=== PATIENT | male | born 1960 | race Caucasian/White ===

== ENCOUNTER 2017-12-19 04:51 | Emergency (ER) | payer MEDICAID, SELFPAY ==
[2017-12-19 04:53] VITALS: BP 154/99; PULSE 64; RESP 15; TEMP 36.7; O2SAT 93; BMI 28.5
--- NOTE | 2017-12-19 05:14 | RAD_ITS ---
STUDY: X-RAY CHEST REASON FOR EXAM: Male, 57 years old. Hyperglycemia TECHNIQUE: Frontal and lateral views of the chest. COMPARISON: September 01, 2017 FINDINGS: The lungs are clear and expanded. There is no demonstrated pleural abnormality. Normal size heart. Normal mediastinum and marcie. Normal visualized pulmonary arteries. Normal visualized aortic arch and descending thoracic aorta. Normal visualized thoracic spine. Normal visualized ribs, clavicles, and shoulders. There is no demonstrated abnormality of the visualized soft tissue structures of the upper abdomen. RAD/Chest PA and Lateral IMPRESSION: Normal x-ray examination of the chest. Electronically Signed: Guilherme Hernandez MD at 5:55 EST Tel , Service support ,
--- NOTE | 2017-12-19 05:14 | EKG12_ITS ---
Test Reason : Blood Pressure : / mmHG Vent. Rate : 065 BPM Atrial Rate : 065 BPM P-R Int : 174 ms QRS Dur : 098 ms QT Int : 404 ms P-R-T Axes : 059 -53 010 degrees QTc Int : 420 ms Normal sinus rhythm Left anterior fascicular block Incomplete right bundle branch block Poor R wave progression Abnormal ECG Confirmed by CHRISTOPH TRACY, NAVEED ([id number]), script editor RAPHAEL GRAHAM ([id number]) on 12/21/2017 1:21:26 PM Referred By: ARIEL Confirmed By:NAVEED HAWTHORNE MD
--- NOTE | 2017-12-19 05:19 | ED.DCSUM_ITS ---
- ER Visit Summary Date of Service: 12/19/17 Chief Complaint: [] High blood sugar History of Present Illness: The patient is a 57 M [] planing of hyperglycemia for unknown reasons. Patient reports he felt like the symptoms started approximately at 9 PM yesterday, approximately 8 hours ago. He reports mild headache right now. Denies fevers or chest pain or shortness of breath. Reports normal bowel movements. No other complaints at this time. Reports he has type 2 diabetes and is on insulin and metformin. Physical Examination: [] Afebrile, vital signs stable. 57-year-old male in no acute distress. Cardiovascular exam is regular rate and rhythm. Lungs are clear to auscultation. Abdomen is soft and nontender. Test Results: [] Glucose fingerstick upon arrival was 410. CBC within normal limits. BMP within normal limits with exception of a dose of 423. LFTs normal. EKG: Normal sinus rhythm, rate of 65 without ischemic changes. Two-view chest x -ray negative. Emergency Department Course and Treatment: [] Patient given 1 L normal saline bolus. On serial exam his blood sugar was 378. He was given an additional liter of fluid and 15 units of subcutaneous insulin. Patient will be instructed to follow-up with his primary care physician and return if symptoms worsen. Treatment Plan: [] Discharge and follow-up with PCP. Disposition: [] Discharge, stable. Impression: [] Hyperglycemia History of diabetes This note was generated with [facility] dictation software. It may contain incorrect words, spelling, and punctuation that were not noted in review of the chart prior to signing ED Disposition - Plan for ED Patient: Chief Complaint: Hyperglycemia Referrals: Jimmy Ramírez MD [Primary Care Provider] -
[2017-12-19] MEDS: 0.9% Normal Saline 1,000 ML 1000 ML IV ×2 (05:25→06:30)
[2017-12-19 05:29] LABS: Absolute Neutrophil Count 3.7 X10^3/uL (2.0-7.7); Basophil# 0.02 X10^3/uL; Basophil% 0.3 % (0-1); Eosinophil# 0.12 X10^3/uL; Eosinophils% 1.9 % (0-5); Hematocrit 43.8 % (40-54); Hemoglobin 15.8 g/dl (13.0-16.5); Lymphocyte % 32.1 % (19-41); Mean Corp Hgb Conc 36.1 g/gl (32-36); Mean Corpuscular Hgb 29.5 pg (27.0-32.0); Mean Corpuscular Volume 81.9 fL (80-94); Mean Platelet Vol. 9.5 fl (6.2-12.0); Monocyte# 0.37 X10^3/uL; Monocyte% 5.9 % (0-10); Neutrophil # 3.71 X10^3/uL (2.7-7.7); Neutrophil % 59.6 % (47-70); Platelet Count 215 K/mm3 (150-450); RBC Distribution Width CV 13.2 % (11.6-14.6); RBC Distribution Width SD 38.8 fl (35.1-43.9); Red Blood Count 5.35 M/mm3 (4.6-6.2); White Blood Count 6.2 K/mm3 (4.4-11.0)
[2017-12-19 05:30] LABS: POSITIVE COUNT NO; POSITIVE DIFFERENTIAL NO; POSITIVE MORPHOLOGY NO
[2017-12-19 05:34] LABS: ALB/GLOB Ratio 1.2 RATIO (0.9-2.4); AST(SGOT) 13 U/L (15-37); Alanine Aminotransfer ALT/SGPT 17 U/L (16-61); Albumin, Serum 3.8 g/dL (3.2-5.0); Alkaline Phosphatase 72 U/L (45-117); Anion Gap 8 (5-15); BUN 15 mg/dL (7-18); BUN/Creat Ratio 13.2 RATIO (10-20); Calcium,Total 9.1 mg/dL (8.5-10.1); Chloride 98 mmol/L (98-107); Creatinine, Serum 1.14 mg/dL (0.70-1.30); EST Glomerular Filtration Rate 70 mL/min (>60); Est Glom Filt Rate - Afr Amer 85 mL/min (>60); Globulin 3.3 g/dL (2.2-4.2); Glucose 423 mg/dL (74-106); Potassium 3.7 mmol/L (3.5-5.1); Protein, Total 7.1 g/dL (6.4-8.2); Sodium Level 135 mmol/L (136-145)
--- NOTE | 2017-12-19 07:09 | ED.DEP ---
ED Disposition - Plan for ED Patient: Disposition: Home or Assisted Living Chief Complaint: Hyperglycemia Diagnosis: DM (diabetes mellitus) Instructions: ED Hyperglycemia Diabetic Referrals: Jimmy Ramírez MD [Primary Care Provider] -
[2017-12-19 07:11] LABS: Bedside Glucose 378 mg/dL (70-110)
[2017-12-19 08:36] LABS: Bedside Glucose 328 mg/dL (70-110)
[2017-12-19 09:04] VITALS: BP 110/67; PULSE 53; RESP 14; O2SAT 93
[2017-12-20 10:56] LABS: Bedside Glucose 410 mg/dL (70-110)
== END 2017-12-19 09:09 | disposition home or self-care (01) ==
PROVIDERS: Emergency Provider Emergency Medicine; Family Provider Family Medicine; PCP Family Medicine
DX: E11.65 Type 2 diabetes mellitus with hyperglycemia (principal); Z79.4 Long term (current) use of insulin; I10 Essential (primary) hypertension; E78.00 Pure hypercholesterolemia, unspecified; Z79.82 Long term (current) use of aspirin; Z79.899 Other long term (current) drug therapy
CPT/HCPCS: 71046; 80053; 82962; 85025; 93005; 99285; J7030; A4216

== ENCOUNTER 2017-12-25 01:47 | Emergency (ER) | payer MEDICAID, SELFPAY ==
[2017-12-25 01:49] VITALS: BP 142/90; PULSE 67; RESP 11; TEMP 36.7; O2SAT 93; BMI 28.2
--- NOTE | 2017-12-25 01:50 | EKG12_ITS ---
Test Reason : CP Blood Pressure : / mmHG Vent. Rate : 059 BPM Atrial Rate : 059 BPM P-R Int : 168 ms QRS Dur : 094 ms QT Int : 416 ms P-R-T Axes : 051 -47 -44 degrees QTc Int : 411 ms Sinus bradycardia Left anterior fascicular block Nonspecific ST and T wave abnormality , possible ischemia Abnormal ECG Confirmed by LUIS M RENEE ([id number]), design editor RAPHAEL GRAHAM ([id number]) on 12/27/2017 1:16:14 PM Referred By: MONICA Confirmed By:LUIS M RENEE
--- NOTE | 2017-12-25 01:56 | RAD_ITS ---
STUDY: X-RAY CHEST REASON FOR EXAM: Male, 57 years old. Chest pain TECHNIQUE: Single frontal view of the chest. COMPARISON: 12/19/2017 FINDINGS: Bibasilar atelectasis. There is no demonstrated pleural abnormality. Normal size heart. Normal mediastinum and marcie. Normal visualized pulmonary arteries. Normal visualized aortic arch and descending thoracic aorta. Normal visualized thoracic spine. Normal visualized ribs, clavicles, and shoulders. There is no demonstrated abnormality of the visualized soft tissue structures of the upper abdomen. RAD/Chest 1 View (Portable) IMPRESSION: Bibasilar atelectasis. Electronically Signed: Guilherme Hernandez MD at 2:23 EST Tel , Service support ,
--- NOTE | 2017-12-25 02:02 | ED.VISSUMM ---
- ER Visit Summary Date of Service: 12/25/17 Chief Complaint: Chest pain and indigestion History of Present Illness: The patient is a 57 M states he had an [place] about 14 years ago. At that time and a cardiac catheterization and believes he has 1 stent. He is on Coumadin. Also has a history of insulin-dependent diabetes, hypertension, elevated cholesterol, COPD. He has never had a DVT or PE. States he was hospitalized last week for his blood sugars being elevated. Tonight he was sitting at home watching TV about 3 hours prior to arrival and started getting chest discomfort. Associated nausea and diaphoresis. He denies vomiting or melena. He denies fever or significant cough. He denies any recent exertional symptoms. He denies any calf pain or swelling. Physical Examination: Middle-aged male no acute distress. Vital signs are stable he is afebrile. His pulse ox is 93% on room air no hypoxia. He is in no distress. H EENT exam unremarkable. Neck nontender no lymphadenopathy. Trachea midline. Lungs clear to auscultation bilaterally. Chest wall nontender. Heart is regular rate and rhythm no murmur. Abdomen is soft and nontender. He is moving all 4 extremities. They are neurovascularly intact. They are nontender without edema or cords. He is equal and symmetrical radial pulses. Neurologically is awake and alert with no focal motor deficits. Back exam nontender. Skin exam unremarkable. Test Results: Chest x-ray shows normal cardiac silhouette and mediastinum. No acute abnormality. Read both by myself and radiologist. CBC normal. Electrolytes normal. Normal creatinine and gap. Blood sugar was elevated 410. PT/INR normal. Troponin normal. Initial EKG shows a sinus rhythm rate of 59 with an incomplete right bundle branch block. There are some T-wave inversions in inferior and lateral leads but no significant change from a prior EKG. A second EKG was done at 12 25 and again showed a sinus rhythm rate is 63 with no significant change from the first. Repeat troponin done 3 hours after the first shows no changes normal also. Emergency Department Course and Treatment: Patient with chest pain with a history of coronary artery disease. Cardiac workup will be pursued. He will be given aspirin. Repeat exam patient is doing well at 30 and will be discharged home. Treatment Plan: Patient was offered sublingual nitro which she refused. He said he was given nitro by the squad made his pain worse. He was then given IV Nubain. He has been reassessed multiple times each time he is lying in bed appears comfortable but states he is having pain. Disposition: Discharge Impression: Acute chest pain of uncertain etiology History of CAD, [place], hypertension, hypercholesterolemia and insulin-dependent diabetes. History of reflux This note was generated with [employer] dictation software. It may contain incorrect words, spelling, and punctuation that were not noted in review of the chart prior to signing ED Disposition - Plan for ED Patient: Disposition: Home or Assisted Living Chief Complaint: Chest Pain Instructions: ED Chest Pain Atypical Unkn Cause Referrals: Jimmy Ramírez MD [Primary Care Provider] - As soon as possible Additional Instructions: Return if feeling worse. Watch her blood sugars closely tonight in the ER your blood sugar was 410.
--- NOTE | 2017-12-25 02:05 | ED.DCSUM_ITS ---
- ER Visit Summary Date of Service: 12/25/17 Chief Complaint: Chest pain and indigestion History of Present Illness: The patient is a 57 M states he had an NM about 14 years ago. At that time and a cardiac catheterization and believes he has 1 stent. He is on Coumadin. Also has a history of insulin-dependent diabetes, hypertension, elevated cholesterol, COPD. He has never had a DVT or PE. States he was hospitalized last week for his blood sugars being elevated. Tonight he was sitting at home watching TV about 3 hours prior to arrival and started getting chest discomfort. Associated nausea and diaphoresis. He denies vomiting or melena. He denies fever or significant cough. He denies any recent exertional symptoms. He denies any calf pain or swelling. Physical Examination: Middle-aged male no acute distress. Vital signs are stable he is afebrile. His pulse ox is 93% on room air no hypoxia. He is in no distress. H EENT exam unremarkable. Neck nontender no lymphadenopathy. Trachea midline. Lungs clear to auscultation bilaterally. Chest wall nontender. Heart is regular rate and rhythm no murmur. Abdomen is soft and nontender. He is moving all 4 extremities. They are neurovascularly intact. They are nontender without edema or cords. He is equal and symmetrical radial pulses. Neurologically is awake and alert with no focal motor deficits. Back exam nontender. Skin exam unremarkable. Test Results: Chest x-ray shows normal cardiac silhouette and mediastinum. No acute abnormality. Read both by myself and radiologist. CBC normal. Electrolytes normal. Normal creatinine and gap. Blood sugar was elevated 410. PT/INR normal. Troponin normal. Initial EKG shows a sinus rhythm rate of 59 with an incomplete right bundle branch block. There are some T-wave inversions in inferior and lateral leads but no significant change from a prior EKG. A second EKG was done at 12 25 and again showed a sinus rhythm rate is 63 with no significant change from the first. Repeat troponin done 3 hours after the first shows no changes normal also. Emergency Department Course and Treatment: Patient with chest pain with a history of coronary artery disease. Cardiac workup will be pursued. He will be given aspirin. Repeat exam patient is doing well at 30 and will be discharged home. Treatment Plan: Patient was offered sublingual nitro which she refused. He said he was given nitro by the squad made his pain worse. He was then given IV Nubain. He has been reassessed multiple times each time he is lying in bed appears comfortable but states he is having pain. Disposition: Discharge Impression: Acute chest pain of uncertain etiology History of CAD, [place], hypertension, hypercholesterolemia and insulin-dependent diabetes. History of reflux This note was generated with [employer] dictation software. It may contain incorrect words, spelling, and punctuation that were not noted in review of the chart prior to signing ED Disposition - Plan for ED Patient: Disposition: Home or Assisted Living Chief Complaint: Chest Pain Instructions: ED Chest Pain Atypical Unkn Cause Referrals: Jimmy Ramírez MD [Primary Care Provider] - As soon as possible Additional Instructions: Return if feeling worse. Watch her blood sugars closely tonight in the ER your blood sugar was 410.
[2017-12-25 02:14] LABS: Prothrombin Time (Protime)PT. 12.5 SECONDS (11.7-14.9)
--- NOTE | 2017-12-25 02:21 | EKG12_ITS ---
Test Reason : REPEAT Blood Pressure : / mmHG Vent. Rate : 063 BPM Atrial Rate : 063 BPM P-R Int : 174 ms QRS Dur : 098 ms QT Int : 416 ms P-R-T Axes : 049 -38 016 degrees QTc Int : 425 ms Normal sinus rhythm Left axis deviation Abnormal ECG Confirmed by LUIS M RENEE ([id number]), editor book RAPHAEL GRAHAM ([id number]) on 12/27/2017 1:16:26 PM Referred By: MONICA Confirmed By:LUIS M RENEE
[2017-12-25 02:23] LABS: Absolute Lymphocyte Count 2.29 X10^3/ul (0.83-4.51); Absolute Neutrophil Count 4.4 X10^3/uL (2.0-7.7); BUN 10 mg/dL (7-18); Basophil# 0.03 X10^3/uL; Basophil% 0.4 % (0-1); Creatinine, Serum 0.95 mg/dL (0.70-1.30); Eosinophil# 0.16 X10^3/uL; Eosinophils% 2.1 % (0-5); Estimated Creatinine Clearance 108.12 ml/min; Glucose 410 mg/dL (74-106); Hematocrit 40.5 % (40-54); Lymphocyte # 2.29 X10^3/ul (4.0); Lymphocyte % 30.5 % (19-41); Mean Corpuscular Volume 79.6 fL (80-94); Mean Platelet Vol. 9.4 fl (6.2-12.0); Monocyte# 0.62 X10^3/uL; Monocyte% 8.3 % (0-10); Neutrophil # 4.38 X10^3/uL (2.7-7.7); Neutrophil % 58.4 % (47-70); Platelet Count 250 K/mm3 (150-450); RBC Distribution Width CV 13.2 % (11.6-14.6); RBC Distribution Width SD 37.3 fl (35.1-43.9); Red Blood Count 5.09 M/mm3 (4.6-6.2); White Blood Count 7.5 K/mm3 (4.4-11.0)
[2017-12-25 02:24] LABS: Anion Gap 6 (5-15); BUN/Creat Ratio 10.5 RATIO (10-20); Chloride 101 mmol/L (98-107); EST Glomerular Filtration Rate 87 mL/min (>60); Est Glom Filt Rate - Afr Amer 105 mL/min (>60); Hemoglobin 14.8 g/dl (13.0-16.5); Mean Corp Hgb Conc 36.5 g/gl (32-36); Mean Corpuscular Hgb 29.1 pg (27.0-32.0); Potassium 3.6 mmol/L (3.5-5.1); Sodium Level 136 mmol/L (136-145)
[2017-12-25 02:25] LABS: POSITIVE COUNT NO; POSITIVE DIFFERENTIAL NO; POSITIVE MORPHOLOGY NO
[2017-12-25 02:47] VITALS: BP 119/80; PULSE 64; RESP 16; O2SAT 99
[2017-12-25 03:00] VITALS: BP 112/80; PULSE 65; RESP 17; O2SAT 95
[2017-12-25] MEDS: Nalbuphine 10 MG/ML Ampul IV (03:16)
--- NOTE | 2017-12-25 03:31 | ED.DEP ---
ED Disposition - Plan for ED Patient: Disposition: Home or Assisted Living Chief Complaint: Chest Pain Instructions: ED Chest Pain Atypical Unkn Cause Referrals: Jimmy Ramírez MD [Primary Care Provider] - As soon as possible Additional Instructions: Return if feeling worse. Watch her blood sugars closely tonight in the ER your blood sugar was 410.
[2017-12-25 05:17] VITALS: BP 115/81; PULSE 62; RESP 15; O2SAT 95
[2017-12-25 05:34] VITALS: BP 116/81; PULSE 66; RESP 12; O2SAT 95
== END 2017-12-25 05:35 | disposition home or self-care (01) ==
PROVIDERS: Emergency Provider Emergency Medicine; Family Provider Family Medicine; PCP Family Medicine
DX: R07.9 Chest pain, unspecified (principal); I25.10 Atherosclerotic heart disease of native coronary artery without angina pectoris; I25.2 Old myocardial infarction; I10 Essential (primary) hypertension; E78.00 Pure hypercholesterolemia, unspecified; E11.9 Type 2 diabetes mellitus without complications; Z79.4 Long term (current) use of insulin; Z79.84 Long term (current) use of oral hypoglycemic drugs; K21.9 Gastro-esophageal reflux disease without esophagitis; J44.9 Chronic obstructive pulmonary disease, unspecified; Z95.5 Presence of coronary angioplasty implant and graft; Z79.82 Long term (current) use of aspirin; Z79.899 Other long term (current) drug therapy
CPT/HCPCS: 71045; 80048; 84484; 85025; 85610; 93005; 96374; 99285; A4216

== ENCOUNTER 2018-02-20 22:47 | Emergency (ER) | payer MEDICAID, SELFPAY ==
[2018-02-20 23:00] VITALS: BP 149/73; PULSE 79; RESP 17; TEMP 37.3; O2SAT 95; BMI 28.0
--- NOTE | 2018-02-20 23:25 | RAD_ITS ---
STUDY: X-RAY CHEST REASON FOR EXAM: Male, 57 years old. Cough, congestion and fever. TECHNIQUE: PA and lateral views of the chest. COMPARISON: 12/25/2017. FINDINGS: There again is mild elevation of the right hemidiaphragm. There are hypoventilatory changes. No focal infiltrate is seen. There is no demonstrated pleural abnormality. Normal size heart. Normal mediastinum and marcie. Normal visualized pulmonary arteries. There is mild atherosclerotic tortuosity of the aortic arch and descending thoracic aorta. Normal visualized thoracic spine. Normal visualized ribs, clavicles, and shoulders. There is no demonstrated abnormality of the visualized soft tissue structures of the upper abdomen. RAD/Chest PA and Lateral IMPRESSION: No active pulmonary disease. Electronically Signed: Jd De La Fuente MD at 23:52 EDT Tel , Service support ,
--- NOTE | 2018-02-20 23:47 | ED.VISSUMM ---
- ER Visit Summary Date of Service: 02/20/18 Chief Complaint: Cough, congestion, fever History of Present Illness: The patient is a 57 M with a 3 day history of cough and congestion. He states he is bringing up sputum but cannot tell me what color. He has had some mild nausea but no vomiting or diarrhea. He reports subjective fevers at home. Physical Examination: Blood pressure is 149/73, temperature 99.2 TA, heart rate 79, respiratory rate 17, pulse ox 95% on room air. The time of my exam his oral temperature is 98.1. Patient is in no acute distress and nontoxic appearing. Head and neck examination is normal. TMs are clear bilaterally. He has moist mucous membranes. Heart is regular rate and rhythm. Palpable pulses are noted throughout. Lungs are clear with good air movement throughout. Abdomen is soft and nontender. Bowel sounds are noted. Extremity examination is unremarkable with full range of motion. Neurologic examination reveals no focal deficits. Test Results: Two-view chest x-ray reveals no active disease. Emergency Department Course and Treatment: Patient was given Tylenol p.o. On repeat evaluation is resting comfortably. O2 sat is 95%. I explained to the patient that his symptoms are all viral in nature need to run their course. Antibiotics will not be beneficial. He will be given a prescription for Tessalon Perles. Treatment Plan: [] Disposition: Discharge Impression: Viral syndrome This note was generated with [employer] dictation software. It may contain incorrect words, spelling, and punctuation that were not noted in review of the chart prior to signing ED Disposition - Plan for ED Patient: Chief Complaint: Cough Referrals: Jimmy Ramírez MD [Primary Care Provider] -
[2018-02-20] MEDS: Acetaminophen 500 MG Tablet 1000 MG PO (23:56)
[2018-02-20 23:57] VITALS: O2SAT 97
--- NOTE | 2018-02-21 00:26 | ED.DEP ---
ED Disposition - Plan for ED Patient: Disposition: Home or Assisted Living Chief Complaint: Cough Instructions: ED Viral Syndrome Prescriptions: Benzonatate [Tessalon Perle] 200 mg PO TID PRN PRN #20 capsule PRN Reason: Cough Referrals: Jimmy Ramírez MD [Primary Care Provider] - 3-5 Days if not improving
[2018-02-21] MEDS: Benzonatate 100 MG Capsule 200 MG PO (00:49)
[2018-02-21 00:50] VITALS: BP 112/65; PULSE 78; RESP 18; O2SAT 93
== END 2018-02-21 00:52 | disposition home or self-care (01) ==
PROVIDERS: Emergency Provider Emergency Medicine; Family Provider Family Medicine; PCP Family Medicine
DX: B34.9 Viral infection, unspecified (principal); I25.10 Atherosclerotic heart disease of native coronary artery without angina pectoris; I25.2 Old myocardial infarction; I10 Essential (primary) hypertension; E11.9 Type 2 diabetes mellitus without complications; E03.9 Hypothyroidism, unspecified; Z79.82 Long term (current) use of aspirin; Z79.4 Long term (current) use of insulin; Z79.84 Long term (current) use of oral hypoglycemic drugs; Z79.899 Other long term (current) drug therapy
CPT/HCPCS: 71046; 99285; A4216

== ENCOUNTER 2018-02-24 07:06 | Emergency (ER) | payer MEDICAID, SELFPAY ==
[2018-02-24 07:06] VITALS: PULSE 70; RESP 15; TEMP 36.6; O2SAT 95; BMI 27.1
[2018-02-24 07:12] VITALS: O2SAT 95
--- NOTE | 2018-02-24 07:27 | RAD_ITS ---
STUDY: X-RAY CHEST REASON FOR EXAM: Male, 57 years old. Cough. TECHNIQUE: Frontal and lateral views of the chest. COMPARISON: February 20, 2018. FINDINGS: The lungs are clear and expanded. There is no demonstrated pleural abnormality. Normal size heart. Normal mediastinum and marcie. Normal visualized pulmonary arteries. Normal visualized aortic arch and descending thoracic aorta. Normal visualized thoracic spine. Normal visualized ribs, clavicles, and shoulders. There is no demonstrated abnormality of the visualized soft tissue structures of the upper abdomen. RAD/Chest PA and Lateral IMPRESSION: There is no evident acute cardiopulmonary disease. Electronically Signed: Ricky Mendez MD at 8:24 EDT , Service support ,
[2018-02-24] MEDS: predniSONE 20 MG Tablet 40 MG PO (07:34)
[2018-02-24 07:40] VITALS: PULSE 60; RESP 18
[2018-02-24] MEDS: Ipratropium/Albuterol Sulfate 3 ML AMPUL.NEB INHALATION (07:40)
--- NOTE | 2018-02-24 08:37 | ED.VISSUMM ---
- ER Visit Summary Date of Service: 02/24/18 Chief Complaint: [Cough and shortness of breath History of Present Illness: The patient is a 57 M presents the emergency department with cough that started ago. Patient was seen in the emergency department 3 or 4 days ago and was started on Tessalon Perles. Patient states he has been using his inhaler not get much relief. Patient does have a history of COPD. Patient also states that yesterday he started having some discomfort in his left lower back. Patient denies any pain radiating down his legs or change in bowel or bladder function. Patient is concerned because his sister recently from breast cancer that had metastasized to the bone therefore he was worried about bone cancer. Patient denies any injury to his back. Patient does not have a history of any type of cancer. [] Physical Examination: [HEENT-PERRLA, EOMI. Cranial nerves II through XII grossly intact. TMs clear. Mucous membranes moist. No adenopathy. Cardiovascular-regular rate and rhythm without murmur or ectopy Lungs-good aeration bilaterally, no accessory muscle use or retractions. Patient has some coarse breath sounds bilaterally with some faint expiratory wheezes noted bilaterally. Abdomen-normoactive bowel sounds, soft, nontender, no rebound or rigidity, no peritoneal signs. Back exam-patient has no tenderness over the thoracic or lumbar spine. Patient has some mild discomfort to palpation over the left lumbar paraspinal musculature that reproduces his pain. Negative straight leg raises. Deep tendon reflexes are plus 2 out of 4 bilaterally at the patella and Achilles. Extremities-intact ?4, normal range of motion, normal pulses, atraumatic] Test Results: [Chest x-ray obtained showed nothing acute. Emergency Department Course and Treatment: [Patient was given a DuoNeb aerosol and was started on prednisone and doxycycline.] Treatment Plan: [Patient was started on prednisone and doxycycline] Disposition: [Discharged home in stable condition. Patient advised to follow-up with his primary care physician in 5-7 days. Patient to return if increasing shortness of breath, worsening back pain, weakness in the extremities, change in bowel or bladder function, or condition should worsen in any way.] Impression: [Asthmatic bronchitis Lumbar strain] This note was generated with [employer] software. It may contain incorrect words, spelling, and punctuation that were not noted in review of the chart prior to signing ED Disposition - Plan for ED Patient: Chief Complaint: Shortness of Breath Referrals: Jimmy Ramírez MD [Primary Care Provider] -
--- NOTE | 2018-02-24 08:41 | ED.DCSUM_ITS ---
- ER Visit Summary Date of Service: 02/24/18 Chief Complaint: [Cough and shortness of breath History of Present Illness: The patient is a 57 M presents the emergency department with cough that started ago. Patient was seen in the emergency department 3 or 4 days ago and was started on Tessalon Perles. Patient states he has been using his inhaler not get much relief. Patient does have a history of COPD. Patient also states that yesterday he started having some discomfort in his left lower back. Patient denies any pain radiating down his legs or change in bowel or bladder function. Patient is concerned because his sister recently from breast cancer that had metastasized to the bone therefore he was worried about bone cancer. Patient denies any injury to his back. Patient does not have a history of any type of cancer. [] Physical Examination: [HEENT-PERRLA, EOMI. Cranial nerves II through XII grossly intact. TMs clear. Mucous membranes moist. No adenopathy. Cardiovascular-regular rate and rhythm without murmur or ectopy Lungs-good aeration bilaterally, no accessory muscle use or retractions. Patient has some coarse breath sounds bilaterally with some faint expiratory wheezes noted bilaterally. Abdomen-normoactive bowel sounds, soft, nontender, no rebound or rigidity, no peritoneal signs. Back exam-patient has no tenderness over the thoracic or lumbar spine. Patient has some mild discomfort to palpation over the left lumbar paraspinal musculature that reproduces his pain. Negative straight leg raises. Deep tendon reflexes are plus 2 out of 4 bilaterally at the patella and Achilles. Extremities-intact ?4, normal range of motion, normal pulses, atraumatic] Test Results: [Chest x-ray obtained showed nothing acute. Emergency Department Course and Treatment: [Patient was given a DuoNeb aerosol and was started on prednisone and doxycycline.] Treatment Plan: [Patient was started on prednisone and doxycycline] Disposition: [Discharged home in stable condition. Patient advised to follow- up with his primary care physician in 5-7 days. Patient to return if increasing shortness of breath, worsening back pain, weakness in the extremities , change in bowel or bladder function, or condition should worsen in any way.] Impression: [Asthmatic bronchitis Lumbar strain] This note was generated with [employer] software. It may contain incorrect words, spelling, and punctuation that were not noted in review of the chart prior to signing ED Disposition - Plan for ED Patient: Chief Complaint: Shortness of Breath Referrals: Jimmy Raímrez MD [Primary Care Provider] -
--- NOTE | 2018-02-24 08:41 | ED.DEP ---
ED Disposition - Plan for ED Patient: Chief Complaint: Shortness of Breath Instructions: ED Bronchitis Asthmatic, ED Sprain Strain Lumbar Prescriptions: Doxycycline Monohydrate 100 mg PO BID #20 cap Prednisone [Deltasone] 20 mg PO BID #10 tab Referrals: Jimmy Ramírez MD [Primary Care Provider] - 5-7 Days
[2018-02-24] MEDS: Doxycycline 100 MG CAPSULE PO (09:26)
[2018-02-24 09:28] VITALS: BP 110/75; PULSE 69; RESP 14; RESP 16; O2SAT 95
== END 2018-02-24 09:29 | disposition home or self-care (01) ==
LOC: ED 08:06
PROVIDERS: Emergency Provider Emergency Medicine; Family Provider Family Medicine; PCP Family Medicine
DX: J44.9 Chronic obstructive pulmonary disease, unspecified (principal); S39.012A Strain of muscle, fascia and tendon of lower back, initial encounter; X58.XXXA Exposure to other specified factors, initial encounter; Y93.9 Activity, unspecified; Y92.9 Unspecified place or not applicable; I25.10 Atherosclerotic heart disease of native coronary artery without angina pectoris; I10 Essential (primary) hypertension; E78.00 Pure hypercholesterolemia, unspecified; E11.9 Type 2 diabetes mellitus without complications; Z79.4 Long term (current) use of insulin; Z79.84 Long term (current) use of oral hypoglycemic drugs; Z79.82 Long term (current) use of aspirin; Z79.899 Other long term (current) drug therapy
CPT/HCPCS: 71046; 94640; 99283

== ENCOUNTER 2018-03-12 02:31 | Emergency (ER) | payer MEDICAID, SELFPAY ==
[2018-03-12 02:32] VITALS: BP 149/81; PULSE 73; RESP 18; TEMP 37; O2SAT 93; BMI 28.4
[2018-03-12 02:41] LABS: Bedside Glucose 425 mg/dL (70-110)
[2018-03-12] MEDS: 0.9% Normal Saline 1,000 ML 1000 ML IV (02:41)
--- NOTE | 2018-03-12 02:45 | ED.VISSUMM ---
- ER Visit Summary Date of Service: 03/12/18 Chief Complaint: Elevated blood sugar History of Present Illness: The patient is a 57 M 3 of insulin-dependent diabetes prior [place] and COPD. Patient states that he had a strawberry milkshake tonight and his blood sugar has been running high. He states he has been taking his medications. He has had a mild cough. But he denies any nausea, vomiting or diarrhea. He has had hyperglycemia before. He was once in DKA before he was diagnosed with diabetes. Physical Examination: Appearing middle-aged male. Vital signs are stable afebrile. Pulse ox is 93% on room air no signs of hypoxia. No distress. H EENT exam is unremarkable. Neck is nontender without lymphadenopathy. Lungs clear to auscultation bilaterally. Heart regular rhythm and murmur. Abdomen is soft and nontender. Extremities he moves all 4. Calves are without edema or cords. Back exam nontender. Neurologically is awake and alert with no focal motor deficits. Test Results: CBC with differential was normal. The LABEL MAKER showed a glucose of 445 with a normal anion gap of 9 and normal creatinine. His serum ketones was negative. Emergency Department Course and Treatment: Patient has hyperglycemia. Bgt was 425. He will be started on a liter of normal saline and screening labs will be obtained. Treatment Plan: Repeat exam at 01 12 he is doing well. He is almost received the entire liter of normal saline. He will be given 15 units subcu of insulin and have his blood sugar rechecked 1 hour after that. Disposition: Discharge Impression: Acute hyperglycemia History of insulin-dependent diabetes This note was generated with [employer] dictation software. It may contain incorrect words, spelling, and punctuation that were not noted in review of the chart prior to signing ED Disposition - Plan for ED Patient: Chief Complaint: Hyperglycemia Referrals: Jimmy Ramírez MD [Primary Care Provider] -
--- NOTE | 2018-03-12 02:49 | ED.DCSUM_ITS ---
- ER Visit Summary Date of Service: 03/12/18 Chief Complaint: Elevated blood sugar History of Present Illness: The patient is a 57 M 3 of insulin-dependent diabetes prior LA and COPD. Patient states that he had a strawberry milkshake tonight and his blood sugar has been running high. He states he has been taking his medications. He has had a mild cough. But he denies any nausea, vomiting or diarrhea. He has had hyperglycemia before. He was once in DKA before he was diagnosed with diabetes. Physical Examination: Appearing middle-aged male. Vital signs are stable afebrile. Pulse ox is 93% on room air no signs of hypoxia. No distress. H EENT exam is unremarkable. Neck is nontender without lymphadenopathy. Lungs clear to auscultation bilaterally. Heart regular rhythm and murmur. Abdomen is soft and nontender. Extremities he moves all 4. Calves are without edema or cords. Back exam nontender. Neurologically is awake and alert with no focal motor deficits. Test Results: CBC with differential was normal. The HEMATOLOGIST showed a glucose of 445 with a normal anion gap of 9 and normal creatinine. His serum ketones was negative. Emergency Department Course and Treatment: Patient has hyperglycemia. Bgt was 425. He will be started on a liter of normal saline and screening labs will be obtained. Treatment Plan: Repeat exam at 01 12 he is doing well. He is almost received the entire liter of normal saline. He will be given 15 units subcu of insulin and have his blood sugar rechecked 1 hour after that. Disposition: Discharge Impression: Acute hyperglycemia History of insulin-dependent diabetes This note was generated with [employer] dictation software. It may contain incorrect words, spelling, and punctuation that were not noted in review of the chart prior to signing ED Disposition - Plan for ED Patient: Chief Complaint: Hyperglycemia Referrals: Jimmy Ramírez MD [Primary Care Provider] -
[2018-03-12 02:53] LABS: Absolute Lymphocyte Count 2.29 X10^3/ul (0.83-4.51); Absolute Neutrophil Count 5.4 X10^3/uL (2.0-7.7); Basophil# 0.02 X10^3/uL; Basophil% 0.2 % (0-1); Eosinophils% 2.3 % (0-5); Hematocrit 43.3 % (40-54); Hemoglobin 15.5 g/dl (13.0-16.5); Lymphocyte # 2.29 X10^3/ul (4.0); Lymphocyte % 26.8 % (19-41); Mean Corp Hgb Conc 35.8 g/gl (32-36); Mean Corpuscular Hgb 29.3 pg (27.0-32.0); Mean Corpuscular Volume 81.9 fL (80-94); Mean Platelet Vol. 9.4 fl (6.2-12.0); Neutrophil # 5.41 X10^3/uL (2.7-7.7); Neutrophil % 63.6 % (47-70); Platelet Count 236 K/mm3 (150-450); RBC Distribution Width CV 13.1 % (11.6-14.6); RBC Distribution Width SD 38.7 fl (35.1-43.9); Red Blood Count 5.29 M/mm3 (4.6-6.2); White Blood Count 8.5 K/mm3 (4.4-11.0)
[2018-03-12 02:54] LABS: POSITIVE COUNT NO; POSITIVE DIFFERENTIAL NO; POSITIVE MORPHOLOGY NO
[2018-03-12 03:01] LABS: Anion Gap 9 (5-15); BUN 12 mg/dL (7-18); BUN/Creat Ratio 11.3 RATIO (10-20); Chloride 100 mmol/L (98-107); Creatinine, Serum 1.06 mg/dL (0.70-1.30); EST Glomerular Filtration Rate 76 mL/min (>60); Est Glom Filt Rate - Afr Amer 92 mL/min (>60); Glucose 445 mg/dL (74-106); Potassium 3.7 mmol/L (3.5-5.1); Sodium Level 137 mmol/L (136-145)
--- NOTE | 2018-03-12 03:18 | ED.DEP ---
ED Disposition - Plan for ED Patient: Disposition: Home or Assisted Living Chief Complaint: Hyperglycemia Instructions: ED Hyperglycemia Diabetic Referrals: Jimmy Ramírez MD [Primary Care Provider] - 3-5 Days if not improving Additional Instructions: Watch blood sugars closely. Check it tonight before you go to bed. Take your normal insulin dosages tomorrow. And sliding scale if your blood sugar is running above 200. Plenty of water and watch your dietary intake of sugar.
[2018-03-12] MEDS: Famotidine 20 MG Tablet 40 MG PO (03:32)
[2018-03-12 04:26] VITALS: PULSE 70; RESP 16; O2SAT 98
[2018-03-12 04:26] LABS: Bedside Glucose 397 mg/dL (70-110)
== END 2018-03-12 04:27 | disposition home or self-care (01) ==
PROVIDERS: Emergency Provider Emergency Medicine; Family Provider Family Medicine; PCP Family Medicine
DX: E11.65 Type 2 diabetes mellitus with hyperglycemia (principal); I25.2 Old myocardial infarction; J44.9 Chronic obstructive pulmonary disease, unspecified; I25.10 Atherosclerotic heart disease of native coronary artery without angina pectoris; Z95.5 Presence of coronary angioplasty implant and graft; Z79.4 Long term (current) use of insulin; Z79.84 Long term (current) use of oral hypoglycemic drugs; Z79.82 Long term (current) use of aspirin; Z79.899 Other long term (current) drug therapy
CPT/HCPCS: 80048; 82009; 82962; 85025; 96360; 99285; J7030

== ENCOUNTER 2018-08-13 20:44 | Emergency (ER) | payer MEDICAID, SELFPAY ==
[2018-08-13 20:45] VITALS: BP 127/95; PULSE 82; RESP 16; TEMP 36.3; O2SAT 95; BMI 27.5
--- NOTE | 2018-08-13 22:56 | ED.VISSUMM ---
- ER Visit Summary Date of Service: 08/13/18 Chief Complaint: Neck pain History of Present Illness: The patient is a 58 M who presents with neck pain that has been getting worse over the past 3 days. Patient denies any trauma or injury. Patient states the pain is worse when he rotates his head to the right and left. Patient denies any radiation of the pain. Patient states he had an episode of some numbness over the right trapezius area earlier today but this has resolved. Patient denies any weakness. Patient denies any bowel or bladder changes. Patient denies any saddle anesthesia. Patient states he took ibuprofen and Flexeril earlier today which has helped. Patient states his pain has improved since he arrived here in the emergency department. Physical Examination: Vital signs are stable. Patient is afebrile. Patient is in no acute distress. Musculoskeletal exam reveals tenderness and spasm of the cervical paraspinal muscles. There is no midline tenderness. There is no bony crepitance or step-off noted. Range of motion was slightly limited in rotation bilaterally. Strength is 5/5 bilateral in the upper and lower extremities. There are no sensory deficits noted. The remaining physical exam is within normal limits. Emergency Department Course and Treatment: Patient was given prescription for ibuprofen. Patient was instructed to continue his Flexeril at bedtime as needed for muscle spasms. Patient was instructed to follow-up with his primary care physician in 7-10 days. Patient understood and was agreeable with the plan. All questions were answered. Disposition: Discharged home Impression: Acute cervical strain This note was generated with [employer] dictation software. It may contain incorrect words, spelling, and punctuation that were not noted in review of the chart prior to signing ED Disposition - Plan for ED Patient: Disposition: Home or Assisted Living Chief Complaint: Other, Pain/Inj Diagnosis: Acute cervical myofascial strain Instructions: ED Sprain Strain Neck Prescriptions: Ibuprofen 800 mg PO Q8H PRN PRN #20 tab PRN Reason: Pain Referrals: uSshant Fernandez MD [Primary Care Provider] -
--- NOTE | 2018-08-13 23:00 | ED.DCSUM_ITS ---
- ER Visit Summary Date of Service: 08/13/18 Chief Complaint: Neck pain History of Present Illness: The patient is a 58 M who presents with neck pain that has been getting worse over the past 3 days. Patient denies any trauma or injury. Patient states the pain is worse when he rotates his head to the right and left. Patient denies any radiation of the pain. Patient states he had an episode of some numbness over the right trapezius area earlier today but this has resolved. Patient denies any weakness. Patient denies any bowel or bladder changes. Patient denies any saddle anesthesia. Patient states he took ibuprofen and Flexeril earlier today which has helped. Patient states his pain has improved since he arrived here in the emergency department. Physical Examination: Vital signs are stable. Patient is afebrile. Patient is in no acute distress. Musculoskeletal exam reveals tenderness and spasm of the cervical paraspinal muscles. There is no midline tenderness. There is no bony crepitance or step-off noted. Range of motion was slightly limited in rotation bilaterally. Strength is 5/5 bilateral in the upper and lower extremities. There are no sensory deficits noted. The remaining physical exam is within normal limits. Emergency Department Course and Treatment: Patient was given prescription for ibuprofen. Patient was instructed to continue his Flexeril at bedtime as needed for muscle spasms. Patient was instructed to follow-up with his primary care physician in 7-10 days. Patient understood and was agreeable with the plan. All questions were answered. Disposition: Discharged home Impression: Acute cervical strain This note was generated with [employer] dictation software. It may contain incorrect words, spelling, and punctuation that were not noted in review of the chart prior to signing ED Disposition - Plan for ED Patient: Disposition: Home or Assisted Living Chief Complaint: Other, Pain/Inj Diagnosis: Acute cervical myofascial strain Instructions: ED Sprain Strain Neck Prescriptions: Ibuprofen 800 mg PO Q8H PRN PRN #20 tab PRN Reason: Pain Referrals: Sushant Fernandez MD [Primary Care Provider] -
[2018-08-13 23:18] VITALS: RESP 18
== END 2018-08-13 23:19 | disposition home or self-care (01) ==
PROVIDERS: Emergency Provider Emergency Medicine; Family Provider Family Medicine; PCP Family Medicine
DX: S16.1XXA Strain of muscle, fascia and tendon at neck level, initial encounter (principal); X58.XXXA Exposure to other specified factors, initial encounter; Y93.9 Activity, unspecified; E11.9 Type 2 diabetes mellitus without complications; Z79.4 Long term (current) use of insulin; Z79.82 Long term (current) use of aspirin; Z79.899 Other long term (current) drug therapy
CPT/HCPCS: 99283

== ENCOUNTER 2018-09-25 04:41 | Emergency (ER) | payer MEDICAID, SELFPAY ==
[2018-09-25 04:43] VITALS: PULSE 90; RESP 18; TEMP 36.9; O2SAT 98; O2SAT 99; BMI 28.6
[2018-09-25 04:45] VITALS: BP 131/95
--- NOTE | 2018-09-25 04:57 | RAD_ITS ---
HISTORY: COUGH, COLD SX X 3 WEEKS EXAM: XR Chest 2 Views: COMPARISON: 02/24/2018 FINDINGS: Limited inspiration. Mild elevation of the right hemidiaphragm compatible with chronic change. Normal heart size. No vascular congestion, pleural effusion, or pulmonary consolidation. No pneumothorax. The bony thorax appears intact. IMPRESSION: No acute cardiopulmonary disease. at 0537 Reported and signed by: Beck Camargo MD Electronically Signed: Beck Camargo, at 5:35 EST Tel , Service support , RAD/Chest PA and Lateral
--- NOTE | 2018-09-25 05:07 | ED.DEP ---
ED Disposition - Plan for ED Patient: Disposition: Home or Assisted Living Chief Complaint: Cold Sx Instructions: ED Upper Resp Infec No Abx Tx Referrals: Sushant Fernandez MD [Primary Care Provider] -
--- NOTE | 2018-09-25 05:07 | ED.DCSUM_ITS ---
- ER Visit Summary Date of Service: 09/25/18 Chief Complaint: [] I have a cold History of Present Illness: The patient is a 58 M it is he has had a cold for the last 2 weeks. Gradual onset intermittent coughing with nasal congestion. Mild nonproductive. No home treatment. No sick contacts. Does not smoke. Physical Examination: [] Vital signs reviewed General: Well-nourished well-developed Head: Normocephalic atraumatic Eyes: Pupils equal round and reactive to light extraocular movements intact ENT: TMs clear no hemotympanum no trauma Neck: Nontender full range of motion Cardiovascular: Regular rate rhythm no murmurs normal S1-S2 Respiratory: No distress clear to auscultation bilaterally chest nontender Abdomen: Soft nontender nondistended normal bowel sounds no masses Back: Nontender no CVA tenderness Extremities: Nontender active range of motion ?4 extremities no trauma Skin: Normal color no trauma Neuro alert oriented cranial nerves II through XII intact normal strength sensation reflexes Test Results: [] Emergency Department Course and Treatment: [] At this time I feel the patient has upper respiratory infection. Chest x-ray negative. Will use symptomatic management [id number]. I do not feel he needs antibiotics. Treatment Plan: [] Disposition: [] Impression: [] Upper respiratory infection This note was generated with [employer] dictation software. It may contain incorrect words, spelling, and punctuation that were not noted in review of the chart prior to signing ED Disposition - Plan for ED Patient: Chief Complaint: Cold Sx Referrals: Sushant Fernandez MD [Primary Care Provider] -
[2018-09-25 06:42] VITALS: PULSE 88; RESP 18; O2SAT 99
== END 2018-09-25 06:52 | disposition home or self-care (01) ==
LOC: ED 05:10
PROVIDERS: Emergency Provider Emergency Medicine; Family Provider Family Medicine; PCP Family Medicine
DX: J06.9 Acute upper respiratory infection, unspecified (principal); I10 Essential (primary) hypertension; E03.9 Hypothyroidism, unspecified; E11.9 Type 2 diabetes mellitus without complications; Z79.4 Long term (current) use of insulin; Z79.82 Long term (current) use of aspirin; Z79.899 Other long term (current) drug therapy
CPT/HCPCS: 71046; 99282

== ENCOUNTER 2018-10-27 07:16 | Emergency (ER) | payer MEDICAID, SELFPAY ==
[2018-10-27 07:17] VITALS: BP 164/84; PULSE 73; RESP 16; TEMP 37; O2SAT 94; BMI 27.8
--- NOTE | 2018-10-27 07:25 | RAD_ITS ---
STUDY: X-RAY CHEST REASON FOR EXAM: Male, 58 years old. Cough. TECHNIQUE: Frontal and lateral views of the chest. COMPARISON: September 25, 2018. FINDINGS: The lungs are clear and expanded. There is no demonstrated pleural abnormality. Normal size heart. Normal mediastinum and marcie. Normal visualized pulmonary arteries. Normal visualized aortic arch and descending thoracic aorta. Normal visualized thoracic spine. Normal visualized ribs, clavicles, and shoulders. There is no demonstrated abnormality of the visualized soft tissue structures of the upper abdomen. RAD/Chest PA and Lateral IMPRESSION: Normal x-ray examination of the chest. Electronically Signed: Live Busch MD at 8:21 EST , Service support ,
--- NOTE | 2018-10-27 07:32 | ED.DCSUM_ITS ---
- ER Visit Summary Date of Service: 10/27/18 Chief Complaint: Cough History of Present Illness: The patient is a 58 M with a cough. This started over a week ago. He was seen previously and diagnosed with a respiratory virus. He said that his symptoms improved and then got worse of the last few days. He has trouble sleeping because of frequent coughing. He is not taking any medication for this. He denies fevers or sputum. He does have some left mid back pain after coughing. Denies chest pain. Denies any history of DVT or PE. Denies leg swelling or calf pain. Physical Examination: Blood pressure 164/84. Otherwise vitals unremarkable. Afebrile. Alert and oriented. No acute distress. Speaking in breathing comfortably. He does have an occasional dry cough. HEENT exam unremarkable. Lungs show diminished sounds throughout all fowler. Heart regular. Extremities nontender with no edema. Skin appears unremarkable. Test Results: Chest x-ray pending Emergency Department Course and Treatment: Patient likely has a viral syndrome, possibly subacute cough. Also concern for pneumonia. Nothing to suggest ACS, PE. Will check an x-ray. He was treated with a DuoNeb treatment, Tessalon, and naproxen. Will reassess. X-rays were negative. Patient is coughing less on reevaluation but he still feels ill. Pulse ox is 95% on room air. Breathing comfortably. No other changes or abnormal findings. Patient is appropriate for outpatient treatment. Given the duration of his symptoms, will treat with doxycycline. He also received Norflex for continued muscle pains. He was also prescribed Tessalon, Motrin, and Proventil. Follow-up with primary care. Return for new or worsening issues. Treatment Plan: As above Disposition: Discharge Impression: 1. Acute bronchitis This note was generated with [employer] dictation software. It may contain incorrect words, spelling, and punctuation that were not noted in review of the chart prior to signing ED Disposition - Plan for ED Patient: Chief Complaint: Cough Referrals: Sushant Fernandez MD [Primary Care Provider] -
[2018-10-27] MEDS: Ipratropium/Albuterol Sulfate 3 ML AMPUL.NEB INHALATION (07:33)
[2018-10-27 07:34] VITALS: PULSE 75; RESP 22
[2018-10-27] MEDS: Benzonatate 100 MG Capsule PO (07:45)
[2018-10-27] MEDS: Naproxen 500 MG Tablet PO (07:45)
--- NOTE | 2018-10-27 08:32 | ED.DEP ---
ED Disposition - Plan for ED Patient: Chief Complaint: Cough Instructions: Acute Bronchitis Prescriptions: Albuterol Inhaler [Ventolin Hfa] 2 puff INHALATION Q4H PRN PRN #1 inhaler PRN Reason: Wheezing Benzonatate [Tessalon Perle] 100 mg PO TID PRN PRN #20 cap PRN Reason: Cough Ibuprofen [Motrin] 800 mg PO TID PRN PRN #20 tab PRN Reason: Pain Doxycycline [Vibramycin] 100 mg PO BID 10 Days #20 cap Referrals: Sushant Fernandez MD [Primary Care Provider] -
[2018-10-27 08:40] VITALS: BP 135/81; PULSE 78; RESP 16
[2018-10-27] MEDS: Orphenadrine 60 MG/2 ML Ampul IM (08:41)
[2018-10-27] MEDS: Doxycycline 100 MG CAPSULE PO (08:41)
== END 2018-10-27 09:09 | disposition home or self-care (01) ==
PROVIDERS: Emergency Provider Emergency Medicine; Family Provider Family Medicine; PCP Family Medicine
DX: J20.9 Acute bronchitis, unspecified (principal); I25.10 Atherosclerotic heart disease of native coronary artery without angina pectoris; I10 Essential (primary) hypertension; N17.9 Acute kidney failure, unspecified; E11.9 Type 2 diabetes mellitus without complications; E03.9 Hypothyroidism, unspecified; Z79.82 Long term (current) use of aspirin; Z79.4 Long term (current) use of insulin; Z79.84 Long term (current) use of oral hypoglycemic drugs; Z79.899 Other long term (current) drug therapy
CPT/HCPCS: 71046; 94640; 96372; 99285

== ENCOUNTER 2018-10-27 18:26 | Emergency (ER) | payer MEDICAID, SELFPAY ==
[2018-10-27 07:17] VITALS: BMI 27.8
[2018-10-27 18:26] VITALS: BP 142/86; PULSE 89; RESP 16; TEMP 36.9; O2SAT 95; BMI 27.4
[2018-10-27 18:49] VITALS: BP 142/86; PULSE 88; RESP 16; TEMP 36.9; O2SAT 98
[2018-10-27] MEDS: Ipratropium/Albuterol Sulfate 3 ML AMPUL.NEB INHALATION (19:15)
[2018-10-27] MEDS: guaiFENesin 10 ML UDC (200MG/10ML) PO (19:20)
[2018-10-27] MEDS: Mag Hydrox/Al Hydrox/Simeth 30 ML UDC PO (19:39)
[2018-10-27 19:41] VITALS: BP 136/78; PULSE 76; RESP 16; TEMP 36.8; O2SAT 98
[2018-10-27 20:12] VITALS: TEMP 36.8
--- NOTE | 2018-10-27 20:30 | EKG12_ITS ---
Test Reason : Blood Pressure : / mmHG Vent. Rate : 090 BPM Atrial Rate : 090 BPM P-R Int : 164 ms QRS Dur : 096 ms QT Int : 380 ms P-R-T Axes : 051 -35 028 degrees QTc Int : 464 ms Sinus rhythm with Premature atrial complexes Left axis deviation Incomplete right bundle branch block Nonspecific T wave abnormality Abnormal ECG Confirmed by CHRISTOPH TRACY, NAVEED ([id number]), multimedia editor RAPHAEL GRAHAM ([id number]) on 10/30/2018 12:50:52 PM Referred By: MICHELET Confirmed By:NAVEED HAWTHORNE MD
[2018-10-27] MEDS: 0.9% Normal Saline 1,000 ML 1000 ML IV (20:44)
[2018-10-27 20:57] LABS: Absolute Lymphocyte Count 0.57 X10^3/ul (0.83-4.51); Absolute Neutrophil Count 2.7 X10^3/uL (2.0-7.7); Basophil# 0.02 X10^3/uL; Basophil% 0.5 % (0-1); Eosinophil# 0.07 X10^3/uL; Eosinophils% 1.8 % (0-5); Hematocrit 44.2 % (40-54); Hemoglobin 15.9 g/dl (13.0-16.5); Lymphocyte # 0.57 X10^3/ul (4.0); Lymphocyte % 14.7 % (19-41); Mean Corpuscular Hgb 29.2 pg (27.0-32.0); Mean Corpuscular Volume 81.3 fL (80-94); Monocyte% 12.9 % (0-10); Neutrophil # 2.73 X10^3/uL (2.7-7.7); Neutrophil % 70.1 % (47-70); Platelet Count 149 K/mm3 (150-450); RBC Distribution Width CV 13.1 % (11.6-14.6); Red Blood Count 5.44 M/mm3 (4.6-6.2); White Blood Count 3.9 K/mm3 (4.4-11.0)
[2018-10-27 21:02] LABS: Differential Indicated SCAN CRITERIA MET; POSITIVE COUNT NO; POSITIVE DIFFERENTIAL YES; POSITIVE MORPHOLOGY NO
[2018-10-27 21:03] LABS: Anion Gap 9 (5-15); BUN 11 mg/dL (7-18); BUN/Creat Ratio 9.9 RATIO (10-20); Calcium,Total 8.9 mg/dL (8.5-10.1); Chloride 98 mmol/L (98-107); Creatinine, Serum 1.11 mg/dL (0.70-1.30); EST Glomerular Filtration Rate 72 mL/min (>60); Est Glom Filt Rate - Afr Amer 87 mL/min (>60); Estimated Creatinine Clearance 91.42 ml/min; Glucose 403 mg/dL (74-106); Potassium 3.9 mmol/L (3.5-5.1); Sodium Level 138 mmol/L (136-145)
[2018-10-27 21:33] LABS: Platelet Estimate ADEQUATE (ADEQ)
[2018-10-27 21:34] LABS: Red Cell Morphology NORM C+C NORMAL (NORM C&C)
--- NOTE | 2018-10-27 22:10 | ED.DCSUM_ITS ---
- ER Visit Summary Date of Service: 10/27/18 Chief Complaint: Cough History of Present Illness: The patient is a 58 M who was seen earlier today for a 3-day history of cough and congestion. He was discharged after an x-ray and aerosols with prescriptions for albuterol, Tessalon Perles, ibuprofen, and doxyc ycline. Patient returns tonight stating that he just feels awful and he was coughing a lot at home so he came back in. He also feels that he is having increased reflux symptoms. He has not taken any cough syrup or other [id number] medications. Past history is significant for coronary disease, CT, diabetes, hypothyroidism. Physical Examination: Vital signs are unremarkable. Patient is afebrile. Patient sitting upright in bed. He appears ill but he is in no acute distress. Head neck examination was moist mucous membranes. Heart is regular rate and rhythm. Lung sounds are clear. Abdomen is soft and nontender. Test Results: EKG is sinus at 90 with no sign of acute ischemia. CBC was a white count 3.9 with 70% neutrophils. Chemistry studies significant for glucose of 403. Troponin is negative. Emergency Department Course and Treatment: Patient was initially given a DuoNeb treatment along with Robitussin and a GI cocktail. Patient reports worsening chest pain after GI cocktail. At that time labs were obtained along with an EKG. These are all unremarkable and patient is discharged home. I explained to him that he has a viral syndrome and it simply needs to run its course. He is given a prescription for Robitussin in addition to his other medications. On repeat exam he is sleeping comfortably. Treatment Plan: [] Disposition: Discharge Impression: Viral syndrome This note was generated with [employer] dictation software. It may contain incorrect words, spelling, and punctuation that were not noted in review of the chart prior to signing ED Disposition - Plan for ED Patient: Disposition: Home or Assisted Living Chief Complaint: Cough Instructions: ED Viral Syndrome Prescriptions: Guaifenesin Dm [Robitussin Dm] 10 ml PO Q6H PRN PRN #100 ml PRN Reason: Cough Referrals: Sushant Fernandez MD [Primary Care Provider] - 1 Week
[2018-10-27 22:14] VITALS: BP 129/73; PULSE 78; RESP 16; O2SAT 98
[2018-10-27 22:15] VITALS: PULSE 73; RESP 16; TEMP 36.8
[2018-10-30 10:54] LABS: Pathologist Review Reviewed
== END 2018-10-27 22:19 | disposition home or self-care (01) ==
PROVIDERS: Emergency Provider Emergency Medicine; Family Provider Family Medicine; PCP Family Medicine
DX: J20.8 Acute bronchitis due to other specified organisms (principal); I25.10 Atherosclerotic heart disease of native coronary artery without angina pectoris; I10 Essential (primary) hypertension; I25.2 Old myocardial infarction; N17.9 Acute kidney failure, unspecified; E11.9 Type 2 diabetes mellitus without complications; E03.9 Hypothyroidism, unspecified; Z79.82 Long term (current) use of aspirin; Z79.84 Long term (current) use of oral hypoglycemic drugs; Z79.4 Long term (current) use of insulin; Z79.899 Other long term (current) drug therapy
CPT/HCPCS: 71046; 80048; 84484; 85025; 93005; 94640; 96372; 99285; J7030; A4216

== ENCOUNTER 2018-10-29 11:13 | Emergency (ER) | payer MEDICAID, SELFPAY ==
[2018-10-29 11:15] VITALS: BP 125/68; PULSE 88; RESP 17; TEMP 36.8; O2SAT 93; BMI 27.3
[2018-10-29] MEDS: 0.9% Normal Saline 1,000 ML 1000 ML IV (11:38)
[2018-10-29] MEDS: Ondansetron 4 MG/2 ML Vial IV (11:38)
[2018-10-29 11:48] LABS: Absolute Lymphocyte Count 1.29 X10^3/ul (0.83-4.51); Basophil# 0.08 X10^3/uL; Basophil% 1.6 % (0-1); Eosinophil# 0.25 X10^3/uL; Eosinophils% 4.9 % (0-5); Hemoglobin 15.6 g/dl (13.0-16.5); Lymphocyte # 1.29 X10^3/ul (4.0); Lymphocyte % 25.2 % (19-41); Mean Corp Hgb Conc 36.3 g/gl (32-36); Mean Corpuscular Hgb 29.1 pg (27.0-32.0); Mean Corpuscular Volume 80.1 fL (80-94); Mean Platelet Vol. 9.5 fl (6.2-12.0); Monocyte# 0.52 X10^3/uL; Monocyte% 10.2 % (0-10); Neutrophil # 2.96 X10^3/uL (2.7-7.7); Neutrophil % 57.9 % (47-70); Platelet Count 186 K/mm3 (150-450); RBC Distribution Width CV 13.1 % (11.6-14.6); RBC Distribution Width SD 38.2 fl (35.1-43.9); Red Blood Count 5.37 M/mm3 (4.6-6.2); White Blood Count 5.1 K/mm3 (4.4-11.0)
[2018-10-29 11:49] LABS: POSITIVE COUNT NO; POSITIVE DIFFERENTIAL NO; POSITIVE MORPHOLOGY NO
[2018-10-29 11:50] LABS: Bedside Glucose 296 mg/dL (70-110)
--- NOTE | 2018-10-29 11:50 | ED.VISSUMM ---
- ER Visit Summary Date of Service: 10/29/18 Chief Complaint: Weakness History of Present Illness: The patient is a 58 M presents to the emergency department generalized weakness. The patient is currently being treated for bronchitis. He is on prednisone and doxycycline. He states he feels like his sugars been running high. He states today, he was very lightheaded, has had increased thirst, and increased urination. He denies any fevers or chills. He denies any chest pain shortness of breath. He did not check his sugar prior to coming. He is otherwise been in his normal state of health. Physical Examination: Vital signs reviewed General: Well-nourished, well-developed Head: Normocephalic, atraumatic Eyes: Pupils equal and reactive, extraocular muscles intact Neck, supple, no lymphadenopathy Heart: Regular rate and rhythm Respiratory: No distress, clear bilaterally Abdomen: Soft, nontender, nondistended, no peritoneal signs Back: Nontender Extremities: Nontender, no edema, no cords Skin: Normal color no rash Neuro: Alert and oriented, no focal or lateralizing deficits Test Results: [] Emergency Department Course and Treatment: The patient presents with generalized weakness. His exam is very comforting. He has no focal neurologic symptoms. He has no focal complaints. His heart was regular. His lungs were clear. He did feel that this was secondary to his blood sugar. IV was established. Screening labs were obtained. He is mildly hyperglycemic, but he has a normal anion gap and normal bicarb. Fluids, symptoms were improved. I do feel that the patient is safe for outpatient therapy. Was counseled on concerning symptoms and reasons to return. The patient be discharged home. Treatment Plan: [] Disposition: Discharge Impression: 1. Generalized weakness 2. Hyperglycemia This note was generated with [employer] software. It may contain incorrect words, spelling, and punctuation that were not noted in review of the chart prior to signing ED Disposition - Plan for ED Patient: Chief Complaint: Weakness Instructions: ED Weakness [facility] Referrals: Sushant Fernandez MD [Primary Care Provider] -
[2018-10-29 12:13] LABS: ALB/GLOB Ratio 1.1 RATIO (0.9-2.4); AST(SGOT) 18 U/L (15-37); Alanine Aminotransfer ALT/SGPT 17 U/L (16-61); Albumin, Serum 3.8 g/dL (3.2-5.0); Alkaline Phosphatase 83 U/L (45-117); Anion Gap 8 (5-15); BUN 12 mg/dL (7-18); Chloride 101 mmol/L (98-107); EST Glomerular Filtration Rate 81 mL/min (>60); Est Glom Filt Rate - Afr Amer 99 mL/min (>60); Estimated Creatinine Clearance 101.48 ml/min; Globulin 3.4 g/dL (2.2-4.2); Glucose 291 mg/dL (74-106); Potassium 3.5 mmol/L (3.5-5.1); Protein, Total 7.2 g/dL (6.4-8.2); Sodium Level 137 mmol/L (136-145)
[2018-10-29 12:42] VITALS: BP 114/69; PULSE 64; RESP 16; O2SAT 93
== END 2018-10-29 12:43 | disposition home or self-care (01) ==
LOC: ED 11:51
PROVIDERS: Emergency Provider Emergency Medicine; Family Provider Family Medicine; PCP Family Medicine
DX: E11.65 Type 2 diabetes mellitus with hyperglycemia (principal); R53.1 Weakness; J40 Bronchitis, not specified as acute or chronic; Z79.4 Long term (current) use of insulin; Z79.82 Long term (current) use of aspirin; Z79.899 Other long term (current) drug therapy
CPT/HCPCS: 80053; 82962; 85025; 96361; 96374; 99283; J7030; A4216; J2405

== ENCOUNTER → 2019-03-23 14:09 | Outpatient (CLI) | payer MEDICAID, SELFPAY ==
[2019-03-23 16:30] LABS: CRP < 2.90 mg/L (0.0-3.0)
[2019-03-23 17:11] LABS: Absolute Lymphocyte Count 2.14 X10^3/ul (0.83-4.51); Absolute Neutrophil Count 4.7 X10^3/uL (2.0-7.7); Basophil# 0.03 X10^3/uL; Basophil% 0.4 % (0-1); Eosinophil# 0.17 X10^3/uL; Eosinophils% 2.3 % (0-5); Hematocrit 46.5 % (40-54); Hemoglobin 16.8 g/dl (13.0-16.5); Lymphocyte # 2.14 X10^3/ul (4.0); Lymphocyte % 28.4 % (19-41); Mean Corp Hgb Conc 36.1 g/gl (32-36); Mean Corpuscular Hgb 29.4 pg (27.0-32.0); Mean Corpuscular Volume 81.3 fL (80-94); Mean Platelet Vol. 9.6 fl (6.2-12.0); Monocyte# 0.45 X10^3/uL; Neutrophil # 4.74 X10^3/uL (2.7-7.7); Neutrophil % 62.8 % (47-70); Platelet Count 225 K/mm3 (150-450); RBC Distribution Width CV 13.5 % (11.6-14.6); RBC Distribution Width SD 40.1 fl (35.1-43.9); Red Blood Count 5.72 M/mm3 (4.6-6.2); White Blood Count 7.5 K/mm3 (4.4-11.0)
[2019-03-23 17:13] LABS: POSITIVE COUNT NO; POSITIVE DIFFERENTIAL NO; POSITIVE MORPHOLOGY NO
[2019-03-23 17:17] LABS: Erythrocyte Sedimentation Rate 2 mm/hr (0-20)
== END ==
PROVIDERS: Family Provider Family Medicine; PCP Family Medicine; Referring Provider Ophthalmology; Visit Provider Ophthalmology
DX: R51 Headache (principal)
CPT/HCPCS: 36415; 85025; 85652; 86140

== ENCOUNTER 2019-05-02 09:29 | Observation (INO) | payer MEDICAID, SELFPAY ==
[2019-05-02] VITALS (7 sets, daily range): BP systolic 123–140; BP diastolic 66–94; PULSE 63–89; RESP 16–20; TEMP 36.9–37; O2SAT 91–97; BMI 277.9; BMI 26.2
--- NOTE | 2019-05-02 09:57 | EKG12_ITS ---
Test Reason : CP Blood Pressure : / mmHG Vent. Rate : 079 BPM Atrial Rate : 079 BPM P-R Int : 168 ms QRS Dur : 094 ms QT Int : 398 ms P-R-T Axes : 061 -50 028 degrees QTc Int : 456 ms Normal sinus rhythm Left anterior fascicular block Abnormal ECG Confirmed by LUIS M RENEE ([id number]), mapping editor JADEN HERNANDEZ ([id number]) on 05/07/2019 12:58:44 PM Referred By: CARMELINA Confirmed By:LUIS M RENEE
--- NOTE | 2019-05-02 09:57 | RAD_ITS ---
STUDY: X-RAY CHEST REASON FOR EXAM: Male, 59 years old. Chest pain. TECHNIQUE: Single AP portable view of the chest. COMPARISON: Comparison is made with prior study dated October 27, 2018. FINDINGS: EKG electrodes are seen. There is elevation of the right hemidiaphragm. Increased markings are seen in the right middle lobe suggestive of right middle lobe infiltrate. There is no demonstrated pleural abnormality. Normal size heart. Normal mediastinum and marcie. Normal visualized pulmonary arteries. There is atherosclerotic tortuosity of the aortic arch and descending thoracic aorta. Normal visualized thoracic spine. Normal visualized ribs, clavicles, and shoulders. There is no demonstrated abnormality of the visualized soft tissue structures of the upper abdomen. RAD/Chest 1 View (Portable) IMPRESSION: Findings suggestive of a right middle lobe infiltrate Electronically Signed: Brent Gray, at 10:12 EDT , Service support ,
[2019-05-02] MEDS: Ondansetron 4 MG/2 ML Vial IV (10:12)
[2019-05-02] MEDS: Morphine 4 MG/ML Syringe IV (10:12)
[2019-05-02] MEDS: 0.9% Normal Saline 1,000 ML 150 ML IV ×2 (10:12→17:15)
[2019-05-02 10:36] LABS: AST(SGOT) 9 U/L (15-37); Alanine Aminotransfer ALT/SGPT 15 U/L (16-61); Albumin, Serum 4.3 g/dL (3.2-5.0); Alkaline Phosphatase 75 U/L (45-117); Anion Gap 10 (5-15); BUN 14 mg/dL (7-18); Bilirubin, Direct 0.17 mg/dL (0.00-0.30); Calcium,Total 9.7 mg/dL (8.5-10.1); Chloride 100 mmol/L (98-107); Creatinine, Serum 1.08 mg/dL (0.70-1.30); EST Glomerular Filtration Rate 74 mL/min (>60); Est Glom Filt Rate - Afr Amer 90 mL/min (>60); Estimated Creatinine Clearance 92.81 ml/min; Globulin 3.8 g/dL (2.2-4.2); Glucose 393 mg/dL (74-106); Lipase 936 U/L (73-393); Potassium 4.2 mmol/L (3.5-5.1); Protein, Total 8.1 g/dL (6.4-8.2); Sodium Level 139 mmol/L (136-145)
[2019-05-02 10:38] LABS: Basophil# 0.01 X10^3/uL; RBC Distribution Width CV 13.3 % (11.6-14.6)
[2019-05-02 10:41] LABS: Hemoglobin 16.6 g/dl (13.0-16.5); Red Blood Count 5.67 M/mm3 (4.6-6.2); White Blood Count 10.8 K/mm3 (4.4-11.0)
[2019-05-02 10:42] LABS: Hematocrit 45.8 % (40-54); Lymphocyte % 9.4 % (19-41); Mean Corp Hgb Conc 36.2 g/gl (32-36); Mean Corpuscular Hgb 29.3 pg (27.0-32.0); Mean Corpuscular Volume 80.8 fL (80-94); Mean Platelet Vol. 9.5 fl (6.2-12.0); Neutrophil % 83.4 % (47-70); POSITIVE COUNT NO; POSITIVE DIFFERENTIAL YES; POSITIVE MORPHOLOGY NO; Platelet Count 186 K/mm3 (150-450); RBC Distribution Width SD 38.8 fl (35.1-43.9)
[2019-05-02 10:43] LABS: Absolute Lymphocyte Count 1.01 X10^3/ul (0.83-4.51); Basophil% 0.1 % (0-1); Differential Indicated SCAN CRITERIA MET; Eosinophil# 0.24 X10^3/uL; Eosinophils% 2.2 % (0-5); Lymphocyte # 1.01 X10^3/ul (4.0); Monocyte# 0.51 X10^3/uL; Monocyte% 4.7 % (0-10)
--- NOTE | 2019-05-02 11:25 | ED.DCSUM_ITS ---
- ER Visit Summary Date of Service: 05/02/19 Chief Complaint: Nausea, vomiting, diarrhea History of Present Illness: The patient is a 59 M who awoke this morning with nausea, vomiting, and diarrhea. He states he developed chest pain after arriving to the ER. He states he ate at red [employer]ster last night. Food seems to settle okay but woke this morning and vomited up what he had eaten last night. Patient is a diabetic but did not check his blood sugar this morning. He is also had prior WI and has cardiac stents. Physical Examination: Vital signs are unremarkable. O2 sats are in the low to mid 90s. Patient sitting upright in bed no acute distress. Heart is regular rate and rhythm. Lung sounds are clear. Abdomen is soft with no focal tenderness. Hypoactive bowel sounds are noted. Test Results: EKG is sinus at 79 with no acute ischemia. Normal chest x-ray as well as questionable right middle lobe infiltrate. CBC was normal white count with hemoglobin concentrated at 16.6. 83% neutrophils noted. Chemistry studies reveal glucose of 393. LFTs are unremarkable lipase is 936. Troponin is less than 0.015. Emergency Department Course and Treatment: Patient is given morphine, Zofran, and IV fluids. On repeat evaluation he is sleeping comfortably easily awakens. I discussed this test results with him. Patient has had no cough, fever, or white count. I do not appreciate a significant infiltrate on his x-ray. I will speak with hospitalist but think at this time that we can watch his symptoms as I do not see definite signs of pneumonia. Treatment Plan: [] Disposition: Admit Impression: Pancreatitis This note was generated with [employer] dictation software. It may contain incorrect words, spelling, and punctuation that were not noted in review of the chart prior to signing ED Disposition - Plan for ED Patient: Referrals: Sushant Fernandez MD [Primary Care Provider] -
--- NOTE | 2019-05-02 11:47 | CASEMGMT ---
RN CM Assessment Introduced role of RN CM to patient.? Patient is alert, oriented and able?to participate in RN CM Assessment. ?Care providers, pharmacy, and demographics verified. Presentation: N/V/D started this morning. CP after arriving to ER. H/o Diabetes, Past NC with stents. Admit Dx: Per ER Impression- Pancreatitis Re-Admit: No Barriers/Issues: None. Denies smoking, states former ETOH but denies current use. PCP: Raphael Fernandez Specialists: None Preferred Pharmacy: [facility]. States Main Medications at [place]. Insurance: [employer] Rx Benefit: Yes? LNOK: Friend Fady Barney LW/HPOA: None, Declines offered information. Living Arrangements:?Lives alone in ground level apartment. 1 small step to enter. ADL?s: Independent with ambulation and ADLs Transportation: [id number] Stevan- Possible same on DC or plans to take Hospital [facility] DME: [employer] HHC: None SNF: None Goal: Home and does not think will have any needs. Denies questions/concerns. Aware CM remains available for any emerging needs. DC PLAN: Home with no anticipated needs identified at this time. DEA Barahona
--- NOTE | 2019-05-02 12:39 | HP.PCM_ITS ---
Problem List (1) Coronary atherosclerosis of [place] coronary artery Status: Chronic (2) DM (diabetes mellitus) Status: Chronic (3) Essential hypertension Status: Chronic (4) Hyperosmolar (nonketotic) coma Status: Chronic (5) Hypothyroidism Status: Chronic (6) Old myocardial infarction Status: Chronic (7) Abdominal pain Status: Acute (8) Pancreatitis Status: Acute History of Present Illness Date of Admission: 05/02/19 Chief Complaint: Abdominal pain The patient is a 59 year old M gentleman with past medical history significant for diabetes mellitus type 2 who presents with abdominal pain. Patient states symptoms started a day prior to coming in. Abdominal pain was described as generalized noncolicky pain the patient in addition did complain of nausea and vomiting in addition to diarrhea. In view of the progressive nature of the symptoms he presented to the emergency department. An assessment of acute pancreatitis was made admitted to regular nursing floor for further management Past Medical History Past Medical History (Chronic Problems): Chronic Problems DM (diabetes mellitus) (Chronic) Coronary atherosclerosis of [place] coronary artery (Chronic) Essential hypertension (Chronic) Hypothyroidism (Chronic) Old myocardial infarction (Chronic) Hyperosmolar (nonketotic) coma (Chronic) Allergies diphenhydramine HCl [From Benadryl] Allergy (Verified 05/02/19 09:32) Rash Penicillins Allergy (Verified 05/02/19 09:32) Rash venom-honey bee [bee venom (honey bee)] Allergy (Verified 05/02/19 09:32) Swelling Home Medications: Ambulatory Orders Medication Instructions Recorded Atorvastatin Calcium [Lipitor] 40 mg PO QHS 08/16/13 Levothyroxine [Synthroid] 100 mcg PO MOTUWETHFRSA 08/16/13 Lisinopril [Zestril] 20 mg PO DAILY 08/16/13 Aspirin E.C. [Ecotrin] 81 mg PO DAILY@0800 11/11/13 Omeprazole [Prilosec] 20 mg PO DAILY 11/11/13 Canagliflozin [Invokana] 100 mg PO DAILY 12/12/14 Levothyroxine [Synthroid] 200 mcg PO GARCIA 03/06/17 Albuterol Inhaler [Ventolin Hfa] 1 - 2 puff INHALATION Q4H PRN PRN 05/17/17 #1 inhaler Benzonatate [Tessalon Perle] 100 mg PO TID PRN PRN #20 cap 10/27/18 Guaifenesin Dm [Robitussin Dm] 10 ml PO Q6H PRN PRN #100 ml 10/27/18 Ibuprofen [Motrin] 800 mg PO TID PRN PRN #20 tab 10/27/18 Alogliptin Benzoate [Nesina] 25 mg PO DAILY 05/02/19 Insulin Glargine [Lantus SoloStar 84 units SUBCUT DAILY 05/02/19 Pen] Prednisone [Deltasone] 20 mg PO BID 05/02/19 metFORMIN (XR) [Glucophage Xr] 1,000 mg PO BIDCM 05/02/19 Surgical History: herniorrhaphy, total knee arthroplasty Smoking Status: Never smoker - *Family History Paternal History Items: Pulmonary Disease - Father from emphysema Maternal History Items: Unknown Review of Systems Constitutional: Reports: Anorexia, Malaise Cardiovascular: Denies: Chest Pain, Orthopnea, Palpitations, Paroxysmal Noc. Dyspnea Gastrointestinal: Reports: Abdominal Pain, Diarrhea, Nausea, Vomiting Genitourinary: Denies: Dysuria, Frequency, Hematuria, Urgency Musculoskeletal: Denies: Joint Pain, Joint Tenderness Skin: Denies: Rash Neurological: Denies: Focal weakness, Numbness, Tingling Psychiatric: Denies: Homicidal Ideations, Suicidal Ideations Hematologic/ Lymphatic: Denies: Easy Bruising, Easy Bleeding VTE Information - Inpt Only VTE Present on Admission: No VTE Mechan Device Prophylaxis: None VTE Pharm Prophylaxis ordered?: Yes Patient Problems: Active and Suspected Problems Abdominal pain (Acute) Pancreatitis (Acute) Objective: GENERAL: cooperative HEENT: Atraumatic; EYES; Anicteric, Normal Conjunctiva NECK; supple, normal thyroid, RESPIRATORY: Diminished to auscultation CARDIOVASCULAR: Regular S1 S2, GI: soft, tender, normoactive bowel sounds, : No Renal angle tenderness; EXTREMITIES: No edema, no clubbing, MUSCULOSKELETAL: No Joint Tenderness; NEURO: Awake; no lateralizing signs. SKIN: No Rash PSYCH; flat affect - Physical Exam Vital Signs Temp Pulse Resp BP Pulse Ox 98.6 F 80 19 H 128/88 H 92 05/02/19 09:30 05/02/19 11:56 05/02/19 11:56 05/02/19 11:56 05/02/19 11:56 Oxygen Delivery Method Room Air Weight: 1063.221 kg Body Mass Index (BMI) 277.9 Finger Stick Blood Glucose 296 Laboratory Tests Past 24 Hrs 05/02/19 05/02/19 10:10 10:10 WBC 10.8 RBC 5.67 Hgb 16.6 H Hct 45.8 MCV 80.8 MCH 29.3 MCHC 36.2 H RDW 13.3 RDW Differential 38.8 Plt Count 186 MPV 9.5 Immature Gran % (Auto) 0.200 Neut % (Auto) 83.4 H Lymph % (Auto) 9.4 L [place] % (Auto) 4.7 Eos % (Auto) 2.2 Baso % (Auto) 0.1 Absolute Neuts (auto) 9.0 H Absolute Lymphs (auto) 1.01 Total Counted Not Reportable Differential Comment COMMENT Sodium 139 Potassium 4.2 Chloride 100 Carbon Dioxide 29.0 Anion Gap 10 BUN 14 Creatinine 1.08 Estim Creat Clear Calc 92.81 Est GFR (MDRD) Af Amer 90 Est GFR (MDRD) Non-Af 74 BUN/Creatinine Ratio 13.0 Glucose 393 H Calcium 9.7 Total Bilirubin 0.80 Direct Bilirubin 0.17 AST 9 L ALT 15 L Alkaline Phosphatase 75 Troponin I < 0.015 Total Protein 8.1 Albumin 4.3 Globulin 3.8 Lipase 936 H Assessment/Plan All Active Problems Abdominal pain (Acute) Pancreatitis (Acute) Chest pain (Resolved) TARYN (acute kidney injury) (Resolved) Dizziness (Resolved) Acute electrocardiogram changes (Resolved) She is a 59-year-old gentleman presented with intractable nausea vomiting and diarrhea with associated abdominal pain diagnosis of acute bronchitis made admitted to regular nursing floor for further management 1. Acute pancreatitis suspected to be secondary to patient's diabetes medication including alogliptin as well as Invokana. Patient denies any previous history of gallstone denies alcohol use. The suspected offending medications held patient has been admitted to regular nursing floor for subsequent management with bowel rest, IV fluids as well as pain meds. 2. Diabetes mellitus type 2 held patient Invokana as well as alogliptin in addition to his long-acting insulin since he was kept n.p.o. Did however order Accu-Cheks before meals and at bedtime with sliding scale coverage 3. Dyslipidemia patient is on atorvastatin 4. Hypertension-blood pressure controlled, home medications continued with dose adjustment as needed 5. Hypothyroidism-patient is on levothyroxine home dose continued 6. Coronary artery disease with previous [place] and subsequent PCI with stent 7. DVT prophylaxis SC Lovenox Clinical Impression(s) from Imaging Studies Chest X-Ray 05/02/19 09:57 IMPRESSION: Findings suggestive of a right middle lobe infiltrate Electronically Signed: Brent Gray, at 10:12 EDT , Service support , Code Visit Inpatient E&M: 34394 Init Hosp L3
[2019-05-02] MEDS: predniSONE 20 MG Tablet PO (17:14)
[2019-05-02] MEDS: Insulin Lispro 100 UNIT/ML INSULN.PEN SC (17:15)
[2019-05-02 17:46] LABS: Bedside Glucose 273 mg/dL (70-110)
[2019-05-02] MEDS: Atorvastatin Calcium 40 MG Tablet PO (21:22)
[2019-05-03] MEDS: Insulin Lispro 100 UNIT/ML INSULN.PEN SC ×2 (00:34→05:57)
[2019-05-03] MEDS: 0.9% Normal Saline 1,000 ML 150 ML IV ×2 (00:35→07:51)
[2019-05-03 01:30] VITALS: BP 111/70; PULSE 60; RESP 16; TEMP 36.6; O2SAT 95
[2019-05-03 04:01] LABS: Bedside Glucose 310 mg/dL (70-110)
[2019-05-03] MEDS: Levothyroxine 100 MCG Tablet PO (05:58)
[2019-05-03 06:36] LABS: Bedside Glucose 230 mg/dL (70-110)
[2019-05-03 07:12] LABS: Absolute Lymphocyte Count 1.55 X10^3/ul (0.83-4.51); Absolute Neutrophil Count 6.9 X10^3/uL (2.0-7.7); Basophil# 0.01 X10^3/uL; Basophil% 0.1 % (0-1); Eosinophil# 0.22 X10^3/uL; Eosinophils% 2.4 % (0-5); Hemoglobin 14.9 g/dl (13.0-16.5); Lymphocyte # 1.55 X10^3/ul (4.0); Mean Corp Hgb Conc 35.5 g/gl (32-36); Mean Corpuscular Volume 81.9 fL (80-94); Mean Platelet Vol. 9.7 fl (6.2-12.0); Monocyte# 0.37 X10^3/uL; Monocyte% 4.1 % (0-10); Neutrophil # 6.93 X10^3/uL (2.7-7.7); Neutrophil % 76.2 % (47-70); Platelet Count 192 K/mm3 (150-450); RBC Distribution Width CV 13.2 % (11.6-14.6); RBC Distribution Width SD 39.5 fl (35.1-43.9); Red Blood Count 5.13 M/mm3 (4.6-6.2); White Blood Count 9.1 K/mm3 (4.4-11.0)
[2019-05-03 07:26] LABS: POSITIVE COUNT NO; POSITIVE DIFFERENTIAL NO; POSITIVE MORPHOLOGY NO
[2019-05-03 07:43] LABS: BUN 15 mg/dL (7-18); Creatinine, Serum 0.84 mg/dL (0.70-1.30); Estimated Creatinine Clearance 119.33 ml/min; Glucose 247 mg/dL (74-106)
[2019-05-03 07:44] LABS: AST(SGOT) 8 U/L (15-37); Alanine Aminotransfer ALT/SGPT 13 U/L (16-61); Albumin, Serum 3.5 g/dL (3.2-5.0); Alkaline Phosphatase 70 U/L (45-117); Anion Gap 8 (5-15); BUN/Creat Ratio 17.9 RATIO (10-20); Bilirubin, Direct 0.17 mg/dL (0.00-0.30); Calcium,Total 8.8 mg/dL (8.5-10.1); Chloride 107 mmol/L (98-107); EST Glomerular Filtration Rate 100 mL/min (>60); Est Glom Filt Rate - Afr Amer 121 mL/min (>60); Globulin 3.3 g/dL (2.2-4.2); Lipase 74 U/L (73-393); Magnesium 1.4 mg/dL (1.6-2.6); Potassium 3.8 mmol/L (3.5-5.1); Protein, Total 6.8 g/dL (6.4-8.2); Sodium Level 141 mmol/L (136-145)
[2019-05-03] MEDS: Pantoprazole Sodium 20 MG Tablet PO (07:51)
[2019-05-03] MEDS: Lisinopril 20 MG Tablet PO (07:51)
[2019-05-03] MEDS: Aspirin E.C. 81 MG Tablet PO (07:51)
[2019-05-03] MEDS: predniSONE 20 MG Tablet PO (07:51)
[2019-05-03] MEDS: Enoxaparin 40 MG/0.4 ML Syringe SC (07:52)
[2019-05-03 07:59] VITALS: BP 124/87; PULSE 65; RESP 14; TEMP 36.9; O2SAT 97
[2019-05-03 08:45] VITALS: O2SAT 97
--- NOTE | 2019-05-03 09:00 | DCINST_ITS ---
- Discharge Diagnoses Current Active Problems: Current Active and Chronic Problems Abdominal pain (Acute) Pancreatitis (Acute) You will use the following diet at home:: Calorie/Carbohydrate Controlled (specify 1200, 1400, etc) - 1800 Your food should be the consistency of: Regular Discharge Activity: Return to Normal Activity Allergies/Adverse Reactions: Allergies diphenhydramine HCl [From Benadryl] Allergy (Verified 05/02/19 09:32) Rash Penicillins Allergy (Verified 05/02/19 09:32) Rash venom-honey bee [bee venom (honey bee)] Allergy (Verified 05/02/19 09:32) Swelling Medications to take at Discharge Atorvastatin Calcium [Lipitor] 40 mg PO QHS 08/16/13 Levothyroxine [Synthroid] 100 mcg PO MOTUWETHFRSA 08/16/13 Lisinopril [Zestril] 20 mg PO DAILY 08/16/13 Aspirin E.C. [Ecotrin] 81 mg PO DAILY@0800 11/11/13 Omeprazole [Prilosec] 20 mg PO DAILY 11/11/13 Levothyroxine [Synthroid] 200 mcg PO GARCIA 03/06/17 Albuterol Inhaler [Ventolin Hfa] 1 - 2 puff INHALATION Q4H PRN PRN #1 inhaler 05/17/17 Benzonatate [Tessalon Perle] 100 mg PO TID PRN PRN #20 cap 10/27/18 Guaifenesin Dm [Robitussin Dm] 10 ml PO Q6H PRN PRN #100 ml 10/27/18 Ibuprofen [Motrin] 800 mg PO TID PRN PRN #20 tab 10/27/18 Insulin Glargine [Lantus SoloStar Pen] 84 units SUBCUT DAILY 05/02/19 Prednisone [Deltasone] 20 mg PO BID 05/02/19 metFORMIN (XR) [Glucophage Xr] 1,000 mg PO BIDCM 05/02/19 Primary Care Physician: Sushant Fernandez MD [Primary Care Provider] - Please follow up with your Primary Care Physician in: in 5-7days Test Results: Test results from this visit will be discussed in further detail at your follow- up appointment, if applicable. Proposed Discharge Date: 05/03/19
--- NOTE | 2019-05-03 09:02 | DS.PCM_ITS ---
Discharge Date and Diagnosis - Problem List Patient Problems: Active and Suspected Problems Abdominal pain (Acute) Pancreatitis (Acute) Date of Admission: 05/02/19 Date of Discharge: 05/03/19 - Primary Discharge Diagnosis Active and Suspected Problems Abdominal pain (Acute) Pancreatitis (Acute) - Secondary Discharge Diagnosis Chronic Problems DM (diabetes mellitus) (Chronic) Coronary atherosclerosis of [place] coronary artery (Chronic) Essential hypertension (Chronic) Hypothyroidism (Chronic) Old myocardial infarction (Chronic) Hyperosmolar (nonketotic) coma (Chronic) Hospital Course and Treatment Operations: None Summary of Care Provided: The patient is a 59 year old M presented with intractable nausea vomiting and diarrhea with associated abdominal pain diagnosis of acute bronchitis made admitted to regular nursing floor for further management 1. Acute pancreatitis suspected to be secondary to patient's diabetes medication including alogliptin as well as Invokana. Patient denies any previous history of gallstone denies alcohol use. The suspected offending medications held patient has been admitted to regular nursing floor for subsequent management with bowel rest, IV fluids as well as pain meds.. Patient was expected to stay at least 2 midnight however his condition did improve remarkably overnight. Was started on regular diet which he tolerated subsequently discharged home. Patient was instructed not to take the alogliptin as well as Invokana but to follow-up with PCP prior to initiation if needed 2. Diabetes mellitus type 2 held patient Invokana as well as alogliptin in addition to his long-acting insulin since he was kept n.p.o. Did however order Accu-Cheks before meals and at bedtime with sliding scale coverage. Did resume patient insulin once he was placed on a regular diet. As stated above his Invokana and alogliptin were discontinued on discharge 3. Dyslipidemia patient is on atorvastatin 4. Hypertension-blood pressure controlled, home medications continued with dose adjustment as needed 5. Hypothyroidism-patient is on levothyroxine home dose continued 6. Coronary artery disease with previous [place] and subsequent PCI with stent 7. DVT prophylaxis SC Lovenox Patient Problems: Active and Suspected Problems Abdominal pain (Acute) Pancreatitis (Acute) Objective: GENERAL: cooperative HEENT: Atraumatic; EYES; Anicteric, Normal Conjunctiva NECK; supple, normal thyroid, RESPIRATORY: Diminished to auscultation CARDIOVASCULAR: Regular S1 S2, EXTREMITIES: No edema, no clubbing, MUSCULOSKELETAL: No Joint Tenderness; NEURO: Awake; no lateralizing signs. SKIN: No Rash PSYCH; flat affect - Physical Exam Vital Signs Temp Pulse Resp BP Pulse Ox 98.4 F 65 14 124/87 H 97 05/03/19 07:59 05/03/19 07:59 05/03/19 07:59 05/03/19 07:59 05/03/19 07:59 Oxygen Delivery Method Room Air Weight: 100.3 kg Body Mass Index (BMI) 26.2 Finger Stick Blood Glucose 296 Intake and Output for Last 24 Hours 05/01/19 05/02/19 05/03/19 23:59 23:59 23:59 Intake Total 809 / 1618 1557 / 1557 Balance 809 / 1618 1557 / 1557 Laboratory Tests Past 24 Hrs 05/02/19 05/02/19 05/03/19 10:10 10:10 05:30 WBC 10.8 9.1 RBC 5.67 5.13 Hgb 16.6 H 14.9 Hct 45.8 42.0 MCV 80.8 81.9 MCH 29.3 29.0 MCHC 36.2 H 35.5 RDW 13.3 13.2 RDW Differential 38.8 39.5 Plt Count 186 192 MPV 9.5 9.7 Immature Gran % (Auto) 0.200 0.200 Neut % (Auto) 83.4 H 76.2 H Lymph % (Auto) 9.4 L 17.0 L [place] % (Auto) 4.7 4.1 Eos % (Auto) 2.2 2.4 Baso % (Auto) 0.1 0.1 Absolute Neuts (auto) 9.0 H 6.9 Absolute Lymphs (auto) 1.01 1.55 Total Counted Not Reportable Not Reportable Differential Comment COMMENT Sodium 139 Potassium 4.2 Chloride 100 Carbon Dioxide 29.0 Anion Gap 10 BUN 14 Creatinine 1.08 Estim Creat Clear Calc 92.81 Est GFR (MDRD) Af Amer 90 Est GFR (MDRD) Non-Af 74 BUN/Creatinine Ratio 13.0 Glucose 393 H Calcium 9.7 Magnesium Total Bilirubin 0.80 Direct Bilirubin 0.17 AST 9 L ALT 15 L Alkaline Phosphatase 75 Troponin I < 0.015 Total Protein 8.1 Albumin 4.3 Globulin 3.8 Lipase 936 H 05/03/19 05:30 WBC RBC Hgb Hct MCV MCH MCHC RDW RDW Differential Plt Count MPV Immature Gran % (Auto) Neut % (Auto) Lymph % (Auto) [place] % (Auto) Eos % (Auto) Baso % (Auto) Absolute Neuts (auto) Absolute Lymphs (auto) Total Counted Differential Comment Sodium 141 Potassium 3.8 Chloride 107 Carbon Dioxide 26.0 Anion Gap 8 BUN 15 Creatinine 0.84 Estim Creat Clear Calc 119.33 Est GFR (MDRD) Af Amer 121 Est GFR (MDRD) Non-Af 100 BUN/Creatinine Ratio 17.9 Glucose 247 H Calcium 8.8 Magnesium 1.4 L Total Bilirubin 0.90 Direct Bilirubin 0.17 AST 8 L ALT 13 L Alkaline Phosphatase 70 Troponin I Total Protein 6.8 Albumin 3.5 Globulin 3.3 Lipase 74 POC Glucose 05/03/19 05/03/19 05/02/19 05:56 00:31 17:02 POC Glucose 230 H 310 H 273 H Discharge Diet: 1800 Calorie Control Diet Discharge Activity: Return to Normal Activity Home Medications: Medications to take at Discharge Atorvastatin Calcium [Lipitor] 40 mg PO QHS 08/16/13 Levothyroxine [Synthroid] 100 mcg PO MOTUWETHFRSA 08/16/13 Lisinopril [Zestril] 20 mg PO DAILY 08/16/13 Aspirin E.C. [Ecotrin] 81 mg PO DAILY@0800 11/11/13 Omeprazole [Prilosec] 20 mg PO DAILY 11/11/13 Levothyroxine [Synthroid] 200 mcg PO GARCIA 03/06/17 Albuterol Inhaler [Ventolin Hfa] 1 - 2 puff INHALATION Q4H PRN PRN #1 inhaler 05/17/17 Benzonatate [Tessalon Perle] 100 mg PO TID PRN PRN #20 cap 10/27/18 Guaifenesin Dm [Robitussin Dm] 10 ml PO Q6H PRN PRN #100 ml 10/27/18 Ibuprofen [Motrin] 800 mg PO TID PRN PRN #20 tab 10/27/18 Insulin Glargine [Lantus SoloStar Pen] 84 units SUBCUT DAILY 05/02/19 Prednisone [Deltasone] 20 mg PO BID 05/02/19 metFORMIN (XR) [Glucophage Xr] 1,000 mg PO BIDCM 05/02/19 Primary Care Physician: Sushant Fernandez MD [Primary Care Provider] - Please follow up with your Primary Care Physician in: in 5-7days Disposition: Home Minutes spent on discharge:: 32 Patient Condition:: Stable Medical Necessity - Tobacco Use Smoking Status: Never smoker Meaningful Use Info Meaningful Use Diagnoses (Choose all that apply): None applicable Code Visit Inpatient E&M: 43806 Disch Hosp
[2019-05-03 10:57] VITALS: BP 114/70; PULSE 75; RESP 16; TEMP 36.8; O2SAT 96
--- NOTE | 2019-05-04 15:49 | CASEMGMT ---
Case Management DC Follow up call: DC Date: 05/03/19 DC Diagnosis: Abd Pain, Pancreatitis DC Disposition: Home LACE/STRATA: 07/03 Attempt to call patient listed Cell phone on demographics, no answer, VM unable to authenticate correct patient and therefore no VM left. Elgin De La Torre RNCM
== END 2019-05-03 11:10 | disposition home or self-care (01) ==
LOC: ED 12:17 → MS3 12:54
PROVIDERS: Admitting Provider Internal Medicine; Emergency Provider Emergency Medicine; Family Provider Family Medicine; PCP Family Medicine; Visit Provider Internal Medicine
DX: K85.90 Acute pancreatitis without necrosis or infection, unspecified (principal); E11.9 Type 2 diabetes mellitus without complications; I25.10 Atherosclerotic heart disease of native coronary artery without angina pectoris; I10 Essential (primary) hypertension; E03.9 Hypothyroidism, unspecified; Z79.82 Long term (current) use of aspirin; Z79.899 Other long term (current) drug therapy; Z79.4 Long term (current) use of insulin; I25.2 Old myocardial infarction; Z95.5 Presence of coronary angioplasty implant and graft; E78.5 Hyperlipidemia, unspecified
CPT/HCPCS: 36415; 71045; 80048; 80076; 82962; 83690; 83735; 84484; 85025; 93005; 96361; 96372; 96374; 96375; 97802; 99218; 99251; 99285; J7030; A4216; G0378; G0463; J2405

== ENCOUNTER 2019-05-11 04:54 | Observation (INO) | payer MEDICAID, SELFPAY ==
[2019-05-02 13:18] VITALS: BMI 26.2
[2019-05-11] VITALS (18 sets, daily range): BP systolic 92–146; BP diastolic 55–100; PULSE 60–85; RESP 15–24; TEMP 36.3–37.1; O2SAT 91–98; BMI 28.0; BMI 27.2; BMI 27.3
--- NOTE | 2019-05-11 05:08 | RAD_ITS ---
HISTORY: CPChest PainRAD - Chest EXAM: XR Chest 1 View: COMPARISON: May 02, 2019 FINDINGS: # of images incl. 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 Bones are normal. Pulmonary vascularity is distinct. No effusions. RAD/Chest 1 View (Portable) IMPRESSION: No acute cardiopulmonary disease. at 1131 Reported and signed by: Carlos Ordonez MD Electronically Signed: Carlos Ordonez MD at 5:40 EDT Tel , Service support ,
--- NOTE | 2019-05-11 05:08 | EKG12_ITS ---
Test Reason : CP Blood Pressure : / mmHG Vent. Rate : 078 BPM Atrial Rate : 078 BPM P-R Int : 164 ms QRS Dur : 096 ms QT Int : 402 ms P-R-T Axes : 048 -46 -25 degrees QTc Int : 458 ms Normal sinus rhythm Incomplete right bundle branch block Left anterior fascicular block Nonspecific ST and T wave abnormality Abnormal ECG Confirmed by MENDY ZARATE MD ([id number]), clinical editor MARCIANO PACE ([id number]) on 05/11/2019 12:21:20 PM Referred By: YUMIKO Confirmed By:MENDY ZARATE MD
--- NOTE | 2019-05-11 05:09 | ED.VIS.GEN ---
History of Present Illness Chief Complaint: Chest Pain Informant: Patient Onset: Today Timing: Waxes and wanes Current Severity: Mild Maximum Severity: Moderate Narrative: Patient presents with approximately 1-1/2 hours of chest pain as well as mild headache. Patient was admitted in the hospital last week for pancreatitis. He states he had some intermittent chest pain around that time but over the last several days had felt well. He denies burning in his throat or reflux symptoms. He does have history of cardiac disease with stent. His last stress test was 2 years ago. - Past Medical History (1) Pancreatitis Status: Acute (2) Coronary atherosclerosis of [place] coronary artery Status: Chronic (3) DM (diabetes mellitus) Status: Chronic (4) Essential hypertension Status: Chronic (5) Hypothyroidism Status: Chronic Past Medical History - Allergies and Home Meds Allergies/Adverse Reactions: Allergies diphenhydramine HCl [From Benadryl] Allergy (Verified 05/11/19 05:02) Rash Penicillins Allergy (Verified 05/11/19 05:02) Rash venom-honey bee [bee venom (honey bee)] Allergy (Verified 05/11/19 05:02) Swelling Primary Care Physician: Sushant Fernandez MD [Primary Care Provider] - Prior records reviewed: Yes Past Medical History: - - Reviewed Surgical History: herniorrhaphy, total knee arthroplasty Smoking Status: Never smoker - Family History Paternal Family History: Reports: Pulmonary Disease - Father from emphysema Additional Family History: No heart disease Maternal Family History: Reports: Unknown Review of Systems General: Denies: Chills, Fever Cardiovascular: Reports: Chest pain. Denies: Palpitations, Heart racing Respiratory: Reports: Dyspnea. Denies: Cough, Sputum Gastrointestinal: Denies: Abdominal pain, Nausea, Vomiting Neurological: Reports: Headache Physical Exam Vital Signs/Narrative: Vital Signs Temp Pulse Resp BP Pulse Ox 05/11/19 05:06 93 05/11/19 04:55 98.8 F 85 24 H 134/100 H 91 General: Well nourished, Well developed ENT: Moist mucous membranes Cardiovascular: Regular rate, Regular rhythm Respiratory: No distress, CTA bilaterally Abdomen: Soft, Nontender Back: Nontender Extremities: Nontender Skin: Normal color, No rash Neurological: Alert, Oriented x3 Psychological: Normal affect Diagnostic/Tx/Re-eval Impressions Chest X-Ray 05/11/19 05:08 IMPRESSION: No acute cardiopulmonary disease. at 0541 Reported and signed by: Carlos Ordonez MD Electronically Signed: Carlos Ordonez MD at 5:40 EDT Tel , Service support , 05/11/19 05:08 Chest 1 View (Portable) [RAD] Stat Laboratory Results 05/11/19 05/11/19 05:05 05:05 WBC 7.6 RBC 5.43 Hgb 15.3 Hct 42.1 MCV 77.5 L MCH 28.2 MCHC 36.3 H RDW 13.4 RDW Differential 37.2 Plt Count 217 MPV 9.3 Immature Gran % (Auto) 0.300 Neut % (Auto) 59.8 Lymph % (Auto) 28.9 [place] % (Auto) 6.4 Eos % (Auto) 4.1 Baso % (Auto) 0.5 Absolute Neuts (auto) 4.5 Absolute Lymphs (auto) 2.18 Total Counted Not Reportable Sodium 138 Potassium 3.7 Chloride 101 Carbon Dioxide 28.0 Anion Gap 9 BUN 15 Creatinine 1.02 Estim Creat Clear Calc 98.27 Est GFR (MDRD) Af Amer 96 Est GFR (MDRD) Non-Af 79 BUN/Creatinine Ratio 14.7 Glucose 508 H* Calcium 9.0 Troponin I < 0.015 - EKG Initial EKG Interpretation: Sinus Rhythm, - - Normal sinus rhythm with nonspecific ST-T wave changes in the lateral leads. This is not significantly changed when compared to prior study of May 02, 2018. - Medical Decision Making Patient presents with less than 2 hours of chest pain. He does have known history of cardiac disease with cardiac stent. He has not had stress test in the last 2 years. Signs are negative at this time. I will speak with hospitalist regarding cycling of enzymes and possible stress test. Patient's blood sugar is elevated at 508. With his recent admission his diabetes medications were changed for discharge. He will be given insulin at this time. ED Disposition - Plan for ED Patient: Disposition: Home or Assisted Living Diagnosis: Chest pain Referrals: Sushant Fernandez MD [Primary Care Provider] -
[2019-05-11] MEDS: Ondansetron 4 MG/2 ML Vial IV ×2 (05:14→16:15)
[2019-05-11] MEDS: 0.9% Normal Saline 1,000 ML 150 ML IV ×3 (05:14→15:22)
[2019-05-11] MEDS: Morphine 4 MG/ML Syringe IV (05:14)
[2019-05-11 05:19] LABS: Absolute Lymphocyte Count 2.18 X10^3/ul (0.83-4.51); Absolute Neutrophil Count 4.5 X10^3/uL (2.0-7.7); Basophil# 0.04 X10^3/uL; Basophil% 0.5 % (0-1); Eosinophil# 0.31 X10^3/uL; Eosinophils% 4.1 % (0-5); Hematocrit 42.1 % (40-54); Hemoglobin 15.3 g/dl (13.0-16.5); Lymphocyte # 2.18 X10^3/ul (4.0); Lymphocyte % 28.9 % (19-41); Mean Corp Hgb Conc 36.3 g/gl (32-36); Mean Corpuscular Hgb 28.2 pg (27.0-32.0); Mean Corpuscular Volume 77.5 fL (80-94); Mean Platelet Vol. 9.3 fl (6.2-12.0); Monocyte# 0.48 X10^3/uL; Monocyte% 6.4 % (0-10); Neutrophil # 4.52 X10^3/uL (2.7-7.7); Neutrophil % 59.8 % (47-70); Platelet Count 217 K/mm3 (150-450); RBC Distribution Width CV 13.4 % (11.6-14.6); RBC Distribution Width SD 37.2 fl (35.1-43.9); Red Blood Count 5.43 M/mm3 (4.6-6.2); White Blood Count 7.6 K/mm3 (4.4-11.0)
[2019-05-11 05:21] LABS: POSITIVE COUNT NO; POSITIVE DIFFERENTIAL NO; POSITIVE MORPHOLOGY NO
[2019-05-11 05:40] LABS: Anion Gap 9 (5-15); BUN 15 mg/dL (7-18); BUN/Creat Ratio 14.7 RATIO (10-20); Chloride 101 mmol/L (98-107); Creatinine, Serum 1.02 mg/dL (0.70-1.30); EST Glomerular Filtration Rate 79 mL/min (>60); Est Glom Filt Rate - Afr Amer 96 mL/min (>60); Estimated Creatinine Clearance 98.27 ml/min; Glucose 508 mg/dL (74-106); Potassium 3.7 mmol/L (3.5-5.1); Sodium Level 138 mmol/L (136-145)
--- NOTE | 2019-05-11 05:41 | ED.RN ---
DR CALDERON NOTIFIED OF GLUCOSE RESULTS
[2019-05-11] MEDS: Insulin Lispro 100 UNIT/ML INSULN.PEN 12 UNIT SC (05:57)
--- NOTE | 2019-05-11 06:15 | PCM.HP.STD ---
Problem List (1) Chest pain Status: Acute Qualifiers: Chest pain type: unspecified Qualified Code(s): R07.9 - Chest pain, unspecified (2) DM (diabetes mellitus) Status: Chronic Qualifiers: Diabetes mellitus type: type 2 Diabetes mellitus complication status: without complication (3) TARYN (acute kidney injury) Status: Resolved (4) Essential hypertension Status: Chronic (5) Hypothyroidism Status: Chronic Qualifiers: Hypothyroidism type: unspecified Qualified Code(s): E03.9 - Hypothyroidism, unspecified History of Present Illness Date of Admission: 05/11/19 Chief Complaint: Chest pain - 1 day The patient is a 59 year old M with type II DM, hypertension, hypothyroidism, hyperlipidemia who was discharged on 05/03/19 after admission with acute pancreatitis believed to be secondary to his diabetes medications. Says he was in his usual state of health until this morning when he complained of chest pain that felt like a heart attack he had in 1994. It was epigastric to substernal lasted for some time before he went away. It was associated with nausea and diaphoresis but no vomiting. He felt lightheaded with palpitations. He last had a stress test 2 years ago. At the time of being seen, patient denied any chest pain or palpitations. His vitals in the ED with temperature 98.8 F, heart rate 85, blood pressure 134/100, respiratory rate was 24, SPO2 is 91% on room room air improved to 96% on 2 L of oxygen. His admitting blood work showed unremarkable CBC D. His BMP was also unremarkable except for blood glucose of 508. X-ray shows no acute cardiopulmonary disease. Past Medical History Past Medical History (Chronic Problems): Chronic Problems DM (diabetes mellitus) (Chronic) Coronary atherosclerosis of [place] coronary artery (Chronic) Essential hypertension (Chronic) Hypothyroidism (Chronic) Old myocardial infarction (Chronic) Hyperosmolar (nonketotic) coma (Chronic) Allergies diphenhydramine HCl [From Benadryl] Allergy (Verified 05/11/19 05:02) Rash Penicillins Allergy (Verified 05/11/19 05:02) Rash venom-honey bee [bee venom (honey bee)] Allergy (Verified 05/11/19 05:02) Swelling Home Medications: Ambulatory Orders Medication Instructions Recorded Atorvastatin Calcium [Lipitor] 40 mg PO QHS 08/16/13 Levothyroxine [Synthroid] 100 mcg PO MOTUWETHFRSA 08/16/13 Lisinopril [Zestril] 20 mg PO DAILY 08/16/13 Aspirin E.C. [Ecotrin] 81 mg PO DAILY@0800 11/11/13 Omeprazole [Prilosec] 20 mg PO DAILY 11/11/13 Levothyroxine [Synthroid] 200 mcg PO GARCIA 03/06/17 Albuterol Inhaler [Ventolin Hfa] 1 - 2 puff INHALATION Q4H PRN PRN 05/17/17 #1 inhaler Benzonatate [Tessalon Perle] 100 mg PO TID PRN PRN #20 cap 10/27/18 Guaifenesin Dm [Robitussin Dm] 10 ml PO Q6H PRN PRN #100 ml 10/27/18 Ibuprofen [Motrin] 800 mg PO TID PRN PRN #20 tab 10/27/18 Insulin Glargine [Lantus SoloStar 84 units SUBCUT DAILY 05/02/19 Pen] Prednisone [Deltasone] 20 mg PO BID 05/02/19 metFORMIN (XR) [Glucophage Xr] 1,000 mg PO BIDCM 05/02/19 Canagliflozin [Invokana] 100 mg PO DAILY 05/11/19 Surgical History: herniorrhaphy, total knee arthroplasty Psychiatric History: No pertinent psych hx Lives: Alone Smoking Status: Never smoker Tobacco Use: Non-smoker Alcohol: None Drugs: None - *Family History Paternal History Items: Pulmonary Disease - Father from emphysema Maternal History Items: Unknown Review of Systems Constitutional: Denies: Anorexia, Chills, Fever, Malaise, Weakness, Weight Change Eyes: Denies: Blurred vision, Cataracts, Conjunctivae Inflammation, Pain, Redness HEENT: Denies: Difficulty Hearing, Difficulty Swallowing, Head Aches, Hearing Changes, Sinus Congestion, Sinus Drainage Cardiovascular: Reports: Chest Pain, Chest Pressure, Chest Tightness, Light Headedness, Palpitations. Denies: Orthopnea Respiratory: Denies: Cough, Hemoptysis, Shortness of breath at rest, Shortness of breath upon exertion, Sputum production Gastrointestinal: Denies: Abdominal Pain, Nausea, Vomiting Genitourinary: Denies: Dysuria, Incontinence Musculoskeletal: Denies: Joint Pain, Joint Tenderness Skin: Denies: Rash, Wounds Neurological: Denies: Numbness, Tingling, Focal weakness Psychiatric: Denies: Anxiety, Depression, Homicidal Ideations, Suicidal Ideations Hematologic/ Lymphatic: Denies: Easy Bruising, Easy Bleeding VTE Information - Inpt Only VTE Present on Admission: No VTE Pharm Prophylaxis ordered?: Yes Patient Problems: Active and Suspected Problems Chest pain (Acute) - Physical Exam General: Alert, Oriented x3, Cooperative, No apparent distress HEENT: Atraumatic, PERRLA, EOMI, Normocephalic Oral: Moist Mucosa Neck: Supple Lungs: Clear to auscultation, Normal air movement Cardiovascular: Regular rate, Regular Rhythm, Normal S1, Normal S2, No murmurs Abdomen: Bowel Sounds Present, Soft, Non Tender, Non-Distended, No Hepato-splenomegaly Extremities: No edema Skin: No rashes, No breakdown Musculoskeletal: No Tenderness to Palpation of Joints or Extremities Lymphatic: No Cervical, Supraclavicular, or Inguinal Adenopathy Neurological: Cranial nerves II-XII grossly intact, Neuro grossly intact Psych/Mental Status: Normal Affect, Appropriate Vital Signs Temp Pulse Resp BP Pulse Ox 98.8 F 72 18 146/100 H 95 05/11/19 04:55 05/11/19 06:11 05/11/19 06:11 05/11/19 06:11 05/11/19 06:11 Oxygen Flow Rate (L/min) 2 Oxygen Delivery Method Nasal Cannula Weight: 107.1 kg Body Mass Index (BMI) 28.0 Finger Stick Blood Glucose 296 Laboratory Tests Past 24 Hrs 05/11/19 05/11/19 05:05 05:05 WBC 7.6 RBC 5.43 Hgb 15.3 Hct 42.1 MCV 77.5 L MCH 28.2 MCHC 36.3 H RDW 13.4 RDW Differential 37.2 Plt Count 217 MPV 9.3 Immature Gran % (Auto) 0.300 Neut % (Auto) 59.8 Lymph % (Auto) 28.9 [place] % (Auto) 6.4 Eos % (Auto) 4.1 Baso % (Auto) 0.5 Absolute Neuts (auto) 4.5 Absolute Lymphs (auto) 2.18 Total Counted Not Reportable Sodium 138 Potassium 3.7 Chloride 101 Carbon Dioxide 28.0 Anion Gap 9 BUN 15 Creatinine 1.02 Estim Creat Clear Calc 98.27 Est GFR (MDRD) Af Amer 96 Est GFR (MDRD) Non-Af 79 BUN/Creatinine Ratio 14.7 Glucose 508 H* Calcium 9.0 Troponin I < 0.015 Assessment/Plan All Active Problems Abdominal pain (Acute) Pancreatitis (Acute) Chest pain (Acute) Chest pain (Acute) TARYN (acute kidney injury) (Resolved) Dizziness (Resolved) Acute electrocardiogram changes (Resolved) 59 year old M with type II DM, hypertension, hypothyroidism, hyperlipidemia who was discharged on 05/03/19 after admission with acute pancreatitis believed to be secondary to his diabetes medications comes in with complaints of chest pain associated with diaphoresis, nausea and palpitations 1. Chest pain, concerning for possible angina, history of CAD status post stent/SD, initial EKG showed T wave inversions in lead I, II, III, V3 and V4. Plan: Admit to PCU, trend troponins, stress test if troponins are negative, monitor on telemetry, continue on aspirin, Will start low-dose beta-humberto, 12.5 mg p.o. twice daily, continue on statin 2. Hyperglycemia in the known type II DM, likely secondary to dietary indiscretion vs medication non-compliance Meeting blood sugar is 508, patient was given insulin in the ED, given IV fluids, will continue with IV fluids, continue with home Lantus regimen as well as Accu-Cheks with insulin sliding scale. 3. Hyperlipidemia, on statin 4. Hypertension, controlled, continue lisinopril, continue to monitor vitals 5. Hypothyroidism, on levothyroxine 6. DVT prophylaxis with heparin subcu Code Visit OBSV E&M: 21511 Initial observation care L3
[2019-05-11 06:41] LABS: Bedside Glucose > 500 mg/dL (70-110)
--- NOTE | 2019-05-11 06:49 | EKG12_ITS ---
Test Reason : CP ADMISSION Blood Pressure : / mmHG Vent. Rate : 070 BPM Atrial Rate : 070 BPM P-R Int : 172 ms QRS Dur : 098 ms QT Int : 418 ms P-R-T Axes : 056 -44 -12 degrees QTc Int : 451 ms Normal sinus rhythm Left axis deviation Nonspecific ST abnormality Abnormal ECG When compared with ECG of 11-MAY-2019 05:01, MANUAL COMPARISON REQUIRED, DATA IS UNCONFIRMED Confirmed by MITALI TRACY, TABBY ([id number]), editor newspaper MARCIANO PACE ([id number]) on 05/18/2019 2:07:39 PM Referred By: PAMELA Confirmed By:KRISTIE JASMINE MD
[2019-05-11 08:20] LABS: Bedside Glucose 410 mg/dL (70-110)
[2019-05-11] MEDS: Metoprolol Tartrate 25 MG Tablet 12.5 MG PO ×2 (08:21→22:59)
[2019-05-11] MEDS: predniSONE 20 MG Tablet PO (08:21)
[2019-05-11] MEDS: Pantoprazole Sodium 20 MG Tablet PO (08:21)
[2019-05-11] MEDS: Lisinopril 20 MG Tablet PO (08:22)
[2019-05-11] MEDS: Levothyroxine 100 MCG Tablet PO (08:23)
[2019-05-11 11:40] LABS: Bedside Glucose 365 mg/dL (70-110)
--- NOTE | 2019-05-11 11:53 | CHAPLAIN ---
Type of Pastoral Visit _x__ Initial Visit ___ Follow-up Visit ___ On-call Visit ___ General Patient Visit ___ Spiritual Assessment ___ Family Conference ___ Bereavement ___ Rapid Response ___ Code Blue ___ Other (describe below) Pastoral Care Referral From _x__ Patient ___ Family ___ Nurse ___ Physician ___ Grain Picker ___ Firewall Security Engineer ___ Other (describe below) Sacrament/Intervention _x__ Active listening ___ Anointing ___ Voodoo ___ Bereavement ___ Communion ___ Katarzyna exploration ___ _x__ Life review _x__ Prayer ___ Reconciliation ___ Sacrament of Sick _x__ Supportive presence ___ Wedding ___ Other (describe below) Pastoral Comments patient recalls other times this director [employer] was supportive of pt and of his sister in previous admissions; pt is talkative and goes into details about his life with some difficult memories
--- NOTE | 2019-05-11 15:17 | EKG12_ITS ---
Test Reason : CP Blood Pressure : / mmHG Vent. Rate : 065 BPM Atrial Rate : 065 BPM P-R Int : 172 ms QRS Dur : 090 ms QT Int : 430 ms P-R-T Axes : 050 -39 -07 degrees QTc Int : 447 ms Normal sinus rhythm Left axis deviation Nonspecific T wave abnormality Abnormal ECG When compared with ECG of 11-MAY-2019 06:58, MANUAL COMPARISON REQUIRED, DATA IS UNCONFIRMED Confirmed by MITALI TRACY, TABBY ([id number]), video effects editor MARCIANO PACE ([id number]) on 05/18/2019 2:07:04 PM Referred By: KRYSTAL Confirmed By:KRISTIE JASMINE MD
[2019-05-11] MEDS: Heparin Injection (Vial) 5,000 UNIT/ML VIAL 5000 UNIT SC ×2 (15:25→23:00)
[2019-05-11 15:36] LABS: Bedside Glucose 411 mg/dL (70-110)
[2019-05-11] MEDS: Acetaminophen 325 MG Tablet 650 MG PO (16:15)
[2019-05-11] MEDS: Insulin Lispro 100 UNIT/ML INSULN.PEN 18 UNIT SC (16:24)
[2019-05-11 17:06] LABS: Bedside Glucose 415 mg/dL (70-110)
--- NOTE | 2019-05-11 19:25 | PCM.HOSP.N ---
Hospitalist Note Patient was seen and examined today, all troponins were normal, patient had an episode of chest pain today and an EKG was performed which showed no evidence of ischemic changes. Patient's blood sugars are under poor control, I have increased his basal insulin and place him on Humalog with each meal. It appears that the patient's dose of basal insulin has remained same as it was when he was in the hospital 2 years ago, I feel the patient is noncompliant with his medications and has not been following up with his diabetes as he should. Patient will have a stress test tomorrow.
[2019-05-11] MEDS: Atorvastatin Calcium 40 MG Tablet PO (22:59)
[2019-05-11 23:56] LABS: Bedside Glucose 318 mg/dL (70-110)
[2019-05-12 03:19] VITALS: PULSE 55
[2019-05-12 04:45] VITALS: BP 99/54; PULSE 55; RESP 16; TEMP 36.6; O2SAT 95
[2019-05-12] MEDS: Aspirin E.C. 81 MG Tablet PO (04:48)
[2019-05-12] MEDS: Levothyroxine 100 MCG Tablet PO (04:48)
[2019-05-12] MEDS: Lisinopril 20 MG Tablet PO (04:48)
--- NOTE | 2019-05-12 05:55 | EKG12_ITS ---
Test Reason : AM EKG Blood Pressure : / mmHG Vent. Rate : 054 BPM Atrial Rate : 054 BPM P-R Int : 168 ms QRS Dur : 110 ms QT Int : 462 ms P-R-T Axes : 067 -23 -34 degrees QTc Int : 438 ms Sinus bradycardia Incomplete right bundle branch block Nonspecific T wave abnormality Abnormal ECG When compared with ECG of 11-MAY-2019 15:25, MANUAL COMPARISON REQUIRED, DATA IS UNCONFIRMED Confirmed by TESSA TRACY, MENDY ([id number]), television news video editor MARCIANO PACE ([id number]) on 05/16/2019 11:21:46 AM Referred By: PAMELA Confirmed By:MENDY ZARATE MD
[2019-05-12 06:46] LABS: Bedside Glucose 264 mg/dL (70-110)
[2019-05-12 06:56] LABS: Absolute Lymphocyte Count 2.03 X10^3/ul (0.83-4.51); Absolute Neutrophil Count 4.5 X10^3/uL (2.0-7.7); Basophil# 0.02 X10^3/uL; Basophil% 0.3 % (0-1); Eosinophil# 0.22 X10^3/uL; Hematocrit 38.7 % (40-54); Hemoglobin 13.8 g/dl (13.0-16.5); Lymphocyte # 2.03 X10^3/ul (4.0); Mean Corp Hgb Conc 35.7 g/gl (32-36); Mean Corpuscular Volume 81.3 fL (80-94); Mean Platelet Vol. 9.1 fl (6.2-12.0); Monocyte# 0.43 X10^3/uL; Monocyte% 5.9 % (0-10); Neutrophil # 4.54 X10^3/uL (2.7-7.7); Neutrophil % 62.7 % (47-70); Platelet Count 138 K/mm3 (150-450); RBC Distribution Width CV 13.2 % (11.6-14.6); RBC Distribution Width SD 39.1 fl (35.1-43.9); Red Blood Count 4.76 M/mm3 (4.6-6.2); White Blood Count 7.3 K/mm3 (4.4-11.0)
[2019-05-12 07:03] LABS: POSITIVE COUNT NO; POSITIVE DIFFERENTIAL NO; POSITIVE MORPHOLOGY NO
[2019-05-12 07:07] VITALS: PULSE 51
[2019-05-12 07:12] LABS: Anion Gap 5 (5-15); BUN 11 mg/dL (7-18); BUN/Creat Ratio 12.4 RATIO (10-20); Calcium,Total 8.5 mg/dL (8.5-10.1); Chloride 107 mmol/L (98-107); Creatinine, Serum 0.89 mg/dL (0.70-1.30); EST Glomerular Filtration Rate 93 mL/min (>60); Est Glom Filt Rate - Afr Amer 113 mL/min (>60); Estimated Creatinine Clearance 112.63 ml/min; Glucose 276 mg/dL (74-106); Potassium 3.5 mmol/L (3.5-5.1); Sodium Level 140 mmol/L (136-145)
[2019-05-12 09:20] VITALS: PULSE 64
[2019-05-12] MEDS: Pantoprazole Sodium 20 MG Tablet PO (09:20)
[2019-05-12] MEDS: Metoprolol Tartrate 25 MG Tablet 12.5 MG PO (09:20)
[2019-05-12 09:30] VITALS: BP 136/87; PULSE 64; RESP 16; TEMP 36.4; O2SAT 95
--- NOTE | 2019-05-12 10:03 | STRESSREP ---
Stress Test Report Pharmacologic myocardial perfusion stress test. 59-year-old male with a history of chest pain. Stress protocol: Resting EKG demonstrates sinus bradycardia with a rate of 56 bpm normal intervals are noted resting blood pressure is 122/62 mmHg. 0.4 mg of regadenoson was infused per usual protocol followed by rapid intravenous saline flush injection continuous EKG monitoring was performed. The maximum heart rate attained was 83 bpm which was 51% of maximum predicted heart rate the maximum workload was 1 metabolic equivalent. At rest there were no ST or T wave changes noted suggest abnormal flow reserve at peak infusion nonspecific ST-T wave changes were noted with no evidence of ischemia. Myocardial perfusion protocol. 14.1 mCi of technetium 99m sestamibi was injected at rest. 0.4 mg of regadenoson was infused per usual protocol. At peak infusion 42.5 mCi of technetium 99m sestamibi was injected stress images were obtained stress and rest images were reconstructed and compared in the short axis vertical and horizontal long axis. Gated images were also obtained Perfusion SPECT analysis: Review of the stress images demonstrate normal perfusion noted in this septum anterior wall lateral wall. The inferior wall has reduced perfusion and this is present on the stress and rest images. Previous inferior infarct cannot be completely excluded diaphragmatic attenuation is also possible. No obvious ischemia is noted. Gated SPECT analysis: The gated ejection fraction is noted to be 74%. Conclusion: Myocardial perfusion stress test with no evidence of ischemia. Previous inferior infarct cannot be excluded. Preserved ejection fraction.
[2019-05-12] MEDS: Insulin Lispro 100 UNIT/ML INSULN.PEN 18 UNIT SC (10:36)
--- NOTE | 2019-05-12 10:36 | DCINST_ITS ---
- Discharge Diagnoses Current Active Problems: Current Active and Chronic Problems Chest pain (Acute) You will use the following diet at home:: Calorie/Carbohydrate Controlled (specify 1200, 1400, etc) - 1800 kierra Your food should be the consistency of: Regular Your liquids should be the consistency of: Regular/Thin Discharge Activity: Return to Normal Activity Weight Bearing Status: Full weight bearing Allergies/Adverse Reactions: Allergies diphenhydramine HCl [From Benadryl] Allergy (Verified 05/11/19 05:02) Rash Penicillins Allergy (Verified 05/11/19 05:02) Rash venom-honey bee [bee venom (honey bee)] Allergy (Verified 05/11/19 05:02) Swelling Medications to take at Discharge Atorvastatin Calcium [Lipitor] 40 mg PO QHS 08/16/13 Levothyroxine [Synthroid] 100 mcg PO MOTUWETHFRSA 08/16/13 Lisinopril [Zestril] 20 mg PO DAILY 08/16/13 Aspirin E.C. [Ecotrin] 81 mg PO DAILY@0800 11/11/13 Omeprazole [Prilosec] 20 mg PO DAILY 11/11/13 Levothyroxine [Synthroid] 200 mcg PO GARCIA 03/06/17 Albuterol Inhaler [Ventolin Hfa] 1 - 2 puff INHALATION Q4H PRN PRN #1 inhaler 05/17/17 Benzonatate [Tessalon Perle] 100 mg PO TID PRN PRN #20 cap 10/27/18 Guaifenesin Dm [Robitussin Dm] 10 ml PO Q6H PRN PRN #100 ml 10/27/18 Ibuprofen [Motrin] 800 mg PO TID PRN PRN #20 tab 10/27/18 metFORMIN (XR) [Glucophage Xr] 1,000 mg PO BIDCM 05/02/19 Canagliflozin [Invokana] 100 mg PO DAILY 05/11/19 Insulin Glargine [Lantus SoloStar Pen] 50 units SUBCUT BID pen 05/12/19 Insulin Lispro [Humalog KwikPen] 18 unit SUBCUT TIDAC insuln.pen 05/12/19 Primary Care Physician: Sushant Fernandez MD [Primary Care Provider] - Please follow up with your Primary Care Physician in: next week Test Results: Test results from this visit will be discussed in further detail at your follow- up appointment, if applicable.
--- NOTE | 2019-05-13 15:03 | DS.PCM_ITS ---
Discharge Date and Diagnosis Date of Admission: 05/11/19 Date of Discharge: 05/12/19 - Primary Discharge Diagnosis #1 musculoskeletal chest pain #2 uncontrolled type 2 diabetes secondary to patient noncompliance #3 coronary artery disease #4 hypertension - Secondary Discharge Diagnosis Chronic Problems DM (diabetes mellitus) (Chronic) Coronary atherosclerosis of [place] coronary artery (Chronic) Essential hypertension (Chronic) Hypothyroidism (Chronic) Old myocardial infarction (Chronic) Hyperosmolar (nonketotic) coma (Chronic) Hospital Course and Treatment Operations: None Procedures: Nuclear stress test Summary of Care Provided: The patient is a 59 year old M was seen in the emergency room at [facility] with chief complaint of chest pain and cephalgia. Patient had a past history of coronary artery stent placement. Work-up in the emergency room included an EKG which showed no evidence of acute ischemic changes, patien t's troponin was unremarkable, blood sugars were significantly elevated. Patient was placed in observation status on PCU, cardiac enzymes were cycled these remain negative, blood sugars were brought under control with adjustment of the patient's insulin. It was noted that the patient's hemoglobin A1c in 2017 was elevated, at that time, he was on the same dose of his basal insulin as he was when he came in the hospital this time. I feel the patient is noncompliant with following up with his medical problems. Patient also listed prednisone as a home medication, I called around to 3 different pharmacies that the patient uses, patient has not had prednisone prescribed to him for many months. On 05/12/2019, patient underwent a nuclear stress test which was negative for reversible ischemia. On that date he was seen and examined: On examination he appeared in good health and spirits. Vital signs as documented. Skin warm and dry and without overt rashes. Neck without JVD. Lungs clear. Heart exam notable for regular rhythm, normal sounds and absence of murmurs, rubs or gallops. Abdomen unremarkable and without evidence of organomegaly, masses, or abdominal aortic enlargement. Extremities nonedematous. Neuro: Cranial nerves II through XII are grossly intact, no focal motor deficits were noted, sensation to light touch and pinprick intact. Psych: Patient is alert and oriented x3, he does not appear anxious or depressed On 05/12/2019, patient was seen and examined felt to be in stable condition for discharge home - Physical Exam Vital Signs Temp Pulse Resp BP Pulse Ox 97.6 F L 64 16 136/87 H 95 05/12/19 09:30 05/12/19 09:30 05/12/19 09:30 05/12/19 09:30 05/12/19 09:30 Oxygen Flow Rate (L/min) 2 Oxygen Delivery Method Room Air Weight: 104.3 kg Body Mass Index (BMI) 27.2 Finger Stick Blood Glucose 501 Intake and Output for Last 24 Hours 05/11/19 05/12/19 05/13/19 23:59 23:59 23:59 Intake Total 3472 / 3472 120 / 120 Output Total 2180 / 2180 Balance 1292 / 1292 120 / 120 Discharge Activity: Return to Normal Activity Weight Bearing Status: Full weight bearing Home Medications: Medications to take at Discharge Atorvastatin Calcium [Lipitor] 40 mg PO QHS 08/16/13 Levothyroxine [Synthroid] 100 mcg PO MOTUWETHFRSA 08/16/13 Lisinopril [Zestril] 20 mg PO DAILY 08/16/13 Aspirin E.C. [Ecotrin] 81 mg PO DAILY@0800 11/11/13 Omeprazole [Prilosec] 20 mg PO DAILY 11/11/13 Levothyroxine [Synthroid] 200 mcg PO GARCIA 03/06/17 Albuterol Inhaler [Ventolin Hfa] 1 - 2 puff INHALATION Q4H PRN PRN #1 inhaler 05/17/17 Benzonatate [Tessalon Perle] 100 mg PO TID PRN PRN #20 cap 10/27/18 Guaifenesin Dm [Robitussin Dm] 10 ml PO Q6H PRN PRN #100 ml 10/27/18 Ibuprofen [Motrin] 800 mg PO TID PRN PRN #20 tab 10/27/18 metFORMIN (XR) [Glucophage Xr] 1,000 mg PO BIDCM 05/02/19 Canagliflozin [Invokana] 100 mg PO DAILY 05/11/19 Insulin Glargine [Lantus SoloStar Pen] 50 units SUBCUT BID pen 05/12/19 Insulin Lispro [Humalog KwikPen] 18 unit SUBCUT TIDAC insuln.pen 05/12/19 Primary Care Physician: Sushant Fernandez MD [Primary Care Provider] - Please follow up with your Primary Care Physician in: next week Disposition: Home Minutes spent on discharge:: 31 Patient Condition:: Stable Medical Necessity - Tobacco Use Smoking Status: Never smoker Tobacco Use: Non-smoker Meaningful Use Info Meaningful Use Diagnoses (Choose all that apply): None applicable Code Visit OBSV E&M: 65994 Observation care discharge
== END 2019-05-12 10:37 | disposition home or self-care (01) ==
LOC: ED 06:07 → PCU 06:10
PROVIDERS: Admitting Provider Internal Medicine; Emergency Provider Emergency Medicine; Family Provider Family Medicine; PCP Family Medicine; Visit Provider Internal Medicine
DX: R07.89 Other chest pain (principal); E11.65 Type 2 diabetes mellitus with hyperglycemia; I25.10 Atherosclerotic heart disease of native coronary artery without angina pectoris; I10 Essential (primary) hypertension; Z91.14 Patient's other noncompliance with medication regimen; Z79.899 Other long term (current) drug therapy; Z79.4 Long term (current) use of insulin; Z79.82 Long term (current) use of aspirin; E03.9 Hypothyroidism, unspecified; R51 Headache
CPT/HCPCS: 36415; 71045; 78452; 80048; 82962; 84484; 85025; 93005; 93017; 96361; 96372; 96374; 96375; 96376; 99218; 99285; A9500; J7030; A4216; G0378; J2405; J2785

== ENCOUNTER 2019-05-18 21:54 | Emergency (ER) | payer MEDICAID, SELFPAY ==
[2019-05-11 06:57] VITALS: BMI 27.2
[2019-05-18 21:54] VITALS: BP 133/95; PULSE 85; RESP 14; TEMP 36.5; O2SAT 94; BMI 27.3
[2019-05-18 22:05] LABS: Bedside Glucose 402 mg/dL (70-110)
--- NOTE | 2019-05-18 22:13 | ED.VIS.GEN ---
History of Present Illness Chief Complaint: Nausea/Vomiting Detail of Chief Complaint: Generalized weakness Informant: Patient Onset: Today Context: Sudden Onset Timing: Continuous Quality: Thirst, nausea and vomiting, elevated blood sugar Location: Outdoors Current Severity: Moderate Maximum Severity: Moderate Worsened by: Exposure to excessive heat Relieved by: Nothing Associated Symptoms: Hyperglycemia, dry mouth, thirst and increased urination Narrative: Patient is a 59-year-old male with type 2 diabetes requiring insulin who presents with generalized malaise, nausea vomiting, thirst, dry mouth and elevated blood sugar greater than 400. He states he did eat today. He states he did drink fluids. He does complain of headache. He denies double vision, blurred vision or change in vision. He denies trouble with speech or swallowing. He denies cardiac or respiratory symptoms. He denies blood in his urine. Denies black or maroon stool. He denies paresthesia, anesthesia motor weakness. Prior similar symptoms: Yes Recent Illness/Hospitalization: No - Past Medical History (1) Pancreatitis Status: Acute (2) Coronary atherosclerosis of [place] coronary artery Status: Chronic (3) DM (diabetes mellitus) Status: Chronic (4) Essential hypertension Status: Chronic (5) Hypothyroidism Status: Chronic Past Medical History - Allergies and Home Meds Allergies/Adverse Reactions: Allergies diphenhydramine HCl [From Benadryl] Allergy (Verified 05/18/19 21:56) Rash Penicillins Allergy (Verified 05/18/19 21:56) Rash venom-honey bee [bee venom (honey bee)] Allergy (Verified 05/18/19 21:56) Swelling Primary Care Physician: Sushnat Fernandez MD [Primary Care Provider] - 3-5 Days Prior records reviewed: Yes Surgical History: herniorrhaphy, total knee arthroplasty Lives: Alone Smoking Status: Never smoker Alcohol: None Drugs: None - Family History Paternal Family History: Reports: Pulmonary Disease - Father from emphysema Additional Family History: No heart disease Maternal Family History: Reports: Unknown Review of Systems General: Reports: Malaise, Sweats. Denies: Chills, Fever, Subjective, Weight loss Eyes: Denies: Visual changes - bilaterally, Blurred Vision - bilaterally, Diplopia ENT: Denies: Rhinorrhea, Sore throat Cardiovascular: Denies: Chest pain, Palpitations Respiratory: Denies: Dyspnea, Cough, Dyspnea on exertion Gastrointestinal: Reports: Nausea, Vomiting Genitourinary: Reports: Frequency. Denies: Dysuria, Hematuria, -, - Musculoskeletal: Denies: Myalgias, Arthralgias, Neck pain, Back pain, Extremity Pain Skin: Denies: Rash, Wounds Neurological: Denies: Headache, Weakness, Numbness Endocrine: Reports: Polyuria, Polydipsia Physical Exam Vital Signs/Narrative: Vital Signs Temp Pulse Resp BP Pulse Ox 05/18/19 21:54 97.7 F L 85 14 133/95 H 94 Inital Vital Signs reviewed: Yes General: Well nourished, Well developed, No Acute Distress Head: Normocephalic, Atraumatic Eyes: Perrl, EOMI ENT: No rhinorrhea, Dry mucous membranes Neck: Supple, Nontender Cardiovascular: Regular rate, Regular rhythm, No murmurs Respiratory: No distress, CTA bilaterally, Chest nontender Abdomen: Soft, Nontender, Nondistended, Normal bowel sounds Back: Nontender, Normal Inspection Extremities: Nontender, No edema Skin: Normal color, No rash Neurological: Alert, Oriented x3, Cranial nerves II-XII grossly intact, Normal Strength, Normal Sensation Psychological: Normal affect, Normal Mood Diagnostic/Tx/Re-eval - Medical Decision Making Patient symptoms are consistent with heat exhaustion/heat cramp. Because of his medical problems basic metabolic panel was obtained to assess blood sugar, CO2 and anion gap and renal function since there is a history of renal failure. 1 L of normal saline was ordered. Patient received 10 units of insulin subcu for elevated blood sugar. ED Disposition - Plan for ED Patient: Diagnosis: Hyperglycemia due to type 2 diabetes mellitus, Heat cramp, initial encounter Instructions: ED Diabetic Hyperglycemia, Heat Cramp Referrals: Sushant Fernandez MD [Primary Care Provider] - 3-5 Days
[2019-05-18] MEDS: 0.9% Normal Saline 1,000 ML 1000 ML IV (22:15)
[2019-05-18 22:43] LABS: Color, Urine Yellow (Yellow); Glucose, Dipstick 1000 mg/dl (Normal); Ketone-Dipstick Negative (Negative); Leukocyte Esterase-Dipstick 500 /ul (Negative); Nitrite-Dipstick Negative (Negative); Occult Blood-Urine 10 /ul (Negative); Protein-Dipstick 15 mg/dl (Negative); Urine Bilirubin Dipstick Negative (Negative); Urine Clarity Sl. Cloudy (Clear); Urine Urobilinogen Normal (Normal)
[2019-05-18 22:55] LABS: Anion Gap 7 (5-15); BUN 17 mg/dL (7-18); BUN/Creat Ratio 14.9 RATIO (10-20); Calcium,Total 9.1 mg/dL (8.5-10.1); Chloride 102 mmol/L (98-107); Creatinine, Serum 1.14 mg/dL (0.70-1.30); EST Glomerular Filtration Rate 70 mL/min (>60); Est Glom Filt Rate - Afr Amer 85 mL/min (>60); Estimated Creatinine Clearance 87.93 ml/min; Glucose 370 mg/dL (74-106); Potassium 3.5 mmol/L (3.5-5.1); Sodium Level 140 mmol/L (136-145)
[2019-05-18] MEDS: Insulin Lispro 100 UNIT/ML INSULN.PEN 10 UNIT SC (23:47)
[2019-05-18 23:49] VITALS: BP 137/99; PULSE 68; RESP 18; O2SAT 95
[2019-05-19 00:41] VITALS: BP 113/77; PULSE 74; RESP 20; O2SAT 94
[2019-05-19 01:21] LABS: Bedside Glucose 281 mg/dL (70-110)
== END 2019-05-19 00:42 | disposition home or self-care (01) ==
LOC: ED 23:11
PROVIDERS: Emergency Provider Emergency Medicine; Family Provider Family Medicine; PCP Family Medicine
DX: E11.65 Type 2 diabetes mellitus with hyperglycemia (principal); T67.2XXA Heat cramp, initial encounter; X30.XXXA Exposure to excessive natural heat, initial encounter; Y93.9 Activity, unspecified; Y92.9 Unspecified place or not applicable; I25.10 Atherosclerotic heart disease of native coronary artery without angina pectoris; I10 Essential (primary) hypertension; E03.9 Hypothyroidism, unspecified; Z79.4 Long term (current) use of insulin; Z79.84 Long term (current) use of oral hypoglycemic drugs; Z79.899 Other long term (current) drug therapy
CPT/HCPCS: 80048; 81002; 82962; 96360; 96372; 99285; J7030

== ENCOUNTER 2019-05-22 11:14 | Emergency (ER) | payer MEDICAID, SELFPAY ==
[2019-05-22 11:15] VITALS: BP 130/87; PULSE 84; RESP 16; TEMP 36.6; O2SAT 95; BMI 26.2
[2019-05-22 11:25] LABS: Bedside Glucose 439 mg/dL (70-110)
--- NOTE | 2019-05-22 11:25 | ED.DCSUM_ITS ---
- ER Visit Summary Date of Service: 05/22/19 Chief Complaint: Generalized weakness History of Present Illness: The patient is a 59 M who comes in with generalized weakness. He is also concerned about his blood sugar. [place] when he just felt generally weak. He believes his blood sugar may be abnormal. It was 138 this morning. He states he does not really eat anything during the day but only has one meal at dinnertime. He took his insulin this morning along with his metformin. Denies any fevers. No slurred speech or facial droop. Physical Examination: Vital signs reviewed. HEENT exam unremarkable. Heart is regular rate and rhythm without murmurs. Lungs are clear to auscultation. Abdomen is soft and nontender. Extremities reveal no edema. Skin exam normal. Neurologic exam normal. Test Results: Glucose is 439. Repeat glucose is 321 after insulin Emergency Department Course and Treatment: The patient looks very well. I do not feel he needs any laboratory studies as he has had no vomiting or diarrhea. His symptoms only started just prior to arrival. I gave him subcutaneous insulin and repeat his blood sugar and it is coming down. Patient will continue his normal regimen at home and will follow up with his PCP. Treatment Plan: [] Disposition: Discharge Impression: Hyperglycemia This note was generated with [employer] dictation software. It may contain incorrect words, spelling, and punctuation that were not noted in review of the chart prior to signing ED Disposition - Plan for ED Patient: Referrals: Sushant Fernandez MD [Primary Care Provider] -
[2019-05-22] MEDS: 0.9% Normal Saline 1,000 ML 999 ML IV (11:34)
[2019-05-22] MEDS: Insulin Human 75/25 Kwickpen 20 UNIT SC (12:03)
--- NOTE | 2019-05-22 13:22 | ED.DEP ---
ED Disposition - Plan for ED Patient: Disposition: Home or Assisted Living Instructions: ED Diabetic Hyperglycemia Referrals: Sushant Fernandez MD [Primary Care Provider] -
[2019-05-22 13:26] LABS: Bedside Glucose 321 mg/dL (70-110)
== END 2019-05-22 13:31 | disposition home or self-care (01) ==
PROVIDERS: Emergency Provider Emergency Medicine; Family Provider Family Medicine; PCP Family Medicine
DX: E11.65 Type 2 diabetes mellitus with hyperglycemia (principal); I10 Essential (primary) hypertension; Z79.4 Long term (current) use of insulin; Z79.84 Long term (current) use of oral hypoglycemic drugs; Z79.82 Long term (current) use of aspirin; Z79.899 Other long term (current) drug therapy
CPT/HCPCS: 82962; 96360; 99283; J7030; A4216

== ENCOUNTER 2019-05-25 06:53 | Emergency (ER) | payer MEDICAID, SELFPAY ==
[2019-05-25 06:54] VITALS: BP 161/95; PULSE 69; RESP 18; TEMP 36.4; O2SAT 98; BMI 27.4
--- NOTE | 2019-05-25 07:00 | ED.RN ---
REPORT FROM Greta SIMON PT AWAITING EVALUATION BY PHYSICIAN. PT SITTING COMFORTABLY, CALL LIGHT WITHIN REACH, PT DENIES FURTHER NEEDS AT THIS TIME.
[2019-05-25 07:36] LABS: Bedside Glucose 249 mg/dL (70-110)
--- NOTE | 2019-05-25 08:36 | ED.DCSUM_ITS ---
- ER Visit Summary Date of Service: 05/25/19 Chief Complaint: I feel bad History of Present Illness: The patient is a 59 M who presents the emergency department stating that at 630 this morning he took his morning pills. Shortly thereafter he states he felt very poorly. He states it feels like my blood sugars. Does note nausea. Other than that he cannot really describe it. He has not had any syncope palpitations vomiting myalgias. He has not had any breakfast yet. Physical Examination: Afebrile vital signs are stable Gen: Well-nourished well-developed Head: Normocephalic atraumatic Eyes: Perrl EOMI ENT: TMs clear no rhinorrhea moist mucous membranes Neck: Supple no lymphadenopathy no JVD nontender CVS: Regular rate rhythm no murmurs normal S1-S2 Respiratory: No distress clear to auscultation bilaterally chest nontender Abdomen: Soft nontender nondistended normal bowel sounds no masses Back: Nontender Extremity: Nontender no edema Skin: Normal color no rash Neuro: alert orientated ?3 CN II-XII intact normal strength sensation reflexes gait cerebellar Psych: Normal affect normal mood Test Results: Accu-Chek was 249. Emergency Department Course and Treatment: She was observed in the department. He ate breakfast. Has nausea and I will give him a Zofran. At this point he has no focal complaints other than a generalized feeling of feeling poorly and nauseated.. His exam is benign. Be discharged home return if worsening or concerns Impression: 1. Malaise This note was generated with [employer] dictation software. It may contain incorrect words, spelling, and punctuation that were not noted in review of the chart prior to signing ED Disposition - Plan for ED Patient: Disposition: Home or Assisted Living Instructions: WEAKNESS, Unk Cause Referrals: Sushant Fernandez MD [Primary Care Provider] - 3-5 Days
[2019-05-25] MEDS: Ondansetron ODT 4 MG Tablet PO (08:47)
== END 2019-05-25 08:47 | disposition home or self-care (01) ==
PROVIDERS: Emergency Provider Emergency Medicine; Family Provider Family Medicine; PCP Family Medicine
DX: R53.81 Other malaise (principal); R11.0 Nausea; E11.9 Type 2 diabetes mellitus without complications; Z79.4 Long term (current) use of insulin; Z79.84 Long term (current) use of oral hypoglycemic drugs; Z79.899 Other long term (current) drug therapy
CPT/HCPCS: 82962; 99284

== ENCOUNTER 2019-05-25 10:54 | Emergency (ER) | payer MEDICAID, SELFPAY ==
[2019-05-25 06:54] VITALS: BMI 27.4
[2019-05-25 10:55] VITALS: BP 121/73; PULSE 75; RESP 17; TEMP 36.8; O2SAT 95; BMI 26.9
--- NOTE | 2019-05-25 11:22 | EKG12_ITS ---
Test Reason : DIZZINESS Blood Pressure : / mmHG Vent. Rate : 075 BPM Atrial Rate : 075 BPM P-R Int : 166 ms QRS Dur : 094 ms QT Int : 386 ms P-R-T Axes : 058 -43 039 degrees QTc Int : 431 ms Normal sinus rhythm Left axis deviation Incomplete right bundle branch block Abnormal ECG Confirmed by MITALI TRACY, TABBY ([id number]), electronic news gathering editor JADEN HERNANDEZ ([id number]) on 05/28/2019 1:47:39 PM Referred By: JULIET Confirmed By:KRISTIE JASMINE MD
[2019-05-25 11:50] LABS: Absolute Lymphocyte Count 1.61 X10^3/uL (0.83-4.51); Absolute Neutrophil Count 5.1 X10^3/uL (2.0-7.7); Basophil# 0.04 X10^3/uL; Basophil% 0.5 % (0-1); Eosinophil# 0.21 X10^3/uL; Eosinophils% 2.8 % (0-5); Hematocrit 44.8 % (40-54); Hemoglobin 16.1 g/dL (13.0-16.5); Lymphocyte # 1.61 X10^3/ul (4.0); Lymphocyte % 21.5 % (19-41); Mean Corp Hgb Conc 35.9 g/dL (32-36); Mean Corpuscular Hgb 29.5 pg (27.0-32.0); Mean Corpuscular Volume 82.2 fL (80-94); Mean Platelet Vol. 9.2 fl (6.2-12.0); Monocyte# 0.48 X10^3/uL; Monocyte% 6.4 % (0-10); NRBC Flagged by Analyzer 0 % (0-5); Neutrophil # 5.13 X10^3/uL (2.7-7.7); Neutrophil % 68.5 % (47-70); Platelet Count 219 K/mm3 (150-450); RBC Distribution Width CV 12.9 % (11.6-14.6); Red Blood Count 5.45 M/mm3 (4.6-6.2); White Blood Count 7.5 K/mm3 (4.4-11.0)
[2019-05-25 12:02] LABS: Bacteria 0 SEEN /hpf (None Seen); Mucous, Urine 0 SEEN /hpf (<or=2+); Squamous Epithelial Cells - UA 0 SEEN /hpf (0-5)
[2019-05-25 12:03] LABS: Color, Urine Yellow (Yellow); Glucose, Dipstick 1000 mg/dl (Normal); Ketone-Dipstick Negative (Negative); Leukocyte Esterase-Dipstick 25 /ul (Negative); Nitrite-Dipstick Negative (Negative); Occult Blood-Urine Negative /ul (Negative); Protein-Dipstick Negative (Negative); Urine Bilirubin Dipstick Negative (Negative); Urine Clarity Clear (Clear); Urine Urobilinogen Normal (Normal)
[2019-05-25 12:06] LABS: ALB/GLOB Ratio 1.1 RATIO (0.9-2.4); AST(SGOT) 7 U/L (15-37); Alanine Aminotransfer ALT/SGPT 15 U/L (16-61); Albumin, Serum 4.1 g/dL (3.2-5.0); Alkaline Phosphatase 74 U/L (45-117); Anion Gap 8 (5-15); BUN 14 mg/dL (7-18); BUN/Creat Ratio 13.5 RATIO (10-20); Chloride 103 mmol/L (98-107); Creatinine, Serum 1.04 mg/dL (0.70-1.30); EST Glomerular Filtration Rate 78 mL/min (>60); Est Glom Filt Rate - Afr Amer 94 mL/min (>60); Estimated Creatinine Clearance 96.38 ml/min; Globulin 3.6 g/dL (2.2-4.2); Glucose 194 mg/dL (74-106); Protein, Total 7.7 g/dL (6.4-8.2); Sodium Level 141 mmol/L (136-145)
[2019-05-25 12:10] LABS: Red Blood Cells-Urine 0-5 SEEN /hpf (0-5); White Blood Cells 0-5 SEEN /hpf (0-5)
--- NOTE | 2019-05-25 13:12 | ED.VISSUMM ---
- ER Visit Summary Date of Service: 05/25/19 Chief Complaint: Nausea History of Present Illness: The patient is a 59 M who was just seen in the emergency department a couple hours before this presentation. He states he is not any better. After leaving here he walked and made a car payment. While there with his brother he did not feel any better and states that he felt a little bit worse believing that his blood sugar now has a problem. Earlier he is blood sugars in the 200s. States he feels lightheaded. Physical Examination: Afebrile vital signs stable Gen: Well-nourished well-developed Head: Normocephalic atraumatic Eyes: Perrl EOMI ENT: TMs clear no rhinorrhea moist mucous membranes Neck: Supple no lymphadenopathy no JVD nontender CVS: Regular rate rhythm no murmurs normal S1-S2 Respiratory: No distress clear to auscultation bilaterally chest nontender Abdomen: Soft nontender nondistended normal bowel sounds no masses Back: Nontender Extremity: Nontender no edema Skin: Normal color no rash Neuro: alert orientated ?3 CN II-XII intact normal strength sensation reflexes gait cerebellar Test Results: EKG showed a sinus rhythm at a rate of 75 unchanged from prior. Basic labs showed glucose 194 troponin negative urinalysis normal. White count is normal. Emergency Department Course and Treatment: Patient received Zofran. He has been sleeping for several hours. He awakes and tells me he is thirsty would like a Sprite 0 or a Coke. I do not again find anything focal on exam, there are no abnormal vital signs, has normal labs, and very vague complaints. He has been sleeping since his arrival here. He will be discharged. Impression: 1. Generalized malaise 2. Nausea This note was generated with [employer] dictation software. It may contain incorrect words, spelling, and punctuation that were not noted in review of the chart prior to signing ED Disposition - Plan for ED Patient: Disposition: Home or Assisted Living Instructions: WEAKNESS, Unk Cause Prescriptions: Ondansetron [Zofran Odt] 4 mg PO Q8H PRN PRN #10 tab PRN Reason: Nausea Prescription Printed Referrals: Sushant Fernandez MD [Primary Care Provider] - 3-5 Days
[2019-05-25 14:06] VITALS: RESP 18; O2SAT 98
== END 2019-05-25 14:07 | disposition home or self-care (01) ==
PROVIDERS: Emergency Provider Emergency Medicine; Family Provider Family Medicine; PCP Family Medicine
DX: R11.0 Nausea (principal); R53.81 Other malaise; E11.9 Type 2 diabetes mellitus without complications; Z79.4 Long term (current) use of insulin; Z79.84 Long term (current) use of oral hypoglycemic drugs; Z79.899 Other long term (current) drug therapy
CPT/HCPCS: 80053; 81001; 82962; 84484; 85025; 93005; 99281; 99282; 99284; A4216

== ENCOUNTER 2019-06-05 04:36 | Emergency (ER) | payer MEDICAID, SELFPAY ==
[2019-06-05 04:36] VITALS: BP 138/93; PULSE 67; RESP 22; TEMP 36.8; O2SAT 94; BMI 28.1
--- NOTE | 2019-06-05 04:42 | RAD_ITS ---
STUDY: X-RAY CHEST REASON FOR EXAM: Male, 59 years old. Pain TECHNIQUE: Single AP portable view of the chest. COMPARISON: None. FINDINGS: Subsegmental atelectases are noted in the right and left lung bases. There is no demonstrated pleural abnormality. Normal size heart. Normal mediastinum and marcie. Normal visualized pulmonary arteries. Normal visualized aortic arch and descending thoracic aorta. Normal visualized thoracic spine. Normal visualized ribs, clavicles, and shoulders. There is no demonstrated abnormality of the visualized soft tissue structures of the upper abdomen. RAD/Chest 1 View (Portable) IMPRESSION: No demonstrated acute cardiopulmonary process. Electronically Signed: Dina Tsang, at 6:07 EDT Tel , Service support ,
--- NOTE | 2019-06-05 04:42 | EKG12_ITS ---
Test Reason : CP Blood Pressure : / mmHG Vent. Rate : 066 BPM Atrial Rate : 066 BPM P-R Int : 170 ms QRS Dur : 102 ms QT Int : 448 ms P-R-T Axes : 061 -49 022 degrees QTc Int : 469 ms Normal sinus rhythm Incomplete right bundle branch block Left anterior fascicular block Abnormal ECG Confirmed by LUIS M RENEE ([id number]), map editor RAPHAEL GRAHAM ([id number]) on 06/06/2019 3:09:27 PM Referred By: Confirmed By:LUIS M RENEE
[2019-06-05 04:45] VITALS: O2SAT 95
[2019-06-05 04:58] LABS: Absolute Lymphocyte Count 1.67 X10^3/uL (0.83-4.51); Absolute Neutrophil Count 3.6 X10^3/uL (2.0-7.7); Basophil# 0.03 X10^3/uL; Basophil% 0.5 % (0-1); Eosinophil# 0.18 X10^3/uL; Hematocrit 40.8 % (40-54); Hemoglobin 14.3 g/dL (13.0-16.5); Lymphocyte # 1.67 X10^3/ul (4.0); Lymphocyte % 28.1 % (19-41); Mean Corpuscular Hgb 28.9 pg (27.0-32.0); Mean Corpuscular Volume 82.6 fL (80-94); Mean Platelet Vol. 9.4 fl (6.2-12.0); Monocyte# 0.43 X10^3/uL; Monocyte% 7.2 % (0-10); NRBC Flagged by Analyzer 0 % (0-5); Neutrophil # 3.62 X10^3/uL (2.7-7.7); Platelet Count 181 K/mm3 (150-450); RBC Distribution Width SD 38.6 fl (35.1-43.9); Red Blood Count 4.94 M/mm3 (4.6-6.2); White Blood Count 5.9 K/mm3 (4.4-11.0)
--- NOTE | 2019-06-05 05:09 | ED.VISSUMM ---
- ER Visit Summary Date of Service: 06/05/19 Chief Complaint: Chest pain History of Present Illness: The patient is a 59 M presenting with chest pain. He states this woke him from sleep at 4 AM. Pain has been constant sharp pain for the past 1 hour. He has associated shortness of breath and cough. He denies fever. He denies abdominal pain, nausea, vomiting. He has a history of diabetes, hypertension, hypercholesterolemia. He had a stress test in April 2019 which was normal. He denies PE/DVT risk factors. He is not a smoker. Physical Examination: Vitals are stable. Patient is afebrile. Alert no acute distress. HEENT exam is unremarkable. Neck is supple. Lungs are clear and equal bilaterally. Chest tenderness to palpation with no crepitus Heart is regular rate and rhythm. Abdomen is soft nontender nondistended. Extremities are unremarkable. Skin is warm and dry. No focal neurologic deficit. Remainder of exam is unremarkable. Emergency Department Course and Treatment: Patient was given aspirin on arrival. He was given morphine, Zofran IV. EKG is sinus rhythm rate of 66 with no acute ischemic changes. Chest x-ray shows no acute process. CBC, chemistries unremarkable other than potassium 3.2, glucose 378. Lipase is normal. Troponin is negative. D-dimer normal. Delta troponin is ordered and will be checked out to the oncoming physician. Disposition: Pending Impression: Chest pain This note was generated with [employer] dictation software. It may contain incorrect words, spelling, and punctuation that were not noted in review of the chart prior to signing ED Disposition - Plan for ED Patient: Instructions: CHEST PAIN, Uncertain Cause Referrals: Sushant Fernandez MD [Primary Care Provider] -
[2019-06-05 05:12] LABS: Anion Gap 7 (5-15); BUN 6 mg/dL (7-18); BUN/Creat Ratio 7.9 RATIO (10-20); Calcium,Total 7.6 mg/dL (8.5-10.1); Chloride 111 mmol/L (98-107); Creatinine, Serum 0.76 mg/dL (0.70-1.30); EST Glomerular Filtration Rate 112 mL/min (>60); Est Glom Filt Rate - Afr Amer 135 mL/min (>60); Estimated Creatinine Clearance 131.89 ml/min; Glucose 378 mg/dL (74-106); Lipase 139 U/L (73-393); Potassium 3.2 mmol/L (3.5-5.1); Sodium Level 142 mmol/L (136-145)
[2019-06-05] MEDS: Ondansetron 4 MG/2 ML Vial IV (05:26)
[2019-06-05] MEDS: Morphine 4 MG/ML Syringe IV (05:26)
[2019-06-05 05:36] LABS: D-Dimer Quantitative (DVT/PE) 0.31 FEU/ug/m (0.27-0.49)
[2019-06-05 06:04] VITALS: BP 129/88; PULSE 63; RESP 17; O2SAT 94
--- NOTE | 2019-06-05 07:46 | ED.DEP ---
ED Disposition - Plan for ED Patient: Instructions: CHEST PAIN, Uncertain Cause Referrals: Sushant Fernandez MD [Primary Care Provider] -
[2019-06-05 08:21] VITALS: BP 119/84; PULSE 61; RESP 18; O2SAT 100
[2019-06-05 09:39] VITALS: BP 118/88; PULSE 68; RESP 18; O2SAT 99
== END 2019-06-05 09:40 | disposition home or self-care (01) ==
LOC: ED 05:49
PROVIDERS: Emergency Provider Emergency Medicine; Family Provider Family Medicine; PCP Family Medicine
DX: R07.9 Chest pain, unspecified (principal); I25.10 Atherosclerotic heart disease of native coronary artery without angina pectoris; I10 Essential (primary) hypertension; E11.9 Type 2 diabetes mellitus without complications; E78.00 Pure hypercholesterolemia, unspecified; Z79.82 Long term (current) use of aspirin; Z79.4 Long term (current) use of insulin; Z79.84 Long term (current) use of oral hypoglycemic drugs; Z79.899 Other long term (current) drug therapy
CPT/HCPCS: 71045; 80048; 83690; 84484; 85025; 85379; 93005; 96374; 96375; 99285; A4216; J2405

== ENCOUNTER 2019-08-13 14:22 | Emergency (ER) | payer MEDICAID, SELFPAY ==
[2019-08-13 14:24] VITALS: BP 140/96; PULSE 95; RESP 22; TEMP 37.1; O2SAT 96; BMI 27.6
[2019-08-13 14:28] VITALS: PULSE 75
--- NOTE | 2019-08-13 14:34 | ED.RN ---
THIS NURSE ATTEMPTED TO CONTACT PT BROTHER IN LAW PER HIS REQUEST
--- NOTE | 2019-08-13 14:35 | EKG12_ITS ---
Test Reason : HYPERGLYCEMIC Blood Pressure : / mmHG Vent. Rate : 064 BPM Atrial Rate : 064 BPM P-R Int : 176 ms QRS Dur : 100 ms QT Int : 428 ms P-R-T Axes : 048 -32 -02 degrees QTc Int : 441 ms Sinus rhythm with Premature atrial complexes Left axis deviation R/S>1.0 in V1: consider lead placement, normal variant, early transition, posterior DE of indetermina te age Abnormal ECG Confirmed by CHRISTOPH TRACY, NAVEED ([id number]), editor magazine RAPHAEL GRAHAM ([id number]) on 08/15/2019 8:51:25 AM Referred By: YESICA Confirmed By:NAVEED HAWTHORNE MD
[2019-08-13 14:36] LABS: Bedside Glucose 433 mg/dL (70-110)
[2019-08-13 14:41] LABS: Absolute Lymphocyte Count 1.74 X10^3/uL (0.83-4.51); Absolute Neutrophil Count 4.2 X10^3/uL (2.0-7.7); Basophil# 0.03 X10^3/uL; Basophil% 0.5 % (0-1); Eosinophil# 0.15 X10^3/uL; Eosinophils% 2.3 % (0-5); Hematocrit 41.1 % (40-54); Hemoglobin 14.7 g/dL (13.0-16.5); Lymphocyte # 1.74 X10^3/ul (4.0); Lymphocyte % 26.6 % (19-41); Mean Corp Hgb Conc 35.8 g/dL (32-36); Mean Corpuscular Hgb 28.8 pg (27.0-32.0); Mean Corpuscular Volume 80.6 fL (80-94); Mean Platelet Vol. 9.5 fl (6.2-12.0); Monocyte# 0.41 X10^3/uL; Monocyte% 6.3 % (0-10); NRBC Flagged by Analyzer 0 % (0-5); Neutrophil # 4.18 X10^3/uL (2.7-7.7); Platelet Count 200 K/mm3 (150-450); RBC Distribution Width CV 12.4 % (11.6-14.6); RBC Distribution Width SD 35.8 fl (35.1-43.9); White Blood Count 6.5 K/mm3 (4.4-11.0)
[2019-08-13 15:05] LABS: Anion Gap 6 (5-15); BUN 9 mg/dL (7-18); BUN/Creat Ratio 10.1 RATIO (10-20); Calcium,Total 8.9 mg/dL (8.5-10.1); Chloride 101 mmol/L (98-107); EST Glomerular Filtration Rate 92 mL/min (>60); Est Glom Filt Rate - Afr Amer 112 mL/min (>60); Estimated Creatinine Clearance 111.38 ml/min; Glucose 439 mg/dL (74-106); Potassium 3.7 mmol/L (3.5-5.1); Sodium Level 134 mmol/L (136-145)
--- NOTE | 2019-08-13 15:09 | ED.VIS.GEN ---
History of Present Illness Chief Complaint: Hyperglycemia Detail of Chief Complaint: Polyuria, polydipsia, nocturia blood glucose 497 Onset: Yesterday Context: Sudden Onset Timing: Continuous Quality: Elevated blood sugar Location: Not applicable Current Severity: Moderate Maximum Severity: Moderate Worsened by: Unknown Relieved by: Nothing Associated Symptoms: No associated symptoms Narrative: Patient is a 59-year-old male with type 2 diabetes requiring insulin who presents with polyuria, polydipsia, nocturia and blurred vision. He states his glucometer read 497. He denies headache. He denies double vision. Denies ringing his ears or decreased hearing. Denies rhinorrhea, congestion or postnasal drainage. Denies sore throat or difficulty breathing. He denies chest pain. He denies cough or shortness of breath. He denies nausea, vomiting diarrhea. He denies dysuria or hematuria. He denies myalgias arthralgias. He denies neurologic symptoms. Prior similar symptoms: Yes Recent Illness/Hospitalization: No - Past Medical History (1) Pancreatitis Status: Acute (2) Coronary atherosclerosis of [place] coronary artery Status: Chronic (3) DM (diabetes mellitus) Status: Chronic (4) Essential hypertension Status: Chronic (5) Hypothyroidism Status: Chronic (6) Old myocardial infarction Status: Chronic Past Medical History - Allergies and Home Meds Allergies/Adverse Reactions: Allergies diphenhydramine HCl [From Benadryl] Allergy (Verified 08/13/19 14:26) Rash Penicillins Allergy (Verified 08/13/19 14:26) Rash venom-honey bee [bee venom (honey bee)] Allergy (Verified 08/13/19 14:26) Swelling Primary Care Physician: Sushant Fernandez MD [Primary Care Provider] - Prior records reviewed: Yes Surgical History: herniorrhaphy, total knee arthroplasty Lives: Alone Smoking Status: Never smoker Alcohol: None Drugs: None - Family History Paternal Family History: Reports: Pulmonary Disease - Father from emphysema Additional Family History: No heart disease Maternal Family History: Reports: Unknown Review of Systems General: Denies: Chills, Fever, Sweats Eyes: Reports: Blurred Vision - bilaterally. Denies: Visual changes - bilaterally, Diplopia ENT: Denies: Bilateral ear pain, Rhinorrhea, Sore throat Cardiovascular: Denies: Chest pain, Palpitations Respiratory: Denies: Dyspnea, Cough, Dyspnea on exertion Gastrointestinal: Denies: Abdominal pain, Nausea, Vomiting, Diarrhea, Melena, Hematochezia Genitourinary: Reports: Frequency. Denies: Dysuria, Hematuria Musculoskeletal: Denies: Back pain, Extremity Pain Skin: Denies: Rash, Wounds Neurological: Denies: Headache, Weakness, Numbness Endocrine: Reports: Polyuria, Polydipsia Physical Exam Vital Signs/Narrative: Vital Signs Temp Pulse Resp BP Pulse Ox 08/13/19 14:28 75 08/13/19 14:24 98.7 F 95 22 H 140/96 H 96 Inital Vital Signs reviewed: Yes General: Well nourished, Well developed, No Acute Distress Head: Normocephalic, Atraumatic Eyes: Perrl, EOMI ENT: Moist mucous membranes, No rhinorrhea, TM's clear Neck: Supple, Nontender Cardiovascular: Regular rate, Regular rhythm, No murmurs, Normal S1, Normal S2 Respiratory: No distress, CTA bilaterally, Chest nontender Abdomen: Soft, Nontender, Nondistended, Normal bowel sounds Back: Nontender, Normal Inspection. Negative for: CVA tenderness Extremities: Nontender, No edema Skin: Normal color, No rash Neurological: Alert, Oriented x3, Cranial nerves II-XII grossly intact, Normal Strength, Normal Sensation, Normal DTR Psychological: Normal affect, Normal Mood Diagnostic/Tx/Re-eval Laboratory Results 08/13/19 08/13/19 08/13/19 14:30 14:30 14:30 WBC 6.5 RBC 5.10 Hgb 14.7 Hct 41.1 MCV 80.6 MCH 28.8 MCHC 35.8 RDW Std Deviation 35.8 RDW Coeff of Manjinder 12.4 Plt Count 200 MPV 9.5 Immature Gran % (Auto) 0.300 Neut % (Auto) 64.0 Lymph % (Auto) 26.6 Island % (Auto) 6.3 Eos % (Auto) 2.3 Baso % (Auto) 0.5 Absolute Neuts (auto) 4.2 Absolute Lymphs (auto) 1.74 Nucleated RBC % 0 Sodium 134 L Potassium 3.7 Chloride 101 Carbon Dioxide 27.0 Anion Gap 6 BUN 9 Creatinine 0.90 Estim Creat Clear Calc 111.38 Est GFR (MDRD) Af Amer 112 Est GFR (MDRD) Non-Af 92 BUN/Creatinine Ratio 10.1 Glucose 439 H Calcium 8.9 Troponin I < 0.015 POC Glucose 433 H Blood sugar is elevated, 439. CO2 anion gap is normal. Electrolytes are normal. White count is normal. Troponin was normal. EKG revealed no acute ischemic changes. Patient was given IV fluids and subcu insulin. He states his metformin dose at night was discontinued. He was taking 2 tablets in the morning and 2 tablets at night. - Rhythm Strip Rhythm Strip: Sinus Rhythm Rate: 68 Ectopy: PAC(s) - EKG Initial EKG Interpretation: Sinus Rhythm - Sinus rhythm with premature atrial beat. Ventricular rate is 64. AR interval is 176 ms. QRS duration 100 ms. [place] to the left. There are no acute ischemic changes noted. - Medical Decision Making IV was established he received 1 L normal saline. Basic metabolic panel was obtained to assess glucose and CO2/anion gap. Since he has history of kidney injury will assess renal function as well. EKG was obtained to assess for acute cardiac ischemia as well as troponin. Patient states she is compliant. Will evaluate for metabolic/infectious etiology causing his hyperglycemia. ED Disposition - Plan for ED Patient: Disposition: Home or Assisted Living Diagnosis: Hyperglycemia due to type 2 diabetes mellitus Instructions: ED Diabetic Hyperglycemia Referrals: Sushant Fernandez MD [Primary Care Provider] - As soon as possible Additional Instructions: Recommend resuming dose of metformin at night. Take only 1 tablet not 2. Contact your physician for evaluation in 24 to 48 hours.
[2019-08-13] MEDS: 0.9% Normal Saline 1,000 ML 1000 ML IV (15:15)
[2019-08-13] MEDS: Insulin Lispro 100 UNIT/ML INSULN.PEN 10 UNIT SC (16:38)
[2019-08-13 16:43] VITALS: BP 115/71; PULSE 78; RESP 16; O2SAT 97
[2019-08-13 16:55] LABS: Bacteria 0 SEEN /hpf (None Seen); Mucous, Urine 0 SEEN /hpf (<or=2+)
[2019-08-13 17:03] LABS: Color, Urine Yellow (Yellow); Glucose, Dipstick 1000 mg/dl (Normal); Ketone-Dipstick Negative (Negative); Leukocyte Esterase-Dipstick 100 /ul (Negative); Nitrite-Dipstick Negative (Negative); Occult Blood-Urine Negative /ul (Negative); Protein-Dipstick Negative (Negative); Specific Gravity, Urine 1.015 (1.002-1.030); Urine Bilirubin Dipstick Negative (Negative); Urine Clarity Sl. Cloudy (Clear); Urine Urobilinogen Normal (Normal)
[2019-08-13 17:09] LABS: Red Blood Cells-Urine 0-5 SEEN /hpf (0-5); White Blood Cells 5-10 SEEN /hpf (0-5)
[2019-08-13 17:10] LABS: Squamous Epithelial Cells - UA 0-5 SEEN /hpf (0-5)
== END 2019-08-13 16:44 | disposition home or self-care (01) ==
PROVIDERS: Emergency Provider Emergency Medicine; Family Provider Family Medicine; PCP Family Medicine
DX: E11.65 Type 2 diabetes mellitus with hyperglycemia (principal); I25.10 Atherosclerotic heart disease of native coronary artery without angina pectoris; I25.2 Old myocardial infarction; I10 Essential (primary) hypertension; E03.9 Hypothyroidism, unspecified; Z79.82 Long term (current) use of aspirin; Z79.4 Long term (current) use of insulin; Z79.84 Long term (current) use of oral hypoglycemic drugs; Z79.899 Other long term (current) drug therapy
CPT/HCPCS: 80048; 81001; 82962; 84484; 85025; 93005; 96360; 99285; J7030

== ENCOUNTER 2019-08-14 03:55 | Emergency (ER) | payer MEDICAID, SELFPAY ==
[2019-08-13 14:24] VITALS: BMI 27.6
[2019-08-14 03:57] VITALS: BP 145/76; PULSE 78; RESP 16; TEMP 36.8; O2SAT 93; BMI 28.2
--- NOTE | 2019-08-14 04:35 | ED.VIS.GEN ---
History of Present Illness Chief Complaint: Hyperglycemia Informant: Patient Narrative: Patient was seen here earlier, in the evening for hyperglycemia. His metformin dose was recently decreased. He was seen here and had a fairly unremarkable work-up aside from chronic kidney disease, and states he continues to feel malaised, with hyperglycemia, wanting help getting his blood sugar down. States is still in the 400s. Denies any new symptoms, and states his nausea is gone. Was SOB with lying flat earlier, but denies that now. 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 Past Medical History - Allergies and Home Meds Allergies/Adverse Reactions: Allergies diphenhydramine HCl [From Benadryl] Allergy (Verified 08/14/19 03:59) Rash Penicillins Allergy (Verified 08/14/19 03:59) Rash venom-honey bee [bee venom (honey bee)] Allergy (Verified 08/14/19 03:59) Swelling Primary Care Physician: Sushant Fernandez MD [Primary Care Provider] - Surgical History: herniorrhaphy, total knee arthroplasty Smoking Status: Never smoker - Family History Paternal Family History: Reports: Pulmonary Disease - Father from emphysema Additional Family History: No heart disease Maternal Family History: Reports: Unknown Review of Systems General: Reports: Malaise. Denies: Chills, Fever, Sweats Eyes: Denies: Visual changes - bilaterally, Diplopia ENT: Denies: Rhinorrhea, Sore throat Cardiovascular: Denies: Chest pain, Palpitations Respiratory: Reports: Dyspnea, Cough. Denies: Sputum Gastrointestinal: Denies: Abdominal pain, Nausea, Vomiting, Diarrhea, Melena, Hematochezia Genitourinary: Denies: Dysuria, Hematuria, Frequency Musculoskeletal: Denies: Back pain, Extremity Pain Skin: Denies: Rash, Wounds Neurological: Denies: Headache, Weakness, Numbness Endocrine: Reports: Polydipsia. Denies: Polyuria Physical Exam Vital Signs/Narrative: Vital Signs Temp Pulse Resp BP Pulse Ox 08/14/19 03:57 98.2 F 78 16 145/76 H 93 Inital Vital Signs reviewed: Yes General: Well nourished, Well developed, No Acute Distress Head: Normocephalic, Atraumatic Eyes: Perrl, EOMI ENT: Moist mucous membranes, No rhinorrhea, TM's clear. Negative for: Nasal congestion, Sinus tenderness Neck: Supple, Nontender, No lymphadenopathy Cardiovascular: Regular rate, Regular rhythm, No murmurs Respiratory: No distress, CTA bilaterally, Chest nontender Abdomen: Soft, Nontender, Nondistended, Normal bowel sounds Back: Nontender, Normal Inspection Extremities: Nontender, No edema Skin: Normal color, No rash, No Trauma Neurological: Alert, Oriented x3, Cranial nerves II-XII grossly intact, Normal Strength, Normal Sensation Psychological: Normal affect, Normal Mood Diagnostic/Tx/Re-eval Impressions Chest X-Ray 08/14/19 07:04 IMPRESSION: No acute cardiopulmonary disease. Electronically Signed: Fede Weeks MD at 7:39 EDT , Service support , 08/14/19 07:04 CXR [Chest PA and Lateral] [RAD] Stat Laboratory Results 08/14/19 08/14/19 08/14/19 04:52 05:37 06:46 POC Glucose 451 H* 442 H 278 H - Medical Decision Making Patient was given 20 units of quick acting insulin subcutaneously, and a liter of fluid. I see no value in repeating all of his other blood work and work-up, but he indicates that he has had a nonproductive cough off and on and some trouble breathing. He is having no dyspnea here in the ER, sitting on the side of the bed drinking a diet cola and eating a snack. States he is still tired after we brought his blood sugar down to the 270s. Chest x-ray obtained and is negative for anything acute. I rechecked his blood sugar again and it is now higher in the 280s. I will give him another 20 units of insulin, we will check him in an hour or 2 and discharge him home when his blood sugar gets to the low 200s at least. ED Disposition - Plan for ED Patient: Disposition: Home or Assisted Living Diagnosis: Viral URI with cough, Hyperglycemia Instructions: ED Diabetic Hyperglycemia Referrals: Sushant Fernandez MD [Primary Care Provider] - 3-5 Days
[2019-08-14] MEDS: 0.9% Normal Saline 1,000 ML 999 ML IV (04:57)
[2019-08-14] MEDS: Insulin Lispro 100 UNIT/ML INSULN.PEN 20 UNIT SC ×2 (04:58→08:15)
[2019-08-14 05:06] LABS: Bedside Glucose 451 mg/dL (70-110)
[2019-08-14 05:41] LABS: Bedside Glucose 442 mg/dL (70-110)
[2019-08-14 06:51] LABS: Bedside Glucose 278 mg/dL (70-110)
--- NOTE | 2019-08-14 07:04 | RAD_ITS ---
STUDY: X-RAY CHEST REASON FOR EXAM: Male, 59 years old. Cough, shortness of breath. TECHNIQUE: PA and lateral chest. COMPARISON: June 05, 2019. FINDINGS: The lungs are clear and expanded. There is no demonstrated pleural abnormality. Mildly elevated right hemidiaphragm unchanged. Normal size heart. Normal mediastinum and marcie. Normal visualized pulmonary arteries. Normal visualized aortic arch and descending thoracic aorta. Normal visualized thoracic spine. Normal visualized ribs, clavicles, and shoulders. There is no demonstrated abnormality of the visualized soft tissue structures of the upper abdomen. RAD/Chest PA and Lateral IMPRESSION: No acute cardiopulmonary disease. Electronically Signed: Fede Weeks MD at 7:39 EDT , Service support ,
[2019-08-14 07:55] LABS: Bedside Glucose 281 mg/dL (70-110)
[2019-08-14 08:31] VITALS: RESP 18
[2019-08-14 09:15] LABS: Bedside Glucose 216 mg/dL (70-110)
== END 2019-08-14 09:23 | disposition home or self-care (01) ==
PROVIDERS: Emergency Provider Emergency Medicine; Family Provider Family Medicine; PCP Family Medicine
DX: E11.65 Type 2 diabetes mellitus with hyperglycemia (principal); J06.9 Acute upper respiratory infection, unspecified; Z79.4 Long term (current) use of insulin; Z79.84 Long term (current) use of oral hypoglycemic drugs; Z79.82 Long term (current) use of aspirin; Z79.899 Other long term (current) drug therapy
CPT/HCPCS: 71046; 82962; 96360; 96361; 99285; J7030; A4216

== ENCOUNTER 2019-09-04 00:10 | Emergency (ER) | payer MEDICAID, SELFPAY ==
[2019-09-04 00:11] VITALS: BP 147/95; PULSE 92; RESP 19; TEMP 36.6; O2SAT 95; BMI 27.6
[2019-09-04 00:14] VITALS: O2SAT 94
--- NOTE | 2019-09-04 00:28 | EKG12_ITS ---
Test Reason : SOB Blood Pressure : / mmHG Vent. Rate : 077 BPM Atrial Rate : 077 BPM P-R Int : 172 ms QRS Dur : 094 ms QT Int : 394 ms P-R-T Axes : 048 -44 018 degrees QTc Int : 445 ms Normal sinus rhythm Left axis deviation Nonspecific ST abnormality Poor R-Wave Progression Abnormal ECG Confirmed by CHRISTOPH TRACY, NAVEED ([id number]), video effects editor JADEN HERNANDEZ ([id number]) on 09/05/2019 11:12:57 AM Referred By: FREDDY Confirmed By:NAVEED HAWTHORNE MD
--- NOTE | 2019-09-04 00:28 | RAD_ITS ---
HISTORY: Cough EXAM: XR Chest 2 Views COMPARISON: August 14, 2019 FINDINGS: LINES/DEVICES: None. LUNGS: There are chronic interstitial changes. No pneumothorax. No consolidation or effusion. MEDIASTINUM AND CARDIOVASCULAR STRUCTURES: Cardiac silhouette not enlarged. Central airways and mediastinal contour are unremarkable. Athersclerotic plaque within the aortic arch. BONES AND SOFT TISSUES: Thoracic spondylosis. RAD/Chest PA and Lateral IMPRESSION: Chronic interestitial changes. No radiographic evidence of acute cardiopulmonary disease. at 0203 Reported and signed by: Carlos Ordonez MD Electronically Signed: Carlos Ordonez MD at 2:02 EST Tel , Service support ,
--- NOTE | 2019-09-04 00:29 | ED.VIS.GEN ---
History of Present Illness Chief Complaint: Shortness of Breath Narrative: Patient is a 59-year-old male who presents with shortness of breath. He has had 1 day of congestion rhinorrhea and productive cough. He began to feel short of breath while getting ready for bed about 1 hour ago. He is also had some pain in his left posterior shoulder and up towards the back of his neck this is worse with turning his neck moving his head moving his arm or torso. He has no chest pain. He denies fevers. He complains of mild nausea. No vomiting or diarrhea. He does have a history of diabetes, hypertension, hyperlipidemia, coronary disease. Past Medical History - Allergies and Home Meds Allergies/Adverse Reactions: Allergies diphenhydramine HCl [From Benadryl] Allergy (Verified 08/14/19 03:59) Rash Penicillins Allergy (Verified 08/14/19 03:59) Rash venom-honey bee [bee venom (honey bee)] Allergy (Verified 08/14/19 03:59) Swelling Primary Care Physician: Sushant Fernandez MD [Primary Care Provider] - Past Medical History: - - Diabetes, hypertension, hyperlipidemia, coronary disease Surgical History: herniorrhaphy, total knee arthroplasty Smoking Status: Never smoker - Family History Paternal Family History: Reports: Pulmonary Disease - Father from emphysema Additional Family History: No heart disease Maternal Family History: Reports: Unknown Review of Systems All systems negative except as indicated General: Denies: Fever ENT: Reports: Rhinorrhea Cardiovascular: Denies: Chest pain Respiratory: Reports: Dyspnea, Cough, Sputum Gastrointestinal: Reports: Nausea. Denies: Abdominal pain, Vomiting, Diarrhea Physical Exam Vital Signs/Narrative: Vital Signs Temp Pulse Resp BP Pulse Ox 09/04/19 00:11 97.8 F 92 19 H 147/95 H 95 Inital Vital Signs reviewed: Yes General: Well nourished, Well developed Head: Normocephalic, Atraumatic Eyes: Perrl, EOMI ENT: Moist mucous membranes Neck: Supple Cardiovascular: Regular rate, Regular rhythm Respiratory: No distress, CTA bilaterally Abdomen: Soft, Nontender Skin: Normal color Neurological: Alert Psychological: Normal affect Diagnostic/Tx/Re-eval Impressions Chest X-Ray 09/04/19 00:28 IMPRESSION: Chronic interestitial changes. No radiographic evidence of acute cardiopulmonary disease. at 0203 Reported and signed by: Carlos Ordonez MD Electronically Signed: Carlos Ordonez MD at 2:02 EST Tel , Service support , 09/04/19 00:28 Chest PA and Lateral [RAD] Stat Laboratory Results 09/04/19 09/04/19 00:59 00:59 WBC 6.5 RBC 5.02 Hgb 14.4 Hct 41.1 MCV 81.9 MCH 28.7 MCHC 35.0 RDW Std Deviation 37.9 RDW Coeff of Manjinder 12.9 Plt Count 182 MPV 9.4 Immature Gran % (Auto) 0.300 Neut % (Auto) 62.2 Lymph % (Auto) 27.9 [place] % (Auto) 6.4 Eos % (Auto) 2.6 Baso % (Auto) 0.6 Absolute Neuts (auto) 4.1 Absolute Lymphs (auto) 1.82 Nucleated RBC % 0 Sodium 137 Potassium 3.6 Chloride 101 Carbon Dioxide 29.0 Anion Gap 7 BUN 8 Creatinine 1.20 Estim Creat Clear Calc 83.53 Est GFR (MDRD) Af Amer 80 Est GFR (MDRD) Non-Af 66 BUN/Creatinine Ratio 6.7 L Glucose 565 H* Calcium 8.5 - Medical Decision Making EKG shows normal sinus rhythm at a rate of 77. Laboratory studies were notable for blood sugar of 565. Patient was given subcutaneous insulin and IV fluids and on reevaluation blood sugars 258. Patient resting comfortably on reevaluation. He has maintained stable vital signs. Given his infectious symptoms of productive cough I do feel his shortness of breath is most likely related to a viral bronchitis. His pain appears to be musculoskeletal in nature possibly related to cough. Patient advised on supportive care. He understands return for new or worsening symptoms. Patient discharged. ED Disposition - Plan for ED Patient: Disposition: Home or Assisted Living Diagnosis: Bronchitis, Hyperglycemia Instructions: BRONCHITIS, No Antibiotic (Adult), ED Diabetic Hyperglycemia Referrals: Sushant Fernandez MD [Primary Care Provider] -
[2019-09-04 00:56] VITALS: BP 138/86; PULSE 76; RESP 19; O2SAT 94
[2019-09-04] MEDS: 0.9% Normal Saline 1,000 ML 999 ML IV ×2 (00:57→01:52)
[2019-09-04 01:05] LABS: Absolute Lymphocyte Count 1.82 X10^3/uL (0.83-4.51); Absolute Neutrophil Count 4.1 X10^3/uL (2.0-7.7); Basophil# 0.04 X10^3/uL; Basophil% 0.6 % (0-1); Eosinophil# 0.17 X10^3/uL; Eosinophils% 2.6 % (0-5); Hematocrit 41.1 % (40-54); Hemoglobin 14.4 g/dL (13.0-16.5); Lymphocyte # 1.82 X10^3/ul (4.0); Lymphocyte % 27.9 % (19-41); Mean Corpuscular Hgb 28.7 pg (27.0-32.0); Mean Corpuscular Volume 81.9 fL (80-94); Mean Platelet Vol. 9.4 fl (6.2-12.0); Monocyte# 0.42 X10^3/uL; Monocyte% 6.4 % (0-10); NRBC Flagged by Analyzer 0 % (0-5); Neutrophil # 4.05 X10^3/uL (2.7-7.7); Neutrophil % 62.2 % (47-70); Platelet Count 182 K/mm3 (150-450); RBC Distribution Width CV 12.9 % (11.6-14.6); RBC Distribution Width SD 37.9 fl (35.1-43.9); Red Blood Count 5.02 M/mm3 (4.6-6.2); White Blood Count 6.5 K/mm3 (4.4-11.0)
--- NOTE | 2019-09-04 01:27 | ED.RN ---
LAB CALLED WITH CRITICAL LAB RESULTS. GLUCOSE 565. DR. HAYES MADE AWARE NO NEW ORDERS AT THIS TIME
[2019-09-04 01:28] LABS: Anion Gap 7 (5-15); BUN 8 mg/dL (7-18); BUN/Creat Ratio 6.7 RATIO (10-20); Calcium,Total 8.5 mg/dL (8.5-10.1); Chloride 101 mmol/L (98-107); EST Glomerular Filtration Rate 66 mL/min (>60); Est Glom Filt Rate - Afr Amer 80 mL/min (>60); Estimated Creatinine Clearance 83.53 ml/min; Glucose 565 mg/dL (74-106); Potassium 3.6 mmol/L (3.5-5.1); Sodium Level 137 mmol/L (136-145)
[2019-09-04] MEDS: Insulin Lispro 100 UNIT/ML INSULN.PEN 20 UNIT SC (01:53)
[2019-09-04 03:32] VITALS: BP 152/90; PULSE 74; RESP 16; O2SAT 95
[2019-09-04 03:36] LABS: Bedside Glucose 258 mg/dL (70-110)
[2019-09-04 03:48] VITALS: BP 142/86; PULSE 86; RESP 14; O2SAT 98
== END 2019-09-04 05:40 | disposition home or self-care (01) ==
PROVIDERS: Emergency Provider Emergency Medicine; Family Provider Family Medicine; PCP Family Medicine
DX: J40 Bronchitis, not specified as acute or chronic (principal); E11.65 Type 2 diabetes mellitus with hyperglycemia; E78.5 Hyperlipidemia, unspecified; I10 Essential (primary) hypertension; I25.10 Atherosclerotic heart disease of native coronary artery without angina pectoris; Z79.899 Other long term (current) drug therapy; Z79.82 Long term (current) use of aspirin; Z79.4 Long term (current) use of insulin
CPT/HCPCS: 71046; 80048; 82962; 85025; 93005; 96360; 96361; 99285; J7030; A4216

== ENCOUNTER 2019-09-25 08:01 | Emergency (ER) | payer MEDICAID, SELFPAY ==
[2019-09-25 08:01] VITALS: BP 152/97; PULSE 65; RESP 16; TEMP 36.4; O2SAT 96; BMI 26.9
--- NOTE | 2019-09-25 08:14 | ED.DCSUM_ITS ---
- ER Visit Summary Date of Service: 09/25/19 Chief Complaint: Right hip and thigh pain History of Present Illness: The patient is a 59 M who presents with pain in his right hip and thigh that began today. Patient states the pain is sharp. Patient states nothing makes it better or worse. Patient states he took ibuprofen today with no relief. Patient denies any trauma or injury. Patient denies any paresthesias or weakness. Patient states the pain does radiate into his low back as well. Patient denies any bowel or bladder changes. Patient denies any saddle anesthesia. Physical Examination: Vital signs are stable. Patient is afebrile. Patient is in no acute distress. Oral mucosa is pink and moist. Neck is supple. Trachea is midline. There is no JVD. Musculoskeletal exam reveals tenderness over the right hip area. There is no bony crepitance or step-off. There is good range of motion with internal and external rotation. There is no deformity noted. There is some mild tenderness of the right lower lumbar paraspinal muscles. There is no midline tenderness. There is no bony crepitance or step-off. There is good range of motion of the lumbar spine. Strength is 5/5 bilaterally in the upper and lower extremities. There are no sensory deficits noted. Posterior tibial pulses are equal bilaterally. Emergency Department Course and Treatment: Patient was advised that this is most likely muscular strain. Patient was instructed to use ice to the area. Patient was given a prescription for Mobic. Patient was instructed to follow-up with his primary care physician in 5 to 7 days. Patient understood and was agreeable with the plan. All questions were answered. Disposition: Discharge home Impression: Right hip strain This note was generated with [employer] dictation software. It may contain incorrect words, spelling, and punctuation that were not noted in review of the chart prior to signing ED Disposition - Plan for ED Patient: Disposition: Home or Assisted Living Diagnosis: Strain of right hip Instructions: Hip Strain Prescriptions: Meloxicam 15 mg PO DAILY PRN PRN #10 tab PRN Reason: Pain Transmission Status: Pending to [facility] Referrals: Sushant Fernandez MD [Primary Care Provider] - 5-7 Days Additional Instructions: Your prescription was transmitted electronically to [facility].
== END 2019-09-25 08:41 | disposition home or self-care (01) ==
LOC: ED 08:23
PROVIDERS: Emergency Provider Emergency Medicine; Family Provider Family Medicine; PCP Family Medicine
DX: S76.011A Strain of muscle, fascia and tendon of right hip, initial encounter (principal); X58.XXXA Exposure to other specified factors, initial encounter; Y93.9 Activity, unspecified; I10 Essential (primary) hypertension; E11.9 Type 2 diabetes mellitus without complications; Z79.82 Long term (current) use of aspirin; Z79.4 Long term (current) use of insulin; Z79.84 Long term (current) use of oral hypoglycemic drugs; Z79.899 Other long term (current) drug therapy
CPT/HCPCS: 99284

== ENCOUNTER 2019-10-05 05:50 | Emergency (ER) | payer MEDICAID, SELFPAY ==
[2019-10-05 05:51] VITALS: BP 160/99; PULSE 93; RESP 16; TEMP 36.6; O2SAT 93; BMI 27.8
--- NOTE | 2019-10-05 06:08 | RAD_ITS ---
STUDY: X-RAY - RIGHT KNEE REASON FOR EXAM: Male, 59 years old. Right-sided knee pain for months. TECHNIQUE: 4 view(s) of the knee. COMPARISON: Radiographs of the right leg dated June 22, 2016. FINDINGS: There are enthesophytes arising from the medial femoral condyle. The distal femoral access has a normal appearance. There is an enthesophyte off of the L3 patellar tendon insertion on the tibia. The proximal tibia and fibula otherwise have a normal appearance. Normal proximal tibiofibular articulation. Normal medial femorotibial compartment. Normal lateral femorotibial compartment. There is mild lateral subluxation of the patella in relationship to the trochlear groove. There is a bipartite patella. There is a soft tissue prominence in the suprapatellar region suggesting a small volume joint effusion. The soft tissue structures are unremarkable. RAD/Knee 4 or More Views IMPRESSION: 1. Degenerative changes of the knee. 2. Bipartite patella. Electronically Signed: Nancy Farr MD at 7:12 EST , Service support ,
--- NOTE | 2019-10-05 06:08 | EKG12_ITS ---
Test Reason : ABDOMINAL PAIN Blood Pressure : / mmHG Vent. Rate : 093 BPM Atrial Rate : 093 BPM P-R Int : 176 ms QRS Dur : 106 ms QT Int : 372 ms P-R-T Axes : 052 -42 038 degrees QTc Int : 462 ms Normal sinus rhythm Left axis deviation Incomplete right bundle branch block Abnormal ECG Confirmed by MITALI TRACY, TABBY ([id number]), film or videotape editor RAPHAEL GRAHAM ([id number]) on 10/07/2019 9:32:59 AM Referred By: PAMELA Confirmed By:KRISTIE JASMINE MD
--- NOTE | 2019-10-05 06:10 | ED.DCSUM_ITS ---
History of Present Illness Chief Complaint: Abd Pain Informant: Patient - Abdominal Pain/Flank Pain Onset: Hours - 6+ Context: Gradual Onset Timing: Continuous Quality: Aching Location: Epigastric - and supraumbilical Current Severity: Moderate Maximum Severity: Moderate Worsened by: Nothing Relieved by: Nothing - Nausea/Vomiting/Emesis GI Symptom: Nausea. Negative for: Vomiting - Diarrhea/Melena/Hematochezia GI Symptom: Negative for: Diarrhea, Melena, Hematochezia Associated Symptoms: Negative for: Dysuria, Frequency, Hematuria, Urgency Narrative: Pain does not radiate and has not migrated. Had a remote right inguinal herniorrhaphy, no other abdominal surgeries. Subjective fever and chills earlier. Additionally, patient states that his right knee has been hurting for about a month. It sometimes radiates up his thigh toward his lateral right hip area. Denies any neurologic symptoms distally or weakness. No bowel or bladder dysfunction. No true back pain. - Past Medical History (1) Pancreatitis Status: Resolved (2) Coronary atherosclerosis of [place] coronary artery Status: Chronic (3) DM (diabetes mellitus) Status: Chronic (4) Essential hypertension Status: Chronic (5) Hypothyroidism Status: Chronic (6) Old myocardial infarction Status: Chronic (7) Hiatal hernia Status: Chronic Past Medical History - Allergies and Home Meds Allergies/Adverse Reactions: Allergies diphenhydramine HCl [From Benadryl] Allergy (Verified 10/05/19 05:51) Rash Penicillins Allergy (Verified 10/05/19 05:51) Rash venom-honey bee [bee venom (honey bee)] Allergy (Verified 10/05/19 05:51) Swelling Primary Care Physician: Sushant Fernandez MD [Primary Care Provider] - Surgical History: herniorrhaphy, total knee arthroplasty Lives: Alone Smoking Status: Never smoker Alcohol: None Drugs: None - Family History Paternal Family History: Reports: Pulmonary Disease - Father from emphysema Additional Family History: No heart disease Maternal Family History: Reports: Unknown Review of Systems General: Reports: Chills, Fever, Malaise, Subjective. Denies: Sweats Eyes: Denies: Visual changes - bilaterally, Diplopia ENT: Denies: Rhinorrhea, Sore throat Cardiovascular: Denies: Chest pain, Palpitations Respiratory: Denies: Dyspnea, Cough, Dyspnea on exertion Gastrointestinal: Reports: Abdominal pain, Nausea. Denies: Vomiting, Diarrhea, Melena, Hematochezia Genitourinary: Denies: Dysuria, Hematuria, Frequency Musculoskeletal: Reports: Extremity Pain. Denies: Neck pain, Back pain, Swelling Skin: Denies: Rash, Wounds Neurological: Denies: Headache, Weakness, Numbness Physical Exam Vital Signs/Narrative: Vital Signs Temp Pulse Resp BP Pulse Ox 10/05/19 05:51 97.9 F 93 16 160/99 H 93 Inital Vital Signs reviewed: Yes General: Well nourished, Well developed, No Acute Distress Head: Normocephalic, Atraumatic Eyes: Perrl, EOMI ENT: Moist mucous membranes, No rhinorrhea Neck: Supple, Nontender Cardiovascular: Regular rate, Regular rhythm, No murmurs Respiratory: No distress, CTA bilaterally, Chest nontender Abdomen: Soft, Nondistended, Normal bowel sounds, Tender - supraumbilical/epigastric only. no hernias., - - trunkal obesity. Negative for: Guarding, Rebound tenderness, Pulsatile mass Back: Nontender, Normal Inspection. Negative for: CVA tenderness, Spinal tenderness Extremities: No edema, Tenderness - At focal area where patient is having right knee pain, at the proximal medial tibia. Nontender throughout the joint line. Nontender patella and tibial tuberosity. Nontender popliteal fossa. No calf tenderness or palpable cords. No varicose veins noted. Nontender at the probable location of the pes anserine bursa. All knee ligaments stable without significant pain on stressing. Full range of motion of the knee. No effusion. Extensor mechanism intact.. Negative for: Calf Tenderness Skin: Normal color, No rash, No Trauma Neurological: Alert, Oriented x3, Cranial nerves II-XII grossly intact, Normal Strength, Normal Sensation, Normal Gait Psychological: Normal affect, Normal Mood Diagnostic/Tx/Re-eval Impressions Knee X-Ray 10/05/19 06:08 IMPRESSION: 1. Degenerative changes of the knee. 2. Bipartite patella. Electronically Signed: Nancy Farr MD at 7:12 EST , Service support , 10/05/19 06:08 Knee 4 or More Views [RAD] Stat Laboratory Results 12/04/1810/05/19 10/05/19 06:00 06:00 06:15 WBC 7.9 RBC 5.68 Hgb 16.3 Hct 45.4 MCV 79.9 L MCH 28.7 MCHC 35.9 RDW Std Deviation 36.4 RDW Coeff of Manjinder 12.8 Plt Count 217 MPV 9.5 Immature Gran % (Auto) 0.400 Neut % (Auto) 65.6 Lymph % (Auto) 23.9 [place] % (Auto) 7.0 Eos % (Auto) 2.5 Baso % (Auto) 0.6 Absolute Neuts (auto) 5.1 Absolute Lymphs (auto) 1.88 Nucleated RBC % 0 Sodium 134 L Potassium 3.8 Chloride 100 Carbon Dioxide 28.0 Anion Gap 6 BUN 12 Creatinine 1.20 Estim Creat Clear Calc 83.53 Est GFR (MDRD) Af Amer 80 Est GFR (MDRD) Non-Af 66 BUN/Creatinine Ratio 10.0 Glucose 591 H* Calcium 9.5 Total Bilirubin 0.60 AST 10 L ALT 14 L Alkaline Phosphatase 95 Troponin I < 0.015 Total Protein 7.7 Albumin 4.0 Globulin 3.7 Albumin/Globulin Ratio 1.1 Lipase 224 Urine Color Straw Urine Clarity Sl. Cloudy Urine pH 6.0 Ur Specific [place] 1.010 Urine Protein 15 H Urine Glucose (UA) 1000 H Urine Ketones Negative Urine Occult Blood 250 H Urine Nitrite Negative Urine Bilirubin Negative Urine Urobilinogen Normal Ur Leukocyte Esterase 100 H Urine RBC 10-25 SEEN Urine WBC 0-5 SEEN Ur Squamous Epith Cells 0 SEEN Urine Bacteria 0 SEEN Urine Mucus 0 SEEN - Rhythm Strip Rhythm Strip: Sinus Rhythm Rate: 93 Ectopy: None - EKG Initial EKG Interpretation: Sinus Rhythm, No Acute Injury Pattern, - - left axis, otherwise normal EKG Prior: Unchanged - Medical Decision Making After IV fluids, Zofran, GI cocktail, Bentyl, patient states that he feels no better than when I got here. His labs show that his glucose is almost 600. This could be primarily why he is not feeling well, or could be a result. The other labs are very normal with the exception of microscopic hematuria. His liver enzymes and lipase are normal. His cardiac work-up is normal with an unchanged EKG. He is well-appearing and without any vomiting, drinking water and tolerating it, although he states he feels no better after Zofran. He is additionally ordered Phenergan, CT of the abdomen and pelvis, and an insulin drip. He is an insulin-dependent type 2 diabetic. Unless he has something that requires admission on his CT result, I suspect we will be able to discharge him after getting his blood sugar under control. ED Disposition - Plan for ED Patient: Disposition: Home or Assisted Living Diagnosis: Diffuse abdominal pain, Hyperglycemia due to type 2 diabetes mellitus, Gastritis Instructions: ABDOMINAL PAIN, Unkown Cause, (Male), ED Diabetic Hyperglycemia Prescriptions: proMETHazine tablet [Phenergan] 25 mg PO Q6H PRN PRN #10 tab PRN Reason: Nausea Prescription Printed Referrals: Sushant Fernandez MD [Primary Care Provider] - 3-5 Days
[2019-10-05 06:21] LABS: Absolute Lymphocyte Count 1.88 X10^3/uL (0.83-4.51); Absolute Neutrophil Count 5.1 X10^3/uL (2.0-7.7); Basophil# 0.05 X10^3/uL; Basophil% 0.6 % (0-1); Eosinophils% 2.5 % (0-5); Hematocrit 45.4 % (40-54); Hemoglobin 16.3 g/dL (13.0-16.5); Lymphocyte # 1.88 X10^3/ul (4.0); Lymphocyte % 23.9 % (19-41); Mean Corp Hgb Conc 35.9 g/dL (32-36); Mean Corpuscular Hgb 28.7 pg (27.0-32.0); Mean Corpuscular Volume 79.9 fL (80-94); Mean Platelet Vol. 9.5 fl (6.2-12.0); Monocyte# 0.55 X10^3/uL; NRBC Flagged by Analyzer 0 % (0-5); Neutrophil # 5.14 X10^3/uL (2.7-7.7); Neutrophil % 65.6 % (47-70); Platelet Count 217 K/mm3 (150-450); RBC Distribution Width CV 12.8 % (11.6-14.6); RBC Distribution Width SD 36.4 fl (35.1-43.9); Red Blood Count 5.68 M/mm3 (4.6-6.2); White Blood Count 7.9 K/mm3 (4.4-11.0)
[2019-10-05 06:23] LABS: Bacteria 0 SEEN /hpf (None Seen); Mucous, Urine 0 SEEN /hpf (<or=2+); Squamous Epithelial Cells - UA 0 SEEN /hpf (0-5)
[2019-10-05] MEDS: 0.9% Normal Saline 1,000 ML 125 ML IV (06:23)
[2019-10-05] MEDS: Ondansetron 4 MG/2 ML Vial IV (06:24)
[2019-10-05] MEDS: Dicyclomine 10 MG Capsule 20 MG PO (06:25)
[2019-10-05] MEDS: Mag Hydrox/Al Hydrox/Simeth 30 ML UDC PO (06:26)
[2019-10-05 06:29] LABS: Color, Urine Straw (Yellow); Glucose, Dipstick 1000 mg/dl (Normal); Ketone-Dipstick Negative (Negative); Leukocyte Esterase-Dipstick 100 /ul (Negative); Nitrite-Dipstick Negative (Negative); Occult Blood-Urine 250 /ul (Negative); Protein-Dipstick 15 mg/dl (Negative); Urine Bilirubin Dipstick Negative (Negative); Urine Clarity Sl. Cloudy (Clear); Urine Urobilinogen Normal (Normal)
[2019-10-05 06:32] LABS: Red Blood Cells-Urine 10-25 SEEN /hpf (0-5); White Blood Cells 0-5 SEEN /hpf (0-5)
[2019-10-05 06:43] LABS: ALB/GLOB Ratio 1.1 RATIO (0.9-2.4); AST(SGOT) 10 U/L (15-37); Alanine Aminotransfer ALT/SGPT 14 U/L (16-61); Alkaline Phosphatase 95 U/L (45-117); Anion Gap 6 (5-15); BUN 12 mg/dL (7-18); Calcium,Total 9.5 mg/dL (8.5-10.1); Chloride 100 mmol/L (98-107); EST Glomerular Filtration Rate 66 mL/min (>60); Est Glom Filt Rate - Afr Amer 80 mL/min (>60); Estimated Creatinine Clearance 83.53 ml/min; Globulin 3.7 g/dL (2.2-4.2); Glucose 591 mg/dL (74-106); Lipase 224 U/L (73-393); Potassium 3.8 mmol/L (3.5-5.1); Protein, Total 7.7 g/dL (6.4-8.2); Sodium Level 134 mmol/L (136-145)
--- NOTE | 2019-10-05 07:22 | CT_ITS ---
STUDY: CT ABDOMEN AND PELVIS WITHOUT CONTRAST REASON FOR EXAM: Male, 59 years old. Diffuse abdominal pain with nausea and vomiting. History of prior inguinal hernia repair. RADIATION DOSAGE (If Supplied By Facility): CTDIvol = ( 14.54 ) mGy, DLP = ( 884.01 ) mGycm TECHNIQUE: Transaxial images were obtained from the dome of the diaphragm to the symphysis pubis without oral contrast, and without intravenous contrast. Sagittal and coronal images were reconstructed. Individualized dose optimization techniques were used for this CT. COMPARISON: None. FINDINGS: Mild increased markings at the right lung base suggestive of atelectasis and/or scarring. The visualized portions of the heart are within normal limits. Normal liver. Normal gallbladder and extrahepatic biliary system. Normal spleen. Normal pancreas. Normal bilateral adrenal glands. Normal right kidney. Normal left kidney. Marked degree of the fluid distention of the stomach. Possible gastric outlet obstruction. Normal small intestine. Normal colon. The appendix is visualized and appears normal. Normal abdominal aorta. Normal inferior vena cava. There is borderline retroperitoneal lymphadenopathy with enlarged nodes no greater than 10mm in the short axis diameter. Mild degree of diffuse bladder wall thickening although the bladder is not completely distended at this time. There is a small umbilical hernia containing fat. Straightening of the normal lumbar lordosis. Disc space narrowing and degeneration at the L4-L5 and L5-S1 levels. CT/Abdomen/Pelvis without Cont IMPRESSION: Marked degree of the fluid distention of the stomach. Gastric outlet obstruction should be ruled out. Electronically Signed: Brent Gray, at 8:10 EST , Service support ,
[2019-10-05] MEDS: proMETHazine 25 MG/ML Syringe 12.5 MG IV (07:49)
[2019-10-05 08:01] LABS: Bedside Glucose > 500 mg/dL (70-110)
[2019-10-05 09:16] LABS: Bedside Glucose > 500 mg/dL (70-110)
[2019-10-05 10:30] LABS: Bedside Glucose 324 mg/dL (70-110)
--- NOTE | 2019-10-05 10:35 | RAD_ITS ---
STUDY: AIR-CONTRAST UPPER GI SERIES. REASON FOR EXAM: Male, 59 years old. Distended stomach. FLUOROSCOPY TIME (if supplied): ( 145 seconds ) minutes/seconds. 16 images were obtained. TECHNIQUE: The patient ingested barium. Multiple images of the esophagus and stomach were obtained. COMPARISON: None. FINDINGS: The esophagus unremarkable. There is no evidence of gastroesophageal reflux. No mass lesion is seen. There is dilatation of the stomach with residual food particles and fluid. Imaging was obtained up to 2 hours following the injection of contrast. Only a small amount of contrast is seen within the first portion of the duodenum. Obstruction at the level of the second portion of duodenum should be ruled out. RAD/Upper GI Series Only IMPRESSION: Obstruction of the second portion of the duodenum should be ruled out. Electronically Signed: Brent Gray, at 13:09 EST , Service support ,
[2019-10-05 11:15] LABS: Bedside Glucose 275 mg/dL (70-110)
[2019-10-05 11:55] LABS: Bedside Glucose 277 mg/dL (70-110)
[2019-10-05 14:43] VITALS: BP 142/80; PULSE 79; RESP 18; O2SAT 95
--- NOTE | 2019-10-05 14:51 | ED.RN ---
RN ATTEMPT TO CALL REPORT TO 7E AT [facility]. WAS ON HOLD FOR 5 MINUTES WITH NO SUCCESS. TRANSPORT HERE TO TAKE PATIENT AT THIS TIME.
--- NOTE | 2019-10-05 14:52 | ED.DCSUM_ITS ---
- ER Visit Summary Date of Service: 10/05/19 This patient was checked out to me by Dr. Head with a CT pending. This returned and showed a question of gastric outlet obstruction. Patient was discussed with Dr. Meadows who suggested doing an upper GI. This was obtained. Films were obtained 2 hours after the patient drank barium. The barium did not move past the first segment of the duodenum. Emergency Department Course and Treatment: Patient is rested comfortably while here. He refused an NG. Treatment Plan: Patient was discussed with Dr. Meadows. He has the patient be transferred to a tertiary care center as he needs to see a janitorial supervisor for the gastric outlet obstruction. Patient asked to go to [facility]. He will be transferred there for further evaluation and treatment. Disposition: Transferred in improved condition. Impression: 1. Gastric outlet obstruction. 2. Hyperglycemia. This note was generated with [employer] dictation software. It may contain incorrect words, spelling, and punctuation that were not noted in review of the chart prior to signing ED Disposition - Plan for ED Patient: Disposition: Home or Assisted Living Diagnosis: Diffuse abdominal pain, Hyperglycemia due to type 2 diabetes mellitus, Gastritis Instructions: ED Diabetic Hyperglycemia, ABDOMINAL PAIN, Unkown Cause, (Male) Prescriptions: proMETHazine tablet [Phenergan] 25 mg PO Q6H PRN PRN #10 tab PRN Reason: Nausea Prescription Printed Referrals: Sushant Fernandez MD [Primary Care Provider] - 3-5 Days
[2019-10-05 14:57] VITALS: BP 142/80; PULSE 79; RESP 18; O2SAT 95
--- NOTE | 2019-10-05 15:07 | ED.RN ---
RN REPORT GIVEN TO [facility] AT [address] [place] [address]. NO FURTHER QUESTIONS OR CONCERNS FROM HERE.
== END 2019-10-05 15:07 | disposition short-term general hospital (02) ==
PROVIDERS: Emergency Provider Emergency Medicine; Family Provider Family Medicine; PCP Family Medicine
DX: K31.1 Adult hypertrophic pyloric stenosis (principal); K29.70 Gastritis, unspecified, without bleeding; K44.9 Diaphragmatic hernia without obstruction or gangrene; E11.65 Type 2 diabetes mellitus with hyperglycemia; I25.10 Atherosclerotic heart disease of native coronary artery without angina pectoris; I25.2 Old myocardial infarction; I10 Essential (primary) hypertension; E03.9 Hypothyroidism, unspecified; Z79.4 Long term (current) use of insulin; Z79.84 Long term (current) use of oral hypoglycemic drugs; Z79.82 Long term (current) use of aspirin; Z79.899 Other long term (current) drug therapy
CPT/HCPCS: 73564; 74176; 74246; 80053; 81001; 82962; 83690; 84484; 85025; 93005; 96365; 96366; 96375; 99285; J7030; A4216; J2405

== ENCOUNTER 2019-10-16 13:32 | Emergency (ER) | payer MEDICAID, SELFPAY ==
[2019-10-16 13:32] VITALS: BP 156/94; PULSE 69; RESP 18; TEMP 36.8; O2SAT 96; BMI 26.6
--- NOTE | 2019-10-16 14:18 | CT_ITS ---
STUDY: CT BRAIN WITHOUT CONTRAST REASON FOR EXAM: Male, 59 years old. Headache. RADIATION DOSAGE (If Supplied By Facility): CTDIvol = ( 60.81 ) mGy, DLP = ( 1089.89 ) mGycm TECHNIQUE: Transaxial CT imaging of the brain was performed without administration of intravenous contrast material. Individualized dose optimization techniques were used for this CT. COMPARISON: Comparison is made with prior study dated July 12, 2017. FINDINGS: Normal soft tissue structures. Normal calvarium. Normal size ventricles and extra-axial spaces for the patient''s age. Normal white matter tracts of the cerebral hemispheres. There are small punctate calcifications of the basal ganglia which are seen in the aging brain as a normal variant. Normal brainstem. There is mild cerebellar atrophy. There is no intracranial hemorrhage. There are no findings of an acute ischemic infarction. Normal visualized paranasal sinuses. CT/Brain/Head without Contrast IMPRESSION: No acute amount is seen. Electronically Signed: Brent Gray, at 15:05 EST , Service support ,
--- NOTE | 2019-10-16 14:20 | EKG12_ITS ---
Test Reason : HEADACHE Blood Pressure : / mmHG Vent. Rate : 066 BPM Atrial Rate : 066 BPM P-R Int : 178 ms QRS Dur : 098 ms QT Int : 428 ms P-R-T Axes : 056 -48 019 degrees QTc Int : 448 ms Normal sinus rhythm Left anterior fascicular block Nonspecific ST abnormality Abnormal ECG Confirmed by MITALI TRACY, TABBY ([id number]), legal editor JADEN HERNANDEZ ([id number]) on 10/22/2019 11:49:15 AM Referred By: WENDY Confirmed By:KRISTIE JASMINE MD
--- NOTE | 2019-10-16 14:22 | ED.DCSUM_ITS ---
History of Present Illness Chief Complaint: Headache Onset: Today Context: Sudden Timing: Continuous Quality: Similar Prior Headaches, Throbbing Associated Symptoms: Nausea Narrative: Patient is a 59-year-old male with history of pancreatitis, DKA, insulin- dependent diabetes mellitus and coronary artery disease presenting with headache and nausea. Patient states he woke up this around 130 which is normal for him but had a headache. He states the headache woke him up from sleep. The headache is diffuse and throbbing in nature. He has associated photophobia. He states when he lays back he is nauseous. He denies any associated sharp abdominal pain but states his stomach does feel upset. He denies any fever or neck pain. He denies any chest pain or shortness of breath. He does note that he recently had bronchitis and has had a cough. He denies any urinary symptoms. He denies any other complaints at this time. Patient states he has had headaches in the past but usually not this severe. He states he came to the ER about a year ago for similar headache and was admitted. He does not remember details further than that. Past Medical History - Allergies and Home Meds Allergies/Adverse Reactions: Allergies diphenhydramine HCl [From Benadryl] Allergy (Verified 10/16/19 13:48) Rash Penicillins Allergy (Verified 10/16/19 13:48) Rash venom-honey bee [bee venom (honey bee)] Allergy (Verified 10/16/19 13:48) Swelling Primary Care Physician: Sushant Fernandez MD [Primary Care Provider] - Past Medical History: - - Diabetes mellitus, hypertension, hyperlipidemia, CAD, history of DKA Surgical History: herniorrhaphy, total knee arthroplasty Smoking Status: Current every day smoker - Family History Paternal Family History: Reports: Pulmonary Disease - Father from emphysema Additional Family History: No heart disease Maternal Family History: Reports: Unknown Review of Systems General: Denies: Chills, Fever, Sweats Eyes: Reports: - - Photophobia. Denies: Visual changes - bilaterally, Diplopia ENT: Denies: Rhinorrhea, Sore throat Cardiovascular: Denies: Chest pain, Palpitations Respiratory: Reports: Cough. Denies: Dyspnea, Dyspnea on exertion Gastrointestinal: Reports: Abdominal pain - Upset stomach, Nausea. Denies: Vomiting, Diarrhea, Melena, Hematochezia Genitourinary: Denies: Dysuria, Hematuria, Frequency Musculoskeletal: Denies: Back pain, Extremity Pain Skin: Denies: Rash, Wounds Neurological: Reports: Headache. Denies: Weakness, Numbness Physical Exam Vital Signs/Narrative: Vital Signs Temp Pulse Resp BP Pulse Ox 10/16/19 13:32 98.2 F 69 18 156/94 H 96 Inital Vital Signs reviewed: Yes General: Well nourished, Well developed Head: NC, AT Eyes: Perrl, EOMI ENT: Moist mucous membranes, No rhinorrhea, TM's clear - Ear canals are partially occluded with wax Neck: Supple, No Lymphadenopathy, No JVD, Nontender, No Meningismus Cardiovascular: Regular rate, Regular rhythm, No murmurs Respiratory: No distress, CTA bilaterally, Chest nontender Abdomen: Soft, Nontender, Nondistended, Normal bowel sounds Back: Nontender, Normal Inspection Extremities: Nontender, No edema Skin: Normal color, No rash Neuro: Alert, Oriented x3, Cranial nerves II-XII grossly intact, Normal Strength, Normal Sensation, Normal DTR, Normal Gait Psychological: Normal affect Diagnostic/Tx/Re-eval Chest X-Ray - ED: Read by ED Physician, Read by Radiologist, No Acute Disease Clinical Impression(s) from Imaging Studies Brain CT 10/16/19 14:18 IMPRESSION: No acute amount is seen. Electronically Signed: Brent Gray, at 15:05 EST , Service support , Chest X-Ray 10/16/19 14:45 IMPRESSION: No acute abnormality is seen. Electronically Signed: Brent Gray, at 15:07 EST , Service support , Laboratory Data 10/16/19 10/16/19 14:39 14:39 WBC 5.7 RBC 5.12 Hgb 14.7 Hct 41.2 MCV 80.5 MCH 28.7 MCHC 35.7 RDW Std Deviation 37.2 RDW Coeff of Manjinder 13.0 Plt Count 195 MPV 9.0 Immature Gran % (Auto) 0.400 Neut % (Auto) 66.7 Lymph % (Auto) 23.2 [place] % (Auto) 6.7 Eos % (Auto) 2.5 Baso % (Auto) 0.5 Absolute Neuts (auto) 3.8 Absolute Lymphs (auto) 1.31 Nucleated RBC % 0 Sodium 139 Potassium 3.5 Chloride 106 Carbon Dioxide 30.0 Anion Gap 3 L BUN 9 Creatinine 0.83 Estim Creat Clear Calc 120.77 Est GFR (MDRD) Af Amer 122 Est GFR (MDRD) Non-Af 101 BUN/Creatinine Ratio 10.9 Glucose 227 H Calcium 8.5 Total Bilirubin 0.70 AST 8 L ALT 13 L Alkaline Phosphatase 64 Troponin I < 0.015 Total Protein 6.6 Albumin 3.5 Globulin 3.1 Albumin/Globulin Ratio 1.1 Lipase 66 L - Rhythm Strip Rhythm Strip: Sinus Rhythm Rate: 66 Ectopy: None - EKG Initial EKG Interpretation: Sinus Rhythm, LAFB, - - Normal intervals Left axis deviation Normal ST segments No significant change compaired to prior EKG on 10/05/2019 - Medical Decision Making Patient is evaluated for headache. While he states he has a history of headache he is quite vague about this. It woke up from sleep about 1 hour prior to arrival. Patient is a normal neurologic exam. He is not having meningeal signs. I have a low suspicion for acute subarachnoid or intracranial bleed and I do not think an LP looking for xanthochromia is indicated based on the head CT. Patient is initially given IV fluids and Reglan for symptoms. On re evaluation he is now feeling jittery. He is been given benztropine as he is allergic to Benadryl. Once the CT is read as negative he is then given IV Toradol. On reevaluation he has improvement of his symptoms and feels much better. I did do screening labs because of patient's multiple comorbidities and did have abdominal pain associated with it. These were all grossly negative. Patient be discharged home. He will be given a prescription for Tylenol to take for his headaches as needed. He is instructed to follow-up with his primary care doctor. Patient is counseled on signs and symptoms requiring return to the emergency room. Patient verbalizes agreement and understand this plan. Patient discharged home in stable and improved condition. ED Disposition - Plan for ED Patient: Disposition: Home or Assisted Living Diagnosis: Headache Instructions: HEADACHE, Unspecified Prescriptions: Acetaminophen [Tylenol Extra Strength] 500 mg PO Q6H PRN PRN #20 tab PRN Reason: Pain/Inflammation Prescription Printed Referrals: Sushant Fernandez MD [Primary Care Provider] - Additional Instructions: Take Tylenol at home as needed for headache. Return to emergency room with any worsening symptoms. Drink plenty of water over the next few days.
[2019-10-16 14:26] VITALS: BP 138/92; PULSE 86; RESP 18; O2SAT 94
[2019-10-16] MEDS: 0.9% Normal Saline 1,000 ML 999 ML IV (14:37)
[2019-10-16] MEDS: Metoclopramide 10 MG/2 ML Vial IV (14:37)
--- NOTE | 2019-10-16 14:45 | RAD_ITS ---
STUDY: X-RAY CHEST REASON FOR EXAM: Male, 59 years old. Headaches. TECHNIQUE: PA and lateral views of the chest. COMPARISON: None. FINDINGS: Scattered calcified granulomas. Mild elevation of the anterior aspect of the right hemidiaphragm. There is no demonstrated pleural abnormality. Normal size heart. Normal mediastinum and marcie. Normal visualized pulmonary arteries. Normal visualized aortic arch and descending thoracic aorta. Normal visualized thoracic spine. Normal visualized ribs, clavicles, and shoulders. There is no demonstrated abnormality of the visualized soft tissue structures of the upper abdomen. RAD/Chest PA and Lateral IMPRESSION: No acute abnormality is seen. Electronically Signed: Brent Gray, at 15:07 EST , Service support ,
[2019-10-16 14:46] LABS: Absolute Lymphocyte Count 1.31 X10^3/uL (0.83-4.51); Absolute Neutrophil Count 3.8 X10^3/uL (2.0-7.7); Basophil# 0.03 X10^3/uL; Basophil% 0.5 % (0-1); Eosinophil# 0.14 X10^3/uL; Eosinophils% 2.5 % (0-5); Hematocrit 41.2 % (40-54); Hemoglobin 14.7 g/dL (13.0-16.5); Lymphocyte # 1.31 X10^3/ul (4.0); Lymphocyte % 23.2 % (19-41); Mean Corp Hgb Conc 35.7 g/dL (32-36); Mean Corpuscular Hgb 28.7 pg (27.0-32.0); Mean Corpuscular Volume 80.5 fL (80-94); Monocyte# 0.38 X10^3/uL; Monocyte% 6.7 % (0-10); NRBC Flagged by Analyzer 0 % (0-5); Neutrophil # 3.77 X10^3/uL (2.7-7.7); Neutrophil % 66.7 % (47-70); Platelet Count 195 K/mm3 (150-450); RBC Distribution Width SD 37.2 fl (35.1-43.9); Red Blood Count 5.12 M/mm3 (4.6-6.2); White Blood Count 5.7 K/mm3 (4.4-11.0)
[2019-10-16 15:02] LABS: ALB/GLOB Ratio 1.1 RATIO (0.9-2.4); AST(SGOT) 8 U/L (15-37); Alanine Aminotransfer ALT/SGPT 13 U/L (16-61); Albumin, Serum 3.5 g/dL (3.2-5.0); Alkaline Phosphatase 64 U/L (45-117); Anion Gap 3 (5-15); BUN 9 mg/dL (7-18); BUN/Creat Ratio 10.9 RATIO (10-20); Calcium,Total 8.5 mg/dL (8.5-10.1); Chloride 106 mmol/L (98-107); Creatinine, Serum 0.83 mg/dL (0.70-1.30); EST Glomerular Filtration Rate 101 mL/min (>60); Est Glom Filt Rate - Afr Amer 122 mL/min (>60); Estimated Creatinine Clearance 120.77 ml/min; Globulin 3.1 g/dL (2.2-4.2); Glucose 227 mg/dL (74-106); Lipase 66 U/L (73-393); Potassium 3.5 mmol/L (3.5-5.1); Protein, Total 6.6 g/dL (6.4-8.2); Sodium Level 139 mmol/L (136-145)
[2019-10-16] MEDS: Ketorolac 15 MG/ML Vial IV (15:55)
== END 2019-10-16 16:45 | disposition home or self-care (01) ==
PROVIDERS: Emergency Provider Emergency Medicine; Family Provider Family Medicine; PCP Family Medicine
DX: R51 Headache (principal); R11.0 Nausea; E11.9 Type 2 diabetes mellitus without complications; I25.10 Atherosclerotic heart disease of native coronary artery without angina pectoris; I10 Essential (primary) hypertension; E78.5 Hyperlipidemia, unspecified; F17.200 Nicotine dependence, unspecified, uncomplicated; Z79.82 Long term (current) use of aspirin; Z79.4 Long term (current) use of insulin; Z79.899 Other long term (current) drug therapy; Z88.8 Allergy status to other drugs, medicaments and biological substances; Z88.0 Allergy status to penicillin; Z87.19 Personal history of other diseases of the digestive system
CPT/HCPCS: 70450; 71046; 80053; 83690; 84484; 85025; 93005; 96361; 96374; 96375; 99285; J7030; A4216

== ENCOUNTER 2019-10-25 11:39 | Emergency (ER) | payer MEDICAID, SELFPAY ==
[2019-10-25 11:40] VITALS: BP 132/77; PULSE 78; RESP 16; TEMP 36.8; BMI 28.4
--- NOTE | 2019-10-25 12:07 | ED.DCSUM_ITS ---
- ER Visit Summary Date of Service: 10/25/19 Chief Complaint: Abdominal pain History of Present Illness: The patient is a 59 M history of is,, [place], cardiac stents. Patient had a prior hernia repair. States that he had a sandwich [employer] about half hour ago. Developed periumbilical abdominal discomfort. States his been having normal bowel movements. Normal urination. No dysuria. No hematuria. No diarrhea. No melena. States several weeks ago he was seen here and transferred to [facility] for possible bowel obstruction. They placed an NG tube and his symptoms resolved. He never needed surgery at that time. He denies any fever. Physical Examination: Middle-aged male no acute distress vital signs are stable and afebrile. H EENT exam unremarkable. Moist with membranes. Neck nontender no lymphadenopathy. Lungs clear to auscultation bilaterally. Heart regular rhythm no murmur rate about 80. Abdomen is soft. Nondistended. Normal bowel sounds. No peritoneal signs. No signs of obstruction. No masses. No pulsatile mass. He does have a ventral wall hernia that spontaneously resolves on its own. There is no signs of hernia obstruction, strangulation or incarceration. Patient moving all 4 extremities. No edema. Back nontender. Neurologically is awake alert with no focal motor deficits. Test Results: CBC normal white count of 6. Hemoglobin 14. Chemistries unremarkable potassium 3.4. Normal creatinine gap. Liver enzymes normal. Lipase normal. Emergency Department Course and Treatment: Patient states he is having 7 out of 10 pain. His abdomen is completely benign. Soft. Not distended. With normal bowel sounds. Labs will be obtained. At this time I do not think he needs any imaging. Treatment Plan: Repeat exam at 1615 patient's abdomen is completely benign. Soft and flat. Normal bowel sounds. No signs of obstruction. He is comfortable being discharged to home. All up with primary care physician return if worse. Disposition: Discharge Impression: Acute abdominal pain of uncertain etiology resolved This note was generated with [employer] dictation software. It may contain incorrect words, spelling, and punctuation that were not noted in review of the chart prior to signing ED Disposition - Plan for ED Patient: Referrals: Sushant Fernandez MD [Primary Care Provider] -
[2019-10-25] MEDS: Ondansetron 4 MG/2 ML Vial IV (13:05)
[2019-10-25 13:20] LABS: Absolute Neutrophil Count 3.9 X10^3/uL (2.0-7.7); Basophil# 0.03 X10^3/uL; Basophil% 0.5 % (0-1); Eosinophil# 0.17 X10^3/uL; Eosinophils% 2.7 % (0-5); Hematocrit 41.1 % (40-54); Hemoglobin 14.5 g/dL (13.0-16.5); Lymphocyte % 27.1 % (19-41); Mean Corp Hgb Conc 35.3 g/dL (32-36); Mean Corpuscular Hgb 28.8 pg (27.0-32.0); Mean Corpuscular Volume 81.7 fL (80-94); Mean Platelet Vol. 8.9 fl (6.2-12.0); Monocyte# 0.47 X10^3/uL; Monocyte% 7.5 % (0-10); NRBC Flagged by Analyzer 0 % (0-5); Neutrophil # 3.89 X10^3/uL (2.7-7.7); Platelet Count 193 K/mm3 (150-450); RBC Distribution Width CV 13.3 % (11.6-14.6); RBC Distribution Width SD 39.2 fl (35.1-43.9); Red Blood Count 5.03 M/mm3 (4.6-6.2); White Blood Count 6.3 K/mm3 (4.4-11.0)
[2019-10-25 13:37] LABS: AST(SGOT) 11 U/L (15-37); Alanine Aminotransfer ALT/SGPT 10 U/L (16-61); Albumin, Serum 3.6 g/dL (3.2-5.0); Alkaline Phosphatase 62 U/L (45-117); Anion Gap 6 (5-15); BUN 14 mg/dL (7-18); BUN/Creat Ratio 14.6 RATIO (10-20); Bilirubin, Direct 0.15 mg/dL (0.00-0.30); Chloride 106 mmol/L (98-107); Creatinine, Serum 0.96 mg/dL (0.70-1.30); EST Glomerular Filtration Rate 85 mL/min (>60); Est Glom Filt Rate - Afr Amer 103 mL/min (>60); Estimated Creatinine Clearance 104.41 ml/min; Globulin 3.1 g/dL (2.2-4.2); Glucose 235 mg/dL (74-106); Lipase 66 U/L (73-393); Potassium 3.4 mmol/L (3.5-5.1); Protein, Total 6.7 g/dL (6.4-8.2); Sodium Level 141 mmol/L (136-145)
[2019-10-25 14:38] VITALS: BP 142/87; PULSE 82; RESP 14; O2SAT 99
--- NOTE | 2019-10-25 16:22 | ED.DEP ---
ED Disposition - Plan for ED Patient: Disposition: Home or Assisted Living Instructions: ABDOMINAL PAIN, Unkown Cause, (Male) Referrals: Sushant Fernandez MD [Primary Care Provider] - As Needed Dakotah Morgan MD [STAFF PHYSICIAN] - 1-2 Weeks Additional Instructions: All your labs were normal today. As was your exam. You do have an abdominal wall hernia. You can follow-up with a local general surgeon but there is no signs of obstruction at this time. The surgeon Dr. Morgan can discuss treatment of your abdominal wall hernia.
[2019-10-25 16:30] VITALS: BP 133/98; PULSE 79; RESP 16; O2SAT 97
== END 2019-10-25 16:31 | disposition home or self-care (01) ==
PROVIDERS: Emergency Provider Emergency Medicine; Family Provider Family Medicine; PCP Family Medicine
DX: K43.9 Ventral hernia without obstruction or gangrene (principal); R10.33 Periumbilical pain; I25.2 Old myocardial infarction; E11.9 Type 2 diabetes mellitus without complications; I10 Essential (primary) hypertension; E78.00 Pure hypercholesterolemia, unspecified; Z95.5 Presence of coronary angioplasty implant and graft; Z79.4 Long term (current) use of insulin; Z79.82 Long term (current) use of aspirin; Z79.899 Other long term (current) drug therapy
CPT/HCPCS: 80048; 80076; 83690; 85025; 96374; 99283; J2405

== ENCOUNTER 2019-10-31 16:28 | Observation (INO) | payer MEDICAID, SELFPAY ==
[2019-10-31] VITALS (8 sets, daily range): BP systolic 136–156; BP diastolic 78–96; PULSE 67–81; RESP 16–21; TEMP 36.2–37.3; O2SAT 95–97; BMI 26.4; BMI 26.2
--- NOTE | 2019-10-31 16:52 | EKG12_ITS ---
Test Reason : CP Blood Pressure : / mmHG Vent. Rate : 068 BPM Atrial Rate : 068 BPM P-R Int : 168 ms QRS Dur : 100 ms QT Int : 420 ms P-R-T Axes : 057 -48 030 degrees QTc Int : 446 ms Normal sinus rhythm Incomplete right bundle branch block Left anterior fascicular block Abnormal ECG Confirmed by TESSA TRACY, MENDY ([id number]), editor greeting card MARCIANO PACE ([id number]) on 11/01/2019 10:34:29 AM Referred By: Marilee Santos Confirmed By:MENDY ZARATE MD
--- NOTE | 2019-10-31 16:55 | ED.DCSUM_ITS ---
- ER Visit Summary Date of Service: 10/31/19 Chief Complaint: Chest pain History of Present Illness: The patient is a 59 M with a history of diabetes, hypertension, hyperlipidemia, [place], and COPD. 2 stents placed in 295. He takes aspirin, Plavix, and he thinks he takes Coumadin. He had chest pain today that started about an hour and a half prior to my evaluation while he was watching TV. Associate with nausea, vomiting, sweats, shortness of breath. He had similar symptoms in the past with his prior [place]. Physical Examination: Afebrile and vital signs unremarkable. Alert and oriented. No acute distress. Skin appears normal without diaphoresis or pallor. Heart regular. Lungs clear. Abdomen soft. Extremities nontender. Test Results: EKG shows sinus rhythm at a rate of 68 with incomplete right bundle branch block pattern and left anterior fascicular block pattern. No sign of acute ischemia or infarction pattern. Laboratory studies and chest x-ray pending. Emergency Department Course and Treatment: EKG was done. Patient was placed on patient monitor. Treated with aspirin and nitro. Will reassess. Work-up was unremarkable. He had continued pain and required morphine for pain control. Given his ongoing pain and history hospitalist was contacted for further care. He did have a stress test in April which was unremarkable, however with his continued pain and symptoms and history I cannot recommend outpatient follow-up. Treatment Plan: As above Disposition: PCU observation Impression: 1. Chest pain This note was generated with [employer] dictation software. It may contain incorrect words, spelling, and punctuation that were not noted in review of the chart prior to signing ED Disposition - Plan for ED Patient: Referrals: Sushant Fernandez MD [Primary Care Provider] -
[2019-10-31 17:02] LABS: Absolute Lymphocyte Count 1.94 X10^3/uL (0.83-4.51); Absolute Neutrophil Count 4.6 X10^3/uL (2.0-7.7); Basophil# 0.04 X10^3/uL; Basophil% 0.6 % (0-1); Eosinophils% 2.8 % (0-5); Hematocrit 46.5 % (40-54); Hemoglobin 16.2 g/dL (13.0-16.5); Lymphocyte # 1.94 X10^3/ul (4.0); Lymphocyte % 26.8 % (19-41); Mean Corp Hgb Conc 34.8 g/dL (32-36); Mean Corpuscular Hgb 28.7 pg (27.0-32.0); Mean Corpuscular Volume 82.4 fL (80-94); Mean Platelet Vol. 9.1 fl (6.2-12.0); Monocyte# 0.48 X10^3/uL; Monocyte% 6.6 % (0-10); NRBC Flagged by Analyzer 0 % (0-5); Neutrophil # 4.57 X10^3/uL (2.7-7.7); Neutrophil % 62.9 % (47-70); Platelet Count 204 K/mm3 (150-450); RBC Distribution Width CV 13.2 % (11.6-14.6); RBC Distribution Width SD 39.2 fl (35.1-43.9); Red Blood Count 5.64 M/mm3 (4.6-6.2); White Blood Count 7.3 K/mm3 (4.4-11.0)
[2019-10-31] MEDS: Aspirin 81 MG TAB.CHEW 324 MG PO (17:02)
[2019-10-31] MEDS: Nitroglycerin SL (ED/IMG/CATH) 0.4 MG TABLET SUBLINGUAL (17:02)
[2019-10-31 17:11] LABS: Partial Thromboplast Time 27.5 Seconds (24.1-36.2)
[2019-10-31 17:20] LABS: Anion Gap 5 (5-15); BUN 11 mg/dL (7-18); BUN/Creat Ratio 10.2 RATIO (10-20); Calcium,Total 9.4 mg/dL (8.5-10.1); Chloride 103 mmol/L (98-107); Creatinine, Serum 1.08 mg/dL (0.70-1.30); EST Glomerular Filtration Rate 74 mL/min (>60); Est Glom Filt Rate - Afr Amer 90 mL/min (>60); Estimated Creatinine Clearance 92.81 ml/min; Glucose 247 mg/dL (74-106); Potassium 3.4 mmol/L (3.5-5.1); Sodium Level 139 mmol/L (136-145)
--- NOTE | 2019-10-31 17:28 | RAD_ITS ---
STUDY: X-RAY CHEST REASON FOR EXAM: Male, 59 years old. Chest pain. TECHNIQUE: Single frontal view of the chest. COMPARISON: October 16, 2019 FINDINGS: Low-volume inspiration with atelectasis at both bases, right greater than left. There is no demonstrated pleural abnormality. Normal size heart. Normal mediastinum and marcie. Normal visualized pulmonary arteries. Normal visualized aortic arch and descending thoracic aorta. Normal visualized thoracic spine. Normal visualized ribs, clavicles, and shoulders. There is no demonstrated abnormality of the visualized soft tissue structures of the upper abdomen. RAD/Chest 1 View (Portable) IMPRESSION: Bibasilar atelectasis with no acute finding. Electronically Signed: Nazario Muse MD at 17:39 EST , Service support ,
--- NOTE | 2019-10-31 17:45 | HP.PCM_ITS ---
Problem List (1) Chest pain Status: Acute Qualifiers: Chest pain type: unspecified Qualified Code(s): R07.9 - Chest pain, unspecified (2) HLD (hyperlipidemia) Status: Chronic Qualifiers: Hyperlipidemia type: unspecified Qualified Code(s): E78.5 - Hyperlipidemia, unspecified (3) History of ETOH abuse Status: Chronic (4) DM (diabetes mellitus) Status: Chronic Qualifiers: Diabetes mellitus type: type 2 Diabetes mellitus fci insulin use: with intermediate frame tender use Diabetes mellitus complication status: without complication Qualified Code(s): E11.9 - Type 2 diabetes mellitus without complications; Z79.4 - intermediate frame tender (current) use of insulin (5) Coronary atherosclerosis of [place] coronary artery Status: Chronic Qualifiers: [place] vs. transplanted heart: unspecified whether [place] or transplanted heart Associated angina: angina presence unspecified Qualified Code(s): I25.10 - Atherosclerotic heart disease of [place] coronary artery without angina pectoris (6) Essential hypertension Status: Chronic (7) Hypothyroidism Status: Chronic Qualifiers: Hypothyroidism type: unspecified Qualified Code(s): E03.9 - Hypothyroidism, unspecified History of Present Illness Date of Admission: 10/31/19 Chief Complaint: Chest pain The patient is a 59 y/o M w/ PMHx: Hx CO, CAD s/p PCI x 2, HTN, HLD, Diabetes mellitus type II, Hypothyroidism, GERD, OA, Former Heavy EtOH Use who presents to the [facility] ED on 10/31/19 with history of midsternal chest pain, scribed is a heavy pressure, rated 9-10 out of 10 in severity without radiation, started while watching TV ~ 1.5 hours prior to presentation with nausea, emesis x1, diaphoresis and dyspnea, similar to prior CO presentation. In the ED following aspirin and nitroglycerin he noted no relief but with morphine he now rates his pain 6 out of 10 although comfortable appearing. Work-up in the ED included T 99.2, heart rate 75, BP 152/96, respiratory rate 19, 96% on room air, unremarkable CBC, unremarkable coags, BMP with potassium 3.4, glucose 247, troponin less than 0.015, chest x-ray with bilateral bibasilar atelectasis with no acute finding otherwise, EKG was sinus rhythm with right bundle branch block and left anterior fascicular block with no acute evidence of ischemia. In the ED patient ministered morphine 4 mg IV x1, aspirin as well as nitroglycerin therapy. Patient with stress testing 04/2019 which was noted negative at that time. Patient noted improvement of pain w/ morphine, no change with ASA, NG. Past Medical History Past Medical History (Chronic Problems): Chronic Problems Hiatal hernia (Chronic) HLD (hyperlipidemia) (Chronic) History of ETOH abuse (Chronic) DM (diabetes mellitus) (Chronic) Coronary atherosclerosis of [place] coronary artery (Chronic) Essential hypertension (Chronic) Hypothyroidism (Chronic) Old myocardial infarction (Chronic) Hyperosmolar (nonketotic) coma (Chronic) Allergies diphenhydramine HCl [From Benadryl] Allergy (Verified 10/31/19 16:29) Rash Penicillins Allergy (Verified 10/31/19 16:29) Rash venom-honey bee [bee venom (honey bee)] Allergy (Verified 10/31/19 16:29) Swelling Home Medications: Ambulatory Orders Medication Instructions Recorded Atorvastatin Calcium [Lipitor] 40 mg PO QHS 08/16/13 Levothyroxine [Synthroid] 175 mcg PO DAILY 08/16/13 Lisinopril [Zestril] 10 mg PO DAILY 08/16/13 Aspirin E.C. [Ecotrin] 81 mg PO DAILY@0800 11/11/13 Omeprazole [Prilosec] 20 mg PO DAILY 11/11/13 Albuterol Inhaler [Ventolin Hfa] 1 - 2 puff INHALATION Q4H PRN PRN 05/17/17 #1 inhaler metFORMIN (XR) [Glucophage Xr] 500 mg PO DAILY 05/02/19 Canagliflozin [Invokana] 100 mg PO DAILY 05/11/19 Insulin Glargine [Lantus SoloStar 50 units SUBCUT BID pen 05/12/19 Pen] Insulin Lispro [Humalog KwikPen] 18 unit SUBCUT TIDAC insuln.pen 05/12/19 Ondansetron [Zofran Odt] 4 mg PO Q8H PRN PRN #10 tab 05/25/19 Meloxicam 15 mg PO DAILY PRN PRN #10 tab 09/25/19 Acetaminophen [Tylenol Extra 500 mg PO Q6H PRN PRN #20 tab 10/16/19 Strength] Surgical History: herniorrhaphy, total knee arthroplasty, - - 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 Psychiatric History: No pertinent psych hx Lives: Alone Smoking Status: Never smoker Tobacco Use: Non-smoker Alcohol: Sober - Patient sober since 1985. Drugs: None - *Family History Paternal History Items: Heart Disease - History of CO/CAD, unclear age., Pulmonary Disease - Father from emphysema Maternal History Items: Unknown - Patient notes that he does not know his maternal family history, she neatly following his secondary to hemorrhaging. Review of Systems Constitutional: Reports: Anorexia, Malaise, Weakness, Fatigue. Denies: Chills, Fever, Weight Change HEENT: Denies: Head Aches, Sinus Congestion, Sinus Drainage Cardiovascular: Reports: Chest Pain, Chest Pressure, Heaviness. Denies: Chest Tightness, Edema, Light Headedness, Orthopnea, Palpitations, Syncope Respiratory: Reports: Shortness of Breath. Denies: Cough, Shortness of breath at rest, Shortness of breath upon exertion, Sputum production, Wheezing Gastrointestinal: Reports: Nausea, Vomiting. Denies: Abdominal Pain Genitourinary: Denies: Dysuria Musculoskeletal: Reports: Joint Pain. Denies: Joint Tenderness Skin: Denies: Rash, Wounds Neurological: Denies: Numbness, Tingling, Focal weakness Psychiatric: Denies: Anxiety, Depression, Homicidal Ideations, Suicidal Ideations Hematologic/ Lymphatic: Reports: Easy Bruising, Easy Bleeding VTE Information - Inpt Only VTE Present on Admission: No VTE Mechan Device Prophylaxis: SCD's VTE Pharm Prophylaxis ordered?: Yes Subjective: Seated upright in the ED, mildly fatigued appearance, notes chest discomfort has improved but still present. Objective: Physical Examination: General: awake, alert, oriented x 3 and cooperative, seated upright in the ED bed in no apparent distress, chest pain has improved but still present, 6 out of 10 in severity he notes. Skin: normal color, turgor, no icterus, cyanosis except notable extremity as well as thorax scabbed regions, suspect picking although he notes he is frequently bitten by mosquitoes and fishes frequently. HEENT: AT/NC, EOMI, PERRLA, MMM, no carotid bruits or JVD noted. Lungs: CTA bilaterally, moderate effort, moderate decrease BL bases, no rales, ronchi or wheezing. Heart: Regular rate and rhythm; no gallop, rub audible. Abdomen: soft, NTTP, ND, normal BS, no HSM. Extremities: no cyanosis, clubbing, or edema. Neurological: patient awake, alert, oriented x 3; cognitive function intact; pupils equally reactive to light and accomodation; cranial nerves II-XII grossly normal, moving all 4 extremities, no focal deficits, strength moderately global decrease secondary to acute presentation and complaints. Psychiatric: affect appears moderately flat, occasionally irritable, no acute evidence of depressive or anxiety feelings. - Physical Exam Vitals/I&O's: Vital Signs Temp Pulse Resp BP Pulse Ox 99.2 F H 70 21 H 156/90 H 95 10/31/19 16:29 10/31/19 17:29 10/31/19 17:29 10/31/19 17:29 10/31/19 17:29 Oxygen Delivery Method Room Air Weight: 222 lb 7.143 oz Body Mass Index (BMI) 26.4 Finger Stick Blood Glucose 277 Laboratory Results 10/31/19 16:30: WBC 7.3, RBC 5.64, Hgb 16.2, Hct 46.5, MCV 82.4, MCH 28.7, MCHC 34.8, RDW Std Deviation 39.2, RDW Coeff of Manjinder 13.2, Plt Count 204, MPV 9.1, Immature Gran % (Auto) 0.300, Neut % (Auto) 62.9, Lymph % (Auto) 26.8, [place] % (Auto) 6.6, Eos % (Auto) 2.8, Baso % (Auto) 0.6, Absolute Neuts (auto) 4.6, Absolute Lymphs (auto) 1.94, Nucleated RBC % 0 10/31/19 16:30: Sodium 139, Potassium 3.4 L, Chloride 103, Carbon Dioxide 31.0, Anion Gap 5, BUN 11, Creatinine 1.08, Estim Creat Clear Calc 92.81, Est GFR (MDRD) Af Amer 90, Est GFR (MDRD) Non-Af 74, BUN/Creatinine Ratio 10.2, Glucose 247 H, Calcium 9.4, Troponin I < 0.015 10/31/19 16:30: PT 13.0, INR 1.0, APTT 27.5 Current Medications Nitroglycerin (Nitrostat) 0.4 mg SUBLINGUAL Q5M PRN PRN Reason: Chest pain Last Admin: 10/31/19 17:02 Dose: 0.4 mg Documented by: Assessment/Plan All Active Problems Abdominal pain (Acute) Pancreatitis (Resolved) Chest pain (Acute) Chest pain (Acute) TARYN (acute kidney injury) (Resolved) Dizziness (Resolved) Acute electrocardiogram changes (Resolved) The patient is a 59 y/o M w/ PMHx: Hx CO, CAD s/p PCI x 2, HTN, HLD, Diabetes mellitus type II, Hypothyroidism, GERD, OA, Former Heavy EtOH Use who presents to the [facility] ED on 10/31/19 with history of midsternal chest pain, scribed is a heavy pressure, rated 9-10 out of 10 in severity without radiation, started while watching TV ~ 1.5 hours prior to presentation with nausea, emesis x1, diaphoresis and dyspnea, similar to prior CO presentation. 1. Chest Pain: EKG in ED sinus rhythm with no acute evidence of ischemia as not ed, CXR w/ bibasilar atelectasis with no acute findings otherwise, initial trop normal x1. Will admit to PCU, place on a monitored bed to assure no acute myocardial infarction with serial cardiac enzymes and EKGs. Given recent cardiac stress testing will request Cardiology consultation. NPO after midnight. FLP in AM. Mag pending. ASA, NG, morphine. 2. Hypokalemia: Admission K+ 3.4, supplementation given, repeat level in AM. 3. CAD: s/p PCI x 2 1994, maintain on asa, plavix, statin, BP regimen, not on BB therapy. 4. Diabetes mellitus type II: Hold oral home regimen, continue home insulin regimen, ADA diet, accu checks w/ ISS, HgbA1c pending, nutrition consulted for education and teaching. 5. Hypertension: Continue home regimen including lisinopril, PRN hydralazine. 6. Hyperlipidemia: Continue home statin regimen. AM FLP. 7. GERD: Continue home PPI. 8. History of prior heavy alcohol abuse: Sober since 1985, encourage continuation. 9. DVT prophylaxis: SCDs, Lovenox. Code Visit OBSV E&M: 04289 Initial observation care L3
--- NOTE | 2019-10-31 18:00 | NURSING ---
PCU OBS CP WHITE
[2019-10-31] MEDS: Morphine 4 MG/ML Syringe IV (18:07)
--- NOTE | 2019-10-31 18:30 | EKG12_ITS ---
Test Reason : CP ADMIT Blood Pressure : / mmHG Vent. Rate : 067 BPM Atrial Rate : 067 BPM P-R Int : 168 ms QRS Dur : 098 ms QT Int : 418 ms P-R-T Axes : 050 -29 020 degrees QTc Int : 441 ms Normal sinus rhythm Normal ECG When compared with ECG of 31-OCT-2019 16:33, MANUAL COMPARISON REQUIRED, DATA IS UNCONFIRMED Confirmed by TESSA TRACY, MENDY ([id number]), editor producer JADEN HERNANDEZ ([id number]) on 11/06/2019 9:21:00 AM Referred By: Marilee Santos Confirmed By:MENDY ZARATE MD
[2019-10-31] MEDS: Enoxaparin 40 MG/0.4 ML Syringe SC (18:59)
[2019-10-31 19:00] LABS: Magnesium 1.6 mg/dL (1.6-2.6)
[2019-10-31 19:23] LABS: Hemoglobin A1c 9.2 % (4.2-6.3)
[2019-10-31 20:31] LABS: Bedside Glucose 246 mg/dL (70-110)
[2019-10-31] MEDS: Atorvastatin Calcium 40 MG Tablet PO (21:24)
[2019-10-31] MEDS: Insulin Lispro 100 UNIT/ML INSULN.PEN SC (21:24)
[2019-10-31] MEDS: 0.9% Normal Saline 1,000 ML 100 ML IV (23:43)
[2019-11-01 00:21] VITALS: PULSE 71
[2019-11-01 03:00] VITALS: PULSE 61; RESP 16
[2019-11-01 03:04] VITALS: PULSE 63
[2019-11-01 05:00] VITALS: BP 131/83; PULSE 66; RESP 17; TEMP 36.3; O2SAT 95
[2019-11-01] MEDS: Levothyroxine 175 MCG Tablet PO (05:18)
[2019-11-01] MEDS: Pantoprazole Sodium 20 MG Tablet PO (05:19)
[2019-11-01] MEDS: Clopidogrel Bisulfate 75 MG Tablet PO (05:19)
[2019-11-01] MEDS: Lisinopril 10 MG Tablet PO (05:19)
[2019-11-01] MEDS: Aspirin E.C. 81 MG Tablet PO (05:21)
[2019-11-01 05:41] LABS: Absolute Neutrophil Count 3.8 X10^3/uL (2.0-7.7); Basophil# 0.04 X10^3/uL; Basophil% 0.6 % (0-1); Eosinophil# 0.19 X10^3/uL; Hematocrit 41.7 % (40-54); Hemoglobin 14.6 g/dL (13.0-16.5); Mean Corpuscular Hgb 28.3 pg (27.0-32.0); Mean Corpuscular Volume 80.8 fL (80-94); Monocyte# 0.44 X10^3/uL; Monocyte% 6.9 % (0-10); NRBC Flagged by Analyzer 0 % (0-5); Neutrophil # 3.75 X10^3/uL (2.7-7.7); Neutrophil % 59.2 % (47-70); Platelet Count 174 K/mm3 (150-450); RBC Distribution Width CV 13.3 % (11.6-14.6); RBC Distribution Width SD 38.6 fl (35.1-43.9); Red Blood Count 5.16 M/mm3 (4.6-6.2); White Blood Count 6.3 K/mm3 (4.4-11.0)
[2019-11-01 05:49] LABS: International Normalized Ratio 1.1; Prothrombin Time (Protime)PT. 13.9 SECONDS (11.7-14.9)
[2019-11-01 05:50] LABS: Partial Thromboplast Time 29.4 Seconds (24.1-36.2)
--- NOTE | 2019-11-01 05:55 | STEWCON_ITS ---
Reason For Study: Chest Pain Stress Results Protocol: Dobutamine Stress Echo With Definity Maximum Predicted HR: 161 bpm Target HR: 137 bpm % Maximum Predicted HR: 91 % Heart Stage Duration Rate BP Comment (mm:ss) (bpm) No Chest Pain; Attempted [place] Protocol-Patient Walked 4 Min 21 Seconds With HR Only Reaching 113 BPM (70% Max Predicted); Quit D/T Baseline 70 130/85Fatigue; Converted to Dobutamine Stress Echo; 7 ML Diluted Definity Given DSE 10 MCG 3:18 79 112/65No Chest Pain DSE 20 MCG 3:00 118 121/68No Chest Pain DSE 30 MCG 3:26 146 111/54Mild Chest Pressure Recovery 88 107/67No Chest Pain Stress Duration: 9:44 mm:ss Maximum Stress HR: 146 bpm METS: 1 Baseline Echocardiogram Findings The estimated ejection fraction is 65 %. Stress Echo Wall motion Data Resting WM Intermediate WM Stress WM Resting Wall Motion Wall Motion Stress No regional wall motion No regional wall motion abnormalities noted. abnormalities noted. EKG Data The baseline ECG displays normal sinus rhythm. The patient was titrated from 10 mcg to a maximun of 30 mcg of dobutamine during the stress. The maximum heart rate attained was 146 beats per minute. This was 90% of maximum predicted heart rate. During dobutamine infusion, there were no ST or T wave changes noted to suggest ischemia. Doppler Measurements & Calculations TR max osito: 223.2 cm/sec TR max P.9 mmHg Interpretation Summary The estimated ejection fraction is 65 %. Normal, adequate, dobutamine echocardiogram. Negative for ischemia by EKG and echocardiographic criteria. Patient had very mild chest pain at peak infusion which is a nonspecific finding during dobutamine infusion. No associated wall motion abnormalities or EKGs during that time. Rare PVC noted. Test terminated due to the attainment target heart rate. Final LVEF is 75%. Patient initially tried a treadmill, but was unable to tolerate the treadmill and was switched to dobutamine. Decreased sensitivity due to poor echo windows requiring Definity agent. Patient tolerated procedure well. No complications. The study was technically difficult. Contrast injection was performed. Ordering Physician: Oscar Melissa Referring Physician: Adam Chávez Performed By: Lizette Hassan, ELAINE, RVT
--- NOTE | 2019-11-01 05:55 | EKG12_ITS ---
Test Reason : AM EKG Blood Pressure : / mmHG Vent. Rate : 062 BPM Atrial Rate : 062 BPM P-R Int : 168 ms QRS Dur : 098 ms QT Int : 436 ms P-R-T Axes : 059 -40 023 degrees QTc Int : 442 ms Normal sinus rhythm Left axis deviation Abnormal ECG When compared with ECG of 31-OCT-2019 19:14, MANUAL COMPARISON REQUIRED, DATA IS UNCONFIRMED Confirmed by TESSA TRACY, MENDY ([id number]), supervising editor news reel JADEN HERNANDEZ ([id number]) on 11/06/2019 9:09:16 AM Referred By: Marilee Santos Confirmed By:MENDY ZARATE MD
[2019-11-01 06:03] LABS: Anion Gap 6 (5-15); BUN 8 mg/dL (7-18); BUN/Creat Ratio 9.3 RATIO (10-20); Calcium,Total 8.4 mg/dL (8.5-10.1); Chloride 108 mmol/L (98-107); Cholesterol 171 mg/dL (200); Creatinine, Serum 0.86 mg/dL (0.70-1.30); EST Glomerular Filtration Rate 96 mL/min (>60); Est Glom Filt Rate - Afr Amer 116 mL/min (>60); Estimated Creatinine Clearance 116.56 ml/min; Glucose 218 mg/dL (74-106); High Density Lipoprotein 31 mg/dL; Sodium Level 141 mmol/L (136-145); Triglycerides 150 mg/dL; Very Low Density Lipoprotein 30 mg/dL (5-40)
[2019-11-01 06:40] LABS: Bedside Glucose 184 mg/dL (70-110)
[2019-11-01 06:49] VITALS: PULSE 66
[2019-11-01 09:21] VITALS: BP 132/89; PULSE 76; RESP 18; TEMP 36.3; O2SAT 99
[2019-11-01] MEDS: Insulin Lispro 100 UNIT/ML INSULN.PEN SC ×2 (09:30→11:52)
--- NOTE | 2019-11-01 09:42 | CASEMGMT ---
Insurance Review for IN-network facilities for [employer] if transfer is recommended is as follows: [facility] ([facility]), [facility], [facility], [facility], [facility], [facility], [facility], [facility]. Helene BROWNN RN CM
--- NOTE | 2019-11-01 10:45 | DCINST_ITS ---
- Discharge Diagnoses Current Active Problems: Current Active and Chronic Problems HLD (hyperlipidemia) (Chronic) History of ETOH abuse (Chronic) You will use the following diet at home:: Calorie/Carbohydrate Controlled (specify 1200, 1400, etc) - 1800 Your food should be the consistency of: Regular Your liquids should be the consistency of: Regular/Thin Discharge Activity: Return to Normal Activity Weight Bearing Status: Full weight bearing Allergies/Adverse Reactions: Allergies diphenhydramine HCl [From Benadryl] Allergy (Verified 10/31/19 16:29) Rash Penicillins Allergy (Verified 10/31/19 16:29) Rash venom-honey bee [bee venom (honey bee)] Allergy (Verified 10/31/19 16:29) Swelling Medications to take at Discharge Atorvastatin Calcium [Lipitor] 40 mg PO QHS 08/16/13 Levothyroxine [Synthroid] 175 mcg PO DAILY 08/16/13 Lisinopril [Zestril] 10 mg PO DAILY 08/16/13 Aspirin E.C. [Ecotrin] 81 mg PO DAILY@0800 11/11/13 Omeprazole [Prilosec] 20 mg PO DAILY 11/11/13 Albuterol Inhaler [Ventolin Hfa] 1 - 2 puff INHALATION Q4H PRN PRN #1 inhaler 05/17/17 metFORMIN (XR) [Glucophage Xr] 500 mg PO DAILY 05/02/19 Canagliflozin [Invokana] 100 mg PO DAILY 05/11/19 Insulin Glargine [Lantus SoloStar Pen] 50 units SUBCUT BID pen 05/12/19 Insulin Lispro [Humalog KwikPen] 18 unit SUBCUT TIDAC insuln.pen 05/12/19 Ondansetron [Zofran Odt] 4 mg PO Q8H PRN PRN #10 tab 05/25/19 Meloxicam 15 mg PO DAILY PRN PRN #10 tab 09/25/19 Acetaminophen [Tylenol] 500 mg PO Q6H PRN PRN #20 tab 10/16/19 Primary Care Physician: Sushant Fernandez MD [Primary Care Provider] - Please follow up with your Primary Care Physician in: within 2 weeks Test Results: Test results from this visit will be discussed in further detail at your follow- up appointment, if applicable.
--- NOTE | 2019-11-01 11:25 | PHA.DC.MR ---
Pharmacy Service has performed discharge medication reconciliation for this patient. Home Medications Atorvastatin Calcium [Lipitor] 40 mg PO QHS 08/16/13 Levothyroxine [Synthroid] 175 mcg PO DAILY 08/16/13 Lisinopril [Zestril] 10 mg PO DAILY 08/16/13 Aspirin E.C. [Ecotrin] 81 mg PO DAILY@0800 11/11/13 Omeprazole [Prilosec] 20 mg PO DAILY 11/11/13 Albuterol Inhaler [Ventolin Hfa] 1 - 2 puff INHALATION Q4H PRN PRN #1 inhaler 05/17/17 metFORMIN (XR) [Glucophage Xr] 500 mg PO DAILY 05/02/19 Canagliflozin [Invokana] 100 mg PO DAILY 05/11/19 Insulin Glargine [Lantus SoloStar Pen] 50 units SUBCUT BID pen 05/12/19 Insulin Lispro [Humalog KwikPen] 18 unit SUBCUT TIDAC insuln.pen 05/12/19 Ondansetron [Zofran Odt] 4 mg PO Q8H PRN PRN #10 tab 05/25/19 Meloxicam 15 mg PO DAILY PRN PRN #10 tab 09/25/19 Acetaminophen [Tylenol] 500 mg PO Q6H PRN PRN #20 tab 10/16/19 The patient's discharge medication list was reviewed for discrepancies and discrepancies were resolved.
[2019-11-01 11:36] LABS: Bedside Glucose 205 mg/dL (70-110)
[2019-11-01 11:40] LABS: Bedside Glucose 253 mg/dL (70-110)
[2019-11-01] MEDS: Insulin Lispro 100 UNIT/ML INSULN.PEN 18 UNIT SC (11:53)
--- NOTE | 2019-11-04 18:30 | PCM.DC.SUM ---
Discharge Date and Diagnosis Date of Admission: 10/31/19 Date of Discharge: 11/01/19 - Primary Discharge Diagnosis #1 musculoskeletal chest pain #2 type 2 diabetes #3 coronary artery disease #4 hypertension #5 hypokalemia - Secondary Discharge Diagnosis Chronic Problems Hiatal hernia (Chronic) HLD (hyperlipidemia) (Chronic) History of ETOH abuse (Chronic) DM (diabetes mellitus) (Chronic) Coronary atherosclerosis of [place] coronary artery (Chronic) Essential hypertension (Chronic) Hypothyroidism (Chronic) Old myocardial infarction (Chronic) Hyperosmolar (nonketotic) coma (Chronic) Hospital Course and Treatment Operations: None Procedures: - - Stress echocardiogram Summary of Care Provided: The patient is a 59 year old M who was seen in the emergency room at [facility] with a chief complaint of midsternal chest pain, work-up in the emergency room included an EKG which showed no evidence of ischemic changes, chest x-ray showed no findings other than bibasilar atelectasis, troponin was unremarkable. Patient was placed into observation status on PCU, cardiac isoenzymes were cycled and these remained negative. Patient was given supplemental potassium due to a potassium of 3.4. Patient underwent a stress echocardiogram on 11/01/2019 which was negative for reversible ischemia. On 11/01/2019, patient was seen and examined: On examination he appeared in good health and spirits. Vital signs as documented. Skin warm and dry and without overt rashes. Neck without JVD. Lungs clear. Heart exam notable for regular rhythm, normal sounds and absence of murmurs, rubs or gallops. Abdomen unremarkable and without evidence of organomegaly, masses, or abdominal aortic enlargement. Extremities nonedematous. Neuro: Cranial nerves II through XII are grossly intact, no focal motor deficits were noted, sensation to light touch and pinprick intact. Psych: Patient is alert and oriented x3, he does not appear anxious or depressed On 11/01/2019, patient was seen and examined felt to be in stable condition for discharge home. - Physical Exam Vitals/I&O's: Vital Signs Temp Pulse Resp BP Pulse Ox 97.4 F L 76 18 132/89 H 99 11/01/19 09:21 11/01/19 09:21 11/01/19 09:21 11/01/19 09:21 11/01/19 09:21 Oxygen Delivery Method Room Air Weight: 100.2 kg Body Mass Index (BMI) 26.2 Finger Stick Blood Glucose 277 Discharge Activity: Return to Normal Activity Weight Bearing Status: Full weight bearing Home Medications: Medications to take at Discharge Atorvastatin Calcium [Lipitor] 40 mg PO QHS 08/16/13 Levothyroxine [Synthroid] 175 mcg PO DAILY 08/16/13 Lisinopril [Zestril] 10 mg PO DAILY 08/16/13 Aspirin E.C. [Ecotrin] 81 mg PO DAILY@0800 11/11/13 Omeprazole [Prilosec] 20 mg PO DAILY 11/11/13 Albuterol Inhaler [Ventolin Hfa] 1 - 2 puff INHALATION Q4H PRN PRN #1 inhaler 05/17/17 metFORMIN (XR) [Glucophage Xr] 500 mg PO DAILY 05/02/19 Canagliflozin [Invokana] 100 mg PO DAILY 05/11/19 Insulin Glargine [Lantus SoloStar Pen] 50 units SUBCUT BID pen 05/12/19 Insulin Lispro [Humalog KwikPen] 18 unit SUBCUT TIDAC insuln.pen 05/12/19 Ondansetron [Zofran Odt] 4 mg PO Q8H PRN PRN #10 tab 05/25/19 Meloxicam 15 mg PO DAILY PRN PRN #10 tab 09/25/19 Acetaminophen [Tylenol] 500 mg PO Q6H PRN PRN #20 tab 10/16/19 Primary Care Physician: Sushant Fernandez MD [Primary Care Provider] - Please follow up with your Primary Care Physician in: within 2 weeks Please Follow Up With: Sushant Fernandez MD Disposition: Home Minutes spent on discharge:: 30 Patient Condition:: Stable Medical Necessity - Tobacco Use Smoking Status: Never smoker Tobacco Use: Non-smoker Meaningful Use Info Meaningful Use Diagnoses (Choose all that apply): None applicable Code Visit OBSV E&M: 47176 Observation care discharge
== END 2019-11-01 10:47 | disposition home or self-care (01) ==
LOC: ED 16:59 → PCU 20:31
PROVIDERS: Admitting Provider Family Medicine; Emergency Provider Emergency Medicine; Family Provider Family Medicine; PCP Family Medicine; Referring Provider Family Medicine; Visit Provider Internal Medicine
DX: R07.89 Other chest pain (principal); R11.2 Nausea with vomiting, unspecified; R06.02 Shortness of breath; E11.9 Type 2 diabetes mellitus without complications; I25.2 Old myocardial infarction; E78.5 Hyperlipidemia, unspecified; I25.10 Atherosclerotic heart disease of native coronary artery without angina pectoris; E03.9 Hypothyroidism, unspecified; I10 Essential (primary) hypertension; J44.9 Chronic obstructive pulmonary disease, unspecified; I44.4 Left anterior fascicular block; K21.9 Gastro-esophageal reflux disease without esophagitis; K44.9 Diaphragmatic hernia without obstruction or gangrene; M19.90 Unspecified osteoarthritis, unspecified site; E87.6 Hypokalemia; Z79.899 Other long term (current) drug therapy; Z79.82 Long term (current) use of aspirin; Z79.4 Long term (current) use of insulin; Z79.02 Long term (current) use of antithrombotics/antiplatelets
CPT/HCPCS: 36415; 71045; 80048; 80061; 82962; 83036; 83735; 84484; 85025; 85610; 85730; 93005; 93017; 93350; 96361; 96372; 96374; 97802; 99218; 99251; 99285; J7030; J7040; Q9957; A4216; C8928; G0378; G0463

== ENCOUNTER 2019-12-05 08:25 | Emergency (ER) | payer MEDICAID, SELFPAY ==
[2019-10-31 18:33] VITALS: BMI 26.2
[2019-12-05 08:26] VITALS: BP 167/103; PULSE 85; RESP 16; TEMP 36.7; O2SAT 96; BMI 26.3
[2019-12-05 08:30] VITALS: BP 142/105; PULSE 86; RESP 16; O2SAT 93
--- NOTE | 2019-12-05 08:47 | ED.VISSUMM ---
- ER Visit Summary Date of Service: 12/05/19 Chief Complaint: Nausea, vomiting diarrhea History of Present Illness: The patient is a 59 M history of type 2 diabetes, hypertension, CAD with one cardiac stent on Aggrenox. Patient states he had nausea vomiting diarrhea for approximately a week. Subjective fever and chills. No melena. No hematemesis. No abdominal pain. He denies any dysuria. Physical Examination: Middle-aged male no acute distress vital signs stable afebrile. He does not look septic or toxic. He does not look significantly dehydrated. HEENT exam unremarkable. Moist his membranes. Neck nontender no lymphadenopathy. Lungs clear to auscultation bilaterally. Heart regular rhythm no murmur. Abdomen soft nontender normal bowel sounds no peritoneal signs. No signs of obstruction. Patient moving all 4 extremities. Neurovascular intact. Nontender no edema. Neurologically is awake alert with no focal motor deficit. Test Results: CBC normal white count 10. Hemoglobin 16. Electrolytes unremarkable normal creatinine gap. Blood sugar 233. Emergency Department Course and Treatment: Patient will be treated with IV fluids and IV Zofran. His abdomen is benign and nontender. Repeat exam at 10:15 AM patient doing well. Abdomen benign nontender. He has been able to hold down ice chips. He did want another dose of Zofran prior to being discharged. Treatment Plan: Plenty of fluids and rest. Watch his blood sugars closely. Zofran as needed for nausea and Imodium for diarrhea. Disposition: Discharge Impression: Acute nausea, vomiting and diarrhea [place] to viral gastroenteritis History of diabetes This note was generated with [employer] dictation software. It may contain incorrect words, spelling, and punctuation that were not noted in review of the chart prior to signing ED Disposition - Plan for ED Patient: Referrals: Sushant Fernandez MD [Primary Care Provider] -
[2019-12-05] MEDS: Ondansetron 4 MG/2 ML Vial IV (08:52)
[2019-12-05] MEDS: 0.9% Normal Saline 1,000 ML 1000 ML IV (08:52)
[2019-12-05 08:59] LABS: Absolute Lymphocyte Count 1.54 X10^3/uL (0.83-4.51); Absolute Neutrophil Count 7.4 X10^3/uL (2.0-7.7); Basophil# 0.03 X10^3/uL; Basophil% 0.3 % (0-1); Eosinophil# 0.32 X10^3/uL; Eosinophils% 3.2 % (0-5); Hematocrit 46.2 % (40-54); Hemoglobin 16.4 g/dL (13.0-16.5); Lymphocyte # 1.54 X10^3/ul (4.0); Lymphocyte % 15.5 % (19-41); Mean Corp Hgb Conc 35.5 g/dL (32-36); Mean Corpuscular Hgb 29.3 pg (27.0-32.0); Mean Corpuscular Volume 82.5 fL (80-94); Monocyte# 0.62 X10^3/uL; Monocyte% 6.2 % (0-10); NRBC Flagged by Analyzer 0 % (0-5); Neutrophil # 7.42 X10^3/uL (2.7-7.7); Neutrophil % 74.5 % (47-70); Platelet Count 209 K/mm3 (150-450); RBC Distribution Width CV 13.6 % (11.6-14.6); RBC Distribution Width SD 39.9 fl (35.1-43.9)
[2019-12-05 09:11] LABS: Anion Gap 4 (5-15); BUN 10 mg/dL (7-18); Calcium,Total 9.4 mg/dL (8.5-10.1); Chloride 110 mmol/L (98-107); EST Glomerular Filtration Rate 91 mL/min (>60); Est Glom Filt Rate - Afr Amer 110 mL/min (>60); Estimated Creatinine Clearance 111.38 ml/min; Glucose 233 mg/dL (74-106); Potassium 3.7 mmol/L (3.5-5.1); Sodium Level 139 mmol/L (136-145)
--- NOTE | 2019-12-05 10:18 | ED.DEP ---
ED Disposition - Plan for ED Patient: Disposition: Home or Assisted Living Instructions: GASTROENTERITIS, Viral (6y-Adult) Referrals: Sushant Fernandez MD [Primary Care Provider] - 3-5 Days if not improving Additional Instructions: Plenty of fluids and rest. Zofran for nausea. Imodium for diarrhea. Follow-up with not improving.
--- NOTE | 2019-12-05 10:33 | ED.RN ---
IV DC'ED, CATHETER INTACT ,SMALL GAUZE DRESSING PLACED. DISCHARGE INSTRUCTIONS GIVEN TO AND REVIEWED WITH PATIENT, PATIENT DENIES QUESTIONS OR CONCERNS AND VOICES UNDERSTANDING OF DISCHARGE INSTRUCTIONS. PT AMBULATES OUT OF ROOM WITHOUT DIFFICULTY.
[2019-12-05 10:34] VITALS: BP 124/84; PULSE 83; RESP 16; O2SAT 95
== END 2019-12-05 10:34 | disposition home or self-care (01) ==
PROVIDERS: Emergency Provider Emergency Medicine; PCP Family Medicine
DX: R11.2 Nausea with vomiting, unspecified (principal); R19.7 Diarrhea, unspecified; A08.4 Viral intestinal infection, unspecified; I25.10 Atherosclerotic heart disease of native coronary artery without angina pectoris; I25.2 Old myocardial infarction; I10 Essential (primary) hypertension; E11.9 Type 2 diabetes mellitus without complications; E03.9 Hypothyroidism, unspecified; E78.00 Pure hypercholesterolemia, unspecified; Z95.5 Presence of coronary angioplasty implant and graft; Z79.899 Other long term (current) drug therapy; Z79.82 Long term (current) use of aspirin; Z79.4 Long term (current) use of insulin
CPT/HCPCS: 80048; 85025; 96361; 96374; 99285; J7030; A4216; J2405

== ENCOUNTER 2020-01-03 15:22 | Emergency (ER) | payer MEDICAID, SELFPAY ==
[2020-01-03 15:23] VITALS: BP 149/81; PULSE 84; RESP 15; TEMP 36.6; O2SAT 99; BMI 26.9
--- NOTE | 2020-01-03 16:01 | CT_ITS ---
STUDY: CT BRAIN WITHOUT CONTRAST REASON FOR EXAM: Male, 59 years old. HEADACHE, NAUSEA, ON ELIQUIS RADIATION DOSAGE (If Supplied By Facility): CTDIvol = ( 44.99 ) mGy, DLP = ( 846.73 ) mGycm TECHNIQUE: Transaxial CT imaging of the brain was performed without administration of intravenous contrast material. Individualized dose optimization techniques were used for this CT. COMPARISON: October 16, 2019 FINDINGS: Normal soft tissue structures. Normal calvarium. There is mild cerebral atrophy with widening of the extra-axial spaces and ventricular dilatation. Normal white matter tracts of the cerebral hemispheres. Normal basal ganglia and thalami. Normal brainstem. Normal cerebellum. There is no intracranial hemorrhage. There are no findings of an acute ischemic infarction. There is a small rounded opacity within the visualized left maxillary sinus consistent with a mucous retention cyst or polyp. CT/Brain/Head without Contrast IMPRESSION: Chronic involutional changes of the brain. Electronically Signed: Lucrecia Crawford MD at 16:47 EST Tel , Service support ,
[2020-01-03] MEDS: Ondansetron 4 MG/2 ML Vial IV (16:15)
[2020-01-03] MEDS: Morphine 4 MG/ML Syringe IV (16:16)
[2020-01-03] MEDS: 0.9% Normal Saline 1,000 ML 999 ML IV (16:16)
--- NOTE | 2020-01-03 18:10 | ED.DCSUM_ITS ---
- ER Visit Summary Date of Service: 01/03/20 Chief Complaint: Headache History of Present Illness: The patient is a [address] Royal. He has a headache that began at 9:00 this morning is gradually gotten worse. It is a dull diffuse pain that is 10 on 10 at worst and 710 currently. Is worsened by standing and walking. Is taken ibuprofen without relief. Has had nausea with no vomiting. Does have photophobia. Patient denies any recent trauma. However, he is on Eliquis. Patient denies any fever or chills. He denies any numbness or weakness. No change in his vision. Physical Examination: Vitals: Stable. Afebrile. General: Well-nourished and well-developed. Head: Normocephalic atraumatic. Neck: Supple, no lymphadenopathy. No JVD. Nontender. Cardiovascular: Regular rate and rhythm. No murmurs. Respiratory: No respiratory distress. Clear to auscultation bilaterally. Abdominal: Soft, nontender, nondistended, normal bowel sounds. No guarding, rebound, or peritoneal signs. Back: Nontender. Extremities: Nontender, no edema. Skin: Normal color, no rash. Neurologic: Alert and oriented ?3. Cranial nerves II through XII are intact. Normal strength and sensation. Psych: Normal affect. Test Results: Clinical Impression(s) from Imaging Studies Brain CT 01/03/20 16:01 IMPRESSION: Chronic involutional changes of the brain. Electronically Signed: Lucrecia Crawford MD at 16:47 EST Tel , Service support , Emergency Department Course and Treatment: Patient was given morphine and Zofran IV with no relief. He is then given Toradol and Reglan IV. He is resting comfortably. Treatment Plan: Patient be discharged with symptomatic care. Follow-up his primary care physician 1 to 2 days if not improving. Return to the emergency department for any worsening symptoms. Disposition: To home in improved and stable condition. Impression: 1. Cephalgia. This note was generated with [employer] software. It may contain incorrect words, spelling, and punctuation that were not noted in review of the chart prio r to signing ED Disposition - Plan for ED Patient: Disposition: Home or Assisted Living Instructions: HEADACHE, Unspecified Referrals: Sushant Fernandez MD [Primary Care Provider] - 1-2 Days if not improving
[2020-01-03] MEDS: Ketorolac 15 MG/ML Vial IV (18:21)
[2020-01-03] MEDS: Metoclopramide 10 MG/2 ML Vial IV (18:21)
[2020-01-03 18:31] VITALS: BP 132/69; PULSE 74; RESP 16; O2SAT 97
== END 2020-01-03 18:34 | disposition home or self-care (01) ==
LOC: ED 16:12
PROVIDERS: Emergency Provider Emergency Medicine; PCP Family Medicine
DX: R51 Headache (principal); I10 Essential (primary) hypertension; I25.10 Atherosclerotic heart disease of native coronary artery without angina pectoris; E03.9 Hypothyroidism, unspecified; E11.9 Type 2 diabetes mellitus without complications; Z79.01 Long term (current) use of anticoagulants; Z79.4 Long term (current) use of insulin; Z79.82 Long term (current) use of aspirin
CPT/HCPCS: 70450; 96361; 96374; 96375; 99283; J7030; A4216; J2405

== ENCOUNTER 2020-01-13 08:06 | Emergency (ER) | payer MEDICAID, SELFPAY ==
[2020-01-13 08:07] VITALS: BP 155/97; PULSE 79; RESP 17; TEMP 36.5; O2SAT 96; BMI 27.3
--- NOTE | 2020-01-13 08:12 | EKG12_ITS ---
Test Reason : COLD SX Blood Pressure : / mmHG Vent. Rate : 075 BPM Atrial Rate : 075 BPM P-R Int : 168 ms QRS Dur : 098 ms QT Int : 408 ms P-R-T Axes : 066 -49 040 degrees QTc Int : 455 ms Normal sinus rhythm Incomplete right bundle branch block Left anterior fascicular block Abnormal ECG Confirmed by LUIS M RENEE ([id number]), film editor RAPHAEL GRAHAM ([id number]) on 01/17/2020 9:22:11 AM Referred By: [place] Confirmed By:LUIS M RENEE
--- NOTE | 2020-01-13 08:16 | ED.DCSUM_ITS ---
History of Present Illness Chief Complaint: Cold Sx Informant: Patient Onset: Days Maximum Severity: Mild Narrative: Patient has COPD, presents with 3 days of dry cough runny nose, we are in the midst of coronavirus National emergency he has no exposures per the flowsheet he did not receive flu vaccination, no chest pain or abdominal pain just a harsh cough and rhinorrhea Past Medical History - Allergies and Home Meds Allergies/Adverse Reactions: Allergies diphenhydramine HCl [From Benadryl] Allergy (Verified 01/13/20 08:10) Rash Penicillins Allergy (Verified 01/13/20 08:10) Rash venom-honey bee [bee venom (honey bee)] Allergy (Verified 01/13/20 08:10) Swelling Primary Care Physician: Sushant Fernandez MD [Primary Care Provider] - Past Medical History: - Surgical History: herniorrhaphy, total knee arthroplasty, - - 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 Smoking Status: Never smoker - Family History Paternal Family History: Reports: Heart Disease - History of CA/CAD, unclear age., Pulmonary Disease - Father from emphysema Additional Family History: No heart disease Maternal Family History: Reports: Unknown - Patient notes that he does not know his maternal family history, she neatly following his secondary to h emorrhaging. Review of Systems ROS: - COPD ENT: Reports: Rhinorrhea Cardiovascular: Reports: Chest pain Physical Exam Vital Signs/Narrative: Vital Signs Temp Pulse Resp BP Pulse Ox 01/13/20 08:07 97.7 F L 79 17 155/97 H 96 General: Well nourished, Well developed, No Acute Distress, - - He is in no distress resting company in the bed his vital signs are unremarkable he does have rhinorrhea his lungs have minimal wheezing otherwise clear his rest of his physical exam is unremarkable see the full chart Head: Normocephalic, Atraumatic Eyes: Perrl, EOMI ENT: Moist mucous membranes, No rhinorrhea Neck: Supple, Nontender Cardiovascular: Regular rate, Regular rhythm, No murmurs Respiratory: No distress, CTA bilaterally, Chest nontender Abdomen: Soft, Nontender, Nondistended, Normal bowel sounds Back: Nontender, Normal Inspection Extremities: Nontender, No edema Skin: Normal color, No rash Neurological: Alert, Oriented x3, Cranial nerves II-XII grossly intact, Normal Strength, Normal Sensation Psychological: Normal affect, Normal Mood Diagnostic/Tx/Re-eval - Medical Decision Making Given all of the above we will proceed with the respiratory protocols including viral screening x-ray aerosols ED evaluation Patient's ED screening studies are all unremarkable the viral screenings are pending he will be contacted with those results per staff, on reevaluation is resting comfortably he is comfortable discharge home he has inhalers to use a follow-up with his outpatient providers will add Mucinex and return for change in symptoms Home stable Final impression URI with cough exacerbation of COPD ED Disposition - Plan for ED Patient: Diagnosis: URI (upper respiratory infection) Instructions: Copd Flare, BRONCHITIS, No Antibiotic (Adult) Prescriptions: Guaifenesin/Pseudoephedrne HCl [Mucinex D ER 600-60 mg Tablet] 1 ea PO BID #14 tab.er.12h Prescription Printed Referrals: Sushant Fernandez MD [Primary Care Provider] -
[2020-01-13 08:27] VITALS: PULSE 80; RESP 18
[2020-01-13] MEDS: Ipratropium/Albuterol Sulfate 3 ML AMPUL.NEB INHALATION ×2 (08:27→09:19)
[2020-01-13 08:33] LABS: Absolute Lymphocyte Count 1.31 X10^3/uL (0.83-4.51); Absolute Neutrophil Count 6.9 X10^3/uL (2.0-7.7); Basophil# 0.05 X10^3/uL; Basophil% 0.5 % (0-1); Eosinophil# 0.27 X10^3/uL; Eosinophils% 2.9 % (0-5); Hematocrit 43.8 % (40-54); Hemoglobin 15.4 g/dL (13.0-16.5); Lymphocyte # 1.31 X10^3/ul (4.0); Lymphocyte % 14.3 % (19-41); Mean Corp Hgb Conc 35.2 g/dL (32-36); Mean Corpuscular Hgb 28.4 pg (27.0-32.0); Mean Corpuscular Volume 80.8 fL (80-94); Monocyte# 0.66 X10^3/uL; Monocyte% 7.2 % (0-10); NRBC Flagged by Analyzer 0 % (0-5); Neutrophil # 6.85 X10^3/uL (2.7-7.7); Neutrophil % 74.9 % (47-70); Platelet Count 186 K/mm3 (150-450); RBC Distribution Width CV 13.1 % (11.6-14.6); RBC Distribution Width SD 37.8 fl (35.1-43.9); Red Blood Count 5.42 M/mm3 (4.6-6.2); White Blood Count 9.2 K/mm3 (4.4-11.0)
--- NOTE | 2020-01-13 08:40 | RAD_ITS ---
STUDY: X-RAY CHEST REASON FOR EXAM: Male, 59 years old. COUGH; -- COPD, H/O VT, STENT TECHNIQUE: PA and lateral views of the chest. COMPARISON: October 31, 2019. FINDINGS: There are monitoring devices. The lungs are clear and expanded. There is no demonstrated pleural abnormality. Normal size heart. Normal mediastinum and marcie. Normal visualized pulmonary arteries. Normal visualized aortic arch and descending thoracic aorta. Normal visualized thoracic spine. Normal visualized ribs, clavicles, and shoulders. There is no demonstrated abnormality of the visualized soft tissue structures of the upper abdomen. RAD/Chest PA and Lateral IMPRESSION: Normal x-ray examination of the chest. Electronically Signed: Live Busch MD at 8:59 EDT , Service support ,
[2020-01-13 08:48] LABS: Anion Gap 5 (5-15); BUN 10 mg/dL (7-18); BUN/Creat Ratio 11.8 RATIO (10-20); Calcium,Total 8.8 mg/dL (8.5-10.1); Chloride 106 mmol/L (98-107); Creatinine, Serum 0.84 mg/dL (0.70-1.30); EST Glomerular Filtration Rate 99 mL/min (>60); Est Glom Filt Rate - Afr Amer 119 mL/min (>60); Estimated Creatinine Clearance 119.33 ml/min; Glucose 255 mg/dL (74-106); Potassium 3.5 mmol/L (3.5-5.1); Sodium Level 139 mmol/L (136-145)
[2020-01-13 08:54] LABS: BNP,B-Type NATRIURETIC PEPTIDE 5.1 pg/mL (0-100)
[2020-01-13 09:00] VITALS: BP 143/74; PULSE 80; RESP 16; TEMP 36.8; O2SAT 96
[2020-01-13 09:19] VITALS: PULSE 82; RESP 18
--- NOTE | 2020-01-13 09:52 | ED.DEP ---
ED Disposition - Plan for ED Patient: Diagnosis: URI (upper respiratory infection) Instructions: BRONCHITIS, No Antibiotic (Adult), Copd Flare Prescriptions: Guaifenesin/Pseudoephedrne HCl [Mucinex D ER 600-60 mg Tablet] 1 ea PO BID #14 tab.er.12h Prescription Printed Referrals: Sushant Fernandez MD [Primary Care Provider] -
[2020-01-13 09:58] VITALS: BP 131/76; PULSE 87; RESP 20; O2SAT 94
[2020-01-13] MEDS: Oxymetazoline 0.05% 1 SPRAY SPRAY.BTL 2 SPRAY NASAL (09:58)
== END 2020-01-13 10:04 | disposition home or self-care (01) ==
LOC: ED 09:11
PROVIDERS: Emergency Provider Emergency Medicine; PCP Family Medicine
DX: J06.9 Acute upper respiratory infection, unspecified (principal); J44.9 Chronic obstructive pulmonary disease, unspecified; E11.9 Type 2 diabetes mellitus without complications; Z79.4 Long term (current) use of insulin; Z79.82 Long term (current) use of aspirin
CPT/HCPCS: 71046; 80048; 83880; 84484; 85025; 87633; 87804; 93005; 94640; 99284; A4216

== ENCOUNTER 2020-05-02 15:55 | Emergency (ER) | payer MEDICAID, SELFPAY ==
[2020-05-02 15:57] VITALS: BP 124/86; PULSE 76; RESP 15; TEMP 36.6; O2SAT 96; BMI 26.6
[2020-05-02] MEDS: 0.9% Normal Saline 1,000 ML 1000 ML IV (17:19)
[2020-05-02 17:28] LABS: Absolute Lymphocyte Count 1.83 X10^3/uL (0.83-4.51); Absolute Neutrophil Count 5.4 X10^3/uL (2.0-7.7); Basophil# 0.02 X10^3/uL; Basophil% 0.3 % (0-1); Eosinophil# 0.11 X10^3/uL; Eosinophils% 1.4 % (0-5); Hematocrit 42.7 % (40-54); Hemoglobin 14.6 g/dL (13.0-16.5); Lymphocyte # 1.83 X10^3/ul (4.0); Lymphocyte % 23.3 % (19-41); Mean Corp Hgb Conc 34.2 g/dL (32-36); Mean Corpuscular Hgb 28.4 pg (27.0-32.0); Mean Corpuscular Volume 83.1 fL (80-94); Mean Platelet Vol. 9.6 fl (6.2-12.0); Monocyte# 0.49 X10^3/uL; Monocyte% 6.2 % (0-10); NRBC Flagged by Analyzer 0 % (0-5); Neutrophil # 5.38 X10^3/uL (2.7-7.7); Neutrophil % 68.5 % (47-70); Platelet Count 211 K/mm3 (150-450); RBC Distribution Width CV 13.1 % (11.6-14.6); RBC Distribution Width SD 39.2 fl (35.1-43.9); Red Blood Count 5.14 M/mm3 (4.6-6.2); White Blood Count 7.9 K/mm3 (4.4-11.0)
[2020-05-02 17:41] LABS: ALB/GLOB Ratio 1.2 RATIO (0.9-2.4); AST(SGOT) 7 U/L (15-37); Alanine Aminotransfer ALT/SGPT 12 U/L (16-61); Albumin, Serum 3.8 g/dL (3.2-5.0); Alkaline Phosphatase 85 U/L (45-117); Anion Gap 4 (5-15); BUN 12 mg/dL (7-18); BUN/Creat Ratio 10.9 RATIO (10-20); Calcium,Total 8.8 mg/dL (8.5-10.1); Chloride 103 mmol/L (98-107); EST Glomerular Filtration Rate 73 mL/min (>60); Est Glom Filt Rate - Afr Amer 88 mL/min (>60); Globulin 3.3 g/dL (2.2-4.2); Glucose 375 mg/dL (74-106); Protein, Total 7.1 g/dL (6.4-8.2); Sodium Level 136 mmol/L (136-145)
[2020-05-02 18:58] LABS: Bacteria 0 SEEN /hpf (None Seen); Mucous, Urine 0 SEEN /hpf (<or=2+); Red Blood Cells-Urine 0 SEEN /hpf (0-5); White Blood Cells 0 SEEN /hpf (0-5)
[2020-05-02 19:02] LABS: Color, Urine Yellow (Yellow); Glucose, Dipstick 1000 mg/dl (Normal); Ketone-Dipstick Negative (Negative); Leukocyte Esterase-Dipstick Negative /ul (Negative); Nitrite-Dipstick Negative (Negative); Occult Blood-Urine Negative /ul (Negative); Protein-Dipstick 30 mg/dl (Negative); Urine Bilirubin Dipstick Negative (Negative); Urine Clarity Sl. Cloudy (Clear); Urine Urobilinogen Normal (Normal)
[2020-05-02 19:13] LABS: Squamous Epithelial Cells - UA 0-5 SEEN /hpf (0-5)
[2020-05-02 19:15] VITALS: RESP 18
--- NOTE | 2020-05-02 20:04 | ED.DCSUM_ITS ---
- ER Visit Summary Date of Service: 05/02/20 Chief Complaint: General weakness History of Present Illness: The patient is a 60 M who presents with generalized weakness that began today. Patient states he feels weak all over. Patient states he was [place] on [place] earlier today without any difficulties. Patient states that while he was driving home he began to feel weak. Patient states he did not drink a lot of water while he was fishing today. Patient states that he did not check his sugars today. Patient was concerned that his blood sugar was too low. Patient denies any chest pain or shortness of breath. Patient denies any nausea or vomiting. Physical Examination: Vital signs are stable. Patient is afebrile. Patient is in no acute distress. Oral mucosa is pink and moist. Neck is supple. Trachea is midline. There is no JVD noted. Heart was regular rate and rhythm. Lungs are clear and equal bilaterally. Abdomen is soft. Bowel sounds are normal. There is no tenderness. There is no rebound or guarding noted. Skin is warm dry. Cranial nerves II through XII are intact. There are no focal motor or sensory deficits noted. Extremities are intact. There is no calf tenderness or edema. Test Results: CBC and comprehensive metabolic profile were obtained and were within normal limits with the exception of an elevated glucose of 375. Urinalysis was normal. Emergency Department Course and Treatment: Patient was given IV fluids. Patient was feeling better on reevaluation. Patient was instructed to follow-up with his primary care physician in 5 to 7 days. Patient understood and was agreeable with the plan. All questions were answered. Disposition: Discharge home Impression: General weakness This note was generated with [employer] dictation software. It may contain incorrect words, spelling, and punctuation that were not noted in review of the chart prior to signing ED Disposition - Plan for ED Patient: Disposition: Home or Assisted Living Diagnosis: General weakness Instructions: ED Weakness [facility] Referrals: Sushant Fernandez MD [Primary Care Provider] - 5-7 Days
[2020-05-02 20:31] VITALS: BP 134/89; PULSE 69; RESP 16; O2SAT 99
== END 2020-05-02 20:58 | disposition home or self-care (01) ==
PROVIDERS: Emergency Provider Emergency Medicine; PCP Family Medicine
DX: R53.1 Weakness (principal); I25.10 Atherosclerotic heart disease of native coronary artery without angina pectoris
CPT/HCPCS: 80053; 81001; 85025; 96360; 96361; 99283; J7030; A4216

== ENCOUNTER 2020-09-13 23:03 | Emergency (ER) | payer MEDICAID, SELFPAY ==
[2020-09-13 23:04] VITALS: BP 133/90; PULSE 89; RESP 16; TEMP 37; O2SAT 95; BMI 26.2
--- NOTE | 2020-09-13 23:14 | ED.DCSUM_ITS ---
History of Present Illness Chief Complaint: Diarrhea Informant: Patient Narrative: 60-year-old male presents the emergency room for the evaluation of headache, diarrhea, and nausea. Symptoms began around 330 this afternoon. He states that he is having liquid bowel movements every 10 to 15 minutes. He notes a generalized headache. He notes a subjective fever. No cough or shortness of breath. He denies any abdominal pain. He is a diabetic and his blood sugars today were around 147. He denies any recent antibiotics bad food exposures or bad water. No recent travel. - Past Medical History (1) Pancreatitis Status: Resolved (2) HLD (hyperlipidemia) Status: Chronic (3) History of ETOH abuse Status: Chronic (4) DM (diabetes mellitus) Status: Chronic (5) Coronary atherosclerosis of [place] coronary artery Status: Chronic (6) Essential hypertension Status: Chronic (7) Old myocardial infarction Status: Chronic (8) Hyperosmolar (nonketotic) coma Status: Chronic Past Medical History - Allergies and Home Meds Allergies/Adverse Reactions: Allergies diphenhydramine HCl [From Benadryl] Allergy (Verified 09/13/20 23:07) Rash Penicillins Allergy (Verified 09/13/20 23:07) Rash venom-honey bee [bee venom (honey bee)] Allergy (Verified 09/13/20 23:07) Swelling Primary Care Physician: Sushant Fernandez MD [Primary Care Provider] - Prior records reviewed: Yes Surgical History: herniorrhaphy, total knee arthroplasty, - - 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 Smoking Status: Never smoker Drugs: None - Family History Paternal Family History: Reports: Heart Disease - History of [place]/CAD, unclear age., Pulmonary Disease - Father from emphysema Additional Family History: No heart disease Maternal Family History: Reports: Unknown - Patient notes that he does not know his maternal family history, she neatly following his secondary to hemorrhaging. Review of Systems General: Reports: Chills, Fever, Malaise. Denies: Sweats Eyes: Denies: Visual changes - bilaterally, Diplopia ENT: Denies: Rhinorrhea, Sore throat Cardiovascular: Denies: Chest pain, Palpitations Respiratory: Denies: Dyspnea, Cough, Dyspnea on exertion Gastrointestinal: Reports: Nausea, Diarrhea. Denies: Abdominal pain, Vomiting, Melena, Hematochezia Genitourinary: Denies: Dysuria, Hematuria, Frequency Musculoskeletal: Denies: Back pain, Extremity Pain Skin: Denies: Rash, Wounds Neurological: Reports: Headache. Denies: Weakness, Numbness Physical Exam Vital Signs/Narrative: Vital Signs Temp Pulse Resp BP Pulse Ox 09/13/20 23:04 98.6 F 89 16 133/90 H 95 Inital Vital Signs reviewed: Yes General: Well nourished, Well developed, No Acute Distress Head: Normocephalic, Atraumatic Eyes: Perrl, EOMI ENT: Moist mucous membranes, No rhinorrhea Neck: Supple, Nontender Cardiovascular: Regular rate, Regular rhythm, No murmurs Respiratory: No distress, CTA bilaterally, Chest nontender Abdomen: Soft, Nontender, Nondistended, Normal bowel sounds Back: Nontender, Normal Inspection Extremities: Nontender, No edema Skin: Normal color, No rash Neurological: Alert, Oriented x3, Cranial nerves II-XII grossly intact, Normal Strength, Normal Sensation Psychological: - - Flat affect Diagnostic/Tx/Re-eval Laboratory Last Values WBC 11.8 K/mm3 (4.4-11.0) H 09/13/20 23:10 RBC 5.97 M/mm3 (4.6-6.2) 09/13/20 23:10 Hgb 17.3 g/dL (13.0-16.5) H 09/13/20 23:10 Hct 49.1 % (40-54) 09/13/20 23:10 MCV 82.2 fL (80-94) 09/13/20 23:10 MCH 29.0 pg (27.0-32.0) 09/13/20 23:10 MCHC 35.2 g/dL (32-36) 09/13/20 23:10 RDW Std Deviation 38.5 fl (35.1-43.9) 09/13/20 23:10 RDW Coeff of Manjinder 13.1 % (11.6-14.6) 09/13/20 23:10 Plt Count 300 K/mm3 (150-450) 09/13/20 23:10 MPV 9.2 fl (6.2-12.0) 09/13/20 23:10 Immature Gran % (Auto) 1.800 % (0.0-0.9) H 09/13/20 23:10 Neut % (Auto) 70.5 % (47-70) H 09/13/20 23:10 Lymph % (Auto) 17.1 % (19-41) L 09/13/20 23:10 [place] % (Auto) 5.7 % (0-10) 09/13/20 23:10 Eos % (Auto) 4.6 % (0-5) 09/13/20 23:10 Baso % (Auto) 0.3 % (0-1) 09/13/20 23:10 Absolute Neuts (auto) 8.4 X10^3/uL (2.0-7.7) H 09/13/20 23:10 Absolute Lymphs (auto) 2.03 X10^3/uL (0.83-4.51) 09/13/20 23:10 Nucleated RBC % 0 % (0-5) 09/13/20 23:10 Sodium 137 mmol/L (136-145) 09/13/20 23:10 Potassium 3.7 mmol/L (3.5-5.1) 09/13/20 23:10 Chloride 102 mmol/L (98-107) 09/13/20 23:10 Carbon Dioxide 25.0 mmol/L (21.0-32.0) 09/13/20 23:10 Anion Gap 10 (5-15) 09/13/20 23:10 BUN 18 mg/dL (7-18) 09/13/20 23:10 Creatinine 1.07 mg/dL (0.70-1.30) 09/13/20 23:10 Estim Creat Clear Calc 92.52 ml/min 09/13/20 23:10 Est GFR (MDRD) Af Amer 91 mL/min (>60) 09/13/20 23:10 Est GFR (MDRD) Non-Af 75 mL/min (>60) 09/13/20 23:10 BUN/Creatinine Ratio 16.8 RATIO (10-20) 09/13/20 23:10 Glucose 319 mg/dL (74-106) H 09/13/20 23:10 Calcium 9.3 mg/dL (8.5-10.1) 09/13/20 23:10 Total Bilirubin 0.70 mg/dL (0.20-1.00) 09/13/20 23:10 AST 9 U/L (15-37) L 09/13/20 23:10 ALT 18 U/L (16-61) 09/13/20 23:10 Alkaline Phosphatase 96 U/L (45-117) 09/13/20 23:10 Total Protein 8.5 g/dL (6.4-8.2) H 09/13/20 23:10 Albumin 4.4 g/dL (3.2-5.0) 09/13/20 23:10 Globulin 4.1 g/dL (2.2-4.2) 09/13/20 23:10 Albumin/Globulin Ratio 1.1 RATIO (0.9-2.4) 09/13/20 23:10 Lipase 106 U/L (73-393) 09/13/20 23:10 Urine Color Yellow (Yellow) 09/13/20 23:37 Urine Clarity Sl. Cloudy (Clear) 09/13/20 23:37 Urine pH 5.0 (5.0 - 8.0) 09/13/20 23:37 Ur Specific [place] 1.025 (1.002-1.030) 09/13/20 23:37 Urine Protein 30 mg/dl (Negative) H 09/13/20 23:37 Urine Glucose (UA) 1000 mg/dl (Normal) H 09/13/20 23:37 Urine Ketones 5 mg/dl (Negative) H 09/13/20 23:37 Urine Occult Blood Negative /ul (Negative) 09/13/20 23:37 Urine Nitrite Negative (Negative) 09/13/20 23:37 Urine Bilirubin Negative mg/dL (Negative) 09/13/20 23:37 Urine Urobilinogen 1 mg/dl (Normal) H 09/13/20 23:37 Ur Leukocyte Esterase Negative /ul (Negative) 09/13/20 23:37 Urine RBC 0 SEEN /hpf (0-5) 09/13/20 23:37 Urine WBC 0 SEEN /hpf (0-5) 09/13/20 23:37 Ur Squamous Epith Cells 0-5 SEEN /hpf (0-5) 09/13/20 23:37 Urine Bacteria 0 SEEN /hpf (None Seen) 09/13/20 23:37 Hyaline Casts 25-50 SEEN /lpf (0-5) 09/13/20 23:37 Urine Mucus 2+ /hpf (<or=2+) 09/13/20 23:37 - Medical Decision Making Patient received Zofran Toradol and IV fluids. His labs are very reassuring. We will swab him for Covid given that he has headache diarrhea and subjective fever. Patient will be given a prescription for Zofran. ED Disposition - Plan for ED Patient: Disposition: Home or Assisted Living Diagnosis: Diarrhea, Viral syndrome Instructions: ED Diarrhea Viral Prescriptions: Ondansetron [Zofran Odt] 4 mg PO Q6H PRN PRN #14 tab PRN Reason: Nausea Prescription Printed Referrals: Sushant Fernandez MD [Primary Care Provider] - 3-5 Days if not improving
[2020-09-13] MEDS: Ondansetron 4 MG/2 ML Vial IV (23:17)
[2020-09-13] MEDS: Ketorolac 30 MG/ML Syringe IV (23:18)
[2020-09-13] MEDS: 0.9% Normal Saline 1,000 ML 1000 ML IV (23:19)
[2020-09-13 23:36] LABS: Absolute Lymphocyte Count 2.03 X10^3/uL (0.83-4.51); Absolute Neutrophil Count 8.4 X10^3/uL (2.0-7.7); Basophil# 0.04 X10^3/uL; Basophil% 0.3 % (0-1); Eosinophil# 0.54 X10^3/uL; Eosinophils% 4.6 % (0-5); Hematocrit 49.1 % (40-54); Hemoglobin 17.3 g/dL (13.0-16.5); Lymphocyte # 2.03 X10^3/ul (4.0); Lymphocyte % 17.1 % (19-41); Mean Corp Hgb Conc 35.2 g/dL (32-36); Mean Corpuscular Volume 82.2 fL (80-94); Mean Platelet Vol. 9.2 fl (6.2-12.0); Monocyte# 0.67 X10^3/uL; Monocyte% 5.7 % (0-10); NRBC Flagged by Analyzer 0 % (0-5); Neutrophil # 8.35 X10^3/uL (2.7-7.7); Neutrophil % 70.5 % (47-70); Platelet Count 300 K/mm3 (150-450); RBC Distribution Width CV 13.1 % (11.6-14.6); RBC Distribution Width SD 38.5 fl (35.1-43.9); Red Blood Count 5.97 M/mm3 (4.6-6.2); White Blood Count 11.8 K/mm3 (4.4-11.0)
[2020-09-13 23:41] LABS: Bacteria 0 SEEN /hpf (None Seen); Red Blood Cells-Urine 0 SEEN /hpf (0-5); White Blood Cells 0 SEEN /hpf (0-5)
[2020-09-13 23:46] LABS: Color, Urine Yellow (Yellow); Glucose, Dipstick 1000 mg/dl (Normal); Ketone-Dipstick 5 mg/dl (Negative); Leukocyte Esterase-Dipstick Negative /ul (Negative); Nitrite-Dipstick Negative (Negative); Occult Blood-Urine Negative /ul (Negative); Protein-Dipstick 30 mg/dl (Negative); Specific Gravity, Urine 1.025 (1.002-1.030); Urine Bilirubin Dipstick Negative (Negative); Urine Clarity Sl. Cloudy (Clear); Urine Urobilinogen 1 mg/dl (Normal)
[2020-09-13 23:59] LABS: Hyaline Cast 25-50 SEEN /lpf (0-5); Mucous, Urine 2+ /hpf (<or=2+); Squamous Epithelial Cells - UA 0-5 SEEN /hpf (0-5)
[2020-09-14 00:09] LABS: ALB/GLOB Ratio 1.1 RATIO (0.9-2.4); AST(SGOT) 9 U/L (15-37); Alanine Aminotransfer ALT/SGPT 18 U/L (16-61); Albumin, Serum 4.4 g/dL (3.2-5.0); Alkaline Phosphatase 96 U/L (45-117); Anion Gap 10 (5-15); BUN 18 mg/dL (7-18); BUN/Creat Ratio 16.8 RATIO (10-20); Calcium,Total 9.3 mg/dL (8.5-10.1); Chloride 102 mmol/L (98-107); Creatinine, Serum 1.07 mg/dL (0.70-1.30); EST Glomerular Filtration Rate 75 mL/min (>60); Est Glom Filt Rate - Afr Amer 91 mL/min (>60); Estimated Creatinine Clearance 92.52 ml/min; Globulin 4.1 g/dL (2.2-4.2); Glucose 319 mg/dL (74-106); Lipase 106 U/L (73-393); Potassium 3.7 mmol/L (3.5-5.1); Protein, Total 8.5 g/dL (6.4-8.2); Sodium Level 137 mmol/L (136-145)
[2020-09-14 00:40] VITALS: BP 132/87; PULSE 87; RESP 18; O2SAT 97
== END 2020-09-14 00:41 | disposition home or self-care (01) ==
PROVIDERS: Emergency Provider Emergency Medicine; PCP Family Medicine
DX: R19.7 Diarrhea, unspecified (principal); B34.9 Viral infection, unspecified; I25.10 Atherosclerotic heart disease of native coronary artery without angina pectoris; E11.9 Type 2 diabetes mellitus without complications; I10 Essential (primary) hypertension; E78.5 Hyperlipidemia, unspecified; Z79.4 Long term (current) use of insulin; Z79.82 Long term (current) use of aspirin
CPT/HCPCS: 80053; 81001; 83690; 85025; 87635; 96374; 96375; 99284; J7030; A4216; J2405; U0003

== ENCOUNTER 2020-09-16 05:18 | Emergency (ER) | payer MEDICAID, SELFPAY ==
[2020-09-16 05:18] VITALS: BP 143/95; PULSE 81; RESP 16; TEMP 36.8; O2SAT 95; BMI 26.6
--- NOTE | 2020-09-16 05:30 | ED.VIS.GEN ---
History of Present Illness Chief Complaint: Diarrhea Narrative: This patient is a 60-year-old male who presents with diarrhea. He reports severe diarrhea every several minutes. This has been going on for about 1 week. He also reports intermittent mild nausea. No vomiting. He was seen here on Tuesday. He did have a Covid test at that time which was sent and results are currently pending. He does have Zofran which helps with the nausea. He denies any abdominal pain. No fevers. No history of C. difficile colitis. No recent antibiotics or hospitalization. Past Medical History - Allergies and Home Meds Allergies/Adverse Reactions: Allergies diphenhydramine HCl [From Benadryl] Allergy (Verified 09/16/20 05:22) Rash Penicillins Allergy (Verified 09/16/20 05:22) Rash venom-honey bee [bee venom (honey bee)] Allergy (Verified 09/16/20 05:22) Swelling Primary Care Physician: Sushant Fernandez MD [Primary Care Provider] - Past Medical History: - - Diabetes, hypertension, hyperlipidemia, coronary artery disease Surgical History: herniorrhaphy, total knee arthroplasty, - - 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 Smoking Status: Never smoker - Family History Paternal Family History: Reports: Heart Disease - History of [place]/CAD, unclear age., Pulmonary Disease - Father from emphysema Additional Family History: No heart disease Maternal Family History: Reports: Unknown - Patient notes that he does not know his maternal family history, she neatly following his secondary to hemorrhaging. Review of Systems All systems negative except as indicated General: Denies: Fever Eyes: Denies: Visual changes - bilaterally Cardiovascular: Denies: Chest pain Respiratory: Reports: Cough. Denies: Dyspnea Gastrointestinal: Reports: Nausea, Diarrhea. Denies: Abdominal pain, Vomiting, Melena Musculoskeletal: Denies: Myalgias, Arthralgias Skin: Denies: Rash Neurological: Reports: Headache Hematologic: Denies: Easy bruising Allergy: Denies: Uticaria Physical Exam Vital Signs/Narrative: Vital Signs Temp Pulse Resp BP Pulse Ox 09/16/20 05:18 98.3 F 81 16 143/95 H 95 Inital Vital Signs reviewed: Yes General: Well nourished, Well developed Head: Normocephalic Eyes: EOMI ENT: Moist mucous membranes Neck: Supple Cardiovascular: Regular rate, Regular rhythm Respiratory: No distress, CTA bilaterally Abdomen: Soft, Nontender, Nondistended Extremities: Nontender Skin: Normal color Neurological: Alert Psychological: - - Patient appears anxious Diagnostic/Tx/Re-eval Laboratory Results 09/16/20 05:30 Sodium 138 Potassium 3.7 Chloride 107 Carbon Dioxide 25.0 Anion Gap 6 BUN 15 Creatinine 0.95 Estim Creat Clear Calc 104.21 Est GFR (MDRD) Af Amer 103 Est GFR (MDRD) Non-Af 85 BUN/Creatinine Ratio 15.7 Glucose 187 H Calcium 8.1 L - Medical Decision Making Patient was treated with IV fluids and Imodium. BMP is unremarkable with normal renal function and potassium. Stool studies were ordered although the patient has not had diarrhea here. I did write for outpatient enteric pathogen panel, ova and parasites, C. difficile. Patient advised to follow-up with his primary care physician. He does understand return for new or worsening symptoms and was advised on signs and symptoms to monitor for. Patient discharged. ED Disposition - Plan for ED Patient: Disposition: Home or Assisted Living Diagnosis: Diarrhea Instructions: Treating Diarrhea Referrals: Sushant Fernandez MD [Primary Care Provider] -
[2020-09-16] MEDS: Loperamide 2 MG Capsule 4 MG PO (05:34)
[2020-09-16] MEDS: 0.9% Normal Saline 1,000 ML 999 ML IV (05:34)
[2020-09-16 05:49] LABS: Anion Gap 6 (5-15); BUN 15 mg/dL (7-18); BUN/Creat Ratio 15.7 RATIO (10-20); Calcium,Total 8.1 mg/dL (8.5-10.1); Chloride 107 mmol/L (98-107); Creatinine, Serum 0.95 mg/dL (0.70-1.30); EST Glomerular Filtration Rate 85 mL/min (>60); Est Glom Filt Rate - Afr Amer 103 mL/min (>60); Estimated Creatinine Clearance 104.21 ml/min; Glucose 187 mg/dL (74-106); Potassium 3.7 mmol/L (3.5-5.1); Sodium Level 138 mmol/L (136-145)
== END 2020-09-16 09:46 | disposition home or self-care (01) ==
PROVIDERS: Emergency Provider Emergency Medicine; PCP Family Medicine
DX: R19.7 Diarrhea, unspecified (principal); I25.10 Atherosclerotic heart disease of native coronary artery without angina pectoris; I10 Essential (primary) hypertension; E78.5 Hyperlipidemia, unspecified; E11.9 Type 2 diabetes mellitus without complications; Z79.4 Long term (current) use of insulin; Z79.82 Long term (current) use of aspirin
CPT/HCPCS: 80048; 99284; J7030; A4216

== ENCOUNTER 2020-11-24 10:06 | Emergency (ER) | payer MEDICAID, SELFPAY ==
[2020-11-24 10:08] VITALS: BP 145/90; PULSE 83; RESP 18; TEMP 36.2; O2SAT 95; BMI 27.6
[2020-11-24 11:35] LABS: Bedside Glucose 406 mg/dL (70-110)
[2020-11-24 11:40] LABS: Absolute Lymphocyte Count 2.21 X10^3/uL (0.83-4.51); Absolute Neutrophil Count 4.5 X10^3/uL (2.0-7.7); Basophil# 0.05 X10^3/uL; Basophil% 0.7 % (0-1); Eosinophil# 0.28 X10^3/uL; Eosinophils% 3.7 % (0-5); Hematocrit 44.6 % (40-54); Hemoglobin 15.8 g/dL (13.0-16.5); Lymphocyte # 2.21 X10^3/ul (4.0); Lymphocyte % 29.1 % (19-41); Mean Corp Hgb Conc 35.4 g/dL (32-36); Mean Corpuscular Hgb 28.6 pg (27.0-32.0); Mean Corpuscular Volume 80.7 fL (80-94); Mean Platelet Vol. 9.4 fl (6.2-12.0); Monocyte# 0.55 X10^3/uL; Monocyte% 7.2 % (0-10); NRBC Flagged by Analyzer 0 % (0-5); Neutrophil # 4.48 X10^3/uL (2.7-7.7); Platelet Count 212 K/mm3 (150-450); RBC Distribution Width CV 12.8 % (11.6-14.6); RBC Distribution Width SD 36.9 fl (35.1-43.9); Red Blood Count 5.53 M/mm3 (4.6-6.2); White Blood Count 7.6 K/mm3 (4.4-11.0)
[2020-11-24 11:52] LABS: Anion Gap 8 (5-15); BUN 9 mg/dL (7-18); BUN/Creat Ratio 10.1 RATIO (10-20); Calcium,Total 8.9 mg/dL (8.5-10.1); Chloride 99 mmol/L (98-107); Creatinine, Serum 0.89 mg/dL (0.70-1.30); EST Glomerular Filtration Rate 93 mL/min (>60); Est Glom Filt Rate - Afr Amer 112 mL/min (>60); Estimated Creatinine Clearance 111.24 ml/min; Glucose 411 mg/dL (74-106); Potassium 3.3 mmol/L (3.5-5.1); Sodium Level 135 mmol/L (136-145)
[2020-11-24] MEDS: Insulin Lispro 100 UNIT/ML INSULN.PEN 8 UNIT SC ×2 (12:28→14:04)
[2020-11-24 12:29] VITALS: BP 139/82; PULSE 77; RESP 16; O2SAT 97
[2020-11-24 13:26] LABS: Bedside Glucose 374 mg/dL (70-110)
--- NOTE | 2020-11-24 13:53 | ED.VIS.GEN ---
History of Present Illness Chief Complaint: General Illness Detail of Chief Complaint: Polydipsia, polyuria and elevated blood sugar Informant: Patient Onset: Days Context: Sudden Onset Timing: Continuous, Waxes and wanes Quality: Elevated blood sugar Location: Not applicable Current Severity: Moderate Maximum Severity: Moderate Worsened by: Uncertain Relieved by: Nothing Associated Symptoms: Polyuria, polydipsia, nocturia and blurred vision Narrative: Patient is 60-year-old male with type 1 diabetes who presents because belly blood sugar. He denies fever, chills night sweats. He does report vague sense of not feeling well. He does report blurred vision by ocular. He denies loss of vision or double vision. He denies ringing in his ears, decreased hearing or drainage from his ears. He denies rhinorrhea, congestion or postnasal drainage. He denies sore throat. He denies chest pain or shortness of breath. He denies vomiting or diarrhea presently. He did take Pepto-Bismol several days ago. He states his stool is now black. He no longer has diarrhea. He does report symptoms consistent with hyperglycemia. He denies rash other than dry skin. He also has bites consistent with bedbugs. Prior similar symptoms: No Recent Illness/Hospitalization: No - Past Medical History (1) Coronary atherosclerosis of [place] coronary artery Status: Chronic (2) DM (diabetes mellitus) Status: Chronic (3) Essential hypertension Status: Chronic (4) HLD (hyperlipidemia) Status: Chronic (5) Hiatal hernia Status: Chronic (6) History of ETOH abuse Status: Chronic (7) Hypothyroidism Status: Chronic (8) Old myocardial infarction Status: Chronic Past Medical History - Allergies and Home Meds Allergies/Adverse Reactions: Allergies diphenhydramine HCl [From Benadryl] Allergy (Verified 11/24/20 10:08) Rash Penicillins Allergy (Verified 11/24/20 10:08) Rash venom-honey bee [bee venom (honey bee)] Allergy (Verified 11/24/20 10:08) Swelling Primary Care Physician: Sushant Fernandez MD [Primary Care Provider] - Prior records reviewed: Yes Surgical History: herniorrhaphy, total knee arthroplasty, - - 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 Lives: Alone Smoking Status: Never smoker Alcohol: Sober Drugs: None - Family History Paternal Family History: Reports: Heart Disease - History of [place]/CAD, unclear age., Pulmonary Disease - Father from emphysema Additional Family History: No heart disease Maternal Family History: Reports: Unknown - Patient notes that he does not know his maternal family history, she neatly following his secondary to hemorrhaging. Review of Systems General: Reports: Malaise. Denies: Chills, Fever, Subjective, Sweats Eyes: Reports: Blurred Vision - bilaterally. Denies: Visual changes - bilaterally, Diplopia ENT: Denies: Rhinorrhea, Sore throat Cardiovascular: Denies: Chest pain, Palpitations Respiratory: Denies: Dyspnea, Cough, Sputum, Dyspnea on exertion, Orthopnea Gastrointestinal: Denies: Abdominal pain, Nausea, Vomiting, Diarrhea Genitourinary: Reports: Frequency. Denies: Dysuria, Hematuria Musculoskeletal: Denies: Myalgias, Arthralgias, Neck pain, Back pain, Swelling, Extremity Pain Skin: Denies: Rash, Wounds Neurological: Reports: Weakness. Denies: Headache, Parasthesia, Numbness Psych: Reports: Depression Endocrine: Reports: Polyuria, Polydipsia Hematologic: Denies: Easy bruising, Easy bleeding Physical Exam Vital Signs/Narrative: Vital Signs Temp Pulse Resp BP Pulse Ox 11/24/20 12:29 77 16 139/82 H 97 11/24/20 10:08 97.2 F L 83 18 145/90 H 95 Inital Vital Signs reviewed: Yes General: Well nourished, Well developed, No Acute Distress Head: Normocephalic, Atraumatic Eyes: Perrl, EOMI ENT: Moist mucous membranes, No rhinorrhea, TM's clear Neck: Supple, Nontender, No lymphadenopathy, No JVD Cardiovascular: Regular rate, Regular rhythm, No murmurs, Normal S1, Normal S2 Respiratory: No distress, CTA bilaterally, Chest nontender Abdomen: Soft, Nontender, Nondistended, Normal bowel sounds, No masses Rectal: Deferred Back: Nontender, Normal Inspection Extremities: Nontender, No edema Skin: Normal color, No rash, No Trauma. Negative for: Cyanosis, Diaphoresis, Jaundice Neurological: Alert, Oriented x3, Cranial nerves II-XII grossly intact, Normal Strength, Normal Sensation Psychological: Normal affect, Normal Mood Diagnostic/Tx/Re-eval Laboratory Results 11/24/20 11/24/20 11/24/20 11:27 11:31 11:31 WBC 7.6 RBC 5.53 Hgb 15.8 Hct 44.6 MCV 80.7 MCH 28.6 MCHC 35.4 RDW Std Deviation 36.9 RDW Coeff of Manjinder 12.8 Plt Count 212 MPV 9.4 Immature Gran % (Auto) 0.300 Neut % (Auto) 59.0 Lymph % (Auto) 29.1 [place] % (Auto) 7.2 Eos % (Auto) 3.7 Baso % (Auto) 0.7 Absolute Neuts (auto) 4.5 Absolute Lymphs (auto) 2.21 Nucleated RBC % 0 Sodium 135 L Potassium 3.3 L Chloride 99 Carbon Dioxide 28.0 Anion Gap 8 BUN 9 Creatinine 0.89 Estim Creat Clear Calc 111.24 Est GFR (MDRD) Af Amer 112 Est GFR (MDRD) Non-Af 93 BUN/Creatinine Ratio 10.1 Glucose 411 H Calcium 8.9 POC Glucose 406 H 11/24/20 13:21 WBC RBC Hgb Hct MCV MCH MCHC RDW Std Deviation RDW Coeff of Manjinder Plt Count MPV Immature Gran % (Auto) Neut % (Auto) Lymph % (Auto) [place] % (Auto) Eos % (Auto) Baso % (Auto) Absolute Neuts (auto) Absolute Lymphs (auto) Nucleated RBC % Sodium Potassium Chloride Carbon Dioxide Anion Gap BUN Creatinine Estim Creat Clear Calc Est GFR (MDRD) Af Amer Est GFR (MDRD) Non-Af BUN/Creatinine Ratio Glucose Calcium POC Glucose 374 H CBC and differential unremarkable. Blood sugar is elevated 411 with a normal CO2 and anion gap. Patient was treated with 8 units of insulin. Repeat blood sugar is 374. He received additional dose of insulin. He was instructed to follow-up with his primary care physician. ED Disposition - Plan for ED Patient: Disposition: Home or Assisted Living Diagnosis: Hyperglycemia due to type 1 diabetes mellitus, Dyshidrotic eczema, Bug bite of face without infection Instructions: ED Diabetic Hyperglycemia, ED Atopic Dermatitis (Adult), ED Bedbug Bites Referrals: Sushant Fernandez MD [Primary Care Provider] - 5-7 Days
[2020-11-24 14:04] VITALS: BP 154/87; PULSE 89; RESP 16; O2SAT 99
--- NOTE | 2020-11-24 14:19 | ED.RN ---
pt did not have contacts to get ride home. [facility] transportation to pick pt up
== END 2020-11-24 14:22 | disposition home or self-care (01) ==
PROVIDERS: Emergency Provider Emergency Medicine; PCP Family Medicine
DX: E10.65 Type 1 diabetes mellitus with hyperglycemia (principal); L30.1 Dyshidrosis [pompholyx]; S00.86XA Insect bite (nonvenomous) of other part of head, initial encounter; I25.10 Atherosclerotic heart disease of native coronary artery without angina pectoris; E03.9 Hypothyroidism, unspecified; E78.5 Hyperlipidemia, unspecified; I10 Essential (primary) hypertension; W57.XXXA Bitten or stung by nonvenomous insect and other nonvenomous arthropods, initial encounter; Z79.4 Long term (current) use of insulin; Z79.82 Long term (current) use of aspirin
CPT/HCPCS: 36415; 80048; 82962; 85025; 99282

== ENCOUNTER 2020-11-25 11:38 | Emergency (ER) | payer MEDICAID, SELFPAY ==
[2020-11-24 10:08] VITALS: BMI 27.6
[2020-11-25 11:39] VITALS: BP 134/81; PULSE 83; RESP 16; TEMP 36.4; O2SAT 95; BMI 31.3
--- NOTE | 2020-11-25 12:01 | ED.DCSUM_ITS ---
History of Present Illness Chief Complaint: Hyperglycemia Informant: Patient Narrative: 60-year-old type I diabetic male presents for hyperglycemia. He tells me he was up here yesterday and had blood work. Review of the chart shows blood sugar was over 400 but he did not have an anion gap and normal CO2. Patient tells me that is worse today. My ask him what his blood sugar was this morning tells me 241. He tells me he only checks his blood sugar once a day. When asked what his insulin therapy is he has a very difficult time telling me. He tells me he put some on the right side of his belly and some in the left side of his belly. Review of the chart shows that he is supposed to be taking Lantus 50 units twice a day with Humalog KwikPen 10 units he tells me he only takes at dinner. Patient states he went to his primary care physician's office but was told that they do not treat hyperglycemia and they tried to get me in upstairs but they were all booked. He tells me that he is thirsty and has been urinating more than normal. He cannot tell me his last hemoglobin A1c. He cannot tell me if he had difficulties with taking Humalog with each meal. He tells me that he takes all of his Lantus in the morning. Patient keeps his eyes closed and arms folded and makes no eye contact with me and appears completely disinterested in any of my questioning or suggestions for him. - Past Medical History (1) Pancreatitis Status: Resolved (2) Chest pain Status: Chronic (3) HLD (hyperlipidemia) Status: Chronic (4) History of ETOH abuse Status: Chronic (5) DM (diabetes mellitus) Status: Chronic (6) TARYN (acute kidney injury) Status: Resolved (7) Essential hypertension Status: Chronic (8) Hypothyroidism Status: Chronic (9) Old myocardial infarction Status: Chronic (10) Hyperosmolar (nonketotic) coma Status: Chronic (11) Dizziness Status: Resolved Past Medical History - Allergies and Home Meds Allergies/Adverse Reactions: Allergies diphenhydramine HCl [From Benadryl] Allergy (Verified 11/24/20 10:08) Rash Penicillins Allergy (Verified 11/24/20 10:08) Rash venom-honey bee [bee venom (honey bee)] Allergy (Verified 01/25/21 10:08) Swelling Primary Care Physician: Sushant Fernandez MD [Primary Care Provider] - Surgical History: herniorrhaphy, total knee arthroplasty, - - 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 Smoking Status: Never smoker Alcohol: Sober Drugs: None - Family History Paternal Family History: Reports: Heart Disease - History of [place]/CAD, unclear age., Pulmonary Disease - Father from emphysema Additional Family History: No heart disease Maternal Family History: Reports: Unknown - Patient notes that he does not know his maternal family history, she neatly following his secondary to hemorrhaging. Review of Systems General: Denies: Chills, Fever, Sweats Eyes: Denies: Visual changes - bilaterally, Diplopia ENT: Denies: Rhinorrhea, Sore throat Cardiovascular: Denies: Chest pain, Palpitations Respiratory: Denies: Dyspnea, Cough, Dyspnea on exertion Gastrointestinal: Denies: Abdominal pain, Nausea, Vomiting, Diarrhea, Melena, Hematochezia Genitourinary: Denies: Dysuria, Hematuria, Frequency Musculoskeletal: Denies: Back pain, Extremity Pain Skin: Denies: Rash, Wounds Neurological: Denies: Headache, Weakness, Numbness Endocrine: Reports: Polyuria, Polydipsia. Denies: Heat intolerance, Cold intolerance Physical Exam Vital Signs/Narrative: Vital Signs Temp Pulse Resp BP Pulse Ox 11/25/20 11:39 97.5 F L 83 16 134/81 H 95 Inital Vital Signs reviewed: Yes General: Well nourished, Well developed, No Acute Distress Head: Normocephalic, Atraumatic Eyes: Perrl, EOMI ENT: Moist mucous membranes, No rhinorrhea Neck: Supple, Nontender Cardiovascular: Regular rate, Regular rhythm, No murmurs Respiratory: No distress, CTA bilaterally, Chest nontender Abdomen: Soft, Nontender, Nondistended, Normal bowel sounds Extremities: Nontender, No edema Skin: Normal color, No rash Neurological: Alert, Oriented x3, Cranial nerves II-XII grossly intact, Normal Strength, Normal Sensation Diagnostic/Tx/Re-eval - Medical Decision Making Accu-Chek here was 465. He will be given 15 units of Lantus. The patient will be reeducated regarding his insulin regimen. I am going to make a suggestion that he check his blood sugar breakfast lunch and dinner and also at bedtime. I think it would also be a good idea for him to take his Humalog twice a day and not once a day unless explicitly told by his primary care provider that that is not what he is supposed to do. In addition if he is hyperglycemic at his meals I would recommend that he take his Lantus with each meal. I recommend that he record these levels and take to his doctor. The sung kirby is rather upset by this stating that were not doing anything for him. I asked him what more he would like to do because he just had blood work yesterday for the same problem that showed that he was not in DKA. Nothing new has changed. He hears confused on his insulin regimen and we are providing some clarity. Patient folds his arms closes eyes and chooses not to speak any further. I specifically asked what more he feels he needs to have done. No response. ED Disposition - Plan for ED Patient: Disposition: Home or Assisted Living Diagnosis: Hyperglycemia due to diabetes mellitus Instructions: ED Diabetic Hyperglycemia Referrals: Sushant Fernandez MD [Primary Care Provider] - 3-5 Days Additional Instructions: According to our records you should be taking Lantus 50 units in the morning and at night. You should check your blood sugar breakfast lunch and dinner and at night and record (not just once in the morning). I would also encourage you to take your Humalog 10 Units at breakfast, lunch, and dinner especially if your readings are higher than normal.
[2020-11-25 12:11] LABS: Bedside Glucose 465 mg/dL (70-110)
[2020-11-25] MEDS: Insulin Lispro 100 UNIT/ML INSULN.PEN 15 UNIT SC (12:33)
== END 2020-11-25 12:33 | disposition home or self-care (01) ==
LOC: ED 12:23
PROVIDERS: Emergency Provider Emergency Medicine; PCP Family Medicine
DX: E10.65 Type 1 diabetes mellitus with hyperglycemia (principal); Z79.4 Long term (current) use of insulin
CPT/HCPCS: 82962; 99282

== ENCOUNTER 2021-05-16 07:29 | Emergency (ER) | payer MEDICAID, SELFPAY ==
[2021-05-16 07:30] VITALS: BP 163/96; PULSE 71; RESP 18; TEMP 36.6; O2SAT 96; BMI 25.6
--- NOTE | 2021-05-16 07:43 | EDS_ITS ---
HPI HPI - Fall History of Present Illness Chief Complaint: Back Narrative Narrative: Patient presenting for evaluation secondary to a fall and back pain. Patient states that about 4 days ago he lost his balance, fell and struck his back in the bathroom. He thinks that he potentially hit it on the toilet. Patient states that he has been dealing with a right sided back pain since then and feels as if there is some swelling in the region. He states that he did not hit his head did not lose consciousness. He denies any visual changes numbness or weakness. He states that he has had a continuous pain that is worse with palpation and movement. Patient is not on any sort of anticoagulants. He denies any hematuria. Review of systems otherwise negative. [facility] Medical History Diabetes Hyperlipidemia Hypertension Myocardial infarct Home Medications atorvastatin 40 mg PO QHS 08/16/13 [History Last Taken 10/30/19] levothyroxine 175 mcg PO DAILY 08/16/13 [History Last Taken 10/31/19] lisinopril 10 mg PO DAILY 08/16/13 [History Last Taken 10/31/19] aspirin 81 mg PO DAILY@0800 11/11/13 [History Last Taken 10/31/19] omeprazole 20 mg PO DAILY 11/11/13 [History Last Taken 10/31/19] albuterol sulfate [Ventolin HFA] 1 - 2 puff INHALATION Q4H PRN PRN #1 inhaler 05/17/17 [Rx Last Taken 1 Week Ago ~02/13/18] metformin 500 mg PO BID 05/02/19 [History Last Taken 10/31/19] insulin glargine 50 units SUBCUT BID pen 05/12/19 [Rx Last Taken 10/31/19] meloxicam 15 mg PO DAILY PRN PRN #10 tab 09/25/19 [Rx Last Taken 10/31/19] acetaminophen 500 mg PO Q6H PRN PRN #20 tab 10/16/19 [Rx Last Taken Unknown] insulin lispro 10 unit SUBCUT DAILY 01/03/20 [History Last Taken Unknown] ondansetron 4 mg PO Q6H PRN PRN #14 tab 09/14/20 [Rx Last Taken Unknown] lidocaine [Lidoderm] 1 patch TOPICAL DAILY #15 ea 05/16/21 [Rx Last Taken Unknown] Allergy/AdvReac Type Severity Reaction Status Date / Time diphenhydramine HCl Allergy Rash Verified 05/16/21 07:34 [From Benadryl] Penicillins Allergy Rash Verified 05/16/21 07:34 venom-honey bee Allergy Swelling Verified 05/16/21 07:34 [bee venom (honey bee)] Surgical History History of coronary artery stent placement Social History Smoking Status: Never smoker ROS ROS ED Constitutional Constitutional ED: Denies fever(s) Eyes Eyes: Denies change in vision Cardiovascular Cardiovascular: Denies chest pain Respiratory/Chest Respiratory/Chest: Denies cough or dyspnea Gastrointestinal Gastrointestinal: Denies abdominal pain Genitourinary Genitourinary ED: Denies hematuria Musculoskeletal Musculoskeletal: Reports back pain Integumentary Denies rash Hematologic/Lymphatic Hematologic/Lymphatic: Denies easy bleeding or easy bruising EXAM Physical Exam Const Vital Signs: 05/16/21 07:30 Temperature 97.9 F Temperature Source Oral Pulse Rate 71 Respiratory Rate 18 Blood Pressure 163/96 H Blood Pressure Mean 118 Pulse Ox 96 Oxygen Delivery Method Room Air Positive well nourished and well developed General Appearance ED: well developed HEENT Reports normocephalic atraumatic Eyes EOMs intact bilaterally Neck full ROM Chest Wall inspection of chest normal Resp normal respiratory effort and clear to auscultation bilaterally Cardio regular rate, regular rhythm and no murmurs Back/Spine Back/Spine Narrative: Tenderness to palpation is noted over the patient's right posterior lower rib cage near the T8-T10 region without any evidence of deformity. Extremity normal to inspection and full ROM Neuro oriented x3 and no sensory deficits noted Sensorium / Orientation: alert Motor Exam: strength 5/5 throughout Psych mental status grossly normal Skin Lesions: no lesions Rashes: no rashes MDM MDM MDM Narrative Medical decision making narrative: Patient presented secondary to rib pain after mechanical fall. Rib series by my personal review as well as radiology shows no fracture, radiology did note that there was some atelectasis in the right lower lobe consistent with the patient's area of injury. Patient likely has a rib contusion at this point. Patient be treated with lidocaine patches, first dose given in the emergency department he was discharged in stable condition. Radiography Diagnostic Testing: Radiology Impression Ribs w/Chest X-Ray 05/16/21 07:59 IMPRESSION: RIBS: Normal x-ray examination of the ribs. CHEST: Underexpansion of the lungs trace right lower lobe atelectasis. Electronically Signed: Zina Caldwell MD at 8:17 EDT Tel , Service support , Discharge Plan Triage Chief Complaint: Back ED Provider: Joseph Wells Dx/Rx/DC Orders Clinical Impression: Contusion of rib on right side Instructions: ED Contusion, Rib Prescriptions: New lidocaine [Lidoderm] 5 % adhesive patch,medicated 1 patch topical DAILY Qty: 15 RF: 0 No Action atorvastatin 40 MG tablet 40 mg PO QHS RF: 0 lisinopril 10 MG tablet 10 mg PO DAILY RF: 0 levothyroxine 112 MCG tablet 175 mcg PO DAILY RF: 0 aspirin 81 MG tablet 81 mg PO DAILY@0800 RF: 0 omeprazole 10 MG capsule 20 mg PO DAILY RF: 0 albuterol sulfate [Ventolin HFA] 1 INHALER inhaler 1 - 2 puff inhalation Q4H PRN PRN (Reason: Wheezing) Qty: 1 RF: 0 metformin 500 MG tablet 500 mg PO BID RF: 0 insulin glargine 100 UNITS/ML insulin pen 50 units subcut BID RF: 0 meloxicam 15 MG tablet 15 mg PO DAILY PRN PRN (Reason: Pain) Qty: 10 RF: 0 acetaminophen 500 MG tablet 500 mg PO Q6H PRN PRN (Reason: Pain/Inflammation) Qty: 20 RF: 0 insulin lispro 100 UNIT/ML insulin pen 10 unit subcut DAILY RF: 0 ondansetron 4 MG tablet 4 mg PO Q6H PRN PRN (Reason: Nausea) Qty: 14 RF: 0 Primary Care Provider: Sushant Fernandez Referrals: Sushant Fernandez MD [Primary Care Provider] - As Needed Disposition Disposition: Home, Self Care
--- NOTE | 2021-05-16 07:59 | RAD_ITS ---
STUDY: X-RAY - UNILATERAL RIBS ( RIGHT ) WITH CHEST REASON FOR EXAM: Male, 61 years old. Fall TECHNIQUE - RIBS: 4 view(s) of the ribs. TECHNIQUE - CHEST: Single AP portable view of the chest. COMPARISON: 2019 chest x-ray FINDINGS - RIBS: Normal visualized ribs without a demonstrated fracture. FINDINGS - CHEST: The lungs are underexpanded compared to prior study. There is stable elevation right hemidiaphragm compared to the left. This is a line of the AP nature of the study. There is minimal right lower lobe platelike atelectasis. There is no demonstrated pleural abnormality. Normal size heart. Normal mediastinum and marcie. Normal visualized pulmonary arteries. Normal visualized aortic arch and descending thoracic aorta. Normal visualized thoracic spine. Normal visualized ribs, clavicles, and shoulders. There is no demonstrated abnormality of the visualized soft tissue structures of the upper abdomen. RAD/Ribs Uni Min 3V w/PA Chest IMPRESSION: RIBS: Normal x-ray examination of the ribs. CHEST: Underexpansion of the lungs trace right lower lobe atelectasis. Electronically Signed: Zina Caldwell MD at 8:17 EDT Tel , Service support ,
[2021-05-16] MEDS: Lidocaine 5% Patch 1 PATCH TOPICAL (08:44)
[2021-05-16 08:47] VITALS: PULSE 88; RESP 18; O2SAT 97
== END 2021-05-16 08:47 | disposition home or self-care (01) ==
PROVIDERS: Emergency Provider Emergency Medicine; PCP Family Medicine
DX: S20.211A Contusion of right front wall of thorax, initial encounter (principal); I25.2 Old myocardial infarction; E11.9 Type 2 diabetes mellitus without complications; E78.5 Hyperlipidemia, unspecified; I10 Essential (primary) hypertension; Z79.4 Long term (current) use of insulin; Z79.82 Long term (current) use of aspirin; Z79.899 Other long term (current) drug therapy; W01.0XXA Fall on same level from slipping, tripping and stumbling without subsequent striking against object, initial encounter
CPT/HCPCS: 71101; 99285

== ENCOUNTER 2021-10-11 11:48 | Emergency (ER) | payer MEDICAID, SELFPAY ==
[2021-10-11 11:49] VITALS: BP 126/85; PULSE 88; RESP 16; TEMP 36.6; O2SAT 96; BMI 28.2
--- NOTE | 2021-10-11 12:30 | RAD_ITS ---
STUDY: X-RAY CHEST REASON FOR EXAM: Male, 61 years old. Chest pain TECHNIQUE: Frontal view of the chest COMPARISON: 05/16/21 FINDINGS: The lungs are clear. There are no pleural effusions. There is no pneumothorax. The heart is normal in size. The visualized osseous structures are within normal limits. RAD/Chest 1 View (Portable) IMPRESSION: No acute thoracic pathology. Electronically Signed: Aden Toriibo MD at 14:19 EST Tel , Service support ,
--- NOTE | 2021-10-11 12:31 | EKG12_ITS ---
Test Reason : NAUSEA Blood Pressure : / mmHG Vent. Rate : 080 BPM Atrial Rate : 080 BPM P-R Int : 178 ms QRS Dur : 088 ms QT Int : 400 ms P-R-T Axes : 047 -47 021 degrees QTc Int : 461 ms Normal sinus rhythm Left anterior fascicular block Poor R wave progression Abnormal ECG Confirmed by CHRISTOPH TRACY, NAVEED ([id number]), editor managing director JADEN HERNANDEZ ([id number]) on 10/14/2021 10:40:05 AM Referred By: SCOTTIE Confirmed By:NAVEED HAWTHORNE MD
--- NOTE | 2021-10-11 12:32 | EX.ED.DYSGE1 ---
HPI History of Present Illness Chief Complaint: Nausea/Vomiting Detail of Chief Complaint: Not feeling well times about 1 hour Informant: patient Narrative Narrative: Patient presents to the emergency department with complaint of just generalized weakness and not feeling well that started about an hour ago. Patient states that he was sitting in fishing at the time of the symptoms. Patient had some mild nausea but no vomiting. Patient tells me he had chest pain last night that lasted about an hour was a heaviness in his chest without any radiation. Patient states it felt similar to what he had when he had his heart attack in 1994. Patient denies recent illness. Patient states that when he woke up this morning he felt fine. He has had his Covid vaccine in has not had any Covid exposures. Patient does have a chronic cough that he has had for years. Patient no urinary symptoms. He denies any blood in his stool or black tarry stool. He denies abdominal pain. Prior similar symptoms: No PFSH PFS Medical History Diabetes Hyperlipidemia Hypertension Myocardial infarct Home Medications atorvastatin 40 mg PO QHS 08/16/13 [History Last Taken 10/30/19] levothyroxine 175 mcg PO DAILY 08/16/13 [History Last Taken 10/31/19] lisinopril 10 mg PO DAILY 08/16/13 [History Last Taken 10/31/19] aspirin 81 mg PO DAILY@0800 11/11/13 [History Last Taken 10/31/19] omeprazole 20 mg PO DAILY 11/11/13 [History Last Taken 10/31/19] albuterol sulfate [Ventolin HFA] 1 - 2 puff INHALATION Q4H PRN PRN #1 inhaler 05/17/17 [Rx Last Taken 1 Week Ago ~02/13/18] metformin 500 mg PO BID 05/02/19 [History Last Taken 10/31/19] insulin glargine 50 units SUBCUT BID pen 05/12/19 [Rx Last Taken 10/31/19] meloxicam 15 mg PO DAILY PRN PRN #10 tab 09/25/19 [Rx Last Taken 10/31/19] acetaminophen 500 mg PO Q6H PRN PRN #20 tab 10/16/19 [Rx Last Taken Unknown] insulin lispro 10 unit SUBCUT DAILY 01/03/20 [History Last Taken Unknown] ondansetron 4 mg PO Q6H PRN PRN #14 tab 09/14/20 [Rx Last Taken Unknown] lidocaine [Lidoderm] 1 patch TOPICAL DAILY #15 ea 05/16/21 [Rx Last Taken Unknown] Allergy/AdvReac Type Severity Reaction Status Date / Time diphenhydramine HCl Allergy Rash Verified 10/11/21 11:51 [From Benadryl] Penicillins Allergy Rash Verified 10/11/21 11:51 venom-honey bee Allergy Swelling Verified 10/11/21 11:51 [bee venom (honey bee)] Surgical History History of coronary artery stent placement Social History Smoking Status: Never smoker ROS ROS ED Constitutional Constitutional ED: Reports systems reviewed and no addt'l complaints, except as documented; Denies body ache(s), change in weight or chills Eyes Eyes: Denies acute decrease in peripheral vision, change in vision, double vision or loss of vision ENT ENT ED: Reports none; Denies ear pain, lip swelling, loss taste/smell, neck pain, otalgia or sore throat Cardiovascular Cardiovascular: Reports none and chest pain; Denies abdominal pain, chest pain with activity, leg edema, lightheadedness, palpitations, rapid heart rate or syncope Respiratory/Chest Respiratory/Chest: Reports none and cough; Denies change in mental status, dry cough, dyspnea, hemoptysis, shortness of breath at rest or shortness of breath with exertion Gastrointestinal Gastrointestinal: Reports none and nausea; Denies abdominal pain, change in stool character, diarrhea, hematemesis, hematochezia, melena, rectal bleeding or vomiting Genitourinary Genitourinary ED: Reports none; Denies abdominal discomfort, anuria, dysuria, genital pain or polyuria Musculoskeletal Musculoskeletal: Reports none; Denies arthralgias, back pain, difficulty walking, extremity pain, muscle weakness or myalgias Integumentary Reports none; Denies abscess or rash Neurologic Neurologic: Reports none and weakness; Denies abnormal gait, confusion, focal weakness, frequent falls, headache(s), loss of vision, numbness, paresthesias, radicular pain or vertigo Psychiatric Psychiatric: Reports systems reviewed and no addt'l complaints, except as documented and none; Denies behavioral changes, confusion, difficulty concentrating, hallucinations, suicidal ideation, tactile hallucinations or visual hallucinations Endocrine Endocrinology: Denies none, cold intolerance, excessive sweating, fatigue or heat intolerance Hematologic/Lymphatic Hematologic/Lymphatic: Reports none; Denies anemia, easy bleeding or easy bruising Allergic/Immunologic Allergic/Immunologic ED: Denies as per HPI, none, lip swelling, mouth swelling, throat swelling, tongue swelling or hives EXAM Physical Exam Const Vital Signs: 10/11/21 11:49 Temperature 97.8 F Temperature Source Temporal Pulse Rate 88 Respiratory Rate 16 Blood Pressure 126/85 H Blood Pressure Mean 98 Pulse Ox 96 Oxygen Delivery Method Room Air Positive well nourished and well developed General Appearance ED: well developed and NAD HEENT Reports TM's clear and moist mucous membranes normocephalic and atraumatic; Negative for trauma or tenderness Tympanic Membrane ED: Yes TM's clear Eyes PERRL and EOMs intact bilaterally General Eye ED: Negative for pale conjunctiva or scleral icterus Neck no lymphadenopathy, supple and no JVD General: Negative for tenderness Chest Wall inspection of chest normal and palpation of chest normal Chest: Negative for tenderness Resp normal respiratory effort and clear to auscultation bilaterally Effort and Inspection: Negative for respiratory distress or pain with movement Auscultation: Negative for rhonchi, wheezes or diminished lung sounds Cardio regular rate, regular rhythm, S1 normal heart sound, S2 normal heart sound and no murmurs Peripheral Pulses: pulses 2+ throughout GI normal to inspection, nondistended, normoactive bowel sounds, soft to palpation, non-tender, non-distended and no masses Back/Spine no CVA tenderness and no thoracic nor lumbar tenderness Extremity normal to inspection General Extremety ED: Negative for edema General Extremity: Negative for edema Neuro oriented x3, CN's II-XII intact bilaterally, no sensory deficits noted and gait normal Sensorium / Orientation: awake, alert, oriented to person, oriented to place and oriented to time Motor Exam: strength 5/5 throughout and strength abnormal Psych mental status grossly normal Skin no rashes or lesions noted and no wounds MDM MDM MDM Narrative Medical decision making narrative: IV line established on arrival. Patient had labs that were unremarkable other than a elevated blood glucose over 400. Patient received regular insulin 12 units subcu. Blood glucose improved into the 300s. At this point etiology of her his weakness is unclear. I advised patient to monitor his blood glucose and take his medications regularly. Lab Data Attestation: I reviewed the patient's lab results. Labs: Laboratory Results - last 24 hr 10/11/21 10/11/21 10/11/21 12:40 12:40 15:00 WBC 7.9 RBC 5.35 Hgb 15.3 Hct 43.5 MCV 81.3 MCH 28.6 MCHC 35.2 RDW Std Deviation 37.8 RDW Coeff of Manjinder 12.9 Plt Count 209 MPV 9.7 Immature Gran % (Auto) 0.400 Neut % (Auto) 78.0 H Lymph % (Auto) 12.7 L Pratt % (Auto) 6.3 Eos % (Auto) 2.1 Baso % (Auto) 0.5 Absolute Neuts (auto) 6.2 Absolute Lymphs (auto) 1.01 Nucleated RBC % 0 Sodium 135 L Potassium 4.0 Chloride 101 Carbon Dioxide 28.0 Anion Gap 6 BUN 14 Creatinine 0.95 Estim Creat Clear Calc 102.91 Est GFR (MDRD) Af Amer 104 Est GFR (MDRD) Non-Af 86 BUN/Creatinine Ratio 14.8 Glucose 456 H* Calcium 9.0 Total Bilirubin 0.50 AST 7 L ALT 14 L Alkaline Phosphatase 94 Troponin I High Sens < 3 L Total Protein 7.3 Albumin 3.6 Globulin 3.7 Albumin/Globulin Ratio 1.0 Urine Color Yellow Urine Clarity Clear Urine pH 6.0 Ur Specific [place] 1.020 Urine Protein 15 H Urine Glucose (UA) 1000 H Urine Ketones Negative Urine Occult Blood Negative Urine Nitrite Negative Urine Bilirubin Negative Urine Urobilinogen Normal Ur Leukocyte Esterase Negative Urine RBC 0 SEEN Urine WBC 0-5 SEEN Ur Squamous Epith Cells 0-5 SEEN Urine Bacteria 0 SEEN Urine Mucus 0 SEEN POC Glucose 10/11/21 15:30 WBC RBC Hgb Hct MCV MCH MCHC RDW Std Deviation RDW Coeff of Manjinder Plt Count MPV Immature Gran % (Auto) Neut % (Auto) Lymph % (Auto) Pratt % (Auto) Eos % (Auto) Baso % (Auto) Absolute Neuts (auto) Absolute Lymphs (auto) Nucleated RBC % Sodium Potassium Chloride Carbon Dioxide Anion Gap BUN Creatinine Estim Creat Clear Calc Est GFR (MDRD) Af Amer Est GFR (MDRD) Non-Af BUN/Creatinine Ratio Glucose Calcium Total Bilirubin AST ALT Alkaline Phosphatase Troponin I High Sens Total Protein Albumin Globulin Albumin/Globulin Ratio Urine Color Urine Clarity Urine pH Ur Specific [place] Urine Protein Urine Glucose (UA) Urine Ketones Urine Occult Blood Urine Nitrite Urine Bilirubin Urine Urobilinogen Ur Leukocyte Esterase Urine RBC Urine WBC Ur Squamous Epith Cells Urine Bacteria Urine Mucus POC Glucose 309 H Radiography Chest X-Ray - ED: 1 View Diagnostic Testing: Clinical Impression(s) from Imaging Studies Chest X-Ray 10/11/21 12:30 IMPRESSION: No acute thoracic pathology. Electronically Signed: Aden Toribio MD at 14:19 EST Tel , Service support , 1 view chest x-ray obtained interpreted by myself as nothing acute. EKG Initial EKG: Attestation: I personally reviewed and interpreted this EKG as follows: Comments: This rhythm with a ventricular rate of 80 bpm with a left anterior fascicular block Discharge Plan Triage Chief Complaint: Nausea/Vomiting ED Provider: Dallas Borrero Dx/Rx/DC Orders Clinical Impression: Weakness, Acute hyperglycemia Instructions: ED Diabetic Hyperglycemia, ED Weakness (Uncertain Cause) Prescriptions: No Action atorvastatin 40 MG tablet 40 mg PO QHS RF: 0 lisinopril 10 MG tablet 10 mg PO DAILY RF: 0 levothyroxine 112 MCG tablet 175 mcg PO DAILY RF: 0 aspirin 81 MG tablet 81 mg PO DAILY@0800 RF: 0 omeprazole 10 MG capsule 20 mg PO DAILY RF: 0 albuterol sulfate [Ventolin HFA] 1 INHALER inhaler 1 - 2 puff inhalation Q4H PRN PRN (Reason: Wheezing) Qty: 1 RF: 0 metformin 500 MG tablet 500 mg PO BID RF: 0 insulin glargine 100 UNITS/ML insulin pen 50 units subcut BID RF: 0 meloxicam 15 MG tablet 15 mg PO DAILY PRN PRN (Reason: Pain) Qty: 10 RF: 0 acetaminophen 500 MG tablet 500 mg PO Q6H PRN PRN (Reason: Pain/Inflammation) Qty: 20 RF: 0 insulin lispro 100 UNIT/ML insulin pen 10 unit subcut DAILY RF: 0 ondansetron 4 MG tablet 4 mg PO Q6H PRN PRN (Reason: Nausea) Qty: 14 RF: 0 lidocaine [Lidoderm] 5 % adhesive patch,medicated 1 patch topical DAILY Qty: 15 RF: 0 Primary Care Provider: Care Physician,No Primary Referrals: Sushant Fernandez MD [NON-STAFF] - 3-5 Days Care Physician,No Primary [Primary Care Provider] - Disposition Disposition: Home, Self Care
[2021-10-11 12:54] LABS: Absolute Lymphocyte Count 1.01 X10^3/uL (0.83-4.51); Absolute Neutrophil Count 6.2 X10^3/uL (2.0-7.7); Basophil# 0.04 X10^3/uL; Basophil% 0.5 % (0-1); Eosinophil# 0.17 X10^3/uL; Eosinophils% 2.1 % (0-5); Hematocrit 43.5 % (40-54); Hemoglobin 15.3 g/dL (13.0-16.5); Lymphocyte # 1.01 X10^3/ul (0.83-4.51); Lymphocyte % 12.7 % (19-41); Mean Corp Hgb Conc 35.2 g/dL (32-36); Mean Corpuscular Hgb 28.6 pg (27.0-32.0); Mean Corpuscular Volume 81.3 fL (80-94); Mean Platelet Vol. 9.7 fl (6.2-12.0); Monocyte% 6.3 % (0-10); NRBC Flagged by Analyzer 0 % (0-5); Neutrophil # 6.19 X10^3/uL (2.7-7.7); Platelet Count 209 K/mm3 (150-450); RBC Distribution Width CV 12.9 % (11.6-14.6); RBC Distribution Width SD 37.8 fl (35.1-43.9); Red Blood Count 5.35 M/mm3 (4.6-6.2); White Blood Count 7.9 K/mm3 (4.4-11.0)
[2021-10-11] MEDS: 0.9% Normal Saline 1,000 ML 150 ML IV (12:55)
[2021-10-11 13:11] LABS: AST(SGOT) 7 U/L (15-37); Alanine Aminotransfer ALT/SGPT 14 U/L (16-61); Albumin, Serum 3.6 g/dL (3.2-5.0); Alkaline Phosphatase 94 U/L (45-117); Anion Gap 6 (5-15); BUN 14 mg/dL (7-18); BUN/Creat Ratio 14.8 RATIO (10-20); Chloride 101 mmol/L (98-107); Creatinine, Serum 0.95 mg/dL (0.70-1.30); EST Glomerular Filtration Rate 86 mL/min (>60); Est Glom Filt Rate - Afr Amer 104 mL/min (>60); Estimated Creatinine Clearance 102.91 ml/min; Globulin 3.7 g/dL (2.2-4.2); Glucose 456 mg/dL (74-106); Protein, Total 7.3 g/dL (6.4-8.2); Sodium Level 135 mmol/L (136-145); Troponin-I HS < 3 pg/mL (3.0-78.0)
[2021-10-11] MEDS: Insulin Lispro 100 UNIT/ML INSULN.PEN 12 UNIT SC (14:10)
[2021-10-11 15:10] LABS: Bacteria 0 SEEN /hpf (None Seen); Mucous, Urine 0 SEEN /hpf (<or=2+); Red Blood Cells-Urine 0 SEEN /hpf (0-5)
[2021-10-11 15:17] LABS: Color, Urine Yellow (Yellow); Glucose, Dipstick 1000 mg/dl (Normal); Ketone-Dipstick Negative (Negative); Leukocyte Esterase-Dipstick Negative /ul (Negative); Nitrite-Dipstick Negative (Negative); Occult Blood-Urine Negative /ul (Negative); Protein-Dipstick 15 mg/dl (Negative); Urine Bilirubin Dipstick Negative (Negative); Urine Clarity Clear (Clear); Urine Urobilinogen Normal (Normal)
[2021-10-11 15:23] LABS: Squamous Epithelial Cells - UA 0-5 SEEN /hpf (0-5); White Blood Cells 0-5 SEEN /hpf (0-5)
[2021-10-11 15:35] LABS: Bedside Glucose 309 mg/dL (70-110)
[2021-10-11 16:10] VITALS: BP 132/71; PULSE 87; RESP 15; O2SAT 99
== END 2021-10-11 16:12 | disposition home or self-care (01) ==
PROVIDERS: Emergency Provider Emergency Medicine
DX: R53.1 Weakness (principal); R73.9 Hyperglycemia, unspecified; I25.2 Old myocardial infarction
CPT/HCPCS: 71045; 80053; 81001; 82962; 84484; 85025; 87426; 93005; 99283; J7030; A4216

== ENCOUNTER 2021-10-16 17:20 | Emergency (ER) | payer MEDICAID, SELFPAY ==
[2021-10-16 17:21] VITALS: BP 124/83; PULSE 85; RESP 18; TEMP 36.9; O2SAT 96; BMI 27.7
[2021-10-16 17:35] LABS: Bedside Glucose 409 mg/dL (70-110)
--- NOTE | 2021-10-16 17:36 | EKG12_ITS ---
Test Reason : WEAKNESS Blood Pressure : / mmHG Vent. Rate : 083 BPM Atrial Rate : 083 BPM P-R Int : 178 ms QRS Dur : 096 ms QT Int : 388 ms P-R-T Axes : 052 -58 030 degrees QTc Int : 455 ms Normal sinus rhythm Left axis deviation Incomplete right bundle branch block Poor R wave progression Abnormal ECG Confirmed by CHRISTOPH TRACY, NAVEED ([id number]), graphics editor JADEN HERNANDEZ ([id number]) on 10/19/2021 11:06:27 AM Referred By: CARMELINA Confirmed By:NAVEED HAWTHOREN MD
--- NOTE | 2021-10-16 17:37 | EX.ED.DYSGE1 ---
HPI History of Present Illness Chief Complaint: Weakness Informant: patient Onset/Context/Timing Onset: Today Narrative Narrative: Patient presents after generalized weakness and feeling that his blood sugar is high. Patient states he ate breakfast around 1130 this morning and took his blood sugar at that time. It was in the mid 100 range. He did take his insulin. He did not eat lunch was out to eat tonight. He was drinking a Bahama mama and felt like his blood sugar was spiking. He denies chest pain. He states he has had cough and diarrhea recently. No fever or chills. On arrival to the emergency room blood sugar is 409. [facility] Medical History Diabetes Hyperlipidemia Hypertension Myocardial infarct Home Medications atorvastatin 40 mg PO QHS 08/16/13 [History Last Taken 10/30/19] levothyroxine 175 mcg PO DAILY 08/16/13 [History Last Taken 10/31/19] lisinopril 10 mg PO DAILY 08/16/13 [History Last Taken 10/31/19] aspirin 81 mg PO DAILY@0800 11/11/13 [History Last Taken 10/31/19] omeprazole 20 mg PO DAILY 11/11/13 [History Last Taken 10/31/19] albuterol sulfate [Ventolin HFA] 1 - 2 puff INHALATION Q4H PRN PRN #1 inhaler 05/17/17 [Rx Last Taken 1 Week Ago ~02/13/18] metformin 500 mg PO BID 05/02/19 [History Last Taken 10/31/19] insulin glargine 50 units SUBCUT BID pen 05/12/19 [Rx Last Taken 10/31/19] meloxicam 15 mg PO DAILY PRN PRN #10 tab 09/25/19 [Rx Last Taken 10/31/19] acetaminophen 500 mg PO Q6H PRN PRN #20 tab 10/16/19 [Rx Last Taken Unknown] insulin lispro 10 unit SUBCUT DAILY 01/03/20 [History Last Taken Unknown] ondansetron 4 mg PO Q6H PRN PRN #14 tab 09/14/20 [Rx Last Taken Unknown] lidocaine [Lidoderm] 1 patch TOPICAL DAILY #15 ea 05/16/21 [Rx Last Taken Unknown] Allergy/AdvReac Type Severity Reaction Status Date / Time diphenhydramine HCl Allergy Rash Verified 10/16/21 17:22 [From Benadryl] Penicillins Allergy Rash Verified 10/16/21 17:22 venom-honey bee Allergy Swelling Verified 10/16/21 17:22 [bee venom (honey bee)] Surgical History History of coronary artery stent placement Social History Smoking Status: Never smoker ROS ROS ED Constitutional Constitutional ED: Denies chills or fever(s) Eyes Eyes: Denies change in vision ENT ENT ED: Denies sore throat Cardiovascular Cardiovascular: Denies chest pain Respiratory/Chest Respiratory/Chest: Reports cough; Denies dyspnea Gastrointestinal Gastrointestinal: Reports diarrhea; Denies abdominal pain, nausea or vomiting Genitourinary Genitourinary ED: Denies dysuria Musculoskeletal Musculoskeletal: Denies back pain Integumentary Denies rash Neurologic Neurologic: Reports weakness; Denies headache(s) Allergic/Immunologic Allergic/Immunologic ED: Denies urticaria EXAM Physical Exam Const Vital Signs: 10/16/21 17:21 10/16/21 17:29 10/16/21 19:00 Temperature 98.4 F Temperature Source Temporal Pulse Rate 85 84 Respiratory Rate 18 11 L Respiratory Effort Normal Respiratory Pattern Normal Blood Pressure 124/83 H 131/72 H Blood Pressure Mean 96 91 Pulse Ox 96 Oxygen Delivery Method Room Air 10/16/21 20:19 10/16/21 21:03 10/16/21 22:10 Temperature Temperature Source Pulse Rate 89 97 90 Respiratory Rate 17 18 31 H Respiratory Effort Respiratory Pattern Blood Pressure 108/74 117/73 Blood Pressure Mean 85 87 Pulse Ox Oxygen Delivery Method 10/16/21 23:57 Temperature Temperature Source Pulse Rate 76 Respiratory Rate 19 H Respiratory Effort Respiratory Pattern Blood Pressure 110/73 Blood Pressure Mean 85 Pulse Ox Oxygen Delivery Method Positive well nourished and well developed General Appearance ED: well developed HEENT Reports moist mucous membranes Eyes PERRL and EOMs intact bilaterally Chest Wall inspection of chest normal and palpation of chest normal Resp normal respiratory effort and clear to auscultation bilaterally Cardio regular rate and regular rhythm GI non-tender Auscultation: hypoactive bowel sounds Palpation: soft Extremity normal to inspection Neuro oriented x3 Sensorium / Orientation: alert Psych mental status grossly normal Skin no rashes or lesions noted MDM MDM MDM Narrative Medical decision making narrative: Patient was given a liter of IV fluid. Lab work obtained. Lab Data Attestation: I reviewed the patient's lab results. Labs: Laboratory Results - last 24 hr 10/16/21 10/16/21 10/16/21 17:32 17:55 17:55 WBC 6.9 RBC 5.09 Hgb 14.5 Hct 41.3 MCV 81.1 MCH 28.5 MCHC 35.1 RDW Std Deviation 37.5 RDW Coeff of Manjinder 12.9 Plt Count 209 MPV 9.4 Immature Gran % (Auto) 0.300 Neut % (Auto) 74.1 H Lymph % (Auto) 16.7 L [place] % (Auto) 5.7 Eos % (Auto) 2.6 Baso % (Auto) 0.6 Absolute Neuts (auto) 5.1 Absolute Lymphs (auto) 1.15 Nucleated RBC % 0 Sodium 137 Potassium 3.6 Chloride 102 Carbon Dioxide 27.0 Anion Gap 8 BUN 13 Creatinine 0.85 Estim Creat Clear Calc 115.01 Est GFR (MDRD) Af Amer 117 Est GFR (MDRD) Non-Af 97 BUN/Creatinine Ratio 15.2 Glucose 425 H Calcium 9.0 POC Glucose 409 H 10/16/21 10/16/21 10/16/21 19:31 20:17 21:32 WBC RBC Hgb Hct MCV MCH MCHC RDW Std Deviation RDW Coeff of Manjinder Plt Count MPV Immature Gran % (Auto) Neut % (Auto) Lymph % (Auto) [place] % (Auto) Eos % (Auto) Baso % (Auto) Absolute Neuts (auto) Absolute Lymphs (auto) Nucleated RBC % Sodium Potassium Chloride Carbon Dioxide Anion Gap BUN Creatinine Estim Creat Clear Calc Est GFR (MDRD) Af Amer Est GFR (MDRD) Non-Af BUN/Creatinine Ratio Glucose Calcium POC Glucose 443 H 435 H 327 H 10/16/21 10/16/21 10/17/21 22:07 23:10 00:19 WBC RBC Hgb Hct MCV MCH MCHC RDW Std Deviation RDW Coeff of Manjinder Plt Count MPV Immature Gran % (Auto) Neut % (Auto) Lymph % (Auto) [place] % (Auto) Eos % (Auto) Baso % (Auto) Absolute Neuts (auto) Absolute Lymphs (auto) Nucleated RBC % Sodium Potassium Chloride Carbon Dioxide Anion Gap BUN Creatinine Estim Creat Clear Calc Est GFR (MDRD) Af Amer Est GFR (MDRD) Non-Af BUN/Creatinine Ratio Glucose Calcium POC Glucose 287 H 190 H 139 H 10/17/21 10/17/21 00:53 01:26 WBC RBC Hgb Hct MCV MCH MCHC RDW Std Deviation RDW Coeff of Manjinder Plt Count MPV Immature Gran % (Auto) Neut % (Auto) Lymph % (Auto) [place] % (Auto) Eos % (Auto) Baso % (Auto) Absolute Neuts (auto) Absolute Lymphs (auto) Nucleated RBC % Sodium Potassium Chloride Carbon Dioxide Anion Gap BUN Creatinine Estim Creat Clear Calc Est GFR (MDRD) Af Amer Est GFR (MDRD) Non-Af BUN/Creatinine Ratio Glucose Calcium POC Glucose 149 H 189 H EKG Initial EKG: Attestation: I personally reviewed and interpreted this EKG as follows: Interpretation: Sinus Rhythm (Sinus 83 with no acute ischemia.) Treatment and Re-Evaluation Comments:: After liter IV fluid patient's blood sugar remains significantly elevated around 440. He was given 12 units of subcu lispro. After 1 hour blood sugar had only dropped to 435. He was given additional 10 units of lispro. Blood sugars were checked hourly until baseline reached at 139 and then blood sugar started to elevate again slightly. He was given p.o. diet. At this time patient be discharged home to continue his normal diabetes regimen. Discharge Plan Triage Chief Complaint: Weakness ED Provider: Shania Disla Dx/Rx/DC Orders Clinical Impression: Hyperglycemia, Generalized weakness Instructions: ED Diabetic Hyperglycemia, ED Weakness (Uncertain Cause) Prescriptions: No Action atorvastatin 40 MG tablet 40 mg PO QHS RF: 0 lisinopril 10 MG tablet 10 mg PO DAILY RF: 0 levothyroxine 112 MCG tablet 175 mcg PO DAILY RF: 0 aspirin 81 MG tablet 81 mg PO DAILY@0800 RF: 0 omeprazole 10 MG capsule 20 mg PO DAILY RF: 0 albuterol sulfate [Ventolin HFA] 1 INHALER inhaler 1 - 2 puff inhalation Q4H PRN PRN (Reason: Wheezing) Qty: 1 RF: 0 metformin 500 MG tablet 500 mg PO BID RF: 0 insulin glargine 100 UNITS/ML insulin pen 50 units subcut BID RF: 0 meloxicam 15 MG tablet 15 mg PO DAILY PRN PRN (Reason: Pain) Qty: 10 RF: 0 acetaminophen 500 MG tablet 500 mg PO Q6H PRN PRN (Reason: Pain/Inflammation) Qty: 20 RF: 0 insulin lispro 100 UNIT/ML insulin pen 10 unit subcut DAILY RF: 0 ondansetron 4 MG tablet 4 mg PO Q6H PRN PRN (Reason: Nausea) Qty: 14 RF: 0 lidocaine [Lidoderm] 5 % adhesive patch,medicated 1 patch topical DAILY Qty: 15 RF: 0 Primary Care Provider: Care Physician,No Primary Referrals: Sushant Fernandez MD [NON-STAFF] - 1-2 Weeks Care Physician,No Primary [Primary Care Provider] - Disposition Disposition: Home, Self Care
[2021-10-16] MEDS: 0.9% Normal Saline 1,000 ML 1000 ML IV (17:57)
[2021-10-16 18:02] LABS: Absolute Lymphocyte Count 1.15 X10^3/uL (0.83-4.51); Absolute Neutrophil Count 5.1 X10^3/uL (2.0-7.7); Basophil# 0.04 X10^3/uL; Basophil% 0.6 % (0-1); Eosinophil# 0.18 X10^3/uL; Eosinophils% 2.6 % (0-5); Hematocrit 41.3 % (40-54); Hemoglobin 14.5 g/dL (13.0-16.5); Lymphocyte # 1.15 X10^3/ul (0.83-4.51); Lymphocyte % 16.7 % (19-41); Mean Corp Hgb Conc 35.1 g/dL (32-36); Mean Corpuscular Hgb 28.5 pg (27.0-32.0); Mean Corpuscular Volume 81.1 fL (80-94); Mean Platelet Vol. 9.4 fl (6.2-12.0); Monocyte# 0.39 X10^3/uL; Monocyte% 5.7 % (0-10); NRBC Flagged by Analyzer 0 % (0-5); Neutrophil # 5.09 X10^3/uL (2.7-7.7); Neutrophil % 74.1 % (47-70); Platelet Count 209 K/mm3 (150-450); RBC Distribution Width CV 12.9 % (11.6-14.6); RBC Distribution Width SD 37.5 fl (35.1-43.9); Red Blood Count 5.09 M/mm3 (4.6-6.2); White Blood Count 6.9 K/mm3 (4.4-11.0)
[2021-10-16 18:15] LABS: Anion Gap 8 (5-15); BUN 13 mg/dL (7-18); BUN/Creat Ratio 15.2 RATIO (10-20); Chloride 102 mmol/L (98-107); Creatinine, Serum 0.85 mg/dL (0.70-1.30); EST Glomerular Filtration Rate 97 mL/min (>60); Est Glom Filt Rate - Afr Amer 117 mL/min (>60); Estimated Creatinine Clearance 115.01 ml/min; Glucose 425 mg/dL (74-106); Potassium 3.6 mmol/L (3.5-5.1); Sodium Level 137 mmol/L (136-145)
[2021-10-16 19:00] VITALS: BP 131/72; PULSE 84; RESP 11
[2021-10-16] MEDS: Insulin Lispro 100 UNIT/ML INSULN.PEN 12 UNIT SC (19:21)
[2021-10-16] MEDS: 0.9% Normal Saline 1,000 ML 150 ML IV (19:32)
[2021-10-16 19:35] LABS: Bedside Glucose 443 mg/dL (70-110)
[2021-10-16 20:19] VITALS: BP 108/74; PULSE 89; RESP 17
[2021-10-16 20:26] LABS: Bedside Glucose 435 mg/dL (70-110)
[2021-10-16] MEDS: Insulin Lispro 100 UNIT/ML INSULN.PEN 10 UNIT SC (21:01)
[2021-10-16 21:03] VITALS: BP 117/73; PULSE 97; RESP 18
[2021-10-16 21:36] LABS: Bedside Glucose 327 mg/dL (70-110)
[2021-10-16 22:10] VITALS: PULSE 90; RESP 31
[2021-10-16 22:11] LABS: Bedside Glucose 287 mg/dL (70-110)
[2021-10-16 23:16] LABS: Bedside Glucose 190 mg/dL (70-110)
[2021-10-16 23:57] VITALS: BP 110/73; PULSE 76; RESP 19
[2021-10-17 00:26] LABS: Bedside Glucose 139 mg/dL (70-110)
[2021-10-17 00:55] LABS: Bedside Glucose 149 mg/dL (70-110)
[2021-10-17 01:30] LABS: Bedside Glucose 189 mg/dL (70-110)
[2021-10-17 01:56] VITALS: BP 109/73; PULSE 72; O2SAT 98
== END 2021-10-17 01:59 | disposition home or self-care (01) ==
PROVIDERS: Emergency Provider Emergency Medicine
DX: E11.65 Type 2 diabetes mellitus with hyperglycemia (principal); R53.1 Weakness; I25.2 Old myocardial infarction; E78.5 Hyperlipidemia, unspecified; I10 Essential (primary) hypertension; Z79.4 Long term (current) use of insulin; Z79.82 Long term (current) use of aspirin; Z79.899 Other long term (current) drug therapy; Z79.84 Long term (current) use of oral hypoglycemic drugs; Z95.5 Presence of coronary angioplasty implant and graft
CPT/HCPCS: 80048; 82962; 85025; 87426; 93005; 96360; 96361; 99283; J7030; A4216

== ENCOUNTER 2021-11-09 07:24 | Emergency (ER) | payer MEDICAID, SELFPAY ==
[2021-11-09 07:25] VITALS: PULSE 90; RESP 18; TEMP 36.1; O2SAT 96; BMI 27.8
--- NOTE | 2021-11-09 07:43 | RAD_ITS ---
STUDY: X-RAY CHEST REASON FOR EXAM: Male, 61 years old. Intermittent cough for 3 weeks TECHNIQUE: PA and lateral views of the chest. COMPARISON: 10/11/2021 FINDINGS: Ill-defined parenchymal opacity in the lingula is new since the prior study. There is no demonstrated pleural abnormality. Normal size heart. Normal mediastinum and marcie. Normal visualized pulmonary arteries. There is atherosclerotic tortuosity of the aortic arch and descending thoracic aorta. Normal visualized thoracic spine. Normal visualized ribs, clavicles, and shoulders. There is no demonstrated abnormality of the visualized soft tissue structures of the upper abdomen. RAD/Chest PA and Lateral IMPRESSION: Developing lingular infiltrate suggesting pneumonia. Electronically Signed: Onofre Rivas MD ([place]) at 8:50 EST , Service support ,
--- NOTE | 2021-11-09 07:43 | EX.ED.DYSGE1 ---
HPI History of Present Illness Chief Complaint: Cough Informant: patient Onset/Context/Timing Onset: Weeks (2 weeks) Context: Gradual Onset Current Severity: Moderate Maximum Severity: Moderate Narrative Narrative: Patient presents with 2-week history of congestion and cough. He denies fever. He states he now has rib pain from coughing. [facility] Medical History Diabetes Hyperlipidemia Hypertension Myocardial infarct Home Medications atorvastatin 40 mg PO QHS 08/16/13 [History Last Taken 10/30/19] levothyroxine 175 mcg PO DAILY 08/16/13 [History Last Taken 10/31/19] lisinopril 10 mg PO DAILY 08/16/13 [History Last Taken 10/31/19] aspirin 81 mg PO DAILY@0800 11/11/13 [History Last Taken 10/31/19] omeprazole 20 mg PO DAILY 11/11/13 [History Last Taken 10/31/19] albuterol sulfate [Ventolin HFA] 1 - 2 puff INHALATION Q4H PRN PRN #1 inhaler 05/17/17 [Rx Last Taken 1 Week Ago ~02/13/18] metformin 500 mg PO BID 05/02/19 [History Last Taken 10/31/19] insulin glargine 50 units SUBCUT BID pen 05/12/19 [Rx Last Taken 10/31/19] meloxicam 15 mg PO DAILY PRN PRN #10 tab 09/25/19 [Rx Last Taken 10/31/19] acetaminophen 500 mg PO Q6H PRN PRN #20 tab 10/16/19 [Rx Last Taken Unknown] insulin lispro 10 unit SUBCUT DAILY 01/03/20 [History Last Taken Unknown] ondansetron 4 mg PO Q6H PRN PRN #14 tab 09/14/20 [Rx Last Taken Unknown] lidocaine [Lidoderm] 1 patch TOPICAL DAILY #15 ea 05/16/21 [Rx Last Taken Unknown] levofloxacin 750 mg PO DAILY #4 tab 11/09/21 [Rx Last Taken Unknown] Allergy/AdvReac Type Severity Reaction Status Date / Time diphenhydramine HCl Allergy Rash Verified 11/09/21 07:28 [From Benadryl] Penicillins Allergy Rash Verified 11/09/21 07:28 venom-honey bee Allergy Swelling Verified 11/09/21 07:28 [bee venom (honey bee)] Surgical History History of coronary artery stent placement Social History Smoking Status: Never smoker ROS ROS ED Constitutional Constitutional ED: Denies chills or fever(s) Eyes Eyes: Denies change in vision ENT ENT ED: Reports rhinorrhea; Denies sore throat Cardiovascular Cardiovascular: Reports chest pain Respiratory/Chest Respiratory/Chest: Reports cough, dyspnea and sputum Gastrointestinal Gastrointestinal: Denies abdominal pain, diarrhea, nausea or vomiting Genitourinary Genitourinary ED: Denies dysuria Musculoskeletal Musculoskeletal: Denies back pain Integumentary Denies rash Neurologic Neurologic: Denies headache(s) or weakness Allergic/Immunologic Allergic/Immunologic ED: Denies urticaria EXAM Physical Exam Const Vital Signs: 11/09/21 07:25 11/09/21 08:04 Temperature 96.9 F L Temperature Source Temporal Pulse Rate 90 Respiratory Rate 18 Respiratory Effort Normal Non-Labored Pulse Ox 96 Oxygen Delivery Method Room Air Positive well nourished and well developed General Appearance ED: well developed HEENT Reports moist mucous membranes Eyes PERRL and EOMs intact bilaterally Neck supple Chest Wall inspection of chest normal and palpation of chest normal Resp normal respiratory effort and clear to auscultation bilaterally Cardio regular rate and regular rhythm GI non-tender Palpation: soft Extremity normal to inspection Neuro oriented x3 Sensorium / Orientation: alert Psych mental status grossly normal Skin no rashes or lesions noted MDM MDM Radiography Chest X-Ray - ED: 1 View, Read by ED Physician and Chronic Changes Diagnostic Testing: Clinical Impression(s) from Imaging Studies Chest X-Ray 11/09/21 07:43 IMPRESSION: Developing lingular infiltrate suggesting pneumonia. Electronically Signed: Onofre Rivas MD ([place]) at 8:50 EST , Service support , Treatment and Re-Evaluation Comments:: Chest x-ray appears to show chronic changes per my interpretation. Radiology feels there is a developing left lingular infiltrate. This is consistent with the patient's symptoms. He will be treat with a course of Levaquin, first dose given here. Discharge Plan Triage Chief Complaint: Cough ED Provider: Shania Disla Dx/Rx/DC Orders Clinical Impression: Pneumonia Instructions: ED Pneumonia (Adult) Prescriptions: New levofloxacin 750 mg tablet 750 mg PO DAILY Qty: 4 RF: 0 No Action atorvastatin 40 MG tablet 40 mg PO QHS RF: 0 lisinopril 10 MG tablet 10 mg PO DAILY RF: 0 levothyroxine 112 MCG tablet 175 mcg PO DAILY RF: 0 aspirin 81 MG tablet 81 mg PO DAILY@0800 RF: 0 omeprazole 10 MG capsule 20 mg PO DAILY RF: 0 albuterol sulfate [Ventolin HFA] 1 INHALER inhaler 1 - 2 puff inhalation Q4H PRN PRN (Reason: Wheezing) Qty: 1 RF: 0 metformin 500 MG tablet 500 mg PO BID RF: 0 insulin glargine 100 UNITS/ML insulin pen 50 units subcut BID RF: 0 meloxicam 15 MG tablet 15 mg PO DAILY PRN PRN (Reason: Pain) Qty: 10 RF: 0 acetaminophen 500 MG tablet 500 mg PO Q6H PRN PRN (Reason: Pain/Inflammation) Qty: 20 RF: 0 insulin lispro 100 UNIT/ML insulin pen 10 unit subcut DAILY RF: 0 ondansetron 4 MG tablet 4 mg PO Q6H PRN PRN (Reason: Nausea) Qty: 14 RF: 0 lidocaine [Lidoderm] 5 % adhesive patch,medicated 1 patch topical DAILY Qty: 15 RF: 0 Primary Care Provider: Care Physician,No Primary Referrals: Chad Riddle MD [STAFF PHYSICIAN] - As Needed Care Physician,No Primary [Primary Care Provider] - Disposition Disposition: Home, Self Care
[2021-11-09 09:52] VITALS: BP 138/92; PULSE 74; O2SAT 95
[2021-11-09] MEDS: levoFLOXacin 750 MG Tablet PO (09:56)
== END 2021-11-09 09:58 | disposition home or self-care (01) ==
PROVIDERS: Emergency Provider Emergency Medicine; Visit Provider Emergency Medicine
DX: J18.9 Pneumonia, unspecified organism (principal); E11.9 Type 2 diabetes mellitus without complications; Z79.4 Long term (current) use of insulin; I10 Essential (primary) hypertension; E78.5 Hyperlipidemia, unspecified; Z79.899 Other long term (current) drug therapy; Z79.82 Long term (current) use of aspirin; I25.2 Old myocardial infarction
CPT/HCPCS: 71046; 99283

== ENCOUNTER 2021-11-12 18:52 | Emergency (ER) | payer MEDICAID, SELFPAY ==
[2021-11-12 18:53] VITALS: BP 141/88; PULSE 79; RESP 15; TEMP 36.3; O2SAT 96; BMI 28.2
[2021-11-12 18:55] VITALS: BP 141/88; PULSE 79; RESP 15; TEMP 36.3; O2SAT 96
[2021-11-12 19:06] LABS: Bedside Glucose 345 mg/dL (70-110)
--- NOTE | 2021-11-12 19:21 | EDS_ITS ---
HPI History of Present Illness Chief Complaint: Hyperglycemia Detail of Chief Complaint: Blood sugar 486 at the urgent care Informant: patient Onset/Context/Timing Onset: - (Unknown) Context: - (Unknown) Timing: - (Unknown) Quality: Not applicable Location: Not applicable Current Severity: Moderate Maximum Severity: Moderate Worsened by: Noncompliance with diet and medication Relieved by: Nothing Associated Symptoms Associated Symptoms: Dry mouth, thirst Narrative Narrative: Patient is a type II diabetic requiring insulin who presents because a blood sugar of 486. He admits he is noncompliant with diet or medication. He states he does not care for his doctor. He denies fever, chills night sweats. He denies double vision, blurred vision loss of vision. He denies headache. [place] ringing his ears decreased hearing. He denies sore throat or difficulty breathing. Denies chest pain. He denies nausea, vomiting diarrhea. He denies dysuria, frequency, urgency or hematuria. He denies nocturia. He denies rash. He denies myalgias or arthralgias. He has no other complaints Prior similar symptoms: Yes Recent Illness/Hospitalization: Yes [facility] Medical History Diabetes Hyperlipidemia Hypertension Myocardial infarct Home Medications atorvastatin 40 mg PO QHS 08/16/13 [History Last Taken 10/30/19] levothyroxine 175 mcg PO DAILY 08/16/13 [History Last Taken 10/31/19] lisinopril 10 mg PO DAILY 08/16/13 [History Last Taken 10/31/19] aspirin 81 mg PO DAILY@0800 11/11/13 [History Last Taken 10/31/19] omeprazole 20 mg PO DAILY 11/11/13 [History Last Taken 10/31/19] albuterol sulfate [Ventolin HFA] 1 - 2 puff INHALATION Q4H PRN PRN #1 inhaler 05/17/17 [Rx Last Taken 1 Week Ago ~02/13/18] metformin 500 mg PO BID 05/02/19 [History Last Taken 10/31/19] insulin glargine 50 units SUBCUT BID pen 05/12/19 [Rx Last Taken 10/31/19] meloxicam 15 mg PO DAILY PRN PRN #10 tab 09/25/19 [Rx Last Taken 10/31/19] acetaminophen 500 mg PO Q6H PRN PRN #20 tab 10/16/19 [Rx Last Taken Unknown] insulin lispro 10 unit SUBCUT DAILY 01/03/20 [History Last Taken Unknown] ondansetron 4 mg PO Q6H PRN PRN #14 tab 09/14/20 [Rx Last Taken Unknown] lidocaine [Lidoderm] 1 patch TOPICAL DAILY #15 ea 05/16/21 [Rx Last Taken Unknown] Allergy/AdvReac Type Severity Reaction Status Date / Time diphenhydramine HCl Allergy Rash Verified 11/09/21 07:28 [From Benadryl] Penicillins Allergy Rash Verified 11/09/21 07:28 venom-honey bee Allergy Swelling Verified 11/09/21 07:28 [bee venom (honey bee)] Surgical History History of coronary artery stent placement Social History (Updated 11/12/21 @ 19:[address] Ar Calle MD) household members: none Smoking Status: Never smoker substance use type: does not use ROS ROS ED Constitutional Constitutional ED: Denies chills, fever(s), subjective, sweats or weight loss Eyes Eyes: Denies blurry vision, change in vision or diplopia ENT ENT ED: Denies ear pain, rhinorrhea or sore throat Cardiovascular Cardiovascular: Denies chest pain, orthopnea, palpitations, paroxysmal nocturnal dyspnea or racing heartbeat Respiratory/Chest Respiratory/Chest: Denies cough, dyspnea, dyspnea on exertion, orthopnea or paroxysmal nocturnal dyspnea Gastrointestinal Gastrointestinal: Denies abdominal pain, diarrhea, nausea or vomiting Genitourinary Genitourinary ED: Denies dysuria, hematuria or urinary frequency Musculoskeletal Musculoskeletal: Denies arthralgias, back pain, myalgias or neck pain Integumentary Denies rash Neurologic Neurologic: Denies headache(s) or weakness Endocrine Endocrinology: Denies polydipsia, polyphagia or polyuria EXAM Physical Exam Const Vital Signs: 11/12/21 18:53 11/12/21 18:55 Temperature 97.3 F L 97.3 F L Temperature Source Temporal Temporal Pulse Rate 79 79 Respiratory Rate 15 15 Blood Pressure 141/88 H 141/88 H Blood Pressure Mean 105 105 Pulse Ox 96 96 Oxygen Delivery Method Room Air Room Air Positive well nourished, well developed and unkempt General Appearance ED: unkempt, well developed and NAD; Negative for cyanotic, diaphoretic or pallor HEENT Reports TM's clear and dry mucous membranes Negative for trauma or tenderness Tympanic Membrane ED: Yes TM's clear Mouth ED: Yes dry mucous membranes Mouth: dry mucous membranes Eyes PERRL and EOMs intact bilaterally General Eye ED: Negative for pale conjunctiva or scleral icterus Neck no lymphadenopathy, supple and no JVD Chest Wall inspection of chest normal and palpation of chest normal Resp normal respiratory effort and clear to auscultation bilaterally Effort and Inspection: Negative for pain with movement Cardio regular rate, regular rhythm, S1 normal heart sound, S2 normal heart sound and no murmurs GI normal to inspection, nondistended, normoactive bowel sounds, non-tender and non-distended Palpation: soft Back/Spine no CVA tenderness Cervical Spine: Negative for cervical spine tenderness Thoracic Spine / Upper Back: Negative for thoracic spinal tenderness or paraspinal muscle tenderness Extremity normal to inspection General Extremety ED: Negative for edema or tenderness General Extremity: Negative for edema Neuro oriented x3, CN's II-XII intact bilaterally and no sensory deficits noted Sensorium / Orientation: alert Motor Exam: strength 5/5 throughout Psych Psych Narrative: Flat affect Appearance: unkempt Skin no rashes or lesions noted and no wounds General Skin Exam: Negative for jaundice or pallor MDM MDM MDM Narrative Medical decision making narrative: Since patient clinically is dehydrated 1 L of normal saline was ordered. Insulin was ordered subcu. Will obtain BMP to assess anion gap and renal function. Patient's hyperglycemia is due to noncompliance. He has no symptoms that are concerning for infection, cardiac ischemia etc. Lab Data Attestation: I reviewed the patient's lab results. Labs: Laboratory Results - last 24 hr 11/12/21 11/12/21 11/12/21 18:59 19:23 20:35 Sodium 135 L Potassium TNP Chloride 102 Carbon Dioxide 26.0 Anion Gap 7 BUN 11 Creatinine 0.82 Estim Creat Clear Calc 119.22 Est GFR (MDRD) Af Amer 122 Est GFR (MDRD) Non-Af 101 BUN/Creatinine Ratio 13.4 Glucose 326 H Calcium 8.6 POC Glucose 345 H 324 H Discharge Plan Triage Chief Complaint: Hyperglycemia ED Provider: LucAr Dx/Rx/DC Orders Clinical Impression: Hyperglycemia due to type 2 diabetes mellitus Instructions: ED Diabetic Foot Care, ED Diet: Diabetes Prescriptions: No Action atorvastatin 40 MG tablet 40 mg PO QHS RF: 0 lisinopril 10 MG tablet 10 mg PO DAILY RF: 0 levothyroxine 112 MCG tablet 175 mcg PO DAILY RF: 0 aspirin 81 MG tablet 81 mg PO DAILY@0800 RF: 0 omeprazole 10 MG capsule 20 mg PO DAILY RF: 0 albuterol sulfate [Ventolin HFA] 1 INHALER inhaler 1 - 2 puff inhalation Q4H PRN PRN (Reason: Wheezing) Qty: 1 RF: 0 metformin 500 MG tablet 500 mg PO BID RF: 0 insulin glargine 100 UNITS/ML insulin pen 50 units subcut BID RF: 0 meloxicam 15 MG tablet 15 mg PO DAILY PRN PRN (Reason: Pain) Qty: 10 RF: 0 acetaminophen 500 MG tablet 500 mg PO Q6H PRN PRN (Reason: Pain/Inflammation) Qty: 20 RF: 0 insulin lispro 100 UNIT/ML insulin pen 10 unit subcut DAILY RF: 0 ondansetron 4 MG tablet 4 mg PO Q6H PRN PRN (Reason: Nausea) Qty: 14 RF: 0 lidocaine [Lidoderm] 5 % adhesive patch,medicated 1 patch topical DAILY Qty: 15 RF: 0 Primary Care Provider: Care Physician,No Primary Referrals: Sushant Fernandez MD [NON-STAFF] - 3-5 Days Care Physician,No Primary [Primary Care Provider] - Activity Restrictions/Additional Instructions: 1. It is very important that you are compliant with your medication regimen and diet 2. You need to follow-up with Dr. Fernandez or find a new physician 3. If your blood sugar is greater than 500 return to the emergency department. If it is under 500 give yourself an additional dose of insulin Disposition Disposition: Home, Self Care
[2021-11-12] MEDS: 0.9% Normal Saline 1,000 ML 1000 ML IV (19:24)
[2021-11-12] MEDS: Insulin Lispro 100 UNIT/ML INSULN.PEN 8 UNIT SC (19:24)
--- NOTE | 2021-11-12 19:35 | CM.ED ---
SW Note Referral Source: Case Find Referral Reason: No Primary Care Physician (PCP) SW reviewed chart and noted that patient has no PCP. SW provided patient with list of [facility] and [facility] Physician List for reference. SW also provided patient with handout ?Where to go When?. No other issues or concerns voiced at this time. SW remains available for any additional needs. Plan: Provided patient with PCP information Ashley LOERA
[2021-11-12 19:48] LABS: Anion Gap 7 (5-15); BUN 11 mg/dL (7-18); BUN/Creat Ratio 13.4 RATIO (10-20); Calcium,Total 8.6 mg/dL (8.5-10.1); Chloride 102 mmol/L (98-107); Creatinine, Serum 0.82 mg/dL (0.70-1.30); EST Glomerular Filtration Rate 101 mL/min (>60); Est Glom Filt Rate - Afr Amer 122 mL/min (>60); Estimated Creatinine Clearance 119.22 ml/min; Glucose 326 mg/dL (74-106); Sodium Level 135 mmol/L (136-145)
[2021-11-12 20:41] LABS: Bedside Glucose 324 mg/dL (70-110)
[2021-11-12 21:28] VITALS: BP 128/81; PULSE 71
== END 2021-11-12 21:38 | disposition home or self-care (01) ==
PROVIDERS: Emergency Provider Emergency Medicine; Visit Provider Emergency Medicine
DX: E11.65 Type 2 diabetes mellitus with hyperglycemia (principal); Z79.4 Long term (current) use of insulin; E78.5 Hyperlipidemia, unspecified; I10 Essential (primary) hypertension; Z91.11 Patient's noncompliance with dietary regimen; Z91.14 Patient's other noncompliance with medication regimen; I25.2 Old myocardial infarction; Z79.899 Other long term (current) drug therapy; Z95.5 Presence of coronary angioplasty implant and graft
CPT/HCPCS: 80048; 82962; 96360; 96361; 99283; J7030; A4216

== ENCOUNTER 2022-01-04 13:08 | Observation (INO) | payer MEDICAID, SELFPAY ==
[2022-01-04 13:09] VITALS: BP 143/76; PULSE 82; RESP 16; TEMP 36.3; O2SAT 97; BMI 29.0
--- NOTE | 2022-01-04 13:48 | ED.VIS.GI ---
HPI HPI - GI History of Present Illness Chief Complaint: Diarrhea Informant: patient Narrative Narrative: Patient is a 61-year-old male with history of diabetes mellitus, hypertension coronary artery disease as well as alcohol abuse presenting with diarrhea. Patient did start having diarrhea yesterday. Has some mild diffuse associate abdominal pain. Denies any black or blood in his stool. Denies any nausea or vomiting. States has had too many bowel movements to count today and yesterday. Is not sure if he is urinated today. Denies any fever or chills. States he just feels weak all over. Has had diarrhea like this in the past but does not know what caused it. Denies any known history of C. difficile or colitis. No other complaints at this time. [facility] Medical History Diabetes Hyperlipidemia Hypertension Myocardial infarct Home Medications metformin 500 mg PO BID 05/02/19 [History Last Taken 10/31/19] Allergy/AdvReac Type Severity Reaction Status Date / Time diphenhydramine HCl Allergy Rash Verified 01/04/22 13:11 [From Benadryl] Penicillins Allergy Rash Verified 01/04/22 13:11 venom-honey bee Allergy Swelling Verified 01/04/22 13:11 [bee venom (honey bee)] Surgical History History of coronary artery stent placement Social History household members: none Smoking Status: Never smoker substance use type: does not use ROS ROS ED Constitutional Constitutional ED: Reports other Details: Fatigue and malaise ; Denies chills or fever(s) ENT ENT ED: Denies rhinorrhea or sore throat Cardiovascular Cardiovascular: Denies chest pain or palpitations Respiratory/Chest Respiratory/Chest: Denies dyspnea Gastrointestinal Gastrointestinal: Reports abdominal pain and diarrhea; Denies melena, nausea or vomiting Genitourinary Genitourinary ED: Denies dysuria or hematuria Musculoskeletal Musculoskeletal: Denies arthralgias or myalgias Integumentary Denies rash Neurologic Neurologic: Reports weakness; Denies headache(s) or paresthesias Psychiatric Psychiatric: Denies depression EXAM Physical Exam Const Vital Signs: 01/04/22 13:09 01/04/22 16:14 Temperature 97.3 F L Temperature Source Temporal Pulse Rate 82 88 Respiratory Rate 16 18 Blood Pressure 143/76 H 145/92 H Blood Pressure Mean 98 109 Pulse Ox 97 96 Oxygen Delivery Method Room Air Room Air Positive well nourished and well developed General Appearance ED: well developed and NAD HEENT Reports moist mucous membranes normocephalic and atraumatic Eyes PERRL and EOMs intact bilaterally Neck supple and no JVD Resp normal respiratory effort and clear to auscultation bilaterally Cardio regular rate, regular rhythm and no murmurs GI non-tender and non-distended Auscultation: normoactive bowel sounds Palpation: soft Back/Spine no CVA tenderness Extremity full ROM General Extremety ED: Negative for edema General Extremity: Negative for edema Neuro moves all extremities Sensorium / Orientation: alert, oriented to person, oriented to place and oriented to time Motor Exam: Negative for general weakness Psych mental status grossly normal Skin Lesions: no lesions Rashes: no rashes MDM MDM MDM Narrative Medical decision making narrative: Patient evaluated for abdominal discomfort, fatigue and diarrhea. He is hemodynamically stable in the ER. Patient is given IV fluids and lab work including CBC, CMP and lipase obtained. Lactate is also checked. Lab work is grossly normal. Patient is able to provide a stool sample in the ER and is sent for PCR for C. difficile as well as enteric pathogens. Lactoferrin is negative. Given negative lactoferrin, normal white blood cell count and no other risk factors for C. difficile, I do not think that is the cause. He is given dose of Bentyl in the ER. His abdomen is distended and I did check a CT of the abdomen pelvis. This shows dilation of the stomach as well as proximal duodenum with concern for duodenal diverticulum along the second portion of duodenum. This is discussed with GI on-call, Dr. Obregon, who recommends admission to the hospital for endoscopy for further evaluation of this. He recommends scheduled Bentyl as well as trialing 1 dose of cholestyramine in the ER to see how he tolerates it. Patient is hyperglycemic with a normal anion gap. He admits to being noncompliant with his insulin. He is given 8 units of lispro in the ER for this. Lab Data Attestation: I reviewed the patient's lab results. Labs: Laboratory Results - last 24 hr 03/05/2101/04/22 01/04/22 13:53 13:53 13:53 WBC 7.5 RBC 5.05 Hgb 14.9 Hct 40.7 MCV 80.6 MCH 29.5 MCHC 36.6 H RDW Std Deviation 39.3 RDW Coeff of Manjinder 13.8 Plt Count 223 MPV 9.6 Immature Gran % (Auto) 0.700 Neut % (Auto) 69.6 Lymph % (Auto) 21.3 [place] % (Auto) 5.6 Eos % (Auto) 2.3 Baso % (Auto) 0.5 Absolute Neuts (auto) 5.2 Absolute Lymphs (auto) 1.59 Nucleated RBC % 0 Sodium 136 Potassium 3.7 Chloride 102 Carbon Dioxide 28.0 Anion Gap 6 BUN 11 Creatinine 1.02 Estim Creat Clear Calc 95.85 Est GFR (MDRD) Af Amer 95 Est GFR (MDRD) Non-Af 79 BUN/Creatinine Ratio 10.8 Glucose 446 H Lactic Acid 1.1 Calcium 9.1 Total Bilirubin 0.70 AST 10 L ALT 17 Alkaline Phosphatase 87 Total Protein 7.1 Albumin 3.7 Globulin 3.4 Albumin/Globulin Ratio 1.1 Lipase 38 L Radiography Diagnostic Testing: Clinical Impression(s) from Imaging Studies Abdomen/Pelvis CT 01/04/22 15:15 IMPRESSION: Distention of the stomach and first and second portion of the duodenum down to the junction with the third portion. I suspect a duodenal diverticulum along the second portion of the duodenum. Correlation with endoscopy is recommended. Increased markings at the right lung base. Electronically Signed: Brent Gray MD at 15:36 EST , Discharge Plan Triage Chief Complaint: Diarrhea ED Provider: Antonette Dominguez Dx/Rx/DC Orders Clinical Impression: Diarrhea, Abdominal pain, Hyperglycemia Primary Care Provider: Care Physician,No Primary Disposition Disposition: Acute Care Hospital [facility]
[2022-01-04] MEDS: 0.9% Normal Saline 1,000 ML 1000 ML IV (13:54)
[2022-01-04 14:05] LABS: Absolute Lymphocyte Count 1.59 X10^3/uL (0.83-4.51); Absolute Neutrophil Count 5.2 X10^3/uL (2.0-7.7); Basophil# 0.04 X10^3/uL; Basophil% 0.5 % (0-1); Eosinophil# 0.17 X10^3/uL; Eosinophils% 2.3 % (0-5); Hematocrit 40.7 % (40-54); Hemoglobin 14.9 g/dL (13.0-16.5); Lymphocyte # 1.59 X10^3/ul (0.83-4.51); Lymphocyte % 21.3 % (19-41); Mean Corp Hgb Conc 36.6 g/dL (32-36); Mean Corpuscular Hgb 29.5 pg (27.0-32.0); Mean Corpuscular Volume 80.6 fL (80-94); Mean Platelet Vol. 9.6 fl (6.2-12.0); Monocyte# 0.42 X10^3/uL; Monocyte% 5.6 % (0-10); NRBC Flagged by Analyzer 0 % (0-5); Neutrophil % 69.6 % (47-70); Platelet Count 223 K/mm3 (150-450); RBC Distribution Width CV 13.8 % (11.6-14.6); RBC Distribution Width SD 39.3 fl (35.1-43.9); Red Blood Count 5.05 M/mm3 (4.6-6.2); White Blood Count 7.5 K/mm3 (4.4-11.0)
[2022-01-04 14:20] LABS: ALB/GLOB Ratio 1.1 RATIO (0.9-2.4); AST(SGOT) 10 U/L (15-37); Alanine Aminotransfer ALT/SGPT 17 U/L (16-61); Albumin, Serum 3.7 g/dL (3.2-5.0); Alkaline Phosphatase 87 U/L (45-117); Anion Gap 6 (5-15); BUN 11 mg/dL (7-18); BUN/Creat Ratio 10.8 RATIO (10-20); Calcium,Total 9.1 mg/dL (8.5-10.1); Chloride 102 mmol/L (98-107); Creatinine, Serum 1.02 mg/dL (0.70-1.30); EST Glomerular Filtration Rate 79 mL/min (>60); Est Glom Filt Rate - Afr Amer 95 mL/min (>60); Estimated Creatinine Clearance 95.85 ml/min; Globulin 3.4 g/dL (2.2-4.2); Glucose 446 mg/dL (74-106); Lipase 38 U/L (73-393); Potassium 3.7 mmol/L (3.5-5.1); Protein, Total 7.1 g/dL (6.4-8.2); Sodium Level 136 mmol/L (136-145)
[2022-01-04 14:36] LABS: Lactic Acid 1.1 mmol/L (0.4-1.9)
--- NOTE | 2022-01-04 14:41 | CM.ED ---
SW Note Referral Source: Case Find Referral Reason: No Primary Care Physician (PCP) SW reviewed chart and noted that patient has no PCP. SW provided patient with list of [facility] and [facility] Physician List for reference. Patient verbalized I need to get one (PCP) . No other issues or concerns voiced at this time. SW remains available for any additional needs. Plan: Provided patient with PCP information Ashley LOERA
--- NOTE | 2022-01-04 15:15 | CT_ITS ---
STUDY: CT ABDOMEN AND PELVIS WITH CONTRAST REASON FOR EXAM: Male, 61 years old. Abdominal pain RADIATION DOSAGE (If Supplied By Facility): CTDIvol = ( 15.75 ) mGy, DLP = ( 1348.81 ) mGycm TECHNIQUE: Transaxial images were obtained from the dome of the diaphragm to the symphysis pubis without oral contrast. IV 100mL Isovue-300 was administered. Sagittal and coronal images were reconstructed. Individualized dose optimization techniques were used for this CT. COMPARISON: Comparison is made with prior study dated 10/05/2019. FINDINGS: Increased linear markings in the right lung base with areas of confluence. This may represent either an early right lower lobe infiltrate versus atelectasis. The visualized portions of the heart are within normal limits. There is decreased attenuation of the liver consistent with steatosis. Normal gallbladder and extrahepatic biliary system. Normal spleen. Normal pancreas. Normal bilateral adrenal glands. Normal right kidney. Normal left kidney. There is distention of the stomach with fluid fluid and residual food particles. There is mildly dilated first and second portions of the duodenum down to the junction with the third portion. Findings suggestive of a duodenal diverticulum along the second portion of the duodenum. Normal colon. The appendix is visualized and appears normal. There is scattered atherosclerotic calcification of the abdominal aorta, without a demonstrated aneurysm. Normal inferior vena cava. Normal retroperitoneum. Normal urinary bladder. Normal abdominal wall. Disc space narrowing at the L4-L5 and L5-S1 levels. CT/Abdomen/Pelvis W IV Cont ONLY IMPRESSION: Distention of the stomach and first and second portion of the duodenum down to the junction with the third portion. I suspect a duodenal diverticulum along the second portion of the duodenum. Correlation with endoscopy is recommended. Increased markings at the right lung base. Electronically Signed: Brent Gray MD at 15:36 EST ,
[2022-01-04] MEDS: Dicyclomine 10 MG Capsule 20 MG PO (16:11)
[2022-01-04 16:14] VITALS: BP 145/92; PULSE 88; RESP 18; O2SAT 96
--- NOTE | 2022-01-04 16:19 | HP.PCM.HOS_ITS ---
HPI - General General Date of Admission: 01/04/22 HPI Narrative JERALD OLIVER, is a 61 M with a PMH as outlined who presents through the ED on 01/04/2022 with a complaint of diarrhea. Diarrhea started 1 day before admission and was profuse. He had assisted abdominal pain. Diarrhea did not improve a suspected instance he felt very weak and tired so he came to the ED. He denied any nausea vomiting it and not seen blood in his stool. He also denied any fever or chills. He has never had C. difficile before. HE says he ate a fish sandwich with chicken nuggets from [employer] yesterday. Review of systems otherwise negative. Vitals in the ED were blood pressure of 145/92 with pulse rate of 88, respiratory rate of 18 and he was saturating at 96% on room air. CBC was unremarkable and BMP was also unremarkable. He had CT of the abdomen and pelvis which showed distention of the stomach and first and second portion of the duodenum down to the junction with the third portion with suspicion for duodenal diverticulum along the second portion of the duodenum. The ED doctor discussed this with GI who recommended admission for scoping tomorrow. He has been admitted to be managed for intractable diarrhea. [facility], [facility] Medical History (Updated 01/04/22 @ 18:44 by Mila Avila) Chronic pain Depression Diabetes Hyperlipidemia Hypertension Myocardial infarct Non-smoker Sleep apnea Home Medications metformin 500 mg PO BID 05/02/19 [History Last Taken 01/04/22] Allergy/AdvReac Type Severity Reaction Status Date / Time diphenhydramine HCl Allergy Rash Verified 01/04/22 13:11 [From Benadryl] Penicillins Allergy Rash Verified 01/04/22 13:11 venom-honey bee Allergy Swelling Verified 01/04/22 13:11 [bee venom (honey bee)] Surgical History History of coronary artery stent placement Social History household members: none Smoking Status: Never smoker substance use type: does not use ROS Review of Systems ROS Unobtainable: Denies due to encephalopathy Constitutional Constitutional: Reports malaise and weakness; Denies anorexia, chills, fatigue or fever(s) Eyes Eyes: Denies change in vision ENT HEENT: Reports sore throat; Denies ear pain, nasal congestion or sinus pressure Cardiovascular Cardiovascular: Denies chest pain, dyspnea on exertion, edema, lightheadedness, orthopnea, palpitations, paroxysmal nocturnal dyspnea or rapid heart rate Respiratory/Chest Respiratory/Chest: Denies cough, dyspnea, productive cough, shortness of breath at rest or shortness of breath with exertion Gastrointestinal Gastrointestinal: Reports abdominal pain and diarrhea; Denies coffee ground emesis, constipation, dyspepsia, hematemesis, hematochezia, loose stools, melena, nausea or vomiting Genitourinary Genitourinary: Denies burning urination or dysuria Neurologic Neurologic: Denies confusion, dizziness, headache(s), numbness or seizure-like activity Psychiatric Psychiatric: Denies anxiety Endocrine Endocrinology: Denies change in body appearance Hematologic/Lymphatic Hematologic/Lymphatic: Denies anemia Vital Signs Vital Signs Vital Signs: 01/04/22 13:09 01/04/22 16:14 Temperature 97.3 F L Temperature Source Temporal Pulse Rate 82 88 Respiratory Rate 16 18 Blood Pressure 143/76 H 145/92 H Blood Pressure Mean 98 109 Pulse Ox 97 96 Oxygen Delivery Method Room Air Room Air Weight Weight: 245 lb Body Mass Index (BMI) 29.0 Physical Exam Const alert, oriented x3 and no apparent distress General Appearance: cooperative HEENT normocephalic, head/scalp atraumatic, hearing grossly normal bilaterally and moist oral mucous membranes Eyes PERRL, EOMs intact bilaterally and conjunctivae normal Neck no lymphadenopathy Resp normal respiratory effort, no retractions, no use of accessory muscles and clear to auscultation bilaterally Cardio regular rate, regular rhythm, S1 normal heart sound, S2 normal heart sound and no murmurs GI GI Narrative: abdomen mildly distended, soft, mild epigastric tenderness, no organomegaly. Normal bowel sounds Extremity normal to inspection, full ROM and no clubbing, cyanosis or edema Peripheral Pulses: Yes pulses 2+ throughout Skin Skin Narrative: has mildly erythematous papular rash over both inner wrists, and a papular erythematous, pruritic rash over right lower quadrant and right flank Neuro oriented x3, CN's II-XII intact bilaterally and moves all extremities Sensorium / Orientation: awake and alert Psych affect normal Results Lab / Micro Data Result Diagrams: 01/04/22 13:53 01/04/22 13:53 Labs: Laboratory Results - last 24 hr 01/04/22 13:53: WBC 7.5, RBC 5.05, Hgb 14.9, Hct 40.7, MCV 80.6, MCH 29.5, MCHC 36.6 H, RDW Std Deviation 39.3, RDW Coeff of Manjinder 13.8, Plt Count 223, MPV 9.6, Immature Gran % (Auto) 0.700, Neut % (Auto) 69.6, Lymph % (Auto) 21.3, [place] % (Auto) 5.6, Eos % (Auto) 2.3, Baso % (Auto) 0.5, Absolute Neuts (auto) 5.2, Absolute Lymphs (auto) 1.59, Nucleated RBC % 0 01/04/22 13:53: Sodium 136, Potassium 3.7, Chloride 102, Carbon Dioxide 28.0, Anion Gap 6, BUN 11, Creatinine 1.02, Estim Creat Clear Calc 95.85, Est GFR (MDRD) Af Amer 95, Est GFR (MDRD) Non-Af 79, BUN/Creatinine Ratio 10.8, Glucose 446 H, Calcium 9.1, Total Bilirubin 0.70, AST 10 L, ALT 17, Alkaline Phosphatase 87, Total Protein 7.1, Albumin 3.7, Globulin 3.4, Albumin/Globulin Ratio 1.1, Lipase 38 L 01/04/22 13:53: Lactic Acid 1.1 Micro: Microbiology 01/04/22 14:29 Stool Stool Lactoferrin - Final Radiology Impression Abdomen/Pelvis CT 01/04/22 15:15 IMPRESSION: Distention of the stomach and first and second portion of the duodenum down to the junction with the third portion. I suspect a duodenal diverticulum along the second portion of the duodenum. Correlation with endoscopy is recommended. Increased markings at the right lung base. Electronically Signed: Brent Gray MD at 15:36 EST , Assessment & Plan Assessment/Plan (1) Diarrhea: PLAN: #Acute diarrhea * admit to med surg * hydrate with iVF * CT abdomen showed distension of the stomach and first and second portion of the duodenum down to the junction with the third portion with suspicion for duodenal diverticulum * Keep on only clear liquids for now. * Consult GI as ED spoke to Dr. Obregon and his plan is to scope patient tomorrow. * stool samples sent to lab for culture and other workup * place on bentyl * * #Rash * patient has a rash on his abdomen and inner wrists that he thinks may be shingles. Rash on inner wrists appears to be a resolving papular rash that is pruritic. He has a rash on his right flank and right lower abdomen that is also pruritic and not burning in nature. He hasnt had the shingles vaccine. Rash has been present for ~ 2 weeks and hasnt worsened and is not burning; it is more papular and not vesicular in nature. * Rash doesnt follow a strictly dermatomal distribution. WIll hold off on valtrex for now.pruritus has improved * recommend follow up with dermatology on outpatient basis * #Type 2 diabetes mellitus: ISS. Accuchecks ACHS. Hold metformin #Hypertension: IV hydralazine prn. #Hypothyroidism: on synthroid #Hyperlipidemia: on statin #DVT prophylaxis: lovenox Code status: full code * Patient counseled extensively about different types of CODE STATUS including full code, DNR CCA and DNR CCA. Patient elects to be full code. * Total tdci-zy-ersk time 17 minutes. Charges/Coding Visit Charges OBSV E&M: 86283 Initial observation care L2 Procedures Hospitalists Procedures: 11446 Advncd Care Plan 30 Min
[2022-01-04] MEDS: Insulin Lispro 100 UNIT/ML INSULN.PEN 8 UNIT SC (16:32)
[2022-01-04] MEDS: Cholestyramine/Sucrose 4 GM/PACKET PO (16:34)
[2022-01-04 16:35] VITALS: BP 145/92; PULSE 87; RESP 16; TEMP 36.3; O2SAT 97
[2022-01-04 16:41] LABS: Bedside Glucose 374 mg/dL (74-106)
--- NOTE | 2022-01-04 17:14 | CM.ED ---
SCOUT/JOHNATHAN Note Information: Patient No family or visitors Present Patient reports he has no Next of Kin and he is the last of my family. 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 HE reports he does not want information about Advanced Directives PCP: Patient reports no PCP. SCOUT provided him with Healthcare Directory. Patient said that his brother in law is going to try to help him get into se Dr. Holland. Specialist: None Insurance: [facility] Prescription Coverage: [facility] Name of Pharmacy: [facility] Previous hospital admissions: [facility], [facility], [facility] and [facility] Living Arrangements: Resides in an apartment by himself. He said that his brother in law is across the corner. Steps: 1 step ADL's: Patient reports that he is independent in his ADL's. Patient reports that he and his brother in law eat together Employed: Disability. Patient reports that when he was younger [facility] and playing [facility] and seek and slipped and fell and hit my tail bone... now I can't walk like I used to. Patient reports he feels safe at home. Patient denied alcohol or drug use Patient reports he does not drive however, his brother in law provides transportation. Patient denied any DME's. Patient denied any previous SNF or Home Health Care Agencies. Plan: Patient reports he wants to go home at discharge. Ashley LOERA
--- NOTE | 2022-01-04 17:35 | CON.PCM.GI_ITS ---
HPI Consult Data Date of Consult: 01/04/22 HPI Narrative HPI Narrative: JERALD OLIVER, is a 61 M who presents to the ED with worsening abdominal pain. He has past medical history diabetes hypertension, CAD status post myocardial infarction, pancreatitis. Patient does not know how well his diabetes is controlled. He says that he has been having diarrhea for long time. I asked him what was it prior to starting Metformin he can not tell me. He has never had a colonoscopy. In the emergency room he had a biochemical evaluation. That showed normal hemoglobin, white blood cell, platelet count and a normal BUN/creatinine ratio. A CT scan of the abdomen pelvis was ordered and it showed distention of the stomach and first and second portion of the duodenum down to the junction with the third portion. Correlation with endoscopy was recommended. [facility] Medical History Diabetes Hyperlipidemia Hypertension Myocardial infarct Home Medications metformin 500 mg PO BID 05/02/19 [History Last Taken 01/04/22] Allergy/AdvReac Type Severity Reaction Status Date / Time diphenhydramine HCl Allergy Rash Verified 01/04/22 13:11 [From Benadryl] Penicillins Allergy Rash Verified 01/04/22 13:11 venom-honey bee Allergy Swelling Verified 01/04/22 13:11 [bee venom (honey bee)] Surgical History History of coronary artery stent placement Social History household members: none Smoking Status: Never smoker substance use type: does not use ROS Gastrointestinal Gastrointestinal: Reports diarrhea Physical Exam Const alert General Appearance: cooperative Orientation / Consciousness: oriented to person HEENT hearing grossly normal bilaterally Head and Scalp: normal to inspection Face and Sinus: face symmetric Nose: external nose normal Mouth: oral and palatal mucosa normal Eyes conjunctivae normal General Eye: normal appearance of both eyes Neck full ROM General: normal visual inspection Lymph Lymphatic: no lymphadenopathy noted Chest inspection of chest normal and palpation of chest normal Chest: symmetrical chest wall rise Resp normal respiratory effort Effort and Inspection: able to speak in complete sentences Cardio regular rate GI soft to palpation Inspection: abdominal distention Auscultation: other Palpation: other Other Details: Large ventral hernia Percussion: normal to percussion Rectal Exam: deferred Neuro Speech: speech normal Gait (Neuro): normal gait Lab / Micro Data Result Diagrams: 01/04/22 13:53 01/04/22 13:53 Labs: Laboratory Results - last 24 hr 01/04/22 13:53: WBC 7.5, RBC 5.05, Hgb 14.9, Hct 40.7, MCV 80.6, MCH 29.5, MCHC 36.6 H, RDW Std Deviation 39.3, RDW Coeff of Manjinder 13.8, Plt Count 223, MPV 9.6, Immature Gran % (Auto) 0.700, Neut % (Auto) 69.6, Lymph % (Auto) 21.3, [place] % (Auto) 5.6, Eos % (Auto) 2.3, Baso % (Auto) 0.5, Absolute Neuts (auto) 5.2, Absolute Lymphs (auto) 1.59, Nucleated RBC % 0 01/04/22 13:53: Sodium 136, Potassium 3.7, Chloride 102, Carbon Dioxide 28.0, Anion Gap 6, BUN 11, Creatinine 1.02, Estim Creat Clear Calc 95.85, Est GFR (MDRD) Af Amer 95, Est GFR (MDRD) Non-Af 79, BUN/Creatinine Ratio 10.8, Glucose 446 H, Calcium 9.1, Total Bilirubin 0.70, AST 10 L, ALT 17, Alkaline Phosphatase 87, Total Protein 7.1, Albumin 3.7, Globulin 3.4, Albumin/Globulin Ratio 1.1, Lipase 38 L 01/04/22 13:53: Lactic Acid 1.1 01/04/22 16:32: POC Glucose 374 H Micro: Microbiology 01/04/22 14:29 Stool Stool Lactoferrin - Final 01/04/22 14:29 Stool C. difficile DNA Amplification - Final Radiology Impression Abdomen/Pelvis CT 01/04/22 15:15 IMPRESSION: Distention of the stomach and first and second portion of the duodenum down to the junction with the third portion. I suspect a duodenal diverticulum along the second portion of the duodenum. Correlation with endoscopy is recommended. Increased markings at the right lung base. Electronically Signed: Brent Gray MD at 15:36 EST , Assessment & Plan Assessment/Plan (1) Diarrhea: PLAN: He is getting stool test for enteric pathogens, C. difficile, stool lactoferrin. He should also have ESR, CRP, LDH and lactate checked. The differential diagnosis for his diarrhea would be infectious, medication induced secondary to diabetes, dumping syndrome secondary to diabetes, villous adenoma with diarrhea. Patient refused to have colonoscopy at this time because do not want to take the prep. (2) Abdominal pain: PLAN: He has imaging consistent with food possible partial bowel obstr uction. The dual diagnosis would be small bowel lymphoma, adenocarcinoma, ulcers and disease. Also if he had any acute enteritis he would present similarly. He will undergo an upper endoscopy evaluate his upper GI tract. He was explained alternatives, risk, benefits including understanding bleeding, infection, sepsis, perforation, need for emergent . ASA of 3. Charges/Coding Visit Charges Inpatient E&M: 08729 Init Hosp L3
[2022-01-04 17:50] LABS: Bacteria 0 SEEN /hpf (None Seen); Mucous, Urine 0 SEEN /hpf (<or=2+); Red Blood Cells-Urine 0 SEEN /hpf (0-5); Squamous Epithelial Cells - UA 0 SEEN /hpf (0-5); White Blood Cells 0 SEEN /hpf (0-5)
[2022-01-04 18:13] LABS: Color, Urine Yellow (Yellow); Glucose, Dipstick 1000 mg/dl (Normal); Ketone-Dipstick 50 mg/dl (Negative); Leukocyte Esterase-Dipstick Negative /ul (Negative); Nitrite-Dipstick Negative (Negative); Occult Blood-Urine Negative /ul (Negative); Protein-Dipstick 15 mg/dl (Negative); Urine Bilirubin Dipstick Negative (Negative); Urine Clarity Clear (Clear); Urine Urobilinogen Normal (Normal)
[2022-01-04 18:37] VITALS: BMI 25.4
[2022-01-04] MEDS: 0.9% Saline Lock 10 ML Syringe IV (18:56)
[2022-01-04] MEDS: 0.9% Normal Saline 1,000 ML 125 ML IV (18:56)
[2022-01-04 19:39] VITALS: BP 116/68; PULSE 81; RESP 16; TEMP 36.6; O2SAT 97
[2022-01-04 20:30] VITALS: PULSE 78
[2022-01-04] MEDS: Insulin Lispro 100 UNIT/ML INSULN.PEN SC (22:23)
[2022-01-04 22:35] LABS: Bedside Glucose 217 mg/dL (74-106)
[2022-01-04 23:33] VITALS: PULSE 74
[2022-01-05] VITALS (17 sets, daily range): BP systolic 79–146; BP diastolic 56–100; PULSE 65–83; RESP 15–18; TEMP 36.5–36.7; O2SAT 95–97; BMI 25.4
--- NOTE | 2022-01-05 | ESO_PTH ---
PATIENT: JERALD OLIVER LOC: MS3 U#:[id number] AGE/SX: 61/M ROOM: [facility]04[facility]: Dr. Jayesh Perez MD : 1960 BED: 1 DIS: 01/07/2022 SPEC #: [id number] RECD: 01/05/22 16:42 STATUS: RICHARD REQ #: [id number] JOHN: 01/05/22 00:[address]: Donaldo Obregon DEPT: SURGICAL PATHOLOGY RECD BY: Uriah Orozco ENTERED: 01/06/22 10:10 SP TYPE: ESOPH BX OTHR DR: MD Dr. Jayesh Parker MD No Primary Care Phys Tissues: Esophagus, NOS Procedures: Special Stain Group I Surgery Specimen Level IV GMS Stain (control) Comments: @ Ordering doctor for SUIV edited from to @ by RUSS at 01/06/22 144 @ Submitting doctor edited from to @ by RUSS at 01/06/221441 HEADER OPERATION: EGD with biopsies ? bipolar electrohemostasis (MAC) PRE-OP DIAGNOSIS: Diarrhea, abdominal pain TISSUE SUBMITTED: Proximal esophagus biopsy MICROSCOPIC DIAGNOSIS Proximal esophagus, biopsy: Fragments of squamous epithelium with acute and chronic inflammation. BETTY:nereida 01/07/2022 COMMENT Special stain for fungi is negative for organisms; matched control is appropriate. MICROSCOPIC DESCRIPTION Slides are reviewed. GROSS DESCRIPTION Received in fixative is one container labeled with the patient's name and designated proximal esophagus biopsy. The specimen consists of multiple irregular fragments of light gabriel soft tissue that in aggregate measure 1 x 0.3 x 0.1 cm. The specimen is totally submitted in one cassette. / BETTY:nereida 01/06/2022 TC:2 CPT: 81918, 55156
[2022-01-05] MEDS: 0.9% Normal Saline 1,000 ML 125 ML IV (02:19)
[2022-01-05] MEDS: Insulin Lispro 100 UNIT/ML INSULN.PEN SC ×4 (06:21→21:52)
[2022-01-05 06:26] LABS: Bedside Glucose 207 mg/dL (74-106)
[2022-01-05 07:12] LABS: Absolute Lymphocyte Count 1.66 X10^3/uL (0.83-4.51); Absolute Neutrophil Count 4.4 X10^3/uL (2.0-7.7); Basophil# 0.03 X10^3/uL; Basophil% 0.4 % (0-1); Eosinophil# 0.22 X10^3/uL; Eosinophils% 3.2 % (0-5); Hematocrit 39.9 % (40-54); Hemoglobin 14.1 g/dL (13.0-16.5); Lymphocyte # 1.66 X10^3/ul (0.83-4.51); Lymphocyte % 24.5 % (19-41); Mean Corp Hgb Conc 35.3 g/dL (32-36); Mean Corpuscular Volume 82.1 fL (80-94); Mean Platelet Vol. 9.5 fl (6.2-12.0); Monocyte# 0.45 X10^3/uL; Monocyte% 6.6 % (0-10); NRBC Flagged by Analyzer 0 % (0-5); Neutrophil # 4.38 X10^3/uL (2.7-7.7); Neutrophil % 64.9 % (47-70); Platelet Count 186 K/mm3 (150-450); RBC Distribution Width SD 40.9 fl (35.1-43.9); Red Blood Count 4.86 M/mm3 (4.6-6.2); White Blood Count 6.8 K/mm3 (4.4-11.0)
[2022-01-05 07:35] LABS: Anion Gap 5 (5-15); BUN 7 mg/dL (7-18); Chloride 110 mmol/L (98-107); EST Glomerular Filtration Rate 122 mL/min (>60); Est Glom Filt Rate - Afr Amer 148 mL/min (>60); Estimated Creatinine Clearance 139.66 ml/min; Glucose 211 mg/dL (74-106); Potassium 3.5 mmol/L (3.5-5.1); Sodium Level 140 mmol/L (136-145)
--- NOTE | 2022-01-05 08:13 | PN.HOSP_ITS ---
Subjective Subjective Patient admitted with nausea vomiting and diarrhea and abdominal cramps. He still complain of abdominal cramps mainly in umbilical region. Does not have history of C. difficile. CT abdomen reviewed. Objective Data Objective Data Vital Signs: Vital Signs Temp Pulse Resp BP Pulse Ox 98 F 67 16 123/83 H 96 01/05/22 07:34 01/05/22 07:34 01/05/22 07:34 01/05/22 07:34 01/05/22 07:34 Oxygen Delivery Method Room Air Weight: 214 lb 6.548 oz Body Mass Index (BMI) 25.4 Intake & Output: Intake and Output for Last 24 Hours 01/03/22 01/04/22 01/05/22 23:59 23:59 23:59 Intake Total 1000 / 1000 1322.92 / 1322.92 Balance 1000 / 1000 1322.92 / 1322.92 Lab / Micro Data Result Diagrams: 01/05/22 06:52 01/05/22 06:52 Labs: Laboratory Results - last 24 hr 01/04/22 13:53: WBC 7.5, RBC 5.05, Hgb 14.9, Hct 40.7, MCV 80.6, MCH 29.5, MCHC 36.6 H, RDW Std Deviation 39.3, RDW Coeff of Manjinder 13.8, Plt Count 223, MPV 9.6, Immature Gran % (Auto) 0.700, Neut % (Auto) 69.6, Lymph % (Auto) 21.3, [place] % (Auto) 5.6, Eos % (Auto) 2.3, Baso % (Auto) 0.5, Absolute Neuts (auto) 5.2, Absolute Lymphs (auto) 1.59, Nucleated RBC % 0 01/04/22 13:53: Sodium 136, Potassium 3.7, Chloride 102, Carbon Dioxide 28.0, Anion Gap 6, BUN 11, Creatinine 1.02, Estim Creat Clear Calc 95.85, Est GFR (MDRD) Af Amer 95, Est GFR (MDRD) Non-Af 79, BUN/Creatinine Ratio 10.8, Glucose 446 H, Calcium 9.1, Total Bilirubin 0.70, AST 10 L, ALT 17, Alkaline Phosphatase 87, Total Protein 7.1, Albumin 3.7, Globulin 3.4, Albumin/Globulin Ratio 1.1, Lipase 38 L 03/07/22 13:53: Lactic Acid 1.1 01/04/22 16:32: POC Glucose 374 H 01/04/22 17:43: Urine Color Yellow, Urine Clarity Clear, Urine pH 5.0, Ur Specific Tangent 1.010, Urine Protein 15 H, Urine Glucose (UA) 1000 H, Urine Ketones 50 H, Urine Occult Blood Negative, Urine Nitrite Negative, Urine Biliru bin Negative, Urine Urobilinogen Normal, Ur Leukocyte Esterase Negative, Urine RBC 0 SEEN, Urine WBC 0 SEEN, Ur Squamous Epith Cells 0 SEEN, Urine Bacteria 0 SEEN, Urine Mucus 0 SEEN 01/04/22 22:22: POC Glucose 217 H 01/05/22 06:17: POC Glucose 207 H 01/05/22 06:52: WBC 6.8, RBC 4.86, Hgb 14.1, Hct 39.9 L, MCV 82.1, MCH 29.0, MCHC 35.3, RDW Std Deviation 40.9, RDW Coeff of Manjinder 14.0, Plt Count 186, MPV 9.5, Immature Gran % (Auto) 0.400, Neut % (Auto) 64.9, Lymph % (Auto) 24.5, [place] % (Auto) 6.6, Eos % (Auto) 3.2, Baso % (Auto) 0.4, Absolute Neuts (auto) 4.4, Absolute Lymphs (auto) 1.66, Nucleated RBC % 0 01/05/22 06:52: Sodium 140, Potassium 3.5, Chloride 110 H, Carbon Dioxide 25.0, Anion Gap 5, BUN 7, Creatinine 0.70, Estim Creat Clear Calc 139.66, Est GFR (MDRD) Af Amer 148, Est GFR (MDRD) Non-Af 122, BUN/Creatinine Ratio 10.0, Glucose 211 H, Calcium 8.0 L Micro: Microbiology 01/04/22 14:29 Stool Stool Lactoferrin - Final 01/04/22 14:29 Stool Enteric Bacteriology - Final 01/04/22 14:29 Stool C. difficile DNA Amplification - Final Radiography Diagnostic Testing: Radiology Impression Abdomen/Pelvis CT 01/04/22 15:15 IMPRESSION: Distention of the stomach and first and second portion of the duodenum down to the junction with the third portion. I suspect a duodenal diverticulum along the second portion of the duodenum. Correlation with endoscopy is recommended. Increased markings at the right lung base. Electronically Signed: Brent Gray MD at 15:36 EST , Physical Exam Narrative General: Alert, Oriented x3, Cooperative HEENT: Atraumatic, PERRLA, EOMI, Normocephalic Oral: No Gingival or Mucosal Lesions/ Ulcerations Neck: Supple, No JVD, Negative Carotid Bruits Lungs: Air entry diminished in bilateral lung bases. No crepitation/rhonchi Cardiovascular: Regular rate, Regular Rhythm, Normal S1, Normal S2, No murmurs Abdomen: Bowel Sounds Present, Soft, Non-Distended. Mild tenderness over umbilical region. : No renal angle tenderness. No suprapubic tenderness. Extremities: No edema, Capillary Refill Less than 3 Seconds Skin: No rashes, No breakdown Musculoskeletal: No Tenderness to Palpation of Joints or Extremities Neurological: Cranial nerves II-XII grossly intact, DTR 2+/4 and Symmetrical, Neuro grossly intact Psych/Mental Status: Flat affect. Assessment & Plan Assessment/Plan (1) Diarrhea: PLAN: #Acute diarrhea with nausea and vomiting suggestive of gastroenterit is: Stool for C. difficile and enteric bacteriology panel are negative. With first and second portion of duodenum with suspicion of duodenal diverticulum. GI consult reviewed. On Bentyl. Plan for EGD today. #Rash patient has rash on his abdomen and inner wrist possible shingles. Patient never vaccinated single vaccine. Rash present more than 2 weeks and not worsened or burning sensation. I do not see any vesicular rashes but more papular. Follow-up with dermatology as an outpatient. Hold off on Valtrex. * #Type 2 diabetes mellitus: Accu-Chek insulin coverage per sliding scale hold m etformin #Hypertension: IV hydralazine prn. Blood pressure is controlled. #Hypothyroidism: on synthroid #Hyperlipidemia: on statin #DVT prophylaxis: lovenox Code status: full code Charges/Coding Visit Charges OBSV E&M: 02616 Subsequent observation care L2
[2022-01-05 09:22] LABS: Erythrocyte Sedimentation Rate 4 mm/hr (0-20)
[2022-01-05 09:26] LABS: CRP < 2.90 mg/L (0.0-3.0); LDH 192 U/L (87-241)
--- NOTE | 2022-01-05 10:30 | NS ---
Pt told this RDN he cheated and ate a package of radha crackers despite knowing he is to be NPO for scope today. instructor adjunct surgical technician Reema notified. Omero Jon MS, RDN, LD
--- NOTE | 2022-01-05 10:37 | NURSING ---
WAS INFORMED PT ATE [employer] ABOUT 20 MINUTES AGO. STAFF HERE TO OPERATIONS LEAD PT FOR EGD. THIS NURSE VERIFIED W/PT THAT HE DID EAT M[employer]ERS 20 MINUTES AGO. HE SAID HE HAD GOTTEN THEM LAST NIGHT WHEN THEY TOLD HIM HE WAS GOING TO BE NPO AFTER MIDNIGHT. HE WAS THEN IRRITATED THAT I THREW HIS WATER GLASS AWAY. I TOLD HIM, THAT IF HE HAD NOT EATEN ANYTHING, HE HAD BEEN INSTRUCTED, HE WOULD BE LEAVING THE UNIT FOR HIS TEST NOW AND BE BACK IN [place] A HALF HOUR AND HE WOULD HAVE BEEN ABLE TO HAVE SOMETHING AT THAT TIME, NOW, HE WILL BE WAITING UNTIL ATLEAST 1530 TO HAVE THE TEST DONE. I EXPLAINED THE RISKS OF HAVING SOMETHING TO EAT OR DRINK PRIOR TO SEDATION AND THE TESTING.
[2022-01-05 11:10] LABS: Bedside Glucose 212 mg/dL (74-106)
--- NOTE | 2022-01-05 14:21 | NURSING ---
student charting reviewed-Yolanda shelton, [employer] instructor
--- NOTE | 2022-01-05 14:37 | NURSING ---
Pt NPO since 7am care. No bowel movement during shift.
--- NOTE | 2022-01-05 15:16 | NURSING ---
1500-OFF UNIT VIA BED FOR PROCEDURE
[2022-01-05 15:17] LABS: Bedside Glucose 230 mg/dL (74-106)
--- NOTE | 2022-01-05 16:23 | OP.EGD_ITS ---
Patient Name: Jared Yoder Procedure Date: 01/05/2022 9:59 AM Date of : 1960 Age: 61 Procedure: Upper GI endoscopy Indications: Epigastric abdominal pain, Abnormal CT of the GI tract Providers: Donaldo Obregon DO Medicines: See the Anesthesia note for documentation of the administered medications Patient Profile: This is a 61 year old male. Refer to note in patient chart for documentation of history and physical. Patient has symptoms. Complications: No immediate complications. Procedure: Pre-Anesthesia Assessment: - Prior to the procedure, a History and Physical was performed, and patient medications and allergies were reviewed. The patient is competent. The risks and benefits of the procedure and the sedation options and risks were discussed with the patient. All questions were answered and informed consent was obtained. Patient identification and proposed procedure were verified by the physician in the pre-procedure area. Mental Status Examination: alert and oriented. Airway Examination: normal oropharyngeal airway and neck mobility. Respiratory Examination: clear to auscultation. CV Examination: normal. Prophylactic Antibiotics: The patient does not require prophylactic antibiotics. Prior Anticoagulants: The patient has taken no previous anticoagulant or antiplatelet agents. ASA Grade Assessment: II - A patient with mild systemic disease. After reviewing the risks and benefits, the patient was deemed in satisfactory condition to undergo the procedure. The anesthesia plan was to use moderate sedation / analgesia (conscious sedation). Immediately prior to administration of medications, the patient was re-assessed for adequacy to receive sedatives. The heart rate, respiratory rate, oxygen saturations, blood pressure, adequacy of pulmonary ventilation, and response to care were monitored throughout the procedure. The physical status of the patient was re-assessed after the procedure. After obtaining informed consent, the endoscope was passed under direct vision. Throughout the procedure, the patient's blood pressure, pulse, and oxygen saturations were monitored continuously. The Endoscope was introduced through the mouth, and advanced to the second part of duodenum. The upper GI endoscopy was accomplished without difficulty. The patient tolerated the procedure well. Moderate Sedation: Moderate (conscious) sedation was administered by the endoscopy nurse and supervised by the endoscopist. The patient's oxygen saturation, heart rate, blood pressure and response to care were monitored. Total physician intraservice time was 15 minutes. Scope In: 4:09:30 PM Scope Out: 4:15:52 PM Total Procedure Duration Time 0 hours 6 minutes 22 seconds Findings: Patchy, white plaques were found in the upper third of the esophagus. Biopsies were taken with a cold forceps for histology. Verification of patient identification for the specimen was done. Estimated blood loss was minimal. LA grade B erosive esophagitis was seen. Three 5 mm no bleeding angiodysplastic lesions were found in the cardia. Coagulation for hemostasis using argon beam at 0.3 liters/minute and 20 perez was successful. Estimated blood loss was minimal. A large amount of food (residue) was found in the gastric antrum. Food (residue) was found in the duodenal bulb, in the first portion of the duodenum and in the second portion of the duodenum. Impression: - Esophageal plaques were found, consistent with candidiasis. Biopsied. 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 Treated with argon beam coagulation. - A large amount of food (residue) in the stomach. - Retained food in the duodenum. Recommendation: - Return patient to [facility] for ongoing care. -Gastric emptying study - Resume previous diet. - Continue present medications. - Nystatin suspension 100,000 units PO QID for 1 week. Procedure Code(s): --- Professional --- 85444, 59, Esophagogastroduodenoscopy, flexible, transoral; with control of bleeding, any method 75267, Esophagogastroduodenoscopy, flexible, transoral; with biopsy, single or multiple 82541, 59, Moderate sedation services provided by the same physician or other qualified health caregiver assisted living performing the diagnostic or therapeutic service that the sedation supports, requiring the presence of an independent trained observer to assist in the monitoring of the patient's level of consciousness and physiological status; initial 15 minutes of intraservice time, patient age 5 years or older CPT copyright 2017 [employer]. All rights reserved. The codes documented in this report are preliminary and upon actuarial analyst review may be revised to meet current compliance requirements. Donaldo Obregon DO 01/05/2022 4:23:20 PM This report has been signed electronically. Number of Addenda: 1 Note Initiated On: 01/05/2022 9:59 AM Addendum Number: 1 Addendum Date: 07/28/2022 6:36:08 AM MAC was used as sedation for this procedure. Donaldo Obregon DO 07/28/2022 6:36:12 AM This report has been signed electronically.
--- NOTE | 2022-01-05 16:24 | OP.CCLET_ITS ---
07/28/2022 No Primary Care Physician Re : Upper GI endoscopy procedure for Jared Paresh Dear Care Physician This procedure was performed on Wednesday, January 05, 2022. My impressions and recommendations are as follows: Impressions : - Esophageal plaques were found, consistent with candidiasis. Biopsied. 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 Treated with argon beam coagulation. - A large amount of food (residue) in the stomach. - Retained food in the duodenum. Recommendations : - Return patient to [facility] for ongoing care. -Gastric emptying study - Resume previous diet. - Continue present medications. - Nystatin suspension 100,000 units PO QID for 1 week. My findings are described in the full procedure note, which is enclosed. If I can be of further assistance, please feel free to contact me at . Sincerely, Donaldo Obregon, 01/05/2022 4:23:20 PM This report has been signed electronically.
[2022-01-05] MEDS: Dicyclomine 10 MG Capsule PO (17:30)
[2022-01-05 18:46] LABS: Bedside Glucose 220 mg/dL (74-106)
[2022-01-05] MEDS: Fluconazole 100 MG Tablet 200 MG PO (20:33)
[2022-01-05] MEDS: NYSTATIN 500,000 UNIT/5 ML UDC 100000 UNIT PO (21:52)
[2022-01-05 22:02] LABS: Bedside Glucose 265 mg/dL (74-106)
[2022-01-06 02:58] VITALS: BP 144/77; PULSE 73; RESP 16; TEMP 36.4; O2SAT 97
[2022-01-06 03:00] VITALS: PULSE 72
[2022-01-06 05:59] LABS: Absolute Lymphocyte Count 1.94 X10^3/uL (0.83-4.51); Absolute Neutrophil Count 4.2 X10^3/uL (2.0-7.7); Basophil# 0.04 X10^3/uL; Basophil% 0.6 % (0-1); Eosinophil# 0.18 X10^3/uL; Eosinophils% 2.6 % (0-5); Hematocrit 38.7 % (40-54); Hemoglobin 13.7 g/dL (13.0-16.5); Lymphocyte # 1.94 X10^3/ul (0.83-4.51); Lymphocyte % 28.3 % (19-41); Mean Corp Hgb Conc 35.4 g/dL (32-36); Mean Corpuscular Volume 81.8 fL (80-94); Mean Platelet Vol. 9.5 fl (6.2-12.0); Monocyte# 0.45 X10^3/uL; Monocyte% 6.6 % (0-10); NRBC Flagged by Analyzer 0 % (0-5); Neutrophil # 4.21 X10^3/uL (2.7-7.7); Neutrophil % 61.5 % (47-70); Platelet Count 189 K/mm3 (150-450); RBC Distribution Width CV 13.8 % (11.6-14.6); RBC Distribution Width SD 40.3 fl (35.1-43.9); Red Blood Count 4.73 M/mm3 (4.6-6.2); White Blood Count 6.9 K/mm3 (4.4-11.0)
--- NOTE | 2022-01-06 06:00 | NM_ITS ---
CLINICAL: 61-year-old male with reported history of abdominal pain and suspected clinical gastroparesis. SEMI-SOLID PHASE 99m Tc SULFUR COLLOID GASTRIC EMPTYING STUDY COMPARISON: CT of the abdomen-pelvis report 01/04/2022 FINDINGS: The patient was administered 1.2 mCi of 99m Tc sulfur colloid mixed with oatmeal and consumed per os. Image acquisitions in the anterior-posterior projections for a total of 60 minutes. There is prompt visualization of the stomach. There is no gastroesophageal reflux identified. First order kinetics are maintained throughout the duration of the acquisitions. The T ? emptying was calculated to be 61.2 minutes, (Normal: 12-56 minutes). NM/Gastric Emptying Study IMPRESSION: 1. ABNORMAL 99m Tc sulfur colloid semi-solid phase (oatmeal) gastric emptying imaging examination. A. There is mild delayed semi-solid phase gastric emptying compared to normal controls with maintained first order kinetics throughout all components of the examination. (Norris et al, J Nucl Med Tech 38: 186, 2010). Electronically Signed: Dakotah Stallworth DO at 10:57 EST ,
[2022-01-06 06:27] LABS: AST(SGOT) 7 U/L (15-37); Alanine Aminotransfer ALT/SGPT 13 U/L (16-61); Albumin, Serum 3.1 g/dL (3.2-5.0); Alkaline Phosphatase 68 U/L (45-117); Anion Gap 4 (5-15); BUN 10 mg/dL (7-18); BUN/Creat Ratio 13.7 RATIO (10-20); Calcium,Total 8.2 mg/dL (8.5-10.1); Chloride 106 mmol/L (98-107); Creatinine, Serum 0.73 mg/dL (0.70-1.30); EST Glomerular Filtration Rate 115 mL/min (>60); Est Glom Filt Rate - Afr Amer 140 mL/min (>60); Estimated Creatinine Clearance 133.92 ml/min; Globulin 3.1 g/dL (2.2-4.2); Glucose 205 mg/dL (74-106); Potassium 3.4 mmol/L (3.5-5.1); Protein, Total 6.2 g/dL (6.4-8.2); Sodium Level 139 mmol/L (136-145)
[2022-01-06] MEDS: Insulin Lispro 100 UNIT/ML INSULN.PEN SC ×4 (06:44→22:36)
[2022-01-06 06:51] LABS: Bedside Glucose 219 mg/dL (74-106)
[2022-01-06 07:18] VITALS: O2SAT 95
[2022-01-06 11:07] VITALS: BP 139/96; PULSE 73; RESP 16; TEMP 37; O2SAT 96
[2022-01-06] MEDS: NYSTATIN 500,000 UNIT/5 ML UDC 100000 UNIT PO ×4 (11:14→23:03)
[2022-01-06] MEDS: Dicyclomine 10 MG Capsule PO ×2 (11:15→15:27)
[2022-01-06 11:37] LABS: Bedside Glucose 307 mg/dL (74-106)
--- NOTE | 2022-01-06 12:29 | PN.HOSP_ITS ---
Subjective Subjective Patient had EGD yesterday. Found to be esophageal plaques consistent with esophageal candidiasis. He feels better. Denies abdominal pain. Objective Data Objective Data Vital Signs: Vital Signs Temp Pulse Resp BP Pulse Ox 98.6 F 73 16 139/96 H 96 01/06/22 11:07 01/06/22 11:07 01/06/22 11:07 01/06/22 11:07 01/06/22 11:07 Oxygen Delivery Method Room Air Weight: 214 lb 6.534 oz Body Mass Index (BMI) 25.4 Intake & Output: Intake and Output for Last 24 Hours 01/04/22 01/05/22 01/06/22 23:59 23:59 23:59 Intake Total 1000 / 1000 2422.92 / 2422.92 600 / 600 Balance 1000 / 1000 2422.92 / 2422.92 600 / 600 Lab / Micro Data Result Diagrams: 01/06/22 05:11 01/06/22 05:11 Labs: Laboratory Results - last 24 hr 01/05/22 15:10: POC Glucose 230 H 01/05/22 17:22: POC Glucose 220 H 01/05/22 21:51: POC Glucose 265 H 01/06/22 05:11: WBC 6.9, RBC 4.73, Hgb 13.7, Hct 38.7 L, MCV 81.8, MCH 29.0, MCHC 35.4, RDW Std Deviation 40.3, RDW Coeff of Manjinder 13.8, Plt Count 189, MPV 9. 5, Immature Gran % (Auto) 0.400, Neut % (Auto) 61.5, Lymph % (Auto) 28.3, [place] % (Auto) 6.6, Eos % (Auto) 2.6, Baso % (Auto) 0.6, Absolute Neuts (auto) 4.2, Absolute Lymphs (auto) 1.94, Nucleated RBC % 0 01/06/22 05:11: Sodium 139, Potassium 3.4 L, Chloride 106, Carbon Dioxide 29.0, Anion Gap 4 L, BUN 10, Creatinine 0.73, Estim Creat Clear Calc 133.92, Est GFR (MDRD) Af Amer 140, Est GFR (MDRD) Non-Af 115, BUN/Creatinine Ratio 13.7, Glucose 205 H, Calcium 8.2 L, Total Bilirubin 0.50, AST 7 L, ALT 13 L, Alkaline Phosphatase 68, Total Protein 6.2 L, Albumin 3.1 L, Globulin 3.1, Albumin/Gl obulin Ratio 1.0 01/06/22 06:41: POC Glucose 219 H 01/06/22 11:29: POC Glucose 307 H Micro: Microbiology 01/04/22 14:29 Stool Stool Lactoferrin - Final 01/04/22 14:29 Stool Enteric Bacteriology - Final 01/04/22 14:29 Stool C. difficile DNA Amplification - Final Radiography Diagnostic Testing: Radiology Impression Gastric Emptying Nuclear Medicine 01/06/22 06:00 IMPRESSION: 1. ABNORMAL 99m Tc sulfur colloid semi-solid phase (oatmeal) gastric emptying imaging examination. A. There is mild delayed semi-solid phase gastric emptying compared to normal controls with maintained first order kinetics throughout all components of the examination. (Norris joseph al, J Nucl Med Tech 38: 186, 2010). Electronically Signed: Dakotah Stallworth, at 10:57 EST , Physical Exam Narrative General: Alert, Oriented x3, Cooperative HEENT: Atraumatic, PERRLA, EOMI, Normocephalic Oral: Deep pharyngeal white plaques. Neck: Supple, No JVD, Negative Carotid Bruits Lungs: Air entry diminished in bilateral lung bases. No crepitation/rhonchi Cardiovascular: Regular rate, Regular Rhythm, Normal S1, Normal S2, No murmurs Abdomen: Bowel Sounds Present, Soft, Non-Distended. Nontender. No palpable mass : No renal angle tenderness. No suprapubic tenderness. Extremities: No edema, Capillary Refill Less than 3 Seconds Skin: No rashes, No breakdown Musculoskeletal: No Tenderness to Palpation of Joints or Extremities Neurological: Cranial nerves II-XII grossly intact, DTR 2+/4 and Symmetrical, Neuro grossly intact Psych/Mental Status: Flat affect. Assessment & Plan Assessment/Plan (1) Diarrhea: PLAN: #Acute diarrhea with nausea and vomiting suggestive of gastroenteritis: Stool for C. difficile and enteric bacteriology panel are negative. With first and second portion of duodenum with suspicion of duodenal diverticulum. GI consult reviewed. On Bentyl. 01/06: Patient had EGD done on 01/05. Esophageal plaques were found biopsied consistent with esophageal candidiasis. 3 nonbleeding angiodysplastic lesions in the stomach treated with argon coagulation. Large amount of food residue in the stomach and retained food in the duodenum. I discussed with Dr. Obregon and advised gastric emptying study and patient is going today. Since patient is n.p.o. for procedure on Diflucan IV. 2 rash patient has rash on his abdomen and inner wrist possible shingles. Patient never vaccinated single vaccine. Rash present more than 2 weeks and not worsened or burning sensation. I do not see any vesicular rashes but more papular. 01/06: Patient has multiple scab due to itching. Follow-up with dermatology as an outpatient. Hold off on Valtrex. #Type 2 diabetes mellitus with uncontrolled hyperglycemia: Accu-Chek insulin coverage per sliding scale hold metformin 01/06: Blood sugar fluctuates between 219-307. Insulin adjusted #Hypertension: IV hydralazine prn. Blood pressure is controlled. #Hypothyroidism: on synthroid #Hyperlipidemia: on statin #DVT prophylaxis: lovenox Code status: full code Charges/Coding Visit Charges Inpatient E&M: 37572 Subs Hosp L2
[2022-01-06] MEDS: Insulin Lispro 100 UNIT/ML INSULN.PEN 10 UNIT SC (16:49)
[2022-01-06 17:01] LABS: Bedside Glucose 205 mg/dL (74-106)
--- NOTE | 2022-01-06 18:10 | PN_ITS ---
Subjective Subjective The patient underwent upper endoscopy yesterday and was determined to have esophageal candidiasis along with a lot of food in his stomach. He underwent a gastric emptying study today. His abdominal pain is a lot better today. Objective Data Objective Data Vital Signs: Vital Signs Temp Pulse Resp BP Pulse Ox 98.6 F 73 16 139/96 H 96 01/06/22 11:07 01/06/22 11:07 01/06/22 11:07 01/06/22 11:07 01/06/22 11:07 Oxygen Delivery Method Room Air Weight: 214 lb 6.534 oz Body Mass Index (BMI) 25.4 Intake & Output: Intake and Output for Last 24 Hours 01/04/22 01/05/22 01/06/22 23:59 23:59 23:59 Intake Total 1000 / 1000 2422.92 / 2422.92 700 / 700 Balance 1000 / 1000 2422.92 / 2422.92 700 / 700 Lab / Micro Data Result Diagrams: 01/06/22 05:11 01/06/22 05:11 Labs: Laboratory Results - last 24 hr 01/05/22 17:22: POC Glucose 220 H 01/05/22 21:51: POC Glucose 265 H 01/06/22 05:11: WBC 6.9, RBC 4.73, Hgb 13.7, Hct 38.7 L, MCV 81.8, MCH 29.0, MCHC 35.4, RDW Std Deviation 40.3, RDW Coeff of Manjinder 13.8, Plt Count 189, MPV 9.5, Immature Gran % (Auto) 0.400, Neut % (Auto) 61.5, Lymph % (Auto) 28.3, [place] % (Auto) 6.6, Eos % (Auto) 2.6, Baso % (Auto) 0.6, Absolute Neuts (auto) 4.2, Absolute Lymphs (auto) 1.94, Nucleated RBC % 0 01/06/22 05:11: Sodium 139, Potassium 3.4 L, Chloride 106, Carbon Dioxide 29.0, Anion Gap 4 L, BUN 10, Creatinine 0.73, Estim Creat Clear Calc 133.92, Est GFR (MDRD) Af Amer 140, Est GFR (MDRD) Non-Af 115, BUN/Creatinine Ratio 13.7, Glucose 205 H, Calcium 8.2 L, Total Bilirubin 0.50, AST 7 L, ALT 13 L, Alkaline Phosphatase 68, Total Protein 6.2 L, Albumin 3.1 L, Globulin 3.1, [place]/Globulin Ratio 1.0 01/06/22 06:41: POC Glucose 219 H 01/06/22 11:29: POC Glucose 307 H 01/06/22 16:48: POC Glucose 205 H Micro: Microbiology 01/04/22 14:29 Stool Stool Lactoferrin - Final 01/04/22 14:29 Stool Enteric Bacteriology - Final 01/04/22 14:29 Stool C. difficile DNA Amplification - Final Radiography Diagnostic Testing: Radiology Impression Gastric Emptying Nuclear Medicine 01/06/22 06:00 IMPRESSION: 1. ABNORMAL 99m Tc sulfur colloid semi-solid phase (oatmeal) gastric emptying imaging examination. A. There is mild delayed semi-solid phase gastric emptying compared to normal controls with maintained first order kinetics throughout all components of the examination. (Norris et al, J Nucl Med Tech 38: 186, 2010). Electronically Signed: Dakotah Stallworth DO at 10:57 EST , Physical Exam Const alert General Appearance: cooperative Orientation / Consciousness: oriented to person HEENT hearing grossly normal bilaterally Head and Scalp: normal to inspection Face and Sinus: face symmetric Nose: external nose normal Mouth: oral and palatal mucosa normal Eyes conjunctivae normal General Eye: normal appearance of both eyes Neck full ROM General: normal visual inspection Lymph Lymphatic: no lymphadenopathy noted Chest inspection of chest normal and palpation of chest normal Chest: symmetrical chest wall rise Resp normal respiratory effort Effort and Inspection: able to speak in complete sentences Cardio regular rate GI non-distended Percussion: normal to percussion Rectal Exam: deferred Neuro Speech: speech normal Gait (Neuro): normal gait Assessment & Plan Assessment/Plan (1) Gastroparesis: PLAN: Patient is a poorly controlled diabetic. He can have a trial of Reglan therapy 5 mg to take 3 times a day. (2) Abdominal pain: PLAN: I think his abdominal pain is secondary to gastroparesis. He should be on PPI therapy twice a day and consider azithromycin 500 mg a day x7 days if the Reglan is not helping his stomach. We will need to repeat his gastric emptying study in approximately 60 days after completing the 2-month course of Reglan therapy (3) Esophageal candidiasis: PLAN: Recommend 14 days of treatment for esophageal candidiasis.. Charges/Coding Visit Charges Inpatient E&M: 81721 Subs Hosp L3
[2022-01-06 19:24] VITALS: PULSE 86
[2022-01-06 20:14] VITALS: BP 135/75; PULSE 75; RESP 16; TEMP 37; O2SAT 95
[2022-01-06 20:26] LABS: Bedside Glucose 142 mg/dL (74-106)
[2022-01-06 22:46] LABS: Bedside Glucose 184 mg/dL (74-106)
[2022-01-07 01:59] VITALS: PULSE 89
[2022-01-07 03:16] VITALS: BP 121/69; PULSE 77; RESP 16; TEMP 36.7; O2SAT 95
[2022-01-07 05:59] VITALS: PULSE 67
[2022-01-07 06:14] LABS: Absolute Lymphocyte Count 2.13 X10^3/uL (0.83-4.51); Absolute Neutrophil Count 3.5 X10^3/uL (2.0-7.7); Basophil# 0.02 X10^3/uL; Basophil% 0.3 % (0-1); Eosinophil# 0.17 X10^3/uL; Eosinophils% 2.7 % (0-5); Hematocrit 38.2 % (40-54); Hemoglobin 13.5 g/dL (13.0-16.5); Lymphocyte # 2.13 X10^3/ul (0.83-4.51); Lymphocyte % 33.9 % (19-41); Mean Corp Hgb Conc 35.3 g/dL (32-36); Mean Corpuscular Volume 82.2 fL (80-94); Mean Platelet Vol. 9.4 fl (6.2-12.0); Monocyte# 0.45 X10^3/uL; Monocyte% 7.2 % (0-10); NRBC Flagged by Analyzer 0 % (0-5); Neutrophil # 3.49 X10^3/uL (2.7-7.7); Neutrophil % 55.6 % (47-70); Platelet Count 208 K/mm3 (150-450); RBC Distribution Width CV 13.9 % (11.6-14.6); RBC Distribution Width SD 40.8 fl (35.1-43.9); Red Blood Count 4.65 M/mm3 (4.6-6.2); White Blood Count 6.3 K/mm3 (4.4-11.0)
[2022-01-07] MEDS: Dicyclomine 10 MG Capsule PO ×2 (06:27→11:11)
[2022-01-07 06:45] LABS: AST(SGOT) 8 U/L (15-37); Alanine Aminotransfer ALT/SGPT 11 U/L (16-61); Albumin, Serum 3.2 g/dL (3.2-5.0); Alkaline Phosphatase 64 U/L (45-117); Anion Gap 5 (5-15); BUN 9 mg/dL (7-18); BUN/Creat Ratio 12.9 RATIO (10-20); Calcium,Total 8.4 mg/dL (8.5-10.1); Chloride 107 mmol/L (98-107); EST Glomerular Filtration Rate 123 mL/min (>60); Est Glom Filt Rate - Afr Amer 148 mL/min (>60); Estimated Creatinine Clearance 139.66 ml/min; Globulin 3.1 g/dL (2.2-4.2); Glucose 150 mg/dL (74-106); Potassium 3.4 mmol/L (3.5-5.1); Protein, Total 6.3 g/dL (6.4-8.2); Sodium Level 139 mmol/L (136-145)
[2022-01-07 07:21] VITALS: O2SAT 96
[2022-01-07 07:40] LABS: Bedside Glucose 171 mg/dL (74-106)
[2022-01-07] MEDS: Potassium Chloride Oral Tablet 20 MEQ 40 MEQ PO (07:58)
[2022-01-07] MEDS: Insulin Lispro 100 UNIT/ML INSULN.PEN SC ×2 (08:29→13:00)
[2022-01-07] MEDS: Insulin Lispro 100 UNIT/ML INSULN.PEN 10 UNIT SC ×2 (08:29→13:00)
[2022-01-07 08:31] VITALS: BP 138/82; PULSE 70; RESP 16; TEMP 36.7; O2SAT 95
--- NOTE | 2022-01-07 08:50 | PCM.DC ---
Discharge Instructions Diet Discharge Diet: 1800 Calorie Control Diet Dressing / Incision Call your doctor if you observe: Fever of 101 or Higher, Coldness, Increased Pain, Numbness or Tingling, Change in Color, Inability to urinate, Inability to have a bowel movement, Shortness of breath, Dizziness, Fainting spells, Swelling in the ankles, Chest pain, Prolonged hiccupping, Increased palpitations (irregular heartbeat), Calf discomfort and Uncontrolled pain Follow Up Care Test Results: Test results from this visit will be discussed in further detail at your follow-up appointment, if applicable. Discharge Plan Admission Admit Date/Time: 01/04/22 16:28 Primary Reason for Your Visit: Attending Provider: Jayesh Perez Primary Care Provider: Care Physician,No Primary Discharge Orders/Prescriptions Prescriptions: New fluconazole [Diflucan] 200 mg tablet 200 mg PO DAILY Qty: 7 RF: 0 Continued metformin 500 MG tablet 500 mg PO BID RF: 0 Referrals / Follow Up: Donaldo Obregon DO [STAFF PHYSICIAN] - Within 1 Month (For esophageal candidiasis, mild gastroparesis) Care Physician,No Primary [Primary Care Provider] - Within 2 Weeks (For glucose control of diabetes mellitus, type 2) Disposition Disposition (needs filled in before D/C Order can be placed): Home, Self Care
[2022-01-07] MEDS: 0.9% Saline Lock 10 ML Syringe IV (10:01)
[2022-01-07] MEDS: NYSTATIN 500,000 UNIT/5 ML UDC 100000 UNIT PO (10:10)
--- NOTE | 2022-01-07 10:45 | PCM.DC.SUM ---
Providers Date of Admission: 01/04/22 Date of Discharge: 01/07/22 Primary Care Physician: Nayla Primary Care Phys Consultations 01/04/22 18:26 Consult: Gastroenterology Routine Consulting Provider: Maribeth Gastroenterology Reason for Consult: diarrhea with suspected duodenal diverticulum EMERGENT Consult: No MD Notified: Yes Date Notified: 01/04/22 Time Notified: 16:30 Method of Notification: Text Reason For Visit: DIARRHEA, ABNORMAL CT Diagnosis Discharge Diagnosis (1) Gastroparesis: Status: Acute Code(s): K31.84 - Gastroparesis (2) Abdominal pain: Status: Acute Code(s): R10.9 - Unspecified abdominal pain (3) Esophageal candidiasis: Status: Acute Code(s): B37.81 - Candidal esophagitis Medications at Discharge Home Medications metformin 500 mg PO BID 05/02/19 fluconazole [Diflucan] 200 mg PO DAILY #7 tab 01/07/22 glipizide 5 mg PO BID #60 tab 01/07/22 Hospital Course Summary of Care Provided Hospital Course: This 61-year-old obese gentleman was admitted to ER for diarrhea profuse watery consistency 1 day prior to admission. He also has abdominal pain but no nausea vomiting fever or chills. #Acute diarrhea with abdominal pain probably viral enterocolitis: Stool for C. difficile and enteric bacteriology panel are negative. With first and second portion of duodenum with suspicion of duodenal diverticulum. GI consult done, discussed reviewed. On Bentyl. 01/06: Patient had EGD done on 01/05. Esophageal plaques were found biopsied consistent with esophageal candidiasis. 3 nonbleeding angiodysplastic lesions in the stomach treated with argon coagulation. Large amount of food residue in the stomach and retained food in the duodenum. I discussed with Dr. Obregon and advised gastric emptying study and patient is going today. Since patient is n.p.o. for procedure on Diflucan IV. 01/07: Patient had gastric emptying study reported as mild delayed semisolid phase gastric emptying. Normal control. No gastroesophageal reflux. The emptying was calculated 61.2 minutes, normal 12 to 56 minutes. Patient abdominal pain diarrhea has resolved. Is discharged on fluconazole 200 mg daily for 7 more days. 2 rash patient has rash on his abdomen and inner wrist possible shingles. Patient never vaccinated single vaccine. Rash present more than 2 weeks and not worsened or burning sensation. I do not see any vesicular rashes but more papular. 01/06: Patient has multiple scab due to itching. Follow-up with dermatology as an outpatient. Patient does not meet criteria or indication for Valtrex #Type 2 diabetes mellitus with uncontrolled hyperglycemia: Accu-Chek insulin coverage per sliding scale hold metformin 01/06: Blood sugar fluctuates between 219-307. Insulin adjusted 01/07: Follow-up with PCP. Patient is discharged on glipizide 5 mg twice daily and continue Metformin. #Hypertension: IV hydralazine prn. Blood pressure is controlled. #Hypothyroidism: on synthroid #Hyperlipidemia: on statin #DVT prophylaxis: lovenox Code status: full code Discharge medication reconciliation done. Discharge follow-up instructions completed. Discharge process discussed with the patient and all questions were answered to patient's satisfaction. Follow-up with GI Dr. Obregon Total time spent, exact 35 minutes on discharge meds reconciliation, examination, coordination of care with nurses and ancillary staff, review of imaging and blood test and discussion with the patient on follow-up instructions. Physical Exam Narrative General: Alert, Oriented x3, Cooperative HEENT: Atraumatic, PERRLA, EOMI, Normocephalic Oral: Deep pharyngeal white plaques. Neck: Supple, No JVD, Negative Carotid Bruits Lungs: Air entry diminished in bilateral lung bases. No crepitation/rhonchi Cardiovascular: Regular rate, Regular Rhythm, Normal S1, Normal S2, No murmurs Abdomen: Bowel Sounds Present, Soft, Non-Distended. Nontender. No palpable mass : No renal angle tenderness. No suprapubic tenderness. Extremities: No edema, Capillary Refill Less than 3 Seconds Skin: No rashes, No breakdown Musculoskeletal: No Tenderness to Palpation of Joints or Extremities Neurological: Cranial nerves II-XII grossly intact, DTR 2+/4 and Symmetrical, Neuro grossly intact Psych/Mental Status: Flat affect. Weight / BMI Weight Weight: 214 lb 6.534 oz Body Mass Index (BMI) 25.4 ABG / Lab / Microbiology Data Result Diagrams: 01/07/22 04:57 01/07/22 04:57 Laboratory: Laboratory Results - last 24 hr 01/06/22 11:29: POC Glucose 307 H 01/06/22 16:48: POC Glucose 205 H 01/06/22 20:12: POC Glucose 142 H 01/06/22 22:34: POC Glucose 184 H 01/07/22 04:57: WBC 6.3, RBC 4.65, Hgb 13.5, Hct 38.2 L, MCV 82.2, MCH 29.0, MCHC 35.3, RDW Std Deviation 40.8, RDW Coeff of Manjinder 13.9, Plt Count 208, MPV 9.4, Immature Gran % (Auto) 0.300, Neut % (Auto) 55.6, Lymph % (Auto) 33.9, [place] % (Auto) 7.2, Eos % (Auto) 2.7, Baso % (Auto) 0.3, Absolute Neuts (auto) 3.5, Absolute Lymphs (auto) 2.13, Nucleated RBC % 0 01/07/22 04:57: Sodium 139, Potassium 3.4 L, Chloride 107, Carbon Dioxide 27.0, Anion Gap 5, BUN 9, Creatinine 0.70, Estim Creat Clear Calc 139.66, Est GFR (MDRD) Af Amer 148, Est GFR (MDRD) Non-Af 123, BUN/Creatinine Ratio 12.9, Glucose 150 H, Calcium 8.4 L, Total Bilirubin 0.60, AST 8 L, ALT 11 L, Alkaline Phosphatase 64, Total Protein 6.3 L, Albumin 3.2, Globulin 3.1, Albumin/Globulin Ratio 1.0 01/07/22 07:36: POC Glucose 171 H Microbiology: Microbiology 01/04/22 14:29 Stool Stool Lactoferrin - Final 01/04/22 14:29 Stool Enteric Bacteriology - Final 01/04/22 14:29 Stool C. difficile DNA Amplification - Final Radiography Diagnostic Testing: Radiology Impression Gastric Emptying Nuclear Medicine 01/06/22 06:00 IMPRESSION: 1. ABNORMAL 99m Tc sulfur colloid semi-solid phase (oatmeal) gastric emptying imaging examination. A. There is mild delayed semi-solid phase gastric emptying compared to normal controls with maintained first order kinetics throughout all components of the examination. (Norris joseph al, J Nucl Med Tech 38: 186, 2010). Electronically Signed: Dakotah Stallworth DO at 10:57 EST , Meaningful Use Info Meaningful Use Diagnoses (Choose all that apply): None applicable Discharge Plan Admission Admit Date/Time: 01/04/22 16:28 Primary Reason for Your Visit: Attending Provider: Jayesh Perez Primary Care Provider: Care Physician,No Primary Discharge Orders/Prescriptions Prescriptions: New fluconazole [Diflucan] 200 mg tablet 200 mg PO DAILY Qty: 7 RF: 0 glipizide 5 mg tablet 5 mg PO BID Qty: 60 RF: 1 Continued metformin 500 MG tablet 500 mg PO BID RF: 0 Referrals / Follow Up: Donaldo Obregon DO [STAFF PHYSICIAN] - Within 1 Month (For esophageal candidiasis, mild gastroparesis) Care Physician,No Primary [Primary Care Provider] - Within 2 Weeks (For glucose control of diabetes mellitus, type 2) Disposition Disposition (needs filled in before D/C Order can be placed): Home, Self Care Charges/Coding Visit Charges Inpatient E&M: [id number] Disch Hosp
[2022-01-07 11:11] LABS: Bedside Glucose 161 mg/dL (74-106)
== END 2022-01-07 13:50 | disposition home or self-care (01) ==
LOC: ED 14:31 → MS3 16:29
PROVIDERS: Internal Medicine Gastroenterology; Admitting Provider Student in an Organized Health Care Education/Training Program; Emergency Provider Emergency Medicine; Visit Provider Internal Medicine
PROC: 0DJ08ZZ Inspection of Upper Intestinal Tract, Via Natural or Artificial Opening Endoscopic (ICD-10-PCS; CPT 43235; principal; 2022-01-05 15:40)
DX: E11.43 Type 2 diabetes mellitus with diabetic autonomic (poly)neuropathy (principal); B37.81 Candidal esophagitis; J44.9 Chronic obstructive pulmonary disease, unspecified; E11.65 Type 2 diabetes mellitus with hyperglycemia; I25.10 Atherosclerotic heart disease of native coronary artery without angina pectoris; E03.9 Hypothyroidism, unspecified; E78.5 Hyperlipidemia, unspecified; I10 Essential (primary) hypertension; R19.7 Diarrhea, unspecified; I25.2 Old myocardial infarction; Z91.14 Patient's other noncompliance with medication regimen; R21 Rash and other nonspecific skin eruption; Z79.899 Other long term (current) drug therapy; Z79.890 Hormone replacement therapy; Z79.84 Long term (current) use of oral hypoglycemic drugs; G47.30 Sleep apnea, unspecified; K31.84 Gastroparesis
CPT/HCPCS: 43239; 43255; 36415; 74177; 78264; 80048; 80053; 81001; 82962; 83605; 83615; 83630; 83690; 85025; 85652; 86140; 87177; 87209; 87493; 87506; 88305; 88312; 96361; 96365; 96366; 97802; 99218; 99284; A9541; J7030; Q9967; A4216; G0378

== ENCOUNTER 2022-01-08 07:03 | Emergency (ER) | payer MEDICAID, SELFPAY ==
[2022-01-08 07:05] VITALS: BP 143/93; PULSE 87; RESP 18; TEMP 37; O2SAT 97; BMI 25.9
--- NOTE | 2022-01-08 07:16 | EDS_ITS ---
HPI HPI - GI History of Present Illness Chief Complaint: Diarrhea Informant: patient Abdominal Pain/Flank Pain Onset: Days Context: Gradual Onset Location: Diffuse Nausea/Vomiting/Emesis GI Symptom: Negative for Nausea and Vomiting Diarrhea/Melena/Hematochezia GI Symptom: Positive for Diarrhea; Negative for Melena and Hematochezia Onset: Today Stool Quality: Positive for Watery Severity: Moderate Associated Symptoms Associated Symptoms: Negative for Dysuria, Frequency, Hematuria and Urgency Narrative Narrative: 61-year-old male no history of COPD, diabetes, cardiac stent and prior alcohol abuse. Recent admission and discharge from this facility for diarrhea. He was C. difficile negative. There was not a specific cause. 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 States he has been having diarrhea for last 24 hours about 10 episodes. He denies any melena. Denies any fever. Prior similar symptoms: Yes Recent Illness/Hospitalization: Yes PFSH PFSH Medical History Back pain due to injury Chronic pain COPD (chronic obstructive pulmonary disease) Current use of insulin Depression Diabetes High cholesterol History of stress test Hyperlipidemia Hypertension Injury of head and neck Myocardial infarct Non-smoker Restless legs Sleep apnea Home Medications metformin 500 mg PO BID 05/02/19 [History Last Taken 01/04/22] fluconazole [Diflucan] 200 mg PO DAILY #7 tab 01/07/22 [Rx Last Taken Unknown] glipizide 5 mg PO BID #60 tab 01/07/22 [Rx Last Taken Unknown] Allergy/AdvReac Type Severity Reaction Status Date / Time diphenhydramine HCl Allergy Rash Verified 01/08/22 07:07 [From Benadryl] Penicillins Allergy Rash Verified 01/08/22 07:07 venom-honey bee Allergy Swelling Verified 01/08/22 07:07 [bee venom (honey bee)] Surgical History History of coronary artery stent placement Social History household members: none Smoking Status: Never smoker substance use type: does not use ROS ROS ED ROS Narrative Diarrhea. Review of Systems ROS Unobtainable: Denies due to encephalopathy Constitutional Constitutional ED: Denies fever(s) ENT ENT ED: Denies ear pain Cardiovascular Cardiovascular: Denies chest pain Respiratory/Chest Respiratory/Chest: Denies cough or dyspnea Gastrointestinal Gastrointestinal: Reports diarrhea; Denies abdominal pain, nausea or vomiting Genitourinary Genitourinary ED: Denies dysuria Musculoskeletal Musculoskeletal: Denies myalgias Integumentary Denies rash Neurologic Neurologic: Denies headache(s) Psychiatric Psychiatric: Denies depression Endocrine Endocrinology: Denies polyuria Hematologic/Lymphatic Hematologic/Lymphatic: Denies easy bruising Allergic/Immunologic Allergic/Immunologic ED: Denies urticaria EXAM Physical Exam Narrative Exam Narrative: 61-year-old male no acute distress vital signs stable afebrile. He does not look septic or toxic. He does not look significantly dehydrated. HEENT exam unremarkable. Neck nontender. Lungs clear to auscultation bilaterally. Heart regular rhythm rate about 87 no murmur. Abdomen soft nontender. Normal bowel sounds no peritoneal signs. Moving all 4 extremities. Nontender no edema. Back nontender. Neurologically is awake and alert. No focal motor deficits. Const Vital Signs: 01/08/22 07:05 Temperature 98.6 F Temperature Source Oral Pulse Rate 87 Respiratory Rate 18 Blood Pressure 143/93 H Blood Pressure Mean 109 Pulse Ox 97 Oxygen Delivery Method Room Air Positive well nourished and well developed; Negative for obese, cachectic, contractures or unkempt General Appearance ED: well developed and NAD; Negative for unkempt, cachectic, contractures or pallor Nutritional Appearance: Negative for cachectic or obese HEENT Reports moist mucous membranes normocephalic and atraumatic Eyes PERRL and EOMs intact bilaterally Neck no lymphadenopathy, supple and no JVD General: Negative for tenderness Resp normal respiratory effort and clear to auscultation bilaterally Auscultation: Negative for rales, rhonchi or wheezes Cardio regular rate, regular rhythm, S1 normal heart sound, S2 normal heart sound and no murmurs GI non-tender, non-distended and no masses Auscultation: normoactive bowel sounds Palpation: soft; Negative for tender, guarding or rigid Back/Spine no CVA tenderness General Back: Negative for CVA tenderness Cervical Spine: Negative for cervical spine tenderness Thoracic Spine / Upper Back: Negative for thoracic spinal tenderness Extremity full ROM General Extremety ED: Negative for edema or tenderness General Extremity: Negative for edema Neuro moves all extremities Sensorium / Orientation: alert, oriented to person, oriented to place and oriented to time; Negative for orientation impaired Motor Exam: strength 5/5 throughout Psych mental status grossly normal and thought process normal Appearance: Negative for unkempt Mood & Affect: Negative for depressed or tearful Skin no wounds General Skin Exam: Negative for jaundice or pallor Lesions: no lesions Rashes: no rashes MDM MDM MDM Narrative Medical decision making narrative: 61-year-old with recent admission for diarrhea complaining of diarrhea again. Exam benign. Treated with IV fluids and screening labs. He had negative C. difficile cultures done recently. Repeat exam at 11 AM patient is doing well. He denies tussis test results. To be discharged home. Imodium as needed for the diarrhea. Lab Data Attestation: I reviewed the patient's lab results. Lab results narrative: CBC unremarkable white count of 10. H&H of 14 and 41. Platelets normal. Electrolytes show a sodium 135 gap is 6 normal BUN of 17 and creatinine of 1. Liver enzymes unremarkable patient is diabetic his glucose is elevated to 94. Labs: Laboratory Results - last 24 hr 01/08/22 01/08/22 07:38 07:38 WBC 10.0 RBC 5.06 Hgb 14.6 Hct 41.0 MCV 81.0 MCH 28.9 MCHC 35.6 RDW Std Deviation 40.0 RDW Coeff of Manjinder 13.9 Plt Count 228 MPV 9.2 Immature Gran % (Auto) 0.500 Neut % (Auto) 80.9 H Lymph % (Auto) 13.4 L [place] % (Auto) 4.4 Eos % (Auto) 0.5 Baso % (Auto) 0.3 Absolute Neuts (auto) 8.1 H Absolute Lymphs (auto) 1.33 Nucleated RBC % 0 Sodium 135 L Potassium 3.6 Chloride 104 Carbon Dioxide 25.0 Anion Gap 6 BUN 17 Creatinine 1.01 Estim Creat Clear Calc 96.79 Est GFR (MDRD) Af Amer 96 Est GFR (MDRD) Non-Af 80 BUN/Creatinine Ratio 16.8 Glucose 294 H Calcium 9.3 Total Bilirubin 0.60 AST 8 L ALT 16 Alkaline Phosphatase 79 Total Protein 7.6 Albumin 4.0 Globulin 3.6 Albumin/Globulin Ratio 1.1 Discharge Plan Triage Chief Complaint: Diarrhea ED Provider: Avni Cash Dx/Rx/DC Orders Clinical Impression: Diarrhea, History of diabetes mellitus, History of coronary artery disease, Acute hyperglycemia Instructions: ED Diarrhea, Unknown Cause Prescriptions: No Action metformin 500 MG tablet 500 mg PO BID RF: 0 fluconazole [Diflucan] 200 mg tablet 200 mg PO DAILY Qty: 7 RF: 0 glipizide 5 mg tablet 5 mg PO BID Qty: 60 RF: 1 Primary Care Provider: Care Physician,No Primary Referrals: Guilherme Benoit MD [NON-STAFF] - 1 Week if not improving Care Physician,No Primary [Primary Care Provider] - Activity Restrictions/Additional Instructions: Your labs today were unremarkable other than your blood sugar is elevated to 94. Watch that closely. Plenty of fluids and rest. Call and follow-up with your doctor in a week to ensure this is improving. You may use [id number] Imodium for the diarrhea. Disposition Disposition: Home, Self Care
[2022-01-08] MEDS: 0.9% Normal Saline 1,000 ML 1000 ML IV (07:40)
[2022-01-08 07:46] LABS: Absolute Lymphocyte Count 1.33 X10^3/uL (0.83-4.51); Absolute Neutrophil Count 8.1 X10^3/uL (2.0-7.7); Basophil# 0.03 X10^3/uL; Basophil% 0.3 % (0-1); Eosinophil# 0.05 X10^3/uL; Eosinophils% 0.5 % (0-5); Hemoglobin 14.6 g/dL (13.0-16.5); Lymphocyte # 1.33 X10^3/ul (0.83-4.51); Lymphocyte % 13.4 % (19-41); Mean Corp Hgb Conc 35.6 g/dL (32-36); Mean Corpuscular Hgb 28.9 pg (27.0-32.0); Mean Platelet Vol. 9.2 fl (6.2-12.0); Monocyte# 0.44 X10^3/uL; Monocyte% 4.4 % (0-10); NRBC Flagged by Analyzer 0 % (0-5); Neutrophil # 8.05 X10^3/uL (2.7-7.7); Neutrophil % 80.9 % (47-70); Platelet Count 228 K/mm3 (150-450); RBC Distribution Width CV 13.9 % (11.6-14.6); Red Blood Count 5.06 M/mm3 (4.6-6.2)
[2022-01-08 08:04] LABS: ALB/GLOB Ratio 1.1 RATIO (0.9-2.4); AST(SGOT) 8 U/L (15-37); Alanine Aminotransfer ALT/SGPT 16 U/L (16-61); Alkaline Phosphatase 79 U/L (45-117); Anion Gap 6 (5-15); BUN 17 mg/dL (7-18); BUN/Creat Ratio 16.8 RATIO (10-20); Calcium,Total 9.3 mg/dL (8.5-10.1); Chloride 104 mmol/L (98-107); Creatinine, Serum 1.01 mg/dL (0.70-1.30); EST Glomerular Filtration Rate 80 mL/min (>60); Est Glom Filt Rate - Afr Amer 96 mL/min (>60); Estimated Creatinine Clearance 96.79 ml/min; Globulin 3.6 g/dL (2.2-4.2); Glucose 294 mg/dL (74-106); Potassium 3.6 mmol/L (3.5-5.1); Protein, Total 7.6 g/dL (6.4-8.2); Sodium Level 135 mmol/L (136-145)
[2022-01-08 11:14] VITALS: BP 136/91; PULSE 78; RESP 16
== END 2022-01-08 11:16 | disposition home or self-care (01) ==
PROVIDERS: Emergency Provider Emergency Medicine; Visit Provider Emergency Medicine
DX: R19.7 Diarrhea, unspecified (principal); E11.65 Type 2 diabetes mellitus with hyperglycemia; I25.10 Atherosclerotic heart disease of native coronary artery without angina pectoris; I25.2 Old myocardial infarction; G47.30 Sleep apnea, unspecified; Z95.5 Presence of coronary angioplasty implant and graft; Z79.84 Long term (current) use of oral hypoglycemic drugs; Z79.899 Other long term (current) drug therapy
CPT/HCPCS: 80053; 85025; 96360; 96361; 99285; J7030

== ENCOUNTER 2022-01-31 08:09 | Emergency (ER) | payer MEDICAID, SELFPAY ==
[2022-01-31 08:10] VITALS: BP 137/90; PULSE 86; RESP 18; TEMP 36.6; O2SAT 99; BMI 28.9
--- NOTE | 2022-01-31 08:19 | ED.VIS.GI ---
HPI HPI - GI History of Present Illness Chief Complaint: Diarrhea Informant: patient Abdominal Pain/Flank Pain Onset: Month(s) Context: Gradual Onset Timing: Continuous Nausea/Vomiting/Emesis GI Symptom: Negative for Nausea and Vomiting Diarrhea/Melena/Hematochezia GI Symptom: Positive for Diarrhea; Negative for Melena and Hematochezia Onset: Month(s) Stool Quality: Positive for Watery Associated Symptoms Associated Symptoms: Negative for Dysuria, Frequency, Hematuria and Urgency Narrative Narrative: 61-year-old male history of diabetes, coronary artery disease. States he has had chronic diarrhea for for 5 months if not longer. Denies any med changes. No recent antibiotics. No history of inflammatory bowel disease. States he was actually admitted he believes in December for with this. He does not have a specific diagnosis. Today was in a restaurant had an episode of diarrhea where he could not even make it to the bathroom. He denies any melena. He denies any fever. He denies any nausea or vomiting. Says he has this every day all his stools now are watery. Sometimes 3-4 times a day. He does not feel dehydrated. Prior similar symptoms: Yes Recent Illness/Hospitalization: Yes [facility] Medical History Back pain due to injury Chronic pain COPD (chronic obstructive pulmonary disease) Current use of insulin Depression Diabetes Esophageal candidiasis High cholesterol History of stress test Hyperlipidemia Hypertension Injury of head and neck Myocardial infarct Non-smoker Restless legs Sleep apnea Home Medications metformin 500 mg PO BID 05/02/19 [History Last Taken 01/04/22] fluconazole [Diflucan] 200 mg PO DAILY #7 tab 01/07/22 [Rx Last Taken Unknown] glipizide 5 mg PO BID #60 tab 01/07/22 [Rx Last Taken Unknown] Allergy/AdvReac Type Severity Reaction Status Date / Time diphenhydramine HCl Allergy Rash Verified 01/31/22 08:12 [From Benadryl] Penicillins Allergy Rash Verified 01/31/22 08:12 venom-honey bee Allergy Swelling Verified 01/31/22 08:12 [bee venom (honey bee)] Surgical History History of coronary artery stent placement Social History household members: none Smoking Status: Never smoker substance use type: does not use ROS ROS ED ROS Narrative Diarrhea. Review of Systems ROS Unobtainable: Denies due to encephalopathy Constitutional Constitutional ED: Denies fever(s) ENT ENT ED: Denies ear pain Cardiovascular Cardiovascular: Denies chest pain Respiratory/Chest Respiratory/Chest: Denies dyspnea Gastrointestinal Gastrointestinal: Denies abdominal pain Genitourinary Genitourinary ED: Denies dysuria Musculoskeletal Musculoskeletal: Denies myalgias Integumentary Denies rash Neurologic Neurologic: Denies headache(s) Psychiatric Psychiatric: Denies depression Endocrine Endocrinology: Denies polyuria Hematologic/Lymphatic Hematologic/Lymphatic: Denies easy bruising Allergic/Immunologic Allergic/Immunologic ED: Denies urticaria EXAM Physical Exam Narrative Exam Narrative: 61-year-old male no acute distress. Vital signs stable afebrile. H EENT exam unremarkable. Moist extremities. Neck nontender. No lymphadenopathy. Lungs clear to auscultation bilaterally. Heart regular rhythm no murmur rate about 85. Abdomen soft, nondistended normal bowel sounds no peritoneal signs. Moving all 4 extremities. Nontender. Back nontender. Neurologically is awake and alert with no focal motor deficits. Patient clinically looks well. He does not look dehydrated. He has no abdominal tenderness. Const Vital Signs: 01/31/22 08:10 Temperature 97.8 F Temperature Source Temporal Pulse Rate 86 Respiratory Rate 18 Blood Pressure 137/90 H Blood Pressure Mean 105 Pulse Ox 99 Oxygen Delivery Method Room Air Positive well nourished, well developed and obese; Negative for cachectic, contractures or unkempt General Appearance ED: well developed and NAD; Negative for unkempt, cachectic, contractures or pallor Nutritional Appearance: obese; Negative for cachectic HEENT Reports moist mucous membranes normocephalic and atraumatic Eyes PERRL and EOMs intact bilaterally General Eye ED: Negative for pale conjunctiva or scleral icterus Neck no lymphadenopathy, supple and no JVD General: Negative for tenderness Resp normal respiratory effort and clear to auscultation bilaterally Auscultation: Negative for rales, rhonchi or wheezes Cardio regular rate, regular rhythm, S1 normal heart sound, S2 normal heart sound and no murmurs GI non-tender, non-distended and no masses Auscultation: normoactive bowel sounds Palpation: soft; Negative for tender, guarding or rigid Back/Spine no CVA tenderness General Back: Negative for CVA tenderness Extremity full ROM General Extremety ED: Negative for edema or tenderness General Extremity: Negative for edema Neuro moves all extremities Sensorium / Orientation: alert, oriented to person, oriented to place and oriented to time; Negative for orientation impaired, confused, lethargic or stuporous Motor Exam: strength 5/5 throughout Psych mental status grossly normal and thought process normal Appearance: Negative for unkempt Attitude: No agitated Mood & Affect: Negative for depressed or tearful Skin no wounds General Skin Exam: Negative for jaundice or pallor Lesions: no lesions Rashes: no rashes and No rashes noted MDM MDM MDM Narrative Medical decision making narrative: 61-year-old male with 5+ month history of diarrhea. Clinically looks well. He once an answer. Explained to him we may not come up with a diagnosis today. Screening labs obtained he does not look dehydrated. Repeat exam he is doing well. He will be discharged to home with outpatient follow-up with GI for chronic diarrhea. Lab Data Attestation: I reviewed the patient's lab results. Lab results narrative: CBC normal. Normal white cells. H&H 14 and 41. Normal platelets. Unremarkable.. Normal BUN and creatinine. Liver enzymes normal. Glucose 172. Stool cultures were ordered patient is not been able to have a bowel movement here. Labs: Laboratory Results - last 24 hr 01/31/22 01/31/22 08:33 08:33 WBC 8.4 RBC 5.07 Hgb 14.5 Hct 41.0 MCV 80.9 MCH 28.6 MCHC 35.4 RDW Std Deviation 39.8 RDW Coeff of Manjinder 13.8 Plt Count 222 MPV 9.1 Immature Gran % (Auto) 0.400 Neut % (Auto) 66.2 Lymph % (Auto) 21.8 [place] % (Auto) 7.3 Eos % (Auto) 3.9 Baso % (Auto) 0.4 Absolute Neuts (auto) 5.6 Absolute Lymphs (auto) 1.83 Nucleated RBC % 0 Sodium 140 Potassium 3.7 Chloride 108 H Carbon Dioxide 26.0 Anion Gap 6 BUN 14 Creatinine 0.78 Estim Creat Clear Calc 125.34 Est GFR (MDRD) Af Amer 131 Est GFR (MDRD) Non-Af 108 BUN/Creatinine Ratio 18.0 Glucose 172 H Calcium 8.4 L Total Bilirubin 0.60 AST 13 L ALT 14 L Alkaline Phosphatase 68 Total Protein 7.0 Albumin 3.7 Globulin 3.3 Albumin/Globulin Ratio 1.1 Discharge Plan Triage Chief Complaint: Diarrhea ED Provider: Avni Cash Dx/Rx/DC Orders Clinical Impression: Diarrhea, History of diabetes mellitus Instructions: ED Diarrhea, Unknown Cause Prescriptions: No Action metformin 500 MG tablet 500 mg PO BID RF: 0 fluconazole [Diflucan] 200 mg tablet 200 mg PO DAILY Qty: 7 RF: 0 glipizide 5 mg tablet 5 mg PO BID Qty: 60 RF: 1 Primary Care Provider: Care Physician,No Primary Referrals: Friend,Donaldo, DO [STAFF PHYSICIAN] - As soon as possible Care Physician,No Primary [Primary Care Provider] - Activity Restrictions/Additional Instructions: Your lab are normal. Plenty of fluids and rest. Use Imodium for the diarrhea. Follow-up with a indigo mixer for further evaluation of your chronic diarrhea to try to get a colitis. Disposition Disposition: Home, Self Care
[2022-01-31 08:38] LABS: Absolute Lymphocyte Count 1.83 X10^3/uL (0.83-4.51); Absolute Neutrophil Count 5.6 X10^3/uL (2.0-7.7); Basophil# 0.03 X10^3/uL; Basophil% 0.4 % (0-1); Eosinophil# 0.33 X10^3/uL; Eosinophils% 3.9 % (0-5); Hemoglobin 14.5 g/dL (13.0-16.5); Lymphocyte # 1.83 X10^3/ul (0.83-4.51); Lymphocyte % 21.8 % (19-41); Mean Corp Hgb Conc 35.4 g/dL (32-36); Mean Corpuscular Hgb 28.6 pg (27.0-32.0); Mean Corpuscular Volume 80.9 fL (80-94); Mean Platelet Vol. 9.1 fl (6.2-12.0); Monocyte# 0.61 X10^3/uL; Monocyte% 7.3 % (0-10); NRBC Flagged by Analyzer 0 % (0-5); Neutrophil # 5.56 X10^3/uL (2.7-7.7); Neutrophil % 66.2 % (47-70); Platelet Count 222 K/mm3 (150-450); RBC Distribution Width CV 13.8 % (11.6-14.6); RBC Distribution Width SD 39.8 fl (35.1-43.9); Red Blood Count 5.07 M/mm3 (4.6-6.2); White Blood Count 8.4 K/mm3 (4.4-11.0)
[2022-01-31] MEDS: Loperamide 2 MG Capsule 4 MG PO (08:38)
[2022-01-31 08:55] LABS: ALB/GLOB Ratio 1.1 RATIO (0.9-2.4); AST(SGOT) 13 U/L (15-37); Alanine Aminotransfer ALT/SGPT 14 U/L (16-61); Albumin, Serum 3.7 g/dL (3.2-5.0); Alkaline Phosphatase 68 U/L (45-117); Anion Gap 6 (5-15); BUN 14 mg/dL (7-18); Calcium,Total 8.4 mg/dL (8.5-10.1); Chloride 108 mmol/L (98-107); Creatinine, Serum 0.78 mg/dL (0.70-1.30); EST Glomerular Filtration Rate 108 mL/min (>60); Est Glom Filt Rate - Afr Amer 131 mL/min (>60); Estimated Creatinine Clearance 125.34 ml/min; Globulin 3.3 g/dL (2.2-4.2); Glucose 172 mg/dL (74-106); Potassium 3.7 mmol/L (3.5-5.1); Sodium Level 140 mmol/L (136-145)
[2022-01-31 09:08] VITALS: BP 124/77; PULSE 62; RESP 15; O2SAT 98
== END 2022-01-31 09:10 | disposition home or self-care (01) ==
PROVIDERS: Emergency Provider Emergency Medicine; Visit Provider Emergency Medicine
DX: R19.7 Diarrhea, unspecified (principal); I25.10 Atherosclerotic heart disease of native coronary artery without angina pectoris; I25.2 Old myocardial infarction; G47.30 Sleep apnea, unspecified; E66.9 Obesity, unspecified; Z95.5 Presence of coronary angioplasty implant and graft
CPT/HCPCS: 80053; 85025; 99284

== ENCOUNTER 2022-03-02 18:53 | Emergency (ER) | payer MEDICAID, SELFPAY ==
[2022-03-02 18:53] VITALS: BP 145/96; PULSE 82; RESP 15; TEMP 36.2; O2SAT 98; BMI 27.7
--- NOTE | 2022-03-02 19:07 | EDS_ITS ---
HPI HPI - GI History of Present Illness Chief Complaint: Diarrhea Informant: patient Abdominal Pain/Flank Pain Onset: Month(s) Context: Gradual Onset Timing: Intermittent Nausea/Vomiting/Emesis GI Symptom: Negative for Nausea and Vomiting Diarrhea/Melena/Hematochezia GI Symptom: Positive for Diarrhea; Negative for Melena and Hematochezia Stool Quality: Positive for Loose Severity: Moderate Associated Symptoms Associated Symptoms: Negative for Dysuria, Frequency, Hematuria and Urgency Narrative Narrative: 61-year-old male with a past medical history of CAD, [place], hypertension, diabetes, pancreatitis, prior alcohol abuse but states he is not drinking now. States the last several months he has had diarrhea. He says at times its not bad other times he has severe diarrhea. He denies any melena. He denies any abdominal pain. He denies any fever. He denies any nausea or vomiting. He drinks city water. He lives alone at home. His last antibiotics was 2 months ago but he was having diarrhea before that. He denies any recent hospitalizations. He does not believe he is ever had C. difficile before. Prior similar symptoms: Yes Recent Illness/Hospitalization: No PFSH PFSH Medical History Back pain due to injury Chronic pain COPD (chronic obstructive pulmonary disease) Current use of insulin Depression Diabetes Esophageal candidiasis High cholesterol History of stress test Hyperlipidemia Hypertension Injury of head and neck Myocardial infarct Non-smoker Restless legs Sleep apnea Home Medications metformin 500 mg PO BID 05/02/19 [History Last Taken 01/04/22] fluconazole [Diflucan] 200 mg PO DAILY #7 tab 01/07/22 [Rx Last Taken Unknown] glipizide 5 mg PO BID #60 tab 01/07/22 [Rx Last Taken Unknown] Allergy/AdvReac Type Severity Reaction Status Date / Time diphenhydramine HCl Allergy Rash Verified 03/02/22 18:55 [From Benadryl] Penicillins Allergy Rash Verified 03/02/22 18:55 venom-honey bee Allergy Swelling Verified 03/02/22 18:55 [bee venom (honey bee)] Surgical History History of coronary artery stent placement Social History household members: none Smoking Status: Never smoker substance use type: does not use ROS ROS ED ROS Narrative Diarrhea. Review of Systems ROS Unobtainable: Denies due to encephalopathy Constitutional Constitutional ED: Denies fever(s) ENT ENT ED: Denies ear pain Cardiovascular Cardiovascular: Denies chest pain Respiratory/Chest Respiratory/Chest: Denies dyspnea Gastrointestinal Gastrointestinal: Denies abdominal pain, diarrhea, nausea or vomiting Genitourinary Genitourinary ED: Denies dysuria Musculoskeletal Musculoskeletal: Denies myalgias Integumentary Denies rash Neurologic Neurologic: Denies headache(s) Psychiatric Psychiatric: Denies depression Endocrine Endocrinology: Denies polyuria Hematologic/Lymphatic Hematologic/Lymphatic: Denies easy bruising Allergic/Immunologic Allergic/Immunologic ED: Denies urticaria EXAM Physical Exam Narrative Exam Narrative: Male no acute distress. Vital signs stable afebrile. Does not look septic or toxic. He does not look dehydrated. He is in no distress. H EENT exam unremarkable. Moist with memories. Lungs clear to auscultation. Heart regular rhythm rate about 80 no murmur. Abdomen soft, nontender, nondistended normal bowel sounds no peritoneal signs. Moving all 4 extremities. Nontender no edema. Neurologically is awake and alert. Patient clinically does not look dehydrated. Const Vital Signs: 03/02/22 18:53 Temperature 97.2 F L Temperature Source Temporal Pulse Rate 82 Respiratory Rate 15 Blood Pressure 145/96 H Blood Pressure Mean 112 Pulse Ox 98 Oxygen Delivery Method Room Air Positive well nourished and well developed; Negative for obese, cachectic, contractures or unkempt General Appearance ED: well developed and NAD; Negative for unkempt, cachectic, contractures or pallor Nutritional Appearance: Negative for cachectic or obese HEENT Reports moist mucous membranes; Denies TM's clear or dry mucous membranes normocephalic and atraumatic; Negative for trauma or tenderness Tympanic Membrane ED: Negative for TM's clear Mouth ED: No dry mucous membranes Mouth: No dry mucous membranes Eyes PERRL and EOMs intact bilaterally Neck no lymphadenopathy, supple and no JVD General: Negative for tenderness Resp normal respiratory effort and clear to auscultation bilaterally Auscultation: Negative for rales, rhonchi or wheezes Cardio regular rate, regular rhythm, S1 normal heart sound, S2 normal heart sound and no murmurs GI non-tender, non-distended and no masses Auscultation: normoactive bowel sounds Palpation: soft; Negative for tender, guarding, rigid or rebound tenderness present Back/Spine no CVA tenderness General Back: Negative for CVA tenderness Cervical Spine: Negative for cervical spine tenderness Thoracic Spine / Upper Back: Negative for thoracic spinal tenderness Extremity full ROM General Extremety ED: Negative for edema or tenderness General Extremity: Negative for edema Neuro moves all extremities Sensorium / Orientation: alert, oriented to person, oriented to place and oriented to time; Negative for orientation impaired, confused, lethargic or stuporous Motor Exam: strength 5/5 throughout Psych mental status grossly normal and thought process normal Appearance: Negative for unkempt Skin no wounds General Skin Exam: Negative for jaundice or pallor Lesions: no lesions Rashes: no rashes MDM MDM MDM Narrative Medical decision making narrative: 61-year-old male complaining of months of diarrhea. Exam is benign. He does not look dehydrated. Screening labs will be obtained. I will send the C. difficile if he has a bowel movement here. States he has been using Imodium at home. In the past this has been treated with just Imodium. Repeat exam patient is doing well at 8:22 PM. To be discharged to home. His labs are unremarkable. He said no bowel movement here to send for cultures. Will be instructed to follow-up with a primary care physician for further evaluation. Continue his Imodium at home. Plenty of fluids. Lab Data Attestation: I reviewed the patient's lab results. Lab results narrative: CBC shows a white count of 7. H&H 13 and 39. Platelets 221. Electrolytes show a gap of 7 normal BUN and creatinine of 14 and 0.9. Liver enzymes unremarkable. Glucose 222. Stool culture ordered for C. difficile he had no bowel movement here. Labs: Laboratory Results - last 24 hr 03/02/22 03/02/22 19:10 19:10 WBC 7.2 RBC 4.75 Hgb 13.7 Hct 39.0 L MCV 82.1 MCH 28.8 MCHC 35.1 RDW Std Deviation 40.8 RDW Coeff of Manjinder 13.9 Plt Count 221 MPV 9.6 Immature Gran % (Auto) 0.300 Neut % (Auto) 66.5 Lymph % (Auto) 21.9 [place] % (Auto) 6.8 Eos % (Auto) 3.8 Baso % (Auto) 0.7 Absolute Neuts (auto) 4.8 Absolute Lymphs (auto) 1.57 Nucleated RBC % 0 Sodium 141 Potassium 3.5 Chloride 108 H Carbon Dioxide 26.0 Anion Gap 7 BUN 14 Creatinine 0.94 Estim Creat Clear Calc 104.00 Est GFR (MDRD) Af Amer 105 Est GFR (MDRD) Non-Af 86 BUN/Creatinine Ratio 14.9 Glucose 222 H Calcium 8.5 Total Bilirubin 0.40 AST 8 L ALT 15 L Alkaline Phosphatase 69 Total Protein 7.2 Albumin 3.7 Globulin 3.5 Albumin/Globulin Ratio 1.1 Discharge Plan Triage Chief Complaint: Diarrhea ED Provider: Avni Cash Dx/Rx/DC Orders Clinical Impression: Diarrhea, History of diabetes mellitus, History of coronary artery disease Instructions: ED Diarrhea, Unknown Cause Prescriptions: No Action metformin 500 MG tablet 500 mg PO BID RF: 0 fluconazole [Diflucan] 200 mg tablet 200 mg PO DAILY Qty: 7 RF: 0 glipizide 5 mg tablet 5 mg PO BID Qty: 60 RF: 1 Primary Care Provider: Care Physician,No Primary Referrals: Chad Riddle MD [STAFF PHYSICIAN] - As soon as possible Care Physician,No Primary [Primary Care Provider] - Activity Restrictions/Additional Instructions: Plenty of fluids and rest. Follow-up with a primary care physician for further evaluation. We do not have a specific cause for your diarrhea currently. Continue using Imodium as needed. Disposition Disposition: Home, Self Care
[2022-03-02 19:42] LABS: Absolute Lymphocyte Count 1.57 X10^3/uL (0.83-4.51); Absolute Neutrophil Count 4.8 X10^3/uL (2.0-7.7); Basophil# 0.05 X10^3/uL; Basophil% 0.7 % (0-1); Eosinophil# 0.27 X10^3/uL; Eosinophils% 3.8 % (0-5); Hemoglobin 13.7 g/dL (13.0-16.5); Lymphocyte # 1.57 X10^3/ul (0.83-4.51); Lymphocyte % 21.9 % (19-41); Mean Corp Hgb Conc 35.1 g/dL (32-36); Mean Corpuscular Hgb 28.8 pg (27.0-32.0); Mean Corpuscular Volume 82.1 fL (80-94); Mean Platelet Vol. 9.6 fl (6.2-12.0); Monocyte# 0.49 X10^3/uL; Monocyte% 6.8 % (0-10); NRBC Flagged by Analyzer 0 % (0-5); Neutrophil # 4.78 X10^3/uL (2.7-7.7); Neutrophil % 66.5 % (47-70); Platelet Count 221 K/mm3 (150-450); RBC Distribution Width CV 13.9 % (11.6-14.6); RBC Distribution Width SD 40.8 fl (35.1-43.9); Red Blood Count 4.75 M/mm3 (4.6-6.2); White Blood Count 7.2 K/mm3 (4.4-11.0)
[2022-03-02 19:58] LABS: ALB/GLOB Ratio 1.1 RATIO (0.9-2.4); AST(SGOT) 8 U/L (15-37); Alanine Aminotransfer ALT/SGPT 15 U/L (16-61); Albumin, Serum 3.7 g/dL (3.2-5.0); Alkaline Phosphatase 69 U/L (45-117); Anion Gap 7 (5-15); BUN 14 mg/dL (7-18); BUN/Creat Ratio 14.9 RATIO (10-20); Calcium,Total 8.5 mg/dL (8.5-10.1); Chloride 108 mmol/L (98-107); Creatinine, Serum 0.94 mg/dL (0.70-1.30); EST Glomerular Filtration Rate 86 mL/min (>60); Est Glom Filt Rate - Afr Amer 105 mL/min (>60); Globulin 3.5 g/dL (2.2-4.2); Glucose 222 mg/dL (74-106); Potassium 3.5 mmol/L (3.5-5.1); Protein, Total 7.2 g/dL (6.4-8.2); Sodium Level 141 mmol/L (136-145)
== END 2022-03-02 20:28 | disposition home or self-care (01) ==
LOC: ED 19:12
PROVIDERS: Emergency Provider Emergency Medicine; Visit Provider Emergency Medicine
DX: R19.7 Diarrhea, unspecified (principal); I25.10 Atherosclerotic heart disease of native coronary artery without angina pectoris; I25.2 Old myocardial infarction; G47.30 Sleep apnea, unspecified
CPT/HCPCS: 80053; 85025; 99283; A4216

== ENCOUNTER 2022-03-19 17:30 | Observation (INO) | payer MEDICAID, SELFPAY ==
[2022-03-19 17:31] VITALS: BP 80/56; PULSE 82; RESP 14; TEMP 36.7; O2SAT 93; BMI 27.7
--- NOTE | 2022-03-19 17:39 | ED.RN ---
pt reports i hate the heat. it cold be why i feel like this.
--- NOTE | 2022-03-19 17:47 | RAD_ITS ---
INDICATION: Cough and weakness EXAMINATION/TECHNIQUE: X-RAY - portable upright AP chest x-ray COMPARISON: 11/09/2021 FINDINGS: LINES/DEVICES: None. LUNGS: Subsegmental atelectasis right lung base with mild elevation right hemidiaphragm. No consolidations or pleural effusions. MEDIASTINUM AND CARDIOVASCULAR STRUCTURES: Cardiac silhouette not enlarged. Central airways and mediastinal contour are unremarkable. BONES AND SOFT TISSUES: Unremarkable. RAD/Chest 1 View (Portable) IMPRESSION: No acute infiltrates. Electronically Signed: Fede Martin MD at 18:45 EDT ,
--- NOTE | 2022-03-19 17:47 | EKG12_ITS ---
Test Reason : WEAKNESS Blood Pressure : / mmHG Vent. Rate : 076 BPM Atrial Rate : 076 BPM P-R Int : 178 ms QRS Dur : 090 ms QT Int : 390 ms P-R-T Axes : 059 -60 032 degrees QTc Int : 438 ms Normal sinus rhythm Left anterior fascicular block Abnormal ECG Confirmed by MITALI TRACY, TABBY ([id number]), desk editor JADEN HERNANDEZ ([id number]) on 03/22/2022 10:07:27 A M Referred By: HERBERT Confirmed By:KRISTIE JAMSINE MD
--- NOTE | 2022-03-19 17:49 | EX.ED.DYSGE1 ---
HPI History of Present Illness Chief Complaint: Weakness Informant: patient Onset/Context/Timing Onset: Today Context: Gradual Onset Timing: Continuous Quality: weak, tired Location: all over Current Severity: Severe Maximum Severity: Severe Worsened by: nothing Relieved by: nothing Associated Symptoms Associated Symptoms: diarrhea x 2 today Narrative Narrative: Patient presenting for generalized weakness and fatigue, he has also had 2 bouts of diarrhea today. He states today is when this diarrhea started but he has a history of it chronically off and on and was seen here about 2.5 weeks ago for diarrhea. He denies any antibiotics since then or travel out of the area. No known history of C. difficile. When asked if he has had melena or blood he states he does not know because he does not check. He denies any abdominal or chest pain or pain elsewhere. When asked when this started, he states I had trouble sleeping overnight because of this referring to the fatigue. He has a chronic cough that is unchanged. He has some pain around his right eye without any vision changes or photophobia, he cannot tell me how long that is bothered him. Apparently has a history of alcohol abuse but has not been drinking recently. Patient also states he has an itchy rash in his legs, upper back, and his right side. Thinks it is poison elena and that he got while fishing, but on further questioning he states it has been there since December. [facility] Medical History Back pain due to injury Chronic pain COPD (chronic obstructive pulmonary disease) Current use of insulin Depression Diabetes Esophageal candidiasis High cholesterol History of stress test Hyperlipidemia Hypertension Injury of head and neck Myocardial infarct Non-smoker Restless legs Sleep apnea Home Medications metformin 500 mg PO BID 05/02/19 [History Last Taken 01/04/22] fluconazole [Diflucan] 200 mg PO DAILY #7 tab 01/07/22 [Rx Last Taken Unknown] glipizide 5 mg PO BID #60 tab 01/07/22 [Rx Last Taken Unknown] insulin glargine [Lantus Solostar U-100 Insulin] 10 unit SUBCUT BID 03/19/22 [History Last Taken Unknown] Allergy/AdvReac Type Severity Reaction Status Date / Time diphenhydramine HCl Allergy Rash Verified 03/19/22 17:31 [From Benadryl] Penicillins Allergy Rash Verified 03/19/22 17:31 venom-honey bee Allergy Swelling Verified 03/19/22 17:31 [bee venom (honey bee)] Surgical History History of coronary artery stent placement Social History household members: none Smoking Status: Never smoker substance use type: does not use ROS ROS ED Constitutional Constitutional ED: Reports fatigue and weakness; Denies chills or fever(s) Eyes Eyes: Denies change in vision or diplopia ENT ENT ED: Denies rhinorrhea or sore throat Cardiovascular Cardiovascular: Denies chest pain or palpitations Respiratory/Chest Respiratory/Chest: Reports cough; Denies dyspnea Gastrointestinal Gastrointestinal: Reports diarrhea; Denies abdominal pain, nausea or vomiting Genitourinary Genitourinary ED: Denies dysuria or hematuria Musculoskeletal Musculoskeletal: Denies back pain or neck pain Integumentary Reports rash; Denies abscess Neurologic Neurologic: Denies headache(s), paresthesias or weakness Psychiatric Psychiatric: Denies anxiety or suicidal thoughts EXAM Physical Exam Const Vital Signs: 03/19/22 17:31 03/19/22 17:35 03/19/22 17:47 Temperature 98.1 F Temperature Source Temporal Pulse Rate 82 Respiratory Rate 14 Respiratory Effort Normal Respiratory Pattern Normal Blood Pressure 80/56 L Blood Pressure Mean 64 Pulse Ox 93 Oxygen Delivery Method Room Air Room Air 03/19/22 21:29 Temperature Temperature Source Pulse Rate 78 Respiratory Rate 14 Respiratory Effort Respiratory Pattern Blood Pressure 130/74 H Blood Pressure Mean 92 Pulse Ox 97 Oxygen Delivery Method Room Air Positive well nourished and well developed Constitutional Narrative: Keenly alert, conversive in full sentences General Appearance ED: well developed and NAD HEENT Reports moist mucous membranes normocephalic and atraumatic Eyes PERRL and EOMs intact bilaterally Neck full ROM and supple Resp normal respiratory effort and clear to auscultation bilaterally Cardio regular rate, regular rhythm and no murmurs Rate: Negative for bradycardia or tachycardic GI non-tender and non-distended Auscultation: normoactive bowel sounds Palpation: soft Back/Spine no CVA tenderness General Back: other FROM Extremity normal to inspection General Extremety ED: Negative for edema, pulses abnormal or tenderness General Extremity: Negative for edema or pulses abnormal Neuro oriented x3, CN's II-XII intact bilaterally and no sensory deficits noted Sensorium / Orientation: awake and alert Motor Exam: strength 5/5 throughout Skin no wounds Skin Narrative: There are several different rashes; on his right flank, there is a nontender maculopapular blanching erythematous rash with some scabbing in the middle of it where it is more coalescent. No linear distributions. On his back, more concentrated in his upper back there are several scattered discrete lesions that are scabbed with erythema around them, no abscesses, none tender. On his distal shins bilaterally there are nonblanching nontender nonraised petechiae. MDM MDM MDM Narrative Medical decision making narrative: Initially patient's blood pressure was 80/56 and the rest of his vital signs were normal. He appears malaised but his exam otherwise is unremarkable. Septic work-up was obtained including blood cultures, however it is all normal except for total bilirubin of 1.1 which is just barely elevated, but over twice what his last bilirubin was. Given this and his history of alcohol use although he has not drank anything recently, obtained a CT of the abdomen/pelvis, there is nothing acute and no evidence of a radiographically visible mass. Chest x-ray on my interpretation 1 view was negative, radiology in agreement. His urine shows no evidence of infection. Cardiac work-up negative/unremarkable. In addition, he states he has COPD although he never smoked but was around a lot of people who did, so I obtained an ABG, it is normal and shows no hypercapnia. With IV fluid bolus, his pressure came up to 130/74, he still feels extremely malaised and weak but labs were not consistent with dehydration here, he was able to stand and walk but it had difficulty doing so. We will add a COVID and influenza rapid swab, and plan to admit him to observation. Lab Data Attestation: I reviewed the patient's lab results. Labs: Laboratory Results - last 24 hr 03/19/22 03/19/22 03/19/22 18:05 18:05 18:05 WBC 10.5 RBC 5.05 Hgb 14.5 Hct 42.1 MCV 83.4 MCH 28.7 MCHC 34.4 RDW Std Deviation 41.2 RDW Coeff of Manjinder 13.5 Plt Count 278 MPV 9.1 Immature Gran % (Auto) 0.500 Neut % (Auto) 74.4 H Lymph % (Auto) 14.9 L [place] % (Auto) 7.3 Eos % (Auto) 2.4 Baso % (Auto) 0.5 Absolute Neuts (auto) 7.8 H Absolute Lymphs (auto) 1.56 Nucleated RBC % 0 PT 14.1 INR 1.1 Sodium 141 Potassium 3.6 Chloride 106 Carbon Dioxide 28.0 Anion Gap 7 BUN 18 Creatinine 1.10 Estim Creat Clear Calc 88.88 Est GFR (MDRD) Af Amer 87 Est GFR (MDRD) Non-Af 72 BUN/Creatinine Ratio 16.4 Glucose 167 H Lactic Acid Calcium 9.0 Total Bilirubin 1.10 H AST 10 L ALT 14 L Alkaline Phosphatase 68 Troponin I High Sens < 3 L Total Protein 7.2 Albumin 3.7 Globulin 3.5 Albumin/Globulin Ratio 1.1 Urine Color Urine Clarity Urine pH Ur Specific [place] Urine Protein Urine Glucose (UA) Urine Ketones Urine Occult Blood Urine Nitrite Urine Bilirubin Urine Urobilinogen Ur Leukocyte Esterase Urine RBC Urine WBC Ur Squamous Epith Cells Urine Bacteria Urine Mucus 03/19/22 03/19/22 18:05 19:23 WBC RBC Hgb Hct MCV MCH MCHC RDW Std Deviation RDW Coeff of Manjinder Plt Count MPV Immature Gran % (Auto) Neut % (Auto) Lymph % (Auto) [place] % (Auto) Eos % (Auto) Baso % (Auto) Absolute Neuts (auto) Absolute Lymphs (auto) Nucleated RBC % PT INR Sodium Potassium Chloride Carbon Dioxide Anion Gap BUN Creatinine Estim Creat Clear Calc Est GFR (MDRD) Af Amer Est GFR (MDRD) Non-Af BUN/Creatinine Ratio Glucose Lactic Acid 1.2 Calcium Total Bilirubin AST ALT Alkaline Phosphatase Troponin I High Sens Total Protein Albumin Globulin Albumin/Globulin Ratio Urine Color Yellow Urine Clarity Clear Urine pH 5.0 Ur Specific [place] 1.020 Urine Protein 30 H Urine Glucose (UA) Normal Urine Ketones Negative Urine Occult Blood Negative Urine Nitrite Negative Urine Bilirubin Negative Urine Urobilinogen 1 H Ur Leukocyte Esterase 25 H Urine RBC 0 SEEN Urine WBC 0-5 SEEN Ur Squamous Epith Cells 0-5 SEEN Urine Bacteria 0 SEEN Urine Mucus 0 SEEN ABG Data ABG results: ABG 03/19/22 19:05 Specimen Type ART Sample Site L Radial pH 7.44 Bicarbonate Actual 25.7 Total CO2 27 Base Excess 2 O2 Saturation 92 L ABG pCO2 37.6 ABG pO2 62 L [place] Test Positive O2 Delivery Device Room Air Radiography Diagnostic Testing: Clinical Impression(s) from Imaging Studies Chest X-Ray 03/19/22 17:47 IMPRESSION: No acute infiltrates. Electronically Signed: Fede Martin MD at 18:45 EDT , Abdomen/Pelvis CT 03/19/22 19:41 IMPRESSION: No acute findings in the abdomen or pelvis. Electronically Signed: Fede Martin MD at 20:54 EDT , EKG Initial EKG: Attestation: I personally reviewed and interpreted this EKG as follows: Interpretation: Sinus Rhythm, No Acute Injury Pattern, RBBB (incomplete) and LAFB Prior EKG tracings: available for review Prior: Unchanged Discharge Plan Dx/Rx/DC Orders Clinical Impression: Transient hypotension, Generalized weakness, Acute diarrhea Disposition Disposition: Acute Care [facility]
[2022-03-19 18:17] LABS: Absolute Lymphocyte Count 1.56 X10^3/uL (0.83-4.51); Absolute Neutrophil Count 7.8 X10^3/uL (2.0-7.7); Basophil# 0.05 X10^3/uL; Basophil% 0.5 % (0-1); Eosinophil# 0.25 X10^3/uL; Eosinophils% 2.4 % (0-5); Hematocrit 42.1 % (40-54); Hemoglobin 14.5 g/dL (13.0-16.5); Lymphocyte # 1.56 X10^3/ul (0.83-4.51); Lymphocyte % 14.9 % (19-41); Mean Corp Hgb Conc 34.4 g/dL (32-36); Mean Corpuscular Hgb 28.7 pg (27.0-32.0); Mean Corpuscular Volume 83.4 fL (80-94); Mean Platelet Vol. 9.1 fl (6.2-12.0); Monocyte# 0.76 X10^3/uL; Monocyte% 7.3 % (0-10); NRBC Flagged by Analyzer 0 % (0-5); Neutrophil # 7.78 X10^3/uL (2.7-7.7); Neutrophil % 74.4 % (47-70); Platelet Count 278 K/mm3 (150-450); RBC Distribution Width CV 13.5 % (11.6-14.6); RBC Distribution Width SD 41.2 fl (35.1-43.9); Red Blood Count 5.05 M/mm3 (4.6-6.2); White Blood Count 10.5 K/mm3 (4.4-11.0)
[2022-03-19 18:27] LABS: International Normalized Ratio 1.1; Prothrombin Time (Protime)PT. 14.1 SECONDS (11.7-14.9)
[2022-03-19 18:37] LABS: ALB/GLOB Ratio 1.1 RATIO (0.9-2.4); AST(SGOT) 10 U/L (15-37); Alanine Aminotransfer ALT/SGPT 14 U/L (16-61); Albumin, Serum 3.7 g/dL (3.2-5.0); Alkaline Phosphatase 68 U/L (45-117); Anion Gap 7 (5-15); BUN 18 mg/dL (7-18); BUN/Creat Ratio 16.4 RATIO (10-20); Chloride 106 mmol/L (98-107); EST Glomerular Filtration Rate 72 mL/min (>60); Est Glom Filt Rate - Afr Amer 87 mL/min (>60); Estimated Creatinine Clearance 88.88 ml/min; Globulin 3.5 g/dL (2.2-4.2); Glucose 167 mg/dL (74-106); Potassium 3.6 mmol/L (3.5-5.1); Protein, Total 7.2 g/dL (6.4-8.2); Sodium Level 141 mmol/L (136-145); Troponin-I HS < 3 pg/mL (3.0-78.0)
[2022-03-19 19:00] LABS: Lactic Acid 1.2 mmol/L (0.4-1.9)
[2022-03-19 19:11] LABS: Allen Test Positive; Base Excess 2 mmol/L (-2 to +2); Bicarbonate 25.7 mmol/L (22-26); Blood Gas Specimen Type ART; O2 Delivery Device Room Air; PO2 62 mmHG (75-100); SITE L Radial; SO2 92 % (95-99); Total Carbon Dioxide 27 mmol/L; pCO2 37.6 mmHg (35-45); pH 7.44 (7.35-7.45)
[2022-03-19 19:30] LABS: Bacteria 0 SEEN /hpf (None Seen); Mucous, Urine 0 SEEN /hpf (<or=2+); Red Blood Cells-Urine 0 SEEN /hpf (0-5)
--- NOTE | 2022-03-19 19:41 | CT_ITS ---
INDICATION: weakness, hyperbilirubinemia EXAMINATION: CT ABDOMEN AND PELVIS WITH CONTRAST - CT Abdomen And Pelvis W/ Contrast Injection TECHNIQUE: Helically acquired images were obtained of the abdomen and pelvis following IV contrast. A radiation dose optimization technique was used for this scan. IV Contrast dosage and agent: 100 cc [id number] Oral contrast: None. COMPARISON: 01/04/2022 FINDINGS: LOWER CHEST: Bibasilar dependent changes. No cardiomegaly or pericardial effusion. LIVER: Homogeneous. No focal mass. GALLBLADDER AND BILIARY TREE: No calcified gallstones. No gallbladder distension or wall edema. No intra- or extrahepatic biliary ductal dilation. PANCREAS: No focal cystic or solid mass. SPLEEN: Normal size without focal cystic or solid mass. ADRENAL GLANDS: No nodules. KIDNEYS AND URETERS: Normal renal size and position. No hydronephrosis. PERITONEUM: No ascites or free air. BOWEL: Normal appendix. No stomach or bowel distension. No focal inflammatory bowel wall changes. LYMPH NODES: No enlarged mesenteric or retroperitoneal lymph nodes. VESSELS: Aorta is non-dilated. URINARY BLADDER: Unremarkable. REPRODUCTIVE ORGANS: No pelvic masses. BONES: No acute or aggressive abnormality. CT/Abdomen/Pelvis W IV Cont ONLY IMPRESSION: No acute findings in the abdomen or pelvis. Electronically Signed: Fede Martin MD at 20:54 EDT ,
[2022-03-19] MEDS: 0.9% Normal Saline 1,000 ML 999 ML IV (19:48)
[2022-03-19 19:49] LABS: Color, Urine Yellow (Yellow); Glucose, Dipstick Normal (Normal); Ketone-Dipstick Negative (Negative); Leukocyte Esterase-Dipstick 25 /ul (Negative); Nitrite-Dipstick Negative (Negative); Occult Blood-Urine Negative /ul (Negative); Protein-Dipstick 30 mg/dl (Negative); Urine Bilirubin Dipstick Negative (Negative); Urine Clarity Clear (Clear); Urine Urobilinogen 1 mg/dl (Normal)
[2022-03-19 19:56] LABS: Squamous Epithelial Cells - UA 0-5 SEEN /hpf (0-5); White Blood Cells 0-5 SEEN /hpf (0-5)
[2022-03-19 21:29] VITALS: BP 130/74; PULSE 78; RESP 14; O2SAT 97
--- NOTE | 2022-03-19 22:56 | HP.PCM.HOS_ITS ---
HPI - General General Date of Admission: 03/19/22 Date of Service: 03/19/22 Chief Complaint: Generalized weakness HPI Narrative JERALD OLIVER, is a 61 M who presents to the urgency room at [facility] with complaints of generalized weakness today. Patient complains of lethargy and fatigue. An extensive work-up was done in the emergency room including lab-patient CBC was unremarkable, chemistry panel was unremarkable exc ept for glucose of 167, patient had an arterial blood gas done on room air, SPO2 was 62, and his PCO2 was 37. pH was 7.44. Patient's chest x-ray was unremarkable, liver enzymes were remarkable for bilirubin of 1.1, patient underwent a CT of the abdomen which showed no acute findings. Patient was hypotensive when admitted to the emergency room, his blood pressure was 80/56, this improved to 130/74 with 1 L of fluid. At the time of this dictation, patient's influenza and COVID tests are pending. The etiology of the patient's weakness is unknown at this time, patient states that he is not opposed to staying in the hospital overnight, I gave him the choice of receiving another liter of fluid in the emergency room for being placed in the hospital overnight, he states he would rather not go home. Patient will be placed in observation status on [facility], he will have IV fluids administered and reevaluated tomorrow morning. [facility] Medical History Back pain due to injury Chronic pain COPD (chronic obstructive pulmonary disease) Current use of insulin Depression Diabetes Esophageal candidiasis High cholesterol History of stress test Hyperlipidemia Hypertension Injury of head and neck Myocardial infarct Non-smoker Restless legs Sleep apnea Home Medications metformin 500 mg PO BID 05/02/19 [History Last Taken 01/04/22] fluconazole [Diflucan] 200 mg PO DAILY #7 tab 01/07/22 [Rx Last Taken Unknown] glipizide 5 mg PO BID #60 tab 01/07/22 [Rx Last Taken Unknown] insulin glargine [Lantus Solostar U-100 Insulin] 10 unit SUBCUT BID 03/19/22 [History Last Taken Unknown] Allergy/AdvReac Type Severity Reaction Status Date / Time diphenhydramine HCl Allergy Rash Verified 03/19/22 17:31 [From Benadryl] Penicillins Allergy Rash Verified 03/19/22 17:31 venom-honey bee Allergy Swelling Verified 03/19/22 17:31 [bee venom (honey bee)] Surgical History History of coronary artery stent placement Social History household members: none Smoking Status: Never smoker substance use type: does not use ROS Constitutional Constitutional: Reports fatigue, malaise and weakness; Denies anorexia, change in weight, fever(s) or night sweats Eyes Eyes: Denies blurry vision, change in vision, discharge from eye(s) or eye pain ENT HEENT: Denies abnormal hearing, dysphagia or ear pain Cardiovascular Cardiovascular: Denies chest pain, claudication, dyspnea on exertion, edema, lightheadedness or palpitations Respiratory/Chest Respiratory/Chest: Reports cough and shortness of breath with exertion; Denies hemoptysis or shortness of breath at rest Gastrointestinal Gastrointestinal: Denies abdominal pain, constipation, diarrhea, hematemesis, hematochezia, melena, nausea or vomiting Genitourinary Genitourinary: Denies dysuria, hematuria, urinary frequency, urinary hesitancy, urinary incontinence or urinary urgency Musculoskeletal Musculoskeletal: Denies back pain, joint pain, joint stiffness, joint swelling, myalgias or neck pain Neurologic Neurologic: Denies abnormal gait, abnormal speech, dizziness, focal weakness, headache(s), loss of vision, numbness, other visual disturbances, paresthesias, syncope or tingling Psychiatric Psychiatric: Denies anxiety, cognitive impairment, depression, irritability, mood swings or suicidal ideation Endocrine Endocrinology: Denies change in body appearance, cold intolerance, excessive sweating, heat intolerance, polydipsia or polyuria Hematologic/Lymphatic Hematologic/Lymphatic: Denies none, anemia, easy bleeding, easy bruising or lymphadenopathy Allergic/Immunologic Allergic/Immunologic: Denies rhinitis, urticaria, eczemia or asthma Vital Signs Vital Signs Vital Signs: 03/19/22 17:31 03/19/22 17:35 03/19/22 17:47 Temperature 98.1 F Temperature Source Temporal Pulse Rate 82 Respiratory Rate 14 Respiratory Effort Normal Respiratory Pattern Normal Blood Pressure 80/56 L Blood Pressure Mean 64 Pulse Ox 93 Oxygen Delivery Method Room Air Room Air 03/19/22 21:29 Temperature Temperature Source Pulse Rate 78 Respiratory Rate 14 Respiratory Effort Respiratory Pattern Blood Pressure 130/74 H Blood Pressure Mean 92 Pulse Ox 97 Oxygen Delivery Method Room Air Weight Weight: 106.141 kg Body Mass Index (BMI) 27.7 Physical Exam Const alert, oriented x3 and no apparent distress Constitutional Narrative: Patient appears older than his stated age General Appearance: cooperative, well kempt and well developed Orientation / Consciousness: awake, oriented to person, oriented to place and oriented to time HEENT normocephalic, head/scalp atraumatic and moist oral mucous membranes Eyes PERRL, EOMs intact bilaterally and conjunctivae normal Neck nuchal rigidity, supple, no JVD, thyroid normal and no carotid bruits General: trachea midline Resp normal respiratory effort, no retractions, no use of accessory muscles and clear to auscultation bilaterally Auscultation: Negative for rales, rhonchi or wheezes Cardio regular rate, regular rhythm, S1 normal heart sound, S2 normal heart sound, no murmurs, no rub and no gallops GI normal to inspection, nondistended, normoactive bowel sounds, soft to palpation, non-tender and non-distended Extremity no clubbing, cyanosis or edema Skin Skin Narrative: Patient has multiple small eschared areas over his back and lower trunk, these appear to be from picking General Skin Exam: no breakdown Neuro oriented x3, CN's II-XII intact bilaterally, no focal motor deficits and no sensory deficits noted Sensorium / Orientation: awake and alert Speech: speech normal Psych Psych Narrative: Patient has a flat affect Results Lab / Micro Data Result Diagrams: 03/19/22 18:05 03/19/22 18:05 Labs: Laboratory Results - last 24 hr 03/19/22 18:05: WBC 10.5, RBC 5.05, Hgb 14.5, Hct 42.1, MCV 83.4, MCH 28.7, MCHC 34.4, RDW Std Deviation 41.2, RDW Coeff of Manjinder 13.5, Plt Count 278, MPV 9.1, Immature Gran % (Auto) 0.500, Neut % (Auto) 74.4 H, Lymph % (Auto) 14.9 L, [place] % (Auto) 7.3, Eos % (Auto) 2.4, Baso % (Auto) 0.5, Absolute Neuts (auto) 7.8 H, Absolute Lymphs (auto) 1.56, Nucleated RBC % 0 03/19/22 18:05: PT 14.1, INR 1.1 03/19/22 18:05: Sodium 141, Potassium 3.6, Chloride 106, Carbon Dioxide 28.0, Anion Gap 7, BUN 18, Creatinine 1.10, Estim Creat Clear Calc 88.88, Est GFR (MDRD) Af Amer 87, Est GFR (MDRD) Non-Af 72, BUN/Creatinine Ratio 16.4, Glucose 167 H, Calcium 9.0, Total Bilirubin 1.10 H, AST 10 L, ALT 14 L, Alkaline Phosphatase 68, Troponin I High Sens < 3 L, Total Protein 7.2, Albumin 3.7, Globulin 3.5, Albumin/Globulin Ratio 1.1 03/19/22 18:05: Lactic Acid 1.2 03/19/22 19:23: Urine Color Yellow, Urine Clarity Clear, Urine pH 5.0, Ur Specific Rector 1.020, Urine Protein 30 H, Urine Glucose (UA) Normal, Urine Ketones Negative, Urine Occult Blood Negative, Urine Nitrite Negative, Urine Bilirubin Negative, Urine Urobilinogen 1 H, Ur Leukocyte Esterase 25 H, Urine RBC 0 SEEN, Urine WBC 0-5 SEEN, Ur Squamous Epith Cells 0-5 SEEN, Urine Bacteria 0 SEEN, Urine Mucus 0 SEEN ABG Data ABG results: ABG 03/19/22 19:05 Specimen Type ART Sample Site L Radial pH 7.44 Bicarbonate Actual 25.7 Total CO2 27 Base Excess 2 O2 Saturation 92 L ABG pCO2 37.6 ABG pO2 62 L [place] Test Positive O2 Delivery Device Room Air Radiology Impression Chest X-Ray 03/19/22 17:47 IMPRESSION: No acute infiltrates. Electronically Signed: Fede Martin MD at 18:45 EDT Reading Location ID and State: [facility] / MD Tel , Service support , Abdomen/Pelvis CT 03/19/22 19:41 IMPRESSION: No acute findings in the abdomen or pelvis. Electronically Signed: Fede Martin MD at 20:54 EDT Reading Location ID and State: [facility] / [place] Tel , Service support , Assessment & Plan Assessment/Plan (1) Transient hypotension: PLAN: 1. Generalized weakness-etiology unclear, patient will be placed in observation status on MedSurg, IV fluids will be administered he will be reevaluated tomorrow, patient will be seen by PT tomorrow #2 hypotension-etiology unclear at this point, this seems to have corrected with fluid administration, blood pressure will be monitored #3 type 2 diabetes-patient states that he is no longer going to see his PCP (Dr. Fernandez) he states he is not going to be following up with any physician in the near future. I advised him that he should find a new PCP #4 probable undiagnosed COPD-patient's PO2 was marginal on room air, he told the emergency room physician fatimah that he thought he might of been diagnosed with COPD in the past, however the patient stated that he never smoked but he was around people that smoked. I will obtain a D-dimer on the patient for completeness Patient's COVID and influenza tests are pending at the time of this dictation. Charges/Coding Visit Charges OBSV E&M: 69973 Initial observation care L3
[2022-03-19 23:08] VITALS: BP 126/89; PULSE 98; RESP 14; TEMP 36.7; O2SAT 97
[2022-03-19 23:33] VITALS: BP 143/81; PULSE 83; RESP 16; TEMP 36.6; O2SAT 98
[2022-03-19 23:34] VITALS: BMI 25.7
[2022-03-20] MEDS: 0.9% Normal Saline 1,000 ML 125 ML IV ×2 (00:05→06:40)
[2022-03-20] MEDS: 0.9% Saline Lock 10 ML Syringe IV (00:05)
[2022-03-20 05:09] VITALS: BP 129/93; PULSE 80; RESP 18; TEMP 36.6; O2SAT 97
[2022-03-20 07:55] LABS: D-Dimer Quantitative (DVT/PE) 0.75 FEU/ug/m (0.27-0.49)
[2022-03-20 08:20] VITALS: O2SAT 95
[2022-03-20] MEDS: glipiZIDE 5 MG Tablet PO (08:33)
[2022-03-20] MEDS: Insulin Glargine-YFGN 100 UNIT/ML Pen 10 UNIT SC (08:33)
[2022-03-20 08:35] LABS: Bedside Glucose 153 mg/dL (74-106)
[2022-03-20 08:38] VITALS: BP 119/72; PULSE 72; RESP 16; TEMP 37.7; O2SAT 99
--- NOTE | 2022-03-20 11:23 | PCM.DC.SUM ---
Providers Date of Admission: 03/19/22 Primary Care Physician: Nayla Primary Care Phys Reason For Visit: WEAKNESS Diagnosis Discharge Diagnosis (1) Transient hypotension: Status: Acute Code(s): I95.9 - Hypotension, unspecified Medications at Discharge Home Medications metformin 500 mg PO BID 05/02/19 fluconazole [Diflucan] 200 mg PO DAILY 03/19/22 glipizide 5 mg PO BID 03/19/22 insulin glargine [Lantus Solostar U-100 Insulin] 10 unit SUBCUT BID 03/19/22 Hospital Course Operations None Procedures None Summary of Care Provided Minutes Spent on Discharge: 45 Hospital Course: Patient is a 61 y/o with a PMH as outlined was admitted via the ED on 03/19/2022 with a complaint of generalized weakness as well as fatigue. He had no other complaints and denied any shortness of breath, cough, chest pain, palpitations, dizziness, nausea, vomiting or diarrhea. Review of systems otherwise negative. On admission he was hypotensive with blood pressure of 80/56 but this improved to 132/74 with hydration of fluids. Influenza and COVID test done were negative. He was therefore admitted to be managed for general debility and weakness of unclear etiology. CBC was unremarkable and BMP was also unremarkable. Liver profile was largely unremarkable as well. Patient felt much better by the next day and had no complaints. He was able to eat a healthy breakfast and did well with physical therapy. Urinalysis showed no evidence of UTI. He remained stable and was discharged home on 03/20/2022. He is to follow-up with his primary care doctor within 1 to 2 weeks. Patient seen and examined prior to discharge. He had no active complaints and had an uneventful night. He felt well and review of systems otherwise negative. Labs and vitals reviewed. Home medication reviewed and reconciled. Physical Exam Const alert, oriented x3 and no apparent distress General Appearance: cooperative, comfortable and well kempt Orientation / Consciousness: awake Exam Limitations: no limitations HEENT normocephalic, head/scalp atraumatic, hearing grossly normal bilaterally and moist oral mucous membranes Eyes PERRL and EOMs intact bilaterally Neck no lymphadenopathy and supple Resp normal respiratory effort, no retractions, no use of accessory muscles and clear to auscultation bilaterally Cardio regular rate, regular rhythm, S1 normal heart sound, S2 normal heart sound and no murmurs GI normal to inspection, nondistended, normoactive bowel sounds, soft to palpation, non-tender and non-distended Extremity normal to inspection, full ROM and no clubbing, cyanosis or edema Skin Skin Narrative: has papular rash over upper back and abdomen which he ascribes to bedbugs. Neuro oriented x3, CN's II-XII intact bilaterally and moves all extremities Sensorium / Orientation: awake and alert Psych affect normal Weight / BMI Weight Weight: 217 lb 6.012 oz Body Mass Index (BMI) 25.7 ABG / Lab / Microbiology Data Result Diagrams: 03/19/22 18:05 03/19/22 18:05 Laboratory: Laboratory Results - last 24 hr 03/19/22 18:05: WBC 10.5, RBC 5.05, Hgb 14.5, Hct 42.1, MCV 83.4, MCH 28.7, MCHC 34.4, RDW Std Deviation 41.2, RDW Coeff of Manjinder 13.5, Plt Count 278, MPV 9.1, Immature Gran % (Auto) 0.500, Neut % (Auto) 74.4 H, Lymph % (Auto) 14.9 L, [place] % (Auto) 7.3, Eos % (Auto) 2.4, Baso % (Auto) 0.5, Absolute Neuts (auto) 7.8 H, Absolute Lymphs (auto) 1.56, Nucleated RBC % 0 03/19/22 18:05: PT 14.1, INR 1.1 03/19/22 18:05: Sodium 141, Potassium 3.6, Chloride 106, Carbon Dioxide 28.0, Anion Gap 7, BUN 18, Creatinine 1.10, Estim Creat Clear Calc 88.88, Est GFR (MDRD) Af Amer 87, Est GFR (MDRD) Non-Af 72, BUN/Creatinine Ratio 16.4, Glucose 167 H, Calcium 9.0, Total Bilirubin 1.10 H, AST 10 L, ALT 14 L, Alkaline Phosphatase 68, Troponin I High Sens < 3 L, Total Protein 7.2, Albumin 3.7, Globulin 3.5, Albumin/Globulin Ratio 1.1 03/19/22 18:05: Lactic Acid 1.2 03/19/22 19:23: Urine Color Yellow, Urine Clarity Clear, Urine pH 5.0, Ur Specific Jarratt 1.020, Urine Protein 30 H, Urine Glucose (UA) Normal, Urine Ketones Negative, Urine Occult Blood Negative, Urine Nitrite Negative, Urine Bilirubin Negative, Urine Urobilinogen 1 H, Ur Leukocyte Esterase 25 H, Urine RBC 0 SEEN, Urine WBC 0-5 SEEN, Ur Squamous Epith Cells 0-5 SEEN, Urine Bacteria 0 SEEN, Urine Mucus 0 SEEN 03/20/22 07:19: D-Dimer Quant (PE/DVT) 0.75 H* 03/20/22 08:29: POC Glucose 153 H Microbiology: Microbiology 03/19/22 22:24 Nasal Secretion SARS-CoV-2 & FLU Antigen (Rapid) - Final ABG: ABG 03/19/22 19:05 Specimen Type ART Sample Site L Radial pH 7.44 Bicarbonate Actual 25.7 Total CO2 27 Base Excess 2 O2 Saturation 92 L ABG pCO2 37.6 ABG pO2 62 L [place] Test Positive O2 Delivery Device Room Air Radiography Diagnostic Testing: Radiology Impression Chest X-Ray 03/19/22 17:47 IMPRESSION: No acute infiltrates. Electronically Signed: Fede Martin MD at 18:45 EDT , Abdomen/Pelvis CT 03/19/22 19:41 IMPRESSION: No acute findings in the abdomen or pelvis. Electronically Signed: Fede Martin MD at 20:54 EDT , D/C Instructions Discharge Diet: Low fat / Low cholesterol Discharge Activity: Return to Normal Activity Weight Bearing Status: Weight bearing as tolerated Call your doctor if you observe: Fever of 101 or Higher, Shortness of breath, Swelling in the ankles and Increased palpitations (irregular heartbeat) Meaningful Use Info Meaningful Use Diagnoses (Choose all that apply): None applicable Discharge Plan Admission Admit Date/Time: 03/19/22 23:51 Primary Reason for Your Visit: debility and weakness Attending Provider: Vicky Mckeon Primary Care Provider: Care Physician,No Primary Consulting Providers: Linden Jurado Instructions Patient Instructions: ED Fall Dizziness Weakn Balance Discharge Orders/Prescriptions Prescriptions: Continued metformin 500 MG tablet 500 mg PO BID RF: 0 insulin glargine [Lantus Solostar U-100 Insulin] 100 unit/mL (3 mL) Insulin Pen 10 unit SUBCUT BID RF: 0 fluconazole [Diflucan] 200 mg tablet 200 mg PO DAILY RF: 0 glipizide 5 mg tablet 5 mg PO BID RF: 0 Referrals / Follow Up: Titus Lee MD [STAFF PHYSICIAN] - Within 2 Weeks (see to establish PCP care) Care Physician,No Primary [Primary Care Provider] - Within 2 Weeks Disposition Disposition (needs filled in before D/C Order can be placed): Home, Self Care Charges/Coding Visit Charges OBSV E&M: 65002 Observation care discharge
--- NOTE | 2022-03-20 11:40 | CASEMGMT ---
LIBERTY MANN NOTE: Pt admitted for weakness. Noted pt declined therapy today, stating he is back @ his baseline. LIBERTY MANN to room to discuss discharge planning. Pt states he still feels a little weak, but that it is much improved since yesterday and states he does feel like he is close to his baseline. He states he feels steady when up ambulating and has been up w/out assistance or device today. He confirms he lives alone and feels safe discharging home today. He denies having any discharge/home-going needs or concerns. He states his bro-in-law works until 2 PM and can come pick him up after then to take him home. Helene CARRION RN, CM
[2022-03-20 14:19] VITALS: BP 156/97; PULSE 70; RESP 16; TEMP 36.6; O2SAT 97
[2022-03-20 14:23] VITALS: TEMP 37.2
[2022-03-20] MEDS: Acetaminophen 325 MG Tablet 650 MG PO (14:27)
== END 2022-03-20 15:00 | disposition home or self-care (01) ==
LOC: ED 22:26 → MS3 23:56
PROVIDERS: Admitting Provider Internal Medicine; Emergency Provider Emergency Medicine; Visit Provider Student in an Organized Health Care Education/Training Program
DX: I95.9 Hypotension, unspecified (principal); J44.9 Chronic obstructive pulmonary disease, unspecified; E11.9 Type 2 diabetes mellitus without complications; Z79.4 Long term (current) use of insulin; R53.1 Weakness; R19.7 Diarrhea, unspecified; Z20.822 Contact with and (suspected) exposure to COVID-19; E78.5 Hyperlipidemia, unspecified; R53.81 Other malaise; H57.11 Ocular pain, right eye; I10 Essential (primary) hypertension; R53.83 Other fatigue; Z79.899 Other long term (current) drug therapy; G47.33 Obstructive sleep apnea (adult) (pediatric); G25.81 Restless legs syndrome
CPT/HCPCS: 36415; 36600; 71045; 74177; 80053; 81001; 82803; 82962; 83605; 84484; 85025; 85379; 85610; 87040; 87086; 87428; 93005; 96360; 96361; 97802; 99218; 99285; J7030; J7040; Q9967; A4216; G0378

== ENCOUNTER 2022-04-26 14:05 | Emergency (ER) | payer MEDICAID, SELFPAY ==
[2022-04-26 14:06] VITALS: BP 117/74; PULSE 71; RESP 18; TEMP 36.6; O2SAT 99; BMI 28.9
[2022-04-26 14:33] VITALS: BP 117/74; PULSE 71; RESP 18; TEMP 36.7; O2SAT 99
[2022-04-26 14:36] LABS: Absolute Lymphocyte Count 1.44 X10^3/uL (0.83-4.51); Absolute Neutrophil Count 4.4 X10^3/uL (2.0-7.7); Basophil# 0.02 X10^3/uL; Basophil% 0.3 % (0-1); Eosinophil# 0.29 X10^3/uL; Eosinophils% 4.3 % (0-5); Hematocrit 40.1 % (40-54); Hemoglobin 14.1 g/dL (13.0-16.5); Lymphocyte # 1.44 X10^3/ul (0.83-4.51); Lymphocyte % 21.5 % (19-41); Mean Corp Hgb Conc 35.2 g/dL (32-36); Mean Corpuscular Hgb 28.4 pg (27.0-32.0); Mean Corpuscular Volume 80.7 fL (80-94); Mean Platelet Vol. 9.1 fl (6.2-12.0); Monocyte# 0.49 X10^3/uL; Monocyte% 7.3 % (0-10); NRBC Flagged by Analyzer 0 % (0-5); Neutrophil # 4.43 X10^3/uL (2.7-7.7); Neutrophil % 66.3 % (47-70); Platelet Count 191 K/mm3 (150-450); RBC Distribution Width CV 13.4 % (11.6-14.6); RBC Distribution Width SD 38.6 fl (35.1-43.9); Red Blood Count 4.97 M/mm3 (4.6-6.2); White Blood Count 6.7 K/mm3 (4.4-11.0)
[2022-04-26 14:42] LABS: Bacteria 0 SEEN /hpf (None Seen); Mucous, Urine 0 SEEN /hpf (<or=2+); Red Blood Cells-Urine 0 SEEN /hpf (0-5); Squamous Epithelial Cells - UA 0 SEEN /hpf (0-5); White Blood Cells 0 SEEN /hpf (0-5)
[2022-04-26 14:44] LABS: Color, Urine Yellow (Yellow); Glucose, Dipstick Normal (Normal); Ketone-Dipstick Negative (Negative); Leukocyte Esterase-Dipstick Negative /ul (Negative); Nitrite-Dipstick Negative (Negative); Occult Blood-Urine Negative /ul (Negative); Protein-Dipstick Negative (Negative); Urine Bilirubin Dipstick Negative (Negative); Urine Clarity Clear (Clear); Urine Urobilinogen Normal (Normal)
[2022-04-26 14:49] LABS: Anion Gap 5 (5-15); BUN 9 mg/dL (7-18); BUN/Creat Ratio 10.9 RATIO (10-20); Calcium,Total 8.8 mg/dL (8.5-10.1); Chloride 109 mmol/L (98-107); Creatinine, Serum 0.83 mg/dL (0.70-1.30); EST Glomerular Filtration Rate 100 mL/min (>60); Est Glom Filt Rate - Afr Amer 121 mL/min (>60); Glucose 121 mg/dL (74-106); Potassium 3.6 mmol/L (3.5-5.1); Sodium Level 142 mmol/L (136-145)
--- NOTE | 2022-04-26 15:04 | EKG12_ITS ---
Test Reason : ABDOMINAL PAIN Blood Pressure : / mmHG Vent. Rate : 071 BPM Atrial Rate : 071 BPM P-R Int : 198 ms QRS Dur : 100 ms QT Int : 414 ms P-R-T Axes : 057 -52 017 degrees QTc Int : 449 ms Normal sinus rhythm Left anterior fascicular block Abnormal ECG Confirmed by CHRISTOPH TRACY, NAVEED ([id number]), news editor JADEN HERNANDEZ ([id number]) on 04/28/2022 8:47:06 AM Referred By: ROHIT Confirmed By:NAVEED HAWTHORNE MD
--- NOTE | 2022-04-26 15:06 | EX.ED.DYSGE1 ---
HPI History of Present Illness Chief Complaint: Abd Pain Informant: patient Narrative Narrative: Patient tells me his very different from the nursing notes. When I ask him what got him in here today. He looks at me taps his abdomen and then closes his eyes. He does not speak. It takes quite a bit of questioning to get the story from him. I finally encouraged him to use words and we actually get what I think is a good story. Patient tells me he felt fine this morning when he woke up. He went out fishing. He did not eat anything today. He did not drink anything today. He did not check his sugar today. He was out in the heat fishing and he started to feel nauseated and just felt weak so he came in here. He is feeling better already being in here. He denies ever having chest pain or shortness of breath. He denies ever having any abdominal pain to me. He has not vomited. He does have some chronic diarrhea. This is not new or different. He was told that it is due to his medications. He did take his diabetes meds. He has not had fevers or chills. No other complaints. [facility] Medical History Back pain due to injury Chronic pain COPD (chronic obstructive pulmonary disease) Current use of insulin Depression Diabetes Esophageal candidiasis High cholesterol History of stress test Hyperlipidemia Hypertension Injury of head and neck Myocardial infarct Non-smoker Restless legs Sleep apnea Home Medications metformin 500 mg tablet,extended release 24 hr 500 mg PO BID diabetes 05/02/19 [History Last Taken 03/18/22] fluconazole 200 mg tablet (Diflucan) 200 mg PO DAILY antibiotic 03/19/22 [History Last Taken 03/18/22] glipizide 5 mg tablet 5 mg PO BID diabetes 03/19/22 [History Last Taken 03/18/22] insulin glargine 100 unit/mL (3 mL) subcutaneous pen (Lantus Solostar U-100 Insulin) 10 unit subcut BID diabetes 03/19/22 [History Last Taken 03/18/22] ondansetron 4 mg disintegrating tablet 4 mg PO Q8H PRN nausea and vomiting #10 tabs 04/26/22 [Rx Last Taken Unknown] Allergy/AdvReac Type Severity Reaction Status Date / Time diphenhydramine HCl Allergy Rash Verified 04/26/22 14:07 [From Benadryl] Penicillins Allergy Rash Verified 04/26/22 14:07 venom-honey bee Allergy Swelling Verified 04/26/22 14:07 [bee venom (honey bee)] Surgical History History of coronary artery stent placement Social History household members: none Smoking Status: Never smoker substance use type: does not use ROS ROS ED Constitutional Constitutional ED: Denies fever(s) or subjective Eyes Eyes: Denies change in vision ENT ENT ED: Denies rhinorrhea or sore throat Cardiovascular Cardiovascular: Denies chest pain or palpitations Respiratory/Chest Respiratory/Chest: Denies cough or dyspnea Gastrointestinal Gastrointestinal: Reports diarrhea and nausea; Denies abdominal pain, constipation, melena or vomiting Genitourinary Genitourinary ED: Denies dysuria Musculoskeletal Musculoskeletal: Denies arthralgias Integumentary Denies rash Neurologic Neurologic: Denies headache(s) Endocrine Endocrinology: Denies polydipsia or polyuria Hematologic/Lymphatic Hematologic/Lymphatic: Denies easy bleeding or easy bruising Allergic/Immunologic Allergic/Immunologic ED: Denies urticaria EXAM Physical Exam Const Vital Signs: 04/26/22 14:06 04/26/22 14:33 Temperature 98 F 98.0 F Temperature Source Temporal Temporal Pulse Rate 71 71 Respiratory Rate 18 18 Blood Pressure 117/74 117/74 Blood Pressure Mean 88 88 Pulse Ox 99 99 Oxygen Delivery Method Room Air Room Air Positive well nourished and well developed Constitutional Narrative: Patient is resting when I walk in the room. He is aroused with voice and gentle shaking. General Appearance ED: well developed and NAD; Negative for pallor HEENT Reports dry mucous membranes HEENT Narrative: Mildly dry. Negative for trauma or tenderness Mouth ED: Yes dry mucous membranes Mouth: dry mucous membranes Eyes EOMs intact bilaterally Neck no lymphadenopathy Chest Wall inspection of chest normal Resp normal respiratory effort and clear to auscultation bilaterally Cardio regular rate, regular rhythm and no murmurs GI normal to inspection, nondistended, normoactive bowel sounds, non-tender and non-distended Auscultation: normoactive bowel sounds Back/Spine no CVA tenderness Extremity normal to inspection General Extremety ED: Negative for edema or tenderness General Extremity: Negative for edema Neuro oriented x3 Psych mental status grossly normal Skin no rashes or lesions noted and no wounds Skin Narrative: Not diaphoretic. Not pale. General Skin Exam: Negative for jaundice or pallor MDM MDM MDM Narrative Medical decision making narrative: Patient was rechecked. I asked him how he is feeling. He states I feel like shit. I asked him why he states his stomach is still hurting. I explained that he had told me that his stomach did not hurt before. I actually asked him multiple times. He told me he was just nauseated because he had not eaten and was out in the heat. He states it is now hurting. He cannot tell me where his stomach hurts. His stomach is still benign to exam. With a very difficult informant, complaining of abdominal pain, we will check a CT of his abdomen. CBC shows no acute process. Electrolytes are overall unremarkable. Troponin is negative. Urine is clean. Patient is now rechecked. His CT shows no marked acute abnormality. He is resting quietly. His abdomen is benign. I will get him home with a prescription for Zofran. I have encouraged him to eat and drink regularly. He should avoid staying out of the hot sun all day without eating and drinking. We discussed reasons to return. Lab Data Attestation: I reviewed the patient's lab results. Labs: Laboratory Results - last 24 hr 04/26/22 04/26/22 04/26/22 14:23 14:23 14:34 WBC 6.7 RBC 4.97 Hgb 14.1 Hct 40.1 MCV 80.7 MCH 28.4 MCHC 35.2 RDW Std Deviation 38.6 RDW Coeff of Manjinder 13.4 Plt Count 191 MPV 9.1 Immature Gran % (Auto) 0.300 Neut % (Auto) 66.3 Lymph % (Auto) 21.5 Toombs % (Auto) 7.3 Eos % (Auto) 4.3 Baso % (Auto) 0.3 Absolute Neuts (auto) 4.4 Absolute Lymphs (auto) 1.44 Nucleated RBC % 0 Sodium 142 Potassium 3.6 Chloride 109 H Carbon Dioxide 28.0 Anion Gap 5 BUN 9 Creatinine 0.83 Estim Creat Clear Calc 116.30 Est GFR (MDRD) Af Amer 121 Est GFR (MDRD) Non-Af 100 BUN/Creatinine Ratio 10.9 Glucose 121 H Calcium 8.8 Troponin I High Sens 3 Urine Color Urine Clarity Urine pH Ur Specific [place] Urine Protein Urine Glucose (UA) Urine Ketones Urine Occult Blood Urine Nitrite Urine Bilirubin Urine Urobilinogen Ur Leukocyte Esterase Urine RBC Urine WBC Ur Squamous Epith Cells Urine Bacteria Urine Mucus 04/26/22 14:36 WBC RBC Hgb Hct MCV MCH MCHC RDW Std Deviation RDW Coeff of Manjinder Plt Count MPV Immature Gran % (Auto) Neut % (Auto) Lymph % (Auto) [place] % (Auto) Eos % (Auto) Baso % (Auto) Absolute Neuts (auto) Absolute Lymphs (auto) Nucleated RBC % Sodium Potassium Chloride Carbon Dioxide Anion Gap BUN Creatinine Estim Creat Clear Calc Est GFR (MDRD) Af Amer Est GFR (MDRD) Non-Af BUN/Creatinine Ratio Glucose Calcium Troponin I High Sens Urine Color Yellow Urine Clarity Clear Urine pH 6.0 Ur Specific [place] 1.010 Urine Protein Negative Urine Glucose (UA) Normal Urine Ketones Negative Urine Occult Blood Negative Urine Nitrite Negative Urine Bilirubin Negative Urine Urobilinogen Normal Ur Leukocyte Esterase Negative Urine RBC 0 SEEN Urine WBC 0 SEEN Ur Squamous Epith Cells 0 SEEN Urine Bacteria 0 SEEN Urine Mucus 0 SEEN Radiography Diagnostic Testing: Clinical Impression(s) from Imaging Studies Abdomen/Pelvis CT 04/26/22 16:43 IMPRESSION: (NOT LISTED IN ORDER OF SIGNIFICANCE) There are atherosclerotic calcifications of visualized coronary arteries. There is bilateral neural foraminal stenosis at L4-5 and L5-S1. Other findings as above. Electronically Signed: Juan Francisco Anthony MD at 17:20 EDT , Discharge Plan Triage Chief Complaint: Abd Pain ED Provider: Domenico Duggan Dx/Rx/DC Orders Clinical Impression: Heat exposure, Nausea Instructions: Heat-Related Illness Prevention Ch Prescriptions: New ondansetron 4 mg tablet,disintegrating 4 mg PO Q8H PRN (Reason: nausea and vomiting) Qty: 10 0RF No Action metformin 500 MG tablet 500 mg PO BID Label Comments: diabetes insulin glargine [Lantus Solostar U-100 Insulin] 100 unit/mL (3 mL) Insulin Pen 10 unit SUBCUT BID fluconazole [Diflucan] 200 mg tablet 200 mg PO DAILY glipizide 5 mg tablet 5 mg PO BID Rx Instructions: Hold if glucose less than 130 mg/dl Primary Care Provider: Care Physician,No Primary Referrals: Quan Wolf MD [STAFF PHYSICIAN] - 3-5 Days Care Physician,No Primary [Primary Care Provider] - Disposition Disposition: Home, Self Care
[2022-04-26] MEDS: 0.9% Normal Saline 1,000 ML 999 ML IV (15:14)
[2022-04-26] MEDS: Ondansetron 4 MG/2 ML Vial IV (15:14)
[2022-04-26 15:35] LABS: Troponin-I HS 3 pg/mL (3.0-78.0)
--- NOTE | 2022-04-26 16:43 | CT_ITS ---
STUDY: CT Abdomen And Pelvis W/O Contrast Injection 04/26/2022 5:17 PM REASON FOR EXAM: Male, 62 years old. ABDOMINAL PAIN pain Technologist Notes ABD PAIN/WEAKNESS TECHNIQUE: Transaxial images were obtained without oral contrast, and without intravenous contrast. Individualized dose optimization techniques were used for this CT. COMPARISON: Mar 19 2022 8:11pm . FINDINGS: There are atherosclerotic calcifications of visualized coronary arteries. The visualized portions of the heart are within normal limits. Unremarkable liver. Unremarkable gallbladder and extrahepatic biliary system. Unremarkable spleen. Unremarkable pancreas. Unremarkable bilateral adrenal glands. No acute findings of the right kidney. No acute findings of the left kidney. Unremarkable visualized stomach. Unremarkable small intestine. Unremarkable colon. There is non-visualization of the appendix. There are calcifications of the abdominal aorta. This is consistent for atherosclerotic disease. There is no abdominal aortic aneurysm. Unremarkable inferior vena cava. Subcentimeter mesenteric lymph nodes. Unremarkable urinary bladder. There is an umbilical hernia containing fat. There are bilateral inguinal hernias containing fat. There is no bowel involvement. There is no incarceration. There is no findings suggesting that this is causing a bowel obstruction. There are diffuse degenerative changes of the visualized lumbar spine. There is bilateral neural foraminal stenosis at L4-5 and L5-S1. CT/Abdomen/Pelvis without Cont IMPRESSION: (NOT LISTED IN ORDER OF SIGNIFICANCE) There are atherosclerotic calcifications of visualized coronary arteries. There is bilateral neural foraminal stenosis at L4-5 and L5-S1. Other findings as above. Electronically Signed: Juan Francisco Anthony MD at 17:20 EDT ,
[2022-04-26 18:38] VITALS: PULSE 76; RESP 17; O2SAT 97
== END 2022-04-26 18:40 | disposition home or self-care (01) ==
PROVIDERS: Emergency Provider Emergency Medicine; Visit Provider Emergency Medicine
DX: R11.0 Nausea (principal); I25.2 Old myocardial infarction; Z95.5 Presence of coronary angioplasty implant and graft
CPT/HCPCS: 74176; 80048; 81001; 84484; 85025; 93005; 96374; 99283; J7030; J2405

== ENCOUNTER 2022-05-26 01:36 | Emergency (ER) | payer MEDICAID, SELFPAY ==
[2022-05-26 01:37] VITALS: BP 137/82; PULSE 79; RESP 16; TEMP 36.2; O2SAT 98; BMI 27.7
--- NOTE | 2022-05-26 02:15 | EDS_ITS ---
HPI History of Present Illness Chief Complaint: Rash Narrative Narrative: Patient is a 62-year-old male with past medical history of diabetes hypertension hyperlipidemia and CAD. He states that for the past month he has had a rash that is pruritic in nature. He states he lives alone and he denies any new exposures. He states he believes he has poison elena despite not being exposed. He states that he cannot stand the itching any further and therefore comes in for evaluation. He denies having any animals at home either [facility] Medical History Back pain due to injury Chronic pain COPD (chronic obstructive pulmonary disease) Current use of insulin Depression Diabetes Esophageal candidiasis High cholesterol History of stress test Hyperlipidemia Hypertension Injury of head and neck Myocardial infarct Non-smoker Restless legs Sleep apnea Home Medications metformin 500 mg tablet,extended release 24 hr 500 mg PO BID diabetes 05/02/19 [History Last Taken 03/18/22] fluconazole 200 mg tablet (Diflucan) 200 mg PO DAILY antibiotic 03/19/22 [History Last Taken 03/18/22] glipizide 5 mg tablet 5 mg PO BID diabetes 03/19/22 [History Last Taken 03/18/22] insulin glargine 100 unit/mL (3 mL) subcutaneous pen (Lantus Solostar U-100 Insulin) 10 unit subcut BID diabetes 03/19/22 [History Last Taken 03/18/22] ondansetron 4 mg disintegrating tablet 4 mg PO Q8H PRN nausea and vomiting #10 tabs 04/26/22 [Rx Last Taken Unknown] permethrin 5 % topical cream (Elimite) 1 applic topical Q14D 2 doses #60 grams 05/26/22 [Rx Last Taken Unknown] prednisone 10 mg tablet 10 mg PO DAILY #30 tabs 05/26/22 [Rx Last Taken Unknown] Allergy/AdvReac Type Severity Reaction Status Date / Time diphenhydramine HCl Allergy Rash Verified 05/26/22 01:38 [From Benadryl] Penicillins Allergy Rash Verified 05/26/22 01:38 venom-honey bee Allergy Swelling Verified 05/26/22 01:38 [bee venom (honey bee)] Surgical History History of coronary artery stent placement Social History household members: none Smoking Status: Never smoker substance use type: does not use ROS ROS ED Constitutional Constitutional ED: Denies chills or fever(s) ENT ENT ED: Denies sore throat Cardiovascular Cardiovascular: Denies chest pain Respiratory/Chest Respiratory/Chest: Denies cough or dyspnea Gastrointestinal Gastrointestinal: Denies abdominal pain, diarrhea, nausea or vomiting Genitourinary Genitourinary ED: Denies dysuria Musculoskeletal Musculoskeletal: Denies myalgias Integumentary Reports rash Neurologic Neurologic: Denies headache(s) Hematologic/Lymphatic Hematologic/Lymphatic: Denies easy bleeding or easy bruising EXAM Physical Exam Const Vital Signs: 05/26/22 01:37 Temperature 97.1 F L Temperature Source Temporal Pulse Rate 79 Respiratory Rate 16 Blood Pressure 137/82 H Blood Pressure Mean 100 Pulse Ox 98 Oxygen Delivery Method Room Air Positive well nourished and well developed General Appearance ED: well developed HEENT Reports moist mucous membranes HEENT Narrative: No tongue or lip swelling no oral lesions no airway edema or compromise Eyes PERRL and EOMs intact bilaterally Neck supple Resp normal respiratory effort and clear to auscultation bilaterally Cardio regular rate and regular rhythm Extremity normal to inspection Neuro oriented x3 and CN's II-XII intact bilaterally Sensorium / Orientation: alert Psych mental status grossly normal Skin Skin Narrative: Patient has circular excoriated lesions to the bilateral legs bilateral arms across the abdomen chest and back. There are a few scant areas of rash also pr esent in the left finger webspaces. No involvement of the palms or soles MDM MDM MDM Narrative Medical decision making narrative: Patient presented to the ER afebrile and in no acute respiratory distress. He reported having the rash for approximately a month with no new exposures. As the rash is systemic this does not fit contact dermatitis. Based on its pruritic nature with maculopapular appearance and the fact there is lesions noted in the finger webspace I feel this is most likely scabies. As patient is adamant he has contact dermatitis I will still place him on a prednisone taper but he will be prescribed Elimite cream to also cover for what I believe is sca bies. At this time however as he has no signs of systemic infection or respiratory distress he is otherwise safe for discharge. Discharge Plan Triage Chief Complaint: Rash ED Provider: Johann Lemons Dx/Rx/DC Orders Clinical Impression: Scabies, DM (diabetes mellitus), Essential hypertension Instructions: ED Scabies Prescriptions: New permethrin [Elimite] 5 % cream 1 applic topical Q14D Qty: 60 0RF Rx Instructions: apply second treatment 14 days after first treatment if live lice remain prednisone 10 mg tablet 10 mg PO DAILY Qty: 30 0RF Rx Instructions: 4 pills by mouth days 1 through 3 3 pills by mouth days 4 through 6 2 pills by mouth days 7 through 9 1 pill by mouth days 10 through 12 No Action metformin 500 MG tablet 500 mg PO BID Label Comments: diabetes insulin glargine [Lantus Solostar U-100 Insulin] 100 unit/mL (3 mL) Insulin Pen 10 unit SUBCUT BID fluconazole [Diflucan] 200 mg tablet 200 mg PO DAILY glipizide 5 mg tablet 5 mg PO BID Rx Instructions: Hold if glucose less than 130 mg/dl ondansetron 4 mg tablet,disintegrating 4 mg PO Q8H PRN (Reason: nausea and vomiting) Qty: 10 0RF Primary Care Provider: Care Physician,No Primary Referrals: Darshan Emerson MD [Med Staff - Architecture Department Chair] - 10-14 Days if not better Care Physician,No Primary [Primary Care Provider] - Disposition Disposition: Home, Self Care
[2022-05-26] MEDS: Triamcinolone Acetonide 40 MG/ML Vial IM (02:31)
== END 2022-05-26 02:50 | disposition home or self-care (01) ==
PROVIDERS: Emergency Provider Emergency Medicine; Visit Provider Emergency Medicine
DX: B86 Scabies (principal); E11.9 Type 2 diabetes mellitus without complications; I10 Essential (primary) hypertension; I25.10 Atherosclerotic heart disease of native coronary artery without angina pectoris; I25.2 Old myocardial infarction; G47.30 Sleep apnea, unspecified; Z95.5 Presence of coronary angioplasty implant and graft
CPT/HCPCS: 96372; 99284

== ENCOUNTER 2022-07-02 20:56 | Emergency (ER) | payer MEDICAID, SELFPAY ==
[2022-07-02 20:57] VITALS: BP 140/97; PULSE 80; RESP 14; TEMP 36.6; O2SAT 99; BMI 27.8
--- NOTE | 2022-07-02 22:23 | ED.VIS.GI ---
HPI HPI - GI History of Present Illness Chief Complaint: Back Informant: patient Abdominal Pain/Flank Pain Onset: Hours (1-2) Context: Sudden Onset (While sitting at rest on his couch watching wrestling on TV) Timing: Continuous and Waxes and wanes Quality: Aching Location: Left Flank (Mostly in low back) Current Severity: Moderate Maximum Severity: Severe Worsened by: Nothing; Not Worsened By Movement Relieved by: Nothing (had BM after onset, no change) Nausea/Vomiting/Emesis GI Symptom: Negative for Nausea or Vomiting Diarrhea/Melena/Hematochezia GI Symptom: Negative for Diarrhea, Melena or Hematochezia Associated Symptoms Associated Symptoms: Negative for Dysuria, Frequency, Hematuria or Urgency Narrative Narrative: Patient states he was arrested tonight had sudden onset of severe pain in his left side mostly in his low back, but it does radiate around to the left lower quadrant. Seems to wax and wane, occasionally radiates down the back of his leg to his knee as well on the left. Never had this before. Did not do any movements to trigger this and moving does not make it worse. States he felt like I had trouble getting comfortable. No recent illness. [facility] Medical History Back pain due to injury Chronic pain COPD (chronic obstructive pulmonary disease) Current use of insulin Depression Diabetes Esophageal candidiasis High cholesterol History of stress test Hyperlipidemia Hypertension Injury of head and neck Myocardial infarct Non-smoker Restless legs Sleep apnea Home Medications metformin 500 mg tablet,extended release 24 hr 500 mg PO BID diabetes 05/02/19 [History Last Taken 03/18/22] fluconazole 200 mg tablet (Diflucan) 200 mg PO DAILY antibiotic 03/19/22 [History Last Taken 03/18/22] glipizide 5 mg tablet 5 mg PO BID diabetes 03/19/22 [History Last Taken 03/18/22] insulin glargine 100 unit/mL (3 mL) subcutaneous pen (Lantus Solostar U-100 Insulin) 10 unit subcut BID diabetes 03/19/22 [History Last Taken 03/18/22] ondansetron 4 mg disintegrating tablet 4 mg PO Q8H PRN nausea and vomiting #10 tabs 04/26/22 [Rx Last Taken Unknown] permethrin 5 % topical cream (Elimite) 1 applic topical Q14D 2 doses #60 grams 05/26/22 [Rx Last Taken Unknown] prednisone 10 mg tablet 10 mg PO DAILY #30 tabs 05/26/22 [Rx Last Taken Unknown] tramadol 50 mg tablet 50 mg PO Q4H PRN PRN Pain 2 days #12 tabs 07/03/22 [Rx Last Taken Unknown] Allergy/AdvReac Type Severity Reaction Status Date / Time diphenhydramine HCl Allergy Rash Verified 07/02/22 20:56 [From Benadryl] Penicillins Allergy Rash Verified 07/02/22 20:56 venom-honey bee Allergy Swelling Verified 07/02/22 20:56 [bee venom (honey bee)] Surgical History History of coronary artery stent placement Social History household members: none Smoking Status: Never smoker substance use type: does not use ROS ROS ED Constitutional Constitutional ED: Denies chills or fever(s) Eyes Eyes: Denies change in vision or diplopia ENT ENT ED: Denies rhinorrhea or sore throat Cardiovascular Cardiovascular: Denies chest pain or palpitations Respiratory/Chest Respiratory/Chest: Denies cough or dyspnea Gastrointestinal Gastrointestinal: Reports abdominal pain; Denies constipation, fecal incontinence, nausea or vomiting Genitourinary Genitourinary ED: Reports other Details: no urinary retention ; Denies abdominal discomfort or urinary incontinence Musculoskeletal Musculoskeletal: Reports as per HPI and back pain; Denies neck pain Integumentary Denies rash or wounds Neurologic Neurologic: Denies headache(s), paresthesias or weakness Psychiatric Psychiatric: Denies anxiety or suicidal thoughts EXAM Physical Exam Const Vital Signs: 07/02/22 20:57 07/02/22 22:51 Temperature 97.8 F Temperature Source Temporal Pulse Rate 80 Respiratory Rate 14 18 Blood Pressure 140/97 H Blood Pressure Mean 111 Pulse Ox 99 Oxygen Delivery Method Room Air Positive well nourished and well developed General Appearance ED: well developed and NAD HEENT Reports moist mucous membranes Negative for trauma or tenderness Eyes PERRL and EOMs intact bilaterally Neck full ROM and supple Resp normal respiratory effort and clear to auscultation bilaterally Cardio regular rate, regular rhythm and no murmurs GI normal to inspection, nondistended, normoactive bowel sounds, soft to palpation and non-tender GI Narrative: Abdominal obesity. No pulsatile mass palpable. Auscultation: normoactive bowel sounds Palpation: soft Back/Spine normal to inspection General Back: other FROM Lumbar Spine / Lower Back: ROM limited, paraspinal muscle tenderness left (Mild lumbosacral. No midline tenderness. No rash.) and straight leg raise negative bilaterally; Negative for lumbar spinal tenderness Extremity normal to inspection, full ROM and no pedal edema General Extremety ED: Negative for edema, pulses abnormal or tenderness General Extremity: Negative for edema or pulses abnormal Neuro oriented x3 and no sensory deficits noted Sensorium / Orientation: alert Motor Exam: strength 5/5 throughout and clonus absent Deep Tendon Reflexes: Rt Patellar (L4): 2+, Lt Patellar (L4): 2+, Rt Ankle (S1): 2+ and Lt Ankle (S1): 2+ Deep Tendon Reflexes Back: Rt Patellar (L4): 2+, Lt Patellar (L4): 2+, Rt Ankle (S1): 2+ and Lt Ankle (S1): 2+ Plantar Reflex: Downgoing: bilateral Psych mental status grossly normal and thought process normal Skin no rashes or lesions noted and no wounds MDM MDM MDM Narrative Medical decision making narrative: Given the distribution of the patient's pain, I did perform a CT and basic labs with urinalysis to rule out AAA, kidney stone, diverticulitis those are all negative. CT was unremarkable. He was given Toradol and on reevaluation he is improved but still has the pain. He is comfortable going home with prescription for analgesics, since it is going down his leg as well perhaps this is musculoskeletal or radiculopathy although straight leg raises are negative right now he does not have any acute neurologic deficits. Follow-up advised. Lab Data Attestation: I reviewed the patient's lab results. Labs: Laboratory Results - last 24 hr 07/02/22 07/02/22 07/02/22 22:30 22:33 22:33 WBC 7.5 RBC 5.07 Hgb 14.5 Hct 41.9 MCV 82.6 MCH 28.6 MCHC 34.6 RDW Std Deviation 40.1 RDW Coeff of Manjinder 13.5 Plt Count 189 MPV 9.1 Immature Gran % (Auto) 0.300 Neut % (Auto) 64.6 Lymph % (Auto) 24.1 [place] % (Auto) 8.1 Eos % (Auto) 2.5 Baso % (Auto) 0.4 Absolute Neuts (auto) 4.9 Absolute Lymphs (auto) 1.81 Nucleated RBC % 0 Sodium 142 Potassium 3.7 Chloride 107 Carbon Dioxide 30.0 Anion Gap 5 BUN 14 Creatinine 0.87 Estim Creat Clear Calc 110.95 Est GFR (MDRD) Af Amer 114 Est GFR (MDRD) Non-Af 94 BUN/Creatinine Ratio 16.1 Glucose 132 H Calcium 9.1 Urine Color Yellow Urine Clarity Clear Urine pH 7.0 Ur Specific [place] 1.010 Urine Protein 15 H Urine Glucose (UA) 100 H Urine Ketones Negative Urine Occult Blood Negative Urine Nitrite Negative Urine Bilirubin Negative Urine Urobilinogen 1 H Ur Leukocyte Esterase Negative Urine RBC 0 SEEN Urine WBC 0 SEEN Ur Squamous Epith Cells 0-5 SEEN Urine Bacteria 1+ Urine Mucus 1+ Radiography Diagnostic Testing: Clinical Impression(s) from Imaging Studies Abdomen/Pelvis CT 07/02/22 23:00 IMPRESSION: Normal unenhanced CT of the abdomen and pelvis. Electronically Signed: Dakotah Rivera MD at 23:18 EDT , Discharge Plan Triage Chief Complaint: Back ED Provider: Live Ashley Dx/Rx/DC Orders Clinical Impression: Acute left-sided low back pain, Acute left flank pain Instructions: ED Back Pain (Acute or Chronic) Prescriptions: New tramadol 50 mg tablet 50 mg PO Q4H PRN PRN (Reason: Pain) 2 Days Qty: 12 0RF No Action metformin 500 MG tablet 500 mg PO BID Label Comments: diabetes insulin glargine [Lantus Solostar U-100 Insulin] 100 unit/mL (3 mL) Insulin Pen 10 unit SUBCUT BID fluconazole [Diflucan] 200 mg tablet 200 mg PO DAILY glipizide 5 mg tablet 5 mg PO BID Rx Instructions: Hold if glucose less than 130 mg/dl ondansetron 4 mg tablet,disintegrating 4 mg PO Q8H PRN (Reason: nausea and vomiting) Qty: 10 0RF permethrin [Elimite] 5 % cream 1 applic topical Q14D Qty: 60 0RF Rx Instructions: apply second treatment 14 days after first treatment if live lice remain prednisone 10 mg tablet 10 mg PO DAILY Qty: 30 0RF Rx Instructions: 4 pills by mouth days 1 through 3 3 pills by mouth days 4 through 6 2 pills by mouth days 7 through 9 1 pill by mouth days 10 through 12 Primary Care Provider: Care Physician,No Primary Referrals: Doctor,Your [Non-Staff] - 3-5 Days if not improving Disposition Disposition: Home, Self Care
[2022-07-02 22:33] LABS: Red Blood Cells-Urine 0 SEEN /hpf (0-5); White Blood Cells 0 SEEN /hpf (0-5)
[2022-07-02 22:37] LABS: Color, Urine Yellow (Yellow); Glucose, Dipstick 100 mg/dl (Normal); Ketone-Dipstick Negative (Negative); Leukocyte Esterase-Dipstick Negative /ul (Negative); Nitrite-Dipstick Negative (Negative); Occult Blood-Urine Negative /ul (Negative); Protein-Dipstick 15 mg/dl (Negative); Urine Bilirubin Dipstick Negative (Negative); Urine Clarity Clear (Clear); Urine Urobilinogen 1 mg/dl (Normal)
[2022-07-02 22:43] LABS: Absolute Lymphocyte Count 1.81 X10^3/uL (0.83-4.51); Absolute Neutrophil Count 4.9 X10^3/uL (2.0-7.7); Basophil# 0.03 X10^3/uL; Basophil% 0.4 % (0-1); Eosinophil# 0.19 X10^3/uL; Eosinophils% 2.5 % (0-5); Hematocrit 41.9 % (40-54); Hemoglobin 14.5 g/dL (13.0-16.5); Lymphocyte # 1.81 X10^3/ul (0.83-4.51); Lymphocyte % 24.1 % (19-41); Mean Corp Hgb Conc 34.6 g/dL (32-36); Mean Corpuscular Hgb 28.6 pg (27.0-32.0); Mean Corpuscular Volume 82.6 fL (80-94); Mean Platelet Vol. 9.1 fl (6.2-12.0); Monocyte# 0.61 X10^3/uL; Monocyte% 8.1 % (0-10); NRBC Flagged by Analyzer 0 % (0-5); Neutrophil # 4.85 X10^3/uL (2.7-7.7); Neutrophil % 64.6 % (47-70); Platelet Count 189 K/mm3 (150-450); RBC Distribution Width CV 13.5 % (11.6-14.6); RBC Distribution Width SD 40.1 fl (35.1-43.9); Red Blood Count 5.07 M/mm3 (4.6-6.2); White Blood Count 7.5 K/mm3 (4.4-11.0)
[2022-07-02] MEDS: Ketorolac 15 MG/ML Vial IV (22:49)
[2022-07-02 22:51] VITALS: RESP 18
[2022-07-02 22:51] LABS: Squamous Epithelial Cells - UA 0-5 SEEN /hpf (0-5)
[2022-07-02 22:52] LABS: Bacteria 1+ /hpf (None Seen); Mucous, Urine 1+ /hpf (<or=2+)
[2022-07-02 22:57] LABS: Anion Gap 5 (5-15); BUN 14 mg/dL (7-18); BUN/Creat Ratio 16.1 RATIO (10-20); Calcium,Total 9.1 mg/dL (8.5-10.1); Chloride 107 mmol/L (98-107); Creatinine, Serum 0.87 mg/dL (0.70-1.30); EST Glomerular Filtration Rate 94 mL/min (>60); Est Glom Filt Rate - Afr Amer 114 mL/min (>60); Estimated Creatinine Clearance 110.95 ml/min; Glucose 132 mg/dL (74-106); Potassium 3.7 mmol/L (3.5-5.1); Sodium Level 142 mmol/L (136-145)
--- NOTE | 2022-07-02 23:00 | CT_ITS ---
STUDY: CT ABDOMEN AND PELVIS WITHOUT CONTRAST REASON FOR EXAM: Male, 62 years old. left flank pain RADIATION DOSAGE (If Supplied By Facility): CTDIvol = ( 14.71 ) mGy, DLP = ( 893.27 ) mGycm TECHNIQUE: Transaxial images were obtained from the dome of the diaphragm to the symphysis pubis without oral contrast, and without intravenous contrast. Sagittal and coronal images were reconstructed. Individualized dose optimization techniques were used for this CT. COMPARISON: 01/04/2022 FINDINGS: The visualized lung bases are unremarkable. The visualized portions of the heart are within normal limits. Normal liver. Normal gallbladder and extrahepatic biliary system. Normal spleen. Normal pancreas. Normal bilateral adrenal glands. Normal right kidney. Normal left kidney. Normal visualized stomach. Normal small intestine. Normal colon. There is non-visualization of the appendix. Normal abdominal aorta. Normal inferior vena cava. Normal retroperitoneum. Normal urinary bladder. Normal abdominal wall. Mild dextroscoliosis lumbar spine with degenerative disc disease. CT/Abdomen/Pelvis without Cont IMPRESSION: Normal unenhanced CT of the abdomen and pelvis. Electronically Signed: Dakotah iRvera MD at 23:18 EDT ,
[2022-07-03 00:40] VITALS: PULSE 77; RESP 18
== END 2022-07-03 00:41 | disposition home or self-care (01) ==
PROVIDERS: Emergency Provider Emergency Medicine; Visit Provider Emergency Medicine
DX: M54.50 Low back pain, unspecified (principal); E11.9 Type 2 diabetes mellitus without complications; Z79.4 Long term (current) use of insulin; R10.9 Unspecified abdominal pain; G47.30 Sleep apnea, unspecified; I25.2 Old myocardial infarction; Z95.5 Presence of coronary angioplasty implant and graft; Z79.84 Long term (current) use of oral hypoglycemic drugs; Z79.899 Other long term (current) drug therapy
CPT/HCPCS: 74176; 80048; 81001; 85025; 96374; 99282; A4216

== ENCOUNTER 2022-08-07 18:38 | Emergency (ER) | payer MEDICAID, SELFPAY ==
[2022-08-07 18:39] VITALS: BP 137/80; PULSE 78; RESP 16; TEMP 36.6; O2SAT 97; BMI 28.4
--- NOTE | 2022-08-07 18:50 | ED.RN ---
BLOOD GLUCOSE 193.
[2022-08-07 19:11] LABS: Bedside Glucose 193 mg/dL (74-106)
--- NOTE | 2022-08-07 19:14 | CT_ITS ---
STUDY: CT ABDOMEN AND PELVIS WITH CONTRAST ADMINISTRATION OF 2009 HOURS ON 08/07/2022 REASON FOR EXAM: 62-year-old male with abdominal pain and diarrhea. RADIATION DOSAGE (If Supplied By Facility): CTDIvol = ( 15.67 ) mGy, DLP = ( 1339.84 ) mGycm. TECHNIQUE: Transaxial images were obtained from the dome of the diaphragm to the symphysis pubis without oral contrast. 100 mL of Isovue-300 was administered intravenously for this study. Sagittal and coronal images were reconstructed. Individualized dose optimization techniques were used for this CT. COMPARISON: 07/02/2022, which is a normal study. FINDINGS: There is a very minimal right lower lobe interstitial infiltrative process. There is no cardiomegaly. There is a prominent pericardial fat pad. Normal liver. Normal gallbladder and extrahepatic biliary system. No cholelithiasis or cholecystitis. Normal spleen. Normal pancreas. No pancreatitis or pancreatic mass lesions. Normal bilateral adrenal glands. Normal kidneys without obstructive uropathy or pyelonephritis. Distended stomach filled with food and fluid. Normal small intestine. Colon is empty of feces, compatible with the patient''s diarrhea. There is no diverticulitis, colitis, or intestinal obstruction. The appendix is visualized and appears normal. No appendicitis. Appendix is best visualized above the terminal ileum on coronal image 64. Normal abdominal aorta. Normal inferior vena cava. Normal retroperitoneum. Normal urinary bladder. Normal prostate. Normal abdominal wall. Moderate narrowing at L4-5 and mild narrowing of the L5-S1 intervertebral disc spaces. No vertebral body fractures or subluxations. Prominent osteophytic degenerative changes at the L3-C5 level. Normal hips and pelvis. CT/Abdomen/Pelvis W IV Cont ONLY IMPRESSION: 1. Very minimal right lower lobe interstitial infiltrate process. No cardiomegaly. 2. Normal liver, spleen, and pancreas. 3. No cholelithiasis, cholecystitis, pancreatitis. 4. Normal kidneys without obstructive uropathy. 5. Empty air-filled colon (compatible diarrhea) and no evidence of a diverticulitis, colitis, appendicitis, or intestinal obstruction. 6. Mildly distended stomach containing food and fluid. 7. No evidence of other intra-abdominal abnormalities. 8. Moderate narrowing of the L4-5 intervertebral disc space and mild narrowing of the L5/S1 intervertebral disc space. Moderate osteophytic degenerative changes at the L4-5 level. No other abnormalities of the lumbosacral spine, pelvis, or hips. Electronically Signed: Tony Holbrook MD at 21:53 EDT ,
--- NOTE | 2022-08-07 19:15 | EDS_ITS ---
HPI History of Present Illness Chief Complaint: Dizziness Narrative Narrative: Patient with past medical history of hypertension, diabetes type 2, hypercholesterolemia presents with diarrhea that he has had for the last 2-3 days. He states he feels lightheaded and is having diffuse abdominal cramping. No fever or chills, no nausea or vomiting. Additionally, he has had multiple liquid stools for every 30 minutes for the last day. No blood in his stool. No exacerbating or alleviating factors to his diarrhea. He denies shortness of breath or current chest pain. No other symptoms. [facility] Medical History Back pain due to injury Chronic pain COPD (chronic obstructive pulmonary disease) Current use of insulin Depression Diabetes Esophageal candidiasis High cholesterol History of stress test Hyperlipidemia Hypertension Injury of head and neck Myocardial infarct Non-smoker Restless legs Sleep apnea Home Medications metformin 500 mg tablet,extended release 24 hr 500 mg PO BID diabetes 05/02/19 [History Last Taken 03/18/22] fluconazole 200 mg tablet (Diflucan) 200 mg PO DAILY antibiotic 03/19/22 [History Last Taken 03/18/22] glipizide 5 mg tablet 5 mg PO BID diabetes 03/19/22 [History Last Taken 03/18/22] insulin glargine 100 unit/mL (3 mL) subcutaneous pen (Lantus Solostar U-100 Insulin) 10 unit subcut BID diabetes 03/19/22 [History Last Taken 03/18/22] ondansetron 4 mg disintegrating tablet 4 mg PO Q8H PRN nausea and vomiting #10 tabs 04/26/22 [Rx Last Taken Unknown] permethrin 5 % topical cream (Elimite) 1 applic topical Q14D 2 doses #60 grams 05/26/22 [Rx Last Taken Unknown] prednisone 10 mg tablet 10 mg PO DAILY #30 tabs 05/26/22 [Rx Last Taken Unknown] tramadol 50 mg tablet 50 mg PO Q4H PRN PRN Pain 2 days #12 tabs 07/03/22 [Rx Last Taken Unknown] dicyclomine 20 mg tablet 20 mg PO TID PRN abdominal cramping #20 tabs 08/07/22 [Rx Last Taken Unknown] Allergy/AdvReac Type Severity Reaction Status Date / Time diphenhydramine HCl Allergy Rash Verified 08/07/22 18:41 [From Benadryl] Penicillins Allergy Rash Verified 08/07/22 18:41 venom-honey bee Allergy Swelling Verified 08/07/22 18:41 [bee venom (honey bee)] Surgical History History of coronary artery stent placement Social History household members: none Smoking Status: Never smoker substance use type: does not use ROS ROS ED ROS Narrative Constitutional: No fever, no chills. HEENT: No sore throat. No neck pain. No loss of vision. No rhinorrhea. Cardiovascular: No chest pain. No palpitations. No pedal edema. Respiratory: No cough, no shortness of breath. Abdominal: Positive diffuse cramping/abdominal pain. No nausea. No vomiting. Positive diarrhea x2 to 3 days. Genitourinary: No dysuria. No hematuria. Musculoskeletal: No myalgias. No arthralgias. Neurologic: No headaches. No dizziness. No lightheadedness. Skin: No rash. No change in color. Psychiatric: No depression. No anxiety. Constitutional Constitutional ED: Denies chills, fever(s), subjective, sweats, weight loss or other Eyes Eyes: Denies blurry vision, change in vision, diplopia or other ENT ENT ED: Denies ear pain, rhinorrhea, sore throat or other Cardiovascular Cardiovascular: Denies chest pain, orthopnea, palpitations, racing heartbeat or other Respiratory/Chest Respiratory/Chest: Denies cough, dyspnea, dyspnea on exertion or orthopnea Gastrointestinal Gastrointestinal: Reports abdominal pain and diarrhea Genitourinary Genitourinary ED: Denies dysuria or hematuria Musculoskeletal Musculoskeletal: Denies arthralgias, back pain, myalgias or neck pain Integumentary Denies abscess, Abrasions, rash or other Neurologic Neurologic: Reports other; Denies headache(s), paresthesias or weakness Psychiatric Psychiatric: Denies anxiety or depression EXAM Physical Exam Narrative Exam Narrative: Afebrile. Vital signs noted. HEENT: Normocephalic. Atraumatic. PERRL, EOMI. Neck soft and supple. No point tenderness or step off. Cardiovascular: Regular rate and rhythm. No murmurs, rubs, or gallops appreciated. Respiratory: No tachypnea. Lungs clear to auscultation bilaterally. Gastrointestinal: Abdomen soft, mild diffuse tenderness to palpation, with normoactive bowel sounds. No rebound or guarding. Neurological: Awake. Alert. Nonfocal, nonlateralizing. Skin: No rash. Normal color. No pallor. Musculoskeletal: No pedal edema. Full range of motion extremities. Const Vital Signs: 08/07/22 18:39 08/07/22 18:51 Temperature 97.8 F Temperature Source Temporal Pulse Rate 78 Respiratory Rate 16 Respiratory Effort Normal Non-Labored Respiratory Pattern Normal Blood Pressure 137/80 H Blood Pressure Mean 99 Pulse Ox 97 Oxygen Delivery Method Room Air Positive well nourished, well developed and obese General Appearance ED: well developed Nutritional Appearance: obese HEENT Reports moist mucous membranes Eyes PERRL and EOMs intact bilaterally Neck no lymphadenopathy Resp normal respiratory effort and clear to auscultation bilaterally Cardio regular rate and regular rhythm GI Auscultation: normoactive bowel sounds Palpation: soft and tender LLQ Back/Spine no CVA tenderness Extremity normal to inspection Neuro oriented x3 and CN's II-XII intact bilaterally Psych mental status grossly normal MDM MDM MDM Narrative Medical decision making narrative: Comprehensive workup was pursued. I will obtain laboratory work and CT imaging. CBC is grossly normal with a normal white count of 9.1, hemoglobin normal at 14.4, hematocrit 42.1. Platelet count normal at 227. CMP shows chloride slightly elevated at 108 otherwise unremarkable with a glucose of 194 and a normal anion gap of 6. Normal BUN of 8 and creatinine 0.9. LFT show AST low at 7 and ALT normal at 16. CT of the abdomen pelvis is consistent with diarrhea but no evidence of colitis, no acute process or obstruction. They did note right lower lobe very small infiltrative process. However, he is not showing any signs of pneumonia such as cough, shortness of breath, no fever or elevated white count. I do not feel antibiotics are indicated. Stomach is slightly distended with food contents. Additionally, there is no acute intra-abdominal process noted on CT scanning. At this point in time, he was given Bentyl. I feel he can be discharged safely home with follow-up. I will write him a prescription for the Bentyl. I feel he can follow-up with his primary care provider. Return instructions to the emergency department were reviewed. Disposition is discharged home in stable condition. Lab Data Attestation: I reviewed the patient's lab results. Labs: Laboratory Results - last 24 hr 08/07/22 08/07/22 08/07/22 18:48 18:56 18:56 WBC 9.1 RBC 5.01 Hgb 14.4 Hct 42.1 MCV 84.0 MCH 28.7 MCHC 34.2 RDW Std Deviation 42.5 RDW Coeff of Manjinder 14.0 Plt Count 227 MPV 9.5 Immature Gran % (Auto) 0.400 Neut % (Auto) 68.4 Lymph % (Auto) 21.1 [place] % (Auto) 6.7 Eos % (Auto) 3.1 Baso % (Auto) 0.3 Absolute Neuts (auto) 6.2 Absolute Lymphs (auto) 1.92 Nucleated RBC % 0 Sodium 142 Potassium 3.6 Chloride 108 H Carbon Dioxide 28.0 Anion Gap 6 BUN 8 Creatinine 0.92 Estim Creat Clear Calc 104.92 Est GFR (MDRD) Af Amer 107 Est GFR (MDRD) Non-Af 89 BUN/Creatinine Ratio 8.7 L Glucose 194 H Calcium 9.1 Total Bilirubin 0.40 AST 7 L ALT 16 Alkaline Phosphatase 77 Total Protein 7.5 Albumin 3.9 Globulin 3.6 Albumin/Globulin Ratio 1.1 Urine Color Urine Clarity Urine pH Ur Specific [place] Urine Protein Urine Glucose (UA) Urine Ketones Urine Occult Blood Urine Nitrite Urine Bilirubin Urine Urobilinogen Ur Leukocyte Esterase Urine RBC Urine WBC Ur Squamous Epith Cells Urine Bacteria Urine Mucus POC Glucose 193 H 08/07/22 20:20 WBC RBC Hgb Hct MCV MCH MCHC RDW Std Deviation RDW Coeff of Manjinder Plt Count MPV Immature Gran % (Auto) Neut % (Auto) Lymph % (Auto) [place] % (Auto) Eos % (Auto) Baso % (Auto) Absolute Neuts (auto) Absolute Lymphs (auto) Nucleated RBC % Sodium Potassium Chloride Carbon Dioxide Anion Gap BUN Creatinine Estim Creat Clear Calc Est GFR (MDRD) Af Amer Est GFR (MDRD) Non-Af BUN/Creatinine Ratio Glucose Calcium Total Bilirubin AST ALT Alkaline Phosphatase Total Protein Albumin Globulin Albumin/Globulin Ratio Urine Color Straw Urine Clarity Clear Urine pH 6.0 Ur Specific [place] 1.010 Urine Protein Negative Urine Glucose (UA) Normal Urine Ketones Negative Urine Occult Blood Negative Urine Nitrite Negative Urine Bilirubin Negative Urine Urobilinogen Normal Ur Leukocyte Esterase Negative Urine RBC 0 SEEN Urine WBC 0 SEEN Ur Squamous Epith Cells 0 SEEN Urine Bacteria 0 SEEN Urine Mucus 0 SEEN POC Glucose Radiography Diagnostic Testing: Clinical Impression(s) from Imaging Studies Abdomen/Pelvis CT 08/07/22 19:14 IMPRESSION: 1. Very minimal right lower lobe interstitial infiltrate process. No cardiomegaly. 2. Normal liver, spleen, and pancreas. 3. No cholelithiasis, cholecystitis, pancreatitis. 4. Normal kidneys without obstructive uropathy. 5. Empty air-filled colon (compatible diarrhea) and no evidence of a diverticulitis, colitis, appendicitis, or intestinal obstruction. 6. Mildly distended stomach containing food and fluid. 7. No evidence of other intra-abdominal abnormalities. 8. Moderate narrowing of the L4-5 intervertebral disc space and mild narrowing of the L5/S1 intervertebral disc space. Moderate osteophytic degenerative changes at the L4-5 level. No other abnormalities of the lumbosacral spine, pelvis, or hips. Electronically Signed: Tony Holbrook MD at 21:53 EDT , Discharge Plan Triage Chief Complaint: Dizziness ED Provider: Barry Mathew Dx/Rx/DC Orders Clinical Impression: Diarrhea, Abdominal pain Instructions: Treating Diarrhea, ED Diarrhea, Unknown Cause, ED Abdominal Pain Unkn Cause Male... Prescriptions: New dicyclomine 20 mg tablet 20 mg PO TID PRN (Reason: abdominal cramping) Qty: 20 0RF No Action metformin 500 MG tablet 500 mg PO BID Label Comments: diabetes insulin glargine [Lantus Solostar U-100 Insulin] 100 unit/mL (3 mL) Insulin Pen 10 unit SUBCUT BID fluconazole [Diflucan] 200 mg tablet 200 mg PO DAILY glipizide 5 mg tablet 5 mg PO BID Rx Instructions: Hold if glucose less than 130 mg/dl ondansetron 4 mg tablet,disintegrating 4 mg PO Q8H PRN (Reason: nausea and vomiting) Qty: 10 0RF permethrin [Elimite] 5 % cream 1 applic topical Q14D Qty: 60 0RF Rx Instructions: apply second treatment 14 days after first treatment if live lice remain prednisone 10 mg tablet 10 mg PO DAILY Qty: 30 0RF Rx Instructions: 4 pills by mouth days 1 through 3 3 pills by mouth days 4 through 6 2 pills by mouth days 7 through 9 1 pill by mouth days 10 through 12 tramadol 50 mg tablet 50 mg PO Q4H PRN PRN (Reason: Pain) 2 Days Qty: 12 0RF Primary Care Provider: Care Physician,No Primary Referrals: Care Physician,No Primary [Primary Care Provider] - Disposition Disposition: Home, Self Care
[2022-08-07] MEDS: Dicyclomine 20 MG/2 ML Vial IM (19:20)
[2022-08-07] MEDS: 0.9% Normal Saline 1,000 ML 1000 ML IV (19:20)
[2022-08-07 19:54] LABS: ALB/GLOB Ratio 1.1 RATIO (0.9-2.4); AST(SGOT) 7 U/L (15-37); Alanine Aminotransfer ALT/SGPT 16 U/L (16-61); Albumin, Serum 3.9 g/dL (3.2-5.0); Alkaline Phosphatase 77 U/L (45-117); Anion Gap 6 (5-15); BUN 8 mg/dL (7-18); BUN/Creat Ratio 8.7 RATIO (10-20); Calcium,Total 9.1 mg/dL (8.5-10.1); Chloride 108 mmol/L (98-107); Creatinine, Serum 0.92 mg/dL (0.70-1.30); EST Glomerular Filtration Rate 89 mL/min (>60); Est Glom Filt Rate - Afr Amer 107 mL/min (>60); Estimated Creatinine Clearance 104.92 ml/min; Globulin 3.6 g/dL (2.2-4.2); Glucose 194 mg/dL (74-106); Potassium 3.6 mmol/L (3.5-5.1); Protein, Total 7.5 g/dL (6.4-8.2); Sodium Level 142 mmol/L (136-145)
--- NOTE | 2022-08-07 19:54 | CM.ED ---
SW Note Referral Source: Case Find Referral Reason: No Primary Care Physician (PCP) SW reviewed chart and noted that patient has no PCP. SW provided patient with list of [facility] and [facility] Physician List for reference. SW also provided patient with handout ?Where to go When?. No other issues or concerns voiced at this time. SW remains available for any additional needs. Plan: Provided patient with PCP information Ashley LOERA
[2022-08-07 19:59] LABS: Absolute Lymphocyte Count 1.92 X10^3/uL (0.83-4.51); Absolute Neutrophil Count 6.2 X10^3/uL (2.0-7.7); Basophil# 0.03 X10^3/uL; Basophil% 0.3 % (0-1); Eosinophil# 0.28 X10^3/uL; Eosinophils% 3.1 % (0-5); Hematocrit 42.1 % (40-54); Hemoglobin 14.4 g/dL (13.0-16.5); Lymphocyte # 1.92 X10^3/ul (0.83-4.51); Lymphocyte % 21.1 % (19-41); Mean Corp Hgb Conc 34.2 g/dL (32-36); Mean Corpuscular Hgb 28.7 pg (27.0-32.0); Mean Platelet Vol. 9.5 fl (6.2-12.0); Monocyte# 0.61 X10^3/uL; Monocyte% 6.7 % (0-10); NRBC Flagged by Analyzer 0 % (0-5); Neutrophil # 6.24 X10^3/uL (2.7-7.7); Neutrophil % 68.4 % (47-70); Platelet Count 227 K/mm3 (150-450); RBC Distribution Width SD 42.5 fl (35.1-43.9); Red Blood Count 5.01 M/mm3 (4.6-6.2); White Blood Count 9.1 K/mm3 (4.4-11.0)
[2022-08-07 20:31] LABS: Bacteria 0 SEEN /hpf (None Seen); Mucous, Urine 0 SEEN /hpf (<or=2+); Red Blood Cells-Urine 0 SEEN /hpf (0-5); Squamous Epithelial Cells - UA 0 SEEN /hpf (0-5); White Blood Cells 0 SEEN /hpf (0-5)
[2022-08-07 20:42] LABS: Color, Urine Straw (Yellow); Glucose, Dipstick Normal (Normal); Ketone-Dipstick Negative (Negative); Leukocyte Esterase-Dipstick Negative /ul (Negative); Nitrite-Dipstick Negative (Negative); Occult Blood-Urine Negative /ul (Negative); Protein-Dipstick Negative (Negative); Urine Bilirubin Dipstick Negative (Negative); Urine Clarity Clear (Clear); Urine Urobilinogen Normal (Normal)
[2022-08-07 22:15] VITALS: BP 120/70; PULSE 83; RESP 16; O2SAT 98
== END 2022-08-07 22:16 | disposition home or self-care (01) ==
PROVIDERS: Emergency Provider Emergency Medicine; Visit Provider Emergency Medicine
DX: R19.7 Diarrhea, unspecified (principal); R10.9 Unspecified abdominal pain; I25.2 Old myocardial infarction; G47.30 Sleep apnea, unspecified; E66.9 Obesity, unspecified; Z95.5 Presence of coronary angioplasty implant and graft
CPT/HCPCS: 96360; 74177; 80053; 81001; 82962; 85025; 96361; 96372; 99283; J7030; Q9967; A4216

== ENCOUNTER 2022-09-18 10:21 | Emergency (ER) | payer MEDICAID, SELFPAY ==
[2022-09-18 10:21] VITALS: BP 106/94; PULSE 77; RESP 16; TEMP 36.3; O2SAT 99; BMI 27.7
--- NOTE | 2022-09-18 10:38 | EDS_ITS ---
HPI HPI - GI History of Present Illness Chief Complaint: Nausea/Vomiting/Diarrhea Narrative Narrative: 62-year-old male presenting with nausea, vomiting, diarrhea. He states that he was in his usual state of health this morning. He went and bought an apple frit ter with his brother who also ate 1. They went to the [place] he states he went home and had 2 episodes of diarrhea. He states he also vomited and became very sweaty. States currently has nausea and some mild epigastric discomfort. He has not had fever, chills, body aches. No chest pain, palpitations, shortness of breath. Patient states I think my sugar is up. Initially he told me that his blood sugar typically stays around 138 but it was up to 145 last night. Patient then stated that he is out of lancets and his glucometer is not working correctly. He states his primary care physician is supposed to be calling him in a new 1. He cannot remember the name of his primary care physician. [facility] Medical History Back pain due to injury Chronic pain COPD (chronic obstructive pulmonary disease) Current use of insulin Depression Diabetes Esophageal candidiasis High cholesterol History of stress test Hyperlipidemia Hypertension Injury of head and neck Myocardial infarct Non-smoker Restless legs Sleep apnea Home Medications metformin 500 mg tablet,extended release 24 hr 500 mg PO BID diabetes 05/02/19 [History Last Taken 03/18/22] fluconazole 200 mg tablet (Diflucan) 200 mg PO DAILY antibiotic 03/19/22 [History Last Taken 03/18/22] glipizide 5 mg tablet 5 mg PO BID diabetes 03/19/22 [History Last Taken 03/18/22] insulin glargine 100 unit/mL (3 mL) subcutaneous pen (Lantus Solostar U-100 Ins ulin) 10 unit subcut BID diabetes 03/19/22 [History Last Taken 03/18/22] ondansetron 4 mg disintegrating tablet 4 mg PO Q8H PRN nausea and vomiting #10 tabs 04/26/22 [Rx Last Taken Unknown] permethrin 5 % topical cream (Elimite) 1 applic topical Q14D 2 doses #60 grams 05/26/22 [Rx Last Taken Unknown] prednisone 10 mg tablet 10 mg PO DAILY #30 tabs 05/26/22 [Rx Last Taken Unknown] tramadol 50 mg tablet 50 mg PO Q4H PRN PRN Pain 2 days #12 tabs 07/03/22 [Rx Last Taken Unknown] dicyclomine 20 mg tablet 20 mg PO TID PRN abdominal cramping #20 tabs 08/07/22 [Rx Last Taken Unknown] ondansetron 4 mg disintegrating tablet 4 mg PO Q8H PRN nausea and vomiting #10 tabs 09/18/22 [Rx Last Taken Unknown] Allergy/AdvReac Type Severity Reaction Status Date / Time diphenhydramine HCl Allergy Rash Verified 09/18/22 10:25 [From Benadryl] Penicillins Allergy Rash Verified 09/18/22 10:25 venom-honey bee Allergy Swelling Verified 09/18/22 10:25 [bee venom (honey bee)] Surgical History History of coronary artery stent placement Social History household members: none Smoking Status: Never smoker substance use type: does not use ROS ROS ED Constitutional Constitutional ED: Reports sweats; Denies chills or fever(s) ENT ENT ED: Denies rhinorrhea or sore throat Cardiovascular Cardiovascular: Denies chest pain or palpitations Respiratory/Chest Respiratory/Chest: Denies cough or dyspnea Gastrointestinal Gastrointestinal: Reports abdominal pain, diarrhea, nausea and vomiting Genitourinary Genitourinary ED: Denies dysuria or hematuria Musculoskeletal Musculoskeletal: Denies arthralgias or myalgias Integumentary Denies abscess or Abrasions Neurologic Neurologic: Denies headache(s) Psychiatric Psychiatric: Denies anxiety or depression Endocrine Endocrinology: Denies polydipsia or polyphagia EXAM Physical Exam Const Vital Signs: 09/18/22 10:21 Temperature 97.4 F L Temperature Source Temporal Pulse Rate 77 Respiratory Rate 16 Blood Pressure 106/94 H Blood Pressure Mean 98 Pulse Ox 99 Oxygen Delivery Method Room Air Positive well nourished General Appearance ED: NAD; Negative for pallor HEENT Reports moist mucous membranes normocephalic and atraumatic Eyes PERRL and EOMs intact bilaterally Resp normal respiratory effort and clear to auscultation bilaterally Cardio regular rate and regular rhythm GI Auscultation: normoactive bowel sounds Palpation: Negative for guarding or rigid Neuro CN's II-XII intact bilaterally Sensorium / Orientation: alert and oriented to person Psych Mood & Affect: Negative for depressed or anxious Skin no wounds General Skin Exam: Negative for jaundice or pallor MDM MDM MDM Narrative Medical decision making narrative: Patient seen and evaluated on arrival. Vital signs stable he is afebrile. He complains of mild epigastric discomfort as well as nausea, vomiting, diarrhea. Blood work is obtained. CBC within normal limits. CMP is also normal. Glucose is 262 which is a little high but there is no anion gap. He was given a liter of IV fluids. He feels better on examination. EtOH negative. I do not believe he needs any imaging. He is to continue his insulin and metformin at home. Is given Zofran for home. He will follow-up with his PCP. Return precautions discussed. Impression: 1. Nausea/vomiting 2. Abdominal pain 3. Diarrhea 4. Hyperglycemia Lab Data Attestation: I reviewed the patient's lab results. Labs: Laboratory Results - last 24 hr 09/18/22 09/18/22 09/18/22 10:55 10:55 10:55 WBC 7.9 RBC 4.87 Hgb 14.6 Hct 40.5 MCV 83.2 MCH 30.0 MCHC 36.0 RDW Std Deviation 39.2 RDW Coeff of Manjinder 13.1 Plt Count 188 MPV 9.1 Immature Gran % (Auto) 0.400 Neut % (Auto) 68.0 Lymph % (Auto) 20.4 Sandoval % (Auto) 7.2 Eos % (Auto) 3.5 Baso % (Auto) 0.5 Absolute Neuts (auto) 5.4 Absolute Lymphs (auto) 1.62 Nucleated RBC % 0 Sodium 137 Potassium 3.7 Chloride 106 Carbon Dioxide 24.0 Anion Gap 7 BUN 16 Creatinine 0.98 Estim Creat Clear Calc 98.49 Est GFR (MDRD) Af Amer 100 Est GFR (MDRD) Non-Af 82 BUN/Creatinine Ratio 16.3 Glucose 262 H Calcium 9.1 Total Bilirubin 0.50 AST 9 L ALT 16 Alkaline Phosphatase 75 Total Protein 7.1 Albumin 3.6 Globulin 3.5 Albumin/Globulin Ratio 1.0 Lipase 64 L Ethyl Alcohol < 3.0 Discharge Plan Triage Chief Complaint: Nausea/Vomiting/Diarrhea ED Provider: Keenan Wu Dx/Rx/DC Orders Instructions: ED Vomiting and Diarrhea ... Prescriptions: New ondansetron 4 mg tablet,disintegrating 4 mg PO Q8H PRN (Reason: nausea and vomiting) Qty: 10 0RF No Action metformin 500 MG tablet 500 mg PO BID Label Comments: diabetes insulin glargine [Lantus Solostar U-100 Insulin] 100 unit/mL (3 mL) Insulin Pen 10 unit SUBCUT BID fluconazole [Diflucan] 200 mg tablet 200 mg PO DAILY glipizide 5 mg tablet 5 mg PO BID Rx Instructions: Hold if glucose less than 130 mg/dl ondansetron 4 mg tablet,disintegrating 4 mg PO Q8H PRN (Reason: nausea and vomiting) Qty: 10 0RF permethrin [Elimite] 5 % cream 1 applic topical Q14D Qty: 60 0RF Rx Instructions: apply second treatment 14 days after first treatment if live lice remain prednisone 10 mg tablet 10 mg PO DAILY Qty: 30 0RF Rx Instructions: 4 pills by mouth days 1 through 3 3 pills by mouth days 4 through 6 2 pills by mouth days 7 through 9 1 pill by mouth days 10 through 12 tramadol 50 mg tablet 50 mg PO Q4H PRN PRN (Reason: Pain) 2 Days Qty: 12 0RF dicyclomine 20 mg tablet 20 mg PO TID PRN (Reason: abdominal cramping) Qty: 20 0RF Primary Care Provider: Care Physician,No Primary Referrals: Care Physician,No Primary [Primary Care Provider] - Disposition Disposition: Home, Self Care
[2022-09-18] MEDS: Ondansetron 4 MG/2 ML Vial IV (10:52)
[2022-09-18] MEDS: 0.9% Normal Saline 1,000 ML 1000 ML IV (10:52)
[2022-09-18 11:04] LABS: Absolute Lymphocyte Count 1.62 X10^3/uL (0.83-4.51); Absolute Neutrophil Count 5.4 X10^3/uL (2.0-7.7); Basophil# 0.04 X10^3/uL; Basophil% 0.5 % (0-1); Eosinophil# 0.28 X10^3/uL; Eosinophils% 3.5 % (0-5); Hematocrit 40.5 % (40-54); Hemoglobin 14.6 g/dL (13.0-16.5); Lymphocyte # 1.62 X10^3/ul (0.83-4.51); Lymphocyte % 20.4 % (19-41); Mean Corpuscular Volume 83.2 fL (80-94); Mean Platelet Vol. 9.1 fl (6.2-12.0); Monocyte# 0.57 X10^3/uL; Monocyte% 7.2 % (0-10); NRBC Flagged by Analyzer 0 % (0-5); Neutrophil # 5.39 X10^3/uL (2.7-7.7); Platelet Count 188 K/mm3 (150-450); RBC Distribution Width CV 13.1 % (11.6-14.6); RBC Distribution Width SD 39.2 fl (35.1-43.9); Red Blood Count 4.87 M/mm3 (4.6-6.2); White Blood Count 7.9 K/mm3 (4.4-11.0)
[2022-09-18 11:22] LABS: Glucose 262 mg/dL (74-106)
[2022-09-18 11:23] LABS: AST(SGOT) 9 U/L (15-37); Alanine Aminotransfer ALT/SGPT 16 U/L (16-61); Albumin, Serum 3.6 g/dL (3.2-5.0); Alkaline Phosphatase 75 U/L (45-117); Anion Gap 7 (5-15); BUN 16 mg/dL (7-18); BUN/Creat Ratio 16.3 RATIO (10-20); Calcium,Total 9.1 mg/dL (8.5-10.1); Chloride 106 mmol/L (98-107); Creatinine, Serum 0.98 mg/dL (0.70-1.30); EST Glomerular Filtration Rate 82 mL/min (>60); Est Glom Filt Rate - Afr Amer 100 mL/min (>60); Estimated Creatinine Clearance 98.49 ml/min; Globulin 3.5 g/dL (2.2-4.2); Lipase 64 U/L (73-393); Potassium 3.7 mmol/L (3.5-5.1); Protein, Total 7.1 g/dL (6.4-8.2); Sodium Level 137 mmol/L (136-145)
[2022-09-18 11:42] LABS: Alcohol, Blood (Medical)-Serum < 3.0 mg/dL
== END 2022-09-18 13:03 | disposition home or self-care (01) ==
PROVIDERS: Emergency Provider Student in an Organized Health Care Education/Training Program; Visit Provider Student in an Organized Health Care Education/Training Program
DX: R11.2 Nausea with vomiting, unspecified (principal); R10.9 Unspecified abdominal pain; R19.7 Diarrhea, unspecified; R73.9 Hyperglycemia, unspecified; G47.30 Sleep apnea, unspecified; I25.2 Old myocardial infarction; Z95.5 Presence of coronary angioplasty implant and graft
CPT/HCPCS: 80053; 82077; 83690; 85025; 96361; 96374; 99282; J7030; J2405

== ENCOUNTER 2022-10-29 21:00 | Emergency (ER) | payer MEDICAID, SELFPAY ==
[2022-10-29 21:00] VITALS: BP 111/74; PULSE 84; RESP 18; TEMP 36.3; O2SAT 97; BMI 27.8
--- NOTE | 2022-10-29 21:05 | EKG12_ITS ---
Test Reason : SYNCOPE Blood Pressure : / mmHG Vent. Rate : 078 BPM Atrial Rate : 078 BPM P-R Int : 172 ms QRS Dur : 090 ms QT Int : 382 ms P-R-T Axes : 072 -65 025 degrees QTc Int : 435 ms Sinus rhythm with Premature atrial complexes and PVC's Left anterior fascicular block Abnormal ECG Confirmed by CHRISTOPH TRACY, NAVEED ([id number]), editor house organ JADEN HERNANDEZ ([id number]) on 11/03/2022 10:08:07 AM Referred By: MANASA Confirmed By:NAVEED HAWTHORNE MD
[2022-10-29 22:50] VITALS: BP 101/68; PULSE 73; RESP 18; O2SAT 98
[2022-10-29 23:48] LABS: Absolute Lymphocyte Count 1.87 X10^3/uL (0.83-4.51); Absolute Neutrophil Count 8.6 X10^3/uL (2.0-7.7); Basophil# 0.04 X10^3/uL; Basophil% 0.3 % (0-1); Eosinophil# 0.23 X10^3/uL; Hematocrit 42.2 % (40-54); Hemoglobin 14.8 g/dL (13.0-16.5); Lymphocyte # 1.87 X10^3/ul (0.83-4.51); Lymphocyte % 16.2 % (19-41); Mean Corp Hgb Conc 35.1 g/dL (32-36); Mean Corpuscular Hgb 28.7 pg (27.0-32.0); Mean Corpuscular Volume 81.9 fL (80-94); Mean Platelet Vol. 9.5 fl (6.2-12.0); Monocyte# 0.71 X10^3/uL; Monocyte% 6.2 % (0-10); NRBC Flagged by Analyzer 0 % (0-5); Neutrophil # 8.63 X10^3/uL (2.7-7.7); Platelet Count 224 K/mm3 (150-450); RBC Distribution Width CV 13.1 % (11.6-14.6); RBC Distribution Width SD 38.6 fl (35.1-43.9); Red Blood Count 5.15 M/mm3 (4.6-6.2); White Blood Count 11.5 K/mm3 (4.4-11.0)
[2022-10-30 00:03] LABS: Anion Gap 6 (5-15); BUN 17 mg/dL (7-18); BUN/Creat Ratio 14.8 RATIO (10-20); Calcium,Total 8.9 mg/dL (8.5-10.1); Chloride 104 mmol/L (98-107); Creatinine, Serum 1.15 mg/dL (0.70-1.30); EST Glomerular Filtration Rate 68 mL/min (>60); Est Glom Filt Rate - Afr Amer 83 mL/min (>60); Estimated Creatinine Clearance 83.93 ml/min; Glucose 361 mg/dL (74-106); Sodium Level 136 mmol/L (136-145)
[2022-10-30 00:27] VITALS: BP 144/88; PULSE 82; RESP 16; O2SAT 95
[2022-10-30 00:31] VITALS: BP 101/73; BP 103/71; BP 131/89; PULSE 78; PULSE 79; PULSE 84
--- NOTE | 2022-10-30 00:32 | CT_ITS ---
INDICATION: syncope EXAMINATION: CT BRAIN - CT Head or Brain W/O Contrast Injection TECHNIQUE: Multiple axial images were obtained of the head without intravenous contrast. A radiation dose optimization technique was used for this scan. IV Contrast dosage and agent: None. COMPARISON: CT head 01/03/2020. FINDINGS: BRAIN: No acute bleed. No edema. Amado-white matter differentiation is maintained. VENTRICLES AND SULCI: Not dilated. EXTRA-AXIAL: No hemorrhage, fluid collection, or mass. CALVARIUM / SKULL BASE: Unremarkable. FACE/SINUSES: Unremarkable. SOFT TISSUES: Unremarkable. CT/Brain/Head without Contrast IMPRESSION: No acute abnormality. Electronically Signed: Lizette Grimaldo MD at 2:05 EST ,
[2022-10-30 00:50] LABS: Magnesium 1.7 mg/dL (1.6-2.6)
[2022-10-30] MEDS: 0.9% Normal Saline 1,000 ML 999 ML IV ×2 (01:41→02:47)
[2022-10-30 03:15] VITALS: BP 111/81; PULSE 89; RESP 18; O2SAT 94
--- NOTE | 2022-10-30 03:56 | EDS_ITS ---
HPI History of Present Illness Chief Complaint: Syncope Narrative Narrative: Patient is a 62-year-old male with past medical history of hypertension and hypothyroidism as well as diabetes. He reports that over the past 2 to 3 days he has been having fatigue and generalized weakness with bouts of loose stool/diarrhea. He states that today he was walking back from the bathroom when he got lightheaded and had a syncopal event. He states that there is been no sick contacts and he denied any palpitations or chest pain prior to the event. However with his persistent fatigue and now the new onset syncope he presents for evaluation [facility] Medical History Back pain due to injury Chronic pain COPD (chronic obstructive pulmonary disease) Current use of insulin Depression Diabetes Esophageal candidiasis High cholesterol History of stress test Hyperlipidemia Hypertension Injury of head and neck Myocardial infarct Non-smoker Restless legs Sleep apnea Home Medications metformin 500 mg tablet,extended release 24 hr 500 mg PO BID diabetes 05/02/19 [History Last Taken 03/18/22] fluconazole 200 mg tablet (Diflucan) 200 mg PO DAILY antibiotic 03/19/22 [History Last Taken 03/18/22] glipizide 5 mg tablet 5 mg PO BID diabetes 03/19/22 [History Last Taken 03/18/22] insulin glargine 100 unit/mL (3 mL) subcutaneous pen (Lantus Solostar U-100 Insulin) 10 unit subcut BID diabetes 03/19/22 [History Last Taken 03/18/22] ondansetron 4 mg disintegrating tablet 4 mg PO Q8H PRN nausea and vomiting #10 tabs 04/26/22 [Rx Last Taken Unknown] permethrin 5 % topical cream (Elimite) 1 applic topical Q14D 2 doses #60 grams 05/26/22 [Rx Last Taken Unknown] prednisone 10 mg tablet 10 mg PO DAILY #30 tabs 05/26/22 [Rx Last Taken Unknown] tramadol 50 mg tablet 50 mg PO Q4H PRN PRN Pain 2 days #12 tabs 07/03/22 [Rx Last Taken Unknown] dicyclomine 20 mg tablet 20 mg PO TID PRN abdominal cramping #20 tabs 08/07/22 [Rx Last Taken Unknown] ondansetron 4 mg disintegrating tablet 4 mg PO Q8H PRN nausea and vomiting #10 tabs 09/18/22 [Rx Last Taken Unknown] diphenoxylate-atropine 2.5 mg-0.025 mg tablet (Lomotil) 1 tab PO 4X/DAY PRN PRN diarrhea 5 days #20 tabs 10/30/22 [Rx Last Taken Unknown] Allergy/AdvReac Type Severity Reaction Status Date / Time diphenhydramine HCl Allergy Rash Verified 10/29/22 21:04 [From Benadryl] Penicillins Allergy Rash Verified 10/29/22 21:04 venom-honey bee Allergy Swelling Verified 10/29/22 21:04 [bee venom (honey bee)] Surgical History History of coronary artery stent placement Social History household members: none Smoking Status: Never smoker substance use type: does not use ROS ROS ED Constitutional Constitutional ED: Denies chills or fever(s) Eyes Eyes: Denies change in vision ENT ENT ED: Denies sore throat Cardiovascular Cardiovascular: Reports other Details: Positive syncope ; Denies chest pain or palpitations Respiratory/Chest Respiratory/Chest: Denies cough or dyspnea Gastrointestinal Gastrointestinal: Reports diarrhea and nausea; Denies abdominal pain or vomiting Genitourinary Genitourinary ED: Denies dysuria Musculoskeletal Musculoskeletal: Reports myalgias Integumentary Denies rash Neurologic Neurologic: Reports weakness; Denies headache(s) Hematologic/Lymphatic Hematologic/Lymphatic: Denies easy bleeding or easy bruising EXAM Physical Exam Const Vital Signs: 10/29/22 21:00 10/29/22 22:50 10/30/22 00:27 Temperature 97.3 F L Temperature Source Temporal Pulse Rate 84 73 82 Pulse Rate [Lying] Pulse Rate [Sitting (for 1 minute prior to obtaining)] Pulse Rate [Standing (for 1 minute prior to obtaining)] Respiratory Rate 18 18 16 Blood Pressure 111/74 101/68 144/88 H Blood Pressure [Lying] Blood Pressure [Sitting (for 1 minute prior to obtaining)] Blood Pressure [Standing (for 1 minute prior to obtaining)] Blood Pressure Mean 86 79 106 Blood Pressure Mean [Lying] Blood Pressure Mean [Sitting (for 1 minute prior to obtaining)] Blood Pressure Mean [Standing (for 1 minute prior to obtaining)] Pulse Ox 97 98 95 Oxygen Delivery Method Room Air Room Air Room Air 10/30/22 00:29 10/30/22 00:31 10/30/22 03:15 Temperature Temperature Source Pulse Rate 89 Pulse Rate [Lying] 78 Pulse Rate [Sitting (for 1 minute prior to obtaining)] 79 Pulse Rate [Standing (for 1 minute prior to obtaining)] 84 Respiratory Rate 18 Blood Pressure 111/81 H Blood Pressure [Lying] 131/89 H Blood Pressure [Sitting (for 1 minute prior to obtaining)] 103/71 Blood Pressure [Standing (for 1 minute prior to obtaining)] 101/73 Blood Pressure Mean 91 Blood Pressure Mean [Lying] 103 Blood Pressure Mean [Sitting (for 1 minute prior to obtaining)] 81 Blood Pressure Mean [Standing (for 1 minute prior to obtaining)] 82 Pulse Ox 94 Oxygen Delivery Method Room Air Room Air 10/30/22 04:24 Temperature Temperature Source Pulse Rate 79 Pulse Rate [Lying] Pulse Rate [Sitting (for 1 minute prior to obtaining)] Pulse Rate [Standing (for 1 minute prior to obtaining)] Respiratory Rate 16 Blood Pressure 115/71 Blood Pressure [Lying] Blood Pressure [Sitting (for 1 minute prior to obtaining)] Blood Pressure [Standing (for 1 minute prior to obtaining)] Blood Pressure Mean Blood Pressure Mean [Lying] Blood Pressure Mean [Sitting (for 1 minute prior to obtaining)] Blood Pressure Mean [Standing (for 1 minute prior to obtaining)] Pulse Ox 95 Oxygen Delivery Method Positive well nourished and well developed General Appearance ED: well developed HEENT Reports dry mucous membranes Mouth ED: Yes dry mucous membranes Mouth: dry mucous membranes Eyes PERRL and EOMs intact bilaterally General Eye ED: Negative for scleral icterus Neck supple Resp normal respiratory effort and clear to auscultation bilaterally Cardio regular rate and regular rhythm Rate: other Other Details: Radial pulses are +2-4 bilaterally are equal and symmetric GI non-tender and non-distended GI Narrative: Abdomen is soft nontender and nondistended with hyperactive bowel sounds there is no voluntary guarding or rigidity no pulsatile mass or fluid wave noted Auscultation: hyperactive bowel sounds Palpation: soft Extremity normal to inspection Neuro oriented x3 and CN's II-XII intact bilaterally Neuro Narrative: Cranial nerves II through XII are grossly intact there are no focal neurologic deficits. No pronator drift no dysmetria no truncal ataxia. NIH stroke scale score of 0 Sensorium / Orientation: alert Psych mental status grossly normal Skin no rashes or lesions noted Skin Narrative: Skin turgor is increased General Skin Exam: Negative for jaundice MDM MDM MDM Narrative Medical decision making narrative: Patient arrived to the ER with normal neurologic exam and no signs of trauma. Clinically he has increased skin turgor and dry mucous membranes and reported episodes of loose stool/diarrhea indicating dehydration as a cause of his symptoms. Basic blood work was obtained which revealed no clinically significant findings and head CT revealed no acute brain. His orthostatic vital signs were positive consistent with his dehydration and syncopal event. Patient was given 2 L of fluid and reported feeling better and therefore safe for discharge at this time Lab Data Attestation: I reviewed the patient's lab results. Labs: Laboratory Results - last 24 hr 10/29/22 10/29/22 10/29/22 23:26 23:26 23:26 WBC 11.5 H RBC 5.15 Hgb 14.8 Hct 42.2 MCV 81.9 MCH 28.7 MCHC 35.1 RDW Std Deviation 38.6 RDW Coeff of Manjinder 13.1 Plt Count 224 MPV 9.5 Immature Gran % (Auto) 0.300 Neut % (Auto) 75.0 H Lymph % (Auto) 16.2 L Falls % (Auto) 6.2 Eos % (Auto) 2.0 Baso % (Auto) 0.3 Absolute Neuts (auto) 8.6 H Absolute Lymphs (auto) 1.87 Nucleated RBC % 0 Sodium 136 Potassium 4.0 Chloride 104 Carbon Dioxide 26.0 Anion Gap 6 BUN 17 Creatinine 1.15 Estim Creat Clear Calc 83.93 Est GFR (MDRD) Af Amer 83 Est GFR (MDRD) Non-Af 68 BUN/Creatinine Ratio 14.8 Glucose 361 H Calcium 8.9 Magnesium 1.7 Radiography Diagnostic Testing: Clinical Impression(s) from Imaging Studies Brain CT 10/30/22 00:32 IMPRESSION: No acute abnormality. Electronically Signed: Lizette Grimaldo MD at 2:05 EST , Discharge Plan Triage Chief Complaint: Syncope ED Provider: Johann Lemons Dx/Rx/DC Orders Clinical Impression: Diarrhea, Dehydration, Orthostatic syncope Instructions: Dehydration, ED Hypotension, Orthostatic Prescriptions: New diphenoxylate-atropine [Lomotil] 2.5-0.025 mg tablet 1 tab PO 4X/DAY PRN PRN (Reason: diarrhea) 5 Days Qty: 20 0RF No Action metformin 500 MG tablet 500 mg PO BID Label Comments: diabetes insulin glargine [Lantus Solostar U-100 Insulin] 100 unit/mL (3 mL) Insulin Pen 10 unit SUBCUT BID fluconazole [Diflucan] 200 mg tablet 200 mg PO DAILY glipizide 5 mg tablet 5 mg PO BID Rx Instructions: Hold if glucose less than 130 mg/dl ondansetron 4 mg tablet,disintegrating 4 mg PO Q8H PRN (Reason: nausea and vomiting) Qty: 10 0RF permethrin [Elimite] 5 % cream 1 applic topical Q14D Qty: 60 0RF Rx Instructions: apply second treatment 14 days after first treatment if live lice remain prednisone 10 mg tablet 10 mg PO DAILY Qty: 30 0RF Rx Instructions: 4 pills by mouth days 1 through 3 3 pills by mouth days 4 through 6 2 pills by mouth days 7 through 9 1 pill by mouth days 10 through 12 tramadol 50 mg tablet 50 mg PO Q4H PRN PRN (Reason: Pain) 2 Days Qty: 12 0RF dicyclomine 20 mg tablet 20 mg PO TID PRN (Reason: abdominal cramping) Qty: 20 0RF ondansetron 4 mg tablet,disintegrating 4 mg PO Q8H PRN (Reason: nausea and vomiting) Qty: 10 0RF Primary Care Provider: Care Physician,No Primary Referrals: Shalini Mandel DO [Med Staff - [facility]] - Care Physician,No Primary [Primary Care Provider] - Activity Restrictions/Additional Instructions: Please use the Lomotil as directed to help control any further bouts of diarrhea and keep yourself well-hydrated. If you have any further concerns please return to the hospital for repeat evaluation Disposition Disposition: Home, Self Care Discharge Date/Time: 10/30/22 04:25
[2022-10-30 04:24] VITALS: BP 115/71; PULSE 79; RESP 16; O2SAT 95
== END 2022-10-30 04:25 | disposition home or self-care (01) ==
PROVIDERS: Emergency Provider Emergency Medicine; Visit Provider Emergency Medicine
DX: R55 Syncope and collapse (principal); J44.9 Chronic obstructive pulmonary disease, unspecified; E11.9 Type 2 diabetes mellitus without complications; E86.0 Dehydration; R19.7 Diarrhea, unspecified; I10 Essential (primary) hypertension; E78.5 Hyperlipidemia, unspecified
CPT/HCPCS: 70450; 80048; 83735; 85025; 87428; 93005; 99284; J7030; A4216

== ENCOUNTER 2022-11-25 13:07 | Emergency (ER) | payer MEDICAID, SELFPAY ==
[2022-11-25 13:07] VITALS: BP 137/88; PULSE 76; RESP 16; TEMP 36.4; O2SAT 98; BMI 27.7
--- NOTE | 2022-11-25 13:25 | EDS_ITS ---
HPI History of Present Illness Chief Complaint: Nausea/Vomiting/Diarrhea Detail of Chief Complaint: Nausea, vomiting diarrhea Informant: patient Onset/Context/Timing Onset: Today (0800) Context: Sudden Onset Timing: Intermittent Quality: Nausea, vomiting and diarrhea with mild cramping abdominal pain Location: Generalized Current Severity: Mild Maximum Severity: Moderate Worsened by: Vomiting and diarrhea Relieved by: Nothing Associated Symptoms Associated Symptoms: Thirst, dry mouth, lightheadedness Narrative Narrative: Patient is 62-year-old male with history of type 2 diabetes who presents with nausea, vomiting diarrhea that started this morning. He denies ill contacts. He denies fever, chills night sweats. He denies ocular, visual auditory symptoms. He denies upper respiratory infectious symptoms. He denies chest pain, dyspnea, [place] exertion, orthopnea PND. He does endorse crampy diffuse abdominal pain with vomiting diarrhea. He denies hematemesis or coffee grounds in emesis. He states it was green. He has had 6 watery loose stools. He did not note blood or mucus. Water is brown in color. Prior similar symptoms: Yes Recent Illness/Hospitalization: No PFSH PFSH Medical History Back pain due to injury Chronic pain COPD (chronic obstructive pulmonary disease) Current use of insulin Depression Diabetes Esophageal candidiasis High cholesterol History of stress test Hyperlipidemia Hypertension Injury of head and neck Myocardial infarct Non-smoker Restless legs Sleep apnea Home Medications metformin 500 mg tablet,extended release 24 hr 500 mg PO BID diabetes 05/02/19 [History Last Taken 03/18/22] fluconazole 200 mg tablet (Diflucan) 200 mg PO DAILY antibiotic 03/19/22 [History Last Taken 03/18/22] glipizide 5 mg tablet 5 mg PO BID diabetes 03/19/22 [History Last Taken 03/18/22] insulin glargine 100 unit/mL (3 mL) subcutaneous pen (Lantus Solostar U-100 Insulin) 10 unit subcut BID diabetes 03/19/22 [History Last Taken 03/18/22] ondansetron 4 mg disintegrating tablet 4 mg PO Q8H PRN nausea and vomiting #10 tabs 04/26/22 [Rx Last Taken Unknown] permethrin 5 % topical cream (Elimite) 1 applic topical Q14D 2 doses #60 grams 05/26/22 [Rx Last Taken Unknown] prednisone 10 mg tablet 10 mg PO DAILY #30 tabs 05/26/22 [Rx Last Taken Unknown] tramadol 50 mg tablet 50 mg PO Q4H PRN PRN Pain 2 days #12 tabs 07/03/22 [Rx Last Taken Unknown] dicyclomine 20 mg tablet 20 mg PO TID PRN abdominal cramping #20 tabs 08/07/22 [Rx Last Taken Unknown] ondansetron 4 mg disintegrating tablet 4 mg PO Q8H PRN nausea and vomiting #10 tabs 09/18/22 [Rx Last Taken Unknown] diphenoxylate-atropine 2.5 mg-0.025 mg tablet (Lomotil) 1 tab PO 4X/DAY PRN PRN diarrhea 5 days #20 tabs 10/30/22 [Rx Last Taken Unknown] Allergy/AdvReac Type Severity Reaction Status Date / Time diphenhydramine HCl Allergy Rash Verified 11/25/22 13:09 [From Benadryl] Penicillins Allergy Rash Verified 11/25/22 13:09 venom-honey bee Allergy Swelling Verified 11/25/22 13:09 [bee venom (honey bee)] Surgical History History of coronary artery stent placement Social History household members: none Smoking Status: Never smoker substance use type: does not use ROS ROS ED Constitutional Constitutional ED: Denies chills, fever(s), subjective or sweats Eyes Eyes: Denies blurry vision, change in vision or diplopia ENT ENT ED: Denies ear pain, rhinorrhea or sore throat Cardiovascular Cardiovascular: Denies chest pain, orthopnea or palpitations Respiratory/Chest Respiratory/Chest: Denies cough, dyspnea, dyspnea on exertion or orthopnea Gastrointestinal Gastrointestinal: Reports abdominal pain, diarrhea, nausea and vomiting; Denies constipation or melena Genitourinary Genitourinary ED: Denies dysuria, hematuria or urinary frequency Musculoskeletal Musculoskeletal: Denies arthralgias, back pain, myalgias or neck pain Integumentary Denies abscess, Abrasions or rash Neurologic Neurologic: Reports weakness; Denies paresthesias Psychiatric Psychiatric: Denies anxiety or depression Hematologic/Lymphatic Hematologic/Lymphatic: Denies easy bleeding or easy bruising EXAM Physical Exam Const Vital Signs: 11/25/22 13:07 Temperature 97.6 F L Temperature Source Temporal Pulse Rate 76 Respiratory Rate 16 Blood Pressure 137/88 H Blood Pressure Mean 104 Pulse Ox 98 Oxygen Delivery Method Room Air Positive well nourished, well developed and unkempt Constitutional Narrative: Patient appears ill. General Appearance ED: unkempt, well developed and pallor; Negative for cyanotic or diaphoretic HEENT Reports dry mucous membranes HEENT Narrative: Head is atraumatic normocephalic. Ears normal. Nares patent. Uvula midline. No deviation with protrusion. Mouth ED: Yes dry mucous membranes Mouth: dry mucous membranes Eyes PERRL and EOMs intact bilaterally General Eye ED: Negative for pale conjunctiva or scleral icterus Neck no lymphadenopathy, supple and no JVD Chest Wall inspection of chest normal and palpation of chest normal Resp clear to auscultation bilaterally Cardio regular rate, regular rhythm, S1 normal heart sound, S2 normal heart sound and no murmurs GI Negative for hepatosplenomegaly GI Narrative: Minimal bilateral tenderness. There is no guarding. Inspection: Negative for abdominal distention Auscultation: hypoactive bowel sounds Palpation: soft; Negative for guarding, splenomegaly, mass or rebound tenderness present Back/Spine no CVA tenderness Cervical Spine: Negative for cervical spine tenderness Thoracic Spine / Upper Back: Negative for thoracic spinal tenderness Extremity Extremity Narrative: Stigmata of peripheral arterial disease Neuro oriented x3 and CN's II-XII intact bilaterally Psych Appearance: unkempt Skin no rashes or lesions noted, no wounds and No skin turgor normal General Skin Exam: pallor; Negative for elasticity normal or jaundice MDM MDM MDM Narrative Medical decision making narrative: Patient was admitted for similar presentation in December 2021. The plan was as follows: PLAN: ? ? ? #Acute diarrhea * hydrate with iVF * CT abdomen showed distension of the stomach and first and second portion of the duodenum down to the junction with the third portion with suspicion for duodenal diverticulum * Keep on only clear liquids for now. * Consult GI as ED spoke to Dr. Obregon and his? plan is to scope patient tomorrow. * stool samples sent to lab for culture and other workup * plac Patient has a benign abdomen. There is no indication for CT. Will treat with IV fluids since clinically is dehydrated. Because he is diabetic BG T was obtained assess glucose. Basic metabolic panel was obtained to assess for hypokalemia, renal function as well as CO2 anion gap since he is diabetic. Patient was treated with Zofran for his nausea and Bentyl for his cramping pain. Lab Data Attestation: I reviewed the patient's lab results. Lab results narrative: Glucose is elevated 429 with a normal CO2 and anion gap. There is no evidence for DKA. Electrolytes are unremarkable including potassium. We will treat patient's hyperglycemia with insulin. Suspect his blood sugar is elevated due to to the fact that he has an infection and per old records he is not compliant with diet Labs: Laboratory Results - last 24 hr 11/25/22 11/25/22 13:50 14:27 Sodium 136 Potassium 4.0 Chloride 102 Carbon Dioxide 28.0 Anion Gap 6 BUN 11 Creatinine 0.97 Estim Creat Clear Calc 99.51 Est GFR (MDRD) Af Amer 101 Est GFR (MDRD) Non-Af 83 BUN/Creatinine Ratio 11.3 Glucose 429 H Calcium 9.0 POC Glucose 380 H Treatment and Re-Evaluation Narrative: Patient tolerated p.o. fluids. He does have type 2 diabetes but does require insulin. Will stress importance of taking his meds, compliance with diet and follow-up with his primary care physician. Discharge Plan Triage Chief Complaint: Nausea/Vomiting/Diarrhea ED Provider: Ar Calle Dx/Rx/DC Orders Clinical Impression: Abdominal pain, vomiting, and diarrhea, Essential hypertension, History of ETOH abuse, Hyperglycemia due to type 2 diabetes mellitus, Acute dehydration, History of coronary artery disease Instructions: ED Gastroenteritis, Viral (Adult) Prescriptions: No Action metformin 500 MG tablet 500 mg PO BID Label Comments: diabetes insulin glargine [Lantus Solostar U-100 Insulin] 100 unit/mL (3 mL) Insulin Pen 10 unit SUBCUT BID fluconazole [Diflucan] 200 mg tablet 200 mg PO DAILY glipizide 5 mg tablet 5 mg PO BID Rx Instructions: Hold if glucose less than 130 mg/dl ondansetron 4 mg tablet,disintegrating 4 mg PO Q8H PRN (Reason: nausea and vomiting) Qty: 10 0RF permethrin [Elimite] 5 % cream 1 applic topical Q14D Qty: 60 0RF Rx Instructions: apply second treatment 14 days after first treatment if live lice remain prednisone 10 mg tablet 10 mg PO DAILY Qty: 30 0RF Rx Instructions: 4 pills by mouth days 1 through 3 3 pills by mouth days 4 through 6 2 pills by mouth days 7 through 9 1 pill by mouth days 10 through 12 tramadol 50 mg tablet 50 mg PO Q4H PRN PRN (Reason: Pain) 2 Days Qty: 12 0RF dicyclomine 20 mg tablet 20 mg PO TID PRN (Reason: abdominal cramping) Qty: 20 0RF ondansetron 4 mg tablet,disintegrating 4 mg PO Q8H PRN (Reason: nausea and vomiting) Qty: 10 0RF diphenoxylate-atropine [Lomotil] 2.5-0.025 mg tablet 1 tab PO 4X/DAY PRN PRN (Reason: diarrhea) 5 Days Qty: 20 0RF Primary Care Provider: Care Physician,No Primary Referrals: Care Physician,No Primary [Primary Care Provider] - Doctor,Your [Non-Staff] - 3-5 Days if not improving Activity Restrictions/Additional Instructions: 1. The name of your doctor is located on your insurance card issued to you from [facility] 2. Increase fluid intake today 3. You need to take your medication as prescribed and you need to be compliant with your diet Disposition Disposition: Home, Self Care
[2022-11-25] MEDS: 0.9% Normal Saline 1,000 ML 1000 ML IV ×2 (14:05→14:45)
[2022-11-25] MEDS: Ondansetron 4 MG/2 ML Vial IV (14:05)
[2022-11-25] MEDS: Dicyclomine 10 MG Capsule 20 MG PO (14:05)
[2022-11-25 14:07] LABS: Anion Gap 6 (5-15); BUN 11 mg/dL (7-18); BUN/Creat Ratio 11.3 RATIO (10-20); Chloride 102 mmol/L (98-107); Creatinine, Serum 0.97 mg/dL (0.70-1.30); EST Glomerular Filtration Rate 83 mL/min (>60); Est Glom Filt Rate - Afr Amer 101 mL/min (>60); Estimated Creatinine Clearance 99.51 ml/min; Glucose 429 mg/dL (74-106); Sodium Level 136 mmol/L (136-145)
[2022-11-25 14:45] LABS: Bedside Glucose 380 mg/dL (74-106)
[2022-11-25] MEDS: Insulin Lispro 100 UNIT/ML INSULN.PEN 8 UNIT SC (14:45)
[2022-11-25 15:13] VITALS: BP 137/69; PULSE 81; RESP 16; O2SAT 97
== END 2022-11-25 15:14 | disposition home or self-care (01) ==
PROVIDERS: Emergency Provider Emergency Medicine; Visit Provider Emergency Medicine
DX: R10.9 Unspecified abdominal pain (principal); E11.65 Type 2 diabetes mellitus with hyperglycemia; R11.2 Nausea with vomiting, unspecified; I10 Essential (primary) hypertension; E86.0 Dehydration; I25.10 Atherosclerotic heart disease of native coronary artery without angina pectoris; I25.2 Old myocardial infarction; G47.30 Sleep apnea, unspecified; Z95.5 Presence of coronary angioplasty implant and graft
CPT/HCPCS: 80048; 82962; 96361; 96374; 99284; J7030; J2405

== ENCOUNTER 2022-12-10 09:46 | Emergency (ER) | payer MEDICAID, SELFPAY ==
[2022-12-10 09:48] VITALS: BP 109/73; PULSE 74; RESP 18; TEMP 36.6; O2SAT 99; BMI 27.8
--- NOTE | 2022-12-10 10:00 | EKG12_ITS ---
Test Reason : GENERAL Blood Pressure : / mmHG Vent. Rate : 073 BPM Atrial Rate : 073 BPM P-R Int : 180 ms QRS Dur : 102 ms QT Int : 402 ms P-R-T Axes : 065 -54 038 degrees QTc Int : 442 ms Normal sinus rhythm Incomplete right bundle branch block Left anterior fascicular block Abnormal ECG Confirmed by TESSA TRACY, MENDY ([id number]), news editor JADEN HERNANDEZ ([id number]) on 12/13/2022 12:39:55 PM Referred By: Confirmed By:MENDY ZARATE MD
[2022-12-10] MEDS: Ondansetron 4 MG/2 ML Vial IV (10:04)
[2022-12-10 10:13] LABS: Absolute Lymphocyte Count 1.79 X10^3/uL (0.83-4.51); Basophil# 0.04 X10^3/uL; Basophil% 0.5 % (0-1); Eosinophil# 0.25 X10^3/uL; Eosinophils% 3.3 % (0-5); Hematocrit 43.4 % (40-54); Hemoglobin 15.1 g/dL (13.0-16.5); Lymphocyte # 1.79 X10^3/ul (0.83-4.51); Lymphocyte % 23.4 % (19-41); Mean Corp Hgb Conc 34.8 g/dL (32-36); Mean Corpuscular Hgb 28.4 pg (27.0-32.0); Mean Corpuscular Volume 81.7 fL (80-94); Mean Platelet Vol. 9.3 fl (6.2-12.0); Monocyte# 0.56 X10^3/uL; Monocyte% 7.3 % (0-10); NRBC Flagged by Analyzer 0 % (0-5); Neutrophil # 4.97 X10^3/uL (2.7-7.7); Neutrophil % 64.8 % (47-70); Platelet Count 251 K/mm3 (150-450); RBC Distribution Width CV 13.3 % (11.6-14.6); RBC Distribution Width SD 39.1 fl (35.1-43.9); Red Blood Count 5.31 M/mm3 (4.6-6.2); White Blood Count 7.7 K/mm3 (4.4-11.0)
--- NOTE | 2022-12-10 10:14 | EX.ED.DYSGE1 ---
HPI History of Present Illness Chief Complaint: Weakness Informant: patient and family Narrative Narrative: Presents by private vehicle here with his [id number] for evaluation. Patient was with his [id number] at a doctor's office when he developed weakness lightheaded symptoms and nausea. There is no chest pains or shortness of breath. He is a diabetic who has been noncompliant with his medications. He states he is have a new PCP with appointment upcoming. Reports polyuria and polydipsia. Denies fevers or back pain. Denies chest or abdominal pain. He is concerned his sugars are elevated. Smoker with a chronic cough. Prior similar symptoms: Yes [facility] Medical History Back pain due to injury Chronic pain COPD (chronic obstructive pulmonary disease) Current use of insulin Depression Diabetes Esophageal candidiasis High cholesterol History of stress test Hyperlipidemia Hypertension Injury of head and neck Myocardial infarct Non-smoker Restless legs Sleep apnea Home Medications metformin 500 mg tablet,extended release 24 hr 500 mg PO BID diabetes 05/02/19 [History Last Taken 03/18/22] fluconazole 200 mg tablet (Diflucan) 200 mg PO DAILY antibiotic 03/19/22 [History Last Taken 03/18/22] glipizide 5 mg tablet 5 mg PO BID diabetes 03/19/22 [History Last Taken 03/18/22] insulin glargine 100 unit/mL (3 mL) subcutaneous pen (Lantus Solostar U-100 Insulin) 10 unit subcut BID diabetes 03/19/22 [History Last Taken 03/18/22] ondansetron 4 mg disintegrating tablet 4 mg PO Q8H PRN nausea and vomiting #10 tabs 04/26/22 [Rx Last Taken Unknown] permethrin 5 % topical cream (Elimite) 1 applic topical Q14D 2 doses #60 grams 05/26/22 [Rx Last Taken Unknown] prednisone 10 mg tablet 10 mg PO DAILY #30 tabs 05/26/22 [Rx Last Taken Unknown] tramadol 50 mg tablet 50 mg PO Q4H PRN PRN Pain 2 days #12 tabs 07/03/22 [Rx Last Taken Unknown] dicyclomine 20 mg tablet 20 mg PO TID PRN abdominal cramping #20 tabs 08/07/22 [Rx Last Taken Unknown] ondansetron 4 mg disintegrating tablet 4 mg PO Q8H PRN nausea and vomiting #10 tabs 09/18/22 [Rx Last Taken Unknown] diphenoxylate-atropine 2.5 mg-0.025 mg tablet (Lomotil) 1 tab PO 4X/DAY PRN PRN diarrhea 5 days #20 tabs 10/30/22 [Rx Last Taken Unknown] Allergy/AdvReac Type Severity Reaction Status Date / Time diphenhydramine HCl Allergy Rash Verified 12/10/22 09:49 [From Benadryl] Penicillins Allergy Rash Verified 12/10/22 09:49 venom-honey bee Allergy Swelling Verified 12/10/22 09:49 [bee venom (honey bee)] Surgical History History of coronary artery stent placement Social History household members: none Smoking Status: Never smoker substance use type: does not use ROS ROS ED Constitutional Constitutional ED: Denies chills, fever(s) or sweats Eyes Eyes: Denies change in vision ENT ENT ED: Denies dysphagia or sore throat Cardiovascular Cardiovascular: Denies chest pain, leg edema, palpitations or racing heartbeat Respiratory/Chest Respiratory/Chest: Reports cough; Denies dyspnea or dyspnea on exertion Gastrointestinal Gastrointestinal: Reports nausea; Denies abdominal pain, diarrhea or vomiting Genitourinary Genitourinary ED: Denies dysuria, hematuria or urinary frequency Musculoskeletal Musculoskeletal: Denies back pain, extremity pain or neck pain Integumentary Denies rash or wounds Neurologic Neurologic: Denies headache(s), paresthesias or weakness Endocrine Endocrinology: Reports polydipsia and polyuria EXAM Physical Exam Const Vital Signs: 12/10/22 09:48 12/10/22 09:57 12/10/22 12:37 Temperature 97.9 F Temperature Source Temporal Pulse Rate 74 78 Respiratory Rate 18 18 Respiratory Effort Normal Non-Labored Blood Pressure 109/73 Blood Pressure Mean 85 Pulse Ox 99 Oxygen Delivery Method Room Air Positive well nourished and well developed General Appearance ED: well developed and NAD HEENT Reports dry mucous membranes normocephalic and atraumatic Mouth ED: Yes dry mucous membranes Mouth: dry mucous membranes Eyes PERRL, EOMs intact bilaterally and conjunctivae normal General Eye ED: Yes normal appearance of both eyes Neck no lymphadenopathy and supple General: Negative for tenderness Chest Wall Chest: Negative for tenderness Resp normal respiratory effort and normal air movement Effort and Inspection: symmetric chest movement; Negative for respiratory distress Cardio regular rate, regular rhythm and no murmurs Peripheral Pulses: pulses 2+ throughout GI normal to inspection, nondistended, normoactive bowel sounds and non-tender Palpation: Negative for guarding or rebound tenderness present Back/Spine no CVA tenderness and no thoracic nor lumbar tenderness Extremity normal to inspection General Extremety ED: Negative for edema or tenderness General Extremity: Negative for edema Neuro oriented x3, CN's II-XII intact bilaterally and no sensory deficits noted Sensorium / Orientation: awake and alert Skin no rashes or lesions noted and no wounds MDM MDM MDM Narrative Medical decision making narrative: Interventions / MDM: Differential diagnosis: Diabetic hyperglycemia, DKA, cardiac dysrhythmia, UTI Diagnosis considered but do not suspect: CVA, no focal deficits, My EKG interpretation: Sinus rhythm 73, no ST or T wave changes, intraventricular delay with left anterior fascicular block, similar to September 2022. Imaging independently reviewed and interpreted by myself: N/A External documents reviewed: N/A Test considered but not ordered:N/A ED course: EKG was normal normal clinical slight dry mucosal membranes. He is given fluids and Zofran. Labs hemoglobin 15.1 creatinine 1.02. His glucose 250 normal anion gap. Therefore no DKA. He is hyperglycemia with polyuria. Urine was negative for infection. Clinically was feeling better on reevaluation. He ambulated to the restroom with no return of symptoms. He reports he has antiemetics at home. He is followed by Dr. Hassan. He will call for appointment outpatient evaluation and restart of his medications. Return precautions. All questions were answered. Re-evaluation: stable and improved Disposition discussed with patient/family/significant other: Patient and [id number] Case discussed with consulting clinician: N/A Lab Data Attestation: I reviewed the patient's lab results. Labs: Laboratory Results - last 24 hr 12/10/22 12/10/22 12/10/22 09:54 09:55 09:55 WBC 7.7 RBC 5.31 Hgb 15.1 Hct 43.4 MCV 81.7 MCH 28.4 MCHC 34.8 RDW Std Deviation 39.1 RDW Coeff of Manjinder 13.3 Plt Count 251 MPV 9.3 Immature Gran % (Auto) 0.700 Neut % (Auto) 64.8 Lymph % (Auto) 23.4 [place] % (Auto) 7.3 Eos % (Auto) 3.3 Baso % (Auto) 0.5 Absolute Neuts (auto) 5.0 Absolute Lymphs (auto) 1.79 Nucleated RBC % 0 Sodium 141 Potassium 3.7 Chloride 106 Carbon Dioxide 30.0 Anion Gap 5 BUN 10 Creatinine 1.02 Estim Creat Clear Calc 94.63 Est GFR (MDRD) Af Amer 95 Est GFR (MDRD) Non-Af 79 BUN/Creatinine Ratio 9.8 L Glucose 250 H Calcium 9.3 Urine Color Urine Clarity Urine pH Ur Specific [place] Urine Protein Urine Glucose (UA) Urine Ketones Urine Occult Blood Urine Nitrite Urine Bilirubin Urine Urobilinogen Ur Leukocyte Esterase Urine RBC Urine WBC Ur Squamous Epith Cells Urine Bacteria Urine Mucus POC Glucose 261 H 12/10/22 11:40 WBC RBC Hgb Hct MCV MCH MCHC RDW Std Deviation RDW Coeff of Manjinder Plt Count MPV Immature Gran % (Auto) Neut % (Auto) Lymph % (Auto) [place] % (Auto) Eos % (Auto) Baso % (Auto) Absolute Neuts (auto) Absolute Lymphs (auto) Nucleated RBC % Sodium Potassium Chloride Carbon Dioxide Anion Gap BUN Creatinine Estim Creat Clear Calc Est GFR (MDRD) Af Amer Est GFR (MDRD) Non-Af BUN/Creatinine Ratio Glucose Calcium Urine Color Yellow Urine Clarity Sl. Cloudy Urine pH 6.0 Ur Specific [place] 1.015 Urine Protein 15 H Urine Glucose (UA) 1000 H Urine Ketones Negative Urine Occult Blood Negative Urine Nitrite Negative Urine Bilirubin Negative Urine Urobilinogen Normal Ur Leukocyte Esterase Negative Urine RBC 0 SEEN Urine WBC 0 SEEN Ur Squamous Epith Cells 0-5 SEEN Urine Bacteria 0 SEEN Urine Mucus 0 SEEN POC Glucose EKG Initial EKG: Attestation: I personally reviewed and interpreted this EKG as follows: Comments: Sinus rhythm 73, no ST or T wave changes, intraventricular delay with left anterior fascicular block, similar to September 2022. Discharge Plan Triage Chief Complaint: Weakness ED Provider: Panchito Castillo Dx/Rx/DC Orders Clinical Impression: Near syncope, DM (diabetes mellitus), Blood glucose elevated, Non-compliance Instructions: Diabetes Support, ED Fainting, Uncertain Cause Prescriptions: No Action metformin 500 MG tablet 500 mg PO BID Label Comments: diabetes insulin glargine [Lantus Solostar U-100 Insulin] 100 unit/mL (3 mL) Insulin Pen 10 unit SUBCUT BID fluconazole [Diflucan] 200 mg tablet 200 mg PO DAILY glipizide 5 mg tablet 5 mg PO BID Rx Instructions: Hold if glucose less than 130 mg/dl ondansetron 4 mg tablet,disintegrating 4 mg PO Q8H PRN (Reason: nausea and vomiting) Qty: 10 0RF permethrin [Elimite] 5 % cream 1 applic topical Q14D Qty: 60 0RF Rx Instructions: apply second treatment 14 days after first treatment if live lice remain prednisone 10 mg tablet 10 mg PO DAILY Qty: 30 0RF Rx Instructions: 4 pills by mouth days 1 through 3 3 pills by mouth days 4 through 6 2 pills by mouth days 7 through 9 1 pill by mouth days 10 through 12 tramadol 50 mg tablet 50 mg PO Q4H PRN PRN (Reason: Pain) 2 Days Qty: 12 0RF dicyclomine 20 mg tablet 20 mg PO TID PRN (Reason: abdominal cramping) Qty: 20 0RF ondansetron 4 mg tablet,disintegrating 4 mg PO Q8H PRN (Reason: nausea and vomiting) Qty: 10 0RF diphenoxylate-atropine [Lomotil] 2.5-0.025 mg tablet 1 tab PO 4X/DAY PRN PRN (Reason: diarrhea) 5 Days Qty: 20 0RF Primary Care Provider: Iván Hassan Referrals: Iván Hassan MD [Primary Care Provider] - 3-5 Days Care Physician,No Primary [Non-Staff] - Activity Restrictions/Additional Instructions: Blood glucose 250. Labs stable EKG normal. Continue oral fluids. Follow-up with your doctor to restart heart your medications. Disposition Disposition: Home, Self Care Discharge Date/Time: 12/10/22 12:37
[2022-12-10 10:21] LABS: Bedside Glucose 261 mg/dL (74-106)
[2022-12-10 10:24] LABS: Anion Gap 5 (5-15); BUN 10 mg/dL (7-18); BUN/Creat Ratio 9.8 RATIO (10-20); Calcium,Total 9.3 mg/dL (8.5-10.1); Chloride 106 mmol/L (98-107); Creatinine, Serum 1.02 mg/dL (0.70-1.30); EST Glomerular Filtration Rate 79 mL/min (>60); Est Glom Filt Rate - Afr Amer 95 mL/min (>60); Estimated Creatinine Clearance 94.63 ml/min; Glucose 250 mg/dL (74-106); Potassium 3.7 mmol/L (3.5-5.1); Sodium Level 141 mmol/L (136-145)
[2022-12-10 11:49] LABS: Bacteria 0 SEEN /hpf (None Seen); Mucous, Urine 0 SEEN /hpf (<or=2+); Red Blood Cells-Urine 0 SEEN /hpf (0-5); White Blood Cells 0 SEEN /hpf (0-5)
[2022-12-10 11:51] LABS: Color, Urine Yellow (Yellow); Glucose, Dipstick 1000 mg/dl (Normal); Ketone-Dipstick Negative (Negative); Leukocyte Esterase-Dipstick Negative /ul (Negative); Nitrite-Dipstick Negative (Negative); Occult Blood-Urine Negative /ul (Negative); Protein-Dipstick 15 mg/dl (Negative); Specific Gravity, Urine 1.015 (1.002-1.030); Urine Bilirubin Dipstick Negative (Negative); Urine Clarity Sl. Cloudy (Clear); Urine Urobilinogen Normal (Normal)
[2022-12-10 11:57] LABS: Squamous Epithelial Cells - UA 0-5 SEEN /hpf (0-5)
[2022-12-10 12:37] VITALS: PULSE 78; RESP 18
== END 2022-12-10 12:37 | disposition home or self-care (01) ==
PROVIDERS: Emergency Provider Emergency Medicine; PCP Family Medicine; Visit Provider Emergency Medicine
DX: R55 Syncope and collapse (principal); E11.65 Type 2 diabetes mellitus with hyperglycemia; G47.30 Sleep apnea, unspecified; I25.2 Old myocardial infarction; Z95.5 Presence of coronary angioplasty implant and graft; Z91.199 Patient's noncompliance with other medical treatment and regimen due to unspecified reason
CPT/HCPCS: 80048; 81001; 82962; 85025; 93005; 96361; 96374; 99284; J7030; A4216; J2405

== ENCOUNTER 2022-12-11 16:12 | Emergency (ER) | payer MEDICAID, SELFPAY ==
[2022-12-11 16:13] VITALS: BP 78/51; PULSE 75; RESP 18; TEMP 35.8; O2SAT 96; BMI 27.7
--- NOTE | 2022-12-11 16:39 | EKG12_ITS ---
Test Reason : GNERAL WEAKNESS Blood Pressure : / mmHG Vent. Rate : 078 BPM Atrial Rate : 078 BPM P-R Int : 194 ms QRS Dur : 090 ms QT Int : 404 ms P-R-T Axes : 050 -56 012 degrees QTc Int : 460 ms Sinus rhythm with Premature atrial complexes with Aberrant conduction Left anterior fascicular block Abnormal ECG Confirmed by TESSA TRACY, MENDY ([id number]), film and video editor JADEN HERNANDEZ ([id number]) on 12/13/2022 12:34:46 PM Referred By: Confirmed By:MENDY ZARATE MD
--- NOTE | 2022-12-11 16:48 | EDS_ITS ---
HPI History of Present Illness Chief Complaint: Weakness Narrative Narrative: 62-year-old male presenting with weakness. Patient is accompanied by his brother who is in the room reading a newspaper. Initially neither one of them would speak to me. The patient was just sitting there holding his head in his hands. Eventually, the patient states he does not he does not feel well. he states that his whole upper body hurts which includes his chest, arms, head, neck. He states this started about 3 hours ago. He and his brother were wandering downtown because he wanted to go for a ride. Patient had 2 egg rolls prior to the symptom onset. He does not have any nausea or vomiting. Patient's brother eventually states that he has not had health care in many years. He does not take his blood pressure medicine or diabetic medicine. He is supposed to see Dr. Hassan but has not made an appointment. [facility] Medical History Back pain due to injury Chronic pain COPD (chronic obstructive pulmonary disease) Current use of insulin Depression Diabetes Esophageal candidiasis High cholesterol History of stress test Hyperlipidemia Hypertension Injury of head and neck Myocardial infarct Non-smoker Restless legs Sleep apnea Home Medications metformin 500 mg tablet,extended release 24 hr 500 mg PO BID diabetes 05/02/19 [History Last Taken 03/18/22] fluconazole 200 mg tablet (Diflucan) 200 mg PO DAILY antibiotic 03/19/22 [History Last Taken 03/18/22] glipizide 5 mg tablet 5 mg PO BID diabetes 03/19/22 [History Last Taken 03/18/22] insulin glargine 100 unit/mL (3 mL) subcutaneous pen (Lantus Solostar U-100 Insulin) 10 unit subcut BID diabetes 03/19/22 [History Last Taken 03/18/22] ondansetron 4 mg disintegrating tablet 4 mg PO Q8H PRN nausea and vomiting #10 tabs 04/26/22 [Rx Last Taken Unknown] permethrin 5 % topical cream (Elimite) 1 applic topical Q14D 2 doses #60 grams 05/26/22 [Rx Last Taken Unknown] prednisone 10 mg tablet 10 mg PO DAILY #30 tabs 05/26/22 [Rx Last Taken Unknown] tramadol 50 mg tablet 50 mg PO Q4H PRN PRN Pain 2 days #12 tabs 07/03/22 [Rx Last Taken Unknown] dicyclomine 20 mg tablet 20 mg PO TID PRN abdominal cramping #20 tabs 08/07/22 [Rx Last Taken Unknown] ondansetron 4 mg disintegrating tablet 4 mg PO Q8H PRN nausea and vomiting #10 tabs 09/18/22 [Rx Last Taken Unknown] diphenoxylate-atropine 2.5 mg-0.025 mg tablet (Lomotil) 1 tab PO 4X/DAY PRN PRN diarrhea 5 days #20 tabs 10/30/22 [Rx Last Taken Unknown] glipizide 5 mg tablet 5 mg PO DAILY #60 tabs 12/11/22 [Rx Last Taken Unknown] insulin glargine 100 unit/mL subcutaneous solution (Lantus U-100 Insulin) 10 unit (0.1 mL) subcut QPM #10 mL 12/11/22 [Rx Last Taken Unknown] metformin 500 mg tablet 500 mg PO DAILY #60 tabs 12/11/22 [Rx Last Taken Unknown] Allergy/AdvReac Type Severity Reaction Status Date / Time diphenhydramine HCl Allergy Rash Verified 12/11/22 16:13 [From Benadryl] Penicillins Allergy Rash Verified 12/11/22 16:13 venom-honey bee Allergy Swelling Verified 12/11/22 16:13 [bee venom (honey bee)] Surgical History History of coronary artery stent placement Social History household members: none Smoking Status: Never smoker substance use type: does not use ROS ROS ED Review of Systems ROS Unobtainable: Denies due to encephalopathy or due to endotracheal tube Constitutional Constitutional ED: Denies chills or fever(s) Eyes Eyes: Denies change in vision or diplopia ENT ENT ED: Denies ear pain or rhinorrhea Cardiovascular Cardiovascular: Denies chest pain Respiratory/Chest Respiratory/Chest: Denies cough or dyspnea Gastrointestinal Gastrointestinal: Denies abdominal pain Genitourinary Genitourinary ED: Denies dysuria Musculoskeletal Musculoskeletal: Reports neck pain; Denies arthralgias Integumentary Denies abscess or Abrasions Neurologic Neurologic: Reports headache(s); Denies paresthesias Psychiatric Psychiatric: Denies anxiety or depression EXAM Physical Exam Const Vital Signs: 12/11/22 16:13 12/11/22 17:15 12/11/22 19:00 Temperature 96.5 F L Temperature Source Temporal Pulse Rate 75 75 Respiratory Rate 18 16 16 Blood Pressure 78/51 L 114/77 Blood Pressure Mean 60 89 Pulse Ox 96 95 Oxygen Delivery Method Room Air Room Air 12/11/22 18:15 12/11/22 19:20 Temperature Temperature Source Pulse Rate 72 77 Respiratory Rate 16 16 Blood Pressure 142/95 H 154/93 H Blood Pressure Mean 110 113 Pulse Ox 95 96 Oxygen Delivery Method Room Air Room Air Positive well nourished General Appearance ED: NAD; Negative for pallor HEENT Reports moist mucous membranes Negative for trauma or tenderness Chest Wall inspection of chest normal Resp normal respiratory effort and clear to auscultation bilaterally Auscultation: Negative for rales, rhonchi or wheezes Cardio regular rate and regular rhythm GI normal to inspection, nondistended, normoactive bowel sounds Back/Spine no CVA tenderness Neuro oriented x3 and CN's II-XII intact bilaterally Sensorium / Orientation: alert Skin no rashes or lesions noted General Skin Exam: Negative for jaundice or pallor MDM MDM MDM Narrative Medical decision making narrative: Patient seen and evaluated for generally feeling unwell. He does complain of pain everywhere above the sternum including his chest, arms, neck, head. He is not a very good informant. I did review the medical record and saw that he was here yesterday and had blood work. When I asked the patient what was different from his presentation yesterday he stated everything is just worse. He cannot elaborate any further. His initial blood pressure was 78/51, when I went into the room he was 110/90. Since he has pain in the chest area I will obtain an EKG, troponin. Patient was given a liter of normal saline. Blood pressure continues to improve. His blood pressure 154/93. CBC shows no leukocytosis. Hemoglobin hematocrit are stable. Platelets are normal. CMP shows normal LFTs. Renal function and electrolytes are normal with exception of a glucose of 337. No anion gap. No DKA. EtOH normal. Drug abuse screen negative. Urinalysis also normal. EKG was obtained and on my interpretation this is a normal sinus rhythm with ventricular rate of 70 bpm without sign of ischemic change. Chest x-ray on my interpretation shows no acute cardiopulmonary process. Radiologist services and agrees. I found no reason as to why the patient feels weak except for may be a high blood sugar. His blood sugar on recheck after liter of fluids is down to 245. Patient was discussed with Dr. Chavez. He is on-call for Dr. Hassan who is now retired. Patient Dr. Chavez recommended restarting the patient's home diabetic medication.. He also recommended having him follow-up with him in the office. He is to call to make an appointment. Patient counseled on this. He is counseled to make follow-up so that he will have refills. He acknowledged understanding. Impression: 1. Medical noncompliance 2. Hyperglycemia 3. Generalized weakness Lab Data Attestation: I reviewed the patient's lab results. Labs: Laboratory Results - last 24 hr 12/11/22 12/11/22 12/11/22 17:00 17:00 17:00 WBC 6.8 RBC 5.09 Hgb 14.4 Hct 41.9 MCV 82.3 MCH 28.3 MCHC 34.4 RDW Std Deviation 38.8 RDW Coeff of Manjinder 13.2 Plt Count 202 MPV 9.5 Immature Gran % (Auto) 0.400 Neut % (Auto) 67.1 Lymph % (Auto) 22.4 [place] % (Auto) 6.1 Eos % (Auto) 3.4 Baso % (Auto) 0.6 Absolute Neuts (auto) 4.6 Absolute Lymphs (auto) 1.53 Nucleated RBC % 0 Sodium 139 Potassium 3.4 L Chloride 104 Carbon Dioxide 28.0 Anion Gap 7 BUN 8 Creatinine 0.93 Estim Creat Clear Calc 103.79 Est GFR (MDRD) Af Amer 105 Est GFR (MDRD) Non-Af 87 BUN/Creatinine Ratio 8.6 L Glucose 337 H Calcium 8.6 Total Bilirubin 0.60 AST 5 L ALT 12 L Alkaline Phosphatase 72 Troponin I High Sens 6 Total Protein 6.7 Albumin 3.5 Globulin 3.2 Albumin/Globulin Ratio 1.1 Urine Color Urine Clarity Urine pH Ur Specific [place] Urine Protein Urine Glucose (UA) Urine Ketones Urine Occult Blood Urine Nitrite Urine Bilirubin Urine Urobilinogen Ur Leukocyte Esterase Urine RBC Urine WBC Ur Squamous Epith Cells Urine Bacteria Urine Mucus Urine Opiates Screen Urine Methadone Screen Ur Barbiturates Screen Ur Phencyclidine Scrn Ur Amphetamines Screen MDMA (Ecstasy) Screen U Benzodiazepines Scrn Urine Cocaine Screen U Cannabinoids Screen Ur Drug Screen Comment Ethyl Alcohol < 3.0 POC Glucose 12/11/22 12/11/22 12/11/22 18:40 18:40 19:25 WBC RBC Hgb Hct MCV MCH MCHC RDW Std Deviation RDW Coeff of Manjinder Plt Count MPV Immature Gran % (Auto) Neut % (Auto) Lymph % (Auto) [place] % (Auto) Eos % (Auto) Baso % (Auto) Absolute Neuts (auto) Absolute Lymphs (auto) Nucleated RBC % Sodium Potassium Chloride Carbon Dioxide Anion Gap BUN Creatinine Estim Creat Clear Calc Est GFR (MDRD) Af Amer Est GFR (MDRD) Non-Af BUN/Creatinine Ratio Glucose Calcium Total Bilirubin AST ALT Alkaline Phosphatase Troponin I High Sens Total Protein Albumin Globulin Albumin/Globulin Ratio Urine Color Yellow Urine Clarity Clear Urine pH 6.0 Ur Specific [place] 1.015 Urine Protein 15 H Urine Glucose (UA) 1000 H Urine Ketones 5 H Urine Occult Blood Negative Urine Nitrite Negative Urine Bilirubin Negative Urine Urobilinogen Normal Ur Leukocyte Esterase Negative Urine RBC 0 SEEN Urine WBC 0 SEEN Ur Squamous Epith Cells 0 SEEN Urine Bacteria 0 SEEN Urine Mucus RARE Urine Opiates Screen NEGATIVE Urine Methadone Screen NEGATIVE Ur Barbiturates Screen NEGATIVE Ur Phencyclidine Scrn NEGATIVE Ur Amphetamines Screen NEGATIVE MDMA (Ecstasy) Screen NEGATIVE U Benzodiazepines Scrn NEGATIVE Urine Cocaine Screen NEGATIVE U Cannabinoids Screen NEGATIVE Ur Drug Screen Comment Ethyl Alcohol POC Glucose 272 H Radiography Diagnostic Testing: Clinical Impression(s) from Imaging Studies Chest X-Ray 12/11/22 17:16 IMPRESSION: No acute abnormality or major interval change. Electronically Signed: Misael Trimble DO at 17:32 EST Reading Location ID and State: [address] [place] [address] Tel [phone], Service support , Discharge Plan Triage Chief Complaint: Weakness Other Complaint: Nausea/Vomiting ED Provider: Keenan Wu Dx/Rx/DC Orders Clinical Impression: Diabetes mellitus with hyperglycemia, Weakness, Non-compliance Instructions: ED Diabetic Hyperglycemia Prescriptions: New glipizide 5 mg tablet 5 mg PO DAILY Qty: 60 0RF metformin 500 mg tablet 500 mg PO DAILY Qty: 60 0RF insulin glargine [Lantus U-100 Insulin] 100 unit/mL solution 10 unit subcut QPM Qty: 10 0RF No Action metformin 500 MG tablet 500 mg PO BID Label Comments: diabetes insulin glargine [Lantus Solostar U-100 Insulin] 100 unit/mL (3 mL) Insulin Pen 10 unit SUBCUT BID fluconazole [Diflucan] 200 mg tablet 200 mg PO DAILY glipizide 5 mg tablet 5 mg PO BID Rx Instructions: Hold if glucose less than 130 mg/dl ondansetron 4 mg tablet,disintegrating 4 mg PO Q8H PRN (Reason: nausea and vomiting) Qty: 10 0RF permethrin [Elimite] 5 % cream 1 applic topical Q14D Qty: 60 0RF Rx Instructions: apply second treatment 14 days after first treatment if live lice remain prednisone 10 mg tablet 10 mg PO DAILY Qty: 30 0RF Rx Instructions: 4 pills by mouth days 1 through 3 3 pills by mouth days 4 through 6 2 pills by mouth days 7 through 9 1 pill by mouth days 10 through 12 tramadol 50 mg tablet 50 mg PO Q4H PRN PRN (Reason: Pain) 2 Days Qty: 12 0RF dicyclomine 20 mg tablet 20 mg PO TID PRN (Reason: abdominal cramping) Qty: 20 0RF ondansetron 4 mg tablet,disintegrating 4 mg PO Q8H PRN (Reason: nausea and vomiting) Qty: 10 0RF diphenoxylate-atropine [Lomotil] 2.5-0.025 mg tablet 1 tab PO 4X/DAY PRN PRN (Reason: diarrhea) 5 Days Qty: 20 0RF Primary Care Provider: Iván Hassan Referrals: Linden Chavez DO [Med Staff - [employer]] - As soon as possible Disposition Disposition: Home, Self Care
[2022-12-11 17:15] VITALS: BP 114/77; PULSE 75; RESP 16; O2SAT 95
[2022-12-11] MEDS: 0.9% Normal Saline 1,000 ML 999 ML IV (17:15)
[2022-12-11 17:16] LABS: Absolute Lymphocyte Count 1.53 X10^3/uL (0.83-4.51); Absolute Neutrophil Count 4.6 X10^3/uL (2.0-7.7); Basophil# 0.04 X10^3/uL; Basophil% 0.6 % (0-1); Eosinophil# 0.23 X10^3/uL; Eosinophils% 3.4 % (0-5); Hematocrit 41.9 % (40-54); Hemoglobin 14.4 g/dL (13.0-16.5); Lymphocyte # 1.53 X10^3/ul (0.83-4.51); Lymphocyte % 22.4 % (19-41); Mean Corp Hgb Conc 34.4 g/dL (32-36); Mean Corpuscular Hgb 28.3 pg (27.0-32.0); Mean Corpuscular Volume 82.3 fL (80-94); Mean Platelet Vol. 9.5 fl (6.2-12.0); Monocyte# 0.42 X10^3/uL; Monocyte% 6.1 % (0-10); NRBC Flagged by Analyzer 0 % (0-5); Neutrophil # 4.59 X10^3/uL (2.7-7.7); Neutrophil % 67.1 % (47-70); Platelet Count 202 K/mm3 (150-450); RBC Distribution Width CV 13.2 % (11.6-14.6); RBC Distribution Width SD 38.8 fl (35.1-43.9); Red Blood Count 5.09 M/mm3 (4.6-6.2); White Blood Count 6.8 K/mm3 (4.4-11.0)
[2022-12-11] MEDS: Ondansetron 4 MG/2 ML Vial IV (17:16)
--- NOTE | 2022-12-11 17:16 | RAD_ITS ---
STUDY: X-RAY CHEST REASON FOR EXAM: Male, 62 years old. Weakness. Nausea and vomiting beginning today. TECHNIQUE: Single AP portable view of the chest. COMPARISON: March 19, 2022. FINDINGS: Persistent mild elevation of the right hemidiaphragm. Minimal linear atelectasis is seen in the right lung base. The lungs are otherwise clear. There is no demonstrated pleural abnormality. Normal size heart. Normal mediastinum and marcie. Normal visualized pulmonary arteries. There is atherosclerotic calcification of the aortic arch with tortuosity. No osseous changes. There is no demonstrated abnormality of the visualized soft tissue structures of the upper abdomen. RAD/Chest 1 View (Portable) IMPRESSION: No acute abnormality or major interval change. Electronically Signed: Misael Trimble DO at 17:32 EST ,
[2022-12-11 17:38] LABS: Alcohol, Blood (Medical)-Serum < 3.0 mg/dL
[2022-12-11 17:40] LABS: ALB/GLOB Ratio 1.1 RATIO (0.9-2.4); AST(SGOT) 5 U/L (15-37); Alanine Aminotransfer ALT/SGPT 12 U/L (16-61); Albumin, Serum 3.5 g/dL (3.2-5.0); Alkaline Phosphatase 72 U/L (45-117); Anion Gap 7 (5-15); BUN 8 mg/dL (7-18); BUN/Creat Ratio 8.6 RATIO (10-20); Calcium,Total 8.6 mg/dL (8.5-10.1); Chloride 104 mmol/L (98-107); Creatinine, Serum 0.93 mg/dL (0.70-1.30); EST Glomerular Filtration Rate 87 mL/min (>60); Est Glom Filt Rate - Afr Amer 105 mL/min (>60); Estimated Creatinine Clearance 103.79 ml/min; Globulin 3.2 g/dL (2.2-4.2); Glucose 337 mg/dL (74-106); Potassium 3.4 mmol/L (3.5-5.1); Protein, Total 6.7 g/dL (6.4-8.2); Sodium Level 139 mmol/L (136-145); Troponin-I HS 6 pg/mL (3.0-78.0)
[2022-12-11 18:15] VITALS: BP 142/95; PULSE 72; RESP 16; O2SAT 95
[2022-12-11 18:54] LABS: Bacteria 0 SEEN /hpf (None Seen); Red Blood Cells-Urine 0 SEEN /hpf (0-5); Squamous Epithelial Cells - UA 0 SEEN /hpf (0-5); White Blood Cells 0 SEEN /hpf (0-5)
[2022-12-11 18:59] LABS: Color, Urine Yellow (Yellow); Glucose, Dipstick 1000 mg/dl (Normal); Ketone-Dipstick 5 mg/dl (Negative); Leukocyte Esterase-Dipstick Negative /ul (Negative); Nitrite-Dipstick Negative (Negative); Occult Blood-Urine Negative /ul (Negative); Protein-Dipstick 15 mg/dl (Negative); Specific Gravity, Urine 1.015 (1.002-1.030); Urine Bilirubin Dipstick Negative (Negative); Urine Clarity Clear (Clear); Urine Urobilinogen Normal (Normal)
[2022-12-11 19:00] VITALS: RESP 16
[2022-12-11 19:06] LABS: Mucous, Urine RARE /hpf (<or=2+)
[2022-12-11 19:08] LABS: Amphetamine Urine VISTA NEGATIVE (<1000 ng/mL); Barbiturate Urine VISTA NEGATIVE (< 200 ng/mL); Benzodiazepine Urine VISTA NEGATIVE (< 200 ng/mL); Cocaine Urine VISTA NEGATIVE (< 300 ng/mL); Ecstacy Urine VISTA NEGATIVE (< 500 ng/mL); Methadone Urine VISTA NEGATIVE (< 300 ng/mL); PCP Urine VISTA NEGATIVE (< 25 ng/mL); THC Urine VISTA NEGATIVE (< 50 ng/mL); Vista UDS pH Range 5
[2022-12-11 19:20] VITALS: BP 154/93; PULSE 77; RESP 16; O2SAT 96
[2022-12-11 19:46] LABS: Bedside Glucose 272 mg/dL (74-106)
== END 2022-12-11 21:42 | disposition home or self-care (01) ==
PROVIDERS: Emergency Provider Student in an Organized Health Care Education/Training Program; PCP Family Medicine; Visit Provider Student in an Organized Health Care Education/Training Program
DX: R73.9 Hyperglycemia, unspecified (principal); Z91.199 Patient's noncompliance with other medical treatment and regimen due to unspecified reason; R53.1 Weakness; G47.30 Sleep apnea, unspecified; I25.2 Old myocardial infarction; Z95.5 Presence of coronary angioplasty implant and graft
CPT/HCPCS: 71045; 80053; 80307; 81001; 82077; 82962; 84484; 85025; 87428; 93005; 96374; 99283; A4216; J2405

== ENCOUNTER → 2022-12-15 | Outpatient (CLI) | payer MEDICAID, SELFPAY ==
[2022-12-15 13:22] LABS: T4 Free Direct 0.76 ng/dL (0.76-1.46); Thyroid Stim Hormone (TSH) 9.17 uIU/mL (0.358-3.74)
== END | disposition home or self-care (01) ==
PROVIDERS: PCP Family Medicine; Visit Provider Family Medicine
DX: E03.9 Hypothyroidism, unspecified (principal)
CPT/HCPCS: 36415; 84439; 84443

== ENCOUNTER 2023-01-18 07:58 | Emergency (ER) | payer MEDICAID, SELFPAY ==
[2023-01-18 07:58] VITALS: BP 126/88; PULSE 76; RESP 16; TEMP 36.6; O2SAT 98; BMI 27.2
--- NOTE | 2023-01-18 08:15 | EX.ED.DYSGE1 ---
HPI History of Present Illness Chief Complaint: Diarrhea Narrative Narrative: Patient presents with diarrhea for the past few hours, it is watery and he has had 4 episodes. He has no abdominal pain or abdominal cramping he has no back pain or flank pain. He is denying urinary symptoms no chest pain or shortness of breath, he feels lightheaded when he stands up. [facility] Medical History Back pain due to injury Chronic pain COPD (chronic obstructive pulmonary disease) Current use of insulin Depression Diabetes Esophageal candidiasis High cholesterol History of stress test Hyperlipidemia Hypertension Injury of head and neck Myocardial infarct Non-smoker Restless legs Sleep apnea Home Medications metformin 500 mg tablet,extended release 24 hr 500 mg PO BID diabetes 05/02/19 [History Last Taken 03/18/22] fluconazole 200 mg tablet (Diflucan) 200 mg PO DAILY antibiotic 03/19/22 [History Last Taken 03/18/22] glipizide 5 mg tablet 5 mg PO BID diabetes 03/19/22 [History Last Taken 03/18/22] insulin glargine 100 unit/mL (3 mL) subcutaneous pen (Lantus Solostar U-100 Insulin) 10 unit subcut BID diabetes 03/19/22 [History Last Taken 03/18/22] ondansetron 4 mg disintegrating tablet 4 mg PO Q8H PRN nausea and vomiting #10 tabs 04/26/22 [Rx Last Taken Unknown] permethrin 5 % topical cream (Elimite) 1 applic topical Q14D 2 doses #60 grams 05/26/22 [Rx Last Taken Unknown] prednisone 10 mg tablet 10 mg PO DAILY #30 tabs 05/26/22 [Rx Last Taken Unknown] tramadol 50 mg tablet 50 mg PO Q4H PRN PRN Pain 2 days #12 tabs 07/03/22 [Rx Last Taken Unknown] dicyclomine 20 mg tablet 20 mg PO TID PRN abdominal cramping #20 tabs 08/07/22 [Rx Last Taken Unknown] ondansetron 4 mg disintegrating tablet 4 mg PO Q8H PRN nausea and vomiting #10 tabs 09/18/22 [Rx Last Taken Unknown] diphenoxylate-atropine 2.5 mg-0.025 mg tablet (Lomotil) 1 tab PO 4X/DAY PRN PRN diarrhea 5 days #20 tabs 10/30/22 [Rx Last Taken Unknown] glipizide 5 mg tablet 5 mg PO DAILY #60 tabs 12/11/22 [Rx Last Taken Unknown] insulin glargine 100 unit/mL subcutaneous solution (Lantus U-100 Insulin) 10 unit (0.1 mL) subcut QPM #10 mL 12/11/22 [Rx Last Taken Unknown] metformin 500 mg tablet 500 mg PO DAILY #60 tabs 12/11/22 [Rx Last Taken Unknown] Allergy/AdvReac Type Severity Reaction Status Date / Time diphenhydramine HCl Allergy Rash Verified 12/11/22 16:13 [From Benadryl] Penicillins Allergy Rash Verified 12/11/22 16:13 venom-honey bee Allergy Swelling Verified 12/11/22 16:13 [bee venom (honey bee)] Surgical History History of coronary artery stent placement Social History household members: none Smoking Status: Never smoker substance use type: does not use ROS ROS ED ROS Narrative Past medical history: Reviewed, includes coronary artery disease, hypertension, hypothyroidism, diabetes, history of pancreatitis, history of alcohol abuse. Medications: Reviewed in [employer] [facility], the nurse had just gone over them with the patient. Social history: Noncontributory Review of systems: All systems negative except as indicated General: No fever, he does feel somewhat lightheaded Eyes: No visual changes ENT: No upper airway congestion, normal voice Neck: No neck pain Cardiovascular: No chest pain Respiratory: No shortness of breath or cough Gastrointestinal: No abdominal pain, no nausea or vomiting. 4 episodes of watery diarrhea as in HPI Genitourinary: No dysuria Musculoskeletal: Denies myalgias no difficulty with ambulation Skin: No rash Neurological: No memory loss, confusion or any focal weakness Hematologic: No easy bleeding or easy bruising EXAM Physical Exam Const Vital Signs: 01/18/23 07:58 01/18/23 09:41 Temperature 97.9 F Temperature Source Oral Pulse Rate 76 71 Respiratory Rate 16 16 Blood Pressure 126/88 H 149/88 H Blood Pressure Mean 100 108 Pulse Ox 98 93 Oxygen Delivery Method Room Air Room Air MDM MDM MDM Narrative Medical decision making narrative: A. Problems addressed Patient had slight dehydration, he felt lightheaded when he stands up he was given IV fluids and significantly improved. He also has diarrhea, this is somewhat chronic we did send a stool specimen which is negative so far. He feels better he wants to be discharged which is reasonable. At this time he has a normal white count, worried about an intra-abdominal pathology especially that he has no abdominal pain I am not worried about diverticulitis or appendicitis or any kind of colitis. He is slightly hyperglycemic, he has a history of diabetes I do not believe at this time I need to address it especially that the blood sugars below 200s. B. Amount and/or complexity of the data 1. CBC and CMP were interpreted by me as normal C. Risk of complications and/or morbidity Differential diagnosis: See above Lab Data Labs: Laboratory Results - last 24 hr 01/18/23 01/18/23 08:04 08:04 WBC 8.4 RBC 5.01 Hgb 14.4 Hct 40.9 MCV 81.6 MCH 28.7 MCHC 35.2 RDW Std Deviation 39.6 RDW Coeff of Manjinder 13.4 Plt Count 199 MPV 8.9 Immature Gran % (Auto) 0.200 Neut % (Auto) 71.9 H Lymph % (Auto) 18.0 L [place] % (Auto) 6.8 Eos % (Auto) 2.6 Baso % (Auto) 0.5 Absolute Neuts (auto) 6.0 Absolute Lymphs (auto) 1.51 Nucleated RBC % 0 Sodium 139 Potassium 3.4 L Chloride 105 Carbon Dioxide 28.0 Anion Gap 6 BUN 11 Creatinine 0.94 Estim Creat Clear Calc 102.69 Est GFR (MDRD) Af Amer 105 Est GFR (MDRD) Non-Af 86 BUN/Creatinine Ratio 11.7 Glucose 182 H Calcium 8.3 L Total Bilirubin 0.90 AST 10 L ALT 14 L Alkaline Phosphatase 64 Total Protein 6.9 Albumin 3.7 Globulin 3.2 Albumin/Globulin Ratio 1.2 Discharge Plan Triage Chief Complaint: Diarrhea ED Provider: Bernard Chavez Dx/Rx/DC Orders Clinical Impression: Acute dehydration, Diarrhea Instructions: Dehydration, ED Diarrhea, Unknown Cause Prescriptions: No Action metformin 500 MG tablet 500 mg PO BID Label Comments: diabetes insulin glargine [Lantus Solostar U-100 Insulin] 100 unit/mL (3 mL) Insulin Pen 10 unit SUBCUT BID fluconazole [Diflucan] 200 mg tablet 200 mg PO DAILY glipizide 5 mg tablet 5 mg PO BID Rx Instructions: Hold if glucose less than 130 mg/dl ondansetron 4 mg tablet,disintegrating 4 mg PO Q8H PRN (Reason: nausea and vomiting) Qty: 10 0RF permethrin [Elimite] 5 % cream 1 applic topical Q14D Qty: 60 0RF Rx Instructions: apply second treatment 14 days after first treatment if live lice remain prednisone 10 mg tablet 10 mg PO DAILY Qty: 30 0RF Rx Instructions: 4 pills by mouth days 1 through 3 3 pills by mouth days 4 through 6 2 pills by mouth days 7 through 9 1 pill by mouth days 10 through 12 tramadol 50 mg tablet 50 mg PO Q4H PRN PRN (Reason: Pain) 2 Days Qty: 12 0RF dicyclomine 20 mg tablet 20 mg PO TID PRN (Reason: abdominal cramping) Qty: 20 0RF ondansetron 4 mg tablet,disintegrating 4 mg PO Q8H PRN (Reason: nausea and vomiting) Qty: 10 0RF diphenoxylate-atropine [Lomotil] 2.5-0.025 mg tablet 1 tab PO 4X/DAY PRN PRN (Reason: diarrhea) 5 Days Qty: 20 0RF glipizide 5 mg tablet 5 mg PO DAILY Qty: 60 0RF metformin 500 mg tablet 500 mg PO DAILY Qty: 60 0RF insulin glargine [Lantus U-100 Insulin] 100 unit/mL solution 10 unit subcut QPM Qty: 10 0RF Primary Care Provider: Linden Chavez Referrals: Linden Chavez DO [Primary Care Provider] - 3-5 Days Disposition Disposition: Home, Self Care
[2023-01-18 08:26] LABS: Absolute Lymphocyte Count 1.51 X10^3/uL (0.83-4.51); Basophil# 0.04 X10^3/uL; Basophil% 0.5 % (0-1); Eosinophil# 0.22 X10^3/uL; Eosinophils% 2.6 % (0-5); Hematocrit 40.9 % (40-54); Hemoglobin 14.4 g/dL (13.0-16.5); Lymphocyte # 1.51 X10^3/ul (0.83-4.51); Mean Corp Hgb Conc 35.2 g/dL (32-36); Mean Corpuscular Hgb 28.7 pg (27.0-32.0); Mean Corpuscular Volume 81.6 fL (80-94); Mean Platelet Vol. 8.9 fl (6.2-12.0); Monocyte# 0.57 X10^3/uL; Monocyte% 6.8 % (0-10); NRBC Flagged by Analyzer 0 % (0-5); Neutrophil # 6.03 X10^3/uL (2.7-7.7); Neutrophil % 71.9 % (47-70); Platelet Count 199 K/mm3 (150-450); RBC Distribution Width CV 13.4 % (11.6-14.6); RBC Distribution Width SD 39.6 fl (35.1-43.9); Red Blood Count 5.01 M/mm3 (4.6-6.2); White Blood Count 8.4 K/mm3 (4.4-11.0)
[2023-01-18] MEDS: 0.9% Normal Saline 1,000 ML 1000 ML IV (08:29)
[2023-01-18 08:41] LABS: ALB/GLOB Ratio 1.2 RATIO (0.9-2.4); AST(SGOT) 10 U/L (15-37); Alanine Aminotransfer ALT/SGPT 14 U/L (16-61); Albumin, Serum 3.7 g/dL (3.2-5.0); Alkaline Phosphatase 64 U/L (45-117); Anion Gap 6 (5-15); BUN 11 mg/dL (7-18); BUN/Creat Ratio 11.7 RATIO (10-20); Calcium,Total 8.3 mg/dL (8.5-10.1); Chloride 105 mmol/L (98-107); Creatinine, Serum 0.94 mg/dL (0.70-1.30); EST Glomerular Filtration Rate 86 mL/min (>60); Est Glom Filt Rate - Afr Amer 105 mL/min (>60); Estimated Creatinine Clearance 102.69 ml/min; Globulin 3.2 g/dL (2.2-4.2); Glucose 182 mg/dL (74-106); Potassium 3.4 mmol/L (3.5-5.1); Protein, Total 6.9 g/dL (6.4-8.2); Sodium Level 139 mmol/L (136-145)
[2023-01-18 09:41] VITALS: BP 149/88; PULSE 71; RESP 16; O2SAT 93
[2023-01-18 09:50] VITALS: BP 143/66; PULSE 72; RESP 15; O2SAT 98
== END 2023-01-18 09:54 | disposition home or self-care (01) ==
PROVIDERS: Emergency Provider Emergency Medicine; PCP Family Medicine; Visit Provider Emergency Medicine
DX: E86.0 Dehydration (principal); R19.7 Diarrhea, unspecified; I25.10 Atherosclerotic heart disease of native coronary artery without angina pectoris; I25.2 Old myocardial infarction; G47.30 Sleep apnea, unspecified; Z95.5 Presence of coronary angioplasty implant and graft
CPT/HCPCS: 80053; 83630; 85025; 87493; 99285; J7030; A4216

== ENCOUNTER 2023-03-07 01:08 | Emergency (ER) | payer MEDICAID, SELFPAY ==
[2023-03-07 01:11] VITALS: BP 118/56; PULSE 81; RESP 16; TEMP 36.6; O2SAT 94; BMI 30.2
--- NOTE | 2023-03-07 01:29 | EDS_ITS ---
HPI History of Present Illness Chief Complaint: Nausea/Vomiting/Diarrhea Informant: patient Narrative Narrative: Presenting nonbloody vomiting diarrhea for past 3 hours. 4-5 emesis, 3-4 diarrhea. Denies recent antibiotics. Pain in mid abdomen. History of inguinal hernia repair as a child. History of [place] with a stent denies any heart failure history. Discussed any history of pancreatitis he states no however history and records notes alcohol history with pancreatitis. No urinary symptoms. Denies fevers however states felt warm coming in. [facility] Medical History Back pain due to injury Chronic pain COPD (chronic obstructive pulmonary disease) Current use of insulin Depression Diabetes Esophageal candidiasis High cholesterol History of stress test Hyperlipidemia Hypertension Injury of head and neck Myocardial infarct Non-smoker Restless legs Sleep apnea Home Medications metformin 500 mg tablet,extended release 24 hr 500 mg PO BID diabetes 05/02/19 [History Last Taken 03/18/22] fluconazole 200 mg tablet (Diflucan) 200 mg PO DAILY antibiotic 03/19/22 [History Last Taken 03/18/22] glipizide 5 mg tablet 5 mg PO BID diabetes 03/19/22 [History Last Taken 03/18/22] insulin glargine 100 unit/mL (3 mL) subcutaneous pen (Lantus Solostar U-100 Insulin) 10 unit subcut BID diabetes 03/19/22 [History Last Taken 03/18/22] ondansetron 4 mg disintegrating tablet 4 mg PO Q8H PRN nausea and vomiting #10 tabs 04/26/22 [Rx Last Taken Unknown] permethrin 5 % topical cream (Elimite) 1 applic topical Q14D 2 doses #60 grams 05/26/22 [Rx Last Taken Unknown] prednisone 10 mg tablet 10 mg PO DAILY #30 tabs 05/26/22 [Rx Last Taken Unknown] tramadol 50 mg tablet 50 mg PO Q4H PRN PRN Pain 2 days #12 tabs 07/03/22 [Rx Last Taken Unknown] dicyclomine 20 mg tablet 20 mg PO TID PRN abdominal cramping #20 tabs 08/07/22 [Rx Last Taken Unknown] ondansetron 4 mg disintegrating tablet 4 mg PO Q8H PRN nausea and vomiting #10 tabs 09/18/22 [Rx Last Taken Unknown] diphenoxylate-atropine 2.5 mg-0.025 mg tablet (Lomotil) 1 tab PO 4X/DAY PRN PRN diarrhea 5 days #20 tabs 10/30/22 [Rx Last Taken Unknown] glipizide 5 mg tablet 5 mg PO DAILY #60 tabs 12/11/22 [Rx Last Taken Unknown] insulin glargine 100 unit/mL subcutaneous solution (Lantus U-100 Insulin) 10 unit (0.1 mL) subcut QPM #10 mL 12/11/22 [Rx Last Taken Unknown] metformin 500 mg tablet 500 mg PO DAILY #60 tabs 12/11/22 [Rx Last Taken Unknown] ondansetron 4 mg disintegrating tablet 4 mg PO Q8H PRN PRN Nausea #10 tabs 03/07/23 [Rx Last Taken Unknown] Allergy/AdvReac Type Severity Reaction Status Date / Time diphenhydramine HCl Allergy Rash Verified 12/11/22 16:13 [From Benadryl] Penicillins Allergy Rash Verified 12/11/22 16:13 venom-honey bee Allergy Swelling Verified 12/11/22 16:13 [bee venom (honey bee)] Surgical History History of coronary artery stent placement Social History household members: none Smoking Status: Never smoker substance use type: does not use ROS ROS ED Constitutional Constitutional ED: Denies chills, fever(s) or sweats Eyes Eyes: Denies change in vision ENT ENT ED: Denies dysphagia or sore throat Cardiovascular Cardiovascular: Denies chest pain, leg edema, palpitations or racing heartbeat Respiratory/Chest Respiratory/Chest: Denies cough, dyspnea or dyspnea on exertion Gastrointestinal Gastrointestinal: Reports abdominal pain, diarrhea, nausea and vomiting Genitourinary Genitourinary ED: Denies dysuria, hematuria or urinary frequency Musculoskeletal Musculoskeletal: Denies back pain, extremity pain or neck pain Integumentary Denies rash or wounds Neurologic Neurologic: Denies headache(s), paresthesias or weakness EXAM Physical Exam Const Vital Signs: 03/07/23 01:11 03/07/23 05:36 Temperature 97.9 F Temperature Source Temporal Pulse Rate 81 81 Respiratory Rate 16 18 Blood Pressure 118/56 L 141/88 H Blood Pressure Mean 76 105 Pulse Ox 94 96 Oxygen Delivery Method Room Air Room Air Positive well nourished and well developed General Appearance ED: well developed and NAD HEENT HEENT Narrative: Mild dry mucosal membranes normocephalic and atraumatic Eyes PERRL, EOMs intact bilaterally and conjunctivae normal General Eye ED: Yes normal appearance of both eyes Neck no lymphadenopathy and supple General: Negative for tenderness Chest Wall Chest: Negative for tenderness Resp normal respiratory effort and normal air movement Effort and Inspection: symmetric chest movement; Negative for respiratory distress Cardio regular rate, regular rhythm and no murmurs Peripheral Pulses: pulses 2+ throughout GI normal to inspection, nondistended, normoactive bowel sounds GI Narrative: Tender mid abdomen. Negative Flores's McBurney's tenderness. Palpation: Negative for guarding or rebound tenderness present Back/Spine no CVA tenderness and no thoracic nor lumbar tenderness Extremity normal to inspection General Extremety ED: Negative for edema or tenderness General Extremity: Negative for edema Neuro oriented x3 and no sensory deficits noted Sensorium / Orientation: awake and alert Skin no rashes or lesions noted and no wounds MDM MDM MDM Narrative Medical decision making narrative: Interventions / MDM: Differential diagnosis: Pancreatitis, gastroenteritis, electrolyte abnormalities Diagnosis considered but do not suspect: C. difficile however denies recent antibiotics My EKG interpretation: N/A Imaging independently reviewed and interpreted by myself: N/A External documents reviewed: N/A Test considered but not ordered:N/A ED course: Patient poor historian. Reports acute vomiting diarrhea 3 hours prior to arrival. No recent antibiotics. Tender mid abdomen. Initially denied any history of pancreatitis records noticed this. Therefore labs were obtained. Lipase normal white glucose elevated 347 normal anion gap. Alcohol also negative. He is given fluids antiemetics. Negative anion gap, he is given insulin monitor, glucose improved to 130s on recheck. Re-evaluation: 0520: Tolerating oral intake. Ambulating to the restroom. Prescription Zofran sent to his pharmacy. Disposition discussed with patient/family/significant other: Patient Case discussed with consulting clinician: N/A Lab Data Attestation: I reviewed the patient's lab results. Labs: Laboratory Results - last 24 hr 03/07/23 03/07/23 03/07/23 01:16 01:16 01:16 WBC 7.4 RBC 5.02 Hgb 14.3 Hct 41.8 MCV 83.3 MCH 28.5 MCHC 34.2 RDW Std Deviation 40.3 RDW Coeff of Manjinder 13.3 Plt Count 214 MPV 9.5 Immature Gran % (Auto) 0.400 Neut % (Auto) 67.8 Lymph % (Auto) 21.8 Sandoval % (Auto) 6.4 Eos % (Auto) 3.1 Baso % (Auto) 0.5 Absolute Neuts (auto) 5.0 Absolute Lymphs (auto) 1.61 Nucleated RBC % 0 Sodium 139 Potassium 3.8 Chloride 104 Carbon Dioxide 27.0 Anion Gap 8 BUN 13 Creatinine 1.04 Estim Creat Clear Calc 85.63 Est GFR (MDRD) Af Amer 93 Est GFR (MDRD) Non-Af 77 BUN/Creatinine Ratio 12.5 Glucose 347 H Calcium 8.7 Total Bilirubin 0.60 Direct Bilirubin 0.12 AST 13 L ALT 16 Alkaline Phosphatase 67 Total Protein 7.3 Albumin 3.5 Globulin 3.8 Lipase 12 L Ethyl Alcohol < 3.0 POC Glucose 03/07/23 05:33 WBC RBC Hgb Hct MCV MCH MCHC RDW Std Deviation RDW Coeff of Manjinder Plt Count MPV Immature Gran % (Auto) Neut % (Auto) Lymph % (Auto) Sandoval % (Auto) Eos % (Auto) Baso % (Auto) Absolute Neuts (auto) Absolute Lymphs (auto) Nucleated RBC % Sodium Potassium Chloride Carbon Dioxide Anion Gap BUN Creatinine Estim Creat Clear Calc Est GFR (MDRD) Af Amer Est GFR (MDRD) Non-Af BUN/Creatinine Ratio Glucose Calcium Total Bilirubin Direct Bilirubin AST ALT Alkaline Phosphatase Total Protein Albumin Globulin Lipase Ethyl Alcohol POC Glucose 134 H Discharge Plan Triage Chief Complaint: Nausea/Vomiting/Diarrhea ED Provider: Panchito Castillo Dx/Rx/DC Orders Clinical Impression: Nausea vomiting and diarrhea, Hyperglycemia without ketosis Instructions: ED Diabetic Hyperglycemia, ED Gastroenteritis, Viral (Adult) Prescriptions: New ondansetron [ondansetron] 4 mg tablet,disintegrating 4 mg PO Q8H PRN PRN (Reason: Nausea) Qty: 10 0RF No Action metformin 500 MG tablet 500 mg PO BID Label Comments: diabetes insulin glargine [Lantus Solostar U-100 Insulin] 100 unit/mL (3 mL) Insulin Pen 10 unit SUBCUT BID fluconazole [Diflucan] 200 mg tablet 200 mg PO DAILY glipizide 5 mg tablet 5 mg PO BID Rx Instructions: Hold if glucose less than 130 mg/dl ondansetron 4 mg tablet,disintegrating 4 mg PO Q8H PRN (Reason: nausea and vomiting) Qty: 10 0RF permethrin [Elimite] 5 % cream 1 applic topical Q14D Qty: 60 0RF Rx Instructions: apply second treatment 14 days after first treatment if live lice remain prednisone 10 mg tablet 10 mg PO DAILY Qty: 30 0RF Rx Instructions: 4 pills by mouth days 1 through 3 3 pills by mouth days 4 through 6 2 pills by mouth days 7 through 9 1 pill by mouth days 10 through 12 tramadol 50 mg tablet 50 mg PO Q4H PRN PRN (Reason: Pain) 2 Days Qty: 12 0RF dicyclomine 20 mg tablet 20 mg PO TID PRN (Reason: abdominal cramping) Qty: 20 0RF ondansetron 4 mg tablet,disintegrating 4 mg PO Q8H PRN (Reason: nausea and vomiting) Qty: 10 0RF diphenoxylate-atropine [Lomotil] 2.5-0.025 mg tablet 1 tab PO 4X/DAY PRN PRN (Reason: diarrhea) 5 Days Qty: 20 0RF glipizide 5 mg tablet 5 mg PO DAILY Qty: 60 0RF metformin 500 mg tablet 500 mg PO DAILY Qty: 60 0RF insulin glargine [Lantus U-100 Insulin] 100 unit/mL solution 10 unit subcut QPM Qty: 10 0RF Primary Care Provider: Linden Chavez Referrals: Linden Chavez DO [Primary Care Provider] - 2 Days Activity Restrictions/Additional Instructions: Laboratory studies stable glucose 340s with no signs of DKA. Insulin with improvement down to 130s. Continue oral fluids for hydration. Follow-up with your doctor. Return if worsening symptoms. Disposition Disposition: Home, Self Care Discharge Date/Time: 03/07/23 06:16
[2023-03-07] MEDS: Ondansetron 4 MG/2 ML Vial IV (01:54)
[2023-03-07] MEDS: 0.9% Normal Saline 1,000 ML 1000 ML IV (01:54)
[2023-03-07] MEDS: Dicyclomine 10 MG Capsule 20 MG PO (01:54)
[2023-03-07 01:58] LABS: AST(SGOT) 13 U/L (15-37); Alanine Aminotransfer ALT/SGPT 16 U/L (16-61); Albumin, Serum 3.5 g/dL (3.2-5.0); Alkaline Phosphatase 67 U/L (45-117); Anion Gap 8 (5-15); BUN 13 mg/dL (7-18); BUN/Creat Ratio 12.5 RATIO (10-20); Bilirubin, Direct 0.12 mg/dL (0.00-0.30); Calcium,Total 8.7 mg/dL (8.5-10.1); Chloride 104 mmol/L (98-107); Creatinine, Serum 1.04 mg/dL (0.70-1.30); EST Glomerular Filtration Rate 77 mL/min (>60); Est Glom Filt Rate - Afr Amer 93 mL/min (>60); Estimated Creatinine Clearance 85.63 ml/min; Globulin 3.8 g/dL (2.2-4.2); Glucose 347 mg/dL (74-106); Lipase 12 U/L (13-75); Potassium 3.8 mmol/L (3.5-5.1); Protein, Total 7.3 g/dL (6.4-8.2); Sodium Level 139 mmol/L (136-145)
[2023-03-07 02:00] LABS: Alcohol, Blood (Medical)-Serum < 3.0 mg/dL
[2023-03-07 02:03] LABS: Absolute Lymphocyte Count 1.61 X10^3/uL (0.83-4.51); Basophil# 0.04 X10^3/uL; Basophil% 0.5 % (0-1); Eosinophil# 0.23 X10^3/uL; Eosinophils% 3.1 % (0-5); Hematocrit 41.8 % (40-54); Hemoglobin 14.3 g/dL (13.0-16.5); Lymphocyte # 1.61 X10^3/ul (0.83-4.51); Lymphocyte % 21.8 % (19-41); Mean Corp Hgb Conc 34.2 g/dL (32-36); Mean Corpuscular Hgb 28.5 pg (27.0-32.0); Mean Corpuscular Volume 83.3 fL (80-94); Mean Platelet Vol. 9.5 fl (6.2-12.0); Monocyte# 0.47 X10^3/uL; Monocyte% 6.4 % (0-10); NRBC Flagged by Analyzer 0 % (0-5); Neutrophil # 5.02 X10^3/uL (2.7-7.7); Neutrophil % 67.8 % (47-70); Platelet Count 214 K/mm3 (150-450); RBC Distribution Width CV 13.3 % (11.6-14.6); RBC Distribution Width SD 40.3 fl (35.1-43.9); Red Blood Count 5.02 M/mm3 (4.6-6.2); White Blood Count 7.4 K/mm3 (4.4-11.0)
[2023-03-07] MEDS: 0.9% Normal Saline 1,000 ML 999 ML IV (02:31)
[2023-03-07] MEDS: Insulin Lispro 100 UNIT/ML INSULN.PEN 10 UNIT SC (02:31)
[2023-03-07 05:36] VITALS: BP 141/88; PULSE 81; RESP 18; O2SAT 96
[2023-03-07 05:55] LABS: Bedside Glucose 134 mg/dL (74-106)
== END 2023-03-07 06:16 | disposition home or self-care (01) ==
PROVIDERS: Emergency Provider Emergency Medicine; PCP Family Medicine; Visit Provider Emergency Medicine
DX: R11.2 Nausea with vomiting, unspecified (principal); E11.65 Type 2 diabetes mellitus with hyperglycemia; R19.7 Diarrhea, unspecified; I25.2 Old myocardial infarction; G47.30 Sleep apnea, unspecified; Z95.5 Presence of coronary angioplasty implant and graft
CPT/HCPCS: 80048; 80076; 82077; 82962; 83690; 85025; 96361; 96374; 99285; J7030; A4216; J2405

== ENCOUNTER 2023-05-12 15:50 | Emergency (ER) | payer MEDICAID, SELFPAY ==
[2023-05-12 15:52] VITALS: BP 125/76; PULSE 72; RESP 14; TEMP 36.2; O2SAT 94; BMI 28.4
--- NOTE | 2023-05-12 16:17 | EDS_ITS ---
HPI History of Present Illness HPI Narrative: Patient presents with pain to his right thigh that began today. Patient states he slipped in the shower and felt pain in his right thigh. Patient states he did not fall. Patient denies any snapping or popping sensation. Patient states his pain is only when he walks. Patient denies any paresthesias or weakness. Patient states his pain is sharp when he walks. Patient states he has been having some diarrhea recently which is why he needed to take a shower. Chief Complaint: Lower Extremity Injury Informant: patient Occured/Mechanism Comment: Patient slipped in the shower Onset/Context/Timing Onset: Today Context: Sudden Onset Timing: Continuous Quality of Pain: Sharp Location: Right thigh Worsened by: Ambulation Relieved by: Rest Associated Symptoms Associated Symptoms: Negative for Parasthesia, Weakness or Loss of Funtion [facility] Medical History (Updated 05/12/23 @ 17:[address] 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 Restless legs Sleep apnea Home Medications metformin 500 mg tablet,extended release 24 hr 500 mg PO BID diabetes 05/02/19 [History Last Taken 03/18/22] fluconazole 200 mg tablet (Diflucan) 200 mg PO DAILY antibiotic 03/19/22 [History Last Taken 03/18/22] glipizide 5 mg tablet 5 mg PO BID diabetes 03/19/22 [History Last Taken 03/18/22] insulin glargine 100 unit/mL (3 mL) subcutaneous pen (Lantus Solostar U-100 Insulin) 10 unit subcut BID diabetes 03/19/22 [History Last Taken 03/18/22] ondansetron 4 mg disintegrating tablet 4 mg PO Q8H PRN nausea and vomiting #10 t abs 04/26/22 [Rx Last Taken Unknown] permethrin 5 % topical cream (Elimite) 1 applic topical Q14D 2 doses #60 grams 05/26/22 [Rx Last Taken Unknown] prednisone 10 mg tablet 10 mg PO DAILY #30 tabs 05/26/22 [Rx Last Taken Unknown] tramadol 50 mg tablet 50 mg PO Q4H PRN PRN Pain 2 days #12 tabs 07/03/22 [Rx Last Taken Unknown] dicyclomine 20 mg tablet 20 mg PO TID PRN abdominal cramping #20 tabs 08/07/22 [Rx Last Taken Unknown] ondansetron 4 mg disintegrating tablet 4 mg PO Q8H PRN nausea and vomiting #10 tabs 09/18/22 [Rx Last Taken Unknown] diphenoxylate-atropine 2.5 mg-0.025 mg tablet (Lomotil) 1 tab PO 4X/DAY PRN PRN diarrhea 5 days #20 tabs 10/30/22 [Rx Last Taken Unknown] glipizide 5 mg tablet 5 mg PO DAILY #60 tabs 12/11/22 [Rx Last Taken Unknown] insulin glargine 100 unit/mL subcutaneous solution (Lantus U-100 Insulin) 10 unit (0.1 mL) subcut QPM #10 mL 12/11/22 [Rx Last Taken Unknown] metformin 500 mg tablet 500 mg PO DAILY #60 tabs 12/11/22 [Rx Last Taken Unknown] ondansetron 4 mg disintegrating tablet 4 mg PO Q8H PRN PRN Nausea #10 tabs 03/07/23 [Rx Last Taken Unknown] ibuprofen 600 mg tablet 600 mg PO Q8H PRN PRN pain #20 TABLETS 05/12/23 [Rx Last Taken Unknown] Allergy/AdvReac Type Severity Reaction Status Date / Time diphenhydramine HCl Allergy Rash Verified 12/11/22 16:13 [From Benadryl] Penicillins Allergy Rash Verified 12/11/22 16:13 venom-honey bee Allergy Swelling Verified 12/11/22 16:13 [bee venom (honey bee)] Surgical History (Updated 05/12/23 @ 16:[address] Quan Feldman, ) History of coronary artery stent placement Hx of inguinal herniorrhaphy Hx of left knee surgery Social History household members: none Smoking Status: Never smoker substance use type: does not use ROS ROS ED Constitutional Constitutional ED: Denies chills or fever(s) Eyes Eyes: Denies blurry vision or change in vision ENT ENT ED: Denies rhinorrhea or sore throat Cardiovascular Cardiovascular: Denies chest pain or palpitations Respiratory/Chest Respiratory/Chest: Denies cough or dyspnea Gastrointestinal Gastrointestinal: Reports diarrhea; Denies nausea or vomiting Genitourinary Genitourinary ED: Denies dysuria or hematuria Musculoskeletal Musculoskeletal: Denies back pain or neck pain Integumentary Reports rash; Denies abscess Neurologic Neurologic: Denies headache(s) or weakness Allergic/Immunologic Allergic/Immunologic ED: Denies mouth swelling or urticaria EXAM Physical Exam Const Vital Signs: 05/12/23 15:52 Temperature 97.1 F L Temperature Source Temporal Pulse Rate 72 Respiratory Rate 14 Blood Pressure 125/76 H Blood Pressure Mean 92 Pulse Ox 94 Oxygen Delivery Method Room Air Positive well nourished and well developed General Appearance ED: well developed and NAD HEENT Reports moist mucous membranes Neck full ROM and supple Extremity Extremity Narrative: There is tenderness to the midportion of the right thigh. There is no deformity noted. There is good active and passive range of motion. Strength is 5/5 bilaterally in the lower extremities. There are no sensory deficits noted. Ped al pulses are equal bilaterally. Neuro oriented x3, CN's II-XII intact bilaterally, moves all extremities and no sensory deficits noted Sensorium / Orientation: alert Motor Exam: strength 5/5 throughout Psych mental status grossly normal MDM MDM MDM Narrative Medical decision making narrative: Differential diagnosis includes fracture, and muscle strain. X-rays of the right femur will be obtained to assess for fracture. Radiography Diagnostic Testing: Clinical Impression(s) from Imaging Studies Femur X-Ray 05/12/23 16:18 IMPRESSION: Probable dorsal patellar defect. Fracture age-indeterminate less likely. Otherwise Normal x-ray examination of the femur. Electronically Signed: Ramakrishna Zuñiga MD at 16:48 EDT Reading Location ID and State: [facility] [place] , Service support , X-rays of the right femur were obtained. There are 4 views. On my independent interpretation, there is no acute fracture. There is no soft tissue swelling. Radiologist also interpreted the x-ray. He noted a dorsal patellar defect but otherwise agreed with my interpretation. However this is unlikely a fracture since he is not painful over the patella. Treatment and Re-Evaluation Narrative: Patient was advised of his findings. Patient was instructed to use ice to the area. Patient was given a prescription for ibuprofen to take as needed for pain. Patient was instructed to follow-up with his primary care physician in 5 to 7 days. Patient understood and was agreeable with the plan. All questions were answered. Discharge Plan Triage Chief Complaint: Lower Extremity Injury ED Provider: Quan Feldman Dx/Rx/DC Orders Clinical Impression: Muscle strain of right thigh Instructions: ED Muscle Strain, Extremity Prescriptions: New ibuprofen 600 mg tablet 600 mg PO Q8H PRN PRN (Reason: pain) Qty: 20 0RF No Action metformin 500 MG tablet 500 mg PO BID Patient Comments: diabetes insulin glargine [Lantus Solostar U-100 Insulin] 100 unit/mL (3 mL) Insulin Pen 10 unit SUBCUT BID fluconazole [Diflucan] 200 mg tablet 200 mg PO DAILY glipizide 5 mg tablet 5 mg PO BID Rx Instructions: Hold if glucose less than 130 mg/dl ondansetron 4 mg tablet,disintegrating 4 mg PO Q8H PRN (Reason: nausea and vomiting) Qty: 10 0RF permethrin [Elimite] 5 % cream 1 applic topical Q14D Qty: 60 0RF Rx Instructions: apply second treatment 14 days after first treatment if live lice remain prednisone 10 mg tablet 10 mg PO DAILY Qty: 30 0RF Rx Instructions: 4 pills by mouth days 1 through 3 3 pills by mouth days 4 through 6 2 pills by mouth days 7 through 9 1 pill by mouth days 10 through 12 tramadol 50 mg tablet 50 mg PO Q4H PRN PRN (Reason: Pain) 2 Days Qty: 12 0RF dicyclomine 20 mg tablet 20 mg PO TID PRN (Reason: abdominal cramping) Qty: 20 0RF ondansetron 4 mg tablet,disintegrating 4 mg PO Q8H PRN (Reason: nausea and vomiting) Qty: 10 0RF diphenoxylate-atropine [Lomotil] 2.5-0.025 mg tablet 1 tab PO 4X/DAY PRN PRN (Reason: diarrhea) 5 Days Qty: 20 0RF glipizide 5 mg tablet 5 mg PO DAILY Qty: 60 0RF metformin 500 mg tablet 500 mg PO DAILY Qty: 60 0RF insulin glargine [Lantus U-100 Insulin] 100 unit/mL solution 10 unit subcut QPM Qty: 10 0RF ondansetron [ondansetron] 4 mg tablet,disintegrating 4 mg PO Q8H PRN PRN (Reason: Nausea) Qty: 10 0RF Primary Care Provider: Linden Chavez Referrals: Linden Chavez DO [Primary Care Provider] - 5-7 Days Disposition Disposition: Home, Self Care
--- NOTE | 2023-05-12 16:18 | RAD_ITS ---
STUDY: X-RAY - RIGHT FEMUR REASON FOR STUDY: Male, 63 years old. Injury/Pain TECHNIQUE: 2 view(s) of the femur. COMPARISON: None. FINDINGS: Normal visualized femur. Normal visualized soft tissue structure. Well-corticated defect superior lateral patella. RAD/Femur Min 2 Views IMPRESSION: Probable dorsal patellar defect. Fracture age-indeterminate less likely. Otherwise Normal x-ray examination of the femur. Electronically Signed: Ramakrishna Zuñiga MD at 16:48 EDT ,
== END 2023-05-12 17:34 | disposition home or self-care (01) ==
PROVIDERS: Emergency Provider Emergency Medicine; PCP Family Medicine; Visit Provider Emergency Medicine
DX: S76.911A Strain of unspecified muscles, fascia and tendons at thigh level, right thigh, initial encounter (principal); I25.2 Old myocardial infarction; G47.30 Sleep apnea, unspecified; Z95.5 Presence of coronary angioplasty implant and graft; W18.2XXA Fall in (into) shower or empty bathtub, initial encounter
CPT/HCPCS: 73552; 99284

== ENCOUNTER 2023-07-29 09:07 | Emergency (ER) | payer MEDICAID, SELFPAY ==
[2023-07-29 09:08] VITALS: BP 127/82; PULSE 75; RESP 16; TEMP 36.4; O2SAT 98; BMI 28.2
--- NOTE | 2023-07-29 09:16 | EX.ED.DYSGE1 ---
HPI History of Present Illness Chief Complaint: General Illness Detail of Chief Complaint: General sense of unwellness. Informant: patient Onset/Context/Timing Onset: Hours Context: Sudden Onset Timing: Continuous Quality: Patient states he was with his friend who is making it car payment and felt Location: Generalized Current Severity: Moderate Maximum Severity: Moderate Worsened by: Nothing Relieved by: Nothing Associated Symptoms Associated Symptoms: Nausea Narrative Narrative: Patient is a 63-year-old male with history of coronary disease with 2 stents, hypertension, hyperlipidemia, type 2 diabetes requiring insulin, kidney disease who presents with not feeling well. He states it started shortly after he had breakfast. His blood sugar was between 203 100 this morning. He denies fever or chills. He denies headache. He denies double vision, blurred vision loss of vision. Has ringing's ears or decreased hearing. He does endorse dry mouth and thirst. He denies orthostatic symptoms. He denies chest discomfort. He denies shortness of breath. He denies abdominal pain. He does endorse nausea. He states he has chronic diarrhea. He has a rash is upper extremity and torso. This is due to bedbugs. He states his house was exterminated. 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 Restless legs Sleep apnea Home Medications metformin 500 mg tablet,extended release 24 hr 500 mg PO BID diabetes 05/02/19 [History Last Taken 03/18/22] fluconazole 200 mg tablet (Diflucan) 200 mg PO DAILY antibiotic 03/19/22 [History Last Taken 03/18/22] glipizide 5 mg tablet 5 mg PO BID diabetes 03/19/22 [History Last Taken 03/18/22] insulin glargine 100 unit/mL (3 mL) subcutaneous pen (Lantus Solostar U-100 Insulin) 10 unit subcut BID diabetes 03/19/22 [History Last Taken 03/18/22] ondansetron 4 mg disintegrating tablet 4 mg PO Q8H PRN nausea and vomiting #10 tabs 04/26/22 [Rx Last Taken Unknown] permethrin 5 % topical cream (Elimite) 1 applic topical Q14D 2 doses #60 grams 05/26/22 [Rx Last Taken Unknown] prednisone 10 mg tablet 10 mg PO DAILY #30 tabs 05/26/22 [Rx Last Taken Unknown] tramadol 50 mg tablet 50 mg PO Q4H PRN PRN Pain 2 days #12 tabs 07/03/22 [Rx Last Taken Unknown] dicyclomine 20 mg tablet 20 mg PO TID PRN abdominal cramping #20 tabs 08/07/22 [Rx Last Taken Unknown] ondansetron 4 mg disintegrating tablet 4 mg PO Q8H PRN nausea and vomiting #10 tabs 09/18/22 [Rx Last Taken Unknown] diphenoxylate-atropine 2.5 mg-0.025 mg tablet (Lomotil) 1 tab PO 4X/DAY PRN PRN diarrhea 5 days #20 tabs 10/30/22 [Rx Last Taken Unknown] glipizide 5 mg tablet 5 mg PO DAILY #60 tabs 12/11/22 [Rx Last Taken Unknown] insulin glargine 100 unit/mL subcutaneous solution (Lantus U-100 Insulin) 10 unit (0.1 mL) subcut QPM #10 mL 12/11/22 [Rx Last Taken Unknown] metformin 500 mg tablet 500 mg PO DAILY #60 tabs 12/11/22 [Rx Last Taken Unknown] ondansetron 4 mg disintegrating tablet 4 mg PO Q8H PRN PRN Nausea #10 tabs 03/07/23 [Rx Last Taken Unknown] ibuprofen 600 mg tablet 600 mg PO Q8H PRN PRN pain #20 TABLETS 05/12/23 [Rx Last Taken Unknown] Allergy/AdvReac Type Severity Reaction Status Date / Time diphenhydramine HCl Allergy Rash Verified 12/11/22 16:13 [From Benadryl] Penicillins Allergy Rash Verified 12/11/22 16:13 venom-honey bee Allergy Swelling Verified 12/11/22 16:13 [bee venom (honey bee)] Surgical History History of coronary artery stent placement Hx of inguinal herniorrhaphy Hx of left knee surgery Social History household members: none Smoking Status: Never smoker substance use type: does not use ROS ROS ED Constitutional Constitutional ED: Denies chills, fever(s), subjective, sweats or weight loss Eyes Eyes: Denies blurry vision, change in vision or diplopia ENT ENT ED: Denies ear pain, rhinorrhea or sore throat Cardiovascular Cardiovascular: Denies chest pain, orthopnea, palpitations, paroxysmal nocturnal dyspnea or racing heartbeat Respiratory/Chest Respiratory/Chest: Denies cough, dyspnea, dyspnea on exertion, orthopnea or paroxysmal nocturnal dyspnea Gastrointestinal Gastrointestinal: Reports diarrhea and nausea; Denies abdominal pain, melena or vomiting Genitourinary Genitourinary ED: Reports urinary frequency; Denies dysuria or hematuria Musculoskeletal Musculoskeletal: Denies arthralgias, back pain, myalgias or neck pain Integumentary Reports rash Neurologic Neurologic: Reports weakness; Denies headache(s) or paresthesias Endocrine Endocrinology: Reports polyuria; Denies cold intolerance or heat intolerance Hematologic/Lymphatic Hematologic/Lymphatic: Reports systems reviewed and no addt'l complaints, except as documented Allergic/Immunologic Allergic/Immunologic ED: Denies mouth swelling, tongue swelling or urticaria EXAM Physical Exam Const Vital Signs: 07/29/23 09:08 Temperature 97.5 F L Temperature Source Temporal Pulse Rate 75 Respiratory Rate 16 Blood Pressure 127/82 H Blood Pressure Mean 97 Pulse Ox 98 Oxygen Delivery Method Room Air Positive well nourished and well developed Constitutional Narrative: Patient does not appear in any distress; however, he does not appear well. He is not alert either. General Appearance ED: well developed and NAD; Negative for cyanotic or diaphoretic HEENT Reports dry mucous membranes HEENT Narrative: Head is normocephalic and atraumatic. Ears are normal. TMs are normal. Nares are patent. Posterior pharynx out erythema or exudate. Uvula is midline. There is no deviation with protrusion. Patient's mucosa is dry. Mouth ED: Yes dry mucous membranes Mouth: dry mucous membranes Eyes PERRL and EOMs intact bilaterally General Eye ED: Negative for pale conjunctiva or scleral icterus Neck no lymphadenopathy, supple and no JVD Chest Wall inspection of chest normal and palpation of chest normal Resp normal respiratory effort and clear to auscultation bilaterally Cardio regular rate, regular rhythm, S1 normal heart sound, S2 normal heart sound and no murmurs GI normal to inspection, nondistended, normoactive bowel sounds and non-tender; Negative for non-distended or hepatosplenomegaly GI Narrative: Abdomen is slightly tympanitic. Patient states he does not feel bloated or does stented. Auscultation: hypoactive bowel sounds Palpation: soft; Negative for tender, guarding, splenomegaly or mass Back/Spine no CVA tenderness Back/Spine Narrative: Inspection of the back is unremarkable other than the rash due to bedbugs. Extremity Negative for normal to inspection Extremity Narrative: Patient has multiple lesions on his upper extremity due to bedbugs. Neuro oriented x3, CN's II-XII intact bilaterally and no sensory deficits noted Sensorium / Orientation: Negative for alert Motor Exam: strength 5/5 throughout Psych mental status grossly normal Skin No no rashes or lesions noted and No no wounds Skin Narrative: None of his wounds are infected. MDM MDM MDM Narrative Medical decision making narrative: Will obtain PGT to determine if patient is markedly hyperglycemic or hypoglycemic causing his symptoms. Also need to entertain possibility of atypical cardiac presentation since he is diabetic and may not experience chest discomfort. CBC was obtained to assess H&H and white count as well as differential. BMP to assess renal function, glucose with anion gap and electrolytes. Since patient clinically appears dehydrated 1 L of normal saline was ordered. He will receive 4 mg of Zofran for his nausea. History & Record Review Additional record(s) reviewed:: Prior outpatient record, Prior ED visit and Prior labs Lab Data Attestation: I reviewed the patient's lab results. Lab results narrative: CBC is unremarkable. BMP reveals a glucose of 408 with a normal CO2 and anion gap. BUN and creatinine are 14 and 1.26. Labs: Laboratory Results - last 24 hr 07/29/23 07/29/23 09:35 09:55 WBC 8.3 RBC 4.62 Hgb 12.9 L Hct 37.8 L MCV 81.8 MCH 27.9 MCHC 34.1 RDW Std Deviation 39.1 RDW Coeff of Manjinder 13.3 Plt Count 208 MPV 9.5 Immature Gran % (Auto) 0.600 Neut % (Auto) 74.4 H Lymph % (Auto) 15.2 L [place] % (Auto) 6.7 Eos % (Auto) 2.4 Baso % (Auto) 0.7 Absolute Neuts (auto) 6.2 Absolute Lymphs (auto) 1.27 Nucleated RBC % 0 Sodium 135 L Potassium 4.0 Chloride 100 Carbon Dioxide 30.0 Anion Gap 5 BUN 14 Creatinine 1.26 Estim Creat Clear Calc 75.63 Est GFR (MDRD) Af Amer 74 Est GFR (MDRD) Non-Af 61 BUN/Creatinine Ratio 11.1 Glucose 408 H Calcium 8.5 Troponin I High Sens 4 POC Glucose 400 H Treatment and Re-Evaluation :: Patient was reassessed at 1327. He is asleep. He feels much better. He is no longer. This may have been due to hyperglycemia. Plan is to discharge to home Discharge Plan Triage Chief Complaint: General Illness ED Provider: Ar Calle Dx/Rx/DC Orders Clinical Impression: Type 2 diabetes mellitus with hyperglycemia, Coronary atherosclerosis of [place] coronary artery, Essential hypertension, HLD (hyperlipidemia), Hypothyroidism, Acute alteration in mental status Instructions: ED Diabetic Hyperglycemia Prescriptions: No Action metformin 500 MG tablet 500 mg PO BID Patient Comments: diabetes insulin glargine [Lantus Solostar U-100 Insulin] 100 unit/mL (3 mL) Insulin Pen 10 unit SUBCUT BID fluconazole [Diflucan] 200 mg tablet 200 mg PO DAILY glipizide 5 mg tablet 5 mg PO BID Rx Instructions: Hold if glucose less than 130 mg/dl ondansetron 4 mg tablet,disintegrating 4 mg PO Q8H PRN (Reason: nausea and vomiting) Qty: 10 0RF permethrin [Elimite] 5 % cream 1 applic topical Q14D Qty: 60 0RF Rx Instructions: apply second treatment 14 days after first treatment if live lice remain prednisone 10 mg tablet 10 mg PO DAILY Qty: 30 0RF Rx Instructions: 4 pills by mouth days 1 through 3 3 pills by mouth days 4 through 6 2 pills by mouth days 7 through 9 1 pill by mouth days 10 through 12 tramadol 50 mg tablet 50 mg PO Q4H PRN PRN (Reason: Pain) 2 Days Qty: 12 0RF dicyclomine 20 mg tablet 20 mg PO TID PRN (Reason: abdominal cramping) Qty: 20 0RF ondansetron 4 mg tablet,disintegrating 4 mg PO Q8H PRN (Reason: nausea and vomiting) Qty: 10 0RF diphenoxylate-atropine [Lomotil] 2.5-0.025 mg tablet 1 tab PO 4X/DAY PRN PRN (Reason: diarrhea) 5 Days Qty: 20 0RF glipizide 5 mg tablet 5 mg PO DAILY Qty: 60 0RF metformin 500 mg tablet 500 mg PO DAILY Qty: 60 0RF insulin glargine [Lantus U-100 Insulin] 100 unit/mL solution 10 unit subcut QPM Qty: 10 0RF ondansetron [ondansetron] 4 mg tablet,disintegrating 4 mg PO Q8H PRN PRN (Reason: Nausea) Qty: 10 0RF ibuprofen 600 mg tablet 600 mg PO Q8H PRN PRN (Reason: pain) Qty: 20 0RF Primary Care Provider: Linden Chavez Referrals: Linden Chavez DO [Primary Care Provider] - 1 Week Disposition Disposition: Home, Self Care
[2023-07-29 09:53] LABS: Bedside Glucose 400 mg/dL (74-106)
[2023-07-29 10:03] LABS: Absolute Lymphocyte Count 1.27 X10^3/uL (0.83-4.51); Absolute Neutrophil Count 6.2 X10^3/uL (2.0-7.7); Basophil# 0.06 X10^3/uL; Basophil% 0.7 % (0-1); Eosinophils% 2.4 % (0-5); Hematocrit 37.8 % (40-54); Hemoglobin 12.9 g/dL (13.0-16.5); Lymphocyte # 1.27 X10^3/ul (0.83-4.51); Lymphocyte % 15.2 % (19-41); Mean Corp Hgb Conc 34.1 g/dL (32-36); Mean Corpuscular Hgb 27.9 pg (27.0-32.0); Mean Corpuscular Volume 81.8 fL (80-94); Mean Platelet Vol. 9.5 fl (6.2-12.0); Monocyte# 0.56 X10^3/uL; Monocyte% 6.7 % (0-10); NRBC Flagged by Analyzer 0 % (0-5); Neutrophil # 6.19 X10^3/uL (2.7-7.7); Neutrophil % 74.4 % (47-70); Platelet Count 208 K/mm3 (150-450); RBC Distribution Width CV 13.3 % (11.6-14.6); RBC Distribution Width SD 39.1 fl (35.1-43.9); Red Blood Count 4.62 M/mm3 (4.6-6.2); White Blood Count 8.3 K/mm3 (4.4-11.0)
[2023-07-29] MEDS: 0.9% Normal Saline (1000mL) 1,000 ML 1000 ML IV (10:05)
[2023-07-29 10:20] LABS: Anion Gap 5 (5-15); BUN 14 mg/dL (7-18); BUN/Creat Ratio 11.1 RATIO (10-20); Calcium,Total 8.5 mg/dL (8.5-10.1); Chloride 100 mmol/L (98-107); Creatinine, Serum 1.26 mg/dL (0.70-1.30); EST Glomerular Filtration Rate 61 mL/min (>60); Est Glom Filt Rate - Afr Amer 74 mL/min (>60); Estimated Creatinine Clearance 75.63 ml/min; Glucose 408 mg/dL (74-106); Sodium Level 135 mmol/L (136-145); Troponin-I HS 4 pg/mL (3.0-78.0)
[2023-07-29] MEDS: Insulin Lispro 100 UNIT/ML INSULN.PEN 8 UNIT SC (11:24)
--- NOTE | 2023-07-29 13:16 | ED.RN ---
Attempted to get a urine sample from patient, pt. stated he did not want to get up and give a urine sample despite having a liter of fluid. Pt. stated he was ready to go.
--- NOTE | 2023-07-29 13:43 | EX.ED.DYSGE1 ---
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 Restless legs Sleep apnea Home Medications metformin 500 mg tablet,extended release 24 hr 500 mg PO BID diabetes 05/02/19 [History Last Taken 03/18/22] fluconazole 200 mg tablet (Diflucan) 200 mg PO DAILY antibiotic 03/19/22 [History Last Taken 03/18/22] glipizide 5 mg tablet 5 mg PO BID diabetes 03/19/22 [History Last Taken 03/18/22] insulin glargine 100 unit/mL (3 mL) subcutaneous pen (Lantus Solostar U-100 Insulin) 10 unit subcut BID diabetes 03/19/22 [History Last Taken 03/18/22] ondansetron 4 mg disintegrating tablet 4 mg PO Q8H PRN nausea and vomiting #10 tabs 04/26/22 [Rx Last Taken Unknown] permethrin 5 % topical cream (Elimite) 1 applic topical Q14D 2 doses #60 grams 05/26/22 [Rx Last Taken Unknown] prednisone 10 mg tablet 10 mg PO DAILY #30 tabs 05/26/22 [Rx Last Taken Unknown] tramadol 50 mg tablet 50 mg PO Q4H PRN PRN Pain 2 days #12 tabs 07/03/22 [Rx Last Taken Unknown] dicyclomine 20 mg tablet 20 mg PO TID PRN abdominal cramping #20 tabs 08/07/22 [Rx Last Taken Unknown] ondansetron 4 mg disintegrating tablet 4 mg PO Q8H PRN nausea and vomiting #10 tabs 09/18/22 [Rx Last Taken Unknown] diphenoxylate-atropine 2.5 mg-0.025 mg tablet (Lomotil) 1 tab PO 4X/DAY PRN PRN diarrhea 5 days #20 tabs 10/30/22 [Rx Last Taken Unknown] glipizide 5 mg tablet 5 mg PO DAILY #60 tabs 12/11/22 [Rx Last Taken Unknown] insulin glargine 100 unit/mL subcutaneous solution (Lantus U-100 Insulin) 10 unit (0.1 mL) subcut QPM #10 mL 12/11/22 [Rx Last Taken Unknown] metformin 500 mg tablet 500 mg PO DAILY #60 tabs 12/11/22 [Rx Last Taken Unknown] ondansetron 4 mg disintegrating tablet 4 mg PO Q8H PRN PRN Nausea #10 tabs 03/07/23 [Rx Last Taken Unknown] ibuprofen 600 mg tablet 600 mg PO Q8H PRN PRN pain #20 TABLETS 05/12/23 [Rx Last Taken Unknown] Allergy/AdvReac Type Severity Reaction Status Date / Time diphenhydramine HCl Allergy Rash Verified 12/11/22 16:13 [From Benadryl] Penicillins Allergy Rash Verified 12/11/22 16:13 venom-honey bee Allergy Swelling Verified 12/11/22 16:13 [bee venom (honey bee)] Surgical History History of coronary artery stent placement Hx of inguinal herniorrhaphy Hx of left knee surgery Social History household members: none Smoking Status: Never smoker substance use type: does not use EXAM Physical Exam Const Vital Signs: 07/29/23 09:08 Temperature 97.5 F L Temperature Source Temporal Pulse Rate 75 Respiratory Rate 16 Blood Pressure 127/82 H Blood Pressure Mean 97 Pulse Ox 98 Oxygen Delivery Method Room Air [facility] Lab Data Attestation: I reviewed the patient's lab results. Lab results narrative: CBC was unremarkable. Basic metabolic panel revealed a glucose of 408 with a normal CO2 anion gap. BUN is normal at 14 with creatinine 1.26. Labs: Laboratory Results - last 24 hr 07/29/23 07/29/23 09:35 09:55 WBC 8.3 RBC 4.62 Hgb 12.9 L Hct 37.8 L MCV 81.8 MCH 27.9 MCHC 34.1 RDW Std Deviation 39.1 RDW Coeff of Manjinder 13.3 Plt Count 208 MPV 9.5 Immature Gran % (Auto) 0.600 Neut % (Auto) 74.4 H Lymph % (Auto) 15.2 L [place] % (Auto) 6.7 Eos % (Auto) 2.4 Baso % (Auto) 0.7 Absolute Neuts (auto) 6.2 Absolute Lymphs (auto) 1.27 Nucleated RBC % 0 Sodium 135 L Potassium 4.0 Chloride 100 Carbon Dioxide 30.0 Anion Gap 5 BUN 14 Creatinine 1.26 Estim Creat Clear Calc 75.63 Est GFR (MDRD) Af Amer 74 Est GFR (MDRD) Non-Af 61 BUN/Creatinine Ratio 11.1 Glucose 408 H Calcium 8.5 Troponin I High Sens 4 POC Glucose 400 H EKG Initial EKG: Attestation: I personally reviewed and interpreted this EKG as follows: Interpretation: Sinus Rhythm (Rate is 73. There is an incomplete left bundle branch block noted. [place] interval is 184 ms. Cures duration 102 ms. QT duration 402 ms. [place] is to the left.) Discharge Plan Triage Chief Complaint: General Illness ED Provider: Ar Calle Dx/Rx/DC Orders Clinical Impression: Type 2 diabetes mellitus with hyperglycemia, Coronary atherosclerosis of [place] coronary artery, Essential hypertension, HLD (hyperlipidemia), Hypothyroidism, Acute alteration in mental status Instructions: ED Diabetic Hyperglycemia Prescriptions: No Action metformin 500 MG tablet 500 mg PO BID Patient Comments: diabetes insulin glargine [Lantus Solostar U-100 Insulin] 100 unit/mL (3 mL) Insulin Pen 10 unit SUBCUT BID fluconazole [Diflucan] 200 mg tablet 200 mg PO DAILY glipizide 5 mg tablet 5 mg PO BID Rx Instructions: Hold if glucose less than 130 mg/dl ondansetron 4 mg tablet,disintegrating 4 mg PO Q8H PRN (Reason: nausea and vomiting) Qty: 10 0RF permethrin [Elimite] 5 % cream 1 applic topical Q14D Qty: 60 0RF Rx Instructions: apply second treatment 14 days after first treatment if live lice remain prednisone 10 mg tablet 10 mg PO DAILY Qty: 30 0RF Rx Instructions: 4 pills by mouth days 1 through 3 3 pills by mouth days 4 through 6 2 pills by mouth days 7 through 9 1 pill by mouth days 10 through 12 tramadol 50 mg tablet 50 mg PO Q4H PRN PRN (Reason: Pain) 2 Days Qty: 12 0RF dicyclomine 20 mg tablet 20 mg PO TID PRN (Reason: abdominal cramping) Qty: 20 0RF ondansetron 4 mg tablet,disintegrating 4 mg PO Q8H PRN (Reason: nausea and vomiting) Qty: 10 0RF diphenoxylate-atropine [Lomotil] 2.5-0.025 mg tablet 1 tab PO 4X/DAY PRN PRN (Reason: diarrhea) 5 Days Qty: 20 0RF glipizide 5 mg tablet 5 mg PO DAILY Qty: 60 0RF metformin 500 mg tablet 500 mg PO DAILY Qty: 60 0RF insulin glargine [Lantus U-100 Insulin] 100 unit/mL solution 10 unit subcut QPM Qty: 10 0RF ondansetron [ondansetron] 4 mg tablet,disintegrating 4 mg PO Q8H PRN PRN (Reason: Nausea) Qty: 10 0RF ibuprofen 600 mg tablet 600 mg PO Q8H PRN PRN (Reason: pain) Qty: 20 0RF Primary Care Provider: Linden Chavez Referrals: Linden Chavez DO [Primary Care Provider] - 1 Week Disposition Disposition: Home, Self Care
[2023-07-29 13:51] VITALS: BP 135/101; PULSE 86; RESP 16; O2SAT 88
== END 2023-07-29 13:53 | disposition home or self-care (01) ==
PROVIDERS: Emergency Provider Emergency Medicine; PCP Family Medicine; Visit Provider Emergency Medicine
DX: E11.65 Type 2 diabetes mellitus with hyperglycemia (principal); I25.10 Atherosclerotic heart disease of native coronary artery without angina pectoris; R41.82 Altered mental status, unspecified; E03.9 Hypothyroidism, unspecified; E78.00 Pure hypercholesterolemia, unspecified; I10 Essential (primary) hypertension; I25.2 Old myocardial infarction; G47.30 Sleep apnea, unspecified; Z95.5 Presence of coronary angioplasty implant and graft
CPT/HCPCS: 80048; 82962; 84484; 85025; 93005; 96361; 96374; 99284; J7030; A4216

== ENCOUNTER 2023-08-26 05:06 | Emergency (ER) | payer MEDICAID, SELFPAY ==
[2023-08-26 05:07] VITALS: BP 144/80; PULSE 78; RESP 18; TEMP 36.3; O2SAT 98; BMI 27.2
--- NOTE | 2023-08-26 05:10 | EX.ED.UPPERE ---
HPI History of Present Illness Chief Complaint: Upper Extremity Injury Informant: patient Narrative Narrative: Patient presents with left posterior shoulder pain that he noted last night. He states he was fishing yesterday and noted a lump on the back of his left shoulder that is painful. He is not sure if he may have been bitten by something. He is left-hand dominant. Pain does not radiate down his arm. He has not taken anything for pain. 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 Restless legs Sleep apnea Home Medications metformin 500 mg tablet,extended release 24 hr 500 mg PO BID diabetes 05/02/19 [History Last Taken 03/18/22] fluconazole 200 mg tablet (Diflucan) 200 mg PO DAILY antibiotic 03/19/22 [History Last Taken 03/18/22] glipizide 5 mg tablet 5 mg PO BID diabetes 03/19/22 [History Last Taken 03/18/22] insulin glargine 100 unit/mL (3 mL) subcutaneous pen (Lantus Solostar U-100 Insulin) 10 unit subcut BID diabetes 03/19/22 [History Last Taken 03/18/22] ondansetron 4 mg disintegrating tablet 4 mg PO Q8H PRN nausea and vomiting #10 tabs 04/26/22 [Rx Last Taken Unknown] permethrin 5 % topical cream (Elimite) 1 applic topical Q14D 2 doses #60 grams 05/26/22 [Rx Last Taken Unknown] prednisone 10 mg tablet 10 mg PO DAILY #30 tabs 05/26/22 [Rx Last Taken Unknown] tramadol 50 mg tablet 50 mg PO Q4H PRN PRN Pain 2 days #12 tabs 07/03/22 [Rx Last Taken Unknown] dicyclomine 20 mg tablet 20 mg PO TID PRN abdominal cramping #20 tabs 08/07/22 [Rx Last Taken Unknown] ondansetron 4 mg disintegrating tablet 4 mg PO Q8H PRN nausea and vomiting #10 tabs 09/18/22 [Rx Last Taken Unknown] diphenoxylate-atropine 2.5 mg-0.025 mg tablet (Lomotil) 1 tab PO 4X/DAY PRN PRN diarrhea 5 days #20 tabs 10/30/22 [Rx Last Taken Unknown] glipizide 5 mg tablet 5 mg PO DAILY #60 tabs 12/11/22 [Rx Last Taken Unknown] insulin glargine 100 unit/mL subcutaneous solution (Lantus U-100 Insulin) 10 unit (0.1 mL) subcut QPM #10 mL 12/11/22 [Rx Last Taken Unknown] metformin 500 mg tablet 500 mg PO DAILY #60 tabs 12/11/22 [Rx Last Taken Unknown] ondansetron 4 mg disintegrating tablet 4 mg PO Q8H PRN PRN Nausea #10 tabs 03/07/23 [Rx Last Taken Unknown] ibuprofen 600 mg tablet 600 mg PO Q8H PRN PRN pain #20 TABLETS 05/12/23 [Rx Last Taken Unknown] cyclobenzaprine 10 mg tablet 10 mg PO TID PRN Muscle Spasm #20 TABLETS 08/26/23 [Rx Last Taken Unknown] hydrocortisone 1 % topical cream 1 applic topical TID PRN skin irritation #28.4 grams 08/26/23 [Rx Last Taken Unknown] ibuprofen 600 mg tablet 600 mg PO Q8H PRN PRN pain #20 TABLETS 08/26/23 [Rx Last Taken Unknown] Allergy/AdvReac Type Severity Reaction Status Date / Time diphenhydramine HCl Allergy Rash Verified 08/26/23 05:09 [From Benadryl] Penicillins Allergy Rash Verified 08/26/23 05:09 venom-honey bee Allergy Swelling Verified 08/26/23 05:09 [bee venom (honey bee)] Surgical History History of coronary artery stent placement Hx of inguinal herniorrhaphy Hx of left knee surgery Social History household members: none Smoking Status: Never smoker substance use type: does not use ROS ROS ED Constitutional Constitutional ED: Denies chills or fever(s) Eyes Eyes: Denies change in vision or discharge from eye(s) ENT ENT ED: Denies discharge from eye(s), rhinorrhea or sore throat Cardiovascular Cardiovascular: Denies chest pain or palpitations Respiratory/Chest Respiratory/Chest: Denies cough or dyspnea Gastrointestinal Gastrointestinal: Denies abdominal pain Musculoskeletal Musculoskeletal: Reports extremity pain; Denies back pain Integumentary Denies Abrasions or rash Neurologic Neurologic: Denies headache(s), paresthesias or weakness Psychiatric Psychiatric: Denies anxiety or depression Allergic/Immunologic Allergic/Immunologic ED: Denies lip swelling or urticaria EXAM Physical Exam Const Vital Signs: 08/26/23 05:07 Temperature 97.3 F L Temperature Source Temporal Pulse Rate 78 Respiratory Rate 18 Blood Pressure 144/80 H Blood Pressure Mean 101 Pulse Ox 98 Oxygen Delivery Method Room Air Positive well nourished and well developed General Appearance ED: well developed HEENT Reports moist mucous membranes Eyes EOMs intact bilaterally Neck full ROM Chest Wall inspection of chest normal and palpation of chest normal Resp normal respiratory effort and clear to auscultation bilaterally Cardio regular rate and regular rhythm GI non-tender Back/Spine Back/Spine Narrative: Patient has multiple scabbed lesions on his back. There is 1 over the left scapula that he feels is more tender. He does, however, have muscular tenderness across the scapula and to the inferior aspect of his neck. No palpable muscle spasm. No evidence of secondary wound infection. Patient also has a area of dry erythematous skin over the right flank with some scattered scabbed lesions as well. This does not appear consistent with shingles. He states this area does itch at times. I do not see any evidence of bacterial infection. Extremity normal to inspection and full ROM Neuro oriented x3, moves all extremities and no sensory deficits noted Motor Exam: strength 5/5 throughout Skin Skin Narrative: Scabbed lesions as noted above. MDM MDM MDM Narrative Medical decision making narrative: Patient given Naprosyn and Flexeril for pain and muscle spasm. Left shoulder x-rays obtained. Radiography Diagnostic Testing: Radiology Impression Shoulder X-Ray 08/26/23 05:15 IMPRESSION: Negative left shoulder x-rays. Electronically Signed: Joseph Vazquez MD at 5:39 EDT , Treatment and Re-Evaluation Narrative: Left shoulder x-rays per my interpretation reveal no evidence of acute bony injury. No foreign body noted. Radiology interpretation reviewed and agrees. Test results are discussed with the patient. I do believe his left shoulder pain is more muscular in nature as it does extend along the muscle path. He will be treated with ibuprofen and Flexeril. In regards to the rash on the right flank I will write him hydrocortisone cream topically. This will avoid oral steroids that we will raise his blood sugar. Discharge Plan Triage Chief Complaint: Upper Extremity Injury ED Provider: Shania Disla Dx/Rx/DC Orders Clinical Impression: Dermatitis, Sprain of left shoulder Instructions: ED Atopic Dermatitis (Adult), ED Shoulder Sprain Prescriptions: New ibuprofen 600 mg tablet 600 mg PO Q8H PRN PRN (Reason: pain) Qty: 20 0RF cyclobenzaprine 10 mg tablet 10 mg PO TID PRN (Reason: Muscle Spasm) Qty: 20 0RF hydrocortisone 1 % cream 1 applic topical TID PRN (Reason: skin irritation) Qty: 28.4 0RF No Action metformin 500 MG tablet 500 mg PO BID Patient Comments: diabetes insulin glargine [Lantus Solostar U-100 Insulin] 100 unit/mL (3 mL) Insulin Pen 10 unit SUBCUT BID fluconazole [Diflucan] 200 mg tablet 200 mg PO DAILY glipizide 5 mg tablet 5 mg PO BID Rx Instructions: Hold if glucose less than 130 mg/dl ondansetron 4 mg tablet,disintegrating 4 mg PO Q8H PRN (Reason: nausea and vomiting) Qty: 10 0RF permethrin [Elimite] 5 % cream 1 applic topical Q14D Qty: 60 0RF Rx Instructions: apply second treatment 14 days after first treatment if live lice remain prednisone 10 mg tablet 10 mg PO DAILY Qty: 30 0RF Rx Instructions: 4 pills by mouth days 1 through 3 3 pills by mouth days 4 through 6 2 pills by mouth days 7 through 9 1 pill by mouth days 10 through 12 tramadol 50 mg tablet 50 mg PO Q4H PRN PRN (Reason: Pain) 2 Days Qty: 12 0RF dicyclomine 20 mg tablet 20 mg PO TID PRN (Reason: abdominal cramping) Qty: 20 0RF ondansetron 4 mg tablet,disintegrating 4 mg PO Q8H PRN (Reason: nausea and vomiting) Qty: 10 0RF diphenoxylate-atropine [Lomotil] 2.5-0.025 mg tablet 1 tab PO 4X/DAY PRN PRN (Reason: diarrhea) 5 Days Qty: 20 0RF glipizide 5 mg tablet 5 mg PO DAILY Qty: 60 0RF metformin 500 mg tablet 500 mg PO DAILY Qty: 60 0RF insulin glargine [Lantus U-100 Insulin] 100 unit/mL solution 10 unit subcut QPM Qty: 10 0RF ondansetron [ondansetron] 4 mg tablet,disintegrating 4 mg PO Q8H PRN PRN (Reason: Nausea) Qty: 10 0RF ibuprofen 600 mg tablet 600 mg PO Q8H PRN PRN (Reason: pain) Qty: 20 0RF Primary Care Provider: Linden Chavez Referrals: Linden Chavez DO [Primary Care Provider] - 1-2 Weeks Disposition Disposition: Home, Self Care
--- NOTE | 2023-08-26 05:15 | RAD_ITS ---
EXAM: XR LEFT SHOULDER COMPLETE, 2 OR MORE VIEWS CLINICAL INDICATION: pain TECHNIQUE: Two or more views of the left shoulder. COMPARISON: No relevant prior studies available. FINDINGS: BONES/JOINTS: Unremarkable. No acute fracture. No subluxation. Normal alignment. Preservation of the joint space. No sclerotic or destructive changes observed. SOFT TISSUES: Unremarkable. No soft tissue swelling or gas. No radiopaque foreign body. RAD/Shoulder min 2 Views IMPRESSION: Negative left shoulder x-rays. Electronically Signed: Joseph Vazquez MD at 5:39 EDT ,
[2023-08-26] MEDS: Naproxen 500 MG Tablet PO (05:54)
[2023-08-26] MEDS: cycloBENZAPRine HCl 10 MG Tablet PO (05:54)
== END 2023-08-26 06:17 | disposition home or self-care (01) ==
PROVIDERS: Emergency Provider Emergency Medicine; PCP Family Medicine; Visit Provider Emergency Medicine
DX: L30.9 Dermatitis, unspecified (principal); S43.402A Unspecified sprain of left shoulder joint, initial encounter; G47.30 Sleep apnea, unspecified; I25.2 Old myocardial infarction; Z95.5 Presence of coronary angioplasty implant and graft; X58.XXXA Exposure to other specified factors, initial encounter
CPT/HCPCS: 73030; 99284

== ENCOUNTER 2023-09-29 19:22 | Emergency (ER) | payer MEDICAID, SELFPAY ==
[2023-09-29 19:23] VITALS: BP 81/57; PULSE 82; RESP 18; TEMP 36.4; O2SAT 96; BMI 28.4
[2023-09-29 20:43] VITALS: BP 108/58
--- NOTE | 2023-09-29 21:00 | CT_ITS ---
EXAM: CT ABDOMEN AND PELVIS WITH INTRAVENOUS CONTRAST CLINICAL INDICATION: Pain, diarrhea TECHNIQUE: Helically acquired images were obtained of the abdomen and pelvis with intravenous contrast. This CT exam was performed using one or more of the following dose reduction techniques: automated exposure control, adjustment of the mA and/or kV according to patient size, and/or use of iterative reconstruction technique. CONTRAST: IV 100mL Isovue-370 RADIATION DOSE: Total DLP: 1470.56 mGy-cm. COMPARISON: CT of 08/07/2022. FINDINGS: LOWER THORAX: Mild elevation of the right hemidiaphragm with right basilar atelectasis. No pleural effusion. Coronary artery calcification is present. No significant pericardial effusion. ABDOMEN: LIVER: Minimal fatty infiltration of the liver. Portal veins enhance normally. No focal intrahepatic abnormality. GALLBLADDER AND BILE DUCTS: Upper normal size gallbladder. Slightly increased density within the dependent portion of the gallbladder neck, most likely sludge. No gallbladder wall thickening or pericholecystic stranding. No biliary ductal dilatation. PANCREAS: Atrophic pancreas. No findings of acute pancreatitis. No focal cystic or solid mass. SPLEEN: 2 tiny stable simple cysts within the lower pole of the spleen. ADRENALS: Unremarkable. No nodules. KIDNEYS AND URETERS: Unremarkable. Normal renal size and position. No hydronephrosis. No renal or obstructing ureteral stones. STOMACH AND BOWEL: Moderate hypodense laminated thickening of the rectal wall is present, with minimal surrounding haziness in the perirectal fat. The wall of the distal sigmoid colon is mildly thickened, in part due to a lack of distention but a mild colitis is also suspected in this region. No findings of diverticulitis or small bowel obstruction. No pneumatosis or extraluminal air. No gastric mural thickening, periduodenal inflammatory changes or distended small bowel loops. Contrast noted within the distal small bowel and colon. PELVIS: APPENDIX: No evidence of acute appendicitis. BLADDER: Unremarkable. REPRODUCTIVE: Unremarkable as visualized. No mass. ABDOMEN and PELVIS: INTRAPERITONEAL SPACE: No ascites or free air. BONES/JOINTS: Severe degenerative disc space narrowing with vacuum disc phenomenon, endplate sclerosis and marginal osteophytes again noted at the L4/5 level. L5/S1 disc space shows moderate degenerative narrowing with vacuum disc phenomenon and marginal osteophytes. Broad-based annular bulges are again noted at these 2 degenerated levels with surrounding osteophytes, narrowing the neural foramina bilaterally and causing thecal sac stenosis at L4/5 where AP diameter of spinal canal measures 7 mm. No suspicious lytic or blastic abnormality. SOFT TISSUES: Small fat-filled inguinal hernias. Minimal fat-filled umbilical hernia. VASCULATURE: Mildly calcific abdominal aorta and its branches. No AAA. Calcified and noncalcified plaque again causes subtotal occlusion of the left internal iliac artery. SILAS and SMA enhance normally. LYMPH NODES: Unremarkable. No enlarged lymph nodes. CT/Abdomen/Pelvis W IV Cont ONLY IMPRESSION: Findings of a mild/moderate colitis affecting the distal sigmoid colon and rectum. No abscess or free air. Electronically Signed: Aung Oglesby MD at 22:26 EST ,
--- NOTE | 2023-09-29 21:01 | EDS_ITS ---
HPI History of Present Illness Chief Complaint: Nausea/Vomiting/Diarrhea Narrative Narrative: 63-year-old male past medical history of hypertension, presents with nausea and diarrhea that he has had for the last 5 hours. He states he ate at the [employer] and had a salad with 6 ranch dressings, but states he has had it before and never gets sick from it. However, he feels nauseated as if he were going to vomit. While he has not vomited, he ended up having diarrhea, few episodes prior to arrival. These were nonbloody. Does not really have abdominal pain, but he states that he feels sick, and generally weak. He states he has past medical history of diabetes and takes insulin at night. He feels feverish at times. His main concern is his diarrhea and nausea. No chest pain or shortness of breath. 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 Restless legs Sleep apnea Home Medications metformin 500 mg tablet,extended release 24 hr 500 mg PO BID diabetes 05/02/19 [History Last Taken 03/18/22] fluconazole 200 mg tablet (Diflucan) 200 mg PO DAILY antibiotic 03/19/22 [History Last Taken 03/18/22] glipizide 5 mg tablet 5 mg PO BID diabetes 03/19/22 [History Last Taken 02/28 07/22] insulin glargine 100 unit/mL (3 mL) subcutaneous pen (Lantus Solostar U-100 Insulin) 10 unit subcut BID diabetes 03/19/22 [History Last Taken 03/18/22] ondansetron 4 mg disintegrating tablet 4 mg PO Q8H PRN nausea and vomiting #10 tabs 04/26/22 [Rx Last Taken Unknown] dicyclomine 20 mg tablet 20 mg PO TID PRN abdominal cramping #20 tabs 08/07/22 [Rx Last Taken Unknown] diphenoxylate-atropine 2.5 mg-0.025 mg tablet (Lomotil) 1 tab PO 4X/DAY PRN PRN diarrhea 5 days #20 tabs 10/30/22 [Rx Last Taken Unknown] cyclobenzaprine 10 mg tablet 10 mg PO TID PRN Muscle Spasm #20 TABLETS 08/26/23 [Rx Last Taken Unknown] hydrocortisone 1 % topical cream 1 applic topical TID PRN skin irritation #28.4 grams 08/26/23 [Rx Last Taken Unknown] ibuprofen 600 mg tablet 600 mg PO Q8H PRN PRN pain #20 TABLETS 08/26/23 [Rx Last Taken Unknown] ciprofloxacin HCl 500 mg tablet (Cipro) 500 mg PO BID #20 tabs 09/29/23 [Rx Last Taken Unknown] insulin glargine 100 unit/mL subcutaneous solution (Lantus U-100 Insulin) 1 unit subcut QPM 09/29/23 [History Last Taken Unknown] levothyroxine 100 mcg tablet 100 mcg PO DAILY 09/29/23 [History Last Taken Unknown] metronidazole 500 mg tablet 500 mg PO BID 10 days #20 tabs 09/29/23 [Rx Last Taken Unknown] Allergy/AdvReac Type Severity Reaction Status Date / Time diphenhydramine HCl Allergy Rash Verified 09/29/23 19:23 [From Benadryl] Penicillins Allergy Rash Verified 09/29/23 19:23 venom-honey bee Allergy Swelling Verified 09/29/23 19:23 [bee venom (honey bee)] Surgical History History of coronary artery stent placement Hx of inguinal herniorrhaphy Hx of left knee surgery Social History household members: none Smoking Status: Never smoker substance use type: does not use ROS ROS ED ROS Narrative Constitutional: Subjective fever, no chills. Generalized weakness HEENT: No sore throat. No neck pain. No loss of vision. No rhinorrhea. Cardiovascular: No chest pain. No palpitations. No pedal edema. Respiratory: No cough, no shortness of breath. Abdominal: No abdominal pain. Positive nausea. No vomiting. Few episodes of diarrhea prior to arrival. Genitourinary: No dysuria. No hematuria. Musculoskeletal: No myalgias. No arthralgias. Neurologic: No headaches. No dizziness. No lightheadedness. Skin: No rash. No change in color. Psychiatric: No depression. No anxiety. EXAM Physical Exam Narrative Exam Narrative: Afebrile. Vital signs noted. HEENT: Normocephalic. Atraumatic. PERRL, EOMI. Neck soft and supple. No point tenderness or step off. Cardiovascular: Regular rate and rhythm. No murmurs, rubs, or gallops appreciated. Respiratory: No tachypnea. Lungs clear to auscultation bilaterally. Gastrointestinal: Abdomen soft, nontender, with normoactive bowel sounds. No rebound or guarding. Neurological: Awake. Alert. Nonfocal, nonlateralizing. Skin: No rash. Normal color. No pallor. Musculoskeletal: No pedal edema. Full range of motion extremities. Const Vital Signs: 09/29/23 19:23 09/29/23 20:43 Temperature 97.6 F L Temperature Source Temporal Pulse Rate 82 Respiratory Rate 18 Blood Pressure 81/57 L 108/58 L Blood Pressure Mean 65 74 Pulse Ox 96 Oxygen Delivery Method Room Air MDM MDM MDM Narrative Medical decision making narrative: In the differential diagnosis is diverticulitis versus gastroenteritis. Initially, he was hypotensive in triage, but I am unsure if this is an accurate reading. He will be bolused normal saline and given ondansetron. He is requesting a p.o. challenge. As he is diabetic, I do feel that laboratory work is indicated to help rule out any ketoacidosis or hyperosmolarity. Has had pancreatitis in the past. I do feel CT imaging is indicated as well of his abdomen and pelvis with IV contrast. He was also administered ondansetron for his nausea. I reviewed his laboratory work and he has normal white count of 10.9, hemoglobin normal at 14.0, hematocrit 41.1, platelet count normal at 226. Electrolyte panel is grossly unremarkable with a sodium normal at 137, potassium 3.9, chloride 105, BUN normal at 17 with creatinine 1.03, glucose is appropriately elevated at 213 with an anion gap low at 4. I have no concern for diabetic ketoacidosis. Lipase is normal at 13. I reviewed the radiology report of the CT of the abdomen and pelvis which shows colitis affecting the distal sigmoid colon and rectum. He was given his first doses of Cipro and Flagyl. He states he no longer drinks alcohol. I wrote him a prescription for Cipro floxacillin and for metronidazole for the next 10 days. He is to follow-up with his primary care provider. I do not feel he requires observation or admission at this time for colitis as he does not have a fever or elevated white count. He has not had diarrhea here in the emergency department. Return instructions to the emergency department were reviewed. Disposition is discharged home in stable condition. History & Record Review Discussion w/independent historian: Patient Additional record(s) reviewed:: Prior ED visit and Prior labs Lab Data Attestation: I reviewed the patient's lab results. Labs: Laboratory Results - last 24 hr 09/29/23 21:45 WBC 10.9 RBC 4.98 Hgb 14.0 Hct 41.1 MCV 82.5 MCH 28.1 MCHC 34.1 RDW Std Deviation 39.8 RDW Coeff of Manjinder 13.4 Plt Count 226 MPV 9.2 Immature Gran % (Auto) 0.500 Neut % (Auto) 78.5 H Lymph % (Auto) 13.5 L Upton % (Auto) 5.2 Eos % (Auto) 1.7 Baso % (Auto) 0.6 Absolute Neuts (auto) 8.5 H Absolute Lymphs (auto) 1.47 Nucleated RBC % 0 Sodium 137 Potassium 3.9 Chloride 105 Carbon Dioxide 28.0 Anion Gap 4 L BUN 17 Creatinine 1.03 Estim Creat Clear Calc 92.51 Est GFR (MDRD) Af Amer 94 Est GFR (MDRD) Non-Af 77 BUN/Creatinine Ratio 16.5 Glucose 213 H Calcium 8.7 Total Bilirubin 0.40 AST 9 L ALT 14 L Alkaline Phosphatase 100 Total Protein 7.2 Albumin 3.5 Globulin 3.7 Albumin/Globulin Ratio 0.9 Lipase 13 Radiography Diagnostic Testing: Clinical Impression(s) from Imaging Studies Abdomen/Pelvis CT 09/29/23 21:00 IMPRESSION: Findings of a mild/moderate colitis affecting the distal sigmoid colon and rectum. No abscess or free air. Electronically Signed: Aung Oglesby MD at 22:26 EST , Discharge Plan Triage Chief Complaint: Nausea/Vomiting/Diarrhea ED Provider: Barry Mathew Dx/Rx/DC Orders Clinical Impression: Colitis, Diarrhea Instructions: ED Understanding Colitis Prescriptions: New ciprofloxacin HCl [Cipro] 500 mg tablet 500 mg PO BID Qty: 20 0RF metronidazole 500 mg tablet 500 mg PO BID 10 Days Qty: 20 0RF No Action metformin 500 MG tablet 500 mg PO BID Patient Comments: diabetes insulin glargine [Lantus Solostar U-100 Insulin] 100 unit/mL (3 mL) Insulin Pen 10 unit SUBCUT BID fluconazole [Diflucan] 200 mg tablet 200 mg PO DAILY glipizide 5 mg tablet 5 mg PO BID Rx Instructions: Hold if glucose less than 130 mg/dl ondansetron 4 mg tablet,disintegrating 4 mg PO Q8H PRN (Reason: nausea and vomiting) Qty: 10 0RF dicyclomine 20 mg tablet 20 mg PO TID PRN (Reason: abdominal cramping) Qty: 20 0RF diphenoxylate-atropine [Lomotil] 2.5-0.025 mg tablet 1 tab PO 4X/DAY PRN PRN (Reason: diarrhea) 5 Days Qty: 20 0RF ibuprofen 600 mg tablet 600 mg PO Q8H PRN PRN (Reason: pain) Qty: 20 0RF cyclobenzaprine 10 mg tablet 10 mg PO TID PRN (Reason: Muscle Spasm) Qty: 20 0RF hydrocortisone 1 % cream 1 applic topical TID PRN (Reason: skin irritation) Qty: 28.4 0RF levothyroxine 100 mcg tablet 100 mcg PO DAILY Patient Comments: Take 1 tab by mouth once daily on an empty stomach insulin glargine [Lantus U-100 Insulin] 100 unit/mL solution 1 unit subcut QPM Primary Care Provider: Linden Chavez Referrals: Linden Chavez DO [Primary Care Provider] - 3-5 Days
[2023-09-29 21:53] LABS: Absolute Lymphocyte Count 1.47 X10^3/uL (0.83-4.51); Absolute Neutrophil Count 8.5 X10^3/uL (2.0-7.7); Basophil# 0.07 X10^3/uL; Basophil% 0.6 % (0-1); Eosinophil# 0.18 X10^3/uL; Eosinophils% 1.7 % (0-5); Hematocrit 41.1 % (40-54); Lymphocyte # 1.47 X10^3/ul (0.83-4.51); Lymphocyte % 13.5 % (19-41); Mean Corp Hgb Conc 34.1 g/dL (32-36); Mean Corpuscular Hgb 28.1 pg (27.0-32.0); Mean Corpuscular Volume 82.5 fL (80-94); Mean Platelet Vol. 9.2 fl (6.2-12.0); Monocyte# 0.57 X10^3/uL; Monocyte% 5.2 % (0-10); NRBC Flagged by Analyzer 0 % (0-5); Neutrophil # 8.54 X10^3/uL (2.7-7.7); Neutrophil % 78.5 % (47-70); Platelet Count 226 K/mm3 (150-450); RBC Distribution Width CV 13.4 % (11.6-14.6); RBC Distribution Width SD 39.8 fl (35.1-43.9); Red Blood Count 4.98 M/mm3 (4.6-6.2); White Blood Count 10.9 K/mm3 (4.4-11.0)
[2023-09-29] MEDS: Ondansetron 4 MG/2 ML Vial IV (21:57)
[2023-09-29] MEDS: 0.9% Normal Saline (1000mL) 1,000 ML 1000 ML IV (21:57)
[2023-09-29 22:18] LABS: ALB/GLOB Ratio 0.9 RATIO (0.9-2.4); AST(SGOT) 9 U/L (15-37); Alanine Aminotransfer ALT/SGPT 14 U/L (16-61); Albumin, Serum 3.5 g/dL (3.2-5.0); Alkaline Phosphatase 100 U/L (45-117); Anion Gap 4 (5-15); BUN 17 mg/dL (7-18); BUN/Creat Ratio 16.5 RATIO (10-20); Calcium,Total 8.7 mg/dL (8.5-10.1); Chloride 105 mmol/L (98-107); Creatinine, Serum 1.03 mg/dL (0.70-1.30); EST Glomerular Filtration Rate 77 mL/min (>60); Est Glom Filt Rate - Afr Amer 94 mL/min (>60); Estimated Creatinine Clearance 92.51 ml/min; Globulin 3.7 g/dL (2.2-4.2); Glucose 213 mg/dL (74-106); Lipase 13 U/L (13-75); Potassium 3.9 mmol/L (3.5-5.1); Protein, Total 7.2 g/dL (6.4-8.2); Sodium Level 137 mmol/L (136-145)
[2023-09-29] MEDS: metroNIDAZOLE 500 MG Tablet PO (23:17)
[2023-09-29] MEDS: Ciprofloxacin 500 MG Tablet PO (23:17)
[2023-09-29 23:39] VITALS: BP 132/83
== END 2023-09-29 23:39 | disposition home or self-care (01) ==
PROVIDERS: Emergency Provider Emergency Medicine; PCP Family Medicine; Visit Provider Emergency Medicine
DX: K52.9 Noninfective gastroenteritis and colitis, unspecified (principal); J44.9 Chronic obstructive pulmonary disease, unspecified; E11.9 Type 2 diabetes mellitus without complications; Z79.4 Long term (current) use of insulin; I10 Essential (primary) hypertension; G47.30 Sleep apnea, unspecified; G89.29 Other chronic pain; I25.2 Old myocardial infarction; Z79.84 Long term (current) use of oral hypoglycemic drugs; Z79.899 Other long term (current) drug therapy; Z95.5 Presence of coronary angioplasty implant and graft
CPT/HCPCS: 74177; 80053; 83690; 85025; 96361; 96374; 99282; J7030; Q9967; A4216; J2405

== ENCOUNTER 2023-09-30 23:39 | Emergency (ER) | payer MEDICAID, SELFPAY ==
[2023-09-30 23:40] VITALS: BP 127/77; PULSE 77; RESP 18; TEMP 36.5; O2SAT 95; BMI 28.3
[2023-10-01] MEDS: Ketorolac 15 MG/ML Vial IV (02:08)
[2023-10-01] MEDS: Dicyclomine 10 MG Capsule 20 MG PO (02:08)
[2023-10-01] MEDS: 0.9% Normal Saline (500mL Bag) 500 ML 999 ML IV (02:09)
[2023-10-01 02:17] LABS: Absolute Lymphocyte Count 1.41 X10^3/uL (0.83-4.51); Absolute Neutrophil Count 6.4 X10^3/uL (2.0-7.7); Basophil# 0.03 X10^3/uL; Basophil% 0.3 % (0-1); Eosinophil# 0.19 X10^3/uL; Eosinophils% 2.2 % (0-5); Hematocrit 39.4 % (40-54); Hemoglobin 13.4 g/dL (13.0-16.5); Lymphocyte # 1.41 X10^3/ul (0.83-4.51); Lymphocyte % 16.4 % (19-41); Mean Corpuscular Hgb 28.7 pg (27.0-32.0); Mean Corpuscular Volume 84.4 fL (80-94); Mean Platelet Vol. 9.4 fl (6.2-12.0); Monocyte# 0.54 X10^3/uL; Monocyte% 6.3 % (0-10); NRBC Flagged by Analyzer 0 % (0-5); Neutrophil # 6.43 X10^3/uL (2.7-7.7); Neutrophil % 74.6 % (47-70); Platelet Count 211 K/mm3 (150-450); RBC Distribution Width CV 13.7 % (11.6-14.6); RBC Distribution Width SD 41.7 fl (35.1-43.9); Red Blood Count 4.67 M/mm3 (4.6-6.2); White Blood Count 8.6 K/mm3 (4.4-11.0)
[2023-10-01 02:34] LABS: Anion Gap 4 (5-15); BUN 17 mg/dL (7-18); BUN/Creat Ratio 14.9 RATIO (10-20); Calcium,Total 8.8 mg/dL (8.5-10.1); Chloride 105 mmol/L (98-107); Creatinine, Serum 1.14 mg/dL (0.70-1.30); EST Glomerular Filtration Rate 69 mL/min (>60); Est Glom Filt Rate - Afr Amer 83 mL/min (>60); Estimated Creatinine Clearance 83.59 ml/min; Glucose 429 mg/dL (74-106); Sodium Level 137 mmol/L (136-145)
--- NOTE | 2023-10-01 02:51 | EDS_ITS ---
HPI HPI - GI History of Present Illness Chief Complaint: Diarrhea Informant: patient Narrative Narrative: Patient states he has been having diarrhea since the summer. It is September. He was here yesterday and diagnosed with colitis and placed on Cipro and Flagyl, he just got the prescriptions and has had 1 dose of each. He states he had 4 bouts of diarrhea tonight that were explosive and one of them was black. This is the reason he returns. He states he feels very poorly, malaise, and achy all over. Denies any fevers or chills. Denies any other new symptoms. No nausea, vomiting, abdominal pain, chest pain, shortness of breath, rash, bright red blood per rectum. When asked about [id number] medications initially he said no, but then admitted to taking a dose of Pepto-Bismol earlier. 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 Restless legs Sleep apnea Home Medications metformin 500 mg tablet,extended release 24 hr 500 mg PO BID diabetes 05/02/19 [History Last Taken 03/18/22] fluconazole 200 mg tablet (Diflucan) 200 mg PO DAILY antibiotic 03/19/22 [History Last Taken 03/18/22] glipizide 5 mg tablet 5 mg PO BID diabetes 03/19/22 [History Last Taken 03/18/22] insulin glargine 100 unit/mL (3 mL) subcutaneous pen (Lantus Solostar U-100 Insulin) 10 unit subcut BID diabetes 03/19/22 [History Last Taken 03/18/22] ondansetron 4 mg disintegrating tablet 4 mg PO Q8H PRN nausea and vomiting #10 tabs 04/26/22 [Rx Last Taken Unknown] dicyclomine 20 mg tablet 20 mg PO TID PRN abdominal cramping #20 tabs 08/07/22 [Rx Last Taken Unknown] diphenoxylate-atropine 2.5 mg-0.025 mg tablet (Lomotil) 1 tab PO 4X/DAY PRN PRN diarrhea 5 days #20 tabs 10/30/22 [Rx Last Taken Unknown] cyclobenzaprine 10 mg tablet 10 mg PO TID PRN Muscle Spasm #20 TABLETS 08/26/23 [Rx Last Taken Unknown] hydrocortisone 1 % topical cream 1 applic topical TID PRN skin irritation #28.4 grams 08/26/23 [Rx Last Taken Unknown] ibuprofen 600 mg tablet 600 mg PO Q8H PRN PRN pain #20 TABLETS 08/26/23 [Rx Last Taken Unknown] ciprofloxacin HCl 500 mg tablet (Cipro) 500 mg PO BID #20 tabs 09/29/23 [Rx Last Taken Unknown] insulin glargine 100 unit/mL subcutaneous solution (Lantus U-100 Insulin) 1 unit subcut QPM 09/29/23 [History Last Taken Unknown] levothyroxine 100 mcg tablet 100 mcg PO DAILY 09/29/23 [History Last Taken Unknown] metronidazole 500 mg tablet 500 mg PO BID 10 days #20 tabs 09/29/23 [Rx Last Taken Unknown] Allergy/AdvReac Type Severity Reaction Status Date / Time diphenhydramine HCl Allergy Rash Verified 09/30/23 23:40 [From Benadryl] Penicillins Allergy Rash Verified 09/30/23 23:40 venom-honey bee Allergy Swelling Verified 09/30/23 23:40 [bee venom (honey bee)] Surgical History History of coronary artery stent placement Hx of inguinal herniorrhaphy Hx of left knee surgery Social History household members: none Smoking Status: Never smoker substance use type: does not use ROS ROS ED Constitutional Constitutional ED: Reports body ache(s) and malaise; Denies chills or fever(s) Eyes Eyes: Denies change in vision or diplopia ENT ENT ED: Denies rhinorrhea or sore throat Cardiovascular Cardiovascular: Denies chest pain or palpitations Respiratory/Chest Respiratory/Chest: Denies cough or dyspnea Gastrointestinal Gastrointestinal: Reports diarrhea and other Details: Black stool see HPI ; Denies abdominal pain, nausea or vomiting Genitourinary Genitourinary ED: Denies dysuria or hematuria Musculoskeletal Musculoskeletal: Denies back pain or neck pain Integumentary Denies abscess or rash Neurologic Neurologic: Denies headache(s), paresthesias or weakness Psychiatric Psychiatric: Reports anxiety; Denies suicidal thoughts EXAM Physical Exam Const Vital Signs: 09/30/23 23:40 Temperature 97.7 F L Temperature Source Temporal Pulse Rate 77 Respiratory Rate 18 Blood Pressure 127/77 H Blood Pressure Mean 93 Pulse Ox 95 Oxygen Delivery Method Room Air Positive well nourished and well developed General Appearance ED: well developed and NAD HEENT Reports moist mucous membranes normocephalic and atraumatic Eyes PERRL and EOMs intact bilaterally Neck full ROM and supple Resp normal respiratory effort and clear to auscultation bilaterally Cardio regular rate, regular rhythm and no murmurs GI non-tender and non-distended GI Narrative: Rectal benign, no tenderness, no melanotic stool or blood. Auscultation: normoactive bowel sounds Palpation: soft Back/Spine no CVA tenderness General Back: other FROM Extremity normal to inspection General Extremety ED: Negative for edema, pulses abnormal or tenderness General Extremity: Negative for edema or pulses abnormal Neuro oriented x3, CN's II-XII intact bilaterally and no sensory deficits noted Sensorium / Orientation: awake and alert Motor Exam: strength 5/5 throughout Skin no rashes or lesions noted and no wounds MDM MDM MDM Narrative Medical decision making narrative: Hemoccult performed and negative. Other than hyperglycemia at 429 the patient's blood tests are normal, he is not anemic, nor does he have an elevated BUN to suggest an upper GI bleed here. Patient reassured I think his black stools caused by the Pepto-Bismol that he took. Advised to continue taking the prescribed medications and follow-up, we gave him a dose of insulin to bring his sugar down. He also felt little better after IV fluids, Toradol, dicyclomine, and states now he is nauseated although he was not before. Offered Zofran which he accepted, but before we could order it and give it, he left, ambulatory w/o any apparent difficulty. Lab Data Attestation: I reviewed the patient's lab results. Labs: Laboratory Results - last 24 hr 10/01/23 02:00 WBC 8.6 RBC 4.67 Hgb 13.4 Hct 39.4 L MCV 84.4 MCH 28.7 MCHC 34.0 RDW Std Deviation 41.7 RDW Coeff of Manjinder 13.7 Plt Count 211 MPV 9.4 Immature Gran % (Auto) 0.200 Neut % (Auto) 74.6 H Lymph % (Auto) 16.4 L Colbert % (Auto) 6.3 Eos % (Auto) 2.2 Baso % (Auto) 0.3 Absolute Neuts (auto) 6.4 Absolute Lymphs (auto) 1.41 Nucleated RBC % 0 Sodium 137 Potassium 4.0 Chloride 105 Carbon Dioxide 28.0 Anion Gap 4 L BUN 17 Creatinine 1.14 Estim Creat Clear Calc 83.59 Est GFR (MDRD) Af Amer 83 Est GFR (MDRD) Non-Af 69 BUN/Creatinine Ratio 14.9 Glucose 429 H Calcium 8.8 Discharge Plan Triage Chief Complaint: Diarrhea ED Provider: Live Ashley Dx/Rx/DC Orders Clinical Impression: Stool color black, Colitis, Hyperglycemia due to type 2 diabetes mellitus Instructions: ED Diabetic Hyperglycemia Prescriptions: No Action metformin 500 MG tablet 500 mg PO BID Patient Comments: diabetes insulin glargine [Lantus Solostar U-100 Insulin] 100 unit/mL (3 mL) Insulin Pen 10 unit SUBCUT BID fluconazole [Diflucan] 200 mg tablet 200 mg PO DAILY glipizide 5 mg tablet 5 mg PO BID Rx Instructions: Hold if glucose less than 130 mg/dl ondansetron 4 mg tablet,disintegrating 4 mg PO Q8H PRN (Reason: nausea and vomiting) Qty: 10 0RF dicyclomine 20 mg tablet 20 mg PO TID PRN (Reason: abdominal cramping) Qty: 20 0RF diphenoxylate-atropine [Lomotil] 2.5-0.025 mg tablet 1 tab PO 4X/DAY PRN PRN (Reason: diarrhea) 5 Days Qty: 20 0RF ibuprofen 600 mg tablet 600 mg PO Q8H PRN PRN (Reason: pain) Qty: 20 0RF cyclobenzaprine 10 mg tablet 10 mg PO TID PRN (Reason: Muscle Spasm) Qty: 20 0RF hydrocortisone 1 % cream 1 applic topical TID PRN (Reason: skin irritation) Qty: 28.4 0RF levothyroxine 100 mcg tablet 100 mcg PO DAILY Patient Comments: Take 1 tab by mouth once daily on an empty stomach insulin glargine [Lantus U-100 Insulin] 100 unit/mL solution 1 unit subcut QPM ciprofloxacin HCl [Cipro] 500 mg tablet 500 mg PO BID Qty: 20 0RF metronidazole 500 mg tablet 500 mg PO BID 10 Days Qty: 20 0RF Primary Care Provider: Linden Chavez Referrals: Linden Chavez, DO [Primary Care Provider] - Activity Restrictions/Additional Instructions: Pepto-Bismol will turn his stools black. This is an expected side effect of that medication, you are testing negative for blood, so likely due to that medication. If you take it in the future and to turn your stool black temporarily, you do not need to be concerned. If you see blood return to the ER. Disposition Disposition: Home, Self Care Discharge Date/Time: 10/01/23 03:09
[2023-10-01] MEDS: Insulin Lispro 100 UNIT/ML INSULN.PEN 16 UNIT SC (03:06)
== END 2023-10-01 03:09 | disposition home or self-care (01) ==
PROVIDERS: Emergency Provider Emergency Medicine; PCP Family Medicine; Visit Provider Emergency Medicine
DX: K52.9 Noninfective gastroenteritis and colitis, unspecified (principal); J44.9 Chronic obstructive pulmonary disease, unspecified; E11.65 Type 2 diabetes mellitus with hyperglycemia; I25.2 Old myocardial infarction; G47.30 Sleep apnea, unspecified; Z95.5 Presence of coronary angioplasty implant and graft
CPT/HCPCS: 80048; 82274; 85025; 96374; 99283; J7040; A4216

== ENCOUNTER 2023-11-22 14:19 | Emergency (ER) | payer MEDICAID, SELFPAY ==
[2023-11-22 14:21] VITALS: BP 130/81; PULSE 72; RESP 18; TEMP 36.4; O2SAT 96; BMI 26.2
--- NOTE | 2023-11-22 15:04 | RAD_ITS ---
STUDY: X-RAY CHEST REASON FOR EXAM: Male, 63 years old. CAD TECHNIQUE: Single AP portable view of the chest. COMPARISON: Comparison is made with prior study dated December 11, 2022. FINDINGS: EKG electrodes are seen. Stable elevation of the right hemidiaphragm with the increased markings with areas of confluence at the right lung base suggestive of scarring. There is no demonstrated pleural abnormality. Normal size heart. Normal mediastinum and marcie. Normal visualized pulmonary arteries. There is atherosclerotic tortuosity of the aortic arch and descending thoracic aorta. Normal visualized thoracic spine. Normal visualized ribs, clavicles, and shoulders. There is no demonstrated abnormality of the visualized soft tissue structures of the upper abdomen. RAD/Chest 1 View (Portable) IMPRESSION: Stable examination. Electronically Signed: Brent Gray MD at 15:48 EST ,
--- NOTE | 2023-11-22 15:05 | EX.ED.DYSGE1 ---
HPI History of Present Illness Chief Complaint: Weakness Narrative Narrative: 63-year-old male past medical history of hypertension, diabetes, presents with generalized weakness that started this morning when he woke up. He states yesterday everything was fine. States he feels generally weak, and tired as if he does not want to get out of bed. He denies any fevers or chills, no cough, no nausea or vomiting. He states he has chronic problems with diarrhea. He does not have any abdominal pain. He states that while he was at his [id number], he felt weak and fell, but did not hurt himself. He presents via EMS with generalized weakness. He states he has been eating and drinking well, to the point where he had 4 hotdogs prior to arrival. He denies any chest pain or shortness of breath. No exacerbating or alleviating factors. 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 Restless legs Sleep apnea Home Medications metformin 500 mg tablet,extended release 24 hr 500 mg PO BID diabetes 05/02/19 [History Last Taken 03/18/22] fluconazole 200 mg tablet (Diflucan) 200 mg PO DAILY antibiotic 03/19/22 [History Last Taken 03/18/22] glipizide 5 mg tablet 5 mg PO BID diabetes 03/19/22 [History Last Taken 03/18/22] insulin glargine 100 unit/mL (3 mL) subcutaneous pen (Lantus Solostar U-100 Insulin) 10 unit subcut BID diabetes 03/19/22 [History Last Taken 03/18/22] ondansetron 4 mg disintegrating tablet 4 mg PO Q8H PRN nausea and vomiting #10 tabs 04/26/22 [Rx Last Taken Unknown] dicyclomine 20 mg tablet 20 mg PO TID PRN abdominal cramping #20 tabs 08/07/22 [Rx Last Taken Unknown] diphenoxylate-atropine 2.5 mg-0.025 mg tablet (Lomotil) 1 tab PO 4X/DAY PRN PRN diarrhea 5 days #20 tabs 10/30/22 [Rx Last Taken Unknown] cyclobenzaprine 10 mg tablet 10 mg PO TID PRN Muscle Spasm #20 TABLETS 08/26/23 [Rx Last Taken Unknown] hydrocortisone 1 % topical cream 1 applic topical TID PRN skin irritation #28.4 grams 08/26/23 [Rx Last Taken Unknown] ibuprofen 600 mg tablet 600 mg PO Q8H PRN PRN pain #20 TABLETS 08/26/23 [Rx Last Taken Unknown] ciprofloxacin HCl 500 mg tablet (Cipro) 500 mg PO BID #20 tabs 09/29/23 [Rx Last Taken Unknown] insulin glargine 100 unit/mL subcutaneous solution (Lantus U-100 Insulin) 1 unit subcut QPM 09/29/23 [History Last Taken Unknown] levothyroxine 100 mcg tablet 100 mcg PO DAILY 09/29/23 [History Last Taken Unknown] metronidazole 500 mg tablet 500 mg PO BID 10 days #20 tabs 09/29/23 [Rx Last Taken Unknown] Allergy/AdvReac Type Severity Reaction Status Date / Time diphenhydramine HCl Allergy Rash Verified 11/22/23 14:24 [From Benadryl] Penicillins Allergy Rash Verified 11/22/23 14:24 venom-honey bee Allergy Swelling Verified 11/22/23 14:24 [bee venom (honey bee)] Surgical History History of coronary artery stent placement Hx of inguinal herniorrhaphy Hx of left knee surgery Social History household members: none Smoking Status: Never smoker substance use type: does not use ROS ROS ED ROS Narrative Constitutional: No fever, no chills. Generalized weakness. Positive malaise and fatigue. HEENT: No sore throat. No neck pain. No loss of vision. No rhinorrhea. Cardiovascular: No chest pain. No palpitations. No pedal edema. Respiratory: No cough, no shortness of breath. Abdominal: No abdominal pain. No nausea. No vomiting. Genitourinary: No dysuria. No hematuria. Musculoskeletal: No myalgias. No arthralgias. Neurologic: No headaches. No dizziness. No lightheadedness. Skin: No rash. No change in color. Psychiatric: No depression. No anxiety. EXAM Physical Exam Narrative Exam Narrative: Afebrile. Vital signs noted. HEENT: Normocephalic. Atraumatic. PERRL, EOMI. Neck soft and supple. No point tenderness or step off. Cardiovascular: Regular rate and rhythm. No murmurs, rubs, or gallops appreciated. Respiratory: No tachypnea. Lungs clear to auscultation bilaterally. Gastrointestinal: Abdomen soft, nontender, with normoactive bowel sounds. No rebound or guarding. Neurological: Awake. Alert. Oriented. Nonfocal, nonlateralizing. Skin: No rash. Normal color. No pallor. Musculoskeletal: No pedal edema. Full range of motion extremities. Const Vital Signs: 11/22/23 14:21 11/22/23 14:24 11/22/23 16:39 Temperature 97.6 F L Temperature Source Temporal Pulse Rate 72 76 Respiratory Rate 18 16 Respiratory Effort Normal Non-Labored Respiratory Pattern Normal Blood Pressure 130/81 H 138/89 H Blood Pressure Mean 97 105 Pulse Ox 96 97 Oxygen Delivery Method Room Air Room Air MDM MDM MDM Narrative Medical decision making narrative: In the differential diagnosis is dehydration versus intravascular volume depletion. He may have an occult urinary tract infection or pneumonia, but his vital signs appear normal, he is not tachycardic. Pulse ox 96% on room air. Comprehensive workup was pursued. I did review his prior labs and has had acute kidney injury in the past. He will be bolused normal saline 1 L intravenously. I do not feel he needs to be swabbed for COVID or influenza because he denies any upper respiratory infection type symptoms, or cough. EKG was obtained and interpreted by myself independently as normal sinus rhythm with PACs but no evidence of an acute STEMI. I reviewed his laboratory work and he has normal white count of 7.4, hemoglobin normal at 15.7, hematocrit 45.6, platelet count normal at 220. Review of his electrolyte panel shows normal sodium of 137, potassium normal at 3.8, chloride 101. BUN is normal at 13 with creatinine of 0.94, no evidence of dehydration. Although glucose is elevated at 357, his anion gap is low at 3. I have no concern for diabetic ketoacidosis. AST is slightly low at 9 which I think is nonspecific and ALT is 16. High-sensitivity troponin is 5. This is greater than a 6-hour troponin as he started having symptoms of weakness earlier this morning. Urinalysis was obtained and reviewed. He has 0-5 white cells, I do not feel antibiotics are indicated. At this point in time, upon repeat examination he states he is feeling improved after 1 L fluid bolus. I do not feel that he requires observation. His [id number] is here. They are comfortable with discharge. Return instructions reviewed. Disposition is discharged home in stable condition. History & Record Review Discussion w/independent historian: Patient Additional record(s) reviewed:: Prior ED visit and Prior labs Lab Data Attestation: I reviewed the patient's lab results. Labs: Laboratory Results - last 24 hr 11/22/23 11/22/23 14:08 16:30 WBC 7.4 RBC 5.59 Hgb 15.7 Hct 45.6 MCV 81.6 MCH 28.1 MCHC 34.4 RDW Std Deviation 39.2 RDW Coeff of Manjinder 13.4 Plt Count 220 MPV 9.3 Immature Gran % (Auto) 0.300 Neut % (Auto) 70.9 H Lymph % (Auto) 18.9 L Chambers % (Auto) 5.0 Eos % (Auto) 4.5 Baso % (Auto) 0.4 Absolute Neuts (auto) 5.3 Absolute Lymphs (auto) 1.40 Nucleated RBC % 0 Sodium 137 Potassium 3.8 Chloride 101 Carbon Dioxide 33.0 H Anion Gap 3 L BUN 13 Creatinine 0.94 Estim Creat Clear Calc 101.37 Est GFR (MDRD) Af Amer 105 Est GFR (MDRD) Non-Af 86 BUN/Creatinine Ratio 13.9 Glucose 357 H Calcium 10.2 H Total Bilirubin 0.80 AST 9 L ALT 16 Alkaline Phosphatase 100 Troponin I High Sens 5 Total Protein 7.6 Albumin 3.7 Globulin 3.9 Albumin/Globulin Ratio 0.9 Urine Color Yellow Urine Clarity Sl. Cloudy Urine pH 5.0 Ur Specific Hampton 1.020 Urine Protein 15 H Urine Glucose (UA) 1000 H Urine Ketones Negative Urine Occult Blood Negative Urine Nitrite Negative Urine Bilirubin Negative Urine Urobilinogen 1 H Ur Leukocyte Esterase 25 H Urine RBC 0 SEEN Urine WBC 0-5 SEEN Ur Squamous Epith Cells 0-5 SEEN Urine Bacteria RARE Urine Mucus RARE Urine Yeast RARE Radiography Diagnostic Testing: Clinical Impression(s) from Imaging Studies Chest X-Ray 11/22/23 15:04 IMPRESSION: Stable examination. Electronically Signed: Brent Gray MD at 15:48 EST , Discharge Plan Triage Chief Complaint: Weakness ED Provider: Barry Mathew Dx/Rx/DC Orders Prescriptions: No Action metformin 500 MG tablet 500 mg PO BID Patient Comments: diabetes insulin glargine [Lantus Solostar U-100 Insulin] 100 unit/mL (3 mL) Insulin Pen 10 unit SUBCUT BID fluconazole [Diflucan] 200 mg tablet 200 mg PO DAILY glipizide 5 mg tablet 5 mg PO BID Rx Instructions: Hold if glucose less than 130 mg/dl ondansetron 4 mg tablet,disintegrating 4 mg PO Q8H PRN (Reason: nausea and vomiting) Qty: 10 0RF dicyclomine 20 mg tablet 20 mg PO TID PRN (Reason: abdominal cramping) Qty: 20 0RF diphenoxylate-atropine [Lomotil] 2.5-0.025 mg tablet 1 tab PO 4X/DAY PRN PRN (Reason: diarrhea) 5 Days Qty: 20 0RF ibuprofen 600 mg tablet 600 mg PO Q8H PRN PRN (Reason: pain) Qty: 20 0RF cyclobenzaprine 10 mg tablet 10 mg PO TID PRN (Reason: Muscle Spasm) Qty: 20 0RF hydrocortisone 1 % cream 1 applic topical TID PRN (Reason: skin irritation) Qty: 28.4 0RF levothyroxine 100 mcg tablet 100 mcg PO DAILY Patient Comments: Take 1 tab by mouth once daily on an empty stomach insulin glargine [Lantus U-100 Insulin] 100 unit/mL solution 1 unit subcut QPM ciprofloxacin HCl [Cipro] 500 mg tablet 500 mg PO BID Qty: 20 0RF metronidazole 500 mg tablet 500 mg PO BID 10 Days Qty: 20 0RF Primary Care Provider: Linden Chavez Referrals: Linden Chavez DO [Primary Care Provider] -
[2023-11-22] MEDS: 0.9% Normal Saline (1000mL) 1,000 ML 1000 ML IV (15:16)
[2023-11-22 15:24] LABS: Absolute Neutrophil Count 5.3 X10^3/uL (2.0-7.7); Basophil# 0.03 X10^3/uL; Basophil% 0.4 % (0-1); Eosinophil# 0.33 X10^3/uL; Eosinophils% 4.5 % (0-5); Hematocrit 45.6 % (40-54); Hemoglobin 15.7 g/dL (13.0-16.5); Lymphocyte % 18.9 % (19-41); Mean Corp Hgb Conc 34.4 g/dL (32-36); Mean Corpuscular Hgb 28.1 pg (27.0-32.0); Mean Corpuscular Volume 81.6 fL (80-94); Mean Platelet Vol. 9.3 fl (6.2-12.0); Monocyte# 0.37 X10^3/uL; NRBC Flagged by Analyzer 0 % (0-5); Neutrophil # 5.26 X10^3/uL (2.7-7.7); Neutrophil % 70.9 % (47-70); Platelet Count 220 K/mm3 (150-450); RBC Distribution Width CV 13.4 % (11.6-14.6); RBC Distribution Width SD 39.2 fl (35.1-43.9); Red Blood Count 5.59 M/mm3 (4.6-6.2); White Blood Count 7.4 K/mm3 (4.4-11.0)
[2023-11-22 15:53] LABS: ALB/GLOB Ratio 0.9 RATIO (0.9-2.4); AST(SGOT) 9 U/L (15-37); Alanine Aminotransfer ALT/SGPT 16 U/L (16-61); Albumin, Serum 3.7 g/dL (3.2-5.0); Alkaline Phosphatase 100 U/L (45-117); Anion Gap 3 (5-15); BUN 13 mg/dL (7-18); BUN/Creat Ratio 13.9 RATIO (10-20); Calcium,Total 10.2 mg/dL (8.5-10.1); Chloride 101 mmol/L (98-107); Creatinine, Serum 0.94 mg/dL (0.70-1.30); EST Glomerular Filtration Rate 86 mL/min (>60); Est Glom Filt Rate - Afr Amer 105 mL/min (>60); Estimated Creatinine Clearance 101.37 ml/min; Globulin 3.9 g/dL (2.2-4.2); Glucose 357 mg/dL (74-106); Potassium 3.8 mmol/L (3.5-5.1); Protein, Total 7.6 g/dL (6.4-8.2); Sodium Level 137 mmol/L (136-145); Troponin-I HS 5 pg/mL (3.0-78.0)
[2023-11-22 16:39] VITALS: BP 138/89; PULSE 76; RESP 16; O2SAT 97
[2023-11-22 16:42] LABS: Red Blood Cells-Urine 0 SEEN /hpf (0-5)
[2023-11-22 16:52] LABS: Color, Urine Yellow (Yellow); Glucose, Dipstick 1000 mg/dl (Normal); Ketone-Dipstick Negative (Negative); Leukocyte Esterase-Dipstick 25 /ul (Negative); Nitrite-Dipstick Negative (Negative); Occult Blood-Urine Negative /ul (Negative); Protein-Dipstick 15 mg/dl (Negative); Urine Bilirubin Dipstick Negative (Negative); Urine Clarity Sl. Cloudy (Clear); Urine Urobilinogen 1 mg/dl (Normal)
[2023-11-22 17:09] LABS: Bacteria RARE /hpf (None Seen); Mucous, Urine RARE /hpf (<or=2+); White Blood Cells 0-5 SEEN /hpf (0-5); Yeast-Urine RARE /hpf (None Seen)
[2023-11-22 17:10] LABS: Squamous Epithelial Cells - UA 0-5 SEEN /hpf (0-5)
[2023-11-22 17:37] VITALS: BP 118/74; PULSE 71; RESP 16; O2SAT 98
== END 2023-11-22 17:41 | disposition home or self-care (01) ==
PROVIDERS: Emergency Provider Emergency Medicine; PCP Family Medicine; Visit Provider Emergency Medicine
DX: R53.1 Weakness (principal); J44.9 Chronic obstructive pulmonary disease, unspecified; E11.9 Type 2 diabetes mellitus without complications; I25.2 Old myocardial infarction; G47.30 Sleep apnea, unspecified; Z95.5 Presence of coronary angioplasty implant and graft
CPT/HCPCS: 71045; 80053; 81001; 84484; 85025; 93005; 96360; 99283; J7030

== ENCOUNTER 2023-12-08 12:38 | Emergency (ER) | payer MEDICAID, SELFPAY ==
[2023-12-08 12:40] VITALS: BP 115/82; PULSE 75; RESP 16; TEMP 37.6; O2SAT 95
[2023-12-08] MEDS: Meclizine HCl 25 MG Tablet PO (13:17)
[2023-12-08] MEDS: proMETHazine 25 MG/ML Syringe 12.5 MG IM (13:17)
[2023-12-08 14:42] VITALS: RESP 18
--- OUTSIDE RECORDS SUMMARY | 2023-12-08 14:58 | XMS RPT_ITS | CCD ---
Author Name Unknown Address [address] [place] [address] Organization [facility] Care Team Providers Care Paper Stacker Name Role Phone Unavailable Primary Care Provider Unavailabl e Allergies Allergy Classification Reported Allergen(s) Allergy Type Date of Onset Reaction(s) Facility (1 source) bee venom Propensity to adverse reactions to drug 9 [place], [place] (2 sources) diphenhydrAMINE; Translations: [DIPHENHYDRAMINE] Drug Allergy 1 [place] (2 sources) Penicillins; Translations: [PENICILLINS] Propensity to adverse reactions to drug 1 [place] (1 source) diphenhydrAMINE Drug Allergy 1 Swelling [facility] Work Phone: (1 source) Penicillins Drug Allergy 1 Rash [facility] Work Phone: (2 sources) Bee Sting; Translations: [BEE STING] Allergy to substance 1 Swelling [facility] Work Phone: Medications Current Medications Medication Drug Class(es) Dates Sig (Normalized) Sig (Original) bisacodyl 10 mg rectal suppository (1 source) Stimulant Laxative Start: 10-05-2019 bisacodyl (DULCOLAX) suppository 10 mg canagliflozin 100 mg oral tablet (1 source) Sodium-Glucose Cotransporter 2 Inhibitor take 1 tablet by mouth once daily before breakfast canagliflozin (INVOKANA) 100 MG TABS tablet Take 100 mg by mouth every morning (before breakfast) 0 Active 0.4 ml enoxaparin sodium 100 mg/ml prefilled syringe (1 source) Low Molecular Weight Heparin Start: 10-05-2019 enoxaparin (LOVENOX) injection 40 mg glucagon (rdna) 1 mg injection (1 source) Antihypoglycemic Agent Start: 10-05-2019 glucagon (rDNA) injection 1 mg 150 ml glucose 50 mg/ml injection (3 sources) Start: 10-05-2019 glucose (GLUTOSE) 40 % oral gel 15 g Completed/Discontinued Medications Medication Drug Class(es) Dates Sig (Normalized) Sig (Original) [id number] 200 actuat albuterol 0.09 mg/actuat metered dose inhaler (1 source) beta2-Adrenergic Agonist Start: 01-08-2020 take 2 puff(s) by inhalation every four hours as needed albuterol HFA (VENTOLIN HFA) 90 mcg/actuation inhaler Indications: Chronic obstructive pulmonary disease, unspecified COPD type (HCC) Inhale 2 Puffs as instructed every 4 hours as needed. 1 Inhaler 01/08/2020 Active Problems Active Problems Problem Classification Problem Date Documented Da te Episodic/Chronic Coronary atherosclerosis and other heart disease (2 sources) Coronary arteriosclerosis; Translations: [Atherosclerotic heart disease of [place] coronary artery without angina pectoris] Onset: 06-22-2011 10-26-2021 Chronic Diabetes mellitus without complication (1 source) Insulin treated type 2 diabetes mellitus; Translations: [Type 2 diabetes mellitus without complications] Onset: 06-22-2011 06-22-2011 Chronic Essential hypertension (1 source) Hypertensive disorder; Translations: [Essential (primary) hypertension] Onset: 06-22-2011 06-22-2011 Chronic Other disorders of stomach and duodenum (2 sources) Pyloric obstruction; Translations: [Gastric outlet obstruction] Onset: 10-05-2019 10-05-2019 Episodic Other ear and sense organ disorders (1 source) Impacted cerumen of bilateral ears; Translations: [Impacted cerumen, bilateral] 08-18-2023 Episodic Thyroid disorders (1 source) Hypothyroidism; Translations: [Hypothyroidism, unspecified] Onset: 07-22-2011 07-22-2011 Chronic Past or Other Problems Problem Classification Problem Date Documented Da te Episodic/Chronic Administrative/social admission (1 source) Patient encounter status; Translations: [Encounter for disability determination] Onset: 11-30-2012 11-30-2012 Episodic Other connective tissue disease (1 source) Foot pain; Translations: [Pain in unspecified foot] Onset: 09-17-2011 09-17-2011 Episodic Spondylosis; intervertebral disc disorders; other back problems (2 sources) Low back pain; Translations: [Low back pain] Onset: 06-22-2011 06-22-2011 Episodic Results Test Name Value Interpretation Reference Range Facil ity Vital Signs Date Time Vital Sign Value Performing Clinician Facility 08-18-2023 15:51-0400 Body temperature 97.59 [degF] Jimmy Rachel SALON COORDINATOR.MILLINERY TEACHER Work Phone: [facility] 08-18-2023 15:51-0400 Body weight 102.97 kg Jimmy Ramos SALON COORDINATOR.MILLINERY TEACHER Work Phone: [facility] 08-18-2023 15:51-0400 Diastolic blood pressure 80 mm[Hg] Jimmy Ramos SALON COORDINATOR.MILLINERY TEACHER Work Phone: [facility] 08-18-2023 15:51-0400 Heart rate 74 /min Jimmy Ramos SALON COORDINATOR.MILLINERY TEACHER Work Phone: [facility] 08-18-2023 15:51-0400 Respiratory rate 20 /min Jimmy Ramos SALON COORDINATOR.MILLINERY TEACHER Work Phone: [facility] 08-18-2023 15:51-0400 SaO2% (BldA) [Mass fraction] 98 % Jimmy Ramos SALON COORDINATOR.MILLINERY TEACHER Work Phone: [facility] 08-18-2023 15:51-0400 Systolic blood pressure 127 mm[Hg] Jimmy Ramos SALON COORDINATOR.MILLINERY TEACHER Work Phone: [facility] 10-07-2019 07:48-0500 Body Temperature 96.1 [degF] [facility] 10-07-2019 07:48-0500 BP Diastolic 90 mm[Hg] [facility] , [place] 10-07-2019 07:48-0500 BP Systolic 139 mm[Hg] [facility] , [place] 10-07-2019 07:48-0500 Pulse (Heart Rate) 72 /min Aden Martinez [facility], [place] 10-07-2019 07:48-0500 Pulse Oximetry 95 % Aden Martinez [facility] , [place] 10-07-2019 07:48-0500 Respiratory Rate 16 /min Aden Martinez [facility], [place] 10-07-2019 06:06-0500 BMI (Body Mass Index) 26.7 kg/m2 Aden Martinez [facility], [place] 10-07-2019 06:06-0500 Body weight 102.15 kg [facility] , [place] 10-06-2019 12:03-0500 Height 195.[address] [facility] , [place] Encounters Encounter Date Encounter Type Care Provider Facility Start: 08-18-2023 End: 08-18-2023 ambulatory Facility:[facility] Start: 08-18-2023 End: 08-18-2023 Office outpatient visit 15 minutes Jimmy Ramos APRN.CNP Work Phone: [facility] Procedures Date Procedure Procedure Detail Performing Clinician Start: 10-07-2019 Gluc bld gluc mntr d ev cleared fda spec home use Aden Valentin Work Phone: Start: 10-06-2019 Gluc bld gluc mntr d ev cleared fda spec home use Aden Valentin Work Phone: Start: 10-06-2019 Gluc bld gluc mntr d ev cleared fda spec home use Aden Valentin Work Phone: Start: 10-06-2019 Gluc bld gluc mntr d ev cleared fda spec home use Aden Valentin Work Phone: Start: 10-06-2019 [facility] ENDOSCOPY REPORT 3m Scanning Start: 10-06-2019 Gluc bld gluc mntr d ev cleared fda spec home use Aden Valentin Work Phone: Start: 10-06-2019 Gluc bld gluc mntr d ev cleared fda spec home use Aden Valentin Work Phone: Start: 10-06-2019 Gluc bld gluc mntr d ev cleared fda spec home use Aden Valentin Work Phone: Start: 10-06-2019 Assay of magnesium Umberto Erickson Work Phone: Start: 10-06-2019 BASIC METABOLIC PANE L W/ REFLEX TO MG FOR LOW K Haroon Erickson Work Phone: Start: 10-06-2019 Blood count complete auto&auto difrntl wbc Haroon Erickson Work Phone: Start: 10-05-2019 Gluc bld gluc mntr d ev cleared fda spec home use Aden Valentin Work Phone: Start: 10-05-2019 Basic metabolic pane l calcium total Haroon Erickson Work Phone: Start: 10-05-2019 Blood count complete auto&auto difrntl wbc Haroon Erickson Work Phone: Start: 11-21-2013 Colonoscopy Jimmy justice SALON COORDINATOR.MILLINERY TEACHER Work Phone: Start: 06-22-2011 History of placement of stent for coronary artery disease S/P coronary artery stent placement Jimmy Ramos SALON COORDINATOR.MILLINERY TEACHER Work Phone: Plan of Treatment Date Care Activity Detail Author Start: 05-03-2026 Urine microalbumin profile DTaP,Tdap,Td Vaccine (2 - Td or Tdap) [facility] Start: 07-01-2023 Covid-19 Vaccine ( season) Covid-19 Vaccine ( season) [facility] Start: 07-01-2023 Influenza [facility] Start: 10-31-2022 Depression Assessment Depression Assessment [facility] Start: 05-13-2021 Hepatitis C antibody, confirmatory test Dilated Retinal Exam [facility] Start: 11-08-2020 Annual PCP Team Chronic Disease Visit Annual PCP Team Chronic Disease Visit [facility] Start: 10-06-2020 Creatinine monitoring Creatinine monitoring [facility] [place] Start: 10-06-2020 Potassium monitoring Potassium monitoring [facility], [place] Start: 2020 Hepatitis B Vaccine (1 of 3 - Risk 3-dose series) Hepatitis B Vaccine (1 of 3 - Risk 3-dose series) [facility] Start: 2020 RSV Vaccine (1 - 1-dose 60+ series) RSV Vaccine (1 - 1-dose 60+ series) [facility] Start: 02-17-2020 3 comp foot exam completed Diabetic Foot Exam [facility] Start: 07-14-2019 Hepatitis B screening Urine Albumin:Creatinine Ratio [facility] Start: 07-14-2019 Hepatitis B surface antibody level LDL Cholesterol [facility] Start: 07-01-2019 Influenza vaccination Flu vaccine (#1) [place] Start: 06-06-2019 Hemoglobin A1c/Hemoglobin.total in Blood HbA1C [facility] Start: 11-21-2018 Colonoscopy Colonoscopy [facility] Start: 11-21-2018 Colorectal Cancer Screening Colorectal Cancer Screening [facility] Start: 2015 Prostate Cancer Screening Discussion Prostate Cancer Screening Discussion [facility] Start: 06-08-2014 Fecal Occult Blood Fecal Occult Blood [facility] Start: 07-22-2012 Pneumococcal vaccination Pneumococcal Vaccine (2 - PCV) [facility] Start: 2010 Colon cancer screen colonoscopy Colon cancer screen colonoscopy [place] Start: 2010 Shingles Vaccine (1 of 2) Shingles Vaccine (1 of 2) [place] Start: 2010 Shingrix Vaccine (1 of 2) Shingrix Vaccine (1 of 2) [facility] Start: 2005 Cologuard (FIT-DNA) Cologuard (FIT-DNA) [facility] Start: [address] Colonography [facility] Start: 2005 Sigmoidoscopy Sigmoidoscopy [facility] Start: 2000 Diabetes screen Diabetes screen [place], [place] Start: 1978 BP Controlled (<130/80) BP Controlled (<130/80) [facility] in Start: 1978 HIV Screening HIV Screening [facility] Start: 1975 HIV screen HIV screen [place] Start: 1971 DTaP/Tdap/Td vaccine (1 - Tdap) DTaP/Tdap/Td vaccine (1 - Tdap) [place] Start: 1970 Lipid screen Lipid screen [place] Start: 1960 Hepatitis C screen Hepatitis C screen [place] Initiate Oxygen Ther apy Protocol Initiate Oxygen Therapy Protocol Respiratory Care Routine Daily until discontinued starting 10/05/2019 [place] Immunizations Immunization Date Immunization Notes Care Provider Fa janetmarcus 11-08-2019 influenza virus vacc ine, unspecified formulation Jimmy Ramos SALON COORDINATOR.MILLINERY TEACHER Work Phone: [facility] 08-08-2012 tetanus and diphther ia toxoids, adsorbed, preservative free, for adult use (2 Lf of tetanus toxoid and 2 Lf of diphtheria toxoid) Jimmy Ramos SALON COORDINATOR.MILLINERY TEACHER Work Phone: [facility] 07-22-2011 pneumococcal polysaccharide vaccine, 23 valent Jimmy Ramos SALON COORDINATOR.MILLINERY TEACHER Work Phone: [facility] Payers Date Payer Category Payer Medicaid [facility] MEDIC AID [facility] MEDICAID [id number] 2022-Present [phone] [address] [place] [address] Medicaid [id number] 2022 Medicaid [id number] Social History Date Type Detail Facility Start: 10-06-2019 End: 08-18-2023 Tobacco smoking status NHIS Never smoker [facility] Start: 10-06-2019 Alcohol intake Ex-drinker (finding) [place] Start: 10-06-2019 Alcohol Comment Last drinking 1992, Hx EtOH 10 years, never attended AA program [place], [place] Start: 1960 Sex Assigned At Not on file M [place] Start: 08-18-2023 Tobacco use and exposure Forme r smokeless tobacco user [facility] End: 07-01-1978 History of tobacco use User of smokeless tobacco [facility] Start: 08-18-2023 Alcohol intake Current non-dr fireman helper of alcohol (finding) [facility] Start: 10-05-2020 End: 08-18-2023 History of Social function [facility] Start: 10-05-2020 End: 08-18-2023 Tobacco use panel [facility] Adult Depression Screening Assessment 5 [facility] Start: 08-18-2023 Tobacco Comment Quit when he s wallowed a wad of chew playing baseball! [facility] Medical Equipment Procedure Code Equipment Code Equipment Origin al Text Equipment Identifier Dates Start: 09-16-2017 Progress note 08-18-2023 Note Date & Type Note Facility 08-18-2023 Note HNO ID: [id number] Author: Jimmy Ramos APRN.MILLINERY TEACHER Service: ? Author Type: Nurse Practitioner Type: Progress Notes Filed: 08/18/2023 4:15 PM Note Text: Subjective HPI Nontoxic-appearing male presents urgent care complaint cerumen impaction. Duration of symptoms 3 weeks. Associated symptoms decreased hearing. History of cerumen impaction this feels similar. Has not used any OTC medications. No ear trauma loss of hearing. Overall feels well. Denies any fever body aches chills productive cough chest pain shortness of breath pleuritic pain hemoptysis nausea vomiting abdominal pain change in bowel or bladder habits. Past medical history prescription medication use and allergies reviewed. .Patient presents with: Ear Problem: Bilat ears clogged x 3 weeks PAST MEDICAL HISTORY Diagnosis Date Ankle dislocation Arthritis of knee Colon polyp 2013 adenomatous Coronary artery disease SC in 1994 Diabetic neuropathy (HCC) DM (diabetes mellitus) (HCC) Femur fracture (HCC) GERD (gastroesophageal reflux disease) Heart attack (HCC) 1999 Hyperthyroidism 1993 I131 treatment... Mac. Hypothyroidism s/p I131 treatment Nasal fracture Overweight Pneumonia PAST SURGICAL HISTORY Procedure Laterality Date AMP F/TH 11/01 JT/PHALANX W/NEURECT W/DIR CLSR left index-partial COLONOSCOPY FLX DX W/COLLJ SPEC WHEN PFRMD 11/21/2013 Colonoscopy, repeat in 5 years ESOPHAGOGASTRODUODENOSCOPY TRANSORAL DIAGNOSTIC 11/21/2013 EGD ESOPHAGOGASTRODUODENOSCOPY TRANSORAL DIAGNOSTIC 12/12/13 EGD ESOPHAGOGASTRODUODENOSCOPY TRANSORAL DIAGNOSTIC 01/23/14 EGD HERNIA REPAIR HX right groin PAST SURGICAL HISTORY OF left knee procedure, as child PAST SURGICAL HISTORY OF right ankle- 7 surgeries per pt . PAST SURGICAL HISTORY OF tooth extraction PAST SURGICAL HISTORY OF heart stents x2 ALLERGIES Bee Sting, Benedryl [Diphenhydramine], and Penicillins MEDICATIONS lisinopril (ZESTRIL, PRINIVIL) 20 mg tablet Take 1 tablet by mouth once daily. empagliflozin (JARDIANCE) 10 mg tablet Take 1 tablet by mouth once daily. Take 1 tablet once daily in the morning aspirin, enteric coated (ASPIRIN, ENTERIC COATED) 81 mg EC tablet Take 1 tablet by mouth once daily. albuterol HFA (VENTOLIN HFA) 90 mcg/actuation inhaler Inhale 2 Puffs as instructed every 4 hours as needed. insulin lispro (ADMELOG SOLOSTAR U-100 INSULIN) 100 unit/mL inpn Inject 13 Units subcutaneously three times daily before meals. naproxen (NAPROSYN) 500 mg tablet Take 1 tablet by mouth twice daily with meals. insulin glargine (LANTUS U-100 INSULIN) 100 unit/mL injection Inject 82 Units subcutaneously daily before breakfast. flash glucose scanning reader (FREESTYLE CLAUDIA 14 DAY READER) misc 1 Device four times daily. flash glucose sensor (FREESTYLE CLAUDIA 14 DAY SENSOR) kit 1 Device four times daily. Insulin Syringe-Needle U-100 0.5 mL 31 gauge x 5/16 syrg Use once daily with Lantus blood sugar diagnostic (FREESTYLE LITE STRIPS) test strip Test blood sugar(s) 4 times daily. Dx: 250.02. InsulinDependent: Yes Alcohol Swabs (ALCOHOL PADS) padm Use to cleanse skin prior to giving insulin Oral Medication Containers misc Use as directed metFORMIN ER (GLUCOPHAGE XR) 500 mg 24 hr tablet Take 4 tablets by mouth once daily for 14 days. omeprazole (PRILOSEC) 20 mg capsule Take 1 capsule by mouth daily before breakfast for 14 days. 1/2 hr before meal. atorvastatin (LIPITOR) 40 mg tablet Take 1 tablet by mouth once daily for 14 days. For cholesterol levothyroxine (SYNTHROID) 175 mcg tablet Take 1 tablet by mouth once daily. Take on empty stomach. For Thyroid. gabapentin (NEURONTIN) 300 mg capsule Take 1 capsule by mouth daily at bedtime for 30 days. FAMILY HISTORY Problem Relation Age of Onset Emphysema Father Heart Father Breast Cancer Sister other (Bone Mets) Sister Diabetes Paternal Grandfather Social History Tobacco Use Smoking status: Never Smokeless tobacco: Former Quit date: 07/01/1978 Tobacco comments: Quit when he swallowed a wad of chew playing baseball! Vaping Use Vaping Use: Never used Substance Use Topics Alcohol use: No Drug use: No BP 127/80 Pulse 74 Temp 36.4 ?C (97.6 ?F) Resp 20 Wt 103 kg (227 lb) SpO2 98% BMI 28.18 kg/m? Review of Systems Constitutional: Negative for chills, fever and malaise/fatigue. HENT: Negative for congestion, ear discharge, ear pain, hearing loss, sinus pain, sore throat and tinnitus. Eyes: Negative for blurred vision, pain, discharge and redness. Respiratory: Negative for cough, hemoptysis, sputum production, shortness of breath, wheezing and stridor. Cardiovascular: Negative for chest pain. Gastrointestinal: Negative for abdominal pain, diarrhea, nausea and vomiting. Musculoskeletal: Negative for myalgias. Skin: Negative for itching and rash. Neurological: Negative for dizziness and headaches. Objective Physic (more content not included)... [facility] History of Present illness Narrative 08-18-2023 Jimmy Ramos APRN.[facility] - 08/18/2023 4:12 PM EDT Note Date & Type Note Facility 08-18-2023 History of Presen t illness Narrative Subjective HPI Nontoxic-appearing male presents urgent care complaint cerumen impaction. Duration of symptoms 3 weeks. Associated symptoms decreased hearing. History of cerumen impaction this feels similar. Has not used any OTC medications. No ear trauma loss of hearing. Overall feels well. Denies any fever body aches chills productive cough chest pain shortness of breath pleuritic pain hemoptysis nausea vomiting abdominal pain change in bowel or bladder habits. Past medical history prescription medication use and allergies reviewed. .Patient presents with: Ear Problem: Bilat ears clogged x 3 weeks PAST MEDICAL HISTORY Diagnosis Date Ankle dislocation Arthritis of knee Colon polyp 2013 adenomatous Coronary artery disease [place] in 1994 Diabetic neuropathy (HCC) DM (diabetes mellitus) (HCC) Femur fracture (HCC) GERD (gastroesophageal reflux disease) Heart attack (HCC) 1999 Hyperthyroidism 1993 I131 treatment... Mac. Hypothyroidism s/p I131 treatment Nasal fracture Overweight Pneumonia PAST SURGICAL HISTORY Procedure Laterality Date AMP /11/01 JT/PHALANX W/NEURECT W/DIR CLSR left index-partial COLONOSCOPY FLX DX W/COLLJ SPEC WHEN PFRMD 11/21/2013 Colonoscopy, repeat in 5 years ESOPHAGOGASTRODUODENOSCOPY TRANSORAL DIAGNOSTIC 11/21/2013 EGD ESOPHAGOGASTRODUODENOSCOPY TRANSORAL DIAGNOSTIC 12/12/13 EGD ESOPHAGOGASTRODUODENOSCOPY TRANSORAL DIAGNOSTIC 01/23/14 EGD HERNIA REPAIR HX right groin PAST SURGICAL HISTORY OF left knee procedure, as child PAST SURGICAL HISTORY OF right ankle- 7 surgeries per pt . PAST SURGICAL HISTORY OF tooth extraction PAST SURGICAL HISTORY OF heart stents x2 ALLERGIES Bee Sting, Benedryl [Diphenhydramine], and Penicillins MEDICATIONS lisinopril (ZESTRIL, PRINIVIL) 20 mg tablet Take 1 tablet by mouth once daily. empagliflozin (JARDIANCE) 10 mg tablet Take 1 tablet by mouth once daily. Take 1 tablet once daily in the morning aspirin, enteric coated (ASPIRIN, ENTERIC COATED) 81 mg EC tablet Take 1 tablet by mouth once daily. albuterol HFA (VENTOLIN HFA) 90 mcg/actuation inhaler Inhale 2 Puffs as instructed every 4 hours as needed. insulin lispro (ADMELOG SOLOSTAR U-100 INSULIN) 100 unit/mL inpn Inject 13 Units subcutaneously three times daily before meals. naproxen (NAPROSYN) 500 mg tablet Take 1 tablet by mouth twice daily with meals. insulin glargine (LANTUS U-100 INSULIN) 100 unit/mL injection Inject 82 Units subcutaneously daily before breakfast. flash glucose scanning reader (FREESTYLE CLAUDIA 14 DAY READER) misc 1 Device four times daily. flash glucose sensor (FREESTYLE CLAUDIA 14 DAY SENSOR) kit 1 Device four times daily. Insulin Syringe-Needle U-100 0.5 mL 31 gauge x 5/16 syrg Use once daily with Lantus blood sugar diagnostic (FREESTYLE LITE STRIPS) test strip Test blood sugar(s) 4 times daily. Dx: 250.02. InsulinDependent: Yes Alcohol Swabs (ALCOHOL PADS) padm Use to cleanse skin prior to giving insulin Oral Medication Containers misc Use as directed metFORMIN ER (GLUCOPHAGE XR) 500 mg 24 hr tablet Take 4 tablets by mouth once daily for 14 days. omeprazole (PRILOSEC) 20 mg capsule Take 1 capsule by mouth daily before breakfast for 14 days. 1/2 hr before meal. atorvastatin (LIPITOR) 40 mg tablet Take 1 tablet by mouth once daily for 14 days. For cholesterol levothyroxine (SYNTHROID) 175 mcg tablet Take 1 tablet by mouth once daily. Take on empty stomach. For Thyroid. gabapentin (NEURONTIN) 300 mg capsule Take 1 capsule by mouth daily at bedtime for 30 days. FAMILY HISTORY Problem Relation Age of Onset Emphysema Father Heart Father Breast Cancer Sister other (Bone Mets) Sister Diabetes Paternal Grandfather Social History Tobacco Use Smoking status: Never Smokeless tobacco: Former Quit date: 07/01/1978 Tobacco comments: Quit when he swallowed a wad of chew playing baseball! Vaping Use Vaping Use: Never used Substance Use Topics Alcohol use: No Drug use: No BP 127/80 Pulse 74 Temp 36.4 C (97.6 F) Resp 20 Wt 103 kg (227 lb) SpO2 98% BMI 28.18 kg/m Review of Systems Constitutional: Negative for chills, fever and malaise/fatigue. HENT: Negative for congestion, ear discharge, ear pain, hearing loss, sinus pain, sore throat and tinnitus. Eyes: Negative for blurred vision, pain, discharge and redness. Respiratory: Negative for cough, hemoptysis, sputum production, shortness of breath, wheezing and stridor. Cardiovascular: Negative for chest pain. Gastrointestinal: Negative for abdominal pain, diarrhea, nausea and vomiting. Musculoskeletal: Negative for myalgias. Skin: Negative for itching and rash. Neurological: Negative for dizziness and headaches. Objective Physical Exam Constitutional: General: He is not in acute distress. Appearance: He is not toxic-appearing. HENT: Head: Normocephalic. Right Ear: Ear canal and external ear normal. Decreased hearing noted. Left Ear: Ear canal and external ear normal. Decreased hearing noted. Ears: Comments: Unable to visualize TMs due to cerumen impaction. Cerumen appears to be impacted in the heart. Nose: Nose normal. Eyes: Pupils: Pupils are equal, round, and reactive to light. Cardiovascular: Rate and Rhythm: Normal rate. Pulmonary: Effort: Pulmonary effort is normal. No respiratory distress. Musculoskeletal: Cervical back: Normal range of motion. Skin: General: Skin is warm and dry. Neurological: General: No focal deficit present. Mental Status: He is alert. ASSESSMENT/PLAN: 1. Bilateral impacted cerumen - ICD9: 380.4, ICD10: H61.23 Patient diagnosis cerumen impaction. Will use Debrox for 1 week to soften his cerumen and return for ear lavage. Patient was educated on supportive therapies. Patient will follow up with primary care provider as needed. Patient was instructed to immediately proceed to emergency room for any new, worsening, or symptoms lasting longer than anticipated. The patient's clinical presentation is otherwise unremarkable at this time. Based on exam and clinical finding, the patient is stable for discharge. Plan of care was discussed with patient. Patient verbalizes understanding and agrees to plan of care. This note was generated using [employer] software. It may contain errors in wording, punctuation, or spelling. Jimmy Ramos APRN.TAMY documented in this encounter [facility] History of Past illness Narrative 10-13-2015 Note Date & Type Note Facility documented as of this encounter (statuses as of 08/18/2023) [facility] Evaluation note Note Date & Type Note Facility documented in this encounter [facility] Hospital Course * Haroon Erickson MD - 10/06/2019 3:22 PM EST Discharge Summary Jerald Yoder : 1960 ADMIT DATE: 10/05/2019 DISCHARGE DATE: 10/06/2019 PRIMARY CARE PHYSICIAN: No primary care provider on file. VISIT STATUS: Admission CODE STATUS: Full Code DISCHARGE DIAGNOSES: Nausea/abdominal pain resolved-no evidence of GOO on EGD DM with hyperglycemia Knee pain HTN CAD hyperlipidemia HOSPITAL COURSE: The patient is a 59 y.o. male presents from outside hospital with above complaints. He was found tohave a possible GOO on CT scan in the ED and transferred here for further treatment. The patient was also found to be hyperglycemic and initially put on an insulin drip in the ED. He is currently offthe drip. He denies cp, sob, cough, f/c, dizziness, emesis. He says the pain is diffuse, began earlier today and is associated with nausea. He also has some knee pain, right sided. He is a somewhat difficult historian. He was admitted and placed on IVF, made NPO and GI consult was requested. The patient had low potassium and low magnesium and these were repleted IV/PO. He underwent and EGD which showed no evidence of GOO. He returned to the floor, tolerated a diet, had no further symptoms, had BS 200 or below andwas discharged home. SIGNIFICANT DIAGNOSTIC STUDIES: EGD CONSULTANTS: GI RECOMMENDED NEXT STEPS: Follow up with PCP in 1 week. Follow up electrolytes as an outpatient. Further evaluation of the knee as an outpatient. Follow up BS. Physical Exam: General appearance: alert, cooperative and no distress Mental Status: oriented to person, place and time and normal affect Lungs: clear to auscultation bilaterally, normal effort Heart: regular rate and rhythm, no murmur Abdomen: soft, nontender, nondistended, bowel sounds present, no masses Extremities: no edema, redness, tenderness in the calves Skin: no gross lesions, rashes DISCHARGE MEDICATIONS: Jerald Yoder Home Medication Instructions IFEOMA:[id number] Printed on:10/06/19 1367 Medication Information aspirin 81 MG tablet Take 81 mg by mouth daily atorvastatin (LIPITOR) 40 MG tablet Take 40 mg by mouth daily canagliflozin (INVOKANA) 100 MG TABS tablet Take 100 mg by mouth every morning (before breakfast) insulin lispro (ADMELOG) 100 UNIT/ML injection vial Inject 13 Units into the skin 3 times daily (before meals) levothyroxine (SYNTHROID) 175 MCG tablet Take 175 mcg by mouth Daily lisinopril (PRINIVIL;ZESTRIL) 10 MG tablet Take 10 mg by mouth daily metFORMIN (GLUCOPHAGE-XR) 500 MG extended release tablet Take 2,000 mg by mouth daily (with breakfast) omeprazole (PRILOSEC) 20 MG delayed release capsule Take 20 mg by mouth daily DIET: DIET CARB CONTROL; ACTIVITY: No restriction. up with assist COMPLEXITY OF FOLLOW UP: [] Moderate Complexity: follow up within 7-14 calendar days (78540) [] Severe Complexity: follow up within 7 calendar days (85782) FOLLOW UP TESTING, PENDING RESULTS OR REFERRALS AT TRANSITIONAL CARE VISIT: [] Yes [] No PENDING STUDIES: No DISPOSITION: Home FACILITY/HOME CARE AGENCY NAME: Follow up with Dr Fernandez Schedule an appointment as soon as possible for a visit in 1 week INSTRUCTIONS TO MA/SW: Please call patient on day after discharge (must document patient contacted within 2 business days of discharge). FOLLOW UP QUESTIONS FOR MA/SW: 1. Did you get medications filled and taking them as instructed from discharge? 2. Are you following your discharge instructions from your hospital stay? 3. Please confirm patient is scheduled for a follow up appointment within the above time frame. DISCHARGE TIME: > 30 minutes SIGNED: HAROON ERICKSON MD 10/06/2019, 3:22 PM documented in this encounter Discharge Instructions * Discharge Instr - Activity* Haroon Erickson MD - 10/06/2019 2:49 PM EST As tolerated * Discharge Instr - Diet* aHroon Erickson MD - 10/06/2019 2:49 PM EST ? Good nutrition is important when healing from an illness, injury, or surgery. Follow any nutrition recommendations given to you during your hospital stay. ? If you were given an oral nutrition supplement while in the hospital, continue to take this supplement at home. You can take it with meals, in-between meals, and/or before bedtime. These supplements can be purchased at most local grocery stores, pharmacies, and chain [employer]-stores. ? If you have any questions about your diet or nutrition, call the hospital and ask for the dietitian. ? Carb control diet documented in this encounter History of Present Illness * Haroon Erickson MD - 10/07/2019 9:13 AM EST Patient was discharged yesterday but had issues securing a ride home therefore he was kept overnight. He now has a ride and will leave this AM. * Milagros Mckeon DTR - 10/07/2019 8:47 AM EST Nutrition rescreen completed. Chart reviewed. Patient to be monitored and followed by the diet civil design technician. * Vini Calloway, RN - 10/06/2019 1:[address] Erickson informed that patient has complaints of burning at IV site when potassium is infusing. 10mEq of potassium chloride already given via IV route at 1145 prior to patient leaving the floor forEGD procedure. Patient requesting to not have any additional IV potassium infusions. Per Dr. Erickson, order entered for 30mEq of po potassium chloride once. Dr. Erickson also discontinued remaining 30mEq of IV potassium. 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 Latest Code Status on File Code Status Date Activated Date Inactivated Comments Full Code 10/06/2019 11:12 AM Full Code 10/05/2019 5:27 PM 10/06/2019 11:12 AM Summary Purpose Family History No Family History Records FoundNo Family History Records Found Additional Source Comments (unrecognized sect ion and content) No Status Records FoundNo Status Records Found INFORMATION SOURCE (unrecogn ized section and content) DATE CREATED AUTHOR AUTHOR'S ORGANIZ ATION 08/20/2023 [facility] Source Comments (unrecognize d section and content) In the event this informatio n is protected by the Federal Confidentiality of Alcohol and Drug Abuse Patient Records regulations: The Federal rules restrict any use of the information to criminally investigate or prosecute any alcohol or drug abuse patient.[facility] Reason for Visit (unrecogniz ed section and content) FOR RECORDS PERTAINING TO PATIENTS WHO ARE OR HAVE BEEN ENROLLED IN A CHEMICAL DEPENDENCY/SUBSTANCEABUSE PROGRAM, SOME INFORMATION MAY BE OMITTED. This clinical summary was aggregated from multiple sources. Caution should be exercised in using it in the provision of clinical care. This summary normalizes information from multiple sources, and as a consequence, information in this document may materially change the coding, format and clinical context of patient data. In addition, data may be omitted in some cases. CLINICAL DECISIONS SHOULD BE BASED ON THE PRIMARY CLINICAL RECORDS. [facility]. provides no warranty or guarantee of the accuracy or completeness of information in this document.
--- NOTE | 2023-12-08 16:13 | EDS_ITS ---
HPI History of Present Illness Chief Complaint: Dizziness Narrative Narrative: 63-year-old male presenting with dizziness. He describes it as vertiginous. He states he was fishing and had had breakfast with eggs and sausage but then ate some donuts and thought maybe his blood sugar was up. He checked it it was 163. Denies chest pain, palpitations, shortness of breath. Otherwise healthy prior to the symptoms. No fevers or chills. Patient states the dizziness has improved since it started. Denies headache, slurred speech, confusion. 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 Restless legs Sleep apnea Home Medications metformin 500 mg tablet,extended release 24 hr 500 mg PO BID diabetes 05/02/19 [History Last Taken 03/18/22] fluconazole 200 mg tablet (Diflucan) 200 mg PO DAILY antibiotic 03/19/22 [History Last Taken 03/18/22] glipizide 5 mg tablet 5 mg PO BID diabetes 03/19/22 [History Last Taken 03/18/22] insulin glargine 100 unit/mL (3 mL) subcutaneous pen (Lantus Solostar U-100 Insulin) 10 unit subcut BID diabetes 03/19/22 [History Last Taken 03/18/22] ondansetron 4 mg disintegrating tablet 4 mg PO Q8H PRN nausea and vomiting #10 tabs 04/26/22 [Rx Last Taken Unknown] dicyclomine 20 mg tablet 20 mg PO TID PRN abdominal cramping #20 tabs 08/07/22 [Rx Last Taken Unknown] diphenoxylate-atropine 2.5 mg-0.025 mg tablet (Lomotil) 1 tab PO 4X/DAY PRN PRN diarrhea 5 days #20 tabs 10/30/22 [Rx Last Taken Unknown] cyclobenzaprine 10 mg tablet 10 mg PO TID PRN Muscle Spasm #20 TABLETS 08/26/23 [Rx Last Taken Unknown] hydrocortisone 1 % topical cream 1 applic topical TID PRN skin irritation #28.4 grams 08/26/23 [Rx Last Taken Unknown] ibuprofen 600 mg tablet 600 mg PO Q8H PRN PRN pain #20 TABLETS 08/26/23 [Rx Last Taken Unknown] ciprofloxacin HCl 500 mg tablet (Cipro) 500 mg PO BID #20 tabs 09/29/23 [Rx Last Taken Unknown] insulin glargine 100 unit/mL subcutaneous solution (Lantus U-100 Insulin) 1 unit subcut QPM 09/29/23 [History Last Taken Unknown] levothyroxine 100 mcg tablet 100 mcg PO DAILY 09/29/23 [History Last Taken Unknown] metronidazole 500 mg tablet 500 mg PO BID 10 days #20 tabs 09/29/23 [Rx Last Taken Unknown] magnesium citrate (Citrate of Magnesia oral) 300 ml PO DAILY PRN constipation #296 mL 12/08/23 [Rx Last Taken Unknown] meclizine 25 mg tablet 25 mg PO TID #30 tabs 12/08/23 [Rx Last Taken Unknown] Allergy/AdvReac Type Severity Reaction Status Date / Time diphenhydramine HCl Allergy Rash Verified 12/08/23 12:42 [From Benadryl] Penicillins Allergy Rash Verified 12/08/23 12:42 venom-honey bee Allergy Swelling Verified 12/08/23 12:42 [bee venom (honey bee)] Surgical History History of coronary artery stent placement Hx of inguinal herniorrhaphy Hx of left knee surgery Social History household members: none Smoking Status: Never smoker substance use type: does not use ROS ROS ED ROS Narrative Dizziness Constitutional Constitutional ED: Denies chills, fever(s) or sweats Eyes Eyes: Denies blurry vision or change in vision ENT ENT ED: Denies ear pain or sore throat Cardiovascular Cardiovascular: Denies chest pain, palpitations or racing heartbeat Respiratory/Chest Respiratory/Chest: Denies cough, dyspnea or sputum Gastrointestinal Gastrointestinal: Denies abdominal pain, constipation, diarrhea, nausea or vomiting Genitourinary Genitourinary ED: Denies dysuria, hematuria or urinary frequency Musculoskeletal Musculoskeletal: Denies arthralgias, myalgias or neck pain Integumentary Denies abscess, Abrasions or rash Neurologic Neurologic: Denies headache(s), paresthesias or weakness Psychiatric Psychiatric: Denies anxiety, depression, suicidal ideation or suicidal thoughts Endocrine Endocrinology: Denies polydipsia or polyuria EXAM Physical Exam Const Vital Signs: 12/08/23 12:40 12/08/23 14:42 Temperature 99.7 F H Temperature Source Temporal Pulse Rate 75 Respiratory Rate 16 18 Blood Pressure 115/82 H Blood Pressure Mean 93 Pulse Ox 95 Oxygen Delivery Method Room Air Room Air Positive well nourished General Appearance ED: NAD; Negative for pallor HEENT Reports moist mucous membranes HEENT Narrative: Positive [place]-Hallpike. Nystagmus noted Eyes PERRL and EOMs intact bilaterally Chest Wall inspection of chest normal Resp normal respiratory effort and clear to auscultation bilaterally Auscultation: Negative for rales, rhonchi or wheezes Cardio regular rate Neuro oriented x3 and CN's II-XII intact bilaterally Neuro Narrative: No focal neurologic deficits or lateralizing signs or symptoms. Sensorium / Orientation: alert Motor Exam: strength 5/5 throughout Psych mental status grossly normal Skin no rashes or lesions noted General Skin Exam: Negative for jaundice or pallor MDM MDM MDM Narrative Medical decision making narrative: Patient presenting with dizziness it is vertiginous in nature. Is reproducible on examination. I suspect this is benign positional vertigo. He is given m eclizine and Phenergan and his dizziness did improve. He is walked to the bathroom 3 times now. At discharge she states he is too dizzy to walk but then again got up and walk to the restroom. He now states that he is constipated. Again he got up and walked to the bathroom and could not have a bowel movement twice and then came back to the room. He stated that his dizziness was worse but is now better. I ordered lab work, EKG to assess him and his dizziness is now gone again. We discussed giving him something for his constipation as this just started we will give him magnesium citrate. Since his dizziness is better I will discharge him home on meclizine. Return precautions discussed. Impression: 1. Benign positional vertigo 2. Constipation Discharge Plan Triage Chief Complaint: Dizziness ED Provider: Keenan Wu Dx/Rx/DC Orders Instructions: ED BPV Vertigo, ED Constipation (Adult) Prescriptions: New meclizine 25 mg tablet 25 mg PO TID Qty: 30 0RF magnesium citrate [Citrate of Magnesia] Solution 300 ml PO DAILY PRN (Reason: constipation) Qty: 296 0RF Rx Instructions: Drink one half bottle if no bowel movement within 4 hours drink the second half of the bottle No Action metformin 500 MG tablet 500 mg PO BID Patient Comments: diabetes insulin glargine [Lantus Solostar U-100 Insulin] 100 unit/mL (3 mL) Insulin Pen 10 unit SUBCUT BID fluconazole [Diflucan] 200 mg tablet 200 mg PO DAILY glipizide 5 mg tablet 5 mg PO BID Rx Instructions: Hold if glucose less than 130 mg/dl ondansetron 4 mg tablet,disintegrating 4 mg PO Q8H PRN (Reason: nausea and vomiting) Qty: 10 0RF dicyclomine 20 mg tablet 20 mg PO TID PRN (Reason: abdominal cramping) Qty: 20 0RF diphenoxylate-atropine [Lomotil] 2.5-0.025 mg tablet 1 tab PO 4X/DAY PRN PRN (Reason: diarrhea) 5 Days Qty: 20 0RF ibuprofen 600 mg tablet 600 mg PO Q8H PRN PRN (Reason: pain) Qty: 20 0RF cyclobenzaprine 10 mg tablet 10 mg PO TID PRN (Reason: Muscle Spasm) Qty: 20 0RF hydrocortisone 1 % cream 1 applic topical TID PRN (Reason: skin irritation) Qty: 28.4 0RF levothyroxine 100 mcg tablet 100 mcg PO DAILY Patient Comments: Take 1 tab by mouth once daily on an empty stomach insulin glargine [Lantus U-100 Insulin] 100 unit/mL solution 1 unit subcut QPM ciprofloxacin HCl [Cipro] 500 mg tablet 500 mg PO BID Qty: 20 0RF metronidazole 500 mg tablet 500 mg PO BID 10 Days Qty: 20 0RF Primary Care Provider: Linden Chavez Referrals: Linden Chavez DO [Primary Care Provider] - Disposition Disposition: Home, Self Care Discharge Date/Time: 12/08/23 15:33
== END 2023-12-08 15:33 | disposition home or self-care (01) ==
PROVIDERS: Emergency Provider Student in an Organized Health Care Education/Training Program; PCP Family Medicine; Visit Provider Student in an Organized Health Care Education/Training Program
DX: H81.10 Benign paroxysmal vertigo, unspecified ear (principal); E11.9 Type 2 diabetes mellitus without complications; K59.00 Constipation, unspecified; G47.30 Sleep apnea, unspecified; I25.2 Old myocardial infarction; Z95.5 Presence of coronary angioplasty implant and graft
CPT/HCPCS: 96372; 99283

== ENCOUNTER 2023-12-18 15:33 | Emergency (ER) | payer MEDICAID, SELFPAY ==
[2023-12-18 15:34] VITALS: BP 109/61; PULSE 79; RESP 18; TEMP 36.8; O2SAT 97
[2023-12-18 16:22] VITALS: BMI 26.7
--- NOTE | 2023-12-18 16:34 | CT_ITS ---
STUDY: CT LUMBAR SPINE WITHOUT CONTRAST REASON FOR EXAM: Male, 63 years old. back pain RADIATION DOSAGE (If Supplied By Facility): CTDIvol = ( 41.20 ) mGy, DLP = ( 1289.86 ) mGycm TECHNIQUE: The patient was scanned in a multi detector CT scanner. High resolution transaxial imaging was performed. Images were obtained from T12 to S1. Sagittal and coronal images were reconstructed. Individualized dose optimization techniques were used for this CT. COMPARISON: None FINDINGS: Normal lumbar lordosis. Mild levoscoliosis centered at L4/L5. Normal vertebrae of the lumbar spine. L1-2: Normal endplates. Normal disc height and morphology. Normal bilateral facet joints. Normal central canal and bilateral lateral recesses. Normal bilateral intervertebral neural foramina. L2-3: Mild bilateral facet hypertrophy and moderate ligament flavum hypertrophy. 2 mm retrolisthesis of L2 on L3 with a mild bilobed disc protrusion produces moderate spinal stenosis and mild bilateral neural foraminal stenosis. L3-4: Mild bilateral facet hypertrophy and moderate ligament flavum hypertrophy. 2 mm retrolisthesis of L3 on L4 with a moderate bilobed disc protrusion produces severe spinal stenosis and moderate bilateral neural foraminal stenosis. L4-5: Mild bilateral facet hypertrophy and severe ligament flavum hypertrophy. 5 mm retrolisthesis of L4 on L5 with a moderate broad disc osteophyte complex with vacuum disc formation produces severe spinal stenosis and moderate bilateral neural foraminal stenosis. L5-S1: Mild bilateral facet hypertrophy and ligament flavum hypertrophy. 5 mm retrolisthesis of L5 on S1 with a moderate broad disc osteophyte complex with vacuum disc formation produces severe spinal stenosis and severe bilateral neural foraminal stenosis. Normal visualized paraspinous soft tissue structures. CT/Spine Lumbar without Contrast IMPRESSION: Mild levoscoliosis with degenerative disc disease as described above. Electronically Signed: Dakotah Rivera MD at 17:29 EST ,
--- NOTE | 2023-12-18 16:39 | EDS_ITS ---
HPI <ARCHIE Hopkins - Last Filed: 12/18/23 17:53> HPI - Fall History of Present Illness Chief Complaint: Fall Narrative Narrative: 63-year-old male was in the hospital visiting his brother who is a patient. He states he had an episode of diarrhea and did not make it to the bathroom in time and so his pants. He took a shower and the patient bathroom and fell while getting out landing on his low back and tailbone. No head injury or LOC. He was able to get up and ambulate. 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 Restless legs Sleep apnea Home Medications metformin 500 mg tablet,extended release 24 hr 500 mg PO BID diabetes 05/02/19 [History Last Taken 03/18/22] fluconazole 200 mg tablet (Diflucan) 200 mg PO DAILY antibiotic 03/19/22 [History Last Taken 03/18/22] glipizide 5 mg tablet 5 mg PO BID diabetes 03/19/22 [History Last Taken 03/18] insulin glargine 100 unit/mL (3 mL) subcutaneous pen (Lantus Solostar U-100 Insulin) 10 unit subcut BID diabetes 03/19/22 [History Last Taken 03/18/22] ondansetron 4 mg disintegrating tablet 4 mg PO Q8H PRN nausea and vomiting #10 tabs 04/26/22 [Rx Last Taken Unknown] dicyclomine 20 mg tablet 20 mg PO TID PRN abdominal cramping #20 tabs 08/07/22 [Rx Last Taken Unknown] diphenoxylate-atropine 2.5 mg-0.025 mg tablet (Lomotil) 1 tab PO 4X/DAY PRN PRN diarrhea 5 days #20 tabs 10/30/22 [Rx Last Taken Unknown] cyclobenzaprine 10 mg tablet 10 mg PO TID PRN Muscle Spasm #20 TABLETS 08/26/23 [Rx Last Taken Unknown] hydrocortisone 1 % topical cream 1 applic topical TID PRN skin irritation #28.4 grams 08/26/23 [Rx Last Taken Unknown] ibuprofen 600 mg tablet 600 mg PO Q8H PRN PRN pain #20 TABLETS 08/26/23 [Rx Last Taken Unknown] ciprofloxacin HCl 500 mg tablet (Cipro) 500 mg PO BID #20 tabs 09/29/23 [Rx Last Taken Unknown] insulin glargine 100 unit/mL subcutaneous solution (Lantus U-100 Insulin) 1 unit subcut QPM 09/29/23 [History Last Taken Unknown] levothyroxine 100 mcg tablet 100 mcg PO DAILY 09/29/23 [History Last Taken Unknown] metronidazole 500 mg tablet 500 mg PO BID 10 days #20 tabs 09/29/23 [Rx Last Taken Unknown] magnesium citrate (Citrate of Magnesia oral) 300 ml PO DAILY PRN constipation #296 mL 12/08/23 [Rx Last Taken Unknown] meclizine 25 mg tablet 25 mg PO TID #30 tabs 12/08/23 [Rx Last Taken Unknown] Allergy/AdvReac Type Severity Reaction Status Date / Time diphenhydramine HCl Allergy Rash Verified 12/18/23 15:34 [From Benadryl] Penicillins Allergy Rash Verified 12/18/23 15:34 venom-honey bee Allergy Swelling Verified 12/18/23 15:34 [bee venom (honey bee)] Surgical History History of coronary artery stent placement Hx of inguinal herniorrhaphy Hx of left knee surgery Social History household members: none Smoking Status: Never smoker substance use type: does not use ROS <ARCHIE Hopkins - Last Filed: 12/18/23 17:53> ROS ED ROS Narrative Neuro: Negative for motor/sensory dysfunction. Skin: Negative for wound. Musc: Negative for joint pain, swelling. EXAM <ARCHIE Hopkins - Last Filed: 12/18/23 17:53> Physical Exam Narrative Exam Narrative: CONST: Patient sitting in no acute distress. EYES: Normal inspection. NECK: Normal inspection. RESP: No respiratory distress, CTAB. CVS: Regular rate and rhythm, no murmur, no gallop. Back: Normal inspection, no cervical or thoracic tenderness, lower lumbar and sacral midline tenderness without step-offs. No bruising. SKIN: Color normal, no rash, warm, dry, intact. EXTREMITIES: Normal appearance, full ROM lower extremities, no tenderness, 5/5 strength in bilateral hip flexion and DF/PF, normal sensation and 2+ DP pulses. NEURO: Oriented x4. PSYCH: Normal affect. Const Vital Signs: 12/18/23 15:34 12/18/23 16:23 12/18/23 17:53 Temperature 98.2 F 98.2 F Temperature Source Temporal Pulse Rate 79 77 Respiratory Rate 18 18 Respiratory Effort Normal Non-Labored Respiratory Depth Normal Respiratory Pattern Normal Blood Pressure 109/61 109/61 Blood Pressure Mean 77 77 Pulse Ox 97 97 Oxygen Delivery Method Room Air Room Air <Dr. Buster Pereyra DO - Last Filed: 12/18/23 22:18> Physical Exam Const Vital Signs: 12/18/23 15:34 12/18/23 16:23 12/18/23 17:53 Temperature 98.2 F 98.2 F Temperature Source Temporal Pulse Rate 79 77 Respiratory Rate 18 18 Respiratory Effort Normal Non-Labored Respiratory Depth Normal Respiratory Pattern Normal Blood Pressure 109/61 109/61 Blood Pressure Mean 77 77 Pulse Ox 97 97 Oxygen Delivery Method Room Air Room Air [facility] <ARCHIE Hopkins - Last Filed: 12/18/23 17:53> [facility] Narrative Medical decision making narrative: Differential: Low back contusion, spinal fracture Patient had mechanical fall onto his low back and buttocks. He has been ambulatory since the fall. He had no head injury. He has no external signs of injury. He has lower lumbar tenderness without step-offs. He is moving both lower extremities with MSPs and reflexes intact. CT lumbar spine shows no acute findings. He feels improved after [place] and is comfortable taking [id number] analgesia at home. He was discharged in stable condition. Radiography Diagnostic Testing: Clinical Impression(s) from Imaging Studies Lumbar Spine CT 12/18/23 16:34 IMPRESSION: Mild levoscoliosis with degenerative disc disease as described above. Electronically Signed: Dakotah Rivera MD at 17:29 EST , <Dr. Buster Pereyra, DO - Last Filed: 12/18/23 22:18> MDM Radiography Diagnostic Testing: Clinical Impression(s) from Imaging Studies Lumbar Spine CT 12/18/23 16:34 IMPRESSION: Mild levoscoliosis with degenerative disc disease as described above. Electronically Signed: Dakotah Rivera MD at 17:29 EST , Treatment and Re-Evaluation Narrative: ED attending note: I evaluated the patient in conjunction with the SEB. I agree with his/her statements and above findings. I have personally performed a face to face assessment of the patient and have reviewed the SEB Note. I performed a substantive portion of the visit including all aspects of the following. I personally saw the patient performed chart review, physical exam, reviewed labs, imaging (if obtained), and formulated a treatment and management plan. This note was generated with [employer] dictation software. It may contain incorrect words, spelling, and punctuation that were not noted in review of the chart prior to signing. Discharge Plan Triage Chief Complaint: Fall ED Midlevel Provider: Cinthia Wilson ED Provider: Buster Pereyra Dx/Rx/DC Orders Clinical Impression: Contusion of lower back Instructions: ED Back Contusion Prescriptions: No Action metformin 500 MG tablet 500 mg PO BID Patient Comments: diabetes insulin glargine [Lantus Solostar U-100 Insulin] 100 unit/mL (3 mL) Insulin Pen 10 unit SUBCUT BID fluconazole [Diflucan] 200 mg tablet 200 mg PO DAILY glipizide 5 mg tablet 5 mg PO BID Rx Instructions: Hold if glucose less than 130 mg/dl ondansetron 4 mg tablet,disintegrating 4 mg PO Q8H PRN (Reason: nausea and vomiting) Qty: 10 0RF dicyclomine 20 mg tablet 20 mg PO TID PRN (Reason: abdominal cramping) Qty: 20 0RF diphenoxylate-atropine [Lomotil] 2.5-0.025 mg tablet 1 tab PO 4X/DAY PRN PRN (Reason: diarrhea) 5 Days Qty: 20 0RF meclizine 25 mg tablet 25 mg PO TID Qty: 30 0RF magnesium citrate [Citrate of Magnesia] Solution 300 ml PO DAILY PRN (Reason: constipation) Qty: 296 0RF Rx Instructions: Drink one half bottle if no bowel movement within 4 hours drink the second half of the bottle ibuprofen 600 mg tablet 600 mg PO Q8H PRN PRN (Reason: pain) Qty: 20 0RF cyclobenzaprine 10 mg tablet 10 mg PO TID PRN (Reason: Muscle Spasm) Qty: 20 0RF hydrocortisone 1 % cream 1 applic topical TID PRN (Reason: skin irritation) Qty: 28.4 0RF levothyroxine 100 mcg tablet 100 mcg PO DAILY Patient Comments: Take 1 tab by mouth once daily on an empty stomach insulin glargine [Lantus U-100 Insulin] 100 unit/mL solution 1 unit subcut QPM ciprofloxacin HCl [Cipro] 500 mg tablet 500 mg PO BID Qty: 20 0RF metronidazole 500 mg tablet 500 mg PO BID 10 Days Qty: 20 0RF Primary Care Provider: Linden Chavez Referrals: Linden Chavez DO [Primary Care Provider] - Activity Restrictions/Additional Instructions: Your CT showed no broken bones. Use ice and take [id number] Tylenol and Motrin as needed for pain. Disposition Disposition: Home, Self Care Discharge Date/Time: 12/18/23 17:55
--- OUTSIDE RECORDS SUMMARY | 2023-12-18 16:43 | XMS RPT_ITS | CCD ---
Author Name Unknown Address [address] [place] [address] Organization [facility] Care Team Providers Care Roller Inspector Name Role Phone Unavailable Primary Care Provider Unavailabl e Allergies Allergy Classification Reported Allergen(s) Allergy Type Date of Onset Reaction(s) Facility (1 source) bee venom Propensity to adverse reactions to drug 9 [place], [place] (2 sources) diphenhydrAMINE; Translations: [DIPHENHYDRAMINE] Drug Allergy 1 [place], [place] (2 sources) Penicillins; Translations: [PENICILLINS] Propensity to adverse reactions to drug 1 [place], [place] (1 source) diphenhydrAMINE Drug Allergy 1 Swelling [facility] Work Phone: (1 source) Penicillins Drug Allergy 1 Rash [facility] Work Phone: (2 sources) Bee Sting; Translations: [BEE STING] Allergy to substance 1 Swelling [facility] Work Phone: Medications Current Medications [...] Drug Class(es) Dates Sig (Normalized) Sig (Original) [id number] 200 actuat albuterol 0.09 mg/actuat metered dose [...] Coronary arteriosclerosis; Translations: [Atherosclerotic heart disease of [place] coronary artery without angina pectoris] Onset: 06-22-2011 [...] 15:51-0400 Body temperature 97.59 [degF] Jimmy Rachel CLAIMS ASSOCIATE.LINING STRAP CLOSER Work Phone: [facility] 08-18-2023 15:51-0400 Body weight 102.97 kg Jimmy Ramos CLAIMS ASSOCIATE.LINING STRAP CLOSER Work Phone: [facility] 08-18-2023 15:51-0400 Diastolic blood pressure 80 mm[Hg] Jimmy Ramos CLAIMS ASSOCIATE.LINING STRAP CLOSER Work Phone: [facility] 08-18-2023 15:51-0400 Heart rate 74 /min Jimmy Ramos CLAIMS ASSOCIATE.LINING STRAP CLOSER Work Phone: [facility] 08-18-2023 15:51-0400 Respiratory rate 20 /min Jimmy Ramos CLAIMS ASSOCIATE.LINING STRAP CLOSER Work Phone: [facility] 08-18-2023 15:51-0400 SaO2% (BldA) [Mass fraction] 98 % Jimmy Ramos CLAIMS ASSOCIATE.LINING STRAP CLOSER Work Phone: [facility] 08-18-2023 15:51-0400 Systolic blood pressure 127 mm[Hg] Jimmy Ramos CLAIMS ASSOCIATE.LINING STRAP CLOSER Work Phone: [facility] 10-07-2019 07:48-0500 Body Temperature 96.1 [degF] [facility], [place] 10-07-2019 07:48-0500 BP Diastolic 90 mm[Hg] [facility] , [place] 10-07-2019 07:48-0500 BP Systolic 139 mm[Hg] [facility] , [place] 10-07-2019 07:48-0500 Pulse (Heart Rate) 72 /min Aden Martinez [facility], [place] 10-07-2019 07:48-0500 Pulse Oximetry 95 % Aden Martinez [facility] , [place] 10-07-2019 07:48-0500 Respiratory Rate 16 /min Aden Martinez [facility], [place] 10-07-2019 06:06-0500 BMI (Body Mass Index) 26.7 kg/m2 Aden Martinez [facility], [place] 10-07-2019 06:06-0500 Body weight 102.15 kg [facility] , [place] 10-06-2019 12:03-0500 Height 195.6 cm Aden Valentin [facility] , [place] Encounters Encounter Date Encounter Type Care Provider Facility Start: 08-18-2023 End: 08-18-2023 ambulatory Facility:[facility] Start: 08-18-2023 End: 08-18-2023 Office outpatient visit 15 minutes Jimmy Ramos APRN.CNP Work Phone: [facility] Procedures Date Procedure Procedure Detail [...] Work Phone: Start: 11-21-2013 Colonoscopy Jimmy justice CLAIMS ASSOCIATE.LINING STRAP CLOSER Work Phone: Start: 06-22-2011 History of placement of stent for coronary artery disease S/P coronary artery stent placement Jimmy Ramos CLAIMS ASSOCIATE.LINING STRAP CLOSER Work Phone: Plan of Treatment Date Care Activity Detail Author Start: 05-03-2026 Urine microalbumin profile DTaP,Tdap,Td Vaccine (2 - Td or Tdap) [facility] Start: 07-01-2023 Covid-19 Vaccine ( season) Covid-19 Vaccine ( season) [facility] Start: 07-01-2023 Influenza vaccination [facility] Start: 10-31-2022 Depression Assessment Depression Assessment [facility] Start: 05-13-2021 Hepatitis C antibody, confirmatory test Dilated Retinal Exam [facility] Start: 11-08-2020 Annual PCP Team Chronic Disease Visit Annual PCP Team Chronic Disease Visit [facility] Start: 10-06-2020 Creatinine monitoring Creatinine monitoring [facility] , [place] Start: 10-06-2020 Potassium monitoring Potassium monitoring [facility], [place] Start: 2020 Hepatitis B Vaccine (1 of 3 - Risk 3-dose series) Hepatitis B Vaccine (1 of 3 - Risk 3-dose series) [facility] Start: 2020 RSV Vaccine (1 - 1-dose 60+ series) RSV Vaccine (1 - 1-dose 60+ series) [facility] Start: 02-17-2020 3 comp foot exam completed Diabetic Foot Exam [facility] Start: 07-14-2019 Hepatitis B screening Urine Albumin:Creatinine Ratio [facility] Start: 07-14-2019 Hepatitis B surface antibody level LDL Cholesterol [facility] Start: 07-01-2019 Influenza vaccination Flu vaccine (#1) [place] Start: 06-06-2019 Hemoglobin A1c/Hemoglobin.total in Blood HbA1C [facility] Start: 11-21-2018 Colonoscopy Colonoscopy [facility] Start: 11-21-2018 Colorectal Cancer Screening Colorectal Cancer Screening [facility] Start: 2015 Prostate Cancer Screening Discussion Prostate Cancer Screening Discussion [facility] Start: 06-08-2014 Fecal Occult Blood Fecal Occult Blood [facility] Start: 07-22-2012 Pneumococcal vaccination Pneumococcal Vaccine (2 - PCV) [facility] Start: 2010 Colon cancer screen colonoscopy Colon cancer screen colonoscopy [place], [place] Start: 2010 Shingles Vaccine (1 of 2) Shingles Vaccine (1 of 2) [place] Start: 2010 Shingrix Vaccine (1 of 2) Shingrix Vaccine (1 of 2) [facility] Start: 2005 Cologuard (FIT-DNA) Cologuard (FIT-DNA) [facility] Start: [address] Colonography [facility] Start: 2005 Sigmoidoscopy Sigmoidoscopy [facility] Start: 2000 Diabetes screen Diabetes screen [place], [place] Start: 1978 BP Controlled (<130/80) BP Controlled (<130/80) [facility] in Start: 1978 HIV Screening HIV Screening [facility] Start: 1975 HIV screen HIV screen [place], [place] Start: 1971 DTaP/Tdap/Td vaccine (1 - Tdap) DTaP/Tdap/Td vaccine (1 - Tdap) [place] Start: 1970 Lipid screen Lipid screen [place], [place] Start: 1960 Hepatitis C screen Hepatitis C screen [place], [place] Initiate Oxygen Ther apy Protocol Initiate Oxygen Therapy Protocol Respiratory Care Routine Daily until discontinued starting 10/05/2019 [place], [place] Immunizations Immunization Date Immunization Notes Care Provider Fa janetmarcus 11-08-2019 influenza virus vacc ine, unspecified formulation Jimmy Ramos CLAIMS ASSOCIATE.LINING STRAP CLOSER Work Phone: [facility] 08-08-2012 tetanus and diphther ia toxoids, adsorbed, preservative free, for adult use (2 Lf of tetanus toxoid and 2 Lf of diphtheria toxoid) Jimmy Ramos CLAIMS ASSOCIATE.LINING STRAP CLOSER Work Phone: [facility] 07-22-2011 pneumococcal polysaccharide vaccine, 23 valent Jimmy Ramos CLAIMS ASSOCIATE.LINING STRAP CLOSER Work Phone: [facility] Payers Date Payer Category Payer Medicaid [facility] MEDIC AID [facility] MEDICAID [id number] 2022-Present [phone] [address] [place] [address] Medicaid [id number] 2022 Medicaid [id number] Social History Date Type Detail Facility Start: 10-06-2019 End: 08-18-2023 Tobacco smoking status NHIS Never smoker [facility] Start: 10-06-2019 Alcohol intake Ex-drinker (finding) [place], [place] Start: 10-06-2019 Alcohol Comment Last drinking 1992, Hx EtOH 10 years, never attended AA program [place], [place] Start: 1960 Sex Assigned At Not on file M [place], [place] Start: 08-18-2023 Tobacco use and exposure Forme r smokeless tobacco user [facility] End: 07-01-1978 History of tobacco use User of smokeless tobacco [facility] Start: 08-18-2023 Alcohol intake Current non-dr die sinker of alcohol (finding) [facility] Start: 10-05-2020 End: 08-18-2023 History of Social function [facility] Start: 10-05-2020 End: 08-18-2023 Tobacco use panel [facility] Adult Depression Screening Assessment 5 [facility] Start: 08-18-2023 Tobacco Comment Quit when he s wallowed a wad of chew playing baseball! [facility] Medical Equipment Procedure Code Equipment Code Equipment Origin al Text Equipment Identifier Dates Start: 09-16-2017 Progress note 08-18-2023 Note Date & Type Note Facility 08-18-2023 Note HNO ID: [id number] Author: Jimmy Ramos APRN.LINING STRAP CLOSER Service: ? Author Type: Nurse Practitioner Type: [...] Colon polyp 2013 adenomatous Coronary artery disease [place] in 1994 Diabetic neuropathy (HCC) DM (diabetes [...] before breakfast. flash glucose scanning reader (FREESTYLE CALUDIA 14 DAY READER) misc 1 Device four [...] headaches. Objective Physic (more content not included)... [facility] History of Present illness Narrative 08-18-2023 Jimmy Ramos APRN.[facility] - 08/18/2023 4:12 PM EDT Note Date [...] Colon polyp 2013 adenomatous Coronary artery disease [place] in 1994 Diabetic neuropathy (HCC) DM (diabetes [...] of care. This note was generated using [employer] software. It may contain errors in wording, punctuation, or spelling. Jimmy Ramos APRN.TAMY documented in this encounter [facility] History of Past illness Narrative 10-13-2015 Note Date & Type Note Facility documented as of this encounter (statuses as of 08/18/2023) [facility] Evaluation note Note Date & Type Note Facility documented in this encounter [facility] Hospital Course * Haroon Erickson [...] DISCHARGE MEDICATIONS: Jerald Yoder Home Medication Instructions IFEOMA:[id number] Printed on:10/06/19 8907 Medication Information aspirin 81 MG tablet Take [...] Complexity: follow up within 7-14 calendar days (31204) [] Severe Complexity: follow up within 7 calendar days (28772) FOLLOW UP TESTING, PENDING RESULTS OR REFERRALS [...] As tolerated * Discharge Instr - Diet* Haroon Erickson MD - 10/06/2019 2:49 PM [...] most local grocery stores, pharmacies, and chain [facility]-stores. ? If you have any questions about [...] be monitored and followed by the diet laboratory development technician. * Vini Calloway, RN - 10/06/2019 [...] FoundDocuments on File Type Date Recorded Patient Echocardiologist Expl anation Advance Directives and Living Will Power of Wood Chopper Latest Code Status on File Code Status [...] DATE CREATED AUTHOR AUTHOR'S ORGANIZ ATION 08/20/2023 [facility] Source Comments (unrecognize d section and content) In the event this informatio n is protected by the Federal Confidentiality of Alcohol and Drug Abuse Patient Records regulations: The Federal rules restrict any use of the information to criminally investigate or prosecute any alcohol or drug abuse patient.[facility] Reason for Visit (unrecogniz ed section [...] BE BASED ON THE PRIMARY CLINICAL RECORDS. [employer] [facility]. provides no warranty or guarantee of the accuracy or completeness of information in this document.
[2023-12-18] MEDS: Ondansetron ODT 4 MG Tablet PO (16:44)
[2023-12-18] MEDS: HYDROcodone Bitartrate/Apap 5/325 Tablet PO (16:44)
[2023-12-18 17:53] VITALS: BP 109/61; PULSE 77; RESP 18; TEMP 36.8; O2SAT 97
== END 2023-12-18 17:55 | disposition home or self-care (01) ==
PROVIDERS: Emergency Provider Emergency Medicine; PCP Family Medicine; Visit Provider Emergency Medicine
DX: S20.229A Contusion of unspecified back wall of thorax, initial encounter (principal); E10.9 Type 1 diabetes mellitus without complications; Z79.899 Other long term (current) drug therapy; Z79.84 Long term (current) use of oral hypoglycemic drugs; W19.XXXA Unspecified fall, initial encounter
CPT/HCPCS: 72131; 99283

== ENCOUNTER 2023-12-25 08:43 | Emergency (ER) | payer MEDICAID, SELFPAY ==
[2023-12-25 08:45] VITALS: BP 153/94; PULSE 73; RESP 15; TEMP 36.7; O2SAT 95; BMI 26.7
--- NOTE | 2023-12-25 08:54 | EX.ED.DYSGE1 ---
HPI History of Present Illness Chief Complaint: Hyperglycemia Informant: patient Narrative Narrative: Patient presents via EMS secondary to nausea. He states he had nausea hit him suddenly this morning but he did not vomit. He called 911. EMS notes the patient's blood sugar is elevated at 443. He states he has not had a chance to take his morning medications. He denies abdominal pain or diarrhea. No fever or chills. 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 Restless legs Sleep apnea Home Medications metformin 500 mg tablet,extended release 24 hr 500 mg PO BID diabetes 05/02/19 [History Last Taken 03/18/22] fluconazole 200 mg tablet (Diflucan) 200 mg PO DAILY antibiotic 03/19/22 [History Last Taken 03/18/22] glipizide 5 mg tablet 5 mg PO BID diabetes 03/19/22 [History Last Taken 03/18/22] insulin glargine 100 unit/mL (3 mL) subcutaneous pen (Lantus Solostar U-100 Insulin) 10 unit subcut BID diabetes 03/19/22 [History Last Taken 03/18/22] ondansetron 4 mg disintegrating tablet 4 mg PO Q8H PRN nausea and vomiting #10 tabs 04/26/22 [Rx Last Taken Unknown] dicyclomine 20 mg tablet 20 mg PO TID PRN abdominal cramping #20 tabs 08/07/22 [Rx Last Taken Unknown] diphenoxylate-atropine 2.5 mg-0.025 mg tablet (Lomotil) 1 tab PO 4X/DAY PRN PRN diarrhea 5 days #20 tabs 10/30/22 [Rx Last Taken Unknown] cyclobenzaprine 10 mg tablet 10 mg PO TID PRN Muscle Spasm #20 TABLETS 08/26/23 [Rx Last Taken Unknown] hydrocortisone 1 % topical cream 1 applic topical TID PRN skin irritation #28.4 grams 08/26/23 [Rx Last Taken Unknown] ibuprofen 600 mg tablet 600 mg PO Q8H PRN PRN pain #20 TABLETS 08/26/23 [Rx Last Taken Unknown] ciprofloxacin HCl 500 mg tablet (Cipro) 500 mg PO BID #20 tabs 09/29/23 [Rx Last Taken Unknown] insulin glargine 100 unit/mL subcutaneous solution (Lantus U-100 Insulin) 1 unit subcut QPM 09/29/23 [History Last Taken Unknown] levothyroxine 100 mcg tablet 100 mcg PO DAILY 09/29/23 [History Last Taken Unknown] metronidazole 500 mg tablet 500 mg PO BID 10 days #20 tabs 09/29/23 [Rx Last Taken Unknown] magnesium citrate (Citrate of Magnesia oral) 300 ml PO DAILY PRN constipation #296 mL 12/08/23 [Rx Last Taken Unknown] meclizine 25 mg tablet 25 mg PO TID #30 tabs 12/08/23 [Rx Last Taken Unknown] ondansetron 4 mg disintegrating tablet 4 mg PO Q8H PRN PRN Nausea #10 tabs 12/25/23 [Rx Last Taken Unknown] Allergy/AdvReac Type Severity Reaction Status Date / Time diphenhydramine HCl Allergy Rash Verified 12/25/23 08:48 [From Benadryl] Penicillins Allergy Rash Verified 12/25/23 08:48 venom-honey bee Allergy Swelling Verified 12/25/23 08:48 [bee venom (honey bee)] Surgical History History of coronary artery stent placement Hx of inguinal herniorrhaphy Hx of left knee surgery Social History household members: none Smoking Status: Never smoker substance use type: does not use ROS ROS ED Constitutional Constitutional ED: Denies chills or fever(s) Eyes Eyes: Denies discharge from eye(s) ENT ENT ED: Denies discharge from eye(s), rhinorrhea or sore throat Cardiovascular Cardiovascular: Denies chest pain or palpitations Respiratory/Chest Respiratory/Chest: Denies cough or dyspnea Gastrointestinal Gastrointestinal: Reports nausea; Denies abdominal pain, diarrhea or vomiting Genitourinary Genitourinary ED: Denies dysuria Musculoskeletal Musculoskeletal: Denies back pain or extremity pain Integumentary Reports Abrasions; Denies rash Neurologic Neurologic: Denies headache(s) or weakness Psychiatric Psychiatric: Denies anxiety or depression Allergic/Immunologic Allergic/Immunologic ED: Denies lip swelling or urticaria EXAM Physical Exam Const Vital Signs: 12/25/23 08:45 12/25/23 08:47 Temperature 98.1 F Temperature Source Oral Pulse Rate 73 Respiratory Rate 15 Respiratory Effort Normal Non-Labored Respiratory Pattern Normal Blood Pressure 153/94 H Blood Pressure Mean 113 Pulse Ox 95 Oxygen Delivery Method Room Air Positive well nourished and well developed General Appearance ED: well developed HEENT HEENT Narrative: Scabbed lesions on patient's face, neck, and shoulders. No sign of secondary infection. Eyes EOMs intact bilaterally Chest Wall inspection of chest normal and palpation of chest normal Resp normal respiratory effort and clear to auscultation bilaterally Cardio regular rate and regular rhythm GI non-tender Palpation: soft Extremity normal to inspection Neuro oriented x3 and no sensory deficits noted Motor Exam: strength 5/5 throughout Psych mental status grossly normal Skin Skin Narrative: Scabbed lesions as noted above. MDM MDM MDM Narrative Medical decision making narrative: I did review patient's prior visits. His blood sugars usually 400s when he is here. IV line will be initiated. Patient be given a liter of IV fluids and a dose of Zofran. Will check electrolytes. History & Record Review Discussion w/independent historian: Patient Additional record(s) reviewed:: Prior ED visit and Prior labs Lab Data Attestation: I reviewed the patient's lab results. Labs: Laboratory Results - last 24 hr 12/25/23 09:00 Sodium 134 L Potassium 3.8 Chloride 102 Carbon Dioxide 28.0 Anion Gap 4 L BUN 19 H Creatinine 1.15 Estim Creat Clear Calc 82.86 Est GFR (MDRD) Af Amer 82 Est GFR (MDRD) Non-Af 68 BUN/Creatinine Ratio 16.5 Glucose 476 H* Calcium 9.3 Treatment and Re-Evaluation :: Chemistry studies significant for glucose of 476. BUN is 19 and creatinine is 1.15. After 1 L of IV fluids blood sugar is now 354. Patient will be given his dose of Lantus here which he is due for. He is also due for glipizide and metformin which he will take when he gets home. I will write him a prescription for Zofran. Discharge Plan Triage Chief Complaint: Hyperglycemia ED Provider: Shania Disla Dx/Rx/DC Orders Clinical Impression: Hyperglycemia, Nausea Instructions: ED Diabetic Hyperglycemia, ED Vomiting (Adult) Prescriptions: New ondansetron 4 mg tablet,disintegrating 4 mg PO Q8H PRN PRN (Reason: Nausea) Qty: 10 0RF No Action metformin 500 MG tablet 500 mg PO BID Patient Comments: diabetes insulin glargine [Lantus Solostar U-100 Insulin] 100 unit/mL (3 mL) Insulin Pen 10 unit SUBCUT BID fluconazole [Diflucan] 200 mg tablet 200 mg PO DAILY glipizide 5 mg tablet 5 mg PO BID Rx Instructions: Hold if glucose less than 130 mg/dl ondansetron 4 mg tablet,disintegrating 4 mg PO Q8H PRN (Reason: nausea and vomiting) Qty: 10 0RF dicyclomine 20 mg tablet 20 mg PO TID PRN (Reason: abdominal cramping) Qty: 20 0RF diphenoxylate-atropine [Lomotil] 2.5-0.025 mg tablet 1 tab PO 4X/DAY PRN PRN (Reason: diarrhea) 5 Days Qty: 20 0RF meclizine 25 mg tablet 25 mg PO TID Qty: 30 0RF magnesium citrate [Citrate of Magnesia] Solution 300 ml PO DAILY PRN (Reason: constipation) Qty: 296 0RF Rx Instructions: Drink one half bottle if no bowel movement within 4 hours drink the second half of the bottle ibuprofen 600 mg tablet 600 mg PO Q8H PRN PRN (Reason: pain) Qty: 20 0RF cyclobenzaprine 10 mg tablet 10 mg PO TID PRN (Reason: Muscle Spasm) Qty: 20 0RF hydrocortisone 1 % cream 1 applic topical TID PRN (Reason: skin irritation) Qty: 28.4 0RF levothyroxine 100 mcg tablet 100 mcg PO DAILY Patient Comments: Take 1 tab by mouth once daily on an empty stomach insulin glargine [Lantus U-100 Insulin] 100 unit/mL solution 1 unit subcut QPM ciprofloxacin HCl [Cipro] 500 mg tablet 500 mg PO BID Qty: 20 0RF metronidazole 500 mg tablet 500 mg PO BID 10 Days Qty: 20 0RF Primary Care Provider: Linden Chavez Referrals: Linden Chavez DO [Primary Care Provider] - 3-5 Days if not improving Disposition Disposition: Home, Self Care
[2023-12-25] MEDS: 0.9% Normal Saline (1000mL) 1,000 ML 1000 ML IV (09:02)
[2023-12-25] MEDS: Ondansetron 4 MG/2 ML Vial IV (09:02)
--- OUTSIDE RECORDS SUMMARY | 2023-12-25 09:15 | XMS RPT_ITS | CCD ---
Author Name Unknown Address [address] [place] [address] Organization [facility] Care Team Providers Care Geophysical Prospecting Permit Agent Name Role Phone Unavailable Primary Care Provider Unavailabl e Allergies Allergy Classification Reported Allergen(s) Allergy Type Date of Onset Reaction(s) Facility (1 source) bee venom Propensity to adverse reactions to drug 9 [place], [place] (2 sources) diphenhydrAMINE; Translations: [DIPHENHYDRAMINE] Drug Allergy 1 [place], [place] (2 sources) Penicillins; Translations: [PENICILLINS] Propensity to adverse reactions to drug 1 [place], [place] (1 source) diphenhydrAMINE Drug Allergy 1 Swelling [facility] Work Phone: (1 source) Penicillins Drug Allergy 1 Rash [facility] Work Phone: (2 sources) Bee Sting; Translations: [BEE STING] Allergy to substance 1 Swelling [facility] Work Phone: Medications Current Medications Medication Drug [...] Drug Class(es) Dates Sig (Normalized) Sig (Original) [id number] 200 actuat albuterol 0.09 mg/actuat metered dose [...] Coronary arteriosclerosis; Translations: [Atherosclerotic heart disease of [place] coronary artery without angina pectoris] Onset: 06-22-2011 [...] 15:51-0400 Body temperature 97.59 [degF] Jimmy Rachel SCALE EXPERT.DIRECTOR OF GLOBAL SALES Work Phone: [facility] 08-18-2023 15:51-0400 Body weight 102.97 kg Jimmy Ramos SCALE EXPERT.DIRECTOR OF GLOBAL SALES Work Phone: [facility] 08-18-2023 15:51-0400 Diastolic blood pressure 80 mm[Hg] Jimmy Ramos SCALE EXPERT.DIRECTOR OF GLOBAL SALES Work Phone: [facility] 08-18-2023 15:51-0400 Heart rate 74 /min Jimmy Ramos SCALE EXPERT.DIRECTOR OF GLOBAL SALES Work Phone: [facility] 08-18-2023 15:51-0400 Respiratory rate 20 /min Jimmy Ramos SCALE EXPERT.DIRECTOR OF GLOBAL SALES Work Phone: [facility] 08-18-2023 15:51-0400 SaO2% (BldA) [Mass fraction] 98 % Jimmy Ramos SCALE EXPERT.DIRECTOR OF GLOBAL SALES Work Phone: [facility] 08-18-2023 15:51-0400 Systolic blood pressure 127 mm[Hg] Jimmy Ramos SCALE EXPERT.DIRECTOR OF GLOBAL SALES Work Phone: [facility] 10-07-2019 07:48-0500 Body Temperature 96.1 [degF] [facility], [place] 10-07-2019 07:48-0500 BP Diastolic 90 mm[Hg] [facility] , [place] 10-07-2019 07:48-0500 BP Systolic 139 mm[Hg] [facility] , [place] 10-07-2019 07:48-0500 Pulse (Heart Rate) 72 /min Aden Martinez [facility], [place] 10-07-2019 07:48-0500 Pulse Oximetry 95 % Aden Martinez [facility] , [place] 10-07-2019 07:48-0500 Respiratory Rate 16 /min Aden Martinez [facility], [place] 10-07-2019 06:06-0500 BMI (Body Mass Index) 26.7 kg/m2 Aden Martinez [facility], [place] 10-07-2019 06:06-0500 Body weight 102.15 kg [facility] , [place] 10-06-2019 12:03-0500 Height 195.6 cm Aden Valentin [facility] , [place] Encounters Encounter Date Encounter Type Care Provider Facility Start: 08-18-2023 End: 08-18-2023 ambulatory Facility:[facility] Start: 08-18-2023 End: 08-18-2023 Office outpatient visit 15 minutes Jimmy Ramos APRN.CNP Work Phone: [facility] Procedures Date Procedure Procedure Detail [...] Work Phone: Start: 11-21-2013 Colonoscopy Jimmy justice SCALE EXPERT.DIRECTOR OF GLOBAL SALES Work Phone: Start: 06-22-2011 History of placement of stent for coronary artery disease S/P coronary artery stent placement Jimmy Ramos SCALE EXPERT.DIRECTOR OF GLOBAL SALES Work Phone: Plan of Treatment Date Care Activity Detail Author Start: 05-03-2026 Urine microalbumin profile DTaP,Tdap,Td Vaccine (2 - Td or Tdap) [facility] Start: 07-01-2023 Covid-19 Vaccine ( season) Covid-19 Vaccine ( season) [facility] Start: 07-01-2023 [facility] Start: 10-31-2022 Depression Assessment Depression Assessment [facility] Start: 05-13-2021 Hepatitis C antibody, confirmatory test Dilated Retinal Exam [facility] Start: 11-08-2020 Annual PCP Team Chronic Disease Visit Annual PCP Team Chronic Disease Visit [facility] Start: 10-06-2020 Creatinine monitoring Creatinine monitoring [facility] , [place] Start: 10-06-2020 Potassium monitoring Potassium monitoring [facility], [place] Start: 2020 Hepatitis B Vaccine (1 of 3 - Risk 3-dose series) Hepatitis B Vaccine (1 of 3 - Risk 3-dose series) [facility] Start: 2020 RSV Vaccine (1 - 1-dose 60+ series) RSV Vaccine (1 - 1-dose 60+ series) [facility] Start: 02-17-2020 3 comp foot exam completed Diabetic Foot Exam [facility] Start: 07-14-2019 Hepatitis B screening Urine Albumin:Creatinine Ratio [facility] Start: 07-14-2019 Hepatitis B surface antibody level LDL Cholesterol [facility] Start: 07-01-2019 Influenza vaccination Flu vaccine (#1) [place] Start: 06-06-2019 Hemoglobin A1c/Hemoglobin.total in Blood HbA1C [facility] Start: 11-21-2018 Colonoscopy Colonoscopy [facility] Start: 11-21-2018 Colorectal Cancer Screening Colorectal Cancer Screening [facility] Start: 2015 Prostate Cancer Screening Discussion Prostate Cancer Screening Discussion [facility] Start: 06-08-2014 Fecal Occult Blood Fecal Occult Blood [facility] Start: 07-22-2012 Pneumococcal vaccination Pneumococcal Vaccine (2 - PCV) [facility] Start: 2010 Colon cancer screen colonoscopy Colon cancer screen colonoscopy [place], [place] Start: 2010 Shingles Vaccine (1 of 2) Shingles Vaccine (1 of 2) [place] Start: 2010 Shingrix Vaccine (1 of 2) Shingrix Vaccine (1 of 2) [facility] Start: 2005 Cologuard (FIT-DNA) Cologuard (FIT-DNA) [facility] Start: [address] Colonography [facility] Start: 2005 Sigmoidoscopy Sigmoidoscopy [facility] Start: 2000 Diabetes screen Diabetes screen [place], [place] Start: 1978 BP Controlled (<130/80) BP Controlled (<130/80) [facility] in Start: 1978 HIV Screening HIV Screening [facility] Start: 1975 HIV screen HIV screen [place], [place] Start: 1971 DTaP/Tdap/Td vaccine (1 - Tdap) DTaP/Tdap/Td vaccine (1 - Tdap) [place] Start: 1970 Lipid screen Lipid screen [place], [place] Start: 1960 Hepatitis C screen Hepatitis C screen [place], [place] Initiate Oxygen Ther apy Protocol Initiate Oxygen Therapy Protocol Respiratory Care Routine Daily until discontinued starting 10/05/2019 [place] Immunizations Immunization Date Immunization Notes Care Provider Fa janetmarcus 11-08-2019 influenza virus vacc ine, unspecified formulation Jimmy Ramos SCALE EXPERT.DIRECTOR OF GLOBAL SALES Work Phone: [facility] 08-08-2012 tetanus and diphther ia toxoids, adsorbed, preservative free, for adult use (2 Lf of tetanus toxoid and 2 Lf of diphtheria toxoid) Jimmy Ramos SCALE EXPERT.DIRECTOR OF GLOBAL SALES Work Phone: [facility] 07-22-2011 pneumococcal polysaccharide vaccine, 23 valent Jimmy Ramos SCALE EXPERT.DIRECTOR OF GLOBAL SALES Work Phone: [facility] Payers Date Payer Category Payer Medicaid [facility] MEDIC AID [facility] MEDICAID [id number] 2022-Present [phone] [address] [place] [address] Medicaid [id number] 2022 Medicaid [id number] Social History Date Type Detail Facility Start: 10-06-2019 End: 08-18-2023 Tobacco smoking status NHIS Never smoker [facility] Start: 10-06-2019 Alcohol intake Ex-drinker (finding) [place], [place] Start: 10-06-2019 Alcohol Comment Last drinking 1992, Hx EtOH 10 years, never attended AA program [place], [place] Start: 1960 Sex Assigned At Not on file [place], [place] Start: 08-18-2023 Tobacco use and exposure Forme r smokeless tobacco user [facility] End: 07-01-1978 History of tobacco use User of smokeless tobacco [facility] Start: 08-18-2023 Alcohol intake Current non-dr dental associate of alcohol (finding) [facility] Start: 10-05-2020 End: 08-18-2023 History of Social function [facility] Start: 10-05-2020 End: 08-18-2023 Tobacco use panel [facility] Adult Depression Screening Assessment 5 [facility] Start: 08-18-2023 Tobacco Comment Quit when he s wallowed a wad of chew playing baseball! [facility] Medical Equipment Procedure Code Equipment Code Equipment Origin al Text Equipment Identifier Dates Start: 09-16-2017 Progress note 08-18-2023 Note Date & Type Note Facility 08-18-2023 Note HNO ID: [id number] Author: Jimmy Ramos APRN.DIRECTOR OF GLOBAL SALES Service: ? Author Type: Nurse Practitioner Type: [...] Colon polyp 2013 adenomatous Coronary artery disease [place] in 1994 Diabetic neuropathy (HCC) DM (diabetes [...] headaches. Objective Physic (more content not included)... [facility] History of Present illness Narrative 08-18-2023 Jimmy Ramos APRN.[facility] - 08/18/2023 4:12 PM EDT Note Date [...] Colon polyp 2013 adenomatous Coronary artery disease [place] in 1994 Diabetic neuropathy (HCC) DM (diabetes [...] of care. This note was generated using [employer] software. It may contain errors in wording, punctuation, or spelling. Jimmy Ramos APRN.TAMY documented in this encounter [facility] History of Past illness Narrative 10-13-2015 Note Date & Type Note Facility documented as of this encounter (statuses as of 08/18/2023) [facility] Evaluation note Note Date & Type Note Facility documented in this encounter [facility] Hospital Course * Haroon Erickson MD - 10/06/2019 3:22 PM EST Discharge Summary Jerald Yoedr : 1960 ADMIT DATE: 10/05/2019 DISCHARGE DATE: [...] DISCHARGE MEDICATIONS: Jerald Yoder Home Medication Instructions IFEOMA:[id number] Printed on:10/06/19 1972 Medication Information aspirin 81 MG tablet Take [...] Complexity: follow up within 7-14 calendar days (26435) [] Severe Complexity: follow up within 7 calendar days (55981) FOLLOW UP TESTING, PENDING RESULTS OR REFERRALS [...] most local grocery stores, pharmacies, and chain [place]. com. cn-stores. ? If you have any questions about [...] be monitored and followed by the diet poultry field service technician. * Vini Calloway, RN - 10/06/2019 [...] FoundDocuments on File Type Date Recorded Patient Tower Cleaner Expl anation Advance Directives and Living Will Power of Binding Printer Latest Code Status on File Code Status [...] DATE CREATED AUTHOR AUTHOR'S ORGANIZ ATION 08/20/2023 [facility] Source Comments (unrecognize d section and content) In the event this informatio n is protected by the Federal Confidentiality of Alcohol and Drug Abuse Patient Records regulations: The Federal rules restrict any use of the information to criminally investigate or prosecute any alcohol or drug abuse patient.[facility] Reason for Visit (unrecogniz ed section and [...] BE BASED ON THE PRIMARY CLINICAL RECORDS. [email or web address] [facility]. provides no warranty or guarantee of the accuracy or completeness of information in this document.
[2023-12-25 09:53] LABS: Anion Gap 4 (5-15); BUN 19 mg/dL (7-18); BUN/Creat Ratio 16.5 RATIO (10-20); Calcium,Total 9.3 mg/dL (8.5-10.1); Chloride 102 mmol/L (98-107); Creatinine, Serum 1.15 mg/dL (0.70-1.30); EST Glomerular Filtration Rate 68 mL/min (>60); Est Glom Filt Rate - Afr Amer 82 mL/min (>60); Estimated Creatinine Clearance 82.86 ml/min; Glucose 476 mg/dL (74-106); Potassium 3.8 mmol/L (3.5-5.1); Sodium Level 134 mmol/L (136-145)
[2023-12-25 10:53] LABS: Bedside Glucose 354 mg/dL (74-106)
[2023-12-25] MEDS: Insulin Glargine-YFGN 100 UNIT/ML Pen 10 UNIT SC (11:42)
[2023-12-25 11:45] VITALS: BP 147/81; PULSE 74; RESP 16; TEMP 36.3; O2SAT 97
== END 2023-12-25 11:45 | disposition home or self-care (01) ==
PROVIDERS: Emergency Provider Emergency Medicine; PCP Family Medicine; Visit Provider Emergency Medicine
DX: E11.65 Type 2 diabetes mellitus with hyperglycemia (principal); J44.9 Chronic obstructive pulmonary disease, unspecified; R11.0 Nausea; I25.2 Old myocardial infarction; G47.30 Sleep apnea, unspecified; Z95.5 Presence of coronary angioplasty implant and graft
CPT/HCPCS: 80048; 82962; 96361; 96374; 99283; J7030; J2405

== ENCOUNTER → 2024-01-05 | Outpatient (CLI) | payer MEDICAID, SELFPAY ==
--- OUTSIDE RECORDS SUMMARY | 2024-01-05 11:47 | XMS RPT_ITS | CCD ---
Author Name Unknown Address [address] [place] [address] Organization [facility] Care Team Providers Care Oven Heater Helper Name Role Phone Unavailable Primary Care Provider Unavailabl e Allergies Allergy Classification Reported Allergen(s) Allergy Type Date of Onset Reaction(s) Facility (1 source) bee venom Propensity to adverse reactions to drug 9 [place], [place] (2 sources) diphenhydrAMINE; Translations: [DIPHENHYDRAMINE] Drug Allergy 1 [place] (2 sources) Penicillins; Translations: [PENICILLINS] Propensity to adverse reactions to drug 1 [place] (1 source) diphenhydrAMINE Drug Allergy 1 Swelling [facility] Work Phone: (1 source) Penicillins Drug Allergy 1 Rash [facility] Work Phone: (2 sources) Bee Sting; Translations: [BEE STING] Allergy to substance 1 Swelling [facility] Work Phone: Medications Current Medications Medication [...] Drug Class(es) Dates Sig (Normalized) Sig (Original) [id number] 200 actuat albuterol 0.09 mg/actuat metered dose [...] Coronary arteriosclerosis; Translations: [Atherosclerotic heart disease of [place] coronary artery without angina pectoris] Onset: 06-22-2011 [...] 15:51-0400 Body temperature 97.59 [degF] Jimmy Rachel CLAIM ADJUSTER.BENCH SHEAR OPERATOR Work Phone: [facility] 08-18-2023 15:51-0400 Body weight 102.97 kg Jimmy Ramos CLAIM ADJUSTER.BENCH SHEAR OPERATOR Work Phone: [facility] 08-18-2023 15:51-0400 Diastolic blood pressure 80 mm[Hg] Jimmy Ramos CLAIM ADJUSTER.BENCH SHEAR OPERATOR Work Phone: [facility] 08-18-2023 15:51-0400 Heart rate 74 /min Jimmy Ramos CLAIM ADJUSTER.BENCH SHEAR OPERATOR Work Phone: [facility] 08-18-2023 15:51-0400 Respiratory rate 20 /min Jimmy Ramos CLAIM ADJUSTER.BENCH SHEAR OPERATOR Work Phone: [facility] 08-18-2023 15:51-0400 SaO2% (BldA) [Mass fraction] 98 % Jimmy Ramos CLAIM ADJUSTER.BENCH SHEAR OPERATOR Work Phone: [facility] 08-18-2023 15:51-0400 Systolic blood pressure 127 mm[Hg] Jimmy Ramos CLAIM ADJUSTER.BENCH SHEAR OPERATOR Work Phone: [facility] 10-07-2019 07:48-0500 Body Temperature 96.1 [degF] [facility] 10-07-2019 07:48-0500 BP Diastolic 90 mm[Hg] [facility] , [place] 10-07-2019 07:48-0500 BP Systolic 139 mm[Hg] [facility] , [place] 10-07-2019 07:48-0500 Pulse (Heart Rate) 72 /min Aden Martinez [facility], [place] 10-07-2019 07:48-0500 Pulse Oximetry 95 % Aden Martinez [facility] , [place] 10-07-2019 07:48-0500 Respiratory Rate 16 /min Aden Martinez [facility], [place] 10-07-2019 06:06-0500 BMI (Body Mass Index) 26.7 kg/m2 Aden Martinez [facility], [place] 10-07-2019 06:06-0500 Body weight 102.15 kg [facility] , [place] 10-06-2019 12:03-0500 Height 195.6 cm Aden Valentin [facility] , [place] Encounters Encounter Date Encounter Type Care Provider Facility Start: 08-18-2023 End: 08-18-2023 ambulatory Facility:[facility] Start: 08-18-2023 End: 08-18-2023 Office outpatient visit 15 minutes Jimmy Ramos APRN.CNP Work Phone: [facility] Procedures Date Procedure Procedure Detail [...] Work Phone: Start: 11-21-2013 Colonoscopy Jimmy justice CLAIM ADJUSTER.BENCH SHEAR OPERATOR Work Phone: Start: 06-22-2011 History of placement of stent for coronary artery disease S/P coronary artery stent placement Jimmy Ramos CLAIM ADJUSTER.BENCH SHEAR OPERATOR Work Phone: Plan of Treatment Date Care Activity Detail Author Start: 05-03-2026 Urine microalbumin profile DTaP,Tdap,Td Vaccine (2 - Td or Tdap) [facility] Start: 07-01-2023 Covid-19 Vaccine ( season) Covid-19 Vaccine ( season) [facility] Start: 07-01-2023 Influenza [facility] Start: 10-31-2022 Depression Assessment Depression Assessment [facility] Start: 05-13-2021 Hepatitis C antibody, confirmatory test Dilated Retinal Exam [facility] Start: 11-08-2020 Annual PCP Team Chronic Disease Visit Annual PCP Team Chronic Disease Visit [facility] Start: 10-06-2020 Creatinine monitoring Creatinine monitoring [facility] , [place] Start: 10-06-2020 Potassium monitoring Potassium monitoring [facility], [place] Start: 2020 Hepatitis B Vaccine (1 of 3 - Risk 3-dose series) Hepatitis B Vaccine (1 of 3 - Risk 3-dose series) [facility] Start: 2020 RSV Vaccine (1 - 1-dose 60+ series) RSV Vaccine (1 - 1-dose 60+ series) [facility] Start: 02-17-2020 3 comp foot exam completed Diabetic Foot Exam [facility] Start: 07-14-2019 Hepatitis B screening Urine Albumin:Creatinine Ratio [facility] Start: 07-14-2019 Hepatitis B surface antibody level LDL Cholesterol [facility] Start: 07-01-2019 Influenza vaccination Flu vaccine (#1) [place] Start: 06-06-2019 Hemoglobin A1c/Hemoglobin.total in Blood HbA1C [facility] Start: 11-21-2018 Colonoscopy Colonoscopy [facility] Start: 11-21-2018 Colorectal Cancer Screening Colorectal Cancer Screening [facility] Start: 2015 Prostate Cancer Screening Discussion Prostate Cancer Screening Discussion [facility] Start: 06-08-2014 Fecal Occult Blood Fecal Occult Blood [facility] Start: 07-22-2012 Pneumococcal vaccination Pneumococcal Vaccine (2 - PCV) [facility] Start: 2010 Colon cancer screen colonoscopy Colon cancer screen colonoscopy [place], [place] Start: 2010 Shingles Vaccine (1 of 2) Shingles Vaccine (1 of 2) [place] Start: 2010 Shingrix Vaccine (1 of 2) Shingrix Vaccine (1 of 2) [facility] Start: 2005 Cologuard (FIT-DNA) Cologuard (FIT-DNA) [facility] Start: [address] Colonography [facility] Start: 2005 Sigmoidoscopy Sigmoidoscopy [facility] Start: 2000 Diabetes screen Diabetes screen [place], [place] Start: 1978 BP Controlled (<130/80) BP Controlled (<130/80) [facility] in Start: 1978 HIV Screening HIV Screening [facility] Start: 1975 HIV screen HIV screen [place], [place] Start: 1971 DTaP/Tdap/Td vaccine (1 - Tdap) DTaP/Tdap/Td vaccine (1 - Tdap) [place] Start: 1970 Lipid screen Lipid screen [place], [place] Start: 1960 Hepatitis C screen Hepatitis C screen [place], [place] Initiate Oxygen Ther apy Protocol Initiate Oxygen Therapy Protocol Respiratory Care Routine Daily until discontinued starting 10/05/2019 [place] Immunizations Immunization Date Immunization Notes Care Provider Fa janetmarcus 11-08-2019 influenza virus vacc ine, unspecified formulation Jimmy Ramos CLAIM ADJUSTER.BENCH SHEAR OPERATOR Work Phone: [facility] 08-08-2012 tetanus and diphther ia toxoids, adsorbed, preservative free, for adult use (2 Lf of tetanus toxoid and 2 Lf of diphtheria toxoid) Jimmy Ramos CLAIM ADJUSTER.BENCH SHEAR OPERATOR Work Phone: [facility] 07-22-2011 pneumococcal polysaccharide vaccine, 23 valent Jimmy Ramos CLAIM ADJUSTER.BENCH SHEAR OPERATOR Work Phone: [facility] Payers Date Payer Category Payer Medicaid [facility] MEDIC AID [facility] MEDICAID [id number] 2022-Present [phone] [address] [place] [address] Medicaid [id number] 2022 Medicaid [id number] Social History Date Type Detail Facility Start: 10-06-2019 End: 08-18-2023 Tobacco smoking status NHIS Never smoker [facility] Start: 10-06-2019 Alcohol intake Ex-drinker (finding) [place] Start: 10-06-2019 Alcohol Comment Last drinking 1992, Hx EtOH 10 years, never attended AA program [place], [place] Start: 1960 Sex Assigned At Not on file [place] Start: 08-18-2023 Tobacco use and exposure Forme r smokeless tobacco user [facility] End: 07-01-1978 History of tobacco use User of smokeless tobacco [facility] Start: 08-18-2023 Alcohol intake Current non-dr digital media representative of alcohol (finding) [facility] Start: 10-05-2020 End: 08-18-2023 History of Social function [facility] Start: 10-05-2020 End: 08-18-2023 Tobacco use panel [facility] Adult Depression Screening Assessment 5 [facility] Start: 08-18-2023 Tobacco Comment Quit when he s wallowed a wad of chew playing baseball! [facility] Medical Equipment Procedure Code Equipment Code Equipment Origin al Text Equipment Identifier Dates Start: 09-16-2017 Progress note 08-18-2023 Note Date & Type Note Facility 08-18-2023 Note HNO ID: [id number] Author: Jimmy Ramos APRN.BENCH SHEAR OPERATOR Service: ? Author Type: Nurse Practitioner Type: [...] Colon polyp 2013 adenomatous Coronary artery disease [place] in 1994 Diabetic neuropathy (HCC) DM (diabetes [...] headaches. Objective Physic (more content not included)... [facility] History of Present illness Narrative 08-18-2023 Jimmy Ramos APRN.[facility] - 08/18/2023 4:12 PM EDT Note [...] Colon polyp 2013 adenomatous Coronary artery disease [place] in 1994 Diabetic neuropathy (HCC) DM (diabetes [...] of care. This note was generated using [employer] software. It may contain errors in wording, punctuation, or spelling. Jimmy Ramos APRN.TAMY documented in this encounter [facility] History of Past illness Narrative 10-13-2015 Note Date & Type Note Facility documented as of this encounter (statuses as of 08/18/2023) [facility] Evaluation note Note Date & Type Note Facility documented in this encounter [facility] Hospital Course * Haroon Erickson MD [...] DISCHARGE MEDICATIONS: Jerald Yoder Home Medication Instructions IFEOMA:[id number] Printed on:10/06/19 5730 Medication Information aspirin 81 MG tablet Take [...] Complexity: follow up within 7-14 calendar days (38165) [] Severe Complexity: follow up within 7 calendar days (51077) FOLLOW UP TESTING, PENDING RESULTS OR REFERRALS [...] most local grocery stores, pharmacies, and chain [employer]-stores. ? If you have any questions about [...] be monitored and followed by the diet endoscopic technician. * Vini Calloway, RN - 10/06/2019 [...] FoundDocuments on File Type Date Recorded Patient Machine Driller Expl anation Advance Directives and Living Will Power of Mobile Application Engineer Latest Code Status on File Code Status [...] DATE CREATED AUTHOR AUTHOR'S ORGANIZ ATION 08/20/2023 [facility] Source Comments (unrecognize d section and content) In the event this informatio n is protected by the Federal Confidentiality of Alcohol and Drug Abuse Patient Records regulations: The Federal rules restrict any use of the information to criminally investigate or prosecute any alcohol or drug abuse patient.[facility] Reason for Visit (unrecogniz ed section [...] BE BASED ON THE PRIMARY CLINICAL RECORDS. [facility]. provides no warranty or guarantee of the accuracy or completeness of information in this document.
[2024-01-05 15:55] LABS: Hemoglobin A1c 12.2 % (3.8-5.6)
[2024-01-05 16:12] LABS: CRP 3.41 mg/L (0.0-3.0); Thyroid Stim Hormone (TSH) 8.45 uIU/mL (0.358-3.74)
[2024-01-05 16:24] LABS: Erythrocyte Sedimentation Rate 3 mm/hr (0-20)
[2024-01-09 16:09] LABS: Endomysial Antibody IgA Negative (Negative); Immunoglobulin A 363 mg/dL (61-437); t-Transglutaminase IgA <2 U/mL (0-3)
== END | disposition home or self-care (01) ==
LOC: BFHLAB 11:21
PROVIDERS: PCP Family Medicine; Visit Provider Family Medicine
DX: E11.65 Type 2 diabetes mellitus with hyperglycemia (principal); E03.9 Hypothyroidism, unspecified; K52.9 Noninfective gastroenteritis and colitis, unspecified
CPT/HCPCS: 36415; 82784; 83036; 83516; 84443; 85652; 86140; 86255

== ENCOUNTER 2024-01-26 23:30 | Emergency (ER) | payer MEDICAID, SELFPAY ==
[2024-01-26 23:30] VITALS: BP 144/89; PULSE 77; RESP 18; TEMP 36.8; O2SAT 93; BMI 27.5
--- NOTE | 2024-01-26 23:49 | EKG12_ITS ---
Test Reason : GEN. ILLNESS Blood Pressure : / mmHG Vent. Rate : 074 BPM Atrial Rate : 074 BPM P-R Int : 186 ms QRS Dur : 092 ms QT Int : 390 ms P-R-T Axes : 048 -44 032 degrees QTc Int : 432 ms Normal sinus rhythm Left axis deviation Abnormal ECG Confirmed by TESSA TRACY, MENDY ([id number]), index editor JADEN HERNANDEZ ([id number]) on 01/30/2024 11:03:48 AM Referred By: YUMIKO Confirmed By:MENDY ZARATE MD
--- NOTE | 2024-01-26 23:53 | EX.ED.DYSGE1 ---
HPI History of Present Illness Chief Complaint: General Illness Informant: patient Narrative Narrative: Patient presents stating he does not feel right tonight. He states he tried to lie down to go to sleep but just cannot get comfortable. He states while eating dinner around 4 PM he did choke and have a coughing episode. He has not had continued cough. He did fall yesterday as well and hit his head. He is on Eliquis. He is complaining of bilateral leg pain. He did not take anything for pain at home prior to coming in. He states he was also told that his blood sugars have been elevated near 500. 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 Restless legs Sleep apnea Home Medications metformin 500 mg tablet,extended release 24 hr 500 mg PO BID diabetes 05/02/19 [History Last Taken 03/18/22] fluconazole 200 mg tablet (Diflucan) 200 mg PO DAILY antibiotic 03/19/22 [History Last Taken 03/18/22] glipizide 5 mg tablet 5 mg PO BID diabetes 03/19/22 [History Last Taken 03/18/22] insulin glargine 100 unit/mL (3 mL) subcutaneous pen (Lantus Solostar U-100 Insulin) 10 unit subcut BID diabetes 03/19/22 [History Last Taken 03/18/22] ondansetron 4 mg disintegrating tablet 4 mg PO Q8H PRN nausea and vomiting #10 tabs 04/26/22 [Rx Last Taken Unknown] dicyclomine 20 mg tablet 20 mg PO TID PRN abdominal cramping #20 tabs 08/07/22 [Rx Last Taken Unknown] diphenoxylate-atropine 2.5 mg-0.025 mg tablet (Lomotil) 1 tab PO 4X/DAY PRN PRN diarrhea 5 days #20 tabs 10/30/22 [Rx Last Taken Unknown] cyclobenzaprine 10 mg tablet 10 mg PO TID PRN Muscle Spasm #20 TABLETS 08/26/23 [Rx Last Taken Unknown] hydrocortisone 1 % topical cream 1 applic topical TID PRN skin irritation #28.4 grams 08/26/23 [Rx Last Taken Unknown] ibuprofen 600 mg tablet 600 mg PO Q8H PRN PRN pain #20 TABLETS 08/26/23 [Rx Last Taken Unknown] ciprofloxacin HCl 500 mg tablet (Cipro) 500 mg PO BID #20 tabs 09/29/23 [Rx Last Taken Unknown] insulin glargine 100 unit/mL subcutaneous solution (Lantus U-100 Insulin) 1 unit subcut QPM 09/29/23 [History Last Taken Unknown] levothyroxine 100 mcg tablet 100 mcg PO DAILY 09/29/23 [History Last Taken Unknown] metronidazole 500 mg tablet 500 mg PO BID 10 days #20 tabs 09/29/23 [Rx Last Taken Unknown] magnesium citrate (Citrate of Magnesia oral) 300 ml PO DAILY PRN constipation #296 mL 12/08/23 [Rx Last Taken Unknown] meclizine 25 mg tablet 25 mg PO TID #30 tabs 12/08/23 [Rx Last Taken Unknown] ondansetron 4 mg disintegrating tablet 4 mg PO Q8H PRN PRN Nausea #10 tabs 12/25/23 [Rx Last Taken Unknown] Allergy/AdvReac Type Severity Reaction Status Date / Time diphenhydramine HCl Allergy Rash Verified 01/26/24 23:33 [From Benadryl] Penicillins Allergy Rash Verified 01/26/24 23:33 venom-honey bee Allergy Swelling Verified 01/26/24 23:33 [bee venom (honey bee)] Surgical History History of coronary artery stent placement Hx of inguinal herniorrhaphy Hx of left knee surgery Social History household members: none Smoking Status: Never smoker substance use type: does not use ROS ROS ED Constitutional Constitutional ED: Denies chills or fever(s) Eyes Eyes: Denies discharge from eye(s) ENT ENT ED: Denies discharge from eye(s), rhinorrhea or sore throat Cardiovascular Cardiovascular: Denies chest pain Respiratory/Chest Respiratory/Chest: Reports cough; Denies dyspnea Gastrointestinal Gastrointestinal: Denies abdominal pain, nausea or vomiting Genitourinary Genitourinary ED: Denies dysuria Musculoskeletal Musculoskeletal: Reports extremity pain and myalgias; Denies back pain Integumentary Denies rash Neurologic Neurologic: Reports weakness; Denies headache(s) Psychiatric Psychiatric: Denies anxiety or depression Allergic/Immunologic Allergic/Immunologic ED: Denies lip swelling or urticaria EXAM Physical Exam Const Vital Signs: 01/26/24 23:30 01/26/24 23:41 01/27/24 00:43 Temperature 98.2 F Temperature Source Oral Pulse Rate 77 78 Respiratory Rate 18 21 H Respiratory Effort Normal Respiratory Pattern Normal Blood Pressure 144/89 H 91/54 L Blood Pressure Mean 107 66 Pulse Ox 93 97 Oxygen Delivery Method Room Air Room Air 01/27/24 02:43 01/27/24 04:00 Temperature Temperature Source Pulse Rate 70 65 Respiratory Rate 18 19 H Respiratory Effort Respiratory Pattern Blood Pressure 114/77 102/66 Blood Pressure Mean 89 78 Pulse Ox 97 97 Oxygen Delivery Method Room Air Room Air Positive well nourished and well developed General Appearance ED: well developed HEENT HEENT Narrative: Scabbed wound to the right maxilla. No surrounding cellulitis. Eyes EOMs intact bilaterally Chest Wall inspection of chest normal and palpation of chest normal Resp normal respiratory effort and clear to auscultation bilaterally Cardio regular rate and regular rhythm GI non-tender Auscultation: normoactive bowel sounds Palpation: soft Extremity normal to inspection Extremity Narrative: Mild muscular tenderness throughout both legs. No deformity noted. Good range of motion. Neuro oriented x3 and no sensory deficits noted Psych mental status grossly normal MDM MDM MDM Narrative Medical decision making narrative: Patient placed on nuclear monitoring technician. EKG obtained to evaluate for cardiac arrhythmia/ischemia. Chest x-ray obtained to evaluate for acute lung pathology, cardiac size, or mediastinal abnormality. CT scan of the head will be obtained given his recent fall and being on Eliquis. Labwork obtained to evaluate for leukocytosis, anemia, and electrolyte derangement. Urinalysis obtained to evaluate for infection/hematuria. Swab for COVID, influenza, and RSV will be obtained. History & Record Review Discussion w/independent historian: Patient Additional record(s) reviewed:: Prior ED visit and Prior labs Lab Data Attestation: I reviewed the patient's lab results. Labs: Laboratory Results - last 24 hr 01/26/24 01/26/24 01/27/24 00:01 23:37 00:12 WBC 9.8 RBC 4.95 Hgb 14.3 Hct 40.8 MCV 82.4 MCH 28.9 MCHC 35.0 RDW Std Deviation 39.9 RDW Coeff of Manjinder 13.4 Plt Count 167 MPV 9.4 Immature Gran % (Auto) 0.300 Neut % (Auto) 83.0 H Lymph % (Auto) 8.4 L Yell % (Auto) 6.3 Eos % (Auto) 1.8 Baso % (Auto) 0.2 Absolute Neuts (auto) 8.1 H Absolute Lymphs (auto) 0.82 L Nucleated RBC % 0 Sodium 135 L Potassium 4.2 Chloride 100 Carbon Dioxide 30.0 Anion Gap 5 BUN 14 Creatinine 1.12 Estim Creat Clear Calc 85.08 Est GFR (MDRD) Af Amer 85 Est GFR (MDRD) Non-Af 70 BUN/Creatinine Ratio 12.5 Glucose 553 H* Calcium 9.3 Total Bilirubin 0.70 Direct Bilirubin 0.20 AST 16 ALT 24 Alkaline Phosphatase 71 Total Protein 6.8 Albumin 3.6 Globulin 3.2 Urine Color Straw Urine Clarity Clear Urine pH 6.0 Ur Specific [place] 1.015 Urine Protein Negative Urine Glucose (UA) 1000 H Urine Ketones Negative Urine Occult Blood Negative Urine Nitrite Negative Urine Bilirubin Negative Urine Urobilinogen Normal Ur Leukocyte Esterase Negative Urine RBC 0 SEEN Urine WBC 0 SEEN Ur Squamous Epith Cells 5-10 SEEN Calcium Oxalate Crystal 0 SEEN Uric Acid Crystals 0 SEEN Triple Phos Crystals 0 SEEN Other Crystals 0 SEEN Amorphous Sediment 0 SEEN Urine Bacteria 0 SEEN Hyaline Casts 0 SEEN Fine Granular Casts 0 SEEN Coarse Granular Casts 0 SEEN Waxy Casts 0 SEEN RBC Casts 0 SEEN WBC Casts 0 SEEN Urine Mucus 0 SEEN Urine Trichomonas 0 SEEN Urine Yeast RARE POC Glucose 468 H* 01/27/24 01/27/24 01/27/24 02:08 03:59 05:27 WBC RBC Hgb Hct MCV MCH MCHC RDW Std Deviation RDW Coeff of Manjinder Plt Count MPV Immature Gran % (Auto) Neut % (Auto) Lymph % (Auto) Yell % (Auto) Eos % (Auto) Baso % (Auto) Absolute Neuts (auto) Absolute Lymphs (auto) Nucleated RBC % Sodium Potassium Chloride Carbon Dioxide Anion Gap BUN Creatinine Estim Creat Clear Calc Est GFR (MDRD) Af Amer Est GFR (MDRD) Non-Af BUN/Creatinine Ratio Glucose Calcium Total Bilirubin Direct Bilirubin AST ALT Alkaline Phosphatase Total Protein Albumin Globulin Urine Color Urine Clarity Urine pH Ur Specific [place] Urine Protein Urine Glucose (UA) Urine Ketones Urine Occult Blood Urine Nitrite Urine Bilirubin Urine Urobilinogen Ur Leukocyte Esterase Urine RBC Urine WBC Ur Squamous Epith Cells Calcium Oxalate Crystal Uric Acid Crystals Triple Phos Crystals Other Crystals Amorphous Sediment Urine Bacteria Hyaline Casts Fine Granular Casts Coarse Granular Casts Waxy Casts RBC Casts WBC Casts Urine Mucus Urine Trichomonas Urine Yeast POC Glucose 464 H* 378 H 277 H Radiography Chest X-Ray - ED: 2 View, Read by ED Physician, Chronic Changes and No Infiltrates Diagnostic Testing: Clinical Impression(s) from Imaging Studies Chest X-Ray 01/27/24 00:04 IMPRESSION: Left basilar subsegmental atelectasis or scarring. No infiltrates. Electronically Signed: Lizette Grimaldo MD at 0:48 EDT , Brain CT 01/27/24 23:49 IMPRESSION: No acute abnormality. Electronically Signed: Lizette Grimaldo MD at 0:55 EDT , EKG Initial EKG: Attestation: I personally reviewed and interpreted this EKG as follows: Interpretation: Sinus Rhythm (Sinus at 74 with no acute ischemia.) Treatment and Re-Evaluation :: CBC was a white count 9.8 with a hemoglobin of 14.3. 83% neutrophils are noted. Chemistry studies significant for a sodium of 135 and a glucose of 553. LFTs are unremarkable. Urinalysis reveals glucose but no evidence of infection. Two-view chest x-ray per my interpretation reveals chronic changes with no evidence of infiltrate. Radiology interpretation reviewed and agrees. EKG is sinus rhythm with no evidence of ischemia. Swab for COVID, influenza, and RSV is negative. After 1 L of IV fluids, patient's blood sugar remains 464. He is given 10 units of subcu insulin and another liter of fluid. Repeat blood sugar an hour and a half later is 378. He received additional 8 units of subcu insulin and blood sugar at this time is 277. Patient is been sleeping comfortably here throughout the night. He is in no acute distress. He will be discharged home to continue his normal medication regimen. Discharge Plan Triage Chief Complaint: General Illness ED Provider: Shania Disla Dx/Rx/DC Orders Clinical Impression: Generalized weakness, Hyperglycemia Instructions: ED Diabetic Hyperglycemia, ED Weakness (Uncertain Cause) Prescriptions: No Action metformin 500 MG tablet 500 mg PO BID Patient Comments: diabetes insulin glargine [Lantus Solostar U-100 Insulin] 100 unit/mL (3 mL) Insulin Pen 10 unit SUBCUT BID fluconazole [Diflucan] 200 mg tablet 200 mg PO DAILY glipizide 5 mg tablet 5 mg PO BID Rx Instructions: Hold if glucose less than 130 mg/dl ondansetron 4 mg tablet,disintegrating 4 mg PO Q8H PRN (Reason: nausea and vomiting) Qty: 10 0RF dicyclomine 20 mg tablet 20 mg PO TID PRN (Reason: abdominal cramping) Qty: 20 0RF diphenoxylate-atropine [Lomotil] 2.5-0.025 mg tablet 1 tab PO 4X/DAY PRN PRN (Reason: diarrhea) 5 Days Qty: 20 0RF meclizine 25 mg tablet 25 mg PO TID Qty: 30 0RF magnesium citrate [Citrate of Magnesia] Solution 300 ml PO DAILY PRN (Reason: constipation) Qty: 296 0RF Rx Instructions: Drink one half bottle if no bowel movement within 4 hours drink the second half of the bottle ibuprofen 600 mg tablet 600 mg PO Q8H PRN PRN (Reason: pain) Qty: 20 0RF cyclobenzaprine 10 mg tablet 10 mg PO TID PRN (Reason: Muscle Spasm) Qty: 20 0RF hydrocortisone 1 % cream 1 applic topical TID PRN (Reason: skin irritation) Qty: 28.4 0RF levothyroxine 100 mcg tablet 100 mcg PO DAILY Patient Comments: Take 1 tab by mouth once daily on an empty stomach insulin glargine [Lantus U-100 Insulin] 100 unit/mL solution 1 unit subcut QPM ciprofloxacin HCl [Cipro] 500 mg tablet 500 mg PO BID Qty: 20 0RF metronidazole 500 mg tablet 500 mg PO BID 10 Days Qty: 20 0RF ondansetron 4 mg tablet,disintegrating 4 mg PO Q8H PRN PRN (Reason: Nausea) Qty: 10 0RF Primary Care Provider: Linden Chavez Referrals: Linden Chavez DO [Primary Care Provider] - 1-2 Weeks Disposition Disposition: Home, Self Care
[2024-01-26 23:56] LABS: Bedside Glucose 468 mg/dL (74-106)
--- NOTE | 2024-01-27 00:04 | RAD_ITS ---
INDICATION: cough EXAMINATION/TECHNIQUE: X-RAY - XR Chest 2 Views COMPARISON: 11/22/2023 FINDINGS: LINES/DEVICES: None. LUNGS: Minimal streaky opacities in the left lower lobe. No consolidation. No pneumothorax. MEDIASTINUM: Unremarkable. CARDIAC SILHOUETTE: Not enlarged. BONES AND SOFT TISSUES: No acute abnormalities. RAD/Chest PA and Lateral IMPRESSION: Left basilar subsegmental atelectasis or scarring. No infiltrates. Electronically Signed: Lizette Grimaldo MD at 0:48 EDT ,
[2024-01-27 00:16] LABS: Bacteria 0 SEEN /hpf (None Seen); Mucous, Urine 0 SEEN /hpf (<or=2+); Red Blood Cells-Urine 0 SEEN /hpf (0-5); White Blood Cells 0 SEEN /hpf (0-5)
[2024-01-27 00:22] LABS: Absolute Lymphocyte Count 0.82 X10^3/uL (0.83-4.51); Absolute Neutrophil Count 8.1 X10^3/uL (2.0-7.7); Basophil# 0.02 X10^3/uL; Basophil% 0.2 % (0-1); Eosinophil# 0.18 X10^3/uL; Eosinophils% 1.8 % (0-5); Hematocrit 40.8 % (40-54); Hemoglobin 14.3 g/dL (13.0-16.5); Lymphocyte # 0.82 X10^3/ul (0.83-4.51); Lymphocyte % 8.4 % (19-41); Mean Corpuscular Hgb 28.9 pg (27.0-32.0); Mean Corpuscular Volume 82.4 fL (80-94); Mean Platelet Vol. 9.4 fl (6.2-12.0); Monocyte# 0.62 X10^3/uL; Monocyte% 6.3 % (0-10); NRBC Flagged by Analyzer 0 % (0-5); Neutrophil # 8.12 X10^3/uL (2.7-7.7); Platelet Count 167 K/mm3 (150-450); RBC Distribution Width CV 13.4 % (11.6-14.6); RBC Distribution Width SD 39.9 fl (35.1-43.9); Red Blood Count 4.95 M/mm3 (4.6-6.2); White Blood Count 9.8 K/mm3 (4.4-11.0)
[2024-01-27 00:40] LABS: Color, Urine Straw (Yellow); Glucose, Dipstick 1000 mg/dl (Normal); Ketone-Dipstick Negative (Negative); Leukocyte Esterase-Dipstick Negative /ul (Negative); Nitrite-Dipstick Negative (Negative); Occult Blood-Urine Negative /ul (Negative); Protein-Dipstick Negative (Negative); Specific Gravity, Urine 1.015 (1.002-1.030); Urine Bilirubin Dipstick Negative (Negative); Urine Clarity Clear (Clear); Urine Urobilinogen Normal (Normal)
[2024-01-27 00:43] VITALS: BP 91/54; PULSE 78; RESP 21; O2SAT 97
[2024-01-27 00:45] LABS: AST(SGOT) 16 U/L (15-37); Alanine Aminotransfer ALT/SGPT 24 U/L (16-61); Albumin, Serum 3.6 g/dL (3.2-5.0); Alkaline Phosphatase 71 U/L (45-117); Anion Gap 5 (5-15); BUN 14 mg/dL (7-18); BUN/Creat Ratio 12.5 RATIO (10-20); Calcium,Total 9.3 mg/dL (8.5-10.1); Chloride 100 mmol/L (98-107); Creatinine, Serum 1.12 mg/dL (0.70-1.30); EST Glomerular Filtration Rate 70 mL/min (>60); Est Glom Filt Rate - Afr Amer 85 mL/min (>60); Estimated Creatinine Clearance 85.08 ml/min; Globulin 3.2 g/dL (2.2-4.2); Glucose 553 mg/dL (74-106); Potassium 4.2 mmol/L (3.5-5.1); Protein, Total 6.8 g/dL (6.4-8.2); Sodium Level 135 mmol/L (136-145)
[2024-01-27] MEDS: 0.9% Normal Saline (1000mL) 1,000 ML 1000 ML IV (00:45)
[2024-01-27] MEDS: Acetaminophen 500 MG Tablet 1000 MG PO (00:46)
[2024-01-27 00:50] LABS: Amorphous Sediment 0 SEEN; Calcium Oxalate Crystals Ur 0 SEEN /hpf (<or=2+); Coarse Granular Cast 0 SEEN /lpf (0-5 /lpf); Fine Granular Cast- Urine 0 SEEN /lpf (0-5); Hyaline Cast 0 SEEN /lpf (0-5); Other Crystals-Urine 0 SEEN /hpf (None Seen); Red Cell Cast 0 SEEN /lpf (None Seen); Squamous Epithelial Cells - UA 5-10 SEEN /hpf (0-5); Trichomonas 0 SEEN /hpf (None Seen); Triple Phosphate Crystals Ur 0 SEEN /hpf (<or=1+); Uric Acid Crystals Ur 0 SEEN /hpf (<or=1+); Waxy Cast-Urine 0 SEEN /lpf (None Seen); White Cell Cast 0 SEEN /lpf (None Seen); Yeast-Urine RARE /hpf (None Seen)
[2024-01-27 02:27] LABS: Bedside Glucose 464 mg/dL (74-106)
[2024-01-27] MEDS: Insulin Lispro 100 UNIT/ML INSULN.PEN 10 UNIT SC (02:34)
[2024-01-27] MEDS: 0.9% Normal Saline (1000mL) 1,000 ML 200 ML IV ×2 (02:35→04:27)
[2024-01-27 02:43] VITALS: BP 114/77; PULSE 70; RESP 18; O2SAT 97
[2024-01-27 04:00] VITALS: BP 102/66; PULSE 65; RESP 19; O2SAT 97
[2024-01-27 04:18] LABS: Bedside Glucose 378 mg/dL (74-106)
[2024-01-27] MEDS: Insulin Lispro 100 UNIT/ML INSULN.PEN 8 UNIT SC (04:23)
[2024-01-27 05:45] LABS: Bedside Glucose 277 mg/dL (74-106)
[2024-01-27 06:00] VITALS: PULSE 66
[2024-01-27 06:12] VITALS: BP 100/60; PULSE 66; RESP 18; TEMP 36.6; O2SAT 98
--- NOTE | 2024-01-27 23:49 | CT_ITS ---
INDICATION: fall, on anticoagulation EXAMINATION: CT BRAIN - CT Head or Brain W/O Contrast Injection TECHNIQUE: Multiple axial images were obtained of the head without intravenous contrast. A radiation dose optimization technique was used for this scan. IV Contrast dosage and agent: None. RADIATION DOSAGE (If Supplied By Facility): CTDIvol = ( 44.99 ) mGy, DLP = ( 880.47 ) mGycm COMPARISON: CT head 10/30/2022 FINDINGS: BRAIN: No acute bleed. No edema. Amado-white matter differentiation is maintained. VENTRICLES AND SULCI: Not dilated. EXTRA-AXIAL: No hemorrhage, fluid collection, or mass. CALVARIUM / SKULL BASE: Unremarkable. FACE/SINUSES: Minimal mucosal thickening in the maxillary and sphenoid sinuses. SOFT TISSUES: Unremarkable. CT/Brain/Head without Contrast IMPRESSION: No acute abnormality. Electronically Signed: Lizette Grimaldo MD at 0:55 EDT ,
== END 2024-01-27 06:14 | disposition home or self-care (01) ==
PROVIDERS: Emergency Provider Emergency Medicine; PCP Family Medicine; Visit Provider Emergency Medicine
DX: R53.1 Weakness (principal); J44.9 Chronic obstructive pulmonary disease, unspecified; E11.65 Type 2 diabetes mellitus with hyperglycemia; I25.2 Old myocardial infarction; G47.30 Sleep apnea, unspecified; Z79.01 Long term (current) use of anticoagulants; Z95.5 Presence of coronary angioplasty implant and graft
CPT/HCPCS: 70450; 71046; 80048; 80076; 81001; 82009; 82962; 85025; 87631; 93005; 96360; 99285; J7030; A4216

== ENCOUNTER 2024-02-07 19:15 | Emergency (ER) | payer MEDICAID, SELFPAY ==
[2024-02-07 19:16] VITALS: BP 110/79; PULSE 77; RESP 16; TEMP 35.8; O2SAT 93; BMI 26.7
[2024-02-07 20:57] LABS: Bedside Glucose 437 mg/dL (74-106)
--- NOTE | 2024-02-07 21:09 | EDS_ITS ---
HPI History of Present Illness Chief Complaint: Weakness Narrative Narrative: 63-year-old male presenting with chief complaint of I feel like shit. He states I feel weak. States started a couple of hours ago. He reports that he was concerned his blood sugar was high. Patient states that he feels thirsty. He states has been peeing a lot. Patient also reports that he has been drinking sweet tea all afternoon. Patient denies to shortness of breath. He denies fever, chills. He denies nausea or vomiting. Denies diarrhea or constipation. 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 Restless legs Sleep apnea Home Medications metformin 500 mg tablet,extended release 24 hr 500 mg PO BID diabetes 05/02/19 [History Last Taken 03/18/22] fluconazole 200 mg tablet (Diflucan) 200 mg PO DAILY antibiotic 03/19/22 [History Last Taken 03/18/22] glipizide 5 mg tablet 5 mg PO BID diabetes 03/19/22 [History Last Taken 03/18/22] insulin glargine 100 unit/mL (3 mL) subcutaneous pen (Lantus Solostar U-100 Insulin) 10 unit subcut BID diabetes 03/19/22 [History Last Taken 03/18/22] ondansetron 4 mg disintegrating tablet 4 mg PO Q8H PRN nausea and vomiting #10 tabs 04/26/22 [Rx Last Taken Unknown] dicyclomine 20 mg tablet 20 mg PO TID PRN abdominal cramping #20 tabs 08/07/22 [Rx Last Taken Unknown] diphenoxylate-atropine 2.5 mg-0.025 mg tablet (Lomotil) 1 tab PO 4X/DAY PRN PRN diarrhea 5 days #20 tabs 10/30/22 [Rx Last Taken Unknown] cyclobenzaprine 10 mg tablet 10 mg PO TID PRN Muscle Spasm #20 TABLETS 08/26/23 [Rx Last Taken Unknown] hydrocortisone 1 % topical cream 1 applic topical TID PRN skin irritation #28.4 grams 08/26/23 [Rx Last Taken Unknown] ibuprofen 600 mg tablet 600 mg PO Q8H PRN PRN pain #20 TABLETS 08/26/23 [Rx Last Taken Unknown] ciprofloxacin HCl 500 mg tablet (Cipro) 500 mg PO BID #20 tabs 09/29/23 [Rx Last Taken Unknown] insulin glargine 100 unit/mL subcutaneous solution (Lantus U-100 Insulin) 1 unit subcut QPM 09/29/23 [History Last Taken Unknown] levothyroxine 100 mcg tablet 100 mcg PO DAILY 09/29/23 [History Last Taken Unknown] metronidazole 500 mg tablet 500 mg PO BID 10 days #20 tabs 09/29/23 [Rx Last Taken Unknown] magnesium citrate (Citrate of Magnesia oral) 300 ml PO DAILY PRN constipation #296 mL 12/08/23 [Rx Last Taken Unknown] meclizine 25 mg tablet 25 mg PO TID #30 tabs 12/08/23 [Rx Last Taken Unknown] ondansetron 4 mg disintegrating tablet 4 mg PO Q8H PRN PRN Nausea #10 tabs 12/25/23 [Rx Last Taken Unknown] Allergy/AdvReac Type Severity Reaction Status Date / Time diphenhydramine HCl Allergy Rash Verified 02/07/24 19:15 [From Benadryl] Penicillins Allergy Rash Verified 02/07/24 19:15 venom-honey bee Allergy Swelling Verified 02/07/24 19:15 [bee venom (honey bee)] Surgical History History of coronary artery stent placement Hx of inguinal herniorrhaphy Hx of left knee surgery Social History household members: none Smoking Status: Never smoker substance use type: does not use ROS ROS ED ROS Narrative Generalized weakness Constitutional Constitutional ED: Denies chills, fever(s) or sweats Eyes Eyes: Denies blurry vision or change in vision ENT ENT ED: Denies ear pain or sore throat Cardiovascular Cardiovascular: Denies chest pain, palpitations or racing heartbeat Respiratory/Chest Respiratory/Chest: Denies cough, dyspnea or sputum Gastrointestinal Gastrointestinal: Denies abdominal pain, constipation, diarrhea, nausea or vomiting Genitourinary Genitourinary ED: Denies dysuria, hematuria or urinary frequency Musculoskeletal Musculoskeletal: Denies arthralgias, myalgias or neck pain Integumentary Denies abscess, Abrasions or rash Neurologic Neurologic: Denies headache(s), paresthesias or weakness Psychiatric Psychiatric: Denies anxiety, depression, suicidal ideation or suicidal thoughts Endocrine Endocrinology: Reports polydipsia and polyuria EXAM Physical Exam Const Vital Signs: 02/07/24 19:16 02/07/24 20:31 02/07/24 22:53 Temperature 96.4 F L Temperature Source Temporal Pulse Rate 77 79 Respiratory Rate 16 18 Respiratory Effort Normal Respiratory Pattern Normal Blood Pressure 110/79 148/94 H Blood Pressure Mean 89 112 Pulse Ox 93 92 Oxygen Delivery Method Room Air Positive well nourished General Appearance ED: NAD; Negative for pallor HEENT Reports moist mucous membranes Eyes PERRL and EOMs intact bilaterally Chest Wall inspection of chest normal Resp normal respiratory effort and clear to auscultation bilaterally Auscultation: Negative for rales, rhonchi or wheezes Cardio regular rate and regular rhythm GI normal to inspection, nondistended, normoactive bowel sounds Neuro oriented x3 and CN's II-XII intact bilaterally Sensorium / Orientation: alert Motor Exam: strength 5/5 throughout Psych mental status grossly normal Skin no rashes or lesions noted General Skin Exam: Negative for jaundice or pallor MDM MDM MDM Narrative Medical decision making narrative: 62-year-old male presenting with generalized weakness. He states he feels like his blood sugar is high and has been drinking sweet tea this afternoon. Blood sugar checked on arrival and is over 400. Patient's vital signs are stable and he is afebrile. Will check a BMP to assess renal function, glucose, anion gap. CBC to assess hemoglobin hematocrit. Patient will be given IV fluids. Will obtain a urinalysis, EtOH due to EtOH history and drug abuse screen. Patient's blood sugar came down to the 300s. It looks like the patient's blood sugar is always in the 300s to 400s. CBC and BMP unremarkable. Urinalysis negative for infection but shows 1000 glucose. EtOH negative. He was counseled to discontinue drinking sweet tea since he is a diabetic. I suspect he has been drinking this week he is since he has been here because it is in the room with him. I recommend he take his medications as prescribed. He is discharged stable condition. Impression: 1. Hyperglycemia 2. Medical noncompliance Lab Data Attestation: I reviewed the patient's lab results. Labs: Laboratory Results - last 24 hr 02/07/24 02/07/24 02/07/24 20:23 20:33 20:39 WBC 9.9 RBC 5.37 Hgb 15.4 Hct 44.1 MCV 82.1 MCH 28.7 MCHC 34.9 RDW Std Deviation 40.1 RDW Coeff of Manjinder 13.6 Plt Count 255 MPV 9.6 Immature Gran % (Auto) 0.400 Neut % (Auto) 73.2 H Lymph % (Auto) 17.4 L [place] % (Auto) 5.4 Eos % (Auto) 3.1 Baso % (Auto) 0.5 Absolute Neuts (auto) 7.2 Absolute Lymphs (auto) 1.71 Nucleated RBC % 0 Sodium 134 L Potassium 3.9 Chloride 98 Carbon Dioxide 30.0 Anion Gap 6 BUN 19 H Creatinine 1.09 Estim Creat Clear Calc 87.42 Est GFR (MDRD) Af Amer 88 Est GFR (MDRD) Non-Af 72 BUN/Creatinine Ratio 17.4 Glucose 461 H* Calcium 10.2 H Total Bilirubin 0.60 AST 12 L ALT 20 Alkaline Phosphatase 105 Total Protein 7.5 Albumin 3.9 Globulin 3.6 Albumin/Globulin Ratio 1.1 Urine Color Yellow Urine Clarity Clear Urine pH 6.0 Ur Specific [place] 1.015 Urine Protein 15 H Urine Glucose (UA) 1000 H Urine Ketones Negative Urine Occult Blood Negative Urine Nitrite Negative Urine Bilirubin Negative Urine Urobilinogen Normal Ur Leukocyte Esterase Negative Urine RBC 0 SEEN Urine WBC 0 SEEN Ur Squamous Epith Cells 0 SEEN Urine Bacteria 0 SEEN Urine Mucus 0 SEEN Ur Drug Screen Comment Ethyl Alcohol POC Glucose 437 H 02/07/24 02/07/24 21:20 23:51 WBC RBC Hgb Hct MCV MCH MCHC RDW Std Deviation RDW Coeff of Manjinder Plt Count MPV Immature Gran % (Auto) Neut % (Auto) Lymph % (Auto) [place] % (Auto) Eos % (Auto) Baso % (Auto) Absolute Neuts (auto) Absolute Lymphs (auto) Nucleated RBC % Sodium Potassium Chloride Carbon Dioxide Anion Gap BUN Creatinine Estim Creat Clear Calc Est GFR (MDRD) Af Amer Est GFR (MDRD) Non-Af BUN/Creatinine Ratio Glucose Calcium Total Bilirubin AST ALT Alkaline Phosphatase Total Protein Albumin Globulin Albumin/Globulin Ratio Urine Color Urine Clarity Urine pH Ur Specific [place] Urine Protein Urine Glucose (UA) Urine Ketones Urine Occult Blood Urine Nitrite Urine Bilirubin Urine Urobilinogen Ur Leukocyte Esterase Urine RBC Urine WBC Ur Squamous Epith Cells Urine Bacteria Urine Mucus Ur Drug Screen Comment Ethyl Alcohol < 3.0 POC Glucose 379 H Discharge Plan Triage Chief Complaint: Weakness ED Provider: Keenan Wu Dx/Rx/DC Orders Prescriptions: No Action metformin 500 MG tablet 500 mg PO BID Patient Comments: diabetes insulin glargine [Lantus Solostar U-100 Insulin] 100 unit/mL (3 mL) Insulin Pen 10 unit SUBCUT BID fluconazole [Diflucan] 200 mg tablet 200 mg PO DAILY glipizide 5 mg tablet 5 mg PO BID Rx Instructions: Hold if glucose less than 130 mg/dl ondansetron 4 mg tablet,disintegrating 4 mg PO Q8H PRN (Reason: nausea and vomiting) Qty: 10 0RF dicyclomine 20 mg tablet 20 mg PO TID PRN (Reason: abdominal cramping) Qty: 20 0RF diphenoxylate-atropine [Lomotil] 2.5-0.025 mg tablet 1 tab PO 4X/DAY PRN PRN (Reason: diarrhea) 5 Days Qty: 20 0RF meclizine 25 mg tablet 25 mg PO TID Qty: 30 0RF magnesium citrate [Citrate of Magnesia] Solution 300 ml PO DAILY PRN (Reason: constipation) Qty: 296 0RF Rx Instructions: Drink one half bottle if no bowel movement within 4 hours drink the second half of the bottle ibuprofen 600 mg tablet 600 mg PO Q8H PRN PRN (Reason: pain) Qty: 20 0RF cyclobenzaprine 10 mg tablet 10 mg PO TID PRN (Reason: Muscle Spasm) Qty: 20 0RF hydrocortisone 1 % cream 1 applic topical TID PRN (Reason: skin irritation) Qty: 28.4 0RF levothyroxine 100 mcg tablet 100 mcg PO DAILY Patient Comments: Take 1 tab by mouth once daily on an empty stomach insulin glargine [Lantus U-100 Insulin] 100 unit/mL solution 1 unit subcut QPM ciprofloxacin HCl [Cipro] 500 mg tablet 500 mg PO BID Qty: 20 0RF metronidazole 500 mg tablet 500 mg PO BID 10 Days Qty: 20 0RF ondansetron 4 mg tablet,disintegrating 4 mg PO Q8H PRN PRN (Reason: Nausea) Qty: 10 0RF Primary Care Provider: Linden Chavez Referrals: Linden Chavez DO [Primary Care Provider] -
[2024-02-07] MEDS: 0.9% Normal Saline (1000mL) 1,000 ML 999 ML IV (21:17)
[2024-02-07 21:26] LABS: Bacteria 0 SEEN /hpf (None Seen); Mucous, Urine 0 SEEN /hpf (<or=2+); Red Blood Cells-Urine 0 SEEN /hpf (0-5); Squamous Epithelial Cells - UA 0 SEEN /hpf (0-5); White Blood Cells 0 SEEN /hpf (0-5)
[2024-02-07 21:28] LABS: Absolute Lymphocyte Count 1.71 X10^3/uL (0.83-4.51); Absolute Neutrophil Count 7.2 X10^3/uL (2.0-7.7); Basophil# 0.05 X10^3/uL; Basophil% 0.5 % (0-1); Eosinophil# 0.31 X10^3/uL; Eosinophils% 3.1 % (0-5); Hematocrit 44.1 % (40-54); Hemoglobin 15.4 g/dL (13.0-16.5); Lymphocyte # 1.71 X10^3/ul (0.83-4.51); Lymphocyte % 17.4 % (19-41); Mean Corp Hgb Conc 34.9 g/dL (32-36); Mean Corpuscular Hgb 28.7 pg (27.0-32.0); Mean Corpuscular Volume 82.1 fL (80-94); Mean Platelet Vol. 9.6 fl (6.2-12.0); Monocyte# 0.53 X10^3/uL; Monocyte% 5.4 % (0-10); NRBC Flagged by Analyzer 0 % (0-5); Neutrophil # 7.21 X10^3/uL (2.7-7.7); Neutrophil % 73.2 % (47-70); Platelet Count 255 K/mm3 (150-450); RBC Distribution Width CV 13.6 % (11.6-14.6); RBC Distribution Width SD 40.1 fl (35.1-43.9); Red Blood Count 5.37 M/mm3 (4.6-6.2); White Blood Count 9.9 K/mm3 (4.4-11.0)
[2024-02-07 21:31] LABS: Color, Urine Yellow (Yellow); Glucose, Dipstick 1000 mg/dl (Normal); Ketone-Dipstick Negative (Negative); Leukocyte Esterase-Dipstick Negative /ul (Negative); Nitrite-Dipstick Negative (Negative); Occult Blood-Urine Negative /ul (Negative); Protein-Dipstick 15 mg/dl (Negative); Specific Gravity, Urine 1.015 (1.002-1.030); Urine Bilirubin Dipstick Negative (Negative); Urine Clarity Clear (Clear); Urine Urobilinogen Normal (Normal)
[2024-02-07 21:39] LABS: Alcohol, Blood (Medical)-Serum < 3.0 mg/dL
[2024-02-07 21:54] LABS: ALB/GLOB Ratio 1.1 RATIO (0.9-2.4); AST(SGOT) 12 U/L (15-37); Alanine Aminotransfer ALT/SGPT 20 U/L (16-61); Albumin, Serum 3.9 g/dL (3.2-5.0); Alkaline Phosphatase 105 U/L (45-117); Anion Gap 6 (5-15); BUN 19 mg/dL (7-18); BUN/Creat Ratio 17.4 RATIO (10-20); Calcium,Total 10.2 mg/dL (8.5-10.1); Chloride 98 mmol/L (98-107); Creatinine, Serum 1.09 mg/dL (0.70-1.30); EST Glomerular Filtration Rate 72 mL/min (>60); Est Glom Filt Rate - Afr Amer 88 mL/min (>60); Estimated Creatinine Clearance 87.42 ml/min; Globulin 3.6 g/dL (2.2-4.2); Glucose 461 mg/dL (74-106); Potassium 3.9 mmol/L (3.5-5.1); Protein, Total 7.5 g/dL (6.4-8.2); Sodium Level 134 mmol/L (136-145)
[2024-02-07 22:53] VITALS: BP 148/94; PULSE 79; RESP 18; O2SAT 92
[2024-02-07] MEDS: Insulin Lispro 100 UNIT/ML INSULN.PEN 20 UNIT SC (23:21)
[2024-02-08] VITALS: BP 120/80; PULSE 67; RESP 18; O2SAT 96
[2024-02-08 00:08] LABS: Bedside Glucose 379 mg/dL (74-106)
[2024-02-08 00:47] VITALS: BP 114/67; PULSE 92; RESP 16; TEMP 36.9; O2SAT 95
[2024-02-08 03:32] LABS: Amphetamine Urine VISTA NEGATIVE (<1000 ng/mL); Barbiturate Urine VISTA NEGATIVE (< 200 ng/mL); Benzodiazepine Urine VISTA NEGATIVE (< 200 ng/mL); Cocaine Urine VISTA NEGATIVE (< 300 ng/mL); Ecstacy Urine VISTA NEGATIVE (< 500 ng/mL); Methadone Urine VISTA NEGATIVE (< 300 ng/mL); PCP Urine VISTA NEGATIVE (< 25 ng/mL); THC Urine VISTA NEGATIVE (< 50 ng/mL); Vista UDS pH Range 6
== END 2024-02-08 00:48 | disposition home or self-care (01) ==
PROVIDERS: Emergency Provider Student in an Organized Health Care Education/Training Program; PCP Family Medicine; Visit Provider Student in an Organized Health Care Education/Training Program
DX: E11.65 Type 2 diabetes mellitus with hyperglycemia (principal); J44.9 Chronic obstructive pulmonary disease, unspecified; I25.2 Old myocardial infarction; G47.30 Sleep apnea, unspecified; Z95.5 Presence of coronary angioplasty implant and graft; Z91.199 Patient's noncompliance with other medical treatment and regimen due to unspecified reason
CPT/HCPCS: 80053; 80307; 80320; 81001; 82962; 85025; 96360; 99285; J7030; A4216; G0480

== ENCOUNTER 2024-03-08 06:23 | Emergency (ER) | payer MEDICAID, SELFPAY ==
[2024-03-08 06:24] VITALS: BP 152/79; PULSE 76; RESP 18; TEMP 36.1; O2SAT 94; BMI 27.3
--- NOTE | 2024-03-08 06:47 | RAD_ITS ---
EXAM: XR ABDOMEN, 2 VIEWS AND XR CHEST, 1 VIEW CLINICAL INDICATION: abd pain abd pain TECHNIQUE: Frontal view of the chest, frontal view of the abdomen/pelvis and upright or decubitus view of the abdomen. COMPARISON: Chest x-ray 01/27/2024. FINDINGS: CHEST: LUNGS AND PLEURAL SPACES: There is mild chronic bilateral basilar atelectasis or fibrosis. There is no visualized acute pulmonary infiltrate. No pneumothorax. No effusion. HEART: Unremarkable. Cardiac silhouette not enlarged. MEDIASTINUM: Central airways and mediastinal contour are unremarkable. ABDOMEN: INTRAPERITONEAL SPACE: No free air. GASTROINTESTINAL TRACT: There is prominent bowel gas with a nonspecific pattern. Cannot exclude ileus. ORGANS: Unremarkable as visualized. No organomegaly. No abnormal calcifications. TUBES, LINES AND DEVICES: None. BONES/JOINTS: There are multilevel degenerative changes in the visualized spine. SOFT TISSUES: No acute findings. VASCULATURE: There is atherosclerotic calcification of the aortic arch. RAD/Acute Abdomen Inc Chest IMPRESSION: 1. Prominent bowel gas, possibly representing ileus. Mechanical obstruction is thought to be unlikely, however, if symptoms warrant, CT scan should be considered for further evaluation. 2. Mild chronic changes in the lung bases. No evidence for acute cardiopulmonary pathology. Electronically Signed: Alex Maza MD at 7:52 EDT ,
[2024-03-08] MEDS: 0.9% Normal Saline (1000mL) 1,000 ML 999 ML IV ×2 (06:54→07:54)
[2024-03-08] MEDS: Ketorolac 15 MG/ML Vial IV (06:54)
[2024-03-08 06:58] LABS: Absolute Lymphocyte Count 1.65 X10^3/uL (0.83-4.51); Absolute Neutrophil Count 4.8 X10^3/uL (2.0-7.7); Basophil# 0.04 X10^3/uL; Basophil% 0.6 % (0-1); Eosinophil# 0.28 X10^3/uL; Eosinophils% 3.9 % (0-5); Hematocrit 42.9 % (40-54); Hemoglobin 14.8 g/dL (13.0-16.5); Lymphocyte # 1.65 X10^3/ul (0.83-4.51); Lymphocyte % 22.8 % (19-41); Mean Corp Hgb Conc 34.5 g/dL (32-36); Mean Corpuscular Hgb 28.4 pg (27.0-32.0); Mean Corpuscular Volume 82.2 fL (80-94); Mean Platelet Vol. 9.6 fl (6.2-12.0); Monocyte% 6.9 % (0-10); NRBC Flagged by Analyzer 0 % (0-5); Neutrophil # 4.75 X10^3/uL (2.7-7.7); Neutrophil % 65.4 % (47-70); Platelet Count 194 K/mm3 (150-450); RBC Distribution Width CV 13.3 % (11.6-14.6); RBC Distribution Width SD 39.7 fl (35.1-43.9); Red Blood Count 5.22 M/mm3 (4.6-6.2); White Blood Count 7.3 K/mm3 (4.4-11.0)
[2024-03-08 07:31] LABS: AST(SGOT) 12 U/L (15-37); Alanine Aminotransfer ALT/SGPT 22 U/L (16-61); Albumin, Serum 3.7 g/dL (3.2-5.0); Alkaline Phosphatase 84 U/L (45-117); Anion Gap 6 (5-15); BUN 16 mg/dL (7-18); BUN/Creat Ratio 16.7 RATIO (10-20); Bilirubin, Direct 0.19 mg/dL (0.00-0.30); Calcium,Total 9.5 mg/dL (8.5-10.1); Chloride 97 mmol/L (98-107); Creatinine, Serum 0.96 mg/dL (0.70-1.30); EST Glomerular Filtration Rate 84 mL/min (>60); Est Glom Filt Rate - Afr Amer 102 mL/min (>60); Estimated Creatinine Clearance 99.26 ml/min; Globulin 3.5 g/dL (2.2-4.2); Glucose 520 mg/dL (74-106); Lipase 17 U/L (13-75); Protein, Total 7.2 g/dL (6.4-8.2); Sodium Level 134 mmol/L (136-145)
[2024-03-08 07:55] VITALS: BP 151/81; PULSE 83; RESP 14; O2SAT 97
--- NOTE | 2024-03-08 07:55 | CT_ITS ---
STUDY: CT ABDOMEN AND PELVIS WITH CONTRAST REASON FOR EXAM: Male, 63 years old. Abd normal xray / ? SBO. Prior inguinal hernia repair. RADIATION DOSAGE (If Supplied By Facility): CTDIvol = ( 13.02 ) mGy, DLP = ( 1048.69 ) mGycm TECHNIQUE: Transaxial images were obtained from the dome of the diaphragm to the symphysis pubis without oral contrast. IV 100mL Isovue-300 was administered. Sagittal and coronal images were reconstructed. Individualized dose optimization techniques were used for this CT. COMPARISON: Comparison is made with prior radiograph done earlier in the day as well as prior CT scan of the abdomen and pelvis dated September 29, 2023. FINDINGS: Stable increased markings at the right lung base suggestive of scarring. Coronary artery calcification. There is decreased attenuation of the liver consistent with steatosis. Normal gallbladder and extrahepatic biliary system. Normal spleen. Normal pancreas. Normal bilateral adrenal glands. Normal right kidney. Normal left kidney. Large amount of residual fluid fluid particles seen within the stomach. Normal small intestine. Large amount of fecal material is seen throughout the colon. There is thickening of the appendix measuring 13.2 mm. No surrounding inflammatory changes are seen. Clinical correlation is recommended. There is scattered atherosclerotic calcification of the abdominal aorta, without a demonstrated aneurysm. Normal inferior vena cava. Normal retroperitoneum. Distended urinary bladder. Normal abdominal wall. Small benign-appearing bilateral inguinal lymph nodes. The and subchondral sclerosis at the L4-L5 and L5-S1 levels. Straightening of the normal lumbar lordosis. CT/Abdomen/Pelvis W IV Cont ONLY IMPRESSION: Large amount of fecal material is seen throughout the colon. Large amount of residual food particles present in the stomach. There is thickening of the appendix with a transverse dimension of 13.2 mm. No surrounding inflammatory changes are seen. N.B. : The above Results were Read Back by Brent Gray MD to Johann Lemons DO, and understanding confirmed on 03/08/2024 08:55:51 (ET). Electronically Signed: Brent Gray MD at 8:57 EDT ,
--- NOTE | 2024-03-08 08:04 | EX.ED.DYSGE1 ---
HPI History of Present Illness Chief Complaint: Abd Pain Informant: patient Narrative Narrative: Patient is a 63-year-old male with past medical history of hypertension hyperlipidemia hypothyroidism and insulin-dependent diabetes. He states for 2 days he had 3-4 episodes of loose stool/diarrhea. He reports there was no associated nausea or vomiting and he denies any recent sick contacts or travel outside the country or antibiotic use. He states he took Pepto-Bismol and Imodium A-D and this helped stop the diarrhea. However today he felt he had to have a bowel movement and could not do so and therefore comes to the hospital for evaluation. 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 Restless legs Sleep apnea Home Medications metformin 500 mg tablet,extended release 24 hr 500 mg PO BID diabetes 05/02/19 [History Last Taken 03/18/22] fluconazole 200 mg tablet (Diflucan) 200 mg PO DAILY antibiotic 03/19/22 [History Last Taken 03/18/22] glipizide 5 mg tablet 5 mg PO BID diabetes 03/19/22 [History Last Taken 03/18/22] insulin glargine 100 unit/mL (3 mL) subcutaneous pen (Lantus Solostar U-100 Insulin) 10 unit subcut BID diabetes 03/19/22 [History Last Taken 03/18/22] ondansetron 4 mg disintegrating tablet 4 mg PO Q8H PRN nausea and vomiting #10 tabs 04/26/22 [Rx Last Taken Unknown] dicyclomine 20 mg tablet 20 mg PO TID PRN abdominal cramping #20 tabs 08/07/22 [Rx Last Taken Unknown] diphenoxylate-atropine 2.5 mg-0.025 mg tablet (Lomotil) 1 tab PO 4X/DAY PRN PRN diarrhea 5 days #20 tabs 10/30/22 [Rx Last Taken Unknown] cyclobenzaprine 10 mg tablet 10 mg PO TID PRN Muscle Spasm #20 TABLETS 08/26/23 [Rx Last Taken Unknown] hydrocortisone 1 % topical cream 1 applic topical TID PRN skin irritation #28.4 grams 08/26/23 [Rx Last Taken Unknown] ibuprofen 600 mg tablet 600 mg PO Q8H PRN PRN pain #20 TABLETS 08/26/23 [Rx Last Taken Unknown] ciprofloxacin HCl 500 mg tablet (Cipro) 500 mg PO BID #20 tabs 09/29/23 [Rx Last Taken Unknown] insulin glargine 100 unit/mL subcutaneous solution (Lantus U-100 Insulin) 1 unit subcut QPM 09/29/23 [History Last Taken Unknown] levothyroxine 100 mcg tablet 100 mcg PO DAILY 09/29/23 [History Last Taken Unknown] metronidazole 500 mg tablet 500 mg PO BID 10 days #20 tabs 09/29/23 [Rx Last Taken Unknown] magnesium citrate (Citrate of Magnesia oral) 300 ml PO DAILY PRN constipation #296 mL 12/08/23 [Rx Last Taken Unknown] meclizine 25 mg tablet 25 mg PO TID #30 tabs 12/08/23 [Rx Last Taken Unknown] polyethylene glycol 3350 17 gram/dose oral powder (Miralax) 17 g PO DAILY #510 grams 03/08/24 [Rx Last Taken Unknown] Allergy/AdvReac Type Severity Reaction Status Date / Time diphenhydramine HCl Allergy Rash Verified 03/08/24 06:23 [From Benadryl] Penicillins Allergy Rash Verified 03/08/24 06:23 venom-honey bee Allergy Swelling Verified 03/08/24 06:23 [bee venom (honey bee)] Surgical History History of coronary artery stent placement Hx of inguinal herniorrhaphy Hx of left knee surgery Social History household members: none Smoking Status: Never smoker substance use type: does not use ROS ROS ED Constitutional Constitutional ED: Denies chills or fever(s) ENT ENT ED: Denies sore throat Cardiovascular Cardiovascular: Denies chest pain Respiratory/Chest Respiratory/Chest: Denies cough or dyspnea Gastrointestinal Gastrointestinal: Reports abdominal pain and constipation; Denies diarrhea, nausea or vomiting Genitourinary Genitourinary ED: Denies dysuria Musculoskeletal Musculoskeletal: Denies myalgias Integumentary Denies rash Neurologic Neurologic: Denies headache(s) Hematologic/Lymphatic Hematologic/Lymphatic: Denies easy bleeding or easy bruising EXAM Physical Exam Const Vital Signs: 03/08/24 06:24 03/08/24 07:55 Temperature 97 F L Temperature Source Temporal Pulse Rate 76 83 Respiratory Rate 18 14 Blood Pressure 152/79 H 151/81 H Blood Pressure Mean 103 104 Pulse Ox 94 97 Oxygen Delivery Method Room Air Room Air Positive well nourished, well developed and obese General Appearance ED: well developed; Negative for pallor Nutritional Appearance: obese HEENT Reports dry mucous membranes HEENT Narrative: Mucous membranes are dry and tacky No tongue or lip swelling no oral lesions no airway edema or compromise No secondary changes in the posterior pharynx to suggest infection Mouth ED: Yes dry mucous membranes Mouth: dry mucous membranes Eyes PERRL and EOMs intact bilaterally General Eye ED: Negative for scleral icterus Neck supple Neck Narrative: No nuchal rigidity or meningeal signs Resp normal respiratory effort and clear to auscultation bilaterally Cardio regular rate and regular rhythm GI non-tender and no masses GI Narrative: Abdomen is soft with slight distention and hypoactive bowel sounds. There is no pain with palpation. No voluntary guarding or rigidity. Slight increased tympany in the midepigastric region. Auscultation: hypoactive bowel sounds Palpation: soft Extremity normal to inspection Neuro oriented x3, CN's II-XII intact bilaterally and no sensory deficits noted Sensorium / Orientation: alert Motor Exam: strength 5/5 throughout Psych mental status grossly normal Skin no rashes or lesions noted and No skin turgor normal Skin Narrative: Skin turgor is increased General Skin Exam: Negative for jaundice or pallor MDM MDM MDM Narrative Medical decision making narrative: Patient presented to the ER with stable vitals and a soft nonsurgical abdomen. He reported 2 days of diarrhea which he controlled with Imodium A-D and Pepto-Bismol. However today he is describing more constipation. Differential diagnosis is for medication induced constipation versus dehydration versus obstruction. Blood work revealed hyperglycemia but no changes to suggest diabetic ketoacidosis as his anion gap and serum bicarbonate are normal. His serum osmolality level is also technically normal at a value of 315. The patient's x-ray question ileus versus developing obstruction and as he does have constipation and concern for potential obstruction a CT scan of the abdomen pelvis was added. At this time he is receiving 2 L of fluid secondary to the hyperglycemia. As he is normally hyperglycemic based on chart review and not in DKA or HHS I do not feel he needs admitted based on this value. His CT scan showed constipation without obstructive or perforation or infectious process and therefore he is otherwise safe for discharge. History & Record Review Discussion w/independent historian: Patient Lab Data Attestation: I reviewed the patient's lab results. Labs: Laboratory Results - last 24 hr 03/08/24 06:45 WBC 7.3 RBC 5.22 Hgb 14.8 Hct 42.9 MCV 82.2 MCH 28.4 MCHC 34.5 RDW Std Deviation 39.7 RDW Coeff of Manjinder 13.3 Plt Count 194 MPV 9.6 Immature Gran % (Auto) 0.400 Neut % (Auto) 65.4 Lymph % (Auto) 22.8 Payne % (Auto) 6.9 Eos % (Auto) 3.9 Baso % (Auto) 0.6 Absolute Neuts (auto) 4.8 Absolute Lymphs (auto) 1.65 Nucleated RBC % 0 Sodium 134 L Potassium 4.0 Chloride 97 L Carbon Dioxide 31.0 Anion Gap 6 BUN 16 Creatinine 0.96 Estim Creat Clear Calc 99.26 Est GFR (MDRD) Af Amer 102 Est GFR (MDRD) Non-Af 84 BUN/Creatinine Ratio 16.7 Glucose 520 H* Calcium 9.5 Total Bilirubin 0.60 Direct Bilirubin 0.19 AST 12 L ALT 22 Alkaline Phosphatase 84 Total Protein 7.2 Albumin 3.7 Globulin 3.5 Lipase 17 Radiography Diagnostic Testing: Clinical Impression(s) from Imaging Studies Acute Abdomen Series 03/08/24 06:47 IMPRESSION: 1. Prominent bowel gas, possibly representing ileus. Mechanical obstruction is thought to be unlikely, however, if symptoms warrant, CT scan should be considered for further evaluation. 2. Mild chronic changes in the lung bases. No evidence for acute cardiopulmonary pathology. Electronically Signed: Alex Maza MD at 7:52 EDT , Acute abdominal series with 1 view chest as interpreted by the emergency medicine physician reveals prominent gas pattern/intestinal distention in the mid abdomen concerning for ileus versus obstruction. Chest x-ray component reveals no acute infiltrate or pneumothorax or pleural effusion. Discharge Plan Triage Chief Complaint: Abd Pain ED Provider: Johann Lemons Dx/Rx/DC Orders Clinical Impression: Insulin dependent diabetes mellitus, Hyperglycemia, Dehydration, Constipation Instructions: ED Constipation (Adult), ED Diabetic Hyperglycemia Prescriptions: New polyethylene glycol 3350 [Miralax] 17 gram/dose powder 17 g PO DAILY Qty: 510 1RF No Action metformin 500 MG tablet 500 mg PO BID Patient Comments: diabetes insulin glargine [Lantus Solostar U-100 Insulin] 100 unit/mL (3 mL) Insulin Pen 10 unit SUBCUT BID fluconazole [Diflucan] 200 mg tablet 200 mg PO DAILY glipizide 5 mg tablet 5 mg PO BID Rx Instructions: Hold if glucose less than 130 mg/dl ondansetron 4 mg tablet,disintegrating 4 mg PO Q8H PRN (Reason: nausea and vomiting) Qty: 10 0RF dicyclomine 20 mg tablet 20 mg PO TID PRN (Reason: abdominal cramping) Qty: 20 0RF diphenoxylate-atropine [Lomotil] 2.5-0.025 mg tablet 1 tab PO 4X/DAY PRN PRN (Reason: diarrhea) 5 Days Qty: 20 0RF meclizine 25 mg tablet 25 mg PO TID Qty: 30 0RF magnesium citrate [Citrate of Magnesia] Solution 300 ml PO DAILY PRN (Reason: constipation) Qty: 296 0RF Rx Instructions: Drink one half bottle if no bowel movement within 4 hours drink the second half of the bottle ibuprofen 600 mg tablet 600 mg PO Q8H PRN PRN (Reason: pain) Qty: 20 0RF cyclobenzaprine 10 mg tablet 10 mg PO TID PRN (Reason: Muscle Spasm) Qty: 20 0RF hydrocortisone 1 % cream 1 applic topical TID PRN (Reason: skin irritation) Qty: 28.4 0RF levothyroxine 100 mcg tablet 100 mcg PO DAILY Patient Comments: Take 1 tab by mouth once daily on an empty stomach insulin glargine [Lantus U-100 Insulin] 100 unit/mL solution 1 unit subcut QPM ciprofloxacin HCl [Cipro] 500 mg tablet 500 mg PO BID Qty: 20 0RF metronidazole 500 mg tablet 500 mg PO BID 10 Days Qty: 20 0RF Primary Care Provider: Linden Chavez Referrals: Linden Chavez, DO [Primary Care Provider] - Activity Restrictions/Additional Instructions: Your CT scan showed no sign of bowel blockage. It did show changes consistent with constipation . Take MiraLAX as directed every day to prevent these recurrent issues . please keep yourself well-hydrated and continue to take your diabetic medication as directed. Return to the ER should you have any further concerns. Disposition Disposition: Home, Self Care
[2024-03-08 10:04] VITALS: BP 142/87; PULSE 79; RESP 17; TEMP 36.9; O2SAT 96
== END 2024-03-08 10:04 | disposition home or self-care (01) ==
PROVIDERS: Emergency Provider Emergency Medicine; PCP Family Medicine; Visit Provider Emergency Medicine
DX: E11.65 Type 2 diabetes mellitus with hyperglycemia (principal); J44.9 Chronic obstructive pulmonary disease, unspecified; Z79.4 Long term (current) use of insulin; E86.0 Dehydration; K59.00 Constipation, unspecified; I10 Essential (primary) hypertension; E78.5 Hyperlipidemia, unspecified; E03.9 Hypothyroidism, unspecified; E66.9 Obesity, unspecified
CPT/HCPCS: 74022; 74177; 80048; 80076; 83690; 85025; 96374; 99282; J7030; Q9967; A4216

== ENCOUNTER 2024-03-09 01:35 | Emergency (ER) | payer MEDICAID, SELFPAY ==
[2024-03-09 01:35] VITALS: BP 139/76; PULSE 77; RESP 18; TEMP 36.3; O2SAT 97; BMI 26.1
--- NOTE | 2024-03-09 02:20 | EDS_ITS ---
HPI History of Present Illness Chief Complaint: Constipation Informant: patient Narrative Narrative: Patient is a 63-year-old male with past medical history of diabetes hypertension and hypothyroidism. He was seen approximately 12 hours ago secondary to abdominal pain/constipation. At that time he had basic blood work as well as a acute abdominal x-ray and even CT scan which revealed chronic constipation without infection or obstruction. 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 Restless legs Sleep apnea Home Medications ?Medication ?Instructions ?Recorded ?Last Taken ?Type metformin 500 mg tablet,extended 500 mg PO BID diabetes 05/02/19 03/18/22 History release 24 hr fluconazole 200 mg tablet 200 mg PO DAILY antibiotic 03/19/22 03/18/22 History (Diflucan) glipizide 5 mg tablet 5 mg PO BID diabetes 03/19/22 03/18/22 History insulin glargine 100 unit/mL (3 10 unit subcut BID diabetes 03/19/22 03/18/22 History mL) subcutaneous pen (Lantus Solostar U-100 Insulin) ondansetron 4 mg disintegrating 4 mg PO Q8H PRN nausea and 04/26/22 Unknown Rx tablet vomiting #10 tabs dicyclomine 20 mg tablet 20 mg PO TID PRN abdominal 08/07/22 Unknown Rx cramping #20 tabs diphenoxylate-atropine 2.5 1 tab PO 4X/DAY PRN PRN diarrhea 5 10/30/22 Unknown Rx mg-0.025 mg tablet (Lomotil) days #20 tabs cyclobenzaprine 10 mg tablet 10 mg PO TID PRN Muscle Spasm #20 08/26/23 Unknown Rx TABLETS hydrocortisone 1 % topical cream 1 applic topical TID PRN skin 08/26/23 Unknown Rx irritation #28.4 grams ibuprofen 600 mg tablet 600 mg PO Q8H PRN PRN pain #20 08/26/23 Unknown Rx TABLETS ciprofloxacin HCl 500 mg tablet 500 mg PO BID #20 tabs 09/29/23 Unknown Rx (Cipro) insulin glargine 100 unit/mL 1 unit subcut QPM 09/29/23 Unknown History subcutaneous solution (Lantus U-100 Insulin) levothyroxine 100 mcg tablet 100 mcg PO DAILY 09/29/23 Unknown History metronidazole 500 mg tablet 500 mg PO BID 10 days #20 tabs 09/29/23 Unknown Rx magnesium citrate (Citrate of 300 ml PO DAILY PRN constipation 12/08/23 Unknown Rx Magnesia oral) #296 mL meclizine 25 mg tablet 25 mg PO TID #30 tabs 12/08/23 Unknown Rx polyethylene glycol 3350 17 17 g PO DAILY #510 grams 03/08/24 Unknown Rx gram/dose oral powder (Miralax) Allergy/AdvReac Type Severity Reaction Status Date / Time diphenhydramine HCl (From Allergy Rash Verified 03/08/24 06:23 Benadryl) Penicillins Allergy Rash Verified 03/08/24 06:23 venom-honey bee (bee venom Allergy Swelling Verified 03/08/24 06:23 (honey bee)) Surgical History History of coronary artery stent placement Hx of inguinal herniorrhaphy Hx of left knee surgery Social History household members: none Smoking Status: Never smoker substance use type: does not use ROS ROS ED Constitutional Constitutional ED: Denies chills or fever(s) ENT ENT ED: Denies sore throat Cardiovascular Cardiovascular: Denies chest pain Respiratory/Chest Respiratory/Chest: Denies cough or dyspnea Gastrointestinal Gastrointestinal: Reports abdominal pain and constipation; Denies diarrhea, nausea or vomiting Genitourinary Genitourinary ED: Denies dysuria or hematuria Musculoskeletal Musculoskeletal: Denies back pain or myalgias Integumentary Denies rash Neurologic Neurologic: Denies headache(s) Hematologic/Lymphatic Hematologic/Lymphatic: Denies easy bleeding or easy bruising EXAM Physical Exam Const Vital Signs: 03/09/24 01:35 Temperature 97.4 F L Temperature Source Temporal Pulse Rate 77 Respiratory Rate 18 Blood Pressure 139/76 H Blood Pressure Mean 97 Pulse Ox 97 Oxygen Delivery Method Room Air Positive well nourished, well developed and obese General Appearance ED: well developed; Negative for pallor Nutritional Appearance: obese HEENT Reports moist mucous membranes HEENT Narrative: No tongue or lip swelling no oral lesions no airway edema or compromise Eyes PERRL and EOMs intact bilaterally General Eye ED: Negative for scleral icterus Neck supple Neck Narrative: No nuchal rigidity or meningeal signs Resp normal respiratory effort and clear to auscultation bilaterally Cardio regular rate and regular rhythm Rate: other Other Details: Radial and carotid pulses are equal and symmetric GI non-distended GI Narrative: Abdomen is soft and nondistended with hypoactive bowel sounds. There is mild pain with palpation diffusely without voluntary guarding or rigidity No pulsatile mass or fluid wave No increased tympany Auscultation: hypoactive bowel sounds Palpation: soft Back/Spine no CVA tenderness Extremity normal to inspection Neuro oriented x3 and CN's II-XII intact bilaterally Sensorium / Orientation: alert Psych Psych Narrative: Patient has a anxious/nervous affect Mood & Affect: anxious Skin no rashes or lesions noted and no wounds General Skin Exam: Negative for jaundice or pallor MDM MDM MDM Narrative Medical decision making narrative: Patient arrived to the ER with stable vitals and a soft nonsurgical abdomen. Differential diagnosis is for constipation versus ileus versus viral stomach infection such as [place] or rotavirus. As he is diabetic there is also concern for potential electrolyte abnormality or DKA. The patient was seen roughly 12 hours ago and had all of the laboratory studies obtained which were normal and even had a CT scan of his abdomen pelvis with IV contrast. Based on the fact that is not even been 24 hours since his last evaluation and he had negative imaging studies and his exam and vitals at this time do not suggest an acute abdominal process I do not feel there is need for further workup. He will be given a stimulant laxative this time rounding GoLytely to help resolve the constipation but is otherwise safe for discharge History & Record Review Discussion w/independent historian: Patient Discharge Plan Triage Chief Complaint: Constipation ED Provider: Johann Lemons Dx/Rx/DC Orders Clinical Impression: Constipation, DM (diabetes mellitus), Essential hypertension, HLD (hyperlipidemia) Instructions: ED Constipation (Adult) Prescriptions: No Action metformin 500 MG tablet 500 mg PO BID Patient Comments: diabetes insulin glargine [Lantus Solostar U-100 Insulin] 100 unit/mL (3 mL) Insulin Pen 10 unit SUBCUT BID fluconazole [Diflucan] 200 mg tablet 200 mg PO DAILY glipizide 5 mg tablet 5 mg PO BID Rx Instructions: Hold if glucose less than 130 mg/dl ondansetron 4 mg tablet,disintegrating 4 mg PO Q8H PRN (Reason: nausea and vomiting) Qty: 10 0RF dicyclomine 20 mg tablet 20 mg PO TID PRN (Reason: abdominal cramping) Qty: 20 0RF diphenoxylate-atropine [Lomotil] 2.5-0.025 mg tablet 1 tab PO 4X/DAY PRN PRN (Reason: diarrhea) 5 Days Qty: 20 0RF meclizine 25 mg tablet 25 mg PO TID Qty: 30 0RF magnesium citrate [Citrate of Magnesia] Solution 300 ml PO DAILY PRN (Reason: constipation) Qty: 296 0RF Rx Instructions: Drink one half bottle if no bowel movement within 4 hours drink the second half of the bottle ibuprofen 600 mg tablet 600 mg PO Q8H PRN PRN (Reason: pain) Qty: 20 0RF cyclobenzaprine 10 mg tablet 10 mg PO TID PRN (Reason: Muscle Spasm) Qty: 20 0RF hydrocortisone 1 % cream 1 applic topical TID PRN (Reason: skin irritation) Qty: 28.4 0RF levothyroxine 100 mcg tablet 100 mcg PO DAILY Patient Comments: Take 1 tab by mouth once daily on an empty stomach insulin glargine [Lantus U-100 Insulin] 100 unit/mL solution 1 unit subcut QPM ciprofloxacin HCl [Cipro] 500 mg tablet 500 mg PO BID Qty: 20 0RF metronidazole 500 mg tablet 500 mg PO BID 10 Days Qty: 20 0RF polyethylene glycol 3350 [Miralax] 17 gram/dose powder 17 g PO DAILY Qty: 510 1RF Primary Care Provider: Linden Chavez Referrals: Linden Chavez DO [Primary Care Provider] - Activity Restrictions/Additional Instructions: When you get home drink half the bottle of magnesium citrate. If you do not have a bowel movement in 4 hours finished the bottle. Once the magnesium citrate is stimulated bowel movement continue to the MiraLAX daily to help with recurrent bowel movements and resolve your constipation. Print Language: Kyrgyz Disposition Disposition: Home, Self Care Discharge Date/Time: 03/09/24 02:55
[2024-03-09 02:47] VITALS: BP 136/71; PULSE 79; RESP 16; TEMP 37.1; O2SAT 99
[2024-03-09] MEDS: Electrolyte Solution/Peg's 4000 ML 2000 ML PO (02:53)
== END 2024-03-09 02:55 | disposition home or self-care (01) ==
PROVIDERS: Emergency Provider Emergency Medicine; PCP Family Medicine; Visit Provider Emergency Medicine
DX: K59.00 Constipation, unspecified (principal); J44.9 Chronic obstructive pulmonary disease, unspecified; E11.9 Type 2 diabetes mellitus without complications; Z79.4 Long term (current) use of insulin; I10 Essential (primary) hypertension; E78.5 Hyperlipidemia, unspecified; I25.2 Old myocardial infarction; Z79.84 Long term (current) use of oral hypoglycemic drugs; E03.9 Hypothyroidism, unspecified; Z79.899 Other long term (current) drug therapy; Z95.5 Presence of coronary angioplasty implant and graft
CPT/HCPCS: 99282

== ENCOUNTER 2024-05-07 23:32 | Emergency (ER) | payer OTHER, MEDICAID, SELFPAY ==
[2024-05-07 23:34] VITALS: BP 145/81; PULSE 88; RESP 16; TEMP 36.8; O2SAT 98; BMI 26.7
--- NOTE | 2024-05-08 00:33 | RAD_ITS ---
INDICATION: WEAKNESS EXAMINATION/TECHNIQUE: X-RAY - XR Chest 2 Views COMPARISON: 03/08/2024 and 11/22/2023 chest radiograph. Findings: Frontal and lateral views of the chest. LUNG PARENCHYMA: No acute focal airspace disease. 13 mm right lung base nodular opacity again noted, stable from only 4 months prior. PLEURA: No pleural effusion. No pneumothorax. HEART/GREAT VESSELS: Cardiomediastinal silhouette is unremarkable. BONES: Osseous structures are unremarkable for age. RAD/Chest PA and Lateral IMPRESSION: 13 mm right lung base nodular opacity again noted, to include pulmonary nodule, stable from only 4 months prior. Recommend comparison with previous CT chest imaging to document long-term stability versus follow-up evaluation as per Fleischner guidelines as neoplastic process is not excluded. Chest with no acute disease. Electronically Signed: Fantasma Laguerre MD at 1:08 EDT ,
[2024-05-08 00:41] LABS: Bacteria 0 SEEN /hpf (None Seen); Mucous, Urine 0 SEEN /hpf (<or=2+); Red Blood Cells-Urine 0 SEEN /hpf (0-5); Squamous Epithelial Cells - UA 0 SEEN /hpf (0-5); White Blood Cells 0 SEEN /hpf (0-5)
[2024-05-08 00:46] LABS: Glucose, Dipstick 1000 mg/dl (Normal); Ketone-Dipstick Negative (Negative); Leukocyte Esterase-Dipstick Negative /ul (Negative); Nitrite-Dipstick Negative (Negative); Occult Blood-Urine Negative /ul (Negative); Protein-Dipstick Negative (Negative); Urine Bilirubin Dipstick Negative (Negative); Urine Urobilinogen Normal (Normal); Urine pH 6.5 (5.0 - 8.0)
[2024-05-08] MEDS: 0.9% Normal Saline (1000mL) 1,000 ML 999 ML IV ×2 (00:51→02:31)
[2024-05-08 00:56] LABS: Color, Urine Yellow (Yellow); Urine Clarity Clear (Clear)
[2024-05-08 01:09] LABS: Absolute Lymphocyte Count 1.44 X10^3/uL (0.83-4.51); Absolute Neutrophil Count 3.7 X10^3/uL (2.0-7.7); Basophil# 0.04 X10^3/uL; Basophil% 0.7 % (0-1); Eosinophil# 0.13 X10^3/uL; Eosinophils% 2.2 % (0-5); Hematocrit 41.7 % (40-54); Hemoglobin 14.4 g/dL (13.0-16.5); Lymphocyte # 1.44 X10^3/ul (0.83-4.51); Lymphocyte % 24.4 % (19-41); Mean Corp Hgb Conc 34.5 g/dL (32-36); Mean Corpuscular Hgb 28.3 pg (27.0-32.0); Mean Corpuscular Volume 81.9 fL (80-94); Mean Platelet Vol. 9.3 fl (6.2-12.0); Monocyte% 8.5 % (0-10); NRBC Flagged by Analyzer 0 % (0-5); Neutrophil # 3.72 X10^3/uL (2.7-7.7); Platelet Count 178 K/mm3 (150-450); RBC Distribution Width CV 12.8 % (11.6-14.6); RBC Distribution Width SD 38.2 fl (35.1-43.9); Red Blood Count 5.09 M/mm3 (4.6-6.2); White Blood Count 5.9 K/mm3 (4.4-11.0)
[2024-05-08 01:12] LABS: AST(SGOT) 23 U/L (15-37); Alanine Aminotransfer ALT/SGPT 16 U/L (16-61); Albumin, Serum 3.5 g/dL (3.2-5.0); Alkaline Phosphatase 77 U/L (45-117); Anion Gap 9 (5-15); BUN 18 mg/dL (7-18); BUN/Creat Ratio 16.7 RATIO (10-20); Bilirubin, Direct 0.18 mg/dL (0.00-0.30); Calcium,Total 9.4 mg/dL (8.5-10.1); Chloride 94 mmol/L (98-107); Creatinine, Serum 1.08 mg/dL (0.70-1.30); EST Glomerular Filtration Rate 73 mL/min (>60); Est Glom Filt Rate - Afr Amer 89 mL/min (>60); Estimated Creatinine Clearance 87.08 ml/min; Globulin 3.4 g/dL (2.2-4.2); Glucose 620 mg/dL (74-106); Potassium 3.8 mmol/L (3.5-5.1); Protein, Total 6.9 g/dL (6.4-8.2); Sodium Level 132 mmol/L (136-145)
[2024-05-08 01:53] VITALS: BP 144/89; PULSE 87; RESP 19; O2SAT 98
[2024-05-08] MEDS: Insulin Lispro 100 UNIT/ML INSULN.PEN 10 UNIT SC (03:56)
--- NOTE | 2024-05-08 03:56 | EDS_ITS ---
HPI History of Present Illness Chief Complaint: Weakness Informant: patient Narrative Narrative: Patient is a 64-year-old male with past medical history of hypertension hyperlipidemia and insulin-dependent diabetes. He states that he is just felt tired for the last few days. He states that he has been taking his medication as directed but today checked his blood sugar and it was elevated at 380. He denies any fevers or chills abdominal pain nausea or vomiting. He states has been no dysuria and he denies any known sick contacts. He states that he deals with fluctuating constipation and diarrhea and has been having his normal bowel habits. 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 Esophageal candidiasis Current use of insulin Back pain due to injury Restless legs Injury of head and neck COPD (chronic obstructive pulmonary disease) High cholesterol History of stress test Depression Chronic pain Non-smoker Sleep apnea Diabetes Hyperlipidemia Hypertension Myocardial infarct Home Medications ?Medication ?Instructions ?Recorded ?Last Taken ?Type metformin 500 mg tablet,extended 500 mg PO BID diabetes 05/02/19 03/18/22 History release 24 hr fluconazole 200 mg tablet 200 mg PO DAILY antibiotic 03/19/22 03/18/22 History (Diflucan) glipizide 5 mg tablet 5 mg PO BID diabetes 03/19/22 03/18/22 History insulin glargine 100 unit/mL (3 10 unit subcut BID diabetes 03/19/22 03/18/22 History mL) subcutaneous pen (Lantus Solostar U-100 Insulin) ondansetron 4 mg disintegrating 4 mg PO Q8H PRN nausea and 04/26/22 Unknown Rx tablet vomiting #10 tabs dicyclomine 20 mg tablet 20 mg PO TID PRN abdominal 08/07/22 Unknown Rx cramping #20 tabs diphenoxylate-atropine 2.5 1 tab PO 4X/DAY PRN PRN diarrhea 5 10/30/22 Unknown Rx mg-0.025 mg tablet (Lomotil) days #20 tabs cyclobenzaprine 10 mg tablet 10 mg PO TID PRN Muscle Spasm #20 08/26/23 Unknown Rx TABLETS hydrocortisone 1 % topical cream 1 applic topical TID PRN skin 08/26/23 Unknown Rx irritation #28.4 grams ibuprofen 600 mg tablet 600 mg PO Q8H PRN PRN pain #20 08/26/23 Unknown Rx TABLETS ciprofloxacin HCl 500 mg tablet 500 mg PO BID #20 tabs 09/29/23 Unknown Rx (Cipro) insulin glargine 100 unit/mL 1 unit subcut QPM 09/29/23 Unknown History subcutaneous solution (Lantus U-100 Insulin) levothyroxine 100 mcg tablet 100 mcg PO DAILY 09/29/23 Unknown History metronidazole 500 mg tablet 500 mg PO BID 10 days #20 tabs 09/29/23 Unknown Rx magnesium citrate (Citrate of 300 ml PO DAILY PRN constipation 12/08/23 Unknown Rx Magnesia oral) #296 mL meclizine 25 mg tablet 25 mg PO TID #30 tabs 12/08/23 Unknown Rx polyethylene glycol 3350 17 17 g PO DAILY #510 grams 03/08/24 Unknown Rx gram/dose oral powder (Miralax) Allergy/AdvReac Type Severity Reaction Status Date / Time diphenhydramine HCl (From Allergy Rash Verified 05/07/24 23:36 Benadryl) Penicillins Allergy Rash Verified 05/07/24 23:36 venom-honey bee (bee venom Allergy Swelling Verified 05/07/24 23:36 (honey bee)) Surgical History History of coronary artery stent placement Hx of inguinal herniorrhaphy Hx of left knee surgery Social History household members: none Smoking Status: Never smoker substance use type: does not use ROS ROS ED Constitutional Constitutional ED: Denies chills or fever(s) Eyes Eyes: Denies blurry vision or change in vision ENT ENT ED: Denies rhinorrhea or sore throat Cardiovascular Cardiovascular: Denies chest pain Respiratory/Chest Respiratory/Chest: Denies cough or dyspnea Gastrointestinal Gastrointestinal: Reports constipation and diarrhea; Denies abdominal pain, nausea or vomiting Genitourinary Genitourinary ED: Denies dysuria Musculoskeletal Musculoskeletal: Denies myalgias Integumentary Denies rash Neurologic Neurologic: Reports weakness; Denies headache(s) Hematologic/Lymphatic Hematologic/Lymphatic: Denies easy bleeding or easy bruising EXAM Physical Exam Const Vital Signs: 05/07/24 23:34 05/07/24 23:46 05/08/24 01:53 Temperature 98.2 F Temperature Source Oral Pulse Rate 88 87 Respiratory Rate 16 19 H Respiratory Effort Normal Respiratory Pattern Normal Blood Pressure 145/81 H 144/89 H Blood Pressure Mean 102 107 Pulse Ox 98 98 Oxygen Delivery Method Room Air Room Air 05/08/24 03:59 Temperature 97.9 F Temperature Source Pulse Rate 67 Respiratory Rate 16 Respiratory Effort Respiratory Pattern Blood Pressure 136/83 H Blood Pressure Mean 100 Pulse Ox 95 Oxygen Delivery Method Positive well nourished, well developed and obese General Appearance ED: well developed; Negative for pallor Nutritional Appearance: obese HEENT HEENT Narrative: Mucous membranes are slightly dry and tacky without tongue or lip swelling oral lesions airway edema or compromise No findings in the posterior pharynx consistent with infection Eyes PERRL and EOMs intact bilaterally General Eye ED: Negative for pale conjunctiva or scleral icterus Neck supple Neck Narrative: No nuchal rigidity or meningeal signs Chest Wall palpation of chest normal Resp normal respiratory effort and clear to auscultation bilaterally Resp Narrative: Breath sounds are slight diminished throughout but overall clear to auscultation without signs of distress Cardio regular rate and regular rhythm Rate: other Other Details: Radial and carotid pulses are equal and symmetric GI normal to inspection, nondistended, normoactive bowel sounds, non-tender, non- distended and no masses GI Narrative: No voluntary guarding or rigidity or pulsatile mass Auscultation: normoactive bowel sounds Palpation: soft Back/Spine no CVA tenderness Extremity normal to inspection Neuro oriented x3, CN's II-XII intact bilaterally and no sensory deficits noted Neuro Narrative: NIH stroke scale score of 0 Sensorium / Orientation: alert Motor Exam: strength 5/5 throughout Psych mental status grossly normal Skin Skin Narrative: Skin turgor slightly increased General Skin Exam: Negative for jaundice or pallor MDM MDM MDM Narrative Medical decision making narrative: Patient arrived to the ER slightly hypertensive otherwise with stable vitals. He reported has been taking his medication as directed but his blood sugar today has been running high and he is feels tired. Differential diagnosis is for pneumonia versus UTI versus acute kidney injury versus electrolyte abnormality versus acute blood loss anemia versus DKA. Secondary to his basic labs were obtained. Lab work showed elevation to his sugar at 620 but no derangement to his bicarb or serum acetone going against DKA. Urine showed no sign of infection and chest x-ray revealed no obvious pneumonia. As he did not have any abdominal pain fever or leukocytosis I felt no need for CT of the abdomen. We discussed COVID flu and RSV testing but patient does not want that performed at this time. After receiving 2 L of IV fluid his blood sugar reduced to 380 and therefore he was given 10 units of subcutaneous insulin as directed by the sliding scale. However as there is no signs of overt infection or DKA or acute kidney injury I do not feel there is need for hospitalization and patient is otherwise safe for discharge History & Record Review Discussion w/independent historian: Patient Lab Data Attestation: I reviewed the patient's lab results. Labs: Laboratory Results - last 24 hr 05/07/24 05/08/24 05/08/24 23:42 00:20 03:47 WBC 5.9 RBC 5.09 Hgb 14.4 Hct 41.7 MCV 81.9 MCH 28.3 MCHC 34.5 RDW Std Deviation 38.2 RDW Coeff of Manjinder 12.8 Plt Count 178 MPV 9.3 Immature Gran % (Auto) 1.200 H Neut % (Auto) 63.0 Lymph % (Auto) 24.4 [place] % (Auto) 8.5 Eos % (Auto) 2.2 Baso % (Auto) 0.7 Absolute Neuts (auto) 3.7 Absolute Lymphs (auto) 1.44 Nucleated RBC % 0 Sodium 132 L Potassium 3.8 Chloride 94 L Carbon Dioxide 29.0 Anion Gap 9 BUN 18 Creatinine 1.08 Estim Creat Clear Calc 87.08 Est GFR (MDRD) Af Amer 89 Est GFR (MDRD) Non-Af 73 BUN/Creatinine Ratio 16.7 Glucose 620 H* Calcium 9.4 Total Bilirubin 0.50 Direct Bilirubin 0.18 AST 23 ALT 16 Alkaline Phosphatase 77 Total Protein 6.9 Albumin 3.5 Globulin 3.4 Urine Color Yellow Urine Clarity Clear Urine pH 6.5 Ur Specific [place] 1.010 Urine Protein Negative Urine Glucose (UA) 1000 H Urine Ketones Negative Urine Occult Blood Negative Urine Nitrite Negative Urine Bilirubin Negative Urine Urobilinogen Normal Ur Leukocyte Esterase Negative Urine RBC 0 SEEN Urine WBC 0 SEEN Ur Squamous Epith Cells 0 SEEN Urine Bacteria 0 SEEN Urine Mucus 0 SEEN Acetone Level NEGATIVE POC Glucose 380 H Radiography Diagnostic Testing: Clinical Impression(s) from Imaging Studies Chest X-Ray 05/08/24 00:33 IMPRESSION: 13 mm right lung base nodular opacity again noted, to include pulmonary nodule, stable from only 4 months prior. Recommend comparison with previous CT chest imaging to document long-term stability versus follow-up evaluation as per Fleischner guidelines as neoplastic process is not excluded. Chest with no acute disease. Electronically Signed: Fantasma Laguerre MD at 1:08 EDT , Chest x-ray as interpreted by the emergency medicine physician reveals no acute infiltrate pneumothorax or pleural effusion Discharge Plan Triage Chief Complaint: Weakness ED Provider: Johann Lemons Dx/Rx/DC Orders Clinical Impression: Hyperglycemia, Essential hypertension, HLD (hyperlipidemia), Insulin dependent diabetes mellitus Instructions: Blood Sugar Check Steps, ED Diabetic Hyperglycemia Prescriptions: No Action metformin 500 MG tablet 500 mg PO BID Patient Comments: diabetes insulin glargine [Lantus Solostar U-100 Insulin] 100 unit/mL (3 mL) Insulin Pen 10 unit SUBCUT BID fluconazole [Diflucan] 200 mg tablet 200 mg PO DAILY glipizide 5 mg tablet 5 mg PO BID Rx Instructions: Hold if glucose less than 130 mg/dl ondansetron 4 mg tablet,disintegrating 4 mg PO Q8H PRN (Reason: nausea and vomiting) Qty: 10 0RF dicyclomine 20 mg tablet 20 mg PO TID PRN (Reason: abdominal cramping) Qty: 20 0RF diphenoxylate-atropine [Lomotil] 2.5-0.025 mg tablet 1 tab PO 4X/DAY PRN PRN (Reason: diarrhea) 5 Days Qty: 20 0RF meclizine 25 mg tablet 25 mg PO TID Qty: 30 0RF magnesium citrate [Citrate of Magnesia] Solution 300 ml PO DAILY PRN (Reason: constipation) Qty: 296 0RF Rx Instructions: Drink one half bottle if no bowel movement within 4 hours drink the second half of the bottle ibuprofen 600 mg tablet 600 mg PO Q8H PRN PRN (Reason: pain) Qty: 20 0RF cyclobenzaprine 10 mg tablet 10 mg PO TID PRN (Reason: Muscle Spasm) Qty: 20 0RF hydrocortisone 1 % cream 1 applic topical TID PRN (Reason: skin irritation) Qty: 28.4 0RF levothyroxine 100 mcg tablet 100 mcg PO DAILY Patient Comments: Take 1 tab by mouth once daily on an empty stomach insulin glargine [Lantus U-100 Insulin] 100 unit/mL solution 1 unit subcut QPM ciprofloxacin HCl [Cipro] 500 mg tablet 500 mg PO BID Qty: 20 0RF metronidazole 500 mg tablet 500 mg PO BID 10 Days Qty: 20 0RF polyethylene glycol 3350 [Miralax] 17 gram/dose powder 17 g PO DAILY Qty: 510 1RF Primary Care Provider: Linden Chavez Referrals: Linden Chavez DO [Primary Care Provider] - Activity Restrictions/Additional Instructions: Your workup today showed no signs of DKA or infection. Continue your medication as directed by your doctor and return to the ER should you have any further concerns Print Language: Frisian Disposition Disposition: Home, Self Care Discharge Date/Time: 05/08/24 04:03
[2024-05-08 03:59] VITALS: BP 136/83; PULSE 67; RESP 16; TEMP 36.6; O2SAT 95
[2024-05-08 04:09] LABS: Bedside Glucose 380 mg/dL (74-106)
== END 2024-05-08 04:03 | disposition home or self-care (01) ==
PROVIDERS: Emergency Provider Emergency Medicine; PCP Family Medicine; Visit Provider Emergency Medicine
DX: E11.65 Type 2 diabetes mellitus with hyperglycemia (principal); J44.9 Chronic obstructive pulmonary disease, unspecified; Z79.4 Long term (current) use of insulin; I10 Essential (primary) hypertension; E78.5 Hyperlipidemia, unspecified; I25.2 Old myocardial infarction
CPT/HCPCS: 71046; 80048; 80076; 81001; 82009; 82962; 85025; 96360; 96361; 99283; J7030; A4216

== ENCOUNTER 2024-05-18 07:29 | Emergency (ER) | payer OTHER, MEDICAID, SELFPAY ==
[2024-05-18 07:30] VITALS: BP 125/80; PULSE 69; RESP 20; TEMP 36.6; O2SAT 96
[2024-05-18 07:32] VITALS: BP 125/80; PULSE 69; RESP 20; TEMP 36.6; O2SAT 97; BMI 27.8
[2024-05-18] MEDS: Ondansetron 4 MG/2 ML Vial IV (08:08)
[2024-05-18] MEDS: 0.9% Normal Saline (1000mL) 1,000 ML 1000 ML IV (08:08)
[2024-05-18] MEDS: Dicyclomine 20 MG/2 ML Vial IM (08:09)
[2024-05-18 08:20] LABS: Absolute Lymphocyte Count 1.34 X10^3/uL (0.83-4.51); Absolute Neutrophil Count 4.7 X10^3/uL (2.0-7.7); Basophil# 0.04 X10^3/uL; Basophil% 0.6 % (0-1); Eosinophil# 0.16 X10^3/uL; Eosinophils% 2.4 % (0-5); Hematocrit 40.4 % (40-54); Hemoglobin 14.1 g/dL (13.0-16.5); Lymphocyte # 1.34 X10^3/ul (0.83-4.51); Lymphocyte % 19.7 % (19-41); Mean Corp Hgb Conc 34.9 g/dL (32-36); Mean Corpuscular Hgb 28.5 pg (27.0-32.0); Mean Corpuscular Volume 81.6 fL (80-94); Mean Platelet Vol. 9.6 fl (6.2-12.0); Monocyte# 0.49 X10^3/uL; Monocyte% 7.2 % (0-10); NRBC Flagged by Analyzer 0 % (0-5); Neutrophil # 4.74 X10^3/uL (2.7-7.7); Neutrophil % 69.8 % (47-70); Platelet Count 186 K/mm3 (150-450); RBC Distribution Width CV 13.2 % (11.6-14.6); RBC Distribution Width SD 38.5 fl (35.1-43.9); Red Blood Count 4.95 M/mm3 (4.6-6.2); White Blood Count 6.8 K/mm3 (4.4-11.0)
[2024-05-18 08:36] LABS: AST(SGOT) 11 U/L (15-37); Alanine Aminotransfer ALT/SGPT 18 U/L (16-61); Albumin, Serum 3.5 g/dL (3.2-5.0); Alkaline Phosphatase 81 U/L (45-117); Anion Gap 8 (5-15); BUN 21 mg/dL (7-18); BUN/Creat Ratio 19.6 RATIO (10-20); Chloride 98 mmol/L (98-107); Creatinine, Serum 1.07 mg/dL (0.70-1.30); EST Glomerular Filtration Rate 74 mL/min (>60); Est Glom Filt Rate - Afr Amer 89 mL/min (>60); Globulin 3.4 g/dL (2.2-4.2); Glucose 448 mg/dL (74-106); Potassium 4.1 mmol/L (3.5-5.1); Protein, Total 6.9 g/dL (6.4-8.2); Sodium Level 134 mmol/L (136-145)
[2024-05-18 09:21] VITALS: BP 147/91; PULSE 78; RESP 16; TEMP 36.2; O2SAT 98
--- NOTE | 2024-05-18 09:59 | EDS_ITS ---
HPI History of Present Illness Chief Complaint: Nausea/Vomiting/Diarrhea Informant: patient Onset/Context/Timing Onset: Today Narrative Narrative: Patient states he woke this morning feeling nauseated and having diarrhea. No fever or chills. He does have some recent visits for constipation and states that he has been using Pepto-Bismol as well as Imodium intermittently. 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 Esophageal candidiasis Current use of insulin Back pain due to injury Restless legs Injury of head and neck COPD (chronic obstructive pulmonary disease) High cholesterol History of stress test Depression Chronic pain Non-smoker Sleep apnea Diabetes Hyperlipidemia Hypertension Myocardial infarct Home Medications ?Medication ?Instructions ?Recorded ?Last Taken ?Type metformin 500 mg tablet,extended 500 mg PO BID diabetes 05/02/19 03/18/22 History release 24 hr fluconazole 200 mg tablet 200 mg PO DAILY antibiotic 03/19/22 03/18/22 History (Diflucan) glipizide 5 mg tablet 5 mg PO BID diabetes 03/19/22 03/18/22 History insulin glargine 100 unit/mL (3 10 unit subcut BID diabetes 03/19/22 03/18/22 History mL) subcutaneous pen (Lantus Solostar U-100 Insulin) ondansetron 4 mg disintegrating 4 mg PO Q8H PRN nausea and 04/26/22 Unknown Rx tablet vomiting #10 tabs dicyclomine 20 mg tablet 20 mg PO TID PRN abdominal 08/07/22 Unknown Rx cramping #20 tabs diphenoxylate-atropine 2.5 1 tab PO 4X/DAY PRN PRN diarrhea 5 10/30/22 Unknown Rx mg-0.025 mg tablet (Lomotil) days #20 tabs cyclobenzaprine 10 mg tablet 10 mg PO TID PRN Muscle Spasm #08/26/23 Unknown Rx TABLETS hydrocortisone 1 % topical cream 1 applic topical TID PRN skin 08/26/23 Unknown Rx irritation #28.4 grams ibuprofen 600 mg tablet 600 mg PO Q8H PRN PRN pain #20 08/26/23 Unknown Rx TABLETS insulin glargine 100 unit/mL 1 unit subcut QPM 09/29/23 Unknown History subcutaneous solution (Lantus U-100 Insulin) levothyroxine 100 mcg tablet 100 mcg PO DAILY 09/29/23 Unknown History magnesium citrate (Citrate of 300 ml PO DAILY PRN constipation 12/08/23 Unknown Rx Magnesia oral) #296 mL meclizine 25 mg tablet 25 mg PO TID #30 tabs 12/08/23 Unknown Rx polyethylene glycol 3350 17 17 g PO DAILY #510 grams 03/08/24 Unknown Rx gram/dose oral powder (Miralax) dicyclomine 20 mg tablet 20 mg PO TID PRN abd pain #14 tabs 05/18/24 Unknown Rx ondansetron 4 mg disintegrating 4 mg PO Q8H PRN PRN Nausea #10 tabs 05/18/24 Unknown Rx tablet Allergy/AdvReac Type Severity Reaction Status Date / Time diphenhydramine HCl (From Allergy Rash Verified 05/18/24 07:32 Benadryl) Penicillins Allergy Rash Verified 05/18/24 07:32 venom-honey bee (bee venom Allergy Swelling Verified 05/18/24 07:32 (honey bee)) Surgical History Hx of left knee surgery Hx of inguinal herniorrhaphy History of coronary artery stent placement Social History household members: none Smoking Status: Never smoker substance use type: does not use ROS ROS ED Constitutional Constitutional ED: Denies chills or fever(s) Eyes Eyes: Denies discharge from eye(s) ENT ENT ED: Denies discharge from eye(s), rhinorrhea or sore throat Cardiovascular Cardiovascular: Denies chest pain or palpitations Respiratory/Chest Respiratory/Chest: Denies cough or dyspnea Gastrointestinal Gastrointestinal: Reports diarrhea, nausea and vomiting; Denies abdominal pain Genitourinary Genitourinary ED: Denies dysuria Musculoskeletal Musculoskeletal: Denies back pain or extremity pain Integumentary Denies Abrasions or rash Neurologic Neurologic: Denies headache(s) or weakness Allergic/Immunologic Allergic/Immunologic ED: Denies lip swelling or urticaria EXAM Physical Exam Const Vital Signs: 05/18/24 07:30 05/18/24 07:32 05/18/24 09:21 Temperature 98 F 97.9 F 97.1 F L Temperature Source Temporal Temporal Temporal Pulse Rate 69 69 78 Respiratory Rate 20 H 20 H 16 Blood Pressure 125/80 H 125/80 H 147/91 H Blood Pressure Mean 95 95 109 Pulse Ox 96 97 98 Oxygen Delivery Method Room Air Room Air Room Air 05/18/24 10:12 Temperature 97.1 F L Temperature Source Pulse Rate 73 Respiratory Rate 16 Blood Pressure 135/86 H Blood Pressure Mean 102 Pulse Ox 93 Oxygen Delivery Method Positive well nourished and well developed General Appearance ED: well developed HEENT Reports moist mucous membranes Eyes EOMs intact bilaterally Chest Wall inspection of chest normal and palpation of chest normal Resp normal respiratory effort and clear to auscultation bilaterally Cardio regular rate and regular rhythm GI non-tender Auscultation: hypoactive bowel sounds Palpation: soft Extremity normal to inspection Neuro oriented x3 and no sensory deficits noted Motor Exam: strength 5/5 throughout Psych mental status grossly normal Skin no rashes or lesions noted MDM MDM MDM Narrative Medical decision making narrative: Patient given IV fluids, Zofran, and Bentyl. Labwork obtained to evaluate for leukocytosis, anemia, and electrolyte derangement. History & Record Review Discussion w/independent historian: Patient Additional record(s) reviewed:: Prior ED visit and Prior labs Lab Data Attestation: I reviewed the patient's lab results. Labs: Laboratory Results - last 24 hr 05/18/24 08:10 WBC 6.8 RBC 4.95 Hgb 14.1 Hct 40.4 MCV 81.6 MCH 28.5 MCHC 34.9 RDW Std Deviation 38.5 RDW Coeff of Manjinder 13.2 Plt Count 186 MPV 9.6 Immature Gran % (Auto) 0.300 Neut % (Auto) 69.8 Lymph % (Auto) 19.7 [place] % (Auto) 7.2 Eos % (Auto) 2.4 Baso % (Auto) 0.6 Absolute Neuts (auto) 4.7 Absolute Lymphs (auto) 1.34 Nucleated RBC % 0 Sodium 134 L Potassium 4.1 Chloride 98 Carbon Dioxide 28.0 Anion Gap 8 BUN 21 H Creatinine 1.07 Estim Creat Clear Calc 87.90 Est GFR (MDRD) Af Amer 89 Est GFR (MDRD) Non-Af 74 BUN/Creatinine Ratio 19.6 Glucose 448 H Calcium 9.0 Total Bilirubin 0.60 AST 11 L ALT 18 Alkaline Phosphatase 81 Total Protein 6.9 Albumin 3.5 Globulin 3.4 Albumin/Globulin Ratio 1.0 Treatment and Re-Evaluation :: CBC was normal white count 6.8 with 69% neutrophils. Hemoglobin 14.1. Chemistry studies unremarkable other than a glucose of 448. LFTs are normal. On repeat evaluation patient sleeping comfortably. He easily awakens. He does report improvement in his symptoms. He will be given a prescription for Zofran and Bentyl at home. He will follow bland diet and slowly advance. Return instructions provided. Discharge Plan Triage Chief Complaint: Nausea/Vomiting/Diarrhea ED Provider: Shania Disla Dx/Rx/DC Orders Clinical Impression: Gastroenteritis Instructions: ED Gastroenteritis, Noninfectious Prescriptions: New ondansetron 4 mg tablet,disintegrating 4 mg PO Q8H PRN PRN (Reason: Nausea) Qty: 10 0RF dicyclomine 20 mg tablet 20 mg PO TID PRN (Reason: abd pain) Qty: 14 0RF No Action metformin 500 MG tablet 500 mg PO BID Patient Comments: diabetes insulin glargine [Lantus Solostar U-100 Insulin] 100 unit/mL (3 mL) Insulin Pen 10 unit SUBCUT BID fluconazole [Diflucan] 200 mg tablet 200 mg PO DAILY glipizide 5 mg tablet 5 mg PO BID Rx Instructions: Hold if glucose less than 130 mg/dl ondansetron 4 mg tablet,disintegrating 4 mg PO Q8H PRN (Reason: nausea and vomiting) Qty: 10 0RF dicyclomine 20 mg tablet 20 mg PO TID PRN (Reason: abdominal cramping) Qty: 20 0RF diphenoxylate-atropine [Lomotil] 2.5-0.025 mg tablet 1 tab PO 4X/DAY PRN PRN (Reason: diarrhea) 5 Days Qty: 20 0RF meclizine 25 mg tablet 25 mg PO TID Qty: 30 0RF magnesium citrate [Citrate of Magnesia] Solution 300 ml PO DAILY PRN (Reason: constipation) Qty: 296 0RF Rx Instructions: Drink one half bottle if no bowel movement within 4 hours drink the second half of the bottle ibuprofen 600 mg tablet 600 mg PO Q8H PRN PRN (Reason: pain) Qty: 20 0RF cyclobenzaprine 10 mg tablet 10 mg PO TID PRN (Reason: Muscle Spasm) Qty: 20 0RF hydrocortisone 1 % cream 1 applic topical TID PRN (Reason: skin irritation) Qty: 28.4 0RF levothyroxine 100 mcg tablet 100 mcg PO DAILY Patient Comments: Take 1 tab by mouth once daily on an empty stomach insulin glargine [Lantus U-100 Insulin] 100 unit/mL solution 1 unit subcut QPM polyethylene glycol 3350 [Miralax] 17 gram/dose powder 17 g PO DAILY Qty: 510 1RF Primary Care Provider: Linden Chavez Referrals: Linden Chavez DO [Primary Care Provider] - 1 Week if not improving Print Language: Citizen Of [place] Disposition Disposition: Home, Self Care Discharge Date/Time: 05/18/24 10:13
[2024-05-18 10:12] VITALS: BP 135/86; PULSE 73; RESP 16; TEMP 36.2; O2SAT 93
== END 2024-05-18 10:13 | disposition home or self-care (01) ==
PROVIDERS: Emergency Provider Emergency Medicine; PCP Family Medicine; Visit Provider Emergency Medicine
DX: K52.9 Noninfective gastroenteritis and colitis, unspecified (principal); J44.9 Chronic obstructive pulmonary disease, unspecified; E11.9 Type 2 diabetes mellitus without complications; Z79.4 Long term (current) use of insulin; I10 Essential (primary) hypertension; I25.2 Old myocardial infarction; Z79.84 Long term (current) use of oral hypoglycemic drugs; Z79.899 Other long term (current) drug therapy; Z95.5 Presence of coronary angioplasty implant and graft
CPT/HCPCS: 80053; 85025; 96361; 96372; 96374; 96376; 99283; J7030; A4216; J2405

== ENCOUNTER 2024-05-27 21:45 | Emergency (ER) | payer OTHER, MEDICAID, SELFPAY ==
[2024-05-27 21:46] VITALS: BP 130/75; PULSE 69; RESP 16; TEMP 35.9; O2SAT 94; BMI 26.8
[2024-05-27 22:13] LABS: Bedside Glucose 478 mg/dL (74-106)
[2024-05-27] MEDS: 0.9% Normal Saline (1000mL) 1,000 ML 999 ML IV ×2 (22:20→23:39)
--- NOTE | 2024-05-27 22:21 | EX.ED.DYSGE1 ---
HPI History of Present Illness Chief Complaint: Hyperglycemia Informant: patient Narrative Narrative: Patient is a 64-year-old male with past medical history of hypertension hyperlipidemia insulin-dependent diabetes and COPD. He states that he believes his blood sugar is high because he does not feel well. He also states that he has means to test his blood sugar at home but just does not want to. He cannot provide any other history or symptomatology such as fevers or chills abdominal pain nausea vomiting diarrhea dysuria cough or shortness of breath but simply states that he does just not feel well. 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 Esophageal candidiasis Current use of insulin Back pain due to injury Restless legs Injury of head and neck COPD (chronic obstructive pulmonary disease) High cholesterol History of stress test Depression Chronic pain Non-smoker Sleep apnea Diabetes Hyperlipidemia Hypertension Myocardial infarct Home Medications ?Medication ?Instructions ?Recorded ?Last Taken ?Type metformin 500 mg tablet,extended 500 mg PO BID diabetes 05/02/19 03/18/22 History release 24 hr fluconazole 200 mg tablet 200 mg PO DAILY antibiotic 03/19/22 03/18/22 History (Diflucan) glipizide 5 mg tablet 5 mg PO BID diabetes 03/19/22 03/18/22 History insulin glargine 100 unit/mL (3 10 unit subcut BID diabetes 03/19/22 03/18/22 History mL) subcutaneous pen (Lantus Solostar U-100 Insulin) ondansetron 4 mg disintegrating 4 mg PO Q8H PRN nausea and 04/26/22 Unknown Rx tablet vomiting #10 tabs dicyclomine 20 mg tablet 20 mg PO TID PRN abdominal 08/07/22 Unknown Rx cramping #20 tabs diphenoxylate-atropine 2.5 1 tab PO 4X/DAY PRN PRN diarrhea 5 10/30/22 Unknown Rx mg-0.025 mg tablet (Lomotil) days #20 tabs cyclobenzaprine 10 mg tablet 10 mg PO TID PRN Muscle Spasm #20 08/26/23 Unknown Rx TABLETS hydrocortisone 1 % topical cream 1 applic topical TID PRN skin 08/26/23 Unknown Rx irritation #28.4 grams ibuprofen 600 mg tablet 600 mg PO Q8H PRN PRN pain #20 08/26/23 Unknown Rx TABLETS insulin glargine 100 unit/mL 1 unit subcut QPM 09/29/23 Unknown History subcutaneous solution (Lantus U-100 Insulin) levothyroxine 100 mcg tablet 100 mcg PO DAILY 09/29/23 Unknown History magnesium citrate (Citrate of 300 ml PO DAILY PRN constipation 12/08/23 Unknown Rx Magnesia oral) #296 mL meclizine 25 mg tablet 25 mg PO TID #30 tabs 12/08/23 Unknown Rx polyethylene glycol 3350 17 17 g PO DAILY #510 grams 03/08/24 Unknown Rx gram/dose oral powder (Miralax) dicyclomine 20 mg tablet 20 mg PO TID PRN abd pain #14 tabs 05/18/24 Unknown Rx ondansetron 4 mg disintegrating 4 mg PO Q8H PRN PRN Nausea #10 tabs 05/18/24 Unknown Rx tablet Allergy/AdvReac Type Severity Reaction Status Date / Time diphenhydramine HCl (From Allergy Rash Verified 05/27/24 21:46 Benadryl) Penicillins Allergy Rash Verified 05/27/24 21:46 venom-honey bee (bee venom Allergy Swelling Verified 05/27/24 21:46 (honey bee)) Surgical History Hx of left knee surgery Hx of inguinal herniorrhaphy History of coronary artery stent placement Social History household members: none Smoking Status: Never smoker substance use type: does not use ROS ROS ED Constitutional Constitutional ED: Denies chills or fever(s) Eyes Eyes: Denies blurry vision or change in vision ENT ENT ED: Denies rhinorrhea or sore throat Cardiovascular Cardiovascular: Denies chest pain or palpitations Respiratory/Chest Respiratory/Chest: Denies cough or dyspnea Gastrointestinal Gastrointestinal: Denies abdominal pain, diarrhea, nausea or vomiting Genitourinary Genitourinary ED: Denies dysuria or hematuria Musculoskeletal Musculoskeletal: Denies myalgias Integumentary Denies rash Neurologic Neurologic: Denies headache(s) Hematologic/Lymphatic Hematologic/Lymphatic: Denies easy bleeding or easy bruising EXAM Physical Exam Const Vital Signs: 05/27/24 21:46 05/27/24 22:13 05/28/24 00:30 Temperature 96.7 F L Temperature Source Temporal Pulse Rate 69 73 Respiratory Rate 16 18 Respiratory Effort Normal Non-Labored Respiratory Pattern Normal Blood Pressure 130/75 H 124/78 H Blood Pressure Mean 93 93 Pulse Ox 94 98 Oxygen Delivery Method Room Air Room Air Positive well nourished and well developed General Appearance ED: well developed; Negative for pallor HEENT Reports moist mucous membranes HEENT Narrative: No tongue or lip swelling no oral lesions no airway edema or compromise No signs of infection noted in the posterior pharynx Eyes PERRL and EOMs intact bilaterally General Eye ED: Negative for scleral icterus Neck supple Neck Narrative: No nuchal rigidity or meningeal signs Resp normal respiratory effort Resp Narrative: Breath sounds are diminished throughout with faint wheeze and rhonchi in the bilateral lower lobes consistent with history of COPD but no signs of respiratory distress Cardio regular rate and regular rhythm Rate: other Other Details: Radial and carotid pulses are equal and symmetric GI normal to inspection, nondistended, normoactive bowel sounds, non-tender, non-distended and no masses GI Narrative: No voluntary guarding or rigidity or pulsatile mass Auscultation: normoactive bowel sounds Palpation: soft Back/Spine no CVA tenderness Extremity normal to inspection Extremity Narrative: No asymmetric edema no pitting edema negative Homans' sign bilaterally Neuro oriented x3, CN's II-XII intact bilaterally and no sensory deficits noted Sensorium / Orientation: alert Motor Exam: strength 5/5 throughout Psych Psych Narrative: Patient has a flat affect Skin no rashes or lesions noted General Skin Exam: Negative for jaundice or pallor MDM MDM MDM Narrative Medical decision making narrative: Patient presented to the ER with stable vitals and complained of just not feeling well. He cannot elaborate on his feeling of unwellness however he is not insulin-dependent diabetic and his sugar was elevated on Accu-Chek and therefore there is concern that symptoms could be related to DKA versus HHS versus TARYN versus severe electro abnormality or potential systemic infection or UTI. Secondary to his basic blood work was obtained as well as urine sample. His bicarb is normal his anion gap is not elevated there are no serum ketones and therefore he is not in DKA. His calculated serum osmolality is normal at 305 going against HHS. Lab work shows no sign of acute kidney injury and he does not have any type of severe electrolyte abnormality. Moreover there is sugar in his urine consistent with diabetes but no findings to suggest infection. As his abdomen is soft and nonsurgical I felt no need for a CT scan and evening his COPD despite the fact he is not coughing or hypoxic or having a fever or white count do not feel there is need for chest x-ray. Patient was given 2 L of IV fluid and his blood sugar reduced to roughly 400 therefore he will be given a dose of 10 units subcu insulin but as he is not in DKA or HHS and there are no signs of systemic infection he is otherwise safe for discharge History & Record Review Discussion w/independent historian: Patient Lab Data Attestation: I reviewed the patient's lab results. Labs: Laboratory Results - last 24 hr 05/27/24 05/27/24 05/27/24 21:55 22:07 23:09 WBC 5.8 RBC 4.91 Hgb 14.3 Hct 40.4 MCV 82.3 MCH 29.1 MCHC 35.4 RDW Std Deviation 39.8 RDW Coeff of Manjinder 13.4 Plt Count 204 MPV 9.5 Immature Gran % (Auto) 0.200 Neut % (Auto) 64.5 Lymph % (Auto) 25.9 [place] % (Auto) 6.3 Eos % (Auto) 2.4 Baso % (Auto) 0.7 Absolute Neuts (auto) 3.8 Absolute Lymphs (auto) 1.51 Nucleated RBC % 0 Sodium 135 L Potassium 4.1 Chloride 98 Carbon Dioxide 30.0 Anion Gap 7 BUN 16 Creatinine 1.03 Estim Creat Clear Calc 91.31 Est GFR (MDRD) Af Amer 94 Est GFR (MDRD) Non-Af 77 BUN/Creatinine Ratio 15.5 Glucose 534 H* Calcium 9.1 Total Bilirubin 0.50 Direct Bilirubin 0.07 AST 27 ALT 23 Alkaline Phosphatase 77 Total Protein 6.8 Albumin 3.3 Globulin 3.5 Lipase 15 Urine Color Urine Clarity Urine pH Ur Specific [place] Urine Protein Urine Glucose (UA) Urine Ketones Urine Occult Blood Urine Nitrite Urine Bilirubin Urine Urobilinogen Ur Leukocyte Esterase Urine RBC Urine WBC Ur Squamous Epith Cells Urine Bacteria Urine Mucus Acetone Level NEGATIVE POC Glucose 478 H* > 500 H* 05/27/24 23:20 WBC RBC Hgb Hct MCV MCH MCHC RDW Std Deviation RDW Coeff of Manjinder Plt Count MPV Immature Gran % (Auto) Neut % (Auto) Lymph % (Auto) [place] % (Auto) Eos % (Auto) Baso % (Auto) Absolute Neuts (auto) Absolute Lymphs (auto) Nucleated RBC % Sodium Potassium Chloride Carbon Dioxide Anion Gap BUN Creatinine Estim Creat Clear Calc Est GFR (MDRD) Af Amer Est GFR (MDRD) Non-Af BUN/Creatinine Ratio Glucose Calcium Total Bilirubin Direct Bilirubin AST ALT Alkaline Phosphatase Total Protein Albumin Globulin Lipase Urine Color Yellow Urine Clarity Clear Urine pH 7.0 Ur Specific [place] 1.010 Urine Protein Negative Urine Glucose (UA) 1000 H Urine Ketones Negative Urine Occult Blood Negative Urine Nitrite Negative Urine Bilirubin Negative Urine Urobilinogen Normal Ur Leukocyte Esterase Negative Urine RBC 0 SEEN Urine WBC 0 SEEN Ur Squamous Epith Cells 0-5 SEEN Urine Bacteria 0 SEEN Urine Mucus 0 SEEN Acetone Level POC Glucose Discharge Plan Triage Chief Complaint: Hyperglycemia ED Provider: Johann Lemons Dx/Rx/DC Orders Clinical Impression: Insulin dependent diabetes mellitus, Hyperglycemia, Essential hypertension, HLD (hyperlipidemia) Instructions: Blood Sugar Check Steps, Diabetes and Illness Prescriptions: No Action metformin 500 MG tablet 500 mg PO BID Patient Comments: diabetes insulin glargine [Lantus Solostar U-100 Insulin] 100 unit/mL (3 mL) Insulin Pen 10 unit SUBCUT BID fluconazole [Diflucan] 200 mg tablet 200 mg PO DAILY glipizide 5 mg tablet 5 mg PO BID Rx Instructions: Hold if glucose less than 130 mg/dl ondansetron 4 mg tablet,disintegrating 4 mg PO Q8H PRN (Reason: nausea and vomiting) Qty: 10 0RF dicyclomine 20 mg tablet 20 mg PO TID PRN (Reason: abdominal cramping) Qty: 20 0RF diphenoxylate-atropine [Lomotil] 2.5-0.025 mg tablet 1 tab PO 4X/DAY PRN PRN (Reason: diarrhea) 5 Days Qty: 20 0RF meclizine 25 mg tablet 25 mg PO TID Qty: 30 0RF magnesium citrate [Citrate of Magnesia] Solution 300 ml PO DAILY PRN (Reason: constipation) Qty: 296 0RF Rx Instructions: Drink one half bottle if no bowel movement within 4 hours drink the second half of the bottle ibuprofen 600 mg tablet 600 mg PO Q8H PRN PRN (Reason: pain) Qty: 20 0RF cyclobenzaprine 10 mg tablet 10 mg PO TID PRN (Reason: Muscle Spasm) Qty: 20 0RF hydrocortisone 1 % cream 1 applic topical TID PRN (Reason: skin irritation) Qty: 28.4 0RF levothyroxine 100 mcg tablet 100 mcg PO DAILY Patient Comments: Take 1 tab by mouth once daily on an empty stomach insulin glargine [Lantus U-100 Insulin] 100 unit/mL solution 1 unit subcut QPM polyethylene glycol 3350 [Miralax] 17 gram/dose powder 17 g PO DAILY Qty: 510 1RF ondansetron 4 mg tablet,disintegrating 4 mg PO Q8H PRN PRN (Reason: Nausea) Qty: 10 0RF dicyclomine 20 mg tablet 20 mg PO TID PRN (Reason: abd pain) Qty: 14 0RF Primary Care Provider: Linden Chavez Referrals: Linden Chavez DO [Primary Care Provider] - Print Language: Dominican Disposition Disposition: Home, Self Care
[2024-05-27 22:33] LABS: Absolute Lymphocyte Count 1.51 X10^3/uL (0.83-4.51); Absolute Neutrophil Count 3.8 X10^3/uL (2.0-7.7); Basophil# 0.04 X10^3/uL; Basophil% 0.7 % (0-1); Eosinophil# 0.14 X10^3/uL; Eosinophils% 2.4 % (0-5); Hematocrit 40.4 % (40-54); Hemoglobin 14.3 g/dL (13.0-16.5); Lymphocyte # 1.51 X10^3/ul (0.83-4.51); Lymphocyte % 25.9 % (19-41); Mean Corp Hgb Conc 35.4 g/dL (32-36); Mean Corpuscular Hgb 29.1 pg (27.0-32.0); Mean Corpuscular Volume 82.3 fL (80-94); Mean Platelet Vol. 9.5 fl (6.2-12.0); Monocyte# 0.37 X10^3/uL; Monocyte% 6.3 % (0-10); NRBC Flagged by Analyzer 0 % (0-5); Neutrophil # 3.77 X10^3/uL (2.7-7.7); Neutrophil % 64.5 % (47-70); Platelet Count 204 K/mm3 (150-450); RBC Distribution Width CV 13.4 % (11.6-14.6); RBC Distribution Width SD 39.8 fl (35.1-43.9); Red Blood Count 4.91 M/mm3 (4.6-6.2); White Blood Count 5.8 K/mm3 (4.4-11.0)
[2024-05-27] MEDS: Ketorolac 15 MG/ML Vial IV (22:39)
[2024-05-27 23:13] LABS: AST(SGOT) 27 U/L (15-37); Alanine Aminotransfer ALT/SGPT 23 U/L (16-61); Albumin, Serum 3.3 g/dL (3.2-5.0); Alkaline Phosphatase 77 U/L (45-117); Anion Gap 7 (5-15); BUN 16 mg/dL (7-18); BUN/Creat Ratio 15.5 RATIO (10-20); Bilirubin, Direct 0.07 mg/dL (0.00-0.30); Calcium,Total 9.1 mg/dL (8.5-10.1); Chloride 98 mmol/L (98-107); Creatinine, Serum 1.03 mg/dL (0.70-1.30); EST Glomerular Filtration Rate 77 mL/min (>60); Est Glom Filt Rate - Afr Amer 94 mL/min (>60); Estimated Creatinine Clearance 91.31 ml/min; Globulin 3.5 g/dL (2.2-4.2); Glucose 534 mg/dL (74-106); Lipase 15 U/L (13-75); Potassium 4.1 mmol/L (3.5-5.1); Protein, Total 6.8 g/dL (6.4-8.2); Sodium Level 135 mmol/L (136-145)
[2024-05-27 23:24] LABS: Bacteria 0 SEEN /hpf (None Seen); Mucous, Urine 0 SEEN /hpf (<or=2+); Red Blood Cells-Urine 0 SEEN /hpf (0-5); White Blood Cells 0 SEEN /hpf (0-5)
[2024-05-27 23:26] LABS: Color, Urine Yellow (Yellow); Glucose, Dipstick 1000 mg/dl (Normal); Ketone-Dipstick Negative (Negative); Leukocyte Esterase-Dipstick Negative /ul (Negative); Nitrite-Dipstick Negative (Negative); Occult Blood-Urine Negative /ul (Negative); Protein-Dipstick Negative (Negative); Urine Bilirubin Dipstick Negative (Negative); Urine Clarity Clear (Clear); Urine Urobilinogen Normal (Normal)
[2024-05-27 23:30] LABS: Bedside Glucose > 500 mg/dL (74-106)
[2024-05-27 23:32] LABS: Squamous Epithelial Cells - UA 0-5 SEEN /hpf (0-5)
[2024-05-28 00:30] VITALS: BP 124/78; PULSE 73; RESP 18; O2SAT 98
[2024-05-28] MEDS: Insulin Lispro 100 UNIT/ML INSULN.PEN 10 UNIT SC (00:54)
[2024-05-28 00:57] VITALS: BP 128/73; PULSE 79; RESP 18; TEMP 36.6; O2SAT 95
[2024-05-28 00:58] LABS: Bedside Glucose 402 mg/dL (74-106)
== END 2024-05-28 00:58 | disposition home or self-care (01) ==
PROVIDERS: Emergency Provider Emergency Medicine; PCP Family Medicine; Visit Provider Emergency Medicine
DX: E11.65 Type 2 diabetes mellitus with hyperglycemia (principal); J44.9 Chronic obstructive pulmonary disease, unspecified; Z79.4 Long term (current) use of insulin; I10 Essential (primary) hypertension; E78.00 Pure hypercholesterolemia, unspecified; G47.30 Sleep apnea, unspecified; Z95.5 Presence of coronary angioplasty implant and graft
CPT/HCPCS: 80048; 80076; 81001; 82009; 82962; 83690; 85025; 96361; 96374; 96376; 99283; J7030; A4216

== ENCOUNTER 2024-08-10 03:30 | Emergency (ER) | payer OTHER, MEDICAID, SELFPAY ==
[2024-08-10 03:31] VITALS: BP 171/88; PULSE 87; RESP 16; TEMP 36.8; O2SAT 96; BMI 26.6
--- NOTE | 2024-08-10 03:53 | EX.ED.DYSGE1 ---
HPI History of Present Illness Chief Complaint: Lower Extremity Injury Informant: patient Narrative Narrative: 64-year-old male presenting to the emergency room with chief complaint of back pain. Patient states that he was sitting watching TV tonight when he developed pain in his low back that radiated into his legs. He states he has had this before and his doctor has wrote him for muscle relaxants but he does not have any left. The patient is a very poor historian. He sits with his body turned away from me arms crossed and eyes closed and answers very minimally to any questions. Patient notes a history of diabetes from what I can see on his prior blood sugars poorly controlled. He states that nobody has ever done anything to look at his back. I see that he had a CT scan of his lumbar spine earlier this year that showed moderate to severe spinal stenosis due to disc disease of the lumbar spine. He states that he has never had an MRI and he is never visited with spine surgery or pain management. He states he walks with a cane because his knees hurt and sometimes give out. He denies any bowel or bladder dysfunction. He denies any fever. He notes a rash on his low back and when I asked him about it he states that it is that rash they take a cream for it. He states that the other bumps are mosquito bites. He denies any recent trauma. 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 Esophageal candidiasis Current use of insulin Back pain due to injury Restless legs Injury of head and neck COPD (chronic obstructive pulmonary disease) High cholesterol History of stress test Depression Chronic pain Non-smoker Sleep apnea Diabetes Hyperlipidemia Hypertension Myocardial infarct Home Medications ?Medication ?Instructions ?Recorded ?Last Taken ?Type metformin 500 mg tablet,extended 500 mg PO BID diabetes 05/02/19 03/18/22 History release 24 hr glipizide 5 mg tablet 5 mg PO BID diabetes 03/19/22 03/18/22 History insulin glargine 100 unit/mL (3 10 unit subcut BID diabetes 03/19/22 03/18/22 History mL) subcutaneous pen (Lantus Solostar U-100 Insulin) ondansetron 4 mg disintegrating 4 mg PO Q8H PRN nausea and 04/26/22 Unknown Rx tablet vomiting #10 tabs dicyclomine 20 mg tablet 20 mg PO TID PRN abdominal 08/07/22 Unknown Rx cramping #20 tabs diphenoxylate-atropine 2.5 1 tab PO 4X/DAY PRN PRN diarrhea 5 10/30/22 Unknown Rx mg-0.025 mg tablet (Lomotil) days #20 tabs hydrocortisone 1 % topical cream 1 applic topical TID PRN skin 08/26/23 Unknown Rx irritation #28.4 grams ibuprofen 600 mg tablet 600 mg PO Q8H PRN PRN pain #20 08/26/23 Unknown Rx TABLETS insulin glargine 100 unit/mL 1 unit subcut QPM 09/29/23 Unknown History subcutaneous solution (Lantus U-100 Insulin) levothyroxine 100 mcg tablet 100 mcg PO DAILY 09/29/23 Unknown History magnesium citrate (Citrate of 300 ml PO DAILY PRN constipation 12/08/23 Unknown Rx Magnesia oral) #296 mL meclizine 25 mg tablet 25 mg PO TID #30 tabs 12/08/23 Unknown Rx polyethylene glycol 3350 17 17 g PO DAILY #510 grams 03/08/24 Unknown Rx gram/dose oral powder (Miralax) cyclobenzaprine 10 mg tablet 10 mg PO TID PRN Muscle Spasm #15 08/10/24 Unknown Rx TABLETS oxycodone-acetaminophen 5 mg-325 1 tab PO Q6H PRN PRN Pain 3 days 08/10/24 Unknown Rx mg tablet #12 TABLETS Allergy/AdvReac Type Severity Reaction Status Date / Time diphenhydramine HCl (From Allergy Rash Verified 08/10/24 03:31 Benadryl) Penicillins Allergy Rash Verified 08/10/24 03:31 venom-honey bee (bee venom Allergy Swelling Verified 08/10/24 03:31 (honey bee)) Surgical History Hx of left knee surgery Hx of inguinal herniorrhaphy History of coronary artery stent placement Social History household members: none Smoking Status: Never smoker substance use type: does not use ROS ROS ED Constitutional Constitutional ED: Denies chills, fever(s) or weight loss Eyes Eyes: Denies change in vision or diplopia ENT ENT ED: Denies ear pain, rhinorrhea or sore throat Cardiovascular Cardiovascular: Denies chest pain, orthopnea, palpitations or racing heartbeat Respiratory/Chest Respiratory/Chest: Denies cough, dyspnea or orthopnea Gastrointestinal Gastrointestinal: Denies abdominal pain, diarrhea, nausea or vomiting Genitourinary Genitourinary ED: Denies dysuria, hematuria or urinary frequency Musculoskeletal Musculoskeletal: Reports back pain; Denies arthralgias or myalgias Integumentary Reports rash; Denies abscess Neurologic Neurologic: Reports paresthesias; Denies headache(s) or weakness Psychiatric Psychiatric: Denies anxiety, depression, suicidal ideation or suicidal thoughts Endocrine Endocrinology: Denies polydipsia, polyphagia or polyuria Allergic/Immunologic Allergic/Immunologic ED: Denies mouth swelling, tongue swelling or urticaria EXAM Physical Exam Const Vital Signs: 08/10/24 03:31 Temperature 98.2 F Temperature Source Oral Pulse Rate 87 Respiratory Rate 16 Blood Pressure 171/88 H Blood Pressure Mean 115 Pulse Ox 96 Oxygen Delivery Method Room Air Positive well nourished and well developed General Appearance ED: well developed HEENT Reports normocephalic, head/scalp atraumatic and moist mucous membranes Eyes PERRL and EOMs intact bilaterally Neck no lymphadenopathy, supple and no JVD Resp normal respiratory effort and clear to auscultation bilaterally Cardio regular rate, regular rhythm and no murmurs GI normal to inspection, nondistended, normoactive bowel sounds and non-tender Palpation: soft Back/Spine no CVA tenderness and normal ROM Back/Spine Narrative: Patient is able to sit up on his own. There are some scabbed over rashes in the bilateral lower flanks that are nonspecific. He has no midline tenderness. He reports tenderness to palpation over the left lumbar paraspinal region without significant soft tissue texture changes. No cellulitic changes. Extremity normal to inspection General Extremety ED: Negative for edema General Extremity: Negative for edema Neuro oriented x3 and CN's II-XII intact bilaterally Neuro Narrative: He has normal dorsi flexion and plantarflexion of the toes. I do not appreciate any neurologic deficits. +2 dorsalis pedis and posterior tibial pulses bilaterally. Patient has +2 deep tendon reflexes of both the Achilles and the patellar reflexes bilaterally. He is able to sit on the side of the bed and raise his thighs up off the bed. He is able to ambulate into the room with the assistance of a cane. Sensorium / Orientation: alert Motor Exam: strength 5/5 throughout Psych mental status grossly normal Mood & Affect: Negative for depressed or tearful Skin no rashes or lesions noted and no wounds MDM MDM MDM Narrative Medical decision making narrative: Differential diagnosis includes lumbar radiculopathy cauda equina spinal stenosis acute on chronic back pain abscess is (epidural dural oh) hematoma I do not see soft tissue texture changes and he is afebrile so I do not think that this is going to be abscess. He does not have any acute neurologic deficits or recent injury which would make me suspicious enough to obtain advanced imaging. He does not have any known malignancies. He certainly at risk for some long-term problems given his previous CT and the fact that he is a diabetic and does have a history of alcohol abuse. However at the current point I am not seeing strong evidence that would warrant imaging. I will write for the patient to have a intramuscular dose of Toradol and Norflex here. I can write for some Flexeril and Percocet at home. I can refer him to spine surgery if he wishes their evaluation but would also urge primary care evaluation who would know his history best as the patient is not very forthcoming in any history taking History & Record Review Discussion w/independent historian: Patient Additional record(s) reviewed:: Prior ED visit and Prior labs Discharge Plan Triage Chief Complaint: Lower Extremity Injury ED Provider: Adam Allen Dx/Rx/DC Orders Clinical Impression: Lumbar radiculopathy, Back pain, Spinal stenosis Instructions: ED Sciatica Prescriptions: New cyclobenzaprine 10 mg tablet 10 mg PO TID PRN (Reason: Muscle Spasm) Qty: 15 0RF oxycodone-acetaminophen 5-325 mg tablet 1 tab PO Q6H PRN PRN (Reason: Pain) 3 Days Qty: 12 0RF No Action metformin 500 MG tablet 500 mg PO BID Patient Comments: diabetes insulin glargine [Lantus Solostar U-100 Insulin] 100 unit/mL (3 mL) Insulin Pen 10 unit SUBCUT BID glipizide 5 mg tablet 5 mg PO BID Rx Instructions: Hold if glucose less than 130 mg/dl ondansetron 4 mg tablet,disintegrating 4 mg PO Q8H PRN (Reason: nausea and vomiting) Qty: 10 0RF dicyclomine 20 mg tablet 20 mg PO TID PRN (Reason: abdominal cramping) Qty: 20 0RF diphenoxylate-atropine [Lomotil] 2.5-0.025 mg tablet 1 tab PO 4X/DAY PRN PRN (Reason: diarrhea) 5 Days Qty: 20 0RF meclizine 25 mg tablet 25 mg PO TID Qty: 30 0RF magnesium citrate [Citrate of Magnesia] Solution 300 ml PO DAILY PRN (Reason: constipation) Qty: 296 0RF Rx Instructions: Drink one half bottle if no bowel movement within 4 hours drink the second half of the bottle ibuprofen 600 mg tablet 600 mg PO Q8H PRN PRN (Reason: pain) Qty: 20 0RF hydrocortisone 1 % cream 1 applic topical TID PRN (Reason: skin irritation) Qty: 28.4 0RF levothyroxine 100 mcg tablet 100 mcg PO DAILY Patient Comments: Take 1 tab by mouth once daily on an empty stomach insulin glargine [Lantus U-100 Insulin] 100 unit/mL solution 1 unit subcut QPM polyethylene glycol 3350 [Miralax] 17 gram/dose powder 17 g PO DAILY Qty: 510 1RF Primary Care Provider: Linden Chavez Referrals: Oli An MD [Med Staff - Active Staff] - As soon as possible (for spinal surgery evaluation if you wish) Linden Chavez DO [Primary Care Provider] - 1-2 Weeks Print Language: Namibian Disposition Disposition: Home, Self Care
[2024-08-10] MEDS: Ketorolac 30 MG/ML Syringe IM (03:55)
[2024-08-10] MEDS: Orphenadrine 60 MG/2 ML Ampul IM (03:55)
[2024-08-10 04:16] VITALS: BP 154/83; PULSE 78; RESP 18; TEMP 36.6; O2SAT 98
== END 2024-08-10 04:20 | disposition home or self-care (01) ==
PROVIDERS: Emergency Provider Emergency Medicine; PCP Family Medicine; Visit Provider Emergency Medicine
DX: M54.16 Radiculopathy, lumbar region (principal); J44.9 Chronic obstructive pulmonary disease, unspecified; E11.9 Type 2 diabetes mellitus without complications; Z79.4 Long term (current) use of insulin; E78.00 Pure hypercholesterolemia, unspecified; I10 Essential (primary) hypertension; M48.00 Spinal stenosis, site unspecified; I25.2 Old myocardial infarction; Z79.84 Long term (current) use of oral hypoglycemic drugs; Z79.899 Other long term (current) drug therapy; Z95.5 Presence of coronary angioplasty implant and graft
CPT/HCPCS: 96372; 99282

== ENCOUNTER 2024-10-19 03:54 | Emergency (ER) | payer OTHER, MEDICAID, SELFPAY ==
[2024-10-19] VITALS (12 sets, daily range): BP systolic 107–163; BP diastolic 75–99; PULSE 71–82; RESP 11–22; TEMP 36.4–36.8; O2SAT 96–97; BMI 25.9
--- NOTE | 2024-10-19 04:09 | EKG12_ITS ---
Test Reason : DYSRHYTHMIA Blood Pressure : */* mmHG Vent. Rate : 73 BPM Atrial Rate : 73 BPM P-R Int : 198 ms QRS Dur : 100 ms QT Int : 408 ms P-R-T Axes : 47 -61 36 degrees QTcB Int : 449 ms Normal sinus rhythm Incomplete right bundle branch block Left anterior fascicular block Abnormal ECG Confirmed by TESSA TRACY, MENDY ([id number]), content editor JADEN HERNANDEZ ([id number]) on 10/19/2024 8:17:03 AM Referred By: Confirmed By: MENDY ZARATE MD
--- NOTE | 2024-10-19 04:20 | EX.ED.DYSGE1 ---
HPI History of Present Illness Chief Complaint: General Illness Informant: patient Narrative Narrative: 64-year-old male very poor historian presents at 4 AM because 20 minutes ago while he was watching TV he suddenly started feeling poorly. He states he had no other new symptoms but he did feel like maybe he would pass out. He does not feel like that right now so when I asked him how long that lasted, he states about an hour. 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 Esophageal candidiasis Current use of insulin Back pain due to injury Restless legs Injury of head and neck COPD (chronic obstructive pulmonary disease) High cholesterol History of stress test Depression Chronic pain Non-smoker Sleep apnea Diabetes Hyperlipidemia Hypertension Myocardial infarct Home Medications ?Medication ?Instructions ?Recorded ?Last Taken ?Type metformin 500 mg tablet,extended 500 mg PO BID diabetes 05/02/19 03/18/22 History release 24 hr glipizide 5 mg tablet 5 mg PO BID diabetes 03/19/22 03/18/22 History insulin glargine 100 unit/mL (3 10 unit subcut BID diabetes 03/19/22 03/18/22 History mL) subcutaneous pen (Lantus Solostar U-100 Insulin) ondansetron 4 mg disintegrating 4 mg PO Q8H PRN nausea and 04/26/22 Unknown Rx tablet vomiting #10 tabs dicyclomine 20 mg tablet 20 mg PO TID PRN abdominal 08/07/22 Unknown Rx cramping #20 tabs diphenoxylate-atropine 2.5 1 tab PO 4X/DAY PRN PRN diarrhea 5 10/30/22 Unknown Rx mg-0.025 mg tablet (Lomotil) days #20 tabs hydrocortisone 1 % topical cream 1 applic topical TID PRN skin 08/26/23 Unknown Rx irritation #28.4 grams ibuprofen 600 mg tablet 600 mg PO Q8H PRN PRN pain #20 08/26/23 Unknown Rx TABLETS insulin glargine 100 unit/mL 1 unit subcut QPM 09/29/23 Unknown History subcutaneous solution (Lantus U-100 Insulin) levothyroxine 100 mcg tablet 100 mcg PO DAILY 09/29/23 Unknown History magnesium citrate (Citrate of 300 ml PO DAILY PRN constipation 12/08/23 Unknown Rx Magnesia oral) #296 mL meclizine 25 mg tablet 25 mg PO TID #30 tabs 12/08/23 Unknown Rx cyclobenzaprine 10 mg tablet 10 mg PO TID PRN Muscle Spasm #15 08/10/24 Unknown Rx TABLETS polyethylene glycol 3350 17 17 g PO DAILY PRN constipation 10/19/24 Unknown History gram/dose oral powder (Miralax) Allergy/AdvReac Type Severity Reaction Status Date / Time diphenhydramine HCl (From Allergy Rash Verified 10/19/24 03:57 Benadryl) Penicillins Allergy Rash Verified 10/19/24 03:57 venom-honey bee (bee venom Allergy Swelling Verified 10/19/24 03:57 (honey bee)) Surgical History Hx of left knee surgery Hx of inguinal herniorrhaphy History of coronary artery stent placement Social History household members: none Smoking Status: Never smoker substance use type: does not use ROS ROS ED Constitutional Constitutional ED: Denies chills or fever(s) Eyes Eyes: Denies change in vision or diplopia ENT ENT ED: Denies rhinorrhea or sore throat Cardiovascular Cardiovascular: Denies chest pain or palpitations Respiratory/Chest Respiratory/Chest: Reports cough and dyspnea on exertion Gastrointestinal Gastrointestinal: Denies abdominal pain, diarrhea, nausea or vomiting Genitourinary Genitourinary ED: Denies dysuria or hematuria Musculoskeletal Musculoskeletal: Denies neck pain Integumentary Denies abscess or rash Neurologic Neurologic: Denies headache(s), paresthesias or weakness EXAM Physical Exam Const Vital Signs: 10/19/24 03:58 10/19/24 03:58 10/19/24 04:00 Temperature 97.5 F L Temperature Source Oral Pulse Rate 74 75 77 Respiratory Rate 19 H 13 21 H Blood Pressure 163/97 H 143/85 H Blood Pressure Mean 119 102 Pulse Ox 97 Oxygen Delivery Method Room Air 10/19/24 04:15 10/19/24 04:30 10/19/24 04:48 Temperature Temperature Source Pulse Rate 73 78 Respiratory Rate 22 H 18 Blood Pressure 131/81 H 150/92 H Blood Pressure Mean 96 109 Pulse Ox Oxygen Delivery Method 10/19/24 04:52 10/19/24 05:00 10/19/24 05:15 Temperature Temperature Source Pulse Rate 77 82 71 Respiratory Rate 11 L 21 H 16 Blood Pressure 134/88 H 142/87 H Blood Pressure Mean 103 104 Pulse Ox Oxygen Delivery Method 10/19/24 05:30 10/19/24 05:45 10/19/24 06:00 Temperature Temperature Source Pulse Rate 79 75 72 Respiratory Rate 17 16 20 H Blood Pressure 144/99 H 133/85 H Blood Pressure Mean 113 100 Pulse Ox Oxygen Delivery Method Positive well nourished and well developed General Appearance ED: well developed and NAD HEENT Reports moist mucous membranes normocephalic and atraumatic Eyes PERRL and EOMs intact bilaterally Neck full ROM and supple Chest Wall inspection of chest normal and palpation of chest normal Resp normal respiratory effort and clear to auscultation bilaterally Resp Narrative: Symmetrically diminished, clear throughout Effort and Inspection: able to speak in complete sentences Cardio regular rate, regular rhythm and no murmurs Rate: Negative for bradycardia or tachycardic GI non-tender and non-distended Auscultation: normoactive bowel sounds Palpation: soft Back/Spine no CVA tenderness General Back: other FROM Extremity normal to inspection General Extremety ED: Negative for edema, pulses abnormal or tenderness General Extremity: Negative for edema or pulses abnormal Neuro oriented x3, CN's II-XII intact bilaterally, no sensory deficits noted and gait normal Neuro Narrative: No aphasia or dysarthria Sensorium / Orientation: awake and alert Motor Exam: strength 5/5 throughout Psych Psych Narrative: Flat affect Skin no rashes or lesions noted and no wounds MDM MDM MDM Narrative Medical decision making narrative: Broad differential in this patient who states he suddenly started feeling poorly, but has normal vital signs here and is walking and breathing normally. Cardiopulmonary etiologies considered, he has had this happen before with hyperglycemia so we checked her blood sugar; it is 504. This is probably the cause of his symptoms. As result he is given a bolus of IV fluids as well as subcutaneous insulin lispro to help bring his blood sugar down, ensure hydration while we work him up for infections. He is giving me no information about his recent diet and if this could be related to what he ate; I try not to eat sugar. The rest of his workup is unremarkable. Two-view chest x-ray my interpretation shows chronic COPD-related findings including some scarring in the right lower lobe, no acute consolidation, infiltrate, pneumothorax. EKG is normal. Clinically he does not have a decreased level of consciousness or any acute hyperosmolar state. Over the course of the next couple hours got his blood sugar down, hydrated up, and he is feeling better and stable for discharge. Repeat blood sugar 263. Lab Data Attestation: I reviewed the patient's lab results. Labs: Laboratory Results - last 24 hr 10/19/24 10/19/24 10/19/24 04:15 04:28 04:31 WBC 8.0 RBC 5.49 Hgb 15.6 Hct 43.9 MCV 80.0 MCH 28.4 MCHC 35.5 RDW Std Deviation 38.4 RDW Coeff of Manjinder 13.2 Plt Count 150 MPV 10.0 Immature Gran % (Auto) 0.300 Neut % (Auto) 59.1 Lymph % (Auto) 30.0 [place] % (Auto) 6.6 Eos % (Auto) 3.0 Baso % (Auto) 1.0 Absolute Neuts (auto) 4.7 Absolute Lymphs (auto) 2.40 Nucleated RBC % 0 Differential Comment SCANNED Platelet Estimate ADEQUATE RBC Morphology NORM C+C Sodium 130 L Potassium 3.7 Chloride 99 Carbon Dioxide 26.0 Anion Gap 5 BUN 15 Creatinine 1.02 Estim Creat Clear Calc 92.21 Est GFR (MDRD) Af Amer 94 Est GFR (MDRD) Non-Af 78 BUN/Creatinine Ratio 14.7 Glucose 494 H* Calcium 8.8 Troponin I High Sens < 3 L Urine Color Yellow Urine Clarity Clear Urine pH 6.5 Ur Specific [place] 1.010 Urine Protein Negative Urine Glucose (UA) 1000 H Urine Ketones Negative Urine Occult Blood Negative Urine Nitrite Negative Urine Bilirubin Negative Urine Urobilinogen Normal Ur Leukocyte Esterase Negative Urine RBC 0 SEEN Urine WBC 0 SEEN Ur Squamous Epith Cells 0-5 SEEN Urine Bacteria 0 SEEN Urine Mucus 0 SEEN POC Glucose > 500 H* 10/19/24 05:53 WBC RBC Hgb Hct MCV MCH MCHC RDW Std Deviation RDW Coeff of Manjinder Plt Count MPV Immature Gran % (Auto) Neut % (Auto) Lymph % (Auto) [place] % (Auto) Eos % (Auto) Baso % (Auto) Absolute Neuts (auto) Absolute Lymphs (auto) Nucleated RBC % Differential Comment Platelet Estimate RBC Morphology Sodium Potassium Chloride Carbon Dioxide Anion Gap BUN Creatinine Estim Creat Clear Calc Est GFR (MDRD) Af Amer Est GFR (MDRD) Non-Af BUN/Creatinine Ratio Glucose Calcium Troponin I High Sens Urine Color Urine Clarity Urine pH Ur Specific [place] Urine Protein Urine Glucose (UA) Urine Ketones Urine Occult Blood Urine Nitrite Urine Bilirubin Urine Urobilinogen Ur Leukocyte Esterase Urine RBC Urine WBC Ur Squamous Epith Cells Urine Bacteria Urine Mucus POC Glucose 353 H Radiography Diagnostic Testing: Clinical Impression(s) from Imaging Studies Chest X-Ray 10/19/24 04:45 IMPRESSION: No change or acute disease. Electronically Signed: Johann Aldrich MD at 5:34 EST Reading Location ID and State: [address] [address] Tel , Service support , Rhythm Strip Rhythm Strip: Sinus Rhythm Rate: 75 Ectopy: None EKG Initial EKG: Attestation: I personally reviewed and interpreted this EKG as follows: Interpretation: Sinus Rhythm, No Acute Injury Pattern and LAFB Prior EKG tracings: available for review Prior: Unchanged Discharge Plan Triage Chief Complaint: General Illness ED Provider: Live Ashley Dx/Rx/DC Orders Clinical Impression: Hyperglycemia due to type 2 diabetes mellitus Instructions: ED Diabetic Hyperglycemia Prescriptions: No Action metformin 500 MG tablet 500 mg PO BID Patient Comments: diabetes insulin glargine [Lantus Solostar U-100 Insulin] 100 unit/mL (3 mL) Insulin Pen 10 unit SUBCUT BID glipizide 5 mg tablet 5 mg PO BID Rx Instructions: Hold if glucose less than 130 mg/dl ondansetron 4 mg tablet,disintegrating 4 mg PO Q8H PRN (Reason: nausea and vomiting) Qty: 10 0RF dicyclomine 20 mg tablet 20 mg PO TID PRN (Reason: abdominal cramping) Qty: 20 0RF diphenoxylate-atropine [Lomotil] 2.5-0.025 mg tablet 1 tab PO 4X/DAY PRN PRN (Reason: diarrhea) 5 Days Qty: 20 0RF meclizine 25 mg tablet 25 mg PO TID Qty: 30 0RF magnesium citrate [Citrate of Magnesia] Solution 300 ml PO DAILY PRN (Reason: constipation) Qty: 296 0RF Rx Instructions: Drink one half bottle if no bowel movement within 4 hours drink the second half of the bottle ibuprofen 600 mg tablet 600 mg PO Q8H PRN PRN (Reason: pain) Qty: 20 0RF hydrocortisone 1 % cream 1 applic topical TID PRN (Reason: skin irritation) Qty: 28.4 0RF levothyroxine 100 mcg tablet 100 mcg PO DAILY Patient Comments: Take 1 tab by mouth once daily on an empty stomach insulin glargine [Lantus U-100 Insulin] 100 unit/mL solution 1 unit subcut QPM cyclobenzaprine 10 mg tablet 10 mg PO TID PRN (Reason: Muscle Spasm) Qty: 15 0RF polyethylene glycol 3350 [Miralax] 17 gram/dose powder 17 g PO DAILY PRN (Reason: constipation) Primary Care Provider: Linden Chavez Referrals: Linden Chavez DO [Primary Care Provider] - As soon as possible Print Language: Maori Disposition Disposition: Home, Self Care
[2024-10-19 04:22] LABS: Absolute Neutrophil Count 4.7 X10^3/uL (2.0-7.7); Basophil# 0.08 X10^3/uL; Eosinophil# 0.24 X10^3/uL; Hematocrit 43.9 % (40-54); Hemoglobin 15.6 g/dL (13.0-16.5); Mean Corp Hgb Conc 35.5 g/dL (32-36); Mean Corpuscular Hgb 28.4 pg (27.0-32.0); Monocyte# 0.53 X10^3/uL; Monocyte% 6.6 % (0-10); NRBC Flagged by Analyzer 0 % (0-5); Neutrophil # 4.72 X10^3/uL (2.7-7.7); Neutrophil % 59.1 % (47-70); POSITIVE COUNT YES; Platelet Count 150 K/mm3 (150-450); RBC Distribution Width CV 13.2 % (11.6-14.6); RBC Distribution Width SD 38.4 fl (35.1-43.9); Red Blood Count 5.49 M/mm3 (4.6-6.2)
[2024-10-19 04:23] LABS: Differential Indicated SCAN CRITERIA MET
[2024-10-19 04:39] LABS: Bacteria 0 SEEN /hpf (None Seen); Mucous, Urine 0 SEEN /hpf (<or=2+); Red Blood Cells-Urine 0 SEEN /hpf (0-5); White Blood Cells 0 SEEN /hpf (0-5)
[2024-10-19 04:40] LABS: Color, Urine Yellow (Yellow); Glucose, Dipstick 1000 mg/dl (Normal); Ketone-Dipstick Negative (Negative); Leukocyte Esterase-Dipstick Negative /ul (Negative); Nitrite-Dipstick Negative (Negative); Occult Blood-Urine Negative /ul (Negative); Protein-Dipstick Negative (Negative); Urine Bilirubin Dipstick Negative (Negative); Urine Clarity Clear (Clear); Urine Urobilinogen Normal (Normal); Urine pH 6.5 (5.0 - 8.0)
[2024-10-19 04:43] LABS: Anion Gap 5 (5-15); BUN 15 mg/dL (7-18); BUN/Creat Ratio 14.7 RATIO (10-20); Calcium,Total 8.8 mg/dL (8.5-10.1); Chloride 99 mmol/L (98-107); Creatinine, Serum 1.02 mg/dL (0.70-1.30); EST Glomerular Filtration Rate 78 mL/min (>60); Est Glom Filt Rate - Afr Amer 94 mL/min (>60); Estimated Creatinine Clearance 92.21 ml/min; Glucose 494 mg/dL (74-106); Potassium 3.7 mmol/L (3.5-5.1); Sodium Level 130 mmol/L (136-145); Troponin-I HS < 3 pg/mL (3.0-78.0)
[2024-10-19 04:45] LABS: Squamous Epithelial Cells - UA 0-5 SEEN /hpf (0-5)
--- NOTE | 2024-10-19 04:45 | RAD_ITS ---
EXAM: XR CHEST, 2 VIEWS CLINICAL INDICATION: cough, copd TECHNIQUE: Frontal and lateral views of the chest. COMPARISON: May 08, 2024. FINDINGS: LUNGS AND PLEURAL SPACES: Scarring at the right lower lung redemonstrated. No pneumothorax. No effusion. No consolidation. HEART: Unremarkable. Cardiac silhouette not enlarged. MEDIASTINUM: Central airways and mediastinal contour are unremarkable. BONES/JOINTS: Unremarkable. No acute fracture. SOFT TISSUES: Unremarkable. RAD/Chest PA and Lateral IMPRESSION: No change or acute disease. Electronically Signed: Johann Aldrich MD at 5:34 EST ,
[2024-10-19 04:49] LABS: Bedside Glucose > 500 mg/dL (74-106)
[2024-10-19] MEDS: Insulin Lispro 100 UNIT/ML INSULN.PEN 20 UNIT SC (04:53)
[2024-10-19] MEDS: 0.9% Normal Saline (500mL Bag) 500 ML 999 ML IV ×2 (04:54→06:43)
[2024-10-19 05:02] LABS: Differential Comment SCANNED; Platelet Estimate ADEQUATE (ADEQ); Red Cell Morphology NORM C+C NORMAL (NORM C&C)
[2024-10-19 06:11] LABS: Bedside Glucose 353 mg/dL (74-106)
[2024-10-19 07:03] LABS: Bedside Glucose 263 mg/dL (74-106)
== END 2024-10-19 06:51 | disposition home or self-care (01) ==
PROVIDERS: Emergency Provider Emergency Medicine; PCP Family Medicine; Visit Provider Emergency Medicine
DX: E11.65 Type 2 diabetes mellitus with hyperglycemia (principal); J44.9 Chronic obstructive pulmonary disease, unspecified; Z79.4 Long term (current) use of insulin; I10 Essential (primary) hypertension; Z79.84 Long term (current) use of oral hypoglycemic drugs; Z79.899 Other long term (current) drug therapy
CPT/HCPCS: 71046; 80048; 81001; 82962; 84484; 85025; 93005; 96360; 99283; A4216

== ENCOUNTER 2024-10-29 21:38 | Emergency (ER) | payer OTHER, MEDICAID, SELFPAY ==
[2024-10-29 21:46] VITALS: BP 123/64; PULSE 82; RESP 16; TEMP 36.8; O2SAT 96
[2024-10-29 23:39] VITALS: BP 114/68; PULSE 66; RESP 18; O2SAT 95
--- NOTE | 2024-10-29 23:59 | RAD_ITS ---
INDICATION: weakness EXAMINATION/TECHNIQUE: X-RAY - XR Chest 1 View COMPARISON: CR Chest Oct 19 2024 4:46am FINDINGS: LINES/DEVICES: None. LUNGS: No consolidation, edema or effusion. No pneumothorax. Subsegmental atelectasis in the right lung base. MEDIASTINUM AND CARDIOVASCULAR STRUCTURES: Cardiac silhouette not enlarged. Central airways and mediastinal contour are unremarkable. BONES AND SOFT TISSUES: Unremarkable. RAD/Chest 1 View (Portable) IMPRESSION: No radiographic evidence of acute cardiopulmonary disease. Electronically Signed: Dina Tsang MD at 1:07 EST ,
[2024-10-30 00:18] LABS: Bacteria 0 SEEN /hpf (None Seen); Mucous, Urine 0 SEEN /hpf (<or=2+); Red Blood Cells-Urine 0 SEEN /hpf (0-5); Squamous Epithelial Cells - UA 0 SEEN /hpf (0-5); White Blood Cells 0 SEEN /hpf (0-5)
[2024-10-30 00:20] LABS: Absolute Lymphocyte Count 1.53 X10^3/uL (0.83-4.51); Absolute Neutrophil Count 4.5 X10^3/uL (2.0-7.7); Basophil# 0.03 X10^3/uL; Basophil% 0.4 % (0-1); Eosinophil# 0.24 X10^3/uL; Eosinophils% 3.5 % (0-5); Hematocrit 39.5 % (40-54); Hemoglobin 14.2 g/dL (13.0-16.5); Lymphocyte # 1.53 X10^3/ul (0.83-4.51); Lymphocyte % 22.4 % (19-41); Mean Corp Hgb Conc 35.9 g/dL (32-36); Mean Corpuscular Volume 80.6 fL (80-94); Mean Platelet Vol. 9.1 fl (6.2-12.0); Monocyte# 0.49 X10^3/uL; Monocyte% 7.2 % (0-10); NRBC Flagged by Analyzer 0 % (0-5); Neutrophil % 65.9 % (47-70); Platelet Count 158 K/mm3 (150-450); RBC Distribution Width CV 13.2 % (11.6-14.6); RBC Distribution Width SD 38.2 fl (35.1-43.9); White Blood Count 6.8 K/mm3 (4.4-11.0)
[2024-10-30 00:21] LABS: Color, Urine Yellow (Yellow); Glucose, Dipstick 1000 mg/dl (Normal); Ketone-Dipstick 5 mg/dl (Negative); Leukocyte Esterase-Dipstick Negative /ul (Negative); Nitrite-Dipstick Negative (Negative); Occult Blood-Urine Negative /ul (Negative); Protein-Dipstick 15 mg/dl (Negative); Specific Gravity, Urine 1.015 (1.002-1.030); Urine Bilirubin Dipstick Negative (Negative); Urine Clarity Clear (Clear); Urine Urobilinogen Normal (Normal)
[2024-10-30 00:33] LABS: Anion Gap 7 (5-15); BUN 19 mg/dL (7-18); BUN/Creat Ratio 21.2 RATIO (10-20); Chloride 101 mmol/L (98-107); EST Glomerular Filtration Rate 91 mL/min (>60); Est Glom Filt Rate - Afr Amer 110 mL/min (>60); Glucose 361 mg/dL (74-106); Magnesium 1.5 mg/dL (1.6-2.6); Potassium 3.8 mmol/L (3.5-5.1); Sodium Level 136 mmol/L (136-145)
[2024-10-30 01:00] VITALS: BP 128/90; PULSE 79; RESP 15; O2SAT 94
[2024-10-30 03:00] VITALS: BP 103/89; PULSE 77; RESP 18; O2SAT 95
[2024-10-30 03:11] VITALS: BP 103/89; PULSE 77; RESP 18; TEMP 36.3; O2SAT 95
--- NOTE | 2024-10-30 03:18 | EDS_ITS ---
HPI History of Present Illness Chief Complaint: Weakness Informant: patient and EMS Narrative Narrative: Patient is a 64-year-old male with history of insulin-dependent diabetes hypertension hyperlipidemia and hypothyroidism. He states that he just feels weak. He states he cannot expound upon his weakness any further than that and denies fevers or chills nausea vomiting diarrhea or dysuria. 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 Esophageal candidiasis Current use of insulin Back pain due to injury Restless legs Injury of head and neck COPD (chronic obstructive pulmonary disease) High cholesterol History of stress test Depression Chronic pain Non-smoker Sleep apnea Diabetes Hyperlipidemia Hypertension Myocardial infarct Home Medications ?Medication ?Instructions ?Recorded ?Last Taken ?Type metformin 500 mg tablet,extended 500 mg PO BID diabetes 05/02/19 03/18/22 History release 24 hr glipizide 5 mg tablet 5 mg PO BID diabetes 03/19/22 03/18/22 History insulin glargine 100 unit/mL (3 10 unit subcut BID diabetes 03/19/22 03/18/22 History mL) subcutaneous pen (Lantus Solostar U-100 Insulin) ondansetron 4 mg disintegrating 4 mg PO Q8H PRN nausea and 04/26/22 Unknown Rx tablet vomiting #10 tabs dicyclomine 20 mg tablet 20 mg PO TID PRN abdominal 08/07/22 Unknown Rx cramping #20 tabs diphenoxylate-atropine 2.5 1 tab PO 4X/DAY PRN PRN diarrhea 5 10/30/22 Unknown Rx mg-0.025 mg tablet (Lomotil) days #20 tabs hydrocortisone 1 % topical cream 1 applic topical TID PRN skin 08/26/23 Unknown Rx irritation #28.4 grams ibuprofen 600 mg tablet 600 mg PO Q8H PRN PRN pain #20 08/26/23 Unknown Rx TABLETS insulin glargine 100 unit/mL 1 unit subcut QPM 09/29/23 Unknown History subcutaneous solution (Lantus U-100 Insulin) levothyroxine 100 mcg tablet 100 mcg PO DAILY 09/29/23 Unknown History magnesium citrate (Citrate of 300 ml PO DAILY PRN constipation 12/08/23 Unknown Rx Magnesia oral) #296 mL meclizine 25 mg tablet 25 mg PO TID #30 tabs 12/08/23 Unknown Rx cyclobenzaprine 10 mg tablet 10 mg PO TID PRN Muscle Spasm #15 08/10/24 Unknown Rx TABLETS polyethylene glycol 3350 17 17 g PO DAILY PRN constipation 10/19/24 Unknown History gram/dose oral powder (Miralax) Allergy/AdvReac Type Severity Reaction Status Date / Time diphenhydramine HCl (From Allergy Rash Verified 10/29/24 21:48 Benadryl) Penicillins Allergy Rash Verified 10/29/24 21:48 venom-honey bee (bee venom Allergy Swelling Verified 10/29/24 21:48 (honey bee)) Surgical History Hx of left knee surgery Hx of inguinal herniorrhaphy History of coronary artery stent placement Social History household members: none Smoking Status: Never smoker substance use type: does not use ROS ROS ED Constitutional Constitutional ED: Denies chills or fever(s) Eyes Eyes: Denies change in vision ENT ENT ED: Denies sore throat Cardiovascular Cardiovascular: Denies chest pain Respiratory/Chest Respiratory/Chest: Denies cough or dyspnea Gastrointestinal Gastrointestinal: Denies abdominal pain, diarrhea, nausea or vomiting Genitourinary Genitourinary ED: Denies dysuria Musculoskeletal Musculoskeletal: Denies myalgias Integumentary Denies rash Neurologic Neurologic: Reports weakness; Denies headache(s) Hematologic/Lymphatic Hematologic/Lymphatic: Denies easy bleeding or easy bruising EXAM Physical Exam Const Vital Signs: 10/29/24 21:46 10/29/24 23:39 10/30/24 00:19 Temperature 98.2 F Temperature Source Oral Pulse Rate 82 66 Respiratory Rate 16 18 Respiratory Effort Normal Non-Labored Respiratory Pattern Normal Blood Pressure 123/64 H 114/68 Blood Pressure Mean 83 83 Pulse Ox 96 95 Oxygen Delivery Method Room Air Room Air 10/30/24 01:00 10/30/24 03:00 10/30/24 03:11 Temperature 97.4 F L Temperature Source Pulse Rate 79 77 77 Respiratory Rate 15 18 18 Respiratory Effort Respiratory Pattern Blood Pressure 128/90 H 103/89 H 103/89 H Blood Pressure Mean 102 93 93 Pulse Ox 94 95 95 Oxygen Delivery Method Room Air Room Air Positive well nourished and well developed General Appearance ED: well developed; Negative for pallor HEENT Reports moist mucous membranes HEENT Narrative: No tongue or lip swelling no oral lesions no airway edema or compromise No secondary findings in the posterior pharynx to suggest infection Eyes PERRL and EOMs intact bilaterally General Eye ED: Negative for scleral icterus Neck supple Neck Narrative: No nuchal rigidity or meningeal signs Resp normal respiratory effort and clear to auscultation bilaterally Cardio regular rate and regular rhythm Rate: other Other Details: Radial and carotid pulses are equal and symmetric GI normal to inspection, nondistended, normoactive bowel sounds, non-tender, non- distended and no masses GI Narrative: No voluntary guarding or rigidity or pulsatile mass Auscultation: normoactive bowel sounds Palpation: soft Extremity normal to inspection Neuro oriented x3, CN's II-XII intact bilaterally and no sensory deficits noted Neuro Narrative: Cranial nerves II through XII are grossly intact there are no focal neurologic deficits No pronator drift no dysmetria no truncal ataxia NIH stroke scale score of 0 GCS of 15 Sensorium / Orientation: alert Motor Exam: strength 5/5 throughout Psych mental status grossly normal Skin no rashes or lesions noted Skin Narrative: No soft tissue changes to suggest trauma or infection General Skin Exam: Negative for jaundice or pallor MDM MDM MDM Narrative Medical decision making narrative: Patient arrived to the ER with stable vitals and reported sensation of generalized weakness. He could not expound upon the weakness or report any other associated symptoms such as nausea vomiting diarrhea or dysuria. In order to ensure he is not developing a secondary infection such as UTI COVID influenza RSV or pneumonia I did like to perform basic laboratory studies. The patient does not have acute blood loss anemia he does not have acute kidney injury there are no signs of DKA or HHS. There are no clinically significant electrolyte abnormality. His viral swab is negative and urine shows no sign of infection. Chest x-ray revealed no acute lung pathology. Therefore at this time as vitals are stable and overall workup is negative I do not feel there is need for further evaluation in the ER and patient is otherwise safe for discharge History & Record Review Discussion w/independent historian: Patient Lab Data Attestation: I reviewed the patient's lab results. Labs: Laboratory Results - last 24 hr 10/30/24 00:05 WBC 6.8 RBC 4.90 Hgb 14.2 Hct 39.5 L MCV 80.6 MCH 29.0 MCHC 35.9 RDW Std Deviation 38.2 RDW Coeff of Manjinder 13.2 Plt Count 158 MPV 9.1 Immature Gran % (Auto) 0.600 Neut % (Auto) 65.9 Lymph % (Auto) 22.4 [place] % (Auto) 7.2 Eos % (Auto) 3.5 Baso % (Auto) 0.4 Absolute Neuts (auto) 4.5 Absolute Lymphs (auto) 1.53 Nucleated RBC % 0 Sodium 136 Potassium 3.8 Chloride 101 Carbon Dioxide 29.0 Anion Gap 7 BUN 19 H Creatinine 0.90 Est GFR (MDRD) Af Amer 110 Est GFR (MDRD) Non-Af 91 BUN/Creatinine Ratio 21.2 H Glucose 361 H Calcium 9.0 Magnesium 1.5 L Urine Color Yellow Urine Clarity Clear Urine pH 6.0 Ur Specific [place] 1.015 Urine Protein 15 H Urine Glucose (UA) 1000 H Urine Ketones 5 H Urine Occult Blood Negative Urine Nitrite Negative Urine Bilirubin Negative Urine Urobilinogen Normal Ur Leukocyte Esterase Negative Urine RBC 0 SEEN Urine WBC 0 SEEN Ur Squamous Epith Cells 0 SEEN Urine Bacteria 0 SEEN Urine Mucus 0 SEEN Radiography Diagnostic Testing: Clinical Impression(s) from Imaging Studies Chest X-Ray 10/29/24 23:59 IMPRESSION: No radiographic evidence of acute cardiopulmonary disease. Electronically Signed: Dina Tsang MD at 1:07 EST Reading Location ID and State: [facility] / [place] Tel , Service support , Chest x-ray as interpreted by the emergency medicine physician reveals no acute infiltrate pneumothorax or pleural effusion Discharge Plan Triage Chief Complaint: Weakness ED Provider: Johann Lemons Dx/Rx/DC Orders Clinical Impression: Generalized weakness, DM (diabetes mellitus), Essential hypertension, HLD (hyperlipidemia), Hypothyroidism Instructions: ED Weakness (Uncertain Cause) Prescriptions: No Action metformin 500 MG tablet 500 mg PO BID Patient Comments: diabetes insulin glargine [Lantus Solostar U-100 Insulin] 100 unit/mL (3 mL) Insulin Pen 10 unit SUBCUT BID glipizide 5 mg tablet 5 mg PO BID Rx Instructions: Hold if glucose less than 130 mg/dl ondansetron 4 mg tablet,disintegrating 4 mg PO Q8H PRN (Reason: nausea and vomiting) Qty: 10 0RF dicyclomine 20 mg tablet 20 mg PO TID PRN (Reason: abdominal cramping) Qty: 20 0RF diphenoxylate-atropine [Lomotil] 2.5-0.025 mg tablet 1 tab PO 4X/DAY PRN PRN (Reason: diarrhea) 5 Days Qty: 20 0RF meclizine 25 mg tablet 25 mg PO TID Qty: 30 0RF magnesium citrate [Citrate of Magnesia] Solution 300 ml PO DAILY PRN (Reason: constipation) Qty: 296 0RF Rx Instructions: Drink one half bottle if no bowel movement within 4 hours drink the second half of the bottle ibuprofen 600 mg tablet 600 mg PO Q8H PRN PRN (Reason: pain) Qty: 20 0RF hydrocortisone 1 % cream 1 applic topical TID PRN (Reason: skin irritation) Qty: 28.4 0RF levothyroxine 100 mcg tablet 100 mcg PO DAILY Patient Comments: Take 1 tab by mouth once daily on an empty stomach insulin glargine [Lantus U-100 Insulin] 100 unit/mL solution 1 unit subcut QPM cyclobenzaprine 10 mg tablet 10 mg PO TID PRN (Reason: Muscle Spasm) Qty: 15 0RF polyethylene glycol 3350 [Miralax] 17 gram/dose powder 17 g PO DAILY PRN (Reason: constipation) Primary Care Provider: Linden Chavez Referrals: Linden Chavez, [Primary Care Provider] - Activity Restrictions/Additional Instructions: Your workup showed no obvious reason for your generalized weakness. Please con tinue all of your home medications as directed by your doctor and return to the ER should you have any further concerns Print Language: Turkish Disposition Disposition: Home, Self Care Discharge Date/Time: 10/30/24 03:29
== END 2024-10-30 03:29 | disposition home or self-care (01) ==
PROVIDERS: Emergency Provider Emergency Medicine; PCP Family Medicine; Visit Provider Emergency Medicine
DX: R53.1 Weakness (principal); J44.9 Chronic obstructive pulmonary disease, unspecified; E11.9 Type 2 diabetes mellitus without complications; E03.9 Hypothyroidism, unspecified; E78.5 Hyperlipidemia, unspecified; I10 Essential (primary) hypertension; G47.30 Sleep apnea, unspecified; I25.2 Old myocardial infarction; Z95.5 Presence of coronary angioplasty implant and graft
CPT/HCPCS: 71045; 80048; 81001; 83735; 85025; 87631; 99284; A4216

== ENCOUNTER 2024-11-27 13:00 | Emergency (ER) | payer OTHER, MEDICAID, SELFPAY ==
[2024-11-27 13:00] VITALS: BP 103/68; PULSE 74; RESP 16; TEMP 36.4; O2SAT 94
[2024-11-27 13:57] LABS: Absolute Lymphocyte Count 1.51 X10^3/uL (0.83-4.51); Absolute Neutrophil Count 6.6 X10^3/uL (2.0-7.7); Basophil# 0.06 X10^3/uL; Basophil% 0.7 % (0-1); Eosinophil# 0.25 X10^3/uL; Eosinophils% 2.8 % (0-5); Hematocrit 41.1 % (40-54); Hemoglobin 14.2 g/dL (13.0-16.5); Lymphocyte # 1.51 X10^3/ul (0.83-4.51); Lymphocyte % 16.8 % (19-41); Mean Corp Hgb Conc 34.5 g/dL (32-36); Mean Corpuscular Hgb 28.2 pg (27.0-32.0); Mean Corpuscular Volume 81.7 fL (80-94); Mean Platelet Vol. 9.3 fl (6.2-12.0); Monocyte# 0.49 X10^3/uL; Monocyte% 5.5 % (0-10); NRBC Flagged by Analyzer 0 % (0-5); Neutrophil # 6.63 X10^3/uL (2.7-7.7); Neutrophil % 73.9 % (47-70); Platelet Count 231 K/mm3 (150-450); RBC Distribution Width CV 14.2 % (11.6-14.6); RBC Distribution Width SD 41.3 fl (35.1-43.9); Red Blood Count 5.03 M/mm3 (4.6-6.2)
[2024-11-27 14:06] LABS: Mucous, Urine 0 SEEN /hpf (<or=2+)
[2024-11-27 14:15] LABS: Color, Urine Yellow (Yellow); Glucose, Dipstick 1000 mg/dl (Normal); Ketone-Dipstick Negative (Negative); Leukocyte Esterase-Dipstick Negative /ul (Negative); Nitrite-Dipstick Negative (Negative); Occult Blood-Urine 10 /ul (Negative); Protein-Dipstick 30 mg/dl (Negative); Urine Bilirubin Dipstick Negative (Negative); Urine Clarity Clear (Clear); Urine Urobilinogen Normal (Normal)
[2024-11-27 14:25] LABS: AST(SGOT) 11 U/L (15-37); Alanine Aminotransfer ALT/SGPT 16 U/L (16-61); Albumin, Serum 3.6 g/dL (3.2-5.0); Alkaline Phosphatase 107 U/L (45-117); Anion Gap 10 (5-15); BUN 12 mg/dL (7-18); BUN/Creat Ratio 12.7 RATIO (10-20); Calcium,Total 8.8 mg/dL (8.5-10.1); Chloride 101 mmol/L (98-107); Creatinine, Serum 0.94 mg/dL (0.70-1.30); EST Glomerular Filtration Rate 86 mL/min (>60); Est Glom Filt Rate - Afr Amer 103 mL/min (>60); Globulin 3.7 g/dL (2.2-4.2); Glucose 373 mg/dL (74-106); Lipase 23 U/L (13-75); Potassium 3.8 mmol/L (3.5-5.1); Protein, Total 7.3 g/dL (6.4-8.2); Sodium Level 133 mmol/L (136-145)
[2024-11-27 14:37] LABS: Bacteria RARE /hpf (None Seen); Red Blood Cells-Urine 0-5 SEEN /hpf (0-5); Squamous Epithelial Cells - UA 0-5 SEEN /hpf (0-5); White Blood Cells 0-5 SEEN /hpf (0-5); Yeast-Urine 1+ /hpf (None Seen)
[2024-11-27 15:00] VITALS: BP 105/66; PULSE 76; RESP 18; O2SAT 97
[2024-11-27] MEDS: Dicyclomine 10 MG Capsule 20 MG PO (15:17)
--- NOTE | 2024-11-27 15:17 | EX.ED.DYSGE1 ---
HPI History of Present Illness Chief Complaint: Abd Pain Narrative Narrative: Patient is a 64-year-old male with a past medical history of hypercholesteremia, COPD, depression, LEONEL, hypertension, hyperlipidemia who presents to the emergency department chief complaint of abdominal pain. Patient states that he developed abdominal pain earlier today and came here for evaluation management. Patient denies any recent sick contacts.Patient complains of generalized cramping. Per triage note patient states that he felt like he had to poop but he could not but states that he did have a bowel movement earlier today I did confirm this and he has been passing gas. 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 Esophageal candidiasis Current use of insulin Back pain due to injury Restless legs Injury of head and neck COPD (chronic obstructive pulmonary disease) High cholesterol History of stress test Depression Chronic pain Non-smoker Sleep apnea Diabetes Hyperlipidemia Hypertension Myocardial infarct Home Medications ?Medication ?Instructions ?Recorded ?Last Taken ?Type metformin 500 mg tablet,extended 500 mg PO BID diabetes 05/02/19 03/18/22 History release 24 hr glipizide 5 mg tablet 5 mg PO BID diabetes 03/19/22 03/18/22 History insulin glargine 100 unit/mL (3 10 unit subcut BID diabetes 03/19/22 03/18/22 History mL) subcutaneous pen (Lantus Solostar U-100 Insulin) ondansetron 4 mg disintegrating 4 mg PO Q8H PRN nausea and 04/26/22 Unknown Rx tablet vomiting #10 tabs dicyclomine 20 mg tablet 20 mg PO TID PRN abdominal 08/07/22 Unknown Rx cramping #20 tabs diphenoxylate-atropine 2.5 1 tab PO 4X/DAY PRN PRN diarrhea 5 10/30/22 Unknown Rx mg-0.025 mg tablet (Lomotil) days #20 tabs hydrocortisone 1 % topical cream 1 applic topical TID PRN skin 08/26/23 Unknown Rx irritation #28.4 grams ibuprofen 600 mg tablet 600 mg PO Q8H PRN PRN pain #20 08/26/23 Unknown Rx TABLETS insulin glargine 100 unit/mL 1 unit subcut QPM 09/29/23 Unknown History subcutaneous solution (Lantus U-100 Insulin) levothyroxine 100 mcg tablet 100 mcg PO DAILY 09/29/23 Unknown History magnesium citrate (Citrate of 300 ml PO DAILY PRN constipation 12/08/23 Unknown Rx Magnesia oral) #296 mL meclizine 25 mg tablet 25 mg PO TID #30 tabs 12/08/23 Unknown Rx cyclobenzaprine 10 mg tablet 10 mg PO TID PRN Muscle Spasm #15 08/10/24 Unknown Rx TABLETS polyethylene glycol 3350 17 17 g PO DAILY PRN constipation 10/19/24 Unknown History gram/dose oral powder (Miralax) dicyclomine 20 mg tablet 20 mg PO TID #20 tabs 11/27/24 Unknown Rx ondansetron 4 mg disintegrating 4 mg PO Q6H PRN nausea and 11/27/24 Unknown Rx tablet vomiting #20 tabs Allergy/AdvReac Type Severity Reaction Status Date / Time diphenhydramine HCl (From Allergy Rash Verified 10/29/24 21:48 Benadryl) Penicillins Allergy Rash Verified 10/29/24 21:48 venom-honey bee (bee venom Allergy Swelling Verified 10/29/24 21:48 (honey bee)) Surgical History Hx of left knee surgery Hx of inguinal herniorrhaphy History of coronary artery stent placement Social History household members: none Smoking Status: Never smoker substance use type: does not use ROS ROS ED ROS Narrative Constitutional: Denies any fevers, chills, headaches, lightness, dizziness Eyes: Denies change in vision double vision blurry vision Cardiovascular: Denies chest pain or palpitations Respiratory: Denies coughing wheezing shortness of breath Abdomen: Complains of abdominal discomfort as noted above denies vomiting or diarrhea : Denies any urinary symptoms Neurological: Denies any numbness, weakness, tingling Musculoskeletal: Denies back pain Skin: Denies any rashes or lesions EXAM Physical Exam Narrative Exam Narrative: General: Patient was lying in bed rest comfortably did not appear to be in acute distress Head: Atraumatic, normocephalic Eyes: PERRL bilaterally, EOMI bilaterally, no conjunctival injection noted Neck: Soft, supple, trachea midline Cardiovascular: Regular rate and rhythm no murmurs gallops rubs noted Respiratory: Clear to auscultation bilaterally no rales rhonchi or wheeze noted Abdomen: Soft, nondistended, no tenderness palpation, bowel sounds present x 4, no rebound or guarding on exam Extremities: +4/5 strength noted in the bilateral upper and lower extremities, radial pulses +2/4 in the bilateral extremities, no pedal edema no exam Neurological: Patient is following commands knew that he was at [facility] year is 2024 Skin: Warm, dry, intact no rashes or lesions noted Const Vital Signs: 11/27/24 13:00 11/27/24 15:00 Temperature 97.6 F L Temperature Source Temporal Pulse Rate 74 76 Respiratory Rate 16 18 Blood Pressure 103/68 105/66 Blood Pressure Mean 79 79 Pulse Ox 94 97 Oxygen Delivery Method Room Air Room Air MDM MDM MDM Narrative Medical decision making narrative: Patient is a 64-year-old male who presented to the emergency department the chief complaint of generalized abdominal discomfort not feeling well. On the differential diagnose includes but not limited to viral gastroenteritis, electrolyte abnormality, pancreatitis. Once workup is obtained reviewed he will be reevaluated. Patient's CBC reviewed and was largely unremarkable no evidence leukocytosis white blood count was normal at 9, hemoglobin stable 14.2, platelet count normal at 231. Patient's sodium was 133, potassium normal at 3.8, creatinine was normal at 0.94. Patient's AST and ALT were 11 and 16 respectively. Patient's total bilirubin normal at 0.40. Patient lipase normal at 23, urinalysis reviewed and showed no evidence of infection. Reevaluation of the patient after medications administered he is feeling much better he would like to go home at this point in time. Repeat abdominal exam at 1600 performed and he has no tenderness to palpation. Patient was given prescriptions for Zofran and Bentyl. He is advised to return with worsening symptoms and concerns. Patient tolerated oral intake with diet Coke here in the emergency department. All question concerns answered is discharged home in stable condition. Lab Data Labs: Laboratory Results - last 24 hr 11/27/24 11/27/24 13:38 14:00 WBC 9.0 RBC 5.03 Hgb 14.2 Hct 41.1 MCV 81.7 MCH 28.2 MCHC 34.5 RDW Std Deviation 41.3 RDW Coeff of Manjinder 14.2 Plt Count 231 MPV 9.3 Immature Gran % (Auto) 0.300 Neut % (Auto) 73.9 H Lymph % (Auto) 16.8 L [place] % (Auto) 5.5 Eos % (Auto) 2.8 Baso % (Auto) 0.7 Absolute Neuts (auto) 6.6 Absolute Lymphs (auto) 1.51 Nucleated RBC % 0 Sodium 133 L Potassium 3.8 Chloride 101 Carbon Dioxide 22.0 Anion Gap 10 BUN 12 Creatinine 0.94 Est GFR (MDRD) Af Amer 103 Est GFR (MDRD) Non-Af 86 BUN/Creatinine Ratio 12.7 Glucose 373 H Calcium 8.8 Total Bilirubin 0.40 AST 11 L ALT 16 Alkaline Phosphatase 107 Total Protein 7.3 Albumin 3.6 Globulin 3.7 Albumin/Globulin Ratio 1.0 Lipase 23 Urine Color Yellow Urine Clarity Clear Urine pH 6.0 Ur Specific [place] 1.020 Urine Protein 30 H Urine Glucose (UA) 1000 H Urine Ketones Negative Urine Occult Blood 10 H Urine Nitrite Negative Urine Bilirubin Negative Urine Urobilinogen Normal Ur Leukocyte Esterase Negative Urine RBC 0-5 SEEN Urine WBC 0-5 SEEN Ur Squamous Epith Cells 0-5 SEEN Urine Bacteria RARE Urine Mucus 0 SEEN Urine Yeast 1+ Discharge Plan Triage Chief Complaint: Abd Pain ED Provider: Pedro Krishnan Dx/Rx/DC Orders Clinical Impression: Abdominal pain Prescriptions: New dicyclomine 20 mg tablet 20 mg PO TID Qty: 20 0RF ondansetron 4 mg tablet,disintegrating 4 mg PO Q6H PRN (Reason: nausea and vomiting) Qty: 20 0RF No Action metformin 500 MG tablet 500 mg PO BID Patient Comments: diabetes insulin glargine [Lantus Solostar U-100 Insulin] 100 unit/mL (3 mL) Insulin Pen 10 unit SUBCUT BID glipizide 5 mg tablet 5 mg PO BID Rx Instructions: Hold if glucose less than 130 mg/dl ondansetron 4 mg tablet,disintegrating 4 mg PO Q8H PRN (Reason: nausea and vomiting) Qty: 10 0RF dicyclomine 20 mg tablet 20 mg PO TID PRN (Reason: abdominal cramping) Qty: 20 0RF diphenoxylate-atropine [Lomotil] 2.5-0.025 mg tablet 1 tab PO 4X/DAY PRN PRN (Reason: diarrhea) 5 Days Qty: 20 0RF meclizine 25 mg tablet 25 mg PO TID Qty: 30 0RF magnesium citrate [Citrate of Magnesia] Solution 300 ml PO DAILY PRN (Reason: constipation) Qty: 296 0RF Rx Instructions: Drink one half bottle if no bowel movement within 4 hours drink the second half of the bottle ibuprofen 600 mg tablet 600 mg PO Q8H PRN PRN (Reason: pain) Qty: 20 0RF hydrocortisone 1 % cream 1 applic topical TID PRN (Reason: skin irritation) Qty: 28.4 0RF levothyroxine 100 mcg tablet 100 mcg PO DAILY Patient Comments: Take 1 tab by mouth once daily on an empty stomach insulin glargine [Lantus U-100 Insulin] 100 unit/mL solution 1 unit subcut QPM cyclobenzaprine 10 mg tablet 10 mg PO TID PRN (Reason: Muscle Spasm) Qty: 15 0RF polyethylene glycol 3350 [Miralax] 17 gram/dose powder 17 g PO DAILY PRN (Reason: constipation) Primary Care Provider: Care Physician,No Primary Referrals: Care Physician,No Primary [Primary Care Provider] - Thuy Loja Jennifer, DO [[facility]] - Activity Restrictions/Additional Instructions: Take prescriptions as prescribed. Return for worsening symptoms or any concerns. Your blood work here was overall normal. Follow-up with your primary care physician if you do not have 1 you referred to 1. Print Language: Danish Disposition Disposition: Home, Self Care
[2024-11-27 16:07] VITALS: BP 138/69; PULSE 88; RESP 18; TEMP 36.6; O2SAT 96
== END 2024-11-27 16:13 | disposition home or self-care (01) ==
PROVIDERS: Emergency Provider Emergency Medicine; Visit Provider Emergency Medicine
DX: R10.9 Unspecified abdominal pain (principal); J44.9 Chronic obstructive pulmonary disease, unspecified; E11.9 Type 2 diabetes mellitus without complications; I25.2 Old myocardial infarction; Z95.5 Presence of coronary angioplasty implant and graft
CPT/HCPCS: 80053; 81001; 83690; 85025; 99282; A4216

== ENCOUNTER 2024-12-08 12:20 | Emergency (ER) | payer OTHER, MEDICAID, SELFPAY ==
[2024-12-08 12:21] VITALS: BP 125/77; PULSE 81; RESP 16; TEMP 36.3; O2SAT 100; BMI 26.4
[2024-12-08 12:22] VITALS: BP 125/77; PULSE 80; RESP 16; TEMP 36.3; O2SAT 100
--- NOTE | 2024-12-08 12:48 | EX.ED.DYSGE1 ---
HPI History of Present Illness Chief Complaint: General Illness Narrative Narrative: 64-year-old male past medical history of diabetes presents with multiple somatic complaints that has had for the last 2 days. He states he has dry mouth and urinary frequency with occasional cough. He states he had subjective fever as well. No nausea or vomiting. He is really complaining about his dry mouth and urinary frequency, stating that he urinates at least 3-4 times an hour. He checked his blood sugar today and it was elevated at 245. No other exacerbating or alleviating factors. 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 Esophageal candidiasis Current use of insulin Back pain due to injury Restless legs Injury of head and neck COPD (chronic obstructive pulmonary disease) High cholesterol History of stress test Depression Chronic pain Non-smoker Sleep apnea Diabetes Hyperlipidemia Hypertension Myocardial infarct Home Medications ?Medication ?Instructions ?Recorded ?Last Taken ?Type metformin 500 mg tablet,extended 500 mg PO BID diabetes 05/02/19 03/18/22 History release 24 hr glipizide 5 mg tablet 5 mg PO BID diabetes 03/19/22 03/18/22 History insulin glargine 100 unit/mL (3 10 unit subcut BID diabetes 03/19/22 03/18/22 History mL) subcutaneous pen (Lantus Solostar U-100 Insulin) ondansetron 4 mg disintegrating 4 mg PO Q8H PRN nausea and 04/26/22 Unknown Rx tablet vomiting #10 tabs dicyclomine 20 mg tablet 20 mg PO TID PRN abdominal 08/07/22 Unknown Rx cramping #20 tabs diphenoxylate-atropine 2.5 1 tab PO 4X/DAY PRN PRN diarrhea 5 10/30/22 Unknown Rx mg-0.025 mg tablet (Lomotil) days #20 tabs hydrocortisone 1 % topical cream 1 applic topical TID PRN skin 08/26/23 Unknown Rx irritation #28.4 grams ibuprofen 600 mg tablet 600 mg PO Q8H PRN PRN pain #20 08/26/23 Unknown Rx TABLETS insulin glargine 100 unit/mL 1 unit subcut QPM 09/29/23 Unknown History subcutaneous solution (Lantus U-100 Insulin) levothyroxine 100 mcg tablet 100 mcg PO DAILY 09/29/23 Unknown History magnesium citrate (Citrate of 300 ml PO DAILY PRN constipation 12/08/23 Unknown Rx Magnesia oral) #296 mL meclizine 25 mg tablet 25 mg PO TID #30 tabs 12/08/23 Unknown Rx cyclobenzaprine 10 mg tablet 10 mg PO TID PRN Muscle Spasm #15 08/10/24 Unknown Rx TABLETS polyethylene glycol 3350 17 17 g PO DAILY PRN constipation 10/19/24 Unknown History gram/dose oral powder (Miralax) dicyclomine 20 mg tablet 20 mg PO TID #20 tabs 11/27/24 Unknown Rx ondansetron 4 mg disintegrating 4 mg PO Q6H PRN nausea and 11/27/24 Unknown Rx tablet vomiting #20 tabs Allergy/AdvReac Type Severity Reaction Status Date / Time diphenhydramine HCl (From Allergy Rash Verified 12/08/24 12:22 Benadryl) Penicillins Allergy Rash Verified 12/08/24 12:22 venom-honey bee (bee venom Allergy Swelling Verified 12/08/24 12:22 (honey bee)) Family History no significant family his Surgical History Hx of left knee surgery Hx of inguinal herniorrhaphy History of coronary artery stent placement Social History household members: none Smoking Status: Never smoker substance use type: does not use ROS ROS ED ROS Narrative Review of systems positive for dry mouth, urinary frequency, cough. No fevers or chills. No nausea or vomiting. No chest pain or shortness of breath. Reports elevated blood sugar of 245 this morning. EXAM Physical Exam Narrative Exam Narrative: Afebrile. Vital signs noted. HEENT: Normocephalic. Atraumatic. PERRL, EOMI. Neck soft and supple. No point tenderness or step off. Tacky mucous membranes. Cardiovascular: Regular rate and rhythm. No murmurs, rubs, or gallops appreciated. Respiratory: No tachypnea. Lungs clear to auscultation bilaterally. Gastrointestinal: Abdomen soft, nontender, with normoactive bowel sounds. No rebound or guarding. Neurological: Awake. Alert. Nonfocal, nonlateralizing. Skin: No rash. Normal color. No pallor. Musculoskeletal: No pedal edema. Full range of motion extremities. Const Vital Signs: 12/08/24 12:21 12/08/24 12:22 12/08/24 14:52 Temperature 97.4 F L 97.4 F L 97.4 F L Temperature Source Oral Oral Pulse Rate 81 80 86 Respiratory Rate 16 16 18 Blood Pressure 125/77 H 125/77 H 160/102 H Blood Pressure Mean 93 93 121 Pulse Ox 100 100 95 Oxygen Delivery Method Room Air Room Air MDM MDM MDM Narrative Medical decision making narrative: Differential diagnosis includes but not limited to viral syndrome versus upper respiratory infection versus urinary tract infection versus diabetic ketoacidosis versus other electrolyte imbalance/dehydration. I will check a CBC and CMP he will be bolused normal saline. I do not feel he requires a chest x-ray. I reviewed his laboratory work and he has normal white count of 6.0 with hemoglobin normal at 13.6, hematocrit 38.6, platelet count normal at 226. CMP is remarkable for elevated glucose of 395, but he has normal anion gap of 6 so I doubt diabetic ketoacidosis. He was bolused normal saline 1 L intravenously. No evidence of dehydration with a BUN of 12 and creatinine 0.85. Sodium normal at 136 with potassium 3.9. AST is low at 10 with normal ALT of 16 and alk phos 98. Urinalysis does show glucose consistent with his diabetes but negative for ketones, negative for infection with 0 WBCs. At this point in time, I am unsure as to the cause of his dry mouth but I feel he can be discharged to follow-up with his primary care provider. I do not feel that he requires admission for his hyperglycemia with his history of diabetes. When compared to prior labs, his glucose is usually consistently elevated. He is tolerating p.o. fluids. Return instructions were reviewed. Disposition is discharged home in stable condition. History & Record Review Discussion w/independent historian: Patient Additional record(s) reviewed:: Prior ED visit and Prior labs Lab Data Attestation: I reviewed the patient's lab results. Labs: Laboratory Results - last 24 hr 12/08/24 12/08/24 12:55 13:35 WBC 6.0 RBC 4.77 Hgb 13.6 Hct 38.6 L MCV 80.9 MCH 28.5 MCHC 35.2 RDW Std Deviation 40.5 RDW Coeff of Manjinder 14.0 Plt Count 226 MPV 8.9 Immature Gran % (Auto) 0.500 Neut % (Auto) 67.2 Lymph % (Auto) 20.7 [place] % (Auto) 7.1 Eos % (Auto) 3.8 Baso % (Auto) 0.7 Absolute Neuts (auto) 4.1 Absolute Lymphs (auto) 1.25 Nucleated RBC % 0 Sodium 136 Potassium 3.9 Chloride 100 Carbon Dioxide 30.0 Anion Gap 6 BUN 12 Creatinine 0.85 Estim Creat Clear Calc 110.65 Est GFR (MDRD) Af Amer 117 Est GFR (MDRD) Non-Af 97 BUN/Creatinine Ratio 14.2 Glucose 395 H Calcium 9.0 Total Bilirubin 0.40 AST 10 L ALT 16 Alkaline Phosphatase 98 Total Protein 7.3 Albumin 3.5 Globulin 3.8 Albumin/Globulin Ratio 0.9 Urine Color Yellow Urine Clarity Clear Urine pH 6.0 Ur Specific [place] 1.010 Urine Protein Negative Urine Glucose (UA) 1000 H Urine Ketones Negative Urine Occult Blood Negative Urine Nitrite Negative Urine Bilirubin Negative Urine Urobilinogen Normal Ur Leukocyte Esterase Negative Urine RBC 0 SEEN Urine WBC 0 SEEN Ur Squamous Epith Cells 0-5 SEEN Urine Bacteria 1+ Urine Mucus 0 SEEN Discharge Plan Triage Chief Complaint: General Illness ED Provider: Barry Mathew Dx/Rx/DC Orders Clinical Impression: Dry mouth, Urinary frequency, Hyperglycemia Instructions: ED Diabetic Hyperglycemia Prescriptions: No Action metformin 500 MG tablet 500 mg PO BID Patient Comments: diabetes insulin glargine [Lantus Solostar U-100 Insulin] 100 unit/mL (3 mL) Insulin Pen 10 unit SUBCUT BID glipizide 5 mg tablet 5 mg PO BID Rx Instructions: Hold if glucose less than 130 mg/dl ondansetron 4 mg tablet,disintegrating 4 mg PO Q8H PRN (Reason: nausea and vomiting) Qty: 10 0RF dicyclomine 20 mg tablet 20 mg PO TID PRN (Reason: abdominal cramping) Qty: 20 0RF diphenoxylate-atropine [Lomotil] 2.5-0.025 mg tablet 1 tab PO 4X/DAY PRN PRN (Reason: diarrhea) 5 Days Qty: 20 0RF meclizine 25 mg tablet 25 mg PO TID Qty: 30 0RF magnesium citrate [Citrate of Magnesia] Solution 300 ml PO DAILY PRN (Reason: constipation) Qty: 296 0RF Rx Instructions: Drink one half bottle if no bowel movement within 4 hours drink the second half of the bottle ibuprofen 600 mg tablet 600 mg PO Q8H PRN PRN (Reason: pain) Qty: 20 0RF hydrocortisone 1 % cream 1 applic topical TID PRN (Reason: skin irritation) Qty: 28.4 0RF levothyroxine 100 mcg tablet 100 mcg PO DAILY Patient Comments: Take 1 tab by mouth once daily on an empty stomach insulin glargine [Lantus U-100 Insulin] 100 unit/mL solution 1 unit subcut QPM cyclobenzaprine 10 mg tablet 10 mg PO TID PRN (Reason: Muscle Spasm) Qty: 15 0RF polyethylene glycol 3350 [Miralax] 17 gram/dose powder 17 g PO DAILY PRN (Reason: constipation) dicyclomine 20 mg tablet 20 mg PO TID Qty: 20 0RF ondansetron 4 mg tablet,disintegrating 4 mg PO Q6H PRN (Reason: nausea and vomiting) Qty: 20 0RF Primary Care Provider: Care Physician,No Primary Referrals: Bernard Desai MD [Med Staff - Active Staff] - 3-5 Days if not improving Care Physician,No Primary [Primary Care Provider] - Activity Restrictions/Additional Instructions: Drink plenty of oral fluids. Continue your diabetic medications as previously prescribed. <del>It</del> <del>is</del> <del>important</del> <del>for</del> <del>you</del> <del>to</del> <del>follow-up</del> <del>with</del> <del>a</del> <del>primary</del> <del>care</del> <del>provider.</del> Print Language: Lithuanian Disposition Disposition: Home, Self Care Discharge Date/Time: 12/08/24 15:05
[2024-12-08] MEDS: 0.9% Normal Saline (1000mL) 1,000 ML 999 ML IV (12:58)
[2024-12-08 13:11] LABS: Absolute Lymphocyte Count 1.25 X10^3/uL (0.83-4.51); Absolute Neutrophil Count 4.1 X10^3/uL (2.0-7.7); Basophil# 0.04 X10^3/uL; Basophil% 0.7 % (0-1); Eosinophil# 0.23 X10^3/uL; Eosinophils% 3.8 % (0-5); Hematocrit 38.6 % (40-54); Hemoglobin 13.6 g/dL (13.0-16.5); Lymphocyte # 1.25 X10^3/ul (0.83-4.51); Lymphocyte % 20.7 % (19-41); Mean Corp Hgb Conc 35.2 g/dL (32-36); Mean Corpuscular Hgb 28.5 pg (27.0-32.0); Mean Corpuscular Volume 80.9 fL (80-94); Mean Platelet Vol. 8.9 fl (6.2-12.0); Monocyte# 0.43 X10^3/uL; Monocyte% 7.1 % (0-10); NRBC Flagged by Analyzer 0 % (0-5); Neutrophil # 4.06 X10^3/uL (2.7-7.7); Neutrophil % 67.2 % (47-70); Platelet Count 226 K/mm3 (150-450); RBC Distribution Width SD 40.5 fl (35.1-43.9); Red Blood Count 4.77 M/mm3 (4.6-6.2)
[2024-12-08 13:21] LABS: ALB/GLOB Ratio 0.9 RATIO (0.9-2.4); AST(SGOT) 10 U/L (15-37); Alanine Aminotransfer ALT/SGPT 16 U/L (16-61); Albumin, Serum 3.5 g/dL (3.2-5.0); Alkaline Phosphatase 98 U/L (45-117); Anion Gap 6 (5-15); BUN 12 mg/dL (7-18); BUN/Creat Ratio 14.2 RATIO (10-20); Chloride 100 mmol/L (98-107); Creatinine, Serum 0.85 mg/dL (0.70-1.30); EST Glomerular Filtration Rate 97 mL/min (>60); Est Glom Filt Rate - Afr Amer 117 mL/min (>60); Estimated Creatinine Clearance 110.65 ml/min; Globulin 3.8 g/dL (2.2-4.2); Glucose 395 mg/dL (74-106); Potassium 3.9 mmol/L (3.5-5.1); Protein, Total 7.3 g/dL (6.4-8.2); Sodium Level 136 mmol/L (136-145)
[2024-12-08 13:54] LABS: Mucous, Urine 0 SEEN /hpf (<or=2+); White Blood Cells 0 SEEN /hpf (0-5)
[2024-12-08 14:09] LABS: Color, Urine Yellow (Yellow); Glucose, Dipstick 1000 mg/dl (Normal); Ketone-Dipstick Negative (Negative); Leukocyte Esterase-Dipstick Negative /ul (Negative); Nitrite-Dipstick Negative (Negative); Occult Blood-Urine Negative /ul (Negative); Protein-Dipstick Negative (Negative); Urine Bilirubin Dipstick Negative (Negative); Urine Clarity Clear (Clear); Urine Urobilinogen Normal (Normal)
[2024-12-08 14:17] LABS: Red Blood Cells-Urine 0 SEEN /hpf (0-5); Squamous Epithelial Cells - UA 0-5 SEEN /hpf (0-5)
[2024-12-08 14:18] LABS: Bacteria 1+ /hpf (None Seen)
[2024-12-08 14:52] VITALS: BP 160/102; PULSE 86; RESP 18; TEMP 36.3; O2SAT 95
== END 2024-12-08 15:05 | disposition home or self-care (01) ==
PROVIDERS: Emergency Provider Emergency Medicine; Visit Provider Emergency Medicine
DX: R68.2 Dry mouth, unspecified (principal); J44.9 Chronic obstructive pulmonary disease, unspecified; E11.65 Type 2 diabetes mellitus with hyperglycemia; R35.0 Frequency of micturition; I25.2 Old myocardial infarction; G47.30 Sleep apnea, unspecified; Z95.5 Presence of coronary angioplasty implant and graft
CPT/HCPCS: 80053; 81001; 85025; 87631; 96360; 96361; 99283

== ENCOUNTER 2024-12-20 12:17 | Emergency (ER) | payer OTHER, MEDICAID, SELFPAY ==
[2024-12-20 12:17] VITALS: BP 103/64; PULSE 72; RESP 14; TEMP 36.6; O2SAT 99
[2024-12-20 15:37] LABS: Bacteria 0 SEEN /hpf (None Seen); Mucous, Urine 0 SEEN /hpf (<or=2+); Squamous Epithelial Cells - UA 0 SEEN /hpf (0-5)
[2024-12-20 15:41] LABS: Absolute Neutrophil Count 6.6 X10^3/uL (2.0-7.7); Basophil# 0.04 X10^3/uL; Basophil% 0.5 % (0-1); Eosinophil# 0.14 X10^3/uL; Eosinophils% 1.7 % (0-5); Hematocrit 40.7 % (40-54); Hemoglobin 14.4 g/dL (13.0-16.5); Lymphocyte % 13.2 % (19-41); Mean Corp Hgb Conc 35.4 g/dL (32-36); Mean Corpuscular Hgb 29.1 pg (27.0-32.0); Mean Corpuscular Volume 82.2 fL (80-94); Mean Platelet Vol. 9.3 fl (6.2-12.0); Monocyte# 0.44 X10^3/uL; Monocyte% 5.3 % (0-10); NRBC Flagged by Analyzer 0 % (0-5); Neutrophil # 6.57 X10^3/uL (2.7-7.7); Neutrophil % 78.5 % (47-70); Platelet Count 281 K/mm3 (150-450); RBC Distribution Width CV 13.9 % (11.6-14.6); RBC Distribution Width SD 41.1 fl (35.1-43.9); Red Blood Count 4.95 M/mm3 (4.6-6.2); White Blood Count 8.4 K/mm3 (4.4-11.0)
[2024-12-20 15:53] LABS: ALB/GLOB Ratio 0.8 RATIO (0.9-2.4); AST(SGOT) 8 U/L (15-37); Alanine Aminotransfer ALT/SGPT 16 U/L (16-61); Albumin, Serum 3.4 g/dL (3.2-5.0); Alkaline Phosphatase 117 U/L (45-117); Anion Gap 5 (5-15); BUN 10 mg/dL (7-18); BUN/Creat Ratio 11.2 RATIO (10-20); Calcium,Total 9.7 mg/dL (8.5-10.1); Chloride 99 mmol/L (98-107); Creatinine, Serum 0.89 mg/dL (0.70-1.30); EST Glomerular Filtration Rate 91 mL/min (>60); Est Glom Filt Rate - Afr Amer 110 mL/min (>60); Globulin 4.1 g/dL (2.2-4.2); Glucose 424 mg/dL (74-106); Lipase 13 U/L (73-393); Potassium 4.3 mmol/L (3.5-5.1); Protein, Total 7.5 g/dL (6.4-8.2); Sodium Level 135 mmol/L (136-145)
[2024-12-20 15:55] LABS: Color, Urine Yellow (Yellow); Glucose, Dipstick 1000 mg/dl (Normal); Ketone-Dipstick Negative (Negative); Leukocyte Esterase-Dipstick Negative /ul (Negative); Nitrite-Dipstick Negative (Negative); Occult Blood-Urine 10 /ul (Negative); Protein-Dipstick Negative (Negative); Urine Bilirubin Dipstick Negative (Negative); Urine Clarity Clear (Clear); Urine Urobilinogen Normal (Normal)
[2024-12-20 16:35] LABS: Hyaline Cast 0-5 SEEN /lpf (0-5); Red Blood Cells-Urine 0-5 SEEN /hpf (0-5); White Blood Cells 0-5 SEEN /hpf (0-5); Yeast-Urine 1+ /hpf (None Seen)
--- NOTE | 2024-12-20 17:34 | CT_ITS ---
PROCEDURE: ABDOMEN/PELVIS W IV CONT ONLY REASON FOR EXAM: Abdominal pain. TECHNIQUE: Abdomen and pelvis CT with intravenous contrast. IV CONTRAST: 91 mL of Isovue-300. COMPARISON: 03/08/2024 CT. FINDINGS: Lung bases: Mild dependent atelectasis. Liver: Unremarkable. Gallbladder: Unremarkable. Spleen: Unremarkable. Pancreas: Unremarkable. Adrenals: Unremarkable. Kidneys: Unremarkable. Bladder: Unremarkable. Reproductive Organs: Unremarkable. Bowel: Sigmoid colon wall thickening which may be due to underdistention or colitis. Appendix: Normal. Lymph nodes: No suspicious lymph node enlargement. Vasculature: Major vascular structures are unremarkable. Peritoneum / Retroperitoneum: No ascites. No free air. Bones: Degenerative changes of the spine most pronounced at L4-5 and L5-S1. CT/Abdomen/Pelvis W IV Cont ONLY IMPRESSION: Sigmoid colon wall thickening which may be due to underdistention or colitis. One or more dose reduction techniques were used (e.g., Automated exposure contr ol, adjustment of the mA and/or kV according to patient size, use of iterative reconstruction technique). Reading Location: [place] [address]
--- NOTE | 2024-12-20 17:35 | ED.VIS.GI ---
HPI HPI - GI History of Present Illness Chief Complaint: Abd Pain Informant: patient Abdominal Pain/Flank Pain Onset: Today and Hours Context: Gradual Onset Timing: Continuous Quality: Aching Location: - (Periumbilical abdominal pain today since noon.) Current Severity: Mild Maximum Severity: Mild Worsened by: Nothing Relieved by: Nothing Nausea/Vomiting/Emesis GI Symptom: Negative for Nausea or Vomiting Diarrhea/Melena/Hematochezia GI Symptom: Positive for Diarrhea; Negative for Melena or Hematochezia Onset: Weeks (Intermittent) Stool Quality: Positive for Loose Severity: Mild Associated Symptoms Associated Symptoms: Negative for Dysuria, Frequency, Hematuria or Urgency Narrative Narrative: 64-year-old male history of COPD, diabetes hypertension. States he has abdominal pain today since about noon. Said the pain before without prior diagnosis. Denies any prior abdominal surgeries. Denies any abdominal trauma. No dysuria. States is intermittent had diarrhea for some time. It comes and goes. Denies any melena. No fever. Nothing particular makes his pain better or worse. It does not radiate to his back. No chest pain. Denies any fever or weight loss. 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 Esophageal candidiasis Current use of insulin Back pain due to injury Restless legs Injury of head and neck COPD (chronic obstructive pulmonary disease) High cholesterol History of stress test Depression Chronic pain Non-smoker Sleep apnea Diabetes Hyperlipidemia Hypertension Myocardial infarct Home Medications ?Medication ?Instructions ?Recorded ?Last Taken ?Type metformin 500 mg tablet,extended 500 mg PO BID diabetes 05/02/19 03/18/22 History release 24 hr glipizide 5 mg tablet 5 mg PO BID diabetes 03/19/22 03/18/22 History insulin glargine 100 unit/mL (3 10 unit subcut BID diabetes 03/19/22 03/18/22 History mL) subcutaneous pen (Lantus Solostar U-100 Insulin) ondansetron 4 mg disintegrating 4 mg PO Q8H PRN nausea and 04/26/22 Unknown Rx tablet vomiting #10 tabs dicyclomine 20 mg tablet 20 mg PO TID PRN abdominal 08/07/22 Unknown Rx cramping #20 tabs diphenoxylate-atropine 2.5 1 tab PO 4X/DAY PRN PRN diarrhea 5 10/30/22 Unknown Rx mg-0.025 mg tablet (Lomotil) days #20 tabs hydrocortisone 1 % topical cream 1 applic topical TID PRN skin 08/26/23 Unknown Rx irritation #28.4 grams ibuprofen 600 mg tablet 600 mg PO Q8H PRN PRN pain #20 08/26/23 Unknown Rx TABLETS insulin glargine 100 unit/mL 1 unit subcut QPM 09/29/23 Unknown History subcutaneous solution (Lantus U-100 Insulin) levothyroxine 100 mcg tablet 100 mcg PO DAILY 09/29/23 Unknown History magnesium citrate (Citrate of 300 ml PO DAILY PRN constipation 12/08/23 Unknown Rx Magnesia oral) #296 mL meclizine 25 mg tablet 25 mg PO TID #30 tabs 12/08/23 Unknown Rx cyclobenzaprine 10 mg tablet 10 mg PO TID PRN Muscle Spasm #15 08/10/24 Unknown Rx TABLETS polyethylene glycol 3350 17 17 g PO DAILY PRN constipation 10/19/24 Unknown History gram/dose oral powder (Miralax) dicyclomine 20 mg tablet 20 mg PO TID #20 tabs 11/27/24 Unknown Rx ondansetron 4 mg disintegrating 4 mg PO Q6H PRN nausea and 11/27/24 Unknown Rx tablet vomiting #20 tabs Allergy/AdvReac Type Severity Reaction Status Date / Time diphenhydramine HCl (From Allergy Rash Verified 12/20/24 12:27 Benadryl) Penicillins Allergy Rash Verified 12/20/24 12:27 venom-honey bee (bee venom Allergy Swelling Verified 12/20/24 12:27 (honey bee)) Surgical History Hx of left knee surgery Hx of inguinal herniorrhaphy History of coronary artery stent placement Social History household members: none Smoking Status: Never smoker substance use type: does not use ROS ROS ED ROS Narrative Abdominal pain. Diarrhea. Constitutional Constitutional ED: Denies chills or fever(s) ENT ENT ED: Denies ear pain Cardiovascular Cardiovascular: Denies chest pain Respiratory/Chest Respiratory/Chest: Denies cough or dyspnea Gastrointestinal Gastrointestinal: Reports abdominal pain and diarrhea; Denies constipation, melena, nausea or vomiting Genitourinary Genitourinary ED: Denies dysuria or hematuria Musculoskeletal Musculoskeletal: Denies arthralgias or back pain Integumentary Denies abscess Neurologic Neurologic: Denies headache(s) Psychiatric Psychiatric: Denies anxiety Endocrine Endocrinology: Denies polydipsia Hematologic/Lymphatic Hematologic/Lymphatic: Denies easy bleeding Allergic/Immunologic Allergic/Immunologic ED: Denies mouth swelling, tongue swelling or urticaria EXAM Physical Exam Narrative Exam Narrative: Well-appearing 64-year-old male. Vital signs are stable afebrile. No acute distress. No one else present in the room. H EENT exam pupils round react to light. Mytrex members. Neck nontender no lymphadenopathy. Back nontender. No reproducible pain. Lungs clear to auscultation bilateral. Heart regular rate and rhythm rate about 70 no murmur. Chest wall ribs nontender. Abdomen soft nondistended normal bowel sounds without peritoneal signs. No specific right upper or right lower quadrant tenderness. Mild periumbilical tenderness. No hernia or mass. No obstruction. No pulsatile mass. Left upper and left lower quadrant unremarkable. No signs of trauma. External exam nontender. Moving all 4 extremities. Nontender. Normal range of motion. Neurologically is awake and alert no focal motor deficits. Const Vital Signs: 12/20/24 12:17 12/20/24 17:55 Temperature 98 F Temperature Source Temporal Pulse Rate 72 91 Respiratory Rate 14 18 Blood Pressure 103/64 149/89 H Blood Pressure Mean 77 109 Pulse Ox 99 98 Oxygen Delivery Method Room Air Room Air Positive well nourished and well developed; Negative for cachectic, contractures or unkempt General Appearance ED: well developed and NAD; Negative for unkempt, cachectic, contractures or pallor Nutritional Appearance: Negative for cachectic HEENT Reports moist mucous membranes normocephalic and atraumatic Eyes EOMs intact bilaterally Neck no lymphadenopathy, supple and no JVD Resp normal respiratory effort and clear to auscultation bilaterally Cardio regular rate, regular rhythm, S1 normal heart sound, S2 normal heart sound and no murmurs GI non-distended and no masses; Negative for non-tender GI Narrative: Mild periumbilical tenderness. No hernia or mass. No obstruction. No pulsatile mass. No specific right lower or right upper quadrant tenderness. Inspection: Negative for abdominal distention Auscultation: normoactive bowel sounds Palpation: soft and tender; Negative for guarding, rigid, hepatomegaly, splenomegaly, hernia, mass, pulsatile mass or rebound tenderness present Back/Spine General Back: Negative for CVA tenderness Cervical Spine: Negative for cervical spine tenderness Thoracic Spine / Upper Back: Negative for thoracic spinal tenderness Lumbar Spine / Lower Back: Negative for lumbar spinal tenderness Extremity full ROM General Extremety ED: Negative for edema or tenderness General Extremity: Negative for edema Neuro CN's II-XII intact bilaterally and moves all extremities Sensorium / Orientation: alert, oriented to person, oriented to place and oriented to time; Negative for orientation impaired or confused Motor Exam: strength 5/5 throughout Psych mental status grossly normal and thought process normal Appearance: Negative for unkempt Attitude: No agitated Mood & Affect: Negative for depressed, anxious or tearful Skin no wounds General Skin Exam: Negative for jaundice or pallor Lesions: no lesions Rashes: no rashes Trauma: Negative for abrasion MDM MDM MDM Narrative Medical decision making narrative: 64-year-old male with periumbilical abdominal discomfort for several hours today. Denies any prior abdominal surgery. Labs are benign. CAT scan pending. Currently does not need anything for pain. He has a known diabetic. His blood sugars for 24. He will be given 10 units of insulin subcu. Repeat exam patient is doing well at 7:49 PM. We went over his test results. Repeat abdominal exam is benign. Nontender no peritoneal signs. Nondistended. Will be discharged home. Patient is comfortable with the plan. History & Record Review Discussion w/independent historian: Patient Additional record(s) reviewed:: Prior inpatient record, Prior outpatient record, Prior ED visit and Prior labs Lab Data Attestation: I reviewed the patient's lab results. Lab results narrative: CBC is normal white count 8. H&H 14 and 40. Platelets 281. Electrolytes show sodium 135. Gap 5. Normal BUN of 10 creatinine 0.89. Glucose 424 is a known diabetic. Liver enzymes unremarkable. Lipase 13. Urinalysis negative. No white or red cells. No nitrites. No bacteria. CT abdomen shows chronic changes no acute abnormality as read by the radiologist. Reviewed by me. Labs: Laboratory Results - last 24 hr 12/20/24 12/20/24 15:20 15:25 WBC 8.4 RBC 4.95 Hgb 14.4 Hct 40.7 MCV 82.2 MCH 29.1 MCHC 35.4 RDW Std Deviation 41.1 RDW Coeff of Manjinder 13.9 Plt Count 281 MPV 9.3 Immature Gran % (Auto) 0.800 Neut % (Auto) 78.5 H Lymph % (Auto) 13.2 L [place] % (Auto) 5.3 Eos % (Auto) 1.7 Baso % (Auto) 0.5 Absolute Neuts (auto) 6.6 Absolute Lymphs (auto) 1.10 Nucleated RBC % 0 Sodium 135 L Potassium 4.3 Chloride 99 Carbon Dioxide 31.0 Anion Gap 5 BUN 10 Creatinine 0.89 Est GFR (MDRD) Af Amer 110 Est GFR (MDRD) Non-Af 91 BUN/Creatinine Ratio 11.2 Glucose 424 H Calcium 9.7 Total Bilirubin 0.70 AST 8 L ALT 16 Alkaline Phosphatase 117 Total Protein 7.5 Albumin 3.4 Globulin 4.1 Albumin/Globulin Ratio 0.8 L Lipase 13 L Urine Color Yellow Urine Clarity Clear Urine pH 5.0 Ur Specific [place] 1.010 Urine Protein Negative Urine Glucose (UA) 1000 H Urine Ketones Negative Urine Occult Blood 10 H Urine Nitrite Negative Urine Bilirubin Negative Urine Urobilinogen Normal Ur Leukocyte Esterase Negative Urine RBC 0-5 SEEN Urine WBC 0-5 SEEN Ur Squamous Epith Cells 0 SEEN Urine Bacteria 0 SEEN Hyaline Casts 0-5 SEEN Urine Mucus 0 SEEN Urine Yeast 1+ Radiography Diagnostic Testing: Clinical Impression(s) from Imaging Studies Abdomen/Pelvis CT 12/20/24 17:34 IMPRESSION: Sigmoid colon wall thickening which may be due to underdistention or colitis. One or more dose reduction techniques were used (e.g., Automated exposure control, adjustment of the mA and/or kV according to patient size, use of iterative reconstruction technique). Reading Location: [place] [address] Discharge Plan Triage Chief Complaint: Abd Pain ED Provider: Avni Cash Dx/Rx/DC Orders Clinical Impression: Abdominal pain, Hyperglycemia due to diabetes mellitus, History of COPD Instructions: Abdominal Pain Prescriptions: No Action metformin 500 MG tablet 500 mg PO BID Patient Comments: diabetes insulin glargine [Lantus Solostar U-100 Insulin] 100 unit/mL (3 mL) Insulin Pen 10 unit SUBCUT BID glipizide 5 mg tablet 5 mg PO BID Rx Instructions: Hold if glucose less than 130 mg/dl ondansetron 4 mg tablet,disintegrating 4 mg PO Q8H PRN (Reason: nausea and vomiting) Qty: 10 0RF dicyclomine 20 mg tablet 20 mg PO TID PRN (Reason: abdominal cramping) Qty: 20 0RF diphenoxylate-atropine [Lomotil] 2.5-0.025 mg tablet 1 tab PO 4X/DAY PRN PRN (Reason: diarrhea) 5 Days Qty: 20 0RF meclizine 25 mg tablet 25 mg PO TID Qty: 30 0RF magnesium citrate [Citrate of Magnesia] Solution 300 ml PO DAILY PRN (Reason: constipation) Qty: 296 0RF Rx Instructions: Drink one half bottle if no bowel movement within 4 hours drink the second half of the bottle ibuprofen 600 mg tablet 600 mg PO Q8H PRN PRN (Reason: pain) Qty: 20 0RF hydrocortisone 1 % cream 1 applic topical TID PRN (Reason: skin irritation) Qty: 28.4 0RF levothyroxine 100 mcg tablet 100 mcg PO DAILY Patient Comments: Take 1 tab by mouth once daily on an empty stomach insulin glargine [Lantus U-100 Insulin] 100 unit/mL solution 1 unit subcut QPM cyclobenzaprine 10 mg tablet 10 mg PO TID PRN (Reason: Muscle Spasm) Qty: 15 0RF polyethylene glycol 3350 [Miralax] 17 gram/dose powder 17 g PO DAILY PRN (Reason: constipation) dicyclomine 20 mg tablet 20 mg PO TID Qty: 20 0RF ondansetron 4 mg tablet,disintegrating 4 mg PO Q6H PRN (Reason: nausea and vomiting) Qty: 20 0RF Primary Care Provider: Care Physician,No Primary Referrals: Titus Lee MD [Med Staff - Active Staff] - 1 Week if not improving Care Physician,No Primary [Primary Care Provider] - Activity Restrictions/Additional Instructions: Your test and CAT scan look good. Follow-up with your doctor or local primary care physician if not improving. Print Language: Romanian Disposition Disposition: Home, Self Care
[2024-12-20 17:55] VITALS: BP 149/89; PULSE 91; RESP 18; O2SAT 98
[2024-12-20] MEDS: Insulin Lispro 100 UNIT/ML INSULN.PEN 10 UNIT SC (17:57)
[2024-12-20 19:00] VITALS: PULSE 88; RESP 18; O2SAT 97
[2024-12-20 20:13] VITALS: BP 130/98; PULSE 98; RESP 18; TEMP 36.6; O2SAT 97
== END 2024-12-20 20:14 | disposition home or self-care (01) ==
PROVIDERS: Emergency Provider Emergency Medicine; Visit Provider Emergency Medicine
DX: R10.33 Periumbilical pain (principal); J44.9 Chronic obstructive pulmonary disease, unspecified; E11.65 Type 2 diabetes mellitus with hyperglycemia; G47.30 Sleep apnea, unspecified; I25.2 Old myocardial infarction; Z95.5 Presence of coronary angioplasty implant and graft
CPT/HCPCS: 74177; 80053; 81001; 83690; 85025; 99285; Q9967; A4216

== ENCOUNTER 2024-12-26 23:50 | Emergency (ER) | payer OTHER, MEDICAID, SELFPAY ==
[2024-12-26 23:51] VITALS: BP 111/78; PULSE 87; RESP 18; TEMP 36.6; O2SAT 98; BMI 25.4
[2024-12-27 00:18] LABS: Mucous, Urine 0 SEEN /hpf (<or=2+); Squamous Epithelial Cells - UA 0 SEEN /hpf (0-5)
[2024-12-27 00:21] LABS: Color, Urine Yellow (Yellow); Glucose, Dipstick 1000 mg/dl (Normal); Ketone-Dipstick Negative (Negative); Leukocyte Esterase-Dipstick 500 /ul (Negative); Nitrite-Dipstick Positive (Negative); Occult Blood-Urine 250 /ul (Negative); Protein-Dipstick 500 mg/dl (Negative); Specific Gravity, Urine 1.015 (1.002-1.030); Urine Bilirubin Dipstick Negative (Negative); Urine Clarity Turbid (Clear); Urine Urobilinogen Normal (Normal)
[2024-12-27 00:30] LABS: Bacteria 3+ /hpf (None Seen); Red Blood Cells-Urine 25-50 SEEN /hpf (0-5); White Blood Cells >100 SEEN /hpf (0-5)
[2024-12-27] MEDS: Cefdinir 300 MG Capsule PO (01:43)
--- NOTE | 2024-12-27 01:44 | EDS_ITS ---
HPI History of Present Illness Chief Complaint: Complaint Informant: patient Narrative Narrative: Present burning with urination since noon yesterday. No fevers back pain abdominal pain vomiting diarrhea. History of UTIs. Penicillin allergy causing rash. 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 Esophageal candidiasis Current use of insulin Back pain due to injury Restless legs Injury of head and neck COPD (chronic obstructive pulmonary disease) High cholesterol History of stress test Depression Chronic pain Non-smoker Sleep apnea Diabetes Hyperlipidemia Hypertension Myocardial infarct Home Medications ?Medication ?Instructions ?Recorded ?Last Taken ?Type metformin 500 mg tablet,extended 500 mg PO BID diabete s 05/02/19 03/18/22 History release 24 hr glipizide 5 mg tablet 5 mg PO BID diabetes 2 03/18/22 History insulin glargine 100 unit/mL (3 10 unit subcut BID mya betes 03/19/22 03/18/22 History mL) subcutaneous pen (Lantus Solostar U-100 Insulin) ondansetron 4 mg disintegrating 4 mg PO Q8H PRN nausea and 04/26/22 Unknown Rx tablet vomiting #10 tabs dicyclomine 20 mg tablet 20 mg PO TID PRN abdominal 1 Unknown Rx cramping #20 tabs diphenoxylate-atropine 2.5 1 tab PO 4X/DAY PRN PRN mya rrhea 5 10/30/22 Unknown Rx mg-0.025 mg tablet (Lomotil) days #20 tabs hydrocortisone 1 % topical cream 1 applic topical TID PRN skin 08/26/23 Unknown Rx irritation #28.4 grams ibuprofen 600 mg tablet 600 mg PO Q8H PRN PRN pain # 20 08/26/23 Unknown Rx TABLETS insulin glargine 100 unit/mL 1 unit subcut QPM 3 Unknown History subcutaneous solution (Lantus U-100 Insulin) levothyroxine 100 mcg tablet 100 mcg PO DAILY 09/29/23 Unknown History magnesium citrate (Citrate of 300 ml PO DAILY PRN cons tipation 12/08/23 Unknown Rx Magnesia oral) #296 mL meclizine 25 mg tablet 25 mg PO TID #30 tabs Unknown Rx cyclobenzaprine 10 mg tablet 10 mg PO TID PRN Muscle S pasm #15 08/10/24 Unknown Rx TABLETS polyethylene glycol 3350 17 17 g PO DAILY PRN constipa tion 10/19/24 Unknown History gram/dose oral powder (Miralax) dicyclomine 20 mg tablet 20 mg PO TID #20 tabs Unknown Rx ondansetron 4 mg disintegrating 4 mg PO Q6H PRN nausea and 11/27/24 Unknown Rx tablet vomiting #20 tabs cefdinir 300 mg capsule 300 mg PO Q12H #14 caps 12/02 05/24 Unknown Rx phenazopyridine 200 mg tablet 200 mg PO TID #10 tabs 0 12/27/24 Unknown Rx (Pyridium) Allergy/AdvReac Type Severity Reaction Status Date / Time diphenhydramine HCl (From Allergy Rash Verified 12/26/24 23:51 Benadryl) Penicillins Allergy Rash Verified 12/26/24 23:51 venom-honey bee (bee venom Allergy Swelling Verified 12/26/24 23:51 (honey bee)) Family History no significant family his Surgical History Hx of left knee surgery Hx of inguinal herniorrhaphy History of coronary artery stent placement Social History household members: none Smoking Status: Never smoker substance use type: does not use ROS ROS ED Constitutional Constitutional ED: Denies chills, fever(s) or sweats ENT ENT ED: Denies sore throat Cardiovascular Cardiovascular: Denies chest pain, leg edema, palpitations or racing heartbeat Respiratory/Chest Respiratory/Chest: Denies cough, dyspnea or dyspnea on exertion Gastrointestinal Gastrointestinal: Denies abdominal pain, diarrhea, nausea or vomiting Genitourinary Genitourinary ED: Reports dysuria; Denies hematuria or urinary frequency Musculoskeletal Musculoskeletal: Denies back pain, extremity pain or neck pain Integumentary Denies rash or wounds Neurologic Neurologic: Denies headache(s), paresthesias or weakness EXAM Physical Exam Const Vital Signs: 12/26/24 23:51 Temperature 97.9 F Temperature Source Temporal Pulse Rate 87 Respiratory Rate 18 Blood Pressure 111/78 Blood Pressure Mean 89 Pulse Ox 98 Oxygen Delivery Method Room Air Positive well nourished and well developed General Appearance ED: well developed and NAD HEENT Reports moist mucous membranes normocephalic and atraumatic Eyes General Eye ED: Yes normal appearance of both eyes Neck full ROM Chest Wall Chest: Negative for tenderness Resp normal respiratory effort and normal air movement Effort and Inspection: symmetric chest movement; Negative for respiratory distress Cardio regular rate, regular rhythm and no murmurs Peripheral Pulses: pulses 2+ throughout GI normal to inspection, nondistended, normoactive bowel sounds and non-tender Palpation: Negative for guarding or rebound tenderness present Back/Spine no CVA tenderness Extremity normal to inspection General Extremety ED: Negative for edema or tenderness General Extremity: Negative for edema Neuro oriented x3 and no sensory deficits noted Sensorium / Orientation: awake and alert Skin no rashes or lesions noted and no wounds MDM MDM MDM Narrative Medical decision making narrative: Interventions / MDM: Differential diagnosis: Urinary tract infection Diagnosis considered but do not suspect: No clinical pyelonephritis, no clinical kidney stone concerns. My EKG interpretation: N/A Imaging independently reviewed and interpreted by myself: N/A External documents reviewed: N/A Test considered but not ordered:N/A ED course: Vital stable nontoxic. Urine was sent positive for infection. Urine culture sent. He started on cefdinir And Pyridium. Prescriptions to his pharmacy. Outpatient follow-up with his doctor. All questions were answered. Re-evaluation: stable Disposition discussed with patient/family/significant other: Patient Case discussed with consulting clinician: N/A This note was generated with [employer] dictation software. It may contain incorrect words, spelling, and punctuation that were not noted in checking the note before signing. Lab Data Attestation: I reviewed the patient's lab results. Labs: Laboratory Results - last 24 hr 12/27/24 00:15 Urine Color Yellow Urine Clarity Turbid Urine pH 6.0 Ur Specific [place] 1.015 Urine Protein 500 H Urine Glucose (UA) 1000 H Urine Ketones Negative Urine Occult Blood 250 H Urine Nitrite Positive H Urine Bilirubin Negative Urine Urobilinogen Normal Ur Leukocyte Esterase 500 H Urine RBC 25-50 SEEN Urine WBC >100 SEEN Ur Squamous Epith Cells 0 SEEN Urine Bacteria 3+ Urine Mucus 0 SEEN Discharge Plan Triage Chief Complaint: Complaint ED Provider: Panchito Castillo Dx/Rx/DC Orders Clinical Impression: Acute UTI, Dysuria Instructions: Urinary Tract Infections in Men Prescriptions: New phenazopyridine [Pyridium] 200 mg tablet 200 mg PO TID Qty: 10 0RF cefdinir 300 mg capsule 300 mg PO Q12H Qty: 14 0RF No Action metformin 500 MG tablet 500 mg PO BID Patient Comments: diabetes insulin glargine [Lantus Solostar U-100 Insulin] 100 unit/mL (3 mL) Insulin Pen 10 unit SUBCUT BID glipizide 5 mg tablet 5 mg PO BID Rx Instructions: Hold if glucose less than 130 mg/dl ondansetron 4 mg tablet,disintegrating 4 mg PO Q8H PRN (Reason: nausea and vomiting) Qty: 10 0RF dicyclomine 20 mg tablet 20 mg PO TID PRN (Reason: abdominal cramping) Qty: 20 0RF diphenoxylate-atropine [Lomotil] 2.5-0.025 mg tablet 1 tab PO 4X/DAY PRN PRN (Reason: diarrhea) 5 Days Qty: 20 0RF meclizine 25 mg tablet 25 mg PO TID Qty: 30 0RF magnesium citrate [Citrate of Magnesia] Solution 300 ml PO DAILY PRN (Reason: constipation) Qty: 296 0RF Rx Instructions: Drink one half bottle if no bowel movement within 4 hours drink the second half of the bottle ibuprofen 600 mg tablet 600 mg PO Q8H PRN PRN (Reason: pain) Qty: 20 0RF hydrocortisone 1 % cream 1 applic topical TID PRN (Reason: skin irritation) Qty: 28.4 0RF levothyroxine 100 mcg tablet 100 mcg PO DAILY Patient Comments: Take 1 tab by mouth once daily on an empty stomach insulin glargine [Lantus U-100 Insulin] 100 unit/mL solution 1 unit subcut QPM cyclobenzaprine 10 mg tablet 10 mg PO TID PRN (Reason: Muscle Spasm) Qty: 15 0RF polyethylene glycol 3350 [Miralax] 17 gram/dose powder 17 g PO DAILY PRN (Reason: constipation) dicyclomine 20 mg tablet 20 mg PO TID Qty: 20 0RF ondansetron 4 mg tablet,disintegrating 4 mg PO Q6H PRN (Reason: nausea and vomiting) Qty: 20 0RF Primary Care Provider: Care Physician,No Primary Referrals: Care Physician,No Primary [Primary Care Provider] - Activity Restrictions/Additional Instructions: Urine with infection. Urine culture sent. Taking finish antibiotic prescribed. Pyridium for dysuria symptoms. Follow-up with your doctor. Print Language: Greek Disposition Disposition: Home, Self Care
[2024-12-27] MEDS: Phenazopyridine 95 MG Tablet 190 MG PO (01:45)
[2024-12-27 01:46] VITALS: BP 129/80; PULSE 82; RESP 18; TEMP 36.6; O2SAT 95
== END 2024-12-27 01:49 | disposition home or self-care (01) ==
PROVIDERS: Emergency Provider Emergency Medicine; Visit Provider Emergency Medicine
DX: N39.0 Urinary tract infection, site not specified (principal); J44.9 Chronic obstructive pulmonary disease, unspecified; E11.9 Type 2 diabetes mellitus without complications; G47.30 Sleep apnea, unspecified; I25.2 Old myocardial infarction; Z95.5 Presence of coronary angioplasty implant and graft
CPT/HCPCS: 81001; 87077; 87086; 87088; 87186; 99282

== ENCOUNTER 2025-02-16 04:01 | Emergency (ER) | payer OTHER, MEDICAID, SELFPAY ==
[2025-02-16 04:01] VITALS: BP 129/80; PULSE 66; RESP 19; TEMP 37; O2SAT 98; BMI 24.7
[2025-02-16 04:22] LABS: Bedside Glucose 414 mg/dL (74-106)
[2025-02-16] MEDS: 0.9% Normal Saline (1000mL) 1,000 ML 999 ML IV ×2 (04:37→05:48)
[2025-02-16 04:43] LABS: Absolute Lymphocyte Count 1.39 X10^3/uL (0.83-4.51); Absolute Neutrophil Count 6.4 X10^3/uL (2.0-7.7); Basophil# 0.04 X10^3/uL; Basophil% 0.5 % (0-1); Eosinophil# 0.21 X10^3/uL; Eosinophils% 2.4 % (0-5); Hematocrit 34.5 % (40-54); Hemoglobin 12.2 g/dL (13.0-16.5); Lymphocyte # 1.39 X10^3/ul (0.83-4.51); Mean Corp Hgb Conc 35.4 g/dL (32-36); Mean Corpuscular Volume 79.3 fL (80-94); Mean Platelet Vol. 8.8 fl (6.2-12.0); Monocyte# 0.62 X10^3/uL; Monocyte% 7.1 % (0-10); NRBC Flagged by Analyzer 0 % (0-5); Neutrophil % 73.5 % (47-70); Platelet Count 230 K/mm3 (150-450); RBC Distribution Width CV 12.9 % (11.6-14.6); RBC Distribution Width SD 36.9 fl (35.1-43.9); Red Blood Count 4.35 M/mm3 (4.6-6.2); White Blood Count 8.7 K/mm3 (4.4-11.0)
--- NOTE | 2025-02-16 04:50 | RAD_ITS ---
PROCEDURE: CHEST PA AND LATERAL 02/16/2025 REASON FOR EXAM: COUGH TECHNIQUE: Frontal and lateral views of the chest. Lateral and 2 frontal views to include the entire chest, 3 total images COMPARISON: 03/08/2024 FINDINGS: Small linear band at the right lower lung consistent with scar again seen. The lungs otherwise appear clear. No pleural effusion. Pulmonary vascularity appears within limits. The cardiac and mediastinal contours appear within limits. The visualized osseous structures appear within limits. RAD/Chest PA and Lateral IMPRESSION: No evidence of acute disease. Reading Location: [id number]
[2025-02-16 04:59] LABS: BETA-HYDROXYBUTYRATE 0.1 mmol/L (0.0-0.3)
[2025-02-16 05:05] LABS: Anion Gap 10 (5-15); BUN 14 mg/dL (4-19); Calcium,Total 9.2 mg/dL (7.6-11.0); Carbon Dioxide 27.2 mmol/L (21.0-32.0); Chloride 94 mmol/L (98-108); EST Glomerular Filtration Rate 96 (>60); Glucose 453 mg/dL (70-99); Potassium 3.9 mmol/L (3.3-5.1); Sodium Level 131 mmol/L (133-145)
[2025-02-16 05:50] LABS: Blood Gas Specimen Type VEN; O2 Delivery Device Not entered; SITE Not entered; VBG BASE EXCESS 8 mmol/L (-1.0-3.5); VBG Bicarbonate 33 mmol/L (22-26); VBG PO2 46 mmHg (25-40); VBG SO2 80 % (50-70); VBG TCO2 34 mmol/L (23-33); VBG pCO2 54.5 mmHg (41-51); VBG pH 7.39 (7.32-7.42)
[2025-02-16 06:01] VITALS: BP 109/66; PULSE 60; RESP 17; O2SAT 98
[2025-02-16 06:40] LABS: Bacteria 0 SEEN /hpf (None Seen); Mucous, Urine 0 SEEN /hpf (<or=2+); Red Blood Cells-Urine 0 SEEN /hpf (0-5); Squamous Epithelial Cells - UA 0 SEEN /hpf (0-5)
[2025-02-16 07:09] LABS: Color, Urine Yellow (Yellow); Glucose, Dipstick 1000 mg/dl (Normal); Ketone-Dipstick Negative (Negative); Leukocyte Esterase-Dipstick 500 /ul (Negative); Nitrite-Dipstick Positive (Negative); Occult Blood-Urine 150 /ul (Negative); Protein-Dipstick 100 mg/dl (Negative); Urine Bilirubin Dipstick Negative (Negative); Urine Clarity Turbid (Clear); Urine Urobilinogen Normal (Normal)
[2025-02-16 07:11] LABS: Bedside Glucose 341 mg/dL (74-106)
[2025-02-16] MEDS: Insulin Lispro 100 UNIT/ML INSULN.PEN 8 UNIT SC (07:11)
[2025-02-16 07:15] LABS: White Blood Cells >100 SEEN /hpf (0-5)
--- NOTE | 2025-02-16 07:36 | EDS_ITS ---
HPI History of Present Illness Chief Complaint: General Illness Informant: patient Narrative Narrative: Patient is a 64-year-old male with past medical history of hypertension hypothyroidism hyperlipidemia and insulin-dependent diabetes. He states that over the past 2 to 3 days he has had increased congestion and cough. He reports with this he just feels weak. He states that he is concerned he is developing infection secondary to his symptoms and therefore comes in for evaluation [facility] Medical History (Updated 02/16/25 @ 07:[address] 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 Esophageal candidiasis Current use of insulin Back pain due to injury Restless legs Injury of head and neck COPD (chronic obstructive pulmonary disease) High cholesterol History of stress test Depression Chronic pain Non-smoker Sleep apnea Diabetes Hyperlipidemia Hypertension Myocardial infarct Home Medications ?Medication ?Instructions ?Recorded ?Last Taken ?Type metformin 500 mg tablet,extended 500 mg PO BID diabete s 05/02/19 03/18/22 History release 24 hr glipizide 5 mg tablet 5 mg PO BID diabetes 2 03/18/22 History insulin glargine 100 unit/mL (3 10 unit subcut BID mya betes 03/19/22 03/18/22 History mL) subcutaneous pen (Lantus Solostar U-100 Insulin) hydrocortisone 1 % topical cream 1 applic topical TID PRN skin 08/26/23 Unknown Rx irritation #28.4 grams ibuprofen 600 mg tablet 600 mg PO Q8H PRN PRN pain # 20 08/26/23 Unknown Rx TABLETS insulin glargine 100 unit/mL 1 unit subcut QPM 3 Unknown History subcutaneous solution (Lantus U-100 Insulin) levothyroxine 100 mcg tablet 100 mcg PO DAILY 09/29/23 Unknown History cyclobenzaprine 10 mg tablet 10 mg PO TID PRN Muscle S pasm #15 08/10/24 Unknown Rx TABLETS aspirin 81 mg tablet,delayed 81 mg PO DAILY 02/16/25 U nknown History release (Adult Aspirin Regimen) doxycycline hyclate 100 mg capsule 100 mg PO BID 7 day s #14 caps 02/16/25 Unknown Rx
--- NOTE | 2025-02-16 07:36 | EX.ED.DYSGE1 ---
HPI History of Present Illness Chief Complaint: General Illness Informant: patient Narrative Narrative: Patient is a 64-year-old male with past medical history of hypertension hypothyroidism hyperlipidemia and insulin-dependent diabetes. He states that over the past 2 to 3 days he has had increased congestion and cough. He reports with this he just feels weak. He states that he is concerned he is developing infection secondary to his symptoms and therefore comes in for evaluation [facility] Medical History (Updated 02/16/25 @ 07:[address] 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 Esophageal candidiasis Current use of insulin Back pain due to injury Restless legs Injury of head and neck COPD (chronic obstructive pulmonary disease) High cholesterol History of stress test Depression Chronic pain Non-smoker Sleep apnea Diabetes Hyperlipidemia Hypertension Myocardial infarct Home Medications ?Medication ?Instructions ?Recorded ?Last Taken ?Type metformin 500 mg tablet,extended 500 mg PO BID diabetes 05/02/19 03/18/22 History release 24 hr glipizide 5 mg tablet 5 mg PO BID diabetes 03/19/22 03/18/22 History insulin glargine 100 unit/mL (3 10 unit subcut BID diabetes 03/19/22 03/18/22 History mL) subcutaneous pen (Lantus Solostar U-100 Insulin) hydrocortisone 1 % topical cream 1 applic topical TID PRN skin 08/26/23 Unknown Rx irritation #28.4 grams ibuprofen 600 mg tablet 600 mg PO Q8H PRN PRN pain #20 08/26/23 Unknown Rx TABLETS insulin glargine 100 unit/mL 1 unit subcut QPM 09/29/23 Unknown History subcutaneous solution (Lantus U-100 Insulin) levothyroxine 100 mcg tablet 100 mcg PO DAILY 09/29/23 Unknown History cyclobenzaprine 10 mg tablet 10 mg PO TID PRN Muscle Spasm #15 08/10/24 Unknown Rx TABLETS aspirin 81 mg tablet,delayed 81 mg PO DAILY 02/16/25 Unknown History release (Adult Aspirin Regimen) doxycycline hyclate 100 mg capsule 100 mg PO BID 7 days #14 caps 02/16/25 Unknown Rx Allergy/AdvReac Type Severity Reaction Status Date / Time diphenhydramine HCl (From Allergy Rash Verified 02/16/25 04:01 Benadryl) Penicillins Allergy Rash Verified 02/16/25 04:01 venom-honey bee (bee venom Allergy Swelling Verified 02/16/25 04:01 (honey bee)) Family History no significant family his Surgical History (Updated 02/16/25 @ 04:02 by Betty Avendaño) H/O hernia repair Hx of left knee surgery Hx of inguinal herniorrhaphy History of coronary artery stent placement Social History household members: none Smoking Status: Never smoker substance use type: does not use ROS ROS ED Constitutional Constitutional ED: Denies chills or fever(s) Eyes Eyes: Denies change in vision ENT ENT ED: Reports rhinorrhea; Denies sore throat Cardiovascular Cardiovascular: Denies chest pain Respiratory/Chest Respiratory/Chest: Reports cough; Denies dyspnea Gastrointestinal Gastrointestinal: Denies abdominal pain, diarrhea, nausea or vomiting Genitourinary Genitourinary ED: Denies dysuria Musculoskeletal Musculoskeletal: Denies myalgias Integumentary Denies rash Neurologic Neurologic: Reports weakness; Denies headache(s) Hematologic/Lymphatic Hematologic/Lymphatic: Denies easy bleeding or easy bruising EXAM Physical Exam Const Vital Signs: 02/16/25 04:01 02/16/25 04:01 02/16/25 06:01 Temperature 98.6 F Temperature Source Oral Pulse Rate 66 60 Respiratory Rate 19 H 17 Respiratory Effort Normal Respiratory Pattern Normal Blood Pressure 129/80 H 109/66 Blood Pressure Mean 96 80 Pulse Ox 98 98 Oxygen Delivery Method Room Air 02/16/25 07:41 Temperature 98 F Temperature Source Pulse Rate 77 Respiratory Rate 19 H Respiratory Effort Respiratory Pattern Blood Pressure 107/98 H Blood Pressure Mean 101 Pulse Ox 99 Oxygen Delivery Method Positive well nourished and well developed General Appearance ED: well developed HEENT Reports dry mucous membranes HEENT Narrative: No tongue or lip swelling no oral lesions no airway edema or compromise There is mild cobblestoning in the posterior pharynx consistent with sinus drainage; no secondary findings to suggest infection Mucous membranes are mildly dry and tacky Mouth ED: Yes dry mucous membranes Mouth: dry mucous membranes Eyes PERRL and EOMs intact bilaterally General Eye ED: Negative for scleral icterus Neck supple and no JVD Neck Narrative: No nuchal rigidity or meningeal signs Resp normal respiratory effort and clear to auscultation bilaterally Resp Narrative: Breath sounds are diminished throughout but overall clear to auscultation without signs of respiratory distress Cardio regular rate and regular rhythm Rate: other Other Details: Radial and carotid pulses are equal and symmetric GI normal to inspection, nondistended, normoactive bowel sounds, non-tender, non-distended and no masses GI Narrative: No voluntary guarding or rigidity or pulsatile mass Auscultation: normoactive bowel sounds Palpation: soft Extremity normal to inspection Neuro oriented x3, CN's II-XII intact bilaterally and no sensory deficits noted Neuro Narrative: GCS of 15 Cranial nerves II through XII are grossly intact without focal neurologic deficit No pronator drift no dysmetria no truncal ataxia NIH stroke scale score of 0 Sensorium / Orientation: alert Motor Exam: strength 5/5 throughout Psych Psych Narrative: Patient has a flat affect Skin no rashes or lesions noted Skin Narrative: No overlying soft tissue skin changes to suggest trauma or infection MDM MDM MDM Narrative Medical decision making narrative: Patient arrived to the ER with stable vital. He reported generalized weakness without focal deficit and therefore there is no need to activate an acute stroke alert. With his report of cough preceding the weakness there is concern for viral infection such as COVID influenza or RSV. Patient could also have potential pneumonia. With his diabetes there is also concern for DKA or HHS or UTI causing symptoms. I discussed with patient the possibility of checking for COVID influenza and RSV but he does not want a swab obtained. He has agreed to blood work urine sample and chest x-ray. Chest x-ray revealed no acute findings. Blood work revealed hyperglycemia but no signs of DKA or HHS as his serum bicarb and anion gap are normal and his serum osmolality is 292. Urine sample was positive for nitrate and multiple white blood cells. There is no bacteria present but with his diabetes there is concern that this is a precursor to developing UTI. His previous chart was reviewed and his last urine sample from December of this year was positive for staph and sensitive to doxycycline. Therefore the patient was given a dose of this in the ER and prescribed for home. However with IV fluids his blood sugar reduced and he was medicated with 8 units of subcu insulin on a sliding scale to further reduce the hyperglycemia. But this time he does not have signs of sepsis he does not have signs of DKA or HHS there is no acute kidney injury and he is not hypoxic or in respiratory distress so he is otherwise safe for discharge with symptomatic care History & Record Review Discussion w/independent historian: Patient Lab Data Attestation: I reviewed the patient's lab results. Labs: Laboratory Results - last 24 hr 02/16/25 02/16/25 02/16/25 04:04 04:38 06:36 WBC 8.7 RBC 4.35 L Hgb 12.2 L Hct 34.5 L MCV 79.3 L MCH 28.0 MCHC 35.4 RDW Std Deviation 36.9 RDW Coeff of Manjinder 12.9 Plt Count 230 MPV 8.8 Immature Gran % (Auto) 0.500 Neut % (Auto) 73.5 H Lymph % (Auto) 16.0 L [place] % (Auto) 7.1 Eos % (Auto) 2.4 Baso % (Auto) 0.5 Absolute Neuts (auto) 6.4 Absolute Lymphs (auto) 1.39 Nucleated RBC % 0 Sodium 131 L Potassium 3.9 Chloride 94 L Carbon Dioxide 27.2 Anion Gap 10 BUN 14 Creatinine 0.90 Estim Creat Clear Calc 104.50 Est GFR (MDRD) Non-Af 96 BUN/Creatinine Ratio 16.0 Glucose 453 H* Calcium 9.2 b-Hydroxybutyric mmol/L 0.1 Urine Color Yellow Urine Clarity Turbid Urine pH 6.0 Ur Specific [place] 1.010 Urine Protein 100 H Urine Glucose (UA) 1000 H Urine Ketones Negative Urine Occult Blood 150 H Urine Nitrite Positive H Urine Bilirubin Negative Urine Urobilinogen Normal Ur Leukocyte Esterase 500 H Urine RBC 0 SEEN Urine WBC >100 SEEN Ur Squamous Epith Cells 0 SEEN Urine Bacteria 0 SEEN Urine Mucus 0 SEEN POC Glucose 414 H 02/16/25 06:53 WBC RBC Hgb Hct MCV MCH MCHC RDW Std Deviation RDW Coeff of Manjinder Plt Count MPV Immature Gran % (Auto) Neut % (Auto) Lymph % (Auto) [place] % (Auto) Eos % (Auto) Baso % (Auto) Absolute Neuts (auto) Absolute Lymphs (auto) Nucleated RBC % Sodium Potassium Chloride Carbon Dioxide Anion Gap BUN Creatinine Estim Creat Clear Calc Est GFR (MDRD) Non-Af BUN/Creatinine Ratio Glucose Calcium b-Hydroxybutyric mmol/L Urine Color Urine Clarity Urine pH Ur Specific [place] Urine Protein Urine Glucose (UA) Urine Ketones Urine Occult Blood Urine Nitrite Urine Bilirubin Urine Urobilinogen Ur Leukocyte Esterase Urine RBC Urine WBC Ur Squamous Epith Cells Urine Bacteria Urine Mucus POC Glucose 341 H ABG Data ABG results: ABG 02/16/25 05:47 Specimen Type GRACY Sample Site Not entered VBG pH 7.39 VBG pO2 46 H VBG HCO3 33 H VBG Total CO2 34 H VBG O2 Sat (Calc) 80 H VBG Base Excess 8 H POC Mix VBG pCO2 Pt Tmp 54.5 H O2 Delivery Device Not entered Radiography Diagnostic Testing: Clinical Impression(s) from Imaging Studies Chest X-Ray 02/16/25 04:50 IMPRESSION: No evidence of acute disease. Reading Location: [facility] Chest x-ray as interpreted by the emergency medicine physician reveals no acute infiltrate pneumothorax or pleural effusion Discharge Plan Triage Chief Complaint: General Illness ED Provider: Johann Lemons Dx/Rx/DC Orders Clinical Impression: Hyperglycemia, Viral upper respiratory tract infection with cough, Insulin dependent diabetes mellitus, Essential hypertension, HLD (hyperlipidemia) Instructions: ED Diabetic Hyperglycemia, ED Viral Syndrome (Adult) Prescriptions: New doxycycline hyclate 100 mg capsule 100 mg PO BID 7 Days Qty: 14 0RF No Action metformin 500 MG tablet 500 mg PO BID Patient Comments: diabetes insulin glargine [Lantus Solostar U-100 Insulin] 100 unit/mL (3 mL) Insulin Pen 10 unit SUBCUT BID glipizide 5 mg tablet 5 mg PO BID Rx Instructions: Hold if glucose less than 130 mg/dl ibuprofen 600 mg tablet 600 mg PO Q8H PRN PRN (Reason: pain) Qty: 20 0RF hydrocortisone 1 % cream 1 applic topical TID PRN (Reason: skin irritation) Qty: 28.4 0RF levothyroxine 100 mcg tablet 100 mcg PO DAILY Patient Comments: Take 1 tab by mouth once daily on an empty stomach insulin glargine [Lantus U-100 Insulin] 100 unit/mL solution 1 unit subcut QPM cyclobenzaprine 10 mg tablet 10 mg PO TID PRN (Reason: Muscle Spasm) Qty: 15 0RF aspirin [Adult Aspirin Regimen] 81 mg tablet,delayed release (DR/EC) 81 mg PO DAILY Primary Care Provider: Care Physician,No Primary Referrals: Bernard Desai MD [Med Staff - Active Staff] - Care Physician,No Primary [Primary Care Provider] - Activity Restrictions/Additional Instructions: Your workup today did not show any signs of DKA or HHS. Your x-ray did not reveal any signs of pneumonia. Your urine sample does show changes concerning for developing infection and with your congestion and cough but overall negative workup you also have a viral upper respiratory tract infection. Both of these illnesses can be driving up your blood sugar and making you feel weak. Please take the antibiotic as directed secondary to your urine sample showing signs of infection and continue to treat your blood sugar as directed by your doctor. Stay well-hydrated and return to the ER should you have any further concerns Print Language: Micronesian Disposition Disposition: Home, Self Care Discharge Date/Time: 02/16/25 07:48
[2025-02-16] MEDS: Doxycycline 100 MG CAPSULE PO (07:40)
[2025-02-16 07:41] VITALS: BP 107/98; PULSE 77; RESP 19; TEMP 36.6; O2SAT 99
[2025-02-16 08:03] LABS: Bedside Glucose 340 mg/dL (74-106)
== END 2025-02-16 07:48 | disposition home or self-care (01) ==
PROVIDERS: Emergency Provider Emergency Medicine; Visit Provider Emergency Medicine
DX: J06.9 Acute upper respiratory infection, unspecified (principal); J44.9 Chronic obstructive pulmonary disease, unspecified; E11.65 Type 2 diabetes mellitus with hyperglycemia; Z79.4 Long term (current) use of insulin; I10 Essential (primary) hypertension; I25.2 Old myocardial infarction; E03.9 Hypothyroidism, unspecified; E78.00 Pure hypercholesterolemia, unspecified; Z95.5 Presence of coronary angioplasty implant and graft; Z79.84 Long term (current) use of oral hypoglycemic drugs; Z79.82 Long term (current) use of aspirin; Z79.890 Hormone replacement therapy; Z79.899 Other long term (current) drug therapy
CPT/HCPCS: 71046; 80048; 81001; 82010; 82803; 82962; 85025; 87077; 87086; 87088; 87186; 96360; 96361; 99284

== ENCOUNTER 2025-03-26 20:08 | Emergency (ER) | payer OTHER, MEDICAID, SELFPAY ==
[2025-03-26 20:09] VITALS: BP 146/76; PULSE 71; RESP 18; TEMP 36.4; O2SAT 99
[2025-03-26 21:56] VITALS: BMI 25.2
--- NOTE | 2025-03-26 22:05 | ED.VIS.BACK ---
HPI History of Present Illness Chief Complaint: Back [facility] Medical History (Updated 03/26/25 @ 22:[address] 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 Esophageal candidiasis Current use of insulin Back pain due to injury Restless legs Injury of head and neck COPD (chronic obstructive pulmonary disease) High cholesterol History of stress test Depression Chronic pain Non-smoker Sleep apnea Diabetes Hyperlipidemia Hypertension Myocardial infarct Home Medications ?Medication ?Instructions ?Recorded ?Last Taken ?Type metformin 500 mg tablet,extended 500 mg PO BID diabetes 05/02/19 03/18/22 History release 24 hr glipizide 5 mg tablet 5 mg PO BID diabetes 03/19/22 03/18/22 History insulin glargine 100 unit/mL (3 10 unit subcut BID diabetes 03/19/22 03/18/22 History mL) subcutaneous pen (Lantus Solostar U-100 Insulin) hydrocortisone 1 % topical cream 1 applic topical TID PRN skin 08/26/23 Unknown Rx irritation #28.4 grams ibuprofen 600 mg tablet 600 mg PO Q8H PRN PRN pain #20 08/26/23 Unknown Rx TABLETS insulin glargine 100 unit/mL 1 unit subcut QPM 09/29/23 Unknown History subcutaneous solution (Lantus U-100 Insulin) levothyroxine 100 mcg tablet 100 mcg PO DAILY 09/29/23 Unknown History cyclobenzaprine 10 mg tablet 10 mg PO TID PRN Muscle Spasm #15 08/10/24 Unknown Rx TABLETS aspirin 81 mg tablet,delayed 81 mg PO DAILY 02/16/25 Unknown History release (Adult Aspirin Regimen) doxycycline hyclate 100 mg capsule 100 mg PO BID 7 days #14 caps 02/16/25 Unknown Rx Allergy/AdvReac Type Severity Reaction Status Date / Time diphenhydramine HCl (From Allergy Rash Verified 03/26/25 20:09 Benadryl) Penicillins Allergy Rash Verified 03/26/25 20:09 venom-honey bee (bee venom Allergy Swelling Verified 03/26/25 20:09 (honey bee)) Family History no significant family his Surgical History H/O hernia repair Hx of left knee surgery Hx of inguinal herniorrhaphy History of coronary artery stent placement Social History household members: none Smoking Status: Never smoker substance use type: does not use EXAM Physical Exam Const Vital Signs: 03/26/25 20:09 Temperature 97.6 F L Temperature Source Temporal Pulse Rate 71 Respiratory Rate 18 Blood Pressure 146/76 H Blood Pressure Mean 99 Pulse Ox 99 Oxygen Delivery Method Room Air [facility] MDM MDM Narrative Medical decision making narrative: HISTORY OF PRESENT ILLNESS: Chief complaint: Back pain 64-year-old male history of hypertension, hypothyroid and hyperlipidemia, type 2 diabetes presents with concern for restless legs and back pain. No falls reported. The patient is a poor historian and does not give much history. States my back hurts. Then states I already told you. However the patient denies any saddle anesthesia, urinary retention, bowel or bladder incontinence, lower extremity weakness, fever or IV drug use, no recent spinal manipulation or surgery, no recent urinary catheterization. REVIEW OF SYSTEMS: Pertinent positives: Back pain Pertinent negatives: Bowel or bladder incontinence, urinary tension, saddle anesthesia PHYSICAL EXAM: Nursing triage notes reviewed, Vital signs reviewed Constitutional: please see md Neck: No stridor, no JVD, full neck ROM Lungs: Clear to auscultation, No wheezing or rales. No increased work of breathing, no conversational dyspnea, no accessory muscle use, no nasal flaring. No respiratory distress noted Heart: Regular rate and rhythm, No murmurs, No rubs and No gallops, 2+ distal pulses (radial, femoral, posterior tibial) in all extremities Abdomen: Soft, there is no tenderness, rigidity, rebound or guarding, no obvious peritoneal signs, no palpable pulsatile abdominal masses, no auscultated abdominal bruit : No CVAT Extremities: No edema Neuro: No new focal neurological deficits, cranial nerves II through XII intact, 5/5 strength in all present extremities. Intact sensation to light touch in all present extremities, 2+ reflexes bilateral patella tendons. Skin: No rash or lesions noted MEDICAL DECISION MAKING: Chief Complaint: please see HPI External records reviewed: Reviewed prior imaging studies Factors affecting care: as per HPI Social determinants of health: none History obtained from others: none Consults: none [facility] Narrative: The patient was initially hemodynamically stable, afebrile and nontoxic-appearing. Exam without obvious focal lower extremity neurovascular deficits. I considered the following differential diagnosis: Musculoskeletal back pain, lumbar radiculopathy, space-occupying lesion of the spine (conus medullary's, epidural abscess,, cauda syndrome) I Offered the patient initial pain control however patient refused became agitated, rude and walked out prior to pain control being given or reassessment being complete. Patient eloped from the ED with a non-ataxic gait. The patient and/or family, caregivers express understanding. The patient and/or family, caregivers agrees with the plan. Shared decision making: I will have a discussion with the patient and or visitors regarding risk/benefits of further testing or admission. They will be made aware of of the risk/benefits inherent in this decision they will be given the opportunity to voice understanding. Total critical care time today provided was at least 0 minutes. This excludes separately billable procedures. Critical care time (if documented) is secondary to the patient having high probability of clinically significant/life threatening deterioration in the patient's condition which required my urgent intervention. Impression: 1. Acute back pain 2. History of alcohol abuse Dispo: Eloped from ED This note was generated with [employer] dictation software. It may contain incorrect words, spelling, and punctuation that were not noted in review of the chart prior to signing. Discharge Plan Triage Chief Complaint: Back ED Provider: Buster Pereyra Dx/Rx/DC Orders Clinical Impression: Back pain Instructions: ED Back Care Tips Prescriptions: No Action metformin 500 MG tablet 500 mg PO BID Patient Comments: diabetes insulin glargine [Lantus Solostar U-100 Insulin] 100 unit/mL (3 mL) Insulin Pen 10 unit SUBCUT BID glipizide 5 mg tablet 5 mg PO BID Rx Instructions: Hold if glucose less than 130 mg/dl ibuprofen 600 mg tablet 600 mg PO Q8H PRN PRN (Reason: pain) Qty: 20 0RF hydrocortisone 1 % cream 1 applic topical TID PRN (Reason: skin irritation) Qty: 28.4 0RF levothyroxine 100 mcg tablet 100 mcg PO DAILY Patient Comments: Take 1 tab by mouth once daily on an empty stomach insulin glargine [Lantus U-100 Insulin] 100 unit/mL solution 1 unit subcut QPM cyclobenzaprine 10 mg tablet 10 mg PO TID PRN (Reason: Muscle Spasm) Qty: 15 0RF aspirin [Adult Aspirin Regimen] 81 mg tablet,delayed release (DR/EC) 81 mg PO DAILY doxycycline hyclate 100 mg capsule 100 mg PO BID 7 Days Qty: 14 0RF Primary Care Provider: Care Physician,No Primary Referrals: Bernard Desai MD [Med Staff - Active Staff] - Activity Restrictions/Additional Instructions: Thank you for trusting us with your care today! Please take Tylenol (2 pills, 650 mg), ibuprofen (2 pills, 400 mg) every 6 hours as needed for pain and fever control. Please return to the emergency department if your symptoms change or worsen. Please follow with your primary care physician for further outpatient evaluation and management. Print Language: Amharic Disposition Disposition: Home, Self Care Discharge Date/Time: 03/26/25 22:27
--- NOTE | 2025-03-26 22:24 | ED.RN ---
Patient walks into the hallway stating get me the hell out of here he then states that doctor is a prick Patient proceeds to leave prior to discharge.
== END 2025-03-26 22:27 | disposition home or self-care (01) ==
PROVIDERS: Emergency Provider Emergency Medicine; Visit Provider Emergency Medicine
DX: M54.9 Dorsalgia, unspecified (principal); J44.9 Chronic obstructive pulmonary disease, unspecified; E11.9 Type 2 diabetes mellitus without complications; I25.2 Old myocardial infarction; Z95.5 Presence of coronary angioplasty implant and graft
CPT/HCPCS: 99282

== ENCOUNTER 2025-04-21 10:50 | Emergency (ER) | payer OTHER, SELFPAY ==
[2025-04-21 10:51] VITALS: BP 134/78; PULSE 80; RESP 16; TEMP 36.5; O2SAT 99
--- NOTE | 2025-04-21 11:05 | EDS_ITS ---
HPI History of Present Illness Chief Complaint: Fall Detail of Chief Complaint: Mechanical fall complains of knee giving out since fall Informant: patient Onset/Context/Timing Onset: Hours (Less than 1 hour ago) Mechanism/Context: Blunt Injury and Fall Location of pain/injuries: Left knee Location: Left knee suffer traumatic injury. He complains of pain left knee and unus Current Severity: Mild Maximum Severity: Mild Worsened by: Nothing specific Relieved by: Nothing Associated Symptoms Associated Symptoms: Negative for Parasthesias, Weakness, Loss of function, Inability to ambulate, Loss of consciousness or Amnesia Narrative Narrative: Patient is a 65-year-old male with multiple medical problems which includes alcohol abuse, pancreatitis, type 2 diabetes, hyperosmolar nonketotic coma, hypothyroidism, essential hypertension and coronary disease. He was walking fell and sustained an abrasion and trauma to the anterior left knee. He states it is not painful just feels weird and his knee gives out. He has never been diagnosed with diabetic neuropathy. He does endorse symptoms consistent with claudication and has a short-distance claudication. Patient denies head injury. Patient denies neck pain. Patient denies paresthesia, anesthesia or motor weakness upper extremity. He states he has had abnormal sensation of his feet for some time as well as legs. He denies chest pain, tightness or pressure. He denies shortness of breath. He denies black or maroon-colored stool. 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 Esophageal candidiasis Current use of insulin Back pain due to injury Restless legs Injury of head and neck COPD (chronic obstructive pulmonary disease) High cholesterol History of stress test Depression Chronic pain Non-smoker Sleep apnea Diabetes Hyperlipidemia Hypertension Myocardial infarct Home Medications ?Medication ?Instructions ?Recorded ?Last Taken ?Type metformin 500 mg tablet,extended 500 mg PO BID diabete s 05/02/19 03/18/22 History release 24 hr glipizide 5 mg tablet 5 mg PO BID diabetes 2 03/18/22 History insulin glargine 100 unit/mL (3 10 unit subcut BID mya betes 03/19/22 03/18/22 History mL) subcutaneous pen (Lantus Solostar U-100 Insulin) hydrocortisone 1 % topical cream 1 applic topical TID PRN skin 08/26/23 Unknown Rx irritation #28.4 grams ibuprofen 600 mg tablet 600 mg PO Q8H PRN PRN pain # 20 08/26/23 Unknown Rx TABLETS insulin glargine 100 unit/mL 1 unit subcut QPM 3 Unknown History subcutaneous solution (Lantus U-100 Insulin) levothyroxine 100 mcg tablet 100 mcg PO DAILY 09/29/23 Unknown History cyclobenzaprine 10 mg tablet 10 mg PO TID PRN Muscle S pasm #15 08/10/24 Unknown Rx TABLETS aspirin 81 mg tablet,delayed 81 mg PO DAILY 02/16/25 U nknown History release (Adult Aspirin Regimen) doxycycline hyclate 100 mg capsule 100 mg PO BID 7 day s #14 caps 02/16/25 Unknown Rx gabapentin 100 mg capsule 100 mg PO TID #90 caps 04/21 Unknown Rx Allergy/AdvReac Type Severity Reaction Status Date / Time diphenhydramine HCl (From Allergy Rash Verified 04/21/25 10:51 Benadryl) Penicillins Allergy Rash Verified 04/21/25 10:51 venom-honey bee (bee venom Allergy Swelling Verified 04/21/25 10:51 (honey bee)) Surgical History H/O hernia repair Hx of left knee surgery Hx of inguinal herniorrhaphy History of coronary artery stent placement Social History household members: none Smoking Status: Never smoker substance use type: does not use ROS ROS ED Musculoskeletal Musculoskeletal: Denies arthralgias, back pain, myalgias or neck pain Integumentary Denies rash Neurologic Neurologic: Reports paresthesias RLE and LLE and weakness Hematologic/Lymphatic Hematologic/Lymphatic: Denies easy bleeding or easy bruising EXAM Physical Exam Const Vital Signs: 04/21/25 10:50 04/21/25 10:51 04/21/25 11:50 Temperature 97.7 F L Temperature Source Oral Pulse Rate 80 78 Respiratory Rate 16 14 Respiratory Effort Normal Respiratory Depth Normal Respiratory Pattern Normal Blood Pressure 134/78 H 139/76 H Blood Pressure Mean 96 97 Pulse Ox 99 98 Oxygen Delivery Method Room Air Room Air Room Air Positive well nourished and well developed General Appearance ED: well developed and NAD HEENT HEENT Narrative: Patient has evidence of prior abrasion to the right maxillary area. This is well-healed. There is no evidence infection. atraumatic; Negative for tenderness Nose: Negative for septum abnormal Eyes PERRL and EOMs intact bilaterally General Eye ED: Yes other Other Details: There is no subconjunctival hemorrhage. Neck full ROM General: Negative for tenderness Chest Wall inspection of chest normal and palpation of chest normal Resp normal respiratory effort and clear to auscultation bilaterally Cardio regular rhythm, S1 normal heart sound, S2 normal heart sound and no murmurs Rate: regular rate GI normal to inspection, nondistended, normoactive bowel sounds, non-tender, non- distended and no masses GI Narrative: There is no pain ovation of the right or left iliac bone, right or left ischial tuberosity or pubic symphysis. Auscultation: normoactive bowel sounds Back/Spine no thoracic nor lumbar tenderness Extremity full ROM; Negative for normal to inspection Extremity Narrative: Patient has abrasion that is acute and old over the left knee. He has minimal joint line tenderness. There is no laxity varus valgus stress testing. Tim's test was negative. Modified Brandon's test is negative. There is no mass or fullness in the popliteal fossa. PT and DP pulse are palpable however he does have stigmata of microvascular disease with lack of hair and thickened toenails. Neuro oriented x3, CN's II-XII intact bilaterally, moves all extremities, no focal motor deficits and No no sensory deficits noted Neuro Narrative: Patient reports altered sensation of his right and left leg and feet. Maple Coma Scale: document GCS findings Spontaneous Obeys Commands Oriented 15 Sensorium / Orientation: alert Deep Tendon Reflexes: Rt Patellar (L4): 1+, Lt Patellar (L4): 1+, Rt Ankle (S1): 1+ and Lt Ankle (S1): 1+ Deep Tendon Reflexes Back: Rt Patellar (L4): 1+, Lt Patellar (L4): 1+, Rt Ankle (S1): 1+ and Lt Ankle (S1): 1+ Plantar Reflex: Downgoing: bilateral Psych mental status grossly normal and thought process normal Skin Trauma: abrasion MDM MDM MDM Narrative Medical decision making narrative: Patient fell probably for multiple reasons diabetic neuropathy, oversized shoes and possible autonomic dysfunction. Because of his knee trauma and pain x-ray was obtained to evaluate contusion with abrasion versus fracture. Radiography Chest X-Ray - ED: Read by ED Physician (4 view x-ray of the left knee reveals degenerative arthritic changes. There is a small effusion. There is no evidence of fracture, subluxation dislocation.) Diagnostic Testing: Clinical Impression(s) from Imaging Studies Knee X-Ray 04/21/25 11:11 IMPRESSION: No acute process detected. [facility] Treatment and Re-Evaluation Narrative: Patient was formed of his x-ray results. Patient was informed that his pain and numbness is due to his diabetic neuropathy. He was started on gabapentin. He was instructed to follow-up with his doctor for dose adjustments. Discharge Plan Triage Chief Complaint: Fall ED Provider: Ar Calle Dx/Rx/DC Orders Clinical Impression: Contusion of left knee, initial encounter, Coronary atherosclerosis of [place] coronary artery, Essential hypertension, HLD (hyperlipidemia), History of ETOH abuse, Abrasion, left knee, initial encounter, Diabetic neuropathy Instructions: ED Abrasion, ED Contusion, Lower Extremity, ED Neuropathy, Peripheral Prescriptions: New gabapentin 100 mg capsule 100 mg PO TID Qty: 90 0RF No Action metformin 500 MG tablet 500 mg PO BID Patient Comments: diabetes insulin glargine [Lantus Solostar U-100 Insulin] 100 unit/mL (3 mL) Insulin Pen 10 unit SUBCUT BID glipizide 5 mg tablet 5 mg PO BID Rx Instructions: Hold if glucose less than 130 mg/dl ibuprofen 600 mg tablet 600 mg PO Q8H PRN PRN (Reason: pain) Qty: 20 0RF hydrocortisone 1 % cream 1 applic topical TID PRN (Reason: skin irritation) Qty: 28.4 0RF levothyroxine 100 mcg tablet 100 mcg PO DAILY Patient Comments: Take 1 tab by mouth once daily on an empty stomach insulin glargine [Lantus U-100 Insulin] 100 unit/mL solution 1 unit subcut QPM cyclobenzaprine 10 mg tablet 10 mg PO TID PRN (Reason: Muscle Spasm) Qty: 15 0RF aspirin [Adult Aspirin Regimen] 81 mg tablet,delayed release (DR/EC) 81 mg PO DAILY doxycycline hyclate 100 mg capsule 100 mg PO BID 7 Days Qty: 14 0RF Primary Care Provider: Care Physician,No Primary Referrals: Care Physician,No Primary [Primary Care Provider] - Doctor,Your [Non-Staff] - 1-2 Weeks Activity Restrictions/Additional Instructions: Call your doctor for follow-up. The name of your doctor is located on your [facility] Print Language: [place] Disposition Disposition: Home, Self Care
--- NOTE | 2025-04-21 11:11 | RAD_ITS ---
PROCEDURE: KNEE 4 OR MORE VIEWS 04/21/2025 REASON FOR EXAM: INJURY/PAIN Initial encounter TECHNIQUE: KNEE 4 OR MORE VIEWS COMPARISON: None. FINDINGS: Bones: No fracture. No dislocation. Joints: Cartilage thinning and periarticular osteophytes indicate osteoarthritis Effusion: None. Soft tissues: Unremarkable Other: RAD/Knee 4 or More Views IMPRESSION: No acute process detected. Reading [facility]
--- OUTSIDE RECORDS SUMMARY | 2025-04-21 11:33 | XMS RPT_ITS | CCD ---
Author Organization [facility] Care Team Providers Care Facilities Project Manager Name Role Phone Unavailable Primary Care Provider Unavailabl e Care Physician, No Primary Primary Care Provider Unavailable Dr. Antonette Dominguez Emergency Provider [phone] Vicky Mckeon Admit Provider Dr. Vicky Mckeon Other Provider Friend, Dr. Fulton Attending Provider Dr. Jayesh Perez Referring Provider Dr. Jayesh Perez Attending Provider Dr. Jayesh Perez Other Provider Dr. Live Ashley Emergency Provider Dr. Linden Jurado Admit Provider Dr. Linden Jurado Attending Provider Dr. Linden Jurado Other Provider Dr. Vicky Mckeon Attending Provider Care Physician, No Primary Primary Care Provider Unavailable Dr. Vicky Mckeon Other Provider Unavailable Primary Care Provider Unavailabl e Unavailable Primary Care Provider Unavailabl e Dr. Linden Chavez DO Primary Care Provider Dr. Live Ashley MD Attending Provider Dr. Live Ashley MD Emergency Provider Dr. Johann Lemons DO Attending Provider Dr. Johann Lemons DO Emergency Provider Dr. Pedro Krishnan DO Attending Provider Dr. Pedro Krishnan DO Emergency Provider Care Physician, No Primary Primary Care Provider Unavailable Barry Mathew MD Attending Provider Barry Mathew MD Emergency Provider Shailesh TRACY, Dr. Holly Attending Provider Dr. Avni Cash MD Emergency Provider Anna SUMMERS, Dr. Flanagan Attending Provider Anna SUMMERS, Dr. Flanagan Emergency Provider Ariella SUMMERS, Dr. Vasquez Attending Provider Ariella SUMMERS, Dr. Vasquez Emergency Provider Care Physician, No Primary Primary Care Provider Unavailable Barry Mathew MD Attending Provider Barry Mathew MD Emergency Provider Shailesh TRACY, Dr. Holly Attending Provider Shailesh TRACY, Dr. Holly Emergency Provider Anna SUMMERS, Dr. Flanagan Attending Provider Anna SUMMERS, Dr. Flanagan Emergency Provider Cristo SUMMERS, Dr. Wills Attending Provider Dr. Johann Lemons DO Emergency Provider Roddy DO, Dr. Goins Emergency Provider Care Physician, No Primary Primary Care Unava ilable Johann Lemons Attending Unavailable Care Physician, No Primary Primary Care Unava ilable Panchito Castillo Attending Unavailable Care Physician, No Primary Primary Care Unava ilable Avni Cash Attending Unavailable Care Physician, No Primary Primary Care Unava ilable Barry Mathew Attending Unavailable Care Physician, No Primary Primary Care Unava ilable Pedro Krishnan Attending Unavailable Scott, Linden Primary Care Unavailable Johann Lemons Attending Unavailable Live Ashley Attending Unavailable Scott, Linden Primary Care Unavailable Scott, Linden Primary Care Unavailable Adam Allen Attending Unavailable Scott, Linden Primary Care Unavailable Johann Lemons Attending Unavailable Scott, Linden Primary Care Unavailable Shania Disla Attending Unavailable Scott, Linden Primary Care Unavailable Johann Lemons Attending Unavailable Buster Pereyra Attending Unavailable Care Physician, No Primary Primary Care Unava ilable Allergies Allergy Classification Reported Allergen(s) Allergy Type Date of Onset Reaction(s) Facility (20 sources) bee venom Propensity to adverse reactions to drug 9 [place], [place] (2 sources) diphenhydrAMINE; Translations: [DIPHENHYDRAMINE] Drug Allergy 1 [place], [place] (8 sources) Penicillins; Translations: [PENICILLINS] Propensity to adverse reactions to drug 1 [place], [place] (20 sources) diphenhydrAMINE; Translations: [diphenhydramine HCl] Drug Allergy 2 [facility] (20 sources) Penicillins Allergy to substance 2 [facility] (3 sources) diphenhydrAMINE Drug Allergy 1 [facility] Work Phone: (3 sources) Penicillins Drug Allergy 1 [facility] Work Phone: (4 sources) Bee Sting; Translations: [BEE STING] Allergy to substance 1 [facility] Work Phone: (1 source) Penicillins Drug allergy (disorder) 5 [facility] (1 source) venom-honey bee Drug allergy (disorder) 5 [facility] Medications Current Medications Medication Drug Class(es) Dates Sig (Normalized) Sig (Original) [id number] 200 actuat albuterol 0.09 mg/actuat metered dose inhaler (3 sources) beta2-Adrenergic Agonist Start: 01-08-2020 take 2 puff(s) by inhalation every four hours as needed albuterol HFA (VENTOLIN HFA) 90 mcg/actuation inhaler Indications: Chronic obstructive pulmonary disease, unspecified COPD type (HCC) Inhale 2 Puffs as instructed every 4 hours as needed. 1 Inhaler 11 01/08/2020 Active Comment on above: Inhale 2 Puffs as in structed every 4 hours as needed. aspirin 81 mg delayed release oral tablet (20 sources) Platelet Aggregation Inhibitor, Nonsteroidal Anti-inflammatory Drug Start: 02-16-2025 take 1 tablet by mouth once daily Aspirin (Adult Aspirin Regimen) 81 mg tablet,delayed release (DR/EC) Active 81 mg PO DAILY February 16, 2025 12:00am Start: 06-13-2020 take 1 tablet by tom th once daily aspirin, enteric coated (ASPIRIN, ENTERIC COATED) 81 mg EC tablet Take 1 tablet by mouth once daily. 30 tablet 11 06/13/2020 Active Start: 11-26-2013 End: 11-26-2013 take 1 tablet by mouth once daily Aspirin 81 MG Tab.Chew Discontinued 81 mg PO DAILY@0800 November 26, 2013 1:00am November 26, 2013 5:18pm take 1 tablet by tom th once daily aspirin 81 MG tablet Take 81 mg by mouth daily 0 Active Comment on above: Take 1 tablet by tom th once daily. atorvastatin 40 mg oral tablet (4 sources) HMG-CoA Reductase Inhibitor Start: 01-31-20 take 1 tablet by mouth once daily for hyperlipidemia atorvastatin (LIPITOR) 40 mg tablet Indications: Diabetes mellitus, type II, insulin dependent (HCC) Take 1 tablet by mouth once daily for 14 days. For cholesterol 14 tablet 01/30/2021 Active take 1 tablet by mouth once junior y atorvastatin (LIPITOR) 40 MG tablet Take 40 mg by mouth daily 0 Active Comment on above: Take 1 tablet by tom th once daily for 14 days. For cholesterol bisacodyl 10 mg rectal suppository (1 source) Stimulant Laxative Start: 10-05-20 bisacodyl (DULCOLAX) suppository 10 mg cetirizine hydrochloride 10 mg oral tablet (1 source) Histamine-1 Receptor Antagonist Start: 12-14-19 End: 12-28-19 take 1 tablet by mouth once daily cetirizine (ZYRTEC) 10 mg tablet Indications: Eustachian tube dysfunction, bilateral Take 1 tablet by mouth once daily for 14 days. 14 tablet 12/14/2024 12/28/2024 Active cyclobenzaprine hydrochloride 10 mg oral tablet (20 sources) Muscle Relaxant Start: 08-26-20 23 End: 08-10-20 24 take 1 tablet by mouth three times daily as needed for muscle spasms Cyclobenzaprine 10 mg tablet Active 10 mg PO THREE TIMES A DAY as needed for Muscle Spasm August 10, 2024 12:00am Start: 10-06-2019 End: 10-06-2019 cyclobenzaprine (FLEXERIL) t ablet 10 mg Start: 06-22-2016 End: 11-14-2016 take 1 tablet by mouth three times daily as needed for muscle spasms Cyclobenzaprine 10 MG tablet Discontinued 10 mg PO THREE TIMES A DAY as needed for Muscle Spasm June 22, 2016 12:00am November 14, 2016 10:55am doxycycline hyclate 100 mg oral capsule (20 sources) Tetracycline-class Drug Start: 02-16-2025 take 1 capsule by mouth twice daily Doxycycline Hyclate 100 mg capsule Active 100 mg PO TWICE A DAY 14 February 16, 2025 12:00am Start: 10-27-2018 End: 11-06-2018 take 1 capsule by mouth twice daily Doxycycline Hyclate 100 MG capsule Discontinued 100 mg PO TWICE A DAY 20 October 27, 2018 1:00am November 05, 2018 1:00am November 06, 2018 1:09am empagliflozin 10 mg oral tablet (3 sources) Sodium-Glucose Cotransporter 2 Inhibitor Start: 01-01-2021 take 1 tablet by mouth once daily, then take 1 tablet by mouth once daily in the morning empagliflozin (JARDIANCE) 10 mg tablet Indications: Diabetes mellitus, type II, insulin dependent (HCC) Take 1 tablet by mouth once daily. Take 1 tablet once daily in the morning 30 tablet 1 01/01/2021 Active Comment on above: Take 1 tablet by tom once daily. Take 1 tablet once daily in the morning 0.4 ml enoxaparin sodium 100 mg/ml prefilled syringe (1 source) Low Molecular Weight Heparin Start: 10-05-2019 enoxaparin (LOVENOX) injection 40 mg flash glucose scanning reader (FREESTYLE CLAUDIA 14 DAY READER) misc (3 sources) Start: 03-08-2019 flash glucose scanning reader (FREESTYLE CLAUDIA 14 DAY READER) misc 1 Device four times daily. 1 Each 03/08/2019 Active Start: 03-08-2019 flash glucose scanning reader (FREESTYLE CLAUDIA 14 DAY READER) misc 1 Device four times daily. 1 Each 0 03/08/2019 Active Comment on above: 1 Device four times daily. flash glucose sensor (FREESTYLE CLAUDIA 14 DAY SENSOR) kit (3 sources) Start: 03-08-20 flash glucose sensor (FREESTYLE CLAUDIA 14 DAY SENSOR) kit 1 Device four times daily. 2 Kit 3 03/08/2019 Active Comment on above: 1 Device four times daily. fluticasone propionate 0.05 mg/actuat metered dose nasal spray (1 source) Corticosteroid Start: 12-14-19 take 1 spray(s) nasal route once daily fluticasone (FLONASE ALLERGY RELIEF) 50 mcg/actuation nasal spray Indications: Eustachian tube dysfunction, bilateral Use 1 [place] in each nostril once daily. 9.9 mL 12/14/2024 Active gabapentin 300 mg oral capsule (3 sources) Anti-epileptic Agent Start: 11-12-19 take 1 capsule by mouth once daily at bedtime gabapentin (NEURONTIN) 300 mg capsule Indications: Lumbar radiculopathy Take 1 capsule by mouth daily at bedtime for 30 days. 30 capsule 11/12/2019 Active Comment on above: Take 1 capsule by [facility] daily at bedtime for 30 days. glucagon (rdna) 1 mg injection (1 source) Antihypoglycemic Agent Start: 10-05-20 glucagon (rDNA) injection 1 mg 150 ml glucose 50 mg/ml injection (3 sources) Start: 10-05-20 glucose (GLUTOSE) 40 % oral gel 15 g Start: 10-05-2019 dextrose 50 % IV solution Start: 10-05-2019 dextrose 5 % s olution hydrocortisone 10 mg/ml topical cream (14 sources) Corticosteroid Start: 08-26-2023 Hydrocortisone 1 % cream Active 1 NMA TOPICAL THREE TIMES A DAY as needed for skin irritation 28.4 August 26, 2023 12:00am ibuprofen 600 mg oral tablet (20 sources) Nonsteroidal Anti-inflammatory Drug Start: 05-12-2023 End: 09-29-2023 take 1 tablet by mouth every eight hours as needed for pain Ibuprofen 600 mg tablet Active 600 mg PO EVERY 8 HOURS NEEDED as needed for pain August 26, 2023 12:00am 3 ml insulin glargine 100 unt/ml pen injector (20 sources) Insulin Analog Start: 03-19-2022 Insulin Glargine (Lantus Solostar U-100 Insulin) 100 unit/mL (3 mL) Insulin Pen Active 10 U SC TWICE A DAY March 19, 2022 12:00am Start: 03-19-2022 Start: 04-30-2019 inject 82 [IU] by kennedy bcutaneous injection once daily before breakfast insulin glargine (LANTUS U-100 INSULIN) 100 unit/mL injection Indications: Diabetes mellitus, type II, insulin dependent (HCC) Inject 82 Units subcutaneously daily before breakfast. 3 Vial 5 04/30/2019 Active Start: 03-07-2017 End: 05-12-2019 inject 84 [IU] by subcutaneous injection once daily Insulin Glargine 100 UNITS/ML insulin pen Discontinued 84 U subcut DAILY May 02, 2019 1:35pm May 12, 2019 10:34am Start: 03-06-2017 End: 03-07-2017 Insulin Glargine (Lantus Farrah ostar U-100 Insulin) 100 UNITS/ML Pen Discontinued 82 U SC DAILY March 06, 2017 12:56am March 07, 2017 8:35am Start: 12-01-2016 End: 03-06-2017 Insulin Glargine (Lantus Farrah ostar U-100 Insulin) 100 UNITS/ML Pen Discontinued 60 U SC DAILY 0 December 01, 2016 12:28pm March 06, 2017 12:56am Start: 08-16-2013 End: 12-01-2016 Insulin Glargine (Lantus Farrah ostar Pen) 100 UNITS/ML Pen Discontinued 82 U SC DAILY August 16, 2013 12:00am December 01, 2016 12:29pm Start: 08-16-2013 End: 05-12-2019 Start: 08-16-2013 End: 12-01-2016 Insulin Glargine (Lantus Farrah ostar Pen) 100 UNITS/ML Pen Discontinued 82 UNITS SC DAILY August 16, 2013 12:00am December 01, 2016 12:29pm Comment on above: Inject 82 Units subc utaneously daily before breakfast. Insulin Glargine (Lantus Solostar U-100 Insulin) 100 unit/mL (3 mL) Insulin Pen (4 sources) Start: 03-19-2022 Insulin Glargine (Lantus Solostar U-100 Insulin) 100 unit/mL (3 mL) Insulin Pen Active 10 UNIT SC TWICE A DAY March 19, 2022 5:37pm Start: 03-19-2022 Insulin Glargi ne (Lantus Solostar U-100 Insulin) 100 unit/mL (3 mL) Insulin Pen Active 10 UNIT SC TWICE A DAY March 19, 2022 12:00am Insulin Glargine (Lantus U-1 00 Insulin) 100 unit/mL solution (20 sources) Start: 09-29-2023 Insulin Glargi ne (Lantus U-100 Insulin) 100 unit/mL solution Active 1 U SC EVERY EVENING September 29, 2023 1:00am Start: 09-29-2023 Insulin Glargi ne (Lantus U-100 Insulin) 100 unit/mL solution Active 1 UNIT SC EVERY EVENING September 29, 2023 1:00am Start: 09-29-2023 Insulin Glargi ne (Lantus U-100 Insulin) 100 unit/mL solution Active 1 UNIT SC EVERY EVENING September 29, 2023 12:00am Start: 12-11-2022 End: 09-29-2023 Insulin Glargine (Lantus U-1 00 Insulin) 100 unit/mL solution Discontinued 10 U SC EVERY EVENING December 11, 2022 1:00am September 29, 2023 9:51pm Start: 12-11-2022 End: 09-29-2023 Insulin Glargine (Lantus U-1 00 Insulin) 100 unit/mL solution Discontinued 10 UNIT SC EVERY EVENING December 11, 2022 1:00am September 29, 2023 9:51pm Start: 12-11-2022 End: 09-29-2023 Insulin Glargine (Lantus U-1 00 Insulin) 100 unit/mL solution Discontinued 10 UNIT SC EVERY EVENING December 11, 2022 12:00am September 29, 2023 8:51pm Start: 12-11-2022 Insulin Glargi ne (Lantus U-100 Insulin) 100 unit/mL solution Active 10 UNIT SC EVERY EVENING December 11, 2022 1:00am Start: 12-11-2022 Insulin Glargi ne (Lantus U-100 Insulin) 100 unit/mL solution Active 10 UNIT SC EVERY EVENING December 11, 2022 12:00am 3 ml insulin lispro 100 unt/ml pen injector (20 sources) Insulin Analog Start: 10-05-2019 End: 10-06-2019 insulin lispro (HUMALOG) injection vial 0-12 Units Start: 05-12-2019 End: 01-03-2020 inject 18 [IU] by subcutaneous injection three times daily before mealtime Insulin Lispro 100 UNIT/ML insulin pen Discontinued 18 U subcut THREE TIMES DAILY BEFORE MEALS May 12, 2019 12:00am January 03, 2020 5:21pm Start: 05-12-2019 End: 01-03-2020 insulin lispro (ADMELOG SOLO STAR U-100 INSULIN) 100 unit/mL inpn Indications: Diabetes mellitus, type II, insulin dependent (HCC) Inject 13 Units subcutaneously three times daily before meals. 2 Pen 2 10/18/2019 Active insulin lispro ( ADMELOG) 100 UNIT/ML injection vial Inject 13 Units into the skin 3 times daily (before meals) 0 Active Comment on above: Inject 13 Units subc utaneously three times daily before meals. isopropyl alcohol 0.7 ml/ml medicated pad (3 sources) Start: 09-05-20 15 Alcohol Swabs (ALCOHOL PADS) padm Indications: Diabetes mellitus, type II, insulin dependent (HCC) , Diabetes mellitus, type II, insulin dependent (HCC) Use to cleanse skin prior to giving insulin 150 Each 11 09/05/2015 Active Comment on above: Use to cleanse skin prior to giving insulin levothyroxine sodium 0.1 mg oral tablet (17 sources) l-Thyroxine Start: 09-29-20 23 take 1 tablet by mouth once daily Levothyroxine 100 mcg tablet Active 100 ug PO DAILY September 29, 2023 1:00am Start: 12-06-2020 take 1 tablet by tom th once daily for thyroid dysfunction levothyroxine (SYNTHROID) 175 mcg tablet Take 1 tablet by mouth once daily. Take on empty stomach. For Thyroid. 90 tablet 1 12/06/2020 Active take 1 tablet by mouth once junior y levothyroxine (SYNTHROID) 175 MCG tablet Take 175 mcg by mouth Daily 0 Active Comment on above: Take 1 tablet by tom th once daily. Take on empty stomach. For Thyroid. lisinopril 20 mg oral tablet (4 sources) Angiotensin Converting Enzyme Inhibitor Start: 1 take 1 tablet by mouth once daily lisinopril (ZESTRIL, PRINIVIL) 20 mg tablet Indications: Essential hypertension with goal blood pressure less than 130/80 Take 1 tablet by mouth once daily. 30 tablet 1 01/01/2021 Active take 1 tablet by mouth once junior y lisinopril (PRINIVIL;ZESTRIL) 10 MG tablet Take 10 mg by mouth daily 0 Active Comment on above: Take 1 tablet by tom th once daily. naproxen 500 mg oral tablet (3 sources) Nonsteroidal Anti-inflammatory Drug Start: 9 take 1 tablet by mouth twice daily at mealtime naproxen (NAPROSYN) 500 mg tablet Indications: Trapezius strain, left, initial encounter Take 1 tablet by mouth twice daily with meals. 20 tablet 09/12/2019 Active Comment on above: Take 1 tablet by tom th twice daily with meals. omeprazole 20 mg delayed release oral capsule (4 sources) Proton Pump Inhibitor Start: 1 take 1 capsule by mouth once daily before breakfast omeprazole (PRILOSEC) 20 mg capsule Indications: GERD without esophagitis Take 1 capsule by mouth daily before breakfast for 14 days. 1/2 hr before meal. 14 capsule 01/30/2021 Active take 1 capsule by mouth once aaron ly omeprazole (PRILOSEC) 20 MG delayed release capsule Take 20 mg by mouth daily 0 Active Comment on above: Take 1 capsule by mo [facility] daily before breakfast for 14 days. 1/2 hr before meal. Oral Medication Containers misc (3 sources) Start: 04-26-2014 Oral Medication Containers misc Indications: Diabetes mellitus, type II, insulin dependent (HCC) , Hypertension , Coronary artery disease , Hypothyroidism Use as directed 1 Each 0 04/26/2014 Active Comment on above: Use as directed 3 ml sodium chloride 9 mg/ml injection (5 sources) Start: 10-05-2019 sodium chloride flush 0.9 % injection 10 mL Start: 10-05-2019 End: 10-06-2019 0.9 % sodium chloride infusi on (2 sources) Start: 09-29-2023 Start: 12-11-2022 End: 09-29-2023 Completed/Discontinued Medications Medication Drug Class(es) Dates Sig (Normalized) Sig (Original) acetaminophen 325 mg / HYDROcodone bitartrate 5 mg oral tablet (20 sources) Opioid Agonist Start: 06-22-2016 End: 11-14-2016 Hydrocodone-Acetami nophen 1 TABLET tablet Discontinued 1 - 2 {tbl} PO EVERY 4 HOURS NEEDED as needed for Pain June 22, 2016 12:00am November 14, 2016 10:55am Start: 06-22-2016 End: 11-14-2016 Start: 06-22-2016 End: 11-14-2016 take 1 tablet by mouth every four hours as needed Hydrocodone-Acetaminophen Discontinued 1 - 2 TABLET PO EVERY 4 HOURS NEEDED June 22, 2016 12:00am November 14, 2016 10:55am acetaminophen 325 mg / oxyCODONE hydrochloride 5 mg oral tablet (2 sources) Opioid Agonist Start: 08-10-2024 End: 10-19-2024 Oxycodone-Acetaminophen 5-32 5 mg tablet Discontinued 1 {tbl} PO EVERY 6 HOURS NEEDED as needed for Pain 10 02August 10, 2024 October 19, 2024 5:01am Start: 08-10-2024 End: 10-19-2024 alogliptin 25 mg oral tablet (20 sources) Start: 09-02-2017 End: 05-03-2019 take 1 tablet by mouth once daily Alogliptin 25 MG tablet Discontinued 25 mg PO DAILY May 02, 2019 1:35pm May 03, 2019 8:59am atropine sulfate 0.025 mg / diphenoxylate hydrochloride 2.5 mg oral tablet (20 sources) Anticholinergic, Cholinergic Muscarinic Antagonist, Antidiarrheal Start: 10-30-2022 End: 02-16-2025 Diphenoxylate-Atro pine (Lomotil) 2.5-0.025 mg tablet Discontinued 1 {tbl} PO 4 TIMES DAILY NEEDED as needed for diarrhea 19 03October 30, 2022 4:58am February 16, 2025 4:05am Start: 10-30-2022 End: 02-16-2025 canagliflozin 100 mg oral tablet (20 sources) Sodium-Glucose Cotransporter 2 Inhibitor Start: 12-12-2014 End: 05-03-2019 take 1 tablet by mouth once daily Canagliflozin (Invokana) 100 MG tablet Discontinued 100 mg PO DAILY December 12, 2014 1:00am May 03, 2019 8:59am cefdinir 300 mg oral capsule (2 sources) Cephalosporin Antibacterial Start: 12-27-2024 End: 02-16-2025 take 1 capsule by mouth every twelve hours Cefdinir 300 mg capsule Discontinued 300 mg PO Q12H December 27, 2024 1:00am February 16, 2025 4:05am ciprofloxacin 500 mg oral tablet (13 sources) Quinolone Antimicrobial Start: 09-29-2023 End: 05-18-2024 take 1 tablet by mouth twice daily Ciprofloxacin Hcl (Cipro) 500 mg tablet Discontinued 500 mg PO TWICE A DAY September 29, 2023 1:00am May 18, 2024 8:10am dicyclomine hydrochloride 20 mg oral tablet (20 sources) Anticholinergic Start: 08-07-2022 End: 02-16-2025 take 1 tablet by mouth three times daily Dicyclomine 20 mg tablet Discontinued 20 mg PO THREE TIMES A DAY November 27, 2024 1:00am February 16, 2025 4:05am fluconazole 200 mg oral tablet (20 sources) Azole Antifungal Start: 01-07-2022 End: 08-10-2024 take 1 tablet by mouth once daily Fluconazole (Diflucan) 200 mg tablet Discontinued 200 mg PO DAILY March 19, 2022 11:37pm August 10, 2024 3:38am glipiZIDE 5 mg oral tablet (20 sources) Sulfonylurea Start: 01-07-2022 End: 03-19-2022 take 1 tablet by mouth twice daily Glipizide 5 mg tablet Active 5 mg PO TWICE A DAY March 19, 2022 11:37pm Hold if glucose less than 130 mg/dl Start: 01-07-2022 End: 09-29-2023 take 1 tablet by mouth once daily Glipizide 5 mg tablet Discontinued 5 mg PO DAILY December 11, 2022 1:00am September 29, 2023 9:48pm 12 hr guaiFENesin 600 mg extended release oral tablet (20 sources) Start: 12-01-2016 End: 03-07-2017 take 1 tablet by mouth twice daily Guaifenesin (Mucus Relief Er) 600 MG tablet Discontinued 600 mg PO TWICE A DAY December 01, 2016 1:00am March 07, 2017 8:34am magnesium citrate 58.2 mg/ml oral solution (10 sources) Start: 12-08-2023 End: 02-16-2025 Magnesium Citrate (Citrate Of Magnesia) solution Discontinued 300 mL PO DAILY as needed for constipation 296 December 08, 2023 1:00am February 16, 2025 4:06am Drink one half bottle if no bowel movement within 4 hours drink the second half of the bottle Start: 12-08-2023 End: 02-16-2025 Start: 12-08-2023 Magnesium Citr ate (Citrate Of Magnesia) solution Active 300 ML PO DAILY 296 December 08, 2023 1:00am Drink one half bottle if no bowel movement within 4 hours drink the second half of the bottle 100 ml magnesium sulfate 40 mg/ml injection (1 source) Start: 10-06-2019 End: 10-06-2019 magnesium sulfate 4 g in 100 mL IVPB premix meclizine hydrochloride 25 mg oral tablet (10 sources) Antiemetic Start: 12-08-2023 End: 02-16-2025 take 1 tablet by mouth three times daily Meclizine 25 mg tablet Discontinued 25 mg PO THREE TIMES A DAY 30 December 08, 2023 1:00am February 16, 2025 4:06am metFORMIN hydrochloride 500 mg oral tablet (20 sources) Biguanide Start: 12-11-2022 End: 09-29-2023 take 1 tablet by mouth once daily Metformin 500 mg tablet Discontinued 500 mg PO DAILY 60 December 11, 2022 1:00am September 29, 2023 9:49pm Start: 01-30-2021 take 4 tablets by mo [facility] once daily metFORMIN ER (GLUCOPHAGE XR) 500 mg 24 hr tablet Indications: Diabetes mellitus, type II, insulin dependent (HCC) Take 4 tablets by mouth once daily for 14 days. 56 tablet 01/30/2021 Active Start: 12-01-2016 End: 05-02-2019 take 2 tablets by mouth twice daily at mealtime Metformin 500 MG tablet Discontinued 1000 mg PO TWICE DAILY WITH MEALS December 01, 2016 1:00am May 02, 2019 1:35pm Start: 12-01-2016 End: 05-02-2019 take 1000 mg by mouth twice daily at mealtime Metformin Discontinued 1000 MG PO TWICE DAILY WITH MEALS December 01, 2016 1:00am May 02, 2019 1:35pm Start: 11-30-2016 End: 05-02-2019 take 1 tablet by mouth twice daily Metformin 500 MG tablet Active 500 mg PO TWICE A DAY May 02, 2019 1:35pm Start: 11-30-2016 End: 12-01-2016 take 1 tablet by mouth once daily Metformin 500 MG Tab.Er.24h Discontinued 2000 mg PO DAILY November 30, 2016 1:00am December 01, 2016 12:25pm take 4 tablets by ar ut once daily at breakfast metFORMIN (GLUCOPHAGE-XR) 500 MG extended release tablet Take 2,000 mg by mouth daily (with breakfast) 0 Active Comment on above: Take 4 tablets by mo ut once daily for 14 days. methylPREDNISolone 4 mg oral tablet (20 sources) Corticosteroid Start: 08-16-20 13 End: 11-11-19 14 Methylprednisolone 4 MG Box Discontinued 4 mg PO DIRECTED August 16, 2013 12:00am November 11, 2013 4:50pm Start: 08-16-2013 End: 11-11-2013 metroNIDAZOLE 500 mg oral tablet (13 sources) Nitroimidazole Antimicrobial Start: 09-29-2023 End: 05-18-2024 take 1 tablet by mouth twice daily Metronidazole 500 mg tablet Discontinued 500 mg PO TWICE A DAY 19 08September 29, 2023 1:00am May 18, 2024 8:11am 1 ml morphine sulfate 4 mg/ml cartridge (1 source) Opioid Agonist Start: 10-06-2019 End: 10-06-2019 morphine (PF) injection 2 mg Start: 10-06-2019 End: 10-06-2019 morphine (PF) injection 2 mg ondansetron 4 mg disintegrating oral tablet (20 sources) Serotonin-3 Receptor Antagonist Start: 11-27-2024 End: 02-16-2025 take 1 tablet by mouth every six hours as needed for nausea and vomiting Ondansetron 4 mg tablet,disintegrating Discontinued 4 mg PO EVERY 6 HOURS as needed for nausea and vomiting November 27, 2024 1:00am February 16, 2025 4:06am Start: 04-26-2022 End: 02-16-2025 take 1 tablet by mouth every eight hours as needed for nausea Ondansetron 4 mg tablet,disintegrating Discontinued 4 mg PO EVERY 8 HOURS NEEDED as needed for Nausea December 25, 2023 1:00am March 08, 2024 6:50am Start: 10-05-2019 ondansetron (Z OFRAN) injection 4 mg permethrin 50 mg/ml topical cream (20 sources) Pyrethroid Start: 05-26-2022 End: 09-29-2023 Permethrin (Elimite) 5 % cream Discontinued 1 NMA TOPICAL Q14D 60 May 26, 2022 12:00am September 29, 2023 9:50pm apply second treatment 14 days after first treatment if live lice remain phenazopyridine hydrochloride 200 mg oral tablet (2 sources) Start: 12-27-2024 End: 02-16-2025 take 1 tablet by mouth three times daily Phenazopyridine (Pyridium) 200 mg tablet Discontinued 200 mg PO THREE TIMES A DAY December 27, 2024 1:00am February 16, 2025 4:06am polyethylene glycol 3350 04205 mg powder for oral solution (6 sources) Osmotic Laxative Start: 03-08-2024 End: 02-16-2025 Polyethylene Glycol 3350 (Miralax) 17 gram/dose powder Discontinued 17 g PO DAILY as needed for constipation October 19, 2024 1:00am February 16, 2025 4:06am microencapsulated potassium chloride 10 meq extended release oral tablet (2 sources) Start: 10-06-2019 End: 10-06-2019 potassium chloride (KLOR-CON M) extended release tablet 30 mEq Start: 10-06-2019 End: 10-06-2019 potassium chloride 10 mEq/10 0 mL IVPB (Peripheral Line) predniSONE 10 mg oral tablet (20 sources) Start: 05-26-2022 End: 09-29-2023 Prednisone 10 mg tablet Discontinued 10 mg PO DAILY May 26, 2022 12:00am September 29, 2023 9:50pm 4 pills by mouth days 1 through 3 3 pills by mouth days 4 through 6 2 pills by mouth days 7 through 9 1 pill by mouth days 10 through 12 Start: 02-24-2018 End: 05-12-2019 take 1 tablet by mouth twice daily at mealtime Prednisone 20 MG tablet Discontinued 20 mg PO TWICE A DAY May 02, 2019 1:35pm May 12, 2019 10:34am With food traMADol hydrochloride 50 mg oral tablet (20 sources) Opioid Agonist Start: 07-03-2022 End: 09-29-2023 take 1 tablet by mouth every four hours as needed for pain Tramadol 50 mg tablet Discontinued 50 mg PO EVERY 4 HOURS NEEDED as needed for Pain 12 2 July 03, 2022 12:00am September 29, 2023 9:50pm Problems Active Problems Problem Classification Problem Date Documented Da te Episodic/Chronic Abdominal hernia (20 sources) Hiatal hernia; Translations: [Diaphragmatic hernia without obstruction or gangrene] 10-05-2019 Episodic Acute and unspecified renal failure (20 sources) Injury of kidney; Translations: [Acute kidney failure, unspecified] 05-02-2019 Episodic Alcohol-related disorders (20 sources) History of alcohol abuse; Translations: [Alcohol abuse, in remission] 11-25-2022 Chronic Allergic reactions (14 sources) Inflammatory dermatosis; Translations: [Dermatitis, unspecified] 08-26-2023 Episodic Chronic obstructive pulmonary disease and bronchiectasis (2 sources) Chronic obstructive lung disease; Translations: [Chronic obstructive pulmonary disease, unspecified] Onset: 1 Resolved: 0 11-17-2019 Chronic Chronic obstructive pulmonary disease and bronchiectasis (20 sources) Bronchitis; Translations: [Bronchitis, not specified as acute or chronic] 09-05-2019 Episodic Conditions associated with dizziness or vertigo (20 sources) Dizziness; Translations: [Dizziness and giddiness] 05-02-2019 Episodic Coronary atherosclerosis and other heart disease (20 sources) Old myocardial infarction; Translations: [Old myocardial infarction] Onset: 1 10-12-2015 Chronic Diabetes mellitus with complications (20 sources) Hyperglycemia due to diabetes mellitus; Translations: [Type 2 diabetes mellitus with hyperglycemia] Onset: 5 11-26-2020 Chronic Diabetes mellitus without complication (20 sources) Diabetes mellitus; Translations: [Type 2 diabetes mellitus without complications] Onset: 1 10-31-2019 Chronic Diabetes mellitus without complication (20 sources) Hyperglycemia; Translations: [Acute hyperglycemia] Episodic Disorders of lipid metabolism (20 sources) Hyperlipidemia; Translations: [Hyperlipidemia, unspecified] 01-13-2020 Chronic Essential hypertension (20 sources) Essential hypertension; Translations: [Essential (primary) hypertension] Onset: 1 11-25-2022 Chronic Fluid and electrolyte disorders (20 sources) Dehydration; Translations: [Dehydration] 11-25-2022 Episodic Gastritis and duodenitis (20 sources) Gastritis; Translations: [Gastritis, unspecified, without bleeding] 10-06-2019 Episodic Gastrointestinal hemorrhage (12 sources) Black feces; Translations: [Melena] 10-01-2023 Episodic Genitourinary symptoms and ill-defined conditions (5 sources) Increased frequency of urination; Translations: [Frequency of micturition] Onset: 12-16-2024 Episodic Headache; including migraine (20 sources) Headache; Translations: [Headache] 10-17-2019 Episodic Noninfectious gastroenteritis (15 sources) Colitis; Translations: [Noninfective gastroenteritis and colitis, unspecified] 09-29-2023 Episodic Nonspecific chest pain (20 sources) Chest pain; Translations: [Chest pain, unspecified] 05-11-2019 Episodic Other circulatory disease (20 sources) H/O: heart disorder; Translations: [Personal history of other diseases of the circulatory system] 11-25-2022 Episodic Other circulatory disease (20 sources) Transient hypotension; Translations: [Hypotension, unspecified] 03-28-2022 Episodic Other circulatory disease (6 sources) Hypotension, unspecified; Translations: [Nonspecific low blood pressure reading] Episodic Other circulatory disease (20 sources) Syncope due to orthostatic hypotension; Translations: [Orthostatic hypotension] 11-07-2022 Episodic Other disorders of stomach and duodenum (2 sources) Pyloric obstruction; Translations: [Gastric outlet obstruction] Onset: 9 10-05-2019 Episodic Other disorders of stomach and duodenum (20 sources) Gastroparesis syndrome; Translations: [Gastroparesis] 01-15-2022 Episodic Other disorders of stomach and duodenum (5 sources) Gastroparesis; Translations: [Gastroparesis] Episodic Other ear and sense organ disorders (2 sources) Impacted cerumen of bilateral ears; Translations: [Impacted cerumen, bilateral] 08-18-2023 Episodic Other gastrointestinal disorders (20 sources) Diarrhea; Translations: [Diarrhea, unspecified] 01-15-2022 Episodic Other gastrointestinal disorders (11 sources) Diarrhea, unspecified; Translations: [Diarrhea] Episodic Other gastrointestinal disorders (20 sources) Acute diarrhea; Translations: [Diarrhea, unspecified] 03-28-2022 Episodic Other gastrointestinal disorders (9 sources) Constipation; Translations: [Constipation, unspecified] 03-08-2024 Episodic Other infections; including parasitic (20 sources) Infestation by Sarcoptes scabiei manjinder hominis; Translations: [Scabies] 06-03-2022 Episodic Other injuries and conditions due to external causes (20 sources) Heat cramp; Translations: [Heat cramp, initial encounter] 05-20-2019 Episodic Other injuries and conditions due to external causes (20 sources) Heat exposure; Translations: [Effect of heat and light, unspecified, initial encounter] 05-04-2022 Episodic Other lower respiratory disease (2 sources) History of chronic obstructive airway disease; Translations: [Personal history of other diseases of the respiratory system] 12-28-2024 Episodic Other nutritional; endocrine; and metabolic disorders (20 sources) H/O: diabetes mellitus; Translations: [Personal history of other endocrine, nutritional and metabolic disease] 01-16-2022 Episodic Other screening for suspected conditions (not mental disorders or infectious disease) (20 sources) Electrocardiogram abnormal; Translations: [Abnormal electrocardiogram [ECG] [EKG]] 05-02-2019 Episodic Other skin disorders (20 sources) Vesicular eczema; Translations: [Dyshidrosis [pompholyx]] 11-25-2020 Episodic Other upper respiratory infections (20 sources) Viral upper respiratory tract infection; Translations: [Acute upper respiratory infection, unspecified] 08-15-2019 Episodic Otitis media and related conditions (1 source) Dysfunction of bilateral eustachian tubes; Translations: [Unspecified Eustachian tube disorder, bilateral] 12-14-2024 Episodic Pancreatic disorders (not diabetes) (20 sources) Pancreatitis; Translations: [Acute pancreatitis without necrosis or infection, unspecified] 10-05-2019 Episodic Pneumonia (except that caused by tuberculosis or sexually transmitted disease) (20 sources) Pneumonia; Translations: [Pneumonia, unspecified organism] 11-17-2021 Episodic Residual codes; unclassified (20 sources) Noncompliance with treatment; Translations: [Noncompliance] 12-10-2022 Episodic Residual codes; unclassified (14 sources) Altered mental status; Translations: [Altered mental status, unspecified] 08-06-2023 Episodic Spondylosis; intervertebral disc disorders; other back problems (20 sources) Acute low back pain; Translations: [Acute left-sided low back pain] Onset: 1 07-11-2022 Episodic Sprains and strains (20 sources) Strain of neck muscle; Translations: [Strain of muscle, fascia and tendon at neck level, initial encounter] 08-14-2018 Episodic Superficial injury; contusion (20 sources) Contusion of rib; Translations: [Contusion of right front wall of thorax, initial encounter] 05-16-2021 Episodic Syncope (20 sources) Near syncope; Translations: [Syncope and collapse] 12-10-2022 Episodic Thyroid disorders (20 sources) Hypothyroidism; Translations: [Hypothyroidism, unspecified] Onset: 05-11-2019 Chronic Unclassified (1 source) Cough, unspecified; Translations: [Cough, unspecified] Onset: Urinary tract infections (2 sources) Acute urinary tract infection; Translations: [Urinary tract infection, site not specified] 01-04-2025 Episodic Viral infection (20 sources) Viral disease; Translations: [Viral infection, unspecified] 09-15-2020 Episodic Past or Other Problems Problem Classification Problem Date Documented Da te Episodic/Chronic Abdominal pain (20 sources) Generalized abdominal pain; Translations: [Generalized abdominal pain] Onset: 12-12-2024 Episodic Administrative/social admission (3 sources) Patient encounter status; Translations: [Encounter for disability determination] Onset: 11-30-2012 11-30-2012 Episodic Diseases of mouth; excluding dental (3 sources) Xerostomia; Translations: [Dry mouth, unspecified] Onset: 12-26-2024 12-16-2024 Episodic Fracture of lower limb (2 sources) Fracture of ankle; Translations: [Other fracture of left lower leg, initial encounter for closed fracture] Onset: 10-13-2015 Resolved: 09-16-2017 09-16-2017 Episodic Malaise and fatigue (20 sources) Asthenia; Translations: [Weakness] Onset: 11-20-2024 Episodic Nausea and vomiting (20 sources) Nausea; Translations: [Nausea] Onset: 06-07-2024 05-04-2022 Episodic Other connective tissue disease (3 sources) Foot pain; Translations: [Pain in unspecified foot] Onset: 09-17-2011 09-17-2011 Episodic Results Test Name Value Interpretation Reference Range Facility Emergency Department Summary on 03-26-2025 Emergency Department Summary [facility] Medical Records Department [address] [place] [address] Emergency Department Summary 03/26/25 MR#: [id number] Acct: [id number] Name: BENITOJERALDMANASA BYNUM Rep #: [id number] : 1960 64 From: Buster Pereyra DO PCP: Care Physician,No Primary Status:DEP ER Location: ED HPI History of Present Illness Chief Complaint: Back PFSH [facility], [facility] Medical History (Updated 03/26/25 @ 22:[address] 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 Esophageal candidiasis Current use of insulin Back pain due to injury Restless legs Injury of head and neck COPD (chronic obstructive pulmonary disease) High cholesterol History of stress test Depression Chronic pain Non-smoker Sleep apnea Diabetes Hyperlipidemia Hypertension Myocardial infarct Home Medications ???Medication ???Instructions ???Recorded ???Last Taken ???Type metformin 500 mg tablet,extended 500 mg PO BID diabetes 05/02/19 History release 24 hr glipizide 5 mg tablet 5 mg PO BID diabetes 03/19/2202/28 History insulin glargine 100 unit/mL (3 10 unit subcut BID diabetes 03/18/22 History mL) subcutaneous pen (Lantus Solostar U-100 Insulin) hydrocortisone 1 % topical cream 1 applic topical TID PRN skin 08/01 05/22 Unknown Rx irritation #28.4 grams ibuprofen 600 mg tablet 600 mg PO Q8H PRN PRN pain #20 Unknown Rx TABLETS insulin glargine 100 unit/mL 1 unit subcut QPM 09/29/23 Unknown History subcutaneous solution (Lantus U-100 Insulin) levothyroxine 100 mcg tablet 100 mcg PO DAILY 09/29/23 Unknown History cyclobenzaprine 10 mg tablet 10 mg PO TID PRN Muscle Spasm #15 08/10/24 Unknown Rx TABLETS aspirin 81 mg tablet,delayed 81 mg PO DAILY 02/16/25 Unknown Hi story release (Adult Aspirin Regimen) doxycycline hyclate 100 mg capsule 100 mg PO BID 7 days #14 caps Unknown Rx Allergy/AdvReac Type Severity Reaction Status Date / Time diphenhydramine HCl (From Allergy Rash Verified 03/26/25 20:09 Benadryl) Penicillins Allergy Rash Verified 03/26/25 20:09 venom-honey bee (bee venom Allergy Swelling Verified 03/26/25 20:09 (honey bee)) Family History no significant family his Surgical History H/O hernia repair Hx of left knee surgery Hx of inguinal herniorrhaphy History of coronary artery stent placement Social History household members: none Smoking Status: Never smoker substance use type: does not use EXAM Physical Exam Const Vital Signs: 03/26/25 20:09 Temperature 97.6 F L Temperature Source Temporal Pulse Rate 71 Respiratory Rate 18 Blood Pressure 146/76 H Blood Pressure Mean 99 Pulse Ox 99 Oxygen Delivery Method Room Air MDM MDM MDM Narrative Medical decision making narrative: HISTORY OF PRESENT ILLNESS: Chief complaint: Back pain 64-year-old male history of hypertension, hypothyroid and hyperlipidemia, type 2 diabetes presents with concern for restless legs and back pain. No falls reported. The patient is a poor historian and does not give much history. States my back hurts. Then states I already told you. However the patient denies any saddle anesthesia, urinary retention, bowel or bladder incontinence, lower extremity weakness, fever or IV drug use, no recent spinal manipulation or surgery, no recent urinary catheterization. REVIEW OF SYSTEMS: Pertinent positives: Back pain Pertinent negatives: Bowel or bladder incontinence, urinary tension, saddle anesthesia PHYSICAL EXAM: Nursing triage notes reviewed, Vital signs reviewed Constitutional: please see md Neck: No stridor, no JVD, full neck ROM Lungs: Clear to auscultation, No wheezing or rales. No increased work of breathing, no conversational dyspnea, no accessory muscle use, no nasal flaring. No respiratory distress noted Heart: Regular rate and rhythm, No murmurs, No rubs and No gallops, 2+ distal pulses (radial, femoral, posterior tibial) in all extremities Abdomen: Soft, there is no tenderness, rigidity, rebound or guarding, no obvious peritoneal signs, no palpable pulsatile abdominal masses, no auscultated abdominal bruit : No CVAT Extremities: No edema Neuro: No new focal neurological deficits, cranial nerves II through XII intact, 5/5 strength in all present extremities. Intact sensation to light touch in all present extremities, 2+ reflexes bilateral patella tendons. Skin: No rash or lesions noted MEDICAL DECISION MAKING: Chief Complaint: please see HPI External records reviewed: Reviewed prior imaging studies Factors affecting care: as per HPI Social determinants of health (more content not included)... Normal [facility] Urine Cultureon 02-18-2025 [facility] Staphylococcus aureu s [place] Count >100,000 Staphylococcus aureus: REACTION cefOXitin Susc Islt Doxycycline Islt NASRIN <=0.5 S Clindamycin.induced Susc Islt NEG Gentamicin Islt NASRIN <=0.5 S Linezolid Islt NASRIN 2 S Moxifloxacin Islt NASRIN <=0.25 S Nitrofurantoin Islt NASRIN <=16 S Oxacillin Susc Islt 0.5 S Tetracycline Islt NASRIN <=1 S TMP SMX Islt NASRIN <=10 S Vancomycin Islt NASRIN 1 S Normal [facility] Comment on above: Performed By: #### M [id number] ####[facility] [id number] [place], [place], [id number] Absolute lymphocyte countOrd ered By: Johann Lemons on 02-16-2025 Lymphocytes Auto (Unsp spec) [#/Vol] 1.39 10*3/uL 0.83-4.51 [facility] Absolute neutrophil countOrd ered By: Johann Lemons on 02-16-2025 Neutrophils (Bld) [#/Vol] 6.4 10*3/uL 2.0-7.7 [facility] Absolute neutrophil count 6.4 X10^3/uL 2.0-7.7 [facility] Anion gap [Moles/Vol]Ordered By: Johann Lemons on 02-16-2025 Anion gap in Serum or Plasma 10 - [facility] Anion gap in Serum or Plasma Ordered By: Johann Lemons on 02-16-2025 Anion gap [Moles/Vol] 10 mmol/L - [facility] Automated lymphocyte count a s percentage of total leukocytesOrdered By: Johann Lemons on 02-16-2025 Lymphocytes/100 WBC Auto (Unsp spec) 16.0 % Low [facility] BUN/creatinine ratioOrdered By: Johann Lemons on 02-16-2025 Urea nitrogen/Creatinine [Mass ratio] 16.0 mg/mg - [facility] BUN/creatinine ratio 16.0 RATIO - [facility] Base excess Calc (BldV) [Mol es/Vol]Ordered By: Johann Lemons on 02-16-2025 Venous blood base excess measurement 8 mmol/L High -1.0-3.5 [facility] Basic Metabolic Profile (BMP )on 02-16-2025 BUN/CRE 16.0 RATIO Normal 10-20 [facility] Comment on above: Performed By: #### L 100.0100, L500.2500, [id number] #### [facility] [address] [place], [address] Calcium [Mass/Vol] 9.2 mg/dL Normal 7.6-11.0 [facility] Comment on above: Performed By: #### L 100.0100, L500.2500, [id number] #### [facility] [address] [place], [address] Chloride [Moles/Vol] 94 mmol/L Low 98-108 [facility] Comment on above: Performed By: #### L 100.0100, L500.2500, [id number] #### [facility] [address] [place], [address] CO2 [Moles/Vol] 27.2 mmol/L Normal 21.0-32.0 [facility] Comment on above: Performed By: #### L 100.0100, L500.2500, [id number] #### [facility] [address] [place], [address] Creatinine [Mass/Vol] 0.90 mg/dL Normal 0.70-1.20 [facility] Comment on above: Performed By: #### L 100.0100, L500.2500, [id number] #### [facility] [address] [place], [address] ECRCL 104.50 ml/min Normal 50-250 [facility] Comment on above: Performed By: #### L 100.0100, L500.2500, [id number] #### [facility] [address] [place], [address] GAP 10 Normal 5-15 [facility] Comment on above: Performed By: #### L 100.0100, L500.2500, [id number] #### [facility] [address] [place], [address] GFR/1.73 sq M.predicted among non-blacks MDRD (S/P/Bld) [Vol rate/Area] 96 mL/min/{1.73_m2} Normal >60 [facility] Comment on above: Result Comment: mL/m in/1.73m2 CKD-EPI Creatinine Equation (2020) Performed By: #### L 100.0100, L500.2500, [id number] #### [facility] [address] [place], [address] Glucose [Mass/Vol] 453 mg/dL Invalid Interpretation Code 70-99 [facility] Comment on above: Result Comment: Crit ical Result(s) Called at 0505: by:?? [facility] Results read back by same. Performed By: #### L 100.0100, L500.2500, [id number] #### [facility] [address] [place], [address] Potassium [Moles/Vol] 3.9 mmol/L Normal 3.3-5.1 [facility] Comment on above: Performed By: #### L 100.0100, L500.2500, [id number] #### [facility] [address] [place], [address] Sodium [Moles/Vol] 131 mmol/L Low 133-145 [facility] Comment on above: Performed By: #### L 100.0100, L500.2500, [id number] #### [facility] [address] [place], [address] Urea nitrogen [Mass/Vol] 14 mg/dL Normal 4-19 [facility] Comment on above: Performed By: #### L 100.0100, L500.2500, [id number] #### [facility] [address] [place], [address] Basophil percentageOrdered B y: Johann Lemons on 02-16-2025 Basophils/100 WBC (Bld) 0.5 % 0-1 [facility] Basophil percentage 0.5 % 0-1 [facility] Bedside Glucoseon 02-16-2025 FINGERSTICK GLU 340 mg/dL High 74-106 [facility] Comment on above: Result Comment: TAYLOR GEMENT OF PATIENT CARE PER NURSING PROTOCOL Performed By: #### L 501.080 #### [facility] [address] [place], [address] FINGERSTICK GLU 341 mg/dL High 74-106 [facility] Comment on above: Result Comment: TAYLOR GEMENT OF PATIENT CARE PER NURSING PROTOCOL Performed By: #### L 501.080 #### [facility] [address] [place], [address] FINGERSTICK GLU 414 mg/dL High [facility]106 [facility] Comment on above: Result Comment: TAYLOR GEMENT OF PATIENT CARE PER NURSING PROTOCOL Performed By: #### L 501.080 #### [facility] [address] [place], [address] Beta hydroxybutyrate [Mass/V ol]Ordered By: Johann Lemons on 02-16-2025 Beta-hydroxybutyrate 0.1 mmol/L 0.0-0.3 [facility] Beta-Hydroxbytyrateon 2024 BETA-HYDROXYBUT 0.1 mmol/L Normal 0.0-0.3 [facility] Comment on above: Performed By: #### L 100.0100, L500.2500, [id number] #### [facility] [address] [place], [address] Beta-hydroxybutyrateOrdered By: Johann Lemons on 02-16-2025 Beta hydroxybutyrate [Mass/Vol] 0.1 mmol/L 0.0-0.3 [facility] Bilirubin Test strip Ql (U)O rdered By: Johann Lemons on 02-16-2025 Bilirubin Ql (U) Negative Negative [facility] CBC W/Diff, Automatedon 01-29 Absolute Lymph 1.39 X10 3/uL Normal 0.83-4.51 [facility] Comment on above: Performed By: #### L 100.0100, L500.2500, [id number] #### [facility] [address] [place], [address] Absolute Neut 6.4 X10 3/uL Normal 2.0-7.7 [facility] Comment on above: Performed By: #### L 100.0100, L500.2500, [id number] #### [facility] [address] [place], [address] Basophils/100 WBC (Bld) 0.5 % Normal 0-1 [facility] Comment on above: Performed By: #### L 100.0100, L500.2500, [id number] #### [facility] [address] [place], [address] Eosinophils/100 WBC (Bld) 2.4 % Normal 0-5 [facility] Comment on above: Performed By: #### L 100.0100, L500.2500, [id number] #### [facility] [address] [place], [address] Erythrocyte distribution width (RBC) [Ratio] 12.9 % Normal 11.6-14.6 [facility] Comment on above: Performed By: #### L 100.0100, L500.2500, [id number] #### [facility] [address] [place], [address] Hematocrit (Bld) [Volume fraction] 34.5 % Low 40-54 [facility] Comment on above: Performed By: #### L 100.0100, L500.2500, [id number] #### [facility] [address] [place], [address] Hemoglobin (Bld) [Mass/Vol] 12.2 g/dL Low 13.0-16.5 [facility] Comment on above: Performed By: #### L 100.0100, L500.2500, L501.6901 #### [facility] [address] [place], [address] IG% 0.500 Normal 0.0-0.9 [facility] Comment on above: Result Comment: IG% - Immature Granulocytes (promyelocytes, myelocytes and metamyelocytes) > 1% indicates that a LEFT SHIFT is Present. Performed By: #### L 100.0100, L500.2500, L501.6901 #### [facility] [address] [place], [address] Lymphocytes/100 WBC (Bld) 16.0 % Low 19-41 [facility] Comment on above: Performed By: #### L 100.0100, L500.2500, L501.6901 #### [facility] [address] [place], [address] MCH (RBC) [Entitic mass] 28.0 pg Normal 27.0-32.0 [facility] Comment on above: Performed By: #### L 100.0100, L500.2500, [id number] #### [facility] [address] [place], [address] MCHC (RBC) [Mass/Vol] 35.4 g/dL Normal 32-36 [facility] Comment on above: Performed By: #### L 100.0100, L500.2500, L501.6901 #### [facility] [address] [place], [address] MCV (RBC) [Entitic vol] 79.3 fL Low 80-94 [facility] Comment on above: Performed By: #### L 100.0100, L500.2500, L501.6901 #### [facility] [address] [place], [address] Monocytes/100 WBC (Bld) 7.1 % Normal 0-10 [facility] Comment on above: Performed By: #### L 100.0100, L500.2500, L501.6901 #### [facility] [address] [place], [address] Neutrophils/100 WBC (Bld) 73.5 % High 47-70 [facility] Comment on above: Performed By: #### L 100.0100, L500.2500, L501.6901 #### [facility] [address] [place], [address] Nucleated RBC (Bld) [#/Vol] 0 10*3/uL Normal 0-5 [facility] Comment on above: Performed By: #### L 100.0100, L500.2500, L501.6901 #### [facility] [address] [place], [address] Platelet mean volume (Bld) [Entitic vol] 8.8 fL Normal 6.2-12.0 [facility] Comment on above: Performed By: #### L 100.0100, L500.2500, L501.6901 #### [facility] [address] [place], [address] Platelets (Bld) [#/Vol] 230 10*3/uL Normal 150-450 [facility] Comment on above: Performed By: #### L 100.0100, L500.2500, L501.6901 #### [facility] [address] [place], [address] RBC (Bld) [#/Vol] 4.35 10*6/uL Low 4.6-6.2 [facility] Comment on above: Performed By: #### L 100.0100, L500.2500, L501.6901 #### [facility] [address] [place], [address] RDW SD 36.9 fl Normal 35.1-43.9 [facility] Comment on above: Performed By: #### L 100.0100, L500.2500, L501.6901 #### [facility] [address] [place], [address] WBC (Bld) [#/Vol] 8.7 10*3/uL Normal 4.4-11.0 [facility] Comment on above: Performed By: #### L 100.0100, L500.2500, L501.6901 #### [facility] [address] [place], [address] CO2 (BldV) [Moles/Vol]Ordere d By: Johann Lemons on 02-16-2025 CO2 [Moles/Vol] 34 mmol/L High 23-33 [facility] Venous blood total carbon dioxide measurement 34 mmol/L High 23-33 [facility] CO2 (BldV) [Partial pressure ]Ordered By: Johann Lemons on 02-16-2025 Venous blood partial pressure of carbon dioxide measurement 54.5 mmHg High 41-51 [facility] Calcium [Mass/Vol]Ordered By : Johann Lemons on 02-16-2025 Serum or plasma calcium measurement (mass/volume) 9.2 mg/dL 7.6-11.0 [facility] Carbon dioxide, total [Moles /volume] in Central venous bloodOrdered By: Johann Lemons on 02-16-2025 CO2 [Moles/Vol] 27.2 mmol/L 21.0-32.0 [facility] Carbon dioxide, total [Moles/volume] in Central venous blood 27.2 mmol/L 21.0-32.0 [facility] Chest PA and Lateralon 02-16 Chest PA and Lateral [facility] Imaging Services [address] [place] [address] Chest PA and Lateral MR#: [id number] Acct: [id number] Name: JERALD YODER Rep #: [id number] : 1960 M 64 From: Tacho Alcaraz MD PCP: Care Physician,No Primary Status: REG ER Study: Chest PA and Lateral Date of Exam: 02/16/25 Exam# [id number] Ordering Dr: Johann Lemons DO PROCEDURE: CHEST PA AND LATERAL 02/16/2025 REASON FOR EXAM: COUGH TECHNIQUE: Frontal and lateral views of the chest. Lateral and 2 frontal views to include the entire chest, 3 total images COMPARISON: 03/08/2024 FINDINGS: Small linear band at the right lower lung consistent with scar again seen. The lungs otherwise appear clear. No pleural effusion. Pulmonary vascularity appears within limits. The cardiac and mediastinal contours appear within limits. The visualized osseous structures appear within limits. RAD/Chest PA and Lateral IMPRESSION: No evidence of acute disease. Reading Location: [id number] CC: Johann Lemons DO; No Primary Care Physician Project Structural Engineer: Signed Normal [facility] Chloride assayOrdered By: Julia Lemons on 02-16-2025 Chloride [Moles/Vol] 94 mmol/L Low 98-108 [facility] Chloride assay 94 mmol/L Low 98-108 [facility] Clarity (U)Ordered By: Roland Lemons on 02-16-2025 Urine clarity Turbid Clear [facility] Color (U)Ordered By: Johann Lemons on 02-16-2025 Urine color determination Yellow Yellow [facility] Creatinine [Mass/Vol]Ordered By: Johann Lemons on 02-16-2025 Serum creatinine measurement (mass/volume) 0.90 mg/dL 0.70-1.20 [facility] Emergency Department Summary on 02-16-2025 Emergency Department Summary [facility] Medical Records Department [address] [place] [address] Emergency Department Summary 02/16/25 MR#: [id number] Acct: [id number] Name: JERALD YODER Rep #: [id number] : 1960 64 From: Johann Lemons DO PCP: Care Physician,No Primary Status:DEP ER Location: ED HPI History of Present Illness Chief Complaint: General Illness Informant: patient Narrative Narrative: Patient is a 64-year-old male with past medical history of hypertension hypothyroidism hyperlipidemia and insulin-dependent diabetes. He states that over the past 2 to 3 days he has had increased congestion and cough. He reports with this he just feels weak. He states that he is concerned he is developing infection secondary to his symptoms and therefore comes in for evaluation [facility] Medical History (Updated 02/16/25 @ 07:[address] 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 Esophageal candidiasis Current use of insulin Back pain due to injury Restless legs Injury of head and neck COPD (chronic obstructive pulmonary disease) High cholesterol History of stress test Depression Chronic pain Non-smoker Sleep apnea Diabetes Hyperlipidemia Hypertension Myocardial infarct Home Medications ???Medication ???Instructions ???Recorded ???Last Taken ???Type metformin 500 mg tablet,extended 500 mg PO BID diabetes 05/02/19 History release 24 hr glipizide 5 mg tablet 5 mg PO BID diabetes 03/19/22 05/07/22 History insulin glargine 100 unit/mL (3 10 unit subcut BID diabetes 03/18/22 History mL) subcutaneous pen (Lantus Solostar U-100 Insulin) hydrocortisone 1 % topical cream 1 applic topical TID PRN skin 08/01 05/22 Unknown Rx irritation #28.4 grams ibuprofen 600 mg tablet 600 mg PO Q8H PRN PRN pain #20 Unknown Rx TABLETS insulin glargine 100 unit/mL 1 unit subcut QPM 09/29/23 Unknown History subcutaneous solution (Lantus U-100 Insulin) levothyroxine 100 mcg tablet 100 mcg PO DAILY 09/29/23 Unknown History cyclobenzaprine 10 mg tablet 10 mg PO TID PRN Muscle Spasm #15 08/10/24 Unknown Rx TABLETS aspirin 81 mg tablet,delayed 81 mg PO DAILY 02/16/25 Unknown Hi story release (Adult Aspirin Regimen) doxycycline hyclate 100 mg capsule 100 mg PO BID 7 days #14 caps Unknown Rx Allergy/AdvReac Type Severity Reaction Status Date / Time diphenhydramine HCl (From Allergy Rash Verified 02/16/25 04:01 Benadryl) Penicillins Allergy Rash Verified 02/16/25 04:01 venom-honey bee (bee venom Allergy Swelling Verified 02/16/25 04:01 (honey bee)) Family History no significant family his Surgical History (Updated 02/16/25 @ 04:02 by Betty Avendaño) H/O hernia repair Hx of left knee surgery Hx of inguinal herniorrhaphy History of coronary artery stent placement Social History household members: none Smoking Status: Never smoker substance use type: does not use ROS ROS ED Constitutional Constitutional ED: Denies chills or fever(s) Eyes Eyes: Denies change in vision ENT ENT ED: Reports rhinorrhea; Denies sore throat Cardiovascular Cardiovascular: Denies chest pain Respiratory/Chest Respiratory/Chest: Reports cough; Denies dyspnea Gastrointestinal Gastrointestinal: Denies abdominal pain, diarrhea, nausea or vomiting Genitourinary Genitourinary ED: Denies dysuria Musculoskeletal Musculoskeletal: Denies myalgias Integumentary Denies rash Neurologic Neurologic: Reports weakness; Denies headache(s) Hematologic/Lymphatic Hematologic/Lymphatic: Denies easy bleeding or easy bruising EXAM Physical Exam Const Vital Signs: 02/16/25 04:01 02/16/25 04:01 02/16/25 06:01 Temperature 98.6 F Temperature Source Oral Pulse Rate 66 60 Respiratory Rate 19 H 17 Respiratory Effort Normal Respiratory Pattern Normal Blood Pressure 129/80 H 109/66 Blood Pressure Mean 96 80 Pulse Ox 98 98 Oxygen Delivery Method Room Air 02/16/25 07:41 Temperature 98 F Temperature Source Pulse Rate 77 Respiratory Rate 19 H Respiratory Effort Respiratory Pattern Blood Pressure 107/98 H Blood Pressure Mean 101 Pulse Ox 99 Oxygen Delivery Method Positive well nourished and well developed General Appearance ED: well developed HEENT Reports dry mucous membranes HEENT Narrative: No tongue or lip swelling no oral lesions no airway edema or compromise There is mild cobblestoning in the posterior pharynx consistent with sinus drainage; no secondary findings to suggest infection Mucous membranes are mildly dry and tacky Mouth ED: Yes dry mucous membranes Mouth: dry mucous membranes (more content not included)... Normal [facility] Eosinophil percentageOrdered By: Johann sharp 02-16-2025 Eosinophils/100 WBC (Bld) 2.4 % 0-5 [facility] Eosinophil percentage 2.4 % 0-5 [facility] Erythrocyte distribution wid th (RBC) [Ratio]Ordered By: Johann Lemons on 02-16-2025 Erythrocyte distribution width ratio 12.9 % 11.6-14.6 [facility] Erythrocyte distribution width standard deviation 36.9 fl 35.1-43.9 [facility] Erythrocyte distribution wid th ratioOrdered By: Johann Lemons on 02-16-2025 Erythrocyte distribution width (RBC) [Ratio] 12.9 % 11.6-14.6 [facility] Erythrocyte distribution wid th standard deviationOrdered By: Johann Lemons on 02-16-2025 Erythrocyte distribution width (RBC) [Ratio] 36.9 fl 35.1-43.9 [facility] Estimation of creatinine edinson aranceOrdered By: Johann Lemons on 02-16-2025 Estimation of creatinine clearance 104.50 ml/min 50-250 [facility] GFR/1.73 sq M.predicted mari g non-blacks MDRD (S/P/Bld) [Vol rate/Area]Ordered By: Johann Lemons on 02-16-2025 Glomerular filtration rate (GFR) estimation/1.73 sq m using serum, plasma, or whole b 96 >60 [facility] Glomerular filtration rate ( GFR) estimation/1.73 sq m using serum, plasma, or whole bOrdered By: Johann Lemons on 02-16-2025 GFR/1.73 sq M.predicted among non-blacks MDRD (S/P/Bld) [Vol rate/Area] 96 mL/min/{1.73_m2} >60 [facility] Comment on above: mL/min/1.73m2 CKD-EP I Creatinine Equation (2020) Glucose Ql (U)Ordered By: Julia Lemons on 02-16-2025 Urine glucose detection 1000 mg/dl High Normal [facility] Glucose [Mass/Vol]Ordered By : Johann Lemons on 02-16-2025 Serum glucose measurement (mass/volume) 453 mg/dL High 70-99 [facility] Glucose measurement at bedsi deOrdered By: Johann Lemons on 02-16-2025 Glucose [Mass/Vol] 340 mg/dL High 74-106 [facility] Comment on above: MANAGEMENT OF PATIEN T CARE PER NURSING PROTOCOL Glucose measurement at bedside 341 mg/dL High 74-106 [facility] Hematocrit Auto (Bld) [Volum e fraction]Ordered By: Johann Lemons on 02-16-2025 Hematocrit (Bld) [Volume fraction] 34.5 % Low 40-54 [facility] Automated blood hematocrit (percentage) 34.5 % Low 40-54 [facility] Hemoglobin measurementOrdere d By: Johann Lemons on 02-16-2025 Hemoglobin (Bld) [Mass/Vol] 12.2 g/dL Low 13.0-16.5 [facility] Hemoglobin measurement 12.2 g/dL Low 13.0-16.5 [facility] Immature granulocytes/100 WB C Auto (Bld)Ordered By: Johann Lemons on 02-16-2025 Immature granulocytes/100 WBC (Bld) 0.500 % 0.0-0.9 [facility] Comment on above: IG% - Immature Granu locytes (promyelocytes, myelocytes and metamyelocytes) > 1% indicates that a LEFT SHIFT is Present. Automated immature granulocyte percentage 0.500 % 0.0-0.9 [facility] Ketones Test strip Ql (U)Ord ered By: Johann Lemons on 02-16-2025 Ketones Ql (U) Negative Negative [facility] Leukocyte esterase Test stri p Ql (U)Ordered By: Johann Lemons on 02-16-2025 Urine leukocyte esterase detection by dipstick 500 /ul High Negative [facility] Lymphocytes Auto (Unsp spec) [#/Vol]Ordered By: Johann Lemons on 02-16-2025 Absolute lymphocyte count 1.39 X10^3/uL 0.83-4.51 [facility] Lymphocytes/100 WBC Auto (Un sp spec)Ordered By: Johann Lemons on 02-16-2025 Automated lymphocyte count as percentage of total leukocytes 16.0 % Low 19-41 [facility] MCV (RBC) [Entitic vol]Order ed By: Johann Lemons on 02-16-2025 MCV (mean corpuscular volume) determination 79.3 fL Low 80-94 [facility] MCV (mean corpuscular volume ) determinationOrdered By: Johann Lemons on 02-16-2025 MCV (RBC) [Entitic vol] 79.3 fL Low 80-94 [facility] Mean corpuscular hemoglobin (MCH) determinationOrdered By: Johann Lemons on 02-16-2025 MCH (RBC) [Entitic mass] 28.0 pg 27.0-32.0 [facility] Mean corpuscular hemoglobin (MCH) determination 28.0 pg 27.0-32.0 [facility] Mean corpuscular hemoglobin concentration (MCHC) determinationOrdered By: Johann Lemons on 02-16-2025 MCHC (RBC) [Mass/Vol] 35.4 g/dL 32-36 [facility] Mean corpuscular hemoglobin concentration (MCHC) determination 35.4 g/dL -36 [facility] Mean platelet volume determi nationOrdered By: Johann Lemons on 02-16-2025 Platelet mean volume (Bld) [Entitic vol] 8.8 fL 6.2-12.0 [facility] Mean platelet volume determination 8.8 fl 6.2-12.0 [facility] Microscopic analysis of urin e for red blood cells (RBC)Ordered By: Johann Lemons on 02-16-2025 Microscopic analysis of urine for red blood cells (RBC) 0 SEEN /hpf 0-5 [facility] Microscopic analysis of urine for red blood cells (RBC) 0 SEEN /hpf [facility] Monocyte percentageOrdered B y: Johann Lemons on 02-16-2025 Monocytes/100 WBC (Bld) 7.1 % 0-10 [facility] Monocyte percentage 7.1 % 0-10 [facility] Mucus LM Ql (Urine sed)Order ed By: Johann Lemons on 02-16-2025 Mucus Ql (Urine sed) 0 SEEN /hpf [facility] Neutrophil percentageOrdered By: Johann Lemons on 02-16-2025 Neutrophils/100 WBC (Bld) 73.5 % High 47-70 [facility] Neutrophil percentage 73.5 % High 47-70 [facility] Nitrite Test strip Ql (U)Ord ered By: Johann Lemons on 02-16-2025 Nitrite Ql (U) Positive High Negative [facility] Urine nitrite test by dipstick Positive High Negative [facility] No Panel InformationOrdered By: Johann Lemons on 02-16-2025 Blood Gas Sample Site Not entered [facility] Blood Gas Specimen Type GRACY [facility] Oxygen Delivery Device Not entered [facility] GRACY [facility] Not entered [facility] Nucleated red blood cell per centageOrdered By: Johann Lemons on 02-16-2025 Nucleated RBC/100 WBC (Bld) [Ratio] 0 % 0-5 [facility] Nucleated red blood cell percentage 0 % 0-5 [facility] Oxygen (BldV) [Partial press ure]Ordered By: Johann Lemons on 02-16-2025 Venous blood partial pressure of oxygen measurement 46 mmHg High 25-40 [facility] Platelet countOrdered By: Julia Lemons on 02-16-2025 Platelets (Bld) [#/Vol] 230 10*3/uL 150-450 [facility] Platelet count 230 K/mm3 150-450 [facility] Potassium (Unsp spec) [Mass/ Vol]Ordered By: Johann Lemons on 02-16-2025 Potassium measurement (mass/volume) 3.9 mmol/L 3.3-5.1 [facility] Potassium measurement (mass/ volume)Ordered By: Johann Lemons on 02-16-2025 Potassium (Unsp spec) [Mass/Vol] 3.9 mmol/L 3.3-5.1 [facility] Protein Test strip Ql (U)Ord ered By: Johann Lemons on 02-16-2025 Protein Ql (U) 100 mg/dl High Negative [facility] Urine protein assay by test strip, semi-quantitative 100 mg/dl High Negative [facility] RBC Auto (Bld) [#/Vol]Ordere d By: Johann Lemons on 02-16-2025 RBC (Bld) [#/Vol] 4.35 10*6/uL Low 4.6-6.2 [facility] Automated blood erythrocyte count 4.35 M/mm3 Low 4.6-6.2 [facility] Serum creatinine measurement (mass/volume)Ordered By: Johann Lemons on 02-16-2025 Creatinine [Mass/Vol] 0.90 mg/dL 0.70-1.20 [facility] Serum glucose measurement (m ass/volume)Ordered By: Johann Lemons on 02-16-2025 Glucose [Mass/Vol] 453 mg/dL High 70-99 [facility] Comment on above: Critical Result(s) C alled at 0505: by: MARYAM OSUNA Results read back by same. Serum or plasma calcium yayo urement (mass/volume)Ordered By: Johann Lemons on 02-16-2025 Calcium [Mass/Vol] 9.2 mg/dL 7.6-11.0 [facility] Serum or plasma urea nitroge n measurement (mass/volume)Ordered By: Johann Lemons on 02-16-2025 Urea nitrogen [Mass/Vol] 14 mg/dL 02-16 [facility] Sodium levelOrdered By: Keith Lemons on 02-16-2025 Sodium [Moles/Vol] 131 mmol/L Low 133-145 [facility] Sodium level 131 mmol/L Low 133-145 [facility] Specific gravity (U) [Rel de nsity]Ordered By: Johann Lemons on 02-16-2025 Urine specific gravity measurement 1.010 1.002-1.030 [facility] Squamous epithelial cells de tection in urine sediment by light microscopyOrdered By: Johann Lemons on 02-16-2025 Epithelial cells.squamous LM Ql (Urine sed) 0 SEEN /hpf 0-5 [facility] Urea nitrogen [Mass/Vol]Orde red By: Johann Lemons on 02-16-2025 Serum or plasma urea nitrogen measurement (mass/volume) 14 mg/dL 02-16 [facility] Urinalysis, Completeon 02-16 WBC >100 SEEN Normal 0-5 [facility] Comment on above: Order Comment: CLEAN CATCH Performed By: #### L 501.080 #### [facility] [address] [place], [address] BACTERIA 0 SEEN Normal None Seen [facility] Comment on above: Order Comment: CLEAN CATCH Performed By: #### L 501.080 #### [facility] [address] [place], [place], [address] EPI,SQUAMOUS 0 SEEN Normal 0-5 [facility] Comment on above: Order Comment: CLEAN CATCH Performed By: #### L 501.080 #### [facility] [address] [place], [address] Mucus Ql (Urine sed) 0 SEEN Normal [facility] Comment on above: Order Comment: CLEAN CATCH Performed By: #### L 501.080 #### [facility] [address] [place], [address] RBC 0 SEEN Normal 0-5 [facility] Comment on above: Order Comment: CLEAN CATCH Performed By: #### L 501.080 #### [facility] [address] [place], [place], [id number] Urine blood detectionOrdered By: Johann Lemons on 02-16-2025 Urine blood detection 150 /ul High Negative [facility] Urine clarityOrdered By: Otoniel Lemons on 02-16-2025 Clarity (U) Turbid Clear [facility] Urine color determinationOrd ered By: Johann Lemons on 02-16-2025 Color (U) Yellow Yellow [facility] Urine cultureOrdered By: Otoniel Lemons on 02-16-2025 Bacteria identified Cx Nom (U) Staphylococcus aureus Abnormal [facility] Urine glucose detectionOrder ed By: Johann Lemons on 02-16-2025 Glucose Ql (U) 1000 mg/dl High Normal [facility] Urine leukocyte esterase det ection by dipstickOrdered By: Johann Lemons on 02-16-2025 Leukocyte esterase Test strip Ql (U) 500 /ul High Negative [facility] Urine pHOrdered By: Johann borjas on 02-16-2025 pH (U) 6.0 [pH] 5.0 - 8.0 [facility] Urine sediment bacteria coun t by microscopy (number/high power field)Ordered By: Johann Lemons on 02-16-2025 Bacteria LM.HPF (Urine sed) [#/Area] 0 /[HPF] None Seen [facility] Urine specific gravity measu rementOrdered By: Johann Lemons on 02-16-2025 Specific gravity (U) [Rel density] 1.010 1.002-1.030 [facility] Urine total bilirubin detect ion by test stripOrdered By: Johann Lemons on 02-16-2025 Urine total bilirubin detection by test strip Negative Negative [facility] Urine urobilinogen measureme ntOrdered By: Johann Lemons on 02-16-2025 Urobilinogen Ql (U) Normal mg/dl Normal [facility] Urobilinogen Ql (U)Ordered B y: Johann Lemons on 02-16-2025 Urine urobilinogen measurement Normal mg/dl Normal [facility] Venous Blood Gason Blood Gas Type GRACY Normal [facility] Comment on above: Performed By: #### L 501.080 #### [facility] [address] [place], [address] CO2 [Moles/Vol] 34 mmol/L High 23-33 [facility] Comment on above: Performed By: #### L 501.080 #### [facility] [address] [place], [address] HCO3 (Bld) [Moles/Vol] 33 mmol/L High 22-26 [facility] Comment on above: Performed By: #### L 501.080 #### [facility] [address] [place], [address] O2 Delivery Dev Not entered Normal [facility] Comment on above: Performed By: #### L 501.080 #### [facility] [address] [place], [address] SITE Not entered [facility] Comment on above: Performed By: #### L 501.080 #### [facility] [address] [place], [address] VBG BE 8 mmol/L High -1.0-3.5 [facility] Comment on above: Performed By: #### L 501.080 #### [facility] [address] [place], [place], [address] VBG pCO2 54.5 mmHg High 41-51 [facility] Comment on above: Performed By: #### L 501.080 #### [facility] [address] [place], [address] VBG pH 7.39 Normal 7.32-7.42 [facility] Comment on above: Performed By: #### L [id number] #### [facility] [address] [place], [address] VBG PO2 46 mmHg High 25-40 [facility] Comment on above: Performed By: #### [id number] #### [facility] [address] [place], [address] VBG SO2 80 High 50-70 [facility] Comment on above: Performed By: #### L [id number] #### [facility] [address] [place], [address] Venous blood base excess sarina surementOrdered By: Johann Lemons on 02-16-2025 Base excess Calc (BldV) [Moles/Vol] 8 mmol/L High -1.0-3.5 [facility] Venous blood bicarbonate sarina surementOrdered By: Johann Lemons on 02-16-2025 HCO3 (Bld) [Moles/Vol] 33 mmol/L High 22-26 [facility] Venous blood bicarbonate measurement 33 mmol/L High 22-26 [facility] Venous blood oxygen saturati on measurementOrdered By: Johann Lemons on 02-16-2025 Oxygen saturation in Blood 80 % High 50-70 [facility] Venous blood oxygen saturation measurement 80 % High 50-70 [facility] Venous blood pH measurementO rdered By: Johann Lemons on 02-16-2025 pH (BldV) 7.39 [pH] 7.32-7.42 [facility] Venous blood partial pressur e of carbon dioxide measurementOrdered By: Johann Lemons on 02-16-2025 CO2 (BldV) [Partial pressure] 54.5 mm[Hg] High 41-51 [facility] Venous blood partial pressur e of oxygen measurementOrdered By: Johann Lemons on 02-16-2025 Oxygen (BldV) [Partial pressure] 46 mm[Hg] High 25-40 [facility] White blood cell (WBC) count Ordered By: Johann Lemons on 02-16-2025 WBC (Bld) [#/Vol] 8.7 10*3/uL 4.4-11.0 [facility] White blood cell (WBC) count 8.7 K/mm3 4.4-11.0 [facility] White blood cell countOrdere d By: Johann Lemons on 02-16-2025 White blood cell count >100 SEEN /hpf 0-5 [facility] White blood cell count >100 SEEN /hpf 0-5 [facility] pH (BldV)Ordered By: Johann Lemons on 02-16-2025 Venous blood pH measurement 7.39 7.32-7.42 [facility] pH (U)Ordered By: Wilmer on 02-16-2025 Urine pH 6.0 5.0 - 8.0 [facility] Urine Cultureon 12-29-2024 [facility] Staphylococcus aureu s [place] Count >100,000 Staphylococcus aureus: REACTION cefOXitin Susc Islt Doxycycline Islt NASRIN <=0.5 S Clindamycin.induced Susc Islt NEG Gentamicin Islt NASRIN <=0.5 S Linezolid Islt NASRIN 2 S Moxifloxacin Islt NASRIN <=0.25 S Nitrofurantoin Islt NASRIN <=16 S Oxacillin Susc Islt 0.5 S Tetracycline Islt NASRIN <=1 S TMP SMX Islt NASRIN <=10 S Vancomycin Islt NASRIN <=0.5 S Normal [facility] Comment on above: Performed By: #### M [id number] ####[facility] [id number] [place], [address] Bacteria LM.HPF (Urine sed) [#/Area]Ordered By: ED PROVIDER on 12-27-2024 Urine sediment bacteria count by microscopy (number/high power field) 3+ /hpf None Seen [facility] Bilirubin Test strip Ql (U)O rdered By: ED PROVIDER on 12-27-2024 Bilirubin Ql (U) Negative Negative [facility] Clarity (U)Ordered By: ED HI OVIDER on 12-27-2024 Urine clarity Turbid Clear [facility] Color (U)Ordered By: ED PROV IDER on 12-27-2024 Urine color determination Yellow Yellow [facility] Emergency Department Summary on 12-27-2024 Emergency Department Summary [facility] Medical Records Department [address] [place] [address] Emergency Department Summary 12/27/24 MR#: [id number] Acct: [id number] Name: JERALD YODER Rep #: [id number] : 1960 64 From: Panchito Yun PCP: Care Physician,No Primary Status:REG ER Location: ED HPI History of Present Illness Chief Complaint: Complaint Informant: patient Narrative Narrative: Present burning with urination since noon yesterday. No fevers back pain abdominal pain vomiting diarrhea. History of UTIs. Penicillin allergy causing rash. 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 Esophageal candidiasis Current use of insulin Back pain due to injury Restless legs Injury of head and neck COPD (chronic obstructive pulmonary disease) High cholesterol History of stress test Depression Chronic pain Non-smoker Sleep apnea Diabetes Hyperlipidemia Hypertension Myocardial infarct Home Medications ???Medication ???Instructions ???Recorded ???Last Taken ???Type metformin 500 mg tablet,extended 500 mg PO BID diabetes 05/02/19 History release 24 hr glipizide 5 mg tablet 5 mg PO BID diabetes 03/19/22 05/07/22 History insulin glargine 100 unit/mL (3 10 unit subcut BID diabetes 03/18/22 History mL) subcutaneous pen (Lantus Solostar U-100 Insulin) ondansetron 4 mg disintegrating 4 mg PO Q8H PRN nausea and 2 Unknown Rx tablet vomiting #10 tabs dicyclomine 20 mg tablet 20 mg PO TID PRN abdominal 2 Unknown Rx cramping #20 tabs diphenoxylate-atropine 2.5 1 tab PO 4X/DAY PRN PRN diarrhea 5 10/30/22 Unknown Rx mg-0.025 mg tablet (Lomotil) days #20 tabs hydrocortisone 1 % topical cream 1 applic topical TID PRN skin 08/01 05/22 Unknown Rx irritation #28.4 grams ibuprofen 600 mg tablet 600 mg PO Q8H PRN PRN pain #20 Unknown Rx TABLETS insulin glargine 100 unit/mL 1 unit subcut QPM 09/29/23 Unknown History subcutaneous solution (Lantus U-100 Insulin) levothyroxine 100 mcg tablet 100 mcg PO DAILY 09/29/23 Unknown History magnesium citrate (Citrate of 300 ml PO DAILY PRN constipation 0 12/08/23 Unknown Rx Magnesia oral) #296 mL meclizine 25 mg tablet 25 mg PO TID #30 tabs 12/08/23 Unk nown Rx cyclobenzaprine 10 mg tablet 10 mg PO TID PRN Muscle Spasm #15 08/10/24 Unknown Rx TABLETS polyethylene glycol 3350 17 17 g PO DAILY PRN constipation Unknown History gram/dose oral powder (Miralax) dicyclomine 20 mg tablet 20 mg PO TID #20 tabs 11/27/24 Unk nown Rx ondansetron 4 mg disintegrating 4 mg PO Q6H PRN nausea and 5 Unknown Rx tablet vomiting #20 tabs cefdinir 300 mg capsule 300 mg PO Q12H #14 caps 12/27/24 U nknown Rx phenazopyridine 200 mg tablet 200 mg PO TID #10 tabs 12/27/24 Un known Rx (Pyridium) Allergy/AdvReac Type Severity Reaction Status Date / Time diphenhydramine HCl (From Allergy Rash Verified 12/26/24 23:51 Benadryl) Penicillins Allergy Rash Verified 12/26/24 23:51 venom-honey bee (bee venom Allergy Swelling Verified 12/26/24 23:51 (honey bee)) Family History no significant family his Surgical History Hx of left knee surgery Hx of inguinal herniorrhaphy History of coronary artery stent placement Social History household members: none Smoking Status: Never smoker substance use type: does not use ROS ROS ED Constitutional Constitutional ED: Denies chills, fever(s) or sweats ENT ENT ED: Denies sore throat Cardiovascular Cardiovascular: Denies chest pain, leg edema, palpitations or racing heartbeat Respiratory/Chest Respiratory/Chest: Denies cough, dyspnea or dyspnea on exertion Gastrointestinal Gastrointestinal: Denies abdominal pain, diarrhea, nausea or vomiting Genitourinary Genitourinary ED: Reports dysuria; Denies hematuria or urinary frequency Musculoskeletal Musculoskeletal: Denies back pain, extremity pain or neck pain Integumentary Denies rash or wounds Neurologic Neurologic: Denies headache(s), paresthesias or weakness EXAM Physical Exam Const Vital Signs: 12/26/24 23:51 Temperature 97.9 F Temperature Source Temporal Pulse Rate 87 Respiratory Rate 18 Blood Pressure 111/78 Blood Pressure Mean 89 Pulse Ox 98 Oxygen Delivery Method Room Air Positive well nourished and well developed General Appearance ED: well developed and NAD HEENT Reports moist mucous membranes normocephalic and atraumatic Eyes General Eye ED: Yes normal appearance of both eyes Neck f (more content not included)... Normal [facility] Glucose Ql (U)Ordered By: ED PROVIDER on 12-27-2024 Urine glucose detection 1000 mg/dl High Normal [facility] Ketones Test strip Ql (U)Ord ered By: ED PROVIDER on 12-27-2024 Ketones Ql (U) Negative Negative [facility] Leukocyte esterase Test stri p Ql (U)Ordered By: ED PROVIDER on 12-27-2024 Urine leukocyte esterase detection by dipstick 500 /ul High Negative [facility] Microscopic analysis of urin e for red blood cells (RBC)Ordered By: ED PROVIDER on 12-27-2024 Microscopic analysis of urine for red blood cells (RBC) 25-50 SEEN /hpf 0-5 [facility] Microscopic analysis of urine for red blood cells (RBC) 25-50 SEEN /hpf 0-5 [facility] Mucus LM Ql (Urine sed)Order ed By: ED PROVIDER on 12-27-2024 Mucus Ql (Urine sed) 0 SEEN /hpf [facility] Nitrite Test strip Ql (U)Ord ered By: ED PROVIDER on 12-27-2024 Nitrite Ql (U) Positive High Negative [facility] Urine nitrite test by dipstick Positive High Negative [facility] Protein Test strip Ql (U)Ord ered By: ED PROVIDER on 12-27-2024 Protein Ql (U) 500 mg/dl High Negative [facility] Urine protein assay by test strip, semi-quantitative 500 mg/dl High Negative [facility] Specific gravity (U) [Rel de nsity]Ordered By: ED PROVIDER on 12-27-2024 Urine specific gravity measurement 1.015 1.002-1.030 [facility] Squamous epithelial cells de tection in urine sediment by light microscopyOrdered By: ED PROVIDER on 12-27-2024 Epithelial cells.squamous LM Ql (Urine sed) 0 SEEN /hpf 0-5 [facility] Squamous epithelial cells detection in urine sediment by light microscopy 0 SEEN /hpf [facility] Urinalysis, Completeon 12-27 BACTERIA 3+ /hpf Normal None Seen [facility] Comment on above: Order Comment: CLEAN CATCH Performed By: #### L [id number] #### [facility] [address] [place], [address] RBC 25-50 SEEN Normal [address] [place] [address] Comment on above: Order Comment: CLEAN CATCH Performed By: #### L [id number] #### [facility] [address] [place], [address] WBC >100 SEEN Normal 0-5 [facility] Comment on above: Order Comment: CLEAN CATCH Result Comment: Micr oscopic field is filled. Other elements may be obscured. Performed By: #### L [id number] #### [facility] [address] [place], [address] EPI,SQUAMOUS 0 SEEN Normal [address] [place] [address] Comment on above: Order Comment: CLEAN CATCH Performed By: #### L [id number] #### [facility] [address] [place], [address] Mucus Ql (Urine sed) 0 SEEN Normal [facility] Comment on above: Order Comment: CLEAN CATCH Performed By: #### L [id number] #### [facility] [place], [address] Urine blood detectionOrdered By: ED PROVIDER on 12-27-2024 Urine blood detection 250 /ul High Negative [facility] Urine clarityOrdered By: ED PROVIDER on 12-27-2024 Clarity (U) Turbid Clear [facility] Urine color determinationOrd ered By: ED PROVIDER on 12-27-2024 Color (U) Yellow Yellow [facility] Urine glucose detectionOrder ed By: ED PROVIDER on 12-27-2024 Glucose Ql (U) 1000 mg/dl High Normal [facility] Urine leukocyte esterase det ection by dipstickOrdered By: ED PROVIDER on 12-27-2024 Leukocyte esterase Test strip Ql (U) 500 /ul High Negative [facility] Urine pHOrdered By: ED PROVI CRISTINA on 12-27-2024 pH (U) 6.0 [pH] 5.0 - 8.0 [facility] Urine sediment bacteria coun t by microscopy (number/high power field)Ordered By: ED PROVIDER on 12-27-2024 Bacteria LM.HPF (Urine sed) [#/Area] 3 /[HPF] None Seen [facility] Urine specific gravity measu rementOrdered By: ED PROVIDER on 12-27-2024 Specific gravity (U) [Rel density] 1.015 1.002-1.030 [facility] Urine total bilirubin detect ion by test stripOrdered By: ED PROVIDER on 12-27-2024 Urine total bilirubin detection by test strip Negative Negative [facility] Urine urobilinogen measureme ntOrdered By: ED PROVIDER on 12-27-2024 Urobilinogen Ql (U) Normal mg/dl Normal [facility] Urobilinogen Ql (U)Ordered B y: ED PROVIDER on 12-27-2024 Urine urobilinogen measurement Normal mg/dl Normal [facility] White blood cell countOrdere d By: ED PROVIDER on 12-27-2024 White blood cell count >100 SEEN /hpf 0-5 [facility] Comment on above: Microscopic field is filled. Other elements may be obscured. White blood cell count >100 SEEN /hpf 0-5 [facility] pH (U)Ordered By: ED PROVIDE R on 12-27-2024 Urine pH 6.0 5.0 - 8.0 [facility] Urine cultureOrdered By: Harley Castillo on 12-26-2024 Bacteria identified Cx Nom (U) Staphylococcus aureus Abnormal [facility] Urine culture Staphylococcus aureus Abnormal [facility] ALP [Catalytic activity/Vol] Ordered By: Avni Cash on 12-20-2024 Serum or plasma alkaline phosphatase measurement 117 U/L 45-117 [facility] ALT [Catalytic activity/Vol] Ordered By: Avni Cash on 12-20-2024 Serum or plasma alanine aminotransferase (ALT) measurement 16 U/L 16-61 [facility] Abdomen/Pelvis W IV Cont ONL Yon 12-20-2024 Abdomen/Pelvis W IV Cont ONLY [facility] Imaging Services [address] [place], [place] [address] Abdomen/Pelvis W IV Cont ONLY MR#: [id number] Acct: [id number] Name: JERALD YODER Rep #: [id number] : 1960 M 64 From: Beck Quigley MD PCP: Care Physician,No Primary Status: REG ER Study: Abdomen/Pelvis W IV Cont ONLY Date of Exam: Exam# [id number] Ordering Dr: Avni Cash MD PROCEDURE: ABDOMEN/PELVIS W IV CONT ONLY REASON FOR EXAM: Abdominal pain. TECHNIQUE: Abdomen and pelvis CT with intravenous contrast. IV CONTRAST: 91 mL of Isovue-300. COMPARISON: 03/08/2024 CT. FINDINGS: Lung bases: Mild dependent atelectasis. Liver: Unremarkable. Gallbladder: Unremarkable. Spleen: Unremarkable. Pancreas: Unremarkable. Adrenals: Unremarkable. Kidneys: Unremarkable. Bladder: Unremarkable. Reproductive Organs: Unremarkable. Bowel: Sigmoid colon wall thickening which may be due to underdistention or colitis. Appendix: Normal. Lymph nodes: No suspicious lymph node enlargement. Vasculature: Major vascular structures are unremarkable. Peritoneum / Retroperitoneum: No ascites. No free air. Bones: Degenerative changes of the spine most pronounced at L4-5 and L5-S1. CT/Abdomen/Pelvis W IV Cont ONLY IMPRESSION: Sigmoid colon wall thickening which may be due to underdistention or colitis. One or more dose reduction techniques were used (e.g., Automated exposure control, adjustment of the mA and/or kV according to patient size, use of iterative reconstruction technique). Reading Location: [id number] CC: Dr. Avni Cash MD; No Primary Care Physician Project Structural Engineer: Signed Normal [facility] Absolute lymphocyte countOrd ered By: Avni Cash on 12-20-2024 Lymphocytes Auto (Unsp spec) [#/Vol] 1.10 10*3/uL 0.83-4.51 [facility] Absolute neutrophil countOrd ered By: Avni Cash on 12-20-2024 Neutrophils (Bld) [#/Vol] 6.6 10*3/uL 2.0-7.7 [facility] Absolute neutrophil count 6.6 X10^3/uL 2.0-7.7 [facility] Albumin [Mass/Vol]Ordered By : Avni Cahs on 12-20-2024 Serum or plasma albumin measurement (mass/volume) 3.4 g/dL 3.2-5.0 [facility] Albumin to globulin ratioOrd ered By: Avni Cash on 12-20-2024 Albumin/Globulin [Mass ratio] 0.8 {ratio} Low 0.9-2.4 [facility] Albumin to globulin ratio 0.8 RATIO Low 0.9-2.4 [facility] Automated lymphocyte count a s percentage of total leukocytesOrdered By: Avni Cash on 12-20-2024 Lymphocytes/100 WBC Auto (Unsp spec) 13.2 % Low 19-41 [facility] Basophil percentageOrdered B y: Avni Cash on 12-20-2024 Basophils/100 WBC (Bld) 0.5 % 0-1 [facility] Basophil percentage 0.5 % 0-1 [facility] Bilirubin Test strip Ql (U)O rdered By: Avni Cash on 12-20-2024 Bilirubin Ql (U) Negative Negative [facility] Bilirubin, totalOrdered By: Avni Cash on 12-20-2024 Bilirubin [Mass/Vol] 0.70 mg/dL 0.20-1.00 [facility] Comment on above: For patients on eltr ombopag therapy, use of Dimension [place] TBIL is not recommended. Bilirubin, total 0.70 mg/dL 0.20-1.00 [facility] Blood urea nitrogen (BUN)/cr eatinine ratioOrdered By: Avni Cash on 12-20-2024 Urea nitrogen/Creatinine [Mass ratio] 11.2 mg/mg 08-19 [facility] Blood urea nitrogen (BUN)/creatinine ratio 11.2 RATIO 08-19 [facility] CBC W/Diff, Automatedon 12-02 Absolute Lymph 1.10 X10 3/uL Normal 0.83-4.51 [facility] Comment on above: Performed By: #### L [id number] #### [facility] [address] [place], [address] Absolute Neut 6.6 X10 3/uL Normal 2.0-7.7 [facility] Comment on above: Performed By: #### [id number] #### [facility] [address] [place], [address] Basophils/100 WBC (Bld) 0.5 % Normal 0-1 [facility] Comment on above: Performed By: #### [id number] #### [facility] [address] [place], [address] Eosinophils/100 WBC (Bld) 1.7 % Normal 0-5 [facility] Comment on above: Performed By: #### L [id number] #### [facility] [address] [place], [address] Erythrocyte distribution width (RBC) [Ratio] 13.9 % Normal 11.6-14.6 [facility] Comment on above: Performed By: #### L [id number] #### [facility] [address] [place], [address] Hematocrit (Bld) [Volume fraction] 40.7 % Normal 40-54 [facility] Comment on above: Performed By: #### L [id number] #### [facility] [address] [place], [address] Hemoglobin (Bld) [Mass/Vol] 14.4 g/dL Normal 13.0-16.5 [facility] Comment on above: Performed By: #### L [id number] #### [facility] [address] [place], [address] IG% 0.800 Normal 0.0-0.9 [facility] Comment on above: Result Comment: IG% - Immature Granulocytes (promyelocytes, myelocytes and metamyelocytes) > 1% indicates that a LEFT SHIFT is Present. Performed By: #### L [id number] #### [facility] [address] [place], [address] Lymphocytes/100 WBC (Bld) 13.2 % Low 19-41 [facility] Comment on above: Performed By: #### L [id number] #### [facility] [address] [place], [address] MCH (RBC) [Entitic mass] 29.1 pg Normal 27.0-32.0 [facility] Comment on above: Performed By: #### L [id number] #### [facility] [address] [place], [address] MCHC (RBC) [Mass/Vol] 35.4 g/dL Normal 32-36 [facility] Comment on above: Performed By: #### L [id number] #### [facility] [address] [place], [address] MCV (RBC) [Entitic vol] 82.2 fL Normal 80-94 [facility] Comment on above: Performed By: #### L [id number] #### [facility] [address] [place], [address] Monocytes/100 WBC (Bld) 5.3 % Normal 0-10 [facility] Comment on above: Performed By: #### [id number] #### [facility] [address] [place], [address] Neutrophils/100 WBC (Bld) 78.5 % High 47-70 [facility] Comment on above: Performed By: #### L [id number] #### [facility] [address] [place], [address] Nucleated RBC (Bld) [#/Vol] 0 10*3/uL Normal 0-5 [facility] Comment on above: Performed By: #### L [id number] #### [facility] [address] [place], [address] Platelet mean volume (Bld) [Entitic vol] 9.3 fL Normal 6.2-12.0 [facility] Comment on above: Performed By: #### L [id number] #### [facility] [address] [place], [address] Platelets (Bld) [#/Vol] 281 10*3/uL Normal 150-450 [facility] Comment on above: Performed By: #### [id number] #### [facility] [address] [place], [address] RBC (Bld) [#/Vol] 4.95 10*6/uL Normal 4.6-6.2 [facility] Comment on above: Performed By: #### [id number] #### [facility] [address] [place], [address] RDW SD 41.1 fl Normal 35.1-43.9 [facility] Comment on above: Performed By: #### L [id number] #### [facility] [address] [place], [address] WBC (Bld) [#/Vol] 8.4 10*3/uL Normal 4.4-11.0 [facility] Comment on above: Performed By: #### L [id number] #### [facility] [address] [place], [address] Calcium [Mass/Vol]Ordered By : Avni Cash on 12-20-2024 Serum or plasma calcium measurement (mass/volume) 9.7 mg/dL 8.5-10.1 [facility] Carbon dioxide measurementOr dered By: Avni Cash on 12-20-2024 CO2 [Moles/Vol] 31.0 mmol/L 21.0-32.0 [facility] Carbon dioxide measurement 31.0 mmol/L 21.0-32.0 [facility] Chloride measurementOrdered By: Avni Cash on 12-20-2024 Chloride [Moles/Vol] 99 mmol/L 98-107 [facility] Chloride measurement 99 mmol/L 98-107 [facility] Clarity (U)Ordered By: Avni Cash on 12-20-2024 Urine clarity Clear Clear [facility] Color (U)Ordered By: Avni hauser on 12-20-2024 Urine color determination Yellow Yellow [facility] Comprehensive Metabolic Prof ilon 12-20-2024 Albumin [Mass/Vol] 3.4 g/dL Normal 3.2-5.0 [facility] Comment on above: Performed By: #### L 501.080 #### [facility] [address] [place], [address] Albumin/Globulin [Mass ratio] 0.8 {ratio} Low 0.9-2.4 [facility] Comment on above: Performed By: #### [id number] #### [facility] [address] [place], [address] ALK P 117 U/L Normal 45-117 [facility] Comment on above: Performed By: #### L [id number] #### [facility] [address] [place], [address] ALT [Catalytic activity/Vol] 16 U/L Normal 16-61 [facility] Comment on above: Performed By: #### L [id number] #### [facility] [address] [place], [address] AST [Catalytic activity/Vol] 8 U/L Low 15-37 [facility] Comment on above: Performed By: #### L 501.080 #### [facility] [address] [place], [address] Bilirubin [Mass/Vol] 0.70 mg/dL Normal 0.20-1.00 [facility] Comment on above: Result Comment: For patients on eltrombopag therapy, use of Dimension [place] TBIL is not recommended. Performed By: #### L 501.080 #### [facility] [address] [place], [address] BUN/CRE 11.2 RATIO Normal 10-20 [facility] Comment on above: Performed By: #### L 501.080 #### [facility] [address] [place], [address] CA,Total 9.7 mg/dL Normal 8.5-10.1 [facility] Comment on above: Performed By: #### L [id number] #### [facility] [address] [place], [address] Chloride [Moles/Vol] 99 mmol/L Normal 98-107 [facility] Comment on above: Performed By: #### L [id number] #### [facility] [address] [place], [address] CO2 [Moles/Vol] 31.0 mmol/L Normal 21.0-32.0 [facility] Comment on above: Performed By: #### L 501.080 #### [facility] [address] [place], [address] Creatinine [Mass/Vol] 0.89 mg/dL Normal 0.70-1.30 [facility] Comment on above: Result Comment: The validity of the calculated GFR GFRAA in patients over 70 years has not been determined. Clinical correlation is essential. Performed By: #### L 501.080 #### [facility] [address] [place], [address] EST GFR - AA 110 mL/min Normal >60 [facility] Comment on above: Result Comment: Afri can Taiwanese GFR Calc Performed By: #### L 501.080 #### [facility] [address] [place], [address] GAP 5 Normal 5-15 [facility] Comment on above: Performed By: #### L 501.080 #### [facility] [address] [place], [address] GFR/1.73 sq M.predicted among non-blacks MDRD (S/P/Bld) [Vol rate/Area] 91 mL/min/{1.73_m2} Normal >60 [facility] Comment on above: Result Comment: Non- GFR Calc Performed By: #### L 501.080 #### [facility] [address] [place], [address] Globulin (S) [Mass/Vol] 4.1 g/dL Normal 2.2-4.2 [facility] Comment on above: Performed By: #### L 501.080 #### [facility] [address] [place], [address] Glucose [Mass/Vol] 424 mg/dL High 74-106 [facility] Comment on above: Result Comment: Gluc ose result greater than or equal to 200 mg/dL suggests DIABETES MELLITUS per A.D.A. criteria. Performed By: #### L 501.080 #### [facility] [address] [place], [address] Potassium [Moles/Vol] 4.3 mmol/L Normal 3.5-5.1 [facility] Comment on above: Performed By: #### L [id number] #### [facility] [address] [place], [address] Sodium [Moles/Vol] 135 mmol/L Low 136-145 [facility] Comment on above: Performed By: #### L [id number] #### [facility] [address] [place], [address] T PROT 7.5 g/dL Normal 6.4-8.2 [facility] Comment on above: Performed By: #### L [id number] #### [facility] [address] [place], [address] Urea nitrogen [Mass/Vol] 10 mg/dL Normal 7-18 [facility] Comment on above: Performed By: #### L 501.080 #### [facility] [address] [place], [address] Creatinine [Mass/Vol]Ordered By: Avni Cash on 12-20-2024 Serum or plasma creatinine measurement (mass/volume) 0.89 mg/dL 0.70-1.30 [facility] Emergency Department Summary on 12-20-2024 Emergency Department Summary [facility] Medical Records Department [address] [place] [address] Emergency Department Summary 12/20/24 MR#: [id number] Acct: [id number] Name: JERALD YODER Rep #: [id number] : 1960 64 From: Avni Cash MD PCP: Care Physician,No Primary Status:REG ER Location: ED HPI HPI - GI History of Present Illness Chief Complaint: Abd Pain Informant: patient Abdominal Pain/Flank Pain Onset: Today and Hours Context: Gradual Onset Timing: Continuous Quality: Aching Location: - (Periumbilical abdominal pain today since noon.) Current Severity: Mild Maximum Severity: Mild Worsened by: Nothing Relieved by: Nothing Nausea/Vomiting/Emesis GI Symptom: Negative for Nausea or Vomiting Diarrhea/Melena/Hematoc hezia GI Symptom: Positive for Diarrhea; Negative for Melena or Hematochezia Onset: Weeks (Intermittent) Stool Quality: Positive for Loose Severity: Mild Associated Symptoms Associated Symptoms: Negative for Dysuria, Frequency, Hematuria or Urgency Narrative Narrative: 64-year-old male history of COPD, diabetes hypertension. States he has abdominal pain today since about noon. Said the pain before without prior diagnosis. Denies any prior abdominal surgeries. Denies any abdominal trauma. No dysuria. States is intermittent had diarrhea for some time. It comes and goes. Denies any melena. No fever. Nothing particular makes his pain better or worse. It does not radiate to his back. No chest pain. Denies any fever or weight loss. 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 Esophageal candidiasis Current use of insulin Back pain due to injury Restless legs Injury of head and neck COPD (chronic obstructive pulmonary disease) High cholesterol History of stress test Depression Chronic pain Non-smoker Sleep apnea Diabetes Hyperlipidemia Hypertension Myocardial infarct Home Medications ???Medication ???Instructions ???Recorded ???Last Taken ???Type metformin 500 mg tablet,extended 500 mg PO BID diabetes 05/02/19 History release 24 hr glipizide 5 mg tablet 5 mg PO BID diabetes 03/19/2202/28 History insulin glargine 100 unit/mL (3 10 unit subcut BID diabetes 03/18/22 History mL) subcutaneous pen (Lantus Solostar U-100 Insulin) ondansetron 4 mg disintegrating 4 mg PO Q8H PRN nausea and 2 Unknown Rx tablet vomiting #10 tabs dicyclomine 20 mg tablet 20 mg PO TID PRN abdominal 2 Unknown Rx cramping #20 tabs diphenoxylate-atropine 2.5 1 tab PO 4X/DAY PRN PRN diarrhea 5 10/30/22 Unknown Rx mg-0.025 mg tablet (Lomotil) days #20 tabs hydrocortisone 1 % topical cream 1 applic topical TID PRN skin 08/01 05/22 Unknown Rx irritation #28.4 grams ibuprofen 600 mg tablet 600 mg PO Q8H PRN PRN pain #20 Unknown Rx TABLETS insulin glargine 100 unit/mL 1 unit subcut QPM 09/29/23 Unknown History subcutaneous solution (Lantus U-100 Insulin) levothyroxine 100 mcg tablet 100 mcg PO DAILY 09/29/23 Unknown History magnesium citrate (Citrate of 300 ml PO DAILY PRN constipation 0 12/08/23 Unknown Rx Magnesia oral) #296 mL meclizine 25 mg tablet 25 mg PO TID #30 tabs 12/08/23 Unk nown Rx cyclobenzaprine 10 mg tablet 10 mg PO TID PRN Muscle Spasm #15 08/10/24 Unknown Rx TABLETS polyethylene glycol 3350 17 17 g PO DAILY PRN constipation Unknown History gram/dose oral powder (Miralax) dicyclomine 20 mg tablet 20 mg PO TID #20 tabs 11/27/24 Unk nown Rx ondansetron 4 mg disintegrating 4 mg PO Q6H PRN nausea and 5 Unknown Rx tablet vomiting #20 tabs Allergy/AdvReac Type Severity Reaction Status Date / Time diphenhydramine HCl (From Allergy Rash Verified 12/20/24 12:27 Benadryl) Penicillins Allergy Rash Verified 12/20/24 12:27 venom-honey bee (bee venom Allergy Swelling Verified 12/20/24 12:27 (honey bee)) Surgical History Hx of left knee surgery Hx of inguinal herniorrhaphy History of coronary artery stent placement Social History household members: none Smoking Status: Never smoker substance use type: does not use ROS ROS ED ROS Narrative Abdominal pain. Diarrhea. Constitutional Constitutional ED: Denies chills or fever(s) ENT ENT ED: Denies ear pain Cardiovascular Cardiovascular: Denies chest pain Respiratory/Chest Respiratory/Chest: Denies cough or dyspnea Gastrointestinal Gastrointestinal: Reports abdominal pain and diarrhea; Denies constipation, melena, nausea or vomiting Genitourinary G (more content not included)... Normal [facility] Eosinophil percentageOrdered By: Avni Cash on 12-20-2024 Eosinophils/100 WBC (Bld) 1.7 % 0-5 [facility] Eosinophil percentage 1.7 % 0-5 [facility] Erythrocyte distribution wid th (RBC) [Ratio]Ordered By: Avni Cash on 12-20-2024 Erythrocyte distribution width ratio 13.9 % 11.6-14.6 [facility] Erythrocyte distribution width standard deviation 41.1 fl 35.1-43.9 [facility] Erythrocyte distribution wid th ratioOrdered By: Avni Cash on 12-20-2024 Erythrocyte distribution width (RBC) [Ratio] 13.9 % 11.6-14.6 [facility] Erythrocyte distribution wid th standard deviationOrdered By: Avni Cash on 12-20-2024 Erythrocyte distribution width (RBC) [Ratio] 41.1 fl 35.1-43.9 [facility] Estimated glomerular filtrat ion rate (GFR) AmericanOrdered By: Avni Cash on 12-20-2024 Estimated glomerular filtration rate (GFR) 110 mL/min >60 [facility] Glomerular filtration rate ( GFR) estimationOrdered By: Avni Cash on 12-20-2024 GFR/1.73 sq M.predicted among non-blacks MDRD (S/P/Bld) [Vol rate/Area] 91 mL/min/{1.73_m2} >60 [facility] Comment on above: Non- GFR Calc Glomerular filtration rate (GFR) estimation 91 mL/min >60 [facility] Glucose Ql (U)Ordered By: Vitor Cash on 12-20-2024 Urine glucose detection 1000 mg/dl High Normal [facility] Glucose measurementOrdered B y: Avni Cash on 12-20-2024 Glucose [Mass/Vol] 424 mg/dL High 74-106 [facility] Comment on above: Glucose result great er than or equal to 200 mg/dLsuggests DIABETES MELLITUS per A.D.A. criteria. Glucose measurement 424 mg/dL High 74-106 [facility] Hematocrit Auto (Bld) [Volum e fraction]Ordered By: Avni Cash on 12-20-2024 Hematocrit (Bld) [Volume fraction] 40.7 % 40-54 [facility] Automated blood hematocrit (percentage) 40.7 % 40-54 [facility] Hemoglobin measurementOrdere d By: Avni Cash on 12-20-2024 Hemoglobin (Bld) [Mass/Vol] 14.4 g/dL 13.0-16.5 [facility] Hemoglobin measurement 14.4 g/dL 13.0-16.5 [facility] [place] [place] Hyaline casts LM.LPF (Urine sed) [#/Area]Ordered By: Avni Cash on 12-20-2024 Hyaline casts (Urine sed) [#/Area] 0 /[LPF] 0-5 [facility] Urine sediment hyaline cast count by microscopy (number/low power field) 0-5 SEEN /lpf 0-5 [facility] Immature granulocytes/100 WB C Auto (Bld)Ordered By: Avni Cash on 12-20-2024 Immature granulocytes/100 WBC (Bld) 0.800 % 0.0-0.9 [facility] Comment on above: IG% - Immature Granu locytes (promyelocytes, myelocytes and metamyelocytes) > 1% indicates that a LEFT SHIFT is Present. Automated immature granulocyte percentage 0.800 % 0.0-0.9 [facility] Ketones Test strip Ql (U)Ord ered By: Avni Cash on 12-20-2024 Ketones Ql (U) Negative Negative [facility] - Chemistry and C hemistry - challengeOrdered By: Avni Cash on 12-20-2024 AST [Catalytic activity/Vol] 8 U/L Low 15-37 [facility] Lipaseon 12-20-2024 Lipase [Catalytic activity/Vol] 13 U/L Low 73-393 [facility] Comment on above: Performed By: #### L 501.080 #### [facility] [address] [place] [address], [id number] Lipase measurementOrdered By : Avni Cash on 12-20-2024 Lipase [Catalytic activity/Vol] 13 U/L Low 73-393 [facility] Lipase measurement 13 U/L Low 73-393 [facility] Lymphocytes Auto (Unsp spec) [#/Vol]Ordered By: Avni Cash on 12-20-2024 Absolute lymphocyte count 1.10 X10^3/uL 0.83-4.51 [facility] Lymphocytes/100 WBC Auto (Un sp spec)Ordered By: Avni Cash on 12-20-2024 Automated lymphocyte count as percentage of total leukocytes 13.2 % Low 19-41 [facility] MCV (RBC) [Entitic vol]Order ed By: Avni Cash on 12-20-2024 MCV (mean corpuscular volume) determination 82.2 fL 80-94 [facility] MCV (mean corpuscular volume ) determinationOrdered By: Avni Cash on 12-20-2024 MCV (RBC) [Entitic vol] 82.2 fL 80-94 [facility] Mean corpuscular hemoglobin (MCH) determinationOrdered By: Avni Cash on 12-20-2024 MCH (RBC) [Entitic mass] 29.1 pg 27.0-32.0 [facility] Mean corpuscular hemoglobin (MCH) determination 29.1 pg 27.0-32.0 [facility] Mean corpuscular hemoglobin concentration (MCHC) determinationOrdered By: Avni Cash on 12-20-2024 MCHC (RBC) [Mass/Vol] 35.4 g/dL 32-36 [facility] Mean corpuscular hemoglobin concentration (MCHC) determination 35.4 g/dL 32-36 [facility] Mean platelet volume determi nationOrdered By: Avni Cash on 12-20-2024 Platelet mean volume (Bld) [Entitic vol] 9.3 fL 6.2-12.0 [facility] Mean platelet volume determination 9.3 fl 6.2-12.0 [facility] Microscopic analysis of urin e for red blood cells (RBC)Ordered By: Avni Cash on 12-20-2024 Microscopic analysis of urine for red blood cells (RBC) 0-5 SEEN /hpf 0-5 [facility] Monocyte percentageOrdered B y: Avni Cash on 12-20-2024 Monocytes/100 WBC (Bld) 5.3 % 0-10 [facility] Monocyte percentage 5.3 % 0-10 [facility] Mucus LM Ql (Urine sed)Order ed By: Avni Cash on 12-20-2024 Mucus Ql (Urine sed) 0 SEEN /hpf [facility] Neutrophil percentageOrdered By: Avni Cash on 12-20-2024 Neutrophils/100 WBC (Bld) 78.5 % High 47-70 [facility] Neutrophil percentage 78.5 % High 47-70 [facility] Nitrite Test strip Ql (U)Ord ered By: Avni Cash on 12-20-2024 Nitrite Ql (U) Negative Negative [facility] No Panel InformationOrdered By: Avni Cash on 12-20-2024 8 U/L Low 15-37 [facility] Nucleated red blood cell per centageOrdered By: Avni Cash on 12-20-2024 Nucleated RBC/100 WBC (Bld) [Ratio] 0 % 0-5 [facility] Nucleated red blood cell percentage 0 % 0-5 [facility] Platelet countOrdered By: Vitor Cash on 12-20-2024 Platelets (Bld) [#/Vol] 281 10*3/uL 150-450 [facility] Platelet count 281 K/mm3 150-450 [facility] Potassium measurementOrdered By: Avni Cash on 12-20-2024 Potassium [Moles/Vol] 4.3 mmol/L 3.5-5.1 [facility] Potassium measurement 4.3 mmol/L 3.5-5.1 [facility] Protein Test strip Ql (U)Ord ered By: Avni Cash on 12-20-2024 Protein Ql (U) Negative Negative [facility] RBC Auto (Bld) [#/Vol]Ordere d By: Avni Cash on 12-20-2024 RBC (Bld) [#/Vol] 4.95 10*6/uL 4.6-6.2 [facility] Automated blood erythrocyte count 4.95 M/mm3 4.6-6.2 [facility] Serum anion gap measurementO rdered By: Avni Cash on 12-20-2024 Anion gap [Moles/Vol] 5 mmol/L 5-15 [facility] Serum anion gap measurement 5 5-15 [facility] Serum globulin measurementOr dered By: Avni Cash on 12-20-2024 Globulin (S) [Mass/Vol] 4.1 g/dL 2.2-4.2 [facility] Serum globulin measurement 4.1 g/dL 2.2-4.2 [facility] Serum or plasma alanine wagoner otransferase (ALT) measurementOrdered By: Avni Cash on 12-20-2024 ALT [Catalytic activity/Vol] 16 U/L 16-61 [facility] Serum or plasma albumin yayo urement (mass/volume)Ordered By: Avni Cash on 12-20-2024 Albumin [Mass/Vol] 3.4 g/dL 3.2-5.0 [facility] Serum or plasma alkaline andrzej sphatase measurementOrdered By: Avni Cash on 12-20-2024 ALP [Catalytic activity/Vol] 117 U/L 45-117 [facility] Serum or plasma calcium yayo urement (mass/volume)Ordered By: Avni Cash on 12-20-2024 Calcium [Mass/Vol] 9.7 mg/dL 8.5-10.1 [facility] Serum or plasma creatinine m easurement (mass/volume)Ordered By: Avni Cash on 12-20-2024 Creatinine [Mass/Vol] 0.89 mg/dL 0.70-1.30 [facility] Comment on above: The validity of the calculated GFR & GFRAA in patients over 70 years has not been determined. Clinical correlation is essential. Serum or plasma urea nitroge n measurement (mass/volume)Ordered By: Avni Cash on 12-20-2024 Urea nitrogen [Mass/Vol] 10 mg/dL 05-17 [facility] Sodium levelOrdered By: Avni Cash on 12-20-2024 Sodium [Moles/Vol] 135 mmol/L Low 136-145 [facility] Sodium level 135 mmol/L Low 136-145 [facility] Specific gravity (U) [Rel de nsity]Ordered By: Avni Cash on 12-20-2024 Urine specific gravity measurement 1.010 1.002-1.030 [facility] Squamous epithelial cells de tection in urine sediment by light microscopyOrdered By: Avni Cash on 12-20-2024 Epithelial cells.squamous LM Ql (Urine sed) 0 SEEN /hpf 0-5 [facility] Squamous epithelial cells detection in urine sediment by light microscopy 0 SEEN /hpf [facility] Total proteinOrdered By: Geovani Cash on 12-20-2024 Protein [Mass/Vol] 7.5 g/dL 6.4-8.2 [facility] Total protein 7.5 g/dL 6.4-8.2 [facility] Urea nitrogen [Mass/Vol]Orde red By: Avni Cash on 12-20-2024 Serum or plasma urea nitrogen measurement (mass/volume) 10 mg/dL - [facility] Urinalysis, Completeon 12-20 CAST,HYALINE 0-5 SEEN Normal 0-5 [facility] Comment on above: Order Comment: CLEAN CATCH Performed By: #### L 100.0100, L500.4050 #### [facility] [address] [place], [address] RBC 0-5 SEEN Normal 0-5 [facility] Comment on above: Order Comment: CLEAN CATCH Performed By: #### L 100.0100, [id number] #### [facility] [address] [place], [address] WBC 0-5 SEEN Normal 0-5 [facility] Comment on above: Order Comment: CLEAN CATCH Performed By: #### L 100.0100, [id number] #### [facility] [address] [place], [address] YEAST 1+ /hpf Normal None Seen [facility] Comment on above: Order Comment: CLEAN CATCH Performed By: #### L 100.0100, [id number] #### [facility] [address] [place], [address] BACTERIA 0 SEEN Normal None Seen [facility] Comment on above: Order Comment: CLEAN CATCH Performed By: #### L 100.0100, [id number] #### [facility] [address] [place], [address] EPI,SQUAMOUS 0 SEEN Normal 0-5 [facility] Comment on above: Order Comment: CLEAN CATCH Performed By: #### L 100.0100, [id number] #### [facility] [address] [place], [address] Mucus Ql (Urine sed) 0 SEEN Normal [facility] Comment on above: Order Comment: CLEAN CATCH Performed By: #### L 100.0100, [id number] #### [facility] [address] [place], [address] Urine blood detectionOrdered By: Avni Cash on 12-20-2024 Urine blood detection 10 /ul High Negative [facility] Urine clarityOrdered By: Geovani Cash on 12-20-2024 Clarity (U) Clear Clear [facility] Urine color determinationOrd ered By: Avni Cash on 12-20-2024 Color (U) Yellow Yellow [facility] Urine glucose detectionOrder ed By: Avni Cash on 12-20-2024 Glucose Ql (U) 1000 mg/dl High Normal [facility] Urine leukocyte esterase det ection by dipstickOrdered By: Avni Cash on 12-20-2024 Leukocyte esterase Test strip Ql (U) Negative Negative [facility] Urine pHOrdered By: Avni Falcon ghjean on 12-20-2024 pH (U) 5.0 [pH] 5.0 - 8.0 [facility] Urine sediment bacteria coun t by microscopy (number/high power field)Ordered By: Avni Cash on 12-20-2024 Bacteria LM.HPF (Urine sed) [#/Area] 0 /[HPF] None Seen [facility] Urine sediment yeast count b y microscopy (number/high powered field)Ordered By: Avni Cash on 12-20-2024 Yeast LM.HPF (Urine sed) [#/Area] 1 /[HPF] None Seen [facility] Urine specific gravity measu rementOrdered By: Avni Cash on 12-20-2024 Specific gravity (U) [Rel density] 1.010 1.002-1.030 [facility] Urine total bilirubin detect ion by test stripOrdered By: Avni Cash on 12-20-2024 Urine total bilirubin detection by test strip Negative Negative [facility] Urine urobilinogen measureme ntOrdered By: Avni Cash on 12-20-2024 Urobilinogen Ql (U) Normal mg/dl Normal [facility] Urobilinogen Ql (U)Ordered B y: Avni Cash on 12-20-2024 Urine urobilinogen measurement Normal mg/dl Normal [facility] White blood cell (WBC) count Ordered By: Avni Cash on 12-20-2024 WBC (Bld) [#/Vol] 8.4 10*3/uL 4.4-11.0 [facility] White blood cell (WBC) count 8.4 K/mm3 4.4-11.0 [facility] White blood cell countOrdere d By: Avni Cash on 12-20-2024 White blood cell count 0-5 SEEN /hpf 0-5 [facility] White blood cell count 0-5 SEEN /hpf 0-5 [facility] Yeast LM.HPF (Urine sed) [#/ Area]Ordered By: Avni Cash on 12-20-2024 Urine sediment yeast count by microscopy (number/high powered field) 1+ /hpf None Seen [facility] pH (U)Ordered By: Avni pena on 12-20-2024 Urine pH 5.0 5.0 - 8.0 [facility] CNOVon 12-14-2024 CNOV Office Visit ([facility] ) JERALD YODER ([id number]) 1960 M Date Time Provider [facility], we recorded the following information about you: Temperature Pulse Respiration Blood pressure 97.1 degrees 77/minute 18/minute 105/70 Weight 98.7 kg Ion Alfaro APRN.DEBIT AGENT 12/14/2024 9:40 AM Signed This note was created using [employer]. Subjective Jerald Yoder is a 64 year [...] SPRAY,SUSPENSION - CETIRIZINE 10 MG TABLET Ion Alfaro APRN.DEBIT AGENT Allergies As of Date: 12/14/2024 Noted Allergy Reaction BEE STING 06/22/2011 7 - Swelling BENEDRYL (DIPHENHYDRAMINE) 06/22/2011 7 - Swelling PENICILLINS 06/22/2011 2 - Rash Date Reviewed: 12/14/2024 Reviewed by: Ion Alfaro APRN.DEBIT AGENT - Fully Assessed Reason for Visit: Ear Problem [38] Cmt: Bilateral clogged x1 day Primary Visit Diagnosis:Eustachian tube dysfunction, bilateral [H69.93] Order(s):fluticasone (FLONASE ALLERGY RELIEF) 50 mcg/actuation nasal sprayUse 1 [place] in each nostril once daily.Disp: 9.9 mLRfl: 0 cetirizine (ZYRTEC) 10 mg tabletTake 1 tablet by mouth once daily for 14 days.Disp: 14 tabletRfl: 0 Prescriptions as of 12/14/2024 - fluticasone (FLONASE ALLERGY RELIEF) 50 mcg/actuation nasal spray Use 1 [place] in each nostril once daily. - cetirizine [...] blood sugar(s) 4 times daily. Dx: 250.02. (more content not included)... Normal [facility] ALP [Catalytic activity/Vol] Ordered By: aBrry Mathew on 12-08-2024 Serum or plasma alkaline phosphatase measurement 98 U/L 45-117 [facility] ALT [Catalytic activity/Vol] Ordered By: Barry Mathew on 12-08-2024 Serum or plasma alanine aminotransferase (ALT) measurement 16 U/L 16-61 [facility] Absolute lymphocyte countOrd ered By: Barry Mathew on 12-08-2024 Lymphocytes Auto (Unsp spec) [#/Vol] 1.25 10*3/uL 0.83-4.51 [facility] Absolute neutrophil countOrd ered By: Barry Mathew on 12-08-2024 Neutrophils (Bld) [#/Vol] 4.1 10*3/uL 2.0-7.7 [facility] Absolute neutrophil count 4.1 X10^3/uL 2.0-7.7 [facility] Albumin [Mass/Vol]Ordered By : Barry Mathew on 12-08-2024 Serum or plasma albumin measurement (mass/volume) 3.5 g/dL 3.2-5.0 [facility] Albumin to globulin ratioOrd ered By: Barry Mathew on 12-08-2024 Albumin/Globulin [Mass ratio] 0.9 {ratio} 0.9-2.4 [facility] Albumin to globulin ratio 0.9 RATIO 0.9-2.4 [facility] Automated lymphocyte count a s percentage of total leukocytesOrdered By: Barry Mathew on 12-08-2024 Lymphocytes/100 WBC Auto (Unsp spec) 20.7 % 19-41 [facility] Bacteria LM.HPF (Urine sed) [#/Area]Ordered By: Barry Mathew on 12-08-2024 Urine sediment bacteria count by microscopy (number/high power field) 1+ /hpf None Seen [facility] Basophil percentageOrdered B y: Barry Mathew on 12-08-2024 Basophils/100 WBC (Bld) 0.7 % 0-1 [facility] Basophil percentage 0.7 % 0-1 [facility] Bilirubin Test strip Ql (U)O rdered By: Barry Mathew on 12-08-2024 Bilirubin Ql (U) Negative Negative [facility] Bilirubin, totalOrdered By: Barry Mathew on 12-08-2024 Bilirubin [Mass/Vol] 0.40 mg/dL 0.20-1.00 [facility] Comment on above: For patients on eltr ombopag therapy, use of Dimension [place] TBIL is not recommended. Bilirubin, total 0.40 mg/dL 0.20-1.00 [facility] Blood urea nitrogen (BUN)/cr eatinine ratioOrdered By: Barry Mathew on 12-08-2024 Urea nitrogen/Creatinine [Mass ratio] 14.2 mg/mg 08-19 [facility] Blood urea nitrogen (BUN)/creatinine ratio 14.2 RATIO 08-19 [facility] CBC W/Diff, Automatedon Absolute Lymph 1.25 X10 3/uL Normal 0.83-4.51 [facility] Comment on above: Performed By: #### L 100.0100, L500.4050 ####[facility] [address] [place], [address] Absolute Neut 4.1 X10 3/uL Normal 2.0-7.7 [facility] Comment on above: Performed By: #### L 100.0100, L500.4050 ####[facility] [address] [place], [address] Basophils/100 WBC (Bld) 0.7 % Normal 0-1 [facility] Comment on above: Performed By: #### L 100.0100, L500.4050 ####[facility] [address] [place], [address] Eosinophils/100 WBC (Bld) 3.8 % Normal 0-5 [facility] Comment on above: Performed By: #### L 100.0100, L500.4050 ####[facility] [address] [place], [address] Erythrocyte distribution width (RBC) [Ratio] 14.0 % Normal 11.6-14.6 [facility] Comment on above: Performed By: #### L 100.0100, L500.4050 ####[facility] [address] [place], [address] Hematocrit (Bld) [Volume fraction] 38.6 % Low 40-54 [facility] Comment on above: Performed By: #### L 100.0100, L500.4050 ####[facility] [address] [place], [address] Hemoglobin (Bld) [Mass/Vol] 13.6 g/dL Normal 13.0-16.5 [facility] Comment on above: Performed By: #### L 100.0100, L500.4050 ####[facility] [address] [place], [address] IG% 0.500 Normal 0.0-0.9 [facility] Comment on above: Result Comment: IG% - Immature Granulocytes (promyelocytes, myelocytes and metamyelocytes) > 1% indicates that a LEFT SHIFT is Present. Performed By: #### L 100.0100, L500.4050 ####[facility] [address] [place], [address] Lymphocytes/100 WBC (Bld) 20.7 % Normal 19-41 [facility] Comment on above: Performed By: #### L 100.0100, L500.4050 ####[facility] [address] [place], [address] MCH (RBC) [Entitic mass] 28.5 pg Normal 27.0-32.0 [facility] Comment on above: Performed By: #### L 100.0100, L500.4050 ####[facility] [address] [place], [address] MCHC (RBC) [Mass/Vol] 35.2 g/dL Normal 32-36 [facility] Comment on above: Performed By: #### L 100.0100, L500.4050 ####[facility] [address] [place], [address] MCV (RBC) [Entitic vol] 80.9 fL Normal 80-94 [facility] Comment on above: Performed By: #### L 100.0100, L500.4050 ####[facility] [address] [place], [address] Monocytes/100 WBC (Bld) 7.1 % Normal 0-10 [facility] Comment on above: Performed By: #### L 100.0100, L500.4050 ####[facility] [address] [place], [address] Neutrophils/100 WBC (Bld) 67.2 % Normal 47-70 [facility] Comment on above: Performed By: #### L 100.0100, L500.4050 ####[facility] [address] [place], [address] Nucleated RBC (Bld) [#/Vol] 0 10*3/uL Normal 0-5 [facility] Comment on above: Performed By: #### L 100.0100, L500.4050 ####[facility] [address] [place], [address] Platelet mean volume (Bld) [Entitic vol] 8.9 fL Normal 6.2-12.0 [facility] Comment on above: Performed By: #### L 100.0100, L500.4050 ####[facility] [address] [place], [address] Platelets (Bld) [#/Vol] 226 10*3/uL Normal 150-450 [facility] Comment on above: Performed By: #### L 100.0100, L500.4050 ####[facility] [address] [place], [address] RBC (Bld) [#/Vol] 4.77 10*6/uL Normal 4.6-6.2 [facility] Comment on above: Performed By: #### L 100.0100, L500.4050 ####[facility] [address] [place], [address] RDW SD 40.5 fl Normal 35.1-43.9 [facility] Comment on above: Performed By: #### L 100.0100, L500.4050 ####[facility] [address] [place], [address] WBC (Bld) [#/Vol] 6.0 10*3/uL Normal 4.4-11.0 [facility] Comment on above: Performed By: #### L 100.0100, L500.4050 ####[facility] [address] [place], [address] Calcium [Mass/Vol]Ordered By : Barry Mathew on 12-08-2024 Serum or plasma calcium measurement (mass/volume) 9.0 mg/dL 8.5-10.1 [facility] Carbon dioxide measurementOr dered By: Barry Mathew on 12-08-2024 CO2 [Moles/Vol] 30.0 mmol/L 21.0-32.0 [facility] Carbon dioxide measurement 30.0 mmol/L 21.0-32.0 [facility] Chloride measurementOrdered By: Barry Mathew on 12-08-2024 Chloride [Moles/Vol] 100 mmol/L 98-107 [facility] Chloride measurement 100 mmol/L 98-107 [facility] Clarity (U)Ordered By: Barry Mathew on 12-08-2024 Urine clarity Clear Clear [facility] Color (U)Ordered By: Barry gordon on 12-08-2024 Urine color determination Yellow Yellow [facility] Comprehensive Metabolic Prof ilon 12-08-2024 Albumin [Mass/Vol] 3.5 g/dL Normal 3.2-5.0 [facility] Comment on above: Performed By: #### L 100.0100, L500.4050 ####[facility] [address] [place], [address] Albumin/Globulin [Mass ratio] 0.9 {ratio} Normal 0.9-2.4 [facility] Comment on above: Performed By: #### L 100.0100, L500.4050 ####[facility] [address] [place], [address] ALK P 98 U/L Normal 45-117 [facility] Comment on above: Performed By: #### L 100.0100, L500.4050 ####[facility] [address] [place], [address] ALT [Catalytic activity/Vol] 16 U/L Normal 16-61 [facility] Comment on above: Performed By: #### L 100.0100, L500.4050 ####[facility] [address] [place], [address] AST [Catalytic activity/Vol] 10 U/L Low 15-37 [facility] Comment on above: Performed By: #### L 100.0100, L500.4050 ####[facility] [address] [place], [address] Bilirubin [Mass/Vol] 0.40 mg/dL Normal 0.20-1.00 [facility] Comment on above: Result Comment: For patients on eltrombopag therapy, use of Dimension [place] TBIL is not recommended. Performed By: #### L 100.0100, L500.4050 ####[facility] [address] [place], [address] BUN/CRE 14.2 RATIO Normal 10-20 [facility] Comment on above: Performed By: #### L 100.0100, L500.4050 ####[facility] [address] [place], [address] CA,Total 9.0 mg/dL Normal 8.5-10.1 [facility] Comment on above: Performed By: #### L 100.0100, L500.4050 ####[facility] [address] [place], [address] Chloride [Moles/Vol] 100 mmol/L Normal 98-107 [facility] Comment on above: Performed By: #### L 100.0100, L500.4050 ####[facility] [address] [place], [address] CO2 [Moles/Vol] 30.0 mmol/L Normal 21.0-32.0 [facility] Comment on above: Performed By: #### L 100.0100, L500.4050 ####[facility] [address] [place], [address] Creatinine [Mass/Vol] 0.85 mg/dL Normal 0.70-1.30 [facility] Comment on above: Result Comment: The validity of the calculated GFR GFRAA in patients over 70 years has not been determined. Clinical correlation is essential. Performed By: #### L 100.0100, L500.4050 ####[facility] [address] [place], [address] ECRCL 110.65 ml/min Normal [facility] Comment on above: Performed By: #### L 100.0100, L500.4050 ####[facility] [address] [place], [address] EST GFR - AA 117 mL/min Normal >60 [facility] Comment on above: Result Comment: Afri can Taiwanese GFR Calc Performed By: #### L 100.0100, L500.4050 ####[facility] [address] [place], [address] GAP 6 Normal 5-15 [facility] Comment on above: Performed By: #### L 100.0100, L500.4050 ####[facility] [address] [place], [address] GFR/1.73 sq M.predicted among non-blacks MDRD (S/P/Bld) [Vol rate/Area] 97 mL/min/{1.73_m2} Normal >60 [facility] Comment on above: Result Comment: Non- GFR Calc Performed By: #### L 100.0100, L500.4050 ####[facility] [address] [place], [address] Globulin (S) [Mass/Vol] 3.8 g/dL Normal 2.2-4.2 [facility] Comment on above: Performed By: #### L 100.0100, L500.4050 ####[facility] [address] [place], [address] Glucose [Mass/Vol] 395 mg/dL High 74-106 [facility] Comment on above: Result Comment: Gluc ose result greater than or equal to 200 mg/dL suggests DIABETES MELLITUS per A.D.A. criteria. Performed By: #### L 100.0100, L500.4050 ####[facility] [address] [place], [address] Potassium [Moles/Vol] 3.9 mmol/L Normal 3.5-5.1 [facility] Comment on above: Performed By: #### L 100.0100, L500.4050 ####[facility] [address] [place], [address] Sodium [Moles/Vol] 136 mmol/L Normal 136-145 [facility] Comment on above: Performed By: #### L 100.0100, L500.4050 ####[facility] [address] [place], [address] T PROT 7.3 g/dL Normal 6.4-8.2 [facility] Comment on above: Performed By: #### L 100.0100, L500.4050 ####[facility] [address] [place], [address] Urea nitrogen [Mass/Vol] 12 mg/dL Normal 7-18 [facility] Comment on above: Performed By: #### L 100.0100, L500.4050 ####[facility] [address] [place], [address] Creatinine [Mass/Vol]Ordered By: Barry Mathew on 12-08-2024 Serum or plasma creatinine measurement (mass/volume) 0.85 mg/dL 0.70-1.30 [facility] Emergency Department Summary on 12-08-2024 Emergency Department Summary [facility] Medical Records Department [address] [place] [address] Emergency Department Summary 12/08/24 MR#: [id number] Acct: [id number] Name: JERALD YODER Rep #: [id number] : 1960 64 From: Barry Mathew MD PCP: Care Physician,No Primary Status:DEP ER Location: ED HPI History of Present Illness Chief Complaint: General Illness Narrative Narrative: 64-year-old male past medical history of diabetes presents with multiple somatic complaints that has had for the last 2 days. He states he has dry mouth and urinary frequency with occasional cough. He states he had subjective fever as well. No nausea or vomiting. He is really complaining about his dry mouth and urinary frequency, stating that he urinates at least 3-4 times an hour. He checked his blood sugar today and it was elevated at 245. No other exacerbating or alleviating factors. 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 Esophageal candidiasis Current use of insulin Back pain due to injury Restless legs Injury of head and neck COPD (chronic obstructive pulmonary disease) High cholesterol History of stress test Depression Chronic pain Non-smoker Sleep apnea Diabetes Hyperlipidemia Hypertension Myocardial infarct Home Medications ???Medication ???Instructions ???Recorded ???Last Taken ???Type metformin 500 mg tablet,extended 500 mg PO BID diabetes 05/02/19 History release 24 hr glipizide 5 mg tablet 5 mg PO BID diabetes 03/19/22 05/07/22 History insulin glargine 100 unit/mL (3 10 unit subcut BID diabetes 03/18/22 History mL) subcutaneous pen (Lantus Solostar U-100 Insulin) ondansetron 4 mg disintegrating 4 mg PO Q8H PRN nausea and 2 Unknown Rx tablet vomiting #10 tabs dicyclomine 20 mg tablet 20 mg PO TID PRN abdominal 2 Unknown Rx cramping #20 tabs diphenoxylate-atropine 2.5 1 tab PO 4X/DAY PRN PRN diarrhea 5 10/30/22 Unknown Rx mg-0.025 mg tablet (Lomotil) days #20 tabs hydrocortisone 1 % topical cream 1 applic topical TID PRN skin 08/01 05/22 Unknown Rx irritation #28.4 grams ibuprofen 600 mg tablet 600 mg PO Q8H PRN PRN pain #20 Unknown Rx TABLETS insulin glargine 100 unit/mL 1 unit subcut QPM 09/29/23 Unknown History subcutaneous solution (Lantus U-100 Insulin) levothyroxine 100 mcg tablet 100 mcg PO DAILY 09/29/23 Unknown History magnesium citrate (Citrate of 300 ml PO DAILY PRN constipation 0 12/08/23 Unknown Rx Magnesia oral) #296 mL meclizine 25 mg tablet 25 mg PO TID #30 tabs 12/08/23 Unk nown Rx cyclobenzaprine 10 mg tablet 10 mg PO TID PRN Muscle Spasm #15 08/10/24 Unknown Rx TABLETS polyethylene glycol 3350 17 17 g PO DAILY PRN constipation Unknown History gram/dose oral powder (Miralax) dicyclomine 20 mg tablet 20 mg PO TID #20 tabs 11/27/24 Unk nown Rx ondansetron 4 mg disintegrating 4 mg PO Q6H PRN nausea and 5 Unknown Rx tablet vomiting #20 tabs Allergy/AdvReac Type Severity Reaction Status Date / Time diphenhydramine HCl (From Allergy Rash Verified 12/08/24 12:22 Benadryl) Penicillins Allergy Rash Verified 12/08/24 12:22 venom-honey bee (bee venom Allergy Swelling Verified 12/08/24 12:22 (honey bee)) Family History no significant family his Surgical History Hx of left knee surgery Hx of inguinal herniorrhaphy History of coronary artery stent placement Social History household members: none Smoking Status: Never smoker substance use type: does not use ROS ROS ED ROS Narrative Review of systems positive for dry mouth, urinary frequency, cough. No fevers or chills. No nausea or vomiting. No chest pain or shortness of breath. Reports elevated blood sugar of 245 this morning. EXAM Physical Exam Narrative Exam Narrative: Afebrile. Vital signs noted. HEENT: Normocephalic. Atraumatic. PERRL, EOMI. Neck soft and supple. No point tenderness or step off. Tacky mucous membranes. Cardiovascular: Regular rate and rhythm. No murmurs, rubs, or gallops appreciated. Respiratory: No tachypnea. Lungs clear to auscultation bilaterally. Gastrointestinal: Abdomen soft, nontender, with normoactive bowel sounds. No rebound or guarding. Neurological: Awake. Alert. Nonfocal, nonlateralizing. Skin: No rash. Normal color. No pallor. Musculoskeletal: No pedal edema. Full range of motion extremities. Const Vital Signs: 12/08/24 12:21 12/08/24 12:22 12/08/24 14:52 Temperature 97.4 F L 97.4 F L 97.4 F L Temperature Source Oral Oral Pulse Rate 81 80 86 Respir (more content not included)... Normal [facility] Eosinophil percentageOrdered By: Barry Mathew on 12-08-2024 Eosinophils/100 WBC (Bld) 3.8 % 0-5 [facility] Eosinophil percentage 3.8 % 0-5 [facility] Epithelial cells.squamous LM Ql (Urine sed)Ordered By: Barry Mathew on 12-08-2024 Squamous epithelial cells detection in urine sediment by light microscopy 0-5 SEEN /hpf 0-5 [facility] Erythrocyte distribution wid th (RBC) [Ratio]Ordered By: Barry Mathew on 12-08-2024 Erythrocyte distribution width ratio 14.0 % 11.6-14.6 [facility] Erythrocyte distribution width standard deviation 40.5 fl 35.1-43.9 [facility] Erythrocyte distribution wid th ratioOrdered By: Barry Mathew on 12-08-2024 Erythrocyte distribution width (RBC) [Ratio] 14.0 % 11.6-14.6 [facility] Erythrocyte distribution wid th standard deviationOrdered By: Barry Mathew on 12-08-2024 Erythrocyte distribution width (RBC) [Ratio] 40.5 fl 35.1-43.9 [facility] Estimated glomerular filtrat ion rate (GFR) AmericanOrdered By: Barry Mathew on 12-08-2024 Estimated glomerular filtration rate (GFR) 117 mL/min >60 [facility] Estimation of creatinine edinson aranceOrdered By: Barry Mathew on 12-08-2024 Estimation of creatinine clearance 110.65 ml/min [facility] Glomerular filtration rate ( GFR) estimationOrdered By: Barry Mathew on 12-08-2024 GFR/1.73 sq M.predicted among non-blacks MDRD (S/P/Bld) [Vol rate/Area] 97 mL/min/{1.73_m2} >60 [facility] Comment on above: Non- GFR Calc Glomerular filtration rate (GFR) estimation 97 mL/min >60 [facility] Glucose Ql (U)Ordered By: Franco Mathew on 12-08-2024 Urine glucose detection 1000 mg/dl High Normal [facility] Glucose measurementOrdered B y: Barry Mathew on 12-08-2024 Glucose [Mass/Vol] 395 mg/dL High 74-106 [facility] Comment on above: Glucose result great er than or equal to 200 mg/dLsuggests DIABETES MELLITUS per A.D.A. criteria. Glucose measurement 395 mg/dL High 74-106 [facility] Hematocrit Auto (Bld) [Volum e fraction]Ordered By: Barry Mathwe on 12-08-2024 Hematocrit (Bld) [Volume fraction] 38.6 % Low 40-54 [facility] Automated blood hematocrit (percentage) 38.6 % Low 40-54 [facility] Hemoglobin measurementOrdere d By: Barry Mathew on 12-08-2024 Hemoglobin (Bld) [Mass/Vol] 13.6 g/dL 13.0-16.5 [facility] Hemoglobin measurement 13.6 g/dL 13.0-16.5 [facility] Immature granulocytes/100 WB C Auto (Bld)Ordered By: Barry Mathew on 12-08-2024 Immature granulocytes/100 WBC (Bld) 0.500 % 0.0-0.9 [facility] Comment on above: IG% - Immature Granu locytes (promyelocytes, myelocytes and metamyelocytes) > 1% indicates that a LEFT SHIFT is Present. Automated immature granulocyte percentage 0.500 % 0.0-0.9 [facility] Influenza virus A and B and SARS-CoV-2 (COVID-19) and Respiratory syncytial virus RNAOrdered By: Barry Mathew on 12-08-2024 SARS-CoV-2 (COVID-19) RNA IOANA+probe Ql (Unsp spec) [facility] Ketones Test strip Ql (U)Ord ered By: Barry Mathew on 12-08-2024 Ketones Ql (U) Negative Negative [facility] Laboratory - Chemistry and C hemistry - challengeOrdered By: Barry Mathew on 12-08-2024 AST [Catalytic activity/Vol] 10 U/L Low 15-37 [facility] Lymphocytes Auto (Unsp spec) [#/Vol]Ordered By: Barry Mathew on 12-08-2024 Absolute lymphocyte count 1.25 X10^3/uL 0.83-4.51 [facility] Lymphocytes/100 WBC Auto (Un sp spec)Ordered By: Barry Mathew on 12-08-2024 Automated lymphocyte count as percentage of total leukocytes 20.7 % 19-41 [facility] M100.678on 12-08-2024 M100.678 Pending SARS-CoV-2 (COVID 19) Negative INFLUENZA A Negative INFLUENZA B Negative RSV PCR Negative Normal [facility] Comment on above: Performed By: #### L 400.0001, M100.678 ####[facility] [address] [facility] [place], [place], [id number] MCV (RBC) [Entitic vol]Order ed By: Barry Mathew on 12-08-2024 MCV (mean corpuscular volume) determination 80.9 fL 80-94 [facility] MCV (mean corpuscular volume ) determinationOrdered By: Barry Mathew on 12-08-2024 MCV (RBC) [Entitic vol] 80.9 fL 80-94 [facility] Mean corpuscular hemoglobin (MCH) determinationOrdered By: Barry Mathew on 12-08-2024 MCH (RBC) [Entitic mass] 28.5 pg 27.0-32.0 [facility] Mean corpuscular hemoglobin (MCH) determination 28.5 pg 27.0-32.0 [facility] Mean corpuscular hemoglobin concentration (MCHC) determinationOrdered By: Barry Mathew on 12-08-2024 MCHC (RBC) [Mass/Vol] 35.2 g/dL 32-36 [facility] Mean corpuscular hemoglobin concentration (MCHC) determination 35.2 g/dL 32-36 [facility] Mean platelet volume determi nationOrdered By: Barry Mathew on 12-08-2024 Platelet mean volume (Bld) [Entitic vol] 8.9 fL 6.2-12.0 [facility] Mean platelet volume determination 8.9 fl 6.2-12.0 [facility] Microscopic analysis of urin e for red blood cells (RBC)Ordered By: Barry Mathew on 12-08-2024 Microscopic analysis of urine for red blood cells (RBC) 0 SEEN /hpf 0-5 [facility] Monocyte percentageOrdered B y: Barry Mathew on 12-08-2024 Monocytes/100 WBC (Bld) 7.1 % 0-10 [facility] Monocyte percentage 7.1 % 0-10 [facility] Mucus LM Ql (Urine sed)Order ed By: Barry Mathew on 12-08-2024 Mucus Ql (Urine sed) 0 SEEN /hpf [facility] Neutrophil percentageOrdered By: Barry Mathew on 12-08-2024 Neutrophils/100 WBC (Bld) 67.2 % 47-70 [facility] Neutrophil percentage 67.2 % 47-70 [facility] Nitrite Test strip Ql (U)Ord ered By: Barry Mathew on 12-08-2024 Nitrite Ql (U) Negative Negative [facility] No Panel InformationOrdered By: Barry Mathew on 12-08-2024 10 U/L Low 15-37 [facility] [facility] Nucleated red blood cell per centageOrdered By: Barry Mathew on 12-08-2024 Nucleated RBC/100 WBC (Bld) [Ratio] 0 % 0-5 [facility] Nucleated red blood cell percentage 0 % 0-5 [facility] Platelet countOrdered By: Franco Mathew on 12-08-2024 Platelets (Bld) [#/Vol] 226 10*3/uL 150-450 [facility] Platelet count 226 K/mm3 150-450 [facility] Potassium measurementOrdered By: Barry Mathew on 12-08-2024 Potassium [Moles/Vol] 3.9 mmol/L 3.5-5.1 [facility] Potassium measurement 3.9 mmol/L 3.5-5.1 [facility] Protein Test strip Ql (U)Ord ered By: Barry Mathew on 12-08-2024 Protein Ql (U) Negative Negative [facility] RBC Auto (Bld) [#/Vol]Ordere d By: Barry Mathew on 12-08-2024 RBC (Bld) [#/Vol] 4.77 10*6/uL 4.6-6.2 [facility] Automated blood erythrocyte count 4.77 M/mm3 4.6-6.2 [facility] Serum anion gap measurementO rdered By: Barry Mathew on 12-08-2024 Anion gap [Moles/Vol] 6 mmol/L 5-15 [facility] Serum anion gap measurement 6 5-15 [facility] Serum globulin measurementOr dered By: Barry Mathew on 12-08-2024 Globulin (S) [Mass/Vol] 3.8 g/dL 2.2-4.2 [facility] Serum globulin measurement 3.8 g/dL 2.2-4.2 [facility] Serum or plasma alanine wagoner otransferase (ALT) measurementOrdered By: Barry Mtahew on 12-08-2024 ALT [Catalytic activity/Vol] 16 U/L 16-61 [facility] Serum or plasma albumin yayo urement (mass/volume)Ordered By: Barry Mathew on 12-08-2024 Albumin [Mass/Vol] 3.5 g/dL 3.2-5.0 [facility] Serum or plasma alkaline andrzej sphatase measurementOrdered By: Barry Mathew on 12-08-2024 ALP [Catalytic activity/Vol] 98 U/L 45-117 [facility] Serum or plasma calcium yayo urement (mass/volume)Ordered By: Barry Mathew on 12-08-2024 Calcium [Mass/Vol] 9.0 mg/dL 8.5-10.1 [facility] Serum or plasma creatinine m easurement (mass/volume)Ordered By: Barry Mathew on 12-08-2024 Creatinine [Mass/Vol] 0.85 mg/dL 0.70-1.30 [facility] Comment on above: The validity of the calculated GFR & GFRAA in patients over 70 years has not been determined. Clinical correlation is essential. Serum or plasma urea nitroge n measurement (mass/volume)Ordered By: Barry Mathew on 12-08-2024 Urea nitrogen [Mass/Vol] 12 mg/dL 05-17 [facility] Sodium levelOrdered By: Barry Mathew on 12-08-2024 Sodium [Moles/Vol] 136 mmol/L 136-145 [facility] Sodium level 136 mmol/L 136-145 [facility] Specific gravity (U) [Rel de nsity]Ordered By: Barry Mathew on 12-08-2024 Urine specific gravity measurement 1.010 1.002-1.030 [facility] Squamous epithelial cells de tection in urine sediment by light microscopyOrdered By: Barry Mathew on 12-08-2024 Epithelial cells.squamous LM Ql (Urine sed) 0-5 SEEN /hpf 0-5 [facility] Total proteinOrdered By: Silva Mathew on 12-08-2024 Protein [Mass/Vol] 7.3 g/dL 6.4-8.2 [facility] Total protein 7.3 g/dL 6.4-8.2 [facility] Urea nitrogen [Mass/Vol]Orde red By: Barry Mathew on 12-08-2024 Serum or plasma urea nitrogen measurement (mass/volume) 12 mg/dL 05-17 [facility] Urinalysis, Completeon 12-08 BACTERIA 1+ /hpf Normal None Seen [facility] Comment on above: Order Comment: COLLE CTOR TO SPECIFY Performed By: #### L 400.0001, M100.678 ####[facility] [address] [place], [address] EPI,SQUAMOUS 0-5 SEEN Normal 0-5 [facility] Comment on above: Order Comment: COLLE CTOR TO SPECIFY Performed By: #### L 400.0001, M100.678 ####[facility] [address] [place], [address] RBC 0 SEEN Normal 0-5 [facility] Comment on above: Order Comment: NO CTOR TO SPECIFY Performed By: #### L 400.0001, M100.678 ####[facility] [address] [place], [address] Mucus Ql (Urine sed) 0 SEEN Normal [facility] Comment on above: Order Comment: NO CTOR TO SPECIFY Performed By: #### L 400.0001, M100.678 ####[facility] [address] [place], [address] WBC 0 SEEN Normal 0-5 [facility] Comment on above: Order Comment: NO CTOR TO SPECIFY Performed By: #### L 400.0001, M100.678 ####[facility] [address] [place], [address] Urine clarityOrdered By: Silva Mathew on 12-08-2024 Clarity (U) Clear Clear [facility] Urine color determinationOrd ered By: Barry Mathew on 12-08-2024 Color (U) Yellow Yellow [facility] Urine glucose detectionOrder ed By: Barry Mathew on 12-08-2024 Glucose Ql (U) 1000 mg/dl High Normal [facility] Urine leukocyte esterase det ection by dipstickOrdered By: Barry Mathew on 12-08-2024 Leukocyte esterase Test strip Ql (U) Negative Negative [facility] Urine pHOrdered By: Barry otoole on 12-08-2024 pH (U) 6.0 [pH] 5.0 - 8.0 [facility] Urine sediment bacteria coun t by microscopy (number/high power field)Ordered By: Barry Mathew on 12-08-2024 Bacteria LM.HPF (Urine sed) [#/Area] 1 /[HPF] None Seen [facility] Urine specific gravity measu rementOrdered By: Barry Mathew on 12-08-2024 Specific gravity (U) [Rel density] 1.010 1.002-1.030 [facility] Urine total bilirubin detect ion by test stripOrdered By: Barry Mathew on 12-08-2024 Urine total bilirubin detection by test strip Negative Negative [facility] Urine urobilinogen measureme ntOrdered By: Barry Mathew on 12-08-2024 Urobilinogen Ql (U) Normal mg/dl Normal [facility] Urobilinogen Ql (U)Ordered B y: Barry Mathew on 12-08-2024 Urine urobilinogen measurement Normal mg/dl Normal [facility] White blood cell (WBC) count Ordered By: Barry Mathew on 12-08-2024 WBC (Bld) [#/Vol] 6.0 10*3/uL 4.4-11.0 [facility] White blood cell (WBC) count 6.0 K/mm3 4.4-11.0 [facility] White blood cell countOrdere d By: Barry Mathew on 12-08-2024 White blood cell count 0 SEEN /hpf 0-5 [facility] White blood cell count 0 SEEN /hpf [facility] pH (U)Ordered By: Barry garcia on 12-08-2024 Urine pH 6.0 5.0 - 8.0 [facility] ALP [Catalytic activity/Vol] Ordered By: Pedro Krishnan on 11-27-2024 Serum or plasma alkaline phosphatase measurement 107 U/L 45-117 [facility] ALT [Catalytic activity/Vol] Ordered By: Pedro Krishnan on 11-27-2024 Serum or plasma alanine aminotransferase (ALT) measurement 16 U/L 16-61 [facility] Absolute lymphocyte countOrd ered By: Pedro Krishnan on 11-27-2024 Lymphocytes Auto (Unsp spec) [#/Vol] 1.51 10*3/uL 0.83-4.51 [facility] Absolute neutrophil countOrd ered By: Pedro Krishnan on 11-27-2024 Neutrophils (Bld) [#/Vol] 6.6 10*3/uL 2.0-7.7 [facility] Absolute neutrophil count 6.6 X10^3/uL 2.0-7.7 [facility] Albumin [Mass/Vol]Ordered By : Pedro Krishnan on 11-27-2024 Serum or plasma albumin measurement (mass/volume) 3.6 g/dL 3.2-5.0 [facility] Albumin to globulin ratioOrd ered By: Pedro Krishnan on 11-27-2024 Albumin/Globulin [Mass ratio] 1.0 {ratio} 0.9-2.4 [facility] Albumin to globulin ratio 1.0 RATIO 0.9-2.4 [facility] Automated lymphocyte count a s percentage of total leukocytesOrdered By: Pedro Krishnan on 11-27-2024 Lymphocytes/100 WBC Auto (Unsp spec) 16.8 % Low 19-41 [facility] Bacteria LM.HPF (Urine sed) [#/Area]Ordered By: Pedro Krishnan on 11-27-2024 Urine sediment bacteria count by microscopy (number/high power field) RARE /hpf None Seen [facility] Basophil percentageOrdered B y: Pedro Krishnan on 11-27-2024 Basophils/100 WBC (Bld) 0.7 % 0-1 [facility] Basophil percentage 0.7 % 0-1 [facility] Bilirubin Test strip Ql (U)O rdered By: Pedro Krishnan on 11-27-2024 Bilirubin Ql (U) Negative Negative [facility] Bilirubin, totalOrdered By: Pedro Krishnan on 11-27-2024 Bilirubin [Mass/Vol] 0.40 mg/dL 0.20-1.00 [facility] Comment on above: For patients on eltr ombopag therapy, use of Dimension [place] TBIL is not recommended. Bilirubin, total 0.40 mg/dL 0.20-1.00 [facility] Blood urea nitrogen (BUN)/cr eatinine ratioOrdered By: Pedro Krishnan on 11-27-2024 Urea nitrogen/Creatinine [Mass ratio] 12.7 mg/mg 10- [facility] Blood urea nitrogen (BUN)/creatinine ratio 12.7 RATIO 08-19 [facility] CBC W/Diff, Automatedon Absolute Lymph 1.51 X10 3/uL Normal 0.83-4.51 [facility] Comment on above: Performed By: #### L 501.080 #### [facility] [address] [place], [address] Absolute Neut 6.6 X10 3/uL Normal 2.0-7.7 [facility] Comment on above: Performed By: #### L 501.080 #### [facility] [address] [place], [address] Basophils/100 WBC (Bld) 0.7 % Normal 0-1 [facility] Comment on above: Performed By: #### L 501.080 #### [facility] [address] [place], [address] Eosinophils/100 WBC (Bld) 2.8 % Normal 0-5 [facility] Comment on above: Performed By: #### L 501.080 #### [facility] [address] [place], [address] Erythrocyte distribution width (RBC) [Ratio] 14.2 % Normal 11.6-14.6 [facility] Comment on above: Performed By: #### L 501.080 #### [facility] [address] [place], [address] Hematocrit (Bld) [Volume fraction] 41.1 % Normal 40-54 [facility] Comment on above: Performed By: #### L 501.080 #### [facility] [address] [place], [address] Hemoglobin (Bld) [Mass/Vol] 14.2 g/dL Normal 13.0-16.5 [facility] Comment on above: Performed By: #### L 501.080 #### [facility] [address] [place], [address] IG% 0.300 Normal 0.0-0.9 [facility] Comment on above: Result Comment: IG% - Immature Granulocytes (promyelocytes, myelocytes and metamyelocytes) > 1% indicates that a LEFT SHIFT is Present. Performed By: #### L 501.080 #### [facility] [address] [place], [address] Lymphocytes/100 WBC (Bld) 16.8 % Low 19-41 [facility] Comment on above: Performed By: #### L [id number] #### [facility] [address] [place], [address] MCH (RBC) [Entitic mass] 28.2 pg Normal 27.0-32.0 [facility] Comment on above: Performed By: #### L 501.080 #### [facility] [address] [place], [address] MCHC (RBC) [Mass/Vol] 34.5 g/dL Normal 32-36 [facility] Comment on above: Performed By: #### L 501.080 #### [facility] [address] [place], [address] MCV (RBC) [Entitic vol] 81.7 fL Normal 80-94 [facility] Comment on above: Performed By: #### L 501.080 #### [facility] [address] [place], [address] Monocytes/100 WBC (Bld) 5.5 % Normal 0-10 [facility] Comment on above: Performed By: #### L 501.080 #### [facility] [address] [place], [address] Neutrophils/100 WBC (Bld) 73.9 % High 47-70 [facility] Comment on above: Performed By: #### L 501.080 #### [facility] [address] [place], [address] Nucleated RBC (Bld) [#/Vol] 0 10*3/uL Normal 0-5 [facility] Comment on above: Performed By: #### L 501.080 #### [facility] [address] [place], [address] Platelet mean volume (Bld) [Entitic vol] 9.3 fL Normal 6.2-12.0 [facility] Comment on above: Performed By: #### L 501.080 #### [facility] [address] [place], [address] Platelets (Bld) [#/Vol] 231 10*3/uL Normal 150-450 [facility] Comment on above: Performed By: #### L 501.080 #### [facility] [address] [place], [address] RBC (Bld) [#/Vol] 5.03 10*6/uL Normal 4.6-6.2 [facility] Comment on above: Performed By: #### L 501.080 #### [facility] [address] [place], [address] RDW SD 41.3 fl Normal 35.1-43.9 [facility] Comment on above: Performed By: #### L 501.080 #### [facility] [address] [place], [address] WBC (Bld) [#/Vol] 9.0 10*3/uL Normal 4.4-11.0 [facility] Comment on above: Performed By: #### L 501.080 #### [facility] [address] [place], [address] Calcium [Mass/Vol]Ordered By : Pedro Krishnan on 11-27-2024 Serum or plasma calcium measurement (mass/volume) 8.8 mg/dL 8.5-10.1 [facility] Carbon dioxide measurementOr dered By: Pedro Krishnan on 11-27-2024 CO2 [Moles/Vol] 22.0 mmol/L 21.0-32.0 [facility] Carbon dioxide measurement 22.0 mmol/L 21.0-32.0 [facility] Chloride measurementOrdered By: Pedro Krishnan on 11-27-2024 Chloride [Moles/Vol] 101 mmol/L 98-107 [facility] Chloride measurement 101 mmol/L 98-107 [facility] Clarity (U)Ordered By: Pedro Krishnan on 11-27-2024 Urine clarity Clear Clear [facility] Color (U)Ordered By: Pedro persaud on 11-27-2024 Urine color determination Yellow Yellow [facility] Comprehensive Metabolic Prof ilon 11-27-2024 Albumin [Mass/Vol] 3.6 g/dL Normal 3.2-5.0 [facility] Comment on above: Performed By: #### L 501.080 #### [facility] [address] [place], [address] Albumin/Globulin [Mass ratio] 1.0 {ratio} Normal 0.9-2.4 [facility] Comment on above: Performed By: #### L 501.080 #### [facility] [address] [place], [address] ALK P 107 U/L Normal 45-117 [facility] Comment on above: Performed By: #### L 501.080 #### [facility] [address] [place], [address] ALT [Catalytic activity/Vol] 16 U/L Normal 16-61 [facility] Comment on above: Performed By: #### L 501.080 #### [facility] [address] [place], [address] AST [Catalytic activity/Vol] 11 U/L Low 15-37 [facility] Comment on above: Performed By: #### L 501.080 #### [facility] [address] [place], [address] Bilirubin [Mass/Vol] 0.40 mg/dL Normal 0.20-1.00 [facility] Comment on above: Result Comment: For patients on eltrombopag therapy, use of Dimension [place] TBIL is not recommended. Performed By: #### L 501.080 #### [facility] [address] [place], [address] BUN/CRE 12.7 RATIO Normal 10-20 [facility] Comment on above: Performed By: #### L 501.080 #### [facility] [address] [place], [address] CA,Total 8.8 mg/dL Normal 8.5-10.1 [facility] Comment on above: Performed By: #### L 501.080 #### [facility] [address] [place], [address] Chloride [Moles/Vol] 101 mmol/L Normal 98-107 [facility] Comment on above: Performed By: #### L 501.080 #### [facility] [address] [place], [address] CO2 [Moles/Vol] 22.0 mmol/L Normal 21.0-32.0 [facility] Comment on above: Performed By: #### L 501.080 #### [facility] [address] [place], [address] Creatinine [Mass/Vol] 0.94 mg/dL Normal 0.70-1.30 [facility] Comment on above: Result Comment: The validity of the calculated GFR GFRAA in patients over 70 years has not been determined. Clinical correlation is essential. Performed By: #### L 501.080 #### [facility] [address] [place], [address] EST GFR - AA 103 mL/min Normal >60 [facility] Comment on above: Result Comment: Afri can Taiwanese GFR Calc Performed By: #### L 501.080 #### [facility] [address] [place], [address] GAP 10 Normal 5-15 [facility] Comment on above: Performed By: #### L 501.080 #### [facility] [address] [place], [address] GFR/1.73 sq M.predicted among non-blacks MDRD (S/P/Bld) [Vol rate/Area] 86 mL/min/{1.73_m2} Normal >60 [facility] Comment on above: Result Comment: Non- GFR Calc Performed By: #### L 501.080 #### [facility] [address] [place], [address] Globulin (S) [Mass/Vol] 3.7 g/dL Normal 2.2-4.2 [facility] Comment on above: Performed By: #### L 501.080 #### [facility] [address] [place], [address] Glucose [Mass/Vol] 373 mg/dL High 74-106 [facility] Comment on above: Result Comment: Gluc ose result greater than or equal to 200 mg/dL suggests DIABETES MELLITUS per A.D.A. criteria. Performed By: #### L 501.080 #### [facility] [address] [place], [address] Potassium [Moles/Vol] 3.8 mmol/L Normal 3.5-5.1 [facility] Comment on above: Performed By: #### L 501.080 #### [facility] [address] [place], [address] Sodium [Moles/Vol] 133 mmol/L Low 136-145 [facility] Comment on above: Performed By: #### L 501.080 #### [facility] [address] [place], [address] T PROT 7.3 g/dL Normal 6.4-8.2 [facility] Comment on above: Performed By: #### L 501.080 #### [facility] [address] [place], [address] Urea nitrogen [Mass/Vol] 12 mg/dL Normal 7-18 [facility] Comment on above: Performed By: #### L 501.080 #### [facility] [address] [place], [address] Creatinine [Mass/Vol]Ordered By: Pedro Krishnan on 11-27-2024 Serum or plasma creatinine measurement (mass/volume) 0.94 mg/dL 0.70-1.30 [facility] Emergency Department Summary on 11-27-2024 Emergency Department Summary [facility] Medical Records Department [address] [place] [address] Emergency Department Summary 11/27/24 MR#: [id number] Acct: [id number] Name: JERALD YODER Rep #: [id number] : 1960 64 From: Pedro Krishnan DO PCP: Care Physician,No Primary Status:REG ER Location: ED HPI History of Present Illness Chief Complaint: Abd Pain Narrative Narrative: Patient is a 64-year-old male with a past medical history of hypercholesteremia, COPD, depression, LEONEL, hypertension, hyperlipidemia who presents to the emergency department chief complaint of abdominal pain. Patient states that he developed abdominal pain earlier today and came here for evaluation management. Patient denies any recent sick contacts.Patient complains of generalized cramping. Per triage note patient states that he felt like he had to poop but he could not but states that he did have a bowel movement earlier today I did confirm this and he has been passing gas. 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 Esophageal candidiasis Current use of insulin Back pain due to injury Restless legs Injury of head and neck COPD (chronic obstructive pulmonary disease) High cholesterol History of stress test Depression Chronic pain Non-smoker Sleep apnea Diabetes Hyperlipidemia Hypertension Myocardial infarct Home Medications ???Medication ???Instructions ???Recorded ???Last Taken ???Type metformin 500 mg tablet,extended 500 mg PO BID diabetes 05/02/19 03/18/22 History release 24 hr glipizide 5 mg tablet 5 mg PO BID diabetes 03/19/22 03/18/22 History insulin glargine 100 unit/mL (3 10 unit subcut BID diabetes 03/19/22 03/18/22 History mL) subcutaneous pen (Lantus Solostar U-100 Insulin) ondansetron 4 mg disintegrating 4 mg PO Q8H PRN nausea and 04/26/22 Unknown Rx tablet vomiting #10 tabs dicyclomine 20 mg tablet 20 mg PO TID PRN abdominal 08/07/22 Unknown Rx cramping #20 tabs diphenoxylate-atropine 2.5 1 tab PO 4X/DAY PRN PRN diarrhea 5 10/30/22 Unknown Rx mg-0.025 mg tablet (Lomotil) days #20 tabs hydrocortisone 1 % topical cream 1 applic topical TID PRN skin 08/26/23 Unknown Rx irritation #28.4 grams ibuprofen 600 mg tablet 600 mg PO Q8H PRN PRN pain #20 08/26/23 Unknown Rx TABLETS insulin glargine 100 unit/mL 1 unit subcut QPM 09/29/23 Unknown History subcutaneous solution (Lantus U-100 Insulin) levothyroxine 100 mcg tablet 100 mcg PO DAILY 09/29/23 Unknown History magnesium citrate (Citrate of 300 ml PO DAILY PRN constipation 12/08/23 Unknown Rx Magnesia oral) #296 mL meclizine 25 mg tablet 25 mg PO TID #30 tabs 12/08/23 Unknown Rx cyclobenzaprine 10 mg tablet 10 mg PO TID PRN Muscle Spasm #15 08/10/24 Unknown Rx TABLETS polyethylene glycol 3350 17 17 g PO DAILY PRN constipation 10/19/24 Unknown History gram/dose oral powder (Miralax) dicyclomine 20 mg tablet 20 mg PO TID #20 tabs 11/27/24 Unknown Rx ondansetron 4 mg disintegrating 4 mg PO Q6H PRN nausea and 11/27/24 Unknown Rx tablet vomiting #20 tabs Allergy/AdvReac Type Severity Reaction Status Date / Time diphenhydramine HCl (From Allergy Rash Verified 10/29/24 21:48 Benadryl) Penicillins Allergy Rash Verified 10/29/24 21:48 venom-honey bee (bee venom Allergy Swelling Verified 10/29/24 21:48 (honey bee)) Surgical History Hx of left knee surgery Hx of inguinal herniorrhaphy History of coronary artery stent placement Social History household members: none Smoking Status: Never smoker substance use type: does not use ROS ROS ED ROS Narrative Constitutional: Denies any fevers, chills, headaches, lightness, dizziness Eyes: Denies change in vision double vision blurry vision Cardiovascular: Denies chest pain or palpitations Respiratory: Denies coughing wheezing shortness of breath Abdomen: Complains of abdominal discomfort as noted above denies vomiting or diarrhea : Denies any urinary symptoms Neurological: Denies any numbness, weakness, tingling Musculoskeletal: Denies back pain Skin: Denies any rashes or lesions EXAM Physical Exam Narrative Exam Narrative: General: Patient was lying in bed rest comfortably did not appear to be in acute distress Head: Atraumatic, normocephalic Eyes: PERRL bilaterally, EOMI bilaterally, no conjunctival injection noted Neck: Soft, supple, trachea midline Cardiovascular: Regular rate and rhythm no murmurs gallops rubs noted Respiratory: Clear to auscultation bilaterally no rales rhonchi or wheeze noted Abdomen: Soft, nondistended, no tenderness palpation, bowel sounds present x 4, no juana (more content not included)... Normal [facility] Eosinophil percentageOrdered By: Pedro Krishnan on 11-27-2024 Eosinophils/100 WBC (Bld) 2.8 % 0-5 [facility] Eosinophil percentage 2.8 % 0-5 [facility] Erythrocyte distribution wid th (RBC) [Ratio]Ordered By: Pedro Krishnan on 11-27-2024 Erythrocyte distribution width ratio 14.2 % 11.6-14.6 [facility] Erythrocyte distribution width standard deviation 41.3 fl 35.1-43.9 [facility] Erythrocyte distribution wid th ratioOrdered By: Pedro Krishnan on 11-27-2024 Erythrocyte distribution width (RBC) [Ratio] 14.2 % 11.6-14.6 [facility] Erythrocyte distribution wid th standard deviationOrdered By: Pedro Krishnan on 11-27-2024 Erythrocyte distribution width (RBC) [Ratio] 41.3 fl 35.1-43.9 [facility] Estimated glomerular filtrat ion rate (GFR) AmericanOrdered By: Pedro Krishnan on 11-27-2024 Estimated glomerular filtration rate (GFR) 103 mL/min >60 [facility] Glomerular filtration rate ( GFR) estimationOrdered By: Pedro Krishnan on 11-27-2024 GFR/1.73 sq M.predicted among non-blacks MDRD (S/P/Bld) [Vol rate/Area] 86 mL/min/{1.73_m2} >60 [facility] Comment on above: Non- GFR Calc Glomerular filtration rate (GFR) estimation 86 mL/min >60 [facility] Glucose Ql (U)Ordered By: Bridger Krishnan on 11-27-2024 Urine glucose detection 1000 mg/dl High Normal [facility] Glucose measurementOrdered B y: Pedro Krishnan on 11-27-2024 Glucose [Mass/Vol] 373 mg/dL High 74-106 [facility] Comment on above: Glucose result great er than or equal to 200 mg/dLsuggests DIABETES MELLITUS per A.D.A. criteria. Glucose measurement 373 mg/dL High 74-106 [facility] Hematocrit Auto (Bld) [Volum e fraction]Ordered By: Pedro Krishnan on 11-27-2024 Hematocrit (Bld) [Volume fraction] 41.1 % 40-54 [facility] Automated blood hematocrit (percentage) 41.1 % 40-54 [facility] Hemoglobin measurementOrdere d By: Pedro Krishnan on 11-27-2024 Hemoglobin (Bld) [Mass/Vol] 14.2 g/dL 13.0-16.5 [facility] Hemoglobin measurement 14.2 g/dL 13.0-16.5 [facility] Immature granulocytes/100 WB C Auto (Bld)Ordered By: Pedro Krishnan on 11-27-2024 Immature granulocytes/100 WBC (Bld) 0.300 % 0.0-0.9 [facility] Comment on above: IG% - Immature Granu locytes (promyelocytes, myelocytes and metamyelocytes) > 1% indicates that a LEFT SHIFT is Present. Automated immature granulocyte percentage 0.300 % 0.0-0.9 [facility] Ketones Test strip Ql (U)Ord ered By: Pedro Krishnan on 11-27-2024 Ketones Ql (U) Negative Negative [facility] Laboratory - Chemistry and C hemistry - challengeOrdered By: Pedro Krishnan on 11-27-2024 AST [Catalytic activity/Vol] 11 U/L Low 15-37 [facility] Lipaseon 11-27-2024 Lipase [Catalytic activity/Vol] 23 U/L Normal 13-75 [facility] Comment on above: Result Comment: Oleksandr lopez note: LIPASE revised reference range effective 23. New Lipase methodology. Expected to produce lower values than the previous assay method. NEW Reference Range: 13 - 75 U/L Performed By: #### L 501.080 #### [facility] Laboratory [address] [place] [address]. [place], [address] Lipase measurementOrdered By : Pedro Krishnan on 11-27-2024 Lipase [Catalytic activity/Vol] 23 U/L 13-75 [facility] Comment on above: Please note:LIPASE r evised reference range effective 23. New Lipase methodology. Expected to produce lower values than the previous assay method. NEW Reference Range: 13 - 75 U/L Lipase measurement 23 U/L 13-75 [facility] Lymphocytes Auto (Unsp spec) [#/Vol]Ordered By: Pedro Krishnan on 11-27-2024 Absolute lymphocyte count 1.51 X10^3/uL 0.83-4.51 [facility] Lymphocytes/100 WBC Auto (Un sp spec)Ordered By: Pedro Krishnan on 11-27-2024 Automated lymphocyte count as percentage of total leukocytes 16.8 % Low 19-41 [facility] MCV (RBC) [Entitic vol]Order ed By: Pedro Krishnan on 11-27-2024 MCV (mean corpuscular volume) determination 81.7 fL 80-94 [facility] MCV (mean corpuscular volume ) determinationOrdered By: Pdero Krishnan on 11-27-2024 MCV (RBC) [Entitic vol] 81.7 fL 80-94 [facility] Mean corpuscular hemoglobin (MCH) determinationOrdered By: Pedro Krishnan on 11-27-2024 MCH (RBC) [Entitic mass] 28.2 pg 27.0-32.0 [facility] Mean corpuscular hemoglobin (MCH) determination 28.2 pg 27.0-32.0 [facility] Mean corpuscular hemoglobin concentration (MCHC) determinationOrdered By: Pedro Krishnan on 11-27-2024 MCHC (RBC) [Mass/Vol] 34.5 g/dL 32-36 [facility] Mean corpuscular hemoglobin concentration (MCHC) determination 34.5 g/dL -36 [facility] Mean platelet volume determi nationOrdered By: Pedro Krishnan on 11-27-2024 Platelet mean volume (Bld) [Entitic vol] 9.3 fL 6.2-12.0 [facility] Mean platelet volume determination 9.3 fl 6.2-12.0 [facility] Microscopic analysis of urin e for red blood cells (RBC)Ordered By: Pedro Krishnan on 11-27-2024 Microscopic analysis of urine for red blood cells (RBC) 0-5 SEEN /hpf 0-5 [facility] Monocyte percentageOrdered B y: Pedro Krishnan on 11-27-2024 Monocytes/100 WBC (Bld) 5.5 % 0-10 [facility] Monocyte percentage 5.5 % 0-10 [facility] Mucus LM Ql (Urine sed)Order ed By: Pedro Krishnan on 11-27-2024 Mucus Ql (Urine sed) 0 SEEN /hpf [facility] Mucus detection in urine sediment by light microscopy 0 SEEN /hpf [facility] Neutrophil percentageOrdered By: Pedro Krishnan on 11-27-2024 Neutrophils/100 WBC (Bld) 73.9 % High 47-70 [facility] Neutrophil percentage 73.9 % High 47-70 [facility] Nitrite Test strip Ql (U)Ord ered By: Pedro Krishnan on 11-27-2024 Nitrite Ql (U) Negative Negative [facility] No Panel InformationOrdered By: Pedro Krishnan on 11-27-2024 11 U/L Low 15-37 [facility] Nucleated red blood cell per centageOrdered By: Pedro Krishnan on 11-27-2024 Nucleated RBC/100 WBC (Bld) [Ratio] 0 % 0-5 [facility] Nucleated red blood cell percentage 0 % 0-5 [facility] Platelet countOrdered By: Bridger Krishnan on 11-27-2024 Platelets (Bld) [#/Vol] 231 10*3/uL 150-450 [facility] Platelet count 231 K/mm3 150-450 [facility] Potassium measurementOrdered By: Pedro Krishnan on 11-27-2024 Potassium [Moles/Vol] 3.8 mmol/L 3.5-5.1 [facility] Potassium measurement 3.8 mmol/L 3.5-5.1 [facility] Protein Test strip Ql (U)Ord ered By: Pedro Krishnan on 11-27-2024 Protein Ql (U) 30 mg/dl High Negative [facility] Urine protein assay by test strip, semi-quantitative 30 mg/dl High Negative [facility] RBC Auto (Bld) [#/Vol]Ordere d By: Pedro Krishnan on 11-27-2024 RBC (Bld) [#/Vol] 5.03 10*6/uL 4.6-6.2 [facility] Automated blood erythrocyte count 5.03 M/mm3 4.6-6.2 [facility] Serum anion gap measurementO rdered By: Pedro Krishnan on 11-27-2024 Anion gap [Moles/Vol] 10 mmol/L 5-15 [facility] Serum anion gap measurement 10 5-15 [facility] Serum globulin measurementOr dered By: Pedro Krishnan on 11-27-2024 Globulin (S) [Mass/Vol] 3.7 g/dL 2.2-4.2 [facility] Serum globulin measurement 3.7 g/dL 2.2-4.2 [facility] Serum or plasma alanine wagoner otransferase (ALT) measurementOrdered By: Pedro Krishnan on 11-27-2024 ALT [Catalytic activity/Vol] 16 U/L 16-61 [facility] Serum or plasma albumin yayo urement (mass/volume)Ordered By: Pedro Krishnan on 11-27-2024 Albumin [Mass/Vol] 3.6 g/dL 3.2-5.0 [facility] Serum or plasma alkaline andrzej sphatase measurementOrdered By: Pedro Krishnan on 11-27-2024 ALP [Catalytic activity/Vol] 107 U/L 45-117 [facility] Serum or plasma calcium yayo urement (mass/volume)Ordered By: Pedro Krishnan on 11-27-2024 Calcium [Mass/Vol] 8.8 mg/dL 8.5-10.1 [facility] Serum or plasma creatinine m easurement (mass/volume)Ordered By: Pedro Krishnan on 11-27-2024 Creatinine [Mass/Vol] 0.94 mg/dL 0.70-1.30 [facility] Comment on above: The validity of the calculated GFR & GFRAA in patients over 70 years has not been determined. Clinical correlation is essential. Serum or plasma urea nitroge n measurement (mass/volume)Ordered By: Pedro Krishnan on 11-27-2024 Urea nitrogen [Mass/Vol] 12 mg/dL 7-18 [facility] Sodium levelOrdered By: Vinicius Krishnan on 11-27-2024 Sodium [Moles/Vol] 133 mmol/L Low 136-145 [facility] Sodium level 133 mmol/L Low 136-145 [facility] Specific gravity (U) [Rel de nsity]Ordered By: Pedro Krishnan on 11-27-2024 Urine specific gravity measurement 1.020 1.002-1.030 [facility] Squamous epithelial cells de tection in urine sediment by light microscopyOrdered By: Pedro Krishnan on 11-27-2024 Epithelial cells.squamous LM Ql (Urine sed) 0-5 SEEN /hpf 0-5 [facility] Total proteinOrdered By: Issac Krishnan on 11-27-2024 Protein [Mass/Vol] 7.3 g/dL 6.4-8.2 [facility] Total protein 7.3 g/dL 6.4-8.2 [facility] Urea nitrogen [Mass/Vol]Orde red By: Pedro Krishnan on 11-27-2024 Serum or plasma urea nitrogen measurement (mass/volume) 12 mg/dL 7-18 [facility] Urinalysis, Completeon 11-27 BACTERIA RARE Normal None Seen [facility] Comment on above: Order Comment: CLEAN CATCH Performed By: #### L 400.0001 ####[facility] [address] [place], [address] EPI,SQUAMOUS 0-5 SEEN Normal 0-5 [facility] Comment on above: Order Comment: CLEAN CATCH Performed By: #### L 400.0001 ####[facility] [address] [place], [address] RBC 0-5 SEEN Normal 0-5 [facility] Comment on above: Order Comment: CLEAN CATCH Performed By: #### L 400.0001 ####[facility] [address] [place], [address] WBC 0-5 SEEN Normal 0-5 [facility] Comment on above: Order Comment: CLEAN CATCH Performed By: #### L 400.0001 ####[facility] [address] [place], [address] YEAST 1+ /hpf Normal None Seen [facility] Comment on above: Order Comment: CLEAN CATCH Performed By: #### L 400.0001 ####[facility] [address] [place], [address] Mucus Ql (Urine sed) 0 SEEN Normal [facility] Comment on above: Order Comment: CLEAN CATCH Performed By: #### L 400.0001 ####[facility] [address] [place], [address] Urine blood detectionOrdered By: Pedro Krishnan on 11-27-2024 Urine blood detection 10 /ul High Negative [facility] Urine clarityOrdered By: Issac Krishnan on 11-27-2024 Clarity (U) Clear Clear [facility] Urine color determinationOrd ered By: Pedro Krishnan on 11-27-2024 Color (U) Yellow Yellow [facility] Urine glucose detectionOrder ed By: Pedro Krishnan on 11-27-2024 Glucose Ql (U) 1000 mg/dl High Normal [facility] Urine leukocyte esterase det ection by dipstickOrdered By: Pedro Krishnan on 11-27-2024 Leukocyte esterase Test strip Ql (U) Negative Negative [facility] Urine pHOrdered By: Pedro wynne on 11-27-2024 pH (U) 6.0 [pH] 5.0 - 8.0 [facility] Urine sediment bacteria coun t by microscopy (number/high power field)Ordered By: Pedro Krishnan on 11-27-2024 Bacteria LM.HPF (Urine sed) [#/Area] RARE /hpf None Seen [facility] Urine sediment yeast count b y microscopy (number/high powered field)Ordered By: Pedro Krishnan on 11-27-2024 Yeast LM.HPF (Urine sed) [#/Area] 1 /[HPF] None Seen [facility] Urine specific gravity measu rementOrdered By: Pedro Krishnan on 11-27-2024 Specific gravity (U) [Rel density] 1.020 1.002-1.030 [facility] Urine total bilirubin detect ion by test stripOrdered By: Pedro Krishnan on 11-27-2024 Urine total bilirubin detection by test strip Negative Negative [facility] Urine urobilinogen measureme ntOrdered By: Pedro Krishnan on 11-27-2024 Urobilinogen Ql (U) Normal mg/dl Normal [facility] Urobilinogen Ql (U)Ordered B y: Pedro Krishnan on 11-27-2024 Urine urobilinogen measurement Normal mg/dl Normal [facility] White blood cell (WBC) count Ordered By: Pedro Krishnan on 11-27-2024 WBC (Bld) [#/Vol] 9.0 10*3/uL 4.4-11.0 [facility] White blood cell (WBC) count 9.0 K/mm3 4.4-11.0 [facility] White blood cell countOrdere d By: Pedro Krishnan on 11-27-2024 White blood cell count 0-5 SEEN /hpf 0-5 [facility] White blood cell count 0-5 SEEN /hpf 0-5 [facility] Yeast LM.HPF (Urine sed) [#/ Area]Ordered By: Pedro Krishnan on 11-27-2024 Urine sediment yeast count by microscopy (number/high powered field) 1+ /hpf None Seen [facility] pH (U)Ordered By: Pedro perez on 11-27-2024 Urine pH 6.0 5.0 - 8.0 [facility] Absolute neutrophil countOrd ered By: Johann Lemons on 10-30-2024 Absolute neutrophil count 4.5 X10^3/uL 2.0-7.7 [facility] Basic Metabolic Profile (BMP )on 10-30-2024 BUN/CRE 21.2 RATIO High 10-20 [facility] Comment on above: Performed By: #### L 100.0100, L501.5200, L500.2500 ####[facility] [address] [place], [address] CA,Total 9.0 mg/dL Normal 8.5-10.1 [facility] Comment on above: Performed By: #### L 100.0100, L501.5200, L500.2500 ####[facility] [address] [place], [address] Chloride [Moles/Vol] 101 mmol/L Normal 98-107 [facility] Comment on above: Performed By: #### L 100.0100, L501.5200, L500.2500 ####[facility] [address] [place], [address] CO2 [Moles/Vol] 29.0 mmol/L Normal 21.0-32.0 [facility] Comment on above: Performed By: #### L 100.0100, L501.5200, L500.2500 ####[facility] [address] [place], [address] Creatinine [Mass/Vol] 0.90 mg/dL Normal 0.70-1.30 [facility] Comment on above: Result Comment: The validity of the calculated GFR GFRAA in patients over 70 years has not been determined. Clinical correlation is essential. Performed By: #### L 100.0100, L501.5200, L500.2500 ####[facility] [address] [place], [address] EST GFR - AA 110 mL/min Normal >60 [facility] Comment on above: Result Comment: Afri can Taiwanese GFR Calc Performed By: #### L 100.0100, L501.5200, L500.2500 ####[facility] [address] [place], [address] GAP 7 Normal 5-15 [facility] Comment on above: Performed By: #### L 100.0100, L501.5200, L500.2500 ####[facility] [address] [place], [address] GFR/1.73 sq M.predicted among non-blacks MDRD (S/P/Bld) [Vol rate/Area] 91 mL/min/{1.73_m2} Normal >60 [facility] Comment on above: Result Comment: Non- GFR Calc Performed By: #### L 100.0100, L501.5200, L500.2500 ####[facility] [address] [place], [address] Glucose [Mass/Vol] 361 mg/dL High 74-106 [facility] Comment on above: Result Comment: Gluc ose result greater than or equal to 200 mg/dL suggests DIABETES MELLITUS per A.D.A. criteria. Performed By: #### L 100.0100, L501.5200, L500.2500 ####[facility] [address] [place], [address] Potassium [Moles/Vol] 3.8 mmol/L Normal 3.5-5.1 [facility] Comment on above: Performed By: #### L 100.0100, L501.5200, L500.2500 ####[facility] [address] [place], [address] Sodium [Moles/Vol] 136 mmol/L Normal 136-145 [facility] Comment on above: Performed By: #### L 100.0100, L501.5200, L500.2500 ####[facility] [address] [place], [address] Urea nitrogen [Mass/Vol] 19 mg/dL High 7-18 [facility] Comment on above: Performed By: #### L 100.0100, L501.5200, L500.2500 ####[facility] [address] [place], [address] Basophil percentageOrdered B y: Johann Lemons on 10-30-2024 Basophil percentage 0.4 % 0-1 [facility] Blood urea nitrogen (BUN)/cr eatinine ratioOrdered By: Johann Lemons on 10-30-2024 Blood urea nitrogen (BUN)/creatinine ratio 21.2 RATIO High 10-20 [facility] CBC W/Diff, Automatedon 12-3 Absolute Lymph 1.53 X10 3/uL Normal 0.83-4.51 [facility] Comment on above: Performed By: #### L 100.0100, L501.5200, L500.2500 ####[facility] [address] [place], [address] Absolute Neut 4.5 X10 3/uL Normal 2.0-7.7 [facility] Comment on above: Performed By: #### L 100.0100, L501.5200, L500.2500 ####[facility] [address] [place], [address] Basophils/100 WBC (Bld) 0.4 % Normal 0-1 [facility] Comment on above: Performed By: #### L 100.0100, L501.5200, L500.2500 ####[facility] [address] [place], [address] Eosinophils/100 WBC (Bld) 3.5 % Normal 0-5 [facility] Comment on above: Performed By: #### L 100.0100, L501.5200, L500.2500 ####[facility] [address] [place], [address] Erythrocyte distribution width (RBC) [Ratio] 13.2 % Normal 11.6-14.6 [facility] Comment on above: Performed By: #### L 100.0100, L501.5200, L500.2500 ####[facility] [address] [place], [address] Hematocrit (Bld) [Volume fraction] 39.5 % Low 40-54 [facility] Comment on above: Performed By: #### L 100.0100, L501.5200, L500.2500 ####[facility] [address] [place], [address] Hemoglobin (Bld) [Mass/Vol] 14.2 g/dL Normal 13.0-16.5 [facility] Comment on above: Performed By: #### L 100.0100, L501.5200, L500.2500 ####[facility] [address] [place], [address] IG% 0.600 Normal 0.0-0.9 [facility] Comment on above: Result Comment: IG% - Immature Granulocytes (promyelocytes, myelocytes and metamyelocytes) > 1% indicates that a LEFT SHIFT is Present. Performed By: #### L 100.0100, L501.5200, L500.2500 ####[facility] [address] [place], [address] Lymphocytes/100 WBC (Bld) 22.4 % Normal 19-41 [facility] Comment on above: Performed By: #### L 100.0100, L501.5200, L500.2500 ####[facility] [address] [place], [address] MCH (RBC) [Entitic mass] 29.0 pg Normal 27.0-32.0 [facility] Comment on above: Performed By: #### L 100.0100, L501.5200, L500.2500 ####[facility] [address] [place], [address] MCHC (RBC) [Mass/Vol] 35.9 g/dL Normal 32-36 [facility] Comment on above: Performed By: #### L 100.0100, L501.5200, L500.2500 ####[facility] [address] [place], [address] MCV (RBC) [Entitic vol] 80.6 fL Normal 80-94 [facility] Comment on above: Performed By: #### L 100.0100, L501.5200, L500.2500 ####[facility] [address] [place], [address] Monocytes/100 WBC (Bld) 7.2 % Normal 0-10 [facility] Comment on above: Performed By: #### L 100.0100, L501.5200, L500.2500 ####[facility] [address] [place], [address] Neutrophils/100 WBC (Bld) 65.9 % Normal 47-70 [facility] Comment on above: Performed By: #### L 100.0100, L501.5200, L500.2500 ####[facility] [address] [place], [address] Nucleated RBC (Bld) [#/Vol] 0 10*3/uL Normal 0-5 [facility] Comment on above: Performed By: #### L 100.0100, L501.5200, L500.2500 ####[facility] [address] [place], [address] Platelet mean volume (Bld) [Entitic vol] 9.1 fL Normal 6.2-12.0 [facility] Comment on above: Performed By: #### L 100.0100, L501.5200, L500.2500 ####[facility] [address] [place], [address] Platelets (Bld) [#/Vol] 158 10*3/uL Normal 150-450 [facility] Comment on above: Performed By: #### L 100.0100, L501.5200, L500.2500 ####[facility] [address] [place], [address] RBC (Bld) [#/Vol] 4.90 10*6/uL Normal 4.6-6.2 [facility] Comment on above: Performed By: #### L 100.0100, L501.5200, L500.2500 ####[facility] [address] [place], [address] RDW SD 38.2 fl Normal 35.1-43.9 [facility] Comment on above: Performed By: #### L 100.0100, L501.5200, L500.2500 ####[facility] [address] [place], [address] WBC (Bld) [#/Vol] 6.8 10*3/uL Normal 4.4-11.0 [facility] Comment on above: Performed By: #### L 100.0100, L501.5200, L500.2500 ####[facility] [address] [place], [address] Calcium [Mass/Vol]Ordered By : Johann Lemons on 10-30-2024 Serum or plasma calcium measurement (mass/volume) 9.0 mg/dL 8.5-10.1 [facility] Carbon dioxide measurementOr dered By: Johann Lemons on 10-30-2024 Carbon dioxide measurement 29.0 mmol/L 21.0-32.0 [facility] Chloride measurementOrdered By: Johann Lemons on 10-30-2024 Chloride measurement 101 mmol/L 98-107 [facility] Clarity (U)Ordered By: Roland Lemons on 10-30-2024 Urine clarity Clear Clear [facility] Color (U)Ordered By: Johann Lemons on 10-30-2024 Urine color determination Yellow Yellow [facility] Creatinine [Mass/Vol]Ordered By: Johann Lemons on 10-30-2024 Serum or plasma creatinine measurement (mass/volume) 0.90 mg/dL 0.70-1.30 [facility] Emergency Department Summary on 10-30-2024 Emergency Department Summary [facility] Medical Records Department [address] [place] [address] Emergency Department Summary 10/30/24 MR#: [id number] Acct: [id number] Name: JERALD YODER Rep #: [id number] : 1960 64 From: Johann Lemons DO PCP: Dr. Linden Chavez, DO Status:DEP ER Location: ED HPI History of Present Illness Chief Complaint: Weakness Informant: patient and EMS Narrative Narrative: Patient is a 64-year-old male with history of insulin-dependent diabetes hypertension hyperlipidemia and hypothyroidism. He states that he just feels weak. He states he cannot expound upon his weakness any further than that and denies fevers or chills nausea vomiting diarrhea or dysuria. Secondary to his sensation of feeling weak he called EMS was brought in for evaluation 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 Esophageal candidiasis Current use of insulin Back pain due to injury Restless legs Injury of head and neck COPD (chronic obstructive pulmonary disease) High cholesterol History of stress test Depression Chronic pain Non-smoker Sleep apnea Diabetes Hyperlipidemia Hypertension Myocardial infarct Home Medications ???Medication ???Instructions ???Recorded ???Last Taken ???Type metformin 500 mg tablet,extended 500 mg PO BID diabetes 05/02/19 03/18/22 History release 24 hr glipizide 5 mg tablet 5 mg PO BID diabetes 03/19/22 03/18/22 History insulin glargine 100 unit/mL (3 10 unit subcut BID diabetes 03/19/22 03/18/22 History mL) subcutaneous pen (Lantus Solostar U-100 Insulin) ondansetron 4 mg disintegrating 4 mg PO Q8H PRN nausea and 04/26/22 Unknown Rx tablet vomiting #10 tabs dicyclomine 20 mg tablet 20 mg PO TID PRN abdominal 08/07/22 Unknown Rx cramping #20 tabs diphenoxylate-atropine 2.5 1 tab PO 4X/DAY PRN PRN diarrhea 5 10/30/22 Unknown Rx mg-0.025 mg tablet (Lomotil) days #20 tabs hydrocortisone 1 % topical cream 1 applic topical TID PRN skin 08/26/23 Unknown Rx irritation #28.4 grams ibuprofen 600 mg tablet 600 mg PO Q8H PRN PRN pain #20 08/26/23 Unknown Rx TABLETS insulin glargine 100 unit/mL 1 unit subcut QPM 09/29/23 Unknown History subcutaneous solution (Lantus U-100 Insulin) levothyroxine 100 mcg tablet 100 mcg PO DAILY 09/29/23 Unknown History magnesium citrate (Citrate of 300 ml PO DAILY PRN constipation 12/08/23 Unknown Rx Magnesia oral) #296 mL meclizine 25 mg tablet 25 mg PO TID #30 tabs 12/08/23 Unknown Rx cyclobenzaprine 10 mg tablet 10 mg PO TID PRN Muscle Spasm #15 08/10/24 Unknown Rx TABLETS polyethylene glycol 3350 17 17 g PO DAILY PRN constipation 10/19/24 Unknown History gram/dose oral powder (Miralax) Allergy/AdvReac Type Severity Reaction Status Date / Time diphenhydramine HCl (From Allergy Rash Verified 10/29/24 21:48 Benadryl) Penicillins Allergy Rash Verified 10/29/24 21:48 venom-honey bee (bee venom Allergy Swelling Verified 10/29/24 21:48 (honey bee)) Surgical History Hx of left knee surgery Hx of inguinal herniorrhaphy History of coronary artery stent placement Social History household members: none Smoking Status: Never smoker substance use type: does not use ROS ROS ED Constitutional Constitutional ED: Denies chills or fever(s) Eyes Eyes: Denies change in vision ENT ENT ED: Denies sore throat Cardiovascular Cardiovascular: Denies chest pain Respiratory/Chest Respiratory/Chest: Denies cough or dyspnea Gastrointestinal Gastrointestinal: Denies abdominal pain, diarrhea, nausea or vomiting Genitourinary Genitourinary ED: Denies dysuria Musculoskeletal Musculoskeletal: Denies myalgias Integumentary Denies rash Neurologic Neurologic: Reports weakness; Denies headache(s) Hematologic/Lymphatic Hematologic/Lymphatic: Denies easy bleeding or easy bruising EXAM Physical Exam Const Vital Signs: 10/29/24 21:46 10/29/24 23:39 10/30/24 00:19 Temperature 98.2 F Temperature Source Oral Pulse Rate 82 66 Respiratory Rate 16 18 Respiratory Effort Normal Non-Labored Respiratory Pattern Normal Blood Pressure 123/64 H 114/68 Blood Pressure Mean 83 83 Pulse Ox 96 95 Oxygen Delivery Method Room Air Room Air 10/30/24 01:00 10/30/24 03:00 10/30/24 03:11 Temperature 97.4 F L Temperature Source Pulse Rate 79 77 77 Respiratory Rate 15 18 18 Respiratory Effort Respiratory Pattern Blood Pressure 128/90 H 103/89 H 103/89 H Blood Pressure Mean 102 93 93 Pulse Ox 94 95 95 Oxygen Delivery Method Room Air Room Air Positi (more content not included)... Normal [facility] Eosinophil percentageOrdered By: Johann Lemons on 10-30-2024 Eosinophil percentage 3.5 % 0-5 [facility] Erythrocyte distribution wid th (RBC) [Ratio]Ordered By: Johann Lemons on 10-30-2024 Erythrocyte distribution width ratio 13.2 % 11.6-14.6 [facility] Erythrocyte distribution width standard deviation 38.2 fl 35.1-43.9 [facility] Estimated glomerular filtrat ion rate (GFR) AmericanOrdered By: Johann Lemons on 10-30-2024 Estimated glomerular filtration rate (GFR) 110 mL/min >60 [facility] Glomerular filtration rate ( GFR) estimationOrdered By: Johann Lemons on 10-30-2024 Glomerular filtration rate (GFR) estimation 91 mL/min >60 [facility] Glucose Ql (U)Ordered By: Julia Lemons on 10-30-2024 Urine glucose detection 1000 mg/dl High Normal [facility] Glucose measurementOrdered B y: Johann Lemons on 10-30-2024 Glucose measurement 361 mg/dL High 74-106 [facility] Hematocrit Auto (Bld) [Volum e fraction]Ordered By: Johann Lemons on 10-30-2024 Automated blood hematocrit (percentage) 39.5 % Low 40-54 [facility] Hemoglobin measurementOrdere d By: Johann Lemons on 10-30-2024 Hemoglobin measurement 14.2 g/dL 13.0-16.5 [facility] Immature granulocytes/100 WB C Auto (Bld)Ordered By: Johann Lemons on 10-30-2024 Automated immature granulocyte percentage 0.600 % 0.0-0.9 [facility] Ketones Test strip Ql (U)Ord ered By: Johann Lemons on 10-30-2024 Urine ketones detection by test strip 5 mg/dl High Negative [facility] Lymphocytes Auto (Unsp spec) [#/Vol]Ordered By: Johann Lemons on 10-30-2024 Absolute lymphocyte count 1.53 X10^3/uL 0.83-4.51 [facility] Lymphocytes/100 WBC Auto (Un sp spec)Ordered By: Johann Lemons on 10-30-2024 Automated lymphocyte count as percentage of total leukocytes 22.4 % 19-41 [facility] M100.678on 10-30-2024 M100.678 Pending SARS-CoV-2 (COVID 19) Negative INFLUENZA A Negative INFLUENZA B Negative RSV PCR Negative Normal [facility] Comment on above: Performed By: #### L 501.080 #### [facility] Laboratory [address] [facility] [place], [address] MCV (RBC) [Entitic vol]Order ed By: Johann Lemons on 10-30-2024 MCV (mean corpuscular volume) determination 80.6 fL 80-94 [facility] Magnesiumon 10-30-2024 Magnesium [Mass/Vol] 1.5 mg/dL Low 1.6-2.6 [facility] Comment on above: Performed By: #### L 100.0100, L501.5200, L500.2500 ####[facility] [address] [place], [address] Magnesium measurementOrdered By: Johann Lemons on 10-30-2024 Magnesium measurement 1.5 mg/dL Low 1.6-2.6 [facility] Mean corpuscular hemoglobin (MCH) determinationOrdered By: Johann Lemons on 10-30-2024 Mean corpuscular hemoglobin (MCH) determination 29.0 pg 27.0-32.0 [facility] Mean corpuscular hemoglobin concentration (MCHC) determinationOrdered By: Johann Lemons on 10-30-2024 Mean corpuscular hemoglobin concentration (MCHC) determination 35.9 g/dL 32-36 [facility] Mean platelet volume determi nationOrdered By: Johann Lemons on 10-30-2024 Mean platelet volume determination 9.1 fl 6.2-12.0 [facility] Monocyte percentageOrdered B y: Johann Lemons on 10-30-2024 Monocyte percentage 7.2 % 0-10 [facility] Neutrophil percentageOrdered By: Johann Lemons on 10-30-2024 Neutrophil percentage 65.9 % 47-70 [facility] Nucleated red blood cell per centageOrdered By: Johann Lemons on 10-30-2024 Nucleated red blood cell percentage 0 % 0-5 [facility] Platelet countOrdered By: Julia Lemons on 10-30-2024 Platelet count 158 K/mm3 150-450 [facility] Potassium measurementOrdered By: Johann Lemons on 10-30-2024 Potassium measurement 3.8 mmol/L 3.5-5.1 [facility] Protein Test strip Ql (U)Ord ered By: Johann Lemons on 10-30-2024 Urine protein assay by test strip, semi-quantitative 15 mg/dl High Negative [facility] RBC Auto (Bld) [#/Vol]Ordere d By: Johann Lemons on 10-30-2024 Automated blood erythrocyte count 4.90 M/mm3 4.6-6.2 [facility] Serum anion gap measurementO rdered By: Johann Lemons on 10-30-2024 Serum anion gap measurement 7 5-15 [facility] Sodium levelOrdered By: Keith Lemons on 10-30-2024 Sodium level 136 mmol/L 136-145 [facility] Specific gravity (U) [Rel de nsity]Ordered By: Johann Lemons on 10-30-2024 Urine specific gravity measurement 1.015 1.002-1.030 [facility] Urea nitrogen [Mass/Vol]Orde red By: Johann Lemons on 10-30-2024 Serum or plasma urea nitrogen measurement (mass/volume) 19 mg/dL High 7-18 [facility] Urinalysis, Completeon 10-30 BACTERIA 0 SEEN Normal None Seen [facility] Comment on above: Order Comment: NO CTOR TO SPECIFY Performed By: #### L 501.080 #### [facility] Laboratory [address] [place], [address] EPI,SQUAMOUS 0 SEEN Normal 0-5 [facility] Comment on above: Order Comment: NO CTOR TO SPECIFY Performed By: #### L 501.080 #### [facility] Laboratory [address] [place], [address] Mucus Ql (Urine sed) 0 SEEN Normal [facility] Comment on above: Order Comment: NO CTOR TO SPECIFY Performed By: #### L 501.080 #### [facility] Laboratory [address] [place], [address] RBC 0 SEEN Normal 0-5 [facility] Comment on above: Order Comment: NO CTOR TO SPECIFY Performed By: #### L 501.080 #### [facility] Laboratory [address] [place], [address] WBC 0 SEEN Normal 0-5 [facility] Comment on above: Order Comment: NO CTOR TO SPECIFY Performed By: #### L 501.080 #### [facility] Laboratory [address] [place], [address] Urine total bilirubin detect ion by test stripOrdered By: Johann Lemons on 10-30-2024 Urine total bilirubin detection by test strip Negative Negative [facility] Urobilinogen Ql (U)Ordered B y: Johann Lemons on 10-30-2024 Urine urobilinogen measurement Normal mg/dl Normal [facility] White blood cell (WBC) count Ordered By: Johann Lemons on 10-30-2024 White blood cell (WBC) count 6.8 K/mm3 4.4-11.0 [facility] White blood cell countOrdere d By: Johann Lemons on 10-30-2024 White blood cell count 0 SEEN /hpf [facility] pH (U)Ordered By: Wilmer on 10-30-2024 Urine pH 6.0 5.0 - 8.0 [facility] Chest 1 View (Portable)on Chest 1 View (Portable) [facility] Imaging Services [address] [place], [place] [address] Chest 1 View (Portable) MR#: [id number] Acct: [id number] Name: JERALD YODER Rep #: [id number] : 1960 M 64 From: Dina Christina PCP: Dr. Linden Chavez DO Status: REG ER Study: Chest 1 View (Portable) Date of Exam: 10/29/24 Exam# [id number] Ordering Dr: [place] [id number] INDICATION: weakness EXAMINATION/TECHNIQUE: X-RAY - XR Chest 1 View COMPARISON: CR Chest Oct 19 2024 4:46am FINDINGS: LINES/DEVICES: None. LUNGS: No consolidation, edema or effusion. No pneumothorax. Subsegmental atelectasis in the right lung base. MEDIASTINUM AND CARDIOVASCULAR STRUCTURES: Cardiac silhouette not enlarged. Central airways and mediastinal contour are unremarkable. BONES AND SOFT TISSUES: Unremarkable. RAD/Chest 1 View (Portable) IMPRESSION: No radiographic evidence of acute cardiopulmonary disease. Electronically Signed: Dina Tsang MD at 1:07 EST Reading Location ID and State: [facility] / [place] Tel , Service support , CC: Dr. Linden Chavez DO; Johann Lemons DO Project Structural Engineer: Signed Normal [facility] 12 Lead EKGon 10-19-2024 12 Lead EKG [facility] Cardiovascular Services [address] [place] [address] 12 Lead EKG 10/19/24 0422 MR#: [id number] Acct: [id number] Name: JERALD YODER Rep #: [id number] : 1960 64 From: Cesar Mccoy MD Attending Dr: Status: DEP ER Ordering Dr: Live Ashley MD Date: 10/19/24 Location: ED Sex: M C Admitted: Test Reason : DYSRHYTHMIA Blood Pressure : */* mmHG Vent. Rate : 73 BPM Atrial Rate : 73 BPM P-R Int : 198 ms QRS Dur : 100 ms QT Int : 408 ms P-R-T Axes : 47 -61 36 degrees QTcB Int : 449 ms Normal sinus rhythm Incomplete right bundle branch block Left anterior fascicular block Abnormal ECG Confirmed by CESAR MCCOY MD ([id number]), publications editor CARLA HERNANDEZ ([id number]) on 10/19/2024 8:17:03 AM Referred By: Confirmed By: CESAR MCCOY MD 10/19/24 0817 Date Cesar Mccoy MD CC: Dr. Live Ashley MD; Dr. Linden Chavez DO Signed [facility] Absolute neutrophil countOrd ered By: Live Ashley on 10-19-2024 Absolute neutrophil count 4.7 X10^3/uL 2.0-7.7 [facility] Basic Metabolic Profile (BMP )on 10-19-2024 BUN/CRE 14.7 RATIO Normal 08-19 [facility] Comment on above: Order Comment: 'TROP ' Serial specimen #1, #2 or #3: 1 Performed By: #### L 100.0100, L500.4050 #### [facility] Laboratory [address] [place], [address] CA,Total 8.8 mg/dL Normal 8.5-10.1 [facility] Comment on above: Order Comment: 'TROP ' Serial specimen #1, #2 or #3: 1 Performed By: #### L 100.0100, L500.4050 #### [facility] Laboratory [address] [place], [address] Chloride [Moles/Vol] 99 mmol/L Normal 98-107 [facility] Comment on above: Order Comment: 'TROP ' Serial specimen #1, #2 or #3: 1 Performed By: #### L 100.0100, L500.4050 #### [facility] Laboratory [address] [place], [address] CO2 [Moles/Vol] 26.0 mmol/L Normal 21.0-32.0 [facility] Comment on above: Order Comment: 'TROP ' Serial specimen #1, #2 or #3: 1 Performed By: #### L 100.0100, L500.4050 #### [facility] Laboratory [address] [place], [address] Creatinine [Mass/Vol] 1.02 mg/dL Normal 0.70-1.30 [facility] Comment on above: Order Comment: 'TROP ' Serial specimen #1, #2 or #3: 1 Result Comment: The validity of the calculated GFR GFRAA in patients over 70 years has not been determined. Clinical correlation is essential. Performed By: #### L 100.0100, L500.4050 #### [facility] Laboratory [address] [place], [address] ECRCL 92.21 ml/min Normal [facility] Comment on above: Order Comment: 'TROP ' Serial specimen #1, #2 or #3: 1 Performed By: #### L 100.0100, L500.4050 #### [facility] Laboratory [address] [place], [address] EST GFR - AA 94 mL/min Normal >60 [facility] Comment on above: Order Comment: 'TROP ' Serial specimen #1, #2 or #3: 1 Result Comment: Afri can Taiwanese GFR Calc Performed By: #### L 100.0100, L500.4050 #### [facility] Laboratory [address] [place], [address] GAP 5 Normal 5-15 [facility] Comment on above: Order Comment: 'TROP ' Serial specimen #1, #2 or #3: 1 Performed By: #### L 100.0100, L500.4050 #### [facility] Laboratory [address] [place], [address] GFR/1.73 sq M.predicted among non-blacks MDRD (S/P/Bld) [Vol rate/Area] 78 mL/min/{1.73_m2} Normal >60 [facility] Comment on above: Order Comment: 'TROP ' Serial specimen #1, #2 or #3: 1 Result Comment: Non- GFR Calc Performed By: #### L 100.0100, L500.4050 #### [facility] Laboratory [address] [place], [address] Glucose [Mass/Vol] 494 mg/dL Invalid Interpretation Code 74-106 [facility] Comment on above: Order Comment: 'TROP ' Serial specimen #1, #2 or #3: 1 Result Comment: Crit ical Result(s) Called at: 04:42:01 10/19/2024 by: Carla Montgomery LSparr. Results read back by same. Glucose result greater than or equal to 200 mg/dL suggests DIABETES MELLITUS per A.D.A. criteria. Performed By: #### L 100.0100, L500.4050 #### [facility] Laboratory [address] [place], [address] Potassium [Moles/Vol] 3.7 mmol/L Normal 3.5-5.1 [facility] Comment on above: Order Comment: 'TROP ' Serial specimen #1, #2 or #3: 1 Performed By: #### L 100.0100, L500.4050 #### [facility] Laboratory [address] [place], [address] Sodium [Moles/Vol] 130 mmol/L Low 136-145 [facility] Comment on above: Order Comment: 'TROP ' Serial specimen #1, #2 or #3: 1 Performed By: #### L 100.0100, L500.4050 #### [facility] Laboratory [address] [place], [address] Urea nitrogen [Mass/Vol] 15 mg/dL Normal 7-18 [facility] Comment on above: Order Comment: 'TROP ' Serial specimen #1, #2 or #3: 1 Performed By: #### L 100.0100, L500.4050 #### [facility] Laboratory [address] [place], [address] Basophil percentageOrdered B y: Live Ashley on 10-19-2024 Basophil percentage 1.0 % 0-1 [facility] Bedside Glucoseon 10-19-2024 FINGERSTICK GLU 263 mg/dL High [address] [place] [address] Comment on above: Result Comment: TAYLOR GEMENT OF PATIENT CARE PER NURSING PROTOCOL Performed By: #### L 100.0100, L500.4050 #### [facility] Laboratory [address] [place], [address] FINGERSTICK GLU 353 mg/dL High [address] [place] [address] Comment on above: Result Comment: TAYLOR GEMENT OF PATIENT CARE PER NURSING PROTOCOL Performed By: #### L 100.0100, L500.4050 #### [facility] Laboratory [address] [place], [address] FINGERSTICK GLU > 500 Invalid Interpretation Code [address] [place] [address] Comment on above: Result Comment: TAYLOR GEMENT OF PATIENT CARE PER NURSING PROTOCOL Performed By: #### L 501.080 ####[facility] [address] [place], [address] Blood urea nitrogen (BUN)/cr eatinine ratioOrdered By: Live Ashley on 10-19-2024 Blood urea nitrogen (BUN)/creatinine ratio 14.7 RATIO 08-19 [facility] CBC W/Diff, Automatedon 10-01 PLT EST ADEQUATE Normal ADEQ [facility] Comment on above: Performed By: #### L 100.0100, L500.4050 #### [facility] Laboratory [address] [place], [address] RED CELL MORPH NORM C+C Normal NORM C C [facility] Comment on above: Performed By: #### L 100.0100, L500.4050 #### [facility] Laboratory [address] [place], [address] SMEAR COMMENT SCANNED Normal [facility] Comment on above: Performed By: #### L 100.0100, L500.4050 #### [facility] Laboratory [address] [place], [address] Calcium [Mass/Vol]Ordered By : Live Ashley on 10-19-2024 Serum or plasma calcium measurement (mass/volume) 8.8 mg/dL 8.5-10.1 [facility] Carbon dioxide measurementOr dered By: Live Ashley on 10-19-2024 Carbon dioxide measurement 26.0 mmol/L 21.0-32.0 [facility] Chest PA and Lateralon 10-19 Chest PA and Lateral [facility] Imaging Services [address] [place] [address] Chest PA and Lateral MR#: [id number] Acct: [id number] Name: JERALD YODER Rep #: [id number] : 1960 M 64 From: Johann Aldrich MD PCP: Dr. Linden Chavez, DO Status: REG ER Study: Chest PA and Lateral Date of Exam: 10/19/24 Exam# [id number] Ordering Dr: [place] [id number] EXAM: XR CHEST, 2 VIEWS CLINICAL INDICATION: cough, copd TECHNIQUE: Frontal and lateral views of the chest. COMPARISON: May 08, 2024. FINDINGS: LUNGS AND PLEURAL SPACES: Scarring at the right lower lung redemonstrated. No pneumothorax. No effusion. No consolidation. HEART: Unremarkable. Cardiac silhouette not enlarged. MEDIASTINUM: Central airways and mediastinal contour are unremarkable. BONES/JOINTS: Unremarkable. No acute fracture. SOFT TISSUES: Unremarkable. RAD/Chest PA and Lateral IMPRESSION: No change or acute disease. Electronically Signed: Johann Aldrich MD at 5:34 EST , CC: Dr. Live Ashley MD; Dr. Linden Chavez DO Project Structural Engineer: Signed Normal [facility] Chloride measurementOrdered By: Live Ashley on 10-19-2024 Chloride measurement 99 mmol/L 98-107 [facility] Clarity (U)Ordered By: Melissa Ashley on 10-19-2024 Urine clarity Clear Clear [facility] Color (U)Ordered By: Live Ashley on 10-19-2024 Urine color determination Yellow Yellow [facility] Creatinine [Mass/Vol]Ordered By: Live Ashley on 10-19-2024 Serum or plasma creatinine measurement (mass/volume) 1.02 mg/dL 0.70-1.30 [facility] Emergency Department Summary on 10-19-2024 Emergency Department Summary [facility] Medical Records Department [address] [place] [address] Emergency Department Summary 10/19/24 MR#: [id number] Acct: [id number] Name: JERALD YODER Rep #: [id number] : 1960 64 From: Live Ashley MD PCP: Dr. Linden Chavez DO Status:REG ER Location: ED HPI History of Present Illness Chief Complaint: General Illness Informant: patient Narrative Narrative: 64-year-old male very poor historian presents at 4 AM because 20 minutes ago while he was watching TV he suddenly started feeling poorly. He states he had no other new symptoms but he did feel like maybe he would pass out. He does not feel like that right now so when I asked him how long that lasted, he states about an hour. 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 Esophageal candidiasis Current use of insulin Back pain due to injury Restless legs Injury of head and neck COPD (chronic obstructive pulmonary disease) High cholesterol History of stress test Depression Chronic pain Non-smoker Sleep apnea Diabetes Hyperlipidemia Hypertension Myocardial infarct Home Medications ???Medication ???Instructions ???Recorded ???Last Taken ???Type metformin 500 mg tablet,extended 500 mg PO BID diabetes 05/02/19 03/18/22 History release 24 hr glipizide 5 mg tablet 5 mg PO BID diabetes 03/19/22 03/18/22 History insulin glargine 100 unit/mL (3 10 unit subcut BID diabetes 03/19/22 03/18/22 History mL) subcutaneous pen (Lantus Solostar U-100 Insulin) ondansetron 4 mg disintegrating 4 mg PO Q8H PRN nausea and 04/26/22 Unknown Rx tablet vomiting #10 tabs dicyclomine 20 mg tablet 20 mg PO TID PRN abdominal 08/07/22 Unknown Rx cramping #20 tabs diphenoxylate-atropine 2.5 1 tab PO 4X/DAY PRN PRN diarrhea 5 10/30/22 Unknown Rx mg-0.025 mg tablet (Lomotil) days #20 tabs hydrocortisone 1 % topical cream 1 applic topical TID PRN skin 08/26/23 Unknown Rx irritation #28.4 grams ibuprofen 600 mg tablet 600 mg PO Q8H PRN PRN pain #20 08/26/23 Unknown Rx TABLETS insulin glargine 100 unit/mL 1 unit subcut QPM 09/29/23 Unknown History subcutaneous solution (Lantus U-100 Insulin) levothyroxine 100 mcg tablet 100 mcg PO DAILY 09/29/23 Unknown History magnesium citrate (Citrate of 300 ml PO DAILY PRN constipation 12/08/23 Unknown Rx Magnesia oral) #296 mL meclizine 25 mg tablet 25 mg PO TID #30 tabs 12/08/23 Unknown Rx cyclobenzaprine 10 mg tablet 10 mg PO TID PRN Muscle Spasm #15 08/10/24 Unknown Rx TABLETS polyethylene glycol 3350 17 17 g PO DAILY PRN constipation 10/19/24 Unknown History gram/dose oral powder (Miralax) Allergy/AdvReac Type Severity Reaction Status Date / Time diphenhydramine HCl (From Allergy Rash Verified 10/19/24 03:57 Benadryl) Penicillins Allergy Rash Verified 10/19/24 03:57 venom-honey bee (bee venom Allergy Swelling Verified 10/19/24 03:57 (honey bee)) Surgical History Hx of left knee surgery Hx of inguinal herniorrhaphy History of coronary artery stent placement Social History household members: none Smoking Status: Never smoker substance use type: does not use ROS ROS ED Constitutional Constitutional ED: Denies chills or fever(s) Eyes Eyes: Denies change in vision or diplopia ENT ENT ED: Denies rhinorrhea or sore throat Cardiovascular Cardiovascular: Denies chest pain or palpitations Respiratory/Chest Respiratory/Chest: Reports cough and dyspnea on exertion Gastrointestinal Gastrointestinal: Denies abdominal pain, diarrhea, nausea or vomiting Genitourinary Genitourinary ED: Denies dysuria or hematuria Musculoskeletal Musculoskeletal: Denies neck pain Integumentary Denies abscess or rash Neurologic Neurologic: Denies headache(s), paresthesias or weakness EXAM Physical Exam Const Vital Signs: 10/19/24 03:58 10/19/24 03:58 10/19/24 04:00 Temperature 97.5 F L Temperature Source Oral Pulse Rate 74 75 77 Respiratory Rate 19 H 13 21 H Blood Pressure 163/97 H 143/85 H Blood Pressure Mean 119 102 Pulse Ox 97 Oxygen Delivery Method Room Air 10/19/24 04:15 10/19/24 04:30 10/19/24 04:48 Temperature Temperature Source Pulse Rate 73 78 Respiratory Rate 22 H 18 Blood Pressure 131/81 H 150/92 H Blood Pressure Mean 96 109 Pulse Ox Oxygen Delivery Method 10/19/24 04:52 10/19/24 05:00 10/19/24 05:15 Temperature Temperature Source Pulse Rate 77 82 71 Respiratory Rate 11 L 21 H 16 Blood Pressure 134/88 H 142/87 H Blood Pressure Mean 103 104 P (more content not included)... Normal [facility] Eosinophil percentageOrdered By: Live Ashley on 10-19-2024 Eosinophil percentage 3.0 % 0-5 [facility] Epithelial cells.squamous LM Ql (Urine sed)Ordered By: Live Ashley on 10-19-2024 Squamous epithelial cells detection in urine sediment by light microscopy 0-5 SEEN /hpf 0-5 [facility] Erythrocyte distribution wid th (RBC) [Ratio]Ordered By: Live Ashley on 10-19-2024 Erythrocyte distribution width ratio 13.2 % 11.6-14.6 [facility] Erythrocyte distribution width standard deviation 38.4 fl 35.1-43.9 [facility] Estimated glomerular filtrat ion rate (GFR) AmericanOrdered By: Live Ashley on 10-19-2024 Estimated glomerular filtration rate (GFR) 94 mL/min >60 [facility] Estimation of creatinine edinson aranceOrdered By: Live Ashley on 10-19-2024 Estimation of creatinine clearance 92.21 ml/min [facility] Glomerular filtration rate ( GFR) estimationOrdered By: Live Ashley on 10-19-2024 Glomerular filtration rate (GFR) estimation 78 mL/min >60 [facility] Glucose Ql (U)Ordered By: Dipak Ashley on 10-19-2024 Urine glucose detection 1000 mg/dl High Normal [facility] Glucose measurementOrdered B y: Live Aslhey on 10-19-2024 Glucose measurement 494 mg/dL High 74-106 [facility] Glucose measurement at bedsi deOrdered By: Live Ashley on 10-19-2024 Glucose measurement at bedside 263 mg/dL High 74-106 [facility] Hematocrit Auto (Bld) [Volum e fraction]Ordered By: Live Ashley on 10-19-2024 Automated blood hematocrit (percentage) 43.9 % 40-54 [facility] Hemoglobin measurementOrdere d By: Live Ashley on 10-19-2024 Hemoglobin measurement 15.6 g/dL 13.0-16.5 [facility] Immature granulocytes/100 WB C Auto (Bld)Ordered By: Live Ashley on 10-19-2024 Automated immature granulocyte percentage 0.300 % 0.0-0.9 [facility] L501.4020on 10-19-2024 TROPONIN-I HS < 3 Low 3.0-78.0 [facility] Comment on above: Order Comment: 'TROP ' Serial specimen #1, #2 or #3: 1 Result Comment: Oleksandr lopez Note: New Test Units and Gender Specific Reference Ranges. For more information see Policy Stat Procedure [place] High Sensitivity Troponin (TNIH) and attachments. Performed By: #### L 100.0100, L500.4050 #### [facility] [address] [place], [address] Lymphocytes Auto (Unsp spec) [#/Vol]Ordered By: Live Ashley on 10-19-2024 Absolute lymphocyte count 2.40 X10^3/uL 0.83-4.51 [facility] Lymphocytes/100 WBC Auto (Un sp spec)Ordered By: Live Ashley on 10-19-2024 Automated lymphocyte count as percentage of total leukocytes 30.0 % 19-41 [facility] MCV (RBC) [Entitic vol]Order ed By: Live Ashley on 10-19-2024 MCV (mean corpuscular volume) determination 80.0 fL 80-94 [facility] Manual differential comment Robert (Bld) [Interp]Ordered By: Live Ashley on 10-19-2024 Blood manual differential comment interpretation (narrative result) SCANNED [facility] Mean corpuscular hemoglobin (MCH) determinationOrdered By: Live Ashley on 10-19-2024 Mean corpuscular hemoglobin (MCH) determination 28.4 pg 27.0-32.0 [facility] Mean corpuscular hemoglobin concentration (MCHC) determinationOrdered By: Live Ashley on 10-19-2024 Mean corpuscular hemoglobin concentration (MCHC) determination 35.5 g/dL 32-36 [facility] Mean platelet volume determi nationOrdered By: Live Ashley on 10-19-2024 Mean platelet volume determination 10.0 fl 6.2-12.0 [facility] Monocyte percentageOrdered B y: Live Ashley on 10-19-2024 Monocyte percentage 6.6 % 0-10 [facility] Neutrophil percentageOrdered By: Live Ashley on 10-19-2024 Neutrophil percentage 59.1 % 47-70 [facility] Nucleated red blood cell per centageOrdered By: Live Ashley on 10-19-2024 Nucleated red blood cell percentage 0 % 0-5 [facility] Platelet countOrdered By: Dipak Ashley on 10-19-2024 Platelet count 150 K/mm3 150-450 [facility] Platelets LM Ql (Bld)Ordered By: Live Ashley on 10-19-2024 Platelet estimate ADEQUATE ADEQ [facility] Potassium measurementOrdered By: Live Ashley on 10-19-2024 Potassium measurement 3.7 mmol/L 3.5-5.1 [facility] RBC Auto (Bld) [#/Vol]Ordere d By: Live Ashley on 10-19-2024 Automated blood erythrocyte count 5.49 M/mm3 4.6-6.2 [facility] RBC morphology finding Nom ( Bld)Ordered By: Live Ashley on 10-19-2024 Erythrocyte morphology assessment NORM C+C NORMAL NORM C&C [facility] Serum anion gap measurementO rdered By: Live Ashley on 10-19-2024 Serum anion gap measurement 5 5-15 [facility] Sodium levelOrdered By: Stevan Ashley on 10-19-2024 Sodium level 130 mmol/L Low 136-145 [facility] Specific gravity (U) [Rel de nsity]Ordered By: Live Ashley on 10-19-2024 Urine specific gravity measurement 1.010 1.002-1.030 [facility] Troponin IOrdered By: Srinivasa Ashley on 10-19-2024 Troponin I < 3 pg/mL Low 3.0-78.0 [facility] Urea nitrogen [Mass/Vol]Orde red By: Live Ashley on 10-19-2024 Serum or plasma urea nitrogen measurement (mass/volume) 15 mg/dL 7-18 [facility] Urinalysis, Completeon 10-19 EPI,SQUAMOUS 0-5 SEEN Normal 0-5 [facility] Comment on above: Order Comment: CLEAN CATCH Performed By: #### L 400.0001 ####[facility] [address] [place], [address] BACTERIA 0 SEEN Normal None Seen [facility] Comment on above: Order Comment: CLEAN CATCH Performed By: #### L 400.0001 ####[facility] [address] [place], [address] Mucus Ql (Urine sed) 0 SEEN Normal [facility] Comment on above: Order Comment: CLEAN CATCH Performed By: #### L 400.0001 ####[facility] [address] [place], [address] RBC 0 SEEN Normal 0-5 [facility] Comment on above: Order Comment: CLEAN CATCH Performed By: #### L 400.0001 ####[facility] [address] [place], [address] WBC 0 SEEN Normal 0-5 [facility] Comment on above: Order Comment: CLEAN CATCH Performed By: #### L 400.0001 ####[facility] [address] [place], [address] Urine total bilirubin detect ion by test stripOrdered By: Live Ashley on 10-19-2024 Urine total bilirubin detection by test strip Negative Negative [facility] Urobilinogen Ql (U)Ordered B y: Live Ashley on 10-19-2024 Urine urobilinogen measurement Normal mg/dl Normal [facility] White blood cell (WBC) count Ordered By: Live Ashley on 10-19-2024 White blood cell (WBC) count 8.0 K/mm3 4.4-11.0 [facility] White blood cell countOrdere d By: Live Ashley on 10-19-2024 White blood cell count 0 SEEN /hpf [facility] pH (U)Ordered By: Live can on 10-19-2024 Urine pH 6.5 5.0 - 8.0 [facility] Emergency Department Summary on 08-10-2024 Emergency Department Summary [facility] Medical Records Department [address] [place] [address] Emergency Department Summary 08/10/24 MR#: [id number] Acct: [id number] Name: JERALD YODER Rep #: [id number] : 1960 64 From: Adam Allen DO PCP: Dr. Linden Chavez DO Status:DEP ER Location: ED HPI History of Present Illness Chief Complaint: Lower Extremity Injury Informant: patient Narrative Narrative: 64-year-old male presenting to the emergency room with chief complaint of back pain. Patient states that he was sitting watching TV tonight when he developed pain in his low back that radiated into his legs. He states he has had this before and his doctor has wrote him for muscle relaxants but he does not have any left. The patient is a very poor historian. He sits with his body turned away from me arms crossed and eyes closed and answers very minimally to any questions. Patient notes a history of diabetes from what I can see on his prior blood sugars poorly controlled. He states that nobody has ever done anything to look at his back. I see that he had a CT scan of his lumbar spine earlier this year that showed moderate to severe spinal stenosis due to disc disease of the lumbar spine. He states that he has never had an MRI and he is never visited with spine surgery or pain management. He states he walks with a cane because his knees hurt and sometimes give out. He denies any bowel or bladder dysfunction. He denies any fever. He notes a rash on his low back and when I asked him about it he states that it is that rash they take a cream for it. He states that the other bumps are mosquito bites. He denies any recent trauma. 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 Esophageal candidiasis Current use of insulin Back pain due to injury Restless legs Injury of head and neck COPD (chronic obstructive pulmonary disease) High cholesterol History of stress test Depression Chronic pain Non-smoker Sleep apnea Diabetes Hyperlipidemia Hypertension Myocardial infarct Home Medications ???Medication ???Instructions ???Recorded ???Last Taken ???Type metformin 500 mg tablet,extended 500 mg PO BID diabetes 05/02/19 03/18/22 History release 24 hr glipizide 5 mg tablet 5 mg PO BID diabetes 03/19/22 03/18/22 History insulin glargine 100 unit/mL (3 10 unit subcut BID diabetes 03/19/22 03/18/22 History mL) subcutaneous pen (Lantus Solostar U-100 Insulin) ondansetron 4 mg disintegrating 4 mg PO Q8H PRN nausea and 04/26/22 Unknown Rx tablet vomiting #10 tabs dicyclomine 20 mg tablet 20 mg PO TID PRN abdominal 08/07/22 Unknown Rx cramping #20 tabs diphenoxylate-atropine 2.5 1 tab PO 4X/DAY PRN PRN diarrhea 5 10/30/22 Unknown Rx mg-0.025 mg tablet (Lomotil) days #20 tabs hydrocortisone 1 % topical cream 1 applic topical TID PRN skin 08/26/23 Unknown Rx irritation #28.4 grams ibuprofen 600 mg tablet 600 mg PO Q8H PRN PRN pain #20 08/26/23 Unknown Rx TABLETS insulin glargine 100 unit/mL 1 unit subcut QPM 09/29/23 Unknown History subcutaneous solution (Lantus U-100 Insulin) levothyroxine 100 mcg tablet 100 mcg PO DAILY 09/29/23 Unknown History magnesium citrate (Citrate of 300 ml PO DAILY PRN constipation 12/08/23 Unknown Rx Magnesia oral) #296 mL meclizine 25 mg tablet 25 mg PO TID #30 tabs 12/08/23 Unknown Rx polyethylene glycol 3350 17 17 g PO DAILY #510 grams 03/08/24 Unknown Rx gram/dose oral powder (Miralax) cyclobenzaprine 10 mg tablet 10 mg PO TID PRN Muscle Spasm #15 08/10/24 Unknown Rx TABLETS oxycodone-acetaminophen 5 mg-325 1 tab PO Q6H PRN PRN Pain 3 days 08/10/24 Unknown Rx mg tablet #12 TABLETS Allergy/AdvReac Type Severity Reaction Status Date / Time diphenhydramine HCl (From Allergy Rash Verified 08/10/24 03:31 Benadryl) Penicillins Allergy Rash Verified 08/10/24 03:31 venom-honey bee (bee venom Allergy Swelling Verified 08/10/24 03:31 (honey bee)) Surgical History Hx of left knee surgery Hx of inguinal herniorrhaphy History of coronary artery stent placement Social History household members: none Smoking Status: Never smoker substance use type: does not use ROS ROS ED Constitutional Constitutional ED: Denies chills, fever(s) or weight loss Eyes Eyes: Denies change in vision or diplopia ENT ENT ED: Denies ear pain, rhinorrhea or sore throat Cardiovascular Cardiovascular: Denies chest pain, orthopnea, palpitations or racing heartbeat Respiratory/Chest Respiratory/Chest: Denies cough, dyspnea or orthopnea Gastrointestinal Gastrointestinal: Denies abdominal pain, diarrh (more content not included)... Normal [facility] Bedside Glucoseon 05-28-2024 FINGERSTICK GLU 402 mg/dL High 74-106 [facility] Comment on above: Result Comment: TAYLOR SEALS OF PATIENT CARE PER NURSING PROTOCOL Performed By: #### L 501.080 #### [facility] [address] [place], [address] Acetone Serumon 05-27-2024 ACETONE SERUM Negative Normal NEG [facility] Comment on above: Performed By: #### L 501.080 #### [facility] [address] [place], [address] Basic Metabolic Profile (BMP )on 05-27-2024 BUN/CRE 15.5 RATIO Normal 10-20 [facility] Comment on above: Performed By: #### L 501.080 #### [facility] [address] [place], [address] CA,Total 9.1 mg/dL Normal 8.5-10.1 [facility] Comment on above: Performed By: #### L 501.080 #### [facility] [address] [place], [address] Chloride [Moles/Vol] 98 mmol/L Normal 98-107 [facility] Comment on above: Performed By: #### L 501.080 #### [facility] [address] [place], [address] CO2 [Moles/Vol] 30.0 mmol/L Normal 21.0-32.0 [facility] Comment on above: Performed By: #### L 501.080 #### [facility] [address] [place], [address] Creatinine [Mass/Vol] 1.03 mg/dL Normal 0.70-1.30 [facility] Comment on above: Result Comment: The validity of the calculated GFR GFRAA in patients over 70 years has not been determined. Clinical correlation is essential. Performed By: #### L 501.080 #### [facility] [address] [place], [address] ECRCL 91.31 ml/min Normal [facility] Comment on above: Performed By: #### L 501.080 #### [facility] [address] [place], [address] EST GFR - AA 94 mL/min Normal >60 [facility] Comment on above: Result Comment: Afri can Taiwanese GFR Calc Performed By: #### L 501.080 #### [facility] [address] [place], [address] GAP 7 Normal 5-15 [facility] Comment on above: Performed By: #### L 501.080 #### [facility] [address] [place], [address] GFR/1.73 sq M.predicted among non-blacks MDRD (S/P/Bld) [Vol rate/Area] 77 mL/min/{1.73_m2} Normal >60 [facility] Comment on above: Result Comment: Non- GFR Calc Performed By: #### L 501.080 #### [facility] [address] [place], [address] Glucose [Mass/Vol] 534 mg/dL Invalid Interpretation Code 74- [facility] Comment on above: Result Comment: Crit ical Result(s) Called at: 23:11:42 05/27/2024 by: Carla Townsend. Results read back by same. Glucose result greater than or equal to 200 mg/dL suggests DIABETES MELLITUS per A.D.A. criteria. Performed By: #### L 501.080 #### [facility] [address] [place], [address] Potassium [Moles/Vol] 4.1 mmol/L Normal 3.5-5.1 [facility] Comment on above: Result Comment: Mode rate Hemolysis, Result may be falsely increased. Performed By: #### L 501.080 #### [facility] [address] [place], [address] Sodium [Moles/Vol] 135 mmol/L Low 136-145 [facility] Comment on above: Performed By: #### L 501.080 #### [facility] [address] [place], [address] Urea nitrogen [Mass/Vol] 16 mg/dL Normal 7-18 [facility] Comment on above: Performed By: #### L 501.080 #### [facility] [address] [place], [address] Bedside Glucoseon 05-27-2024 FINGERSTICK GLU > 500 Invalid Interpretation Code 106 [facility] Comment on above: Result Comment: TAYLOR SEALS OF PATIENT CARE PER NURSING PROTOCOL Performed By: #### L 501.080 #### [facility] [address] [place], [address] FINGERSTICK GLU 478 mg/dL Invalid Interpretation Code - [facility] Comment on above: Result Comment: Dr Susan marie Followed MANAGEMENT OF PATIENT CARE PER NURSING PROTOCOL Performed By: #### L 100.0100, L500.4050 #### [facility] [address] [place], [address] CBC W/Diff, Automatedon 07-2 Absolute Lymph 1.51 X10 3/uL Normal 0.83-4.51 [facility] Comment on above: Performed By: #### L 500.2500, L501.2450, L100.0100, L500.3400, L501.6900 ####[facility] [address] [place], [address] Absolute Neut 3.8 X10 3/uL Normal 2.0-7.7 [facility] Comment on above: Performed By: #### L 500.2500, L501.2450, L100.0100, L500.3400, L501.6900 ####[facility] [address] [place], [address] Basophils/100 WBC (Bld) 0.7 % Normal 0-1 [facility] Comment on above: Performed By: #### L 500.2500, L501.2450, L100.0100, L500.3400, L501.6900 ####[facility] [address] [place], [address] Eosinophils/100 WBC (Bld) 2.4 % Normal 0-5 [facility] Comment on above: Performed By: #### L 500.2500, L501.2450, L100.0100, L500.3400, L501.6900 ####[facility] [address] [place], [address] Erythrocyte distribution width (RBC) [Ratio] 13.4 % Normal 11.6-14.6 [facility] Comment on above: Performed By: #### L 500.2500, L501.2450, L100.0100, L500.3400, L501.6900 ####[facility] [address] [place], [address] Hematocrit (Bld) [Volume fraction] 40.4 % Normal 40-54 [facility] Comment on above: Performed By: #### L 500.2500, L501.2450, L100.0100, L500.3400, L501.6900 ####[facility] [address] [place], [address] Hemoglobin (Bld) [Mass/Vol] 14.3 g/dL Normal 13.0-16.5 [facility] Comment on above: Performed By: #### L 500.2500, L501.2450, L100.0100, L500.3400, L501.6900 ####[facility] [address] [place], [address] IG% 0.200 Normal 0.0-0.9 [facility] Comment on above: Result Comment: IG% - Immature Granulocytes (promyelocytes, myelocytes and metamyelocytes) > 1% indicates that a LEFT SHIFT is Present. Performed By: #### L 500.2500, L501.2450, L100.0100, L500.3400, L501.6900 ####[facility] [address] [place], [address] Lymphocytes/100 WBC (Bld) 25.9 % Normal 19-41 [facility] Comment on above: Performed By: #### L 500.2500, L501.2450, L100.0100, L500.3400, L501.6900 ####[facility] [address] [place], [address] MCH (RBC) [Entitic mass] 29.1 pg Normal 27.0-32.0 [facility] Comment on above: Performed By: #### L 500.2500, L501.2450, L100.0100, L500.3400, L501.6900 ####[facility] [address] [place], [address] MCHC (RBC) [Mass/Vol] 35.4 g/dL Normal 32-36 [facility] Comment on above: Performed By: #### L 500.2500, L501.2450, L100.0100, L500.3400, L501.6900 ####[facility] [address] [place], [address] MCV (RBC) [Entitic vol] 82.3 fL Normal 80-94 [facility] Comment on above: Performed By: #### L 500.2500, L501.2450, L100.0100, L500.3400, L501.6900 ####[facility] [address] [place], [address] Monocytes/100 WBC (Bld) 6.3 % Normal 0-10 [facility] Comment on above: Performed By: #### L 500.2500, L501.2450, L100.0100, L500.3400, L501.6900 ####[facility] [address] [place], [address] Neutrophils/100 WBC (Bld) 64.5 % Normal 47-70 [facility] Comment on above: Performed By: #### L 500.2500, L501.2450, L100.0100, L500.3400, L501.6900 ####[facility] [address] [place], [address] Nucleated RBC (Bld) [#/Vol] 0 10*3/uL Normal 0-5 [facility] Comment on above: Performed By: #### L 500.2500, L501.2450, L100.0100, L500.3400, L501.6900 ####[facility] [address] [place], [address] Platelet mean volume (Bld) [Entitic vol] 9.5 fL Normal 6.2-12.0 [facility] Comment on above: Performed By: #### L 500.2500, L501.2450, L100.0100, L500.3400, L501.6900 ####[facility] [address] [place], [address] Platelets (Bld) [#/Vol] 204 10*3/uL Normal 150-450 [facility] Comment on above: Performed By: #### L 500.2500, L501.2450, L100.0100, L500.3400, L501.6900 ####[facility] [address] [place], [address] RBC (Bld) [#/Vol] 4.91 10*6/uL Normal 4.6-6.2 [facility] Comment on above: Performed By: #### L 500.2500, L501.2450, L100.0100, L500.3400, L501.6900 ####[facility] [address] [place], [address] RDW SD 39.8 fl Normal 35.1-43.9 [facility] Comment on above: Performed By: #### L 500.2500, L501.2450, L100.0100, L500.3400, L501.6900 ####[facility] [address] [place], [address] WBC (Bld) [#/Vol] 5.8 10*3/uL Normal 4.4-11.0 [facility] Healthcare Comment on above: Performed By: #### L 500.2500, L501.2450, L100.0100, L500.3400, L501.6900 ####[facility] [address] [place], [address] Emergency Department Summary on 05-27-2024 Emergency Department Summary [facility] Medical Records Department [address] [place] [address] Emergency Department Summary 05/27/24 MR#: [id number] Acct: [id number] Name: JERALD YODER Rep #: [id number] : 1960 64 From: Johann Lemons DO PCP: Dr. Linden Chavez DO Status:REG ER Location: ED HPI History of Present Illness Chief Complaint: Hyperglycemia Informant: patient Narrative Narrative: Patient is a 64-year-old male with past medical history of hypertension hyperlipidemia insulin- dependent diabetes and COPD. He states that he believes his blood sugar is high because he does not feel well. He also states that he has means to test his blood sugar at home but just does not want to. He cannot provide any other history or symptomatology such as fevers or chills abdominal pain nausea vomiting diarrhea dysuria cough or shortness of breath but simply states that he does just not feel well. Secondary to this he presents to the hospital for evaluation 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 Esophageal candidiasis Current use of insulin Back pain due to injury Restless legs Injury of head and neck COPD (chronic obstructive pulmonary disease) High cholesterol History of stress test Depression Chronic pain Non-smoker Sleep apnea Diabetes Hyperlipidemia Hypertension Myocardial infarct Home Medications ???Medication ???Instructions ???Recorded ???Last Taken ???Type metformin 500 mg tablet,extended 500 mg PO BID diabetes 05/02/19 03/18/22 History release 24 hr fluconazole 200 mg tablet 200 mg PO DAILY antibiotic 03/19/22 03/18/22 History (Diflucan) glipizide 5 mg tablet 5 mg PO BID diabetes 03/19/22 03/18/22 History insulin glargine 100 unit/mL (3 10 unit subcut BID diabetes 03/19/22 03/18/22 History mL) subcutaneous pen (Lantus Solostar U-100 Insulin) ondansetron 4 mg disintegrating 4 mg PO Q8H PRN nausea and 04/26/22 Unknown Rx tablet vomiting #10 tabs dicyclomine 20 mg tablet 20 mg PO TID PRN abdominal 08/07/22 Unknown Rx cramping #20 tabs diphenoxylate-atropine 2.5 1 tab PO 4X/DAY PRN PRN diarrhea 5 10/30/22 Unknown Rx mg-0.025 mg tablet (Lomotil) days #20 tabs cyclobenzaprine 10 mg tablet 10 mg PO TID PRN Muscle Spasm #20 08/26/23 Unknown Rx TABLETS hydrocortisone 1 % topical cream 1 applic topical TID PRN skin 08/26/23 Unknown Rx irritation #28.4 grams ibuprofen 600 mg tablet 600 mg PO Q8H PRN PRN pain #20 08/26/23 Unknown Rx TABLETS insulin glargine 100 unit/mL 1 unit subcut QPM 09/29/23 Unknown History subcutaneous solution (Lantus U-100 Insulin) levothyroxine 100 mcg tablet 100 mcg PO DAILY 09/29/23 Unknown History magnesium citrate (Citrate of 300 ml PO DAILY PRN constipation 12/08/23 Unknown Rx Magnesia oral) #296 mL meclizine 25 mg tablet 25 mg PO TID #30 tabs 12/08/23 Unknown Rx polyethylene glycol 3350 17 17 g PO DAILY #510 grams 03/08/24 Unknown Rx gram/dose oral powder (Miralax) dicyclomine 20 mg tablet 20 mg PO TID PRN abd pain #14 tabs 05/18/24 Unknown Rx ondansetron 4 mg disintegrating 4 mg PO Q8H PRN PRN Nausea #10 tabs 05/18/24 Unknown Rx tablet Allergy/AdvReac Type Severity Reaction Status Date / Time diphenhydramine HCl (From Allergy Rash Verified 05/27/24 21:46 Benadryl) Penicillins Allergy Rash Verified 05/27/24 21:46 venom-honey bee (bee venom Allergy Swelling Verified 05/27/24 21:46 (honey bee)) Surgical History Hx of left knee surgery Hx of inguinal herniorrhaphy History of coronary artery stent placement Social History household members: none Smoking Status: Never smoker substance use type: does not use ROS ROS ED Constitutional Constitutional ED: Denies chills or fever(s) Eyes Eyes: Denies blurry vision or change in vision ENT ENT ED: Denies rhinorrhea or sore throat Cardiovascular Cardiovascular: Denies chest pain or palpitations Respiratory/Chest Respiratory/Chest: Denies cough or dyspnea Gastrointestinal Gastrointestinal: Denies abdominal pain, diarrhea, nausea or vomiting Genitourinary Genitourinary ED: Denies dysuria or hematuria Musculoskeletal Musculoskeletal: Denies myalgias Integumentary Denies rash Neurologic Neurologic: Denies headache(s) Hematologic/Lymphatic Hematologic/Lymphatic: Denies easy bleeding or easy bruising EXAM Physical Exam Const Vital Signs: 05/27/24 21:46 05/27/24 22:13 05/28/24 00:30 Temperature 96.7 F L Temperature Source Temporal Pulse Rate 69 73 Respiratory Rate 16 18 Respiratory Effort Normal Non-Labored Respiratory Pat (more content not included)... Normal [facility] Lipaseon 05-27-2024 Lipase [Catalytic activity/Vol] 15 U/L Normal 13-75 [facility] Comment on above: Result Comment: Oleksandr lopez note: LIPASE revised reference range effective 23. New Lipase methodology. Expected to produce lower values than the previous assay method. NEW Reference Range: 13 - 75 U/L Performed By: #### L 501.080 #### [facility] [address] [place], [address] Liver Profileon 05-27-2024 Albumin [Mass/Vol] 3.3 g/dL Normal 3.2-5.0 [facility] Comment on above: Performed By: #### L 501.080 #### [facility] [address] [place], [address] ALK P 77 U/L Normal 45-117 [facility] Comment on above: Performed By: #### L 501.080 #### [facility] [address] [place], [address] ALT [Catalytic activity/Vol] 23 U/L Normal 16-61 [facility] Comment on above: Performed By: #### L 501.080 #### [facility] [address] [place], [address] AST [Catalytic activity/Vol] 27 U/L Normal 15-37 [facility] Comment on above: Result Comment: Mode rate Hemolysis, Result may be falsely increased. Performed By: #### L 501.080 #### [facility] [address] [place], [address] Bilirubin [Mass/Vol] 0.50 mg/dL Normal 0.20-1.00 [facility] Comment on above: Result Comment: For patients on eltrombopag therapy, use of Dimension [place] TBIL is not recommended. Performed By: #### L 501.080 #### [facility] [address] [place], [address] Bilirubin.direct [Mass/Vol] 0.07 mg/dL Normal 0.00-0.30 [facility] Comment on above: Performed By: #### L 501.080 #### [facility] [address] [place], [address] Globulin (S) [Mass/Vol] 3.5 g/dL Normal 2.2-4.2 [facility] Comment on above: Performed By: #### L 501.080 #### [facility] [address] [place], [address] T PROT 6.8 g/dL Normal 6.4-8.2 [facility] Comment on above: Performed By: #### L 501.080 #### [facility] [address] [place], [address] Urinalysis, Completeon 05-27 EPI,SQUAMOUS 0-5 SEEN Normal 0-5 [facility] Comment on above: Order Comment: COLLE CTOR TO SPECIFY Performed By: #### L 400.0001 ####[facility] [address] [place], [address] BACTERIA 0 SEEN Normal None Seen [facility] Comment on above: Order Comment: COLLE CTOR TO SPECIFY Performed By: #### L 400.0001 ####[facility] [address] [place], [address] Mucus Ql (Urine sed) 0 SEEN Normal [facility] Comment on above: Order Comment: NO CTOR TO SPECIFY Performed By: #### L 400.0001 ####[facility] [address] [place], [address] RBC 0 SEEN Normal 0-5 [facility] Comment on above: Order Comment: NO CTOR TO SPECIFY Performed By: #### L 400.0001 ####[facility] [address] [place], [address] WBC 0 SEEN Normal 0-5 [facility] Comment on above: Order Comment: NO CTOR TO SPECIFY Performed By: #### L 400.0001 ####[facility] [address] [place], [address] CBC W/Diff, Automatedon 07- Absolute Lymph 1.34 X10 3/uL Normal 0.83-4.51 [facility] Comment on above: Performed By: #### L 100.0100, L500.4050 #### [facility] [address] [place], [address] Absolute Neut 4.7 X10 3/uL Normal 2.0-7.7 [facility] Comment on above: Performed By: #### L 100.0100, L500.4050 #### [facility] [address] [place], [address] Basophils/100 WBC (Bld) 0.6 % Normal 0-1 [facility] Comment on above: Performed By: #### L 100.0100, L500.4050 #### [facility] [address] [place], [address] Eosinophils/100 WBC (Bld) 2.4 % Normal 0-5 [facility] Comment on above: Performed By: #### L 100.0100, L500.4050 #### [facility] [address] [place], [address] Erythrocyte distribution width (RBC) [Ratio] 13.2 % Normal 11.6-14.6 [facility] Comment on above: Performed By: #### L 100.0100, L500.4050 #### [facility] [address] [place], [address] Hematocrit (Bld) [Volume fraction] 40.4 % Normal 40-54 [facility] Comment on above: Performed By: #### L 100.0100, L500.4050 #### [facility] [address] [place], [address] Hemoglobin (Bld) [Mass/Vol] 14.1 g/dL Normal 13.0-16.5 [facility] Comment on above: Performed By: #### L 100.0100, L500.4050 #### [facility] [address] [place], [address] IG% 0.300 Normal 0.0-0.9 [facility] Comment on above: Result Comment: IG% - Immature Granulocytes (promyelocytes, myelocytes and metamyelocytes) > 1% indicates that a LEFT SHIFT is Present. Performed By: #### L 100.0100, L500.4050 #### [facility] [address] [place], [address] Lymphocytes/100 WBC (Bld) 19.7 % Normal 19-41 [facility] Comment on above: Performed By: #### L 100.0100, L500.4050 #### [facility] [address] [place], [address] MCH (RBC) [Entitic mass] 28.5 pg Normal 27.0-32.0 [facility] Comment on above: Performed By: #### L 100.0100, L500.4050 #### [facility] [address] [place], [address] MCHC (RBC) [Mass/Vol] 34.9 g/dL Normal 32-36 [facility] Comment on above: Performed By: #### L 100.0100, L500.4050 #### [facility] [address] [place], [address] MCV (RBC) [Entitic vol] 81.6 fL Normal 80-94 [facility] Comment on above: Performed By: #### L 100.0100, L500.4050 #### [facility] [address] [place], [address] Monocytes/100 WBC (Bld) 7.2 % Normal 0-10 [facility] Comment on above: Performed By: #### L 100.0100, L500.4050 #### [facility] [address] [place], [address] Neutrophils/100 WBC (Bld) 69.8 % Normal 47-70 [facility] Comment on above: Performed By: #### L 100.0100, L500.4050 #### [facility] [address] [place], [address] Nucleated RBC (Bld) [#/Vol] 0 10*3/uL Normal 0-5 [facility] Comment on above: Performed By: #### L 100.0100, L500.4050 #### [facility] [address] [place], [address] Platelet mean volume (Bld) [Entitic vol] 9.6 fL Normal 6.2-12.0 [facility] Comment on above: Performed By: #### L 100.0100, L500.4050 #### [facility] [address] [place], [address] Platelets (Bld) [#/Vol] 186 10*3/uL Normal 150-450 [facility] Comment on above: Performed By: #### L 100.0100, L500.4050 #### [facility] [address] [place], [address] RBC (Bld) [#/Vol] 4.95 10*6/uL Normal 4.6-6.2 [facility] Comment on above: Performed By: #### L 100.0100, L500.4050 #### [facility] [address] [place], [address] RDW SD 38.5 fl Normal 35.1-43.9 [facility] Comment on above: Performed By: #### L 100.0100, L500.4050 #### [facility] [address] [place], [address] WBC (Bld) [#/Vol] 6.8 10*3/uL Normal 4.4-11.0 [facility] Comment on above: Performed By: #### L 100.0100, L500.4050 #### [facility] [address] [place], [address] Comprehensive Metabolic [facility] 05-18-2024 Albumin [Mass/Vol] 3.5 g/dL Normal 3.2-5.0 [facility] Comment on above: Performed By: #### L 100.0100, L500.4050 #### [facility] [address] [place], [address] Albumin/Globulin [Mass ratio] 1.0 {ratio} Normal 0.9-2.4 [facility] Comment on above: Performed By: #### L 100.0100, L500.4050 #### [facility] [address] [place], [address] ALK P 81 U/L Normal 45-117 [facility] Comment on above: Performed By: #### L 100.0100, L500.4050 #### [facility] [address] [place], [address] ALT [Catalytic activity/Vol] 18 U/L Normal 16-61 [facility] Comment on above: Performed By: #### L 100.0100, L500.4050 #### [facility] [address] [place], [address] AST [Catalytic activity/Vol] 11 U/L Low 15-37 [facility] Comment on above: Performed By: #### L 100.0100, L500.4050 #### [facility] [address] [place], [address] Bilirubin [Mass/Vol] 0.60 mg/dL Normal 0.20-1.00 [facility] Comment on above: Result Comment: For patients on eltrombopag therapy, use of Dimension [place] TBIL is not recommended. Performed By: #### L 100.0100, L500.4050 #### [facility] [address] [place], [address] BUN/CRE 19.6 RATIO Normal 10-20 [facility] Comment on above: Performed By: #### L 100.0100, L500.4050 #### [facility] [address] [place], [address] CA,Total 9.0 mg/dL Normal 8.5-10.1 [facility] Comment on above: Performed By: #### L 100.0100, L500.4050 #### [facility] [address] [place], [address] Chloride [Moles/Vol] 98 mmol/L Normal 98-107 [facility] Comment on above: Performed By: #### L 100.0100, L500.4050 #### [facility] [address] [place], [address] CO2 [Moles/Vol] 28.0 mmol/L Normal 21.0-32.0 [facility] Comment on above: Performed By: #### L 100.0100, L500.4050 #### [facility] [address] [place], [address] Creatinine [Mass/Vol] 1.07 mg/dL Normal 0.70-1.30 [facility] Comment on above: Result Comment: The validity of the calculated GFR GFRAA in patients over 70 years has not been determined. Clinical correlation is essential. Performed By: #### L 100.0100, L500.4050 #### [facility] [address] [place], [address] ECRCL 87.90 ml/min Normal [facility] Comment on above: Performed By: #### L 100.0100, L500.4050 #### [facility] [address] [place], [address] EST GFR - AA 89 mL/min Normal >60 [facility] Comment on above: Result Comment: Afri can Taiwanese GFR Calc Performed By: #### L 100.0100, L500.4050 #### [facility] [address] [place], [address] GAP 8 Normal 5-15 [facility] Comment on above: Performed By: #### L 100.0100, L500.4050 #### [facility] [address] [place], [address] GFR/1.73 sq M.predicted among non-blacks MDRD (S/P/Bld) [Vol rate/Area] 74 mL/min/{1.73_m2} Normal >60 [facility] Comment on above: Result Comment: Non- GFR Calc Performed By: #### L 100.0100, L500.4050 #### [facility] [address] [place], [address] Globulin (S) [Mass/Vol] 3.4 g/dL Normal 2.2-4.2 [facility] Comment on above: Performed By: #### L 100.0100, L500.4050 #### [facility] [address] [place], [address] Glucose [Mass/Vol] 448 mg/dL High 74-106 [facility] Comment on above: Result Comment: Gluc ose result greater than or equal to 200 mg/dL suggests DIABETES MELLITUS per A.D.A. criteria. Performed By: #### L 100.0100, L500.4050 #### [facility] [address] [place], [address] Potassium [Moles/Vol] 4.1 mmol/L Normal 3.5-5.1 [facility] Comment on above: Performed By: #### L 100.0100, L500.4050 #### [facility] [address] [place], [address] Sodium [Moles/Vol] 134 mmol/L Low 136-145 [facility] Comment on above: Performed By: #### L 100.0100, L500.4050 #### [facility] [address] [place], [address] T PROT 6.9 g/dL Normal 6.4-8.2 [facility] Comment on above: Performed By: #### L 100.0100, L500.4050 #### [facility] [address] [place], [address] Urea nitrogen [Mass/Vol] 21 mg/dL High 7-18 [facility] Comment on above: Performed By: #### L 100.0100, L500.4050 #### [facility] [address] [place], [address] Emergency Department Summary on 05-18-2024 Emergency Department Summary [facility] Medical Records Department [address] [place] [address] Emergency Department Summary 05/18/24 MR#: [id number] Acct: [id number] Name: JERALD YODER Rep #: [id number] : 1960 64 From: Shania Disla MD PCP: Dr. Linden Chavez, DO Status:DEP ER Location: ED HPI History of Present Illness Chief Complaint: Nausea/Vomiting/Diarrhe a Informant: patient Onset/Context/Timing Onset: Today Narrative Narrative: Patient states he woke this morning feeling nauseated and having diarrhea. No fever or chills. He does have some recent visits for constipation and states that he has been using Pepto-Bismol as well as Imodium intermittently. 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 Esophageal candidiasis Current use of insulin Back pain due to injury Restless legs Injury of head and neck COPD (chronic obstructive pulmonary disease) High cholesterol History of stress test Depression Chronic pain Non-smoker Sleep apnea Diabetes Hyperlipidemia Hypertension Myocardial infarct Home Medications ???Medication ???Instructions ???Recorded ???Last Taken ???Type metformin 500 mg tablet,extended 500 mg PO BID diabetes 05/02/19 03/18/22 History release 24 hr fluconazole 200 mg tablet 200 mg PO DAILY antibiotic 03/19/22 03/18/22 History (Diflucan) glipizide 5 mg tablet 5 mg PO BID diabetes 03/19/22 03/18/22 History insulin glargine 100 unit/mL (3 10 unit subcut BID diabetes 03/19/22 03/18/22 History mL) subcutaneous pen (Lantus Solostar U-100 Insulin) ondansetron 4 mg disintegrating 4 mg PO Q8H PRN nausea and 04/26/22 Unknown Rx tablet vomiting #10 tabs dicyclomine 20 mg tablet 20 mg PO TID PRN abdominal 08/07/22 Unknown Rx cramping #20 tabs diphenoxylate-atropine 2.5 1 tab PO 4X/DAY PRN PRN diarrhea 5 10/30/22 Unknown Rx mg-0.025 mg tablet (Lomotil) days #20 tabs cyclobenzaprine 10 mg tablet 10 mg PO TID PRN Muscle Spasm #20 08/26/23 Unknown Rx TABLETS hydrocortisone 1 % topical cream 1 applic topical TID PRN skin 08/26/23 Unknown Rx irritation #28.4 grams ibuprofen 600 mg tablet 600 mg PO Q8H PRN PRN pain #20 08/26/23 Unknown Rx TABLETS insulin glargine 100 unit/mL 1 unit subcut QPM 09/29/23 Unknown History subcutaneous solution (Lantus U-100 Insulin) levothyroxine 100 mcg tablet 100 mcg PO DAILY 09/29/23 Unknown History magnesium citrate (Citrate of 300 ml PO DAILY PRN constipation 12/08/23 Unknown Rx Magnesia oral) #296 mL meclizine 25 mg tablet 25 mg PO TID #30 tabs 12/08/23 Unknown Rx polyethylene glycol 3350 17 17 g PO DAILY #510 grams 03/08/24 Unknown Rx gram/dose oral powder (Miralax) dicyclomine 20 mg tablet 20 mg PO TID PRN abd pain #14 tabs 05/18/24 Unknown Rx ondansetron 4 mg disintegrating 4 mg PO Q8H PRN PRN Nausea #10 tabs 05/18/24 Unknown Rx tablet Allergy/AdvReac Type Severity Reaction Status Date / Time diphenhydramine HCl (From Allergy Rash Verified 05/18/24 07:32 Benadryl) Penicillins Allergy Rash Verified 05/18/24 07:32 venom-honey bee (bee venom Allergy Swelling Verified 05/18/24 07:32 (honey bee)) Surgical History Hx of left knee surgery Hx of inguinal herniorrhaphy History of coronary artery stent placement Social History household members: none Smoking Status: Never smoker substance use type: does not use ROS ROS ED Constitutional Constitutional ED: Denies chills or fever(s) Eyes Eyes: Denies discharge from eye(s) ENT ENT ED: Denies discharge from eye(s), rhinorrhea or sore throat Cardiovascular Cardiovascular: Denies chest pain or palpitations Respiratory/Chest Respiratory/Chest: Denies cough or dyspnea Gastrointestinal Gastrointestinal: Reports diarrhea, nausea and vomiting; Denies abdominal pain Genitourinary Genitourinary ED: Denies dysuria Musculoskeletal Musculoskeletal: Denies back pain or extremity pain Integumentary Denies Abrasions or rash Neurologic Neurologic: Denies headache(s) or weakness Allergic/Immunologic Allergic/Immunologic ED: Denies lip swelling or urticaria EXAM Physical Exam Const Vital Signs: 05/18/24 07:30 05/18/24 07:32 05/18/24 09:21 Temperature 98 F 97.9 F 97.1 F L Temperature Source Temporal Temporal Temporal Pulse Rate 69 69 78 Respiratory Rate 20 H 20 H 16 Blood Pressure 125/80 H 125/80 H 147/91 H Blood Pressure Mean 95 95 109 Pulse Ox 96 97 98 Oxygen Delivery Method Room Air Room Air Room Air 05/18/24 10:12 Temperature 97.1 F L Temperature Source Pulse Rate 73 Respiratory Rate 16 (more content not included)... Normal [facility] 05-10-2024 CN Office Visit (UCWSTR ) JERALD YODER ([id number]) 1960 M Date Time Provider Department 05/10/24 7:30 PM ROSA QUINONES [facility] During your visit today, we recorded the following information about you: Temperature Pulse Respiration Blood pressure 97.5 degrees 72/minute 20/minute 135/81 Weight 101 kg Rosa Quinones APRN.[facility] 05/11/2024 8:47 AM Signed This note was created using NoteWriter. Subjective Jerald Yoder is a 64 year old male. 64 year old male with PMH CAD, HTN, CABG, GERD, DM, thyroid presents for ear complaints. Acute onset Endorses that yesterday he noticed reduced hearing Feelings of fullness. 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 Requesting ear irrigation. The history is provided by the patient. No languages and literature instructor was used. Ear Problem There is pain in both ears. This is a new problem. The current episode started yesterday. The problem occurs constantly. The problem has been unchanged. There has been no fever. The pain is at a severity of 0/10. The patient is experiencing no pain. Associated symptoms include hearing loss. Pertinent negatives include no abdominal pain, coughing, diarrhea, ear discharge, headaches, neck pain, rash, rhinorrhea, sore throat or vomiting. He has tried nothing for the symptoms. The treatment provided no relief. There is no history of a chronic ear infection, hearing loss or a tympanostomy tube. PAST MEDICAL HISTORY Diagnosis Date Ankle dislocation Arthritis of knee Colon polyp 2013 adenomatous Coronary artery disease [place] in 1994 Diabetic neuropathy (HCC) DM (diabetes mellitus) (HCC) Femur fracture (HCC) GERD (gastroesophageal reflux disease) Heart attack (HCC) 1999 Hyperthyroidism 1993 I131 treatment... Mac. Hypothyroidism s/p I131 treatment Nasal fracture Overweight Pneumonia PAST SURGICAL HISTORY Procedure Laterality Date AMP /11/01 JT/PHALANX W/NEURECT W/DIR CLSR left index-partial COLONOSCOPY FLX DX W/COLLJ SPEC WHEN PFRMD 11/21/2013 Colonoscopy, repeat in 5 years ESOPHAGOGASTRODUODENOSC OPY TRANSORAL DIAGNOSTIC 11/21/2013 EGD ESOPHAGOGASTRODUODENOSC OPY TRANSORAL DIAGNOSTIC 12/12/13 EGD ESOPHAGOGASTRODUODENOSC OPY TRANSORAL DIAGNOSTIC 01/23/14 EGD HERNIA REPAIR HX right groin PAST SURGICAL HISTORY OF left knee procedure, as child PAST SURGICAL HISTORY OF right ankle- 7 surgeries per pt . PAST SURGICAL HISTORY OF tooth extraction PAST SURGICAL HISTORY OF heart stents x2 ALLERGIES Bee Sting, Benedryl [Diphenhydramine], and Penicillins MEDICATIONS atorvastatin (LIPITOR) 40 mg tablet Take 1 tablet by mouth once daily for 14 days. For cholesterol lisinopril (ZESTRIL, PRINIVIL) 20 mg tablet Take 1 tablet by mouth once daily. empagliflozin (JARDIANCE) 10 mg tablet Take 1 tablet by mouth once daily. Take 1 tablet once daily in the morning levothyroxine (SYNTHROID) 175 mcg tablet Take 1 tablet by mouth once daily. Take on empty stomach. For Thyroid. aspirin, enteric coated (ASPIRIN, ENTERIC COATED) 81 mg EC tablet Take 1 tablet by mouth once daily. albuterol HFA (VENTOLIN HFA) 90 mcg/actuation inhaler Inhale 2 Puffs as instructed every 4 hours as needed. gabapentin (NEURONTIN) 300 mg capsule Take 1 capsule by mouth daily at bedtime for 30 days. insulin lispro (ADMELOG SOLOSTAR U-100 INSULIN) 100 [...] for 14 days. 1/2 hr before meal. FAMILY HISTORY Problem Relation Age of Onset Emphysema Father Heart Father Breast Cancer Sister other (Bone Mets) Sister Diabetes Paternal Grandfather Social History Tobacco Use Smoking status: Never Smokeless tobacco: Former Quit date: 07/01/1978 Tobacco comments: Quit when he swallowed a wad of chew playing baseball! Vaping Use (more content not included)... Normal [facility] Acetone Serumon 05-08-2024 ACETONE SERUM Negative Normal NEG [facility] Comment on above: Performed By: #### L 100.0100, L500.4050 #### [facility] [address] [place], [address] Basic Metabolic Profile (BMP )on 05-08-2024 BUN/CRE 16.7 RATIO Normal 10-20 [facility] Comment on above: Performed By: #### L 100.0100, L500.4050 #### [facility] [address] [place], [address] CA,Total 9.4 mg/dL Normal 8.5-10.1 [facility] Comment on above: Performed By: #### L 100.0100, L500.4050 #### [facility] [address] [place], [address] Chloride [Moles/Vol] 94 mmol/L Low 98-107 [facility] Comment on above: Performed By: #### L 100.0100, L500.4050 #### [facility] [address] [place], [address] CO2 [Moles/Vol] 29.0 mmol/L Normal 21.0-32.0 [facility] Comment on above: Performed By: #### L 100.0100, L500.4050 #### [facility] [address] [place], [address] Creatinine [Mass/Vol] 1.08 mg/dL Normal 0.70-1.30 [facility] Comment on above: Result Comment: The validity of the calculated GFR GFRAA in patients over 70 years has not been determined. Clinical correlation is essential. Performed By: #### L 100.0100, L500.4050 #### [facility] [address] [place], [address] ECRCL 87.08 ml/min Normal [facility] Comment on above: Performed By: #### L 100.0100, L500.4050 #### [facility] [address] [place], [address] EST GFR - AA 89 mL/min Normal >60 [facility] Comment on above: Result Comment: Afri can Taiwanese GFR Calc Performed By: #### L 100.0100, L500.4050 #### [facility] [address] [place], [address] GAP 9 Normal 5-15 [facility] Comment on above: Performed By: #### L 100.0100, L500.4050 #### [facility] [address] [place], [address] GFR/1.73 sq M.predicted among non-blacks MDRD (S/P/Bld) [Vol rate/Area] 73 mL/min/{1.73_m2} Normal >60 [facility] Comment on above: Result Comment: Non- GFR Calc Performed By: #### L 100.0100, L500.4050 #### [facility] [address] [place], [address] Glucose [Mass/Vol] 620 mg/dL Invalid Interpretation Code 74-106 [facility] Comment on above: Result Comment: Crit ical Result(s) Called at: 01:10:08 05/08/2024 by: Carla claudio. Results read back by same. Glucose result greater than or equal to 200 mg/dL suggests DIABETES MELLITUS per A.D.A. criteria. Performed By: #### L 100.0100, L500.4050 #### [facility] [address] [place], [address] Potassium [Moles/Vol] 3.8 mmol/L Normal 3.5-5.1 [facility] Comment on above: Performed By: #### L 100.0100, L500.4050 #### [facility] [address] [place], [address] Sodium [Moles/Vol] 132 mmol/L Low 136-145 [facility] Comment on above: Performed By: #### L 100.0100, L500.4050 #### [facility] [address] [place], [address] Urea nitrogen [Mass/Vol] 18 mg/dL Normal 7-18 [facility] Comment on above: Performed By: #### L 100.0100, L500.4050 #### [facility] [address] [place], [address] Bedside Glucoseon 05-08-2024 FINGERSTICK GLU 380 mg/dL High 74-106 [facility] Comment on above: Result Comment: TAYLOR SEALS OF PATIENT CARE PER NURSING PROTOCOL Performed By: #### L 501.080 #### [facility] [address] [place], [address] CBC W/Diff, Automatedon 07-0 Absolute Lymph 1.44 X10 3/uL Normal 0.83-4.51 [facility] Comment on above: Performed By: #### L 100.0100, L500.4050 #### [facility] [address] [place], [address] Absolute Neut 3.7 X10 3/uL Normal 2.0-7.7 [facility] Comment on above: Performed By: #### L 100.0100, L500.4050 #### [facility] [address] [place], [address] Basophils/100 WBC (Bld) 0.7 % Normal 0-1 [facility] Comment on above: Performed By: #### L 100.0100, L500.4050 #### [facility] [address] [place], [address] Eosinophils/100 WBC (Bld) 2.2 % Normal 0-5 [facility] Comment on above: Performed By: #### L 100.0100, L500.4050 #### [facility] [address] [place], [address] Erythrocyte distribution width (RBC) [Ratio] 12.8 % Normal 11.6-14.6 [facility] Comment on above: Performed By: #### L 100.0100, L500.4050 #### [facility] [address] [place], [address] Hematocrit (Bld) [Volume fraction] 41.7 % Normal 40-54 [facility] Comment on above: Performed By: #### L 100.0100, L500.4050 #### [facility] [address] [place], [address] Hemoglobin (Bld) [Mass/Vol] 14.4 g/dL Normal 13.0-16.5 [facility] Comment on above: Performed By: #### L 100.0100, L500.4050 #### [facility] [address] [place], [address] IG% 1.200 High 0.0-0.9 [facility] Comment on above: Result Comment: IG% - Immature Granulocytes (promyelocytes, myelocytes and metamyelocytes) > 1% indicates that a LEFT SHIFT is Present. Performed By: #### L 100.0100, L500.4050 #### [facility] [address] [place], [address] Lymphocytes/100 WBC (Bld) 24.4 % Normal 19-41 [facility] Comment on above: Performed By: #### L 100.0100, L500.4050 #### [facility] [address] [place], [address] MCH (RBC) [Entitic mass] 28.3 pg Normal 27.0-32.0 [facility] Comment on above: Performed By: #### L 100.0100, L500.4050 #### [facility] [address] [place], [address] MCHC (RBC) [Mass/Vol] 34.5 g/dL Normal 32-36 [facility] Comment on above: Performed By: #### L 100.0100, L500.4050 #### [facility] [address] [place], [address] MCV (RBC) [Entitic vol] 81.9 fL Normal 80-94 [facility] Comment on above: Performed By: #### L 100.0100, L500.4050 #### [facility] [address] [place], [address] Monocytes/100 WBC (Bld) 8.5 % Normal 0-10 [facility] Comment on above: Performed By: #### L 100.0100, L500.4050 #### [facility] [address] [place], [address] Neutrophils/100 WBC (Bld) 63.0 % Normal 47-70 [facility] Comment on above: Performed By: #### L 100.0100, L500.4050 #### [facility] [address] [place], [address] Nucleated RBC (Bld) [#/Vol] 0 10*3/uL Normal 0-5 [facility] Comment on above: Performed By: #### L 100.0100, L500.4050 #### [facility] [address] [place], [address] Platelet mean volume (Bld) [Entitic vol] 9.3 fL Normal 6.2-12.0 [facility] Comment on above: Performed By: #### L 100.0100, L500.4050 #### [facility] [address] [place], [address] Platelets (Bld) [#/Vol] 178 10*3/uL Normal 150-450 [facility] Comment on above: Performed By: #### L 100.0100, L500.4050 #### [facility] [address] [place], [address] RBC (Bld) [#/Vol] 5.09 10*6/uL Normal 4.6-6.2 [facility] Comment on above: Performed By: #### L 100.0100, L500.4050 #### [facility] [address] [place], [address] RDW SD 38.2 fl Normal 35.1-43.9 [facility] Comment on above: Performed By: #### L 100.0100, L500.4050 #### [facility] [address] [place], [address] WBC (Bld) [#/Vol] 5.9 10*3/uL Normal 4.4-11.0 [facility] Comment on above: Performed By: #### L 100.0100, L500.4050 #### [facility] [address] [place], [address] Chest PA and Lateralon 05-08 Chest PA and Lateral [facility] Imaging Services [address] [place] [address] Chest PA and Lateral MR#: [id number] Acct: [id number] Name: JERALD YODER Rep #: [id number] : 1960 M 64 From: Fantasma Laguerre MD PCP: Dr. Linden Chavez DO Status: DEP ER Study: Chest PA and Lateral Date of Exam: 05/08/24 Exam# [id number] Ordering Dr: [place] [id number] INDICATION: WEAKNESS EXAMINATION/TECHNIQUE: X-RAY - XR Chest 2 Views COMPARISON: 03/08/2024 and 11/22/2023 chest radiograph. Findings: Frontal and lateral views of the chest. LUNG PARENCHYMA: No acute focal airspace disease. 13 mm right lung base nodular opacity again noted, stable from only 4 months prior. PLEURA: No pleural effusion. No pneumothorax. HEART/GREAT VESSELS: Cardiomediastinal silhouette is unremarkable. BONES: Osseous structures are unremarkable for age. RAD/Chest PA and Lateral IMPRESSION: 13 mm right lung base nodular opacity again noted, to include pulmonary nodule, stable from only 4 months prior. Recommend comparison with previous CT chest imaging to document long-term stability versus follow-up evaluation as per Fleischner guidelines as neoplastic process is not excluded. Chest with no acute disease. Electronically Signed: Fantasma Laguerre MD at 1:08 EDT , CC: Dr. Linden Chavez DO; Johann Lemons DO Project Structural Engineer: Signed Normal [facility] Emergency Department Summary on 05-08-2024 Emergency Department Summary [facility] Medical Records Department [address] [place] [address] Emergency Department Summary 05/08/24 MR#: [id number] Acct: [id number] Name: JERALD YODER Rep #: [id number] : 1960 64 From: Johann Lemons DO PCP: Dr. Linden Chavez DO Status:DEP ER Location: ED HPI History of Present Illness Chief Complaint: Weakness Informant: patient Narrative Narrative: Patient is a 64-year-old male with past medical history of hypertension hyperlipidemia and insulin- dependent diabetes. He states that he is just felt tired for the last few days. He states that he has been taking his medication as directed but today checked his blood sugar and it was elevated at 380. He denies any fevers or chills abdominal pain nausea or vomiting. He states has been no dysuria and he denies any known sick contacts. He states that he deals with fluctuating constipation and diarrhea and has been having his normal bowel habits. However because of his sensation of generalized fatigue/weakness and elevated blood sugar reading he was concerned that there may be an infectious cause driving this or that he may need admitted and therefore comes in for evaluation 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 Esophageal candidiasis Current use of insulin Back pain due to injury Restless legs Injury of head and neck COPD (chronic obstructive pulmonary disease) High cholesterol History of stress test Depression Chronic pain Non-smoker Sleep apnea Diabetes Hyperlipidemia Hypertension Myocardial infarct Home Medications ???Medication ???Instructions ???Recorded ???Last Taken ???Type metformin 500 mg tablet,extended 500 mg PO BID diabetes 05/02/19 03/18/22 History release 24 hr fluconazole 200 mg tablet 200 mg PO DAILY antibiotic 03/19/22 03/18/22 History (Diflucan) glipizide 5 mg tablet 5 mg PO BID diabetes 03/19/22 03/18/22 History insulin glargine 100 unit/mL (3 10 unit subcut BID diabetes 03/19/22 03/18/22 History mL) subcutaneous pen (Lantus Solostar U-100 Insulin) ondansetron 4 mg disintegrating 4 mg PO Q8H PRN nausea and 04/26/22 Unknown Rx tablet vomiting #10 tabs dicyclomine 20 mg tablet 20 mg PO TID PRN abdominal 08/07/22 Unknown Rx cramping #20 tabs diphenoxylate-atropine 2.5 1 tab PO 4X/DAY PRN PRN diarrhea 5 10/30/22 Unknown Rx mg-0.025 mg tablet (Lomotil) days #20 tabs cyclobenzaprine 10 mg tablet 10 mg PO TID PRN Muscle Spasm #20 08/26/23 Unknown Rx TABLETS hydrocortisone 1 % topical cream 1 applic topical TID PRN skin 08/26/23 Unknown Rx irritation #28.4 grams ibuprofen 600 mg tablet 600 mg PO Q8H PRN PRN pain #20 08/26/23 Unknown Rx TABLETS ciprofloxacin HCl 500 mg tablet 500 mg PO BID #20 tabs 09/29/23 Unknown Rx (Cipro) insulin glargine 100 unit/mL 1 unit subcut QPM 09/29/23 Unknown History subcutaneous solution (Lantus U-100 Insulin) levothyroxine 100 mcg tablet 100 mcg PO DAILY 09/29/23 Unknown History metronidazole 500 mg tablet 500 mg PO BID 10 days #20 tabs 09/29/23 Unknown Rx magnesium citrate (Citrate of 300 ml PO DAILY PRN constipation 12/08/23 Unknown Rx Magnesia oral) #296 mL meclizine 25 mg tablet 25 mg PO TID #30 tabs 12/08/23 Unknown Rx polyethylene glycol 3350 17 17 g PO DAILY #510 grams 03/08/24 Unknown Rx gram/dose oral powder (Miralax) Allergy/AdvReac Type Severity Reaction Status Date / Time diphenhydramine HCl (From Allergy Rash Verified 05/07/24 23:36 Benadryl) Penicillins Allergy Rash Verified 05/07/24 23:36 venom-honey bee (bee venom Allergy Swelling Verified 05/07/24 23:36 (honey bee)) Surgical History History of coronary artery stent placement Hx of inguinal herniorrhaphy Hx of left knee surgery Social History household members: none Smoking Status: Never smoker substance use type: does not use ROS ROS ED Constitutional Constitutional ED: Denies chills or fever(s) Eyes Eyes: Denies blurry vision or change in vision ENT ENT ED: Denies rhinorrhea or sore throat Cardiovascular Cardiovascular: Denies chest pain Respiratory/Chest Respiratory/Chest: Denies cough or dyspnea Gastrointestinal Gastrointestinal: Reports constipation and diarrhea; Denies abdominal pain, nausea or vomiting Genitourinary Genitourinary ED: Denies dysuria Musculoskeletal Musculoskeletal: Denies myalgias Integumentary Denies rash Neurologic Neurologic: Reports weakness; Denies headache(s) Hematologic/Lymphatic Hematologic/Lymphatic: Denies easy bleeding or easy bruising EXAM Physical Exam Const Vital Signs: 07/ (more content not included)... Normal [facility] Liver Profileon 05-08-2024 Albumin [Mass/Vol] 3.5 g/dL Normal 3.2-5.0 [facility] Comment on above: Performed By: #### L 100.0100, L500.4050 #### [facility] [address] [place], [address] ALK P 77 U/L Normal 45-117 [facility] Comment on above: Performed By: #### L 100.0100, L500.4050 #### [facility] [address] [place], [address] ALT [Catalytic activity/Vol] 16 U/L Normal 16-61 [facility] Comment on above: Performed By: #### L 100.0100, L500.4050 #### [facility] [address] [place], [address] AST [Catalytic activity/Vol] 23 U/L Normal 15-37 [facility] Comment on above: Performed By: #### L 100.0100, L500.4050 #### [facility] [address] [place], [address] Bilirubin [Mass/Vol] 0.50 mg/dL Normal 0.20-1.00 [facility] Comment on above: Result Comment: For patients on eltrombopag therapy, use of Dimension [place] TBIL is not recommended. Performed By: #### L 100.0100, L500.4050 #### [facility] [address] [place], [address] Bilirubin.direct [Mass/Vol] 0.18 mg/dL Normal 0.00-0.30 [facility] Comment on above: Performed By: #### L 100.0100, L500.4050 #### [facility] [address] [place], [address] Globulin (S) [Mass/Vol] 3.4 g/dL Normal 2.2-4.2 [facility] Comment on above: Performed By: #### L 100.0100, L500.4050 #### [facility] [address] [place], [address] T PROT 6.9 g/dL Normal 6.4-8.2 [facility] Comment on above: Performed By: #### L 100.0100, L500.4050 #### [facility] [address] [place], [address] Urinalysis, Completeon 05-08 BACTERIA 0 SEEN Normal None Seen [facility] Comment on above: Order Comment: CLEAN CATCH Performed By: #### L 501.080 #### [facility] [address] [place], [address] EPI,SQUAMOUS 0 SEEN Normal 0-5 [facility] Comment on above: Order Comment: CLEAN CATCH Performed By: #### L 501.080 #### [facility] [address] [place], [address] Mucus Ql (Urine sed) 0 SEEN Normal [facility] Comment on above: Order Comment: CLEAN CATCH Performed By: #### L 501.080 #### [facility] [address] [facility] [address] RBC 0 SEEN Normal 0-5 [facility] Comment on above: Order Comment: CLEAN CATCH Performed By: #### L 501.080 #### [facility] [address] [place], [address] WBC 0 SEEN Normal 0-5 [facility] Comment on above: Order Comment: CLEAN CATCH Performed By: #### L 501.080 #### [facility] [address] [facility] [address] Absolute lymphocyte countOrd ered By: Johann Lemons on 03-08-2024 Lymphocytes Auto (Unsp spec) [#/Vol] 1.65 10*3/uL 0.83-4.51 [facility] Automated lymphocyte count a s percentage of total leukocytesOrdered By: Johann Lemons on 03-08-2024 Lymphocytes/100 WBC Auto (Unsp spec) 22.8 % 19-41 [facility] Basophil percentageOrdered B y: Johann Lemons on 03-08-2024 Basophils/100 WBC (Bld) 0.6 % 0-1 [facility] Bilirubin [Mass/Vol] 0.60 mg/dL 0.20-1.00 [facility] Comment on above: For patients on eltr ombopag therapy, use of Dimension [place] TBIL is not recommended. Chloride [Moles/Vol] 97 mmol/L 98-107 [facility] Eosinophils/100 WBC (Bld) 3.9 % 0-5 [facility] Glucose [Mass/Vol] 520 mg/dL 74-106 [facility] Comment on above: Critical Result(s) C alled at: 07:30:39 03/08/2024 by: Darrell Santos to Dawna Vazquez. Results read back by same.Glucose result greater than or equal to 200 mg/dLsuggests DIABETES MELLITUS per A.D.A. criteria. Hemoglobin (Bld) [Mass/Vol] 14.8 g/dL 13.0-16.5 [facility] Monocytes/100 WBC (Bld) 6.9 % 0-10 [facility] Neutrophils (Bld) [#/Vol] 4.8 10*3/uL 2.0-7.7 [facility] Neutrophils/100 WBC (Bld) 65.4 % 47-70 [facility] Potassium [Moles/Vol] 4.0 mmol/L 3.5-5.1 [facility] Protein [Mass/Vol] 7.2 g/dL 6.4-8.2 [facility] Sodium [Moles/Vol] 134 mmol/L 136-145 [facility] WBC (Bld) [#/Vol] 7.3 10*3/uL 4.4-11.0 [facility] Determination of erythrocyte mean corpuscular volume (MCV)Ordered By: Johann Lemons on 03-08-2024 MCV (RBC) [Entitic vol] 82.2 fL 80-94 [facility] Direct bilirubinOrdered By: Johann Lemons on 03-08-2024 Bilirubin.direct [Mass/Vol] 0.19 mg/dL 0.00-0.30 [facility] Erythrocyte distribution wid th ratioOrdered By: Johann Lemons on 03-08-2024 Erythrocyte distribution width (RBC) [Ratio] 13.3 % 11.6-14.6 [facility] Erythrocyte distribution wid th standard deviationOrdered By: Johann Lemons on 03-08-2024 Erythrocyte distribution width (RBC) [Entitic vol] 39.7 fL 35.1-43.9 [facility] Hematocrit Auto (Bld) [Volum e fraction]Ordered By: Johann Lemons on 03-08-2024 Hematocrit (Bld) [Volume fraction] 42.9 % 40-54 [facility] Immature granulocytes/100 WB C Auto (Bld)Ordered By: Johann Lemons on 03-08-2024 Immature granulocytes/100 WBC (Bld) 0.400 % 0.0-0.9 [facility] Comment on above: IG% - Immature Granu locytes (promyelocytes, myelocytes and metamyelocytes) > 1% indicates that a LEFT SHIFT is Present. Laboratory - Chemistry and C hemistry - challengeOrdered By: Johann Lemons on 03-08-2024 ALP [Catalytic activity/Vol] 84 U/L 45-117 [facility] ALT [Catalytic activity/Vol] 22 U/L 16-61 [facility] CO2 [Moles/Vol] 31.0 mmol/L 21.0-32.0 [facility] Globulin (S) [Mass/Vol] 3.5 g/dL 2.2-4.2 [facility] Lipase [Catalytic activity/Vol] 17 U/L 13-75 [facility] [facility] Comment on above: Please note:LIPASE r evised reference range effective 23. New Lipase methodology. Expected to produce lower values than the previous assay method. NEW Reference Range: 13 - 75 U/L Urea nitrogen/Creatinine [Mass ratio] 16.7 mg/mg 10-20 [facility] Laboratory - Hematology and Cell countsOrdered By: Johann Lemons on 03-08-2024 MCH (RBC) [Entitic mass] 28.4 pg 27.0-32.0 [facility] MCHC (RBC) [Mass/Vol] 34.5 g/dL 32-36 [facility] Nucleated RBC/100 WBC (Bld) [Ratio] 0 % 0-5 [facility] Platelet mean volume (Bld) [Entitic vol] 9.6 fL 6.2-12.0 [facility] Platelets (Bld) [#/Vol] 194 10*3/uL 150-450 [facility] No Panel InformationOrdered By: Johann Lemons on 03-08-2024 Estimated Creatinine Clearance Calc 99.26 ml/min [facility] Estimated GFR (MDRD) Amer 102 mL/min >60 [facility] Comment on above: GFR Calc Estimated GFR (MDRD) Non-Af Amer 84 mL/min >60 [facility] Comment on above: Non- GFR Calc RBC Auto (Bld) [#/Vol]Ordere d By: Johann Lemons on 03-08-2024 RBC (Bld) [#/Vol] 5.22 10*6/uL 4.6-6.2 [facility] Serum or plasma calcium yayo urement (mass/volume)Ordered By: Johann Lemons on 03-08-2024 Calcium [Mass/Vol] 9.5 mg/dL 8.5-10.1 [facility] Serum or plasma creatinine m easurement (mass/volume)Ordered By: Johann Lemons on 03-08-2024 Creatinine [Mass/Vol] 0.96 mg/dL 0.70-1.30 [facility] Comment on above: The validity of the calculated GFR & GFRAA in patients over 70 years has not been determined. Clinical correlation is essential. Serum or plasma urea nitroge n measurement (mass/volume)Ordered By: Johann Lemons on 03-08-2024 Urea nitrogen [Mass/Vol] 16 mg/dL 7-18 [facility] Thin prep Papanicolaou smear with manual screeningOrdered By: Johann Lemons on 03-08-2024 Thin prep Papanicolaou smear with manual screening 3.7 g/dL 3.2-5.0 [facility] Thin prep Papanicolaou smear with manual screening 12 U/L 15-37 [facility] Thin prep Papanicolaou smear with manual screening 6 5-15 [facility] Absolute lymphocyte countOrd ered By: Keenan Wu on 02-07-2024 Lymphocytes Auto (Unsp spec) [#/Vol] 1.71 10*3/uL 0.83-4.51 [facility] Automated lymphocyte count a s percentage of total leukocytesOrdered By: Keenan Wu on 02-07-2024 Lymphocytes/100 WBC Auto (Unsp spec) 17.4 % 19-41 [facility] Basophil percentageOrdered B y: Keenan Wu on 02-07-2024 Basophil percentage 0 SEEN /hpf 0-5 [facility] Basophils/100 WBC (Bld) 0.5 % 0-1 [facility] Bilirubin [Mass/Vol] 0.60 mg/dL 0.20-1.00 [facility] Comment on above: For patients on eltr ombopag therapy, use of Dimension [place] TBIL is not recommended. Chloride [Moles/Vol] 98 mmol/L 98-107 [facility] Eosinophils/100 WBC (Bld) 3.1 % 0-5 [facility] Glucose [Mass/Vol] 461 mg/dL 74-106 [facility] Comment on above: Critical Result(s) C alled at: 21:52:34 02/07/2024 by: GLORIA MORA TO MMARTIN2. Results read back by same.Glucose result greater than or equal to 200 mg/dLsuggests DIABETES MELLITUS per A.D.A. criteria. Hemoglobin (Bld) [Mass/Vol] 15.4 g/dL 13.0-16.5 [facility] Monocytes/100 WBC (Bld) 5.4 % 0-10 [facility] Neutrophils (Bld) [#/Vol] 7.2 10*3/uL 2.0-7.7 [facility] Neutrophils/100 WBC (Bld) 73.2 % 47-70 [facility] Potassium [Moles/Vol] 3.9 mmol/L 3.5-5.1 [facility] Protein [Mass/Vol] 7.5 g/dL 6.4-8.2 [facility] Sodium [Moles/Vol] 134 mmol/L 136-145 [facility] WBC (Bld) [#/Vol] 9.9 10*3/uL 4.4-11.0 [facility] Bilirubin Test strip Ql (U)O rdered By: Keenan Wu on 02-07-2024 Bilirubin Ql (U) Negative Negative [facility] Determination of erythrocyte mean corpuscular volume (MCV)Ordered By: Keenan Wu on 02-07-2024 MCV (RBC) [Entitic vol] 82.1 fL 80-94 [facility] Erythrocyte distribution wid th ratioOrdered By: Keenan Wu on 02-07-2024 Erythrocyte distribution width (RBC) [Ratio] 13.6 % 11.6-14.6 [facility] Erythrocyte distribution wid th standard deviationOrdered By: Keenan Wu on 02-07-2024 Erythrocyte distribution width (RBC) [Entitic vol] 40.1 fL 35.1-43.9 [facility] Hematocrit Auto (Bld) [Volum e fraction]Ordered By: Keenan Wu on 02-07-2024 Hematocrit (Bld) [Volume fraction] 44.1 % 40-54 [facility] Immature granulocytes/100 WB C Auto (Bld)Ordered By: Keenan Wu on 02-07-2024 Immature granulocytes/100 WBC (Bld) 0.400 % 0.0-0.9 [facility] Comment on above: IG% - Immature Granu locytes (promyelocytes, myelocytes and metamyelocytes) > 1% indicates that a LEFT SHIFT is Present. Ketones Test strip Ql (U)Ord ered By: Keenan Wu on 02-07-2024 Ketones Ql (U) Negative Negative [facility] Laboratory - Chemistry and C hemistry - challengeOrdered By: Keenan Wu on 02-07-2024 Albumin/Globulin [Mass ratio] 1.1 {ratio} 0.9-2.4 [facility] ALP [Catalytic activity/Vol] 105 U/L 45-117 [facility] ALT [Catalytic activity/Vol] 20 U/L 16-61 [facility] CO2 [Moles/Vol] 30.0 mmol/L 21.0-32.0 [facility] Globulin (S) [Mass/Vol] 3.6 g/dL 2.2-4.2 [facility] Urea nitrogen/Creatinine [Mass ratio] 17.4 mg/mg 10-20 [facility] Laboratory - Drug toxicology Ordered By: Keenan Wu on 02-07-2024 Amphetamines Ql (U) Negative <1000 ng/mL [facility] Benzodiazepines Ql (U) Negative < 200 ng/mL [facility] Cannabinoids Screen Ql (U) Negative < 50 ng/mL [facility] Cocaine Ql (U) Negative < 300 ng/mL [facility] Opiates Ql (U) Negative < 300 ng/mL [facility] Laboratory - Hematology and Cell countsOrdered By: Keenan Wu on 02-07-2024 MCH (RBC) [Entitic mass] 28.7 pg 27.0-32.0 [facility] MCHC (RBC) [Mass/Vol] 34.9 g/dL 32-36 [facility] Nucleated RBC/100 WBC (Bld) [Ratio] 0 % 0-5 [facility] Platelet mean volume (Bld) [Entitic vol] 9.6 fL 6.2-12.0 [facility] Platelets (Bld) [#/Vol] 255 10*3/uL 150-450 [facility] Mucus LM Ql (Urine sed)Order ed By: Keenan Wu on 02-07-2024 Mucus Ql (Urine sed) 0 SEEN /hpf [facility] Nitrite Test strip Ql (U)Ord ered By: Keenan Wu on 02-07-2024 Nitrite Ql (U) Negative Negative [facility] No Panel InformationOrdered By: Keenan Wu on 02-07-2024 Ethyl Alcohol Level < 3.0 mg/dL [facility] Comment on above: The serum:whole bloo d ethanol ratio is approximately 1.14and varies slightly with hematocrit. Medical Alcohol reference interval and critical value innon-tolerant individuals; 50 - 100 Impairment 100 Intoxication 100 - 250 Severe Poisoning 250 - 400 Deep/possible fatal coma MDMA (Ecstasy) Screen Negative < 500 ng/mL [facility] Urine Barbiturates Screen Negative < 200 ng/mL [facility] Urine Drug Screen Comment [facility] Comment on above: CONFIRMATORY TESTING FOR ALL POSITIVE URINE DRUG SCREENRESULTS WILL ONLY BE SENT OUT UPON PHYSICIAN ORDER. VISTA Urine Drug Screen methods provide only preliminaryanalytical test results. A more specific alternate chemicalmethod must be used in order to obtain a confirmedanalytical result. Gas chromatography/mass spectrometery(GC/MS) is the preferred confirmatory method. Clinicalconsideration and professional judgement should be appliedto any drug of abuse test result, particularly whenpreliminary positive results are used. URINE TCA TESTING MUST BE ORDERED SEPARATELY. USE TESTMNEMONIC: [facility] Urine Methadone Screen Negative < 300 ng/mL [facility] Urine RBC 0 SEEN /hpf 0-5 [facility] Estimated Creatinine Clearance Calc 87.42 ml/min [facility] Estimated GFR (MDRD) Amer 88 mL/min >60 [facility] Comment on above: GFR Calc Estimated GFR (MDRD) Non-Af Amer 72 mL/min >60 [facility] Comment on above: Non- GFR Calc Protein Test strip Ql (U)Ord ered By: Keenan Wu on 02-07-2024 Protein Ql (U) 15 mg/dl Negative [facility] RBC Auto (Bld) [#/Vol]Ordere d By: Keenan Wu on 02-07-2024 RBC (Bld) [#/Vol] 5.37 10*6/uL 4.6-6.2 [facility] Serum or plasma calcium yayo urement (mass/volume)Ordered By: Keenan Wu on 02-07-2024 Calcium [Mass/Vol] 10.2 mg/dL 8.5-10.1 [facility] Serum or plasma creatinine m easurement (mass/volume)Ordered By: Keenan Wu on 02-07-2024 Creatinine [Mass/Vol] 1.09 mg/dL 0.70-1.30 [facility] Comment on above: The validity of the calculated GFR & GFRAA in patients over 70 years has not been determined. Clinical correlation is essential. Serum or plasma urea nitroge n measurement (mass/volume)Ordered By: Keenan Wu on 02-07-2024 Urea nitrogen [Mass/Vol] 19 mg/dL 7-18 [facility] Squamous epithelial cells de tection in urine sediment by light microscopyOrdered By: Keenan Wu on 02-07-2024 Epithelial cells.squamous LM Ql (Urine sed) 0 SEEN /hpf 0-5 [facility] Thin prep Papanicolaou smear with manual screeningOrdered By: Keenan Wu on 02-07-2024 Thin prep Papanicolaou smear with manual screening 379 mg/dL 74-106 [facility] Comment on above: MANAGEMENT OF PATIEN T CARE PER NURSING PROTOCOL Thin prep Papanicolaou smear with manual screening 3.9 g/dL 3.2-5.0 [facility] Thin prep Papanicolaou smear with manual screening 12 U/L 15-37 [facility] Thin prep Papanicolaou smear with manual screening 6 5-15 [facility] Urine blood detectionOrdered By: Keenan Wu on 02-07-2024 RBC Ql (U) Negative Negative [facility] Urine clarityOrdered By: Osvaldo Wu on 02-07-2024 Clarity (U) Clear Clear [facility] Urine color determinationOrd ered By: Keenan Wu on 02-07-2024 Color (U) Yellow Yellow [facility] Urine glucose detectionOrder ed By: Keenan Wu on 02-07-2024 Glucose Ql (U) 1000 mg/dl Normal [facility] Urine leukocyte esterase det ection by dipstickOrdered By: Keenan Wu on 02-07-2024 Leukocyte esterase Test strip Ql (U) Negative Negative [facility] Urine pHOrdered By: Keenan overton on 02-07-2024 pH (U) 6.0 [pH] 5.0 - 8.0 [facility] Urine phencyclidine (PCP) de tectionOrdered By: Keenan Wu on 02-07-2024 Phencyclidine Ql (U) Negative < 25 ng/mL [facility] Urine sediment bacteria coun t by microscopy (number/high power field)Ordered By: Keenan Wu on 02-07-2024 Bacteria LM.HPF (Urine sed) [#/Area] 0 /[HPF] None Seen [facility] Urine specific gravity measu rementOrdered By: Keenan Wu on 02-07-2024 Specific gravity (U) [Rel density] 1.015 1.002-1.030 [facility] Urine urobilinogen measureme ntOrdered By: Keenan Wu on 02-07-2024 Urobilinogen Ql (U) Normal mg/dl Normal [facility] Amorphous sediment detection in urine sediment by light microscopyOrdered By: Shania Disla on 01-27-2024 Amorphous sediment LM Ql (Urine sed) 0 SEEN [facility] Basophil percentageOrdered B y: Shania Disla on 01-27-2024 Basophil percentage 0 SEEN /hpf 0-5 [facility] Bilirubin Test strip Ql (U)O rdered By: Shania Disla on 01-27-2024 Bilirubin Ql (U) Negative Negative [facility] Calcium oxalate crystals det ection in urine sediment by light microscopyOrdered By: Shania Disla on 01-27-2024 Calcium oxalate crystals LM Ql (Urine sed) 0 SEEN /hpf [facility] Hyaline casts LM.LPF (Urine sed) [#/Area]Ordered By: Shania Disla on 01-27-2024 Hyaline casts (Urine sed) [#/Area] 0 /[LPF] 0-5 [facility] Ketones Test strip Ql (U)Ord ered By: Shania Disla on 01-27-2024 Ketones Ql (U) Negative Negative [facility] Magnesium ammonium phosphate crystal detectionOrdered By: Shania Disla on 01-27-2024 Triple phosphate crystals LM Ql (Urine sed) 0 SEEN /hpf [facility] Mucus LM Ql (Urine sed)Order ed By: Shania Disla on 01-27-2024 Mucus Ql (Urine sed) 0 SEEN /hpf [facility] Nitrite Test strip Ql (U)Ord ered By: Shania Disla on 01-27-2024 Nitrite Ql (U) Negative Negative [facility] No Panel InformationOrdered By: Shania Disla on 01-27-2024 Urine RBC 0 SEEN /hpf 0-5 [facility] Protein Test strip Ql (U)Ord ered By: Shania Disla on 01-27-2024 Protein Ql (U) Negative Negative [facility] Squamous epithelial cells de tection in urine sediment by light microscopyOrdered By: Shania Disla on 01-27-2024 Epithelial cells.squamous LM Ql (Urine sed) 5-10 SEEN /hpf 0-5 [facility] Thin prep Papanicolaou smear with manual screeningOrdered By: Shania Disla on 01-27-2024 Thin prep Papanicolaou smear with manual screening 277 mg/dL 74-106 [facility] Comment on above: MANAGEMENT OF PATIEN T CARE PER NURSING PROTOCOL Urine blood detectionOrdered By: Shania Disla on 01-27-2024 RBC Ql (U) Negative Negative [facility] Urine clarityOrdered By: Anamaria Disla on 01-27-2024 Clarity (U) Clear Clear [facility] Urine coarse granular cast d etectionOrdered By: Shania Disla on 01-27-2024 Coarse Granular Casts LM Ql (Urine sed) 0 SEEN /lpf 0-5 /lpf [facility] Urine color determinationOrd ered By: Shania Disla on 01-27-2024 Color (U) Straw Yellow [facility] Urine glucose detectionOrder ed By: Shania Disla on 01-27-2024 Glucose Ql (U) 1000 mg/dl Normal [facility] Urine leukocyte esterase det ection by dipstickOrdered By: Shania Disla on 01-27-2024 Leukocyte esterase Test strip Ql (U) Negative Negative [facility] Urine pHOrdered By: Shania Disla on 01-27-2024 pH (U) 6.0 [pH] 5.0 - 8.0 [facility] Urine sediment Trichomonas s pecies count by microscopy (number/low power field)Ordered By: Shania Disla on 01-27-2024 Trichomonas sp LM.LPF (Urine sed) [#/Area] 0 SEEN /hpf None Seen [facility] Urine sediment bacteria coun t by microscopy (number/high power field)Ordered By: Shania Disla on 01-27-2024 Bacteria LM.HPF (Urine sed) [#/Area] 0 /[HPF] None Seen [facility] Urine sediment erythrocyte c ast detection by light microscopyOrdered By: Shania Disla on 01-27-2024 RBC casts LM Ql (Urine sed) 0 SEEN /lpf None Seen [facility] Urine sediment fine granular cast count by microscopy (number/low power field)Ordered By: Shania Disla on 01-27-2024 Fine Granular Casts LM.LPF (Urine sed) [#/Area] 0 SEEN /lpf 0-5 [facility] Urine sediment leukocyte pooja t count by microscopy (number/low power field)Ordered By: Shania Disla on 01-27-2024 WBC casts LM.LPF (Urine sed) [#/Area] 0 SEEN /lpf None Seen [facility] Urine sediment unidentified crystal count by microscopy (number/high powered field)Ordered By: Shania Disla on 01-27-2024 Unidentified crystals LM.HPF (Urine sed) [#/Area] 0 SEEN /hpf None Seen [facility] Urine sediment uric acid cry stal count by microscopy (number/high power field)Ordered By: Shania Disla on 01-27-2024 Urate crystals LM.HPF (Urine sed) [#/Area] 0 /[HPF] [facility] Urine sediment yeast count b y microscopy (number/high powered field)Ordered By: Shania Disla on 01-27-2024 Yeast LM.HPF (Urine sed) [#/Area] RARE /hpf None Seen [facility] Urine specific gravity measu rementOrdered By: Shania Disla on 01-27-2024 Specific gravity (U) [Rel density] 1.015 1.002-1.030 [facility] Urine urobilinogen measureme ntOrdered By: Shania Disla on 01-27-2024 Urobilinogen Ql (U) Normal mg/dl Normal [facility] Waxy casts detection in urin e sediment by light microscopyOrdered By: Shania Disla on 01-27-2024 Waxy casts LM Ql (Urine sed) 0 SEEN /lpf None Seen [facility] Absolute lymphocyte countOrd ered By: Shania Disla on 01-26-2024 Lymphocytes Auto (Unsp spec) [#/Vol] 0.82 10*3/uL 0.83-4.51 [facility] Automated lymphocyte count a s percentage of total leukocytesOrdered By: Shania Disla on 01-26-2024 Lymphocytes/100 WBC Auto (Unsp spec) 8.4 % 19-41 [facility] Basophil percentageOrdered B y: Shania Disla on 01-26-2024 Basophils/100 WBC (Bld) 0.2 % 0-1 [facility] Bilirubin [Mass/Vol] 0.70 mg/dL 0.20-1.00 [facility] Comment on above: For patients on eltr ombopag therapy, use of Dimension [place] TBIL is not recommended. Chloride [Moles/Vol] 100 mmol/L 98-107 [facility] Eosinophils/100 WBC (Bld) 1.8 % 0-5 [facility] Glucose [Mass/Vol] 553 mg/dL 74-106 [facility] Comment on above: Glucose result great er than or equal to 200 mg/dLsuggests DIABETES MELLITUS per A.D.A. criteria. Hemoglobin (Bld) [Mass/Vol] 14.3 g/dL 13.0-16.5 [facility] Monocytes/100 WBC (Bld) 6.3 % 0-10 [facility] Neutrophils (Bld) [#/Vol] 8.1 10*3/uL 2.0-7.7 [facility] Neutrophils/100 WBC (Bld) 83.0 % 47-70 [facility] Potassium [Moles/Vol] 4.2 mmol/L 3.5-5.1 [facility] Protein [Mass/Vol] 6.8 g/dL 6.4-8.2 [facility] Sodium [Moles/Vol] 135 mmol/L 136-145 [facility] Comment on above: Critical Result(s) C alled at: 00:43:16 01/27/2024 by: Britney Beasley to [employer]. Results read back by same. WBC (Bld) [#/Vol] 9.8 10*3/uL 4.4-11.0 [facility] Determination of erythrocyte mean corpuscular volume (MCV)Ordered By: Shania Disla on 01-26-2024 MCV (RBC) [Entitic vol] 82.4 fL 80-94 [facility] Direct bilirubinOrdered By: Shania Disla on 01-26-2024 Bilirubin.direct [Mass/Vol] 0.20 mg/dL 0.00-0.30 [facility] Erythrocyte distribution wid th ratioOrdered By: Shania Disla on 01-26-2024 Erythrocyte distribution width (RBC) [Ratio] 13.4 % 11.6-14.6 [facility] Erythrocyte distribution wid th standard deviationOrdered By: Shania Disla on 01-26-2024 Erythrocyte distribution width (RBC) [Entitic vol] 39.9 fL 35.1-43.9 [facility] Hematocrit Auto (Bld) [Volum e fraction]Ordered By: Shania Disla on 01-26-2024 Hematocrit (Bld) [Volume fraction] 40.8 % 40-54 [facility] Immature granulocytes/100 WB C Auto (Bld)Ordered By: Shania Disla on 01-26-2024 Immature granulocytes/100 WBC (Bld) 0.300 % 0.0-0.9 [facility] Comment on above: IG% - Immature Granu locytes (promyelocytes, myelocytes and metamyelocytes) > 1% indicates that a LEFT SHIFT is Present. Laboratory - Chemistry and C hemistry - challengeOrdered By: Shania Disla on 01-26-2024 ALP [Catalytic activity/Vol] 71 U/L 45-117 [facility] ALT [Catalytic activity/Vol] 24 U/L 16-61 [facility] CO2 [Moles/Vol] 30.0 mmol/L 21.0-32.0 [facility] Globulin (S) [Mass/Vol] 3.2 g/dL 2.2-4.2 [facility] Urea nitrogen/Creatinine [Mass ratio] 12.5 mg/mg 10-20 [facility] Laboratory - Hematology and Cell countsOrdered By: Shania Disla on 01-26-2024 MCH (RBC) [Entitic mass] 28.9 pg 27.0-32.0 [facility] MCHC (RBC) [Mass/Vol] 35.0 g/dL 32-36 [facility] Nucleated RBC/100 WBC (Bld) [Ratio] 0 % 0-5 [facility] Platelet mean volume (Bld) [Entitic vol] 9.4 fL 6.2-12.0 [facility] Platelets (Bld) [#/Vol] 167 10*3/uL 150-450 [facility] Laboratory - Microbiology an d Antimicrobial susceptibilityOrdered By: Shania Disla on 01-26-2024 SARS-CoV-2 (COVID-19) RNA IOANA+probe Ql (Unsp spec) [facility] No Panel InformationOrdered By: Shania Disla on 01-26-2024 Estimated Creatinine Clearance Calc 85.08 ml/min [facility] Estimated GFR (MDRD) Amer 85 mL/min >60 [facility] Comment on above: GFR Calc Estimated GFR (MDRD) Non-Af Amer 70 mL/min >60 [facility] Comment on above: Non- GFR Calc RBC Auto (Bld) [#/Vol]Ordere d By: Shania Disla on 01-26-2024 RBC (Bld) [#/Vol] 4.95 10*6/uL 4.6-6.2 [facility] Serum or plasma acetone yayo urement (mass/volume)Ordered By: Shania Disla on 01-26-2024 Acetone [Mass/Vol] Negative NEG [facility] Serum or plasma calcium yayo urement (mass/volume)Ordered By: Shania Disla on 01-26-2024 Calcium [Mass/Vol] 9.3 mg/dL 8.5-10.1 [facility] Serum or plasma creatinine m easurement (mass/volume)Ordered By: Shania Disla on 01-26-2024 Creatinine [Mass/Vol] 1.12 mg/dL 0.70-1.30 [facility] Comment on above: The validity of the calculated GFR & GFRAA in patients over 70 years has not been determined. Clinical correlation is essential. Serum or plasma urea nitroge n measurement (mass/volume)Ordered By: Shania Disla on 01-26-2024 Urea nitrogen [Mass/Vol] 14 mg/dL 7-18 [facility] Thin prep Papanicolaou smear with manual screeningOrdered By: Shania Disla on 01-26-2024 Thin prep Papanicolaou smear with manual screening 3.6 g/dL 3.2-5.0 [facility] Thin prep Papanicolaou smear with manual screening 16 U/L 15-37 [facility] Thin prep Papanicolaou smear with manual screening 5 5-15 [facility] Erythrocyte sedimentation ra teOrdered By: Linden Chavez on 01-05-2024 ESR (Bld) [Velocity] 3 mm/h 0-20 [facility] No Panel InformationOrdered By: Linden Chavez on 01-05-2024 C-Reactive Protein Extended Range 3.41 mg/L 0.0-3.0 [facility] Comment on above: C-Reactive Protein ( CRP) provides useful information for thediagnosis, therapy and monitoring of inflammatory processesand associated diseases. For the evaluation of Relative Riskfor Cardiovascular Disease, a High Sensitivity CRP (HSCRP)should be ordered. Endomysial IgA Antibody Negative Negative [facility] Serum or plasma IgA measurem ent (mass/volume)Ordered By: Linden Chavez on 01-05-2024 IgA [Mass/Vol] 363 mg/dL 61-437 [facility] Comment on above: Performed at: [address] [id number] Director: Rasheed Denney PhD, Phone: [phone] Serum or plasma thyroid stim ulating hormone (TSH) measurement (units/volume)Ordered By: Linden Chavez on 01-05-2024 TSH Qn 8.45 uIU/mL 0.358-3.74 [facility] Serum tissue transglutaminas e IgA antibody assay (units/volume)Ordered By: Linden Chavez on 01-05-2024 tTG IgA Qn (S) <2 U/mL 0-3 [facility] Comment on above: Negative 0 - 3 Weak Positive 4 - 10 Positive >10 Tissue Transglutaminase (tTG) has been identified as the endomysial antigen. Studies have demonstr- ated that endomysial IgA antibodies have over 99% specificity for gluten sensitive enteropathy. Whole blood hemoglobin A1c/t otal hemoglobin ratio (mass fraction)Ordered By: Linden Chavez on 01-05-2024 HbA1c (Bld) [Mass fraction] 12.2 % 3.8-5.6 [facility] Comment on above: Normal < 5.7 % Predi abetic 5.7 - 6.4 % Diabetic >or= 6.5 % Please note range changes. Basophil percentageOrdered B y: Shania Disla on 12-25-2023 Chloride [Moles/Vol] 102 mmol/L 98-107 [facility] Glucose [Mass/Vol] 476 mg/dL 74-106 [facility] Comment on above: Critical Result(s) C alled at: 09:52:20 12/25/2023 by: Santana Gaytan to Gabriela KOENIG (ER). Results read back by same.Glucose result greater than or equal to 200 mg/dLsuggests DIABETES MELLITUS per A.D.A. criteria. Potassium [Moles/Vol] 3.8 mmol/L 3.5-5.1 [facility] Sodium [Moles/Vol] 134 mmol/L 136-145 [facility] Laboratory - Chemistry and C hemistry - challengeOrdered By: Shania Disla on 12-25-2023 CO2 [Moles/Vol] 28.0 mmol/L 21.0-32.0 [facility] Urea nitrogen/Creatinine [Mass ratio] 16.5 mg/mg 10-20 [facility] No Panel InformationOrdered By: Shania Disla on 12-25-2023 Estimated Creatinine Clearance Calc 82.86 ml/min [facility] Estimated GFR (MDRD) Amer 82 mL/min >60 [facility] Comment on above: GFR Calc Estimated GFR (MDRD) Non-Af Amer 68 mL/min >60 [facility] Comment on above: Non- GFR Calc Serum or plasma calcium yayo urement (mass/volume)Ordered By: Shania Disla on 12-25-2023 Calcium [Mass/Vol] 9.3 mg/dL 8.5-10.1 [facility] Serum or plasma creatinine m easurement (mass/volume)Ordered By: Shania Disla on 12-25-2023 Creatinine [Mass/Vol] 1.15 mg/dL 0.70-1.30 [facility] Comment on above: The validity of the calculated GFR & GFRAA in patients over 70 years has not been determined. Clinical correlation is essential. Serum or plasma urea nitroge n measurement (mass/volume)Ordered By: Shania Disla on 12-25-2023 Urea nitrogen [Mass/Vol] 19 mg/dL 7-18 [facility] Thin prep Papanicolaou smear with manual screeningOrdered By: Shania Disla on 12-25-2023 Thin prep Papanicolaou smear with manual screening 354 mg/dL 74-106 [facility] Comment on above: MANAGEMENT OF PATIEN T CARE PER NURSING PROTOCOL Thin prep Papanicolaou smear with manual screening 4 5-15 [facility] Absolute lymphocyte countOrd ered By: Barry Mathew on 11-22-2023 Lymphocytes Auto (Unsp spec) [#/Vol] 1.40 10*3/uL 0.83-4.51 [facility] Automated lymphocyte count a s percentage of total leukocytesOrdered By: Barry Mathew on 11-22-2023 Lymphocytes/100 WBC Auto (Unsp spec) 18.9 % 19-41 [facility] Basophil percentageOrdered B y: Barry Mathew on 11-22-2023 Basophil percentage 0-5 SEEN /hpf 0-5 [facility] Basophils/100 WBC (Bld) 0.4 % 0-1 [facility] Bilirubin [Mass/Vol] 0.80 mg/dL 0.20-1.00 [facility] Comment on above: For patients on eltr ombopag therapy, use of Dimension [place] TBIL is not recommended. Chloride [Moles/Vol] 101 mmol/L 98-107 [facility] Eosinophils/100 WBC (Bld) 4.5 % 0-5 [facility] Glucose [Mass/Vol] 357 mg/dL 74-106 [facility] Comment on above: Glucose result great er than or equal to 200 mg/dLsuggests DIABETES MELLITUS per A.D.A. criteria. Hemoglobin (Bld) [Mass/Vol] 15.7 g/dL 13.0-16.5 [facility] Monocytes/100 WBC (Bld) 5.0 % 0-10 [facility] Neutrophils (Bld) [#/Vol] 5.3 10*3/uL 2.0-7.7 [facility] Neutrophils/100 WBC (Bld) 70.9 % 47-70 [facility] Potassium [Moles/Vol] 3.8 mmol/L 3.5-5.1 [facility] Protein [Mass/Vol] 7.6 g/dL 6.4-8.2 [facility] Sodium [Moles/Vol] 137 mmol/L 136-145 [facility] WBC (Bld) [#/Vol] 7.4 10*3/uL 4.4-11.0 [facility] Bilirubin Test strip Ql (U)O rdered By: Barry Mathew on 11-22-2023 Bilirubin Ql (U) Negative Negative [facility] Determination of erythrocyte mean corpuscular volume (MCV)Ordered By: Barry Mathew on 11-22-2023 MCV (RBC) [Entitic vol] 81.6 fL 80-94 [facility] Erythrocyte distribution wid th ratioOrdered By: Barry Mathew on 11-22-2023 Erythrocyte distribution width (RBC) [Ratio] 13.4 % 11.6-14.6 [facility] Erythrocyte distribution wid th standard deviationOrdered By: Barry Mathew on 11-22-2023 Erythrocyte distribution width (RBC) [Entitic vol] 39.2 fL 35.1-43.9 [facility] Hematocrit Auto (Bld) [Volum e fraction]Ordered By: Barry Mathew on 11-22-2023 Hematocrit (Bld) [Volume fraction] 45.6 % 40-54 [facility] Immature granulocytes/100 WB C Auto (Bld)Ordered By: Barry Mathew on 11-22-2023 Immature granulocytes/100 WBC (Bld) 0.300 % 0.0-0.9 [facility] Comment on above: IG% - Immature Granu locytes (promyelocytes, myelocytes and metamyelocytes) > 1% indicates that a LEFT SHIFT is Present. Ketones Test strip Ql (U)Ord ered By: Barry Mathew on 11-22-2023 Ketones Ql (U) Negative Negative [facility] Laboratory - Chemistry and C hemistry - challengeOrdered By: Barry Mathew on 11-22-2023 Albumin/Globulin [Mass ratio] 0.9 {ratio} 0.9-2.4 [facility] ALP [Catalytic activity/Vol] 100 U/L 45-117 [facility] ALT [Catalytic activity/Vol] 16 U/L 16-61 [facility] CO2 [Moles/Vol] 33.0 mmol/L 21.0-32.0 [facility] Globulin (S) [Mass/Vol] 3.9 g/dL 2.2-4.2 [facility] Urea nitrogen/Creatinine [Mass ratio] 13.9 mg/mg 10-20 [facility] Laboratory - Hematology and Cell countsOrdered By: Barry Mathew on 11-22-2023 MCH (RBC) [Entitic mass] 28.1 pg 27.0-32.0 [facility] MCHC (RBC) [Mass/Vol] 34.4 g/dL 32-36 [facility] Nucleated RBC/100 WBC (Bld) [Ratio] 0 % 0-5 [facility] Platelets (Bld) [#/Vol] 220 10*3/uL 150-450 [facility] Mucus LM Ql (Urine sed)Order ed By: Barry Mathew on 11-22-2023 Mucus Ql (Urine sed) RARE /hpf [facility] Nitrite Test strip Ql (U)Ord ered By: Barry Mathew on 11-22-2023 Nitrite Ql (U) Negative Negative [facility] No Panel InformationOrdered By: Barry Mathew on 11-22-2023 Urine RBC 0 SEEN /hpf 0-5 [facility] Estimated Creatinine Clearance Calc 101.37 ml/min [facility] Estimated GFR (MDRD) Amer 105 mL/min >60 [facility] Comment on above: GFR Calc Estimated GFR (MDRD) Non-Af Amer 86 mL/min >60 [facility] Comment on above: Non- GFR Calc Troponin I High Sensitivity 5 pg/mL 3.0-78.0 [facility] Comment on above: Please Note: New Kira t Units and Gender Specific Reference Ranges. For more information see Policy Stat Procedure [place] High Sensitivity Troponin (TNIH) and attachments. Platelet mean volume Kamlesh-Ec ker (Bld) [Entitic vol]Ordered By: Barry Mathew on 11-22-2023 Platelet mean volume (Bld) [Entitic vol] 9.3 fL 6.2-12.0 [facility] Protein Test strip Ql (U)Ord ered By: Barry Mathew on 11-22-2023 Protein Ql (U) 15 mg/dl Negative [facility] RBC Auto (Bld) [#/Vol]Ordere d By: Barry Mathew on 11-22-2023 RBC (Bld) [#/Vol] 5.59 10*6/uL 4.6-6.2 [facility] Serum or plasma calcium yayo urement (mass/volume)Ordered By: Barry Mathew on 11-22-2023 Calcium [Mass/Vol] 10.2 mg/dL 8.5-10.1 [facility] Serum or plasma creatinine m easurement (mass/volume)Ordered By: Barry Mathew on 11-22-2023 Creatinine [Mass/Vol] 0.94 mg/dL 0.70-1.30 [facility] Comment on above: The validity of the calculated GFR & GFRAA in patients over 70 years has not been determined. Clinical correlation is essential. Serum or plasma urea nitroge n measurement (mass/volume)Ordered By: Barry Mathew on 11-22-2023 Urea nitrogen [Mass/Vol] 13 mg/dL 7-18 [facility] Squamous epithelial cells de tection in urine sediment by light microscopyOrdered By: Barry Mathew on 11-22-2023 Epithelial cells.squamous LM Ql (Urine sed) 0-5 SEEN /hpf 0-5 [facility] Thin prep Papanicolaou smear with manual screeningOrdered By: Barry Mathew on 11-22-2023 Thin prep Papanicolaou smear with manual screening 3.7 g/dL 3.2-5.0 [facility] Thin prep Papanicolaou smear with manual screening 9 U/L 15-37 [facility] Thin prep Papanicolaou smear with manual screening 3 5-15 [facility] Urine blood detectionOrdered By: Barry Mathew on 11-22-2023 RBC Ql (U) Negative Negative [facility] Urine clarityOrdered By: Silva Mathew on 11-22-2023 Clarity (U) Sl. Cloudy Clear [facility] Urine color determinationOrd ered By: Barry Mathew on 11-22-2023 Color (U) Yellow Yellow [facility] Urine glucose detectionOrder ed By: Barry Mathew on 11-22-2023 Glucose Ql (U) 1000 mg/dl Normal [facility] Urine leukocyte esterase det ection by dipstickOrdered By: Barry Mathew on 11-22-2023 Leukocyte esterase Test strip Ql (U) 25 /ul Negative [facility] Urine pHOrdered By: Barry otoole on 11-22-2023 pH (U) 5.0 [pH] 5.0 - 8.0 [facility] Urine sediment bacteria coun t by microscopy (number/high power field)Ordered By: Barry Mathew on 11-22-2023 Bacteria LM.HPF (Urine sed) [#/Area] RARE /hpf None Seen [facility] Urine sediment yeast count b y microscopy (number/high powered field)Ordered By: Barry Mathew on 11-22-2023 Yeast LM.HPF (Urine sed) [#/Area] RARE /hpf None Seen [facility] Urine specific gravity measu rementOrdered By: Barry Mathew on 11-22-2023 Specific gravity (U) [Rel density] 1.020 1.002-1.030 [facility] Urine urobilinogen measureme ntOrdered By: Barry Mathew on 11-22-2023 Urobilinogen Ql (U) 1 mg/dl Normal [facility] Absolute lymphocyte countOrd ered By: Live Ashley on 10-01-2023 Lymphocytes Auto (Unsp spec) [#/Vol] 1.41 10*3/uL 0.83-4.51 [facility] Basophil percentageOrdered B y: Live Ashley on 10-01-2023 Basophils/100 WBC (Bld) 0.3 % 0-1 [facility] Chloride [Moles/Vol] 105 mmol/L 98-107 [facility] Eosinophils/100 WBC (Bld) 2.2 % 0-5 [facility] Glucose [Mass/Vol] 429 mg/dL 74-106 [facility] Comment on above: Glucose result great er than or equal to 200 mg/dLsuggests DIABETES MELLITUS per A.D.A. criteria. Neutrophils (Bld) [#/Vol] 6.4 10*3/uL 2.0-7.7 [facility] Neutrophils/100 WBC (Bld) 74.6 % 47-70 [facility] Potassium [Moles/Vol] 4.0 mmol/L 3.5-5.1 [facility] Sodium [Moles/Vol] 137 mmol/L 136-145 [facility] WBC (Bld) [#/Vol] 8.6 10*3/uL 4.4-11.0 [facility] Blood erythrocytes count (nu mber/volume)Ordered By: Live Ashley on 10-01-2023 RBC (Bld) [#/Vol] 4.67 10*6/uL 4.6-6.2 [facility] Blood hemoglobin measurement (mass/volume)Ordered By: Live Ashley on 10-01-2023 Hemoglobin (Bld) [Mass/Vol] 13.4 g/dL 13.0-16.5 [facility] Blood lymphocytes/100 leukoc ytesOrdered By: Live Ashley on 10-01-2023 Lymphocytes/100 WBC (Bld) 16.4 % 19-41 [facility] Blood monocytes/100 leukocyt esOrdered By: Live Ashley on 10-01-2023 Monocytes/100 WBC (Bld) 6.3 % 0-10 [facility] Blood platelet mean volumeOr dered By: Live Ashley on 10-01-2023 Platelet mean volume (Bld) [Entitic vol] 9.4 fL 6.2-12.0 [facility] Determination of erythrocyte mean corpuscular volume (MCV)Ordered By: Live Ashley on 10-01-2023 MCV (RBC) [Entitic vol] 84.4 fL 80-94 [facility] Hematocrit Auto (Bld) [Volum e fraction]Ordered By: Live Ashley on 10-01-2023 Hematocrit (Bld) [Volume fraction] 39.4 % 40-54 [facility] Laboratory - Chemistry and C hemistry - challengeOrdered By: Live Ashley on 10-01-2023 CO2 [Moles/Vol] 28.0 mmol/L 21.0-32.0 [facility] Urea nitrogen/Creatinine [Mass ratio] 14.9 mg/mg 10-20 [facility] Laboratory - Hematology and Cell countsOrdered By: Live Ashley on 10-01-2023 Erythrocyte distribution width (RBC) [Entitic vol] 41.7 fL 35.1-43.9 [facility] Erythrocyte distribution width (RBC) [Ratio] 13.7 % 11.6-14.6 [facility] Immature granulocytes/100 WBC (Bld) 0.200 % 0.0-0.9 [facility] Comment on above: IG% - Immature Granu locytes (promyelocytes, myelocytes and metamyelocytes) > 1% indicates that a LEFT SHIFT is Present. MCH (RBC) [Entitic mass] 28.7 pg 27.0-32.0 [facility] Nucleated RBC/100 WBC (Bld) [Ratio] 0 % 0-5 [facility] MCHC Auto (RBC) [Mass/Vol]Or dered By: Live Ashley on 10-01-2023 MCHC (RBC) [Mass/Vol] 34.0 g/dL 32-36 [facility] No Panel InformationOrdered By: Live Ashley on 10-01-2023 Estimated Creatinine Clearance Calc 83.59 ml/min [facility] Estimated GFR (MDRD) Amer 83 mL/min >60 [facility] Comment on above: GFR Calc Estimated GFR (MDRD) Non-Af Amer 69 mL/min >60 [facility] Comment on above: Non- GFR Calc Platelets bldOrdered By: Pankaj Ashley on 10-01-2023 Platelets (Bld) [#/Vol] 211 10*3/uL 150-450 [facility] Serum or plasma calcium yayo urement (mass/volume)Ordered By: Live Ashley on 10-01-2023 Calcium [Mass/Vol] 8.8 mg/dL 8.5-10.1 [facility] Serum or plasma creatinine m easurement (mass/volume)Ordered By: Live Ashley on 10-01-2023 Creatinine [Mass/Vol] 1.14 mg/dL 0.70-1.30 [facility] Comment on above: The validity of the calculated GFR & GFRAA in patients over 70 years has not been determined. Clinical correlation is essential. Serum or plasma urea nitroge n measurement (mass/volume)Ordered By: Live Ashley on 10-01-2023 Urea nitrogen [Mass/Vol] 17 mg/dL 7-18 [facility] Stool gastrointestinal hemog lobin detection by immunologic methodOrdered By: Live Ashley on 10-01-2023 Lower GI hemoglobin IA Ql (Stl) [facility] Lower GI hemoglobin IA Ql (Stl) [facility] Thin prep Papanicolaou smear with manual screeningOrdered By: Live Ashley on 10-01-2023 Thin prep Papanicolaou smear with manual screening 4 5-15 [facility] Absolute lymphocyte countOrd ered By: Barry Mathew on 09-29-2023 Lymphocytes Auto (Unsp spec) [#/Vol] 1.47 10*3/uL 0.83-4.51 [facility] Basophil percentageOrdered B y: Barry Mathew on 09-29-2023 Basophils/100 WBC (Bld) 0.6 % 0-1 [facility] Bilirubin [Mass/Vol] 0.40 mg/dL 0.20-1.00 [facility] Comment on above: For patients on eltr ombopag therapy, use of Dimension [place] TBIL is not recommended. Chloride [Moles/Vol] 105 mmol/L 98-107 [facility] Eosinophils/100 WBC (Bld) 1.7 % 0-5 [facility] Glucose [Mass/Vol] 213 mg/dL 74-106 [facility] Comment on above: Glucose result great er than or equal to 200 mg/dLsuggests DIABETES MELLITUS per A.D.A. criteria. Neutrophils (Bld) [#/Vol] 8.5 10*3/uL 2.0-7.7 [facility] Neutrophils/100 WBC (Bld) 78.5 % 47-70 [facility] Potassium [Moles/Vol] 3.9 mmol/L 3.5-5.1 [facility] Protein [Mass/Vol] 7.2 g/dL 6.4-8.2 [facility] Sodium [Moles/Vol] 137 mmol/L 136-145 [facility] WBC (Bld) [#/Vol] 10.9 10*3/uL 4.4-11.0 [facility] Blood erythrocytes count (nu mber/volume)Ordered By: Barry Mathew on 09-29-2023 RBC (Bld) [#/Vol] 4.98 10*6/uL 4.6-6.2 [facility] Blood hemoglobin measurement (mass/volume)Ordered By: Barry Mathew on 09-29-2023 Hemoglobin (Bld) [Mass/Vol] 14.0 g/dL 13.0-16.5 [facility] Blood lymphocytes/100 leukoc ytesOrdered By: Barry Mathew on 09-29-2023 Lymphocytes/100 WBC (Bld) 13.5 % 19-41 [facility] Blood monocytes/100 leukocyt esOrdered By: Barry Mathew on 09-29-2023 Monocytes/100 WBC (Bld) 5.2 % 0-10 [facility] Blood platelet mean volumeOr dered By: Barry Mathew on 09-29-2023 Platelet mean volume (Bld) [Entitic vol] 9.2 fL 6.2-12.0 [facility] Determination of erythrocyte mean corpuscular volume (MCV)Ordered By: Barry Mathew on 09-29-2023 MCV (RBC) [Entitic vol] 82.5 fL 80-94 [facility] Hematocrit Auto (Bld) [Volum e fraction]Ordered By: Barry Mathew on 09-29-2023 Hematocrit (Bld) [Volume fraction] 41.1 % 40-54 [facility] Laboratory - Chemistry and C hemistry - challengeOrdered By: Barry Mathew on 09-29-2023 ALP [Catalytic activity/Vol] 100 U/L 45-117 [facility] ALT [Catalytic activity/Vol] 14 U/L 16-61 [facility] CO2 [Moles/Vol] 28.0 mmol/L 21.0-32.0 [facility] Globulin (S) [Mass/Vol] 3.7 g/dL 2.2-4.2 [facility] Lipase [Catalytic activity/Vol] 13 U/L 13-75 [facility] Comment on above: Please note:LIPASE r evised reference range effective 23. New Lipase methodology. Expected to produce lower values than the previous assay method. NEW Reference Range: 13 - 75 U/L Urea nitrogen/Creatinine [Mass ratio] 16.5 mg/mg 10-20 [facility] Laboratory - Hematology and Cell countsOrdered By: Barry Mathew on 09-29-2023 Erythrocyte distribution width (RBC) [Entitic vol] 39.8 fL 35.1-43.9 [facility] Erythrocyte distribution width (RBC) [Ratio] 13.4 % 11.6-14.6 [facility] Immature granulocytes/100 WBC (Bld) 0.500 % 0.0-0.9 [facility] Comment on above: IG% - Immature Granu locytes (promyelocytes, myelocytes and metamyelocytes) > 1% indicates that a LEFT SHIFT is Present. MCH (RBC) [Entitic mass] 28.1 pg 27.0-32.0 [facility] Nucleated RBC/100 WBC (Bld) [Ratio] 0 % 0-5 [facility] MCHC Auto (RBC) [Mass/Vol]Or dered By: Barry Mathew on 09-29-2023 MCHC (RBC) [Mass/Vol] 34.1 g/dL 32-36 [facility] No Panel InformationOrdered By: Barry Mathew on 09-29-2023 Estimated Creatinine Clearance Calc 92.51 ml/min [facility] Estimated GFR (MDRD) Amer 94 mL/min >60 [facility] Comment on above: GFR Calc Estimated GFR (MDRD) Non-Af Amer 77 mL/min >60 [facility] Comment on above: Non- GFR Calc Platelets bldOrdered By: Silva Mathew on 09-29-2023 Platelets (Bld) [#/Vol] 226 10*3/uL 150-450 [facility] Serum or plasma albumin yayo urement (mass/volume)Ordered By: Barry Mathew on 09-29-2023 Albumin [Mass/Vol] 3.5 g/dL 3.2-5.0 [facility] Serum or plasma albumin/glob ulin mass ratioOrdered By: Barry Mathew on 09-29-2023 Albumin/Globulin [Mass ratio] 0.9 {ratio} 0.9-2.4 [facility] Serum or plasma calcium yayo urement (mass/volume)Ordered By: Barry Mathew on 09-29-2023 Calcium [Mass/Vol] 8.7 mg/dL 8.5-10.1 [facility] Serum or plasma creatinine m easurement (mass/volume)Ordered By: Barry Mathew on 09-29-2023 Creatinine [Mass/Vol] 1.03 mg/dL 0.70-1.30 [facility] Comment on above: The validity of the calculated GFR & GFRAA in patients over 70 years has not been determined. Clinical correlation is essential. Serum or plasma urea nitroge n measurement (mass/volume)Ordered By: Barry Mathew on 09-29-2023 Urea nitrogen [Mass/Vol] 17 mg/dL 7-18 [facility] Thin prep Papanicolaou smear with manual screeningOrdered By: Barry Mathew on 09-29-2023 Thin prep Papanicolaou smear with manual screening 9 U/L 15-37 [facility] Thin prep Papanicolaou smear with manual screening 4 5-15 [facility] Absolute lymphocyte countOrd ered By: Ar Calle on 07-29-2023 Lymphocytes Auto (Unsp spec) [#/Vol] 1.27 10*3/uL 0.83-4.51 [facility] Basophil percentageOrdered B y: Ar Calle on 07-29-2023 Basophils/100 WBC (Bld) 0.7 % 0-1 [facility] Chloride [Moles/Vol] 100 mmol/L 98-107 [facility] Eosinophils/100 WBC (Bld) 2.4 % 0-5 [facility] Glucose [Mass/Vol] 408 mg/dL 74-106 [facility] Comment on above: Glucose result great er than or equal to 200 mg/dLsuggests DIABETES MELLITUS per A.D.A. criteria. Neutrophils (Bld) [#/Vol] 6.2 10*3/uL 2.0-7.7 [facility] Neutrophils/100 WBC (Bld) 74.4 % 47-70 [facility] Potassium [Moles/Vol] 4.0 mmol/L 3.5-5.1 [facility] Sodium [Moles/Vol] 135 mmol/L 136-145 [facility] WBC (Bld) [#/Vol] 8.3 10*3/uL 4.4-11.0 [facility] Blood erythrocytes count (nu mber/volume)Ordered By: Ar Calle on 07-29-2023 RBC (Bld) [#/Vol] 4.62 10*6/uL 4.6-6.2 [facility] Blood hemoglobin measurement (mass/volume)Ordered By: Arsusan Calle on 07-29-2023 Hemoglobin (Bld) [Mass/Vol] 12.9 g/dL 13.0-16.5 [facility] Blood lymphocytes/100 leukoc ytesOrdered By: Arsusan Calle on 07-29-2023 Lymphocytes/100 WBC (Bld) 15.2 % 19-41 [facility] Blood monocytes/100 leukocyt esOrdered By: [facility] Monocytes/100 WBC (Bld) 6.7 % 0-10 [facility] Blood platelet mean volumeOr dered By: Arsusan Calle on 07-29-2023 Platelet mean volume (Bld) [Entitic vol] 9.5 fL 6.2-12.0 [facility] Determination of erythrocyte mean corpuscular volume (MCV)Ordered By: Arsusan Calle on 07-29-2023 MCV (RBC) [Entitic vol] 81.8 fL 80-94 [facility] Glucose Glucometer (dC) [M ass/Vol]Ordered By: Ar Calle on 07-29-2023 Glucose [Mass/Vol] 400 mg/dL 74-106 [facility] Comment on above: MANAGEMENT OF PATIEN T CARE PER NURSING PROTOCOL Hematocrit Auto (Bld) [Volum e fraction]Ordered By: Ar Calle on 07-29-2023 Hematocrit (Bld) [Volume fraction] 37.8 % 40-54 [facility] Laboratory - Chemistry and C hemistry - challengeOrdered By: Arsusan Calle on 07-29-2023 CO2 [Moles/Vol] 30.0 mmol/L 21.0-32.0 [facility] Urea nitrogen/Creatinine [Mass ratio] 11.1 mg/mg 10-20 [facility] Laboratory - Hematology and Cell countsOrdered By: Arsusan Calle on 07-29-2023 Erythrocyte distribution width (RBC) [Entitic vol] 39.1 fL 35.1-43.9 [facility] Erythrocyte distribution width (RBC) [Ratio] 13.3 % 11.6-14.6 [facility] Immature granulocytes/100 WBC (Bld) 0.600 % 0.0-0.9 [facility] Comment on above: IG% - Immature Granu locytes (promyelocytes, myelocytes and metamyelocytes) > 1% indicates that a LEFT SHIFT is Present. MCH (RBC) [Entitic mass] 27.9 pg 27.0-32.0 [facility] Nucleated RBC/100 WBC (Bld) [Ratio] 0 % 0-5 [facility] MCHC Auto (RBC) [Mass/Vol]Or dered By: Arsusan Calle on 07-29-2023 MCHC (RBC) [Mass/Vol] 34.1 g/dL 32-36 [facility] No Panel InformationOrdered By: Arsusan Calle on 07-29-2023 Estimated Creatinine Clearance Calc 75.63 ml/min [facility] Estimated GFR (MDRD) Amer 74 mL/min >60 [facility] Comment on above: GFR Calc Estimated GFR (MDRD) Non-Af Amer 61 mL/min >60 [facility] Comment on above: Non- GFR Calc Troponin I High Sensitivity 4 pg/mL 3.0-78.0 [facility] Comment on above: Please Note: New Kira t Units and Gender Specific Reference Ranges. For more information see Policy Stat Procedure [place] High Sensitivity Troponin (TNIH) and attachments. Platelets bldOrdered By: Arsusan Calle on 07-29-2023 Platelets (Bld) [#/Vol] 208 10*3/uL 150-450 [facility] Serum or plasma calcium yayo urement (mass/volume)Ordered By: Arsusan Calle on 07-29-2023 Calcium [Mass/Vol] 8.5 mg/dL 8.5-10.1 [facility] Serum or plasma creatinine m easurement (mass/volume)Ordered By: Ar Calle on 07-29-2023 Creatinine [Mass/Vol] 1.26 mg/dL 0.70-1.30 [facility] Comment on above: The validity of the calculated GFR & GFRAA in patients over 70 years has not been determined. Clinical correlation is essential. Serum or plasma urea nitroge n measurement (mass/volume)[facility] Urea nitrogen [Mass/Vol] 14 mg/dL 7-18 [facility] Thin prep Papanicolaou smear with manual screeningOrdered By: [facility] Thin prep Papanicolaou smear with manual screening 5 5-15 [facility] Absolute lymphocyte countOrd ered By: Dr. Castillo on 03-07-2023 Lymphocytes Auto (Unsp spec) [#/Vol] 1.61 10*3/uL 0.83-4.51 [facility] Basophil percentageOrdered B y: Dr. Castillo on 03-07-2023 Basophils/100 WBC (Bld) 0.5 % 0-1 [facility] Bilirubin [Mass/Vol] 0.60 mg/dL 0.20-1.00 [facility] Comment on above: For patients on eltr ombopag therapy, use of Dimension [place] TBIL is not recommended. Chloride [Moles/Vol] 104 mmol/L 98-107 [facility] Eosinophils/100 WBC (Bld) 3.1 % 0-5 [facility] Glucose [Mass/Vol] 347 mg/dL 74-106 [facility] Comment on above: Glucose result great er than or equal to 200 mg/dLsuggests DIABETES MELLITUS per A.D.A. criteria. Neutrophils (Bld) [#/Vol] 5.0 10*3/uL 2.0-7.7 [facility] Neutrophils/100 WBC (Bld) 67.8 % 47-70 [facility] Potassium [Moles/Vol] 3.8 mmol/L 3.5-5.1 [facility] Protein [Mass/Vol] 7.3 g/dL 6.4-8.2 [facility] Sodium [Moles/Vol] 139 mmol/L 136-145 [facility] WBC (Bld) [#/Vol] 7.4 10*3/uL 4.4-11.0 [facility] Blood erythrocytes count (nu mber/volume)Ordered By: Dr. Castillo on 03-07-2023 RBC (Bld) [#/Vol] 5.02 10*6/uL 4.6-6.2 [facility] Blood hemoglobin measurement (mass/volume)Ordered By: Dr. Castillo on 03-07-2023 Hemoglobin (Bld) [Mass/Vol] 14.3 g/dL 13.0-16.5 [facility] Blood lymphocytes/100 leukoc ytesOrdered By: Dr. Catsillo on 03-07-2023 Lymphocytes/100 WBC (Bld) 21.8 % 19-41 [facility] Blood monocytes/100 leukocyt esOrdered By: Dr. Castillo on 03-07-2023 Monocytes/100 WBC (Bld) 6.4 % 0-10 [facility] Blood platelet mean volumeOr dered By: Dr. Castillo on 03-07-2023 Platelet mean volume (Bld) [Entitic vol] 9.5 fL 6.2-12.0 [facility] Determination of erythrocyte mean corpuscular volume (MCV)Ordered By: Dr. Castillo on 03-07-2023 MCV (RBC) [Entitic vol] 83.3 fL 80-94 [facility] Direct bilirubinOrdered By: Dr. Castillo on 03-07-2023 Bilirubin.direct [Mass/Vol] 0.12 mg/dL 0.00-0.30 [facility] Glucose Glucometer (dC) [M ass/Vol]Ordered By: Dr. Castillo on 03-07-2023 Glucose [Mass/Vol] 134 mg/dL 74-106 [facility] Comment on above: MANAGEMENT OF PATIEN T CARE PER NURSING PROTOCOL Hematocrit Auto (Bld) [Volum e fraction]Ordered By: Dr. Castillo on 03-07-2023 Hematocrit (Bld) [Volume fraction] 41.8 % 40-54 [facility] Laboratory - Chemistry and C hemistry - challengeOrdered By: Dr. Castillo on 03-07-2023 ALP [Catalytic activity/Vol] 67 U/L 45-117 [facility] ALT [Catalytic activity/Vol] 16 U/L 16-61 [facility] CO2 [Moles/Vol] 27.0 mmol/L 21.0-32.0 [facility] Globulin (S) [Mass/Vol] 3.8 g/dL 2.2-4.2 [facility] Lipase [Catalytic activity/Vol] 12 U/L 13-75 [facility] Comment on above: Please note:LIPASE r evised reference range effective 23. New Lipase methodology. Expected to produce lower values than the previous assay method. NEW Reference Range: 13 - 75 U/L Urea nitrogen/Creatinine [Mass ratio] 12.5 mg/mg 10-20 [facility] Laboratory - Hematology and Cell countsOrdered By: Dr. Castillo on 03-07-2023 Erythrocyte distribution width (RBC) [Entitic vol] 40.3 fL 35.1-43.9 [facility] Erythrocyte distribution width (RBC) [Ratio] 13.3 % 11.6-14.6 [facility] Immature granulocytes/100 WBC (Bld) 0.400 % 0.0-0.9 [facility] Comment on above: IG% - Immature Granu locytes (promyelocytes, myelocytes and metamyelocytes) > 1% indicates that a LEFT SHIFT is Present. MCH (RBC) [Entitic mass] 28.5 pg 27.0-32.0 [facility] Nucleated RBC/100 WBC (Bld) [Ratio] 0 % 0-5 [facility] MCHC Auto (RBC) [Mass/Vol]Or dered By: Dr. Castillo on 03-07-2023 MCHC (RBC) [Mass/Vol] 34.2 g/dL 32-36 [facility] No Panel InformationOrdered By: Dr. Castillo on 03-07-2023 Estimated Creatinine Clearance Calc 85.63 ml/min [facility] Estimated GFR (MDRD) Amer 93 mL/min >60 [facility] Comment on above: GFR Calc Estimated GFR (MDRD) Non-Af Amer 77 mL/min >60 [facility] Comment on above: Non- GFR Calc Ethyl Alcohol Level < 3.0 mg/dL [facility] Comment on above: The serum:whole bloo d ethanol ratio is approximately 1.14and varies slightly with hematocrit. Medical Alcohol reference interval and critical value innon-tolerant individuals; 50 - 100 Impairment 100 Intoxication 100 - 250 Severe Poisoning 250 - 400 Deep/possible fatal coma Platelets bldOrdered By: Dr. Castillo on 03-07-2023 Platelets (Bld) [#/Vol] 214 10*3/uL 150-450 [facility] Serum or plasma albumin yayo urement (mass/volume)Ordered By: Dr. Castillo on 03-07-2023 Albumin [Mass/Vol] 3.5 g/dL 3.2-5.0 [facility] Serum or plasma calcium yayo urement (mass/volume)Ordered By: Dr. Castillo on 03-07-2023 Calcium [Mass/Vol] 8.7 mg/dL 8.5-10.1 [facility] Serum or plasma creatinine m easurement (mass/volume)Ordered By: Dr. Castillo on 03-07-2023 Creatinine [Mass/Vol] 1.04 mg/dL 0.70-1.30 [facility] Comment on above: The validity of the calculated GFR & GFRAA in patients over 70 years has not been determined. Clinical correlation is essential. Serum or plasma urea nitroge n measurement (mass/volume)Ordered By: Dr. Castillo on 03-07-2023 Urea nitrogen [Mass/Vol] 13 mg/dL 7-18 [facility] Thin prep Papanicolaou smear with manual screeningOrdered By: Dr. Castillo on 03-07-2023 Thin prep Papanicolaou smear with manual screening 13 U/L 15-37 [facility] Thin prep Papanicolaou smear with manual screening 8 5-15 [facility] Absolute lymphocyte countOrd ered By: Dr. Chavez on 01-18-2023 Lymphocytes Auto (Unsp spec) [#/Vol] 1.51 10*3/uL 0.83-4.51 [facility] Basophil percentageOrdered B y: Dr. Chavez on 01-18-2023 Basophils/100 WBC (Bld) 0.5 % 0-1 [facility] Bilirubin [Mass/Vol] 0.90 mg/dL 0.20-1.00 [facility] Comment on above: For patients on eltr ombopag therapy, use of Dimension [place] TBIL is not recommended. Chloride [Moles/Vol] 105 mmol/L 98-107 [facility] Eosinophils/100 WBC (Bld) 2.6 % 0-5 [facility] Glucose [Mass/Vol] 182 mg/dL 74-106 [facility] Comment on above: Fasting Glucose resu lt greater than or equal to 126 mg/dL suggests DIABETES MELLITUS per A.D.A. criteria. Neutrophils (Bld) [#/Vol] 6.0 10*3/uL 2.0-7.7 [facility] Neutrophils/100 WBC (Bld) 71.9 % 47-70 [facility] Potassium [Moles/Vol] 3.4 mmol/L 3.5-5.1 [facility] Protein [Mass/Vol] 6.9 g/dL 6.4-8.2 [facility] Sodium [Moles/Vol] 139 mmol/L 136-145 [facility] WBC (Bld) [#/Vol] 8.4 10*3/uL 4.4-11.0 [facility] Blood erythrocytes count (nu mber/volume)Ordered By: Dr. Chavez on 01-18-2023 RBC (Bld) [#/Vol] 5.01 10*6/uL 4.6-6.2 [facility] Blood hemoglobin measurement (mass/volume)Ordered By: Dr. Chavez on 01-18-2023 Hemoglobin (Bld) [Mass/Vol] 14.4 g/dL 13.0-16.5 [facility] Blood lymphocytes/100 leukoc ytesOrdered By: Dr. Chavez on 01-18-2023 Lymphocytes/100 WBC (Bld) 18.0 % 19-41 [facility] Blood monocytes/100 leukocyt esOrdered By: Dr. Chavez on 01-18-2023 Monocytes/100 WBC (Bld) 6.8 % 0-10 [facility] Blood platelet mean volumeOr dered By: Dr. Chavez on 01-18-2023 Platelet mean volume (Bld) [Entitic vol] 8.9 fL 6.2-12.0 [facility] Clostridium difficile detect ion by polymerase chain reactionOrdered By: Bernard Chavez on 01-18-2023 C. difficile DNA IOANA+probe Ql (Unsp spec) [facility] Clostridium difficile detect ion by polymerase chain reactionOrdered By: Dr. Chavez on 01-18-2023 C. difficile DNA IOANA+probe Ql (Unsp spec) [facility] Determination of erythrocyte mean corpuscular volume (MCV)Ordered By: Dr. Chavez on 01-18-2023 MCV (RBC) [Entitic vol] 81.6 fL 80-94 [facility] Hematocrit Auto (Bld) [Volum e fraction]Ordered By: Dr. Chavez on 01-18-2023 Hematocrit (Bld) [Volume fraction] 40.9 % 40-54 [facility] Laboratory - Chemistry and C hemistry - challengeOrdered By: Dr. Chavez on 01-18-2023 ALP [Catalytic activity/Vol] 64 U/L 45-117 [facility] ALT [Catalytic activity/Vol] 14 U/L 16-61 [facility] CO2 [Moles/Vol] 28.0 mmol/L 21.0-32.0 [facility] Globulin (S) [Mass/Vol] 3.2 g/dL 2.2-4.2 [facility] Urea nitrogen/Creatinine [Mass ratio] 11.7 mg/mg 10-20 [facility] Laboratory - Hematology and Cell countsOrdered By: Dr. Chavez on 01-18-2023 Erythrocyte distribution width (RBC) [Entitic vol] 39.6 fL 35.1-43.9 [facility] Erythrocyte distribution width (RBC) [Ratio] 13.4 % 11.6-14.6 [facility] Immature granulocytes/100 WBC (Bld) 0.200 % 0.0-0.9 [facility] Comment on above: IG% - Immature Granu locytes (promyelocytes, myelocytes and metamyelocytes) > 1% indicates that a LEFT SHIFT is Present. MCH (RBC) [Entitic mass] 28.7 pg 27.0-32.0 [facility] Nucleated RBC/100 WBC (Bld) [Ratio] 0 % 0-5 [facility] MCHC Auto (RBC) [Mass/Vol]Or dered By: Dr. Chavez on 01-18-2023 MCHC (RBC) [Mass/Vol] 35.2 g/dL 32-36 [facility] No Panel InformationOrdered By: Dr. Chavez on 01-18-2023 Estimated Creatinine Clearance Calc 102.69 ml/min [facility] Estimated GFR (MDRD) Amer 105 mL/min >60 [facility] Comment on above: GFR Calc Estimated GFR (MDRD) Non-Af Amer 86 mL/min >60 [facility] Comment on above: Non- GFR Calc Platelets bldOrdered By: Dr. Chavez on 01-18-2023 Platelets (Bld) [#/Vol] 199 10*3/uL 150-450 [facility] Serum or plasma albumin yayo urement (mass/volume)Ordered By: Dr. Chavez on 01-18-2023 Albumin [Mass/Vol] 3.7 g/dL 3.2-5.0 [facility] Serum or plasma albumin/glob ulin mass ratioOrdered By: Dr. Chavez on 01-18-2023 Albumin/Globulin [Mass ratio] 1.2 {ratio} 0.9-2.4 [facility] Serum or plasma calcium yayo urement (mass/volume)Ordered By: Dr. Chavez on 01-18-2023 Calcium [Mass/Vol] 8.3 mg/dL 8.5-10.1 [facility] Serum or plasma creatinine m easurement (mass/volume)Ordered By: Dr. Chavez on 01-18-2023 Creatinine [Mass/Vol] 0.94 mg/dL 0.70-1.30 [facility] Comment on above: The validity of the calculated GFR & GFRAA in patients over 70 years has not been determined. Clinical correlation is essential. Serum or plasma urea nitroge n measurement (mass/volume)Ordered By: Dr. Chavez on 01-18-2023 Urea nitrogen [Mass/Vol] 11 mg/dL 7-18 [facility] Stool lactoferrin detection by immunoassayOrdered By: Bernard Chavez on 01-18-2023 Lactoferrin IA Ql (Stl) [facility] Stool lactoferrin detection by immunoassayOrdered By: Dr. Chavez on 01-18-2023 Lactoferrin IA Ql (Stl) [facility] Thin prep Papanicolaou smear with manual screeningOrdered By: Dr. Chavez on 01-18-2023 Thin prep Papanicolaou smear with manual screening 10 U/L 15-37 [facility] Thin prep Papanicolaou smear with manual screening 6 5-15 [facility] Laboratory - Chemistry and C hemistry - challengeOrdered By: Dr. Chavez on 12-15-2022 Free T4 [Mass/Vol] 0.76 ng/dL 0.76-1.46 [facility] No Panel InformationOrdered By: Dr. Chavez on 12-15-2022 Thyroid Stimulating Hormone (TSH) 9.17 uIU/mL 0.358-3.74 [facility] Absolute lymphocyte countOrd ered By: Dr. Wu on 12-11-2022 Lymphocytes Auto (Unsp spec) [#/Vol] 1.53 10*3/uL 0.83-4.51 [facility] Basophil percentageOrdered B y: Dr. Wu on 12-11-2022 Basophil percentage 0 SEEN /hpf 0-5 [facility] Basophils/100 WBC (Bld) 0.6 % 0-1 [facility] Bilirubin [Mass/Vol] 0.60 mg/dL 0.20-1.00 [facility] Comment on above: For patients on eltr ombopag therapy, use of Dimension [place] TBIL is not recommended. Chloride [Moles/Vol] 104 mmol/L 98-107 [facility] Eosinophils/100 WBC (Bld) 3.4 % 0-5 [facility] Glucose [Mass/Vol] 337 mg/dL 74-106 [facility] Comment on above: Glucose result great er than or equal to 200 mg/dLsuggests DIABETES MELLITUS per A.D.A. criteria. Neutrophils (Bld) [#/Vol] 4.6 10*3/uL 2.0-7.7 [facility] Neutrophils/100 WBC (Bld) 67.1 % 47-70 [facility] Potassium [Moles/Vol] 3.4 mmol/L 3.5-5.1 [facility] Protein [Mass/Vol] 6.7 g/dL 6.4-8.2 [facility] Sodium [Moles/Vol] 139 mmol/L 136-145 [facility] WBC (Bld) [#/Vol] 6.8 10*3/uL 4.4-11.0 [facility] Bilirubin Test strip Ql (U)O rdered By: Dr. Wu on 12-11-2022 Bilirubin Ql (U) Negative Negative [facility] Blood erythrocytes count (nu mber/volume)Ordered By: Dr. Wu on 12-11-2022 RBC (Bld) [#/Vol] 5.09 10*6/uL 4.6-6.2 [facility] Blood hemoglobin measurement (mass/volume)Ordered By: Dr. Wu on 12-11-2022 Hemoglobin (Bld) [Mass/Vol] 14.4 g/dL 13.0-16.5 [facility] Blood lymphocytes/100 leukoc ytesOrdered By: Dr. Wu on 12-11-2022 Lymphocytes/100 WBC (Bld) 22.4 % 19-41 [facility] Blood monocytes/100 leukocyt esOrdered By: Dr. Wu on 12-11-2022 Monocytes/100 WBC (Bld) 6.1 % 0-10 [facility] Blood platelet mean volumeOr dered By: Dr. Wu on 12-11-2022 Platelet mean volume (Bld) [Entitic vol] 9.5 fL 6.2-12.0 [facility] Determination of erythrocyte mean corpuscular volume (MCV)Ordered By: Dr. Wu on 12-11-2022 MCV (RBC) [Entitic vol] 82.3 fL 80-94 [facility] Glucose Glucometer (BldC) [M ass/Vol]Ordered By: Dr. Wu on 12-11-2022 Glucose [Mass/Vol] 272 mg/dL 74-106 [facility] Comment on above: MANAGEMENT OF PATIEN T CARE PER NURSING PROTOCOL Hematocrit Auto (Bld) [Volum e fraction]Ordered By: Dr. Wu on 12-11-2022 Hematocrit (Bld) [Volume fraction] 41.9 % 40-54 [facility] Influenza virus A and B and SARS-CoV-2 (COVID-19) Ag panel - Upper respiratory specimOrdered By: Dr. Wu on 12-11-2022 SARS-CoV-2 (COVID-19) RNA IOANA+probe Ql (Resp) [facility] Ketones Test strip Ql (U)Ord ered By: Dr. Wu on 12-11-2022 Ketones Ql (U) 5 mg/dl Negative [facility] Laboratory - Chemistry and C hemistry - challengeOrdered By: Dr. Wu on 12-11-2022 ALP [Catalytic activity/Vol] 72 U/L 45-117 [facility] ALT [Catalytic activity/Vol] 12 U/L 16-61 [facility] CO2 [Moles/Vol] 28.0 mmol/L 21.0-32.0 [facility] Globulin (S) [Mass/Vol] 3.2 g/dL 2.2-4.2 [facility] Urea nitrogen/Creatinine [Mass ratio] 8.6 mg/mg 10-20 [facility] Laboratory - Drug toxicology Ordered By: Dr. Wu on 12-11-2022 Amphetamines Ql (U) Negative <1000 ng/mL [facility] Benzodiazepines Ql (U) Negative < 200 ng/mL [facility] Cannabinoids Screen Ql (U) Negative < 50 ng/mL [facility] Cocaine Ql (U) Negative < 300 ng/mL [facility] Opiates Ql (U) Negative < 300 ng/mL [facility] Laboratory - Hematology and Cell countsOrdered By: Dr. Wu on 12-11-2022 Erythrocyte distribution width (RBC) [Entitic vol] 38.8 fL 35.1-43.9 [facility] Erythrocyte distribution width (RBC) [Ratio] 13.2 % 11.6-14.6 [facility] Immature granulocytes/100 WBC (Bld) 0.400 % 0.0-0.9 [facility] Comment on above: IG% - Immature Granu locytes (promyelocytes, myelocytes and metamyelocytes) > 1% indicates that a LEFT SHIFT is Present. MCH (RBC) [Entitic mass] 28.3 pg 27.0-32.0 [facility] Nucleated RBC/100 WBC (Bld) [Ratio] 0 % 0-5 [facility] MCHC Auto (RBC) [Mass/Vol]Or dered By: Dr. Wu on 12-11-2022 MCHC (RBC) [Mass/Vol] 34.4 g/dL 32-36 [facility] Mucus LM Ql (Urine sed)Order ed By: Dr. Wu on 12-11-2022 Mucus Ql (Urine sed) RARE /hpf [facility] Nitrite Test strip Ql (U)Ord ered By: Dr. Wu on 12-11-2022 Nitrite Ql (U) Negative Negative [facility] No Panel InformationOrdered By: Dr. Wu on 12-11-2022 MDMA (Ecstasy) Screen Negative < 500 ng/mL [facility] Urine Barbiturates Screen Negative < 200 ng/mL [facility] Urine Drug Screen Comment [facility] Comment on above: CONFIRMATORY TESTING FOR ALL POSITIVE URINE DRUG SCREENRESULTS WILL ONLY BE SENT OUT UPON PHYSICIAN ORDER. VISTA Urine Drug Screen methods provide only preliminaryanalytical test results. A more specific alternate chemicalmethod must be used in order to obtain a confirmedanalytical result. Gas chromatography/mass spectrometery(GC/MS) is the preferred confirmatory method. Clinicalconsideration and professional judgement should be appliedto any drug of abuse test result, particularly whenpreliminary positive results are used. URINE TCA TESTING MUST BE ORDERED SEPARATELY. USE TESTMNEMONIC: [facility] Urine Methadone Screen Negative < 300 ng/mL [facility] Estimated Creatinine Clearance Calc 103.79 ml/min [facility] Estimated GFR (MDRD) Amer 105 mL/min >60 [facility] Comment on above: GFR Calc Estimated GFR (MDRD) Non-Af Amer 87 mL/min >60 [facility] Comment on above: Non- GFR Calc Ethyl Alcohol Level < 3.0 mg/dL [facility] Comment on above: The serum:whole bloo d ethanol ratio is approximately 1.14and varies slightly with hematocrit. Medical Alcohol reference interval and critical value innon-tolerant individuals; 50 - 100 Impairment 100 Intoxication 100 - 250 Severe Poisoning 250 - 400 Deep/possible fatal coma Troponin I High Sensitivity 6 pg/mL 3.0-78.0 [facility] Comment on above: Please Note: New Kira t Units and Gender Specific Reference Ranges. For more information see Policy Stat Procedure [place] High Sensitivity Troponin (TNIH) and attachments. Platelets bldOrdered By: Dr. Wu on 12-11-2022 Platelets (Bld) [#/Vol] 10*3/uL 150-450 [facility] Protein Test strip Ql (U)Ord ered By: Dr. Wu on 12-11-2022 Protein Ql (U) 15 mg/dl Negative [facility] Serum or plasma albumin yayo urement (mass/volume)Ordered By: Dr. Wu on 12-11-2022 Albumin [Mass/Vol] 3.5 g/dL 3.2-5.0 [facility] Serum or plasma albumin/glob ulin mass ratioOrdered By: Dr. Wu on 12-11-2022 Albumin/Globulin [Mass ratio] 1.1 {ratio} 0.9-2.4 [facility] Serum or plasma calcium yayo urement (mass/volume)Ordered By: Dr. Wu on 12-11-2022 Calcium [Mass/Vol] 8.6 mg/dL 8.5-10.1 [facility] Serum or plasma creatinine m easurement (mass/volume)Ordered By: Dr. Wu on 12-11-2022 Creatinine [Mass/Vol] 0.93 mg/dL 0.70-1.30 [facility] Comment on above: The validity of the calculated GFR & GFRAA in patients over 70 years has not been determined. Clinical correlation is essential. Serum or plasma urea nitroge n measurement (mass/volume)Ordered By: Dr. Wu on 12-11-2022 Urea nitrogen [Mass/Vol] 8 mg/dL 7-18 [facility] Squamous epithelial cells de tection in urine sediment by light microscopyOrdered By: Dr. Wu on 12-11-2022 Epithelial cells.squamous LM Ql (Urine sed) 0 SEEN /hpf 0-5 [facility] Thin prep Papanicolaou smear with manual screeningOrdered By: Dr. Wu on 12-11-2022 Thin prep Papanicolaou smear with manual screening 5 U/L 15-37 [facility] Thin prep Papanicolaou smear with manual screening 7 5-15 [facility] Urine blood detectionOrdered By: Dr. Wu on 12-11-2022 RBC Ql (U) Negative Negative [facility] RBC Ql (U) 0 SEEN /hpf 0-5 [facility] Urine clarityOrdered By: Dr. Wu on 12-11-2022 Clarity (U) Clear Clear [facility] Urine color determinationOrd ered By: Dr. Wu on 12-11-2022 Color (U) Yellow Yellow [facility] Urine glucose detectionOrder ed By: Dr. Wu on 12-11-2022 Glucose Ql (U) 1000 mg/dl Normal [facility] Urine leukocyte esterase det ection by dipstickOrdered By: Dr. Wu on 12-11-2022 Leukocyte esterase Test strip Ql (U) Negative Negative [facility] Urine pHOrdered By: Dr. Humza ya on 12-11-2022 pH (U) 6.0 [pH] 5.0 - 8.0 [facility] Urine phencyclidine (PCP) de tectionOrdered By: Dr. Wu on 12-11-2022 Phencyclidine Ql (U) Negative < 25 ng/mL [facility] Urine sediment bacteria coun t by microscopy (number/high power field)Ordered By: Dr. Wu on 12-11-2022 Bacteria LM.HPF (Urine sed) [#/Area] 0 /[HPF] None Seen [facility] Urine specific gravity measu rementOrdered By: Dr. Wu on 12-11-2022 Specific gravity (U) [Rel density] 1.015 1.002-1.030 [facility] Urobilinogen Auto test strip Ql (U)Ordered By: Dr. Wu on 12-11-2022 Urobilinogen Ql (U) Normal mg/dl Normal [facility] Absolute lymphocyte countOrd ered By: Dr. Castillo on 12-10-2022 Lymphocytes Auto (Unsp spec) [#/Vol] 1.79 10*3/uL 0.83-4.51 [facility] Basophil percentageOrdered B y: Dr. Castillo on 12-10-2022 Basophil percentage 0 SEEN /hpf 0-5 [facility] Basophils/100 WBC (Bld) 0.5 % 0-1 [facility] Chloride [Moles/Vol] 106 mmol/L 98-107 [facility] Eosinophils/100 WBC (Bld) 3.3 % 0-5 [facility] Glucose [Mass/Vol] 250 mg/dL 74-106 [facility] Comment on above: Glucose result great er than or equal to 200 mg/dLsuggests DIABETES MELLITUS per A.D.A. criteria. Neutrophils (Bld) [#/Vol] 5.0 10*3/uL 2.0-7.7 [facility] Neutrophils/100 WBC (Bld) 64.8 % 47-70 [facility] Potassium [Moles/Vol] 3.7 mmol/L 3.5-5.1 [facility] Sodium [Moles/Vol] 141 mmol/L 136-145 [facility] WBC (Bld) [#/Vol] 7.7 10*3/uL 4.4-11.0 [facility] Bilirubin Test strip Ql (U)O rdered By: Dr. Castillo on 12-10-2022 Bilirubin Ql (U) Negative Negative [facility] Blood erythrocytes count (nu mber/volume)Ordered By: Dr. Castillo on 12-10-2022 RBC (Bld) [#/Vol] 5.31 10*6/uL 4.6-6.2 [facility] Blood hemoglobin measurement (mass/volume)Ordered By: Dr. Castillo on 12-10-2022 Hemoglobin (Bld) [Mass/Vol] 15.1 g/dL 13.0-16.5 [facility] Blood lymphocytes/100 leukoc ytesOrdered By: Dr. Castillo on 12-10-2022 Lymphocytes/100 WBC (Bld) 23.4 % 19-41 [facility] Blood monocytes/100 leukocyt esOrdered By: Dr. Castillo on 12-10-2022 Monocytes/100 WBC (Bld) 7.3 % 0-10 [facility] Blood platelet mean volumeOr dered By: Dr. Castillo on 12-10-2022 Platelet mean volume (Bld) [Entitic vol] 9.3 fL 6.2-12.0 [facility] Determination of erythrocyte mean corpuscular volume (MCV)Ordered By: Dr. Castillo on 12-10-2022 MCV (RBC) [Entitic vol] 81.7 fL 80-94 [facility] Glucose Glucometer (BldC) [M ass/Vol]Ordered By: Dr. Castillo on 12-10-2022 Glucose [Mass/Vol] 261 mg/dL 74-106 [facility] Comment on above: MANAGEMENT OF PATIEN T CARE PER NURSING PROTOCOL Hematocrit Auto (Bld) [Volum e fraction]Ordered By: Dr. Castillo on 12-10-2022 Hematocrit (Bld) [Volume fraction] 43.4 % 40-54 [facility] Ketones Test strip Ql (U)Ord ered By: Dr. Castillo on 12-10-2022 Ketones Ql (U) Negative Negative [facility] Laboratory - Chemistry and C hemistry - challengeOrdered By: Dr. Castillo on 12-10-2022 CO2 [Moles/Vol] 30.0 mmol/L 21.0-32.0 [facility] Urea nitrogen/Creatinine [Mass ratio] 9.8 mg/mg 10-20 [facility] Laboratory - Hematology and Cell countsOrdered By: Dr. Castillo on 12-10-2022 Erythrocyte distribution width (RBC) [Entitic vol] 39.1 fL 35.1-43.9 [facility] Erythrocyte distribution width (RBC) [Ratio] 13.3 % 11.6-14.6 [facility] Immature granulocytes/100 WBC (Bld) 0.700 % 0.0-0.9 [facility] Comment on above: IG% - Immature Granu locytes (promyelocytes, myelocytes and metamyelocytes) > 1% indicates that a LEFT SHIFT is Present. MCH (RBC) [Entitic mass] 28.4 pg 27.0-32.0 [facility] Nucleated RBC/100 WBC (Bld) [Ratio] 0 % 0-5 [facility] MCHC Auto (RBC) [Mass/Vol]Or dered By: Dr. Castillo on 12-10-2022 MCHC (RBC) [Mass/Vol] 34.8 g/dL 32-36 [facility] Mucus LM Ql (Urine sed)Order ed By: Dr. Castillo on 12-10-2022 Mucus Ql (Urine sed) 0 SEEN /hpf [facility] Nitrite Test strip Ql (U)Ord ered By: Dr. Castillo on 12-10-2022 Nitrite Ql (U) Negative Negative [facility] No Panel InformationOrdered By: Dr. Castillo on 12-10-2022 Estimated Creatinine Clearance Calc 94.63 ml/min [facility] Estimated GFR (MDRD) Amer 95 mL/min >60 [facility] Comment on above: GFR Calc Estimated GFR (MDRD) Non-Af Amer 79 mL/min >60 [facility] Comment on above: Non- GFR Calc Platelets bldOrdered By: Dr. Castillo on 12-10-2022 Platelets (Bld) [#/Vol] 251 10*3/uL 150-450 [facility] Protein Test strip Ql (U)Ord ered By: Dr. Castillo on 12-10-2022 Protein Ql (U) 15 mg/dl Negative [facility] Serum or plasma calcium yayo urement (mass/volume)Ordered By: Dr. Castillo on 12-10-2022 Calcium [Mass/Vol] 9.3 mg/dL 8.5-10.1 [facility] [place], [place] Serum or plasma creatinine m easurement (mass/volume)Ordered By: Dr. Castillo on 12-10-2022 Creatinine [Mass/Vol] 1.02 mg/dL 0.70-1.30 [facility] Comment on above: The validity of the calculated GFR & GFRAA in patients over 70 years has not been determined. Clinical correlation is essential. Serum or plasma urea nitroge n measurement (mass/volume)Ordered By: Dr. Castillo on 12-10-2022 Urea nitrogen [Mass/Vol] 10 mg/dL 7-18 [facility] Squamous epithelial cells de tection in urine sediment by light microscopyOrdered By: Dr. Castillo on 12-10-2022 Epithelial cells.squamous LM Ql (Urine sed) 0-5 SEEN /hpf 0-5 [facility] Thin prep Papanicolaou smear with manual screeningOrdered By: Dr. Castillo on 12-10-2022 Thin prep Papanicolaou smear with manual screening 5 5-15 [facility] Urine blood detectionOrdered By: Dr. Castillo on 12-10-2022 RBC Ql (U) Negative Negative [facility] RBC Ql (U) 0 SEEN /hpf 0-5 [facility] Urine clarityOrdered By: Dr. Castillo on 12-10-2022 Clarity (U) Sl. Cloudy Clear [facility] Urine color determinationOrd ered By: Dr. Castillo on 12-10-2022 Color (U) Yellow Yellow [facility] Urine glucose detectionOrder ed By: Dr. Castillo on 12-10-2022 Glucose Ql (U) 1000 mg/dl Normal [facility] Urine leukocyte esterase det ection by dipstickOrdered By: Dr. Castillo on 12-10-2022 Leukocyte esterase Test strip Ql (U) Negative Negative [facility] Urine pHOrdered By: Dr. Castillo o n 12-10-2022 pH (U) 6.0 [pH] 5.0 - 8.0 [facility] Urine sediment bacteria coun t by microscopy (number/high power field)Ordered By: Dr. Castillo on 12-10-2022 Bacteria LM.HPF (Urine sed) [#/Area] 0 /[HPF] None Seen [facility] Urine specific gravity measu rementOrdered By: Dr. Castillo on 12-10-2022 Specific gravity (U) [Rel density] 1.015 1.002-1.030 [facility] Urobilinogen Auto test strip Ql (U)Ordered By: Dr. Castillo on 12-10-2022 Urobilinogen Ql (U) Normal mg/dl Normal [facility] Basophil percentageOrdered B y: Dr. Calle on 11-25-2022 Chloride [Moles/Vol] 102 mmol/L 98-107 [facility] Glucose [Mass/Vol] 429 mg/dL 74-106 [facility] Comment on above: Glucose result great er than or equal to 200 mg/dLsuggests DIABETES MELLITUS per A.D.A. criteria. Potassium [Moles/Vol] 4.0 mmol/L 3.5-5.1 [facility] Sodium [Moles/Vol] 136 mmol/L 136-145 [facility] Glucose Glucometer (BldC) [M ass/Vol]Ordered By: Dr. Calle on 11-25-2022 Glucose [Mass/Vol] 380 mg/dL 74-106 [facility] Comment on above: MANAGEMENT OF PATIEN T CARE PER NURSING PROTOCOL Laboratory - Chemistry and C hemistry - challengeOrdered By: Dr. Calle on 11-25-2022 CO2 [Moles/Vol] 28.0 mmol/L 21.0-32.0 [facility] Urea nitrogen/Creatinine [Mass ratio] 11.3 mg/mg 10- [facility] No Panel InformationOrdered By: Dr. Calle on 11-25-2022 Estimated Creatinine Clearance Calc 99.51 ml/min [facility] Estimated GFR (MDRD) Amer 101 mL/min >60 [facility] Comment on above: GFR Calc Estimated GFR (MDRD) Non-Af Amer 83 mL/min >60 [facility] Comment on above: Non- GFR Calc Serum or plasma calcium yayo urement (mass/volume)Ordered By: Dr. Calle on 11-25-2022 Calcium [Mass/Vol] 9.0 mg/dL 8.5-10.1 [facility] Serum or plasma creatinine m easurement (mass/volume)Ordered By: Dr. Calle on 11-25-2022 Creatinine [Mass/Vol] 0.97 mg/dL 0.70-1.30 [facility] Comment on above: The validity of the calculated GFR & GFRAA in patients over 70 years has not been determined. Clinical correlation is essential. Serum or plasma urea nitroge n measurement (mass/volume)Ordered By: Dr. Calle on 11-25-2022 Urea nitrogen [Mass/Vol] 11 mg/dL 7-18 [facility] Thin prep Papanicolaou smear with manual screeningOrdered By: Dr. Calle on 11-25-2022 Thin prep Papanicolaou smear with manual screening 6 5-15 [facility] Influenza virus A and B and SARS-CoV-2 (COVID-19) Ag panel - Upper respiratory specimOrdered By: Johann Lemons on 10-30-2022 SARS-CoV-2 (COVID-19) RNA IOANA+probe Ql (Resp) [facility] Absolute lymphocyte countOrd ered By: ED PROVIDER on 10-29-2022 Lymphocytes Auto (Unsp spec) [#/Vol] 1.87 10*3/uL 0.83-4.51 [facility] Basophil percentageOrdered B y: ED PROVIDER on 10-29-2022 Basophils/100 WBC (Bld) 0.3 % 0-1 [facility] Chloride [Moles/Vol] 104 mmol/L 98-107 [facility] Eosinophils/100 WBC (Bld) 2.0 % 0-5 [facility] Glucose [Mass/Vol] 361 mg/dL 74-106 [facility] Comment on above: Glucose result great er than or equal to 200 mg/dLsuggests DIABETES MELLITUS per A.D.A. criteria. Neutrophils (Bld) [#/Vol] 8.6 10*3/uL 2.0-7.7 [facility] Neutrophils/100 WBC (Bld) 75.0 % 47-70 [facility] Potassium [Moles/Vol] 4.0 mmol/L 3.5-5.1 [facility] Sodium [Moles/Vol] 136 mmol/L 136-145 [facility] WBC (Bld) [#/Vol] 11.5 10*3/uL 4.4-11.0 [facility] Blood erythrocytes count (nu mber/volume)Ordered By: ED PROVIDER on 10-29-2022 RBC (Bld) [#/Vol] 5.15 10*6/uL 4.6-6.2 [facility] Blood hemoglobin measurement (mass/volume)Ordered By: ED PROVIDER on 10-29-2022 Hemoglobin (Bld) [Mass/Vol] 14.8 g/dL 13.0-16.5 [facility] Blood lymphocytes/100 leukoc ytesOrdered By: ED PROVIDER on 10-29-2022 Lymphocytes/100 WBC (Bld) 16.2 % 19-41 [facility] Blood monocytes/100 leukocyt esOrdered By: ED PROVIDER on 10-29-2022 Monocytes/100 WBC (Bld) 6.2 % 0-10 [facility] Blood platelet mean volumeOr dered By: ED PROVIDER on 10-29-2022 Platelet mean volume (Bld) [Entitic vol] 9.5 fL 6.2-12.0 [facility] Determination of erythrocyte mean corpuscular volume (MCV)Ordered By: ED PROVIDER on 10-29-2022 MCV (RBC) [Entitic vol] 81.9 fL 80-94 [facility] Hematocrit Auto (Bld) [Volum e fraction]Ordered By: ED PROVIDER on 10-29-2022 Hematocrit (Bld) [Volume fraction] 42.2 % 40-54 [facility] Laboratory - Chemistry and C hemistry - challengeOrdered By: ED PROVIDER on 10-29-2022 CO2 [Moles/Vol] 26.0 mmol/L 21.0-32.0 [facility] Urea nitrogen/Creatinine [Mass ratio] 14.8 mg/mg 10-20 [facility] Laboratory - Chemistry and C hemistry - challengeOrdered By: Johann Lemons on 10-29-2022 Magnesium [Mass/Vol] 1.7 mg/dL 1.6-2.6 [facility] Laboratory - Hematology and Cell countsOrdered By: ED PROVIDER on 10-29-2022 Erythrocyte distribution width (RBC) [Entitic vol] 38.6 fL 35.1-43.9 [facility] Erythrocyte distribution width (RBC) [Ratio] 13.1 % 11.6-14.6 [facility] Immature granulocytes/100 WBC (Bld) 0.300 % 0.0-0.9 [facility] Comment on above: IG% - Immature Granu locytes (promyelocytes, myelocytes and metamyelocytes) > 1% indicates that a LEFT SHIFT is Present. MCH (RBC) [Entitic mass] 28.7 pg 27.0-32.0 [facility] Nucleated RBC/100 WBC (Bld) [Ratio] 0 % 0-5 [facility] MCHC Auto (RBC) [Mass/Vol]Or dered By: ED PROVIDER on 10-29-2022 MCHC (RBC) [Mass/Vol] 35.1 g/dL 32-36 [facility] No Panel InformationOrdered By: ED PROVIDER on 10-29-2022 Estimated Creatinine Clearance Calc 83.93 ml/min [facility] Estimated GFR (MDRD) Amer 83 mL/min >60 [facility] Comment on above: GFR Calc Estimated GFR (MDRD) Non-Af Amer 68 mL/min >60 [facility] Comment on above: Non- GFR Calc Platelets bldOrdered By: ED PROVIDER on 10-29-2022 Platelets (Bld) [#/Vol] 224 10*3/uL 150-450 [facility] Serum or plasma calcium yayo urement (mass/volume)Ordered By: ED PROVIDER on 10-29-2022 Calcium [Mass/Vol] 8.9 mg/dL 8.5-10.1 [facility] Serum or plasma creatinine m easurement (mass/volume)Ordered By: ED PROVIDER on 10-29-2022 Creatinine [Mass/Vol] 1.15 mg/dL 0.70-1.30 [facility] Comment on above: The validity of the calculated GFR & GFRAA in patients over 70 years has not been determined. Clinical correlation is essential. Serum or plasma urea nitroge n measurement (mass/volume)Ordered By: ED PROVIDER on 10-29-2022 Urea nitrogen [Mass/Vol] 17 mg/dL 7-18 [facility] Thin prep Papanicolaou smear with manual screeningOrdered By: ED PROVIDER on 10-29-2022 Thin prep Papanicolaou smear with manual screening 6 5-15 [facility] Absolute lymphocyte countOrd ered By: Dr. Wu on 09-18-2022 Lymphocytes Auto (Unsp spec) [#/Vol] 1.62 10*3/uL 0.83-4.51 [facility] Basophil percentageOrdered B y: Dr. Wu on 09-18-2022 Basophils/100 WBC (Bld) 0.5 % 0-1 [facility] Bilirubin [Mass/Vol] 0.50 mg/dL 0.20-1.00 [facility] Comment on above: For patients on eltr ombopag therapy, use of Dimension [place] TBIL is not recommended. Chloride [Moles/Vol] 106 mmol/L 98-107 [facility] Eosinophils/100 WBC (Bld) 3.5 % 0-5 [facility] Glucose [Mass/Vol] 262 mg/dL 74-106 [facility] Comment on above: Glucose result great er than or equal to 200 mg/dLsuggests DIABETES MELLITUS per A.D.A. criteria. Neutrophils (Bld) [#/Vol] 5.4 10*3/uL 2.0-7.7 [facility] Neutrophils/100 WBC (Bld) 68.0 % 47-70 [facility] Potassium [Moles/Vol] 3.7 mmol/L 3.5-5.1 [facility] Protein [Mass/Vol] 7.1 g/dL 6.4-8.2 [facility] Sodium [Moles/Vol] 137 mmol/L 136-145 [facility] WBC (Bld) [#/Vol] 7.9 10*3/uL 4.4-11.0 [facility] Blood erythrocytes count (nu mber/volume)Ordered By: Dr. Wu on 09-18-2022 RBC (Bld) [#/Vol] 4.87 10*6/uL 4.6-6.2 [facility] Blood hemoglobin measurement (mass/volume)Ordered By: Dr. Wu on 09-18-2022 Hemoglobin (Bld) [Mass/Vol] 14.6 g/dL 13.0-16.5 [facility] Blood lymphocytes/100 leukoc ytesOrdered By: Dr. Wu on 09-18-2022 Lymphocytes/100 WBC (Bld) 20.4 % 19-41 [facility] Blood monocytes/100 leukocyt esOrdered By: Dr. Wu on 09-18-2022 Monocytes/100 WBC (Bld) 7.2 % 0-10 [facility] Blood platelet mean volumeOr dered By: Dr. Wu on 09-18-2022 Platelet mean volume (Bld) [Entitic vol] 9.1 fL 6.2-12.0 [facility] Determination of erythrocyte mean corpuscular volume (MCV)Ordered By: Dr. Wu on 09-18-2022 MCV (RBC) [Entitic vol] 83.2 fL 80-94 [facility] Hematocrit Auto (Bld) [Volum e fraction]Ordered By: Dr. Wu on 09-18-2022 Hematocrit (Bld) [Volume fraction] 40.5 % 40-54 [facility] Laboratory - Chemistry and C hemistry - challengeOrdered By: Dr. Wu on 09-18-2022 ALP [Catalytic activity/Vol] 75 U/L 45-117 [facility] ALT [Catalytic activity/Vol] 16 U/L 16-61 [facility] CO2 [Moles/Vol] 24.0 mmol/L 21.0-32.0 [facility] Globulin (S) [Mass/Vol] 3.5 g/dL 2.2-4.2 [facility] Lipase [Catalytic activity/Vol] 64 U/L 73-393 [facility] Urea nitrogen/Creatinine [Mass ratio] 16.3 mg/mg 10-20 [facility] Laboratory - Hematology and Cell countsOrdered By: Dr. Wu on 09-18-2022 Erythrocyte distribution width (RBC) [Entitic vol] 39.2 fL 35.1-43.9 [facility] Erythrocyte distribution width (RBC) [Ratio] 13.1 % 11.6-14.6 [facility] Immature granulocytes/100 WBC (Bld) 0.400 % 0.0-0.9 [facility] Comment on above: IG% - Immature Granu locytes (promyelocytes, myelocytes and metamyelocytes) > 1% indicates that a LEFT SHIFT is Present. MCH (RBC) [Entitic mass] 30.0 pg 27.0-32.0 [facility] Nucleated RBC/100 WBC (Bld) [Ratio] 0 % 0-5 [facility] MCHC Auto (RBC) [Mass/Vol]Or dered By: Dr. Wu on 09-18-2022 MCHC (RBC) [Mass/Vol] 36.0 g/dL 32-36 [facility] No Panel InformationOrdered By: Dr. Wu on 09-18-2022 Estimated Creatinine Clearance Calc 98.49 ml/min [facility] Estimated GFR (MDRD) Amer 100 mL/min >60 [facility] Comment on above: GFR Calc Estimated GFR (MDRD) Non-Af Amer 82 mL/min >60 [facility] Comment on above: Non- GFR Calc Ethyl Alcohol Level < 3.0 mg/dL [facility] Comment on above: The serum:whole bloo d ethanol ratio is approximately 1.14and varies slightly with hematocrit. Medical Alcohol reference interval and critical value innon-tolerant individuals; 50 - 100 Impairment 100 Intoxication 100 - 250 Severe Poisoning 250 - 400 Deep/possible fatal coma Platelets bldOrdered By: Dr. Wu on 09-18-2022 Platelets (Bld) [#/Vol] 188 10*3/uL 150-450 [facility] Serum or plasma albumin yayo urement (mass/volume)Ordered By: Dr. Wu on 09-18-2022 Albumin [Mass/Vol] 3.6 g/dL 3.2-5.0 [facility] Serum or plasma albumin/glob ulin mass ratioOrdered By: Dr. Wu on 09-18-2022 Albumin/Globulin [Mass ratio] 1.0 {ratio} 0.9-2.4 [facility] Serum or plasma calcium yayo urement (mass/volume)Ordered By: Dr. Wu on 09-18-2022 Calcium [Mass/Vol] 9.1 mg/dL 8.5-10.1 [facility] Serum or plasma creatinine m easurement (mass/volume)Ordered By: Dr. Wu on 09-18-2022 Creatinine [Mass/Vol] 0.98 mg/dL 0.70-1.30 [facility] Comment on above: The validity of the calculated GFR & GFRAA in patients over 70 years has not been determined. Clinical correlation is essential. Serum or plasma urea nitroge n measurement (mass/volume)Ordered By: Dr. Wu on 09-18-2022 Urea nitrogen [Mass/Vol] 16 mg/dL 7-18 [facility] Thin prep Papanicolaou smear with manual screeningOrdered By: Dr. Wu on 09-18-2022 Thin prep Papanicolaou smear with manual screening 9 U/L 15-37 [facility] Thin prep Papanicolaou smear with manual screening 7 5-15 [facility] Absolute lymphocyte countOrd ered By: Dr. Mathew on 08-07-2022 Lymphocytes Auto (Unsp spec) [#/Vol] 1.92 10*3/uL 0.83-4.51 [facility] Basophil percentageOrdered B y: Dr. Mathew on 08-07-2022 Basophil percentage 0 SEEN /hpf 0-5 [facility] Basophils/100 WBC (Bld) 0.3 % 0-1 [facility] Bilirubin [Mass/Vol] 0.40 mg/dL 0.20-1.00 [facility] Comment on above: For patients on eltr ombopag therapy, use of Dimension [place] TBIL is not recommended. Chloride [Moles/Vol] 108 mmol/L 98-107 [facility] Eosinophils/100 WBC (Bld) 3.1 % 0-5 [facility] Glucose [Mass/Vol] 194 mg/dL 74-106 [facility] Comment on above: Fasting Glucose resu lt greater than or equal to 126 mg/dL suggests DIABETES MELLITUS per A.D.A. criteria. Neutrophils (Bld) [#/Vol] 6.2 10*3/uL 2.0-7.7 [facility] Neutrophils/100 WBC (Bld) 68.4 % 47-70 [facility] Potassium [Moles/Vol] 3.6 mmol/L 3.5-5.1 [facility] Protein [Mass/Vol] 7.5 g/dL 6.4-8.2 [facility] Sodium [Moles/Vol] 142 mmol/L 136-145 [facility] WBC (Bld) [#/Vol] 9.1 10*3/uL 4.4-11.0 [facility] Bilirubin Test strip Ql (U)O rdered By: Dr. Mathew on 08-07-2022 Bilirubin Ql (U) Negative Negative [facility] Blood erythrocytes count (nu mber/volume)Ordered By: Dr. Mathew on 08-07-2022 RBC (Bld) [#/Vol] 5.01 10*6/uL 4.6-6.2 [facility] Blood hemoglobin measurement (mass/volume)Ordered By: Dr. Mathew on 08-07-2022 Hemoglobin (Bld) [Mass/Vol] 14.4 g/dL 13.0-16.5 [facility] Blood lymphocytes/100 leukoc ytesOrdered By: Dr. Mathew on 08-07-2022 Lymphocytes/100 WBC (Bld) 21.1 % 19-41 [facility] Blood monocytes/100 leukocyt esOrdered By: Dr. Mathew on 08-07-2022 Monocytes/100 WBC (Bld) 6.7 % 0-10 [facility] Blood platelet mean volumeOr dered By: Dr. Mathew on 08-07-2022 Platelet mean volume (Bld) [Entitic vol] 9.5 fL 6.2-12.0 [facility] Determination of erythrocyte mean corpuscular volume (MCV)Ordered By: Dr. Mathew on 08-07-2022 MCV (RBC) [Entitic vol] 84.0 fL 80-94 [facility] Glucose Glucometer (BldC) [M ass/Vol]Ordered By: Dr. Mathew on 08-07-2022 Glucose [Mass/Vol] 193 mg/dL 74-106 [facility] Comment on above: MANAGEMENT OF PATIEN T CARE PER NURSING PROTOCOL Hematocrit Auto (Bld) [Volum e fraction]Ordered By: Dr. Mathew on 08-07-2022 Hematocrit (Bld) [Volume fraction] 42.1 % 40-54 [facility] Ketones Test strip Ql (U)Ord ered By: Dr. Mathew on 08-07-2022 Ketones Ql (U) Negative Negative [facility] Laboratory - Chemistry and C hemistry - challengeOrdered By: Dr. Mathew on 08-07-2022 ALP [Catalytic activity/Vol] 77 U/L 45-117 [facility] ALT [Catalytic activity/Vol] 16 U/L 16-61 [facility] CO2 [Moles/Vol] 28.0 mmol/L 21.0-32.0 [facility] Globulin (S) [Mass/Vol] 3.6 g/dL 2.2-4.2 [facility] Urea nitrogen/Creatinine [Mass ratio] 8.7 mg/mg 10-20 [facility] Laboratory - Hematology and Cell countsOrdered By: Dr. Mathew on 08-07-2022 Erythrocyte distribution width (RBC) [Entitic vol] 42.5 fL 35.1-43.9 [facility] Erythrocyte distribution width (RBC) [Ratio] 14.0 % 11.6-14.6 [facility] Immature granulocytes/100 WBC (Bld) 0.400 % 0.0-0.9 [facility] Comment on above: IG% - Immature Granu locytes (promyelocytes, myelocytes and metamyelocytes) > 1% indicates that a LEFT SHIFT is Present. MCH (RBC) [Entitic mass] 28.7 pg 27.0-32.0 [facility] Nucleated RBC/100 WBC (Bld) [Ratio] 0 % 0-5 [facility] MCHC Auto (RBC) [Mass/Vol]Or dered By: Dr. Mathew on 08-07-2022 MCHC (RBC) [Mass/Vol] 34.2 g/dL 32-36 [facility] Mucus LM Ql (Urine sed)Order ed By: Dr. Mathew on 08-07-2022 Mucus Ql (Urine sed) 0 SEEN /hpf [facility] Nitrite Test strip Ql (U)Ord ered By: Dr. Mathew on 08-07-2022 Nitrite Ql (U) Negative Negative [facility] No Panel InformationOrdered By: Dr. Mathew on 08-07-2022 Estimated Creatinine Clearance Calc 104.92 ml/min [facility] Estimated GFR (MDRD) Amer 107 mL/min >60 [facility] Comment on above: GFR Calc Estimated GFR (MDRD) Non-Af Amer 89 mL/min >60 [facility] Comment on above: Non- GFR Calc Platelets bldOrdered By: Dr. Mathew on 08-07-2022 Platelets (Bld) [#/Vol] 227 10*3/uL 150-450 [facility] Protein Test strip Ql (U)Ord ered By: Dr. Mathew on 08-07-2022 Protein Ql (U) Negative Negative [facility] Serum or plasma albumin yayo urement (mass/volume)Ordered By: Dr. Mathew on 08-07-2022 Albumin [Mass/Vol] 3.9 g/dL 3.2-5.0 [facility] Serum or plasma albumin/glob ulin mass ratioOrdered By: Dr. Mathew on 08-07-2022 Albumin/Globulin [Mass ratio] 1.1 {ratio} 0.9-2.4 [facility] Serum or plasma calcium yayo urement (mass/volume)Ordered By: Dr. Mathew on 08-07-2022 Calcium [Mass/Vol] 9.1 mg/dL 8.5-10.1 [facility] Serum or plasma creatinine m easurement (mass/volume)Ordered By: Dr. Mathew on 08-07-2022 Creatinine [Mass/Vol] 0.92 mg/dL 0.70-1.30 [facility] Comment on above: The validity of the calculated GFR & GFRAA in patients over 70 years has not been determined. Clinical correlation is essential. Serum or plasma urea nitroge n measurement (mass/volume)Ordered By: Dr. Mathew on 08-07-2022 Urea nitrogen [Mass/Vol] 8 mg/dL 7-18 [facility] Squamous epithelial cells de tection in urine sediment by light microscopyOrdered By: Dr. Mathew on 08-07-2022 Epithelial cells.squamous LM Ql (Urine sed) 0 SEEN /hpf 0-5 [facility] Thin prep Papanicolaou smear with manual screeningOrdered By: Dr. Mathew on 08-07-2022 Thin prep Papanicolaou smear with manual screening 7 U/L 15-37 [facility] Thin prep Papanicolaou smear with manual screening 6 5-15 [facility] Urine blood detectionOrdered By: Dr. Mathew on 08-07-2022 RBC Ql (U) Negative Negative [facility] RBC Ql (U) 0 SEEN /hpf 0-5 [facility] Urine clarityOrdered By: Dr. Mathew on 08-07-2022 Clarity (U) Clear Clear [facility] Urine color determinationOrd ered By: Dr. Mathew on 08-07-2022 Color (U) Straw Yellow [facility] Urine glucose detectionOrder ed By: Dr. Mathew on 08-07-2022 Glucose Ql (U) Normal mg/dl Normal [facility] Urine leukocyte esterase det ection by dipstickOrdered By: Dr. Mathew on 08-07-2022 Leukocyte esterase Test strip Ql (U) Negative Negative [facility] Urine pHOrdered By: Dr. Sandra aguirre on 08-07-2022 pH (U) 6.0 [pH] 5.0 - 8.0 [facility] Urine sediment bacteria coun t by microscopy (number/high power field)Ordered By: Dr. Mathew on 08-07-2022 Bacteria LM.HPF (Urine sed) [#/Area] 0 /[HPF] None Seen [facility] Urine specific gravity measu rementOrdered By: Dr. Mathew on 08-07-2022 Specific gravity (U) [Rel density] 1.010 1.002-1.030 [facility] Urobilinogen Auto test strip Ql (U)Ordered By: Dr. Mathew on 08-07-2022 Urobilinogen Ql (U) Normal mg/dl Normal [facility] Absolute lymphocyte counton 07-02-2022 Lymphocytes Auto (Unsp spec) [#/Vol] 1.81 10*3/uL 0.83-4.51 [facility] Work Phone: Basophil percentageon 2021 Basophils/100 WBC (Bld) 0.4 % 0-1 [facility] Work Phone: Chloride [Moles/Vol] 107 mmol/L 98-107 [facility] Work Phone: Eosinophils/100 WBC (Bld) 2.5 % 0-5 [facility] Work Phone: Glucose [Mass/Vol] 132 mg/dL 74-106 [facility] Work Phone: Comment on above: Fasting Glucose resu lt greater than or equal to 126 mg/dL suggests DIABETES MELLITUS per A.D.A. criteria. Neutrophils (Bld) [#/Vol] 4.9 10*3/uL 2.0-7.7 [facility] Work Phone: Neutrophils/100 WBC (Bld) 64.6 % 47-70 [facility] Work Phone: Potassium [Moles/Vol] 3.7 mmol/L 3.5-5.1 [facility] Work Phone: [phone] Sodium [Moles/Vol] 142 mmol/L 136-145 [facility] Work Phone: WBC (Bld) [#/Vol] 7.5 10*3/uL 4.4-11.0 [facility] Work Phone: Basophil percentage 0 SEEN /hpf 0-5 [facility] Work Phone: Bilirubin Test strip Ql (U)o n 07-02-2022 Bilirubin Ql (U) Negative Negative [facility] Work Phone: Blood erythrocytes count (nu mber/volume)on 07-02-2022 RBC (Bld) [#/Vol] 5.07 10*6/uL 4.6-6.2 [facility] Work Phone: Blood hemoglobin measurement (mass/volume)on 07-02-2022 Hemoglobin (Bld) [Mass/Vol] 14.5 g/dL 13.0-16.5 [facility] Work Phone: Blood lymphocytes/100 leukoc yteson 07-02-2022 Lymphocytes/100 WBC (Bld) 24.1 % 19-41 [facility] Work Phone: Blood monocytes/100 leukocyt eson 07-02-2022 Monocytes/100 WBC (Bld) 8.1 % 0-10 [facility] Work Phone: Blood platelet mean volumeon 07-02-2022 Platelet mean volume (Bld) [Entitic vol] 9.1 fL 6.2-12.0 [facility] Work Phone: Determination of erythrocyte mean corpuscular volume (MCV)on 07-02-2022 MCV (RBC) [Entitic vol] 82.6 fL 80-94 [facility] Work Phone: Hematocrit Auto (Bld) [Volum e fraction]on 07-02-2022 Hematocrit (Bld) [Volume fraction] 41.9 % 40-54 [facility] Work Phone: Ketones Test strip Ql (U)on 07-02-2022 Ketones Ql (U) Negative Negative [facility] Work Phone: Laboratory - Chemistry and C hemistry - challengeon 07-02-2022 CO2 [Moles/Vol] 30.0 mmol/L 21.0-32.0 [facility] Work Phone: Urea nitrogen/Creatinine [Mass ratio] 16.1 mg/mg 10-20 [facility] Work Phone: Laboratory - Hematology and Cell countson 07-02-2022 Erythrocyte distribution width (RBC) [Entitic vol] 40.1 fL 35.1-43.9 [facility] Work Phone: Erythrocyte distribution width (RBC) [Ratio] 13.5 % 11.6-14.6 [facility] Work Phone: Immature granulocytes/100 WBC (Bld) 0.300 % 0.0-0.9 [facility] Work Phone: Comment on above: IG% - Immature Granu locytes (promyelocytes, myelocytes and metamyelocytes) > 1% indicates that a LEFT SHIFT is Present. MCH (RBC) [Entitic mass] 28.6 pg 27.0-32.0 [facility] Work Phone: Nucleated RBC/100 WBC (Bld) [Ratio] 0 % 0-5 [facility] Work Phone: MCHC Auto (RBC) [Mass/Vol]on 07-02-2022 MCHC (RBC) [Mass/Vol] 34.6 g/dL 32-36 [facility] Work Phone: Mucus LM Ql (Urine sed)on Mucus Ql (Urine sed) 1+ /hpf [facility] Work Phone: Nitrite Test strip Ql (U)on 07-02-2022 Nitrite Ql (U) Negative Negative [facility] Work Phone: No Panel Informationon 07-02 Estimated Creatinine Clearance Calc 110.95 ml/min [facility] Work Phone: Estimated GFR (MDRD) Amer 114 mL/min >60 [facility] Work Phone: Comment on above: GFR Calc Estimated GFR (MDRD) Non-Af Amer 94 mL/min >60 [facility] Work Phone: Comment on above: Non- GFR Calc Platelets bldon 07-02-2022 Platelets (Bld) [#/Vol] 189 10*3/uL 150-450 [facility] Work Phone: Protein Test strip Ql (U)on 07-02-2022 Protein Ql (U) 15 mg/dl Negative [facility] Work Phone: Serum or plasma calcium yayo urement (mass/volume)on 07-02-2022 Calcium [Mass/Vol] 9.1 mg/dL 8.5-10.1 [facility] Work Phone: Serum or plasma creatinine m easurement (mass/volume)on 07-02-2022 Creatinine [Mass/Vol] 0.87 mg/dL 0.70-1.30 [facility] Work Phone: Comment on above: The validity of the calculated GFR & GFRAA in patients over 70 years has not been determined. Clinical correlation is essential. Serum or plasma urea nitroge n measurement (mass/volume)on 07-02-2022 Urea nitrogen [Mass/Vol] 14 mg/dL 7-18 [facility] Work Phone: Squamous epithelial cells de tection in urine sediment by light microscopyon 07-02-2022 Epithelial cells.squamous LM Ql (Urine sed) 0-5 SEEN /hpf 0-5 [facility] Work Phone: Thin prep Papanicolaou smear with manual screeningon 07-02-2022 Thin prep Papanicolaou smear with manual screening 5 5-15 [facility] Work Phone: Urine blood detectionon RBC Ql (U) Negative Negative [facility] Work Phone: RBC Ql (U) 0 SEEN /hpf 0-5 [facility] Work Phone: Urine clarityon 07-02-2022 Clarity (U) Clear Clear [facility] Work Phone: Urine color determinationon 07-02-2022 Color (U) Yellow Yellow [facility] Work Phone: Urine glucose detectionon Glucose Ql (U) 100 mg/dl Normal [facility] Work Phone: Urine leukocyte esterase det ection by dipstickon 07-02-2022 Leukocyte esterase Test strip Ql (U) Negative Negative [facility] Work Phone: Urine pHon 07-02-2022 pH (U) 7.0 [pH] 5.0 - 8.0 [facility] Work Phone: Urine sediment bacteria coun t by microscopy (number/high power field)on 07-02-2022 Bacteria LM.HPF (Urine sed) [#/Area] 1 /[HPF] None Seen [facility] Work Phone: Urine specific gravity measu rementon 07-02-2022 Specific gravity (U) [Rel density] 1.010 1.002-1.030 [facility] Work Phone: Urobilinogen Auto test strip Ql (U)on 09-02-2022 Urobilinogen Ql (U) 1 mg/dl [facility] Work Phone: Absolute lymphocyte counton 04-26-2022 Lymphocytes Auto (Unsp spec) [#/Vol] 1.44 10*3/uL 0.83-4.51 [facility] Work Phone: Basophil percentageon 2021 Basophil percentage 0 SEEN /hpf 0-5 [facility] Work Phone: Basophils/100 WBC (Bld) 0.3 % 0-1 [facility] Work Phone: Chloride [Moles/Vol] 109 mmol/L 98-107 [facility] Work Phone: Eosinophils/100 WBC (Bld) 4.3 % 0-5 [facility] Work Phone: Glucose [Mass/Vol] 121 mg/dL 74-106 [facility] Work Phone: Comment on above: Fasting Glucose resu lt from 100 to 125 mg/dL suggests IMPAIRED HOMEOSTASIS per A.D.A. criteria. Neutrophils (Bld) [#/Vol] 4.4 10*3/uL 2.0-7.7 [facility] Work Phone: Neutrophils/100 WBC (Bld) 66.3 % 47-70 [facility] Work Phone: Potassium [Moles/Vol] 3.6 mmol/L 3.5-5.1 [facility] Work Phone: Sodium [Moles/Vol] 142 mmol/L 136-145 [facility] Work Phone: WBC (Bld) [#/Vol] 6.7 10*3/uL 4.4-11.0 [facility] Work Phone: Bilirubin Test strip Ql (U)o n 04-26-2022 Bilirubin Ql (U) Negative Negative [facility] Work Phone: [phone] Blood erythrocytes count (nu mber/volume)on 04-26-2022 RBC (Bld) [#/Vol] 4.97 10*6/uL 4.6-6.2 [facility] Work Phone: Blood hemoglobin measurement (mass/volume)on 04-26-2022 Hemoglobin (Bld) [Mass/Vol] 14.1 g/dL 13.0-16.5 [facility] Work Phone: Blood lymphocytes/100 leukoc yteson 04-26-2022 Lymphocytes/100 WBC (Bld) 21.5 % 19-41 [facility] Work Phone: Blood monocytes/100 leukocyt eson 04-26-2022 Monocytes/100 WBC (Bld) 7.3 % 0-10 [facility] Work Phone: Blood platelet mean volumeon 04-26-2022 Platelet mean volume (Bld) [Entitic vol] 9.1 fL 6.2-12.0 [facility] Work Phone: Determination of erythrocyte mean corpuscular volume (MCV)on 04-26-2022 MCV (RBC) [Entitic vol] 80.7 fL 80-94 [facility] Work Phone: Hematocrit Auto (Bld) [Volum e fraction]on 04-26-2022 Hematocrit (Bld) [Volume fraction] 40.1 % 40-54 [facility] Work Phone: Ketones Test strip Ql (U)on 04-26-2022 Ketones Ql (U) Negative Negative [facility] Work Phone: Laboratory - Chemistry and C hemistry - challengeon 04-26-2022 CO2 [Moles/Vol] 28.0 mmol/L 21.0-32.0 [facility] Work Phone: Urea nitrogen/Creatinine [Mass ratio] 10.9 mg/mg 10-20 [facility] Work Phone: Laboratory - Hematology and Cell countson 04-26-2022 Erythrocyte distribution width (RBC) [Entitic vol] 38.6 fL 35.1-43.9 [facility] Work Phone: Erythrocyte distribution width (RBC) [Ratio] 13.4 % 11.6-14.6 [facility] Work Phone: Immature granulocytes/100 WBC (Bld) 0.300 % 0.0-0.9 [facility] Work Phone: Comment on above: IG% - Immature Granu locytes (promyelocytes, myelocytes and metamyelocytes) > 1% indicates that a LEFT SHIFT is Present. MCH (RBC) [Entitic mass] 28.4 pg 27.0-32.0 [facility] Work Phone: Nucleated RBC/100 WBC (Bld) [Ratio] 0 % 0-5 [facility] Work Phone: MCHC Auto (RBC) [Mass/Vol]on 04-26-2022 MCHC (RBC) [Mass/Vol] 35.2 g/dL 32-36 [facility] Work Phone: Mucus LM Ql (Urine sed)on Mucus Ql (Urine sed) 0 SEEN /hpf [facility] Work Phone: Nitrite Test strip Ql (U)on 04-26-2022 Nitrite Ql (U) Negative Negative [facility] Work Phone: No Panel Informationon 04-26 Troponin I High Sensitivity 3 pg/mL 3.0-78.0 [facility] Work Phone: Comment on above: Please Note: New Kira t Units and Gender Specific Reference Ranges. For more information see Policy Stat Procedure [place] High Sensitivity Troponin (TNIH) and attachments. Estimated Creatinine Clearance Calc 116.30 ml/min [facility] Work Phone: Estimated GFR (MDRD) Amer 121 mL/min >60 [facility] Work Phone: Comment on above: GFR Calc Estimated GFR (MDRD) Non-Af Amer 100 mL/min >60 [facility] Work Phone: Comment on above: Non- GFR Calc Platelets bldon 04-26-2022 Platelets (Bld) [#/Vol] 191 10*3/uL 150-450 [facility] Work Phone: Protein Test strip Ql (U)on 04-26-2022 Protein Ql (U) Negative Negative [facility] Work Phone: Serum or plasma calcium yayo urement (mass/volume)on 04-26-2022 Calcium [Mass/Vol] 8.8 mg/dL 8.5-10.1 [facility] [place] [place] Work Phone: Serum or plasma creatinine m easurement (mass/volume)on 04-26-2022 Creatinine [Mass/Vol] 0.83 mg/dL 0.70-1.30 [facility] [place] [place] Work Phone: Comment on above: The validity of the calculated GFR & GFRAA in patients over 70 years has not been determined. Clinical correlation is essential. Serum or plasma urea nitroge n measurement (mass/volume)on 04-26-2022 Urea nitrogen [Mass/Vol] 9 mg/dL 7-18 [facility] Work Phone: Squamous epithelial cells de tection in urine sediment by light microscopyon 04-26-2022 Epithelial cells.squamous LM Ql (Urine sed) 0 SEEN /hpf 0-5 [facility] Work Phone: Thin prep Papanicolaou smear with manual screeningon 04-26-2022 Thin prep Papanicolaou smear with manual screening 5 5-15 [facility] Work Phone: Urine blood detectionon 04-01 RBC Ql (U) Negative Negative [facility] Work Phone: RBC Ql (U) 0 SEEN /hpf 0-5 [facility] Work Phone: Urine clarityon 04-26-2022 Clarity (U) Clear Clear [facility] Work Phone: Urine color determinationon 04-26-2022 Color (U) Yellow Yellow [facility] Work Phone: Urine glucose detectionon Glucose Ql (U) Normal mg/dl Normal [facility] Work Phone: Urine leukocyte esterase det ection by dipstickon 04-26-2022 Leukocyte esterase Test strip Ql (U) Negative Negative [facility] Work Phone: Urine pHon 04-26-2022 pH (U) 6.0 [pH] 5.0 - 8.0 [facility] Work Phone: Urine sediment bacteria coun t by microscopy (number/high power field)on 04-26-2022 Bacteria LM.HPF (Urine sed) [#/Area] 0 /[HPF] None Seen [facility] Work Phone: Urine specific gravity measu rementon 04-26-2022 Specific gravity (U) [Rel density] 1.010 1.002-1.030 [facility] Work Phone: Urobilinogen Auto test strip Ql (U)on 04-26-2022 Urobilinogen Ql (U) Normal mg/dl Normal [facility] Work Phone: Glucose Glucometer (BldC) [M ass/Vol]on 03-20-2022 Glucose [Mass/Vol] 153 mg/dL 74-106 [facility] Work Phone: Comment on above: MANAGEMENT OF PATIEN T CARE PER NURSING PROTOCOL No Panel Informationon 03-20 D-Dimer Quantitative (PE/DVT) 0.75 FEU/ug/m 0.27-0.49 [facility] Work Phone: Comment on above: D-Dimer ELEVATED (>0 .49): Additional studies and clinicalassessments are indicated to conclude diagnosis of:Deep Vein Thrombosis (DVT) or Pulmonary Embolism (PE)CRITICAL VALUE VERIFIED. CALLED TO RACIEL JONES03/20/22 0754 Loida Townsend.RESULTS READ BACK BY SAME . Absolute lymphocyte counton 03-19-2022 Lymphocytes Auto (Unsp spec) [#/Vol] 1.56 10*3/uL 0.83-4.51 [facility] Work Phone: Assessment of wrist artery p atency prior to arterial punctureon 03-19-2022 Arterial patency Wrist artery --pre arterial puncture Positive [facility] Work Phone: Base excesson 03-19-2022 Base excess Calc (BldV) [Moles/Vol] 2 mmol/L -2-2 [facility] Work Phone: Basophil percentageon 2021 Basophil percentage 0-5 SEEN /hpf 0-5 [facility] Work Phone: Basophil percentage 25.7 mmol/L 22-26 [facility] Work Phone: Basophils/100 WBC (Bld) 92 % 95-99 [facility] Work Phone: Basophils/100 WBC (Bld) 0.5 % 0-1 [facility] Work Phone: Bilirubin [Mass/Vol] 1.10 mg/dL 0.20-1.00 [facility] Work Phone: Comment on above: For patients on eltr ombopag therapy, use of Dimension [place] TBIL is not recommended. Chloride [Moles/Vol] 106 mmol/L 98-107 [facility] Work Phone: Eosinophils/100 WBC (Bld) 2.4 % 0-5 [facility] Work Phone: Glucose [Mass/Vol] 167 mg/dL 74-106 [facility] Work Phone: Comment on above: Fasting Glucose resu lt greater than or equal to 126 mg/dL suggests DIABETES MELLITUS per A.D.A. criteria. Lactate [Moles/Vol] 1.2 mmol/L 0.4-2.0 [facility] Work Phone: Neutrophils (Bld) [#/Vol] 7.8 10*3/uL 2.0-7.7 [facility] Work Phone: Neutrophils/100 WBC (Bld) 74.4 % 47-70 [facility] Work Phone: Potassium [Moles/Vol] 3.6 mmol/L 3.5-5.1 [facility] Work Phone: Protein [Mass/Vol] 7.2 g/dL 6.4-8.2 [facility] Work Phone: Sodium [Moles/Vol] 141 mmol/L 136-145 [facility] Work Phone: [phone] WBC (Bld) [#/Vol] 10.5 10*3/uL 4.4-11.0 [facility] Work Phone: Bilirubin Test strip Ql (U)o n 03-19-2022 Bilirubin Ql (U) Negative Negative [facility] Work Phone: Blood erythrocytes count (nu mber/volume)on 03-19-2022 RBC (Bld) [#/Vol] 5.05 10*6/uL 4.6-6.2 [facility] Work Phone: Blood hemoglobin measurement (mass/volume)on 03-19-2022 Hemoglobin (Bld) [Mass/Vol] 14.5 g/dL 13.0-16.5 [facility] Work Phone: Blood lymphocytes/100 leukoc yteson 03-19-2022 Lymphocytes/100 WBC (Bld) 14.9 % 19-41 [facility] Work Phone: Blood monocytes/100 leukocyt eson 03-19-2022 Monocytes/100 WBC (Bld) 7.3 % 0-10 [facility] Work Phone: Blood platelet mean volumeon 03-19-2022 Platelet mean volume (Bld) [Entitic vol] 9.1 fL 6.2-12.0 [facility] Work Phone: CO2 (BldA) [Partial pressure ]on 03-19-2022 CO2 (Bld) [Partial pressure] 37.6 mm[Hg] 35-45 [facility] Work Phone: Determination of erythrocyte mean corpuscular volume (MCV)on 03-19-2022 MCV (RBC) [Entitic vol] 83.4 fL 80-94 [facility] Work Phone: Hematocrit Auto (Bld) [Volum e fraction]on 03-19-2022 Hematocrit (Bld) [Volume fraction] 42.1 % 40-54 [facility] Work Phone: INR in Blood by Coagulation assayon 03-19-2022 INR Coag (Bld) [Relative time] 1.1 {INR} [facility] Work Phone: Ketones Test strip Ql (U)on 03-19-2022 Ketones Ql (U) Negative Negative [facility] Work Phone: Laboratory - Chemistry and C hemistry - challengeon 03-19-2022 ALP [Catalytic activity/Vol] 68 U/L 45-117 [facility] Work Phone: [phone] ALT [Catalytic activity/Vol] 14 U/L 16-61 [facility] Work Phone: CO2 [Moles/Vol] 28.0 mmol/L 21.0-32.0 [facility] Work Phone: Globulin (S) [Mass/Vol] 3.5 g/dL 2.2-4.2 [facility] Work Phone: Urea nitrogen/Creatinine [Mass ratio] 16.4 mg/mg 10-20 [facility] Work Phone: Laboratory - Coagulationon 0 03-19-2022 PT Coag (PPP) [Time] 14.1 s 11.7-14.9 [facility] Work Phone: Laboratory - Hematology and Cell countson 03-19-2022 Erythrocyte distribution width (RBC) [Entitic vol] 41.2 fL 35.1-43.9 [facility] Work Phone: Erythrocyte distribution width (RBC) [Ratio] 13.5 % 11.6-14.6 [facility] Work Phone: Immature granulocytes/100 WBC (Bld) 0.500 % 0.0-0.9 [facility] Work Phone: Comment on above: IG% - Immature Granu locytes (promyelocytes, myelocytes and metamyelocytes) > 1% indicates that a LEFT SHIFT is Present. MCH (RBC) [Entitic mass] 28.7 pg 27.0-32.0 [facility] Work Phone: Nucleated RBC/100 WBC (Bld) [Ratio] 0 % 0-5 [facility] Work Phone: MCHC Auto (RBC) [Mass/Vol]on 03-19-2022 MCHC (RBC) [Mass/Vol] 34.4 g/dL 32-36 [facility] Work Phone: Mucus LM Ql (Urine sed)on Mucus Ql (Urine sed) 0 SEEN /hpf [facility] Work Phone: Nitrite Test strip Ql (U)on 03-19-2022 Nitrite Ql (U) Negative Negative [facility] Work Phone: No Panel Informationon 03-19 SARS-CoV-2 & FLU Antigen (Rapid) [facility] Work Phone: Blood Gas Sample Site L Radial [facility] Work Phone: Blood Gas Specimen Type ART [facility] Work Phone: Blood Gas Total CO2 27 mmol/L [facility] Work Phone: Oxygen Delivery Device Room Air [facility] Work Phone: Estimated Creatinine Clearance Calc 88.88 ml/min [facility] Work Phone: Estimated GFR (MDRD) Amer 87 mL/min >60 [facility] Work Phone: Comment on above: GFR Calc Estimated GFR (MDRD) Non-Af Amer 72 mL/min >60 [facility] Work Phone: Comment on above: Non- GFR Calc Troponin I High Sensitivity < 3 pg/mL 3.0-78.0 [facility] Work Phone: Comment on above: Please Note: New Kira t Units and Gender Specific Reference Ranges. For more information see Policy Stat Procedure [place] High Sensitivity Troponin (TNIH) and attachments. Oxygen (BldA) [Partial press ure]on 03-19-2022 Oxygen (Bld) [Partial pressure] 62 mmHG 75-100 [facility] Work Phone: Platelets bldon 03-19-2022 Platelets (Bld) [#/Vol] 278 10*3/uL 150-450 [facility] Work Phone: Protein Test strip Ql (U)on 03-19-2022 Protein Ql (U) 30 mg/dl Negative [facility] Work Phone: Serum or plasma albumin yayo urement (mass/volume)on 03-19-2022 Albumin [Mass/Vol] 3.7 g/dL 3.2-5.0 [facility] Work Phone: Serum or plasma albumin/glob ulin mass ratioon 03-19-2022 Albumin/Globulin [Mass ratio] 1.1 {ratio} 0.9-2.4 [facility] Work Phone: Serum or plasma calcium yayo urement (mass/volume)on 03-19-2022 Calcium [Mass/Vol] 9.0 mg/dL 8.5-10.1 [facility] Work Phone: Serum or plasma creatinine m easurement (mass/volume)on 03-19-2022 Creatinine [Mass/Vol] 1.10 mg/dL 0.70-1.30 [facility] Work Phone: Comment on above: The validity of the calculated GFR & GFRAA in patients over 70 years has not been determined. Clinical correlation is essential. Serum or plasma urea nitroge n measurement (mass/volume)on 03-19-2022 Urea nitrogen [Mass/Vol] 18 mg/dL 7-18 [facility] Work Phone: Squamous epithelial cells de tection in urine sediment by light microscopyon 03-19-2022 Epithelial cells.squamous LM Ql (Urine sed) 0-5 SEEN /hpf 0-5 [facility] Work Phone: Thin prep Papanicolaou smear with manual screeningon 03-19-2022 Thin prep Papanicolaou smear with manual screening 10 U/L 15-37 [facility] Work Phone: Thin prep Papanicolaou smear with manual screening 7 5-15 [facility] [facility] Work [facility]: Urine blood detectionon 03-01 0 RBC Ql (U) Negative Negative [facility] Work Phone: RBC Ql (U) 0 SEEN /hpf 0-5 [facility] Work Phone: Urine clarityon 03-19-2022 Clarity (U) Clear Clear [facility] Work Phone: Urine color determinationon 03-19-2022 Color (U) Yellow Yellow [facility] Work Phone: Urine glucose detectionon Glucose Ql (U) Normal mg/dl Normal [facility] Work Phone: Urine leukocyte esterase det ection by dipstickon 03-19-2022 Leukocyte esterase Test strip Ql (U) 25 /ul Negative [facility] Work Phone: Urine pHon 03-19-2022 pH (U) 5.0 [pH] 5.0 - 8.0 [facility] Work Phone: Urine sediment bacteria coun t by microscopy (number/high power field)on 03-19-2022 Bacteria LM.HPF (Urine sed) [#/Area] 0 /[HPF] None Seen [facility] Work Phone: Urine specific gravity measu rementon 03-19-2022 Specific gravity (U) [Rel density] 1.020 1.002-1.030 [facility] Work Phone: Urobilinogen Auto test strip Ql (U)on 03-19-2022 Urobilinogen Ql (U) 1 mg/dl Normal [facility] Work Phone: pH measurementon 03-19-2022 pH (Unsp spec) 7.44 [pH] 7.35-7.45 [facility] Work Phone: Absolute lymphocyte counton 03-02-2022 Lymphocytes Auto (Unsp spec) [#/Vol] 1.57 10*3/uL 0.83-4.51 [facility] Work Phone: [phone] Basophil percentageon 2021 Basophils/100 WBC (Bld) 0.7 % 0-1 [facility] Work Phone: Bilirubin [Mass/Vol] 0.40 mg/dL 0.20-1.00 [facility] Work Phone: Comment on above: For patients on eltr ombopag therapy, use of Dimension [place] TBIL is not recommended. Chloride [Moles/Vol] 108 mmol/L 98-107 [facility] Work Phone: Eosinophils/100 WBC (Bld) 3.8 % 0-5 [facility] Work Phone: Glucose [Mass/Vol] 222 mg/dL 74-106 [facility] Work Phone: Comment on above: Glucose result great er than or equal to 200 mg/dLsuggests DIABETES MELLITUS per A.D.A. criteria. Neutrophils (Bld) [#/Vol] 4.8 10*3/uL 2.0-7.7 [facility] Work Phone: Neutrophils/100 WBC (Bld) 66.5 % 47-70 [facility] Work Phone: Potassium [Moles/Vol] 3.5 mmol/L 3.5-5.1 [facility] Work Phone: Protein [Mass/Vol] 7.2 g/dL 6.4-8.2 [facility] Work Phone: Sodium [Moles/Vol] 141 mmol/L 136-145 [facility] Work Phone: WBC (Bld) [#/Vol] 7.2 10*3/uL 4.4-11.0 [facility] Work Phone: Blood erythrocytes count (nu mber/volume)on 03-02-2022 RBC (Bld) [#/Vol] 4.75 10*6/uL 4.6-6.2 [facility] Work Phone: Blood hemoglobin measurement (mass/volume)on 03-02-2022 Hemoglobin (Bld) [Mass/Vol] 13.7 g/dL 13.0-16.5 [facility] Work Phone: Blood lymphocytes/100 leukoc yteson 03-02-2022 Lymphocytes/100 WBC (Bld) 21.9 % 19-41 [facility] Work Phone: Blood monocytes/100 leukocyt eson 03-02-2022 Monocytes/100 WBC (Bld) 6.8 % 0-10 [facility] Work Phone: Blood platelet mean volumeon 03-02-2022 Platelet mean volume (Bld) [Entitic vol] 9.6 fL 6.2-12.0 [facility] Work Phone: Determination of erythrocyte mean corpuscular volume (MCV)on 03-02-2022 MCV (RBC) [Entitic vol] 82.1 fL 80-94 [facility] Work Phone: Hematocrit Auto (Bld) [Volum e fraction]on 03-02-2022 Hematocrit (Bld) [Volume fraction] 39.0 % 40-54 [facility] Work Phone: Laboratory - Chemistry and C hemistry - challengeon 03-02-2022 ALP [Catalytic activity/Vol] 69 U/L 45-117 [facility] Work Phone: ALT [Catalytic activity/Vol] 15 U/L 16-61 [facility] Work Phone: CO2 [Moles/Vol] 26.0 mmol/L 21.0-32.0 [facility] Work Phone: Globulin (S) [Mass/Vol] 3.5 g/dL 2.2-4.2 [facility] Work Phone: Urea nitrogen/Creatinine [Mass ratio] 14.9 mg/mg 10-20 [facility] Work Phone: Laboratory - Hematology and Cell countson 03-02-2022 Erythrocyte distribution width (RBC) [Entitic vol] 40.8 fL 35.1-43.9 [facility] Work Phone: Erythrocyte distribution width (RBC) [Ratio] 13.9 % 11.6-14.6 [facility] Work Phone: Immature granulocytes/100 WBC (Bld) 0.300 % 0.0-0.9 [facility] Work Phone: Comment on above: IG% - Immature Granu locytes (promyelocytes, myelocytes and metamyelocytes) > 1% indicates that a LEFT SHIFT is Present. MCH (RBC) [Entitic mass] 28.8 pg 27.0-32.0 [facility] Work Phone: Nucleated RBC/100 WBC (Bld) [Ratio] 0 % 0-5 [facility] Work Phone: MCHC Auto (RBC) [Mass/Vol]on 03-02-2022 MCHC (RBC) [Mass/Vol] 35.1 g/dL 32-36 [facility] Work Phone: No Panel Informationon 03-02 Estimated Creatinine Clearance Calc 104.00 ml/min [facility] Work Phone: Estimated GFR (MDRD) Amer 105 mL/min >60 [facility] Work Phone: Comment on above: GFR Calc Estimated GFR (MDRD) Non-Af Amer 86 mL/min >60 [facility] Work Phone: Comment on above: Non- GFR Calc Platelets bldon 03-02-2022 Platelets (Bld) [#/Vol] 221 10*3/uL 150-450 [facility] Work Phone: Serum or plasma albumin yayo urement (mass/volume)on 03-02-2022 Albumin [Mass/Vol] 3.7 g/dL 3.2-5.0 [facility] Work Phone: Serum or plasma albumin/glob ulin mass ratioon 03-02-2022 Albumin/Globulin [Mass ratio] 1.1 {ratio} 0.9-2.4 [facility] Work Phone: Serum or plasma calcium yayo urement (mass/volume)on 03-02-2022 Calcium [Mass/Vol] 8.5 mg/dL 8.5-10.1 [facility] Work Phone: Serum or plasma creatinine m easurement (mass/volume)on 03-02-2022 Creatinine [Mass/Vol] 0.94 mg/dL 0.70-1.30 [facility] Work Phone: Comment on above: The validity of the calculated GFR & GFRAA in patients over 70 years has not been determined. Clinical correlation is essential. Serum or plasma urea nitroge n measurement (mass/volume)on 03-02-2022 Urea nitrogen [Mass/Vol] 14 mg/dL 7-18 [facility] Work Phone: Thin prep Papanicolaou smear with manual screeningon 03-02-2022 Thin prep Papanicolaou smear with manual screening 8 U/L 15-37 [facility] Work Phone: Thin prep Papanicolaou smear with manual screening 7 5-15 [facility] Work Phone: Absolute lymphocyte counton 01-31-2022 Lymphocytes Auto (Unsp spec) [#/Vol] 1.83 10*3/uL 0.83-4.51 [facility] Work Phone: Basophil percentageon 2021 Basophils/100 WBC (Bld) 0.4 % 0-1 [facility] Work Phone: Bilirubin [Mass/Vol] 0.60 mg/dL 0.20-1.00 [facility] Work Phone: Comment on above: For patients on eltr ombopag therapy, use of Dimension [place] TBIL is not recommended. Chloride [Moles/Vol] 108 mmol/L 98-107 [facility] Work Phone: Eosinophils/100 WBC (Bld) 3.9 % 0-5 [facility] Work Phone: Glucose [Mass/Vol] 172 mg/dL 74-106 [facility] Work Phone: Comment on above: Fasting Glucose resu lt greater than or equal to 126 mg/dL suggests DIABETES MELLITUS per A.D.A. criteria. Neutrophils (Bld) [#/Vol] 5.6 10*3/uL 2.0-7.7 [facility] Work Phone: [phone] Neutrophils/100 WBC (Bld) 66.2 % 47-70 [facility] Work Phone: Potassium [Moles/Vol] 3.7 mmol/L 3.5-5.1 [facility] Work Phone: [phone] Protein [Mass/Vol] 7.0 g/dL 6.4-8.2 [facility] Work Phone: Sodium [Moles/Vol] 140 mmol/L 136-145 [facility] Work Phone: WBC (Bld) [#/Vol] 8.4 10*3/uL 4.4-11.0 [facility] Work Phone: Blood erythrocytes count (nu mber/volume)on 01-31-2022 RBC (Bld) [#/Vol] 5.07 10*6/uL 4.6-6.2 [facility] Work Phone: Blood hemoglobin measurement (mass/volume)on 01-31-2022 Hemoglobin (Bld) [Mass/Vol] 14.5 g/dL 13.0-16.5 [facility] Work Phone: Blood lymphocytes/100 leukoc yteson 01-31-2022 Lymphocytes/100 WBC (Bld) 21.8 % 19-41 [facility] Work Phone: Blood monocytes/100 leukocyt eson 01-31-2022 Monocytes/100 WBC (Bld) 7.3 % 0-10 [facility] Work Phone: Blood platelet mean volumeon 01-31-2022 Platelet mean volume (Bld) [Entitic vol] 9.1 fL 6.2-12.0 [facility] Work Phone: Determination of erythrocyte mean corpuscular volume (MCV)on 01-31-2022 MCV (RBC) [Entitic vol] 80.9 fL 80-94 [facility] Work Phone: Hematocrit Auto (Bld) [Volum e fraction]on 01-31-2022 Hematocrit (Bld) [Volume fraction] 41.0 % 40-54 [facility] Work Phone: Laboratory - Chemistry and C hemistry - challengeon 01-31-2022 ALP [Catalytic activity/Vol] 68 U/L 45-117 [facility] Work Phone: ALT [Catalytic activity/Vol] 14 U/L 16-61 [facility] Work Phone: CO2 [Moles/Vol] 26.0 mmol/L 21.0-32.0 [facility] Work Phone: Globulin (S) [Mass/Vol] 3.3 g/dL 2.2-4.2 [facility] Work Phone: Urea nitrogen/Creatinine [Mass ratio] 18.0 mg/mg 10-20 [facility] Work Phone: Laboratory - Hematology and Cell countson 01-31-2022 Erythrocyte distribution width (RBC) [Entitic vol] 39.8 fL 35.1-43.9 [facility] Work Phone: Erythrocyte distribution width (RBC) [Ratio] 13.8 % 11.6-14.6 [facility] Work Phone: Immature granulocytes/100 WBC (Bld) 0.400 % 0.0-0.9 [facility] Work Phone: Comment on above: IG% - Immature Granu locytes (promyelocytes, myelocytes and metamyelocytes) > 1% indicates that a LEFT SHIFT is Present. MCH (RBC) [Entitic mass] 28.6 pg 27.0-32.0 [facility] Work Phone: Nucleated RBC/100 WBC (Bld) [Ratio] 0 % 0-5 [facility] Work Phone: MCHC Auto (RBC) [Mass/Vol]on 01-31-2022 MCHC (RBC) [Mass/Vol] 35.4 g/dL 32-36 [facility] Work Phone: No Panel Informationon 01-31 Estimated Creatinine Clearance Calc 125.34 ml/min [facility] Work Phone: Estimated GFR (MDRD) Amer 131 mL/min >60 [facility] Work Phone: Comment on above: GFR Calc Estimated GFR (MDRD) Non-Af Amer 108 mL/min >60 [facility] Work Phone: Comment on above: Non- GFR Calc Platelets bldon 01-31-2022 Platelets (Bld) [#/Vol] 222 10*3/uL 150-450 [facility] Work Phone: Serum or plasma albumin yayo urement (mass/volume)on 01-31-2022 Albumin [Mass/Vol] 3.7 g/dL 3.2-5.0 [facility] Work Phone: Serum or plasma albumin/glob ulin mass ratioon 01-31-2022 Albumin/Globulin [Mass ratio] 1.1 {ratio} 0.9-2.4 [facility] Work Phone: Serum or plasma calcium yayo urement (mass/volume)on 01-31-2022 Calcium [Mass/Vol] 8.4 mg/dL 8.5-10.1 [facility] Work Phone: Serum or plasma creatinine m easurement (mass/volume)on 01-31-2022 Creatinine [Mass/Vol] 0.78 mg/dL 0.70-1.30 [facility] Work Phone: Comment on above: The validity of the calculated GFR & GFRAA in patients over 70 years has not been determined. Clinical correlation is essential. Serum or plasma urea nitroge n measurement (mass/volume)on 01-31-2022 Urea nitrogen [Mass/Vol] 14 mg/dL 7-18 [facility] Work Phone: Thin prep Papanicolaou smear with manual screeningon 01-31-2022 Thin prep Papanicolaou smear with manual screening 13 U/L 15-37 [facility] Work Phone: Thin prep Papanicolaou smear with manual screening 6 5-15 [facility] Work Phone: Absolute lymphocyte counton 01-08-2022 Lymphocytes Auto (Unsp spec) [#/Vol] 1.33 10*3/uL 0.83-4.51 [facility] Work Phone: Basophil percentageon 2021 Basophils/100 WBC (Bld) 0.3 % 0-1 [facility] Work Phone: Bilirubin [Mass/Vol] 0.60 mg/dL 0.20-1.00 [facility] Work Phone: Comment on above: For patients on eltr ombopag therapy, use of Dimension [place] TBIL is not recommended. Chloride [Moles/Vol] 104 mmol/L 98-107 [facility] Work Phone: Eosinophils/100 WBC (Bld) 0.5 % 0-5 [facility] Work Phone: Glucose [Mass/Vol] 294 mg/dL 74-106 [facility] Work Phone: Comment on above: Glucose result great er than or equal to 200 mg/dLsuggests DIABETES MELLITUS per A.D.A. criteria. Neutrophils (Bld) [#/Vol] 8.1 10*3/uL 2.0-7.7 [facility] Work Phone: Neutrophils/100 WBC (Bld) 80.9 % 47-70 [facility] Work Phone: [phone] Potassium [Moles/Vol] 3.6 mmol/L 3.5-5.1 [facility] Work Phone: Protein [Mass/Vol] 7.6 g/dL 6.4-8.2 [facility] Work Phone: Sodium [Moles/Vol] 135 mmol/L 136-145 [facility] Work Phone: WBC (Bld) [#/Vol] 10.0 10*3/uL 4.4-11.0 [facility] Work Phone: Blood erythrocytes count (nu mber/volume)on 01-08-2022 RBC (Bld) [#/Vol] 5.06 10*6/uL 4.6-6.2 [facility] Work Phone: Blood hemoglobin measurement (mass/volume)on 01-08-2022 Hemoglobin (Bld) [Mass/Vol] 14.6 g/dL 13.0-16.5 [facility] Work Phone: Blood lymphocytes/100 leukoc yteson 01-08-2022 Lymphocytes/100 WBC (Bld) 13.4 % 19-41 [facility] Work Phone: Blood monocytes/100 leukocyt eson 01-08-2022 Monocytes/100 WBC (Bld) 4.4 % 0-10 [facility] Work Phone: Blood platelet mean volumeon 01-08-2022 Platelet mean volume (Bld) [Entitic vol] 9.2 fL 6.2-12.0 [facility] Work Phone: Determination of erythrocyte mean corpuscular volume (MCV)on 01-08-2022 MCV (RBC) [Entitic vol] 81.0 fL 80-94 [facility] Work Phone: Hematocrit Auto (Bld) [Volum e fraction]on 01-08-2022 Hematocrit (Bld) [Volume fraction] 41.0 % 40-54 [facility] Work Phone: Laboratory - Chemistry and C hemistry - challengeon 01-08-2022 ALP [Catalytic activity/Vol] 79 U/L 45-117 [facility] Work Phone: ALT [Catalytic activity/Vol] 16 U/L 16-61 [facility] Work Phone: CO2 [Moles/Vol] 25.0 mmol/L 21.0-32.0 [facility] Work Phone: Globulin (S) [Mass/Vol] 3.6 g/dL 2.2-4.2 [facility] Work Phone: Urea nitrogen/Creatinine [Mass ratio] 16.8 mg/mg 10-20 [facility] Work Phone: Laboratory - Hematology and Cell countson 01-08-2022 Erythrocyte distribution width (RBC) [Entitic vol] 40.0 fL 35.1-43.9 [facility] Work Phone: Erythrocyte distribution width (RBC) [Ratio] 13.9 % 11.6-14.6 [facility] Work Phone: Immature granulocytes/100 WBC (Bld) 0.500 % 0.0-0.9 [facility] Work Phone: Comment on above: IG% - Immature Granu locytes (promyelocytes, myelocytes and metamyelocytes) > 1% indicates that a LEFT SHIFT is Present. MCH (RBC) [Entitic mass] 28.9 pg 27.0-32.0 [facility] Work Phone: Nucleated RBC/100 WBC (Bld) [Ratio] 0 % 0-5 [facility] Work Phone: MCHC Auto (RBC) [Mass/Vol]on 01-08-2022 MCHC (RBC) [Mass/Vol] 35.6 g/dL 32-36 [facility] Work Phone: No Panel Informationon 01-08 Estimated Creatinine Clearance Calc 96.79 ml/min [facility] Work Phone: Estimated GFR (MDRD) Amer 96 mL/min >60 [facility] Work Phone: Comment on above: GFR Calc Estimated GFR (MDRD) Non-Af Amer 80 mL/min >60 [facility] Work Phone: Comment on above: Non- GFR Calc Platelets bldon 01-08-2022 Platelets (Bld) [#/Vol] 228 10*3/uL 150-450 [facility] Work Phone: Serum or plasma albumin yayo urement (mass/volume)on 01-08-2022 Albumin [Mass/Vol] 4.0 g/dL 3.2-5.0 [facility] Work Phone: Serum or plasma albumin/glob ulin mass ratioon 01-08-2022 Albumin/Globulin [Mass ratio] 1.1 {ratio} 0.9-2.4 [facility] Work Phone: Serum or plasma calcium yayo urement (mass/volume)on 01-08-2022 Calcium [Mass/Vol] 9.3 mg/dL 8.5-10.1 [facility] Work Phone: Serum or plasma creatinine m easurement (mass/volume)on 01-08-2022 Creatinine [Mass/Vol] 1.01 mg/dL 0.70-1.30 [facility] Work Phone: Comment on above: The validity of the calculated GFR & GFRAA in patients over 70 years has not been determined. Clinical correlation is essential. Serum or plasma urea nitroge n measurement (mass/volume)on 01-08-2022 Urea nitrogen [Mass/Vol] 17 mg/dL 7-18 [facility] Work Phone: Thin prep Papanicolaou smear with manual screeningon 01-08-2022 Thin prep Papanicolaou smear with manual screening 8 U/L 15-37 [facility] Work Phone: Thin prep Papanicolaou smear with manual screening 6 5-15 [facility] Work Phone: Absolute lymphocyte counton 01-07-2022 Lymphocytes Auto (Unsp spec) [#/Vol] 2.13 10*3/uL 0.83-4.51 [facility] Work Phone: Basophil percentageon 2021 Basophils/100 WBC (Bld) 0.3 % 0-1 [facility] Work Phone: Bilirubin [Mass/Vol] 0.60 mg/dL 0.20-1.00 [facility] Work Phone: Comment on above: For patients on eltr ombopag therapy, use of Dimension [place] TBIL is not recommended. Chloride [Moles/Vol] 107 mmol/L 98-107 [facility] Work Phone: Eosinophils/100 WBC (Bld) 2.7 % 0-5 [facility] Work Phone: Glucose [Mass/Vol] 150 mg/dL 74-106 [facility] Work Phone: Comment on above: Fasting Glucose resu lt greater than or equal to 126 mg/dL suggests DIABETES MELLITUS per A.D.A. criteria. Neutrophils (Bld) [#/Vol] 3.5 10*3/uL 2.0-7.7 [facility] Work Phone: Neutrophils/100 WBC (Bld) 55.6 % 47-70 [facility] Work Phone: Potassium [Moles/Vol] 3.4 mmol/L 3.5-5.1 [facility] Work Phone: Protein [Mass/Vol] 6.3 g/dL 6.4-8.2 [facility] Work Phone: Sodium [Moles/Vol] 139 mmol/L 136-145 [facility] Work Phone: WBC (Bld) [#/Vol] 6.3 10*3/uL 4.4-11.0 [facility] Work Phone: [phone] Blood erythrocytes count (nu mber/volume)on 01-07-2022 RBC (Bld) [#/Vol] 4.65 10*6/uL 4.6-6.2 [facility] Work Phone: [phone] Blood hemoglobin measurement (mass/volume)on 01-07-2022 Hemoglobin (Bld) [Mass/Vol] 13.5 g/dL 13.0-16.5 [facility] Work Phone: Blood lymphocytes/100 leukoc yteson 01-07-2022 Lymphocytes/100 WBC (Bld) 33.9 % 19-41 [facility] Work Phone: Blood monocytes/100 leukocyt eson 01-07-2022 Monocytes/100 WBC (Bld) 7.2 % 0-10 [facility] Work Phone: Blood platelet mean volumeon 01-07-2022 Platelet mean volume (Bld) [Entitic vol] 9.4 fL 6.2-12.0 [facility] Work Phone: Determination of erythrocyte mean corpuscular volume (MCV)on 01-07-2022 MCV (RBC) [Entitic vol] 82.2 fL 80-94 [facility] Work Phone: Glucose Glucometer (BldC) [M ass/Vol]on 01-07-2022 Glucose [Mass/Vol] 161 mg/dL 74-106 [facility] Work Phone: Comment on above: MANAGEMENT OF PATIEN T CARE PER NURSING PROTOCOL Hematocrit Auto (Bld) [Volum e fraction]on 01-07-2022 Hematocrit (Bld) [Volume fraction] 38.2 % 40-54 [facility] Work Phone: Laboratory - Chemistry and C hemistry - challengeon 01-07-2022 ALP [Catalytic activity/Vol] 64 U/L 45-117 [facility] Work Phone: ALT [Catalytic activity/Vol] 11 U/L 16-61 [facility] Work Phone: CO2 [Moles/Vol] 27.0 mmol/L 21.0-32.0 [facility] Work Phone: Globulin (S) [Mass/Vol] 3.1 g/dL 2.2-4.2 [facility] Work Phone: Urea nitrogen/Creatinine [Mass ratio] 12.9 mg/mg 10-20 [facility] Work Phone: Laboratory - Hematology and Cell countson 01-07-2022 Erythrocyte distribution width (RBC) [Entitic vol] 40.8 fL 35.1-43.9 [facility] Work Phone: Erythrocyte distribution width (RBC) [Ratio] 13.9 % 11.6-14.6 [facility] Work Phone: Immature granulocytes/100 WBC (Bld) 0.300 % 0.0-0.9 [facility] Work Phone: Comment on above: IG% - Immature Granu locytes (promyelocytes, myelocytes and metamyelocytes) > 1% indicates that a LEFT SHIFT is Present. MCH (RBC) [Entitic mass] 29.0 pg 27.0-32.0 [facility] Work Phone: Nucleated RBC/100 WBC (Bld) [Ratio] 0 % 0-5 [facility] Work Phone: MCHC Auto (RBC) [Mass/Vol]on 01-07-2022 MCHC (RBC) [Mass/Vol] 35.3 g/dL 32-36 [facility] Work Phone: No Panel Informationon 01-07 Estimated Creatinine Clearance Calc 139.66 ml/min [facility] Work Phone: Estimated GFR (MDRD) Amer 148 mL/min >60 [facility] Work Phone: Comment on above: GFR Calc Estimated GFR (MDRD) Non-Af Amer 123 mL/min >60 [facility] Work Phone: Comment on above: Non- GFR Calc Platelets bldon 01-07-2022 Platelets (Bld) [#/Vol] 208 10*3/uL 150-450 [facility] Work Phone: Serum or plasma albumin yayo urement (mass/volume)on 01-07-2022 Albumin [Mass/Vol] 3.2 g/dL 3.2-5.0 [facility] Work Phone: Serum or plasma albumin/glob ulin mass ratioon 01-07-2022 Albumin/Globulin [Mass ratio] 1.0 {ratio} 0.9-2.4 [facility] Work Phone: Serum or plasma calcium yayo urement (mass/volume)on 01-07-2022 Calcium [Mass/Vol] 8.4 mg/dL 8.5-10.1 [facility] Work Phone: Serum or plasma creatinine m easurement (mass/volume)on 01-07-2022 Creatinine [Mass/Vol] 0.70 mg/dL 0.70-1.30 [facility] Work Phone: Comment on above: The validity of the calculated GFR & GFRAA in patients over 70 years has not been determined. Clinical correlation is essential. Serum or plasma urea nitroge n measurement (mass/volume)on 01-07-2022 Urea nitrogen [Mass/Vol] 9 mg/dL 7-18 [facility] Work Phone: Thin prep Papanicolaou smear with manual screeningon 01-07-2022 Thin prep Papanicolaou smear with manual screening 8 U/L 15-37 [facility] Work Phone: Thin prep Papanicolaou smear with manual screening 5 5-15 [facility] Work Phone: Erythrocyte sedimentation ra mau 01-05-2022 ESR (Bld) [Velocity] 4 mm/h 0-20 [facility] Work Phone: Serum or plasma C reactive p rotein measurement (mass/volume)on 01-05-2022 CRP [Mass/Vol] mg/L 0.0-3.0 [facility] Work Phone: Comment on above: C-Reactive Protein ( CRP) provides useful information for thediagnosis, therapy and monitoring of inflammatory processesand associated diseases. For the evaluation of Relative Riskfor Cardiovascular Disease, a High Sensitivity CRP (HSCRP)should be ordered. Thin prep Papanicolaou smear with manual screeningon 01-05-2022 Thin prep Papanicolaou smear with manual screening 192 U/L 87-241 [facility] Work Phone: Basophil percentageon 2021 Basophil percentage 0 SEEN /hpf 0-5 [facility] Work Phone: Lactate [Moles/Vol] 1.1 mmol/L 0.4-2.0 [facility] Work Phone: Bilirubin Test strip Ql (U)o n 01-04-2022 Bilirubin Ql (U) Negative Negative [facility] Work Phone: Ketones Test strip Ql (U)on 01-04-2022 Ketones Ql (U) 50 mg/dl Negative [facility] Work Phone: Laboratory - Chemistry and C hemistry - challengeon 01-04-2022 Lipase [Catalytic activity/Vol] 38 U/L 73-393 [facility] Work Phone: Mucus LM Ql (Urine sed)on Mucus Ql (Urine sed) 0 SEEN /hpf [facility] Work Phone: Nitrite Test strip Ql (U)on 01-04-2022 Nitrite Ql (U) Negative Negative [facility] [facility] Work Phone: Protein Test strip Ql (U)on 01-04-2022 Protein Ql (U) 15 mg/dl Negative [facility] Work Phone: Squamous epithelial cells de tection in urine sediment by light microscopyon 01-04-2022 Epithelial cells.squamous LM Ql (Urine sed) 0 SEEN /hpf 0-5 [facility] Work Phone: Urine blood detectionon RBC Ql (U) Negative Negative [facility] Work Phone: RBC Ql (U) 0 SEEN /hpf 0-5 [facility] Work Phone: Urine clarityon 01-04-2022 Clarity (U) Clear Clear [facility] Work Phone: Urine color determinationon 01-04-2022 Color (U) Yellow Yellow [facility] Work Phone: Urine glucose detectionon Glucose Ql (U) 1000 mg/dl Normal [facility] Work Phone: Urine leukocyte esterase det ection by dipstickon 01-04-2022 Leukocyte esterase Test strip Ql (U) Negative Negative [facility] Work Phone: Urine pHon 01-04-2022 pH (U) 5.0 [pH] 5.0 - 8.0 [facility] Work Phone: Urine sediment bacteria coun t by microscopy (number/high power field)on 01-04-2022 Bacteria LM.HPF (Urine sed) [#/Area] 0 /[HPF] None Seen [facility] Work Phone: Urine specific gravity measu rementon 01-04-2022 Specific gravity (U) [Rel density] 1.010 1.002-1.030 [facility] Work Phone: Urobilinogen Auto test strip Ql (U)on 01-04-2022 Urobilinogen Ql (U) Normal mg/dl Normal [facility] Work Phone: Basophil percentageon 2021 [facility] Work Phone: Comment on above: Test not performedhe molysis present redraw for k if indicatedPrevious reported result: TNP mmol/LEdited by: VEL on 11/12/21:2008 Chloride [Moles/Vol] 102 mmol/L 98-107 [facility] Work Phone: Glucose [Mass/Vol] 326 mg/dL 74-106 [facility] Work Phone: Comment on above: Glucose result great er than or equal to 200 mg/dLsuggests DIABETES MELLITUS per A.D.A. criteria. Sodium [Moles/Vol] 135 mmol/L 136-145 [facility] Work Phone: Glucose Glucometer (BldC) [M ass/Vol]on 11-12-2021 Glucose [Mass/Vol] 324 mg/dL 70-110 [facility] Work Phone: Comment on above: MANAGEMENT OF PATIEN T CARE PER NURSING PROTOCOL Laboratory - Chemistry and C hemistry - challengeon 11-12-2021 CO2 [Moles/Vol] 26.0 mmol/L 21.0-32.0 [facility] Work Phone: Urea nitrogen/Creatinine [Mass ratio] 13.4 mg/mg 10-20 [facility] Work Phone: No Panel Informationon 11-12 Estimated Creatinine Clearance Calc 119.22 ml/min [facility] Work Phone: Estimated GFR (MDRD) Amer 122 mL/min >60 [facility] Work Phone: Comment on above: GFR Calc Estimated GFR (MDRD) Non-Af Amer 101 mL/min >60 [facility] Work Phone: Comment on above: Non- GFR Calc Serum or plasma calcium yayo urement (mass/volume)on 11-12-2021 Calcium [Mass/Vol] 8.6 mg/dL 8.5-10.1 [facility] Work Phone: Serum or plasma creatinine m easurement (mass/volume)on 11-12-2021 Creatinine [Mass/Vol] 0.82 mg/dL 0.70-1.30 [facility] Work Phone: Comment on above: The validity of the calculated GFR & GFRAA in patients over 70 years has not been determined. Clinical correlation is essential. Serum or plasma urea nitroge n measurement (mass/volume)on 11-12-2021 Urea nitrogen [Mass/Vol] 11 mg/dL 7-18 [facility] Work Phone: Thin prep Papanicolaou smear with manual screeningon 11-12-2021 Thin prep Papanicolaou smear with manual screening 7 5-15 [facility] Work Phone: Glucose,Bedsideon 10-07-2019 Glucose [Mass/Vol] 240 mg/dL High 70-100 [facility] Comment on above: Result Comment: Test performed by glucose meter. Results may be 10%-15% lower than serum/plasma values. (CLIA ID [id number]) Performed By: #### B MP3, HEMDF #### [facility] [address] [place] [address] POCT Glucoseon 10-07-2019 Glucose [Mass/Vol] 240 mg/dL High 70 - 100 mg/dL [place] Comment on above: Test performed by gl ucose meter. Results may be 10%-15% lower than serum/plasma values. (CLIA ID [id number]) Interpretation and review of laboratory results Abnormal [place] Test Performed by [facility], [address] [place] [address] [place], [place] Basic Metabolic Panelon 120 Anion gap [Moles/Vol] 7 Normal [facility] Comment on above: Performed By: #### H EMDF, BMP3M, MG3 #### [address] [address] Calcium [Mass/Vol] 9.0 mg/dL Normal 8.4-10.4 [facility] Comment on above: Performed By: #### H EMDF, BMP3M, MG3 #### [address] [address] CO2 [Moles/Vol] 28 mmol/L Normal 22-30 [facility] Comment on above: Performed By: #### H EMDF, BMP3M, MG3 #### [address] [place] [address] Creatinine [Mass/Vol] 0.73 mg/dL Normal 0.52-1.25 [facility] Comment on above: Performed By: #### H EMDF, BMP3M, MG3 #### [address] [place] [address] GFR/1.73 sq M predicted among blacks MDRD (S/P/Bld) [Vol rate/Area] mL/min/{1.73_m2} Normal >60 [facility] Comment on above: Performed By: #### H EMDF, BMP3M, MG3 #### [address] [place] [address] GFR/1.73 sq M predicted among non-blacks MDRD (S/P/Bld) [Vol rate/Area] mL/min/{1.73_m2} Normal >60 [facility] Comment on above: Result Comment: Sour ce- MDRD equation with creatinine calibration to IDMS(NKDEP) eGFR not recommended for drug dose adjustment Performed By: #### H EMDF, BMP3M, MG3 #### [facility] [address], [place] Glucose [Mass/Vol] 194 mg/dL High 70-100 [facility] Comment on above: Performed By: #### H EMDF, BMP3M, MG3 #### [address] [place], [place] Urea nitrogen [Mass/Vol] 10 mg/dL Normal 7-20 [facility] Comment on above: Performed By: #### H EMDF, BMP3M, MG3 #### [address] [place], [place] Chloride [Moles/Vol] 105 mmol/L Normal 98-107 [facility] Comment on above: Performed By: #### H EMDF, BMP3M, MG3 #### [facility] [address], [place] Potassium [Moles/Vol] 3.4 mmol/L Low 3.5-5.1 [facility] Comment on above: Performed By: #### H EMDF, BMP3M, MG3 #### [facility] [address], [place] Sodium [Moles/Vol] 140 mmol/L Normal 135-145 [facility] Comment on above: Performed By: #### H EMDF, BMP3M, MG3 #### [facility] [address], [place] Basic Metabolic Panel w/ Ref pietro to MGon 10-06-2019 Anion gap [Moles/Vol] 7 mmol/L [facility], [place] Calcium [Mass/Vol] 9.0 mg/dL 8.4 - 10. 4 mg/dL [facility], [place] Chloride [Moles/Vol] 105 mmol/L 98 - 10 7 mmol/L [place] CO2 [Moles/Vol] 28 mmol/L 22 - 30 mmol/L [place] Creatinine [Mass/Vol] 0.73 mg/dL 0.52 - 1.25 mg/dL [place] EGFR IF NonAfrican Taiwanese >60.0 >60 mL/min [place] Comment on above: Source- MDRD equatio n with creatinine calibration to IDMS(NKDEP) eGFR not recommended for drug dose adjustment GFR/1.73 sq M predicted among blacks MDRD (S/P/Bld) [Vol rate/Area] mL/min/{1.73_m2} >60 mL/min [place] Glucose [Mass/Vol] 194 mg/dL High 70 - 100 mg/dL [place] Potassium [Moles/Vol] 3.4 mmol/L Low 3.5 - 5.1 mmol/L [place] Sodium [Moles/Vol] 140 mmol/L 135 - 145 mmol/L [place] Urea nitrogen [Mass/Vol] 10 mg/dL 7 - 20 mg/dL [place] CBC auto differentialon 12-0 Absolute Baso # 0.1 10*3/uL 0 - 0.2 10*3/uL [place], [place] Absolute Neut # 4.4 10*3/uL 1.8 - 7 10*3/uL [place] Basophils/100 WBC (Bld) 0.8 % 0 - 2 % [place] Eosinophils (Bld) [#/Vol] 0.2 10*3/uL 0 - 0.5 10*3/uL [place] Eosinophils/100 WBC (Bld) 2.8 % 1 - 6 % [place] Erythrocyte distribution width (RBC) [Ratio] 13.7 % 11.5 - 14.5 % [place] Granulocytes/100 WBC (Bld) 60.0 % 40 - 80 % [place] Hematocrit (Bld) [Volume fraction] 44.1 % 40 - 52 % [place] Hemoglobin (Bld) [Mass/Vol] 15.5 g/dL 13 - 18 g/dL [place] Lymphocytes (Bld) [#/Vol] 2.3 10*3/uL 1 - 4.3 10*3/uL [place] Lymphocytes/100 WBC (Bld) 30.7 % 20 - 40 % [place] MCH (RBC) [Entitic mass] 29.2 pg 26 - 34 pg [place] MCHC (RBC) [Mass/Vol] 35.2 % 32 - 36 % [place] MCV (RBC) [Entitic vol] 82.9 fL 80 - 98 fL [place], [place] Monocytes (Bld) [#/Vol] 0.4 10*3/uL 0 - 0.8 10*3/uL [place], [place] Monocytes/100 WBC (Bld) 5.7 % 2 - 10 % [place] Platelet mean volume (Bld) [Entitic vol] 7.5 fL 7.4 - 10.4 fL [place] Platelets (Bld) [#/Vol] 196 10*3/uL 140 - 440 10*3/uL [place] RBC (Bld) [#/Vol] 5.32 10*6/uL 4.4 - 5.9 10*6/uL [place] WBC (Bld) [#/Vol] 7.4 10*3/uL 3.6 - 10.7 10*3/uL [place] Test Performed by [facility], [address] [place] [address] [place], [place] Glucose,Bedsideon 10-06-2019 Glucose [Mass/Vol] 257 mg/dL High 70-100 [facility] Comment on above: Result Comment: Test performed by glucose meter. Results may be 10%-15% lower than serum/plasma values. (CLIA ID [id number]) Performed By: #### B MP3, HEMDF #### [address] [place] [address] Glucose [Mass/Vol] 288 mg/dL High 70-100 [facility] Comment on above: Result Comment: Test performed by glucose meter. Results may be 10%-15% lower than serum/plasma values. (CLIA ID [id number]) Performed By: #### B MP3, HEMDF #### [facility] [address], [place] Glucose [Mass/Vol] 198 mg/dL High 70-100 [facility] Comment on above: Result Comment: Test performed by glucose meter. Results may be 10%-15% lower than serum/plasma values. (CLIA ID [id number]) Performed By: #### B GLU #### [facility] [address], [place] Glucose [Mass/Vol] 226 mg/dL High 70-100 [facility] Comment on above: Result Comment: Test performed by glucose meter. Results may be 10%-15% lower than serum/plasma values. (CLIA ID [id number]) Performed By: #### B GLU #### [facility] [address] [place], [place] Glucose [Mass/Vol] 207 mg/dL High 70-100 [facility] Comment on above: Result Comment: Test performed by glucose meter. Results may be 10%-15% lower than serum/plasma values. (CLIA ID [id number]) Performed By: #### B GLU #### [address] [place], [place] Glucose [Mass/Vol] 200 mg/dL High 70-100 [facility] Comment on above: Result Comment: Test performed by glucose meter. Results may be 10%-15% lower than serum/plasma values. (CLIA ID [id number]) Performed By: #### B GLU #### [facility] [address], [place] Hemogram w/ Autodiffon 10-06 Abs Baso Cnt 0.1 10*3/uL Normal 0.0-0.2 [facility] Comment on above: Performed By: #### H EMDF, BMP3M, MG3 #### [facility] [address], [place] Abs Neutrophile Cnt 4.4 10*3/uL Normal 1.8-7.0 [facility] Comment on above: Performed By: #### H EMDF, BMP3M, MG3 #### [address] [place] [address] Basophils/100 WBC (Bld) 0.8 % Normal 0.0-2.0 [facility] Comment on above: Performed By: #### H EMDF, BMP3M, MG3 #### [address] [place] [address] Eosinophils (Bld) [#/Vol] 0.2 10*3/uL Normal 0.0-0.5 [facility] Comment on above: Performed By: #### H EMDF, BMP3M, MG3 #### [address] [place] [address] Eosinophils/100 WBC (Bld) 2.8 % Normal 1.0-6.0 [facility] Comment on above: Performed By: #### H EMDF, BMP3M, MG3 #### [address] [place], [place] Erythrocyte distribution width (RBC) [Ratio] 13.7 % Normal 11.5-14.5 [facility] Comment on above: Performed By: #### H EMDF, BMP3M, MG3 #### [address] [place] [address] Granulocytes/100 WBC (Bld) 60.0 % Normal 40.0-80.0 [facility] Comment on above: Performed By: #### H EMDF, BMP3M, MG3 #### [address] [place] [address] Hematocrit (Bld) [Volume fraction] 44.1 % Normal 40.0-52.0 [facility] Comment on above: Performed By: #### H EMDF, BMP3M, MG3 #### [address] [place] [address] Hemoglobin (Bld) [Mass/Vol] 15.5 g/dL Normal 13.0-18.0 [facility] Comment on above: Performed By: #### H EMDF, BMP3M, MG3 #### [address] [place], [place] Lymphocytes (Bld) [#/Vol] 2.3 10*3/uL Normal 1.0-4.3 [facility] Comment on above: Performed By: #### H EMDF, BMP3M, MG3 #### [address] [place], [place] Lymphocytes/100 WBC (Bld) 30.7 % Normal 20.0-40.0 [facility] Comment on above: Performed By: #### H EMDF, BMP3M, MG3 #### [address] MCH (RBC) [Entitic mass] 29.2 pg Normal 26.0-34.0 [facility] Comment on above: Performed By: #### H EMDF, BMP3M, MG3 #### [address] MCHC (RBC) [Mass/Vol] 35.2 % Normal 32.0-36.0 [facility] Comment on above: Performed By: #### H EMDF, BMP3M, MG3 #### [address] MCV (RBC) [Entitic vol] 82.9 fL Normal 80.0-98.0 [facility] Comment on above: Performed By: #### H EMDF, BMP3M, MG3 #### [address] Monocytes (Bld) [#/Vol] 0.4 10*3/uL Normal 0.0-0.8 [facility] Comment on above: Performed By: #### H EMDF, BMP3M, MG3 #### [address] Monocytes/100 WBC (Bld) 5.7 % Normal 2.0-10.0 [facility] Comment on above: Performed By: #### H EMDF, BMP3M, MG3 #### [address] [place] [address] Platelet mean volume (Bld) [Entitic vol] 7.5 fL Normal 7.4-10.4 [facility] Comment on above: Performed By: #### H EMDF, BMP3M, MG3 #### [address] [place] [address] Platelets (Bld) [#/Vol] 196 10*3/uL Normal 140-440 [facility] Comment on above: Performed By: #### H EMDF, BMP3M, MG3 #### [address] [place] [address] RBC (Bld) [#/Vol] 5.32 10*6/uL Normal 4.40-5.90 [facility] Comment on above: Performed By: #### H EMDF, BMP3M, MG3 #### [address] [place] [address] WBC (Bld) [#/Vol] 7.4 10*3/uL Normal 3.6-10.7 [facility] Comment on above: Performed By: #### H EMDF, BMP3M, MG3 #### [address] [place] [address] Magnesiumon 10-06-2019 Magnesium [Mass/Vol] 1.5 mg/dL Low 1.6-2.3 [facility] Comment on above: Performed By: #### H EMDF, BMP3M, MG3 #### [address] [place] [address] Magnesium [Mass/Vol] 1.5 mg/dL Low 1.6 - 2 .3 mg/dL [place] Otheron 10-06-2019 Interpretation and review of laboratory results Abnormal [place] Test Performed by [place] [address] [place] [address] [place], [place] POCT Glucoseon 10-06-2019 Glucose [Mass/Vol] 257 mg/dL High 70 - 100 mg/dL [facility] [place] [place] Comment on above: Test performed by gl ucose meter. Results may be 10%-15% lower than serum/plasma values. (CLIA ID [id number]) Interpretation and review of laboratory results Abnormal [facility] [place] Test Performed by [facility], [address] [place] [address] [facility] [place] Glucose [Mass/Vol] 288 mg/dL High 70 - 100 mg/dL [facility] [place] Comment on above: Test performed by gl ucose meter. Results may be 10%-15% lower than serum/plasma values. (CLIA ID [id number]) Interpretation and review of laboratory results Abnormal [facility] [place] Test Performed by [facility], [address] [address] [facility] [place] Glucose [Mass/Vol] 198 mg/dL High 70 - 100 mg/dL [facility] [place] Comment on above: Test performed by gl ucose meter. Results may be 10%-15% lower than serum/plasma values. (CLIA ID [id number]) Interpretation and review of laboratory results Abnormal [facility] [place] Test Performed by [facility], [address] [address] [facility] [place] Glucose [Mass/Vol] 226 mg/dL High 70 - 100 mg/dL [facility] [place] Comment on above: Test performed by gl ucose meter. Results may be 10%-15% lower than serum/plasma values. (CLIA ID [id number]) Interpretation and review of laboratory results Abnormal [facility] [place] Test Performed by [facility], [address] [place] [address] [facility] [place] Glucose [Mass/Vol] 207 mg/dL High 70 - 100 mg/dL [facility] [place] Comment on above: Test performed by gl ucose meter. Results may be 10%-15% lower than serum/plasma values. (CLIA ID [id number]) Interpretation and review of laboratory results Abnormal [facility] [place] Test Performed by [facility], [address] [place] [address] [facility] [place] Glucose [Mass/Vol] 200 mg/dL High 70 - 100 mg/dL [place] Comment on above: Test performed by gl ucose meter. Results may be 10%-15% lower than serum/plasma values. (CLIA ID [id number]) Interpretation and review of laboratory results Abnormal [place] Test Performed by [facility], [facility] [place] [address] [place] Surgical Pathologyon 019 Surgical Pathology [id number] [facility] PATHOLOGY AND LABORATORY MEDICINE [address] [place] [id number] FINAL SURGICAL PATHOLOGY REPORT ___ NAME: BENITO JERALD : 1960 59 Y [facility] [id number] LOCATION: [facility] 171 01 PROCEDURE 10/06/2019 DATE: SURGEON: BECCA RAMIREZ MD RECEIVED 10/08/2019 DATE: ATTENDING: JOCELYN VALENTIN M.D. REPORT DATE: 10/09/2019 COPIES TO: ___ DIAGNOSIS: STOMACH, BIOPSY - HELICOBACTER GASTRITIS WITH INTESTINAL METAPLASIA NEGATIVE FOR DYSPLASIA IVN/TABITHA Signature> TAQUERIA HAY M.D. ___ CLINICAL INFORMATION: Abdominal pain SPECIMEN: GASTRIC BIOPSY ___ GROSS DESCRIPTION: Gastric biopsy Received in formalin are four segments of gabriel tissue 0.2 to 0.4 cm. Submitted in toto. (4 ns, 1) JCK/TABITHA Disclaimer: The following statement applies to all immunohistochemistry, in situ hybridization, molecular studies, and immunofluorescence testing. The use of one or more reagents in the above tests is regulated as an analyte specific reagent (ASR). These tests were developed and their performance characteristics determined by the clinical laboratories of [facility]. They have not been cleared by the [place] Food and Drug Administration (FDA). The FDA has determined that such clearance or approval is not necessary. All the above immunostains were performed on paraffin embedded tissue. Appropriate positive and negative controls (where applicable) were run in parallel with the patient's specimen; these controls showed expected staining pattern, with acceptable intensity of staining. Immunohistochemical assays have not been validated on decalcified tissues. Results should be interpreted with caution given the raised possibility of false negativity on decalcified specimens. Professional Performing Location: [place] [address]. DEPARTMENT OF PATHOLOGY AND LABORATORY MEDICINE [place], [place] [address] Normal [facility] Basic Metabolic Panelon 12-0 Anion gap [Moles/Vol] 9 Normal [facility] Comment on above: Performed By: #### B MP3, HEMDF #### [address] [address] Calcium [Mass/Vol] 9.3 mg/dL Normal 8.4-10.4 [facility] Comment on above: Performed By: #### Kathi MP3, HEMDF #### [address] [address] CO2 [Moles/Vol] 24 mmol/L Normal 22-30 [facility] Comment on above: Performed By: #### Kathi MP3, HEMDF #### [address], [place] Glucose [Mass/Vol] 317 mg/dL High 70-100 [facility] Comment on above: Performed By: #### B MP3, HEMDF #### [facility] [address], [place] Urea nitrogen [Mass/Vol] 11 mg/dL Normal 7-20 [facility] Comment on above: Performed By: #### B MP3, HEMDF #### [address] [place], [place] Creatinine [Mass/Vol] 0.71 mg/dL Normal 0.52-1.25 [facility] Comment on above: Performed By: #### B MP3, HEMDF #### [address] [place], [place] GFR/1.73 sq M predicted among blacks MDRD (S/P/Bld) [Vol rate/Area] mL/min/{1.73_m2} Normal >60 [facility] Comment on above: Performed By: #### B MP3, HEMDF #### [address] [place], [place] GFR/1.73 sq M predicted among non-blacks MDRD (S/P/Bld) [Vol rate/Area] mL/min/{1.73_m2} Normal >60 [facility] Comment on above: Result Comment: Sour ce- MDRD equation with creatinine calibration to IDMS(NKDEP) eGFR not recommended for drug dose adjustment Performed By: #### B MP3, HEMDF #### [address] [place], [place] Chloride [Moles/Vol] 104 mmol/L Normal 98-107 [facility] Comment on above: Performed By: #### B MP3, HEMDF #### [address] [place] [place], [place] Potassium [Moles/Vol] 4.1 mmol/L Normal 3.5-5.1 [facility] Comment on above: Performed By: #### B MP3, HEMDF #### [address] [place], [place] Sodium [Moles/Vol] 137 mmol/L Normal 135-145 [facility] Comment on above: Performed By: #### B MP3, HEMDF #### [facility] [address], [place] Anion gap [Moles/Vol] 9 mmol/L [place] Calcium [Mass/Vol] 9.3 mg/dL 8.4 - 10. 4 mg/dL [place], [place] Chloride [Moles/Vol] 104 mmol/L 98 - 10 7 mmol/L [place] CO2 [Moles/Vol] 24 mmol/L 22 - 30 mmol/L [place] Creatinine [Mass/Vol] 0.71 mg/dL 0.52 - 1.25 mg/dL [place] EGFR IF NonAfrican Taiwanese >60.0 >60 mL/min [place] Comment on above: Source- MDRD equatio n with creatinine calibration to IDMS(NKDEP) eGFR not recommended for drug dose adjustment GFR/1.73 sq M predicted among blacks MDRD (S/P/Bld) [Vol rate/Area] mL/min/{1.73_m2} >60 mL/min [place] Glucose [Mass/Vol] 317 mg/dL High 70 - 100 mg/dL [place] Interpretation and review of laboratory results Abnormal [place] Potassium [Moles/Vol] 4.1 mmol/L 3.5 - 5.1 mmol/L [place] Sodium [Moles/Vol] 137 mmol/L 135 - 145 mmol/L [place] Urea nitrogen [Mass/Vol] 11 mg/dL 7 - 20 mg/dL [place] Test Performed by [facility], [address], [place] CBC Auto Differentialon 12-0 Absolute Baso # 0.0 10*3/uL 0 - 0.2 10*3/uL [place] Absolute Neut # 3.9 10*3/uL 1.8 - 7 10*3/uL [place] Basophils/100 WBC (Bld) 0.7 % 0 - 2 % [place] Eosinophils (Bld) [#/Vol] 0.2 10*3/uL 0 - 0.5 10*3/uL [place] Eosinophils/100 WBC (Bld) 2.6 % 1 - 6 % [place] Erythrocyte distribution width (RBC) [Ratio] 13.5 % 11.5 - 14.5 % [place] Granulocytes/100 WBC (Bld) 62.2 % 40 - 80 % [place] Hematocrit (Bld) [Volume fraction] 42.8 % 40 - 52 % [place] Hemoglobin (Bld) [Mass/Vol] 15.0 g/dL 13 - 18 g/dL [place] Lymphocytes (Bld) [#/Vol] 1.7 10*3/uL 1 - 4.3 10*3/uL [place] Lymphocytes/100 WBC (Bld) 27.4 % 20 - 40 % [place] MCH (RBC) [Entitic mass] 28.8 pg 26 - 34 pg [place] MCHC (RBC) [Mass/Vol] 35.1 % 32 - 36 % [place] MCV (RBC) [Entitic vol] 82.3 fL 80 - 98 fL [place] Monocytes (Bld) [#/Vol] 0.4 10*3/uL 0 - 0.8 10*3/uL [place] Monocytes/100 WBC (Bld) 7.1 % 2 - 10 % [place] Platelet mean volume (Bld) [Entitic vol] 7.4 fL 7.4 - 10.4 fL [place] Platelets (Bld) [#/Vol] 162 10*3/uL 140 - 440 10*3/uL [place] RBC (Bld) [#/Vol] 5.20 10*6/uL 4.4 - 5.9 10*6/uL [place] WBC (Bld) [#/Vol] 6.2 10*3/uL 3.6 - 10.7 10*3/uL [facility], [place] Test Performed by [facility], [address], [place] [address] [facility], [place] Glucose,Bedsideon 10-05-2019 Glucose [Mass/Vol] 214 mg/dL High 70-100 [facility] Comment on above: Result Comment: Test performed by glucose meter. Results may be 10%-15% lower than serum/plasma values. (CLIA ID [id number]) Performed By: #### B GLU #### [facility] [address] [place] [address] Hemogram w/ Autodiffon 10-05 Abs Baso Cnt 0.0 10*3/uL Normal 0.0-0.2 [facility] Comment on above: Performed By: #### B MP3, HEMDF #### [facility] [address] [place] [address] Abs Neutrophile Cnt 3.9 10*3/uL Normal 1.8-7.0 [facility] Comment on above: Performed By: #### B MP3, HEMDF #### [facility] [address] [place] [address] Basophils/100 WBC (Bld) 0.7 % Normal 0.0-2.0 [facility] Comment on above: Performed By: #### B MP3, HEMDF #### [facility] [address] [place] [address] Eosinophils (Bld) [#/Vol] 0.2 10*3/uL Normal 0.0-0.5 [facility] Comment on above: Performed By: #### B MP3, HEMDF #### [facility] [address] [place] [address] Eosinophils/100 WBC (Bld) 2.6 % Normal 1.0-6.0 [facility] Comment on above: Performed By: #### B MP3, HEMDF #### [facility] [address] [place] [address] Erythrocyte distribution width (RBC) [Ratio] 13.5 % Normal 11.5-14.5 [facility] Comment on above: Performed By: #### B MP3, HEMDF #### [facility] [address], [place] Granulocytes/100 WBC (Bld) 62.2 % Normal 40.0-80.0 [facility] Comment on above: Performed By: #### B MP3, HEMDF #### [facility] [address], [place] Hematocrit (Bld) [Volume fraction] 42.8 % Normal 40.0-52.0 [facility] Comment on above: Performed By: #### B MP3, HEMDF #### [place] [address], [place] Hemoglobin (Bld) [Mass/Vol] 15.0 g/dL Normal 13.0-18.0 [facility] Comment on above: Performed By: #### B MP3, HEMDF #### [place] [address] [place], [place] Lymphocytes (Bld) [#/Vol] 1.7 10*3/uL Normal 1.0-4.3 [facility] Comment on above: Performed By: #### B MP3, HEMDF #### [place] [address], [place] Lymphocytes/100 WBC (Bld) 27.4 % Normal 20.0-40.0 [facility] Comment on above: Performed By: #### B MP3, HEMDF #### [place] [address], [place] MCH (RBC) [Entitic mass] 28.8 pg Normal 26.0-34.0 [facility] Comment on above: Performed By: #### B MP3, HEMDF #### [place] [address], [place] MCHC (RBC) [Mass/Vol] 35.1 % Normal 32.0-36.0 [facility] Comment on above: Performed By: #### B MP3, HEMDF #### [place] [address] [place] [address] MCV (RBC) [Entitic vol] 82.3 fL Normal 80.0-98.0 [facility] Comment on above: Performed By: #### B MP3, HEMDF #### [place] [address] [place], [place] Monocytes (Bld) [#/Vol] 0.4 10*3/uL Normal 0.0-0.8 [facility] Comment on above: Performed By: #### B MP3, HEMDF #### [place] [address] [place], [place] Monocytes/100 WBC (Bld) 7.1 % Normal 2.0-10.0 [facility] Comment on above: Performed By: #### B MP3, HEMDF #### [place] [address] [place], [place] Platelet mean volume (Bld) [Entitic vol] 7.4 fL Normal 7.4-10.4 [facility] Comment on above: Performed By: #### B MP3, HEMDF #### [place] [address] [place], [place] Platelets (Bld) [#/Vol] 162 10*3/uL Normal 140-440 [facility] Comment on above: Performed By: #### B MP3, HEMDF #### [place] [address] [place], [place] RBC (Bld) [#/Vol] 5.20 10*6/uL Normal 4.40-5.90 [facility] Comment on above: Performed By: #### B MP3, HEMDF #### [place] [address] [place], [place] WBC (Bld) [#/Vol] 6.2 10*3/uL Normal 3.6-10.7 [facility] Comment on above: Performed By: #### B MP3, HEMDF #### [place] [address] [place], [place] POCT Glucoseon 10-05-2019 Glucose [Mass/Vol] 214 mg/dL High 70 - 100 mg/dL [facility] [place] Comment on above: Test performed by gl ucose meter. Results may be 10%-15% lower than serum/plasma values. (CLIA ID [id number]) Interpretation and review of laboratory results Abnormal [place], [place] Test Performed by [address] [address] [place], [place] Culture, urine Bacteria identified Cx Nom (U) Culture exhibits no growth. [facility] Work Phone: Laboratory - Microbiology an d Antimicrobial susceptibility Bacteria identified Cx Nom (Bld) No growth in 5 days. [facility] Work Phone: No Panel Information SARS-CoV-2 & FLU Antigen (Rapid) [facility] Work Phone: Vital Signs Date Time Vital Sign Value Performing Clinician Facility 03-26-2025 21:56-0400 Body mass index (BMI) [Ratio] 25.2 kg/m2 Dr. Pedro Krishnan DO Work Phone: [facility] 03-26-2025 21:56-0400 Body weight 96.[address] Pedro Krishnan DO Work Phone: [facility] 03-26-2025 20:09-0400 Body height 195.[address] Pedro Krishnan DO Work Phone: [facility] 03-26-2025 20:09-0400 Body temperature 97.6 [degF] Dr. Pedro Krishnan DO Work Phone: [facility] 03-26-2025 20:09-0400 Diastolic blood pressure 76 mm[Hg] Dr. Pedro Krishnan DO Work Phone: [facility] 03-26-2025 20:09-0400 Heart rate 71 /min Dr. Pedro Krishnan DO Work Phone: [facility] 03-26-2025 20:09-0400 Respiratory rate 18 /min Dr. Pedro Krishnan DO Work Phone: [facility] 03-26-2025 20:09-0400 SaO2% (BldA) [Mass fraction] 99 % Dr. Pedro Krishnan DO Work Phone: [facility] 03-26-2025 20:09-0400 Systolic blood pressure 146 mm[Hg] Dr. Pedro Krishnan DO Work Phone: [facility] 02-16-2025 07:41-0400 Body temperature 98 [degF] Dr. Linden Chavez DO Work Phone: [facility] 02-16-2025 07:41-0400 Diastolic blood pressure 98 mm[Hg] Dr. Linden Chavez DO Work Phone: [facility] 02-16-2025 07:41-0400 Heart rate 77 /min Dr. Linden Chavez DO Work Phone: [facility] 02-16-2025 07:41-0400 Respiratory rate 19 /min Dr. Linden Chavez DO Work Phone: [facility] 02-16-2025 07:41-0400 SaO2% (BldA) [Mass fraction] 99 % Dr. Linden Chavez DO Work Phone: [facility] 02-16-2025 07:41-0400 Systolic blood pressure 107 mm[Hg] Dr. Linden Chavez DO Work Phone: [facility] 02-16-2025 04:01-0400 Body height 195.[address] Linden Chavez DO Work Phone: [facility] 02-16-2025 04:01-0400 Body mass index (BMI) [Ratio] 24.7 kg/m2 Dr. Linden Chavez DO Work Phone: [facility] 02-16-2025 04:01-0400 Body weight 94.[address] Linden Chavez DO Work Phone: [facility] 12-27-2024 01:46-0500 Body temperature 97.9 [degF] Dr. Linden Chavez DO Work Phone: [facility] 12-27-2024 01:46-0500 Diastolic blood pressure 80 mm[Hg] Dr. Linden Chavez DO Work Phone: [facility] 12-27-2024 01:46-0500 Heart rate 82 /min Dr. Linden Chavez DO Work Phone: [facility] 12-27-2024 01:46-0500 Respiratory rate 18 /min Dr. Linden Chavez DO Work Phone: [facility] 12-27-2024 01:46-0500 SaO2% (BldA) [Mass fraction] 95 % Dr. Linden Chavez DO Work Phone: [facility] 12-27-2024 01:46-0500 Systolic blood pressure 129 mm[Hg] Dr. Linden Chavez DO Work Phone: [facility] 12-26-2024 23:51-0500 Body mass index (BMI) [Ratio] 25.4 kg/m2 Dr. Linden Chavez DO Work Phone: [facility] 12-26-2024 23:51-0500 Body weight 97.[address] Linden Chavez DO Work Phone: [facility] 12-20-2024 20:13-0500 Body temperature 97.8 [degF] Dr. Linden Chavez DO Work Phone: [facility] 12-20-2024 20:13-0500 Diastolic blood pressure 98 mm[Hg] Dr. Linden Chavez DO Work Phone: [facility] 12-20-2024 20:13-0500 Heart rate 98 /min Dr. Linden Chavez DO Work Phone: [facility] 12-20-2024 20:13-0500 Respiratory rate 18 /min Dr. Linden Chavez DO Work Phone: [facility] 12-20-2024 20:13-0500 SaO2% (BldA) [Mass fraction] 97 % Dr. Linden Chavez DO Work Phone: [facility] 12-20-2024 20:13-0500 Systolic blood pressure 130 mm[Hg] Dr. Linden Chavez DO Work Phone: [facility] 12-14-2024 09:29-0500 Body mass index (BMI) [Ratio] 27.02 kg/m2 Ion Moomaw BANKING SERVICES OFFICER.DEBIT AGENT Work Phone: [facility] 12-14-2024 09:29-0500 Body temperature 97.11 [degF] Ion Moomaw BANKING SERVICES OFFICER.DEBIT AGENT Work Phone: [facility] 12-14-2024 09:29-0500 Body weight 98.7 kg Ion Moomaw BANKING SERVICES OFFICER.DEBIT AGENT Work Phone: [facility] 12-14-2024 09:29-0500 Diastolic blood pressure 70 mm[Hg] Ion Moomaw BANKING SERVICES OFFICER.DEBIT AGENT Work Phone: [facility] 12-14-2024 09:29-0500 Heart rate 77 /min Ion Moomaw BANKING SERVICES OFFICER.DEBIT AGENT Work Phone: [facility] 12-14-2024 09:29-0500 Respiratory rate 18 /min Ion Moomaw BANKING SERVICES OFFICER.DEBIT AGENT Work Phone: [facility] 12-14-2024 09:29-0500 SaO2% (BldA) [Mass fraction] 97 % Ion Moomaw BANKING SERVICES OFFICER.DEBIT AGENT Work Phone: [facility] 12-14-2024 09:29-0500 Systolic blood pressure 105 mm[Hg] Ion Moomaw BANKING SERVICES OFFICER.DEBIT AGENT Work Phone: [facility] 12-08-2024 14:52-0500 Body temperature 97.4 [degF] Dr. Linden Chavez DO Work Phone: [facility] 12-08-2024 14:52-0500 Diastolic blood pressure 102 mm[Hg] Dr. Linden Chavez DO Work Phone: [facility] 12-08-2024 14:52-0500 Heart rate 86 /min Dr. Linden Chavez DO Work Phone: [facility] 12-08-2024 14:52-0500 Respiratory rate 18 /min Dr. Linden Chavez DO Work Phone: [facility] 12-08-2024 14:52-0500 SaO2% (BldA) [Mass fraction] 95 % Dr. Linden Chavez DO Work Phone: [facility] 12-08-2024 14:52-0500 Systolic blood pressure 160 mm[Hg] Dr. Linden Chavez DO Work Phone: [facility] 12-08-2024 12:21-0500 Body mass index (BMI) [Ratio] 26.4 kg/m2 Dr. Linden Chavez DO Work Phone: [facility] 12-08-2024 12:21-0500 Body weight 101.[address] Linden Chavez DO Work Phone: [facility] 11-27-2024 16:07-0500 Body temperature 97.9 [degF] Dr. Linden Chavez DO Work Phone: [facility] 11-27-2024 16:07-0500 Diastolic blood pressure 69 mm[Hg] Dr. Linden Chavez DO Work Phone: [facility] 11-27-2024 16:07-0500 Heart rate 88 /min Dr. Linden Chavez DO Work Phone: [facility] 11-27-2024 16:07-0500 Respiratory rate 18 /min Dr. Linden Chavez DO Work Phone: [facility] 11-27-2024 16:07-0500 SaO2% (BldA) [Mass fraction] 96 % Dr. Linden Chavez DO Work Phone: [facility] 11-27-2024 16:07-0500 Systolic blood pressure 138 mm[Hg] Dr. Linden Chavez DO Work Phone: [facility] 10-30-2024 03:11-0500 Body temperature 97.4 [degF] Dr. Linden Chavez DO Work Phone: [facility] 10-30-2024 03:11-0500 Diastolic blood pressure 89 mm[Hg] Dr. Linden Chavez DO Work Phone: [facility] 10-30-2024 03:11-0500 Heart rate 77 /min Dr. Linden Chavez DO Work Phone: [facility] 10-30-2024 03:11-0500 Respiratory rate 18 /min Dr. Linden Chavez DO Work Phone: [facility] 10-30-2024 03:11-0500 SaO2% (BldA) [Mass fraction] 95 % Dr. Linden Chavez DO Work Phone: [facility] 10-30-2024 03:11-0500 Systolic blood pressure 103 mm[Hg] Dr. Linden Chavez DO Work Phone: [facility] 10-19-2024 06:50-0500 Body temperature 98.3 [degF] Dr. Linden Chavez DO Work Phone: [facility] 10-19-2024 06:50-0500 Diastolic blood pressure 75 mm[Hg] Dr. Linden Chavez DO Work Phone: [facility] 10-19-2024 06:50-0500 Heart rate 75 /min Dr. Linden Chavez DO Work Phone: [facility] 10-19-2024 06:50-0500 Respiratory rate 18 /min Dr. Linden Chavez DO Work Phone: [facility] 10-19-2024 06:50-0500 SaO2% (BldA) [Mass fraction] 96 % Dr. Linden Chavez DO Work Phone: [facility] 10-19-2024 06:50-0500 Systolic blood pressure 107 mm[Hg] Dr. Linden Chavez DO Work Phone: [facility] 10-19-2024 03:58-0500 Body mass index (BMI) [Ratio] 25.9 kg/m2 Dr. Linden Chavez DO Work Phone: [facility] 10-19-2024 03:58-0500 Body weight 99.[address] Linden Chavez DO Work Phone: [facility] 05-10-2024 19:42-0400 Body mass index (BMI) [Ratio] 27.65 kg/m2 Rosa Quinones BANKING SERVICES OFFICER.DEBIT AGENT Work Phone: [facility] 05-10-2024 19:42-0400 Body temperature 97.5 [degF] Rosa Quinones BANKING SERVICES OFFICER.DEBIT AGENT Work Phone: [facility] 05-10-2024 19:42-0400 Body weight 101 kg Rosa Quinones BANKING SERVICES OFFICER.DEBIT AGENT Work Phone: [facility] 05-10-2024 19:42-0400 Diastolic blood pressure 81 mm[Hg] Rosa Quinones BANKING SERVICES OFFICER.DEBIT AGENT Work Phone: [facility] 05-10-2024 19:42-0400 Heart rate 72 /min Rosa Quinones BANKING SERVICES OFFICER.DEBIT AGENT Work Phone: [facility] 05-10-2024 19:42-0400 Respiratory rate 20 /min Rosa Quinones BANKING SERVICES OFFICER.DEBIT AGENT Work Phone: [facility] 05-10-2024 19:42-0400 SaO2% (BldA) [Mass fraction] 96 % Rosa Quinones BANKING SERVICES OFFICER.DEBIT AGENT Work Phone: [facility] 05-10-2024 19:42-0400 Systolic blood pressure 135 mm[Hg] Rosa Quinones BANKING SERVICES OFFICER.DEBIT AGENT Work Phone: [facility] 03-09-2024 02:47-0400 Body temperature 98.7 [degF] [facility] 03-09-2024 02:47-0400 Diastolic blood pressure 71 mm[Hg] [facility] 03-09-2024 02:47-0400 Heart rate 79 /min [facility] 03-09-2024 02:47-0400 Respiratory rate 16 /min [facility] 03-09-2024 02:47-0400 SaO2% (BldA) [Mass fraction] 99 % [facility] 03-09-2024 02:47-0400 Systolic blood pressure 136 mm[Hg] [facility] 03-09-2024 01:35-0400 Body height 195.58 cm [facility] 03-09-2024 01:35-0400 Body mass index (BMI) [Ratio] 26.1 kg/m2 [facility] 03-09-2024 01:35-0400 Body weight 100 kg [facility] 03-08-2024 10:04-0400 Body temperature 98.4 [degF] [facility] 03-08-2024 10:04-0400 Diastolic blood pressure 87 mm[Hg] [facility] 03-08-2024 10:04-0400 Heart rate 79 /min [facility] 03-08-2024 10:04-0400 Respiratory rate 17 /min [facility] 03-08-2024 10:04-0400 SaO2% (BldA) [Mass fraction] 96 % [facility] 03-08-2024 10:04-0400 Systolic blood pressure 142 mm[Hg] [facility] 03-08-2024 06:24-0400 Body height 195.58 cm [facility] 03-08-2024 06:24-0400 Body mass index (BMI) [Ratio] 27.3 kg/m2 [facility] 03-08-2024 06:24-0400 Body weight 104.7 kg [facility] 02-08-2024 00:47-0400 Body temperature 98.4 [degF] [facility] 02-08-2024 00:47-0400 Diastolic blood pressure 67 mm[Hg] [facility] 02-08-2024 00:47-0400 Heart rate 92 /min [facility] 02-08-2024 00:47-0400 Respiratory rate 16 /min [facility] 02-08-2024 00:47-0400 SaO2% (BldA) [Mass fraction] 95 % [facility] 02-08-2024 00:47-0400 Systolic blood pressure 114 mm[Hg] [facility] 02-07-2024 19:16-0400 Body height 195.58 cm [facility] 02-07-2024 19:16-0400 Body mass index (BMI) [Ratio] 26.7 kg/m2 [facility] 02-07-2024 19:16-0400 Body weight 102.42 kg [facility] 01-27-2024 06:12-0400 Body temperature 97.8 [degF] [facility] 01-27-2024 06:12-0400 Diastolic blood pressure 60 mm[Hg] [facility] 01-27-2024 06:12-0400 Heart rate 66 /min [facility] 01-27-2024 06:12-0400 Respiratory rate 18 /min [facility] 01-27-2024 06:12-0400 SaO2% (BldA) [Mass fraction] 98 % [facility] 01-27-2024 06:12-0400 Systolic blood pressure 100 mm[Hg] [facility] 01-26-2024 23:30-0400 Body height 195.58 cm [facility] 01-26-2024 23:30-0400 Body mass index (BMI) [Ratio] 27.5 kg/m2 [facility] 01-26-2024 23:30-0400 Body weight 105.2 kg [facility] 12-25-2023 11:45-0500 Body temperature 97.4 [degF] [facility] 12-25-2023 11:45-0500 Diastolic blood pressure 81 mm[Hg] [facility] 12-25-2023 11:45-0500 Heart rate 74 /min [facility] 12-25-2023 11:45-0500 Respiratory rate 16 /min [facility] 12-25-2023 11:45-0500 SaO2% (BldA) [Mass fraction] 97 % [facility] 12-25-2023 11:45-0500 Systolic blood pressure 147 mm[Hg] [facility] 12-25-2023 08:45-0500 Body height 195.58 cm [facility] 12-25-2023 08:45-0500 Body mass index (BMI) [Ratio] 26.7 kg/m2 [facility] 12-25-2023 08:45-0500 Body weight 102.3 kg [facility] 12-18-2023 17:53-0500 Body temperature 98.2 [degF] [facility] 12-18-2023 17:53-0500 Diastolic blood pressure 61 mm[Hg] [facility] 12-18-2023 17:53-0500 Heart rate 77 /min [facility] 12-18-2023 17:53-0500 Respiratory rate 18 /min [facility] 12-18-2023 17:53-0500 SaO2% (BldA) [Mass fraction] 97 % [facility] 12-18-2023 17:53-0500 Systolic blood pressure 109 mm[Hg] [facility] 12-18-2023 16:22-0500 Body mass index (BMI) [Ratio] 26.7 kg/m2 [facility] 12-18-2023 16:22-0500 Body weight 102.2 kg [facility] 12-18-2023 15:34-0500 Body height 195.58 cm [facility] 12-08-2023 14:42-0500 Respiratory rate 18 /min [facility] 12-08-2023 12:40-0500 Body height 195.58 cm [facility] 12-08-2023 12:40-0500 Body temperature 99.7 [degF] [facility] 12-08-2023 12:40-0500 Diastolic blood pressure 82 mm[Hg] [facility] 12-08-2023 12:40-0500 Heart rate 75 /min [facility] 12-08-2023 12:40-0500 SaO2% (BldA) [Mass fraction] 95 % [facility] 12-08-2023 12:40-0500 Systolic blood pressure 115 mm[Hg] [facility] 11-22-2023 17:37-0500 Diastolic blood pressure 74 mm[Hg] [facility] 11-22-2023 17:37-0500 Heart rate 71 /min [facility] 11-22-2023 17:37-0500 Respiratory rate 16 /min [facility] 11-22-2023 17:37-0500 SaO2% (BldA) [Mass fraction] 98 % [facility] 11-22-2023 17:37-0500 Systolic blood pressure 118 mm[Hg] [facility] 11-22-2023 14:21-0500 Body height 195.58 cm [facility] 11-22-2023 14:21-0500 Body mass index (BMI) [Ratio] 26.2 kg/m2 [facility] 11-22-2023 14:21-0500 Body temperature 97.6 [degF] [facility] 11-22-2023 14:21-0500 Body weight 100.4 kg [facility] 09-30-2023 23:40-0500 Body height 196.01 cm [facility] 09-30-2023 23:40-0500 Body mass index (BMI) [Ratio] 28.3 kg/m2 [facility] 09-30-2023 23:40-0500 Body temperature 97.7 [degF] [facility] 09-30-2023 23:40-0500 Body weight 108.86 kg [facility] 09-30-2023 23:40-0500 Diastolic blood pressure 77 mm[Hg] [facility] 09-30-2023 23:40-0500 Heart rate 77 /min [facility] 09-30-2023 23:40-0500 Respiratory rate 18 /min [facility] 09-30-2023 23:40-0500 SaO2% (BldA) [Mass fraction] 95 % [facility] 09-30-2023 23:40-0500 Systolic blood pressure 127 mm[Hg] [facility] 09-29-2023 23:39-0500 Diastolic blood pressure 83 mm[Hg] [facility] 09-29-2023 23:39-0500 Systolic blood pressure 132 mm[Hg] [facility] 09-29-2023 19:23-0500 Body height 195.58 cm [facility] 09-29-2023 19:23-0500 Body mass index (BMI) [Ratio] 28.4 kg/m2 [facility] 09-29-2023 19:23-0500 Body temperature 97.6 [degF] [facility] 09-29-2023 19:23-0500 Body weight 108.86 kg [facility] 09-29-2023 19:23-0500 Heart rate 82 /min [facility] 09-29-2023 19:23-0500 Respiratory rate 18 /min [facility] 09-29-2023 19:23-0500 SaO2% (BldA) [Mass fraction] 96 % [facility] 08-26-2023 05:07-0400 Body height 195.58 cm [facility] 08-26-2023 05:07-0400 Body mass index (BMI) [Ratio] 27.2 kg/m2 [facility] 08-26-2023 05:07-0400 Body temperature 97.3 [degF] [facility] 08-26-2023 05:07-0400 Body weight 104.3 kg [facility] 08-26-2023 05:07-0400 Diastolic blood pressure 80 mm[Hg] [facility] 08-26-2023 05:07-0400 Heart rate 78 /min [facility] 08-26-2023 05:07-0400 Respiratory rate 18 /min [facility] 08-26-2023 05:07-0400 SaO2% (BldA) [Mass fraction] 98 % [facility] 08-26-2023 05:07-0400 Systolic blood pressure 144 mm[Hg] [facility] 08-18-2023 15:51-0400 Body temperature 97.59 [degF] Jimmy Ramos APRN.CNP Work Phone: [facility] 08-18-2023 15:51-0400 Body weight 102.97 kg Jimmy Ramos APRN.CNP Work Phone: [facility] 08-18-2023 15:51-0400 Diastolic blood pressure 80 mm[Hg] [facility] BANKING SERVICES OFFICER.DEBIT AGENT Work Phone: [facility] 08-18-2023 15:51-0400 Heart rate 74 /min [facility] BANKING SERVICES OFFICER.DEBIT AGENT Work Phone: [facility] 08-18-2023 15:51-0400 Respiratory rate 20 /min [facility] BANKING SERVICES OFFICER.DEBIT AGENT Work Phone: [facility] 08-18-2023 15:51-0400 SaO2% (BldA) [Mass fraction] 98 % [facility] BANKING SERVICES OFFICER.DEBIT AGENT Work Phone: [facility] 08-18-2023 15:51-0400 Systolic blood pressure 127 mm[Hg] [facility] BANKING SERVICES OFFICER.DEBIT AGENT Work Phone: [facility] 07-29-2023 13:51-0400 Diastolic blood pressure 101 mm[Hg] [facility] 07-29-2023 13:51-0400 Heart rate 86 /min [facility] 07-29-2023 13:51-0400 Respiratory rate 16 /min [facility] 07-29-2023 13:51-0400 SaO2% (BldA) [Mass fraction] 88 % [facility] 07-29-2023 13:51-0400 Systolic blood pressure 135 mm[Hg] [facility] 07-29-2023 09:08-0400 Body mass index (BMI) [Ratio] 28.2 kg/m2 [facility] 07-29-2023 09:08-0400 Body temperature 97.5 [degF] [facility] 07-29-2023 09:08-0400 Body weight 107.95 kg [facility] 05-12-2023 15:52-0400 Body height 195.58 cm [facility] 05-12-2023 15:52-0400 Body mass index (BMI) [Ratio] 28.4 kg/m2 [facility] 05-12-2023 15:52-0400 Body temperature 97.1 [degF] [facility] 05-12-2023 15:52-0400 Body weight 108.86 kg [facility] 05-12-2023 15:52-0400 Diastolic blood pressure 76 mm[Hg] [facility] 05-12-2023 15:52-0400 Heart rate 72 /min [facility] 05-12-2023 15:52-0400 Respiratory rate 14 /min [facility] 05-12-2023 15:52-0400 SaO2% (BldA) [Mass fraction] 94 % [facility] 05-12-2023 15:52-0400 Systolic blood pressure 125 mm[Hg] [facility] 03-07-2023 05:36-0400 Diastolic blood pressure 88 mm[Hg] [facility] 03-07-2023 05:36-0400 Heart rate 81 /min [facility] 03-07-2023 05:36-0400 Respiratory rate 18 /min [facility] 03-07-2023 05:36-0400 SaO2% (BldA) [Mass fraction] 96 % [facility] 03-07-2023 05:36-0400 Systolic blood pressure 141 mm[Hg] [facility] 03-07-2023 01:11-0400 Body height 187.96 cm [facility] 03-07-2023 01:11-0400 Body mass index (BMI) [Ratio] 30.2 kg/m2 [facility] 03-07-2023 01:11-0400 Body temperature 97.9 [degF] [facility] 03-07-2023 01:11-0400 Body weight 106.9 kg [facility] 01-18-2023 09:50-0400 Diastolic blood pressure 66 mm[Hg] [facility] 01-18-2023 09:50-0400 Heart rate 72 /min [facility] 01-18-2023 09:50-0400 Respiratory rate 15 /min [facility] 01-18-2023 09:50-0400 SaO2% (BldA) [Mass fraction] 98 % [facility] 01-18-2023 09:50-0400 Systolic blood pressure 143 mm[Hg] [facility] 01-18-2023 07:58-0400 Body height 195.58 cm [facility] 01-18-2023 07:58-0400 Body mass index (BMI) [Ratio] 27.2 kg/m2 [facility] 01-18-2023 07:58-0400 Body temperature 97.9 [degF] [facility] 01-18-2023 07:58-0400 Body weight 104.2 kg [facility] 12-11-2022 19:20-0500 Diastolic blood pressure 93 mm[Hg] [facility] 12-11-2022 19:20-0500 Heart rate 77 /min [facility] 12-11-2022 19:20-0500 Respiratory rate 16 /min [facility] 12-11-2022 19:20-0500 SaO2% (BldA) [Mass fraction] 96 % [facility] 12-11-2022 19:20-0500 Systolic blood pressure 154 mm[Hg] [facility] 12-11-2022 16:13-0500 Body height 195.58 cm [facility] 12-11-2022 16:13-0500 Body mass index (BMI) [Ratio] 27.7 kg/m2 [facility] 12-11-2022 16:13-0500 Body temperature 96.5 [degF] [facility] 12-11-2022 16:13-0500 Body weight 106.14 kg [facility] 12-10-2022 12:37-0500 Heart rate 78 /min [facility] 12-10-2022 12:37-0500 Respiratory rate 18 /min [facility] 12-10-2022 09:48-0500 Body height 195.58 cm [facility] 12-10-2022 09:48-0500 Body mass index (BMI) [Ratio] 27.8 kg/m2 [facility] 12-10-2022 09:48-0500 Body temperature 97.9 [degF] [facility] 12-10-2022 09:48-0500 Body weight 106.59 kg [facility] 12-10-2022 09:48-0500 Diastolic blood pressure 73 mm[Hg] [facility] 12-10-2022 09:48-0500 SaO2% (BldA) [Mass fraction] 99 % [facility] 12-10-2022 09:48-0500 Systolic blood pressure 109 mm[Hg] [facility] 11-25-2022 15:13-0500 Diastolic blood pressure 69 mm[Hg] [facility] 11-25-2022 15:13-0500 Heart rate 81 /min [facility] 11-25-2022 15:13-0500 Respiratory rate 16 /min [facility] 11-25-2022 15:13-0500 SaO2% (BldA) [Mass fraction] 97 % [facility] 11-25-2022 15:13-0500 Systolic blood pressure 137 mm[Hg] [facility] 11-25-2022 13:07-0500 Body height 195.58 cm [facility] 11-25-2022 13:07-0500 Body mass index (BMI) [Ratio] 27.7 kg/m2 [facility] 11-25-2022 13:07-0500 Body temperature 97.6 [degF] [facility] 11-25-2022 13:07-0500 Body weight 106.14 kg [facility] 10-30-2022 04:24-0500 Diastolic blood pressure 71 mm[Hg] [facility] 10-30-2022 04:24-0500 Heart rate 79 /min [facility] 10-30-2022 04:24-0500 Respiratory rate 16 /min [facility] 10-30-2022 04:24-0500 SaO2% (BldA) [Mass fraction] 95 % [facility] 10-30-2022 04:24-0500 Systolic blood pressure 115 mm[Hg] [facility] 10-29-2022 21:00-0500 Body mass index (BMI) [Ratio] 27.8 kg/m2 [facility] 10-29-2022 21:00-0500 Body temperature 97.3 [degF] [facility] 10-29-2022 21:00-0500 Body weight 106.59 kg [facility] 09-18-2022 10:21-0500 Body height 195.58 cm [facility] Work Phone: 09-18-2022 10:21-0500 Body mass index (BMI) [Ratio] 27.7 kg/m2 [facility] 09-18-2022 10:21-0500 Body temperature 97.4 [degF] [facility] 09-18-2022 10:21-0500 Body weight 106.14 kg [facility] 09-18-2022 10:21-0500 Diastolic blood pressure 94 mm[Hg] [facility] 09-18-2022 10:21-0500 Heart rate 77 /min [facility] 09-18-2022 10:21-0500 Respiratory rate 16 /min [facility] 09-18-2022 10:21-0500 SaO2% (BldA) [Mass fraction] 99 % [facility] 09-18-2022 10:21-0500 Systolic blood pressure 106 mm[Hg] [facility] 08-07-2022 22:15-0400 Diastolic blood pressure 70 mm[Hg] [facility] 08-07-2022 22:15-0400 Heart rate 83 /min [facility] 08-07-2022 22:15-0400 Respiratory rate 16 /min [facility] 08-07-2022 22:15-0400 SaO2% (BldA) [Mass fraction] 98 % [facility] 08-07-2022 22:15-0400 Systolic blood pressure 120 mm[Hg] [facility] 08-07-2022 18:39-0400 Body height 195.58 cm [facility] Work Phone: 08-07-2022 18:39-0400 Body mass index (BMI) [Ratio] 28.4 kg/m2 [facility] 08-07-2022 18:39-0400 Body temperature 97.8 [degF] [facility] 08-07-2022 18:39-0400 Body weight 108.86 kg [facility] 07-03-2022 00:40-0400 Heart rate 77 /min No Primary Care Physician [facility] Work Phone: 07-03-2022 00:40-0400 Respiratory rate 18 /min No Primary Care Physician [facility] Work Phone: 07-02-2022 20:57-0400 Body height 195.58 cm No Primary Care Physician [facility] Work Phone: 07-02-2022 20:57-0400 Body mass index (BMI) [Ratio] 27.8 kg/m2 No Primary Care Physician [facility] Work Phone: 07-02-2022 20:57-0400 Body temperature 97.8 [degF] No Primary Care Physician [facility] Work Phone: 07-02-2022 20:57-0400 Body weight 106.59 kg No Primary Care Physician [facility] Work Phone: 07-02-2022 20:57-0400 Diastolic blood pressure 97 mm[Hg] No Primary Care Physician [facility] Work Phone: 07-02-2022 20:57-0400 SaO2% (BldA) [Mass fraction] 99 % No Primary Care Physician [facility] Work Phone: 07-02-2022 20:57-0400 Systolic blood pressure 140 mm[Hg] No Primary Care Physician [facility] Work Phone: 05-26-2022 01:37-0400 Body height 195.58 cm No Primary Care Physician [facility] Work Phone: 05-26-2022 01:37-0400 Body mass index (BMI) [Ratio] 27.7 kg/m2 No Primary Care Physician [facility] Work Phone: 05-26-2022 01:37-0400 Body temperature 97.1 [degF] No Primary Care Physician [facility] Work Phone: 05-26-2022 01:37-0400 Body weight 106.14 kg No Primary Care Physician [facility] Work Phone: 05-26-2022 01:37-0400 Diastolic blood pressure 82 mm[Hg] No Primary Care Physician [facility] Work Phone: 05-26-2022 01:37-0400 Heart rate 79 /min No Primary Care Physician [facility] Work Phone: 05-26-2022 01:37-0400 Respiratory rate 16 /min No Primary Care Physician [facility] Work Phone: 05-26-2022 01:37-0400 SaO2% (BldA) [Mass fraction] 98 % No Primary Care Physician [facility] Work Phone: 05-26-2022 01:37-0400 Systolic blood pressure 137 mm[Hg] No Primary Care Physician [facility] Work Phone: 04-26-2022 18:38-0400 Heart rate 76 /min No Primary Care Physician [facility] Work Phone: 04-26-2022 18:38-0400 Respiratory rate 17 /min No Primary Care Physician [facility] Work Phone: 04-26-2022 18:38-0400 SaO2% (BldA) [Mass fraction] 97 % No Primary Care Physician [facility] Work Phone: 04-26-2022 14:33-0400 Body temperature 98 [degF] No Primary Care Physician [facility] Work Phone: 04-26-2022 14:33-0400 Diastolic blood pressure 74 mm[Hg] No Primary Care Physician [facility] Work Phone: 04-26-2022 14:33-0400 Heart rate 71 /min No Primary Care Physician [facility] Work Phone: 04-26-2022 14:33-0400 Respiratory rate 18 /min No Primary Care Physician [facility] Work Phone: 04-26-2022 14:33-0400 SaO2% (BldA) [Mass fraction] 99 % No Primary Care Physician [facility] Work Phone: 04-26-2022 14:33-0400 Systolic blood pressure 117 mm[Hg] No Primary Care Physician [facility] Work Phone: 04-26-2022 14:06-0400 Body height 195.58 cm No Primary Care Physician [facility] Work Phone: 04-26-2022 14:06-0400 Body mass index (BMI) [Ratio] 28.9 kg/m2 No Primary Care Physician [facility] Work Phone: 04-26-2022 14:06-0400 Body weight 110.67 kg No Primary Care Physician [facility] Work Phone: 03-20-2022 14:23-0400 Body temperature 99 [degF] No Primary Care Physician [facility] Work Phone: 03-20-2022 14:19-0400 Diastolic blood pressure 97 mm[Hg] No Primary Care Physician [facility] Work Phone: 03-20-2022 14:19-0400 Heart rate 70 /min No Primary Care Physician [facility] Work Phone: 03-20-2022 14:19-0400 Respiratory rate 16 /min No Primary Care Physician [facility] Work Phone: 03-20-2022 14:19-0400 SaO2% (BldA) [Mass fraction] 97 % No Primary Care Physician [facility] Work Phone: 03-20-2022 14:19-0400 Systolic blood pressure 156 mm[Hg] No Primary Care Physician [facility] Work Phone: 03-20-2022 12:29-0400 Body height 195.58 cm No Primary Care Physician [facility] Work Phone: 03-20-2022 12:29-0400 Body weight 98.6 kg No Primary Care Physician [facility] Work Phone: 03-19-2022 23:34-0400 Body mass index (BMI) [Ratio] 25.7 kg/m2 No Primary Care Physician [facility] Work Phone: 03-19-2022 23:08-0400 Body temperature 98.1 [degF] No Primary Care Physician [facility] Work Phone: 03-19-2022 23:08-0400 Diastolic blood pressure 89 mm[Hg] No Primary Care Physician [facility] Work Phone: 03-19-2022 23:08-0400 Heart rate 98 /min No Primary Care Physician [facility] Work Phone: 03-19-2022 23:08-0400 Respiratory rate 14 /min No Primary Care Physician [facility] Work Phone: 03-19-2022 23:08-0400 SaO2% (BldA) [Mass fraction] 97 % No Primary Care Physician [facility] Work Phone: 03-19-2022 23:08-0400 Systolic blood pressure 126 mm[Hg] No Primary Care Physician [facility] Work Phone: 03-19-2022 17:31-0400 Body height 195.58 cm No Primary Care Physician [facility] Work Phone: 03-19-2022 17:31-0400 Body mass index (BMI) [Ratio] 27.7 kg/m2 No Primary Care Physician [facility] Work Phone: 03-19-2022 17:31-0400 Body weight 106.14 kg No Primary Care Physician [facility] Work Phone: 03-02-2022 18:53-0400 Body height 195.58 cm No Primary Care Physician [facility] Work Phone: 03-02-2022 18:53-0400 Body mass index (BMI) [Ratio] 27.7 kg/m2 No Primary Care Physician [facility] Work Phone: 03-02-2022 18:53-0400 Body temperature 97.2 [degF] No Primary Care Physician [facility] Work Phone: 03-02-2022 18:53-0400 Body weight 106.14 kg No Primary Care Physician [facility] Work Phone: 03-02-2022 18:53-0400 Diastolic blood pressure 96 mm[Hg] No Primary Care Physician [facility] Work Phone: 03-02-2022 18:53-0400 Heart rate 82 /min No Primary Care Physician [facility] Work Phone: 03-02-2022 18:53-0400 Respiratory rate 15 /min No Primary Care Physician [facility] Work Phone: 03-02-2022 18:53-0400 SaO2% (BldA) [Mass fraction] 98 % No Primary Care Physician [facility] Work Phone: 03-02-2022 18:53-0400 Systolic blood pressure 145 mm[Hg] No Primary Care Physician [facility] Work Phone: 01-31-2022 09:08-0400 Diastolic blood pressure 77 mm[Hg] No Primary Care Physician [facility] Work Phone: 01-31-2022 09:08-0400 Heart rate 62 /min No Primary Care Physician [facility] Work Phone: 01-31-2022 09:08-0400 Respiratory rate 15 /min No Primary Care Physician [facility] Work Phone: 01-31-2022 09:08-0400 SaO2% (BldA) [Mass fraction] 98 % No Primary Care Physician [facility] Work Phone: 01-31-2022 09:08-0400 Systolic blood pressure 124 mm[Hg] No Primary Care Physician [facility] Work Phone: 01-31-2022 08:10-0400 Body mass index (BMI) [Ratio] 28.9 kg/m2 No Primary Care Physician [facility] Work Phone: 01-31-2022 08:10-0400 Body temperature 97.8 [degF] No Primary Care Physician [facility] Work Phone: 01-31-2022 08:10-0400 Body weight 110.67 kg No Primary Care Physician [facility] Work Phone: 01-08-2022 11:14-0500 Diastolic blood pressure 91 mm[Hg] No Primary Care Physician [facility] Work Phone: 01-08-2022 11:14-0500 Heart rate 78 /min No Primary Care Physician [facility] Work Phone: 01-08-2022 11:14-0500 Respiratory rate 16 /min No Primary Care Physician [facility] Work Phone: 01-08-2022 11:14-0500 Systolic blood pressure 136 mm[Hg] No Primary Care Physician [facility] Work Phone: 01-08-2022 10:14-0500 Diastolic blood pressure 91 mm[Hg] No Primary Care Physician [facility] Work Phone: 01-08-2022 10:14-0500 Heart rate 78 /min No Primary Care Physician [facility] Work Phone: 01-08-2022 10:14-0500 Respiratory rate 16 /min No Primary Care Physician [facility] Work Phone: 01-08-2022 10:14-0500 Systolic blood pressure 136 mm[Hg] No Primary Care Physician [facility] Work Phone: 01-08-2022 07:05-0500 Body mass index (BMI) [Ratio] 25.9 kg/m2 No Primary Care Physician [facility] Work Phone: 01-08-2022 07:05-0500 Body temperature 98.6 [degF] No Primary Care Physician [facility] Work Phone: 01-08-2022 07:05-0500 Body weight 99.4 kg No Primary Care Physician [facility] Work Phone: 01-08-2022 07:05-0500 SaO2% (BldA) [Mass fraction] 97 % No Primary Care Physician [facility] Work Phone: 01-08-2022 06:05-0500 Body mass index (BMI) [Ratio] 25.9 kg/m2 No Primary Care Physician [facility] Work Phone: 01-08-2022 06:05-0500 Body temperature 98.6 [degF] No Primary Care Physician [facility] Work Phone: 01-08-2022 06:05-0500 Body weight 99.4 kg No Primary Care Physician [facility] Work Phone: 01-08-2022 06:05-0500 SaO2% (BldA) [Mass fraction] 97 % No Primary Care Physician [facility] Work Phone: 01-07-2022 08:31-0500 Body temperature 98 [degF] No Primary Care Physician [facility] Work Phone: 01-07-2022 08:31-0500 Diastolic blood pressure 82 mm[Hg] No Primary Care Physician [facility] Work Phone: 01-07-2022 08:31-0500 Heart rate 70 /min No Primary Care Physician [facility] Work Phone: 01-07-2022 08:31-0500 Respiratory rate 16 /min No Primary Care Physician [facility] Work Phone: 01-07-2022 08:31-0500 SaO2% (BldA) [Mass fraction] 95 % No Primary Care Physician [facility] Work Phone: 01-07-2022 08:31-0500 Systolic blood pressure 138 mm[Hg] No Primary Care Physician [facility] Work Phone: 01-07-2022 07:31-0500 Body temperature 98 [degF] No Primary Care Physician [facility] Work Phone: 01-07-2022 07:31-0500 Diastolic blood pressure 82 mm[Hg] No Primary Care Physician [facility] Work Phone: 01-07-2022 07:31-0500 Heart rate 70 /min No Primary Care Physician [facility] Work Phone: 01-07-2022 07:31-0500 Respiratory rate 16 /min No Primary Care Physician [facility] Work Phone: 01-07-2022 07:31-0500 SaO2% (BldA) [Mass fraction] 95 % No Primary Care Physician [facility] Work Phone: 01-07-2022 07:31-0500 Systolic blood pressure 138 mm[Hg] No Primary Care Physician [facility] Work Phone: 01-05-2022 10:48-0500 Body weight 97.25 kg No Primary Care Physician [facility] Work Phone: 01-05-2022 09:55-0500 Body mass index (BMI) [Ratio] 25.4 kg/m2 No Primary Care Physician [facility] Work Phone: 01-05-2022 09:48-0500 Body weight 97.25 kg No Primary Care Physician [facility] Work Phone: 01-05-2022 08:55-0500 Body mass index (BMI) [Ratio] 25.4 kg/m2 No Primary Care Physician [facility] Work Phone: 11-12-2021 20:28-0500 Diastolic blood pressure 81 mm[Hg] No Primary Care Physician [facility] Work Phone: 11-12-2021 20:28-0500 Heart rate 71 /min No Primary Care Physician [facility] Work Phone: 11-12-2021 20:28-0500 Systolic blood pressure 128 mm[Hg] No Primary Care Physician [facility] Work Phone: 11-12-2021 17:55-0500 Body temperature 97.3 [degF] No Primary Care Physician [facility] Work Phone: 11-12-2021 17:55-0500 Respiratory rate 15 /min No Primary Care Physician [facility] Work Phone: 11-12-2021 17:55-0500 SaO2% (BldA) [Mass fraction] 96 % No Primary Care Physician [facility] Work Phone: 11-12-2021 17:53-0500 Body mass index (BMI) [Ratio] 28.2 kg/m2 No Primary Care Physician [facility] Work Phone: 11-12-2021 17:53-0500 Body weight 107.95 kg No Primary Care Physician [facility] Work Phone: 11-09-2021 08:52-0500 Diastolic blood pressure 92 mm[Hg] No Primary Care Physician [facility] Work Phone: 11-09-2021 08:52-0500 Heart rate 74 /min No Primary Care Physician [facility] Work Phone: 11-09-2021 08:52-0500 SaO2% (BldA) [Mass fraction] 95 % No Primary Care Physician [facility] Work Phone: 11-09-2021 08:52-0500 Systolic blood pressure 138 mm[Hg] No Primary Care Physician [facility] Work Phone: 11-09-2021 06:25-0500 Body mass index (BMI) [Ratio] 27.8 kg/m2 No Primary Care Physician [facility] Work Phone: 11-09-2021 06:25-0500 Body temperature 96.9 [degF] No Primary Care Physician [facility] Work Phone: 11-09-2021 06:25-0500 Body weight 106.59 kg No Primary Care Physician [facility] Work Phone: 11-09-2021 06:25-0500 Respiratory rate 18 /min No Primary Care Physician [facility] Work Phone: 10-07-2019 07:48-0500 Body Temperature 96.1 [degF] [facility] [place] 10-07-2019 07:48-0500 BP Diastolic 90 mm[Hg] [facility] , [place] 10-07-2019 07:48-0500 BP Systolic 139 mm[Hg] Jocelyn Martinez [facility] , [place] 10-07-2019 07:48-0500 Pulse (Heart Rate) 72 /min Jocelyn Martinez [facility], [place] 10-07-2019 07:48-0500 Pulse Oximetry 95 % Jocelyn Martinez [facility] , [place] 10-07-2019 07:48-0500 Respiratory Rate 16 /min Jocelyn Martinez [facility], ELEANOR 10-07-2019 06:06-0500 BMI (Body Mass Index) 26.7 kg/m2 Jocelyn Martinez [facility], [place] 10-07-2019 06:06-0500 Body weight 102.15 kg Jocelyn Valentin [facility] , [place] 10-06-2019 12:03-0500 Height 195.6 cm Jocelyn Martinez [place], [place] Encounters Encounter Date Encounter Type Care Provider Facility Start: 03-26-2025 End: 03-26-2025 Emergency department patient visit Dr. Pedro Krishnan DO Work Phone: -Emergency Department Work Phone: Start: 02-16-2025 End: 02-16-2025 Dr. Linden Chavez DO Work Phone: -Emergency Department Work Phone: Start: 02-16-2025 End: 02-16-2025 Emergency department patient visit Dr. Linden Chavez DO Work Phone: [facility] Work Phone: Start: 12-26-2024 End: 12-27-2024 Dr. Panchito Yun -Emergency Departmen t Work Phone: Start: 12-26-2024 End: 12-27-2024 Emergency department patient visit Dr. Panchito Yun -Emergency Department Work Phone: Start: 12-20-2024 End: 12-20-2024 Dr. Avni Cash MD -Emergency Departmen t Work Phone: Start: 12-20-2024 End: 12-20-2024 Emergency department patient visit Dr. Avni Cash MD -Emergency Department Work Phone: Start: 12-14-2024 End: 12-14-2024 ambulatory Facility:[facility] Start: 12-14-2024 End: 12-14-2024 Patient encounter procedure Ion Alfaro [employer] Work Phone: [facility] Comment on above: Eustachian tube dysf unction, bilateral (Primary Dx) Start: 12-08-2024 End: 12-08-2024 Dr. Barry Mathew MD -Emergency Departmen t Work Phone: Start: 12-08-2024 End: 12-08-2024 Emergency department patient visit Dr. Barry Mathew MD -Emergency Department Work Phone: Start: 11-27-2024 End: 11-27-2024 Dr. Pedro Krishnan DO -Emergency Departmen t Work Phone: Start: 11-27-2024 End: 11-27-2024 Emergency department patient visit Dr. Pedro Krishnan DO -Emergency Department Work Phone: Start: 10-29-2024 End: 10-30-2024 Johann Lemons DO -Emergency Departmen t Work Phone: Start: 10-29-2024 End: 10-30-2024 Emergency department patient visit [facility] Facility:[facility] Start: 10-19-2024 End: 10-19-2024 Dr. Live Ashley MD -Emergency Departm ent Work Phone: Start: 10-19-2024 End: 10-19-2024 Emergency department patient visit Live Ashley Facility:[facility] Start: 08-10-2024 End: 08-10-2024 Emergency department patient visit [facility] Facility:[facility] Start: 05-27-2024 End: 05-28-2024 Emergency department patient visit [facility] Facility:[facility] Start: 05-18-2024 End: 05-18-2024 Emergency department patient visit [facility] Facility:[facility] Start: 05-10-2024 End: 05-10-2024 ambulatory Facility:[facility] Start: 05-10-2024 End: 05-10-2024 Patient encounter procedure Rosa Quinones BANKING SERVICES OFFICER.DEBIT AGENT Work Phone: [facility] Comment on above: Bilateral impacted c francie (Primary Dx) Start: 05-07-2024 End: 05-08-2024 Emergency department patient visit Linden Chavez Facility:[facility] Start: 03-09-2024 End: 03-09-2024 Emergency department patient visit [facility]-Emergency Department Work Phone: Start: 03-08-2024 End: 03-08-2024 Emergency department patient visit [facility]-Emergency Department Work Phone: Start: 02-07-2024 End: 02-08-2024 Emergency department patient visit [facility]-Emergency Department Work Phone: Start: 01-26-2024 End: 01-27-2024 Emergency department patient visit [facility]-Emergency Department Work Phone: Start: 01-05-2024 End: 01-05-2024 ambulatory [facility] Work Phone: Start: 01-05-2024 End: 01-05-2024 Patient encounter procedure [facility]-Mike Freed [facility] Start: 12-25-2023 End: 12-25-2023 Emergency department patient visit [facility]-Emergency Department Work Phone: Start: 12-18-2023 End: 12-18-2023 Emergency department patient visit [facility]-Emergency Department Work Phone: Start: 12-08-2023 End: 12-08-2023 Emergency department patient visit [facility]-Emergency Department Work Phone: Start: 11-22-2023 End: 11-22-2023 Emergency department patient visit [facility]-Emergency Department Work Phone: Start: 09-30-2023 End: 10-01-2023 Emergency department patient visit [facility]-Emergency Department Work Phone: Start: 09-29-2023 End: 09-29-2023 Emergency department patient visit [facility]-Emergency Department Work Phone: Start: 08-26-2023 End: 08-26-2023 Emergency department patient visit [facility]-Emergency Department Work Phone: Start: 08-18-2023 End: 08-18-2023 Office outpatient visit 15 minutes Jimmy Ramos APRN.DEBIT AGENT Work Phone: [facility] Comment on above: Bilateral impacted c francie (Primary Dx) Start: 07-29-2023 End: 07-29-2023 Emergency department patient visit [facility]-Emergency Department Work Phone: Start: 05-12-2023 End: 05-12-2023 Emergency department patient visit [facility]-Emergency Department Work Phone: Start: 03-07-2023 End: 03-07-2023 Emergency department patient visit [facility]-Emergency Department Start: 01-18-2023 End: 01-18-2023 Emergency department patient visit [facility]-Emergency Department Start: 12-15-2022 End: 12-15-2022 ambulatory [facility] Work Phone: Start: 12-15-2022 End: 12-15-2022 Patient encounter procedure [facility] Mike Andrea [facility] Start: 12-11-2022 End: 12-11-2022 Emergency department patient visit [facility]-Emergency Department Start: 12-10-2022 End: 12-10-2022 Emergency department patient visit [facility]-Emergency Department Start: 11-25-2022 End: 11-25-2022 Emergency department patient visit [facility]-Emergency Department Start: 10-29-2022 End: 10-30-2022 Emergency department patient visit [facility]-Emergency Department Start: 09-18-2022 End: 09-18-2022 Emergency department patient visit [facility]-Emergency Department Start: 08-07-2022 End: 08-07-2022 Emergency department patient visit [facility]-Emergency Department Start: 07-02-2022 End: 07-03-2022 Emergency department patient visit No Primary Care Physician [facility]-Emergency Department Start: 05-26-2022 End: 05-26-2022 Emergency department patient visit No Primary Care Physician [facility]-Emergency Department Start: 04-26-2022 End: 04-26-2022 Emergency department patient visit No Primary Care Physician [facility]-Emergency Department Start: 03-20-2022 Non-patient / Non-visit No Kiersten christina Care Physician [facility]patient [facility] Start: 03-19-2022 End: 03-20-2022 Evaluation and management of inpatient [facility] Start: 03-19-2022 Non-patient / Non-visit No Kiersten christina Care Physician [facility] Start: 03-02-2022 End: 03-02-2022 Emergency department patient visit No Primary Care Physician [facility]-Emergency Department Start: 01-31-2022 End: 01-31-2022 Emergency department patient visit No Primary Care Physician [facility]-Emergency Department Start: 01-08-2022 End: 01-08-2022 Emergency department patient visit No Primary Care Physician [facility]-Emergency Department Start: 01-07-2022 Non-patient / Non-visit No Kiersten christina Care Physician [facility] Start: 01-06-2022 Non-patient / Non-visit No Kiersten christina Care Physician [facility] Start: 01-06-2022 Non-patient / Non-visit No Kiersten christina Care Physician [facility]patient [facility] Start: 01-05-2022 Non-patient / Non-visit No Kiersten christina Care Physician [facility] Start: 01-05-2022 Non-patient / Non-visit No Kiersten christina Care Physician [facility]patient [facility] Start: 01-04-2022 Non-patient / Non-visit No Kiersten hcristina Care Physician [facility] Start: 01-04-2022 End: 01-07-2022 Evaluation and management of inpatient No [facility] Start: 11-12-2021 End: 11-12-2021 Emergency department patient visit No Primary Care Physician [facility]-Emergency Department Start: 11-09-2021 End: 11-09-2021 Emergency department patient visit No Primary Care Physician [facility]-Emergency Department Start: 10-05-2019 End: 10-07-2019 Evaluation and management of inpatient Jocelyn Valentin Work Phone: [id number] Oncology Procedures Date Procedure Procedure Detail Performing Clinician Start: 02-16-[address] Pedro Krishnan DO Work Phone: Start: 02-16-2025 Urnls dip stick/tabl et reagent auto microscopy Dr. Pedro Krishnan DO Work Phone: Start: 02-16-2025 X-ray of chest, PA a nd lateral views Dr. Linden Chavez DO Work Phone: Start: 02-16-[address] Pedro Krishnan DO Work Phone: Start: 12-27-[address] Linden Chavez DO Work Phone: Start: 12-27-2024 Urnls dip stick/tabl et reagent auto microscopy Dr. Pedro Krishnan DO Work Phone: Start: 12-20-2024 Computed tomography of abdomen and pelvis with intravenous contrast Dr. Linden Chavez DO Work Phone: Start: 12-20-2024 Urnls dip stick/tabl et reagent auto microscopy Dr. Pedro Krishnan DO Work Phone: Start: 12-20-2024 Measurement of renal function Dr. Pedro Krishnan DO Work Phone: Comment on above: GFR Calc Start: 12-08-2024 SARS-CoV-2, Influenz a & RSV (PCR) Dr. Pedro Krishnan DO Work Phone: Start: 12-08-2024 Dr. Linden kurtz DO Work Phone: Start: 12-08-2024 Urnls dip stick/tabl et reagent auto microscopy Dr. Pedro Krishnan DO Work Phone: Start: 12-08-[address] Pedro Krishnan DO Work Phone: Start: 12-08-2024 Measurement of renal function Dr. Pedro Krishnan DO Work Phone: Comment on above: GFR Calc Start: 11-27-2024 Urnls dip stick/tabl et reagent auto microscopy Dr. Pedro Krishnan DO Work Phone: Start: 11-27-2024 Measurement of renal function Dr. Pedro Krishnan DO Work Phone: Comment on above: GFR Calc Start: 10-30-2024 Dr. Linden kurtz DO Work Phone: Start: 10-29-2024 Plain chest X-ray Dr. Sunny Chavez DO Work Phone: Start: 10-19-2024 X-ray of chest, PA a nd lateral views Dr. Linden Chavez DO Work Phone: Start: 03-08-2024 Computed tomography of abdomen and pelvis with intravenous contrast Start: 03-08-2024 Diagnostic radiograp hy of abdomen Start: 01-27-2024 CT of head without contrast Start: 01-27-2024 Plain chest X-ray Start: 01-26-2024 SARS-CoV-2, Influenz a & RSV (PCR) Start: 12-18-2023 CT of lumbar spine Start: 11-22-2023 Plain chest X-ray Start: 10-01-2023 Measurement of occul t blood in stool specimen using immunoassay Start: 09-29-2023 Computed tomography of abdomen and pelvis with intravenous contrast Start: 08-26-2023 Plain X-ray of shoulder Start: 05-12-2023 Plain X-ray of femur Start: 01-18-2023 Clostridium difficil e detection Start: 01-18-2023 Lactoferrin measurement Start: 01-18-2023 Nucleic acid assay Start: 12-11-2022 Plain chest X-ray Start: 10-30-2022 CT of head without contrast Start: 08-07-2022 Computed tomography of abdomen and pelvis with intravenous contrast Start: 07-02-2022 CT of abdomen and pe lvis without contrast No Primary Care Physician Start: 04-26-2022 CT of abdomen and pe lvis without contrast No Primary Care Physician Start: 03-19-2022 Computed tomography of abdomen and pelvis with intravenous contrast No Primary Care Physician Start: 03-19-2022 Plain chest X-ray No Pr imary Care Physician Start: 03-19-2022 SARS-CoV-2 & FLU Ant igen (Rapid) No Primary Care Physician Start: 01-06-2022 Radionuclide gastric emptying study No Primary Care Physician Start: 01-04-2022 Computed tomography of abdomen and pelvis with intravenous contrast No Primary Care Physician Start: 01-04-2022 End: 01-04-2022 Ova OR parasites identification No Primary Care Physician Start: 11-09-2021 Plain chest X-ray No Pr imary Care Physician Start: 10-07-2019 Gluc bld gluc mntr d ev cleared fda spec home use Jocelyn Homero Work Phone: Start: 10-06-2019 Gluc bld gluc mntr d ev cleared fda spec home use Jocelyn Homero Work Phone: Start: 10-06-2019 Gluc bld gluc mntr d ev cleared fda spec home use Jocelyn Homero Work Phone: Start: 10-06-2019 Gluc bld gluc mntr d ev cleared fda spec home use Jocelynbobo Valentin Work Phone: Start: 10-06-2019 [facility] ENDOSCOPY REPORT 3m Scanning Start: 10-06-2019 Gluc bld gluc mntr d ev cleared fda spec home use Jocelynbobo Valentin Work Phone: Start: 10-06-2019 Gluc bld gluc mntr d ev cleared fda spec home use [employer] Work Phone: Start: 10-06-2019 Gluc bld gluc mntr d ev cleared fda spec home use [employer] Work Phone: Start: 10-06-2019 Assay of magnesium Umberto Myrick Work Phone: Start: 10-06-2019 BASIC METABOLIC PANE L W/ REFLEX TO MG FOR LOW K Zahira Myrick Work Phone: Start: 10-06-2019 Blood count complete auto&auto difrntl wbc Zahira Myrick Work Phone: Start: 10-05-2019 Gluc bld gluc mntr d ev cleared fda spec home use Jocelyn Valentin Work Phone: Start: 10-05-2019 Basic metabolic pane l calcium total Zahira Myrick Work Phone: Start: 10-05-2019 Blood count complete auto&auto difrntl wbc Zahira Myrick Work Phone: Start: 11-21-2013 [facility] BANKING SERVICES OFFICER.DEBIT AGENT Work Phone: Start: 06-22-2011 History of placement of stent for coronary artery disease S/P coronary artery stent placement Jimmylawrence Ramos BANKING SERVICES OFFICER.DEBIT AGENT Work Phone: Bacteria identified in Blood by Culture No Primary Care Physician Enteric Bacteriology Ova OR parasites identification No Primary Care Physician SARS-CoV-2 & FLU Ant igen (Rapid) No Primary Care Physician SARS-CoV-2 & FLU Ant igen (Rapid) SARS-CoV-2 & FLU Ant igen (Rapid) Urine culture No Primary Car e Physician Plan of Treatment Date Care Activity Detail Author Start: 05-03-2026 Urine microalbumin profile DTaP,Tdap,Td Vaccine (2 - Td or Tdap) [facility] Start: 12-14-2025 BP Controlled (<130/80) BP Controlled (<130/80) [facility] Start: 03-26-2025 [facility] Start: 02-16-2025 End: 02-16-2025 [facility] Start: 12-27-2024 [facility] Start: 12-20-2024 [facility] Start: 12-08-2024 [facility] Start: 11-27-2024 End: 11-27-2024 [facility] Start: 10-30-2024 [facility] Start: 10-19-2024 [facility] Start: 07-01-2024 Covid-19 Vaccine ( season) Covid-19 Vaccine () [facility] Start: 07-01-2024 Influenza vaccination Influenza Vaccine (#1) [facility] Start: 03-09-2024 [facility] Start: 03-08-2024 [facility] Start: 02-08-2024 [facility] Start: 01-27-2024 [facility] Start: 12-25-2023 End: 12-25-2023 [facility] Start: 12-18-2023 [facility] Start: 12-08-2023 [facility] Start: 11-22-2023 [facility] Start: 10-31-2023 Behavioral Health Screening Behavioral Health Screening [facility] Start: 10-01-2023 [facility] Start: 09-29-2023 [facility] Start: 09-29-2023 [facility] Start: 08-26-2023 [facility] Start: 07-01-2023 Covid-19 Vaccine ( season) Covid-19 Vaccine () [facility] Start: 07-01-2023 Influenza vaccination Influenza Vaccine (#1) [facility] Start: 01-18-2023 Enteric precautions [facility] Start: 10-31-2022 Depression Assessment Depression Assessment [facility] Start: 10-29-2022 [facility] Start: 08-07-2022 Iv infusion hydration initial 31 min-1 hour HYDRATION IV INFUSION INIT [facility] Start: 04-26-2022 Electrocardiographic procedure [facility] Work Phone: Start: 03-20-2022 Patient discharge [facility] Work Phone: Start: 03-20-2022 Referral to occupational therapist [facility] Work Phone: Start: 03-20-2022 Referral to service [facility] Work Phone: Start: 03-19-2022 Ambulation without limitation [facility] Work Phone: Start: 03-19-2022 Assessment of risk of venous thromboembolism [facility] Work Phone: Start: 03-19-2022 Insertion of catheter into peripheral vein [facility] Work Phone: Start: 03-19-2022 Oxygen therapy [facility] Work Phone: Start: 03-19-2022 Providing care according to standard [facility] Work Phone: Start: 03-19-2022 [facility] Work Phone: Start: 03-19-2022 Admission procedure [facility] Work Phone: Start: 03-19-2022 Following clinical pathway protocol [facility] Work Phone: Start: 03-19-2022 Bacteria identified in Blood by Culture Blood Culture [facility] Work Phone: Start: 03-19-2022 Bacteria identified in Urine by Culture Urine Culture [facility] Work Phone: Start: 03-19-2022 Urine culture Urine Culture [facility] Work Phone: Start: 03-19-2022 Patient referral to dietitian [facility] Work Phone: Start: 03-02-2022 Enteric precautions [facility] Work Phone: Start: 01-07-2022 Patient discharge [facility] Work Phone: Start: 01-06-2022 Care regimes management [facility] Work Phone: Start: 01-06-2022 Notification of physician [facility] Work Phone: Start: 01-06-2022 [facility] Work Phone: Start: 01-04-2022 Following clinical pathway protocol [facility] Work Phone: Start: 01-04-2022 Ambulation without limitation [facility] Work Phone: Start: 01-04-2022 Assessment of risk of venous thromboembolism [facility] Work Phone: Start: 01-04-2022 Insertion of catheter into peripheral vein [facility] Work Phone: Start: 01-04-2022 Oxygen therapy [facility] Work Phone: Start: 01-04-2022 Providing care according to standard [facility] Work Phone: Start: 01-04-2022 Referral to gastroenterology service [facility] Work Phone: Start: 01-04-2022 [facility] Work Phone: Start: 01-04-2022 Catheterization of vein [facility] Work Phone: Start: 01-04-2022 Admission procedure [facility] Work Phone: Start: 01-04-2022 Egd transoral biopsy single/multiple EGD BIOPSY SINGLE/MULTIPLE [facility] Work Phone: Start: 01-04-2022 Egd transoral control bleeding any method EGD CONTROL BLEEDING ANY [facility] Work Phone: Start: 01-04-2022 Enteric precautions [facility] Work Phone: Start: 01-04-2022 Patient referral to dietitian [facility] Work Phone: Start: 05-13-2021 Glaucoma screening Dilated Retinal Exam [facility] Start: 05-13-2021 Hepatitis C antibody, confirmatory test Dilated Retinal Exam [facility] Start: 11-08-2020 Annual PCP Team Chronic Disease Visit Annual PCP Team Chronic Disease Visit [facility] Start: 10-06-2020 Creatinine monitoring Creatinine monitoring [place], [place] Start: 10-06-2020 Potassium monitoring Potassium monitoring [place], [place] Start: 2020 Hepatitis B Vaccine (1 of 3 - Risk 3-dose series) Hepatitis B Vaccine (1 of 3 - Risk 3-dose series) [facility] Start: 2020 RSV Vaccine (1 - 1-dose 60+ series) RSV Vaccine (1 - 1-dose 60+ series) [facility] Start: 2020 RSV Vaccine (1 - Risk 60-74 years 1-dose series) RSV Vaccine (1 - Risk 60-74 years 1-dose series) [facility] Start: 02-17-2020 3 comp [facility] Start: 02-17-2020 Diabetic foot examination [facility] Start: 07-14-2019 Hepatitis B screening Urine Albumin:Creatinine Ratio [facility] Start: 07-14-2019 Hepatitis B surface antibody level LDL Cholesterol [facility] Start: 07-01-2019 Influenza vaccination Flu vaccine (#1) [place], [place] Start: 06-06-2019 Hemoglobin A1c measurement HbA1C [facility] Start: 06-06-2019 Hemoglobin A1c/Hemoglobin.total in Blood HbA1C [facility] Start: 11-21-2018 Colonoscopy Colonoscopy [facility] Start: 11-21-2018 Colorectal Cancer Screening Colorectal Cancer Screening [facility] Start: 11-21-2018 Screening for malignant neoplasm of colon [facility] Start: 2015 Prostate Cancer Screening Discussion Prostate Cancer Screening Discussion [facility] Start: 2015 Prostate specific antigen measurement Prostate Cancer Screening Discussion [facility] Start: 06-08-2014 Fecal Occult Blood Fecal Occult Blood [facility] Start: 06-08-2014 Screening for malignant neoplasm of colon Fecal Occult Blood [facility] Start: 07-22-2012 Pneumococcal vaccination [facility] Start: 07-22-2012 Pneumococcal Vaccine: 50+ (2 of 2 - PCV) Pneumococcal Vaccine: 50+ (2 of 2 - PCV) [facility] Start: 2010 Colon cancer screen colonoscopy Colon cancer screen colonoscopy [place], [place] Start: 2010 Shingles Vaccine (1 of 2) Shingles Vaccine (1 of 2) [place] Start: 2010 Shingrix Vaccine (1 of 2) Shingrix Vaccine (1 of 2) [facility] Start: 2005 Cologuard (FIT-DNA) Cologuard (FIT-DNA) [facility] Start: [address] Colonography [facility] Start: 2005 Screening for malignant neoplasm of colon [facility] Start: 2005 Sigmoidoscopy Sigmoidoscopy [facility] Start: 2000 Diabetes screen Diabetes screen [place], [place] Start: 1978 Annual PCP Team Chronic Disease Visit Annual PCP Team Chronic Disease Visit [facility] Start: 1978 Anxiety Screening Anxiety Screening [facility] Start: 1978 BP Controlled (<130/80) BP Controlled (<130/80) [facility] Start: 1978 Depression Screening Depression Screening [facility] Start: 1978 HIV Screening HIV Screening [facility] Start: 1978 HIV screening HIV Screening [facility] Start: 1975 HIV screen HIV screen [place], [place] Start: 1971 DTaP/Tdap/Td vaccine (1 - Tdap) DTaP/Tdap/Td vaccine (1 - Tdap) [place], [place] Start: 1970 Lipid screen Lipid screen [place], [place] Start: 1960 Hepatitis C screen Hepatitis C screen [place], [place] Acetone [Presence] i n Serum or Plasma [facility] Amphetamine [Mass/vo lume] in Urine [facility] Benzodiazepine measu rement, urine [facility] Bilirubin measurement, urine [facility] C. difficile DNA Amplification C. difficile DNA Amplification [facility] Clostridioides diffi cile DNA [Presence] in Unspecified specimen by IOANA with probe detection [facility] Cocaine measurement, urine [facility] Gastrointestinal pat hogens panel - Stool by IOANA with probe detection [facility] Hemoglobin [Presence ] in Urine [facility] Initiate Oxygen Ther apy Protocol Initiate Oxygen Therapy Protocol Respiratory Care Routine Daily until discontinued starting 10/05/2019 [place], [place] Comment on above: Daily until discontinued starting 2018 Measurement of 3,4-methylenedioxymethampheta mine in urine [facility] Measurement of keton es in urine using dipstick [facility] Methadone measurement, urine [facility] Microscopic urinalysis [facility] Ova and parasites id entified in Unspecified specimen by Light microscopy [facility] Patient Education [facility] Work Phone: Patient referral [facility] Work Phone: pH of Urine [facility] pH of Urine [facility] Phencyclidine [Prese nce] in Urine [facility] POCT Glucose [facility] [place] Comment on above: As Needed until discontinued starting 4X Daily (AC & HS) u ntil discontinued starting 10/06/2019 Removal impacted cer umen irrigation/lvg unilat AMBULATORY EAR LAVAGE/IRRIGATION Procedures Routine Bilateral impacted cerumen Ordered: 05/10/2024 [facility] Work Phone: Comment on above: Ordered: 05/10/2024 Specific gravity of Urine [facility] Urinalysis, blood, qualitative [facility] Urine barbiturate measurement [facility] Urine cannabinoid measurement [facility] Urine culture [facility] Urine dipstick for glucose [facility] Urine dipstick for l eukocyte esterase [facility] Urine dipstick for nitrite [facility] Urine dipstick for protein [facility] Urine examination [facility] Urine microscopy: ep ithelial cells [facility] Urine Microscopy: white cells [facility] Urine opiate measurement [facility] Urobilinogen [Presen ce] in Urine [facility] Immunizations Immunization Date Immunization Notes Care Provider Fa cility 11-07-2021 Covid (Pfizer) No Primary Ca re Physician [facility] 04-23-2021 Covid (Moderna) No Primary C are Physician [facility] 03-26-2021 Covid (Moderna) No Primary C are Physician [facility] 11-08-2019 influenza virus vacc ine, unspecified formulation Jimmy Ramos APRN.CNP Work Phone: [facility] 08-08-2012 tetanus and diphther ia toxoids, adsorbed, preservative free, for adult use (2 Lf of tetanus toxoid and 2 Lf of diphtheria toxoid) Jimmy Ramos APRN.CNP Work Phone: [facility] 07-22-2011 pneumococcal polysaccharide vaccine, 23 valent Jimmy Ramos APRN.CNP Work Phone: [facility] Payers Date Payer Category Payer Self-pay [id number] 2023 Private Health [facility] [id number] 2023 Unknown [id number] 2022 Medicaid [id number] 2013 Unknown [id number] 2013 Unknown [id number] Unknown [id number] Unknown [id number] Unknown [id number] Unknown [id number] 462 Unknown [id number] Unknown [id number] 462 Unknown [id number] 462 Unknown [id number] 462 Unknown [id number] 462 Unknown [id number] 462 Unknown [id number] 462 Unknown [id number] Social History Date Type Detail Facility Start: 10-06-2019 End: 03-26-2025 Tobacco smoking status NHIS Never smoker [facility] Start: 10-06-2019 Alcohol intake Ex-drinker (finding) [place], [place] Start: 10-06-2019 Alcohol Comment Last drinking 1992, Hx EtOH 10 years, never attended AA program [place], [place] Start: 1960 Sex Assigned At Not on file [place] Start: 03-02-2022 End: 03-09-2024 Tobacco smoking status ORIS Unknown if ever smoked [facility] Start: 05-16-2021 Rare [facility] Start: 11-25-2020 None [facility] Start: 11-24-2020 Alone [facility] Start: 05-16-2021 Non-smoker [facility] Start: 1960 Sex Assigned At Male [facility] Start: 08-18-2023 Tobacco use and exposure Former smokeless tobacco user [facility] End: 07-01-1978 History of tobacco use User of smokeless tobacco [facility] Start: 08-18-2023 End: 12-14-2024 Alcohol intake Current non-drinker of alcohol (finding) [facility] Start: 10-05-2020 End: 08-18-2023 History of Social function [facility] Start: 10-05-2020 End: 08-18-2023 Tobacco use panel [facility] Adult Depression Screening Assessment 5 [facility] Start: 08-18-2023 Tobacco Comment Quit when he s wallowed a wad of chew playing baseball! [facility] Start: 02-16-2025 Sex Male (finding) [facility] Medical Equipment Procedure Code Equipment Code Equipment Origin al Text Equipment Identifier Dates [id number], [id number] Start: 09-16-2017 Comment on above: Test blood sugar(s) 4 times daily. Dx: 250.02. InsulinDependent: Yes Use once daily with Lantus Goals Date Patient Goal Desired Activity /State Functional Status Date Assessment Result Facility 03-20-2022 Functional status Up ad hailee [facility] Work Phone: 01-07-2022 Functional status Ambulates [facility] Work Phone: 03-17-2015 Are you deaf, or do you have serious difficulty hearing No 03/17/2015 2:45 PM EDT Chantelle Jarrett Ma No [facility] 03-17-2015 Are you blind, or do you have serious difficulty seeing, even when wearing glasses No 03/17/2015 2:45 PM EDT Chantelle Jarrett Ma No [facility] 03-17-2015 Do you have serious difficulty walking or climbing stairs No 03/17/2015 2:45 PM EDT Chantelle Jarrett Ma No [facility] 03-17-2015 Do you have difficul ty dressing or bathing No 03/17/2015 2:45 PM EDT Chantelle Jarrett Ma No [facility] 03-17-2015 Because of a physica l, mental, or emotional condition, do you have difficulty doing errands alone such as visiting a physician's office or shopping No 03/17/2015 2:45 PM EDT Chantelle Jarrett Ma No [facility] Mental Status Date Assessment Result Facility 02-16-2025 Cognitive function Follows Commands;Drows y [facility] Work Phone: 12-08-2024 Cognitive function Awake;Alert;Appropriat e [facility] Work Phone: 10-30-2024 Cognitive function Awake;Alert;Appropriat e [facility] Work Phone: 10-19-2024 Cognitive function Awake;Alert;A ppropriate;Fol lows Commands [facility] Work Phone: 02-07-2024 Cognitive function Level Of Cons ciousness Awake;Alert;Appropriate;Fol lows Commands [facility] Work Phone: 01-26-2024 Cognitive function Level Of Cons ciousness Awake;Alert;Appropriate;Fol lows Commands [facility] Work Phone: 12-25-2023 Cognitive function Level Of Cons ciousness Awake;Alert;Appropriate;Fol lows Commands [facility] Work Phone: 12-08-2023 Cognitive function Level Of Cons ciousness Awake;Alert;Appropriate;Fol lows Commands [facility] Work Phone: 11-22-2023 Cognitive function Level Of Cons ciousness Awake;Alert;Follows Commands [facility] Work Phone: 07-29-2023 Cognitive function Level Of Cons ciousness Awake;Alert;Appropriate;Fol lows Commands [facility] Work Phone: 12-10-2022 Cognitive function Level Of Cons ciousness Awake;Alert;Appropriate;Fol lows Commands [facility] Work Phone: 10-30-2022 Cognitive function Level Of Cons ciousness Awake;Alert;Appropriate;Fol lows Commands;Drowsy [facility] Work Phone: 08-07-2022 Cognitive function Level Of Cons ciousness Awake;Alert;Appropriate;Fol lows Commands [facility] Work Phone: 03-20-2022 Cognitive function Level Of Cons ciousness Drowsy [facility] Work Phone: 03-19-2022 Cognitive function [facility] Work Phone: 03-19-2022 Cognitive function Level Of Cons ciousness Awake;Appropriate;Follows Commands [facility] Work Phone: 01-06-2022 Cognitive function Voice/Name [facility] Work Phone: 03-17-2015 Because of a physica l, mental, or emotional condition, do you have serious difficulty concentrating, remembering, or making decisions No 03/17/2015 2:45 PM EDT Chantelle Jarrett Ma [facility] Clinical Notes 10-13-2015 to 02-16-2025 Ion Alfaro APRN.DEBIT AGENT - 12/14/2024 9:32 AM Cristina Reyes - 05/10/2024 8:10 PM Cristina Colmenares - 05/10/2024 8:10 PM Rosa Mitchell APRN.DEBIT AGENT - 05/10/2024 7:47 PM EDT Note Date & Type Note Facility 02-16-2025 Radiology Diagnostic study note [facility] 12-14-2024 Note HNO ID: [id number] Author: ION ALFARO APRN.TAMY Service: ? Author Type: Nurse Practitioner Type: Progress Notes Filed: 12/14/2024 09:40 Note Text: This note was created using MySiteAppriter. Subjective Jerald Yoder is a 64 year [...] SPRAY,SUSPENSION - CETIRIZINE 10 MG TABLET Ion Alfaro APRN.CNP [facility] 12-14-2024 History of Present illness Narrative This note was created using MySiteAppriter. Subjective Jerald Yoder is a 64 year old male. HPI Pt complains of ear congestion for the last day. He is concerned that his ears are full of wax. Review of Systems Constitutional: Negative for fever. HENT: Positive for ear pain. Negative for sore throat. Respiratory: Negative for cough. Neurological: Negative for headaches. Objective BP 105/70 Pulse 77 Temp 36.2 C (97.1 F) Resp 18 Wt 98.7 kg (217 lb 9.5 oz) SpO2 97% BMI 27.02 kg/m Physical Exam Vitals and nursing note reviewed. [...] SPRAY,SUSPENSION - CETIRIZINE 10 MG TABLET Ion Alfaro APRN.DEBIT AGENT documented in this encounter [facility] 05-10-2024 Nurse Note Ambulatory Ear Lavage Pre-treatment: Warm water Treatment: Both ears Equipment and Irrigation solution and Volume used: Single use syringe with single use irrigation tip Return flow appearance: Brown Patient tolerated procedure: yes Tympanic membrane assessment: Tympanic membrane assessed by LIP pre-procedure Josef Lee APRN [facility] 05-10-2024 Nurse Note Ambulatory Ear Lavage Pre-treatment: Warm water Treatment: Both ears Equipment and Irrigation solution and Volume used: Single use syringe with single use irrigation tip Return flow appearance: Brown Patient tolerated procedure: yes Tympanic membrane assessment: Tympanic membrane assessed by LIP pre-procedure Josef Lee APRN documented in this encounter [facility] 05-10-2024 Note HNO ID: [id number] Author: ROSA QUINONES APRN.DEBIT AGENT Service: ? Author Type: Nurse Practitioner Type: Progress Notes Filed: 05/11/2024 08:47 Note Text: This note was created using MySiteAppriter. Subjective Jerald Yoder is a 64 year old male. 64 year old male with PMH CAD, HTN, CABG, GERD, DM, thyroid presents for ear complaints. Acute onset Endorses that yesterday he noticed reduced hearing Feelings of fullness. 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 Requesting ear irrigation. The history is provided by the patient. No languages and literature instructor was used. Ear Problem There is pain in both ears. This is a new problem. The current episode started yesterday. The problem occurs constantly. The problem has been unchanged. There has been no fever. The pain is at a severity of 0/10. The patient is experiencing no pain. Associated symptoms include hearing loss. Pertinent negatives include no abdominal pain, coughing, diarrhea, ear discharge, headaches, neck pain, rash, rhinorrhea, sore throat or vomiting. He has tried nothing for the symptoms. The treatment provided no relief. There is no history of a chronic ear infection, hearing loss or a tympanostomy tube. 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 For cholesterol lisinopril (ZESTRIL, PRINIVIL) 20 mg tablet Take 1 tablet by mouth once daily. empagliflozin (JARDIANCE) 10 mg tablet Take 1 tablet by mouth once daily. Take 1 tablet once daily in the morning levothyroxine (SYNTHROID) 175 mcg tablet Take 1 tablet by mouth once daily. Take on empty stomach. For Thyroid. aspirin, enteric coated (ASPIRIN, ENTERIC COATED) 81 mg EC tablet Take 1 tablet by mouth once daily. albuterol HFA (VENTOLIN HFA) 90 mcg/actuation inhaler Inhale 2 Puffs as instructed every 4 hours as needed. gabapentin (NEURONTIN) 300 mg capsule Take 1 capsule by mouth daily at bedtime for 30 days. insulin lispro (ADMELOG SOLOSTAR U-100 INSULIN) 100 [...] for 14 days. 1/2 hr before meal. FAMILY HISTORY Problem Relation Age of Onset Emphysema Father Heart Father Breast Cancer Sister other (Bone Mets) Sister Diabetes Paternal Grandfather Social History Tobacco Use Smoking status: Never Smokeless tobacco: Former Quit date: 07/01/1978 Tobacco comments: Quit when he swallowed a wad of chew playing baseball! Vaping Use Vaping Use: Never used Substance Use Topics Alcohol use: No Drug use: No Review of Systems Constitutional: Negative for activity change, diaphoresis, fatigue and fever. HENT: Positive for ear pain and hearing loss. Negative for ear discharge, rhinorrhea and sore throat. (more content not included)... [facility] 05-10-2024 History of Present illness Narrative This note was created using MySiteAppriter. Subjective Jerald Yoder is a 64 year old male. 64 year old male with PMH CAD, HTN, CABG, GERD, DM, thyroid presents for ear complaints. Acute onset Endorses that yesterday he noticed reduced hearing Feelings of fullness. 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 Requesting ear irrigation. The history is provided by the patient. No languages and literature instructor was used. Ear Problem There is pain in both ears. This is a new problem. The current episode started yesterday. The problem occurs constantly. The problem has been unchanged. There has been no fever. The pain is at a severity of 0/10. The patient is experiencing no pain. Associated symptoms include hearing loss. Pertinent negatives include no abdominal pain, coughing, diarrhea, ear discharge, headaches, neck pain, rash, rhinorrhea, sore throat or vomiting. He has tried nothing for the symptoms. The treatment provided no relief. There is no history of a chronic ear infection, hearing loss or a tympanostomy tube. 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 For cholesterol lisinopril (ZESTRIL, PRINIVIL) 20 mg tablet Take 1 tablet by mouth once daily. empagliflozin (JARDIANCE) 10 mg tablet Take 1 tablet by mouth once daily. Take 1 tablet once daily in the morning levothyroxine (SYNTHROID) 175 mcg tablet Take 1 tablet by mouth once daily. Take on empty stomach. For Thyroid. aspirin, enteric coated (ASPIRIN, ENTERIC COATED) 81 mg EC tablet Take 1 tablet by mouth once daily. albuterol HFA (VENTOLIN HFA) 90 mcg/actuation inhaler Inhale 2 Puffs as instructed every 4 hours as needed. gabapentin (NEURONTIN) 300 mg capsule Take 1 capsule by mouth daily at bedtime for 30 days. insulin lispro (ADMELOG SOLOSTAR U-100 INSULIN) 100 [...] for 14 days. 1/2 hr before meal. FAMILY HISTORY Problem Relation Age of Onset Emphysema Father Heart Father Breast Cancer Sister other (Bone Mets) Sister Diabetes Paternal Grandfather Social History Tobacco Use Smoking status: Never Smokeless tobacco: Former Quit date: 07/01/1978 Tobacco comments: Quit when he swallowed a wad of chew playing baseball! Vaping Use Vaping Use: Never used Substance Use Topics Alcohol use: No Drug use: No Review of Systems Constitutional: Negative for activity change, diaphoresis, fatigue and fever. HENT: Positive for ear pain and hearing loss. Negative for ear discharge, rhinorrhea and sore throat. Eyes: Negative for pain, discharge, redness and itching. Respiratory: Negative for cough. Gastrointestinal: Negative for abdominal pain, diarrhea and vomiting. Musculoskeletal: Negative for neck pain. Skin: Negative for rash. Allergic/Immunologic: Positive for environmental allergies and immunocompromised state. Negative for food allergies. Neurological: Negative for headaches. Hematological: Negative for adenopathy. Does not bruise/bleed easily. Psychiatric/Behavioral: Negative for agitation and behavioral problems. Objective BP 135/81 Pulse 72 Temp 36.4 C (97.5 F) Resp 20 Wt 101 kg (222 lb 10.6 oz) SpO2 96% BMI 27.65 kg/m Physical Exam Vitals and nursing note reviewed. Constitutional: General: He is not in acute distress. Appearance: Normal appearance. He is not ill-appearing, toxic-appearing or diaphoretic. Comments: Elderly appearing, non toxic HENT: Head: Normocephalic and atraumatic. Right Ear: External ear normal. Left Ear: External ear normal. Ears: Comments: Bilateral ears with impacted cerumen. Right greater than left. TM not visualized initially Nursing staff irrigates ears (see their note) Endorses hearing loss resolved. TM visualized and normal. Nose: Nose normal. No congestion or rhinorrhea. Mouth/Throat: Mouth: Mucous membranes are moist. Pharynx: Oropharynx is clear. No oropharyngeal exudate or posterior oropharyngeal erythema. Eyes: General: Right eye: No discharge. Left eye: No discharge. Extraocular Movements: Extraocular movements intact. Conjunctiva/sclera: Conjunctivae normal. Pupils: Pupils are equal, round, and reactive to light. Cardiovascular: Rate and Rhythm: Normal rate and regular rhythm. Pulses: Normal pulses. Heart sounds: Normal heart sounds. No murmur heard. No friction rub. No gallop. Pulmonary: Effort: Pulmonary effort is normal. No respiratory distress. Breath sounds: Normal breath sounds. No stridor. No wheezing, rhonchi or rales. Chest: Chest wall: No tenderness. Abdominal: General: Abdomen is flat. There is no distension. Palpations: Abdomen is soft. There is no mass. Tenderness: There is no abdominal tenderness. There is no guarding or rebound. Hernia: No hernia is present. Musculoskeletal: General: No swelling, tenderness, deformity or signs of injury. Normal range of motion. Cervical back: Normal range of motion and neck supple. No rigidity or tenderness. Right lower leg: No edema. Left lower leg: No edema. Lymphadenopathy: Cervical: No cervical adenopathy. Skin: General: Skin is warm and dry. Capillary Refill: Capillary refill takes less than 2 seconds. Coloration: Skin is not jaundiced or pale. Findings: No bruising, lesion or rash. Neurological: General: No focal deficit present. Mental Status: He is alert and oriented to person, place, and time. Cranial Nerves: No cranial nerve deficit. Sensory: No sensory deficit. Motor: No weakness. Coordination: Coordination normal. Gait: Gait normal. Deep Tendon Reflexes: Reflexes normal. Psychiatric: Mood and Affect: Mood normal. Behavior: Behavior normal. Thought Content: Thought content normal. Assessment and Plan ASSESSMENT/PLAN: 1. Bilateral impacted cerumen - ICD9: 380.4, ICD10: H61.23 Bilateral ears with impacted cerumen. Right greater than left. TM not visualized initially Nursing staff irrigates ears (see their note) Endorses hearing loss resolved. TM visualized and normal. - AMBULATORY EAR LAVAGE/IRRIGATION Rosa Quinones APRN.DEBIT AGENT documented in this encounter [facility] 02-07-2024 Discharge summary Note Date/Time February 07, 2024 9:10 pm [facility] Medical Records Department [address] [place] [id number] Emergency Department Summary 02/07/24 MR#: [id number] Acct: [id number] Name: JERALD YODER Rep #:[id number] : 1960 63 From: Keenan Wu DO PCP: Dr. Linden Chavez DO Status:REG ER Location: ED HPI History of Present Illness Chief Complaint: Weakness Narrative Narrative: 63-year-old male presenting with chief complaint of I feel like shit. He states I feel weak. States started a couple of hours ago. He reports that hewas concerned his blood sugar was high. Patient states that he feels thirsty. He states has been peeing a lot. Patient also reports that he has been drinkingsweet tea all afternoon. Patient denies to shortness of breath. He denies fever, chills. He denies nausea or vomiting. Denies diarrhea or constipation. 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 Restless legs Sleep apnea Home Medications metformin 500 mg tablet,extended release 24 hr 500 mg PO BID diabetes 05/02/19 [History Last Taken 03/18/22] fluconazole 200 mg tablet (Diflucan) 200 mg PO DAILY antibiotic 03/19/22 [History Last Taken 03/18/22] glipizide 5 mg tablet 5 mg PO BID diabetes 03/19/22 [History Last Taken 03/18/22] insulin glargine 100 unit/mL (3 mL) subcutaneous pen (Lantus Solostar U-100 Insulin) 10 unit subcut BID diabetes 03/19/22 [History Last Taken 03/18/22] ondansetron 4 mg disintegrating tablet 4 mg PO Q8H PRN nausea and vomiting #10 tabs 04/26/22 [Rx Last Taken Unknown] dicyclomine 20 mg tablet 20 mg PO TID PRN abdominal cramping #20 tabs 08/07/22 [Rx Last Taken Unknown] diphenoxylate-atropine 2.5 mg-0.025 mg tablet (Lomotil) 1 tab PO 4X/DAY PRN PRN diarrhea 5 days #20 tabs 10/30/22 [Rx Last Taken Unknown] cyclobenzaprine 10 mg tablet 10 mg PO TID PRN Muscle Spasm #20 TABLETS 08/26/23 [Rx Last Taken Unknown] hydrocortisone 1 % topical cream 1 applic topical TID PRN skin irritation #28.4 grams 08/26/23 [Rx Last Taken Unknown] ibuprofen 600 mg tablet 600 mg PO Q8H PRN PRN pain #20 TABLETS 08/26/23 [Rx Last Taken Unknown] ciprofloxacin HCl 500 mg tablet (Cipro) 500 mg PO BID #20 tabs 09/29/23 [Rx Last Taken Unknown] insulin glargine 100 unit/mL subcutaneous solution (Lantus U-100 Insulin) 1 unitsubcut QPM 09/29/23 [History Last Taken Unknown] levothyroxine 100 mcg tablet 100 mcg PO DAILY 09/29/23 [History Last Taken Unknown] metronidazole 500 mg tablet 500 mg PO BID 10 days #20 tabs 09/29/23 [Rx Last Taken Unknown] magnesium citrate (Citrate of Magnesia oral) 300 ml PO DAILY PRN constipation #296 mL 12/08/23 [Rx Last Taken Unknown] meclizine 25 mg tablet 25 mg PO TID #30 tabs 12/08/23 [Rx Last Taken Unknown] ondansetron 4 mg disintegrating tablet 4 mg PO Q8H PRN PRN Nausea #10 tabs 12/25/23 [Rx Last Taken Unknown] Allergy/AdvReac Type Severity Reaction Status Date / Time diphenhydramine HCl Allergy Rash Verified 02/07/24 19:15 [From Benadryl] Penicillins Allergy Rash Verified 02/07/24 19:15 venom-honey bee Allergy Swelling Verified 02/07/24 19:15 [bee venom (honey bee)] Surgical History History of coronary artery stent placement Hx of inguinal herniorrhaphy Hx of left knee surgery Social History household members: none Smoking Status: Never smoker substance use type: does not use ROS ROS ED ROS Narrative Generalized weakness Constitutional Constitutional ED: Denies chills, fever(s) or sweats Eyes Eyes: Denies blurry vision or change in vision ENT ENT ED: Denies ear pain or sore throat Cardiovascular Cardiovascular: Denies chest pain, palpitations or racing heartbeat Respiratory/Chest Respiratory/Chest: Denies cough, dyspnea or sputum Gastrointestinal Gastrointestinal: Denies abdominal pain, constipation, diarrhea, nausea or vomiting Genitourinary Genitourinary ED: Denies dysuria, hematuria or urinary frequency Musculoskeletal Musculoskeletal: Denies arthralgias, myalgias or neck pain Integumentary Denies abscess, Abrasions or rash Neurologic Neurologic: Denies headache(s), paresthesias or weakness Psychiatric Psychiatric: Denies anxiety, depression, suicidal ideation or suicidal thoughts Endocrine Endocrinology: Reports polydipsia and polyuria EXAM Physical Exam Const Vital Signs: 02/07/24 19:16 02/07/24 20:31 02/07/24 22:53 Temperature 96.4 F L Temperature Source Temporal Pulse Rate 77 79 Respiratory Rate 16 18 Respiratory Effort Normal Respiratory Pattern Normal Blood Pressure 110/79 148/94 H Blood Pressure Mean 89 112 Pulse Ox 93 92 Oxygen Delivery Method Room Air Positive well nourished General Appearance ED: NAD; Negative for pallor HEENT Reports moist mucous membranes Eyes PERRL and EOMs intact bilaterally Chest Wall inspection of chest normal Resp normal respiratory effort and clear to auscultation bilaterally Auscultation: Negative for rales, rhonchi or wheezes Cardio regular rate and regular rhythm GI normal to inspection, nondistended, normoactive bowel sounds Neuro oriented x3 and CN's II-XII intact bilaterally Sensorium / Orientation: alert Motor Exam: strength 5/5 throughout Psych mental status grossly normal Skin no rashes or lesions noted General Skin Exam: Negative for jaundice or pallor MDM MDM MDM Narrative Medical decision making narrative: 62-year-old male presenting with generalized weakness. He states he feels like his blood sugar is high and has been drinking sweet tea this afternoon. Blood sugar checked on arrival and is over 400. Patient's vital signs are stable and he is afebrile. Will check a BMP to assess renal function, glucose, anion gap. CBC to assess hemoglobin hematocrit. Patient will be given IV fluids. Will obtain a urinalysis, EtOH due to EtOH history and drug abuse screen. Patient's blood sugar came down to the 300s. It looks like the patient's blood sugar is always in the 300s to 400s. CBC and BMP unremarkable. Urinalysis negative for infection but shows 1000 glucose. EtOH negative. He was counseled to discontinue drinking sweet tea since he is a diabetic. I suspect he has been drinking this week he is since he has been here because it is in the room with him. I recommend he take his medications as prescribed. He is discharged stable condition. Impression: 1. Hyperglycemia 2. Medical noncompliance Lab Data Attestation: I reviewed the patient's lab results. Labs: Laboratory Results - last 24 hr 02/07/24 02/07/24 02/07/24 20:23 20:33 20:39 WBC 9.9 RBC 5.37 Hgb 15.4 Hct 44.1 MCV 82.1 MCH 28.7 MCHC 34.9 RDW Std Deviation 40.1 RDW Coeff of Manjinder 13.6 Plt Count 255 MPV 9.6 Immature Gran % (Auto) 0.400 Neut % (Auto) 73.2 H Lymph % (Auto) 17.4 L [place] % (Auto) 5.4 Eos % (Auto) 3.1 Baso % (Auto) 0.5 Absolute Neuts (auto) 7.2 Absolute Lymphs (auto) 1.71 Nucleated RBC % 0 Sodium 134 L Potassium 3.9 Chloride 98 Carbon Dioxide 30.0 Anion Gap 6 BUN 19 H Creatinine 1.09 Estim Creat Clear Calc 87.42 Est GFR (MDRD) Af Amer 88 Est GFR (MDRD) Non-Af 72 BUN/Creatinine Ratio 17.4 Glucose 461 H* Calcium 10.2 H Total Bilirubin 0.60 AST 12 L ALT 20 Alkaline Phosphatase 105 Total Protein 7.5 Albumin 3.9 Globulin 3.6 Albumin/Globulin Ratio 1.1 Urine Color Yellow Urine Clarity Clear Urine pH 6.0 Ur Specific [place] 1.015 Urine Protein 15 H Urine Glucose (UA) 1000 H Urine Ketones Negative Urine Occult Blood Negative Urine Nitrite Negative Urine Bilirubin Negative Urine Urobilinogen Normal Ur Leukocyte Esterase Negative Urine RBC 0 SEEN Urine WBC 0 SEEN Ur Squamous Epith Cells 0 SEEN Urine Bacteria 0 SEEN Urine Mucus 0 SEEN Ur Drug Screen Comment Ethyl Alcohol POC Glucose 437 H 02/07/24 02/07/24 21:20 23:51 WBC RBC Hgb Hct MCV MCH MCHC RDW Std Deviation RDW Coeff of Manjinder Plt Count MPV Immature Gran % (Auto) Neut % (Auto) Lymph % (Auto) [place] % (Auto) Eos % (Auto) Baso % (Auto) Absolute Neuts (auto) Absolute Lymphs (auto) Nucleated RBC % Sodium Potassium Chloride Carbon Dioxide Anion Gap BUN Creatinine Estim Creat Clear Calc Est GFR (MDRD) Af Amer Est GFR (MDRD) Non-Af BUN/Creatinine Ratio Glucose Calcium Total Bilirubin AST ALT Alkaline Phosphatase Total Protein Albumin Globulin Albumin/Globulin Ratio Urine Color Urine Clarity Urine pH Ur Specific [place] Urine Protein Urine Glucose (UA) Urine Ketones Urine Occult Blood Urine Nitrite Urine Bilirubin Urine Urobilinogen Ur Leukocyte Esterase Urine RBC Urine WBC Ur Squamous Epith Cells Urine Bacteria Urine Mucus Ur Drug Screen Comment Ethyl Alcohol < 3.0 POC Glucose 379 H Discharge Plan Triage Chief Complaint: Weakness ED Provider: Keenan Wu Dx/Rx/DC Orders Prescriptions: No Action metformin 500 MG tablet 500 mg PO BID Patient Comments: diabetes insulin glargine [Lantus Solostar U-100 Insulin] 100 unit/mL (3 mL) Insulin Pen 10 unit SUBCUT BID fluconazole [Diflucan] 200 mg tablet 200 mg PO DAILY glipizide 5 mg tablet 5 mg PO BID Rx Instructions: Hold if glucose less than 130 mg/dl ondansetron 4 mg tablet,disintegrating 4 mg PO Q8H PRN (Reason: nausea and vomiting) Qty: 10 0RF dicyclomine 20 mg tablet 20 mg PO TID PRN (Reason: abdominal cramping) Qty: 20 0RF diphenoxylate-atropine [Lomotil] 2.5-0.025 mg tablet 1 tab PO 4X/DAY PRN PRN (Reason: diarrhea) 5 Days Qty: 20 0RF meclizine 25 mg tablet 25 mg PO TID Qty: 30 0RF magnesium citrate [Citrate of Magnesia] Solution 300 ml PO DAILY PRN (Reason: constipation) Qty: 296 0RF Rx Instructions: Drink one half bottle if no bowel movement within 4 hours drink the second half of the bottle ibuprofen 600 mg tablet 600 mg PO Q8H PRN PRN (Reason: pain) Qty: 20 0RF cyclobenzaprine 10 mg tablet 10 mg PO TID PRN (Reason: Muscle Spasm) Qty: 20 0RF hydrocortisone 1 % cream 1 applic topical TID PRN (Reason: skin irritation) Qty: 28.4 0RF levothyroxine 100 mcg tablet 100 mcg PO DAILY Patient Comments: Take 1 tab by mouth once daily on an empty stomach insulin glargine [Lantus U-100 Insulin] 100 unit/mL solution 1 unit subcut QPM ciprofloxacin HCl [Cipro] 500 mg tablet 500 mg PO BID Qty: 20 0RF metronidazole 500 mg tablet 500 mg PO BID 10 Days Qty: 20 0RF ondansetron 4 mg tablet,disintegrating 4 mg PO Q8H PRN PRN (Reason: Nausea) Qty: 10 0RF Primary Care Provider: Linden Chavez Referrals: Linden Chavez DO [Primary Care Provider] - What to do if you have Problems For any increased pain, shortness of breath, bleeding, nausea or vomiting, chestpain, or any unexpected problems, contact your Primary Care Provider. Call [facility] ([phone]) or report to the closest Emergency Room. Call 911 if necessary. 02/08/2411 <Electronically signed by Keenan Wu DO> Cosigner Signature (if applicable): CC: Dr. Linden Chavez DO ~ Signed [facility] Work Phone: [phone]) 613-894001-23-2024 Discharge summary Author Barry Mathew [facility] November 22, 2023 5:13pm Note Date/Time November 22, 2023 3 :08pm [facility] Medical Records Department [address] [place] [address] Emergency Department Summary 11/22/23 MR#: [id number] Acct: [id number] Name: JERALD YODER Rep #:[id number] : 1960 63 From: Barry Mathew MD PCP: Dr. Linden Chavez, DO Status:REG ER Location: ED HPI History of Present Illness Chief Complaint: Weakness Narrative Narrative: 63-year-old male past medical history of hypertension, diabetes, presents with generalized weakness that started this morning when he woke up. He states yesterday everything was fine. States he feels generally weak, and tired as if he does not want to get out of bed. He denies any fevers or chills, no cough, no nausea or vomiting. He states he has chronic problems with diarrhea. He does not have any abdominal pain. He states that while he was at his [id number], he felt weak and fell, but did not hurt himself. He presents via EMS with generalized weakness. He states he has been eating and drinking well, to the point where he had 4 hotdogs prior to arrival. He denies any chestpain or shortness of breath. No exacerbating or alleviating factors. 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 Restless legs Sleep apnea Home Medications metformin 500 mg tablet,extended release 24 hr 500 mg PO BID diabetes 05/02/19 [History Last Taken 03/18/22] fluconazole 200 mg tablet (Diflucan) 200 mg PO DAILY antibiotic 03/19/22 [History Last Taken 03/18/22] glipizide 5 mg tablet 5 mg PO BID diabetes 03/19/22 [History Last Taken 03/18/22] insulin glargine 100 unit/mL (3 mL) subcutaneous pen (Lantus Solostar U-100 Insulin) 10 unit subcut BID diabetes 03/19/22 [History Last Taken 03/18/22] ondansetron 4 mg disintegrating tablet 4 mg PO Q8H PRN nausea and vomiting #10 tabs 04/26/22 [Rx Last Taken Unknown] dicyclomine 20 mg tablet 20 mg PO TID PRN abdominal cramping #20 tabs 08/07/22 [Rx Last Taken Unknown] diphenoxylate-atropine 2.5 mg-0.025 mg tablet (Lomotil) 1 tab PO 4X/DAY PRN PRN diarrhea 5 days #20 tabs 10/30/22 [Rx Last Taken Unknown] cyclobenzaprine 10 mg tablet 10 mg PO TID PRN Muscle Spasm #20 TABLETS 08/26/23 [Rx Last Taken Unknown] hydrocortisone 1 % topical cream 1 applic topical TID PRN skin irritation #28.4 grams 08/26/23 [Rx Last Taken Unknown] ibuprofen 600 mg tablet 600 mg PO Q8H PRN PRN pain #20 TABLETS 08/26/23 [Rx Last Taken Unknown] ciprofloxacin HCl 500 mg tablet (Cipro) 500 mg PO BID #20 tabs 09/29/23 [Rx Last Taken Unknown] insulin glargine 100 unit/mL subcutaneous solution (Lantus U-100 Insulin) 1 unitsubcut QPM 09/29/23 [History Last Taken Unknown] levothyroxine 100 mcg tablet 100 mcg PO DAILY 09/29/23 [History Last Taken Unknown] metronidazole 500 mg tablet 500 mg PO BID 10 days #20 tabs 09/29/23 [Rx Last Taken Unknown] Allergy/AdvReac Type Severity Reaction Status Date / Time diphenhydramine HCl Allergy Rash Verified 11/22/23 14:24 [From Benadryl] Penicillins Allergy Rash Verified 11/22/23 14:24 venom-honey bee Allergy Swelling Verified 11/22/23 14:24 [bee venom (honey bee)] Surgical History History of coronary artery stent placement Hx of inguinal herniorrhaphy Hx of left knee surgery Social History household members: none Smoking Status: Never smoker substance use type: does not use ROS ROS ED ROS Narrative Constitutional: No fever, no chills. Generalized weakness. Positive malaise and fatigue. HEENT: No sore throat. No neck pain. No loss of vision. No rhinorrhea. Cardiovascular: No chest pain. No palpitations. No pedal edema. Respiratory: No cough, no shortness of breath. Abdominal: No abdominal pain. No nausea. No vomiting. Genitourinary: No dysuria. No hematuria. Musculoskeletal: No myalgias. No arthralgias. Neurologic: No headaches. No dizziness. No lightheadedness. Skin: No rash. No change in color. Psychiatric: No depression. No anxiety. EXAM Physical Exam Narrative Exam Narrative: Afebrile. Vital signs noted. HEENT: Normocephalic. Atraumatic. PERRL, EOMI. Neck soft and supple. No pointtenderness or step off. Cardiovascular: Regular rate and rhythm. No murmurs, rubs, or gallops appreciated. Respiratory: No tachypnea. Lungs clear to auscultation bilaterally. Gastrointestinal: Abdomen soft, nontender, with normoactive bowel sounds. No rebound or guarding. Neurological: Awake. Alert. Oriented. Nonfocal, nonlateralizing. Skin: No rash. Normal color. No pallor. Musculoskeletal: No pedal edema. Full range of motion extremities. Const Vital Signs: 11/22/23 14:21 11/22/23 14:24 11/22/23 16:39 Temperature 97.6 F L Temperature Source Temporal Pulse Rate 72 76 Respiratory Rate 18 16 Respiratory Effort Normal Non-Labored Respiratory Pattern Normal Blood Pressure 130/81 H 138/89 H Blood Pressure Mean 97 105 Pulse Ox 96 97 Oxygen Delivery Method Room Air Room Air MDM MDM MDM Narrative Medical decision making narrative: In the differential diagnosis is dehydration versus intravascular volume depletion. He may have an occult urinary tract infection or pneumonia, but his vital signs appear normal, he is not tachycardic. Pulse ox 96% on room air. Comprehensive workup was pursued. I did review his prior labs and has had acutekidney injury in the past. He will be bolused normal saline 1 L intravenously. I do not feel he needs to be swabbed for COVID or influenza because he denies any upper respiratory infection type symptoms, or cough. EKG was obtained and interpreted by myself independently as normal sinus rhythm with PACs but no evidence of an acute STEMI. I reviewed his laboratory work andhe has normal white count of 7.4, hemoglobin normal at 15.7, hematocrit 45.6, platelet count normal at 220. Review of his electrolyte panel shows normal sodium of 137, potassium normal at 3.8, chloride 101. BUN is normal at 13 with creatinine of 0.94, no evidence of dehydration. Although glucose is elevated at357, his anion gap is low at 3. I have no concern for diabetic ketoacidosis. AST is slightly low at 9 which I think is nonspecific and ALT is 16. High-sensitivity troponin is 5. This is greater than a 6-hour troponin as he startedhaving symptoms of weakness earlier this morning. Urinalysis was obtained and reviewed. He has 0-5 white cells, I do not feel antibiotics are indicated. At this point in time, upon repeat examination he states he is feeling improved after 1 L fluid bolus. I do not feel that he requires observation. His [id number] is here. They are comfortable with discharge. Return instructions reviewed. Disposition is discharged home in stable condition. History & Record Review Discussion w/independent historian: Patient Additional record(s) reviewed:: Prior ED visit and Prior labs Lab Data Attestation: I reviewed the patient's lab results. Labs: Laboratory Results - last 24 hr 11/22/23 11/22/23 14:08 16:30 WBC 7.4 RBC 5.59 Hgb 15.7 Hct 45.6 MCV 81.6 MCH 28.1 MCHC 34.4 RDW Std Deviation 39.2 RDW Coeff of Manjinder 13.4 Plt Count 220 MPV 9.3 Immature Gran % (Auto) 0.300 Neut % (Auto) 70.9 H Lymph % (Auto) 18.9 L [place] % (Auto) 5.0 Eos % (Auto) 4.5 Baso % (Auto) 0.4 Absolute Neuts (auto) 5.3 Absolute Lymphs (auto) 1.40 Nucleated RBC % 0 Sodium 137 Potassium 3.8 Chloride 101 Carbon Dioxide 33.0 H Anion Gap 3 L BUN 13 Creatinine 0.94 Estim Creat Clear Calc 101.37 Est GFR (MDRD) Af Amer 105 Est GFR (MDRD) Non-Af 86 BUN/Creatinine Ratio 13.9 Glucose 357 H Calcium 10.2 H Total Bilirubin 0.80 AST 9 L ALT 16 Alkaline Phosphatase 100 Troponin I High Sens 5 Total Protein 7.6 Albumin 3.7 Globulin 3.9 Albumin/Globulin Ratio 0.9 Urine Color Yellow Urine Clarity Sl. Cloudy Urine pH 5.0 Ur Specific [place] 1.020 Urine Protein 15 H Urine Glucose (UA) 1000 H Urine Ketones Negative Urine Occult Blood Negative Urine Nitrite Negative Urine Bilirubin Negative Urine Urobilinogen 1 H Ur Leukocyte Esterase 25 H Urine RBC 0 SEEN Urine WBC 0-5 SEEN Ur Squamous Epith Cells 0-5 SEEN Urine Bacteria RARE Urine Mucus RARE Urine Yeast RARE Radiography Diagnostic Testing: Clinical Impression(s) from Imaging Studies Chest X-Ray 11/22/23 15:04 IMPRESSION: Stable examination. Electronically Signed: Brent Gray MD at 15:48 EST , Discharge Plan Triage Chief Complaint: Weakness ED Provider: Barry Mathew Dx/Rx/DC Orders Prescriptions: No Action metformin 500 MG tablet 500 mg PO BID Patient Comments: diabetes insulin glargine [Lantus Solostar U-100 Insulin] 100 unit/mL (3 mL) Insulin Pen 10 unit SUBCUT BID fluconazole [Diflucan] 200 mg tablet 200 mg PO DAILY glipizide 5 mg tablet 5 mg PO BID Rx Instructions: Hold if glucose less than 130 mg/dl ondansetron 4 mg tablet,disintegrating 4 mg PO Q8H PRN (Reason: nausea and vomiting) Qty: 10 0RF dicyclomine 20 mg tablet 20 mg PO TID PRN (Reason: abdominal cramping) Qty: 20 0RF diphenoxylate-atropine [Lomotil] 2.5-0.025 mg tablet 1 tab PO 4X/DAY PRN PRN (Reason: diarrhea) 5 Days Qty: 20 0RF ibuprofen 600 mg tablet 600 mg PO Q8H PRN PRN (Reason: pain) Qty: 20 0RF cyclobenzaprine 10 mg tablet 10 mg PO TID PRN (Reason: Muscle Spasm) Qty: 20 0RF hydrocortisone 1 % cream 1 applic topical TID PRN (Reason: skin irritation) Qty: 28.4 0RF levothyroxine 100 mcg tablet 100 mcg PO DAILY Patient Comments: Take 1 tab by mouth once daily on an empty stomach insulin glargine [Lantus U-100 Insulin] 100 unit/mL solution 1 unit subcut QPM ciprofloxacin HCl [Cipro] 500 mg tablet 500 mg PO BID Qty: 20 0RF metronidazole 500 mg tablet 500 mg PO BID 10 Days Qty: 20 0RF Primary Care Provider: Linden Chavez Referrals: Linden Chavez, [Primary Care Provider] - What to do if you have Problems For any increased pain, shortness of breath, bleeding, nausea or vomiting, chestpain, or any unexpected problems, contact your Primary Care Provider. Call [facility] ([phone]) or report to the closest Emergency Room. Call 911 if necessary. 11/22/231712 <Electronically signed by Barry Mathew MD> Cosigner Signature (if applicable): CC: Dr. Linden Chavez, ~ Signed [facility] Work Phone: [phone]) 981-432011-30-2023 Discharge summary [facility] September 29, 2023 11:33pm Note Date/Time September 29, 2023 9:05pm [facility] Medical Records Department [address] [place] [address] Emergency Department Summary 09/29/23 MR#: [id number] Acct: [id number] Name: JERALD YODER Rep #:[id number] : 1960 63 From: Barry Mathew MD PCP: Dr. Linden Chavez DO Status:REG ER Location: ED HPI History of Present Illness Chief Complaint: Nausea/Vomiting/Diarrhea Narrative Narrative: 63-year-old male past medical history of hypertension, presents with nausea and diarrhea that he has had for the last 5 hours. He states he ate at the [employer] and had a salad with 6 ranch dressings, but states he has had it before and never gets sick from it. However, he feels nauseated as if he were going to vomit. While he has not vomited, he ended up having diarrhea, few episodes prior to arrival. These were nonbloody. Does not really have abdominal pain, but he states that he feels sick, and generally weak. He stateshe has past medical history of diabetes and takes insulin at night. He feels feverish at times. His main concern is his diarrhea and nausea. No chest pain or shortness of breath. 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 Restless legs Sleep apnea Home Medications metformin 500 mg tablet,extended release 24 hr 500 mg PO BID diabetes 05/02/19 [History Last Taken 03/18/22] fluconazole 200 mg tablet (Diflucan) 200 mg PO DAILY antibiotic 03/19/22 [History Last Taken 03/18/22] glipizide 5 mg tablet 5 mg PO BID diabetes 03/19/22 [History Last Taken 03/18/22] insulin glargine 100 unit/mL (3 mL) subcutaneous pen (Lantus Solostar U-100 Insulin) 10 unit subcut BID diabetes 03/19/22 [History Last Taken 03/18/22] ondansetron 4 mg disintegrating tablet 4 mg PO Q8H PRN nausea and vomiting #10 tabs 04/26/22 [Rx Last Taken Unknown] dicyclomine 20 mg tablet 20 mg PO TID PRN abdominal cramping #20 tabs 08/07/22 [Rx Last Taken Unknown] diphenoxylate-atropine 2.5 mg-0.025 mg tablet (Lomotil) 1 tab PO 4X/DAY PRN PRN diarrhea 5 days #20 tabs 10/30/22 [Rx Last Taken Unknown] cyclobenzaprine 10 mg tablet 10 mg PO TID PRN Muscle Spasm #20 TABLETS 08/26/23 [Rx Last Taken Unknown] hydrocortisone 1 % topical cream 1 applic topical TID PRN skin irritation #28.4 grams 08/26/23 [Rx Last Taken Unknown] ibuprofen 600 mg tablet 600 mg PO Q8H PRN PRN pain #20 TABLETS 08/26/23 [Rx Last Taken Unknown] ciprofloxacin HCl 500 mg tablet (Cipro) 500 mg PO BID #20 tabs 09/29/23 [Rx Last Taken Unknown] insulin glargine 100 unit/mL subcutaneous solution (Lantus U-100 Insulin) 1 unitsubcut QPM 09/29/23 [History Last Taken Unknown] levothyroxine 100 mcg tablet 100 mcg PO DAILY 09/29/23 [History Last Taken Unknown] metronidazole 500 mg tablet 500 mg PO BID 10 days #20 tabs 09/29/23 [Rx Last Taken Unknown] Allergy/AdvReac Type Severity Reaction Status Date / Time diphenhydramine HCl Allergy Rash Verified 09/29/23 19:23 [From Benadryl] Penicillins Allergy Rash Verified 09/29/23 19:23 venom-honey bee Allergy Swelling Verified 09/29/23 19:23 [bee venom (honey bee)] Surgical History History of coronary artery stent placement Hx of inguinal herniorrhaphy Hx of left knee surgery Social History household members: none Smoking Status: Never smoker substance use type: does not use ROS ROS ED ROS Narrative Constitutional: Subjective fever, no chills. Generalized weakness HEENT: No sore throat. No neck pain. No loss of vision. No rhinorrhea. Cardiovascular: No chest pain. No palpitations. No pedal edema. Respiratory: No cough, no shortness of breath. Abdominal: No abdominal pain. Positive nausea. No vomiting. Few episodes of diarrhea prior to arrival. Genitourinary: No dysuria. No hematuria. Musculoskeletal: No myalgias. No arthralgias. Neurologic: No headaches. No dizziness. No lightheadedness. Skin: No rash. No change in color. Psychiatric: No depression. No anxiety. EXAM Physical Exam Narrative Exam Narrative: Afebrile. Vital signs noted. HEENT: Normocephalic. Atraumatic. PERRL, EOMI. Neck soft and supple. No pointtenderness or step off. Cardiovascular: Regular rate and rhythm. No murmurs, rubs, or gallops appreciated. Respiratory: No tachypnea. Lungs clear to auscultation bilaterally. Gastrointestinal: Abdomen soft, nontender, with normoactive bowel sounds. No rebound or guarding. Neurological: Awake. Alert. Nonfocal, nonlateralizing. Skin: No rash. Normal color. No pallor. Musculoskeletal: No pedal edema. Full range of motion extremities. Const Vital Signs: 09/29/23 19:23 09/29/23 20:43 Temperature 97.6 F L Temperature Source Temporal Pulse Rate 82 Respiratory Rate 18 Blood Pressure 81/57 L 108/58 L Blood Pressure Mean 65 74 Pulse Ox 96 Oxygen Delivery Method Room Air MDM MDM MDM Narrative Medical decision making narrative: In the differential diagnosis is diverticulitis versus gastroenteritis. Initially, he was hypotensive in triage, but I am unsure if this is an accurate reading. He will be bolused normal saline and given ondansetron. He is requesting a p.o. challenge. As he is diabetic, I do feel that laboratory work is indicated to help rule out any ketoacidosis or hyperosmolarity. Has had pancreatitis in the past. I do feel CT imaging is indicated as well of his abdomen and pelvis with IV contrast. He was also administered ondansetron for his nausea. I reviewed his laboratory work and he has normal white count of 10.9, hemoglobinnormal at 14.0, hematocrit 41.1, platelet count normal at 226. Electrolyte panel is grossly unremarkable with a sodium normal at 137, potassium 3.9, chloride 105, BUN normal at 17 with creatinine 1.03, glucose is appropriately elevated at 213 with an anion gap low at 4. I have no concern for diabetic ketoacidosis. Lipase is normal at 13. I reviewed the radiology report of the CT of the abdomen and pelvis which shows colitis affecting the distal sigmoid colon and rectum. He was given his first doses of Cipro and Flagyl. He states he no longer drinks alcohol. I wrote him a prescription for Cipro floxacillin and for metronidazole for the next 10 days. He is to follow-up with his primarycare provider. I do not feel he requires observation or admission at this time for colitis as he does not have a fever or elevated white count. He has not haddiarrhea here in the emergency department. Return instructions to the emergencydepartment were reviewed. Disposition is discharged home in stable condition. History & Record Review Discussion w/independent historian: Patient Additional record(s) reviewed:: Prior ED visit and Prior labs Lab Data Attestation: I reviewed the patient's lab results. Labs: Laboratory Results - last 24 hr 09/29/23 21:45 WBC 10.9 RBC 4.98 Hgb 14.0 Hct 41.1 MCV 82.5 MCH 28.1 MCHC 34.1 RDW Std Deviation 39.8 RDW Coeff of Manjinder 13.4 Plt Count 226 MPV 9.2 Immature Gran % (Auto) 0.500 Neut % (Auto) 78.5 H Lymph % (Auto) 13.5 L [place] % (Auto) 5.2 Eos % (Auto) 1.7 Baso % (Auto) 0.6 Absolute Neuts (auto) 8.5 H Absolute Lymphs (auto) 1.47 Nucleated RBC % 0 Sodium 137 Potassium 3.9 Chloride 105 Carbon Dioxide 28.0 Anion Gap 4 L BUN 17 Creatinine 1.03 Estim Creat Clear Calc 92.51 Est GFR (MDRD) Af Amer 94 Est GFR (MDRD) Non-Af 77 BUN/Creatinine Ratio 16.5 Glucose 213 H Calcium 8.7 Total Bilirubin 0.40 AST 9 L ALT 14 L Alkaline Phosphatase 100 Total Protein 7.2 Albumin 3.5 Globulin 3.7 Albumin/Globulin Ratio 0.9 Lipase 13 Radiography Diagnostic Testing: Clinical Impression(s) from Imaging Studies Abdomen/Pelvis CT 09/29/23 21:00 IMPRESSION: Findings of a mild/moderate colitis affecting the distal sigmoid colon and rectum. No abscess or free air. Electronically Signed: Aung Oglesby MD at 22:26 EST , Discharge Plan Triage Chief Complaint: Nausea/Vomiting/Diarrhea ED Provider: Barry Mathew Dx/Rx/DC Orders Clinical Impression: Colitis, Diarrhea Instructions: ED Understanding Colitis Prescriptions: New ciprofloxacin HCl [Cipro] 500 mg tablet 500 mg PO BID Qty: 20 0RF metronidazole 500 mg tablet 500 mg PO BID 10 Days Qty: 20 0RF No Action metformin 500 MG tablet 500 mg PO BID Patient Comments: diabetes insulin glargine [Lantus Solostar U-100 Insulin] 100 unit/mL (3 mL) Insulin Pen 10 unit SUBCUT BID fluconazole [Diflucan] 200 mg tablet 200 mg PO DAILY glipizide 5 mg tablet 5 mg PO BID Rx Instructions: Hold if glucose less than 130 mg/dl ondansetron 4 mg tablet,disintegrating 4 mg PO Q8H PRN (Reason: nausea and vomiting) Qty: 10 0RF dicyclomine 20 mg tablet 20 mg PO TID PRN (Reason: abdominal cramping) Qty: 20 0RF diphenoxylate-atropine [Lomotil] 2.5-0.025 mg tablet 1 tab PO 4X/DAY PRN PRN (Reason: diarrhea) 5 Days Qty: 20 0RF ibuprofen 600 mg tablet 600 mg PO Q8H PRN PRN (Reason: pain) Qty: 20 0RF cyclobenzaprine 10 mg tablet 10 mg PO TID PRN (Reason: Muscle Spasm) Qty: 20 0RF hydrocortisone 1 % cream 1 applic topical TID PRN (Reason: skin irritation) Qty: 28.4 0RF levothyroxine 100 mcg tablet 100 mcg PO DAILY Patient Comments: Take 1 tab by mouth once daily on an empty stomach insulin glargine [Lantus U-100 Insulin] 100 unit/mL solution 1 unit subcut QPM Primary Care Provider: Linden Chavez Referrals: iLnden Chavez DO [Primary Care Provider] - 3-5 Days What to do if you have Problems For any increased pain, shortness of breath, bleeding, nausea or vomiting, chestpain, or any unexpected problems, contact your Primary Care Provider. Call [facility] ([phone]) or report to the closest Emergency Room. Call 911 if necessary. 09/29/232332 <Electronically signed by Barry Mathew MD> Cosigner Signature (if applicable): CC: Dr. Linden Chavez DO ~ Signed [facility] Work Phone: [phone]) 258-141310-19-2023 History of Present illness Narrative* Jimmy Ramos, SANDRA.DEBIT AGENT - 08/18/2023 4:12 PM EDT Subjective HPI Nontoxic-appearing male presents urgent care complaint cerumen impaction. Duration of symptoms 3 weeks. Associated symptoms decreased hearing. History of cerumen impaction this feels similar. Has notused any OTC medications. No ear trauma loss [...] Colon polyp 2013 adenomatous Coronary artery disease [place] in 1994 Diabetic neuropathy (HCC) DM (diabetes [...] 2 Puffs as instructed every 4 hours asneeded. insulin lispro (ADMELOG SOLOSTAR U-100 INSULIN) 100 unit/mL inpn Inject 13 Units subcutaneously three times daily before meals. naproxen (NAPROSYN) 500 mg tablet Take 1 tablet by mouth twice daily with meals. insulin glargine (LANTUS U-100 INSULIN) 100 unit/mL injection Inject 82 Units subcutaneously daily before breakfast. flash glucose scanning reader (Evisors[employer]YLE CLAUDIA 14 DAY READER) misc 1 Device [...] mouth daily before breakfast for 14 days. 1/2hr before meal. atorvastatin (LIPITOR) 40 mg tablet [...] therapies. Patient will follow up with primary careprovider as needed. Patient was instructed to immediately [...] of care. This note was generated using [employer] software. It may contain errors in wording, punctuation, or spelling. Jimmy Ramos APRN.DEBIT AGENT documented [facility] Wu [facility] December 11, 2022 9:32pm Note Date/Time December 11, 2022 4:55pm [facility] Medical Records Department [address] [place] [address] Emergency Department Summary 12/11/22 MR#: [id number] Acct: [id number] Name: JERALD YODER Rep #:[id number] : 1960 62 From: Keenan Wu DO PCP: Dr. Iván Hassan MD Status:REG E R Location: ED HPI History of Present Illness Chief Complaint: Weakness Narrative Narrative: 62-year-old male presenting with weakness. Patient is accompanied by his brother who is in the room reading a newspaper. Initially neither one of them would speak to me. The patient was just sitting there holding his head in his hands. Eventually, the patient states he does not he does not feel well. he states that his whole upper body hurts which includes his chest, arms, head, neck. He states this started about 3 hours ago. He and his brother were wandering downtown because he wanted to go for a ride. Patient had 2 egg rolls prior to the symptom onset. He does not have any nausea or vomiting. Patient'sbrother eventually states that he has not had health care in many years. He does not take his blood pressure medicine or diabetic medicine. He is supposed to see Dr. Hassan but has not made an appointment. [facility] Medical History Back pain due to injury Chronic pain COPD (chronic obstructive pulmonary disease) Current use of insulin Depression Diabetes Esophageal candidiasis High cholesterol History of stress test Hyperlipidemia Hypertension Injury of head and neck Myocardial infarct Non-smoker Restless legs Sleep apnea Home Medications metformin 500 mg tablet,extended release 24 hr 500 mg PO BID diabetes 05/02/19 [History Last Taken 03/18/22] fluconazole 200 mg tablet (Diflucan) 200 mg PO DAILY antibiotic 03/19/22 [History Last Taken 03/18/22] glipizide 5 mg tablet 5 mg PO BID diabetes 03/19/22 [History Last Taken 03/18/22] insulin glargine 100 unit/mL (3 mL) subcutaneous pen (Lantus Solostar U-100 Insulin) 10 unit subcut BID diabetes 03/19/22 [History Last Taken 03/18/22] ondansetron 4 mg disintegrating tablet 4 mg PO Q8H PRN nausea and vomiting #10 tabs 04/26/22 [Rx Last Taken Unknown] permethrin 5 % topical cream (Elimite) 1 applic topical Q14D 2 doses #60 grams 05/26/22 [Rx Last Taken Unknown] prednisone 10 mg tablet 10 mg PO DAILY #30 tabs 05/26/22 [Rx Last Taken Unknown] tramadol 50 mg tablet 50 mg PO Q4H PRN PRN Pain 2 days #12 tabs 07/03/22 [Rx Last Taken Unknown] dicyclomine 20 mg tablet 20 mg PO TID PRN abdominal cramping #20 tabs 08/07/22 [Rx Last Taken Unknown] ondansetron 4 mg disintegrating tablet 4 mg PO Q8H PRN nausea and vomiting #10 tabs 09/18/22 [Rx Last Taken Unknown] diphenoxylate-atropine 2.5 mg-0.025 mg tablet (Lomotil) 1 tab PO 4X/DAY PRN PRN diarrhea 5 days #20 tabs 10/30/22 [Rx Last Taken Unknown] glipizide 5 mg tablet 5 mg PO DAILY #60 tabs 12/11/22 [Rx Last Taken Unknown] insulin glargine 100 unit/mL subcutaneous solution (Lantus U-100 Insulin) 10 unit (0.1 mL) subcut QPM #10 mL 12/11/22 [Rx Last Taken Unknown] metformin 500 mg tablet 500 mg PO DAILY #60 tabs 12/11/22 [Rx Last Taken Unknown] Allergy/AdvReac Type Severity Reaction Status Date / Time diphenhydramine HCl Allergy Rash Verified 12/11/22 16:13 [From Benadryl] Penicillins Allergy Rash Verified 12/11/22 16:13 venom-honey bee Allergy Swelling Verified 12/11/22 16:13 [bee venom (honey bee)] Surgical History History of coronary artery stent placement Social History household members: none Smoking Status: Never smoker substance use type: does not use ROS ROS ED Review of Systems ROS Unobtainable: Denies due to encephalopathy or due to endotracheal tube Constitutional Constitutional ED: Denies chills or fever(s) Eyes Eyes: Denies change in vision or diplopia ENT ENT ED: Denies ear pain or rhinorrhea Cardiovascular Cardiovascular: Denies chest pain Respiratory/Chest Respiratory/Chest: Denies cough or dyspnea Gastrointestinal Gastrointestinal: Denies abdominal pain Genitourinary Genitourinary ED: Denies dysuria Musculoskeletal Musculoskeletal: Reports neck pain; Denies arthralgias Integumentary Denies abscess or Abrasions Neurologic Neurologic: Reports headache(s); Denies paresthesias Psychiatric Psychiatric: Denies anxiety or depression EXAM Physical Exam Const Vital Signs: 12/11/22 16:13 12/11/22 17:15 12/11/22 19:00 Temperature 96.5 F L Temperature Source Temporal Pulse Rate 75 75 Respiratory Rate 18 16 16 Blood Pressure 78/51 L 114/77 Blood Pressure Mean 60 89 Pulse Ox 96 95 Oxygen Delivery Method Room Air Room Air 12/11/22 18:15 12/11/22 19:20 Temperature Temperature Source Pulse Rate 72 77 Respiratory Rate 16 16 Blood Pressure 142/95 H 154/93 H Blood Pressure Mean 110 113 Pulse Ox 95 96 Oxygen Delivery Method Room Air Room Air Positive well nourished General Appearance ED: NAD; Negative for pallor HEENT Reports moist mucous membranes Negative for trauma or tenderness Chest Wall inspection of chest normal Resp normal respiratory effort and clear to auscultation bilaterally Auscultation: Negative for rales, rhonchi or wheezes Cardio regular rate and regular rhythm GI normal to inspection, nondistended, normoactive bowel sounds Back/Spine no CVA tenderness Neuro oriented x3 and CN's II-XII intact bilaterally Sensorium / Orientation: alert Skin no rashes or lesions noted General Skin Exam: Negative for jaundice or pallor MDM MDM MDM Narrative Medical decision making narrative: Patient seen and evaluated for generally feeling unwell. He does complain of pain everywhere above the sternum including his chest, arms, neck, head. He is not a very good informant. I did review the medical record and saw that he was here yesterday and had blood work. When I asked the patient what was different from his presentation yesterday he stated everything is just worse. He cannotelaborate any further. His initial blood pressure was 78/51, when I went into the room he was 110/90. Since he has pain in the chest area I will obtain an EKG, troponin. Patient was given a liter of normal saline. Blood pressure continues to improve. His blood pressure 154/93. CBC shows no leukocytosis. Hemoglobin hematocrit are stable. Platelets are normal. CMP shows normal LFTs. Renal function and electrolytes are normal with exception of a glucose of 337. No anion gap. No DKA. EtOH normal. Drug abuse screen negative. Urinalysis also normal. EKG was obtained and on my interpretation this is a normal sinus rhythm with ventricular rate of 70 bpm without sign of ischemic change. Chest x-ray on my interpretation shows no acute cardiopulmonary process. Radiologist services and agrees. I found no reason as to why the patient feels weak except for may be a high blood sugar. His blood sugar on recheck after liter of fluidsis down to 245. Patient was discussed with Dr. Chavez. He is on-call for who is now retired. Patient Dr. Chavez recommended restarting the patient's home diabetic medication.. He also recommended having him follow-up with him in the office. He is to call to make an appointment. Patient counseled on this. He is counseled to make follow-up so that he will have refills. He acknowledged understanding. Impression: 1. Medical noncompliance 2. Hyperglycemia 3. Generalized weakness Lab Data Attestation: I reviewed the patient's lab results. Labs: Laboratory Results - last 24 hr 12/11/22 12/11/22 12/11/22 17:00 17:00 17:00 WBC 6.8 RBC 5.09 Hgb 14.4 Hct 41.9 MCV 82.3 MCH 28.3 MCHC 34.4 RDW Std Deviation 38.8 RDW Coeff of Manjinder 13.2 Plt Count 202 MPV 9.5 Immature Gran % (Auto) 0.400 Neut % (Auto) 67.1 Lymph % (Auto) 22.4 [place] % (Auto) 6.1 Eos % (Auto) 3.4 Baso % (Auto) 0.6 Absolute Neuts (auto) 4.6 Absolute Lymphs (auto) 1.53 Nucleated RBC % 0 Sodium 139 Potassium 3.4 L Chloride 104 Carbon Dioxide 28.0 Anion Gap 7 BUN 8 Creatinine 0.93 Estim Creat Clear Calc 103.79 Est GFR (MDRD) Af Amer 105 Est GFR (MDRD) Non-Af 87 BUN/Creatinine Ratio 8.6 L Glucose 337 H Calcium 8.6 Total Bilirubin 0.60 AST 5 L ALT 12 L Alkaline Phosphatase 72 Troponin I High Sens 6 Total Protein 6.7 Albumin 3.5 Globulin 3.2 Albumin/Globulin Ratio 1.1 Urine Color Urine Clarity Urine pH Ur Specific [place] Urine Protein Urine Glucose (UA) Urine Ketones Urine Occult Blood Urine Nitrite Urine Bilirubin Urine Urobilinogen Ur Leukocyte Esterase Urine RBC Urine WBC Ur Squamous Epith Cells Urine Bacteria Urine Mucus Urine Opiates Screen Urine Methadone Screen Ur Barbiturates Screen Ur Phencyclidine Scrn Ur Amphetamines Screen MDMA (Ecstasy) Screen U Benzodiazepines Scrn Urine Cocaine Screen U Cannabinoids Screen Ur Drug Screen Comment Ethyl Alcohol < 3.0 POC Glucose 12/11/22 12/11/22 12/11/22 18:40 18:40 19:25 WBC RBC Hgb Hct MCV MCH MCHC RDW Std Deviation RDW Coeff of Manjinder Plt Count MPV Immature Gran % (Auto) Neut % (Auto) Lymph % (Auto) [place] % (Auto) Eos % (Auto) Baso % (Auto) Absolute Neuts (auto) Absolute Lymphs (auto) Nucleated RBC % Sodium Potassium Chloride Carbon Dioxide Anion Gap BUN Creatinine Estim Creat Clear Calc Est GFR (MDRD) Af Amer Est GFR (MDRD) Non-Af BUN/Creatinine Ratio Glucose Calcium Total Bilirubin AST ALT Alkaline Phosphatase Troponin I High Sens Total Protein Albumin Globulin Albumin/Globulin Ratio Urine Color Yellow Urine Clarity Clear Urine pH 6.0 Ur Specific [place] 1.015 Urine Protein 15 H Urine Glucose (UA) 1000 H Urine Ketones 5 H Urine Occult Blood Negative Urine Nitrite Negative Urine Bilirubin Negative Urine Urobilinogen Normal Ur Leukocyte Esterase Negative Urine RBC 0 SEEN Urine WBC 0 SEEN Ur Squamous Epith Cells 0 SEEN Urine Bacteria 0 SEEN Urine Mucus RARE Urine Opiates Screen NEGATIVE Urine Methadone Screen NEGATIVE Ur Barbiturates Screen NEGATIVE Ur Phencyclidine Scrn NEGATIVE Ur Amphetamines Screen NEGATIVE MDMA (Ecstasy) Screen NEGATIVE U Benzodiazepines Scrn NEGATIVE Urine Cocaine Screen NEGATIVE U Cannabinoids Screen NEGATIVE Ur Drug Screen Comment Ethyl Alcohol POC Glucose 272 H Radiography Diagnostic Testing: Clinical Impression(s) from Imaging Studies Chest X-Ray 12/11/22 17:16 IMPRESSION: No acute abnormality or major interval change. Electronically Signed: Misael Trimble DO at 17:32 EST Reading Location ID and State: [address] [place] [address] Tel [phone], Service support , Discharge Plan Triage Chief Complaint: Weakness Other Complaint: Nausea/Vomiting ED Provider: Keenan Wu Dx/Rx/DC Orders Clinical Impression: Diabetes mellitus with hyperglycemia, Weakness, Non-compliance Instructions: ED Diabetic Hyperglycemia Prescriptions: New glipizide 5 mg tablet 5 mg PO DAILY Qty: 60 0RF metformin 500 mg tablet 500 mg PO DAILY Qty: 60 0RF insulin glargine [Lantus U-100 Insulin] 100 unit/mL solution 10 unit subcut QPM Qty: 10 0RF No Action metformin 500 MG tablet 500 mg PO BID Label Comments: diabetes insulin glargine [Lantus Solostar U-100 Insulin] 100 unit/mL (3 mL) Insulin Pen 10 unit SUBCUT BID fluconazole [Diflucan] 200 mg tablet 200 mg PO DAILY glipizide 5 mg tablet 5 mg PO BID Rx Instructions: Hold if glucose less than 130 mg/dl ondansetron 4 mg tablet,disintegrating 4 mg PO Q8H PRN (Reason: nausea and vomiting) Qty: 10 0RF permethrin [Elimite] 5 % cream 1 applic topical Q14D Qty: 60 0RF Rx Instructions: apply second treatment 14 days after first treatment if live lice remain prednisone 10 mg tablet 10 mg PO DAILY Qty: 30 0RF Rx Instructions: 4 pills by mouth days 1 through 3 3 pills by mouth days 4 through 6 2 pills by mouth days 7 through 9 1 pill by mouth days 10 through 12 tramadol 50 mg tablet 50 mg PO Q4H PRN PRN (Reason: Pain) 2 Days Qty: 12 0RF dicyclomine 20 mg tablet 20 mg PO TID PRN (Reason: abdominal cramping) Qty: 20 0RF ondansetron 4 mg tablet,disintegrating 4 mg PO Q8H PRN (Reason: nausea and vomiting) Qty: 10 0RF diphenoxylate-atropine [Lomotil] 2.5-0.025 mg tablet 1 tab PO 4X/DAY PRN PRN (Reason: diarrhea) 5 Days Qty: 20 0RF Primary Care Provider: Iván Hassan Referrals: Linden Chavez DO [Med Staff - Ux Manager] - As soon as possible Disposition Disposition: Home, Self Care What to do if you have Problems For any increased pain, shortness of breath, bleeding, nausea or vomiting, chestpain, or any unexpected problems, contact your Primary Care Provider. Call [facility] ([phone]) or report to the closest Emergency Room. Call 911 if necessary. 12/11/222131 <Electronically signed by Keenan Wu DO> Cosigner Signature (if applicable): CC: Dr. Iván Hassan MD ~ Signed [facility] Work Phone: [phone]) 867-930801-26-[address] Calle [facility] November 25, 2022 3:03pm Note Date/Time November 25, 2022 1 :30pm [facility] Medical Records Department [address] [place] [address] Emergency Department Summary 11/25/22 MR#: [id number] Acct: [id number] Name: JERALD YODER Rep #:[id number] : 1960 62 From: Ar Calle MD PCP: Care Physician,No Primary Status :REG ER Location: ED HPI History of Present Illness Chief Complaint: Nausea/Vomiting/Diarrhea Detail of Chief Complaint: Nausea, vomiting diarrhea Informant: patient Onset/Context/Timing Onset: Today (0800) Context: Sudden Onset Timing: Intermittent Quality: Nausea, vomiting and diarrhea with mild cramping abdominal pain Location: Generalized Current Severity: Mild Maximum Severity: Moderate Worsened by: Vomiting and diarrhea Relieved by: Nothing Associated Symptoms Associated Symptoms: Thirst, dry mouth, lightheadedness Narrative Narrative: Patient is 62-year-old male with history of type 2 diabetes who presents with nausea, vomiting diarrhea that started this morning. He denies ill contacts. He denies fever, chills night sweats. He denies ocular, visual auditory symptoms. He denies upper respiratory infectious symptoms. He denies chest pain, dyspnea, [place] exertion, orthopnea PND. He does endorse crampy diffuse abdominal pain with vomiting diarrhea. He denieshematemesis or coffee grounds in emesis. He states it was green. He has had 6 watery loose stools. He did not note blood or mucus. Water is brown in color. Prior similar symptoms: Yes Recent Illness/Hospitalization: No PFSH PFSH Medical History Back pain due to injury Chronic pain COPD (chronic obstructive pulmonary disease) Current use of insulin Depression Diabetes Esophageal candidiasis High cholesterol History of stress test Hyperlipidemia Hypertension Injury of head and neck Myocardial infarct Non-smoker Restless legs Sleep apnea Home Medications metformin 500 mg tablet,extended release 24 hr 500 mg PO BID diabetes 05/02/19 [History Last Taken 03/18/22] fluconazole 200 mg tablet (Diflucan) 200 mg PO DAILY antibiotic 03/19/22 [History Last Taken 03/18/22] glipizide 5 mg tablet 5 mg PO BID diabetes 03/19/22 [History Last Taken 03/18/22] insulin glargine 100 unit/mL (3 mL) subcutaneous pen (Lantus Solostar U-100 Insulin) 10 unit subcut BID diabetes 03/19/22 [History Last Taken 03/18/22] ondansetron 4 mg disintegrating tablet 4 mg PO Q8H PRN nausea and vomiting #10 tabs 04/26/22 [Rx Last Taken Unknown] permethrin 5 % topical cream (Elimite) 1 applic topical Q14D 2 doses #60 grams 05/26/22 [Rx Last Taken Unknown] prednisone 10 mg tablet 10 mg PO DAILY #30 tabs 05/26/22 [Rx Last Taken Unknown] tramadol 50 mg tablet 50 mg PO Q4H PRN PRN Pain 2 days #12 tabs 07/03/22 [Rx Last Taken Unknown] dicyclomine 20 mg tablet 20 mg PO TID PRN abdominal cramping #20 tabs 08/07/22 [Rx Last Taken Unknown] ondansetron 4 mg disintegrating tablet 4 mg PO Q8H PRN nausea and vomiting #10 tabs 09/18/22 [Rx Last Taken Unknown] diphenoxylate-atropine 2.5 mg-0.025 mg tablet (Lomotil) 1 tab PO 4X/DAY PRN PRN diarrhea 5 days #20 tabs 10/30/22 [Rx Last Taken Unknown] Allergy/AdvReac Type Severity Reaction Status Date / Time diphenhydramine HCl Allergy Rash Verified 11/25/22 13:09 [From Benadryl] Penicillins Allergy Rash Verified 11/25/22 13:09 venom-honey bee Allergy Swelling Verified 11/25/22 13:09 [bee venom (honey bee)] Surgical History History of coronary artery stent placement Social History household members: none Smoking Status: Never smoker substance use type: does not use ROS ROS ED Constitutional Constitutional ED: Denies chills, fever(s), subjective or sweats Eyes Eyes: Denies blurry vision, change in vision or diplopia ENT ENT ED: Denies ear pain, rhinorrhea or sore throat Cardiovascular Cardiovascular: Denies chest pain, orthopnea or palpitations Respiratory/Chest Respiratory/Chest: Denies cough, dyspnea, dyspnea on exertion or orthopnea Gastrointestinal Gastrointestinal: Reports abdominal pain, diarrhea, nausea and vomiting; Denies constipation or melena Genitourinary Genitourinary ED: Denies dysuria, hematuria or urinary frequency Musculoskeletal Musculoskeletal: Denies arthralgias, back pain, myalgias or neck pain Integumentary Denies abscess, Abrasions or rash Neurologic Neurologic: Reports weakness; Denies paresthesias Psychiatric Psychiatric: Denies anxiety or depression Hematologic/Lymphatic Hematologic/Lymphatic: Denies easy bleeding or easy bruising EXAM Physical Exam Const Vital Signs: 11/25/22 13:07 Temperature 97.6 F L Temperature Source Temporal Pulse Rate 76 Respiratory Rate 16 Blood Pressure 137/88 H Blood Pressure Mean 104 Pulse Ox 98 Oxygen Delivery Method Room Air Positive well nourished, well developed and unkempt Constitutional Narrative: Patient appears ill. General Appearance ED: unkempt, well developed and pallor; Negative for cyanoticor diaphoretic HEENT Reports dry mucous membranes HEENT Narrative: Head is atraumatic normocephalic. Ears normal. Nares patent. Uvula midline. No deviation with protrusion. Mouth ED: Yes dry mucous membranes Mouth: dry mucous membranes Eyes PERRL and EOMs intact bilaterally General Eye ED: Negative for pale conjunctiva or scleral icterus Neck no lymphadenopathy, supple and no JVD Chest Wall inspection of chest normal and palpation of chest normal Resp clear to auscultation bilaterally Cardio regular rate, regular rhythm, S1 normal heart sound, S2 normal heart sound and no murmurs GI Negative for hepatosplenomegaly GI Narrative: Minimal bilateral tenderness. There is no guarding. Inspection: Negative for abdominal distention Auscultation: hypoactive bowel sounds Palpation: soft; Negative for guarding, splenomegaly, mass or rebound tendernesspresent Back/Spine no CVA tenderness Cervical Spine: Negative for cervical spine tenderness Thoracic Spine / Upper Back: Negative for thoracic spinal tenderness Extremity Extremity Narrative: Stigmata of peripheral arterial disease Neuro oriented x3 and CN's II-XII intact bilaterally Psych Appearance: unkempt Skin no rashes or lesions noted, no wounds and No skin turgor normal General Skin Exam: pallor; Negative for elasticity normal or jaundice MDM MDM MDM Narrative Medical decision making narrative: Patient was admitted for similar presentation in December 2021. The plan was as follows: PLAN: ? ? ? #Acute diarrhea * hydrate with iVF * CT abdomen showed distension of the stomach and first and second portion of the duodenum down to the junction with the third portion with suspicion for duodenal diverticulum * Keep on only clear liquids for now. * Consult GI as ED spoke to Dr. Obregon and his? plan is to scope patient tomorrow. * stool samples sent to lab for culture and other workup * plac Patient has a benign abdomen. There is no indication for CT. Will treat with IV fluids since clinically is dehydrated. Because he is diabetic BG T was obtained assess glucose. Basic metabolic panel was obtained to assess for hypokalemia, renal function as well as CO2 anion gap since he is diabetic. Patient was treated with Zofran for his nausea and Bentyl for his cramping pain. Lab Data Attestation: I reviewed the patient's lab results. Lab results narrative: Glucose is elevated 429 with a normal CO2 and anion gap. There is no evidence for DKA. Electrolytes are unremarkable including potassium. We will treat patient's hyperglycemia with insulin. Suspect his blood sugar is elevated due to to the fact that he has an infection and per old records he is not compliant with diet Labs: Laboratory Results - last 24 hr 11/25/22 11/25/22 13:50 14:27 Sodium 136 Potassium 4.0 Chloride 102 Carbon Dioxide 28.0 Anion Gap 6 BUN 11 Creatinine 0.97 Estim Creat Clear Calc 99.51 Est GFR (MDRD) Af Amer 101 Est GFR (MDRD) Non-Af 83 BUN/Creatinine Ratio 11.3 Glucose 429 H Calcium 9.0 POC Glucose 380 H Treatment and Re-Evaluation Narrative: Patient tolerated p.o. fluids. He does have type 2 diabetes but does require insulin. Will stress importance of taking his meds, compliance with diet and follow-up with his primary care physician. Discharge Plan Triage Chief Complaint: Nausea/Vomiting/Diarrhea ED Provider: LucAr Dx/Rx/DC Orders Clinical Impression: Abdominal pain, vomiting, and diarrhea, Essential hypertension, History of ETOHabuse, Hyperglycemia due to type 2 diabetes mellitus, Acute dehydration, Historyof coronary artery disease Instructions: ED Gastroenteritis, Viral (Adult) Prescriptions: No Action metformin 500 MG tablet 500 mg PO BID Label Comments: diabetes insulin glargine [Lantus Solostar U-100 Insulin] 100 unit/mL (3 mL) Insulin Pen 10 unit SUBCUT BID fluconazole [Diflucan] 200 mg tablet 200 mg PO DAILY glipizide 5 mg tablet 5 mg PO BID Rx Instructions: Hold if glucose less than 130 mg/dl ondansetron 4 mg tablet,disintegrating 4 mg PO Q8H PRN (Reason: nausea and vomiting) Qty: 10 0RF permethrin [Elimite] 5 % cream 1 applic topical Q14D Qty: 60 0RF Rx Instructions: apply second treatment 14 days after first treatment if live lice remain prednisone 10 mg tablet 10 mg PO DAILY Qty: 30 0RF Rx Instructions: 4 pills by mouth days 1 through 3 3 pills by mouth days 4 through 6 2 pills by mouth days 7 through 9 1 pill by mouth days 10 through 12 tramadol 50 mg tablet 50 mg PO Q4H PRN PRN (Reason: Pain) 2 Days Qty: 12 0RF dicyclomine 20 mg tablet 20 mg PO TID PRN (Reason: abdominal cramping) Qty: 20 0RF ondansetron 4 mg tablet,disintegrating 4 mg PO Q8H PRN (Reason: nausea and vomiting) Qty: 10 0RF diphenoxylate-atropine [Lomotil] 2.5-0.025 mg tablet 1 tab PO 4X/DAY PRN PRN (Reason: diarrhea) 5 Days Qty: 20 0RF Primary Care Provider: Care Physician,No Primary Referrals: Care Physician,No Primary [Primary Care Provider] - Doctor,Your [Non-Staff] - 3-5 Days if not improving Activity Restrictions/Additional Instructions: 1. The name of your doctor is located on your insurance card issued to you [facility] 2. Increase fluid intake today 3. You need to take your medication as prescribed and you need to be compliant with your diet Disposition Disposition: Home, Self Care What to do if you have Problems For any increased pain, shortness of breath, bleeding, nausea or vomiting, chestpain, or any unexpected problems, contact your Primary Care Provider. Call [facility] ([phone]) or report to the closest Emergency Room. Call 911 if necessary. 11/25/22 1503 <Electronically signed by Ar Calle MD> Cosigner Signature (if applicable): CC: No Primary Care Physician ~ Signed [facility] Work Phone: [phone] History of Past illness Narrative* Problem Noted Date Diagnosed Date Resolved Date Ankle fracture, left 10/13/2015 017 COPD (chronic obstructive pulmonary disease) 1 11/17/2019 documented as of this encounter (statuses as of 08/18/2023) [facility] January 18, 2023 9:52am Note Date/Time January 18, 2023 8:1 7am [facility] Medical Records Department [address] [place] [address] Emergency Department Summary 01/18/23 MR#: [id number] Acct: [id number] Name: JERALD YODER Rep #:[id number] : 1960 62 From: Bernard Chavez MD PCP: Dr. Linden Chavez, DO Status:REG ER Location: ED HPI History of Present Illness Chief Complaint: Diarrhea Narrative Narrative: Patient presents with diarrhea for the past few hours, it is watery and he has had 4 episodes. He has no abdominal pain or abdominal cramping he has no back pain or flank pain. He is denying urinary symptoms no chest pain or shortness of breath, he feels lightheaded when he stands up. [facility] Medical History Back pain due to injury Chronic pain COPD (chronic obstructive pulmonary disease) Current use of insulin Depression Diabetes Esophageal candidiasis High cholesterol History of stress test Hyperlipidemia Hypertension Injury of head and neck Myocardial infarct Non-smoker Restless legs Sleep apnea Home Medications metformin 500 mg tablet,extended release 24 hr 500 mg PO BID diabetes 05/02/19 [History Last Taken 03/18/22] fluconazole 200 mg tablet (Diflucan) 200 mg PO DAILY antibiotic 03/19/22 [History Last Taken 03/18/22] glipizide 5 mg tablet 5 mg PO BID diabetes 03/19/22 [History Last Taken 03/18/22] insulin glargine 100 unit/mL (3 mL) subcutaneous pen (Lantus Solostar U-100 Insulin) 10 unit subcut BID diabetes 03/19/22 [History Last Taken 03/18/22] ondansetron 4 mg disintegrating tablet 4 mg PO Q8H PRN nausea and vomiting #10 tabs 04/26/22 [Rx Last Taken Unknown] permethrin 5 % topical cream (Elimite) 1 applic topical Q14D 2 doses #60 grams 05/26/22 [Rx Last Taken Unknown] prednisone 10 mg tablet 10 mg PO DAILY #30 tabs 05/26/22 [Rx Last Taken Unknown] tramadol 50 mg tablet 50 mg PO Q4H PRN PRN Pain 2 days #12 tabs 07/03/22 [Rx Last Taken Unknown] dicyclomine 20 mg tablet 20 mg PO TID PRN abdominal cramping #20 tabs 08/07/22 [Rx Last Taken Unknown] ondansetron 4 mg disintegrating tablet 4 mg PO Q8H PRN nausea and vomiting #10 tabs 09/18/22 [Rx Last Taken Unknown] diphenoxylate-atropine 2.5 mg-0.025 mg tablet (Lomotil) 1 tab PO 4X/DAY PRN PRN diarrhea 5 days #20 tabs 10/30/22 [Rx Last Taken Unknown] glipizide 5 mg tablet 5 mg PO DAILY #60 tabs 12/11/22 [Rx Last Taken Unknown] insulin glargine 100 unit/mL subcutaneous solution (Lantus U-100 Insulin) 10 unit (0.1 mL) subcut QPM #10 mL 12/11/22 [Rx Last Taken Unknown] metformin 500 mg tablet 500 mg PO DAILY #60 tabs 12/11/22 [Rx Last Taken Unknown] Allergy/AdvReac Type Severity Reaction Status Date / Time diphenhydramine HCl Allergy Rash Verified 12/11/22 16:13 [From Benadryl] Penicillins Allergy Rash Verified 12/11/22 16:13 venom-honey bee Allergy Swelling Verified 12/11/22 16:13 [bee venom (honey bee)] Surgical History History of coronary artery stent placement Social History household members: none Smoking Status: Never smoker substance use type: does not use ROS ROS ED ROS Narrative Past medical history: Reviewed, includes coronary artery disease, hypertension, hypothyroidism, diabetes, history of pancreatitis, history of alcohol abuse. Medications: Reviewed in [facility], the nurse had just gone over them with the patient. Social history: Noncontributory Review of systems: All systems negative except as indicated General: No fever, he does feel somewhat lightheaded Eyes: No visual changes ENT: No upper airway congestion, normal voice Neck: No neck pain Cardiovascular: No chest pain Respiratory: No shortness of breath or cough Gastrointestinal: No abdominal pain, no nausea or vomiting. 4 episodes of watery diarrhea as in HPI Genitourinary: No dysuria Musculoskeletal: Denies myalgias no difficulty with ambulation Skin: No rash Neurological: No memory loss, confusion or any focal weakness Hematologic: No easy bleeding or easy bruising EXAM Physical Exam Const Vital Signs: 01/18/23 07:58 01/18/23 09:41 Temperature 97.9 F Temperature Source Oral Pulse Rate 76 71 Respiratory Rate 16 16 Blood Pressure 126/88 H 149/88 H Blood Pressure Mean 100 108 Pulse Ox 98 93 Oxygen Delivery Method Room Air Room Air MDM MDM MDM Narrative Medical decision making narrative: A. Problems addressed Patient had slight dehydration, he felt lightheaded when he stands up he was given IV fluids and significantly improved. He also has diarrhea, this is somewhat chronic we did send a stool specimen which is negative so far. He feels better he wants to be discharged which is reasonable. At this time he hasa normal white count, worried about an intra-abdominal pathology especially thathe has no abdominal pain I am not worried about diverticulitis or appendicitis or any kind of colitis. He is slightly hyperglycemic, he has a history of diabetes I do not believe at this time I need to address it especially that the blood sugars below 200s. B. Amount and/or complexity of the data 1. CBC and CMP were interpreted by me as normal C. Risk of complications and/or morbidity Differential diagnosis: See above Lab Data Labs: Laboratory Results - last 24 hr 01/18/23 01/18/23 08:04 08:04 WBC 8.4 RBC 5.01 Hgb 14.4 Hct 40.9 MCV 81.6 MCH 28.7 MCHC 35.2 RDW Std Deviation 39.6 RDW Coeff of Manjinder 13.4 Plt Count 199 MPV 8.9 Immature Gran % (Auto) 0.200 Neut % (Auto) 71.9 H Lymph % (Auto) 18.0 L [place] % (Auto) 6.8 Eos % (Auto) 2.6 Baso % (Auto) 0.5 Absolute Neuts (auto) 6.0 Absolute Lymphs (auto) 1.51 Nucleated RBC % 0 Sodium 139 Potassium 3.4 L Chloride 105 Carbon Dioxide 28.0 Anion Gap 6 BUN 11 Creatinine 0.94 Estim Creat Clear Calc 102.69 Est GFR (MDRD) Af Amer 105 Est GFR (MDRD) Non-Af 86 BUN/Creatinine Ratio 11.7 Glucose 182 H Calcium 8.3 L Total Bilirubin 0.90 AST 10 L ALT 14 L Alkaline Phosphatase 64 Total Protein 6.9 Albumin 3.7 Globulin 3.2 Albumin/Globulin Ratio 1.2 Discharge Plan Triage Chief Complaint: Diarrhea ED Provider: Bernard Chavez Dx/Rx/DC Orders Clinical Impression: Acute dehydration, Diarrhea Instructions: Dehydration, ED Diarrhea, Unknown Cause Prescriptions: No Action metformin 500 MG tablet 500 mg PO BID Label Comments: diabetes insulin glargine [Lantus Solostar U-100 Insulin] 100 unit/mL (3 mL) Insulin Pen 10 unit SUBCUT BID fluconazole [Diflucan] 200 mg tablet 200 mg PO DAILY glipizide 5 mg tablet 5 mg PO BID Rx Instructions: Hold if glucose less than 130 mg/dl ondansetron 4 mg tablet,disintegrating 4 mg PO Q8H PRN (Reason: nausea and vomiting) Qty: 10 0RF permethrin [Elimite] 5 % cream 1 applic topical Q14D Qty: 60 0RF Rx Instructions: apply second treatment 14 days after first treatment if live lice remain prednisone 10 mg tablet 10 mg PO DAILY Qty: 30 0RF Rx Instructions: 4 pills by mouth days 1 through 3 3 pills by mouth days 4 through 6 2 pills by mouth days 7 through 9 1 pill by mouth days 10 through 12 tramadol 50 mg tablet 50 mg PO Q4H PRN PRN (Reason: Pain) 2 Days Qty: 12 0RF dicyclomine 20 mg tablet 20 mg PO TID PRN (Reason: abdominal cramping) Qty: 20 0RF ondansetron 4 mg tablet,disintegrating 4 mg PO Q8H PRN (Reason: nausea and vomiting) Qty: 10 0RF diphenoxylate-atropine [Lomotil] 2.5-0.025 mg tablet 1 tab PO 4X/DAY PRN PRN (Reason: diarrhea) 5 Days Qty: 20 0RF glipizide 5 mg tablet 5 mg PO DAILY Qty: 60 0RF metformin 500 mg tablet 500 mg PO DAILY Qty: 60 0RF insulin glargine [Lantus U-100 Insulin] 100 unit/mL solution 10 unit subcut QPM Qty: 10 0RF Primary Care Provider: Linden Chavez Referrals: Linden Chavez DO [Primary Care Provider] - 3-5 Days Disposition Disposition: Home, Self Care What to do if you have Problems For any increased pain, shortness of breath, bleeding, nausea or vomiting, chestpain, or any unexpected problems, contact your Primary Care Provider. Call [facility] ([phone]) or report to the closest Emergency Room. Call 911 if necessary. 01/18/23951 <Electronically signed by Bernard Chavez MD> Cosigner Signature (if applicable): CC: Dr. Linden Chavez DO ~ Signed [facility] Work Phone: Discharge summary Author Johann Lemons [facility] March 08, 2024 8:59am Note Date/Time March 08, 2024 8:14am [facility] Medical Records Department [address] [place] [id number] Emergency Department Summary 03/08/24 MR#: [id number] Acct: [id number] Name: JERALD YODER Rep #:[id number] : 1960 63 From: Johann Lemons DO PCP: Dr. Linden Chavez DO Status:REG ER Location: ED HPI History of Present Illness Chief Complaint: Abd Pain Informant: patient Narrative Narrative: Patient is a 63-year-old male with past medical history of hypertension hyperlipidemia hypothyroidism and insulin-dependent diabetes. He states for 2 days he had 3-4 episodes of loose stool/diarrhea. He reports there was no associated nausea or vomiting and he denies any recent sick contacts or travel outside the country or antibiotic use. He states he took Pepto-Bismol and Imodium A-D and this helped stop the diarrhea. However today he felt he had to have a bowel movement and could not do so and therefore comes to the hospital for evaluation. 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 Restless legs Sleep apnea Home Medications metformin 500 mg tablet,extended release 24 hr 500 mg PO BID diabetes 05/02/19 [History Last Taken 03/18/22] fluconazole 200 mg tablet (Diflucan) 200 mg PO DAILY antibiotic 03/19/22 [History Last Taken 03/18/22] glipizide 5 mg tablet 5 mg PO BID diabetes 03/19/22 [History Last Taken 03/18/22] insulin glargine 100 unit/mL (3 mL) subcutaneous pen (Lantus Solostar U-100 Insulin) 10 unit subcut BID diabetes 03/19/22 [History Last Taken 03/18/22] ondansetron 4 mg disintegrating tablet 4 mg PO Q8H PRN nausea and vomiting #10 tabs 04/26/22 [Rx Last Taken Unknown] dicyclomine 20 mg tablet 20 mg PO TID PRN abdominal cramping #20 tabs 08/07/22 [Rx Last Taken Unknown] diphenoxylate-atropine 2.5 mg-0.025 mg tablet (Lomotil) 1 tab PO 4X/DAY PRN PRN diarrhea 5 days #20 tabs 10/30/22 [Rx Last Taken Unknown] cyclobenzaprine 10 mg tablet 10 mg PO TID PRN Muscle Spasm #20 TABLETS 08/26/23 [Rx Last Taken Unknown] hydrocortisone 1 % topical cream 1 applic topical TID PRN skin irritation #28.4 grams 08/26/23 [Rx Last Taken Unknown] ibuprofen 600 mg tablet 600 mg PO Q8H PRN PRN pain #20 TABLETS 08/26/23 [Rx Last Taken Unknown] ciprofloxacin HCl 500 mg tablet (Cipro) 500 mg PO BID #20 tabs 09/29/23 [Rx Last Taken Unknown] insulin glargine 100 unit/mL subcutaneous solution (Lantus U-100 Insulin) 1 unitsubcut QPM 09/29/23 [History Last Taken Unknown] levothyroxine 100 mcg tablet 100 mcg PO DAILY 09/29/23 [History Last Taken Unknown] metronidazole 500 mg tablet 500 mg PO BID 10 days #20 tabs 09/29/23 [Rx Last Taken Unknown] magnesium citrate (Citrate of Magnesia oral) 300 ml PO DAILY PRN constipation #296 mL 12/08/23 [Rx Last Taken Unknown] meclizine 25 mg tablet 25 mg PO TID #30 tabs 12/08/23 [Rx Last Taken Unknown] polyethylene glycol 3350 17 gram/dose oral powder (Miralax) 17 g PO DAILY #510 grams 03/08/24 [Rx Last Taken Unknown] Allergy/AdvReac Type Severity Reaction Status Date / Time diphenhydramine HCl Allergy Rash Verified 03/08/24 06:23 [From Benadryl] Penicillins Allergy Rash Verified 03/08/24 06:23 venom-honey bee Allergy Swelling Verified 03/08/24 06:23 [bee venom (honey bee)] Surgical History History of coronary artery stent placement Hx of inguinal herniorrhaphy Hx of left knee surgery Social History household members: none Smoking Status: Never smoker substance use type: does not use ROS ROS ED Constitutional Constitutional ED: Denies chills or fever(s) ENT ENT ED: Denies sore throat Cardiovascular Cardiovascular: Denies chest pain Respiratory/Chest Respiratory/Chest: Denies cough or dyspnea Gastrointestinal Gastrointestinal: Reports abdominal pain and constipation; Denies diarrhea, nausea or vomiting Genitourinary Genitourinary ED: Denies dysuria Musculoskeletal Musculoskeletal: Denies myalgias Integumentary Denies rash Neurologic Neurologic: Denies headache(s) Hematologic/Lymphatic Hematologic/Lymphatic: Denies easy bleeding or easy bruising EXAM Physical Exam Const Vital Signs: 03/08/24 06:24 03/08/24 07:55 Temperature 97 F L Temperature Source Temporal Pulse Rate 76 83 Respiratory Rate 18 14 Blood Pressure 152/79 H 151/81 H Blood Pressure Mean 103 104 Pulse Ox 94 97 Oxygen Delivery Method Room Air Room Air Positive well nourished, well developed and obese General Appearance ED: well developed; Negative for pallor Nutritional Appearance: obese HEENT Reports dry mucous membranes HEENT Narrative: Mucous membranes are dry and tacky No tongue or lip swelling no oral lesions no airway edema or compromise No secondary changes in the posterior pharynx to suggest infection Mouth ED: Yes dry mucous membranes Mouth: dry mucous membranes Eyes PERRL and EOMs intact bilaterally General Eye ED: Negative for scleral icterus Neck supple Neck Narrative: No nuchal rigidity or meningeal signs Resp normal respiratory effort and clear to auscultation bilaterally Cardio regular rate and regular rhythm GI non-tender and no masses GI Narrative: Abdomen is soft with slight distention and hypoactive bowel sounds. There is nopain with palpation. No voluntary guarding or rigidity. Slight increased tympany in the midepigastric region. Auscultation: hypoactive bowel sounds Palpation: soft Extremity normal to inspection Neuro oriented x3, CN's II-XII intact bilaterally and no sensory deficits noted Sensorium / Orientation: alert Motor Exam: strength 5/5 throughout Psych mental status grossly normal Skin no rashes or lesions noted and No skin turgor normal Skin Narrative: Skin turgor is increased General Skin Exam: Negative for jaundice or pallor MDM MDM MDM Narrative Medical decision making narrative: Patient presented to the ER with stable vitals and a soft nonsurgical abdomen. He reported 2 days of diarrhea which he controlled with Imodium A-D and Pepto- Bismol. However today he is describing more constipation. Differential diagnosis is for medication induced constipation versus dehydration versus obstruction. Blood work revealed hyperglycemia but no changes to suggest diabetic ketoacidosis as his anion gap and serum bicarbonate are normal. His serum osmolality level is also technically normal at a value of 315. The patient's x-ray question ileus versus developing obstruction and as he does haveconstipation and concern for potential obstruction a CT scan of the abdomen pelvis was added. At this time he is receiving 2 L of fluid secondary to the hyperglycemia. As he is normally hyperglycemic based on chart review and not inDKA or HHS I do not feel he needs admitted based on this value. His CT scan showed constipation without obstructive or perforation or infectious process andtherefore he is otherwise safe for discharge. History & Record Review Discussion w/independent historian: Patient Lab Data Attestation: I reviewed the patient's lab results. Labs: Laboratory Results - last 24 hr 03/08/24 06:45 WBC 7.3 RBC 5.22 Hgb 14.8 Hct 42.9 MCV 82.2 MCH 28.4 MCHC 34.5 RDW Std Deviation 39.7 RDW Coeff of Manjinder 13.3 Plt Count 194 MPV 9.6 Immature Gran % (Auto) 0.400 Neut % (Auto) 65.4 Lymph % (Auto) 22.8 [place] % (Auto) 6.9 Eos % (Auto) 3.9 Baso % (Auto) 0.6 Absolute Neuts (auto) 4.8 Absolute Lymphs (auto) 1.65 Nucleated RBC % 0 Sodium 134 L Potassium 4.0 Chloride 97 L Carbon Dioxide 31.0 Anion Gap 6 BUN 16 Creatinine 0.96 Estim Creat Clear Calc 99.26 Est GFR (MDRD) Af Amer 102 Est GFR (MDRD) Non-Af 84 BUN/Creatinine Ratio 16.7 Glucose 520 H* Calcium 9.5 Total Bilirubin 0.60 Direct Bilirubin 0.19 AST 12 L ALT 22 Alkaline Phosphatase 84 Total Protein 7.2 Albumin 3.7 Globulin 3.5 Lipase 17 Radiography Diagnostic Testing: Clinical Impression(s) from Imaging Studies Acute Abdomen Series 03/08/24 06:47 IMPRESSION: 1. Prominent bowel gas, possibly representing ileus. Mechanical obstruction is thought to be unlikely, however, if symptoms warrant, CT scan should be considered for further evaluation. 2. Mild chronic changes in the lung bases. No evidence for acute cardiopulmonary pathology. Electronically Signed: Alex Maza MD at 7:52 EDT Reading Location ID and State: [facility] / [place] , Service support , Acute abdominal series with 1 view chest as interpreted by the emergency medicine physician reveals prominent gas pattern/intestinal distention in the mid abdomen concerning for ileus versus obstruction. Chest x-ray component reveals no acute infiltrate or pneumothorax or pleural effusion. Discharge Plan Triage Chief Complaint: Abd Pain ED Provider: Johann Lemons Dx/Rx/DC Orders Clinical Impression: Insulin dependent diabetes mellitus, Hyperglycemia, Dehydration, Constipation Instructions: ED Constipation (Adult), ED Diabetic Hyperglycemia Prescriptions: New polyethylene glycol 3350 [Miralax] 17 gram/dose powder 17 g PO DAILY Qty: 510 1RF No Action metformin 500 MG tablet 500 mg PO BID Patient Comments: diabetes insulin glargine [Lantus Solostar U-100 Insulin] 100 unit/mL (3 mL) Insulin Pen 10 unit SUBCUT BID fluconazole [Diflucan] 200 mg tablet 200 mg PO DAILY glipizide 5 mg tablet 5 mg PO BID Rx Instructions: Hold if glucose less than 130 mg/dl ondansetron 4 mg tablet,disintegrating 4 mg PO Q8H PRN (Reason: nausea and vomiting) Qty: 10 0RF dicyclomine 20 mg tablet 20 mg PO TID PRN (Reason: abdominal cramping) Qty: 20 0RF diphenoxylate-atropine [Lomotil] 2.5-0.025 mg tablet 1 tab PO 4X/DAY PRN PRN (Reason: diarrhea) 5 Days Qty: 20 0RF meclizine 25 mg tablet 25 mg PO TID Qty: 30 0RF magnesium citrate [Citrate of Magnesia] Solution 300 ml PO DAILY PRN (Reason: constipation) Qty: 296 0RF Rx Instructions: Drink one half bottle if no bowel movement within 4 hours drink the second half of the bottle ibuprofen 600 mg tablet 600 mg PO Q8H PRN PRN (Reason: pain) Qty: 20 0RF cyclobenzaprine 10 mg tablet 10 mg PO TID PRN (Reason: Muscle Spasm) Qty: 20 0RF hydrocortisone 1 % cream 1 applic topical TID PRN (Reason: skin irritation) Qty: 28.4 0RF levothyroxine 100 mcg tablet 100 mcg PO DAILY Patient Comments: Take 1 tab by mouth once daily on an empty stomach insulin glargine [Lantus U-100 Insulin] 100 unit/mL solution 1 unit subcut QPM ciprofloxacin HCl [Cipro] 500 mg tablet 500 mg PO BID Qty: 20 0RF metronidazole 500 mg tablet 500 mg PO BID 10 Days Qty: 20 0RF Primary Care Provider: Linden Chavez Referrals: Linden Chavez DO [Primary Care Provider] - Activity Restrictions/Additional Instructions: Your CT scan showed no sign of bowel blockage. It did show changes consistent with constipation . Take MiraLAX as directed every day to prevent these recurrent issues . please keep yourself well-hydrated and continue to take your diabetic medication as directed. Return to the ER should you have any further concerns. Disposition Disposition: Home, Self Care What to do if you have Problems For any increased pain, shortness of breath, bleeding, nausea or vomiting, chestpain, or any unexpected problems, contact your Primary Care Provider. Call [facility] ([phone]) or report to the closest Emergency Room. Call 911 if necessary. 03/08/24 0859 <Electronically signed by Johann Lemons DO> Cosigner Signature (if applicable): CC: Dr. Linden Chavez, ~ Signed [facility] Work Phone: Evbgmation note* Diagnosis Onset Date Resolution Status Abdominal pain resolved Diarrhea resolved Gastroparesis resolved Hyperglycemia resolved [facility] Work Phone: Evrhnation note* Diagnosis Onset Date Resolution Status Abdominal pain resolved Diarrhea resolved Gastroparesis resolved Hyperglycemia resolved Acute diarrhea acute Generalized weakness acute Transient hypotension acute [facility] Work Phone: evaluation note* Diagnosis Onset Date Resolution Status Abdominal pain resolved Diarrhea resolved Gastroparesis resolved Hyperglycemia resolved Acute diarrhea resolved Generalized weakness resolve d Transient hypotension resolv ed [facility] Work Phone: Evaluation note* Diagnosis Onset Date Resolution Status Acute diarrhea resolved Generalized weakness resolve d Transient hypotension resolv ed [facility] Work Phone: Evaluation noteNo assessment information available [facility] Work Phone: Evabywpsyh note* Diagnosis Bilateral impacted cerumen- Primary Impacted cerumen documented in this encounter [facility] note* Diagnosis Bilateral impacted cerumen- Primary Impacted cerumen documented in this encounter [facility] note* Diagnosis Eustachian tube dysfunction, bilateral- Primary [facility] Work Phone[facility] Dis[facility] instructionsWSal[facility] Work Phone: Hospital Discharge instructionsWSalem City Hospital Work Phone: Hospital Discharge instructions Additional Instructions 1. The name of your doctor is located on your insurance card issued to you from [facility] 2. Increase fluid intake today 3. You need to take your medication as prescribed and you need to be compliant with your dietWo[facility] [place] [place] Work Phone: Hospital Discharge instructions Additional Instructions Blood glucose 250. Labs stable EKG normal. Continue oral fluids. Follow-up with your doctor to restart heart your medications.[facility] Work Phone: Hospital Discharge instructions Additional Instructions Laboratory studies stable glucose 340s with no signs of DKA. Insulin with improvement down to 130s. Continue oral fluids for hydration. Follow-up with your doctor. Return if worsening symptoms.[facility] Work Phone: Hospital Discharge instructions Additional Instructions Pepto-Bismol will turn his stools black. This is an expected side effect of that medication, you are testing negative for blood, so likely due to that medication. If you take it in the future and to turn your stool black temporarily, you do not need to be concerned. If you see blood return to the ER.[facility] Work Phone: Hospital Discharge instructions Additional Instructions Your CT showed no broken bones. Use ice and take [id number] Tylenol and Motrin as needed for pain.[facility] Work Phone: Hospital Discharge instructions Additional Instructions Your CT scan showed no sign of bowel blockage. It did show changes consistent with constipation . Take MiraLAX as directed every day to prevent these recurrent issues . please keep yourself well-hydrated and continue to take your diabetic medication as directed. Return to the ER should you have any further concerns.[facility] Work Phone: Hospital Discharge instructions Additional Instructions When you get home drink half the bottle of magnesium citrate. If you do not have a bowel movement in 4 hours finished the bottle. Once the magnesium citrate is stimulated bowel movement continue to the MiraLAX daily to help with recurrent bowel movements and resolve your constipation.[facility] Work Phone: Hospital Discharge instructions Additional Instructions Your workup today did not show any signs of DKA or HHS. Your x-ray did not reveal any signs of pneumonia. Your urine sample does show changes concerning for developing infection and with your congestion and cough but overall negative workup you also have a viral upper respiratory tract infection. Both of these illnesses can be driving up your blood sugar and making you feel weak. Please take the antibiotic as directed secondary to your urine sample showing signs of infection and continue to treat your blood sugar as directed by your doctor. Stay well- hydrated and return to the ER should you have any further concernsWSalem City Hospital Work Phone: Hospital Discharge instructions Additional Instructions Thank you for trusting us with your care today! Please take Tylenol (2 pills, 650 mg), ibuprofen (2 pills, 400 mg) every 6 hours as needed for pain and fever control. Please return to the emergency department if your symptoms change or worsen. Please follow with your primary care physician for further outpatient evaluation and management.[facility] Work Phone: Reason for referral (narrative)No reason for referral information availableWSalem City Hospital Work Phone: Hospital Course * Zahira Myrick MD - 10/06/2019 3:22 PM EST Discharge [...] DISCHARGE MEDICATIONS: Jerald Yoder Home Medication Instructions IFEOMA:[id number] Printed on:10/06/19 2454 Medication Information aspirin 81 MG tablet Take [...] Complexity: follow up within 7-14 calendar days (32948) [] Severe Complexity: follow up within 7 calendar days (44089) FOLLOW UP TESTING, PENDING RESULTS OR REFERRALS [...] frame. DISCHARGE TIME: > 30 minutes SIGNED: ZAHIRA MYRICK MD 10/06/2019, 3:22 PM documented in this encounter Discharge Instructions * Discharge Instr - Activity* Zahira Myrick MD - 10/06/2019 2:49 PM EST As tolerated * Discharge Instr - Diet* Zahira Myrick MD - 10/06/2019 2:49 PM EST ? [...] at most local grocery stores, pharmacies, and [employer]-stores. ? If you have any questions about your diet or nutrition, call the hospital and ask for the dietitian. ? Carb control diet documented in this encounter History of Present Illness * Zahira Myrick MD - 10/07/2019 9:13 AM EST Patient was discharged yesterday but had issues securing a ride home therefore he was kept overnight. He now has a ride and will leave this AM. * Milagros Mckeon DTR - 10/07/2019 8:47 AM EST Nutrition rescreen completed. Chart reviewed. Patient to be monitored and followed by the diet obstetrics technician. * Vini Calloway RN - 10/06/2019 1:[address] Myrick informed that patient has complaints of burning at IV site when potassium is infusing. 10mEq of potassium chloride already given via IV route at 1145 prior to patient leaving the floor forEGD procedure. Patient requesting to not have any additional IV potassium infusions. Per Dr. Myrick, order entered for 30mEq of po potassium chloride once. Dr. Myrick also discontinued remaining 30mEq of IV potassium. 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 Advance Directives and Living Will Power of Product Development Carpenter Latest Code Status on File Code Status Date Activated Date Inactivated Comments Full Code 10/06/2019 11:12 AM Full Code 10/05/2019 5:27 PM 10/06/2019 11:12 AM Advance Directive Response Recorded Date/ Time Advance Directives No November 30, 2016 10:29am Living Will No March 02, 2022 7: 27pm Power of Product Development Carpenter No March 02, 2022 7:27pm Advance Directive Response Recorded Date/ Time Advance Directives No November 30, 2016 10:29am Living Will No March 19, 2022 5 :35pm Power of Product Development Carpenter No March 19, 2022 5:35pm Advance Directive Response Recorded Date/ Time Advance Directives No November 30, 2016 10:29am Living Will No March 19, 2022 1 1:38pm Power of Product Development Carpenter No March 19, 2022 11:38pm Advance Directive Response Recorded Date/ Time Advance Directives No November 30, 2016 10:29am Living Will No April 26, 2022 2:33pm Power of Product Development Carpenter No April 26 2:33pm Advance Directive Response Recorded Date/ Time Advance Directives No November 30, 2016 10:29am Living Will No May 26, 2022 1:38am Power of Product Development Carpenter No May 26 1:38am Advance Directive Response Recorded Date/ Time Advance Directives No November 30, 2016 10:29am Living Will No July 02 9:45pm Power of Product Development Carpenter No July 02, 2022 9:45pm Advance Directive Response Recorded Date/ Time Advance Directives No November 30, 2016 10:29am Living Will No August 07 6:50pm Power of Product Development Carpenter No August 07 6:50pm Advance Directive Response Recorded Date/ Time Advance Directives No November 30, 2016 9:29am Living Will No September 18 10:57am Power of Product Development Carpenter No September 18, 2022 10:57am Advance Directive Response Recorded Date/ Time Advance Directives No November 30, 2016 9:29am Living Will No November 25 2:07pm Power of Product Development Carpenter No November 25, 2022 2:07pm Advance Directive Response Recorded Date/ Time Advance Directives No November 30, 2016 9:29am Living Will No December 10 9:57am Power of Product Development Carpenter No December 10, 2022 9:57am Advance Directive Response Recorded Date/ Time Advance Directives No November 30, 2016 9:29am Living Will No December 11 023 4:20pm Power of Product Development Carpenter No December 11, 2022 4:20pm Advance Directive Response Recorded Date/ Time Advance Directives No November 30, 2016 10:29am Living Will No January 18, 2023 8:03am Power of Product Development Carpenter No January 18 8:03am Advance Directive Response Recorded Date/ Time Advance Directives No November 30, 2016 10:29am Living Will No March 07, 2023 1: 12am Power of Product Development Carpenter No March 07, 2023 1:12am Advance Directive Response Recorded Date/ Time Advance Directives No November 30, 2016 10:29am Living Will No May 12, 2023 3:57pm Power of Product Development Carpenter No May 12 3:57pm Advance Directive Response Recorded Date/ Time Advance Directives No November 30, 2016 10:29am Living Will No August 26 5:10am Power of Product Development Carpenter No August 26, 2023 5:10am Advance Directive Response Recorded Date/ Time Advance Directives No November 30, 2016 9:29am Living Will No September 29, 023 8:45pm Power of Product Development Carpenter No September 29, 2023 8:45pm Advance Directive Response Recorded Date/ Time Advance Directives No November 30, 2016 9:29am Living Will No September 30 11:40pm Power of Product Development Carpenter No September 30, 2023 11:40pm Advance Directive Response Recorded Date/ Time Advance Directives No November 30, 2016 9:29am Living Will No November 22 2:25pm Power of Product Development Carpenter No November 22, 2023 2:25pm Advance Directive Response Recorded Date/ Time Advance Directives No November 30, 2016 9:29am Living Will No December 08 12:56pm Power of Product Development Carpenter No December 08, 2023 12:56pm Advance Directive Response Recorded Date/ Time Advance Directives No November 30, 2016 9:29am Living Will No December 18 4:23pm Power of Product Development Carpenter No December 18, 2023 4:23pm Advance Directive Response Recorded Date/ Time Advance Directives No November 30, 2016 9:29am Living Will No December 25 8:47am Power of Product Development Carpenter No December 25, 2023 8:47am Advance Directive Response Recorded Date/ Time Advance Directives No November 30, 2016 10:29am Living Will No December 25 9:47am Power of Product Development Carpenter No December 25, 2023 9:47am Advance Directive Response Recorded Date/ Time Advance Directives No November 30, 2016 10:29am Living Will No January 26, 2024 11:41pm Power of Product Development Carpenter No January 25 11:41pm Advance Directive Response Recorded Date/ Time Advance Directives No November 30, 2016 10:29am Living Will No February 07, 2024 7:17pm Power of Product Development Carpenter No February 06 7:17pm Advance Directive Response Recorded Date/ Time Advance Directives No November 30, 2016 10:29am Living Will No March 08, 2024 6: 24am Power of Product Development Carpenter No March 08, 2024 6:24am Advance Directive Response Recorded Date/ Time Advance Directives No November 30, 2016 10:29am Living Will No March 09, 2024 1 :35am Power of Product Development Carpenter No March 09, 2024 1:35am Advance Directive Response Recorded Date/ Time Living Will No October 19 4:56am Do you have a Healthcare Power of Product Development Carpenter? No October 19, 2024 4:56am Living Will No December 20, 025 6:56pm Do you have a Healthcare Power of Product Development Carpenter? No December 20, 2024 6:56pm Living Will No October 30, 024 1:19am Do you have a Healthcare Power of Product Development Carpenter? No October 30, 2024 1:19am Living Will No November 27 2:38pm Do you have a Healthcare Power of Product Development Carpenter? No November 27, 2024 2:38pm Living Will No December 08 1:33pm Do you have a Healthcare Power of Product Development Carpenter? No December 08, 2024 1:33pm Living Will No December 27, 2 025 2:11am Do you have a Healthcare Power of Product Development Carpenter? No December 27, 2024 2:11am Living Will No February 16, 2025 4:01am Do you have a Healthcare Power of Product Development Carpenter? No February 16, 2025 4:01am Advance Directives No November 30, 2016 10:29am Advance Directive Response Recorded Date/ Time Living Will No December 20 025 6:56pm Do you have a Healthcare Power of Product Development Carpenter? No December 20, 2024 6:56pm Living Will No November 27 2:38pm Do you have a Healthcare Power of Product Development Carpenter? No November 27, 2024 2:38pm Living Will No December 08 1:33pm Do you have a Healthcare Power of Product Development Carpenter? No December 08, 2024 1:33pm Living Will No December 27 025 2:11am Do you have a Healthcare Power of Product Development Carpenter? No December 27, 2024 2:11am Living Will No February 16, 2025 4:01am Do you have a Healthcare Power of Product Development Carpenter? No February 16, 2025 4:01am Do you have a Healthcare Power of Product Development Carpenter? No March 26, 2025 9:53pm Advance Directives No November 30, 2016 10:29am Summary Purpose Family History No Family History Records Found Relationship Condition Age at Onset Recorded Date/T yaz Unknown Family History?Heart Disease, Pulmonary Disease Unknown October 31, 2019 7:47pm Family History?Unknown Unknown March 062016 1:05am Family History?Unknown Unknown Octedin 2019 7:47pm Additional Family Hi story?No heart disease Unknown September 01, 2017 7:47pm Relationship Condition Age at Onset Recorded Date/T yaz Unknown Family History?Heart Disease, Pulmonary Disease Unknown October 31, 2019 6:47pm Family History?Unknown Unknown March 062016 12:05am Family History?Unknown Unknown Octedin 2019 6:47pm Additional Family Hi story?No heart disease Unknown September 01, 2017 6:47pm Chief Complaint and Reason for Visit Chief Complaint COUGH HYPERGLYCEMIA DIARRHEA, ABNORMAL CT DIARRHEA, ABNORMAL CT DIARRHEA, ABNORMAL CT DIARRHEA, ABNORMAL CT DIARRHEA, ABNORMAL CT DIARRHEA, ABNORMAL CT DIARRHEA diarrhea DIARRHEA Reason for Visit Abdominal pain Diarrhea Gastroparesis Hyperglycemia Chief Complaint DIARRHEA, ABNORMAL C T DIARRHEA, ABNORMAL CT DIARRHEA, ABNORMAL CT DIARRHEA, ABNORMAL CT DIARRHEA, ABNORMAL CT DIARRHEA, ABNORMAL CT DIARRHEA diarrhea DIARRHEA TRANSIENT HYPOTENSION Reason for Visit Abdominal pain Diarrhea Gastroparesis Hyperglycemia Acute diarrhea Generalized weakness Transient hypotension Chief Complaint DIARRHEA, ABNORMAL C T DIARRHEA, ABNORMAL CT DIARRHEA, ABNORMAL CT DIARRHEA, ABNORMAL CT DIARRHEA, ABNORMAL CT DIARRHEA, ABNORMAL CT DIARRHEA diarrhea DIARRHEA TRANSIENT HYPOTENSION WEAKNESS Weakness Reason for Visit Abdominal pain Diarrhea Gastroparesis Hyperglycemia Acute diarrhea Generalized weakness Transient hypotension Chief Complaint DIARRHEA, ABNORMAL C T DIARRHEA, ABNORMAL CT DIARRHEA, ABNORMAL CT DIARRHEA, ABNORMAL CT DIARRHEA, ABNORMAL CT DIARRHEA, ABNORMAL CT DIARRHEA diarrhea DIARRHEA TRANSIENT HYPOTENSION WEAKNESS Weakness ABD PAIN/WEAKNESS Reason for Visit Abdominal pain Diarrhea Gastroparesis Hyperglycemia Acute diarrhea Generalized weakness Transient hypotension Chief Complaint diarrhea DIARRHEA TRANSIENT HYPOTENSION WEAKNESS Weakness ABD PAIN/WEAKNESS poison elena Reason for Visit Acute diarrhea Generalized weakness Transient hypotension Chief Complaint TRANSIENT HYPOTENSIO N WEAKNESS Weakness ABD PAIN/WEAKNESS poison elena BACK PAIN Reason for Visit Acute diarrhea Generalized weakness Transient hypotension Chief Complaint ABD PAIN/WEAKNESS poison elena BACK PAIN DIZZY Chief Complaint poison elena BACK PAIN DIZZY n/v/d Chief Complaint DIZZY n/v/d syncope N/V/D Chief Complaint n/v/d syncope N/V/D WEAKNESS Chief Complaint n/v/d syncope N/V/D WEAKNESS nausea/vomitting Chief Complaint syncope N/V/D WEAKNESS nausea/vomitting diarhea 4x this am started around 0530 Chief Complaint N/V/D WEAKNESS nausea/vomitting diarhea 4x this am started around 0530 N/V/D Chief Complaint diarhea 4x this am s tarted around 0530 N/V/D leg Chief Complaint leg GENERAL COMPLAINTS left shoulder pain Chief Complaint GENERAL COMPLAINTS left shoulder pain N/D Chief Complaint GENERAL COMPLAINTS left shoulder pain N/D diarrhea Chief Complaint GENERAL COMPLAINTS left shoulder pain N/D diarrhea weakness Chief Complaint left shoulder pain N/D diarrhea weakness dizzines Chief Complaint left shoulder pain N/D diarrhea weakness dizzines Fall Chief Complaint N/D diarrhea weakness dizzines Fall HYPERGLYCEMIA Chief Complaint N/D diarrhea weakness dizzines Fall HYPERGLYCEMIA General Illness Chief Complaint weakness dizzines Fall HYPERGLYCEMIA General Illness weakness Chief Complaint weakness dizzines Fall HYPERGLYCEMIA General Illness weakness abd pain Chief Complaint weakness dizzines Fall HYPERGLYCEMIA General Illness weakness abd pain Constipation Chief Complaint Admit Date all energy drained from me while watchin g tv October 19, 2024 3:54am WEAKNESS October 29, 2024 9:38pm ABD PAIN November 27, 2024 1 :00pm general illness December 08, 2024 1 2:20pm N/V December 20, 2024 12:17pm LUGO WHEN I PEE December 26, 2024 11:50pm doesn't feel good February 16, 2025 4:0 1am Chief Complaint Admit Date ABD PAIN November 27, 2024 1 :00pm general illness December 08, 2024 1 2:20pm N/V December 20, 2024 12:17pm LUGO WHEN I PEE December 26, 2024 11:50pm doesn't feel good February 16, 2025 4:0 1am back pain, restless legs March 26, 2025 8:08pm Additional Source Comments (unrecognized sect ion and content) No Status Records FoundNo Status Records FoundNo Status Records Found INFORMATION SOURCE (unrecogn ized section and content) DATE CREATED AUTHOR 10/14/2019 [facility] DATE CREATED AUTHOR AUTHOR'S ORGANIZ ATION 12/16/2024 [facility] DATE CREATED AUTHOR AUTHOR'S ORGANIZ ATION 04/01/2025 [facility] Goals (unrecognized section and content) Goals may be documented in a n alternate sectionGoals may be documented in an alternate sectionGoals may be documented in an alternate sectionGoals may be documented in an alternate sectionGoals may be documented in an alternate sectionGoals may be documented in an alternate sectionGoals may be documented in an alternate sectionGoals may be documented in an alternate sectionGoals may be documented in an alternate sectionGoals may be documented in an alternate sectionGoals may be documented in an alternate sectionGoals may be documented in an alternate sectionGoals may be documented in an alternate sectionGoals may be documented in an alternate sectionGoals may be documented in an alternate sectionGoals may be documented in an alternate sectionGoals may be documented in an alternate sectionGoals may be documented in an alternate sectionGoals may be documented in an alternate sectionGoals may be documented in an alternate sectionGoals may be documented in an alternate sectionGoals may be documented in an alternate sectionGoals may be documented in an alternate sectionGoals may be documented in an alternate sectionGoals may be documented in an alternate sectionGoals may be documented in an alternate section Care Teams (unrecognized sec tion and content) Team Status: Active Member Role Status Dates Dr. Sushant Fernandez MD Family Provider Active No Primary Care Physician Primary Care Provider Active Team Status: Inactive Member Role Status Dates No Primary Care Physician Primary Care Provider Active Barry Mathew MD Attending Provider, Emergency Provid er Active Team Status: Inactive Member Role Status Dates No Primary Care Physician Primary Care Provider Active Dr. Keenan Wu DO Attending Provider, Emergency Provider Active Team Status: Inactive Member Role Status Dates No Primary Care Physician Primary Care Provider Active Dr. Johann Lemons DO Attending Provider, Emergency Pr ovider Active Team Status: Inactive Member Role Status Dates No Primary Care Physician Primary Care Provider Active Dr. Ar Calle MD Emergency Provider Active Team Status: Active Member Role Status Dates Dr. Sushant Fernandez MD Family Provider Active Dr. Iván Hassan MD Primary Care Provider Active Team Status: Inactive Member Role Status Dates No Primary Care Physician Primary Care Provider Active Dr. Ar Calle MD Attending Provider, Emergency Provi cristina Active Team Status: Inactive Member Role Status Dates Dr. Panchito Castillo DO Emergency Provider Active Dr. Iván Hassan MD Primary Care Provider Active Team Status: Inactive Member Role Status Dates Dr. Iván Hassan MD Primary Care Provider Active Dr. Keenan Wu DO Emergency Provider Active Team Status: Active Member Role Status Dates Dr. Sushant Fernandez MD Family Provider Active Dr. Linden Chavez DO Primary Care Provider Active Team Status: Inactive Member Role Status Dates Dr. Panchito Castillo DO Attending Provider, Emergency Provide r Active Dr. Iván Hassan MD Primary Care Provider Active Team Status: Inactive Member Role Status Dates Dr. Iván Hassan MD Primary Care Provider Active Dr. Keenan Wu DO Attending Provider, Emergency Provider Active Team Status: Inactive Member Role Status Dates Dr. Linden Chavez DO Primary Care Provider, Attendin g Provider Active Team Status: Inactive Member Role Status Dates Dr. Linden Chavez DO Primary Care Provider Active Dr. Bernard Chavez MD Emergency Provider Active Team Status: Inactive Member Role Status Dates Dr. Linden Chavez DO Primary Care Provider Active Dr. Bernard Chavez MD Attending Provider, Emergency Pr ovider Active Team Status: Inactive Member Role Status Dates Dr. Linden Chavez DO Primary Care Provider Active Dr. Panchito Castillo DO Emergency Provider Active Team Status: Inactive Member Role Status Dates Dr. Linden Chavez DO Primary Care Provider Active Dr. Panchito Castillo , DO Attending Provider, Emergency Provide r Active Team Status: Inactive Member Role Status Dates Dr. Linden Chavez DO Primary Care Provider Active Dr. Quan Feldman DO Emergency Provider Active Team Status: Inactive Member Role Status Dates Dr. Linden Chavez DO Primary Care Provider Active Dr. Quan Feldman , DO Attending Provider, Emergency P rovider Active Team Status: Inactive Member Role Status Dates Dr. Linden Chavez DO Primary Care Provider Active Dr. Ar Calle MD Attending Provider, Emergency Provi cristina Active Team Status: Inactive Member Role Status Dates Dr. Linden Chavez DO Primary Care Provider Active Dr. Shania Disla MD Emergency Provider Active Team Status: Inactive Member Role Status Dates Dr. Linden Chavez DO Primary Care Provider Active Dr. Shania Disla MD Attending Provider, Emergency Provider Active Team Status: Inactive Member Role Status Dates Dr. Linden Chavez DO Primary Care Provider Active Barry Mathew MD Emergency Provider Active Team Status: Inactive Member Role Status Dates Dr. Linden Chavez DO Primary Care Provider Active Dr. Live Ashley MD Emergency Provider Active Team Status: Inactive Member Role Status Dates Dr. Linden Chavez DO Primary Care Provider Active Dr. Live Ashley MD Attending Provider, Emergency Provider Active Team Status: Inactive Member Role Status Dates Dr. Linden Chavez DO Primary Care Provider Active Barry Mathew MD Attending Provider, Emergency Provid er Active Team Status: Inactive Member Role Status Dates Dr. Linden Chavez DO Primary Care Provider Active Dr. Keenan Wu DO Emergency Provider Active Team Status: Inactive Member Role Status Dates Dr. Linden Chavez DO Primary Care Provider Active Dr. Keenan Wu DO Attending Provider, Emergency Provider Active Team Status: Inactive Member Role Status Dates Dr. Linden Chavez DO Primary Care Provider Active Dr. Buster Pereyra DO Emergency Provider Active Team Status: Inactive Member Role Status Dates Dr. Linden Chavez DO Primary Care Provider Active Dr. Buster Pereyra DO Attending Provider, Emergency P cyn Active Team Status: Inactive Member Role Status Dates Dr. Linden Chavez DO Primary Care Provider Active Dr. Johann Lemons DO Emergency Provider Active Team Status: Active Member Role Status Dates No Primary Care Physician Primary Care Provider Active Team Status: Inactive Member Role Status Dates Dr. Linden Chavez DO Primary Care Provider Active Start: October 19, 2024 End: October 19, 2024 Dr. Live Ashley MD Attending Provider Active Start: October 19, 2024 End: October 19, 2024 Dr. Live Ashley MD Emergency Provider Active Start: October 19, 2024 End: October 19, 2024 Team Status: Inactive Member Role Status Dates Dr. Linden Chavez DO Primary Care Provider Active Start: October 29, 2024 End: October 30, 2024 Dr. Johann Lemons DO Attending Provider Active Start: October 29, 2024 End: October 30, 2024 Dr. Johann Lemons DO Emergency Provider Active Start: October 29, 2024 End: October 30, 2024 Team Status: Inactive Member Role Status Dates Dr. Pedro Krishnan DO Attending Provider Active Start: November 27, 2024 End: November 27, 2024 Dr. Pedro Krishnan DO Emergency Provider Active Start: November 27, 2024 End: November 27, 2024 No Primary Care Physician Primary Care Provider Active Start: November 27, 2024 End: November 27, 2024 Team Status: Inactive Member Role Status Dates No Primary Care Physician Primary Care Provider Active Start: December 08, 2024 End: December 08, 2024 Barry Mathew MD Attending Provider Active Star t: December 08, 2024 End: December 08, 2024 Barry Mathew MD Emergency Provider Active Star t: December 08, 2024 End: December 08, 2024 Team Status: Inactive Member Role Status Dates No Primary Care Physician Primary Care Provider Active Start: December 20, 2024 End: December 20, 2024 Dr. Avni Cash MD Attending Provider Active S tart: December 20, 2024 End: December 20, 2024 Dr. Avni Cash MD Emergency Provider Active S tart: December 20, 2024 End: December 20, 2024 Team Status: Inactive Member Role Status Dates No Primary Care Physician Primary Care Provider Active Start: December 26, 2024 End: December 27, 2024 Dr. Panchito Castillo DO Attending Provider Active Start : December 26, 2024 End: December 27, 2024 Dr. Panchito Castillo DO Emergency Provider Active Start : December 26, 2024 End: December 27, 2024 Team Status: Inactive Member Role Status Dates No Primary Care Physician Primary Care Provider Active Start: February 16, 2025 End: February 16, 2025 Dr. Johann Lemons DO Emergency Provider Active Start: February 16, 2025 End: February 16, 2025 Team Status: Inactive Member Role Status Dates No Primary Care Physician Primary Care Provider Active Start: February 16, 2025 End: February 16, 2025 Dr. Johann Lemons DO Attending Provider Active Start: February 16, 2025 End: February 16, 2025 Dr. Johann Lemons DO Emergency Provider Active Start: February 16, 2025 End: February 16, 2025 Team Status: Inactive Member Role Status Dates No Primary Care Physician Primary Care Provider Active Start: March 26, 2025 End: March 26, 2025 Dr. Buster Pereyra DO Emergency Provider Active Start: March 26, 2025 End: March 26, 2025 Source Comments (unrecognize d section and content) In the event this informatio n is protected by the Federal Confidentiality of Alcohol and Drug Abuse Patient Records regulations: The Federal rules restrict any use of the information to criminally investigate or prosecute any alcohol or drug abuse patient.[facility] the event this information is protected by the Federal Confidentiality of Alcohol and Drug Abuse Patient Records regulations: The Federal rules restrict any use of the information to criminally investigate or prosecute any alcohol or drug abuse patient.[facility] the event this information is protected by the Federal Confidentiality of Alcohol and Drug Abuse Patient Records regulations: The Federal rules restrict any use of the information to criminally investigate or prosecute any alcohol or drug abuse patient.[facility] Reason for Visit (unrecogniz ed section and content) Reason Comments Ear Problem Bilat ears clogged x 3 weeks Reason Comments Ear Problem Bilat ears compacted ,trouble hearing x1 day Reason Comments Ear Problem Bilateral clogged x1 day FOR RECORDS PERTAINING TO PATIENTS WHO ARE [...] BE BASED ON THE PRIMARY CLINICAL RECORDS. [facility] [employer] provides no warranty or guarantee of the accuracy or completeness of information in this document.
[2025-04-21 11:50] VITALS: BP 139/76; PULSE 78; RESP 14; O2SAT 98
[2025-04-21 13:00] VITALS: BP 141/66; PULSE 64; RESP 14; TEMP 36.2; O2SAT 99
== END 2025-04-21 13:17 | disposition home or self-care (01) ==
PROVIDERS: Emergency Provider Emergency Medicine; Visit Provider Emergency Medicine
DX: S80.02XA Contusion of left knee, initial encounter (principal); J44.9 Chronic obstructive pulmonary disease, unspecified; E11.40 Type 2 diabetes mellitus with diabetic neuropathy, unspecified; I25.10 Atherosclerotic heart disease of native coronary artery without angina pectoris; I10 Essential (primary) hypertension; E78.5 Hyperlipidemia, unspecified; S80.212A Abrasion, left knee, initial encounter; I25.2 Old myocardial infarction; W19.XXXA Unspecified fall, initial encounter
CPT/HCPCS: 73564; 99282

== ENCOUNTER → 2025-04-23 | Outpatient (CLI) | payer OTHER, MEDICAID, SELFPAY ==
[2025-04-23 18:05] LABS: Erythrocyte Sedimentation Rate 12 mm/hr (0-20)
[2025-04-23 18:11] LABS: Hemoglobin A1c 11.6 % (<=5.6)
[2025-04-23 18:36] LABS: AST(SGOT) 11 U/L (<=37); Alanine Aminotransfer ALT/SGPT 8 U/L (<=46); Albumin, Serum 3.9 g/dL (3.4-4.8); Alkaline Phosphatase 102 U/L (40-129); Bilirubin, Direct 0.16 mg/dL (0.00-0.30); Cholesterol 171 mg/dL (<=200); Hepatitis C Antibody Nonreactive (Nonreactive); High Density Lipoprotein 34 mg/dL; Low Density Lipoprotein Calc. 100 mg/dL; PSA,Total - Annual Screen 0.35 ng/mL (0.02-4.00); Protein, Total 6.9 g/dL (5.9-8.4); Triglycerides 187 mg/dL; Very Low Density Lipoprotein 37 mg/dL (5-40); cholesterol:hdl ratio screen 5.04
[2025-04-25 16:10] LABS: Endomysial Antibody IgA Negative (Negative); Immunoglobulin A 364 mg/dL (61-437); t-Transglutaminase IgA <2 U/mL (0-3)
== END | disposition home or self-care (01) ==
LOC: BFHLAB 14:56
PROVIDERS: PCP Family Medicine; Visit Provider Family Medicine
DX: E11.65 Type 2 diabetes mellitus with hyperglycemia (principal); I25.10 Atherosclerotic heart disease of native coronary artery without angina pectoris; E03.9 Hypothyroidism, unspecified; R82.90 Unspecified abnormal findings in urine; R53.83 Other fatigue; K52.9 Noninfective gastroenteritis and colitis, unspecified; Z12.5 Encounter for screening for malignant neoplasm of prostate; Z11.59 Encounter for screening for other viral diseases; Z91.89 Other specified personal risk factors, not elsewhere classified
CPT/HCPCS: 36415; 80061; 80076; 82784; 83036; 83516; 84153; 84443; 85652; 86140; 86255; 86803; G0103

== ENCOUNTER → 2025-04-26 | Outpatient (CLI) | payer OTHER, SELFPAY ==
[2025-04-26 17:29] LABS: Color, Urine Yellow (Yellow); Glucose, Dipstick 1000 mg/dl (Normal); Ketone-Dipstick Negative (Negative); Leukocyte Esterase-Dipstick 500 /ul (Negative); Nitrite-Dipstick Negative (Negative); Occult Blood-Urine 150 /ul (Negative); Protein-Dipstick 100 mg/dl (Negative); Urine Bilirubin Dipstick Negative (Negative); Urine Clarity Cloudy (Clear); Urine Urobilinogen Normal (Normal)
[2025-04-26 18:00] LABS: Microalbumin:Creatinine Ratio 564.7 mg/g CRE
== END | disposition home or self-care (01) ==
LOC: LABSPEC 13:14
PROVIDERS: PCP Family Medicine; Visit Provider Family Medicine
DX: E11.65 Type 2 diabetes mellitus with hyperglycemia (principal); I25.10 Atherosclerotic heart disease of native coronary artery without angina pectoris; E03.9 Hypothyroidism, unspecified; Z12.5 Encounter for screening for malignant neoplasm of prostate; R82.90 Unspecified abnormal findings in urine; Z11.59 Encounter for screening for other viral diseases; Z91.89 Other specified personal risk factors, not elsewhere classified; R53.83 Other fatigue; K52.9 Noninfective gastroenteritis and colitis, unspecified
CPT/HCPCS: 81002; 82043; 82570

== ENCOUNTER 2025-05-03 11:27 | Emergency (ER) | payer OTHER, SELFPAY ==
[2025-05-03 11:28] VITALS: BP 100/69; PULSE 78; RESP 14; TEMP 36.6; O2SAT 98
[2025-05-03 11:30] VITALS: BMI 25.2
--- NOTE | 2025-05-03 12:06 | EX.ED.DYSGE1 ---
HPI History of Present Illness Chief Complaint: Diarrhea Narrative Narrative: 65-year-old male with PMH of CAD, DM2, noncompliant with medications presents with weakness. He states he was outside in the heat fishing for about an hour and fall on the way home started to feel generalized weakness. He had 2 episodes of loose stools this morning but states it is more of a chronic issue. No melena hematochezia. He denies chest pain, shortness of breath, nausea or vomiting, palpitations or syncope. He states he has been out of his medications for 2 years including metformin and insulin for his diabetes. He just established with Dr. Chavez as a new patient and was prescribed medication for the diarrhea but nothing for diabetes. He states, I forgot to tell him I am diabetic. He has another appointment with him on 05/24. 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 Esophageal candidiasis Current use of insulin Back pain due to injury Restless legs Injury of head and neck COPD (chronic obstructive pulmonary disease) High cholesterol History of stress test Depression Chronic pain Non-smoker Sleep apnea Diabetes Hyperlipidemia Hypertension Myocardial infarct Home Medications ?Medication ?Instructions ?Recorded ?Last Taken ?Type metformin 500 mg tablet,extended 500 mg PO BID diabetes 05/02/19 03/18/22 History release 24 hr glipizide 5 mg tablet 5 mg PO BID diabetes 03/19/22 03/18/22 History insulin glargine 100 unit/mL (3 10 unit subcut BID diabetes 03/19/22 03/18/22 History mL) subcutaneous pen (Lantus Solostar U-100 Insulin) hydrocortisone 1 % topical cream 1 applic topical TID PRN skin 08/26/23 Unknown Rx irritation #28.4 grams ibuprofen 600 mg tablet 600 mg PO Q8H PRN PRN pain #20 08/26/23 Unknown Rx TABLETS insulin glargine 100 unit/mL 1 unit subcut QPM 09/29/23 Unknown History subcutaneous solution (Lantus U-100 Insulin) levothyroxine 100 mcg tablet 100 mcg PO DAILY 09/29/23 Unknown History cyclobenzaprine 10 mg tablet 10 mg PO TID PRN Muscle Spasm #15 08/10/24 Unknown Rx TABLETS aspirin 81 mg tablet,delayed 81 mg PO DAILY 02/16/25 Unknown History release (Adult Aspirin Regimen) doxycycline hyclate 100 mg capsule 100 mg PO BID 7 days #14 caps 02/16/25 Unknown Rx gabapentin 100 mg capsule 100 mg PO TID #90 caps 04/21/25 Unknown Rx metformin 500 mg tablet 500 mg PO BID 30 days #60 tabs 05/03/25 Unknown Rx sulfamethoxazole 800 1 tab PO BID 7 days #14 tabs 05/03/25 Unknown Rx mg-trimethoprim 160 mg tablet (Bactrim DS) Allergy/AdvReac Type Severity Reaction Status Date / Time diphenhydramine HCl (From Allergy Rash Verified 05/03/25 11:28 Benadryl) Penicillins Allergy Rash Verified 05/03/25 11:28 venom-honey bee (bee venom Allergy Swelling Verified 05/03/25 11:28 (honey bee)) Surgical History H/O hernia repair Hx of left knee surgery Hx of inguinal herniorrhaphy History of coronary artery stent placement Social History household members: none Smoking Status: Never smoker substance use type: does not use ROS ROS ED ROS Narrative Constitutional: Negative for fever, chills. CVS: Negative for palpitations, chest pain, syncope. Respiratory: Negative for shortness of breath, cough. GI: Negative for abdominal pain, nausea, vomiting, melena, hematochezia. : Negative for dysuria. EXAM Physical Exam Narrative Exam Narrative: CONST: Patient sitting in no acute distress. EYES: Normal inspection. ENT: Normal inspection, dry mucous membranes. NECK: Normal inspection. RESP: No respiratory distress, CTAB. CVS: Regular rate and rhythm, no murmur, no gallop. ABD: Soft and nontender, no guarding or rebound, nondistended. SKIN: Color normal, noninfected appearing scabs across his chest back and arms from picking at his skin. EXTREMITIES: Normal appearance, no pedal edema. NEURO: Alert and answering questions appropriately. Follows commands, moving all extremities. PSYCH: Normal affect. Const Vital Signs: 05/03/25 11:28 05/03/25 12:24 05/03/25 13:28 Temperature 98 F 97.4 F L Temperature Source Temporal Oral Pulse Rate 78 78 Pulse Rate [Lying] 75 Pulse Rate [Sitting (for 1 minute prior to obtaining)] 75 Respiratory Rate 14 15 Blood Pressure 100/69 105/69 Blood Pressure [Lying] 114/74 Blood Pressure [Sitting (for 1 minute prior to obtaining)] 99/72 Blood Pressure Mean 79 81 Blood Pressure Mean [Lying] 87 Blood Pressure Mean [Sitting (for 1 minute prior to obtaining)] 81 Pulse Ox 98 98 Oxygen Delivery Method Room Air Room Air 05/03/25 13:35 Temperature Temperature Source Pulse Rate 58 L Pulse Rate [Lying] Pulse Rate [Sitting (for 1 minute prior to obtaining)] Respiratory Rate 16 Blood Pressure 105/69 Blood Pressure [Lying] Blood Pressure [Sitting (for 1 minute prior to obtaining)] Blood Pressure Mean 81 Blood Pressure Mean [Lying] Blood Pressure Mean [Sitting (for 1 minute prior to obtaining)] Pulse Ox 98 Oxygen Delivery Method Room Air MDM MDM MDM Narrative Medical decision making narrative: Differential includes but not limited to: Electrolyte derangement, acute kidney injury, hyperglycemia, DKA 65-year-old male was outdoors in the heat and developed generalized weakness. He did not have much p.o. intake. He states he had 2 episodes of diarrhea this morning but that is more of a chronic ongoing issue. He appears well and nontoxic. BP is 100/69, otherwise normal vital signs. He is dry mucous membranes. Normal cardiopulmonary exam. Abdomen soft and nontender. No focal neurologic deficits. He was given IV fluids while blood work was obtained. CBC is unremarkable. Electrolytes are normal. BUN 23, creatinine 0.89. Glucose is 215 with normal CO2 and gap ruling out DKA. Urinalysis has pyuria. He has had several urine cultures this year that grew pansensitive Staph aureus. I sent the UA for culture and prescribed Bactrim. He feels better after the IV fluids and is able to walk down the hallway and remained asymptomatic. I recommended increased hydration, prescribe Bactrim for the UTI, and refilled his metformin. He has an appointment with Dr. Chavez later this month and he can further evaluate and treat his diabetes. Patient was comfortable with this plan and discharged in stable condition. History & Record Review Discussion w/independent historian: Patient Additional record(s) reviewed:: Prior ED visit and Prior labs Lab Data Attestation: I reviewed the patient's lab results. Labs: Laboratory Results - last 24 hr 05/03/25 05/03/25 05/03/25 12:10 12:18 13:53 WBC 9.6 RBC 4.89 Hgb 14.0 Hct 39.5 L MCV 80.8 MCH 28.6 MCHC 35.4 RDW Std Deviation 39.5 RDW Coeff of Manjinder 13.6 Plt Count 251 MPV 8.9 Immature Gran % (Auto) 0.300 Neut % (Auto) 75.1 H Lymph % (Auto) 15.1 L Rowan % (Auto) 6.8 Eos % (Auto) 2.1 Baso % (Auto) 0.6 Absolute Neuts (auto) 7.2 Absolute Lymphs (auto) 1.45 Nucleated RBC % 0 Sodium 136 Potassium 4.4 Chloride 101 Carbon Dioxide 23.1 Anion Gap 12 BUN 23 H Creatinine 0.89 Estim Creat Clear Calc 104.28 Est GFR (MDRD) Non-Af 95 BUN/Creatinine Ratio 25.5 H Glucose 215 H Calcium 9.5 Total Bilirubin 0.34 AST 14 ALT 8 Alkaline Phosphatase 112 Total Protein 7.3 Albumin 4.2 Globulin 3.1 Albumin/Globulin Ratio 1.3 Urine Color Yellow Urine Clarity Cloudy Urine pH 6.0 Ur Specific [place] 1.010 Urine Protein 30 H Urine Glucose (UA) 250 H Urine Ketones Negative Urine Occult Blood 50 H Urine Nitrite Negative Urine Bilirubin Negative Urine Urobilinogen Normal Ur Leukocyte Esterase 500 H Urine RBC 0 SEEN Urine WBC >100 SEEN Ur Squamous Epith Cells 0 SEEN Urine Bacteria 0 SEEN Urine Mucus 0 SEEN POC Glucose 226 H EKG Initial EKG: Attestation: I personally reviewed and interpreted this EKG as follows: Interpretation: Sinus Rhythm and No Acute Injury Pattern Comments: Normal sinus rhythm at 79 bpm Left axis deviation No STEMI Prior: Unchanged Discharge Plan Triage Chief Complaint: Diarrhea ED Midlevel Provider: Cinthia Wilson ED Provider: Pedro Krishnan Dx/Rx/DC Orders Clinical Impression: Generalized weakness, History of diabetes mellitus, Dehydration, Pyuria Instructions: Dehydration, Diabetes- Hot Weather Safety Prescriptions: New sulfamethoxazole-trimethoprim [Bactrim DS] 800-160 mg tablet 1 tab PO BID 7 Days Qty: 14 0RF metformin 500 mg tablet 500 mg PO BID 30 Days Qty: 60 0RF No Action metformin 500 MG tablet 500 mg PO BID Patient Comments: diabetes insulin glargine [Lantus Solostar U-100 Insulin] 100 unit/mL (3 mL) Insulin Pen 10 unit SUBCUT BID glipizide 5 mg tablet 5 mg PO BID Rx Instructions: Hold if glucose less than 130 mg/dl ibuprofen 600 mg tablet 600 mg PO Q8H PRN PRN (Reason: pain) Qty: 20 0RF hydrocortisone 1 % cream 1 applic topical TID PRN (Reason: skin irritation) Qty: 28.4 0RF levothyroxine 100 mcg tablet 100 mcg PO DAILY Patient Comments: Take 1 tab by mouth once daily on an empty stomach insulin glargine [Lantus U-100 Insulin] 100 unit/mL solution 1 unit subcut QPM cyclobenzaprine 10 mg tablet 10 mg PO TID PRN (Reason: Muscle Spasm) Qty: 15 0RF aspirin [Adult Aspirin Regimen] 81 mg tablet,delayed release (DR/EC) 81 mg PO DAILY doxycycline hyclate 100 mg capsule 100 mg PO BID 7 Days Qty: 14 0RF gabapentin 100 mg capsule 100 mg PO TID Qty: 90 0RF Primary Care Provider: Linden Chavez Referrals: Linden Chavez, [Primary Care Provider] - Activity Restrictions/Additional Instructions: Drink plenty of fluids. I prescribed metformin to start taking even twice daily. Follow-up with your primary care doctor to have your sugars monitored and see if you need insulin prescribed. You also have a urinary tract infection. You have had these multiple times in the past likely because your blood sugars are running high. Take all of the antibiotics as prescribed. Print Language: Bengali Disposition Disposition: Home, Self Care
[2025-05-03] MEDS: 0.9% Normal Saline (1000mL) 1,000 ML 999 ML IV (12:14)
[2025-05-03 12:22] LABS: Hematocrit 39.5 % (40-54); Hemoglobin 14.0 g/dL (13.0-16.5); Immature Granulocytes Count 0.030 X10^3/uL (0.0-0.0); Mean Corp Hgb Conc 35.4 g/dL (32-36); Mean Corpuscular Volume 80.8 fL (80-94); Mean Platelet Vol. 8.9 fl (6.2-12.0); NRBC Flagged by Analyzer 0 % (0-5); Platelet Count 251 K/mm3 (150-450); RBC Distribution Width CV 13.6 % (11.6-14.6); RBC Distribution Width SD 39.5 fl (35.1-43.9); Red Blood Count 4.89 M/mm3 (4.6-6.2); White Blood Count 9.6 K/mm3 (4.4-11.0)
[2025-05-03 12:24] VITALS: BP 114/74; BP 99/72; PULSE 75
--- NOTE | 2025-05-03 12:25 | EKG12_ITS ---
Test Reason : WEAKNESS Blood Pressure : */* mmHG Vent. Rate : 79 BPM Atrial Rate : 79 BPM P-R Int : 194 ms QRS Dur : 86 ms QT Int : 396 ms P-R-T Axes : 53 -44 23 degrees QTcB Int : 454 ms Normal sinus rhythm Left axis deviation Abnormal ECG Confirmed by TESSA TRACY, MENDY ([id number]), sound editor JADEN HERNANDEZ ([id number]) on 05/06/2025 10:30:28 AM Referred By: Confirmed By: MENDY ZARATE MD
--- NOTE | 2025-05-03 12:25 | EKG12_ITS ---
Test Reason : WEAKNESS Blood Pressure : */* mmHG Vent. Rate : 79 BPM Atrial Rate : 79 BPM P-R Int : 194 ms QRS Dur : 86 ms QT Int : 396 ms P-R-T Axes : 53 -44 23 degrees QTcB Int : 454 ms Normal sinus rhythm Left axis deviation Abnormal ECG Confirmed by TESSA TRACY, MENDY ([id number]), subeditor JADEN HERNANDEZ ([id number]) on 05/06/2025 10:30:28 AM Referred By: Confirmed By: MENDY ZARATE MD
--- OUTSIDE RECORDS SUMMARY | 2025-05-03 12:44 | XMS RPT_ITS | CCD ---
Author Organization [facility] Care Team Providers Care Narcotics Agent Name Role Phone Unavailable Primary Care [...] Provider Anna SUMMERS, Dr. Flanagan Emergency Provider Dr. Pedro Krishnan DO Attending Provider Ariella SUMMERS, Dr. Vasquez Emergency Provider Care Physician, No Primary Primary Care Provider Unavailable Barry Mathew MD Attending Provider Barry Mathew MD Emergency Provider Shailesh TRACY, Dr. Holly Attending Provider Dr. Avni Cash MD Emergency Provider Dr. Panchito Castillo DO Attending Provider Dr. Panchito Castillo DO Emergency Provider AndDr. Johann schreiber DO Attending Provider Dr. Johann Lemons DO Emergency Provider Dr. Buster Pereyra DO Emergency Provider Care Physician, No Primary Primary Care Provider Unavailable Dr. Buster Pereyra DO Attending Provider Dr. Ar Calle MD Emergency Provider Care Physician, No Primary Primary Care Provider Unavailable Dr. Ar Calle MD Attending Provider Dr. Linden Chavez DO Primary Care Provider Dr. Linden Chavez DO Attending Provider Care Physician, No Primary Primary Care Unava ilable Pedro Krishnan Attending Unavailable Care Physician, No Primary Primary Care Unava ilable Barry Mathew Attending Unavailable Care Physician, No Primary Primary Care Unava ilable Avni Cash Attending Unavailable Care Physician, No Primary Primary Care Unava ilable Panchito Castillo Attending Unavailable Johann Lemons Attending Unavailable Care Physician, No Primary Primary Care Unava ilable Scott, Linden Primary Care Unavailable Scott, Linden Attending Unavailable Scott, Linden Primary Care Unavailable Scott, Linden Attending Unavailable Care Physician, No Primary Primary Care Unava ilable Buster Pereyra Attending Unavailable Care Physician, No Primary Primary Care Unava ilable Calle, Ar Attending Unavailable AndJohann schreiber Attending Unavailable Scott, Linden Primary Care Unavailable Shania Disla Attending Unavailable Scott, Linden Primary Care Unavailable AndJohann schreiber Attending Unavailable Scott, Linden Primary Care Unavailable Adam Allen Attending Unavailable Scott, Linden Primary Care Unavailable Live Ashley Attending Unavailable Scott, Linden Primary Care Unavailable Scott, Linden Primary Care Unavailable Johann Lemons Attending Unavailable Allergies Allergy Classification Reported Allergen(s) Allergy Type Date of Onset Reaction(s) Facility (20 sources) bee venom Propensity to adverse reactions to drug 9 [place], [place] (2 sources) diphenhydrAMINE; Translations: [DIPHENHYDRAMINE] Drug Allergy 1 [place], [place] (8 sources) Penicillins; Translations: [PENICILLINS] Propensity to adverse reactions to drug 1 [place], [place] (20 sources) diphenhydrAMINE; Translations: [diphenhydramine HCl] Drug Allergy 2 [facility] (20 sources) Penicillins Allergy to substance 2 [facility] (3 sources) diphenhydrAMINE Drug Allergy 1 [facility] Work Phone: (3 sources) Penicillins Drug Allergy 1 [facility] Work Phone: (4 sources) Bee Sting; Translations: [BEE STING] Allergy to substance 1 [facility] Work Phone: (1 source) Penicillins Drug allergy (disorder) 5 [facility] (1 source) venom-honey bee Drug allergy (disorder) 5 [facility] Medications Current Medications Medication Drug Class(es) Dates Sig (Normalized) Sig (Original) [id number] 200 actuat albuterol 0.09 mg/actuat metered dose inhaler (3 sources) beta2-Adrenergic Agonist Start: 01-08-2020 take 2 puff(s) by inhalation every four hours as needed albuterol HFA (VENTOLIN HFA) 90 mcg/actuation inhaler Indications: Chronic obstructive pulmonary disease, unspecified COPD type ([facility]) Inhale 2 Puffs as instructed every 4 [...] (4 sources) HMG-CoA Reductase Inhibitor Start: 01-31-20 21 take 1 tablet by mouth once daily [...] suppository (1 source) Stimulant Laxative Start: 10-05-20 19 bisacodyl (DULCOLAX) suppository 10 mg cetirizine hydrochloride [...] tablet (20 sources) Muscle Relaxant Start: 08-26-20 End: 08-10-20 take 1 tablet by mouth three times [...] A DAY as needed for Muscle Spasm 20 0 June 22, 2016 12:00am November 14, 2016 10:55am doxycycline hyclate 100 mg oral capsule (20 sources) Tetracycline-class Drug Start: 02-16-2025 take 1 capsule by mouth twice daily Doxycycline Hyclate 100 mg capsule Active 100 mg PO TWICE A DAY 14 7 0 February 16, 2025 12:00am Start: 10-27-2018 End: 11-06-2018 take 1 capsule by mouth twice daily Doxycycline Hyclate 100 MG capsule Discontinued 100 mg PO TWICE A DAY 20 10 0 October 27, 2018 1:00am November 05, 2018 [...] tablet by tom th once daily. Take 1 tablet once daily [...] Indications: Eustachian tube dysfunction, bilateral Use 1 [place] in each nostril once daily. 9.9 mL 12/14/2024 Active gabapentin 100 mg oral capsule (6 sources) Anti-epileptic Agent Start: 04-21-20 take 1 capsule by mouth three times daily Gabapentin 100 mg capsule Active 100 mg PO THREE TIMES A DAY 90 0 April 21, 2025 12:00am Start: 11-12-2019 take 1 capsule by [facility] once daily at bedtime gabapentin (NEURONTIN) 300 mg capsule Indications: Lumbar radiculopathy Take 1 capsule by mouth daily at bedtime for 30 days. 30 capsule 11/12/2019 Active Comment on above: Take 1 capsule by [facility] daily at bedtime for 30 days. glucagon (rdna) 1 mg injection (1 source) Antihypoglycemic Agent Start: 10-05-2019 glucagon (rDNA) injection 1 mg 150 ml glucose 50 mg/ml injection (3 sources) Start: 10-05-2019 glucose (GLUTOSE) 40 % oral gel 15 g Start: 10-05-2019 dextrose 50 % IV solution Start: 10-05-2019 dextrose 5 % s olution hydrocortisone 10 mg/ml topical cream (17 sources) Corticosteroid Start: 08-26-2023 Hydrocortisone 1 % cream Active 1 NMA TOPICAL THREE TIMES A DAY as needed for skin irritation 28.4 0 August 26, 2023 12:00am ibuprofen 600 mg oral tablet (20 sources) Nonsteroidal Anti-inflammatory Drug Start: 05-12-2023 End: 09-29-2023 take 1 tablet by mouth every eight hours as needed for pain Ibuprofen 600 mg tablet Active 600 mg PO EVERY 8 HOURS NEEDED as needed for pain 20 0 August 26, 2023 12:00am 3 ml insulin glargine 100 unt/ml pen injector (20 sources) Insulin Analog Start: 03-19-2022 Insulin Glargine (Lantus Solostar U-100 Insulin) 100 unit/mL (3 mL) Insulin Pen Active 10 U SC TWICE A DAY March 19, 2022 12:00am diabetes Start: 03-19-2022 Start: 04-30-2019 inject 82 [IU] [...] 02, 2019 1:35pm May 12, 2019 10:34am diabetes Start: 03-06-2017 End: 03-07-2017 Insulin Glargine (Lantus Farrah ostar U-100 Insulin) 100 UNITS/ML Pen Discontinued 82 U SC DAILY March 06, 2017 12:56am March 07, 2017 8:35am Start: 12-01-2016 End: 03-06-2017 Insulin Glargine (Lantus Farrah ostar U-100 Insulin) 100 UNITS/ML Pen Discontinued 60 U SC DAILY 0 0 December 01, 2016 12:28pm March 06, [...] solution Discontinued 10 U SC EVERY EVENING 10 February 11th, 2023 1:00am September 29, 2023 9:51pm Start: 12-11-2022 [...] U subcut THREE TIMES DAILY BEFORE MEALS 0 May 12, 2019 12:00am January 03, 2020 [...] insulin levothyroxine sodium 0.1 mg oral tablet (20 sources) l-Thyroxine Start: 09-29-20 23 take 1 [...] Comment on above: Take 1 capsule by [facility] daily before breakfast for 14 days. 1/2 [...] HOURS NEEDED as needed for Pain 12 0 June 22, 2016 12:00am November 14, 2016 10:55am Start: 06-22-2016 End: 11-14-2016 Start: 06-22-2016 End: 11-14-2016 take 1 tablet by mouth every four hours as needed Hydrocodone-Acetaminophen Discontinued 1 - 2 TABLET PO EVERY 4 HOURS NEEDED June 22, 2016 12:00am November 14, 2016 10:55am acetaminophen 325 mg / oxyCODONE hydrochloride 5 mg oral tablet (5 sources) Opioid Agonist Start: 08-10-2024 End: 10-19-2024 Oxycodone-Acetaminophen 5-32 5 mg tablet Discontinued 1 {tbl} PO EVERY 6 HOURS NEEDED as needed for Pain 12 3 0 August 10, 2024 October 19, 2024 5:01am Lumbar radiculopathy Radiculopathy, lumbar region Start: 08-10-2024 End: 10-19-2024 alogliptin 25 mg oral tablet (20 sources) Start: 09-02-2017 End: 05-03-2019 take 1 tablet by mouth once daily Alogliptin 25 MG tablet Discontinued 25 mg PO DAILY May 02, 2019 1:35pm May 03, 2019 8:59am Check with primary doctor atropine sulfate 0.025 mg / diphenoxylate hydrochloride 2.5 mg oral tablet (20 sources) Anticholinergic, Cholinergic Muscarinic Antagonist, Antidiarrheal Start: 10-30-2022 End: 02-16-2025 Diphenoxylate-Atro pine (Lomotil) 2.5-0.025 mg tablet Discontinued 1 {tbl} PO 4 TIMES DAILY NEEDED as needed for diarrhea 20 5 0 October 30, 2022 4:58am February 16, 2025 4:05am Diarrhea Diarrhea, unspecified Start: 10-30-2022 End: 02-16-2025 canagliflozin 100 mg oral tablet (20 sources) Sodium-Glucose Cotransporter 2 Inhibitor Start: 12-12-2014 End: 05-03-2019 take 1 tablet by mouth once daily Canagliflozin (Invokana) 100 MG tablet Discontinued 100 mg PO DAILY December 12, 2014 1:00am May 03, 2019 8:59am Check with primary doctor cefdinir 300 mg oral capsule (5 sources) Cephalosporin Antibacterial Start: 12-27-2024 End: 02-16-2025 take 1 capsule by mouth every twelve hours Cefdinir 300 mg capsule Discontinued 300 mg PO Q12H 14 0 December 27, 2024 1:00am February 16, 2025 4:05am ciprofloxacin 500 mg oral tablet (16 sources) Quinolone Antimicrobial Start: 09-29-2023 End: 05-18-2024 take 1 tablet by mouth twice daily Ciprofloxacin Hcl (Cipro) 500 mg tablet Discontinued 500 mg PO TWICE A DAY 20 0 September 29, 2023 1:00am May 18, 2024 8:10am dicyclomine hydrochloride 20 mg oral tablet (20 sources) Anticholinergic Start: 08-07-2022 End: 02-16-2025 take 1 tablet by mouth three times daily Dicyclomine 20 mg tablet Discontinued 20 mg PO THREE TIMES A DAY 20 0 November 27, 2024 1:00am February 16, 2025 4:05am fluconazole 200 mg oral tablet (20 sources) Azole Antifungal Start: 01-07-2022 End: 08-10-2024 take 1 tablet by mouth once daily Fluconazole (Diflucan) 200 mg tablet Discontinued 200 mg PO DAILY March 19, 2022 11:37pm August 10, 2024 3:38am antibiotic glipiZIDE 5 mg oral tablet (20 sources) Sulfonylurea Start: 01-07-2022 End: 03-19-2022 take 1 tablet by mouth twice daily Glipizide 5 mg tablet Active 5 mg PO TWICE A DAY March 19, 2022 11:37pm diabetes Hold if glucose less than 130 mg/dl Start: 01-07-2022 End: 09-29-2023 take 1 tablet by mouth once daily Glipizide 5 mg tablet Discontinued 5 mg PO DAILY 60 0 December 11, 2022 1:00am September 29, 2023 9:48pm 12 hr guaiFENesin 600 mg extended release oral tablet (20 sources) Start: 12-01-2016 End: 03-07-2017 take 1 tablet by mouth twice daily Guaifenesin (Mucus Relief Er) 600 MG tablet Discontinued 600 mg PO TWICE A DAY 20 0 December 01, 2016 1:00am March 07, 2017 8:34am magnesium citrate 58.2 mg/ml oral solution (13 sources) Start: 12-08-2023 End: 02-16-2025 Magnesium Citrate (Citrate Of Magnesia) solution Discontinued 300 mL PO DAILY as needed for constipation 296 0 December 08, 2023 1:00am February 16, 2025 [...] premix meclizine hydrochloride 25 mg oral tablet (13 sources) Antiemetic Start: 12-08-2023 End: 02-16-2025 take 1 tablet by mouth three times daily Meclizine 25 mg tablet Discontinued 25 mg PO THREE TIMES A DAY 30 0 December 08, 2023 1:00am February 16, 2025 4:06am metFORMIN hydrochloride 500 mg oral tablet (20 sources) Biguanide Start: 12-11-2022 End: 09-29-2023 take 1 tablet by mouth once daily Metformin 500 mg tablet Discontinued 500 mg PO DAILY 60 0 December 11, 2022 1:00am September 29, 2023 9:49pm Start: 01-30-2021 take 4 tablets by mo uth once daily metFORMIN ER (GLUCOPHAGE XR) 500 mg 24 hr tablet Indications: Diabetes mellitus, type II, insulin dependent (HCC) Take 4 tablets by mouth once daily for 14 days. 56 tablet 01/30/2021 Active Start: 12-01-2016 End: 05-02-2019 take 2 tablets by mouth twice daily at mealtime Metformin 500 MG tablet Discontinued 1000 mg PO TWICE DAILY WITH MEALS 0 December 01, 2016 1:00am May 02, 2019 [...] TWICE A DAY May 02, 2019 1:35pm diabetes Start: 11-30-2016 End: 12-01-2016 take 1 tablet by mouth once daily Metformin 500 MG Tab.Er.24h Discontinued 2000 mg PO DAILY November 30, 2016 1:00am December 01, 2016 12:25pm Diabetes take 4 tablets by mo ut once daily at breakfast metFORMIN (GLUCOPHAGE-XR) 500 MG extended release tablet Take 2,000 mg by mouth daily (with breakfast) 0 Active Comment on above: Take 4 tablets by mo uth once daily for 14 days. methylPREDNISolone 4 mg oral tablet (20 sources) Corticosteroid Start: 08-16-20 13 End: 11-11-19 14 Methylprednisolone 4 MG Box Discontinued 4 mg PO DIRECTED August 16, 2013 12:00am November 11, 2013 4:50pm Start: 08-16-2013 End: 11-11-2013 metroNIDAZOLE 500 mg oral tablet (16 sources) Nitroimidazole Antimicrobial Start: 09-29-2023 End: 05-18-2024 take 1 tablet by mouth twice daily Metronidazole 500 mg tablet Discontinued 500 mg PO TWICE A DAY 20 10 0 September 29, 2023 1:00am May 18, 2024 8:11am [...] HOURS as needed for nausea and vomiting 20 November 27, 2024 1:00am February 16, 2025 4:06am Start: 04-26-2022 End: 02-16-2025 take 1 tablet by mouth every eight hours as needed for nausea Ondansetron 4 mg tablet,disintegrating Discontinued 4 mg PO EVERY 8 HOURS NEEDED as needed for Nausea 10 December 25, 2023 1:00am March 08, 2024 6:50am Start: 10-05-2019 ondansetron (Z OFRAN) injection 4 mg permethrin 50 mg/ml topical cream (20 sources) Pyrethroid Start: 05-26-2022 End: 09-29-2023 Permethrin (Elimite) 5 % cream Discontinued 1 NMA TOPICAL Q14D 60 0 May 26, 2022 12:00am September 29, 2023 9:50pm apply second treatment 14 days after first treatment if live lice remain phenazopyridine hydrochloride 200 mg oral tablet (5 sources) Start: 12-27-2024 End: 02-16-2025 take 1 tablet by mouth three times daily Phenazopyridine (Pyridium) 200 mg tablet Discontinued 200 mg PO THREE TIMES A DAY 10 0 December 27, 2024 1:00am February 16, 2025 4:06am polyethylene glycol 3350 48448 mg powder for oral solution (12 sources) Osmotic Laxative Start: 03-08-2024 End: 02-16-2025 [...] mg tablet Discontinued 10 mg PO DAILY 30 0 May 26, 2022 12:00am September 29, 2023 [...] 02, 2019 1:35pm May 12, 2019 10:34am Check with primary doctor With food traMADol hydrochloride 50 mg oral tablet (20 sources) Opioid Agonist Start: 07-03-2022 End: 09-29-2023 take 1 tablet by mouth every four hours as needed for pain Tramadol 50 mg tablet Discontinued 50 mg PO EVERY 4 HOURS NEEDED as needed for Pain 12 2 0 July 03, 2022 12:00am September 29, 2023 9:50pm Acute left-sided low back pain Low back pain, unspecified Problems Active Problems Problem Classification Problem Date Documented Da te Episodic/Chronic Abdominal hernia (20 sources) Hiatal hernia; Translations: [Diaphragmatic hernia without obstruction or gangrene] 10-05-2019 Episodic Acute and unspecified renal failure (20 sources) Injury of kidney; Translations: [Acute kidney failure, unspecified] 05-02-2019 Episodic Alcohol-related disorders (20 sources) History of alcohol abuse; Translations: [Alcohol abuse, in remission] 11-25-2022 Chronic Allergic reactions (17 sources) Inflammatory dermatosis; Translations: [Dermatitis, unspecified] 08-26-2023 [...] unspecified, without bleeding] 10-06-2019 Episodic Gastrointestinal hemorrhage (15 sources) Black feces; Translations: [Melena] 10-01-2023 Episodic Headache; including migraine (20 sources) Headache; Translations: [Headache] 10-17-2019 Episodic Noninfectious gastroenteritis (20 sources) Colitis; Translations: [Noninfective gastroenteritis and colitis, [...] [Diarrhea, unspecified] 03-28-2022 Episodic Other gastrointestinal disorders (18 sources) Constipation; Translations: [Constipation, unspecified] 03-08-2024 Episodic [...] encounter] 05-04-2022 Episodic Other lower respiratory disease (5 sources) History of chronic obstructive airway disease; [...] Translations: [Noncompliance] 12-10-2022 Episodic Residual codes; unclassified (17 sources) Altered mental status; Translations: [Altered mental [...] right front wall of thorax, initial encounter] Onset: 5 05-16-2021 Episodic Syncope (20 sources) Near syncope; Translations: [Syncope and collapse] 12-10-2022 Episodic Thyroid disorders (20 sources) Hypothyroidism; Translations: [Hypothyroidism, unspecified] Onset: 1 05-11-2019 Chronic Unclassified (1 source) Cough, unspecified; Translations: [Cough, unspecified] Onset: 5 Urinary tract infections (5 sources) Acute urinary tract infection; Translations: [Urinary [...] 11-30-2012 Episodic Diseases of mouth; excluding dental (6 sources) Xerostomia; Translations: [Dry mouth, unspecified] Onset: 12-26-2024 12-16-2024 Episodic Fracture of lower limb (2 sources) Fracture of ankle; Translations: [Other fracture of left lower leg, initial encounter for closed fracture] Onset: 10-13-2015 Resolved: 09-16-2017 09-16-2017 Episodic Genitourinary symptoms and ill-defined conditions (11 sources) Increased frequency of urination; Translations: [Frequency of micturition] Onset: 01-10-2025 12-16-2024 Episodic Malaise and fatigue (20 sources) Asthenia; Translations: [Weakness] Onset: 11-20-2024 Episodic Nausea and vomiting (20 sources) Nausea; Translations: [Nausea] Onset: 06-07-2024 05-04-2022 Episodic Other connective tissue disease (3 sources) Foot pain; Translations: [Pain in unspecified foot] Onset: 09-17-2011 09-17-2011 Episodic Unclassified (3 sources) Abrasion, left knee, initial encounter 04-21-2025 Results Test Name Value Interpretation Reference Range Facility Bilirubin Test strip Ql (U)O rdered By: Linden Chavez on 04-26-2025 Bilirubin Ql (U) Negative Negative [facility] Ketones Test strip Ql (U)Ord ered By: Linden Chavez on 04-26-2025 Ketones Ql (U) Negative Negative [facility] Microalb:Creat Ratio,Random URon 04-26-2025 Creatinine [Mass/Vol] 31.70 mg/dL Low 39.00-259.00 [facility] Comment on above: Performed By: #### L 502.0250, L4 #### [facility] [address] [place], [address] MALB:CREAT 564.7 mg/g CRE Normal [facility] Comment on above: Performed By: #### L 502.0250, L4 #### [facility] [address] [place], [address] MICROALBUMIN,UR 179.0 mg/L Normal NO RANGE EST. [facility] Comment on above: Performed By: #### L 502.0250, L4 #### [facility] [address] [place], [address] Nitrite Test strip Ql (U)Ord ered By: Linden Chavez on 04-26-2025 Nitrite Ql (U) Negative Negative [facility] Protein Test strip Ql (U)Ord ered By: Linden Chavez on 04-26-2025 Protein Ql (U) 100 mg/dl High Negative [facility] Random urine creatinine yayo urement (mass/volume)Ordered By: Linden Chavez on 04-26-2025 Creatinine Unsp time (U) [Mass/Vol] 31.70 mg/dL Low 39.00-259.00 [facility] Urinalysis, Routine (Dipstic k)on 04-26-2025 BILIRUBIN URINE Negative Normal Negative [facility] Comment on above: Order Comment: KYRA CLEAN CATCH Performed By: #### L 502.0250, L4 #### [facility] [address] [place], [address] Clarity (U) Cloudy Normal Clear [facility] Comment on above: Order Comment: KYRA CLEAN CATCH Performed By: #### L 502.0250, L4 #### [facility] [address] [place], [address] Color (U) Yellow Normal Yellow [facility] Comment on above: Order Comment: KYRA CLEAN CATCH Performed By: #### L 502.0250, L4 #### [facility] [address] [place], [address] GLUCOSE, UR 1000 mg/dl Abnormal Normal [facility] Comment on above: Order Comment: KYRA CLEAN CATCH Performed By: #### L 502.0250, L4 #### [facility] [address] [place], [address] KETONE UR Negative Normal Negative [facility] Comment on above: Order Comment: KYRA CLEAN CATCH Performed By: #### L 502.0250, L400.2010 #### [facility] [address] [place], [address] LEUK ESTERASE 500 /ul Abnormal Negative [facility] Comment on above: Order Comment: KYRA CLEAN CATCH Performed By: #### L 502.0250, L4 #### [facility] [address] [place], [address] Nitrite Ql (U) Negative Normal Negative [facility] Comment on above: Order Comment: KYRA CLEAN CATCH Performed By: #### L 502.0250, L4 #### [facility] [address] [place], [address] OCCULT BLOOD-UR 150 /ul Abnormal Negative [facility] Comment on above: Order Comment: KYRA CLEAN CATCH Performed By: #### L 502.025, L4 #### [facility] [address] [place], [address] pH UR 7.0 Normal 5.0 - 8.0 [facility] Comment on above: Order Comment: KYRA CLEAN CATCH Performed By: #### L 502.249, L4 #### [facility] [address] [place], [address] PROT DIPSTX 100 mg/dl Abnormal Negative [facility] Comment on above: Order Comment: KYRA CLEAN CATCH Performed By: #### L 502.0250, L400 #### [facility] [address] [place], [address] SP.GR. DIPSTX 1.010 Normal 1.002-1.030 [facility] Comment on above: Order Comment: KYRA CLEAN CATCH Performed By: #### L 502.0250, L4 #### [facility] [address] [place], [place], [address] UROBILI Normal Normal Normal [facility] Comment on above: Order Comment: KYRA CLEAN CATCH Performed By: #### L 502.0250, L400.2010 #### [facility] [address] [place], [place], [address] Urine albumin measurement [facility] detection limit of 20 mg/L or less (mass/volume)Ordered By: Linden Chavez on 04-26-2025 Albumin DL <= 20 mg/L (U) [Mass/Vol] 179.0 mg/L NO RANGE EST. [facility] Urine clarityOrdered By: Noemy Chavez on 04-26-2025 Clarity (U) Cloudy Clear [facility] Urine color determinationOrd ered By: Linden Chavez on 04-26-2025 Color (U) Yellow Yellow [facility] Urine glucose detectionOrder ed By: Linden Chavez on 04-26-2025 Glucose Ql (U) 1000 mg/dl High Normal [facility] Urine leukocyte esterase det ection by dipstickOrdered By: Linden Chavez on 04-26-2025 Leukocyte esterase Test strip Ql (U) 500 /ul High Negative [facility] Urine pHOrdered By: Linden tripathi on 04-26-2025 pH (U) 7.0 [pH] 5.0 - 8.0 [facility] Urine specific gravity measu rementOrdered By: Linden Chavez on 04-26-2025 Specific gravity (U) [Rel density] 1.010 1.002-1.030 [facility] Urine urobilinogen measureme ntOrdered By: Linden Chavez on 04-26-2025 Urobilinogen Ql (U) Normal mg/dl Normal [facility] Celiac Disease Profileon ENDOMYSIAL IGA Negative Normal Negative [facility] Comment on above: Performed By: #### L 501.080 #### [facility] [address] [place], [place], [id number] IMMUNOGLOB A QN 364 mg/dL Normal 61-437 [facility] Comment on above: Result Comment: Perf ormed at: - [facility] [address] [id number] Air Pollution Analyst: Rasheed Denney PhD, Phone: [phone] Performed By: #### L 501.080 #### [facility] [address] [place], [address] tTG IGA <2 Normal 0-3 [facility] Comment on above: Result Comment: Nega tive 0 - 3 Weak Positive 4 - 10 Positive >10 Tissue Transglutaminase (tTG) has been identified as the endomysial antigen. Studies have demonstr- ated that endomysial IgA antibodies have over 99% specificity for gluten sensitive enteropathy. Performed By: #### L 501.080 #### [facility] [address] [place], [address] Bilirubin directOrdered By: Linden Chavez on 04-23-2025 Bilirubin.direct [Mass/Vol] 0.16 mg/dL 0.00-0.30 [facility] Bilirubin, totalOrdered By: Linden Chavez on 04-23-2025 Bilirubin [Mass/Vol] 0.40 mg/dL 0.00-1.30 [facility] CRPon 04-23-2025 C-REACTIVE PROT 15.50 mg/L High 0.0-3.0 [facility] Comment on above: Performed By: #### L 501.080 #### [facility] [address] [place], [address] Calculated very low density lipoprotein (VLDL) cholesterol measurementOrdered By: Linden Chavez on 04-23-2025 Calculated very low density lipoprotein (VLDL) cholesterol measurement 37 mg/dL 5-40 [facility] Erythrocyte Sed Rateon 04-23 SED RATE 12 mm/hr Normal 0-20 [facility] Comment on above: Performed By: #### L 501.080 #### [facility] [address] [place], [address] Erythrocyte sedimentation ra teOrdered By: Linden Chavez on 04-23-2025 ESR (Bld) [Velocity] 12 mm/h 0-20 [facility] Hemoglobin A1con 04-23-2025 HbA1c (Bld) [Mass fraction] 11.6 % High <=5.6 [facility] Comment on above: Result Comment: Norm al < 5.7 % Prediabetic 5.7 - 6.4 % Diabetic >or= 6.5 % Please note range changes. Performed By: #### L 501.080 #### [facility] [address] [place], [place], [id number] Hemoglobin A1c percentageOrd ered By: Linden Chavez on 04-23-2025 HbA1c (Bld) [Mass fraction] 11.6 % High <5.7 [facility] Comment on above: Normal < 5.7 % Predi abetic 5.7 - 6.4 % Diabetic >or= 6.5 % Please note range changes. Hepatitis C Antibodyon 04-23 Hepatitis C Ab Non-Reactive Normal Nonreactive [facility] Comment on above: Result Comment: Reac tive: Presumptive evidence of antibodies to HCV. Follow CDC recommendations for supplemental testing. Non-Reactive: Antibodies to HCV were not detected; does not exclude the possibility of exposure to HCV Reactive Results are presumptive evidence of antibodies to HCV. Follow CDC recommendations for supplemental testing. Order confirmation testing: HCV Quant by PCR testing - HCVPCR #[id number] Non Reactive: < 0.8 Equivocal: >/= 0.8 to < 1.0 Reactive: >/= 1.0 The CDC requires that a reactive/equivocal HCV antibody result be sent out for confirmation. HCV Quant by PCR testing. Performed By: #### L 501.080 #### [facility] [address] [place], [place], [id number] LDL calc ser/plasOrdered By: Linden Chavez on 04-23-2025 Cholesterol in LDL [Mass/Vol] 100 mg/dL [facility] Comment on above: Trduoitfgp=286-269 m g/dL & Higher Efvo=824 mg/dL or greater Laboratory - Chemistry and C hemistry - challengeOrdered By: Linden Chavez on 04-23-2025 AST [Catalytic activity/Vol] 11 U/L <38 [facility] Lipid Profileon 04-23-2025 CHOL:HDL 5.04 Normal [facility] Comment on above: Performed By: #### L 501.080 #### [facility] [address] [place], [address] Cholesterol [Mass/Vol] 171 mg/dL Normal <=200 [facility] Comment on above: Result Comment: Chol esterol level, Desirable <200 mg/dL Borderline high cholesterol 200-239 mg/dL High cholesterol >=240 mg/dL Recommendations of the NCEP Adult Treatment Panel for the following risk-cutoff thresholds for the [place] population. Performed By: #### L 501.080 #### [facility] [address] [place], [address] Cholesterol in HDL [Mass/Vol] 34 mg/dL Low [facility] Comment on above: Result Comment: Adeline onal Cholesterol Education Program (NCEP) guidelines: <40 mg/dL: Low HDL-cholesterol (major risk factor for CHD) >= 60 mg/dL: High HDL-cholesterol (negative risk factor for CHD) HDL-cholesterol is affected by a number of factors, e.g. smoking, exercise, hormones, sex and age. Performed By: #### L 501.080 #### [facility] [address] [place], [address] Cholesterol in LDL [Mass/Vol] 100 mg/dL Normal [facility] Comment on above: Result Comment: Bord ihkqjn=788-574 mg/dL Higher Zvrm=956 mg/dL or greater Performed By: #### L 501.080 #### [facility] [address] [place], [address] Cholesterol in VLDL [Mass/Vol] 37 mg/dL Normal 5-40 [facility] Comment on above: Performed By: #### L 501.080 #### [facility] [address] [place], [address] Triglyceride [Mass/Vol] 187 mg/dL Normal [facility] Comment on above: Result Comment: The drugs N-Acetylcysteine and Metamizole may falsely depress this assay. Normal range: <150 mg/dL Borderline High: 150-199 mg/dL High: 200-499 mg/dL Very High: >500 mg/dL Performed By: #### L 501.080 #### [facility] [address] [place], [address] Liver Profileon 04-23-2025 Albumin [Mass/Vol] 3.9 g/dL Normal 3.4-4.8 [facility] Comment on above: Performed By: #### L 501.080 #### [facility] [address] [place], [address] ALK PHOS 102 U/L Normal 40-129 [facility] Comment on above: Performed By: #### L 501.080 #### [facility] [address] [place], [address] ALT [Catalytic activity/Vol] 8 U/L Normal <=46 [facility] Comment on above: Performed By: #### L 501.080 #### [facility] [address] [place], [address] AST [Catalytic activity/Vol] 11 U/L Normal <=37 [facility] Comment on above: Performed By: #### L 501.080 #### [facility] [address] [place], [address] Bilirubin [Mass/Vol] 0.40 mg/dL Normal 0.00-1.30 [facility] Comment on above: Performed By: #### L 501.080 #### [facility] [address] [place], [address] Bilirubin.direct [Mass/Vol] 0.16 mg/dL Normal 0.00-0.30 [facility] Comment on above: Performed By: #### L 501.080 #### [facility] [address] [place], [place], [address] Globulin (S) [Mass/Vol] 3.0 g/dL Normal 2.2-4.2 [facility] Comment on above: Performed By: #### L 501.080 #### [facility] [address] [place], [place], [id number] T PROT 6.9 g/dL Normal 5.9-8.4 [facility] Comment on above: Performed By: #### L 501.080 #### [facility] [address] [place], [address] PSA,Total - Annual Screenon 04-23-2025 PSA,TOT SCREEN 0.35 ng/mL Normal 0.02-4.00 [facility] Comment on above: Result Comment: This test was performed using the [employer] tPSA method. Measured values of a patient??sample can vary depending on the testing procedure used. PSA values determined on patient samples by different testing procedures cannot be used interchangeably. If there is a change in PSA assays while monitoring therapy, sequential testing should be performed to confirm baseline values. Performed By: #### L 501.080 #### [facility] [address] [place], [place], [id number] Screening total cholesterol/ high density lipoprotein (HDL) cholesterol ratioOrdered By: Linden Chavez on 04-23-2025 Cholesterol.total/Carol sterol in HDL [Mass ratio] 5.04 {ratio} [facility] Serum globulin measurementOr dered By: Linden Chavez on 04-23-2025 Globulin (S) [Mass/Vol] 3.0 g/dL 2.2-4.2 [facility] Serum or plasma C reactive p rotein measurement (mass/volume)Ordered By: Linden Chavez on 04-23-2025 CRP [Mass/Vol] 15.50 mg/L High 0.0-3.0 [facility] Serum or plasma IgA measurem ent (mass/volume)Ordered By: Linden Chavez on 04-23-2025 IgA [Mass/Vol] 364 mg/dL 61-437 [facility] Comment on above: Performed at: - [address] [id number] Director: Rasheed Denney PhD, Phone: [phone] Serum or plasma alanine wagoner otransferase (ALT) measurementOrdered By: Linden Chavez on 04-23-2025 ALT [Catalytic activity/Vol] 8 U/L <47 [facility] Serum or plasma albumin yayo urement (mass/volume)Ordered By: Linden Chavez on 04-23-2025 Albumin [Mass/Vol] 3.9 g/dL 3.4-4.8 [facility] Serum or plasma alkaline andrzej sphatase measurementOrdered By: Lidnen Chavez on 04-23-2025 ALP [Catalytic activity/Vol] 102 U/L 40-129 [facility] Serum or plasma cholesterol in HDL measurement (mass/volume)Ordered By: Linden Chavez on 04-23-2025 Cholesterol in HDL [Mass/Vol] 34 mg/dL Low >40 [facility] Comment on above: National Cholesterol Education Program (NCEP) guidelines:<40 mg/dL: Low HDL-cholesterol (major risk factor for CHD)>= 60 mg/dL: High HDL-cholesterol (negative risk factor for CHD)HDL-cholesterol is affected by a number of factors, e.g. smoking, exercise, hormones, sex and age. Serum or plasma cholesterol measurement (mass/volume)Ordered By: Linden Chavez on 04-23-2025 Cholesterol [Mass/Vol] 171 mg/dL <201 [facility] Comment on above: Cholesterol level, D esirable <200 mg/dLBorderline high cholesterol 200-239 mg/dLHigh cholesterol >=240 mg/dLRecommendations of the NCEP Adult Treatment Panel for the following risk-cutoff thresholds for the [place] population. Serum tissue transglutaminas e (tTG) IgA antibody assay (units/volume)Ordered By: Linden Chavez on 04-23-2025 tTG IgA Qn (S) <2 U/mL 0-3 [facility] Comment on above: Negative 0 - 3 Weak Positive 4 - 10 Positive >10 Tissue Transglutaminase (tTG) has been identified as the endomysial antigen. Studies have demonstr- ated that endomysial IgA antibodies have over 99% specificity for gluten sensitive enteropathy. TSH DL <= 0.005 mIU/L QnOrde red By: Linden Chavez on 04-23-2025 TSH Qn 13.600 uIU/mL High 0.300-4.200 [facility] Thyroid Stim Hormone (TSH)on 04-23-2025 TSH 13.600 uIU/mL High 0.300-4.200 [facility] Comment on above: Performed By: #### L 501.080 #### [facility] [address] [place], [address] Total proteinOrdered By: Noemy Chavez on 04-23-2025 Protein [Mass/Vol] 6.9 g/dL 5.9-8.4 [facility] Triglycerides measurementOrd ered By: Linden Chavez on 04-23-2025 Triglyceride [Mass/Vol] 187 mg/dL <199 [facility] Comment on above: The drugs N-Acetylcy steine and Metamizole may falsely depress this assay. Normal range: <150 mg/dLBorderline High: 150-199 mg/dLHigh: 200-499 mg/dLVery High: >500 mg/dL Emergency Department Summary on 04-21-2025 Emergency Department Summary [facility] Medical Records Department [address] [place] [address] Emergency Department Summary 04/21/25 MR#: [id number] Acct: [id number] Name: JERALD YODER Rep #: [id number] : 1960 65 From: Ar Calle MD PCP: Care Physician,No Primary Status:REG ER Location: ED HPI History of Present Illness Chief Complaint: Fall Detail of Chief Complaint: Mechanical fall complains of knee giving out since fall Informant: patient Onset/Context/Timing Onset: Hours (Less than 1 hour ago) Mechanism/Context: Blunt Injury and Fall Location of pain/injuries: Left knee Location: Left knee suffer traumatic injury. He complains of pain left knee and unus Current Severity: Mild Maximum Severity: Mild Worsened by: Nothing specific Relieved by: Nothing Associated Symptoms Associated Symptoms: Negative for Parasthesias, Weakness, Loss of function, Inability to ambulate, Loss of consciousness or Amnesia Narrative Narrative: Patient is a 65-year-old male with multiple medical problems which includes alcohol abuse, pancreatitis, type 2 diabetes, hyperosmolar nonketotic coma, hypothyroidism, essential hypertension and coronary disease. He was walking fell and sustained an abrasion and trauma to the anterior left knee. He states it is not painful just feels weird and his knee gives out. He has never been diagnosed with diabetic neuropathy. He does endorse symptoms consistent with claudication and has a short-distance claudication. Patient denies head injury. Patient denies neck pain. Patient denies paresthesia, anesthesia or motor weakness upper extremity. He states he has had abnormal sensation of his feet for some time as well as legs. He denies chest pain, tightness or pressure. He denies shortness of breath. He denies black or maroon-colored stool. Prior similar symptoms: No Recent Illness/Hospitalization : No PFSH PFSH Medical [...] BID 7 days #14 caps Unknown Rx gabapentin 100 mg capsule 100 mg PO TID #90 caps 04/21/25 Un known Rx Allergy/AdvReac Type Severity Reaction Status Date / Time diphenhydramine HCl (From Allergy Rash Verified 04/21/25 10:51 Benadryl) Penicillins Allergy Rash Verified 04/21/25 10:51 venom-honey bee (bee venom Allergy Swelling Verified 04/21/25 10:51 (honey bee)) Surgical History H/O hernia repair Hx of left knee surgery Hx of inguinal herniorrhaphy History of coronary artery stent placement Social History household members: none Smoking Status: Never smoker substance use type: does not use ROS ROS ED Musculoskeletal Musculoskeletal: Denies arthralgias, back pain, myalgias or neck pain Integumentary Denies rash Neurologic Neurologic: Reports paresthesias RLE and LLE and weakness Hematologic/Lymphatic Hematologic/Lymphatic: Denies easy bleeding or easy bruising EXAM Physical Exam Const Vital Signs: 04/21/25 10:50 04/21/25 10:51 04/21/25 11:50 Temperature 97.7 F L Temperature Source Oral Pulse Rate 80 78 Respiratory Rate 16 14 Respiratory Effort Normal Respiratory Depth Normal Respiratory Pattern Normal Blood Pressure 134/78 H 139/76 H Blood Pressure Mean 96 9 (more content not included)... Normal [facility] Knee 4 or More Viewson 04-21 Knee 4 or More Views [facility] Imaging Services [address] [place] [address] Knee 4 or More Views MR#: [id number] Acct: [id number] Name: JERALD YODER Rep #: [id number] : 1960 M 65 From: Domenico Dewey DO PCP: Care Physician,No Primary Status: REG ER Study: Knee 4 or More Views Date of Exam: 04/21/25 Exam# [id number] Ordering Dr: Ar Calle MD PROCEDURE: KNEE 4 OR MORE VIEWS 04/21/2025 REASON FOR EXAM: INJURY/PAIN Initial encounter TECHNIQUE: KNEE 4 OR MORE VIEWS COMPARISON: None. FINDINGS: Bones: No fracture. No dislocation. Joints: Cartilage thinning and periarticular osteophytes indicate osteoarthritis Effusion: None. Soft tissues: Unremarkable Other: RAD/Knee 4 or More Views IMPRESSION: No acute process detected. [facility] CC: Dr. 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 Normal [facility] Emergency Department Summary on 03-26-2025 Emergency Department Summary [facility] Medical Records Department [address] [place] [address] Emergency Department Summary 03/26/25 MR#: [id number] Acct: [id number] Name: JERALD YODER Rep #: [id number] : 1960 64 From: Buster Pereyra DO PCP: Care Physician,No Primary Status:DEP ER Location: ED HPI History of Present Illness Chief Complaint[facility] Medical History (Updated 03/26/25 @ 22:22 by [...] reviewed, Vital signs reviewed Constitutional: please see Neck: No stridor, no JVD, full neck [...] of health (more content not included)... Normal [facility] Urine Cultureon 02-18-2025 URC Staphylococcus aureu s [place] Count >100,000 Staphylococcus aureus: REACTION cefOXitin Susc Islt Doxycycline Islt NASRIN <=0.5 S Clindamycin.induced Susc Islt NEG Gentamicin Islt NASRIN <=0.5 S Linezolid Islt NASRIN 2 S Moxifloxacin Islt NASRIN <=0.25 S Nitrofurantoin Islt NASRIN <=16 S Oxacillin Susc Islt 0.5 S Tetracycline Islt NASRIN <=1 S TMP SMX Islt NASRIN <=10 S Vancomycin Islt NASRIN 1 S Normal [facility] Comment on above: Performed By: #### M 100.9051 ####[facility] [address] [place], [place], [id number] Absolute lymphocyte countOrd ered By: Johann Lemons on 02-16-2025 Lymphocytes Auto (Unsp spec) [#/Vol] 1.39 10*3/uL 0.83-4.51 [facility] Absolute neutrophil countOrd ered By: Johann Lemons on 02-16-2025 Neutrophils (Bld) [#/Vol] 6.4 10*3/uL 2.0-7.7 [facility] Absolute neutrophil count 6.4 X10^3/uL 2.0-7.7 [facility] Anion gap [Moles/Vol]Ordered By: Johann Lemons on 02-16-2025 Anion gap in Serum or Plasma 10 - [facility] Anion gap in Serum or Plasma Ordered By: Johann Lemons on 02-16-2025 Anion gap [Moles/Vol] 10 mmol/L 03-14 [facility] Automated lymphocyte count a s percentage of total leukocytesOrdered By: Johann Lemons on 02-16-2025 Lymphocytes/100 WBC Auto (Unsp spec) 16.0 % Low [facility] BUN/creatinine ratioOrdered By: Johann Lemons on 02-16-2025 Urea nitrogen/Creatinine [Mass ratio] 16.0 mg/mg 08-19 [facility] BUN/creatinine ratio 16.0 RATIO 08-19 [facility] Base excess Calc (BldV) [Mol es/Vol]Ordered By: Johann Lemons on 02-16-2025 Venous blood base excess measurement 8 mmol/L High -1.0-3.5 [facility] Basic Metabolic Profile (BMP )on 02-16-2025 BUN/CRE 16.0 RATIO Normal 08-19 [facility] Comment on above: Performed By: #### L 100.0100, L500.2500, L501.6901 ####[facility] [address] [place], [address] Calcium [Mass/Vol] 9.2 mg/dL Normal 7.6-11.0 [facility] Comment on above: Performed By: #### L 100.0100, L500.2500, L501.6901 ####[facility] [address] [place], [address] Chloride [Moles/Vol] 94 mmol/L Low 98-108 [facility] Comment on above: Performed By: #### L 100.0100, L500.2500, L501.6901 ####[facility] [address] [place], [address] CO2 [Moles/Vol] 27.2 mmol/L Normal 21.0-32.0 [facility] Comment on above: Performed By: #### L 100.0100, L500.2500, L501.6901 ####[facility] [address] [place], [address] Creatinine [Mass/Vol] 0.90 mg/dL Normal 0.70-1.20 [facility] Comment on above: Performed By: #### L 100.0100, L500.2500, L501.6901 ####[facility] [address] [place], [address] ECRCL 104.50 ml/min Normal 50-250 [facility] Comment on above: Performed By: #### L 100.0100, L500.2500, L501.6901 ####[facility] [address] [place], [address] GAP 10 Normal 5-15 [facility] Comment on above: Performed By: #### L 100.0100, L500.2500, L501.6901 ####[facility] [address] [place], [address] GFR/1.73 sq M.predicted among non-blacks MDRD (S/P/Bld) [Vol rate/Area] 96 mL/min/{1.73_m2} Normal >60 [facility] Comment on above: Result Comment: mL/m in/1.73m2 CKD-EPI Creatinine Equation (2020) Performed By: #### L 100.0100, L500.2500, L501.6901 ####[facility] [address] [place], [address] Glucose [Mass/Vol] 453 mg/dL Invalid Interpretation Code 70-99 [facility] Comment on above: Result Comment: Crit ical Result(s) Called at 0505: by:?? NBURNS TO ENRRIQUE Results read back by same. Performed By: #### L 100.0100, L500.2500, L501.6901 ####[facility] [address] [place], [address] Potassium [Moles/Vol] 3.9 mmol/L Normal 3.3-5.1 [facility] Comment on above: Performed By: #### L 100.0100, L500.2500, L501.6901 ####[facility] [address] [place], [address] Sodium [Moles/Vol] 131 mmol/L Low 133-145 [facility] Comment on above: Performed By: #### L 100.0100, L500.2500, L501.6901 ####[facility] [address] [place], [address] Urea nitrogen [Mass/Vol] 14 mg/dL Normal 4-19 [facility] Comment on above: Performed By: #### L 100.0100, L500.2500, L501.6901 ####[facility] [address] [place], [address] Basophil percentageOrdered B y: Johann Cristo on 02-16-2025 Basophils/100 WBC (Bld) 0.5 % 0-1 [facility] Basophil percentage 0.5 % 0-1 [facility] Bedside Glucoseon 02-16-2025 FINGERSTICK GLU 340 mg/dL High 74-106 [facility] Comment on above: Result Comment: TAYLOR GEMENT OF PATIENT CARE PER NURSING PROTOCOL Performed By: #### L 501.080 #### [facility] [address] [place], [address] FINGERSTICK GLU 341 mg/dL High 74-106 [facility] Comment on above: Result Comment: TAYLOR GEMENT OF PATIENT CARE PER NURSING PROTOCOL Performed By: #### L 501.080 #### [facility] [address] [place], [address] FINGERSTICK GLU 414 mg/dL High 74-106 [facility] Comment on above: Result Comment: TAYLOR SEALS OF PATIENT CARE PER NURSING PROTOCOL Performed By: #### L 100.0100, L500.4050 #### [facility] [address] [place], [address] Beta hydroxybutyrate [Mass/V ol]Ordered By: Johann Lemons on 02-16-2025 Beta-hydroxybutyrate 0.1 mmol/L 0.0-0.3 [facility] Beta-Hydroxbytyrateon 2024 BETA-HYDROXYBUT 0.1 mmol/L Normal 0.0-0.3 [facility] Comment on above: Performed By: #### L 100.0100, L500.2500, L501.6901 ####[facility] [address] [place], [address] Beta-hydroxybutyrateOrdered By: Johann Lemons on 02-16-2025 Beta hydroxybutyrate [Mass/Vol] 0.1 mmol/L 0.0-0.3 [facility] Bilirubin Test strip Ql (U)O rdered By: Johann Lemons on 02-16-2025 Bilirubin Ql (U) Negative Negative [facility] CBC W/Diff, Automatedon 01-29 Absolute Lymph 1.39 X10 3/uL Normal 0.83-4.51 [facility] Comment on above: Performed By: #### L 100.0100, L500.2500, L501.6901 #### [facility] [address] [place], [address] Absolute Neut 6.4 X10 3/uL Normal 2.0-7.7 [facility] Comment on above: Performed By: #### L 100.0100, L500.2500, L501.6901 #### [facility] [address] [place], [address] Basophils/100 WBC (Bld) 0.5 % Normal 0-1 [facility] Comment on above: Performed By: #### L 100.0100, L500.2500, L501.6901 #### [facility] [address] [place], [address] Eosinophils/100 WBC (Bld) 2.4 % Normal 0-5 [facility] Comment on above: Performed By: #### L 100.0100, L500.2500, L501.6901 #### [facility] [address] [place], [address] Erythrocyte distribution width (RBC) [Ratio] 12.9 % Normal 11.6-14.6 [facility] Comment on above: Performed By: #### L 100.0100, L500.2500, L501.6901 #### [facility] [address] [place], [address] Hematocrit (Bld) [Volume fraction] 34.5 % Low 40-54 [facility] Comment on above: Performed By: #### L 100.0100, L500.2500, L501.6901 #### [facility] [address] [place], [address] Hemoglobin (Bld) [Mass/Vol] 12.2 g/dL Low 13.0-16.5 [facility] Comment on above: Performed By: #### L 100.0100, L500.2500, L501.6901 #### [facility] [address] [place], [address] IG% 0.500 Normal 0.0-0.9 [facility] Comment on above: Result Comment: IG% - Immature Granulocytes (promyelocytes, myelocytes and metamyelocytes) > 1% indicates that a LEFT SHIFT is Present. Performed By: #### L 100.0100, L500.2500, L501.6901 #### [facility] [address] [place], [address] Lymphocytes/100 WBC (Bld) 16.0 % Low 19-41 [facility] Comment on above: Performed By: #### L 100.0100, L500.2500, L501.6901 #### [facility] [address] [place], [address] MCH (RBC) [Entitic mass] 28.0 pg Normal 27.0-32.0 [facility] Comment on above: Performed By: #### L 100.0100, L500.2500, L501.6901 #### [facility] [address] [place], [address] MCHC (RBC) [Mass/Vol] 35.4 g/dL Normal 32-36 [facility] Comment on above: Performed By: #### L 100.0100, L500.2500, L501.6901 #### [facility] [address] [place], [address] MCV (RBC) [Entitic vol] 79.3 fL Low 80-94 [facility] Comment on above: Performed By: #### L 100.0100, L500.2500, L501.6901 #### [facility] [address] [place], [address] Monocytes/100 WBC (Bld) 7.1 % Normal 0-10 [facility] Comment on above: Performed By: #### L 100.0100, L500.2500, L501.6901 #### [facility] [address] [place], [address] Neutrophils/100 WBC (Bld) 73.5 % High 47-70 [facility] Comment on above: Performed By: #### L 100.0100, L500.2500, L501.6901 #### [facility] [address] [place], [address] Nucleated RBC (Bld) [#/Vol] 0 10*3/uL Normal 0-5 [facility] Comment on above: Performed By: #### L 100.0100, L500.2500, L501.6901 #### [facility] [address] [place], [address] Platelet mean volume (Bld) [Entitic vol] 8.8 fL Normal 6.2-12.0 [facility] Comment on above: Performed By: #### L 100.0100, L500.2500, L501.6901 #### [facility] [address] [place], [address] Platelets (Bld) [#/Vol] 230 10*3/uL Normal 150-450 [facility] Comment on above: Performed By: #### L 100.0100, L500.2500, L501.6901 #### [facility] [address] [place], [address] RBC (Bld) [#/Vol] 4.35 10*6/uL Low 4.6-6.2 [facility] Comment on above: Performed By: #### L 100.0100, L500.2500, L501.6901 #### [facility] [address] [place], [address] RDW SD 36.9 fl Normal 35.1-43.9 [facility] Comment on above: Performed By: #### L 100.0100, L500.2500, L501.6901 #### [facility] [address] [place], [address] WBC (Bld) [#/Vol] 8.7 10*3/uL Normal 4.4-11.0 [facility] Comment on above: Performed By: #### L 100.0100, L500.2500, L501.6901 #### [facility] [address] [place], [address] CO2 (BldV) [Moles/Vol]Ordere d By: Johann Lemons on 02-16-2025 CO2 [Moles/Vol] 34 mmol/L High 23-33 [facility] Venous blood total carbon dioxide measurement 34 mmol/L High 23-33 [facility] CO2 (BldV) [Partial pressure ]Ordered By: Johann Lemons on 02-16-2025 Venous blood partial pressure of carbon dioxide measurement 54.5 mmHg High 41-51 [facility] Calcium [Mass/Vol]Ordered By : Johann Lemons on 02-16-2025 Serum or plasma calcium measurement (mass/volume) 9.2 mg/dL 7.6-11.0 [facility] Carbon dioxide, total [Moles /volume] in Central venous bloodOrdered By: Johann Lemons on 02-16-2025 CO2 [Moles/Vol] 27.2 mmol/L 21.0-32.0 [facility] Carbon dioxide, total [Moles/volume] in Central venous blood 27.2 mmol/L 21.0-32.0 [facility] Chest PA and Lateralon 02-16 Chest PA and Lateral [facility] Imaging Services [address] [place] [address] Chest PA and Lateral MR#: [id number] Acct: [id number] Name: JERALD YODER Rep #: [id number] : 1960 M 64 From: Tacho Alcaraz MD PCP: Care Physician,No Primary Status: REG ER Study: Chest PA and Lateral Date of Exam: 02/16/25 Exam# [id number] Ordering Dr: Johann Lemons DO PROCEDURE: CHEST [...] No evidence of acute disease. Reading Location: [facility] CC: Johann Lemons DO; No Primary Care Physician [employer] Operator: Signed Normal [facility] Chloride assayOrdered By: Julia Lemons on 02-16-2025 Chloride [Moles/Vol] 94 mmol/L Low 98-108 [facility] Chloride assay 94 mmol/L Low 98-108 [facility] Clarity (U)Ordered By: Roland Lemons on 02-16-2025 Urine clarity Turbid Clear [facility] Color (U)Ordered By: Johann Lemons on 02-16-2025 Urine color determination Yellow Yellow [facility] Creatinine [Mass/Vol]Ordered By: Johann Lemons on 02-16-2025 Serum creatinine measurement (mass/volume) 0.90 mg/dL 0.70-1.20 [facility] Emergency Department Summary on 02-16-2025 Emergency Department Summary [facility] Medical Records Department [address] [place] [address] Emergency Department Summary 02/16/25 MR#: [id number] Acct: [id number] Name: JERALD YODER Rep #: [id number] : 1960 64 From: Johann Lemons DO [...] therefore comes in for evaluation [facility] Medical History (Updated 02/16/25 @ 07:[address] Johann Lemons DO) Partial traumatic amputation of left index [...] tablet 5 mg PO BID diabetes 03/19/22 05/1 07/22 History insulin glargine 100 unit/mL (3 10 [...] mucous membranes (more content not included)... Normal [facility] Eosinophil percentageOrdered By: Johann Lemons on 02-16-2025 Eosinophils/100 WBC (Bld) 2.4 % 0-5 [facility] Eosinophil percentage 2.4 % 0-5 [facility] Erythrocyte distribution wid th (RBC) [Ratio]Ordered By: Johann Lemons on 02-16-2025 Erythrocyte distribution width ratio 12.9 % 11.6-14.6 [facility] Erythrocyte distribution width standard deviation 36.9 fl 35.1-43.9 [facility] Erythrocyte distribution wid th ratioOrdered By: Johann Lemons on 02-16-2025 Erythrocyte distribution width (RBC) [Ratio] 12.9 % 11.6-14.6 [facility] Erythrocyte distribution wid th standard deviationOrdered By: Johann Lemons on 02-16-2025 Erythrocyte distribution width (RBC) [Ratio] 36.9 fl 35.1-43.9 [facility] Estimation of creatinine edinson aranceOrdered By: Johann Lemons on 02-16-2025 Estimation of creatinine clearance 104.50 ml/min 50-250 [facility] GFR/1.73 sq M.predicted mari g non-blacks MDRD (S/P/Bld) [Vol rate/Area]Ordered By: Johann Lemons on 02-16-2025 Glomerular filtration rate (GFR) estimation/1.73 sq m using serum, plasma, or whole b 96 >60 [facility] Glomerular filtration rate ( GFR) estimation/1.73 sq m using serum, plasma, or whole bOrdered By: Johann Lemons on 02-16-2025 GFR/1.73 sq M.predicted among non-blacks MDRD (S/P/Bld) [Vol rate/Area] 96 mL/min/{1.73_m2} >60 [facility] Comment on above: mL/min/1.73m2 CKD-EP I Creatinine Equation (2020) Glucose Ql (U)Ordered By: Julia Lemons on 02-16-2025 Urine glucose detection 1000 mg/dl High Normal W [facility] Glucose [Mass/Vol]Ordered By : Johann Lemons on 02-16-2025 Serum glucose measurement (mass/volume) 453 mg/dL High 70-99 [facility] Glucose measurement at bedsi deOrdered By: Johann Lemons on 02-16-2025 Glucose [Mass/Vol] 340 mg/dL High 74-106 [facility] Comment on above: MANAGEMENT OF PATIEN T CARE PER NURSING PROTOCOL Glucose measurement at bedside 341 mg/dL High 74-106 [facility] Hematocrit Auto (Bld) [Volum e fraction]Ordered By: Johann Lemons on 02-16-2025 Hematocrit (Bld) [Volume fraction] 34.5 % Low 40-54 [facility] Automated blood hematocrit (percentage) 34.5 % Low 40-54 [facility] Hemoglobin measurementOrdere d By: Johann Lemons on 02-16-2025 Hemoglobin (Bld) [Mass/Vol] 12.2 g/dL Low 13.0-16.5 [facility] Hemoglobin measurement 12.2 g/dL Low 13.0-16.5 [facility] Immature granulocytes/100 WB C Auto (Bld)Ordered By: Johann Lemons on 02-16-2025 Immature granulocytes/100 WBC (Bld) 0.500 % 0.0-0.9 [facility] Comment on above: IG% - Immature Granu locytes (promyelocytes, myelocytes and metamyelocytes) > 1% indicates that a LEFT SHIFT is Present. Automated immature granulocyte percentage 0.500 % 0.0-0.9 [facility] Ketones Test strip Ql (U)Ord ered By: Johann Lemons on 02-16-2025 Ketones Ql (U) Negative Negative [facility] Leukocyte esterase Test stri p Ql (U)Ordered By: Johann Lemons on 02-16-2025 Urine leukocyte esterase detection by dipstick 500 /ul High Negative [facility] Lymphocytes Auto (Unsp spec) [#/Vol]Ordered By: Johann Lemons on 02-16-2025 Absolute lymphocyte count 1.39 X10^3/uL 0.83-4.51 [facility] Lymphocytes/100 WBC Auto (Un sp spec)Ordered By: Johann Lemons on 02-16-2025 Automated lymphocyte count as percentage of total leukocytes 16.0 % Low 19-41 [facility] MCV (RBC) [Entitic vol]Order ed By: Johann Lemons on 02-16-2025 MCV (mean corpuscular volume) determination 79.3 fL Low 80-94 [facility] MCV (mean corpuscular volume ) determinationOrdered By: Johann Lemons on 02-16-2025 MCV (RBC) [Entitic vol] 79.3 fL Low 80-94 [facility] Mean corpuscular hemoglobin (MCH) determinationOrdered By: Johann Lemons on 02-16-2025 MCH (RBC) [Entitic mass] 28.0 pg 27.0-32.0 [facility] Mean corpuscular hemoglobin (MCH) determination 28.0 pg 27.0-32.0 [facility] Mean corpuscular hemoglobin concentration (MCHC) determinationOrdered By: Johann Lemons on 02-16-2025 MCHC (RBC) [Mass/Vol] 35.4 g/dL 32-36 [facility] Mean corpuscular hemoglobin concentration (MCHC) determination 35.4 g/dL 32-36 [facility] Mean platelet volume determi nationOrdered By: Johann Lemons on 02-16-2025 Platelet mean volume (Bld) [Entitic vol] 8.8 fL 6.2-12.0 [facility] Mean platelet volume determination 8.8 fl 6.2-12.0 [facility] Microscopic analysis of urin e for red blood cells (RBC)Ordered By: Johann Lemons on 02-16-2025 Microscopic analysis of urine for red blood cells (RBC) 0 SEEN /hpf 0-5 [facility] Microscopic analysis of urine for red blood cells (RBC) 0 SEEN /hpf [facility] Monocyte percentageOrdered B y: Johann Lemons on 02-16-2025 Monocytes/100 WBC (Bld) 7.1 % 0-10 [facility] Monocyte percentage 7.1 % 0-10 [facility] Mucus LM Ql (Urine sed)Order ed By: Johann Lemons on 02-16-2025 Mucus Ql (Urine sed) 0 SEEN /hpf [facility] Neutrophil percentageOrdered By: Johann Lemons on 02-16-2025 Neutrophils/100 WBC (Bld) 73.5 % High 47-70 [facility] Neutrophil percentage 73.5 % High 47-70 [facility] Nitrite Test strip Ql (U)Ord ered By: Johann Lemons on 02-16-2025 Nitrite Ql (U) Positive High Negative [facility] Urine nitrite test by dipstick Positive High Negative [facility] No Panel InformationOrdered By: Johann Lemons on 02-16-2025 Blood Gas Sample Site Not entered [facility] Blood Gas Specimen Type GRACY [facility] Oxygen Delivery Device Not entered [facility] GRACY [facility] Not entered [facility] Nucleated red blood cell per centageOrdered By: Johann Lemons on 02-16-2025 Nucleated RBC/100 WBC (Bld) [Ratio] 0 % 0-5 [facility] Nucleated red blood cell percentage 0 % 0-5 [facility] Oxygen (BldV) [Partial press ure]Ordered By: Joahnn Lemons on 02-16-2025 Venous blood partial pressure of oxygen measurement 46 mmHg High 25-40 [facility] Platelet countOrdered By: Julia Lemons on 02-16-2025 Platelets (Bld) [#/Vol] 230 10*3/uL 150-450 [facility] Platelet count 230 K/mm3 150-450 [facility] Potassium (Unsp spec) [Mass/ Vol]Ordered By: Johann Lemons on 02-16-2025 Potassium measurement (mass/volume) 3.9 mmol/L 3.3-5.1 [facility] Potassium measurement (mass/ volume)Ordered By: Johnan Lemons on 02-16-2025 Potassium (Unsp spec) [Mass/Vol] 3.9 mmol/L 3.3-5.1 [facility] Protein Test strip Ql (U)Ord ered By: Johann Lemons on 02-16-2025 Protein Ql (U) 100 mg/dl High Negative [facility] Urine protein assay by test strip, semi-quantitative 100 mg/dl High Negative [facility] RBC Auto (Bld) [#/Vol]Ordere d By: Johann Lemons on 02-16-2025 RBC (Bld) [#/Vol] 4.35 10*6/uL Low 4.6-6.2 [facility] Automated blood erythrocyte count 4.35 M/mm3 Low 4.6-6.2 [facility] Serum creatinine measurement (mass/volume)Ordered By: Johann Lemons on 02-16-2025 Creatinine [Mass/Vol] 0.90 mg/dL 0.70-1.20 [facility] Serum glucose measurement (m ass/volume)Ordered By: Johann Lemons on 02-16-2025 Glucose [Mass/Vol] 453 mg/dL High 70-99 [facility] Comment on above: Critical Result(s) C alled at 0505: by: MARYAM OSUNA Results read back by same. Serum or plasma calcium yayo urement (mass/volume)Ordered By: Johann Lemons on 02-16-2025 Calcium [Mass/Vol] 9.2 mg/dL 7.6-11.0 [facility] Serum or plasma urea nitroge n measurement (mass/volume)Ordered By: Johann Lemons on 02-16-2025 Urea nitrogen [Mass/Vol] 14 mg/dL 02-16 [facility] Sodium levelOrdered By: Keith Lemons on 02-16-2025 Sodium [Moles/Vol] 131 mmol/L Low 133-145 [facility] Sodium level 131 mmol/L Low 133-145 [facility] Specific gravity (U) [Rel de nsity]Ordered By: Johann Lemons on 02-16-2025 Urine specific gravity measurement 1.010 1.002-1.030 [facility] Squamous epithelial cells de tection in urine sediment by light microscopyOrdered By: Johann Lemons on 02-16-2025 Epithelial cells.squamous LM Ql (Urine sed) 0 SEEN /hpf 0-5 [facility] Urea nitrogen [Mass/Vol]Orde red By: Johann Lemons on 02-16-2025 Serum or plasma urea nitrogen measurement (mass/volume) 14 mg/dL 02-16 [facility] Urinalysis, Completeon 02-16 WBC >100 SEEN Normal 0-5 [facility] Comment on above: Order Comment: CLEAN CATCH Performed By: #### L 501.080 #### [facility] [address] [place], [address] BACTERIA 0 SEEN Normal None Seen [facility] Comment on above: Order Comment: CLEAN CATCH Performed By: #### L 501.080 #### [facility] [address] [place], [address] EPI,SQUAMOUS 0 SEEN Normal 0-5 [facility] Comment on above: Order Comment: CLEAN CATCH Performed By: #### L 501.080 #### [facility] [address] [place], [address] Mucus Ql (Urine sed) 0 SEEN Normal [facility] Comment on above: Order Comment: CLEAN CATCH Performed By: #### L 501.080 #### [facility] [address] [place], [address] RBC 0 SEEN Normal 0-5 [facility] Comment on above: Order Comment: CLEAN CATCH Performed By: #### L 501.080 #### [facility] [address] [place], [address] Urine blood detectionOrdered By: Johann Lemons on 02-16-2025 Urine blood detection 150 /ul High Negative [facility] Urine clarityOrdered By: Otoniel Lemons on 02-16-2025 Clarity (U) Turbid Clear [facility] Urine color determinationOrd ered By: Johann Lemons on 02-16-2025 Color (U) Yellow Yellow [facility] Urine cultureOrdered By: Otoniel Lemons on 02-16-2025 Bacteria identified Cx Nom (U) Staphylococcus aureus Abnormal [facility] Urine glucose detectionOrder ed By: Johann Lemons on 02-16-2025 Glucose Ql (U) 1000 mg/dl High Normal [facility] Urine leukocyte esterase det ection by dipstickOrdered By: Johann Lemons on 02-16-2025 Leukocyte esterase Test strip Ql (U) 500 /ul High Negative [facility] Urine pHOrdered By: Johann borjas on 02-16-2025 pH (U) 6.0 [pH] 5.0 - 8.0 [facility] Urine sediment bacteria coun t by microscopy (number/high power field)Ordered By: Johann Lemons on 02-16-2025 Bacteria LM.HPF (Urine sed) [#/Area] 0 /[HPF] None Seen [facility] Urine specific gravity measu rementOrdered By: Johann Lemons on 02-16-2025 Specific gravity (U) [Rel density] 1.010 1.002-1.030 [facility] Urine total bilirubin detect ion by test stripOrdered By: Johann Lemons on 02-16-2025 Urine total bilirubin detection by test strip Negative Negative [facility] Urine urobilinogen measureme ntOrdered By: Johann Lemons on 02-16-2025 Urobilinogen Ql (U) Normal mg/dl Normal [facility] Urobilinogen Ql (U)Ordered B y: Johann Lemons on 02-16-2025 Urine urobilinogen measurement Normal mg/dl Normal [facility] Venous Blood Gason Blood Gas Type GRACY Normal [facility] Comment on above: Performed By: #### L 501.080 #### [facility] [address], [address] CO2 [Moles/Vol] 34 mmol/L High 23-33 [facility] Comment on above: Performed By: #### L 501.080 #### [facility] [address] [place], [address] HCO3 (Bld) [Moles/Vol] 33 mmol/L High 22-26 [facility] Comment on above: Performed By: #### L 501.080 #### [facility] [address] [place], [address] O2 Delivery Dev Not entered Normal [facility] Comment on above: Performed By: #### L 501.080 #### [facility] [address] [place], [address] SITE Not entered Normal [facility] Comment on above: Performed By: #### L 501.080 #### [facility] [address] [place], [address] VBG BE 8 mmol/L High -1.0-3.5 [facility] Comment on above: Performed By: #### L 501.080 #### [facility] [address] [place], [address] VBG pCO2 54.5 mmHg High 41-51 [facility] Comment on above: Performed By: #### L 501.080 #### [facility] [address] [place], [address] VBG pH 7.39 Normal 7.32-7.42 [facility] Comment on above: Performed By: #### L 501.080 #### [facility] [address] [place], [address] VBG PO2 46 mmHg High 25-40 [facility] Comment on above: Performed By: #### L 501.080 #### [facility] [address] [place], [address] VBG SO2 80 High 50-70 [facility] Comment on above: Performed By: #### L 501.080 #### [facility] [address] [place], [address] Venous blood base excess sarina surementOrdered By: Johann Lemons on 02-16-2025 Base excess Calc (BldV) [Moles/Vol] 8 mmol/L High -1.0-3.5 [facility] Venous blood bicarbonate sarina surementOrdered By: Johann Lemons on 02-16-2025 HCO3 (Bld) [Moles/Vol] 33 mmol/L High 22-26 [facility] Venous blood bicarbonate measurement 33 mmol/L High 22-26 [facility] Venous blood oxygen saturati on measurementOrdered By: Johann Lemons on 02-16-2025 Oxygen saturation in Blood 80 % High 50-70 [facility] Venous blood oxygen saturation measurement 80 % High 50-70 [facility] Venous blood pH measurementO rdered By: Johann Lemons on 02-16-2025 pH (BldV) 7.39 [pH] 7.32-7.42 [facility] Venous blood partial pressur e of carbon dioxide measurementOrdered By: Johann Lemons on 02-16-2025 CO2 (BldV) [Partial pressure] 54.5 mm[Hg] High 41-51 [facility] Venous blood partial pressur e of oxygen measurementOrdered By: Johann Lemons on 02-16-2025 Oxygen (BldV) [Partial pressure] 46 mm[Hg] High 25-40 [facility] White blood cell (WBC) count Ordered By: Johann Lemons on 02-16-2025 WBC (Bld) [#/Vol] 8.7 10*3/uL 4.4-11.0 [facility] White blood cell (WBC) count 8.7 K/mm3 4.4-11.0 [facility] White blood cell countOrdere d By: Johann Lemons on 02-16-2025 White blood cell count >100 SEEN /hpf 0-5 [facility] White blood cell count >100 SEEN /hpf 0-5 [facility] pH (BldV)Ordered By: Johann Lemons on 02-16-2025 Venous blood pH measurement 7.39 7.32-7.42 [facility] pH (U)Ordered By: Wilmer on 02-16-2025 Urine pH 6.0 5.0 - 8.0 [facility] Urine Cultureon 12-29-2024 [facility] Staphylococcus aureu s [place] Count >100,000 Staphylococcus aureus: REACTION cefOXitin Susc Islt Doxycycline Islt NASRIN <=0.5 S Clindamycin.induced Susc Islt NEG Gentamicin Islt NASRIN <=0.5 S Linezolid Islt NASRIN 2 S Moxifloxacin Islt NASRIN <=0.25 S Nitrofurantoin Islt NASRIN <=16 S Oxacillin Susc Islt 0.5 S Tetracycline Islt NASRIN <=1 S TMP SMX Islt NASRIN <=10 S Vancomycin Islt NASRIN <=0.5 S Normal [facility] Comment on above: Performed By: #### M 100.2200 ####[facility] [id number] [facility] [place], [address] Bacteria LM.HPF (Urine sed) [#/Area]Ordered By: ED PROVIDER on 12-27-2024 Urine sediment bacteria count by microscopy (number/high power field) 3+ /hpf None Seen [facility] Bilirubin Test strip Ql (U)O rdered By: ED PROVIDER on 12-27-2024 Bilirubin Ql (U) Negative Negative [facility] Clarity (U)Ordered By: ED AR OVIDER on 12-27-2024 Urine clarity Turbid Clear [facility] Color (U)Ordered By: ED PROV IDER on 12-27-2024 Urine color determination Yellow Yellow [facility] Emergency Department Summary on 12-27-2024 Emergency Department Summary [facility] Medical Records Department [address] [place] [address] Emergency Department Summary 12/27/24 MR#: [id number] Acct: [id number] Name: JERALD YODER Rep #: [id number] : 1960 64 From: Panchito Yun PCP: Care Physician,No Primary Status:REG ER Location: ED HPI History of Present Illness Chief Complaint: Complaint Informant: patient Narrative Narrative: Present burning with urination since noon yesterday. No fevers back pain abdominal pain vomiting diarrhea. History of UTIs. Penicillin allergy causing rash. Prior similar symptoms: [facility] Medical History Partial traumatic amputation of left [...] Neck f (more content not included)... Normal [facility] Glucose Ql (U)Ordered By: ED PROVIDER on 12-27-2024 Urine glucose detection 1000 mg/dl High Normal W [facility] Ketones Test strip Ql (U)Ord ered By: ED PROVIDER on 12-27-2024 Ketones Ql (U) Negative Negative [facility] Leukocyte esterase Test stri p Ql (U)Ordered By: ED PROVIDER on 12-27-2024 Urine leukocyte esterase detection by dipstick 500 /ul High Negative [facility] Microscopic analysis of urin e for red blood cells (RBC)Ordered By: ED PROVIDER on 12-27-2024 Microscopic analysis of urine for red blood cells (RBC) 25-50 SEEN /hpf 0-5 [facility] Microscopic analysis of urine for red blood cells (RBC) 25-50 SEEN /hpf 0-5 [facility] Mucus LM Ql (Urine sed)Order ed By: ED PROVIDER on 12-27-2024 Mucus Ql (Urine sed) 0 SEEN /hpf [facility] Nitrite Test strip Ql (U)Ord ered By: ED PROVIDER on 12-27-2024 Nitrite Ql (U) Positive High Negative [facility] Urine nitrite test by dipstick Positive High Negative [facility] Protein Test strip Ql (U)Ord ered By: ED PROVIDER on 12-27-2024 Protein Ql (U) 500 mg/dl High Negative [facility] Urine protein assay by test strip, semi-quantitative 500 mg/dl High Negative [facility] Specific gravity (U) [Rel de nsity]Ordered By: ED PROVIDER on 12-27-2024 Urine specific gravity measurement 1.015 1.002-1.030 [facility] Squamous epithelial cells de tection in urine sediment by light microscopyOrdered By: ED PROVIDER on 12-27-2024 Epithelial cells.squamous LM Ql (Urine sed) 0 SEEN /hpf 0-5 [facility] Squamous epithelial cells detection in urine sediment by light microscopy 0 SEEN /hpf [facility] Urinalysis, Completeon 12-27 BACTERIA 3+ /hpf Normal None Seen [facility] Comment on above: Order Comment: CLEAN CATCH Performed By: #### L 100.0100, L500.4050 #### [facility] [address] [place], [address] RBC 25-50 SEEN Normal 0-[address] [place] [address] Comment on above: Order Comment: CLEAN CATCH Performed By: #### L 100.0100, L500.4050 #### [facility] [address] [place], [address] WBC >100 SEEN Normal 0-5 [facility] Comment on above: Order Comment: CLEAN CATCH Result Comment: Micr oscopic field is filled. Other elements may be obscured. Performed By: #### L 100.0100, L500.4050 #### [facility] [address] [place], [address] EPI,SQUAMOUS 0 SEEN Normal 0-[address] [place] [address] Comment on above: Order Comment: CLEAN CATCH Performed By: #### L 100.0100, L500.4050 #### [facility] [address] [place], [address] Mucus Ql (Urine sed) 0 SEEN Normal [facility] Comment on above: Order Comment: CLEAN CATCH Performed By: #### L 100.0100, L500.4050 #### [facility] [address] [place], [address] Urine blood detectionOrdered By: ED PROVIDER on 12-27-2024 Urine blood detection 250 /ul High Negative [facility] Urine clarityOrdered By: ED PROVIDER on 12-27-2024 Clarity (U) Turbid Clear [facility] Urine color determinationOrd ered By: ED PROVIDER on 12-27-2024 Color (U) Yellow Yellow [facility] Urine glucose detectionOrder ed By: ED PROVIDER on 12-27-2024 Glucose Ql (U) 1000 mg/dl High Normal [facility] Urine leukocyte esterase det ection by dipstickOrdered By: ED PROVIDER on 12-27-2024 Leukocyte esterase Test strip Ql (U) 500 /ul High Negative [facility] Urine pHOrdered By: ED PROVI CRISTINA on 12-27-2024 pH (U) 6.0 [pH] 5.0 - 8.0 [facility] Urine sediment bacteria coun t by microscopy (number/high power field)Ordered By: ED PROVIDER on 12-27-2024 Bacteria LM.HPF (Urine sed) [#/Area] 3 /[HPF] None Seen [facility] Urine specific gravity measu rementOrdered By: ED PROVIDER on 12-27-2024 Specific gravity (U) [Rel density] 1.015 1.002-1.030 [facility] Urine total bilirubin detect ion by test stripOrdered By: ED PROVIDER on 12-27-2024 Urine total bilirubin detection by test strip Negative Negative [facility] Urine urobilinogen measureme ntOrdered By: ED PROVIDER on 12-27-2024 Urobilinogen Ql (U) Normal mg/dl Normal [facility] Urobilinogen Ql (U)Ordered B y: ED PROVIDER on 12-27-2024 Urine urobilinogen measurement Normal mg/dl Normal [facility] White blood cell countOrdere d By: ED PROVIDER on 12-27-2024 White blood cell count >100 SEEN /hpf 0-5 [facility] Comment on above: Microscopic field is filled. Other elements may be obscured. White blood cell count >100 SEEN /hpf 0-5 [facility] pH (U)Ordered By: ED PROVIDE R on 12-27-2024 Urine pH 6.0 5.0 - 8.0 [facility] Urine cultureOrdered By: Harley Castillo on 12-26-2024 Bacteria identified Cx Nom (U) Staphylococcus aureus Abnormal [facility] Urine culture Staphylococcus aureus Abnormal [facility] ALP [Catalytic activity/Vol] Ordered By: Avni Cash on 12-20-2024 Serum or plasma alkaline phosphatase measurement 117 U/L 45-117 [facility] ALT [Catalytic activity/Vol] Ordered By: Avni Cash on 12-20-2024 Serum or plasma alanine aminotransferase (ALT) measurement 16 U/L 16-61 [facility] Abdomen/Pelvis W IV Cont ONL Yon 12-20-2024 Abdomen/Pelvis W IV Cont ONLY [facility] Services [address], [place] [id number] Abdomen/Pelvis W IV Cont ONLY MR#: [id number] Acct: [id number] Name: JERALD YODER Rep #: [id number] : 1960 M 64 From: Beck Quigley MD PCP: Care Physician,No Primary Status: REG ER Study: Abdomen/Pelvis W IV Cont ONLY Date of Exam: Exam# [id number] Ordering Dr: Avni Cash MD PROCEDURE: ABDOMEN/PELVIS [...] use of iterative reconstruction technique). Reading Location: [place] [address] CC: Dr. Avni Cash MD; No Primary Care Physician [employer] Operator: Signed Normal [facility] Absolute lymphocyte countOrd ered By: Avni Cash on 12-20-2024 Lymphocytes Auto (Unsp spec) [#/Vol] 1.10 10*3/uL 0.83-4.51 [facility] Absolute neutrophil countOrd ered By: Avni Cash on 12-20-2024 Neutrophils (Bld) [#/Vol] 6.6 10*3/uL 2.0-7.7 [facility] Absolute neutrophil count 6.6 X10^3/uL 2.0-7.7 [facility] Albumin [Mass/Vol]Ordered By : Avni Cash on 12-20-2024 Serum or plasma albumin measurement (mass/volume) 3.4 g/dL 3.2-5.0 [facility] Albumin to globulin ratioOrd ered By: Avni Cash on 12-20-2024 Albumin/Globulin [Mass ratio] 0.8 {ratio} Low 0.9-2.4 [facility] Albumin to globulin ratio 0.8 RATIO Low 0.9-2.4 [facility] Automated lymphocyte count a s percentage of total leukocytesOrdered By: Avni Cash on 12-20-2024 Lymphocytes/100 WBC Auto (Unsp spec) 13.2 % Low 19-41 [facility] Basophil percentageOrdered B y: Avni Cash on 12-20-2024 Basophils/100 WBC (Bld) 0.5 % 0-1 [facility] Basophil percentage 0.5 % 0-1 [facility] Bilirubin Test strip Ql (U)O rdered By: Avni Cash on 12-20-2024 Bilirubin Ql (U) Negative Negative [facility] Bilirubin, totalOrdered By: Avni Cash on 12-20-2024 Bilirubin [Mass/Vol] 0.70 mg/dL 0.20-1.00 [facility] Comment on above: For patients on eltr ombopag therapy, use of Dimension [place] TBIL is not recommended. Bilirubin, total 0.70 mg/dL 0.20-1.00 [facility] Blood urea nitrogen (BUN)/cr eatinine ratioOrdered By: Avni Cash on 12-20-2024 Urea nitrogen/Creatinine [Mass ratio] 11.2 mg/mg 08-19 [facility] Blood urea nitrogen (BUN)/creatinine ratio 11.2 RATIO 08-19 [facility] CBC W/Diff, Automatedon 12-02 Absolute Lymph 1.10 X10 3/uL Normal 0.83-4.51 [facility] Comment on above: Performed By: #### L 501.080 #### [facility] [address] [place], [place], [id number] Absolute Neut 6.6 X10 3/uL Normal 2.0-7.7 [facility] Comment on above: Performed By: #### L 501.080 #### [facility] [address] [place], [address] Basophils/100 WBC (Bld) 0.5 % Normal 0-1 [facility] Comment on above: Performed By: #### L 501.080 #### [facility] [address] [place], [address] Eosinophils/100 WBC (Bld) 1.7 % Normal 0-5 [facility] Comment on above: Performed By: #### L 501.080 #### [facility] [address] [place], [address] Erythrocyte distribution width (RBC) [Ratio] 13.9 % Normal 11.6-14.6 [facility] Comment on above: Performed By: #### L 501.080 #### [facility] [address] [place], [address] Hematocrit (Bld) [Volume fraction] 40.7 % Normal 40-54 [facility] Comment on above: Performed By: #### L 501.080 #### [facility] [address] [place], [address] Hemoglobin (Bld) [Mass/Vol] 14.4 g/dL Normal 13.0-16.5 [facility] Comment on above: Performed By: #### L 501.080 #### [facility] [address] [place], [address] IG% 0.800 Normal 0.0-0.9 [facility] Comment on above: Result Comment: IG% - Immature Granulocytes (promyelocytes, myelocytes and metamyelocytes) > 1% indicates that a LEFT SHIFT is Present. Performed By: #### L 501.080 #### [facility] [address] [place], [address] Lymphocytes/100 WBC (Bld) 13.2 % Low 19-41 [facility] Comment on above: Performed By: #### L 501.080 #### [facility] [address] [place], [address] MCH (RBC) [Entitic mass] 29.1 pg Normal 27.0-32.0 [facility] Comment on above: Performed By: #### L 501.080 #### [facility] [address] [place], [address] MCHC (RBC) [Mass/Vol] 35.4 g/dL Normal 32-36 [facility] Comment on above: Performed By: #### L 501.080 #### [facility] [address] [place], [address] MCV (RBC) [Entitic vol] 82.2 fL Normal 80-94 [facility] Comment on above: Performed By: #### L 501.080 #### [facility] [address] [place], [address] Monocytes/100 WBC (Bld) 5.3 % Normal 0-10 [facility] Comment on above: Performed By: #### L 501.080 #### [facility] [address] [place], [address] Neutrophils/100 WBC (Bld) 78.5 % High 47-70 [facility] Comment on above: Performed By: #### L 501.080 #### [facility] [address] [place], [address] Nucleated RBC (Bld) [#/Vol] 0 10*3/uL Normal 0-5 [facility] Comment on above: Performed By: #### L 501.080 #### [facility] [address] [place], [address] Platelet mean volume (Bld) [Entitic vol] 9.3 fL Normal 6.2-12.0 [facility] Comment on above: Performed By: #### L 501.080 #### [facility] [address] [place], [address] Platelets (Bld) [#/Vol] 281 10*3/uL Normal 150-450 [facility] Comment on above: Performed By: #### L 501.080 #### [facility] [address] [place], [address] RBC (Bld) [#/Vol] 4.95 10*6/uL Normal 4.6-6.2 [facility] Comment on above: Performed By: #### L 501.080 #### [facility] [address] [place], [address] RDW SD 41.1 fl Normal 35.1-43.9 [facility] Comment on above: Performed By: #### L 501.080 #### [facility] [address] [place], [address] WBC (Bld) [#/Vol] 8.4 10*3/uL Normal 4.4-11.0 [facility] Comment on above: Performed By: #### L 501.080 #### [facility] [address] [place], [address] Calcium [Mass/Vol]Ordered By : Avni Cash on 12-20-2024 Serum or plasma calcium measurement (mass/volume) 9.7 mg/dL 8.5-10.1 [facility] Carbon dioxide measurementOr dered By: Avni Cash on 12-20-2024 CO2 [Moles/Vol] 31.0 mmol/L 21.0-32.0 [facility] Carbon dioxide measurement 31.0 mmol/L 21.0-32.0 [facility] Chloride measurementOrdered By: Avni Cash on 12-20-2024 Chloride [Moles/Vol] 99 mmol/L 98-107 [facility] Chloride measurement 99 mmol/L 98-107 [facility] Clarity (U)Ordered By: Avni Cash on 12-20-2024 Urine clarity Clear Clear [facility] Color (U)Ordered By: Avni hauser on 12-20-2024 Urine color determination Yellow Yellow [facility] Comprehensive Metabolic Prof ilon 12-20-2024 Albumin [Mass/Vol] 3.4 g/dL Normal 3.2-5.0 [facility] Comment on above: Performed By: #### L 501.080 #### [facility] [address] [place], [address] Albumin/Globulin [Mass ratio] 0.8 {ratio} Low 0.9-2.4 [facility] Comment on above: Performed By: #### L 501.080 #### [facility] [address] [place], [address] ALK P 117 U/L Normal 45-117 [facility] Comment on above: Performed By: #### L 501.080 #### [facility] [address] [place], [address] ALT [Catalytic activity/Vol] 16 U/L Normal 16-61 [facility] Comment on above: Performed By: #### L 501.080 #### [facility] [address] [place], [address] AST [Catalytic activity/Vol] 8 U/L Low 15-37 [facility] Comment on above: Performed By: #### L 501.080 #### [facility] [address] [place], [address] Bilirubin [Mass/Vol] 0.70 mg/dL Normal 0.20-1.00 [facility] Comment on above: Result Comment: For patients on eltrombopag therapy, use of Dimension [place] TBIL is not recommended. Performed By: #### L 501.080 #### [facility] [address] [place], [address] BUN/CRE 11.2 RATIO Normal 10-20 [facility] Comment on above: Performed By: #### L 501.080 #### [facility] [address] [place], [address] CA,Total 9.7 mg/dL Normal 8.5-10.1 [facility] Comment on above: Performed By: #### L 501.080 #### [facility] [address] [place], [address] Chloride [Moles/Vol] 99 mmol/L Normal 98-107 [facility] Comment on above: Performed By: #### L 501.080 #### [facility] [address] [place], [address] CO2 [Moles/Vol] 31.0 mmol/L Normal 21.0-32.0 [facility] Comment on above: Performed By: #### L 501.080 #### [facility] [address] [place], [address] Creatinine [Mass/Vol] 0.89 mg/dL Normal 0.70-1.30 [facility] Comment on above: Result Comment: The validity of the calculated GFR GFRAA in patients over 70 years has not been determined. Clinical correlation is essential. Performed By: #### L 501.080 #### [facility] [address] [place], [address] EST GFR - AA 110 mL/min Normal >60 [facility] Comment on above: Result Comment: Afri can Mosoth[place] GFR Calc Performed By: #### L 501.080 #### [facility] [address] [place], [address] GAP 5 Normal 5-15 [facility] Comment on above: Performed By: #### L 501.080 #### [facility] [address] [place], [address] GFR/1.73 sq M.predicted among non-blacks MDRD (S/P/Bld) [Vol rate/Area] 91 mL/min/{1.73_m2} Normal >60 [facility] Comment on above: Result Comment: Non- GFR Calc Performed By: #### L 501.080 #### [facility] [address] [place], [address] Globulin (S) [Mass/Vol] 4.1 g/dL Normal 2.2-4.2 [facility] Comment on above: Performed By: #### L 501.080 #### [facility] [address] [place], [address] Glucose [Mass/Vol] 424 mg/dL High 74-106 [facility] Comment on above: Result Comment: Gluc ose result greater than or equal to 200 mg/dL suggests DIABETES MELLITUS per A.D.A. criteria. Performed By: #### L 501.080 #### [facility] [address] [place], [address] Potassium [Moles/Vol] 4.3 mmol/L Normal 3.5-5.1 [facility] Comment on above: Performed By: #### L 501.080 #### [facility] [address] [place], [address] Sodium [Moles/Vol] 135 mmol/L Low 136-145 [facility] Comment on above: Performed By: #### L 501.080 #### [facility] [address] [place], [address] T PROT 7.5 g/dL Normal 6.4-8.2 [facility] Comment on above: Performed By: #### L 501.080 #### [facility] [address] [place], [address] Urea nitrogen [Mass/Vol] 10 mg/dL Normal 7-18 [facility] Comment on above: Performed By: #### L 501.080 #### [facility] [address] [place], [address] Creatinine [Mass/Vol]Ordered By: Avni Cash on 12-20-2024 Serum or plasma creatinine measurement (mass/volume) 0.89 mg/dL 0.70-1.30 [facility] Emergency Department Summary on 12-20-2024 Emergency Department Summary [facility] Medical Records Department [address] [place] [address] Emergency Department Summary 12/20/24 MR#: [id number] Acct: [id number] Name: JERALD YODER Rep #: [id number] : 1960 64 From: Avni Cash MD [...] Genitourinary G (more content not included)... Normal [facility] Eosinophil percentageOrdered By: Avni Cash on 12-20-2024 Eosinophils/100 WBC (Bld) 1.7 % 0-5 [facility] Eosinophil percentage 1.7 % 0-5 [facility] Erythrocyte distribution wid th (RBC) [Ratio]Ordered By: Avni Cash on 12-20-2024 Erythrocyte distribution width ratio 13.9 % 11.6-14.6 [facility] Erythrocyte distribution width standard deviation 41.1 fl 35.1-43.9 [facility] Erythrocyte distribution wid th ratioOrdered By: Avni Cash on 12-20-2024 Erythrocyte distribution width (RBC) [Ratio] 13.9 % 11.6-14.6 [facility] Erythrocyte distribution wid th standard deviationOrdered By: Avni Cash on 12-20-2024 Erythrocyte distribution width (RBC) [Ratio] 41.1 fl 35.1-43.9 [facility] Estimated glomerular filtrat ion rate (GFR) AmericanOrdered By: Avni Cash on 12-20-2024 Estimated glomerular filtration rate (GFR) 110 mL/min >60 [facility] Glomerular filtration rate ( GFR) estimationOrdered By: Avni Cash on 12-20-2024 GFR/1.73 sq M.predicted among non-blacks MDRD (S/P/Bld) [Vol rate/Area] 91 mL/min/{1.73_m2} >60 [facility] Comment on above: Non- GFR Calc Glomerular filtration rate (GFR) estimation 91 mL/min >60 [facility] Glucose Ql (U)Ordered By: Vitor Cash on 12-20-2024 Urine glucose detection 1000 mg/dl High Normal [facility] Glucose measurementOrdered B y: Avni Cash on 12-20-2024 Glucose [Mass/Vol] 424 mg/dL High 74-106 [facility] Comment on above: Glucose result great er than or equal to 200 mg/dLsuggests DIABETES MELLITUS per A.D.A. criteria. Glucose measurement 424 mg/dL High 74-106 [facility] Hematocrit Auto (Bld) [Volum e fraction]Ordered By: Avni Cash on 12-20-2024 Hematocrit (Bld) [Volume fraction] 40.7 % 40-54 [facility] Automated blood hematocrit (percentage) 40.7 % 40-54 [facility] Hemoglobin measurementOrdere d By: Avni Cash on 12-20-2024 Hemoglobin (Bld) [Mass/Vol] 14.4 g/dL 13.0-16.5 [facility] Hemoglobin measurement 14.4 g/dL 13.0-16.5 [facility] Hyaline casts LM.LPF (Urine sed) [#/Area]Ordered By: Avni Cash on 12-20-2024 Hyaline casts (Urine sed) [#/Area] 0 /[LPF] 0-5 [facility] Urine sediment hyaline cast count by microscopy (number/low power field) 0-5 SEEN /lpf 0-5 [facility] Immature granulocytes/100 WB C Auto (Bld)Ordered By: Avni Cash on 12-20-2024 Immature granulocytes/100 WBC (Bld) 0.800 % 0.0-0.9 [facility] Comment on above: IG% - Immature Granu locytes (promyelocytes, myelocytes and metamyelocytes) > 1% indicates that a LEFT SHIFT is Present. Automated immature granulocyte percentage 0.800 % 0.0-0.9 [facility] Ketones Test strip Ql (U)Ord ered By: Avni Cash on 12-20-2024 Ketones Ql (U) Negative Negative [facility] - Chemistry and C hemistry - challengeOrdered By: Avni Cash on 12-20-2024 AST [Catalytic activity/Vol] 8 U/L Low 15-37 [facility] Lipaseon 12-20-2024 Lipase [Catalytic activity/Vol] 13 U/L Low 73-393 [facility] Comment on above: Performed By: #### L 501.080 #### [facility] [address] [place], [address] Lipase measurementOrdered By : Avni Cash on 12-20-2024 Lipase [Catalytic activity/Vol] 13 U/L Low 73-393 [facility] Lipase measurement 13 U/L Low 73-393 [facility] Lymphocytes Auto (Unsp spec) [#/Vol]Ordered By: Avni Cash on 12-20-2024 Absolute lymphocyte count 1.10 X10^3/uL 0.83-4.51 [facility] Lymphocytes/100 WBC Auto (Un sp spec)Ordered By: Avni Cash on 12-20-2024 Automated lymphocyte count as percentage of total leukocytes 13.2 % Low 19-41 [facility] MCV (RBC) [Entitic vol]Order ed By: Avni Cash on 12-20-2024 MCV (mean corpuscular volume) determination 82.2 fL 80-94 [facility] MCV (mean corpuscular volume ) determinationOrdered By: Avni Cash on 12-20-2024 MCV (RBC) [Entitic vol] 82.2 fL 80-94 [facility] Mean corpuscular hemoglobin (MCH) determinationOrdered By: Avni Cash on 12-20-2024 MCH (RBC) [Entitic mass] 29.1 pg 27.0-32.0 [facility] Mean corpuscular hemoglobin (MCH) determination 29.1 pg 27.0-32.0 [facility] Mean corpuscular hemoglobin concentration (MCHC) determinationOrdered By: Avni Cash on 12-20-2024 MCHC (RBC) [Mass/Vol] 35.4 g/dL 32-36 [facility] Mean corpuscular hemoglobin concentration (MCHC) determination 35.4 g/dL 32-36 [facility] Mean platelet volume determi nationOrdered By: Avni Cash on 12-20-2024 Platelet mean volume (Bld) [Entitic vol] 9.3 fL 6.2-12.0 [facility] Mean platelet volume determination 9.3 fl 6.2-12.0 [facility] Microscopic analysis of urin e for red blood cells (RBC)Ordered By: Avni Cash on 12-20-2024 Microscopic analysis of urine for red blood cells (RBC) 0-5 SEEN /hpf 0-5 [facility] Monocyte percentageOrdered B y: Avni Cash on 12-20-2024 Monocytes/100 WBC (Bld) 5.3 % 0-10 [facility] Monocyte percentage 5.3 % 0-10 [facility] Mucus LM Ql (Urine sed)Order ed By: Avni Cash on 12-20-2024 Mucus Ql (Urine sed) 0 SEEN /hpf [facility] Neutrophil percentageOrdered By: Avni Cash on 12-20-2024 Neutrophils/100 WBC (Bld) 78.5 % High 47-70 [facility] Neutrophil percentage 78.5 % High 47-70 [facility] Nitrite Test strip Ql (U)Ord ered By: Avni Cash on 12-20-2024 Nitrite Ql (U) Negative Negative [facility] No Panel InformationOrdered By: Avni Cash on 12-20-2024 8 U/L Low 15-37 [facility] Nucleated red blood cell per centageOrdered By: Avni Cash on 12-20-2024 Nucleated RBC/100 WBC (Bld) [Ratio] 0 % 0-5 [facility] Nucleated red blood cell percentage 0 % 0-5 [facility] Platelet countOrdered By: Vitor Cash on 12-20-2024 Platelets (Bld) [#/Vol] 281 10*3/uL 150-450 [facility] Platelet count 281 K/mm3 150-450 [facility] Potassium measurementOrdered By: Avni Cash on 12-20-2024 Potassium [Moles/Vol] 4.3 mmol/L 3.5-5.1 [facility] Potassium measurement 4.3 mmol/L 3.5-5.1 [facility] Protein Test strip Ql (U)Ord ered By: Avni Cash on 12-20-2024 Protein Ql (U) Negative Negative [facility] RBC Auto (Bld) [#/Vol]Ordere d By: Avni Cash on 12-20-2024 RBC (Bld) [#/Vol] 4.95 10*6/uL 4.6-6.2 [facility] Automated blood erythrocyte count 4.95 M/mm3 4.6-6.2 [facility] Serum anion gap measurementO rdered By: Avni Cash on 12-20-2024 Anion gap [Moles/Vol] 5 mmol/L 5-15 [facility] Serum anion gap measurement 5 5-15 [facility] Serum globulin measurementOr dered By: Avni Cash on 12-20-2024 Globulin (S) [Mass/Vol] 4.1 g/dL 2.2-4.2 [facility] Serum globulin measurement 4.1 g/dL 2.2-4.2 [facility] Serum or plasma alanine wagoner otransferase (ALT) measurementOrdered By: Avni Cash on 12-20-2024 ALT [Catalytic activity/Vol] 16 U/L 16-61 [facility] Serum or plasma albumin yayo urement (mass/volume)Ordered By: Avni Cash on 12-20-2024 Albumin [Mass/Vol] 3.4 g/dL 3.2-5.0 [facility] Serum or plasma alkaline andrzej sphatase measurementOrdered By: Avni Cash on 12-20-2024 ALP [Catalytic activity/Vol] 117 U/L 45-117 [facility] Serum or plasma calcium yayo urement (mass/volume)Ordered By: Avni Cash on 12-20-2024 Calcium [Mass/Vol] 9.7 mg/dL 8.5-10.1 [facility] Serum or plasma creatinine m easurement (mass/volume)Ordered By: Avni Cash on 12-20-2024 Creatinine [Mass/Vol] 0.89 mg/dL 0.70-1.30 [facility] Comment on above: The validity of the calculated GFR & GFRAA in patients over 70 years has not been determined. Clinical correlation is essential. Serum or plasma urea nitroge n measurement (mass/volume)Ordered By: Avni Cash on 12-20-2024 Urea nitrogen [Mass/Vol] 10 mg/dL 7-18 [facility] Sodium levelOrdered By: Avni Cash on 12-20-2024 Sodium [Moles/Vol] 135 mmol/L Low 136-145 [facility] Sodium level 135 mmol/L Low 136-145 [facility] Specific gravity (U) [Rel de nsity]Ordered By: Avni Cash on 12-20-2024 Urine specific gravity measurement 1.010 1.002-1.030 [facility] Squamous epithelial cells de tection in urine sediment by light microscopyOrdered By: Avni Cash on 12-20-2024 Epithelial cells.squamous LM Ql (Urine sed) 0 SEEN /hpf 0-5 [facility] Squamous epithelial cells detection in urine sediment by light microscopy 0 SEEN /hpf [facility] Total proteinOrdered By: Geovani Cash on 12-20-2024 Protein [Mass/Vol] 7.5 g/dL 6.4-8.2 [facility] Total protein 7.5 g/dL 6.4-8.2 [facility] Urea nitrogen [Mass/Vol]Orde red By: Avni Cash on 12-20-2024 Serum or plasma urea nitrogen measurement (mass/volume) 10 mg/dL 05-17 [facility] Urinalysis, Completeon 12-20 CAST,HYALINE 0-5 SEEN Normal 0-5 [facility] Comment on above: Order Comment: CLEAN CATCH Performed By: #### L 100.0100, L500.4050 #### [facility] [address] [place], [address] RBC 0-5 SEEN Normal 0-5 [facility] Comment on above: Order Comment: CLEAN CATCH Performed By: #### L 100.0100, L500.4050 #### [facility] [address] [place], [address] WBC 0-5 SEEN Normal 0-5 [facility] Comment on above: Order Comment: CLEAN CATCH Performed By: #### L 100.0100, L500.4050 #### [facility] [address] [place], [address] YEAST 1+ /hpf Normal None Seen [facility] Comment on above: Order Comment: CLEAN CATCH Performed By: #### L 100.0100, L500.4050 #### [facility] [address] [place], [address] BACTERIA 0 SEEN Normal None Seen [facility] Comment on above: Order Comment: CLEAN CATCH Performed By: #### L 100.0100, L500.4050 #### [facility] [address] [place], [address] EPI,SQUAMOUS 0 SEEN Normal 0-5 [facility] Comment on above: Order Comment: CLEAN CATCH Performed By: #### L 100.0100, L500.4050 #### [facility] [address] [place], [address] Mucus Ql (Urine sed) 0 SEEN Normal [facility] Comment on above: Order Comment: CLEAN CATCH Performed By: #### L 100.0100, L500.4050 #### [facility] [address] [place], [address] Urine blood detectionOrdered By: Avni Cash on 12-20-2024 Urine blood detection 10 /ul High Negative [facility] Urine clarityOrdered By: Geovani Cash on 12-20-2024 Clarity (U) Clear Clear [facility] Urine color determinationOrd ered By: Avni Cash on 12-20-2024 Color (U) Yellow Yellow [facility] Urine glucose detectionOrder ed By: Avni Cash on 12-20-2024 Glucose Ql (U) 1000 mg/dl High Normal [facility] Urine leukocyte esterase det ection by dipstickOrdered By: Avni Cash on 12-20-2024 Leukocyte esterase Test strip Ql (U) Negative Negative [facility] Urine pHOrdered By: Avni jiang on 12-20-2024 pH (U) 5.0 [pH] 5.0 - 8.0 [facility] Urine sediment bacteria coun t by microscopy (number/high power field)Ordered By: Avni Cash on 12-20-2024 Bacteria LM.HPF (Urine sed) [#/Area] 0 /[HPF] None Seen [facility] Urine sediment yeast count b y microscopy (number/high powered field)Ordered By: Avni Cash on 12-20-2024 Yeast LM.HPF (Urine sed) [#/Area] 1 /[HPF] None Seen [facility] Urine specific gravity measu rementOrdered By: Avni Cash on 12-20-2024 Specific gravity (U) [Rel density] 1.010 1.002-1.030 [facility] Urine total bilirubin detect ion by test stripOrdered By: Avni Cash on 12-20-2024 Urine total bilirubin detection by test strip Negative Negative [facility] Urine urobilinogen measureme ntOrdered By: Avni Cash on 12-20-2024 Urobilinogen Ql (U) Normal mg/dl Normal [facility] Urobilinogen Ql (U)Ordered B y: Avni Cash on 12-20-2024 Urine urobilinogen measurement Normal mg/dl Normal [facility] White blood cell (WBC) count Ordered By: Avni Cash on 12-20-2024 WBC (Bld) [#/Vol] 8.4 10*3/uL 4.4-11.0 [facility] White blood cell (WBC) count 8.4 K/mm3 4.4-11.0 [facility] White blood cell countOrdere d By: Avni Cash on 12-20-2024 White blood cell count 0-5 SEEN /hpf 0-5 [facility] White blood cell count 0-5 SEEN /hpf 0-5 [facility] Yeast LM.HPF (Urine sed) [#/ Area]Ordered By: Avni Cash on 12-20-2024 Urine sediment yeast count by microscopy (number/high powered field) 1+ /hpf None Seen [facility] pH (U)Ordered By: Avni pena on 12-20-2024 Urine pH 5.0 5.0 - 8.0 [facility] CNOVon 12-14-2024 CNOV Office Visit (UCWSTR ) JERALD YODER ([id number]) 1960 M Date Time Provider Department 12/14/24 9:30 AM [facility] During your visit today, we recorded the following information about you: Temperature Pulse Respiration Blood pressure 97.1 degrees 77/minute 18/minute 105/70 Weight 98.7 kg Ion Alfaro APRN.SEISMOLOGY TECHNICAL OFFICER 12/14/2024 9:40 AM Signed This note was created using [employer]. Subjective Jerald Yoder is a 64 year [...] - CETIRIZINE 10 MG TABLET Ion Alfaro APRN.SEISMOLOGY TECHNICAL OFFICER Allergies As of Date: 12/14/2024 Noted Allergy Reaction BEE STING 06/22/2011 7 - Swelling BENEDRYL (DIPHENHYDRAMINE) 06/22/2011 7 - Swelling PENICILLINS 06/22/2011 2 - Rash Date Reviewed: 12/14/2024 Reviewed by: Ion Alfaro APRN.SEISMOLOGY TECHNICAL OFFICER - Fully Assessed Reason for Visit: Ear Problem [38] Cmt: Bilateral clogged x1 day Primary Visit Diagnosis:Eustachian tube dysfunction, bilateral [H69.93] Order(s):fluticasone (FLONASE ALLERGY RELIEF) 50 mcg/actuation nasal sprayUse 1 [place] in each nostril once daily.Disp: 9.9 mLRfl: 0 cetirizine (ZYRTEC) 10 mg tabletTake 1 tablet by mouth once daily for 14 days.Disp: 14 tabletRfl: 0 Prescriptions as of 12/14/2024 - fluticasone (FLONASE ALLERGY RELIEF) 50 mcg/actuation nasal spray Use 1 [place] in each nostril once daily. - cetirizine [...] before breakfast. - flash glucose scanning reader (iGoSTYLE CLAUDIA 14 DAY READER) misc 1 Device four times daily. - flash glucose sensor (FREESTYLE CLAUDIA 14 DAY SENSOR) kit 1 Device four times daily. - Insulin Syringe-Needle U-100 0.5 mL 31 gauge x 5/16 syrg Use once daily with Lantus - blood sugar diagnostic (FREESTYLE LITE STRIPS) test strip Test blood sugar(s) 4 times daily. Dx: 250.02. (more content not included)... Normal [facility] ALP [Catalytic activity/Vol] Ordered By: Barry Mathew on 12-08-2024 Serum or plasma alkaline phosphatase measurement 98 U/L 45-117 [facility] ALT [Catalytic activity/Vol] Ordered By: Barry Mathew on 12-08-2024 Serum or plasma alanine aminotransferase (ALT) measurement 16 U/L 16-61 [facility] Absolute lymphocyte countOrd ered By: Barry Mathew on 12-08-2024 Lymphocytes Auto (Unsp spec) [#/Vol] 1.25 10*3/uL 0.83-4.51 [facility] Absolute neutrophil countOrd ered By: Barry Mathew on 12-08-2024 Neutrophils (Bld) [#/Vol] 4.1 10*3/uL 2.0-7.7 [facility] Absolute neutrophil count 4.1 X10^3/uL 2.0-7.7 [facility] Albumin [Mass/Vol]Ordered By : Barry Mathew on 12-08-2024 Serum or plasma albumin measurement (mass/volume) 3.5 g/dL 3.2-5.0 [facility] Albumin to globulin ratioOrd ered By: Barry Mathew on 12-08-2024 Albumin/Globulin [Mass ratio] 0.9 {ratio} 0.9-2.4 [facility] Albumin to globulin ratio 0.9 RATIO 0.9-2.4 [facility] Automated lymphocyte count a s percentage of total leukocytesOrdered By: Barry Mathew on 12-08-2024 Lymphocytes/100 WBC Auto (Unsp spec) 20.7 % 19-41 [facility] Bacteria LM.HPF (Urine sed) [#/Area]Ordered By: Barry Mathew on 12-08-2024 Urine sediment bacteria count by microscopy (number/high power field) 1+ /hpf None Seen [facility] Basophil percentageOrdered B y: Barry Mathew on 12-08-2024 Basophils/100 WBC (Bld) 0.7 % 0-1 [facility] Basophil percentage 0.7 % 0-1 [facility] Bilirubin Test strip Ql (U)O rdered By: Barry Mathew on 12-08-2024 Bilirubin Ql (U) Negative Negative [facility] Bilirubin, totalOrdered By: Barry Mathew on 12-08-2024 Bilirubin [Mass/Vol] 0.40 mg/dL 0.20-1.00 [facility] Comment on above: For patients on eltr ombopag therapy, use of Dimension [place] TBIL is not recommended. Bilirubin, total 0.40 mg/dL 0.20-1.00 [facility] Blood urea nitrogen (BUN)/cr eatinine ratioOrdered By: Barry Mathew on 12-08-2024 Urea nitrogen/Creatinine [Mass ratio] 14.2 mg/mg - [facility] Blood urea nitrogen (BUN)/creatinine ratio 14.2 RATIO 08-19 [facility] CBC W/Diff, Automatedon Absolute Lymph 1.25 X10 3/uL Normal 0.83-4.51 [facility] Comment on above: Performed By: #### L 100.0100, L500.7290 #### [facility] [address] [place], [place], [address] Absolute Neut 4.1 X10 3/uL Normal 2.0-7.7 [facility] Comment on above: Performed By: #### L 100.0100, L500.4050 #### [facility] [address] [place], [address] Basophils/100 WBC (Bld) 0.7 % Normal 0-1 [facility] Comment on above: Performed By: #### L 100.0100, L500.4050 #### [facility] [address] [place], [address] Eosinophils/100 WBC (Bld) 3.8 % Normal 0-5 [facility] Comment on above: Performed By: #### L 100.0100, L500.4050 #### [facility] [address] [place], [address] Erythrocyte distribution width (RBC) [Ratio] 14.0 % Normal 11.6-14.6 [facility] Comment on above: Performed By: #### L 100.0100, L500.4050 #### [facility] [address] [place], [address] Hematocrit (Bld) [Volume fraction] 38.6 % Low 40-54 [facility] Comment on above: Performed By: #### L 100.0100, L500.4050 #### [facility] [address] [place], [address] Hemoglobin (Bld) [Mass/Vol] 13.6 g/dL Normal 13.0-16.5 [facility] Comment on above: Performed By: #### L 100.0100, L500.4050 #### [facility] [address] [place], [address] IG% 0.500 Normal 0.0-0.9 [facility] Comment on above: Result Comment: IG% - Immature Granulocytes (promyelocytes, myelocytes and metamyelocytes) > 1% indicates that a LEFT SHIFT is Present. Performed By: #### L 100.0100, L500.4050 #### [facility] [address] [place], [address] Lymphocytes/100 WBC (Bld) 20.7 % Normal 19-41 [facility] Comment on above: Performed By: #### L 100.0100, L500.4050 #### [facility] [address] [place], [address] MCH (RBC) [Entitic mass] 28.5 pg Normal 27.0-32.0 [facility] Comment on above: Performed By: #### L 100.0100, L500.4050 #### [facility] [address] [place], [address] MCHC (RBC) [Mass/Vol] 35.2 g/dL Normal 32-36 [facility] Comment on above: Performed By: #### L 100.0100, L500.4050 #### [facility] [address] [place], [address] MCV (RBC) [Entitic vol] 80.9 fL Normal 80-94 [facility] Comment on above: Performed By: #### L 100.0100, L500.4050 #### [facility] [address] [place], [address] Monocytes/100 WBC (Bld) 7.1 % Normal 0-10 [facility] Comment on above: Performed By: #### L 100.0100, L500.4050 #### [facility] [address] [place], [address] Neutrophils/100 WBC (Bld) 67.2 % Normal 47-70 [facility] Comment on above: Performed By: #### L 100.0100, L500.4050 #### [facility] [address] [place], [address] Nucleated RBC (Bld) [#/Vol] 0 10*3/uL Normal 0-5 [facility] Comment on above: Performed By: #### L 100.0100, L500.4050 #### [facility] [address] [place], [address] Platelet mean volume (Bld) [Entitic vol] 8.9 fL Normal 6.2-12.0 [facility] Comment on above: Performed By: #### L 100.0100, L500.4050 #### [facility] [address] [place], [address] Platelets (Bld) [#/Vol] 226 10*3/uL Normal 150-450 [facility] Comment on above: Performed By: #### L 100.0100, L500.4050 #### [facility] [address] [place], [address] RBC (Bld) [#/Vol] 4.77 10*6/uL Normal 4.6-6.2 [facility] Comment on above: Performed By: #### L 100.0100, L500.4050 #### [facility] [address] [place], [address] RDW SD 40.5 fl Normal 35.1-43.9 [facility] Comment on above: Performed By: #### L 100.0100, L500.4050 #### [facility] [address] [place], [address] WBC (Bld) [#/Vol] 6.0 10*3/uL Normal 4.4-11.0 [facility] Comment on above: Performed By: #### L 100.0100, L500.4050 #### [facility] [address] [place], [address] Calcium [Mass/Vol]Ordered By : Barry Mathew on 12-08-2024 Serum or plasma calcium measurement (mass/volume) 9.0 mg/dL 8.5-10.1 [facility] Carbon dioxide measurementOr dered By: Barry Mathew on 12-08-2024 CO2 [Moles/Vol] 30.0 mmol/L 21.0-32.0 [facility] Carbon dioxide measurement 30.0 mmol/L 21.0-32.0 [facility] Chloride measurementOrdered By: Barry Mathew on 12-08-2024 Chloride [Moles/Vol] 100 mmol/L 98-107 [facility] Chloride measurement 100 mmol/L 98-107 [facility] Clarity (U)Ordered By: Barry Mathew on 12-08-2024 Urine clarity Clear Clear [facility] Color (U)Ordered By: Barry gordon on 12-08-2024 Urine color determination Yellow Yellow [facility] Comprehensive Metabolic Prof ilon 12-08-2024 Albumin [Mass/Vol] 3.5 g/dL Normal 3.2-5.0 [facility] Comment on above: Performed By: #### L 100.0100, L500.4050 #### [facility] [address] [place], [address] Albumin/Globulin [Mass ratio] 0.9 {ratio} Normal 0.9-2.4 [facility] Comment on above: Performed By: #### L 100.0100, L500.4050 #### [facility] [address] [place], [address] ALK P 98 U/L Normal 45-117 [facility] Comment on above: Performed By: #### L 100.0100, L500.4050 #### [facility] [address] [place], [address] ALT [Catalytic activity/Vol] 16 U/L Normal 16-61 [facility] Comment on above: Performed By: #### L 100.0100, L500.4050 #### [facility] [address] [place], [address] AST [Catalytic activity/Vol] 10 U/L Low 15-37 [facility] Comment on above: Performed By: #### L 100.0100, L500.4050 #### [facility] [address] [place], [address] Bilirubin [Mass/Vol] 0.40 mg/dL Normal 0.20-1.00 [facility] Comment on above: Result Comment: For patients on eltrombopag therapy, use of Dimension [place] TBIL is not recommended. Performed By: #### L 100.0100, L500.4050 #### [facility] [address] [place], [address] BUN/CRE 14.2 RATIO Normal 10-20 [facility] Comment on above: Performed By: #### L 100.0100, L500.4050 #### [facility] [address] [place], [address] CA,Total 9.0 mg/dL Normal 8.5-10.1 [facility] Comment on above: Performed By: #### L 100.0100, L500.4050 #### [facility] [address] [place], [address] Chloride [Moles/Vol] 100 mmol/L Normal 98-107 [facility] Comment on above: Performed By: #### L 100.0100, L500.4050 #### [facility] [address] [place], [address] CO2 [Moles/Vol] 30.0 mmol/L Normal 21.0-32.0 [facility] Comment on above: Performed By: #### L 100.0100, L500.4050 #### [facility] [address] [place], [address] Creatinine [Mass/Vol] 0.85 mg/dL Normal 0.70-1.30 [facility] Comment on above: Result Comment: The validity of the calculated GFR GFRAA in patients over 70 years has not been determined. Clinical correlation is essential. Performed By: #### L 100.0100, L500.4050 #### [facility] [address] [place], [address] ECRCL 110.65 ml/min Normal [facility] Comment on above: Performed By: #### L 100.0100, L500.4050 #### [facility] [address] [place], [address] EST GFR - AA 117 mL/min Normal >60 [facility] Comment on above: Result Comment: Afri can Mosoth[place] GFR Calc Performed By: #### L 100.0100, L500.4050 #### [facility] [address] [place], [address] GAP 6 Normal 5-15 [facility] Comment on above: Performed By: #### L 100.0100, L500.4050 #### [facility] [address] [place], [address] GFR/1.73 sq M.predicted among non-blacks MDRD (S/P/Bld) [Vol rate/Area] 97 mL/min/{1.73_m2} Normal >60 [facility] Comment on above: Result Comment: Non- GFR Calc Performed By: #### L 100.0100, L500.4050 #### [facility] [address] [place], [address] Globulin (S) [Mass/Vol] 3.8 g/dL Normal 2.2-4.2 [facility] Comment on above: Performed By: #### L 100.0100, L500.4050 #### [facility] [address] [place], [address] Glucose [Mass/Vol] 395 mg/dL High 74-106 [facility] Comment on above: Result Comment: Gluc ose result greater than or equal to 200 mg/dL suggests DIABETES MELLITUS per A.D.A. criteria. Performed By: #### L 100.0100, L500.4050 #### [facility] [address] [place], [address] Potassium [Moles/Vol] 3.9 mmol/L Normal 3.5-5.1 [facility] Comment on above: Performed By: #### L 100.0100, L500.4050 #### [facility] [address] [place], [address] Sodium [Moles/Vol] 136 mmol/L Normal 136-145 [facility] Comment on above: Performed By: #### L 100.0100, L500.4050 #### [facility] [address] [place], [address] T PROT 7.3 g/dL Normal 6.4-8.2 [facility] Comment on above: Performed By: #### L 100.0100, L500.4050 #### [facility] [address] [place], [address] Urea nitrogen [Mass/Vol] 12 mg/dL Normal 7-18 [facility] Comment on above: Performed By: #### L 100.0100, L500.4050 #### [facility] [address] [place], [address] Creatinine [Mass/Vol]Ordered By: Barry Mathew on 12-08-2024 Serum or plasma creatinine measurement (mass/volume) 0.85 mg/dL 0.70-1.30 [facility] Emergency Department Summary on 12-08-2024 Emergency Department Summary [facility] Medical Records Department [address] [place] [address] Emergency Department Summary 12/08/24 MR#: [id number] Acct: [id number] Name: JERALD YODER Rep #: [id number] : 1960 64 From: Barry Mathew MD [...] other exacerbating or alleviating factors. [facility] Medical History Partial traumatic amputation of left [...] 86 Respir (more content not included)... Normal [facility] Eosinophil percentageOrdered By: Barry Mathew on 12-08-2024 Eosinophils/100 WBC (Bld) 3.8 % 0-5 [facility] Eosinophil percentage 3.8 % 0-5 [facility] Epithelial cells.squamous LM Ql (Urine sed)Ordered By: Barry Mathew on 12-08-2024 Squamous epithelial cells detection in urine sediment by light microscopy 0-5 SEEN /hpf 0-5 [facility] Erythrocyte distribution wid th (RBC) [Ratio]Ordered By: Barry Mathew on 12-08-2024 Erythrocyte distribution width ratio 14.0 % 11.6-14.6 [facility] Erythrocyte distribution width standard deviation 40.5 fl 35.1-43.9 [facility] Erythrocyte distribution wid th ratioOrdered By: Barry Mathew on 12-08-2024 Erythrocyte distribution width (RBC) [Ratio] 14.0 % 11.6-14.6 [facility] Erythrocyte distribution wid th standard deviationOrdered By: Barry Mathew on 12-08-2024 Erythrocyte distribution width (RBC) [Ratio] 40.5 fl 35.1-43.9 [facility] Estimated glomerular filtrat ion rate (GFR) AmericanOrdered By: Barry Mathew on 12-08-2024 Estimated glomerular filtration rate (GFR) 117 mL/min >60 [facility] Estimation of creatinine edinson aranceOrdered By: Barry Mathew on 12-08-2024 Estimation of creatinine clearance 110.65 ml/min [facility] Glomerular filtration rate ( GFR) estimationOrdered By: Barry Mathew on 12-08-2024 GFR/1.73 sq M.predicted among non-blacks MDRD (S/P/Bld) [Vol rate/Area] 97 mL/min/{1.73_m2} >60 [facility] Comment on above: Non- GFR Calc Glomerular filtration rate (GFR) estimation 97 mL/min >60 [facility] Glucose Ql (U)Ordered By: Franco Mathew on 12-08-2024 Urine glucose detection 1000 mg/dl High Normal W [facility] Glucose measurementOrdered B y: Barry Mathew on 12-08-2024 Glucose [Mass/Vol] 395 mg/dL High 74-106 [facility] Comment on above: Glucose result great er than or equal to 200 mg/dLsuggests DIABETES MELLITUS per A.D.A. criteria. Glucose measurement 395 mg/dL High 74-[facility] Hematocrit Auto (Bld) [Volum e fraction]Ordered By: Barry Mathew on 12-08-2024 Hematocrit (Bld) [Volume fraction] 38.6 % Low 40-54 [facility] Automated blood hematocrit (percentage) 38.6 % Low 40-54 [facility] Hemoglobin measurementOrdere d By: Barry Mathew on 12-08-2024 Hemoglobin (Bld) [Mass/Vol] 13.6 g/dL 13.0-16.5 [facility] Hemoglobin measurement 13.6 g/dL 13.0-16.5 [facility] Immature granulocytes/100 WB C Auto (Bld)Ordered By: Barry Mathew on 12-08-2024 Immature granulocytes/100 WBC (Bld) 0.500 % 0.0-0.9 [facility] Comment on above: IG% - Immature Granu locytes (promyelocytes, myelocytes and metamyelocytes) > 1% indicates that a LEFT SHIFT is Present. Automated immature granulocyte percentage 0.500 % 0.0-0.9 [facility] Influenza virus A and B and SARS-CoV-2 (COVID-19) and Respiratory syncytial virus RNAOrdered By: Barry Mathew on 12-08-2024 SARS-CoV-2 (COVID-19) RNA IOANA+probe Ql (Unsp spec) [facility] Ketones Test strip Ql (U)Ord ered By: Barry Mathew on 12-08-2024 Ketones Ql (U) Negative Negative [facility] - Chemistry and C hemistry - challengeOrdered By: Barry Mathew on 12-08-2024 AST [Catalytic activity/Vol] 10 U/L Low 15-37 [facility] Lymphocytes Auto (Unsp spec) [#/Vol]Ordered By: Barry Mathew on 12-08-2024 Absolute lymphocyte count 1.25 X10^3/uL 0.83-4.51 [facility] Lymphocytes/100 WBC Auto (Un sp spec)Ordered By: Barry Mathew on 12-08-2024 Automated lymphocyte count as percentage of total leukocytes 20.7 % 19-41 [facility] M100.678on 12-08-2024 M100.678 Pending SARS-CoV-2 (COVID 19) Negative INFLUENZA A Negative INFLUENZA B Negative RSV PCR Negative Normal [facility] Comment on above: Performed By: #### L 400.0001, M100.678 ####[facility] [id number] [place], [address] MCV (RBC) [Entitic vol]Order ed By: Barry Mathew on 12-08-2024 MCV (mean corpuscular volume) determination 80.9 fL 80-94 [facility] MCV (mean corpuscular volume ) determinationOrdered By: Barry Mathew on 12-08-2024 MCV (RBC) [Entitic vol] 80.9 fL 80-94 [facility] Mean corpuscular hemoglobin (MCH) determinationOrdered By: Barry Mathew on 12-08-2024 MCH (RBC) [Entitic mass] 28.5 pg 27.0-32.0 [facility] Mean corpuscular hemoglobin (MCH) determination 28.5 pg 27.0-32.0 [facility] Mean corpuscular hemoglobin concentration (MCHC) determinationOrdered By: Barry Mathew on 12-08-2024 MCHC (RBC) [Mass/Vol] 35.2 g/dL 32-36 [facility] Mean corpuscular hemoglobin concentration (MCHC) determination 35.2 g/dL -36 [facility] Mean platelet volume determi nationOrdered By: Barry Mathew on 12-08-2024 Platelet mean volume (Bld) [Entitic vol] 8.9 fL 6.2-12.0 [facility] Mean platelet volume determination 8.9 fl 6.2-12.0 [facility] Microscopic analysis of urin e for red blood cells (RBC)Ordered By: Barry Mathew on 12-08-2024 Microscopic analysis of urine for red blood cells (RBC) 0 SEEN /hpf 0-5 [facility] Monocyte percentageOrdered B y: Barry Mathew on 12-08-2024 Monocytes/100 WBC (Bld) 7.1 % 0-10 [facility] Monocyte [facility] 7.1 % 0-[facility] Mucus LM Ql (Urine sed)Order ed By: Barry Mathew on 12-08-2024 Mucus Ql (Urine sed) 0 SEEN /hpf [facility] Neutrophil percentageOrdered By: Barry Mathew on 12-08-2024 Neutrophils/100 WBC (Bld) 67.2 % 47-70 [facility] Neutrophil percentage 67.2 % 47-70 [facility] Nitrite Test strip Ql (U)Ord ered By: Barry Mathew on 12-08-2024 Nitrite Ql (U) Negative Negative [facility] No Panel InformationOrdered By: Barry Mathew on 12-08-2024 10 U/L Low 15-37 [facility] Nucleated red blood cell per centageOrdered By: Barry Mathew on 12-08-2024 Nucleated RBC/100 WBC (Bld) [Ratio] 0 % 0-5 [facility] Nucleated red blood cell percentage 0 % 0-5 [facility] Platelet countOrdered By: Franco Mathew on 12-08-2024 Platelets (Bld) [#/Vol] 226 10*3/uL 150-450 [facility] Platelet count 226 K/mm3 150-450 [facility] Potassium measurementOrdered By: Barry Mathew on 12-08-2024 Potassium [Moles/Vol] 3.9 mmol/L 3.5-5.1 [facility] Potassium measurement 3.9 mmol/L 3.5-5.1 [facility] Protein Test strip Ql (U)Ord ered By: Barry Mathew on 12-08-2024 Protein Ql (U) Negative Negative [facility] RBC Auto (Bld) [#/Vol]Ordere d By: Barry Mathew on 02-08-2025 RBC (Bld) [#/Vol] 4.77 10*6/uL 4.6-6.2 [facility] Automated blood erythrocyte count 4.77 M/mm3 4.6-6.2 [facility] Serum anion gap measurementO rdered By: Barry Mathew on 12-08-2024 Anion gap [Moles/Vol] 6 mmol/L 5-15 [facility] Serum anion gap measurement 6 5-15 [facility] Serum globulin measurementOr dered By: Barry Mathew on 12-08-2024 Globulin (S) [Mass/Vol] 3.8 g/dL 2.2-4.2 [facility] Serum globulin measurement 3.8 g/dL 2.2-4.2 [facility] Serum or plasma alanine wagoner otransferase (ALT) measurementOrdered By: Barry Mathew on 12-08-2024 ALT [Catalytic activity/Vol] 16 U/L 16-61 [facility] Serum or plasma albumin yayo urement (mass/volume)Ordered By: Barry Mathew on 12-08-2024 Albumin [Mass/Vol] 3.5 g/dL 3.2-5.0 [facility] [facility] Serum or plasma alkaline andrzej sphatase measurementOrdered By: Barry Mathew on 12-08-2024 ALP [Catalytic activity/Vol] 98 U/L 45-117 [facility] Serum or plasma calcium yayo urement (mass/volume)Ordered By: Barry Mathew on 12-08-2024 Calcium [Mass/Vol] 9.0 mg/dL 8.5-10.1 [facility] Serum or plasma creatinine m easurement (mass/volume)Ordered By: Barry Mathew on 12-08-2024 Creatinine [Mass/Vol] 0.85 mg/dL 0.70-1.30 [facility] Comment on above: The validity of the calculated GFR & GFRAA in patients over 70 years has not been determined. Clinical correlation is essential. Serum or plasma urea nitroge n measurement (mass/volume)Ordered By: Barry Mathew on 12-08-2024 Urea nitrogen [Mass/Vol] 12 mg/dL 7-18 [facility] Sodium levelOrdered By: Barry Mathew on 12-08-2024 Sodium [Moles/Vol] 136 mmol/L 136-145 [facility] Sodium level 136 mmol/L 136-145 [facility] Specific gravity (U) [Rel de nsity]Ordered By: Barry Mathew on 12-08-2024 Urine specific gravity measurement 1.010 1.002-1.030 [facility] Squamous epithelial cells de tection in urine sediment by light microscopyOrdered By: Barry Mathew on 12-08-2024 Epithelial cells.squamous LM Ql (Urine sed) 0-5 SEEN /hpf 0-5 [facility] Total proteinOrdered By: Silva Mathew on 12-08-2024 Protein [Mass/Vol] 7.3 g/dL 6.4-8.2 [facility] Total protein 7.3 g/dL 6.4-8.2 [facility] Urea nitrogen [Mass/Vol]Orde red By: Barry Mathew on 12-08-2024 Serum or plasma urea nitrogen measurement (mass/volume) 12 mg/dL 7-18 [facility] Urinalysis, Completeon 12-08 BACTERIA 1+ /hpf Normal None Seen [facility] Comment on above: Order Comment: NO CTOR TO SPECIFY Performed By: #### L 400.0001, ####[facility] [address] [place], [place], [id number] EPI,SQUAMOUS 0-5 SEEN Normal 0-5 [facility] Comment on above: Order Comment: NO CTOR TO SPECIFY Performed By: #### L 400.0001, 8 ####[facility] [address] [place], [address] RBC 0 SEEN Normal 0-5 [facility] Comment on above: Order Comment: NO CTOR TO SPECIFY Performed By: #### L 400.0001, 8 ####[facility] [address] [place], [address] Mucus Ql (Urine sed) 0 SEEN Normal [facility] Comment on above: Order Comment: NO CTOR TO SPECIFY Performed By: #### L 400.0001, 678 ####[facility] [address] [place], [place], [address] WBC 0 SEEN Normal 0-5 [facility] Comment on above: Order Comment: COLLE CTOR TO SPECIFY Performed By: #### L 400.0001, M100.678 ####[facility] [address] [place], [place], [id number] Urine clarityOrdered By: Silva Mathew on 12-08-2024 Clarity (U) Clear Clear [facility] Urine color determinationOrd ered By: Barry Mathew on 12-08-2024 Color (U) Yellow Yellow [facility] Urine glucose detectionOrder ed By: Barry Mathew on 12-08-2024 Glucose Ql (U) 1000 mg/dl High Normal [facility] Urine leukocyte esterase det ection by dipstickOrdered By: Barry Mathew on 12-08-2024 Leukocyte esterase Test strip Ql (U) Negative Negative [facility] Urine pHOrdered By: Barry otoole on 12-08-2024 pH (U) 6.0 [pH] 5.0 - 8.0 [facility] Urine sediment bacteria coun t by microscopy (number/high power field)Ordered By: Barry Mathew on 12-08-2024 Bacteria LM.HPF (Urine sed) [#/Area] 1 /[HPF] None Seen [facility] Urine specific gravity measu rementOrdered By: Barry Mathew on 12-08-2024 Specific gravity (U) [Rel density] 1.010 1.002-1.030 [facility] Urine total bilirubin detect ion by test stripOrdered By: Barry Mathew on 12-08-2024 Urine total bilirubin detection by test strip Negative Negative [facility] Urine urobilinogen measureme ntOrdered By: Barry Mathew on 12-08-2024 Urobilinogen Ql (U) Normal mg/dl Normal [facility] Urobilinogen Ql (U)Ordered B y: Barry Mathew on 12-08-2024 Urine urobilinogen measurement Normal mg/dl Normal [facility] White blood cell (WBC) count Ordered By: Barry Mathew on 12-08-2024 WBC (Bld) [#/Vol] 6.0 10*3/uL 4.4-11.0 [facility] White blood cell (WBC) count 6.0 K/mm3 4.4-11.0 [facility] White blood cell countOrdere d By: Barry Mathew on 12-08-2024 White blood cell count 0 SEEN /hpf 0-5 [facility] White blood cell count 0 SEEN /hpf [facility] pH (U)Ordered By: Barry garcia on 12-08-2024 Urine pH 6.0 5.0 - 8.0 [facility] ALP [Catalytic activity/Vol] Ordered By: Pedro Krishnan on 11-27-2024 Serum or plasma alkaline phosphatase measurement 107 U/L 45-117 [facility] ALT [Catalytic activity/Vol] Ordered By: Pedro Krishnan on 11-27-2024 Serum or plasma alanine aminotransferase (ALT) measurement 16 U/L 16-61 [facility] Absolute lymphocyte countOrd ered By: Pedro Krishnan on 11-27-2024 Lymphocytes Auto (Unsp spec) [#/Vol] 1.51 10*3/uL 0.83-4.51 [facility] Absolute neutrophil countOrd ered By: Pedro Krishnan on 11-27-2024 Neutrophils (Bld) [#/Vol] 6.6 10*3/uL 2.0-7.7 [facility] Absolute neutrophil count 6.6 X10^3/uL 2.0-7.7 [facility] Albumin [Mass/Vol]Ordered By : Pedro Krishnan on 11-27-2024 Serum or plasma albumin measurement (mass/volume) 3.6 g/dL 3.2-5.0 [facility] Albumin to globulin ratioOrd ered By: Pedro Krishnan on 11-27-2024 Albumin/Globulin [Mass ratio] 1.0 {ratio} 0.9-2.4 [facility] Albumin to globulin ratio 1.0 RATIO 0.9-2.4 [facility] Automated lymphocyte count a s percentage of total leukocytesOrdered By: Pedro Krishnan on 11-27-2024 Lymphocytes/100 WBC Auto (Unsp spec) 16.8 % Low 19-41 [facility] Bacteria LM.HPF (Urine sed) [#/Area]Ordered By: Pedro Krishnan on 11-27-2024 Urine sediment bacteria count by microscopy (number/high power field) RARE /hpf None Seen [facility] Basophil percentageOrdered B y: Pedro Krishnan on 11-27-2024 Basophils/100 WBC (Bld) 0.7 % 0-1 [facility] Basophil percentage 0.7 % 0-1 [facility] Bilirubin Test strip Ql (U)O rdered By: Pedro Krishnan on 11-27-2024 Bilirubin Ql (U) Negative Negative [facility] Bilirubin, totalOrdered By: Pedro Krishnan on 11-27-2024 Bilirubin [Mass/Vol] 0.40 mg/dL 0.20-1.00 [facility] Comment on above: For patients on eltr ombopag therapy, use of Dimension [place] TBIL is not recommended. Bilirubin, total 0.40 mg/dL 0.20-1.00 [facility] Blood urea nitrogen (BUN)/cr eatinine ratioOrdered By: Pedro Krishnan on 11-27-2024 Urea nitrogen/Creatinine [Mass ratio] 12.7 mg/mg - [facility] Blood urea nitrogen (BUN)/creatinine ratio 12.7 RATIO 08-19 [facility] CBC W/Diff, Automatedon 11-01 Absolute Lymph 1.51 X10 3/uL Normal 0.83-4.51 [facility] Comment on above: Performed By: #### L 100.0100, L500.4050 #### [facility] [address] [place], [address] Absolute Neut 6.6 X10 3/uL Normal 2.0-7.7 [facility] Comment on above: Performed By: #### L 100.0100, L500.4050 #### [facility] [address] [place], [address] Basophils/100 WBC (Bld) 0.7 % Normal 0-1 [facility] Comment on above: Performed By: #### L 100.0100, L500.4050 #### [facility] [address] [place], [address] Eosinophils/100 WBC (Bld) 2.8 % Normal 0-5 [facility] Comment on above: Performed By: #### L 100.0100, L500.4050 #### [facility] [address] [place], [address] Erythrocyte distribution width (RBC) [Ratio] 14.2 % Normal 11.6-14.6 [facility] Comment on above: Performed By: #### L 100.0100, L500.4050 #### [facility] [address] [place], [address] Hematocrit (Bld) [Volume fraction] 41.1 % Normal 40-54 [facility] Comment on above: Performed By: #### L 100.0100, L500.4050 #### [facility] [address] [place], [address] Hemoglobin (Bld) [Mass/Vol] 14.2 g/dL Normal 13.0-16.5 [facility] Comment on above: Performed By: #### L 100.0100, L500.4050 #### [facility] [address] [place], [address] IG% 0.300 Normal 0.0-0.9 [facility] Comment on above: Result Comment: IG% - Immature Granulocytes (promyelocytes, myelocytes and metamyelocytes) > 1% indicates that a LEFT SHIFT is Present. Performed By: #### L 100.0100, L500.4050 #### [facility] [address] [place], [address] Lymphocytes/100 WBC (Bld) 16.8 % Low 19-41 [facility] Comment on above: Performed By: #### L 100.0100, L500.4050 #### [facility] [address] [place], [address] MCH (RBC) [Entitic mass] 28.2 pg Normal 27.0-32.0 [facility] Comment on above: Performed By: #### L 100.0100, L500.4050 #### [facility] [address] [place], [address] MCHC (RBC) [Mass/Vol] 34.5 g/dL Normal 32-36 [facility] Comment on above: Performed By: #### L 100.0100, L500.4050 #### [facility] [address] [place], [address] MCV (RBC) [Entitic vol] 81.7 fL Normal 80-94 [facility] Comment on above: Performed By: #### L 100.0100, L500.4050 #### [facility] [address] [place], [address] Monocytes/100 WBC (Bld) 5.5 % Normal 0-10 [facility] Comment on above: Performed By: #### L 100.0100, L500.4050 #### [facility] [address] [place], [address] Neutrophils/100 WBC (Bld) 73.9 % High 47-70 [facility] Comment on above: Performed By: #### L 100.0100, L500.4050 #### [facility] [address] [place], [address] Nucleated RBC (Bld) [#/Vol] 0 10*3/uL Normal 0-5 [facility] Comment on above: Performed By: #### L 100.0100, L500.4050 #### [facility] [address] [place], [address] Platelet mean volume (Bld) [Entitic vol] 9.3 fL Normal 6.2-12.0 [facility] Comment on above: Performed By: #### L 100.0100, L500.4050 #### [facility] [address] [place], [address] Platelets (Bld) [#/Vol] 231 10*3/uL Normal 150-450 [facility] Comment on above: Performed By: #### L 100.0100, L500.4050 #### [facility] [address] [place], [address] RBC (Bld) [#/Vol] 5.03 10*6/uL Normal 4.6-6.2 [facility] Comment on above: Performed By: #### L 100.0100, L500.4050 #### [facility] [address] [place], [address] RDW SD 41.3 fl Normal 35.1-43.9 [facility] Comment on above: Performed By: #### L 100.0100, L500.4050 #### [facility] [address] [place], [address] WBC (Bld) [#/Vol] 9.0 10*3/uL Normal 4.4-11.0 [facility] Comment on above: Performed By: #### L 100.0100, L500.4050 #### [facility] [address] [place], [address] Calcium [Mass/Vol]Ordered By : Pedro Krishnan on 11-27-2024 Serum or plasma calcium measurement (mass/volume) 8.8 mg/dL 8.5-10.1 [facility] Carbon dioxide measurementOr dered By: Pedro Krishnan on 11-27-2024 CO2 [Moles/Vol] 22.0 mmol/L 21.0-32.0 [facility] Carbon dioxide measurement 22.0 mmol/L 21.0-32.0 [facility] Chloride measurementOrdered By: Pedro Krishnan on 11-27-2024 Chloride [Moles/Vol] 101 mmol/L 98-107 [facility] Chloride measurement 101 mmol/L 98-107 [facility] Clarity (U)Ordered By: Pedro Krishnan on 11-27-2024 Urine clarity Clear Clear [facility] Color (U)Ordered By: Pedro persaud on 11-27-2024 Urine color determination Yellow Yellow [facility] Comprehensive Metabolic Prof ilon 11-27-2024 Albumin [Mass/Vol] 3.6 g/dL Normal 3.2-5.0 [facility] Comment on above: Performed By: #### L 100.0100, L500.4050 #### [facility] [address] [place], [address] Albumin/Globulin [Mass ratio] 1.0 {ratio} Normal 0.9-2.4 [facility] Comment on above: Performed By: #### L 100.0100, L500.4050 #### [facility] [address] [place], [address] ALK P 107 U/L Normal 45-117 [facility] Comment on above: Performed By: #### L 100.0100, L500.4050 #### [facility] [address] [place], [address] ALT [Catalytic activity/Vol] 16 U/L Normal 16-61 [facility] Comment on above: Performed By: #### L 100.0100, L500.4050 #### [facility] [address] [place], [address] AST [Catalytic activity/Vol] 11 U/L Low 15-37 [facility] Comment on above: Performed By: #### L 100.0100, L500.4050 #### [facility] [address] [place], [address] Bilirubin [Mass/Vol] 0.40 mg/dL Normal 0.20-1.00 [facility] Comment on above: Result Comment: For patients on eltrombopag therapy, use of Dimension [place] TBIL is not recommended. Performed By: #### L 100.0100, L500.4050 #### [facility] [address] [place], [address] BUN/CRE 12.7 RATIO Normal 10-20 [facility] Comment on above: Performed By: #### L 100.0100, L500.4050 #### [facility] [address] [place], [address] CA,Total 8.8 mg/dL Normal 8.5-10.1 [facility] Comment on above: Performed By: #### L 100.0100, L500.4050 #### [facility] [address] [place], [address] Chloride [Moles/Vol] 101 mmol/L Normal 98-107 [facility] Comment on above: Performed By: #### L 100.0100, L500.4050 #### [facility] [address] [place], [address] CO2 [Moles/Vol] 22.0 mmol/L Normal 21.0-32.0 [facility] Comment on above: Performed By: #### L 100.0100, L500.4050 #### [facility] [address] [place], [address] Creatinine [Mass/Vol] 0.94 mg/dL Normal 0.70-1.30 [facility] Comment on above: Result Comment: The validity of the calculated GFR GFRAA in patients over 70 years has not been determined. Clinical correlation is essential. Performed By: #### L 100.0100, L500.4050 #### [facility] [address] [place], [address] EST GFR - AA 103 mL/min Normal >60 [facility] Comment on above: Result Comment: Afri can [place] GFR Calc Performed By: #### L 100.0100, L500.4050 #### [facility] [address] [place], [address] GAP 10 Normal 5-15 [facility] Comment on above: Performed By: #### L 100.0100, L500.4050 #### [facility] [address] [place], [address] GFR/1.73 sq M.predicted among non-blacks MDRD (S/P/Bld) [Vol rate/Area] 86 mL/min/{1.73_m2} Normal >60 [facility] Comment on above: Result Comment: Non- GFR Calc Performed By: #### L 100.0100, L500.4050 #### [facility] [address] [place], [address] Globulin (S) [Mass/Vol] 3.7 g/dL Normal 2.2-4.2 [facility] Comment on above: Performed By: #### L 100.0100, L500.4050 #### [facility] [address] [place], [address] Glucose [Mass/Vol] 373 mg/dL High 74-106 [facility] Comment on above: Result Comment: Gluc ose result greater than or equal to 200 mg/dL suggests DIABETES MELLITUS per A.D.A. criteria. Performed By: #### L 100.0100, L500.4050 #### [facility] [address] [place], [address] Potassium [Moles/Vol] 3.8 mmol/L Normal 3.5-5.1 [facility] Comment on above: Performed By: #### L 100.0100, L500.4050 #### [facility] [address] [place], [address] Sodium [Moles/Vol] 133 mmol/L Low 136-145 [facility] Comment on above: Performed By: #### L 100.0100, L500.4050 #### [facility] [address] [place], [address] T PROT 7.3 g/dL Normal 6.4-8.2 [facility] Comment on above: Performed By: #### L 100.0100, L500.4050 #### [facility] [address] [place], [address] Urea nitrogen [Mass/Vol] 12 mg/dL Normal 7-18 [facility] Comment on above: Performed By: #### L 100.0100, L500.4050 #### [facility] [address] [place], [address] Creatinine [Mass/Vol]Ordered By: Pedro Krishnan on 11-27-2024 Serum or plasma creatinine measurement (mass/volume) 0.94 mg/dL 0.70-1.30 [facility] Emergency Department Summary on 11-27-2024 Emergency Department Summary [facility] Medical Records Department [address] [place] [address] Emergency Department Summary 11/27/24 MR#: [id number] Acct: [id number] Name: JERALD YODER Rep #: [id number] : 1960 64 From: Pedro Krishnan DO [...] he has been passing gas. [facility] Medical History Partial traumatic amputation of left [...] no juana (more content not included)... Normal [facility] Eosinophil percentageOrdered By: Pedro Krishnan on 11-27-2024 Eosinophils/100 WBC (Bld) 2.8 % 0-5 [facility] Eosinophil percentage 2.8 % 0-5 [facility] Erythrocyte distribution wid th (RBC) [Ratio]Ordered By: Pedro Krishnan on 11-27-2024 Erythrocyte distribution width ratio 14.2 % 11.6-14.6 [facility] Erythrocyte distribution width standard deviation 41.3 fl 35.1-43.9 [facility] Erythrocyte distribution wid th ratioOrdered By: Pedro Krishnan on 11-27-2024 Erythrocyte distribution width (RBC) [Ratio] 14.2 % 11.6-14.6 [facility] Erythrocyte distribution wid th standard deviationOrdered By: Pedro Krishnan on 11-27-2024 Erythrocyte distribution width (RBC) [Ratio] 41.3 fl 35.1-43.9 [facility] Estimated glomerular filtrat ion rate (GFR) AmericanOrdered By: Pedro Krishnan on 11-27-2024 Estimated glomerular filtration rate (GFR) 103 mL/min >60 [facility] Glomerular filtration rate ( GFR) estimationOrdered By: Pedro Krishnan on 11-27-2024 GFR/1.73 sq M.predicted among non-blacks MDRD (S/P/Bld) [Vol rate/Area] 86 mL/min/{1.73_m2} >60 [facility] Comment on above: Non- GFR Calc Glomerular filtration rate (GFR) estimation 86 mL/min >60 [facility] Glucose Ql (U)Ordered By: Bridger Krishnan on 11-27-2024 Urine glucose detection 1000 mg/dl High Normal W [facility] Glucose measurementOrdered B y: Pedro Krishnan on 11-27-2024 Glucose [Mass/Vol] 373 mg/dL High 74-106 [facility] Comment on above: Glucose result great er than or equal to 200 mg/dLsuggests DIABETES MELLITUS per A.D.A. criteria. Glucose measurement 373 mg/dL High 74-106 [facility] Hematocrit Auto (Bld) [Volum e fraction]Ordered By: Pedro Krishnan on 11-27-2024 Hematocrit (Bld) [Volume fraction] 41.1 % 40-54 [facility] Automated blood hematocrit (percentage) 41.1 % 40-54 [facility] Hemoglobin measurementOrdere d By: Pedro Krishnan on 11-27-2024 Hemoglobin (Bld) [Mass/Vol] 14.2 g/dL 13.0-16.5 [facility] Hemoglobin measurement 14.2 g/dL 13.0-16.5 [facility] Immature granulocytes/100 WB C Auto (Bld)Ordered By: Pedro Krishnan on 11-27-2024 Immature granulocytes/100 WBC (Bld) 0.300 % 0.0-0.9 [facility] Comment on above: IG% - Immature Granu locytes (promyelocytes, myelocytes and metamyelocytes) > 1% indicates that a LEFT SHIFT is Present. Automated immature granulocyte percentage 0.300 % 0.0-0.9 [facility] Ketones Test strip Ql (U)Ord ered By: Pedro Krishnan on 11-27-2024 Ketones Ql (U) Negative Negative [facility] - Chemistry and C hemistry - challengeOrdered By: Pedro Krishnan on 11-27-2024 AST [Catalytic activity/Vol] 11 U/L Low 15-37 [facility] Lipaseon 11-27-2024 Lipase [Catalytic activity/Vol] 23 U/L Normal 13-75 [facility] Comment on above: Result Comment: Plea se note: LIPASE revised reference range effective 23. New Lipase methodology. Expected to produce lower values than the previous assay method. NEW Reference Range: 13 - 75 U/L Performed By: #### L 100.0100, L500.4050 #### [facility] [address] [place] [address], [address] Lipase measurementOrdered By : Pedro Krishnan on 11-27-2024 Lipase [Catalytic activity/Vol] 23 U/L 13-75 [facility] Comment on above: Please note:LIPASE r evised reference range effective 23. New Lipase methodology. Expected to produce lower values than the previous assay method. NEW Reference Range: 13 - 75 U/L Lipase measurement 23 U/L 13-75 [facility] Lymphocytes Auto (Unsp spec) [#/Vol]Ordered By: Pedro Krishnan on 11-27-2024 Absolute lymphocyte count 1.51 X10^3/uL 0.83-4.51 [facility] Lymphocytes/100 WBC Auto (Un sp spec)Ordered By: Pedro Krishnan on 11-27-2024 Automated lymphocyte count as percentage of total leukocytes 16.8 % Low 19-41 [facility] MCV (RBC) [Entitic vol]Order ed By: Pedro Krishnan on 11-27-2024 MCV (mean corpuscular volume) determination 81.7 fL 80-94 [facility] MCV (mean corpuscular volume ) determinationOrdered By: Pedro Krishnan on 11-27-2024 MCV (RBC) [Entitic vol] 81.7 fL 80-94 [facility] Mean corpuscular hemoglobin (MCH) determinationOrdered By: Pedro Krishnan on 11-27-2024 MCH (RBC) [Entitic mass] 28.2 pg 27.0-32.0 [facility] Mean corpuscular hemoglobin (MCH) determination 28.2 pg 27.0-32.0 [facility] Mean corpuscular hemoglobin concentration (MCHC) determinationOrdered By: Pedro Krishnan on 11-27-2024 MCHC (RBC) [Mass/Vol] 34.5 g/dL 32-36 [facility] Mean corpuscular hemoglobin concentration (MCHC) determination 34.5 g/dL 32-36 [facility] Mean platelet volume determi nationOrdered By: Pedro Krishnan on 11-27-2024 Platelet mean volume (Bld) [Entitic vol] 9.3 fL 6.2-12.0 [facility] Mean platelet volume determination 9.3 fl 6.2-12.0 [facility] Microscopic analysis of urin e for red blood cells (RBC)Ordered By: Pedro Krishnan on 11-27-2024 Microscopic analysis of urine for red blood cells (RBC) 0-5 SEEN /hpf 0-5 [facility] Monocyte percentageOrdered B y: Pedro Krishnan on 11-27-2024 Monocytes/100 WBC (Bld) 5.5 % 0-10 [facility] Monocyte percentage 5.5 % 0-10 [facility] Mucus LM Ql (Urine sed)Order ed By: Pedro Krishnan on 11-27-2024 Mucus Ql (Urine sed) 0 SEEN /hpf [facility] Mucus detection in urine sediment by light microscopy 0 SEEN /hpf [facility] Neutrophil percentageOrdered By: Pedro Krishnan on 11-27-2024 Neutrophils/100 WBC (Bld) 73.9 % High 47-70 [facility] Neutrophil percentage 73.9 % High 47-70 [facility] Nitrite Test strip Ql (U)Ord ered By: Pedro Krishnan on 11-27-2024 Nitrite Ql (U) Negative Negative [facility] No Panel InformationOrdered By: Pedro Krishnan on 11-27-2024 11 U/L Low 15-37 [facility] Nucleated red blood cell per centageOrdered By: Pedro Krishnan on 11-27-2024 Nucleated RBC/100 WBC (Bld) [Ratio] 0 % 0-5 [facility] Nucleated red blood cell percentage 0 % 0-5 [facility] Platelet countOrdered By: Bridger Krishnan on 11-27-2024 Platelets (Bld) [#/Vol] 231 10*3/uL 150-450 [facility] Platelet count 231 K/mm3 150-450 [facility] Potassium measurementOrdered By: Pedro Krishnan on 11-27-2024 Potassium [Moles/Vol] 3.8 mmol/L 3.5-5.1 [facility] Potassium measurement 3.8 mmol/L 3.5-5.1 [facility] Protein Test strip Ql (U)Ord ered By: Pedro Krishnan on 11-27-2024 Protein Ql (U) 30 mg/dl High Negative [facility] Urine protein assay by test strip, semi-quantitative 30 mg/dl High Negative [facility] RBC Auto (Bld) [#/Vol]Ordere d By: Pedro Krishnan on 11-27-2024 RBC (Bld) [#/Vol] 5.03 10*6/uL 4.6-6.2 [facility] Automated blood erythrocyte count 5.03 M/mm3 4.6-6.2 [facility] Serum anion gap measurementO rdered By: Pedro Krishnan on 11-27-2024 Anion gap [Moles/Vol] 10 mmol/L 5-15 [facility] Serum anion gap measurement 10 5-15 [facility] Serum globulin measurementOr dered By: Pedro Krishnan on 11-27-2024 Globulin (S) [Mass/Vol] 3.7 g/dL 2.2-4.2 [facility] Serum globulin measurement 3.7 g/dL 2.2-4.2 [facility] Serum or plasma alanine wagoner otransferase (ALT) measurementOrdered By: Pedro Krishnan on 11-27-2024 ALT [Catalytic activity/Vol] 16 U/L 16-61 [facility] Serum or plasma albumin yayo urement (mass/volume)Ordered By: Pedro Krishnan on 11-27-2024 Albumin [Mass/Vol] 3.6 g/dL 3.2-5.0 [facility] Serum or plasma alkaline andrzej sphatase measurementOrdered By: Pedro Krishnan on 11-27-2024 ALP [Catalytic activity/Vol] 107 U/L 45-117 [facility] Serum or plasma calcium yayo urement (mass/volume)Ordered By: Pedro Krishnan on 11-27-2024 Calcium [Mass/Vol] 8.8 mg/dL 8.5-10.1 [facility] Serum or plasma creatinine m easurement (mass/volume)Ordered By: Pedro Krishnan on 11-27-2024 Creatinine [Mass/Vol] 0.94 mg/dL 0.70-1.30 [facility] Comment on above: The validity of the calculated GFR & GFRAA in patients over 70 years has not been determined. Clinical correlation is essential. Serum or plasma urea nitroge n measurement (mass/volume)Ordered By: Pedro Krishnan on 11-27-2024 Urea nitrogen [Mass/Vol] 12 mg/dL 7-18 [facility] Sodium levelOrdered By: Vinicius Krishnan on 11-27-2024 Sodium [Moles/Vol] 133 mmol/L Low 136-145 [facility] Sodium level 133 mmol/L Low 136-145 [facility] Specific gravity (U) [Rel de nsity]Ordered By: Pedro Krishnan on 11-27-2024 Urine specific gravity measurement 1.020 1.002-1.030 [facility] Squamous epithelial cells de tection in urine sediment by light microscopyOrdered By: Pedro Krishnan on 11-27-2024 Epithelial cells.squamous LM Ql (Urine sed) 0-5 SEEN /hpf 0-5 [facility] Total proteinOrdered By: Issac Krishnan on 11-27-2024 Protein [Mass/Vol] 7.3 g/dL 6.4-8.2 [facility] Total protein 7.3 g/dL 6.4-8.2 [facility] Urea nitrogen [Mass/Vol]Orde red By: Pedro Krishnan on 11-27-2024 Serum or plasma urea nitrogen measurement (mass/volume) 12 mg/dL 7-18 [facility] Urinalysis, Completeon 11-27 BACTERIA RARE Normal None Seen [facility] Comment on above: Order Comment: CLEAN CATCH Performed By: #### L 400.0001 ####[facility] [address] [facility] [address] EPI,SQUAMOUS 0-5 SEEN Normal 0-5 [facility] Comment on above: Order Comment: CLEAN CATCH Performed By: #### L 400.0001 ####[facility] [address] [facility] [address] RBC 0-5 SEEN Normal 0-5 [facility] Comment on above: Order Comment: CLEAN CATCH Performed By: #### L 400.0001 ####[facility] [address] [place], [address] WBC 0-5 SEEN Normal 0-5 [facility] Comment on above: Order Comment: CLEAN CATCH Performed By: #### L 400.0001 ####[facility] [address] [place], [address] YEAST 1+ /hpf Normal None Seen [facility] Comment on above: Order Comment: CLEAN CATCH Performed By: #### L 400.0001 ####[facility] [address] [place], [address] Mucus Ql (Urine sed) 0 SEEN Normal [facility] Comment on above: Order Comment: CLEAN CATCH Performed By: #### L 400.0001 ####[facility] [address] [place], [address] Urine blood detectionOrdered By: Pedro Krishnan on 11-27-2024 Urine blood detection 10 /ul High Negative [facility] Urine clarityOrdered By: Issac Krishnan on 11-27-2024 Clarity (U) Clear Clear [facility] Urine color determinationOrd ered By: Pedro Krishnan on 11-27-2024 Color (U) Yellow Yellow [facility] Urine glucose detectionOrder ed By: Pedro Krishnan on 11-27-2024 Glucose Ql (U) 1000 mg/dl High Normal [facility] Urine leukocyte esterase det ection by dipstickOrdered By: Pedro Krishnan on 11-27-2024 Leukocyte esterase Test strip Ql (U) Negative Negative [facility] Urine pHOrdered By: Pedro wynne on 11-27-2024 pH (U) 6.0 [pH] 5.0 - 8.0 [facility] Urine sediment bacteria coun t by microscopy (number/high power field)Ordered By: Pedro Krishnan on 11-27-2024 Bacteria LM.HPF (Urine sed) [#/Area] RARE /hpf None Seen [facility] Urine sediment yeast count b y microscopy (number/high powered field)Ordered By: Pedro Krishnan on 11-27-2024 Yeast LM.HPF (Urine sed) [#/Area] 1 /[HPF] None Seen [facility] Urine specific gravity measu rementOrdered By: Pedro Krishnan on 11-27-2024 Specific gravity (U) [Rel density] 1.020 1.002-1.030 [facility] Urine total bilirubin detect ion by test stripOrdered By: Pedro Krishnan on 11-27-2024 Urine total bilirubin detection by test strip Negative Negative [facility] Urine urobilinogen measureme ntOrdered By: Pedro Krishnan on 11-27-2024 Urobilinogen Ql (U) Normal mg/dl Normal [facility] Urobilinogen Ql (U)Ordered B y: Pedro Krishnan on 11-27-2024 Urine urobilinogen measurement Normal mg/dl Normal [facility] White blood cell (WBC) count Ordered By: Pedro Krishnan on 11-27-2024 WBC (Bld) [#/Vol] 9.0 10*3/uL 4.4-11.0 [facility] White blood cell (WBC) count 9.0 K/mm3 4.4-11.0 [facility] White blood cell countOrdere d By: Pedro Krishnan on 11-27-2024 White blood cell count 0-5 SEEN /hpf 0-5 [facility] White blood cell count 0-5 SEEN /hpf 0-5 [facility] Yeast LM.HPF (Urine sed) [#/ Area]Ordered By: Pedro Krishnan on 11-27-2024 Urine sediment yeast count by microscopy (number/high powered field) 1+ /hpf None Seen [facility] pH (U)Ordered By: Pedro perez on 11-27-2024 Urine pH 6.0 5.0 - 8.0 [facility] Absolute neutrophil countOrd ered By: Johann Lemons on 10-30-2024 Absolute neutrophil count 4.5 X10^3/uL 2.0-7.7 [facility] Basic Metabolic Profile (BMP )on 10-30-2024 BUN/CRE 21.2 RATIO High 10-20 [facility] Comment on above: Performed By: #### L 100.0100, L501.5200, L500.2500 ####[facility] [address] [place], [address] CA,Total 9.0 mg/dL Normal 8.5-10.1 [facility] Comment on above: Performed By: #### L 100.0100, L501.5200, L500.2500 ####[facility] [address] [place], [address] Chloride [Moles/Vol] 101 mmol/L Normal 98-107 [facility] Comment on above: Performed By: #### L 100.0100, L501.5200, L500.2500 ####[facility] [address] [place], [address] CO2 [Moles/Vol] 29.0 mmol/L Normal 21.0-32.0 [facility] Comment on above: Performed By: #### L 100.0100, L501.5200, L500.2500 ####[facility] [address] [place], [address] Creatinine [Mass/Vol] 0.90 mg/dL Normal 0.70-1.30 [facility] Comment on above: Result Comment: The validity of the calculated GFR GFRAA in patients over 70 years has not been determined. Clinical correlation is essential. Performed By: #### L 100.0100, L501.5200, L500.2500 ####[facility] [address] [place], [address] EST GFR - AA 110 mL/min Normal >60 [facility] Comment on above: Result Comment: Afri can Mosotho GFR Calc Performed By: #### L 100.0100, L501.5200, L500.2500 ####[facility] [address] [place], [address] GAP 7 Normal 5-15 [facility] Comment on above: Performed By: #### L 100.0100, L501.5200, L500.2500 ####[facility] [address] [place], [address] GFR/1.73 sq M.predicted among non-blacks MDRD (S/P/Bld) [Vol rate/Area] 91 mL/min/{1.73_m2} Normal >60 [facility] Comment on above: Result Comment: Non- GFR Calc Performed By: #### L 100.0100, L501.5200, L500.2500 ####[facility] [address] [place], [address] Glucose [Mass/Vol] 361 mg/dL High 74-106 [facility] Comment on above: Result Comment: Gluc ose result greater than or equal to 200 mg/dL suggests DIABETES MELLITUS per A.D.A. criteria. Performed By: #### L 100.0100, L501.5200, L500.2500 ####[facility] [address] [place], [address] Potassium [Moles/Vol] 3.8 mmol/L Normal 3.5-5.1 [facility] Comment on above: Performed By: #### L 100.0100, L501.5200, L500.2500 ####[facility] [address] [place], [address] Sodium [Moles/Vol] 136 mmol/L Normal 136-145 [facility] Comment on above: Performed By: #### L 100.0100, L501.5200, L500.2500 ####[facility] [address] [place], [address] Urea nitrogen [Mass/Vol] 19 mg/dL High 7-18 [facility] Comment on above: Performed By: #### L 100.0100, L501.5200, L500.2500 ####[facility] [address] [place], [address] Basophil percentageOrdered B y: Johannirene Lemons on 10-30-2024 Basophil percentage 0.4 % 0-1 [facility] Blood urea nitrogen (BUN)/cr eatinine ratioOrdered By: Johann Lemons on 10-30-2024 Blood urea nitrogen (BUN)/creatinine ratio 21.2 RATIO High 10-20 [facility] CBC W/Diff, Automatedon 12- Absolute Lymph 1.53 X10 3/uL Normal 0.83-4.51 [facility] Comment on above: Performed By: #### L 100.0100, L501.5200, L500.2500 ####[facility] [address] [place], [address] Absolute Neut 4.5 X10 3/uL Normal 2.0-7.7 [facility] Comment on above: Performed By: #### L 100.0100, L501.5200, L500.2500 ####[facility] [address] [place], [address] Basophils/100 WBC (Bld) 0.4 % Normal 0-1 [facility] Comment on above: Performed By: #### L 100.0100, L501.5200, L500.2500 ####[facility] [address] [place], [address] Eosinophils/100 WBC (Bld) 3.5 % Normal 0-5 [facility] Comment on above: Performed By: #### L 100.0100, L501.5200, L500.2500 ####[facility] [address] [place], [address] Erythrocyte distribution width (RBC) [Ratio] 13.2 % Normal 11.6-14.6 [facility] Comment on above: Performed By: #### L 100.0100, L501.5200, L500.2500 ####[facility] [address] [place], [address] Hematocrit (Bld) [Volume fraction] 39.5 % Low 40-54 [facility] Comment on above: Performed By: #### L 100.0100, L501.5200, L500.2500 ####[facility] [address] [place], [address] Hemoglobin (Bld) [Mass/Vol] 14.2 g/dL Normal 13.0-16.5 [facility] Comment on above: Performed By: #### L 100.0100, L501.5200, L500.2500 ####[facility] [address] [place], [address] IG% 0.600 Normal 0.0-0.9 [facility] Comment on above: Result Comment: IG% - Immature Granulocytes (promyelocytes, myelocytes and metamyelocytes) > 1% indicates that a LEFT SHIFT is Present. Performed By: #### L 100.0100, L501.5200, L500.2500 ####[facility] [address] [place], [address] Lymphocytes/100 WBC (Bld) 22.4 % Normal 19-41 [facility] Comment on above: Performed By: #### L 100.0100, L501.5200, L500.2500 ####[facility] [address] [place], [address] MCH (RBC) [Entitic mass] 29.0 pg Normal 27.0-32.0 [facility] Comment on above: Performed By: #### L 100.0100, L501.5200, L500.2500 ####[facility] [address] [place], [address] MCHC (RBC) [Mass/Vol] 35.9 g/dL Normal 32-36 [facility] Comment on above: Performed By: #### L 100.0100, L501.5200, L500.2500 ####[facility] [address] [place], [address] MCV (RBC) [Entitic vol] 80.6 fL Normal 80-94 [facility] Comment on above: Performed By: #### L 100.0100, L501.5200, L500.2500 ####[facility] [address] [place], [address] Monocytes/100 WBC (Bld) 7.2 % Normal 0-10 [facility] Comment on above: Performed By: #### L 100.0100, L501.5200, L500.2500 ####[facility] [address] [place], [address] Neutrophils/100 WBC (Bld) 65.9 % Normal 47-70 [facility] Comment on above: Performed By: #### L 100.0100, L501.5200, L500.2500 ####[facility] [address] [place], [address] Nucleated RBC (Bld) [#/Vol] 0 10*3/uL Normal 0-5 [facility] Comment on above: Performed By: #### L 100.0100, L501.5200, L500.2500 ####[facility] [address] [place], [address] Platelet mean volume (Bld) [Entitic vol] 9.1 fL Normal 6.2-12.0 [facility] Comment on above: Performed By: #### L 100.0100, L501.5200, L500.2500 ####[facility] [address] [place], [address] Platelets (Bld) [#/Vol] 158 10*3/uL Normal 150-450 [facility] Comment on above: Performed By: #### L 100.0100, L501.5200, L500.2500 ####[facility] [address] [place], [address] RBC (Bld) [#/Vol] 4.90 10*6/uL Normal 4.6-6.2 [facility] Comment on above: Performed By: #### L 100.0100, L501.5200, L500.2500 ####[facility] [address] [place], [address] RDW SD 38.2 fl Normal 35.1-43.9 [facility] Comment on above: Performed By: #### L 100.0100, L501.5200, L500.2500 ####[facility] [address] [place], [address] WBC (Bld) [#/Vol] 6.8 10*3/uL Normal 4.4-11.0 [facility] Comment on above: Performed By: #### L 100.0100, L501.5200, L500.2500 ####[facility] [address] [place], [address] Calcium [Mass/Vol]Ordered By : Johann Lemons on 10-30-2024 Serum or plasma calcium measurement (mass/volume) 9.0 mg/dL 8.5-10.1 [facility] Carbon dioxide measurementOr dered By: Johann Lemons on 10-30-2024 Carbon dioxide measurement 29.0 mmol/L 21.0-32.0 [facility] Chloride measurementOrdered By: Johann Lemons on 10-30-2024 Chloride measurement 101 mmol/L 98-107 [facility] Clarity (U)Ordered By: Roland Lemons on 10-30-2024 Urine clarity Clear Clear [facility] Color (U)Ordered By: Johann Lemons on 10-30-2024 Urine color determination Yellow Yellow [facility] Creatinine [Mass/Vol]Ordered By: Johann Lemons on 10-30-2024 Serum or plasma creatinine measurement (mass/volume) 0.90 mg/dL 0.70-1.30 [facility] Emergency Department Summary on 10-30-2024 Emergency Department Summary [facility] System Medical Records Department [address] [place] [address] Emergency Department Summary 10/30/24 MR#: [id number] Acct: [id number] Name: JERALD YODER Rep #: [id number] : 1960 64 From: Johann Lemons DO [...] was brought in for evaluation [facility] Medical History Partial traumatic amputation of left [...] [employer] (more content not included)... Normal [facility] Eosinophil percentageOrdered By: Johann Lemons on 10-30-2024 Eosinophil percentage 3.5 % 0-5 [facility] Erythrocyte distribution wid th (RBC) [Ratio]Ordered By: Johann Lemons on 10-30-2024 Erythrocyte distribution width ratio 13.2 % 11.6-14.6 [facility] Erythrocyte distribution width standard deviation 38.2 fl 35.1-43.9 [facility] Estimated glomerular filtrat ion rate (GFR) AmericanOrdered By: Johann Lemons on 10-30-2024 Estimated glomerular filtration rate (GFR) 110 mL/min >60 [facility] Glomerular filtration rate ( GFR) estimationOrdered By: Johann Lemons on 10-30-2024 Glomerular filtration rate (GFR) estimation 91 mL/min >60 [facility] Glucose Ql (U)Ordered By: Julia Lemons on 10-30-2024 Urine glucose detection 1000 mg/dl High Normal W [facility] Glucose measurementOrdered B y: Johann Lemons on 10-30-2024 Glucose measurement 361 mg/dL High 74-106 [facility] Hematocrit Auto (Bld) [Volum e fraction]Ordered By: Johann Lemons on 10-30-2024 Automated blood hematocrit (percentage) 39.5 % Low 40-54 [facility] Hemoglobin measurementOrdere d By: Johann Lemons on 10-30-2024 Hemoglobin measurement 14.2 g/dL 13.0-16.5 [facility] Immature granulocytes/100 WB C Auto (Bld)Ordered By: Johann Lemons on 10-30-2024 Automated immature granulocyte percentage 0.600 % 0.0-0.9 [facility] Ketones Test strip Ql (U)Ord ered By: Johann Lemons on 10-30-2024 Urine ketones detection by test strip 5 mg/dl High Negative [facility] Lymphocytes Auto (Unsp spec) [#/Vol]Ordered By: Johann Lemons on 10-30-2024 Absolute lymphocyte count 1.53 X10^3/uL 0.83-4.51 [facility] Lymphocytes/100 WBC Auto (Un sp spec)Ordered By: Johann Lemons on 10-30-2024 Automated lymphocyte count as percentage of total leukocytes 22.4 % 19-41 [facility] M100.678on 10-30-2024 M100.678 Pending SARS-CoV-2 (COVID 19) Negative INFLUENZA A Negative INFLUENZA B Negative RSV PCR Negative Normal [facility] Comment on above: Performed By: #### L 100.0100, L500.4050 #### [facility] [place], [address] MCV (RBC) [Entitic vol]Order ed By: Johann Lemons on 10-30-2024 MCV (mean corpuscular volume) determination 80.6 fL 80-94 [facility] Magnesiumon 10-30-2024 Magnesium [Mass/Vol] 1.5 mg/dL Low 1.6-2.6 [facility] Comment on above: Performed By: #### L 100.0100, L501.5200, L500.2500 ####[facility] [address] [place], [address] Magnesium measurementOrdered By: Johann Lemons on 10-30-2024 Magnesium measurement 1.5 mg/dL Low 1.6-2.6 [facility] Mean corpuscular hemoglobin (MCH) determinationOrdered By: Johann Leomns on 10-30-2024 Mean corpuscular hemoglobin (MCH) determination 29.0 pg 27.0-32.0 [facility] Mean corpuscular hemoglobin concentration (MCHC) determinationOrdered By: Johann Lemons on 10-30-2024 Mean corpuscular hemoglobin concentration (MCHC) determination 35.9 g/dL 32-36 [facility] Mean platelet volume determi nationOrdered By: Johann Lemons on 10-30-2024 Mean platelet volume determination 9.1 fl 6.2-12.0 [facility] Monocyte percentageOrdered B y: Johann Lemons on 10-30-2024 Monocyte percentage 7.2 % 0-10 [facility] Neutrophil percentageOrdered By: Johann Lemons on 10-30-2024 Neutrophil percentage 65.9 % 47-70 [facility] Nucleated red blood cell per centageOrdered By: Johann Lemons on 10-30-2024 Nucleated red blood cell percentage 0 % 0-5 [facility] Platelet countOrdered By: Julia Lemons on 10-30-2024 Platelet count 158 K/mm3 150-450 [facility] Potassium measurementOrdered By: Johann Lemons on 10-30-2024 Potassium measurement 3.8 mmol/L 3.5-5.1 [facility] Protein Test strip Ql (U)Ord ered By: Johann Lemons on 10-30-2024 Urine protein assay by test strip, semi-quantitative 15 mg/dl High Negative [facility] RBC Auto (Bld) [#/Vol]Ordere d By: Johann Lemons on 10-30-2024 Automated blood erythrocyte count 4.90 M/mm3 4.6-6.2 [facility] Serum anion gap measurementO rdered By: Johann Lemons on 10-30-2024 Serum anion gap measurement 7 5-15 [facility] Sodium levelOrdered By: Keith Lemons on 10-30-2024 Sodium level 136 mmol/L 136-145 [facility] Specific gravity (U) [Rel de nsity]Ordered By: Johann Lemons on 10-30-2024 Urine specific gravity measurement 1.015 1.002-1.030 [facility] Urea nitrogen [Mass/Vol]Orde red By: Johann Lemons on 10-30-2024 Serum or plasma urea nitrogen measurement (mass/volume) 19 mg/dL High 7-18 [facility] Urinalysis, Completeon 10-30 BACTERIA 0 SEEN Normal None Seen [facility] Comment on above: Order Comment: NO CTOR TO SPECIFY Performed By: #### L 100.0100, L500.4050 #### [facility] [address] [place], [address] EPI,SQUAMOUS 0 SEEN Normal 0-[address] [place] [address] Comment on above: Order Comment: NO CTOR TO SPECIFY Performed By: #### L 100.0100, L500.4050 #### [facility] [address] [place], [address] Mucus Ql (Urine sed) 0 SEEN Normal [facility] Comment on above: Order Comment: NO CTOR TO SPECIFY Performed By: #### L 100.0100, L500.4050 #### [facility] [address] [place], [address] RBC 0 SEEN Normal 0-[address] [place] [address] Comment on above: Order Comment: NO CTOR TO SPECIFY Performed By: #### L 100.0100, L500.4050 #### [facility] [address] [place], [address] WBC 0 SEEN Normal 0-5 [facility] Comment on above: Order Comment: NO CTOR TO SPECIFY Performed By: #### L 100.0100, L500.4050 #### [facility] [address] [facility] [place], [place], [address] Urine total bilirubin detect ion by test stripOrdered By: Johann Lemons on 10-30-2024 Urine total bilirubin detection by test strip Negative Negative [facility] Urobilinogen Ql (U)Ordered B y: Johann Lemons on 10-30-2024 Urine urobilinogen measurement Normal mg/dl Normal [facility] White blood cell (WBC) count Ordered By: Johann Lemons on 10-30-2024 White blood cell (WBC) count 6.8 K/mm3 4.4-11.0 [facility] White blood cell countOrdere d By: Johann Lemons on 10-30-2024 White blood cell count 0 SEEN /hpf W [facility] pH (U)Ordered By: Wilmer on 10-30-2024 Urine pH 6.0 5.0 - 8.0 [facility] Chest 1 View (Portable)on Chest 1 View (Portable) [facility] Imaging Services [address] [place], [place] [address] Chest 1 View (Portable) MR#: [id number] Acct: [id number] Name: JERALD YODER Rep #: [id number] : 1960 M 64 From: Dina Christina PCP: Dr. Linden Chavez, Status: REG ER Study: Chest 1 View (Portable) Date of Exam: 10/29/24 Exam# [id number] Ordering Dr: [place] [id number] INDICATION: weakness EXAMINATION/TECHNIQUE: X-RAY - XR Chest [...] 1:07 EST Reading Location ID and State: [address] [place] [address] Tel , Service support , CC: Dr. Linden Chavez DO; Johann Lemons DO [employer] Operator: Signed Normal [facility] 12 Lead EKGon 10-19-2024 12 Lead EKG [facility] Cardiovascular Services [address] [place] [address] 12 Lead EKG 10/19/24 0422 MR#: [id number] Acct: [id number] Name: JERALD YODER Rep #: [id number] : 1960 64 From: Cesar Mccoy MD [...] ECG Confirmed by CESAR MCCOY MD ([id number]), magazine editor CARLA HERNANDEZ ([id number]) on 10/19/2024 8:17:03 AM Referred By: Confirmed By: CESAR MCCOY MD 10/19/24 0817 Date Cesar Mccoy MD CC: Dr. Live Ashley MD; Dr. Linden Chavez DO Signed [facility] Absolute neutrophil countOrd ered By: Live Ashley on 10-19-2024 Absolute neutrophil count 4.7 X10^3/uL 2.0-7.7 [facility] Basic Metabolic Profile (BMP )on 10-19-2024 BUN/CRE 14.7 RATIO Normal - [facility] Comment on above: Order Comment: 'TROP ' Serial specimen #1, #2 or #3: 1 Performed By: #### L 100.0100, L500.4050 #### [facility] [address] [place], [address] CA,Total 8.8 mg/dL Normal 8.5-10.1 [facility] Comment on above: Order Comment: 'TROP ' Serial specimen #1, #2 or #3: 1 Performed By: #### L 100.0100, L500.4050 #### [facility] [address] [place], [address] Chloride [Moles/Vol] 99 mmol/L Normal 98-107 [facility] Comment on above: Order Comment: 'TROP ' Serial specimen #1, #2 or #3: 1 Performed By: #### L 100.0100, L500.4050 #### [facility] [address] [place], [address] CO2 [Moles/Vol] 26.0 mmol/L Normal 21.0-32.0 [facility] Comment on above: Order Comment: 'TROP ' Serial specimen #1, #2 or #3: 1 Performed By: #### L 100.0100, L500.4050 #### [facility] [address] [place], [address] Creatinine [Mass/Vol] 1.02 mg/dL Normal 0.70-1.30 [facility] Comment on above: Order Comment: 'TROP ' Serial specimen #1, #2 or #3: 1 Result Comment: The validity of the calculated GFR GFRAA in patients over 70 years has not been determined. Clinical correlation is essential. Performed By: #### L 100.0100, L500.4050 #### [facility] [address] [place], [address] ECRCL 92.21 ml/min Normal [facility] Comment on above: Order Comment: 'TROP ' Serial specimen #1, #2 or #3: 1 Performed By: #### L 100.0100, L500.4050 #### [facility] [address] [place], [address] EST GFR - AA 94 mL/min Normal >60 [facility] Comment on above: Order Comment: 'TROP ' Serial specimen #1, #2 or #3: 1 Result Comment: Afri can Mosotho GFR Calc Performed By: #### L 100.0100, L500.4050 #### [facility] [address] [place], [address] GAP 5 Normal 5-15 [facility] Comment on above: Order Comment: 'TROP ' Serial specimen #1, #2 or #3: 1 Performed By: #### L 100.0100, L500.4050 #### [facility] [address] [place], [address] GFR/1.73 sq M.predicted among non-blacks MDRD (S/P/Bld) [Vol rate/Area] 78 mL/min/{1.73_m2} Normal >60 [facility] Comment on above: Order Comment: 'TROP ' Serial specimen #1, #2 or #3: 1 Result Comment: Non- GFR Calc Performed By: #### L 100.0100, L500.4050 #### [facility] [address] [place], [address] Glucose [Mass/Vol] 494 mg/dL Invalid Interpretation Code 74-106 [facility] Comment on above: Order Comment: 'TROP ' Serial specimen #1, #2 or #3: 1 Result Comment: Crit ical Result(s) Called at: 04:42:01 10/19/2024 by: Carla Montgomery LSparr. Results read back by same. Glucose result greater than or equal to 200 mg/dL suggests DIABETES MELLITUS per A.D.A. criteria. Performed By: #### L 100.0100, L500.4050 #### [facility] [address] [place], [address] Potassium [Moles/Vol] 3.7 mmol/L Normal 3.5-5.1 [facility] Comment on above: Order Comment: 'TROP ' Serial specimen #1, #2 or #3: 1 Performed By: #### L 100.0100, L500.4050 #### [facility] [address] [place], [address] Sodium [Moles/Vol] 130 mmol/L Low 136-145 [facility] Comment on above: Order Comment: 'TROP ' Serial specimen #1, #2 or #3: 1 Performed By: #### L 100.0100, L500.4050 #### [facility] [address] [place], [address] Urea nitrogen [Mass/Vol] 15 mg/dL Normal 7-18 [facility] Comment on above: Order Comment: 'TROP ' Serial specimen #1, #2 or #3: 1 Performed By: #### L 100.0100, L500.4050 #### [facility] [address] [place], [address] Basophil percentageOrdered B y: Live Ashley on 10-19-2024 Basophil percentage 1.0 % 0-1 [facility] Bedside Glucoseon 10-19-2024 FINGERSTICK GLU 263 mg/dL High 74-106 [facility] Comment on above: Result Comment: TAYLOR GEMENT OF PATIENT CARE PER NURSING PROTOCOL Performed By: #### L 100.0100, L500.4050 #### [facility] [address] [place], [address] FINGERSTICK GLU 353 mg/dL High 74-106 [facility] Comment on above: Result Comment: TAYLOR GEMENT OF PATIENT CARE PER NURSING PROTOCOL Performed By: #### L 100.0100, L500.4050 #### [facility] [address] [place], [address] FINGERSTICK GLU > 500 Invalid Interpretation Code 74-106 [facility] Comment on above: Result Comment: TAYLOR SEALS OF PATIENT CARE PER NURSING PROTOCOL Performed By: #### L 501.080 ####[facility] [address] [place], [address] Blood urea nitrogen (BUN)/cr eatinine ratioOrdered By: Live Ashley on 10-19-2024 Blood urea nitrogen (BUN)/creatinine ratio 14.7 RATIO 08-19 [facility] CBC W/Diff, Automatedon 10-01 PLT EST ADEQUATE Normal ADEQ [facility] Comment on above: Performed By: #### L 100.0100, L500.4050 #### [facility] [address] [place], [address] RED CELL MORPH NORM C+C Normal NORM C C [facility] Comment on above: Performed By: #### L 100.0100, L500.4050 #### [facility] [address] [place], [address] SMEAR COMMENT SCANNED Normal [facility] Comment on above: Performed By: #### L 100.0100, L500.4050 #### [facility] [address] [place], [address] Calcium [Mass/Vol]Ordered By : Live Ashley on 10-19-2024 Serum or plasma calcium measurement (mass/volume) 8.8 mg/dL 8.5-10.1 [facility] Carbon dioxide measurementOr dered By: Live Ashley on 10-19-2024 Carbon dioxide measurement 26.0 mmol/L 21.0-32.0 [facility] Chest PA and Lateralon 10-19 Chest PA and Lateral [facility] Imaging Services [address] [place] [address] Chest PA and Lateral MR#: [id number] Acct: [id number] Name: JERALD YODER Rep #: [id number] : 1960 M 64 From: Johann Aldrich MD PCP: Dr. Linden Chavez DO Status: REG ER Study: Chest PA and Lateral Date of Exam: 10/19/24 Exam# [id number] Ordering Dr: [place] [id number] EXAM: XR CHEST, 2 VIEWS CLINICAL INDICATION: [...] Live Ashley MD; Dr. Linden Chavez DO [employer] Operator: Signed Normal [facility] Chloride measurementOrdered By: Live Ashley on 10-19-2024 Chloride measurement 99 mmol/L 98-107 [facility] Clarity (U)Ordered By: Melissa Ashley on 10-19-2024 Urine clarity Clear Clear [facility] Color (U)Ordered By: Live Ashley on 10-19-2024 Urine color determination Yellow Yellow [facility] Creatinine [Mass/Vol]Ordered By: Live Ashley on 10-19-2024 Serum or plasma creatinine measurement (mass/volume) 1.02 mg/dL 0.70-1.30 [facility] Emergency Department Summary on 10-19-2024 Emergency Department Summary [facility] System Medical Records Department [address] [place] [address] Emergency Department Summary 10/19/24 MR#: [id number] Acct: [id number] Name: JERALD YODER Rep #: [id number] : 1960 64 From: Live Ashley MD PCP: Dr. Linden Chavez, DO Status:REG [...] that lasted, he states about an hour. PFSH PFS Medical History Partial traumatic amputation of left [...] 104 P (more content not included)... Normal [facility] Eosinophil percentageOrdered By: Live Ashley on 10-19-2024 Eosinophil percentage 3.0 % 0-5 [facility] Epithelial cells.squamous LM Ql (Urine sed)Ordered By: Live Ashley on 10-19-2024 Squamous epithelial cells detection in urine sediment by light microscopy 0-5 SEEN /hpf 0-5 [facility] Erythrocyte distribution wid th (RBC) [Ratio]Ordered By: Live Ashley on 10-19-2024 Erythrocyte distribution width ratio 13.2 % 11.6-14.6 [facility] Erythrocyte distribution width standard deviation 38.4 fl 35.1-43.9 [facility] Estimated glomerular filtrat ion rate (GFR) AmericanOrdered By: Live Ashley on 10-19-2024 Estimated glomerular filtration rate (GFR) 94 mL/min >60 [facility] Estimation of creatinine edinson aranceOrdered By: Live Ashley on 10-19-2024 Estimation of creatinine clearance 92.21 ml/min [facility] Glomerular filtration rate ( GFR) estimationOrdered By: Live Ashley on 10-19-2024 Glomerular filtration rate (GFR) estimation 78 mL/min >60 [facility] Glucose Ql (U)Ordered By: Dipak Ashley on 10-19-2024 Urine glucose detection 1000 mg/dl High Normal W [facility] Glucose measurementOrdered B y: Live Ashley on 10-19-2024 Glucose measurement 494 mg/dL High 74-106 [facility] Glucose measurement at bedsi deOrdered By: Live Ashley on 10-19-2024 Glucose measurement at bedside 263 mg/dL High 74-106 [facility] Hematocrit Auto (Bld) [Volum e fraction]Ordered By: Live Ashley on 10-19-2024 Automated blood hematocrit (percentage) 43.9 % 40-54 [facility] Hemoglobin measurementOrdere d By: Live Ashley on 10-19-2024 Hemoglobin measurement 15.6 g/dL 13.0-16.5 [facility] Immature granulocytes/100 WB C Auto (Bld)Ordered By: Live Ashley on 10-19-2024 Automated immature granulocyte percentage 0.300 % 0.0-0.9 [facility] L501.4020on 10-19-2024 TROPONIN-I HS < 3 Low 3.0-78.0 [facility] Comment on above: Order Comment: 'TROP ' Serial specimen #1, #2 or #3: 1 Result Comment: Oleksandr lopez Note: New Test Units and Gender Specific Reference Ranges. For more information see Policy Stat Procedure [place] High Sensitivity Troponin (TNIH) and attachments. Performed By: #### L 100.0100, L500.4050 #### [facility] [place], [address] Lymphocytes Auto (Unsp spec) [#/Vol]Ordered By: Live Ashley on 10-19-2024 Absolute lymphocyte count 2.40 X10^3/uL 0.83-4.51 [facility] Lymphocytes/100 WBC Auto (Un sp spec)Ordered By: Live Ashley on 10-19-2024 Automated lymphocyte count as percentage of total leukocytes 30.0 % 19-41 [facility] MCV (RBC) [Entitic vol]Order ed By: Live Ashley on 10-19-2024 MCV (mean corpuscular volume) determination 80.0 fL 80-94 [facility] Manual differential comment Robert (Bld) [Interp]Ordered By: Live Ashley on 10-19-2024 Blood manual differential comment interpretation (narrative result) SCANNED [facility] Mean corpuscular hemoglobin (MCH) determinationOrdered By: Live Ashley on 10-19-2024 Mean corpuscular hemoglobin (MCH) determination 28.4 pg 27.0-32.0 [facility] Mean corpuscular hemoglobin concentration (MCHC) determinationOrdered By: Live Ashley on 10-19-2024 Mean corpuscular hemoglobin concentration (MCHC) determination 35.5 g/dL 32-36 [facility] Mean platelet volume determi nationOrdered By: Live Ashley on 10-19-2024 Mean platelet volume determination 10.0 fl 6.2-12.0 [facility] Monocyte percentageOrdered B y: Live Ashley on 10-19-2024 Monocyte percentage 6.6 % 0-10 [facility] Neutrophil percentageOrdered By: Live Ashley on 10-19-2024 Neutrophil percentage 59.1 % 47-70 [facility] Nucleated red blood cell per centageOrdered By: Live Ashley on 10-19-2024 Nucleated red blood cell percentage 0 % 0-5 [facility] Platelet countOrdered By: Dipak Ashley on 10-19-2024 Platelet count 150 K/mm3 150-450 [facility] Platelets LM Ql (Bld)Ordered By: Live Ashley on 10-19-2024 Platelet estimate ADEQUATE ADEQ [facility] Potassium measurementOrdered By: Live Ashley on 10-19-2024 Potassium measurement 3.7 mmol/L 3.5-5.1 [facility] RBC Auto (Bld) [#/Vol]Ordere d By: Live Ashley on 10-19-2024 Automated blood erythrocyte count 5.49 M/mm3 4.6-6.2 [facility] RBC morphology finding Nom ( Bld)Ordered By: Live Ashley on 10-19-2024 Erythrocyte morphology assessment NORM C+C NORMAL NORM C&C [facility] Serum anion gap measurementO rdered By: Live Ashley on 10-19-2024 Serum anion gap measurement 5 5-15 [facility] Sodium levelOrdered By: Stevan Ashley on 10-19-2024 Sodium level 130 mmol/L Low 136-145 [facility] Specific gravity (U) [Rel de nsity]Ordered By: Live Ashley on 10-19-2024 Urine specific gravity measurement 1.010 1.002-1.030 [facility] Troponin IOrdered By: Srinivasa Ashley on 10-19-2024 Troponin I < 3 pg/mL Low 3.0-78.0 [facility] Urea nitrogen [Mass/Vol]Orde red By: Live Ashley on 10-19-2024 Serum or plasma urea nitrogen measurement (mass/volume) 15 mg/dL 7-18 [facility] Urinalysis, Completeon 10-19 EPI,SQUAMOUS 0-5 SEEN Normal 0-5 [facility] Comment on above: Order Comment: CLEAN CATCH Performed By: #### L 400.0001 ####[facility] [address] [place], [address] BACTERIA 0 SEEN Normal None Seen [facility] Comment on above: Order Comment: CLEAN CATCH Performed By: #### L 400.0001 ####[facility] [address] [place], [address] Mucus Ql (Urine sed) 0 SEEN Normal [facility] Comment on above: Order Comment: CLEAN CATCH Performed By: #### L 400.0001 ####[facility] [address] [place], [address] RBC 0 SEEN Normal 0-5 [facility] Comment on above: Order Comment: CLEAN CATCH Performed By: #### L 400.0001 ####[facility] [address] [place], [address] WBC 0 SEEN Normal 0-5 [facility] Comment on above: Order Comment: CLEAN CATCH Performed By: #### L 400.0001 ####[facility] [address] [place], [address] Urine total bilirubin detect ion by test stripOrdered By: Live Ashley on 10-19-2024 Urine total bilirubin detection by test strip Negative Negative [facility] Urobilinogen Ql (U)Ordered B y: Live Ashley on 10-19-2024 Urine urobilinogen measurement Normal mg/dl Normal [facility] White blood cell (WBC) count Ordered By: Live Ashley on 10-19-2024 White blood cell (WBC) count 8.0 K/mm3 4.4-11.0 [facility] White blood cell countOrdere d By: Live Ashley on 10-19-2024 White blood cell count 0 SEEN /hpf W [facility] pH (U)Ordered By: Live Overton juan josé on 10-19-2024 Urine pH 6.5 5.0 - 8.0 [facility] Emergency Department Summary on 08-10-2024 Emergency Department Summary [facility] Medical Records Department [address] [place] [address] Emergency Department Summary 08/10/24 MR#: [id number] Acct: [id number] Name: JERALD YODER Rep #: [id number] : 1960 64 From: Adam Allen DO [...] He denies any recent trauma. [facility] Medical History Partial traumatic amputation of left [...] PO Q6H PRN PRN Pain 3 days 10/11/24 Unknown Rx mg tablet #12 TABLETS Allergy/AdvReac [...] pain, diarrh (more content not included)... Normal [facility] Bedside Glucoseon 05-28-2024 FINGERSTICK GLU 402 mg/dL High 74-106 [facility] Comment on above: Result Comment: TAYLOR SEALS OF PATIENT CARE PER NURSING PROTOCOL Performed By: #### L 501.080 #### [facility] [address] [place], [place], [address] Acetone Serumon 05-27-2024 ACETONE SERUM Negative Normal NEG [facility] Comment on above: Performed By: #### L 501.2450, L100.0100, L500.2500, L500.3400, L501.6900 ####[facility] [address] [place], [address] Basic Metabolic Profile (BMP )on 05-27-2024 BUN/CRE 15.5 RATIO Normal 10-20 [facility] Comment on above: Performed By: #### L 501.2450, L100.0100, L500.2500, L500.3400, L501.6900 ####[facility] [address] [place], [address] CA,Total 9.1 mg/dL Normal 8.5-10.1 [facility] Comment on above: Performed By: #### L 501.2450, L100.0100, L500.2500, L500.3400, L501.6900 ####[facility] [address] [place], [address] Chloride [Moles/Vol] 98 mmol/L Normal 98-107 [facility] Comment on above: Performed By: #### L 501.2450, L100.0100, L500.2500, L500.3400, L501.6900 ####[facility] [address] [place], [address] CO2 [Moles/Vol] 30.0 mmol/L Normal 21.0-32.0 [facility] Comment on above: Performed By: #### L 501.2450, L100.0100, L500.2500, L500.3400, L501.6900 ####[facility] [address] [place], [address] Creatinine [Mass/Vol] 1.03 mg/dL Normal 0.70-1.30 [facility] Comment on above: Result Comment: The validity of the calculated GFR GFRAA in patients over 70 years has not been determined. Clinical correlation is essential. Performed By: #### L 501.2450, L100.0100, L500.2500, L500.3400, L501.6900 ####[facility] [address] [place], [address] ECRCL 91.31 ml/min Normal [facility] Comment on above: Performed By: #### L 501.2450, L100.0100, L500.2500, L500.3400, L501.6900 ####[facility] [address] [place], [address] EST GFR - AA 94 mL/min Normal >60 [facility] Comment on above: Result Comment: Afri can Mosotho GFR Calc Performed By: #### L 501.2450, L100.0100, L500.2500, L500.3400, L501.6900 ####[facility] [address] [place], [address] GAP 7 Normal 5-15 [facility] Comment on above: Performed By: #### L 501.2450, L100.0100, L500.2500, L500.3400, L501.6900 ####[facility] [address] [place], [address] GFR/1.73 sq M.predicted among non-blacks MDRD (S/P/Bld) [Vol rate/Area] 77 mL/min/{1.73_m2} Normal >60 [facility] Comment on above: Result Comment: Non- GFR Calc Performed By: #### L 501.2450, L100.0100, L500.2500, L500.3400, L501.6900 ####[facility] [address] [place], [address] Glucose [Mass/Vol] 534 mg/dL Invalid Interpretation Code 74-106 [facility] Comment on above: Result Comment: Crit ical Result(s) Called at: 23:11:42 05/27/2024 by: Carla Townsend. Results read back by same. Glucose result greater than or equal to 200 mg/dL suggests DIABETES MELLITUS per A.D.A. criteria. Performed By: #### L 501.2450, L100.0100, L500.2500, L500.3400, L501.6900 ####[facility] [address] [place], [address] Potassium [Moles/Vol] 4.1 mmol/L Normal 3.5-5.1 [facility] Comment on above: Result Comment: Mode rate Hemolysis, Result may be falsely increased. Performed By: #### L 501.2450, L100.0100, L500.2500, L500.3400, L501.6900 ####[facility] [address] [place], [address] Sodium [Moles/Vol] 135 mmol/L Low 136-145 [facility] Comment on above: Performed By: #### L 501.2450, L100.0100, L500.2500, L500.3400, L501.6900 ####[facility] [address] [place], [address] Urea nitrogen [Mass/Vol] 16 mg/dL Normal 7-18 [facility] Comment on above: Performed By: #### L 501.2450, L100.0100, L500.2500, L500.3400, L501.6900 ####[facility] [address] [place], [address] Bedside Glucoseon 05-27-2024 FINGERSTICK GLU > 500 Invalid Interpretation Code 74-106 [facility] Comment on above: Result Comment: TAYLOR GEMENT OF PATIENT CARE PER NURSING PROTOCOL Performed By: #### L 501.080 #### [facility] [address] [place], [address] FINGERSTICK GLU 478 mg/dL Invalid Interpretation Code 74-106 [facility] Comment on above: Result Comment: Dr Susan marie Followed MANAGEMENT OF PATIENT CARE PER NURSING PROTOCOL Performed By: #### L 100.0100, L500.4050 #### [facility] [address] [place], [address] CBC W/Diff, Automatedon 07-2 Absolute Lymph 1.51 X10 3/uL Normal 0.83-4.51 [facility] Comment on above: Performed By: #### L 501.2450, L100.0100, L500.2500, L500.3400, L501.6900 ####[facility] [address] [place], [address] Absolute Neut 3.8 X10 3/uL Normal 2.0-7.7 [facility] Comment on above: Performed By: #### L 501.2450, L100.0100, L500.2500, L500.3400, L501.6900 ####[facility] [address] [place], [address] Basophils/100 WBC (Bld) 0.7 % Normal 0-1 [facility] Comment on above: Performed By: #### L 501.2450, L100.0100, L500.2500, L500.3400, L501.6900 ####[facility] [address] [place], [address] Eosinophils/100 WBC (Bld) 2.4 % Normal 0-5 [facility] Comment on above: Performed By: #### L 501.2450, L100.0100, L500.2500, L500.3400, L501.6900 ####[facility] [address] [place], [address] Erythrocyte distribution width (RBC) [Ratio] 13.4 % Normal 11.6-14.6 [facility] Comment on above: Performed By: #### L 501.2450, L100.0100, L500.2500, L500.3400, L501.6900 ####[facility] [address] [place], [address] Hematocrit (Bld) [Volume fraction] 40.4 % Normal 40-54 [facility] Comment on above: Performed By: #### L 501.2450, L100.0100, L500.2500, L500.3400, L501.6900 ####[facility] [address] [place], [address] Hemoglobin (Bld) [Mass/Vol] 14.3 g/dL Normal 13.0-16.5 [facility] Comment on above: Performed By: #### L 501.2450, L100.0100, L500.2500, L500.3400, L501.6900 ####[facility] [address] [place], [address] IG% 0.200 Normal 0.0-0.9 [facility] Comment on above: Result Comment: IG% - Immature Granulocytes (promyelocytes, myelocytes and metamyelocytes) > 1% indicates that a LEFT SHIFT is Present. Performed By: #### L 501.2450, L100.0100, L500.2500, L500.3400, L501.6900 ####[facility] [address] [place], [address] Lymphocytes/100 WBC (Bld) 25.9 % Normal 19-41 [facility] Comment on above: Performed By: #### L 501.2450, L100.0100, L500.2500, L500.3400, L501.6900 ####[facility] [address] [place], [address] MCH (RBC) [Entitic mass] 29.1 pg Normal 27.0-32.0 [facility] Comment on above: Performed By: #### L 501.2450, L100.0100, L500.2500, L500.3400, L501.6900 ####[facility] [address] [place], [address] MCHC (RBC) [Mass/Vol] 35.4 g/dL Normal 32-36 [facility] Comment on above: Performed By: #### L 501.2450, L100.0100, L500.2500, L500.3400, L501.6900 ####[facility] [address] [place], [address] MCV (RBC) [Entitic vol] 82.3 fL Normal 80-94 [facility] Comment on above: Performed By: #### L 501.2450, L100.0100, L500.2500, L500.3400, L501.6900 ####[facility] [address] [place], [address] Monocytes/100 WBC (Bld) 6.3 % Normal 0-10 [facility] Comment on above: Performed By: #### L 501.2450, L100.0100, L500.2500, L500.3400, L501.6900 ####[facility] [address] [place], [address] Neutrophils/100 WBC (Bld) 64.5 % Normal 47-70 [facility] Comment on above: Performed By: #### L 501.2450, L100.0100, L500.2500, L500.3400, L501.6900 ####[facility] [address] [place], [address] Nucleated RBC (Bld) [#/Vol] 0 10*3/uL Normal 0-5 [facility] Comment on above: Performed By: #### L 501.2450, L100.0100, L500.2500, L500.3400, L501.6900 ####[facility] [address] [place], [address] Platelet mean volume (Bld) [Entitic vol] 9.5 fL Normal 6.2-12.0 [facility] Comment on above: Performed By: #### L 501.2450, L100.0100, L500.2500, L500.3400, L501.6900 ####[facility] [address] [place], [address] Platelets (Bld) [#/Vol] 204 10*3/uL Normal 150-450 [facility] Comment on above: Performed By: #### L 501.2450, L100.0100, L500.2500, L500.3400, L501.6900 ####[facility] [address] [place], [address] RBC (Bld) [#/Vol] 4.91 10*6/uL Normal 4.6-6.2 [facility] Comment on above: Performed By: #### L 501.2450, L100.0100, L500.2500, L500.3400, L501.6900 ####[facility] [address] [place], [address] RDW SD 39.8 fl Normal 35.1-43.9 [facility] Comment on above: Performed By: #### L 501.2450, L100.0100, L500.2500, L500.3400, L501.6900 ####[facility] [address] [place], [address] WBC (Bld) [#/Vol] 5.8 10*3/uL Normal 4.4-11.0 [facility] Comment on above: Performed By: #### L 501.2450, L100.0100, L500.2500, L500.3400, L501.6900 ####[facility] [address] [place], [address] Emergency Department Summary on 05-27-2024 Emergency Department Summary [facility] Medical Records Department [address] [place] [address] Emergency Department Summary 05/27/24 MR#: [id number] Acct: [id number] Name: JERALD YODER Rep #: [id number] : 1960 64 From: Johann Lemons DO PCP: Dr. Linden Chavez, DO Status:REG ER [...] to the hospital for evaluation [facility] Medical History Partial traumatic amputation of left [...] 10 mg PO TID PRN Muscle Spasm #08/26/23 Unknown Rx TABLETS hydrocortisone 1 % topical cream 1 applic topical TID PRN skin 08/26/23 Unknown Rx irritation #28.4 grams ibuprofen 600 mg tablet 600 mg PO Q8H PRN PRN pain #08/26/23 Unknown Rx TABLETS insulin glargine 100 unit/mL [...] Respiratory Pat (more content not included)... Normal [facility] Lipaseon 05-27-2024 Lipase [Catalytic activity/Vol] 15 U/L Normal 13-75 [facility] Comment on above: Result Comment: Oleksandr lopez note: LIPASE revised reference range effective 23. New Lipase methodology. Expected to produce lower values than the previous assay method. NEW Reference Range: 13 - 75 U/L Performed By: #### L 501.080 #### [facility] [address] [place], [address] Liver Profileon 05-27-2024 Albumin [Mass/Vol] 3.3 g/dL Normal 3.2-5.0 [facility] Comment on above: Performed By: #### L 501.080 #### [facility] [address] [place], [address] ALK P 77 U/L Normal 45-117 [facility] Comment on above: Performed By: #### L 501.080 #### [facility] [address] [place], [address] ALT [Catalytic activity/Vol] 23 U/L Normal 16-61 [facility] Comment on above: Performed By: #### L 501.080 #### [facility] [address] [place], [address] AST [Catalytic activity/Vol] 27 U/L Normal 15-37 [facility] Comment on above: Result Comment: Mode rate Hemolysis, Result may be falsely increased. Performed By: #### L 501.080 #### [facility] [address] [place], [address] Bilirubin [Mass/Vol] 0.50 mg/dL Normal 0.20-1.00 [facility] Comment on above: Result Comment: For patients on eltrombopag therapy, use of Dimension [place] TBIL is not recommended. Performed By: #### L 501.080 #### [facility] [address] [place], [address] Bilirubin.direct [Mass/Vol] 0.07 mg/dL Normal 0.00-0.30 [facility] Comment on above: Performed By: #### L 501.080 #### [facility] [address] [place], [address] Globulin (S) [Mass/Vol] 3.5 g/dL Normal 2.2-4.2 [facility] Comment on above: Performed By: #### L 501.080 #### [facility] [address] [place], [address] T PROT 6.8 g/dL Normal 6.4-8.2 [facility] Comment on above: Performed By: #### L 501.080 #### [facility] [address] [place], [address] Urinalysis, Completeon 05-27 EPI,SQUAMOUS 0-5 SEEN Normal 0-5 [facility] Comment on above: Order Comment: NO CTOR TO SPECIFY Performed By: #### L 400.0001 ####[facility] [address] [place], [address] BACTERIA 0 SEEN Normal None Seen [facility] Comment on above: Order Comment: NO CTOR TO SPECIFY Performed By: #### L 400.0001 ####[facility] [address] [place], [address] Mucus Ql (Urine sed) 0 SEEN Normal [facility] Comment on above: Order Comment: NO CTOR TO SPECIFY Performed By: #### L 400.0001 ####[facility] [address] [place], [address] RBC 0 SEEN Normal 0-5 [facility] Comment on above: Order Comment: NO CTOR TO SPECIFY Performed By: #### L 400.0001 ####[facility] [address] [place], [address] WBC 0 SEEN Normal 0-5 [facility] Comment on above: Order Comment: COLLE CTOR TO SPECIFY Performed By: #### L 400.0001 ####[facility] [address] [place], [address] CBC W/Diff, Automatedon 04-30 Absolute Lymph 1.34 X10 3/uL Normal 0.83-4.51 [facility] Comment on above: Performed By: #### L 100.0100, L500.4050 #### [facility] [address] [place], [address] Absolute Neut 4.7 X10 3/uL Normal 2.0-7.7 [facility] Comment on above: Performed By: #### L 100.0100, L500.4050 #### [facility] [address] [place], [address] Basophils/100 WBC (Bld) 0.6 % Normal 0-1 [facility] Comment on above: Performed By: #### L 100.0100, L500.4050 #### [facility] [address] [place], [address] Eosinophils/100 WBC (Bld) 2.4 % Normal 0-5 [facility] Comment on above: Performed By: #### L 100.0100, L500.4050 #### [facility] [address] [place], [address] Erythrocyte distribution width (RBC) [Ratio] 13.2 % Normal 11.6-14.6 [facility] Comment on above: Performed By: #### L 100.0100, L500.4050 #### [facility] [address] [place], [address] Hematocrit (Bld) [Volume fraction] 40.4 % Normal 40-54 [facility] Comment on above: Performed By: #### L 100.0100, L500.4050 #### [facility] [address] [place], [address] Hemoglobin (Bld) [Mass/Vol] 14.1 g/dL Normal 13.0-16.5 [facility] Comment on above: Performed By: #### L 100.0100, L500.4050 #### [facility] [address] [place], [address] IG% 0.300 Normal 0.0-0.9 [facility] Comment on above: Result Comment: IG% - Immature Granulocytes (promyelocytes, myelocytes and metamyelocytes) > 1% indicates that a LEFT SHIFT is Present. Performed By: #### L 100.0100, L500.4050 #### [facility] [address] [place], [address] Lymphocytes/100 WBC (Bld) 19.7 % Normal 19-41 [facility] Comment on above: Performed By: #### L 100.0100, L500.4050 #### [facility] [address] [place], [address] MCH (RBC) [Entitic mass] 28.5 pg Normal 27.0-32.0 [facility] Comment on above: Performed By: #### L 100.0100, L500.4050 #### [facility] [address] [place], [address] MCHC (RBC) [Mass/Vol] 34.9 g/dL Normal 32-36 [facility] Comment on above: Performed By: #### L 100.0100, L500.4050 #### [facility] [address] [place], [address] MCV (RBC) [Entitic vol] 81.6 fL Normal 80-94 [facility] Comment on above: Performed By: #### L 100.0100, L500.4050 #### [facility] [address] [place], [address] Monocytes/100 WBC (Bld) 7.2 % Normal 0-10 [facility] Comment on above: Performed By: #### L 100.0100, L500.4050 #### [facility] [address] [place], [address] Neutrophils/100 WBC (Bld) 69.8 % Normal 47-70 [facility] Comment on above: Performed By: #### L 100.0100, L500.4050 #### [facility] [address] [place], [address] Nucleated RBC (Bld) [#/Vol] 0 10*3/uL Normal 0-5 [facility] Comment on above: Performed By: #### L 100.0100, L500.4050 #### [facility] [address] [place], [address] Platelet mean volume (Bld) [Entitic vol] 9.6 fL Normal 6.2-12.0 [facility] Comment on above: Performed By: #### L 100.0100, L500.4050 #### [facility] [address] [place], [address] Platelets (Bld) [#/Vol] 186 10*3/uL Normal 150-450 [facility] Comment on above: Performed By: #### L 100.0100, L500.4050 #### [facility] [address] [place], [address] RBC (Bld) [#/Vol] 4.95 10*6/uL Normal 4.6-6.2 [facility] Comment on above: Performed By: #### L 100.0100, L500.4050 #### [facility] [address] [place], [address] RDW SD 38.5 fl Normal 35.1-43.9 [facility] Comment on above: Performed By: #### L 100.0100, L500.4050 #### [facility] [address] [place], [address] WBC (Bld) [#/Vol] 6.8 10*3/uL Normal 4.4-11.0 [facility] Comment on above: Performed By: #### L 100.0100, L500.4050 #### [facility] [address] [place], [address] Comprehensive Metabolic Prof [facility] 05-18-2024 Albumin [Mass/Vol] 3.5 g/dL Normal 3.2-5.0 [facility] Comment on above: Performed By: #### L 100.0100, L500.4050 #### [facility] [address] [place], [address] Albumin/Globulin [Mass ratio] 1.0 {ratio} Normal 0.9-2.4 [facility] Comment on above: Performed By: #### L 100.0100, L500.4050 #### [facility] [address] [place], [address] ALK P 81 U/L Normal 45-117 [facility] Comment on above: Performed By: #### L 100.0100, L500.4050 #### [facility] [address] [place], [address] ALT [Catalytic activity/Vol] 18 U/L Normal 16-61 [facility] Comment on above: Performed By: #### L 100.0100, L500.4050 #### [facility] [address] [place], [address] AST [Catalytic activity/Vol] 11 U/L Low 15-37 [facility] Comment on above: Performed By: #### L 100.0100, L500.4050 #### [facility] [address] [place], [address] Bilirubin [Mass/Vol] 0.60 mg/dL Normal 0.20-1.00 [facility] Comment on above: Result Comment: For patients on eltrombopag therapy, use of Dimension [place] TBIL is not recommended. Performed By: #### L 100.0100, L500.4050 #### [facility] [address] [place], [address] BUN/CRE 19.6 RATIO Normal 10-20 [facility] Comment on above: Performed By: #### L 100.0100, L500.4050 #### [facility] [address] [place], [address] CA,Total 9.0 mg/dL Normal 8.5-10.1 [facility] Comment on above: Performed By: #### L 100.0100, L500.4050 #### [facility] [address] [place], [address] Chloride [Moles/Vol] 98 mmol/L Normal 98-107 [facility] Comment on above: Performed By: #### L 100.0100, L500.4050 #### [facility] [address] [place], [address] CO2 [Moles/Vol] 28.0 mmol/L Normal 21.0-32.0 [facility] Comment on above: Performed By: #### L 100.0100, L500.4050 #### [facility] [address] [place], [address] Creatinine [Mass/Vol] 1.07 mg/dL Normal 0.70-1.30 [facility] Comment on above: Result Comment: The validity of the calculated GFR GFRAA in patients over 70 years has not been determined. Clinical correlation is essential. Performed By: #### L 100.0100, L500.4050 #### [facility] [address] [place], [address] ECRCL 87.90 ml/min Normal [facility] Comment on above: Performed By: #### L 100.0100, L500.4050 #### [facility] [address] [place], [address] EST GFR - AA 89 mL/min Normal >60 [facility] Comment on above: Result Comment: Afri can Mosotho GFR Calc Performed By: #### L 100.0100, L500.4050 #### [facility] [address] [place], [address] GAP 8 Normal 5-15 [facility] Comment on above: Performed By: #### L 100.0100, L500.4050 #### [facility] [address] [place], [address] GFR/1.73 sq M.predicted among non-blacks MDRD (S/P/Bld) [Vol rate/Area] 74 mL/min/{1.73_m2} Normal >60 [facility] Comment on above: Result Comment: Non- GFR Calc Performed By: #### L 100.0100, L500.4050 #### [facility] [address] [place], [address] Globulin (S) [Mass/Vol] 3.4 g/dL Normal 2.2-4.2 [facility] Comment on above: Performed By: #### L 100.0100, L500.4050 #### [facility] [address] [place], [address] Glucose [Mass/Vol] 448 mg/dL High 74-106 [facility] Comment on above: Result Comment: Gluc ose result greater than or equal to 200 mg/dL suggests DIABETES MELLITUS per A.D.A. criteria. Performed By: #### L 100.0100, L500.4050 #### [facility] [address] [place], [address] Potassium [Moles/Vol] 4.1 mmol/L Normal 3.5-5.1 [facility] Comment on above: Performed By: #### L 100.0100, L500.4050 #### [facility] [address] [place], [address] Sodium [Moles/Vol] 134 mmol/L Low 136-145 [facility] Comment on above: Performed By: #### L 100.0100, L500.4050 #### [facility] [address] [place], [address] T PROT 6.9 g/dL Normal 6.4-8.2 [facility] Comment on above: Performed By: #### L 100.0100, L500.4050 #### [facility] [address] [place], [address] Urea nitrogen [Mass/Vol] 21 mg/dL High 7-18 [facility] Comment on above: Performed By: #### L 100.0100, L500.4050 #### [facility] [address] [place], [address] Emergency Department Summary on 05-18-2024 Emergency Department Summary [facility] Medical Records Department [address] [place] [address] Emergency Department Summary 05/18/24 MR#: [id number] Acct: [id number] Name: JERALD YODER Rep #: [id number] : 1960 64 From: Shania Disla MD [...] as well as Imodium intermittently. [facility] Medical History Partial traumatic amputation of left [...] Rate 16 (more content not included)... Normal [facility] CNOVon 05-10-2024 CNOV Office Visit (UCWSTR ) JERALD YODER ([id number]) 1960 M Date Time Provider Department 05/10/24 7:30 PM ROSA QUINONES [facility] During your visit today, we recorded the following information about you: Temperature Pulse Respiration Blood pressure 97.5 degrees 72/minute 20/minute 135/81 Weight 101 kg Rosa Quinones APRN.SEISMOLOGY TECHNICAL OFFICER 05/11/2024 8:47 AM Signed This note was created using [employer]. 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 Requesting ear irrigation. The history is provided by the patient. No nutrition program instructor was used. Ear Problem There is [...] Colon polyp 2013 adenomatous Coronary artery disease [place] in 1994 Diabetic neuropathy (HCC) DM (diabetes [...] Inject 82 Units subcutaneously daily before breakfast. Collabera glucose scanning reader ([facility] CLAUDIA 14 DAY READER) misc 1 Device [...] Vaping Use (more content not included)... Normal [facility] Acetone Serumon 05-08-2024 ACETONE SERUM Negative Normal NEG [facility] Comment on above: Performed By: #### L 100.0100, L500.4050 #### [facility] [address] [place], [address] Basic Metabolic Profile (BMP )on 05-08-2024 BUN/CRE 16.7 RATIO Normal 10-20 [facility] Comment on above: Performed By: #### L 100.0100, L500.4050 #### [facility] [address] [place], [address] CA,Total 9.4 mg/dL Normal 8.5-10.1 [facility] Comment on above: Performed By: #### L 100.0100, L500.4050 #### [facility] [address] [place], [address] Chloride [Moles/Vol] 94 mmol/L Low 98-107 [facility] Comment on above: Performed By: #### L 100.0100, L500.4050 #### [facility] [address] [place], [address] CO2 [Moles/Vol] 29.0 mmol/L Normal 21.0-32.0 [facility] Comment on above: Performed By: #### L 100.0100, L500.4050 #### [facility] [address] [place], [address] Creatinine [Mass/Vol] 1.08 mg/dL Normal 0.70-1.30 [facility] Comment on above: Result Comment: The validity of the calculated GFR GFRAA in patients over 70 years has not been determined. Clinical correlation is essential. Performed By: #### L 100.0100, L500.4050 #### [facility] [address] [place], [address] ECRCL 87.08 ml/min Normal [facility] Comment on above: Performed By: #### L 100.0100, L500.4050 #### [facility] [address] [place], [address] EST GFR - AA 89 mL/min Normal >60 [facility] Comment on above: Result Comment: Afri can Mosotho GFR Calc Performed By: #### L 100.0100, L500.4050 #### [facility] [address] [place], [address] GAP 9 Normal 5-15 [facility] Comment on above: Performed By: #### L 100.0100, L500.4050 #### [facility] [address] [place], [address] GFR/1.73 sq M.predicted among non-blacks MDRD (S/P/Bld) [Vol rate/Area] 73 mL/min/{1.73_m2} Normal >60 [facility] Comment on above: Result Comment: Non- GFR Calc Performed By: #### L 100.0100, L500.4050 #### [facility] [address] [place], [address] Glucose [Mass/Vol] 620 mg/dL Invalid Interpretation Code 74-106 [facility] Comment on above: Result Comment: Crit ical Result(s) Called at: 01:10:08 05/08/2024 by: Carla claudio. Results read back by same. Glucose result greater than or equal to 200 mg/dL suggests DIABETES MELLITUS per A.D.A. criteria. Performed By: #### L 100.0100, L500.4050 #### [facility] [address] [place], [address] Potassium [Moles/Vol] 3.8 mmol/L Normal 3.5-5.1 [facility] Comment on above: Performed By: #### L 100.0100, L500.4050 #### [facility] [address] [place], [address] Sodium [Moles/Vol] 132 mmol/L Low 136-145 [facility] Comment on above: Performed By: #### L 100.0100, L500.4050 #### [facility] [address] [place], [address] Urea nitrogen [Mass/Vol] 18 mg/dL Normal 7-18 [facility] Comment on above: Performed By: #### L 100.0100, L500.4050 #### [facility] [address] [place], [address] Bedside Glucoseon 05-08-2024 FINGERSTICK GLU 380 mg/dL High 74-106 [facility] Comment on above: Result Comment: TAYLOR SEALS OF PATIENT CARE PER NURSING PROTOCOL Performed By: #### L 501.080 #### [facility] [address] [place], [address] CBC W/Diff, Automatedon 07-0 9-4 Absolute Lymph 1.44 X10 3/uL Normal 0.83-4.51 [facility] Comment on above: Performed By: #### L 100.0100, L500.4050 #### [facility] [address] [place], [address] Absolute Neut 3.7 X10 3/uL Normal 2.0-7.7 [facility] Comment on above: Performed By: #### L 100.0100, L500.4050 #### [facility] [address] [place], [address] Basophils/100 WBC (Bld) 0.7 % Normal 0-1 [facility] Comment on above: Performed By: #### L 100.0100, L500.4050 #### [facility] [address] [place], [address] Eosinophils/100 WBC (Bld) 2.2 % Normal 0-5 [facility] Comment on above: Performed By: #### L 100.0100, L500.4050 #### [facility] [address] [place], [address] Erythrocyte distribution width (RBC) [Ratio] 12.8 % Normal 11.6-14.6 [facility] Comment on above: Performed By: #### L 100.0100, L500.4050 #### [facility] [address] [place], [address] Hematocrit (Bld) [Volume fraction] 41.7 % Normal 40-54 [facility] Comment on above: Performed By: #### L 100.0100, L500.4050 #### [facility] [address] [place], [address] Hemoglobin (Bld) [Mass/Vol] 14.4 g/dL Normal 13.0-16.5 [facility] Comment on above: Performed By: #### L 100.0100, L500.4050 #### [facility] [address] [place], [address] IG% 1.200 High 0.0-0.9 [facility] Comment on above: Result Comment: IG% - Immature Granulocytes (promyelocytes, myelocytes and metamyelocytes) > 1% indicates that a LEFT SHIFT is Present. Performed By: #### L 100.0100, L500.4050 #### [facility] [address] [place], [address] Lymphocytes/100 WBC (Bld) 24.4 % Normal 19-41 [facility] Comment on above: Performed By: #### L 100.0100, L500.4050 #### [facility] [address] [place], [address] MCH (RBC) [Entitic mass] 28.3 pg Normal 27.0-32.0 [facility] Comment on above: Performed By: #### L 100.0100, L500.4050 #### [facility] [address] [place], [address] MCHC (RBC) [Mass/Vol] 34.5 g/dL Normal 32-36 [facility] Comment on above: Performed By: #### L 100.0100, L500.4050 #### [facility] [address] [place], [address] MCV (RBC) [Entitic vol] 81.9 fL Normal 80-94 [facility] Comment on above: Performed By: #### L 100.0100, L500.4050 #### [facility] [address] [place], [address] Monocytes/100 WBC (Bld) 8.5 % Normal 0-10 [facility] Comment on above: Performed By: #### L 100.0100, L500.4050 #### [facility] [address] [place], [address] Neutrophils/100 WBC (Bld) 63.0 % Normal 47-70 [facility] Comment on above: Performed By: #### L 100.0100, L500.4050 #### [facility] [address] [place], [address] Nucleated RBC (Bld) [#/Vol] 0 10*3/uL Normal 0-5 [facility] Comment on above: Performed By: #### L 100.0100, L500.4050 #### [facility] [address] [place], [address] Platelet mean volume (Bld) [Entitic vol] 9.3 fL Normal 6.2-12.0 [facility] Comment on above: Performed By: #### L 100.0100, L500.4050 #### [facility] [address] [place], [address] Platelets (Bld) [#/Vol] 178 10*3/uL Normal 150-450 [facility] Comment on above: Performed By: #### L 100.0100, L500.4050 #### [facility] [address] [place], [address] RBC (Bld) [#/Vol] 5.09 10*6/uL Normal 4.6-6.2 [facility] Comment on above: Performed By: #### L 100.0100, L500.4050 #### [facility] [address] [place], [address] RDW SD 38.2 fl Normal 35.1-43.9 [facility] Comment on above: Performed By: #### L 100.0100, L500.4050 #### [facility] [address] [place], [address] WBC (Bld) [#/Vol] 5.9 10*3/uL Normal 4.4-11.0 [facility] Comment on above: Performed By: #### L 100.0100, L500.4050 #### [facility] [address] [place], [address] Chest PA and Lateralon 05-08 Chest PA and Lateral [facility] Services [address] [place] [address] Chest PA and Lateral MR#: [id number] Acct: [id number] Name: JERALD YODER Rep #: [id number] : 1960 M 64 From: Fantasma Laguerre MD PCP: Dr. Linden Chavez DO Status: DEP ER Study: Chest PA and Lateral Date of Exam: 05/08/24 Exam# [id number] Ordering [place]: [place] [id number] INDICATION: WEAKNESS EXAMINATION/TECHNIQUE: X-RAY - XR Chest [...] Dr. 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 Normal [facility] Liver Profileon 05-08-2024 Albumin [Mass/Vol] 3.5 g/dL Normal 3.2-5.0 [facility] Comment on above: Performed By: #### L 100.0100, L500.4050 #### [facility] [address] [place], [address] ALK P 77 U/L Normal 45-117 [facility] Comment on above: Performed By: #### L 100.0100, L500.4050 #### [facility] [address] [place], [address] ALT [Catalytic activity/Vol] 16 U/L Normal 16-61 [facility] Comment on above: Performed By: #### L 100.0100, L500.4050 #### [facility] [address] [place], [address] AST [Catalytic activity/Vol] 23 U/L Normal 15-37 [facility] Comment on above: Performed By: #### L 100.0100, L500.4050 #### [facility] [address] [place], [address] Bilirubin [Mass/Vol] 0.50 mg/dL Normal 0.20-1.00 [facility] [facility] Comment on above: Result Comment: For patients on eltrombopag therapy, use of Dimension [place] TBIL is not recommended. Performed By: #### L 100.0100, L500.4050 #### [facility] [address] [place], [address] Bilirubin.direct [Mass/Vol] 0.18 mg/dL Normal 0.00-0.30 [facility] Comment on above: Performed By: #### L 100.0100, L500.4050 #### [facility] [address] [place], [address] Globulin (S) [Mass/Vol] 3.4 g/dL Normal 2.2-4.2 [facility] Comment on above: Performed By: #### L 100.0100, [id number] #### [facility] [address] [place], [address] T PROT 6.9 g/dL Normal 6.4-8.2 [facility] Comment on above: Performed By: #### L 100.0100, [id number] #### [facility] [address] [place], [address] Urinalysis, Completeon 05-08 BACTERIA 0 SEEN Normal None Seen [facility] Comment on above: Order Comment: CLEAN CATCH Performed By: #### L 501.080 #### [facility] [address] [place], [address] EPI,SQUAMOUS 0 SEEN Normal 0-5 [facility] Comment on above: Order Comment: CLEAN CATCH Performed By: #### L 501.080 #### [facility] [address] [place], [address] Mucus Ql (Urine sed) 0 SEEN Normal [facility] Comment on above: Order Comment: CLEAN CATCH Performed By: #### L 501.080 #### [facility] [address] [place], [address] RBC 0 SEEN Normal 0-5 [facility] Comment on above: Order Comment: CLEAN CATCH Performed By: #### L 501.080 #### [facility] [address] [place], [place], [id number] WBC 0 SEEN Normal 0-5 [facility] Comment on above: Order Comment: CLEAN CATCH Performed By: #### L 501.080 #### [facility] [address] [place], [place], [id number] Absolute lymphocyte countOrd ered By: Johann Lemons on 03-08-2024 Lymphocytes Auto (Unsp spec) [#/Vol] 1.65 10*3/uL 0.83-4.51 [facility] Automated lymphocyte count a s percentage of total leukocytesOrdered By: Johann Lemons on 03-08-2024 Lymphocytes/100 WBC Auto (Unsp spec) 22.8 % 19-41 [facility] Basophil percentageOrdered B y: Johann Lemons on 03-08-2024 Basophils/100 WBC (Bld) 0.6 % 0-1 [facility] Bilirubin [Mass/Vol] 0.60 mg/dL 0.20-1.00 [facility] Comment on above: For patients on eltr ombopag therapy, use of Dimension [place] TBIL is not recommended. Chloride [Moles/Vol] 97 mmol/L 98-107 [facility] Eosinophils/100 WBC (Bld) 3.9 % 0-5 [facility] Glucose [Mass/Vol] 520 mg/dL 74-106 [facility] Comment on above: Critical Result(s) C alled at: 07:30:39 03/08/2024 by: Darrell Santos to Dawna Vazquez. Results read back by same.Glucose result greater than or equal to 200 mg/dLsuggests DIABETES MELLITUS per A.D.A. criteria. Hemoglobin (Bld) [Mass/Vol] 14.8 g/dL 13.0-16.5 [facility] Monocytes/100 WBC (Bld) 6.9 % 0-10 [facility] Neutrophils (Bld) [#/Vol] 4.8 10*3/uL 2.0-7.7 [facility] Neutrophils/100 WBC (Bld) 65.4 % 47-70 [facility] Potassium [Moles/Vol] 4.0 mmol/L 3.5-5.1 [facility] Protein [Mass/Vol] 7.2 g/dL 6.4-8.2 [facility] Sodium [Moles/Vol] 134 mmol/L 136-145 [facility] WBC (Bld) [#/Vol] 7.3 10*3/uL 4.4-11.0 [facility] Determination of erythrocyte mean corpuscular volume (MCV)Ordered By: Johann Lemons on 03-08-2024 MCV (RBC) [Entitic vol] 82.2 fL 80-94 [facility] Direct bilirubinOrdered By: Johann Lemons on 03-08-2024 Bilirubin.direct [Mass/Vol] 0.19 mg/dL 0.00-0.30 [facility] Erythrocyte distribution wid th ratioOrdered By: Johann Lemons on 03-08-2024 Erythrocyte distribution width (RBC) [Ratio] 13.3 % 11.6-14.6 [facility] Erythrocyte distribution wid th standard deviationOrdered By: Johann Lemons on 03-08-2024 Erythrocyte distribution width (RBC) [Entitic vol] 39.7 fL 35.1-43.9 [facility] Hematocrit Auto (Bld) [Volum e fraction]Ordered By: Johann Lemons on 03-08-2024 Hematocrit (Bld) [Volume fraction] 42.9 % 40-54 [facility] Immature granulocytes/100 WB C Auto (Bld)Ordered By: Johann Lemons on 03-08-2024 Immature granulocytes/100 WBC (Bld) 0.400 % 0.0-0.9 [facility] Comment on above: IG% - Immature Granu locytes (promyelocytes, myelocytes and metamyelocytes) > 1% indicates that a LEFT SHIFT is Present. Laboratory - Chemistry and C hemistry - challengeOrdered By: Johann Lemons on 03-08-2024 ALP [Catalytic activity/Vol] 84 U/L 45-117 [facility] ALT [Catalytic activity/Vol] 22 U/L 16-61 [facility] CO2 [Moles/Vol] 31.0 mmol/L 21.0-32.0 [facility] Globulin (S) [Mass/Vol] 3.5 g/dL 2.2-4.2 [facility] Lipase [Catalytic activity/Vol] 17 U/L 13-75 [facility] Comment on above: Please note:LIPASE r evised reference range effective 23. New Lipase methodology. Expected to produce lower values than the previous assay method. NEW Reference Range: 13 - 75 U/L Urea nitrogen/Creatinine [Mass ratio] 16.7 mg/mg 10-20 [facility] - Hematology and Cell countsOrdered By: Johann Lemons on 03-08-2024 MCH (RBC) [Entitic mass] 28.4 pg 27.0-32.0 [facility] MCHC (RBC) [Mass/Vol] 34.5 g/dL 32-36 [facility] Nucleated RBC/100 WBC (Bld) [Ratio] 0 % 0-5 [facility] Platelet mean volume (Bld) [Entitic vol] 9.6 fL 6.2-12.0 [facility] Platelets (Bld) [#/Vol] 194 10*3/uL 150-450 [facility] No Panel InformationOrdered By: Johann Lemons on 03-08-2024 Estimated Creatinine Clearance Calc 99.26 ml/min [facility] Estimated GFR (MDRD) Amer 102 mL/min >60 [facility] Comment on above: GFR Calc Estimated GFR (MDRD) Non-Af Amer 84 mL/min >60 [facility] Comment on above: Non- GFR Calc RBC Auto (Bld) [#/Vol]Ordere d By: Johann Lemons on 03-08-2024 RBC (Bld) [#/Vol] 5.22 10*6/uL 4.6-6.2 [facility] Serum or plasma calcium yayo urement (mass/volume)Ordered By: Johann Lemons on 03-08-2024 Calcium [Mass/Vol] 9.5 mg/dL 8.5-10.1 [facility] Serum or plasma creatinine m easurement (mass/volume)Ordered By: Johann Lemons on 05-09-2024 Creatinine [Mass/Vol] 0.96 mg/dL 0.70-1.30 [facility] Comment on above: The validity of the calculated GFR & GFRAA in patients over 70 years has not been determined. Clinical correlation is essential. Serum or plasma urea nitroge n measurement (mass/volume)Ordered By: Johann Lemons on 03-08-2024 Urea nitrogen [Mass/Vol] 16 mg/dL 7-18 [facility] Thin prep Papanicolaou smear with manual screeningOrdered By: Johann Lemons on 03-08-2024 Thin prep Papanicolaou smear with manual screening 3.7 g/dL 3.2-5.0 [facility] Thin prep Papanicolaou smear with manual screening 12 U/L 15-37 [facility] Thin prep Papanicolaou smear with manual screening 6 5-15 [facility] Absolute lymphocyte countOrd ered By: Keenan Wu on 02-07-2024 Lymphocytes Auto (Unsp spec) [#/Vol] 1.71 10*3/uL 0.83-4.51 [facility] Automated lymphocyte count a s percentage of total leukocytesOrdered By: Keenan Wu on 02-07-2024 Lymphocytes/100 WBC Auto (Unsp spec) 17.4 % 19-41 [facility] Basophil percentageOrdered B y: Keenan Wu on 02-07-2024 Basophil percentage 0 SEEN /hpf 0-5 [facility] Basophils/100 WBC (Bld) 0.5 % 0-1 [facility] Bilirubin [Mass/Vol] 0.60 mg/dL 0.20-1.00 [facility] Comment on above: For patients on eltr ombopag therapy, use of Dimension [place] TBIL is not recommended. Chloride [Moles/Vol] 98 mmol/L 98-107 [facility] Eosinophils/100 WBC (Bld) 3.1 % 0-5 [facility] Glucose [Mass/Vol] 461 mg/dL 74-106 [facility] Comment on above: Critical Result(s) C alled at: 21:52:34 02/07/2024 by: GLORIA MORA TO MMARTIN2. Results read back by same.Glucose result greater than or equal to 200 mg/dLsuggests DIABETES MELLITUS per A.D.A. criteria. Hemoglobin (Bld) [Mass/Vol] 15.4 g/dL 13.0-16.5 [facility] Monocytes/100 WBC (Bld) 5.4 % 0-10 [facility] Neutrophils (Bld) [#/Vol] 7.2 10*3/uL 2.0-7.7 [facility] Neutrophils/100 WBC (Bld) 73.2 % 47-70 [facility] Potassium [Moles/Vol] 3.9 mmol/L 3.5-5.1 [facility] Protein [Mass/Vol] 7.5 g/dL 6.4-8.2 [facility] Sodium [Moles/Vol] 134 mmol/L 136-145 [facility] WBC (Bld) [#/Vol] 9.9 10*3/uL 4.4-11.0 [facility] Bilirubin Test strip Ql (U)O rdered By: Keenan Wu on 02-07-2024 Bilirubin Ql (U) Negative Negative [facility] Determination of erythrocyte mean corpuscular volume (MCV)Ordered By: Keenan Wu on 02-07-2024 MCV (RBC) [Entitic vol] 82.1 fL 80-94 [facility] Erythrocyte distribution wid th ratioOrdered By: Keenan Wu on 02-07-2024 Erythrocyte distribution width (RBC) [Ratio] 13.6 % 11.6-14.6 [facility] Erythrocyte distribution wid th standard deviationOrdered By: Keenan Wu on 02-07-2024 Erythrocyte distribution width (RBC) [Entitic vol] 40.1 fL 35.1-43.9 [facility] Hematocrit Auto (Bld) [Volum e fraction]Ordered By: Keenan Wu on 02-07-2024 Hematocrit (Bld) [Volume fraction] 44.1 % 40-54 [facility] Immature granulocytes/100 WB C Auto (Bld)Ordered By: Keenan Wu on 02-07-2024 Immature granulocytes/100 WBC (Bld) 0.400 % 0.0-0.9 [facility] Comment on above: IG% - Immature Granu locytes (promyelocytes, myelocytes and metamyelocytes) > 1% indicates that a LEFT SHIFT is Present. Ketones Test strip Ql (U)Ord ered By: Keenan Wu on 02-07-2024 Ketones Ql (U) Negative Negative [facility] - Chemistry and C hemistry - challengeOrdered By: Keenan Wu on 02-07-2024 Albumin/Globulin [Mass ratio] 1.1 {ratio} 0.9-2.4 [facility] ALP [Catalytic activity/Vol] 105 U/L 45-117 [facility] ALT [Catalytic activity/Vol] 20 U/L 16-61 [facility] CO2 [Moles/Vol] 30.0 mmol/L 21.0-32.0 [facility] Globulin (S) [Mass/Vol] 3.6 g/dL 2.2-4.2 [facility] Urea nitrogen/Creatinine [Mass ratio] 17.4 mg/mg 10-20 [facility] - Drug toxicology Ordered By: Keenan Wu on 02-07-2024 Amphetamines Ql (U) Negative <1000 ng/mL [facility] Benzodiazepines Ql (U) Negative < 200 ng/mL [facility] Cannabinoids Screen Ql (U) Negative < 50 ng/mL [facility] Cocaine Ql (U) Negative < 300 ng/mL [facility] Opiates Ql (U) Negative < 300 ng/mL [facility] - Hematology and Cell countsOrdered By: Keenan Wu on 02-07-2024 MCH (RBC) [Entitic mass] 28.7 pg 27.0-32.0 [facility] MCHC (RBC) [Mass/Vol] 34.9 g/dL 32-36 [facility] Nucleated RBC/100 WBC (Bld) [Ratio] 0 % 0-5 [facility] Platelet mean volume (Bld) [Entitic vol] 9.6 fL 6.2-12.0 [facility] Platelets (Bld) [#/Vol] 255 10*3/uL 150-450 [facility] Mucus LM Ql (Urine sed)Order ed By: Keenan Wu on 02-07-2024 Mucus Ql (Urine sed) 0 SEEN /hpf [facility] Nitrite Test strip Ql (U)Ord ered By: Keenan Wu on 02-07-2024 Nitrite Ql (U) Negative Negative [facility] No Panel InformationOrdered By: Keenan Wu on 02-07-2024 Ethyl Alcohol Level < 3.0 mg/dL [facility] Comment on above: The serum:whole bloo d ethanol ratio is approximately 1.14and varies slightly with hematocrit. Medical Alcohol reference interval and critical value innon-tolerant individuals; 50 - 100 Impairment 100 Intoxication 100 - 250 Severe Poisoning 250 - 400 Deep/possible fatal coma MDMA (Ecstasy) Screen Negative < 500 ng/mL [facility] Urine Barbiturates Screen Negative < 200 ng/mL [facility] Urine Drug Screen Comment [facility] Comment on above: CONFIRMATORY TESTING FOR ALL [...] Methadone Screen Negative < 300 ng/mL [facility] Urine RBC 0 SEEN /hpf 0-5 [facility] Estimated Creatinine Clearance Calc 87.42 ml/min [facility] Estimated GFR (MDRD) Amer 88 mL/min >60 [facility] Comment on above: GFR Calc Estimated GFR (MDRD) Non-Af Amer 72 mL/min >60 [facility] Comment on above: Non- GFR Calc Protein Test strip Ql (U)Ord ered By: Keenan Wu on 02-07-2024 Protein Ql (U) 15 mg/dl Negative [facility] RBC Auto (Bld) [#/Vol]Ordere d By: Keenan Wu on 02-07-2024 RBC (Bld) [#/Vol] 5.37 10*6/uL 4.6-6.2 [facility] Serum or plasma calcium yayo urement (mass/volume)Ordered By: Keenan Wu on 02-07-2024 Calcium [Mass/Vol] 10.2 mg/dL 8.5-10.1 [facility] Serum or plasma creatinine m easurement (mass/volume)Ordered By: Keenan Wu on 02-07-2024 Creatinine [Mass/Vol] 1.09 mg/dL 0.70-1.30 [facility] Comment on above: The validity of the calculated GFR & GFRAA in patients over 70 years has not been determined. Clinical correlation is essential. Serum or plasma urea nitroge n measurement (mass/volume)Ordered By: eKenan Wu on 02-07-2024 Urea nitrogen [Mass/Vol] 19 mg/dL 7-18 [facility] Squamous epithelial cells de tection in urine sediment by light microscopyOrdered By: Keenan Wu on 02-07-2024 Epithelial cells.squamous LM Ql (Urine sed) 0 SEEN /hpf 0-5 [facility] Thin prep Papanicolaou smear with manual screeningOrdered By: Keenan Wu on 02-07-2024 Thin prep Papanicolaou smear with manual screening 379 mg/dL 74-106 [facility] Comment on above: MANAGEMENT OF PATIEN T CARE PER NURSING PROTOCOL Thin prep Papanicolaou smear with manual screening 3.9 g/dL 3.2-5.0 [facility] Thin prep Papanicolaou smear with manual screening 12 U/L 15-37 [facility] Thin prep Papanicolaou smear with manual screening 6 5-15 [facility] Urine blood detectionOrdered By: Keenan Wu on 02-07-2024 RBC Ql (U) Negative Negative [facility] Urine clarityOrdered By: Osvaldo Wu on 02-07-2024 Clarity (U) Clear Clear [facility] Urine color determinationOrd ered By: Keenan Wu on 02-07-2024 Color (U) Yellow Yellow [facility] Urine glucose detectionOrder ed By: Keenan Wu on 02-07-2024 Glucose Ql (U) 1000 mg/dl Normal [facility] Urine leukocyte esterase det ection by dipstickOrdered By: Keenan Wu on 02-07-2024 Leukocyte esterase Test strip Ql (U) Negative Negative [facility] Urine pHOrdered By: Keenan overton on 02-07-2024 pH (U) 6.0 [pH] 5.0 - 8.0 [facility] Urine phencyclidine (PCP) de tectionOrdered By: Keenan Wu on 02-07-2024 Phencyclidine Ql (U) Negative < 25 ng/mL [facility] Urine sediment bacteria coun t by microscopy (number/high power field)Ordered By: Keenan Wu on 02-07-2024 Bacteria LM.HPF (Urine sed) [#/Area] 0 /[HPF] None Seen [facility] Urine specific gravity measu rementOrdered By: Keenan Wu on 02-07-2024 Specific gravity (U) [Rel density] 1.015 1.002-1.030 [facility] Urine urobilinogen measureme ntOrdered By: Keenan Wu on 02-07-2024 Urobilinogen Ql (U) Normal mg/dl Normal [facility] Amorphous sediment detection in urine sediment by light microscopyOrdered By: Shania Disla on 01-27-2024 Amorphous sediment LM Ql (Urine sed) 0 SEEN [facility] Basophil percentageOrdered B y: Shania Disla on 01-27-2024 Basophil percentage 0 SEEN /hpf 0-5 [facility] Bilirubin Test strip Ql (U)O rdered By: Shania Disla on 01-27-2024 Bilirubin Ql (U) Negative Negative [facility] Calcium oxalate crystals det ection in urine sediment by light microscopyOrdered By: Shania Disla on 01-27-2024 Calcium oxalate crystals LM Ql (Urine sed) 0 SEEN /hpf [facility] Hyaline casts LM.LPF (Urine sed) [#/Area]Ordered By: Shania Disla on 01-27-2024 Hyaline casts (Urine sed) [#/Area] 0 /[LPF] 0-5 [facility] Ketones Test strip Ql (U)Ord ered By: Shania Disla on 01-27-2024 Ketones Ql (U) Negative Negative [facility] Magnesium ammonium phosphate crystal detectionOrdered By: Shania Disla on 01-27-2024 Triple phosphate crystals LM Ql (Urine sed) 0 SEEN /hpf [facility] Mucus LM Ql (Urine sed)Order ed By: Shania Disla on 01-27-2024 Mucus Ql (Urine sed) 0 SEEN /hpf [facility] Nitrite Test strip Ql (U)Ord ered By: Shania Disla on 01-27-2024 Nitrite Ql (U) Negative Negative [facility] No Panel InformationOrdered By: Shania Disla on 01-27-2024 Urine RBC 0 SEEN /hpf 0-5 [facility] Protein Test strip Ql (U)Ord ered By: Shania Disla on 01-27-2024 Protein Ql (U) Negative Negative [facility] Squamous epithelial cells de tection in urine sediment by light microscopyOrdered By: Shania Disla on 01-27-2024 Epithelial cells.squamous LM Ql (Urine sed) 5-10 SEEN /hpf 0-5 [facility] Thin prep Papanicolaou smear with manual screeningOrdered By: Shania Disla on 01-27-2024 Thin prep Papanicolaou smear with manual screening 277 mg/dL 74-106 [facility] Comment on above: MANAGEMENT OF PATIEN T CARE PER NURSING PROTOCOL Urine blood detectionOrdered By: Shania Disla on 01-27-2024 RBC Ql (U) Negative Negative [facility] Urine clarityOrdered By: Anamaria Disla on 01-27-2024 Clarity (U) Clear Clear [facility] Urine coarse granular cast d etectionOrdered By: Shania Disla on 01-27-2024 Coarse Granular Casts LM Ql (Urine sed) 0 SEEN /lpf 0-5 /lpf [facility] Urine color determinationOrd ered By: Shania Disla on 01-27-2024 Color (U) Straw Yellow [facility] Urine glucose detectionOrder ed By: Shania Disla on 01-27-2024 Glucose Ql (U) 1000 mg/dl Normal [facility] Urine leukocyte esterase det ection by dipstickOrdered By: Shania Disla on 01-27-2024 Leukocyte esterase Test strip Ql (U) Negative Negative [facility] Urine pHOrdered By: Shania Disla on 01-27-2024 pH (U) 6.0 [pH] 5.0 - 8.0 [facility] Urine sediment Trichomonas s pecies count by microscopy (number/low power field)Ordered By: Shania Disla on 01-27-2024 Trichomonas sp LM.LPF (Urine sed) [#/Area] 0 SEEN /hpf None Seen [facility] Urine sediment bacteria coun t by microscopy (number/high power field)Ordered By: Shania Disla on 01-27-2024 Bacteria LM.HPF (Urine sed) [#/Area] 0 /[HPF] None Seen [facility] Urine sediment erythrocyte c ast detection by light microscopyOrdered By: Shania Disla on 01-27-2024 RBC casts LM Ql (Urine sed) 0 SEEN /lpf None Seen [facility] Urine sediment fine granular cast count by microscopy (number/low power field)Ordered By: Shania Disla on 01-27-2024 Fine Granular Casts LM.LPF (Urine sed) [#/Area] 0 SEEN /lpf 0-5 [facility] Urine sediment leukocyte pooja t count by microscopy (number/low power field)Ordered By: Shania Disla on 01-27-2024 WBC casts LM.LPF (Urine sed) [#/Area] 0 SEEN /lpf None Seen [facility] Urine sediment unidentified crystal count by microscopy (number/high powered field)Ordered By: Shania Disla on 01-27-2024 Unidentified crystals LM.HPF (Urine sed) [#/Area] 0 SEEN /hpf None Seen [facility] Urine sediment uric acid cry stal count by microscopy (number/high power field)Ordered By: Shania Disla on 01-27-2024 Urate crystals LM.HPF (Urine sed) [#/Area] 0 /[HPF] [facility] Urine sediment yeast count b y microscopy (number/high powered field)Ordered By: Shania Disla on 01-27-2024 Yeast LM.HPF (Urine sed) [#/Area] RARE /hpf None Seen [facility] Urine specific gravity measu rementOrdered By: Shania Disla on 01-27-2024 Specific gravity (U) [Rel density] 1.015 1.002-1.030 [facility] Urine urobilinogen measureme ntOrdered By: Shania Disla on 01-27-2024 Urobilinogen Ql (U) Normal mg/dl Normal [facility] Waxy casts detection in urin e sediment by light microscopyOrdered By: Shania Disla on 01-27-2024 Waxy casts LM Ql (Urine sed) 0 SEEN /lpf None Seen [facility] Absolute lymphocyte countOrd ered By: Shania Disla on 01-26-2024 Lymphocytes Auto (Unsp spec) [#/Vol] 0.82 10*3/uL 0.83-4.51 [facility] Automated lymphocyte count a s percentage of total leukocytesOrdered By: Shania Disla on 01-26-2024 Lymphocytes/100 WBC Auto (Unsp spec) 8.4 % 19-41 [facility] Basophil percentageOrdered B y: Shania Disla on 01-26-2024 Basophils/100 WBC (Bld) 0.2 % 0-1 [facility] Bilirubin [Mass/Vol] 0.70 mg/dL 0.20-1.00 [facility] Comment on above: For patients on eltr ombopag therapy, use of Dimension [place] TBIL is not recommended. Chloride [Moles/Vol] 100 mmol/L 98-107 [facility] Eosinophils/100 WBC (Bld) 1.8 % 0-5 [facility] Glucose [Mass/Vol] 553 mg/dL 74-106 [facility] Comment on above: Glucose result great er than or equal to 200 mg/dLsuggests DIABETES MELLITUS per A.D.A. criteria. Hemoglobin (Bld) [Mass/Vol] 14.3 g/dL 13.0-16.5 [facility] Monocytes/100 WBC (Bld) 6.3 % 0-10 [facility] Neutrophils (Bld) [#/Vol] 8.1 10*3/uL 2.0-7.7 [facility] Neutrophils/100 WBC (Bld) 83.0 % 47-70 [facility] Potassium [Moles/Vol] 4.2 mmol/L 3.5-5.1 [facility] Protein [Mass/Vol] 6.8 g/dL 6.4-8.2 [facility] Sodium [Moles/Vol] 135 mmol/L 136-145 [facility] Comment on above: Critical Result(s) C alled at: 00:43:16 01/27/2024 by: Britney Beasley to [employer]. Results read back by same. WBC (Bld) [#/Vol] 9.8 10*3/uL 4.4-11.0 [facility] Determination of erythrocyte mean corpuscular volume (MCV)Ordered By: Shania Disla on 01-26-2024 MCV (RBC) [Entitic vol] 82.4 fL 80-94 [facility] Direct bilirubinOrdered By: Shania Disla on 01-26-2024 Bilirubin.direct [Mass/Vol] 0.20 mg/dL 0.00-0.30 [facility] Erythrocyte distribution wid th ratioOrdered By: Shania Disla on 01-26-2024 Erythrocyte distribution width (RBC) [Ratio] 13.4 % 11.6-14.6 [facility] Erythrocyte distribution wid th standard deviationOrdered By: Shania Disla on 01-26-2024 Erythrocyte distribution width (RBC) [Entitic vol] 39.9 fL 35.1-43.9 [facility] Hematocrit Auto (Bld) [Volum e fraction]Ordered By: Shania Disla on 01-26-2024 Hematocrit (Bld) [Volume fraction] 40.8 % 40-54 [facility] Immature granulocytes/100 WB C Auto (Bld)Ordered By: Shania Disla on 01-26-2024 Immature granulocytes/100 WBC (Bld) 0.300 % 0.0-0.9 [facility] Comment on above: IG% - Immature Granu locytes (promyelocytes, myelocytes and metamyelocytes) > 1% indicates that a LEFT SHIFT is Present. Laboratory - Chemistry and C hemistry - challengeOrdered By: Shania Disla on 01-26-2024 ALP [Catalytic activity/Vol] 71 U/L 45-117 [facility] ALT [Catalytic activity/Vol] 24 U/L 16-61 [facility] CO2 [Moles/Vol] 30.0 mmol/L 21.0-32.0 [facility] Globulin (S) [Mass/Vol] 3.2 g/dL 2.2-4.2 [facility] Urea nitrogen/Creatinine [Mass ratio] 12.5 mg/mg 10-20 [facility] - Hematology and Cell countsOrdered By: Shania Disla on 01-26-2024 MCH (RBC) [Entitic mass] 28.9 pg 27.0-32.0 [facility] MCHC (RBC) [Mass/Vol] 35.0 g/dL 32-36 [facility] Nucleated RBC/100 WBC (Bld) [Ratio] 0 % 0-5 [facility] Platelet mean volume (Bld) [Entitic vol] 9.4 fL 6.2-12.0 [facility] Platelets (Bld) [#/Vol] 167 10*3/uL 150-450 [facility] - Microbiology an d Antimicrobial susceptibilityOrdered By: Shania Disla on 01-26-2024 SARS-CoV-2 (COVID-19) RNA IOANA+probe Ql (Unsp spec) [facility] No Panel InformationOrdered By: Shania Disla on 01-26-2024 Estimated Creatinine Clearance Calc 85.08 ml/min [facility] Estimated GFR (MDRD) Amer 85 mL/min >60 [facility] Comment on above: GFR Calc Estimated GFR (MDRD) Non-Af Amer 70 mL/min >60 [facility] Comment on above: Non- GFR Calc RBC Auto (Bld) [#/Vol]Ordere d By: Shania Disla on 01-26-2024 RBC (Bld) [#/Vol] 4.95 10*6/uL 4.6-6.2 [facility] Serum or plasma acetone yayo urement (mass/volume)Ordered By: Shania Disla on 01-26-2024 Acetone [Mass/Vol] Negative NEG [facility] Serum or plasma calcium yayo urement (mass/volume)Ordered By: Shania Disla on 01-26-2024 Calcium [Mass/Vol] 9.3 mg/dL 8.5-10.1 [facility] Serum or plasma creatinine m easurement (mass/volume)Ordered By: Shania Disla on 01-26-2024 Creatinine [Mass/Vol] 1.12 mg/dL 0.70-1.30 [facility] Comment on above: The validity of the calculated GFR & GFRAA in patients over 70 years has not been determined. Clinical correlation is essential. Serum or plasma urea nitroge n measurement (mass/volume)Ordered By: Shania Disla on 01-26-2024 Urea nitrogen [Mass/Vol] 14 mg/dL 7-18 [facility] Thin prep Papanicolaou smear with manual screeningOrdered By: Shania Disla on 01-26-2024 Thin prep Papanicolaou smear with manual screening 3.6 g/dL 3.2-5.0 [facility] Thin prep Papanicolaou smear with manual screening 16 U/L 15-37 [facility] Thin prep Papanicolaou smear with manual screening 5 5-15 [facility] Erythrocyte sedimentation ra teOrdered By: Linden Chavez on 01-05-2024 ESR (Bld) [Velocity] 3 mm/h 0-20 [facility] No Panel InformationOrdered By: Linden Chavez on 01-05-2024 C-Reactive Protein Extended Range 3.41 mg/L 0.0-3.0 [facility] Comment on above: C-Reactive Protein ( CRP) provides useful information for thediagnosis, therapy and monitoring of inflammatory processesand associated diseases. For the evaluation of Relative Riskfor Cardiovascular Disease, a High Sensitivity CRP (HSCRP)should be ordered. Endomysial IgA Antibody Negative Negative [facility] Serum or plasma IgA measurem ent (mass/volume)Ordered By: Linden Chavez on 01-05-2024 IgA [Mass/Vol] 363 mg/dL 61-437 [facility] Comment on above: Performed at: [place] [id number] Director: Rasheed Denney PhD, Phone: [phone] Serum or plasma thyroid stim ulating hormone (TSH) measurement (units/volume)Ordered By: Linden Chavez on 01-05-2024 TSH Qn 8.45 uIU/mL 0.358-3.74 [facility] Serum tissue transglutaminas e IgA antibody assay (units/volume)Ordered By: Linden Chavez on 01-05-2024 tTG IgA Qn (S) <2 U/mL 0-3 [facility] Comment on above: Negative 0 - 3 Weak Positive 4 - 10 Positive >10 Tissue Transglutaminase (tTG) has been identified as the endomysial antigen. Studies have demonstr- ated that endomysial IgA antibodies have over 99% specificity for gluten sensitive enteropathy. Whole blood hemoglobin A1c/t otal hemoglobin ratio (mass fraction)Ordered By: Linden Chavez on 01-05-2024 HbA1c (Bld) [Mass fraction] 12.2 % 3.8-5.6 [facility] Comment on above: Normal < 5.7 % Predi abetic 5.7 - 6.4 % Diabetic >or= 6.5 % Please note range changes. Basophil percentageOrdered B y: Shania Disla on 12-25-2023 Chloride [Moles/Vol] 102 mmol/L 98-107 [facility] Glucose [Mass/Vol] 476 mg/dL 74-106 [facility] Comment on above: Critical Result(s) C alled at: 09:52:20 12/25/2023 by: Santana Gaytan to Gabriela KOENIG (ER). Results read back by same.Glucose result greater than or equal to 200 mg/dLsuggests DIABETES MELLITUS per A.D.A. criteria. Potassium [Moles/Vol] 3.8 mmol/L 3.5-5.1 [facility] Sodium [Moles/Vol] 134 mmol/L 136-145 [facility] Laboratory - Chemistry and C hemistry - challengeOrdered By: Shania Disla on 12-25-2023 CO2 [Moles/Vol] 28.0 mmol/L 21.0-32.0 [facility] Urea nitrogen/Creatinine [Mass ratio] 16.5 mg/mg 10-20 [facility] No Panel InformationOrdered By: Shania Disla on 12-25-2023 Estimated Creatinine Clearance Calc 82.86 ml/min [facility] Estimated GFR (MDRD) Amer 82 mL/min >60 [facility] Comment on above: GFR Calc Estimated GFR (MDRD) Non-Af Amer 68 mL/min >60 [facility] Comment on above: Non- GFR Calc Serum or plasma calcium yayo urement (mass/volume)Ordered By: Shania Disla on 12-25-2023 Calcium [Mass/Vol] 9.3 mg/dL 8.5-10.1 [facility] Serum or plasma creatinine m easurement (mass/volume)Ordered By: Shania Disla on 12-25-2023 Creatinine [Mass/Vol] 1.15 mg/dL 0.70-1.30 [facility] Comment on above: The validity of the calculated GFR & GFRAA in patients over 70 years has not been determined. Clinical correlation is essential. Serum or plasma urea nitroge n measurement (mass/volume)Ordered By: Shania Disla on 12-25-2023 Urea nitrogen [Mass/Vol] 19 mg/dL 7-18 [facility] Thin prep Papanicolaou smear with manual screeningOrdered By: Shania Disla on 12-25-2023 Thin prep Papanicolaou smear with manual screening 354 mg/dL 74-106 [facility] Comment on above: MANAGEMENT OF PATIEN T CARE PER NURSING PROTOCOL Thin prep Papanicolaou smear with manual screening 4 5-15 [facility] Absolute lymphocyte countOrd ered By: Barry Mathew on 11-22-2023 Lymphocytes Auto (Unsp spec) [#/Vol] 1.40 10*3/uL 0.83-4.51 [facility] Automated lymphocyte count a s percentage of total leukocytesOrdered By: Barry Mathew on 11-22-2023 Lymphocytes/100 WBC Auto (Unsp spec) 18.9 % 19-41 [facility] Basophil percentageOrdered B y: Barry Mathew on 11-22-2023 Basophil percentage 0-5 SEEN /hpf 0-5 [facility] Basophils/100 WBC (Bld) 0.4 % 0-1 [facility] Bilirubin [Mass/Vol] 0.80 mg/dL 0.20-1.00 [facility] Comment on above: For patients on eltr ombopag therapy, use of Dimension [place] TBIL is not recommended. Chloride [Moles/Vol] 101 mmol/L 98-107 [facility] Eosinophils/100 WBC (Bld) 4.5 % 0-5 [facility] Glucose [Mass/Vol] 357 mg/dL 74-106 [facility] Comment on above: Glucose result great er than or equal to 200 mg/dLsuggests DIABETES MELLITUS per A.D.A. criteria. Hemoglobin (Bld) [Mass/Vol] 15.7 g/dL 13.0-16.5 [facility] Monocytes/100 WBC (Bld) 5.0 % 0-10 [facility] Neutrophils (Bld) [#/Vol] 5.3 10*3/uL 2.0-7.7 [facility] Neutrophils/100 WBC (Bld) 70.9 % 47-70 [facility] Potassium [Moles/Vol] 3.8 mmol/L 3.5-5.1 [facility] Protein [Mass/Vol] 7.6 g/dL 6.4-8.2 [facility] Sodium [Moles/Vol] 137 mmol/L 136-145 [facility] WBC (Bld) [#/Vol] 7.4 10*3/uL 4.4-11.0 [facility] Bilirubin Test strip Ql (U)O rdered By: Barry Mathew on 11-22-2023 Bilirubin Ql (U) Negative Negative [facility] Determination of erythrocyte mean corpuscular volume (MCV)Ordered By: Barry Mathew on 11-22-2023 MCV (RBC) [Entitic vol] 81.6 fL 80-94 [facility] Erythrocyte distribution wid th ratioOrdered By: Barry Mathew on 11-22-2023 Erythrocyte distribution width (RBC) [Ratio] 13.4 % 11.6-14.6 [facility] Erythrocyte distribution wid th standard deviationOrdered By: Barry Mathew on 11-22-2023 Erythrocyte distribution width (RBC) [Entitic vol] 39.2 fL 35.1-43.9 [facility] Hematocrit Auto (Bld) [Volum e fraction]Ordered By: Barry Mathew on 11-22-2023 Hematocrit (Bld) [Volume fraction] 45.6 % 40-54 [facility] Immature granulocytes/100 WB C Auto (Bld)Ordered By: Barry Mathew on 11-22-2023 Immature granulocytes/100 WBC (Bld) 0.300 % 0.0-0.9 [facility] Comment on above: IG% - Immature Granu locytes (promyelocytes, myelocytes and metamyelocytes) > 1% indicates that a LEFT SHIFT is Present. Ketones Test strip Ql (U)Ord ered By: Barry Mathew on 11-22-2023 Ketones Ql (U) Negative Negative [facility] Laboratory - Chemistry and C hemistry - challengeOrdered By: Barry Mathew on 11-22-2023 Albumin/Globulin [Mass ratio] 0.9 {ratio} 0.9-2.4 [facility] ALP [Catalytic activity/Vol] 100 U/L 45-117 [facility] ALT [Catalytic activity/Vol] 16 U/L 16-61 [facility] CO2 [Moles/Vol] 33.0 mmol/L 21.0-32.0 [facility] Globulin (S) [Mass/Vol] 3.9 g/dL 2.2-4.2 [facility] Urea nitrogen/Creatinine [Mass ratio] 13.9 mg/mg 10-20 [facility] Laboratory - Hematology and Cell countsOrdered By: Barry Mathew on 11-22-2023 MCH (RBC) [Entitic mass] 28.1 pg 27.0-32.0 [facility] MCHC (RBC) [Mass/Vol] 34.4 g/dL 32-36 [facility] Nucleated RBC/100 WBC (Bld) [Ratio] 0 % 0-5 [facility] Platelets (Bld) [#/Vol] 220 10*3/uL 150-450 [facility] Mucus LM Ql (Urine sed)Order ed By: Barry Mathew on 11-22-2023 Mucus Ql (Urine sed) RARE /hpf [facility] Nitrite Test strip Ql (U)Ord ered By: Barry Mathew on 11-22-2023 Nitrite Ql (U) Negative Negative [facility] No Panel InformationOrdered By: Barry Mathew on 11-22-2023 Urine RBC 0 SEEN /hpf 0-5 [facility] Estimated Creatinine Clearance Calc 101.37 ml/min [facility] Estimated GFR (MDRD) Amer 105 mL/min >60 [facility] Comment on above: GFR Calc Estimated GFR (MDRD) Non-Af Amer 86 mL/min >60 [facility] Comment on above: Non- GFR Calc Troponin I High Sensitivity 5 pg/mL 3.0-78.0 [facility] Comment on above: Please Note: New Kira t Units and Gender Specific Reference Ranges. For more information see Policy Stat Procedure [place] High Sensitivity Troponin (TNIH) and attachments. Platelet mean volume Kamlesh-Ec ker (Bld) [Entitic vol]Ordered By: Barry Mathew on 11-22-2023 Platelet mean volume (Bld) [Entitic vol] 9.3 fL 6.2-12.0 [facility] Protein Test strip Ql (U)Ord ered By: Barry Mathew on 11-22-2023 Protein Ql (U) 15 mg/dl Negative [facility] RBC Auto (Bld) [#/Vol]Ordere d By: Barry Mathew on 11-22-2023 RBC (Bld) [#/Vol] 5.59 10*6/uL 4.6-6.2 [facility] Serum or plasma calcium yayo urement (mass/volume)Ordered By: Barry Mathew on 11-22-2023 Calcium [Mass/Vol] 10.2 mg/dL 8.5-10.1 [facility] Serum or plasma creatinine m easurement (mass/volume)Ordered By: Barry Mathew on 11-22-2023 Creatinine [Mass/Vol] 0.94 mg/dL 0.70-1.30 [facility] Comment on above: The validity of the calculated GFR & GFRAA in patients over 70 years has not been determined. Clinical correlation is essential. Serum or plasma urea nitroge n measurement (mass/volume)Ordered By: Barry Mathew on 11-22-2023 Urea nitrogen [Mass/Vol] 13 mg/dL 7-18 [facility] Squamous epithelial cells de tection in urine sediment by light microscopyOrdered By: Barry Mathew on 11-22-2023 Epithelial cells.squamous LM Ql (Urine sed) 0-5 SEEN /hpf 0-5 [facility] Thin prep Papanicolaou smear with manual screeningOrdered By: Barry Mathew on 11-22-2023 Thin prep Papanicolaou smear with manual screening 3.7 g/dL 3.2-5.0 [facility] Thin prep Papanicolaou smear with manual screening 9 U/L 15-37 [facility] Thin prep Papanicolaou smear with manual screening 3 5-15 [facility] Urine blood detectionOrdered By: Barry Mathew on 11-22-2023 RBC Ql (U) Negative Negative [facility] Urine clarityOrdered By: Silva Mathew on 11-22-2023 Clarity (U) Sl. Cloudy Clear [facility] Urine color determinationOrd ered By: Barry Mathew on 11-22-2023 Color (U) Yellow Yellow [facility] Urine glucose detectionOrder ed By: Barry Mathew on 11-22-2023 Glucose Ql (U) 1000 mg/dl Normal [facility] Urine leukocyte esterase det ection by dipstickOrdered By: Barry Mathew on 11-22-2023 Leukocyte esterase Test strip Ql (U) 25 /ul Negative [facility] Urine pHOrdered By: Barry otoole on 11-22-2023 pH (U) 5.0 [pH] 5.0 - 8.0 [facility] Urine sediment bacteria coun t by microscopy (number/high power field)Ordered By: Barry Mathew on 11-22-2023 Bacteria LM.HPF (Urine sed) [#/Area] RARE /hpf None Seen [facility] Urine sediment yeast count b y microscopy (number/high powered field)Ordered By: Barry Mathew on 11-22-2023 Yeast LM.HPF (Urine sed) [#/Area] RARE /hpf None Seen [facility] Urine specific gravity measu rementOrdered By: Barry Mathew on 11-22-2023 Specific gravity (U) [Rel density] 1.020 1.002-1.030 [facility] Urine urobilinogen measureme ntOrdered By: Barry Mathew on 11-22-2023 Urobilinogen Ql (U) 1 mg/dl Normal [facility] Absolute lymphocyte countOrd ered By: Live Ashley on 10-01-2023 Lymphocytes Auto (Unsp spec) [#/Vol] 1.41 10*3/uL 0.83-4.51 [facility] Basophil percentageOrdered B y: Live Ashley on 10-01-2023 Basophils/100 WBC (Bld) 0.3 % 0-1 [facility] Chloride [Moles/Vol] 105 mmol/L 98-107 [facility] Eosinophils/100 WBC (Bld) 2.2 % 0-5 [facility] Glucose [Mass/Vol] 429 mg/dL 74-106 [facility] Comment on above: Glucose result great er than or equal to 200 mg/dLsuggests DIABETES MELLITUS per A.D.A. criteria. Neutrophils (Bld) [#/Vol] 6.4 10*3/uL 2.0-7.7 [facility] Neutrophils/100 WBC (Bld) 74.6 % 47-70 [facility] Potassium [Moles/Vol] 4.0 mmol/L 3.5-5.1 [facility] Sodium [Moles/Vol] 137 mmol/L 136-145 [facility] WBC (Bld) [#/Vol] 8.6 10*3/uL 4.4-11.0 [facility] Blood erythrocytes count (nu mber/volume)Ordered By: Live Ashley on 10-01-2023 RBC (Bld) [#/Vol] 4.67 10*6/uL 4.6-6.2 [facility] Blood hemoglobin measurement (mass/volume)Ordered By: Live Ashley on 10-01-2023 Hemoglobin (Bld) [Mass/Vol] 13.4 g/dL 13.0-16.5 [facility] Blood lymphocytes/100 leukoc ytesOrdered By: Live Ashley on 10-01-2023 Lymphocytes/100 WBC (Bld) 16.4 % 19-41 [facility] Blood monocytes/100 leukocyt esOrdered By: Live Ashley on 10-01-2023 Monocytes/100 WBC (Bld) 6.3 % 0-10 [facility] Blood platelet mean volumeOr dered By: Live Ashley on 10-01-2023 Platelet mean volume (Bld) [Entitic vol] 9.4 fL 6.2-12.0 [facility] Determination of erythrocyte mean corpuscular volume (MCV)Ordered By: Live Ashley on 10-01-2023 MCV (RBC) [Entitic vol] 84.4 fL 80-94 [facility] Hematocrit Auto (Bld) [Volum e fraction]Ordered By: Live Ashley on 10-01-2023 Hematocrit (Bld) [Volume fraction] 39.4 % 40-54 [facility] Laboratory - Chemistry and C hemistry - challengeOrdered By: Live Ashley on 10-01-2023 CO2 [Moles/Vol] 28.0 mmol/L 21.0-32.0 [facility] Urea nitrogen/Creatinine [Mass ratio] 14.9 mg/mg 10-20 [facility] Laboratory - Hematology and Cell countsOrdered By: Live Ashley on 10-01-2023 Erythrocyte distribution width (RBC) [Entitic vol] 41.7 fL 35.1-43.9 [facility] Erythrocyte distribution width (RBC) [Ratio] 13.7 % 11.6-14.6 [facility] Immature granulocytes/100 WBC (Bld) 0.200 % 0.0-0.9 [facility] Comment on above: IG% - Immature Granu locytes (promyelocytes, myelocytes and metamyelocytes) > 1% indicates that a LEFT SHIFT is Present. MCH (RBC) [Entitic mass] 28.7 pg 27.0-32.0 [facility] Nucleated RBC/100 WBC (Bld) [Ratio] 0 % 0-5 [facility] MCHC Auto (RBC) [Mass/Vol]Or dered By: Live Ashley on 10-01-2023 MCHC (RBC) [Mass/Vol] 34.0 g/dL 32-36 [facility] No Panel InformationOrdered By: Live Ashley on 10-01-2023 Estimated Creatinine Clearance Calc 83.59 ml/min [facility] Estimated GFR (MDRD) Amer 83 mL/min >60 [facility] Comment on above: GFR Calc Estimated GFR (MDRD) Non-Af Amer 69 mL/min >60 [facility] Comment on above: Non- GFR Calc Platelets bldOrdered By: Pankaj Ashley on 10-01-2023 Platelets (Bld) [#/Vol] 211 10*3/uL 150-450 [facility] Serum or plasma calcium yayo urement (mass/volume)Ordered By: Live Ashley on 10-01-2023 Calcium [Mass/Vol] 8.8 mg/dL 8.5-10.1 [facility] Serum or plasma creatinine m easurement (mass/volume)Ordered By: Live Ashley on 10-01-2023 Creatinine [Mass/Vol] 1.14 mg/dL 0.70-1.30 [facility] Comment on above: The validity of the calculated GFR & GFRAA in patients over 70 years has not been determined. Clinical correlation is essential. Serum or plasma urea nitroge n measurement (mass/volume)Ordered By: Live Ashley on 10-01-2023 Urea nitrogen [Mass/Vol] 17 mg/dL 7-18 [facility] Stool gastrointestinal hemog lobin detection by immunologic methodOrdered By: Live Ashley on 10-01-2023 Lower GI hemoglobin IA Ql (Stl) [facility] Lower GI hemoglobin IA Ql (Stl) [facility] Thin prep Papanicolaou smear with manual screeningOrdered By: Live Ashley on 10-01-2023 Thin prep Papanicolaou smear with manual screening 4 5-15 [facility] Absolute lymphocyte countOrd ered By: Barry Mathew on 09-29-2023 Lymphocytes Auto (Unsp spec) [#/Vol] 1.47 10*3/uL 0.83-4.51 [facility] Basophil percentageOrdered B y: Barry Mathew on 09-29-2023 Basophils/100 WBC (Bld) 0.6 % 0-1 [facility] Bilirubin [Mass/Vol] 0.40 mg/dL 0.20-1.00 [facility] Comment on above: For patients on eltr ombopag therapy, use of Dimension [place] TBIL is not recommended. Chloride [Moles/Vol] 105 mmol/L 98-107 [facility] Eosinophils/100 WBC (Bld) 1.7 % 0-5 [facility] Glucose [Mass/Vol] 213 mg/dL 74-106 [facility] Comment on above: Glucose result great er than or equal to 200 mg/dLsuggests DIABETES MELLITUS per A.D.A. criteria. Neutrophils (Bld) [#/Vol] 8.5 10*3/uL 2.0-7.7 [facility] Neutrophils/100 WBC (Bld) 78.5 % 47-70 [facility] Potassium [Moles/Vol] 3.9 mmol/L 3.5-5.1 [facility] Protein [Mass/Vol] 7.2 g/dL 6.4-8.2 [facility] Sodium [Moles/Vol] 137 mmol/L 136-145 [facility] WBC (Bld) [#/Vol] 10.9 10*3/uL 4.4-11.0 [facility] Blood erythrocytes count (nu mber/volume)Ordered By: Barry Mathew on 09-29-2023 RBC (Bld) [#/Vol] 4.98 10*6/uL 4.6-6.2 [facility] Blood hemoglobin measurement (mass/volume)Ordered By: Barry Mathew on 09-29-2023 Hemoglobin (Bld) [Mass/Vol] 14.0 g/dL 13.0-16.5 [facility] Blood lymphocytes/100 leukoc ytesOrdered By: Barry Mathew on 09-29-2023 Lymphocytes/100 WBC (Bld) 13.5 % 19-41 [facility] Blood monocytes/100 leukocyt esOrdered By: Barry Mathew on 09-29-2023 Monocytes/100 WBC (Bld) 5.2 % 0-10 [facility] Blood platelet mean volumeOr dered By: Barry Mathew on 09-29-2023 Platelet mean volume (Bld) [Entitic vol] 9.2 fL 6.2-12.0 [facility] Determination of erythrocyte mean corpuscular volume (MCV)Ordered By: Barry Mathew on 09-29-2023 MCV (RBC) [Entitic vol] 82.5 fL 80-94 [facility] Hematocrit Auto (Bld) [Volum e fraction]Ordered By: Barry Mathew on 09-29-2023 Hematocrit (Bld) [Volume fraction] 41.1 % 40-54 [facility] Laboratory - Chemistry and C hemistry - challengeOrdered By: Barry Mathew on 09-29-2023 ALP [Catalytic activity/Vol] 100 U/L 45-117 [facility] ALT [Catalytic activity/Vol] 14 U/L 16-61 [facility] CO2 [Moles/Vol] 28.0 mmol/L 21.0-32.0 [facility] Globulin (S) [Mass/Vol] 3.7 g/dL 2.2-4.2 [facility] Lipase [Catalytic activity/Vol] 13 U/L 13-75 [facility] Comment on above: Please note:LIPASE r evised reference range effective 23. New Lipase methodology. Expected to produce lower values than the previous assay method. NEW Reference Range: 13 - 75 U/L Urea nitrogen/Creatinine [Mass ratio] 16.5 mg/mg 10-20 [facility] Laboratory - Hematology and Cell countsOrdered By: Barry Mathew on 09-29-2023 Erythrocyte distribution width (RBC) [Entitic vol] 39.8 fL 35.1-43.9 [facility] Erythrocyte distribution width (RBC) [Ratio] 13.4 % 11.6-14.6 [facility] Immature granulocytes/100 WBC (Bld) 0.500 % 0.0-0.9 [facility] Comment on above: IG% - Immature Granu locytes (promyelocytes, myelocytes and metamyelocytes) > 1% indicates that a LEFT SHIFT is Present. MCH (RBC) [Entitic mass] 28.1 pg 27.0-32.0 [facility] Nucleated RBC/100 WBC (Bld) [Ratio] 0 % 0-5 [facility] MCHC Auto (RBC) [Mass/Vol]Or dered By: Barry Mathew on 09-29-2023 MCHC (RBC) [Mass/Vol] 34.1 g/dL 32-36 [facility] No Panel InformationOrdered By: Barry Mathew on 09-29-2023 Estimated Creatinine Clearance Calc 92.51 ml/min [facility] Estimated GFR (MDRD) Amer 94 mL/min >60 [facility] Comment on above: GFR Calc Estimated GFR (MDRD) Non-Af Amer 77 mL/min >60 [facility] Comment on above: Non- GFR Calc Platelets bldOrdered By: Silva Mathew on 09-29-2023 Platelets (Bld) [#/Vol] 226 10*3/uL 150-450 [facility] Serum or plasma albumin yayo urement (mass/volume)Ordered By: Barry Mathew on 09-29-2023 Albumin [Mass/Vol] 3.5 g/dL 3.2-5.0 [facility] Serum or plasma albumin/glob ulin mass ratioOrdered By: Barry Mathew on 09-29-2023 Albumin/Globulin [Mass ratio] 0.9 {ratio} 0.9-2.4 [facility] Serum or plasma calcium yayo urement (mass/volume)Ordered By: Barry Mathew on 09-29-2023 Calcium [Mass/Vol] 8.7 mg/dL 8.5-10.1 [facility] Serum or plasma creatinine m easurement (mass/volume)Ordered By: Barry Mathew on 09-29-2023 Creatinine [Mass/Vol] 1.03 mg/dL 0.70-1.30 [facility] Comment on above: The validity of the calculated GFR & GFRAA in patients over 70 years has not been determined. Clinical correlation is essential. Serum or plasma urea nitroge n measurement (mass/volume)Ordered By: Barry Mathew on 09-29-2023 Urea nitrogen [Mass/Vol] 17 mg/dL 7-18 [facility] Thin prep Papanicolaou smear with manual screeningOrdered By: Barry Mathew on 09-29-2023 Thin prep Papanicolaou smear with manual screening 9 U/L 15-37 [facility] Thin prep Papanicolaou smear with manual screening 4 5-15 [facility] Absolute lymphocyte countOrd ered By: Ar Calle on 07-29-2023 Lymphocytes Auto (Unsp spec) [#/Vol] 1.27 10*3/uL 0.83-4.51 [facility] Basophil percentageOrdered B y: Ar Calle on 07-29-2023 Basophils/100 WBC (Bld) 0.7 % 0-1 [facility] Chloride [Moles/Vol] 100 mmol/L 98-107 [facility] Eosinophils/100 WBC (Bld) 2.4 % 0-5 [facility] Glucose [Mass/Vol] 408 mg/dL 74-106 [facility] Comment on above: Glucose result great er than or equal to 200 mg/dLsuggests DIABETES MELLITUS per A.D.A. criteria. Neutrophils (Bld) [#/Vol] 6.2 10*3/uL 2.0-7.7 [facility] Neutrophils/100 WBC (Bld) 74.4 % 47-70 [facility] Potassium [Moles/Vol] 4.0 mmol/L 3.5-5.1 [facility] Sodium [Moles/Vol] 135 mmol/L 136-145 [facility] WBC (Bld) [#/Vol] 8.3 10*3/uL 4.4-11.0 [facility] Blood erythrocytes count (nu mber/volume)Ordered By: Ar Calle on 07-29-2023 RBC (Bld) [#/Vol] 4.62 10*6/uL 4.6-6.2 [facility] Blood hemoglobin measurement (mass/volume)Ordered By: Ar Calle on 07-29-2023 Hemoglobin (Bld) [Mass/Vol] 12.9 g/dL 13.0-16.5 [facility] Blood lymphocytes/100 leukoc ytesOrdered By: Arsusan Calle on 07-29-2023 Lymphocytes/100 WBC (Bld) 15.2 % 19-41 [facility] Blood monocytes/100 leukocyt esOrdered By: Arsusan Calle on 07-29-2023 Monocytes/100 WBC (Bld) 6.7 % 0-10 [facility] Blood platelet mean volumeOr dered By: Ar Calle on 07-29-2023 Platelet mean volume (Bld) [Entitic vol] 9.5 fL 6.2-12.0 [facility] [facility] Determination of erythrocyte mean corpuscular volume (MCV)Ordered By: Ar Calle on 07-29-2023 MCV (RBC) [Entitic vol] 81.8 fL 80-94 [facility] Glucose Glucometer (dC) [M ass/Vol]Ordered By: Ar Calle on 07-29-2023 Glucose [Mass/Vol] 400 mg/dL 74-106 [facility] Comment on above: MANAGEMENT OF PATIEN T CARE PER NURSING PROTOCOL Hematocrit Auto (Bld) [Volum e fraction]Ordered By: Ar Calle on 07-29-2023 Hematocrit (Bld) [Volume fraction] 37.8 % 40-54 [facility] - Chemistry and C hemistry - challengeOrdered By: Ar Calle on 07-29-2023 CO2 [Moles/Vol] 30.0 mmol/L 21.0-32.0 [facility] Urea nitrogen/Creatinine [Mass ratio] 11.1 mg/mg 10-20 [facility] - Hematology and Cell countsOrdered By: Ar Calle on 07-29-2023 Erythrocyte distribution width (RBC) [Entitic vol] 39.1 fL 35.1-43.9 [facility] Erythrocyte distribution width (RBC) [Ratio] 13.3 % 11.6-14.6 [facility] Immature granulocytes/100 WBC (Bld) 0.600 % 0.0-0.9 [facility] Comment on above: IG% - Immature Granu locytes (promyelocytes, myelocytes and metamyelocytes) > 1% indicates that a LEFT SHIFT is Present. MCH (RBC) [Entitic mass] 27.9 pg 27.0-32.0 [facility] Nucleated RBC/100 WBC (Bld) [Ratio] 0 % 0-5 [facility] MCHC Auto (RBC) [Mass/Vol]Or dered By: Ar Calle on 07-29-2023 MCHC (RBC) [Mass/Vol] 34.1 g/dL 32-36 [facility] No Panel InformationOrdered By: Ar Calle on 07-29-2023 Estimated Creatinine Clearance Calc 75.63 ml/min [facility] Estimated GFR (MDRD) Amer 74 mL/min >60 [facility] Comment on above: GFR Calc Estimated GFR (MDRD) Non-Af Amer 61 mL/min >60 [facility] Comment on above: Non- GFR Calc Troponin I High Sensitivity 4 pg/mL 3.0-78.0 [facility] Comment on above: Please Note: New Kira t Units and Gender Specific Reference Ranges. For more information see Policy Stat Procedure [place] High Sensitivity Troponin (TNIH) and attachments. Platelets bldOrdered By: Ar Calle on 07-29-2023 Platelets (Bld) [#/Vol] 208 10*3/uL 150-450 [facility] Serum or plasma calcium yayo urement (mass/volume)Ordered By: Ar Calle on 07-29-2023 Calcium [Mass/Vol] 8.5 mg/dL 8.5-10.1 [facility] Serum or plasma creatinine m easurement (mass/volume)Ordered By: Ar Calle on 07-29-2023 Creatinine [Mass/Vol] 1.26 mg/dL 0.70-1.30 [facility] Comment on above: The validity of the calculated GFR & GFRAA in patients over 70 years has not been determined. Clinical correlation is essential. Serum or plasma urea nitroge n measurement (mass/volume)Ordered By: Arsusan Calle on 07-29-2023 Urea nitrogen [Mass/Vol] 14 mg/dL 7-18 [facility] Thin prep Papanicolaou smear with manual screeningOrdered By: Ar Calle on 07-29-2023 Thin prep Papanicolaou smear with manual screening 5 5-15 [facility] Absolute lymphocyte countOrd ered By: Dr. Castillo on 03-07-2023 Lymphocytes Auto (Unsp spec) [#/Vol] 1.61 10*3/uL 0.83-4.51 [facility] Basophil percentageOrdered B y: Dr. Castillo on 03-07-2023 Basophils/100 WBC (Bld) 0.5 % 0-1 [facility] Bilirubin [Mass/Vol] 0.60 mg/dL 0.20-1.00 [facility] Comment on above: For patients on eltr ombopag therapy, use of Dimension [place] TBIL is not recommended. Chloride [Moles/Vol] 104 mmol/L 98-107 [facility] Eosinophils/100 WBC (Bld) 3.1 % 0-5 [facility] Glucose [Mass/Vol] 347 mg/dL 74-106 [facility] Comment on above: Glucose result great er than or equal to 200 mg/dLsuggests DIABETES MELLITUS per A.D.A. criteria. Neutrophils (Bld) [#/Vol] 5.0 10*3/uL 2.0-7.7 [facility] Neutrophils/100 WBC (Bld) 67.8 % 47-70 [facility] Potassium [Moles/Vol] 3.8 mmol/L 3.5-5.1 [facility] Protein [Mass/Vol] 7.3 g/dL 6.4-8.2 [facility] Sodium [Moles/Vol] 139 mmol/L 136-145 [facility] WBC (Bld) [#/Vol] 7.4 10*3/uL 4.4-11.0 [facility] Blood erythrocytes count (nu mber/volume)Ordered By: Dr. Castillo on 03-07-2023 RBC (Bld) [#/Vol] 5.02 10*6/uL 4.6-6.2 [facility] Blood hemoglobin measurement (mass/volume)Ordered By: Dr. Castillo on 03-07-2023 Hemoglobin (Bld) [Mass/Vol] 14.3 g/dL 13.0-16.5 [facility] Blood lymphocytes/100 leukoc ytesOrdered By: Dr. Castillo on 03-07-2023 Lymphocytes/100 WBC (Bld) 21.8 % 19-41 [facility] Blood monocytes/100 leukocyt esOrdered By: Dr. Castillo on 03-07-2023 Monocytes/100 WBC (Bld) 6.4 % 0-10 [facility] Blood platelet mean volumeOr dered By: Dr. Castillo on 03-07-2023 Platelet mean volume (Bld) [Entitic vol] 9.5 fL 6.2-12.0 [facility] Determination of erythrocyte mean corpuscular volume (MCV)Ordered By: Dr. Castillo on 03-07-2023 MCV (RBC) [Entitic vol] 83.3 fL 80-94 [facility] Direct bilirubinOrdered By: Dr. Castillo on 03-07-2023 Bilirubin.direct [Mass/Vol] 0.12 mg/dL 0.00-0.30 [facility] Glucose Glucometer (dC) [M ass/Vol]Ordered By: Dr. Castillo on 03-07-2023 Glucose [Mass/Vol] 134 mg/dL 74-106 [facility] Comment on above: MANAGEMENT OF PATIEN T CARE PER NURSING PROTOCOL Hematocrit Auto (Bld) [Volum e fraction]Ordered By: Dr. Castillo on 03-07-2023 Hematocrit (Bld) [Volume fraction] 41.8 % 40-54 [facility] - Chemistry and C hemistry - challengeOrdered By: Dr. Castillo on 03-07-2023 ALP [Catalytic activity/Vol] 67 U/L 45-117 [facility] ALT [Catalytic activity/Vol] 16 U/L 16-61 [facility] CO2 [Moles/Vol] 27.0 mmol/L 21.0-32.0 [facility] Globulin (S) [Mass/Vol] 3.8 g/dL 2.2-4.2 [facility] Lipase [Catalytic activity/Vol] 12 U/L 13-75 [facility] Comment on above: Please note:LIPASE r evised reference range effective 23. New Lipase methodology. Expected to produce lower values than the previous assay method. NEW Reference Range: 13 - 75 U/L Urea nitrogen/Creatinine [Mass ratio] 12.5 mg/mg 10-20 [facility] - Hematology and Cell countsOrdered By: Dr. Castillo on 03-07-2023 Erythrocyte distribution width (RBC) [Entitic vol] 40.3 fL 35.1-43.9 [facility] Erythrocyte distribution width (RBC) [Ratio] 13.3 % 11.6-14.6 [facility] Immature granulocytes/100 WBC (Bld) 0.400 % 0.0-0.9 [facility] Comment on above: IG% - Immature Granu locytes (promyelocytes, myelocytes and metamyelocytes) > 1% indicates that a LEFT SHIFT is Present. MCH (RBC) [Entitic mass] 28.5 pg 27.0-32.0 [facility] Nucleated RBC/100 WBC (Bld) [Ratio] 0 % 0-5 [facility] MCHC Auto (RBC) [Mass/Vol]Or dered By: Dr. Castillo on 03-07-2023 MCHC (RBC) [Mass/Vol] 34.2 g/dL 32-36 [facility] No Panel InformationOrdered By: Dr. Castillo on 03-07-2023 Estimated Creatinine Clearance Calc 85.63 ml/min [facility] Estimated GFR (MDRD) Amer 93 mL/min >60 [facility] Comment on above: GFR Calc Estimated GFR (MDRD) Non-Af Amer 77 mL/min >60 [facility] Comment on above: Non- GFR Calc Ethyl Alcohol Level < 3.0 mg/dL [facility] Comment on above: The serum:whole bloo d ethanol ratio is approximately 1.14and varies slightly with hematocrit. Medical Alcohol reference interval and critical value innon-tolerant individuals; 50 - 100 Impairment 100 Intoxication 100 - 250 Severe Poisoning 250 - 400 Deep/possible fatal coma Platelets bldOrdered By: Dr. Castillo on 03-07-2023 Platelets (Bld) [#/Vol] 214 10*3/uL 150-450 [facility] Serum or plasma albumin yayo urement (mass/volume)Ordered By: Dr. Castillo on 03-07-2023 Albumin [Mass/Vol] 3.5 g/dL 3.2-5.0 [facility] Serum or plasma calcium yayo urement (mass/volume)Ordered By: Dr. Castillo on 03-07-2023 Calcium [Mass/Vol] 8.7 mg/dL 8.5-10.1 [facility] Serum or plasma creatinine m easurement (mass/volume)Ordered By: Dr. Castillo on 03-07-2023 Creatinine [Mass/Vol] 1.04 mg/dL 0.70-1.30 [facility] Comment on above: The validity of the calculated GFR & GFRAA in patients over 70 years has not been determined. Clinical correlation is essential. Serum or plasma urea nitroge n measurement (mass/volume)Ordered By: Dr. Castillo on 03-07-2023 Urea nitrogen [Mass/Vol] 13 mg/dL 7-18 [facility] Thin prep Papanicolaou smear with manual screeningOrdered By: Dr. Castillo on 03-07-2023 Thin prep Papanicolaou smear with manual screening 13 U/L 15-37 [facility] Thin prep Papanicolaou smear with manual screening 8 5-15 [facility] Absolute lymphocyte countOrd ered By: Dr. Chavez on 01-18-2023 Lymphocytes Auto (Unsp spec) [#/Vol] 1.51 10*3/uL 0.83-4.51 [facility] Basophil percentageOrdered B y: Dr. Chavez on 01-18-2023 Basophils/100 WBC (Bld) 0.5 % 0-1 [facility] Bilirubin [Mass/Vol] 0.90 mg/dL 0.20-1.00 [facility] Comment on above: For patients on eltr ombopag therapy, use of Dimension [place] TBIL is not recommended. Chloride [Moles/Vol] 105 mmol/L 98-107 [facility] Eosinophils/100 WBC (Bld) 2.6 % 0-5 [facility] Glucose [Mass/Vol] 182 mg/dL 74-106 [facility] Comment on above: Fasting Glucose resu lt greater than or equal to 126 mg/dL suggests DIABETES MELLITUS per A.D.A. criteria. Neutrophils (Bld) [#/Vol] 6.0 10*3/uL 2.0-7.7 [facility] Neutrophils/100 WBC (Bld) 71.9 % 47-70 [facility] Potassium [Moles/Vol] 3.4 mmol/L 3.5-5.1 [facility] Protein [Mass/Vol] 6.9 g/dL 6.4-8.2 [facility] Sodium [Moles/Vol] 139 mmol/L 136-145 [facility] WBC (Bld) [#/Vol] 8.4 10*3/uL 4.4-11.0 [facility] Blood erythrocytes count (nu mber/volume)Ordered By: Dr. Chavez on 01-18-2023 RBC (Bld) [#/Vol] 5.01 10*6/uL 4.6-6.2 [facility] Blood hemoglobin measurement (mass/volume)Ordered By: Dr. Chavez on 01-18-2023 Hemoglobin (Bld) [Mass/Vol] 14.4 g/dL 13.0-16.5 [facility] Blood lymphocytes/100 leukoc ytesOrdered By: Dr. Chavez on 01-18-2023 Lymphocytes/100 WBC (Bld) 18.0 % 19-41 [facility] Blood monocytes/100 leukocyt esOrdered By: Dr. Chavez on 01-18-2023 Monocytes/100 WBC (Bld) 6.8 % 0-10 [facility] Blood platelet mean volumeOr dered By: Dr. Chavez on 01-18-2023 Platelet mean volume (Bld) [Entitic vol] 8.9 fL 6.2-12.0 [facility] Clostridium difficile detect ion by polymerase chain reactionOrdered By: Bernard Chavez on 01-18-2023 C. difficile DNA IOANA+probe Ql (Unsp spec) [facility] Clostridium difficile detect ion by polymerase chain reactionOrdered By: Dr. Chavez on 01-18-2023 C. difficile DNA IOANA+probe Ql (Unsp spec) [facility] Determination of erythrocyte mean corpuscular volume (MCV)Ordered By: Dr. Chavez on 01-18-2023 MCV (RBC) [Entitic vol] 81.6 fL 80-94 [facility] Hematocrit Auto (Bld) [Volum e fraction]Ordered By: Dr. Chavez on 01-18-2023 Hematocrit (Bld) [Volume fraction] 40.9 % 40-54 [facility] - Chemistry and C hemistry - challengeOrdered By: Dr. Chavez on 01-18-2023 ALP [Catalytic activity/Vol] 64 U/L 45-117 [facility] ALT [Catalytic activity/Vol] 14 U/L 16-61 [facility] CO2 [Moles/Vol] 28.0 mmol/L 21.0-32.0 [facility] Globulin (S) [Mass/Vol] 3.2 g/dL 2.2-4.2 [facility] Urea nitrogen/Creatinine [Mass ratio] 11.7 mg/mg 10-20 [facility] - Hematology and Cell countsOrdered By: Dr. Chavez on 01-18-2023 Erythrocyte distribution width (RBC) [Entitic vol] 39.6 fL 35.1-43.9 [facility] Erythrocyte distribution width (RBC) [Ratio] 13.4 % 11.6-14.6 [facility] Immature granulocytes/100 WBC (Bld) 0.200 % 0.0-0.9 [facility] Comment on above: IG% - Immature Granu locytes (promyelocytes, myelocytes and metamyelocytes) > 1% indicates that a LEFT SHIFT is Present. MCH (RBC) [Entitic mass] 28.7 pg 27.0-32.0 [facility] Nucleated RBC/100 WBC (Bld) [Ratio] 0 % 0-5 [facility] MCHC Auto (RBC) [Mass/Vol]Or dered By: Dr. Chavez on 01-18-2023 MCHC (RBC) [Mass/Vol] 35.2 g/dL 32-36 [facility] No Panel InformationOrdered By: Dr. Chavez on 01-18-2023 Estimated Creatinine Clearance Calc 102.69 ml/min [facility] Estimated GFR (MDRD) Amer 105 mL/min >60 [facility] Comment on above: GFR Calc Estimated GFR (MDRD) Non-Af Amer 86 mL/min >60 [facility] Comment on above: Non- GFR Calc Platelets bldOrdered By: Dr. Chavez on 01-18-2023 Platelets (Bld) [#/Vol] 199 10*3/uL 150-450 [facility] Serum or plasma albumin yayo urement (mass/volume)Ordered By: Dr. Chavez on 01-18-2023 Albumin [Mass/Vol] 3.7 g/dL 3.2-5.0 [facility] Serum or plasma albumin/glob ulin mass ratioOrdered By: Dr. Chavez on 01-18-2023 Albumin/Globulin [Mass ratio] 1.2 {ratio} 0.9-2.4 [facility] Serum or plasma calcium yayo urement (mass/volume)Ordered By: Dr. Chavez on 01-18-2023 Calcium [Mass/Vol] 8.3 mg/dL 8.5-10.1 [facility] Serum or plasma creatinine m easurement (mass/volume)Ordered By: Dr. Chavez on 01-18-2023 Creatinine [Mass/Vol] 0.94 mg/dL 0.70-1.30 [facility] Comment on above: The validity of the calculated GFR & GFRAA in patients over 70 years has not been determined. Clinical correlation is essential. Serum or plasma urea nitroge n measurement (mass/volume)Ordered By: Dr. Chavez on 01-18-2023 Urea nitrogen [Mass/Vol] 11 mg/dL 7-18 [facility] Stool lactoferrin detection by immunoassayOrdered By: Bernard Chavez on 01-18-2023 Lactoferrin IA Ql (Stl) [facility] Stool lactoferrin detection by immunoassayOrdered By: Dr. Chavez on 01-18-2023 Lactoferrin IA Ql (Stl) [facility] Thin prep Papanicolaou smear with manual screeningOrdered By: Dr. Chavez on 01-18-2023 Thin prep Papanicolaou smear with manual screening 10 U/L 15-37 [facility] Thin prep Papanicolaou smear with manual screening 6 5-15 [facility] - Chemistry and C hemistry - challengeOrdered By: Dr. Chavez on 12-15-2022 Free T4 [Mass/Vol] 0.76 ng/dL 0.76-1.46 [facility] No Panel InformationOrdered By: Dr. Chavez on 12-15-2022 Thyroid Stimulating Hormone (TSH) 9.17 uIU/mL 0.358-3.74 [facility] Absolute lymphocyte countOrd ered By: Dr. Wu on 12-11-2022 Lymphocytes Auto (Unsp spec) [#/Vol] 1.53 10*3/uL 0.83-4.51 [facility] Basophil percentageOrdered B y: Dr. Wu on 12-11-2022 Basophil percentage 0 SEEN /hpf 0-5 [facility] Basophils/100 WBC (Bld) 0.6 % 0-1 [facility] Bilirubin [Mass/Vol] 0.60 mg/dL 0.20-1.00 [facility] Comment on above: For patients on eltr ombopag therapy, use of Dimension [place] TBIL is not recommended. Chloride [Moles/Vol] 104 mmol/L 98-107 [facility] Eosinophils/100 WBC (Bld) 3.4 % 0-5 [facility] Glucose [Mass/Vol] 337 mg/dL 74-106 [facility] Comment on above: Glucose result great er than or equal to 200 mg/dLsuggests DIABETES MELLITUS per A.D.A. criteria. Neutrophils (Bld) [#/Vol] 4.6 10*3/uL 2.0-7.7 [facility] Neutrophils/100 WBC (Bld) 67.1 % 47-70 [facility] Potassium [Moles/Vol] 3.4 mmol/L 3.5-5.1 [facility] Protein [Mass/Vol] 6.7 g/dL 6.4-8.2 [facility] Sodium [Moles/Vol] 139 mmol/L 136-145 [facility] WBC (Bld) [#/Vol] 6.8 10*3/uL 4.4-11.0 [facility] Bilirubin Test strip Ql (U)O rdered By: Dr. Wu on 12-11-2022 Bilirubin Ql (U) Negative Negative [facility] Blood erythrocytes count (nu mber/volume)Ordered By: Dr. Wu on 12-11-2022 RBC (Bld) [#/Vol] 5.09 10*6/uL 4.6-6.2 [facility] Blood hemoglobin measurement (mass/volume)Ordered By: Dr. Wu on 12-11-2022 Hemoglobin (Bld) [Mass/Vol] 14.4 g/dL 13.0-16.5 [facility] Blood lymphocytes/100 leukoc ytesOrdered By: Dr. Wu on 12-11-2022 Lymphocytes/100 WBC (Bld) 22.4 % 19-41 [facility] Blood monocytes/100 leukocyt esOrdered By: Dr. Wu on 12-11-2022 Monocytes/100 WBC (Bld) 6.1 % 0-10 [facility] Blood platelet mean volumeOr dered By: Dr. Wu on 12-11-2022 Platelet mean volume (Bld) [Entitic vol] 9.5 fL 6.2-12.0 [facility] Determination of erythrocyte mean corpuscular volume (MCV)Ordered By: Dr. Wu on 12-11-2022 MCV (RBC) [Entitic vol] 82.3 fL 80-94 [facility] Glucose Glucometer (BldC) [M ass/Vol]Ordered By: Dr. Wu on 12-11-2022 Glucose [Mass/Vol] 272 mg/dL 74-106 [facility] Comment on above: MANAGEMENT OF PATIEN T CARE PER NURSING PROTOCOL Hematocrit Auto (Bld) [Volum e fraction]Ordered By: Dr. Wu on 12-11-2022 Hematocrit (Bld) [Volume fraction] 41.9 % 40-54 [facility] Influenza virus A and B and SARS-CoV-2 (COVID-19) Ag panel - Upper respiratory specimOrdered By: Dr. Wu on 12-11-2022 SARS-CoV-2 (COVID-19) RNA IOANA+probe Ql (Resp) [facility] Ketones Test strip Ql (U)Ord ered By: Dr. Wu on 12-11-2022 Ketones Ql (U) 5 mg/dl Negative [facility] - Chemistry and C hemistry - challengeOrdered By: Dr. Wu on 12-11-2022 ALP [Catalytic activity/Vol] 72 U/L 45-117 [facility] ALT [Catalytic activity/Vol] 12 U/L 16-61 [facility] CO2 [Moles/Vol] 28.0 mmol/L 21.0-32.0 [facility] Globulin (S) [Mass/Vol] 3.2 g/dL 2.2-4.2 [facility] Urea nitrogen/Creatinine [Mass ratio] 8.6 mg/mg 10-20 [facility] - Drug toxicology Ordered By: Dr. Wu on 12-11-2022 Amphetamines Ql (U) Negative <1000 ng/mL [facility] Benzodiazepines Ql (U) Negative < 200 ng/mL [facility] Cannabinoids Screen Ql (U) Negative < 50 ng/mL [facility] Cocaine Ql (U) Negative < 300 ng/mL [facility] Opiates Ql (U) Negative < 300 ng/mL [facility] - Hematology and Cell countsOrdered By: Dr. Wu on 12-11-2022 Erythrocyte distribution width (RBC) [Entitic vol] 38.8 fL 35.1-43.9 [facility] Erythrocyte distribution width (RBC) [Ratio] 13.2 % 11.6-14.6 [facility] Immature granulocytes/100 WBC (Bld) 0.400 % 0.0-0.9 [facility] Comment on above: IG% - Immature Granu locytes (promyelocytes, myelocytes and metamyelocytes) > 1% indicates that a LEFT SHIFT is Present. MCH (RBC) [Entitic mass] 28.3 pg 27.0-32.0 [facility] Nucleated RBC/100 WBC (Bld) [Ratio] 0 % 0-5 [facility] MCHC Auto (RBC) [Mass/Vol]Or dered By: Dr. Wu on 12-11-2022 MCHC (RBC) [Mass/Vol] 34.4 g/dL 32-36 [facility] Mucus LM Ql (Urine sed)Order ed By: Dr. Wu on 12-11-2022 Mucus Ql (Urine sed) RARE /hpf [facility] Nitrite Test strip Ql (U)Ord ered By: Dr. Wu on 12-11-2022 Nitrite Ql (U) Negative Negative [facility] No Panel InformationOrdered By: Dr. Wu on 12-11-2022 MDMA (Ecstasy) Screen Negative < 500 ng/mL [facility] Urine Barbiturates Screen Negative < 200 ng/mL [facility] Urine Drug Screen Comment [facility] Comment on above: CONFIRMATORY TESTING FOR ALL [...] Methadone Screen Negative < 300 ng/mL [facility] Estimated Creatinine Clearance Calc 103.79 ml/min [facility] Estimated GFR (MDRD) Amer 105 mL/min >60 [facility] Comment on above: GFR Calc Estimated GFR (MDRD) Non-Af Amer 87 mL/min >60 [facility] Comment on above: Non- GFR Calc Ethyl Alcohol Level < 3.0 mg/dL [facility] Comment on above: The serum:whole bloo d ethanol ratio is approximately 1.14and varies slightly with hematocrit. Medical Alcohol reference interval and critical value innon-tolerant individuals; 50 - 100 Impairment 100 Intoxication 100 - 250 Severe Poisoning 250 - 400 Deep/possible fatal coma Troponin I High Sensitivity 6 pg/mL 3.0-78.0 [facility] Comment on above: Please Note: New Kira t Units and Gender Specific Reference Ranges. For more information see Policy Stat Procedure [place] High Sensitivity Troponin (TNIH) and attachments. Platelets bldOrdered By: Dr. Wu on 12-11-2022 Platelets (Bld) [#/Vol] 202 10*3/uL 150-450 [facility] Protein Test strip Ql (U)Ord ered By: Dr. Wu on 12-11-2022 Protein Ql (U) 15 mg/dl Negative [facility] Serum or plasma albumin yayo urement (mass/volume)Ordered By: Dr. Wu on 12-11-2022 Albumin [Mass/Vol] 3.5 g/dL 3.2-5.0 [facility] Serum or plasma albumin/glob ulin mass ratioOrdered By: Dr. Wu on 12-11-2022 Albumin/Globulin [Mass ratio] 1.1 {ratio} 0.9-2.4 [facility] Serum or plasma calcium yayo urement (mass/volume)Ordered By: Dr. Wu on 12-11-2022 Calcium [Mass/Vol] 8.6 mg/dL 8.5-10.1 [facility] Serum or plasma creatinine m easurement (mass/volume)Ordered By: Dr. Wu on 12-11-2022 Creatinine [Mass/Vol] 0.93 mg/dL 0.70-1.30 [facility] Comment on above: The validity of the calculated GFR & GFRAA in patients over 70 years has not been determined. Clinical correlation is essential. Serum or plasma urea nitroge n measurement (mass/volume)Ordered By: Dr. Wu on 12-11-2022 Urea nitrogen [Mass/Vol] 8 mg/dL 7-18 [facility] Squamous epithelial cells de tection in urine sediment by light microscopyOrdered By: Dr. Wu on 12-11-2022 Epithelial cells.squamous LM Ql (Urine sed) 0 SEEN /hpf 0-5 [facility] Thin prep Papanicolaou smear with manual screeningOrdered By: Dr. Wu on 12-11-2022 Thin prep Papanicolaou smear with manual screening 5 U/L 15-37 [facility] Thin prep Papanicolaou smear with manual screening 7 5-15 [facility] Urine blood detectionOrdered By: Dr. Wu on 12-11-2022 RBC Ql (U) Negative Negative [facility] RBC Ql (U) 0 SEEN /hpf 0-5 [facility] Urine clarityOrdered By: Dr. Wu on 12-11-2022 Clarity (U) Clear Clear [facility] Urine color determinationOrd ered By: Dr. Wu on 12-11-2022 Color (U) Yellow Yellow [facility] Urine glucose detectionOrder ed By: Dr. Wu on 12-11-2022 Glucose Ql (U) 1000 mg/dl Normal [facility] Urine leukocyte esterase det ection by dipstickOrdered By: Dr. Wu on 12-11-2022 Leukocyte esterase Test strip Ql (U) Negative Negative [facility] Urine pHOrdered By: Dr. Humza ya on 02-11-2023 pH (U) 6.0 [pH] 5.0 - 8.0 [facility] Urine phencyclidine (PCP) de tectionOrdered By: Dr. Wu on 12-11-2022 Phencyclidine Ql (U) Negative < 25 ng/mL [facility] Urine sediment bacteria coun t by microscopy (number/high power field)Ordered By: Dr. Wu on 12-11-2022 Bacteria LM.HPF (Urine sed) [#/Area] 0 /[HPF] None Seen [facility] Urine specific gravity measu rementOrdered By: Dr. Wu on 12-11-2022 Specific gravity (U) [Rel density] 1.015 1.002-1.030 [facility] Urobilinogen Auto test strip Ql (U)Ordered By: Dr. Wu on 12-11-2022 Urobilinogen Ql (U) Normal mg/dl Normal [facility] Absolute lymphocyte countOrd ered By: Dr. Castillo on 12-10-2022 Lymphocytes Auto (Unsp spec) [#/Vol] 1.79 10*3/uL 0.83-4.51 [facility] Basophil percentageOrdered B y: Dr. Castillo on 12-10-2022 Basophil percentage 0 SEEN /hpf 0-5 [facility] Basophils/100 WBC (Bld) 0.5 % 0-1 [facility] Chloride [Moles/Vol] 106 mmol/L 98-107 [facility] Eosinophils/100 WBC (Bld) 3.3 % 0-5 [facility] Glucose [Mass/Vol] 250 mg/dL 74-106 [facility] Comment on above: Glucose result great er than or equal to 200 mg/dLsuggests DIABETES MELLITUS per A.D.A. criteria. Neutrophils (Bld) [#/Vol] 5.0 10*3/uL 2.0-7.7 [facility] Neutrophils/100 WBC (Bld) 64.8 % 47-70 [facility] Potassium [Moles/Vol] 3.7 mmol/L 3.5-5.1 [facility] Sodium [Moles/Vol] 141 mmol/L 136-145 [facility] WBC (Bld) [#/Vol] 7.7 10*3/uL 4.4-11.0 [facility] Bilirubin Test strip Ql (U)O rdered By: Dr. Castillo on 12-10-2022 Bilirubin Ql (U) Negative Negative [facility] Blood erythrocytes count (nu mber/volume)Ordered By: Dr. Castillo on 12-10-2022 RBC (Bld) [#/Vol] 5.31 10*6/uL 4.6-6.2 [facility] Blood hemoglobin measurement (mass/volume)Ordered By: Dr. Castillo on 12-10-2022 Hemoglobin (Bld) [Mass/Vol] 15.1 g/dL 13.0-16.5 [facility] Blood lymphocytes/100 leukoc ytesOrdered By: Dr. Castillo on 12-10-2022 Lymphocytes/100 WBC (Bld) 23.4 % 19-41 [facility] Blood monocytes/100 leukocyt esOrdered By: Dr. Castillo on 12-10-2022 Monocytes/100 WBC (Bld) 7.3 % 0-10 [facility] Blood platelet mean volumeOr dered By: Dr. Castillo on 12-10-2022 Platelet mean volume (Bld) [Entitic vol] 9.3 fL 6.2-12.0 [facility] Determination of erythrocyte mean corpuscular volume (MCV)Ordered By: Dr. Castillo on 12-10-2022 MCV (RBC) [Entitic vol] 81.7 fL 80-94 [facility] Glucose Glucometer (BldC) [M ass/Vol]Ordered By: Dr. Castillo on 12-10-2022 Glucose [Mass/Vol] 261 mg/dL 74-106 [facility] Comment on above: MANAGEMENT OF PATIEN T CARE PER NURSING PROTOCOL Hematocrit Auto (Bld) [Volum e fraction]Ordered By: Dr. Castillo on 12-10-2022 Hematocrit (Bld) [Volume fraction] 43.4 % 40-54 [facility] Ketones Test strip Ql (U)Ord ered By: Dr. Castillo on 12-10-2022 Ketones Ql (U) Negative Negative [facility] Laboratory - Chemistry and C hemistry - challengeOrdered By: Dr. Castillo on 12-10-2022 CO2 [Moles/Vol] 30.0 mmol/L 21.0-32.0 [facility] Urea nitrogen/Creatinine [Mass ratio] 9.8 mg/mg 10-20 [facility] Laboratory - Hematology and Cell countsOrdered By: Dr. Castillo on 12-10-2022 Erythrocyte distribution width (RBC) [Entitic vol] 39.1 fL 35.1-43.9 [facility] Erythrocyte distribution width (RBC) [Ratio] 13.3 % 11.6-14.6 [facility] Immature granulocytes/100 WBC (Bld) 0.700 % 0.0-0.9 [facility] Comment on above: IG% - Immature Granu locytes (promyelocytes, myelocytes and metamyelocytes) > 1% indicates that a LEFT SHIFT is Present. MCH (RBC) [Entitic mass] 28.4 pg 27.0-32.0 [facility] Nucleated RBC/100 WBC (Bld) [Ratio] 0 % 0-5 [facility] MCHC Auto (RBC) [Mass/Vol]Or dered By: Dr. Castillo on 12-10-2022 MCHC (RBC) [Mass/Vol] 34.8 g/dL 32-36 [facility] Mucus LM Ql (Urine sed)Order ed By: Dr. Castillo on 12-10-2022 Mucus Ql (Urine sed) 0 SEEN /hpf [facility] Nitrite Test strip Ql (U)Ord ered By: Dr. Castillo on 12-10-2022 Nitrite Ql (U) Negative Negative [facility] No Panel InformationOrdered By: Dr. Castillo on 12-10-2022 Estimated Creatinine Clearance Calc 94.63 ml/min [facility] Estimated GFR (MDRD) Amer 95 mL/min >60 [facility] Comment on above: GFR Calc Estimated GFR (MDRD) Non-Af Amer 79 mL/min >60 [facility] Comment on above: Non- GFR Calc Platelets bldOrdered By: Dr. Castillo on 12-10-2022 Platelets (Bld) [#/Vol] 251 10*3/uL 150-450 [facility] Protein Test strip Ql (U)Ord ered By: Dr. Castillo on 12-10-2022 Protein Ql (U) 15 mg/dl Negative [facility] Serum or plasma calcium yayo urement (mass/volume)Ordered By: Dr. Castillo on 12-10-2022 Calcium [Mass/Vol] 9.3 mg/dL 8.5-10.1 [facility] Serum or plasma creatinine m easurement (mass/volume)Ordered By: Dr. Castillo on 12-10-2022 Creatinine [Mass/Vol] 1.02 mg/dL 0.70-1.30 [facility] Comment on above: The validity of the calculated GFR & GFRAA in patients over 70 years has not been determined. Clinical correlation is essential. Serum or plasma urea nitroge n measurement (mass/volume)Ordered By: Dr. Castillo on 12-10-2022 Urea nitrogen [Mass/Vol] 10 mg/dL 7-18 [facility] Squamous epithelial cells de tection in urine sediment by light microscopyOrdered By: Dr. Castillo on 12-10-2022 Epithelial cells.squamous LM Ql (Urine sed) 0-5 SEEN /hpf 0-5 [facility] Thin prep Papanicolaou smear with manual screeningOrdered By: Dr. Castillo on 12-10-2022 Thin prep Papanicolaou smear with manual screening 5 5-15 [facility] Urine blood detectionOrdered By: Dr. Castillo on 12-10-2022 RBC Ql (U) Negative Negative [facility] RBC Ql (U) 0 SEEN /hpf 0-5 [facility] Urine clarityOrdered By: Dr. Castillo on 12-10-2022 Clarity (U) Sl. Cloudy Clear [facility] Urine color determinationOrd ered By: Dr. Castillo on 12-10-2022 Color (U) Yellow Yellow [facility] Urine glucose detectionOrder ed By: Dr. Castillo on 12-10-2022 Glucose Ql (U) 1000 mg/dl Normal [facility] Urine leukocyte esterase det ection by dipstickOrdered By: Dr. Castillo on 12-10-2022 Leukocyte esterase Test strip Ql (U) Negative Negative [facility] Urine pHOrdered By: Dr. Castillo o n 12-10-2022 pH (U) 6.0 [pH] 5.0 - 8.0 [facility] Urine sediment bacteria coun t by microscopy (number/high power field)Ordered By: Dr. Castillo on 12-10-2022 Bacteria LM.HPF (Urine sed) [#/Area] 0 /[HPF] None Seen [facility] Urine specific gravity measu rementOrdered By: Dr. Castillo on 12-10-2022 Specific gravity (U) [Rel density] 1.015 1.002-1.030 [facility] Urobilinogen Auto test strip Ql (U)Ordered By: Dr. Castillo on 12-10-2022 Urobilinogen Ql (U) Normal mg/dl Normal [facility] Basophil percentageOrdered B y: Dr. Calle on 11-25-2022 Chloride [Moles/Vol] 102 mmol/L 98-107 [facility] Glucose [Mass/Vol] 429 mg/dL 74-106 [facility] Comment on above: Glucose result great er than or equal to 200 mg/dLsuggests DIABETES MELLITUS per A.D.A. criteria. Potassium [Moles/Vol] 4.0 mmol/L 3.5-5.1 [facility] Sodium [Moles/Vol] 136 mmol/L 136-145 [facility] Glucose Glucometer (BldC) [M ass/Vol]Ordered By: Dr. Calle on 11-25-2022 Glucose [Mass/Vol] 380 mg/dL 74-106 [facility] Comment on above: MANAGEMENT OF PATIEN T CARE PER NURSING PROTOCOL Laboratory - Chemistry and C hemistry - challengeOrdered By: Dr. Calle on 11-25-2022 CO2 [Moles/Vol] 28.0 mmol/L 21.0-32.0 [facility] Urea nitrogen/Creatinine [Mass ratio] 11.3 mg/mg 10-20 [facility] No Panel InformationOrdered By: Dr. Calle on 11-25-2022 Estimated Creatinine Clearance Calc 99.51 ml/min [facility] Estimated GFR (MDRD) Amer 101 mL/min >60 [facility] Comment on above: GFR Calc Estimated GFR (MDRD) Non-Af Amer 83 mL/min >60 [facility] Comment on above: Non- GFR Calc Serum or plasma calcium yayo urement (mass/volume)Ordered By: Dr. Calle on 11-25-2022 Calcium [Mass/Vol] 9.0 mg/dL 8.5-10.1 [facility] Serum or plasma creatinine m easurement (mass/volume)Ordered By: Dr. Calle on 11-25-2022 Creatinine [Mass/Vol] 0.97 mg/dL 0.70-1.30 [facility] Comment on above: The validity of the calculated GFR & GFRAA in patients over 70 years has not been determined. Clinical correlation is essential. Serum or plasma urea nitroge n measurement (mass/volume)Ordered By: Dr. Calle on 11-25-2022 Urea nitrogen [Mass/Vol] 11 mg/dL 7-18 [facility] Thin prep Papanicolaou smear with manual screeningOrdered By: Dr. Calle on 11-25-2022 Thin prep Papanicolaou smear with manual screening 6 5-15 [facility] Influenza virus A and B and SARS-CoV-2 (COVID-19) Ag panel - Upper respiratory specimOrdered By: Johann Lemons on 10-30-2022 SARS-CoV-2 (COVID-19) RNA IOANA+probe Ql (Resp) [facility] Absolute lymphocyte countOrd ered By: ED PROVIDER on 10-29-2022 Lymphocytes Auto (Unsp spec) [#/Vol] 1.87 10*3/uL 0.83-4.51 [facility] Basophil percentageOrdered B y: ED PROVIDER on 10-29-2022 Basophils/100 WBC (Bld) 0.3 % 0-1 [facility] Chloride [Moles/Vol] 104 mmol/L 98-107 [facility] Eosinophils/100 WBC (Bld) 2.0 % 0-5 [facility] Glucose [Mass/Vol] 361 mg/dL 74-106 [facility] Comment on above: Glucose result great er than or equal to 200 mg/dLsuggests DIABETES MELLITUS per A.D.A. criteria. Neutrophils (Bld) [#/Vol] 8.6 10*3/uL 2.0-7.7 [facility] Neutrophils/100 WBC (Bld) 75.0 % 47-70 [facility] Potassium [Moles/Vol] 4.0 mmol/L 3.5-5.1 [facility] Sodium [Moles/Vol] 136 mmol/L 136-145 [facility] WBC (Bld) [#/Vol] 11.5 10*3/uL 4.4-11.0 [facility] Blood erythrocytes count (nu mber/volume)Ordered By: ED PROVIDER on 10-29-2022 RBC (Bld) [#/Vol] 5.15 10*6/uL 4.6-6.2 [facility] Blood hemoglobin measurement (mass/volume)Ordered By: ED PROVIDER on 10-29-2022 Hemoglobin (Bld) [Mass/Vol] 14.8 g/dL 13.0-16.5 [facility] Blood lymphocytes/100 leukoc ytesOrdered By: ED PROVIDER on 10-29-2022 Lymphocytes/100 WBC (Bld) 16.2 % 19-41 [facility] Blood monocytes/100 leukocyt esOrdered By: ED PROVIDER on 10-29-2022 Monocytes/100 WBC (Bld) 6.2 % 0-10 [facility] Blood platelet mean volumeOr dered By: ED PROVIDER on 10-29-2022 Platelet mean volume (Bld) [Entitic vol] 9.5 fL 6.2-12.0 [facility] Determination of erythrocyte mean corpuscular volume (MCV)Ordered By: ED PROVIDER on 10-29-2022 MCV (RBC) [Entitic vol] 81.9 fL 80-94 [facility] Hematocrit Auto (Bld) [Volum e fraction]Ordered By: ED PROVIDER on 10-29-2022 Hematocrit (Bld) [Volume fraction] 42.2 % 40-54 [facility] Laboratory - Chemistry and C hemistry - challengeOrdered By: ED PROVIDER on 10-29-2022 CO2 [Moles/Vol] 26.0 mmol/L 21.0-32.0 [facility] Urea nitrogen/Creatinine [Mass ratio] 14.8 mg/mg 10-20 [facility] Laboratory - Chemistry and C hemistry - challengeOrdered By: Johann Lemons on 10-29-2022 Magnesium [Mass/Vol] 1.7 mg/dL 1.6-2.6 [facility] Laboratory - Hematology and Cell countsOrdered By: ED PROVIDER on 10-29-2022 Erythrocyte distribution width (RBC) [Entitic vol] 38.6 fL 35.1-43.9 [facility] Erythrocyte distribution width (RBC) [Ratio] 13.1 % 11.6-14.6 [facility] Immature granulocytes/100 WBC (Bld) 0.300 % 0.0-0.9 [facility] Comment on above: IG% - Immature Granu locytes (promyelocytes, myelocytes and metamyelocytes) > 1% indicates that a LEFT SHIFT is Present. MCH (RBC) [Entitic mass] 28.7 pg 27.0-32.0 [facility] Nucleated RBC/100 WBC (Bld) [Ratio] 0 % 0-5 [facility] MCHC Auto (RBC) [Mass/Vol]Or dered By: ED PROVIDER on 10-29-2022 MCHC (RBC) [Mass/Vol] 35.1 g/dL 32-36 [facility] No Panel InformationOrdered By: ED PROVIDER on 10-29-2022 Estimated Creatinine Clearance Calc 83.93 ml/min [facility] Estimated GFR (MDRD) Amer 83 mL/min >60 [facility] Comment on above: GFR Calc Estimated GFR (MDRD) Non-Af Amer 68 mL/min >60 [facility] Comment on above: Non- GFR Calc Platelets bldOrdered By: ED PROVIDER on 10-29-2022 Platelets (Bld) [#/Vol] 224 10*3/uL 150-450 [facility] Serum or plasma calcium yayo urement (mass/volume)Ordered By: ED PROVIDER on 10-29-2022 Calcium [Mass/Vol] 8.9 mg/dL 8.5-10.1 [facility] Serum or plasma creatinine m easurement (mass/volume)Ordered By: ED PROVIDER on 10-29-2022 Creatinine [Mass/Vol] 1.15 mg/dL 0.70-1.30 [facility] Comment on above: The validity of the calculated GFR & GFRAA in patients over 70 years has not been determined. Clinical correlation is essential. Serum or plasma urea nitroge n measurement (mass/volume)Ordered By: ED PROVIDER on 10-29-2022 Urea nitrogen [Mass/Vol] 17 mg/dL 7-18 [facility] Thin prep Papanicolaou smear with manual screeningOrdered By: ED PROVIDER on 10-29-2022 Thin prep Papanicolaou smear with manual screening 6 5-15 [facility] Absolute lymphocyte countOrd ered By: Dr. Wu on 09-18-2022 Lymphocytes Auto (Unsp spec) [#/Vol] 1.62 10*3/uL 0.83-4.51 [facility] Basophil percentageOrdered B y: Dr. Wu on 09-18-2022 Basophils/100 WBC (Bld) 0.5 % 0-1 [facility] Bilirubin [Mass/Vol] 0.50 mg/dL 0.20-1.00 [facility] Comment on above: For patients on eltr ombopag therapy, use of [employer] [place] TBIL is not recommended. Chloride [Moles/Vol] 106 mmol/L 98-107 [facility] Eosinophils/100 WBC (Bld) 3.5 % 0-5 [facility] Glucose [Mass/Vol] 262 mg/dL 74-106 [facility] Comment on above: Glucose result great er than or equal to 200 mg/dLsuggests DIABETES MELLITUS per A.D.A. criteria. Neutrophils (Bld) [#/Vol] 5.4 10*3/uL 2.0-7.7 [facility] Neutrophils/100 WBC (Bld) 68.0 % 47-70 [facility] Potassium [Moles/Vol] 3.7 mmol/L 3.5-5.1 [facility] Protein [Mass/Vol] 7.1 g/dL 6.4-8.2 [facility] Sodium [Moles/Vol] 137 mmol/L 136-145 [facility] WBC (Bld) [#/Vol] 7.9 10*3/uL 4.4-11.0 [facility] Blood erythrocytes count (nu mber/volume)Ordered By: Dr. Wu on 09-18-2022 RBC (Bld) [#/Vol] 4.87 10*6/uL 4.6-6.2 [facility] Blood hemoglobin measurement (mass/volume)Ordered By: Dr. Wu on 09-18-2022 Hemoglobin (Bld) [Mass/Vol] 14.6 g/dL 13.0-16.5 [facility] Blood lymphocytes/100 leukoc ytesOrdered By: Dr. Wu on 09-18-2022 Lymphocytes/100 WBC (Bld) 20.4 % 19-41 [facility] Blood monocytes/100 leukocyt esOrdered By: Dr. Wu on 09-18-2022 Monocytes/100 WBC (Bld) 7.2 % 0-10 [facility] Blood platelet mean volumeOr dered By: Dr. Wu on 09-18-2022 Platelet mean volume (Bld) [Entitic vol] 9.1 fL 6.2-12.0 [facility] Determination of erythrocyte mean corpuscular volume (MCV)Ordered By: Dr. Wu on 09-18-2022 MCV (RBC) [Entitic vol] 83.2 fL 80-94 [facility] Hematocrit Auto (Bld) [Volum e fraction]Ordered By: Dr. Wu on 09-18-2022 Hematocrit (Bld) [Volume fraction] 40.5 % 40-54 [facility] Laboratory - Chemistry and C hemistry - challengeOrdered By: Dr. Wu on 09-18-2022 ALP [Catalytic activity/Vol] 75 U/L 45-117 [facility] ALT [Catalytic activity/Vol] 16 U/L 16-61 [facility] CO2 [Moles/Vol] 24.0 mmol/L 21.0-32.0 [facility] Globulin (S) [Mass/Vol] 3.5 g/dL 2.2-4.2 [facility] Lipase [Catalytic activity/Vol] 64 U/L 73-393 [facility] Urea nitrogen/Creatinine [Mass ratio] 16.3 mg/mg 10-20 [facility] Laboratory - Hematology and Cell countsOrdered By: Dr. Wu on 09-18-2022 Erythrocyte distribution width (RBC) [Entitic vol] 39.2 fL 35.1-43.9 [facility] Erythrocyte distribution width (RBC) [Ratio] 13.1 % 11.6-14.6 [facility] Immature granulocytes/100 WBC (Bld) 0.400 % 0.0-0.9 [facility] Comment on above: IG% - Immature Granu locytes (promyelocytes, myelocytes and metamyelocytes) > 1% indicates that a LEFT SHIFT is Present. MCH (RBC) [Entitic mass] 30.0 pg 27.0-32.0 [facility] Nucleated RBC/100 WBC (Bld) [Ratio] 0 % 0-5 [facility] MCHC Auto (RBC) [Mass/Vol]Or dered By: Dr. Wu on 09-18-2022 MCHC (RBC) [Mass/Vol] 36.0 g/dL 32-36 [facility] No Panel InformationOrdered By: Dr. Wu on 09-18-2022 Estimated Creatinine Clearance Calc 98.49 ml/min [facility] Estimated GFR (MDRD) Amer 100 mL/min >60 [facility] Comment on above: GFR Calc Estimated GFR (MDRD) Non-Af Amer 82 mL/min >60 [facility] Comment on above: Non- GFR Calc Ethyl Alcohol Level < 3.0 mg/dL [facility] Comment on above: The serum:whole bloo d ethanol ratio is approximately 1.14and varies slightly with hematocrit. Medical Alcohol reference interval and critical value innon-tolerant individuals; 50 - 100 Impairment 100 Intoxication 100 - 250 Severe Poisoning 250 - 400 Deep/possible fatal coma Platelets bldOrdered By: Dr. Wu on 09-18-2022 Platelets (Bld) [#/Vol] 188 10*3/uL 150-450 [facility] Serum or plasma albumin yayo urement (mass/volume)Ordered By: Dr. Wu on 09-18-2022 Albumin [Mass/Vol] 3.6 g/dL 3.2-5.0 [facility] Serum or plasma albumin/glob ulin mass ratioOrdered By: Dr. Wu on 09-18-2022 Albumin/Globulin [Mass ratio] 1.0 {ratio} 0.9-2.4 [facility] Serum or plasma calcium yayo urement (mass/volume)Ordered By: Dr. Wu on 09-18-2022 Calcium [Mass/Vol] 9.1 mg/dL 8.5-10.1 [facility] Serum or plasma creatinine m easurement (mass/volume)Ordered By: Dr. Wu on 09-18-2022 Creatinine [Mass/Vol] 0.98 mg/dL 0.70-1.30 [facility] Comment on above: The validity of the calculated GFR & GFRAA in patients over 70 years has not been determined. Clinical correlation is essential. Serum or plasma urea nitroge n measurement (mass/volume)Ordered By: Dr. Wu on 09-18-2022 Urea nitrogen [Mass/Vol] 16 mg/dL 7-18 [facility] Thin prep Papanicolaou smear with manual screeningOrdered By: Dr. Wu on 09-18-2022 Thin prep Papanicolaou smear with manual screening 9 U/L 15-37 [facility] Thin prep Papanicolaou smear with manual screening 7 5-15 [facility] Absolute lymphocyte countOrd ered By: Dr. Mathew on 08-07-2022 Lymphocytes Auto (Unsp spec) [#/Vol] 1.92 10*3/uL 0.83-4.51 [facility] Basophil percentageOrdered B y: Dr. Mathew on 08-07-2022 Basophil percentage 0 SEEN /hpf 0-5 [facility] Basophils/100 WBC (Bld) 0.3 % 0-1 [facility] Bilirubin [Mass/Vol] 0.40 mg/dL 0.20-1.00 [facility] Comment on above: For patients on eltr ombopag therapy, use of [employer] [place] TBIL is not recommended. Chloride [Moles/Vol] 108 mmol/L 98-107 [facility] Eosinophils/100 WBC (Bld) 3.1 % 0-5 [facility] Glucose [Mass/Vol] 194 mg/dL 74-106 [facility] Comment on above: Fasting Glucose resu lt greater than or equal to 126 mg/dL suggests DIABETES MELLITUS per A.D.A. criteria. Neutrophils (Bld) [#/Vol] 6.2 10*3/uL 2.0-7.7 [facility] Neutrophils/100 WBC (Bld) 68.4 % 47-70 [facility] Potassium [Moles/Vol] 3.6 mmol/L 3.5-5.1 [facility] Protein [Mass/Vol] 7.5 g/dL 6.4-8.2 [facility] Sodium [Moles/Vol] 142 mmol/L 136-145 [facility] WBC (Bld) [#/Vol] 9.1 10*3/uL 4.4-11.0 [facility] Bilirubin Test strip Ql (U)O rdered By: Dr. Mathew on 08-07-2022 Bilirubin Ql (U) Negative Negative [facility] Blood erythrocytes count (nu mber/volume)Ordered By: Dr. Mathew on 08-07-2022 RBC (Bld) [#/Vol] 5.01 10*6/uL 4.6-6.2 [facility] Blood hemoglobin measurement (mass/volume)Ordered By: Dr. Mathew on 08-07-2022 Hemoglobin (Bld) [Mass/Vol] 14.4 g/dL 13.0-16.5 [facility] Blood lymphocytes/100 leukoc ytesOrdered By: Dr. Mathew on 08-07-2022 Lymphocytes/100 WBC (Bld) 21.1 % 19-41 [facility] Blood monocytes/100 leukocyt esOrdered By: Dr. Mathew on 08-07-2022 Monocytes/100 WBC (Bld) 6.7 % 0-10 [facility] Blood platelet mean volumeOr dered By: Dr. Mathew on 08-07-2022 Platelet mean volume (Bld) [Entitic vol] 9.5 fL 6.2-12.0 [facility] Determination of erythrocyte mean corpuscular volume (MCV)Ordered By: Dr. Mathew on 08-07-2022 MCV (RBC) [Entitic vol] 84.0 fL 80-94 [facility] Glucose Glucometer (dC) [M ass/Vol]Ordered By: Dr. Mathew on 08-07-2022 Glucose [Mass/Vol] 193 mg/dL 74-106 [facility] Comment on above: MANAGEMENT OF PATIEN T CARE PER NURSING PROTOCOL Hematocrit Auto (Bld) [Volum e fraction]Ordered By: Dr. Mathew on 08-07-2022 Hematocrit (Bld) [Volume fraction] 42.1 % 40-54 [facility] Ketones Test strip Ql (U)Ord ered By: Dr. Mathew on 08-07-2022 Ketones Ql (U) Negative Negative [facility] Laboratory - Chemistry and C hemistry - challengeOrdered By: Dr. Mathew on 08-07-2022 ALP [Catalytic activity/Vol] 77 U/L 45-117 [facility] ALT [Catalytic activity/Vol] 16 U/L 16-61 [facility] CO2 [Moles/Vol] 28.0 mmol/L 21.0-32.0 [facility] Globulin (S) [Mass/Vol] 3.6 g/dL 2.2-4.2 [facility] Urea nitrogen/Creatinine [Mass ratio] 8.7 mg/mg 10-20 [facility] Laboratory - Hematology and Cell countsOrdered By: Dr. Mathew on 08-07-2022 Erythrocyte distribution width (RBC) [Entitic vol] 42.5 fL 35.1-43.9 [facility] Erythrocyte distribution width (RBC) [Ratio] 14.0 % 11.6-14.6 [facility] Immature granulocytes/100 WBC (Bld) 0.400 % 0.0-0.9 [facility] Comment on above: IG% - Immature Granu locytes (promyelocytes, myelocytes and metamyelocytes) > 1% indicates that a LEFT SHIFT is Present. MCH (RBC) [Entitic mass] 28.7 pg 27.0-32.0 [facility] Nucleated RBC/100 WBC (Bld) [Ratio] 0 % 0-5 [facility] MCHC Auto (RBC) [Mass/Vol]Or dered By: Dr. Mathew on 08-07-2022 MCHC (RBC) [Mass/Vol] 34.2 g/dL 32-36 [facility] Mucus LM Ql (Urine sed)Order ed By: Dr. Mathew on 08-07-2022 Mucus Ql (Urine sed) 0 SEEN /hpf [facility] Nitrite Test strip Ql (U)Ord ered By: Dr. Mathew on 08-07-2022 Nitrite Ql (U) Negative Negative [facility] No Panel InformationOrdered By: Dr. Mathew on 08-07-2022 Estimated Creatinine Clearance Calc 104.92 ml/min [facility] Estimated GFR (MDRD) Amer 107 mL/min >60 [facility] Comment on above: GFR Calc Estimated GFR (MDRD) Non-Af Amer 89 mL/min >60 [facility] Comment on above: Non- GFR Calc Platelets bldOrdered By: Dr. Mathew on 08-07-2022 Platelets (Bld) [#/Vol] 227 10*3/uL 150-450 [facility] Protein Test strip Ql (U)Ord ered By: Dr. Mathew on 08-07-2022 Protein Ql (U) Negative Negative [facility] Serum or plasma albumin yayo urement (mass/volume)Ordered By: Dr. Mathew on 08-07-2022 Albumin [Mass/Vol] 3.9 g/dL 3.2-5.0 [facility] Serum or plasma albumin/glob ulin mass ratioOrdered By: Dr. Mathew on 08-07-2022 Albumin/Globulin [Mass ratio] 1.1 {ratio} 0.9-2.4 [facility] Serum or plasma calcium yayo urement (mass/volume)Ordered By: Dr. Mathew on 08-07-2022 Calcium [Mass/Vol] 9.1 mg/dL 8.5-10.1 [facility] Serum or plasma creatinine m easurement (mass/volume)Ordered By: Dr. Mathew on 08-07-2022 Creatinine [Mass/Vol] 0.92 mg/dL 0.70-1.30 [facility] Comment on above: The validity of the calculated GFR & GFRAA in patients over 70 years has not been determined. Clinical correlation is essential. Serum or plasma urea nitroge n measurement (mass/volume)Ordered By: Dr. Mathew on 08-07-2022 Urea nitrogen [Mass/Vol] 8 mg/dL 7-18 [facility] Squamous epithelial cells de tection in urine sediment by light microscopyOrdered By: Dr. Mathew on 08-07-2022 Epithelial cells.squamous LM Ql (Urine sed) 0 SEEN /hpf 0-5 [facility] Thin prep Papanicolaou smear with manual screeningOrdered By: Dr. Mathew on 08-07-2022 Thin prep Papanicolaou smear with manual screening 7 U/L 15-37 [facility] Thin prep Papanicolaou smear with manual screening 6 5-15 [facility] Urine blood detectionOrdered By: Dr. Mathew on 08-07-2022 RBC Ql (U) Negative Negative [facility] RBC Ql (U) 0 SEEN /hpf 0-5 [facility] Urine clarityOrdered By: Dr. Mathew on 08-07-2022 Clarity (U) Clear Clear [facility] Urine color determinationOrd ered By: Dr. Mathew on 08-07-2022 Color (U) Straw Yellow [facility] Urine glucose detectionOrder ed By: Dr. Mathew on 08-07-2022 Glucose Ql (U) Normal mg/dl Normal [facility] Urine leukocyte esterase det ection by dipstickOrdered By: Dr. Mathew on 08-07-2022 Leukocyte esterase Test strip Ql (U) Negative Negative [facility] Urine pHOrdered By: Dr. Sandra aguirre on 08-07-2022 pH (U) 6.0 [pH] 5.0 - 8.0 [facility] Urine sediment bacteria coun t by microscopy (number/high power field)Ordered By: Dr. Mathew on 08-07-2022 Bacteria LM.HPF (Urine sed) [#/Area] 0 /[HPF] None Seen [facility] Urine specific gravity measu rementOrdered By: Dr. Mathew on 08-07-2022 Specific gravity (U) [Rel density] 1.010 1.002-1.030 [facility] Urobilinogen Auto test strip Ql (U)Ordered By: Dr. Mathew on 08-07-2022 Urobilinogen Ql (U) Normal mg/dl Normal [facility] Absolute lymphocyte counton 07-02-2022 Lymphocytes Auto (Unsp spec) [#/Vol] 1.81 10*3/uL 0.83-4.51 [facility] Work Phone: Basophil percentageon 2021 Basophils/100 WBC (Bld) 0.4 % 0-1 [facility] Work Phone: Chloride [Moles/Vol] 107 mmol/L 98-107 [facility] Work Phone: Eosinophils/100 WBC (Bld) 2.5 % 0-5 [facility] Work Phone: Glucose [Mass/Vol] 132 mg/dL 74-106 [facility] Work Phone: Comment on above: Fasting Glucose resu lt greater than or equal to 126 mg/dL suggests DIABETES MELLITUS per A.D.A. criteria. Neutrophils (Bld) [#/Vol] 4.9 10*3/uL 2.0-7.7 [facility] Work Phone: Neutrophils/100 WBC (Bld) 64.6 % 47-70 [facility] Work Phone: Potassium [Moles/Vol] 3.7 mmol/L 3.5-5.1 [place] [facility] Work Phone: [phone] Sodium [Moles/Vol] 142 mmol/L 136-145 [place] [facility] Work Phone: WBC (Bld) [#/Vol] 7.5 10*3/uL 4.4-11.0 [place] [facility] Work Phone: Basophil percentage 0 SEEN /hpf 0-[address] [facility] Work Phone: [phone] Bilirubin Test strip Ql (U)o n 07-02-2022 Bilirubin Ql (U) Negative Negative [facility] Work Phone: [phone] Blood erythrocytes count (nu mber/volume)on 07-02-2022 RBC (Bld) [#/Vol] 5.07 10*6/uL 4.6-6.2 [facility] Work Phone: [phone] Blood hemoglobin measurement (mass/volume)on 07-02-2022 Hemoglobin (Bld) [Mass/Vol] 14.5 g/dL 13.0-16.5 [facility] Work Phone: Blood lymphocytes/100 leukoc yteson 07-02-2022 Lymphocytes/100 WBC (Bld) 24.1 % 19-41 [facility] Work Phone: Blood monocytes/100 leukocyt eson 07-02-2022 Monocytes/100 WBC (Bld) 8.1 % 0-10 [facility] Work Phone: Blood platelet mean volumeon 07-02-2022 Platelet mean volume (Bld) [Entitic vol] 9.1 fL 6.2-12.0 [facility] Work Phone: [phone] Determination of erythrocyte mean corpuscular volume (MCV)on 07-02-2022 MCV (RBC) [Entitic vol] 82.6 fL 80-94 [facility] Work Phone: Hematocrit Auto (Bld) [Volum e fraction]on 07-02-2022 Hematocrit (Bld) [Volume fraction] 41.9 % 40-54 [facility] Work Phone: Ketones Test strip Ql (U)on 07-02-2022 Ketones Ql (U) Negative Negative [facility] Work Phone: Laboratory - Chemistry and C hemistry - challengeon 07-02-2022 CO2 [Moles/Vol] 30.0 mmol/L 21.0-32.0 [facility] Work Phone: Urea nitrogen/Creatinine [Mass ratio] 16.1 mg/mg 10-20 [facility] Work Phone: Laboratory - Hematology and Cell countson 07-02-2022 Erythrocyte distribution width (RBC) [Entitic vol] 40.1 fL 35.1-43.9 [facility] Work Phone: [phone] Erythrocyte distribution width (RBC) [Ratio] 13.5 % 11.6-14.6 [facility] Work Phone: [phone] Immature granulocytes/100 WBC (Bld) 0.300 % 0.0-0.9 [facility] Work Phone: Comment on above: IG% - Immature Granu locytes (promyelocytes, myelocytes and metamyelocytes) > 1% indicates that a LEFT SHIFT is Present. MCH (RBC) [Entitic mass] 28.6 pg 27.0-32.0 [facility] Work Phone: [phone] Nucleated RBC/100 WBC (Bld) [Ratio] 0 % 0-5 [facility] Work Phone: MCHC Auto (RBC) [Mass/Vol]on 07-02-2022 MCHC (RBC) [Mass/Vol] 34.6 g/dL 32-36 [facility]: Mucus LM Ql (Urine sed)on Mucus Ql (Urine sed) 1+ /[facility]: Nitrite Test strip Ql (U)on 07-02-2022 Nitrite Ql (U) Negative Negative [facility] Work Phone: No Panel Informationon 07-02 Estimated Creatinine Clearance Calc 110.95 ml/min [facility] Work Phone: Estimated GFR (MDRD) Amer 114 mL/min >60 [facility] Work Phone: Comment on above: GFR Calc Estimated GFR (MDRD) Non-Af Amer 94 mL/min >60 [facility] Work Phone: Comment on above: Non- GFR Calc Platelets bldon 07-02-2022 Platelets (Bld) [#/Vol] 189 10*3/uL 150-450 [facility] Work Phone: Protein Test strip Ql (U)on 07-02-2022 Protein Ql (U) 15 mg/dl Negative [facility] Work Phone: Serum or plasma calcium yayo urement (mass/volume)on 07-02-2022 Calcium [Mass/Vol] 9.1 mg/dL 8.5-10.1 [facility] Work Phone: Serum or plasma creatinine m easurement (mass/volume)on 07-02-2022 Creatinine [Mass/Vol] 0.87 mg/dL 0.70-1.30 [facility] Work Phone: Comment on above: The validity of the calculated GFR & GFRAA in patients over 70 years has not been determined. Clinical correlation is essential. Serum or plasma urea nitroge n measurement (mass/volume)on 07-02-2022 Urea nitrogen [Mass/Vol] 14 mg/dL 7-18 [facility] Work Phone: Squamous epithelial cells de tection in urine sediment by light microscopyon 07-02-2022 Epithelial cells.squamous LM Ql (Urine sed) 0-5 SEEN /hpf 0-5 [facility] Work Phone: Thin prep Papanicolaou smear with manual screeningon 07-02-2022 Thin prep Papanicolaou smear with manual screening 5 5-15 [facility] Work Phone: Urine blood detectionon RBC Ql (U) Negative Negative [facility] Work Phone: [phone] RBC Ql (U) 0 SEEN /hpf 0-5 [facility] Work Phone: Urine clarityon 07-02-2022 Clarity (U) Clear Clear [facility] Work Phone: Urine color determinationon 07-02-2022 Color (U) Yellow Yellow [facility] Work Phone: Urine glucose detectionon Glucose Ql (U) 100 mg/dl Normal [facility] Work Phone: [phone] Urine leukocyte esterase det ection by dipstickon 07-02-2022 Leukocyte esterase Test strip Ql (U) Negative Negative [facility] Work Phone: Urine pHon 07-02-2022 pH (U) 7.0 [pH] 5.0 - 8.0 [facility] Work Phone: [phone] Urine sediment bacteria coun t by microscopy (number/high power field)on 07-02-2022 Bacteria LM.HPF (Urine sed) [#/Area] 1 /[HPF] None Seen [facility] Work Phone: [phone] Urine specific gravity measu rementon 07-02-2022 Specific gravity (U) [Rel density] 1.010 1.002-1.030 [facility] Work Phone: [phone] Urobilinogen Auto test strip Ql (U)on 07-02-2022 Urobilinogen Ql (U) 1 mg/dl Normal [facility] Work Phone: [phone] Absolute lymphocyte counton 04-26-2022 Lymphocytes Auto (Unsp spec) [#/Vol] 1.44 10*3/uL 0.83-4.51 [facility] Work Phone: [phone] Basophil percentageon 2021 Basophil percentage 0 SEEN /hpf 0-5 [facility] Work Phone: Basophils/100 WBC (Bld) 0.3 % 0-1 [facility] Work Phone: Chloride [Moles/Vol] 109 mmol/L 98-107 [facility] Work Phone: Eosinophils/100 WBC (Bld) 4.3 % 0-5 [facility] Work Phone: Glucose [Mass/Vol] 121 mg/dL 74-106 [facility] Work Phone: Comment on above: Fasting Glucose resu lt from 100 to 125 mg/dL suggests IMPAIRED HOMEOSTASIS per A.D.A. criteria. Neutrophils (Bld) [#/Vol] 4.4 10*3/uL 2.0-7.7 [facility] Work Phone: Neutrophils/100 WBC (Bld) 66.3 % 47-70 [facility] Work Phone: Potassium [Moles/Vol] 3.6 mmol/L 3.5-5.1 [facility] Work Phone: Sodium [Moles/Vol] 142 mmol/L 136-145 [facility] Work Phone: WBC (Bld) [#/Vol] 6.7 10*3/uL 4.4-11.0 [facility] Work Phone: [phone] Bilirubin Test strip Ql (U)o n 04-26-2022 Bilirubin Ql (U) Negative Negative [facility] Work Phone: Blood erythrocytes count (nu mber/volume)on 04-26-2022 RBC (Bld) [#/Vol] 4.97 10*6/uL 4.6-6.2 [facility] Work Phone: Blood hemoglobin measurement (mass/volume)on 04-26-2022 Hemoglobin (Bld) [Mass/Vol] 14.1 g/dL 13.0-16.5 [facility] Work Phone: Blood lymphocytes/100 leukoc yteson 04-26-2022 Lymphocytes/100 WBC (Bld) 21.5 % 19-41 [facility] Work Phone: Blood monocytes/100 leukocyt eson 04-26-2022 Monocytes/100 WBC (Bld) 7.3 % 0-10 [facility] Work Phone: [phone] Blood platelet mean volumeon 04-26-2022 Platelet mean volume (Bld) [Entitic vol] 9.1 fL 6.2-12.0 [facility] Work Phone: Determination of erythrocyte mean corpuscular volume (MCV)on 04-26-2022 MCV (RBC) [Entitic vol] 80.7 fL 80-94 [facility] Work Phone: [phone] Hematocrit Auto (Bld) [Volum e fraction]on 04-26-2022 Hematocrit (Bld) [Volume fraction] 40.1 % 40-54 [facility] Work Phone: Ketones Test strip Ql (U)on 04-26-2022 Ketones Ql (U) Negative Negative [facility] Work Phone: Laboratory - Chemistry and C hemistry - challengeon 04-26-2022 CO2 [Moles/Vol] 28.0 mmol/L 21.0-32.0 [facility] Work Phone: Urea nitrogen/Creatinine [Mass ratio] 10.9 mg/mg 10-20 [facility] Work Phone: Laboratory - Hematology and Cell countson 04-26-2022 Erythrocyte distribution width (RBC) [Entitic vol] 38.6 fL 35.1-43.9 [facility] Work Phone: [phone] Erythrocyte distribution width (RBC) [Ratio] 13.4 % 11.6-14.6 [facility] Work Phone: [phone] Immature granulocytes/100 WBC (Bld) 0.300 % 0.0-0.9 [facility] Work Phone: Comment on above: IG% - Immature Granu locytes (promyelocytes, myelocytes and metamyelocytes) > 1% indicates that a LEFT SHIFT is Present. MCH (RBC) [Entitic mass] 28.4 pg .0-32.0 [facility] Work Phone: Nucleated RBC/100 WBC (Bld) [Ratio] 0 % 0-5 [facility] Work Phone: MCHC Auto (RBC) [Mass/Vol]on 04-26-2022 MCHC (RBC) [Mass/Vol] 35.2 g/dL 32-36 [facility] Work Phone: Mucus LM Ql (Urine sed)on Mucus Ql (Urine sed) 0 SEEN /hpf [facility] Work Phone: Nitrite Test strip Ql (U)on 04-26-2022 Nitrite Ql (U) Negative Negative [facility] Work Phone: No Panel Informationon 04-26 Troponin I High Sensitivity 3 pg/mL 3.0-78.0 [facility] Work Phone: Comment on above: Please Note: New Kira t Units and Gender Specific Reference Ranges. For more information see Policy Stat Procedure [place] High Sensitivity Troponin (TNIH) and attachments. Estimated Creatinine Clearance Calc 116.30 ml/min [facility] Work Phone: Estimated GFR (MDRD) Amer 121 mL/min >60 [facility] Work Phone: Comment on above: GFR Calc Estimated GFR (MDRD) Non-Af Amer 100 mL/min >60 [facility] Work Phone: Comment on above: Non- GFR Calc Platelets bldon 04-26-2022 Platelets (Bld) [#/Vol] 191 10*3/uL 150-450 [facility] Work Phone: Protein Test strip Ql (U)on 04-26-2022 Protein Ql (U) Negative Negative [facility] Work Phone: Serum or plasma calcium yayo urement (mass/volume)on 04-26-2022 Calcium [Mass/Vol] 8.8 mg/dL 8.5-10.1 [facility] Work Phone: Serum or plasma creatinine m easurement (mass/volume)on 04-26-2022 Creatinine [Mass/Vol] 0.83 mg/dL 0.70-1.30 [facility] Work Phone: Comment on above: The validity of the calculated GFR & GFRAA in patients over 70 years has not been determined. Clinical correlation is essential. Serum or plasma urea nitroge n measurement (mass/volume)on 04-26-2022 Urea nitrogen [Mass/Vol] 9 mg/dL 7-18 [facility] Work Phone: Squamous epithelial cells de tection in urine sediment by light microscopyon 04-26-2022 Epithelial cells.squamous LM Ql (Urine sed) 0 SEEN /hpf 0-5 [facility] Work Phone: Thin prep Papanicolaou smear with manual screeningon 04-26-2022 Thin prep Papanicolaou smear with manual screening 5 5-15 [facility] Work Phone: Urine blood detectionon 04-01 RBC Ql (U) Negative Negative [facility] Work Phone: RBC Ql (U) 0 SEEN /hpf 0-5 [facility] Work Phone: Urine clarityon 04-26-2022 Clarity (U) Clear Clear [facility] Work Phone: Urine color determinationon 04-26-2022 Color (U) Yellow Yellow [facility] Work Phone: Urine glucose detectionon Glucose Ql (U) Normal mg/dl Normal [facility] Work Phone: Urine leukocyte esterase det ection by dipstickon 04-26-2022 Leukocyte esterase Test strip Ql (U) Negative Negative [facility] Work Phone: Urine pHon 04-26-2022 pH (U) 6.0 [pH] 5.0 - 8.0 [facility] Work Phone: Urine sediment bacteria coun t by microscopy (number/high power field)on 04-26-2022 Bacteria LM.HPF (Urine sed) [#/Area] 0 /[HPF] None Seen [facility] Work Phone: Urine specific gravity measu rementon 04-26-2022 Specific gravity (U) [Rel density] 1.010 1.002-1.030 [facility] Work Phone: Urobilinogen Auto test strip Ql (U)on 04-26-2022 Urobilinogen Ql (U) Normal mg/dl Normal [place] [facility] Work Phone: Glucose Glucometer (BldC) [M ass/Vol]on 03-20-2022 Glucose [Mass/Vol] 153 mg/dL 74-106 [facility] Work Phone: Comment on above: MANAGEMENT OF PATIEN T CARE PER NURSING PROTOCOL No Panel Informationon 03-20 D-Dimer Quantitative (PE/DVT) 0.75 FEU/ug/m 0.27-0.49 [facility] Work Phone: Comment on above: D-Dimer ELEVATED (>0 .49): Additional studies and clinicalassessments are indicated to conclude diagnosis of:Deep Vein Thrombosis (DVT) or Pulmonary Embolism (PE)CRITICAL VALUE VERIFIED. CALLED TO RACIEL JONES03/20/22 0754 Loida Townsend.RESULTS READ BACK BY SAME . Absolute lymphocyte counton 03-19-2022 Lymphocytes Auto (Unsp spec) [#/Vol] 1.56 10*3/uL 0.83-4.51 [facility] Work Phone: Assessment of wrist artery p atency prior to arterial punctureon 03-19-2022 Arterial patency Wrist artery --pre arterial puncture Positive [facility] Work Phone: Base excesson 03-19-2022 Base excess Calc (BldV) [Moles/Vol] 2 mmol/L -2-2 [facility] Work Phone: Basophil percentageon 2021 Basophil percentage 0-5 SEEN /hpf 0-5 [place] [facility] Work Phone: Basophil percentage 25.7 mmol/L 22-[address] [facility] Work Phone: Basophils/100 WBC (Bld) 92 % 95-99 [facility] Work Phone: Basophils/100 WBC (Bld) 0.5 % 0-1 [facility] Work Phone: Bilirubin [Mass/Vol] 1.10 mg/dL 0.20-1.00 [facility] Work Phone: [phone] Comment on above: For patients on eltr ombopag therapy, use of Dimension [place] TBIL is not recommended. Chloride [Moles/Vol] 106 mmol/L 98-107 [facility] Work Phone: Eosinophils/100 WBC (Bld) 2.4 % 0-5 [facility] Work Phone: Glucose [Mass/Vol] 167 mg/dL 74-106 [facility] Work Phone: Comment on above: Fasting Glucose resu lt greater than or equal to 126 mg/dL suggests DIABETES MELLITUS per A.D.A. criteria. Lactate [Moles/Vol] 1.2 mmol/L 0.4-2.0 [facility] Work Phone: Neutrophils (Bld) [#/Vol] 7.8 10*3/uL 2.0-7.7 [facility] Work Phone: Neutrophils/100 WBC (Bld) 74.4 % 47-70 [facility] Work Phone: Potassium [Moles/Vol] 3.6 mmol/L 3.5-5.1 [facility] Work Phone: Protein [Mass/Vol] 7.2 g/dL 6.4-8.2 [facility] Work Phone: Sodium [Moles/Vol] 141 mmol/L 136-145 [facility] Work Phone: WBC (Bld) [#/Vol] 10.5 10*3/uL 4.4-11.0 [facility] Work Phone: Bilirubin Test strip Ql (U)o n 05-20-2022 Bilirubin Ql (U) Negative Negative [facility] Work Phone: [phone] Blood erythrocytes count (nu mber/volume)on 03-19-2022 RBC (Bld) [#/Vol] 5.05 10*6/uL 4.6-6.2 [facility] Work Phone: Blood hemoglobin measurement (mass/volume)on 03-19-2022 Hemoglobin (Bld) [Mass/Vol] 14.5 g/dL 13.0-16.5 [facility] Work Phone: Blood lymphocytes/100 leukoc yteson 03-19-2022 Lymphocytes/100 WBC (Bld) 14.9 % 19-41 [facility] Work Phone: Blood monocytes/100 leukocyt eson 03-19-2022 Monocytes/100 WBC (Bld) 7.3 % 0-10 [facility] Work Phone: Blood platelet mean volumeon 03-19-2022 Platelet mean volume (Bld) [Entitic vol] 9.1 fL 6.2-12.0 [facility] Work Phone: CO2 (BldA) [Partial pressure ]on 03-19-2022 CO2 (Bld) [Partial pressure] 37.6 mm[Hg] 35-45 [facility] Work Phone: [phone] Determination of erythrocyte mean corpuscular volume (MCV)on 03-19-2022 MCV (RBC) [Entitic vol] 83.4 fL 80-94 [facility] Work Phone: Hematocrit Auto (Bld) [Volum e fraction]on 03-19-2022 Hematocrit (Bld) [Volume fraction] 42.1 % 40-54 [facility] Work Phone: [phone] INR in Blood by Coagulation assayon 03-19-2022 INR Coag (Bld) [Relative time] 1.1 {INR} [facility] Work Phone: Ketones Test strip Ql (U)on 03-19-2022 Ketones Ql (U) Negative Negative [facility] Work Phone: [phone] Laboratory - Chemistry and C hemistry - challengeon 03-19-2022 ALP [Catalytic activity/Vol] 68 U/L 45-117 [facility] Work Phone: ALT [Catalytic activity/Vol] 14 U/L 16-61 [facility] Work Phone: CO2 [Moles/Vol] 28.0 mmol/L 21.0-32.0 [facility] Work Phone: Globulin (S) [Mass/Vol] 3.5 g/dL 2.2-4.2 [facility] Work Phone: Urea nitrogen/Creatinine [Mass ratio] 16.4 mg/mg 10-20 [facility] Work Phone: Laboratory - Coagulationon 0 03-19-2022 PT Coag (PPP) [Time] 14.1 s 11.7-14.9 [facility] Work Phone: [phone] Laboratory - Hematology and Cell countson 03-19-2022 Erythrocyte distribution width (RBC) [Entitic vol] 41.2 fL 35.1-43.9 [facility] Work Phone: [phone] Erythrocyte distribution width (RBC) [Ratio] 13.5 % 11.6-14.6 [facility] Work Phone: Immature granulocytes/100 WBC (Bld) 0.500 % 0.0-0.9 [facility] Work Phone: [phone] Comment on above: IG% - Immature Granu locytes (promyelocytes, myelocytes and metamyelocytes) > 1% indicates that a LEFT SHIFT is Present. MCH (RBC) [Entitic mass] 28.7 pg 27.0-32.0 [facility] Work Phone: Nucleated RBC/100 WBC (Bld) [Ratio] 0 % 0-5 [facility] Work Phone: MCHC Auto (RBC) [Mass/Vol]on 03-19-2022 MCHC (RBC) [Mass/Vol] 34.4 g/dL 32-36 [facility] Work Phone: Mucus LM Ql (Urine sed)on Mucus Ql (Urine sed) 0 SEEN /hpf [facility] Work Phone: Nitrite Test strip Ql (U)on 03-19-2022 Nitrite Ql (U) Negative Negative [facility] Work Phone: No Panel Informationon 03-19 SARS-CoV-2 & FLU Antigen (Rapid) [facility] Work Phone: Blood Gas Sample Site L Radial [facility] Work Phone: Blood Gas Specimen Type ART [facility] Work Phone: Blood Gas Total CO2 27 mmol/L [facility] Work Phone: Oxygen Delivery Device Room Air [facility] Work Phone: Estimated Creatinine Clearance Calc 88.88 ml/min [facility] Work Phone: Estimated GFR (MDRD) Amer 87 mL/min >60 [facility] Work Phone: Comment on above: GFR Calc Estimated GFR (MDRD) Non-Af Amer 72 mL/min >60 [facility] Work Phone: Comment on above: Non- GFR Calc Troponin I High Sensitivity < 3 pg/mL 3.0-78.0 [facility] Work Phone: Comment on above: Please Note: New Kira t Units and Gender Specific Reference Ranges. For more information see Policy Stat Procedure [place] High Sensitivity Troponin (TNIH) and attachments. Oxygen (BldA) [Partial press ure]on 03-19-2022 Oxygen (Bld) [Partial pressure] 62 mmHG 75-100 [facility] Work Phone: Platelets bldon 03-19-2022 Platelets (Bld) [#/Vol] 278 10*3/uL 150-450 [facility] Work Phone: Protein Test strip Ql (U)on 03-19-2022 Protein Ql (U) 30 mg/dl Negative [facility] Work Phone: Serum or plasma albumin yayo urement (mass/volume)on 03-19-2022 Albumin [Mass/Vol] 3.7 g/dL 3.2-5.0 [facility] Work Phone: Serum or plasma albumin/glob ulin mass ratioon 03-19-2022 Albumin/Globulin [Mass ratio] 1.1 {ratio} 0.9-2.4 [facility] Work Phone: Serum or plasma calcium yayo urement (mass/volume)on 03-19-2022 Calcium [Mass/Vol] 9.0 mg/dL 8.5-10.1 [facility] Work Phone: Serum or plasma creatinine m easurement (mass/volume)on 03-19-2022 Creatinine [Mass/Vol] 1.10 mg/dL 0.70-1.30 [facility] Work Phone: Comment on above: The validity of the calculated GFR & GFRAA in patients over 70 years has not been determined. Clinical correlation is essential. Serum or plasma urea nitroge n measurement (mass/volume)on 03-19-2022 Urea nitrogen [Mass/Vol] 18 mg/dL 7-18 [facility] Work Phone: Squamous epithelial cells de tection in urine sediment by light microscopyon 03-19-2022 Epithelial cells.squamous LM Ql (Urine sed) 0-5 SEEN /hpf 0-5 [facility] Work Phone: Thin prep Papanicolaou smear with manual screeningon 03-19-2022 Thin prep Papanicolaou smear with manual screening 10 U/L 15-37 [facility] Work Phone: Thin prep Papanicolaou smear with manual screening 7 5-15 [facility] Work Phone: Urine blood detectionon 03-01 RBC Ql (U) Negative Negative [facility] Work Phone: RBC Ql (U) 0 SEEN /hpf 0-5 [facility] Work Phone: Urine clarityon 03-19-2022 Clarity (U) Clear Clear [facility] Work Phone: Urine color determinationon 03-19-2022 Color (U) Yellow Yellow [facility] Work Phone: Urine glucose detectionon Glucose Ql (U) Normal mg/dl Normal [facility] Work Phone: Urine leukocyte esterase det ection by dipstickon 03-19-2022 Leukocyte esterase Test strip Ql (U) 25 /ul Negative [facility] Work Phone: [phone] Urine pHon 03-19-2022 pH (U) 5.0 [pH] 5.0 - 8.0 [facility] Work Phone: Urine sediment bacteria coun t by microscopy (number/high power field)on 03-19-2022 Bacteria LM.HPF (Urine sed) [#/Area] 0 /[HPF] None Seen [facility] Work Phone: Urine specific gravity measu rementon 03-19-2022 Specific gravity (U) [Rel density] 1.020 1.002-1.030 [facility] Work Phone: Urobilinogen Auto test strip Ql (U)on 03-19-2022 Urobilinogen Ql (U) 1 mg/dl Normal [facility] Work Phone: pH measurementon 03-19-2022 pH (Unsp spec) 7.44 [pH] 7.35-7.45 [facility] Work Phone: Absolute lymphocyte counton 03-02-2022 Lymphocytes Auto (Unsp spec) [#/Vol] 1.57 10*3/uL 0.83-4.51 [facility] Work Phone: Basophil percentageon 2021 Basophils/100 WBC (Bld) 0.7 % 0-1 [facility] Work Phone: Bilirubin [Mass/Vol] 0.40 mg/dL 0.20-1.00 [facility] Work Phone: Comment on above: For patients on eltr ombopag therapy, use of Dimension [place] TBIL is not recommended. Chloride [Moles/Vol] 108 mmol/L 98-107 [facility] Work Phone: Eosinophils/100 WBC (Bld) 3.8 % 0-5 [facility] Work Phone: Glucose [Mass/Vol] 222 mg/dL 74-106 [facility] Work Phone: Comment on above: Glucose result great er than or equal to 200 mg/dLsuggests DIABETES MELLITUS per A.D.A. criteria. Neutrophils (Bld) [#/Vol] 4.8 10*3/uL 2.0-7.7 [facility] Work Phone: Neutrophils/100 WBC (Bld) 66.5 % 47-70 [facility] Work Phone: Potassium [Moles/Vol] 3.5 mmol/L 3.5-5.1 [facility] Work Phone: Protein [Mass/Vol] 7.2 g/dL 6.4-8.2 [facility] Work Phone: Sodium [Moles/Vol] 141 mmol/L 136-145 [facility] Work Phone: WBC (Bld) [#/Vol] 7.2 10*3/uL 4.4-11.0 [facility] Work Phone: Blood erythrocytes count (nu mber/volume)on 03-02-2022 RBC (Bld) [#/Vol] 4.75 10*6/uL 4.6-6.2 [facility] Work Phone: Blood hemoglobin measurement (mass/volume)on 03-02-2022 Hemoglobin (Bld) [Mass/Vol] 13.7 g/dL 13.0-16.5 [facility] Work Phone: Blood lymphocytes/100 leukoc yteson 03-02-2022 Lymphocytes/100 WBC (Bld) 21.9 % 19-41 [facility] Work Phone: Blood monocytes/100 leukocyt eson 03-02-2022 Monocytes/100 WBC (Bld) 6.8 % 0-10 [facility] Work Phone: Blood platelet mean volumeon 03-02-2022 Platelet mean volume (Bld) [Entitic vol] 9.6 fL 6.2-12.0 [facility] Work Phone: [phone] Determination of erythrocyte mean corpuscular volume (MCV)on 03-02-2022 MCV (RBC) [Entitic vol] 82.1 fL 80-94 [facility] Work Phone: Hematocrit Auto (Bld) [Volum e fraction]on 03-02-2022 Hematocrit (Bld) [Volume fraction] 39.0 % 40-54 [facility] Work Phone: [phone] Laboratory - Chemistry and C hemistry - challengeon 03-02-2022 ALP [Catalytic activity/Vol] 69 U/L 45-117 [facility] Work Phone: [phone] ALT [Catalytic activity/Vol] 15 U/L 16-61 [facility] Work Phone: [phone] CO2 [Moles/Vol] 26.0 mmol/L 21.0-32.0 [facility] Work Phone: [phone] Globulin (S) [Mass/Vol] 3.5 g/dL 2.2-4.2 [facility] Work Phone: [phone] Urea nitrogen/Creatinine [Mass ratio] 14.9 mg/mg 10-20 [facility] Work Phone: Laboratory - Hematology and Cell countson 03-02-2022 Erythrocyte distribution width (RBC) [Entitic vol] 40.8 fL 35.1-43.9 [facility] Work Phone: [phone] Erythrocyte distribution width (RBC) [Ratio] 13.9 % 11.6-14.6 [facility] Work Phone: [phone] Immature granulocytes/100 WBC (Bld) 0.300 % 0.0-0.9 [facility] Work Phone: Comment on above: IG% - Immature Granu locytes (promyelocytes, myelocytes and metamyelocytes) > 1% indicates that a LEFT SHIFT is Present. MCH (RBC) [Entitic mass] 28.8 pg 27.0-32.0 [facility] Work Phone: Nucleated RBC/100 WBC (Bld) [Ratio] 0 % 0-5 [facility] Work Phone: MCHC Auto (RBC) [Mass/Vol]on 03-02-2022 MCHC (RBC) [Mass/Vol] 35.1 g/dL 32-36 [facility] Work Phone: No Panel Informationon 03-02 Estimated Creatinine Clearance Calc 104.00 ml/min [facility] Work Phone: Estimated GFR (MDRD) Amer 105 mL/min >60 [facility] Work Phone: Comment on above: GFR Calc Estimated GFR (MDRD) Non-Af Amer 86 mL/min >60 [facility] Work Phone: Comment on above: Non- GFR Calc Platelets bldon 03-02-2022 Platelets (Bld) [#/Vol] 221 10*3/uL 150-450 [facility] Work Phone: Serum or plasma albumin yayo urement (mass/volume)on 03-02-2022 Albumin [Mass/Vol] 3.7 g/dL 3.2-5.0 [facility] Work Phone: Serum or plasma albumin/glob ulin mass ratioon 03-02-2022 Albumin/Globulin [Mass ratio] 1.1 {ratio} 0.9-2.4 [facility] Work Phone: Serum or plasma calcium yayo urement (mass/volume)on 03-02-2022 Calcium [Mass/Vol] 8.5 mg/dL 8.5-10.1 [facility] Work Phone: Serum or plasma creatinine m easurement (mass/volume)on 03-02-2022 Creatinine [Mass/Vol] 0.94 mg/dL 0.70-1.30 [facility] Work Phone: Comment on above: The validity of the calculated GFR & GFRAA in patients over 70 years has not been determined. Clinical correlation is essential. Serum or plasma urea nitroge n measurement (mass/volume)on 03-02-2022 Urea nitrogen [Mass/Vol] 14 mg/dL 7-18 [facility] Work Phone: Thin prep Papanicolaou smear with manual screeningon 03-02-2022 Thin prep Papanicolaou smear with manual screening 8 U/L 15-37 [facility] Work Phone: Thin prep Papanicolaou smear with manual screening 7 5-15 [facility] Work Phone: Absolute lymphocyte counton 01-31-2022 Lymphocytes Auto (Unsp spec) [#/Vol] 1.83 10*3/uL 0.83-4.51 [facility] Work Phone: Basophil percentageon 2021 Basophils/100 WBC (Bld) 0.4 % 0-1 [facility] Work Phone: Bilirubin [Mass/Vol] 0.60 mg/dL 0.20-1.00 [facility] Work Phone: Comment on above: For patients on eltr ombopag therapy, use of [employer] [place] TBIL is not recommended. Chloride [Moles/Vol] 108 mmol/L 98-107 [facility] Work Phone: Eosinophils/100 WBC (Bld) 3.9 % 0-5 [facility] Work Phone: Glucose [Mass/Vol] 172 mg/dL 74-106 [facility] Work Phone: Comment on above: Fasting Glucose resu lt greater than or equal to 126 mg/dL suggests DIABETES MELLITUS per A.D.A. criteria. Neutrophils (Bld) [#/Vol] 5.6 10*3/uL 2.0-7.7 [facility] Work Phone: Neutrophils/100 WBC (Bld) 66.2 % 47-70 [facility] Work Phone: Potassium [Moles/Vol] 3.7 mmol/L 3.5-5.1 [facility] Work Phone: Protein [Mass/Vol] 7.0 g/dL 6.4-8.2 [facility]: Sodium [Moles/Vol] 140 mmol/L 136-145 [facility] Work Phone: WBC (Bld) [#/Vol] 8.4 10*3/uL 4.4-11.0 [facility] Work Phone: Blood erythrocytes count (nu mber/volume)on 01-31-2022 RBC (Bld) [#/Vol] 5.07 10*6/uL 4.6-6.2 [facility]: Blood hemoglobin measurement (mass/volume)on 01-31-2022 Hemoglobin (Bld) [Mass/Vol] 14.5 g/dL 13.0-16.5 [facility] Work Phone: Blood lymphocytes/100 leukoc yteson 01-31-2022 Lymphocytes/100 WBC (Bld) 21.8 % 19-41 [facility] Work Phone: Blood monocytes/100 leukocyt eson 01-31-2022 Monocytes/100 WBC (Bld) 7.3 % 0-10 [facility] Work Phone: Blood platelet mean volumeon 01-31-2022 Platelet mean volume (Bld) [Entitic vol] 9.1 fL 6.2-12.0 [facility] Work Phone: Determination of erythrocyte mean corpuscular volume (MCV)on 01-31-2022 MCV (RBC) [Entitic vol] 80.9 fL 80-94 [facility] Work Phone: Hematocrit Auto (Bld) [Volum e fraction]on 01-31-2022 Hematocrit (Bld) [Volume fraction] 41.0 % 40-54 [facility] Work Phone: Laboratory - Chemistry and C hemistry - challengeon 01-31-2022 ALP [Catalytic activity/Vol] 68 U/L 45-117 [facility] Work Phone: [phone] ALT [Catalytic activity/Vol] 14 U/L 16-61 [facility] Work Phone: [phone] CO2 [Moles/Vol] 26.0 mmol/L 21.0-32.0 [facility] Work Phone: [phone] Globulin (S) [Mass/Vol] 3.3 g/dL 2.2-4.2 [facility] Work Phone: [phone] Urea nitrogen/Creatinine [Mass ratio] 18.0 mg/mg 10-20 [facility] Work Phone: [phone] Laboratory - Hematology and Cell countson 01-31-2022 Erythrocyte distribution width (RBC) [Entitic vol] 39.8 fL 35.1-43.9 [facility] Work Phone: [phone] Erythrocyte distribution width (RBC) [Ratio] 13.8 % 11.6-14.6 [facility] Work Phone: [phone] Immature granulocytes/100 WBC (Bld) 0.400 % 0.0-0.9 [facility] Work Phone: [phone] Comment on above: IG% - Immature Granu locytes (promyelocytes, myelocytes and metamyelocytes) > 1% indicates that a LEFT SHIFT is Present. MCH (RBC) [Entitic mass] 28.6 pg 27.0-32.0 [facility] Work Phone: [phone] Nucleated RBC/100 WBC (Bld) [Ratio] 0 % 0-5 [facility] Work Phone: [phone] MCHC Auto (RBC) [Mass/Vol]on 01-31-2022 MCHC (RBC) [Mass/Vol] 35.4 g/dL 32-36 [facility] Work [facility]: No Panel Informationon 01-31 Estimated Creatinine Clearance Calc 125.34 ml/min [facility] Work Phone: Estimated GFR (MDRD) Amer 131 mL/min >60 [facility] Work Phone: Comment on above: GFR Calc Estimated GFR (MDRD) Non-Af Amer 108 mL/min >60 [facility] Work Phone: Comment on above: Non- GFR Calc Platelets bldon 01-31-2022 Platelets (Bld) [#/Vol] 222 10*3/uL 150-450 [facility] Work Phone: Serum or plasma albumin yayo urement (mass/volume)on 01-31-2022 Albumin [Mass/Vol] 3.7 g/dL 3.2-5.0 [facility] Work Phone: Serum or plasma albumin/glob ulin mass ratioon 01-31-2022 Albumin/Globulin [Mass ratio] 1.1 {ratio} 0.9-2.4 [facility] Work Phone: Serum or plasma calcium yayo urement (mass/volume)on 01-31-2022 Calcium [Mass/Vol] 8.4 mg/dL 8.5-10.1 [facility] Work Phone: Serum or plasma creatinine m easurement (mass/volume)on 01-31-2022 Creatinine [Mass/Vol] 0.78 mg/dL 0.70-1.30 [facility] Work Phone: Comment on above: The validity of the calculated GFR & GFRAA in patients over 70 years has not been determined. Clinical correlation is essential. Serum or plasma urea nitroge n measurement (mass/volume)on 01-31-2022 Urea nitrogen [Mass/Vol] 14 mg/dL 7-18 [facility] Work Phone: Thin prep Papanicolaou smear with manual screeningon 01-31-2022 Thin prep Papanicolaou smear with manual screening 13 U/L 15-37 [facility] Work Phone: Thin prep Papanicolaou smear with manual screening 6 5-15 [facility] Work Phone: Absolute lymphocyte counton 01-08-2022 Lymphocytes Auto (Unsp spec) [#/Vol] 1.33 10*3/uL 0.83-4.51 [facility] Work Phone: Basophil percentageon 2021 Basophils/100 WBC (Bld) 0.3 % 0-1 [facility] Work Phone: Bilirubin [Mass/Vol] 0.60 mg/dL 0.20-1.00 [facility] Work Phone: Comment on above: For patients on eltr ombopag therapy, use of [employer] [place] TBIL is not recommended. Chloride [Moles/Vol] 104 mmol/L 98-107 [facility] Work Phone: Eosinophils/100 WBC (Bld) 0.5 % 0-5 [facility] Work Phone: [phone] Glucose [Mass/Vol] 294 mg/dL 74-106 [facility] Work Phone: Comment on above: Glucose result great er than or equal to 200 mg/dLsuggests DIABETES MELLITUS per A.D.A. criteria. Neutrophils (Bld) [#/Vol] 8.1 10*3/uL 2.0-7.7 [facility] Work Phone: Neutrophils/100 WBC (Bld) 80.9 % 47-70 [facility] Work Phone: Potassium [Moles/Vol] 3.6 mmol/L 3.5-5.1 [facility] Work Phone: Protein [Mass/Vol] 7.6 g/dL 6.4-8.2 [facility] Work Phone: Sodium [Moles/Vol] 135 mmol/L 136-145 [facility] Work Phone: WBC (Bld) [#/Vol] 10.0 10*3/uL 4.4-11.0 [facility] Work Phone: Blood erythrocytes count (nu mber/volume)on 01-08-2022 RBC (Bld) [#/Vol] 5.06 10*6/uL 4.6-6.2 [facility] Work Phone: [phone] Blood hemoglobin measurement (mass/volume)on 01-08-2022 Hemoglobin (Bld) [Mass/Vol] 14.6 g/dL 13.0-16.5 [facility] Work Phone: Blood lymphocytes/100 leukoc yteson 01-08-2022 Lymphocytes/100 WBC (Bld) 13.4 % 19-41 [facility] Work Phone: Blood monocytes/100 leukocyt eson 01-08-2022 Monocytes/100 WBC (Bld) 4.4 % 0-10 [facility] Work Phone: Blood platelet mean volumeon 01-08-2022 Platelet mean volume (Bld) [Entitic vol] 9.2 fL 6.2-12.0 [facility] Work Phone: [phone] Determination of erythrocyte mean corpuscular volume (MCV)on 01-08-2022 MCV (RBC) [Entitic vol] 81.0 fL 80-94 [facility] Work Phone: [phone] Hematocrit Auto (Bld) [Volum e fraction]on 01-08-2022 Hematocrit (Bld) [Volume fraction] 41.0 % 40-54 [facility] Work Phone: [phone] Laboratory - Chemistry and C hemistry - challengeon 01-08-2022 ALP [Catalytic activity/Vol] 79 U/L 45-117 [facility] Work Phone: [phone] ALT [Catalytic activity/Vol] 16 U/L 16-61 [facility] Work Phone: [phone] CO2 [Moles/Vol] 25.0 mmol/L 21.0-32.0 [facility] Work Phone: [phone] Globulin (S) [Mass/Vol] 3.6 g/dL 2.2-4.2 [facility] Work Phone: [phone] Urea nitrogen/Creatinine [Mass ratio] 16.8 mg/mg 10-20 [facility] Work Phone: Laboratory - Hematology and Cell countson 01-08-2022 Erythrocyte distribution width (RBC) [Entitic vol] 40.0 fL 35.1-43.9 [facility] Work Phone: Erythrocyte distribution width (RBC) [Ratio] 13.9 % 11.6-14.6 [facility] Work Phone: Immature granulocytes/100 WBC (Bld) 0.500 % 0.0-0.9 [facility] Work Phone: Comment on above: IG% - Immature Granu locytes (promyelocytes, myelocytes and metamyelocytes) > 1% indicates that a LEFT SHIFT is Present. MCH (RBC) [Entitic mass] 28.9 pg 27.0-32.0 [facility] Work Phone: Nucleated RBC/100 WBC (Bld) [Ratio] 0 % 0-5 [facility] Work Phone: MCHC Auto (RBC) [Mass/Vol]on 01-08-2022 MCHC (RBC) [Mass/Vol] 35.6 g/dL 32-36 [facility] Work Phone: No Panel Informationon 01-08 Estimated Creatinine Clearance Calc 96.79 ml/min [facility] Work Phone: Estimated GFR (MDRD) Amer 96 mL/min >60 [facility] Work Phone: Comment on above: GFR Calc Estimated GFR (MDRD) Non-Af Amer 80 mL/min >60 [facility] Work Phone: Comment on above: Non- GFR Calc Platelets bldon 01-08-2022 Platelets (Bld) [#/Vol] 228 10*3/uL 150-450 [facility] Work Phone: Serum or plasma albumin yayo urement (mass/volume)on 01-08-2022 Albumin [Mass/Vol] 4.0 g/dL 3.2-5.0 [facility] Work Phone: Serum or plasma albumin/glob ulin mass ratioon 01-08-2022 Albumin/Globulin [Mass ratio] 1.1 {ratio} 0.9-2.4 [facility] Work Phone: Serum or plasma calcium yayo urement (mass/volume)on 01-08-2022 Calcium [Mass/Vol] 9.3 mg/dL 8.5-10.1 [facility] Work Phone: Serum or plasma creatinine m easurement (mass/volume)on 01-08-2022 Creatinine [Mass/Vol] 1.01 mg/dL 0.70-1.30 [facility] Work Phone: Comment on above: The validity of the calculated GFR & GFRAA in patients over 70 years has not been determined. Clinical correlation is essential. Serum or plasma urea nitroge n measurement (mass/volume)on 01-08-2022 Urea nitrogen [Mass/Vol] 17 mg/dL 7-18 [facility] Work Phone: Thin prep Papanicolaou smear with manual screeningon 01-08-2022 Thin prep Papanicolaou smear with manual screening 8 U/L 15-37 [facility] Work Phone: Thin prep Papanicolaou smear with manual screening 6 5-15 [facility] Work Phone: Absolute lymphocyte counton 01-07-2022 Lymphocytes Auto (Unsp spec) [#/Vol] 2.13 10*3/uL 0.83-4.51 [facility] Work Phone: Basophil percentageon 2021 Basophils/100 WBC (Bld) 0.3 % 0-1 [facility] Work Phone: Bilirubin [Mass/Vol] 0.60 mg/dL 0.20-1.00 [facility] Work Phone: Comment on above: For patients on eltr ombopag therapy, use of [employer] [place] TBIL is not recommended. Chloride [Moles/Vol] 107 mmol/L 98-107 [facility] Work Phone: Eosinophils/100 WBC (Bld) 2.7 % 0-5 [facility] Work Phone: Glucose [Mass/Vol] 150 mg/dL 74-106 [facility] Work Phone: Comment on above: Fasting Glucose resu lt greater than or equal to 126 mg/dL suggests DIABETES MELLITUS per A.D.A. criteria. Neutrophils (Bld) [#/Vol] 3.5 10*3/uL 2.0-7.7 [facility] Work Phone: Neutrophils/100 WBC (Bld) 55.6 % 47-70 [facility] Work Phone: Potassium [Moles/Vol] 3.4 mmol/L 3.5-5.1 [facility] Work Phone: Protein [Mass/Vol] 6.3 g/dL 6.4-8.2 [facility] Work Phone: Sodium [Moles/Vol] 139 mmol/L 136-145 [facility] Work Phone: WBC (Bld) [#/Vol] 6.3 10*3/uL 4.4-11.0 [facility] Work Phone: Blood erythrocytes count (nu mber/volume)on 01-07-2022 RBC (Bld) [#/Vol] 4.65 10*6/uL 4.6-6.2 [facility] Work Phone: Blood hemoglobin measurement (mass/volume)on 01-07-2022 Hemoglobin (Bld) [Mass/Vol] 13.5 g/dL 13.0-16.5 [facility] Work Phone: Blood lymphocytes/100 leukoc yteson 01-07-2022 Lymphocytes/100 WBC (Bld) 33.9 % 19-41 [facility] Work Phone: Blood monocytes/100 leukocyt eson 01-07-2022 Monocytes/100 WBC (Bld) 7.2 % 0-10 [facility] Work Phone: Blood platelet mean volumeon 01-07-2022 Platelet mean volume (Bld) [Entitic vol] 9.4 fL 6.2-12.0 [facility] Work Phone: Determination of erythrocyte mean corpuscular volume (MCV)on 01-07-2022 MCV (RBC) [Entitic vol] 82.2 fL 80-94 [facility] Work Phone: Glucose Glucometer (BldC) [M ass/Vol]on 01-07-2022 Glucose [Mass/Vol] 161 mg/dL 74-106 [facility] Work Phone: Comment on above: MANAGEMENT OF PATIEN T CARE PER NURSING PROTOCOL Hematocrit Auto (Bld) [Volum e fraction]on 01-07-2022 Hematocrit (Bld) [Volume fraction] 38.2 % 40-54 [facility] Work Phone: Laboratory - Chemistry and C hemistry - challengeon 01-07-2022 ALP [Catalytic activity/Vol] 64 U/L 45-117 [facility] Work Phone: ALT [Catalytic activity/Vol] 11 U/L 16-61 [facility] Work Phone: [phone] CO2 [Moles/Vol] 27.0 mmol/L 21.0-32.0 [facility] Work Phone: Globulin (S) [Mass/Vol] 3.1 g/dL 2.2-4.2 [facility] Work Phone: [phone] Urea nitrogen/Creatinine [Mass ratio] 12.9 mg/mg 10-20 [facility] Work Phone: [phone] Laboratory - Hematology and Cell countson 01-07-2022 Erythrocyte distribution width (RBC) [Entitic vol] 40.8 fL 35.1-43.9 [facility] Work Phone: [phone] Erythrocyte distribution width (RBC) [Ratio] 13.9 % 11.6-14.6 [facility] Work Phone: [phone] Immature granulocytes/100 WBC (Bld) 0.300 % 0.0-0.9 [facility] Work Phone: Comment on above: IG% - Immature Granu locytes (promyelocytes, myelocytes and metamyelocytes) > 1% indicates that a LEFT SHIFT is Present. MCH (RBC) [Entitic mass] 29.0 pg 27.0-32.0 [facility] Work Phone: Nucleated RBC/100 WBC (Bld) [Ratio] 0 % 0-5 [facility] Work Phone: MCHC Auto (RBC) [Mass/Vol]on 01-07-2022 MCHC (RBC) [Mass/Vol] 35.3 g/dL 32-36 [facility] Work Phone: No Panel Informationon 01-07 Estimated Creatinine Clearance Calc 139.66 ml/min [facility] Work Phone: Estimated GFR (MDRD) Amer 148 mL/min >60 [facility] Work Phone: Comment on above: GFR Calc Estimated GFR (MDRD) Non-Af Amer 123 mL/min >60 [facility] Work Phone: Comment on above: Non- GFR Calc Platelets bldon 01-07-2022 Platelets (Bld) [#/Vol] 208 10*3/uL 150-450 [facility] Work Phone: Serum or plasma albumin yayo urement (mass/volume)on 01-07-2022 Albumin [Mass/Vol] 3.2 g/dL 3.2-5.0 [facility] Work Phone: Serum or plasma albumin/glob ulin mass ratioon 01-07-2022 Albumin/Globulin [Mass ratio] 1.0 {ratio} 0.9-2.4 [facility] Work Phone: Serum or plasma calcium yayo urement (mass/volume)on 01-07-2022 Calcium [Mass/Vol] 8.4 mg/dL 8.5-10.1 [facility] Work Phone: Serum or plasma creatinine m easurement (mass/volume)on 01-07-2022 Creatinine [Mass/Vol] 0.70 mg/dL 0.70-1.30 [facility] Work Phone: Comment on above: The validity of the calculated GFR & GFRAA in patients over 70 years has not been determined. Clinical correlation is essential. Serum or plasma urea nitroge n measurement (mass/volume)on 01-07-2022 Urea nitrogen [Mass/Vol] 9 mg/dL 7-18 [facility] Work Phone: Thin prep Papanicolaou smear with manual screeningon 01-07-2022 Thin prep Papanicolaou smear with manual screening 8 U/L 15-37 [facility] Work Phone: Thin prep Papanicolaou smear with manual screening 5 5-15 [facility] Work Phone: Erythrocyte sedimentation ra mau 01-05-2022 ESR (Bld) [Velocity] 4 mm/h 0-20 [facility] Work Phone: Serum or plasma C reactive p rotein measurement (mass/volume)on 01-05-2022 CRP [Mass/Vol] mg/L 0.0-3.0 [facility] Work Phone: Comment on above: C-Reactive Protein ( CRP) provides useful information for thediagnosis, therapy and monitoring of inflammatory processesand associated diseases. For the evaluation of Relative Riskfor Cardiovascular Disease, a High Sensitivity CRP (HSCRP)should be ordered. Thin prep Papanicolaou smear with manual screeningon 01-05-2022 Thin prep Papanicolaou smear with manual screening 192 U/L 87-241 [facility] Work Phone: Basophil percentageon 2021 Basophil percentage 0 SEEN /hpf 0-5 [facility] Work Phone: Lactate [Moles/Vol] 1.1 mmol/L 0.4-2.0 [facility] Work Phone: Bilirubin Test strip Ql (U)o n 01-04-2022 Bilirubin Ql (U) Negative Negative [facility] Work Phone: Ketones Test strip Ql (U)on 01-04-2022 Ketones Ql (U) 50 mg/dl Negative [facility] Work Phone: Laboratory - Chemistry and C hemistry - challengeon 01-04-2022 Lipase [Catalytic activity/Vol] 38 U/L 73-393 [facility] Work Phone: Mucus LM Ql (Urine sed)on Mucus Ql (Urine sed) 0 SEEN /hpf [facility] Work Phone: Nitrite Test strip Ql (U)on 01-04-2022 Nitrite Ql (U) Negative Negative [facility] Work Phone: Protein Test strip Ql (U)on 01-04-2022 Protein Ql (U) 15 mg/dl Negative [facility] Work Phone: Squamous epithelial cells de tection in urine sediment by light microscopyon 01-04-2022 Epithelial cells.squamous LM Ql (Urine sed) 0 SEEN /hpf 0-5 [facility] Work Phone: Urine blood detectionon RBC Ql (U) Negative Negative [facility] Work Phone: RBC Ql (U) 0 SEEN /hpf 0-5 [facility] Work Phone: Urine clarityon 01-04-2022 Clarity (U) Clear Clear [facility] Work Phone: Urine color determinationon 01-04-2022 Color (U) Yellow Yellow [facility] Work Phone: Urine glucose detectionon Glucose Ql (U) 1000 mg/dl Normal [facility] Work Phone: Urine leukocyte esterase det ection by dipstickon 01-04-2022 Leukocyte esterase Test strip Ql (U) Negative Negative [facility] Work Phone: Urine pHon 01-04-2022 pH (U) 5.0 [pH] 5.0 - 8.0 [facility] Work Phone: Urine sediment bacteria coun t by microscopy (number/high power field)on 01-04-2022 Bacteria LM.HPF (Urine sed) [#/Area] 0 /[HPF] None Seen [facility] Work Phone: Urine specific gravity measu rementon 01-04-2022 Specific gravity (U) [Rel density] 1.010 1.002-1.030 [facility] Work Phone: Urobilinogen Auto test strip Ql (U)on 01-04-2022 Urobilinogen Ql (U) Normal mg/dl Normal [facility] Work [facility]: Basophil percentageon 2021 Basophil percentage TNP [facility] Work Phone: Comment on above: Test not performedhe molysis present redraw for k if indicatedPrevious reported result: TNP mmol/LEdited by: VEL on 11/12/21:2008 Chloride [Moles/Vol] 102 mmol/L 98-107 [facility] Work Phone: Glucose [Mass/Vol] 326 mg/dL 74-106 [facility] Work Phone: Comment on above: Glucose result great er than or equal to 200 mg/dLsuggests DIABETES MELLITUS per A.D.A. criteria. Sodium [Moles/Vol] 135 mmol/L 136-145 [facility] Work Phone: Glucose Glucometer (BldC) [M ass/Vol]on 11-12-2021 Glucose [Mass/Vol] 324 mg/dL 70-110 [facility] Work Phone: Comment on above: MANAGEMENT OF PATIEN T CARE PER NURSING PROTOCOL Laboratory - Chemistry and C hemistry - challengeon 11-12-2021 CO2 [Moles/Vol] 26.0 mmol/L 21.0-32.0 [facility] Work Phone: Urea nitrogen/Creatinine [Mass ratio] 13.4 mg/mg 10-20 [facility] Work Phone: No Panel Informationon 11-12 Estimated Creatinine Clearance Calc 119.22 ml/min [facility] Work Phone: Estimated GFR (MDRD) Amer 122 mL/min >60 [facility] Work Phone: Comment on above: GFR Calc Estimated GFR (MDRD) Non-Af Amer 101 mL/min >60 [facility] Work Phone: Comment on above: Non- GFR Calc Serum or plasma calcium yayo urement (mass/volume)on 11-12-2021 Calcium [Mass/Vol] 8.6 mg/dL 8.5-10.1 [facility] Work Phone: Serum or plasma creatinine m easurement (mass/volume)on 11-12-2021 Creatinine [Mass/Vol] 0.82 mg/dL 0.70-1.30 [facility] Work Phone: Comment on above: The validity of the calculated GFR & GFRAA in patients over 70 years has not been determined. Clinical correlation is essential. Serum or plasma urea nitroge n measurement (mass/volume)on 11-12-2021 Urea nitrogen [Mass/Vol] 11 mg/dL 7-18 [facility] Work Phone: Thin prep Papanicolaou smear with manual screeningon 11-12-2021 Thin prep Papanicolaou smear with manual screening 7 5-15 [facility] Work Phone: Glucose,Bedsideon 10-07-2019 Glucose [Mass/Vol] 240 mg/dL High 70-100 [employer] Comment on above: Result Comment: Test performed by glucose meter. Results may be 10%-15% lower than serum/plasma values. (CLIA ID [id number]) Performed By: #### B MP3, HEMDF #### [facility] [address] [place] [phone] POCT Glucoseon 10-07-2019 Glucose [Mass/Vol] 240 mg/dL High 70 - 100 mg/dL [employer] [place] Comment on above: Test performed by gl ucose meter. Results may be 10%-15% lower than serum/plasma values. (CLIA ID [id number]) Interpretation and review of laboratory results Abnormal [place], [place] Test Performed by [facility], [address] [place] [address] [place], [place] Basic Metabolic Panelon 12-0 Anion gap [Moles/Vol] 7 Normal [facility] Comment on above: Performed By: #### H EMDF, BMP3M, MG3 #### [address] Calcium [Mass/Vol] 9.0 mg/dL Normal 8.4-10.4 [facility] Comment on above: Performed By: #### H EMDF, BMP3M, MG3 #### [address] CO2 [Moles/Vol] 28 mmol/L Normal 22-30 [facility] Comment on above: Performed By: #### H EMDF, BMP3M, MG3 #### [address] Creatinine [Mass/Vol] 0.73 mg/dL Normal 0.52-1.25 [facility] Comment on above: Performed By: #### H EMDF, BMP3M, MG3 #### [address] GFR/1.73 sq M predicted among blacks MDRD (S/P/Bld) [Vol rate/Area] mL/min/{1.73_m2} Normal >60 [facility] Comment on above: Performed By: #### H EMDF, BMP3M, MG3 #### [address] [address] [place], [place] GFR/1.73 sq M predicted among non-blacks MDRD (S/P/Bld) [Vol rate/Area] mL/min/{1.73_m2} Normal >60 [facility] Comment on above: Result Comment: Sour ce- MDRD equation with creatinine calibration to IDMS(NKDEP) eGFR not recommended for drug dose adjustment Performed By: #### H EMDF, BMP3M, MG3 #### [address] [address] [place], [place] Glucose [Mass/Vol] 194 mg/dL High 70-100 [facility] Comment on above: Performed By: #### H EMDLiz, BMP3M, MG3 #### [facility] [address] [place], [place] Urea nitrogen [Mass/Vol] 10 mg/dL Normal 7-20 [facility] Comment on above: Performed By: #### H EMDF, BMP3M, MG3 #### [facility] [address] [place], [place] Chloride [Moles/Vol] 105 mmol/L Normal 98-107 [facility] Comment on above: Performed By: #### H EMDLiz BMP3M, MG3 #### [address] [address] [address] [place], [place] Potassium [Moles/Vol] 3.4 mmol/L Low 3.5-5.1 [facility] Comment on above: Performed By: #### H EMDLiz, BMP3M, MG3 #### [address] [address] [address] [place], [place] Sodium [Moles/Vol] 140 mmol/L Normal 135-145 [facility] Comment on above: Performed By: #### H EMDLiz, BMP3M, MG3 #### [address] [address] [address] [place], [place] Basic Metabolic Panel w/ Ref pietro to MGon 10-06-2019 Anion gap [Moles/Vol] 7 mmol/L [place], [place] Calcium [Mass/Vol] 9.0 mg/dL 8.4 - 10. 4 mg/dL [place] Chloride [Moles/Vol] 105 mmol/L 98 - 10 7 mmol/L [place] CO2 [Moles/Vol] 28 mmol/L 22 - 30 mmol/L [place] Creatinine [Mass/Vol] 0.73 mg/dL 0.52 - 1.25 mg/dL [place] EGFR IF NonAfrican [place]otho >60.0 >60 mL/min [place] Comment on above: Source- MDRD equatio n with creatinine calibration to IDMS(NKDEP) eGFR not recommended for drug dose adjustment GFR/1.73 sq M predicted among blacks MDRD (S/P/Bld) [Vol rate/Area] mL/min/{1.73_m2} >60 mL/min [place] Glucose [Mass/Vol] 194 mg/dL High 70 - 100 mg/dL [place] Potassium [Moles/Vol] 3.4 mmol/L Low 3.5 - 5.1 mmol/L [place] Sodium [Moles/Vol] 140 mmol/L 135 - 145 mmol/L [place] Urea nitrogen [Mass/Vol] 10 mg/dL 7 - 20 mg/dL [place] CBC auto differentialon 12-0 Absolute Baso # 0.1 10*3/uL 0 - 0.2 10*3/uL [place] Absolute Neut # 4.4 10*3/uL 1.8 - 7 10*3/uL [place] Basophils/100 WBC (Bld) 0.8 % 0 - 2 % [place] Eosinophils (Bld) [#/Vol] 0.2 10*3/uL 0 - 0.5 10*3/uL [place] Eosinophils/100 WBC (Bld) 2.8 % 1 - 6 % [place] Erythrocyte distribution width (RBC) [Ratio] 13.7 % 11.5 - 14.5 % [place] Granulocytes/100 WBC (Bld) 60.0 % 40 - 80 % [place] Hematocrit (Bld) [Volume fraction] 44.1 % 40 - 52 % [place] Hemoglobin (Bld) [Mass/Vol] 15.5 g/dL 13 - 18 g/dL [place] Lymphocytes (Bld) [#/Vol] 2.3 10*3/uL 1 - 4.3 10*3/uL [place] Lymphocytes/100 WBC (Bld) 30.7 % 20 - 40 % [place] MCH (RBC) [Entitic mass] 29.2 pg 26 - 34 pg [place] MCHC (RBC) [Mass/Vol] 35.2 % 32 - 36 % [place] MCV (RBC) [Entitic vol] 82.9 fL 80 - 98 fL [place], [place] Monocytes (Bld) [#/Vol] 0.4 10*3/uL 0 - 0.8 10*3/uL [place] Monocytes/100 WBC (Bld) 5.7 % 2 - 10 % [place] Platelet mean volume (Bld) [Entitic vol] 7.5 fL 7.4 - 10.4 fL [place] Platelets (Bld) [#/Vol] 196 10*3/uL 140 - 440 10*3/uL [place] RBC (Bld) [#/Vol] 5.32 10*6/uL 4.4 - 5.9 10*6/uL [place] WBC (Bld) [#/Vol] 7.4 10*3/uL 3.6 - 10.7 10*3/uL [place] Test Performed by [facility], [address] [place] [address] [place] Glucose,Bedsideon 10-06-2019 Glucose [Mass/Vol] 257 mg/dL High 70-100 [facility] Comment on above: Result Comment: Test performed by glucose meter. Results may be 10%-15% lower than serum/plasma values. (CLIA ID [id number]) Performed By: #### B MP3, HEMDF #### [address] [address] [place] [address] Glucose [Mass/Vol] 288 mg/dL High 70-100 [facility] Comment on above: Result Comment: Test performed by glucose meter. Results may be 10%-15% lower than serum/plasma values. (CLIA ID [id number]) Performed By: #### B MP3, HEMDF #### [facility] [address] [place] [address] Glucose [Mass/Vol] 198 mg/dL High 70-100 [facility] Comment on above: Result Comment: Test performed by glucose meter. Results may be 10%-15% lower than serum/plasma values. (CLIA ID [id number]) Performed By: #### B GLU #### [address] [address] [address] [place], [place] Glucose [Mass/Vol] 226 mg/dL High 70-100 [facility] Comment on above: Result Comment: Test performed by glucose meter. Results may be 10%-15% lower than serum/plasma values. (CLIA ID [id number]) Performed By: #### B GLU #### [address] [address] [address] [place], [place] Glucose [Mass/Vol] 207 mg/dL High 70-100 [facility] Comment on above: Result Comment: Test performed by glucose meter. Results may be 10%-15% lower than serum/plasma values. (CLIA ID [id number]) Performed By: #### B GLU #### [address] [address] [address] [place], [place] Glucose [Mass/Vol] 200 mg/dL High 70-100 [facility] Comment on above: Result Comment: Test performed by glucose meter. Results may be 10%-15% lower than serum/plasma values. (CLIA ID [id number]) Performed By: #### B GLU #### [address] [address] [address] [place], [place] Hemogram w/ Autodiffon 10-06 Abs Baso Cnt 0.1 10*3/uL Normal 0.0-0.2 [facility] Comment on above: Performed By: #### H EMDF, BMP3M, MG3 #### [address] [place], [place] Abs Neutrophile Cnt 4.4 10*3/uL Normal 1.8-7.0 [facility] Comment on above: Performed By: #### H EMDF, BMP3M, MG3 #### [address] Basophils/100 WBC (Bld) 0.8 % Normal 0.0-2.0 [facility] Comment on above: Performed By: #### H EMDF, BMP3M, MG3 #### [address] Eosinophils (Bld) [#/Vol] 0.2 10*3/uL Normal 0.0-0.5 [facility] Comment on above: Performed By: #### H EMDF, BMP3M, MG3 #### [address] Eosinophils/100 WBC (Bld) 2.8 % Normal 1.0-6.0 [facility] Comment on above: Performed By: #### H EMDF, BMP3M, MG3 #### [address] Erythrocyte distribution width (RBC) [Ratio] 13.7 % Normal 11.5-14.5 [facility] Comment on above: Performed By: #### H EMDF, BMP3M, MG3 #### [address] Granulocytes/100 WBC (Bld) 60.0 % Normal 40.0-80.0 [facility] Comment on above: Performed By: #### H EMDF, BMP3M, MG3 #### [address] Hematocrit (Bld) [Volume fraction] 44.1 % Normal 40.0-52.0 [facility] Comment on above: Performed By: #### H EMDF, BMP3M, MG3 #### [address] Hemoglobin (Bld) [Mass/Vol] 15.5 g/dL Normal 13.0-18.0 [facility] Comment on above: Performed By: #### H EMDF, BMP3M, MG3 #### [address] Lymphocytes (Bld) [#/Vol] 2.3 10*3/uL Normal 1.0-4.3 [facility] Comment on above: Performed By: #### H EMDF, BMP3M, MG3 #### [address] Lymphocytes/100 WBC (Bld) 30.7 % Normal 20.0-40.0 [facility] Comment on above: Performed By: #### H EMDF, BMP3M, MG3 #### [address] MCH (RBC) [Entitic mass] 29.2 pg Normal 26.0-34.0 [facility] Comment on above: Performed By: #### H EMDF, BMP3M, MG3 #### [address] MCHC (RBC) [Mass/Vol] 35.2 % Normal 32.0-36.0 [facility] Comment on above: Performed By: #### H EMDF, BMP3M, MG3 #### [address] MCV (RBC) [Entitic vol] 82.9 fL Normal 80.0-98.0 [facility] Comment on above: Performed By: #### H EMDF, BMP3M, MG3 #### [address] Monocytes (Bld) [#/Vol] 0.4 10*3/uL Normal 0.0-0.8 [facility] Comment on above: Performed By: #### H EMDF, BMP3M, MG3 #### [address] Monocytes/100 WBC (Bld) 5.7 % Normal 2.0-10.0 [facility] Comment on above: Performed By: #### H EMDF, BMP3M, MG3 #### [address] Platelet mean volume (Bld) [Entitic vol] 7.5 fL Normal 7.4-10.4 [facility] Comment on above: Performed By: #### H EMDF, BMP3M, MG3 #### [address] Platelets (Bld) [#/Vol] 196 10*3/uL Normal 140-440 [facility] Comment on above: Performed By: #### H EMDF, BMP3M, MG3 #### [facility] [address] [place] [address] RBC (Bld) [#/Vol] 5.32 10*6/uL Normal 4.40-5.90 [facility] Comment on above: Performed By: #### H EMDF, BMP3M, MG3 #### [facility] [address] [place], [place] WBC (Bld) [#/Vol] 7.4 10*3/uL Normal 3.6-10.7 [facility] Comment on above: Performed By: #### H EMDF, BMP3M, MG3 #### [facility] [address] [place] [address] Magnesiumon 10-06-2019 Magnesium [Mass/Vol] 1.5 mg/dL Low 1.6-2.3 [facility] Comment on above: Performed By: #### H EMDF, BMP3M, MG3 #### [facility] [address] [place] [address] Magnesium [Mass/Vol] 1.5 mg/dL Low 1.6 - 2 .3 mg/dL [place] Otheron 10-06-2019 Interpretation and review of laboratory results Abnormal [place] Test Performed by [facility], [facility] [place] [address] [place] POCT Glucoseon 10-06-2019 Glucose [Mass/Vol] 257 mg/dL High 70 - 100 mg/dL [place] Comment on above: Test performed by ucose meter. Results may be 10%-15% lower than serum/plasma values. (CLIA ID [id number]) Interpretation and review of laboratory results Abnormal [place] Test Performed by [facility], [facility] [place] [address] [place] Glucose [Mass/Vol] 288 mg/dL High 70 - 100 mg/dL [facility] [place] Comment on above: Test performed by gl ucose meter. Results may be 10%-15% lower than serum/plasma values. (CLIA ID [id number]) Interpretation and review of laboratory results Abnormal [facility] [place] Test Performed by [facility], [address] [place] [address] [facility] [place] Glucose [Mass/Vol] 198 mg/dL High 70 - 100 mg/dL [facility] [place] Comment on above: Test performed by gl ucose meter. Results may be 10%-15% lower than serum/plasma values. (CLIA ID [id number]) Interpretation and review of laboratory results Abnormal [facility] [place] Test Performed by [facility], [address] [address] [facility] [place] Glucose [Mass/Vol] 226 mg/dL High 70 - 100 mg/dL [facility] [place] Comment on above: Test performed by gl ucose meter. Results may be 10%-15% lower than serum/plasma values. (CLIA ID [id number]) Interpretation and review of laboratory results Abnormal [facility] [place] Test Performed by [facility], [address] [address] [facility] [place] Glucose [Mass/Vol] 207 mg/dL High 70 - 100 mg/dL [facility] [place] Comment on above: Test performed by gl ucose meter. Results may be 10%-15% lower than serum/plasma values. (CLIA ID [id number]) Interpretation and review of laboratory results Abnormal [facility] [place] Test Performed by [facility], [address] [place] [address] [facility] [place] Glucose [Mass/Vol] 200 mg/dL High 70 - 100 mg/dL [facility] [place] Comment on above: Test performed by gl ucose meter. Results may be 10%-15% lower than serum/plasma values. (CLIA ID [id number]) Interpretation and review of laboratory results Abnormal [facility] [place] Test Performed by [facility], [address] [place] [address] [facility] [place] Surgical Pathologyon 019 Surgical Pathology [id number] [facility] PATHOLOGY AND LABORATORY MEDICINE [address] [facility] [place] [address] FINAL SURGICAL PATHOLOGY REPORT ___ NAME: JERALD YODER : 1960 59 Y M LIZZ NO.: [id number] LOCATION: [address] [place] [address] PROCEDURE 10/06/2019 DATE: SURGEON: BECCA RAMIREZ MD [...] characteristics determined by the clinical laboratories of [facility]. They have not been cleared by the [...] negativity on decalcified specimens. Professional Performing Location: [place] [address]. DEPARTMENT OF PATHOLOGY AND LABORATORY MEDICINE [place], [place] [address] Normal [facility] Basic Metabolic Panelon 12-0 Anion gap [Moles/Vol] 9 Normal [facility] Comment on above: Performed By: #### B MP3, HEMDF #### [address] [address] Calcium [Mass/Vol] 9.3 mg/dL Normal 8.4-10.4 [facility] Comment on above: Performed By: #### Kathi MP3, HEMDF #### [address] [address] CO2 [Moles/Vol] 24 mmol/L Normal 22-30 [facility] Comment on above: Performed By: #### B MP3, HEMDF #### [address] [address] Glucose [Mass/Vol] 317 mg/dL High 70-100 [facility] Comment on above: Performed By: #### B MP3, HEMDF #### [address] [address] Urea nitrogen [Mass/Vol] 11 mg/dL Normal 7-20 [facility] Comment on above: Performed By: #### B MP3, HEMDF #### [address] [address] [place] [address] Creatinine [Mass/Vol] 0.71 mg/dL Normal 0.52-1.25 [facility] Comment on above: Performed By: #### B MP3, HEMDF #### [facility] [address] [place] [address] GFR/1.73 sq M predicted among blacks MDRD (S/P/Bld) [Vol rate/Area] mL/min/{1.73_m2} Normal >60 [facility] Comment on above: Performed By: #### B MP3, HEMDF #### [address] [address] [place] [address] GFR/1.73 sq M predicted among non-blacks MDRD (S/P/Bld) [Vol rate/Area] mL/min/{1.73_m2} Normal >60 [facility] Comment on above: Result Comment: Sour ce- MDRD equation with creatinine calibration to IDMS(NKDEP) eGFR not recommended for drug dose adjustment Performed By: #### B MP3, HEMDF #### [address] [address] [place] [address] Chloride [Moles/Vol] 104 mmol/L Normal 98-107 [facility] Comment on above: Performed By: #### B MP3, HEMDF #### [address] [address] [place] [address] Potassium [Moles/Vol] 4.1 mmol/L Normal 3.5-5.1 [facility] Comment on above: Performed By: #### B MP3, HEMDF #### [address] [address] [place] [address] Sodium [Moles/Vol] 137 mmol/L Normal 135-145 [facility] Comment on above: Performed By: #### B MP3, HEMDF #### [address] [address] [place] [address] Anion gap [Moles/Vol] 9 mmol/L [facility] [place] Calcium [Mass/Vol] 9.3 mg/dL 8.4 - 10. 4 mg/dL [place] Chloride [Moles/Vol] 104 mmol/L 98 - 10 7 mmol/L [place] CO2 [Moles/Vol] 24 mmol/L 22 - 30 mmol/L [place] Creatinine [Mass/Vol] 0.71 mg/dL 0.52 - 1.25 mg/dL [place] EGFR IF NonAfrican [place] >60.0 >60 mL/min [place] Comment on above: Source- MDRD equatio n with creatinine calibration to IDMS(NKDEP) eGFR not recommended for drug dose adjustment GFR/1.73 sq M predicted among blacks MDRD (S/P/Bld) [Vol rate/Area] mL/min/{1.73_m2} >60 mL/min [place] Glucose [Mass/Vol] 317 mg/dL High 70 - 100 mg/dL [place] Interpretation and review of laboratory results Abnormal [place] Potassium [Moles/Vol] 4.1 mmol/L 3.5 - 5.1 mmol/L [place] Sodium [Moles/Vol] 137 mmol/L 135 - 145 mmol/L [place] Urea nitrogen [Mass/Vol] 11 mg/dL 7 - 20 mg/dL [place] Test Performed by [facility], [address] [place] [address] [place] CBC Auto Differentialon 12-0 Absolute Baso # 0.0 10*3/uL 0 - 0.2 10*3/uL [place] Absolute Neut # 3.9 10*3/uL 1.8 - 7 10*3/uL [place] Basophils/100 WBC (Bld) 0.7 % 0 - 2 % [place] Eosinophils (Bld) [#/Vol] 0.2 10*3/uL 0 - 0.5 10*3/uL [place] Eosinophils/100 WBC (Bld) 2.6 % 1 - 6 % [place] Erythrocyte distribution width (RBC) [Ratio] 13.5 % 11.5 - 14.5 % [place] Granulocytes/100 WBC (Bld) 62.2 % 40 - 80 % [place] Hematocrit (Bld) [Volume fraction] 42.8 % 40 - 52 % [place] Hemoglobin (Bld) [Mass/Vol] 15.0 g/dL 13 - 18 g/dL [place] Lymphocytes (Bld) [#/Vol] 1.7 10*3/uL 1 - 4.3 10*3/uL [place] Lymphocytes/100 WBC (Bld) 27.4 % 20 - 40 % [place] MCH (RBC) [Entitic mass] 28.8 pg 26 - 34 pg [place] MCHC (RBC) [Mass/Vol] 35.1 % 32 - 36 % [place] MCV (RBC) [Entitic vol] 82.3 fL 80 - 98 fL [place] Monocytes (Bld) [#/Vol] 0.4 10*3/uL 0 - 0.8 10*3/uL [place] Monocytes/100 WBC (Bld) 7.1 % 2 - 10 % [place] Platelet mean volume (Bld) [Entitic vol] 7.4 fL 7.4 - 10.4 fL [place] Platelets (Bld) [#/Vol] 162 10*3/uL 140 - 440 10*3/uL [place] RBC (Bld) [#/Vol] 5.20 10*6/uL 4.4 - 5.9 10*6/uL [place] WBC (Bld) [#/Vol] 6.2 10*3/uL 3.6 - 10.7 10*3/uL [place] Test Performed by [facility], [address] [place] [id number] [place] [address] Glucose,Bedsideon 10-05-2019 Glucose [Mass/Vol] 214 mg/dL High 70-100 [facility] Comment on above: Result Comment: Test performed by glucose meter. Results may be 10%-15% lower than serum/plasma values. (CLIA ID [id number]) Performed By: #### B GLU #### [address] [address] [address] [place], [place] Hemogram w/ Autodiffon 10-05 Abs Baso Cnt 0.0 10*3/uL Normal 0.0-0.2 [facility] Comment on above: Performed By: #### B MP3, HEMDF #### [address] [address] [address] [place] Abs Neutrophile Cnt 3.9 10*3/uL Normal 1.8-7.0 [facility] Comment on above: Performed By: #### B MP3, HEMDF #### [address] [address] [address] [place] Basophils/100 WBC (Bld) 0.7 % Normal 0.0-2.0 [facility] Comment on above: Performed By: #### B MP3, HEMDF #### [address] [address] [address] [place] Eosinophils (Bld) [#/Vol] 0.2 10*3/uL Normal 0.0-0.5 [facility] Comment on above: Performed By: #### B MP3, HEMDF #### [address] [address] [address] [place] Eosinophils/100 WBC (Bld) 2.6 % Normal 1.0-6.0 [facility] Comment on above: Performed By: #### B MP3, HEMDF #### [address] [address] [address] [place] Erythrocyte distribution width (RBC) [Ratio] 13.5 % Normal 11.5-14.5 [facility] Comment on above: Performed By: #### B MP3, HEMDF #### [address] [place] Granulocytes/100 WBC (Bld) 62.2 % Normal 40.0-80.0 [facility] Comment on above: Performed By: #### B MP3, HEMDF #### [address] [address] [address] [place] Hematocrit (Bld) [Volume fraction] 42.8 % Normal 40.0-52.0 [facility] Comment on above: Performed By: #### B MP3, HEMDF #### [address] [address] [place] Hemoglobin (Bld) [Mass/Vol] 15.0 g/dL Normal 13.0-18.0 [facility] Comment on above: Performed By: #### B MP3, HEMDF #### [address] [address] [place] Lymphocytes (Bld) [#/Vol] 1.7 10*3/uL Normal 1.0-4.3 [facility] Comment on above: Performed By: #### B MP3, HEMDF #### [address] Lymphocytes/100 WBC (Bld) 27.4 % Normal 20.0-40.0 [facility] Comment on above: Performed By: #### B MP3, HEMDF #### [address] [address] [address] [place] MCH (RBC) [Entitic mass] 28.8 pg Normal 26.0-34.0 [facility] Comment on above: Performed By: #### Kathi MP3, HEMDF #### [address] MCHC (RBC) [Mass/Vol] 35.1 % Normal 32.0-36.0 [facility] Comment on above: Performed By: #### B MP3, HEMDF #### [address] [address] [place] MCV (RBC) [Entitic vol] 82.3 fL Normal 80.0-98.0 [facility] Comment on above: Performed By: #### B MP3, HEMDF #### [address] Monocytes (Bld) [#/Vol] 0.4 10*3/uL Normal 0.0-0.8 [facility] Comment on above: Performed By: #### B MP3, HEMDF #### [facility] [address] [place] [address] Monocytes/100 WBC (Bld) 7.1 % Normal 2.0-10.0 [facility] Comment on above: Performed By: #### B MP3, HEMDF #### [facility] [address] [place] [address] Platelet mean volume (Bld) [Entitic vol] 7.4 fL Normal 7.4-10.4 [facility] Comment on above: Performed By: #### B MP3, HEMDF #### [address] [place] [address] Platelets (Bld) [#/Vol] 162 10*3/uL Normal 140-440 [facility] Comment on above: Performed By: #### B MP3, HEMDF #### [address] [address] [place] [address] RBC (Bld) [#/Vol] 5.20 10*6/uL Normal 4.40-5.90 [facility] Comment on above: Performed By: #### B MP3, HEMDF #### [address] [address] [place] [address] WBC (Bld) [#/Vol] 6.2 10*3/uL Normal 3.6-10.7 [facility] Comment on above: Performed By: #### B MP3, HEMDF #### [address] [address] [place] [address] POCT Glucoseon 10-05-2019 Glucose [Mass/Vol] 214 mg/dL High 70 - 100 mg/dL [place] Comment on above: Test performed by ucose meter. Results may be 10%-15% lower than serum/plasma values. (CLIA ID [id number]) Interpretation and review of laboratory results Abnormal [place] Test Performed by [facility], [address] [place] [address] [place] Culture, urine Bacteria identified Cx Nom (U) Culture exhibits no growth. [facility] Work Phone: Laboratory - Microbiology an d Antimicrobial susceptibility Bacteria identified Cx Nom (Bld) No growth in 5 days. [facility] Work Phone: No Panel Information SARS-CoV-2 & FLU Antigen (Rapid) [facility] Work Phone: Vital Signs Date Time Vital Sign Value Performing Clinician Facility 04-21-2025 13:00-0400 Body temperature 97.1 [degF] No Primary Care Physician [facility] 04-21-2025 13:00-0400 Diastolic blood pressure 66 mm[Hg] No Primary Care Physician [facility] 04-21-2025 13:00-0400 Heart rate 64 /min No Primary Care Physician [facility] 04-21-2025 13:00-0400 Respiratory rate 14 /min No Primary Care Physician [facility] 04-21-2025 13:00-0400 SaO2% (BldA) [Mass fraction] 99 % No Primary Care Physician [facility] 04-21-2025 13:00-0400 Systolic blood pressure 141 mm[Hg] No Primary Care Physician [facility] 04-21-2025 10:51-0400 Body height 195.58 cm No Primary Care Physician [facility] 03-26-2025 21:56-0400 Body mass index (BMI) [Ratio] 25.2 kg/m2 Dr. Pedro Krishnan DO Work Phone: [facility] 03-26-2025 21:56-0400 Body weight 96.[address] Pedro Krishnan DO Work Phone: [facility] 03-26-2025 20:09-0400 Body height 195.[address] Pedro Krishnan DO Work Phone: [facility] 03-26-2025 20:09-0400 Body temperature 97.6 [degF] Dr. Pedro Krishnan DO Work Phone: [facility] 03-26-2025 20:09-0400 Diastolic blood pressure 76 mm[Hg] Dr. Pedro Krishnan DO Work Phone: [facility] 03-26-2025 20:09-0400 Heart rate 71 /min Dr. Pedro Krishnan DO Work Phone: [facility] 03-26-2025 20:09-0400 Respiratory rate 18 /min Dr. Pedro Krishnan DO Work Phone: [facility] 03-26-2025 20:09-0400 SaO2% (BldA) [Mass fraction] 99 % Dr. Pedro Krishnan DO Work Phone: [facility] 03-26-2025 20:09-0400 Systolic blood pressure 146 mm[Hg] Dr. Pedro Krishnan DO Work Phone: [facility] 02-16-2025 07:41-0400 Body temperature 98 [degF] Dr. Linden Chavez DO Work Phone: [facility] 02-16-2025 07:41-0400 Diastolic blood pressure 98 mm[Hg] Dr. Linden Chavez DO Work Phone: [facility] 02-16-2025 07:41-0400 Heart rate 77 /min Dr. Linden Chavez DO Work Phone: [facility] 02-16-2025 07:41-0400 Respiratory rate 19 /min Dr. Linden Chavez DO Work Phone: [facility] 02-16-2025 07:41-0400 SaO2% (BldA) [Mass fraction] 99 % Dr. Linden Chavez DO Work Phone: [facility] 02-16-2025 07:41-0400 Systolic blood pressure 107 mm[Hg] Dr. Linden Chavez DO Work Phone: [facility] 02-16-2025 04:01-0400 Body height 195.[address] Linden Chavez DO Work Phone: [facility] 02-16-2025 04:01-0400 Body mass index (BMI) [Ratio] 24.7 kg/m2 Dr. Linden Chavez DO Work Phone: [facility] 02-16-2025 04:01-0400 Body weight 94.[address] Linden Chavez DO Work Phone: [facility] 12-27-2024 01:46-0500 Body temperature 97.9 [degF] Dr. Linden Chavez DO Work Phone: [facility] 12-27-2024 01:46-0500 Diastolic blood pressure 80 mm[Hg] Dr. Linden Chavez DO Work Phone: [facility] 12-27-2024 01:46-0500 Heart rate 82 /min Dr. Linden Chavez DO Work Phone: [facility] 12-27-2024 01:46-0500 Respiratory rate 18 /min Dr. Linden Chavez DO Work Phone: [facility] 12-27-2024 01:46-0500 SaO2% (BldA) [Mass fraction] 95 % Dr. Linden Chavez DO Work Phone: [facility] 12-27-2024 01:46-0500 Systolic blood pressure 129 mm[Hg] Dr. Linden Chavez DO Work Phone: [facility] 12-26-2024 23:51-0500 Body mass index (BMI) [Ratio] 25.4 kg/m2 Dr. Linden Chavez DO Work Phone: [facility] 12-26-2024 23:51-0500 Body weight 97.[address] Linden Chavez DO Work Phone: [facility] 12-20-2024 20:13-0500 Body temperature 97.8 [degF] Dr. Linden Chavez DO Work Phone: [facility] 12-20-2024 20:13-0500 Diastolic blood pressure 98 mm[Hg] Dr. Linden Chavez DO Work Phone: [facility] 12-20-2024 20:13-0500 Heart rate 98 /min Dr. Linden Chavez DO Work Phone: [facility] 12-20-2024 20:13-0500 Respiratory rate 18 /min Dr. Linden Chavez DO Work Phone: [facility] 12-20-2024 20:13-0500 SaO2% (BldA) [Mass fraction] 97 % Dr. Linden Chavez DO Work Phone: [facility] 12-20-2024 20:13-0500 Systolic blood pressure 130 mm[Hg] Dr. Linden Chavez DO Work Phone: [facility] 12-14-2024 09:29-0500 Body mass index (BMI) [Ratio] 27.02 kg/m2 Ion Moomaw [employer]SEISMOLOGY TECHNICAL OFFICER Work Phone: [facility] 12-14-2024 09:29-0500 Body temperature 97.11 [degF] Ion Moomaw [employer]PERVISOR [employer].SEISMOLOGY TECHNICAL OFFICER Work Phone: [facility] 12-14-2024 09:29-0500 Body weight 98.7 kg Ion Moomaw SUPERVISOR [employer].SEISMOLOGY TECHNICAL OFFICER Work Phone: [facility] 12-14-2024 09:29-0500 Diastolic blood pressure 70 mm[Hg] Ion Moomaw SUPERVISOR [employer]SEISMOLOGY TECHNICAL OFFICER Work Phone: [facility] 12-14-2024 09:29-0500 Heart rate 77 /min Ion Moomaw SUPERVISOR [employer].SEISMOLOGY TECHNICAL OFFICER Work Phone: [facility] 12-14-2024 09:29-0500 Respiratory rate 18 /min Ion Moomaw SUPERVISOR [employer].SEISMOLOGY TECHNICAL OFFICER Work Phone: [facility] 12-14-2024 09:29-0500 SaO2% (BldA) [Mass fraction] 97 % Ion Moomaw SUPERVISOR [employer].SEISMOLOGY TECHNICAL OFFICER Work Phone: [facility] 12-14-2024 09:29-0500 Systolic blood pressure 105 mm[Hg] Ion Moomaw SUPERVISOR [employer]SEISMOLOGY TECHNICAL OFFICER Work Phone: [facility] 12-08-2024 14:52-0500 Body temperature 97.4 [degF] Dr. Linden Chavez DO Work Phone: [facility] 12-08-2024 14:52-0500 Diastolic blood pressure 102 mm[Hg] Dr. Linden Chavez DO Work Phone: [facility] 12-08-2024 14:52-0500 Heart rate 86 /min Dr. Linden Chavez DO Work Phone: [facility] 12-08-2024 14:52-0500 Respiratory rate 18 /min Dr. Linden Chavez DO Work Phone: [facility] 12-08-2024 14:52-0500 SaO2% (BldA) [Mass fraction] 95 % Dr. Linden Chavez DO Work Phone: [facility] 12-08-2024 14:52-0500 Systolic blood pressure 160 mm[Hg] Dr. Linden Chavez DO Work Phone: [facility] 12-08-2024 12:21-0500 Body mass index (BMI) [Ratio] 26.4 kg/m2 Dr. Linden Chavez DO Work Phone: [facility] 12-08-2024 12:21-0500 Body weight 101.[address] Linden Chavez DO Work Phone: [facility] 11-27-2024 16:07-0500 Body temperature 97.9 [degF] Dr. Linden Chavez DO Work Phone: [facility] 11-27-2024 16:07-0500 Diastolic blood pressure 69 mm[Hg] Dr. Linden Chavez DO Work Phone: [facility] 11-27-2024 16:07-0500 Heart rate 88 /min Dr. Linden Chavez DO Work Phone: [facility] 11-27-2024 16:07-0500 Respiratory rate 18 /min Dr. Linden Chavez DO Work Phone: [facility] 11-27-2024 16:07-0500 SaO2% (BldA) [Mass fraction] 96 % Dr. Linden Chavez DO Work Phone: [facility] 11-27-2024 16:07-0500 Systolic blood pressure 138 mm[Hg] Dr. Linden Chavez DO Work Phone: [facility] 10-30-2024 03:11-0500 Body temperature 97.4 [degF] Dr. Linden Chavez DO Work Phone: [facility] 10-30-2024 03:11-0500 Diastolic blood pressure 89 mm[Hg] Dr. Linden Chavez DO Work Phone: [facility] 10-30-2024 03:11-0500 Heart rate 77 /min Dr. Linden Chavez DO Work Phone: [facility] 10-30-2024 03:11-0500 Respiratory rate 18 /min Dr. Linden Chavez DO Work Phone: [facility] 10-30-2024 03:11-0500 SaO2% (BldA) [Mass fraction] 95 % Dr. Linden Chavez DO Work Phone: [facility] 10-30-2024 03:11-0500 Systolic blood pressure 103 mm[Hg] Dr. Linden Chavez DO Work Phone: [facility] 10-19-2024 06:50-0500 Body temperature 98.3 [degF] Dr. Linden Chavez DO Work Phone: [facility] 10-19-2024 06:50-0500 Diastolic blood pressure 75 mm[Hg] Dr. Linden Chavez DO Work Phone: [facility] 10-19-2024 06:50-0500 Heart rate 75 /min Dr. Linden Chavez DO Work Phone: [facility] 10-19-2024 06:50-0500 Respiratory rate 18 /min Dr. Linden Chavez DO Work Phone: [facility] 10-19-2024 06:50-0500 SaO2% (BldA) [Mass fraction] 96 % Dr. Linden Chavez DO Work Phone: [facility] 10-19-2024 06:50-0500 Systolic blood pressure 107 mm[Hg] Dr. Linden Chavez DO Work Phone: [facility] 10-19-2024 03:58-0500 Body mass index (BMI) [Ratio] 25.9 kg/m2 Dr. Linden Chavez DO Work Phone: [facility] 10-19-2024 03:58-0500 Body weight 99.[address] Linden Chavez DO Work Phone: [facility] 05-10-2024 19:42-0400 Body mass index (BMI) [Ratio] 27.65 kg/m2 Rosa Quinones SUPER[employer]OR [employer].SEISMOLOGY TECHNICAL OFFICER Work Phone: [facility] 05-10-2024 19:42-0400 Body temperature 97.5 [degF] Rosa Quinones SUPERVISOR [employer].SEISMOLOGY TECHNICAL OFFICER Work Phone: [facility] 05-10-2024 19:42-0400 Body weight 101 kg Rosa Quinones SUPERVISOR [employer].SEISMOLOGY TECHNICAL OFFICER Work Phone: [facility] 05-10-2024 19:42-0400 Diastolic blood pressure 81 mm[Hg] Rosa Quinones SUPERVISOR [employer].SEISMOLOGY TECHNICAL OFFICER Work Phone: [facility] 05-10-2024 19:42-0400 Heart rate 72 /min Rosa Quinones SUPERVISOR [employer].SEISMOLOGY TECHNICAL OFFICER Work Phone: [facility] 05-10-2024 19:42-0400 Respiratory rate 20 /min Rosa Quinones SUPERVISOR [employer].SEISMOLOGY TECHNICAL OFFICER Work Phone: [facility] 05-10-2024 19:42-0400 SaO2% (BldA) [Mass fraction] 96 % Rosa Quinones SUPERVISOR [employer].SEISMOLOGY TECHNICAL OFFICER Work Phone: [facility] 05-10-2024 19:42-0400 Systolic blood pressure 135 mm[Hg] Rosa Quinones LISSY Work Phone: [facility] 03-09-2024 02:47-0400 Body temperature 98.7 [degF] [facility] 03-09-2024 02:47-0400 Diastolic blood pressure 71 mm[Hg] [facility] 03-09-2024 02:47-0400 Heart rate 79 /min [facility] 03-09-2024 02:47-0400 Respiratory rate 16 /min [facility] 03-09-2024 02:47-0400 SaO2% (BldA) [Mass fraction] 99 % [facility] 03-09-2024 02:47-0400 Systolic blood pressure 136 mm[Hg] [facility] 03-09-2024 01:35-0400 Body height 195.58 cm [facility] 03-09-2024 01:35-0400 Body mass index (BMI) [Ratio] 26.1 kg/m2 [facility] 03-09-2024 01:35-0400 Body weight 100 kg [facility] 03-08-2024 10:04-0400 Body temperature 98.4 [degF] [facility] 03-08-2024 10:04-0400 Diastolic blood pressure 87 mm[Hg] [facility] 03-08-2024 10:04-0400 Heart rate 79 /min [facility] 03-08-2024 10:04-0400 Respiratory rate 17 /min [facility] 03-08-2024 10:04-0400 SaO2% (BldA) [Mass fraction] 96 % [facility] 03-08-2024 10:04-0400 Systolic blood pressure 142 mm[Hg] [facility] 03-08-2024 06:24-0400 Body height 195.58 cm [facility] 03-08-2024 06:24-0400 Body mass index (BMI) [Ratio] 27.3 kg/m2 [facility] 03-08-2024 06:24-0400 Body weight 104.7 kg [facility] 02-08-2024 00:47-0400 Body temperature 98.4 [degF] [facility] 02-08-2024 00:47-0400 Diastolic blood pressure 67 mm[Hg] [facility] 02-08-2024 00:47-0400 Heart rate 92 /min [facility] 02-08-2024 00:47-0400 Respiratory rate 16 /min [facility] 02-08-2024 00:47-0400 SaO2% (BldA) [Mass fraction] 95 % [facility] 02-08-2024 00:47-0400 Systolic blood pressure 114 mm[Hg] [facility] 02-07-2024 19:16-0400 Body height 195.58 cm [facility] 02-07-2024 19:16-0400 Body mass index (BMI) [Ratio] 26.7 kg/m2 [facility] 02-07-2024 19:16-0400 Body weight 102.42 kg [facility] 01-27-2024 06:12-0400 Body temperature 97.8 [degF] [facility] 01-27-2024 06:12-0400 Diastolic blood pressure 60 mm[Hg] [facility] 01-27-2024 06:12-0400 Heart rate 66 /min [facility] 01-27-2024 06:12-0400 Respiratory rate 18 /min [facility] 01-27-2024 06:12-0400 SaO2% (BldA) [Mass fraction] 98 % [facility] 01-27-2024 06:12-0400 Systolic blood pressure 100 mm[Hg] [facility] 01-26-2024 23:30-0400 Body height 195.58 cm [facility] 01-26-2024 23:30-0400 Body mass index (BMI) [Ratio] 27.5 kg/m2 [facility] 01-26-2024 23:30-0400 Body weight 105.2 kg [facility] 12-25-2023 11:45-0500 Body temperature 97.4 [degF] [facility] 12-25-2023 11:45-0500 Diastolic blood pressure 81 mm[Hg] [facility] 12-25-2023 11:45-0500 Heart rate 74 /min [facility] 12-25-2023 11:45-0500 Respiratory rate 16 /min [facility] 12-25-2023 11:45-0500 SaO2% (BldA) [Mass fraction] 97 % [facility] 12-25-2023 11:45-0500 Systolic blood pressure 147 mm[Hg] [facility] 12-25-2023 08:45-0500 Body height 195.58 cm [facility] 12-25-2023 08:45-0500 Body mass index (BMI) [Ratio] 26.7 kg/m2 [facility] 12-25-2023 08:45-0500 Body weight 102.3 kg [facility] 12-18-2023 17:53-0500 Body temperature 98.2 [degF] [facility] 12-18-2023 17:53-0500 Diastolic blood pressure 61 mm[Hg] [facility] 12-18-2023 17:53-0500 Heart rate 77 /min [facility] 12-18-2023 17:53-0500 Respiratory rate 18 /min [facility] 12-18-2023 17:53-0500 SaO2% (BldA) [Mass fraction] 97 % [facility] 12-18-2023 17:53-0500 Systolic blood pressure 109 mm[Hg] [facility] 12-18-2023 16:22-0500 Body mass index (BMI) [Ratio] 26.7 kg/m2 [facility] 12-18-2023 16:22-0500 Body weight 102.2 kg [facility] 12-18-2023 15:34-0500 Body height 195.58 cm [facility] 12-08-2023 14:42-0500 Respiratory rate 18 /min [facility] 12-08-2023 12:40-0500 Body height 195.58 cm [facility] 12-08-2023 12:40-0500 Body temperature 99.7 [degF] [facility] 12-08-2023 12:40-0500 Diastolic blood pressure 82 mm[Hg] [facility] 12-08-2023 12:40-0500 Heart rate 75 /min [facility] 12-08-2023 12:40-0500 SaO2% (BldA) [Mass fraction] 95 % [facility] 12-08-2023 12:40-0500 Systolic blood pressure 115 mm[Hg] [facility] 11-22-2023 17:37-0500 Diastolic blood pressure 74 mm[Hg] [facility] 11-22-2023 17:37-0500 Heart rate 71 /min [facility] 11-22-2023 17:37-0500 Respiratory rate 16 /min [facility] 11-22-2023 17:37-0500 SaO2% (BldA) [Mass fraction] 98 % [facility] 11-22-2023 17:37-0500 Systolic blood pressure 118 mm[Hg] [facility] 11-22-2023 14:21-0500 Body height 195.58 cm [facility] 11-22-2023 14:21-0500 Body mass index (BMI) [Ratio] 26.2 kg/m2 [facility] 11-22-2023 14:21-0500 Body temperature 97.6 [degF] [facility] 11-22-2023 14:21-0500 Body weight 100.4 kg [facility] 09-30-2023 23:40-0500 Body height 196.01 cm [facility] 09-30-2023 23:40-0500 Body mass index (BMI) [Ratio] 28.3 kg/m2 [facility] 09-30-2023 23:40-0500 Body temperature 97.7 [degF] [facility] 09-30-2023 23:40-0500 Body weight 108.86 kg [facility] 09-30-2023 23:40-0500 Diastolic blood pressure 77 mm[Hg] [facility] 09-30-2023 23:40-0500 Heart rate 77 /min [facility] 09-30-2023 23:40-0500 Respiratory rate 18 /min [facility] 09-30-2023 23:40-0500 SaO2% (BldA) [Mass fraction] 95 % [facility] 09-30-2023 23:40-0500 Systolic blood pressure 127 mm[Hg] [facility] 09-29-2023 23:39-0500 Diastolic blood pressure 83 mm[Hg] [facility] 09-29-2023 23:39-0500 Systolic blood pressure 132 mm[Hg] [facility] 09-29-2023 19:23-0500 Body height 195.58 cm [facility] 09-29-2023 19:23-0500 Body mass index (BMI) [Ratio] 28.4 kg/m2 [facility] 09-29-2023 19:23-0500 Body temperature 97.6 [degF] [facility] 09-29-2023 19:23-0500 Body weight 108.86 kg [facility] 09-29-2023 19:23-0500 Heart rate 82 /min [facility] 09-29-2023 19:23-0500 Respiratory rate 18 /min [facility] 09-29-2023 19:23-0500 SaO2% (BldA) [Mass fraction] 96 % [facility] 08-26-2023 05:07-0400 Body height 195.58 cm [facility] 08-26-2023 05:07-0400 Body mass index (BMI) [Ratio] 27.2 kg/m2 [facility] 08-26-2023 05:07-0400 Body temperature 97.3 [degF] [facility] 08-26-2023 05:07-0400 Body weight 104.3 kg [facility] 08-26-2023 05:07-0400 Diastolic blood pressure 80 mm[Hg] [facility] 08-26-2023 05:07-0400 Heart rate 78 /min [facility] 08-26-2023 05:07-0400 Respiratory rate 18 /min [facility] 08-26-2023 05:07-0400 SaO2% (BldA) [Mass fraction] 98 % [facility] 08-26-2023 05:07-0400 Systolic blood pressure 144 mm[Hg] [facility] 08-18-2023 15:51-0400 Body temperature 97.59 [degF] [facility] [employer].SEISMOLOGY TECHNICAL OFFICER Work Phone: [facility] 08-18-2023 15:51-0400 Body weight 102.97 kg [facility] [employer]PER[employer].SEISMOLOGY TECHNICAL OFFICER Work Phone: [facility] 08-18-2023 15:51-0400 Diastolic blood pressure 80 mm[Hg] [facility] SUPERVISOR [employer].SEISMOLOGY TECHNICAL OFFICER Work Phone: [facility] 08-18-2023 15:51-0400 Heart rate 74 /min [facility] SUPER[employer].SEISMOLOGY TECHNICAL OFFICER Work Phone: [facility] 08-18-2023 15:51-0400 Respiratory rate 20 /min [facility] SUPERVISOR [employer].SEISMOLOGY TECHNICAL OFFICER Work Phone: [facility] 08-18-2023 15:51-0400 SaO2% (BldA) [Mass fraction] 98 % [facility] SUPER[employer]OR [employer].SEISMOLOGY TECHNICAL OFFICER Work Phone: [facility] 08-18-2023 15:51-0400 Systolic blood pressure 127 mm[Hg] [facility] SUPERVISOR [employer].SEISMOLOGY TECHNICAL OFFICER Work Phone: [facility] 07-29-2023 13:51-0400 Diastolic blood pressure 101 mm[Hg] [facility] 07-29-2023 13:51-0400 Heart rate 86 /min [facility] 07-29-2023 13:51-0400 Respiratory rate 16 /min [facility] 07-29-2023 13:51-0400 SaO2% (BldA) [Mass fraction] 88 % [facility] 07-29-2023 13:51-0400 Systolic blood pressure 135 mm[Hg] [facility] 07-29-2023 09:08-0400 Body mass index (BMI) [Ratio] 28.2 kg/m2 [facility] 07-29-2023 09:08-0400 Body temperature 97.5 [degF] [facility] 07-29-2023 09:08-0400 Body weight 107.95 kg [facility] 05-12-2023 15:52-0400 Body height 195.58 cm [facility] 05-12-2023 15:52-0400 Body mass index (BMI) [Ratio] 28.4 kg/m2 [facility] 05-12-2023 15:52-0400 Body temperature 97.1 [degF] [facility] 05-12-2023 15:52-0400 Body weight 108.86 kg [facility] 05-12-2023 15:52-0400 Diastolic blood pressure 76 mm[Hg] [facility] 05-12-2023 15:52-0400 Heart rate 72 /min [facility] 05-12-2023 15:52-0400 Respiratory rate 14 /min [facility] 05-12-2023 15:52-0400 SaO2% (BldA) [Mass fraction] 94 % [facility] 05-12-2023 15:52-0400 Systolic blood pressure 125 mm[Hg] [facility] 03-07-2023 05:36-0400 Diastolic blood pressure 88 mm[Hg] [facility] 03-07-2023 05:36-0400 Heart rate 81 /min [facility] 03-07-2023 05:36-0400 Respiratory rate 18 /min [facility] 03-07-2023 05:36-0400 SaO2% (BldA) [Mass fraction] 96 % [facility] 03-07-2023 05:36-0400 Systolic blood pressure 141 mm[Hg] [facility] 03-07-2023 01:11-0400 Body height 187.96 cm [facility] 03-07-2023 01:11-0400 Body mass index (BMI) [Ratio] 30.2 kg/m2 [facility] 03-07-2023 01:11-0400 Body temperature 97.9 [degF] [facility] 03-07-2023 01:11-0400 Body weight 106.9 kg [facility] 01-18-2023 09:50-0400 Diastolic blood pressure 66 mm[Hg] [facility] 01-18-2023 09:50-0400 Heart rate 72 /min [facility] 01-18-2023 09:50-0400 Respiratory rate 15 /min [facility] 01-18-2023 09:50-0400 SaO2% (BldA) [Mass fraction] 98 % [facility] 01-18-2023 09:50-0400 Systolic blood pressure 143 mm[Hg] [facility] 01-18-2023 07:58-0400 Body height 195.58 cm [facility] 01-18-2023 07:58-0400 Body mass index (BMI) [Ratio] 27.2 kg/m2 [facility] 01-18-2023 07:58-0400 Body temperature 97.9 [degF] [facility] 01-18-2023 07:58-0400 Body weight 104.2 kg [facility] 12-11-2022 19:20-0500 Diastolic blood pressure 93 mm[Hg] [facility] 12-11-2022 19:20-0500 Heart rate 77 /min [facility] 12-11-2022 19:20-0500 Respiratory rate 16 /min [facility] 12-11-2022 19:20-0500 SaO2% (BldA) [Mass fraction] 96 % [facility] 12-11-2022 19:20-0500 Systolic blood pressure 154 mm[Hg] [facility] 12-11-2022 16:13-0500 Body height 195.58 cm [facility] 12-11-2022 16:13-0500 Body mass index (BMI) [Ratio] 27.7 kg/m2 [facility] 12-11-2022 16:13-0500 Body temperature 96.5 [degF] [facility] 12-11-2022 16:13-0500 Body weight 106.14 kg [facility] 12-10-2022 12:37-0500 Heart rate 78 /min [facility] 12-10-2022 12:37-0500 Respiratory rate 18 /min [facility] 12-10-2022 09:48-0500 Body height 195.58 cm [facility] 12-10-2022 09:48-0500 Body mass index (BMI) [Ratio] 27.8 kg/m2 [facility] 12-10-2022 09:48-0500 Body temperature 97.9 [degF] [facility] 12-10-2022 09:48-0500 Body weight 106.59 kg [facility] 12-10-2022 09:48-0500 Diastolic blood pressure 73 mm[Hg] [facility] 12-10-2022 09:48-0500 SaO2% (BldA) [Mass fraction] 99 % [facility] 12-10-2022 09:48-0500 Systolic blood pressure 109 mm[Hg] [facility] 11-25-2022 15:13-0500 Diastolic blood pressure 69 mm[Hg] [facility] 11-25-2022 15:13-0500 Heart rate 81 /min [facility] 11-25-2022 15:13-0500 Respiratory rate 16 /min [facility] 11-25-2022 15:13-0500 SaO2% (BldA) [Mass fraction] 97 % [facility] 11-25-2022 15:13-0500 Systolic blood pressure 137 mm[Hg] [facility] 11-25-2022 13:07-0500 Body height 195.58 cm [facility] 11-25-2022 13:07-0500 Body mass index (BMI) [Ratio] 27.7 kg/m2 [facility] 11-25-2022 13:07-0500 Body temperature 97.6 [degF] [facility] 11-25-2022 13:07-0500 Body weight 106.14 kg [facility] 10-30-2022 04:24-0500 Diastolic blood pressure 71 mm[Hg] [facility] 10-30-2022 04:24-0500 Heart rate 79 /min [facility] 10-30-2022 04:24-0500 Respiratory rate 16 /min [facility] 10-30-2022 04:24-0500 SaO2% (BldA) [Mass fraction] 95 % [facility] 10-30-2022 04:24-0500 Systolic blood pressure 115 mm[Hg] [facility] 10-29-2022 21:00-0500 Body mass index (BMI) [Ratio] 27.8 kg/m2 [facility] 10-29-2022 21:00-0500 Body temperature 97.3 [degF] [facility] 10-29-2022 21:00-0500 Body weight 106.59 kg [facility] 09-18-2022 10:21-0500 Body height 195.58 cm [facility] Work Phone: 09-18-2022 10:21-0500 Body mass index (BMI) [Ratio] 27.7 kg/m2 [facility] 09-18-2022 10:21-0500 Body temperature 97.4 [degF] [facility] 09-18-2022 10:21-0500 Body weight 106.14 kg [facility] 09-18-2022 10:21-0500 Diastolic blood pressure 94 mm[Hg] [facility] 09-18-2022 10:21-0500 Heart rate 77 /min [facility] 09-18-2022 10:21-0500 Respiratory rate 16 /min [facility] 09-18-2022 10:21-0500 SaO2% (BldA) [Mass fraction] 99 % [facility] 09-18-2022 10:21-0500 Systolic blood pressure 106 mm[Hg] [facility] 08-07-2022 22:15-0400 Diastolic blood pressure 70 mm[Hg] [facility] 08-07-2022 22:15-0400 Heart rate 83 /min [facility] 08-07-2022 22:15-0400 Respiratory rate 16 /min [facility] 08-07-2022 22:15-0400 SaO2% (BldA) [Mass fraction] 98 % [facility] 08-07-2022 22:15-0400 Systolic blood pressure 120 mm[Hg] [facility] 08-07-2022 18:39-0400 Body height 195.58 cm [facility] Work Phone: 08-07-2022 18:39-0400 Body mass index (BMI) [Ratio] 28.4 kg/m2 [facility] 08-07-2022 18:39-0400 Body temperature 97.8 [degF] [facility] 08-07-2022 18:39-0400 Body weight 108.86 kg [facility] 07-03-2022 00:40-0400 Heart rate 77 /min No Primary Care Physician [facility] Work Phone: 07-03-2022 00:40-0400 Respiratory rate 18 /min No Primary Care Physician [facility] Work Phone: 07-02-2022 20:57-0400 Body height 195.58 cm No Primary Care Physician [facility] Work Phone: 07-02-2022 20:57-0400 Body mass index (BMI) [Ratio] 27.8 kg/m2 No Primary Care Physician [facility] Work Phone: 07-02-2022 20:57-0400 Body temperature 97.8 [degF] No Primary Care Physician [facility] Work Phone: 07-02-2022 20:57-0400 Body weight 106.59 kg No Primary Care Physician [facility] Work Phone: 07-02-2022 20:57-0400 Diastolic blood pressure 97 mm[Hg] No Primary Care Physician [facility] Work Phone: 07-02-2022 20:57-0400 SaO2% (BldA) [Mass fraction] 99 % No Primary Care Physician [facility] Work Phone: 07-02-2022 20:57-0400 Systolic blood pressure 140 mm[Hg] No Primary Care Physician [facility] Work Phone: 05-26-2022 01:37-0400 Body height 195.58 cm No Primary Care Physician [facility] Work Phone: 05-26-2022 01:37-0400 Body mass index (BMI) [Ratio] 27.7 kg/m2 No Primary Care Physician [facility] Work Phone: 05-26-2022 01:37-0400 Body temperature 97.1 [degF] No Primary Care Physician [facility] Work Phone: 05-26-2022 01:37-0400 Body weight 106.14 kg No Primary Care Physician [facility] Work Phone: 05-26-2022 01:37-0400 Diastolic blood pressure 82 mm[Hg] No Primary Care Physician [facility] Work Phone: 05-26-2022 01:37-0400 Heart rate 79 /min No Primary Care Physician [facility] Work Phone: 05-26-2022 01:37-0400 Respiratory rate 16 /min No Primary Care Physician [facility] Work Phone: 05-26-2022 01:37-0400 SaO2% (BldA) [Mass fraction] 98 % No Primary Care Physician [facility] Work Phone: 05-26-2022 01:37-0400 Systolic blood pressure 137 mm[Hg] No Primary Care Physician [facility] Work Phone: 04-26-2022 18:38-0400 Heart rate 76 /min No Primary Care Physician [facility] Work Phone: 04-26-2022 18:38-0400 Respiratory rate 17 /min No Primary Care Physician [facility] Work Phone: 04-26-2022 18:38-0400 SaO2% (BldA) [Mass fraction] 97 % No Primary Care Physician [facility] Work Phone: 04-26-2022 14:33-0400 Body temperature 98 [degF] No Primary Care Physician [facility] Work Phone: 04-26-2022 14:33-0400 Diastolic blood pressure 74 mm[Hg] No Primary Care Physician [facility] Work Phone: 04-26-2022 14:33-0400 Heart rate 71 /min No Primary Care Physician [facility] Work Phone: 04-26-2022 14:33-0400 Respiratory rate 18 /min No Primary Care Physician [facility] Work Phone: 04-26-2022 14:33-0400 SaO2% (BldA) [Mass fraction] 99 % No Primary Care Physician [facility] Work Phone: 04-26-2022 14:33-0400 Systolic blood pressure 117 mm[Hg] No Primary Care Physician [facility] Work Phone: 04-26-2022 14:06-0400 Body height 195.58 cm No Primary Care Physician [facility] Work Phone: 04-26-2022 14:06-0400 Body mass index (BMI) [Ratio] 28.9 kg/m2 No Primary Care Physician [facility] Work Phone: 04-26-2022 14:06-0400 Body weight 110.67 kg No Primary Care Physician [facility] Work Phone: 03-20-2022 14:23-0400 Body temperature 99 [degF] No Primary Care Physician [facility] Work Phone: 03-20-2022 14:19-0400 Diastolic blood pressure 97 mm[Hg] No Primary Care Physician [facility] Work Phone: 03-20-2022 14:19-0400 Heart rate 70 /min No Primary Care Physician [facility] Work Phone: 03-20-2022 14:19-0400 Respiratory rate 16 /min No Primary Care Physician [facility] Work Phone: 03-20-2022 14:19-0400 SaO2% (BldA) [Mass fraction] 97 % No Primary Care Physician [facility] Work Phone: 03-20-2022 14:19-0400 Systolic blood pressure 156 mm[Hg] No Primary Care Physician [facility] Work Phone: 03-20-2022 12:29-0400 Body height 195.58 cm No Primary Care Physician [facility] Work Phone: 03-20-2022 12:29-0400 Body weight 98.6 kg No Primary Care Physician [facility] Work Phone: 03-19-2022 23:34-0400 Body mass index (BMI) [Ratio] 25.7 kg/m2 No Primary Care Physician [facility] Work Phone: 03-19-2022 23:08-0400 Body temperature 98.1 [degF] No Primary Care Physician [facility] Work Phone: 03-19-2022 23:08-0400 Diastolic blood pressure 89 mm[Hg] No Primary Care Physician [facility] Work Phone: 03-19-2022 23:08-0400 Heart rate 98 /min No Primary Care Physician [facility] Work Phone: 03-19-2022 23:08-0400 Respiratory rate 14 /min No Primary Care Physician [facility] Work Phone: 03-19-2022 23:08-0400 SaO2% (BldA) [Mass fraction] 97 % No Primary Care Physician [facility] Work Phone: 03-19-2022 23:08-0400 Systolic blood pressure 126 mm[Hg] No Primary Care Physician [facility] Work Phone: 03-19-2022 17:31-0400 Body height 195.58 cm No Primary Care Physician [facility] Work Phone: 03-19-2022 17:31-0400 Body mass index (BMI) [Ratio] 27.7 kg/m2 No Primary Care Physician [facility] Work Phone: 03-19-2022 17:31-0400 Body weight 106.14 kg No Primary Care Physician [facility] Work Phone: 03-02-2022 18:53-0400 Body height 195.58 cm No Primary Care Physician [facility] Work Phone: 03-02-2022 18:53-0400 Body mass index (BMI) [Ratio] 27.7 kg/m2 No Primary Care Physician [facility] Work Phone: 03-02-2022 18:53-0400 Body temperature 97.2 [degF] No Primary Care Physician [facility] Work Phone: 03-02-2022 18:53-0400 Body weight 106.14 kg No Primary Care Physician [facility] Work Phone: 03-02-2022 18:53-0400 Diastolic blood pressure 96 mm[Hg] No Primary Care Physician [facility] Work Phone: 03-02-2022 18:53-0400 Heart rate 82 /min No Primary Care Physician [facility] Work Phone: 03-02-2022 18:53-0400 Respiratory rate 15 /min No Primary Care Physician [facility] Work Phone: 03-02-2022 18:53-0400 SaO2% (BldA) [Mass fraction] 98 % No Primary Care Physician [facility] Work Phone: 03-02-2022 18:53-0400 Systolic blood pressure 145 mm[Hg] No Primary Care Physician [facility] Work Phone: 01-31-2022 09:08-0400 Diastolic blood pressure 77 mm[Hg] No Primary Care Physician [facility] Work Phone: 01-31-2022 09:08-0400 Heart rate 62 /min No Primary Care Physician [facility] Work Phone: 01-31-2022 09:08-0400 Respiratory rate 15 /min No Primary Care Physician [facility] Work Phone: 01-31-2022 09:08-0400 SaO2% (BldA) [Mass fraction] 98 % No Primary Care Physician [facility] Work Phone: 01-31-2022 09:08-0400 Systolic blood pressure 124 mm[Hg] No Primary Care Physician [facility] Work Phone: 01-31-2022 08:10-0400 Body mass index (BMI) [Ratio] 28.9 kg/m2 No Primary Care Physician [facility] Work Phone: 01-31-2022 08:10-0400 Body temperature 97.8 [degF] No Primary Care Physician [facility] Work Phone: 01-31-2022 08:10-0400 Body weight 110.67 kg No Primary Care Physician [facility] Work Phone: 01-08-2022 11:14-0500 Diastolic blood pressure 91 mm[Hg] No Primary Care Physician [facility] Work Phone: 01-08-2022 11:14-0500 Heart rate 78 /min No Primary Care Physician [facility] Work Phone: 01-08-2022 11:14-0500 Respiratory rate 16 /min No Primary Care Physician [facility] Work Phone: 01-08-2022 11:14-0500 Systolic blood pressure 136 mm[Hg] No Primary Care Physician [facility] Work Phone: 01-08-2022 10:14-0500 Diastolic blood pressure 91 mm[Hg] No Primary Care Physician [facility] Work Phone: 01-08-2022 10:14-0500 Heart rate 78 /min No Primary Care Physician [facility] Work Phone: 01-08-2022 10:14-0500 Respiratory rate 16 /min No Primary Care Physician [facility] Work Phone: 01-08-2022 10:14-0500 Systolic blood pressure 136 mm[Hg] No Primary Care Physician [facility] Work Phone: 01-08-2022 07:05-0500 Body mass index (BMI) [Ratio] 25.9 kg/m2 No Primary Care Physician [facility] Work Phone: 01-08-2022 07:05-0500 Body temperature 98.6 [degF] No Primary Care Physician [facility] Work Phone: 01-08-2022 07:05-0500 Body weight 99.4 kg No Primary Care Physician [facility] Work Phone: 01-08-2022 07:05-0500 SaO2% (BldA) [Mass fraction] 97 % No Primary Care Physician [facility] Work Phone: 01-08-2022 06:05-0500 Body mass index (BMI) [Ratio] 25.9 kg/m2 No Primary Care Physician [facility] Work Phone: 01-08-2022 06:05-0500 Body temperature 98.6 [degF] No Primary Care Physician [facility] Work Phone: 01-08-2022 06:05-0500 Body weight 99.4 kg No Primary Care Physician [facility] Work Phone: 01-08-2022 06:05-0500 SaO2% (BldA) [Mass fraction] 97 % No Primary Care Physician [facility] Work Phone: 01-07-2022 08:31-0500 Body temperature 98 [degF] No Primary Care Physician [facility] Work Phone: 01-07-2022 08:31-0500 Diastolic blood pressure 82 mm[Hg] No Primary Care Physician [facility] Work Phone: 01-07-2022 08:31-0500 Heart rate 70 /min No Primary Care Physician [facility] Work Phone: 01-07-2022 08:31-0500 Respiratory rate 16 /min No Primary Care Physician [facility] Work Phone: 01-07-2022 08:31-0500 SaO2% (BldA) [Mass fraction] 95 % No Primary Care Physician [facility] Work Phone: 01-07-2022 08:31-0500 Systolic blood pressure 138 mm[Hg] No Primary Care Physician [facility] Work Phone: 01-07-2022 07:31-0500 Body temperature 98 [degF] No Primary Care Physician [facility] Work Phone: 01-07-2022 07:31-0500 Diastolic blood pressure 82 mm[Hg] No Primary Care Physician [facility] Work Phone: 01-07-2022 07:31-0500 Heart rate 70 /min No Primary Care Physician [facility] Work Phone: 01-07-2022 07:31-0500 Respiratory rate 16 /min No Primary Care Physician [facility] Work Phone: 01-07-2022 07:31-0500 SaO2% (BldA) [Mass fraction] 95 % No Primary Care Physician [facility] Work Phone: 01-07-2022 07:31-0500 Systolic blood pressure 138 mm[Hg] No Primary Care Physician [facility] Work Phone: 01-05-2022 10:48-0500 Body weight 97.25 kg No Primary Care Physician [facility] Work Phone: 01-05-2022 09:55-0500 Body mass index (BMI) [Ratio] 25.4 kg/m2 No Primary Care Physician [facility] Work Phone: 01-05-2022 09:48-0500 Body weight 97.25 kg No Primary Care Physician [facility] Work Phone: 01-05-2022 08:55-0500 Body mass index (BMI) [Ratio] 25.4 kg/m2 No Primary Care Physician [facility] Work Phone: 11-12-2021 20:28-0500 Diastolic blood pressure 81 mm[Hg] No Primary Care Physician [facility] Work Phone: 11-12-2021 20:28-0500 Heart rate 71 /min No Primary Care Physician [facility] Work Phone: 11-12-2021 20:28-0500 Systolic blood pressure 128 mm[Hg] No Primary Care Physician [facility] Work Phone: 11-12-2021 17:55-0500 Body temperature 97.3 [degF] No Primary Care Physician [facility] Work Phone: 11-12-2021 17:55-0500 Respiratory rate 15 /min No Primary Care Physician [facility] Work Phone: 11-12-2021 17:55-0500 SaO2% (BldA) [Mass fraction] 96 % No Primary Care Physician [facility] Work Phone: 11-12-2021 17:53-0500 Body mass index (BMI) [Ratio] 28.2 kg/m2 No Primary Care Physician [facility] Work Phone: 11-12-2021 17:53-0500 Body weight 107.95 kg No Primary Care Physician [facility] Work Phone: 11-09-2021 08:52-0500 Diastolic blood pressure 92 mm[Hg] No Primary Care Physician [facility] Work Phone: 11-09-2021 08:52-0500 Heart rate 74 /min No Primary Care Physician [facility] Work Phone: 11-09-2021 08:52-0500 SaO2% (BldA) [Mass fraction] 95 % No Primary Care Physician [facility] Work Phone: 11-09-2021 08:52-0500 Systolic blood pressure 138 mm[Hg] No Primary Care Physician [facility] Work Phone: 11-09-2021 06:25-0500 Body mass index (BMI) [Ratio] 27.8 kg/m2 No Primary Care Physician [facility] Work Phone: 11-09-2021 06:25-0500 Body temperature 96.9 [degF] No Primary Care Physician [facility] Work Phone: 11-09-2021 06:25-0500 Body weight 106.59 kg No Primary Care Physician [facility] Work Phone: 11-09-2021 06:25-0500 Respiratory rate 18 /min No Primary Care Physician [facility] Work Phone: 10-07-2019 07:48-0500 Body Temperature 96.1 [degF] Jocelyn Valentin [facility], [place] 10-07-2019 07:48-0500 BP Diastolic 90 mm[Hg] Jocelyn Valentin [facility] , [place] 10-07-2019 07:48-0500 BP Systolic 139 mm[Hg] Jocelyn Valentin [place], [place] 10-07-2019 07:48-0500 Pulse (Heart Rate) 72 /min Jocelyn [facility], [place] 10-07-2019 07:48-0500 Pulse Oximetry 95 % Jocelyn [facility] , [place] 10-07-2019 07:48-0500 Respiratory Rate 16 /min Jocelyn Valentin [facility] 10-07-2019 06:06-0500 BMI (Body Mass Index) 26.7 kg/m2 Jocelyn Martinez [place], [place] 10-07-2019 06:06-0500 Body weight 102.15 kg Jocelyn Valentin [place], [place] 10-06-2019 12:03-0500 Height 195.6 cm [place], [place] Encounters Encounter Date Encounter Type Care Provider Facility Start: 04-26-2025 End: 04-26-2025 ambulatory No Primary Care Physician -Laboratory Specimen Start: 04-26-2025 End: 04-26-[address] Linden Chavez DO -Laboratory Specimen Work Phone: Start: 04-26-2025 End: 04-26-2025 ambulatory [facility] Facility:[facility] Start: 04-23-2025 End: 04-23-2025 ambulatory No Primary Care Physician -Laboratory Mike Mendez [facility] Start: 04-23-2025 End: 04-23-[address] Linden Chavez DO -Laboratory Mike Mendez [facility] Start: 04-23-2025 End: 04-23-2025 ambulatory [facility] Facility:[facility] Start: 04-21-2025 End: 04-21-2025 Emergency department patient visit No Primary Care Physician -Emergency Department Work Phone: Start: 03-26-2025 End: 03-26-2025 Emergency department patient visit Dr. Pedro Krishnan DO Work Phone: -Emergency Department Work Phone: Start: 02-16-2025 End: 02-16-2025 Dr. Linden Chavez DO Work Phone: -Emergency Department Work Phone: Start: 02-16-2025 End: 02-16-2025 Emergency department patient visit Dr. Linden Chavez DO Work Phone: [facility] Work Phone: Start: 12-26-2024 End: 12-27-2024 Dr. Panchito Yun -Emergency Departmen t Work Phone: Start: 12-26-2024 End: 12-27-2024 Emergency department patient visit Dr. Panchito Yun -Emergency Department Work Phone: Start: 12-20-2024 End: 12-20-2024 Dr. Avni Cash MD -Emergency Departmen t Work Phone: Start: 12-20-2024 End: 12-20-2024 Emergency department patient visit Dr. Avni Cash MD -Emergency Department Work Phone: Start: 12-14-2024 End: 12-14-2024 ambulatory Facility:[facility] Start: 12-14-2024 End: 12-14-2024 Patient encounter procedure Ion Alfaor [employer]SE[employer] TECHNICAL OFFICER Work Phone: [facility] Comment on above: Eustachian tube dysf [...] Department Work Phone: Start: 10-29-2024 End: 10-30-2024 Johannirene Lemons DO -Emergency Departmen t Work Phone: Start: 10-29-2024 End: 10-30-2024 Emergency department patient visit Linden Chavez Facility:[facility] Start: 10-19-2024 End: 10-19-2024 Dr. Live Ashley MD -Emergency Departm ent Work Phone: Start: 10-19-2024 End: 10-19-2024 Emergency department patient visit Live Ashley Facility:[facility] Start: 08-10-2024 End: 08-10-2024 Emergency department patient visit Adam Allen Facility:[facility] Start: 05-27-2024 End: 05-28-2024 Emergency department patient visit [facility] Facility:[facility] Start: 05-18-2024 End: 05-18-2024 Emergency department patient visit Shania Disla Facility:[facility] Start: 05-10-2024 End: 05-10-2024 ambulatory Facility:[facility] Start: 05-10-2024 End: 05-10-2024 Patient encounter procedure Rosa Quinones [employer]SEISMOLOGY TECHNICAL OFFICER Work Phone: [facility] Comment on above: Bilateral impacted c erumen (Primary Dx) Start: 05-07-2024 End: 05-08-2024 Emergency department patient visit [facility] Facility:[facility] Start: 03-09-2024 End: 03-09-2024 Emergency department patient visit [facility]-Emergency Department Work Phone: Start: 03-08-2024 End: 03-08-2024 Emergency department patient visit [facility]-Emergency Department Work Phone: Start: 02-07-2024 End: 02-08-2024 Emergency department patient visit [facility]-Emergency Department Work Phone: Start: 01-26-2024 End: 01-27-2024 Emergency department patient visit [facility]-Emergency Department Work Phone: Start: 01-05-2024 End: 01-05-2024 ambulatory [facility] Work Phone: Start: 01-05-2024 End: 01-05-2024 Patient encounter procedure [facility], Mike Mendez [facility] Start: 12-25-2023 End: 12-25-2023 Emergency department patient visit [facility]-Emergency Department Work Phone: Start: 12-18-2023 End: 12-18-2023 Emergency department patient visit [facility]Emergency Department Work Phone: Start: 12-08-2023 End: 12-08-2023 Emergency department patient visit [facility]Emergency Department Work Phone: Start: 11-22-2023 End: 11-22-2023 Emergency department patient visit [facility]-Emergency Department Work Phone: Start: 09-30-2023 End: 10-01-2023 Emergency department patient visit [facility]Emergency Department Work Phone: Start: 09-29-2023 End: 09-29-2023 Emergency department patient visit [facility]-Emergency Department Work Phone: Start: 08-26-2023 End: 08-26-2023 Emergency department patient visit [facility]-Emergency Department Work Phone: Start: 08-18-2023 End: 08-18-2023 Office outpatient visit 15 minutes Jimmy Ramos APRN.[facility] Work Phone: [facility] Comment on above: Bilateral impacted c erumen (Primary Dx) Start: 07-29-2023 End: 07-29-2023 [facility] Start: 05-12-2023 End: 05-12-2023 Emergency department patient visit [facility]-Emergency Department Work Phone: Start: 03-07-2023 End: 03-07-2023 Emergency department patient visit [facility]-Emergency Department Start: 01-18-2023 End: 01-18-2023 Emergency department patient visit [facility]Emergency Department Start: 12-15-2022 End: 12-15-2022 ambulatory [facility] Work Phone: Start: 12-15-2022 End: 12-15-2022 Patient encounter procedure [facility], Mike Mendez [facility] Start: 12-11-2022 End: 12-11-2022 Emergency department patient visit [facility]Emergency Department Start: 12-10-2022 End: 12-10-2022 Emergency department patient visit [facility]Emergency Department Start: 11-25-2022 End: 11-25-2022 Emergency department patient visit [facility]Emergency Department Start: 10-29-2022 End: 10-30-2022 Emergency department patient visit [facility]Emergency Department Start: 09-18-2022 End: 09-18-2022 Emergency department patient visit [facility] Start: 08-07-2022 End: 08-07-2022 Emergency department patient visit [facility]gency Department Start: 07-02-2022 End: 07-03-2022 Emergency department patient visit No Primary Care Physician [facility]Emergency Department Start: 05-26-2022 End: 05-26-2022 Emergency department patient visit No Primary Care Physician [facility]Emergency Department Start: 04-26-2022 End: 04-26-2022 Emergency department patient visit No Primary Care Physician [facility]Emergency Department Start: 03-20-2022 Non-patient / Non-visit No Kiersten vasquez Care Physician [facility] [facility] Start: 03-19-2022 End: 03-20-2022 Evaluation and management of inpatient No Primary Care Physician [facility] 3 Start: 03-19-2022 Non-patient / Non-visit No Kiersten vasquez Care Physician [facility] [facility] Start: 03-02-2022 End: 03-02-2022 Emergency department patient visit No Primary Care Physician [facility]-Emergency Department Start: 01-31-2022 End: 01-31-2022 Emergency department patient visit No Primary Care Physician [facility]Emergency Department Start: 01-08-2022 End: 01-08-2022 Emergency department patient visit No Primary Care Physician [facility]Emergency Department Start: 01-07-2022 Non-patient / Non-visit No Kiersten vasquez Care Physician [facility] Inpatient Physicians Start: 01-06-2022 Non-patient / Non-visit No Kiersten christina Care Physician [facility] Start: 01-06-2022 Non-patient / Non-visit No Kiersten crhistina Care Physician [facility] Inpatient Physicians Start: 01-05-2022 Non-patient / Non-visit No Kiersten vasquez Care Physician [facility] Start: 01-05-2022 Non-patient / Non-visit No Kiersten vasquez Care Physician [facility] Inpatient Physicians Start: 01-04-2022 Non-patient / Non-visit No Kiersten vasquez Care Physician [facility] Start: 01-04-2022 End: 01-07-2022 Evaluation and management of inpatient No Primary Care Physician [facility] 3 Start: 11-12-2021 End: 11-12-2021 Emergency department patient visit No Primary Care Physician [facility]Emergency Department Start: 11-09-2021 End: 11-09-2021 Emergency department patient visit No Primary Care Physician [facility]-Emergency Department Start: 10-05-2019 End: 10-07-2019 Evaluation and management of inpatient Jocelyn Valentin Work Phone: [id number] On[facility] Procedures Date Procedure Procedure Detail Performing Clinician Start: 04-26-2025 Urine microalbumin/creatinine ratio measurement No Primary Care Physician Start: 04-26-2025 Urnls dip stick/tabl et reagent auto microscopy No Primary Care Physician Start: 04-23-2025 Endomysial antibody IgA level No Primary Care Physician Start: 04-23-2025 Hepatitis C antibody measurement No Primary Care Physician Comment on above: Reactive: Presumptiv e evidence of antibodies to HCV. Follow CDC recommendations for supplemental testing.Non-Reactive: Antibodies to HCV were not detected; does not exclude the possibility of exposure to HCVReactive Results are presumptive evidence of antibodies to HCV. Follow CDC recommendations for supplemental testing.Order confirmation testing: HCV Quant by PCR testing - HCVPCR [id number] Non Reactive: < 0.8 Equivocal: >/= 0.8 to < 1.0 Reactive: >/= 1.0The CDC requires that a reactive/equivocal HCV antibody result be sent out for confirmation. HCV Quant by PCR testing. Start: 04-23-2025 Prostate specific an tigen measurement No Primary Care Physician Comment on above: This test was perfor med using the [employer] tPSA method. Measured values of a patient sample can vary depending on the testing procedure used. PSA values determined on patient samples by different testing procedures cannot be used interchangeably. If there is a change in PSA assays while monitoring therapy, sequential testing should be performed to confirm baseline values. Start: 04-21-2025 X-ray of knee, four or more views No Primary Care Physician Start: 02-16-[address] Pedro Krishnan [...] home use Jocelyn Valentin Work Phone: Start: 10-06-2019 Gluc bld gluc mntr d ev cleared fda spec home use Jocelyn Valentin Work Phone: Start: 10-06-2019 Gluc bld gluc mntr d ev cleared fda spec home use Jocelyn Valentin Work Phone: Start: 10-06-2019 Gluc bld gluc mntr d ev cleared fda spec home use Jocelyn Valentin Work Phone: Start: 10-06-2019 [facility] ENDOSCOPY REPORT 3m Scanning Start: 10-06-2019 Gluc bld gluc mntr d ev cleared fda spec home use Jocelyn Valentin Work Phone: Start: 10-06-2019 Gluc bld gluc mntr d ev cleared fda spec home use Jocelyn Valentin Work Phone: Start: 10-06-2019 Gluc bld gluc mntr d ev cleared fda spec home use Jocelyn Valentin Work Phone: Start: 10-06-2019 Assay of [...] Myrick Work Phone: Start: 11-21-2013 Colonoscopy Jimmy justice SUPERVISOR [employer].SEISMOLOGY TECHNICAL OFFICER Work Phone: Start: 06-22-2011 History of placement of stent for coronary artery disease S/P coronary artery stent placement Jimmy Rachel SUPERVISOR [employer].SEISMOLOGY TECHNICAL OFFICER Work Phone: Bacteria identified in Blood by [...] DTaP,Tdap,Td Vaccine (2 - Td or Tdap) [facility] Start: 12-14-2025 BP Controlled (<130/80) BP Controlled (<130/80) [facility] Start: 04-21-2025 [facility] Start: 03-26-2025 [facility] Start: 02-16-2025 End: 02-16-2025 [facility] Start: 12-27-2024 [facility] Start: 12-20-2024 [facility] Start: 12-08-2024 [facility] Start: 11-27-2024 End: 11-27-2024 [facility] Start: 10-30-2024 [facility] Start: 10-19-2024 [facility] Start: 07-01-2024 Covid-19 Vaccine ( season) Covid-19 Vaccine ( season) [facility] Start: 07-01-2024 Influenza vaccination Influenza Vaccine (#1) [facility] Start: 03-09-2024 [facility] Start: 03-08-2024 [facility] Start: 02-08-2024 [facility] Start: 01-27-2024 [facility] Start: 12-25-2023 End: 12-25-2023 [facility] Start: 12-18-2023 [facility] Start: 12-08-2023 [facility] Start: 11-22-2023 [facility] Start: 10-31-2023 Behavioral Health Screening Behavioral Health Screening [facility] Start: 10-01-2023 [facility] Start: 09-29-2023 [facility] Start: 09-29-2023 [facility] Start: 08-26-2023 [facility] Start: 07-01-2023 Covid-19 Vaccine ( season) Covid-19 Vaccine ( season) [facility] Start: 07-01-2023 Influenza vaccination Influenza Vaccine (#1) [facility] Start: 01-18-2023 Enteric precautions [facility] Start: 10-31-2022 Depression Assessment Depression Assessment [facility] Start: 10-29-2022 [facility] Start: 08-07-2022 Iv infusion hydration initial 31 min-1 hour HYDRATION IV INFUSION INIT [facility] Start: 04-26-2022 Electrocardiographic procedure [facility] Work Phone: Start: 03-20-2022 Patient discharge [facility] Work Phone: Start: 03-20-2022 Referral to occupational therapist [facility] Work Phone: Start: 03-20-2022 Referral to service [facility] Work Phone: Start: 03-19-2022 Ambulation without limitation [facility] Work Phone: Start: 03-19-2022 Assessment of risk of venous thromboembolism [facility] Work Phone: Start: 03-19-2022 Insertion of catheter into peripheral vein [facility] Work Phone: Start: 03-19-2022 Oxygen therapy [facility] Work Phone: Start: 03-19-2022 Providing care according to standard [facility] Work Phone: Start: 03-19-2022 [facility] Work Phone: Start: 03-19-2022 Admission procedure [facility] Work Phone: Start: 03-19-2022 Following clinical pathway protocol [facility] Work Phone: Start: 03-19-2022 Bacteria identified in Blood by Culture Blood Culture [facility] Work Phone: Start: 03-19-2022 Bacteria identified in Urine by Culture Urine Culture [facility] Work Phone: Start: 03-19-2022 Urine culture Urine Culture [facility] Work Phone: Start: 03-19-2022 Patient referral to dietitian [facility] Work Phone: Start: 03-02-2022 Enteric precautions [facility] Work Phone: Start: 01-07-2022 Patient discharge [facility] Work Phone: Start: 01-06-2022 Care regimes management [facility] Work Phone: Start: 01-06-2022 Notification of physician [facility] Work Phone: Start: 01-06-2022 [facility] Work Phone: Start: 01-04-2022 Following clinical pathway protocol [facility] Work Phone: Start: 01-04-2022 Ambulation without limitation [facility] Work Phone: Start: 01-04-2022 Assessment of risk of venous thromboembolism [facility] Work Phone: Start: 01-04-2022 Insertion of catheter into peripheral vein [facility] Work Phone: Start: 01-04-2022 Oxygen therapy [facility] Work Phone: Start: 01-04-2022 Providing care according to standard [facility] Work Phone: Start: 01-04-2022 Referral to gastroenterology service [facility] Work Phone: Start: 01-04-2022 [facility] Work Phone: Start: 01-04-2022 Catheterization of vein [facility] Work Phone: Start: 01-04-2022 Admission procedure [facility] Work Phone: Start: 01-04-2022 Egd transoral biopsy single/multiple EGD BIOPSY SINGLE/MULTIPLE [facility] Work Phone: Start: 01-04-2022 Egd transoral control bleeding any method EGD CONTROL BLEEDING ANY [facility] Work Phone: Start: 01-04-2022 Enteric precautions [facility] Work Phone: Start: 01-04-2022 Patient referral to dietitian [facility] Work Phone: Start: 05-13-2021 Glaucoma screening Dilated Retinal Exam [facility] Start: 05-13-2021 Hepatitis C antibody, confirmatory test Dilated Retinal Exam [facility] Start: 11-08-2020 Annual PCP Team Chronic Disease Visit Annual PCP Team Chronic Disease Visit [facility] Start: 10-06-2020 Creatinine monitoring Creatinine monitoring [place], [place] Start: 10-06-2020 Potassium monitoring Potassium monitoring [place], [place] Start: 2020 Hepatitis B Vaccine (1 of 3 - Risk 3-dose series) Hepatitis B Vaccine (1 of 3 - Risk 3-dose series) [facility] Start: 2020 RSV Vaccine (1 - 1-dose 60+ series) RSV Vaccine (1 - 1-dose 60+ series) [facility] Start: 2020 RSV Vaccine (1 - Risk 60-74 years 1-dose series) RSV Vaccine (1 - Risk 60-74 years 1-dose series) [facility] Start: 02-17-2020 3 comp foot exam [facility] Start: 02-17-2020 Diabetic foot examination [facility] Start: 07-14-2019 Hepatitis B screening Urine Albumin:Creatinine Ratio [facility] Start: 07-14-2019 Hepatitis B surface antibody level LDL Cholesterol [facility] Start: 07-01-2019 Influenza vaccination Flu vaccine (#1) [place] Start: 06-06-2019 Hemoglobin A1c measurement HbA1C [facility] Start: 06-06-2019 Hemoglobin A1c/Hemoglobin.total in Blood HbA1C [facility] Start: 11-21-2018 Colonoscopy Colonoscopy [facility] Start: 11-21-2018 Colorectal Cancer Screening Colorectal Cancer Screening [facility] Start: 11-21-2018 Screening for malignant neoplasm of colon [facility] Start: 2015 Prostate Cancer Screening Discussion Prostate Cancer Screening Discussion [facility] Start: 2015 Prostate specific antigen measurement Prostate Cancer Screening Discussion [facility] Start: 06-08-2014 Fecal Occult Blood Fecal Occult Blood [facility] Start: 06-08-2014 Screening for malignant neoplasm of colon Fecal Occult Blood [facility] Start: 07-22-2012 Pneumococcal vaccination [facility] Start: 07-22-2012 Pneumococcal Vaccine: 50+ (2 of 2 - PCV) Pneumococcal Vaccine: 50+ (2 of 2 - PCV) [facility] Start: 2010 Colon cancer screen colonoscopy Colon cancer screen colonoscopy [place] Start: 2010 Shingles Vaccine (1 of 2) Shingles Vaccine (1 of 2) [place] Start: 2010 Shingrix Vaccine (1 of 2) Shingrix Vaccine (1 of 2) [facility] Start: 2005 Cologuard (FIT-DNA) Cologuard (FIT-DNA) [facility] Start: [address] Colonography [facility] Start: 2005 Screening for malignant neoplasm of colon [facility] Start: 2005 Sigmoidoscopy Sigmoidoscopy [facility] Start: 2000 Diabetes screen Diabetes screen [place], [place] Start: 1978 Annual PCP Team Chronic Disease Visit Annual PCP Team Chronic Disease Visit [facility] Start: 1978 Anxiety Screening Anxiety Screening [facility] Start: 1978 BP Controlled (<130/80) BP Controlled (<130/80) [facility] Start: 1978 Depression Screening Depression Screening [facility] Start: 1978 HIV Screening HIV Screening [facility] Start: 1978 HIV screening HIV Screening [facility] Start: 1975 HIV screen HIV screen [place], [place] Start: 1971 DTaP/Tdap/Td vaccine (1 - Tdap) DTaP/Tdap/Td vaccine (1 - Tdap) [place] Start: 1970 Lipid screen Lipid screen [place] Start: 1960 Hepatitis C screen Hepatitis C screen [place] Acetone [Presence] i n Serum or Plasma [facility] Amphetamine [Mass/vo lume] in Urine [facility] Benzodiazepine measu rement, urine [facility] Bilirubin measurement, urine [facility] C. difficile DNA Amplification C. difficile DNA Amplification [facility] Clostridioides diffi cile DNA [Presence] in Unspecified specimen by IOANA with probe detection [facility] Cocaine measurement, urine [facility] Gastrointestinal pat hogens panel - Stool by IOANA with probe detection [facility] Hemoglobin [Presence ] in Urine [facility] Initiate Oxygen Ther apy Protocol Initiate Oxygen Therapy Protocol Respiratory Care Routine Daily until discontinued starting 10/05/2019 [place], [place] Comment on above: Daily until discontinued starting 2018 Measurement of 3,4-methylenedioxymethampheta mine in urine [facility] Measurement of keton es in urine using dipstick [facility] Methadone measurement, urine [facility] Microscopic urinalysis [facility] Ova and parasites id entified in Unspecified specimen by Light microscopy [facility] Patient Education [facility] Work Phone: Patient referral [facility] Work Phone: pH of Urine [facility] pH of Urine [facility] Phencyclidine [Prese nce] in Urine [facility] POCT Glucose [facility] [place] Comment on above: As Needed until discontinued starting 4X Daily (AC & HS) u ntil discontinued starting 10/06/2019 Removal impacted cer umen irrigation/lvg unilat AMBULATORY EAR LAVAGE/IRRIGATION Procedures Routine Bilateral impacted cerumen Ordered: 05/10/2024 [facility] Work Phone: Comment on above: Ordered: 05/10/2024 Specific gravity of Urine [facility] Urinalysis, blood, qualitative [facility] Urine barbiturate measurement [facility] Urine cannabinoid measurement [facility] Urine culture [facility] Urine dipstick for glucose [facility] Urine dipstick for l eukocyte esterase [facility] Urine dipstick for nitrite [facility] Urine dipstick for protein [facility] Urine examination [facility] Urine microscopy: ep ithelial cells [facility] Urine Microscopy: white cells [facility] Urine opiate measurement [facility] Urobilinogen [Presen ce] in Urine [facility] Immunizations Immunization Date Immunization Notes Care Provider Fa cility 11-07-2021 Covid (Pfizer) No Primary Ca re Physician [facility] 04-23-2021 Covid (Moderna) No Primary C are Physician [facility] 03-26-2021 Covid (Moderna) No Primary C are Physician [facility] 11-08-2019 influenza virus vacc ine, unspecified formulation Jimmy Ramos APRN.CNP Work Phone: [facility] 08-08-2012 tetanus and diphther ia toxoids, adsorbed, preservative free, for adult use (2 Lf of tetanus toxoid and 2 Lf of diphtheria toxoid) Jimmy Ramos APRN.CNP Work Phone: [facility] 07-22-2011 pneumococcal polysaccharide vaccine, 23 valent Jimmy Ramos APRN.SEISMOLOGY TECHNICAL OFFICER Work Phone: [facility] Payers Date Payer Category Payer Self-pay [id number] 2023 Private Health Insurance [facility] [id number] 2023 Unknown [id number] 2022 Medicaid [id number] 2013 Unknown [id number] 2013 Unknown [id number] Unknown [id number] Unknown [id number] Unknown [id number] 462 Unknown [id number] 462 Unknown [id number] .[id number]. 462 Unknown [id number] .[id number]. 462 Unknown [id number] 462 Unknown [id number] 462 Unknown [id number] 462 Unknown [id number] 462 Unknown [id number]. 462 Unknown [id number] 462 Unknown [id number] 462 Unknown [id number] 462 Unknown [id number] 462 Social History Date Type Detail Facility Start: 10-06-2019 End: 04-21-2025 Tobacco smoking status ORIS Never smoker [facility] Start: 10-06-2019 Alcohol intake Ex-drinker (finding) [place] Start: 10-06-2019 Alcohol Comment Last drinking 1993, Hx EtOH 10 years, never attended AA program [place], [place] Start: 1960 Sex Assigned At Not on file [place] Start: 03-02-2022 End: 03-09-2024 Tobacco smoking status ORIS Unknown if ever smoked [facility] Start: 05-16-2021 Rare [facility] Start: 11-25-2020 None [facility] Start: 11-24-2020 Alone [facility] Start: 05-16-2021 Non-smoker [facility] Start: 1960 Sex Assigned At Male [facility] Start: 08-18-2023 Tobacco use and exposure Former smokeless tobacco user [facility] End: 07-01-1978 History of tobacco use User of smokeless tobacco [facility] Start: 08-18-2023 End: 12-14-2024 Alcohol intake Current non-drinker of alcohol (finding) [facility] Start: 10-05-2020 End: 08-18-2023 History of Social function [facility] Start: 10-05-2020 End: 08-18-2023 Tobacco use panel [facility] Adult Depression Screening Assessment 5 [facility] Start: 08-18-2023 Tobacco Comment Quit when he s wallowed a wad of chew playing baseball! [facility] Start: 02-16-2025 Sex Male (finding) [facility] Medical Equipment Procedure Code Equipment Code Equipment Origin al Text Equipment Identifier Dates [id number], [id number] Start: 09-16-2017 Comment on above: Test blood sugar(s) 4 times daily. Dx: 250.02. InsulinDependent: Yes Use once daily with Lantus Goals Date Patient Goal Desired Activity /State Functional Status Date Assessment Result Facility 03-20-2022 Functional status Up ad hailee [facility] Work Phone: 01-07-2022 Functional status Ambulates [facility] Work Phone: 03-17-2015 Are you deaf, or do you have serious difficulty hearing No 03/17/2015 2:45 PM EDT Chantelle Jarrett Ma No [facility] 03-17-2015 Are you blind, or do you have serious difficulty seeing, even when wearing glasses No 03/17/2015 2:45 PM EDT Chantelle Jarrett Ma No [facility] 03-17-2015 Do you have serious difficulty walking or climbing stairs No 03/17/2015 2:45 PM EDT Chantelle Jarrett Ma No [facility] 03-17-2015 Do you have difficul ty dressing or bathing No 03/17/2015 2:45 PM EDT Chantelle Jarrett Ma No [facility] 03-17-2015 Because of a physica l, mental, or emotional condition, do you have difficulty doing errands alone such as visiting a physician's office or shopping No 03/17/2015 2:45 PM EDT Chantelle Jarrett Ma No [facility] Mental Status Date Assessment Result Facility 02-16-2025 Cognitive function Follows Commands;Drows y [facility] Work Phone: 12-08-2024 Cognitive function Awake;Alert;Appropriat e [facility] Work Phone: 10-30-2024 Cognitive function Awake;Alert;Appropriat e [facility] Work Phone: 10-19-2024 Cognitive function Awake;Alert;A ppropriate;Fol lows Commands [facility] Work Phone: 02-07-2024 Cognitive function Level Of Cons ciousness Awake;Alert;Appropriate;Fol lows Commands [facility] Work Phone: 01-26-2024 Cognitive function Level Of Cons ciousness Awake;Alert;Appropriate;Fol lows Commands [facility] Work Phone: 12-25-2023 Cognitive function Level Of Cons ciousness Awake;Alert;Appropriate;Fol lows Commands [facility] Work Phone: 12-08-2023 Cognitive function Level Of Cons ciousness Awake;Alert;Appropriate;Fol lows Commands [facility] Work Phone: 11-22-2023 Cognitive function Level Of Cons ciousness Awake;Alert;Follows Commands [facility] Work Phone: 07-29-2023 Cognitive function Level Of Cons ciousness Awake;Alert;Appropriate;Fol lows Commands [facility] Work Phone: 12-10-2022 Cognitive function Level Of Cons ciousness Awake;Alert;Appropriate;Fol lows Commands [facility] Work Phone: 10-30-2022 Cognitive function Level Of Cons ciousness Awake;Alert;Appropriate;Fol lows Commands;Drowsy [facility] Work Phone: 08-07-2022 Cognitive function Level Of Cons ciousness Awake;Alert;Appropriate;Fol lows Commands [facility] Work Phone: 03-20-2022 Cognitive function Level Of Cons ciousness Drowsy [facility] Work Phone: 03-19-2022 Cognitive function [facility] Work Phone: 03-19-2022 Cognitive function Level Of Cons ciousness Awake;Appropriate;Follows Commands [facility] Work Phone: 01-06-2022 Cognitive function Voice/Name [facility] Work Phone: 03-17-2015 Because of a physica l, mental, or emotional condition, do you have serious difficulty concentrating, remembering, or making decisions No 03/17/2015 2:45 PM EDT Chantelle Jarrett Ma No [facility] Clinical Notes 10-13-2015 to 04-21-2025 Ion Alfaro SUPERVISOR [employer].[facility] - 12/14/2024 9:32 AM ESTRe[facility] - 05/10/2024 8:10 PM EDTReed, [facility] - 05/10/2024 8:10 PM EDRosa Huitron APRN.[facility] - 05/10/2024 7:47 PM EDT Note Date & Type Note Facility 04-21-2025 Discharge summary [facility] 04-21-2025 Radiology Diagnostic study note [facility] Imaging Services [address], [place] [address] Knee 4 or More Views MR#: [id number] Acct: [id number] Name: JERALD YODER Rep #: [id number] : 1960 M 65 From: Pet er Peer DO PCP: Care Physician,No Primary Status: REG ER Study:Knee 4 or More Views Date of Exam: 04/21/25 Exam# [id number] Ordering Dr: Zuleyka Calle MD PROCEDURE: KNEE 4 OR MORE VIEWS 04/21/2025 REASON FOR EXAM: INJURY/PAIN Initial encounter TECHNIQUE: KNEE 4 OR MORE VIEWS COMPARISON: None. FINDINGS: Bones: No fracture. No dislocation. Joints: Cartilage thinning and periarticular osteophytes indicate osteoarthritis Effusion: None. Soft tissues: Unremarkable Other: RAD/Knee 4 or More Views IMPRESSION: No acute process detected. [facility]: Dr. 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 Author Type: Nurse Practitioner Type: Progress Notes Filed: 12/14/2024 09:40 Note Text: This note was created using [employer]. Subjective Jerald Yoder is a 64 year [...] CETIRIZINE 10 MG TABLET Ion Alfaro APRN.CNP [facility] 12-14-2024 History of Present illness Narrative This note was created using [employer]. Subjective Jerald Yoder is a 64 year [...] - CETIRIZINE 10 MG TABLET Ion Alfaro APRN.SEISMOLOGY TECHNICAL OFFICER documented in this encounter [facility] 05-10-2024 Nurse Note Ambulatory Ear Lavage Pre-treatment: Warm water Treatment: Both ears Equipment and Irrigation solution and Volume used: Single use syringe with single use irrigation tip Return flow appearance: Brown Patient tolerated procedure: yes Tympanic membrane assessment: Tympanic membrane assessed by LIP pre-procedure Josef Lee APRN [facility] 05-10-2024 Nurse Note Ambulatory Ear Lavage Pre-treatment: Warm water Treatment: Both ears Equipment and Irrigation solution and Volume used: Single use syringe with single use irrigation tip Return flow appearance: Brown Patient tolerated procedure: yes Tympanic membrane assessment: Tympanic membrane assessed by LIP pre-procedure Josef Lee APRN documented in this encounter [facility] 05-10-2024 Note HNO ID: [id number] Author: ROSA QUINONES APRN.[facility] Service: ? Author Type: Nurse Practitioner Type: Progress Notes Filed: 05/11/2024 08:47 Note Text: This note was created using [employer]. 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 Requesting ear irrigation. The history is provided by the patient. No nutrition program instructor was used. 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 (more content not included)... [facility] 05-10-2024 History of Present illness Narrative This note was created using [employer]. 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 Requesting ear irrigation. The history is provided by the patient. No nutrition program instructor was used. Ear Problem There is [...] Colon polyp 2013 adenomatous Coronary artery disease [place] in 1994 Diabetic neuropathy (HCC) DM (diabetes [...] visualized and normal. - AMBULATORY EAR LAVAGE/IRRIGATION Roas Quinones APRN.SEISMOLOGY TECHNICAL OFFICER documented in this encounter [facility] 02-07-2024 Discharge summary Note Date/Time February 07, 2024 9:10 pm [facility] Medical Records Department [address] [place] [address] Emergency Department Summary 02/07/24 MR#: [id number] Acct: [id number] Name: JERALD YODER Rep #:[id number] : [...] vomiting. Denies diarrhea or constipation. [facility] Medical History Back pain due to injury [...] 73.2 H Lymph % (Auto) 17.4 L [place] % (Auto) 5.4 Eos % (Auto) 3.1 [...] Clarity Clear Urine pH 6.0 Ur Specific [place] 1.015 Urine Protein 15 H Urine Glucose [...] (Auto) Neut % (Auto) Lymph % (Auto) [place] % (Auto) Eos % (Auto) Baso % (Auto) Absolute Neuts (auto) Absolute Lymphs (auto) Nucleated RBC % Sodium Potassium Chloride Carbon Dioxide Anion Gap BUN Creatinine Estim Creat Clear Calc Est GFR (MDRD) Af Amer Est GFR (MDRD) Non-Af BUN/Creatinine Ratio Glucose Calcium Total Bilirubin AST ALT Alkaline Phosphatase Total Protein Albumin Globulin Albumin/Globulin Ratio Urine Color Urine Clarity Urine pH Ur Specific [place] Urine Protein Urine Glucose (UA) Urine Ketones [...] your Primary Care Provider. Call [facility] ([phone]) or report to the closest Emergency Room. Call 911 if necessary. 02/08/2411 <Electronically signed by Keenan Wu DO> Cosigner Signature (if applicable): CC: Dr. Linden Chavez DO ~ Signed [facility] Work Phone: 1(595) 962-156601-23-2024 Discharge summary Author Barry Mathew [facility] November 22, 2023 5:13pm Note Date/Time November 22, 2023 3 :08pm [facility] Medical Records Department [address] [place] [address] Emergency Department Summary 11/22/23 MR#: [id number] Acct: [id number] Name: JERALD YODER Rep #:[id number] : [...] states that while he was at his osuxhjr-wz-yvj's, he felt weak and fell, but did not hurt himself. He presents via EMS with generalized weakness. He states he has been eating and drinking well, to the point where he had 4 hotdogs prior to arrival. He denies any chestpain or shortness of breath. No exacerbating or alleviating factors. [facility] Medical History Back pain due to injury [...] not feel that he requires observation. His axupqev-lr-kjm is here. They are comfortable with discharge. [...] 70.9 H Lymph % (Auto) 18.9 L [place] % (Auto) 5.0 Eos % (Auto) 4.5 [...] Sl. Cloudy Urine pH 5.0 Ur Specific [place] 1.020 Urine Protein 15 H Urine Glucose [...] 11/22/23 15:04 IMPRESSION: Stable examination. Electronically Signed: Brnet Gray MD at 15:48 EST , Discharge [...] your Primary Care Provider. Call [facility] ([phone]) or report to the closest Emergency Room. Call 911 if necessary. 11/22/231712 <Electronically signed by Barry Mathew MD> Cosigner Signature (if applicable): CC: Dr. Linden Chavez, ~ Signed [facility] Work Phone: [phone]) 159-335211-30-2023 Discharge summary Author Barry [facility] September 29, 2023 11:33pm Note Date/Time September 29, 2023 9:05pm [facility] Medical Records Department [address] [place] [address] Emergency Department Summary 09/29/23 MR#: [id number] Acct: [id number] Name: JERALD YODER Rep #:[id number] : 1960 63 From: Barry Mathew MD PCP: Dr. Linden Chavez DO Status:REG ER Location: ED HPI History of Present Illness Chief Complaint: Nausea/Vomiting/Diarrhea Narrative Narrative: 63-year-old male past medical history of hypertension, presents with nausea and diarrhea that he has had for the last 5 hours. He states he ate at the [employer] and had a salad with 6 ranch [...] pain or shortness of breath. [facility] Medical History Back pain due to injury [...] 78.5 H Lymph % (Auto) 13.5 L [place] % (Auto) 5.2 Eos % (Auto) 1.7 [...] QPM Primary Care Provider: Linden Chavez Referrals: Linden Chavez DO [Primary Care Provider] - 3-5 Days What to do if you have Problems For any increased pain, shortness of breath, bleeding, nausea or vomiting, chestpain, or any unexpected problems, contact your Primary Care Provider. Call [facility] ([phone]) or report to the closest Emergency Room. Call 911 if necessary. 09/29/232332 <Electronically signed by Barry Mathew MD> Cosigner Signature (if applicable): CC: Dr. 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 flash glucose scanning reader (iGoSTYLE CLAUDIA 14 DAY READER) misc 1 Device [...] of care. This note was generated using Event[employer]am software. It may contain errors in wording, punctuation, or spelling. Jimmy Ramos APRN.SEISMOLOGY TECHNICAL OFFICER [facility] Wu [facility] December 11, 2022 9:32pm Note Date/Time December 11, 2022 4:55pm [facility] Medical Records Department [address] [place] [address] Emergency Department Summary 12/11/22 MR#: [id number] Acct: [id number] Name: JERALD YODER Rep #:[id number] : [...] has not made an appointment. [facility] Medical History Back pain due to injury [...] % (Auto) 67.1 Lymph % (Auto) 22.4 [place] % (Auto) 6.1 Eos % (Auto) 3.4 [...] Color Urine Clarity Urine pH Ur Specific [place] Urine Protein Urine Glucose (UA) Urine Ketones [...] (Auto) Neut % (Auto) Lymph % (Auto) [place] % (Auto) Eos % (Auto) Baso % [...] Clarity Clear Urine pH 6.0 Ur Specific [place] 1.015 Urine Protein 15 H Urine Glucose [...] EST Reading Location ID and State: [address] [place] [address] Tel [phone], Service support , Discharge Plan Triage Chief [...] Referrals: Linden Chavez DO [Med Staff - Improvement Coordinator] - As soon as possible Disposition Disposition: Home, Self Care What to do if you have Problems For any increased pain, shortness of breath, bleeding, nausea or vomiting, chestpain, or any unexpected problems, contact your Primary Care Provider. Call [facility] ([phone]) or report to the closest Emergency Room. Call 911 if necessary. 12/11/222131 <Electronically signed by Keenan Wu DO> Cosigner Signature (if applicable): CC: Dr. Iván Hassan MD ~ Signed [facility] Work Phone: 1(732) 558-553701-26-[address] Calle [facility] November 25, 2022 3:03pm Note Date/Time November 25, 2022 1 :30pm [facility] Medical Records Department [address] [place] [address] Emergency Department Summary 11/25/22 MR#: [id number] Acct: [id number] Name: JERALD YODER Rep #:[id number] : [...] infectious symptoms. He denies chest pain, dyspnea, [place] exertion, orthopnea PND. He does endorse crampy [...] on your insurance card issued to you [facility] 2. Increase fluid intake today 3. You need to take your medication as prescribed and you need to be compliant with your diet Disposition Disposition: Home, Self Care What to do if you have Problems For any increased pain, shortness of breath, bleeding, nausea or vomiting, chestpain, or any unexpected problems, contact your Primary Care Provider. Call [facility] ([phone]) or report to the closest Emergency Room. Call 911 if necessary. 11/25/22 1503 <Electronically signed by Ar Calle MD> Cosigner Signature (if applicable): CC: No Primary Care Physician ~ Signed [facility] Work Phone: [phone]) 302-137912-14-2015 History of Past illness Narrative* Problem Noted Date Diagnosed Date Resolved Date Ankle fracture, left 10/13/2015 017 COPD (chronic obstructive pulmonary disease) 1 11/17/2019 documented as of this encounter (statuses as of 08/18/2023) [facility]. Chavez [facility] January 18, 2023 9:52am Note Date/Time January 18, 2023 8:1 7am [facility] Medical Records Department [address] [place] [address] Emergency Department Summary 01/18/23 MR#: [id number] Acct: [id number] Name: JERALD YODER Rep #:[id number] : [...] lightheaded when he stands up. [facility] Medical History Back pain due to injury [...] history of alcohol abuse. Medications: Reviewed in [facility], the nurse had just gone over them [...] 71.9 H Lymph % (Auto) 18.0 L [place] % (Auto) 6.8 Eos % (Auto) 2.6 [...] your Primary Care Provider. Call [facility] ([phone]) or report to the closest Emergency Room. Call 911 if necessary. 01/18/23 0952 <Electronically signed by Bernard Chavez MD> Cosigner Signature (if applicable): CC: Dr. Linden Chavez DO ~ Signed [facility] Work Phone: Discharge summary Author [facility] March 08, 2024 8:59am Note Date/Time March 08, 2024 8:14am [facility] Medical Records Department [address] [place] [address] Emergency Department Summary 03/08/24 MR#: [id number] Acct: [id number] Name: JERALD YODER Rep #:[id number] : [...] to the hospital for evaluation. [facility] Medical History Back pain due to injury [...] Labs: Laboratory Results - last 24 hr 05/09/24 06:45 WBC 7.3 RBC 5.22 Hgb 14.8 Hct 42.9 MCV 82.2 MCH 28.4 MCHC 34.5 RDW Std Deviation 39.7 RDW Coeff of Manjinder 13.3 Plt Count 194 MPV 9.6 Immature Gran % (Auto) 0.400 Neut % (Auto) 65.4 Lymph % (Auto) 22.8 [place] % (Auto) 6.9 Eos % (Auto) 3.9 [...] 7:52 EDT Reading Location ID and State: [facility] / [place] , Service support , Acute abdominal series [...] your Primary Care Provider. Call [facility] ([phone]) or report to the closest Emergency Room. Call 911 if necessary. 03/08/24 0859 <Electronically signed by Johann Lemons DO> Cosigner Signature (if applicable): CC: Dr. Linden Chavez DO ~ Signed [facility] Work Phone: Discharge summary Author Ar Calle [facility] Note Date/Time April 21, 2025 1:09 pm [facility] Medical Records Department [address] [place] [address] Emergency Department Summary 04/21/25 MR#: [id number] Acct: [id number] Name: JERALD YODER Rep #:[id number] : 1960 65 From: Ar Calle MD PCP: Care Physician,No Primary Status :REG ER Location: ED HPI History of Present Illness Chief Complaint: Fall Detail of Chief Complaint: Mechanical fall complains of knee giving out since fall Informant: patient Onset/Context/Timing Onset: Hours (Less than 1 hour ago) Mechanism/Context: Blunt Injury and Fall Location of pain/injuries: Left knee Location: Left knee suffer traumatic injury. He complains of pain left knee andunus Current Severity: Mild Maximum Severity: Mild Worsened by: Nothing specific Relieved by: Nothing Associated Symptoms Associated Symptoms: Negative for Parasthesias, Weakness, Loss of function, Inability to ambulate, Loss of consciousness or Amnesia Narrative Narrative: Patient is a 65-year-old male with multiple medical problems which includes alcohol abuse, pancreatitis, type 2 diabetes, hyperosmolar nonketotic coma, hypothyroidism, essential hypertension and coronary disease. He was walking fell and sustained an abrasion and trauma to the anterior left knee. He states it is not painful just feels weird and his knee gives out. He has never been diagnosed with diabetic neuropathy. He does endorse symptoms consistent with claudication and has a short-distance claudication. Patient denies head injury. Patient denies neck pain. Patient denies paresthesia, anesthesia or motor weakness upper extremity. He states he has hadabnormal sensation of his feet for some time as well as legs. He denies chest pain, tightness or pressure. He denies shortness of breath. Hedenies black or maroon-colored stool. 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 Esophageal candidiasis Current use of insulin Back pain due to injury Restless legs Injury of head and neck COPD (chronic obstructive pulmonary disease) High cholesterol History of stress test Depression Chronic pain Non-smoker Sleep apnea Diabetes Hyperlipidemia Hypertension Myocardial infarct Home Medications ?Medication ?Instructions ?Recorded ?Last Taken ?Type metformin 500 mg tablet,extended 500 mg PO BID diabete s 05/02/19 03/18/22 History release 24 hr glipizide 5 mg tablet 5 mg PO BID diabetes 2 03/18/22 History insulin glargine 100 unit/mL (3 10 unit subcut BID mya betes 03/19/22 03/18/22 History mL) subcutaneous pen (Lantus Solostar U-100 Insulin) hydrocortisone 1 % topical cream 1 applic topical TID PRN skin 08/26/23 Unknown Rx irritation #28.4 grams ibuprofen 600 mg tablet 600 mg PO Q8H PRN PRN pain # 20 08/26/23 Unknown Rx TABLETS insulin glargine 100 unit/mL 1 unit subcut QPM 3 Unknown History subcutaneous solution (Lantus U-100 Insulin) levothyroxine 100 mcg tablet 100 mcg PO DAILY 09/29/23 Unknown History cyclobenzaprine 10 mg tablet 10 mg PO TID PRN Muscle S pasm #15 08/10/24 Unknown Rx TABLETS aspirin 81 mg tablet,delayed 81 mg PO DAILY 02/16/25 U nknown History release (Adult Aspirin Regimen) doxycycline hyclate 100 mg capsule 100 mg PO BID 7 day s #14 caps 02/16/25 Unknown Rx gabapentin 100 mg capsule 100 mg PO TID #90 caps 04/21 Unknown Rx Allergy/AdvReac Type Severity Reaction Status Date / Time diphenhydramine HCl (From Allergy Rash Verified 04/21/25 10:51 Benadryl) Penicillins Allergy Rash Verified 04/21/25 10:51 venom-honey bee (bee venom Allergy Swelling Verified 04/21/25 10:51 (honey bee)) Surgical History H/O hernia repair Hx of left knee surgery Hx of inguinal herniorrhaphy History of coronary artery stent placement Social History household members: none Smoking Status: Never smoker substance use type: does not use ROS ROS ED Musculoskeletal Musculoskeletal: Denies arthralgias, back pain, myalgias or neck pain Integumentary Denies rash Neurologic Neurologic: Reports paresthesias RLE and LLE and weakness Hematologic/Lymphatic Hematologic/Lymphatic: Denies easy bleeding or easy bruising EXAM Physical Exam Const Vital Signs: 04/21/25 10:50 04/21/25 10:51 04/21/25 11:50 Temperature 97.7 F L Temperature Source Oral Pulse Rate 80 78 Respiratory Rate 16 14 Respiratory Effort Normal Respiratory Depth Normal Respiratory Pattern Normal Blood Pressure 134/78 H 139/76 H Blood Pressure Mean 96 97 Pulse Ox 99 98 Oxygen Delivery Method Room Air Room Air Room Air Positive well nourished and well developed General Appearance ED: well developed and NAD HEENT HEENT Narrative: Patient has evidence of prior abrasion to the right maxillary area. This is well-healed. There is no evidence infection. atraumatic; Negative for tenderness Nose: Negative for septum abnormal Eyes PERRL and EOMs intact bilaterally General Eye ED: Yes other Other Details: There is no subconjunctival hemorrhage. Neck full ROM General: Negative for tenderness Chest Wall inspection of chest normal and palpation of chest normal Resp normal respiratory effort and clear to auscultation bilaterally Cardio regular rhythm, S1 normal heart sound, S2 normal heart sound and no murmurs Rate: regular rate GI normal to inspection, nondistended, normoactive bowel sounds, non-tender, non-distended and no masses GI Narrative: There is no pain ovation of the right or left iliac bone, right or left ischial tuberosity or pubic symphysis. Auscultation: normoactive bowel sounds Back/Spine no thoracic nor lumbar tenderness Extremity full ROM; Negative for normal to inspection Extremity Narrative: Patient has abrasion that is acute and old over the left knee. He has minimal joint line tenderness. There is no laxity varus valgus stress testing. Tim's test was negative. Modified Brandon's test is negative. There is nomass or fullness in the popliteal fossa. PT and DP pulse are palpable however he does have stigmata of microvascular disease with lack of hair and thickened toenails. Neuro oriented x3, CN's II-XII intact bilaterally, moves all extremities, no focal motor deficits and No no sensory deficits noted Neuro Narrative: Patient reports altered sensation of his right and left leg and feet. Rodrigo Coma Scale: document GCS findings Spontaneous Obeys Commands Oriented 15 Sensorium / Orientation: alert Deep Tendon Reflexes: Rt Patellar (L4): 1+, Lt Patellar (L4): 1+, Rt Ankle (S1):1+ and Lt Ankle (S1): 1+ Deep Tendon Reflexes Back: Rt Patellar (L4): 1+, Lt Patellar (L4): 1+, Rt Ankle (S1): 1+ and Lt Ankle (S1): 1+ Plantar Reflex: Downgoing: bilateral Psych mental status grossly normal and thought process normal Skin Trauma: abrasion MDM MDM MDM Narrative Medical decision making narrative: Patient fell probably for multiple reasons diabetic neuropathy, oversized shoes and possible autonomic dysfunction. Because of his knee trauma and pain x-ray was obtained to evaluate contusion with abrasion versus fracture. Radiography Chest X-Ray - ED: Read by ED Physician (4 view x-ray of the left knee reveals degenerative arthritic changes. There is a small effusion. There is no evidence of fracture, subluxation dislocation.) Diagnostic Testing: Clinical Impression(s) from Imaging Studies Knee X-Ray 04/21/25 11:11 IMPRESSION: No acute process detected. Reading Location: [facility] Treatment and Re-Evaluation Narrative: Patient was formed of his x-ray results. Patient was informed that his pain andnumbness is due to his diabetic neuropathy. He was started on gabapentin. He was instructed to follow-up with his doctor for dose adjustments. Discharge Plan Triage Chief Complaint: Fall ED Provider: Ar Calle Dx/Rx/DC Orders Clinical Impression: Contusion of left knee, initial encounter, Coronary atherosclerosis of yuhaaviatam coronary artery, Essential hypertension, HLD (hyperlipidemia), History of ETOH abuse, Abrasion, left knee, initial encounter, Diabetic neuropathy Instructions: ED Abrasion, ED Contusion, Lower Extremity, ED Neuropathy, Peripheral Prescriptions: New gabapentin 100 mg capsule 100 mg PO TID Qty: 90 0RF No Action metformin 500 MG tablet 500 mg PO BID Patient Comments: diabetes insulin glargine [Lantus Solostar U-100 Insulin] 100 unit/mL (3 mL) Insulin Pen 10 unit SUBCUT BID glipizide 5 mg tablet 5 mg PO BID Rx Instructions: Hold if glucose less than 130 mg/dl ibuprofen 600 mg tablet 600 mg PO Q8H PRN PRN (Reason: pain) Qty: 20 0RF hydrocortisone 1 % cream 1 applic topical TID PRN (Reason: skin irritation) Qty: 28.4 0RF levothyroxine 100 mcg tablet 100 mcg PO DAILY Patient Comments: Take 1 tab by mouth once daily on an empty stomach insulin glargine [Lantus U-100 Insulin] 100 unit/mL solution 1 unit subcut QPM cyclobenzaprine 10 mg tablet 10 mg PO TID PRN (Reason: Muscle Spasm) Qty: 15 0RF aspirin [Adult Aspirin Regimen] 81 mg tablet,delayed release (DR/EC) 81 mg PO DAILY doxycycline hyclate 100 mg capsule 100 mg PO BID 7 Days Qty: 14 0RF Primary Care Provider: Care Physician,No Primary Referrals: Care Physician,No Primary [Primary Care Provider] - Doctor,Your [Non-Staff] - 1-2 Weeks Activity Restrictions/Additional Instructions: Call your doctor for follow-up. The name of your doctor is located on your insurance card issued to you by [employer] Print Language: Kittitian Disposition Disposition: Home, Self Care What to do if you have Problems For any increased pain, shortness of breath, bleeding, nausea or vomiting, chestpain, or any unexpected problems, contact your Primary Care Provider. Call [facility] ([phone]) or report to the closest Emergency Room. Call 911 if necessary. 04/21/25 1309 <Electronically signed by Ar Calle MD> Cosigner Signature (if applicable): CC: No Primary Care Physician ~ Signed [facility] Work Phone: Evaluation note* Diagnosis Onset Date Resolution Status Abdominal pain resolved Diarrhea resolved Gastroparesis resolved Hyperglycemia resolved [facility] Work Phone: Evaluation note* Diagnosis Onset Date Resolution Status Abdominal pain resolved Diarrhea resolved Gastroparesis resolved Hyperglycemia resolved Acute diarrhea acute Generalized weakness acute Transient hypotension acute [facility] Work Phone: Evaluation note* Diagnosis Onset Date Resolution Status Abdominal pain resolved Diarrhea resolved Gastroparesis resolved Hyperglycemia resolved Acute diarrhea resolved Generalized weakness resolve d Transient hypotension resolv ed [facility] Work Phone: Evaluation note* Diagnosis Onset Date Resolution Status Acute diarrhea resolved Generalized weakness resolve d Transient hypotension resolv ed [facility] Work Phone: Evaluation noteNo assessment information available [facility] Work Phone: Evaluation note* Diagnosis Bilateral impacted cerumen- Primary Impacted cerumen documented [facility] encounter [facility] Diagnosis Bilateral impacted cerumen- Primary Impacted cerumen documented in this encounter [facility]* Diagnosis Eustachian tube dysfunction, bilateral- Primary [facility] Work Phone: Hospital Discharge instructionsWUniversity [facility] Work Phone: [facility] Discharge instructions Additional Instructions 1. The name of your doctor is located on your insurance card issued to you from [facility] 2. Increase fluid intake today 3. You need to take your medication as prescribed and you need to be compliant with your dietWUniversity [facility]als [facility] Work Phone: Hospital Discharge instructions Additional Instructions Blood glucose 250. Labs stable EKG normal. Continue oral fluids. Follow-up with your doctor to restart heart your medications.[facility] Work Phone: Hospital Discharge instructions Additional Instructions Laboratory studies stable glucose 340s with no signs of DKA. Insulin with improvement down to 130s. Continue oral fluids for hydration. Follow-up with your doctor. Return if worsening symptoms.[facility] Work Phone: Hospital Discharge instructions Additional Instructions Pepto-Bismol will turn his stools black. This is an expected side effect of that medication, you are testing negative for blood, so likely due to that medication. If you take it in the future and to turn your stool black temporarily, you do not need to be concerned. If you see blood return to the ER.[facility] Work Phone: Hospital Discharge instructions Additional Instructions Your CT showed no broken bones. Use ice and take fbit-bwb-tmcbynp Tylenol and Motrin as needed for pain.[facility] Work Phone: Hospital Discharge instructions Additional Instructions Your CT scan showed no sign of bowel blockage. It did show changes consistent with constipation . Take MiraLAX as directed every day to prevent these recurrent issues . please keep yourself well-hydrated and continue to take your diabetic medication as directed. Return to the ER should you have any further concerns.[facility] Work Phone: Hospital Discharge instructions Additional Instructions When you get home drink half the bottle of magnesium citrate. If you do not have a bowel movement in 4 hours finished the bottle. Once the magnesium citrate is stimulated bowel movement continue to the MiraLAX daily to help with recurrent bowel movements and resolve your constipation.[facility] Work Phone: Hospital Discharge instructions Additional [...] the ER should you have any further concernsWooSelect [facility] Work Phone: Hospital Discharge instructions Additional Instructions Thank you for trusting us with your care today! Please take Tylenol (2 pills, 650 mg), ibuprofen (2 pills, 400 mg) every 6 hours as needed for pain and fever control. Please return to the emergency department if your symptoms change or worsen. Please follow with your primary care physician for further outpatient evaluation and management.[facility] Work Phone: Hospital Discharge instructions Additional Instructions Call your doctor for follow-up. The name of your doctor is located on your insurance card issued to you by [facility] Work Phone: Reason for referral (narrative)No reason for referral information availableThe [facility] Work Phone: Hospital Course * Zahira [...] DISCHARGE MEDICATIONS: Jerald Yoder Home Medication Instructions IFEOMA:[id number] Printed on:10/06/19 1522 Medication Information aspirin 81 MG tablet Take [...] Complexity: follow up within 7-14 calendar days (85365) [] Severe Complexity: follow up within 7 calendar days (83336) FOLLOW UP TESTING, PENDING RESULTS OR REFERRALS [...] at most local grocery stores, pharmacies, and [employer]-stores. ? If you have any questions about [...] be monitored and followed by the diet quality assurance technician. 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 Advance Directives and Living Will Power of Casing In Line Setter Latest Code Status on File Code Status Date Activated Date Inactivated Comments Full Code 10/06/2019 11:12 AM Full Code 10/05/2019 5:27 PM 10/06/2019 11:12 AM Advance Directive Response Recorded Date/ Time Advance Directives No November 30, 2016 10:29am Living Will No March 02, 2022 7: 27pm Power of Casing In Line Setter No March 02, 2022 7:27pm Advance Directive Response Recorded Date/ Time Advance Directives No November 30, 2016 10:29am Living Will No March 19, 2022 5 :35pm Power of Casing In Line Setter No March 19, 2022 5:35pm Advance Directive Response Recorded Date/ Time Advance Directives No November 30, 2016 10:29am Living Will No March 19, 2022 1 1:38pm Power of Casing In Line Setter No March 19, 2022 11:38pm Advance Directive Response Recorded Date/ Time Advance Directives No November 30, 2016 10:29am Living Will No April 26, 2022 2:33pm Power of Casing In Line Setter No April 26 2:33pm Advance Directive Response Recorded Date/ Time Advance Directives No November 30, 2016 10:29am Living Will No May 26, 2022 1:38am Power of Casing In Line Setter No May 26 1:38am Advance Directive Response Recorded Date/ Time Advance Directives No November 30, 2016 10:29am Living Will No July 02 9:45pm Power of Casing In Line Setter No July 02, 2022 9:45pm Advance Directive Response Recorded Date/ Time Advance Directives No November 30, 2016 10:29am Living Will No August 07 6:50pm Power of Casing In Line Setter No August 07 6:50pm Advance Directive Response Recorded Date/ Time Advance Directives No November 30, 2016 9:29am Living Will No September 18 10:57am Power of Casing In Line Setter No September 18, 2022 10:57am Advance Directive Response Recorded Date/ Time Advance Directives No November 30, 2016 9:29am Living Will No November 25 2:07pm Power of Casing In Line Setter No November 25, 2022 2:07pm Advance Directive Response Recorded Date/ Time Advance Directives No November 30, 2016 9:29am Living Will No December 10, 2 023 9:57am Power of Casing In Line Setter No December 10, 2022 9:57am Advance Directive Response Recorded Date/ Time Advance Directives No November 30, 2016 9:29am Living Will No December 11, 2 023 4:20pm Power of Casing In Line Setter No December 11, 2022 4:20pm Advance Directive Response Recorded Date/ Time Advance Directives No November 30, 2016 10:29am Living Will No January 18, 2023 8:03am Power of Casing In Line Setter No January 18 8:03am Advance Directive Response Recorded Date/ Time Advance Directives No November 30, 2016 10:29am Living Will No March 07, 2023 1: 12am Power of Casing In Line Setter No March 07, 2023 1:12am Advance Directive Response Recorded Date/ Time Advance Directives No November 30, 2016 10:29am Living Will No May 12, 2023 3:57pm Power of Casing In Line Setter No May 12 3:57pm Advance Directive Response Recorded Date/ Time Advance Directives No November 30, 2016 10:29am Living Will No August 26 5:10am Power of Casing In Line Setter No August 26, 2023 5:10am Advance Directive Response Recorded Date/ Time Advance Directives No November 30, 2016 9:29am Living Will No September 29, 2 023 8:45pm Power of Casing In Line Setter No September 29, 2023 8:45pm Advance Directive Response Recorded Date/ Time Advance Directives No November 30, 2016 9:29am Living Will No September 30 11:40pm Power of Casing In Line Setter No September 30, 2023 11:40pm Advance Directive Response Recorded Date/ Time Advance Directives No November 30, 2016 9:29am Living Will No November 22 2:25pm Power of Casing In Line Setter No November 22, 2023 2:25pm Advance Directive Response Recorded Date/ Time Advance Directives No November 30, 2016 9:29am Living Will No December 08 12:56pm Power of Casing In Line Setter No December 08, 2023 12:56pm Advance Directive Response Recorded Date/ Time Advance Directives No November 30, 2016 9:29am Living Will No December 18 4:23pm Power of Casing In Line Setter No December 18, 2023 4:23pm Advance Directive Response Recorded Date/ Time Advance Directives No November 30, 2016 9:29am Living Will No December 25 8:47am Power of Casing In Line Setter No December 25, 2023 8:47am Advance Directive Response Recorded Date/ Time Advance Directives No November 30, 2016 10:29am Living Will No December 25 9:47am Power of Casing In Line Setter No December 25, 2023 9:47am Advance Directive Response Recorded Date/ Time Advance Directives No November 30, 2016 10:29am Living Will No January 26, 2024 11:41pm Power of Casing In Line Setter No January 25 11:41pm Advance Directive Response Recorded Date/ Time Advance Directives No November 30, 2016 10:29am Living Will No February 07, 2024 7:17pm Power of Casing In Line Setter No February 06 7:17pm Advance Directive Response Recorded Date/ Time Advance Directives No November 30, 2016 10:29am Living Will No March 08, 2024 6: 24am Power of Casing In Line Setter No March 08, 2024 6:24am Advance Directive Response Recorded Date/ Time Advance Directives No November 30, 2016 10:29am Living Will No March 09, 2024 1 :35am Power of Casing In Line Setter No March 09, 2024 1:35am Advance Directive Response Recorded Date/ Time Living Will No October 19 4:56am Do you have a Healthcare Power of Casing In Line Setter? No October 19, 2024 4:56am Living Will No December 20 6:56pm Do you have a Healthcare Power of Casing In Line Setter? No December 20, 2024 6:56pm Living Will No October 30 1:19am Do you have a Healthcare Power of Casing In Line Setter? No October 30, 2024 1:19am Living Will No November 27 2:38pm Do you have a Healthcare Power of Casing In Line Setter? No November 27, 2024 2:38pm Living Will No December 08 1:33pm Do you have a Healthcare Power of Casing In Line Setter? No December 08, 2024 1:33pm Living Will No December 27, 025 2:11am Do you have a Healthcare Power of Casing In Line Setter? No December 27, 2024 2:11am Living Will No February 16, 2025 4:01am Do you have a Healthcare Power of Casing In Line Setter? No February 16, 2025 4:01am Advance Directives No November 30, 2016 10:29am Advance Directive Response Recorded Date/ Time Living Will No December 20 025 6:56pm Do you have a Healthcare Power of Casing In Line Setter? No December 20, 2024 6:56pm Living Will No November 27 2:38pm Do you have a Healthcare Power of Casing In Line Setter? No November 27, 2024 2:38pm Living Will No December 08 1:33pm Do you have a Healthcare Power of Casing In Line Setter? No December 08, 2024 1:33pm Living Will No December 27, 2 025 2:11am Do you have a Healthcare Power of Casing In Line Setter? No December 27, 2024 2:11am Living Will No February 16, 2025 4:01am Do you have a Healthcare Power of Casing In Line Setter? No February 16, 2025 4:01am Do you have a Healthcare Power of Casing In Line Setter? No March 26, 2025 9:53pm Advance Directives No November 30, 2016 10:29am Advance Directive Response Recorded Date/ Time Living Will No December 27 025 2:11am Do you have a Healthcare Power of Casing In Line Setter? No December 27, 2024 2:11am Living Will No February 16, 2025 4:01am Do you have a Healthcare Power of Casing In Line Setter? No February 16, 2025 4:01am Do you have a Healthcare Power of Casing In Line Setter? No March 26, 2025 9:53pm Do you have a Healthcare Power of Casing In Line Setter? No April 21, 2025 10:50am Advance Directives No November 30, 2016 10:29am Advance Directive Response Recorded Date/ Time Living Will No February 16, 2025 4:01am Do you have a Healthcare Power of Casing In Line Setter? No February 16, 2025 4:01am Do you have a Healthcare Power of Casing In Line Setter? No March 26, 2025 9:53pm Do you have a Healthcare Power of Casing In Line Setter? No April 21, 2025 10:50am Advance Directives No November 30, 2016 10:29am Summary Purpose Family History No Family History Records Found Relationship Condition Age at Onset Recorded Date/T yaz Unknown Family History?Heart Disease, Pulmonary Disease Unknown October 31, 2019 7:47pm Family History?Unknown Unknown March 062016 1:05am Family History?Unknown Unknown 2019 7:47pm Additional Family Hi story?No heart disease Unknown September 01, 2017 7:47pm Relationship Condition Age at Onset Recorded Date/T yaz Unknown Family History?Heart Disease, Pulmonary Disease Unknown October 31, 2019 6:47pm Family History?Unknown Unknown March 062016 12:05am Family History?Unknown Unknown 2019 6:47pm Additional Family Hi story?No heart [...] pain, restless legs March 26, 2025 8:08pm Chief Complaint Admit Date LUGO WHEN I PEE December 26, 2024 11:50pm doesn't feel good February 16, 2025 4:0 1am back pain, restless legs March 26, 2025 8:08pm FALL April 21, 2025 10:5 0am Chief Complaint Admit Date doesn't feel good February 16, 2025 4:0 1am back pain, restless legs March 26, 2025 8:08pm FALL April 21, 2025 10:5 0am Additional Source Comments (unrecognized sect ion and content) No Status Records FoundNo Status Records FoundNo Status Records Found INFORMATION SOURCE (unrecogn ized section and content) DATE CREATED AUTHOR 10/14/2019 [facility] DATE CREATED AUTHOR AUTHOR'S ORGANIZ ATION 12/16/2024 [facility] DATE CREATED AUTHOR AUTHOR'S ORGANIZ ATION 05/02/2025 [facility] Goals (unrecognized section and content) Goals [...] Care Provider Active Dr. Panchito Castillo DO Attending Provider, Emergency Provide r Active Team Status: Inactive Member Role Status Dates Dr. Linden Chavez DO Primary Care Provider Active Dr. Quan Feldman DO Emergency Provider Active Team Status: Inactive Member Role Status Dates Dr. Linden Chavez DO Primary Care Provider Active Dr. Quan Feldman DO Attending Provider, Emergency P rovider Active Team Status: Inactive Member Role Status Dates Dr. Linden Chavez DO Primary Care Provider Active Dr. Ar Calle MD Attending Provider, Emergency Provi cristina Active Team Status: Inactive Member Role Status Dates Dr. Linden Chavez DO Primary Care Provider Active Dr. Shania Disla MD Emergency Provider Active Team Status: Inactive Member Role Status Dates Dr. Linden Chvaez DO Primary Care Provider Active Dr. Shania [...] Buster Pereyra DO Attending Provider, Emergency P rovider Active [...] March 26, 2025 End: March 26, 2025 Team Status: Inactive Member Role Status Dates No Primary Care Physician Primary Care Provider Active Start: March 26, 2025 End: March 26, 2025 Dr. Buster Pereyra DO Attending Provider Active Start: March 26, 2025 End: March 26, 2025 Dr. Buster Pereyra DO Emergency Provider Active Start: March 26, 2025 End: March 26, 2025 Team Status: Inactive Member Role Status Dates No Primary Care Physician Primary Care Provider Active Start: April 21, 2025 End: April 21, 2025 Dr. Ar Calle MD Emergency Provider Active Sta rt: April 21, 2025 End: April 21, 2025 Team Status: Active Member Role/Relationship Status Dates Dr. Linden Chavez DO Primary Care Provider Active Team Status: Inactive Member Role/Relationship Status Dates No Primary Care Physician Primary Care Provider Active Start: February 16, 2025 End: February 16, 2025 Dr. Johann Lemons DO Attending Provider Active Start: February 16, 2025 End: February 16, 2025 Dr. Johann Lemons DO Emergency Provider Active Start: February 16, 2025 End: February 16, 2025 Team Status: Inactive Member Role/Relationship Status Dates No Primary Care Physician Primary Care Provider Active Start: March 26, 2025 End: March 26, 2025 Dr. Buster Pereyra DO Attending Provider Active Start: March 26, 2025 End: March 26, 2025 Dr. Buster Pereyra DO Emergency Provider Active Start: March 26, 2025 End: March 26, 2025 Team Status: Inactive Member Role/Relationship Status Dates No Primary Care Physician Primary Care Provider Active Start: April 21, 2025 End: April 21, 2025 Dr. Ar Calle MD Attending Provider Active Sta rt: April 21, 2025 End: April 21, 2025 Dr. Ar Calle MD Emergency Provider Active Sta rt: April 21, 2025 End: April 21, 2025 Team Status: Inactive Member Role/Relationship Status Dates Dr. Linden Chavez DO Primary Care Provider Active Start: April 23, 2025 End: April 23, 2025 Dr. Linden Chavez DO Attending Provider Active Start: April 23, 2025 End: April 23, 2025 Team Status: Active Member Role/Relationship Status Dates Dr. Linden Chavez DO Primary Care Provider Active Start: April 26, 2025 Dr. Linden Chavez DO Attending Provider Active Start: April 26, 2025 Team Status: Inactive Member Role/Relationship Status Dates Dr. Linden Chavez DO Primary Care Provider Active Start: April 26, 2025 End: April 26, 2025 Dr. Linden Chavez DO Attending Provider Active Start: April 26, 2025 End: April 26, 2025 Source Comments (unrecognize d section and content) In the event this informatio n is protected by the Federal Confidentiality of Alcohol and Drug Abuse Patient Records regulations: The Federal rules restrict any use of the information to criminally investigate or prosecute any alcohol or drug abuse patient.[facility] Hospital[facility] the event this information is protected by the Federal Confidentiality of Alcohol and Drug Abuse Patient Records regulations: The Federal rules restrict any use of the information to criminally investigate or prosecute any alcohol or drug abuse patient.[facility] HospitalIn the event this information is protected by the Federal Confidentiality of Alcohol and Drug Abuse Patient Records regulations: The Federal rules restrict any use of the information to criminally investigate or prosecute any alcohol or drug abuse patient.[facility] Reason for Visit (unrecogniz ed section [...] BE BASED ON THE PRIMARY CLINICAL RECORDS. [facility] [employer] [facility]. provides no warranty or guarantee of the accuracy or completeness of information in this document.
--- OUTSIDE RECORDS SUMMARY | 2025-05-03 12:44 | XMS RPT_ITS | CCD ---
Author Organization [facility] Care Team Providers Care Picu Nurse Name Role Phone Unavailable Primary Care Provider [...] Primary Care Provider Unavailabl e Dr. Linden Chavze DO Primary Care Provider [phone] Dr. Live Ashley MD Attending Provider Dr. [...] Propensity to adverse reactions to drug 9 [place], [place] (2 sources) diphenhydrAMINE; Translations: [DIPHENHYDRAMINE] Drug Allergy 1 [place], [place] (8 sources) Penicillins; Translations: [PENICILLINS] Propensity to adverse reactions to drug 1 [place], [place] (20 sources) diphenhydrAMINE; Translations: [diphenhydramine HCl] Drug Allergy 2 [facility] (20 sources) Penicillins Allergy to substance 2 [facility] (3 sources) diphenhydrAMINE Drug Allergy 1 [facility] Work Phone: (3 sources) Penicillins Drug Allergy 1 [facility] Work Phone: (4 sources) Bee Sting; Translations: [BEE STING] Allergy to substance 1 [facility] Work Phone: (1 source) Penicillins Drug allergy (disorder) 5 [facility] (1 source) venom-honey bee Drug allergy (disorder) 5 [facility] Medications Current Medications Medication Drug Class(es) Dates Sig (Normalized) Sig (Original) [id number] 200 actuat albuterol 0.09 mg/actuat metered dose inhaler (3 sources) beta2-Adrenergic Agonist Start: 01-08-2020 take 2 puff(s) by inhalation every four hours as needed albuterol HFA (VENTOLIN HFA) 90 mcg/actuation inhaler Indications: Chronic obstructive pulmonary disease, unspecified COPD type ([facility]) Inhale 2 Puffs as instructed every 4 [...] Indications: Eustachian tube dysfunction, bilateral Use 1 [place] in each nostril once daily. 9.9 mL 12/14/2024 Active gabapentin 100 mg oral capsule (6 sources) Anti-epileptic Agent Start: 04-21-20 take 1 capsule by mouth three times daily Gabapentin 100 mg capsule Active 100 mg PO THREE TIMES A DAY 90 0 April 21, 2025 12:00am Start: 11-12-2019 take 1 capsule by [facility] once daily at bedtime gabapentin (NEURONTIN) 300 mg capsule Indications: Lumbar radiculopathy Take 1 capsule by mouth daily at bedtime for 30 days. 30 capsule 11/12/2019 Active Comment on above: Take 1 capsule by [facility] daily at bedtime for 30 days. glucagon [...] Comment on above: Take 1 capsule by [facility] daily before breakfast for 14 days. 1/2 [...] February 16, 2025 4:06am polyethylene glycol 3350 49066 mg powder for oral solution (12 sources) [...] on 04-26-2025 Bilirubin Ql (U) Negative Negative [facility] Ketones Test strip Ql (U)Ord ered By: Linden Chavez on 04-26-2025 Ketones Ql (U) Negative Negative [facility] Microalb:Creat Ratio,Random URon 04-26-2025 Creatinine [Mass/Vol] 31.70 mg/dL Low 39.00-259.00 [facility] Comment on above: Performed By: #### L 502.0250, L4 #### [facility] [address] [place], [address] MALB:CREAT 564.7 mg/g CRE Normal [facility] Comment on above: Performed By: #### L 502.0250, L4 #### [facility] [address] [place], [address] MICROALBUMIN,UR 179.0 mg/L Normal NO RANGE EST. [facility] Comment on above: Performed By: #### L 502.0250, L4 #### [facility] [address] [place], [address] Nitrite Test strip Ql (U)Ord ered By: Linden Chavez on 04-26-2025 Nitrite Ql (U) Negative Negative [facility] Protein Test strip Ql (U)Ord ered By: Linden Chavez on 04-26-2025 Protein Ql (U) 100 mg/dl High Negative [facility] Random urine creatinine yayo urement (mass/volume)Ordered By: Linden Chavez on 04-26-2025 Creatinine Unsp time (U) [Mass/Vol] 31.70 mg/dL Low 39.00-259.00 [facility] Urinalysis, Routine (Dipstic k)on 04-26-2025 BILIRUBIN URINE Negative Normal Negative [facility] Comment on above: Order Comment: KYRA CLEAN CATCH Performed By: #### L 502.0250, L4 #### [facility] [address] [place], [address] Clarity (U) Cloudy Normal Clear [facility] Comment on above: Order Comment: KYRA CLEAN CATCH Performed By: #### L 502.0250, L4 #### [facility] [address] [place], [address] Color (U) Yellow Normal Yellow [facility] Comment on above: Order Comment: KYRA CLEAN CATCH Performed By: #### L 502.0250, L4 #### [facility] [address] [place], [address] GLUCOSE, UR 1000 mg/dl Abnormal Normal [facility] Comment on above: Order Comment: KYRA CLEAN CATCH Performed By: #### L 502.0250, L4 #### [facility] [address] [place], [address] KETONE UR Negative Normal Negative [facility] Comment on above: Order Comment: KYRA CLEAN CATCH Performed By: #### L 502.0250, L400.2010 #### [facility] [address] [place], [address] LEUK ESTERASE 500 /ul Abnormal Negative [facility] Comment on above: Order Comment: KYRA CLEAN CATCH Performed By: #### L 502.0250, L4 #### [facility] [address] [place], [address] Nitrite Ql (U) Negative Normal Negative [facility] Comment on above: Order Comment: KYRA CLEAN CATCH Performed By: #### L 502.0250, L4 #### [facility] [address] [place], [address] OCCULT BLOOD-UR 150 /ul Abnormal Negative [facility] Comment on above: Order Comment: KYRA CLEAN CATCH Performed By: #### L 502.025, L4 #### [facility] [address] [place], [address] pH UR 7.0 Normal 5.0 - 8.0 [facility] Comment on above: Order Comment: KYRA CLEAN CATCH Performed By: #### L 502.249, L4 #### [facility] [address] [place], [address] PROT DIPSTX 100 mg/dl Abnormal Negative [facility] Comment on above: Order Comment: KYRA CLEAN CATCH Performed By: #### L 502.0250, L400 #### [facility] [address] [place], [address] SP.GR. DIPSTX 1.010 Normal 1.002-1.030 [facility] Comment on above: Order Comment: KYRA CLEAN CATCH Performed By: #### L 502.0250, L4 #### [facility] [address] [place], [place], [address] UROBILI Normal Normal Normal [facility] Comment on above: Order Comment: KYRA CLEAN CATCH Performed By: #### L 502.0250, L400.2010 #### [facility] [address] [place], [place], [address] Urine albumin measurement [facility] detection limit of 20 mg/L or less (mass/volume)Ordered By: Linden Chavez on 04-26-2025 Albumin DL <= 20 mg/L (U) [Mass/Vol] 179.0 mg/L NO RANGE EST. [facility] Urine clarityOrdered By: Noemy Chavez on 04-26-2025 Clarity (U) Cloudy Clear [facility] Urine color determinationOrd ered By: Linden Chavez on 04-26-2025 Color (U) Yellow Yellow [facility] Urine glucose detectionOrder ed By: Linden Chavez on 04-26-2025 Glucose Ql (U) 1000 mg/dl High Normal [facility] Urine leukocyte esterase det ection by dipstickOrdered By: Linden Chavez on 04-26-2025 Leukocyte esterase Test strip Ql (U) 500 /ul High Negative [facility] Urine pHOrdered By: Linden tripathi on 04-26-2025 pH (U) 7.0 [pH] 5.0 - 8.0 [facility] Urine specific gravity measu rementOrdered By: Linden Chavez on 04-26-2025 Specific gravity (U) [Rel density] 1.010 1.002-1.030 [facility] Urine urobilinogen measureme ntOrdered By: Linden Chavez on 04-26-2025 Urobilinogen Ql (U) Normal mg/dl Normal [facility] Celiac Disease Profileon ENDOMYSIAL IGA Negative Normal Negative [facility] Comment on above: Performed By: #### L 501.080 #### [facility] [address] [place], [place], [id number] IMMUNOGLOB A QN 364 mg/dL Normal 61-437 [facility] Comment on above: Result Comment: Perf ormed at: - [facility] [address] [id number] Signal Technician: Rasheed Denney PhD, Phone: [phone] Performed By: #### L 501.080 #### [facility] [address] [place], [address] tTG IGA <2 Normal 0-3 [facility] Comment on above: Result Comment: Nega tive 0 - 3 Weak Positive 4 - 10 Positive >10 Tissue Transglutaminase (tTG) has been identified as the endomysial antigen. Studies have demonstr- ated that endomysial IgA antibodies have over 99% specificity for gluten sensitive enteropathy. Performed By: #### L 501.080 #### [facility] [address] [place], [address] Bilirubin directOrdered By: Linden Chavez on 04-23-2025 Bilirubin.direct [Mass/Vol] 0.16 mg/dL 0.00-0.30 [facility] Bilirubin, totalOrdered By: Linden Chavez on 04-23-2025 Bilirubin [Mass/Vol] 0.40 mg/dL 0.00-1.30 [facility] CRPon 04-23-2025 C-REACTIVE PROT 15.50 mg/L High 0.0-3.0 [facility] Comment on above: Performed By: #### L 501.080 #### [facility] [address] [place], [address] Calculated very low density lipoprotein (VLDL) cholesterol measurementOrdered By: Linden Chavez on 04-23-2025 Calculated very low density lipoprotein (VLDL) cholesterol measurement 37 mg/dL 5-40 [facility] Erythrocyte Sed Rateon 04-23 SED RATE 12 mm/hr Normal 0-20 [facility] Comment on above: Performed By: #### L 501.080 #### [facility] [address] [place], [address] Erythrocyte sedimentation ra teOrdered By: Linden Chavez on 04-23-2025 ESR (Bld) [Velocity] 12 mm/h 0-20 [facility] Hemoglobin A1con 04-23-2025 HbA1c (Bld) [Mass fraction] 11.6 % High <=5.6 [facility] Comment on above: Result Comment: Norm al < 5.7 % Prediabetic 5.7 - 6.4 % Diabetic >or= 6.5 % Please note range changes. Performed By: #### L 501.080 #### [facility] [address] [place], [place], [id number] Hemoglobin A1c percentageOrd ered By: Linden Chavez on 04-23-2025 HbA1c (Bld) [Mass fraction] 11.6 % High <5.7 [facility] Comment on above: Normal < 5.7 % Predi abetic 5.7 - 6.4 % Diabetic >or= 6.5 % Please note range changes. Hepatitis C Antibodyon 04-23 Hepatitis C Ab Non-Reactive Normal Nonreactive [facility] Comment on above: Result Comment: Reac tive: Presumptive evidence of antibodies to HCV. Follow CDC recommendations for supplemental testing. Non-Reactive: Antibodies to HCV were not detected; does not exclude the possibility of exposure to HCV Reactive Results are presumptive evidence of antibodies to HCV. Follow CDC recommendations for supplemental testing. Order confirmation testing: HCV Quant by PCR testing - HCVPCR #[id number] Non Reactive: < 0.8 Equivocal: >/= 0.8 to < 1.0 Reactive: >/= 1.0 The CDC requires that a reactive/equivocal HCV antibody result be sent out for confirmation. HCV Quant by PCR testing. Performed By: #### L 501.080 #### [facility] [address] [place], [place], [address] LDL calc ser/plasOrdered By: Linden Chavez on 04-23-2025 Cholesterol in LDL [Mass/Vol] 100 mg/dL [facility] Comment on above: Sfwpklpvto=121-090 m g/dL & Higher Ngqp=499 mg/dL or greater Laboratory - Chemistry and C hemistry - challengeOrdered By: Linden Chavez on 04-23-2025 AST [Catalytic activity/Vol] 11 U/L <38 [facility] Lipid Profileon 04-23-2025 CHOL:HDL 5.04 Normal [facility] Comment on above: Performed By: #### L 501.080 #### [facility] [address] [place], [address] Cholesterol [Mass/Vol] 171 mg/dL Normal <=200 [facility] Comment on above: Result Comment: Chol esterol level, Desirable <200 mg/dL Borderline high cholesterol 200-239 mg/dL High cholesterol >=240 mg/dL Recommendations of the NCEP Adult Treatment Panel for the following risk-cutoff thresholds for the [place] population. Performed By: #### L 501.080 #### [facility] [address] [place], [address] Cholesterol in HDL [Mass/Vol] 34 mg/dL Low [facility] Comment on above: Result Comment: Adeline onal Cholesterol Education Program (NCEP) guidelines: <40 mg/dL: Low HDL-cholesterol (major risk factor for CHD) >= 60 mg/dL: High HDL-cholesterol (negative risk factor for CHD) HDL-cholesterol is affected by a number of factors, e.g. smoking, exercise, hormones, sex and age. Performed By: #### L 501.080 #### [facility] [address] [place], [address] Cholesterol in LDL [Mass/Vol] 100 mg/dL Normal [facility] Comment on above: Result Comment: Bord qhnfxr=880-740 mg/dL Higher Lexu=564 mg/dL or greater Performed By: #### L 501.080 #### [facility] [address] [place], [address] Cholesterol in VLDL [Mass/Vol] 37 mg/dL Normal 5-40 [facility] Comment on above: Performed By: #### L 501.080 #### [facility] [address] [place], [address] Triglyceride [Mass/Vol] 187 mg/dL Normal [facility] Comment on above: Result Comment: The drugs N-Acetylcysteine and Metamizole may falsely depress this assay. Normal range: <150 mg/dL Borderline High: 150-199 mg/dL High: 200-499 mg/dL Very High: >500 mg/dL Performed By: #### L 501.080 #### [facility] [address] [place], [address] Liver Profileon 04-23-2025 Albumin [Mass/Vol] 3.9 g/dL Normal 3.4-4.8 [facility] Comment on above: Performed By: #### L 501.080 #### [facility] [address] [place], [address] ALK PHOS 102 U/L Normal 40-129 [facility] Comment on above: Performed By: #### L 501.080 #### [facility] [address] [place], [address] ALT [Catalytic activity/Vol] 8 U/L Normal <=46 [facility] Comment on above: Performed By: #### L 501.080 #### [facility] [address] [place], [address] AST [Catalytic activity/Vol] 11 U/L Normal <=37 [facility] Comment on above: Performed By: #### L 501.080 #### [facility] [address] [place], [address] Bilirubin [Mass/Vol] 0.40 mg/dL Normal 0.00-1.30 [facility] Comment on above: Performed By: #### L 501.080 #### [facility] [address] [place], [address] Bilirubin.direct [Mass/Vol] 0.16 mg/dL Normal 0.00-0.30 [facility] Comment on above: Performed By: #### L 501.080 #### [facility] [address] [place], [place], [address] Globulin (S) [Mass/Vol] 3.0 g/dL Normal 2.2-4.2 [facility] Comment on above: Performed By: #### L 501.080 #### [facility] [address] [place], [place], [id number] T PROT 6.9 g/dL Normal 5.9-8.4 [facility] Comment on above: Performed By: #### L 501.080 #### [facility] [address] [place], [address] PSA,Total - Annual Screenon 04-23-2025 PSA,TOT SCREEN 0.35 ng/mL Normal 0.02-4.00 [facility] Comment on above: Result Comment: This test [...] values. Performed By: #### L 501.080 #### [facility] [address] [place], [place], [address] Screening total cholesterol/ high density lipoprotein (HDL) cholesterol ratioOrdered By: Linden Chavez on 04-23-2025 Cholesterol.total/Carol sterol in HDL [Mass ratio] 5.04 {ratio} [facility] Serum globulin measurementOr dered By: Linden Chavez on 04-23-2025 Globulin (S) [Mass/Vol] 3.0 g/dL 2.2-4.2 [facility] Serum or plasma C reactive p rotein measurement (mass/volume)Ordered By: Linden Chavez on 04-23-2025 CRP [Mass/Vol] 15.50 mg/L High 0.0-3.0 [facility] Serum or plasma IgA measurem ent (mass/volume)Ordered By: Linden Chavez on 04-23-2025 IgA [Mass/Vol] 364 mg/dL 61-437 [facility] Comment on above: Performed at: - [address] [id number] Director: Rasheed Denney PhD, Phone: [phone] Serum or plasma alanine wagoner otransferase (ALT) measurementOrdered By: Linden Chavez on 04-23-2025 ALT [Catalytic activity/Vol] 8 U/L <47 [facility] Serum or plasma albumin yayo urement (mass/volume)Ordered By: Linden Chavez on 04-23-2025 Albumin [Mass/Vol] 3.9 g/dL 3.4-4.8 [facility] Serum or plasma alkaline andrzej sphatase measurementOrdered By: Linden Chavez on 04-23-2025 ALP [Catalytic activity/Vol] 102 U/L 40-129 [facility] Serum or plasma cholesterol in HDL measurement (mass/volume)Ordered By: Linden Chavez on 04-23-2025 Cholesterol in HDL [Mass/Vol] 34 mg/dL Low >40 [facility] Comment on above: National Cholesterol Education Program (NCEP) guidelines:<40 mg/dL: Low HDL-cholesterol (major risk factor for CHD)>= 60 mg/dL: High HDL-cholesterol (negative risk factor for CHD)HDL-cholesterol is affected by a number of factors, e.g. smoking, exercise, hormones, sex and age. Serum or plasma cholesterol measurement (mass/volume)Ordered By: Linden Chavez on 04-23-2025 Cholesterol [Mass/Vol] 171 mg/dL <201 [facility] Comment on above: Cholesterol level, D esirable <200 mg/dLBorderline high cholesterol 200-239 mg/dLHigh cholesterol >=240 mg/dLRecommendations of the NCEP Adult Treatment Panel for the following risk-cutoff thresholds for the [place] population. Serum tissue transglutaminas e (tTG) IgA antibody assay (units/volume)Ordered By: Linden Chavez on 04-23-2025 tTG IgA Qn (S) <2 U/mL 0-3 [facility] Comment on above: Negative 0 - 3 Weak Positive 4 - 10 Positive >10 Tissue Transglutaminase (tTG) has been identified as the endomysial antigen. Studies have demonstr- ated that endomysial IgA antibodies have over 99% specificity for gluten sensitive enteropathy. TSH DL <= 0.005 mIU/L QnOrde red By: Linden Chavez on 04-23-2025 TSH Qn 13.600 uIU/mL High 0.300-4.200 [facility] Thyroid Stim Hormone (TSH)on 04-23-2025 TSH 13.600 uIU/mL High 0.300-4.200 [facility] Comment on above: Performed By: #### L 501.080 #### [facility] [address] [place], [address] Total proteinOrdered By: Noemy Chavez on 04-23-2025 Protein [Mass/Vol] 6.9 g/dL 5.9-8.4 [facility] Triglycerides measurementOrd ered By: Linden Chavez on 04-23-2025 Triglyceride [Mass/Vol] 187 mg/dL <199 [facility] Comment on above: The drugs N-Acetylcy steine and Metamizole may falsely depress this assay. Normal range: <150 mg/dLBorderline High: 150-199 mg/dLHigh: 200-499 mg/dLVery High: >500 mg/dL Emergency Department Summary on 04-21-2025 Emergency Department Summary [facility] Medical Records Department [address] [place] [address] Emergency Department Summary 04/21/25 MR#: [id number] Acct: [id number] Name: JERALD YODER Rep #: [id number] : 1960 65 From: Ar Calle MD [...] 96 9 (more content not included)... Normal [facility] Knee 4 or More Viewson 04-21 Knee 4 or More Views [facility] Imaging Services [address] [place] [address] Knee 4 or More Views MR#: [id number] Acct: [id number] Name: JERALD YODER Rep #: [id number] : 1960 M 65 From: Domenico Dewey DO PCP: Care Physician,No Primary Status: REG ER Study: Knee 4 or More Views Date of Exam: 04/21/25 Exam# [id number] Ordering Dr: Ar Calle MD PROCEDURE: KNEE 4 OR MORE VIEWS 04/21/2025 REASON FOR EXAM: INJURY/PAIN Initial encounter TECHNIQUE: KNEE 4 OR MORE VIEWS COMPARISON: None. FINDINGS: Bones: No fracture. No dislocation. Joints: Cartilage thinning and periarticular osteophytes indicate osteoarthritis Effusion: None. Soft tissues: Unremarkable Other: RAD/Knee 4 or More Views IMPRESSION: No acute process detected. Reading [facility] CC: Dr. Ar Calle MD; No Primary Care Physician Powered Bridge Specialist: Signed Normal [facility] Emergency Department Summary on 03-26-2025 Emergency Department Summary [facility] Medical Records Department [address] [place] [address] Emergency Department Summary 03/26/25 MR#: [id number] Acct: [id number] Name: JERALD YODER Rep #: [id number] : 1960 64 From: Buster Pereyra DO PCP: Care Physician,No Primary Status:DEP ER Location: ED HPI History of Present Illness Chief [facility] Medical History (Updated 03/26/25 @ 22:22 by [...] of health (more content not included)... Normal [facility] Urine Cultureon 02-18-2025 [facility] Staphylococcus aureu s [place] Count >100,000 Staphylococcus aureus: REACTION cefOXitin Susc Islt Doxycycline Islt NASRIN <=0.5 S Clindamycin.induced Susc Islt NEG Gentamicin Islt NASRIN <=0.5 S Linezolid Islt NASRIN 2 S Moxifloxacin Islt NASRIN <=0.25 S Nitrofurantoin Islt NASRIN <=16 S Oxacillin Susc Islt 0.5 S Tetracycline Islt NASRIN <=1 S TMP SMX Islt NASRIN <=10 S Vancomycin Islt NASRIN 1 S Normal [facility] Comment on above: Performed By: #### M 100.9642 ####[facility] [id number] [place], [place], [id number] Absolute lymphocyte countOrd ered By: Johann Lemons on 02-16-2025 Lymphocytes Auto (Unsp spec) [#/Vol] 1.39 10*3/uL 0.83-4.51 [facility] Absolute neutrophil countOrd ered By: Johann Lemons on 02-16-2025 Neutrophils (Bld) [#/Vol] 6.4 10*3/uL 2.0-7.7 [facility] Absolute neutrophil count 6.4 X10^3/uL 2.0-7.7 [facility] Anion gap [Moles/Vol]Ordered By: Johann Lemons on 02-16-2025 Anion gap in Serum or Plasma 10 - [facility] Anion gap in Serum or Plasma Ordered By: Johann Lemons on 02-16-2025 Anion gap [Moles/Vol] 10 mmol/L 03-14 [facility] Automated lymphocyte count a s percentage of total leukocytesOrdered By: Johann Lemons on 02-16-2025 Lymphocytes/100 WBC Auto (Unsp spec) 16.0 % Low [facility] BUN/creatinine ratioOrdered By: Johann Lemons on 02-16-2025 Urea nitrogen/Creatinine [Mass ratio] 16.0 mg/mg 08-19 [facility] BUN/creatinine ratio 16.0 RATIO 08-19 [facility] Base excess Calc (BldV) [Mol es/Vol]Ordered By: Johann Lemons on 02-16-2025 Venous blood base excess measurement 8 mmol/L High -1.0-3.5 [facility] Basic Metabolic Profile (BMP )on 02-16-2025 BUN/CRE 16.0 RATIO Normal 08-19 [facility] Comment on above: Performed By: #### L 100.0100, L500.2500, L501.6901 ####[facility] [address] [place], [address] Calcium [Mass/Vol] 9.2 mg/dL Normal 7.6-11.0 [facility] Comment on above: Performed By: #### L 100.0100, L500.2500, L501.6901 ####[facility] [address] [place], [address] Chloride [Moles/Vol] 94 mmol/L Low 98-108 [facility] Comment on above: Performed By: #### L 100.0100, L500.2500, L501.6901 ####[facility] [address] [place], [address] CO2 [Moles/Vol] 27.2 mmol/L Normal 21.0-32.0 [facility] Comment on above: Performed By: #### L 100.0100, L500.2500, L501.6901 ####[facility] [address] [place], [address] Creatinine [Mass/Vol] 0.90 mg/dL Normal 0.70-1.20 [facility] Comment on above: Performed By: #### L 100.0100, L500.2500, L501.6901 ####[facility] [address] [place], [address] ECRCL 104.50 ml/min Normal 50-250 [facility] Comment on above: Performed By: #### L 100.0100, L500.2500, L501.6901 ####[facility] [address] [place], [address] GAP 10 Normal 5-15 [facility] Comment on above: Performed By: #### L 100.0100, L500.2500, L501.6901 ####[facility] [address] [place], [address] GFR/1.73 sq M.predicted among non-blacks MDRD (S/P/Bld) [Vol rate/Area] 96 mL/min/{1.73_m2} Normal >60 [facility] [facility] Comment on above: Result Comment: mL/m in/1.73m2 CKD-EPI Creatinine Equation (2020) Performed By: #### L 100.0100, L500.2500, L501.6901 ####[facility] [id number] [place], [address] Glucose [Mass/Vol] 453 mg/dL Invalid Interpretation Code 70-99 [facility] Comment on above: Result Comment: Crit ical Result(s) Called at 0505: by:?? NBURNS TO ENRRIQUE Results read back by same. Performed By: #### L 100.0100, L500.2500, L501.6901 ####[facility] [address] [place], [address] Potassium [Moles/Vol] 3.9 mmol/L Normal 3.3-5.1 [facility] Comment on above: Performed By: #### L 100.0100, L500.2500, L501.6901 ####[facility] [address] [place], [address] Sodium [Moles/Vol] 131 mmol/L Low 133-145 [facility] Comment on above: Performed By: #### L 100.0100, L500.2500, L501.6901 ####[facility] [address] [place], [address] Urea nitrogen [Mass/Vol] 14 mg/dL Normal 4-19 [facility] Comment on above: Performed By: #### L 100.0100, L500.2500, L501.6901 ####[facility] [address] [place], [address] Basophil percentageOrdered B y: Johann Cristo on 02-16-2025 Basophils/100 WBC (Bld) 0.5 % 0-1 [facility] Basophil percentage 0.5 % 0-1 [facility] Bedside Glucoseon 02-16-2025 FINGERSTICK GLU 340 mg/dL High 74-106 [facility] Comment on above: Result Comment: TAYLOR GEMENT OF PATIENT CARE PER NURSING PROTOCOL Performed By: #### L 501.080 #### [facility] [address] [place], [address] FINGERSTICK GLU 341 mg/dL High 74-106 [facility] Comment on above: Result Comment: TAYLOR GEMENT OF PATIENT CARE PER NURSING PROTOCOL Performed By: #### L 501.080 #### [facility] [address] [place], [address] FINGERSTICK GLU 414 mg/dL High 74-106 [facility] Comment on above: Result Comment: TAYLOR SEALS OF PATIENT CARE PER NURSING PROTOCOL Performed By: #### L 100.0100, L500.4050 #### [facility] [address] [place], [address] Beta hydroxybutyrate [Mass/V ol]Ordered By: Johann Lemons on 02-16-2025 Beta-hydroxybutyrate 0.1 mmol/L 0.0-0.3 [facility] Beta-Hydroxbytyrateon 2024 BETA-HYDROXYBUT 0.1 mmol/L Normal 0.0-0.3 [facility] Comment on above: Performed By: #### L 100.0100, L500.2500, L501.6901 ####[facility] [address] [place], [address] Beta-hydroxybutyrateOrdered By: Johann Lemons on 02-16-2025 Beta hydroxybutyrate [Mass/Vol] 0.1 mmol/L 0.0-0.3 [facility] Bilirubin Test strip Ql (U)O rdered By: Johann Lemons on 02-16-2025 Bilirubin Ql (U) Negative Negative [facility] CBC W/Diff, Automatedon 01-29 Absolute Lymph 1.39 X10 3/uL Normal 0.83-4.51 [facility] Comment on above: Performed By: #### L 100.0100, L500.2500, L501.6901 #### [facility] [address] [place], [address] Absolute Neut 6.4 X10 3/uL Normal 2.0-7.7 [facility] Comment on above: Performed By: #### L 100.0100, L500.2500, L501.6901 #### [facility] [address] [place], [address] Basophils/100 WBC (Bld) 0.5 % Normal 0-1 [facility] Comment on above: Performed By: #### L 100.0100, L500.2500, L501.6901 #### [facility] [address] [place], [address] Eosinophils/100 WBC (Bld) 2.4 % Normal 0-5 [facility] Comment on above: Performed By: #### L 100.0100, L500.2500, L501.6901 #### [facility] [address] [place], [address] Erythrocyte distribution width (RBC) [Ratio] 12.9 % Normal 11.6-14.6 [facility] Comment on above: Performed By: #### L 100.0100, L500.2500, L501.6901 #### [facility] [address] [place], [address] Hematocrit (Bld) [Volume fraction] 34.5 % Low 40-54 [facility] Comment on above: Performed By: #### L 100.0100, L500.2500, L501.6901 #### [facility] [address] [place], [address] Hemoglobin (Bld) [Mass/Vol] 12.2 g/dL Low 13.0-16.5 [facility] Comment on above: Performed By: #### L 100.0100, L500.2500, L501.6901 #### [facility] [address] [place], [address] IG% 0.500 Normal 0.0-0.9 [facility] Comment on above: Result Comment: IG% - Immature Granulocytes (promyelocytes, myelocytes and metamyelocytes) > 1% indicates that a LEFT SHIFT is Present. Performed By: #### L 100.0100, L500.2500, L501.6901 #### [facility] [address] [place], [address] Lymphocytes/100 WBC (Bld) 16.0 % Low 19-41 [facility] Comment on above: Performed By: #### L 100.0100, L500.2500, L501.6901 #### [facility] [address] [place], [address] MCH (RBC) [Entitic mass] 28.0 pg Normal 27.0-32.0 [facility] Comment on above: Performed By: #### L 100.0100, L500.2500, L501.6901 #### [facility] [address] [place], [address] MCHC (RBC) [Mass/Vol] 35.4 g/dL Normal 32-36 [facility] Comment on above: Performed By: #### L 100.0100, L500.2500, L501.6901 #### [facility] [address] [place], [address] MCV (RBC) [Entitic vol] 79.3 fL Low 80-94 [facility] Comment on above: Performed By: #### L 100.0100, L500.2500, L501.6901 #### [facility] [address] [place], [address] Monocytes/100 WBC (Bld) 7.1 % Normal 0-10 [facility] Comment on above: Performed By: #### L 100.0100, L500.2500, L501.6901 #### [facility] [address] [place], [address] Neutrophils/100 WBC (Bld) 73.5 % High 47-70 [facility] Comment on above: Performed By: #### L 100.0100, L500.2500, L501.6901 #### [facility] [address] [place], [address] Nucleated RBC (Bld) [#/Vol] 0 10*3/uL Normal 0-5 [facility] Comment on above: Performed By: #### L 100.0100, L500.2500, L501.6901 #### [facility] [address] [place], [address] Platelet mean volume (Bld) [Entitic vol] 8.8 fL Normal 6.2-12.0 [facility] Comment on above: Performed By: #### L 100.0100, L500.2500, L501.6901 #### [facility] [address] [place], [address] Platelets (Bld) [#/Vol] 230 10*3/uL Normal 150-450 [facility] Comment on above: Performed By: #### L 100.0100, L500.2500, L501.6901 #### [facility] [address] [place], [address] RBC (Bld) [#/Vol] 4.35 10*6/uL Low 4.6-6.2 [facility] Comment on above: Performed By: #### L 100.0100, L500.2500, L501.6901 #### [facility] [address] [place], [address] RDW SD 36.9 fl Normal 35.1-43.9 [facility] Comment on above: Performed By: #### L 100.0100, L500.2500, L501.6901 #### [facility] [address] [place], [address] WBC (Bld) [#/Vol] 8.7 10*3/uL Normal 4.4-11.0 [facility] Comment on above: Performed By: #### L 100.0100, L500.2500, L501.6901 #### [facility] [address] [place], [address] CO2 (BldV) [Moles/Vol]Ordere d By: Johann Lemons on 02-16-2025 CO2 [Moles/Vol] 34 mmol/L High 23-33 [facility] Venous blood total carbon dioxide measurement 34 mmol/L High 23-33 [facility] CO2 (BldV) [Partial pressure ]Ordered By: Johann Lemons on 02-16-2025 Venous blood partial pressure of carbon dioxide measurement 54.5 mmHg High 41-51 [facility] Calcium [Mass/Vol]Ordered By : Johann Lemons on 02-16-2025 Serum or plasma calcium measurement (mass/volume) 9.2 mg/dL 7.6-11.0 [facility] Carbon dioxide, total [Moles /volume] in Central venous bloodOrdered By: Johann Lemons on 02-16-2025 CO2 [Moles/Vol] 27.2 mmol/L 21.0-32.0 [facility] Carbon dioxide, total [Moles/volume] in Central venous blood 27.2 mmol/L 21.0-32.0 [facility] Chest PA and Lateralon 02-16 Chest PA and Lateral [facility] Imaging Services [address] [place] [address] Chest PA and Lateral MR#: [id number] Acct: [id number] Name: JERALD YODER Rep #: [id number] : 1960 M 64 From: Tacho Alcaraz MD PCP: Care Physician,No Primary Status: REG ER Study: Chest PA and Lateral Date of Exam: 02/16/25 Exam# [id number] Ordering Dr: Johann Lemons DO PROCEDURE: CHEST [...] No evidence of acute disease. Reading Location: [facility] CC: Johann Lemons DO; No Primary Care Physician Powered Bridge Specialist: Signed Normal [facility] Chloride assayOrdered By: Julia Lemons on 02-16-2025 Chloride [Moles/Vol] 94 mmol/L Low 98-108 [facility] Chloride assay 94 mmol/L Low 98-108 [facility] Clarity (U)Ordered By: Roland Lemons on 02-16-2025 Urine clarity Turbid Clear [facility] Color (U)Ordered By: Johann Lemons on 02-16-2025 Urine color determination Yellow Yellow [facility] Creatinine [Mass/Vol]Ordered By: Johann Lemons on 02-16-2025 Serum creatinine measurement (mass/volume) 0.90 mg/dL 0.70-1.20 [facility] Emergency Department Summary on 02-16-2025 Emergency Department Summary [facility] Medical Records Department [address] [place] [address] Emergency Department Summary 02/16/25 MR#: [id number] Acct: [id number] Name: JERALD YODER Rep #: [id number] : 1960 64 From: Johann Lemons DO [...] symptoms and therefore comes in for evaluation [facility] Medical History (Updated 02/16/25 @ 07:40 by [...] mucous membranes (more content not included)... Normal [facility] Eosinophil percentageOrdered By: Johann Lemons on 02-16-2025 Eosinophils/100 WBC (Bld) 2.4 % 0-5 [facility] Eosinophil percentage 2.4 % 0-5 [facility] Erythrocyte distribution wid th (RBC) [Ratio]Ordered By: Johann Lemons on 02-16-2025 Erythrocyte distribution width ratio 12.9 % 11.6-14.6 [facility] Erythrocyte distribution width standard deviation 36.9 fl 35.1-43.9 [facility] Erythrocyte distribution wid th ratioOrdered By: Johann Lemons on 02-16-2025 Erythrocyte distribution width (RBC) [Ratio] 12.9 % 11.6-14.6 [facility] Erythrocyte distribution wid th standard deviationOrdered By: Johann Lemons on 02-16-2025 Erythrocyte distribution width (RBC) [Ratio] 36.9 fl 35.1-43.9 [facility] Estimation of creatinine edinson aranceOrdered By: Johann Lemons on 02-16-2025 Estimation of creatinine clearance 104.50 ml/min 50-250 [facility] GFR/1.73 sq M.predicted mari g non-blacks MDRD (S/P/Bld) [Vol rate/Area]Ordered By: Johann Lemons on 02-16-2025 Glomerular filtration rate (GFR) estimation/1.73 sq m using serum, plasma, or whole b 96 >60 [facility] Glomerular filtration rate ( GFR) estimation/1.73 sq m using serum, plasma, or whole bOrdered By: Johann Lemons on 02-16-2025 GFR/1.73 sq M.predicted among non-blacks MDRD (S/P/Bld) [Vol rate/Area] 96 mL/min/{1.73_m2} >60 [facility] Comment on above: mL/min/1.73m2 CKD-EP I Creatinine Equation (2020) Glucose Ql (U)Ordered By: Julia Lemons on 02-16-2025 Urine glucose detection 1000 mg/dl High Normal [facility] Glucose [Mass/Vol]Ordered By : Johann Lemons on 02-16-2025 Serum glucose measurement (mass/volume) 453 mg/dL High 70-99 [facility] Glucose measurement at bedsi deOrdered By: Johann Lemons on 02-16-2025 Glucose [Mass/Vol] 340 mg/dL High 74-106 [facility] Comment on above: MANAGEMENT OF PATIEN T CARE PER NURSING PROTOCOL Glucose measurement at bedside 341 mg/dL High 74-106 [facility] Hematocrit Auto (Bld) [Volum e fraction]Ordered By: Johann Lemons on 02-16-2025 Hematocrit (Bld) [Volume fraction] 34.5 % Low 40-54 [facility] Automated blood hematocrit (percentage) 34.5 % Low 40-54 [facility] Hemoglobin measurementOrdere d By: Johann Lemons on 02-16-2025 Hemoglobin (Bld) [Mass/Vol] 12.2 g/dL Low 13.0-16.5 [facility] Hemoglobin measurement 12.2 g/dL Low 13.0-16.5 [facility] Immature granulocytes/100 WB C Auto (Bld)Ordered By: Johann Lemons on 02-16-2025 Immature granulocytes/100 WBC (Bld) 0.500 % 0.0-0.9 [facility] Comment on above: IG% - Immature Granu locytes (promyelocytes, myelocytes and metamyelocytes) > 1% indicates that a LEFT SHIFT is Present. Automated immature granulocyte percentage 0.500 % 0.0-0.9 [facility] Ketones Test strip Ql (U)Ord ered By: Johann Lemons on 02-16-2025 Ketones Ql (U) Negative Negative [facility] Leukocyte esterase Test stri p Ql (U)Ordered By: Johann Lemons on 02-16-2025 Urine leukocyte esterase detection by dipstick 500 /ul High Negative [facility] Lymphocytes Auto (Unsp spec) [#/Vol]Ordered By: Johann Lemons on 02-16-2025 Absolute lymphocyte count 1.39 X10^3/uL 0.83-4.51 [facility] Lymphocytes/100 WBC Auto (Un sp spec)Ordered By: Johann Lemons on 02-16-2025 Automated lymphocyte count as percentage of total leukocytes 16.0 % Low 19-41 [facility] MCV (RBC) [Entitic vol]Order ed By: Johann Lemons on 02-16-2025 MCV (mean corpuscular volume) determination 79.3 fL Low 80-94 [facility] MCV (mean corpuscular volume ) determinationOrdered By: Johann Lemons on 02-16-2025 MCV (RBC) [Entitic vol] 79.3 fL Low 80-94 [facility] Mean corpuscular hemoglobin (MCH) determinationOrdered By: Johann Lemons on 02-16-2025 MCH (RBC) [Entitic mass] 28.0 pg 27.0-32.0 [facility] Mean corpuscular hemoglobin (MCH) determination 28.0 pg 27.0-32.0 [facility] Mean corpuscular hemoglobin concentration (MCHC) determinationOrdered By: Johann Lemons on 02-16-2025 MCHC (RBC) [Mass/Vol] 35.4 g/dL 32-36 [facility] Mean corpuscular hemoglobin concentration (MCHC) determination 35.4 g/dL 32-36 [facility] Mean platelet volume determi nationOrdered By: Johann Lemons on 02-16-2025 Platelet mean volume (Bld) [Entitic vol] 8.8 fL 6.2-12.0 [facility] Mean platelet volume determination 8.8 fl 6.2-12.0 [facility] Microscopic analysis of urin e for red blood cells (RBC)Ordered By: Johann Lemons on 02-16-2025 Microscopic analysis of urine for red blood cells (RBC) 0 SEEN /hpf 0-5 [facility] Microscopic analysis of urine for red blood cells (RBC) 0 SEEN /hpf [facility] Monocyte percentageOrdered B y: Johann Lemons on 02-16-2025 Monocytes/100 WBC (Bld) 7.1 % 0-10 [facility] Monocyte percentage 7.1 % 0-10 [facility] Mucus LM Ql (Urine sed)Order ed By: Johann Lemons on 02-16-2025 Mucus Ql (Urine sed) 0 SEEN /hpf [facility] Neutrophil percentageOrdered By: Johann Lemons on 02-16-2025 Neutrophils/100 WBC (Bld) 73.5 % High 47-70 [facility] Neutrophil percentage 73.5 % High 47-70 [facility] Nitrite Test strip Ql (U)Ord ered By: Johann Lemons on 02-16-2025 Nitrite Ql (U) Positive High Negative [facility] Urine nitrite test by dipstick Positive High Negative [facility] No Panel InformationOrdered By: Johann Lemons on 02-16-2025 Blood Gas Sample Site Not entered [facility] Blood Gas Specimen Type GRACY [facility] Oxygen Delivery Device Not entered [facility] GRACY [facility] Not entered [facility] Nucleated red blood cell per centageOrdered By: Johann Lemons on 02-16-2025 Nucleated RBC/100 WBC (Bld) [Ratio] 0 % 0-5 [facility] Nucleated red blood cell percentage 0 % 0-5 [facility] Oxygen (BldV) [Partial press ure]Ordered By: Johann Lemons on 02-16-2025 Venous blood partial pressure of oxygen measurement 46 mmHg High 25-40 [facility] Platelet countOrdered By: Julia Lemons on 02-16-2025 Platelets (Bld) [#/Vol] 230 10*3/uL 150-450 [facility] Platelet count 230 K/mm3 150-450 [facility] Potassium (Unsp spec) [Mass/ Vol]Ordered By: Johann Lemons on 02-16-2025 Potassium measurement (mass/volume) 3.9 mmol/L 3.3-5.1 [facility] Potassium measurement (mass/ volume)Ordered By: Johann Lemons on 02-16-2025 Potassium (Unsp spec) [Mass/Vol] 3.9 mmol/L 3.3-5.1 [facility] Protein Test strip Ql (U)Ord ered By: Johann Lemons on 02-16-2025 Protein Ql (U) 100 mg/dl High Negative [facility] Urine protein assay by test strip, semi-quantitative 100 mg/dl High Negative [facility] RBC Auto (Bld) [#/Vol]Ordere d By: Johann Lemons on 02-16-2025 RBC (Bld) [#/Vol] 4.35 10*6/uL Low 4.6-6.2 [facility] Automated blood erythrocyte count 4.35 M/mm3 Low 4.6-6.2 [facility] Serum creatinine measurement (mass/volume)Ordered By: Johann Lemons on 02-16-2025 Creatinine [Mass/Vol] 0.90 mg/dL 0.70-1.20 [facility] Serum glucose measurement (m ass/volume)Ordered By: Johann Lemons on 02-16-2025 Glucose [Mass/Vol] 453 mg/dL High 70-99 [facility] Comment on above: Critical Result(s) C alled at 0505: by: MARYAM OSUNA Results read back by same. Serum or plasma calcium yayo urement (mass/volume)Ordered By: Johann Lemons on 02-16-2025 Calcium [Mass/Vol] 9.2 mg/dL 7.6-11.0 [facility] Serum or plasma urea nitroge n measurement (mass/volume)Ordered By: Johann Lemons on 02-16-2025 Urea nitrogen [Mass/Vol] 14 mg/dL 02-16 [facility] Sodium levelOrdered By: Keith Lemons on 02-16-2025 Sodium [Moles/Vol] 131 mmol/L Low 133-145 [facility] Sodium level 131 mmol/L Low 133-145 [facility] Specific gravity (U) [Rel de nsity]Ordered By: Johann Lemons on 02-16-2025 Urine specific gravity measurement 1.010 1.002-1.030 [facility] Squamous epithelial cells de tection in urine sediment by light microscopyOrdered By: Johann Lemons on 02-16-2025 Epithelial cells.squamous LM Ql (Urine sed) 0 SEEN /hpf 0-5 [facility] Urea nitrogen [Mass/Vol]Orde red By: Johann Lemons on 02-16-2025 Serum or plasma urea nitrogen measurement (mass/volume) 14 mg/dL 02-16 [facility] Urinalysis, Completeon 02-16 WBC >100 SEEN Normal 0-5 [facility] Comment on above: Order Comment: CLEAN CATCH Performed By: #### L 501.080 #### [facility] [address] [place], [address] BACTERIA 0 SEEN Normal None Seen [facility] Comment on above: Order Comment: CLEAN CATCH Performed By: #### L 501.080 #### [facility] [address] [place], [address] EPI,SQUAMOUS 0 SEEN Normal 0-5 [facility] Comment on above: Order Comment: CLEAN CATCH Performed By: #### L 501.080 #### [facility] [address] [place], [address] Mucus Ql (Urine sed) 0 SEEN Normal [facility] Comment on above: Order Comment: CLEAN CATCH Performed By: #### L 501.080 #### [facility] [address] [place], [address] RBC 0 SEEN Normal 0-5 [facility] Comment on above: Order Comment: CLEAN CATCH Performed By: #### L 501.080 #### [facility] [address] [place], [address] Urine blood detectionOrdered By: Johann Lemons on 02-16-2025 Urine blood detection 150 /ul High Negative [facility] Urine clarityOrdered By: Otoniel Lemons on 02-16-2025 Clarity (U) Turbid Clear [facility] Urine color determinationOrd ered By: Johann Lemons on 02-16-2025 Color (U) Yellow Yellow [facility] Urine cultureOrdered By: Otoniel Lemons on 02-16-2025 Bacteria identified Cx Nom (U) Staphylococcus aureus Abnormal [facility] Urine glucose detectionOrder ed By: Johann Lemons on 02-16-2025 Glucose Ql (U) 1000 mg/dl High Normal [facility] Urine leukocyte esterase det ection by dipstickOrdered By: Johann Lemons on 02-16-2025 Leukocyte esterase Test strip Ql (U) 500 /ul High Negative [facility] Urine pHOrdered By: Johann borjas on 02-16-2025 pH (U) 6.0 [pH] 5.0 - 8.0 [facility] Urine sediment bacteria coun t by microscopy (number/high power field)Ordered By: Johann Lemons on 02-16-2025 Bacteria LM.HPF (Urine sed) [#/Area] 0 /[HPF] None Seen [facility] Urine specific gravity measu rementOrdered By: Johann Lemons on 02-16-2025 Specific gravity (U) [Rel density] 1.010 1.002-1.030 [facility] Urine total bilirubin detect ion by test stripOrdered By: Johann Lemons on 02-16-2025 Urine total bilirubin detection by test strip Negative Negative [facility] Urine urobilinogen measureme ntOrdered By: Johann Lemons on 02-16-2025 Urobilinogen Ql (U) Normal mg/dl Normal [facility] Urobilinogen Ql (U)Ordered B y: Johann Lemons on 02-16-2025 Urine urobilinogen measurement Normal mg/dl Normal [facility] Venous Blood Gason Blood Gas Type GRACY Normal [facility] Comment on above: Performed By: #### L 501.080 #### [facility] [place], [address] CO2 [Moles/Vol] 34 mmol/L High 23-33 [facility] Comment on above: Performed By: #### L 501.080 #### [facility] [address] [place], [address] HCO3 (Bld) [Moles/Vol] 33 mmol/L High 22-26 [facility] Comment on above: Performed By: #### L 501.080 #### [facility] [address] [place], [address] O2 Delivery Dev Not entered Normal [facility] Comment on above: Performed By: #### L 501.080 #### [facility] [address] [place], [address] SITE Not entered Normal [facility] Comment on above: Performed By: #### L 501.080 #### [facility] [address] [place], [address] VBG BE 8 mmol/L High -1.0-3.5 [facility] Comment on above: Performed By: #### L 501.080 #### [facility] [address] [place], [address] VBG pCO2 54.5 mmHg High 41-51 [facility] Comment on above: Performed By: #### L 501.080 #### [facility] [address] [place], [address] VBG pH 7.39 Normal 7.32-7.42 [facility] Comment on above: Performed By: #### L 501.080 #### [facility] [address] [place], [address] VBG PO2 46 mmHg High 25-40 [facility] Comment on above: Performed By: #### L 501.080 #### [facility] [address] [place], [address] VBG SO2 80 High 50-70 [facility] Comment on above: Performed By: #### L 501.080 #### [facility] [address] [place], [address] Venous blood base excess sarina surementOrdered By: Johann Lemons on 02-16-2025 Base excess Calc (BldV) [Moles/Vol] 8 mmol/L High -1.0-3.5 [facility] Venous blood bicarbonate sarina surementOrdered By: Johann Lemons on 02-16-2025 HCO3 (Bld) [Moles/Vol] 33 mmol/L High 22-26 [facility] Venous blood bicarbonate measurement 33 mmol/L High 22-26 [facility] Venous blood oxygen saturati on measurementOrdered By: Johann Lemons on 02-16-2025 Oxygen saturation in Blood 80 % High 50-70 [facility] Venous blood oxygen saturation measurement 80 % High 50-70 [facility] Venous blood pH measurementO rdered By: Johann Lemons on 02-16-2025 pH (BldV) 7.39 [pH] 7.32-7.42 [facility] Venous blood partial pressur e of carbon dioxide measurementOrdered By: Johann Lemons on 02-16-2025 CO2 (BldV) [Partial pressure] 54.5 mm[Hg] High 41-51 [facility] Venous blood partial pressur e of oxygen measurementOrdered By: Johann Lemons on 02-16-2025 Oxygen (BldV) [Partial pressure] 46 mm[Hg] High 25-40 [facility] White blood cell (WBC) count Ordered By: Johann Lemons on 02-16-2025 WBC (Bld) [#/Vol] 8.7 10*3/uL 4.4-11.0 [facility] White blood cell (WBC) count 8.7 K/mm3 4.4-11.0 [facility] White blood cell countOrdere d By: Johann Lemons on 02-16-2025 White blood cell count >100 SEEN /hpf 0-5 [facility] White blood cell count >100 SEEN /hpf 0-5 [facility] pH (BldV)Ordered By: Johann Lemons on 02-16-2025 Venous blood pH measurement 7.39 7.32-7.42 [facility] pH (U)Ordered By: Wilmer on 02-16-2025 Urine pH 6.0 5.0 - 8.0 [facility] Urine Cultureon 12-29-2024 [facility] Staphylococcus aureu s [place] Count >100,000 Staphylococcus aureus: REACTION cefOXitin Susc Islt Doxycycline Islt NASRIN <=0.5 S Clindamycin.induced Susc Islt NEG Gentamicin Islt NASRIN <=0.5 S Linezolid Islt NASRIN 2 S Moxifloxacin Islt NASRIN <=0.25 S Nitrofurantoin Islt NASRIN <=16 S Oxacillin Susc Islt 0.5 S Tetracycline Islt NASRIN <=1 S TMP SMX Islt NASRIN <=10 S Vancomycin Islt NASRIN <=0.5 S Normal [facility] Comment on above: Performed By: #### M 100.2200 ####[facility] [id number] [facility] [place], [address] Bacteria LM.HPF (Urine sed) [#/Area]Ordered By: ED PROVIDER on 12-27-2024 Urine sediment bacteria count by microscopy (number/high power field) 3+ /hpf None Seen [facility] Bilirubin Test strip Ql (U)O rdered By: ED PROVIDER on 12-27-2024 Bilirubin Ql (U) Negative Negative [facility] Clarity (U)Ordered By: ED [place] OVIDER on 12-27-2024 Urine clarity Turbid Clear [facility] Color (U)Ordered By: ED PROV IDER on 12-27-2024 Urine color determination Yellow Yellow [facility] Emergency Department Summary on 12-27-2024 Emergency Department Summary [facility] Medical Records Department [address] [place] [address] Emergency Department Summary 12/27/24 MR#: [id number] Acct: [id number] Name: JERALD YODER Rep #: [id number] : 1960 64 From: Panchito Yun PCP: Care Physician,No Primary Status:REG ER Location: ED HPI History of Present Illness Chief Complaint: Complaint Informant: patient Narrative Narrative: Present burning with urination since noon yesterday. No fevers back pain abdominal pain vomiting diarrhea. History of UTIs. Penicillin allergy causing rash. [facility] similar symptoms: [facility] Medical History Partial traumatic amputation of left [...] Neck f (more content not included)... Normal [facility] Glucose Ql (U)Ordered By: ED PROVIDER on 12-27-2024 Urine glucose detection 1000 mg/dl High Normal [facility] Ketones Test strip Ql (U)Ord ered By: ED PROVIDER on 12-27-2024 Ketones Ql (U) Negative Negative [facility] Leukocyte esterase Test stri p Ql (U)Ordered By: ED PROVIDER on 12-27-2024 Urine leukocyte esterase detection by dipstick 500 /ul High Negative [facility] Microscopic analysis of urin e for red blood cells (RBC)Ordered By: ED PROVIDER on 12-27-2024 Microscopic analysis of urine for red blood cells (RBC) 25-50 SEEN /hpf 0-5 [facility] Microscopic analysis of urine for red blood cells (RBC) 25-50 SEEN /hpf 0-5 [facility] Mucus LM Ql (Urine sed)Order ed By: ED PROVIDER on 12-27-2024 Mucus Ql (Urine sed) 0 SEEN /hpf [facility] Nitrite Test strip Ql (U)Ord ered By: ED PROVIDER on 12-27-2024 Nitrite Ql (U) Positive High Negative [facility] Urine nitrite test by dipstick Positive High Negative [facility] Protein Test strip Ql (U)Ord ered By: ED PROVIDER on 12-27-2024 Protein Ql (U) 500 mg/dl High Negative [facility] Urine protein assay by test strip, semi-quantitative 500 mg/dl High Negative [facility] Specific gravity (U) [Rel de nsity]Ordered By: ED PROVIDER on 12-27-2024 Urine specific gravity measurement 1.015 1.002-1.030 [facility] Squamous epithelial cells de tection in urine sediment by light microscopyOrdered By: ED PROVIDER on 12-27-2024 Epithelial cells.squamous LM Ql (Urine sed) 0 SEEN /hpf 0-5 [facility] Squamous epithelial cells detection in urine sediment by light microscopy 0 SEEN /hpf [facility] Urinalysis, Completeon 12-27 BACTERIA 3+ /hpf Normal None Seen [facility] Comment on above: Order Comment: CLEAN CATCH Performed By: #### L 100.0100, L500.4050 #### [facility] [address] [place], [address] RBC 25-50 SEEN Normal [address] [place] [address] Comment on above: Order Comment: CLEAN CATCH Performed By: #### L 100.0100, L500.4050 #### [facility] [address] [place], [address] WBC >100 SEEN Normal 0-5 [facility] Comment on above: Order Comment: CLEAN CATCH Result Comment: Micr oscopic field is filled. Other elements may be obscured. Performed By: #### L 100.0100, L500.4050 #### [facility] [address] [place], [address] EPI,SQUAMOUS 0 SEEN Normal 0-[address] [place] [address] Comment on above: Order Comment: CLEAN CATCH Performed By: #### L 100.0100, L500.4050 #### [facility] [address] [place], [address] Mucus Ql (Urine sed) 0 SEEN Normal [facility] Comment on above: Order Comment: CLEAN CATCH Performed By: #### L 100.0100, L500.4050 #### [facility] [address] [place], [address] Urine blood detectionOrdered By: ED PROVIDER on 12-27-2024 Urine blood detection 250 /ul High Negative [facility] Urine clarityOrdered By: ED PROVIDER on 12-27-2024 Clarity (U) Turbid Clear [facility] Urine color determinationOrd ered By: ED PROVIDER on 12-27-2024 Color (U) Yellow Yellow [facility] Urine glucose detectionOrder ed By: ED PROVIDER on 12-27-2024 Glucose Ql (U) 1000 mg/dl High Normal [facility] Urine leukocyte esterase det ection by dipstickOrdered By: ED PROVIDER on 12-27-2024 Leukocyte esterase Test strip Ql (U) 500 /ul High Negative [facility] Urine pHOrdered By: ED PROVI CRISTINA on 12-27-2024 pH (U) 6.0 [pH] 5.0 - 8.0 [facility] Urine sediment bacteria coun t by microscopy (number/high power field)Ordered By: ED PROVIDER on 12-27-2024 Bacteria LM.HPF (Urine sed) [#/Area] 3 /[HPF] None Seen [facility] Urine specific gravity measu rementOrdered By: ED PROVIDER on 12-27-2024 Specific gravity (U) [Rel density] 1.015 1.002-1.030 [facility] Urine total bilirubin detect ion by test stripOrdered By: ED PROVIDER on 12-27-2024 Urine total bilirubin detection by test strip Negative Negative [facility] Urine urobilinogen measureme ntOrdered By: ED PROVIDER on 12-27-2024 Urobilinogen Ql (U) Normal mg/dl Normal [facility] Urobilinogen Ql (U)Ordered B y: ED PROVIDER on 12-27-2024 Urine urobilinogen measurement Normal mg/dl Normal [facility] White blood cell countOrdere d By: ED PROVIDER on 12-27-2024 White blood cell count >100 SEEN /hpf 0-5 [facility] Comment on above: Microscopic field is filled. Other elements may be obscured. White blood cell count >100 SEEN /hpf 0-5 [facility] pH (U)Ordered By: ED PROVIDE R on 12-27-2024 Urine pH 6.0 5.0 - 8.0 [facility] Urine cultureOrdered By: Harley Castillo on 12-26-2024 Bacteria identified Cx Nom (U) Staphylococcus aureus Abnormal [facility] Urine culture Staphylococcus aureus Abnormal [facility] ALP [Catalytic activity/Vol] Ordered By: Avni Cash on 12-20-2024 Serum or plasma alkaline phosphatase measurement 117 U/L 45-117 [facility] ALT [Catalytic activity/Vol] Ordered By: Avni Cash on 12-20-2024 Serum or plasma alanine aminotransferase (ALT) measurement 16 U/L 16-61 [facility] Abdomen/Pelvis W IV Cont ONL Yon 12-20-2024 Abdomen/Pelvis W IV Cont ONLY [facility] Imaging Services [address] [place], [place] [id number] Abdomen/Pelvis W IV Cont ONLY MR#: [id number] Acct: [id number] Name: JERALD YODER Rep #: [id number] : 1960 M 64 From: Beck Quigley MD PCP: Care Physician,No Primary Status: REG ER Study: Abdomen/Pelvis W IV Cont ONLY Date of Exam: Exam# [id number] Ordering Dr: Avni Cash MD PROCEDURE: ABDOMEN/PELVIS [...] use of iterative reconstruction technique). Reading Location: [place] [address] CC: Dr. Avni Cash MD; No Primary Care Physician Powered Bridge Specialist: Signed Normal [facility] Absolute lymphocyte countOrd ered By: Avni Cash on 12-20-2024 Lymphocytes Auto (Unsp spec) [#/Vol] 1.10 10*3/uL 0.83-4.51 [facility] Absolute neutrophil countOrd ered By: Avni Cash on 12-20-2024 Neutrophils (Bld) [#/Vol] 6.6 10*3/uL 2.0-7.7 [facility] Absolute neutrophil count 6.6 X10^3/uL 2.0-7.7 [facility] Albumin [Mass/Vol]Ordered By : Anvi Cash on 12-20-2024 Serum or plasma albumin measurement (mass/volume) 3.4 g/dL 3.2-5.0 [facility] Albumin to globulin ratioOrd ered By: Avni Cash on 12-20-2024 Albumin/Globulin [Mass ratio] 0.8 {ratio} Low 0.9-2.4 [facility] Albumin to globulin ratio 0.8 RATIO Low 0.9-2.4 [facility] Automated lymphocyte count a s percentage of total leukocytesOrdered By: Avni Cash on 12-20-2024 Lymphocytes/100 WBC Auto (Unsp spec) 13.2 % Low 19-41 [facility] Basophil percentageOrdered B y: Avni Cash on 12-20-2024 Basophils/100 WBC (Bld) 0.5 % 0-1 [facility] Basophil percentage 0.5 % 0-1 [facility] Bilirubin Test strip Ql (U)O rdered By: Avni Cash on 12-20-2024 Bilirubin Ql (U) Negative Negative [facility] Bilirubin, totalOrdered By: Avni Cash on 12-20-2024 Bilirubin [Mass/Vol] 0.70 mg/dL 0.20-1.00 [facility] Comment on above: For patients on eltr ombopag therapy, use of Dimension [place] TBIL is not recommended. Bilirubin, total 0.70 mg/dL 0.20-1.00 [facility] Blood urea nitrogen (BUN)/cr eatinine ratioOrdered By: Avni Cash on 12-20-2024 Urea nitrogen/Creatinine [Mass ratio] 11.2 mg/mg 08-19 [facility] Blood urea nitrogen (BUN)/creatinine ratio 11.2 RATIO 08-19 [facility] CBC W/Diff, Automatedon 12-02 Absolute Lymph 1.10 X10 3/uL Normal 0.83-4.51 [facility] Comment on above: Performed By: #### L 501.080 #### [facility] [address] [place], [place], [id number] Absolute Neut 6.6 X10 3/uL Normal 2.0-7.7 [facility] Comment on above: Performed By: #### L 501.080 #### [facility] [address] [place], [address] Basophils/100 WBC (Bld) 0.5 % Normal 0-1 [facility] Comment on above: Performed By: #### L 501.080 #### [facility] [address] [place], [address] Eosinophils/100 WBC (Bld) 1.7 % Normal 0-5 [facility] Comment on above: Performed By: #### L 501.080 #### [facility] [address] [place], [address] Erythrocyte distribution width (RBC) [Ratio] 13.9 % Normal 11.6-14.6 [facility] Comment on above: Performed By: #### L 501.080 #### [facility] [address] [place], [address] Hematocrit (Bld) [Volume fraction] 40.7 % Normal 40-54 [facility] Comment on above: Performed By: #### L 501.080 #### [facility] [address] [place], [address] Hemoglobin (Bld) [Mass/Vol] 14.4 g/dL Normal 13.0-16.5 [facility] Comment on above: Performed By: #### L 501.080 #### [facility] [address] [place], [address] IG% 0.800 Normal 0.0-0.9 [facility] Comment on above: Result Comment: IG% - Immature Granulocytes (promyelocytes, myelocytes and metamyelocytes) > 1% indicates that a LEFT SHIFT is Present. Performed By: #### L 501.080 #### [facility] [address] [place], [address] Lymphocytes/100 WBC (Bld) 13.2 % Low 19-41 [facility] Comment on above: Performed By: #### L 501.080 #### [facility] [address] [place], [address] MCH (RBC) [Entitic mass] 29.1 pg Normal 27.0-32.0 [facility] Comment on above: Performed By: #### L 501.080 #### [facility] [address] [place], [address] MCHC (RBC) [Mass/Vol] 35.4 g/dL Normal 32-36 [facility] Comment on above: Performed By: #### L 501.080 #### [facility] [address] [place], [address] MCV (RBC) [Entitic vol] 82.2 fL Normal 80-94 [facility] Comment on above: Performed By: #### L 501.080 #### [facility] [address] [place], [address] Monocytes/100 WBC (Bld) 5.3 % Normal 0-10 [facility] Comment on above: Performed By: #### L 501.080 #### [facility] [address] [place], [address] Neutrophils/100 WBC (Bld) 78.5 % High 47-70 [facility] Comment on above: Performed By: #### L 501.080 #### [facility] [address] [place], [address] Nucleated RBC (Bld) [#/Vol] 0 10*3/uL Normal 0-5 [facility] Comment on above: Performed By: #### L 501.080 #### [facility] [address] [place], [address] Platelet mean volume (Bld) [Entitic vol] 9.3 fL Normal 6.2-12.0 [facility] Comment on above: Performed By: #### L 501.080 #### [facility] [address] [place], [address] Platelets (Bld) [#/Vol] 281 10*3/uL Normal 150-450 [facility] Comment on above: Performed By: #### L 501.080 #### [facility] [address] [place], [address] RBC (Bld) [#/Vol] 4.95 10*6/uL Normal 4.6-6.2 [facility] Comment on above: Performed By: #### L 501.080 #### [facility] [address] [place], [address] RDW SD 41.1 fl Normal 35.1-43.9 [facility] Comment on above: Performed By: #### L 501.080 #### [facility] [address] [place], [address] WBC (Bld) [#/Vol] 8.4 10*3/uL Normal 4.4-11.0 [facility] Comment on above: Performed By: #### L 501.080 #### [facility] [address] [place], [address] Calcium [Mass/Vol]Ordered By : Avni Cash on 12-20-2024 Serum or plasma calcium measurement (mass/volume) 9.7 mg/dL 8.5-10.1 [facility] Carbon dioxide measurementOr dered By: Avni Cash on 12-20-2024 CO2 [Moles/Vol] 31.0 mmol/L 21.0-32.0 [facility] Carbon dioxide measurement 31.0 mmol/L 21.0-32.0 [facility] Chloride measurementOrdered By: Avni Cash on 12-20-2024 Chloride [Moles/Vol] 99 mmol/L 98-107 [facility] Chloride measurement 99 mmol/L 98-107 [facility] Clarity (U)Ordered By: Avni Cash on 12-20-2024 Urine clarity Clear Clear [facility] Color (U)Ordered By: Avni hauser on 12-20-2024 Urine color determination Yellow Yellow [facility] Comprehensive Metabolic Prof ilon 12-20-2024 Albumin [Mass/Vol] 3.4 g/dL Normal 3.2-5.0 [facility] Comment on above: Performed By: #### L 501.080 #### [facility] [address] [place], [address] Albumin/Globulin [Mass ratio] 0.8 {ratio} Low 0.9-2.4 [facility] Comment on above: Performed By: #### L 501.080 #### [facility] [address] [place], [address] ALK P 117 U/L Normal 45-117 [facility] Comment on above: Performed By: #### L 501.080 #### [facility] [address] [place], [address] ALT [Catalytic activity/Vol] 16 U/L Normal 16-61 [facility] Comment on above: Performed By: #### L 501.080 #### [facility] [address] [place], [address] AST [Catalytic activity/Vol] 8 U/L Low 15-37 [facility] Comment on above: Performed By: #### L 501.080 #### [facility] [address] [place], [address] Bilirubin [Mass/Vol] 0.70 mg/dL Normal 0.20-1.00 [facility] Comment on above: Result Comment: For patients on eltrombopag therapy, use of Dimension [place] TBIL is not recommended. Performed By: #### L 501.080 #### [facility] [address] [place], [address] BUN/CRE 11.2 RATIO Normal 10-20 [facility] Comment on above: Performed By: #### L 501.080 #### [facility] [address] [place], [address] CA,Total 9.7 mg/dL Normal 8.5-10.1 [facility] Comment on above: Performed By: #### L 501.080 #### [facility] [address] [place], [address] Chloride [Moles/Vol] 99 mmol/L Normal 98-107 [facility] Comment on above: Performed By: #### L 501.080 #### [facility] [address] [place], [address] CO2 [Moles/Vol] 31.0 mmol/L Normal 21.0-32.0 [facility] Comment on above: Performed By: #### L 501.080 #### [facility] [address] [place], [address] Creatinine [Mass/Vol] 0.89 mg/dL Normal 0.70-1.30 [facility] Comment on above: Result Comment: The validity of the calculated GFR GFRAA in patients over 70 years has not been determined. Clinical correlation is essential. Performed By: #### L 501.080 #### [facility] [address] [place], [address] EST GFR - AA 110 mL/min Normal >60 [facility] Comment on above: Result Comment: Afri can Citizen [place] GFR Calc Performed By: #### L 501.080 #### [facility] [address] [place], [address] GAP 5 Normal 5-15 [facility] Comment on above: Performed By: #### L 501.080 #### [facility] [address] [place], [address] GFR/1.73 sq M.predicted among non-blacks MDRD (S/P/Bld) [Vol rate/Area] 91 mL/min/{1.73_m2} Normal >60 [facility] Comment on above: Result Comment: Non- GFR Calc Performed By: #### L 501.080 #### [facility] [address] [place], [address] Globulin (S) [Mass/Vol] 4.1 g/dL Normal 2.2-4.2 [facility] Comment on above: Performed By: #### L 501.080 #### [facility] [address] [place], [address] Glucose [Mass/Vol] 424 mg/dL High 74-106 [facility] Comment on above: Result Comment: Gluc ose result greater than or equal to 200 mg/dL suggests DIABETES MELLITUS per A.D.A. criteria. Performed By: #### L 501.080 #### [facility] [address] [place], [address] Potassium [Moles/Vol] 4.3 mmol/L Normal 3.5-5.1 [facility] Comment on above: Performed By: #### L 501.080 #### [facility] [address] [place], [address] Sodium [Moles/Vol] 135 mmol/L Low 136-145 [facility] Comment on above: Performed By: #### L 501.080 #### [facility] [address] [place], [address] T PROT 7.5 g/dL Normal 6.4-8.2 [facility] Comment on above: Performed By: #### L 501.080 #### [facility] [address] [place], [address] Urea nitrogen [Mass/Vol] 10 mg/dL Normal 7-18 [facility] Comment on above: Performed By: #### L 501.080 #### [facility] [address] [place], [address] Creatinine [Mass/Vol]Ordered By: Avni Cash on 12-20-2024 Serum or plasma creatinine measurement (mass/volume) 0.89 mg/dL 0.70-1.30 [facility] Emergency Department Summary on 12-20-2024 Emergency Department Summary [facility] Medical Records Department [address] [place] [address] Emergency Department Summary 12/20/24 MR#: [id number] Acct: [id number] Name: JERALD YODER Rep #: [id number] : 1960 64 From: Avni Cash MD [...] Genitourinary G (more content not included)... Normal [facility] Eosinophil percentageOrdered By: Avni Cash on 12-20-2024 Eosinophils/100 WBC (Bld) 1.7 % 0-5 [facility] Eosinophil percentage 1.7 % 0-5 [facility] Erythrocyte distribution wid th (RBC) [Ratio]Ordered By: Avni Cash on 12-20-2024 Erythrocyte distribution width ratio 13.9 % 11.6-14.6 [facility] Erythrocyte distribution width standard deviation 41.1 fl 35.1-43.9 [facility] Erythrocyte distribution wid th ratioOrdered By: Avni Cash on 12-20-2024 Erythrocyte distribution width (RBC) [Ratio] 13.9 % 11.6-14.6 [facility] Erythrocyte distribution wid th standard deviationOrdered By: Avni Cash on 12-20-2024 Erythrocyte distribution width (RBC) [Ratio] 41.1 fl 35.1-43.9 [facility] Estimated glomerular filtrat ion rate (GFR) AmericanOrdered By: Avni Cash on 12-20-2024 Estimated glomerular filtration rate (GFR) 110 mL/min >60 [facility] Glomerular filtration rate ( GFR) estimationOrdered By: Avni Cash on 12-20-2024 GFR/1.73 sq M.predicted among non-blacks MDRD (S/P/Bld) [Vol rate/Area] 91 mL/min/{1.73_m2} >60 [facility] Comment on above: Non- GFR Calc Glomerular filtration rate (GFR) estimation 91 mL/min >60 [facility] Glucose Ql (U)Ordered By: Vitor Cash on 12-20-2024 Urine glucose detection 1000 mg/dl High Normal [facility] Glucose measurementOrdered B y: Avni Cash on 12-20-2024 Glucose [Mass/Vol] 424 mg/dL High 74-106 [facility] Comment on above: Glucose result great er than or equal to 200 mg/dLsuggests DIABETES MELLITUS per A.D.A. criteria. Glucose measurement 424 mg/dL High 74-106 [facility] Hematocrit Auto (Bld) [Volum e fraction]Ordered By: Avni Cash on 12-20-2024 Hematocrit (Bld) [Volume fraction] 40.7 % 40-54 [facility] Automated blood hematocrit (percentage) 40.7 % 40-54 [facility] Hemoglobin measurementOrdere d By: Avni Cash on 12-20-2024 Hemoglobin (Bld) [Mass/Vol] 14.4 g/dL 13.0-16.5 [facility] Hemoglobin measurement 14.4 g/dL 13.0-16.5 [facility] Hyaline casts LM.LPF (Urine sed) [#/Area]Ordered By: Avni Cash on 12-20-2024 Hyaline casts (Urine sed) [#/Area] 0 /[LPF] 0-5 [facility] Urine sediment hyaline cast count by microscopy (number/low power field) 0-5 SEEN /lpf 0-5 [facility] Immature granulocytes/100 WB C Auto (Bld)Ordered By: Avni Cash on 12-20-2024 Immature granulocytes/100 WBC (Bld) 0.800 % 0.0-0.9 [facility] Comment on above: IG% - Immature Granu locytes (promyelocytes, myelocytes and metamyelocytes) > 1% indicates that a LEFT SHIFT is Present. Automated immature granulocyte percentage 0.800 % 0.0-0.9 [facility] Ketones Test strip Ql (U)Ord ered By: Avni Cash on 12-20-2024 Ketones Ql (U) Negative Negative [facility] - Chemistry and C hemistry - challengeOrdered By: Avni Cash on 12-20-2024 AST [Catalytic activity/Vol] 8 U/L Low 15-37 [facility] Lipaseon 12-20-2024 Lipase [Catalytic activity/Vol] 13 U/L Low 73-393 [facility] Comment on above: Performed By: #### L 501.080 #### [facility] [address] [place], [address] Lipase measurementOrdered By : Avni Cash on 12-20-2024 Lipase [Catalytic activity/Vol] 13 U/L Low 73-393 [facility] Lipase measurement 13 U/L Low 73-393 [facility] Lymphocytes Auto (Unsp spec) [#/Vol]Ordered By: Avni Cash on 12-20-2024 Absolute lymphocyte count 1.10 X10^3/uL 0.83-4.51 [facility] Lymphocytes/100 WBC Auto (Un sp spec)Ordered By: Avni Cash on 12-20-2024 Automated lymphocyte count as percentage of total leukocytes 13.2 % Low 19-41 [facility] MCV (RBC) [Entitic vol]Order ed By: Avni Cash on 12-20-2024 MCV (mean corpuscular volume) determination 82.2 fL 80-94 [facility] MCV (mean corpuscular volume ) determinationOrdered By: Avni Cash on 12-20-2024 MCV (RBC) [Entitic vol] 82.2 fL 80-94 [facility] Mean corpuscular hemoglobin (MCH) determinationOrdered By: Avni Cash on 12-20-2024 MCH (RBC) [Entitic mass] 29.1 pg 27.0-32.0 [facility] Mean corpuscular hemoglobin (MCH) determination 29.1 pg 27.0-32.0 [facility] Mean corpuscular hemoglobin concentration (MCHC) determinationOrdered By: Avni Cash on 12-20-2024 MCHC (RBC) [Mass/Vol] 35.4 g/dL 32-36 [facility] Mean corpuscular hemoglobin concentration (MCHC) determination 35.4 g/dL 32-36 [facility] Mean platelet volume determi nationOrdered By: Avni Cash on 12-20-2024 Platelet mean volume (Bld) [Entitic vol] 9.3 fL 6.2-12.0 [facility] Mean platelet volume determination 9.3 fl 6.2-12.0 [facility] Microscopic analysis of urin e for red blood cells (RBC)Ordered By: Avni Cash on 12-20-2024 Microscopic analysis of urine for red blood cells (RBC) 0-5 SEEN /hpf 0-5 [facility] Monocyte percentageOrdered B y: Avni Cash on 12-20-2024 Monocytes/100 WBC (Bld) 5.3 % 0-10 [facility] Monocyte percentage 5.3 % 0-10 [facility] Mucus LM Ql (Urine sed)Order ed By: Avni Cash on 12-20-2024 Mucus Ql (Urine sed) 0 SEEN /hpf [facility] Neutrophil percentageOrdered By: Avni Cash on 12-20-2024 Neutrophils/100 WBC (Bld) 78.5 % High 47-70 [facility] Neutrophil percentage 78.5 % High 47-70 [facility] Nitrite Test strip Ql (U)Ord ered By: Avni Cash on 12-20-2024 Nitrite Ql (U) Negative Negative [facility] No Panel InformationOrdered By: Avni Cash on 12-20-2024 8 U/L Low 15-37 [facility] Nucleated red blood cell per centageOrdered By: Avni Cash on 12-20-2024 Nucleated RBC/100 WBC (Bld) [Ratio] 0 % 0-5 [facility] Nucleated red blood cell percentage 0 % 0-5 [facility] Platelet countOrdered By: Vitor Cash on 12-20-2024 Platelets (Bld) [#/Vol] 281 10*3/uL 150-450 [facility] Platelet count 281 K/mm3 150-450 [facility] Potassium measurementOrdered By: Avni Cash on 12-20-2024 Potassium [Moles/Vol] 4.3 mmol/L 3.5-5.1 [facility] Potassium measurement 4.3 mmol/L 3.5-5.1 [facility] Protein Test strip Ql (U)Ord ered By: Avni Cash on 12-20-2024 Protein Ql (U) Negative Negative [facility] RBC Auto (Bld) [#/Vol]Ordere d By: Avni Cash on 12-20-2024 RBC (Bld) [#/Vol] 4.95 10*6/uL 4.6-6.2 [facility] Automated blood erythrocyte count 4.95 M/mm3 4.6-6.2 [facility] Serum anion gap measurementO rdered By: Avni Cash on 12-20-2024 Anion gap [Moles/Vol] 5 mmol/L 5-15 [facility] Serum anion gap measurement 5 5-15 [facility] Serum globulin measurementOr dered By: Avni Cash on 12-20-2024 Globulin (S) [Mass/Vol] 4.1 g/dL 2.2-4.2 [facility] Serum globulin measurement 4.1 g/dL 2.2-4.2 [facility] Serum or plasma alanine wagoner otransferase (ALT) measurementOrdered By: Avni Cash on 12-20-2024 ALT [Catalytic activity/Vol] 16 U/L 16-61 [facility] Serum or plasma albumin yayo urement (mass/volume)Ordered By: Avni Cash on 12-20-2024 Albumin [Mass/Vol] 3.4 g/dL 3.2-5.0 [facility] Serum or plasma alkaline andrzej sphatase measurementOrdered By: Avni Cash on 12-20-2024 ALP [Catalytic activity/Vol] 117 U/L 45-117 [facility] Serum or plasma calcium yayo urement (mass/volume)Ordered By: Avni Cash on 12-20-2024 Calcium [Mass/Vol] 9.7 mg/dL 8.5-10.1 [facility] Serum or plasma creatinine m easurement (mass/volume)Ordered By: Avni Cash on 12-20-2024 Creatinine [Mass/Vol] 0.89 mg/dL 0.70-1.30 [facility] Comment on above: The validity of the calculated GFR & GFRAA in patients over 70 years has not been determined. Clinical correlation is essential. Serum or plasma urea nitroge n measurement (mass/volume)Ordered By: Avni Cash on 12-20-2024 Urea nitrogen [Mass/Vol] 10 mg/dL 7-18 [facility] Sodium levelOrdered By: Avni Cash on 12-20-2024 Sodium [Moles/Vol] 135 mmol/L Low 136-145 [facility] Sodium level 135 mmol/L Low 136-145 [facility] Specific gravity (U) [Rel de nsity]Ordered By: Avni Cash on 12-20-2024 Urine specific gravity measurement 1.010 1.002-1.030 [facility] Squamous epithelial cells de tection in urine sediment by light microscopyOrdered By: Avni Cash on 12-20-2024 Epithelial cells.squamous LM Ql (Urine sed) 0 SEEN /hpf 0-5 [facility] Squamous epithelial cells detection in urine sediment by light microscopy 0 SEEN /hpf [facility] Total proteinOrdered By: Geovani Cash on 12-20-2024 Protein [Mass/Vol] 7.5 g/dL 6.4-8.2 [facility] Total protein 7.5 g/dL 6.4-8.2 [facility] Urea nitrogen [Mass/Vol]Orde red By: Avni Cash on 12-20-2024 Serum or plasma urea nitrogen measurement (mass/volume) 10 mg/dL 05-17 [facility] Urinalysis, Completeon 12-20 CAST,HYALINE 0-5 SEEN Normal 0-5 [facility] Comment on above: Order Comment: CLEAN CATCH Performed By: #### L 100.0100, L500.4050 #### [facility] [address] [place], [address] RBC 0-5 SEEN Normal 0-5 [facility] Comment on above: Order Comment: CLEAN CATCH Performed By: #### L 100.0100, L500.4050 #### [facility] [address] [place], [address] WBC 0-5 SEEN Normal 0-5 [facility] Comment on above: Order Comment: CLEAN CATCH Performed By: #### L 100.0100, L500.4050 #### [facility] [address] [place], [address] YEAST 1+ /hpf Normal None Seen [facility] Comment on above: Order Comment: CLEAN CATCH Performed By: #### L 100.0100, L500.4050 #### [facility] [address] [place], [address] BACTERIA 0 SEEN Normal None Seen [facility] Comment on above: Order Comment: CLEAN CATCH Performed By: #### L 100.0100, L500.4050 #### [facility] [address] [place], [address] EPI,SQUAMOUS 0 SEEN Normal 0-5 [facility] Comment on above: Order Comment: CLEAN CATCH Performed By: #### L 100.0100, L500.4050 #### [facility] [address] [place], [address] Mucus Ql (Urine sed) 0 SEEN Normal [facility] Comment on above: Order Comment: CLEAN CATCH Performed By: #### L 100.0100, L500.4050 #### [facility] [address] [place], [address] Urine blood detectionOrdered By: Avni Cash on 12-20-2024 Urine blood detection 10 /ul High Negative [facility] Urine clarityOrdered By: Geovani Cash on 12-20-2024 Clarity (U) Clear Clear [facility] Urine color determinationOrd ered By: Avni Cash on 12-20-2024 Color (U) Yellow Yellow [facility] Urine glucose detectionOrder ed By: Avni Cash on 12-20-2024 Glucose Ql (U) 1000 mg/dl High Normal [facility] Urine leukocyte esterase det ection by dipstickOrdered By: Avni Cash on 12-20-2024 Leukocyte esterase Test strip Ql (U) Negative Negative [facility] Urine pHOrdered By: Avni jiang on 12-20-2024 pH (U) 5.0 [pH] 5.0 - 8.0 [facility] Urine sediment bacteria coun t by microscopy (number/high power field)Ordered By: Avni Cash on 12-20-2024 Bacteria LM.HPF (Urine sed) [#/Area] 0 /[HPF] None Seen [facility] Urine sediment yeast count b y microscopy (number/high powered field)Ordered By: Avni Cash on 12-20-2024 Yeast LM.HPF (Urine sed) [#/Area] 1 /[HPF] None Seen [facility] Urine specific gravity measu rementOrdered By: Avni Cash on 12-20-2024 Specific gravity (U) [Rel density] 1.010 1.002-1.030 [facility] Urine total bilirubin detect ion by test stripOrdered By: Avni Cash on 12-20-2024 Urine total bilirubin detection by test strip Negative Negative [facility] Urine urobilinogen measureme ntOrdered By: Avni Cash on 12-20-2024 Urobilinogen Ql (U) Normal mg/dl Normal [facility] Urobilinogen Ql (U)Ordered B y: Avni Cash on 12-20-2024 Urine urobilinogen measurement Normal mg/dl Normal [facility] White blood cell (WBC) count Ordered By: Avni Cash on 12-20-2024 WBC (Bld) [#/Vol] 8.4 10*3/uL 4.4-11.0 [facility] White blood cell (WBC) count 8.4 K/mm3 4.4-11.0 [facility] White blood cell countOrdere d By: Avni Cash on 12-20-2024 White blood cell count 0-5 SEEN /hpf 0-5 [facility] White blood cell count 0-5 SEEN /hpf 0-5 [facility] Yeast LM.HPF (Urine sed) [#/ Area]Ordered By: Avni Cash on 12-20-2024 Urine sediment yeast count by microscopy (number/high powered field) 1+ /hpf None Seen [facility] pH (U)Ordered By: Avni pena on 12-20-2024 Urine pH 5.0 5.0 - 8.0 [facility] CNOVon 12-14-2024 CNOV Office Visit ([facility] ) JERALD YODER ([id number]) 1960 M Date Time Provider Department 12/14/24 9:30 AM [facility] During your visit today, we recorded the following information about you: Temperature Pulse Respiration Blood pressure 97.1 degrees 77/minute 18/minute 105/70 Weight 98.7 kg Ion Alfaro APRN.UNIFORMER 12/14/2024 9:40 AM Signed This note was created using [employer]ware[employer]. Subjective Jerald Yoder is a 64 year [...] - CETIRIZINE 10 MG TABLET Ion Alfaro APRN.UNIFORMER Allergies As of Date: 12/14/2024 Noted Allergy Reaction BEE STING 06/22/2011 7 - Swelling BENEDRYL (DIPHENHYDRAMINE) 06/22/2011 7 - Swelling PENICILLINS 06/22/2011 2 - Rash Date Reviewed: 12/14/2024 Reviewed by: Ion Alfaro APRN.UNIFORMER - Fully Assessed Reason for Visit: Ear Problem [38] Cmt: Bilateral clogged x1 day Primary Visit Diagnosis:Eustachian tube dysfunction, bilateral [H69.93] Order(s):fluticasone (FLONASE ALLERGY RELIEF) 50 mcg/actuation nasal sprayUse 1 [place] in each nostril once daily.Disp: 9.9 mLRfl: 0 cetirizine (ZYRTEC) 10 mg tabletTake 1 tablet by mouth once daily for 14 days.Disp: 14 tabletRfl: 0 Prescriptions as of 12/14/2024 - fluticasone (FLONASE ALLERGY RELIEF) 50 mcg/actuation nasal spray Use 1 [place] in each nostril once daily. - cetirizine [...] before breakfast. - flash glucose scanning reader (ASSURED PHARMACYSTYLE CLAUDIA 14 DAY READER) misc 1 Device four times daily. - flash glucose sensor (FREESTYLE CLAUDIA 14 DAY SENSOR) kit 1 Device four times daily. - Insulin Syringe-Needle U-100 0.5 mL 31 gauge x 5/16 syrg Use once daily with Lantus - blood sugar diagnostic (FREESTYLE LITE STRIPS) test strip Test blood sugar(s) 4 times daily. Dx: 250.02. (more content not included)... Normal [facility] ALP [Catalytic activity/Vol] Ordered By: Barry Mathew on 12-08-2024 Serum or plasma alkaline phosphatase measurement 98 U/L 45-117 [facility] ALT [Catalytic activity/Vol] Ordered By: Barry Mathew on 12-08-2024 Serum or plasma alanine aminotransferase (ALT) measurement 16 U/L 16-61 [facility] Absolute lymphocyte countOrd ered By: Barry Mathew on 12-08-2024 Lymphocytes Auto (Unsp spec) [#/Vol] 1.25 10*3/uL 0.83-4.51 [facility] Absolute neutrophil countOrd ered By: Barry Mathew on 12-08-2024 Neutrophils (Bld) [#/Vol] 4.1 10*3/uL 2.0-7.7 [facility] Absolute neutrophil count 4.1 X10^3/uL 2.0-7.7 [facility] Albumin [Mass/Vol]Ordered By : Barry Mathew on 12-08-2024 Serum or plasma albumin measurement (mass/volume) 3.5 g/dL 3.2-5.0 [facility] Albumin to globulin ratioOrd ered By: Barry Mathew on 12-08-2024 Albumin/Globulin [Mass ratio] 0.9 {ratio} 0.9-2.4 [facility] Albumin to globulin ratio 0.9 RATIO 0.9-2.4 [facility] Automated lymphocyte count a s percentage of total leukocytesOrdered By: Barry Mathew on 12-08-2024 Lymphocytes/100 WBC Auto (Unsp spec) 20.7 % 19-41 [facility] Bacteria LM.HPF (Urine sed) [#/Area]Ordered By: Barry Mathew on 12-08-2024 Urine sediment bacteria count by microscopy (number/high power field) 1+ /hpf None Seen [facility] Basophil percentageOrdered B y: Barry Mathew on 12-08-2024 Basophils/100 WBC (Bld) 0.7 % 0-1 [facility] Basophil percentage 0.7 % 0-1 [facility] Bilirubin Test strip Ql (U)O rdered By: Barry Mathew on 12-08-2024 Bilirubin Ql (U) Negative Negative [facility] Bilirubin, totalOrdered By: Barry Mathew on 12-08-2024 Bilirubin [Mass/Vol] 0.40 mg/dL 0.20-1.00 [facility] Comment on above: For patients on eltr ombopag therapy, use of Dimension [place] TBIL is not recommended. Bilirubin, total 0.40 mg/dL 0.20-1.00 [facility] Blood urea nitrogen (BUN)/cr eatinine ratioOrdered By: Barry Mathew on 12-08-2024 Urea nitrogen/Creatinine [Mass ratio] 14.2 mg/mg - [facility] Blood urea nitrogen (BUN)/creatinine ratio 14.2 RATIO 08-19 [facility] CBC W/Diff, Automatedon Absolute Lymph 1.25 X10 3/uL Normal 0.83-4.51 [facility] Comment on above: Performed By: #### L 100.0100, L500.7980 #### [facility] [address] [place], [place], [address] Absolute Neut 4.1 X10 3/uL Normal 2.0-7.7 [facility] Comment on above: Performed By: #### L 100.0100, L500.4050 #### [facility] [address] [place], [address] Basophils/100 WBC (Bld) 0.7 % Normal 0-1 [facility] Comment on above: Performed By: #### L 100.0100, L500.4050 #### [facility] [address] [place], [address] Eosinophils/100 WBC (Bld) 3.8 % Normal 0-5 [facility] Comment on above: Performed By: #### L 100.0100, L500.4050 #### [facility] [address] [place], [address] Erythrocyte distribution width (RBC) [Ratio] 14.0 % Normal 11.6-14.6 [facility] Comment on above: Performed By: #### L 100.0100, L500.4050 #### [facility] [address] [place], [address] Hematocrit (Bld) [Volume fraction] 38.6 % Low 40-54 [facility] Comment on above: Performed By: #### L 100.0100, L500.4050 #### [facility] [address] [place], [address] Hemoglobin (Bld) [Mass/Vol] 13.6 g/dL Normal 13.0-16.5 [facility] Comment on above: Performed By: #### L 100.0100, L500.4050 #### [facility] [address] [place], [address] IG% 0.500 Normal 0.0-0.9 [facility] Comment on above: Result Comment: IG% - Immature Granulocytes (promyelocytes, myelocytes and metamyelocytes) > 1% indicates that a LEFT SHIFT is Present. Performed By: #### L 100.0100, L500.4050 #### [facility] [address] [place], [address] Lymphocytes/100 WBC (Bld) 20.7 % Normal 19-41 [facility] Comment on above: Performed By: #### L 100.0100, L500.4050 #### [facility] [address] [place], [address] MCH (RBC) [Entitic mass] 28.5 pg Normal 27.0-32.0 [facility] Comment on above: Performed By: #### L 100.0100, L500.4050 #### [facility] [address] [place], [address] MCHC (RBC) [Mass/Vol] 35.2 g/dL Normal 32-36 [facility] Comment on above: Performed By: #### L 100.0100, L500.4050 #### [facility] [address] [place], [address] MCV (RBC) [Entitic vol] 80.9 fL Normal 80-94 [facility] Comment on above: Performed By: #### L 100.0100, L500.4050 #### [facility] [address] [place], [address] Monocytes/100 WBC (Bld) 7.1 % Normal 0-10 [facility] Comment on above: Performed By: #### L 100.0100, L500.4050 #### [facility] [address] [place], [address] Neutrophils/100 WBC (Bld) 67.2 % Normal 47-70 [facility] Comment on above: Performed By: #### L 100.0100, L500.4050 #### [facility] [address] [place], [address] Nucleated RBC (Bld) [#/Vol] 0 10*3/uL Normal 0-5 [facility] Comment on above: Performed By: #### L 100.0100, L500.4050 #### [facility] [address] [place], [address] Platelet mean volume (Bld) [Entitic vol] 8.9 fL Normal 6.2-12.0 [facility] Comment on above: Performed By: #### L 100.0100, L500.4050 #### [facility] [address] [place], [address] Platelets (Bld) [#/Vol] 226 10*3/uL Normal 150-450 [facility] Comment on above: Performed By: #### L 100.0100, L500.4050 #### [facility] [address] [place], [address] RBC (Bld) [#/Vol] 4.77 10*6/uL Normal 4.6-6.2 [facility] Comment on above: Performed By: #### L 100.0100, L500.4050 #### [facility] [address] [place], [address] RDW SD 40.5 fl Normal 35.1-43.9 [facility] Comment on above: Performed By: #### L 100.0100, L500.4050 #### [facility] [address] [place], [address] WBC (Bld) [#/Vol] 6.0 10*3/uL Normal 4.4-11.0 [facility] Comment on above: Performed By: #### L 100.0100, L500.4050 #### [facility] [address] [place], [address] Calcium [Mass/Vol]Ordered By : Baryr Mathew on 12-08-2024 Serum or plasma calcium measurement (mass/volume) 9.0 mg/dL 8.5-10.1 [facility] Carbon dioxide measurementOr dered By: Barry Mathew on 12-08-2024 CO2 [Moles/Vol] 30.0 mmol/L 21.0-32.0 [facility] Carbon dioxide measurement 30.0 mmol/L 21.0-32.0 [facility] Chloride measurementOrdered By: Barry Mathew on 12-08-2024 Chloride [Moles/Vol] 100 mmol/L 98-107 [facility] Chloride measurement 100 mmol/L 98-107 [facility] Clarity (U)Ordered By: Barry Mathew on 12-08-2024 Urine clarity Clear Clear [facility] Color (U)Ordered By: Barry gordon on 12-08-2024 Urine color determination Yellow Yellow [facility] Comprehensive Metabolic Prof ilon 12-08-2024 Albumin [Mass/Vol] 3.5 g/dL Normal 3.2-5.0 [facility] Comment on above: Performed By: #### L 100.0100, L500.4050 #### [facility] [address] [place], [address] Albumin/Globulin [Mass ratio] 0.9 {ratio} Normal 0.9-2.4 [facility] Comment on above: Performed By: #### L 100.0100, L500.4050 #### [facility] [address] [place], [address] ALK P 98 U/L Normal 45-117 [facility] Comment on above: Performed By: #### L 100.0100, L500.4050 #### [facility] [address] [place], [address] ALT [Catalytic activity/Vol] 16 U/L Normal 16-61 [facility] Comment on above: Performed By: #### L 100.0100, L500.4050 #### [facility] [address] [place], [address] AST [Catalytic activity/Vol] 10 U/L Low 15-37 [facility] Comment on above: Performed By: #### L 100.0100, L500.4050 #### [facility] [address] [place], [address] Bilirubin [Mass/Vol] 0.40 mg/dL Normal 0.20-1.00 [facility] Comment on above: Result Comment: For patients on eltrombopag therapy, use of Dimension [place] TBIL is not recommended. Performed By: #### L 100.0100, L500.4050 #### [facility] [address] [place], [address] BUN/CRE 14.2 RATIO Normal 10-20 [facility] Comment on above: Performed By: #### L 100.0100, L500.4050 #### [facility] [address] [place], [address] CA,Total 9.0 mg/dL Normal 8.5-10.1 [facility] Comment on above: Performed By: #### L 100.0100, L500.4050 #### [facility] [address] [place], [address] Chloride [Moles/Vol] 100 mmol/L Normal 98-107 [facility] Comment on above: Performed By: #### L 100.0100, L500.4050 #### [facility] [address] [place], [address] CO2 [Moles/Vol] 30.0 mmol/L Normal 21.0-32.0 [facility] Comment on above: Performed By: #### L 100.0100, L500.4050 #### [facility] [address] [place], [address] Creatinine [Mass/Vol] 0.85 mg/dL Normal 0.70-1.30 [facility] Comment on above: Result Comment: The validity of the calculated GFR GFRAA in patients over 70 years has not been determined. Clinical correlation is essential. Performed By: #### L 100.0100, L500.4050 #### [facility] [address] [place], [address] ECRCL 110.65 ml/min Normal [facility] Comment on above: Performed By: #### L 100.0100, L500.4050 #### [facility] [address] [place], [address] EST GFR - AA 117 mL/min Normal >60 [facility] Comment on above: Result Comment: Afri can [place] GFR Calc Performed By: #### L 100.0100, L500.4050 #### [facility] [address] [place], [address] GAP 6 Normal 5-15 [facility] Comment on above: Performed By: #### L 100.0100, L500.4050 #### [facility] [address] [place], [address] GFR/1.73 sq M.predicted among non-blacks MDRD (S/P/Bld) [Vol rate/Area] 97 mL/min/{1.73_m2} Normal >60 [facility] Comment on above: Result Comment: Non- GFR Calc Performed By: #### L 100.0100, L500.4050 #### [facility] [address] [place], [address] Globulin (S) [Mass/Vol] 3.8 g/dL Normal 2.2-4.2 [facility] Comment on above: Performed By: #### L 100.0100, L500.4050 #### [facility] [address] [place], [address] Glucose [Mass/Vol] 395 mg/dL High 74-106 [facility] Comment on above: Result Comment: Gluc ose result greater than or equal to 200 mg/dL suggests DIABETES MELLITUS per A.D.A. criteria. Performed By: #### L 100.0100, L500.4050 #### [facility] [address] [place], [address] Potassium [Moles/Vol] 3.9 mmol/L Normal 3.5-5.1 [facility] Comment on above: Performed By: #### L 100.0100, L500.4050 #### [facility] [address] [place], [address] Sodium [Moles/Vol] 136 mmol/L Normal 136-145 [facility] Comment on above: Performed By: #### L 100.0100, L500.4050 #### [facility] [address] [place], [address] T PROT 7.3 g/dL Normal 6.4-8.2 [facility] Comment on above: Performed By: #### L 100.0100, L500.4050 #### [facility] [address] [place], [address] Urea nitrogen [Mass/Vol] 12 mg/dL Normal 7-18 [facility] Comment on above: Performed By: #### L 100.0100, L500.4050 #### [facility] [address] [place], [address] Creatinine [Mass/Vol]Ordered By: Barry Mathew on 12-08-2024 Serum or plasma creatinine measurement (mass/volume) 0.85 mg/dL 0.70-1.30 [facility] Emergency Department Summary on 12-08-2024 Emergency Department Summary [facility] Medical Records Department [address] [place] [address] Emergency Department Summary 12/08/24 MR#: [id number] Acct: [id number] Name: JERALD YODER Rep #: [id number] : 1960 64 From: Barry aMthew MD PCP: Care Physician,No Primary Status:DEP ER [...] 245. No other exacerbating or alleviating factors. [facility] Medical History Partial traumatic amputation of [...] 86 Respir (more content not included)... Normal [facility] Eosinophil percentageOrdered By: Barry Mathew on 12-08-2024 Eosinophils/100 WBC (Bld) 3.8 % 0-5 [facility] Eosinophil percentage 3.8 % 0-5 [facility] Epithelial cells.squamous LM Ql (Urine sed)Ordered By: Barry Mathew on 12-08-2024 Squamous epithelial cells detection in urine sediment by light microscopy 0-5 SEEN /hpf 0-5 [facility] Erythrocyte distribution wid th (RBC) [Ratio]Ordered By: Barry Mathew on 12-08-2024 Erythrocyte distribution width ratio 14.0 % 11.6-14.6 [facility] Erythrocyte distribution width standard deviation 40.5 fl 35.1-43.9 [facility] Erythrocyte distribution wid th ratioOrdered By: Barry Mathew on 12-08-2024 Erythrocyte distribution width (RBC) [Ratio] 14.0 % 11.6-14.6 [facility] Erythrocyte distribution wid th standard deviationOrdered By: Barry Mathew on 12-08-2024 Erythrocyte distribution width (RBC) [Ratio] 40.5 fl 35.1-43.9 [facility] Estimated glomerular filtrat ion rate (GFR) AmericanOrdered By: Barry Mathew on 12-08-2024 Estimated glomerular filtration rate (GFR) 117 mL/min >60 [facility] Estimation of creatinine edinson aranceOrdered By: Barry Mathew on 12-08-2024 Estimation of creatinine clearance 110.65 ml/min [facility] Glomerular filtration rate ( GFR) estimationOrdered By: Barry Mathew on 12-08-2024 GFR/1.73 sq M.predicted among non-blacks MDRD (S/P/Bld) [Vol rate/Area] 97 mL/min/{1.73_m2} >60 [facility] Comment on above: Non- GFR Calc Glomerular filtration rate (GFR) estimation 97 mL/min >60 [facility] Glucose Ql (U)Ordered By: Franco Mathew on 12-08-2024 Urine glucose detection 1000 mg/dl High Normal [facility] Glucose measurementOrdered B y: Barry Mathew on 12-08-2024 Glucose [Mass/Vol] 395 mg/dL High 74-106 [facility] Comment on above: Glucose result great er than or equal to 200 mg/dLsuggests DIABETES MELLITUS per A.D.A. criteria. Glucose measurement 395 mg/dL High 74-106 [facility] Hematocrit Auto (Bld) [Volum e fraction]Ordered By: Barry Mathew on 12-08-2024 Hematocrit (Bld) [Volume fraction] 38.6 % Low 40-54 [facility] Automated blood hematocrit (percentage) 38.6 % Low 40-54 [facility] Hemoglobin measurementOrdere d By: Barry Mathew on 12-08-2024 Hemoglobin (Bld) [Mass/Vol] 13.6 g/dL 13.0-16.5 [facility] Hemoglobin measurement 13.6 g/dL 13.0-16.5 [facility] Immature granulocytes/100 WB C Auto (Bld)Ordered By: Barry Mathew on 12-08-2024 Immature granulocytes/100 WBC (Bld) 0.500 % 0.0-0.9 [facility] Comment on above: IG% - Immature Granu locytes (promyelocytes, myelocytes and metamyelocytes) > 1% indicates that a LEFT SHIFT is Present. Automated immature granulocyte percentage 0.500 % 0.0-0.9 [facility] Influenza virus A and B and SARS-CoV-2 (COVID-19) and Respiratory syncytial virus RNAOrdered By: Barry Mathew on 12-08-2024 SARS-CoV-2 (COVID-19) RNA IOANA+probe Ql (Unsp spec) [facility] Ketones Test strip Ql (U)Ord ered By: Barry Mathew on 12-08-2024 Ketones Ql (U) Negative Negative [facility] Laboratory - Chemistry and C hemistry - challengeOrdered By: Barry Mathew on 12-08-2024 AST [Catalytic activity/Vol] 10 U/L Low 15-37 [facility] Lymphocytes Auto (Unsp spec) [#/Vol]Ordered By: Barry Mathew on 12-08-2024 Absolute lymphocyte count 1.25 X10^3/uL 0.83-4.51 [facility] Lymphocytes/100 WBC Auto (Un sp spec)Ordered By: Barry Mathew on 12-08-2024 Automated lymphocyte count as percentage of total leukocytes 20.7 % 19-41 [facility] M100.678on 12-08-2024 M100.678 Pending SARS-CoV-2 (COVID 19) Negative INFLUENZA A Negative INFLUENZA B Negative RSV PCR Negative Normal [facility] Comment on above: Performed By: #### L 400.0001, M100.678 ####[facility] [id number] [place], [address] MCV (RBC) [Entitic vol]Order ed By: Barry Mathew on 12-08-2024 MCV (mean corpuscular volume) determination 80.9 fL 80-94 [facility] MCV (mean corpuscular volume ) determinationOrdered By: Barry Mathew on 12-08-2024 MCV (RBC) [Entitic vol] 80.9 fL 80-94 [facility] Mean corpuscular hemoglobin (MCH) determinationOrdered By: Barry Mathew on 12-08-2024 MCH (RBC) [Entitic mass] 28.5 pg 27.0-32.0 [facility] Mean corpuscular hemoglobin (MCH) determination 28.5 pg 27.0-32.0 [facility] Mean corpuscular hemoglobin concentration (MCHC) determinationOrdered By: Barry Mathew on 12-08-2024 MCHC (RBC) [Mass/Vol] 35.2 g/dL 32-36 [facility] Mean corpuscular hemoglobin concentration (MCHC) determination 35.2 g/dL -36 [facility] Mean platelet volume determi nationOrdered By: Barry Mathew on 12-08-2024 Platelet mean volume (Bld) [Entitic vol] 8.9 fL 6.2-12.0 [facility] Mean platelet volume determination 8.9 fl 6.2-12.0 [facility] Microscopic analysis of urin e for red blood cells (RBC)Ordered By: Barry Mathew on 12-08-2024 Microscopic analysis of urine for red blood cells (RBC) 0 SEEN /hpf 0-5 [facility] Monocyte percentageOrdered B y: Barry Mathew on 12-08-2024 Monocytes/100 WBC (Bld) 7.1 % 0-10 [facility] Monocyte [facility] 7.1 % 0-[facility] Mucus LM Ql (Urine sed)Order ed By: Barry Mathew on 12-08-2024 Mucus Ql (Urine sed) 0 SEEN /hpf [facility] Neutrophil percentageOrdered By: Barry Mathew on 12-08-2024 Neutrophils/100 WBC (Bld) 67.2 % 47-70 [facility] Neutrophil percentage 67.2 % 47-70 [facility] Nitrite Test strip Ql (U)Ord ered By: Barry Mathew on 12-08-2024 Nitrite Ql (U) Negative Negative [facility] No Panel InformationOrdered By: Barry Mathew on 12-08-2024 10 U/L Low 15-37 [facility] Nucleated red blood cell per centageOrdered By: Barry Mathew on 12-08-2024 Nucleated RBC/100 WBC (Bld) [Ratio] 0 % 0-5 [facility] Nucleated red blood cell percentage 0 % 0-5 [facility] Platelet countOrdered By: Franco Mathew on 12-08-2024 Platelets (Bld) [#/Vol] 226 10*3/uL 150-450 [facility] Platelet count 226 K/mm3 150-450 [facility] Potassium measurementOrdered By: Barry Mathew on 12-08-2024 Potassium [Moles/Vol] 3.9 mmol/L 3.5-5.1 [facility] Potassium measurement 3.9 mmol/L 3.5-5.1 [facility] Protein Test strip Ql (U)Ord ered By: Barry Mathew on 12-08-2024 Protein Ql (U) Negative Negative [facility] RBC Auto (Bld) [#/Vol]Ordere d By: Barry Mathew on 02-08-2025 RBC (Bld) [#/Vol] 4.77 10*6/uL 4.6-6.2 [facility] Automated blood erythrocyte count 4.77 M/mm3 4.6-6.2 [facility] Serum anion gap measurementO rdered By: Barry Mathew on 12-08-2024 Anion gap [Moles/Vol] 6 mmol/L 5-15 [facility] Serum anion gap measurement 6 5-15 [facility] Serum globulin measurementOr dered By: Barry Mathew on 12-08-2024 Globulin (S) [Mass/Vol] 3.8 g/dL 2.2-4.2 [facility] Serum globulin measurement 3.8 g/dL 2.2-4.2 [facility] Serum or plasma alanine wagoner otransferase (ALT) measurementOrdered By: Barry Mathew on 12-08-2024 ALT [Catalytic activity/Vol] 16 U/L 16-61 [facility] Serum or plasma albumin yayo urement (mass/volume)Ordered By: Barry Mathew on 12-08-2024 Albumin [Mass/Vol] 3.5 g/dL 3.2-5.0 [facility] Serum or plasma alkaline andrzej sphatase measurementOrdered By: Barry Mathew on 12-08-2024 ALP [Catalytic activity/Vol] 98 U/L 45-117 [facility] Serum or plasma calcium yayo urement (mass/volume)Ordered By: Barry Mathew on 12-08-2024 Calcium [Mass/Vol] 9.0 mg/dL 8.5-10.1 [facility] Serum or plasma creatinine m easurement (mass/volume)Ordered By: Barry Mathew on 12-08-2024 Creatinine [Mass/Vol] 0.85 mg/dL 0.70-1.30 [facility] Comment on above: The validity of the calculated GFR & GFRAA in patients over 70 years has not been determined. Clinical correlation is essential. Serum or plasma urea nitroge n measurement (mass/volume)Ordered By: Barry Mathew on 12-08-2024 Urea nitrogen [Mass/Vol] 12 mg/dL 7-18 [facility] Sodium levelOrdered By: Barry Mathew on 12-08-2024 Sodium [Moles/Vol] 136 mmol/L 136-145 [facility] Sodium level 136 mmol/L 136-145 [facility] Specific gravity (U) [Rel de nsity]Ordered By: Barry Mathew on 12-08-2024 Urine specific gravity measurement 1.010 1.002-1.030 [facility] Squamous epithelial cells de tection in urine sediment by light microscopyOrdered By: Barry Mathew on 12-08-2024 Epithelial cells.squamous LM Ql (Urine sed) 0-5 SEEN /hpf 0-5 [facility] Total proteinOrdered By: Silva Mathew on 12-08-2024 Protein [Mass/Vol] 7.3 g/dL 6.4-8.2 [facility] Total protein 7.3 g/dL 6.4-8.2 [facility] Urea nitrogen [Mass/Vol]Orde red By: Barry Mathew on 12-08-2024 Serum or plasma urea nitrogen measurement (mass/volume) 12 mg/dL 7-18 [facility] Urinalysis, Completeon 12-08 BACTERIA 1+ /hpf Normal None Seen [facility] Comment on above: Order Comment: NO CTOR TO SPECIFY Performed By: #### L 400.0001, ####[facility] [id number] [place], [place], [id number] EPI,SQUAMOUS 0-5 SEEN Normal 0-5 [facility] Comment on above: Order Comment: NO CTOR TO SPECIFY Performed By: #### L 400.0001, 8 ####[facility] [address] [place], [address] RBC 0 SEEN Normal 0-5 [facility] Comment on above: Order Comment: NO CTOR TO SPECIFY Performed By: #### L 400.0001, 8 ####[facility] [address] [place], [address] Mucus Ql (Urine sed) 0 SEEN Normal [facility] Comment on above: Order Comment: NO CTOR TO SPECIFY Performed By: #### L 400.0001, 678 ####[facility] [address] [place], [place], [address] WBC 0 SEEN Normal 0-5 [facility] Comment on above: Order Comment: COLLE CTOR TO SPECIFY Performed By: #### L 400.0001, M100.678 ####[facility] [address] [place], [place], [id number] Urine clarityOrdered By: Silva Mathew on 12-08-2024 Clarity (U) Clear Clear [facility] Urine color determinationOrd ered By: Barry Mathew on 12-08-2024 Color (U) Yellow Yellow [facility] Urine glucose detectionOrder ed By: Barry Mathew on 12-08-2024 Glucose Ql (U) 1000 mg/dl High Normal [facility] Urine leukocyte esterase det ection by dipstickOrdered By: Barry Mathew on 12-08-2024 Leukocyte esterase Test strip Ql (U) Negative Negative [facility] Urine pHOrdered By: Barry otoole on 12-08-2024 pH (U) 6.0 [pH] 5.0 - 8.0 [facility] Urine sediment bacteria coun t by microscopy (number/high power field)Ordered By: Barry Mathew on 12-08-2024 Bacteria LM.HPF (Urine sed) [#/Area] 1 /[HPF] None Seen [facility] Urine specific gravity measu rementOrdered By: Barry Mathew on 12-08-2024 Specific gravity (U) [Rel density] 1.010 1.002-1.030 [facility] Urine total bilirubin detect ion by test stripOrdered By: Barry Mathew on 12-08-2024 Urine total bilirubin detection by test strip Negative Negative [facility] Urine urobilinogen measureme ntOrdered By: Barry Mathew on 12-08-2024 Urobilinogen Ql (U) Normal mg/dl Normal [facility] Urobilinogen Ql (U)Ordered B y: Barry Mathew on 12-08-2024 Urine urobilinogen measurement Normal mg/dl Normal [facility] White blood cell (WBC) count Ordered By: Barry Mathew on 12-08-2024 WBC (Bld) [#/Vol] 6.0 10*3/uL 4.4-11.0 [facility] White blood cell (WBC) count 6.0 K/mm3 4.4-11.0 [facility] White blood cell countOrdere d By: Barry Mathew on 12-08-2024 White blood cell count 0 SEEN /hpf 0-5 [facility] White blood cell count 0 SEEN /hpf [facility] pH (U)Ordered By: Barry garcia on 12-08-2024 Urine pH 6.0 5.0 - 8.0 [facility] ALP [Catalytic activity/Vol] Ordered By: Pedro Krishnan on 11-27-2024 Serum or plasma alkaline phosphatase measurement 107 U/L 45-117 [facility] ALT [Catalytic activity/Vol] Ordered By: Pedro Krishnan on 11-27-2024 Serum or plasma alanine aminotransferase (ALT) measurement 16 U/L 16-61 [facility] Absolute lymphocyte countOrd ered By: Pedro Krishnan on 11-27-2024 Lymphocytes Auto (Unsp spec) [#/Vol] 1.51 10*3/uL 0.83-4.51 [facility] Absolute neutrophil countOrd ered By: Pedro Krishnan on 11-27-2024 Neutrophils (Bld) [#/Vol] 6.6 10*3/uL 2.0-7.7 [facility] Absolute neutrophil count 6.6 X10^3/uL 2.0-7.7 [facility] Albumin [Mass/Vol]Ordered By : Pedro Krishnan on 11-27-2024 Serum or plasma albumin measurement (mass/volume) 3.6 g/dL 3.2-5.0 [facility] Albumin to globulin ratioOrd ered By: Pedro Krishnan on 11-27-2024 Albumin/Globulin [Mass ratio] 1.0 {ratio} 0.9-2.4 [facility] Albumin to globulin ratio 1.0 RATIO 0.9-2.4 [facility] Automated lymphocyte count a s percentage of total leukocytesOrdered By: Pedro Krishnan on 11-27-2024 Lymphocytes/100 WBC Auto (Unsp spec) 16.8 % Low 19-41 [facility] Bacteria LM.HPF (Urine sed) [#/Area]Ordered By: Pedro Krishnan on 11-27-2024 Urine sediment bacteria count by microscopy (number/high power field) RARE /hpf None Seen [facility] Basophil percentageOrdered B y: Pedro Krishnan on 11-27-2024 Basophils/100 WBC (Bld) 0.7 % 0-1 [facility] Basophil percentage 0.7 % 0-1 [facility] Bilirubin Test strip Ql (U)O rdered By: Pedro Krishnan on 11-27-2024 Bilirubin Ql (U) Negative Negative [facility] Bilirubin, totalOrdered By: Pedro Krishnan on 11-27-2024 Bilirubin [Mass/Vol] 0.40 mg/dL 0.20-1.00 [facility] Comment on above: For patients on eltr ombopag therapy, use of Dimension [place] TBIL is not recommended. Bilirubin, total 0.40 mg/dL 0.20-1.00 [facility] Blood urea nitrogen (BUN)/cr eatinine ratioOrdered By: Pedro Krishnan on 11-27-2024 Urea nitrogen/Creatinine [Mass ratio] 12.7 mg/mg - [facility] Blood urea nitrogen (BUN)/creatinine ratio 12.7 RATIO 08-19 [facility] CBC W/Diff, Automatedon 11-01 Absolute Lymph 1.51 X10 3/uL Normal 0.83-4.51 [facility] Comment on above: Performed By: #### L 100.0100, L500.4050 #### [facility] [address] [place], [address] Absolute Neut 6.6 X10 3/uL Normal 2.0-7.7 [facility] Comment on above: Performed By: #### L 100.0100, L500.4050 #### [facility] [address] [place], [address] Basophils/100 WBC (Bld) 0.7 % Normal 0-1 [facility] Comment on above: Performed By: #### L 100.0100, L500.4050 #### [facility] [address] [place], [address] Eosinophils/100 WBC (Bld) 2.8 % Normal 0-5 [facility] Comment on above: Performed By: #### L 100.0100, L500.4050 #### [facility] [address] [place], [address] Erythrocyte distribution width (RBC) [Ratio] 14.2 % Normal 11.6-14.6 [facility] Comment on above: Performed By: #### L 100.0100, L500.4050 #### [facility] [address] [place], [address] Hematocrit (Bld) [Volume fraction] 41.1 % Normal 40-54 [facility] Comment on above: Performed By: #### L 100.0100, L500.4050 #### [facility] [address] [place], [address] Hemoglobin (Bld) [Mass/Vol] 14.2 g/dL Normal 13.0-16.5 [facility] Comment on above: Performed By: #### L 100.0100, L500.4050 #### [facility] [address] [place], [address] IG% 0.300 Normal 0.0-0.9 [facility] Comment on above: Result Comment: IG% - Immature Granulocytes (promyelocytes, myelocytes and metamyelocytes) > 1% indicates that a LEFT SHIFT is Present. Performed By: #### L 100.0100, L500.4050 #### [facility] [address] [place], [address] Lymphocytes/100 WBC (Bld) 16.8 % Low 19-41 [facility] Comment on above: Performed By: #### L 100.0100, L500.4050 #### [facility] [address] [place], [address] MCH (RBC) [Entitic mass] 28.2 pg Normal 27.0-32.0 [facility] Comment on above: Performed By: #### L 100.0100, L500.4050 #### [facility] [address] [place], [address] MCHC (RBC) [Mass/Vol] 34.5 g/dL Normal 32-36 [facility] Comment on above: Performed By: #### L 100.0100, L500.4050 #### [facility] [address] [place], [address] MCV (RBC) [Entitic vol] 81.7 fL Normal 80-94 [facility] Comment on above: Performed By: #### L 100.0100, L500.4050 #### [facility] [address] [place], [address] Monocytes/100 WBC (Bld) 5.5 % Normal 0-10 [facility] Comment on above: Performed By: #### L 100.0100, L500.4050 #### [facility] [address] [place], [address] Neutrophils/100 WBC (Bld) 73.9 % High 47-70 [facility] Comment on above: Performed By: #### L 100.0100, L500.4050 #### [facility] [address] [place], [address] Nucleated RBC (Bld) [#/Vol] 0 10*3/uL Normal 0-5 [facility] Comment on above: Performed By: #### L 100.0100, L500.4050 #### [facility] [address] [place], [address] Platelet mean volume (Bld) [Entitic vol] 9.3 fL Normal 6.2-12.0 [facility] Comment on above: Performed By: #### L 100.0100, L500.4050 #### [facility] [address] [place], [address] Platelets (Bld) [#/Vol] 231 10*3/uL Normal 150-450 [facility] Comment on above: Performed By: #### L 100.0100, L500.4050 #### [facility] [address] [place], [address] RBC (Bld) [#/Vol] 5.03 10*6/uL Normal 4.6-6.2 [facility] Comment on above: Performed By: #### L 100.0100, L500.4050 #### [facility] [address] [place], [address] RDW SD 41.3 fl Normal 35.1-43.9 [facility] Comment on above: Performed By: #### L 100.0100, L500.4050 #### [facility] [address] [place], [address] WBC (Bld) [#/Vol] 9.0 10*3/uL Normal 4.4-11.0 [facility] Comment on above: Performed By: #### L 100.0100, L500.4050 #### [facility] [address] [place], [address] Calcium [Mass/Vol]Ordered By : Pedro Krishnan on 11-27-2024 Serum or plasma calcium measurement (mass/volume) 8.8 mg/dL 8.5-10.1 [facility] Carbon dioxide measurementOr dered By: Pedro Krishnan on 11-27-2024 CO2 [Moles/Vol] 22.0 mmol/L 21.0-32.0 [facility] Carbon dioxide measurement 22.0 mmol/L 21.0-32.0 [facility] Chloride measurementOrdered By: Pedro Krishnan on 11-27-2024 Chloride [Moles/Vol] 101 mmol/L 98-107 [facility] Chloride measurement 101 mmol/L 98-107 [facility] Clarity (U)Ordered By: Pedro Krishnan on 11-27-2024 Urine clarity Clear Clear [facility] Color (U)Ordered By: Pedro persaud on 11-27-2024 Urine color determination Yellow Yellow [facility] Comprehensive Metabolic Prof ilon 11-27-2024 Albumin [Mass/Vol] 3.6 g/dL Normal 3.2-5.0 [facility] Comment on above: Performed By: #### L 100.0100, L500.4050 #### [facility] [address] [place], [address] Albumin/Globulin [Mass ratio] 1.0 {ratio} Normal 0.9-2.4 [facility] Comment on above: Performed By: #### L 100.0100, L500.4050 #### [facility] [address] [place], [address] ALK P 107 U/L Normal 45-117 [facility] Comment on above: Performed By: #### L 100.0100, L500.4050 #### [facility] [address] [place], [address] ALT [Catalytic activity/Vol] 16 U/L Normal 16-61 [facility] Comment on above: Performed By: #### L 100.0100, L500.4050 #### [facility] [address] [place], [address] AST [Catalytic activity/Vol] 11 U/L Low 15-37 [facility] Comment on above: Performed By: #### L 100.0100, L500.4050 #### [facility] [address] [place], [address] Bilirubin [Mass/Vol] 0.40 mg/dL Normal 0.20-1.00 [facility] Comment on above: Result Comment: For patients on eltrombopag therapy, use of Dimension [place] TBIL is not recommended. Performed By: #### L 100.0100, L500.4050 #### [facility] [address] [place], [address] BUN/CRE 12.7 RATIO Normal 10-20 [facility] Comment on above: Performed By: #### L 100.0100, L500.4050 #### [facility] [address] [place], [address] CA,Total 8.8 mg/dL Normal 8.5-10.1 [facility] Comment on above: Performed By: #### L 100.0100, L500.4050 #### [facility] [address] [place], [address] Chloride [Moles/Vol] 101 mmol/L Normal 98-107 [facility] Comment on above: Performed By: #### L 100.0100, L500.4050 #### [facility] [address] [place], [address] CO2 [Moles/Vol] 22.0 mmol/L Normal 21.0-32.0 [facility] Comment on above: Performed By: #### L 100.0100, L500.4050 #### [facility] [address] [place], [address] Creatinine [Mass/Vol] 0.94 mg/dL Normal 0.70-1.30 [facility] Comment on above: Result Comment: The validity of the calculated GFR GFRAA in patients over 70 years has not been determined. Clinical correlation is essential. Performed By: #### L 100.0100, L500.4050 #### [facility] [address] [place], [address] EST GFR - AA 103 mL/min Normal >60 [facility] Comment on above: Result Comment: Afri can [place] GFR Calc Performed By: #### L 100.0100, L500.4050 #### [facility] [address] [place], [address] GAP 10 Normal 5-15 [facility] Comment on above: Performed By: #### L 100.0100, L500.4050 #### [facility] [address] [place], [address] GFR/1.73 sq M.predicted among non-blacks MDRD (S/P/Bld) [Vol rate/Area] 86 mL/min/{1.73_m2} Normal >60 [facility] Comment on above: Result Comment: Non- GFR Calc Performed By: #### L 100.0100, L500.4050 #### [facility] [address] [place], [address] Globulin (S) [Mass/Vol] 3.7 g/dL Normal 2.2-4.2 [facility] Comment on above: Performed By: #### L 100.0100, L500.4050 #### [facility] [address] [place], [address] Glucose [Mass/Vol] 373 mg/dL High 74-106 [facility] Comment on above: Result Comment: Gluc ose result greater than or equal to 200 mg/dL suggests DIABETES MELLITUS per A.D.A. criteria. Performed By: #### L 100.0100, L500.4050 #### [facility] [address] [place], [address] Potassium [Moles/Vol] 3.8 mmol/L Normal 3.5-5.1 [facility] Comment on above: Performed By: #### L 100.0100, L500.4050 #### [facility] [address] [place], [address] Sodium [Moles/Vol] 133 mmol/L Low 136-145 [facility] Comment on above: Performed By: #### L 100.0100, L500.4050 #### [facility] [address] [place], [address] T PROT 7.3 g/dL Normal 6.4-8.2 [facility] Comment on above: Performed By: #### L 100.0100, L500.4050 #### [facility] [address] [place], [address] Urea nitrogen [Mass/Vol] 12 mg/dL Normal 7-18 [facility] Comment on above: Performed By: #### L 100.0100, L500.4050 #### [facility] [address] [place], [address] Creatinine [Mass/Vol]Ordered By: Pedro Krishnan on 11-27-2024 Serum or plasma creatinine measurement (mass/volume) 0.94 mg/dL 0.70-1.30 [facility] Emergency Department Summary on 11-27-2024 Emergency Department Summary [facility] Medical Records Department [address] [place] [address] Emergency Department Summary 11/27/24 MR#: [id number] Acct: [id number] Name: JERALD YODER Rep #: [id number] : 1960 64 From: Pedro Krishnan DO [...] this and he has been passing gas. [facility] Medical History Partial traumatic amputation of [...] no juana (more content not included)... Normal [facility] Eosinophil percentageOrdered By: Pedro Krishnan on 11-27-2024 Eosinophils/100 WBC (Bld) 2.8 % 0-5 [facility] Eosinophil percentage 2.8 % 0-5 [facility] Erythrocyte distribution wid th (RBC) [Ratio]Ordered By: Pedro Krishnan on 11-27-2024 Erythrocyte distribution width ratio 14.2 % 11.6-14.6 [facility] Erythrocyte distribution width standard deviation 41.3 fl 35.1-43.9 [facility] Erythrocyte distribution wid th ratioOrdered By: Pedro Krishnan on 11-27-2024 Erythrocyte distribution width (RBC) [Ratio] 14.2 % 11.6-14.6 [facility] Erythrocyte distribution wid th standard deviationOrdered By: Pedro Krishnan on 11-27-2024 Erythrocyte distribution width (RBC) [Ratio] 41.3 fl 35.1-43.9 [facility] Estimated glomerular filtrat ion rate (GFR) AmericanOrdered By: Pedro Krishnan on 11-27-2024 Estimated glomerular filtration rate (GFR) 103 mL/min >60 [facility] Glomerular filtration rate ( GFR) estimationOrdered By: Pedro Krishnan on 11-27-2024 GFR/1.73 sq M.predicted among non-blacks MDRD (S/P/Bld) [Vol rate/Area] 86 mL/min/{1.73_m2} >60 [facility] Comment on above: Non- GFR Calc Glomerular filtration rate (GFR) estimation 86 mL/min >60 [facility] Glucose Ql (U)Ordered By: Bridger Krishnan on 11-27-2024 Urine glucose detection 1000 mg/dl High Normal [facility] Glucose measurementOrdered B y: Pedro Krishnan on 11-27-2024 Glucose [Mass/Vol] 373 mg/dL High 74-106 [facility] Comment on above: Glucose result great er than or equal to 200 mg/dLsuggests DIABETES MELLITUS per A.D.A. criteria. Glucose measurement 373 mg/dL High 74-106 [facility] Hematocrit Auto (Bld) [Volum e fraction]Ordered By: Pedro Krishnan on 11-27-2024 Hematocrit (Bld) [Volume fraction] 41.1 % 40-54 [facility] Automated blood hematocrit (percentage) 41.1 % 40-54 [facility] Hemoglobin measurementOrdere d By: Pedro Krishnan on 11-27-2024 Hemoglobin (Bld) [Mass/Vol] 14.2 g/dL 13.0-16.5 [facility] Hemoglobin measurement 14.2 g/dL 13.0-16.5 [facility] Immature granulocytes/100 WB C Auto (Bld)Ordered By: Pedro Krishnan on 11-27-2024 Immature granulocytes/100 WBC (Bld) 0.300 % 0.0-0.9 [facility] Comment on above: IG% - Immature Granu locytes (promyelocytes, myelocytes and metamyelocytes) > 1% indicates that a LEFT SHIFT is Present. Automated immature granulocyte percentage 0.300 % 0.0-0.9 [facility] Ketones Test strip Ql (U)Ord ered By: Pedro Krishnan on 11-27-2024 Ketones Ql (U) Negative Negative [facility] - Chemistry and C hemistry - challengeOrdered By: Pedro Krishnan on 11-27-2024 AST [Catalytic activity/Vol] 11 U/L Low 15-37 [facility] Lipaseon 11-27-2024 Lipase [Catalytic activity/Vol] 23 U/L Normal 13-75 [facility] Comment on above: Result Comment: Plea se note: LIPASE revised reference range effective 23. New Lipase methodology. Expected to produce lower values than the previous assay method. NEW Reference Range: 13 - 75 U/L Performed By: #### L 100.0100, L500.4050 #### [facility] [address] [place] [address], [address] Lipase measurementOrdered By : Pedro Krishnan on 11-27-2024 Lipase [Catalytic activity/Vol] 23 U/L 13-75 [facility] Comment on above: Please note:LIPASE r evised reference range effective 23. New Lipase methodology. Expected to produce lower values than the previous assay method. NEW Reference Range: 13 - 75 U/L Lipase measurement 23 U/L 13-75 [facility] Lymphocytes Auto (Unsp spec) [#/Vol]Ordered By: Pedro Krishnan on 11-27-2024 Absolute lymphocyte count 1.51 X10^3/uL 0.83-4.51 [facility] Lymphocytes/100 WBC Auto (Un sp spec)Ordered By: Pedro Krishnan on 11-27-2024 Automated lymphocyte count as percentage of total leukocytes 16.8 % Low 19-41 [facility] MCV (RBC) [Entitic vol]Order ed By: Pedro Krishnan on 11-27-2024 MCV (mean corpuscular volume) determination 81.7 fL 80-94 [facility] MCV (mean corpuscular volume ) determinationOrdered By: Pedro Krishnan on 11-27-2024 MCV (RBC) [Entitic vol] 81.7 fL 80-94 [facility] Mean corpuscular hemoglobin (MCH) determinationOrdered By: Pedro Krishnan on 11-27-2024 MCH (RBC) [Entitic mass] 28.2 pg 27.0-32.0 [facility] Mean corpuscular hemoglobin (MCH) determination 28.2 pg 27.0-32.0 [facility] Mean corpuscular hemoglobin concentration (MCHC) determinationOrdered By: Pedro Krishnan on 11-27-2024 MCHC (RBC) [Mass/Vol] 34.5 g/dL 32-36 [facility] Mean corpuscular hemoglobin concentration (MCHC) determination 34.5 g/dL 32-36 [facility] Mean platelet volume determi nationOrdered By: Pedro Krishnan on 11-27-2024 Platelet mean volume (Bld) [Entitic vol] 9.3 fL 6.2-12.0 [facility] Mean platelet volume determination 9.3 fl 6.2-12.0 [facility] Microscopic analysis of urin e for red blood cells (RBC)Ordered By: Pedro Krishnan on 11-27-2024 Microscopic analysis of urine for red blood cells (RBC) 0-5 SEEN /hpf 0-5 [facility] Monocyte percentageOrdered B y: Pedro Krishnan on 11-27-2024 Monocytes/100 WBC (Bld) 5.5 % 0-10 [facility] Monocyte percentage 5.5 % 0-10 [facility] Mucus LM Ql (Urine sed)Order ed By: Pedro Krishnan on 11-27-2024 Mucus Ql (Urine sed) 0 SEEN /hpf [facility] Mucus detection in urine sediment by light microscopy 0 SEEN /hpf [facility] Neutrophil percentageOrdered By: Pedro Krishnan on 11-27-2024 Neutrophils/100 WBC (Bld) 73.9 % High 47-70 [facility] Neutrophil percentage 73.9 % High 47-70 [facility] Nitrite Test strip Ql (U)Ord ered By: Pedro Krishnan on 11-27-2024 Nitrite Ql (U) Negative Negative [facility] No Panel InformationOrdered By: Pedro Krishnan on 11-27-2024 11 U/L Low 15-37 [facility] Nucleated red blood cell per centageOrdered By: Pedro Krishnan on 11-27-2024 Nucleated RBC/100 WBC (Bld) [Ratio] 0 % 0-5 [facility] Nucleated red blood cell percentage 0 % 0-5 [facility] Platelet countOrdered By: Bridger Krishnan on 11-27-2024 Platelets (Bld) [#/Vol] 231 10*3/uL 150-450 [facility] Platelet count 231 K/mm3 150-450 [facility] Potassium measurementOrdered By: Pedro Krishnan on 11-27-2024 Potassium [Moles/Vol] 3.8 mmol/L 3.5-5.1 [facility] Potassium measurement 3.8 mmol/L 3.5-5.1 [facility] Protein Test strip Ql (U)Ord ered By: Pedro Krishnan on 11-27-2024 Protein Ql (U) 30 mg/dl High Negative [facility] Urine protein assay by test strip, semi-quantitative 30 mg/dl High Negative [facility] RBC Auto (Bld) [#/Vol]Ordere d By: Pedro Krishnan on 11-27-2024 RBC (Bld) [#/Vol] 5.03 10*6/uL 4.6-6.2 [facility] Automated blood erythrocyte count 5.03 M/mm3 4.6-6.2 [facility] Serum anion gap measurementO rdered By: Pedro Krishnan on 11-27-2024 Anion gap [Moles/Vol] 10 mmol/L 5-15 [facility] Serum anion gap measurement 10 5-15 [facility] Serum globulin measurementOr dered By: Pedro Krishnan on 11-27-2024 Globulin (S) [Mass/Vol] 3.7 g/dL 2.2-4.2 [facility] Serum globulin measurement 3.7 g/dL 2.2-4.2 [facility] Serum or plasma alanine wagoner otransferase (ALT) measurementOrdered By: Pedro Krishnan on 11-27-2024 ALT [Catalytic activity/Vol] 16 U/L 16-61 [facility] Serum or plasma albumin yayo urement (mass/volume)Ordered By: Pedro Krishnan on 11-27-2024 Albumin [Mass/Vol] 3.6 g/dL 3.2-5.0 [facility] Serum or plasma alkaline andrzej sphatase measurementOrdered By: Pedro Krishnan on 11-27-2024 ALP [Catalytic activity/Vol] 107 U/L 45-117 [facility] Serum or plasma calcium yayo urement (mass/volume)Ordered By: Pedro Krishnan on 11-27-2024 Calcium [Mass/Vol] 8.8 mg/dL 8.5-10.1 [facility] Serum or plasma creatinine m easurement (mass/volume)Ordered By: Pedro Krishnan on 11-27-2024 Creatinine [Mass/Vol] 0.94 mg/dL 0.70-1.30 [facility] Comment on above: The validity of the calculated GFR & GFRAA in patients over 70 years has not been determined. Clinical correlation is essential. Serum or plasma urea nitroge n measurement (mass/volume)Ordered By: Pedro Krishnan on 11-27-2024 Urea nitrogen [Mass/Vol] 12 mg/dL 7-18 [facility] Sodium levelOrdered By: Vinicius Krishnan on 11-27-2024 Sodium [Moles/Vol] 133 mmol/L Low 136-145 [facility] Sodium level 133 mmol/L Low 136-145 [facility] Specific gravity (U) [Rel de nsity]Ordered By: Pedro Krishnan on 11-27-2024 Urine specific gravity measurement 1.020 1.002-1.030 [facility] Squamous epithelial cells de tection in urine sediment by light microscopyOrdered By: Pedro Krishnan on 11-27-2024 Epithelial cells.squamous LM Ql (Urine sed) 0-5 SEEN /hpf 0-5 [facility] Total proteinOrdered By: Issac Krishnan on 11-27-2024 Protein [Mass/Vol] 7.3 g/dL 6.4-8.2 [facility] Total protein 7.3 g/dL 6.4-8.2 [facility] Urea nitrogen [Mass/Vol]Orde red By: Pedro Krishnan on 11-27-2024 Serum or plasma urea nitrogen measurement (mass/volume) 12 mg/dL 7-18 [facility] Urinalysis, Completeon 11-27 BACTERIA RARE Normal None Seen [facility] Comment on above: Order Comment: CLEAN CATCH Performed By: #### L 400.0001 ####[facility] [address] [facility] [address] EPI,SQUAMOUS 0-5 SEEN Normal 0-5 [facility] Comment on above: Order Comment: CLEAN CATCH Performed By: #### L 400.0001 ####[facility] [address] [facility] [address] RBC 0-5 SEEN Normal 0-5 [facility] Comment on above: Order Comment: CLEAN CATCH Performed By: #### L 400.0001 ####[facility] [address] [place], [address] WBC 0-5 SEEN Normal 0-5 [facility] Comment on above: Order Comment: CLEAN CATCH Performed By: #### L 400.0001 ####[facility] [address] [place], [address] YEAST 1+ /hpf Normal None Seen [facility] Comment on above: Order Comment: CLEAN CATCH Performed By: #### L 400.0001 ####[facility] [address] [place], [address] Mucus Ql (Urine sed) 0 SEEN Normal [facility] Comment on above: Order Comment: CLEAN CATCH Performed By: #### L 400.0001 ####[facility] [address] [place], [address] Urine blood detectionOrdered By: Pedro Krishnan on 11-27-2024 Urine blood detection 10 /ul High Negative [facility] Urine clarityOrdered By: Issac Krishnan on 11-27-2024 Clarity (U) Clear Clear [facility] Urine color determinationOrd ered By: Pedro Krishnan on 11-27-2024 Color (U) Yellow Yellow [facility] Urine glucose detectionOrder ed By: Pedro Krishnan on 11-27-2024 Glucose Ql (U) 1000 mg/dl High Normal [facility] Urine leukocyte esterase det ection by dipstickOrdered By: Pedro Krishnan on 11-27-2024 Leukocyte esterase Test strip Ql (U) Negative Negative [facility] Urine pHOrdered By: Pedro wynne on 11-27-2024 pH (U) 6.0 [pH] 5.0 - 8.0 [facility] Urine sediment bacteria coun t by microscopy (number/high power field)Ordered By: Pedro Krishnan on 11-27-2024 Bacteria LM.HPF (Urine sed) [#/Area] RARE /hpf None Seen [facility] Urine sediment yeast count b y microscopy (number/high powered field)Ordered By: Pedro Krishnan on 11-27-2024 Yeast LM.HPF (Urine sed) [#/Area] 1 /[HPF] None Seen [facility] Urine specific gravity measu rementOrdered By: Pedro Krishnan on 11-27-2024 Specific gravity (U) [Rel density] 1.020 1.002-1.030 [facility] Urine total bilirubin detect ion by test stripOrdered By: Pedro Krishnan on 11-27-2024 Urine total bilirubin detection by test strip Negative Negative [facility] Urine urobilinogen measureme ntOrdered By: Pedro Krishnan on 11-27-2024 Urobilinogen Ql (U) Normal mg/dl Normal [facility] Urobilinogen Ql (U)Ordered B y: Pedro Krishnan on 11-27-2024 Urine urobilinogen measurement Normal mg/dl Normal [facility] White blood cell (WBC) count Ordered By: Pedro Krishnan on 11-27-2024 WBC (Bld) [#/Vol] 9.0 10*3/uL 4.4-11.0 [facility] White blood cell (WBC) count 9.0 K/mm3 4.4-11.0 [facility] White blood cell countOrdere d By: Pedro Krishnan on 11-27-2024 White blood cell count 0-5 SEEN /hpf 0-5 [facility] White blood cell count 0-5 SEEN /hpf 0-5 [facility] Yeast LM.HPF (Urine sed) [#/ Area]Ordered By: Pedro Krishnan on 11-27-2024 Urine sediment yeast count by microscopy (number/high powered field) 1+ /hpf None Seen [facility] pH (U)Ordered By: Pedro perez on 11-27-2024 Urine pH 6.0 5.0 - 8.0 [facility] Absolute neutrophil countOrd ered By: Johann Lemons on 10-30-2024 Absolute neutrophil count 4.5 X10^3/uL 2.0-7.7 [facility] Basic Metabolic Profile (BMP )on 10-30-2024 BUN/CRE 21.2 RATIO High 10-20 [facility] Comment on above: Performed By: #### L 100.0100, L501.5200, L500.2500 ####[facility] [address] [place], [address] CA,Total 9.0 mg/dL Normal 8.5-10.1 [facility] Comment on above: Performed By: #### L 100.0100, L501.5200, L500.2500 ####[facility] [address] [place], [address] Chloride [Moles/Vol] 101 mmol/L Normal 98-107 [facility] Comment on above: Performed By: #### L 100.0100, L501.5200, L500.2500 ####[facility] [address] [place], [address] CO2 [Moles/Vol] 29.0 mmol/L Normal 21.0-32.0 [facility] Comment on above: Performed By: #### L 100.0100, L501.5200, L500.2500 ####[facility] [address] [place], [address] Creatinine [Mass/Vol] 0.90 mg/dL Normal 0.70-1.30 [facility] Comment on above: Result Comment: The validity of the calculated GFR GFRAA in patients over 70 years has not been determined. Clinical correlation is essential. Performed By: #### L 100.0100, L501.5200, L500.2500 ####[facility] [address] [place], [address] EST GFR - AA 110 mL/min Normal >60 [facility] Comment on above: Result Comment: Afri can [place] GFR Calc Performed By: #### L 100.0100, L501.5200, L500.2500 ####[facility] [address] [place], [address] GAP 7 Normal 5-15 [facility] Comment on above: Performed By: #### L 100.0100, L501.5200, L500.2500 ####[facility] [address] [place], [address] GFR/1.73 sq M.predicted among non-blacks MDRD (S/P/Bld) [Vol rate/Area] 91 mL/min/{1.73_m2} Normal >60 [facility] Comment on above: Result Comment: Non- GFR Calc Performed By: #### L 100.0100, L501.5200, L500.2500 ####[facility] [address] [place], [address] Glucose [Mass/Vol] 361 mg/dL High 74-106 [facility] Comment on above: Result Comment: Gluc ose result greater than or equal to 200 mg/dL suggests DIABETES MELLITUS per A.D.A. criteria. Performed By: #### L 100.0100, L501.5200, L500.2500 ####[facility] [address] [place], [address] Potassium [Moles/Vol] 3.8 mmol/L Normal 3.5-5.1 [facility] Comment on above: Performed By: #### L 100.0100, L501.5200, L500.2500 ####[facility] [address] [place], [address] Sodium [Moles/Vol] 136 mmol/L Normal 136-145 [facility] Comment on above: Performed By: #### L 100.0100, L501.5200, L500.2500 ####[facility] [address] [place], [address] Urea nitrogen [Mass/Vol] 19 mg/dL High 7-18 [facility] Comment on above: Performed By: #### L 100.0100, L501.5200, L500.2500 ####[facility] [address] [place], [address] Basophil percentageOrdered B y: Johannirene Lemons on 10-30-2024 Basophil percentage 0.4 % 0-1 [facility] Blood urea nitrogen (BUN)/cr eatinine ratioOrdered By: Johann Lemons on 10-30-2024 Blood urea nitrogen (BUN)/creatinine ratio 21.2 RATIO High 10-20 [facility] CBC W/Diff, Automatedon 12- Absolute Lymph 1.53 X10 3/uL Normal 0.83-4.51 [facility] Comment on above: Performed By: #### L 100.0100, L501.5200, L500.2500 ####[facility] [address] [place], [address] Absolute Neut 4.5 X10 3/uL Normal 2.0-7.7 [facility] Comment on above: Performed By: #### L 100.0100, L501.5200, L500.2500 ####[facility] [address] [place], [address] Basophils/100 WBC (Bld) 0.4 % Normal 0-1 [facility] Comment on above: Performed By: #### L 100.0100, L501.5200, L500.2500 ####[facility] [address] [place], [address] Eosinophils/100 WBC (Bld) 3.5 % Normal 0-5 [facility] Comment on above: Performed By: #### L 100.0100, L501.5200, L500.2500 ####[facility] [address] [place], [address] Erythrocyte distribution width (RBC) [Ratio] 13.2 % Normal 11.6-14.6 [facility] Comment on above: Performed By: #### L 100.0100, L501.5200, L500.2500 ####[facility] [address] [place], [address] Hematocrit (Bld) [Volume fraction] 39.5 % Low 40-54 [facility] Comment on above: Performed By: #### L 100.0100, L501.5200, L500.2500 ####[facility] [address] [place], [address] Hemoglobin (Bld) [Mass/Vol] 14.2 g/dL Normal 13.0-16.5 [facility] Comment on above: Performed By: #### L 100.0100, L501.5200, L500.2500 ####[facility] [address] [place], [address] IG% 0.600 Normal 0.0-0.9 [facility] Comment on above: Result Comment: IG% - Immature Granulocytes (promyelocytes, myelocytes and metamyelocytes) > 1% indicates that a LEFT SHIFT is Present. Performed By: #### L 100.0100, L501.5200, L500.2500 ####[facility] [address] [place], [address] Lymphocytes/100 WBC (Bld) 22.4 % Normal 19-41 [facility] Comment on above: Performed By: #### L 100.0100, L501.5200, L500.2500 ####[facility] [address] [place], [address] MCH (RBC) [Entitic mass] 29.0 pg Normal 27.0-32.0 [facility] Comment on above: Performed By: #### L 100.0100, L501.5200, L500.2500 ####[facility] [address] [place], [address] MCHC (RBC) [Mass/Vol] 35.9 g/dL Normal 32-36 [facility] Comment on above: Performed By: #### L 100.0100, L501.5200, L500.2500 ####[facility] [address] [place], [address] MCV (RBC) [Entitic vol] 80.6 fL Normal 80-94 [facility] Comment on above: Performed By: #### L 100.0100, L501.5200, L500.2500 ####[facility] [address] [place], [address] Monocytes/100 WBC (Bld) 7.2 % Normal 0-10 [facility] Comment on above: Performed By: #### L 100.0100, L501.5200, L500.2500 ####[facility] [address] [place], [address] Neutrophils/100 WBC (Bld) 65.9 % Normal 47-70 [facility] Comment on above: Performed By: #### L 100.0100, L501.5200, L500.2500 ####[facility] [address] [place], [address] Nucleated RBC (Bld) [#/Vol] 0 10*3/uL Normal 0-5 [facility] Comment on above: Performed By: #### L 100.0100, L501.5200, L500.2500 ####[facility] [address] [place], [address] Platelet mean volume (Bld) [Entitic vol] 9.1 fL Normal 6.2-12.0 [facility] Comment on above: Performed By: #### L 100.0100, L501.5200, L500.2500 ####[facility] [address] [place], [address] Platelets (Bld) [#/Vol] 158 10*3/uL Normal 150-450 [facility] Comment on above: Performed By: #### L 100.0100, L501.5200, L500.2500 ####[facility] [address] [place], [address] RBC (Bld) [#/Vol] 4.90 10*6/uL Normal 4.6-6.2 [facility] Comment on above: Performed By: #### L 100.0100, L501.5200, L500.2500 ####[facility] [address] [place], [address] RDW SD 38.2 fl Normal 35.1-43.9 [facility] Comment on above: Performed By: #### L 100.0100, L501.5200, L500.2500 ####[facility] [address] [place], [address] WBC (Bld) [#/Vol] 6.8 10*3/uL Normal 4.4-11.0 [facility] Comment on above: Performed By: #### L 100.0100, L501.5200, L500.2500 ####[facility] [address] [place], [address] Calcium [Mass/Vol]Ordered By : Johann Lemons on 10-30-2024 Serum or plasma calcium measurement (mass/volume) 9.0 mg/dL 8.5-10.1 [facility] Carbon dioxide measurementOr dered By: Johann Lemons on 10-30-2024 Carbon dioxide measurement 29.0 mmol/L 21.0-32.0 [facility] Chloride measurementOrdered By: Johann Lemons on 10-30-2024 Chloride measurement 101 mmol/L 98-107 [facility] Clarity (U)Ordered By: Roland Lemons on 10-30-2024 Urine clarity Clear Clear [facility] Color (U)Ordered By: Johann Lemons on 10-30-2024 Urine color determination Yellow Yellow [facility] Creatinine [Mass/Vol]Ordered By: Johann Lemons on 10-30-2024 Serum or plasma creatinine measurement (mass/volume) 0.90 mg/dL 0.70-1.30 [facility] Emergency Department Summary on 10-30-2024 Emergency Department Summary [facility] Medical Records Department [address] [place] [address] Emergency Department Summary 10/30/24 MR#: [id number] Acct: [id number] Name: JERALD YODER Rep #: [id number] : 1960 64 From: Johann Lemons DO [...] called EMS was brought in for evaluation [facility] Medical History Partial traumatic amputation of [...] [place] (more content not included)... Normal [facility] Eosinophil percentageOrdered By: Johann Lemons on 10-30-2024 Eosinophil percentage 3.5 % 0-5 [facility] Erythrocyte distribution wid th (RBC) [Ratio]Ordered By: Johann Lemons on 10-30-2024 Erythrocyte distribution width ratio 13.2 % 11.6-14.6 [facility] Erythrocyte distribution width standard deviation 38.2 fl 35.1-43.9 [facility] Estimated glomerular filtrat ion rate (GFR) AmericanOrdered By: Johann Lemons on 10-30-2024 Estimated glomerular filtration rate (GFR) 110 mL/min >60 [facility] Glomerular filtration rate ( GFR) estimationOrdered By: Johann Lemons on 10-30-2024 Glomerular filtration rate (GFR) estimation 91 mL/min >60 [facility] Glucose Ql (U)Ordered By: Julia Lemons on 10-30-2024 Urine glucose detection 1000 mg/dl High Normal [facility] Glucose measurementOrdered B y: Johann Lemons on 10-30-2024 Glucose measurement 361 mg/dL High 74-106 [facility] Hematocrit Auto (Bld) [Volum e fraction]Ordered By: Johann Lemons on 10-30-2024 Automated blood hematocrit (percentage) 39.5 % Low 40-54 [facility] Hemoglobin measurementOrdere d By: Johann Lemons on 10-30-2024 Hemoglobin measurement 14.2 g/dL 13.0-16.5 [facility] Immature granulocytes/100 WB C Auto (Bld)Ordered By: Johann Lemons on 10-30-2024 Automated immature granulocyte percentage 0.600 % 0.0-0.9 [facility] Ketones Test strip Ql (U)Ord ered By: Johann Lemons on 10-30-2024 Urine ketones detection by test strip 5 mg/dl High Negative [facility] Lymphocytes Auto (Unsp spec) [#/Vol]Ordered By: Johann Lemons on 10-30-2024 Absolute lymphocyte count 1.53 X10^3/uL 0.83-4.51 [facility] Lymphocytes/100 WBC Auto (Un sp spec)Ordered By: Johann Lemons on 10-30-2024 Automated lymphocyte count as percentage of total leukocytes 22.4 % 19-41 [facility] M100.678on 10-30-2024 M100.678 Pending SARS-CoV-2 (COVID 19) Negative INFLUENZA A Negative INFLUENZA B Negative RSV PCR Negative Normal [facility] Comment on above: Performed By: #### L 100.0100, L500.4050 #### [facility] Laboratory [facility] [place], [address] MCV (RBC) [Entitic vol]Order ed By: Johann Lemons on 10-30-2024 MCV (mean corpuscular volume) determination 80.6 fL 80-94 [facility] Magnesiumon 10-30-2024 Magnesium [Mass/Vol] 1.5 mg/dL Low 1.6-2.6 [facility] Comment on above: Performed By: #### L 100.0100, L501.5200, L500.2500 ####[facility] [address] [place], [address] Magnesium measurementOrdered By: Johann Lemons on 10-30-2024 Magnesium measurement 1.5 mg/dL Low 1.6-2.6 [facility] Mean corpuscular hemoglobin (MCH) determinationOrdered By: Johann Lemons on 10-30-2024 Mean corpuscular hemoglobin (MCH) determination 29.0 pg 27.0-32.0 [facility] Mean corpuscular hemoglobin concentration (MCHC) determinationOrdered By: Johann Lemons on 10-30-2024 Mean corpuscular hemoglobin concentration (MCHC) determination 35.9 g/dL 32-36 [facility] Mean platelet volume determi nationOrdered By: Johann Lemons on 10-30-2024 Mean platelet volume determination 9.1 fl 6.2-12.0 [facility] Monocyte percentageOrdered B y: Johann Lemons on 10-30-2024 Monocyte percentage 7.2 % 0-10 [facility] Neutrophil percentageOrdered By: Johann Lemons on 10-30-2024 Neutrophil percentage 65.9 % 47-70 [facility] Nucleated red blood cell per centageOrdered By: Johann Lemons on 10-30-2024 Nucleated red blood cell percentage 0 % 0-5 [facility] Platelet countOrdered By: Julia Lemons on 10-30-2024 Platelet count 158 K/mm3 150-450 [facility] Potassium measurementOrdered By: Johann Lemons on 10-30-2024 Potassium measurement 3.8 mmol/L 3.5-5.1 [facility] Protein Test strip Ql (U)Ord ered By: Johann Lemons on 10-30-2024 Urine protein assay by test strip, semi-quantitative 15 mg/dl High Negative [facility] RBC Auto (Bld) [#/Vol]Ordere d By: Johann Lemons on 10-30-2024 Automated blood erythrocyte count 4.90 M/mm3 4.6-6.2 [facility] Serum anion gap measurementO rdered By: Johann Lemons on 10-30-2024 Serum anion gap measurement 7 5-15 [facility] Sodium levelOrdered By: Keith Lemons on 10-30-2024 Sodium level 136 mmol/L 136-145 [facility] Specific gravity (U) [Rel de nsity]Ordered By: Johann Lemons on 10-30-2024 Urine specific gravity measurement 1.015 1.002-1.030 [facility] Urea nitrogen [Mass/Vol]Orde red By: Johann Lemons on 10-30-2024 Serum or plasma urea nitrogen measurement (mass/volume) 19 mg/dL High 7-18 [facility] Urinalysis, Completeon 10-30 BACTERIA 0 SEEN Normal None Seen [facility] Comment on above: Order Comment: NO CTOR TO SPECIFY Performed By: #### L 100.0100, L500.4050 #### [facility] [address] [place], [address] EPI,SQUAMOUS 0 SEEN Normal 0-[address] [place] [address] Comment on above: Order Comment: NO CTOR TO SPECIFY Performed By: #### L 100.0100, L500.4050 #### [facility] [address] [place], [address] Mucus Ql (Urine sed) 0 SEEN Normal [facility] Comment on above: Order Comment: NO CTOR TO SPECIFY Performed By: #### L 100.0100, L500.4050 #### [facility] [address] [place], [address] RBC 0 SEEN Normal 0-[address] [place] [address] Comment on above: Order Comment: NO CTOR TO SPECIFY Performed By: #### L 100.0100, L500.4050 #### [facility] [address] [place], [address] WBC 0 SEEN Normal 0-5 [facility] Comment on above: Order Comment: NO CTOR TO SPECIFY Performed By: #### L 100.0100, L500.4050 #### [facility] [address] [facility] [place], [place], [id number] Urine total bilirubin detect ion by test stripOrdered By: Johann Lemons on 10-30-2024 Urine total bilirubin detection by test strip Negative Negative [facility] Urobilinogen Ql (U)Ordered B y: Johann Lemons on 10-30-2024 Urine urobilinogen measurement Normal mg/dl Normal [facility] White blood cell (WBC) count Ordered By: Johann Lemons on 10-30-2024 White blood cell (WBC) count 6.8 K/mm3 4.4-11.0 [facility] White blood cell countOrdere d By: Johann Lemons on 10-30-2024 White blood cell count 0 SEEN /hpf [facility] pH (U)Ordered By: Wilmer on 10-30-2024 Urine pH 6.0 5.0 - 8.0 [facility] Chest 1 View (Portable)on Chest 1 View (Portable) [facility] Imaging Services [address] [place], [place] [address] Chest 1 View (Portable) MR#: [id number] Acct: [id number] Name: JERALD YODER Rep #: [id number] : 1960 M 64 From: Dina Christina PCP: Dr. Linden Chavez, Status: REG ER Study: Chest 1 View (Portable) Date of Exam: 10/29/24 Exam# [id number] Ordering Dr: [place] [id number] INDICATION: weakness EXAMINATION/TECHNIQUE: X-RAY - XR Chest [...] 1:07 EST Reading Location ID and State: [address] [place] [address] Tel , Service support , CC: Dr. Linden Chavez DO; Johann Lemons DO Powered Bridge Specialist: Signed Normal [facility] 12 Lead EKGon 10-19-2024 12 Lead EKG [facility] Cardiovascular Services [address] [place] [address] 12 Lead EKG 10/19/24 0422 MR#: [id number] Acct: [id number] Name: JERALD YODER Rep #: [id number] : 1960 64 From: Cesar Mccoy MD [...] ECG Confirmed by CESAR MCCOY MD ([id number]), associate editor CARLA HERNANDEZ ([id number]) on 10/19/2024 8:17:03 AM Referred By: Confirmed By: CESAR MCCOY MD 10/19/24 0817 Date Cesar Mccoy MD CC: Dr. Live Ashley MD; Dr. Linden Chavez DO Signed [facility] Absolute neutrophil countOrd ered By: Live Ashley on 10-19-2024 Absolute neutrophil count 4.7 X10^3/uL 2.0-7.7 [facility] Basic Metabolic Profile (BMP )on 10-19-2024 BUN/CRE 14.7 RATIO Normal - [facility] Comment on above: Order Comment: 'TROP ' Serial specimen #1, #2 or #3: 1 Performed By: #### L 100.0100, L500.4050 #### [facility] [address] [place], [address] CA,Total 8.8 mg/dL Normal 8.5-10.1 [facility] Comment on above: Order Comment: 'TROP ' Serial specimen #1, #2 or #3: 1 Performed By: #### L 100.0100, L500.4050 #### [facility] [address] [place], [address] Chloride [Moles/Vol] 99 mmol/L Normal 98-107 [facility] Comment on above: Order Comment: 'TROP ' Serial specimen #1, #2 or #3: 1 Performed By: #### L 100.0100, L500.4050 #### [facility] [address] [place], [address] CO2 [Moles/Vol] 26.0 mmol/L Normal 21.0-32.0 [facility] Comment on above: Order Comment: 'TROP ' Serial specimen #1, #2 or #3: 1 Performed By: #### L 100.0100, L500.4050 #### [facility] [address] [place], [address] Creatinine [Mass/Vol] 1.02 mg/dL Normal 0.70-1.30 [facility] Comment on above: Order Comment: 'TROP ' Serial specimen #1, #2 or #3: 1 Result Comment: The validity of the calculated GFR GFRAA in patients over 70 years has not been determined. Clinical correlation is essential. Performed By: #### L 100.0100, L500.4050 #### [facility] [address] [place], [address] ECRCL 92.21 ml/min Normal [facility] Comment on above: Order Comment: 'TROP ' Serial specimen #1, #2 or #3: 1 Performed By: #### L 100.0100, L500.4050 #### [facility] [address] [place], [address] EST GFR - AA 94 mL/min Normal >60 [facility] Comment on above: Order Comment: 'TROP ' Serial specimen #1, #2 or #3: 1 Result Comment: Afri can Citizen [place] GFR Calc Performed By: #### L 100.0100, L500.4050 #### [facility] [address] [place], [address] GAP 5 Normal 5-15 [facility] Comment on above: Order Comment: 'TROP ' Serial specimen #1, #2 or #3: 1 Performed By: #### L 100.0100, L500.4050 #### [facility] [address] [place], [address] GFR/1.73 sq M.predicted among non-blacks MDRD (S/P/Bld) [Vol rate/Area] 78 mL/min/{1.73_m2} Normal >60 [facility] Comment on above: Order Comment: 'TROP ' Serial specimen #1, #2 or #3: 1 Result Comment: Non- GFR Calc Performed By: #### L 100.0100, L500.4050 #### [facility] [address] [place], [address] Glucose [Mass/Vol] 494 mg/dL Invalid Interpretation Code 74-106 [facility] Comment on above: Order Comment: 'TROP ' Serial specimen #1, #2 or #3: 1 Result Comment: Crit ical Result(s) Called at: 04:42:01 10/19/2024 by: Carla Montgomery LSparr. Results read back by same. Glucose result greater than or equal to 200 mg/dL suggests DIABETES MELLITUS per A.D.A. criteria. Performed By: #### L 100.0100, L500.4050 #### [facility] [address] [place], [address] Potassium [Moles/Vol] 3.7 mmol/L Normal 3.5-5.1 [facility] Comment on above: Order Comment: 'TROP ' Serial specimen #1, #2 or #3: 1 Performed By: #### L 100.0100, L500.4050 #### [facility] [address] [place], [address] Sodium [Moles/Vol] 130 mmol/L Low 136-145 [facility] Comment on above: Order Comment: 'TROP ' Serial specimen #1, #2 or #3: 1 Performed By: #### L 100.0100, L500.4050 #### [facility] [address] [place], [address] Urea nitrogen [Mass/Vol] 15 mg/dL Normal 7-18 [facility] Comment on above: Order Comment: 'TROP ' Serial specimen #1, #2 or #3: 1 Performed By: #### L 100.0100, L500.4050 #### [facility] [address] [place], [address] Basophil percentageOrdered B y: Live Ashley on 10-19-2024 Basophil percentage 1.0 % 0-1 [facility] Bedside Glucoseon 10-19-2024 FINGERSTICK GLU 263 mg/dL High 74-106 [facility] Comment on above: Result Comment: TAYLOR GEMENT OF PATIENT CARE PER NURSING PROTOCOL Performed By: #### L 100.0100, L500.4050 #### [facility] [address] [place], [address] FINGERSTICK GLU 353 mg/dL High 74-106 [facility] Comment on above: Result Comment: TAYLOR GEMENT OF PATIENT CARE PER NURSING PROTOCOL Performed By: #### L 100.0100, L500.4050 #### [facility] [address] [place], [address] FINGERSTICK GLU > 500 Invalid Interpretation Code 74-106 [facility] Comment on above: Result Comment: TAYLOR SEALS OF PATIENT CARE PER NURSING PROTOCOL Performed By: #### L 501.080 ####[facility] [address] [place], [address] Blood urea nitrogen (BUN)/cr eatinine ratioOrdered By: Live Ashley on 10-19-2024 Blood urea nitrogen (BUN)/creatinine ratio 14.7 RATIO 08-19 [facility] CBC W/Diff, Automatedon 10-01 PLT EST ADEQUATE Normal ADEQ [facility] Comment on above: Performed By: #### L 100.0100, L500.4050 #### [facility] [address] [place], [address] RED CELL MORPH NORM C+C Normal NORM C C [facility] Comment on above: Performed By: #### L 100.0100, L500.4050 #### [facility] [address] [place], [address] SMEAR COMMENT SCANNED Normal [facility] Comment on above: Performed By: #### L 100.0100, L500.4050 #### [facility] [address] [place], [address] Calcium [Mass/Vol]Ordered By : Live Ashley on 10-19-2024 Serum or plasma calcium measurement (mass/volume) 8.8 mg/dL 8.5-10.1 [facility] Carbon dioxide measurementOr dered By: Live Ashley on 10-19-2024 Carbon dioxide measurement 26.0 mmol/L 21.0-32.0 [facility] Chest PA and Lateralon 10-19 Chest PA and Lateral [facility] Imaging Services [address] [place] [address] Chest PA and Lateral MR#: [id number] Acct: [id number] Name: JERALD YODER Rep #: [id number] : 1960 M 64 From: Johann Aldrich MD PCP: Dr. Linden Chavez DO Status: REG ER Study: Chest PA and Lateral Date of Exam: 10/19/24 Exam# [id number] Ordering Dr: [place] [id number] EXAM: XR CHEST, 2 VIEWS CLINICAL INDICATION: [...] Live Ashley MD; Dr. Linden Chavez DO Powered Bridge Specialist: Signed Normal [facility] Chloride measurementOrdered By: Live Ashley on 10-19-2024 Chloride measurement 99 mmol/L 98-107 [facility] Clarity (U)Ordered By: Melissa Ashley on 10-19-2024 Urine clarity Clear Clear [facility] Color (U)Ordered By: Live Ashley on 10-19-2024 Urine color determination Yellow Yellow [facility] Creatinine [Mass/Vol]Ordered By: Live Ashley on 10-19-2024 Serum or plasma creatinine measurement (mass/volume) 1.02 mg/dL 0.70-1.30 [facility] Emergency Department Summary on 10-19-2024 Emergency Department Summary [facility] Medical Records Department [address] [place] [address] Emergency Department Summary 10/19/24 MR#: [id number] Acct: [id number] Name: JERALD YODER Rep #: [id number] : 1960 64 From: Live Ashley MD [...] 104 P (more content not included)... Normal [facility] Eosinophil percentageOrdered By: Live Ashley on 10-19-2024 Eosinophil percentage 3.0 % 0-5 [facility] Epithelial cells.squamous LM Ql (Urine sed)Ordered By: Live Ashley on 10-19-2024 Squamous epithelial cells detection in urine sediment by light microscopy 0-5 SEEN /hpf 0-5 [facility] Erythrocyte distribution wid th (RBC) [Ratio]Ordered By: Live Ashley on 10-19-2024 Erythrocyte distribution width ratio 13.2 % 11.6-14.6 [facility] Erythrocyte distribution width standard deviation 38.4 fl 35.1-43.9 [facility] Estimated glomerular filtrat ion rate (GFR) AmericanOrdered By: Live Ashley on 10-19-2024 Estimated glomerular filtration rate (GFR) 94 mL/min >60 [facility] Estimation of creatinine edinson aranceOrdered By: Live Ashley on 10-19-2024 Estimation of creatinine clearance 92.21 ml/min [facility] Glomerular filtration rate ( GFR) estimationOrdered By: Live Ashley on 10-19-2024 Glomerular filtration rate (GFR) estimation 78 mL/min >60 [facility] Glucose Ql (U)Ordered By: Dipak Ashley on 10-19-2024 Urine glucose detection 1000 mg/dl High Normal [facility] Glucose measurementOrdered B y: Live Ashley on 10-19-2024 Glucose measurement 494 mg/dL High 74-106 [facility] Glucose measurement at bedsi deOrdered By: Live Ashley on 10-19-2024 Glucose measurement at bedside 263 mg/dL High 74-106 [facility] Hematocrit Auto (Bld) [Volum e fraction]Ordered By: Live Ashley on 10-19-2024 Automated blood hematocrit (percentage) 43.9 % 40-54 [facility] Hemoglobin measurementOrdere d By: Live Ashley on 10-19-2024 Hemoglobin measurement 15.6 g/dL 13.0-16.5 [facility] Immature granulocytes/100 WB C Auto (Bld)Ordered By: Live Ashley on 10-19-2024 Automated immature granulocyte percentage 0.300 % 0.0-0.9 [facility] L501.4020on 10-19-2024 TROPONIN-I HS < 3 Low 3.0-78.0 [facility] Comment on above: Order Comment: 'TROP ' Serial specimen #1, #2 or #3: 1 Result Comment: Oleksandr lopez Note: New Test Units and Gender Specific Reference Ranges. For more information see Policy Stat Procedure [place] High Sensitivity Troponin (TNIH) and attachments. Performed By: #### L 100.0100, L500.4050 #### [facility] [address] [facility] [place], [address] Lymphocytes Auto (Unsp spec) [#/Vol]Ordered By: Live Ashley on 10-19-2024 Absolute lymphocyte count 2.40 X10^3/uL 0.83-4.51 [facility] Lymphocytes/100 WBC Auto (Un sp spec)Ordered By: Live Ashley on 10-19-2024 Automated lymphocyte count as percentage of total leukocytes 30.0 % 19-41 [facility] MCV (RBC) [Entitic vol]Order ed By: Live Ashley on 10-19-2024 MCV (mean corpuscular volume) determination 80.0 fL 80-94 [facility] Manual differential comment Robert (Bld) [Interp]Ordered By: Live Ashley on 10-19-2024 Blood manual differential comment interpretation (narrative result) SCANNED [facility] Mean corpuscular hemoglobin (MCH) determinationOrdered By: Live Ashley on 10-19-2024 Mean corpuscular hemoglobin (MCH) determination 28.4 pg 27.0-32.0 [facility] Mean corpuscular hemoglobin concentration (MCHC) determinationOrdered By: Live Ashley on 10-19-2024 Mean corpuscular hemoglobin concentration (MCHC) determination 35.5 g/dL 32-36 [facility] Mean platelet volume determi nationOrdered By: Live Ashley on 10-19-2024 Mean platelet volume determination 10.0 fl 6.2-12.0 [facility] Monocyte percentageOrdered B y: Live Ashley on 10-19-2024 Monocyte percentage 6.6 % 0-10 [facility] Neutrophil percentageOrdered By: Live Ashley on 10-19-2024 Neutrophil percentage 59.1 % 47-70 [facility] Nucleated red blood cell per centageOrdered By: Live Ashley on 10-19-2024 Nucleated red blood cell percentage 0 % 0-5 [facility] Platelet countOrdered By: Dipak Ashley on 10-19-2024 Platelet count 150 K/mm3 150-450 [facility] Platelets LM Ql (Bld)Ordered By: Live Ashley on 10-19-2024 Platelet estimate ADEQUATE ADEQ [facility] Potassium measurementOrdered By: Live Ashley on 10-19-2024 Potassium measurement 3.7 mmol/L 3.5-5.1 [facility] RBC Auto (Bld) [#/Vol]Ordere d By: Live Ashley on 10-19-2024 Automated blood erythrocyte count 5.49 M/mm3 4.6-6.2 [facility] RBC morphology finding Nom ( Bld)Ordered By: Live Ashley on 10-19-2024 Erythrocyte morphology assessment NORM C+C NORMAL NORM C&C [facility] Serum anion gap measurementO rdered By: Live Ashley on 10-19-2024 Serum anion gap measurement 5 5-15 [facility] Sodium levelOrdered By: Stevan Ashley on 10-19-2024 Sodium level 130 mmol/L Low 136-145 [facility] Specific gravity (U) [Rel de nsity]Ordered By: Live Ashley on 10-19-2024 Urine specific gravity measurement 1.010 1.002-1.030 [facility] Troponin IOrdered By: Srinivasa Ashley on 10-19-2024 Troponin I < 3 pg/mL Low 3.0-78.0 [facility] Urea nitrogen [Mass/Vol]Orde red By: Live Ashley on 10-19-2024 Serum or plasma urea nitrogen measurement (mass/volume) 15 mg/dL 7-18 [facility] Urinalysis, Completeon 10-19 EPI,SQUAMOUS 0-5 SEEN Normal 0-5 [facility] Comment on above: Order Comment: CLEAN CATCH Performed By: #### L 400.0001 ####[facility] [address] [place], [address] BACTERIA 0 SEEN Normal None Seen [facility] Comment on above: Order Comment: CLEAN CATCH Performed By: #### L 400.0001 ####[facility] [address] [place], [address] Mucus Ql (Urine sed) 0 SEEN Normal [facility] Comment on above: Order Comment: CLEAN CATCH Performed By: #### L 400.0001 ####[facility] [address] [place], [address] RBC 0 SEEN Normal 0-5 [facility] Comment on above: Order Comment: CLEAN CATCH Performed By: #### L 400.0001 ####[facility] [address] [place], [address] WBC 0 SEEN Normal 0-5 [facility] Comment on above: Order Comment: CLEAN CATCH Performed By: #### L 400.0001 ####[facility] [address] [place], [address] Urine total bilirubin detect ion by test stripOrdered By: Live Ashley on 10-19-2024 Urine total bilirubin detection by test strip Negative Negative [facility] Urobilinogen Ql (U)Ordered B y: Live Ashley on 10-19-2024 Urine urobilinogen measurement Normal mg/dl Normal [facility] White blood cell (WBC) count Ordered By: Live Ashley on 10-19-2024 White blood cell (WBC) count 8.0 K/mm3 4.4-11.0 [facility] White blood cell countOrdere d By: Live Ashley on 10-19-2024 White blood cell count 0 SEEN /hpf [facility] pH (U)Ordered By: Live Overton juan josé on 10-19-2024 Urine pH 6.5 5.0 - 8.0 [facility] Emergency Department Summary on 08-10-2024 Emergency Department Summary [facility] Medical Records Department [address] [place] [address] Emergency Department Summary 08/10/24 MR#: [id number] Acct: [id number] Name: JERALD YODER Rep #: [id number] : 1960 64 From: Adam Allen DO [...] mosquito bites. He denies any recent trauma. [facility] Medical History Partial traumatic amputation of [...] pain, diarrh (more content not included)... Normal [facility] Bedside Glucoseon 05-28-2024 FINGERSTICK GLU 402 mg/dL High 74-106 [facility] Comment on above: Result Comment: TAYLOR SEALS OF PATIENT CARE PER NURSING PROTOCOL Performed By: #### L 501.080 #### [facility] [address] [place], [place], [id number] Acetone Serumon 05-27-2024 ACETONE SERUM Negative Normal NEG [facility] Comment on above: Performed By: #### L 501.2450, L100.0100, L500.2500, L500.3400, L501.6900 ####[facility] [address] [place], [address] Basic Metabolic Profile (BMP )on 05-27-2024 BUN/CRE 15.5 RATIO Normal 10-20 [facility] Comment on above: Performed By: #### L 501.2450, L100.0100, L500.2500, L500.3400, L501.6900 ####[facility] [address] [place], [address] CA,Total 9.1 mg/dL Normal 8.5-10.1 [facility] Comment on above: Performed By: #### L 501.2450, L100.0100, L500.2500, L500.3400, L501.6900 ####[facility] [address] [place], [address] Chloride [Moles/Vol] 98 mmol/L Normal 98-107 [facility] Comment on above: Performed By: #### L 501.2450, L100.0100, L500.2500, L500.3400, L501.6900 ####[facility] [address] [place], [address] CO2 [Moles/Vol] 30.0 mmol/L Normal 21.0-32.0 [facility] Comment on above: Performed By: #### L 501.2450, L100.0100, L500.2500, L500.3400, L501.6900 ####[facility] [address] [place], [address] Creatinine [Mass/Vol] 1.03 mg/dL Normal 0.70-1.30 [facility] Comment on above: Result Comment: The validity of the calculated GFR GFRAA in patients over 70 years has not been determined. Clinical correlation is essential. Performed By: #### L 501.2450, L100.0100, L500.2500, L500.3400, L501.6900 ####[facility] [address] [place], [address] ECRCL 91.31 ml/min Normal [facility] Comment on above: Performed By: #### L 501.2450, L100.0100, L500.2500, L500.3400, L501.6900 ####[facility] [address] [place], [address] EST GFR - AA 94 mL/min Normal >60 [facility] Comment on above: Result Comment: Afri can [place] GFR Calc Performed By: #### L 501.2450, L100.0100, L500.2500, L500.3400, L501.6900 ####[facility] [address] [place], [address] GAP 7 Normal 5-15 [facility] Comment on above: Performed By: #### L 501.2450, L100.0100, L500.2500, L500.3400, L501.6900 ####[facility] [address] [place], [address] GFR/1.73 sq M.predicted among non-blacks MDRD (S/P/Bld) [Vol rate/Area] 77 mL/min/{1.73_m2} Normal >60 [facility] Comment on above: Result Comment: Non- GFR Calc Performed By: #### L 501.2450, L100.0100, L500.2500, L500.3400, L501.6900 ####[facility] [address] [place], [address] Glucose [Mass/Vol] 534 mg/dL Invalid Interpretation Code 74-106 [facility] Comment on above: Result Comment: Crit ical Result(s) Called at: 23:11:42 05/27/2024 by: Carla Townsend. Results read back by same. Glucose result greater than or equal to 200 mg/dL suggests DIABETES MELLITUS per A.D.A. criteria. Performed By: #### L 501.2450, L100.0100, L500.2500, L500.3400, L501.6900 ####[facility] [address] [place], [address] Potassium [Moles/Vol] 4.1 mmol/L Normal 3.5-5.1 [facility] Comment on above: Result Comment: Mode rate Hemolysis, Result may be falsely increased. Performed By: #### L 501.2450, L100.0100, L500.2500, L500.3400, L501.6900 ####[facility] [address] [place], [address] Sodium [Moles/Vol] 135 mmol/L Low 136-145 [facility] Comment on above: Performed By: #### L 501.2450, L100.0100, L500.2500, L500.3400, L501.6900 ####[facility] [address] [place], [address] Urea nitrogen [Mass/Vol] 16 mg/dL Normal 7-18 [facility] Comment on above: Performed By: #### L 501.2450, L100.0100, L500.2500, L500.3400, L501.6900 ####[facility] [address] [place], [address] Bedside Glucoseon 05-27-2024 FINGERSTICK GLU > 500 Invalid Interpretation Code 74-106 [facility] Comment on above: Result Comment: TAYLOR GEMENT OF PATIENT CARE PER NURSING PROTOCOL Performed By: #### L 501.080 #### [facility] [address] [place], [address] FINGERSTICK GLU 478 mg/dL Invalid Interpretation Code 74-106 [facility] Comment on above: Result Comment: Dr Susan marie Followed MANAGEMENT OF PATIENT CARE PER NURSING PROTOCOL Performed By: #### L 100.0100, L500.4050 #### [facility] [address] [place], [address] CBC W/Diff, Automatedon 07-2 Absolute Lymph 1.51 X10 3/uL Normal 0.83-4.51 [facility] Comment on above: Performed By: #### L 501.2450, L100.0100, L500.2500, L500.3400, L501.6900 ####[facility] [address] [place], [address] Absolute Neut 3.8 X10 3/uL Normal 2.0-7.7 [facility] Comment on above: Performed By: #### L 501.2450, L100.0100, L500.2500, L500.3400, L501.6900 ####[facility] [address] [place], [address] Basophils/100 WBC (Bld) 0.7 % Normal 0-1 [facility] Comment on above: Performed By: #### L 501.2450, L100.0100, L500.2500, L500.3400, L501.6900 ####[facility] [address] [place], [address] Eosinophils/100 WBC (Bld) 2.4 % Normal 0-5 [facility] Comment on above: Performed By: #### L 501.2450, L100.0100, L500.2500, L500.3400, L501.6900 ####[facility] [address] [place], [address] Erythrocyte distribution width (RBC) [Ratio] 13.4 % Normal 11.6-14.6 [facility] Comment on above: Performed By: #### L 501.2450, L100.0100, L500.2500, L500.3400, L501.6900 ####[facility] [address] [place], [address] Hematocrit (Bld) [Volume fraction] 40.4 % Normal 40-54 [facility] Comment on above: Performed By: #### L 501.2450, L100.0100, L500.2500, L500.3400, L501.6900 ####[facility] [address] [place], [address] Hemoglobin (Bld) [Mass/Vol] 14.3 g/dL Normal 13.0-16.5 [facility] Comment on above: Performed By: #### L 501.2450, L100.0100, L500.2500, L500.3400, L501.6900 ####[facility] [address] [place], [address] IG% 0.200 Normal 0.0-0.9 [facility] Comment on above: Result Comment: IG% - Immature Granulocytes (promyelocytes, myelocytes and metamyelocytes) > 1% indicates that a LEFT SHIFT is Present. Performed By: #### L 501.2450, L100.0100, L500.2500, L500.3400, L501.6900 ####[facility] [address] [place], [address] Lymphocytes/100 WBC (Bld) 25.9 % Normal 19-41 [facility] Comment on above: Performed By: #### L 501.2450, L100.0100, L500.2500, L500.3400, L501.6900 ####[facility] [address] [place], [address] MCH (RBC) [Entitic mass] 29.1 pg Normal 27.0-32.0 [facility] Comment on above: Performed By: #### L 501.2450, L100.0100, L500.2500, L500.3400, L501.6900 ####[facility] [address] [place], [address] MCHC (RBC) [Mass/Vol] 35.4 g/dL Normal 32-36 [facility] Comment on above: Performed By: #### L 501.2450, L100.0100, L500.2500, L500.3400, L501.6900 ####[facility] [address] [place], [address] MCV (RBC) [Entitic vol] 82.3 fL Normal 80-94 [facility] Comment on above: Performed By: #### L 501.2450, L100.0100, L500.2500, L500.3400, L501.6900 ####[facility] [address] [place], [address] Monocytes/100 WBC (Bld) 6.3 % Normal 0-10 [facility] Comment on above: Performed By: #### L 501.2450, L100.0100, L500.2500, L500.3400, L501.6900 ####[facility] [address] [place], [address] Neutrophils/100 WBC (Bld) 64.5 % Normal 47-70 [facility] Comment on above: Performed By: #### L 501.2450, L100.0100, L500.2500, L500.3400, L501.6900 ####[facility] [address] [place], [address] Nucleated RBC (Bld) [#/Vol] 0 10*3/uL Normal 0-5 [facility] Comment on above: Performed By: #### L 501.2450, L100.0100, L500.2500, L500.3400, L501.6900 ####[facility] [address] [place], [address] Platelet mean volume (Bld) [Entitic vol] 9.5 fL Normal 6.2-12.0 [facility] Comment on above: Performed By: #### L 501.2450, L100.0100, L500.2500, L500.3400, L501.6900 ####[facility] [address] [place], [address] Platelets (Bld) [#/Vol] 204 10*3/uL Normal 150-450 [facility] Comment on above: Performed By: #### L 501.2450, L100.0100, L500.2500, L500.3400, L501.6900 ####[facility] [address] [place], [address] RBC (Bld) [#/Vol] 4.91 10*6/uL Normal 4.6-6.2 [facility] Comment on above: Performed By: #### L 501.2450, L100.0100, L500.2500, L500.3400, L501.6900 ####[facility] [address] [place], [address] RDW SD 39.8 fl Normal 35.1-43.9 [facility] Comment on above: Performed By: #### L 501.2450, L100.0100, L500.2500, L500.3400, L501.6900 ####[facility] [address] [place], [address] WBC (Bld) [#/Vol] 5.8 10*3/uL Normal 4.4-11.0 [facility] Comment on above: Performed By: #### L 501.2450, L100.0100, L500.2500, L500.3400, L501.6900 ####[facility] [address] [place], [address] Emergency Department Summary on 05-27-2024 Emergency Department Summary [facility] Medical Records Department [address] [place] [address] Emergency Department Summary 05/27/24 MR#: [id number] Acct: [id number] Name: JERALD YODER Rep #: [id number] : 1960 64 From: Johann Lemons DO [...] he presents to the hospital for evaluation [facility] Medical History Partial traumatic amputation of [...] Respiratory Pat (more content not included)... Normal [facility] Lipaseon 05-27-2024 Lipase [Catalytic activity/Vol] 15 U/L Normal 13-75 [facility] Comment on above: Result Comment: Oleksandr lopez note: LIPASE revised reference range effective 23. New Lipase methodology. Expected to produce lower values than the previous assay method. NEW Reference Range: 13 - 75 U/L Performed By: #### L 501.080 #### [facility] [address] [place], [address] Liver Profileon 05-27-2024 Albumin [Mass/Vol] 3.3 g/dL Normal 3.2-5.0 [facility] Comment on above: Performed By: #### L 501.080 #### [facility] [address] [place], [address] ALK P 77 U/L Normal 45-117 [facility] Comment on above: Performed By: #### L 501.080 #### [facility] [address] [place], [address] ALT [Catalytic activity/Vol] 23 U/L Normal 16-61 [facility] Comment on above: Performed By: #### L 501.080 #### [facility] [address] [place], [address] AST [Catalytic activity/Vol] 27 U/L Normal 15-37 [facility] Comment on above: Result Comment: Mode rate Hemolysis, Result may be falsely increased. Performed By: #### L 501.080 #### [facility] [address] [place], [address] Bilirubin [Mass/Vol] 0.50 mg/dL Normal 0.20-1.00 [facility] Comment on above: Result Comment: For patients on eltrombopag therapy, use of Dimension [place] TBIL is not recommended. Performed By: #### L 501.080 #### [facility] [address] [place], [address] Bilirubin.direct [Mass/Vol] 0.07 mg/dL Normal 0.00-0.30 [facility] Comment on above: Performed By: #### L 501.080 #### [facility] [address] [place], [address] Globulin (S) [Mass/Vol] 3.5 g/dL Normal 2.2-4.2 [facility] Comment on above: Performed By: #### L 501.080 #### [facility] [address] [place], [address] T PROT 6.8 g/dL Normal 6.4-8.2 [facility] Comment on above: Performed By: #### L 501.080 #### [facility] [address] [place], [address] Urinalysis, Completeon 05-27 EPI,SQUAMOUS 0-5 SEEN Normal 0-5 [facility] Comment on above: Order Comment: NO CTOR TO SPECIFY Performed By: #### L 400.0001 ####[facility] [address] [place], [address] BACTERIA 0 SEEN Normal None Seen [facility] Comment on above: Order Comment: NO CTOR TO SPECIFY Performed By: #### L 400.0001 ####[facility] [address] [place], [address] Mucus Ql (Urine sed) 0 SEEN Normal [facility] Comment on above: Order Comment: NO CTOR TO SPECIFY Performed By: #### L 400.0001 ####[facility] [address] [place], [address] RBC 0 SEEN Normal 0-5 [facility] Comment on above: Order Comment: NO CTOR TO SPECIFY Performed By: #### L 400.0001 ####[facility] [address] [place], [address] WBC 0 SEEN Normal 0-5 [facility] Comment on above: Order Comment: COLLE CTOR TO SPECIFY Performed By: #### L 400.0001 ####[facility] [address] [place], [address] CBC W/Diff, Automatedon 04-30 Absolute Lymph 1.34 X10 3/uL Normal 0.83-4.51 [facility] Comment on above: Performed By: #### L 100.0100, L500.4050 #### [facility] [address] [place], [address] Absolute Neut 4.7 X10 3/uL Normal 2.0-7.7 [facility] Comment on above: Performed By: #### L 100.0100, L500.4050 #### [facility] [address] [place], [address] Basophils/100 WBC (Bld) 0.6 % Normal 0-1 [facility] Comment on above: Performed By: #### L 100.0100, L500.4050 #### [facility] [address] [place], [address] Eosinophils/100 WBC (Bld) 2.4 % Normal 0-5 [facility] Comment on above: Performed By: #### L 100.0100, L500.4050 #### [facility] [address] [place], [address] Erythrocyte distribution width (RBC) [Ratio] 13.2 % Normal 11.6-14.6 [facility] Comment on above: Performed By: #### L 100.0100, L500.4050 #### [facility] [address] [place], [address] Hematocrit (Bld) [Volume fraction] 40.4 % Normal 40-54 [facility] Comment on above: Performed By: #### L 100.0100, L500.4050 #### [facility] [address] [place], [address] Hemoglobin (Bld) [Mass/Vol] 14.1 g/dL Normal 13.0-16.5 [facility] Comment on above: Performed By: #### L 100.0100, L500.4050 #### [facility] [address] [place], [address] IG% 0.300 Normal 0.0-0.9 [facility] Comment on above: Result Comment: IG% - Immature Granulocytes (promyelocytes, myelocytes and metamyelocytes) > 1% indicates that a LEFT SHIFT is Present. Performed By: #### L 100.0100, L500.4050 #### [facility] [address] [place], [address] Lymphocytes/100 WBC (Bld) 19.7 % Normal 19-41 [facility] Comment on above: Performed By: #### L 100.0100, L500.4050 #### [facility] [address] [place], [address] MCH (RBC) [Entitic mass] 28.5 pg Normal 27.0-32.0 [facility] Comment on above: Performed By: #### L 100.0100, L500.4050 #### [facility] [address] [place], [address] MCHC (RBC) [Mass/Vol] 34.9 g/dL Normal 32-36 [facility] Comment on above: Performed By: #### L 100.0100, L500.4050 #### [facility] [address] [place], [address] MCV (RBC) [Entitic vol] 81.6 fL Normal 80-94 [facility] Comment on above: Performed By: #### L 100.0100, L500.4050 #### [facility] [address] [place], [address] Monocytes/100 WBC (Bld) 7.2 % Normal 0-10 [facility] Comment on above: Performed By: #### L 100.0100, L500.4050 #### [facility] [address] [place], [address] Neutrophils/100 WBC (Bld) 69.8 % Normal 47-70 [facility] Comment on above: Performed By: #### L 100.0100, L500.4050 #### [facility] [address] [place], [address] Nucleated RBC (Bld) [#/Vol] 0 10*3/uL Normal 0-5 [facility] Comment on above: Performed By: #### L 100.0100, L500.4050 #### [facility] [address] [place], [address] Platelet mean volume (Bld) [Entitic vol] 9.6 fL Normal 6.2-12.0 [facility] Comment on above: Performed By: #### L 100.0100, L500.4050 #### [facility] [address] [place], [address] Platelets (Bld) [#/Vol] 186 10*3/uL Normal 150-450 [facility] Comment on above: Performed By: #### L 100.0100, L500.4050 #### [facility] [address] [place], [address] RBC (Bld) [#/Vol] 4.95 10*6/uL Normal 4.6-6.2 [facility] Comment on above: Performed By: #### L 100.0100, L500.4050 #### [facility] [address] [place], [address] RDW SD 38.5 fl Normal 35.1-43.9 [facility] Comment on above: Performed By: #### L 100.0100, L500.4050 #### [facility] [address] [place], [address] WBC (Bld) [#/Vol] 6.8 10*3/uL Normal 4.4-11.0 [facility] Comment on above: Performed By: #### L 100.0100, L500.4050 #### [facility] [address] [place], [address] Comprehensive Metabolic Prof [facility] 05-18-2024 Albumin [Mass/Vol] 3.5 g/dL Normal 3.2-5.0 [facility] Comment on above: Performed By: #### L 100.0100, L500.4050 #### [facility] [address] [place], [address] Albumin/Globulin [Mass ratio] 1.0 {ratio} Normal 0.9-2.4 [facility] Comment on above: Performed By: #### L 100.0100, L500.4050 #### [facility] [address] [place], [address] ALK P 81 U/L Normal 45-117 [facility] Comment on above: Performed By: #### L 100.0100, L500.4050 #### [facility] [address] [place], [address] ALT [Catalytic activity/Vol] 18 U/L Normal 16-61 [facility] Comment on above: Performed By: #### L 100.0100, L500.4050 #### [facility] [address] [place], [address] AST [Catalytic activity/Vol] 11 U/L Low 15-37 [facility] Comment on above: Performed By: #### L 100.0100, L500.4050 #### [facility] [address] [place], [address] Bilirubin [Mass/Vol] 0.60 mg/dL Normal 0.20-1.00 [facility] Comment on above: Result Comment: For patients on eltrombopag therapy, use of Dimension [place] TBIL is not recommended. Performed By: #### L 100.0100, L500.4050 #### [facility] [address] [place], [address] BUN/CRE 19.6 RATIO Normal 10-20 [facility] Comment on above: Performed By: #### L 100.0100, L500.4050 #### [facility] [address] [place], [address] CA,Total 9.0 mg/dL Normal 8.5-10.1 [facility] Comment on above: Performed By: #### L 100.0100, L500.4050 #### [facility] [address] [place], [address] Chloride [Moles/Vol] 98 mmol/L Normal 98-107 [facility] Comment on above: Performed By: #### L 100.0100, L500.4050 #### [facility] [address] [place], [address] CO2 [Moles/Vol] 28.0 mmol/L Normal 21.0-32.0 [facility] Comment on above: Performed By: #### L 100.0100, L500.4050 #### [facility] [address] [place], [address] Creatinine [Mass/Vol] 1.07 mg/dL Normal 0.70-1.30 [facility] Comment on above: Result Comment: The validity of the calculated GFR GFRAA in patients over 70 years has not been determined. Clinical correlation is essential. Performed By: #### L 100.0100, L500.4050 #### [facility] [address] [place], [address] ECRCL 87.90 ml/min Normal [facility] Comment on above: Performed By: #### L 100.0100, L500.4050 #### [facility] [address] [place], [address] EST GFR - AA 89 mL/min Normal >60 [facility] Comment on above: Result Comment: Afri can [place] GFR Calc Performed By: #### L 100.0100, L500.4050 #### [facility] [address] [place], [address] GAP 8 Normal 5-15 [facility] Comment on above: Performed By: #### L 100.0100, L500.4050 #### [facility] [address] [place], [address] GFR/1.73 sq M.predicted among non-blacks MDRD (S/P/Bld) [Vol rate/Area] 74 mL/min/{1.73_m2} Normal >60 [facility] Comment on above: Result Comment: Non- GFR Calc Performed By: #### L 100.0100, L500.4050 #### [facility] [address] [place], [address] Globulin (S) [Mass/Vol] 3.4 g/dL Normal 2.2-4.2 [facility] Comment on above: Performed By: #### L 100.0100, L500.4050 #### [facility] [address] [place], [address] Glucose [Mass/Vol] 448 mg/dL High 74-106 [facility] Comment on above: Result Comment: Gluc ose result greater than or equal to 200 mg/dL suggests DIABETES MELLITUS per A.D.A. criteria. Performed By: #### L 100.0100, L500.4050 #### [facility] [address] [place], [address] Potassium [Moles/Vol] 4.1 mmol/L Normal 3.5-5.1 [facility] Comment on above: Performed By: #### L 100.0100, L500.4050 #### [facility] [address] [place], [address] Sodium [Moles/Vol] 134 mmol/L Low 136-145 [facility] Comment on above: Performed By: #### L 100.0100, L500.4050 #### [facility] [address] [place], [address] T PROT 6.9 g/dL Normal 6.4-8.2 [facility] Comment on above: Performed By: #### L 100.0100, L500.4050 #### [facility] [address] [place], [address] Urea nitrogen [Mass/Vol] 21 mg/dL High 7-18 [facility] Comment on above: Performed By: #### L 100.0100, L500.4050 #### [facility] [address] [place], [address] Emergency Department Summary on 05-18-2024 Emergency Department Summary [facility] Medical Records Department [address] [place] [address] Emergency Department Summary 05/18/24 MR#: [id number] Acct: [id number] Name: JERALD YODER Rep #: [id number] : 1960 64 From: Shania Disla MD [...] using Pepto-Bismol as well as Imodium intermittently. [facility] Medical History Partial traumatic amputation of [...] Rate 16 (more content not included)... Normal [facility] CNOVon 05-10-2024 CNOV Office Visit (UCWSTR ) JERALD YODER ([id number]) 1960 M Date Time Provider Department 05/10/24 7:30 PM ROSA QUINONES [facility] During your visit today, we recorded the following information about you: Temperature Pulse Respiration Blood pressure 97.5 degrees 72/minute 20/minute 135/81 Weight 101 kg Rosa Quinones APRN.UNIFORMER 05/11/2024 8:47 AM Signed This note was created using Tripwareriter. Subjective Jerald Yoder is a 64 year [...] or chills Denies using homeopathic or OTC GRAPE PRUNER. Requesting ear irrigation. The history is provided by the patient. No concrete analyst was used. Ear Problem There is pain [...] Colon polyp 2013 adenomatous Coronary artery disease [place] in 1994 Diabetic neuropathy (HCC) DM (diabetes [...] Inject 82 Units subcutaneously daily before breakfast. [employer] glucose scanning reader (backstitch CLAUDIA 14 DAY READER) misc 1 Device [...] Vaping Use (more content not included)... Normal [facility] Acetone Serumon 05-08-2024 ACETONE SERUM Negative Normal NEG [facility] Comment on above: Performed By: #### L 100.0100, L500.4050 #### [facility] [address] [place], [address] Basic Metabolic Profile (BMP )on 05-08-2024 BUN/CRE 16.7 RATIO Normal 10-20 [facility] Comment on above: Performed By: #### L 100.0100, L500.4050 #### [facility] [address] [place], [address] CA,Total 9.4 mg/dL Normal 8.5-10.1 [facility] Comment on above: Performed By: #### L 100.0100, L500.4050 #### [facility] [address] [place], [address] Chloride [Moles/Vol] 94 mmol/L Low 98-107 [facility] Comment on above: Performed By: #### L 100.0100, L500.4050 #### [facility] [address] [place], [address] CO2 [Moles/Vol] 29.0 mmol/L Normal 21.0-32.0 [facility] Comment on above: Performed By: #### L 100.0100, L500.4050 #### [facility] [address] [place], [address] Creatinine [Mass/Vol] 1.08 mg/dL Normal 0.70-1.30 [facility] Comment on above: Result Comment: The validity of the calculated GFR GFRAA in patients over 70 years has not been determined. Clinical correlation is essential. Performed By: #### L 100.0100, L500.4050 #### [facility] [address] [place], [address] ECRCL 87.08 ml/min Normal [facility] Comment on above: Performed By: #### L 100.0100, L500.4050 #### [facility] [address] [place], [address] EST GFR - AA 89 mL/min Normal >60 [facility] Comment on above: Result Comment: Afri can [place] GFR Calc Performed By: #### L 100.0100, L500.4050 #### [facility] [address] [place], [address] GAP 9 Normal 5-15 [facility] Comment on above: Performed By: #### L 100.0100, L500.4050 #### [facility] [address] [place], [address] GFR/1.73 sq M.predicted among non-blacks MDRD (S/P/Bld) [Vol rate/Area] 73 mL/min/{1.73_m2} Normal >60 [facility] Comment on above: Result Comment: Non- GFR Calc Performed By: #### L 100.0100, L500.4050 #### [facility] [address] [place], [address] Glucose [Mass/Vol] 620 mg/dL Invalid Interpretation Code 74-106 [facility] Comment on above: Result Comment: Crit ical Result(s) Called at: 01:10:08 05/08/2024 by: Carla claudio. Results read back by same. Glucose result greater than or equal to 200 mg/dL suggests DIABETES MELLITUS per A.D.A. criteria. Performed By: #### L 100.0100, L500.4050 #### [facility] [address] [place], [address] Potassium [Moles/Vol] 3.8 mmol/L Normal 3.5-5.1 [facility] Comment on above: Performed By: #### L 100.0100, L500.4050 #### [facility] [address] [place], [address] Sodium [Moles/Vol] 132 mmol/L Low 136-145 [facility] Comment on above: Performed By: #### L 100.0100, L500.4050 #### [facility] [address] [place], [address] Urea nitrogen [Mass/Vol] 18 mg/dL Normal 7-18 [facility] Comment on above: Performed By: #### L 100.0100, L500.4050 #### [facility] [address] [place], [address] Bedside Glucoseon 05-08-2024 FINGERSTICK GLU 380 mg/dL High 74-106 [facility] Comment on above: Result Comment: TAYLOR SEALS OF PATIENT CARE PER NURSING PROTOCOL Performed By: #### L 501.080 #### [facility] [address] [place], [address] CBC W/Diff, Automatedon 07-0 9-4 Absolute Lymph 1.44 X10 3/uL Normal 0.83-4.51 [facility] Comment on above: Performed By: #### L 100.0100, L500.4050 #### [facility] [address] [place], [address] Absolute Neut 3.7 X10 3/uL Normal 2.0-7.7 [facility] Comment on above: Performed By: #### L 100.0100, L500.4050 #### [facility] [address] [place], [address] Basophils/100 WBC (Bld) 0.7 % Normal 0-1 [facility] Comment on above: Performed By: #### L 100.0100, L500.4050 #### [facility] [address] [place], [address] Eosinophils/100 WBC (Bld) 2.2 % Normal 0-5 [facility] Comment on above: Performed By: #### L 100.0100, L500.4050 #### [facility] [address] [place], [address] Erythrocyte distribution width (RBC) [Ratio] 12.8 % Normal 11.6-14.6 [facility] Comment on above: Performed By: #### L 100.0100, L500.4050 #### [facility] [address] [place], [address] Hematocrit (Bld) [Volume fraction] 41.7 % Normal 40-54 [facility] Comment on above: Performed By: #### L 100.0100, L500.4050 #### [facility] [address] [place], [address] Hemoglobin (Bld) [Mass/Vol] 14.4 g/dL Normal 13.0-16.5 [facility] Comment on above: Performed By: #### L 100.0100, L500.4050 #### [facility] [address] [place], [address] IG% 1.200 High 0.0-0.9 [facility] Comment on above: Result Comment: IG% - Immature Granulocytes (promyelocytes, myelocytes and metamyelocytes) > 1% indicates that a LEFT SHIFT is Present. Performed By: #### L 100.0100, L500.4050 #### [facility] [address] [place], [address] Lymphocytes/100 WBC (Bld) 24.4 % Normal 19-41 [facility] Comment on above: Performed By: #### L 100.0100, L500.4050 #### [facility] [address] [place], [address] MCH (RBC) [Entitic mass] 28.3 pg Normal 27.0-32.0 [facility] Comment on above: Performed By: #### L 100.0100, L500.4050 #### [facility] [address] [place], [address] MCHC (RBC) [Mass/Vol] 34.5 g/dL Normal 32-36 [facility] Comment on above: Performed By: #### L 100.0100, L500.4050 #### [facility] [address] [place], [address] MCV (RBC) [Entitic vol] 81.9 fL Normal 80-94 [facility] Comment on above: Performed By: #### L 100.0100, L500.4050 #### [facility] [address] [place], [address] Monocytes/100 WBC (Bld) 8.5 % Normal 0-10 [facility] Comment on above: Performed By: #### L 100.0100, L500.4050 #### [facility] [address] [place], [address] Neutrophils/100 WBC (Bld) 63.0 % Normal 47-70 [facility] Comment on above: Performed By: #### L 100.0100, L500.4050 #### [facility] [address] [place], [address] Nucleated RBC (Bld) [#/Vol] 0 10*3/uL Normal 0-5 [facility] Comment on above: Performed By: #### L 100.0100, L500.4050 #### [facility] [address] [place], [address] Platelet mean volume (Bld) [Entitic vol] 9.3 fL Normal 6.2-12.0 [facility] Comment on above: Performed By: #### L 100.0100, L500.4050 #### [facility] [address] [place], [address] Platelets (Bld) [#/Vol] 178 10*3/uL Normal 150-450 [facility] Comment on above: Performed By: #### L 100.0100, L500.4050 #### [facility] [address] [place], [address] RBC (Bld) [#/Vol] 5.09 10*6/uL Normal 4.6-6.2 [facility] Comment on above: Performed By: #### L 100.0100, L500.4050 #### [facility] [address] [place], [address] RDW SD 38.2 fl Normal 35.1-43.9 [facility] Comment on above: Performed By: #### L 100.0100, L500.4050 #### [facility] [address] [place], [address] WBC (Bld) [#/Vol] 5.9 10*3/uL Normal 4.4-11.0 [facility] Comment on above: Performed By: #### L 100.0100, L500.4050 #### [facility] [address] [place], [address] Chest PA and Lateralon 05-08 Chest PA and Lateral [facility] Imaging Services [address] [place] [address] Chest PA and Lateral MR#: [id number] Acct: [id number] Name: JERALD YODER Rep #: [id number] : 1960 M 64 From: Fantasma Laguerre MD PCP: Dr. Linden Chavez DO Status: DEP ER Study: Chest PA and Lateral Date of Exam: 05/08/24 Exam# [id number] Ordering [place]: [place] [id number] INDICATION: WEAKNESS EXAMINATION/TECHNIQUE: X-RAY - XR Chest [...] Dr. Linden Chavez DO; Johann Lemons DO Powered Bridge Specialist: Signed Normal [facility] Emergency Department Summary on 05-08-2024 Emergency Department Summary [facility] Medical Records Department [address] [place] [address] Emergency Department Summary 05/08/24 MR#: [id number] Acct: [id number] Name: JERALD YODER Rep #: [id number] : 1960 64 From: Johann Lemons DO [...] admitted and therefore comes in for evaluation [facility] Medical History Partial traumatic amputation of [...] Vital Signs: (more content not included)... Normal [facility] Liver Profileon 05-08-2024 Albumin [Mass/Vol] 3.5 g/dL Normal 3.2-5.0 [facility] Comment on above: Performed By: #### L 100.0100, L500.4050 #### [facility] [address] [place], [address] ALK P 77 U/L Normal 45-117 [facility] Comment on above: Performed By: #### L 100.0100, L500.4050 #### [facility] [address] [place], [address] ALT [Catalytic activity/Vol] 16 U/L Normal 16-61 [facility] Comment on above: Performed By: #### L 100.0100, L500.4050 #### [facility] [address] [place], [address] AST [Catalytic activity/Vol] 23 U/L Normal 15-37 [facility] Comment on above: Performed By: #### L 100.0100, L500.4050 #### [facility] [address] [place], [address] Bilirubin [Mass/Vol] 0.50 mg/dL Normal 0.20-1.00 [facility] Comment on above: Result Comment: For patients on eltrombopag therapy, use of Dimension [place] TBIL is not recommended. Performed By: #### L 100.0100, L500.4050 #### [facility] [address] [place], [address] Bilirubin.direct [Mass/Vol] 0.18 mg/dL Normal 0.00-0.30 [facility] Comment on above: Performed By: #### L 100.0100, L500.4050 #### [facility] [address] [place], [address] Globulin (S) [Mass/Vol] 3.4 g/dL Normal 2.2-4.2 [facility] Comment on above: Performed By: #### L 100.0100, L500.4050 #### [facility] [address] [place], [address] T PROT 6.9 g/dL Normal 6.4-8.2 [facility] Comment on above: Performed By: #### L 100.0100, L500.4050 #### [facility] [address] [place], [address] Urinalysis, Completeon 05-08 BACTERIA 0 SEEN Normal None Seen [facility] Comment on above: Order Comment: CLEAN CATCH Performed By: #### L 501.080 #### [facility] [address] [place], [address] EPI,SQUAMOUS 0 SEEN Normal 0-5 [facility] Comment on above: Order Comment: CLEAN CATCH Performed By: #### L 501.080 #### [facility] [address] [place], [address] Mucus Ql (Urine sed) 0 SEEN Normal [facility] Comment on above: Order Comment: CLEAN CATCH Performed By: #### L 501.080 #### [facility] [address] [place], [address] RBC 0 SEEN Normal 0-5 [facility] Comment on above: Order Comment: CLEAN CATCH Performed By: #### L 501.080 #### [facility] [address] [place], [place], [id number] WBC 0 SEEN Normal 0-5 [facility] Comment on above: Order Comment: CLEAN CATCH Performed By: #### L 501.080 #### [facility] [address] [place], [place], [id number] Absolute lymphocyte countOrd ered By: Johann Lemons on 03-08-2024 Lymphocytes Auto (Unsp spec) [#/Vol] 1.65 10*3/uL 0.83-4.51 [facility] Automated lymphocyte count a s percentage of total leukocytesOrdered By: Johann Lemons on 03-08-2024 Lymphocytes/100 WBC Auto (Unsp spec) 22.8 % 19-41 [facility] Basophil percentageOrdered B y: Johann Lemons on 03-08-2024 Basophils/100 WBC (Bld) 0.6 % 0-1 [facility] Bilirubin [Mass/Vol] 0.60 mg/dL 0.20-1.00 [facility] Comment on above: For patients on eltr ombopag therapy, use of Dimension [place] TBIL is not recommended. Chloride [Moles/Vol] 97 mmol/L 98-107 [facility] Eosinophils/100 WBC (Bld) 3.9 % 0-5 [facility] Glucose [Mass/Vol] 520 mg/dL 74-106 [facility] Comment on above: Critical Result(s) C alled at: 07:30:39 03/08/2024 by: Darrell Santos to Dawna Vazquez. Results read back by same.Glucose result greater than or equal to 200 mg/dLsuggests DIABETES MELLITUS per A.D.A. criteria. Hemoglobin (Bld) [Mass/Vol] 14.8 g/dL 13.0-16.5 [facility] Monocytes/100 WBC (Bld) 6.9 % 0-10 [facility] Neutrophils (Bld) [#/Vol] 4.8 10*3/uL 2.0-7.7 [facility] Neutrophils/100 WBC (Bld) 65.4 % 47-70 [facility] Potassium [Moles/Vol] 4.0 mmol/L 3.5-5.1 [facility] Protein [Mass/Vol] 7.2 g/dL 6.4-8.2 [facility] Sodium [Moles/Vol] 134 mmol/L 136-145 [facility] WBC (Bld) [#/Vol] 7.3 10*3/uL 4.4-11.0 [facility] Determination of erythrocyte mean corpuscular volume (MCV)Ordered By: Johann Lemons on 03-08-2024 MCV (RBC) [Entitic vol] 82.2 fL 80-94 [facility] Direct bilirubinOrdered By: Johann Lemons on 03-08-2024 Bilirubin.direct [Mass/Vol] 0.19 mg/dL 0.00-0.30 [facility] Erythrocyte distribution wid th ratioOrdered By: Johann Lemons on 03-08-2024 Erythrocyte distribution width (RBC) [Ratio] 13.3 % 11.6-14.6 [facility] Erythrocyte distribution wid th standard deviationOrdered By: Johann Lemons on 03-08-2024 Erythrocyte distribution width (RBC) [Entitic vol] 39.7 fL 35.1-43.9 [facility] Hematocrit Auto (Bld) [Volum e fraction]Ordered By: Johann Lemons on 03-08-2024 Hematocrit (Bld) [Volume fraction] 42.9 % 40-54 [facility] Immature granulocytes/100 WB C Auto (Bld)Ordered By: Johann Lemons on 03-08-2024 Immature granulocytes/100 WBC (Bld) 0.400 % 0.0-0.9 [facility] Comment on above: IG% - Immature Granu locytes (promyelocytes, myelocytes and metamyelocytes) > 1% indicates that a LEFT SHIFT is Present. Laboratory - Chemistry and C hemistry - challengeOrdered By: Johann Lemons on 03-08-2024 ALP [Catalytic activity/Vol] 84 U/L 45-117 [facility] ALT [Catalytic activity/Vol] 22 U/L 16-61 [facility] CO2 [Moles/Vol] 31.0 mmol/L 21.0-32.0 [facility] Globulin (S) [Mass/Vol] 3.5 g/dL 2.2-4.2 [facility] Lipase [Catalytic activity/Vol] 17 U/L 13-75 [facility] Comment on above: Please note:LIPASE r evised reference range effective 23. New Lipase methodology. Expected to produce lower values than the previous assay method. NEW Reference Range: 13 - 75 U/L Urea nitrogen/Creatinine [Mass ratio] 16.7 mg/mg 10-20 [facility] - Hematology and Cell countsOrdered By: Johann Lemons on 03-08-2024 MCH (RBC) [Entitic mass] 28.4 pg 27.0-32.0 [facility] MCHC (RBC) [Mass/Vol] 34.5 g/dL 32-36 [facility] Nucleated RBC/100 WBC (Bld) [Ratio] 0 % 0-5 [facility] Platelet mean volume (Bld) [Entitic vol] 9.6 fL 6.2-12.0 [facility] Platelets (Bld) [#/Vol] 194 10*3/uL 150-450 [facility] No Panel InformationOrdered By: Johann Lemons on 03-08-2024 Estimated Creatinine Clearance Calc 99.26 ml/min [facility] Estimated GFR (MDRD) Amer 102 mL/min >60 [facility] Comment on above: GFR Calc Estimated GFR (MDRD) Non-Af Amer 84 mL/min >60 [facility] Comment on above: Non- GFR Calc RBC Auto (Bld) [#/Vol]Ordere d By: Johann Lemons on 03-08-2024 RBC (Bld) [#/Vol] 5.22 10*6/uL 4.6-6.2 [facility] Serum or plasma calcium yayo urement (mass/volume)Ordered By: Johann Lemons on 03-08-2024 Calcium [Mass/Vol] 9.5 mg/dL 8.5-10.1 [facility] Serum or plasma creatinine m easurement (mass/volume)Ordered By: Johann Lemons on 05-09-2024 Creatinine [Mass/Vol] 0.96 mg/dL 0.70-1.30 [facility] Comment on above: The validity of the calculated GFR & GFRAA in patients over 70 years has not been determined. Clinical correlation is essential. Serum or plasma urea nitroge n measurement (mass/volume)Ordered By: Johann Lemons on 03-08-2024 Urea nitrogen [Mass/Vol] 16 mg/dL 7-18 [facility] Thin prep Papanicolaou smear with manual screeningOrdered By: Johann Lemons on 03-08-2024 Thin prep Papanicolaou smear with manual screening 3.7 g/dL 3.2-5.0 [facility] Thin prep Papanicolaou smear with manual screening 12 U/L 15-37 [facility] Thin prep Papanicolaou smear with manual screening 6 5-15 [facility] Absolute lymphocyte countOrd ered By: Keenan Wu on 02-07-2024 Lymphocytes Auto (Unsp spec) [#/Vol] 1.71 10*3/uL 0.83-4.51 [facility] Automated lymphocyte count a s percentage of total leukocytesOrdered By: Keenan Wu on 02-07-2024 Lymphocytes/100 WBC Auto (Unsp spec) 17.4 % 19-41 [facility] Basophil percentageOrdered B y: Keenan Wu on 02-07-2024 Basophil percentage 0 SEEN /hpf 0-5 [facility] Basophils/100 WBC (Bld) 0.5 % 0-1 [facility] Bilirubin [Mass/Vol] 0.60 mg/dL 0.20-1.00 [facility] Comment on above: For patients on eltr ombopag therapy, use of Dimension [place] TBIL is not recommended. Chloride [Moles/Vol] 98 mmol/L 98-107 [facility] Eosinophils/100 WBC (Bld) 3.1 % 0-5 [facility] Glucose [Mass/Vol] 461 mg/dL 74-106 [facility] Comment on above: Critical Result(s) C alled at: 21:52:34 02/07/2024 by: GLORIA MORA TO MMARTIN2. Results read back by same.Glucose result greater than or equal to 200 mg/dLsuggests DIABETES MELLITUS per A.D.A. criteria. Hemoglobin (Bld) [Mass/Vol] 15.4 g/dL 13.0-16.5 [facility] Monocytes/100 WBC (Bld) 5.4 % 0-10 [facility] Neutrophils (Bld) [#/Vol] 7.2 10*3/uL 2.0-7.7 [facility] Neutrophils/100 WBC (Bld) 73.2 % 47-70 [facility] Potassium [Moles/Vol] 3.9 mmol/L 3.5-5.1 [facility] Protein [Mass/Vol] 7.5 g/dL 6.4-8.2 [facility] Sodium [Moles/Vol] 134 mmol/L 136-145 [facility] WBC (Bld) [#/Vol] 9.9 10*3/uL 4.4-11.0 [facility] Bilirubin Test strip Ql (U)O rdered By: Keenan Wu on 02-07-2024 Bilirubin Ql (U) Negative Negative [facility] Determination of erythrocyte mean corpuscular volume (MCV)Ordered By: Keenan Wu on 02-07-2024 MCV (RBC) [Entitic vol] 82.1 fL 80-94 [facility] Erythrocyte distribution wid th ratioOrdered By: eKenan Wu on 02-07-2024 Erythrocyte distribution width (RBC) [Ratio] 13.6 % 11.6-14.6 [facility] Erythrocyte distribution wid th standard deviationOrdered By: Keenan Wu on 02-07-2024 Erythrocyte distribution width (RBC) [Entitic vol] 40.1 fL 35.1-43.9 [facility] Hematocrit Auto (Bld) [Volum e fraction]Ordered By: Keenan Wu on 02-07-2024 Hematocrit (Bld) [Volume fraction] 44.1 % 40-54 [facility] Immature granulocytes/100 WB C Auto (Bld)Ordered By: Keenan Wu on 02-07-2024 Immature granulocytes/100 WBC (Bld) 0.400 % 0.0-0.9 [facility] Comment on above: IG% - Immature Granu locytes (promyelocytes, myelocytes and metamyelocytes) > 1% indicates that a LEFT SHIFT is Present. Ketones Test strip Ql (U)Ord ered By: Keenan Wu on 02-07-2024 Ketones Ql (U) Negative Negative [facility] - Chemistry and C hemistry - challengeOrdered By: Keenan Wu on 02-07-2024 Albumin/Globulin [Mass ratio] 1.1 {ratio} 0.9-2.4 [facility] ALP [Catalytic activity/Vol] 105 U/L 45-117 [facility] ALT [Catalytic activity/Vol] 20 U/L 16-61 [facility] CO2 [Moles/Vol] 30.0 mmol/L 21.0-32.0 [facility] Globulin (S) [Mass/Vol] 3.6 g/dL 2.2-4.2 [facility] Urea nitrogen/Creatinine [Mass ratio] 17.4 mg/mg 10-20 [facility] - Drug toxicology Ordered By: Keenan Wu on 02-07-2024 Amphetamines Ql (U) Negative <1000 ng/mL [facility] Benzodiazepines Ql (U) Negative < 200 ng/mL [facility] Cannabinoids Screen Ql (U) Negative < 50 ng/mL [facility] Cocaine Ql (U) Negative < 300 ng/mL [facility] Opiates Ql (U) Negative < 300 ng/mL [facility] - Hematology and Cell countsOrdered By: Keenan Wu on 02-07-2024 MCH (RBC) [Entitic mass] 28.7 pg 27.0-32.0 [facility] MCHC (RBC) [Mass/Vol] 34.9 g/dL 32-36 [facility] Nucleated RBC/100 WBC (Bld) [Ratio] 0 % 0-5 [facility] Platelet mean volume (Bld) [Entitic vol] 9.6 fL 6.2-12.0 [facility] Platelets (Bld) [#/Vol] 255 10*3/uL 150-450 [facility] Mucus LM Ql (Urine sed)Order ed By: Keenan Wu on 02-07-2024 Mucus Ql (Urine sed) 0 SEEN /hpf [facility] Nitrite Test strip Ql (U)Ord ered By: Keenan Wu on 02-07-2024 Nitrite Ql (U) Negative Negative [facility] No Panel InformationOrdered By: Keenan Wu on 02-07-2024 Ethyl Alcohol Level < 3.0 mg/dL [facility] Comment on above: The serum:whole bloo d ethanol ratio is approximately 1.14and varies slightly with hematocrit. Medical Alcohol reference interval and critical value innon-tolerant individuals; 50 - 100 Impairment 100 Intoxication 100 - 250 Severe Poisoning 250 - 400 Deep/possible fatal coma MDMA (Ecstasy) Screen Negative < 500 ng/mL [facility] Urine Barbiturates Screen Negative < 200 ng/mL [facility] Urine Drug Screen Comment [facility] Comment on above: CONFIRMATORY TESTING FOR [...] Methadone Screen Negative < 300 ng/mL [facility] Urine RBC 0 SEEN /hpf 0-5 [facility] Estimated Creatinine Clearance Calc 87.42 ml/min [facility] Estimated GFR (MDRD) Amer 88 mL/min >60 [facility] Comment on above: GFR Calc Estimated GFR (MDRD) Non-Af Amer 72 mL/min >60 [facility] Comment on above: Non- GFR Calc Protein Test strip Ql (U)Ord ered By: Keenan Wu on 02-07-2024 Protein Ql (U) 15 mg/dl Negative [facility] RBC Auto (Bld) [#/Vol]Ordere d By: Keenan Wu on 02-07-2024 RBC (Bld) [#/Vol] 5.37 10*6/uL 4.6-6.2 [facility] Serum or plasma calcium yayo urement (mass/volume)Ordered By: Keenan Wu on 02-07-2024 Calcium [Mass/Vol] 10.2 mg/dL 8.5-10.1 [facility] Serum or plasma creatinine m easurement (mass/volume)Ordered By: Keenan Wu on 02-07-2024 Creatinine [Mass/Vol] 1.09 mg/dL 0.70-1.30 [facility] Comment on above: The validity of the calculated GFR & GFRAA in patients over 70 years has not been determined. Clinical correlation is essential. Serum or plasma urea nitroge n measurement (mass/volume)Ordered By: Keenan Wu on 02-07-2024 Urea nitrogen [Mass/Vol] 19 mg/dL 7-18 [facility] Squamous epithelial cells de tection in urine sediment by light microscopyOrdered By: Keenan Wu on 02-07-2024 Epithelial cells.squamous LM Ql (Urine sed) 0 SEEN /hpf 0-5 [facility] Thin prep Papanicolaou smear with manual screeningOrdered By: Keenan Wu on 02-07-2024 Thin prep Papanicolaou smear with manual screening 379 mg/dL 74-106 [facility] Comment on above: MANAGEMENT OF PATIEN T CARE PER NURSING PROTOCOL Thin prep Papanicolaou smear with manual screening 3.9 g/dL 3.2-5.0 [facility] Thin prep Papanicolaou smear with manual screening 12 U/L 15-37 [facility] Thin prep Papanicolaou smear with manual screening 6 5-15 [facility] Urine blood detectionOrdered By: Keenan Wu on 02-07-2024 RBC Ql (U) Negative Negative [facility] Urine clarityOrdered By: Osvaldo Wu on 02-07-2024 Clarity (U) Clear Clear [facility] Urine color determinationOrd ered By: Keenan Wu on 02-07-2024 Color (U) Yellow Yellow [facility] Urine glucose detectionOrder ed By: Keenan Wu on 02-07-2024 Glucose Ql (U) 1000 mg/dl Normal [facility] Urine leukocyte esterase det ection by dipstickOrdered By: Keenan Wu on 02-07-2024 Leukocyte esterase Test strip Ql (U) Negative Negative [facility] Urine pHOrdered By: Keenan overton on 02-07-2024 pH (U) 6.0 [pH] 5.0 - 8.0 [facility] Urine phencyclidine (PCP) de tectionOrdered By: Keenan Wu on 02-07-2024 Phencyclidine Ql (U) Negative < 25 ng/mL [facility] Urine sediment bacteria coun t by microscopy (number/high power field)Ordered By: Keenan Wu on 02-07-2024 Bacteria LM.HPF (Urine sed) [#/Area] 0 /[HPF] None Seen [facility] Urine specific gravity measu rementOrdered By: Keenan Wu on 02-07-2024 Specific gravity (U) [Rel density] 1.015 1.002-1.030 [facility] Urine urobilinogen measureme ntOrdered By: Keenan Wu on 02-07-2024 Urobilinogen Ql (U) Normal mg/dl Normal [facility] Amorphous sediment detection in urine sediment by light microscopyOrdered By: Shania Disla on 01-27-2024 Amorphous sediment LM Ql (Urine sed) 0 SEEN [facility] Basophil percentageOrdered B y: Shania Disla on 01-27-2024 Basophil percentage 0 SEEN /hpf 0-5 [facility] Bilirubin Test strip Ql (U)O rdered By: Shania Disla on 01-27-2024 Bilirubin Ql (U) Negative Negative [facility] Calcium oxalate crystals det ection in urine sediment by light microscopyOrdered By: Shania Disla on 01-27-2024 Calcium oxalate crystals LM Ql (Urine sed) 0 SEEN /hpf [facility] Hyaline casts LM.LPF (Urine sed) [#/Area]Ordered By: Shania Disla on 01-27-2024 Hyaline casts (Urine sed) [#/Area] 0 /[LPF] 0-5 [facility] Ketones Test strip Ql (U)Ord ered By: Shania Disla on 01-27-2024 Ketones Ql (U) Negative Negative [facility] Magnesium ammonium phosphate crystal detectionOrdered By: Shania Disla on 01-27-2024 Triple phosphate crystals LM Ql (Urine sed) 0 SEEN /hpf [facility] Mucus LM Ql (Urine sed)Order ed By: Shania Disla on 01-27-2024 Mucus Ql (Urine sed) 0 SEEN /hpf [facility] Nitrite Test strip Ql (U)Ord ered By: Shania Disla on 01-27-2024 Nitrite Ql (U) Negative Negative [facility] No Panel InformationOrdered By: Shania Disla on 01-27-2024 Urine RBC 0 SEEN /hpf 0-5 [facility] Protein Test strip Ql (U)Ord ered By: Shania Disla on 01-27-2024 Protein Ql (U) Negative Negative [facility] Squamous epithelial cells de tection in urine sediment by light microscopyOrdered By: Shania Disla on 01-27-2024 Epithelial cells.squamous LM Ql (Urine sed) 5-10 SEEN /hpf 0-5 [facility] Thin prep Papanicolaou smear with manual screeningOrdered By: Shania Disla on 01-27-2024 Thin prep Papanicolaou smear with manual screening 277 mg/dL 74-106 [facility] Comment on above: MANAGEMENT OF PATIEN T CARE PER NURSING PROTOCOL Urine blood detectionOrdered By: Shania Disla on 01-27-2024 RBC Ql (U) Negative Negative [facility] Urine clarityOrdered By: Anamaria Disla on 01-27-2024 Clarity (U) Clear Clear [facility] Urine coarse granular cast d etectionOrdered By: Shania Disla on 01-27-2024 Coarse Granular Casts LM Ql (Urine sed) 0 SEEN /lpf 0-5 /lpf [facility] Urine color determinationOrd ered By: Shania Disla on 01-27-2024 Color (U) Straw Yellow [facility] Urine glucose detectionOrder ed By: Shania Disla on 01-27-2024 Glucose Ql (U) 1000 mg/dl Normal [facility] Urine leukocyte esterase det ection by dipstickOrdered By: Shania Disla on 01-27-2024 Leukocyte esterase Test strip Ql (U) Negative Negative [facility] Urine pHOrdered By: Shania Disla on 01-27-2024 pH (U) 6.0 [pH] 5.0 - 8.0 [facility] Urine sediment Trichomonas s pecies count by microscopy (number/low power field)Ordered By: Shania Disla on 01-27-2024 Trichomonas sp LM.LPF (Urine sed) [#/Area] 0 SEEN /hpf None Seen [facility] Urine sediment bacteria coun t by microscopy (number/high power field)Ordered By: Shania Disla on 01-27-2024 Bacteria LM.HPF (Urine sed) [#/Area] 0 /[HPF] None Seen [facility] Urine sediment erythrocyte c ast detection by light microscopyOrdered By: Shania Disla on 01-27-2024 RBC casts LM Ql (Urine sed) 0 SEEN /lpf None Seen [facility] Urine sediment fine granular cast count by microscopy (number/low power field)Ordered By: Shania Disla on 01-27-2024 Fine Granular Casts LM.LPF (Urine sed) [#/Area] 0 SEEN /lpf 0-5 [facility] Urine sediment leukocyte pooja t count by microscopy (number/low power field)Ordered By: Shania Disla on 01-27-2024 WBC casts LM.LPF (Urine sed) [#/Area] 0 SEEN /lpf None Seen [facility] Urine sediment unidentified crystal count by microscopy (number/high powered field)Ordered By: Shania Disla on 01-27-2024 Unidentified crystals LM.HPF (Urine sed) [#/Area] 0 SEEN /hpf None Seen [facility] Urine sediment uric acid cry stal count by microscopy (number/high power field)Ordered By: Shania Disla on 01-27-2024 Urate crystals LM.HPF (Urine sed) [#/Area] 0 /[HPF] [facility] Urine sediment yeast count b y microscopy (number/high powered field)Ordered By: Shania Disla on 01-27-2024 Yeast LM.HPF (Urine sed) [#/Area] RARE /hpf None Seen [facility] Urine specific gravity measu rementOrdered By: Shania Disla on 01-27-2024 Specific gravity (U) [Rel density] 1.015 1.002-1.030 [facility] Urine urobilinogen measureme ntOrdered By: Shania Disla on 01-27-2024 Urobilinogen Ql (U) Normal mg/dl Normal [facility] Waxy casts detection in urin e sediment by light microscopyOrdered By: Shania Disla on 01-27-2024 Waxy casts LM Ql (Urine sed) 0 SEEN /lpf None Seen [facility] Absolute lymphocyte countOrd ered By: Shania Disla on 01-26-2024 Lymphocytes Auto (Unsp spec) [#/Vol] 0.82 10*3/uL 0.83-4.51 [facility] Automated lymphocyte count a s percentage of total leukocytesOrdered By: Shania Disla on 01-26-2024 Lymphocytes/100 WBC Auto (Unsp spec) 8.4 % 19-41 [facility] Basophil percentageOrdered B y: Shania Disla on 01-26-2024 Basophils/100 WBC (Bld) 0.2 % 0-1 [facility] Bilirubin [Mass/Vol] 0.70 mg/dL 0.20-1.00 [facility] Comment on above: For patients on eltr ombopag therapy, use of Dimension [place] TBIL is not recommended. Chloride [Moles/Vol] 100 mmol/L 98-107 [facility] Eosinophils/100 WBC (Bld) 1.8 % 0-5 [facility] Glucose [Mass/Vol] 553 mg/dL 74-106 [facility] Comment on above: Glucose result great er than or equal to 200 mg/dLsuggests DIABETES MELLITUS per A.D.A. criteria. Hemoglobin (Bld) [Mass/Vol] 14.3 g/dL 13.0-16.5 [facility] Monocytes/100 WBC (Bld) 6.3 % 0-10 [facility] Neutrophils (Bld) [#/Vol] 8.1 10*3/uL 2.0-7.7 [facility] Neutrophils/100 WBC (Bld) 83.0 % 47-70 [facility] Potassium [Moles/Vol] 4.2 mmol/L 3.5-5.1 [facility] Protein [Mass/Vol] 6.8 g/dL 6.4-8.2 [facility] Sodium [Moles/Vol] 135 mmol/L 136-145 [facility] Comment on above: Critical Result(s) C alled at: 00:43:16 01/27/2024 by: Britney Beasley to [employer]. Results read back by same. WBC (Bld) [#/Vol] 9.8 10*3/uL 4.4-11.0 [facility] Determination of erythrocyte mean corpuscular volume (MCV)Ordered By: Shania Disla on 01-26-2024 MCV (RBC) [Entitic vol] 82.4 fL 80-94 [facility] Direct bilirubinOrdered By: Shania Disla on 01-26-2024 Bilirubin.direct [Mass/Vol] 0.20 mg/dL 0.00-0.30 [facility] Erythrocyte distribution wid th ratioOrdered By: Shania Disla on 01-26-2024 Erythrocyte distribution width (RBC) [Ratio] 13.4 % 11.6-14.6 [facility] Erythrocyte distribution wid th standard deviationOrdered By: Shania Disla on 01-26-2024 Erythrocyte distribution width (RBC) [Entitic vol] 39.9 fL 35.1-43.9 [facility] Hematocrit Auto (Bld) [Volum e fraction]Ordered By: Shania Disla on 01-26-2024 Hematocrit (Bld) [Volume fraction] 40.8 % 40-54 [facility] Immature granulocytes/100 WB C Auto (Bld)Ordered By: Shania Disla on 01-26-2024 Immature granulocytes/100 WBC (Bld) 0.300 % 0.0-0.9 [facility] Comment on above: IG% - Immature Granu locytes (promyelocytes, myelocytes and metamyelocytes) > 1% indicates that a LEFT SHIFT is Present. Laboratory - Chemistry and C hemistry - challengeOrdered By: Shania Disla on 01-26-2024 ALP [Catalytic activity/Vol] 71 U/L 45-117 [facility] ALT [Catalytic activity/Vol] 24 U/L 16-61 [facility] CO2 [Moles/Vol] 30.0 mmol/L 21.0-32.0 [facility] Globulin (S) [Mass/Vol] 3.2 g/dL 2.2-4.2 [facility] Urea nitrogen/Creatinine [Mass ratio] 12.5 mg/mg 10-20 [facility] Laboratory - Hematology and Cell countsOrdered By: Shania Disla on 01-26-2024 MCH (RBC) [Entitic mass] 28.9 pg 27.0-32.0 [facility] MCHC (RBC) [Mass/Vol] 35.0 g/dL 32-36 [facility] Nucleated RBC/100 WBC (Bld) [Ratio] 0 % 0-5 [facility] Platelet mean volume (Bld) [Entitic vol] 9.4 fL 6.2-12.0 [facility] Platelets (Bld) [#/Vol] 167 10*3/uL 150-450 [facility] Laboratory - Microbiology an d Antimicrobial susceptibilityOrdered By: Shania Disla on 01-26-2024 SARS-CoV-2 (COVID-19) RNA IOANA+probe Ql (Unsp spec) [facility] No Panel InformationOrdered By: Shania Disla on 01-26-2024 Estimated Creatinine Clearance Calc 85.08 ml/min [facility] Estimated GFR (MDRD) Amer 85 mL/min >60 [facility] Comment on above: GFR Calc Estimated GFR (MDRD) Non-Af Amer 70 mL/min >60 [facility] Comment on above: Non- GFR Calc RBC Auto (Bld) [#/Vol]Ordere d By: Shania Disla on 01-26-2024 RBC (Bld) [#/Vol] 4.95 10*6/uL 4.6-6.2 [facility] Serum or plasma acetone yayo urement (mass/volume)Ordered By: Shania Disla on 01-26-2024 Acetone [Mass/Vol] Negative NEG [facility] Serum or plasma calcium yayo urement (mass/volume)Ordered By: Shania Disla on 01-26-2024 Calcium [Mass/Vol] 9.3 mg/dL 8.5-10.1 [facility] Serum or plasma creatinine m easurement (mass/volume)Ordered By: Shania Disla on 01-26-2024 Creatinine [Mass/Vol] 1.12 mg/dL 0.70-1.30 [facility] Comment on above: The validity of the calculated GFR & GFRAA in patients over 70 years has not been determined. Clinical correlation is essential. Serum or plasma urea nitroge n measurement (mass/volume)Ordered By: Shania Disla on 01-26-2024 Urea nitrogen [Mass/Vol] 14 mg/dL 7-18 [facility] Thin prep Papanicolaou smear with manual screeningOrdered By: Shania Disla on 01-26-2024 Thin prep Papanicolaou smear with manual screening 3.6 g/dL 3.2-5.0 [facility] Thin prep Papanicolaou smear with manual screening 16 U/L 15-37 [facility] Thin prep Papanicolaou smear with manual screening 5 5-15 [facility] Erythrocyte sedimentation ra teOrdered By: Linden Chavez on 01-05-2024 ESR (Bld) [Velocity] 3 mm/h 0-20 [facility] No Panel InformationOrdered By: Linden Chavez on 01-05-2024 C-Reactive Protein Extended Range 3.41 mg/L 0.0-3.0 [facility] Comment on above: C-Reactive Protein ( CRP) provides useful information for thediagnosis, therapy and monitoring of inflammatory processesand associated diseases. For the evaluation of Relative Riskfor Cardiovascular Disease, a High Sensitivity CRP (HSCRP)should be ordered. Endomysial IgA Antibody Negative Negative [facility] Serum or plasma IgA measurem ent (mass/volume)Ordered By: Linden Chavez on 01-05-2024 IgA [Mass/Vol] 363 mg/dL 61-437 [facility] Comment on above: Performed at: [place] [id number] Director: Rasheed Denney PhD, Phone: [phone] Serum or plasma thyroid stim ulating hormone (TSH) measurement (units/volume)Ordered By: Linden Chavez on 01-05-2024 TSH Qn 8.45 uIU/mL 0.358-3.74 [facility] Serum tissue transglutaminas e IgA antibody assay (units/volume)Ordered By: Linden Chavez on 01-05-2024 tTG IgA Qn (S) <2 U/mL 0-3 [facility] Comment on above: Negative 0 - 3 Weak Positive 4 - 10 Positive >10 Tissue Transglutaminase (tTG) has been identified as the endomysial antigen. Studies have demonstr- ated that endomysial IgA antibodies have over 99% specificity for gluten sensitive enteropathy. Whole blood hemoglobin A1c/t otal hemoglobin ratio (mass fraction)Ordered By: Linden Chavez on 01-05-2024 HbA1c (Bld) [Mass fraction] 12.2 % 3.8-5.6 [facility] Comment on above: Normal < 5.7 % Predi abetic 5.7 - 6.4 % Diabetic >or= 6.5 % Please note range changes. Basophil percentageOrdered B y: Shania Disla on 12-25-2023 Chloride [Moles/Vol] 102 mmol/L 98-107 [facility] Glucose [Mass/Vol] 476 mg/dL 74-106 [facility] Comment on above: Critical Result(s) C alled at: 09:52:20 12/25/2023 by: Santana Gaytan to Gabriela KOENIG (ER). Results read back by same.Glucose result greater than or equal to 200 mg/dLsuggests DIABETES MELLITUS per A.D.A. criteria. Potassium [Moles/Vol] 3.8 mmol/L 3.5-5.1 [facility] Sodium [Moles/Vol] 134 mmol/L 136-145 [facility] Laboratory - Chemistry and C hemistry - challengeOrdered By: Shania Disla on 12-25-2023 CO2 [Moles/Vol] 28.0 mmol/L 21.0-32.0 [facility] Urea nitrogen/Creatinine [Mass ratio] 16.5 mg/mg 10-20 [facility] No Panel InformationOrdered By: Shania Disla on 12-25-2023 Estimated Creatinine Clearance Calc 82.86 ml/min [facility] Estimated GFR (MDRD) Amer 82 mL/min >60 [facility] Comment on above: GFR Calc Estimated GFR (MDRD) Non-Af Amer 68 mL/min >60 [facility] Comment on above: Non- GFR Calc Serum or plasma calcium yayo urement (mass/volume)Ordered By: Shania Disla on 12-25-2023 Calcium [Mass/Vol] 9.3 mg/dL 8.5-10.1 [facility] Serum or plasma creatinine m easurement (mass/volume)Ordered By: Shania Disla on 12-25-2023 Creatinine [Mass/Vol] 1.15 mg/dL 0.70-1.30 [facility] Comment on above: The validity of the calculated GFR & GFRAA in patients over 70 years has not been determined. Clinical correlation is essential. Serum or plasma urea nitroge n measurement (mass/volume)Ordered By: Shania Disla on 12-25-2023 Urea nitrogen [Mass/Vol] 19 mg/dL 7-18 [facility] Thin prep Papanicolaou smear with manual screeningOrdered By: Shania Disla on 12-25-2023 Thin prep Papanicolaou smear with manual screening 354 mg/dL 74-106 [facility] Comment on above: MANAGEMENT OF PATIEN T CARE PER NURSING PROTOCOL Thin prep Papanicolaou smear with manual screening 4 5-15 [facility] Absolute lymphocyte countOrd ered By: Barry Mathew on 11-22-2023 Lymphocytes Auto (Unsp spec) [#/Vol] 1.40 10*3/uL 0.83-4.51 [facility] Automated lymphocyte count a s percentage of total leukocytesOrdered By: Barry Mathew on 11-22-2023 Lymphocytes/100 WBC Auto (Unsp spec) 18.9 % 19-41 [facility] Basophil percentageOrdered B y: Barry Mathew on 11-22-2023 Basophil percentage 0-5 SEEN /hpf 0-5 [facility] Basophils/100 WBC (Bld) 0.4 % 0-1 [facility] Bilirubin [Mass/Vol] 0.80 mg/dL 0.20-1.00 [facility] Comment on above: For patients on eltr ombopag therapy, use of Dimension [place] TBIL is not recommended. Chloride [Moles/Vol] 101 mmol/L 98-107 [facility] Eosinophils/100 WBC (Bld) 4.5 % 0-5 [facility] Glucose [Mass/Vol] 357 mg/dL 74-106 [facility] Comment on above: Glucose result great er than or equal to 200 mg/dLsuggests DIABETES MELLITUS per A.D.A. criteria. Hemoglobin (Bld) [Mass/Vol] 15.7 g/dL 13.0-16.5 [facility] Monocytes/100 WBC (Bld) 5.0 % 0-10 [facility] Neutrophils (Bld) [#/Vol] 5.3 10*3/uL 2.0-7.7 [facility] Neutrophils/100 WBC (Bld) 70.9 % 47-70 [facility] Potassium [Moles/Vol] 3.8 mmol/L 3.5-5.1 [facility] Protein [Mass/Vol] 7.6 g/dL 6.4-8.2 [facility] Sodium [Moles/Vol] 137 mmol/L 136-145 [facility] WBC (Bld) [#/Vol] 7.4 10*3/uL 4.4-11.0 [facility] Bilirubin Test strip Ql (U)O rdered By: Barry Mathew on 11-22-2023 Bilirubin Ql (U) Negative Negative [facility] Determination of erythrocyte mean corpuscular volume (MCV)Ordered By: Barry Mathew on 11-22-2023 MCV (RBC) [Entitic vol] 81.6 fL 80-94 [facility] Erythrocyte distribution wid th ratioOrdered By: Barry Mathew on 11-22-2023 Erythrocyte distribution width (RBC) [Ratio] 13.4 % 11.6-14.6 [facility] Erythrocyte distribution wid th standard deviationOrdered By: Barry Mathew on 11-22-2023 Erythrocyte distribution width (RBC) [Entitic vol] 39.2 fL 35.1-43.9 [facility] Hematocrit Auto (Bld) [Volum e fraction]Ordered By: Barry Mathew on 11-22-2023 Hematocrit (Bld) [Volume fraction] 45.6 % 40-54 [facility] Immature granulocytes/100 WB C Auto (Bld)Ordered By: Barry Mathew on 11-22-2023 Immature granulocytes/100 WBC (Bld) 0.300 % 0.0-0.9 [facility] Comment on above: IG% - Immature Granu locytes (promyelocytes, myelocytes and metamyelocytes) > 1% indicates that a LEFT SHIFT is Present. Ketones Test strip Ql (U)Ord ered By: Barry Mathew on 11-22-2023 Ketones Ql (U) Negative Negative [facility] Laboratory - Chemistry and C hemistry - challengeOrdered By: Barry Mathew on 11-22-2023 Albumin/Globulin [Mass ratio] 0.9 {ratio} 0.9-2.4 [facility] ALP [Catalytic activity/Vol] 100 U/L 45-117 [facility] ALT [Catalytic activity/Vol] 16 U/L 16-61 [facility] CO2 [Moles/Vol] 33.0 mmol/L 21.0-32.0 [facility] Globulin (S) [Mass/Vol] 3.9 g/dL 2.2-4.2 [facility] Urea nitrogen/Creatinine [Mass ratio] 13.9 mg/mg 10-20 [facility] Laboratory - Hematology and Cell countsOrdered By: Barry Mathew on 11-22-2023 MCH (RBC) [Entitic mass] 28.1 pg 27.0-32.0 [facility] MCHC (RBC) [Mass/Vol] 34.4 g/dL 32-36 [facility] Nucleated RBC/100 WBC (Bld) [Ratio] 0 % 0-5 [facility] Platelets (Bld) [#/Vol] 220 10*3/uL 150-450 [facility] Mucus LM Ql (Urine sed)Order ed By: Barry Mathew on 11-22-2023 Mucus Ql (Urine sed) RARE /hpf [facility] Nitrite Test strip Ql (U)Ord ered By: Barry Mathew on 11-22-2023 Nitrite Ql (U) Negative Negative [facility] No Panel InformationOrdered By: Barry Mathew on 11-22-2023 Urine RBC 0 SEEN /hpf 0-5 [facility] Estimated Creatinine Clearance Calc 101.37 ml/min [facility] Estimated GFR (MDRD) Amer 105 mL/min >60 [facility] Comment on above: GFR Calc Estimated GFR (MDRD) Non-Af Amer 86 mL/min >60 [facility] Comment on above: Non- GFR Calc Troponin I High Sensitivity 5 pg/mL 3.0-78.0 [facility] Comment on above: Please Note: New Kira t Units and Gender Specific Reference Ranges. For more information see Policy Stat Procedure [place] High Sensitivity Troponin (TNIH) and attachments. Platelet mean volume Kamlesh-Ec ker (Bld) [Entitic vol]Ordered By: Barry Mathew on 11-22-2023 Platelet mean volume (Bld) [Entitic vol] 9.3 fL 6.2-12.0 [facility] Protein Test strip Ql (U)Ord ered By: Barry Mathew on 11-22-2023 Protein Ql (U) 15 mg/dl Negative [facility] RBC Auto (Bld) [#/Vol]Ordere d By: Barry Mathew on 11-22-2023 RBC (Bld) [#/Vol] 5.59 10*6/uL 4.6-6.2 [facility] Serum or plasma calcium yayo urement (mass/volume)Ordered By: Barry Mathew on 11-22-2023 Calcium [Mass/Vol] 10.2 mg/dL 8.5-10.1 [facility] Serum or plasma creatinine m easurement (mass/volume)Ordered By: Barry Mathew on 11-22-2023 Creatinine [Mass/Vol] 0.94 mg/dL 0.70-1.30 [facility] Comment on above: The validity of the calculated GFR & GFRAA in patients over 70 years has not been determined. Clinical correlation is essential. Serum or plasma urea nitroge n measurement (mass/volume)Ordered By: Barry Mathew on 11-22-2023 Urea nitrogen [Mass/Vol] 13 mg/dL 7-18 [facility] Squamous epithelial cells de tection in urine sediment by light microscopyOrdered By: Barry Mathew on 11-22-2023 Epithelial cells.squamous LM Ql (Urine sed) 0-5 SEEN /hpf 0-5 [facility] Thin prep Papanicolaou smear with manual screeningOrdered By: Barry Mathew on 11-22-2023 Thin prep Papanicolaou smear with manual screening 3.7 g/dL 3.2-5.0 [facility] Thin prep Papanicolaou smear with manual screening 9 U/L 15-37 [facility] Thin prep Papanicolaou smear with manual screening 3 5-15 [facility] Urine blood detectionOrdered By: Barry Mathew on 11-22-2023 RBC Ql (U) Negative Negative [facility] Urine clarityOrdered By: Silva Mathew on 11-22-2023 Clarity (U) Sl. Cloudy Clear [facility] Urine color determinationOrd ered By: Barry Mathew on 11-22-2023 Color (U) Yellow Yellow [facility] Urine glucose detectionOrder ed By: Barry Mathew on 11-22-2023 Glucose Ql (U) 1000 mg/dl Normal [facility] Urine leukocyte esterase det ection by dipstickOrdered By: Barry Mathew on 11-22-2023 Leukocyte esterase Test strip Ql (U) 25 /ul Negative [facility] Urine pHOrdered By: Barry otoole on 11-22-2023 pH (U) 5.0 [pH] 5.0 - 8.0 [facility] Urine sediment bacteria coun t by microscopy (number/high power field)Ordered By: Barry Mathew on 11-22-2023 Bacteria LM.HPF (Urine sed) [#/Area] RARE /hpf None Seen [facility] Urine sediment yeast count b y microscopy (number/high powered field)Ordered By: Barry Mathew on 11-22-2023 Yeast LM.HPF (Urine sed) [#/Area] RARE /hpf None Seen [facility] Urine specific gravity measu rementOrdered By: Barry Mathew on 11-22-2023 Specific gravity (U) [Rel density] 1.020 1.002-1.030 [facility] Urine urobilinogen measureme ntOrdered By: Barry Mathew on 11-22-2023 Urobilinogen Ql (U) 1 mg/dl Normal [facility] Absolute lymphocyte countOrd ered By: Live Ashley on 10-01-2023 Lymphocytes Auto (Unsp spec) [#/Vol] 1.41 10*3/uL 0.83-4.51 [facility] Basophil percentageOrdered B y: Live Ashley on 10-01-2023 Basophils/100 WBC (Bld) 0.3 % 0-1 [facility] Chloride [Moles/Vol] 105 mmol/L 98-107 [facility] Eosinophils/100 WBC (Bld) 2.2 % 0-5 [facility] Glucose [Mass/Vol] 429 mg/dL 74-106 [facility] Comment on above: Glucose result great er than or equal to 200 mg/dLsuggests DIABETES MELLITUS per A.D.A. criteria. Neutrophils (Bld) [#/Vol] 6.4 10*3/uL 2.0-7.7 [facility] Neutrophils/100 WBC (Bld) 74.6 % 47-70 [facility] Potassium [Moles/Vol] 4.0 mmol/L 3.5-5.1 [facility] Sodium [Moles/Vol] 137 mmol/L 136-145 [facility] WBC (Bld) [#/Vol] 8.6 10*3/uL 4.4-11.0 [facility] Blood erythrocytes count (nu mber/volume)Ordered By: Live Ashley on 10-01-2023 RBC (Bld) [#/Vol] 4.67 10*6/uL 4.6-6.2 [facility] Blood hemoglobin measurement (mass/volume)Ordered By: Live Ashley on 10-01-2023 Hemoglobin (Bld) [Mass/Vol] 13.4 g/dL 13.0-16.5 [facility] Blood lymphocytes/100 leukoc ytesOrdered By: Live Ashley on 10-01-2023 Lymphocytes/100 WBC (Bld) 16.4 % 19-41 [facility] Blood monocytes/100 leukocyt esOrdered By: Live Ashley on 10-01-2023 Monocytes/100 WBC (Bld) 6.3 % 0-10 [facility] Blood platelet mean volumeOr dered By: Live Ashley on 10-01-2023 Platelet mean volume (Bld) [Entitic vol] 9.4 fL 6.2-12.0 [facility] Determination of erythrocyte mean corpuscular volume (MCV)Ordered By: Live Ashley on 10-01-2023 MCV (RBC) [Entitic vol] 84.4 fL 80-94 [facility] Hematocrit Auto (Bld) [Volum e fraction]Ordered By: Live Ashley on 10-01-2023 Hematocrit (Bld) [Volume fraction] 39.4 % 40-54 [facility] Laboratory - Chemistry and C hemistry - challengeOrdered By: Live Ashley on 10-01-2023 CO2 [Moles/Vol] 28.0 mmol/L 21.0-32.0 [facility] Urea nitrogen/Creatinine [Mass ratio] 14.9 mg/mg 10-20 [facility] Laboratory - Hematology and Cell countsOrdered By: Live Ashley on 10-01-2023 Erythrocyte distribution width (RBC) [Entitic vol] 41.7 fL 35.1-43.9 [facility] Erythrocyte distribution width (RBC) [Ratio] 13.7 % 11.6-14.6 [facility] Immature granulocytes/100 WBC (Bld) 0.200 % 0.0-0.9 [facility] Comment on above: IG% - Immature Granu locytes (promyelocytes, myelocytes and metamyelocytes) > 1% indicates that a LEFT SHIFT is Present. MCH (RBC) [Entitic mass] 28.7 pg 27.0-32.0 [facility] Nucleated RBC/100 WBC (Bld) [Ratio] 0 % 0-5 [facility] MCHC Auto (RBC) [Mass/Vol]Or dered By: Live Ashley on 10-01-2023 MCHC (RBC) [Mass/Vol] 34.0 g/dL 32-36 [facility] No Panel InformationOrdered By: Live Ashley on 10-01-2023 Estimated Creatinine Clearance Calc 83.59 ml/min [facility] Estimated GFR (MDRD) Amer 83 mL/min >60 [facility] Comment on above: GFR Calc Estimated GFR (MDRD) Non-Af Amer 69 mL/min >60 [facility] Comment on above: Non- GFR Calc Platelets bldOrdered By: Pankaj Ashley on 10-01-2023 Platelets (Bld) [#/Vol] 211 10*3/uL 150-450 [facility] Serum or plasma calcium yayo urement (mass/volume)Ordered By: Live Ashley on 10-01-2023 Calcium [Mass/Vol] 8.8 mg/dL 8.5-10.1 [facility] Serum or plasma creatinine m easurement (mass/volume)Ordered By: Live Ashley on 10-01-2023 Creatinine [Mass/Vol] 1.14 mg/dL 0.70-1.30 [facility] Comment on above: The validity of the calculated GFR & GFRAA in patients over 70 years has not been determined. Clinical correlation is essential. Serum or plasma urea nitroge n measurement (mass/volume)Ordered By: Live Ashley on 10-01-2023 Urea nitrogen [Mass/Vol] 17 mg/dL 7-18 [facility] Stool gastrointestinal hemog lobin detection by immunologic methodOrdered By: Live Ashley on 10-01-2023 Lower GI hemoglobin IA Ql (Stl) [facility] Lower GI hemoglobin IA Ql (Stl) [facility] Thin prep Papanicolaou smear with manual screeningOrdered By: Live Ashley on 10-01-2023 Thin prep Papanicolaou smear with manual screening 4 5-15 [facility] Absolute lymphocyte countOrd ered By: Barry Mathew on 09-29-2023 Lymphocytes Auto (Unsp spec) [#/Vol] 1.47 10*3/uL 0.83-4.51 [facility] Basophil percentageOrdered B y: Barry Mathew on 09-29-2023 Basophils/100 WBC (Bld) 0.6 % 0-1 [facility] Bilirubin [Mass/Vol] 0.40 mg/dL 0.20-1.00 [facility] Comment on above: For patients on eltr ombopag therapy, use of Dimension [place] TBIL is not recommended. Chloride [Moles/Vol] 105 mmol/L 98-107 [facility] Eosinophils/100 WBC (Bld) 1.7 % 0-5 [facility] Glucose [Mass/Vol] 213 mg/dL 74-106 [facility] Comment on above: Glucose result great er than or equal to 200 mg/dLsuggests DIABETES MELLITUS per A.D.A. criteria. Neutrophils (Bld) [#/Vol] 8.5 10*3/uL 2.0-7.7 [facility] Neutrophils/100 WBC (Bld) 78.5 % 47-70 [facility] Potassium [Moles/Vol] 3.9 mmol/L 3.5-5.1 [facility] Protein [Mass/Vol] 7.2 g/dL 6.4-8.2 [facility] Sodium [Moles/Vol] 137 mmol/L 136-145 [facility] WBC (Bld) [#/Vol] 10.9 10*3/uL 4.4-11.0 [facility] Blood erythrocytes count (nu mber/volume)Ordered By: Barry Mathew on 09-29-2023 RBC (Bld) [#/Vol] 4.98 10*6/uL 4.6-6.2 [facility] Blood hemoglobin measurement (mass/volume)Ordered By: Barry Mathew on 09-29-2023 Hemoglobin (Bld) [Mass/Vol] 14.0 g/dL 13.0-16.5 [facility] Blood lymphocytes/100 leukoc ytesOrdered By: Barry Mathew on 09-29-2023 Lymphocytes/100 WBC (Bld) 13.5 % 19-41 [facility] Blood monocytes/100 leukocyt esOrdered By: Barry Mathew on 09-29-2023 Monocytes/100 WBC (Bld) 5.2 % 0-10 [facility] Blood platelet mean volumeOr dered By: Barry Mathew on 09-29-2023 Platelet mean volume (Bld) [Entitic vol] 9.2 fL 6.2-12.0 [facility] Determination of erythrocyte mean corpuscular volume (MCV)Ordered By: Barry Mathew on 09-29-2023 MCV (RBC) [Entitic vol] 82.5 fL 80-94 [facility] Hematocrit Auto (Bld) [Volum e fraction]Ordered By: Barry Mathew on 09-29-2023 Hematocrit (Bld) [Volume fraction] 41.1 % 40-54 [facility] Laboratory - Chemistry and C hemistry - challengeOrdered By: Barry Mathew on 09-29-2023 ALP [Catalytic activity/Vol] 100 U/L 45-117 [facility] ALT [Catalytic activity/Vol] 14 U/L 16-61 [facility] CO2 [Moles/Vol] 28.0 mmol/L 21.0-32.0 [facility] Globulin (S) [Mass/Vol] 3.7 g/dL 2.2-4.2 [facility] Lipase [Catalytic activity/Vol] 13 U/L 13-75 [facility] Comment on above: Please note:LIPASE r evised reference range effective 23. New Lipase methodology. Expected to produce lower values than the previous assay method. NEW Reference Range: 13 - 75 U/L Urea nitrogen/Creatinine [Mass ratio] 16.5 mg/mg 10-20 [facility] Laboratory - Hematology and Cell countsOrdered By: Barry Mathew on 09-29-2023 Erythrocyte distribution width (RBC) [Entitic vol] 39.8 fL 35.1-43.9 [facility] Erythrocyte distribution width (RBC) [Ratio] 13.4 % 11.6-14.6 [facility] Immature granulocytes/100 WBC (Bld) 0.500 % 0.0-0.9 [facility] Comment on above: IG% - Immature Granu locytes (promyelocytes, myelocytes and metamyelocytes) > 1% indicates that a LEFT SHIFT is Present. MCH (RBC) [Entitic mass] 28.1 pg 27.0-32.0 [facility] Nucleated RBC/100 WBC (Bld) [Ratio] 0 % 0-5 [facility] MCHC Auto (RBC) [Mass/Vol]Or dered By: Barry Mathew on 09-29-2023 MCHC (RBC) [Mass/Vol] 34.1 g/dL 32-36 [facility] No Panel InformationOrdered By: Barry Mathew on 09-29-2023 Estimated Creatinine Clearance Calc 92.51 ml/min [facility] Estimated GFR (MDRD) Amer 94 mL/min >60 [facility] Comment on above: GFR Calc Estimated GFR (MDRD) Non-Af Amer 77 mL/min >60 [facility] Comment on above: Non- GFR Calc Platelets bldOrdered By: Silva Mathew on 09-29-2023 Platelets (Bld) [#/Vol] 226 10*3/uL 150-450 [facility] Serum or plasma albumin yayo urement (mass/volume)Ordered By: Barry Mathew on 09-29-2023 Albumin [Mass/Vol] 3.5 g/dL 3.2-5.0 [facility] Serum or plasma albumin/glob ulin mass ratioOrdered By: Barry Mathew on 09-29-2023 Albumin/Globulin [Mass ratio] 0.9 {ratio} 0.9-2.4 [facility] Serum or plasma calcium yayo urement (mass/volume)Ordered By: Barry Mathew on 09-29-2023 Calcium [Mass/Vol] 8.7 mg/dL 8.5-10.1 [facility] Serum or plasma creatinine m easurement (mass/volume)Ordered By: Barry Mathew on 09-29-2023 Creatinine [Mass/Vol] 1.03 mg/dL 0.70-1.30 [facility] Comment on above: The validity of the calculated GFR & GFRAA in patients over 70 years has not been determined. Clinical correlation is essential. Serum or plasma urea nitroge n measurement (mass/volume)Ordered By: Barry Mathew on 09-29-2023 Urea nitrogen [Mass/Vol] 17 mg/dL 7-18 [facility] Thin prep Papanicolaou smear with manual screeningOrdered By: Barry Mathew on 09-29-2023 Thin prep Papanicolaou smear with manual screening 9 U/L 15-37 [facility] Thin prep Papanicolaou smear with manual screening 4 5-15 [facility] Absolute lymphocyte countOrd ered By: Ar Calle on 07-29-2023 Lymphocytes Auto (Unsp spec) [#/Vol] 1.27 10*3/uL 0.83-4.51 [facility] Basophil percentageOrdered B y: Ar Calle on 07-29-2023 Basophils/100 WBC (Bld) 0.7 % 0-1 [facility] Chloride [Moles/Vol] 100 mmol/L 98-107 [facility] Eosinophils/100 WBC (Bld) 2.4 % 0-5 [facility] Glucose [Mass/Vol] 408 mg/dL 74-106 [facility] Comment on above: Glucose result great er than or equal to 200 mg/dLsuggests DIABETES MELLITUS per A.D.A. criteria. Neutrophils (Bld) [#/Vol] 6.2 10*3/uL 2.0-7.7 [facility] Neutrophils/100 WBC (Bld) 74.4 % 47-70 [facility] Potassium [Moles/Vol] 4.0 mmol/L 3.5-5.1 [facility] Sodium [Moles/Vol] 135 mmol/L 136-145 [facility] WBC (Bld) [#/Vol] 8.3 10*3/uL 4.4-11.0 [facility] Blood erythrocytes count (nu mber/volume)Ordered By: Ar Calle on 07-29-2023 RBC (Bld) [#/Vol] 4.62 10*6/uL 4.6-6.2 [facility] Blood hemoglobin measurement (mass/volume)Ordered By: Ar Calle on 07-29-2023 Hemoglobin (Bld) [Mass/Vol] 12.9 g/dL 13.0-16.5 [facility] Blood lymphocytes/100 leukoc ytesOrdered By: Arsusan Calle on 07-29-2023 Lymphocytes/100 WBC (Bld) 15.2 % 19-41 [facility] Blood monocytes/100 leukocyt esOrdered By: Arsusan Calle on 07-29-2023 Monocytes/100 WBC (Bld) 6.7 % 0-10 [facility] Blood platelet mean volumeOr dered By: Ar Calle on 07-29-2023 Platelet mean volume (Bld) [Entitic vol] 9.5 fL 6.2-12.0 [facility] Determination of erythrocyte mean corpuscular volume (MCV)Ordered By: Ar Calle on 07-29-2023 MCV (RBC) [Entitic vol] 81.8 fL 80-94 [facility] Glucose Glucometer (dC) [M ass/Vol]Ordered By: Ar Calle on 07-29-2023 Glucose [Mass/Vol] 400 mg/dL 74-106 [facility] Comment on above: MANAGEMENT OF PATIEN T CARE PER NURSING PROTOCOL Hematocrit Auto (Bld) [Volum e fraction]Ordered By: Ar Calle on 07-29-2023 Hematocrit (Bld) [Volume fraction] 37.8 % 40-54 [facility] Laboratory - Chemistry and C hemistry - challengeOrdered By: Ar Calle on 07-29-2023 CO2 [Moles/Vol] 30.0 mmol/L 21.0-32.0 [facility] Urea nitrogen/Creatinine [Mass ratio] 11.1 mg/mg 10-20 [facility] Laboratory - Hematology and Cell countsOrdered By: Ar Calle on 07-29-2023 Erythrocyte distribution width (RBC) [Entitic vol] 39.1 fL 35.1-43.9 [facility] Erythrocyte distribution width (RBC) [Ratio] 13.3 % 11.6-14.6 [facility] Immature granulocytes/100 WBC (Bld) 0.600 % 0.0-0.9 [facility] Comment on above: IG% - Immature Granu locytes (promyelocytes, myelocytes and metamyelocytes) > 1% indicates that a LEFT SHIFT is Present. MCH (RBC) [Entitic mass] 27.9 pg 27.0-32.0 [facility] Nucleated RBC/100 WBC (Bld) [Ratio] 0 % 0-5 [facility] MCHC Auto (RBC) [Mass/Vol]Or dered By: Ar Calle on 07-29-2023 MCHC (RBC) [Mass/Vol] 34.1 g/dL 32-36 [facility] No Panel InformationOrdered By: Ar Calle on 07-29-2023 Estimated Creatinine Clearance Calc 75.63 ml/min [facility] Estimated GFR (MDRD) Amer 74 mL/min >60 [facility] Comment on above: GFR Calc Estimated GFR (MDRD) Non-Af Amer 61 mL/min >60 [facility] Comment on above: Non- GFR Calc Troponin I High Sensitivity 4 pg/mL 3.0-78.0 [facility] Comment on above: Please Note: New Kira t Units and Gender Specific Reference Ranges. For more information see Policy Stat Procedure [place] High Sensitivity Troponin (TNIH) and attachments. Platelets bldOrdered By: Ar Calle on 07-29-2023 Platelets (Bld) [#/Vol] 208 10*3/uL 150-450 [facility] Serum or plasma calcium yayo urement (mass/volume)Ordered By: Ar Calle on 07-29-2023 Calcium [Mass/Vol] 8.5 mg/dL 8.5-10.1 [facility] Serum or plasma creatinine m easurement (mass/volume)Ordered By: Ar Calle on 07-29-2023 Creatinine [Mass/Vol] 1.26 mg/dL 0.70-1.30 [facility] Comment on above: The validity of the calculated GFR & GFRAA in patients over 70 years has not been determined. Clinical correlation is essential. Serum or plasma urea nitroge n measurement (mass/volume)Ordered By: Arsusan Calle on 07-29-2023 Urea nitrogen [Mass/Vol] 14 mg/dL 7-18 [facility] Thin prep Papanicolaou smear with manual screeningOrdered By: Ar Calle on 07-29-2023 Thin prep Papanicolaou smear with manual screening 5 5-15 [facility] Absolute lymphocyte countOrd ered By: Dr. Castillo on 03-07-2023 Lymphocytes Auto (Unsp spec) [#/Vol] 1.61 10*3/uL 0.83-4.51 [facility] Basophil percentageOrdered B y: Dr. Castillo on 03-07-2023 Basophils/100 WBC (Bld) 0.5 % 0-1 [facility] Bilirubin [Mass/Vol] 0.60 mg/dL 0.20-1.00 [facility] Comment on above: For patients on eltr ombopag therapy, use of Dimension [place] TBIL is not recommended. Chloride [Moles/Vol] 104 mmol/L 98-107 [facility] Eosinophils/100 WBC (Bld) 3.1 % 0-5 [facility] Glucose [Mass/Vol] 347 mg/dL 74-106 [facility] Comment on above: Glucose result great er than or equal to 200 mg/dLsuggests DIABETES MELLITUS per A.D.A. criteria. Neutrophils (Bld) [#/Vol] 5.0 10*3/uL 2.0-7.7 [facility] Neutrophils/100 WBC (Bld) 67.8 % 47-70 [facility] Potassium [Moles/Vol] 3.8 mmol/L 3.5-5.1 [facility] Protein [Mass/Vol] 7.3 g/dL 6.4-8.2 [facility] Sodium [Moles/Vol] 139 mmol/L 136-145 [facility] WBC (Bld) [#/Vol] 7.4 10*3/uL 4.4-11.0 [facility] Blood erythrocytes count (nu mber/volume)Ordered By: Dr. Castillo on 03-07-2023 RBC (Bld) [#/Vol] 5.02 10*6/uL 4.6-6.2 [facility] Blood hemoglobin measurement (mass/volume)Ordered By: Dr. Castillo on 03-07-2023 Hemoglobin (Bld) [Mass/Vol] 14.3 g/dL 13.0-16.5 [facility] Blood lymphocytes/100 leukoc ytesOrdered By: Dr. Castillo on 03-07-2023 Lymphocytes/100 WBC (Bld) 21.8 % 19-41 [facility] Blood monocytes/100 leukocyt esOrdered By: Dr. Castillo on 03-07-2023 Monocytes/100 WBC (Bld) 6.4 % 0-10 [facility] Blood platelet mean volumeOr dered By: Dr. Castillo on 03-07-2023 Platelet mean volume (Bld) [Entitic vol] 9.5 fL 6.2-12.0 [facility] Determination of erythrocyte mean corpuscular volume (MCV)Ordered By: Dr. Castillo on 03-07-2023 MCV (RBC) [Entitic vol] 83.3 fL 80-94 [facility] Direct bilirubinOrdered By: Dr. Castillo on 03-07-2023 Bilirubin.direct [Mass/Vol] 0.12 mg/dL 0.00-0.30 [facility] Glucose Glucometer (dC) [M ass/Vol]Ordered By: Dr. Castillo on 03-07-2023 Glucose [Mass/Vol] 134 mg/dL 74-106 [facility] Comment on above: MANAGEMENT OF PATIEN T CARE PER NURSING PROTOCOL Hematocrit Auto (Bld) [Volum e fraction]Ordered By: Dr. Castillo on 03-07-2023 Hematocrit (Bld) [Volume fraction] 41.8 % 40-54 [facility] Laboratory - Chemistry and C hemistry - challengeOrdered By: Dr. Castillo on 03-07-2023 ALP [Catalytic activity/Vol] 67 U/L 45-117 [facility] ALT [Catalytic activity/Vol] 16 U/L 16-61 [facility] CO2 [Moles/Vol] 27.0 mmol/L 21.0-32.0 [facility] Globulin (S) [Mass/Vol] 3.8 g/dL 2.2-4.2 [facility] Lipase [Catalytic activity/Vol] 12 U/L 13-75 [facility] Comment on above: Please note:LIPASE r evised reference range effective 23. New Lipase methodology. Expected to produce lower values than the previous assay method. NEW Reference Range: 13 - 75 U/L Urea nitrogen/Creatinine [Mass ratio] 12.5 mg/mg 10-20 [facility] Laboratory - Hematology and Cell countsOrdered By: Dr. Castillo on 03-07-2023 Erythrocyte distribution width (RBC) [Entitic vol] 40.3 fL 35.1-43.9 [facility] Erythrocyte distribution width (RBC) [Ratio] 13.3 % 11.6-14.6 [facility] Immature granulocytes/100 WBC (Bld) 0.400 % 0.0-0.9 [facility] Comment on above: IG% - Immature Granu locytes (promyelocytes, myelocytes and metamyelocytes) > 1% indicates that a LEFT SHIFT is Present. MCH (RBC) [Entitic mass] 28.5 pg 27.0-32.0 [facility] Nucleated RBC/100 WBC (Bld) [Ratio] 0 % 0-5 [facility] MCHC Auto (RBC) [Mass/Vol]Or dered By: Dr. Castillo on 03-07-2023 MCHC (RBC) [Mass/Vol] 34.2 g/dL 32-36 [facility] No Panel InformationOrdered By: Dr. Castillo on 03-07-2023 Estimated Creatinine Clearance Calc 85.63 ml/min [facility] Estimated GFR (MDRD) Amer 93 mL/min >60 [facility] Comment on above: GFR Calc Estimated GFR (MDRD) Non-Af Amer 77 mL/min >60 [facility] Comment on above: Non- GFR Calc Ethyl Alcohol Level < 3.0 mg/dL [facility] Comment on above: The serum:whole bloo d ethanol ratio is approximately 1.14and varies slightly with hematocrit. Medical Alcohol reference interval and critical value innon-tolerant individuals; 50 - 100 Impairment 100 Intoxication 100 - 250 Severe Poisoning 250 - 400 Deep/possible fatal coma Platelets bldOrdered By: Dr. Castillo on 03-07-2023 Platelets (Bld) [#/Vol] 214 10*3/uL 150-450 [facility] Serum or plasma albumin yayo urement (mass/volume)Ordered By: Dr. Castillo on 03-07-2023 Albumin [Mass/Vol] 3.5 g/dL 3.2-5.0 [facility] Serum or plasma calcium yayo urement (mass/volume)Ordered By: Dr. Castillo on 03-07-2023 Calcium [Mass/Vol] 8.7 mg/dL 8.5-10.1 [facility] Serum or plasma creatinine m easurement (mass/volume)Ordered By: Dr. Castillo on 03-07-2023 Creatinine [Mass/Vol] 1.04 mg/dL 0.70-1.30 [facility] Comment on above: The validity of the calculated GFR & GFRAA in patients over 70 years has not been determined. Clinical correlation is essential. Serum or plasma urea nitroge n measurement (mass/volume)Ordered By: Dr. Castillo on 03-07-2023 Urea nitrogen [Mass/Vol] 13 mg/dL 7-18 [facility] Thin prep Papanicolaou smear with manual screeningOrdered By: Dr. Castillo on 03-07-2023 Thin prep Papanicolaou smear with manual screening 13 U/L 15-37 [facility] Thin prep Papanicolaou smear with manual screening 8 5-15 [facility] Absolute lymphocyte countOrd ered By: Dr. Chavez on 01-18-2023 Lymphocytes Auto (Unsp spec) [#/Vol] 1.51 10*3/uL 0.83-4.51 [facility] Basophil percentageOrdered B y: Dr. Chavez on 01-18-2023 Basophils/100 WBC (Bld) 0.5 % 0-1 [facility] Bilirubin [Mass/Vol] 0.90 mg/dL 0.20-1.00 [facility] Comment on above: For patients on eltr ombopag therapy, use of Dimension [place] TBIL is not recommended. Chloride [Moles/Vol] 105 mmol/L 98-107 [facility] Eosinophils/100 WBC (Bld) 2.6 % 0-5 [facility] Glucose [Mass/Vol] 182 mg/dL 74-106 [facility] Comment on above: Fasting Glucose resu lt greater than or equal to 126 mg/dL suggests DIABETES MELLITUS per A.D.A. criteria. Neutrophils (Bld) [#/Vol] 6.0 10*3/uL 2.0-7.7 [facility] Neutrophils/100 WBC (Bld) 71.9 % 47-70 [facility] Potassium [Moles/Vol] 3.4 mmol/L 3.5-5.1 [facility] Protein [Mass/Vol] 6.9 g/dL 6.4-8.2 [facility] Sodium [Moles/Vol] 139 mmol/L 136-145 [facility] WBC (Bld) [#/Vol] 8.4 10*3/uL 4.4-11.0 [facility] Blood erythrocytes count (nu mber/volume)Ordered By: Dr. Chavez on 01-18-2023 RBC (Bld) [#/Vol] 5.01 10*6/uL 4.6-6.2 [facility] Blood hemoglobin measurement (mass/volume)Ordered By: Dr. Chavez on 01-18-2023 Hemoglobin (Bld) [Mass/Vol] 14.4 g/dL 13.0-16.5 [facility] Blood lymphocytes/100 leukoc ytesOrdered By: Dr. Chavez on 01-18-2023 Lymphocytes/100 WBC (Bld) 18.0 % 19-41 [facility] Blood monocytes/100 leukocyt esOrdered By: Dr. Chavez on 01-18-2023 Monocytes/100 WBC (Bld) 6.8 % 0-10 [facility] Blood platelet mean volumeOr dered By: Dr. Chavez on 01-18-2023 Platelet mean volume (Bld) [Entitic vol] 8.9 fL 6.2-12.0 [facility] Clostridium difficile detect ion by polymerase chain reactionOrdered By: Bernard Chavez on 01-18-2023 C. difficile DNA IOANA+probe Ql (Unsp spec) [facility] Clostridium difficile detect ion by polymerase chain reactionOrdered By: Dr. Chavez on 01-18-2023 C. difficile DNA IOANA+probe Ql (Unsp spec) [facility] Determination of erythrocyte mean corpuscular volume (MCV)Ordered By: Dr. Chavez on 01-18-2023 MCV (RBC) [Entitic vol] 81.6 fL 80-94 [facility] Hematocrit Auto (Bld) [Volum e fraction]Ordered By: Dr. Chavez on 01-18-2023 Hematocrit (Bld) [Volume fraction] 40.9 % 40-54 [facility] Laboratory - Chemistry and C hemistry - challengeOrdered By: Dr. Chavez on 01-18-2023 ALP [Catalytic activity/Vol] 64 U/L 45-117 [facility] ALT [Catalytic activity/Vol] 14 U/L 16-61 [facility] CO2 [Moles/Vol] 28.0 mmol/L 21.0-32.0 [facility] Globulin (S) [Mass/Vol] 3.2 g/dL 2.2-4.2 [facility] Urea nitrogen/Creatinine [Mass ratio] 11.7 mg/mg 10-20 [facility] Laboratory - Hematology and Cell countsOrdered By: Dr. Chavez on 01-18-2023 Erythrocyte distribution width (RBC) [Entitic vol] 39.6 fL 35.1-43.9 [facility] Erythrocyte distribution width (RBC) [Ratio] 13.4 % 11.6-14.6 [facility] Immature granulocytes/100 WBC (Bld) 0.200 % 0.0-0.9 [facility] Comment on above: IG% - Immature Granu locytes (promyelocytes, myelocytes and metamyelocytes) > 1% indicates that a LEFT SHIFT is Present. MCH (RBC) [Entitic mass] 28.7 pg 27.0-32.0 [facility] Nucleated RBC/100 WBC (Bld) [Ratio] 0 % 0-5 [facility] MCHC Auto (RBC) [Mass/Vol]Or dered By: Dr. Chavez on 01-18-2023 MCHC (RBC) [Mass/Vol] 35.2 g/dL 32-36 [facility] No Panel InformationOrdered By: Dr. Chavez on 01-18-2023 Estimated Creatinine Clearance Calc 102.69 ml/min [facility] Estimated GFR (MDRD) Amer 105 mL/min >60 [facility] Comment on above: GFR Calc Estimated GFR (MDRD) Non-Af Amer 86 mL/min >60 [facility] Comment on above: Non- GFR Calc Platelets bldOrdered By: Dr. Chavez on 01-18-2023 Platelets (Bld) [#/Vol] 199 10*3/uL 150-450 [facility] Serum or plasma albumin yayo urement (mass/volume)Ordered By: Dr. Chavez on 01-18-2023 Albumin [Mass/Vol] 3.7 g/dL 3.2-5.0 [facility] Serum or plasma albumin/glob ulin mass ratioOrdered By: Dr. Chavez on 01-18-2023 Albumin/Globulin [Mass ratio] 1.2 {ratio} 0.9-2.4 [facility] Serum or plasma calcium yayo urement (mass/volume)Ordered By: Dr. Chavez on 01-18-2023 Calcium [Mass/Vol] 8.3 mg/dL 8.5-10.1 [facility] Serum or plasma creatinine m easurement (mass/volume)Ordered By: Dr. Chavez on 01-18-2023 Creatinine [Mass/Vol] 0.94 mg/dL 0.70-1.30 [facility] Comment on above: The validity of the calculated GFR & GFRAA in patients over 70 years has not been determined. Clinical correlation is essential. Serum or plasma urea nitroge n measurement (mass/volume)Ordered By: Dr. Chavez on 01-18-2023 Urea nitrogen [Mass/Vol] 11 mg/dL 7-18 [facility] Stool lactoferrin detection by immunoassayOrdered By: Bernard Chavez on 01-18-2023 Lactoferrin IA Ql (Stl) [facility] Stool lactoferrin detection by immunoassayOrdered By: Dr. Chavez on 01-18-2023 Lactoferrin IA Ql (Stl) [facility] Thin prep Papanicolaou smear with manual screeningOrdered By: Dr. Chavez on 01-18-2023 Thin prep Papanicolaou smear with manual screening 10 U/L 15-37 [facility] Thin prep Papanicolaou smear with manual screening 6 5-15 [facility] Laboratory - Chemistry and C hemistry - challengeOrdered By: Dr. Chavez on 12-15-2022 Free T4 [Mass/Vol] 0.76 ng/dL 0.76-1.46 [facility] No Panel InformationOrdered By: Dr. Chavez on 12-15-2022 Thyroid Stimulating Hormone (TSH) 9.17 uIU/mL 0.358-3.74 [facility] Absolute lymphocyte countOrd ered By: Dr. Wu on 12-11-2022 Lymphocytes Auto (Unsp spec) [#/Vol] 1.53 10*3/uL 0.83-4.51 [facility] Basophil percentageOrdered B y: Dr. Wu on 12-11-2022 Basophil percentage 0 SEEN /hpf 0-5 [facility] Basophils/100 WBC (Bld) 0.6 % 0-1 [facility] Bilirubin [Mass/Vol] 0.60 mg/dL 0.20-1.00 [facility] Comment on above: For patients on eltr ombopag therapy, use of Dimension [place] TBIL is not recommended. Chloride [Moles/Vol] 104 mmol/L 98-107 [facility] Eosinophils/100 WBC (Bld) 3.4 % 0-5 [facility] Glucose [Mass/Vol] 337 mg/dL 74-106 [facility] Comment on above: Glucose result great er than or equal to 200 mg/dLsuggests DIABETES MELLITUS per A.D.A. criteria. Neutrophils (Bld) [#/Vol] 4.6 10*3/uL 2.0-7.7 [facility] Neutrophils/100 WBC (Bld) 67.1 % 47-70 [facility] Potassium [Moles/Vol] 3.4 mmol/L 3.5-5.1 [facility] Protein [Mass/Vol] 6.7 g/dL 6.4-8.2 [facility] Sodium [Moles/Vol] 139 mmol/L 136-145 [facility] WBC (Bld) [#/Vol] 6.8 10*3/uL 4.4-11.0 [facility] Bilirubin Test strip Ql (U)O rdered By: Dr. Wu on 12-11-2022 Bilirubin Ql (U) Negative Negative [facility] Blood erythrocytes count (nu mber/volume)Ordered By: Dr. Wu on 12-11-2022 RBC (Bld) [#/Vol] 5.09 10*6/uL 4.6-6.2 [facility] Blood hemoglobin measurement (mass/volume)Ordered By: Dr. Wu on 12-11-2022 Hemoglobin (Bld) [Mass/Vol] 14.4 g/dL 13.0-16.5 [facility] Blood lymphocytes/100 leukoc ytesOrdered By: Dr. Wu on 12-11-2022 Lymphocytes/100 WBC (Bld) 22.4 % 19-41 [facility] Blood monocytes/100 leukocyt esOrdered By: Dr. Wu on 12-11-2022 Monocytes/100 WBC (Bld) 6.1 % 0-10 [facility] Blood platelet mean volumeOr dered By: Dr. Wu on 12-11-2022 Platelet mean volume (Bld) [Entitic vol] 9.5 fL 6.2-12.0 [facility] Determination of erythrocyte mean corpuscular volume (MCV)Ordered By: Dr. Wu on 12-11-2022 MCV (RBC) [Entitic vol] 82.3 fL 80-94 [facility] Glucose Glucometer (BldC) [M ass/Vol]Ordered By: Dr. Wu on 12-11-2022 Glucose [Mass/Vol] 272 mg/dL 74-106 [facility] Comment on above: MANAGEMENT OF PATIEN T CARE PER NURSING PROTOCOL Hematocrit Auto (Bld) [Volum e fraction]Ordered By: Dr. Wu on 12-11-2022 Hematocrit (Bld) [Volume fraction] 41.9 % 40-54 [facility] Influenza virus A and B and SARS-CoV-2 (COVID-19) Ag panel - Upper respiratory specimOrdered By: Dr. Wu on 12-11-2022 SARS-CoV-2 (COVID-19) RNA IOANA+probe Ql (Resp) [facility] Ketones Test strip Ql (U)Ord ered By: Dr. Wu on 12-11-2022 Ketones Ql (U) 5 mg/dl Negative [facility] Laboratory - Chemistry and C hemistry - challengeOrdered By: Dr. Wu on 12-11-2022 ALP [Catalytic activity/Vol] 72 U/L 45-117 [facility] ALT [Catalytic activity/Vol] 12 U/L 16-61 [facility] CO2 [Moles/Vol] 28.0 mmol/L 21.0-32.0 [facility] Globulin (S) [Mass/Vol] 3.2 g/dL 2.2-4.2 [facility] Urea nitrogen/Creatinine [Mass ratio] 8.6 mg/mg 10-20 [facility] Laboratory - Drug toxicology Ordered By: Dr. Wu on 12-11-2022 Amphetamines Ql (U) Negative <1000 ng/mL [facility] Benzodiazepines Ql (U) Negative < 200 ng/mL [facility] Cannabinoids Screen Ql (U) Negative < 50 ng/mL [facility] Cocaine Ql (U) Negative < 300 ng/mL [facility] Opiates Ql (U) Negative < 300 ng/mL [facility] Laboratory - Hematology and Cell countsOrdered By: Dr. Wu on 12-11-2022 Erythrocyte distribution width (RBC) [Entitic vol] 38.8 fL 35.1-43.9 [facility] Erythrocyte distribution width (RBC) [Ratio] 13.2 % 11.6-14.6 [facility] Immature granulocytes/100 WBC (Bld) 0.400 % 0.0-0.9 [facility] Comment on above: IG% - Immature Granu locytes (promyelocytes, myelocytes and metamyelocytes) > 1% indicates that a LEFT SHIFT is Present. MCH (RBC) [Entitic mass] 28.3 pg 27.0-32.0 [facility] Nucleated RBC/100 WBC (Bld) [Ratio] 0 % 0-5 [facility] MCHC Auto (RBC) [Mass/Vol]Or dered By: Dr. Wu on 12-11-2022 MCHC (RBC) [Mass/Vol] 34.4 g/dL 32-36 [facility] Mucus LM Ql (Urine sed)Order ed By: Dr. Wu on 12-11-2022 Mucus Ql (Urine sed) RARE /hpf [facility] Nitrite Test strip Ql (U)Ord ered By: Dr. Wu on 12-11-2022 Nitrite Ql (U) Negative Negative [facility] No Panel InformationOrdered By: Dr. Wu on 12-11-2022 MDMA (Ecstasy) Screen Negative < 500 ng/mL [facility] Urine Barbiturates Screen Negative < 200 ng/mL [facility] Urine Drug Screen Comment [facility] Comment on above: CONFIRMATORY TESTING FOR [...] Methadone Screen Negative < 300 ng/mL [facility] Estimated Creatinine Clearance Calc 103.79 ml/min [facility] Estimated GFR (MDRD) Amer 105 mL/min >60 [facility] Comment on above: GFR Calc Estimated GFR (MDRD) Non-Af Amer 87 mL/min >60 [facility] Comment on above: Non- GFR Calc Ethyl Alcohol Level < 3.0 mg/dL [facility] Comment on above: The serum:whole bloo d ethanol ratio is approximately 1.14and varies slightly with hematocrit. Medical Alcohol reference interval and critical value innon-tolerant individuals; 50 - 100 Impairment 100 Intoxication 100 - 250 Severe Poisoning 250 - 400 Deep/possible fatal coma Troponin I High Sensitivity 6 pg/mL 3.0-78.0 [facility] Comment on above: Please Note: New Kira t Units and Gender Specific Reference Ranges. For more information see Policy Stat Procedure [place] High Sensitivity Troponin (TNIH) and attachments. Platelets bldOrdered By: Dr. Wu on 12-11-2022 Platelets (Bld) [#/Vol] 202 10*3/uL 150-450 [facility] Protein Test strip Ql (U)Ord ered By: Dr. Wu on 12-11-2022 Protein Ql (U) 15 mg/dl Negative [facility] Serum or plasma albumin yayo urement (mass/volume)Ordered By: Dr. Wu on 12-11-2022 Albumin [Mass/Vol] 3.5 g/dL 3.2-5.0 [facility] Serum or plasma albumin/glob ulin mass ratioOrdered By: Dr. Wu on 12-11-2022 Albumin/Globulin [Mass ratio] 1.1 {ratio} 0.9-2.4 [facility] Serum or plasma calcium yayo urement (mass/volume)Ordered By: Dr. Wu on 12-11-2022 Calcium [Mass/Vol] 8.6 mg/dL 8.5-10.1 [facility] Serum or plasma creatinine m easurement (mass/volume)Ordered By: Dr. Wu on 12-11-2022 Creatinine [Mass/Vol] 0.93 mg/dL 0.70-1.30 [facility] Comment on above: The validity of the calculated GFR & GFRAA in patients over 70 years has not been determined. Clinical correlation is essential. Serum or plasma urea nitroge n measurement (mass/volume)Ordered By: Dr. Wu on 12-11-2022 Urea nitrogen [Mass/Vol] 8 mg/dL 7-18 [facility] Squamous epithelial cells de tection in urine sediment by light microscopyOrdered By: Dr. Wu on 12-11-2022 Epithelial cells.squamous LM Ql (Urine sed) 0 SEEN /hpf 0-5 [facility] Thin prep Papanicolaou smear with manual screeningOrdered By: Dr. Wu on 12-11-2022 Thin prep Papanicolaou smear with manual screening 5 U/L 15-37 [facility] Thin prep Papanicolaou smear with manual screening 7 5-15 [facility] Urine blood detectionOrdered By: Dr. Wu on 12-11-2022 RBC Ql (U) Negative Negative [facility] RBC Ql (U) 0 SEEN /hpf 0-5 [facility] Urine clarityOrdered By: Dr. Wu on 12-11-2022 Clarity (U) Clear Clear [facility] Urine color determinationOrd ered By: Dr. Wu on 12-11-2022 Color (U) Yellow Yellow [facility] Urine glucose detectionOrder ed By: Dr. Wu on 12-11-2022 Glucose Ql (U) 1000 mg/dl Normal [facility] Urine leukocyte esterase det ection by dipstickOrdered By: Dr. Wu on 12-11-2022 Leukocyte esterase Test strip Ql (U) Negative Negative [facility] Urine pHOrdered By: Dr. Humza ya on 02-11-2023 pH (U) 6.0 [pH] 5.0 - 8.0 [facility] Urine phencyclidine (PCP) de tectionOrdered By: Dr. Wu on 12-11-2022 Phencyclidine Ql (U) Negative < 25 ng/mL [facility] Urine sediment bacteria coun t by microscopy (number/high power field)Ordered By: Dr. Wu on 12-11-2022 Bacteria LM.HPF (Urine sed) [#/Area] 0 /[HPF] None Seen [facility] Urine specific gravity measu rementOrdered By: Dr. Wu on 12-11-2022 Specific gravity (U) [Rel density] 1.015 1.002-1.030 [facility] Urobilinogen Auto test strip Ql (U)Ordered By: Dr. Wu on 12-11-2022 Urobilinogen Ql (U) Normal mg/dl Normal [facility] Absolute lymphocyte countOrd ered By: Dr. Castillo on 12-10-2022 Lymphocytes Auto (Unsp spec) [#/Vol] 1.79 10*3/uL 0.83-4.51 [facility] Basophil percentageOrdered B y: Dr. Castillo on 12-10-2022 Basophil percentage 0 SEEN /hpf 0-5 [facility] Basophils/100 WBC (Bld) 0.5 % 0-1 [facility] Chloride [Moles/Vol] 106 mmol/L 98-107 [facility] Eosinophils/100 WBC (Bld) 3.3 % 0-5 [facility] Glucose [Mass/Vol] 250 mg/dL 74-106 [facility] Comment on above: Glucose result great er than or equal to 200 mg/dLsuggests DIABETES MELLITUS per A.D.A. criteria. Neutrophils (Bld) [#/Vol] 5.0 10*3/uL 2.0-7.7 [facility] Neutrophils/100 WBC (Bld) 64.8 % 47-70 [facility] Potassium [Moles/Vol] 3.7 mmol/L 3.5-5.1 [facility] Sodium [Moles/Vol] 141 mmol/L 136-145 [facility] WBC (Bld) [#/Vol] 7.7 10*3/uL 4.4-11.0 [facility] Bilirubin Test strip Ql (U)O rdered By: Dr. Castillo on 12-10-2022 Bilirubin Ql (U) Negative Negative [facility] Blood erythrocytes count (nu mber/volume)Ordered By: Dr. Castillo on 12-10-2022 RBC (Bld) [#/Vol] 5.31 10*6/uL 4.6-6.2 [facility] Blood hemoglobin measurement (mass/volume)Ordered By: Dr. Castillo on 12-10-2022 Hemoglobin (Bld) [Mass/Vol] 15.1 g/dL 13.0-16.5 [facility] Blood lymphocytes/100 leukoc ytesOrdered By: Dr. Castillo on 12-10-2022 Lymphocytes/100 WBC (Bld) 23.4 % 19-41 [facility] Blood monocytes/100 leukocyt esOrdered By: Dr. Castillo on 12-10-2022 Monocytes/100 WBC (Bld) 7.3 % 0-10 [facility] Blood platelet mean volumeOr dered By: Dr. Castillo on 12-10-2022 Platelet mean volume (Bld) [Entitic vol] 9.3 fL 6.2-12.0 [facility] Determination of erythrocyte mean corpuscular volume (MCV)Ordered By: Dr. Castillo on 12-10-2022 MCV (RBC) [Entitic vol] 81.7 fL 80-94 [facility] Glucose Glucometer (BldC) [M ass/Vol]Ordered By: Dr. Castillo on 12-10-2022 Glucose [Mass/Vol] 261 mg/dL 74-106 [facility] Comment on above: MANAGEMENT OF PATIEN T CARE PER NURSING PROTOCOL Hematocrit Auto (Bld) [Volum e fraction]Ordered By: Dr. Castillo on 12-10-2022 Hematocrit (Bld) [Volume fraction] 43.4 % 40-54 [facility] Ketones Test strip Ql (U)Ord ered By: Dr. Castillo on 12-10-2022 Ketones Ql (U) Negative Negative [facility] Laboratory - Chemistry and C hemistry - challengeOrdered By: Dr. Castillo on 12-10-2022 CO2 [Moles/Vol] 30.0 mmol/L 21.0-32.0 [facility] Urea nitrogen/Creatinine [Mass ratio] 9.8 mg/mg 10-20 [facility] Laboratory - Hematology and Cell countsOrdered By: Dr. Castillo on 12-10-2022 Erythrocyte distribution width (RBC) [Entitic vol] 39.1 fL 35.1-43.9 [facility] Erythrocyte distribution width (RBC) [Ratio] 13.3 % 11.6-14.6 [facility] Immature granulocytes/100 WBC (Bld) 0.700 % 0.0-0.9 [facility] Comment on above: IG% - Immature Granu locytes (promyelocytes, myelocytes and metamyelocytes) > 1% indicates that a LEFT SHIFT is Present. MCH (RBC) [Entitic mass] 28.4 pg 27.0-32.0 [facility] Nucleated RBC/100 WBC (Bld) [Ratio] 0 % 0-5 [facility] MCHC Auto (RBC) [Mass/Vol]Or dered By: Dr. Castillo on 12-10-2022 MCHC (RBC) [Mass/Vol] 34.8 g/dL 32-36 [facility] Mucus LM Ql (Urine sed)Order ed By: Dr. Castillo on 12-10-2022 Mucus Ql (Urine sed) 0 SEEN /hpf [facility] Nitrite Test strip Ql (U)Ord ered By: Dr. Castillo on 12-10-2022 Nitrite Ql (U) Negative Negative [facility] No Panel InformationOrdered By: Dr. Castillo on 12-10-2022 Estimated Creatinine Clearance Calc 94.63 ml/min [facility] Estimated GFR (MDRD) Amer 95 mL/min >60 [facility] Comment on above: GFR Calc Estimated GFR (MDRD) Non-Af Amer 79 mL/min >60 [facility] Comment on above: Non- GFR Calc Platelets bldOrdered By: Dr. Castillo on 12-10-2022 Platelets (Bld) [#/Vol] 251 10*3/uL 150-450 [facility] Protein Test strip Ql (U)Ord ered By: Dr. Castillo on 12-10-2022 Protein Ql (U) 15 mg/dl Negative [facility] Serum or plasma calcium yayo urement (mass/volume)Ordered By: Dr. Castillo on 12-10-2022 Calcium [Mass/Vol] 9.3 mg/dL 8.5-10.1 [facility] Serum or plasma creatinine m easurement (mass/volume)Ordered By: Dr. Castillo on 12-10-2022 Creatinine [Mass/Vol] 1.02 mg/dL 0.70-1.30 [facility] Comment on above: The validity of the calculated GFR & GFRAA in patients over 70 years has not been determined. Clinical correlation is essential. Serum or plasma urea nitroge n measurement (mass/volume)Ordered By: Dr. Castillo on 12-10-2022 Urea nitrogen [Mass/Vol] 10 mg/dL 7-18 [facility] Squamous epithelial cells de tection in urine sediment by light microscopyOrdered By: Dr. Castillo on 12-10-2022 Epithelial cells.squamous LM Ql (Urine sed) 0-5 SEEN /hpf 0-5 [facility] Thin prep Papanicolaou smear with manual screeningOrdered By: Dr. Castillo on 12-10-2022 Thin prep Papanicolaou smear with manual screening 5 5-15 [facility] Urine blood detectionOrdered By: Dr. Castillo on 12-10-2022 RBC Ql (U) Negative Negative [facility] RBC Ql (U) 0 SEEN /hpf 0-5 [facility] Urine clarityOrdered By: Dr. Castillo on 12-10-2022 Clarity (U) Sl. Cloudy Clear [facility] Urine color determinationOrd ered By: Dr. Castillo on 12-10-2022 Color (U) Yellow Yellow [facility] Urine glucose detectionOrder ed By: Dr. Castillo on 12-10-2022 Glucose Ql (U) 1000 mg/dl Normal [facility] Urine leukocyte esterase det ection by dipstickOrdered By: Dr. Castillo on 12-10-2022 Leukocyte esterase Test strip Ql (U) Negative Negative [facility] Urine pHOrdered By: Dr. Castillo o n 12-10-2022 pH (U) 6.0 [pH] 5.0 - 8.0 [facility] Urine sediment bacteria coun t by microscopy (number/high power field)Ordered By: Dr. Castillo on 12-10-2022 Bacteria LM.HPF (Urine sed) [#/Area] 0 /[HPF] None Seen [facility] Urine specific gravity measu rementOrdered By: Dr. Castillo on 12-10-2022 Specific gravity (U) [Rel density] 1.015 1.002-1.030 [facility] Urobilinogen Auto test strip Ql (U)Ordered By: Dr. Castillo on 12-10-2022 Urobilinogen Ql (U) Normal mg/dl Normal [facility] Basophil percentageOrdered B y: Dr. Calle on 11-25-2022 Chloride [Moles/Vol] 102 mmol/L 98-107 [facility] Glucose [Mass/Vol] 429 mg/dL 74-106 [facility] Comment on above: Glucose result great er than or equal to 200 mg/dLsuggests DIABETES MELLITUS per A.D.A. criteria. Potassium [Moles/Vol] 4.0 mmol/L 3.5-5.1 [facility] Sodium [Moles/Vol] 136 mmol/L 136-145 [facility] Glucose Glucometer (BldC) [M ass/Vol]Ordered By: Dr. Calle on 11-25-2022 Glucose [Mass/Vol] 380 mg/dL 74-106 [facility] Comment on above: MANAGEMENT OF PATIEN T CARE PER NURSING PROTOCOL Laboratory - Chemistry and C hemistry - challengeOrdered By: Dr. Calle on 11-25-2022 CO2 [Moles/Vol] 28.0 mmol/L 21.0-32.0 [facility] Urea nitrogen/Creatinine [Mass ratio] 11.3 mg/mg 10-20 [facility] No Panel InformationOrdered By: Dr. Calle on 11-25-2022 Estimated Creatinine Clearance Calc 99.51 ml/min [facility] Estimated GFR (MDRD) Amer 101 mL/min >60 [facility] Comment on above: GFR Calc Estimated GFR (MDRD) Non-Af Amer 83 mL/min >60 [facility] Comment on above: Non- GFR Calc Serum or plasma calcium yayo urement (mass/volume)Ordered By: Dr. Calle on 11-25-2022 Calcium [Mass/Vol] 9.0 mg/dL 8.5-10.1 [facility] Serum or plasma creatinine m easurement (mass/volume)Ordered By: Dr. Calle on 11-25-2022 Creatinine [Mass/Vol] 0.97 mg/dL 0.70-1.30 [facility] Comment on above: The validity of the calculated GFR & GFRAA in patients over 70 years has not been determined. Clinical correlation is essential. Serum or plasma urea nitroge n measurement (mass/volume)Ordered By: Dr. Calle on 11-25-2022 Urea nitrogen [Mass/Vol] 11 mg/dL 7-18 [facility] Thin prep Papanicolaou smear with manual screeningOrdered By: Dr. Calle on 11-25-2022 Thin prep Papanicolaou smear with manual screening 6 5-15 [facility] Influenza virus A and B and SARS-CoV-2 (COVID-19) Ag panel - Upper respiratory specimOrdered By: Johann Lemons on 10-30-2022 SARS-CoV-2 (COVID-19) RNA IOANA+probe Ql (Resp) [facility] Absolute lymphocyte countOrd ered By: ED PROVIDER on 10-29-2022 Lymphocytes Auto (Unsp spec) [#/Vol] 1.87 10*3/uL 0.83-4.51 [facility] Basophil percentageOrdered B y: ED PROVIDER on 10-29-2022 Basophils/100 WBC (Bld) 0.3 % 0-1 [facility] Chloride [Moles/Vol] 104 mmol/L 98-107 [facility] Eosinophils/100 WBC (Bld) 2.0 % 0-5 [facility] Glucose [Mass/Vol] 361 mg/dL 74-106 [facility] Comment on above: Glucose result great er than or equal to 200 mg/dLsuggests DIABETES MELLITUS per A.D.A. criteria. Neutrophils (Bld) [#/Vol] 8.6 10*3/uL 2.0-7.7 [facility] Neutrophils/100 WBC (Bld) 75.0 % 47-70 [facility] Potassium [Moles/Vol] 4.0 mmol/L 3.5-5.1 [facility] Sodium [Moles/Vol] 136 mmol/L 136-145 [facility] WBC (Bld) [#/Vol] 11.5 10*3/uL 4.4-11.0 [facility] Blood erythrocytes count (nu mber/volume)Ordered By: ED PROVIDER on 10-29-2022 RBC (Bld) [#/Vol] 5.15 10*6/uL 4.6-6.2 [facility] Blood hemoglobin measurement (mass/volume)Ordered By: ED PROVIDER on 10-29-2022 Hemoglobin (Bld) [Mass/Vol] 14.8 g/dL 13.0-16.5 [facility] Blood lymphocytes/100 leukoc ytesOrdered By: ED PROVIDER on 10-29-2022 Lymphocytes/100 WBC (Bld) 16.2 % 19-41 [facility] Blood monocytes/100 leukocyt esOrdered By: ED PROVIDER on 10-29-2022 Monocytes/100 WBC (Bld) 6.2 % 0-10 [facility] Blood platelet mean volumeOr dered By: ED PROVIDER on 10-29-2022 Platelet mean volume (Bld) [Entitic vol] 9.5 fL 6.2-12.0 [facility] Determination of erythrocyte mean corpuscular volume (MCV)Ordered By: ED PROVIDER on 10-29-2022 MCV (RBC) [Entitic vol] 81.9 fL 80-94 [facility] Hematocrit Auto (Bld) [Volum e fraction]Ordered By: ED PROVIDER on 10-29-2022 Hematocrit (Bld) [Volume fraction] 42.2 % 40-54 [facility] Laboratory - Chemistry and C hemistry - challengeOrdered By: ED PROVIDER on 10-29-2022 CO2 [Moles/Vol] 26.0 mmol/L 21.0-32.0 [facility] Urea nitrogen/Creatinine [Mass ratio] 14.8 mg/mg 10-20 [facility] Laboratory - Chemistry and C hemistry - challengeOrdered By: Johann Lemons on 10-29-2022 Magnesium [Mass/Vol] 1.7 mg/dL 1.6-2.6 [facility] Laboratory - Hematology and Cell countsOrdered By: ED PROVIDER on 10-29-2022 Erythrocyte distribution width (RBC) [Entitic vol] 38.6 fL 35.1-43.9 [facility] Erythrocyte distribution width (RBC) [Ratio] 13.1 % 11.6-14.6 [facility] Immature granulocytes/100 WBC (Bld) 0.300 % 0.0-0.9 [facility] Comment on above: IG% - Immature Granu locytes (promyelocytes, myelocytes and metamyelocytes) > 1% indicates that a LEFT SHIFT is Present. MCH (RBC) [Entitic mass] 28.7 pg 27.0-32.0 [facility] Nucleated RBC/100 WBC (Bld) [Ratio] 0 % 0-5 [facility] MCHC Auto (RBC) [Mass/Vol]Or dered By: ED PROVIDER on 10-29-2022 MCHC (RBC) [Mass/Vol] 35.1 g/dL 32-36 [facility] No Panel InformationOrdered By: ED PROVIDER on 10-29-2022 Estimated Creatinine Clearance Calc 83.93 ml/min [facility] Estimated GFR (MDRD) Amer 83 mL/min >60 [facility] Comment on above: GFR Calc Estimated GFR (MDRD) Non-Af Amer 68 mL/min >60 [facility] Comment on above: Non- GFR Calc Platelets bldOrdered By: ED PROVIDER on 10-29-2022 Platelets (Bld) [#/Vol] 224 10*3/uL 150-450 [facility] Serum or plasma calcium yayo urement (mass/volume)Ordered By: ED PROVIDER on 10-29-2022 Calcium [Mass/Vol] 8.9 mg/dL 8.5-10.1 [facility] Serum or plasma creatinine m easurement (mass/volume)Ordered By: ED PROVIDER on 10-29-2022 Creatinine [Mass/Vol] 1.15 mg/dL 0.70-1.30 [facility] Comment on above: The validity of the calculated GFR & GFRAA in patients over 70 years has not been determined. Clinical correlation is essential. Serum or plasma urea nitroge n measurement (mass/volume)Ordered By: ED PROVIDER on 10-29-2022 Urea nitrogen [Mass/Vol] 17 mg/dL 7-18 [facility] Thin prep Papanicolaou smear with manual screeningOrdered By: ED PROVIDER on 10-29-2022 Thin prep Papanicolaou smear with manual screening 6 5-15 [facility] Absolute lymphocyte countOrd ered By: Dr. Wu on 09-18-2022 Lymphocytes Auto (Unsp spec) [#/Vol] 1.62 10*3/uL 0.83-4.51 [facility] Basophil percentageOrdered B y: Dr. Wu on 09-18-2022 Basophils/100 WBC (Bld) 0.5 % 0-1 [facility] Bilirubin [Mass/Vol] 0.50 mg/dL 0.20-1.00 [facility] Comment on above: For patients on eltr ombopag therapy, use of Dimension [place] TBIL is not recommended. Chloride [Moles/Vol] 106 mmol/L 98-107 [facility] Eosinophils/100 WBC (Bld) 3.5 % 0-5 [facility] Glucose [Mass/Vol] 262 mg/dL 74-106 [facility] Comment on above: Glucose result great er than or equal to 200 mg/dLsuggests DIABETES MELLITUS per A.D.A. criteria. Neutrophils (Bld) [#/Vol] 5.4 10*3/uL 2.0-7.7 [facility] Neutrophils/100 WBC (Bld) 68.0 % 47-70 [facility] Potassium [Moles/Vol] 3.7 mmol/L 3.5-5.1 [facility] Protein [Mass/Vol] 7.1 g/dL 6.4-8.2 [facility] Sodium [Moles/Vol] 137 mmol/L 136-145 [facility] WBC (Bld) [#/Vol] 7.9 10*3/uL 4.4-11.0 [facility] Blood erythrocytes count (nu mber/volume)Ordered By: Dr. uW on 09-18-2022 RBC (Bld) [#/Vol] 4.87 10*6/uL 4.6-6.2 [facility] Blood hemoglobin measurement (mass/volume)Ordered By: Dr. Wu on 09-18-2022 Hemoglobin (Bld) [Mass/Vol] 14.6 g/dL 13.0-16.5 [facility] Blood lymphocytes/100 leukoc ytesOrdered By: Dr. Wu on 09-18-2022 Lymphocytes/100 WBC (Bld) 20.4 % 19-41 [facility] Blood monocytes/100 leukocyt esOrdered By: Dr. Wu on 09-18-2022 Monocytes/100 WBC (Bld) 7.2 % 0-10 [facility] Blood platelet mean volumeOr dered By: Dr. Wu on 09-18-2022 Platelet mean volume (Bld) [Entitic vol] 9.1 fL 6.2-12.0 [facility] Determination of erythrocyte mean corpuscular volume (MCV)Ordered By: Dr. Wu on 09-18-2022 MCV (RBC) [Entitic vol] 83.2 fL 80-94 [facility] Hematocrit Auto (Bld) [Volum e fraction]Ordered By: Dr. Wu on 09-18-2022 Hematocrit (Bld) [Volume fraction] 40.5 % 40-54 [facility] Laboratory - Chemistry and C hemistry - challengeOrdered By: Dr. Wu on 09-18-2022 ALP [Catalytic activity/Vol] 75 U/L 45-117 [facility] ALT [Catalytic activity/Vol] 16 U/L 16-61 [facility] CO2 [Moles/Vol] 24.0 mmol/L 21.0-32.0 [facility] Globulin (S) [Mass/Vol] 3.5 g/dL 2.2-4.2 [facility] Lipase [Catalytic activity/Vol] 64 U/L 73-393 [facility] Urea nitrogen/Creatinine [Mass ratio] 16.3 mg/mg 10-20 [facility] Laboratory - Hematology and Cell countsOrdered By: Dr. Wu on 09-18-2022 Erythrocyte distribution width (RBC) [Entitic vol] 39.2 fL 35.1-43.9 [facility] Erythrocyte distribution width (RBC) [Ratio] 13.1 % 11.6-14.6 [facility] Immature granulocytes/100 WBC (Bld) 0.400 % 0.0-0.9 [facility] Comment on above: IG% - Immature Granu locytes (promyelocytes, myelocytes and metamyelocytes) > 1% indicates that a LEFT SHIFT is Present. MCH (RBC) [Entitic mass] 30.0 pg 27.0-32.0 [facility] Nucleated RBC/100 WBC (Bld) [Ratio] 0 % 0-5 [facility] MCHC Auto (RBC) [Mass/Vol]Or dered By: Dr. Wu on 09-18-2022 MCHC (RBC) [Mass/Vol] 36.0 g/dL 32-36 [facility] No Panel InformationOrdered By: Dr. Wu on 09-18-2022 Estimated Creatinine Clearance Calc 98.49 ml/min [facility] Estimated GFR (MDRD) Amer 100 mL/min >60 [facility] Comment on above: GFR Calc Estimated GFR (MDRD) Non-Af Amer 82 mL/min >60 [facility] Comment on above: Non- GFR Calc Ethyl Alcohol Level < 3.0 mg/dL [facility] Comment on above: The serum:whole bloo d ethanol ratio is approximately 1.14and varies slightly with hematocrit. Medical Alcohol reference interval and critical value innon-tolerant individuals; 50 - 100 Impairment 100 Intoxication 100 - 250 Severe Poisoning 250 - 400 Deep/possible fatal coma Platelets bldOrdered By: Dr. Wu on 09-18-2022 Platelets (Bld) [#/Vol] 188 10*3/uL 150-450 [facility] Serum or plasma albumin yayo urement (mass/volume)Ordered By: Dr. uW on 09-18-2022 Albumin [Mass/Vol] 3.6 g/dL 3.2-5.0 [facility] Serum or plasma albumin/glob ulin mass ratioOrdered By: Dr. Wu on 09-18-2022 Albumin/Globulin [Mass ratio] 1.0 {ratio} 0.9-2.4 [facility] Serum or plasma calcium yayo urement (mass/volume)Ordered By: Dr. Wu on 09-18-2022 Calcium [Mass/Vol] 9.1 mg/dL 8.5-10.1 [facility] Serum or plasma creatinine m easurement (mass/volume)Ordered By: Dr. Wu on 09-18-2022 Creatinine [Mass/Vol] 0.98 mg/dL 0.70-1.30 [facility] Comment on above: The validity of the calculated GFR & GFRAA in patients over 70 years has not been determined. Clinical correlation is essential. Serum or plasma urea nitroge n measurement (mass/volume)Ordered By: Dr. Wu on 09-18-2022 Urea nitrogen [Mass/Vol] 16 mg/dL 7-18 [facility] Thin prep Papanicolaou smear with manual screeningOrdered By: Dr. Wu on 09-18-2022 Thin prep Papanicolaou smear with manual screening 9 U/L 15-37 [facility] Thin prep Papanicolaou smear with manual screening 7 5-15 [facility] Absolute lymphocyte countOrd ered By: Dr. Mathew on 08-07-2022 Lymphocytes Auto (Unsp spec) [#/Vol] 1.92 10*3/uL 0.83-4.51 [facility] Basophil percentageOrdered B y: Dr. Mathew on 08-07-2022 Basophil percentage 0 SEEN /hpf 0-5 [facility] Basophils/100 WBC (Bld) 0.3 % 0-1 [facility] Bilirubin [Mass/Vol] 0.40 mg/dL 0.20-1.00 [facility] Comment on above: For patients on eltr ombopag therapy, use of Dimension [place] TBIL is not recommended. Chloride [Moles/Vol] 108 mmol/L 98-107 [facility] Eosinophils/100 WBC (Bld) 3.1 % 0-5 [facility] Glucose [Mass/Vol] 194 mg/dL 74-106 [facility] Comment on above: Fasting Glucose resu lt greater than or equal to 126 mg/dL suggests DIABETES MELLITUS per A.D.A. criteria. Neutrophils (Bld) [#/Vol] 6.2 10*3/uL 2.0-7.7 [facility] Neutrophils/100 WBC (Bld) 68.4 % 47-70 [facility] Potassium [Moles/Vol] 3.6 mmol/L 3.5-5.1 [facility] Protein [Mass/Vol] 7.5 g/dL 6.4-8.2 [facility] Sodium [Moles/Vol] 142 mmol/L 136-145 [facility] WBC (Bld) [#/Vol] 9.1 10*3/uL 4.4-11.0 [facility] Bilirubin Test strip Ql (U)O rdered By: Dr. Mathew on 08-07-2022 Bilirubin Ql (U) Negative Negative [facility] Blood erythrocytes count (nu mber/volume)Ordered By: Dr. Mathew on 08-07-2022 RBC (Bld) [#/Vol] 5.01 10*6/uL 4.6-6.2 [facility] Blood hemoglobin measurement (mass/volume)Ordered By: Dr. Mathew on 08-07-2022 Hemoglobin (Bld) [Mass/Vol] 14.4 g/dL 13.0-16.5 [facility] Blood lymphocytes/100 leukoc ytesOrdered By: Dr. Mathew on 08-07-2022 Lymphocytes/100 WBC (Bld) 21.1 % 19-41 [facility] Blood monocytes/100 leukocyt esOrdered By: Dr. Mathew on 08-07-2022 Monocytes/100 WBC (Bld) 6.7 % 0-10 [facility] Blood platelet mean volumeOr dered By: Dr. Mathew on 08-07-2022 Platelet mean volume (Bld) [Entitic vol] 9.5 fL 6.2-12.0 [facility] Determination of erythrocyte mean corpuscular volume (MCV)Ordered By: Dr. Mathew on 08-07-2022 MCV (RBC) [Entitic vol] 84.0 fL 80-94 [facility] Glucose Glucometer (dC) [M ass/Vol]Ordered By: Dr. Mathew on 08-07-2022 Glucose [Mass/Vol] 193 mg/dL 74-106 [facility] Comment on above: MANAGEMENT OF PATIEN T CARE PER NURSING PROTOCOL Hematocrit Auto (Bld) [Volum e fraction]Ordered By: Dr. Mathew on 08-07-2022 Hematocrit (Bld) [Volume fraction] 42.1 % 40-54 [facility] Ketones Test strip Ql (U)Ord ered By: Dr. Mathew on 08-07-2022 Ketones Ql (U) Negative Negative [facility] Laboratory - Chemistry and C hemistry - challengeOrdered By: Dr. Mathew on 08-07-2022 ALP [Catalytic activity/Vol] 77 U/L 45-117 [facility] ALT [Catalytic activity/Vol] 16 U/L 16-61 [facility] CO2 [Moles/Vol] 28.0 mmol/L 21.0-32.0 [facility] Globulin (S) [Mass/Vol] 3.6 g/dL 2.2-4.2 [facility] Urea nitrogen/Creatinine [Mass ratio] 8.7 mg/mg 10-20 [facility] Laboratory - Hematology and Cell countsOrdered By: Dr. Mathew on 08-07-2022 Erythrocyte distribution width (RBC) [Entitic vol] 42.5 fL 35.1-43.9 [facility] Erythrocyte distribution width (RBC) [Ratio] 14.0 % 11.6-14.6 [facility] Immature granulocytes/100 WBC (Bld) 0.400 % 0.0-0.9 [facility] Comment on above: IG% - Immature Granu locytes (promyelocytes, myelocytes and metamyelocytes) > 1% indicates that a LEFT SHIFT is Present. MCH (RBC) [Entitic mass] 28.7 pg 27.0-32.0 [facility] Nucleated RBC/100 WBC (Bld) [Ratio] 0 % 0-5 [facility] MCHC Auto (RBC) [Mass/Vol]Or dered By: Dr. Mathew on 08-07-2022 MCHC (RBC) [Mass/Vol] 34.2 g/dL 32-36 [facility] Mucus LM Ql (Urine sed)Order ed By: Dr. Mathew on 08-07-2022 Mucus Ql (Urine sed) 0 SEEN /hpf [facility] Nitrite Test strip Ql (U)Ord ered By: Dr. Mathew on 08-07-2022 Nitrite Ql (U) Negative Negative [facility] No Panel InformationOrdered By: Dr. Mathew on 08-07-2022 Estimated Creatinine Clearance Calc 104.92 ml/min [facility] Estimated GFR (MDRD) Amer 107 mL/min >60 [facility] Comment on above: GFR Calc Estimated GFR (MDRD) Non-Af Amer 89 mL/min >60 [facility] Comment on above: Non- GFR Calc Platelets bldOrdered By: Dr. Mathew on 08-07-2022 Platelets (Bld) [#/Vol] 227 10*3/uL 150-450 [facility] Protein Test strip Ql (U)Ord ered By: Dr. Mathew on 08-07-2022 Protein Ql (U) Negative Negative [facility] Serum or plasma albumin yayo urement (mass/volume)Ordered By: Dr. Mathew on 08-07-2022 Albumin [Mass/Vol] 3.9 g/dL 3.2-5.0 [facility] Serum or plasma albumin/glob ulin mass ratioOrdered By: Dr. Mathew on 08-07-2022 Albumin/Globulin [Mass ratio] 1.1 {ratio} 0.9-2.4 [facility] Serum or plasma calcium yayo urement (mass/volume)Ordered By: Dr. Mathew on 08-07-2022 Calcium [Mass/Vol] 9.1 mg/dL 8.5-10.1 [facility] Serum or plasma creatinine m easurement (mass/volume)Ordered By: Dr. Mathew on 08-07-2022 Creatinine [Mass/Vol] 0.92 mg/dL 0.70-1.30 [facility] Comment on above: The validity of the calculated GFR & GFRAA in patients over 70 years has not been determined. Clinical correlation is essential. Serum or plasma urea nitroge n measurement (mass/volume)Ordered By: Dr. Mathew on 08-07-2022 Urea nitrogen [Mass/Vol] 8 mg/dL 7-18 [facility] Squamous epithelial cells de tection in urine sediment by light microscopyOrdered By: Dr. Mathew on 08-07-2022 Epithelial cells.squamous LM Ql (Urine sed) 0 SEEN /hpf 0-5 [facility] Thin prep Papanicolaou smear with manual screeningOrdered By: Dr. Mathew on 08-07-2022 Thin prep Papanicolaou smear with manual screening 7 U/L 15-37 [facility] Thin prep Papanicolaou smear with manual screening 6 5-15 [facility] Urine blood detectionOrdered By: Dr. Mathew on 08-07-2022 RBC Ql (U) Negative Negative [facility] RBC Ql (U) 0 SEEN /hpf 0-5 [facility] Urine clarityOrdered By: Dr. Mathew on 08-07-2022 Clarity (U) Clear Clear [facility] Urine color determinationOrd ered By: Dr. Mathew on 08-07-2022 Color (U) Straw Yellow [facility] Urine glucose detectionOrder ed By: Dr. Mathew on 08-07-2022 Glucose Ql (U) Normal mg/dl Normal [facility] Urine leukocyte esterase det ection by dipstickOrdered By: Dr. Mathew on 08-07-2022 Leukocyte esterase Test strip Ql (U) Negative Negative [facility] Urine pHOrdered By: Dr. Sandra aguirre on 08-07-2022 pH (U) 6.0 [pH] 5.0 - 8.0 [facility] Urine sediment bacteria coun t by microscopy (number/high power field)Ordered By: Dr. Mathew on 08-07-2022 Bacteria LM.HPF (Urine sed) [#/Area] 0 /[HPF] None Seen [facility] Urine specific gravity measu rementOrdered By: Dr. Mathew on 08-07-2022 Specific gravity (U) [Rel density] 1.010 1.002-1.030 [facility] Urobilinogen Auto test strip Ql (U)Ordered By: Dr. Mathew on 08-07-2022 Urobilinogen Ql (U) Normal mg/dl Normal [facility] Absolute lymphocyte counton 07-02-2022 Lymphocytes Auto (Unsp spec) [#/Vol] 1.81 10*3/uL 0.83-4.51 [facility] Work Phone: Basophil percentageon 2021 Basophils/100 WBC (Bld) 0.4 % 0-1 [facility] Work Phone: Chloride [Moles/Vol] 107 mmol/L 98-107 [facility] Work Phone: Eosinophils/100 WBC (Bld) 2.5 % 0-5 [facility] Work Phone: Glucose [Mass/Vol] 132 mg/dL 74-106 [facility] Work Phone: Comment on above: Fasting Glucose resu lt greater than or equal to 126 mg/dL suggests DIABETES MELLITUS per A.D.A. criteria. Neutrophils (Bld) [#/Vol] 4.9 10*3/uL 2.0-7.7 [facility] Work Phone: Neutrophils/100 WBC (Bld) 64.6 % 47-70 [facility] Work Phone: Potassium [Moles/Vol] 3.7 mmol/L 3.5-5.1 [facility] Work Phone: [phone] Sodium [Moles/Vol] 142 mmol/L 136-145 [facility] Work Phone: WBC (Bld) [#/Vol] 7.5 10*3/uL 4.4-11.0 [facility] Work Phone: Basophil percentage 0 SEEN /hpf 0-[address] [facility] Work Phone: [phone] Bilirubin Test strip Ql (U)o n 07-02-2022 Bilirubin Ql (U) Negative Negative [facility] Work Phone: [phone] Blood erythrocytes count (nu mber/volume)on 07-02-2022 RBC (Bld) [#/Vol] 5.07 10*6/uL 4.6-6.2 [facility] Work Phone: [phone] Blood hemoglobin measurement (mass/volume)on 07-02-2022 Hemoglobin (Bld) [Mass/Vol] 14.5 g/dL 13.0-16.5 [facility] Work Phone: Blood lymphocytes/100 leukoc yteson 07-02-2022 Lymphocytes/100 WBC (Bld) 24.1 % 19-41 [facility] Work Phone: Blood monocytes/100 leukocyt eson 07-02-2022 Monocytes/100 WBC (Bld) 8.1 % 0-10 [facility] Work Phone: Blood platelet mean volumeon 07-02-2022 Platelet mean volume (Bld) [Entitic vol] 9.1 fL 6.2-12.0 [facility] Work Phone: [phone] Determination of erythrocyte mean corpuscular volume (MCV)on 07-02-2022 MCV (RBC) [Entitic vol] 82.6 fL 80-94 [facility] Work Phone: Hematocrit Auto (Bld) [Volum e fraction]on 07-02-2022 Hematocrit (Bld) [Volume fraction] 41.9 % 40-54 [facility] Work Phone: Ketones Test strip Ql (U)on 07-02-2022 Ketones Ql (U) Negative Negative [facility] Work Phone: Laboratory - Chemistry and C hemistry - challengeon 07-02-2022 CO2 [Moles/Vol] 30.0 mmol/L 21.0-32.0 [facility] Work Phone: Urea nitrogen/Creatinine [Mass ratio] 16.1 mg/mg 10-20 [facility] Work Phone: Laboratory - Hematology and Cell countson 07-02-2022 Erythrocyte distribution width (RBC) [Entitic vol] 40.1 fL 35.1-43.9 [facility] Work Phone: [phone] Erythrocyte distribution width (RBC) [Ratio] 13.5 % 11.6-14.6 [facility] Work Phone: [phone] Immature granulocytes/100 WBC (Bld) 0.300 % 0.0-0.9 [facility] Work Phone: Comment on above: IG% - Immature Granu locytes (promyelocytes, myelocytes and metamyelocytes) > 1% indicates that a LEFT SHIFT is Present. MCH (RBC) [Entitic mass] 28.6 pg 27.0-32.0 [facility] Work Phone: [phone] Nucleated RBC/100 WBC (Bld) [Ratio] 0 % 0-5 [facility] Work Phone: MCHC Auto (RBC) [Mass/Vol]on 07-02-2022 MCHC (RBC) [Mass/Vol] 34.6 g/dL 32-36 [facility] Work Phone: Mucus LM Ql (Urine sed)on Mucus Ql (Urine sed) 1+ /[facility] Work Phone: Nitrite Test strip Ql (U)on 07-02-2022 Nitrite Ql (U) Negative Negative [facility] Work Phone: No Panel Informationon 07-02 Estimated Creatinine Clearance Calc 110.95 ml/min [facility] Work Phone: Estimated GFR (MDRD) Amer 114 mL/min >60 [facility] Work Phone: Comment on above: GFR Calc Estimated GFR (MDRD) Non-Af Amer 94 mL/min >60 [facility] Work Phone: Comment on above: Non- GFR Calc Platelets bldon 07-02-2022 Platelets (Bld) [#/Vol] 189 10*3/uL 150-450 [facility] Work Phone: Protein Test strip Ql (U)on 07-02-2022 Protein Ql (U) 15 mg/dl Negative [facility] Work Phone: Serum or plasma calcium yayo urement (mass/volume)on 07-02-2022 Calcium [Mass/Vol] 9.1 mg/dL 8.5-10.1 [facility] Work Phone: Serum or plasma creatinine m easurement (mass/volume)on 07-02-2022 Creatinine [Mass/Vol] 0.87 mg/dL 0.70-1.30 [facility] Work Phone: Comment on above: The validity of the calculated GFR & GFRAA in patients over 70 years has not been determined. Clinical correlation is essential. Serum or plasma urea nitroge n measurement (mass/volume)on 07-02-2022 Urea nitrogen [Mass/Vol] 14 mg/dL 7-18 [facility] Work Phone: Squamous epithelial cells de tection in urine sediment by light microscopyon 07-02-2022 Epithelial cells.squamous LM Ql (Urine sed) 0-5 SEEN /hpf 0-5 [facility] Work Phone: Thin prep Papanicolaou smear with manual screeningon 07-02-2022 Thin prep Papanicolaou smear with manual screening 5 5-15 [facility] Work Phone: Urine blood detectionon RBC Ql (U) Negative Negative [facility] Work Phone: [phone] RBC Ql (U) 0 SEEN /hpf 0-5 [facility] Work Phone: Urine clarityon 07-02-2022 Clarity (U) Clear Clear [facility] Work Phone: Urine color determinationon 07-02-2022 Color (U) Yellow Yellow [facility] Work Phone: Urine glucose detectionon Glucose Ql (U) 100 mg/dl Normal [facility] Work Phone: [phone] Urine leukocyte esterase det ection by dipstickon 07-02-2022 Leukocyte esterase Test strip Ql (U) Negative Negative [facility] Work Phone: Urine pHon 07-02-2022 pH (U) 7.0 [pH] 5.0 - 8.0 [facility] Work Phone: [phone] Urine sediment bacteria coun t by microscopy (number/high power field)on 07-02-2022 Bacteria LM.HPF (Urine sed) [#/Area] 1 /[HPF] None Seen [facility] Work Phone: [phone] Urine specific gravity measu rementon 07-02-2022 Specific gravity (U) [Rel density] 1.010 1.002-1.030 [facility] Work Phone: [phone] Urobilinogen Auto test strip Ql (U)on 07-02-2022 Urobilinogen Ql (U) 1 mg/dl Normal [facility] Work Phone: [phone] Absolute lymphocyte counton 04-26-2022 Lymphocytes Auto (Unsp spec) [#/Vol] 1.44 10*3/uL 0.83-4.51 [facility] Work Phone: [phone] Basophil percentageon 2021 Basophil percentage 0 SEEN /hpf 0-5 [facility] Work Phone: Basophils/100 WBC (Bld) 0.3 % 0-1 [facility] Work Phone: Chloride [Moles/Vol] 109 mmol/L 98-107 [facility] Work Phone: Eosinophils/100 WBC (Bld) 4.3 % 0-5 [facility] Work Phone: Glucose [Mass/Vol] 121 mg/dL 74-106 [facility] Work Phone: Comment on above: Fasting Glucose resu lt from 100 to 125 mg/dL suggests IMPAIRED HOMEOSTASIS per A.D.A. criteria. Neutrophils (Bld) [#/Vol] 4.4 10*3/uL 2.0-7.7 [facility] Work Phone: Neutrophils/100 WBC (Bld) 66.3 % 47-70 [facility] Work Phone: Potassium [Moles/Vol] 3.6 mmol/L 3.5-5.1 [facility] Work Phone: Sodium [Moles/Vol] 142 mmol/L 136-145 [facility] Work Phone: WBC (Bld) [#/Vol] 6.7 10*3/uL 4.4-11.0 [facility] Work Phone: [phone] Bilirubin Test strip Ql (U)o n 04-26-2022 Bilirubin Ql (U) Negative Negative [facility] Work Phone: Blood erythrocytes count (nu mber/volume)on 04-26-2022 RBC (Bld) [#/Vol] 4.97 10*6/uL 4.6-6.2 [facility] Work Phone: Blood hemoglobin measurement (mass/volume)on 04-26-2022 Hemoglobin (Bld) [Mass/Vol] 14.1 g/dL 13.0-16.5 [facility] Work Phone: Blood lymphocytes/100 leukoc yteson 04-26-2022 Lymphocytes/100 WBC (Bld) 21.5 % 19-41 [facility] Work Phone: Blood monocytes/100 leukocyt eson 04-26-2022 Monocytes/100 WBC (Bld) 7.3 % 0-10 [facility] Work Phone: [phone] Blood platelet mean volumeon 04-26-2022 Platelet mean volume (Bld) [Entitic vol] 9.1 fL 6.2-12.0 [facility] Work Phone: Determination of erythrocyte mean corpuscular volume (MCV)on 04-26-2022 MCV (RBC) [Entitic vol] 80.7 fL 80-94 [facility] Work Phone: [phone] Hematocrit Auto (Bld) [Volum e fraction]on 04-26-2022 Hematocrit (Bld) [Volume fraction] 40.1 % 40-54 [facility] Work Phone: Ketones Test strip Ql (U)on 04-26-2022 Ketones Ql (U) Negative Negative [facility] Work Phone: Laboratory - Chemistry and C hemistry - challengeon 04-26-2022 CO2 [Moles/Vol] 28.0 mmol/L 21.0-32.0 [facility] Work Phone: Urea nitrogen/Creatinine [Mass ratio] 10.9 mg/mg 10-20 [facility] Work Phone: Laboratory - Hematology and Cell countson 04-26-2022 Erythrocyte distribution width (RBC) [Entitic vol] 38.6 fL 35.1-43.9 [facility] Work Phone: [phone] Erythrocyte distribution width (RBC) [Ratio] 13.4 % 11.6-14.6 [facility] Work Phone: [phone] Immature granulocytes/100 WBC (Bld) 0.300 % 0.0-0.9 [facility] Work Phone: Comment on above: IG% - Immature Granu locytes (promyelocytes, myelocytes and metamyelocytes) > 1% indicates that a LEFT SHIFT is Present. MCH (RBC) [Entitic mass] 28.4 pg .0-32.0 [facility] Work Phone: Nucleated RBC/100 WBC (Bld) [Ratio] 0 % 0-5 [facility] Work Phone: MCHC Auto (RBC) [Mass/Vol]on 04-26-2022 MCHC (RBC) [Mass/Vol] 35.2 g/dL 32-36 [facility] Work Phone: Mucus LM Ql (Urine sed)on Mucus Ql (Urine sed) 0 SEEN /hpf [facility] Work Phone: Nitrite Test strip Ql (U)on 04-26-2022 Nitrite Ql (U) Negative Negative [facility] Work Phone: No Panel Informationon 04-26 Troponin I High Sensitivity 3 pg/mL 3.0-78.0 [facility] Work Phone: Comment on above: Please Note: New [place]ira t Units and Gender Specific Reference Ranges. For more information see Policy Stat Procedure [place] High Sensitivity Troponin (TNIH) and attachments. Estimated Creatinine Clearance Calc 116.30 ml/min [facility] Work Phone: Estimated GFR (MDRD) Amer 121 mL/min >60 [facility] Work Phone: Comment on above: GFR Calc Estimated GFR (MDRD) Non-Af Amer 100 mL/min >60 [facility] Work Phone: Comment on above: Non- GFR Calc Platelets bldon 04-26-2022 Platelets (Bld) [#/Vol] 191 10*3/uL 150-450 [facility] Work Phone: Protein Test strip Ql (U)on 04-26-2022 Protein Ql (U) Negative Negative [facility] Work Phone: Serum or plasma calcium yayo urement (mass/volume)on 04-26-2022 Calcium [Mass/Vol] 8.8 mg/dL 8.5-10.1 [facility] Work Phone: Serum or plasma creatinine m easurement (mass/volume)on 04-26-2022 Creatinine [Mass/Vol] 0.83 mg/dL 0.70-1.30 [facility] Work Phone: Comment on above: The validity of the calculated GFR & GFRAA in patients over 70 years has not been determined. Clinical correlation is essential. Serum or plasma urea nitroge n measurement (mass/volume)on 04-26-2022 Urea nitrogen [Mass/Vol] 9 mg/dL 7-18 [facility] Work Phone: Squamous epithelial cells de tection in urine sediment by light microscopyon 04-26-2022 Epithelial cells.squamous LM Ql (Urine sed) 0 SEEN /hpf 0-5 [facility] Work Phone: Thin prep Papanicolaou smear with manual screeningon 04-26-2022 Thin prep Papanicolaou smear with manual screening 5 5-15 [facility] Work Phone: Urine blood detectionon 04-01 RBC Ql (U) Negative Negative [facility] Work Phone: RBC Ql (U) 0 SEEN /hpf 0-5 [facility] Work Phone: Urine clarityon 04-26-2022 Clarity (U) Clear Clear [facility] Work Phone: Urine color determinationon 04-26-2022 Color (U) Yellow Yellow [facility] Work Phone: Urine glucose detectionon Glucose Ql (U) Normal mg/dl Normal [facility] Work Phone: Urine leukocyte esterase det ection by dipstickon 04-26-2022 Leukocyte esterase Test strip Ql (U) Negative Negative [facility] Work Phone: Urine pHon 04-26-2022 pH (U) 6.0 [pH] 5.0 - 8.0 [facility] Work Phone: Urine sediment bacteria coun t by microscopy (number/high power field)on 04-26-2022 Bacteria LM.HPF (Urine sed) [#/Area] 0 /[HPF] None Seen [facility] Work Phone: Urine specific gravity measu rementon 04-26-2022 Specific gravity (U) [Rel density] 1.010 1.002-1.030 [facility] Work Phone: Urobilinogen Auto test strip Ql (U)on 04-26-2022 Urobilinogen Ql (U) Normal mg/dl Normal [facility] Work Phone: Glucose Glucometer (BldC) [M ass/Vol]on 03-20-2022 Glucose [Mass/Vol] 153 mg/dL 74-106 [facility] Work Phone: Comment on above: MANAGEMENT OF PATIEN T CARE PER NURSING PROTOCOL No Panel Informationon 03-20 D-Dimer Quantitative (PE/DVT) 0.75 FEU/ug/m 0.27-0.49 [facility] Work Phone: Comment on above: D-Dimer ELEVATED (>0 .49): Additional studies and clinicalassessments are indicated to conclude diagnosis of:Deep Vein Thrombosis (DVT) or Pulmonary Embolism (PE)CRITICAL VALUE VERIFIED. CALLED TO RACIEL JONES03/20/22 0754 Loida Townsend.RESULTS READ BACK BY SAME . Absolute lymphocyte counton 03-19-2022 Lymphocytes Auto (Unsp spec) [#/Vol] 1.56 10*3/uL 0.83-4.51 [facility] Work Phone: Assessment of wrist artery p atency prior to arterial punctureon 03-19-2022 Arterial patency Wrist artery --pre arterial puncture Positive [facility] Work Phone: Base excesson 03-19-2022 Base excess Calc (BldV) [Moles/Vol] 2 mmol/L -2-2 [facility] Work Phone: Basophil percentageon 2021 Basophil percentage 0-5 SEEN /hpf 0-5 [facility] Work Phone: Basophil percentage 25.7 mmol/L 22-[address] [facility] Work Phone: Basophils/100 WBC (Bld) 92 % 95-99 [facility] Work Phone: Basophils/100 WBC (Bld) 0.5 % 0-1 [facility] Work Phone: Bilirubin [Mass/Vol] 1.10 mg/dL 0.20-1.00 [facility] Work Phone: [phone] Comment on above: For patients on eltr ombopag therapy, use of Dimension [place] TBIL is not recommended. Chloride [Moles/Vol] 106 mmol/L 98-107 [facility] Work Phone: Eosinophils/100 WBC (Bld) 2.4 % 0-5 [facility] Work Phone: Glucose [Mass/Vol] 167 mg/dL 74-106 [facility] Work Phone: Comment on above: Fasting Glucose resu lt greater than or equal to 126 mg/dL suggests DIABETES MELLITUS per A.D.A. criteria. Lactate [Moles/Vol] 1.2 mmol/L 0.4-2.0 [facility] Work Phone: Neutrophils (Bld) [#/Vol] 7.8 10*3/uL 2.0-7.7 [facility] Work Phone: Neutrophils/100 WBC (Bld) 74.4 % 47-70 [facility] Work Phone: Potassium [Moles/Vol] 3.6 mmol/L 3.5-5.1 [facility] Work Phone: Protein [Mass/Vol] 7.2 g/dL 6.4-8.2 [facility] Work Phone: Sodium [Moles/Vol] 141 mmol/L 136-145 [facility] Work Phone: WBC (Bld) [#/Vol] 10.5 10*3/uL 4.4-11.0 [facility] Work Phone: Bilirubin Test strip Ql (U)o n 05-20-2022 Bilirubin Ql (U) Negative Negative [facility] Work Phone: [phone] Blood erythrocytes count (nu mber/volume)on 03-19-2022 RBC (Bld) [#/Vol] 5.05 10*6/uL 4.6-6.2 [facility] Work Phone: Blood hemoglobin measurement (mass/volume)on 03-19-2022 Hemoglobin (Bld) [Mass/Vol] 14.5 g/dL 13.0-16.5 [facility] Work Phone: Blood lymphocytes/100 leukoc yteson 03-19-2022 Lymphocytes/100 WBC (Bld) 14.9 % 19-41 [facility] Work Phone: Blood monocytes/100 leukocyt eson 03-19-2022 Monocytes/100 WBC (Bld) 7.3 % 0-10 [facility] Work Phone: Blood platelet mean volumeon 03-19-2022 Platelet mean volume (Bld) [Entitic vol] 9.1 fL 6.2-12.0 [facility] Work Phone: CO2 (BldA) [Partial pressure ]on 03-19-2022 CO2 (Bld) [Partial pressure] 37.6 mm[Hg] 35-45 [facility] Work Phone: [phone] Determination of erythrocyte mean corpuscular volume (MCV)on 03-19-2022 MCV (RBC) [Entitic vol] 83.4 fL 80-94 [facility] Work Phone: Hematocrit Auto (Bld) [Volum e fraction]on 03-19-2022 Hematocrit (Bld) [Volume fraction] 42.1 % 40-54 [facility] Work Phone: [phone] INR in Blood by Coagulation assayon 03-19-2022 INR Coag (Bld) [Relative time] 1.1 {INR} [facility] Work Phone: Ketones Test strip Ql (U)on 03-19-2022 Ketones Ql (U) Negative Negative [facility] Work Phone: [phone] Laboratory - Chemistry and C hemistry - challengeon 03-19-2022 ALP [Catalytic activity/Vol] 68 U/L 45-117 [facility] Work Phone: ALT [Catalytic activity/Vol] 14 U/L 16-61 [facility] Work Phone: CO2 [Moles/Vol] 28.0 mmol/L 21.0-32.0 [facility] Work Phone: Globulin (S) [Mass/Vol] 3.5 g/dL 2.2-4.2 [facility] Work Phone: Urea nitrogen/Creatinine [Mass ratio] 16.4 mg/mg 10-20 [facility] Work Phone: Laboratory - Coagulationon 0 03-19-2022 PT Coag (PPP) [Time] 14.1 s 11.7-14.9 [facility] Work Phone: [phone] Laboratory - Hematology and Cell countson 03-19-2022 Erythrocyte distribution width (RBC) [Entitic vol] 41.2 fL 35.1-43.9 [facility] Work Phone: [phone] Erythrocyte distribution width (RBC) [Ratio] 13.5 % 11.6-14.6 [facility] Work Phone: Immature granulocytes/100 WBC (Bld) 0.500 % 0.0-0.9 [facility] Work Phone: [phone] Comment on above: IG% - Immature Granu locytes (promyelocytes, myelocytes and metamyelocytes) > 1% indicates that a LEFT SHIFT is Present. MCH (RBC) [Entitic mass] 28.7 pg 27.0-32.0 [facility] Work Phone: Nucleated RBC/100 WBC (Bld) [Ratio] 0 % 0-5 [facility] Work Phone: MCHC Auto (RBC) [Mass/Vol]on 03-19-2022 MCHC (RBC) [Mass/Vol] 34.4 g/dL 32-36 [facility] Work Phone: Mucus LM Ql (Urine sed)on Mucus Ql (Urine sed) 0 SEEN /hpf [facility] Work Phone: Nitrite Test strip Ql (U)on 03-19-2022 Nitrite Ql (U) Negative Negative [facility] Work Phone: No Panel Informationon 03-19 SARS-CoV-2 & FLU Antigen (Rapid) [facility] Work Phone: Blood Gas Sample Site L Radial [facility] Work Phone: Blood Gas Specimen Type ART [facility] Work Phone: Blood Gas Total CO2 27 mmol/L [facility] Work Phone: Oxygen Delivery Device Room Air [facility] Work Phone: Estimated Creatinine Clearance Calc 88.88 ml/min [facility] Work Phone: Estimated GFR (MDRD) Amer 87 mL/min >60 [facility] Work Phone: Comment on above: GFR Calc Estimated GFR (MDRD) Non-Af Amer 72 mL/min >60 [facility] Work Phone: Comment on above: Non- GFR Calc Troponin I High Sensitivity < 3 pg/mL 3.0-78.0 [facility] Work Phone: Comment on above: Please Note: New Kira t Units and Gender Specific Reference Ranges. For more information see Policy Stat Procedure [place] High Sensitivity Troponin (TNIH) and attachments. Oxygen (BldA) [Partial press ure]on 03-19-2022 Oxygen (Bld) [Partial pressure] 62 mmHG 75-100 [facility] Work Phone: Platelets bldon 03-19-2022 Platelets (Bld) [#/Vol] 278 10*3/uL 150-450 [facility] Work Phone: Protein Test strip Ql (U)on 03-19-2022 Protein Ql (U) 30 mg/dl Negative [facility] Work Phone: Serum or plasma albumin yayo urement (mass/volume)on 03-19-2022 Albumin [Mass/Vol] 3.7 g/dL 3.2-5.0 [facility] Work Phone: Serum or plasma albumin/glob ulin mass ratioon 03-19-2022 Albumin/Globulin [Mass ratio] 1.1 {ratio} 0.9-2.4 [facility] Work Phone: Serum or plasma calcium yayo urement (mass/volume)on 03-19-2022 Calcium [Mass/Vol] 9.0 mg/dL 8.5-10.1 [facility] Work Phone: Serum or plasma creatinine m easurement (mass/volume)on 03-19-2022 Creatinine [Mass/Vol] 1.10 mg/dL 0.70-1.30 [facility] Work Phone: Comment on above: The validity of the calculated GFR & GFRAA in patients over 70 years has not been determined. Clinical correlation is essential. Serum or plasma urea nitroge n measurement (mass/volume)on 03-19-2022 Urea nitrogen [Mass/Vol] 18 mg/dL 7-18 [facility] Work Phone: Squamous epithelial cells de tection in urine sediment by light microscopyon 03-19-2022 Epithelial cells.squamous LM Ql (Urine sed) 0-5 SEEN /hpf 0-5 [facility] Work Phone: Thin prep Papanicolaou smear with manual screeningon 03-19-2022 Thin prep Papanicolaou smear with manual screening 10 U/L 15-37 [facility] Work Phone: Thin prep Papanicolaou smear with manual screening 7 5-15 [facility] Work Phone: Urine blood detectionon 03-01 RBC Ql (U) Negative Negative [facility] Work Phone: RBC Ql (U) 0 SEEN /hpf 0-5 [facility] Work Phone: Urine clarityon 03-19-2022 Clarity (U) Clear Clear [facility] Work Phone: Urine color determinationon 03-19-2022 Color (U) Yellow Yellow [facility] Work Phone: Urine glucose detectionon Glucose Ql (U) Normal mg/dl Normal [facility] Work Phone: Urine leukocyte esterase det ection by dipstickon 03-19-2022 Leukocyte esterase Test strip Ql (U) 25 /ul Negative [facility] Work Phone: [phone] Urine pHon 03-19-2022 pH (U) 5.0 [pH] 5.0 - 8.0 [facility] Work Phone: Urine sediment bacteria coun t by microscopy (number/high power field)on 03-19-2022 Bacteria LM.HPF (Urine sed) [#/Area] 0 /[HPF] None Seen [facility] Work Phone: Urine specific gravity measu rementon 03-19-2022 Specific gravity (U) [Rel density] 1.020 1.002-1.030 [facility] Work Phone: Urobilinogen Auto test strip Ql (U)on 03-19-2022 Urobilinogen Ql (U) 1 mg/dl Normal [facility] Work Phone: pH measurementon 03-19-2022 pH (Unsp spec) 7.44 [pH] 7.35-7.45 [facility] Work Phone: Absolute lymphocyte counton 03-02-2022 Lymphocytes Auto (Unsp spec) [#/Vol] 1.57 10*3/uL 0.83-4.51 [facility] Work Phone: Basophil percentageon 2021 Basophils/100 WBC (Bld) 0.7 % 0-1 [facility] Work Phone: Bilirubin [Mass/Vol] 0.40 mg/dL 0.20-1.00 [facility] Work Phone: Comment on above: For patients on eltr ombopag therapy, use of Dimension [place] TBIL is not recommended. Chloride [Moles/Vol] 108 mmol/L 98-107 [facility] Work Phone: Eosinophils/100 WBC (Bld) 3.8 % 0-5 [facility] Work Phone: Glucose [Mass/Vol] 222 mg/dL 74-106 [facility] Work Phone: Comment on above: Glucose result great er than or equal to 200 mg/dLsuggests DIABETES MELLITUS per A.D.A. criteria. Neutrophils (Bld) [#/Vol] 4.8 10*3/uL 2.0-7.7 [facility] Work Phone: Neutrophils/100 WBC (Bld) 66.5 % 47-70 [facility] Work Phone: Potassium [Moles/Vol] 3.5 mmol/L 3.5-5.1 [facility] Work Phone: Protein [Mass/Vol] 7.2 g/dL 6.4-8.2 [facility] Work Phone: Sodium [Moles/Vol] 141 mmol/L 136-145 [facility] Work Phone: WBC (Bld) [#/Vol] 7.2 10*3/uL 4.4-11.0 [facility] Work Phone: Blood erythrocytes count (nu mber/volume)on 03-02-2022 RBC (Bld) [#/Vol] 4.75 10*6/uL 4.6-6.2 [facility] Work Phone: Blood hemoglobin measurement (mass/volume)on 03-02-2022 Hemoglobin (Bld) [Mass/Vol] 13.7 g/dL 13.0-16.5 [facility] Work Phone: Blood lymphocytes/100 leukoc yteson 03-02-2022 Lymphocytes/100 WBC (Bld) 21.9 % 19-41 [facility] Work Phone: Blood monocytes/100 leukocyt eson 03-02-2022 Monocytes/100 WBC (Bld) 6.8 % 0-10 [facility] Work Phone: Blood platelet mean volumeon 03-02-2022 Platelet mean volume (Bld) [Entitic vol] 9.6 fL 6.2-12.0 [facility] Work Phone: [phone] Determination of erythrocyte mean corpuscular volume (MCV)on 03-02-2022 MCV (RBC) [Entitic vol] 82.1 fL 80-94 [facility] Work Phone: Hematocrit Auto (Bld) [Volum e fraction]on 03-02-2022 Hematocrit (Bld) [Volume fraction] 39.0 % 40-54 [facility] Work Phone: [phone] Laboratory - Chemistry and C hemistry - challengeon 03-02-2022 ALP [Catalytic activity/Vol] 69 U/L 45-117 [facility] Work Phone: [phone] ALT [Catalytic activity/Vol] 15 U/L 16-61 [facility] Work Phone: [phone] CO2 [Moles/Vol] 26.0 mmol/L 21.0-32.0 [facility] Work Phone: [phone] Globulin (S) [Mass/Vol] 3.5 g/dL 2.2-4.2 [facility] Work Phone: [phone] Urea nitrogen/Creatinine [Mass ratio] 14.9 mg/mg 10-20 [facility] Work Phone: Laboratory - Hematology and Cell countson 03-02-2022 Erythrocyte distribution width (RBC) [Entitic vol] 40.8 fL 35.1-43.9 [facility] Work Phone: [phone] Erythrocyte distribution width (RBC) [Ratio] 13.9 % 11.6-14.6 [facility] Work Phone: [phone] Immature granulocytes/100 WBC (Bld) 0.300 % 0.0-0.9 [facility] Work Phone: Comment on above: IG% - Immature Granu locytes (promyelocytes, myelocytes and metamyelocytes) > 1% indicates that a LEFT SHIFT is Present. MCH (RBC) [Entitic mass] 28.8 pg 27.0-32.0 [facility] Work Phone: Nucleated RBC/100 WBC (Bld) [Ratio] 0 % 0-5 [facility] Work Phone: MCHC Auto (RBC) [Mass/Vol]on 03-02-2022 MCHC (RBC) [Mass/Vol] 35.1 g/dL 32-36 [facility] Work Phone: No Panel Informationon 03-02 Estimated Creatinine Clearance Calc 104.00 ml/min [facility] Work Phone: Estimated GFR (MDRD) Amer 105 mL/min >60 [facility] Work Phone: Comment on above: GFR Calc Estimated GFR (MDRD) Non-Af Amer 86 mL/min >60 [facility] Work Phone: Comment on above: Non- GFR Calc Platelets bldon 03-02-2022 Platelets (Bld) [#/Vol] 221 10*3/uL 150-450 [facility] Work Phone: Serum or plasma albumin yayo urement (mass/volume)on 03-02-2022 Albumin [Mass/Vol] 3.7 g/dL 3.2-5.0 [facility] Work Phone: Serum or plasma albumin/glob ulin mass ratioon 03-02-2022 Albumin/Globulin [Mass ratio] 1.1 {ratio} 0.9-2.4 [facility] Work Phone: Serum or plasma calcium yayo urement (mass/volume)on 03-02-2022 Calcium [Mass/Vol] 8.5 mg/dL 8.5-10.1 [facility] Work Phone: Serum or plasma creatinine m easurement (mass/volume)on 03-02-2022 Creatinine [Mass/Vol] 0.94 mg/dL 0.70-1.30 [facility] Work Phone: Comment on above: The validity of the calculated GFR & GFRAA in patients over 70 years has not been determined. Clinical correlation is essential. Serum or plasma urea nitroge n measurement (mass/volume)on 03-02-2022 Urea nitrogen [Mass/Vol] 14 mg/dL 7-18 [facility] Work Phone: Thin prep Papanicolaou smear with manual screeningon 03-02-2022 Thin prep Papanicolaou smear with manual screening 8 U/L 15-37 [facility] Work Phone: Thin prep Papanicolaou smear with manual screening 7 5-15 [facility] Work Phone: Absolute lymphocyte counton 01-31-2022 Lymphocytes Auto (Unsp spec) [#/Vol] 1.83 10*3/uL 0.83-4.51 [facility] Work Phone: Basophil percentageon 2021 Basophils/100 WBC (Bld) 0.4 % 0-1 [facility] Work Phone: Bilirubin [Mass/Vol] 0.60 mg/dL 0.20-1.00 [facility] Work Phone: Comment on above: For patients on eltr ombopag therapy, use of Dimension [place] TBIL is not recommended. Chloride [Moles/Vol] 108 mmol/L 98-107 [facility] Work Phone: Eosinophils/100 WBC (Bld) 3.9 % 0-5 [facility] Work Phone: Glucose [Mass/Vol] 172 mg/dL 74-106 [facility] Work Phone: Comment on above: Fasting Glucose resu lt greater than or equal to 126 mg/dL suggests DIABETES MELLITUS per A.D.A. criteria. Neutrophils (Bld) [#/Vol] 5.6 10*3/uL 2.0-7.7 [facility] Work Phone: Neutrophils/100 WBC (Bld) 66.2 % 47-70 [facility] Work Phone: Potassium [Moles/Vol] 3.7 mmol/L 3.5-5.1 [facility] Work Phone: Protein [Mass/Vol] 7.0 g/dL 6.4-8.2 [facility] Work [facility]: Sodium [Moles/Vol] 140 mmol/L 136-[facility] Work Phone: WBC (Bld) [#/Vol] 8.4 10*3/uL 4.4-11.0 [facility] Work Phone: Blood erythrocytes count (nu mber/volume)on 01-31-2022 RBC (Bld) [#/Vol] 5.07 10*6/uL 4.6-6.2 [facility] Work [facility]: Blood hemoglobin measurement (mass/volume)on 01-31-2022 Hemoglobin (Bld) [Mass/Vol] 14.5 g/dL 13.0-16.5 [facility] Work Phone: Blood lymphocytes/100 leukoc yteson 01-31-2022 Lymphocytes/100 WBC (Bld) 21.8 % 19-41 [facility] Work Phone: Blood monocytes/100 leukocyt eson 01-31-2022 Monocytes/100 WBC (Bld) 7.3 % 0-10 [facility] Work Phone: Blood platelet mean volumeon 01-31-2022 Platelet mean volume (Bld) [Entitic vol] 9.1 fL 6.2-12.0 [facility] Work Phone: Determination of erythrocyte mean corpuscular volume (MCV)on 01-31-2022 MCV (RBC) [Entitic vol] 80.9 fL 80-94 [facility] Work Phone: Hematocrit Auto (Bld) [Volum e fraction]on 01-31-2022 Hematocrit (Bld) [Volume fraction] 41.0 % 40-54 [facility] Work Phone: Laboratory - Chemistry and C hemistry - challengeon 01-31-2022 ALP [Catalytic activity/Vol] 68 U/L 45-117 [facility] Work Phone: [phone] ALT [Catalytic activity/Vol] 14 U/L 16-61 [facility] Work Phone: [phone] CO2 [Moles/Vol] 26.0 mmol/L 21.0-32.0 [facility] Work Phone: [phone] Globulin (S) [Mass/Vol] 3.3 g/dL 2.2-4.2 [facility] Work Phone: [phone] Urea nitrogen/Creatinine [Mass ratio] 18.0 mg/mg 10-20 [facility] Work Phone: [phone] Laboratory - Hematology and Cell countson 01-31-2022 Erythrocyte distribution width (RBC) [Entitic vol] 39.8 fL 35.1-43.9 [facility] Work Phone: [phone] Erythrocyte distribution width (RBC) [Ratio] 13.8 % 11.6-14.6 [facility] Work Phone: [phone] Immature granulocytes/100 WBC (Bld) 0.400 % 0.0-0.9 [facility] Work Phone: [phone] Comment on above: IG% - Immature Granu locytes (promyelocytes, myelocytes and metamyelocytes) > 1% indicates that a LEFT SHIFT is Present. MCH (RBC) [Entitic mass] 28.6 pg 27.0-32.0 [facility] Work Phone: [phone] Nucleated RBC/100 WBC (Bld) [Ratio] 0 % 0-5 [facility] Work Phone: [phone] MCHC Auto (RBC) [Mass/Vol]on 01-31-2022 MCHC (RBC) [Mass/Vol] 35.4 g/dL 32-36 [facility] Work Phone: No Panel Informationon 01-31 Estimated Creatinine Clearance Calc 125.34 ml/min [facility] Work Phone: Estimated GFR (MDRD) Amer 131 mL/min >60 [facility] Work Phone: Comment on above: GFR Calc Estimated GFR (MDRD) Non-Af Amer 108 mL/min >60 [facility] Work Phone: Comment on above: Non- GFR Calc Platelets bldon 01-31-2022 Platelets (Bld) [#/Vol] 222 10*3/uL 150-450 [facility] Work Phone: Serum or plasma albumin yayo urement (mass/volume)on 01-31-2022 Albumin [Mass/Vol] 3.7 g/dL 3.2-5.0 [facility] Work Phone: Serum or plasma albumin/glob ulin mass ratioon 01-31-2022 Albumin/Globulin [Mass ratio] 1.1 {ratio} 0.9-2.4 [facility] Work Phone: Serum or plasma calcium yayo urement (mass/volume)on 01-31-2022 Calcium [Mass/Vol] 8.4 mg/dL 8.5-10.1 [facility] Work Phone: Serum or plasma creatinine m easurement (mass/volume)on 01-31-2022 Creatinine [Mass/Vol] 0.78 mg/dL 0.70-1.30 [facility] Work Phone: Comment on above: The validity of the calculated GFR & GFRAA in patients over 70 years has not been determined. Clinical correlation is essential. Serum or plasma urea nitroge n measurement (mass/volume)on 01-31-2022 Urea nitrogen [Mass/Vol] 14 mg/dL 7-18 [facility] Work Phone: Thin prep Papanicolaou smear with manual screeningon 01-31-2022 Thin prep Papanicolaou smear with manual screening 13 U/L 15-37 [facility] Work Phone: Thin prep Papanicolaou smear with manual screening 6 5-15 [facility] Work Phone: Absolute lymphocyte counton 01-08-2022 Lymphocytes Auto (Unsp spec) [#/Vol] 1.33 10*3/uL 0.83-4.51 [facility] Work Phone: Basophil percentageon 2021 Basophils/100 WBC (Bld) 0.3 % 0-1 [facility] Work Phone: Bilirubin [Mass/Vol] 0.60 mg/dL 0.20-1.00 [facility] Work Phone: Comment on above: For patients on eltr ombopag therapy, use of Dimension [place] TBIL is not recommended. Chloride [Moles/Vol] 104 mmol/L 98-107 [facility] Work Phone: Eosinophils/100 WBC (Bld) 0.5 % 0-5 [facility] Work Phone: [phone] Glucose [Mass/Vol] 294 mg/dL 74-106 [facility] Work Phone: Comment on above: Glucose result great er than or equal to 200 mg/dLsuggests DIABETES MELLITUS per A.D.A. criteria. Neutrophils (Bld) [#/Vol] 8.1 10*3/uL 2.0-7.7 [facility] Work Phone: Neutrophils/100 WBC (Bld) 80.9 % 47-70 [facility] Work Phone: Potassium [Moles/Vol] 3.6 mmol/L 3.5-5.1 [facility] Work Phone: Protein [Mass/Vol] 7.6 g/dL 6.4-8.2 [facility] Work Phone: Sodium [Moles/Vol] 135 mmol/L 136-145 [facility] Work Phone: WBC (Bld) [#/Vol] 10.0 10*3/uL 4.4-11.0 [facility] Work Phone: Blood erythrocytes count (nu mber/volume)on 01-08-2022 RBC (Bld) [#/Vol] 5.06 10*6/uL 4.6-6.2 [facility] Work Phone: [phone] Blood hemoglobin measurement (mass/volume)on 01-08-2022 Hemoglobin (Bld) [Mass/Vol] 14.6 g/dL 13.0-16.5 [facility] Work Phone: Blood lymphocytes/100 leukoc yteson 01-08-2022 Lymphocytes/100 WBC (Bld) 13.4 % 19-41 [facility] Work Phone: Blood monocytes/100 leukocyt eson 01-08-2022 Monocytes/100 WBC (Bld) 4.4 % 0-10 [facility] Work Phone: Blood platelet mean volumeon 01-08-2022 Platelet mean volume (Bld) [Entitic vol] 9.2 fL 6.2-12.0 [facility] Work Phone: [phone] Determination of erythrocyte mean corpuscular volume (MCV)on 01-08-2022 MCV (RBC) [Entitic vol] 81.0 fL 80-94 [facility] Work Phone: [phone] Hematocrit Auto (Bld) [Volum e fraction]on 01-08-2022 Hematocrit (Bld) [Volume fraction] 41.0 % 40-54 [facility] Work Phone: [phone] Laboratory - Chemistry and C hemistry - challengeon 01-08-2022 ALP [Catalytic activity/Vol] 79 U/L 45-117 [facility] Work Phone: [phone] ALT [Catalytic activity/Vol] 16 U/L 16-61 [facility] Work Phone: [phone] CO2 [Moles/Vol] 25.0 mmol/L 21.0-32.0 [facility] Work Phone: [phone] Globulin (S) [Mass/Vol] 3.6 g/dL 2.2-4.2 [facility] Work Phone: [phone] Urea nitrogen/Creatinine [Mass ratio] 16.8 mg/mg 10-20 [facility] Work Phone: Laboratory - Hematology and Cell countson 01-08-2022 Erythrocyte distribution width (RBC) [Entitic vol] 40.0 fL 35.1-43.9 [facility] Work Phone: Erythrocyte distribution width (RBC) [Ratio] 13.9 % 11.6-14.6 [facility] Work Phone: Immature granulocytes/100 WBC (Bld) 0.500 % 0.0-0.9 [facility] Work Phone: Comment on above: IG% - Immature Granu locytes (promyelocytes, myelocytes and metamyelocytes) > 1% indicates that a LEFT SHIFT is Present. MCH (RBC) [Entitic mass] 28.9 pg 27.0-32.0 [facility] Work Phone: Nucleated RBC/100 WBC (Bld) [Ratio] 0 % 0-5 [facility] Work Phone: MCHC Auto (RBC) [Mass/Vol]on 01-08-2022 MCHC (RBC) [Mass/Vol] 35.6 g/dL 32-36 [facility] Work Phone: No Panel Informationon 01-08 Estimated Creatinine Clearance Calc 96.79 ml/min [facility] Work Phone: Estimated GFR (MDRD) Amer 96 mL/min >60 [facility] Work Phone: Comment on above: GFR Calc Estimated GFR (MDRD) Non-Af Amer 80 mL/min >60 [facility] Work Phone: Comment on above: Non- GFR Calc Platelets bldon 01-08-2022 Platelets (Bld) [#/Vol] 228 10*3/uL 150-450 [facility] Work Phone: Serum or plasma albumin yayo urement (mass/volume)on 01-08-2022 Albumin [Mass/Vol] 4.0 g/dL 3.2-5.0 [facility] Work Phone: Serum or plasma albumin/glob ulin mass ratioon 01-08-2022 Albumin/Globulin [Mass ratio] 1.1 {ratio} 0.9-2.4 [facility] Work Phone: Serum or plasma calcium yayo urement (mass/volume)on 01-08-2022 Calcium [Mass/Vol] 9.3 mg/dL 8.5-10.1 [facility] Work Phone: Serum or plasma creatinine m easurement (mass/volume)on 01-08-2022 Creatinine [Mass/Vol] 1.01 mg/dL 0.70-1.30 [facility] Work Phone: Comment on above: The validity of the calculated GFR & GFRAA in patients over 70 years has not been determined. Clinical correlation is essential. Serum or plasma urea nitroge n measurement (mass/volume)on 01-08-2022 Urea nitrogen [Mass/Vol] 17 mg/dL 7-18 [facility] Work Phone: Thin prep Papanicolaou smear with manual screeningon 01-08-2022 Thin prep Papanicolaou smear with manual screening 8 U/L 15-37 [facility] Work Phone: Thin prep Papanicolaou smear with manual screening 6 5-15 [facility] Work Phone: Absolute lymphocyte counton 01-07-2022 Lymphocytes Auto (Unsp spec) [#/Vol] 2.13 10*3/uL 0.83-4.51 [facility] Work Phone: Basophil percentageon 2021 Basophils/100 WBC (Bld) 0.3 % 0-1 [facility] Work Phone: Bilirubin [Mass/Vol] 0.60 mg/dL 0.20-1.00 [facility] Work Phone: Comment on above: For patients on eltr ombopag therapy, use of Dimension [place] TBIL is not recommended. Chloride [Moles/Vol] 107 mmol/L 98-107 [facility] Work Phone: Eosinophils/100 WBC (Bld) 2.7 % 0-5 [facility] Work Phone: Glucose [Mass/Vol] 150 mg/dL 74-106 [facility] Work Phone: Comment on above: Fasting Glucose resu lt greater than or equal to 126 mg/dL suggests DIABETES MELLITUS per A.D.A. criteria. Neutrophils (Bld) [#/Vol] 3.5 10*3/uL 2.0-7.7 [facility] Work Phone: Neutrophils/100 WBC (Bld) 55.6 % 47-70 [facility] Work Phone: Potassium [Moles/Vol] 3.4 mmol/L 3.5-5.1 [facility] Work Phone: Protein [Mass/Vol] 6.3 g/dL 6.4-8.2 [facility] Work Phone: Sodium [Moles/Vol] 139 mmol/L 136-145 [facility] Work Phone: WBC (Bld) [#/Vol] 6.3 10*3/uL 4.4-11.0 [facility] Work Phone: Blood erythrocytes count (nu mber/volume)on 01-07-2022 RBC (Bld) [#/Vol] 4.65 10*6/uL 4.6-6.2 [facility] Work Phone: Blood hemoglobin measurement (mass/volume)on 01-07-2022 Hemoglobin (Bld) [Mass/Vol] 13.5 g/dL 13.0-16.5 [facility] Work Phone: Blood lymphocytes/100 leukoc yteson 01-07-2022 Lymphocytes/100 WBC (Bld) 33.9 % 19-41 [facility] Work Phone: Blood monocytes/100 leukocyt eson 01-07-2022 Monocytes/100 WBC (Bld) 7.2 % 0-10 [facility] Work Phone: Blood platelet mean volumeon 01-07-2022 Platelet mean volume (Bld) [Entitic vol] 9.4 fL 6.2-12.0 [facility] Work Phone: Determination of erythrocyte mean corpuscular volume (MCV)on 01-07-2022 MCV (RBC) [Entitic vol] 82.2 fL 80-94 [facility] Work Phone: Glucose Glucometer (BldC) [M ass/Vol]on 01-07-2022 Glucose [Mass/Vol] 161 mg/dL 74-106 [facility] Work Phone: Comment on above: MANAGEMENT OF PATIEN T CARE PER NURSING PROTOCOL Hematocrit Auto (Bld) [Volum e fraction]on 01-07-2022 Hematocrit (Bld) [Volume fraction] 38.2 % 40-54 [facility] Work Phone: Laboratory - Chemistry and C hemistry - challengeon 01-07-2022 ALP [Catalytic activity/Vol] 64 U/L 45-117 [facility] Work Phone: ALT [Catalytic activity/Vol] 11 U/L 16-61 [facility] Work Phone: [phone] CO2 [Moles/Vol] 27.0 mmol/L 21.0-32.0 [facility] Work Phone: Globulin (S) [Mass/Vol] 3.1 g/dL 2.2-4.2 [facility] Work Phone: [phone] Urea nitrogen/Creatinine [Mass ratio] 12.9 mg/mg 10-20 [facility] Work Phone: [phone] Laboratory - Hematology and Cell countson 01-07-2022 Erythrocyte distribution width (RBC) [Entitic vol] 40.8 fL 35.1-43.9 [facility] Work Phone: [phone] Erythrocyte distribution width (RBC) [Ratio] 13.9 % 11.6-14.6 [facility] Work Phone: [phone] Immature granulocytes/100 WBC (Bld) 0.300 % 0.0-0.9 [facility] Work Phone: Comment on above: IG% - Immature Granu locytes (promyelocytes, myelocytes and metamyelocytes) > 1% indicates that a LEFT SHIFT is Present. MCH (RBC) [Entitic mass] 29.0 pg 27.0-32.0 [facility] Work Phone: Nucleated RBC/100 WBC (Bld) [Ratio] 0 % 0-5 [facility] Work Phone: MCHC Auto (RBC) [Mass/Vol]on 01-07-2022 MCHC (RBC) [Mass/Vol] 35.3 g/dL 32-36 [facility] Work Phone: No Panel Informationon 01-07 Estimated Creatinine Clearance Calc 139.66 ml/min [facility] Work Phone: Estimated GFR (MDRD) Amer 148 mL/min >60 [facility] Work Phone: Comment on above: GFR Calc Estimated GFR (MDRD) Non-Af Amer 123 mL/min >60 [facility] Work Phone: Comment on above: Non- GFR Calc Platelets bldon 01-07-2022 Platelets (Bld) [#/Vol] 208 10*3/uL 150-450 [facility] Work Phone: Serum or plasma albumin yayo urement (mass/volume)on 01-07-2022 Albumin [Mass/Vol] 3.2 g/dL 3.2-5.0 [facility] Work Phone: Serum or plasma albumin/glob ulin mass ratioon 01-07-2022 Albumin/Globulin [Mass ratio] 1.0 {ratio} 0.9-2.4 [facility] Work Phone: Serum or plasma calcium yayo urement (mass/volume)on 01-07-2022 Calcium [Mass/Vol] 8.4 mg/dL 8.5-10.1 [facility] Work Phone: Serum or plasma creatinine m easurement (mass/volume)on 01-07-2022 Creatinine [Mass/Vol] 0.70 mg/dL 0.70-1.30 [facility] Work Phone: Comment on above: The validity of the calculated GFR & GFRAA in patients over 70 years has not been determined. Clinical correlation is essential. Serum or plasma urea nitroge n measurement (mass/volume)on 01-07-2022 Urea nitrogen [Mass/Vol] 9 mg/dL 7-18 [facility] Work Phone: Thin prep Papanicolaou smear with manual screeningon 01-07-2022 Thin prep Papanicolaou smear with manual screening 8 U/L 15-37 [facility] Work Phone: Thin prep Papanicolaou smear with manual screening 5 5-15 [facility] Work Phone: Erythrocyte sedimentation ra mua 01-05-2022 ESR (Bld) [Velocity] 4 mm/h 0-20 [facility] Work Phone: Serum or plasma C reactive p rotein measurement (mass/volume)on 01-05-2022 CRP [Mass/Vol] mg/L 0.0-3.0 [facility] Work Phone: Comment on above: C-Reactive Protein ( CRP) provides useful information for thediagnosis, therapy and monitoring of inflammatory processesand associated diseases. For the evaluation of Relative Riskfor Cardiovascular Disease, a High Sensitivity CRP (HSCRP)should be ordered. Thin prep Papanicolaou smear with manual screeningon 01-05-2022 Thin prep Papanicolaou smear with manual screening 192 U/L 87-241 [facility] Work Phone: Basophil percentageon 2021 Basophil percentage 0 SEEN /hpf 0-5 [facility] Work Phone: Lactate [Moles/Vol] 1.1 mmol/L 0.4-2.0 [facility] Work Phone: Bilirubin Test strip Ql (U)o n 01-04-2022 Bilirubin Ql (U) Negative Negative [facility] Work Phone: Ketones Test strip Ql (U)on 01-04-2022 Ketones Ql (U) 50 mg/dl Negative [facility] Work Phone: Laboratory - Chemistry and C hemistry - challengeon 01-04-2022 Lipase [Catalytic activity/Vol] 38 U/L 73-393 [facility] Work Phone: Mucus LM Ql (Urine sed)on Mucus Ql (Urine sed) 0 SEEN /hpf [facility] Work Phone: Nitrite Test strip Ql (U)on 01-04-2022 Nitrite Ql (U) Negative Negative [facility] Work Phone: Protein Test strip Ql (U)on 01-04-2022 Protein Ql (U) 15 mg/dl Negative [facility] Work Phone: Squamous epithelial cells de tection in urine sediment by light microscopyon 01-04-2022 Epithelial cells.squamous LM Ql (Urine sed) 0 SEEN /hpf 0-5 [facility] Work Phone: Urine blood detectionon RBC Ql (U) Negative Negative [facility] Work Phone: RBC Ql (U) 0 SEEN /hpf 0-5 [facility] Work Phone: Urine clarityon 01-04-2022 Clarity (U) Clear Clear [facility] Work Phone: Urine color determinationon 01-04-2022 Color (U) Yellow Yellow [facility] Work Phone: Urine glucose detectionon Glucose Ql (U) 1000 mg/dl Normal [facility] Work Phone: Urine leukocyte esterase det ection by dipstickon 01-04-2022 Leukocyte esterase Test strip Ql (U) Negative Negative [facility] Work Phone: Urine pHon 01-04-2022 pH (U) 5.0 [pH] 5.0 - 8.0 [facility] Work Phone: Urine sediment bacteria coun t by microscopy (number/high power field)on 01-04-2022 Bacteria LM.HPF (Urine sed) [#/Area] 0 /[HPF] None Seen [facility] Work Phone: Urine specific gravity measu rementon 01-04-2022 Specific gravity (U) [Rel density] 1.010 1.002-1.030 [facility] Work Phone: Urobilinogen Auto test strip Ql (U)on 01-04-2022 Urobilinogen Ql (U) Normal mg/dl Normal [facility] Work Phone: Basophil percentageon 2021 Basophil percentage TNP [facility] Work Phone: Comment on above: Test not performedhe molysis present redraw for k if indicatedPrevious reported result: TNP mmol/LEdited by: VEL on 11/12/21:2008 Chloride [Moles/Vol] 102 mmol/L 98-107 [facility] Work Phone: Glucose [Mass/Vol] 326 mg/dL 74-106 [facility] Work Phone: Comment on above: Glucose result great er than or equal to 200 mg/dLsuggests DIABETES MELLITUS per A.D.A. criteria. Sodium [Moles/Vol] 135 mmol/L 136-145 [facility] Work Phone: Glucose Glucometer (BldC) [M ass/Vol]on 11-12-2021 Glucose [Mass/Vol] 324 mg/dL 70-110 [facility] Work Phone: Comment on above: MANAGEMENT OF PATIEN T CARE PER NURSING PROTOCOL Laboratory - Chemistry and C hemistry - challengeon 11-12-2021 CO2 [Moles/Vol] 26.0 mmol/L 21.0-32.0 [facility] Work Phone: Urea nitrogen/Creatinine [Mass ratio] 13.4 mg/mg 10-20 [facility] Work Phone: No Panel Informationon 11-12 Estimated Creatinine Clearance Calc 119.22 ml/min [facility] Work Phone: Estimated GFR (MDRD) Amer 122 mL/min >60 [facility] Work Phone: Comment on above: GFR Calc Estimated GFR (MDRD) Non-Af Amer 101 mL/min >60 [facility] Work Phone: Comment on above: Non- GFR Calc Serum or plasma calcium yayo urement (mass/volume)on 11-12-2021 Calcium [Mass/Vol] 8.6 mg/dL 8.5-10.1 [facility] Work Phone: Serum or plasma creatinine m easurement (mass/volume)on 11-12-2021 Creatinine [Mass/Vol] 0.82 mg/dL 0.70-1.30 [facility] Work Phone: Comment on above: The validity of the calculated GFR & GFRAA in patients over 70 years has not been determined. Clinical correlation is essential. Serum or plasma urea nitroge n measurement (mass/volume)on 11-12-2021 Urea nitrogen [Mass/Vol] 11 mg/dL 7-18 [facility] Work Phone: Thin prep Papanicolaou smear with manual screeningon 11-12-2021 Thin prep Papanicolaou smear with manual screening 7 5-15 [facility] Work Phone: Glucose,Bedsideon 10-07-2019 Glucose [Mass/Vol] 240 mg/dL High 70-100 [facility] Comment on above: Result Comment: Test performed by glucose meter. Results may be 10%-15% lower than serum/plasma values. (CLIA ID [id number]) Performed By: #### B MP3, HEMDF #### [facility] [address] [place] [id number] POCT Glucoseon 10-07-2019 Glucose [Mass/Vol] 240 mg/dL High 70 - 100 mg/dL [facility] Comment on above: Test performed by gl ucose meter. Results may be 10%-15% lower than serum/plasma values. (CLIA ID [id number]) Interpretation and review of laboratory results Abnormal [place], [place] Test Performed by [facility], [address] [place] [address] [place], [place] Basic Metabolic Panelon 12-0 Anion gap [Moles/Vol] 7 Normal [facility] Comment on above: Performed By: #### H EMDF, BMP3M, MG3 #### [address] Calcium [Mass/Vol] 9.0 mg/dL Normal 8.4-10.4 [facility] Comment on above: Performed By: #### H EMDF, BMP3M, MG3 #### [address] CO2 [Moles/Vol] 28 mmol/L Normal 22-30 [facility] Comment on above: Performed By: #### H EMDF, BMP3M, MG3 #### [address] Creatinine [Mass/Vol] 0.73 mg/dL Normal 0.52-1.25 [facility] Comment on above: Performed By: #### H EMDF, BMP3M, MG3 #### [address] GFR/1.73 sq M predicted among blacks MDRD (S/P/Bld) [Vol rate/Area] mL/min/{1.73_m2} Normal >60 [facility] Comment on above: Performed By: #### H EMDF, BMP3M, MG3 #### [address] [address] [place], [place] GFR/1.73 sq M predicted among non-blacks MDRD (S/P/Bld) [Vol rate/Area] mL/min/{1.73_m2} Normal >60 [facility] Comment on above: Result Comment: Sour ce- MDRD equation with creatinine calibration to IDMS(NKDEP) eGFR not recommended for drug dose adjustment Performed By: #### H EMDF, BMP3M, MG3 #### [address] [address] [place], [place] Glucose [Mass/Vol] 194 mg/dL High 70-100 [facility] Comment on above: Performed By: #### H EMDLiz, BMP3M, MG3 #### [facility] [address] [place], [place] Urea nitrogen [Mass/Vol] 10 mg/dL Normal 7-20 [facility] Comment on above: Performed By: #### H EMDF, BMP3M, MG3 #### [facility] [address] [place], [place] Chloride [Moles/Vol] 105 mmol/L Normal 98-107 [facility] Comment on above: Performed By: #### H EMDLiz BMP3M, MG3 #### [address] [address] [address] [place], [place] Potassium [Moles/Vol] 3.4 mmol/L Low 3.5-5.1 [facility] Comment on above: Performed By: #### H EMDLiz, BMP3M, MG3 #### [address] [address] [address] [place], [place] Sodium [Moles/Vol] 140 mmol/L Normal 135-145 [facility] Comment on above: Performed By: #### H EMDLiz, BMP3M, MG3 #### [address] [address] [address] [place], [place] Basic Metabolic Panel w/ Ref pietro to MGon 10-06-2019 Anion gap [Moles/Vol] 7 mmol/L [place], [place] Calcium [Mass/Vol] 9.0 mg/dL 8.4 - 10. 4 mg/dL [place] Chloride [Moles/Vol] 105 mmol/L 98 - 10 7 mmol/L [place] CO2 [Moles/Vol] 28 mmol/L 22 - 30 mmol/L [place] Creatinine [Mass/Vol] 0.73 mg/dL 0.52 - 1.25 mg/dL [place] EGFR IF NonAfrican Citizen Of [place] >60.0 >60 mL/min [place] Comment on above: Source- MDRD equatio n with creatinine calibration to IDMS(NKDEP) eGFR not recommended for drug dose adjustment GFR/1.73 sq M predicted among blacks MDRD (S/P/Bld) [Vol rate/Area] mL/min/{1.73_m2} >60 mL/min [place] Glucose [Mass/Vol] 194 mg/dL High 70 - 100 mg/dL [place] Potassium [Moles/Vol] 3.4 mmol/L Low 3.5 - 5.1 mmol/L [place] Sodium [Moles/Vol] 140 mmol/L 135 - 145 mmol/L [place] Urea nitrogen [Mass/Vol] 10 mg/dL 7 - 20 mg/dL [place] CBC auto differentialon 12-0 Absolute Baso # 0.1 10*3/uL 0 - 0.2 10*3/uL [place] Absolute Neut # 4.4 10*3/uL 1.8 - 7 10*3/uL [place] Basophils/100 WBC (Bld) 0.8 % 0 - 2 % [place] Eosinophils (Bld) [#/Vol] 0.2 10*3/uL 0 - 0.5 10*3/uL [place] Eosinophils/100 WBC (Bld) 2.8 % 1 - 6 % [place] Erythrocyte distribution width (RBC) [Ratio] 13.7 % 11.5 - 14.5 % [place] Granulocytes/100 WBC (Bld) 60.0 % 40 - 80 % [place] Hematocrit (Bld) [Volume fraction] 44.1 % 40 - 52 % [place] Hemoglobin (Bld) [Mass/Vol] 15.5 g/dL 13 - 18 g/dL [place] Lymphocytes (Bld) [#/Vol] 2.3 10*3/uL 1 - 4.3 10*3/uL [place] Lymphocytes/100 WBC (Bld) 30.7 % 20 - 40 % [place] MCH (RBC) [Entitic mass] 29.2 pg 26 - 34 pg [place] MCHC (RBC) [Mass/Vol] 35.2 % 32 - 36 % [place] MCV (RBC) [Entitic vol] 82.9 fL 80 - 98 fL [place], [place] Monocytes (Bld) [#/Vol] 0.4 10*3/uL 0 - 0.8 10*3/uL [place] Monocytes/100 WBC (Bld) 5.7 % 2 - 10 % [place], [place] Platelet mean volume (Bld) [Entitic vol] 7.5 fL 7.4 - 10.4 fL [place] Platelets (Bld) [#/Vol] 196 10*3/uL 140 - 440 10*3/uL [place] RBC (Bld) [#/Vol] 5.32 10*6/uL 4.4 - 5.9 10*6/uL [place] WBC (Bld) [#/Vol] 7.4 10*3/uL 3.6 - 10.7 10*3/uL [place] Test Performed by [facility], [address] [place] [address] [place], [place] Glucose,Bedsideon 10-06-2019 Glucose [Mass/Vol] 257 mg/dL High 70-100 [facility] Comment on above: Result Comment: Test performed by glucose meter. Results may be 10%-15% lower than serum/plasma values. (CLIA ID [id number]) Performed By: #### B MP3, HEMDF #### [address] [address] [place] [address] Glucose [Mass/Vol] 288 mg/dL High 70-100 [facility] Comment on above: Result Comment: Test performed by glucose meter. Results may be 10%-15% lower than serum/plasma values. (CLIA ID [id number]) Performed By: #### B MP3, HEMDF #### [facility] [address] [place] [address] Glucose [Mass/Vol] 198 mg/dL High 70-100 [facility] Comment on above: Result Comment: Test performed by glucose meter. Results may be 10%-15% lower than serum/plasma values. (CLIA ID [id number]) Performed By: #### B GLU #### [address] [address] [address] [place], [place] Glucose [Mass/Vol] 226 mg/dL High 70-100 [facility] Comment on above: Result Comment: Test performed by glucose meter. Results may be 10%-15% lower than serum/plasma values. (CLIA ID [id number]) Performed By: #### B GLU #### [address] [address] [address] [place], [place] Glucose [Mass/Vol] 207 mg/dL High 70-100 [facility] Comment on above: Result Comment: Test performed by glucose meter. Results may be 10%-15% lower than serum/plasma values. (CLIA ID [id number]) Performed By: #### B GLU #### [address] [address] [address] [place], [place] Glucose [Mass/Vol] 200 mg/dL High 70-100 [facility] Comment on above: Result Comment: Test performed by glucose meter. Results may be 10%-15% lower than serum/plasma values. (CLIA ID [id number]) Performed By: #### B GLU #### [address] [address] [address] [place], [place] Hemogram w/ Autodiffon 10-06 Abs Baso Cnt 0.1 10*3/uL Normal 0.0-0.2 [facility] Comment on above: Performed By: #### H EMDF, BMP3M, MG3 #### [address] [place], [place] Abs Neutrophile Cnt 4.4 10*3/uL Normal 1.8-7.0 [facility] Comment on above: Performed By: #### H EMDF, BMP3M, MG3 #### [address] Basophils/100 WBC (Bld) 0.8 % Normal 0.0-2.0 [facility] Comment on above: Performed By: #### H EMDF, BMP3M, MG3 #### [address] Eosinophils (Bld) [#/Vol] 0.2 10*3/uL Normal 0.0-0.5 [facility] Comment on above: Performed By: #### H EMDF, BMP3M, MG3 #### [address] Eosinophils/100 WBC (Bld) 2.8 % Normal 1.0-6.0 [facility] Comment on above: Performed By: #### H EMDF, BMP3M, MG3 #### [address] Erythrocyte distribution width (RBC) [Ratio] 13.7 % Normal 11.5-14.5 [facility] Comment on above: Performed By: #### H EMDF, BMP3M, MG3 #### [address] Granulocytes/100 WBC (Bld) 60.0 % Normal 40.0-80.0 [facility] Comment on above: Performed By: #### H EMDF, BMP3M, MG3 #### [address] Hematocrit (Bld) [Volume fraction] 44.1 % Normal 40.0-52.0 [facility] Comment on above: Performed By: #### H EMDF, BMP3M, MG3 #### [address] Hemoglobin (Bld) [Mass/Vol] 15.5 g/dL Normal 13.0-18.0 [facility] Comment on above: Performed By: #### H EMDF, BMP3M, MG3 #### [address] Lymphocytes (Bld) [#/Vol] 2.3 10*3/uL Normal 1.0-4.3 [facility] Comment on above: Performed By: #### H EMDF, BMP3M, MG3 #### [address] Lymphocytes/100 WBC (Bld) 30.7 % Normal 20.0-40.0 [facility] Comment on above: Performed By: #### H EMDF, BMP3M, MG3 #### [address] MCH (RBC) [Entitic mass] 29.2 pg Normal 26.0-34.0 [facility] Comment on above: Performed By: #### H EMDF, BMP3M, MG3 #### [address] MCHC (RBC) [Mass/Vol] 35.2 % Normal 32.0-36.0 [facility] Comment on above: Performed By: #### H EMDF, BMP3M, MG3 #### [address] MCV (RBC) [Entitic vol] 82.9 fL Normal 80.0-98.0 [facility] Comment on above: Performed By: #### H EMDF, BMP3M, MG3 #### [address] Monocytes (Bld) [#/Vol] 0.4 10*3/uL Normal 0.0-0.8 [facility] Comment on above: Performed By: #### H EMDF, BMP3M, MG3 #### [address] Monocytes/100 WBC (Bld) 5.7 % Normal 2.0-10.0 [facility] Comment on above: Performed By: #### H EMDF, BMP3M, MG3 #### [address] Platelet mean volume (Bld) [Entitic vol] 7.5 fL Normal 7.4-10.4 [facility] Comment on above: Performed By: #### H EMDF, BMP3M, MG3 #### [address] Platelets (Bld) [#/Vol] 196 10*3/uL Normal 140-440 [facility] Comment on above: Performed By: #### H EMDF, BMP3M, MG3 #### [facility] [address] [place] [address] RBC (Bld) [#/Vol] 5.32 10*6/uL Normal 4.40-5.90 [facility] Comment on above: Performed By: #### H EMDF, BMP3M, MG3 #### [facility] [address] [place], [place] WBC (Bld) [#/Vol] 7.4 10*3/uL Normal 3.6-10.7 [facility] Comment on above: Performed By: #### H EMDF, BMP3M, MG3 #### [facility] [address] [place] [address] Magnesiumon 10-06-2019 Magnesium [Mass/Vol] 1.5 mg/dL Low 1.6-2.3 [facility] Comment on above: Performed By: #### H EMDF, BMP3M, MG3 #### [facility] [address] [place] [address] Magnesium [Mass/Vol] 1.5 mg/dL Low 1.6 - 2 .3 mg/dL [place] Otheron 10-06-2019 Interpretation and review of laboratory results Abnormal [place] Test Performed by [facility], [facility] [place] [address] [place] POCT Glucoseon 10-06-2019 Glucose [Mass/Vol] 257 mg/dL High 70 - 100 mg/dL [place] Comment on above: Test performed by ucose meter. Results may be 10%-15% lower than serum/plasma values. (CLIA ID [id number]) Interpretation and review of laboratory results Abnormal [place] Test Performed by [facility], [facility] [place] [address] [place] Glucose [Mass/Vol] 288 mg/dL High 70 - 100 mg/dL [facility] [place] Comment on above: Test performed by gl ucose meter. Results may be 10%-15% lower than serum/plasma values. (CLIA ID [id number]) Interpretation and review of laboratory results Abnormal [facility] [place] Test Performed by [facility], [address] [place] [address] [facility] [place] Glucose [Mass/Vol] 198 mg/dL High 70 - 100 mg/dL [facility] [place] Comment on above: Test performed by gl ucose meter. Results may be 10%-15% lower than serum/plasma values. (CLIA ID [id number]) Interpretation and review of laboratory results Abnormal [facility] [place] Test Performed by [facility], [address] [place] [address] [facility] [place] Glucose [Mass/Vol] 226 mg/dL High 70 - 100 mg/dL [facility] [place] Comment on above: Test performed by gl ucose meter. Results may be 10%-15% lower than serum/plasma values. (CLIA ID [id number]) Interpretation and review of laboratory results Abnormal [facility] [place] Test Performed by [facility], [address] [place] [address] [facility] [place] Glucose [Mass/Vol] 207 mg/dL High 70 - 100 mg/dL [facility] [place] Comment on above: Test performed by gl ucose meter. Results may be 10%-15% lower than serum/plasma values. (CLIA ID [id number]) Interpretation and review of laboratory results Abnormal [facility] [place] Test Performed by [facility], [address] [place] [address] [facility] [place] Glucose [Mass/Vol] 200 mg/dL High 70 - 100 mg/dL [facility] [place] Comment on above: Test performed by gl ucose meter. Results may be 10%-15% lower than serum/plasma values. (CLIA ID [id number]) Interpretation and review of laboratory results Abnormal [facility] [place] Test Performed by [facility], [address] [place] [address] [facility] [place] Surgical Pathologyon 019 Surgical Pathology [id number] [facility] PATHOLOGY AND LABORATORY MEDICINE [address] [facility] [place] [address] FINAL SURGICAL PATHOLOGY REPORT ___ NAME: JERALD YODER : 1960 59 Y M LIZZ NO.: [id number] LOCATION: [address] [place] [address] PROCEDURE 10/06/2019 DATE: SURGEON: BECCA RAMIREZ MD [...] characteristics determined by the clinical laboratories of [facility]. They have not been cleared by [...] negativity on decalcified specimens. Professional Performing Location: [place] [address]. DEPARTMENT OF PATHOLOGY AND LABORATORY MEDICINE [place], [place] [address] Normal [facility] Basic Metabolic Panelon 12-0 Anion gap [Moles/Vol] 9 Normal [facility] Comment on above: Performed By: #### B MP3, HEMDF #### [address] [address] Calcium [Mass/Vol] 9.3 mg/dL Normal 8.4-10.4 [facility] Comment on above: Performed By: #### Kathi MP3, HEMDF #### [address] [address] CO2 [Moles/Vol] 24 mmol/L Normal 22-30 [facility] Comment on above: Performed By: #### B MP3, HEMDF #### [address] [address] Glucose [Mass/Vol] 317 mg/dL High 70-100 [facility] Comment on above: Performed By: #### B MP3, HEMDF #### [address] [address] Urea nitrogen [Mass/Vol] 11 mg/dL Normal 7-20 [facility] Comment on above: Performed By: #### B MP3, HEMDF #### [address] [place] [address] Creatinine [Mass/Vol] 0.71 mg/dL Normal 0.52-1.25 [facility] Comment on above: Performed By: #### B MP3, HEMDF #### [facility] [address] [place] [address] GFR/1.73 sq M predicted among blacks MDRD (S/P/Bld) [Vol rate/Area] mL/min/{1.73_m2} Normal >60 [facility] [facility] Comment on above: Performed By: #### B MP3, HEMDF #### [address] [place] [address] GFR/1.73 sq M predicted among non-blacks MDRD (S/P/Bld) [Vol rate/Area] mL/min/{1.73_m2} Normal >60 [facility] Comment on above: Result Comment: Sour ce- MDRD equation with creatinine calibration to IDMS(NKDEP) eGFR not recommended for drug dose adjustment Performed By: #### B MP3, HEMDF #### [address] [place] [address] Chloride [Moles/Vol] 104 mmol/L Normal 98-107 [facility] Comment on above: Performed By: #### B MP3, HEMDF #### [address] [place] [address] Potassium [Moles/Vol] 4.1 mmol/L Normal 3.5-5.1 [facility] Comment on above: Performed By: #### B MP3, HEMDF #### [address] [place] [address] Sodium [Moles/Vol] 137 mmol/L Normal 135-145 [facility] Comment on above: Performed By: #### B MP3, HEMDF #### [address] [place] [address] Anion gap [Moles/Vol] 9 mmol/L [facility] [place], [place] Calcium [Mass/Vol] 9.3 mg/dL 8.4 - 10. 4 mg/dL [place], [place] Chloride [Moles/Vol] 104 mmol/L 98 - 10 7 mmol/L [place] CO2 [Moles/Vol] 24 mmol/L 22 - 30 mmol/L [place] Creatinine [Mass/Vol] 0.71 mg/dL 0.52 - 1.25 mg/dL [place] EGFR IF NonAfrican Citizen Of [place] >60.0 >60 mL/min [place] Comment on above: Source- MDRD equatio n with creatinine calibration to IDMS(NKDEP) eGFR not recommended for drug dose adjustment GFR/1.73 sq M predicted among blacks MDRD (S/P/Bld) [Vol rate/Area] mL/min/{1.73_m2} >60 mL/min [place], [place] Glucose [Mass/Vol] 317 mg/dL High 70 - 100 mg/dL [place] Interpretation and review of laboratory results Abnormal [place] Potassium [Moles/Vol] 4.1 mmol/L 3.5 - 5.1 mmol/L [place] Sodium [Moles/Vol] 137 mmol/L 135 - 145 mmol/L [place] Urea nitrogen [Mass/Vol] 11 mg/dL 7 - 20 mg/dL [place] Test Performed by [facility], [address] [place] [id number] [place], [place] CBC Auto Differentialon 12-0 Absolute Baso # 0.0 10*3/uL 0 - 0.2 10*3/uL [place] Absolute Neut # 3.9 10*3/uL 1.8 - 7 10*3/uL [place] Basophils/100 WBC (Bld) 0.7 % 0 - 2 % [place] Eosinophils (Bld) [#/Vol] 0.2 10*3/uL 0 - 0.5 10*3/uL [place] Eosinophils/100 WBC (Bld) 2.6 % 1 - 6 % [place] Erythrocyte distribution width (RBC) [Ratio] 13.5 % 11.5 - 14.5 % [place] Granulocytes/100 WBC (Bld) 62.2 % 40 - 80 % [place] Hematocrit (Bld) [Volume fraction] 42.8 % 40 - 52 % [place] Hemoglobin (Bld) [Mass/Vol] 15.0 g/dL 13 - 18 g/dL [place] Lymphocytes (Bld) [#/Vol] 1.7 10*3/uL 1 - 4.3 10*3/uL [place] Lymphocytes/100 WBC (Bld) 27.4 % 20 - 40 % [place] MCH (RBC) [Entitic mass] 28.8 pg 26 - 34 pg [place] MCHC (RBC) [Mass/Vol] 35.1 % 32 - 36 % [place] MCV (RBC) [Entitic vol] 82.3 fL 80 - 98 fL [place], [place] Monocytes (Bld) [#/Vol] 0.4 10*3/uL 0 - 0.8 10*3/uL [place] Monocytes/100 WBC (Bld) 7.1 % 2 - 10 % [place], [place] Platelet mean volume (Bld) [Entitic vol] 7.4 fL 7.4 - 10.4 fL [place] Platelets (Bld) [#/Vol] 162 10*3/uL 140 - 440 10*3/uL [place] RBC (Bld) [#/Vol] 5.20 10*6/uL 4.4 - 5.9 10*6/uL [place] WBC (Bld) [#/Vol] 6.2 10*3/uL 3.6 - 10.7 10*3/uL [place] Test Performed by [facility], [address] [place] [id number] [place] [address] Glucose,Bedsideon 10-05-2019 Glucose [Mass/Vol] 214 mg/dL High 70-100 [facility] Comment on above: Result Comment: Test performed by glucose meter. Results may be 10%-15% lower than serum/plasma values. (CLIA ID [id number]) Performed By: #### B GLU #### [address] [place], [place] Hemogram w/ Autodiffon 10-05 Abs Baso Cnt 0.0 10*3/uL Normal 0.0-0.2 [facility] Comment on above: Performed By: #### B MP3, HEMDF #### [address] [place], [place] Abs Neutrophile Cnt 3.9 10*3/uL Normal 1.8-7.0 [facility] Comment on above: Performed By: #### B MP3, HEMDF #### [address] [place] Basophils/100 WBC (Bld) 0.7 % Normal 0.0-2.0 [facility] Comment on above: Performed By: #### B MP3, HEMDF #### [address] [place] Eosinophils (Bld) [#/Vol] 0.2 10*3/uL Normal 0.0-0.5 [facility] Comment on above: Performed By: #### B MP3, HEMDF #### [address] [place] Eosinophils/100 WBC (Bld) 2.6 % Normal 1.0-6.0 [facility] Comment on above: Performed By: #### B MP3, HEMDF #### [address] [place], [place] Erythrocyte distribution width (RBC) [Ratio] 13.5 % Normal 11.5-14.5 [facility] Comment on above: Performed By: #### B MP3, HEMDF #### [address] [place], [place] Granulocytes/100 WBC (Bld) 62.2 % Normal 40.0-80.0 [facility] Comment on above: Performed By: #### B MP3, HEMDF #### [address] [place] Hematocrit (Bld) [Volume fraction] 42.8 % Normal 40.0-52.0 [facility] Comment on above: Performed By: #### B MP3, HEMDF #### [address] [place] Hemoglobin (Bld) [Mass/Vol] 15.0 g/dL Normal 13.0-18.0 [facility] Comment on above: Performed By: #### B MP3, HEMDF #### [address] [place] Lymphocytes (Bld) [#/Vol] 1.7 10*3/uL Normal 1.0-4.3 [facility] Comment on above: Performed By: #### B MP3, HEMDF #### [address] Lymphocytes/100 WBC (Bld) 27.4 % Normal 20.0-40.0 [facility] Comment on above: Performed By: #### B MP3, HEMDF #### [address] [place] MCH (RBC) [Entitic mass] 28.8 pg Normal 26.0-34.0 [facility] Comment on above: Performed By: #### Kathi MP3, HEMDF #### [address] MCHC (RBC) [Mass/Vol] 35.1 % Normal 32.0-36.0 [facility] Comment on above: Performed By: #### B MP3, HEMDF #### [address] [place] MCV (RBC) [Entitic vol] 82.3 fL Normal 80.0-98.0 [facility] Comment on above: Performed By: #### B MP3, HEMDF #### [address] Monocytes (Bld) [#/Vol] 0.4 10*3/uL Normal 0.0-0.8 [facility] Comment on above: Performed By: #### B MP3, HEMDF #### [facility] [address] [place] [address] Monocytes/100 WBC (Bld) 7.1 % Normal 2.0-10.0 [facility] Comment on above: Performed By: #### B MP3, HEMDF #### [facility] [address] [place] [address] Platelet mean volume (Bld) [Entitic vol] 7.4 fL Normal 7.4-10.4 [facility] Comment on above: Performed By: #### B MP3, HEMDF #### [address] [place] [address] Platelets (Bld) [#/Vol] 162 10*3/uL Normal 140-440 [facility] Comment on above: Performed By: #### B MP3, HEMDF #### [address] [place] [address] RBC (Bld) [#/Vol] 5.20 10*6/uL Normal 4.40-5.90 [facility] Comment on above: Performed By: #### B MP3, HEMDF #### [address] [place] [address] WBC (Bld) [#/Vol] 6.2 10*3/uL Normal 3.6-10.7 [facility] Comment on above: Performed By: #### B MP3, HEMDF #### [address] [place] [address] POCT Glucoseon 10-05-2019 Glucose [Mass/Vol] 214 mg/dL High 70 - 100 mg/dL [place] Comment on above: Test performed by ucose meter. Results may be 10%-15% lower than serum/plasma values. (CLIA ID [id number]) Interpretation and review of laboratory results Abnormal [place], [place] Test Performed by [facility], [address] [place] [address] [place], [place] Culture, urine Bacteria identified Cx Nom (U) Culture exhibits no growth. [facility] Work Phone: Laboratory - Microbiology an d Antimicrobial susceptibility Bacteria identified Cx Nom (Bld) No growth in 5 days. [facility] Work Phone: No Panel Information SARS-CoV-2 & FLU Antigen (Rapid) [facility] Work Phone: Vital Signs Date Time Vital Sign Value Performing Clinician Facility 04-21-2025 13:00-0400 Body temperature 97.1 [degF] No Primary Care Physician [facility] 04-21-2025 13:00-0400 Diastolic blood pressure 66 mm[Hg] No Primary Care Physician [facility] 04-21-2025 13:00-0400 Heart rate 64 /min No Primary Care Physician [facility] 04-21-2025 13:00-0400 Respiratory rate 14 /min No Primary Care Physician [facility] 04-21-2025 13:00-0400 SaO2% (BldA) [Mass fraction] 99 % No Primary Care Physician [facility] 04-21-2025 13:00-0400 Systolic blood pressure 141 mm[Hg] No Primary Care Physician [facility] 04-21-2025 10:51-0400 Body height 195.58 cm No Primary Care Physician [facility] 03-26-2025 21:56-0400 Body mass index (BMI) [Ratio] 25.2 kg/m2 Dr. Pedro Krishnan DO Work Phone: [facility] 03-26-2025 21:56-0400 Body weight 96.[address] Pedro Krishnan DO Work Phone: [facility] 03-26-2025 20:09-0400 Body height 195.[address] Pedro Krishnan DO Work Phone: [facility] 03-26-2025 20:09-0400 Body temperature 97.6 [degF] Dr. Pedro Krishnan DO Work Phone: [facility] 03-26-2025 20:09-0400 Diastolic blood pressure 76 mm[Hg] Dr. Pedro Krishnan DO Work Phone: [facility] 03-26-2025 20:09-0400 Heart rate 71 /min Dr. Pedro Krishnan DO Work Phone: [facility] 03-26-2025 20:09-0400 Respiratory rate 18 /min Dr. Pedro Krishnan DO Work Phone: [facility] 03-26-2025 20:09-0400 SaO2% (BldA) [Mass fraction] 99 % Dr. Pedro Krishnan DO Work Phone: [facility] 03-26-2025 20:09-0400 Systolic blood pressure 146 mm[Hg] Dr. Pedro Krishnan DO Work Phone: [facility] 02-16-2025 07:41-0400 Body temperature 98 [degF] Dr. Linden Chavez DO Work Phone: [facility] 02-16-2025 07:41-0400 Diastolic blood pressure 98 mm[Hg] Dr. Linden Chavez DO Work Phone: [facility] 02-16-2025 07:41-0400 Heart rate 77 /min Dr. Linden Chavez DO Work Phone: [facility] 02-16-2025 07:41-0400 Respiratory rate 19 /min Dr. Linden Chavez DO Work Phone: [facility] 02-16-2025 07:41-0400 SaO2% (BldA) [Mass fraction] 99 % Dr. Linden Chavez DO Work Phone: [facility] 02-16-2025 07:41-0400 Systolic blood pressure 107 mm[Hg] Dr. Linden Chavez DO Work Phone: [facility] 02-16-2025 04:01-0400 Body height 195.[address] Linden Chavez DO Work Phone: [facility] 02-16-2025 04:01-0400 Body mass index (BMI) [Ratio] 24.7 kg/m2 Dr. Linden Chavez DO Work Phone: [facility] 02-16-2025 04:01-0400 Body weight 94.[address] Linden Chavez DO Work Phone: [facility] 12-27-2024 01:46-0500 Body temperature 97.9 [degF] Dr. Linden Chavez DO Work Phone: [facility] 12-27-2024 01:46-0500 Diastolic blood pressure 80 mm[Hg] Dr. Linden Chavez DO Work Phone: [facility] 12-27-2024 01:46-0500 Heart rate 82 /min Dr. Linden Chavez DO Work Phone: [facility] 12-27-2024 01:46-0500 Respiratory rate 18 /min Dr. Linden Chavez DO Work Phone: [facility] 12-27-2024 01:46-0500 SaO2% (BldA) [Mass fraction] 95 % Dr. Linden Chavez DO Work Phone: [facility] 12-27-2024 01:46-0500 Systolic blood pressure 129 mm[Hg] Dr. Linden Chavez DO Work Phone: [facility] 12-26-2024 23:51-0500 Body mass index (BMI) [Ratio] 25.4 kg/m2 Dr. Linden Chavez DO Work Phone: [facility] 12-26-2024 23:51-0500 Body weight 97.[address] Linden Chavez DO Work Phone: [facility] 12-20-2024 20:13-0500 Body temperature 97.8 [degF] Dr. Linden Chavez DO Work Phone: [facility] 12-20-2024 20:13-0500 Diastolic blood pressure 98 mm[Hg] Dr. Linden Chavez DO Work Phone: [facility] 12-20-2024 20:13-0500 Heart rate 98 /min Dr. Linden Chavez DO Work Phone: [facility] 12-20-2024 20:13-0500 Respiratory rate 18 /min Dr. Linden Chavez DO Work Phone: [facility] 12-20-2024 20:13-0500 SaO2% (BldA) [Mass fraction] 97 % Dr. Linden Chavez DO Work Phone: [facility] 12-20-2024 20:13-0500 Systolic blood pressure 130 mm[Hg] Dr. Linden Chavez DO Work Phone: [facility] 12-14-2024 09:29-0500 Body mass index (BMI) [Ratio] 27.02 kg/m2 Ion Moomaw [employer] ENGINEER.[employer] Work Phone: [facility] 12-14-2024 09:29-0500 Body temperature 97.11 [degF] Ion Moomaw [employer] SYSTEM[employer] ENGINEER.[employer] Work Phone: [facility] 12-14-2024 09:29-0500 Body weight 98.7 kg Ion Moomaw V[employer] SYSTEMS ENGINEER.[employer] Work Phone: [facility] 12-14-2024 09:29-0500 Diastolic blood pressure 70 mm[Hg] Ion Moomaw [employer]IDEO SYSTEMS ENGINEER.[employer] Work Phone: [facility] 12-14-2024 09:29-0500 Heart rate 77 /min Ion Moomaw [employer]IDEO SYSTEMS ENGINEER.[employer] Work Phone: [facility] 12-14-2024 09:29-0500 Respiratory rate 18 /min Ion Moomaw [employer] SYSTEMS ENGINEER.[employer]ER Work Phone: [facility] 12-14-2024 09:29-0500 SaO2% (BldA) [Mass fraction] 97 % Ion Moomaw VIDEO SYSTEMS ENGINEER.[employer]IF[employer]ER Work Phone: [facility] 12-14-2024 09:29-0500 Systolic blood pressure 105 mm[Hg] Ion Moomaw VIDEO SYSTEMS ENGINEER.[employer]ER Work Phone: [facility] 12-08-2024 14:52-0500 Body temperature 97.4 [degF] Dr. Linden Chavez DO Work Phone: [facility] 12-08-2024 14:52-0500 Diastolic blood pressure 102 mm[Hg] Dr. Linden Chavez DO Work Phone: [facility] 12-08-2024 14:52-0500 Heart rate 86 /min Dr. Linden Chavez DO Work Phone: [facility] 12-08-2024 14:52-0500 Respiratory rate 18 /min Dr. Linden Chavez DO Work Phone: [facility] 12-08-2024 14:52-0500 SaO2% (BldA) [Mass fraction] 95 % Dr. Linden Chavez DO Work Phone: [facility] 12-08-2024 14:52-0500 Systolic blood pressure 160 mm[Hg] Dr. Linden Chavez DO Work Phone: [facility] 12-08-2024 12:21-0500 Body mass index (BMI) [Ratio] 26.4 kg/m2 Dr. Linden Chavez DO Work Phone: [facility] 12-08-2024 12:21-0500 Body weight 101.[address] Linden Chavez DO Work Phone: [facility] 11-27-2024 16:07-0500 Body temperature 97.9 [degF] Dr. Linden Chavez DO Work Phone: [facility] 11-27-2024 16:07-0500 Diastolic blood pressure 69 mm[Hg] Dr. Linden Chavez DO Work Phone: [facility] 11-27-2024 16:07-0500 Heart rate 88 /min Dr. Linden Chavez DO Work Phone: [facility] 11-27-2024 16:07-0500 Respiratory rate 18 /min Dr. Linden Chavez DO Work Phone: [facility] 11-27-2024 16:07-0500 SaO2% (BldA) [Mass fraction] 96 % Dr. Linden Chavez DO Work Phone: [facility] 11-27-2024 16:07-0500 Systolic blood pressure 138 mm[Hg] Dr. Linden Chavez DO Work Phone: [facility] 10-30-2024 03:11-0500 Body temperature 97.4 [degF] Dr. Linden Chavez DO Work Phone: [facility] 10-30-2024 03:11-0500 Diastolic blood pressure 89 mm[Hg] Dr. Linden Chavez DO Work Phone: [facility] 10-30-2024 03:11-0500 Heart rate 77 /min Dr. Linden Chavez DO Work Phone: [facility] 10-30-2024 03:11-0500 Respiratory rate 18 /min Dr. Linden Chavez DO Work Phone: [facility] 10-30-2024 03:11-0500 SaO2% (BldA) [Mass fraction] 95 % Dr. Linden Chavez DO Work Phone: [facility] 10-30-2024 03:11-0500 Systolic blood pressure 103 mm[Hg] Dr. Linden Chavez DO Work Phone: [facility] 10-19-2024 06:50-0500 Body temperature 98.3 [degF] Dr. Linden Chavez DO Work Phone: [facility] 10-19-2024 06:50-0500 Diastolic blood pressure 75 mm[Hg] Dr. Linden Chavez DO Work Phone: [facility] 10-19-2024 06:50-0500 Heart rate 75 /min Dr. Linden Chavez DO Work Phone: [facility] 10-19-2024 06:50-0500 Respiratory rate 18 /min Dr. Linden Chavez DO Work Phone: [facility] 10-19-2024 06:50-0500 SaO2% (BldA) [Mass fraction] 96 % Dr. Linden Chavez DO Work Phone: [facility] 10-19-2024 06:50-0500 Systolic blood pressure 107 mm[Hg] Dr. Linden Chavez DO Work Phone: [facility] 10-19-2024 03:58-0500 Body mass index (BMI) [Ratio] 25.9 kg/m2 Dr. Linden Chavez DO Work Phone: [facility] 10-19-2024 03:58-0500 Body weight 99.[address] Linden Chavez DO Work Phone: [facility] 05-10-2024 19:42-0400 Body mass index (BMI) [Ratio] 27.65 kg/m2 Rosa Quinones VIDEO SYSTEMS ENGINEER.UNIF[employer]ER Work Phone: [facility] 05-10-2024 19:42-0400 Body temperature 97.5 [degF] Rosa Quinones VIDEO SYSTEMS ENGINEER.[employer]ER Work Phone: [facility] 05-10-2024 19:42-0400 Body weight 101 kg Rosa Quinones VIDEO SYSTEMS ENGINEER.[employer]ER Work Phone: [facility] 05-10-2024 19:42-0400 Diastolic blood pressure 81 mm[Hg] Rosa Quinones VIDEO SYSTEMS ENGINEER.[employer]IF[employer]ER Work Phone: [facility] 05-10-2024 19:42-0400 Heart rate 72 /min Rosa Quinones VIDEO SYSTEMS ENGINEER.[employer]ER Work Phone: [facility] 05-10-2024 19:42-0400 Respiratory rate 20 /min Rosa Quinones VIDEO SYSTEMS ENGINEER.[employer]ER Work Phone: [facility] 05-10-2024 19:42-0400 SaO2% (BldA) [Mass fraction] 96 % Rosa Quinones VIDEO SYSTEMS ENGINEER.UNIF[employer]ER Work Phone: [facility] 05-10-2024 19:42-0400 Systolic blood pressure 135 mm[Hg] Rosa Quinones LISSY Work Phone: [facility] 03-09-2024 02:47-0400 Body temperature 98.7 [degF] [facility] 03-09-2024 02:47-0400 Diastolic blood pressure 71 mm[Hg] [facility] 03-09-2024 02:47-0400 Heart rate 79 /min [facility] 03-09-2024 02:47-0400 Respiratory rate 16 /min [facility] 03-09-2024 02:47-0400 SaO2% (BldA) [Mass fraction] 99 % [facility] 03-09-2024 02:47-0400 Systolic blood pressure 136 mm[Hg] [facility] 03-09-2024 01:35-0400 Body height 195.58 cm [facility] 03-09-2024 01:35-0400 Body mass index (BMI) [Ratio] 26.1 kg/m2 [facility] 03-09-2024 01:35-0400 Body weight 100 kg [facility] 03-08-2024 10:04-0400 Body temperature 98.4 [degF] [facility] 03-08-2024 10:04-0400 Diastolic blood pressure 87 mm[Hg] [facility] 03-08-2024 10:04-0400 Heart rate 79 /min [facility] 03-08-2024 10:04-0400 Respiratory rate 17 /min [facility] 03-08-2024 10:04-0400 SaO2% (BldA) [Mass fraction] 96 % [facility] 03-08-2024 10:04-0400 Systolic blood pressure 142 mm[Hg] [facility] 03-08-2024 06:24-0400 Body height 195.58 cm [facility] 03-08-2024 06:24-0400 Body mass index (BMI) [Ratio] 27.3 kg/m2 [facility] 03-08-2024 06:24-0400 Body weight 104.7 kg [facility] 02-08-2024 00:47-0400 Body temperature 98.4 [degF] [facility] 02-08-2024 00:47-0400 Diastolic blood pressure 67 mm[Hg] [facility] 02-08-2024 00:47-0400 Heart rate 92 /min [facility] 02-08-2024 00:47-0400 Respiratory rate 16 /min [facility] 02-08-2024 00:47-0400 SaO2% (BldA) [Mass fraction] 95 % [facility] 02-08-2024 00:47-0400 Systolic blood pressure 114 mm[Hg] [facility] 02-07-2024 19:16-0400 Body height 195.58 cm [facility] 02-07-2024 19:16-0400 Body mass index (BMI) [Ratio] 26.7 kg/m2 [facility] 02-07-2024 19:16-0400 Body weight 102.42 kg [facility] 01-27-2024 06:12-0400 Body temperature 97.8 [degF] [facility] 01-27-2024 06:12-0400 Diastolic blood pressure 60 mm[Hg] [facility] 01-27-2024 06:12-0400 Heart rate 66 /min [facility] 01-27-2024 06:12-0400 Respiratory rate 18 /min [facility] 01-27-2024 06:12-0400 SaO2% (BldA) [Mass fraction] 98 % [facility] 01-27-2024 06:12-0400 Systolic blood pressure 100 mm[Hg] [facility] 01-26-2024 23:30-0400 Body height 195.58 cm [facility] 01-26-2024 23:30-0400 Body mass index (BMI) [Ratio] 27.5 kg/m2 [facility] 01-26-2024 23:30-0400 Body weight 105.2 kg [facility] 12-25-2023 11:45-0500 Body temperature 97.4 [degF] [facility] 12-25-2023 11:45-0500 Diastolic blood pressure 81 mm[Hg] [facility] 12-25-2023 11:45-0500 Heart rate 74 /min [facility] 12-25-2023 11:45-0500 Respiratory rate 16 /min [facility] 12-25-2023 11:45-0500 SaO2% (BldA) [Mass fraction] 97 % [facility] 12-25-2023 11:45-0500 Systolic blood pressure 147 mm[Hg] [facility] 12-25-2023 08:45-0500 Body height 195.58 cm [facility] 12-25-2023 08:45-0500 Body mass index (BMI) [Ratio] 26.7 kg/m2 [facility] 12-25-2023 08:45-0500 Body weight 102.3 kg [facility] 12-18-2023 17:53-0500 Body temperature 98.2 [degF] [facility] 12-18-2023 17:53-0500 Diastolic blood pressure 61 mm[Hg] [facility] 12-18-2023 17:53-0500 Heart rate 77 /min [facility] 12-18-2023 17:53-0500 Respiratory rate 18 /min [facility] 12-18-2023 17:53-0500 SaO2% (BldA) [Mass fraction] 97 % [facility] 12-18-2023 17:53-0500 Systolic blood pressure 109 mm[Hg] [facility] 12-18-2023 16:22-0500 Body mass index (BMI) [Ratio] 26.7 kg/m2 [facility] 12-18-2023 16:22-0500 Body weight 102.2 kg [facility] 12-18-2023 15:34-0500 Body height 195.58 cm [facility] 12-08-2023 14:42-0500 Respiratory rate 18 /min [facility] 12-08-2023 12:40-0500 Body height 195.58 cm [facility] 12-08-2023 12:40-0500 Body temperature 99.7 [degF] [facility] 12-08-2023 12:40-0500 Diastolic blood pressure 82 mm[Hg] [facility] 12-08-2023 12:40-0500 Heart rate 75 /min [facility] 12-08-2023 12:40-0500 SaO2% (BldA) [Mass fraction] 95 % [facility] 12-08-2023 12:40-0500 Systolic blood pressure 115 mm[Hg] [facility] 11-22-2023 17:37-0500 Diastolic blood pressure 74 mm[Hg] [facility] 11-22-2023 17:37-0500 Heart rate 71 /min [facility] 11-22-2023 17:37-0500 Respiratory rate 16 /min [facility] 11-22-2023 17:37-0500 SaO2% (BldA) [Mass fraction] 98 % [facility] 11-22-2023 17:37-0500 Systolic blood pressure 118 mm[Hg] [facility] 11-22-2023 14:21-0500 Body height 195.58 cm [facility] 11-22-2023 14:21-0500 Body mass index (BMI) [Ratio] 26.2 kg/m2 [facility] 11-22-2023 14:21-0500 Body temperature 97.6 [degF] [facility] 11-22-2023 14:21-0500 Body weight 100.4 kg [facility] 09-30-2023 23:40-0500 Body height 196.01 cm [facility] 09-30-2023 23:40-0500 Body mass index (BMI) [Ratio] 28.3 kg/m2 [facility] 09-30-2023 23:40-0500 Body temperature 97.7 [degF] [facility] 09-30-2023 23:40-0500 Body weight 108.86 kg [facility] 09-30-2023 23:40-0500 Diastolic blood pressure 77 mm[Hg] [facility] 09-30-2023 23:40-0500 Heart rate 77 /min [facility] 09-30-2023 23:40-0500 Respiratory rate 18 /min [facility] 09-30-2023 23:40-0500 SaO2% (BldA) [Mass fraction] 95 % [facility] 09-30-2023 23:40-0500 Systolic blood pressure 127 mm[Hg] [facility] 09-29-2023 23:39-0500 Diastolic blood pressure 83 mm[Hg] [facility] 09-29-2023 23:39-0500 Systolic blood pressure 132 mm[Hg] [facility] 09-29-2023 19:23-0500 Body height 195.58 cm [facility] 09-29-2023 19:23-0500 Body mass index (BMI) [Ratio] 28.4 kg/m2 [facility] 09-29-2023 19:23-0500 Body temperature 97.6 [degF] [facility] 09-29-2023 19:23-0500 Body weight 108.86 kg [facility] 09-29-2023 19:23-0500 Heart rate 82 /min [facility] 09-29-2023 19:23-0500 Respiratory rate 18 /min [facility] 09-29-2023 19:23-0500 SaO2% (BldA) [Mass fraction] 96 % [facility] 08-26-2023 05:07-0400 Body height 195.58 cm [facility] 08-26-2023 05:07-0400 Body mass index (BMI) [Ratio] 27.2 kg/m2 [facility] 08-26-2023 05:07-0400 Body temperature 97.3 [degF] [facility] 08-26-2023 05:07-0400 Body weight 104.3 kg [facility] 08-26-2023 05:07-0400 Diastolic blood pressure 80 mm[Hg] [facility] 08-26-2023 05:07-0400 Heart rate 78 /min [facility] 08-26-2023 05:07-0400 Respiratory rate 18 /min [facility] 08-26-2023 05:07-0400 SaO2% (BldA) [Mass fraction] 98 % [facility] 08-26-2023 05:07-0400 Systolic blood pressure 144 mm[Hg] [facility] 08-18-2023 15:51-0400 Body temperature 97.59 [degF] [facility] [employer] Work Phone: [facility] 08-18-2023 15:51-0400 Body weight 102.97 kg [facility] VIDEO SYSTEMS ENGINEER.[employer] Work Phone: [facility] 08-18-2023 15:51-0400 Diastolic blood pressure 80 mm[Hg] [facility] VIDEO SYSTEMS ENGINEER.[employer] Work Phone: [facility] 08-18-2023 15:51-0400 Heart rate 74 /min [facility] VIDEO SYSTEMS ENGINEER.[employer] Work Phone: [facility] 08-18-2023 15:51-0400 Respiratory rate 20 /min [facility] VIDEO SYSTEMS ENGINEER.[employer]IFORMER Work Phone: [facility] 08-18-2023 15:51-0400 SaO2% (BldA) [Mass fraction] 98 % [facility] VIDEO SYSTEMS ENGINEER.[employer]ER Work Phone: [facility] 08-18-2023 15:51-0400 Systolic blood pressure 127 mm[Hg] [facility] VIDEO SYSTEMS ENGINEER.[employer]ER Work Phone: [facility] 07-29-2023 13:51-0400 Diastolic blood pressure 101 mm[Hg] [facility] 07-29-2023 13:51-0400 Heart rate 86 /min [facility] 07-29-2023 13:51-0400 Respiratory rate 16 /min [facility] 07-29-2023 13:51-0400 SaO2% (BldA) [Mass fraction] 88 % [facility] 07-29-2023 13:51-0400 Systolic blood pressure 135 mm[Hg] [facility] 07-29-2023 09:08-0400 Body mass index (BMI) [Ratio] 28.2 kg/m2 [facility] 07-29-2023 09:08-0400 Body temperature 97.5 [degF] [facility] 07-29-2023 09:08-0400 Body weight 107.95 kg [facility] 05-12-2023 15:52-0400 Body height 195.58 cm [facility] 05-12-2023 15:52-0400 Body mass index (BMI) [Ratio] 28.4 kg/m2 [facility] 05-12-2023 15:52-0400 Body temperature 97.1 [degF] [facility] 05-12-2023 15:52-0400 Body weight 108.86 kg [facility] 05-12-2023 15:52-0400 Diastolic blood pressure 76 mm[Hg] [facility] 05-12-2023 15:52-0400 Heart rate 72 /min [facility] 05-12-2023 15:52-0400 Respiratory rate 14 /min [facility] 05-12-2023 15:52-0400 SaO2% (BldA) [Mass fraction] 94 % [facility] 05-12-2023 15:52-0400 Systolic blood pressure 125 mm[Hg] [facility] 03-07-2023 05:36-0400 Diastolic blood pressure 88 mm[Hg] [facility] 03-07-2023 05:36-0400 Heart rate 81 /min [facility] 03-07-2023 05:36-0400 Respiratory rate 18 /min [facility] 03-07-2023 05:36-0400 SaO2% (BldA) [Mass fraction] 96 % [facility] 03-07-2023 05:36-0400 Systolic blood pressure 141 mm[Hg] [facility] 03-07-2023 01:11-0400 Body height 187.96 cm [facility] 03-07-2023 01:11-0400 Body mass index (BMI) [Ratio] 30.2 kg/m2 [facility] 03-07-2023 01:11-0400 Body temperature 97.9 [degF] [facility] 03-07-2023 01:11-0400 Body weight 106.9 kg [facility] 01-18-2023 09:50-0400 Diastolic blood pressure 66 mm[Hg] [facility] 01-18-2023 09:50-0400 Heart rate 72 /min [facility] 01-18-2023 09:50-0400 Respiratory rate 15 /min [facility] 01-18-2023 09:50-0400 SaO2% (BldA) [Mass fraction] 98 % [facility] 01-18-2023 09:50-0400 Systolic blood pressure 143 mm[Hg] [facility] 01-18-2023 07:58-0400 Body height 195.58 cm [facility] 01-18-2023 07:58-0400 Body mass index (BMI) [Ratio] 27.2 kg/m2 [facility] 01-18-2023 07:58-0400 Body temperature 97.9 [degF] [facility] 01-18-2023 07:58-0400 Body weight 104.2 kg [facility] 12-11-2022 19:20-0500 Diastolic blood pressure 93 mm[Hg] [facility] 12-11-2022 19:20-0500 Heart rate 77 /min [facility] 12-11-2022 19:20-0500 Respiratory rate 16 /min [facility] 12-11-2022 19:20-0500 SaO2% (BldA) [Mass fraction] 96 % [facility] 12-11-2022 19:20-0500 Systolic blood pressure 154 mm[Hg] [facility] 12-11-2022 16:13-0500 Body height 195.58 cm [facility] 12-11-2022 16:13-0500 Body mass index (BMI) [Ratio] 27.7 kg/m2 [facility] 12-11-2022 16:13-0500 Body temperature 96.5 [degF] [facility] 12-11-2022 16:13-0500 Body weight 106.14 kg [facility] 12-10-2022 12:37-0500 Heart rate 78 /min [facility] 12-10-2022 12:37-0500 Respiratory rate 18 /min [facility] 12-10-2022 09:48-0500 Body height 195.58 cm [facility] 12-10-2022 09:48-0500 Body mass index (BMI) [Ratio] 27.8 kg/m2 [facility] 12-10-2022 09:48-0500 Body temperature 97.9 [degF] [facility] 12-10-2022 09:48-0500 Body weight 106.59 kg [facility] 12-10-2022 09:48-0500 Diastolic blood pressure 73 mm[Hg] [facility] 12-10-2022 09:48-0500 SaO2% (BldA) [Mass fraction] 99 % [facility] 12-10-2022 09:48-0500 Systolic blood pressure 109 mm[Hg] [facility] 11-25-2022 15:13-0500 Diastolic blood pressure 69 mm[Hg] [facility] 11-25-2022 15:13-0500 Heart rate 81 /min [facility] 11-25-2022 15:13-0500 Respiratory rate 16 /min [facility] 11-25-2022 15:13-0500 SaO2% (BldA) [Mass fraction] 97 % [facility] 11-25-2022 15:13-0500 Systolic blood pressure 137 mm[Hg] [facility] 11-25-2022 13:07-0500 Body height 195.58 cm [facility] 11-25-2022 13:07-0500 Body mass index (BMI) [Ratio] 27.7 kg/m2 [facility] 11-25-2022 13:07-0500 Body temperature 97.6 [degF] [facility] 11-25-2022 13:07-0500 Body weight 106.14 kg [facility] 10-30-2022 04:24-0500 Diastolic blood pressure 71 mm[Hg] [facility] 10-30-2022 04:24-0500 Heart rate 79 /min [facility] 10-30-2022 04:24-0500 Respiratory rate 16 /min [facility] 10-30-2022 04:24-0500 SaO2% (BldA) [Mass fraction] 95 % [facility] 10-30-2022 04:24-0500 Systolic blood pressure 115 mm[Hg] [facility] 10-29-2022 21:00-0500 Body mass index (BMI) [Ratio] 27.8 kg/m2 [facility] 10-29-2022 21:00-0500 Body temperature 97.3 [degF] [facility] 10-29-2022 21:00-0500 Body weight 106.59 kg [facility] 09-18-2022 10:21-0500 Body height 195.58 cm [facility] Work Phone: 09-18-2022 10:21-0500 Body mass index (BMI) [Ratio] 27.7 kg/m2 [facility] 09-18-2022 10:21-0500 Body temperature 97.4 [degF] [facility] 09-18-2022 10:21-0500 Body weight 106.14 kg [facility] 09-18-2022 10:21-0500 Diastolic blood pressure 94 mm[Hg] [facility] 09-18-2022 10:21-0500 Heart rate 77 /min [facility] 09-18-2022 10:21-0500 Respiratory rate 16 /min [facility] 09-18-2022 10:21-0500 SaO2% (BldA) [Mass fraction] 99 % [facility] 09-18-2022 10:21-0500 Systolic blood pressure 106 mm[Hg] [facility] 08-07-2022 22:15-0400 Diastolic blood pressure 70 mm[Hg] [facility] 08-07-2022 22:15-0400 Heart rate 83 /min [facility] 08-07-2022 22:15-0400 Respiratory rate 16 /min [facility] 08-07-2022 22:15-0400 SaO2% (BldA) [Mass fraction] 98 % [facility] 08-07-2022 22:15-0400 Systolic blood pressure 120 mm[Hg] [facility] 08-07-2022 18:39-0400 Body height 195.58 cm [facility] Work Phone: 08-07-2022 18:39-0400 Body mass index (BMI) [Ratio] 28.4 kg/m2 [facility] 08-07-2022 18:39-0400 Body temperature 97.8 [degF] [facility] 08-07-2022 18:39-0400 Body weight 108.86 kg [facility] 07-03-2022 00:40-0400 Heart rate 77 /min No Primary Care Physician [facility] Work Phone: 07-03-2022 00:40-0400 Respiratory rate 18 /min No Primary Care Physician [facility] Work Phone: 07-02-2022 20:57-0400 Body height 195.58 cm No Primary Care Physician [facility] Work Phone: 07-02-2022 20:57-0400 Body mass index (BMI) [Ratio] 27.8 kg/m2 No Primary Care Physician [facility] Work Phone: 07-02-2022 20:57-0400 Body temperature 97.8 [degF] No Primary Care Physician [facility] Work Phone: 07-02-2022 20:57-0400 Body weight 106.59 kg No Primary Care Physician [facility] Work Phone: 07-02-2022 20:57-0400 Diastolic blood pressure 97 mm[Hg] No Primary Care Physician [facility] Work Phone: 07-02-2022 20:57-0400 SaO2% (BldA) [Mass fraction] 99 % No Primary Care Physician [facility] Work Phone: 07-02-2022 20:57-0400 Systolic blood pressure 140 mm[Hg] No Primary Care Physician [facility] Work Phone: 05-26-2022 01:37-0400 Body height 195.58 cm No Primary Care Physician [facility] Work Phone: 05-26-2022 01:37-0400 Body mass index (BMI) [Ratio] 27.7 kg/m2 No Primary Care Physician [facility] Work Phone: 05-26-2022 01:37-0400 Body temperature 97.1 [degF] No Primary Care Physician [facility] Work Phone: 05-26-2022 01:37-0400 Body weight 106.14 kg No Primary Care Physician [facility] Work Phone: 05-26-2022 01:37-0400 Diastolic blood pressure 82 mm[Hg] No Primary Care Physician [facility] Work Phone: 05-26-2022 01:37-0400 Heart rate 79 /min No Primary Care Physician [facility] Work Phone: 05-26-2022 01:37-0400 Respiratory rate 16 /min No Primary Care Physician [facility] Work Phone: 05-26-2022 01:37-0400 SaO2% (BldA) [Mass fraction] 98 % No Primary Care Physician [facility] Work Phone: 05-26-2022 01:37-0400 Systolic blood pressure 137 mm[Hg] No Primary Care Physician [facility] Work Phone: 04-26-2022 18:38-0400 Heart rate 76 /min No Primary Care Physician [facility] Work Phone: 04-26-2022 18:38-0400 Respiratory rate 17 /min No Primary Care Physician [facility] Work Phone: 04-26-2022 18:38-0400 SaO2% (BldA) [Mass fraction] 97 % No Primary Care Physician [facility] Work Phone: 04-26-2022 14:33-0400 Body temperature 98 [degF] No Primary Care Physician [facility] Work Phone: 04-26-2022 14:33-0400 Diastolic blood pressure 74 mm[Hg] No Primary Care Physician [facility] Work Phone: 04-26-2022 14:33-0400 Heart rate 71 /min No Primary Care Physician [facility] Work Phone: 04-26-2022 14:33-0400 Respiratory rate 18 /min No Primary Care Physician [facility] Work Phone: 04-26-2022 14:33-0400 SaO2% (BldA) [Mass fraction] 99 % No Primary Care Physician [facility] Work Phone: 04-26-2022 14:33-0400 Systolic blood pressure 117 mm[Hg] No Primary Care Physician [facility] Work Phone: 04-26-2022 14:06-0400 Body height 195.58 cm No Primary Care Physician [facility] Work Phone: 04-26-2022 14:06-0400 Body mass index (BMI) [Ratio] 28.9 kg/m2 No Primary Care Physician [facility] Work Phone: 04-26-2022 14:06-0400 Body weight 110.67 kg No Primary Care Physician [facility] Work Phone: 03-20-2022 14:23-0400 Body temperature 99 [degF] No Primary Care Physician [facility] Work Phone: 03-20-2022 14:19-0400 Diastolic blood pressure 97 mm[Hg] No Primary Care Physician [facility] Work Phone: 03-20-2022 14:19-0400 Heart rate 70 /min No Primary Care Physician [facility] Work Phone: 03-20-2022 14:19-0400 Respiratory rate 16 /min No Primary Care Physician [facility] Work Phone: 03-20-2022 14:19-0400 SaO2% (BldA) [Mass fraction] 97 % No Primary Care Physician [facility] Work Phone: 03-20-2022 14:19-0400 Systolic blood pressure 156 mm[Hg] No Primary Care Physician [facility] Work Phone: 03-20-2022 12:29-0400 Body height 195.58 cm No Primary Care Physician [facility] Work Phone: 03-20-2022 12:29-0400 Body weight 98.6 kg No Primary Care Physician [facility] Work Phone: 03-19-2022 23:34-0400 Body mass index (BMI) [Ratio] 25.7 kg/m2 No Primary Care Physician [facility] Work Phone: 03-19-2022 23:08-0400 Body temperature 98.1 [degF] No Primary Care Physician [facility] Work Phone: 03-19-2022 23:08-0400 Diastolic blood pressure 89 mm[Hg] No Primary Care Physician [facility] Work Phone: 03-19-2022 23:08-0400 Heart rate 98 /min No Primary Care Physician [facility] Work Phone: 03-19-2022 23:08-0400 Respiratory rate 14 /min No Primary Care Physician [facility] Work Phone: 03-19-2022 23:08-0400 SaO2% (BldA) [Mass fraction] 97 % No Primary Care Physician [facility] Work Phone: 03-19-2022 23:08-0400 Systolic blood pressure 126 mm[Hg] No Primary Care Physician [facility] Work Phone: 03-19-2022 17:31-0400 Body height 195.58 cm No Primary Care Physician [facility] Work Phone: 03-19-2022 17:31-0400 Body mass index (BMI) [Ratio] 27.7 kg/m2 No Primary Care Physician [facility] Work Phone: 03-19-2022 17:31-0400 Body weight 106.14 kg No Primary Care Physician [facility] Work Phone: 03-02-2022 18:53-0400 Body height 195.58 cm No Primary Care Physician [facility] Work Phone: 03-02-2022 18:53-0400 Body mass index (BMI) [Ratio] 27.7 kg/m2 No Primary Care Physician [facility] Work Phone: 03-02-2022 18:53-0400 Body temperature 97.2 [degF] No Primary Care Physician [facility] Work Phone: 03-02-2022 18:53-0400 Body weight 106.14 kg No Primary Care Physician [facility] Work Phone: 03-02-2022 18:53-0400 Diastolic blood pressure 96 mm[Hg] No Primary Care Physician [facility] Work Phone: 03-02-2022 18:53-0400 Heart rate 82 /min No Primary Care Physician [facility] Work Phone: 03-02-2022 18:53-0400 Respiratory rate 15 /min No Primary Care Physician [facility] Work Phone: 03-02-2022 18:53-0400 SaO2% (BldA) [Mass fraction] 98 % No Primary Care Physician [facility] Work Phone: 03-02-2022 18:53-0400 Systolic blood pressure 145 mm[Hg] No Primary Care Physician [facility] Work Phone: 01-31-2022 09:08-0400 Diastolic blood pressure 77 mm[Hg] No Primary Care Physician [facility] Work Phone: 01-31-2022 09:08-0400 Heart rate 62 /min No Primary Care Physician [facility] Work Phone: 01-31-2022 09:08-0400 Respiratory rate 15 /min No Primary Care Physician [facility] Work Phone: 01-31-2022 09:08-0400 SaO2% (BldA) [Mass fraction] 98 % No Primary Care Physician [facility] Work Phone: 01-31-2022 09:08-0400 Systolic blood pressure 124 mm[Hg] No Primary Care Physician [facility] Work Phone: 01-31-2022 08:10-0400 Body mass index (BMI) [Ratio] 28.9 kg/m2 No Primary Care Physician [facility] Work Phone: 01-31-2022 08:10-0400 Body temperature 97.8 [degF] No Primary Care Physician [facility] Work Phone: 01-31-2022 08:10-0400 Body weight 110.67 kg No Primary Care Physician [facility] Work Phone: 01-08-2022 11:14-0500 Diastolic blood pressure 91 mm[Hg] No Primary Care Physician [facility] Work Phone: 01-08-2022 11:14-0500 Heart rate 78 /min No Primary Care Physician [facility] Work Phone: 01-08-2022 11:14-0500 Respiratory rate 16 /min No Primary Care Physician [facility] Work Phone: 01-08-2022 11:14-0500 Systolic blood pressure 136 mm[Hg] No Primary Care Physician [facility] Work Phone: 01-08-2022 10:14-0500 Diastolic blood pressure 91 mm[Hg] No Primary Care Physician [facility] Work Phone: 01-08-2022 10:14-0500 Heart rate 78 /min No Primary Care Physician [facility] Work Phone: 01-08-2022 10:14-0500 Respiratory rate 16 /min No Primary Care Physician [facility] Work Phone: 01-08-2022 10:14-0500 Systolic blood pressure 136 mm[Hg] No Primary Care Physician [facility] Work Phone: 01-08-2022 07:05-0500 Body mass index (BMI) [Ratio] 25.9 kg/m2 No Primary Care Physician [facility] Work Phone: 01-08-2022 07:05-0500 Body temperature 98.6 [degF] No Primary Care Physician [facility] Work Phone: 01-08-2022 07:05-0500 Body weight 99.4 kg No Primary Care Physician [facility] Work Phone: 01-08-2022 07:05-0500 SaO2% (BldA) [Mass fraction] 97 % No Primary Care Physician [facility] Work Phone: 01-08-2022 06:05-0500 Body mass index (BMI) [Ratio] 25.9 kg/m2 No Primary Care Physician [facility] Work Phone: 01-08-2022 06:05-0500 Body temperature 98.6 [degF] No Primary Care Physician [facility] Work Phone: 01-08-2022 06:05-0500 Body weight 99.4 kg No Primary Care Physician [facility] Work Phone: 01-08-2022 06:05-0500 SaO2% (BldA) [Mass fraction] 97 % No Primary Care Physician [facility] Work Phone: 01-07-2022 08:31-0500 Body temperature 98 [degF] No Primary Care Physician [facility] Work Phone: 01-07-2022 08:31-0500 Diastolic blood pressure 82 mm[Hg] No Primary Care Physician [facility] Work Phone: 01-07-2022 08:31-0500 Heart rate 70 /min No Primary Care Physician [facility] Work Phone: 01-07-2022 08:31-0500 Respiratory rate 16 /min No Primary Care Physician [facility] Work Phone: 01-07-2022 08:31-0500 SaO2% (BldA) [Mass fraction] 95 % No Primary Care Physician [facility] Work Phone: 01-07-2022 08:31-0500 Systolic blood pressure 138 mm[Hg] No Primary Care Physician [facility] Work Phone: 01-07-2022 07:31-0500 Body temperature 98 [degF] No Primary Care Physician [facility] Work Phone: 01-07-2022 07:31-0500 Diastolic blood pressure 82 mm[Hg] No Primary Care Physician [facility] Work Phone: 01-07-2022 07:31-0500 Heart rate 70 /min No Primary Care Physician [facility] Work Phone: 01-07-2022 07:31-0500 Respiratory rate 16 /min No Primary Care Physician [facility] Work Phone: 01-07-2022 07:31-0500 SaO2% (BldA) [Mass fraction] 95 % No Primary Care Physician [facility] Work Phone: 01-07-2022 07:31-0500 Systolic blood pressure 138 mm[Hg] No Primary Care Physician [facility] Work Phone: 01-05-2022 10:48-0500 Body weight 97.25 kg No Primary Care Physician [facility] Work Phone: 01-05-2022 09:55-0500 Body mass index (BMI) [Ratio] 25.4 kg/m2 No Primary Care Physician [facility] Work Phone: 01-05-2022 09:48-0500 Body weight 97.25 kg No Primary Care Physician [facility] Work Phone: 01-05-2022 08:55-0500 Body mass index (BMI) [Ratio] 25.4 kg/m2 No Primary Care Physician [facility] Work Phone: 11-12-2021 20:28-0500 Diastolic blood pressure 81 mm[Hg] No Primary Care Physician [facility] Work Phone: 11-12-2021 20:28-0500 Heart rate 71 /min No Primary Care Physician [facility] Work Phone: 11-12-2021 20:28-0500 Systolic blood pressure 128 mm[Hg] No Primary Care Physician [facility] Work Phone: 11-12-2021 17:55-0500 Body temperature 97.3 [degF] No Primary Care Physician [facility] Work Phone: 11-12-2021 17:55-0500 Respiratory rate 15 /min No Primary Care Physician [facility] Work Phone: 11-12-2021 17:55-0500 SaO2% (BldA) [Mass fraction] 96 % No Primary Care Physician [facility] Work Phone: 11-12-2021 17:53-0500 Body mass index (BMI) [Ratio] 28.2 kg/m2 No Primary Care Physician [facility] Work Phone: 11-12-2021 17:53-0500 Body weight 107.95 kg No Primary Care Physician [facility] Work Phone: 11-09-2021 08:52-0500 Diastolic blood pressure 92 mm[Hg] No Primary Care Physician [facility] Work Phone: 11-09-2021 08:52-0500 Heart rate 74 /min No Primary Care Physician [facility] Work Phone: 11-09-2021 08:52-0500 SaO2% (BldA) [Mass fraction] 95 % No Primary Care Physician [facility] Work Phone: 11-09-2021 08:52-0500 Systolic blood pressure 138 mm[Hg] No Primary Care Physician [facility] Work Phone: 11-09-2021 06:25-0500 Body mass index (BMI) [Ratio] 27.8 kg/m2 No Primary Care Physician [facility] Work Phone: 11-09-2021 06:25-0500 Body temperature 96.9 [degF] No Primary Care Physician [facility] Work Phone: 11-09-2021 06:25-0500 Body weight 106.59 kg No Primary Care Physician [facility] Work Phone: 11-09-2021 06:25-0500 Respiratory rate 18 /min No Primary Care Physician [facility] Work Phone: 10-07-2019 07:48-0500 Body Temperature 96.1 [degF] Jocelyn Valentin [facility], [place] 10-07-2019 07:48-0500 BP Diastolic 90 mm[Hg] Jocelyn Valentin [facility] , [place] 10-07-2019 07:48-0500 BP Systolic 139 mm[Hg] Jocelyn Valentin [place], [place] 10-07-2019 07:48-0500 Pulse (Heart Rate) 72 /min Jocelyn [facility] 10-07-2019 07:48-0500 Pulse Oximetry 95 % Jocelyn [facility] [place] 10-07-2019 07:48-0500 Respiratory Rate 16 /min Jocelyn Valentin [facility] [place] 10-07-2019 06:06-0500 BMI (Body Mass Index) 26.7 kg/m2 Jocelyn [place], [place] 10-07-2019 06:06-0500 Body weight 102.15 kg Jocelyn Valentin [place], [place] 10-06-2019 12:03-0500 Height 195.6 cm [place], [place] Encounters Encounter Date Encounter Type Care Provider Facility Start: 04-26-2025 End: 04-26-2025 ambulatory No Primary Care Physician -Laboratory Specimen Start: 04-26-2025 End: 04-26-[address] Linden Chavez DO -Laboratory Specimen Work Phone: Start: 04-26-2025 End: 04-26-2025 ambulatory [facility] Facility:[facility] Start: 04-23-2025 End: 04-23-2025 ambulatory No Primary Care Physician -Laboratory Mike Mendez [facility] Start: 04-23-2025 End: 04-23-[address] Linden Chavez DO -Laboratory Mike Mendez [facility] Start: 04-23-2025 End: 04-23-2025 ambulatory [facility] Facility:[facility] Start: 04-21-2025 End: 04-21-2025 Emergency department patient visit No Primary Care Physician -Emergency Department Work Phone: Start: 03-26-2025 End: 03-26-2025 Emergency department patient visit Dr. Pedro Krishnan DO Work Phone: -Emergency Department Work Phone: Start: 02-16-2025 End: 02-16-2025 Dr. Linden Chavez DO Work Phone: -Emergency Department Work Phone: Start: 02-16-2025 End: 02-16-2025 Emergency department patient visit Dr. Linden Chavez DO Work Phone: [facility] Work Phone: Start: 12-26-2024 End: 12-27-2024 [...] Work Phone: Start: 12-14-2024 End: 12-14-2024 ambulatory Facility:[facility] Start: 12-14-2024 End: 12-14-2024 Patient encounter procedure Ion Alfaro [employer] Work Phone: [facility] Comment on above: Eustachian tube dysf [...] 10-30-2024 Emergency department patient visit Linden Chavez Facility:[facility] Start: 10-19-2024 End: 10-19-2024 Dr. Live Ashley MD -Emergency Departm ent Work Phone: Start: 10-19-2024 End: 10-19-2024 Emergency department patient visit Live Ashley Facility:[facility] Start: 08-10-2024 End: 08-10-2024 Emergency department patient visit Adam Allen Facility:[facility] Start: 05-27-2024 End: 05-28-2024 Emergency department patient visit [facility] Facility:[facility] Start: 05-18-2024 End: 05-18-2024 Emergency department patient visit Shania Disla Facility:[facility] Start: 05-10-2024 End: 05-10-2024 ambulatory Facility:[facility] Start: 05-10-2024 End: 05-10-2024 Patient encounter procedure Rosa Quinones [employer]INE[employer] Work Phone: [facility] Comment on above: Bilateral impacted c erumen (Primary Dx) Start: 05-07-2024 End: 05-08-2024 Emergency department patient visit [facility] Facility:[facility] Start: 03-09-2024 End: 03-09-2024 Emergency department patient visit [facility] Work Phone: Start: 03-08-2024 End: 03-08-2024 Emergency department patient visit [facility] Work Phone: Start: 02-07-2024 End: 02-08-2024 Emergency department patient visit [facility] Work Phone: Start: 01-26-2024 End: 01-27-2024 Emergency department patient visit [facility] Work Phone: Start: 01-05-2024 End: 01-05-2024 ambulatory [facility] Work Phone: Start: 01-05-2024 End: 01-05-2024 Patient encounter procedure [facility], Mike Mendez [facility] Start: 12-25-2023 End: 12-25-2023 Emergency department patient visit [facility] Work Phone: Start: 12-18-2023 End: 12-18-2023 Emergency department patient visit [facility] Work Phone: Start: 12-08-2023 End: 12-08-2023 Emergency department patient visit [facility] Work Phone: Start: 11-22-2023 End: 11-22-2023 Emergency department patient visit [facility] Work Phone: Start: 09-30-2023 End: 10-01-2023 Emergency department patient visit [facility] Work Phone: Start: 09-29-2023 End: 09-29-2023 Emergency department patient visit [facility] Work Phone: Start: 08-26-2023 End: 08-26-2023 Emergency department patient visit [facility] Work Phone: Start: 08-18-2023 End: 08-18-2023 Office outpatient visit 15 minutes Jimmy Ramos APRN.[facility] Work Phone: [facility] Comment on above: Bilateral impacted c erumen (Primary Dx) Start: 07-29-2023 End: 07-29-2023 [facility] Start: 05-12-2023 End: 05-12-2023 Emergency department patient visit [facility] Work Phone: Start: 03-07-2023 End: 03-07-2023 Emergency department patient visit [facility] Start: 01-18-2023 End: 01-18-2023 Emergency department patient visit [facility] Start: 12-15-2022 End: 12-15-2022 ambulatory [facility] Work Phone: Start: 12-15-2022 End: 12-15-2022 Patient encounter procedure [facility], Mike Mendez [facility] Start: 12-11-2022 End: 12-11-2022 Emergency department patient visit [facility] Start: 12-10-2022 End: 12-10-2022 Emergency department patient visit [facility] Start: 11-25-2022 End: 11-25-2022 Emergency department patient visit [facility] Start: 10-29-2022 End: 10-30-2022 Emergency department patient visit [facility] Start: 09-18-2022 End: 09-18-2022 Emergency department patient visit [facility] Start: 08-07-2022 End: 08-07-2022 Emergency department patient visit [facility] Start: 07-02-2022 End: 07-03-2022 Emergency department patient visit No Primary Care Physician [facility] Start: 05-26-2022 End: 05-26-2022 Emergency department patient visit No Primary Care Physician [facility] Start: 04-26-2022 End: 04-26-2022 Emergency department patient visit No Primary Care Physician [facility] Start: 03-20-2022 Non-patient / Non-visit No Kiersten vasquez Care Physician [facility] Start: 03-19-2022 End: 03-20-2022 Evaluation and management of inpatient No Primary Care Physician [facility] 3 Start: 03-19-2022 Non-patient / Non-visit No Kiersten vasquez Care Physician [facility] Start: 03-02-2022 End: 03-02-2022 Emergency department patient visit No Primary Care Physician [facility] Start: 01-31-2022 End: 01-31-2022 Emergency department patient visit No Primary Care Physician [facility] Start: 01-08-2022 End: 01-08-2022 Emergency department patient visit No Primary Care Physician [facility] Start: 01-07-2022 Non-patient / Non-visit No Kiersten vasquez Care Physician [facility] Start: 01-06-2022 Non-patient / Non-visit No Kiersten christina Care Physician [facility] Start: 01-06-2022 Non-patient / Non-visit No Kiersten christina Care Physician [facility] Start: 01-05-2022 Non-patient / Non-visit No Kiersten vasquez Care Physician [facility] Start: 01-05-2022 Non-patient / Non-visit No Kiersten vasquez Care Physician [facility] Start: 01-04-2022 Non-patient / Non-visit No Kiersten vasquez Care Physician [facility] Start: 01-04-2022 End: 01-07-2022 Evaluation and management of inpatient No Primary Care Physician [facility] 3 Start: 11-12-2021 End: 11-12-2021 Emergency department patient visit No Primary Care Physician [facility] Start: 11-09-2021 End: 11-09-2021 Emergency department patient visit No Primary Care Physician [facility] Start: 10-05-2019 End: 10-07-2019 Evaluation [...] HCV Quant by PCR testing - HCVPCR lc#[id number] Non Reactive: < 0.8 Equivocal: >/= 0.8 [...] dip stick/tabl et reagent auto microscopy Dr. ePdro Krishnan DO Work Phone: Start: 11-27-2024 Measurement [...] Work Phone: Start: 11-21-2013 Colonoscopy Jimmy justice [employer] ENGINE[employer] Work Phone: Start: 06-22-2011 History of placement of stent for coronary artery disease S/P coronary artery stent placement Jimmy Rachel [employer] ENGINEER.[employer] Work Phone: Bacteria identified in Blood by [...] DTaP,Tdap,Td Vaccine (2 - Td or Tdap) [facility] Start: 12-14-2025 BP Controlled (<130/80) BP Controlled (<130/80) [facility] Start: 04-21-2025 [facility] Start: 03-26-2025 [facility] Start: 02-16-2025 End: 02-16-2025 [facility] Start: 12-27-2024 [facility] Start: 12-20-2024 [facility] Start: 12-08-2024 [facility] Start: 11-27-2024 End: 11-27-2024 [facility] Start: 10-30-2024 [facility] Start: 10-19-2024 [facility] Start: 07-01-2024 Covid-19 Vaccine ( season) Covid-19 Vaccine ( season) [facility] Start: 07-01-2024 Influenza vaccination Influenza Vaccine (#1) [facility] Start: 03-09-2024 [facility] Start: 03-08-2024 [facility] Start: 02-08-2024 [facility] Start: 01-27-2024 [facility] Start: 12-25-2023 End: 12-25-2023 [facility] Start: 12-18-2023 [facility] Start: 12-08-2023 [facility] Start: 11-22-2023 [facility] Start: 10-31-2023 Behavioral Health Screening Behavioral Health Screening [facility] Start: 10-01-2023 [facility] Start: 09-29-2023 [facility] Start: 09-29-2023 [facility] Start: 08-26-2023 [facility] Start: 07-01-2023 Covid-19 Vaccine ( season) Covid-19 Vaccine ( season) [facility] Start: 07-01-2023 Influenza vaccination Influenza Vaccine (#1) [facility] Start: 01-18-2023 Enteric precautions [facility] Start: 10-31-2022 Depression Assessment Depression Assessment [facility] Start: 10-29-2022 [facility] Start: 08-07-2022 Iv infusion hydration initial 31 min-1 hour HYDRATION IV INFUSION INIT [facility] Start: 04-26-2022 Electrocardiographic procedure [facility] Work Phone: Start: 03-20-2022 Patient discharge [facility] Work Phone: Start: 03-20-2022 Referral to occupational therapist [facility] Work Phone: Start: 03-20-2022 Referral to service [facility] Work Phone: Start: 03-19-2022 Ambulation without limitation [facility] Work Phone: Start: 03-19-2022 Assessment of risk of venous thromboembolism [facility] Work Phone: Start: 03-19-2022 Insertion of catheter into peripheral vein [facility] Work Phone: Start: 03-19-2022 Oxygen therapy [facility] Work Phone: Start: 03-19-2022 Providing care according to standard [facility] Work Phone: Start: 03-19-2022 [facility] Work Phone: Start: 03-19-2022 Admission procedure [facility] Work Phone: Start: 03-19-2022 Following clinical pathway protocol [facility] Work Phone: Start: 03-19-2022 Bacteria identified in Blood by Culture Blood Culture [facility] Work Phone: Start: 03-19-2022 Bacteria identified in Urine by Culture Urine Culture [facility] Work Phone: Start: 03-19-2022 Urine culture Urine Culture [facility] Work Phone: Start: 03-19-2022 Patient referral to dietitian [facility] Work Phone: Start: 03-02-2022 Enteric precautions [facility] Work Phone: Start: 01-07-2022 Patient discharge [facility] Work Phone: Start: 01-06-2022 Care regimes management [facility] Work Phone: Start: 01-06-2022 Notification of physician [facility] Work Phone: Start: 01-06-2022 [facility] Work Phone: Start: 01-04-2022 Following clinical pathway protocol [facility] Work Phone: Start: 01-04-2022 Ambulation without limitation [facility] Work Phone: Start: 01-04-2022 Assessment of risk of venous thromboembolism [facility] Work Phone: Start: 01-04-2022 Insertion of catheter into peripheral vein [facility] Work Phone: Start: 01-04-2022 Oxygen therapy [facility] Work Phone: Start: 01-04-2022 Providing care according to standard [facility] Work Phone: Start: 01-04-2022 Referral to gastroenterology service [facility] Work Phone: Start: 01-04-2022 [facility] Work Phone: Start: 01-04-2022 Catheterization of vein [facility] Work Phone: Start: 01-04-2022 Admission procedure [facility] Work Phone: Start: 01-04-2022 Egd transoral biopsy single/multiple EGD BIOPSY SINGLE/MULTIPLE [facility] Work Phone: Start: 01-04-2022 Egd transoral control bleeding any method EGD CONTROL BLEEDING ANY [facility] Work Phone: Start: 01-04-2022 Enteric precautions [facility] Work Phone: Start: 01-04-2022 Patient referral to dietitian [facility] Work Phone: Start: 05-13-2021 Glaucoma screening Dilated Retinal Exam [facility] Start: 05-13-2021 Hepatitis C antibody, confirmatory test Dilated Retinal Exam [facility] Start: 11-08-2020 Annual PCP Team Chronic Disease Visit Annual PCP Team Chronic Disease Visit [facility] Start: 10-06-2020 Creatinine monitoring Creatinine monitoring [place], [place] Start: 10-06-2020 Potassium monitoring Potassium monitoring [place], [place] Start: 2020 Hepatitis B Vaccine (1 of 3 - Risk 3-dose series) Hepatitis B Vaccine (1 of 3 - Risk 3-dose series) [facility] Start: 2020 RSV Vaccine (1 - 1-dose 60+ series) RSV Vaccine (1 - 1-dose 60+ series) [facility] Start: 2020 RSV Vaccine (1 - Risk 60-74 years 1-dose series) RSV Vaccine (1 - Risk 60-74 years 1-dose series) [facility] Start: 02-17-2020 3 comp foot exam completed [facility] Start: 02-17-2020 Diabetic foot examination [facility] Start: 07-14-2019 Hepatitis B screening Urine Albumin:Creatinine Ratio [facility] Start: 07-14-2019 Hepatitis B surface antibody level LDL Cholesterol [facility] Start: 07-01-2019 Influenza vaccination Flu vaccine (#1) [place], [place] Start: 06-06-2019 Hemoglobin A1c measurement HbA1C [facility] Start: 06-06-2019 Hemoglobin A1c/Hemoglobin.total in Blood HbA1C [facility] Start: 11-21-2018 Colonoscopy Colonoscopy [facility] Start: 11-21-2018 Colorectal Cancer Screening Colorectal Cancer Screening [facility] Start: 11-21-2018 Screening for malignant neoplasm of colon [facility] Start: 2015 Prostate Cancer Screening Discussion Prostate Cancer Screening Discussion [facility] Start: 2015 Prostate specific antigen measurement Prostate Cancer Screening Discussion [facility] Start: 06-08-2014 Fecal Occult Blood Fecal Occult Blood [facility] Start: 06-08-2014 Screening for malignant neoplasm of colon Fecal Occult Blood [facility] Start: 07-22-2012 [facility]neumococcal vaccination [facility] Start: 07-22-2012 Pneumococcal Vaccine: 50+ (2 of 2 - PCV) Pneumococcal Vaccine: 50+ (2 of 2 - PCV) [facility] Start: 2010 Colon cancer screen colonoscopy Colon cancer screen colonoscopy [place], [place] Start: 2010 Shingles Vaccine (1 of 2) Shingles Vaccine (1 of 2) [place] Start: 2010 Shingrix Vaccine (1 of 2) Shingrix Vaccine (1 of 2) [facility] Start: 2005 Cologuard (FIT-DNA) Cologuard (FIT-DNA) [facility] Start: [address] Colonography [facility] Start: 2005 Screening for malignant neoplasm of colon [facility] Start: 2005 Sigmoidoscopy Sigmoidoscopy [facility] Start: 2000 Diabetes screen Diabetes screen [place], [place] Start: 1978 Annual PCP Team Chronic Disease Visit Annual PCP Team Chronic Disease Visit [facility] Start: 1978 Anxiety Screening Anxiety Screening [facility] Start: 1978 BP Controlled (<130/80) BP Controlled (<130/80) [facility] Start: 1978 Depression Screening Depression Screening [facility] Start: 1978 HIV Screening HIV Screening [facility] Start: 1978 HIV screening HIV Screening [facility] Start: 1975 HIV screen HIV screen [place], [place] Start: 1971 DTaP/Tdap/Td vaccine (1 - Tdap) DTaP/Tdap/Td vaccine (1 - Tdap) [place] Start: 1970 Lipid screen Lipid screen [place], [place] Start: 1960 Hepatitis C screen Hepatitis C screen [place] Acetone [Presence] i n Serum or Plasma [facility] Amphetamine [Mass/vo lume] in Urine [facility] Benzodiazepine measu rement, urine [facility] Bilirubin measurement, urine [facility] C. difficile DNA Amplification C. difficile DNA Amplification [facility] Clostridioides diffi cile DNA [Presence] in Unspecified specimen by IOANA with probe detection [facility] Cocaine measurement, urine [facility] Gastrointestinal pat hogens panel - Stool by IOANA with probe detection [facility] Hemoglobin [Presence ] in Urine [facility] Initiate Oxygen Ther apy Protocol Initiate Oxygen Therapy Protocol Respiratory Care Routine Daily until discontinued starting 10/05/2019 [place] Comment on above: Daily until discontinued starting 2018 Measurement of 3,4-methylenedioxymethampheta mine in urine [facility] Measurement of keton es in urine using dipstick [facility] Methadone measurement, urine [facility] Microscopic urinalysis [facility] Ova and parasites id entified in Unspecified specimen by Light microscopy [facility] Patient Education [facility] Work Phone: Patient referral [facility] Work Phone: pH of Urine [facility] pH of Urine [facility] Phencyclidine [Prese nce] in Urine [facility] POCT Glucose [facility] [place] Comment on above: As Needed until discontinued starting 4X Daily (AC & HS) u ntil discontinued starting 10/06/2019 Removal impacted cer umen irrigation/lvg unilat AMBULATORY EAR LAVAGE/IRRIGATION Procedures Routine Bilateral impacted cerumen Ordered: 05/10/2024 [facility] Work Phone: Comment on above: Ordered: 05/10/2024 Specific gravity of Urine [facility] Urinalysis, blood, qualitative [facility] Urine barbiturate measurement [facility] Urine cannabinoid measurement [facility] Urine culture [facility] Urine dipstick for glucose [facility] Urine dipstick for l eukocyte esterase [facility] Urine dipstick for nitrite [facility] Urine dipstick for protein [facility] Urine examination [facility] Urine microscopy: ep ithelial cells [facility] Urine Microscopy: white cells [facility] Urine opiate measurement [facility] Urobilinogen [Presen ce] in Urine [facility] Immunizations Immunization Date Immunization Notes Care Provider Fa cility 11-07-2021 Covid (Pfizer) No Primary Ca re Physician [facility] 04-23-2021 Covid (Moderna) No Primary C are Physician [facility] 03-26-2021 Covid (Moderna) No Primary C are Physician [facility] 11-08-2019 influenza virus vacc ine, unspecified formulation Jimmy Ramos APRN.CNP Work Phone: [facility] 08-08-2012 tetanus and diphther ia toxoids, adsorbed, preservative free, for adult use (2 Lf of tetanus toxoid and 2 Lf of diphtheria toxoid) Jimmy Ramos APRN.CNP Work Phone: [facility] 07-22-2011 pneumococcal polysaccharide vaccine, 23 valent Jimmy Ramos APRN.[employer] Work Phone: [facility] Payers Date Payer Category Payer Self-pay [id number] 2023 [facility] [id number] 2023 Unknown [id number] 2022 Medicaid [id number] 2013 Unknown [id number] 2013 Unknown [id number] Unknown [id number] Unknown [id number] Unknown [id number] Unknown [id number] Unknown [id number] Unknown [id number]. 462 Unknown [id number] Unknown [id number] 462 Unknown [id number] 462 Unknown [id number] 462 Unknown [id number] 462 Unknown [id number] 462 Unknown [id number] Unknown [id number] Unknown [id number] 462 Social History Date Type Detail Facility Start: 10-06-2019 End: 04-21-2025 Tobacco smoking status KSIS Never smoker [facility] Start: 10-06-2019 Alcohol intake Ex-drinker (finding) [place] Start: 10-06-2019 Alcohol Comment Last drinking 1993, Hx EtOH 10 years, never attended AA program [place], [place] Start: 1960 Sex Assigned At Not on file [place] Start: 03-02-2022 End: 03-09-2024 Tobacco smoking status KSIS Unknown if ever smoked [facility] Start: 05-16-2021 Rare [place] [facility] Start: 11-25-2020 None [place] [facility] Start: 11-24-2020 Alone [place] [facility] Start: 05-16-2021 Non-smoker [facility] Start: 1960 Sex Assigned At Male [facility] Start: 08-18-2023 Tobacco use and exposure Former smokeless tobacco user [facility] End: 07-01-1978 History of tobacco use User of smokeless tobacco [facility] Start: 08-18-2023 End: 12-14-2024 Alcohol intake Current non-drinker of alcohol (finding) [facility] Start: 10-05-2020 End: 08-18-2023 History of Social function [facility] Start: 10-05-2020 End: 08-18-2023 Tobacco use panel [facility] Adult Depression Screening Assessment 5 [facility] Start: 08-18-2023 Tobacco Comment Quit when he s wallowed a wad of chew playing baseball! [facility] Start: 02-16-2025 Sex Male (finding) [facility] Medical Equipment Procedure Code Equipment Code Equipment Origin al Text Equipment Identifier Dates [id number], [id number] Start: 09-16-2017 Comment on above: Test blood sugar(s) 4 times daily. Dx: 250.02. InsulinDependent: Yes Use once daily with Lantus Goals Date Patient Goal Desired Activity /State Functional Status Date Assessment Result Facility 03-20-2022 Functional status Up ad hailee [facility] Work Phone: 01-07-2022 Functional status Ambulates [facility] Work Phone: 03-17-2015 Are you deaf, or do you have serious difficulty hearing No 03/17/2015 2:45 PM EDT Chantelle Jarrett Ma No [facility] 03-17-2015 Are you blind, or do you have serious difficulty seeing, even when wearing glasses No 03/17/2015 2:45 PM EDT Chantelle Jarrett Ma No [facility] 03-17-2015 Do you have serious difficulty walking or climbing stairs No 03/17/2015 2:45 PM EDT Chantelle Jarrett Ma No [facility] 03-17-2015 Do you have difficul ty dressing or bathing No 03/17/2015 2:45 PM EDT Chantelle Jarrett Ma No [facility] 03-17-2015 Because of a physica l, mental, or emotional condition, do you have difficulty doing errands alone such as visiting a physician's office or shopping No 03/17/2015 2:45 PM EDT Chantelle Jarrett Ma No [facility] Mental Status Date Assessment Result Facility 02-16-2025 Cognitive function Follows Commands;Drows y [facility] Work Phone: 12-08-2024 Cognitive function Awake;Alert;Appropriat e [facility] Work Phone: 10-30-2024 Cognitive function Awake;Alert;Appropriat e [facility] Work Phone: 10-19-2024 Cognitive function Awake;Alert;A ppropriate;Fol lows Commands [facility] Work Phone: 02-07-2024 Cognitive function Level Of Cons ciousness Awake;Alert;Appropriate;Fol lows Commands [facility] Work Phone: 01-26-2024 Cognitive function Level Of Cons ciousness Awake;Alert;Appropriate;Fol lows Commands [facility] Work Phone: 12-25-2023 Cognitive function Level Of Cons ciousness Awake;Alert;Appropriate;Fol lows Commands [facility] Work Phone: 12-08-2023 Cognitive function Level Of Cons ciousness Awake;Alert;Appropriate;Fol lows Commands [facility] Work Phone: 11-22-2023 Cognitive function Level Of Cons ciousness Awake;Alert;Follows Commands [facility] Work Phone: 07-29-2023 Cognitive function Level Of Cons ciousness Awake;Alert;Appropriate;Fol lows Commands [facility] Work Phone: 12-10-2022 Cognitive function Level Of Cons ciousness Awake;Alert;Appropriate;Fol lows Commands [facility] Work Phone: 10-30-2022 Cognitive function Level Of Cons ciousness Awake;Alert;Appropriate;Fol lows Commands;Drowsy [facility] Work Phone: 08-07-2022 Cognitive function Level Of Cons ciousness Awake;Alert;Appropriate;Fol lows Commands [facility] Work Phone: 03-20-2022 Cognitive function Level Of Cons ciousness Drowsy [facility] Work Phone: 03-19-2022 Cognitive function Cooperative [facility] Work Phone: 03-19-2022 Cognitive function Level Of Cons ciousness Awake;Appropriate;Follows Commands [facility] Work Phone: 01-06-2022 Cognitive function Voice/Name [facility] Work Phone: 03-17-2015 Because of a physica l, mental, or emotional condition, do you have serious difficulty concentrating, remembering, or making decisions No 03/17/2015 2:45 PM EDT Chantelle Jarrett Ma No [facility] Clinical Notes 10-13-2015 to 04-21-2025 Ion Alfaro VIDEO SYSTEMS ENGINEER.[facility] - 12/14/2024 9:32 AM ESTReed, [facility] - 05/10/2024 8:10 PM EDTReed, [facility] - 05/10/2024 8:10 PM EDRosa Huitron APRN.[facility] - 05/10/2024 7:47 PM EDT Note Date & Type Note Facility 04-21-2025 Discharge summary [facility] 04-21-2025 Radiology Diagnostic study note [facility] Imaging Services [address], [place] [address] Knee 4 or More Views MR#: [id number] Acct: [id number] Name: JERALD YODER Rep #: [id number] : 1960 M 65 From: Pet er Peer DO PCP: Care Physician,No Primary Status: REG ER Study:Knee 4 or More Views Date of Exam: 04/21/25 Exam# [id number] Ordering Dr: Zuleyka Calle MD PROCEDURE: KNEE 4 OR MORE VIEWS 04/21/2025 REASON FOR EXAM: INJURY/PAIN Initial encounter TECHNIQUE: KNEE 4 OR MORE VIEWS COMPARISON: None. FINDINGS: Bones: No fracture. No dislocation. Joints: Cartilage thinning and periarticular osteophytes indicate osteoarthritis Effusion: None. Soft tissues: Unremarkable Other: RAD/Knee 4 or More Views IMPRESSION: No acute process detected. Reading Location: [facility] CC: Dr. Ar Calle MD; No Primary Care Physician ~ Powered Bridge Specialist: Signed [facility] 02-16-2025 Radiology Diagnostic study note [facility] 12-14-2024 Note HNO ID: [id number] Author: ION ALFARO APRN.TAMY Service: ? Author Type: Nurse Practitioner Type: Progress Notes Filed: 12/14/2024 09:40 Note Text: This note was created using StarSightingster. Subjective Jerald Yoder is a 64 year [...] CETIRIZINE 10 MG TABLET Ion Alfaro APRN.CNP [facility] 12-14-2024 History of Present illness Narrative This note was created using Tripwareriter. Subjective Jerald Yoder is a 64 year [...] - CETIRIZINE 10 MG TABLET Ion Alfaro APRN.UNIFORMER documented in this encounter [facility] 05-10-2024 Nurse Note Ambulatory Ear Lavage Pre-treatment: Warm water Treatment: Both ears Equipment and Irrigation solution and Volume used: Single use syringe with single use irrigation tip Return flow appearance: Brown Patient tolerated procedure: yes Tympanic membrane assessment: Tympanic membrane assessed by LIP pre-procedure Josef Lee APRN [facility] 05-10-2024 Nurse Note Ambulatory Ear Lavage Pre-treatment: Warm water Treatment: Both ears Equipment and Irrigation solution and Volume used: Single use syringe with single use irrigation tip Return flow appearance: Brown Patient tolerated procedure: yes Tympanic membrane assessment: Tympanic membrane assessed by LIP pre-procedure Josef Lee APRN documented in this encounter [facility] 05-10-2024 Note HNO ID: [id number] Author: ROSA QUINONES APRN.[facility] Service: ? Author Type: Nurse Practitioner Type: Progress Notes Filed: 05/11/2024 08:47 Note Text: This note was created using Tripwareriter. Subjective Jerald Yoder is a 64 year [...] or chills Denies using homeopathic or OTC GRAPE PRUNER. Requesting ear irrigation. The history is provided by the patient. No concrete analyst was used. Ear Problem There is pain [...] Colon polyp 2013 adenomatous Coronary artery disease [place] in 1994 Diabetic neuropathy (HCC) DM (diabetes [...] and sore throat. (more content not included)... [facility] 05-10-2024 History of Present illness Narrative This note was created using Tripwareriter. Subjective Jerald Yoder is a 64 year [...] or chills Denies using homeopathic or OTC GRAPE PRUNER. Requesting ear irrigation. The history is provided by the patient. No concrete analyst was used. 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 - AMBULATORY EAR LAVAGE/IRRIGATION Rosa Quinones APRN.UNIFORMER documented in this encounter [facility] 02-07-2024 Discharge summary Note Date/Time February 07, 2024 9:10 pm [facility] Medical Records Department [address] [place] [address] Emergency Department Summary 02/07/24 MR#: [id number] Acct: [id number] Name: JERALD YODER Rep #:[id number] : [...] nausea or vomiting. Denies diarrhea or constipation. [facility] Medical History Back pain due to injury [...] 73.2 H Lymph % (Auto) 17.4 L [place] % (Auto) 5.4 Eos % (Auto) 3.1 [...] Clarity Clear Urine pH 6.0 Ur Specific [place] 1.015 Urine Protein 15 H Urine Glucose [...] (Auto) Neut % (Auto) Lymph % (Auto) [place] % (Auto) Eos % (Auto) Baso % (Auto) Absolute Neuts (auto) Absolute Lymphs (auto) Nucleated RBC % Sodium Potassium Chloride Carbon Dioxide Anion Gap BUN Creatinine Estim Creat Clear Calc Est GFR (MDRD) Af Amer Est GFR (MDRD) Non-Af BUN/Creatinine Ratio Glucose Calcium Total Bilirubin AST ALT Alkaline Phosphatase Total Protein Albumin Globulin Albumin/Globulin Ratio Urine Color Urine Clarity Urine pH Ur Specific [place] Urine Protein Urine Glucose (UA) Urine Ketones [...] your Primary Care Provider. Call [facility] ([phone]) or report to the closest Emergency Room. Call 911 if necessary. 02/08/2411 <Electronically signed by Keenan Wu DO> Cosigner Signature (if applicable): CC: Dr. Linden Chavez DO ~ Signed [facility] Work Phone: 1(888) 322-584601-23-2024 Discharge summary Author Barry Mathew [facility] November 22, 2023 5:13pm Note Date/Time November 22, 2023 3 :08pm [facility] Medical Records Department [address] [place] [address] Emergency Department Summary 11/22/23 MR#: [id number] Acct: [id number] Name: JERALD YODER Rep #:[id number] : [...] states that while he was at his glbzbix-ml-gzd's, he felt weak and fell, but did not hurt himself. He presents via EMS with generalized weakness. He states he has been eating and drinking well, to the point where he had 4 hotdogs prior to arrival. He denies any chestpain or shortness of breath. No exacerbating or alleviating factors. [facility] Medical History Back pain due to injury [...] not feel that he requires observation. His khhsmnc-zi-fjm is here. They are comfortable with discharge. [...] 70.9 H Lymph % (Auto) 18.9 L [place] % (Auto) 5.0 Eos % (Auto) 4.5 [...] Sl. Cloudy Urine pH 5.0 Ur Specific [place] 1.020 Urine Protein 15 H Urine Glucose [...] your Primary Care Provider. Call [facility] ([phone]) or report to the closest Emergency Room. Call 911 if necessary. 11/22/231712 <Electronically signed by Barry Mathew MD> Cosigner Signature (if applicable): CC: Dr. Linden Chavez, ~ Signed [facility] Work Phone: 1(423) 733-338011-30-2023 Discharge summary Author Barry [facility] September 29, 2023 11:33pm Note Date/Time September 29, 2023 9:05pm [facility] Medical Records Department [address] [place] [address] Emergency Department Summary 09/29/23 MR#: [id number] Acct: [id number] Name: JERALD YODER Rep #:[id number] : 1960 63 From: Barry Mathew MD PCP: Dr. Linden Chavez DO Status:REG ER Location: ED HPI History of Present Illness Chief Complaint: Nausea/Vomiting/Diarrhea Narrative Narrative: 63-year-old male past medical history of hypertension, presents with nausea and diarrhea that he has had for the last 5 hours. He states he ate at the [employer]? and had a salad with 6 ranch [...] No chest pain or shortness of breath. [facility] Medical History Back pain due to injury [...] 78.5 H Lymph % (Auto) 13.5 L [place] % (Auto) 5.2 Eos % (Auto) 1.7 [...] your Primary Care Provider. Call [facility] ([phone]) or report to the closest Emergency Room. Call 911 if necessary. 09/29/232332 <Electronically signed by Barry Mathew MD> Cosigner Signature (if applicable): CC: Dr. Linden Chavez DO ~ Signed [facility] Work Phone: 1(298) 348-108310-19-2023 History of Present illness Narrative* Jimmy Ramos, SANDRA.UNIFORMER - 08/18/2023 4:12 PM EDT Subjective HPI [...] Colon polyp 2013 adenomatous Coronary artery disease [place] in 1994 Diabetic neuropathy (HCC) DM (diabetes [...] daily before breakfast. flash glucose scanning reader (ASSURED PHARMACYSTYLE CLAUDIA 14 DAY READER) misc 1 Device [...] of care. This note was generated using Elyssafregori software. It may contain errors in wording, punctuation, or spelling. Jimmy Ramos APRN.UNIFORMER [facility] Wu [facility] December 11, 2022 9:32pm Note Date/Time December 11, 2022 4:55pm [facility] Medical Records Department [address] [place] [address] Emergency Department Summary 12/11/22 MR#: [id number] Acct: [id number] Name: JERALD YODER Rep #:[id number] : [...] Hassan but has not made an appointment. [facility] Medical History Back pain due to injury [...] % (Auto) 67.1 Lymph % (Auto) 22.4 [place] % (Auto) 6.1 Eos % (Auto) 3.4 [...] Color Urine Clarity Urine pH Ur Specific [place] Urine Protein Urine Glucose (UA) Urine Ketones [...] (Auto) Neut % (Auto) Lymph % (Auto) [place] % (Auto) Eos % (Auto) Baso % [...] Clarity Clear Urine pH 6.0 Ur Specific [place] 1.015 Urine Protein 15 H Urine Glucose [...] 17:32 EST Reading Location ID and State: [address] [place] [address] Tel [phone], Service support , Discharge Plan Triage Chief [...] Referrals: Linden Chavez DO [Med Staff - Acquisition Advisor] - As soon as possible Disposition Disposition: Home, Self Care What to do if you have Problems For any increased pain, shortness of breath, bleeding, nausea or vomiting, chestpain, or any unexpected problems, contact your Primary Care Provider. Call [facility] ([phone]) or report to the closest Emergency Room. Call 911 if necessary. 12/11/222131 <Electronically signed by Keenan Wu DO> Cosigner Signature (if applicable): CC: Dr. Iván Hassan MD ~ Signed [facility] Work Phone: [phone]) 836-170901-26-[address] Calle [facility] November 25, 2022 3:03pm Note Date/Time November 25, 2022 1 :30pm [facility] Medical Records Department [address] [place] [address] Emergency Department Summary 11/25/22 MR#: [id number] Acct: [id number] Name: JERALD YODER Rep #:[id number] : [...] infectious symptoms. He denies chest pain, dyspnea, [place] exertion, orthopnea PND. He does endorse crampy [...] on your insurance card issued to you [facility] 2. Increase fluid intake today 3. You need to take your medication as prescribed and you need to be compliant with your diet Disposition Disposition: Home, Self Care What to do if you have Problems For any increased pain, shortness of breath, bleeding, nausea or vomiting, chestpain, or any unexpected problems, contact your Primary Care Provider. Call [facility] ([phone]) or report to the closest Emergency Room. Call 911 if necessary. 11/25/22 1503 <Electronically signed by Ar Calle MD> Cosigner Signature (if applicable): CC: No Primary Care Physician ~ Signed [facility] Work Phone: [phone]) 236-345012-14-2015 History of Past illness Narrative* Problem Noted Date Diagnosed Date Resolved Date Ankle fracture, left 10/13/2015 017 COPD (chronic obstructive pulmonary disease) 1 11/17/2019 documented as of this encounter (statuses as of 08/18/2023) [facility]. Chavez [facility] January 18, 2023 9:52am Note Date/Time January 18, 2023 8:1 7am [facility] Medical Records Department [address] [place] [address] Emergency Department Summary 01/18/23 MR#: [id number] Acct: [id number] Name: JERALD YODER Rep #:[id number] : [...] he feels lightheaded when he stands up. [facility] Medical History Back pain due to injury [...] history of alcohol abuse. Medications: Reviewed in [employer], the nurse had just gone over them [...] 71.9 H Lymph % (Auto) 18.0 L [place] % (Auto) 6.8 Eos % (Auto) 2.6 [...] your Primary Care Provider. Call [facility] ([phone]) or report to the closest Emergency Room. Call 911 if necessary. 01/18/23 0952 <Electronically signed by Bernard Chavez MD> Cosigner Signature (if applicable): CC: Dr. Linden Chavez DO ~ Signed [facility] Work Phone: Discharge summary [facility] March 08, 2024 8:59am Note Date/Time March 08, 2024 8:14am [facility] Medical Records Department [address] [place] [address] Emergency Department Summary 03/08/24 MR#: [id number] Acct: [id number] Name: JERALD YODER Rep #:[id number] : 1960 63 From: Jhoann Lemons DO PCP: Dr. Linden Chavez DO [...] therefore comes to the hospital for evaluation. [facility] Medical History Back pain due to injury [...] % (Auto) 65.4 Lymph % (Auto) 22.8 [place] % (Auto) 6.9 Eos % (Auto) 3.9 [...] 7:52 EDT Reading Location ID and State: [facility] [place] , Service support , Acute abdominal series [...] your Primary Care Provider. Call [facility] ([phone]) or report to the closest Emergency Room. Call 911 if necessary. 03/08/24 0859 <Electronically signed by Johann Lemons DO> Cosigner Signature (if applicable): CC: Dr. Linden Chavez DO ~ Signed [facility] Work Phone: Discharge summary Author Ar Calle [facility] Note Date/Time April 21, 2025 1:09 pm [facility] Medical Records Department [address] [place] [address] Emergency Department Summary 04/21/25 MR#: [id number] Acct: [id number] Name: JERALD YODER Rep #:[id number] : [...] Prior similar symptoms: No Recent [facility]ness[facility] Medical History Partial traumatic amputation of left [...] IMPRESSION: No acute process detected. Reading Location: [facility] Treatment and Re-Evaluation Narrative: Patient [...] left knee, initial encounter, Coronary atherosclerosis of [place] coronary artery, Essential hypertension, HLD (hyperlipidemia), History [...] your insurance card issued to you by [employer] Print Language: Guatemalan Disposition Disposition: Home, Self Care What to do if you have Problems For any increased pain, shortness of breath, bleeding, nausea or vomiting, chestpain, or any unexpected problems, contact your Primary Care Provider. Call [facility] ([phone]) or report to the closest Emergency Room. Call 911 if necessary. 04/21/25 1309 <Electronically signed by Ar Calle MD> Cosigner Signature (if applicable): CC: No Primary Care Physician ~ Signed [facility] Work Phone: Evaluation note* Diagnosis Onset Date Resolution Status Abdominal pain resolved Diarrhea resolved Gastroparesis resolved Hyperglycemia resolved [facility] Work Phone: Evaluation note* Diagnosis Onset Date Resolution Status Abdominal pain resolved Diarrhea resolved Gastroparesis resolved Hyperglycemia resolved Acute diarrhea acute Generalized weakness acute Transient hypotension acute [facility] Work Phone: Evaluation note* Diagnosis Onset Date Resolution Status Abdominal pain resolved Diarrhea resolved Gastroparesis resolved Hyperglycemia resolved Acute diarrhea resolved Generalized weakness resolve d Transient hypotension resolv ed [facility] Work Phone: Evaluation note* Diagnosis Onset Date Resolution Status Acute diarrhea resolved Generalized weakness resolve d Transient hypotension resolv ed [facility] Work Phone: Evaluation noteNo assessment information available [facility] Work Phone: Evaluation note* Diagnosis Bilateral impacted cerumen- Primary Impacted cerumen documented [facility] [place] [facility]* Diagnosis Bilateral impacted cerumen- Primary Impacted cerumen documented in this encounter [facility] [place] [facility]* Diagnosis Eustachian tube dysfunction, bilateral- Primary [facility] Work Phone: [facility] Dis[facility] instructionsWLake[facility] Work Phone: [facility] instructions[facility] Work Phone: Hospital Discharge instructions Additional Instructions 1. The name of your doctor is located on your insurance card issued to you from [facility] 2. Increase fluid intake today 3. You need to take your medication as prescribed and you need to be compliant with your dietWLakeHealth [facility] Work Phone: Hospital Discharge instructions Additional Instructions Blood glucose 250. Labs stable EKG normal. Continue oral fluids. Follow-up with your doctor to restart heart your medications.[facility] Work Phone: Hospital Discharge instructions Additional Instructions Laboratory studies stable glucose 340s with no signs of DKA. Insulin with improvement down to 130s. Continue oral fluids for hydration. Follow-up with your doctor. Return if worsening symptoms.[facility] Work Phone: Hospital Discharge instructions [...] If you see blood return to the ER.[facility] Work Phone: Hospital Discharge instructions Additional Instructions Your CT showed no broken bones. Use ice and take ovvb-dur-ssegjuv Tylenol and Motrin as needed for pain.[facility] Work Phone: Hospital Discharge instructions Additional Instructions Your CT scan showed no sign of bowel blockage. It did show changes consistent with constipation . Take MiraLAX as directed every day to prevent these recurrent issues . please keep yourself well-hydrated and continue to take your diabetic medication as directed. Return to the ER should you have any further concerns.[facility] Work Phone: Hospital Discharge instructions Additional Instructions When you get home drink half the bottle of magnesium citrate. If you do not have a bowel movement in 4 hours finished the bottle. Once the magnesium citrate is stimulated bowel movement continue to the MiraLAX daily to help with recurrent bowel movements and resolve your constipation.[facility] Work Phone: Hospital Discharge instructions [...] the ER should you have any further concernsWooParkview [facility] Work Phone: Hospital Discharge instructions Additional Instructions Thank you for trusting us with your care today! Please take Tylenol (2 pills, 650 mg), ibuprofen (2 pills, 400 mg) every 6 hours as needed for pain and fever control. Please return to the emergency department if your symptoms change or worsen. Please follow with your primary care physician for further outpatient evaluation and management.[facility] Work Phone: Hospital Discharge instructions Additional Instructions Call your doctor for follow-up. The name of your doctor is located on your insurance card issued to you by [facility] Work Phone: Reason for referral (narrative)No reason for referral information availableSouthview Medical Center Work Phone: Hospital Course * Zahira Myrick [...] DISCHARGE MEDICATIONS: Jerald Yoder Home Medication Instructions IFEOMA:[id number] Printed on:10/06/19 1522 Medication Information aspirin 81 [...] Complexity: follow up within 7-14 calendar days (72912) [] Severe Complexity: follow up within 7 calendar days (92831) FOLLOW UP TESTING, PENDING RESULTS OR REFERRALS [...] at most local grocery stores, pharmacies, and [employer]-stores. ? If you have any questions about [...] be monitored and followed by the diet geotechnical engineering technician. * Vini Calloway RN - 10/06/2019 [...] FoundDocuments on File Type Date Recorded Patient Programmer Analyst Consultant Expl anation Advance Directives and Living Will Power of Sprinkler Inspector Latest Code Status on File Code Status Date Activated Date Inactivated Comments Full Code 10/06/2019 11:12 AM Full Code 10/05/2019 5:27 PM 10/06/2019 11:12 AM Advance Directive Response Recorded Date/ Time Advance Directives No November 30, 2016 10:29am Living Will No March 02, 2022 7: 27pm Power of Sprinkler Inspector No March 02, 2022 7:27pm Advance Directive Response Recorded Date/ Time Advance Directives No November 30, 2016 10:29am Living Will No March 19, 2022 5 :35pm Power of Sprinkler Inspector No March 19, 2022 5:35pm Advance Directive Response Recorded Date/ Time Advance Directives No November 30, 2016 10:29am Living Will No March 19, 2022 1 1:38pm Power of Sprinkler Inspector No March 19, 2022 11:38pm Advance Directive Response Recorded Date/ Time Advance Directives No November 30, 2016 10:29am Living Will No April 26, 2022 2:33pm Power of Sprinkler Inspector No April 26 2:33pm Advance Directive Response Recorded Date/ Time Advance Directives No November 30, 2016 10:29am Living Will No May 26, 2022 1:38am Power of Sprinkler Inspector No May 26 1:38am Advance Directive Response Recorded Date/ Time Advance Directives No November 30, 2016 10:29am Living Will No July 02 9:45pm Power of Sprinkler Inspector No July 02, 2022 9:45pm Advance Directive Response Recorded Date/ Time Advance Directives No November 30, 2016 10:29am Living Will No August 07 6:50pm Power of Sprinkler Inspector No August 07 6:50pm Advance Directive Response Recorded Date/ Time Advance Directives No November 30, 2016 9:29am Living Will No September 18 10:57am Power of Sprinkler Inspector No September 18, 2022 10:57am Advance Directive Response Recorded Date/ Time Advance Directives No November 30, 2016 9:29am Living Will No November 25 2:07pm Power of Sprinkler Inspector No November 25, 2022 2:07pm Advance Directive Response Recorded Date/ Time Advance Directives No November 30, 2016 9:29am Living Will No December 10, 2 023 9:57am Power of Sprinkler Inspector No December 10, 2022 9:57am Advance Directive Response Recorded Date/ Time Advance Directives No November 30, 2016 9:29am Living Will No December 11, 2 023 4:20pm Power of Sprinkler Inspector No December 11, 2022 4:20pm Advance Directive Response Recorded Date/ Time Advance Directives No November 30, 2016 10:29am Living Will No January 18, 2023 8:03am Power of Sprinkler Inspector No January 18 8:03am Advance Directive Response Recorded Date/ Time Advance Directives No November 30, 2016 10:29am Living Will No March 07, 2023 1: 12am Power of Sprinkler Inspector No March 07, 2023 1:12am Advance Directive Response Recorded Date/ Time Advance Directives No November 30, 2016 10:29am Living Will No May 12, 2023 3:57pm Power of Sprinkler Inspector No May 12 3:57pm Advance Directive Response Recorded Date/ Time Advance Directives No November 30, 2016 10:29am Living Will No August 26 5:10am Power of Sprinkler Inspector No August 26, 2023 5:10am Advance Directive Response Recorded Date/ Time Advance Directives No November 30, 2016 9:29am Living Will No September 29, 2 023 8:45pm Power of Sprinkler Inspector No September 29, 2023 8:45pm Advance Directive Response Recorded Date/ Time Advance Directives No November 30, 2016 9:29am Living Will No September 30 11:40pm Power of Sprinkler Inspector No September 30, 2023 11:40pm Advance Directive Response Recorded Date/ Time Advance Directives No November 30, 2016 9:29am Living Will No November 22 2:25pm Power of Sprinkler Inspector No November 22, 2023 2:25pm Advance Directive Response Recorded Date/ Time Advance Directives No November 30, 2016 9:29am Living Will No December 08 12:56pm Power of Sprinkler Inspector No December 08, 2023 12:56pm Advance Directive Response Recorded Date/ Time Advance Directives No November 30, 2016 9:29am Living Will No December 18 4:23pm Power of Sprinkler Inspector No December 18, 2023 4:23pm Advance Directive Response Recorded Date/ Time Advance Directives No November 30, 2016 9:29am Living Will No December 25 8:47am Power of Sprinkler Inspector No December 25, 2023 8:47am Advance Directive Response Recorded Date/ Time Advance Directives No November 30, 2016 10:29am Living Will No December 25 9:47am Power of Sprinkler Inspector No December 25, 2023 9:47am Advance Directive Response Recorded Date/ Time Advance Directives No November 30, 2016 10:29am Living Will No January 26, 2024 11:41pm Power of Sprinkler Inspector No January 25 11:41pm Advance Directive Response Recorded Date/ Time Advance Directives No November 30, 2016 10:29am Living Will No February 07, 2024 7:17pm Power of Sprinkler Inspector No February 06 7:17pm Advance Directive Response Recorded Date/ Time Advance Directives No November 30, 2016 10:29am Living Will No March 08, 2024 6: 24am Power of Sprinkler Inspector No March 08, 2024 6:24am Advance Directive Response Recorded Date/ Time Advance Directives No November 30, 2016 10:29am Living Will No March 09, 2024 1 :35am Power of Sprinkler Inspector No March 09, 2024 1:35am Advance Directive Response Recorded Date/ Time Living Will No October 19 4:56am Do you have a Healthcare Power of Sprinkler Inspector? No October 19, 2024 4:56am Living Will No December 20 6:56pm Do you have a Healthcare Power of Sprinkler Inspector? No December 20, 2024 6:56pm Living Will No October 30 1:19am Do you have a Healthcare Power of Sprinkler Inspector? No October 30, 2024 1:19am Living Will No November 27 2:38pm Do you have a Healthcare Power of Sprinkler Inspector? No November 27, 2024 2:38pm Living Will No December 08 1:33pm Do you have a Healthcare Power of Sprinkler Inspector? No December 08, 2024 1:33pm Living Will No December 27, 025 2:11am Do you have a Healthcare Power of Sprinkler Inspector? No December 27, 2024 2:11am Living Will No February 16, 2025 4:01am Do you have a Healthcare Power of Sprinkler Inspector? No February 16, 2025 4:01am Advance Directives No November 30, 2016 10:29am Advance Directive Response Recorded Date/ Time Living Will No December 20 025 6:56pm Do you have a Healthcare Power of Sprinkler Inspector? No December 20, 2024 6:56pm Living Will No November 27 2:38pm Do you have a Healthcare Power of Sprinkler Inspector? No November 27, 2024 2:38pm Living Will No December 08 1:33pm Do you have a Healthcare Power of Sprinkler Inspector? No December 08, 2024 1:33pm Living Will No December 27, 2 025 2:11am Do you have a Healthcare Power of Sprinkler Inspector? No December 27, 2024 2:11am Living Will No February 16, 2025 4:01am Do you have a Healthcare Power of Sprinkler Inspector? No February 16, 2025 4:01am Do you have a Healthcare Power of Sprinkler Inspector? No March 26, 2025 9:53pm Advance Directives No November 30, 2016 10:29am Advance Directive Response Recorded Date/ Time Living Will No December 27 025 2:11am Do you have a Healthcare Power of Sprinkler Inspector? No December 27, 2024 2:11am Living Will No February 16, 2025 4:01am Do you have a Healthcare Power of Sprinkler Inspector? No February 16, 2025 4:01am Do you have a Healthcare Power of Sprinkler Inspector? No March 26, 2025 9:53pm Do you have a Healthcare Power of Sprinkler Inspector? No April 21, 2025 10:50am Advance Directives No November 30, 2016 10:29am Advance Directive Response Recorded Date/ Time Living Will No February 16, 2025 4:01am Do you have a Healthcare Power of Sprinkler Inspector? No February 16, 2025 4:01am Do you have a Healthcare Power of Sprinkler Inspector? No March 26, 2025 9:53pm Do you have a Healthcare Power of Sprinkler Inspector? No April 21, 2025 10:50am Advance Directives [...] section and content) DATE CREATED AUTHOR 10/14/2019 [facility] DATE CREATED AUTHOR AUTHOR'S ORGANIZ ATION 12/16/2024 [facility] DATE CREATED AUTHOR AUTHOR'S ORGANIZ ATION 05/02/2025 [facility] Goals (unrecognized section and content) Goals may [...] 16, 2025 End: February 16, 2025 Dr. oJhann Lemons DO Emergency Provider Active Start: February [...] or prosecute any alcohol or drug abuse patient.[facility] the event this information is protected by the Federal Confidentiality of Alcohol and Drug Abuse Patient Records regulations: The Federal rules restrict any use of the information to criminally investigate or prosecute any alcohol or drug abuse patient.[facility] the event this information is protected by the Federal Confidentiality of Alcohol and Drug Abuse Patient Records regulations: The Federal rules restrict any use of the information to criminally investigate or prosecute any alcohol or drug abuse patient.[facility] Reason for Visit (unrecogniz ed section [...] BE BASED ON THE PRIMARY CLINICAL RECORDS. [facility] [a][employer] games [facility]. provides no warranty or guarantee of the accuracy or completeness of information in this document.
[2025-05-03 13:14] LABS: AST(SGOT) 14 U/L (<=37); Alanine Aminotransfer ALT/SGPT 8 U/L (<=46); Albumin, Serum 4.2 g/dL (3.4-4.8); Alkaline Phosphatase 112 U/L (40-129); Anion Gap 12 (5-15); BUN 23 mg/dL (4-19); BUN/Creat Ratio 25.5 RATIO (10-20); Calcium,Total 9.5 mg/dL (7.6-11.0); Carbon Dioxide 23.1 mmol/L (21.0-32.0); Chloride 101 mmol/L (98-108); Estimated Creatinine Clearance 104.28 ml/min (50-250); Globulin 3.1 g/dL (2.2-4.2); Glucose 215 mg/dL (70-99); Potassium 4.4 mmol/L (3.3-5.1)
[2025-05-03 13:28] VITALS: BP 105/69; PULSE 78; RESP 15; TEMP 36.3; O2SAT 98
[2025-05-03 13:35] VITALS: BP 105/69; PULSE 58; RESP 16; O2SAT 98
[2025-05-03 13:57] LABS: Mucous, Urine 0 SEEN /hpf (<or=2+); Red Blood Cells-Urine 0 SEEN /hpf (0-5); Squamous Epithelial Cells - UA 0 SEEN /hpf (0-5)
[2025-05-03 13:58] LABS: Color, Urine Yellow (Yellow); Glucose, Dipstick 250 mg/dl (Normal); Ketone-Dipstick Negative (Negative); Leukocyte Esterase-Dipstick 500 /ul (Negative); Nitrite-Dipstick Negative (Negative); Occult Blood-Urine 50 /ul (Negative); Protein-Dipstick 30 mg/dl (Negative); Specific Gravity, Urine 1.010 (1.002-1.030); Urine Bilirubin Dipstick Negative (Negative)
[2025-05-03] MEDS: Smz/Tmp Ds Tablet 1 TABLET PO (14:15)
[2025-05-03 14:16] VITALS: BP 119/77; PULSE 78; RESP 16; TEMP 36.7; O2SAT 97
== END 2025-05-03 14:17 | disposition home or self-care (01) ==
PROVIDERS: Physician Assistant; Emergency Provider Emergency Medicine; PCP Family Medicine; Visit Provider Emergency Medicine
DX: R53.1 Weakness (principal); J44.9 Chronic obstructive pulmonary disease, unspecified; E11.9 Type 2 diabetes mellitus without complications; E86.0 Dehydration; I25.10 Atherosclerotic heart disease of native coronary artery without angina pectoris; G47.30 Sleep apnea, unspecified; I25.2 Old myocardial infarction; Z95.5 Presence of coronary angioplasty implant and graft
CPT/HCPCS: 80053; 81001; 82962; 85025; 87077; 87086; 87088; 87186; 93005; 96360; 99283; A4216

== ENCOUNTER 2025-05-22 07:01 | Emergency (ER) | payer MEDICARE, MEDICAID, SELFPAY ==
[2025-05-22 07:03] VITALS: BP 143/88; PULSE 65; RESP 18; TEMP 37.1; O2SAT 95; BMI 26.6
--- OUTSIDE RECORDS SUMMARY | 2025-05-22 07:33 | XMS RPT_ITS | CCD ---
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 Antonette Dominguez Emergency Provider Dr. Vicky Mckeon Admit Provider Dr. Vicky Mckeon Other Provider Friend, Dr. Fulton Attending Provider Dr. Jayesh Perez Referring Provider Dr. Jayesh Perez Attending Provider Dr. Jayesh Perez Other Provider Dr. Live Ashley Emergency Provider [phone] Linden Jurado Admit Provider Dr. Linden [...] Attending Provider Barry Mathew MD Emergency Provider Dr. Avni Cash MD Attending Provider Dr. Avni Cash MD Emergency Provider Anna SUMMERS, Dr. Flanagan Attending Provider Anna SUMMERS, Dr. Flanagan Emergency Provider Dr. Pedro Krishnan DO Attending Provider Ariella SUMMERS, Dr. Vasquez Emergency Provider Care Physician, No Primary Primary Care Provider Unavailable Barry Mathew MD Attending Provider Barry Mathew MD Emergency Provider Dr. Avni Cash MD Attending Provider Dr. Avni Cash MD Emergency Provider Anna SUMMERS, Dr. Flanagan Attending Provider Anan SUMMERS, Dr. Flanagan Emergency Provider Cristo SUMMERS, [...] Provider Dr. Linden Chavez DO Attending Provider Dr. Pedro Krishnan DO Emergency Provider Barry Mathew Attending Unavailable Care Physician, No Primary Primary Care Unava ilable Avni Cash Attending Unavailable Care Physician, No Primary Primary Care Unava ilable Panchito Castillo Attending Unavailable Care Physician, No Primary Primary Care Unava ilable Care Physician, No Primary Primary Care Unava ilable Johann Lemons Attending Unavailable Buster Pereyra Attending Unavailable Care Physician, No Primary Primary Care Unava ilable Scott, Linden Primary Care Unavailable Scott, Linden Attending Unavailable Scott, Linden Primary Care Unavailable Scott, Linden Attending Unavailable Care Physician, No Primary Primary Care Unava ilable Zuleyka Calleo Attending Unavailable Scott, Linden Primary Care Unavailable Pedro Krishnan Attending Unavailable Scott, Linden Primary Care Unavailable Shania Disla Attending Unavailable Scott, Linden Primary Care Unavailable Johann Lemons Attending Unavailable Scott, Linden Primary Care Unavailable Adam Allen Attending Unavailable Scott, Linden Primary Care Unavailable Live Ashley Attending Unavailable Scott, Linden Primary Care Unavailable Johann Lemons Attending Unavailable Pedro Krishnan Attending Unavailable Care Physician, No Primary Primary Care Unava ilable Allergies Allergy Classification Reported Allergen(s) Allergy Type Date of Onset Reaction(s) Facility (20 sources) bee venom Propensity to adverse reactions to drug 9 [place], [place] (2 sources) diphenhydrAMINE; Translations: [DIPHENHYDRAMINE] Drug Allergy 1 [place], [place] (8 sources) Penicillins; Translations: [PENICILLINS] Propensity to adverse reactions to drug 1 [place], [place] (20 sources) diphenhydrAMINE; Translations: [diphenhydramine HCl] Drug Allergy 2 [facility] (20 sources) Penicillins Allergy to substance 2 [facility] (3 sources) diphenhydrAMINE Drug Allergy 1 [facility] Work Phone: (3 sources) Penicillins Drug Allergy 1 [facility] Work Phone: (4 sources) Bee Sting; Translations: [BEE STING] Allergy to substance 1 Swelling [facility] Work Phone: (1 source) Penicillins Drug allergy (disorder) 5 [facility] (1 source) venom-honey bee Drug allergy (disorder) 5 [facility] Medications Current Medications Medication Drug Class(es) Dates Sig (Normalized) Sig (Original) [id number] 200 actuat albuterol 0.09 mg/actuat metered dose [...] nasal spray (1 source) Corticosteroid Start: 12-14-19 25 take 1 spray(s) nasal route once daily fluticasone (FLONASE ALLERGY RELIEF) 50 mcg/actuation nasal spray Indications: Eustachian tube dysfunction, bilateral Use 1 [place] in each nostril once daily. 9.9 mL 12/14/2024 Active gabapentin 100 mg oral capsule (7 sources) Anti-epileptic Agent Start: 04-21-20 25 take 1 capsule by mouth three times daily Gabapentin 100 mg capsule Active 100 mg PO THREE TIMES A DAY 90 0 April 21, 2025 12:00am Start: 11-12-2019 take 1 capsule by mo ut once daily at bedtime gabapentin (NEURONTIN) 300 mg capsule Indications: Lumbar radiculopathy Take 1 capsule by mouth daily at bedtime for 30 days. 30 capsule 11/12/2019 Active Comment on above: Take 1 capsule by mo ut daily at bedtime for 30 days. glucagon (rdna) 1 mg injection (1 source) Antihypoglycemic Agent Start: 10-05-2019 glucagon (rDNA) injection 1 mg 150 ml glucose 50 mg/ml injection (3 sources) Start: 10-05-2019 glucose (GLUTOSE) 40 % oral gel 15 g Start: 10-05-2019 dextrose 50 % IV solution Start: 10-05-2019 dextrose 5 % s olution hydrocortisone 10 mg/ml topical cream (18 sources) Corticosteroid Start: 08-26-2023 Hydrocortisone 1 % [...] Discontinued 10 U SC EVERY EVENING 10 December 11, 2022 1:00am September 29, 2023 [...] oral tablet (20 sources) l-Thyroxine Start: 09-29-20 take 1 tablet by mouth once daily [...] (4 sources) Angiotensin Converting Enzyme Inhibitor Start: take 1 tablet by mouth once daily [...] 1 tablet by tom th once daily. metFORMIN hydrochloride 500 mg oral tablet (20 sources) Biguanide Start: 05-03-2025 take 1 tablet by mouth twice daily Metformin 500 mg tablet Active 500 mg PO TWICE A DAY 60 30 0 May 03, 2025 12:00am Start: 12-11-2022 End: 09-29-2023 take 1 tablet by mouth once daily Metformin 500 mg tablet Discontinued 500 mg PO DAILY 60 0 December 11, 2022 1:00am September 29, 2023 9:49pm Start: 01-30-2021 take 4 tablets by mo [facility] once daily metFORMIN ER (GLUCOPHAGE XR) 500 [...] 2016 12:25pm Diabetes take 4 tablets by [facility] once daily at breakfast metFORMIN (GLUCOPHAGE-XR) 500 MG extended release tablet Take 2,000 mg by mouth daily (with breakfast) 0 Active Comment on above: Take 4 tablets by mo [facility] once daily for 14 days. naproxen 500 mg oral tablet (3 sources) Nonsteroidal Anti-inflammatory Drug Start: 9 take 1 tablet by mouth twice daily at mealtime naproxen (NAPROSYN) 500 mg tablet Indications: Trapezius strain, left, initial encounter Take 1 tablet by mouth twice daily with meals. 20 tablet 09/12/2019 Active Comment on above: [facility] with [facility]. omeprazole 20 mg [...] Comment on above: Take 1 capsule by [facility] daily before breakfast for 14 days. 1/2 [...] 10-06-2019 0.9 % sodium chloride infusi on sulfamethoxazole 800 mg / trimethoprim 160 mg oral tablet (1 source) Dihydrofolate Reductase Inhibitor Antibacterial, Sulfonamide Antimicrobial Start: 05-03-2025 Sulfamethoxazole-Trimethopri m (Bactrim Ds) 800-160 mg tablet Active 1 {tbl} PO TWICE A DAY 14 7 0 May 03, 2025 12:00am (2 sources) Start: 09-29-2023 Start: 12-11-2022 End: [...] / oxyCODONE hydrochloride 5 mg oral tablet (6 sources) Opioid Agonist Start: 08-10-2024 End: 10-19-2024 [...] primary doctor cefdinir 300 mg oral capsule (6 sources) Cephalosporin Antibacterial Start: 12-27-2024 End: 02-16-2025 take 1 capsule by mouth every twelve hours Cefdinir 300 mg capsule Discontinued 300 mg PO Q12H 14 0 December 27, 2024 1:00am February 16, 2025 4:05am ciprofloxacin 500 mg oral tablet (17 sources) Quinolone Antimicrobial Start: 09-29-2023 End: 05-18-2024 [...] 8:34am magnesium citrate 58.2 mg/ml oral solution (14 sources) Start: 12-08-2023 End: 02-16-2025 Magnesium Citrate [...] premix meclizine hydrochloride 25 mg oral tablet (14 sources) Antiemetic Start: 12-08-2023 End: 02-16-2025 take 1 tablet by mouth three times daily Meclizine 25 mg tablet Discontinued 25 mg PO THREE TIMES A DAY 30 0 December 08, 2023 1:00am February 16, 2025 4:06am methylPREDNISolone 4 mg oral tablet (20 sources) Corticosteroid Start: 08-16-2013 End: 11-11-2013 Methylprednisolone 4 MG Box Discontinued 4 mg PO DIRECTED August 16, 2013 12:00am November 11, 2013 4:50pm Start: 08-16-2013 End: 11-11-2013 metroNIDAZOLE 500 mg oral tablet (17 sources) Nitroimidazole Antimicrobial Start: 09-29-2023 End: 05-18-2024 take 1 tablet by mouth twice daily Metronidazole 500 mg tablet Discontinued 500 mg PO TWICE A DAY 20 10 September 29, 2023 1:00am May 18, 2024 [...] as needed for nausea and vomiting 20 0 November 27, 2024 1:00am February [...] remain phenazopyridine hydrochloride 200 mg oral tablet (6 sources) Start: 12-27-2024 End: 02-16-2025 take 1 tablet by mouth three times daily Phenazopyridine (Pyridium) 200 mg tablet Discontinued 200 mg PO THREE TIMES A DAY 10 0 December 27, 2024 1:00am February 16, 2025 4:06am polyethylene glycol 3350 34327 mg powder for oral solution (14 sources) Osmotic Laxative Start: 03-08-2024 End: 02-16-2025 [...] abuse, in remission] 11-25-2022 Chronic Allergic reactions (18 sources) Inflammatory dermatosis; Translations: [Dermatitis, unspecified] 08-26-2023 [...] unspecified, without bleeding] 10-06-2019 Episodic Gastrointestinal hemorrhage (16 sources) Black feces; Translations: [Melena] 10-01-2023 Episodic Headache; including migraine (20 sources) Headache; Translations: [Headache] 10-17-2019 Episodic Malaise and fatigue (20 sources) Asthenia; Translations: [Weakness] Onset: Episodic Noninfectious gastroenteritis (20 sources) Colitis; Translations: [...] obstruction; Translations: [Gastric outlet obstruction] Onset: 10-05-2019 Episodic Other disorders of stomach and [...] [Diarrhea, unspecified] 03-28-2022 Episodic Other gastrointestinal disorders (20 sources) Constipation; Translations: [Constipation, unspecified] 03-08-2024 Episodic [...] light, unspecified, initial encounter] 05-04-2022 Episodic Other injuries and conditions due to external causes (1 source) Other specified injuries of thorax, initial encounter; Translations: [Contusion of rib on right side] 05-16-2021 Episodic Other lower respiratory disease (6 sources) History of chronic obstructive airway disease; [...] Translations: [Noncompliance] 12-10-2022 Episodic Residual codes; unclassified (18 sources) Altered mental status; Translations: [Altered mental [...] [Cough, unspecified] Onset: 5 Urinary tract infections (6 sources) Acute urinary tract infection; Translations: [Urinary [...] 11-30-2012 Episodic Diseases of mouth; excluding dental (7 sources) Xerostomia; Translations: [Dry mouth, unspecified] Onset: 12-26-2024 12-16-2024 Episodic Fracture of lower limb (2 sources) Fracture of ankle; Translations: [Other fracture of left lower leg, initial encounter for closed fracture] Onset: 10-13-2015 Resolved: 09-16-2017 09-16-2017 Episodic Genitourinary symptoms and ill-defined conditions (14 sources) Increased frequency of urination; Translations: [Frequency of micturition] Onset: 01-10-2025 12-16-2024 Episodic Nausea and vomiting (20 sources) Nausea; Translations: [Nausea] Onset: 06-07-2024 05-04-2022 Episodic Other connective tissue disease (3 sources) Foot pain; Translations: [Pain in unspecified foot] Onset: 09-17-2011 09-17-2011 Episodic Unclassified (4 sources) Abrasion, left knee, initial encounter 04-21-2025 Results Test Name Value Interpretation Reference Range Facility Urine Cultureon 05-05-2025 [facility] Staphylococcus aureu s [place] Count 80,000-100,000 Staphylococcus aureus: REACTION cefOXitin Susc Islt Doxycycline Islt NASRIN <=0.5 S Clindamycin.induced Susc Islt NEG Gentamicin Islt NASRIN <=0.5 S Linezolid Islt NASRIN 2 S Moxifloxacin Islt NASRIN <=0.25 S Nitrofurantoin Islt NASRIN <=16 S Oxacillin Susc Islt 0.5 S Tetracycline Islt NASRIN <=1 S TMP SMX Islt NASRIN <=10 S Vancomycin Islt NASRIN <=0.5 S Normal [facility] Comment on above: Performed By: #### M 100.2200 ####[facility] [address] [place], [address] 12 Lead EKGon 05-03-2025 12 Lead EKG [facility] Cardiovascular Services [address] [place] [address] 12 Lead EKG 05/03/25 1255 MR#: [id number] Acct: [id number] Name: JERALD YODER Rep #: [id number] : 1960 65 From: Cesar Mccoy MD Attending Dr: Status: DEP ER Ordering Dr: Cinthia Wilson Date: 05/03/25 Location: ED Sex: M C Admitted: Test Reason : WEAKNESS Blood Pressure : */* mmHG Vent. Rate : 79 BPM Atrial Rate : 79 BPM P-R Int : 194 ms QRS Dur : 86 ms QT Int : 396 ms P-R-T Axes : 53 -44 23 degrees QTcB Int : 454 ms Normal sinus rhythm Left axis deviation Abnormal ECG Confirmed by CESAR MCCOY MD ([id number]), medical editor CARLA HERNANDEZ ([id number]) on 05/06/2025 10:30:28 AM Referred By: Confirmed By: CESAR MCCOY MD 05/06/25 1030 Date Cesar Mccoy MD CC: Dr. Linden Chavez DO; Dr. Pedro Krishnan, DO; ARCHIE Hopkins Signed Normal [facility] Absolute lymphocyte countOrd ered By: Cinthia Wilson on 05-03-2025 Lymphocytes Auto (Unsp spec) [#/Vol] 1.45 10*3/uL 0.83-4.51 [facility] Absolute neutrophil countOrd ered By: Cinthia Wilson on 05-03-2025 Neutrophils (Bld) [#/Vol] 7.2 10*3/uL 2.0-7.7 [facility] Anion gap in Serum or Plasma Ordered By: Cinthia Wilson on 05-03-2025 Anion gap [Moles/Vol] 12 mmol/L 5-[address] [facility] Automated lymphocyte count a s percentage of total leukocytesOrdered By: Cinthia Wilson on 05-03-2025 Lymphocytes/100 WBC Auto (Unsp spec) 15.1 % Low 19-41 [facility] BUN/creatinine ratioOrdered By: Cinthia Wilson on 05-03-2025 Urea nitrogen/Creatinine [Mass ratio] 25.5 mg/mg High 10-20 [facility] Basophil percentageOrdered B y: Cinthia Wilson on 05-03-2025 Basophils/100 WBC (Bld) 0.6 % 0-1 [facility] Bedside Glucoseon 05-03-2025 FINGERSTICK GLU 226 mg/dL High 74-106 [facility] Comment on above: Result Comment: TAYLOR GEMENT OF PATIENT CARE PER NURSING PROTOCOL Performed By: #### L 500.2500, L501.4020, L100.0100 #### [facility] [address] [facility] [place], [address] Bilirubin Test strip Ql (U)O rdered By: Cinthia Wilson on 05-03-2025 Bilirubin Ql (U) Negative Negative [facility] Bilirubin, totalOrdered By: Cinthia Wilson on 05-03-2025 Bilirubin [Mass/Vol] 0.34 mg/dL 0.00-1.30 [facility] CBC W/Diff, Automatedon Absolute Lymph 1.45 X10 3/uL Normal 0.83-4.51 [facility] Comment on above: Performed By: #### L 501.080 #### [facility] [address] [place], [address] Absolute Neut 7.2 X10 3/uL Normal 2.0-7.7 [facility] Comment on above: Performed By: #### L 501.080 #### [facility] [address] [place], [address] Basophils/100 WBC (Bld) 0.6 % Normal 0-1 [facility] Comment on above: Performed By: #### L 501.080 #### [facility] [address] [place], [address] Eosinophils/100 WBC (Bld) 2.1 % Normal 0-5 [facility] Comment on above: Performed By: #### L 501.080 #### [facility] [address] [place], [address] Erythrocyte distribution width (RBC) [Ratio] 13.6 % Normal 11.6-14.6 [facility] Comment on above: Performed By: #### L 501.080 #### [facility] [address] [place], [address] Hematocrit (Bld) [Volume fraction] 39.5 % Low 40-54 [facility] Comment on above: Performed By: #### L 501.080 #### [facility] [address] [place], [address] Hemoglobin (Bld) [Mass/Vol] 14.0 g/dL Normal 13.0-16.5 [facility] Comment on above: Performed By: #### L 501.080 #### [facility] [address] [place], [address] IG% 0.300 Normal 0.0-0.9 [facility] Comment on above: Result Comment: IG% - Immature Granulocytes (promyelocytes, myelocytes and metamyelocytes) > 1% indicates that a LEFT SHIFT is Present. Performed By: #### L 501.080 #### [facility] [address] [place], [address] Lymphocytes/100 WBC (Bld) 15.1 % Low 19-41 [facility] Comment on above: Performed By: #### L 501.080 #### [facility] [address] [place], [address] MCH (RBC) [Entitic mass] 28.6 pg Normal 27.0-32.0 [facility] Comment on above: Performed By: #### L 501.080 #### [facility] [address] [place], [address] MCHC (RBC) [Mass/Vol] 35.4 g/dL Normal 32-[address] [facility] Comment on above: Performed By: #### L 501.080 #### [facility] [address] [place], [address] MCV (RBC) [Entitic vol] 80.8 fL Normal 80-94 [facility] Comment on above: Performed By: #### L 501.080 #### [facility] [address] [place], [address] Monocytes/100 WBC (Bld) 6.8 % Normal 0-10 [facility] Comment on above: Performed By: #### L 501.080 #### [facility] [address] [place], [address] Neutrophils/100 WBC (Bld) 75.1 % High 47-70 [facility] Comment on above: Performed By: #### L 501.080 #### [facility] [address] [place], [address] Nucleated RBC (Bld) [#/Vol] 0 10*3/uL Normal 0-5 [facility] Comment on above: Performed By: #### L 501.080 #### [facility] [address] [place], [address] Platelet mean volume (Bld) [Entitic vol] 8.9 fL Normal 6.2-12.0 [facility] Comment on above: Performed By: #### L 501.080 #### [facility] [address] [place], [address] Platelets (Bld) [#/Vol] 251 10*3/uL Normal 150-450 [facility] Comment on above: Performed By: #### L 501.080 #### [facility] [address] [place], [address] RBC (Bld) [#/Vol] 4.89 10*6/uL Normal 4.6-6.2 [facility] Comment on above: Performed By: #### L 501.080 #### [facility] [address] [place], [address] RDW SD 39.5 fl Normal 35.1-43.9 [facility] Comment on above: Performed By: #### L 501.080 #### [facility] [address] [place], [address] WBC (Bld) [#/Vol] 9.6 10*3/uL Normal 4.4-11.0 [facility] Comment on above: Performed By: #### L 501.080 #### [facility] [address] [place], [address] Carbon dioxide, total [Moles /volume] in Central venous bloodOrdered By: Cinthia Wilson on 05-03-2025 CO2 [Moles/Vol] 23.1 mmol/L 21.0-32.0 [facility] Chloride assayOrdered By: Crissy Wilson on 07-04-2025 Chloride [Moles/Vol] 101 mmol/L 98-108 [facility] Comprehensive Metabolic Prof ilon 05-03-2025 Albumin [Mass/Vol] 4.2 g/dL Normal 3.4-4.8 [facility] Comment on above: Performed By: #### L 501.080 #### [facility] [address] [place], [address] Albumin/Globulin [Mass ratio] 1.3 {ratio} Normal 0.9-2.4 [facility] Comment on above: Performed By: #### L 501.080 #### [facility] [address] [place], [address] ALK PHOS 112 U/L Normal 40-129 [facility] Comment on above: Performed By: #### L 501.080 #### [facility] [address] [place], [address] ALT [Catalytic activity/Vol] 8 U/L Normal <=46 [facility] Comment on above: Performed By: #### L 501.080 #### [facility] [address] [place], [address] AST [Catalytic activity/Vol] 14 U/L Normal <=37 [facility] Comment on above: Performed By: #### L 501.080 #### [facility] [address] [place], [address] Bilirubin [Mass/Vol] 0.34 mg/dL Normal 0.00-1.30 [facility] Comment on above: Performed By: #### L 501.080 #### [facility] [address] [place], [address] BUN/CRE 25.5 RATIO High 10-20 [facility] Comment on above: Performed By: #### L 501.080 #### [facility] [address] [place], [address] Calcium [Mass/Vol] 9.5 mg/dL Normal 7.6-11.0 [facility] Comment on above: Performed By: #### L 501.080 #### [facility] [address] [place], [address] Chloride [Moles/Vol] 101 mmol/L Normal 98-108 [facility] Comment on above: Performed By: #### L 501.080 #### [facility] [address] [place], [address] CO2 [Moles/Vol] 23.1 mmol/L Normal 21.0-32.0 [facility] Comment on above: Performed By: #### L 501.080 #### [facility] [address] [place], [address] Creatinine [Mass/Vol] 0.89 mg/dL Normal 0.70-1.[address] [facility] Comment on above: Performed By: #### L 501.080 #### [facility] [address] [place], [address] ECRCL 104.28 ml/min Normal 50-250 [facility] Comment on above: Performed By: #### L 501.080 #### [facility] [address] [place], [address] GAP 12 Normal 5-15 [facility] Comment on above: Performed By: #### L 501.080 #### [facility] [address] [place], [address] GFR/1.73 sq M.predicted among non-blacks MDRD (S/P/Bld) [Vol rate/Area] 95 mL/min/{1.73_m2} Normal >60 [facility] Comment on above: Result Comment: mL/m in/1.73m2 CKD-EPI Creatinine Equation (2020) Performed By: #### L 501.080 #### [facility] [address] [place], [address] Globulin (S) [Mass/Vol] 3.1 g/dL Normal 2.2-4.2 [facility] Comment on above: Performed By: #### L 501.080 #### [facility] [address] [place], [address] Glucose [Mass/Vol] 215 mg/dL High 70-99 [facility] Comment on above: Performed By: #### L 501.080 #### [facility] [address] [place], [address] Potassium [Moles/Vol] 4.4 mmol/L Normal 3.3-5.[address] [facility] Comment on above: Performed By: #### L 501.080 #### [facility] [address] [place], [address] Sodium [Moles/Vol] 136 mmol/L Normal 133-145 [facility] Comment on above: Performed By: #### L 501.080 #### [facility] [address] [place], [address] T PROT 7.3 g/dL Normal 5.9-8.4 [facility] Comment on above: Performed By: #### L 501.080 #### [facility] [address] [place], [address] Urea nitrogen [Mass/Vol] 23 mg/dL High 4-19 [facility] Comment on above: Performed By: #### L 501.080 #### [facility] [address] [place], [address] Emergency Department Summary on 05-03-2025 Emergency Department Summary [facility] Medical Records Department [address] [place] [address] Emergency Department Summary 05/03/25 MR#: [id number] Acct: [id number] Name: BENITOJERALD BYNUM Rep #: [id number] : 1960 65 From: Cinthia ALMANZA PCP: Dr. Linden Chavez, DO Status:DEP ER Location: ED Patient was seen and examined with physician blood and plasma laboratory assistant Cinthia All components of the history and physical confirmed and agreed. History of present illness and physical exam: Patient is a 65-year-old male with past medical history of CAD, type 2 diabetes who presented to the emergency department the chief complaint of generalized weakness. He states that he was outside fishing for about an hour and a half and states that on the way home he felt weak overall. Patient states that he is chronic diarrhea and states that he has 2 episodes of diarrhea this morning. Patient denies black tarry stools denies blood in his stool. Patient states that he recently followed up with a doctor and prescribed something for diarrhea but states that he was not given anything for his diabetes he states that he forgot to tell him that he was diabetic he states that he has another appointment with him on 05/24. Review of systems: Agreed above Physical exam: Agree with above MDM Patient is a 65-year-old male who presented to the emergency department chief complaint of generalized weakness. On the differential diagnose includes but not limited to electrolyte abnormality, dehydration, ACS, DKA. Once workup is obtained reviewed he will be reevaluated. Patient be given IV fluids for hydration. Patient CBC reviewed showed no evidence of leukocytosis white blood count normal at 9.6, he was 14, platelet count of 251. Patient sodium normal 136, potassium normal 4.4, creatinine was normal at 0.89, anion gap normal at 12. Patient's AST and ALT were normal at 14 and 8 respectively. Patient's urinalysis reviewed showed 500 leukocyte esterase negative nitrates greater than 100 white cells with no bacteria noted. Patient's EKG reviewed showed sinus rhythm with a rate of 79 bpm. Patient's urinalysis was sent for culture he was given prescription for Bactrim. Patient ambulated well here in the emergency department he would like to go home at this point in time. He was given a prescription for Bactrim and metformin. Patient was advised to follow-up with Dr. Chavez at his scheduled appointment and return with worsening symptoms or other concerns. All question concerns answered he is discharged home in stable condition. Final impression: Generalized weakness Dehydration History of type 2 diabetes History of chronic diarrhea Disposition: Patient will be discharged home in stable condition Supervising attending attestation: Pedro Krishnan D.O. [facility] History of Present Illness Chief Complaint: Diarrhea Narrative Narrative: 65-year-old male with PMH of CAD, DM2, noncompliant with medications presents with weakness. He states he was outside in the heat fishing for about an hour and fall on the way home started to feel generalized weakness. He had 2 episodes of loose stools this morning but states it is more of a chronic issue. No melena hematochezia. He denies chest pain, shortness of breath, nausea or vomiting, palpitations or syncope. He states he has been out of his medications for 2 years including metformin and insulin for his diabetes. He just established with Dr. Chavez as a new patient and was prescribed medication for the diarrhea but nothing for diabetes. He states, I forgot to tell him I am diabetic. He has another appointment with him on 05/24. [facility] Medical History Partial traumatic amputation of [...] Unknown History subcutaneous solution (Lantus U-100 Insulin) levo (more content not included)... Normal [facility] Eosinophil percentageOrdered By: Cinthia Wilson on 05-03-2025 Eosinophils/100 WBC (Bld) 2.1 % 0-5 [facility] Erythrocyte distribution wid th ratioOrdered By: Cinthia Wilson on 05-03-2025 Erythrocyte distribution width (RBC) [Ratio] 13.6 % 11.6-14.6 [facility] Erythrocyte distribution wid th standard deviationOrdered By: Cinthia Wilson on 05-03-2025 Erythrocyte distribution width (RBC) [Ratio] 39.5 fl 35.1-43.9 [facility] Glomerular filtration rate ( GFR) estimation/1.73 sq m using serum, plasma, or whole bOrdered By: Cinthia Wilson on 05-03-2025 GFR/1.73 sq M.predicted among non-blacks MDRD (S/P/Bld) [Vol rate/Area] 95 mL/min/{1.73_m2} >60 [facility] Comment on above: mL/min/1.73m2 CKD-EP I Creatinine Equation (2020) [facility]ucose [facility] at [facility] deOrdered By: Pedro Krishnan on 05-03-2025 Glucose [Mass/Vol] 226 mg/dL High 74-106 [facility] Comment on above: MANAGEMENT OF PATIEN T CARE PER NURSING PROTOCOL Hematocrit Auto (Bld) [Volum e fraction]Ordered By: Cinthia Wilson on 05-03-2025 Hematocrit (Bld) [Volume fraction] 39.5 % Low 40-54 [facility] Hemoglobin measurementOrdere d By: Cinthia Wilson on 05-03-2025 Hemoglobin (Bld) [Mass/Vol] 14.0 g/dL 13.0-16.5 [facility] Immature granulocytes/100 WB C Auto (Bld)Ordered By: Cinthia Wilson on 05-03-2025 Immature granulocytes/100 WBC (Bld) 0.300 % 0.0-0.9 [facility] Comment on above: IG% - Immature Granu locytes (promyelocytes, myelocytes and metamyelocytes) > 1% indicates that a LEFT SHIFT is Present. Ketones Test strip Ql (U)Ord ered By: Cinthia Wilson on 05-03-2025 Ketones Ql (U) Negative Negative [facility] - Chemistry and C hemistry - challengeOrdered By: Cinthia Wilson on 05-03-2025 AST [Catalytic activity/Vol] 14 U/L <38 [facility] MCV (mean corpuscular volume ) determinationOrdered By: Cinthia Wilson on 05-03-2025 MCV (RBC) [Entitic vol] 80.8 fL 80-94 [facility] Mean corpuscular hemoglobin (MCH) determinationOrdered By: Cinthia Wilson on 05-03-2025 MCH (RBC) [Entitic mass] 28.6 pg 27.0-32.0 [facility] Mean corpuscular hemoglobin concentration (MCHC) determinationOrdered By: Cinthia Wilson on 05-03-2025 MCHC (RBC) [Mass/Vol] 35.4 g/dL 32-[address] [facility] Mean platelet volume determi nationOrdered By: Cinthia Wilson on 05-03-2025 Platelet mean volume (Bld) [Entitic vol] 8.9 fL 6.2-12.0 [facility] Microscopic analysis of urin e for red blood cells (RBC)Ordered By: Cinthia Wilson on 05-03-2025 Microscopic analysis of urine for red blood cells (RBC) 0 SEEN /hpf 0-5 [facility] Monocyte percentageOrdered B y: Cinthia Wilson on 05-03-2025 Monocytes/100 WBC (Bld) 6.8 % 0-10 [facility] Mucus LM Ql (Urine sed)Order ed By: Cinthia Wilson on 05-03-2025 Mucus Ql (Urine sed) 0 SEEN /hpf [facility] Neutrophil percentageOrdered By: Cinthia Wilson on 05-03-2025 Neutrophils/100 WBC (Bld) 75.1 % High 47-70 [facility] Nitrite Test strip Ql (U)Ord ered By: Cinthia Wilson on 05-03-2025 Nitrite Ql (U) Negative Negative [facility] Nucleated red blood cell per centageOrdered By: Cinthia Wilson on 05-03-2025 Nucleated RBC/100 WBC (Bld) [Ratio] 0 % 0-5 [facility] Platelet countOrdered By: Crissy Wilson on 05-03-2025 Platelets (Bld) [#/Vol] 251 10*3/uL 150-450 [facility] Potassium measurement (mass/ volume)Ordered By: Cinthia Wilsno on 05-03-2025 Potassium (Unsp spec) [Mass/Vol] 4.4 mmol/L 3.3-5.1 [facility] Protein Test strip Ql (U)Ord ered By: Cinthia Wilson on 05-03-2025 Protein Ql (U) 30 mg/dl High Negative [facility] RBC Auto (Bld) [#/Vol]Ordere d By: Cinthia Wilson on 05-03-2025 RBC (Bld) [#/Vol] 4.89 10*6/uL 4.6-6.2 [facility] Serum creatinine measurement (mass/volume)Ordered By: Cinthia Wilson on 05-03-2025 Creatinine [Mass/Vol] 0.89 mg/dL 0.70-1.[address] [facility] Serum globulin measurementOr dered By: Cinthia Wilson on 05-03-2025 Globulin (S) [Mass/Vol] 3.1 g/dL 2.2-4.2 [facility] Serum glucose measurement (m ass/volume)Ordered By: Cinthia Wilson on 05-03-2025 Glucose [Mass/Vol] 215 mg/dL High 70-99 [facility] Serum or plasma alanine wagoner otransferase (ALT) measurementOrdered By: Cinthia Wilson on 05-03-2025 ALT [Catalytic activity/Vol] 8 U/L <47 [facility] Serum or plasma albumin yayo urement (mass/volume)Ordered By: Cinthia Wilson on 05-03-2025 Albumin [Mass/Vol] 4.2 g/dL 3.4-4.8 [facility] Serum or plasma albumin/glob ulin mass ratioOrdered By: Cinthia Wilson on 05-03-2025 Albumin/Globulin [Mass ratio] 1.3 {ratio} 0.9-2.4 [facility] Serum or plasma alkaline andrzej sphatase measurementOrdered By: Cinthia Wilson on 05-03-2025 ALP [Catalytic activity/Vol] 112 U/L 40-129 [facility] Serum or plasma calcium yayo urement (mass/volume)Ordered By: Cinthia Wilson on 05-03-2025 Calcium [Mass/Vol] 9.5 mg/dL 7.6-11.0 [facility] Serum or plasma urea nitroge n measurement (mass/volume)Ordered By: Cinthia Wilson on 05-03-2025 Urea nitrogen [Mass/Vol] 23 mg/dL High 4-19 [facility] Sodium levelOrdered By: Cinthia Wilson on 05-03-2025 Sodium [Moles/Vol] 136 mmol/L 133-145 [facility] Squamous epithelial cells de tection in urine sediment by light microscopyOrdered By: Cinthia Wilson on 05-03-2025 Epithelial cells.squamous LM Ql (Urine sed) 0 SEEN /hpf 0- [facility] Total proteinOrdered By: Martha Wilson on 05-03-2025 Protein [Mass/Vol] 7.3 g/dL 5.9-8.4 [facility] Urinalysis, Completeon 05-03 WBC >100 SEEN Normal 0- [facility] Comment on above: Order Comment: NO CTOR TO SPECIFY Performed By: #### L 400.0001 ####[facility] [address] [place], [address] BACTERIA 0 SEEN Normal None Seen [facility] Comment on above: Order Comment: NO CTOR TO SPECIFY Performed By: #### L 400.0001 ####[facility] [address] [place], [address] EPI,SQUAMOUS 0 SEEN Normal 0-5 [facility] Comment on above: Order Comment: NO CTOR TO SPECIFY Performed By: #### L 400.0001 ####[facility] [address] [place], [address] Mucus Ql (Urine sed) 0 SEEN Normal [facility] Comment on above: Order Comment: NO CTOR TO SPECIFY Performed By: #### L 400.0001 ####[facility] [address] [place], [address] RBC 0 SEEN Normal 0-5 [facility] Comment on above: Order Comment: COLLE CTOR TO SPECIFY Performed By: #### L 400.0001 ####[facility] [address] [place], [address] Urine clarityOrdered By: Martha Wilson on 05-03-2025 Clarity (U) Cloudy Clear [facility] Urine color determinationOrd ered By: Cinthia Wilson on 05-03-2025 Color (U) Yellow Yellow [facility] Urine glucose detectionOrder ed By: Cinthia Wilson on 05-03-2025 Glucose Ql (U) 250 mg/dl High Normal [facility] Urine leukocyte esterase det ection by dipstickOrdered By: Cinthia Wilson on 05-03-2025 Leukocyte esterase Test strip Ql (U) 500 /ul High Negative [facility] Urine pHOrdered By: Cinthia massey on 05-03-2025 pH (U) 6.0 [pH] 5.0 - 8.0 [facility] Urine sediment bacteria coun t by microscopy (number/high power field)Ordered By: Cinthia Wilson on 05-03-2025 Bacteria LM.HPF (Urine sed) [#/Area] 0 /[HPF] None Seen [facility] Urine specific gravity measu rementOrdered By: Cinthia Wilson on 05-03-2025 Specific gravity (U) [Rel density] 1.010 1.002-1.030 [facility] Urine urobilinogen measureme ntOrdered By: Cinthia Wilson on 05-03-2025 Urobilinogen Ql (U) Normal mg/dl Normal [facility] White blood cell (WBC) count Ordered By: Cinthia Wilson on 05-03-2025 WBC (Bld) [#/Vol] 9.6 10*3/uL 4.4-11.0 [facility] White blood cell countOrdere d By: Cinthia Wilson on 05-03-2025 White blood cell count >100 SEEN /hpf 0-5 [facility] Bilirubin Test strip Ql (U)O rdered By: Linden Chavez on 04-26-2025 Bilirubin Ql (U) Negative Negative [facility] Ketones Test strip Ql (U)Ord ered By: Linden Chavez on 04-26-2025 Ketones Ql (U) Negative Negative [facility] Microalb:Creat Ratio,Random URon 04-26-2025 Creatinine [Mass/Vol] 31.70 mg/dL Low 39.00-259.00 [facility] Comment on above: Performed By: #### L 502.0250, L400.2010 ####[facility] [address] [place], [address] MALB:CREAT 564.7 mg/g CRE Normal [facility] Comment on above: Performed By: #### L 502.0250, L400.2010 ####[facility] [address] [place], [address] MICROALBUMIN,UR 179.0 mg/L Normal NO RANGE EST. [facility] Comment on above: Performed By: #### L 502.0250, L400.2010 ####[facility] [address] [place], [address] Nitrite Test strip Ql (U)Ord ered By: Linden Chavez on 04-26-2025 Nitrite Ql (U) Negative Negative [facility] Protein Test strip Ql (U)Ord ered By: Linden Chavez on 04-26-2025 Protein Ql (U) 100 mg/dl High Negative [facility] Random urine creatinine yayo urement (mass/volume)Ordered By: Linden Chavez on 04-26-2025 Creatinine Unsp time (U) [Mass/Vol] 31.70 mg/dL Low 39.00-259.00 [facility] Urinalysis, Routine (Dipstic k)on 04-26-2025 BILIRUBIN URINE Negative Normal Negative [facility] Comment on above: Order Comment: MIACL BRIDGET CATCH Performed By: #### L 502.0250, L400.2010 ####[facility] [address] [place], [address] Clarity (U) Cloudy Normal Clear [facility] Comment on above: Order Comment: MIACL BRIDGET CATCH Performed By: #### L 502.0250, L4.2010 ####[facility] [address] [place], [address] Color (U) Yellow Normal Yellow [facility] Comment on above: Order Comment: MIACL BRIDGET CATCH Performed By: #### L 502.0250, L4.2010 ####[facility] [address] [place], [address] GLUCOSE, UR 1000 mg/dl Abnormal Normal [facility] Comment on above: Order Comment: MIACL BRIDGET CATCH Performed By: #### L 502.0250, L4 ####[facility] [address] [place], [address] KETONE UR Negative Normal Negative [facility] Comment on above: Order Comment: MIACL BRIDGET CATCH Performed By: #### L 502.0250, L4 ####[facility] [address] [place], [address] LEUK ESTERASE 500 /ul Abnormal Negative [facility] Comment on above: Order Comment: MIACL BRIDGET CATCH Performed By: #### L 502.0250, L4 ####[facility] [address] [place], [address] Nitrite Ql (U) Negative Normal Negative [facility] Comment on above: Order Comment: MIACL BRIDGET CATCH Performed By: #### L 502.0250, L4 ####[facility] [address] [place], [address] OCCULT BLOOD-UR 150 /ul Abnormal Negative [facility] Comment on above: Order Comment: MIACL BRIDGET CATCH Performed By: #### L 502.0250, L4 ####[facility] [address] [place], [address] pH UR 7.0 Normal 5.0 - 8.0 [facility] Comment on above: Order Comment: MIACL BRIDGET CATCH Performed By: #### L 502.0250, L400.2010 ####[facility] [address] [place], [address] PROT DIPSTX 100 mg/dl Abnormal Negative [facility] Comment on above: Order Comment: MIACL BRIDGET CATCH Performed By: #### L 502.0250, L400.2010 ####[facility] [address] [place], [address] SP.GR. DIPSTX 1.010 Normal 1.002-1.030 [facility] Comment on above: Order Comment: MIACL BRIDGET CATCH Performed By: #### L 502.0250, L4.2010 ####[facility] [address] [place], [address] UROBILI Normal Normal Normal [facility] Comment on above: Order Comment: MIACL BRIDGET CATCH Performed By: #### L 502.0250, L400 ####[facility] [address] [place], [address] Urine albumin measurement wi th detection limit of 20 mg/L or less (mass/volume)Ordered By: Linden Chavez on 04-26-2025 Albumin DL <= 20 mg/L (U) [Mass/Vol] 179.0 mg/L NO RANGE EST. [facility] Urine clarityOrdered By: Noemy Chavez on 04-26-2025 Clarity (U) Cloudy Clear [facility] Urine color determinationOrd ered By: Linden Chavez on 04-26-2025 Color (U) Yellow Yellow [facility] Urine glucose detectionOrder ed By: Linden Chavez on 04-26-2025 Glucose Ql (U) 1000 mg/dl High Normal [facility] Urine leukocyte esterase det ection by dipstickOrdered By: Linden Chavez on 04-26-2025 Leukocyte esterase Test strip Ql (U) 500 /ul High Negative [facility] Urine pHOrdered By: Linden tripathi on 04-26-2025 pH (U) 7.0 [pH] 5.0 - 8.0 [facility] Urine specific gravity measu rementOrdered By: Linden Chavez on 04-26-2025 Specific gravity (U) [Rel density] 1.010 1.002-1.030 [facility] Urine urobilinogen measureme ntOrdered By: Linden Chavez on 04-26-2025 Urobilinogen Ql (U) Normal mg/dl Normal [facility] Celiac Disease Profileon ENDOMYSIAL IGA Negative Normal Negative [facility] Comment on above: Performed By: #### L 500.2500, L501.4020, L100.0100 #### [facility] [address] [place], [address] IMMUNOGLOB A QN 364 mg/dL Normal 61-437 [facility] Comment on above: Result Comment: Perf ormed at: - [facility] [address] [id number] Asset Management Lead: Rasheed Denney PhD, Phone: [phone] Performed By: #### L 500.2500, L501.4020, L100.0100 #### [facility] [address] [place], [address] tTG IGA <2 Normal 0-3 [facility] Comment on above: Result Comment: Nega tive 0 - 3 Weak Positive 4 - 10 Positive >10 Tissue Transglutaminase (tTG) has been identified as the endomysial antigen. Studies have demonstr- ated that endomysial IgA antibodies have over 99% specificity for gluten sensitive enteropathy. Performed By: #### L 500.2500, L501.4020, L100.0100 #### [facility] [address] [place], [address] Bilirubin directOrdered By: Linden Chavez on 04-23-2025 Bilirubin.direct [Mass/Vol] 0.16 mg/dL 0.00-0.30 [facility] Bilirubin, totalOrdered By: Linden Chavez on 04-23-2025 Bilirubin [Mass/Vol] 0.40 mg/dL 0.00-1.30 [facility] CRPon 04-23-2025 C-REACTIVE PROT 15.50 mg/L High 0.0-3.0 [facility] Comment on above: Performed By: #### L 500.2500, L501.4020, L100.0100 #### [facility] [address] [place], [address] Calculated very low density lipoprotein (VLDL) cholesterol measurementOrdered By: Linden Chavez on 04-23-2025 Calculated very low density lipoprotein (VLDL) cholesterol measurement 37 mg/dL 5-40 [facility] Erythrocyte Sed Rateon 04-23 SED RATE 12 mm/hr Normal 0-20 [facility] Comment on above: Performed By: #### L 500.2500, L501.4020, L100.0100 #### [facility] [address] [place], [address] Erythrocyte sedimentation ra teOrdered By: Linden Chavez on 04-23-2025 ESR (Bld) [Velocity] 12 mm/h 0-20 [facility] Hemoglobin A1con 04-23-2025 HbA1c (Bld) [Mass fraction] 11.6 % High <=5.6 [facility] Comment on above: Result Comment: Norm al < 5.7 % Prediabetic 5.7 - 6.4 % Diabetic >or= 6.5 % Please note range changes. Performed By: #### L 500.2500, L501.4020, L100.0100 #### [facility] [address] [place], [address] Hemoglobin A1c percentageOrd ered By: Linden Chavez on 04-23-2025 HbA1c (Bld) [Mass fraction] 11.6 % High <5.7 [facility] Comment on above: Normal < 5.7 % Predi abetic 5.7 - 6.4 % Diabetic >or= 6.5 % Please note range changes. Hepatitis C Antibodyon 06-24 -2025 Hepatitis C Ab Non-Reactive Normal Nonreactive [facility] Comment on above: Result Comment: Reac tive: Presumptive evidence of antibodies to HCV. Follow CDC recommendations for supplemental testing. Non-Reactive: Antibodies to HCV were not detected; does not exclude the possibility of exposure to HCV Reactive Results are presumptive evidence of antibodies to HCV. Follow CDC recommendations for supplemental testing. Order confirmation testing: HCV Quant by PCR testing - HCVPCR #[id number] Non Reactive: < 0.8 Equivocal: >/= 0.8 to < 1.0 Reactive: >/= 1.0 The [facility] requires that a reactive/equivocal HCV antibody result be sent out for confirmation. HCV Quant by PCR testing. Performed By: #### L 500.2500, L501.4020, L100.0100 #### [facility] [address] [place], [address] LDL calc ser/plasOrdered By: Linden Chavez on 04-23-2025 Cholesterol in LDL [Mass/Vol] 100 mg/dL [facility] Comment on above: Zfoxjrqvfh=172-286 m g/dL & Higher Drsk=028 mg/dL or greater Laboratory - Chemistry and C hemistry - challengeOrdered By: Linden Chavez on 04-23-2025 AST [Catalytic activity/Vol] 11 U/L <38 [facility] Lipid Profileon 04-23-2025 CHOL:HDL 5.04 Normal [facility] Comment on above: Performed By: #### L 500.2500, L501.4020, L100.0100 #### [facility] [address] [place], [address] Cholesterol [Mass/Vol] 171 mg/dL Normal <=200 [facility] Comment on above: Result Comment: Chol esterol level, Desirable <200 mg/dL Borderline high cholesterol 200-239 mg/dL High cholesterol >=240 mg/dL Recommendations of the NCEP Adult Treatment Panel for the following risk-cutoff thresholds for the [place] population. Performed By: #### L 500.2500, L501.4020, L100.0100 #### [facility] [address] [place], [address] Cholesterol in HDL [Mass/Vol] 34 mg/dL Low [facility] Comment on above: Result Comment: Adeline onal Cholesterol Education Program (NCEP) guidelines: <40 mg/dL: Low HDL-cholesterol (major risk factor for CHD) >= 60 mg/dL: High HDL-cholesterol (negative risk factor for CHD) HDL-cholesterol is affected by a number of factors, e.g. smoking, exercise, hormones, sex and age. Performed By: #### L 500.2500, L501.4020, L100.0100 #### [facility] [address] [place], [address] Cholesterol in LDL [Mass/Vol] 100 mg/dL Normal [facility] Comment on above: Result Comment: Bord ljesup=300-584 mg/dL Higher Octd=584 mg/dL or greater Performed By: #### L 500.2500, L501.4020, L100.0100 #### [facility] [address] [place], [address] Cholesterol in VLDL [Mass/Vol] 37 mg/dL Normal 5-40 [facility] Comment on above: Performed By: #### L 500.2500, L501.4020, L100.0100 #### [facility] [address] [place], [address] Triglyceride [Mass/Vol] 187 mg/dL Normal [facility] Comment on above: Result Comment: The drugs N-Acetylcysteine and Metamizole may falsely depress this assay. Normal range: <150 mg/dL Borderline High: 150-199 mg/dL High: 200-499 mg/dL Very High: >500 mg/dL Performed By: #### L 500.2500, L501.4020, L100.0100 #### [facility] [address] [place], [address] Liver Profileon 04-23-2025 Albumin [Mass/Vol] 3.9 g/dL Normal 3.4-4.8 [facility] Comment on above: Performed By: #### L 500.2500, L501.4020, L100.0100 #### [facility] [address] [place], [address] ALK PHOS 102 U/L Normal 40-129 [facility] Comment on above: Performed By: #### L 500.2500, L501.4020, L100.0100 #### [facility] [address] [place], [address] ALT [Catalytic activity/Vol] 8 U/L Normal <=46 [facility] Comment on above: Performed By: #### L 500.2500, L501.4020, L100.0100 #### [facility] [address] [place], [address] AST [Catalytic activity/Vol] 11 U/L Normal <=37 [facility] Comment on above: Performed By: #### L 500.2500, L501.4020, L100.0100 #### [facility] [address] [place], [address] Bilirubin [Mass/Vol] 0.40 mg/dL Normal 0.00-1.30 [facility] Comment on above: Performed By: #### L 500.2500, L501.4020, L100.0100 #### [facility] [address] [place], [address] Bilirubin.direct [Mass/Vol] 0.16 mg/dL Normal 0.00-0.30 [facility] Comment on above: Performed By: #### L 500.2500, L501.4020, L100.0100 #### [facility] [address] [place], [address] Globulin (S) [Mass/Vol] 3.0 g/dL Normal 2.2-4.2 [facility] Comment on above: Performed By: #### L 500.2500, L501.4020, L100.0100 #### [facility] [address] [place], [address] T PROT 6.9 g/dL Normal 5.9-8.4 [facility] Comment on above: Performed By: #### L 500.2500, L501.4020, L100.0100 #### [facility] [address] [place], [address] PSA,Total - Annual Screenon 04-23-2025 PSA,TOT SCREEN 0.35 ng/mL Normal 0.02-4.00 [facility] Comment on above: Result Comment: This [...] confirm baseline values. Performed By: #### L 500.2500, L501.4020, L100.0100 #### [facility] [address] [place], [address] Screening total cholesterol/ high density lipoprotein (HDL) cholesterol ratioOrdered By: Linden Chavez on 04-23-2025 Cholesterol.total/Carol sterol in HDL [Mass ratio] 5.04 {ratio} [facility] Serum globulin measurementOr dered By: Linden Chavez on 04-23-2025 Globulin (S) [Mass/Vol] 3.0 g/dL 2.2-4.2 [facility] Serum or plasma C reactive p rotein measurement (mass/volume)Ordered By: Linden Chavez on 04-23-2025 CRP [Mass/Vol] 15.50 mg/L High 0.0-3.0 [facility] Serum or plasma IgA measurem ent (mass/volume)Ordered By: Linden Chavez on 04-23-2025 IgA [Mass/Vol] 364 mg/dL 61-437 [facility] Comment on above: Performed at: [address] [id number] Director: Rasheed Denney PhD, Phone: [phone] Serum or plasma alanine wagoner otransferase (ALT) measurementOrdered By: Linden Chavez on 04-23-2025 ALT [Catalytic activity/Vol] 8 U/L <47 [facility] Serum or plasma albumin yayo urement (mass/volume)Ordered By: Linden Chavez on 04-23-2025 Albumin [Mass/Vol] 3.9 g/dL 3.4-4.8 [facility] Serum or plasma alkaline andrzej sphatase measurementOrdered By: Linden Chavez on 04-23-2025 ALP [Catalytic activity/Vol] 102 U/L 40-129 [facility] Serum or plasma cholesterol in HDL measurement (mass/volume)Ordered By: Linden Chavez on 04-23-2025 Cholesterol in HDL [Mass/Vol] 34 mg/dL Low >40 [facility] Comment on above: National Cholesterol Education Program (NCEP) guidelines:<40 mg/dL: Low HDL-cholesterol (major risk factor for CHD)>= 60 mg/dL: High HDL-cholesterol (negative risk factor for CHD)HDL-cholesterol is affected by a number of factors, e.g. smoking, exercise, hormones, sex and age. Serum or plasma cholesterol measurement (mass/volume)Ordered By: Linden Chavez on 04-23-2025 Cholesterol [Mass/Vol] 171 mg/dL <201 [facility] Comment on above: Cholesterol level, D esirable <200 mg/dLBorderline high cholesterol 200-239 mg/dLHigh cholesterol >=240 mg/dLRecommendations of the NCEP Adult Treatment Panel for the following risk-cutoff thresholds for the [place] population. Serum tissue transglutaminas e (tTG) IgA antibody assay (units/volume)Ordered By: Linden Chavez on 04-23-2025 tTG IgA Qn (S) <2 U/mL 0-3 [facility] Comment on above: Negative 0 - 3 Weak Positive 4 - 10 Positive >10 Tissue Transglutaminase (tTG) has been identified as the endomysial antigen. Studies have demonstr- ated that endomysial IgA antibodies have over 99% specificity for gluten sensitive enteropathy. TSH DL <= 0.005 mIU/L QnOrde red By: Linden Chavez on 04-23-2025 TSH Qn 13.600 uIU/mL High 0.300-4.200 [facility] Thyroid Stim Hormone (TSH)on 04-23-2025 TSH 13.600 uIU/mL High 0.300-4.200 [facility] Comment on above: Performed By: #### L 500.2500, L501.4020, L100.0100 #### [facility] [address] [place], [address] Total proteinOrdered By: Noemy Chavez on 04-23-2025 Protein [Mass/Vol] 6.9 g/dL 5.9-8.4 [facility] Triglycerides measurementOrd ered By: Linden Chavez on 04-23-2025 Triglyceride [Mass/Vol] 187 mg/dL <199 [facility] Comment on above: The drugs N-Acetylcy steine and Metamizole may falsely depress this assay. Normal range: <150 mg/dLBorderline High: 150-199 mg/dLHigh: 200-499 mg/dLVery High: >500 mg/dL Emergency Department Summary on 04-21-2025 Emergency Department Summary [facility] Medical Records Department [address] [place] [address] Emergency Department Summary 04/21/25 MR#: [id number] Acct: [id number] Name: JERALD YODER Rep #: [id number] : 1960 65 From: Ar Calle MD [...] 96 9 (more content not included)... Normal [facility] Knee 4 or More Viewson 04-21 Knee 4 or More Views [facility] Imaging Services [address] [place] [address] Knee 4 or More Views MR#: [id number] Acct: [id number] Name: JERALD YODER Rep #: [id number] : 1960 M 65 From: Domenico Dewey DO PCP: Care Physician,No Primary Status: REG ER Study: Knee 4 or More Views Date of Exam: 04/21/25 Exam# [id number] Ordering Dr: Ar Calle MD PROCEDURE: KNEE 4 OR MORE VIEWS 04/21/2025 REASON FOR EXAM: INJURY/PAIN Initial encounter TECHNIQUE: KNEE 4 OR MORE VIEWS COMPARISON: None. FINDINGS: Bones: No fracture. No dislocation. Joints: Cartilage thinning and periarticular osteophytes indicate osteoarthritis Effusion: None. Soft tissues: Unremarkable Other: RAD/Knee 4 or More Views IMPRESSION: No acute process detected. Reading Location: [facility]- CC: Dr. 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 Normal [facility] Urine Cultureon 02-18-2025 [facility] Staphylococcus aureu s [place] Count >100,000 Staphylococcus aureus: REACTION cefOXitin Susc Islt Doxycycline Islt NASRIN <=0.5 S Clindamycin.induced Susc Islt NEG Gentamicin Islt NASRIN <=0.5 S Linezolid Islt NASRIN 2 S Moxifloxacin Islt NASRIN <=0.25 S Nitrofurantoin Islt NASRIN <=16 S Oxacillin Susc Islt 0.5 S Tetracycline Islt NASRIN <=1 S TMP SMX Islt NASRIN <=10 S Vancomycin Islt NASRIN 1 S Normal [facility] Comment on above: Performed By: #### M 100.2206 ####[facility] [address] [place], [address] Absolute lymphocyte countOrd ered By: Johann Lemons on 02-16-2025 Lymphocytes Auto (Unsp spec) [#/Vol] 1.39 10*3/uL 0.83-4.51 [facility] Absolute neutrophil countOrd ered By: Johann Lemons on 02-16-2025 Neutrophils (Bld) [#/Vol] 6.4 10*3/uL 2.0-7.7 [facility] Absolute neutrophil count 6.4 X10^3/uL 2.0-7.7 [facility] Anion gap [Moles/Vol]Ordered By: Johann Lemons on 02-16-2025 Anion gap in Serum or Plasma 10 - [facility] Anion gap in Serum or Plasma Ordered By: Johann Lemons on 02-16-2025 Anion gap [Moles/Vol] 10 mmol/L - [facility] Automated lymphocyte count a s percentage of total leukocytesOrdered By: Johann Lemons on 02-16-2025 Lymphocytes/100 WBC Auto (Unsp spec) 16.0 % Low [facility] BUN/creatinine ratioOrdered By: Johann Lemons on 02-16-2025 Urea nitrogen/Creatinine [Mass ratio] 16.0 mg/mg 08-19 [facility] BUN/creatinine ratio 16.0 RATIO 08-19 [facility] Base excess Calc (BldV) [Mol es/Vol]Ordered By: Johann Lemons on 02-16-2025 Venous blood base excess measurement 8 mmol/L High -1.0-3.5 [facility] Basic Metabolic Profile (BMP )on 02-16-2025 BUN/CRE 16.0 RATIO Normal 08-19 [facility] Comment on above: Performed By: #### L 100.0100, L500.2500, L501.6901 ####[facility] [address] [place], [address] Calcium [Mass/Vol] 9.2 mg/dL Normal 7.6-11.0 [facility] Comment on above: Performed By: #### L 100.0100, L500.2500, L501.6901 ####[facility] [address] [place], [address] Chloride [Moles/Vol] 94 mmol/L Low 98-108 [facility] Comment on above: Performed By: #### L 100.0100, L500.2500, L501.6901 ####[facility] [address] [place], [address] CO2 [Moles/Vol] 27.2 mmol/L Normal 21.0-32.0 [facility] Comment on above: Performed By: #### L 100.0100, L500.2500, L501.6901 ####[facility] [address] [place], [address] Creatinine [Mass/Vol] 0.90 mg/dL Normal 0.70-1.[address] [facility] Comment on above: Performed By: #### L 100.0100, L500.2500, L501.6901 ####[facility] [address] [place], [address] ECRCL 104.50 ml/min Normal 50-250 [facility] Comment on above: Performed By: #### L 100.0100, L500.2500, L501.6901 ####[facility] [address] [place], [address] GAP 10 Normal 5-15 [facility] Comment on above: Performed By: #### L 100.0100, L500.2500, L501.6901 ####[facility] [address] [place], [address] GFR/1.73 sq M.predicted among non-blacks MDRD (S/P/Bld) [Vol rate/Area] 96 mL/min/{1.73_m2} Normal >60 [facility] Comment on above: Result Comment: mL/m in/1.73m2 CKD-EPI Creatinine Equation (2020) Performed By: #### L 100.0100, L500.2500, L501.6901 ####[facility] [address] [place], [address] Glucose [Mass/Vol] 453 mg/dL Invalid Interpretation Code 70-99 [facility] Comment on above: Result Comment: Crit ical Result(s) Called at 0505: by:?? NBURNS TO ENRRIQUE Results read back by same. Performed By: #### L 100.0100, L500.2500, L501.6901 ####[facility] [address] [place], [address] Potassium [Moles/Vol] 3.9 mmol/L Normal 3.3-5.[address] [facility] Comment on above: Performed By: #### L 100.0100, L500.2500, L501.6901 ####[facility] [address] [place], [address] Sodium [Moles/Vol] 131 mmol/L Low 133-145 [facility] Comment on above: Performed By: #### L 100.0100, L500.2500, L501.6901 ####[facility] [address] [place], [address] Urea nitrogen [Mass/Vol] 14 mg/dL Normal 4-19 [facility] Comment on above: Performed By: #### L 100.0100, L500.2500, L501.6901 ####[facility] [address] [place], [address] Basophil percentageOrdered B y: Johann Stevencandie on 02-16-2025 Basophils/100 WBC (Bld) 0.5 % 0-1 [facility] Basophil percentage 0.5 % 0-1 [facility] Bedside Glucoseon 02-16-2025 FINGERSTICK GLU 340 mg/dL High 74-106 [facility] Comment on above: Result Comment: TAYLOR GEMENT OF PATIENT CARE PER NURSING PROTOCOL Performed By: #### L 500.2500, L501.4020, L100.0100 #### [facility] [address] [place], [address] FINGERSTICK GLU 341 mg/dL High 74-106 [facility] Comment on above: Result Comment: TAYLOR GEMENT OF PATIENT CARE PER NURSING PROTOCOL Performed By: #### L 500.2500, L501.4020, L100.0100 #### [facility] [address] [place], [address] FINGERSTICK GLU 414 mg/dL High 74-106 [facility] Comment on above: Result Comment: TAYLOR SEALS OF PATIENT CARE PER NURSING PROTOCOL Performed By: #### L 500.2500, L501.4020, L100.0100 #### [facility] [address] [place], [address] Beta hydroxybutyrate [Mass/V ol]Ordered By: Johann Lemons on 02-16-2025 Beta-hydroxybutyrate 0.1 mmol/L 0.0-0.3 [facility] Beta-Hydroxbytyrateon 2024 BETA-HYDROXYBUT 0.1 mmol/L Normal 0.0-0.3 [facility] Comment on above: Performed By: #### L 100.0100, L500.2500, L501.6901 ####[facility] [address] [place], [address] Beta-hydroxybutyrateOrdered By: Johann Lemons on 02-16-2025 Beta hydroxybutyrate [Mass/Vol] 0.1 mmol/L 0.0-0.3 [facility] Bilirubin Test strip Ql (U)O rdered By: Johann Lemons on 02-16-2025 Bilirubin Ql (U) Negative Negative [facility] CBC W/Diff, Automatedon 01-29 Absolute Lymph 1.39 X10 3/uL Normal 0.83-4.51 [facility] Comment on above: Performed By: #### L 100.0100, L500.2500, L501.6901 ####[facility] [address] [place], [address] Absolute Neut 6.4 X10 3/uL Normal 2.0-7.7 [facility] Comment on above: Performed By: #### L 100.0100, L500.2500, L501.6901 ####[facility] [address] [place], [address] Basophils/100 WBC (Bld) 0.5 % Normal 0-1 [facility] Comment on above: Performed By: #### L 100.0100, L500.2500, L501.6901 ####[facility] [address] [place], [address] Eosinophils/100 WBC (Bld) 2.4 % Normal 0-5 [facility] Comment on above: Performed By: #### L 100.0100, L500.2500, L501.6901 ####[facility] [address] [place], [address] Erythrocyte distribution width (RBC) [Ratio] 12.9 % Normal 11.6-14.6 [facility] Comment on above: Performed By: #### L 100.0100, L500.2500, L501.6901 ####[facility] [address] [place], [address] Hematocrit (Bld) [Volume fraction] 34.5 % Low 40-54 [facility] Comment on above: Performed By: #### L 100.0100, L500.2500, L501.6901 ####[facility] [address] [place], [address] Hemoglobin (Bld) [Mass/Vol] 12.2 g/dL Low 13.0-16.5 [facility] Comment on above: Performed By: #### L 100.0100, L500.2500, L501.6901 ####[facility] [address] [place], [address] IG% 0.500 Normal 0.0-0.9 [facility] Comment on above: Result Comment: IG% - Immature Granulocytes (promyelocytes, myelocytes and metamyelocytes) > 1% indicates that a LEFT SHIFT is Present. Performed By: #### L 100.0100, L500.2500, L501.6901 ####[facility] [address] [place], [address] Lymphocytes/100 WBC (Bld) 16.0 % Low 19-41 [facility] Comment on above: Performed By: #### L 100.0100, L500.2500, L501.6901 ####[facility] [address] [place], [address] MCH (RBC) [Entitic mass] 28.0 pg Normal 27.0-32.0 [facility] Comment on above: Performed By: #### L 100.0100, L500.2500, L501.6901 ####[facility] [address] [place], [address] MCHC (RBC) [Mass/Vol] 35.4 g/dL Normal 32-[address] [facility] Comment on above: Performed By: #### L 100.0100, L500.2500, L501.6901 ####[facility] [address] [place], [address] MCV (RBC) [Entitic vol] 79.3 fL Low 80-94 [facility] Comment on above: Performed By: #### L 100.0100, L500.2500, L501.6901 ####[facility] [address] [place], [address] Monocytes/100 WBC (Bld) 7.1 % Normal 0-10 [facility] Comment on above: Performed By: #### L 100.0100, L500.2500, L501.6901 ####[facility] [address] [place], [address] Neutrophils/100 WBC (Bld) 73.5 % High 47-70 [facility] Comment on above: Performed By: #### L 100.0100, L500.2500, L501.6901 ####[facility] [address] [place], [address] Nucleated RBC (Bld) [#/Vol] 0 10*3/uL Normal 0-5 [facility] Comment on above: Performed By: #### L 100.0100, L500.2500, L501.6901 ####[facility] [address] [place], [address] Platelet mean volume (Bld) [Entitic vol] 8.8 fL Normal 6.2-12.0 [facility] Comment on above: Performed By: #### L 100.0100, L500.2500, L501.6901 ####[facility] [address] [place], [address] Platelets (Bld) [#/Vol] 230 10*3/uL Normal 150-450 [facility] Comment on above: Performed By: #### L 100.0100, L500.2500, L501.6901 ####[facility] [address] [place], [address] RBC (Bld) [#/Vol] 4.35 10*6/uL Low 4.6-6.2 [facility] Comment on above: Performed By: #### L 100.0100, L500.2500, L501.6901 ####[facility] [address] [place], [address] RDW SD 36.9 fl Normal 35.1-43.9 [facility] Comment on above: Performed By: #### L 100.0100, L500.2500, L501.6901 ####[facility] [address] [place], [address] WBC (Bld) [#/Vol] 8.7 10*3/uL Normal 4.4-11.0 [facility] Comment on above: Performed By: #### L 100.0100, L500.2500, L501.6901 ####[facility] [address] [place], [address] CO2 (BldV) [Moles/Vol]Ordere d By: Johann Lemons on 02-16-2025 CO2 [Moles/Vol] 34 mmol/L High 23-33 [facility] Venous blood total carbon dioxide measurement 34 mmol/L High 23-33 [facility] CO2 (BldV) [Partial pressure ]Ordered By: Johann Lemons on 02-16-2025 Venous blood partial pressure of carbon dioxide measurement 54.5 mmHg High 41-51 [facility] Calcium [Mass/Vol]Ordered By : Johann Lemons on 02-16-2025 Serum or plasma calcium measurement (mass/volume) 9.2 mg/dL 7.6-11.0 [facility] Carbon dioxide, total [Moles /volume] in Central venous bloodOrdered By: Johann Lemons on 02-16-2025 CO2 [Moles/Vol] 27.2 mmol/L 21.0-32.0 [facility] Carbon dioxide, total [Moles/volume] in Central venous blood 27.2 mmol/L 21.0-32.0 [facility] Chest PA and Lateralon 02-16 Chest PA and Lateral [facility] Imaging Services [address] [place] [address] Chest PA and Lateral MR#: [id number] Acct: [id number] Name: JERALD YODER Rep #: [id number] : 1960 M 64 From: Tacho Alcaraz MD PCP: Care Physician,No Primary Status: REG ER Study: Chest PA and Lateral Date of Exam: 02/16/25 Exam# [id number] Ordering Dr: Johann Lemons DO PROCEDURE: CHEST [...] No evidence of acute disease. 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 Normal [facility] Chloride assayOrdered By: Julia Lemons on 02-16-2025 Chloride [Moles/Vol] 94 mmol/L Low 98-108 [facility] Chloride assay 94 mmol/L Low 98-108 [facility] Clarity (U)Ordered By: Roland Lemons on 02-16-2025 Urine clarity Turbid Clear [facility] Color (U)Ordered By: Johann Lemons on 02-16-2025 Urine color determination Yellow Yellow [facility] Creatinine [Mass/Vol]Ordered By: Johann Lemons on 02-16-2025 Serum creatinine measurement (mass/volume) 0.90 mg/dL 0.70-1.20 [facility] Emergency Department Summary on 02-16-2025 Emergency Department Summary [facility] Medical Records Department [address] [place] [address] Emergency Department Summary 02/16/25 MR#: [id number] Acct: [id number] Name: JERALD YODER Rep #: [id number] : 1960 64 From: Johann Lemons DO [...] symptoms and therefore comes in for evaluation [facility] Medical History (Updated 02/16/25 @ 07:40 [...] mucous membranes (more content not included)... Normal [facility] Eosinophil percentageOrdered By: Johann Lemons on 02-16-2025 Eosinophils/100 WBC (Bld) 2.4 % 0-5 [facility] Eosinophil percentage 2.4 % 0-[address] [facility] Erythrocyte distribution wid th (RBC) [Ratio]Ordered By: Johann Lemons on 02-16-2025 Erythrocyte distribution width ratio 12.9 % 11.6-14.6 [facility] Erythrocyte distribution width standard deviation 36.9 fl 35.1-43.9 [facility] Erythrocyte distribution wid th ratioOrdered By: Johann Lemons on 02-16-2025 Erythrocyte distribution width (RBC) [Ratio] 12.9 % 11.6-14.6 [facility] Erythrocyte distribution wid th standard deviationOrdered By: Johann Lemons on 02-16-2025 Erythrocyte distribution width (RBC) [Ratio] 36.9 fl 35.1-43.9 [facility] Estimation of creatinine edinson aranceOrdered By: Johann Lemons on 02-16-2025 Estimation of creatinine clearance 104.50 ml/min 50-250 [facility] GFR/1.73 sq M.predicted mari g non-blacks MDRD (S/P/Bld) [Vol rate/Area]Ordered By: Johann Lemons on 02-16-2025 Glomerular filtration rate (GFR) estimation/1.73 sq m using serum, plasma, or whole b 96 >60 [facility] Glomerular filtration rate ( GFR) estimation/1.73 sq m using serum, plasma, or whole bOrdered By: Johann Lemons on 02-16-2025 GFR/1.73 sq M.predicted among non-blacks MDRD (S/P/Bld) [Vol rate/Area] 96 mL/min/{1.73_m2} >60 [facility] Comment on above: mL/min/1.73m2 CKD-EP I Creatinine Equation (2020) Glucose Ql (U)Ordered By: Julia Lemons on 02-16-2025 Urine glucose detection 1000 mg/dl High Normal [facility] Glucose [Mass/Vol]Ordered By : Johann Lemons on 02-16-2025 Serum glucose measurement (mass/volume) 453 mg/dL High 70-99 [facility] Glucose measurement at bedsi deOrdered By: Johann Lemons on 02-16-2025 Glucose [Mass/Vol] 340 mg/dL High 74-106 [facility] Comment on above: MANAGEMENT OF PATIEN T CARE PER NURSING PROTOCOL Glucose measurement at bedside 341 mg/dL High 74-106 [facility] Hematocrit Auto (Bld) [Volum e fraction]Ordered By: Johann Lemons on 02-16-2025 Hematocrit (Bld) [Volume fraction] 34.5 % Low 40-54 [facility] Automated blood hematocrit (percentage) 34.5 % Low 40-54 [facility] Hemoglobin measurementOrdere d By: Johann Leomns on 02-16-2025 Hemoglobin (Bld) [Mass/Vol] 12.2 g/dL Low 13.0-16.5 [facility] Hemoglobin measurement 12.2 g/dL Low 13.0-16.5 [facility] Immature granulocytes/100 WB C Auto (Bld)Ordered By: Johann Lemons on 02-16-2025 Immature granulocytes/100 WBC (Bld) 0.500 % 0.0-0.9 [facility] Comment on above: IG% - Immature Granu locytes (promyelocytes, myelocytes and metamyelocytes) > 1% indicates that a LEFT SHIFT is Present. Automated immature granulocyte percentage 0.500 % 0.0-0.9 [facility] Ketones Test strip Ql (U)Ord ered By: Johann Lemons on 02-16-2025 Ketones Ql (U) Negative Negative [facility] Leukocyte esterase Test stri p Ql (U)Ordered By: Johann Lemons on 02-16-2025 Urine leukocyte esterase detection by dipstick 500 /ul High Negative [facility] Lymphocytes Auto (Unsp spec) [#/Vol]Ordered By: Johann Lemons on 02-16-2025 Absolute lymphocyte count 1.39 X10^3/uL 0.83-4.51 [facility] Lymphocytes/100 WBC Auto (Un sp spec)Ordered By: Johann Lemons on 02-16-2025 Automated lymphocyte count as percentage of total leukocytes 16.0 % Low 19-41 [facility] MCV (RBC) [Entitic vol]Order ed By: Johann Lemons on 02-16-2025 MCV (mean corpuscular volume) determination 79.3 fL Low 80-94 [facility] MCV (mean corpuscular volume ) determinationOrdered By: Johann Lemons on 02-16-2025 MCV (RBC) [Entitic vol] 79.3 fL Low 80-94 [facility] Mean corpuscular hemoglobin (MCH) determinationOrdered By: Johann Lemons on 02-16-2025 MCH (RBC) [Entitic mass] 28.0 pg 27.0-32.0 [facility] Mean corpuscular hemoglobin (MCH) determination 28.0 pg 27.0-32.0 [facility] Mean corpuscular hemoglobin concentration (MCHC) determinationOrdered By: Johann Lemons on 02-16-2025 MCHC (RBC) [Mass/Vol] 35.4 g/dL 32-[address] [facility] Mean corpuscular hemoglobin concentration (MCHC) determination 35.4 g/dL 32-36 [facility] Mean platelet volume determi nationOrdered By: Johann Lemons on 02-16-2025 Platelet mean volume (Bld) [Entitic vol] 8.8 fL 6.2-12.0 [facility] Mean platelet volume determination 8.8 fl 6.2-12.0 [facility] Microscopic analysis of urin e for red blood cells (RBC)Ordered By: Johann Lemons on 02-16-2025 Microscopic analysis of urine for red blood cells (RBC) 0 SEEN /hpf 0-5 [facility] Microscopic analysis of urine for red blood cells (RBC) 0 SEEN /hpf [facility] Monocyte percentageOrdered B y: Johann Lemons on 02-16-2025 Monocytes/100 WBC (Bld) 7.1 % 0-10 [facility] Monocyte percentage 7.1 % 0-10 [facility] Mucus LM Ql (Urine sed)Order ed By: Johann Lemons on 02-16-2025 Mucus Ql (Urine sed) 0 SEEN /hpf [facility] Neutrophil percentageOrdered By: Johann Lemons on 02-16-2025 Neutrophils/100 WBC (Bld) 73.5 % High 47-70 [facility] Neutrophil percentage 73.5 % High 47-[address] [facility] Nitrite Test strip Ql (U)Ord ered By: Johann Lemons on 02-16-2025 Nitrite Ql (U) Positive High Negative [facility] Urine nitrite test by dipstick Positive High Negative [facility] No Panel InformationOrdered By: Johann Lemons on 02-16-2025 Blood Gas Sample Site Not entered [facility] Blood Gas Specimen Type GRACY [facility] Oxygen Delivery Device Not entered [facility] GRACY [facility] Not entered [facility] Nucleated red blood cell per centageOrdered By: Johann Lemons on 02-16-2025 Nucleated RBC/100 WBC (Bld) [Ratio] 0 % 0-5 [facility] Nucleated red blood cell percentage 0 % 0-5 [facility] Oxygen (BldV) [Partial press ure]Ordered By: Johann Lemons on 02-16-2025 Venous blood partial pressure of oxygen measurement 46 mmHg High 25-40 [facility] Platelet countOrdered By: Julia Lemons on 02-16-2025 Platelets (Bld) [#/Vol] 230 10*3/uL 150-450 [facility] Platelet count 230 K/mm3 150-450 [facility] Potassium (Unsp spec) [Mass/ Vol]Ordered By: Johann Lemons on 02-16-2025 Potassium measurement (mass/volume) 3.9 mmol/L 3.3-5.1 [facility] Potassium measurement (mass/ volume)Ordered By: Johann Lemons on 02-16-2025 Potassium (Unsp spec) [Mass/Vol] 3.9 mmol/L 3.3-5.1 [facility] Protein Test strip Ql (U)Ord ered By: Johann Lemons on 02-16-2025 Protein Ql (U) 100 mg/dl High Negative [facility] Urine protein assay by test strip, semi-quantitative 100 mg/dl High Negative [facility] RBC Auto (Bld) [#/Vol]Ordere d By: Johann Lemons on 02-16-2025 RBC (Bld) [#/Vol] 4.35 10*6/uL Low 4.6-6.2 [facility] Automated blood erythrocyte count 4.35 M/mm3 Low 4.6-6.2 [facility] Serum creatinine measurement (mass/volume)Ordered By: Johann Lemons on 02-16-2025 Creatinine [Mass/Vol] 0.90 mg/dL 0.70-1.[address] [facility] Serum glucose measurement (m ass/volume)Ordered By: Johann Lemons on 02-16-2025 Glucose [Mass/Vol] 453 mg/dL High 70-99 [facility] Comment on above: Critical Result(s) C alled at 0505: by: MARYAM OSUNA Results read back by same. Serum or plasma calcium yayo urement (mass/volume)Ordered By: Johann Lemons on 02-16-2025 Calcium [Mass/Vol] 9.2 mg/dL 7.6-11.0 [facility] Serum or plasma urea nitroge n measurement (mass/volume)Ordered By: Johann Lemons on 02-16-2025 Urea nitrogen [Mass/Vol] 14 mg/dL - [facility] Sodium levelOrdered By: Keith Lemons on 02-16-2025 Sodium [Moles/Vol] 131 mmol/L Low 133-145 [facility] Sodium level 131 mmol/L Low 133-145 [facility] Specific gravity (U) [Rel de nsity]Ordered By: Johann Lemons on 02-16-2025 Urine specific gravity measurement 1.010 1.002-1.030 [facility] Squamous epithelial cells de tection in urine sediment by light microscopyOrdered By: Johann Lemons on 02-16-2025 Epithelial cells.squamous LM Ql (Urine sed) 0 SEEN /hpf 0-5 [facility] Urea nitrogen [Mass/Vol]Orde red By: Johann Lemons on 02-16-2025 Serum or plasma urea nitrogen measurement (mass/volume) 14 mg/dL 02-16 [facility] Urinalysis, Completeon 02-16 WBC >100 SEEN Normal 0-5 [facility] Comment on above: Order Comment: 'TROP ' Serial specimen #1, #2 or #3: 1 Performed By: #### L 500.2500, L501.4020, L100.0100 #### [facility] [address] [place], [address] BACTERIA 0 SEEN Normal None Seen [facility] Comment on above: Order Comment: 'TROP ' Serial specimen #1, #2 or #3: 1 Performed By: #### L 500.2500, L501.4020, L100.0100 #### [facility] [address] [place], [address] EPI,SQUAMOUS 0 SEEN Normal [address] [place] [address] Comment on above: Order Comment: 'TROP ' Serial specimen #1, #2 or #3: 1 Performed By: #### L 500.2500, L501.4020, L100.0100 #### [facility] [address] [place], [address] Mucus Ql (Urine sed) 0 SEEN Normal [facility] Comment on above: Order Comment: 'TROP ' Serial specimen #1, #2 or #3: 1 Performed By: #### L 500.2500, L501.4020, L100.0100 #### [facility] [address] [place], [address] RBC 0 SEEN Normal [address] [place] [address] Comment on above: Order Comment: 'TROP ' Serial specimen #1, #2 or #3: 1 Performed By: #### L 500.2500, L501.4020, L100.0100 #### [facility] [address] [place], [address] Urine blood detectionOrdered By: Johann Lemons on 02-16-2025 Urine blood detection 150 /ul High Negative [facility] Urine clarityOrdered By: Otoniel Lemons on 02-16-2025 Clarity (U) Turbid Clear [facility] Urine color determinationOrd ered By: Johann Lemons on 02-16-2025 Color (U) Yellow Yellow [facility] Urine cultureOrdered By: Otoneil Lemons on 02-16-2025 Bacteria identified Cx Nom (U) Staphylococcus aureus Abnormal [facility] Urine glucose detectionOrder ed By: Johann Lemons on 02-16-2025 Glucose Ql (U) 1000 mg/dl High Normal [facility] Urine leukocyte esterase det ection by dipstickOrdered By: Johann Lemons on 02-16-2025 Leukocyte esterase Test strip Ql (U) 500 /ul High Negative [facility] Urine pHOrdered By: Johann borjas on 02-16-2025 pH (U) 6.0 [pH] 5.0 - 8.0 [facility] Urine sediment bacteria coun t by microscopy (number/high power field)Ordered By: Johann Lemons on 02-16-2025 Bacteria LM.HPF (Urine sed) [#/Area] 0 /[HPF] None Seen [facility] Urine specific gravity measu rementOrdered By: Johann Lemons on 02-16-2025 Specific gravity (U) [Rel density] 1.010 1.002-1.030 [facility] Urine total bilirubin detect ion by test stripOrdered By: Johann Lemons on 02-16-2025 Urine total bilirubin detection by test strip Negative Negative [facility] Urine urobilinogen measureme ntOrdered By: Johann Lemons on 02-16-2025 Urobilinogen Ql (U) Normal mg/dl Normal [facility] Urobilinogen Ql (U)Ordered B y: Johann Lemons on 02-16-2025 Urine urobilinogen measurement Normal mg/dl Normal [facility] Venous Blood Gason Blood Gas Type GRACY Normal [facility] Comment on above: Performed By: #### L 500.2500, L501.4020, L100.0100 #### [facility] [address] [place], [address] CO2 [Moles/Vol] 34 mmol/L High 23-33 [facility] Comment on above: Performed By: #### L 500.2500, L501.4020, L100.0100 #### [facility] [address] [place], [address] HCO3 (Bld) [Moles/Vol] 33 mmol/L High 22-26 [facility] Comment on above: Performed By: #### L 500.2500, L501.4020, L100.0100 #### [facility] [address] [place], [address] O2 Delivery Dev Not entered [facility] Comment on above: Performed By: #### L 500.2500, L501.4020, L100.0100 #### [facility] [address] [place], [address] SITE Not entered [facility] Comment on above: Performed By: #### L 500.2500, L501.4020, L100.0100 #### [facility] [address] [place], [address] VBG BE 8 mmol/L High -1.0-3.5 [facility] Comment on above: Performed By: #### L 500.2500, L501.4020, L100.0100 #### [facility] [address] [place], [address] VBG pCO2 54.5 mmHg High 41-51 [facility] Comment on above: Performed By: #### L 500.2500, L501.4020, L100.0100 #### [facility] [address] [place], [address] VBG pH 7.39 Normal 7.32-7.42 [facility] Comment on above: Performed By: #### L 500.2500, L501.4020, L100.0100 #### [facility] [address] [place], [address] VBG PO2 46 mmHg High 25-40 [facility] Comment on above: Performed By: #### L 500.2500, L501.4020, L100.0100 #### [facility] [address] [place], [address] VBG SO2 80 High 50-70 [facility] Comment on above: Performed By: #### L 500.2500, L501.4020, L100.0100 #### [facility] [address] [place], [address] Venous blood base excess sarina surementOrdered By: Johann Lemons on 02-16-2025 Base excess Calc (BldV) [Moles/Vol] 8 mmol/L High -1.0-3.5 [facility] Venous blood bicarbonate sarina surementOrdered By: Johann Lemons on 02-16-2025 HCO3 (Bld) [Moles/Vol] 33 mmol/L High 22-26 [facility] Venous blood bicarbonate measurement 33 mmol/L High 22-26 [facility] Venous blood oxygen saturati on measurementOrdered By: Johann Lemons on 02-16-2025 Oxygen saturation in Blood 80 % High 50-70 [facility] Venous blood oxygen saturation measurement 80 % High 50-70 [facility] Venous blood pH measurementO rdered By: Johann Lemons on 02-16-2025 pH (BldV) 7.39 [pH] 7.32-7.42 [facility] Venous blood partial pressur e of carbon dioxide measurementOrdered By: Johann Lemons on 02-16-2025 CO2 (BldV) [Partial pressure] 54.5 mm[Hg] High 41-51 [facility] Venous blood partial pressur e of oxygen measurementOrdered By: Johann Lemons on 02-16-2025 Oxygen (BldV) [Partial pressure] 46 mm[Hg] High 25-40 [facility] White blood cell (WBC) count Ordered By: Johann Lemons on 02-16-2025 WBC (Bld) [#/Vol] 8.7 10*3/uL 4.4-11.0 [facility] White blood cell (WBC) count 8.7 K/mm3 4.4-11.0 [facility] White blood cell countOrdere d By: Johann Lemons on 02-16-2025 White blood cell count >100 SEEN /hpf 0-5 [facility] White blood cell count >100 SEEN /hpf 0-5 [facility] pH (BldV)Ordered By: Johann Lemons on 02-16-2025 Venous blood pH measurement 7.39 7.32-7.42 [facility] pH (U)Ordered By: Wilmer on 02-16-2025 Urine pH 6.0 5.0 - 8.0 [facility] Urine Cultureon 12-29-2024 [facility] Staphylococcus aureu s [place] Count >100,000 Staphylococcus aureus: REACTION cefOXitin Susc Islt Doxycycline Islt NASRIN <=0.5 S Clindamycin.induced Susc Islt NEG Gentamicin Islt NASRIN <=0.5 S Linezolid Islt NASRIN 2 S Moxifloxacin Islt NASRIN <=0.25 S Nitrofurantoin Islt NASRIN <=16 S Oxacillin Susc Islt 0.5 S Tetracycline Islt NASRIN <=1 S TMP SMX Islt NASRIN <=10 S Vancomycin Islt NASRIN <=0.5 S Normal [facility] Comment on above: Performed By: #### M 100.9303 ####[facility] [address] [place], [address] Bacteria LM.HPF (Urine sed) [#/Area]Ordered By: ED PROVIDER on 12-27-2024 Urine sediment bacteria count by microscopy (number/high power field) 3+ /hpf None Seen [facility] Bilirubin Test strip Ql (U)O rdered By: ED PROVIDER on 12-27-2024 Bilirubin Ql (U) Negative Negative [facility] Clarity (U)Ordered By: ED UT OVIDER on 12-27-2024 Urine clarity Turbid Clear [facility] Color (U)Ordered By: ED PROV IDER on 12-27-2024 Urine color determination Yellow Yellow [facility] Emergency Department Summary on 12-27-2024 Emergency Department Summary [facility] Medical Records Department [address] [place] [address] Emergency Department Summary 12/27/24 MR#: [id number] Acct: [id number] Name: JERALD YODER Rep #: [id number] : 1960 64 From: Panchito Yun PCP: [...] Neck f (more content not included)... Normal [facility] Glucose Ql (U)Ordered By: ED PROVIDER on 12-27-2024 Urine glucose detection 1000 mg/dl High Normal [facility] Ketones Test strip Ql (U)Ord ered By: ED PROVIDER on 12-27-2024 Ketones Ql (U) Negative Negative [facility] Leukocyte esterase Test stri p Ql (U)Ordered By: ED PROVIDER on 12-27-2024 Urine leukocyte esterase detection by dipstick 500 /ul High Negative [facility] Microscopic analysis of urin e for red blood cells (RBC)Ordered By: ED PROVIDER on 12-27-2024 Microscopic analysis of urine for red blood cells (RBC) 25-50 SEEN /hpf 0-5 [facility] Microscopic analysis of urine for red blood cells (RBC) 25-50 SEEN /hpf 0-5 [facility] Mucus LM Ql (Urine sed)Order ed By: ED PROVIDER on 12-27-2024 Mucus Ql (Urine sed) 0 SEEN /hpf [facility] Nitrite Test strip Ql (U)Ord ered By: ED PROVIDER on 12-27-2024 Nitrite Ql (U) Positive High Negative [facility] Urine nitrite test by dipstick Positive High Negative [facility] Protein Test strip Ql (U)Ord ered By: ED PROVIDER on 12-27-2024 Protein Ql (U) 500 mg/dl High Negative [facility] Urine protein assay by test strip, semi-quantitative 500 mg/dl High Negative [facility] Specific gravity (U) [Rel de nsity]Ordered By: ED PROVIDER on 12-27-2024 Urine specific gravity measurement 1.015 1.002-1.030 [facility] Squamous epithelial cells de tection in urine sediment by light microscopyOrdered By: ED PROVIDER on 12-27-2024 Epithelial cells.squamous LM Ql (Urine sed) 0 SEEN /hpf 0-5 [facility] Squamous epithelial cells detection in urine sediment by light microscopy 0 SEEN /hpf [facility] Urinalysis, Completeon 12-27 BACTERIA 3+ /hpf Normal None Seen [facility] Comment on above: Order Comment: 'TROP ' Serial specimen #1, #2 or #3: 1 Performed By: #### L 500.2500, L501.4020, L100.0100 #### [facility] [address] [place], [address] RBC 25-50 SEEN Normal [address] Comment on above: Order Comment: 'TROP ' Serial specimen #1, #2 or #3: 1 Performed By: #### L 500.2500, L501.4020, L100.0100 #### [facility] [address] [place], [address] WBC >100 SEEN Normal [address] [place] [address] Comment on above: Order Comment: 'TROP ' Serial specimen #1, #2 or #3: 1 Result Comment: Micr oscopic field is filled. Other elements may be obscured. Performed By: #### L 500.2500, L501.4020, L100.0100 #### [facility] [address] [place], [address] EPI,SQUAMOUS 0 SEEN Normal [address] [place] [address] Comment on above: Order Comment: 'TROP ' Serial specimen #1, #2 or #3: 1 Performed By: #### L 500.2500, L501.4020, L100.0100 #### [facility] [address] [place], [address] Mucus Ql (Urine sed) 0 SEEN Normal [facility] Comment on above: Order Comment: 'TROP ' Serial specimen #1, #2 or #3: 1 Performed By: #### L 500.2500, L501.4020, L100.0100 #### [facility] [address] [place], [address] Urine blood detectionOrdered By: ED PROVIDER on 12-27-2024 Urine blood detection 250 /ul High Negative [facility] Urine clarityOrdered By: ED PROVIDER on 12-27-2024 Clarity (U) Turbid Clear [facility] Urine color determinationOrd ered By: ED PROVIDER on 12-27-2024 Color (U) Yellow Yellow [facility] Urine glucose detectionOrder ed By: ED PROVIDER on 12-27-2024 Glucose Ql (U) 1000 mg/dl High Normal [facility] Urine leukocyte esterase det ection by dipstickOrdered By: ED PROVIDER on 12-27-2024 Leukocyte esterase Test strip Ql (U) 500 /ul High Negative [facility] Urine pHOrdered By: ED PROVI CRISTINA on 12-27-2024 pH (U) 6.0 [pH] 5.0 - 8.0 [facility] Urine sediment bacteria coun t by microscopy (number/high power field)Ordered By: ED PROVIDER on 12-27-2024 Bacteria LM.HPF (Urine sed) [#/Area] 3 /[HPF] None Seen [facility] Urine specific gravity measu rementOrdered By: ED PROVIDER on 12-27-2024 Specific gravity (U) [Rel density] 1.015 1.002-1.030 [facility] Urine total bilirubin detect ion by test stripOrdered By: ED PROVIDER on 12-27-2024 Urine total bilirubin detection by test strip Negative Negative [facility] Urine urobilinogen measureme ntOrdered By: ED PROVIDER on 12-27-2024 Urobilinogen Ql (U) Normal mg/dl Normal [facility] Urobilinogen Ql (U)Ordered B y: ED PROVIDER on 12-27-2024 Urine urobilinogen measurement Normal mg/dl Normal [facility] White blood cell countOrdere d By: ED PROVIDER on 12-27-2024 White blood cell count >100 SEEN /hpf 0-5 [facility] Comment on above: Microscopic field is filled. Other elements may be obscured. White blood cell count >100 SEEN /hpf 0-5 [facility] pH (U)Ordered By: ED PROVIDE R on 12-27-2024 Urine pH 6.0 5.0 - 8.0 [facility] Urine cultureOrdered By: Harley Castillo on 12-26-2024 Bacteria identified Cx Nom (U) Staphylococcus aureus Abnormal [facility] Urine culture Staphylococcus aureus Abnormal [facility] ALP [Catalytic activity/Vol] Ordered By: Avni Cash on 12-20-2024 Serum or plasma alkaline phosphatase measurement 117 U/L 45-117 [facility] ALT [Catalytic activity/Vol] Ordered By: Avni Cash on 12-20-2024 Serum or plasma alanine aminotransferase (ALT) measurement 16 U/L 16-61 [facility] Abdomen/Pelvis W IV Cont ONL Yon 12-20-2024 Abdomen/Pelvis W IV Cont ONLY [facility] Imaging Services [address] [place], [place] [address] Abdomen/Pelvis W IV Cont ONLY MR#: [id number] Acct: [id number] Name: JERALD YODER Rep #: [id number] : 1960 M 64 From: Beck Quigley MD PCP: Care Physician,No Primary Status: REG ER Study: Abdomen/Pelvis W IV Cont ONLY Date of Exam: Exam# [id number] Ordering Dr: Avni Cash MD PROCEDURE: ABDOMEN/PELVIS [...] use of iterative reconstruction technique). Reading Location: [place] [address] CC: Dr. 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 Normal [facility] Absolute lymphocyte countOrd ered By: Avni Cash on 12-20-2024 Lymphocytes Auto (Unsp spec) [#/Vol] 1.10 10*3/uL 0.83-4.51 [facility] Absolute neutrophil countOrd ered By: Avni Cash on 12-20-2024 Neutrophils (Bld) [#/Vol] 6.6 10*3/uL 2.0-7.7 [facility] Absolute neutrophil count 6.6 X10^3/uL 2.0-7.7 [facility] Albumin [Mass/Vol]Ordered By : Avni Cash on 12-20-2024 Serum or plasma albumin measurement (mass/volume) 3.4 g/dL 3.2-5.0 [facility] Albumin to globulin ratioOrd ered By: Avni Cash on 12-20-2024 Albumin/Globulin [Mass ratio] 0.8 {ratio} Low 0.9-2.4 [facility] Albumin to globulin ratio 0.8 RATIO Low 0.9-2.4 [facility] Automated lymphocyte count a s percentage of total leukocytesOrdered By: Avni Cash on 12-20-2024 Lymphocytes/100 WBC Auto (Unsp spec) 13.2 % Low 19-41 [facility] Basophil percentageOrdered B y: Avni Cash on 12-20-2024 Basophils/100 WBC (Bld) 0.5 % 0-1 [facility] Basophil percentage 0.5 % 0-1 [facility] Bilirubin Test strip Ql (U)O rdered By: Avni Cash on 12-20-2024 Bilirubin Ql (U) Negative Negative [facility] Bilirubin, totalOrdered By: Avni Cash on 12-20-2024 Bilirubin [Mass/Vol] 0.70 mg/dL 0.20-1.00 [facility] Comment on above: For patients on eltr ombopag therapy, use of Dimension Sprakers TBIL is not recommended. Bilirubin, total 0.70 mg/dL 0.20-1.00 [facility] Blood urea nitrogen (BUN)/cr eatinine ratioOrdered By: Avni Cash on 12-20-2024 Urea nitrogen/Creatinine [Mass ratio] 11.2 mg/mg 08-19 [facility] Blood urea nitrogen (BUN)/creatinine ratio 11.2 RATIO 08-19 [facility] CBC W/Diff, Automatedon 12-02 Absolute Lymph 1.10 X10 3/uL Normal 0.83-4.51 [facility] Comment on above: Performed By: #### L 501.080 #### [facility] [address] [place], [address] Absolute Neut 6.6 X10 3/uL Normal 2.0-7.7 [facility] Comment on above: Performed By: #### L 501.080 #### [facility] [address] [place], [address] Basophils/100 WBC (Bld) 0.5 % Normal 0-1 [facility] Comment on above: Performed By: #### L 501.080 #### [facility] [address] [place], [address] Eosinophils/100 WBC (Bld) 1.7 % Normal 0-5 [facility] Comment on above: Performed By: #### L 501.080 #### [facility] [address] [place], [address] Erythrocyte distribution width (RBC) [Ratio] 13.9 % Normal 11.6-14.6 [facility] Comment on above: Performed By: #### L 501.080 #### [facility] [address] [place], [address] Hematocrit (Bld) [Volume fraction] 40.7 % Normal 40-54 [facility] Comment on above: Performed By: #### L 501.080 #### [facility] [address] [place], [address] Hemoglobin (Bld) [Mass/Vol] 14.4 g/dL Normal 13.0-16.5 [facility] Comment on above: Performed By: #### L 501.080 #### [facility] [address] [place], [address] IG% 0.800 Normal 0.0-0.9 [facility] Comment on above: Result Comment: IG% - Immature Granulocytes (promyelocytes, myelocytes and metamyelocytes) > 1% indicates that a LEFT SHIFT is Present. Performed By: #### L 501.080 #### [facility] [address] [place], [address] Lymphocytes/100 WBC (Bld) 13.2 % Low 19-41 [facility] Comment on above: Performed By: #### L 501.080 #### [facility] [address] [place], [address] MCH (RBC) [Entitic mass] 29.1 pg Normal 27.0-32.0 [facility] Comment on above: Performed By: #### L 501.080 #### [facility] [address] [place], [address] MCHC (RBC) [Mass/Vol] 35.4 g/dL Normal 32-[address] [facility] Comment on above: Performed By: #### L 501.080 #### [facility] [address] [place], [address] MCV (RBC) [Entitic vol] 82.2 fL Normal 80-94 [facility] Comment on above: Performed By: #### L 501.080 #### [facility] [address] [place], [address] Monocytes/100 WBC (Bld) 5.3 % Normal 0-10 [facility] Comment on above: Performed By: #### L 501.080 #### [facility] [address] [place], [address] Neutrophils/100 WBC (Bld) 78.5 % High 47-70 [facility] Comment on above: Performed By: #### L 501.080 #### [facility] [address] [place], [address] Nucleated RBC (Bld) [#/Vol] 0 10*3/uL Normal 0-5 [facility] Comment on above: Performed By: #### L 501.080 #### [facility] [address] [place], [address] Platelet mean volume (Bld) [Entitic vol] 9.3 fL Normal 6.2-12.0 [facility] Comment on above: Performed By: #### L 501.080 #### [facility] [address] [place], [address] Platelets (Bld) [#/Vol] 281 10*3/uL Normal 150-450 [facility] Comment on above: Performed By: #### L 501.080 #### [facility] [address] [place], [address] RBC (Bld) [#/Vol] 4.95 10*6/uL Normal 4.6-6.2 [facility] Comment on above: Performed By: #### L 501.080 #### [facility] [address] [place], [address] RDW SD 41.1 fl Normal 35.1-43.9 [facility] Comment on above: Performed By: #### L 501.080 #### [facility] [address] [place], [place], [address] WBC (Bld) [#/Vol] 8.4 10*3/uL Normal 4.4-11.0 [facility] Comment on above: Performed By: #### L 501.080 #### [facility] [address] [place], [address] Calcium [Mass/Vol]Ordered By : Avni Cash on 12-20-2024 Serum or plasma calcium measurement (mass/volume) 9.7 mg/dL 8.5-10.1 [facility] Carbon dioxide measurementOr dered By: Avni Cash on 12-20-2024 CO2 [Moles/Vol] 31.0 mmol/L 21.0-32.0 [facility] Carbon dioxide measurement 31.0 mmol/L 21.0-32.0 [facility] Chloride measurementOrdered By: Avni Cash on 12-20-2024 Chloride [Moles/Vol] 99 mmol/L 98-107 [facility] Chloride measurement 99 mmol/L 98-107 [facility] Clarity (U)Ordered By: Avni Cash on 12-20-2024 Urine clarity Clear Clear [facility] Color (U)Ordered By: Avni hauser on 12-20-2024 Urine color determination Yellow Yellow [facility] Comprehensive Metabolic Prof ilon 12-20-2024 Albumin [Mass/Vol] 3.4 g/dL Normal 3.2-5.0 [facility] Comment on above: Performed By: #### L 501.080 #### [facility] [address] [place], [place], [address] Albumin/Globulin [Mass ratio] 0.8 {ratio} Low 0.9-2.4 [facility] Comment on above: Performed By: #### L 501.080 #### [facility] [address] [place], [address] ALK P 117 U/L Normal 45-117 [facility] Comment on above: Performed By: #### L 501.080 #### [facility] [address] [place], [address] ALT [Catalytic activity/Vol] 16 U/L Normal 16-61 [facility] Comment on above: Performed By: #### L 501.080 #### [facility] [address] [place], [address] AST [Catalytic activity/Vol] 8 U/L Low 15-37 [facility] Comment on above: Performed By: #### L 501.080 #### [facility] [address] [place], [address] Bilirubin [Mass/Vol] 0.70 mg/dL Normal 0.20-1.00 [facility] Comment on above: Result Comment: For patients on eltrombopag therapy, use of Dimension Sprakers TBIL is not recommended. Performed By: #### L 501.080 #### [facility] [address] [place], [address] BUN/CRE 11.2 RATIO Normal 10-20 [facility] Comment on above: Performed By: #### L 501.080 #### [facility] [address] [place], [address] CA,Total 9.7 mg/dL Normal 8.5-10.1 [facility] Comment on above: Performed By: #### L 501.080 #### [facility] [address] [place], [address] Chloride [Moles/Vol] 99 mmol/L Normal 98-107 [facility] Comment on above: Performed By: #### L 501.080 #### [facility] [address] [place], [address] CO2 [Moles/Vol] 31.0 mmol/L Normal 21.0-32.0 [facility] Comment on above: Performed By: #### L 501.080 #### [facility] [address] [place], [address] Creatinine [Mass/Vol] 0.89 mg/dL Normal 0.70-1.[address] [facility] Comment on above: Result Comment: The validity of the calculated GFR GFRAA in patients over 70 years has not been determined. Clinical correlation is essential. Performed By: #### L 501.080 #### [facility] [address] [place], [address] EST GFR - AA 110 mL/min Normal >60 [facility] Comment on above: Result Comment: Afri can [place] GFR Calc Performed By: #### L 501.080 #### [facility] [address] [place], [address] GAP 5 Normal 5-15 [facility] Comment on above: Performed By: #### L 501.080 #### [facility] [address] [place], [address] GFR/1.73 sq M.predicted among non-blacks MDRD (S/P/Bld) [Vol rate/Area] 91 mL/min/{1.73_m2} Normal >60 [facility] Comment on above: Result Comment: Non- GFR Calc Performed By: #### L 501.080 #### [facility] [address] [place], [address] Globulin (S) [Mass/Vol] 4.1 g/dL Normal 2.2-4.2 [facility] Comment on above: Performed By: #### L 501.080 #### [facility] [address] [place], [address] Glucose [Mass/Vol] 424 mg/dL High 74-106 [facility] Comment on above: Result Comment: Gluc ose result greater than or equal to 200 mg/dL suggests DIABETES MELLITUS per A.D.A. criteria. Performed By: #### L 501.080 #### [facility] [address] [place], [address] Potassium [Moles/Vol] 4.3 mmol/L Normal 3.5-5.[address] [facility] Comment on above: Performed By: #### L 501.080 #### [facility] [address] [place], [address] Sodium [Moles/Vol] 135 mmol/L Low 136-145 [facility] Comment on above: Performed By: #### L 501.080 #### [facility] [address] [place], [address] T PROT 7.5 g/dL Normal 6.4-8.2 [facility] Comment on above: Performed By: #### L 501.080 #### [facility] [address] [place], [address] Urea nitrogen [Mass/Vol] 10 mg/dL Normal 7-18 [facility] Comment on above: Performed By: #### L 501.080 #### [facility] [address] [place], [address] Creatinine [Mass/Vol]Ordered By: Avni Cash on 12-20-2024 Serum or plasma creatinine measurement (mass/volume) 0.89 mg/dL 0.70-1.30 [facility] Emergency Department Summary on 12-20-2024 Emergency Department Summary [facility] Medical Records Department [address] [place] [address] Emergency Department Summary 12/20/24 MR#: [id number] Acct: [id number] Name: JERALD YODER Rep #: [id number] : 1960 64 From: Avni Cash MD [...] Genitourinary G (more content not included)... Normal [facility] Eosinophil percentageOrdered By: Avni Cash on 12-20-2024 Eosinophils/100 WBC (Bld) 1.7 % 0-5 [facility] Eosinophil percentage 1.7 % 0-[address] [facility] Erythrocyte distribution wid th (RBC) [Ratio]Ordered By: Avni Cash on 12-20-2024 Erythrocyte distribution width ratio 13.9 % 11.6-14.6 [facility] Erythrocyte distribution width standard deviation 41.1 fl 35.1-43.9 [facility] Erythrocyte distribution wid th ratioOrdered By: Avni Cash on 12-20-2024 Erythrocyte distribution width (RBC) [Ratio] 13.9 % 11.6-14.6 [facility] Erythrocyte distribution wid th standard deviationOrdered By: Avni Cash on 12-20-2024 Erythrocyte distribution width (RBC) [Ratio] 41.1 fl 35.1-43.9 [facility] Estimated glomerular filtrat ion rate (GFR) AmericanOrdered By: Avni Cash on 12-20-2024 Estimated glomerular filtration rate (GFR) 110 mL/min >60 [facility] Glomerular filtration rate ( GFR) estimationOrdered By: Avni Cash on 12-20-2024 GFR/1.73 sq M.predicted among non-blacks MDRD (S/P/Bld) [Vol rate/Area] 91 mL/min/{1.73_m2} >60 [facility] Comment on above: Non- GFR Calc Glomerular filtration rate (GFR) estimation 91 mL/min >60 [facility] Glucose Ql (U)Ordered By: Vitor Cash on 12-20-2024 Urine glucose detection 1000 mg/dl High Normal [facility] Glucose measurementOrdered B y: Avni Cash on 12-20-2024 Glucose [Mass/Vol] 424 mg/dL High 74-106 [facility] Comment on above: Glucose result great er than or equal to 200 mg/dLsuggests DIABETES MELLITUS per A.D.A. criteria. Glucose measurement 424 mg/dL High 74-106 [facility] Hematocrit Auto (Bld) [Volum e fraction]Ordered By: Avni Cash on 12-20-2024 Hematocrit (Bld) [Volume fraction] 40.7 % 40-54 [facility] Automated blood hematocrit (percentage) 40.7 % 40-54 [facility] Hemoglobin measurementOrdere d By: Avni Cash on 12-20-2024 Hemoglobin (Bld) [Mass/Vol] 14.4 g/dL 13.0-16.5 [facility] Hemoglobin measurement 14.4 g/dL 13.0-16.5 [facility] Hyaline casts LM.LPF (Urine sed) [#/Area]Ordered By: Avni Cash on 12-20-2024 Hyaline casts (Urine sed) [#/Area] 0 /[LPF] 0-5 [facility] Urine sediment hyaline cast count by microscopy (number/low power field) 0-5 SEEN /lpf 0-5 [facility] Immature granulocytes/100 WB C Auto (Bld)Ordered By: Avni Cash on 12-20-2024 Immature granulocytes/100 WBC (Bld) 0.800 % 0.0-0.9 [facility] Comment on above: IG% - Immature Granu locytes (promyelocytes, myelocytes and metamyelocytes) > 1% indicates that a LEFT SHIFT is Present. Automated immature granulocyte percentage 0.800 % 0.0-0.9 [facility] Ketones Test strip Ql (U)Ord ered By: Avni Cash on 12-20-2024 Ketones Ql (U) Negative Negative [facility] - Chemistry and C hemistry - challengeOrdered By: Avni Cash on 12-20-2024 AST [Catalytic activity/Vol] 8 U/L Low 15-37 [facility] Lipaseon 12-20-2024 Lipase [Catalytic activity/Vol] 13 U/L Low 73-393 [facility] Comment on above: Performed By: #### L 501.080 #### [facility] [place], [address] Lipase measurementOrdered By : Avni Cash on 12-20-2024 Lipase [Catalytic activity/Vol] 13 U/L Low 73-393 [facility] Lipase measurement 13 U/L Low 73-393 [facility] Lymphocytes Auto (Unsp spec) [#/Vol]Ordered By: Avni Cash on 12-20-2024 Absolute lymphocyte count 1.10 X10^3/uL 0.83-4.51 [facility] Lymphocytes/100 WBC Auto (Un sp spec)Ordered By: Avni Cash on 12-20-2024 Automated lymphocyte count as percentage of total leukocytes 13.2 % Low 19-41 [facility] MCV (RBC) [Entitic vol]Order ed By: Avni Cash on 12-20-2024 MCV (mean corpuscular volume) determination 82.2 fL 80-94 [facility] MCV (mean corpuscular volume ) determinationOrdered By: Avni Cash on 12-20-2024 MCV (RBC) [Entitic vol] 82.2 fL 80-94 [facility] Mean corpuscular hemoglobin (MCH) determinationOrdered By: Avni Cash on 12-20-2024 MCH (RBC) [Entitic mass] 29.1 pg 27.0-32.0 [facility] Mean corpuscular hemoglobin (MCH) determination 29.1 pg 27.0-32.0 [facility] Mean corpuscular hemoglobin concentration (MCHC) determinationOrdered By: Avni Cash on 12-20-2024 MCHC (RBC) [Mass/Vol] 35.4 g/dL 32-[address] [facility] Mean corpuscular hemoglobin concentration (MCHC) determination 35.4 g/dL 32-36 [facility] Mean platelet volume determi nationOrdered By: Avni Cash on 12-20-2024 Platelet mean volume (Bld) [Entitic vol] 9.3 fL 6.2-12.0 [facility] Mean platelet volume determination 9.3 fl 6.2-12.0 [facility] Microscopic analysis of urin e for red blood cells (RBC)Ordered By: Avni Cash on 12-20-2024 Microscopic analysis of urine for red blood cells (RBC) 0-5 SEEN /hpf 0-5 [facility] Monocyte percentageOrdered B y: Avni Cash on 12-20-2024 Monocytes/100 WBC (Bld) 5.3 % 0-10 [facility] Monocyte percentage 5.3 % 0-10 [facility] Mucus LM Ql (Urine sed)Order ed By: Avni Cash on 12-20-2024 Mucus Ql (Urine sed) 0 SEEN /hpf [facility] Neutrophil percentageOrdered By: Avni Cash on 12-20-2024 Neutrophils/100 WBC (Bld) 78.5 % High 47-70 [facility] Neutrophil percentage 78.5 % High 47-[address] [facility] Nitrite Test strip Ql (U)Ord ered By: Avni Cash on 12-20-2024 Nitrite Ql (U) Negative Negative [facility] No Panel InformationOrdered By: Avni Cash on 12-20-2024 8 U/L Low 15-37 [facility] Nucleated red blood cell per centageOrdered By: Avni Cash on 12-20-2024 Nucleated RBC/100 WBC (Bld) [Ratio] 0 % 0-5 [facility] Nucleated red blood cell percentage 0 % 0-5 [facility] Platelet countOrdered By: Vitor Cash on 12-20-2024 Platelets (Bld) [#/Vol] 281 10*3/uL 150-450 [facility] Platelet count 281 K/mm3 150-450 [facility] Potassium measurementOrdered By: Avni Cash on 12-20-2024 Potassium [Moles/Vol] 4.3 mmol/L 3.5-5.[address] [facility] Potassium measurement 4.3 mmol/L 3.5-5.[address] [facility] Protein Test strip Ql (U)Ord ered By: Avni Cash on 12-20-2024 Protein Ql (U) Negative Negative [facility] RBC Auto (Bld) [#/Vol]Ordere d By: Avni Cash on 12-20-2024 RBC (Bld) [#/Vol] 4.95 10*6/uL 4.6-6.2 [facility] Automated blood erythrocyte count 4.95 M/mm3 4.6-6.2 [facility] Serum anion gap measurementO rdered By: Avni Cash on 12-20-2024 Anion gap [Moles/Vol] 5 mmol/L 5-[address] [facility] Serum anion gap measurement 5 5-15 [facility] Serum globulin measurementOr dered By: Avni Cash on 12-20-2024 Globulin (S) [Mass/Vol] 4.1 g/dL 2.2-4.2 [facility] Serum globulin measurement 4.1 g/dL 2.2-4.2 [facility] Serum or plasma alanine wagoner otransferase (ALT) measurementOrdered By: Avni Cash on 12-20-2024 ALT [Catalytic activity/Vol] 16 U/L 16-61 [facility] Serum or plasma albumin yayo urement (mass/volume)Ordered By: Avni Cash on 12-20-2024 Albumin [Mass/Vol] 3.4 g/dL 3.2-5.0 [facility] Serum or plasma alkaline andrzej sphatase measurementOrdered By: Avni Cash on 12-20-2024 ALP [Catalytic activity/Vol] 117 U/L 45-117 [facility] Serum or plasma calcium yayo urement (mass/volume)Ordered By: Avni Cash on 12-20-2024 Calcium [Mass/Vol] 9.7 mg/dL 8.5-10.1 [facility] Serum or plasma creatinine m easurement (mass/volume)Ordered By: Avni Cash on 12-20-2024 Creatinine [Mass/Vol] 0.89 mg/dL 0.70-1.[address] [facility] Comment on above: The validity of the calculated GFR & GFRAA in patients over 70 years has not been determined. Clinical correlation is essential. Serum or plasma urea nitroge n measurement (mass/volume)Ordered By: Avni Cash on 12-20-2024 Urea nitrogen [Mass/Vol] 10 mg/dL 7-18 [facility] Sodium levelOrdered By: Avni Cash on 12-20-2024 Sodium [Moles/Vol] 135 mmol/L Low 136-145 [facility] Sodium level 135 mmol/L Low 136-145 [facility] Specific gravity (U) [Rel de nsity]Ordered By: Avni Cash on 12-20-2024 Urine specific gravity measurement 1.010 1.002-1.030 [facility] Squamous epithelial cells de tection in urine sediment by light microscopyOrdered By: Avni Cash on 12-20-2024 Epithelial cells.squamous LM Ql (Urine sed) 0 SEEN /hpf 0-5 [facility] Squamous epithelial cells detection in urine sediment by light microscopy 0 SEEN /hpf [facility] Total proteinOrdered By: Geovani Cash on 12-20-2024 Protein [Mass/Vol] 7.5 g/dL 6.4-8.2 [facility] Total protein 7.5 g/dL 6.4-8.2 [facility] Urea nitrogen [Mass/Vol]Orde red By: Avni Cash on 12-20-2024 Serum or plasma urea nitrogen measurement (mass/volume) 10 mg/dL 7-18 [facility] Urinalysis, Completeon 12-20 CAST,HYALINE 0-5 SEEN Normal 0-5 [facility] Comment on above: Order Comment: CLEAN CATCH Performed By: #### L 501.080 #### [facility] [address] [place], [address] RBC 0-5 SEEN Normal 0-5 [facility] Comment on above: Order Comment: CLEAN CATCH Performed By: #### L 501.080 #### [facility] [address] [place], [address] WBC 0-5 SEEN Normal 0-5 [facility] Comment on above: Order Comment: CLEAN CATCH Performed By: #### L 501.080 #### [facility] [address] [place], [address] YEAST 1+ /hpf Normal None Seen [facility] Comment on above: Order Comment: CLEAN CATCH Performed By: #### L 501.080 #### [facility] [address] [place], [address] BACTERIA 0 SEEN Normal None Seen [facility] Comment on above: Order Comment: CLEAN CATCH Performed By: #### L 501.080 #### [facility] [address] [place], [address] EPI,SQUAMOUS 0 SEEN Normal 0-5 [facility] Comment on above: Order Comment: CLEAN CATCH Performed By: #### L 501.080 #### [facility] [address] [place], [address] Mucus Ql (Urine sed) 0 SEEN Normal [facility] Comment on above: Order Comment: CLEAN CATCH Performed By: #### L 501.080 #### [facility] [place], [address] Urine blood detectionOrdered By: Avni Cash on 12-20-2024 Urine blood detection 10 /ul High Negative [facility] Urine clarityOrdered By: Geovani Cash on 12-20-2024 Clarity (U) Clear Clear [facility] Urine color determinationOrd ered By: Avni Cash on 12-20-2024 Color (U) Yellow Yellow [facility] Urine glucose detectionOrder ed By: Avni Cash on 12-20-2024 Glucose Ql (U) 1000 mg/dl High Normal [facility] Urine leukocyte esterase det ection by dipstickOrdered By: Avni Cash on 12-20-2024 Leukocyte esterase Test strip Ql (U) Negative Negative [facility] Urine pHOrdered By: Avni jiang on 12-20-2024 pH (U) 5.0 [pH] 5.0 - 8.0 [facility] Urine sediment bacteria coun t by microscopy (number/high power field)Ordered By: Anvi Cash on 12-20-2024 Bacteria LM.HPF (Urine sed) [#/Area] 0 /[HPF] None Seen [facility] Urine sediment yeast count b y microscopy (number/high powered field)Ordered By: Avni Cash on 12-20-2024 Yeast LM.HPF (Urine sed) [#/Area] 1 /[HPF] None Seen [facility] Urine specific gravity measu rementOrdered By: Avni Cash on 12-20-2024 Specific gravity (U) [Rel density] 1.010 1.002-1.030 [facility] Urine total bilirubin detect ion by test stripOrdered By: Avni Cash on 12-20-2024 Urine total bilirubin detection by test strip Negative Negative [facility] Urine urobilinogen measureme ntOrdered By: Avni Cash on 12-20-2024 Urobilinogen Ql (U) Normal mg/dl Normal [facility] Urobilinogen Ql (U)Ordered B y: Avni Cash on 12-20-2024 Urine urobilinogen measurement Normal mg/dl Normal [facility] White blood cell (WBC) count Ordered By: Avni Cash on 12-20-2024 WBC (Bld) [#/Vol] 8.4 10*3/uL 4.4-11.0 [facility] White blood cell (WBC) count 8.4 K/mm3 4.4-11.0 [facility] White blood cell countOrdere d By: Avni Cash on 12-20-2024 White blood cell count 0-5 SEEN /hpf 0-5 [facility] White blood cell count 0-5 SEEN /hpf 0-5 [facility] Yeast LM.HPF (Urine sed) [#/ Area]Ordered By: Avni aCsh on 12-20-2024 Urine sediment yeast count by microscopy (number/high powered field) 1+ /hpf None Seen [facility] pH (U)Ordered By: Avni pena on 12-20-2024 Urine pH 5.0 5.0 - 8.0 [facility] CNOVon 12-14-2024 CNOV Office Visit ([facility] ) JERALD YODER ([id number]) 1960 M Date Time Provider [facility] During your visit today, we recorded the following information about you: Temperature Pulse Respiration Blood pressure 97.1 degrees 77/minute 18/minute 105/70 Weight 98.7 kg Ion Alfaro APRN.ASPHALT PATCHER 12/14/2024 9:40 AM Signed This note was [...] - CETIRIZINE 10 MG TABLET Ion Alfaro APRN.ASPHALT PATCHER Allergies As of Date: 12/14/2024 Noted Allergy Reaction BEE STING 06/22/2011 7 - Swelling BENEDRYL (DIPHENHYDRAMINE) 06/22/2011 7 - Swelling PENICILLINS 06/22/2011 2 - Rash Date Reviewed: 12/14/2024 Reviewed by: Ion Alfaro APRN.ASPHALT PATCHER - Fully Assessed Reason for Visit: Ear Problem [38] Cmt: Bilateral clogged x1 day Primary Visit Diagnosis:Eustachian tube dysfunction, bilateral [H69.93] Order(s):fluticasone (FLONASE ALLERGY RELIEF) 50 mcg/actuation nasal sprayUse 1 [place] in each nostril once daily.Disp: 9.9 mLRfl: 0 cetirizine (ZYRTEC) 10 mg tabletTake 1 tablet by mouth once daily for 14 days.Disp: 14 tabletRfl: 0 Prescriptions as of 12/14/2024 - fluticasone (FLONASE ALLERGY RELIEF) 50 mcg/actuation nasal spray Use 1 [place] in each nostril once daily. - cetirizine [...] Dx: 250.02. (more content not included)... Normal [facility] ALP [Catalytic activity/Vol] Ordered By: Barry Mathew on 12-08-2024 Serum or plasma alkaline phosphatase measurement 98 U/L 45-117 [facility] ALT [Catalytic activity/Vol] Ordered By: Barry Mathew on 12-08-2024 Serum or plasma alanine aminotransferase (ALT) measurement 16 U/L 16-61 [facility] Absolute lymphocyte countOrd ered By: Barry Mathew on 12-08-2024 Lymphocytes Auto (Unsp spec) [#/Vol] 1.25 10*3/uL 0.83-4.51 [facility] Absolute neutrophil countOrd ered By: Barry Mathew on 12-08-2024 Neutrophils (Bld) [#/Vol] 4.1 10*3/uL 2.0-7.7 [facility] Absolute neutrophil count 4.1 X10^3/uL 2.0-7.7 [facility] Albumin [Mass/Vol]Ordered By : Barry Mathew on 12-08-2024 Serum or plasma albumin measurement (mass/volume) 3.5 g/dL 3.2-5.0 [facility] Albumin to globulin ratioOrd ered By: Barry Mathew on 12-08-2024 Albumin/Globulin [Mass ratio] 0.9 {ratio} 0.9-2.4 [facility] Albumin to globulin ratio 0.9 RATIO 0.9-2.4 [facility] Automated lymphocyte count a s percentage of total leukocytesOrdered By: Barry Mathew on 12-08-2024 Lymphocytes/100 WBC Auto (Unsp spec) 20.7 % 19-41 [facility] Bacteria LM.HPF (Urine sed) [#/Area]Ordered By: Barry Mathew on 12-08-2024 Urine sediment bacteria count by microscopy (number/high power field) 1+ /hpf None Seen [facility] Basophil percentageOrdered B y: Barry Mathew on 12-08-2024 Basophils/100 WBC (Bld) 0.7 % 0-1 [facility] Basophil percentage 0.7 % 0-1 [facility] Bilirubin Test strip Ql (U)O rdered By: Barry Mathew on 12-08-2024 Bilirubin Ql (U) Negative Negative [facility] Bilirubin, totalOrdered By: Barry Mathew on 12-08-2024 Bilirubin [Mass/Vol] 0.40 mg/dL 0.20-1.00 [facility] Comment on above: For patients on eltr ombopag therapy, use of Dimension [place] TBIL is not recommended. Bilirubin, total 0.40 mg/dL 0.20-1.00 [facility] Blood urea nitrogen (BUN)/cr eatinine ratioOrdered By: Barry Mathew on 12-08-2024 Urea nitrogen/Creatinine [Mass ratio] 14.2 mg/mg 08-19 [facility] Blood urea nitrogen (BUN)/creatinine ratio 14.2 RATIO 08-19 [facility] CBC W/Diff, Automatedon Absolute Lymph 1.25 X10 3/uL Normal 0.83-4.51 [facility] Comment on above: Performed By: #### L 500.2500, L501.4020, L100.0100 #### [facility] [address] [place], [address] Absolute Neut 4.1 X10 3/uL Normal 2.0-7.7 [facility] Comment on above: Performed By: #### L 500.2500, [id number], L100.0100 #### [facility] [address] [place], [address] Basophils/100 WBC (Bld) 0.7 % Normal 0-1 [facility] Comment on above: Performed By: #### L 500.2500, L501.4020, L100.0100 #### [facility] [address] [place], [address] Eosinophils/100 WBC (Bld) 3.8 % Normal 0-5 [facility] Comment on above: Performed By: #### L 500.2500, L501.4020, L100.0100 #### [facility] [address] [place], [address] Erythrocyte distribution width (RBC) [Ratio] 14.0 % Normal 11.6-14.6 [facility] Comment on above: Performed By: #### L 500.2500, L501.4020, L100.0100 #### [facility] [address] [place], [address] Hematocrit (Bld) [Volume fraction] 38.6 % Low 40-54 [facility] Comment on above: Performed By: #### L 500.2500, [id number], L100.0100 #### [facility] [address] [place], [address] Hemoglobin (Bld) [Mass/Vol] 13.6 g/dL Normal 13.0-16.5 [facility] Comment on above: Performed By: #### L 500.2500, L501.4020, L100.0100 #### [facility] [address] [place], [address] IG% 0.500 Normal 0.0-0.9 [facility] Comment on above: Result Comment: IG% - Immature Granulocytes (promyelocytes, myelocytes and metamyelocytes) > 1% indicates that a LEFT SHIFT is Present. Performed By: #### L 500.2500, L501.4020, L100.0100 #### [facility] [address] [place], [address] Lymphocytes/100 WBC (Bld) 20.7 % Normal 19-41 [facility] Comment on above: Performed By: #### L 500.2500, [id number], L100.0100 #### [facility] [address] [place], [address] MCH (RBC) [Entitic mass] 28.5 pg Normal 27.0-32.0 [facility] Comment on above: Performed By: #### L 500.2500, [id number], L100.0100 #### [facility] [address] [place], [address] MCHC (RBC) [Mass/Vol] 35.2 g/dL Normal 32-[address] [facility] Comment on above: Performed By: #### L 500.2500, [id number], L100.0100 #### [facility] [address] [place], [address] MCV (RBC) [Entitic vol] 80.9 fL Normal 80-94 [facility] Comment on above: Performed By: #### L 500.2500, [id number], L100.0100 #### [facility] [address] [place], [address] Monocytes/100 WBC (Bld) 7.1 % Normal 0-10 [facility] Comment on above: Performed By: #### L 500.2500, [id number], L100.0100 #### [facility] [address] [place], [address] Neutrophils/100 WBC (Bld) 67.2 % Normal 47-70 [facility] Comment on above: Performed By: #### L 500.2500, [id number], L100.0100 #### [facility] [address] [place], [address] Nucleated RBC (Bld) [#/Vol] 0 10*3/uL Normal 0-5 [facility] Comment on above: Performed By: #### L 500.2500, [id number], L100.0100 #### [facility] [address] [place], [address] Platelet mean volume (Bld) [Entitic vol] 8.9 fL Normal 6.2-12.0 [facility] Comment on above: Performed By: #### L 500.2500, [id number], L100.0100 #### [facility] [address] [place], [address] Platelets (Bld) [#/Vol] 226 10*3/uL Normal 150-450 [facility] Comment on above: Performed By: #### L 500.2500, [id number], L100.0100 #### [facility] [address] [place], [address] RBC (Bld) [#/Vol] 4.77 10*6/uL Normal 4.6-6.2 [facility] Comment on above: Performed By: #### L 500.2500, [id number], L100.0100 #### [facility] [address] [place], [address] RDW SD 40.5 fl Normal 35.1-43.9 [facility] Comment on above: Performed By: #### L 500.2500, [id number], L100.0100 #### [facility] [address] [place], [address] WBC (Bld) [#/Vol] 6.0 10*3/uL Normal 4.4-11.0 [facility] Comment on above: Performed By: #### L 500.2500, [id number], L100.0100 #### [facility] [address] [place], [address] Calcium [Mass/Vol]Ordered By : Barry Mathew on 12-08-2024 Serum or plasma calcium measurement (mass/volume) 9.0 mg/dL 8.5-10.1 [facility] Carbon dioxide measurementOr dered By: Barry Mathew on 12-08-2024 CO2 [Moles/Vol] 30.0 mmol/L 21.0-32.0 [facility] Carbon dioxide measurement 30.0 mmol/L 21.0-32.0 [facility] Chloride measurementOrdered By: Barry Mathew on 12-08-2024 Chloride [Moles/Vol] 100 mmol/L 98-107 [facility] Chloride measurement 100 mmol/L 98-107 [facility] Clarity (U)Ordered By: Barry Mathew on 12-08-2024 Urine clarity Clear Clear [facility] Color (U)Ordered By: Barry gordon on 12-08-2024 Urine color determination Yellow Yellow [facility] Comprehensive Metabolic Prof shyla 12-08-2024 Albumin [Mass/Vol] 3.5 g/dL Normal 3.2-5.0 [facility] Comment on above: Performed By: #### L 500.2500, [id number], L100.0100 #### [facility] [address] [place], [address] Albumin/Globulin [Mass ratio] 0.9 {ratio} Normal 0.9-2.4 [facility] Comment on above: Performed By: #### L 500.2500, L501.4020, L100.0100 #### [facility] [address] [place], [address] ALK P 98 U/L Normal 45-117 [facility] Comment on above: Performed By: #### L 500.2500, [id number], L100.0100 #### [facility] [address] [place], [address] ALT [Catalytic activity/Vol] 16 U/L Normal 16-61 [facility] Comment on above: Performed By: #### L 500.2500, L501.4020, L100.0100 #### [facility] [address] [place], [address] AST [Catalytic activity/Vol] 10 U/L Low 15-37 [facility] Comment on above: Performed By: #### L 500.2500, L501.4020, L100.0100 #### [facility] [address] [place], [address] Bilirubin [Mass/Vol] 0.40 mg/dL Normal 0.20-1.00 [facility] Comment on above: Result Comment: For patients on eltrombopag therapy, use of Dimension Sprakers TBIL is not recommended. Performed By: #### L 500.2500, L501.4020, L100.0100 #### [facility] [address] [place], [address] BUN/CRE 14.2 RATIO Normal 10-20 [facility] Comment on above: Performed By: #### L 500.2500, L501.4020, L100.0100 #### [facility] [address] [place], [address] CA,Total 9.0 mg/dL Normal 8.5-10.1 [facility] Comment on above: Performed By: #### L 500.2500, L501.4020, L100.0100 #### [facility] [address] [place], [address] Chloride [Moles/Vol] 100 mmol/L Normal 98-107 [facility] Comment on above: Performed By: #### L 500.2500, L501.4020, L100.0100 #### [facility] [address] [place], [address] CO2 [Moles/Vol] 30.0 mmol/L Normal 21.0-32.0 [facility] Comment on above: Performed By: #### L 500.2500, L501.4020, L100.0100 #### [facility] [address] [place], [address] Creatinine [Mass/Vol] 0.85 mg/dL Normal 0.70-1.[address] [facility] Comment on above: Result Comment: The validity of the calculated GFR GFRAA in patients over 70 years has not been determined. Clinical correlation is essential. Performed By: #### L 500.2500, L501.4020, L100.0100 #### [facility] [address] [place], [address] ECRCL 110.65 ml/min Normal [facility] Comment on above: Performed By: #### L 500.2500, L501.4020, L100.0100 #### [facility] [address] [place], [address] EST GFR - AA 117 mL/min Normal >60 [facility] Comment on above: Result Comment: Afri can [place] GFR Calc Performed By: #### L 500.2500, L501.4020, L100.0100 #### [facility] [address] [place], [address] GAP 6 Normal 5-15 [facility] Comment on above: Performed By: #### L 500.2500, L501.4020, L100.0100 #### [facility] [address] [place], [address] GFR/1.73 sq M.predicted among non-blacks MDRD (S/P/Bld) [Vol rate/Area] 97 mL/min/{1.73_m2} Normal >60 [facility] Comment on above: Result Comment: Non- GFR Calc Performed By: #### L 500.2500, L501.4020, L100.0100 #### [facility] [address] [place], [address] Globulin (S) [Mass/Vol] 3.8 g/dL Normal 2.2-4.2 [facility] Comment on above: Performed By: #### L 500.2500, L501.4020, L100.0100 #### [facility] [address] [place], [address] Glucose [Mass/Vol] 395 mg/dL High 74-106 [facility] Comment on above: Result Comment: Gluc ose result greater than or equal to 200 mg/dL suggests DIABETES MELLITUS per A.D.A. criteria. Performed By: #### L 500.2500, L501.4020, L100.0100 #### [facility] [address] [place], [address] Potassium [Moles/Vol] 3.9 mmol/L Normal 3.5-5.[address] [facility] Comment on above: Performed By: #### L 500.2500, L501.4020, L100.0100 #### [facility] [address] [place], [address] Sodium [Moles/Vol] 136 mmol/L Normal 136-145 [facility] Comment on above: Performed By: #### L 500.2500, L501.4020, L100.0100 #### [facility] [address] [place], [address] T PROT 7.3 g/dL Normal 6.4-8.2 [facility] Comment on above: Performed By: #### L 500.2500, L501.4020, L100.0100 #### [facility] [address] [place], [address] Urea nitrogen [Mass/Vol] 12 mg/dL Normal 7-18 [facility] Comment on above: Performed By: #### L 500.2500, L501.4020, L100.0100 #### [facility] [address] [place], [address] Creatinine [Mass/Vol]Ordered By: Barry Mathew on 12-08-2024 Serum or plasma creatinine measurement (mass/volume) 0.85 mg/dL 0.70-1.30 [facility] Emergency Department Summary on 12-08-2024 Emergency Department Summary [facility] Medical Records Department [address] [place] [address] Emergency Department Summary 12/08/24 MR#: [id number] Acct: [id number] Name: JERALD YODER Rep #: [id number] : 1960 64 From: Barry Mathew MD [...] 245. No other exacerbating or alleviating factors. [facility] Medical History Partial traumatic amputation of [...] 86 Respir (more content not included)... Normal [facility] Eosinophil percentageOrdered By: Barry Mathew on 12-08-2024 Eosinophils/100 WBC (Bld) 3.8 % 0-5 [facility] Eosinophil percentage 3.8 % 0-[address] [facility] Epithelial cells.squamous LM Ql (Urine sed)Ordered By: Barry Mathew on 12-08-2024 Squamous epithelial cells detection in urine sediment by light microscopy 0-5 SEEN /hpf 0-5 [facility] Erythrocyte distribution wid th (RBC) [Ratio]Ordered By: Barry Mathew on 12-08-2024 Erythrocyte distribution width ratio 14.0 % 11.6-14.6 [facility] Erythrocyte distribution width standard deviation 40.5 fl 35.1-43.9 [facility] Erythrocyte distribution wid th ratioOrdered By: Barry Mathew on 12-08-2024 Erythrocyte distribution width (RBC) [Ratio] 14.0 % 11.6-14.6 [facility] Erythrocyte distribution wid th standard deviationOrdered By: Barry Mathew on 12-08-2024 Erythrocyte distribution width (RBC) [Ratio] 40.5 fl 35.1-43.9 [facility] Estimated glomerular filtrat ion rate (GFR) AmericanOrdered By: Barry Mathew on 12-08-2024 Estimated glomerular filtration rate (GFR) 117 mL/min >60 [facility] Estimation of creatinine edinson aranceOrdered By: Barry Mathew on 12-08-2024 Estimation of creatinine clearance 110.65 ml/min [facility] Glomerular filtration rate ( GFR) estimationOrdered By: Barry Mathew on 12-08-2024 GFR/1.73 sq M.predicted among non-blacks MDRD (S/P/Bld) [Vol rate/Area] 97 mL/min/{1.73_m2} >60 [facility] Comment on above: Non- GFR Calc Glomerular filtration rate (GFR) estimation 97 mL/min >60 [facility] Glucose Ql (U)Ordered By: Franco Mathew on 12-08-2024 Urine glucose detection 1000 mg/dl High Normal [facility] Glucose measurementOrdered B y: Barry Mathew on 12-08-2024 Glucose [Mass/Vol] 395 mg/dL High 74-106 [facility] Comment on above: Glucose result great er than or equal to 200 mg/dLsuggests DIABETES MELLITUS per A.D.A. criteria. Glucose measurement 395 mg/dL High 74-106 [facility] Hematocrit Auto (Bld) [Volum e fraction]Ordered By: Barry Mathew on 12-08-2024 Hematocrit (Bld) [Volume fraction] 38.6 % Low 40-54 [facility] Automated blood hematocrit (percentage) 38.6 % Low 40-54 [facility] Hemoglobin measurementOrdere d By: Barry Mathew on 12-08-2024 Hemoglobin (Bld) [Mass/Vol] 13.6 g/dL 13.0-16.5 [facility] Hemoglobin measurement 13.6 g/dL 13.0-16.5 [facility] Immature granulocytes/100 WB C Auto (Bld)Ordered By: Barry Mathew on 12-08-2024 Immature granulocytes/100 WBC (Bld) 0.500 % 0.0-0.9 [facility] Comment on above: IG% - Immature Granu locytes (promyelocytes, myelocytes and metamyelocytes) > 1% indicates that a LEFT SHIFT is Present. Automated immature granulocyte percentage 0.500 % 0.0-0.9 [facility] Influenza virus A and B and SARS-CoV-2 (COVID-19) and Respiratory syncytial virus RNAOrdered By: Barry Mathew on 12-08-2024 SARS-CoV-2 (COVID-19) RNA IOANA+probe Ql (Unsp spec) [facility] Ketones Test strip Ql (U)Ord ered By: Barry Mathew on 12-08-2024 Ketones Ql (U) Negative Negative [facility] - Chemistry and C hemistry - challengeOrdered By: Barry Mathew on 12-08-2024 AST [Catalytic activity/Vol] 10 U/L Low 15-37 [facility] Lymphocytes Auto (Unsp spec) [#/Vol]Ordered By: Barry Mathew on 12-08-2024 Absolute lymphocyte count 1.25 X10^3/uL 0.83-4.51 [facility] Lymphocytes/100 WBC Auto (Un sp spec)Ordered By: Barry Mathew on 12-08-2024 Automated lymphocyte count as percentage of total leukocytes 20.7 % 19-41 [facility] M100.678on 12-08-2024 M100.678 Pending SARS-CoV-2 (COVID 19) Negative INFLUENZA A Negative INFLUENZA B Negative RSV PCR Negative Normal [facility] Comment on above: Performed By: #### L 400.0001, M100.678 ####[facility] [address] [place], [place], [id number] MCV (RBC) [Entitic vol]Order ed By: Barry Mathew on 12-08-2024 MCV (mean corpuscular volume) determination 80.9 fL 80-94 [facility] MCV (mean corpuscular volume ) determinationOrdered By: Barry Mathew on 12-08-2024 MCV (RBC) [Entitic vol] 80.9 fL 80-94 [facility] Mean corpuscular hemoglobin (MCH) determinationOrdered By: Barry Mathew on 12-08-2024 MCH (RBC) [Entitic mass] 28.5 pg 27.0-32.0 [facility] Mean corpuscular hemoglobin (MCH) determination 28.5 pg 27.0-32.0 [facility] Mean corpuscular hemoglobin concentration (MCHC) determinationOrdered By: Barry Mathew on 12-08-2024 MCHC (RBC) [Mass/Vol] 35.2 g/dL 32-[address] [facility] Mean corpuscular hemoglobin concentration (MCHC) determination 35.2 g/dL -36 [facility] Mean platelet volume determi nationOrdered By: Barry Mathew on 12-08-2024 Platelet mean volume (Bld) [Entitic vol] 8.9 fL 6.2-12.0 [facility] Mean platelet volume determination 8.9 fl 6.2-12.0 [facility] Microscopic analysis of urin e for red blood cells (RBC)Ordered By: Barry Mathew on 12-08-2024 Microscopic analysis of urine for red blood cells (RBC) 0 SEEN /hpf 0-5 [facility] Monocyte percentageOrdered B y: Barry Mathew on 12-08-2024 Monocytes/100 WBC (Bld) 7.1 % 0-10 [facility] Monocyte percentage 7.1 % 0-10 [facility] Mucus LM Ql (Urine sed)Order ed By: Barry Mathew on 12-08-2024 Mucus Ql (Urine sed) 0 SEEN /hpf [facility] Neutrophil percentageOrdered By: Barry Mathew on 12-08-2024 Neutrophils/100 WBC (Bld) 67.2 % 47-70 [facility] Neutrophil percentage 67.2 % 47-[address] [facility] Nitrite Test strip Ql (U)Ord ered By: Barry Mathew on 12-08-2024 Nitrite Ql (U) Negative Negative [facility] No Panel InformationOrdered By: Barry Mathew on 12-08-2024 10 U/L Low 15-37 [facility] Nucleated red blood cell per centageOrdered By: Barry Mathew on 12-08-2024 Nucleated RBC/100 WBC (Bld) [Ratio] 0 % 0-5 [facility] Nucleated red blood cell percentage 0 % 0-5 [facility] Platelet countOrdered By: Franco Mathew on 12-08-2024 Platelets (Bld) [#/Vol] 226 10*3/uL 150-450 [facility] Platelet count 226 K/mm3 150-450 [facility] Potassium measurementOrdered By: Barry Mathew on 12-08-2024 Potassium [Moles/Vol] 3.9 mmol/L 3.5-5.[address] [facility] Potassium measurement 3.9 mmol/L 3.5-5.[address] [facility] Protein Test strip Ql (U)Ord ered By: Barry Mathew on 12-08-2024 Protein Ql (U) Negative Negative [facility] RBC Auto (Bld) [#/Vol]Ordere d By: Barry Mathew on 12-08-2024 RBC (Bld) [#/Vol] 4.77 10*6/uL 4.6-6.2 [facility] Automated blood erythrocyte count 4.77 M/mm3 4.6-6.2 [facility] Serum anion gap measurementO rdered By: Barry Mathew on 12-08-2024 Anion gap [Moles/Vol] 6 mmol/L 5-[address] [facility] Serum anion gap measurement 6 5-15 [facility] Serum globulin measurementOr dered By: Barry Mathew on 12-08-2024 Globulin (S) [Mass/Vol] 3.8 g/dL 2.2-4.2 [facility] Serum globulin measurement 3.8 g/dL 2.2-4.2 [facility] Serum or plasma alanine wagoner otransferase (ALT) measurementOrdered By: Barry Mathew on 12-08-2024 ALT [Catalytic activity/Vol] 16 U/L 16-61 [facility] Serum or plasma albumin yayo urement (mass/volume)Ordered By: Barry Mathew on 12-08-2024 Albumin [Mass/Vol] 3.5 g/dL 3.2-5.0 [facility] Serum or plasma alkaline andrzej sphatase measurementOrdered By: Barry Mathew on 12-08-2024 ALP [Catalytic activity/Vol] 98 U/L 45-117 [facility] Serum or plasma calcium yayo urement (mass/volume)Ordered By: Barry Mathew on 12-08-2024 Calcium [Mass/Vol] 9.0 mg/dL 8.5-10.1 [facility] Serum or plasma creatinine m easurement (mass/volume)Ordered By: Barry Mathew on 12-08-2024 Creatinine [Mass/Vol] 0.85 mg/dL 0.70-1.[address] [facility] Comment on above: The validity of the calculated GFR & GFRAA in patients over 70 years has not been determined. Clinical correlation is essential. Serum or plasma urea nitroge n measurement (mass/volume)Ordered By: Barry Mathew on 12-08-2024 Urea nitrogen [Mass/Vol] 12 mg/dL 7-18 [facility] Sodium levelOrdered By: Barry Mathew on 12-08-2024 Sodium [Moles/Vol] 136 mmol/L 136-145 [facility] Sodium level 136 mmol/L 136-145 [facility] Specific gravity (U) [Rel de nsity]Ordered By: Barry Mathew on 12-08-2024 Urine specific gravity measurement 1.010 1.002-1.030 [facility] Squamous epithelial cells de tection in urine sediment by light microscopyOrdered By: Barry Mathew on 12-08-2024 Epithelial cells.squamous LM Ql (Urine sed) 0-5 SEEN /hpf 0-5 [facility] Total proteinOrdered By: Silva Mathew on 12-08-2024 Protein [Mass/Vol] 7.3 g/dL 6.4-8.2 [facility] Total protein 7.3 g/dL 6.4-8.2 [facility] Urea nitrogen [Mass/Vol]Orde red By: Barry Mathew on 12-08-2024 Serum or plasma urea nitrogen measurement (mass/volume) 12 mg/dL 7-18 [facility] Urinalysis, Completeon 12-08 BACTERIA 1+ /hpf Normal None Seen [facility] Comment on above: Order Comment: NO CTOR TO SPECIFY Performed By: #### L 400.0001, M100.678 ####[facility] [address] [place], [address] EPI,SQUAMOUS 0-5 SEEN Normal 0-5 [facility] Comment on above: Order Comment: NO CTOR TO SPECIFY Performed By: #### L 400.0001, M100.678 ####[facility] [address] [place], [address] RBC 0 SEEN Normal 0-5 [facility] Comment on above: Order Comment: NO CTOR TO SPECIFY Performed By: #### L 400.0001, M100.678 ####[facility] [address] [place], [address] Mucus Ql (Urine sed) 0 SEEN Normal [facility] Comment on above: Order Comment: NO CTOR TO SPECIFY Performed By: #### L 400.0001, M100.678 ####[facility] [address] [place], [address] WBC 0 SEEN Normal 0-5 [facility] Comment on above: Order Comment: COLLE CTOR TO SPECIFY Performed By: #### L 400.0001, M100.678 ####[facility] [address] [place], [address] Urine clarityOrdered By: Silva Mathew on 12-08-2024 Clarity (U) Clear Clear [facility] Urine color determinationOrd ered By: Barry Mathew on 12-08-2024 Color (U) Yellow Yellow [facility] Urine glucose detectionOrder ed By: Barry Mathew on 12-08-2024 Glucose Ql (U) 1000 mg/dl High Normal [facility] Urine leukocyte esterase det ection by dipstickOrdered By: Barry Mathew on 12-08-2024 Leukocyte esterase Test strip Ql (U) Negative Negative [facility] Urine pHOrdered By: Barry otoole on 12-08-2024 pH (U) 6.0 [pH] 5.0 - 8.0 [facility] Urine sediment bacteria coun t by microscopy (number/high power field)Ordered By: Barry Mathew on 12-08-2024 Bacteria LM.HPF (Urine sed) [#/Area] 1 /[HPF] None Seen [facility] Urine specific gravity measu rementOrdered By: Barry Mathew on 12-08-2024 Specific gravity (U) [Rel density] 1.010 1.002-1.030 [facility] Urine total bilirubin detect ion by test stripOrdered By: Barry Mathew on 12-08-2024 Urine total bilirubin detection by test strip Negative Negative [facility] Urine urobilinogen measureme ntOrdered By: Barry Mathew on 12-08-2024 Urobilinogen Ql (U) Normal mg/dl Normal [facility] Urobilinogen Ql (U)Ordered B y: Barry Mathew on 12-08-2024 Urine urobilinogen measurement Normal mg/dl Normal [facility] White blood cell (WBC) count Ordered By: Barry Mathew on 12-08-2024 WBC (Bld) [#/Vol] 6.0 10*3/uL 4.4-11.0 [facility] White blood cell (WBC) count 6.0 K/mm3 4.4-11.0 [facility] White blood cell countOrdere d By: Barry Mathew on 12-08-2024 White blood cell count 0 SEEN /hpf 0-5 [facility] White blood cell count 0 SEEN /hpf [facility] pH (U)Ordered By: Barry garcia on 12-08-2024 Urine pH 6.0 5.0 - 8.0 [facility] ALP [Catalytic activity/Vol] Ordered By: Pedro Krishnan on 11-27-2024 Serum or plasma alkaline phosphatase measurement 107 U/L 45-117 [facility] ALT [Catalytic activity/Vol] Ordered By: Pedro Krishnan on 11-27-2024 Serum or plasma alanine aminotransferase (ALT) measurement 16 U/L 16-61 [facility] Absolute lymphocyte countOrd ered By: Pedro Krishnan on 11-27-2024 Lymphocytes Auto (Unsp spec) [#/Vol] 1.51 10*3/uL 0.83-4.51 [facility] Absolute neutrophil countOrd ered By: Pedro Krishnan on 11-27-2024 Neutrophils (Bld) [#/Vol] 6.6 10*3/uL 2.0-7.7 [facility] Absolute neutrophil count 6.6 X10^3/uL 2.0-7.7 [facility] Albumin [Mass/Vol]Ordered By : Pedro Krishnan on 11-27-2024 Serum or plasma albumin measurement (mass/volume) 3.6 g/dL 3.2-5.0 [facility] Albumin to globulin ratioOrd ered By: Pedro Krishnan on 11-27-2024 Albumin/Globulin [Mass ratio] 1.0 {ratio} 0.9-2.4 [facility] Albumin to globulin ratio 1.0 RATIO 0.9-2.4 [facility] Automated lymphocyte count a s percentage of total leukocytesOrdered By: Pedro Krishnan on 11-27-2024 Lymphocytes/100 WBC Auto (Unsp spec) 16.8 % Low 19-41 [facility] Bacteria LM.HPF (Urine sed) [#/Area]Ordered By: Pedro Krishnan on 11-27-2024 Urine sediment bacteria count by microscopy (number/high power field) RARE /hpf None Seen [facility] Basophil percentageOrdered B y: Pedro Krishnan on 11-27-2024 Basophils/100 WBC (Bld) 0.7 % 0-1 [facility] Basophil percentage 0.7 % 0-1 [facility] Bilirubin Test strip Ql (U)O rdered By: Pedro Almanzarer on 11-27-2024 Bilirubin Ql (U) Negative Negative [facility] Bilirubin, totalOrdered By: Pedro Ariella on 11-27-2024 Bilirubin [Mass/Vol] 0.40 mg/dL 0.20-1.00 [facility] Comment on above: For patients on eltr ombopag therapy, use of Dimension Sprakers TBIL is not recommended. Bilirubin, total 0.40 mg/dL 0.20-1.00 [facility] Blood urea nitrogen (BUN)/cr eatinine ratioOrdered By: Pedro Krishnan on 11-27-2024 Urea nitrogen/Creatinine [Mass ratio] 12.7 mg/mg - [facility] Blood urea nitrogen (BUN)/creatinine ratio 12.7 RATIO 08-19 [facility] CBC W/Diff, Automatedon 11-01 Absolute Lymph 1.51 X10 3/uL Normal 0.83-4.51 [facility] Comment on above: Performed By: #### L 500.2500, L501.4020, L100.0100 #### [facility] [address] [place], [address] Absolute Neut 6.6 X10 3/uL Normal 2.0-7.7 [facility] Comment on above: Performed By: #### L 500.2500, L501.4020, L100.0100 #### [facility] [address] [place], [address] Basophils/100 WBC (Bld) 0.7 % Normal 0-1 [facility] Comment on above: Performed By: #### L 500.2500, L501.4020, L100.0100 #### [facility] [address] [place], [address] Eosinophils/100 WBC (Bld) 2.8 % Normal 0-5 [facility] Comment on above: Performed By: #### L 500.2500, L501.4020, L100.0100 #### [facility] [address] [place], [address] Erythrocyte distribution width (RBC) [Ratio] 14.2 % Normal 11.6-14.6 [facility] Comment on above: Performed By: #### L 500.2500, L501.4020, L100.0100 #### [facility] [address] [place], [address] Hematocrit (Bld) [Volume fraction] 41.1 % Normal 40-54 [facility] Comment on above: Performed By: #### L 500.2500, L501.4020, L100.0100 #### [facility] [address] [place], [address] Hemoglobin (Bld) [Mass/Vol] 14.2 g/dL Normal 13.0-16.5 [facility] Comment on above: Performed By: #### L 500.2500, L501.4020, L100.0100 #### [facility] [address] [place], [address] IG% 0.300 Normal 0.0-0.9 [facility] Comment on above: Result Comment: IG% - Immature Granulocytes (promyelocytes, myelocytes and metamyelocytes) > 1% indicates that a LEFT SHIFT is Present. Performed By: #### L 500.2500, L501.4020, L100.0100 #### [facility] [address] [place], [address] Lymphocytes/100 WBC (Bld) 16.8 % Low 19-41 [facility] Comment on above: Performed By: #### L 500.2500, L501.4020, L100.0100 #### [facility] [address] [place], [address] MCH (RBC) [Entitic mass] 28.2 pg Normal 27.0-32.0 [facility] Comment on above: Performed By: #### L 500.2500, L501.4020, L100.0100 #### [facility] [address] [place], [address] MCHC (RBC) [Mass/Vol] 34.5 g/dL Normal 32-[address] [facility] Comment on above: Performed By: #### L 500.2500, L501.4020, L100.0100 #### [facility] [address] [place], [address] MCV (RBC) [Entitic vol] 81.7 fL Normal 80-94 [facility] Comment on above: Performed By: #### L 500.2500, L501.4020, L100.0100 #### [facility] [address] [place], [address] Monocytes/100 WBC (Bld) 5.5 % Normal 0-10 [facility] Comment on above: Performed By: #### L 500.2500, L501.4020, L100.0100 #### [facility] [address] [place], [address] Neutrophils/100 WBC (Bld) 73.9 % High 47-70 [facility] Comment on above: Performed By: #### L 500.2500, L501.4020, L100.0100 #### [facility] [address] [place], [address] Nucleated RBC (Bld) [#/Vol] 0 10*3/uL Normal 0-5 [facility] Comment on above: Performed By: #### L 500.2500, L501.4020, L100.0100 #### [facility] [address] [place], [address] Platelet mean volume (Bld) [Entitic vol] 9.3 fL Normal 6.2-12.0 [facility] Comment on above: Performed By: #### L 500.2500, L501.4020, L100.0100 #### [facility] [address] [place], [address] Platelets (Bld) [#/Vol] 231 10*3/uL Normal 150-450 [facility] Comment on above: Performed By: #### L 500.2500, L501.4020, L100.0100 #### [facility] [address] [place], [address] RBC (Bld) [#/Vol] 5.03 10*6/uL Normal 4.6-6.2 [facility] Comment on above: Performed By: #### L 500.2500, L501.4020, L100.0100 #### [facility] [address] [place], [address] RDW SD 41.3 fl Normal 35.1-43.9 [facility] Comment on above: Performed By: #### L 500.2500, L501.4020, L100.0100 #### [facility] [address] [place], [address] WBC (Bld) [#/Vol] 9.0 10*3/uL Normal 4.4-11.0 [facility] Comment on above: Performed By: #### L 500.2500, L501.4020, L100.0100 #### [facility] [address] [place], [address] Calcium [Mass/Vol]Ordered By : Pedro Krishnan on 11-27-2024 Serum or plasma calcium measurement (mass/volume) 8.8 mg/dL 8.5-10.1 [facility] Carbon dioxide measurementOr dered By: Pedro Krishnan on 11-27-2024 CO2 [Moles/Vol] 22.0 mmol/L 21.0-32.0 [facility] Carbon dioxide measurement 22.0 mmol/L 21.0-32.0 [facility] Chloride measurementOrdered By: Pedro Krishnan on 11-27-2024 Chloride [Moles/Vol] 101 mmol/L 98-107 [facility] Chloride measurement 101 mmol/L 98-107 [facility] Clarity (U)Ordered By: Pedro Krishnan on 11-27-2024 Urine clarity Clear Clear [facility] Color (U)Ordered By: Pedro persaud on 11-27-2024 Urine color determination Yellow Yellow [facility] Comprehensive Metabolic Prof ilon 11-27-2024 Albumin [Mass/Vol] 3.6 g/dL Normal 3.2-5.0 [facility] Comment on above: Performed By: #### L 500.2500, L501.4020, L100.0100 #### [facility] [address] [place], [address] Albumin/Globulin [Mass ratio] 1.0 {ratio} Normal 0.9-2.4 [facility] Comment on above: Performed By: #### L 500.2500, L501.4020, L100.0100 #### [facility] [address] [place], [address] ALK P 107 U/L Normal 45-117 [facility] Comment on above: Performed By: #### L 500.2500, L501.4020, L100.0100 #### [facility] [address] [place], [address] ALT [Catalytic activity/Vol] 16 U/L Normal 16-61 [facility] Comment on above: Performed By: #### L 500.2500, L501.4020, L100.0100 #### [facility] [address] [place], [address] AST [Catalytic activity/Vol] 11 U/L Low 15-37 [facility] Comment on above: Performed By: #### L 500.2500, L501.4020, L100.0100 #### [facility] [address] [place], [address] Bilirubin [Mass/Vol] 0.40 mg/dL Normal 0.20-1.00 [facility] Comment on above: Result Comment: For patients on eltrombopag therapy, use of Dimension Sprakers TBIL is not recommended. Performed By: #### L 500.2500, L501.4020, L100.0100 #### [facility] [address] [place], [address] BUN/CRE 12.7 RATIO Normal 10-20 [facility] Comment on above: Performed By: #### L 500.2500, L501.4020, L100.0100 #### [facility] [address] [place], [address] CA,Total 8.8 mg/dL Normal 8.5-10.1 [facility] Comment on above: Performed By: #### L 500.2500, L501.4020, L100.0100 #### [facility] [address] [place], [address] Chloride [Moles/Vol] 101 mmol/L Normal 98-107 [facility] Comment on above: Performed By: #### L 500.2500, L501.4020, L100.0100 #### [facility] [address] [place], [address] CO2 [Moles/Vol] 22.0 mmol/L Normal 21.0-32.0 [facility] Comment on above: Performed By: #### L 500.2500, L501.4020, L100.0100 #### [facility] [address] [place], [address] Creatinine [Mass/Vol] 0.94 mg/dL Normal 0.70-1.[address] [facility] Comment on above: Result Comment: The validity of the calculated GFR GFRAA in patients over 70 years has not been determined. Clinical correlation is essential. Performed By: #### L 500.2500, L501.4020, L100.0100 #### [facility] [address] [place], [address] EST GFR - AA 103 mL/min Normal >60 [facility] Comment on above: Result Comment: Afri can [place]egales[place] GFR Calc Performed By: #### L 500.2500, L501.4020, L100.0100 #### [facility] [address] [place], [address] GAP 10 Normal 5-15 [facility] Comment on above: Performed By: #### L 500.2500, L501.4020, L100.0100 #### [facility] [address] [place], [address] GFR/1.73 sq M.predicted among non-blacks MDRD (S/P/Bld) [Vol rate/Area] 86 mL/min/{1.73_m2} Normal >60 [facility] Comment on above: Result Comment: Non- GFR Calc Performed By: #### L 500.2500, L501.4020, L100.0100 #### [facility] [address] [place], [address] Globulin (S) [Mass/Vol] 3.7 g/dL Normal 2.2-4.2 [facility] Comment on above: Performed By: #### L 500.2500, L501.4020, L100.0100 #### [facility] [address] [place], [address] Glucose [Mass/Vol] 373 mg/dL High 74-106 [facility] Comment on above: Result Comment: Gluc ose result greater than or equal to 200 mg/dL suggests DIABETES MELLITUS per A.D.A. criteria. Performed By: #### L 500.2500, L501.4020, L100.0100 #### [facility] [address] [place], [address] Potassium [Moles/Vol] 3.8 mmol/L Normal 3.5-5.[address] [facility] Comment on above: Performed By: #### L 500.2500, L501.4020, L100.0100 #### [facility] [address] [place], [address] Sodium [Moles/Vol] 133 mmol/L Low 136-145 [facility] Comment on above: Performed By: #### L 500.2500, L501.4020, L100.0100 #### [facility] [address] [place], [address] T PROT 7.3 g/dL Normal 6.4-8.2 [facility] Comment on above: Performed By: #### L 500.2500, L501.4020, L100.0100 #### [facility] [address] [place], [address] Urea nitrogen [Mass/Vol] 12 mg/dL Normal 7-18 [facility] Comment on above: Performed By: #### L 500.2500, L501.4020, L100.0100 #### [facility] [address] [place], [address] Creatinine [Mass/Vol]Ordered By: Pedro Krishnan on 11-27-2024 Serum or plasma creatinine measurement (mass/volume) 0.94 mg/dL 0.70-1.30 [facility] Emergency Department Summary on 11-27-2024 Emergency Department Summary [facility] Medical Records Department [address] [place] [address] Emergency Department Summary 11/27/24 MR#: [id number] Acct: [id number] Name: JERALD YODER Rep #: [id number] : 1960 64 From: Pedro Krishnan DO [...] this and he has been passing gas. [facility] Medical History Partial traumatic amputation of [...] no juana (more content not included)... Normal [facility] Eosinophil percentageOrdered By: Pedro Krishnan on 11-27-2024 Eosinophils/100 WBC (Bld) 2.8 % 0-5 [facility] Eosinophil percentage 2.8 % 0-[address] [facility] Erythrocyte distribution wid th (RBC) [Ratio]Ordered By: Pedro Krishnan on 11-27-2024 Erythrocyte distribution width ratio 14.2 % 11.6-14.6 [facility] Erythrocyte distribution width standard deviation 41.3 fl 35.1-43.9 [facility] Erythrocyte distribution wid th ratioOrdered By: Pedro Krishnan on 11-27-2024 Erythrocyte distribution width (RBC) [Ratio] 14.2 % 11.6-14.6 [facility] Erythrocyte distribution wid th standard deviationOrdered By: Pedro Krishnan on 11-27-2024 Erythrocyte distribution width (RBC) [Ratio] 41.3 fl 35.1-43.9 [facility] Estimated glomerular filtrat ion rate (GFR) AmericanOrdered By: Pedro Krishnan on 11-27-2024 Estimated glomerular filtration rate (GFR) 103 mL/min >60 [facility] Glomerular filtration rate ( GFR) estimationOrdered By: Pedro Krishnan on 11-27-2024 GFR/1.73 sq M.predicted among non-blacks MDRD (S/P/Bld) [Vol rate/Area] 86 mL/min/{1.73_m2} >60 [facility] Comment on above: Non- GFR Calc Glomerular filtration rate (GFR) estimation 86 mL/min >60 [facility] Glucose Ql (U)Ordered By: Bridger Krishnan on 11-27-2024 Urine glucose detection 1000 mg/dl High Normal [facility] Glucose measurementOrdered B y: Pedro Krishnan on 11-27-2024 Glucose [Mass/Vol] 373 mg/dL High 74-106 [facility] Comment on above: Glucose result great er than or equal to 200 mg/dLsuggests DIABETES MELLITUS per A.D.A. criteria. Glucose measurement 373 mg/dL High 74-106 [facility] Hematocrit Auto (Bld) [Volum e fraction]Ordered By: Pedro Krishnan on 11-27-2024 Hematocrit (Bld) [Volume fraction] 41.1 % 40-54 [facility] Automated blood hematocrit (percentage) 41.1 % 40-54 [facility] Hemoglobin measurementOrdere d By: Pedro Krishnan on 11-27-2024 Hemoglobin (Bld) [Mass/Vol] 14.2 g/dL 13.0-16.5 [facility] Hemoglobin measurement 14.2 g/dL 13.0-16.5 [facility] Immature granulocytes/100 WB C Auto (Bld)Ordered By: Pedro Krishnan on 11-27-2024 Immature granulocytes/100 WBC (Bld) 0.300 % 0.0-0.9 [facility] Comment on above: IG% - Immature Granu locytes (promyelocytes, myelocytes and metamyelocytes) > 1% indicates that a LEFT SHIFT is Present. Automated immature granulocyte percentage 0.300 % 0.0-0.9 [facility] Ketones Test strip Ql (U)Ord ered By: Pedro Krishnan on 11-27-2024 Ketones Ql (U) Negative Negative [facility] - Chemistry and C hemistry - challengeOrdered By: Pedro Krishnan on 11-27-2024 AST [Catalytic activity/Vol] 11 U/L Low 15-37 [facility] Lipaseon 11-27-2024 Lipase [Catalytic activity/Vol] 23 U/L Normal 13-75 [facility] Comment on above: Result Comment: Oleksandr lopez note: LIPASE revised reference range effective 23. New Lipase methodology. Expected to produce lower values than the previous assay method. NEW Reference Range: 13 - 75 U/L Performed By: #### L 500.2500, L501.4020, L100.0100 #### [facility] [address] [place], [address] Lipase measurementOrdered By : Pedro Krishnan on 11-27-2024 Lipase [Catalytic activity/Vol] 23 U/L 13-75 [facility] Comment on above: Please note:LIPASE r evised reference range effective 23. New Lipase methodology. Expected to produce lower values than the previous assay method. NEW Reference Range: 13 - 75 U/L Lipase measurement 23 U/L 13-75 [facility] Lymphocytes Auto (Unsp spec) [#/Vol]Ordered By: Pedro Krishnan on 11-27-2024 Absolute lymphocyte count 1.51 X10^3/uL 0.83-4.51 [facility] Lymphocytes/100 WBC Auto (Un sp spec)Ordered By: Pedro Krishnan on 11-27-2024 Automated lymphocyte count as percentage of total leukocytes 16.8 % Low 19-41 [facility] MCV (RBC) [Entitic vol]Order ed By: Pedro Krishnan on 11-27-2024 MCV (mean corpuscular volume) determination 81.7 fL 80-94 [facility] MCV (mean corpuscular volume ) determinationOrdered By: Pedro Krishnan on 11-27-2024 MCV (RBC) [Entitic vol] 81.7 fL 80-94 [facility] Mean corpuscular hemoglobin (MCH) determinationOrdered By: Pedro Krishnan on 11-27-2024 MCH (RBC) [Entitic mass] 28.2 pg 27.0-32.0 [facility] Mean corpuscular hemoglobin (MCH) determination 28.2 pg 27.0-32.0 [facility] Mean corpuscular hemoglobin concentration (MCHC) determinationOrdered By: Pedro Krishnan on 11-27-2024 MCHC (RBC) [Mass/Vol] 34.5 g/dL 32-[address] [facility] Mean corpuscular hemoglobin concentration (MCHC) determination 34.5 g/dL 32-36 [facility] Mean platelet volume determi nationOrdered By: Pedro Krishnan on 11-27-2024 Platelet mean volume (Bld) [Entitic vol] 9.3 fL 6.2-12.0 [facility] Mean platelet volume determination 9.3 fl 6.2-12.0 [facility] Microscopic analysis of urin e for red blood cells (RBC)Ordered By: Pedro Krishnan on 11-27-2024 Microscopic analysis of urine for red blood cells (RBC) 0-5 SEEN /hpf 0-5 [facility] Monocyte percentageOrdered B y: Pedro Krishnan on 11-27-2024 Monocytes/100 WBC (Bld) 5.5 % 0-10 [facility] Monocyte percentage 5.5 % 0-10 [facility] Mucus LM Ql (Urine sed)Order ed By: Pedro Krishnan on 11-27-2024 Mucus Ql (Urine sed) 0 SEEN /hpf [facility] Mucus detection in urine sediment by light microscopy 0 SEEN /hpf [facility] Neutrophil percentageOrdered By: Pedro Krishnan on 11-27-2024 Neutrophils/100 WBC (Bld) 73.9 % High 47-70 [facility] Neutrophil percentage 73.9 % High 47-[address] [facility] Nitrite Test strip Ql (U)Ord ered By: Pedro Krishnan on 11-27-2024 Nitrite Ql (U) Negative Negative [facility] No Panel InformationOrdered By: Pedro Krishnan on 11-27-2024 11 U/L Low 15-37 [facility] Nucleated red blood cell per centageOrdered By: Pedro Krishnan on 11-27-2024 Nucleated RBC/100 WBC (Bld) [Ratio] 0 % 0-5 [facility] Nucleated red blood cell percentage 0 % 0-5 [facility] Platelet countOrdered By: Bridger Krishnan on 11-27-2024 Platelets (Bld) [#/Vol] 231 10*3/uL 150-450 [facility] Platelet count 231 K/mm3 150-450 [facility] Potassium measurementOrdered By: Pedro Krishnan on 11-27-2024 Potassium [Moles/Vol] 3.8 mmol/L 3.5-5.[address] [facility] Potassium measurement 3.8 mmol/L 3.5-5.[address] [facility] Protein Test strip Ql (U)Ord ered By: Pedro Krishnan on 11-27-2024 Protein Ql (U) 30 mg/dl High Negative [facility] Urine protein assay by test strip, semi-quantitative 30 mg/dl High Negative [facility] RBC Auto (Bld) [#/Vol]Ordere d By: Pedro Krishnan on 11-27-2024 RBC (Bld) [#/Vol] 5.03 10*6/uL 4.6-6.2 [facility] Automated blood erythrocyte count 5.03 M/mm3 4.6-6.2 [facility] Serum anion gap measurementO rdered By: Pedro Krishnan on 11-27-2024 Anion gap [Moles/Vol] 10 mmol/L 5-[address] [facility] Serum anion gap measurement 10 5-15 [facility] Serum globulin measurementOr dered By: Pedro Krishnan on 11-27-2024 Globulin (S) [Mass/Vol] 3.7 g/dL 2.2-4.2 [facility] Serum globulin measurement 3.7 g/dL 2.2-4.2 [facility] Serum or plasma alanine wagoner otransferase (ALT) measurementOrdered By: Pedro Krishnan on 11-27-2024 ALT [Catalytic activity/Vol] 16 U/L 16-61 [facility] Serum or plasma albumin yayo urement (mass/volume)Ordered By: Pedro Krishnan on 11-27-2024 Albumin [Mass/Vol] 3.6 g/dL 3.2-5.0 [facility] Serum or plasma alkaline andrzej sphatase measurementOrdered By: Pedro Krishnan on 11-27-2024 ALP [Catalytic activity/Vol] 107 U/L 45-117 [facility] Serum or plasma calcium yayo urement (mass/volume)Ordered By: Pedro Krishnan on 11-27-2024 Calcium [Mass/Vol] 8.8 mg/dL 8.5-10.1 [facility] Serum or plasma creatinine m easurement (mass/volume)Ordered By: Pedro Krishnan on 11-27-2024 Creatinine [Mass/Vol] 0.94 mg/dL 0.70-1.[address] [facility] Comment on above: The validity of the calculated GFR & GFRAA in patients over 70 years has not been determined. Clinical correlation is essential. Serum or plasma urea nitroge n measurement (mass/volume)Ordered By: Pedro Krishnan on 11-27-2024 Urea nitrogen [Mass/Vol] 12 mg/dL 7-18 [facility] Sodium levelOrdered By: Vinicius Krishnan on 11-27-2024 Sodium [Moles/Vol] 133 mmol/L Low 136-145 [facility] Sodium level 133 mmol/L Low 136-145 [facility] Specific gravity (U) [Rel de nsity]Ordered By: Pedro Krishnan on 11-27-2024 Urine specific gravity measurement 1.020 1.002-1.030 [facility] Squamous epithelial cells de tection in urine sediment by light microscopyOrdered By: Pedro Krishnan on 11-27-2024 Epithelial cells.squamous LM Ql (Urine sed) 0-5 SEEN /hpf 0-5 [facility] Total proteinOrdered By: Issac Krishnan on 11-27-2024 Protein [Mass/Vol] 7.3 g/dL 6.4-8.2 [facility] Total protein 7.3 g/dL 6.4-8.2 [facility] Urea nitrogen [Mass/Vol]Orde red By: Pedro Krishnan on 11-27-2024 Serum or plasma urea nitrogen measurement (mass/volume) 12 mg/dL 7-18 [facility] Urinalysis, Completeon 11-27 BACTERIA RARE Normal None Seen [facility] Comment on above: Order Comment: CLEAN CATCH Performed By: #### L 400.0001 ####[facility] [address] [place], [place], [phone](252) EPI,SQUAMOUS 0-5 SEEN Normal 0-5 [facility] Comment on above: Order Comment: CLEAN CATCH Performed By: #### L 400.0001 ####[facility] [address] [place], [address] RBC 0-5 SEEN Normal 0-5 [facility] Comment on above: Order Comment: CLEAN CATCH Performed By: #### L 400.0001 ####[facility] [address] [place], [address] WBC 0-5 SEEN Normal 0-5 [facility] Comment on above: Order Comment: CLEAN CATCH Performed By: #### L 400.0001 ####[facility] [address] [place], [address] YEAST 1+ /hpf Normal None Seen [facility] Comment on above: Order Comment: CLEAN CATCH Performed By: #### L 400.0001 ####[facility] [address] [place], [place], [address] Mucus Ql (Urine sed) 0 SEEN Normal [facility] Comment on above: Order Comment: CLEAN CATCH Performed By: #### L 400.0001 ####[facility] [address] [place], [place], [id number] Urine blood detectionOrdered By: Pedro Krishnan on 11-27-2024 Urine blood detection 10 /ul High Negative [facility] Urine clarityOrdered By: Issac Krishnan on 11-27-2024 Clarity (U) Clear Clear [facility] Urine color determinationOrd ered By: Pedro Krishnan on 11-27-2024 Color (U) Yellow Yellow [facility] Urine glucose detectionOrder ed By: Pedro Krishnan on 11-27-2024 Glucose Ql (U) 1000 mg/dl High Normal [facility] Urine leukocyte esterase det ection by dipstickOrdered By: Pedro Krishnan on 11-27-2024 Leukocyte esterase Test strip Ql (U) Negative Negative [facility] Urine pHOrdered By: Pedro wynne on 11-27-2024 pH (U) 6.0 [pH] 5.0 - 8.0 [facility] Urine sediment bacteria coun t by microscopy (number/high power field)Ordered By: Pedro Krishnan on 11-27-2024 Bacteria LM.HPF (Urine sed) [#/Area] RARE /hpf None Seen [facility] Urine sediment yeast count b y microscopy (number/high powered field)Ordered By: Pedro Krishnan on 11-27-2024 Yeast LM.HPF (Urine sed) [#/Area] 1 /[HPF] None Seen [facility] Urine specific gravity measu rementOrdered By: Pedro Krishnan on 11-27-2024 Specific gravity (U) [Rel density] 1.020 1.002-1.030 [facility] Urine total bilirubin detect ion by test stripOrdered By: Pedro Krishnan on 11-27-2024 Urine total bilirubin detection by test strip Negative Negative [facility] Urine urobilinogen measureme ntOrdered By: Pedro Krishnan on 11-27-2024 Urobilinogen Ql (U) Normal mg/dl Normal [facility] Urobilinogen Ql (U)Ordered B y: Pedro Krishnan on 11-27-2024 Urine urobilinogen measurement Normal mg/dl Normal [facility] White blood cell (WBC) count Ordered By: Pedro Krishnan on 11-27-2024 WBC (Bld) [#/Vol] 9.0 10*3/uL 4.4-11.0 [facility] White blood cell (WBC) count 9.0 K/mm3 4.4-11.0 [facility] White blood cell countOrdere d By: Pedro Krishnan on 11-27-2024 White blood cell count 0-5 SEEN /hpf 0-5 [facility] White blood cell count 0-5 SEEN /hpf 0-5 [facility] Yeast LM.HPF (Urine sed) [#/ Area]Ordered By: Pedro Krishnan on 11-27-2024 Urine sediment yeast count by microscopy (number/high powered field) 1+ /hpf None Seen [facility] pH (U)Ordered By: Pedro perez on 11-27-2024 Urine pH 6.0 5.0 - 8.0 [facility] Absolute neutrophil countOrd ered By: Johann Lemons on 10-30-2024 Absolute neutrophil count 4.5 X10^3/uL 2.0-7.7 [facility] Basic Metabolic Profile (BMP )on 10-30-2024 BUN/CRE 21.2 RATIO High 10-20 [facility] Comment on above: Performed By: #### L 100.0100, L501.5200, L500.2500 ####[facility] [address] [place], [address] CA,Total 9.0 mg/dL Normal 8.5-10.1 [facility] Comment on above: Performed By: #### L 100.0100, L501.5200, L500.2500 ####[facility] [address] [place], [address] Chloride [Moles/Vol] 101 mmol/L Normal 98-107 [facility] Comment on above: Performed By: #### L 100.0100, L501.5200, L500.2500 ####[facility] [address] [place], [address] CO2 [Moles/Vol] 29.0 mmol/L Normal 21.0-32.0 [facility] Comment on above: Performed By: #### L 100.0100, L501.5200, L500.2500 ####[facility] [address] [place], [address] Creatinine [Mass/Vol] 0.90 mg/dL Normal 0.70-1.[address] [facility] Comment on above: Result Comment: The validity of the calculated GFR GFRAA in patients over 70 years has not been determined. Clinical correlation is essential. Performed By: #### L 100.0100, L501.5200, L500.2500 ####[facility] [address] [place], [address] EST GFR - AA 110 mL/min Normal >60 [facility] Comment on above: Result Comment: Afri can [place] GFR Calc Performed By: #### L 100.0100, L501.5200, L500.2500 ####[facility] [address] [place], [address] GAP 7 Normal 5-15 [facility] Comment on above: Performed By: #### L 100.0100, L501.5200, L500.2500 ####[facility] [address] [place], [address] GFR/1.73 sq M.predicted among non-blacks MDRD (S/P/Bld) [Vol rate/Area] 91 mL/min/{1.73_m2} Normal >60 [facility] Comment on above: Result Comment: Non- GFR Calc Performed By: #### L 100.0100, L501.5200, L500.2500 ####[facility] [address] [place], [address] Glucose [Mass/Vol] 361 mg/dL High 74-106 [facility] Comment on above: Result Comment: Gluc ose result greater than or equal to 200 mg/dL suggests DIABETES MELLITUS per A.D.A. criteria. Performed By: #### L 100.0100, L501.5200, L500.2500 ####[facility] [address] [place], [address] Potassium [Moles/Vol] 3.8 mmol/L Normal 3.5-5.[address] [facility] Comment on above: Performed By: #### L 100.0100, L501.5200, L500.2500 ####[facility] [address] [place], [address] Sodium [Moles/Vol] 136 mmol/L Normal 136-145 [facility] Comment on above: Performed By: #### L 100.0100, L501.5200, L500.2500 ####[facility] [address] [place], [address] Urea nitrogen [Mass/Vol] 19 mg/dL High 7-18 [facility] Comment on above: Performed By: #### L 100.0100, L501.5200, L500.2500 ####[facility] [address] [place], [address] Basophil percentageOrdered B y: Johann Lemons on 10-30-2024 Basophil percentage 0.4 % 0-1 [facility] Blood urea nitrogen (BUN)/cr eatinine ratioOrdered By: Johann Lemons on 10-30-2024 Blood urea nitrogen (BUN)/creatinine ratio 21.2 RATIO High 10-20 [facility] CBC W/Diff, Automatedon 12-3 Absolute Lymph 1.53 X10 3/uL Normal 0.83-4.51 [facility] Comment on above: Performed By: #### L 100.0100, L501.5200, L500.2500 ####[facility] [address] [place], [address] Absolute Neut 4.5 X10 3/uL Normal 2.0-7.7 [facility] Comment on above: Performed By: #### L 100.0100, L501.5200, L500.2500 ####[facility] [address] [place], [address] Basophils/100 WBC (Bld) 0.4 % Normal 0-1 [facility] Comment on above: Performed By: #### L 100.0100, L501.5200, L500.2500 ####[facility] [address] [place], [address] Eosinophils/100 WBC (Bld) 3.5 % Normal 0-5 [facility] Comment on above: Performed By: #### L 100.0100, L501.5200, L500.2500 ####[facility] [address] [place], [address] Erythrocyte distribution width (RBC) [Ratio] 13.2 % Normal 11.6-14.6 [facility] Comment on above: Performed By: #### L 100.0100, L501.5200, L500.2500 ####[facility] [address] [place], [address] Hematocrit (Bld) [Volume fraction] 39.5 % Low 40-54 [facility] Comment on above: Performed By: #### L 100.0100, L501.5200, L500.2500 ####[facility] [address] [place], [address] Hemoglobin (Bld) [Mass/Vol] 14.2 g/dL Normal 13.0-16.5 [facility] Comment on above: Performed By: #### L 100.0100, L501.5200, L500.2500 ####[facility] [address] [place], [address] IG% 0.600 Normal 0.0-0.9 [facility] Comment on above: Result Comment: IG% - Immature Granulocytes (promyelocytes, myelocytes and metamyelocytes) > 1% indicates that a LEFT SHIFT is Present. Performed By: #### L 100.0100, L501.5200, L500.2500 ####[facility] [address] [place], [address] Lymphocytes/100 WBC (Bld) 22.4 % Normal 19-41 [facility] Comment on above: Performed By: #### L 100.0100, L501.5200, L500.2500 ####[facility] [address] [place], [address] MCH (RBC) [Entitic mass] 29.0 pg Normal 27.0-32.0 [facility] Comment on above: Performed By: #### L 100.0100, L501.5200, L500.2500 ####[facility] [address] [place], [address] MCHC (RBC) [Mass/Vol] 35.9 g/dL Normal 32-[address] [facility] Comment on above: Performed By: #### L 100.0100, L501.5200, L500.2500 ####[facility] [address] [place], [address] MCV (RBC) [Entitic vol] 80.6 fL Normal 80-94 [facility] Comment on above: Performed By: #### L 100.0100, L501.5200, L500.2500 ####[facility] [address] [place], [address] Monocytes/100 WBC (Bld) 7.2 % Normal 0-10 [facility] Comment on above: Performed By: #### L 100.0100, L501.5200, L500.2500 ####[facility] [address] [place], [address] Neutrophils/100 WBC (Bld) 65.9 % Normal 47-70 [facility] Comment on above: Performed By: #### L 100.0100, L501.5200, L500.2500 ####[facility] [address] [place], [address] Nucleated RBC (Bld) [#/Vol] 0 10*3/uL Normal 0-5 [facility] Comment on above: Performed By: #### L 100.0100, L501.5200, L500.2500 ####[facility] [address] [place], [address] Platelet mean volume (Bld) [Entitic vol] 9.1 fL Normal 6.2-12.0 [facility] Comment on above: Performed By: #### L 100.0100, L501.5200, L500.2500 ####[facility] [address] [place], [address] Platelets (Bld) [#/Vol] 158 10*3/uL Normal 150-450 [facility] Comment on above: Performed By: #### L 100.0100, L501.5200, L500.2500 ####[facility] [address] [place], [address] RBC (Bld) [#/Vol] 4.90 10*6/uL Normal 4.6-6.2 [facility] Comment on above: Performed By: #### L 100.0100, L501.5200, L500.2500 ####[facility] [address] [place], [address] RDW SD 38.2 fl Normal 35.1-43.9 [facility] Comment on above: Performed By: #### L 100.0100, L501.5200, L500.2500 ####[facility] [address] [place], [address] WBC (Bld) [#/Vol] 6.8 10*3/uL Normal 4.4-11.0 [facility] Comment on above: Performed By: #### L 100.0100, L501.5200, L500.2500 ####[facility] [address] [facility] [place], [address] Calcium [Mass/Vol]Ordered By : Johann Lemons on 10-30-2024 Serum or plasma calcium measurement (mass/volume) 9.0 mg/dL 8.5-10.1 [facility] Carbon dioxide measurementOr dered By: Johann Lemons on 10-30-2024 Carbon dioxide measurement 29.0 mmol/L 21.0-32.0 [facility] Chloride measurementOrdered By: Johann Lemons on 10-30-2024 Chloride measurement 101 mmol/L 98-107 [facility] Clarity (U)Ordered By: Roland Lemons on 10-30-2024 Urine clarity Clear Clear [facility] Color (U)Ordered By: Johann Lemons on 10-30-2024 Urine color determination Yellow Yellow [facility] Creatinine [Mass/Vol]Ordered By: Johann Lemons on 10-30-2024 Serum or plasma creatinine measurement (mass/volume) 0.90 mg/dL 0.70-1.30 [facility] Emergency Department Summary on 10-30-2024 Emergency Department Summary [facility] Medical Records Department [address] [place] [address] Emergency Department Summary 10/30/24 MR#: [id number] Acct: [id number] Name: JERALD YODER Rep #: [id number] : 1960 64 From: Johann Lemons DO [...] called EMS was brought in for evaluation [facility] Medical History Partial traumatic amputation of [...] [place] (more content not included)... Normal [facility] Eosinophil percentageOrdered By: Johann Lemons on 10-30-2024 Eosinophil percentage 3.5 % 0-[address] [facility] Erythrocyte distribution wid th (RBC) [Ratio]Ordered By: Johann Lemons on 10-30-2024 Erythrocyte distribution width ratio 13.2 % 11.6-14.6 [facility] Erythrocyte distribution width standard deviation 38.2 fl 35.1-43.9 [facility] Estimated glomerular filtrat ion rate (GFR) AmericanOrdered By: Johann Lemons on 10-30-2024 Estimated glomerular filtration rate (GFR) 110 mL/min >60 [facility] Glomerular filtration rate ( GFR) estimationOrdered By: Johann Lemons on 10-30-2024 Glomerular filtration rate (GFR) estimation 91 mL/min >60 [facility] Glucose Ql (U)Ordered By: Julia Lemons on 10-30-2024 Urine glucose detection 1000 mg/dl High Normal [facility] Glucose measurementOrdered B y: Johann Lemons on 10-30-2024 Glucose measurement 361 mg/dL High 74-106 [facility] Hematocrit Auto (Bld) [Volum e fraction]Ordered By: Johann Lemons on 10-30-2024 Automated blood hematocrit (percentage) 39.5 % Low 40-54 [facility] Hemoglobin measurementOrdere d By: Johann Lemons on 10-30-2024 Hemoglobin measurement 14.2 g/dL 13.0-16.5 [facility] Immature granulocytes/100 WB C Auto (Bld)Ordered By: Johann Lemons on 10-30-2024 Automated immature granulocyte percentage 0.600 % 0.0-0.9 [facility] Ketones Test strip Ql (U)Ord ered By: Johann Lemons on 10-30-2024 Urine ketones detection by test strip 5 mg/dl High Negative [facility] Lymphocytes Auto (Unsp spec) [#/Vol]Ordered By: Johann Lemons on 10-30-2024 Absolute lymphocyte count 1.53 X10^3/uL 0.83-4.51 [facility] Lymphocytes/100 WBC Auto (Un sp spec)Ordered By: Johann Lemons on 10-30-2024 Automated lymphocyte count as percentage of total leukocytes 22.4 % 19-41 [facility] M100.678on 10-30-2024 M100.678 Pending SARS-CoV-2 (COVID 19) Negative INFLUENZA A Negative INFLUENZA B Negative RSV PCR Negative Normal [facility] Comment on above: Performed By: #### L 500.2500, L501.4020, L100.0100 #### [facility] [address] [place], [address] MCV (RBC) [Entitic vol]Order ed By: Johann Lemons on 10-30-2024 MCV (mean corpuscular volume) determination 80.6 fL 80-94 [facility] Magnesiumon 10-30-2024 Magnesium [Mass/Vol] 1.5 mg/dL Low 1.6-2.6 [facility] Comment on above: Performed By: #### L 100.0100, L501.5200, L500.2500 ####[facility] [address] [place], [address] Magnesium measurementOrdered By: Johann Lemons on 10-30-2024 Magnesium measurement 1.5 mg/dL Low 1.6-2.[address] [facility] Mean corpuscular hemoglobin (MCH) determinationOrdered By: Johann Lemons on 10-30-2024 Mean corpuscular hemoglobin (MCH) determination 29.0 pg 27.0-32.0 [facility] Mean corpuscular hemoglobin concentration (MCHC) determinationOrdered By: Johann Lemons on 10-30-2024 Mean corpuscular hemoglobin concentration (MCHC) determination 35.9 g/dL 32-36 [facility] Mean platelet volume determi nationOrdered By: Johann Lemons on 10-30-2024 Mean platelet volume determination 9.1 fl 6.2-12.0 [facility] Monocyte percentageOrdered B y: Johann Lemons on 10-30-2024 Monocyte percentage 7.2 % 0-10 [facility] Neutrophil percentageOrdered By: Johann Lemons on 10-30-2024 Neutrophil percentage 65.9 % 47-[address] [facility] Nucleated red blood cell per centageOrdered By: Johann Lemons on 10-30-2024 Nucleated red blood cell percentage 0 % 0-5 [facility] Platelet countOrdered By: Julia Lemons on 10-30-2024 Platelet count 158 K/mm3 150-450 [facility] Potassium measurementOrdered By: Johann Lemons on 10-30-2024 Potassium measurement 3.8 mmol/L 3.5-5.[address] [facility] Protein Test strip Ql (U)Ord ered By: Johann Leomns on 10-30-2024 Urine protein assay by test strip, semi-quantitative 15 mg/dl High Negative [facility] RBC Auto (Bld) [#/Vol]Ordere d By: Johann Lemons on 10-30-2024 Automated blood erythrocyte count 4.90 M/mm3 4.6-6.2 [facility] Serum anion gap measurementO rdered By: Johann Lemons on 10-30-2024 Serum anion gap measurement 7 5-15 [facility] Sodium levelOrdered By: Keith Lemons on 10-30-2024 Sodium level 136 mmol/L 136-145 [facility] Specific gravity (U) [Rel de nsity]Ordered By: Johann Lemons on 10-30-2024 Urine specific gravity measurement 1.015 1.002-1.030 [facility] Urea nitrogen [Mass/Vol]Orde red By: Johann Lemons on 10-30-2024 Serum or plasma urea nitrogen measurement (mass/volume) 19 mg/dL High 7-18 [facility] Urinalysis, Completeon 10-30 BACTERIA 0 SEEN Normal None Seen [facility] Comment on above: Order Comment: 'TROP ' Serial specimen #1, #2 or #3: 1 Performed By: #### L 500.2500, L501.4020, L100.0100 #### [facility] [address] [place], [address] EPI,SQUAMOUS 0 SEEN Normal 0-5 [facility] Comment on above: Order Comment: 'TROP ' Serial specimen #1, #2 or #3: 1 Performed By: #### L 500.2500, L501.4020, L100.0100 #### [facility] [address] [place], [address] Mucus Ql (Urine sed) 0 SEEN Normal [facility] Comment on above: Order Comment: 'TROP ' Serial specimen #1, #2 or #3: 1 Performed By: #### L 500.2500, L501.4020, L100.0100 #### [facility] [address] [place], [address] RBC 0 SEEN Normal 0-5 [facility] Comment on above: Order Comment: 'TROP ' Serial specimen #1, #2 or #3: 1 Performed By: #### L 500.2500, L501.4020, L100.0100 #### [facility] [address] [place], [address] WBC 0 SEEN Normal 0-5 [facility] Comment on above: Order Comment: 'TROP ' Serial specimen #1, #2 or #3: 1 Performed By: #### L 500.2500, L501.4020, L100.0100 #### [facility] [address] [place], [address] Urine total bilirubin detect ion by test stripOrdered By: Johann Lemons on 10-30-2024 Urine total bilirubin detection by test strip Negative Negative [facility] Urobilinogen Ql (U)Ordered B y: Johann Lemons on 10-30-2024 Urine urobilinogen measurement Normal mg/dl Normal [facility] White blood cell (WBC) count Ordered By: Johann Lemons on 10-30-2024 White blood cell (WBC) count 6.8 K/mm3 4.4-11.0 [facility] White blood cell countOrdere d By: Johann Lemons on 10-30-2024 White blood cell count 0 SEEN /hpf [facility] pH (U)Ordered By: Wilmer on 10-30-2024 Urine pH 6.0 5.0 - 8.0 [facility] Chest 1 View (Portable)on Chest 1 View (Portable) [facility] Imaging Services [address] [place] [address] Chest 1 View (Portable) MR#: [id number] Acct: [id number] Name: JERALD YODER Rep #: [id number] : 1960 M 64 From: Dina Christina PCP: Dr. Linden Chavez DO Status: REG ER Study: Chest 1 View (Portable) Date of Exam: 10/29/24 Exam# [id number] Ordering Dr: [place] [id number] INDICATION: weakness EXAMINATION/TECHNIQUE: X-RAY - XR Chest [...] 1:07 EST Reading Location ID and State: [facility] / [place] Tel , Service support , CC: Dr. 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 Live Ashley MD; Dr. Linden Chavez, DO Signed Normal [facility] Absolute neutrophil countOrd ered By: Live Ashley on 10-19-2024 Absolute neutrophil count 4.7 X10^3/uL 2.0-7.7 [facility] Basic Metabolic Profile (BMP )on 10-19-2024 BUN/CRE 14.7 RATIO Normal 08-19 [facility] Comment on above: Order Comment: 'TROP ' Serial specimen #1, #2 or #3: 1 Performed By: #### L 500.2500, L501.4020, L100.0100 #### [facility] [address] [place], [address] CA,Total 8.8 mg/dL Normal 8.5-10.1 [facility] Comment on above: Order Comment: 'TROP ' Serial specimen #1, #2 or #3: 1 Performed By: #### L 500.2500, L501.4020, L100.0100 #### [facility] [address] [place], [address] Chloride [Moles/Vol] 99 mmol/L Normal 98-107 [facility] Comment on above: Order Comment: 'TROP ' Serial specimen #1, #2 or #3: 1 Performed By: #### L 500.2500, L501.4020, L100.0100 #### [facility] [address] [place], [address] CO2 [Moles/Vol] 26.0 mmol/L Normal 21.0-32.0 [facility] Comment on above: Order Comment: 'TROP ' Serial specimen #1, #2 or #3: 1 Performed By: #### L 500.2500, L501.4020, L100.0100 #### [facility] [address] [place], [address] Creatinine [Mass/Vol] 1.02 mg/dL Normal 0.70-1.[address] [facility] Comment on above: Order Comment: 'TROP ' Serial specimen #1, #2 or #3: 1 Result Comment: The validity of the calculated GFR GFRAA in patients over 70 years has not been determined. Clinical correlation is essential. Performed By: #### L 500.2500, L501.4020, L100.0100 #### [facility] [address] [place], [address] ECRCL 92.21 ml/min Normal [facility] Comment on above: Order Comment: 'TROP ' Serial specimen #1, #2 or #3: 1 Performed By: #### L 500.2500, L501.4020, L100.0100 #### [facility] [address] [place], [address] EST GFR - AA 94 mL/min Normal >60 [facility] Comment on above: Order Comment: 'TROP ' Serial specimen #1, #2 or #3: 1 Result Comment: Afri can Senegalese GFR Calc Performed By: #### L 500.2500, L501.4020, L100.0100 #### [facility] [address] [place], [address] GAP 5 Normal 5-15 [facility] Comment on above: Order Comment: 'TROP ' Serial specimen #1, #2 or #3: 1 Performed By: #### L 500.2500, L501.4020, L100.0100 #### [facility] [address] [place], [address] GFR/1.73 sq M.predicted among non-blacks MDRD (S/P/Bld) [Vol rate/Area] 78 mL/min/{1.73_m2} Normal >60 [facility] Comment on above: Order Comment: 'TROP ' Serial specimen #1, #2 or #3: 1 Result Comment: Non- GFR Calc Performed By: #### L 500.2500, L501.4020, L100.0100 #### [facility] [address] [place], [address] Glucose [Mass/Vol] 494 mg/dL Invalid Interpretation Code 74-106 [facility] Comment on above: Order Comment: 'TROP ' Serial specimen #1, #2 or #3: 1 Result Comment: Crit ical Result(s) Called at: 04:42:01 10/19/2024 by: Carla Montgomery LSparr. Results read back by same. Glucose result greater than or equal to 200 mg/dL suggests DIABETES MELLITUS per A.D.A. criteria. Performed By: #### L 500.2500, L501.4020, L100.0100 #### [facility] [address] [place], [address] Potassium [Moles/Vol] 3.7 mmol/L Normal 3.5-5.[address] [facility] Comment on above: Order Comment: 'TROP ' Serial specimen #1, #2 or #3: 1 Performed By: #### L 500.2500, L501.4020, L100.0100 #### [facility] [address] [place], [address] Sodium [Moles/Vol] 130 mmol/L Low 136-145 [facility] Comment on above: Order Comment: 'TROP ' Serial specimen #1, #2 or #3: 1 Performed By: #### L 500.2500, L501.4020, L100.0100 #### [facility] [address] [place], [address] Urea nitrogen [Mass/Vol] 15 mg/dL Normal 7-18 [facility] Comment on above: Order Comment: 'TROP ' Serial specimen #1, #2 or #3: 1 Performed By: #### L 500.2500, L501.4020, L100.0100 #### [facility] [address] [place], [address] Basophil percentageOrdered B y: Live Ashley on 10-19-2024 Basophil percentage 1.0 % 0-1 [facility] Bedside Glucoseon 10-19-2024 FINGERSTICK GLU 263 mg/dL High [address] [place] [address] Comment on above: Result Comment: TAYLOR GEMENT OF PATIENT CARE PER NURSING PROTOCOL Performed By: #### L 501.080 #### [facility] [address] [place], [address] FINGERSTICK GLU 353 mg/dL High [address] [place] [address] Comment on above: Result Comment: TAYLOR GEMENT OF PATIENT CARE PER NURSING PROTOCOL Performed By: #### L 500.2500, L501.4020, L100.0100 #### [facility] [address] [place], [address] FINGERSTICK GLU > 500 Invalid Interpretation Code [address] [place] [address] Comment on above: Result Comment: TAYLOR GEMENT OF PATIENT CARE PER NURSING PROTOCOL Performed By: #### L 501.080 ####[facility] [address] [place], [address] Blood urea nitrogen (BUN)/cr eatinine ratioOrdered By: Live Ashley on 10-19-2024 Blood urea nitrogen (BUN)/creatinine ratio 14.7 RATIO 08-19 [facility] CBC W/Diff, Automatedon - PLT EST ADEQUATE Normal ADEQ [facility] Comment on above: Performed By: #### L 500.2500, L501.4020, L100.0100 #### [facility] [address] [place], [address] RED CELL MORPH NORM C+C Normal NORM C C [facility] Comment on above: Performed By: #### L 500.2500, L501.4020, L100.0100 #### [facility] [address] [place], [address] SMEAR COMMENT SCANNED Normal [facility] Comment on above: Performed By: #### L 500.2500, L501.4020, L100.0100 #### [facility] [address] [place], [address] Calcium [Mass/Vol]Ordered By : Live Ashley on 10-19-2024 Serum or plasma calcium measurement (mass/volume) 8.8 mg/dL 8.5-10.1 [facility] Carbon dioxide measurementOr dered By: Live Ashley on 10-19-2024 Carbon dioxide measurement 26.0 mmol/L 21.0-32.0 [facility] Chest PA and Lateralon 10-19 Chest PA and Lateral [facility] Imaging Services [address] [place] [address] Chest PA and Lateral MR#: [id number] Acct: [id number] Name: JERALD YODER Rep #: [id number] : 1960 M 64 From: Johann Aldrich MD PCP: Dr. Linden Chavez, DO Status: REG ER Study: Chest PA and Lateral Date of Exam: 10/19/24 Exam# [id number] Ordering Dr: [place] [id number] EXAM: XR CHEST, 2 VIEWS CLINICAL INDICATION: [...] Live Ashley MD; Dr. 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 [facility] Chloride measurementOrdered By: Live Ashley on 10-19-2024 Chloride measurement 99 mmol/L 98-107 [facility] Clarity (U)Ordered By: Melissa Ashley on 10-19-2024 Urine clarity Clear Clear [facility] Color (U)Ordered By: Live Ashley on 10-19-2024 Urine color determination Yellow Yellow [facility] Creatinine [Mass/Vol]Ordered By: Live Ashley on 10-19-2024 Serum or plasma creatinine measurement (mass/volume) 1.02 mg/dL 0.70-1.30 [facility] Emergency Department Summary on 10-19-2024 Emergency Department Summary [facility] Medical Records Department [address] [place] [address] Emergency Department Summary 10/19/24 MR#: [id number] Acct: [id number] Name: JERALD YODER Rep #: [id number] : 1960 64 From: Live Ashley MD [...] lasted, he states about an hour. PFSH PFSH Medical History Partial traumatic amputation [...] 104 P (more content not included)... Normal [facility] Eosinophil percentageOrdered By: Live Ashley on 10-19-2024 Eosinophil percentage 3.0 % 0-[address] [facility] Epithelial cells.squamous LM Ql (Urine sed)Ordered By: Live Ashley on 10-19-2024 Squamous epithelial cells detection in urine sediment by light microscopy 0-5 SEEN /hpf 0-5 [facility] Erythrocyte distribution wid th (RBC) [Ratio]Ordered By: Live Ashley on 10-19-2024 Erythrocyte distribution width ratio 13.2 % 11.6-14.6 [facility] Erythrocyte distribution width standard deviation 38.4 fl 35.1-43.9 [facility] Estimated glomerular filtrat ion rate (GFR) AmericanOrdered By: Live Ashley on 10-19-2024 Estimated glomerular filtration rate (GFR) 94 mL/min >60 [facility] Estimation of creatinine edinson aranceOrdered By: Live Ashley on 10-19-2024 Estimation of creatinine clearance 92.21 ml/min [facility] Glomerular filtration rate ( GFR) estimationOrdered By: Live Ashley on 10-19-2024 Glomerular filtration rate (GFR) estimation 78 mL/min >60 [facility] Glucose Ql (U)Ordered By: Dipak Ashley on 10-19-2024 Urine glucose detection 1000 mg/dl High Normal [facility] Glucose measurementOrdered B y: Live Ashley on 10-19-2024 Glucose measurement 494 mg/dL High 74-106 [facility] Glucose measurement at bedsi deOrdered By: Live Ashley on 10-19-2024 Glucose measurement at bedside 263 mg/dL High 74-106 [facility] Hematocrit Auto (Bld) [Volum e fraction]Ordered By: Live Ashley on 10-19-2024 Automated blood hematocrit (percentage) 43.9 % 40-54 [facility] Hemoglobin measurementOrdere d By: Live Ashley on 10-19-2024 Hemoglobin measurement 15.6 g/dL 13.0-16.5 [facility] Immature granulocytes/100 WB C Auto (Bld)Ordered By: Live Ashley on 10-19-2024 Automated immature granulocyte percentage 0.300 % 0.0-0.9 [facility] L501.4020on 10-19-2024 TROPONIN-I HS < 3 Low 3.0-78.0 [facility] Comment on above: Order Comment: 'TROP ' Serial specimen #1, #2 or #3: 1 Result Comment: Oleksandr lopez Note: New Test Units and Gender Specific Reference Ranges. For more information see Policy Stat Procedure Sprakers High Sensitivity Troponin (TNIH) and attachments. Performed By: #### L 500.2500, L501.4020, L100.0100 #### [facility] [address] [place], [address] Lymphocytes Auto (Unsp spec) [#/Vol]Ordered By: Live Ashley on 10-19-2024 Absolute lymphocyte count 2.40 X10^3/uL 0.83-4.51 [facility] Lymphocytes/100 WBC Auto (Un sp spec)Ordered By: Live Ashley on 10-19-2024 Automated lymphocyte count as percentage of total leukocytes 30.0 % 19-41 [facility] MCV (RBC) [Entitic vol]Order ed By: Live Ashley on 10-19-2024 MCV (mean corpuscular volume) determination 80.0 fL 80-94 [facility] Manual differential comment Robert (Bld) [Interp]Ordered By: Live Ashley on 10-19-2024 Blood manual differential comment interpretation (narrative result) SCANNED [facility] Mean corpuscular hemoglobin (MCH) determinationOrdered By: Live Ashley on 10-19-2024 Mean corpuscular hemoglobin (MCH) determination 28.4 pg 27.0-32.0 [facility] Mean corpuscular hemoglobin concentration (MCHC) determinationOrdered By: Live Ashley on 10-19-2024 Mean corpuscular hemoglobin concentration (MCHC) determination 35.5 g/dL 32-36 [facility] Mean platelet volume determi nationOrdered By: Live Ashley on 10-19-2024 Mean platelet volume determination 10.0 fl 6.2-12.0 [facility] Monocyte percentageOrdered B y: Live Ashley on 10-19-2024 Monocyte percentage 6.6 % 0-10 [facility] Neutrophil percentageOrdered By: Live Ashley on 10-19-2024 Neutrophil percentage 59.1 % 47-[address] [facility] Nucleated red blood cell per centageOrdered By: Live Ashley on 10-19-2024 Nucleated red blood cell percentage 0 % 0-5 [facility] Platelet countOrdered By: Dipak Ashley on 10-19-2024 Platelet count 150 K/mm3 150-450 [facility] Platelets LM Ql (Bld)Ordered By: Live Ashley on 10-19-2024 Platelet estimate ADEQUATE ADEQ [facility] Potassium measurementOrdered By: Live Ashley on 10-19-2024 Potassium measurement 3.7 mmol/L 3.5-5.[address] [facility] RBC Auto (Bld) [#/Vol]Ordere d By: Live Ashley on 10-19-2024 Automated blood erythrocyte count 5.49 M/mm3 4.6-6.2 [facility] RBC morphology finding Nom ( Bld)Ordered By: Live Ashley on 10-19-2024 Erythrocyte morphology assessment NORM C+C NORMAL NORM C&C [facility] Serum anion gap measurementO rdered By: Live Ashley on 10-19-2024 Serum anion gap measurement 5 5-15 [facility] Sodium levelOrdered By: Stevan Ashley on 10-19-2024 Sodium level 130 mmol/L Low 136-145 [facility] Specific gravity (U) [Rel de nsity]Ordered By: Live Ashley on 10-19-2024 Urine specific gravity measurement 1.010 1.002-1.030 [facility] Troponin IOrdered By: Srinivasa Ashley on 10-19-2024 Troponin I < 3 pg/mL Low 3.0-78.0 [facility] Urea nitrogen [Mass/Vol]Orde red By: Live Ashley on 10-19-2024 Serum or plasma urea nitrogen measurement (mass/volume) 15 mg/dL 7-18 [facility] Urinalysis, Completeon 10-19 EPI,SQUAMOUS 0-5 SEEN Normal 0-5 [facility] Comment on above: Order Comment: CLEAN CATCH Performed By: #### L 400.0001 ####[facility] [address] [place], [address] BACTERIA 0 SEEN Normal None Seen [facility] Comment on above: Order Comment: CLEAN CATCH Performed By: #### L 400.0001 ####[facility] [address] [place], [address] Mucus Ql (Urine sed) 0 SEEN Normal [facility] Comment on above: Order Comment: CLEAN CATCH Performed By: #### L 400.0001 ####[facility] [address] [place], [address] RBC 0 SEEN Normal 0-5 [facility] Comment on above: Order Comment: CLEAN CATCH Performed By: #### L 400.0001 ####[facility] [address] [place], [address] WBC 0 SEEN Normal 0-5 [facility] Comment on above: Order Comment: CLEAN CATCH Performed By: #### L 400.0001 ####[facility] [address] [place], [address] Urine total bilirubin detect ion by test stripOrdered By: Live Ashley on 10-19-2024 Urine total bilirubin detection by test strip Negative Negative [facility] Urobilinogen Ql (U)Ordered B y: Live Ashley on 10-19-2024 Urine urobilinogen measurement Normal mg/dl Normal [facility] White blood cell (WBC) count Ordered By: Live Ashley on 10-19-2024 White blood cell (WBC) count 8.0 K/mm3 4.4-11.0 [facility] White blood cell countOrdere d By: Live Ashley on 10-19-2024 White blood cell count 0 SEEN /hpf [facility] pH (U)Ordered By: Live can on 10-19-2024 Urine pH 6.5 5.0 - 8.0 [facility] Emergency Department Summary on 08-10-2024 Emergency Department Summary [facility] Medical Records Department [address] [place] [address] Emergency Department Summary 08/10/24 MR#: [id number] Acct: [id number] Name: BENITOJERALDMANASA BYNUM Rep #: [id number] : 1960 64 From: Adam Allen DO [...] mosquito bites. He denies any recent trauma. [facility] Medical History Partial traumatic amputation of [...] pain, diarrh (more content not included)... Normal [facility] Bedside Glucoseon 05-28-2024 FINGERSTICK GLU 402 mg/dL High 74-106 [facility] Comment on above: Result Comment: TAYLOR SEALS OF PATIENT CARE PER NURSING PROTOCOL Performed By: #### L 501.080 #### [facility] [address] [place], [address] Acetone Serumon 05-27-2024 ACETONE SERUM Negative Normal NEG [facility] Comment on above: Performed By: #### L 500.2500, L501.4020, L100.0100 #### [facility] [address] [place], [address] Basic Metabolic Profile (BMP )on 05-27-2024 BUN/CRE 15.5 RATIO Normal 10-20 [facility] Comment on above: Performed By: #### L 500.2500, L501.4020, L100.0100 #### [facility] [address] [place], [address] CA,Total 9.1 mg/dL Normal 8.5-10.1 [facility] Comment on above: Performed By: #### L 500.2500, L501.4020, L100.0100 #### [facility] [address] [place], [address] Chloride [Moles/Vol] 98 mmol/L Normal 98-107 [facility] Comment on above: Performed By: #### L 500.2500, L501.4020, L100.0100 #### [facility] [address] [place], [address] CO2 [Moles/Vol] 30.0 mmol/L Normal 21.0-32.0 [facility] Comment on above: Performed By: #### L 500.2500, L501.4020, L100.0100 #### [facility] [address] [place], [address] Creatinine [Mass/Vol] 1.03 mg/dL Normal 0.70-1.[address] [facility] Comment on above: Result Comment: The validity of the calculated GFR GFRAA in patients over 70 years has not been determined. Clinical correlation is essential. Performed By: #### L 500.2500, L501.4020, L100.0100 #### [facility] [address] [place], [address] ECRCL 91.31 ml/min Normal [facility] Comment on above: Performed By: #### L 500.2500, L501.4020, L100.0100 #### [facility] [address] [place], [address] EST GFR - AA 94 mL/min Normal >60 [facility] Comment on above: Result Comment: Afri can Senegalese GFR Calc Performed By: #### L 500.2500, L501.4020, L100.0100 #### [facility] [address] [place], [address] GAP 7 Normal 5-15 [facility] Comment on above: Performed By: #### L 500.2500, L501.4020, L100.0100 #### [facility] [address] [place], [address] GFR/1.73 sq M.predicted among non-blacks MDRD (S/P/Bld) [Vol rate/Area] 77 mL/min/{1.73_m2} Normal >60 [facility] Comment on above: Result Comment: Non- GFR Calc Performed By: #### L 500.2500, L501.4020, L100.0100 #### [facility] [address] [place], [address] Glucose [Mass/Vol] 534 mg/dL Invalid Interpretation Code 72-841 [facility] Comment on above: Result Comment: Crit ical Result(s) Called at: 23:11:42 05/27/2024 by: Carla Townsend. Results read back by same. Glucose result greater than or equal to 200 mg/dL suggests DIABETES MELLITUS per A.D.A. criteria. Performed By: #### L 500.2500, L501.4020, L100.0100 #### [facility] [address] [place], [address] Potassium [Moles/Vol] 4.1 mmol/L Normal 3.5-5.[address] [facility] Comment on above: Result Comment: Mode rate Hemolysis, Result may be falsely increased. Performed By: #### L 500.2500, L501.4020, L100.0100 #### [facility] [address] [place], [address] Sodium [Moles/Vol] 135 mmol/L Low 136-145 [facility] Comment on above: Performed By: #### L 500.2500, L501.4020, L100.0100 #### [facility] [address] [place], [address] Urea nitrogen [Mass/Vol] 16 mg/dL Normal 7-18 [facility] Comment on above: Performed By: #### L 500.2500, L501.4020, L100.0100 #### [facility] [address] [place], [address] Bedside Glucoseon 05-27-2024 FINGERSTICK GLU > 500 Invalid Interpretation Code 83-106 [facility] Comment on above: Result Comment: TAYLOR BOZENA OF PATIENT CARE PER NURSING PROTOCOL Performed By: #### L 501.080 #### [facility] [address] [place], [address] FINGERSTICK GLU 478 mg/dL Invalid Interpretation Code 74-106 [facility] Comment on above: Result Comment: Dr Susan marie Followed MANAGEMENT OF PATIENT CARE PER NURSING PROTOCOL Performed By: #### L 501.080 #### [facility] [address] [place], [address] CBC W/Diff, Automatedon 07-2 Absolute Lymph 1.51 X10 3/uL Normal 0.83-4.51 [facility] Comment on above: Performed By: #### L 500.2500, L501.4020, L100.0100 #### [facility] [address] [place], [address] Absolute Neut 3.8 X10 3/uL Normal 2.0-7.7 [facility] Comment on above: Performed By: #### L 500.2500, L501.4020, L100.0100 #### [facility] [address] [place], [address] Basophils/100 WBC (Bld) 0.7 % Normal 0-1 [facility] Comment on above: Performed By: #### L 500.2500, L501.4020, L100.0100 #### [facility] [address] [place], [address] Eosinophils/100 WBC (Bld) 2.4 % Normal 0-5 [facility] Comment on above: Performed By: #### L 500.2500, L501.4020, L100.0100 #### [facility] [address] [place], [address] Erythrocyte distribution width (RBC) [Ratio] 13.4 % Normal 11.6-14.6 [facility] Comment on above: Performed By: #### L 500.2500, L501.4020, L100.0100 #### [facility] [address] [place], [address] Hematocrit (Bld) [Volume fraction] 40.4 % Normal 40-54 [facility] Comment on above: Performed By: #### L 500.2500, L501.4020, L100.0100 #### [facility] [address] [place], [address] Hemoglobin (Bld) [Mass/Vol] 14.3 g/dL Normal 13.0-16.5 [facility] Comment on above: Performed By: #### L 500.2500, L501.4020, L100.0100 #### [facility] [address] [place], [address] IG% 0.200 Normal 0.0-0.9 [facility] Comment on above: Result Comment: IG% - Immature Granulocytes (promyelocytes, myelocytes and metamyelocytes) > 1% indicates that a LEFT SHIFT is Present. Performed By: #### L 500.2500, L501.4020, L100.0100 #### [facility] [address] [place], [address] Lymphocytes/100 WBC (Bld) 25.9 % Normal 19-41 [facility] Comment on above: Performed By: #### L 500.2500, L501.4020, L100.0100 #### [facility] [address] [place], [address] MCH (RBC) [Entitic mass] 29.1 pg Normal 27.0-32.0 [facility] Comment on above: Performed By: #### L 500.2500, L501.4020, L100.0100 #### [facility] [address] [place], [address] MCHC (RBC) [Mass/Vol] 35.4 g/dL Normal 32-[address] [facility] Comment on above: Performed By: #### L 500.2500, L501.4020, L100.0100 #### [facility] [address] [place], [address] MCV (RBC) [Entitic vol] 82.3 fL Normal 80-94 [facility] Comment on above: Performed By: #### L 500.2500, L501.4020, L100.0100 #### [facility] [address] [place], [address] Monocytes/100 WBC (Bld) 6.3 % Normal 0-10 [facility] Comment on above: Performed By: #### L 500.2500, L501.4020, L100.0100 #### [facility] [address] [place], [address] Neutrophils/100 WBC (Bld) 64.5 % Normal 47-70 [facility] Comment on above: Performed By: #### L 500.2500, L501.4020, L100.0100 #### [facility] [address] [place], [address] Nucleated RBC (Bld) [#/Vol] 0 10*3/uL Normal 0-5 [facility] Comment on above: Performed By: #### L 500.2500, L501.4020, L100.0100 #### [facility] [address] [place], [address] Platelet mean volume (Bld) [Entitic vol] 9.5 fL Normal 6.2-12.0 [facility] Comment on above: Performed By: #### L 500.2500, L501.4020, L100.0100 #### [facility] [address] [place], [address] Platelets (Bld) [#/Vol] 204 10*3/uL Normal 150-450 [facility] Comment on above: Performed By: #### L 500.2500, L501.4020, L100.0100 #### [facility] [address] [place], [address] RBC (Bld) [#/Vol] 4.91 10*6/uL Normal 4.6-6.2 [facility] Comment on above: Performed By: #### L 500.2500, L501.4020, L100.0100 #### [facility] [address] [place], [address] RDW SD 39.8 fl Normal 35.1-43.9 [facility] Comment on above: Performed By: #### L 500.2500, L501.4020, L100.0100 #### [facility] [address] [place], [address] WBC (Bld) [#/Vol] 5.8 10*3/uL Normal 4.4-11.0 [facility] Comment on above: Performed By: #### L 500.2500, L501.4020, L100.0100 #### [facility] [address] [place], [address] Emergency Department Summary on 05-27-2024 Emergency Department Summary [facility] Medical Records Department [address] [place] [address] Emergency Department Summary 05/27/24 MR#: [id number] Acct: [id number] Name: JERALD YODER Rep #: [id number] : 1960 64 From: Johann Lemons DO [...] he presents to the hospital for evaluation [facility] Medical History Partial traumatic amputation of [...] Respiratory Pat (more content not included)... Normal [facility] Lipaseon 05-27-2024 Lipase [Catalytic activity/Vol] 15 U/L Normal 13-75 [facility] Comment on above: Result Comment: Oleksandr lopez note: LIPASE revised reference range effective 23. New Lipase methodology. Expected to produce lower values than the previous assay method. NEW Reference Range: 13 - 75 U/L Performed By: #### L 500.2500, L501.4020, L100.0100 #### [facility] [address] [place], [address] Liver Profileon 05-27-2024 Albumin [Mass/Vol] 3.3 g/dL Normal 3.2-5.0 [facility] Comment on above: Performed By: #### L 500.2500, L501.4020, L100.0100 #### [facility] [address] [place], [address] ALK P 77 U/L Normal 45-117 [facility] Comment on above: Performed By: #### L 500.2500, L501.4020, L100.0100 #### [facility] [address] [place], [address] ALT [Catalytic activity/Vol] 23 U/L Normal 16-61 [facility] Comment on above: Performed By: #### L 500.2500, L501.4020, L100.0100 #### [facility] [address] [place], [address] AST [Catalytic activity/Vol] 27 U/L Normal 15-37 [facility] Comment on above: Result Comment: Mode rate Hemolysis, Result may be falsely increased. Performed By: #### L 500.2500, L501.4020, L100.0100 #### [facility] [address] [place], [address] Bilirubin [Mass/Vol] 0.50 mg/dL Normal 0.20-1.00 [facility] Comment on above: Result Comment: For patients on eltrombopag therapy, use of Dimension Sprakers TBIL is not recommended. Performed By: #### L 500.2500, L501.4020, L100.0100 #### [facility] [address] [place], [address] Bilirubin.direct [Mass/Vol] 0.07 mg/dL Normal 0.00-0.30 [facility] Comment on above: Performed By: #### L 500.2500, L501.4020, L100.0100 #### [facility] [address] [place], [address] Globulin (S) [Mass/Vol] 3.5 g/dL Normal 2.2-4.2 [facility] Comment on above: Performed By: #### L 500.2500, L501.4020, L100.0100 #### [facility] [address] [place], [address] T PROT 6.8 g/dL Normal 6.4-8.2 [facility] Comment on above: Performed By: #### L 500.2500, L501.4020, L100.0100 #### [facility] [address] [place], [address] Urinalysis, Completeon 05-27 EPI,SQUAMOUS 0-5 SEEN Normal 0-5 [facility] Comment on above: Order Comment: COLLE CTOR TO SPECIFY Performed By: #### L 500.2500, L501.4020, L100.0100 #### [facility] [address] [place], [address] BACTERIA 0 SEEN Normal None Seen [facility] Comment on above: Order Comment: COLLE CTOR TO SPECIFY Performed By: #### L 500.2500, L501.4020, L100.0100 #### [facility] [address] [place], [address] Mucus Ql (Urine sed) 0 SEEN Normal [facility] Comment on above: Order Comment: COLLE CTOR TO SPECIFY Performed By: #### L 500.2500, L501.4020, L100.0100 #### [facility] [address] [place], [address] RBC 0 SEEN Normal 0-5 [facility] Comment on above: Order Comment: NO CTOR TO SPECIFY Performed By: #### L 500.2500, L501.4020, L100.0100 #### [facility] [address] [place], [address] WBC 0 SEEN Normal 0-5 [facility] Comment on above: Order Comment: NO CTOR TO SPECIFY Performed By: #### L 500.2500, L501.4020, L100.0100 #### [facility] [address] [place], [address] CBC W/Diff, Automatedon 07- Absolute Lymph 1.34 X10 3/uL Normal 0.83-4.51 [facility] Comment on above: Performed By: #### L 100.0100, L500.4050 #### [facility] [address] [place], [address] Absolute Neut 4.7 X10 3/uL Normal 2.0-7.7 [facility] Comment on above: Performed By: #### L 100.0100, L500.4050 #### [facility] [address] [place], [address] Basophils/100 WBC (Bld) 0.6 % Normal 0-1 [facility] Comment on above: Performed By: #### L 100.0100, L500.4050 #### [facility] [address] [place], [address] Eosinophils/100 WBC (Bld) 2.4 % Normal 0-5 [facility] Comment on above: Performed By: #### L 100.0100, L500.4050 #### [facility] [address] [place], [address] Erythrocyte distribution width (RBC) [Ratio] 13.2 % Normal 11.6-14.6 [facility] Comment on above: Performed By: #### L 100.0100, L500.4050 #### [facility] [address] [place], [address] Hematocrit (Bld) [Volume fraction] 40.4 % Normal 40-54 [facility] Comment on above: Performed By: #### L 100.0100, L500.4050 #### [facility] [address] [place], [address] Hemoglobin (Bld) [Mass/Vol] 14.1 g/dL Normal 13.0-16.5 [facility] Comment on above: Performed By: #### L 100.0100, L500.4050 #### [facility] [address] [place], [address] IG% 0.300 Normal 0.0-0.9 [facility] Comment on above: Result Comment: IG% - Immature Granulocytes (promyelocytes, myelocytes and metamyelocytes) > 1% indicates that a LEFT SHIFT is Present. Performed By: #### L 100.0100, L500.4050 #### [facility] [address] [place], [address] Lymphocytes/100 WBC (Bld) 19.7 % Normal 19-41 [facility] Comment on above: Performed By: #### L 100.0100, L500.4050 #### [facility] [address] [place], [address] MCH (RBC) [Entitic mass] 28.5 pg Normal 27.0-32.0 [facility] Comment on above: Performed By: #### L 100.0100, L500.4050 #### [facility] [address] [place], [address] MCHC (RBC) [Mass/Vol] 34.9 g/dL Normal 32-[address] [facility] Comment on above: Performed By: #### L 100.0100, L500.4050 #### [facility] [address] [place], [address] MCV (RBC) [Entitic vol] 81.6 fL Normal 80-94 [facility] Comment on above: Performed By: #### L 100.0100, L500.4050 #### [facility] [address] [place], [address] Monocytes/100 WBC (Bld) 7.2 % Normal 0-10 [facility] Comment on above: Performed By: #### L 100.0100, L500.4050 #### [facility] [address] [place], [address] Neutrophils/100 WBC (Bld) 69.8 % Normal 47-70 [facility] Comment on above: Performed By: #### L 100.0100, L500.4050 #### [facility] [address] [place], [address] Nucleated RBC (Bld) [#/Vol] 0 10*3/uL Normal 0-5 [facility] Comment on above: Performed By: #### L 100.0100, L500.4050 #### [facility] [address] [place], [address] Platelet mean volume (Bld) [Entitic vol] 9.6 fL Normal 6.2-12.0 [facility] Comment on above: Performed By: #### L 100.0100, L500.4050 #### [facility] [address] [place], [address] Platelets (Bld) [#/Vol] 186 10*3/uL Normal 150-450 [facility] Comment on above: Performed By: #### L 100.0100, L500.4050 #### [facility] [address] [place], [address] RBC (Bld) [#/Vol] 4.95 10*6/uL Normal 4.6-6.2 [facility] Comment on above: Performed By: #### L 100.0100, L500.4050 #### [facility] [address] [place], [address] RDW SD 38.5 fl Normal 35.1-43.9 [facility] Comment on above: Performed By: #### L 100.0100, L500.4050 #### [facility] [address] [place], [address] WBC (Bld) [#/Vol] 6.8 10*3/uL Normal 4.4-11.0 [facility] Comment on above: Performed By: #### L 100.0100, L500.4050 #### [facility] [address] [place], [address] Comprehensive Metabolic Prof [facility] 05-18-2024 Albumin [Mass/Vol] 3.5 g/dL Normal 3.2-5.0 [facility] Comment on above: Performed By: #### L 100.0100, L500.4050 #### [facility] [address] [place], [address] Albumin/Globulin [Mass ratio] 1.0 {ratio} Normal 0.9-2.4 [facility] Comment on above: Performed By: #### L 100.0100, L500.4050 #### [facility] [address] [place], [address] ALK P 81 U/L Normal 45-117 [facility] Comment on above: Performed By: #### L 100.0100, L500.4050 #### [facility] [address] [place], [address] ALT [Catalytic activity/Vol] 18 U/L Normal 16-61 [facility] Comment on above: Performed By: #### L 100.0100, L500.4050 #### [facility] [address] [place], [address] AST [Catalytic activity/Vol] 11 U/L Low 15-37 [facility] Comment on above: Performed By: #### L 100.0100, L500.4050 #### [facility] [address] [place], [address] Bilirubin [Mass/Vol] 0.60 mg/dL Normal 0.20-1.00 [facility] Comment on above: Result Comment: For patients on eltrombopag therapy, use of Dimension Sprakers TBIL is not recommended. Performed By: #### L 100.0100, L500.4050 #### [facility] [address] [place], [address] BUN/CRE 19.6 RATIO Normal 10-20 [facility] Comment on above: Performed By: #### L 100.0100, L500.4050 #### [facility] [address] [place], [address] CA,Total 9.0 mg/dL Normal 8.5-10.1 [facility] Comment on above: Performed By: #### L 100.0100, L500.4050 #### [facility] [address] [place], [address] Chloride [Moles/Vol] 98 mmol/L Normal 98-107 [facility] Comment on above: Performed By: #### L 100.0100, L500.4050 #### [facility] [address] [place], [address] CO2 [Moles/Vol] 28.0 mmol/L Normal 21.0-32.0 [facility] Comment on above: Performed By: #### L 100.0100, L500.4050 #### [facility] [address] [place], [address] Creatinine [Mass/Vol] 1.07 mg/dL Normal 0.70-1.[address] [facility] Comment on above: Result Comment: The validity of the calculated GFR GFRAA in patients over 70 years has not been determined. Clinical correlation is essential. Performed By: #### L 100.0100, L500.4050 #### [facility] [address] [place], [address] ECRCL 87.90 ml/min Normal [facility] Comment on above: Performed By: #### L 100.0100, L500.4050 #### [facility] [address] [place], [address] EST GFR - AA 89 mL/min Normal >60 [facility] Comment on above: Result Comment: Afri can [place]ales[place] GFR Calc Performed By: #### L 100.0100, L500.4050 #### [facility] [address] [place], [address] GAP 8 Normal 5-15 [facility] Comment on above: Performed By: #### L 100.0100, L500.4050 #### [facility] [address] [place], [address] GFR/1.73 sq M.predicted among non-blacks MDRD (S/P/Bld) [Vol rate/Area] 74 mL/min/{1.73_m2} Normal >60 [facility] Comment on above: Result Comment: Non- GFR Calc Performed By: #### L 100.0100, L500.4050 #### [facility] [address] [place], [address] Globulin (S) [Mass/Vol] 3.4 g/dL Normal 2.2-4.2 [facility] Comment on above: Performed By: #### L 100.0100, L500.4050 #### [facility] [address] [place], [address] Glucose [Mass/Vol] 448 mg/dL High 74-106 [facility] Comment on above: Result Comment: Gluc ose result greater than or equal to 200 mg/dL suggests DIABETES MELLITUS per A.D.A. criteria. Performed By: #### L 100.0100, L500.4050 #### [facility] [address] [place], [address] Potassium [Moles/Vol] 4.1 mmol/L Normal 3.5-5.[address] [facility] Comment on above: Performed By: #### L 100.0100, L500.4050 #### [facility] [address] [place], [address] Sodium [Moles/Vol] 134 mmol/L Low 136-145 [facility] Comment on above: Performed By: #### L 100.0100, L500.4050 #### [facility] [address] [place], [address] T PROT 6.9 g/dL Normal 6.4-8.2 [facility] Comment on above: Performed By: #### L 100.0100, L500.4050 #### [facility] [address] [place], [address] Urea nitrogen [Mass/Vol] 21 mg/dL High 7-18 [facility] Comment on above: Performed By: #### L 100.0100, L500.4050 #### [facility] [address] [place], [address] Emergency Department Summary on 05-18-2024 Emergency Department Summary [facility] Medical Records Department [address] [id number] Emergency Department Summary 05/18/24 MR#: [id number] Acct: [id number] Name: BENITOJERALD FLETCHER Rep #: [id number] : 1960 64 From: Shania Disla MD [...] using Pepto-Bismol as well as Imodium intermittently. [facility] Medical History Partial traumatic amputation of [...] Rate 16 (more content not included)... Normal [facility] CNOVon 05-10-2024 CNOV Office Visit (UCWSTR ) JERALD YODER ([id number]) 1960 M Date Time Provider Department 05/10/24 7:30 PM [facility] During your visit today, we recorded the following information about you: Temperature Pulse Respiration Blood pressure 97.5 degrees 72/minute 20/minute 135/81 Weight 101 kg Rosa Quinones APRN.CNP 05/11/2024 8:47 AM Signed This note was [...] or chills Denies using homeopathic or OTC OPTICAL MECHANIC. Requesting ear irrigation. The history is provided by the patient. No purchasing assistant was used. Ear Problem There is pain [...] Vaping Use (more content not included)... Normal [facility] Absolute lymphocyte countOrd ered By: Johann Lemons on 03-08-2024 Lymphocytes Auto (Unsp spec) [#/Vol] 1.65 10*3/uL 0.83-4.51 [facility] Automated lymphocyte count a s percentage of total leukocytesOrdered By: Johann Lemons on 03-08-2024 Lymphocytes/100 WBC Auto (Unsp spec) 22.8 % 19-41 [facility] Basophil percentageOrdered B y: Johann Lemons on 03-08-2024 Basophils/100 WBC (Bld) 0.6 % 0-1 [facility] Bilirubin [Mass/Vol] 0.60 mg/dL 0.20-1.00 [facility] Comment on above: For patients on eltr ombopag therapy, use of Dimension Sprakers TBIL is not recommended. Chloride [Moles/Vol] 97 mmol/L 98-107 [facility] Eosinophils/100 WBC (Bld) 3.9 % 0-5 [facility] Glucose [Mass/Vol] 520 mg/dL 74-106 [facility] Comment on above: Critical Result(s) C alled at: 07:30:39 03/08/2024 by: Darrell Santos to Dawna Vazquez. Results read back by same.Glucose result greater than or equal to 200 mg/dLsuggests DIABETES MELLITUS per A.D.A. criteria. Hemoglobin (Bld) [Mass/Vol] 14.8 g/dL 13.0-16.5 [facility] Monocytes/100 WBC (Bld) 6.9 % 0-10 [facility] Neutrophils (Bld) [#/Vol] 4.8 10*3/uL 2.0-7.7 [facility] Neutrophils/100 WBC (Bld) 65.4 % 47-70 [facility] Potassium [Moles/Vol] 4.0 mmol/L 3.5-5.[address] [facility] Protein [Mass/Vol] 7.2 g/dL 6.4-8.2 [facility] Sodium [Moles/Vol] 134 mmol/L 136-145 [facility] WBC (Bld) [#/Vol] 7.3 10*3/uL 4.4-11.0 [facility] Determination of erythrocyte mean corpuscular volume (MCV)Ordered By: Johann Lemons on 03-08-2024 MCV (RBC) [Entitic vol] 82.2 fL 80-94 [facility] Direct bilirubinOrdered By: Johann Lemons on 03-08-2024 Bilirubin.direct [Mass/Vol] 0.19 mg/dL 0.00-0.30 [facility] Erythrocyte distribution wid th ratioOrdered By: Joahnn Lemons on 03-08-2024 Erythrocyte distribution width (RBC) [Ratio] 13.3 % 11.6-14.6 [facility] Erythrocyte distribution wid th standard deviationOrdered By: Johann Lemons on 03-08-2024 Erythrocyte distribution width (RBC) [Entitic vol] 39.7 fL 35.1-43.9 [facility] Hematocrit Auto (Bld) [Volum e fraction]Ordered By: Johann Lemons on 03-08-2024 Hematocrit (Bld) [Volume fraction] 42.9 % 40-54 [facility] Immature granulocytes/100 WB C Auto (Bld)Ordered By: Johann Lemons on 03-08-2024 Immature granulocytes/100 WBC (Bld) 0.400 % 0.0-0.9 [facility] Comment on above: IG% - Immature Granu locytes (promyelocytes, myelocytes and metamyelocytes) > 1% indicates that a LEFT SHIFT is Present. Laboratory - Chemistry and C hemistry - challengeOrdered By: Johann Lemons on 03-08-2024 ALP [Catalytic activity/Vol] 84 U/L 45-117 [facility] ALT [Catalytic activity/Vol] 22 U/L 16-61 [facility] CO2 [Moles/Vol] 31.0 mmol/L 21.0-32.0 [facility] Globulin (S) [Mass/Vol] 3.5 g/dL 2.2-4.2 [facility] Lipase [Catalytic activity/Vol] 17 U/L 13-75 [facility] Comment on above: Please note:LIPASE r evised reference range effective 23. New Lipase methodology. Expected to produce lower values than the previous assay method. NEW Reference Range: 13 - 75 U/L Urea nitrogen/Creatinine [Mass ratio] 16.7 mg/mg 10-20 [facility] Laboratory - Hematology and Cell countsOrdered By: Johann Lemons on 03-08-2024 MCH (RBC) [Entitic mass] 28.4 pg 27.0-32.0 [facility] MCHC (RBC) [Mass/Vol] 34.5 g/dL 32-[address] [facility] Nucleated RBC/100 WBC (Bld) [Ratio] 0 % 0-5 [facility] Platelet mean volume (Bld) [Entitic vol] 9.6 fL 6.2-12.0 [facility] Platelets (Bld) [#/Vol] 194 10*3/uL 150-450 [facility] No Panel InformationOrdered By: Johann Lemons on 03-08-2024 Estimated Creatinine Clearance Calc 99.26 ml/min [facility] Estimated GFR (MDRD) Amer 102 mL/min >60 [facility] Comment on above: GFR Calc Estimated GFR (MDRD) Non-Af Amer 84 mL/min >60 [facility] Comment on above: Non- GFR Calc RBC Auto (Bld) [#/Vol]Ordere d By: Johann Lemons on 03-08-2024 RBC (Bld) [#/Vol] 5.22 10*6/uL 4.6-6.2 [facility] Serum or plasma calcium yayo urement (mass/volume)Ordered By: Johann Lemons on 03-08-2024 Calcium [Mass/Vol] 9.5 mg/dL 8.5-10.1 [facility] Serum or plasma creatinine m easurement (mass/volume)Ordered By: Johann Lemons on 03-08-2024 Creatinine [Mass/Vol] 0.96 mg/dL 0.70-1.[address] [facility] Comment on above: The validity of the calculated GFR & GFRAA in patients over 70 years has not been determined. Clinical correlation is essential. Serum or plasma urea nitroge n measurement (mass/volume)Ordered By: Johann Lemons on 03-08-2024 Urea nitrogen [Mass/Vol] 16 mg/dL 7-18 [facility] Thin prep Papanicolaou smear with manual screeningOrdered By: Johann Lemons on 03-08-2024 Thin prep Papanicolaou smear with manual screening 3.7 g/dL 3.2-5.0 [facility] Thin prep Papanicolaou smear with manual screening 12 U/L 15-37 [facility] Thin prep Papanicolaou smear with manual screening 6 5-15 [facility] Absolute lymphocyte countOrd ered By: Keenan Wu on 02-07-2024 Lymphocytes Auto (Unsp spec) [#/Vol] 1.71 10*3/uL 0.83-4.51 [facility] Automated lymphocyte count a s percentage of total leukocytesOrdered By: Keenan Wu on 02-07-2024 Lymphocytes/100 WBC Auto (Unsp spec) 17.4 % 19-41 [facility] Basophil percentageOrdered B y: Keenan Wu on 02-07-2024 Basophil percentage 0 SEEN /hpf 0-5 [facility] Basophils/100 WBC (Bld) 0.5 % 0-1 [facility] Bilirubin [Mass/Vol] 0.60 mg/dL 0.20-1.00 [facility] Comment on above: For patients on eltr ombopag therapy, use of Dimension [place] TBIL is not recommended. Chloride [Moles/Vol] 98 mmol/L 98-107 [facility] Eosinophils/100 WBC (Bld) 3.1 % 0-5 [facility] Glucose [Mass/Vol] 461 mg/dL 74-106 [facility] Comment on above: Critical Result(s) C alled at: 21:52:34 02/07/2024 by: GLORIA MORA TO [email or web address]. Results read back by same.Glucose result greater than or equal to 200 mg/dLsuggests DIABETES MELLITUS per A.D.A. criteria. Hemoglobin (Bld) [Mass/Vol] 15.4 g/dL 13.0-16.5 [facility] Monocytes/100 WBC (Bld) 5.4 % 0-10 [facility] Neutrophils (Bld) [#/Vol] 7.2 10*3/uL 2.0-7.7 [facility] Neutrophils/100 WBC (Bld) 73.2 % 47-70 [facility] Potassium [Moles/Vol] 3.9 mmol/L 3.5-5.[address] [facility] Protein [Mass/Vol] 7.5 g/dL 6.4-8.2 [facility] Sodium [Moles/Vol] 134 mmol/L 136-145 [facility] WBC (Bld) [#/Vol] 9.9 10*3/uL 4.4-11.0 [facility] Bilirubin Test strip Ql (U)O rdered By: Keenan uW on 02-07-2024 Bilirubin Ql (U) Negative Negative [facility] Determination of erythrocyte mean corpuscular volume (MCV)Ordered By: Keenan Wu on 02-07-2024 MCV (RBC) [Entitic vol] 82.1 fL 80-94 [facility] Erythrocyte distribution wid th ratioOrdered By: Keenan Wu on 02-07-2024 Erythrocyte distribution width (RBC) [Ratio] 13.6 % 11.6-14.6 [facility] Erythrocyte distribution wid th standard deviationOrdered By: Keenan Wu on 02-07-2024 Erythrocyte distribution width (RBC) [Entitic vol] 40.1 fL 35.1-43.9 [facility] Hematocrit Auto (Bld) [Volum e fraction]Ordered By: Keenan Wu on 02-07-2024 Hematocrit (Bld) [Volume fraction] 44.1 % 40-54 [facility] Immature granulocytes/100 WB C Auto (Bld)Ordered By: Keenan Wu on 02-07-2024 Immature granulocytes/100 WBC (Bld) 0.400 % 0.0-0.9 [facility] Comment on above: IG% - Immature Granu locytes (promyelocytes, myelocytes and metamyelocytes) > 1% indicates that a LEFT SHIFT is Present. Ketones Test strip Ql (U)Ord ered By: Keenan Wu on 02-07-2024 Ketones Ql (U) Negative Negative [facility] Laboratory - Chemistry and C hemistry - challengeOrdered By: Keenan Wu on 02-07-2024 Albumin/Globulin [Mass ratio] 1.1 {ratio} 0.9-2.4 [facility] ALP [Catalytic activity/Vol] 105 U/L 45-117 [facility] ALT [Catalytic activity/Vol] 20 U/L 16-61 [facility] CO2 [Moles/Vol] 30.0 mmol/L 21.0-32.0 [facility] Globulin (S) [Mass/Vol] 3.6 g/dL 2.2-4.2 [facility] Urea nitrogen/Creatinine [Mass ratio] 17.4 mg/mg 10-20 [facility] Laboratory - Drug toxicology Ordered By: Keenan Wu on 02-07-2024 Amphetamines Ql (U) Negative <1000 ng/mL [facility] Benzodiazepines Ql (U) Negative < 200 ng/mL [facility] Cannabinoids Screen Ql (U) Negative < 50 ng/mL [facility] Cocaine Ql (U) Negative < 300 ng/mL [facility] Opiates Ql (U) Negative < 300 ng/mL [facility] Laboratory - Hematology and Cell countsOrdered By: Keenan Wu on 02-07-2024 MCH (RBC) [Entitic mass] 28.7 pg 27.0-32.0 [facility] MCHC (RBC) [Mass/Vol] 34.9 g/dL 32-[address] [facility] Nucleated RBC/100 WBC (Bld) [Ratio] 0 % 0-5 [facility] Platelet mean volume (Bld) [Entitic vol] 9.6 fL 6.2-12.0 [facility] Platelets (Bld) [#/Vol] 255 10*3/uL 150-450 [facility] Mucus LM Ql (Urine sed)Order ed By: Keenan Wu on 02-07-2024 Mucus Ql (Urine sed) 0 SEEN /hpf [facility] Nitrite Test strip Ql (U)Ord ered By: Keenan Wu on 02-07-2024 Nitrite Ql (U) Negative Negative [facility] No Panel InformationOrdered By: Keenan Wu on 02-07-2024 Ethyl Alcohol Level < 3.0 mg/dL [facility] Comment on above: The serum:whole bloo d ethanol ratio is approximately 1.14and varies slightly with hematocrit. Medical Alcohol reference interval and critical value innon-tolerant individuals; 50 - 100 Impairment 100 Intoxication 100 - 250 Severe Poisoning 250 - 400 Deep/possible fatal coma MDMA (Ecstasy) Screen Negative < 500 ng/mL [facility] Urine Barbiturates Screen Negative < 200 ng/mL [facility] Urine Drug Screen Comment [facility] Comment on above: CONFIRMATORY TESTING FOR [...] Methadone Screen Negative < 300 ng/mL [facility] Urine RBC 0 SEEN /hpf 0-5 [facility] Estimated Creatinine Clearance Calc 87.42 ml/min [facility] Estimated GFR (MDRD) Amer 88 mL/min >60 [facility] Comment on above: GFR Calc Estimated GFR (MDRD) Non-Af Amer 72 mL/min >60 [facility] Comment on above: Non- GFR Calc Protein Test strip Ql (U)Ord ered By: Keenan Wu on 02-07-2024 Protein Ql (U) 15 mg/dl Negative [facility] RBC Auto (Bld) [#/Vol]Ordere d By: Keenan Wu on 02-07-2024 RBC (Bld) [#/Vol] 5.37 10*6/uL 4.6-6.2 [facility] Serum or plasma calcium yayo urement (mass/volume)Ordered By: Keenan Wu on 02-07-2024 Calcium [Mass/Vol] 10.2 mg/dL 8.5-10.1 [facility] Serum or plasma creatinine m easurement (mass/volume)Ordered By: Keenan Wu on 02-07-2024 Creatinine [Mass/Vol] 1.09 mg/dL 0.70-1.[address] [facility] Comment on above: The validity of the calculated GFR & GFRAA in patients over 70 years has not been determined. Clinical correlation is essential. Serum or plasma urea nitroge n measurement (mass/volume)Ordered By: Keenan Wu on 02-07-2024 Urea nitrogen [Mass/Vol] 19 mg/dL 7-18 [facility] Squamous epithelial cells de tection in urine sediment by light microscopyOrdered By: Keenan Wu on 02-07-2024 Epithelial cells.squamous LM Ql (Urine sed) 0 SEEN /hpf 0-5 [facility] Thin prep Papanicolaou smear with manual screeningOrdered By: Keenan Wu on 02-07-2024 Thin prep Papanicolaou smear with manual screening 379 mg/dL 74-106 [facility] Comment on above: MANAGEMENT OF PATIEN T CARE PER NURSING PROTOCOL Thin prep Papanicolaou smear with manual screening 3.9 g/dL 3.2-5.0 [facility] Thin prep Papanicolaou smear with manual screening 12 U/L 15-37 [facility] Thin prep Papanicolaou smear with manual screening 6 5-15 [facility] Urine blood detectionOrdered By: Keenan Wu on 02-07-2024 RBC Ql (U) Negative Negative [facility] Urine clarityOrdered By: Osvaldo Wu on 02-07-2024 Clarity (U) Clear Clear [facility] Urine color determinationOrd ered By: Keenan Wu on 02-07-2024 Color (U) Yellow Yellow [facility] Urine glucose detectionOrder ed By: Keenan Wu on 02-07-2024 Glucose Ql (U) 1000 mg/dl Normal [facility] Urine leukocyte esterase det ection by dipstickOrdered By: Keenan Wu on 02-07-2024 Leukocyte esterase Test strip Ql (U) Negative Negative [facility] Urine pHOrdered By: Keenan overton on 02-07-2024 pH (U) 6.0 [pH] 5.0 - 8.0 [facility] Urine phencyclidine (PCP) de tectionOrdered By: Keenan Wu on 02-07-2024 Phencyclidine Ql (U) Negative < 25 ng/mL [facility] Urine sediment bacteria coun t by microscopy (number/high power field)Ordered By: Keenan Wu on 02-07-2024 Bacteria LM.HPF (Urine sed) [#/Area] 0 /[HPF] None Seen [facility] Urine specific gravity measu rementOrdered By: Keenan Wu on 02-07-2024 Specific gravity (U) [Rel density] 1.015 1.002-1.030 [facility] Urine urobilinogen measureme ntOrdered By: Keenan Wu on 02-07-2024 Urobilinogen Ql (U) Normal mg/dl Normal [facility] Amorphous sediment detection in urine sediment by light microscopyOrdered By: Shania Disla on 01-27-2024 Amorphous sediment LM Ql (Urine sed) 0 SEEN [facility] Basophil percentageOrdered B y: Shania Disla on 01-27-2024 Basophil percentage 0 SEEN /hpf 0-5 [facility] Bilirubin Test strip Ql (U)O rdered By: Shania Disla on 01-27-2024 Bilirubin Ql (U) Negative Negative [facility] Calcium oxalate crystals det ection in urine sediment by light microscopyOrdered By: Shania Disla on 01-27-2024 Calcium oxalate crystals LM Ql (Urine sed) 0 SEEN /hpf [facility] Hyaline casts LM.LPF (Urine sed) [#/Area]Ordered By: Shania Disla on 01-27-2024 Hyaline casts (Urine sed) [#/Area] 0 /[LPF] 0-5 [facility] Ketones Test strip Ql (U)Ord ered By: Shania Disla on 01-27-2024 Ketones Ql (U) Negative Negative [facility] Magnesium ammonium phosphate crystal detectionOrdered By: Shania Disla on 01-27-2024 Triple phosphate crystals LM Ql (Urine sed) 0 SEEN /hpf [facility] Mucus LM Ql (Urine sed)Order ed By: Shania Disla on 01-27-2024 Mucus Ql (Urine sed) 0 SEEN /hpf [facility] Nitrite Test strip Ql (U)Ord ered By: Shania Disla on 01-27-2024 Nitrite Ql (U) Negative Negative [facility] No Panel InformationOrdered By: Shania Disla on 01-27-2024 Urine RBC 0 SEEN /hpf 0-5 [facility] Protein Test strip Ql (U)Ord ered By: Shania Disla on 01-27-2024 Protein Ql (U) Negative Negative [facility] Squamous epithelial cells de tection in urine sediment by light microscopyOrdered By: Shania Disla on 01-27-2024 Epithelial cells.squamous LM Ql (Urine sed) 5-10 SEEN /hpf 0-5 [facility] Thin prep Papanicolaou smear with manual screeningOrdered By: Shania Disla on 01-27-2024 Thin prep Papanicolaou smear with manual screening 277 mg/dL 74-106 [facility] Comment on above: MANAGEMENT OF PATIEN T CARE PER NURSING PROTOCOL Urine blood detectionOrdered By: Shania Disla on 01-27-2024 RBC Ql (U) Negative Negative [facility] Urine clarityOrdered By: Anamaria Disla on 01-27-2024 Clarity (U) Clear Clear [facility] Urine coarse granular cast d etectionOrdered By: Shania Disla on 01-27-2024 Coarse Granular Casts LM Ql (Urine sed) 0 SEEN /lpf 0-5 /lpf [facility] Urine color determinationOrd ered By: Shania Disla on 01-27-2024 Color (U) Straw Yellow [facility] Urine glucose detectionOrder ed By: Shania Disla on 01-27-2024 Glucose Ql (U) 1000 mg/dl Normal [facility] Urine leukocyte esterase det ection by dipstickOrdered By: Shania Disla on 01-27-2024 Leukocyte esterase Test strip Ql (U) Negative Negative [facility] Urine pHOrdered By: Shania Disla on 01-27-2024 pH (U) 6.0 [pH] 5.0 - 8.0 [facility] Urine sediment Trichomonas s pecies count by microscopy (number/low power field)Ordered By: Shania Disla on 01-27-2024 Trichomonas sp LM.LPF (Urine sed) [#/Area] 0 SEEN /hpf None Seen [facility] Urine sediment bacteria coun t by microscopy (number/high power field)Ordered By: Shania Disla on 01-27-2024 Bacteria LM.HPF (Urine sed) [#/Area] 0 /[HPF] None Seen [facility] Urine sediment erythrocyte c ast detection by light microscopyOrdered By: Shania Disla on 01-27-2024 RBC casts LM Ql (Urine sed) 0 SEEN /lpf None Seen [facility] Urine sediment fine granular cast count by microscopy (number/low power field)Ordered By: Shania Disla on 01-27-2024 Fine Granular Casts LM.LPF (Urine sed) [#/Area] 0 SEEN /lpf 0-5 [facility] Urine sediment leukocyte pooja t count by microscopy (number/low power field)Ordered By: Shania Disla on 01-27-2024 WBC casts LM.LPF (Urine sed) [#/Area] 0 SEEN /lpf None Seen [facility] Urine sediment unidentified crystal count by microscopy (number/high powered field)Ordered By: Shania Disla on 01-27-2024 Unidentified crystals LM.HPF (Urine sed) [#/Area] 0 SEEN /hpf None Seen [facility] Urine sediment uric acid cry stal count by microscopy (number/high power field)Ordered By: Shania Disla on 01-27-2024 Urate crystals LM.HPF (Urine sed) [#/Area] 0 /[HPF] [facility] Urine sediment yeast count b y microscopy (number/high powered field)Ordered By: Shania Disla on 01-27-2024 Yeast LM.HPF (Urine sed) [#/Area] RARE /hpf None Seen [facility] Urine specific gravity measu rementOrdered By: Shania Disla on 01-27-2024 Specific gravity (U) [Rel density] 1.015 1.002-1.030 [facility] Urine urobilinogen measureme ntOrdered By: Shania Disla on 01-27-2024 Urobilinogen Ql (U) Normal mg/dl Normal [facility] Waxy casts detection in urin e sediment by light microscopyOrdered By: Shania Disla on 01-27-2024 Waxy casts LM Ql (Urine sed) 0 SEEN /lpf None Seen [facility] Absolute lymphocyte countOrd ered By: Shania Disla on 01-26-2024 Lymphocytes Auto (Unsp spec) [#/Vol] 0.82 10*3/uL 0.83-4.51 [facility] Automated lymphocyte count a s percentage of total leukocytesOrdered By: Shania Disla on 01-26-2024 Lymphocytes/100 WBC Auto (Unsp spec) 8.4 % 19-41 [facility] Basophil percentageOrdered B y: Shania Disla on 01-26-2024 Basophils/100 WBC (Bld) 0.2 % 0-1 [facility] Bilirubin [Mass/Vol] 0.70 mg/dL 0.20-1.00 [facility] Comment on above: For patients on eltr ombopag therapy, use of Dimension [place] TBIL is not recommended. Chloride [Moles/Vol] 100 mmol/L 98-107 [facility] Eosinophils/100 WBC (Bld) 1.8 % 0-5 [facility] Glucose [Mass/Vol] 553 mg/dL 74-106 [facility] Comment on above: Glucose result great er than or equal to 200 mg/dLsuggests DIABETES MELLITUS per A.D.A. criteria. Hemoglobin (Bld) [Mass/Vol] 14.3 g/dL 13.0-16.5 [facility] Monocytes/100 WBC (Bld) 6.3 % 0-10 [facility] Neutrophils (Bld) [#/Vol] 8.1 10*3/uL 2.0-7.7 [facility] Neutrophils/100 WBC (Bld) 83.0 % 47-70 [facility] Potassium [Moles/Vol] 4.2 mmol/L 3.5-5.[address] [facility] Protein [Mass/Vol] 6.8 g/dL 6.4-8.2 [facility] Sodium [Moles/Vol] 135 mmol/L 136-145 [facility] Comment on above: Critical Result(s) C alled at: 00:43:16 01/27/2024 by: Britney CHACON. Results read back by same. WBC (Bld) [#/Vol] 9.8 10*3/uL 4.4-11.0 [facility] Determination of erythrocyte mean corpuscular volume (MCV)Ordered By: Shania Disla on 01-26-2024 MCV (RBC) [Entitic vol] 82.4 fL 80-94 [facility] Direct bilirubinOrdered By: Shania Disla on 01-26-2024 Bilirubin.direct [Mass/Vol] 0.20 mg/dL 0.00-0.30 [facility] Erythrocyte distribution wid th ratioOrdered By: Shania Disla on 01-26-2024 Erythrocyte distribution width (RBC) [Ratio] 13.4 % 11.6-14.6 [facility] Erythrocyte distribution wid th standard deviationOrdered By: Shania Disla on 01-26-2024 Erythrocyte distribution width (RBC) [Entitic vol] 39.9 fL 35.1-43.9 [facility] Hematocrit Auto (Bld) [Volum e fraction]Ordered By: Shania Disla on 01-26-2024 Hematocrit (Bld) [Volume fraction] 40.8 % 40-54 [facility] Immature granulocytes/100 WB C Auto (Bld)Ordered By: Shania Disla on 01-26-2024 Immature granulocytes/100 WBC (Bld) 0.300 % 0.0-0.9 [facility] Comment on above: IG% - Immature Granu locytes (promyelocytes, myelocytes and metamyelocytes) > 1% indicates that a LEFT SHIFT is Present. Laboratory - Chemistry and C hemistry - challengeOrdered By: Shania Disla on 01-26-2024 ALP [Catalytic activity/Vol] 71 U/L 45-117 [facility] ALT [Catalytic activity/Vol] 24 U/L 16-61 [facility] CO2 [Moles/Vol] 30.0 mmol/L 21.0-32.0 [facility] Globulin (S) [Mass/Vol] 3.2 g/dL 2.2-4.2 [facility] Urea nitrogen/Creatinine [Mass ratio] 12.5 mg/mg 10-20 [facility] Laboratory - Hematology and Cell countsOrdered By: Shania Disla on 01-26-2024 MCH (RBC) [Entitic mass] 28.9 pg 27.0-32.0 [facility] MCHC (RBC) [Mass/Vol] 35.0 g/dL 32-[address] [facility] Nucleated RBC/100 WBC (Bld) [Ratio] 0 % 0-5 [facility] Platelet mean volume (Bld) [Entitic vol] 9.4 fL 6.2-12.0 [facility] Platelets (Bld) [#/Vol] 167 10*3/uL 150-450 [facility] Laboratory - Microbiology an d Antimicrobial susceptibilityOrdered By: Shania Disla on 01-26-2024 SARS-CoV-2 (COVID-19) RNA IOANA+probe Ql (Unsp spec) [facility] No Panel InformationOrdered By: Shania Disla on 01-26-2024 Estimated Creatinine Clearance Calc 85.08 ml/min [facility] Estimated GFR (MDRD) Amer 85 mL/min >60 [facility] Comment on above: GFR Calc Estimated GFR (MDRD) Non-Af Amer 70 mL/min >60 [facility] Comment on above: Non- GFR Calc RBC Auto (Bld) [#/Vol]Ordere d By: Shania Disla on 01-26-2024 RBC (Bld) [#/Vol] 4.95 10*6/uL 4.6-6.2 [facility] Serum or plasma acetone yayo urement (mass/volume)Ordered By: Shania Disla on 01-26-2024 Acetone [Mass/Vol] Negative NEG [facility] Serum or plasma calcium yayo urement (mass/volume)Ordered By: Shania Disla on 01-26-2024 Calcium [Mass/Vol] 9.3 mg/dL 8.5-10.1 [facility] Serum or plasma creatinine m easurement (mass/volume)Ordered By: Shania Disla on 01-26-2024 Creatinine [Mass/Vol] 1.12 mg/dL 0.70-1.[address] [facility] Comment on above: The validity of the calculated GFR & GFRAA in patients over 70 years has not been determined. Clinical correlation is essential. Serum or plasma urea nitroge n measurement (mass/volume)Ordered By: Shania Disla on 01-26-2024 Urea nitrogen [Mass/Vol] 14 mg/dL 7-18 [facility] Thin prep Papanicolaou smear with manual screeningOrdered By: Shania Disla on 01-26-2024 Thin prep Papanicolaou smear with manual screening 3.6 g/dL 3.2-5.0 [facility] Thin prep Papanicolaou smear with manual screening 16 U/L 15-37 [facility] Thin prep Papanicolaou smear with manual screening 5 5-15 [facility] Erythrocyte sedimentation ra teOrdered By: Linden Chavez on 01-05-2024 ESR (Bld) [Velocity] 3 mm/h 0-20 [facility] No Panel InformationOrdered By: Linden Chavez on 01-05-2024 C-Reactive Protein Extended Range 3.41 mg/L 0.0-3.0 [facility] Comment on above: C-Reactive Protein ( CRP) provides useful information for thediagnosis, therapy and monitoring of inflammatory processesand associated diseases. For the evaluation of Relative Riskfor Cardiovascular Disease, a High Sensitivity CRP (HSCRP)should be ordered. Endomysial IgA Antibody Negative Negative [facility] Serum or plasma IgA measurem ent (mass/volume)Ordered By: Linden Chavez on 01-05-2024 IgA [Mass/Vol] 363 mg/dL 61-437 [facility] Comment on above: Performed at: - [facility] [place], [place] [id number] Director: Rasheed Denney PhD, Phone: [phone] Serum or plasma thyroid stim ulating hormone (TSH) measurement (units/volume)Ordered By: Linden Chavez on 01-05-2024 TSH Qn 8.45 uIU/mL 0.358-3.74 [facility] Serum tissue transglutaminas e IgA antibody assay (units/volume)Ordered By: Linden Chavez on 01-05-2024 tTG IgA Qn (S) <2 U/mL 0-3 [facility] Comment on above: Negative 0 - 3 Weak Positive 4 - 10 Positive >10 Tissue Transglutaminase (tTG) has been identified as the endomysial antigen. Studies have demonstr- ated that endomysial IgA antibodies have over 99% specificity for gluten sensitive enteropathy. Whole blood hemoglobin A1c/t otal hemoglobin ratio (mass fraction)Ordered By: Linden Chavez on 01-05-2024 HbA1c (Bld) [Mass fraction] 12.2 % 3.8-5.6 [facility] Comment on above: Normal < 5.7 % Predi abetic 5.7 - 6.4 % Diabetic >or= 6.5 % Please note range changes. Basophil percentageOrdered B y: Shania Disla on 12-25-2023 Chloride [Moles/Vol] 102 mmol/L 98-107 [facility] Glucose [Mass/Vol] 476 mg/dL 74-106 [facility] Comment on above: Critical Result(s) C alled at: 09:52:20 12/25/2023 by: Santana Gaytan to Gabriela KOENIG (ER). Results read back by same.Glucose result greater than or equal to 200 mg/dLsuggests DIABETES MELLITUS per A.D.A. criteria. Potassium [Moles/Vol] 3.8 mmol/L 3.5-5.[address] [facility] Sodium [Moles/Vol] 134 mmol/L 136-145 [facility] - Chemistry and C hemistry - challengeOrdered By: Shania Disla on 12-25-2023 CO2 [Moles/Vol] 28.0 mmol/L 21.0-32.0 [facility] Urea nitrogen/Creatinine [Mass ratio] 16.5 mg/mg 10-20 [facility] No Panel InformationOrdered By: Shania Disla on 12-25-2023 Estimated Creatinine Clearance Calc 82.86 ml/min [facility] Estimated GFR (MDRD) Amer 82 mL/min >60 [facility] Comment on above: GFR Calc Estimated GFR (MDRD) Non-Af Amer 68 mL/min >60 [facility] Comment on above: Non- GFR Calc Serum or plasma calcium yayo urement (mass/volume)Ordered By: Shania Disla on 12-25-2023 Calcium [Mass/Vol] 9.3 mg/dL 8.5-10.1 [facility] Serum or plasma creatinine m easurement (mass/volume)Ordered By: Shania Disla on 12-25-2023 Creatinine [Mass/Vol] 1.15 mg/dL 0.70-1.[address] [facility] Comment on above: The validity of the calculated GFR & GFRAA in patients over 70 years has not been determined. Clinical correlation is essential. Serum or plasma urea nitroge n measurement (mass/volume)Ordered By: Shania Disla on 12-25-2023 Urea nitrogen [Mass/Vol] 19 mg/dL 7-18 [facility] Thin prep Papanicolaou smear with manual screeningOrdered By: Shania Disla on 12-25-2023 Thin prep Papanicolaou smear with manual screening 354 mg/dL 74-106 [facility] Comment on above: MANAGEMENT OF PATIEN T CARE PER NURSING PROTOCOL Thin prep Papanicolaou smear with manual screening 4 5-15 [facility] Absolute lymphocyte countOrd ered By: Barry Mathew on 11-22-2023 Lymphocytes Auto (Unsp spec) [#/Vol] 1.40 10*3/uL 0.83-4.51 [facility] Automated lymphocyte count a s percentage of total leukocytesOrdered By: Barry Mathew on 11-22-2023 Lymphocytes/100 WBC Auto (Unsp spec) 18.9 % 19-41 [facility] Basophil percentageOrdered B y: Barry Mathew on 11-22-2023 Basophil percentage 0-5 SEEN /hpf 0-5 [facility] Basophils/100 WBC (Bld) 0.4 % 0-1 [facility] Bilirubin [Mass/Vol] 0.80 mg/dL 0.20-1.00 [facility] Comment on above: For patients on eltr ombopag therapy, use of Dimension Sprakers TBIL is not recommended. Chloride [Moles/Vol] 101 mmol/L 98-107 [facility] Eosinophils/100 WBC (Bld) 4.5 % 0-5 [facility] Glucose [Mass/Vol] 357 mg/dL 74-106 [facility] Comment on above: Glucose result great er than or equal to 200 mg/dLsuggests DIABETES MELLITUS per A.D.A. criteria. Hemoglobin (Bld) [Mass/Vol] 15.7 g/dL 13.0-16.5 [facility] Monocytes/100 WBC (Bld) 5.0 % 0-10 [facility] Neutrophils (Bld) [#/Vol] 5.3 10*3/uL 2.0-7.7 [facility] Neutrophils/100 WBC (Bld) 70.9 % 47-70 [facility] Potassium [Moles/Vol] 3.8 mmol/L 3.5-5.[address] [facility] Protein [Mass/Vol] 7.6 g/dL 6.4-8.2 [facility] Sodium [Moles/Vol] 137 mmol/L 136-145 [facility] WBC (Bld) [#/Vol] 7.4 10*3/uL 4.4-11.0 [facility] Bilirubin Test strip Ql (U)O rdered By: Barry Mathew on 11-22-2023 Bilirubin Ql (U) Negative Negative [facility] Determination of erythrocyte mean corpuscular volume (MCV)Ordered By: Barry Mathew on 11-22-2023 MCV (RBC) [Entitic vol] 81.6 fL 80-94 [facility] Erythrocyte distribution wid th ratioOrdered By: Barry Mathew on 11-22-2023 Erythrocyte distribution width (RBC) [Ratio] 13.4 % 11.6-14.6 [facility] Erythrocyte distribution wid th standard deviationOrdered By: Barry Mathew on 11-22-2023 Erythrocyte distribution width (RBC) [Entitic vol] 39.2 fL 35.1-43.9 [facility] Hematocrit Auto (Bld) [Volum e fraction]Ordered By: Barry Mathew on 11-22-2023 Hematocrit (Bld) [Volume fraction] 45.6 % 40-54 [facility] Immature granulocytes/100 WB C Auto (Bld)Ordered By: Barry Mathew on 11-22-2023 Immature granulocytes/100 WBC (Bld) 0.300 % 0.0-0.9 [facility] Comment on above: IG% - Immature Granu locytes (promyelocytes, myelocytes and metamyelocytes) > 1% indicates that a LEFT SHIFT is Present. Ketones Test strip Ql (U)Ord ered By: Barry Mathew on 11-22-2023 Ketones Ql (U) Negative Negative [facility] - Chemistry and C hemistry - challengeOrdered By: Barry aMthew on 11-22-2023 Albumin/Globulin [Mass ratio] 0.9 {ratio} 0.9-2.4 [facility] ALP [Catalytic activity/Vol] 100 U/L 45-117 [facility] ALT [Catalytic activity/Vol] 16 U/L 16-61 [facility] CO2 [Moles/Vol] 33.0 mmol/L 21.0-32.0 [facility] Globulin (S) [Mass/Vol] 3.9 g/dL 2.2-4.2 [facility] Urea nitrogen/Creatinine [Mass ratio] 13.9 mg/mg 10-20 [facility] - Hematology and Cell countsOrdered By: Barry Mathew on 11-22-2023 MCH (RBC) [Entitic mass] 28.1 pg 27.0-32.0 [facility] MCHC (RBC) [Mass/Vol] 34.4 g/dL 32-[address] [facility] Nucleated RBC/100 WBC (Bld) [Ratio] 0 % 0-5 [facility] Platelets (Bld) [#/Vol] 220 10*3/uL 150-450 [facility] Mucus LM Ql (Urine sed)Order ed By: Barry Mathew on 11-22-2023 Mucus Ql (Urine sed) RARE /hpf [facility] Nitrite Test strip Ql (U)Ord ered By: Barry Mathew on 11-22-2023 Nitrite Ql (U) Negative Negative [facility] No Panel InformationOrdered By: Barry Mathew on 11-22-2023 Urine RBC 0 SEEN /hpf 0-5 [facility] Estimated Creatinine Clearance Calc 101.37 ml/min [facility] Estimated GFR (MDRD) Amer 105 mL/min >60 [facility] Comment on above: GFR Calc Estimated GFR (MDRD) Non-Af Amer 86 mL/min >60 [facility] Comment on above: Non- GFR Calc Troponin I High Sensitivity 5 pg/mL 3.0-78.0 [facility] Comment on above: Please Note: New Kira t Units and Gender Specific Reference Ranges. For more information see Policy Stat Procedure Sprakers High Sensitivity Troponin (TNIH) and attachments. Platelet mean volume Kamlesh-Ec ker (Bld) [Entitic vol]Ordered By: Barry Mathew on 11-22-2023 Platelet mean volume (Bld) [Entitic vol] 9.3 fL 6.2-12.0 [facility] Protein Test strip Ql (U)Ord ered By: Barry Mathew on 11-22-2023 Protein Ql (U) 15 mg/dl Negative [facility] RBC Auto (Bld) [#/Vol]Ordere d By: Barry Mathew on 11-22-2023 RBC (Bld) [#/Vol] 5.59 10*6/uL 4.6-6.2 [facility] Serum or plasma calcium yayo urement (mass/volume)Ordered By: Barry Mathew on 11-22-2023 Calcium [Mass/Vol] 10.2 mg/dL 8.5-10.1 [facility] Serum or plasma creatinine m easurement (mass/volume)Ordered By: Barry Mathew on 11-22-2023 Creatinine [Mass/Vol] 0.94 mg/dL 0.70-1.[address] [facility] Comment on above: The validity of the calculated GFR & GFRAA in patients over 70 years has not been determined. Clinical correlation is essential. Serum or plasma urea nitroge n measurement (mass/volume)Ordered By: Barry Mathew on 11-22-2023 Urea nitrogen [Mass/Vol] 13 mg/dL 7-18 [facility] Squamous epithelial cells de tection in urine sediment by light microscopyOrdered By: Barry Mathew on 11-22-2023 Epithelial cells.squamous LM Ql (Urine sed) 0-5 SEEN /hpf 0-5 [facility] Thin prep Papanicolaou smear with manual screeningOrdered By: Barry Mathew on 11-22-2023 Thin prep Papanicolaou smear with manual screening 3.7 g/dL 3.2-5.0 [facility] Thin prep Papanicolaou smear with manual screening 9 U/L 15-37 [facility] Thin prep Papanicolaou smear with manual screening 3 5-15 [facility] Urine blood detectionOrdered By: Barry Mathew on 11-22-2023 RBC Ql (U) Negative Negative [facility] Urine clarityOrdered By: Silva Mathew on 11-22-2023 Clarity (U) Sl. Cloudy Clear [facility] Urine color determinationOrd ered By: Barry Mathew on 11-22-2023 Color (U) Yellow Yellow [facility] Urine glucose detectionOrder ed By: Barry Mathew on 11-22-2023 Glucose Ql (U) 1000 mg/dl Normal [facility] Urine leukocyte esterase det ection by dipstickOrdered By: Barry Mathew on 11-22-2023 Leukocyte esterase Test strip Ql (U) 25 /ul Negative [facility] Urine pHOrdered By: Barry otoole on 11-22-2023 pH (U) 5.0 [pH] 5.0 - 8.0 [facility] Urine sediment bacteria coun t by microscopy (number/high power field)Ordered By: Barry Mathew on 11-22-2023 Bacteria LM.HPF (Urine sed) [#/Area] RARE /hpf None Seen [facility] Urine sediment yeast count b y microscopy (number/high powered field)Ordered By: Barry Mathew on 11-22-2023 Yeast LM.HPF (Urine sed) [#/Area] RARE /hpf None Seen [facility] Urine specific gravity measu rementOrdered By: Barry Mathew on 11-22-2023 Specific gravity (U) [Rel density] 1.020 1.002-1.030 [facility] Urine urobilinogen measureme ntOrdered By: Barry Mathew on 11-22-2023 Urobilinogen Ql (U) 1 mg/dl Normal [facility] Absolute lymphocyte countOrd ered By: Live Ashley on 10-01-2023 Lymphocytes Auto (Unsp spec) [#/Vol] 1.41 10*3/uL 0.83-4.51 [facility] Basophil percentageOrdered B y: Live Ashley on 10-01-2023 Basophils/100 WBC (Bld) 0.3 % 0-1 [facility] Chloride [Moles/Vol] 105 mmol/L 98-107 [facility] Eosinophils/100 WBC (Bld) 2.2 % 0-5 [facility] Glucose [Mass/Vol] 429 mg/dL 74-106 [facility] Comment on above: Glucose result great er than or equal to 200 mg/dLsuggests DIABETES MELLITUS per A.D.A. criteria. Neutrophils (Bld) [#/Vol] 6.4 10*3/uL 2.0-7.7 [facility] Neutrophils/100 WBC (Bld) 74.6 % 47-70 [facility] Potassium [Moles/Vol] 4.0 mmol/L 3.5-5.[address] [facility] Sodium [Moles/Vol] 137 mmol/L 136-145 [facility] WBC (Bld) [#/Vol] 8.6 10*3/uL 4.4-11.0 [facility] Blood erythrocytes count (nu mber/volume)Ordered By: Live Ashley on 10-01-2023 RBC (Bld) [#/Vol] 4.67 10*6/uL 4.6-6.2 [facility] Blood hemoglobin measurement (mass/volume)Ordered By: Live Ashley on 10-01-2023 Hemoglobin (Bld) [Mass/Vol] 13.4 g/dL 13.0-16.5 [facility] Blood lymphocytes/100 leukoc ytesOrdered By: Live Ashley on 10-01-2023 Lymphocytes/100 WBC (Bld) 16.4 % 19-41 [facility] Blood monocytes/100 leukocyt esOrdered By: Live Ashley on 10-01-2023 Monocytes/100 WBC (Bld) 6.3 % 0-10 [facility] Blood platelet mean volumeOr dered By: Live Ashley on 10-01-2023 Platelet mean volume (Bld) [Entitic vol] 9.4 fL 6.2-12.0 [facility] Determination of erythrocyte mean corpuscular volume (MCV)Ordered By: Live Ashley on 10-01-2023 MCV (RBC) [Entitic vol] 84.4 fL 80-94 [facility] Hematocrit Auto (Bld) [Volum e fraction]Ordered By: Live Ashley on 10-01-2023 Hematocrit (Bld) [Volume fraction] 39.4 % 40-54 [facility] - Chemistry and C hemistry - challengeOrdered By: Live Ashley on 10-01-2023 CO2 [Moles/Vol] 28.0 mmol/L 21.0-32.0 [facility] Urea nitrogen/Creatinine [Mass ratio] 14.9 mg/mg 10-20 [facility] - Hematology and Cell countsOrdered By: Live Ashley on 10-01-2023 Erythrocyte distribution width (RBC) [Entitic vol] 41.7 fL 35.1-43.9 [facility] Erythrocyte distribution width (RBC) [Ratio] 13.7 % 11.6-14.6 [facility] Immature granulocytes/100 WBC (Bld) 0.200 % 0.0-0.9 [facility] Comment on above: IG% - Immature Granu locytes (promyelocytes, myelocytes and metamyelocytes) > 1% indicates that a LEFT SHIFT is Present. MCH (RBC) [Entitic mass] 28.7 pg 27.0-32.0 [facility] Nucleated RBC/100 WBC (Bld) [Ratio] 0 % 0-5 [facility] MCHC Auto (RBC) [Mass/Vol]Or dered By: Live Ashley on 10-01-2023 MCHC (RBC) [Mass/Vol] 34.0 g/dL 32-[address] [facility] No Panel InformationOrdered By: Live Ashley on 10-01-2023 Estimated Creatinine Clearance Calc 83.59 ml/min [facility] Estimated GFR (MDRD) Amer 83 mL/min >60 [facility] Comment on above: GFR Calc Estimated GFR (MDRD) Non-Af Amer 69 mL/min >60 [facility] Comment on above: Non- GFR Calc Platelets bldOrdered By: Pankaj Ashley on 10-01-2023 Platelets (Bld) [#/Vol] 211 10*3/uL 150-450 [facility] Serum or plasma calcium yayo urement (mass/volume)Ordered By: Live Ashley on 10-01-2023 Calcium [Mass/Vol] 8.8 mg/dL 8.5-10.1 [facility] Serum or plasma creatinine m easurement (mass/volume)Ordered By: Live Ashley on 10-01-2023 Creatinine [Mass/Vol] 1.14 mg/dL 0.70-1.[address] [facility] Comment on above: The validity of the calculated GFR & GFRAA in patients over 70 years has not been determined. Clinical correlation is essential. Serum or plasma urea nitroge n measurement (mass/volume)Ordered By: Live Ashley on 10-01-2023 Urea nitrogen [Mass/Vol] 17 mg/dL 7-18 [facility] Stool gastrointestinal hemog lobin detection by immunologic methodOrdered By: Live Ashley on 10-01-2023 Lower GI hemoglobin IA Ql (Stl) [facility] Lower GI hemoglobin IA Ql (Stl) [facility] Thin prep Papanicolaou smear with manual screeningOrdered By: Live Ashley on 10-01-2023 Thin prep Papanicolaou smear with manual screening 4 5-15 [facility] Absolute lymphocyte countOrd ered By: Barry Mathew on 09-29-2023 Lymphocytes Auto (Unsp spec) [#/Vol] 1.47 10*3/uL 0.83-4.51 [facility] Basophil percentageOrdered B y: Barry Mathew on 09-29-2023 Basophils/100 WBC (Bld) 0.6 % 0-1 [facility] Bilirubin [Mass/Vol] 0.40 mg/dL 0.20-1.00 [facility] Comment on above: For patients on eltr ombopag therapy, use of Dimension [place]rakers TBIL is not recommended. Chloride [Moles/Vol] 105 mmol/L 98-107 [facility] Eosinophils/100 WBC (Bld) 1.7 % 0-5 [facility] Glucose [Mass/Vol] 213 mg/dL 74-106 [facility] Comment on above: Glucose result great er than or equal to 200 mg/dLsuggests DIABETES MELLITUS per A.D.A. criteria. Neutrophils (Bld) [#/Vol] 8.5 10*3/uL 2.0-7.7 [facility] Neutrophils/100 WBC (Bld) 78.5 % 47-70 [facility] Potassium [Moles/Vol] 3.9 mmol/L 3.5-5.[address] [facility] Protein [Mass/Vol] 7.2 g/dL 6.4-8.2 [facility] Sodium [Moles/Vol] 137 mmol/L 136-145 [facility] WBC (Bld) [#/Vol] 10.9 10*3/uL 4.4-11.0 [facility] Blood erythrocytes count (nu mber/volume)Ordered By: Barry Mathew on 09-29-2023 RBC (Bld) [#/Vol] 4.98 10*6/uL 4.6-6.2 [facility] Blood hemoglobin measurement (mass/volume)Ordered By: Barry Mathew on 09-29-2023 Hemoglobin (Bld) [Mass/Vol] 14.0 g/dL 13.0-16.5 [facility] Blood lymphocytes/100 leukoc ytesOrdered By: Barry Mathew on 09-29-2023 Lymphocytes/100 WBC (Bld) 13.5 % 19-41 [facility] Blood monocytes/100 leukocyt esOrdered By: Barry Mathew on 09-29-2023 Monocytes/100 WBC (Bld) 5.2 % 0-10 [facility] Blood platelet mean volumeOr dered By: Barry Mathew on 09-29-2023 Platelet mean volume (Bld) [Entitic vol] 9.2 fL 6.2-12.0 [facility] Determination of erythrocyte mean corpuscular volume (MCV)Ordered By: Barry Mathew on 09-29-2023 MCV (RBC) [Entitic vol] 82.5 fL 80-94 [facility] Hematocrit Auto (Bld) [Volum e fraction]Ordered By: Barry Mathew on 09-29-2023 Hematocrit (Bld) [Volume fraction] 41.1 % 40-54 [facility] - Chemistry and C hemistry - challengeOrdered By: Barry Mathew on 09-29-2023 ALP [Catalytic activity/Vol] 100 U/L 45-117 [facility] ALT [Catalytic activity/Vol] 14 U/L 16-61 [facility] CO2 [Moles/Vol] 28.0 mmol/L 21.0-32.0 [facility] Globulin (S) [Mass/Vol] 3.7 g/dL 2.2-4.2 [facility] Lipase [Catalytic activity/Vol] 13 U/L 13-75 [facility] Comment on above: Please note:LIPASE r evised reference range effective 23. New Lipase methodology. Expected to produce lower values than the previous assay method. NEW Reference Range: 13 - 75 U/L Urea nitrogen/Creatinine [Mass ratio] 16.5 mg/mg 10-20 [facility] - Hematology and Cell countsOrdered By: Barry Mathew on 09-29-2023 Erythrocyte distribution width (RBC) [Entitic vol] 39.8 fL 35.1-43.9 [facility] Erythrocyte distribution width (RBC) [Ratio] 13.4 % 11.6-14.6 [facility] Immature granulocytes/100 WBC (Bld) 0.500 % 0.0-0.9 [facility] Comment on above: IG% - Immature Granu locytes (promyelocytes, myelocytes and metamyelocytes) > 1% indicates that a LEFT SHIFT is Present. MCH (RBC) [Entitic mass] 28.1 pg 27.0-32.0 [facility] Nucleated RBC/100 WBC (Bld) [Ratio] 0 % 0-5 [facility] MCHC Auto (RBC) [Mass/Vol]Or dered By: Barry Mathew on 09-29-2023 MCHC (RBC) [Mass/Vol] 34.1 g/dL 32-[address] [facility] No Panel InformationOrdered By: Barry Mathew on 09-29-2023 Estimated Creatinine Clearance Calc 92.51 ml/min [facility] Estimated GFR (MDRD) Amer 94 mL/min >60 [facility] Comment on above: GFR Calc Estimated GFR (MDRD) Non-Af Amer 77 mL/min >60 [facility] Comment on above: Non- GFR Calc Platelets bldOrdered By: Silva Mathew on 09-29-2023 Platelets (Bld) [#/Vol] 226 10*3/uL 150-450 [facility] Serum or plasma albumin yayo urement (mass/volume)Ordered By: Barry Mathew on 09-29-2023 Albumin [Mass/Vol] 3.5 g/dL 3.2-5.0 [facility] Serum or plasma albumin/glob ulin mass ratioOrdered By: Barry Mathew on 09-29-2023 Albumin/Globulin [Mass ratio] 0.9 {ratio} 0.9-2.4 [facility] Serum or plasma calcium yayo urement (mass/volume)Ordered By: Barry Mathew on 09-29-2023 Calcium [Mass/Vol] 8.7 mg/dL 8.5-10.1 [facility] Serum or plasma creatinine m easurement (mass/volume)Ordered By: Barry Mathew on 09-29-2023 Creatinine [Mass/Vol] 1.03 mg/dL 0.70-1.[address] [facility] Comment on above: The validity of the calculated GFR & GFRAA in patients over 70 years has not been determined. Clinical correlation is essential. Serum or plasma urea nitroge n measurement (mass/volume)Ordered By: Barry Mathew on 09-29-2023 Urea nitrogen [Mass/Vol] 17 mg/dL 7-18 [facility] Thin prep Papanicolaou smear with manual screeningOrdered By: Barry Mathew on 09-29-2023 Thin prep Papanicolaou smear with manual screening 9 U/L 15-37 [facility] Thin prep Papanicolaou smear with manual screening 4 5-15 [facility] Absolute lymphocyte countOrd ered By: Ar Calle on 07-29-2023 Lymphocytes Auto (Unsp spec) [#/Vol] 1.27 10*3/uL 0.83-4.51 [facility] Basophil percentageOrdered B y: Ar Calle on 07-29-2023 Basophils/100 WBC (Bld) 0.7 % 0-1 [facility] Chloride [Moles/Vol] 100 mmol/L 98-107 [facility] Eosinophils/100 WBC (Bld) 2.4 % 0-5 [facility] Glucose [Mass/Vol] 408 mg/dL 74-106 [facility] Comment on above: Glucose result great er than or equal to 200 mg/dLsuggests DIABETES MELLITUS per A.D.A. criteria. Neutrophils (Bld) [#/Vol] 6.2 10*3/uL 2.0-7.7 [facility] Neutrophils/100 WBC (Bld) 74.4 % 47-70 [facility] Potassium [Moles/Vol] 4.0 mmol/L 3.5-5.[address] [facility] Sodium [Moles/Vol] 135 mmol/L 136-145 [facility] WBC (Bld) [#/Vol] 8.3 10*3/uL 4.4-11.0 [facility] Blood erythrocytes count (nu mber/volume)Ordered By: Ar Calle on 07-29-2023 RBC (Bld) [#/Vol] 4.62 10*6/uL 4.6-6.2 [facility] Blood hemoglobin measurement (mass/volume)Ordered By: Ar Calle on 07-29-2023 Hemoglobin (Bld) [Mass/Vol] 12.9 g/dL 13.0-16.5 [facility] Blood lymphocytes/100 leukoc ytesOrdered By: Ar Calle on 07-29-2023 Lymphocytes/100 WBC (Bld) 15.2 % 19-41 [facility] Blood monocytes/100 leukocyt esOrdered By: Arsusan Calle on 07-29-2023 Monocytes/100 WBC (Bld) 6.7 % 0-10 [facility] Blood platelet mean volumeOr dered By: Ar Calle on 07-29-2023 Platelet mean volume (Bld) [Entitic vol] 9.5 fL 6.2-12.0 [facility] Determination of erythrocyte mean corpuscular volume (MCV)Ordered By: Ar Calle on 07-29-2023 MCV (RBC) [Entitic vol] 81.8 fL 80-94 [facility] Glucose Glucometer (BldC) [M ass/Vol]Ordered By: Ar Calle on 07-29-2023 Glucose [Mass/Vol] 400 mg/dL 74-106 [facility] Comment on above: MANAGEMENT OF PATIEN T CARE PER NURSING PROTOCOL Hematocrit Auto (Bld) [Volum e fraction]Ordered By: Ar Calle on 07-29-2023 Hematocrit (Bld) [Volume fraction] 37.8 % 40-54 [facility] - Chemistry and C hemistry - challengeOrdered By: [facility] CO2 [Moles/Vol] 30.0 mmol/L 21.0-32.0 [facility] Urea nitrogen/Creatinine [Mass ratio] 11.1 mg/mg 10-20 [facility] - Hematology and Cell countsOrdered By: Ar Calle on 07-29-2023 Erythrocyte distribution width (RBC) [Entitic vol] 39.1 fL 35.1-43.9 [facility] Erythrocyte distribution width (RBC) [Ratio] 13.3 % 11.6-14.6 [facility] Immature granulocytes/100 WBC (Bld) 0.600 % 0.0-0.9 [facility] Comment on above: IG% - Immature Granu locytes (promyelocytes, myelocytes and metamyelocytes) > 1% indicates that a LEFT SHIFT is Present. MCH (RBC) [Entitic mass] 27.9 pg 27.0-32.0 [facility] Nucleated RBC/100 WBC (Bld) [Ratio] 0 % 0-5 [facility] MCHC Auto (RBC) [Mass/Vol]Or dered By: Arsusan Calle on 07-29-2023 MCHC (RBC) [Mass/Vol] 34.1 g/dL 32-[address] [facility] No Panel InformationOrdered By: Arsusan Calle on 07-29-2023 Estimated Creatinine Clearance Calc 75.63 ml/min [facility] Estimated GFR (MDRD) Amer 74 mL/min >60 [facility] Comment on above: GFR Calc Estimated GFR (MDRD) Non-Af Amer 61 mL/min >60 [facility] Comment on above: Non- GFR Calc Troponin I High Sensitivity 4 pg/mL 3.0-78.0 [facility] Comment on above: Please Note: New Kira t Units and Gender Specific Reference Ranges. For more information see Policy Stat Procedure Sprakers High Sensitivity Troponin (TNIH) and attachments. Platelets bldOrdered By: Ar Calle on 07-29-2023 Platelets (Bld) [#/Vol] 208 10*3/uL 150-450 [facility] Serum or plasma calcium yayo urement (mass/volume)Ordered By: Arsusan Calle on 07-29-2023 Calcium [Mass/Vol] 8.5 mg/dL 8.5-10.1 [facility] Serum or plasma creatinine m easurement (mass/volume)Ordered By: Ar Calle on 07-29-2023 Creatinine [Mass/Vol] 1.26 mg/dL 0.70-1.[address] [facility] Comment on above: The validity of the calculated GFR & GFRAA in patients over 70 years has not been determined. Clinical correlation is essential. Serum or plasma urea nitroge n measurement (mass/volume)Ordered By: Arsusan Calle on 07-29-2023 Urea nitrogen [Mass/Vol] 14 mg/dL 7-18 [facility] Thin prep Papanicolaou smear with manual screeningOrdered By: Ar Calle on 07-29-2023 Thin prep Papanicolaou smear with manual screening 5 5-15 [facility] Absolute lymphocyte countOrd ered By: Dr. Castillo on 03-07-2023 Lymphocytes Auto (Unsp spec) [#/Vol] 1.61 10*3/uL 0.83-4.51 [facility] Basophil percentageOrdered B y: Dr. Castillo on 03-07-2023 Basophils/100 WBC (Bld) 0.5 % 0-1 [facility] Bilirubin [Mass/Vol] 0.60 mg/dL 0.20-1.00 [facility] Comment on above: For patients on eltr ombopag therapy, use of Dimension [place]rak[place] TBIL is not recommended. Chloride [Moles/Vol] 104 mmol/L 98-107 [facility] Eosinophils/100 WBC (Bld) 3.1 % 0-5 [facility] Glucose [Mass/Vol] 347 mg/dL 74-106 [facility] Comment on above: Glucose result great er than or equal to 200 mg/dLsuggests DIABETES MELLITUS per A.D.A. criteria. Neutrophils (Bld) [#/Vol] 5.0 10*3/uL 2.0-7.7 [facility] Neutrophils/100 WBC (Bld) 67.8 % 47-70 [facility] Potassium [Moles/Vol] 3.8 mmol/L 3.5-5.[address] [facility] Protein [Mass/Vol] 7.3 g/dL 6.4-8.2 [facility] Sodium [Moles/Vol] 139 mmol/L 136-145 [facility] WBC (Bld) [#/Vol] 7.4 10*3/uL 4.4-11.0 [facility] Blood erythrocytes count (nu mber/volume)Ordered By: Dr. Castillo on 03-07-2023 RBC (Bld) [#/Vol] 5.02 10*6/uL 4.6-6.2 [facility] Blood hemoglobin measurement (mass/volume)Ordered By: Dr. Castillo on 03-07-2023 Hemoglobin (Bld) [Mass/Vol] 14.3 g/dL 13.0-16.5 [facility] Blood lymphocytes/100 leukoc ytesOrdered By: Dr. Castillo on 03-07-2023 Lymphocytes/100 WBC (Bld) 21.8 % 19-41 [facility] Blood monocytes/100 leukocyt esOrdered By: Dr. Castillo on 03-07-2023 Monocytes/100 WBC (Bld) 6.4 % 0-10 [facility] Blood platelet mean volumeOr dered By: Dr. Castillo on 03-07-2023 Platelet mean volume (Bld) [Entitic vol] 9.5 fL 6.2-12.0 [facility] Determination of erythrocyte mean corpuscular volume (MCV)Ordered By: Dr. Castillo on 03-07-2023 MCV (RBC) [Entitic vol] 83.3 fL 80-94 [facility] Direct bilirubinOrdered By: Dr. Castillo on 03-07-2023 Bilirubin.direct [Mass/Vol] 0.12 mg/dL 0.00-0.30 [facility] Glucose Glucometer (BldC) [M ass/Vol]Ordered By: Dr. Castillo on 03-07-2023 Glucose [Mass/Vol] 134 mg/dL 74-106 [facility] Comment on above: MANAGEMENT OF PATIEN T CARE PER NURSING PROTOCOL Hematocrit Auto (Bld) [Volum e fraction]Ordered By: Dr. Castillo on 03-07-2023 Hematocrit (Bld) [Volume fraction] 41.8 % 40-54 [facility] - Chemistry and C hemistry - challengeOrdered By: Dr. Castillo on 03-07-2023 ALP [Catalytic activity/Vol] 67 U/L 45-117 [facility] ALT [Catalytic activity/Vol] 16 U/L 16-61 [facility] CO2 [Moles/Vol] 27.0 mmol/L 21.0-32.0 [facility] Globulin (S) [Mass/Vol] 3.8 g/dL 2.2-4.2 [facility] Lipase [Catalytic activity/Vol] 12 U/L 13-75 [facility] Comment on above: Please note:LIPASE r evised reference range effective 23. New Lipase methodology. Expected to produce lower values than the previous assay method. NEW Reference Range: 13 - 75 U/L Urea nitrogen/Creatinine [Mass ratio] 12.5 mg/mg 10-20 [facility] - Hematology and Cell countsOrdered By: Dr. Castillo on 03-07-2023 Erythrocyte distribution width (RBC) [Entitic vol] 40.3 fL 35.1-43.9 [facility] Erythrocyte distribution width (RBC) [Ratio] 13.3 % 11.6-14.6 [facility] Immature granulocytes/100 WBC (Bld) 0.400 % 0.0-0.9 [facility] Comment on above: IG% - Immature Granu locytes (promyelocytes, myelocytes and metamyelocytes) > 1% indicates that a LEFT SHIFT is Present. MCH (RBC) [Entitic mass] 28.5 pg 27.0-32.0 [facility] Nucleated RBC/100 WBC (Bld) [Ratio] 0 % 0-5 [facility] MCHC Auto (RBC) [Mass/Vol]Or dered By: Dr. Castillo on 05-08-2023 MCHC (RBC) [Mass/Vol] 34.2 g/dL 32-[address] [facility] No Panel InformationOrdered By: Dr. Castillo on 03-07-2023 Estimated Creatinine Clearance Calc 85.63 ml/min [facility] Estimated GFR (MDRD) Amer 93 mL/min >60 [facility] Comment on above: GFR Calc Estimated GFR (MDRD) Non-Af Amer 77 mL/min >60 [facility] Comment on above: Non- GFR Calc Ethyl Alcohol Level < 3.0 mg/dL [facility] Comment on above: The serum:whole bloo d ethanol ratio is approximately 1.14and varies slightly with hematocrit. Medical Alcohol reference interval and critical value innon-tolerant individuals; 50 - 100 Impairment 100 Intoxication 100 - 250 Severe Poisoning 250 - 400 Deep/possible fatal coma Platelets bldOrdered By: Dr. Castillo on 03-07-2023 Platelets (Bld) [#/Vol] 214 10*3/uL 150-450 [facility] Serum or plasma albumin yayo urement (mass/volume)Ordered By: Dr. Castillo on 03-07-2023 Albumin [Mass/Vol] 3.5 g/dL 3.2-5.0 [facility] Serum or plasma calcium yayo urement (mass/volume)Ordered By: Dr. Castillo on 03-07-2023 Calcium [Mass/Vol] 8.7 mg/dL 8.5-10.1 [facility] Serum or plasma creatinine m easurement (mass/volume)Ordered By: Dr. Castillo on 03-07-2023 Creatinine [Mass/Vol] 1.04 mg/dL 0.70-1.[address] [facility] Comment on above: The validity of the calculated GFR & GFRAA in patients over 70 years has not been determined. Clinical correlation is essential. Serum or plasma urea nitroge n measurement (mass/volume)Ordered By: Dr. Castillo on 03-07-2023 Urea nitrogen [Mass/Vol] 13 mg/dL 7-18 [facility] Thin prep Papanicolaou smear with manual screeningOrdered By: Dr. Castillo on 03-07-2023 Thin prep Papanicolaou smear with manual screening 13 U/L 15-37 [facility] Thin prep Papanicolaou smear with manual screening 8 5-15 [facility] Absolute lymphocyte countOrd ered By: Dr. Chavez on 01-18-2023 Lymphocytes Auto (Unsp spec) [#/Vol] 1.51 10*3/uL 0.83-4.51 [facility] Basophil percentageOrdered B y: Dr. Chavez on 01-18-2023 Basophils/100 WBC (Bld) 0.5 % 0-1 [facility] Bilirubin [Mass/Vol] 0.90 mg/dL 0.20-1.00 [facility] Comment on above: For patients on eltr ombopag therapy, use of Dimension [place] TBIL is not recommended. Chloride [Moles/Vol] 105 mmol/L 98-107 [facility] Eosinophils/100 WBC (Bld) 2.6 % 0-5 [facility] Glucose [Mass/Vol] 182 mg/dL 74-106 [facility] Comment on above: Fasting Glucose resu lt greater than or equal to 126 mg/dL suggests DIABETES MELLITUS per A.D.A. criteria. Neutrophils (Bld) [#/Vol] 6.0 10*3/uL 2.0-7.7 [facility] Neutrophils/100 WBC (Bld) 71.9 % 47-70 [facility] Potassium [Moles/Vol] 3.4 mmol/L 3.5-5.[address] [facility] Protein [Mass/Vol] 6.9 g/dL 6.4-8.2 [facility] Sodium [Moles/Vol] 139 mmol/L 136-145 [facility] WBC (Bld) [#/Vol] 8.4 10*3/uL 4.4-11.0 [facility] Blood erythrocytes count (nu mber/volume)Ordered By: Dr. Chavez on 01-18-2023 RBC (Bld) [#/Vol] 5.01 10*6/uL 4.6-6.2 [facility] Blood hemoglobin measurement (mass/volume)Ordered By: Dr. Chavez on 01-18-2023 Hemoglobin (Bld) [Mass/Vol] 14.4 g/dL 13.0-16.5 [facility] Blood lymphocytes/100 leukoc ytesOrdered By: Dr. Chavez on 01-18-2023 Lymphocytes/100 WBC (Bld) 18.0 % 19-41 [facility] Blood monocytes/100 leukocyt esOrdered By: Dr. Chavez on 01-18-2023 Monocytes/100 WBC (Bld) 6.8 % 0-10 [facility] Blood platelet mean volumeOr dered By: Dr. Chavez on 01-18-2023 Platelet mean volume (Bld) [Entitic vol] 8.9 fL 6.2-12.0 [facility] Clostridium difficile detect ion by polymerase chain reactionOrdered By: Bernard Chavez on 01-18-2023 C. difficile DNA IOANA+probe Ql (Unsp spec) [facility] Clostridium difficile detect ion by polymerase chain reactionOrdered By: Dr. Chavez on 01-18-2023 C. difficile DNA IOANA+probe Ql (Unsp spec) [facility] Determination of erythrocyte mean corpuscular volume (MCV)Ordered By: Dr. Chavez on 01-18-2023 MCV (RBC) [Entitic vol] 81.6 fL 80-94 [facility] Hematocrit Auto (Bld) [Volum e fraction]Ordered By: Dr. Chavez on 01-18-2023 Hematocrit (Bld) [Volume fraction] 40.9 % 40-54 [facility] - Chemistry and C hemistry - challengeOrdered By: Dr. Chavez on 01-18-2023 ALP [Catalytic activity/Vol] 64 U/L 45-117 [facility] ALT [Catalytic activity/Vol] 14 U/L 16-61 [facility] CO2 [Moles/Vol] 28.0 mmol/L 21.0-32.0 [facility] Globulin (S) [Mass/Vol] 3.2 g/dL 2.2-4.2 [facility] Urea nitrogen/Creatinine [Mass ratio] 11.7 mg/mg 10-20 [facility] - Hematology and Cell countsOrdered By: Dr. Chavez on 01-18-2023 Erythrocyte distribution width (RBC) [Entitic vol] 39.6 fL 35.1-43.9 [facility] Erythrocyte distribution width (RBC) [Ratio] 13.4 % 11.6-14.6 [facility] Immature granulocytes/100 WBC (Bld) 0.200 % 0.0-0.9 [facility] Comment on above: IG% - Immature Granu locytes (promyelocytes, myelocytes and metamyelocytes) > 1% indicates that a LEFT SHIFT is Present. MCH (RBC) [Entitic mass] 28.7 pg 27.0-32.0 [facility] Nucleated RBC/100 WBC (Bld) [Ratio] 0 % 0-5 [facility] MCHC Auto (RBC) [Mass/Vol]Or dered By: Dr. Chavez on 01-18-2023 MCHC (RBC) [Mass/Vol] 35.2 g/dL 32-[address] [facility] No Panel InformationOrdered By: Dr. Chavez on 01-18-2023 Estimated Creatinine Clearance Calc 102.69 ml/min [facility] Estimated GFR (MDRD) Amer 105 mL/min >60 [facility] Comment on above: GFR Calc Estimated GFR (MDRD) Non-Af Amer 86 mL/min >60 [facility] Comment on above: Non- GFR Calc Platelets bldOrdered By: Dr. Chavez on 01-18-2023 Platelets (Bld) [#/Vol] 199 10*3/uL 150-450 [facility] Serum or plasma albumin yayo urement (mass/volume)Ordered By: Dr. Chavez on 01-18-2023 Albumin [Mass/Vol] 3.7 g/dL 3.2-5.0 [facility] Serum or plasma albumin/glob ulin mass ratioOrdered By: Dr. Chavez on 01-18-2023 Albumin/Globulin [Mass ratio] 1.2 {ratio} 0.9-2.4 [facility] Serum or plasma calcium yayo urement (mass/volume)Ordered By: Dr. Chavez on 01-18-2023 Calcium [Mass/Vol] 8.3 mg/dL 8.5-10.1 [facility] Serum or plasma creatinine m easurement (mass/volume)Ordered By: Dr. Chavez on 01-18-2023 Creatinine [Mass/Vol] 0.94 mg/dL 0.70-1.[address] [facility] Comment on above: The validity of the calculated GFR & GFRAA in patients over 70 years has not been determined. Clinical correlation is essential. Serum or plasma urea nitroge n measurement (mass/volume)Ordered By: Dr. Chavez on 01-18-2023 Urea nitrogen [Mass/Vol] 11 mg/dL 7-18 [facility] Stool lactoferrin detection by immunoassayOrdered By: Bernard Chavez on 01-18-2023 Lactoferrin IA Ql (Stl) [facility] Stool lactoferrin detection by immunoassayOrdered By: Dr. Chavez on 01-18-2023 Lactoferrin IA Ql (Stl) [facility] Thin prep Papanicolaou smear with manual screeningOrdered By: Dr. Chavez on 01-18-2023 Thin prep Papanicolaou smear with manual screening 10 U/L 15- [facility] Thin prep Papanicolaou smear with manual screening 6 - [facility] - Chemistry and C hemistry - challengeOrdered By: Dr. Chavez on 12-15-2022 Free T4 [Mass/Vol] 0.76 ng/dL 0.76-1.46 [facility] No Panel InformationOrdered By: Dr. Chavez on 12-15-2022 Thyroid Stimulating Hormone (TSH) 9.17 uIU/mL 0.358-3.74 [facility] Absolute lymphocyte countOrd ered By: Dr. Wu on 12-11-2022 Lymphocytes Auto (Unsp spec) [#/Vol] 1.53 10*3/uL 0.83-4.51 [facility] Basophil percentageOrdered B y: Dr. Wu on 12-11-2022 Basophil percentage 0 SEEN /hpf 0-5 [facility] Basophils/100 WBC (Bld) 0.6 % 0-1 [facility] Bilirubin [Mass/Vol] 0.60 mg/dL 0.20-1.00 [facility] Comment on above: For patients on eltr ombopag therapy, use of Dimension [place] TBIL is not recommended. Chloride [Moles/Vol] 104 mmol/L 98-107 [facility] Eosinophils/100 WBC (Bld) 3.4 % 0-5 [facility] Glucose [Mass/Vol] 337 mg/dL 74-106 [facility] Comment on above: Glucose result great er than or equal to 200 mg/dLsuggests DIABETES MELLITUS per A.D.A. criteria. Neutrophils (Bld) [#/Vol] 4.6 10*3/uL 2.0-7.7 [facility] Neutrophils/100 WBC (Bld) 67.1 % 47-70 [facility] Potassium [Moles/Vol] 3.4 mmol/L 3.5-5.[address] [facility] Protein [Mass/Vol] 6.7 g/dL 6.4-8.2 [facility] Sodium [Moles/Vol] 139 mmol/L 136-145 [facility] WBC (Bld) [#/Vol] 6.8 10*3/uL 4.4-11.0 [facility] Bilirubin Test strip Ql (U)O rdered By: Dr. Wu on 12-11-2022 Bilirubin Ql (U) Negative Negative [facility] Blood erythrocytes count (nu mber/volume)Ordered By: Dr. Wu on 12-11-2022 RBC (Bld) [#/Vol] 5.09 10*6/uL 4.6-6.2 [facility] Blood hemoglobin measurement (mass/volume)Ordered By: Dr. Wu on 12-11-2022 Hemoglobin (Bld) [Mass/Vol] 14.4 g/dL 13.0-16.5 [facility] Blood lymphocytes/100 leukoc ytesOrdered By: Dr. Wu on 12-11-2022 Lymphocytes/100 WBC (Bld) 22.4 % 19-41 [facility] Blood monocytes/100 leukocyt esOrdered By: Dr. Wu on 12-11-2022 Monocytes/100 WBC (Bld) 6.1 % 0-10 [facility] Blood platelet mean volumeOr dered By: Dr. Wu on 12-11-2022 Platelet mean volume (Bld) [Entitic vol] 9.5 fL 6.2-12.0 [facility] Determination of erythrocyte mean corpuscular volume (MCV)Ordered By: Dr. Wu on 12-11-2022 MCV (RBC) [Entitic vol] 82.3 fL 80-94 [facility] Glucose Glucometer (BldC) [M ass/Vol]Ordered By: Dr. Wu on 12-11-2022 Glucose [Mass/Vol] 272 mg/dL 74-106 [facility] Comment on above: MANAGEMENT OF PATIEN T CARE PER NURSING PROTOCOL Hematocrit Auto (Bld) [Volum e fraction]Ordered By: Dr. Wu on 12-11-2022 Hematocrit (Bld) [Volume fraction] 41.9 % 40-54 [facility] Influenza virus A and B and SARS-CoV-2 (COVID-19) Ag panel - Upper respiratory specimOrdered By: Dr. Wu on 12-11-2022 SARS-CoV-2 (COVID-19) RNA IOANA+probe Ql (Resp) [facility] Ketones Test strip Ql (U)Ord ered By: Dr. Wu on 12-11-2022 Ketones Ql (U) 5 mg/dl Negative [facility] - Chemistry and C hemistry - challengeOrdered By: Dr. Wu on 12-11-2022 ALP [Catalytic activity/Vol] 72 U/L 45-117 [facility] ALT [Catalytic activity/Vol] 12 U/L 16-61 [facility] CO2 [Moles/Vol] 28.0 mmol/L 21.0-32.0 [facility] Globulin (S) [Mass/Vol] 3.2 g/dL 2.2-4.2 [facility] Urea nitrogen/Creatinine [Mass ratio] 8.6 mg/mg 10-20 [facility] - Drug toxicology Ordered By: Dr. Wu on 12-11-2022 Amphetamines Ql (U) Negative <1000 ng/mL [facility] Benzodiazepines Ql (U) Negative < 200 ng/mL [facility] Cannabinoids Screen Ql (U) Negative < 50 ng/mL [facility] Cocaine Ql (U) Negative < 300 ng/mL [facility] Opiates Ql (U) Negative < 300 ng/mL [facility] - Hematology and Cell countsOrdered By: Dr. Wu on 12-11-2022 Erythrocyte distribution width (RBC) [Entitic vol] 38.8 fL 35.1-43.9 [facility] Erythrocyte distribution width (RBC) [Ratio] 13.2 % 11.6-14.6 [facility] Immature granulocytes/100 WBC (Bld) 0.400 % 0.0-0.9 [facility] Comment on above: IG% - Immature Granu locytes (promyelocytes, myelocytes and metamyelocytes) > 1% indicates that a LEFT SHIFT is Present. MCH (RBC) [Entitic mass] 28.3 pg 27.0-32.0 [facility] Nucleated RBC/100 WBC (Bld) [Ratio] 0 % 0-5 [facility] MCHC Auto (RBC) [Mass/Vol]Or dered By: Dr. Wu on 12-11-2022 MCHC (RBC) [Mass/Vol] 34.4 g/dL 32-[address] [facility] Mucus LM Ql (Urine sed)Order ed By: Dr. Wu on 12-11-2022 Mucus Ql (Urine sed) RARE /hpf [facility] Nitrite Test strip Ql (U)Ord ered By: Dr. Wu on 12-11-2022 Nitrite Ql (U) Negative Negative [facility] No Panel InformationOrdered By: Dr. Wu on 12-11-2022 MDMA (Ecstasy) Screen Negative < 500 ng/mL [facility] Urine Barbiturates Screen Negative < 200 ng/mL [facility] Urine Drug Screen Comment [facility] Comment on above: CONFIRMATORY TESTING FOR [...] Methadone Screen Negative < 300 ng/mL [facility] Estimated Creatinine Clearance Calc 103.79 ml/min [facility] Estimated GFR (MDRD) Amer 105 mL/min >60 [facility] Comment on above: GFR Calc Estimated GFR (MDRD) Non-Af Amer 87 mL/min >60 [facility] Comment on above: Non- GFR Calc Ethyl Alcohol Level < 3.0 mg/dL [facility] Comment on above: The serum:whole bloo d ethanol ratio is approximately 1.14and varies slightly with hematocrit. Medical Alcohol reference interval and critical value innon-tolerant individuals; 50 - 100 Impairment 100 Intoxication 100 - 250 Severe Poisoning 250 - 400 Deep/possible fatal coma Troponin I High Sensitivity 6 pg/mL 3.0-78.0 [facility] Comment on above: Please Note: New Kira t Units and Gender Specific Reference Ranges. For more information see Policy Stat Procedure Sprakers High Sensitivity Troponin (TNIH) and attachments. Platelets bldOrdered By: Dr. Wu on 12-11-2022 Platelets (Bld) [#/Vol] 202 10*3/uL 150-450 [facility] Protein Test strip Ql (U)Ord ered By: Dr. Wu on 12-11-2022 Protein Ql (U) 15 mg/dl Negative [facility] Serum or plasma albumin yayo urement (mass/volume)Ordered By: Dr. Wu on 12-11-2022 Albumin [Mass/Vol] 3.5 g/dL 3.2-5.0 [facility] Serum or plasma albumin/glob ulin mass ratioOrdered By: Dr. Wu on 12-11-2022 Albumin/Globulin [Mass ratio] 1.1 {ratio} 0.9-2.4 [facility] Serum or plasma calcium yayo urement (mass/volume)Ordered By: Dr. Wu on 12-11-2022 Calcium [Mass/Vol] 8.6 mg/dL 8.5-10.1 [facility] Serum or plasma creatinine m easurement (mass/volume)Ordered By: Dr. Wu on 12-11-2022 Creatinine [Mass/Vol] 0.93 mg/dL 0.70-1.[address] [facility] Comment on above: The validity of the calculated GFR & GFRAA in patients over 70 years has not been determined. Clinical correlation is essential. Serum or plasma urea nitroge n measurement (mass/volume)Ordered By: Dr. Wu on 12-11-2022 Urea nitrogen [Mass/Vol] 8 mg/dL 7-18 [facility] Squamous epithelial cells de tection in urine sediment by light microscopyOrdered By: Dr. Wu on 12-11-2022 Epithelial cells.squamous LM Ql (Urine sed) 0 SEEN /hpf 0-5 [facility] Thin prep Papanicolaou smear with manual screeningOrdered By: Dr. Wu on 12-11-2022 Thin prep Papanicolaou smear with manual screening 5 U/L 15-37 [facility] Thin prep Papanicolaou smear with manual screening 7 5-15 [facility] Urine blood detectionOrdered By: Dr. Wu on 12-11-2022 RBC Ql (U) Negative Negative [facility] RBC Ql (U) 0 SEEN /hpf 0-5 [facility] Urine clarityOrdered By: Dr. Wu on 12-11-2022 Clarity (U) Clear Clear [facility] Urine color determinationOrd ered By: Dr. Wu on 12-11-2022 Color (U) Yellow Yellow [facility] Urine glucose detectionOrder ed By: Dr. Wu on 12-11-2022 Glucose Ql (U) 1000 mg/dl Normal [facility] Urine leukocyte esterase det ection by dipstickOrdered By: Dr. Wu on 12-11-2022 Leukocyte esterase Test strip Ql (U) Negative Negative [facility] Urine pHOrdered By: Dr. Humza ya on 12-11-2022 pH (U) 6.0 [pH] 5.0 - 8.0 [facility] Urine phencyclidine (PCP) de tectionOrdered By: Dr. Wu on 12-11-2022 Phencyclidine Ql (U) Negative < 25 ng/mL [facility] Urine sediment bacteria coun t by microscopy (number/high power field)Ordered By: Dr. Wu on 12-11-2022 Bacteria LM.HPF (Urine sed) [#/Area] 0 /[HPF] None Seen [facility] Urine specific gravity measu rementOrdered By: Dr. Wu on 12-11-2022 Specific gravity (U) [Rel density] 1.015 1.002-1.030 [facility] Urobilinogen Auto test strip Ql (U)Ordered By: Dr. Wu on 12-11-2022 Urobilinogen Ql (U) Normal mg/dl Normal [facility] Absolute lymphocyte countOrd ered By: Dr. Castillo on 12-10-2022 Lymphocytes Auto (Unsp spec) [#/Vol] 1.79 10*3/uL 0.83-4.51 [facility] Basophil percentageOrdered B y: Dr. Castillo on 12-10-2022 Basophil percentage 0 SEEN /hpf 0-5 [facility] Basophils/100 WBC (Bld) 0.5 % 0-1 [facility] Chloride [Moles/Vol] 106 mmol/L 98-107 [facility] Eosinophils/100 WBC (Bld) 3.3 % 0-5 [facility] Glucose [Mass/Vol] 250 mg/dL 74-106 [facility] Comment on above: Glucose result great er than or equal to 200 mg/dLsuggests DIABETES MELLITUS per A.D.A. criteria. Neutrophils (Bld) [#/Vol] 5.0 10*3/uL 2.0-7.7 [facility] Neutrophils/100 WBC (Bld) 64.8 % 47-70 [facility] Potassium [Moles/Vol] 3.7 mmol/L 3.5-5.[address] [facility] Sodium [Moles/Vol] 141 mmol/L 136-145 [facility] WBC (Bld) [#/Vol] 7.7 10*3/uL 4.4-11.0 [facility] Bilirubin Test strip Ql (U)O rdered By: Dr. Castillo on 12-10-2022 Bilirubin Ql (U) Negative Negative [facility] Blood erythrocytes count (nu mber/volume)Ordered By: Dr. Castillo on 12-10-2022 RBC (Bld) [#/Vol] 5.31 10*6/uL 4.6-6.2 [facility] Blood hemoglobin measurement (mass/volume)Ordered By: Dr. Castillo on 12-10-2022 Hemoglobin (Bld) [Mass/Vol] 15.1 g/dL 13.0-16.5 [facility] Blood lymphocytes/100 leukoc ytesOrdered By: Dr. Castillo on 12-10-2022 Lymphocytes/100 WBC (Bld) 23.4 % 19-41 [facility] Blood monocytes/100 leukocyt esOrdered By: Dr. Castillo on 12-10-2022 Monocytes/100 WBC (Bld) 7.3 % 0-10 [facility] Blood platelet mean volumeOr dered By: Dr. Castillo on 12-10-2022 Platelet mean volume (Bld) [Entitic vol] 9.3 fL 6.2-12.0 [facility] Determination of erythrocyte mean corpuscular volume (MCV)Ordered By: Dr. Castillo on 12-10-2022 MCV (RBC) [Entitic vol] 81.7 fL 80-94 [facility] Glucose Glucometer (BldC) [M ass/Vol]Ordered By: Dr. Castillo on 12-10-2022 Glucose [Mass/Vol] 261 mg/dL 74-106 [facility] Comment on above: MANAGEMENT OF PATIEN T CARE PER NURSING PROTOCOL Hematocrit Auto (Bld) [Volum e fraction]Ordered By: Dr. Castillo on 12-10-2022 Hematocrit (Bld) [Volume fraction] 43.4 % 40-54 [facility] Ketones Test strip Ql (U)Ord ered By: Dr. Castillo on 12-10-2022 Ketones Ql (U) Negative Negative [facility] - Chemistry and C hemistry - challengeOrdered By: Dr. Castillo on 12-10-2022 CO2 [Moles/Vol] 30.0 mmol/L 21.0-32.0 [facility] Urea nitrogen/Creatinine [Mass ratio] 9.8 mg/mg 10-20 [facility] - Hematology and Cell countsOrdered By: Dr. Castillo on 12-10-2022 Erythrocyte distribution width (RBC) [Entitic vol] 39.1 fL 35.1-43.9 [facility] Erythrocyte distribution width (RBC) [Ratio] 13.3 % 11.6-14.6 [facility] Immature granulocytes/100 WBC (Bld) 0.700 % 0.0-0.9 [facility] Comment on above: IG% - Immature Granu locytes (promyelocytes, myelocytes and metamyelocytes) > 1% indicates that a LEFT SHIFT is Present. MCH (RBC) [Entitic mass] 28.4 pg 27.0-32.0 [facility] Nucleated RBC/100 WBC (Bld) [Ratio] 0 % 0-5 [facility] MCHC Auto (RBC) [Mass/Vol]Or dered By: Dr. Castillo on 12-10-2022 MCHC (RBC) [Mass/Vol] 34.8 g/dL 32-[address] [facility] Mucus LM Ql (Urine sed)Order ed By: Dr. Castillo on 12-10-2022 Mucus Ql (Urine sed) 0 SEEN /hpf [facility] Nitrite Test strip Ql (U)Ord ered By: Dr. Castillo on 12-10-2022 Nitrite Ql (U) Negative Negative [facility] No Panel InformationOrdered By: Dr. Castillo on 12-10-2022 Estimated Creatinine Clearance Calc 94.63 ml/min [facility] Estimated GFR (MDRD) Amer 95 mL/min >60 [facility] Comment on above: GFR Calc Estimated GFR (MDRD) Non-Af Amer 79 mL/min >60 [facility] Comment on above: Non- GFR Calc Platelets bldOrdered By: Dr. Castillo on 12-10-2022 Platelets (Bld) [#/Vol] 251 10*3/uL 150-450 [facility] Protein Test strip Ql (U)Ord ered By: Dr. Castillo on 12-10-2022 Protein Ql (U) 15 mg/dl Negative [facility] Serum or plasma calcium yayo urement (mass/volume)Ordered By: Dr. Castillo on 12-10-2022 Calcium [Mass/Vol] 9.3 mg/dL 8.5-10.1 [facility] Serum or plasma creatinine m easurement (mass/volume)Ordered By: Dr. Castillo on 12-10-2022 Creatinine [Mass/Vol] 1.02 mg/dL 0.70-1.[address] [facility] Comment on above: The validity of the calculated GFR & GFRAA in patients over 70 years has not been determined. Clinical correlation is essential. Serum or plasma urea nitroge n measurement (mass/volume)Ordered By: Dr. Castillo on 12-10-2022 Urea nitrogen [Mass/Vol] 10 mg/dL 7-18 [facility] Squamous epithelial cells de tection in urine sediment by light microscopyOrdered By: Dr. Castillo on 12-10-2022 Epithelial cells.squamous LM Ql (Urine sed) 0-5 SEEN /hpf 0-5 [facility] Thin prep Papanicolaou smear with manual screeningOrdered By: Dr. Castillo on 12-10-2022 Thin prep Papanicolaou smear with manual screening 5 5-15 [facility] Urine blood detectionOrdered By: Dr. Castillo on 12-10-2022 RBC Ql (U) Negative Negative [facility] RBC Ql (U) 0 SEEN /hpf 0-5 [facility] Urine clarityOrdered By: Dr. Castillo on 12-10-2022 Clarity (U) Sl. Cloudy Clear [facility] Urine color determinationOrd ered By: Dr. Castillo on 12-10-2022 Color (U) Yellow Yellow [facility] Urine glucose detectionOrder ed By: Dr. Castillo on 12-10-2022 Glucose Ql (U) 1000 mg/dl Normal [facility] Urine leukocyte esterase det ection by dipstickOrdered By: Dr. Castillo on 12-10-2022 Leukocyte esterase Test strip Ql (U) Negative Negative [facility] Urine pHOrdered By: Dr. Castillo o n 12-10-2022 pH (U) 6.0 [pH] 5.0 - 8.0 [facility] Urine sediment bacteria coun t by microscopy (number/high power field)Ordered By: Dr. Castillo on 12-10-2022 Bacteria LM.HPF (Urine sed) [#/Area] 0 /[HPF] None Seen [facility] Urine specific gravity measu rementOrdered By: Dr. Castillo on 12-10-2022 Specific gravity (U) [Rel density] 1.015 1.002-1.030 [facility] Urobilinogen Auto test strip Ql (U)Ordered By: Dr. Castillo on 12-10-2022 Urobilinogen Ql (U) Normal mg/dl Normal [facility] Basophil percentageOrdered B y: Dr. Calle on 11-25-2022 Chloride [Moles/Vol] 102 mmol/L 98-107 [facility] Glucose [Mass/Vol] 429 mg/dL 74-106 [facility] Comment on above: Glucose result great er than or equal to 200 mg/dLsuggests DIABETES MELLITUS per A.D.A. criteria. Potassium [Moles/Vol] 4.0 mmol/L 3.5-5.[address] [facility] Sodium [Moles/Vol] 136 mmol/L 136-145 [facility] Glucose Glucometer (BldC) [M ass/Vol]Ordered By: Dr. Calle on 11-25-2022 Glucose [Mass/Vol] 380 mg/dL 74-106 [facility] Comment on above: MANAGEMENT OF PATIEN T CARE PER NURSING PROTOCOL Laboratory - Chemistry and C hemistry - challengeOrdered By: Dr. Calle on 11-25-2022 CO2 [Moles/Vol] 28.0 mmol/L 21.0-32.0 [facility] Urea nitrogen/Creatinine [Mass ratio] 11.3 mg/mg 10-20 [facility] No Panel InformationOrdered By: Dr. Calle on 11-25-2022 Estimated Creatinine Clearance Calc 99.51 ml/min [facility] Estimated GFR (MDRD) Amer 101 mL/min >60 [facility] Comment on above: GFR Calc Estimated GFR (MDRD) Non-Af Amer 83 mL/min >60 [facility] Comment on above: Non- GFR Calc Serum or plasma calcium yayo urement (mass/volume)Ordered By: Dr. Calle on 11-25-2022 Calcium [Mass/Vol] 9.0 mg/dL 8.5-10.1 [facility] Serum or plasma creatinine m easurement (mass/volume)Ordered By: Dr. Calle on 11-25-2022 Creatinine [Mass/Vol] 0.97 mg/dL 0.70-1.[address] [facility] Comment on above: The validity of the calculated GFR & GFRAA in patients over 70 years has not been determined. Clinical correlation is essential. Serum or plasma urea nitroge n measurement (mass/volume)Ordered By: Dr. Calle on 11-25-2022 Urea nitrogen [Mass/Vol] 11 mg/dL 7-18 [facility] Thin prep Papanicolaou smear with manual screeningOrdered By: Dr. Calle on 11-25-2022 Thin prep Papanicolaou smear with manual screening 6 5-15 [facility] Influenza virus A and B and SARS-CoV-2 (COVID-19) Ag panel - Upper respiratory specimOrdered By: Johann Lemons on 10-30-2022 SARS-CoV-2 (COVID-19) RNA IOANA+probe Ql (Resp) [facility] Absolute lymphocyte countOrd ered By: ED PROVIDER on 10-29-2022 Lymphocytes Auto (Unsp spec) [#/Vol] 1.87 10*3/uL 0.83-4.51 [facility] Basophil percentageOrdered B y: ED PROVIDER on 10-29-2022 Basophils/100 WBC (Bld) 0.3 % 0-1 [facility] Chloride [Moles/Vol] 104 mmol/L 98-107 [facility] Eosinophils/100 WBC (Bld) 2.0 % 0-5 [facility] Glucose [Mass/Vol] 361 mg/dL 74-106 [facility] Comment on above: Glucose result great er than or equal to 200 mg/dLsuggests DIABETES MELLITUS per A.D.A. criteria. Neutrophils (Bld) [#/Vol] 8.6 10*3/uL 2.0-7.7 [facility] Neutrophils/100 WBC (Bld) 75.0 % 47-70 [facility] Potassium [Moles/Vol] 4.0 mmol/L 3.5-5.[address] [facility] Sodium [Moles/Vol] 136 mmol/L 136-145 [facility] WBC (Bld) [#/Vol] 11.5 10*3/uL 4.4-11.0 [facility] Blood erythrocytes count (nu mber/volume)Ordered By: ED PROVIDER on 10-29-2022 RBC (Bld) [#/Vol] 5.15 10*6/uL 4.6-6.2 [facility] Blood hemoglobin measurement (mass/volume)Ordered By: ED PROVIDER on 10-29-2022 Hemoglobin (Bld) [Mass/Vol] 14.8 g/dL 13.0-16.5 [facility] Blood lymphocytes/100 leukoc ytesOrdered By: ED PROVIDER on 10-29-2022 Lymphocytes/100 WBC (Bld) 16.2 % 19-41 [facility] Blood monocytes/100 leukocyt esOrdered By: ED PROVIDER on 10-29-2022 Monocytes/100 WBC (Bld) 6.2 % 0-10 [facility] Blood platelet mean volumeOr dered By: ED PROVIDER on 10-29-2022 Platelet mean volume (Bld) [Entitic vol] 9.5 fL 6.2-12.0 [facility] Determination of erythrocyte mean corpuscular volume (MCV)Ordered By: ED PROVIDER on 10-29-2022 MCV (RBC) [Entitic vol] 81.9 fL 80-94 [facility] Hematocrit Auto (Bld) [Volum e fraction]Ordered By: ED PROVIDER on 10-29-2022 Hematocrit (Bld) [Volume fraction] 42.2 % 40-54 [facility] Laboratory - Chemistry and C hemistry - challengeOrdered By: ED PROVIDER on 10-29-2022 CO2 [Moles/Vol] 26.0 mmol/L 21.0-32.0 [facility] Urea nitrogen/Creatinine [Mass ratio] 14.8 mg/mg 10-20 [facility] Laboratory - Chemistry and C hemistry - challengeOrdered By: Johann Lemons on 10-29-2022 Magnesium [Mass/Vol] 1.7 mg/dL 1.6-2.6 [facility] Laboratory - Hematology and Cell countsOrdered By: ED PROVIDER on 10-29-2022 Erythrocyte distribution width (RBC) [Entitic vol] 38.6 fL 35.1-43.9 [facility] Erythrocyte distribution width (RBC) [Ratio] 13.1 % 11.6-14.6 [facility] Immature granulocytes/100 WBC (Bld) 0.300 % 0.0-0.9 [facility] Comment on above: IG% - Immature Granu locytes (promyelocytes, myelocytes and metamyelocytes) > 1% indicates that a LEFT SHIFT is Present. MCH (RBC) [Entitic mass] 28.7 pg 27.0-32.0 [facility] Nucleated RBC/100 WBC (Bld) [Ratio] 0 % 0-5 [facility] MCHC Auto (RBC) [Mass/Vol]Or dered By: ED PROVIDER on 10-29-2022 MCHC (RBC) [Mass/Vol] 35.1 g/dL 32-[address] [facility] No Panel InformationOrdered By: ED PROVIDER on 10-29-2022 Estimated Creatinine Clearance Calc 83.93 ml/min [facility] Estimated GFR (MDRD) Amer 83 mL/min >60 [facility] Comment on above: GFR Calc Estimated GFR (MDRD) Non-Af Amer 68 mL/min >60 [facility] Comment on above: Non- GFR Calc Platelets bldOrdered By: ED PROVIDER on 10-29-2022 Platelets (Bld) [#/Vol] 224 10*3/uL 150-450 [facility] Serum or plasma calcium yayo urement (mass/volume)Ordered By: ED PROVIDER on 10-29-2022 Calcium [Mass/Vol] 8.9 mg/dL 8.5-10.1 [facility] Serum or plasma creatinine m easurement (mass/volume)Ordered By: ED PROVIDER on 10-29-2022 Creatinine [Mass/Vol] 1.15 mg/dL 0.70-1.[address] [facility] Comment on above: The validity of the calculated GFR & GFRAA in patients over 70 years has not been determined. Clinical correlation is essential. Serum or plasma urea nitroge n measurement (mass/volume)Ordered By: ED PROVIDER on 10-29-2022 Urea nitrogen [Mass/Vol] 17 mg/dL 7-18 [facility] Thin prep Papanicolaou smear with manual screeningOrdered By: ED PROVIDER on 10-29-2022 Thin prep Papanicolaou smear with manual screening 6 5-15 [facility] Absolute lymphocyte countOrd ered By: Dr. Wu on 09-18-2022 Lymphocytes Auto (Unsp spec) [#/Vol] 1.62 10*3/uL 0.83-4.51 [facility] Basophil percentageOrdered B y: Dr. Wu on 09-18-2022 Basophils/100 WBC (Bld) 0.5 % 0-1 [facility] Bilirubin [Mass/Vol] 0.50 mg/dL 0.20-1.00 [facility] Comment on above: For patients on eltr ombopag therapy, use of Dimension [employer]rak[employer] TBIL is not recommended. Chloride [Moles/Vol] 106 mmol/L 98-107 [facility] Eosinophils/100 WBC (Bld) 3.5 % 0-5 [facility] Glucose [Mass/Vol] 262 mg/dL 74-106 [facility] Comment on above: Glucose result great er than or equal to 200 mg/dLsuggests DIABETES MELLITUS per A.D.A. criteria. Neutrophils (Bld) [#/Vol] 5.4 10*3/uL 2.0-7.7 [facility] Neutrophils/100 WBC (Bld) 68.0 % 47-70 [facility] Potassium [Moles/Vol] 3.7 mmol/L 3.5-5.[address] [facility] Protein [Mass/Vol] 7.1 g/dL 6.4-8.2 [facility] Sodium [Moles/Vol] 137 mmol/L 136-145 [facility] WBC (Bld) [#/Vol] 7.9 10*3/uL 4.4-11.0 [facility] Blood erythrocytes count (nu mber/volume)Ordered By: Dr. Wu on 09-18-2022 RBC (Bld) [#/Vol] 4.87 10*6/uL 4.6-6.2 [facility] Blood hemoglobin measurement (mass/volume)Ordered By: Dr. Wu on 09-18-2022 Hemoglobin (Bld) [Mass/Vol] 14.6 g/dL 13.0-16.5 [facility] Blood lymphocytes/100 leukoc ytesOrdered By: Dr. Wu on 09-18-2022 Lymphocytes/100 WBC (Bld) 20.4 % 19-41 [facility] Blood monocytes/100 leukocyt esOrdered By: Dr. Wu on 09-18-2022 Monocytes/100 WBC (Bld) 7.2 % 0-10 [facility] Blood platelet mean volumeOr dered By: Dr. Wu on 09-18-2022 Platelet mean volume (Bld) [Entitic vol] 9.1 fL 6.2-12.0 [facility] Determination of erythrocyte mean corpuscular volume (MCV)Ordered By: Dr. Wu on 09-18-2022 MCV (RBC) [Entitic vol] 83.2 fL 80-94 [facility] Hematocrit Auto (Bld) [Volum e fraction]Ordered By: Dr. Wu on 09-18-2022 Hematocrit (Bld) [Volume fraction] 40.5 % 40-54 [facility] Laboratory - Chemistry and C hemistry - challengeOrdered By: Dr. Wu on 09-18-2022 ALP [Catalytic activity/Vol] 75 U/L 45-117 [facility] ALT [Catalytic activity/Vol] 16 U/L 16-61 [facility] CO2 [Moles/Vol] 24.0 mmol/L 21.0-32.0 [facility] Globulin (S) [Mass/Vol] 3.5 g/dL 2.2-4.2 [facility] Lipase [Catalytic activity/Vol] 64 U/L 73-393 [facility] Urea nitrogen/Creatinine [Mass ratio] 16.3 mg/mg 10-20 [facility] Laboratory - Hematology and Cell countsOrdered By: Dr. Wu on 09-18-2022 Erythrocyte distribution width (RBC) [Entitic vol] 39.2 fL 35.1-43.9 [facility] Erythrocyte distribution width (RBC) [Ratio] 13.1 % 11.6-14.6 [facility] Immature granulocytes/100 WBC (Bld) 0.400 % 0.0-0.9 [facility] Comment on above: IG% - Immature Granu locytes (promyelocytes, myelocytes and metamyelocytes) > 1% indicates that a LEFT SHIFT is Present. MCH (RBC) [Entitic mass] 30.0 pg 27.0-32.0 [facility] Nucleated RBC/100 WBC (Bld) [Ratio] 0 % 0-5 [facility] MCHC Auto (RBC) [Mass/Vol]Or dered By: Dr. Wu on 09-18-2022 MCHC (RBC) [Mass/Vol] 36.0 g/dL 32-[address] [facility] No Panel InformationOrdered By: Dr. Wu on 09-18-2022 Estimated Creatinine Clearance Calc 98.49 ml/min [facility] Estimated GFR (MDRD) Amer 100 mL/min >60 [facility] Comment on above: GFR Calc Estimated GFR (MDRD) Non-Af Amer 82 mL/min >60 [facility] Comment on above: Non- GFR Calc Ethyl Alcohol Level < 3.0 mg/dL [facility] Comment on above: The serum:whole bloo d ethanol ratio is approximately 1.14and varies slightly with hematocrit. Medical Alcohol reference interval and critical value innon-tolerant individuals; 50 - 100 Impairment 100 Intoxication 100 - 250 Severe Poisoning 250 - 400 Deep/possible fatal coma Platelets bldOrdered By: Dr. Wu on 09-18-2022 Platelets (Bld) [#/Vol] 188 10*3/uL 150-450 [facility] Serum or plasma albumin yayo urement (mass/volume)Ordered By: Dr. Wu on 09-18-2022 Albumin [Mass/Vol] 3.6 g/dL 3.2-5.0 [facility] Serum or plasma albumin/glob ulin mass ratioOrdered By: Dr. Wu on 09-18-2022 Albumin/Globulin [Mass ratio] 1.0 {ratio} 0.9-2.4 [facility] Serum or plasma calcium yayo urement (mass/volume)Ordered By: Dr. Wu on 09-18-2022 Calcium [Mass/Vol] 9.1 mg/dL 8.5-10.1 [facility] Serum or plasma creatinine m easurement (mass/volume)Ordered By: Dr. Wu on 09-18-2022 Creatinine [Mass/Vol] 0.98 mg/dL 0.70-1.[address] [facility] Comment on above: The validity of the calculated GFR & GFRAA in patients over 70 years has not been determined. Clinical correlation is essential. Serum or plasma urea nitroge n measurement (mass/volume)Ordered By: Dr. Wu on 09-18-2022 Urea nitrogen [Mass/Vol] 16 mg/dL 7-18 [facility] Thin prep Papanicolaou smear with manual screeningOrdered By: Dr. Wu on 09-18-2022 Thin prep Papanicolaou smear with manual screening 9 U/L 15-37 [facility] Thin prep Papanicolaou smear with manual screening 7 5-15 [facility] Absolute lymphocyte countOrd ered By: Dr. Mathew on 08-07-2022 Lymphocytes Auto (Unsp spec) [#/Vol] 1.92 10*3/uL 0.83-4.51 [facility] Basophil percentageOrdered B y: Dr. Mathew on 08-07-2022 Basophil percentage 0 SEEN /hpf 0-5 [facility] Basophils/100 WBC (Bld) 0.3 % 0-1 [facility] Bilirubin [Mass/Vol] 0.40 mg/dL 0.20-1.00 [facility] Comment on above: For patients on eltr ombopag therapy, use of Dimension [place] TBIL is not recommended. Chloride [Moles/Vol] 108 mmol/L 98-107 [facility] Eosinophils/100 WBC (Bld) 3.1 % 0-5 [facility] Glucose [Mass/Vol] 194 mg/dL 74-106 [facility] Comment on above: Fasting Glucose resu lt greater than or equal to 126 mg/dL suggests DIABETES MELLITUS per A.D.A. criteria. Neutrophils (Bld) [#/Vol] 6.2 10*3/uL 2.0-7.7 [facility] Neutrophils/100 WBC (Bld) 68.4 % 47-70 [facility] Potassium [Moles/Vol] 3.6 mmol/L 3.5-5.[address] [facility] Protein [Mass/Vol] 7.5 g/dL 6.4-8.2 [facility] Sodium [Moles/Vol] 142 mmol/L 136-145 [facility] WBC (Bld) [#/Vol] 9.1 10*3/uL 4.4-11.0 [facility] Bilirubin Test strip Ql (U)O rdered By: Dr. Mathew on 08-07-2022 Bilirubin Ql (U) Negative Negative [facility] Blood erythrocytes count (nu mber/volume)Ordered By: Dr. Mathew on 08-07-2022 RBC (Bld) [#/Vol] 5.01 10*6/uL 4.6-6.2 [facility] Blood hemoglobin measurement (mass/volume)Ordered By: Dr. Mathew on 08-07-2022 Hemoglobin (Bld) [Mass/Vol] 14.4 g/dL 13.0-16.5 [facility] Blood lymphocytes/100 leukoc ytesOrdered By: Dr. Mathew on 08-07-2022 Lymphocytes/100 WBC (Bld) 21.1 % 19-41 [facility] Blood monocytes/100 leukocyt esOrdered By: Dr. Mathwe on 08-07-2022 Monocytes/100 WBC (Bld) 6.7 % 0-10 [facility] Blood platelet mean volumeOr dered By: Dr. Mathew on 08-07-2022 Platelet mean volume (Bld) [Entitic vol] 9.5 fL 6.2-12.0 [facility] Determination of erythrocyte mean corpuscular volume (MCV)Ordered By: Dr. Mathew on 08-07-2022 MCV (RBC) [Entitic vol] 84.0 fL 80-94 [facility] Glucose Glucometer (BldC) [M ass/Vol]Ordered By: Dr. Mathew on 08-07-2022 Glucose [Mass/Vol] 193 mg/dL 74-106 [facility] Comment on above: MANAGEMENT OF PATIEN T CARE PER NURSING PROTOCOL Hematocrit Auto (Bld) [Volum e fraction]Ordered By: Dr. Mathew on 08-07-2022 Hematocrit (Bld) [Volume fraction] 42.1 % 40-54 [facility] Ketones Test strip Ql (U)Ord ered By: Dr. Mathew on 08-07-2022 Ketones Ql (U) Negative Negative [facility] Laboratory - Chemistry and C hemistry - challengeOrdered By: Dr. Mathew on 08-07-2022 ALP [Catalytic activity/Vol] 77 U/L 45-117 [facility] ALT [Catalytic activity/Vol] 16 U/L 16-61 [facility] CO2 [Moles/Vol] 28.0 mmol/L 21.0-32.0 [facility] Globulin (S) [Mass/Vol] 3.6 g/dL 2.2-4.2 [facility] Urea nitrogen/Creatinine [Mass ratio] 8.7 mg/mg 10-20 [facility] Laboratory - Hematology and Cell countsOrdered By: Dr. Mathew on 08-07-2022 Erythrocyte distribution width (RBC) [Entitic vol] 42.5 fL 35.1-43.9 [facility] Erythrocyte distribution width (RBC) [Ratio] 14.0 % 11.6-14.6 [facility] Immature granulocytes/100 WBC (Bld) 0.400 % 0.0-0.9 [facility] Comment on above: IG% - Immature Granu locytes (promyelocytes, myelocytes and metamyelocytes) > 1% indicates that a LEFT SHIFT is Present. MCH (RBC) [Entitic mass] 28.7 pg 27.0-32.0 [facility] Nucleated RBC/100 WBC (Bld) [Ratio] 0 % 0-5 [facility] MCHC Auto (RBC) [Mass/Vol]Or dered By: Dr. Mathew on 08-07-2022 MCHC (RBC) [Mass/Vol] 34.2 g/dL 32-[address] [facility] Mucus LM Ql (Urine sed)Order ed By: Dr. Mathew on 08-07-2022 Mucus Ql (Urine sed) 0 SEEN /hpf [facility] Nitrite Test strip Ql (U)Ord ered By: Dr. Mathew on 08-07-2022 Nitrite Ql (U) Negative Negative [facility] No Panel InformationOrdered By: Dr. Mathew on 08-07-2022 Estimated Creatinine Clearance Calc 104.92 ml/min [facility] Estimated GFR (MDRD) Amer 107 mL/min >60 [facility] Comment on above: GFR Calc Estimated GFR (MDRD) Non-Af Amer 89 mL/min >60 [facility] Comment on above: Non- GFR Calc Platelets bldOrdered By: Dr. Mathew on 08-07-2022 Platelets (Bld) [#/Vol] 227 10*3/uL 150-450 [facility] Protein Test strip Ql (U)Ord ered By: Dr. Mathew on 08-07-2022 Protein Ql (U) Negative Negative [facility] Serum or plasma albumin yayo urement (mass/volume)Ordered By: Dr. Mathew on 08-07-2022 Albumin [Mass/Vol] 3.9 g/dL 3.2-5.0 [facility] Serum or plasma albumin/glob ulin mass ratioOrdered By: Dr. Mathew on 08-07-2022 Albumin/Globulin [Mass ratio] 1.1 {ratio} 0.9-2.4 [facility] Serum or plasma calcium yayo urement (mass/volume)Ordered By: Dr. Mathew on 08-07-2022 Calcium [Mass/Vol] 9.1 mg/dL 8.5-10.1 [facility] Serum or plasma creatinine m easurement (mass/volume)Ordered By: Dr. Mathew on 08-07-2022 Creatinine [Mass/Vol] 0.92 mg/dL 0.70-1.[address] [facility] Comment on above: The validity of the calculated GFR & GFRAA in patients over 70 years has not been determined. Clinical correlation is essential. Serum or plasma urea nitroge n measurement (mass/volume)Ordered By: Dr. Mathew on 08-07-2022 Urea nitrogen [Mass/Vol] 8 mg/dL 7-18 [facility] Squamous epithelial cells de tection in urine sediment by light microscopyOrdered By: Dr. Mathew on 08-07-2022 Epithelial cells.squamous LM Ql (Urine sed) 0 SEEN /hpf 0-5 [facility] Thin prep Papanicolaou smear with manual screeningOrdered By: Dr. Mathew on 08-07-2022 Thin prep Papanicolaou smear with manual screening 7 U/L 15-37 [facility] Thin prep Papanicolaou smear with manual screening 6 5-15 [facility] Urine blood detectionOrdered By: Dr. Mathew on 08-07-2022 RBC Ql (U) Negative Negative [facility] RBC Ql (U) 0 SEEN /hpf 0-5 [facility] Urine clarityOrdered By: Dr. Mathew on 08-07-2022 Clarity (U) Clear Clear [facility] Urine color determinationOrd ered By: Dr. Mathew on 08-07-2022 Color (U) Straw Yellow [facility] Urine glucose detectionOrder ed By: Dr. Mathew on 08-07-2022 Glucose Ql (U) Normal mg/dl Normal [facility] Urine leukocyte esterase det ection by dipstickOrdered By: Dr. Mathew on 08-07-2022 Leukocyte esterase Test strip Ql (U) Negative Negative [facility] Urine pHOrdered By: Dr. Sandra aguirre on 08-07-2022 pH (U) 6.0 [pH] 5.0 - 8.0 [facility] Urine sediment bacteria coun t by microscopy (number/high power field)Ordered By: Dr. Mathew on 08-07-2022 Bacteria LM.HPF (Urine sed) [#/Area] 0 /[HPF] None Seen [facility] Urine specific gravity measu rementOrdered By: Dr. Mathew on 08-07-2022 Specific gravity (U) [Rel density] 1.010 1.002-1.030 [facility] Urobilinogen Auto test strip Ql (U)Ordered By: Dr. Mathew on 08-07-2022 Urobilinogen Ql (U) Normal mg/dl Normal [facility] Absolute lymphocyte counton 07-02-2022 Lymphocytes Auto (Unsp spec) [#/Vol] 1.81 10*3/uL 0.83-4.51 [facility] Work Phone: Basophil percentageon 2021 Basophils/100 WBC (Bld) 0.4 % 0-1 [facility] Work Phone: Chloride [Moles/Vol] 107 mmol/L 98-107 [facility] Work Phone: Eosinophils/100 WBC (Bld) 2.5 % 0-5 [facility] Work Phone: Glucose [Mass/Vol] 132 mg/dL 74-106 [facility] Work Phone: [phone] Comment on above: Fasting Glucose resu lt greater than or equal to 126 mg/dL suggests DIABETES MELLITUS per A.D.A. criteria. Neutrophils (Bld) [#/Vol] 4.9 10*3/uL 2.0-7.7 [facility] Work Phone: Neutrophils/100 WBC (Bld) 64.6 % 47-70 [facility] Work Phone: Potassium [Moles/Vol] 3.7 mmol/L 3.5-5.[address] [facility] Work Phone: Sodium [Moles/Vol] 142 mmol/L 136-145 [facility] Work Phone: WBC (Bld) [#/Vol] 7.5 10*3/uL 4.4-11.0 [facility] Work Phone: Basophil percentage 0 SEEN /hpf 0-5 [facility] Work Phone: Bilirubin Test strip Ql (U)o n 07-02-2022 Bilirubin Ql (U) Negative Negative [facility] Work Phone: Blood erythrocytes count (nu mber/volume)on 07-02-2022 RBC (Bld) [#/Vol] 5.07 10*6/uL 4.6-6.2 [facility] Work Phone: Blood hemoglobin measurement (mass/volume)on 07-02-2022 Hemoglobin (Bld) [Mass/Vol] 14.5 g/dL 13.0-16.5 [facility] Work Phone: Blood lymphocytes/100 leukoc yteson 07-02-2022 Lymphocytes/100 WBC (Bld) 24.1 % 19-41 [facility] Work Phone: Blood monocytes/100 leukocyt eson 07-02-2022 Monocytes/100 WBC (Bld) 8.1 % 0-10 [facility] Work Phone: Blood platelet mean volumeon 07-02-2022 Platelet mean volume (Bld) [Entitic vol] 9.1 fL 6.2-12.0 [facility] Work Phone: [phone] Determination of erythrocyte mean corpuscular volume (MCV)on 07-02-2022 MCV (RBC) [Entitic vol] 82.6 fL 80-94 [facility] Work Phone: [phone] Hematocrit Auto (Bld) [Volum e fraction]on 07-02-2022 Hematocrit (Bld) [Volume fraction] 41.9 % 40-54 [facility] Work Phone: [phone] Ketones Test strip Ql (U)on 07-02-2022 Ketones Ql (U) Negative Negative [facility] Work Phone: [phone] Laboratory - Chemistry and C hemistry - challengeon 07-02-2022 CO2 [Moles/Vol] 30.0 mmol/L 21.0-32.0 [facility] Work Phone: [phone] Urea nitrogen/Creatinine [Mass ratio] 16.1 mg/mg 10-20 [facility] Work Phone: [phone] Laboratory - Hematology and Cell countson 07-02-2022 Erythrocyte distribution width (RBC) [Entitic vol] 40.1 fL 35.1-43.9 [facility] Work Phone: [phone] Erythrocyte distribution width (RBC) [Ratio] 13.5 % 11.6-14.6 [facility] Work Phone: [phone] Immature granulocytes/100 WBC (Bld) 0.300 % 0.0-0.9 [facility] Work Phone: Comment on above: IG% - Immature Granu locytes (promyelocytes, myelocytes and metamyelocytes) > 1% indicates that a LEFT SHIFT is Present. MCH (RBC) [Entitic mass] 28.6 pg 27.0-32.0 [facility] Work Phone: Nucleated RBC/100 WBC (Bld) [Ratio] 0 % 0-5 [facility] Work Phone: MCHC Auto (RBC) [Mass/Vol]on 07-02-2022 MCHC (RBC) [Mass/Vol] 34.6 g/dL 32-[address] [facility] Work Phone: Mucus LM Ql (Urine sed)on Mucus Ql (Urine sed) 1+ /hpf [facility] Work Phone: Nitrite Test strip Ql (U)on 07-02-2022 Nitrite Ql (U) Negative Negative [facility] Work Phone: No Panel Informationon 07-02 Estimated Creatinine Clearance Calc 110.95 ml/min [facility] Work Phone: Estimated GFR (MDRD) Amer 114 mL/min >60 [facility] Work Phone: Comment on above: GFR Calc Estimated GFR (MDRD) Non-Af Amer 94 mL/min >60 [facility] Work Phone: Comment on above: Non- GFR Calc Platelets bldon 07-02-2022 Platelets (Bld) [#/Vol] 189 10*3/uL 150-450 [facility] Work Phone: Protein Test strip Ql (U)on 07-02-2022 Protein Ql (U) 15 mg/dl Negative [facility] Work Phone: Serum or plasma calcium yayo urement (mass/volume)on 07-02-2022 Calcium [Mass/Vol] 9.1 mg/dL 8.5-10.1 [facility] Work Phone: Serum or plasma creatinine m easurement (mass/volume)on 07-02-2022 Creatinine [Mass/Vol] 0.87 mg/dL 0.70-1.[address] [facility] Work Phone: Comment on above: The validity of the calculated GFR & GFRAA in patients over 70 years has not been determined. Clinical correlation is essential. Serum or plasma urea nitroge n measurement (mass/volume)on 07-02-2022 Urea nitrogen [Mass/Vol] 14 mg/dL 7-18 [facility] Work Phone: Squamous epithelial cells de tection in urine sediment by light microscopyon 07-02-2022 Epithelial cells.squamous LM Ql (Urine sed) 0-5 SEEN /hpf 0-5 [facility] Work Phone: Thin prep Papanicolaou smear with manual screeningon 07-02-2022 Thin prep Papanicolaou smear with manual screening 5 5-15 [facility] Work Phone: Urine blood detectionon RBC Ql (U) Negative Negative [facility] Work Phone: RBC Ql (U) 0 SEEN /hpf 0-5 [facility] Work Phone: Urine clarityon 07-02-2022 Clarity (U) Clear Clear [facility] Work Phone: Urine color determinationon 07-02-2022 Color (U) Yellow Yellow [facility] Work Phone: Urine glucose detectionon Glucose Ql (U) 100 mg/dl Normal [facility] Work Phone: Urine leukocyte esterase det ection by dipstickon 07-02-2022 Leukocyte esterase Test strip Ql (U) Negative Negative [facility] Work Phone: Urine pHon 07-02-2022 pH (U) 7.0 [pH] 5.0 - 8.0 [facility] Work Phone: Urine sediment bacteria coun t by microscopy (number/high power field)on 07-02-2022 Bacteria LM.HPF (Urine sed) [#/Area] 1 /[HPF] None Seen [facility] Work Phone: Urine specific gravity measu rementon 07-02-2022 Specific gravity (U) [Rel density] 1.010 1.002-1.030 [facility] Work Phone: Urobilinogen Auto test strip Ql (U)on 07-02-2022 Urobilinogen Ql (U) 1 mg/dl Normal [facility] Work Phone: Absolute lymphocyte counton 04-26-2022 Lymphocytes Auto (Unsp spec) [#/Vol] 1.44 10*3/uL 0.83-4.51 [facility] Work Phone: Basophil percentageon 2021 Basophil percentage 0 SEEN /hpf 0-5 [facility] Work Phone: Basophils/100 WBC (Bld) 0.3 % 0-1 [facility] Work Phone: Chloride [Moles/Vol] 109 mmol/L 98-107 [facility] Work Phone: Eosinophils/100 WBC (Bld) 4.3 % 0-5 [facility] Work Phone: Glucose [Mass/Vol] 121 mg/dL 74-106 [facility] Work Phone: Comment on above: Fasting Glucose resu lt from 100 to 125 mg/dL suggests IMPAIRED HOMEOSTASIS per A.D.A. criteria. Neutrophils (Bld) [#/Vol] 4.4 10*3/uL 2.0-7.7 [facility] Work Phone: Neutrophils/100 WBC (Bld) 66.3 % 47-70 [facility] Work Phone: Potassium [Moles/Vol] 3.6 mmol/L 3.5-5.[address] [facility] Work Phone: Sodium [Moles/Vol] 142 mmol/L 136-145 [facility] Work Phone: WBC (Bld) [#/Vol] 6.7 10*3/uL 4.4-11.0 [facility] Work Phone: [phone] Bilirubin Test strip Ql (U)o n 04-26-2022 Bilirubin Ql (U) Negative Negative [facility] Work Phone: [phone] Blood erythrocytes count (nu mber/volume)on 04-26-2022 RBC (Bld) [#/Vol] 4.97 10*6/uL 4.6-6.2 [facility] Work Phone: [phone] Blood hemoglobin measurement (mass/volume)on 04-26-2022 Hemoglobin (Bld) [Mass/Vol] 14.1 g/dL 13.0-16.5 [facility] Work Phone: Blood lymphocytes/100 leukoc yteson 04-26-2022 Lymphocytes/100 WBC (Bld) 21.5 % 19-41 [facility] Work Phone: Blood monocytes/100 leukocyt eson 04-26-2022 Monocytes/100 WBC (Bld) 7.3 % 0-10 [facility] Work Phone: [phone] Blood platelet mean volumeon 04-26-2022 Platelet mean volume (Bld) [Entitic vol] 9.1 fL 6.2-12.0 [facility] Work Phone: [phone] Determination of erythrocyte mean corpuscular volume (MCV)on 04-26-2022 MCV (RBC) [Entitic vol] 80.7 fL 80-94 [facility] Work Phone: [phone] Hematocrit Auto (Bld) [Volum e fraction]on 04-26-2022 Hematocrit (Bld) [Volume fraction] 40.1 % 40-54 [facility] Work Phone: [phone] Ketones Test strip Ql (U)on 04-26-2022 Ketones Ql (U) Negative Negative [facility] Work Phone: [phone] Laboratory - Chemistry and C hemistry - challengeon 04-26-2022 CO2 [Moles/Vol] 28.0 mmol/L 21.0-32.0 [facility] Work Phone: Urea nitrogen/Creatinine [Mass ratio] 10.9 mg/mg 10-20 [facility] Work Phone: Laboratory - Hematology and Cell countson 04-26-2022 Erythrocyte distribution width (RBC) [Entitic vol] 38.6 fL 35.1-43.9 [facility] Work Phone: Erythrocyte distribution width (RBC) [Ratio] 13.4 % 11.6-14.6 [facility] Work Phone: Immature granulocytes/100 WBC (Bld) 0.300 % 0.0-0.9 [facility] Work Phone: Comment on above: IG% - Immature Granu locytes (promyelocytes, myelocytes and metamyelocytes) > 1% indicates that a LEFT SHIFT is Present. MCH (RBC) [Entitic mass] 28.4 pg 27.0-32.0 [facility] Work Phone: Nucleated RBC/100 WBC (Bld) [Ratio] 0 % 0-5 [facility] Work Phone: MCHC Auto (RBC) [Mass/Vol]on 04-26-2022 MCHC (RBC) [Mass/Vol] 35.2 g/dL 32-[address] [facility] Work Phone: Mucus LM Ql (Urine sed)on Mucus Ql (Urine sed) 0 SEEN /hpf [facility] Work Phone: Nitrite Test strip Ql (U)on 04-26-2022 Nitrite Ql (U) Negative Negative [facility] Work Phone: No Panel Informationon 04-26 Troponin I High Sensitivity 3 pg/mL 3.0-78.0 [facility] Work Phone: Comment on above: Please Note: New Kira t Units and Gender Specific Reference Ranges. For more information see Policy Stat Procedure Sprakers High Sensitivity Troponin (TNIH) and attachments. Estimated Creatinine Clearance Calc 116.30 ml/min [facility] Work Phone: Estimated GFR (MDRD) Amer 121 mL/min >60 [facility] Work Phone: Comment on above: GFR Calc Estimated GFR (MDRD) Non-Af Amer 100 mL/min >60 [facility] Work Phone: Comment on above: Non- GFR Calc Platelets bldon 04-26-2022 Platelets (Bld) [#/Vol] 191 10*3/uL 150-450 [facility] Work Phone: Protein Test strip Ql (U)on 04-26-2022 Protein Ql (U) Negative Negative [facility] Work Phone: Serum or plasma calcium yayo urement (mass/volume)on 04-26-2022 Calcium [Mass/Vol] 8.8 mg/dL 8.5-10.1 [facility] Work Phone: Serum or plasma creatinine m easurement (mass/volume)on 04-26-2022 Creatinine [Mass/Vol] 0.83 mg/dL 0.70-1.30 [facility] Work Phone: Comment on above: The validity of the calculated GFR & GFRAA in patients over 70 years has not been determined. Clinical correlation is essential. Serum or plasma urea nitroge n measurement (mass/volume)on 04-26-2022 Urea nitrogen [Mass/Vol] 9 mg/dL 7-18 [facility] Work Phone: Squamous epithelial cells de tection in urine sediment by light microscopyon 04-26-2022 Epithelial cells.squamous LM Ql (Urine sed) 0 SEEN /hpf 0-5 [facility] Work Phone: Thin prep Papanicolaou smear with manual screeningon 04-26-2022 Thin prep Papanicolaou smear with manual screening 5 5-15 [facility] Work Phone: Urine blood detectionon 04-01 RBC Ql (U) Negative Negative [facility] Work Phone: RBC Ql (U) 0 SEEN /hpf 0-5 [facility] Work Phone: Urine clarityon 04-26-2022 Clarity (U) Clear Clear [facility] Work Phone: Urine color determinationon 04-26-2022 Color (U) Yellow Yellow [facility] Work Phone: Urine glucose detectionon Glucose Ql (U) Normal mg/dl Normal [facility] Work Phone: Urine leukocyte esterase det ection by dipstickon 04-26-2022 Leukocyte esterase Test strip Ql (U) Negative Negative [facility] Work Phone: Urine pHon 04-26-2022 pH (U) 6.0 [pH] 5.0 - 8.0 [facility] Work Phone: Urine sediment bacteria coun t by microscopy (number/high power field)on 04-26-2022 Bacteria LM.HPF (Urine sed) [#/Area] 0 /[HPF] None Seen [facility] Work Phone: Urine specific gravity measu rementon 04-26-2022 Specific gravity (U) [Rel density] 1.010 1.002-1.030 [facility] Work Phone: Urobilinogen Auto test strip Ql (U)on 04-26-2022 Urobilinogen Ql (U) Normal mg/dl Normal [facility] Work Phone: Glucose Glucometer (BldC) [M ass/Vol]on 03-20-2022 Glucose [Mass/Vol] 153 mg/dL 74-106 [facility] Work Phone: Comment on above: MANAGEMENT OF PATIEN T CARE PER NURSING PROTOCOL No Panel Informationon 03-20 D-Dimer Quantitative (PE/DVT) 0.75 FEU/ug/m 0.27-0.49 [facility] Work Phone: Comment on above: D-Dimer ELEVATED (>0 .49): Additional studies and clinicalassessments are indicated to conclude diagnosis of:Deep Vein Thrombosis (DVT) or Pulmonary Embolism (PE)CRITICAL VALUE VERIFIED. CALLED TO RACIEL JONES03/20/22 9108 Loida Townsend.RESULTS READ BACK BY SAME . Absolute lymphocyte counton 03-19-2022 Lymphocytes Auto (Unsp spec) [#/Vol] 1.56 10*3/uL 0.83-4.51 [facility] Work Phone: [phone] Assessment of wrist artery p atency prior to arterial punctureon 03-19-2022 Arterial patency Wrist artery --pre arterial puncture Positive [facility] Work Phone: [phone] Base excesson 03-19-2022 Base excess Calc (BldV) [Moles/Vol] 2 mmol/L -2-2 [facility] Work Phone: Basophil percentageon 2021 Basophil percentage 0-5 SEEN /hpf 0-5 [facility] Work Phone: [phone] Basophil percentage 25.7 mmol/L 22-26 [facility] Work Phone: Basophils/100 WBC (Bld) 92 % 95-99 [facility] Work Phone: Basophils/100 WBC (Bld) 0.5 % 0-1 [facility] Work Phone: [phone] Bilirubin [Mass/Vol] 1.10 mg/dL 0.20-1.00 [facility] Work Phone: [phone] Comment on above: For patients on eltr ombopag therapy, use of Dimension Sprakers TBIL is not recommended. Chloride [Moles/Vol] 106 mmol/L 98-107 [facility] Work Phone: Eosinophils/100 WBC (Bld) 2.4 % 0-5 [facility] Work Phone: [phone] Glucose [Mass/Vol] 167 mg/dL 74-106 [facility] Work Phone: [phone] Comment on above: Fasting Glucose resu lt greater than or equal to 126 mg/dL suggests DIABETES MELLITUS per A.D.A. criteria. Lactate [Moles/Vol] 1.2 mmol/L 0.4-2.0 [facility] Work Phone: [phone] Neutrophils (Bld) [#/Vol] 7.8 10*3/uL 2.0-7.7 [facility] Work Phone: Neutrophils/100 WBC (Bld) 74.4 % 47-70 [facility] Work Phone: Potassium [Moles/Vol] 3.6 mmol/L 3.5-5.1 [facility] Work Phone: Protein [Mass/Vol] 7.2 g/dL 6.4-8.2 [facility] Work Phone: Sodium [Moles/Vol] 141 mmol/L 136-145 [facility] Work Phone: WBC (Bld) [#/Vol] 10.5 10*3/uL 4.4-11.0 [facility] Work Phone: [phone] Bilirubin Test strip Ql (U)o n 03-19-2022 Bilirubin Ql (U) Negative Negative [facility] Work Phone: Blood erythrocytes count (nu mber/volume)on 03-19-2022 RBC (Bld) [#/Vol] 5.05 10*6/uL 4.6-6.2 [facility] Work Phone: Blood hemoglobin measurement (mass/volume)on 03-19-2022 Hemoglobin (Bld) [Mass/Vol] 14.5 g/dL 13.0-16.5 [facility] Work Phone: Blood lymphocytes/100 leukoc yteson 03-19-2022 Lymphocytes/100 WBC (Bld) 14.9 % 19-41 [facility] Work Phone: Blood monocytes/100 leukocyt eson 03-19-2022 Monocytes/100 WBC (Bld) 7.3 % 0-10 [facility] Work Phone: Blood platelet mean volumeon 03-19-2022 Platelet mean volume (Bld) [Entitic vol] 9.1 fL 6.2-12.0 [facility] Work Phone: CO2 (BldA) [Partial pressure ]on 03-19-2022 CO2 (Bld) [Partial pressure] 37.6 mm[Hg] 35-45 [facility] Work Phone: Determination of erythrocyte mean corpuscular volume (MCV)on 03-19-2022 MCV (RBC) [Entitic vol] 83.4 fL 80-94 [facility] Work Phone: [phone] Hematocrit Auto (Bld) [Volum e fraction]on 03-19-2022 Hematocrit (Bld) [Volume fraction] 42.1 % 40-54 [facility] Work Phone: [phone] INR in Blood by Coagulation assayon 03-19-2022 INR Coag (Bld) [Relative time] 1.1 {INR} [facility] Work Phone: Ketones Test strip Ql (U)on 03-19-2022 Ketones Ql (U) Negative Negative [facility] Work Phone: Laboratory - Chemistry and C hemistry - challengeon 03-19-2022 ALP [Catalytic activity/Vol] 68 U/L 45-117 [facility] Work Phone: ALT [Catalytic activity/Vol] 14 U/L 16-61 [facility] Work Phone: CO2 [Moles/Vol] 28.0 mmol/L 21.0-32.0 [facility] Work Phone: Globulin (S) [Mass/Vol] 3.5 g/dL 2.2-4.2 [facility] Work Phone: [phone] Urea nitrogen/Creatinine [Mass ratio] 16.4 mg/mg 10-20 [facility] Work Phone: Laboratory - Coagulationon 0 03-19-2022 PT Coag (PPP) [Time] 14.1 s 11.7-14.9 [facility] Work Phone: Laboratory - Hematology and Cell countson 03-19-2022 Erythrocyte distribution width (RBC) [Entitic vol] 41.2 fL 35.1-43.9 [facility] Work Phone: Erythrocyte distribution width (RBC) [Ratio] 13.5 % 11.6-14.6 [facility] Work Phone: Immature granulocytes/100 WBC (Bld) 0.500 % 0.0-0.9 [facility] Work Phone: Comment on above: IG% - Immature Granu locytes (promyelocytes, myelocytes and metamyelocytes) > 1% indicates that a LEFT SHIFT is Present. MCH (RBC) [Entitic mass] 28.7 pg 27.0-32.0 [facility] Work Phone: Nucleated RBC/100 WBC (Bld) [Ratio] 0 % 0-5 [facility] Work Phone: MCHC Auto (RBC) [Mass/Vol]on 03-19-2022 MCHC (RBC) [Mass/Vol] 34.4 g/dL 32-[address] [facility] Work Phone: Mucus LM Ql (Urine sed)on Mucus Ql (Urine sed) 0 SEEN /hpf [facility] Work Phone: Nitrite Test strip Ql (U)on 03-19-2022 Nitrite Ql (U) Negative Negative [facility] Work Phone: No Panel Informationon 03-19 SARS-CoV-2 & FLU Antigen (Rapid) [facility] Work Phone: Blood Gas Sample Site L Radial [facility] Work Phone: Blood Gas Specimen Type ART [facility] Work Phone: Blood Gas Total CO2 27 mmol/L [facility] Work Phone: Oxygen Delivery Device Room Air [facility] Work Phone: Estimated Creatinine Clearance Calc 88.88 ml/min [facility] Work Phone: Estimated GFR (MDRD) Amer 87 mL/min >60 [facility] Work Phone: Comment on above: GFR Calc Estimated GFR (MDRD) Non-Af Amer 72 mL/min >60 [facility] Work Phone: Comment on above: Non- GFR Calc Troponin I High Sensitivity < 3 pg/mL 3.0-78.0 [facility] Work Phone: Comment on above: Please Note: New Kira t Units and Gender Specific Reference Ranges. For more information see Policy Stat Procedure Sp[place]ers High Sensitivity Troponin (TNIH) and attachments. Oxygen (BldA) [Partial press ure]on 03-19-2022 Oxygen (Bld) [Partial pressure] 62 mmHG 75-100 [facility] Work Phone: Platelets bldon 03-19-2022 Platelets (Bld) [#/Vol] 278 10*3/uL 150-450 [facility] Work Phone: Protein Test strip Ql (U)on 03-19-2022 Protein Ql (U) 30 mg/dl Negative [facility] Work Phone: Serum or plasma albumin yayo urement (mass/volume)on 03-19-2022 Albumin [Mass/Vol] 3.7 g/dL 3.2-5.0 [facility] Work Phone: Serum or plasma albumin/glob ulin mass ratioon 03-19-2022 Albumin/Globulin [Mass ratio] 1.1 {ratio} 0.9-2.4 [facility] Work Phone: Serum or plasma calcium yayo urement (mass/volume)on 03-19-2022 Calcium [Mass/Vol] 9.0 mg/dL 8.5-10.1 [facility] Work Phone: Serum or plasma creatinine m easurement (mass/volume)on 03-19-2022 Creatinine [Mass/Vol] 1.10 mg/dL 0.70-1.[address] [facility] Work Phone: Comment on above: The validity of the calculated GFR & GFRAA in patients over 70 years has not been determined. Clinical correlation is essential. Serum or plasma urea nitroge n measurement (mass/volume)on 03-19-2022 Urea nitrogen [Mass/Vol] 18 mg/dL 7-18 [facility] Work Phone: [phone] Squamous epithelial cells de tection in urine sediment by light microscopyon 03-19-2022 Epithelial cells.squamous LM Ql (Urine sed) 0-5 SEEN /hpf 0-5 [facility] Work Phone: [phone] Thin prep Papanicolaou smear with manual screeningon 03-19-2022 Thin prep Papanicolaou smear with manual screening 10 U/L 15-37 [facility] Work Phone: Thin prep Papanicolaou smear with manual screening 7 5-15 [facility] Work Phone: Urine blood detectionon 03-01 RBC Ql (U) Negative Negative [facility] Work Phone: [phone] RBC Ql (U) 0 SEEN /hpf 0-5 [facility] Work Phone: [phone] Urine clarityon 03-19-2022 Clarity (U) Clear Clear [facility] Work Phone: Urine color determinationon 03-19-2022 Color (U) Yellow Yellow [facility] Work Phone: [phone] Urine glucose detectionon Glucose Ql (U) Normal mg/dl Normal [facility] Work Phone: [phone] Urine leukocyte esterase det ection by dipstickon 03-19-2022 Leukocyte esterase Test strip Ql (U) 25 /ul Negative [facility] Work Phone: [phone] Urine pHon 03-19-2022 pH (U) 5.0 [pH] 5.0 - 8.0 [facility] Work Phone: [phone] Urine sediment bacteria coun t by microscopy (number/high power field)on 03-19-2022 Bacteria LM.HPF (Urine sed) [#/Area] 0 /[HPF] None Seen [facility] Work Phone: [phone] Urine specific gravity measu rementon 03-19-2022 Specific gravity (U) [Rel density] 1.020 1.002-1.030 [facility] Work Phone: [phone] Urobilinogen Auto test strip Ql (U)on 03-19-2022 Urobilinogen Ql (U) 1 mg/[facility]: [phone] pH measurementon 03-19-2022 pH (Unsp spec) 7.44 [pH] 7.35-7.45 [facility] Work Phone: [phone] Absolute lymphocyte counton 03-02-2022 Lymphocytes Auto (Unsp spec) [#/Vol] 1.57 10*3/uL 0.83-4.51 [facility] Work Phone: Basophil percentageon 2021 Basophils/100 WBC (Bld) 0.7 % 0-1 [facility] Work Phone: [phone] Bilirubin [Mass/Vol] 0.40 mg/dL 0.20-1.00 [facility] Work Phone: [phone] Comment on above: For patients on eltr ombopag therapy, use of Dimension [place]ers TBIL is not recommended. Chloride [Moles/Vol] 108 mmol/L 98-107 [facility] Work Phone: Eosinophils/100 WBC (Bld) 3.8 % 0-5 [facility] Work Phone: [phone] Glucose [Mass/Vol] 222 mg/dL 74-106 [facility] Work Phone: [phone] Comment on above: Glucose result great er than or equal to 200 mg/dLsuggests DIABETES MELLITUS per A.D.A. criteria. Neutrophils (Bld) [#/Vol] 4.8 10*3/uL 2.0-7.7 [facility] Work Phone: [phone] Neutrophils/100 WBC (Bld) 66.5 % 47-70 [facility] Work Phone: [phone] Potassium [Moles/Vol] 3.5 mmol/L 3.5-5.[address] [facility] Work Phone: [phone] Protein [Mass/Vol] 7.2 g/dL 6.4-8.2 [facility] Work Phone: Sodium [Moles/Vol] 141 mmol/L 136-145 [facility] Work Phone: WBC (Bld) [#/Vol] 7.2 10*3/uL 4.4-11.0 [facility] Work Phone: Blood erythrocytes count (nu mber/volume)on 03-02-2022 RBC (Bld) [#/Vol] 4.75 10*6/uL 4.6[facility]: Blood hemoglobin measurement (mass/volume)on 03-02-2022 Hemoglobin (Bld) [Mass/Vol] 13.7 g/dL 13.0-16.5 [facility] Work Phone: Blood lymphocytes/100 leukoc yteson 03-02-2022 Lymphocytes/100 WBC (Bld) 21.9 % 19-41 [facility] Work Phone: Blood monocytes/100 leukocyt eson 03-02-2022 Monocytes/100 WBC (Bld) 6.8 % 0-10 [facility] Work Phone: Blood platelet mean volumeon 03-02-2022 Platelet mean volume (Bld) [Entitic vol] 9.6 fL 6.2-12.0 [facility] Work Phone: [phone] Determination of erythrocyte mean corpuscular volume (MCV)on 03-02-2022 MCV (RBC) [Entitic vol] 82.1 fL 80-94 [facility] Work Phone: Hematocrit Auto (Bld) [Volum e fraction]on 03-02-2022 Hematocrit (Bld) [Volume fraction] 39.0 % 40-54 [facility] Work Phone: [phone] Laboratory - Chemistry and C hemistry - challengeon 03-02-2022 ALP [Catalytic activity/Vol] 69 U/L 45-117 [facility] Work Phone: ALT [Catalytic activity/Vol] 15 U/L 16-61 [facility] Work Phone: [phone] CO2 [Moles/Vol] 26.0 mmol/L 21.0-32.0 [facility] Work Phone: Globulin (S) [Mass/Vol] 3.5 g/dL 2.2-4.2 [facility] Work Phone: Urea nitrogen/Creatinine [Mass ratio] 14.9 mg/mg 10-20 [facility] Work Phone: Laboratory - Hematology and Cell countson 03-02-2022 Erythrocyte distribution width (RBC) [Entitic vol] 40.8 fL 35.1-43.9 [facility] Work Phone: Erythrocyte distribution width (RBC) [Ratio] 13.9 % 11.6-14.6 [facility] Work Phone: Immature granulocytes/100 WBC (Bld) 0.300 % 0.0-0.9 [facility] Work Phone: Comment on above: IG% - Immature Granu locytes (promyelocytes, myelocytes and metamyelocytes) > 1% indicates that a LEFT SHIFT is Present. MCH (RBC) [Entitic mass] 28.8 pg 27.0-32.0 [facility] Work Phone: Nucleated RBC/100 WBC (Bld) [Ratio] 0 % 0-5 [facility] Work Phone: MCHC Auto (RBC) [Mass/Vol]on 03-02-2022 MCHC (RBC) [Mass/Vol] 35.1 g/dL 32-[address] [facility] Work Phone: No Panel Informationon 03-02 Estimated Creatinine Clearance Calc 104.00 ml/min [facility] Work Phone: Estimated GFR (MDRD) Amer 105 mL/min >60 [facility] Work Phone: Comment on above: GFR Calc Estimated GFR (MDRD) Non-Af Amer 86 mL/min >60 [facility] Work Phone: Comment on above: Non- GFR Calc Platelets bldon 03-02-2022 Platelets (Bld) [#/Vol] 221 10*3/uL 150-450 [facility] Work Phone: Serum or plasma albumin yayo urement (mass/volume)on 03-02-2022 Albumin [Mass/Vol] 3.7 g/dL 3.2-5.0 [facility] Work Phone: [phone] Serum or plasma albumin/glob ulin mass ratioon 03-02-2022 Albumin/Globulin [Mass ratio] 1.1 {ratio} 0.9-2.4 [facility] Work Phone: [phone] Serum or plasma calcium yayo urement (mass/volume)on 03-02-2022 Calcium [Mass/Vol] 8.5 mg/dL 8.5-10.1 [facility] Work Phone: Serum or plasma creatinine m easurement (mass/volume)on 03-02-2022 Creatinine [Mass/Vol] 0.94 mg/dL 0.70-1.[address] [facility] Work Phone: Comment on above: The validity of the calculated GFR & GFRAA in patients over 70 years has not been determined. Clinical correlation is essential. Serum or plasma urea nitroge n measurement (mass/volume)on 03-02-2022 Urea nitrogen [Mass/Vol] 14 mg/dL 7-18 [facility] Work Phone: Thin prep Papanicolaou smear with manual screeningon 03-02-2022 Thin prep Papanicolaou smear with manual screening 8 U/L 15-37 [facility] Work Phone: Thin prep Papanicolaou smear with manual screening 7 5-15 [facility] Work Phone: [phone] Absolute lymphocyte counton 01-31-2022 Lymphocytes Auto (Unsp spec) [#/Vol] 1.83 10*3/uL 0.83-4.51 [facility] Work Phone: [phone] Basophil percentageon 2021 Basophils/100 WBC (Bld) 0.4 % 0-1 [facility] Work Phone: [phone] Bilirubin [Mass/Vol] 0.60 mg/dL 0.20-1.00 [facility] Work Phone: [phone] Comment on above: For patients on eltr ombopag therapy, use of Dimension Sprakers TBIL is not recommended. Chloride [Moles/Vol] 108 mmol/L 98-107 [facility] Work Phone: Eosinophils/100 WBC (Bld) 3.9 % 0-5 [facility] Work Phone: Glucose [Mass/Vol] 172 mg/dL 74-106 [facility] Work Phone: [phone] Comment on above: Fasting Glucose resu lt greater than or equal to 126 mg/dL suggests DIABETES MELLITUS per A.D.A. criteria. Neutrophils (Bld) [#/Vol] 5.6 10*3/uL 2.0-7.7 [facility] Work Phone: Neutrophils/100 WBC (Bld) 66.2 % 47-70 [facility] Work Phone: Potassium [Moles/Vol] 3.7 mmol/L 3.5-5.[address] [facility] Work Phone: Protein [Mass/Vol] 7.0 g/dL 6.4-8.2 [facility] Work Phone: Sodium [Moles/Vol] 140 mmol/L 136-145 [facility] Work Phone: WBC (Bld) [#/Vol] 8.4 10*3/uL 4.4-11.0 [facility] Work Phone: Blood erythrocytes count (nu mber/volume)on 01-31-2022 RBC (Bld) [#/Vol] 5.07 10*6/uL 4.6-6.2 [facility] Work Phone: Blood hemoglobin measurement (mass/volume)on 01-31-2022 Hemoglobin (Bld) [Mass/Vol] 14.5 g/dL 13.0-16.5 [facility] Work Phone: Blood lymphocytes/100 leukoc yteson 01-31-2022 Lymphocytes/100 WBC (Bld) 21.8 % 19-41 [facility] Work Phone: Blood monocytes/100 leukocyt eson 01-31-2022 Monocytes/100 WBC (Bld) 7.3 % 0-10 [facility] Work Phone: Blood platelet mean volumeon 01-31-2022 Platelet mean volume (Bld) [Entitic vol] 9.1 fL 6.2-12.0 [facility] Work Phone: Determination of erythrocyte mean corpuscular volume (MCV)on 01-31-2022 MCV (RBC) [Entitic vol] 80.9 fL 80-94 [facility] Work Phone: Hematocrit Auto (Bld) [Volum e fraction]on 01-31-2022 Hematocrit (Bld) [Volume fraction] 41.0 % 40-54 [facility] Work Phone: [phone] Laboratory - Chemistry and C hemistry - challengeon 01-31-2022 ALP [Catalytic activity/Vol] 68 U/L 45-117 [facility] Work Phone: ALT [Catalytic activity/Vol] 14 U/L 16-61 [facility] Work Phone: CO2 [Moles/Vol] 26.0 mmol/L 21.0-32.0 [facility] Work Phone: [phone] Globulin (S) [Mass/Vol] 3.3 g/dL 2.2-4.2 [facility] Work Phone: Urea nitrogen/Creatinine [Mass ratio] 18.0 mg/mg 10-20 [facility] Work Phone: Laboratory - Hematology and Cell countson 01-31-2022 Erythrocyte distribution width (RBC) [Entitic vol] 39.8 fL 35.1-43.9 [facility] Work Phone: Erythrocyte distribution width (RBC) [Ratio] 13.8 % 11.6-14.6 [facility] Work Phone: Immature granulocytes/100 WBC (Bld) 0.400 % 0.0-0.9 [facility] Work Phone: Comment on above: IG% - Immature Granu locytes (promyelocytes, myelocytes and metamyelocytes) > 1% indicates that a LEFT SHIFT is Present. MCH (RBC) [Entitic mass] 28.6 pg 27.0-32.0 [facility] Work Phone: Nucleated RBC/100 WBC (Bld) [Ratio] 0 % 0-5 [facility] Work Phone: MCHC Auto (RBC) [Mass/Vol]on 01-31-2022 MCHC (RBC) [Mass/Vol] 35.4 g/dL 32-[address] [facility] Work Phone: No Panel Informationon 01-31 Estimated Creatinine Clearance Calc 125.34 ml/min [facility] Work Phone: Estimated GFR (MDRD) Amer 131 mL/min >60 [facility] Work Phone: Comment on above: GFR Calc Estimated GFR (MDRD) Non-Af Amer 108 mL/min >60 [facility] Work Phone: Comment on above: Non- GFR Calc Platelets bldon 01-31-2022 Platelets (Bld) [#/Vol] 222 10*3/uL 150-450 [facility] Work Phone: Serum or plasma albumin yayo urement (mass/volume)on 01-31-2022 Albumin [Mass/Vol] 3.7 g/dL 3.2-5.0 [facility] Work Phone: Serum or plasma albumin/glob ulin mass ratioon 01-31-2022 Albumin/Globulin [Mass ratio] 1.1 {ratio} 0.9-2.4 [facility] Work Phone: Serum or plasma calcium yayo urement (mass/volume)on 01-31-2022 Calcium [Mass/Vol] 8.4 mg/dL 8.5-10.1 [facility] Work Phone: Serum or plasma creatinine m easurement (mass/volume)on 01-31-2022 Creatinine [Mass/Vol] 0.78 mg/dL 0.70-1.[address] [facility] Work Phone: Comment on above: The validity of the calculated GFR & GFRAA in patients over 70 years has not been determined. Clinical correlation is essential. Serum or plasma urea nitroge n measurement (mass/volume)on 01-31-2022 Urea nitrogen [Mass/Vol] 14 mg/dL 7-18 [facility] Work Phone: Thin prep Papanicolaou smear with manual screeningon 01-31-2022 Thin prep Papanicolaou smear with manual screening 13 U/L 15-37 [facility] Work Phone: Thin prep Papanicolaou smear with manual screening 6 5-15 [facility] Work Phone: Absolute lymphocyte counton 01-08-2022 Lymphocytes Auto (Unsp spec) [#/Vol] 1.33 10*3/uL 0.83-4.51 [facility] Work Phone: Basophil percentageon 2021 Basophils/100 WBC (Bld) 0.3 % 0-1 [facility] Work Phone: Bilirubin [Mass/Vol] 0.60 mg/dL 0.20-1.00 [facility] Work Phone: Comment on above: For patients on eltr ombopag therapy, use of Dimension [employer] TBIL is not recommended. Chloride [Moles/Vol] 104 mmol/L 98-107 [facility] Work Phone: Eosinophils/100 WBC (Bld) 0.5 % 0-5 [facility] Work Phone: Glucose [Mass/Vol] 294 mg/dL 74-106 [facility] Work Phone: Comment on above: Glucose result great er than or equal to 200 mg/dLsuggests DIABETES MELLITUS per A.D.A. criteria. Neutrophils (Bld) [#/Vol] 8.1 10*3/uL 2.0-7.7 [facility] Work Phone: Neutrophils/100 WBC (Bld) 80.9 % 47-70 [facility] Work Phone: Potassium [Moles/Vol] 3.6 mmol/L 3.5-5.[address] [facility] Work Phone: Protein [Mass/Vol] 7.6 g/dL 6.4-8.2 [facility] Work Phone: Sodium [Moles/Vol] 135 mmol/L 136-145 [facility] Work Phone: WBC (Bld) [#/Vol] 10.0 10*3/uL 4.4-11.0 [facility] Work Phone: Blood erythrocytes count (nu mber/volume)on 01-08-2022 RBC (Bld) [#/Vol] 5.06 10*6/uL 4.6-6.2 [facility] Work Phone: Blood hemoglobin measurement (mass/volume)on 01-08-2022 Hemoglobin (Bld) [Mass/Vol] 14.6 g/dL 13.0-16.5 [facility] Work Phone: Blood lymphocytes/100 leukoc yteson 01-08-2022 Lymphocytes/100 WBC (Bld) 13.4 % 19-41 [facility] Work Phone: Blood monocytes/100 leukocyt eson 01-08-2022 Monocytes/100 WBC (Bld) 4.4 % 0-10 [facility] Work Phone: Blood platelet mean volumeon 01-08-2022 Platelet mean volume (Bld) [Entitic vol] 9.2 fL 6.2-12.0 [facility] Work Phone: Determination of erythrocyte mean corpuscular volume (MCV)on 01-08-2022 MCV (RBC) [Entitic vol] 81.0 fL 80-94 [facility] Work Phone: Hematocrit Auto (Bld) [Volum e fraction]on 01-08-2022 Hematocrit (Bld) [Volume fraction] 41.0 % 40-54 [facility] Work Phone: [phone] Laboratory - Chemistry and C hemistry - challengeon 01-08-2022 ALP [Catalytic activity/Vol] 79 U/L 45-117 [facility] Work Phone: ALT [Catalytic activity/Vol] 16 U/L 16-61 [facility] Work Phone: CO2 [Moles/Vol] 25.0 mmol/L 21.0-32.0 [facility] Work Phone: [phone] Globulin (S) [Mass/Vol] 3.6 g/dL 2.2-4.2 [facility] Work Phone: [phone] Urea nitrogen/Creatinine [Mass ratio] 16.8 mg/mg 10-20 [facility] Work Phone: [phone] Laboratory - Hematology and Cell countson 01-08-2022 Erythrocyte distribution width (RBC) [Entitic vol] 40.0 fL 35.1-43.9 [facility] Work Phone: [phone] Erythrocyte distribution width (RBC) [Ratio] 13.9 % 11.6-14.6 [facility] Work Phone: [phone] Immature granulocytes/100 WBC (Bld) 0.500 % 0.0-0.9 [facility] Work Phone: [phone] Comment on above: IG% - Immature Granu locytes (promyelocytes, myelocytes and metamyelocytes) > 1% indicates that a LEFT SHIFT is Present. MCH (RBC) [Entitic mass] 28.9 pg 27.0-32.0 [facility] Work Phone: [phone] Nucleated RBC/100 WBC (Bld) [Ratio] 0 % 0-5 [facility] Work Phone: [phone] MCHC Auto (RBC) [Mass/Vol]on 01-08-2022 MCHC (RBC) [Mass/Vol] 35.6 g/dL 32-36 [facility] Work Phone: No Panel Informationon 01-08 Estimated Creatinine Clearance Calc 96.79 ml/min [facility] Work Phone: Estimated GFR (MDRD) Amer 96 mL/min >60 [facility] Work Phone: Comment on above: GFR Calc Estimated GFR (MDRD) Non-Af Amer 80 mL/min >60 [facility] Work Phone: Comment on above: Non- GFR Calc Platelets bldon 01-08-2022 Platelets (Bld) [#/Vol] 228 10*3/uL 150-450 [facility] Work Phone: Serum or plasma albumin yayo urement (mass/volume)on 01-08-2022 Albumin [Mass/Vol] 4.0 g/dL 3.2-5.0 [facility] Work Phone: Serum or plasma albumin/glob ulin mass ratioon 01-08-2022 Albumin/Globulin [Mass ratio] 1.1 {ratio} 0.9-2.4 [facility] Work Phone: Serum or plasma calcium yayo urement (mass/volume)on 01-08-2022 Calcium [Mass/Vol] 9.3 mg/dL 8.5-10.1 [facility] Work Phone: Serum or plasma creatinine m easurement (mass/volume)on 01-08-2022 Creatinine [Mass/Vol] 1.01 mg/dL 0.70-1.[address] [facility] Work Phone: Comment on above: The validity of the calculated GFR & GFRAA in patients over 70 years has not been determined. Clinical correlation is essential. Serum or plasma urea nitroge n measurement (mass/volume)on 01-08-2022 Urea nitrogen [Mass/Vol] 17 mg/dL 7-18 [facility] Work Phone: Thin prep Papanicolaou smear with manual screeningon 01-08-2022 Thin prep Papanicolaou smear with manual screening 8 U/L 15-37 [facility] Work Phone: Thin prep Papanicolaou smear with manual screening 6 5-15 [facility] Work Phone: Absolute lymphocyte counton 01-07-2022 Lymphocytes Auto (Unsp spec) [#/Vol] 2.13 10*3/uL 0.83-4.51 [facility] Work Phone: Basophil percentageon 2021 Basophils/100 WBC (Bld) 0.3 % 0-1 [facility] Work Phone: Bilirubin [Mass/Vol] 0.60 mg/dL 0.20-1.00 [facility] Work Phone: Comment on above: For patients on eltr ombopag therapy, use of Dimension [place] TBIL is not recommended. Chloride [Moles/Vol] 107 mmol/L 98-107 [facility] Work Phone: Eosinophils/100 WBC (Bld) 2.7 % 0-5 [facility] Work Phone: Glucose [Mass/Vol] 150 mg/dL 74-106 [facility] Work Phone: Comment on above: Fasting Glucose resu lt greater than or equal to 126 mg/dL suggests DIABETES MELLITUS per A.D.A. criteria. Neutrophils (Bld) [#/Vol] 3.5 10*3/uL 2.0-7.7 [facility] Work Phone: Neutrophils/100 WBC (Bld) 55.6 % 47-70 [facility] Work Phone: Potassium [Moles/Vol] 3.4 mmol/L 3.5-5.[address] [facility] Work Phone: Protein [Mass/Vol] 6.3 g/dL 6.4-8.2 [facility] Work Phone: Sodium [Moles/Vol] 139 mmol/L 136-145 [facility] Work Phone: WBC (Bld) [#/Vol] 6.3 10*3/uL 4.4-11.0 [facility] Work Phone: Blood erythrocytes count (nu mber/volume)on 01-07-2022 RBC (Bld) [#/Vol] 4.65 10*6/uL 4.6-6.2 [facility] Work Phone: Blood hemoglobin measurement (mass/volume)on 01-07-2022 Hemoglobin (Bld) [Mass/Vol] 13.5 g/dL 13.0-16.5 [facility] Work Phone: Blood lymphocytes/100 leukoc yteson 01-07-2022 Lymphocytes/100 WBC (Bld) 33.9 % 19-41 [facility] Work Phone: Blood monocytes/100 leukocyt eson 01-07-2022 Monocytes/100 WBC (Bld) 7.2 % 0-10 [facility] Work Phone: Blood platelet mean volumeon 01-07-2022 Platelet mean volume (Bld) [Entitic vol] 9.4 fL 6.2-12.0 [facility] Work Phone: Determination of erythrocyte mean corpuscular volume (MCV)on 01-07-2022 MCV (RBC) [Entitic vol] 82.2 fL 80-94 [facility] Work Phone: Glucose Glucometer (BldC) [M ass/Vol]on 01-07-2022 Glucose [Mass/Vol] 161 mg/dL 74-106 [facility] Work Phone: Comment on above: MANAGEMENT OF PATIEN T CARE PER NURSING PROTOCOL Hematocrit Auto (Bld) [Volum e fraction]on 01-07-2022 Hematocrit (Bld) [Volume fraction] 38.2 % 40-54 [facility] Work Phone: Laboratory - Chemistry and C hemistry - challengeon 01-07-2022 ALP [Catalytic activity/Vol] 64 U/L 45-117 [facility] Work Phone: ALT [Catalytic activity/Vol] 11 U/L 16-61 [facility] Work Phone: CO2 [Moles/Vol] 27.0 mmol/L 21.0-32.0 [facility] Work Phone: Globulin (S) [Mass/Vol] 3.1 g/dL 2.2-4.2 [facility] Work Phone: Urea nitrogen/Creatinine [Mass ratio] 12.9 mg/mg 10-20 [facility] Work Phone: Laboratory - Hematology and Cell countson 01-07-2022 Erythrocyte distribution width (RBC) [Entitic vol] 40.8 fL 35.1-43.9 [facility] Work Phone: Erythrocyte distribution width (RBC) [Ratio] 13.9 % 11.6-14.6 [facility] Work Phone: Immature granulocytes/100 WBC (Bld) 0.300 % 0.0-0.9 [facility] Work Phone: Comment on above: IG% - Immature Granu locytes (promyelocytes, myelocytes and metamyelocytes) > 1% indicates that a LEFT SHIFT is Present. MCH (RBC) [Entitic mass] 29.0 pg 27.0-32.0 [facility] Work Phone: Nucleated RBC/100 WBC (Bld) [Ratio] 0 % 0-5 [facility] Work Phone: MCHC Auto (RBC) [Mass/Vol]on 01-07-2022 MCHC (RBC) [Mass/Vol] 35.3 g/dL 32-36 [facility] Work Phone: No Panel Informationon 01-07 Estimated Creatinine Clearance Calc 139.66 ml/min [facility] Work Phone: Estimated GFR (MDRD) Amer 148 mL/min >60 [facility] Work Phone: Comment on above: GFR Calc Estimated GFR (MDRD) Non-Af Amer 123 mL/min >60 [facility] Work Phone: Comment on above: Non- GFR Calc Platelets bldon 01-07-2022 Platelets (Bld) [#/Vol] 208 10*3/uL 150-450 [facility] Work Phone: Serum or plasma albumin yayo urement (mass/volume)on 01-07-2022 Albumin [Mass/Vol] 3.2 g/dL 3.2-5.0 [facility] Work Phone: Serum or plasma albumin/glob ulin mass ratioon 01-07-2022 Albumin/Globulin [Mass ratio] 1.0 {ratio} 0.9-2.4 [facility] Work Phone: Serum or plasma calcium yayo urement (mass/volume)on 01-07-2022 Calcium [Mass/Vol] 8.4 mg/dL 8.5-10.1 [facility] Work Phone: Serum or plasma creatinine m easurement (mass/volume)on 01-07-2022 Creatinine [Mass/Vol] 0.70 mg/dL 0.70-1.[address] [facility] Work Phone: Comment on above: The validity of the calculated GFR & GFRAA in patients over 70 years has not been determined. Clinical correlation is essential. Serum or plasma urea nitroge n measurement (mass/volume)on 01-07-2022 Urea nitrogen [Mass/Vol] 9 mg/dL 7-18 [facility] Work Phone: Thin prep Papanicolaou smear with manual screeningon 01-07-2022 Thin prep Papanicolaou smear with manual screening 8 U/L 15-37 [facility] Work Phone: Thin prep Papanicolaou smear with manual screening 5 5-15 [facility] Work Phone: Erythrocyte sedimentation ra mau 01-05-2022 ESR (Bld) [Velocity] 4 mm/h 0-20 [facility] Work Phone: Serum or plasma C reactive p rotein measurement (mass/volume)on 01-05-2022 CRP [Mass/Vol] mg/L 0.0-3.0 [facility] Work Phone: Comment on above: C-Reactive Protein ( CRP) provides useful information for thediagnosis, therapy and monitoring of inflammatory processesand associated diseases. For the evaluation of Relative Riskfor Cardiovascular Disease, a High Sensitivity CRP (HSCRP)should be ordered. Thin prep Papanicolaou smear with manual screeningon 01-05-2022 Thin prep Papanicolaou smear with manual screening 192 U/L 87-241 [facility] Work Phone: Basophil percentageon 2021 Basophil percentage 0 SEEN /hpf 0-5 os [facility] Work Phone: Lactate [Moles/Vol] 1.1 mmol[facility]L [facility].4[facility] Bilirubin Test strip Ql (U)o n 01-04-2022 Bilirubin Ql (U) Negative Negative [facility] Work Phone: Ketones Test strip Ql (U)on 01-04-2022 Ketones Ql (U) 50 mg/dl Negative [facility] Work Phone: Laboratory - Chemistry and C hemistry - challengeon 01-04-2022 Lipase [Catalytic activity/Vol] 38 U/L 73-393 [facility] Work Phone: Mucus LM Ql (Urine sed)on Mucus Ql (Urine sed) 0 SEEN /hpf [facility] Work Phone: Nitrite Test strip Ql (U)on 01-04-2022 Nitrite Ql (U) Negative Negative [facility] Work Phone: Protein Test strip Ql (U)on 01-04-2022 Protein Ql (U) 15 mg/dl Negative [facility] Work Phone: Squamous epithelial cells de tection in urine sediment by light microscopyon 01-04-2022 Epithelial cells.squamous LM Ql (Urine sed) 0 SEEN /hpf 0-5 [facility] Work Phone: Urine blood detectionon RBC Ql (U) Negative Negative [facility] Work Phone: RBC Ql (U) 0 SEEN /hpf 0-5 [facility] Work Phone: Urine clarityon 01-04-2022 Clarity (U) Clear Clear [facility] Work Phone: Urine color determinationon 01-04-2022 Color (U) Yellow Yellow [facility] Work Phone: Urine glucose detectionon Glucose Ql (U) 1000 mg/dl Normal [facility] Work Phone: Urine leukocyte esterase det ection by dipstickon 01-04-2022 Leukocyte esterase Test strip Ql (U) Negative Negative [facility] Work Phone: Urine pHon 01-04-2022 pH (U) 5.0 [pH] 5.0 - 8.0 [facility] Work Phone: Urine sediment bacteria coun t by microscopy (number/high power field)on 01-04-2022 Bacteria LM.HPF (Urine sed) [#/Area] 0 /[HPF] None Seen [facility] Work Phone: Urine specific gravity measu rementon 01-04-2022 Specific gravity (U) [Rel density] 1.010 1.002-1.030 [facility] Work Phone: Urobilinogen Auto test strip Ql (U)on 01-04-2022 Urobilinogen Ql (U) Normal mg/dl Normal [facility] Work Phone: Basophil percentageon 2021 [facility] Work [facility]: Comment on above: Test not performedhe molysis present redraw for k if indicatedPrevious reported result: TNP mmol/LEdited by: VEL on 11/12/21:2008 Chloride [Moles/Vol] 102 mmol/L 98-[address] [facility] Work Phone: Glucose [Mass/Vol] 326 mg/dL 74-106 [facility] Work Phone: Comment on above: Glucose result great er than or equal to 200 mg/dLsuggests DIABETES MELLITUS per A.D.A. criteria. Sodium [Moles/Vol] 135 mmol/L 136-145 [facility] Work Phone: Glucose Glucometer (BldC) [M ass/Vol]on 11-12-2021 Glucose [Mass/Vol] 324 mg/dL 70-110 [facility] Work Phone: Comment on above: MANAGEMENT OF PATIEN T CARE PER NURSING PROTOCOL Laboratory - Chemistry and C hemistry - challengeon 11-12-2021 CO2 [Moles/Vol] 26.0 mmol/L 21.0-32.0 [facility] Work Phone: Urea nitrogen/Creatinine [Mass ratio] 13.4 mg/mg 10-20 [facility] Work Phone: No Panel Informationon 11-12 Estimated Creatinine Clearance Calc 119.22 ml/min [facility] Work Phone: Estimated GFR (MDRD) Amer 122 mL/min >60 [facility] Work Phone: Comment on above: GFR Calc Estimated GFR (MDRD) Non-Af Amer 101 mL/min >60 [facility] Work Phone: Comment on above: Non- GFR Calc Serum or plasma calcium yayo urement (mass/volume)on 11-12-2021 Calcium [Mass/Vol] 8.6 mg/dL 8.5-10.1 [facility] Work Phone: Serum or plasma creatinine m easurement (mass/volume)on 11-12-2021 Creatinine [Mass/Vol] 0.82 mg/dL 0.70-1.[address] [facility] Work Phone: Comment on above: The validity of the calculated GFR & GFRAA in patients over 70 years has not been determined. Clinical correlation is essential. Serum or plasma urea nitroge n measurement (mass/volume)on 11-12-2021 Urea nitrogen [Mass/Vol] 11 mg/dL 7-18 [facility] Work Phone: Thin prep Papanicolaou smear with manual screeningon 11-12-2021 Thin prep Papanicolaou smear with manual screening 7 -15 [facility] Work Phone: Glucose,Bedsideon 10-07-2019 Glucose [Mass/Vol] 240 mg/dL High 70-100 [facility] Comment on above: Result Comment: Test performed by glucose meter. Results may be 10%-15% lower than serum/plasma values. (CLIA ID [id number]) Performed By: #### B MP3, HEMDF #### [facility] [address] [place] [address] POCT Glucoseon 10-07-2019 Glucose [Mass/Vol] 240 mg/dL High 70 - 100 mg/dL [place], [place] Comment on above: Test performed by gl ucose meter. Results may be 10%-15% lower than serum/plasma values. (CLIA ID [id number]) Interpretation and review of laboratory results Abnormal [place], [place] Test Performed by [facility], [address] [place] [id number] [place] [address] Basic Metabolic Panelon 12-0 Anion gap [Moles/Vol] 7 Normal [facility] Comment on above: Performed By: #### H EMDF, BMP3M, MG3 #### [address] [address] Calcium [Mass/Vol] 9.0 mg/dL Normal 8.4-10.4 [facility] Comment on above: Performed By: #### H EMDF, BMP3M, MG3 #### [address] [address] CO2 [Moles/Vol] 28 mmol/L Normal 22-30 [facility] Comment on above: Performed By: #### H EMDF, BMP3M, MG3 #### [address] [address] Creatinine [Mass/Vol] 0.73 mg/dL Normal 0.52-1.25 [facility] Comment on above: Performed By: #### H EMDF, BMP3M, MG3 #### [address] [address] GFR/1.73 sq M predicted among blacks MDRD (S/P/Bld) [Vol rate/Area] mL/min/{1.73_m2} Normal >60 [facility] Comment on above: Performed By: #### H EMDF, BMP3M, MG3 #### [facility] [address] [place] [address] GFR/1.73 sq M predicted among non-blacks MDRD (S/P/Bld) [Vol rate/Area] mL/min/{1.73_m2} Normal >60 [facility] Comment on above: Result Comment: Sour ce- MDRD equation with creatinine calibration to IDMS(NKDEP) eGFR not recommended for drug dose adjustment Performed By: #### H EMDF, BMP3M, MG3 #### [place] [address] [place] [address] Glucose [Mass/Vol] 194 mg/dL High 70-100 [facility] Comment on above: Performed By: #### H EMDF, BMP3M, MG3 #### [address] [place] [address] Urea nitrogen [Mass/Vol] 10 mg/dL Normal 7-20 [facility] Comment on above: Performed By: #### H EMDF, BMP3M, MG3 #### [address] [place] [address] Chloride [Moles/Vol] 105 mmol/L Normal 98-107 [facility] Comment on above: Performed By: #### H EMDF, BMP3M, MG3 #### [address] [place] [address] Potassium [Moles/Vol] 3.4 mmol/L Low 3.5-5.1 [facility] Comment on above: Performed By: #### H EMDF, BMP3M, MG3 #### [address] [place] [address] Sodium [Moles/Vol] 140 mmol/L Normal 135-145 [facility] Comment on above: Performed By: #### H EMDF, BMP3M, MG3 #### [address] [address] Basic Metabolic Panel w/ Ref pietro to MGon 10-06-2019 Anion gap [Moles/Vol] 7 mmol/L [place], [place] Calcium [Mass/Vol] 9.0 mg/dL 8.4 - 10. 4 mg/dL [place] Chloride [Moles/Vol] 105 mmol/L 98 - 10 7 mmol/L [place] CO2 [Moles/Vol] 28 mmol/L 22 - 30 mmol/L [place] Creatinine [Mass/Vol] 0.73 mg/dL 0.52 - 1.25 mg/dL [place] EGFR IF NonAfrican [place]e >60.0 >60 mL/min [place] Comment on above: Source- MDRD equatio n with creatinine calibration to IDMS(NKDEP) eGFR not recommended for drug dose adjustment GFR/1.73 sq M predicted among blacks MDRD (S/P/Bld) [Vol rate/Area] mL/min/{1.73_m2} >60 mL/min [place] Glucose [Mass/Vol] 194 mg/dL High 70 - 100 mg/dL [place] Potassium [Moles/Vol] 3.4 mmol/L Low 3.5 - 5.1 mmol/L [place] Sodium [Moles/Vol] 140 mmol/L 135 - 145 mmol/L [place] Urea nitrogen [Mass/Vol] 10 mg/dL 7 - 20 mg/dL [place] CBC auto differentialon Absolute Baso # 0.1 10*3/uL 0 - 0.2 10*3/uL [place] Absolute Neut # 4.4 10*3/uL 1.8 - 7 10*3/uL [place] Basophils/100 WBC (Bld) 0.8 % 0 - 2 % [place] Eosinophils (Bld) [#/Vol] 0.2 10*3/uL 0 - 0.5 10*3/uL [place] Eosinophils/100 WBC (Bld) 2.8 % 1 - 6 % [place] Erythrocyte distribution width (RBC) [Ratio] 13.7 % 11.5 - 14.5 % [place] Granulocytes/100 WBC (Bld) 60.0 % 40 - 80 % [place] Hematocrit (Bld) [Volume fraction] 44.1 % 40 - 52 % [place] Hemoglobin (Bld) [Mass/Vol] 15.5 g/dL 13 - 18 g/dL [place] Lymphocytes (Bld) [#/Vol] 2.3 10*3/uL 1 - 4.3 10*3/uL [place] Lymphocytes/100 WBC (Bld) 30.7 % 20 - 40 % [place] MCH (RBC) [Entitic mass] 29.2 pg 26 - 34 pg [place] MCHC (RBC) [Mass/Vol] 35.2 % 32 - 36 % [place] MCV (RBC) [Entitic vol] 82.9 fL 80 - 98 fL [place] Monocytes (Bld) [#/Vol] 0.4 10*3/uL 0 - 0.8 10*3/uL [place] Monocytes/100 WBC (Bld) 5.7 % 2 - 10 % [place] Platelet mean volume (Bld) [Entitic vol] 7.5 fL 7.4 - 10.4 fL [place] Platelets (Bld) [#/Vol] 196 10*3/uL 140 - 440 10*3/uL [place] RBC (Bld) [#/Vol] 5.32 10*6/uL 4.4 - 5.9 10*6/uL [place] WBC (Bld) [#/Vol] 7.4 10*3/uL 3.6 - 10.7 10*3/uL [place] Test Performed by [facility], [address] [place] [id number] [place] [address] Glucose,Bedsideon 10-06-2019 Glucose [Mass/Vol] 257 mg/dL High 70-100 [facility] Comment on above: Result Comment: Test performed by glucose meter. Results may be 10%-15% lower than serum/plasma values. (CLIA ID [id number]) Performed By: #### B MP3, HEMDF #### [facility] [address] [place] [address] Glucose [Mass/Vol] 288 mg/dL High 70-100 [facility] Comment on above: Result Comment: Test performed by glucose meter. Results may be 10%-15% lower than serum/plasma values. (CLIA ID [id number]) Performed By: #### B MP3, HEMDF #### [facility] [address] [place] [address] Glucose [Mass/Vol] 198 mg/dL High [address] [place] [address] Comment on above: Result Comment: Test performed by glucose meter. Results may be 10%-15% lower than serum/plasma values. (CLIA ID [id number]) Performed By: #### B GLU #### [facility] [address] [place] [address] Glucose [Mass/Vol] 226 mg/dL High [address] Comment on above: Result Comment: Test performed by glucose meter. Results may be 10%-15% lower than serum/plasma values. (CLIA ID [id number]) Performed By: #### B GLU #### [facility] [address] [place] [address] Glucose [Mass/Vol] 207 mg/dL High [address] [place] [address] Comment on above: Result Comment: Test performed by glucose meter. Results may be 10%-15% lower than serum/plasma values. (CLIA ID [id number]) Performed By: #### B GLU #### [facility] [address] [place] [address] Glucose [Mass/Vol] 200 mg/dL High [address] Comment on above: Result Comment: Test performed by glucose meter. Results may be 10%-15% lower than serum/plasma values. (CLIA ID [id number]) Performed By: #### B GLU #### [place] [address] [place], [place] Hemogram w/ Autodiffon 10-06 Abs Baso Cnt 0.1 10*3/uL Normal 0.0-0.2 [facility] Comment on above: Performed By: #### H EMDF, BMP3M, MG3 #### [place] [address] [place], [place] Abs Neutrophile Cnt 4.4 10*3/uL Normal 1.8-7.0 [facility] Comment on above: Performed By: #### H EMDF, BMP3M, MG3 #### [address] Basophils/100 WBC (Bld) 0.8 % Normal 0.0-2.0 [facility] Comment on above: Performed By: #### H EMDF, BMP3M, MG3 #### [place] [address] [place], [place] Eosinophils (Bld) [#/Vol] 0.2 10*3/uL Normal 0.0-0.5 [facility] Comment on above: Performed By: #### H EMDF, BMP3M, MG3 #### [address] Eosinophils/100 WBC (Bld) 2.8 % Normal 1.0-6.0 [facility] Comment on above: Performed By: #### H EMDF, BMP3M, MG3 #### [address] Erythrocyte distribution width (RBC) [Ratio] 13.7 % Normal 11.5-14.5 [facility] Comment on above: Performed By: #### H EMDF, BMP3M, MG3 #### [address] Granulocytes/100 WBC (Bld) 60.0 % Normal 40.0-80.0 [facility] Comment on above: Performed By: #### H EMDF, BMP3M, MG3 #### [address] Hematocrit (Bld) [Volume fraction] 44.1 % Normal 40.0-52.0 [facility] Comment on above: Performed By: #### H EMDF, BMP3M, MG3 #### [address] Hemoglobin (Bld) [Mass/Vol] 15.5 g/dL Normal 13.0-18.0 [facility] Comment on above: Performed By: #### H EMDF, BMP3M, MG3 #### [address] Lymphocytes (Bld) [#/Vol] 2.3 10*3/uL Normal 1.0-4.3 [facility] Comment on above: Performed By: #### H EMDF, BMP3M, MG3 #### [address] Lymphocytes/100 WBC (Bld) 30.7 % Normal 20.0-40.0 [facility] Comment on above: Performed By: #### H EMDF, BMP3M, MG3 #### [address] MCH (RBC) [Entitic mass] 29.2 pg Normal 26.0-34.0 [facility] Comment on above: Performed By: #### H EMDF, BMP3M, MG3 #### [address] MCHC (RBC) [Mass/Vol] 35.2 % Normal 32.0-36.0 [facility] Comment on above: Performed By: #### H EMDF, BMP3M, MG3 #### [address] MCV (RBC) [Entitic vol] 82.9 fL Normal 80.0-98.0 [facility] Comment on above: Performed By: #### H EMDF, BMP3M, MG3 #### [address] Monocytes (Bld) [#/Vol] 0.4 10*3/uL Normal 0.0-0.8 [facility] Comment on above: Performed By: #### H EMDF, BMP3M, MG3 #### [facility] [address], [place] Monocytes/100 WBC (Bld) 5.7 % Normal 2.0-10.0 [facility] Comment on above: Performed By: #### H EMDF, BMP3M, MG3 #### [place] [address] [place], [place] Platelet mean volume (Bld) [Entitic vol] 7.5 fL Normal 7.4-10.4 [facility] Comment on above: Performed By: #### H EMDF, BMP3M, MG3 #### [place] [address] [place], [place] Platelets (Bld) [#/Vol] 196 10*3/uL Normal 140-440 [facility] Comment on above: Performed By: #### H EMDF, BMP3M, MG3 #### [place] [address] [place], [place] RBC (Bld) [#/Vol] 5.32 10*6/uL Normal 4.40-5.90 [facility] Comment on above: Performed By: #### H EMDF, BMP3M, MG3 #### [place] [address] [place], [place] WBC (Bld) [#/Vol] 7.4 10*3/uL Normal 3.6-10.7 [facility] Comment on above: Performed By: #### H EMDF, BMP3M, MG3 #### [place] [address] [place], [place] Magnesiumon 10-06-2019 Magnesium [Mass/Vol] 1.5 mg/dL Low 1.6-2.3 [facility] Comment on above: Performed By: #### H EMDF, BMP3M, MG3 #### [place] [address] [place] [address] Magnesium [Mass/Vol] 1.5 mg/dL Low 1.6 - 2 .3 mg/dL [facility] [place] Otheron 10-06-2019 Interpretation and review of laboratory results Abnormal [facility] [place] Test Performed by [facility], [address] [place] [address] [facility] POCT Glucoseon 10-06-2019 Glucose [Mass/Vol] 257 mg/dL High 70 - 100 mg/dL [facility] [place] Comment on above: Test performed by gl ucose meter. Results may be 10%-15% lower than serum/plasma values. (CLIA ID [id number]) Interpretation and review of laboratory results Abnormal [facility] [place] Test Performed by [facility], [address] [place] [address] [facility] Glucose [Mass/Vol] 288 mg/dL High 70 - 100 mg/dL [facility] Comment on above: Test performed by gl ucose meter. Results may be 10%-15% lower than serum/plasma values. (CLIA ID [id number]) Interpretation and review of laboratory results Abnormal [facility] [place] Test Performed by [facility], [address] [place] [address] [facility] Glucose [Mass/Vol] 198 mg/dL High 70 - 100 mg/dL [facility] Comment on above: Test performed by gl ucose meter. Results may be 10%-15% lower than serum/plasma values. (CLIA ID [id number]) Interpretation and review of laboratory results Abnormal [facility] [place] Test Performed by [facility], [address] [place] [address] [facility] Glucose [Mass/Vol] 226 mg/dL High 70 - 100 mg/dL [facility] Comment on above: Test performed by gl ucose meter. Results may be 10%-15% lower than serum/plasma values. (CLIA ID [id number]) Interpretation and review of laboratory results Abnormal [facility] [place] Test Performed by [facility], [address] [place] [address] [facility], [place] Glucose [Mass/Vol] 207 mg/dL High 70 - 100 mg/dL [place] Comment on above: Test performed by gl ucose meter. Results may be 10%-15% lower than serum/plasma values. (CLIA ID [id number]) Interpretation and review of laboratory results Abnormal [facility] Test Performed by [facility], [address] [place] [address] [facility] Glucose [Mass/Vol] 200 mg/dL High 70 - 100 mg/dL [place] Comment on above: Test performed by gl ucose meter. Results may be 10%-15% lower than serum/plasma values. (CLIA ID [id number]) Interpretation and review of laboratory results Abnormal [facility], [place] Test Performed by [facility], [address] [place] [address] [place] Surgical Pathology [facility] Surgical Pathology [id number] [facility] PATHOLOGY AND LABORATORY MEDICINE [address] [place] [id number] FINAL SURGICAL PATHOLOGY REPORT ___ NAME: JERALD YODER : 1960 Sil[address] ZAMUDIO NO.: [id number] LOCATION: [id number] PROCEDURE 10/06/2019 DATE: SURGEON: BECCA RAMIREZ [...] characteristics determined by the clinical laboratories of [facility]. They have not been cleared by the [...] negativity on decalcified specimens. Professional Performing Location: [address] [address]. DEPARTMENT OF PATHOLOGY AND LABORATORY MEDICINE [place], [place] [address] Normal [facility] Basic Metabolic Panelon 12-0 Anion gap [Moles/Vol] 9 Normal [facility] Comment on above: Performed By: #### B MP3, HEMDF #### [facility] [address] [place] [address] Calcium [Mass/Vol] 9.3 mg/dL Normal 8.4-10.4 [facility] Comment on above: Performed By: #### B MP3, HEMDF #### [place] [address] [place], [place] CO2 [Moles/Vol] 24 mmol/L Normal 22-30 [facility] Comment on above: Performed By: #### B MP3, HEMDF #### [facility] [address] [place], [place] Glucose [Mass/Vol] 317 mg/dL High 70-100 [facility] Comment on above: Performed By: #### B MP3, HEMDF #### [place] [address] [place], [place] Urea nitrogen [Mass/Vol] 11 mg/dL Normal 7-20 [facility] Comment on above: Performed By: #### B MP3, HEMDF #### [place] [address] [place], [place] Creatinine [Mass/Vol] 0.71 mg/dL Normal 0.52-1.25 [facility] Comment on above: Performed By: #### B MP3, HEMDF #### [place] [address] [place], [place] GFR/1.73 sq M predicted among blacks MDRD (S/P/Bld) [Vol rate/Area] mL/min/{1.73_m2} Normal >60 [facility] Comment on above: Performed By: #### B MP3, HEMDF #### [place] [address] [place], [place] GFR/1.73 sq M predicted among non-blacks MDRD (S/P/Bld) [Vol rate/Area] mL/min/{1.73_m2} Normal >60 [facility] Comment on above: Result Comment: Sour ce- MDRD equation with creatinine calibration to IDMS(NKDEP) eGFR not recommended for drug dose adjustment Performed By: #### B MP3, HEMDF #### [place] [address] [place], [place] Chloride [Moles/Vol] 104 mmol/L Normal 98-107 [facility] Comment on above: Performed By: #### B MP3, HEMDF #### [facility] [address], [place] Potassium [Moles/Vol] 4.1 mmol/L Normal 3.5-5.1 [facility] Comment on above: Performed By: #### B MP3, HEMDF #### [facility] [address], [place] Sodium [Moles/Vol] 137 mmol/L Normal 135-145 [facility] Comment on above: Performed By: #### B MP3, HEMDF #### [facility] [address], [place] Anion gap [Moles/Vol] 9 mmol/L [place] Calcium [Mass/Vol] 9.3 mg/dL 8.4 - 10. 4 mg/dL [place] Chloride [Moles/Vol] 104 mmol/L 98 - 10 7 mmol/L [place] CO2 [Moles/Vol] 24 mmol/L 22 - 30 mmol/L [place] Creatinine [Mass/Vol] 0.71 mg/dL 0.52 - 1.25 mg/dL [place] EGFR IF NonAfrican [place]e >60.0 >60 mL/min [place] Comment on above: Source- MDRD equatio n with creatinine calibration to IDMS(NKDEP) eGFR not recommended for drug dose adjustment GFR/1.73 sq M predicted among blacks MDRD (S/P/Bld) [Vol rate/Area] mL/min/{1.73_m2} >60 mL/min [place] Glucose [Mass/Vol] 317 mg/dL High 70 - 100 mg/dL [place] Interpretation and review of laboratory results Abnormal [place] Potassium [Moles/Vol] 4.1 mmol/L 3.5 - 5.1 mmol/L [place] Sodium [Moles/Vol] 137 mmol/L 135 - 145 mmol/L [place] Urea nitrogen [Mass/Vol] 11 mg/dL 7 - 20 mg/dL [place] Test Performed by [facility], [address] [place] [address] [place] CBC Auto Differentialon 12-0 Absolute Baso # 0.0 10*3/uL 0 - 0.2 10*3/uL [place] Absolute Neut # 3.9 10*3/uL 1.8 - 7 10*3/uL [place] Basophils/100 WBC (Bld) 0.7 % 0 - 2 % [place] Eosinophils (Bld) [#/Vol] 0.2 10*3/uL 0 - 0.5 10*3/uL [place] Eosinophils/100 WBC (Bld) 2.6 % 1 - 6 % [place] Erythrocyte distribution width (RBC) [Ratio] 13.5 % 11.5 - 14.5 % [place] Granulocytes/100 WBC (Bld) 62.2 % 40 - 80 % [place] Hematocrit (Bld) [Volume fraction] 42.8 % 40 - 52 % [place] Hemoglobin (Bld) [Mass/Vol] 15.0 g/dL 13 - 18 g/dL [place] Lymphocytes (Bld) [#/Vol] 1.7 10*3/uL 1 - 4.3 10*3/uL [place] Lymphocytes/100 WBC (Bld) 27.4 % 20 - 40 % [place] MCH (RBC) [Entitic mass] 28.8 pg 26 - 34 pg [place] MCHC (RBC) [Mass/Vol] 35.1 % 32 - 36 % [place] MCV (RBC) [Entitic vol] 82.3 fL 80 - 98 fL [place], [place] Monocytes (Bld) [#/Vol] 0.4 10*3/uL 0 - 0.8 10*3/uL [place] Monocytes/100 WBC (Bld) 7.1 % 2 - 10 % [place] Platelet mean volume (Bld) [Entitic vol] 7.4 fL 7.4 - 10.4 fL [place] Platelets (Bld) [#/Vol] 162 10*3/uL 140 - 440 10*3/uL [place] RBC (Bld) [#/Vol] 5.20 10*6/uL 4.4 - 5.9 10*6/uL [place] WBC (Bld) [#/Vol] 6.2 10*3/uL 3.6 - 10.7 10*3/uL [place] Test Performed by [facility], [address] [place], [place] [address] [place] [address] Glucose,Bedsideon 10-05-2019 Glucose [Mass/Vol] 214 mg/dL High 70-100 [facility] Comment on above: Result Comment: Test performed by glucose meter. Results may be 10%-15% lower than serum/plasma values. (CLIA ID [id number]) Performed By: #### B GLU #### [place] [address] [place], [place] Hemogram w/ Autodiffon 10-05 Abs Baso Cnt 0.0 10*3/uL Normal 0.0-0.2 [facility] Comment on above: Performed By: #### B MP3, HEMDF #### [place] [address] [place], [place] Abs Neutrophile Cnt 3.9 10*3/uL Normal 1.8-7.0 [facility] Comment on above: Performed By: #### B MP3, HEMDF #### [address] Basophils/100 WBC (Bld) 0.7 % Normal 0.0-2.0 [facility] Comment on above: Performed By: #### B MP3, HEMDF #### [place] [address] [place] Eosinophils (Bld) [#/Vol] 0.2 10*3/uL Normal 0.0-0.5 [facility] Comment on above: Performed By: #### B MP3, HEMDF #### [facility] [address] [place] [address] Eosinophils/100 WBC (Bld) 2.6 % Normal 1.0-6.0 [facility] Comment on above: Performed By: #### B MP3, HEMDF #### [facility] [address] [place] [address] Erythrocyte distribution width (RBC) [Ratio] 13.5 % Normal 11.5-14.5 [facility] Comment on above: Performed By: #### B MP3, HEMDF #### [facility] [address] [place] [address] Granulocytes/100 WBC (Bld) 62.2 % Normal 40.0-80.0 [facility] Comment on above: Performed By: #### B MP3, HEMDF #### [place] [address] [place], [place] Hematocrit (Bld) [Volume fraction] 42.8 % Normal 40.0-52.0 [facility] Comment on above: Performed By: #### B MP3, HEMDF #### [facility] [address] [place] [address] Hemoglobin (Bld) [Mass/Vol] 15.0 g/dL Normal 13.0-18.0 [facility] Comment on above: Performed By: #### B MP3, HEMDF #### [facility] [address] [place] [address] Lymphocytes (Bld) [#/Vol] 1.7 10*3/uL Normal 1.0-4.3 [facility] Comment on above: Performed By: #### B MP3, HEMDF #### [facility] [address] [place] [address] Lymphocytes/100 WBC (Bld) 27.4 % Normal 20.0-40.0 [facility] Comment on above: Performed By: #### B MP3, HEMDF #### [facility] [address] [place] [address] MCH (RBC) [Entitic mass] 28.8 pg Normal 26.0-34.0 [facility] Comment on above: Performed By: #### B MP3, HEMDF #### [facility] [address] [place] MCHC (RBC) [Mass/Vol] 35.1 % Normal 32.0-36.0 [facility] Comment on above: Performed By: #### B MP3, HEMDF #### [facility] [address], [place] MCV (RBC) [Entitic vol] 82.3 fL Normal 80.0-98.0 [facility] Comment on above: Performed By: #### B MP3, HEMDF #### [place] [address] [place], [place] Monocytes (Bld) [#/Vol] 0.4 10*3/uL Normal 0.0-0.8 [facility] Comment on above: Performed By: #### B MP3, HEMDF #### [place] [address] [place], [place] Monocytes/100 WBC (Bld) 7.1 % Normal 2.0-10.0 [facility] Comment on above: Performed By: #### B MP3, HEMDF #### [place] [address] [place], [place] Platelet mean volume (Bld) [Entitic vol] 7.4 fL Normal 7.4-10.4 [facility] Comment on above: Performed By: #### B MP3, HEMDF #### [place] [address] [place], [place] Platelets (Bld) [#/Vol] 162 10*3/uL Normal 140-440 [facility] Comment on above: Performed By: #### B MP3, HEMDF #### [place] [address] [place], [place] RBC (Bld) [#/Vol] 5.20 10*6/uL Normal 4.40-5.90 [facility] Comment on above: Performed By: #### B MP3, HEMDF #### [place] [address] [place], [place] WBC (Bld) [#/Vol] 6.2 10*3/uL Normal 3.6-10.7 [facility] Comment on above: Performed By: #### B MP3, HEMDF #### [address] [address] POCT Glucoseon 10-05-2019 Glucose [Mass/Vol] 214 mg/dL High 70 - 100 mg/dL [place] Comment on above: Test performed by gl ucose meter. Results may be 10%-15% lower than serum/plasma values. (CLIA ID [id number]) Interpretation and review of laboratory results Abnormal [place] Test Performed by [facility], [address] [place] [address] [place], [place] Culture, urine Bacteria identified Cx Nom (U) Culture exhibits no growth. [facility] Work Phone: Laboratory - Microbiology an d Antimicrobial susceptibility Bacteria identified Cx Nom (Bld) No growth in 5 days. [facility] Work Phone: No Panel Information SARS-CoV-2 & FLU Antigen (Rapid) [facility] Work Phone: Vital Signs Date Time Vital Sign Value Performing Clinician Facility 05-03-2025 14:16-0400 Body temperature 98 [degF] No Primary Care Physician [facility] 05-03-2025 14:16-0400 Diastolic blood pressure 77 mm[Hg] No Primary Care Physician [facility] 05-03-2025 14:16-0400 Heart rate 78 /min No Primary Care Physician [facility] 05-03-2025 14:16-0400 Respiratory rate 16 /min No Primary Care Physician [facility] 05-03-2025 14:16-0400 SaO2% (BldA) [Mass fraction] 97 % No Primary Care Physician [facility] 05-03-2025 14:16-0400 Systolic blood pressure 119 mm[Hg] No Primary Care Physician [facility] 05-03-2025 11:30-0400 Body mass index (BMI) [Ratio] 25.2 kg/m2 No Primary Care Physician [facility] 05-03-2025 11:30-0400 Body weight 96.4 kg No Primary Care Physician [facility] 05-03-2025 11:28-0400 Body height 195.58 cm No Primary Care Physician [facility] 04-21-2025 13:00-0400 Body temperature 97.1 [degF] No Primary Care Physician [facility] 04-21-2025 13:00-0400 Diastolic blood pressure 66 mm[Hg] No Primary Care Physician [facility] 04-21-2025 13:00-0400 Heart rate 64 /min No Primary Care Physician [facility] 04-21-2025 13:00-0400 Respiratory rate 14 /min No Primary Care Physician [facility] 04-21-2025 13:00-0400 SaO2% (BldA) [Mass fraction] 99 % No Primary Care Physician [facility] 04-21-2025 13:00-0400 Systolic blood pressure 141 mm[Hg] No Primary Care Physician [facility] 04-21-2025 10:51-0400 Body height 195.58 cm No Primary Care Physician [facility] 03-26-2025 21:56-0400 Body mass index (BMI) [Ratio] 25.2 kg/m2 Dr. Pedro Krishnan DO Work Phone: [facility] 03-26-2025 21:56-0400 Body weight 96.[address] Pedro Krishnan DO Work Phone: [facility] 03-26-2025 20:09-0400 Body height 195.[address] Pedro Krishnan DO Work Phone: [facility] 03-26-2025 20:09-0400 Body temperature 97.6 [degF] Dr. Pedro Krishnan DO Work Phone: [facility] 03-26-2025 20:09-0400 Diastolic blood pressure 76 mm[Hg] Dr. Pedro Krishnan DO Work Phone: [facility] 03-26-2025 20:09-0400 Heart rate 71 /min Dr. Pedro Krishnan DO Work Phone: [facility] 03-26-2025 20:09-0400 Respiratory rate 18 /min Dr. Pedro Krishnan DO Work Phone: [facility] 03-26-2025 20:09-0400 SaO2% (BldA) [Mass fraction] 99 % Dr. Pedro Krishnan DO Work Phone: [facility] 03-26-2025 20:09-0400 Systolic blood pressure 146 mm[Hg] Dr. Pedro Krishnan DO Work Phone: [facility] 02-16-2025 07:41-0400 Body temperature 98 [degF] Dr. Linden Chavez DO Work Phone: [facility] 02-16-2025 07:41-0400 Diastolic blood pressure 98 mm[Hg] Dr. Linden Chavez DO Work Phone: [facility] 02-16-2025 07:41-0400 Heart rate 77 /min Dr. Linden Chavez DO Work Phone: [facility] 02-16-2025 07:41-0400 Respiratory rate 19 /min Dr. Linden Chavez DO Work Phone: [facility] 02-16-2025 07:41-0400 SaO2% (BldA) [Mass fraction] 99 % Dr. Linden Chavez DO Work Phone: [facility] 02-16-2025 07:41-0400 Systolic blood pressure 107 mm[Hg] Dr. Linden Chavez DO Work Phone: [facility] 02-16-2025 04:01-0400 Body height 195.[address] Linden Chavez DO Work Phone: [facility] 02-16-2025 04:01-0400 Body mass index (BMI) [Ratio] 24.7 kg/m2 Dr. Linden Chavez DO Work Phone: [facility] 02-16-2025 04:01-0400 Body weight 94.[address] Linden Chavez DO Work Phone: [facility] 12-27-2024 01:46-0500 Body temperature 97.9 [degF] Dr. Linden Chavez DO Work Phone: [facility] 12-27-2024 01:46-0500 Diastolic blood pressure 80 mm[Hg] Dr. Linden Chavez DO Work Phone: [facility] 12-27-2024 01:46-0500 Heart rate 82 /min Dr. Linden Chavez DO Work Phone: [facility] 12-27-2024 01:46-0500 Respiratory rate 18 /min Dr. Linden Chavez DO Work Phone: [facility] 12-27-2024 01:46-0500 SaO2% (BldA) [Mass fraction] 95 % Dr. Linden Chavez DO Work Phone: [facility] 12-27-2024 01:46-0500 Systolic blood pressure 129 mm[Hg] Dr. Linden Chavez DO Work Phone: [facility] 12-26-2024 23:51-0500 Body mass index (BMI) [Ratio] 25.4 kg/m2 Dr. Linden Chavez DO Work Phone: [facility] 12-26-2024 23:51-0500 Body weight 97.[address] Linden Chavez DO Work Phone: [facility] 12-20-2024 20:13-0500 Body temperature 97.8 [degF] Dr. Linden Chavez DO Work Phone: [facility] 12-20-2024 20:13-0500 Diastolic blood pressure 98 mm[Hg] Dr. Linden Chavez DO Work Phone: [facility] 12-20-2024 20:13-0500 Heart rate 98 /min Dr. Linden Chavez DO Work Phone: [facility] 12-20-2024 20:13-0500 Respiratory rate 18 /min Dr. Linden Chavez DO Work Phone: [facility] 12-20-2024 20:13-0500 SaO2% (BldA) [Mass fraction] 97 % Dr. Linden Chavez DO Work Phone: [facility] 12-20-2024 20:13-0500 Systolic blood pressure 130 mm[Hg] Dr. Linden Chavez DO Work Phone: [facility] 12-14-2024 09:29-0500 Body mass index (BMI) [Ratio] 27.02 kg/m2 Ion Moomaw PUMPER HEAD.ASPHALT PATCHER Work Phone: [facility] 12-14-2024 09:29-0500 Body temperature 97.11 [degF] Ion Moomaw PUMPER HEAD.[employer]PH[employer] PATCHER Work Phone: [facility] 12-14-2024 09:29-0500 Body weight 98.7 kg Ion Moomaw PUMPER HEAD.[employer]PH[employer] PATCHER Work Phone: [facility] 12-14-2024 09:29-0500 Diastolic blood pressure 70 mm[Hg] Ion Moomaw PUMPER HEAD.[employer]PH[employer] PATCHER Work Phone: [facility] 12-14-2024 09:29-0500 Heart rate 77 /min Ion Moomaw PUMPER HEAD.[employer]PH[employer] P[employer]ER Work Phone: [facility] 12-14-2024 09:29-0500 Respiratory rate 18 /min Ion Moomaw PUMPER HEAD.ASPH[employer] PATCHER Work Phone: [facility] 12-14-2024 09:29-0500 SaO2% (BldA) [Mass fraction] 97 % Ion Moomaw PUMPER HEAD.ASPH[employer] PATCHER Work Phone: [facility] 12-14-2024 09:29-0500 Systolic blood pressure 105 mm[Hg] Ion Moomaw PUMPER HEAD.ASPH[employer] PATCHER Work Phone: [facility] 12-08-2024 14:52-0500 Body temperature 97.4 [degF] Dr. Linden Chavez DO Work Phone: [facility] 12-08-2024 14:52-0500 Diastolic blood pressure 102 mm[Hg] Dr. Linden Chavez DO Work Phone: [facility] 12-08-2024 14:52-0500 Heart rate 86 /min Dr. Linden Chavez DO Work Phone: [facility] 12-08-2024 14:52-0500 Respiratory rate 18 /min Dr. Linden Chavez DO Work Phone: [facility] 12-08-2024 14:52-0500 SaO2% (BldA) [Mass fraction] 95 % Dr. Linden Chavez DO Work Phone: [facility] 12-08-2024 14:52-0500 Systolic blood pressure 160 mm[Hg] Dr. Linden Chavez DO Work Phone: [facility] 12-08-2024 12:21-0500 Body mass index (BMI) [Ratio] 26.4 kg/m2 Dr. Linden Chavez DO Work Phone: [facility] 12-08-2024 12:21-0500 Body weight 101.[address] Linden Chavez DO Work Phone: [facility] 11-27-2024 16:07-0500 Body temperature 97.9 [degF] Dr. Linden Chavez DO Work Phone: [facility] 11-27-2024 16:07-0500 Diastolic blood pressure 69 mm[Hg] Dr. Linden Chavez DO Work Phone: [facility] 11-27-2024 16:07-0500 Heart rate 88 /min Dr. Linden Chavez DO Work Phone: [facility] 11-27-2024 16:07-0500 Respiratory rate 18 /min Dr. Linden Chavez DO Work Phone: [facility] 11-27-2024 16:07-0500 SaO2% (BldA) [Mass fraction] 96 % Dr. Linden Chavez DO Work Phone: [facility] 11-27-2024 16:07-0500 Systolic blood pressure 138 mm[Hg] Dr. Linden Chavez DO Work Phone: [facility] 10-30-2024 03:11-0500 Body temperature 97.4 [degF] Dr. Linden Chavez DO Work Phone: [facility] 10-30-2024 03:11-0500 Diastolic blood pressure 89 mm[Hg] Dr. Linden Chavez DO Work Phone: [facility] 10-30-2024 03:11-0500 Heart rate 77 /min Dr. Linden Chavez DO Work Phone: [facility] 10-30-2024 03:11-0500 Respiratory rate 18 /min Dr. Linden Chavez DO Work Phone: [facility] 10-30-2024 03:11-0500 SaO2% (BldA) [Mass fraction] 95 % Dr. Linden Chavez DO Work Phone: [facility] 10-30-2024 03:11-0500 Systolic blood pressure 103 mm[Hg] Dr. Linden Chavez DO Work Phone: [facility] 10-19-2024 06:50-0500 Body temperature 98.3 [degF] Dr. Linden Chavez DO Work Phone: [facility] 10-19-2024 06:50-0500 Diastolic blood pressure 75 mm[Hg] Dr. Linden Chavez DO Work Phone: [facility] 10-19-2024 06:50-0500 Heart rate 75 /min Dr. Linden Chavez DO Work Phone: [facility] 10-19-2024 06:50-0500 Respiratory rate 18 /min Dr. Linden Chavez DO Work Phone: [facility] 10-19-2024 06:50-0500 SaO2% (BldA) [Mass fraction] 96 % Dr. Linden Chavez DO Work Phone: [facility] 10-19-2024 06:50-0500 Systolic blood pressure 107 mm[Hg] Dr. Linden Chavez DO Work Phone: [facility] 10-19-2024 03:58-0500 Body mass index (BMI) [Ratio] 25.9 kg/m2 Dr. Linden Chavez DO Work Phone: [facility] 10-19-2024 03:58-0500 Body weight 99.[address] Linden Chavez DO Work Phone: [facility] 05-10-2024 19:42-0400 Body mass index (BMI) [Ratio] 27.65 kg/m2 Rosa Quinones PUMPER HEAD.ASPHALT PATCHER Work Phone: [facility] 05-10-2024 19:42-0400 Body temperature 97.5 [degF] Rosa Quinones PUMPER HEAD.ASPHALT PATCHER Work Phone: [facility] 05-10-2024 19:42-0400 Body weight 101 kg Rosa Quinones PUMPER HEAD.ASPH[employer] P[employer]ER Work Phone: [facility] 05-10-2024 19:42-0400 Diastolic blood pressure 81 mm[Hg] Rosa Quinones PUMPER HEAD.ASPH[employer] P[employer]ER Work Phone: [facility] 05-10-2024 19:42-0400 Heart rate 72 /min Rosa Quinones PUMPER HEAD.[employer]PH[employer] P[employer]ER Work Phone: [facility] 05-10-2024 19:42-0400 Respiratory rate 20 /min Rosa Quinones PUMPER HEAD.ASPH[employer] P[employer]ER Work Phone: [facility] 05-10-2024 19:42-0400 SaO2% (BldA) [Mass fraction] 96 % Rosa Quinones PUMPER HEAD.ASPH[employer] P[employer]ER Work Phone: [facility] 05-10-2024 19:42-0400 Systolic blood pressure 135 mm[Hg] Rosa Quinones PUMPER HEAD.ASPH[employer] PATCHER Work Phone: [facility] 03-09-2024 02:47-0400 Body temperature 98.7 [degF] [facility] 03-09-2024 02:47-0400 Diastolic blood pressure 71 mm[Hg] [facility] 03-09-2024 02:47-0400 Heart rate 79 /min [facility] 03-09-2024 02:47-0400 Respiratory rate 16 /min [facility] 03-09-2024 02:47-0400 SaO2% (BldA) [Mass fraction] 99 % [facility] 03-09-2024 02:47-0400 Systolic blood pressure 136 mm[Hg] [facility] 03-09-2024 01:35-0400 Body height 195.58 cm [facility] 03-09-2024 01:35-0400 Body mass index (BMI) [Ratio] 26.1 kg/m2 [facility] 03-09-2024 01:35-0400 Body weight 100 kg [facility] 03-08-2024 10:04-0400 Body temperature 98.4 [degF] [facility] 03-08-2024 10:04-0400 Diastolic blood pressure 87 mm[Hg] [facility] 03-08-2024 10:04-0400 Heart rate 79 /min [facility] 03-08-2024 10:04-0400 Respiratory rate 17 /min [facility] 03-08-2024 10:04-0400 SaO2% (BldA) [Mass fraction] 96 % [facility] 03-08-2024 10:04-0400 Systolic blood pressure 142 mm[Hg] [facility] 03-08-2024 06:24-0400 Body height 195.58 cm [facility] 03-08-2024 06:24-0400 Body mass index (BMI) [Ratio] 27.3 kg/m2 [facility] 03-08-2024 06:24-0400 Body weight 104.7 kg [facility] 02-08-2024 00:47-0400 Body temperature 98.4 [degF] [facility] 02-08-2024 00:47-0400 Diastolic blood pressure 67 mm[Hg] [facility] 02-08-2024 00:47-0400 Heart rate 92 /min [facility] 02-08-2024 00:47-0400 Respiratory rate 16 /min [facility] 02-08-2024 00:47-0400 SaO2% (BldA) [Mass fraction] 95 % [facility] 02-08-2024 00:47-0400 Systolic blood pressure 114 mm[Hg] [facility] 02-07-2024 19:16-0400 Body height 195.58 cm [facility] 02-07-2024 19:16-0400 Body mass index (BMI) [Ratio] 26.7 kg/m2 [facility] 02-07-2024 19:16-0400 Body weight 102.42 kg [facility] 01-27-2024 06:12-0400 Body temperature 97.8 [degF] [facility] 01-27-2024 06:12-0400 Diastolic blood pressure 60 mm[Hg] [facility] 01-27-2024 06:12-0400 Heart rate 66 /min [facility] 01-27-2024 06:12-0400 Respiratory rate 18 /min [facility] 01-27-2024 06:12-0400 SaO2% (BldA) [Mass fraction] 98 % [facility] 01-27-2024 06:12-0400 Systolic blood pressure 100 mm[Hg] [facility] 01-26-2024 23:30-0400 Body height 195.58 cm [facility] 01-26-2024 23:30-0400 Body mass index (BMI) [Ratio] 27.5 kg/m2 [facility] 01-26-2024 23:30-0400 Body weight 105.2 kg [facility] 12-25-2023 11:45-0500 Body temperature 97.4 [degF] [facility] 12-25-2023 11:45-0500 Diastolic blood pressure 81 mm[Hg] [facility] 12-25-2023 11:45-0500 Heart rate 74 /min [facility] 12-25-2023 11:45-0500 Respiratory rate 16 /min [facility] 12-25-2023 11:45-0500 SaO2% (BldA) [Mass fraction] 97 % [facility] 12-25-2023 11:45-0500 Systolic blood pressure 147 mm[Hg] [facility] 12-25-2023 08:45-0500 Body height 195.58 cm [facility] 12-25-2023 08:45-0500 Body mass index (BMI) [Ratio] 26.7 kg/m2 [facility] 12-25-2023 08:45-0500 Body weight 102.3 kg [facility] 12-18-2023 17:53-0500 Body temperature 98.2 [degF] [facility] 12-18-2023 17:53-0500 Diastolic blood pressure 61 mm[Hg] [facility] 12-18-2023 17:53-0500 Heart rate 77 /min [facility] 12-18-2023 17:53-0500 Respiratory rate 18 /min [facility] 12-18-2023 17:53-0500 SaO2% (BldA) [Mass fraction] 97 % [facility] 12-18-2023 17:53-0500 Systolic blood pressure 109 mm[Hg] [facility] 12-18-2023 16:22-0500 Body mass index (BMI) [Ratio] 26.7 kg/m2 [facility] 12-18-2023 16:22-0500 Body weight 102.2 kg [facility] 12-18-2023 15:34-0500 Body height 195.58 cm [facility] 12-08-2023 14:42-0500 Respiratory rate 18 /min [facility] 12-08-2023 12:40-0500 Body height 195.58 cm [facility] 12-08-2023 12:40-0500 Body temperature 99.7 [degF] [facility] 12-08-2023 12:40-0500 Diastolic blood pressure 82 mm[Hg] [facility] 12-08-2023 12:40-0500 Heart rate 75 /min [facility] 12-08-2023 12:40-0500 SaO2% (BldA) [Mass fraction] 95 % [facility] 12-08-2023 12:40-0500 Systolic blood pressure 115 mm[Hg] [facility] 11-22-2023 17:37-0500 Diastolic blood pressure 74 mm[Hg] [facility] 11-22-2023 17:37-0500 Heart rate 71 /min [facility] 11-22-2023 17:37-0500 Respiratory rate 16 /min [facility] 11-22-2023 17:37-0500 SaO2% (BldA) [Mass fraction] 98 % [facility] 11-22-2023 17:37-0500 Systolic blood pressure 118 mm[Hg] [facility] 11-22-2023 14:21-0500 Body height 195.58 cm [facility] 11-22-2023 14:21-0500 Body mass index (BMI) [Ratio] 26.2 kg/m2 [facility] 11-22-2023 14:21-0500 Body temperature 97.6 [degF] [facility] 11-22-2023 14:21-0500 Body weight 100.4 kg [facility] 09-30-2023 23:40-0500 Body height 196.01 cm [facility] 09-30-2023 23:40-0500 Body mass index (BMI) [Ratio] 28.3 kg/m2 [facility] 09-30-2023 23:40-0500 Body temperature 97.7 [degF] [facility] 09-30-2023 23:40-0500 Body weight 108.86 kg [facility] 09-30-2023 23:40-0500 Diastolic blood pressure 77 mm[Hg] [facility] 09-30-2023 23:40-0500 Heart rate 77 /min [facility] 09-30-2023 23:40-0500 Respiratory rate 18 /min [facility] 09-30-2023 23:40-0500 SaO2% (BldA) [Mass fraction] 95 % [facility] 09-30-2023 23:40-0500 Systolic blood pressure 127 mm[Hg] [facility] 09-29-2023 23:39-0500 Diastolic blood pressure 83 mm[Hg] [facility] 09-29-2023 23:39-0500 Systolic blood pressure 132 mm[Hg] [facility] 09-29-2023 19:23-0500 Body height 195.58 cm [facility] 09-29-2023 19:23-0500 Body mass index (BMI) [Ratio] 28.4 kg/m2 [facility] 09-29-2023 19:23-0500 Body temperature 97.6 [degF] [facility] 09-29-2023 19:23-0500 Body weight 108.86 kg [facility] 09-29-2023 19:23-0500 Heart rate 82 /min [facility] 09-29-2023 19:23-0500 Respiratory rate 18 /min [facility] 09-29-2023 19:23-0500 SaO2% (BldA) [Mass fraction] 96 % [facility] 08-26-2023 05:07-0400 Body height 195.58 cm [facility] 08-26-2023 05:07-0400 Body mass index (BMI) [Ratio] 27.2 kg/m2 [facility] 08-26-2023 05:07-0400 Body temperature 97.3 [degF] [facility] 08-26-2023 05:07-0400 Body weight 104.3 kg [facility] 08-26-2023 05:07-0400 Diastolic blood pressure 80 mm[Hg] [facility] 08-26-2023 05:07-0400 Heart rate 78 /min [facility] 08-26-2023 05:07-0400 Respiratory rate 18 /min [facility] 08-26-2023 05:07-0400 SaO2% (BldA) [Mass fraction] 98 % [facility] 08-26-2023 05:07-0400 Systolic blood pressure 144 mm[Hg] [facility] 08-18-2023 15:51-0400 Body temperature 97.59 [degF] Jimmy Ramos APRN.ASPHALT PATCHER Work Phone: [facility] 08-18-2023 15:51-0400 Body weight 102.97 kg Jimmy Lynnfelicitas PUMPER HEAD.ASPHALT PATCHER Work Phone: [facility] 08-18-2023 15:51-0400 Diastolic blood pressure 80 mm[Hg] [facility] Work Phone: [facility] 08-18-2023 15:51-0400 Heart rate 74 /min Jimmy Lynnfelicitas PUMPER HEAD.ASPHALT PATCHER Work Phone: [facility] 08-18-2023 15:51-0400 Respiratory rate 20 /min [facility].[employer] P[employer] Work Phone: [facility] 08-18-2023 15:51-0400 SaO2% (BldA) [Mass fraction] 98 % [facility].[employer]PH[employer] P[employer] Work Phone: [facility] 08-18-2023 15:51-0400 Systolic blood pressure 127 mm[Hg] [facility].[employer]PH[employer] P[employer]ER Work Phone: [facility] 07-29-2023 13:51-0400 Diastolic blood pressure 101 mm[Hg] [facility] 07-29-2023 13:51-0400 Heart rate 86 /min [facility] 07-29-2023 13:51-0400 Respiratory rate 16 /min [facility] 07-29-2023 13:51-0400 SaO2% (BldA) [Mass fraction] 88 % [facility] 07-29-2023 13:51-0400 Systolic blood pressure 135 mm[Hg] [facility] 07-29-2023 09:08-0400 Body mass index (BMI) [Ratio] 28.2 kg/m2 [facility] 07-29-2023 09:08-0400 Body temperature 97.5 [degF] [facility] 07-29-2023 09:08-0400 Body weight 107.95 kg [facility] 05-12-2023 15:52-0400 Body height 195.58 cm [facility] 05-12-2023 15:52-0400 Body mass index (BMI) [Ratio] 28.4 kg/m2 [facility] 05-12-2023 15:52-0400 Body temperature 97.1 [degF] [facility] 05-12-2023 15:52-0400 Body weight 108.86 kg [facility] 05-12-2023 15:52-0400 Diastolic blood pressure 76 mm[Hg] [facility] 05-12-2023 15:52-0400 Heart rate 72 /min [facility] 05-12-2023 15:52-0400 Respiratory rate 14 /min [facility] 05-12-2023 15:52-0400 SaO2% (BldA) [Mass fraction] 94 % [facility] 05-12-2023 15:52-0400 Systolic blood pressure 125 mm[Hg] [facility] 03-07-2023 05:36-0400 Diastolic blood pressure 88 mm[Hg] [facility] 03-07-2023 05:36-0400 Heart rate 81 /min [facility] 03-07-2023 05:36-0400 Respiratory rate 18 /min [facility] 03-07-2023 05:36-0400 SaO2% (BldA) [Mass fraction] 96 % [facility] 03-07-2023 05:36-0400 Systolic blood pressure 141 mm[Hg] [facility] 03-07-2023 01:11-0400 Body height 187.96 cm [facility] 03-07-2023 01:11-0400 Body mass index (BMI) [Ratio] 30.2 kg/m2 [facility] 03-07-2023 01:11-0400 Body temperature 97.9 [degF] [facility] 03-07-2023 01:11-0400 Body weight 106.9 kg [facility] 01-18-2023 09:50-0400 Diastolic blood pressure 66 mm[Hg] [facility] 01-18-2023 09:50-0400 Heart rate 72 /min [facility] 01-18-2023 09:50-0400 Respiratory rate 15 /min [facility] 01-18-2023 09:50-0400 SaO2% (BldA) [Mass fraction] 98 % [facility] 01-18-2023 09:50-0400 Systolic blood pressure 143 mm[Hg] [facility] 01-18-2023 07:58-0400 Body height 195.58 cm [facility] 01-18-2023 07:58-0400 Body mass index (BMI) [Ratio] 27.2 kg/m2 [facility] 01-18-2023 07:58-0400 Body temperature 97.9 [degF] [facility] 01-18-2023 07:58-0400 Body weight 104.2 kg [facility] 12-11-2022 19:20-0500 Diastolic blood pressure 93 mm[Hg] [facility] 12-11-2022 19:20-0500 Heart rate 77 /min [facility] 12-11-2022 19:20-0500 Respiratory rate 16 /min [facility] 12-11-2022 19:20-0500 SaO2% (BldA) [Mass fraction] 96 % [facility] 12-11-2022 19:20-0500 Systolic blood pressure 154 mm[Hg] [facility] 12-11-2022 16:13-0500 Body height 195.58 cm [facility] 12-11-2022 16:13-0500 Body mass index (BMI) [Ratio] 27.7 kg/m2 [facility] 12-11-2022 16:13-0500 Body temperature 96.5 [degF] [facility] 12-11-2022 16:13-0500 Body weight 106.14 kg [facility] 12-10-2022 12:37-0500 Heart rate 78 /min [facility] 12-10-2022 12:37-0500 Respiratory rate 18 /min [facility] 12-10-2022 09:48-0500 Body height 195.58 cm [facility] 12-10-2022 09:48-0500 Body mass index (BMI) [Ratio] 27.8 kg/m2 [facility] 12-10-2022 09:48-0500 Body temperature 97.9 [degF] [facility] 12-10-2022 09:48-0500 Body weight 106.59 kg [facility] 12-10-2022 09:48-0500 Diastolic blood pressure 73 mm[Hg] [facility] 12-10-2022 09:48-0500 SaO2% (BldA) [Mass fraction] 99 % [facility] 12-10-2022 09:48-0500 Systolic blood pressure 109 mm[Hg] [facility] 11-25-2022 15:13-0500 Diastolic blood pressure 69 mm[Hg] [facility] 11-25-2022 15:13-0500 Heart rate 81 /min [facility] 11-25-2022 15:13-0500 Respiratory rate 16 /min [facility] 11-25-2022 15:13-0500 SaO2% (BldA) [Mass fraction] 97 % [facility] 11-25-2022 15:13-0500 Systolic blood pressure 137 mm[Hg] [facility] 11-25-2022 13:07-0500 Body height 195.58 cm [facility] 11-25-2022 13:07-0500 Body mass index (BMI) [Ratio] 27.7 kg/m2 [facility] 11-25-2022 13:07-0500 Body temperature 97.6 [degF] [facility] 11-25-2022 13:07-0500 Body weight 106.14 kg [facility] 10-30-2022 04:24-0500 Diastolic blood pressure 71 mm[Hg] [facility] 10-30-2022 04:24-0500 Heart rate 79 /min [facility] 10-30-2022 04:24-0500 Respiratory rate 16 /min [facility] 10-30-2022 04:24-0500 SaO2% (BldA) [Mass fraction] 95 % [facility] 10-30-2022 04:24-0500 Systolic blood pressure 115 mm[Hg] [facility] 10-29-2022 21:00-0500 Body mass index (BMI) [Ratio] 27.8 kg/m2 [facility] 10-29-2022 21:00-0500 Body temperature 97.3 [degF] [facility] 10-29-2022 21:00-0500 Body weight 106.59 kg [facility] 09-18-2022 10:21-0500 Body height 195.58 cm [facility] Work Phone: 09-18-2022 10:21-0500 Body mass index (BMI) [Ratio] 27.7 kg/m2 [facility] 09-18-2022 10:21-0500 Body temperature 97.4 [degF] [facility] 09-18-2022 10:21-0500 Body weight 106.14 kg [facility] 09-18-2022 10:21-0500 Diastolic blood pressure 94 mm[Hg] [facility] 09-18-2022 10:21-0500 Heart rate 77 /min [facility] 09-18-2022 10:21-0500 Respiratory rate 16 /min [facility] 09-18-2022 10:21-0500 SaO2% (BldA) [Mass fraction] 99 % [facility] 09-18-2022 10:21-0500 Systolic blood pressure 106 mm[Hg] [facility] 08-07-2022 22:15-0400 Diastolic blood pressure 70 mm[Hg] [facility] 08-07-2022 22:15-0400 Heart rate 83 /min [facility] 08-07-2022 22:15-0400 Respiratory rate 16 /min [facility] 08-07-2022 22:15-0400 SaO2% (BldA) [Mass fraction] 98 % [facility] 08-07-2022 22:15-0400 Systolic blood pressure 120 mm[Hg] [facility] 08-07-2022 18:39-0400 Body height 195.58 cm [facility] Work Phone: 08-07-2022 18:39-0400 Body mass index (BMI) [Ratio] 28.4 kg/m2 [facility] 08-07-2022 18:39-0400 Body temperature 97.8 [degF] [facility] 08-07-2022 18:39-0400 Body weight 108.86 kg [facility] 07-03-2022 00:40-0400 Heart rate 77 /min No Primary Care Physician [facility] Work Phone: 07-03-2022 00:40-0400 Respiratory rate 18 /min No Primary Care Physician [facility] Work Phone: 07-02-2022 20:57-0400 Body height 195.58 cm No Primary Care Physician [facility] Work Phone: 07-02-2022 20:57-0400 Body mass index (BMI) [Ratio] 27.8 kg/m2 No Primary Care Physician [facility] Work Phone: 07-02-2022 20:57-0400 Body temperature 97.8 [degF] No Primary Care Physician [facility] Work Phone: 07-02-2022 20:57-0400 Body weight 106.59 kg No Primary Care Physician [facility] Work Phone: 07-02-2022 20:57-0400 Diastolic blood pressure 97 mm[Hg] No Primary Care Physician [facility] Work Phone: 07-02-2022 20:57-0400 SaO2% (BldA) [Mass fraction] 99 % No Primary Care Physician [facility] Work Phone: 07-02-2022 20:57-0400 Systolic blood pressure 140 mm[Hg] No Primary Care Physician [facility] Work Phone: 05-26-2022 01:37-0400 Body height 195.58 cm No Primary Care Physician [facility] Work Phone: 05-26-2022 01:37-0400 Body mass index (BMI) [Ratio] 27.7 kg/m2 No Primary Care Physician [facility] Work Phone: 05-26-2022 01:37-0400 Body temperature 97.1 [degF] No Primary Care Physician [facility] Work Phone: 05-26-2022 01:37-0400 Body weight 106.14 kg No Primary Care Physician [facility] Work Phone: 05-26-2022 01:37-0400 Diastolic blood pressure 82 mm[Hg] No Primary Care Physician [facility] Work Phone: 05-26-2022 01:37-0400 Heart rate 79 /min No Primary Care Physician [facility] Work Phone: 05-26-2022 01:37-0400 Respiratory rate 16 /min No Primary Care Physician [facility] Work Phone: 05-26-2022 01:37-0400 SaO2% (BldA) [Mass fraction] 98 % No Primary Care Physician [facility] Work Phone: 05-26-2022 01:37-0400 Systolic blood pressure 137 mm[Hg] No Primary Care Physician [facility] Work Phone: 04-26-2022 18:38-0400 Heart rate 76 /min No Primary Care Physician [facility] Work Phone: 04-26-2022 18:38-0400 Respiratory rate 17 /min No Primary Care Physician [facility] Work Phone: 04-26-2022 18:38-0400 SaO2% (BldA) [Mass fraction] 97 % No Primary Care Physician [facility] Work Phone: 04-26-2022 14:33-0400 Body temperature 98 [degF] No Primary Care Physician [facility] Work Phone: 04-26-2022 14:33-0400 Diastolic blood pressure 74 mm[Hg] No Primary Care Physician [facility] Work Phone: 04-26-2022 14:33-0400 Heart rate 71 /min No Primary Care Physician [facility] Work Phone: 04-26-2022 14:33-0400 Respiratory rate 18 /min No Primary Care Physician [facility] Work Phone: 04-26-2022 14:33-0400 SaO2% (BldA) [Mass fraction] 99 % No Primary Care Physician [facility] Work Phone: 04-26-2022 14:33-0400 Systolic blood pressure 117 mm[Hg] No Primary Care Physician [facility] Work Phone: 04-26-2022 14:06-0400 Body height 195.58 cm No Primary Care Physician [facility] Work Phone: 04-26-2022 14:06-0400 Body mass index (BMI) [Ratio] 28.9 kg/m2 No Primary Care Physician [facility] Work Phone: 04-26-2022 14:06-0400 Body weight 110.67 kg No Primary Care Physician [facility] Work Phone: 03-20-2022 14:23-0400 Body temperature 99 [degF] No Primary Care Physician [facility] Work Phone: 03-20-2022 14:19-0400 Diastolic blood pressure 97 mm[Hg] No Primary Care Physician [facility] Work Phone: 03-20-2022 14:19-0400 Heart rate 70 /min No Primary Care Physician [facility] Work Phone: 03-20-2022 14:19-0400 Respiratory rate 16 /min No Primary Care Physician [facility] Work Phone: 03-20-2022 14:19-0400 SaO2% (BldA) [Mass fraction] 97 % No Primary Care Physician [facility] Work Phone: 03-20-2022 14:19-0400 Systolic blood pressure 156 mm[Hg] No Primary Care Physician [facility] Work Phone: 03-20-2022 12:29-0400 Body height 195.58 cm No Primary Care Physician [facility] Work Phone: 03-20-2022 12:29-0400 Body weight 98.6 kg No Primary Care Physician [facility] Work Phone: 03-19-2022 23:34-0400 Body mass index (BMI) [Ratio] 25.7 kg/m2 No Primary Care Physician [facility] Work Phone: 03-19-2022 23:08-0400 Body temperature 98.1 [degF] No Primary Care Physician [facility] Work Phone: 03-19-2022 23:08-0400 Diastolic blood pressure 89 mm[Hg] No Primary Care Physician [facility] Work Phone: 03-19-2022 23:08-0400 Heart rate 98 /min No Primary Care Physician [facility] Work Phone: 03-19-2022 23:08-0400 Respiratory rate 14 /min No Primary Care Physician [facility] Work Phone: 03-19-2022 23:08-0400 SaO2% (BldA) [Mass fraction] 97 % No Primary Care Physician [facility] Work Phone: 03-19-2022 23:08-0400 Systolic blood pressure 126 mm[Hg] No Primary Care Physician [facility] Work Phone: 03-19-2022 17:31-0400 Body height 195.58 cm No Primary Care Physician [facility] Work Phone: 03-19-2022 17:31-0400 Body mass index (BMI) [Ratio] 27.7 kg/m2 No Primary Care Physician [facility] Work Phone: 03-19-2022 17:31-0400 Body weight 106.14 kg No Primary Care Physician [facility] Work Phone: 03-02-2022 18:53-0400 Body height 195.58 cm No Primary Care Physician [facility] Work Phone: 03-02-2022 18:53-0400 Body mass index (BMI) [Ratio] 27.7 kg/m2 No Primary Care Physician [facility] Work Phone: 03-02-2022 18:53-0400 Body temperature 97.2 [degF] No Primary Care Physician [facility] Work Phone: 03-02-2022 18:53-0400 Body weight 106.14 kg No Primary Care Physician [facility] Work Phone: 03-02-2022 18:53-0400 Diastolic blood pressure 96 mm[Hg] No Primary Care Physician [facility] Work Phone: 03-02-2022 18:53-0400 Heart rate 82 /min No Primary Care Physician [facility] Work Phone: 03-02-2022 18:53-0400 Respiratory rate 15 /min No Primary Care Physician [facility] Work Phone: 03-02-2022 18:53-0400 SaO2% (BldA) [Mass fraction] 98 % No Primary Care Physician [facility] Work Phone: 03-02-2022 18:53-0400 Systolic blood pressure 145 mm[Hg] No Primary Care Physician [facility] Work Phone: 01-31-2022 09:08-0400 Diastolic blood pressure 77 mm[Hg] No Primary Care Physician [facility] Work Phone: 01-31-2022 09:08-0400 Heart rate 62 /min No Primary Care Physician [facility] Work Phone: 01-31-2022 09:08-0400 Respiratory rate 15 /min No Primary Care Physician [facility] Work Phone: 01-31-2022 09:08-0400 SaO2% (BldA) [Mass fraction] 98 % No Primary Care Physician [facility] Work Phone: 01-31-2022 09:08-0400 Systolic blood pressure 124 mm[Hg] No Primary Care Physician [facility] Work Phone: 01-31-2022 08:10-0400 Body mass index (BMI) [Ratio] 28.9 kg/m2 No Primary Care Physician [facility] Work Phone: 01-31-2022 08:10-0400 Body temperature 97.8 [degF] No Primary Care Physician [facility] Work Phone: 01-31-2022 08:10-0400 Body weight 110.67 kg No Primary Care Physician [facility] Work Phone: 01-08-2022 11:14-0500 Diastolic blood pressure 91 mm[Hg] No Primary Care Physician [facility] Work Phone: 01-08-2022 11:14-0500 Heart rate 78 /min No Primary Care Physician [facility] Work Phone: 01-08-2022 11:14-0500 Respiratory rate 16 /min No Primary Care Physician [facility] Work Phone: 01-08-2022 11:14-0500 Systolic blood pressure 136 mm[Hg] No Primary Care Physician [facility] Work Phone: 01-08-2022 10:14-0500 Diastolic blood pressure 91 mm[Hg] No Primary Care Physician [facility] Work Phone: 01-08-2022 10:14-0500 Heart rate 78 /min No Primary Care Physician [facility] Work Phone: 01-08-2022 10:14-0500 Respiratory rate 16 /min No Primary Care Physician [facility] Work Phone: 01-08-2022 10:14-0500 Systolic blood pressure 136 mm[Hg] No Primary Care Physician [facility] Work Phone: 01-08-2022 07:05-0500 Body mass index (BMI) [Ratio] 25.9 kg/m2 No Primary Care Physician [facility] Work Phone: 01-08-2022 07:05-0500 Body temperature 98.6 [degF] No Primary Care Physician [facility] Work Phone: 01-08-2022 07:05-0500 Body weight 99.4 kg No Primary Care Physician [facility] Work Phone: 01-08-2022 07:05-0500 SaO2% (BldA) [Mass fraction] 97 % No Primary Care Physician [facility] Work Phone: 01-08-2022 06:05-0500 Body mass index (BMI) [Ratio] 25.9 kg/m2 No Primary Care Physician [facility] Work Phone: 01-08-2022 06:05-0500 Body temperature 98.6 [degF] No Primary Care Physician [facility] Work Phone: 01-08-2022 06:05-0500 Body weight 99.4 kg No Primary Care Physician [facility] Work Phone: 01-08-2022 06:05-0500 SaO2% (BldA) [Mass fraction] 97 % No Primary Care Physician [facility] Work Phone: 01-07-2022 08:31-0500 Body temperature 98 [degF] No Primary Care Physician [facility] Work Phone: 01-07-2022 08:31-0500 Diastolic blood pressure 82 mm[Hg] No Primary Care Physician [facility] Work Phone: 01-07-2022 08:31-0500 Heart rate 70 /min No Primary Care Physician [facility] Work Phone: 01-07-2022 08:31-0500 Respiratory rate 16 /min No Primary Care Physician [facility] Work Phone: 01-07-2022 08:31-0500 SaO2% (BldA) [Mass fraction] 95 % No Primary Care Physician [facility] Work Phone: 01-07-2022 08:31-0500 Systolic blood pressure 138 mm[Hg] No Primary Care Physician [facility] Work Phone: 01-07-2022 07:31-0500 Body temperature 98 [degF] No Primary Care Physician [facility] Work Phone: 01-07-2022 07:31-0500 Diastolic blood pressure 82 mm[Hg] No Primary Care Physician [facility] Work Phone: 01-07-2022 07:31-0500 Heart rate 70 /min No Primary Care Physician [facility] Work Phone: 01-07-2022 07:31-0500 Respiratory rate 16 /min No Primary Care Physician [facility] Work Phone: 01-07-2022 07:31-0500 SaO2% (BldA) [Mass fraction] 95 % No Primary Care Physician [facility] Work Phone: 01-07-2022 07:31-0500 Systolic blood pressure 138 mm[Hg] No Primary Care Physician [facility] Work Phone: 01-05-2022 10:48-0500 Body weight 97.25 kg No Primary Care Physician [facility] Work Phone: 01-05-2022 09:55-0500 Body mass index (BMI) [Ratio] 25.4 kg/m2 No Primary Care Physician [facility] Work Phone: 01-05-2022 09:48-0500 Body weight 97.25 kg No Primary Care Physician [facility] Work Phone: 01-05-2022 08:55-0500 Body mass index (BMI) [Ratio] 25.4 kg/m2 No Primary Care Physician [facility] Work Phone: 11-12-2021 20:28-0500 Diastolic blood pressure 81 mm[Hg] No Primary Care Physician [facility] Work Phone: 11-12-2021 20:28-0500 Heart rate 71 /min No Primary Care Physician [facility] Work Phone: 11-12-2021 20:28-0500 Systolic blood pressure 128 mm[Hg] No Primary Care Physician [facility] Work Phone: 11-12-2021 17:55-0500 Body temperature 97.3 [degF] No Primary Care Physician [facility] Work Phone: 11-12-2021 17:55-0500 Respiratory rate 15 /min No Primary Care Physician [facility] Work Phone: 11-12-2021 17:55-0500 SaO2% (BldA) [Mass fraction] 96 % No Primary Care Physician [facility] Work Phone: 11-12-2021 17:53-0500 Body mass index (BMI) [Ratio] 28.2 kg/m2 No Primary Care Physician [facility] Work Phone: 11-12-2021 17:53-0500 Body weight 107.95 kg No Primary Care Physician [facility] Work Phone: 11-09-2021 08:52-0500 Diastolic blood pressure 92 mm[Hg] No Primary Care Physician [facility] Work Phone: 11-09-2021 08:52-0500 Heart rate 74 /min No Primary Care Physician [facility] Work Phone: 11-09-2021 08:52-0500 SaO2% (BldA) [Mass fraction] 95 % No Primary Care Physician [facility] Work Phone: 11-09-2021 08:52-0500 Systolic blood pressure 138 mm[Hg] No Primary Care Physician [facility] Work Phone: 11-09-2021 06:25-0500 Body mass index (BMI) [Ratio] 27.8 kg/m2 No Primary Care Physician [facility] Work Phone: 11-09-2021 06:25-0500 Body temperature 96.9 [degF] No Primary Care Physician [facility] Work Phone: 11-09-2021 06:25-0500 Body weight 106.59 kg No Primary Care Physician [facility] Work Phone: 11-09-2021 06:25-0500 Respiratory rate 18 /min No Primary Care Physician [facility] Work Phone: 10-07-2019 07:48-0500 Body Temperature 96.1 [degF] Jocelyn Martinez [facility] [place], [place] 10-07-2019 07:48-0500 BP Diastolic 90 mm[Hg] Jocelyn Valentin [place], [place] 10-07-2019 07:48-0500 BP Systolic 139 mm[Hg] Jocelyn Valentin [place] 10-07-2019 07:48-0500 Pulse (Heart Rate) 72 /min Jocelyn Valentin [place] 10-07-2019 07:48-0500 Pulse Oximetry 95 % Jocelyn Valentin [place] 10-07-2019 07:48-0500 Respiratory Rate 16 /min Jocelyn Valentin [place], [place] 10-07-2019 06:06-0500 BMI (Body Mass Index) 26.7 kg/m2 Jocelyn Martinez [place], [place] 10-07-2019 06:06-0500 Body weight 102.15 kg Jocelyn Valentin [place] 10-06-2019 12:03-0500 Height 195.6 cm Jocelyn Valentin [place] Encounters Encounter Date Encounter Type Care Provider Facility Start: 05-03-2025 End: 05-03-2025 Emergency department patient visit No Primary Care Physician -Emergency Department Work Phone: Start: 04-26-2025 End: 04-26-2025 ambulatory No Primary Care Physician -Laboratory Specimen Start: 04-26-2025 End: 04-26-[address] Linden Chavez DO -Laboratory Specimen Work Phone: Start: 04-26-2025 End: 04-26-2025 [facility]ulatory [facility] Facility:[facility] Start: 04-23-2025 End: 04-23-2025 ambulatory No Primary Care Physician -Laboratory Mike Mendez YAIMA Start: 04-23-2025 End: 04-23-[address] Linden Chavez DO -Laboratory Mike Mendez HLYAIMA Start: 04-23-2025 End: 04-23-2025 ambulatory [facility] Facility:[facility] Start: 04-21-2025 End: 04-21-2025 Emergency department patient visit No Primary Care Physician -Emergency Department Work Phone: Start: 03-26-2025 End: 03-26-2025 Emergency department patient visit Dr. Pedro Krishnan DO Work Phone: -Emergency Department Work Phone: Start: 02-16-2025 End: 02-16-2025 Dr. Linden Chavez DO Work Phone: -Emergency Department Work Phone: Start: 02-16-2025 End: 02-16-2025 Emergency department patient visit Dr. Linden Chavez DO Work Phone: [facility] Work Phone: Start: 12-26-2024 End: 12-27-2024 [...] Work Phone: Start: 12-14-2024 End: 12-14-2024 ambulatory Facility:[facility] Start: 12-14-2024 End: 12-14-2024 Patient encounter procedure Ion Alfaro [employer] Work Phone: [facility] Comment on above: Eustachian tube dysf [...] 10-29-2024 End: 10-30-2024 Emergency department patient visit [facility] Facility:[facility] Start: 10-19-2024 End: 10-19-2024 Dr. Live Ashley MD -Emergency Departm ent Work Phone: Start: 10-19-2024 End: 10-19-2024 Emergency department patient visit [facility] Facility:[facility] Start: 08-10-2024 End: 08-10-2024 Emergency department patient visit [facility] Facility:[facility] Start: 05-27-2024 End: 05-28-2024 Emergency department patient visit [facility] Facility:[facility] Start: 05-18-2024 End: 05-18-2024 Emergency department patient visit [facility] Facility:[facility] Start: 05-10-2024 End: 05-10-2024 ambulatory Facility:[facility] Start: 05-10-2024 End: 05-10-2024 Patient encounter procedure Rosa Quinones [employer] Work Phone: [facility] Comment on above: Bilateral impacted c erumen (Primary Dx) Start: 03-09-2024 End: 03-09-2024 Emergency department patient visit [facility]-Emergency Department Work Phone: Start: 03-08-2024 End: 03-08-2024 Emergency department patient visit [facility]Emergency Department Work Phone: Start: 02-07-2024 End: 02-08-2024 Emergency department patient visit [facility]-Emergency Department Work Phone: Start: 01-26-2024 End: 01-27-2024 Emergency department patient visit [facility]Emergency Department Work Phone: Start: 01-05-2024 End: 01-05-2024 ambulatory [facility] Work Phone: Start: 01-05-2024 End: 01-05-2024 Patient encounter procedure [facility] Start: 12-25-2023 End: 12-25-2023 Emergency department patient visit [facility]-Emergency Department Work Phone: Start: 12-18-2023 End: 12-18-2023 Emergency department patient visit [facility]Emergency Department Work Phone: Start: 12-08-2023 End: 12-08-2023 Emergency department patient visit [facility]Emergency Department Work Phone: Start: 11-22-2023 End: 11-22-2023 Emergency department patient visit [facility]Emergency Department Work Phone: Start: 09-30-2023 End: 10-01-2023 Emergency department patient visit [facility]Emergency Department Work Phone: Start: 09-29-2023 End: 09-29-2023 Emergency department patient visit [facility]Emergency Department Work Phone: Start: 08-26-2023 End: 08-26-2023 Emergency department patient visit [facility]Emergency Department Work Phone: Start: 08-18-2023 End: 08-18-2023 Office outpatient visit 15 minutes Jimmy Ramos APRN.CNP Work Phone: [facility] Comment on above: Bilateral impacted c erumen (Primary Dx) Start: 07-29-2023 End: 07-29-2023 Emergency department patient visit [facility]Emergency Department Work Phone: Start: 05-12-2023 End: 05-12-2023 Emergency department patient visit [facility]Emergency Department Work Phone: Start: 03-07-2023 End: 03-07-2023 Emergency department patient visit [facility]Emergency Department Start: 01-18-2023 End: 01-18-2023 Emergency department patient visit [facility]Emergency Department Start: 12-15-2022 End: 12-15-2022 ambulatory [facility] Work Phone: Start: 12-15-2022 End: 12-15-2022 Patient encounter procedure [facility], Mike Andrea [facility] Start: 12-11-2022 End: 12-11-2022 Emergency department patient visit [facility]Emergency Department Start: 12-10-2022 End: 12-10-2022 Emergency department patient visit [facility]gency [facility] Start: 11-25-2022 End: 11-25-2022 Emergency department patient visit [facility]Emergency Department Start: 10-29-2022 End: 10-30-2022 Emergency department patient visit [facility]Emergency Department Start: 09-18-2022 End: 09-18-2022 Emergency department patient visit [facility]Emergency Department Start: 08-07-2022 End: 08-07-2022 Emergency department patient visit [facility]Emergency Department Start: 07-02-2022 End: 07-03-2022 Emergency department patient visit No Primary Care Physician [facility]Emergency Department Start: 05-26-2022 End: 05-26-2022 Emergency department patient visit No Primary Care Physician [facility]Emergency Department Start: 04-26-2022 End: 04-26-2022 Emergency department patient visit No Primary Care Physician [facility]Emergency Department Start: 03-20-2022 Non-patient / Non-visit No Kiersten vasquez Care Physician [facility] Start: 03-19-2022 End: 03-20-2022 Evaluation and management of inpatient No Primary Care Physician [facility] 3 Start: 03-19-2022 Non-patient / Non-visit No Kiersten vasquez Care Physician [facility] Start: 03-02-2022 End: 03-02-2022 Emergency department patient visit No Primary Care Physician [facility]Emergency [facility] Start: 01-31-2022 End: 01-31-2022 Emergency department patient visit No Primary Care Physician [facility] Start: 01-08-2022 End: 01-08-2022 Emergency department patient visit No Primary Care Physician [facility]Emergency Department Start: 01-07-2022 Non-patient / Non-visit No Kiersten vasquez Care Physician [facility] Inpatient [facility]icians Start: 01-06-2022 Non-patient / Non-visit No Kiersten vasquez Care Physician [facility] Start: 01-06-2022 Non-patient / Non-visit No Kiersten vasquez Care Physician [facility] Start: 01-05-2022 Non-patient / Non-visit No Kiersten vasquez Care Physician [facility] Start: 01-05-2022 Non-patient / Non-visit No Kiersten vasquez Care Physician [facility] Start: 01-04-2022 Non-patient / Non-visit No Kiersten vasquez Care Physician [facility] Start: 01-04-2022 End: 01-07-2022 Evaluation and management of inpatient No Primary Care Physician [facility] 3 Start: 11-12-2021 End: 11-12-2021 Emergency department patient visit No Primary Care Physician [facility]Emergency Department Start: 11-09-2021 End: 11-09-2021 Emergency department patient visit No Primary Care Physician [facility]Emergency Department Start: 10-05-2019 End: 10-07-2019 Evaluation and management of inpatient Jocelyn Valentin Work Phone: [phone] Procedures Date Procedure Procedure Detail Performing Clinician Start: 05-03-2025 Urnls dip stick/tabl et reagent auto microscopy No Primary Care Physician Start: 05-03-2025 Estimated creatinine clearance No Primary Care Physician Start: 04-26-2025 Urine microalbumin/creatinine ratio measurement No [...] HCV Quant by PCR testing - HCVPCR #[id number] Non Reactive: < 0.8 Equivocal: >/= 0.8 [...] stick/tabl et reagent auto microscopy Dr. Pedro Krisnhan DO Work Phone: Start: 11-27-2024 Measurement of [...] Myrick Work Phone: Start: 11-21-2013 Colonoscopy [facility] [employer] Work Phone: Start: 06-22-2011 History of placement of stent for coronary artery disease S/P coronary artery stent placement Jimmy Rachel [employer] Work Phone: Bacteria identified in Blood by [...] DTaP,Tdap,Td Vaccine (2 - Td or Tdap) [facility] Start: 12-14-2025 BP Controlled (<130/80) BP Controlled (<130/80) [facility] Start: 05-03-2025 Bacteria identified in Urine by Culture Urine Culture [facility] Start: 05-03-2025 End: 05-03-2025 [facility] Start: 04-21-2025 [facility] Start: 03-26-2025 [facility] Start: 02-16-2025 End: 02-16-2025 [facility] Start: 12-27-2024 [facility] Start: 12-20-2024 [facility] Start: 12-08-2024 [facility] Start: 11-27-2024 End: 11-27-2024 [facility] Start: 10-30-2024 [facility] Start: 10-19-2024 [facility] Start: 07-01-2024 Covid-19 Vaccine ( season) Covid-19 Vaccine ( season) [facility] Start: 07-01-2024 Influenza vaccination Influenza Vaccine (#1) [facility] Start: 03-09-2024 [facility] Start: 03-08-2024 [facility] Start: 02-08-2024 [facility] Start: 01-27-2024 [facility] Start: 12-25-2023 End: 12-25-2023 [facility] Start: 12-18-2023 [facility] Start: 12-08-2023 [facility] Start: 11-22-2023 [facility] Start: 10-31-2023 Behavioral Health Screening Behavioral Health Screening [facility] Start: 10-01-2023 [facility] Start: 09-29-2023 [facility] Start: 09-29-2023 [facility] Start: 08-26-2023 [facility] Start: 07-01-2023 Covid-19 Vaccine ( season) Covid-19 Vaccine ( season) [facility] Start: 07-01-2023 Influenza vaccination Influenza Vaccine (#1) [facility] Start: 01-18-2023 Enteric precautions [facility] Start: 10-31-2022 Depression Assessment Depression Assessment [facility] Start: 10-29-2022 [facility] Start: 08-07-2022 Iv infusion hydration initial 31 min-1 hour HYDRATION IV INFUSION INIT [facility] Start: 04-26-2022 Electrocardiographic procedure [facility] Work Phone: Start: 03-20-2022 Patient discharge [facility] Work Phone: Start: 03-20-2022 Referral to occupational therapist [facility] Work Phone: Start: 03-20-2022 Referral to service [facility] Work Phone: Start: 03-19-2022 Ambulation without limitation [facility] Work Phone: Start: 03-19-2022 Assessment of risk of venous thromboembolism [facility] Work Phone: Start: 03-19-2022 Insertion of catheter into peripheral vein [facility] Work Phone: Start: 03-19-2022 Oxygen therapy [facility] Work Phone: Start: 03-19-2022 Providing care according to standard [facility] Work Phone: Start: 03-19-2022 [facility] Work Phone: Start: 03-19-2022 Admission procedure [facility] Work Phone: Start: 03-19-2022 Following clinical pathway protocol [facility] Work Phone: Start: 03-19-2022 Bacteria identified in Blood by Culture Blood Culture [facility] Work Phone: Start: 03-19-2022 Bacteria identified in Urine by Culture Urine Culture [facility] Work Phone: Start: 03-19-2022 Urine culture Urine Culture [facility] Work Phone: Start: 03-19-2022 Patient referral to dietitian [facility] Work Phone: Start: 03-02-2022 Enteric precautions [facility] Work Phone: Start: 01-07-2022 Patient discharge [facility] Work Phone: Start: 01-06-2022 Care regimes management [facility] Work Phone: Start: 01-06-2022 Notification of physician [facility] Work Phone: Start: 01-06-2022 [facility] Work Phone: Start: 01-04-2022 Following clinical pathway protocol [facility] Work Phone: Start: 01-04-2022 Ambulation without limitation [facility] Work Phone: Start: 01-04-2022 Assessment of risk of venous thromboembolism [facility] Work Phone: Start: 01-04-2022 Insertion of catheter into peripheral vein [facility] Work Phone: Start: 01-04-2022 Oxygen therapy [facility] Work Phone: Start: 01-04-2022 Providing care according to standard [facility] Work Phone: Start: 01-04-2022 Referral to gastroenterology service [facility] Work Phone: Start: 01-04-2022 [facility] Work Phone: Start: 01-04-2022 Catheterization of vein [facility] Work Phone: Start: 01-04-2022 Admission procedure [facility] Work Phone: Start: 01-04-2022 Egd transoral biopsy single/multiple EGD BIOPSY SINGLE/MULTIPLE [facility] Work Phone: Start: 01-04-2022 Egd transoral control bleeding any method EGD CONTROL BLEEDING ANY [facility] Work Phone: Start: 01-04-2022 Enteric precautions [facility] Work Phone: Start: 01-04-2022 Patient referral to dietitian [facility] Work Phone: Start: 05-13-2021 Glaucoma screening Dilated Retinal Exam [facility] Start: 05-13-2021 Hepatitis C antibody, confirmatory test Dilated Retinal Exam [facility] Start: 11-08-2020 Annual PCP Team Chronic Disease Visit Annual PCP Team Chronic Disease Visit [facility] Start: 10-06-2020 Creatinine monitoring Creatinine monitoring [facility] Start: 10-06-2020 Potassium monitoring Potassium monitoring [facility] Start: 2020 Hepatitis B Vaccine (1 of 3 - Risk 3-dose series) Hepatitis B Vaccine (1 of 3 - Risk 3-dose series) [facility] Start: 2020 RSV Vaccine (1 - 1-dose 60+ series) RSV Vaccine (1 - 1-dose 60+ series) [facility] Start: 2020 RSV Vaccine (1 - Risk 60-74 years 1-dose series) RSV Vaccine (1 - Risk 60-74 years 1-dose series) [facility] Start: 02-17-2020 3 comp foot exam [facility] Start: 02-17-2020 Diabetic foot examination Diabetic Foot Exam [facility] Start: 07-14-2019 Hepatitis B screening Urine Albumin:Creatinine Ratio [facility] Start: 07-14-2019 Hepatitis B surface antibody level LDL Cholesterol [facility] Start: 07-01-2019 Influenza vaccination Flu vaccine (#1) [place] Start: 06-06-2019 Hemoglobin A1c measurement HbA1C [facility] [place] Start: 06-06-2019 Hemoglobin A1c/Hemoglobin.total in Blood HbA1C [facility] Start: 11-21-2018 Colonoscopy Colonoscopy [facility] Start: 11-21-2018 Colorectal Cancer Screening Colorectal Cancer Screening [facility] Start: 11-21-2018 Screening for malignant neoplasm of colon [facility] Start: 2015 Prostate Cancer Screening Discussion Prostate Cancer Screening Discussion [facility] Start: 2015 Prostate specific antigen measurement Prostate Cancer Screening Discussion [facility] Start: 06-08-2014 Fecal Occult Blood Fecal Occult Blood [facility] Start: 06-08-2014 Screening for malignant neoplasm of colon Fecal Occult Blood [facility] Start: 07-22-2012 Pneumococcal vaccination [facility] Start: 07-22-2012 Pneumococcal Vaccine: 50+ (2 of 2 - PCV) Pneumococcal Vaccine: 50+ (2 of 2 - PCV) [facility] Start: 2010 Colon cancer screen colonoscopy Colon cancer screen colonoscopy [facility] Start: 2010 Shingles Vaccine (1 of 2) Shingles Vaccine (1 of 2) [place] Start: 2010 Shingrix Vaccine (1 of 2) Shingrix Vaccine (1 of 2) [facility] Start: 2005 Cologuard (FIT-DNA) Cologuard (FIT-DNA) [facility] Start: [address] Colonography [facility] Start: 2005 Screening for malignant neoplasm of colon [facility] Start: 2005 Sigmoidoscopy Sigmoidoscopy [facility] Start: 2000 Diabetes screen Diabetes screen [place] Start: 1978 Annual PCP Team Chronic Disease Visit Annual PCP Team Chronic Disease Visit [facility] Start: 1978 Anxiety Screening Anxiety Screening [facility] Start: 1978 BP Controlled (<130/80) BP Controlled (<130/80) [facility] Start: 1978 Depression Screening Depression Screening [facility] Start: 1978 HIV Screening HIV Screening [facility] Start: 1978 HIV screening HIV Screening [facility] Start: 1975 HIV screen HIV screen [place] Start: 1971 DTaP/Tdap/Td vaccine (1 - Tdap) DTaP/Tdap/Td vaccine (1 - Tdap) [place] Start: 1970 Lipid screen Lipid screen [place] Start: 1960 Hepatitis C screen Hepatitis C screen [place] Acetone [Presence] i n Serum or Plasma [facility] Amphetamine [Mass/vo lume] in Urine [facility] Benzodiazepine measu rement, urine [facility] Bilirubin measurement, urine [facility] C. difficile DNA Amplification C. difficile DNA Amplification [facility] Clostridioides diffi cile DNA [Presence] in Unspecified specimen by IOANA with probe detection [facility] Cocaine measurement, urine [facility] Gastrointestinal pat hogens panel - Stool by IOANA with probe detection [facility] Hemoglobin [Presence ] in Urine [facility] Initiate Oxygen Ther apy Protocol Initiate Oxygen Therapy Protocol Respiratory Care Routine Daily until discontinued starting 10/05/2019 [place] Comment on above: Daily until discontinued starting 2018 Measurement of 3,4-methylenedioxymethampheta mine in urine [facility] Measurement of keton es in urine using dipstick [facility] Methadone measurement, urine [facility] Microscopic urinalysis [facility] Ova and parasites id entified in Unspecified specimen by Light microscopy [facility] Patient Education [facility] Work Phone: Patient referral [facility] Work Phone: pH of Urine [facility] pH of Urine [facility] Phencyclidine [Prese nce] in Urine [facility] POCT Glucose [facility] [place] Comment on above: As Needed until discontinued starting 4X Daily (AC & HS) u ntil discontinued starting 10/06/2019 Removal impacted cer umen irrigation/lvg unilat AMBULATORY EAR LAVAGE/IRRIGATION Procedures Routine Bilateral impacted cerumen Ordered: 05/10/2024 [facility] Work Phone: Comment on above: Ordered: 05/10/2024 Specific gravity of Urine [facility] Urinalysis, blood, qualitative [facility] Urine barbiturate measurement [facility] Urine cannabinoid measurement [facility] Urine culture [facility] Urine culture [facility] Urine dipstick for glucose [facility] Urine dipstick for l eukocyte esterase [facility] Urine dipstick for nitrite [facility] Urine dipstick for protein [facility] Urine examination [facility] Urine microscopy: ep ithelial cells [facility] Urine Microscopy: white cells [facility] Urine opiate measurement [facility] Urobilinogen [Presen ce] in Urine [facility] Immunizations Immunization Date Immunization Notes Care Provider Fa cility 11-07-2021 Covid (Pfizer) No Primary Ca re Physician [facility] 04-23-2021 Covid (Moderna) No Primary C are Physician [facility] 03-26-2021 Covid (Moderna) No Primary C are Physician [facility] 11-08-2019 influenza virus vacc ine, unspecified formulation Jimmy Ramos APRN.CNP Work Phone: [facility] 08-08-2012 tetanus and diphther ia toxoids, adsorbed, preservative free, for adult use (2 Lf of tetanus toxoid and 2 Lf of diphtheria toxoid) Jimmy Ramos PUMPER HEAD.ASPHALT PATCHER Work Phone: [facility] 07-22-2011 pneumococcal polysaccharide vaccine, 23 valent Jimmy Ramos PUMPER HEAD.ASPHALT PATCHER Work Phone: [facility] Payers Date Payer Category Payer Self-pay [id number] 2023 Private Health Insurance [facility] [id number] 2023 Unknown [id number] 2022 Medicaid [id number] 2013 Unknown [id number] 2013 Unknown [id number] Unknown [id number]. 462 Unknown [id number]. 462 Unknown [id number] [id number]. 462 Unknown [id number] [id number]. 462 Unknown [id number] 2.16.840.1.100874.3.579.2. 462 Unknown [id number] [id number]. 462 Unknown [id number] 2.16.840.1.286478.3.579.2. 462 Unknown [id number] 2.16.840.1.221293.3.579.2. 462 Unknown [id number] [id number]. 462 Unknown [id number] [id number]. 462 Unknown [id number] 2.16.840.1.144628.3.579.2. 462 Unknown [id number] 2.16.840.1.950130.3.579.2. 462 Unknown [id number] 2.16.840.1.203165.3.579.2. 462 Unknown [id number] [id number]. 462 Unknown [id number]. 462 Social History Date Type Detail Facility Start: 10-06-2019 End: 05-03-2025 Tobacco smoking status NHIS Never smoker [facility] Start: 10-06-2019 Alcohol intake Ex-drinker (finding) [place] Start: 10-06-2019 Alcohol Comment Last drinking 1993, Hx EtOH 10 years, never attended AA program [place], [place] Start: 1960 Sex Assigned At Not on file [place] Start: 03-02-2022 End: 03-09-2024 Tobacco smoking status NYIS Unknown if ever smoked [facility] Start: 05-16-2021 Rare [facility] Start: 11-25-2020 None [facility] Start: 11-24-2020 [facility]one [facility] Start: 05-16-2021 Non-smoker [facility] Start: 1960 Sex Assigned At Male [facility] Start: 08-18-2023 Tobacco use and exposure Former smokeless tobacco user [facility] End: 07-01-1978 History of tobacco use User of smokeless tobacco [facility] Start: 08-18-2023 End: 12-14-2024 Alcohol intake Current non-drinker of alcohol (finding) [facility] Start: 10-05-2020 End: 08-18-2023 History of Social function [facility] Start: 10-05-2020 End: 08-18-2023 Tobacco use panel [facility] Adult Depression Screening Assessment 5 [facility] Start: 08-18-2023 Tobacco Comment Quit when he s wallowed a wad of chew playing baseball! [facility] Start: 02-16-2025 Sex Male (finding) [facility] Medical Equipment Procedure Code Equipment Code Equipment Origin al Text Equipment Identifier Dates [id number], [id number] Start: 09-16-2017 Comment on above: Test blood sugar(s) 4 times daily. Dx: 250.02. InsulinDependent: Yes Use once daily with Lantus Goals Date Patient Goal Desired Activity /State Functional Status Date Assessment Result Facility 03-20-2022 Functional status Up ad hailee [facility] Work Phone: 01-07-2022 Functional status Ambulates [facility] Work Phone: 03-17-2015 Are you deaf, or do you have serious difficulty hearing No 03/17/2015 2:45 PM SARAHT Chantelle Jarrett Ma No [facility] 03-17-2015 Are you blind, or do you have serious difficulty seeing, even when wearing glasses No 03/17/2015 2:45 PM Chantelle Wrya Ma No [facility] 03-17-2015 Do you have serious difficulty walking or climbing stairs No 03/17/2015 2:45 PM Chantelle Wray Ma No [facility] 03-17-2015 Do you have difficul ty dressing or bathing No 03/17/2015 2:45 PM Chantelle Wray Ma No [facility] 03-17-2015 Because of a physica l, mental, or emotional condition, do you have difficulty doing errands alone such as visiting a physician's office or shopping No 03/17/2015 2:45 PM EDT Luiza Herrmann, Chantelle Pollack No [facility] Mental Status Date Assessment Result Facility 02-16-2025 Cognitive function Follows Commands;Drows y [facility] Work Phone: 12-08-2024 Cognitive function Awake;Alert;Appropriat e [facility] Work Phone: 10-30-2024 Cognitive function Awake;Alert;Appropriat e [facility] Work Phone: 10-19-2024 Cognitive function Awake;Alert;A ppropriate;Fol lows Commands [facility] Work Phone: 02-07-2024 Cognitive function Level Of Cons ciousness Awake;Alert;Appropriate;Fol lows Commands [facility] Work Phone: 01-26-2024 Cognitive function Level Of Cons ciousness Awake;Alert;Appropriate;Fol lows Commands [facility] Work Phone: 12-25-2023 Cognitive function Level Of Cons ciousness Awake;Alert;Appropriate;Fol lows Commands [facility] Work Phone: 12-08-2023 Cognitive function Level Of Cons ciousness Awake;Alert;Appropriate;Fol lows Commands [facility] Work Phone: 11-22-2023 Cognitive function Level Of Cons ciousness Awake;Alert;Follows Commands [facility] Work Phone: 07-29-2023 Cognitive function Level Of Cons ciousness Awake;Alert;Appropriate;Fol lows Commands [facility] Work Phone: 12-10-2022 Cognitive function Level Of Cons ciousness Awake;Alert;Appropriate;Fol lows Commands [facility] Work Phone: 10-30-2022 Cognitive function Level Of Cons ciousness Awake;Alert;Appropriate;Fol lows Commands;Drowsy [facility] Work Phone: 08-07-2022 Cognitive function Level Of Cons ciousness Awake;Alert;Appropriate;Fol lows Commands [facility] Work Phone: 03-20-2022 Cognitive function Level Of Cons ciousness Drowsy [facility] Work Phone: 03-19-2022 Cognitive function Cooperative [facility] Work Phone: 03-19-2022 Cognitive function Level Of Cons ciousness Awake;Appropriate;Follows Commands [facility] Work Phone: 01-06-2022 Cognitive function Voice/Name [facility] Work Phone: 03-17-2015 Because of a physica l, mental, or emotional condition, do you have serious difficulty concentrating, remembering, or making decisions No 03/17/2015 2:45 PM EDT Chantelle Jarrett Ma No [facility] Clinical Notes 10-13-2015 to 04-21-2025 Ion Alfaro PUMPER HEAD.[facility] - 12/14/2024 9:32 AM ESTRCristina helms - 05/10/2024 8:10 PM EDMike Cristina - 05/10/2024 8:10 PM Rosa Mitchell APRN.[facility] - 05/10/2024 7:47 PM EDT Note Date & Type Note Facility 04-21-2025 Discharge summary [facility] 04-21-2025 Radiology Diagnostic study note [facility] Imaging Services [address] [place], [place] [address] Knee 4 or More Views MR#: [id number] Acct: [id number] Name: JERALD YODER Rep #: [id number] : 1960 M 65 From: Pet er Peer DO PCP: Care Physician,No Primary Status: REG ER Study:Knee 4 or More Views Date of Exam: 04/21/25 Exam# [id number] Ordering Dr: Zuleyka Calle MD PROCEDURE: KNEE 4 OR MORE VIEWS 04/21/2025 REASON FOR EXAM: INJURY/PAIN Initial encounter TECHNIQUE: KNEE 4 OR MORE VIEWS COMPARISON: None. FINDINGS: Bones: No fracture. No dislocation. Joints: Cartilage thinning and periarticular osteophytes indicate osteoarthritis Effusion: None. Soft tissues: Unremarkable Other: RAD/Knee 4 or More Views IMPRESSION: No acute process detected. Reading [facility] CC: Dr. Ar Calle MD; No Primary Care Physician ~ Aircraft Painter Apprentice: Signed [facility] 02-16-2025 Radiology Diagnostic study note [facility] 12-14-2024 Note HNO ID: [id number] Author: ION ALFARO APRN.ASPHALT PATCHER Service: ? Author Type: Nurse Practitioner Type: Progress Notes Filed: 12/14/2024 09:40 Note Text: This note was created using SwingTime. Subjective Jerald Yoder is a 64 year [...] CETIRIZINE 10 MG TABLET Ion Alfaro APRN.CNP [facility] 12-14-2024 History of Present illness Narrative This note was created using Cortus SAter. Subjective Jerald Yoder is a 64 year [...] - CETIRIZINE 10 MG TABLET Ion Alfaro APRN.ASPHALT PATCHER documented in this encounter [facility] 05-10-2024 Nurse Note Ambulatory Ear Lavage Pre-treatment: Warm water Treatment: Both ears Equipment and Irrigation solution and Volume used: Single use syringe with single use irrigation tip Return flow appearance: Brown Patient tolerated procedure: yes Tympanic membrane assessment: Tympanic membrane assessed by LIP pre-procedure Josef Lee APRN [facility] 05-10-2024 Nurse Note Ambulatory Ear Lavage Pre-treatment: Warm water Treatment: Both ears Equipment and Irrigation solution and Volume used: Single use syringe with single use irrigation tip Return flow appearance: Brown Patient tolerated procedure: yes Tympanic membrane assessment: Tympanic membrane assessed by LIP pre-procedure Josef Lee APRN documented in this encounter [facility] 05-10-2024 Note HNO ID: [id number] Author: ROSA QUINONES APRN.TAMY Service: ? Author Type: Nurse Practitioner Type: Progress Notes Filed: 05/11/2024 08:47 Note Text: This note was created using NoteWriter. Subjective [...] or chills Denies using homeopathic or OTC OPTICAL MECHANIC. Requesting ear irrigation. The history is provided by the patient. No purchasing assistant was used. Ear Problem There is pain [...] and sore throat. (more content not included)... [facility] 05-10-2024 History of Present illness Narrative This note was created using Scirrariter. Subjective Jerald Yoder is a 64 year [...] or chills Denies using homeopathic or OTC OPTICAL MECHANIC. Requesting ear irrigation. The history is provided by the patient. No purchasing assistant was used. Ear Problem There is pain [...] normal. - AMBULATORY EAR LAVAGE/IRRIGATION Rosa Quinones APRN.ASPHALT PATCHER documented in this encounter [facility] 02-07-2024 Discharge summary Note Date/Time February 07, 2024 9:10 pm [facility] Medical Records Department [address] [place] [address] Emergency Department Summary 02/07/24 MR#: [id number] Acct: [id number] Name: JERALD YODER Rep #:[id number] : 1960 63 From: Keenan Wu DO PCP: Dr. Linden Chavez, DO Status:REG [...] nausea or vomiting. Denies diarrhea or constipation. [facility] Medical History Back pain due to [...] 73.2 H Lymph % (Auto) 17.4 L Garvin % (Auto) 5.4 Eos % (Auto) 3.1 [...] Clarity Clear Urine pH 6.0 Ur Specific [place] 1.015 Urine Protein 15 H Urine Glucose [...] (Auto) Neut % (Auto) Lymph % (Auto) Garvin % (Auto) Eos % (Auto) Baso % (Auto) Absolute Neuts (auto) Absolute Lymphs (auto) Nucleated RBC % Sodium Potassium Chloride Carbon Dioxide Anion Gap BUN Creatinine Estim Creat Clear Calc Est GFR (MDRD) Af Amer Est GFR (MDRD) Non-Af BUN/Creatinine Ratio Glucose Calcium Total Bilirubin AST ALT Alkaline Phosphatase Total Protein Albumin Globulin Albumin/Globulin Ratio Urine Color Urine Clarity Urine pH Ur Specific [place] Urine Protein Urine Glucose (UA) Urine Ketones [...] Care Provider: Linden Chavez Referrals: Linden Chavez, DO [Primary Care Provider] - What to do if you have Problems For any increased pain, shortness of breath, bleeding, nausea or vomiting, chestpain, or any unexpected problems, contact your Primary Care Provider. Call [facility] ([phone]) or report to the closest Emergency Room. Call 911 if necessary. 02/08/24 0012 <Electronically signed by Keenan Wu DO> Cosigner Signature (if applicable): CC: Dr. Linden Chavez DO ~ Signed [facility] Work Phone: 1(354) 381-250301-23-2024 Discharge summary Author Barry Mathew [facility] November 22, 2023 5:13pm Note Date/Time November 22, 2023 3 :08pm [facility] Medical Records Department [address] [place] [address] Emergency Department Summary 11/22/23 MR#: [id number] Acct: [id number] Name: JERALD YODER Rep #:[id number] : [...] states that while he was at his xhoaure-fp-ynf's, he felt weak and fell, but did not hurt himself. He presents via EMS with generalized weakness. He states he has been eating and drinking well, to the point where he had 4 hotdogs prior to arrival. He denies any chestpain or shortness of breath. No exacerbating or alleviating factors. [facility] Medical History Back pain due to [...] not feel that he requires observation. His jysticz-ww-lbz is here. They are comfortable with discharge. [...] 70.9 H Lymph % (Auto) 18.9 L Garvin % (Auto) 5.0 Eos % (Auto) 4.5 [...] Sl. Cloudy Urine pH 5.0 Ur Specific [place] 1.020 Urine Protein 15 H Urine Glucose [...] your Primary Care Provider. Call [facility] ([phone]) or report to the closest Emergency Room. Call 911 if necessary. 11/22/231712 <Electronically signed by Barry Mathew MD> Cosigner Signature (if applicable): CC: Dr. Linden Chavez, ~ Signed [facility] Work Phone: 1(766) 695-540011-30-2023 Discharge summary Author Barry [facility] September 29, 2023 11:33pm Note Date/Time September 29, 2023 9:05pm [facility] Medical Records Department [address] [place] [address] Emergency Department Summary 09/29/23 MR#: [id number] Acct: [id number] Name: JERALD YODER Rep #:[id number] : 1960 63 From: Barry Mathew MD PCP: Dr. Linden Chavez DO Status:REG ER Location: ED HPI History of Present Illness Chief Complaint: Nausea/Vomiting/Diarrhea Narrative Narrative: 63-year-old male past medical history of hypertension, presents with nausea and diarrhea that he has had for the last 5 hours. He states he ate at the [employer] and had a salad with 6 ranch [...] No chest pain or shortness of breath. [facility] Medical History Back pain due to [...] 78.5 H Lymph % (Auto) 13.5 L Garvin % (Auto) 5.2 Eos % (Auto) 1.7 [...] your Primary Care Provider. Call [facility] ([phone]) or report to the closest Emergency Room. Call 911 if necessary. 09/29/232332 <Electronically signed by Barry Mathew MD> Cosigner Signature (if applicable): CC: Dr. Linden Chavez DO ~ Signed [facility] Work Phone: 1(123) 616-279110-19-2023 History of Present illness Narrative* Jimmy Ramos APRN.ASPHALT PATCHER - 08/18/2023 4:12 PM EDT Subjective HPI [...] of care. This note was generated using Medityplus software. It may contain errors in wording, punctuation, or spelling. Jimmy Ramos APRN.ASPHALT PATCHER [facility] Wu [facility] December 11, 2022 9:32pm Note Date/Time December 11, 2022 4:55pm [facility] Medical Records Department [address] [place] [address] Emergency Department Summary 12/11/22 MR#: [id number] Acct: [id number] Name: JERALD YODER Rep #:[id number] : 1960 62 From: Keenan Wu DO PCP: Dr. Iván Hassan MD Status:REG E R Location: ED [facility] History of Present Illness Chief Complaint: Weakness [...] Hassan but has not made an appointment. [facility] Medical History Back pain due to [...] % (Auto) 67.1 Lymph % (Auto) 22.4 Garvin % (Auto) 6.1 Eos % (Auto) 3.4 [...] Color Urine Clarity Urine pH Ur Specific [place] Urine Protein Urine Glucose (UA) Urine Ketones [...] (Auto) Neut % (Auto) Lymph % (Auto) Garvin % (Auto) Eos % (Auto) Baso % [...] Clarity Clear Urine pH 6.0 Ur Specific [place] 1.015 Urine Protein 15 H Urine Glucose [...] 17:32 EST Reading Location ID and State: [facility] [place] Tel [phone], Service support , Discharge Plan Triage Chief [...] Days Qty: 20 0RF Primary Care Provider: vIán Hassan Referrals: Linden Chavez, [Med Staff - Groundskeeper Porter] - As soon as possible Disposition Disposition: Home, Self Care What to do if you have Problems For any increased pain, shortness of breath, bleeding, nausea or vomiting, chestpain, or any unexpected problems, contact your Primary Care Provider. Call [facility] ([phone]) or report to the closest Emergency Room. Call 911 if necessary. 12/11/222131 <Electronically signed by Keenan Wu DO> Cosigner Signature (if applicable): CC: Dr. Iván Hassan MD ~ Signed [facility] Work Phone: 1(233) 365-179301-26-[address] Calle [facility] November 25, 2022 3:03pm Note Date/Time November 25, 2022 1 :30pm [facility] Medical Records Department [address] [place] [address] Emergency Department Summary 11/25/22 MR#: [id number] Acct: [id number] Name: JERALD YODER Rep #:[id number] : [...] infectious symptoms. He denies chest pain, dyspnea, [place] exertion, orthopnea PND. He does endorse crampy [...] Plan Triage Chief Complaint: Nausea/Vomiting/Diarrhea ED Provider: Ar Calle Dx/Rx/DC Orders Clinical Impression: Abdominal pain, vomiting, [...] on your insurance card issued to you [facility] 2. Increase fluid intake today 3. You need to take your medication as prescribed and you need to be compliant with your diet Disposition Disposition: Home, Self Care What to do if you have Problems For any increased pain, shortness of breath, bleeding, nausea or vomiting, chestpain, or any unexpected problems, contact your Primary Care Provider. Call [facility] ([phone]) or report to the closest Emergency Room. Call 911 if necessary. 11/25/22 1503 <Electronically signed by Ar Calle MD> Cosigner Signature (if applicable): CC: No Primary Care Physician ~ Signed [facility] Work Phone: [phone]) 241-517012-14-2015 History of Past illness Narrative* Problem Noted Date Diagnosed Date Resolved Date Ankle fracture, left 10/13/2015 017 COPD (chronic obstructive pulmonary disease) 11/17/2019 documented as of this encounter (statuses as of 08/18/2023) [facility] January 18, 2023 9:52am Note Date/Time January 18, 2023 8:1 7am [facility] Medical Records Department [address] [place] [address] Emergency Department Summary 01/18/23 MR#: [id number] Acct: [id number] Name: JERALD YODER Rep #:[id number] : [...] he feels lightheaded when he stands up. [facility] Medical History Back pain due to [...] history of alcohol abuse. Medications: Reviewed in [employer], the nurse had just gone over them [...] 71.9 H Lymph % (Auto) 18.0 L Garvin % (Auto) 6.8 Eos % (Auto) 2.6 [...] Referrals: Linden Chavez, [Primary Care Provider] - 3-5 Days Disposition Disposition: Home, Self Care What to do if you have Problems For any increased pain, shortness of breath, bleeding, nausea or vomiting, chestpain, or any unexpected problems, contact your Primary Care Provider. Call [facility] ([phone]) or report to the closest Emergency Room. Call 911 if necessary. 01/18/23951 <Electronically signed by Bernard Chavez MD> Cosigner Signature (if applicable): CC: Dr. Linden Chavez DO ~ Signed [facility] Work Phone: Discharge summary Author Johann Lemons [facility] March 08, 2024 8:59am Note Date/Time March 08, 2024 8:14am [facility] Medical Records Department [address] [place] [address] Emergency Department Summary 03/08/24 MR#: [id number] Acct: [id number] Name: JERALD YODER Rep #:[id number] : [...] therefore comes to the hospital for evaluation. [facility] Medical History Back pain due to [...] % (Auto) 65.4 Lymph % (Auto) 22.8 Garvin % (Auto) 6.9 Eos % (Auto) 3.9 [...] Signed: Alex Maza MD at 7:52 EDT , Acute abdominal series with 1 view [...] your Primary Care Provider. Call [facility] ([phone]) or report to the closest Emergency Room. Call 911 if necessary. 03/08/24 0859 <Electronically signed by Johann Lemons DO> Cosigner Signature (if applicable): CC: Dr. Linden Chavez DO ~ Signed [facility] Work Phone: Discharge summary Author Ar Calle [facility] Note Date/Time April 21, 2025 1:09 pm [facility] Medical Records Department [address] [place] [address] Emergency Department Summary 04/21/25 MR#: [id number] Acct: [id number] Name: JERALD YODER Rep #:[id number] : [...] Prior similar symptoms: No Recent Illness/Hospitalization: [facility] Medical History Partial traumatic amputation of [...] is no laxity varus valgus stress testing. Itm's test was negative. Modified Brandon's test is [...] IMPRESSION: No acute process detected. Reading Location: [facility] Treatment and Re-Evaluation Narrative: Patient was formed of his x-ray results. Patient was informed that his pain andnumbness is due to his diabetic neuropathy. He was started on gabapentin. He was instructed to follow-up with his doctor for dose adjustments. Discharge Plan Triage Chief Complaint: Fall ED Provider: Ar Calle Dx/Rx/DC Orders Clinical Impression: Contusion of left knee, initial encounter, Coronary atherosclerosis of [place] coronary artery, Essential hypertension, HLD (hyperlipidemia), History [...] your insurance card issued to you by [employer] Language: Nigerien Disposition Disposition: Home, Self Care What to do if you have Problems For any increased pain, shortness of breath, bleeding, nausea or vomiting, chestpain, or any unexpected problems, contact your Primary Care Provider. Call [facility] ([phone]) or report to the closest Emergency Room. Call 911 if necessary. 04/21/25 1305 <Electronically signed by Ar Calle MD> Cosigner Signature (if applicable): CC: No Primary Care Physician ~ Signed [facility] Work Phone: Evaluation note* Diagnosis Onset Date Resolution Status Abdominal pain resolved Diarrhea resolved Gastroparesis resolved Hyperglycemia resolved [facility] Work Phone: Evaluation note* Diagnosis Onset Date Resolution Status Abdominal pain resolved Diarrhea resolved Gastroparesis resolved Hyperglycemia resolved Acute diarrhea acute Generalized weakness acute Transient hypotension acute [facility] Work Phone: Evaluation note* Diagnosis Onset Date Resolution Status Abdominal pain resolved Diarrhea resolved Gastroparesis resolved Hyperglycemia resolved Acute diarrhea resolved Generalized weakness resolve d Transient hypotension resolv ed [facility] Work Phone: Evaluation note* Diagnosis Onset Date Resolution Status Acute diarrhea resolved Generalized weakness resolve d Transient hypotension resolv ed [facility] Work Phone: Evaluation noteNo assessment information available [facility] Work Phone: Evaluation note* Diagnosis Bilateral impacted cerumen- Primary Impacted cerumen documented in this encounter [facility] Diagnosis Bilateral impacted cerumen- Primary Impacted cerumen documented in this encounter [facility]* Diagnosis Eustachian tube dysfunction, bilateral- Primary [facility] Work Phone: [facility] Work Phone: [facility] Work Phone: Hospital Discharge instructions Additional Instructions 1. The name of your doctor is located on your insurance card issued to you from [facility] 2. Increase fluid intake today 3. You need to take your medication as prescribed and you need to be compliant with your dietWAs[facility]ab[facility] Work Phone: Hospital Discharge instructions Additional Instructions Blood glucose 250. Labs stable EKG normal. Continue oral fluids. Follow-up with your doctor to restart heart your medications.[facility] Work Phone: Hospital Discharge instructions Additional Instructions Laboratory studies stable glucose 340s with no signs of DKA. Insulin with improvement down to 130s. Continue oral fluids for hydration. Follow-up with your doctor. Return if worsening symptoms.[facility] Work Phone: Hospital Discharge instructions Additional Instructions Pepto-Biserasmol will turn his stools black. This is an expected side effect of that medication, you are testing negative for blood, so likely due to that medication. If you take it in the future and to turn your stool black temporarily, you do not need to be concerned. If you see blood return to the ER.[facility] Work Phone: Hospital Discharge instructions Additional Instructions Your CT showed no broken bones. Use ice and take [id number] Tylenol and Motrin as needed for pain.[facility] Work Phone: Hospital Discharge instructions Additional Instructions Your CT scan showed no sign of bowel blockage. It did show changes consistent with constipation . Take MiraLAX as directed every day to prevent these recurrent issues . please keep yourself well-hydrated and continue to take your diabetic medication as directed. Return to the ER should you have any further concerns.[facility] Work Phone: Hospital Discharge instructions Additional Instructions When you get home drink half the bottle of magnesium citrate. If you do not have a bowel movement in 4 hours finished the bottle. Once the magnesium citrate is stimulated bowel movement continue to the MiraLAX daily to help with recurrent bowel movements and resolve your constipation.[facility] Work Phone: Hospital Discharge instructions Additional [...] the ER should you have any further concernsWooSum[facility] Work Phone: Hospital Discharge instructions Additional Instructions Thank you for trusting us with your care today! Please take Tylenol (2 pills, 650 mg), ibuprofen (2 pills, 400 mg) every 6 hours as needed for pain and fever control. Please return to the emergency department if your symptoms change or worsen. Please follow with your primary care physician for further outpatient evaluation and management.[facility] Work Phone: Hospital Discharge instructions Additional Instructions Call your doctor for follow-up. The name of your doctor is located on your insurance card issued to you by [facility] Work Phone: Hospital Discharge instructionsAdditional Instructions Drink plenty of fluids. I prescribed metformin to start taking even twice daily. Follow-up with your primary care doctor to have your sugars monitored and see if you need insulin prescribed. You also have a urinary tract infection. You have had these multiple times in the past likely because your blood sugars are running high. Take all of the antibiotics as prescribed.[facility] Work Phone: Reason for referral (narrative)No reason for referral information availableWAshtabula [facility] Hospital Work Phone: Hospital Course * Zahira [...] DISCHARGE MEDICATIONS: Jerald Yoder Home Medication Instructions IFEOMA:[id number] Printed on:10/06/19 8246 Medication Information aspirin 81 MG tablet Take [...] Complexity: follow up within 7-14 calendar days (32185) [] Severe Complexity: follow up within 7 calendar days (33416) FOLLOW UP TESTING, PENDING RESULTS OR REFERRALS [...] most local grocery stores, pharmacies, and chain super-stores. ? If you have any questions about [...] be monitored and followed by the diet software test technician. 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 Advance Directives and Living Will Power of Counter Weigher Latest Code Status on File Code Status Date Activated Date Inactivated Comments Full Code 10/06/2019 11:12 AM Full Code 10/05/2019 5:27 PM 10/06/2019 11:12 AM Advance Directive Response Recorded Date/ Time Advance Directives No November 30, 2016 10:29am Living Will No March 02, 2022 7: 27pm Power of Counter Weigher No March 02, 2022 7:27pm Advance Directive Response Recorded Date/ Time Advance Directives No November 30, 2016 10:29am Living Will No March 19, 2022 5 :35pm Power of Counter Weigher No March 19, 2022 5:35pm Advance Directive Response Recorded Date/ Time Advance Directives No November 30, 2016 10:29am Living Will No March 19, 2022 1 1:38pm Power of Counter Weigher No March 19, 2022 11:38pm Advance Directive Response Recorded Date/ Time Advance Directives No November 30, 2016 10:29am Living Will No April 26, 2022 2:33pm Power of Counter Weigher No April 26 2:33pm Advance Directive Response Recorded Date/ Time Advance Directives No November 30, 2016 10:29am Living Will No May 26, 2022 1:38am Power of Counter Weigher No May 26 1:38am Advance Directive Response Recorded Date/ Time Advance Directives No November 30, 2016 10:29am Living Will No July 02 022 9:45pm Power of Counter Weigher No July 02, 2022 9:45pm Advance Directive Response Recorded Date/ Time Advance Directives No November 30, 2016 10:29am Living Will No August 07 6:50pm Power of Counter Weigher No August 07 6:50pm Advance Directive Response Recorded Date/ Time Advance Directives No November 30, 2016 9:29am Living Will No September 18 022 10:57am Power of Counter Weigher No September 18, 2022 10:57am Advance Directive Response Recorded Date/ Time Advance Directives No November 30, 2016 9:29am Living Will No November 25 2:07pm Power of Counter Weigher No November 25, 2022 2:07pm Advance Directive Response Recorded Date/ Time Advance Directives No November 30, 2016 9:29am Living Will No December 10 023 9:57am Power of Counter Weigher No December 10, 2022 9:57am Advance Directive Response Recorded Date/ Time Advance Directives No November 30, 2016 9:29am Living Will No December 11, 2 023 4:20pm Power of Counter Weigher No December 11, 2022 4:20pm Advance Directive Response Recorded Date/ Time Advance Directives No November 30, 2016 10:29am Living Will No January 18, 2023 8:03am Power of Counter Weigher No January 18 8:03am Advance Directive Response Recorded Date/ Time Advance Directives No November 30, 2016 10:29am Living Will No March 07, 2023 1: 12am Power of Counter Weigher No March 07, 2023 1:12am Advance Directive Response Recorded Date/ Time Advance Directives No November 30, 2016 10:29am Living Will No May 12, 2023 3:57pm Power of Counter Weigher No May 12 3:57pm Advance Directive Response Recorded Date/ Time Advance Directives No November 30, 2016 10:29am Living Will No August 26 5:10am Power of Counter Weigher No August 26, 2023 5:10am Advance Directive Response Recorded Date/ Time Advance Directives No November 30, 2016 9:29am Living Will No September 29, 023 8:45pm Power of Counter Weigher No September 29, 2023 8:45pm Advance Directive Response Recorded Date/ Time Advance Directives No November 30, 2016 9:29am Living Will No September 30 11:40pm Power of Counter Weigher No September 30, 2023 11:40pm Advance Directive Response Recorded Date/ Time Advance Directives No November 30, 2016 9:29am Living Will No November 22 2:25pm Power of Counter Weigher No November 22, 2023 2:25pm Advance Directive Response Recorded Date/ Time Advance Directives No November 30, 2016 9:29am Living Will No December 08 12:56pm Power of Counter Weigher No December 08, 2023 12:56pm Advance Directive Response Recorded Date/ Time Advance Directives No November 30, 2016 9:29am Living Will No December 18, 024 4:23pm Power of Counter Weigher No December 18, 2023 4:23pm Advance Directive Response Recorded Date/ Time Advance Directives No November 30, 2016 9:29am Living Will No December 25, 024 8:47am Power of Counter Weigher No December 25, 2023 8:47am Advance Directive Response Recorded Date/ Time Advance Directives No November 30, 2016 10:29am Living Will No December 25, 024 9:47am Power of Counter Weigher No December 25, 2023 9:47am Advance Directive Response Recorded Date/ Time Advance Directives No November 30, 2016 10:29am Living Will No January 26, 2024 11:41pm Power of Counter Weigher No January 25 11:41pm Advance Directive Response Recorded Date/ Time Advance Directives No November 30, 2016 10:29am Living Will No February 07, 2024 7:17pm Power of Counter Weigher No February 06 7:17pm Advance Directive Response Recorded Date/ Time Advance Directives No November 30, 2016 10:29am Living Will No March 08, 2024 6: 24am Power of Counter Weigher No March 08, 2024 6:24am Advance Directive Response Recorded Date/ Time Advance Directives No November 30, 2016 10:29am Living Will No May 10th, 2024 1 :35am Power of Counter Weigher No March 09, 2024 1:35am Advance Directive Response Recorded Date/ Time Living Will No October 19, 2 024 4:56am Do you have a Healthcare Power of Counter Weigher? No October 19, 2024 4:56am Living Will No December 20, 025 6:56pm Do you have a Healthcare Power of Counter Weigher? No December 20, 2024 6:56pm Living Will No October 30 024 1:19am Do you have a Healthcare Power of Counter Weigher? No October 30, 2024 1:19am Living Will No November 27 2:38pm Do you have a Healthcare Power of Counter Weigher? No November 27, 2024 2:38pm Living Will No December 08 1:33pm Do you have a Healthcare Power of Counter Weigher? No December 08, 2024 1:33pm Living Will No December 27 025 2:11am Do you have a Healthcare Power of Counter Weigher? No December 27, 2024 2:11am Living Will No February 16, 2025 4:01am Do you have a Healthcare Power of Counter Weigher? No February 16, 2025 4:01am Advance Directives No November 30, 2016 10:29am Advance Directive Response Recorded Date/ Time Living Will No December 20 025 6:56pm Do you have a Healthcare Power of Counter Weigher? No December 20, 2024 6:56pm Living Will No November 27 2:38pm Do you have a Healthcare Power of Counter Weigher? No November 27, 2024 2:38pm Living Will No December 08 1:33pm Do you have a Healthcare Power of Counter Weigher? No December 08, 2024 1:33pm Living Will No December 27 2 025 2:11am Do you have a Healthcare Power of Counter Weigher? No December 27, 2024 2:11am Living Will No February 16, 2025 4:01am Do you have a Healthcare Power of Counter Weigher? No February 16, 2025 4:01am Do you have a Healthcare Power of Counter Weigher? No March 26, 2025 9:53pm Advance Directives No November 30, 2016 10:29am Advance Directive Response Recorded Date/ Time Living Will No December 27 2:11am Do you have a Healthcare Power of Counter Weigher? No December 27, 2024 2:11am Living Will No February 16, 2025 4:01am Do you have a Healthcare Power of Counter Weigher? No February 16, 2025 4:01am Do you have a Healthcare Power of Counter Weigher? No March 26, 2025 9:53pm Do you have a Healthcare Power of Counter Weigher? No April 21, 2025 10:50am Advance Directives No November 30, 2016 10:29am Advance Directive Response Recorded Date/ Time Living Will No February 16, 2025 4:01am Do you have a Healthcare Power of Counter Weigher? No February 16, 2025 4:01am Do you have a Healthcare Power of Counter Weigher? No March 26, 2025 9:53pm Do you have a Healthcare Power of Counter Weigher? No April 21, 2025 10:50am Advance Directives No November 30, 2016 10:29am Advance Directive Response Recorded Date/ Time Living Will No February 16, 2025 4:01am Do you have a Healthcare Power of Counter Weigher? No February 16, 2025 4:01am Do you have a Healthcare Power of Counter Weigher? No March 26, 2025 9:53pm Do you have a Healthcare Power of Counter Weigher? No April 21, 2025 10:50am Do you have a Healthcare Power of Counter Weigher? No May 03, 2025 12:24pm Advance Directives No November 30, 2016 10:29am [...] 8:08pm FALL April 21, 2025 10:5 0am OUT OF MEDS May 03, 2025 11:27 am Additional Source Comments (unrecognized sect ion and content) No Status Records FoundNo Status Records FoundNo Status Records Found INFORMATION SOURCE (unrecogn ized section and content) DATE CREATED AUTHOR 10/14/2019 [facility] DATE CREATED AUTHOR AUTHOR'S ORGANIZ ATION 12/16/2024 [facility] DATE CREATED AUTHOR AUTHOR'S ORGANIZ ATION 05/09/2025 [facility] Goals (unrecognized section and content) Goals may [...] Primary Care Provider Active Dr. Keenan Wu , Attending Provider, Emergency Provider Active Team Status: Inactive Member Role Status Dates No Primary Care Physician Primary Care Provider Active Dr. Johann Lemons , Attending Provider, Emergency Pr ovider Active Team [...] Member Role Status Dates Dr. Panchito Castillo , Emergency Provider Active Dr. Iván Hassan MD [...] Status: Inactive Member Role Status Dates Dr. Linedn Chavez DO Primary Care Provider Active Barry Mathew MD Attending Provider, Emergency Provid er Active Team Status: Inactive Member Role Status Dates Dr. Linden Chavez DO Primary Care Provider Active Dr. Keenan Wu DO Emergency Provider Active Team Status: Inactive Member Role Status Dates Dr. Linden Chavez DO Primary Care Provider Active Dr. Keenan Wu , DO Attending Provider, Emergency Provider Active Team [...] April 26, 2025 End: April 26, 2025 Team Status: Inactive Member Role/Relationship Status Dates Dr. Linden Chavez DO Primary Care Provider Active Start: May 03, 2025 End: May 03, 2025 Dr. Pedro Krishnan DO Emergency Provider Active Start: May 03, 2025 End: May 03, 2025 Source Comments (unrecognize d section and content) In the event this informatio n is protected by the Federal Confidentiality of Alcohol and Drug Abuse Patient Records regulations: The Federal rules restrict any use of the information to criminally investigate or prosecute any alcohol or drug abuse patient.[facility] the event this information is protected by the Federal Confidentiality of Alcohol and Drug Abuse Patient Records regulations: The Federal rules restrict any use of the information to criminally investigate or prosecute any alcohol or drug abuse patient.[facility] the event this information is protected by the Federal Confidentiality of Alcohol and Drug Abuse Patient Records regulations: The Federal rules restrict any use of the information to criminally investigate or prosecute any alcohol or drug abuse patient.[facility] Reason for Visit (unrecogniz ed section [...] BE BASED ON THE PRIMARY CLINICAL RECORDS. [facility] [employer] [facility]. provides no warranty or guarantee of the accuracy or completeness of information in this document.
--- NOTE | 2025-05-22 07:34 | EKG12_ITS ---
Test Reason : WEAKNESS Blood Pressure : */* mmHG Vent. Rate : 68 BPM Atrial Rate : 68 BPM P-R Int : 186 ms QRS Dur : 92 ms QT Int : 410 ms P-R-T Axes : 47 -38 34 degrees QTcB Int : 435 ms Normal sinus rhythm Left axis deviation Abnormal ECG Confirmed by MITALI TRACY, TABBY ([id number]), scientific publications editor ТАТЬЯНА HUIZAR ([id number]) on 05/24/2025 1:13:34 PM Referred By: Confirmed By: TABBY JASMINE MD
--- NOTE | 2025-05-22 07:36 | EX.ED.DYSGE1 ---
HPI History of Present Illness Chief Complaint: Weakness Informant: patient Narrative Narrative: Patient is a 65-year-old male with history of insulin-dependent diabetes mellitus, hypothyroidism, pancreatitis, hypertension and coronary artery disease presenting with recurrent diarrhea, elevated blood glucose and generalized weakness. Patient states he had severe diarrhea 1 to 2 days ago however its improved a little bit today. He did have a very large episode of diarrhea today however. States has been trying to take Imodium Pepto-Bismol with no significantly. Has had some associated black discoloration. Was concerned also because his blood sugar was around 200 however and has been downtrending. Did take his morning insulin. Denies any nausea or vomiting. Does have crampy abdominal pain before the bowel movements. States he is been having these episodes diarrhea for about a year but it was particularly bad over the past few days. Does follow with his primary care doctor who did prescribe him medication for this however he had not been able to pick it up yet because it was too expensive. He anticipates being able to do that shortly however because he has a new insurance coverage. No other complaints or concerns reported at this time. 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 Esophageal candidiasis Current use of insulin Back pain due to injury Restless legs Injury of head and neck COPD (chronic obstructive pulmonary disease) High cholesterol History of stress test Depression Chronic pain Non-smoker Sleep apnea Diabetes Hyperlipidemia Hypertension Myocardial infarct Home Medications ?Medication ?Instructions ?Recorded ?Last Taken ?Type metformin 500 mg tablet,extended 500 mg PO BID diabetes 05/02/19 03/18/22 History release 24 hr glipizide 5 mg tablet 5 mg PO BID diabetes 03/19/22 03/18/22 History insulin glargine 100 unit/mL (3 10 unit subcut BID diabetes 03/19/22 03/18/22 History mL) subcutaneous pen (Lantus Solostar U-100 Insulin) hydrocortisone 1 % topical cream 1 applic topical TID PRN skin 08/26/23 Unknown Rx irritation #28.4 grams ibuprofen 600 mg tablet 600 mg PO Q8H PRN PRN pain #20 08/26/23 Unknown Rx TABLETS insulin glargine 100 unit/mL 1 unit subcut QPM 09/29/23 Unknown History subcutaneous solution (Lantus U-100 Insulin) levothyroxine 100 mcg tablet 100 mcg PO DAILY 09/29/23 Unknown History cyclobenzaprine 10 mg tablet 10 mg PO TID PRN Muscle Spasm #15 08/10/24 Unknown Rx TABLETS aspirin 81 mg tablet,delayed 81 mg PO DAILY 02/16/25 Unknown History release (Adult Aspirin Regimen) doxycycline hyclate 100 mg capsule 100 mg PO BID 7 days #14 caps 02/16/25 Unknown Rx gabapentin 100 mg capsule 100 mg PO TID #90 caps 04/21/25 Unknown Rx metformin 500 mg tablet 500 mg PO BID 30 days #60 tabs 05/03/25 Unknown Rx sulfamethoxazole 800 1 tab PO BID 7 days #14 tabs 05/03/25 Unknown Rx mg-trimethoprim 160 mg tablet (Bactrim DS) pantoprazole 20 mg tablet,delayed 20 mg PO DAILY #30 tabs 05/22/25 Unknown Rx release (Protonix) Allergy/AdvReac Type Severity Reaction Status Date / Time diphenhydramine HCl (From Allergy Rash Verified 05/22/25 07:02 Benadryl) Penicillins Allergy Rash Verified 05/22/25 07:02 venom-honey bee (bee venom Allergy Swelling Verified 05/22/25 07:02 (honey bee)) Surgical History H/O hernia repair Hx of left knee surgery Hx of inguinal herniorrhaphy History of coronary artery stent placement Social History household members: none Smoking Status: Never smoker substance use type: does not use ROS ROS ED Constitutional Constitutional ED: Denies chills or fever(s) Cardiovascular Cardiovascular: Denies chest pain Respiratory/Chest Respiratory/Chest: Denies cough Gastrointestinal Gastrointestinal: Reports abdominal pain and diarrhea; Denies nausea or vomiting Genitourinary Genitourinary ED: Denies dysuria or urinary frequency Musculoskeletal Musculoskeletal: Denies arthralgias or myalgias Integumentary Reports Abrasions and rash Neurologic Neurologic: Reports weakness; Denies headache(s) Hematologic/Lymphatic Hematologic/Lymphatic: Denies easy bleeding or easy bruising EXAM Physical Exam Const Vital Signs: 05/22/25 07:01 05/22/25 07:03 05/22/25 09:01 Temperature 98.7 F Temperature Source Oral Pulse Rate 65 76 Respiratory Rate 18 14 Respiratory Effort Normal Respiratory Pattern Normal Blood Pressure 143/88 H 134/78 H Blood Pressure Mean 106 96 Pulse Ox 95 98 Oxygen Delivery Method Room Air Room Air 05/22/25 11:00 05/22/25 12:32 Temperature 97.8 F Temperature Source Pulse Rate 78 66 Respiratory Rate 23 H 18 Respiratory Effort Respiratory Pattern Blood Pressure 142/65 H 129/76 H Blood Pressure Mean 90 93 Pulse Ox 96 99 Oxygen Delivery Method Room Air Positive well nourished and well developed General Appearance ED: well developed and NAD HEENT Reports moist mucous membranes Eyes PERRL Neck supple and no JVD Chest Wall inspection of chest normal and palpation of chest normal Resp normal respiratory effort and clear to auscultation bilaterally Cardio regular rhythm and no murmurs GI normal to inspection, nondistended, normoactive bowel sounds and non-tender GI Narrative: Chaperoned rectal exam performed. Brown stool on exam. Palpation: soft; Negative for tender or guarding Extremity normal to inspection General Extremety ED: Negative for edema General Extremity: Negative for edema Neuro oriented x3 Sensorium / Orientation: alert Motor Exam: Negative for general weakness Psych mental status grossly normal Skin Skin Narrative: Slightly irregular 2 cm x 3 cm area of ulceration/abrasion to the right cheek. No surrounding cellulitic changes or drainage. On his arms he has scattered ulcerated lesions consistent with skin picking. MDM MDM MDM Narrative Medical decision making narrative: Patient valuated for elevated blood sugar and generalized weakness. Is a history of diabetes mellitus and what sounds like chronic episodes of diarrhea. Has been seen in the ER for similar presentation in the past. Differential includes TARYN, DKA, HHNK, electrolyte derangements, colitis, irritable bowel disease and poorly controlled diabetes as well as medication reaction. CBC, CMP largely normal. He has very mild anemia with a hemoglobin of 12.3 which is slightly low compared to where he will as it began this month at 14. His BUN is actually normal. Magnesium is low at 1.3. Will be given a dose of IV magnesium in the emergency room. Will be given outpatient referral for GI. Hemoccult is positive. Did discuss case with GI. He will be happy to see the patient outpatient. Agrees that he is relatively low risk right now and can follow-up outpatient. There is no obvious blood on his rectal exam or signs of active bleeding. Patient's given return precautions. Will be discharged home with close outpatient GI follow-up. Patient verbalized agreement understand this. Lab Data Attestation: I reviewed the patient's lab results. Labs: Laboratory Results - last 24 hr 05/22/25 07:57 WBC 6.7 RBC 4.33 L Hgb 12.3 L Hct 35.5 L MCV 82.0 MCH 28.4 MCHC 34.6 RDW Std Deviation 40.8 RDW Coeff of Manjinder 13.8 Plt Count 151 MPV 8.8 Immature Gran % (Auto) 0.300 Neut % (Auto) 67.1 Lymph % (Auto) 19.8 [place] % (Auto) 7.7 Eos % (Auto) 4.5 Baso % (Auto) 0.6 Absolute Neuts (auto) 4.5 Absolute Lymphs (auto) 1.32 Nucleated RBC % 0 Sodium 139 Potassium 4.0 Chloride 100 Carbon Dioxide 29.9 Anion Gap 10 BUN 16 Creatinine 0.90 Estim Creat Clear Calc 103.13 Est GFR (MDRD) Non-Af 95 BUN/Creatinine Ratio 17.8 Glucose 183 H Calcium 9.3 Magnesium 1.3 L Total Bilirubin 0.27 AST 13 ALT 10 Alkaline Phosphatase 79 Total Protein 6.2 Albumin 3.6 Globulin 2.5 Albumin/Globulin Ratio 1.4 Rhythm Strip Rhythm Strip: Sinus Rhythm Rate: 68 Ectopy: None EKG Initial EKG: Attestation: I personally reviewed and interpreted this EKG as follows: Interpretation: Sinus Rhythm Comments: Normal sinus rhythm at a rate of 68 bpm Left axis deviation Normal intervals Normal ST segments Compared to prior EKG on 05/03/2025 no acute change Prior EKG tracings: available for review Prior: Unchanged Management 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) Discharge Plan Triage Chief Complaint: Weakness ED Provider: Antonette Dominguez Dx/Rx/DC Orders Clinical Impression: Diarrhea, Occult GI bleeding, Hypomagnesemia Instructions: Hypomagnesemia Dc, ED Diarrhea, Unknown Cause, ED Upper GI Bleeding (Stable) Prescriptions: New pantoprazole [Protonix] 20 mg tablet,delayed release (DR/EC) 20 mg PO DAILY Qty: 30 0RF No Action metformin 500 MG tablet 500 mg PO BID Patient Comments: diabetes insulin glargine [Lantus Solostar U-100 Insulin] 100 unit/mL (3 mL) Insulin Pen 10 unit SUBCUT BID glipizide 5 mg tablet 5 mg PO BID Rx Instructions: Hold if glucose less than 130 mg/dl ibuprofen 600 mg tablet 600 mg PO Q8H PRN PRN (Reason: pain) Qty: 20 0RF hydrocortisone 1 % cream 1 applic topical TID PRN (Reason: skin irritation) Qty: 28.4 0RF levothyroxine 100 mcg tablet 100 mcg PO DAILY Patient Comments: Take 1 tab by mouth once daily on an empty stomach insulin glargine [Lantus U-100 Insulin] 100 unit/mL solution 1 unit subcut QPM cyclobenzaprine 10 mg tablet 10 mg PO TID PRN (Reason: Muscle Spasm) Qty: 15 0RF aspirin [Adult Aspirin Regimen] 81 mg tablet,delayed release (DR/EC) 81 mg PO DAILY doxycycline hyclate 100 mg capsule 100 mg PO BID 7 Days Qty: 14 0RF gabapentin 100 mg capsule 100 mg PO TID Qty: 90 0RF sulfamethoxazole-trimethoprim [Bactrim DS] 800-160 mg tablet 1 tab PO BID 7 Days Qty: 14 0RF metformin 500 mg tablet 500 mg PO BID 30 Days Qty: 60 0RF Primary Care Provider: Linden Chavez Referrals: Linden Chavez DO [Primary Care Provider] - Friend,DO Donaldo [Med Staff - Active Staff] - Activity Restrictions/Additional Instructions: Please stop taking ibuprofen or other NSAIDs as this can irritate to the stomach. There was microscopic blood in your stool today and you had a very mild anemia. You been started on an antacid. Possibly could have some subtle GI bleeding going on. Please follow-up closely with GI. Call the office to make an appointment and we will get you when in the next week. Let them know you are seen in the ER and told you need to come follow-up quickly. Print Language: Syriac Disposition Disposition: Home, Self Care Discharge Date/Time: 05/22/25 12:34
[2025-05-22] MEDS: 0.9% Normal Saline (1000mL) 1,000 ML 999 ML IV (07:58)
[2025-05-22 08:09] LABS: Hematocrit 35.5 % (40-54); Hemoglobin 12.3 g/dL (13.0-16.5); Immature Granulocytes Count 0.020 X10^3/uL (0.0-0.0); Mean Corp Hgb Conc 34.6 g/dL (32-36); Mean Corpuscular Volume 82.0 fL (80-94); Mean Platelet Vol. 8.8 fl (6.2-12.0); NRBC Flagged by Analyzer 0 % (0-5); Platelet Count 151 K/mm3 (150-450); RBC Distribution Width CV 13.8 % (11.6-14.6); RBC Distribution Width SD 40.8 fl (35.1-43.9); Red Blood Count 4.33 M/mm3 (4.6-6.2); White Blood Count 6.7 K/mm3 (4.4-11.0)
[2025-05-22 08:59] LABS: AST(SGOT) 13 U/L (<=37); Alanine Aminotransfer ALT/SGPT 10 U/L (<=46); Albumin, Serum 3.6 g/dL (3.4-4.8); Alkaline Phosphatase 79 U/L (40-129); Anion Gap 10 (5-15); BUN 16 mg/dL (4-19); BUN/Creat Ratio 17.8 RATIO (10-20); Calcium,Total 9.3 mg/dL (7.6-11.0); Carbon Dioxide 29.9 mmol/L (21.0-32.0); Chloride 100 mmol/L (98-108); Estimated Creatinine Clearance 103.13 ml/min (50-250); Globulin 2.5 g/dL (2.2-4.2); Glucose 183 mg/dL (70-99); Magnesium 1.3 mg/dL (1.5-2.2); Potassium 4.0 mmol/L (3.3-5.1)
[2025-05-22 09:01] VITALS: BP 134/78; PULSE 76; RESP 14; O2SAT 98
[2025-05-22] MEDS: Magnesium Sulfate 2 GM in Dextrose 5%-Water (100mL Bag) 100 ML IV (09:37)
[2025-05-22 11:00] VITALS: BP 142/65; PULSE 78; RESP 23; O2SAT 96
[2025-05-22 12:32] VITALS: BP 129/76; PULSE 66; RESP 18; TEMP 36.6; O2SAT 99
== END 2025-05-22 12:34 | disposition home or self-care (01) ==
PROVIDERS: Emergency Provider Emergency Medicine; PCP Family Medicine; Visit Provider Emergency Medicine
DX: R19.7 Diarrhea, unspecified (principal); J44.9 Chronic obstructive pulmonary disease, unspecified; E11.9 Type 2 diabetes mellitus without complications; K92.2 Gastrointestinal hemorrhage, unspecified; E83.42 Hypomagnesemia; I25.10 Atherosclerotic heart disease of native coronary artery without angina pectoris; I25.2 Old myocardial infarction
CPT/HCPCS: 80053; 82274; 83735; 85025; 93005; 96365; 96366; 99285; A4216

== ENCOUNTER 2025-05-29 22:04 | Emergency (ER) | payer MEDICARE, OTHER, MEDICAID, SELFPAY ==
[2025-05-29 22:05] VITALS: BP 125/76; PULSE 75; RESP 16; TEMP 37.1; O2SAT 98; BMI 28.8
--- NOTE | 2025-05-29 22:27 | EKG12_ITS ---
Test Reason : GEN ILL Blood Pressure : */* mmHG Vent. Rate : 77 BPM Atrial Rate : 77 BPM P-R Int : 184 ms QRS Dur : 80 ms QT Int : 388 ms P-R-T Axes : 53 -41 29 degrees QTcB Int : 439 ms Normal sinus rhythm Left axis deviation Abnormal ECG Confirmed by TESSA TRACY, MENDY ([id number]), video effects editor JADEN HERNANDEZ ([id number]) on 05/30/2025 8:40:48 AM Referred By: Confirmed By: MENDY ZARATE MD
[2025-05-29 22:32] LABS: Hematocrit 36.6 % (40-54); Hemoglobin 12.5 g/dL (13.0-16.5); Immature Granulocytes Count 0.030 X10^3/uL (0.0-0.0); Mean Corp Hgb Conc 34.2 g/dL (32-36); Mean Corpuscular Volume 84.1 fL (80-94); Mean Platelet Vol. 9.0 fl (6.2-12.0); NRBC Flagged by Analyzer 0 % (0-5); Platelet Count 204 K/mm3 (150-450); RBC Distribution Width CV 13.7 % (11.6-14.6); RBC Distribution Width SD 42.3 fl (35.1-43.9); Red Blood Count 4.35 M/mm3 (4.6-6.2); White Blood Count 8.3 K/mm3 (4.4-11.0)
[2025-05-29 22:48] LABS: AST(SGOT) 16 U/L (<=37); Alanine Aminotransfer ALT/SGPT 12 U/L (<=46); Albumin, Serum 3.8 g/dL (3.4-4.8); Alkaline Phosphatase 83 U/L (40-129); Anion Gap 11 (5-15); BUN 19 mg/dL (4-19); BUN/Creat Ratio 21.4 RATIO (10-20); Calcium,Total 8.9 mg/dL (7.6-11.0); Carbon Dioxide 23.3 mmol/L (21.0-32.0); Chloride 107 mmol/L (98-108); Estimated Creatinine Clearance 116.80 ml/min (50-250); Globulin 2.8 g/dL (2.2-4.2); Glucose 117 mg/dL (70-99); Lipase 24 U/L (13-75); Potassium 4.2 mmol/L (3.3-5.1)
--- NOTE | 2025-05-29 23:10 | ED.VIS.GI ---
HPI HPI - GI History of Present Illness Chief Complaint: Abd Pain Informant: patient Narrative Narrative: Patient 65-year-old male with history of COPD, insulin-dependent diabetes mellitus, hypertension, hyperlipidemia, pancreatitis and chronic diarrhea presenting with diarrhea. Patient has been having ongoing diarrhea for about a year but it is been worse today. He states he had a relatively large meal including baked beans, Saulsberry steak and hotdogs and after that the diarrhea developed. He denies any associated pain. Denies any nausea or vomiting. Denies any fever or chills. States this feels like his prior episodes of diarrhea. Does tell me that he did resume his insulin and his blood sugars been doing much better (in the 120s now). Taking his insulin twice a day. He also tells me that he has an ongoing itchy rash is wondering he can take for it. Of note patient has been seen for this complaint multiple times in the ER over the past 6 months. 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 Esophageal candidiasis Current use of insulin Back pain due to injury Restless legs Injury of head and neck COPD (chronic obstructive pulmonary disease) High cholesterol History of stress test Depression Chronic pain Non-smoker Sleep apnea Diabetes Hyperlipidemia Hypertension Myocardial infarct Home Medications ?Medication ?Instructions ?Recorded ?Last Taken ?Type metformin 500 mg tablet,extended 500 mg PO BID diabetes 05/02/19 03/18/22 History release 24 hr glipizide 5 mg tablet 5 mg PO BID diabetes 03/19/22 03/18/22 History insulin glargine 100 unit/mL (3 10 unit subcut BID diabetes 03/19/22 03/18/22 History mL) subcutaneous pen (Lantus Solostar U-100 Insulin) hydrocortisone 1 % topical cream 1 applic topical TID PRN skin 08/26/23 Unknown Rx irritation #28.4 grams ibuprofen 600 mg tablet 600 mg PO Q8H PRN PRN pain #20 08/26/23 Unknown Rx TABLETS insulin glargine 100 unit/mL 1 unit subcut QPM 09/29/23 Unknown History subcutaneous solution (Lantus U-100 Insulin) levothyroxine 100 mcg tablet 100 mcg PO DAILY 09/29/23 Unknown History cyclobenzaprine 10 mg tablet 10 mg PO TID PRN Muscle Spasm #15 08/10/24 Unknown Rx TABLETS aspirin 81 mg tablet,delayed 81 mg PO DAILY 02/16/25 Unknown History release (Adult Aspirin Regimen) doxycycline hyclate 100 mg capsule 100 mg PO BID 7 days #14 caps 02/16/25 Unknown Rx gabapentin 100 mg capsule 100 mg PO TID #90 caps 04/21/25 Unknown Rx metformin 500 mg tablet 500 mg PO BID 30 days #60 tabs 05/03/25 Unknown Rx sulfamethoxazole 800 1 tab PO BID 7 days #14 tabs 05/03/25 Unknown Rx mg-trimethoprim 160 mg tablet (Bactrim DS) pantoprazole 20 mg tablet,delayed 20 mg PO DAILY #30 tabs 05/22/25 Unknown Rx release (Protonix) [id number] 1 cap PO TID 05/23/25 Unknown History 36,000-114,000-180,000 unit capsule,delay rel (Creon) hydroxyzine HCl 25 mg tablet 25 mg PO TID PRN itching #20 tabs 05/29/25 Unknown Rx Allergy/AdvReac Type Severity Reaction Status Date / Time diphenhydramine HCl (From Allergy Rash Verified 05/29/25 22:05 Benadryl) Penicillins Allergy Rash Verified 05/29/25 22:05 venom-honey bee (bee venom Allergy Swelling Verified 05/29/25 22:05 (honey bee)) Surgical History H/O hernia repair Hx of left knee surgery Hx of inguinal herniorrhaphy History of coronary artery stent placement Social History household members: none Smoking Status: Never smoker substance use type: does not use ROS ROS ED Constitutional Constitutional ED: Denies chills or fever(s) Respiratory/Chest Respiratory/Chest: Denies cough Gastrointestinal Gastrointestinal: Reports diarrhea; Denies abdominal pain, nausea or vomiting Genitourinary Genitourinary ED: Denies dysuria Musculoskeletal Musculoskeletal: Denies arthralgias or myalgias Integumentary Reports rash Neurologic Neurologic: Denies weakness EXAM Physical Exam Const Vital Signs: 05/29/25 22:05 Temperature 98.8 F Temperature Source Oral Pulse Rate 75 Respiratory Rate 16 Blood Pressure 125/76 H Blood Pressure Mean 92 Pulse Ox 98 Oxygen Delivery Method Room Air Positive well nourished and well developed General Appearance ED: well developed and NAD HEENT Reports moist mucous membranes Neck supple Resp normal respiratory effort and clear to auscultation bilaterally Cardio regular rate and regular rhythm GI non-tender and non-distended Auscultation: normoactive bowel sounds Palpation: soft; Negative for tender or guarding Extremity General Extremety ED: Negative for edema General Extremity: Negative for edema Neuro moves all extremities Sensorium / Orientation: alert, oriented to person, oriented to place and oriented to time Motor Exam: Negative for general weakness Psych mental status grossly normal and thought process normal Skin Skin Narrative: Scattered abrasions and ulcerated scabbed over lesions on the extremities and most pronounced on the right back consistent with prurigo MDM MDM MDM Narrative Medical decision making narrative: Patient evaluated for recurrent diarrhea. He is well-appearing normal vital signs. Differential includes infectious diarrhea, chronic diarrhea (patient is on Creon), diverticulitis (lower suspicion as no fever, pain or leukocytosis), functional diarrhea and electrolyte derangement/TARYN. Lab work largely normal and reassuring. Denies any bleeding associated with his diarrhea. Do not think he requires any CT imaging. I did order urinalysis and's stool studies however patient unable provide samples. I do not think he needs to stay longer so she is more of a chronic condition is not having any urinary symptoms and that he has a benign abdominal exam. For his itching will prescribe hydroxyzine to see if this helps. Is given return precautions. Encouraged an appointment with his family doctor. I discussed to avoid eating a particularly heavy meals and space out his eating more throughout the day. He verbalized understand this. Discharged home in stable condition. Did review GI visit note from 05/23/2025?was offered colonoscopy refused. Encouraged to increase his Creon to 3 capsules with every meal, 2 capsule with a snack and 1 capsule with beverage that contains calories. Was not taking it correctly. Lab Data Attestation: I reviewed the patient's lab results. Labs: Laboratory Results - last 24 hr 05/29/25 22:25 WBC 8.3 RBC 4.35 L Hgb 12.5 L Hct 36.6 L MCV 84.1 MCH 28.7 MCHC 34.2 RDW Std Deviation 42.3 RDW Coeff of Manjinder 13.7 Plt Count 204 MPV 9.0 Immature Gran % (Auto) 0.400 Neut % (Auto) 60.2 Lymph % (Auto) 23.1 [place] % (Auto) 9.6 Eos % (Auto) 5.9 H Baso % (Auto) 0.8 Absolute Neuts (auto) 5.0 Absolute Lymphs (auto) 1.92 Nucleated RBC % 0 Sodium 141 Potassium 4.2 Chloride 107 Carbon Dioxide 23.3 Anion Gap 11 BUN 19 Creatinine 0.87 Estim Creat Clear Calc 116.80 Est GFR (MDRD) Non-Af 96 BUN/Creatinine Ratio 21.4 H Glucose 117 H Calcium 8.9 Total Bilirubin 0.31 AST 16 ALT 12 Alkaline Phosphatase 83 Total Protein 6.6 Albumin 3.8 Globulin 2.8 Albumin/Globulin Ratio 1.4 Lipase 24 Discharge Plan Triage Chief Complaint: Abd Pain Other Complaint: Diarrhea ED Provider: Antonette Dominguez Dx/Rx/DC Orders Clinical Impression: Diarrhea, Prurigo Instructions: ED Diarrhea, Unknown Cause Prescriptions: New hydroxyzine HCl 25 mg tablet 25 mg PO TID PRN (Reason: itching) Qty: 20 0RF No Action Creon 36,000-114,000- 180,000 unit capsule,delayed release(DR/EC) 1 cap PO TID Rx Instructions: administer with meals and/or snacks metformin 500 MG tablet 500 mg PO BID Patient Comments: diabetes insulin glargine [Lantus Solostar U-100 Insulin] 100 unit/mL (3 mL) Insulin Pen 10 unit SUBCUT BID glipizide 5 mg tablet 5 mg PO BID Rx Instructions: Hold if glucose less than 130 mg/dl ibuprofen 600 mg tablet 600 mg PO Q8H PRN PRN (Reason: pain) Qty: 20 0RF hydrocortisone 1 % cream 1 applic topical TID PRN (Reason: skin irritation) Qty: 28.4 0RF levothyroxine 100 mcg tablet 100 mcg PO DAILY Patient Comments: Take 1 tab by mouth once daily on an empty stomach insulin glargine [Lantus U-100 Insulin] 100 unit/mL solution 1 unit subcut QPM cyclobenzaprine 10 mg tablet 10 mg PO TID PRN (Reason: Muscle Spasm) Qty: 15 0RF aspirin [Adult Aspirin Regimen] 81 mg tablet,delayed release (DR/EC) 81 mg PO DAILY doxycycline hyclate 100 mg capsule 100 mg PO BID 7 Days Qty: 14 0RF gabapentin 100 mg capsule 100 mg PO TID Qty: 90 0RF sulfamethoxazole-trimethoprim [Bactrim DS] 800-160 mg tablet 1 tab PO BID 7 Days Qty: 14 0RF metformin 500 mg tablet 500 mg PO BID 30 Days Qty: 60 0RF pantoprazole [Protonix] 20 mg tablet,delayed release (DR/EC) 20 mg PO DAILY Qty: 30 0RF Primary Care Provider: Linden Chavez Referrals: Linden Chavez, [Primary Care Provider] - Activity Restrictions/Additional Instructions: Avoid eating overly heavy meals. Your lab work and vital signs were normal today. Per the GI office notes if you eat a heavy meal you should actually take 3 capsules of your Creon. You should have 2 capsules with snacks and 1 capsule of beverages that contain calories. Print Language: Kiswahili Disposition Disposition: Home, Self Care
--- OUTSIDE RECORDS SUMMARY | 2025-05-29 23:34 | XMS RPT_ITS | CCD ---
Author Organization [facility] Care Team Providers Care Optical Coating Technician Name Role Phone Unavailable Primary Care Provider [...] Provider Dr. Pedro Krishnan DO Emergency Provider Dr. Pedro Krishnan DO Attending Provider Dr. Antonette Dominguez DO Emergency Provider Dr. Linden Chavez DO Referring Provider [phone] Brien DIGITAL CAMERA TECHNICIAN-CRosio Attending Provider [phone] Panchito Castillo Attending Unavailable Care Physician, No Primary Primary Care Unava ilable Johann Lemons Attending Unavailable Scott, Linden Primary Care Unavailable Rosio Tesfaye Attending Unavailable ScottLinden short Referring Unavailable Scott, Linden Primary Care Unavailable Care Physician, No Primary Primary Care Unava ilable Johann Lemons Attending Unavailable Care Physician, No Primary Primary Care Unava ilable Buster Pereyra Attending Unavailable Scott, Linden Primary Care Unavailable Scott, Linden Attending Unavailable Scott, Linden Primary Care Unavailable Scott, Linden Attending Unavailable Care Physician, No Primary Primary Care Unava ilable Ar Calle Attending Unavailable Antonette Dominguez Attending Unavailable Scott, Linden Primary Care Unavailable Pedro Krishnan Attending Unavailable Scott, Linden Primary Care Unavailable Johann Lemons Attending Unavailable Scott, Linden Primary Care Unavailable Adam Allen Attending Unavailable Scott, Linden Primary Care Unavailable Live Ashley Attending Unavailable Scott, Linden Primary Care Unavailable Care Physician, No Primary Primary Care Unava ilable Pedro Krishnan Attending Unavailable Care Physician, No Primary Primary Care Unava ilable Barry Mathew Attending Unavailable Care Physician, No Primary Primary Care Unava ilable Avni Cash Attending Unavailable Allergies Allergy Classification Reported Allergen(s) Allergy Type Date of Onset Reaction(s) Facility (20 sources) bee venom Propensity to adverse reactions to drug 9 Swelling [place], [place] (2 sources) diphenhydrAMINE; Translations: [DIPHENHYDRAMINE] Drug Allergy 1 [place], [place] (8 sources) Penicillins; Translations: [PENICILLINS] Propensity to adverse reactions to drug 1 [place], [place] (20 sources) diphenhydrAMINE; Translations: [diphenhydramine HCl] Drug Allergy 2 [facility] (20 sources) Penicillins Allergy to substance [address] [facility] (3 sources) diphenhydrAMINE Drug Allergy 1 Swelling [facility] Work Phone: (3 sources) Penicillins Drug Allergy 1 [facility] Work Phone: (4 sources) Bee Sting; Translations: [BEE STING] Allergy to substance 1 Swelling [facility] Work Phone: (1 source) Penicillins Drug allergy (disorder) [address] [facility] (1 source) venom-honey bee Drug allergy (disorder) [address] [facility] Medications Current Medications Medication Drug Class(es) Dates Sig (Normalized) Sig (Original) [id number] 200 actuat albuterol 0.09 mg/actuat metered dose [...] in structed every 4 hours as needed. amylase 313047 unt / lipase 43015 unt / protease [id number] unt delayed release oral capsule (1 source) Start: 05-23-2025 take [id number] capsules by mouth three times daily at mealtime Bawsjh-Rxxwaqec-Hb ylase (Creon) 36,000-114,000- 180,000 unit capsule,delayed release(DR/EC) Active 1 NMA PO THREE TIMES A DAY May 23, 2025 12:00am administer with meals and/or snacks aspirin 81 mg delayed release oral tablet [...] A DAY as needed for Muscle Spasm 15 August 10, 2024 12:00am Start: 10-06-2019 End: [...] Indications: Eustachian tube dysfunction, bilateral Use 1 [place] in each nostril once daily. 9.9 mL 12/14/2024 Active gabapentin 100 mg oral capsule (9 sources) Anti-epileptic Agent Start: 04-21-20 take 1 capsule by mouth three times daily Gabapentin 100 mg capsule Active 100 mg PO THREE TIMES A DAY 90 0 April 21, 2025 12:00am Start: 11-12-2019 take 1 capsule by mo uth once daily at bedtime gabapentin (NEURONTIN) 300 mg capsule Indications: Lumbar radiculopathy Take 1 capsule by mouth daily at bedtime for 30 days. 30 capsule 11/12/2019 Active Comment on above: Take 1 capsule by mo uth daily at bedtime for 30 days. glucagon (rdna) 1 mg injection (1 source) Antihypoglycemic Agent Start: 10-05-2019 glucagon (rDNA) injection 1 mg 150 ml glucose 50 mg/ml injection (3 sources) Start: 10-05-2019 glucose (GLUTOSE) 40 % oral gel 15 g Start: 10-05-2019 dextrose 50 % IV solution Start: 10-05-2019 dextrose 5 % s olution hydrocortisone 10 mg/ml topical cream (20 sources) Corticosteroid Start: 08-26-2023 Hydrocortisone 1 % [...] Comment on above: Take 1 tablet by [facility] once daily. metFORMIN hydrochloride 500 mg oral [...] 9:49pm Start: 01-30-2021 take 4 tablets by [facility] once daily metFORMIN ER (GLUCOPHAGE XR) [...] 2016 12:25pm Diabetes take 4 tablets by [facility] once daily at breakfast metFORMIN (GLUCOPHAGE-XR) 500 MG extended release tablet Take 2,000 mg by mouth daily (with breakfast) 0 Active Comment on above: Take 4 tablets by [facility] once daily for 14 days. naproxen 500 mg oral tablet (3 sources) Nonsteroidal Anti-inflammatory Drug Start: 9 take 1 tablet by mouth twice daily at mealtime naproxen (NAPROSYN) 500 mg tablet Indications: Trapezius strain, left, initial encounter Take 1 tablet by mouth twice daily with meals. 20 tablet 09/12/2019 Active Comment on above: Take 1 tablet by [facility] twice daily with meals. omeprazole 20 mg [...] Comment on above: Take 1 capsule by [facility] daily before breakfast for 14 days. 1/2 hr before meal. Oral Medication Containers misc (3 sources) Start: 4 Oral Medication Containers misc Indications: Diabetes mellitus, type II, insulin dependent (HCC) , Hypertension , Coronary artery disease , Hypothyroidism Use as directed 1 Each 0 04/26/2014 Active Comment on above: Use as directed pantoprazole 20 mg delayed release oral tablet (2 sources) Proton Pump Inhibitor Start: 5 take 1 tablet by mouth once daily Pantoprazole (Protonix) 20 mg tablet,delayed release (DR/EC) Active 20 mg PO DAILY 30 0 May 22, 2025 12:00am 3 ml sodium chloride 9 mg/ml injection (5 sources) Start: 9 sodium chloride flush 0.9 % injection 10 mL Start: 10-05-2019 End: 10-06-2019 0.9 % sodium chloride infusi on sulfamethoxazole 800 mg / trimethoprim 160 mg oral tablet (3 sources) Dihydrofolate Reductase Inhibitor Antibacterial, Sulfonamide Antimicrobial Start: 05-03-2025 Sulfamethoxazole-Trimethopri m (Bactrim Ds) 800-160 mg tablet Active 1 {tbl} PO TWICE A DAY 14 7 0 Alesha 4th, 2025 12:00am (2 sources) Start: 09-29-2023 Start: [...] / oxyCODONE hydrochloride 5 mg oral tablet (8 sources) Opioid Agonist Start: 08-10-2024 End: 10-19-2024 [...] primary doctor cefdinir 300 mg oral capsule (8 sources) Cephalosporin Antibacterial Start: 12-27-2024 End: 02-16-2025 take 1 capsule by mouth every twelve hours Cefdinir 300 mg capsule Discontinued 300 mg PO Q12H 14 December 27, 2024 1:00am February 16, 2025 4:05am ciprofloxacin 500 mg oral tablet (19 sources) Quinolone Antimicrobial Start: 09-29-2023 End: 05-18-2024 take 1 tablet by mouth twice daily Ciprofloxacin Hcl (Cipro) 500 mg tablet Discontinued 500 mg PO TWICE A DAY 20 September 29, 2023 1:00am May 18, 2024 8:10am dicyclomine hydrochloride 20 mg oral tablet (20 sources) Anticholinergic Start: 08-07-2022 End: 02-16-2025 take 1 tablet by mouth three times daily Dicyclomine 20 mg tablet Discontinued 20 mg PO THREE TIMES A DAY 20 November 27, 2024 1:00am February 16, [...] 8:34am magnesium citrate 58.2 mg/ml oral solution (16 sources) Start: 12-08-2023 End: 02-16-2025 Magnesium Citrate [...] premix meclizine hydrochloride 25 mg oral tablet (16 sources) Antiemetic Start: 12-08-2023 End: 02-16-2025 take [...] End: 11-11-2013 metroNIDAZOLE 500 mg oral tablet (19 sources) Nitroimidazole Antimicrobial Start: 09-29-2023 End: 05-18-2024 [...] remain phenazopyridine hydrochloride 200 mg oral tablet (8 sources) Start: 12-27-2024 End: 02-16-2025 take 1 tablet by mouth three times daily Phenazopyridine (Pyridium) 200 mg tablet Discontinued 200 mg PO THREE TIMES A DAY 10 0 December 27, 2024 1:00am February 16, 2025 4:06am polyethylene glycol 3350 63116 mg powder for oral solution (18 sources) Osmotic Laxative Start: 03-08-2024 End: 02-16-2025 [...] abuse, in remission] 11-25-2022 Chronic Allergic reactions (20 sources) Inflammatory dermatosis; Translations: [Dermatitis, unspecified] 08-26-2023 [...] unspecified, without bleeding] 10-06-2019 Episodic Gastrointestinal hemorrhage (18 sources) Black feces; Translations: [Melena] 10-01-2023 Episodic Headache; including migraine (20 sources) Headache; Translations: [Headache] 10-17-2019 Episodic Malaise and fatigue (20 sources) Asthenia; Translations: [Weakness] Onset: Episodic Nausea and vomiting (20 sources) Nausea; Translations: [Nausea] 05-04-2022 Episodic Noninfectious gastroenteritis (20 sources) Colitis; Translations: [...] Constipation; Translations: [Constipation, unspecified] 03-08-2024 Episodic Other gastrointestinal disorders (2 sources) Occult blood in stools; Translations: [Other fecal abnormalities] 05-22-2025 Episodic Other infections; including parasitic (20 sources) [...] injuries and conditions due to external causes (3 sources) Other specified injuries of thorax, initial encounter; Translations: [Contusion of rib on right side] 05-16-2021 Episodic Other lower respiratory disease (8 sources) History of chronic obstructive airway disease; Translations: [Personal history of other diseases of the respiratory system] 12-28-2024 Episodic Other nutritional; endocrine; and metabolic disorders (2 sources) Hypomagnesemia; Translations: [Hypomagnesemia] 05-22-2025 Chronic Other nutritional; endocrine; and metabolic disorders (20 [...] Translations: [Noncompliance] 12-10-2022 Episodic Residual codes; unclassified (20 sources) Altered mental status; Translations: [Altered mental [...] source) Cough, unspecified; Translations: [Cough, unspecified] Onset: 04-24-202 5 Urinary tract infections (8 sources) Acute urinary tract infection; Translations: [Urinary [...] 11-30-2012 Episodic Diseases of mouth; excluding dental (9 sources) Xerostomia; Translations: [Dry mouth, unspecified] Onset: 12-26-2024 12-16-2024 Episodic Fracture of lower limb (2 sources) Fracture of ankle; Translations: [Other fracture of left lower leg, initial encounter for closed fracture] Onset: 10-13-2015 Resolved: 09-16-2017 09-16-2017 Episodic Genitourinary symptoms and ill-defined conditions (20 sources) Increased frequency of urination; Translations: [Frequency of micturition] Onset: 01-10-2025 12-16-2024 Episodic Other connective tissue disease (3 sources) Foot pain; Translations: [Pain in unspecified foot] Onset: 09-17-2011 09-17-2011 Episodic Unclassified (6 sources) Abrasion, left knee, initial encounter 04-21-2025 Results Test Name Value Interpretation Reference Range Facility Gastroenterology Visit Repor ton 05-23-2025 Gastroenterology Visit Report [facility] [address] [place] [address] OFFICE VISIT Date of Service: 05/23/25 MR#: [id number] Acct: [id number] Name: JERALD YODER Rep #: [id number] : 1960 Provider: HENNA myers Age/Sex: 65/M [place] [facility] [place] Status: Signed Intake Vital Signs 05/22/25 07:03 Height 6 ft 5 in Intake Visit Reasons: ER FOLLOW UP - BLEEDING Chief Complaint: weakness Allergies diphenhydramine HCl (From Benadryl) Allergy (Verified 05/22/25 07:02) Rash Penicillins Allergy (Verified 05/22/25 07:02) Rash venom-honey bee (bee venom (honey bee)) Allergy (Verified 05/22/25 07:02) Swelling Medications ???Medication ???Instructions ???Recorded ???Confirmed ???Type metformin 500 mg tablet,extended 500 mg PO BID diabetes 05/02/19 History release 24 hr glipizide 5 mg tablet 5 mg PO BID diabetes 03/19/2201/29 History insulin glargine 100 unit/mL (3 10 unit subcut BID diabetes 02/16/25 History mL) subcutaneous pen (Lantus Solostar U-100 Insulin) hydrocortisone 1 % topical cream 1 applic topical TID PRN skin 08/0102/16/25 Rx irritation #28.4 grams ibuprofen 600 mg tablet 600 mg PO Q8H PRN PRN pain #20 02/16/25 Rx TABLETS insulin glargine 100 unit/mL 1 unit subcut QPM 09/29/23 5 History subcutaneous solution (Lantus U-100 Insulin) levothyroxine 100 mcg tablet 100 mcg PO DAILY 09/29/23 02/16/25 History cyclobenzaprine 10 mg tablet 10 mg PO TID PRN Muscle Spasm #15 08/10/24 02/16/25 Rx TABLETS aspirin 81 mg tablet,delayed 81 mg PO DAILY 02/16/25 02/16/25 H istory release (Adult Aspirin Regimen) doxycycline hyclate 100 mg capsule 100 mg PO BID 7 days #14 caps Rx gabapentin 100 mg capsule 100 mg PO TID #90 caps 04/21/25 Rx metformin 500 mg tablet 500 mg PO BID 30 days #60 tabs 02/22 Rx sulfamethoxazole 800 1 tab PO BID 7 days #14 tabs 05/03 Rx mg-trimethoprim 160 mg tablet (Bactrim DS) pantoprazole 20 mg tablet,delayed 20 mg PO DAILY #30 tabs 05/22/25 Rx release (Protonix) pxchhl-aecgpfgl-oucupus 1 cap PO TID 05/23/25 05/23/25 His tory 36,000-114,000-180,000 unit capsule,delay rel (Creon) Have you fallen in the past year?: No [facility] Medical History 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 Esophageal candidiasis Current use of insulin Back pain due to injury Restless legs Injury of head and neck COPD (chronic obstructive pulmonary disease) High cholesterol History of stress test Depression Chronic pain Non-smoker Sleep apnea Diabetes Hyperlipidemia Hypertension Myocardial infarct Surgical History H/O hernia repair Hx of left knee surgery Hx of inguinal herniorrhaphy History of coronary artery stent placement Social History household members: none Smoking Status: Never smoker substance use type: does not use HPI HPI Chief Complaint: weakness Details: JERALD YODER, is a 65 M who presents to the office today for establishment with [facility] regarding concerns of frequent diarrhea with urgency and incontinence. He had presented to [facility] emergency room on May 22, 2025 with recurrent diarrhea elevated blood glucose and generalized weakness. Reports limited physical ability due to chronic back pain which led to multiple episodes of bowel incontinence. States he has been trying to take Imodium and Pepto-Bismol but it has not helped significantly. Does admit to crampy abdominal pain just before the loose bowel movements which then dissipates after the BM. States that his PCP had placed him on a medication that started with a C that was to help him with his chronic diarrhea and he now has a new insurance which is covering this medication and he has since restarted it. The GI office staff called primary care, the medication in reference was Creon. Biochemical diagnostics performed while in ER were insignificant with the exception of elevated blood glucose of 183 and hypomagnesemia of 1.3. No imaging was obtained. He was stool occult blood positive. He reports that he is taking his Creon capsule daily with first meal. He denies difficulty chewing and swallowing despite missing quite a few teeth, denies cough, frequent throat clearing, heartburn, reflux, abdominal pain, bloating, constipation, and hematochezia. Denies exposure to any known ill persons, travel out of the country, change in water source. Denies fevers or chills associated with diarrhea. ROS Const Constitutional: Positive for fatigue, fever(s) and weight change ENT ENT: Positive for difficulty swal (more content not included)... Normal [facility] 12 Lead EKGon 05-22-2025 12 Lead EKG [facility] Cardiovascular Services [address] [place] [address] 12 Lead EKG 05/22/25 0753 MR#: [id number] Acct: [id number] Name: JERALD YODER Rep #: [id number] : 1960 65 From: Cliff Cook MD Attending Dr: Status: DEP ER Ordering Dr: Antonette Dominguez DO Date: 05/22/25 Location: ED Sex: M C Admitted: Test Reason : WEAKNESS Blood Pressure : */* mmHG Vent. Rate : 68 BPM Atrial Rate : 68 BPM P-R Int : 186 ms QRS Dur : 92 ms QT Int : 410 ms P-R-T Axes : 47 -38 34 degrees QTcB Int : 435 ms Normal sinus rhythm Left axis deviation Abnormal ECG Confirmed by MITALI TRACY, TABBY ([id number]), videotape editor ТАТЬЯНА HUIZAR ([id number]) on 05/24/2025 1:13:34 PM Referred By: Confirmed By: TABBY COOK MD 05/24/25 1313 Date Cliff Cook MD CC: Dr. Antonette Dominguez DO; Dr. Linden Chavez DO Signed Normal [facility] Absolute lymphocyte countOrd ered By: Antonette Dominguez on 05-22-2025 Lymphocytes Auto (Unsp spec) [#/Vol] 1.32 10*3/uL 0.83-4.[address] [facility] Absolute neutrophil countOrd ered By: Antonette Dominguez on 05-22-2025 Neutrophils (Bld) [#/Vol] 4.5 10*3/uL 2.0-7.[address] [facility] Anion gap in Serum or Plasma Ordered By: Antonette Dominguez on 05-22-2025 Anion gap [Moles/Vol] 10 mmol/L 5-15 [facility] Automated lymphocyte count a s percentage of total leukocytesOrdered By: Antonette Dominguez on 05-22-2025 Lymphocytes/100 WBC Auto (Unsp spec) 19.8 % - [facility] BUN/creatinine ratioOrdered By: Antonette Dominguez on 05-22-2025 Urea nitrogen/Creatinine [Mass ratio] 17.8 mg/mg 10- [facility] Basophil percentageOrdered B y: Antonette Dominguez on 05-22-2025 Basophils/100 WBC (Bld) 0.6 % 0-1 [facility] Bilirubin, totalOrdered By: Antonette Dominguez on 05-22-2025 Bilirubin [Mass/Vol] 0.27 mg/dL 0.00-1.30 [facility] CBC W/Diff, Automatedon 05-01 Absolute Lymph 1.32 X10 3/uL Normal 0.83-4.[address] [facility] Comment on above: Performed By: #### L 100.0100 ####[facility] [address] [place], [address] Absolute Neut 4.5 X10 3/uL Normal 2.0-7.[address] [facility] Comment on above: Performed By: #### L 100.0100 ####[facility] [address] [place], [address] Basophils/100 WBC (Bld) 0.6 % Normal 0-1 [facility] Comment on above: Performed By: #### L 100.0100 ####[facility] [address] [place], [address] Eosinophils/100 WBC (Bld) 4.5 % Normal 0-[address] [facility] Comment on above: Performed By: #### L 100.0100 ####[facility] [address] [place], [address] Erythrocyte distribution width (RBC) [Ratio] 13.8 % Normal 11.6-14.[address] [facility] Comment on above: Performed By: #### L 100.0100 ####[facility] [address] [place], [address] Hematocrit (Bld) [Volume fraction] 35.5 % Low 40-[address] [facility] Comment on above: Performed By: #### L 100.0100 ####[facility] [address] [place], [address] Hemoglobin (Bld) [Mass/Vol] 12.3 g/dL Low 13.0-16.[address] [facility] Comment on above: Performed By: #### L 100.0100 ####[facility] [address] [place], [address] IG% 0.300 Normal 0.0-0.[address] [facility] Comment on above: Result Comment: IG% - Immature Granulocytes (promyelocytes, myelocytes and metamyelocytes) > 1% indicates that a LEFT SHIFT is Present. Performed By: #### L 100.0100 ####[facility] [address] [place], [address] Lymphocytes/100 WBC (Bld) 19.8 % Normal 19-[address] [facility] Comment on above: Performed By: #### L 100.0100 ####[facility] [address] [place], [address] MCH (RBC) [Entitic mass] 28.4 pg Normal 27.0-32.[address] [facility] Comment on above: Performed By: #### L 100.0100 ####[facility] [address] [place], [address] MCHC (RBC) [Mass/Vol] 34.6 g/dL Normal 32-36 [facility] Comment on above: Performed By: #### L 100.0100 ####[facility] [address] [place], [address] MCV (RBC) [Entitic vol] 82.0 fL Normal 80-94 [facility] Comment on above: Performed By: #### L 100.0100 ####[facility] [address] [place], [address] Monocytes/100 WBC (Bld) 7.7 % Normal 0-10 [facility] Comment on above: Performed By: #### L 100.0100 ####[facility] [address] [place], [address] Neutrophils/100 WBC (Bld) 67.1 % Normal 47-[address] [facility] Comment on above: Performed By: #### L 100.0100 ####[facility] [address] [place], [address] Nucleated RBC (Bld) [#/Vol] 0 10*3/uL Normal 0-[address] [facility] Comment on above: Performed By: #### L 100.0100 ####[facility] [address] [place], [address] Platelet mean volume (Bld) [Entitic vol] 8.8 fL Normal 6.2-12.[address] [facility] Comment on above: Performed By: #### L 100.0100 ####[facility] [address] [place], [address] Platelets (Bld) [#/Vol] 151 10*3/uL Normal 150-[address] [facility] Comment on above: Performed By: #### L 100.0100 ####[facility] [address] [place], [address] RBC (Bld) [#/Vol] 4.33 10*6/uL Low 4.6-6.2 [facility] Comment on above: Performed By: #### L 100.0100 ####[facility] [address] [place], [address] RDW SD 40.8 fl Normal 35.1-43.[address] [facility] Comment on above: Performed By: #### L 100.0100 ####[facility] [address] [place], [address] WBC (Bld) [#/Vol] 6.7 10*3/uL Normal 4.4-11.0 [facility] Comment on above: Performed By: #### L 100.0100 ####[facility] [address] [place], [address] Carbon dioxide, total [Moles /volume] in Central venous bloodOrdered By: Antonette Dominguez on 05-22-2025 CO2 [Moles/Vol] 29.9 mmol/L 21.0-32.[address] [facility] Chloride assayOrdered By: Gibran Dominguez on 05-22-2025 Chloride [Moles/Vol] 100 mmol/L 98-108 [facility] Comprehensive Metabolic Prof ilon 05-22-2025 Albumin [Mass/Vol] 3.6 g/dL Normal 3.4-4.8 [facility] Comment on above: Performed By: #### L 500.4050, L501.5200 #### [facility] [address] [place], [address] Albumin/Globulin [Mass ratio] 1.4 {ratio} Normal 0.9-2.[address] [facility] Comment on above: Performed By: #### L 500.4050, L501.5200 #### [facility] [address] [place], [address] ALK PHOS 79 U/L Normal 40-[address] [facility] Comment on above: Performed By: #### L 500.4050, L501.5200 #### [facility] [address] [place], [address] ALT [Catalytic activity/Vol] 10 U/L Normal <=[address] [facility] Comment on above: Performed By: #### L 500.4050, L501.5200 #### [facility] [address] [place], [address] AST [Catalytic activity/Vol] 13 U/L Normal <=[address] [facility] Comment on above: Performed By: #### L 500.4050, L501.5200 #### [facility] [address] [place], [address] Bilirubin [Mass/Vol] 0.27 mg/dL Normal 0.00-1.30 [facility] Comment on above: Performed By: #### L 500.4050, L501.5200 #### [facility] [facility] [address] [place], [address] BUN/CRE 17.8 RATIO Normal 10-[address] [facility] Comment on above: Performed By: #### L 500.4050, L501.5200 #### [facility] [address] [place], [address] Calcium [Mass/Vol] 9.3 mg/dL Normal 7.6-11.0 [facility] Comment on above: Performed By: #### L 500.4050, L501.5200 #### [facility] [address] [place], [address] Chloride [Moles/Vol] 100 mmol/L Normal 98-108 [facility] Comment on above: Performed By: #### L 500.4050, L501.5200 #### [facility] [address] [place], [address] CO2 [Moles/Vol] 29.9 mmol/L Normal 21.0-32.[address] [facility] Comment on above: Performed By: #### L 500.4050, L501.5200 #### [facility] [address] [place], [address] Creatinine [Mass/Vol] 0.90 mg/dL Normal 0.70-1.20 [facility] Comment on above: Performed By: #### L 500.4050, L501.5200 #### [facility] [address] [place], [address] ECRCL 103.13 ml/min Normal 50-[address] [facility] Comment on above: Performed By: #### L 500.4050, L501.5200 #### [facility] [address] [place], [address] GAP 10 Normal 5-[address] [facility] Comment on above: Performed By: #### L 500.4050, L501.5200 #### [facility] [address] [place], [address] GFR/1.73 sq M.predicted among non-blacks MDRD (S/P/Bld) [Vol rate/Area] 95 mL/min/{1.73_m2} Normal >[address] [facility] Comment on above: Result Comment: mL/m in/1.73m2 CKD-EPI Creatinine Equation (2020) Performed By: #### L 500.4050, L501.5200 #### [facility] [address] [place], [address] Globulin (S) [Mass/Vol] 2.5 g/dL Normal 2.2-4.2 [facility] Comment on above: Performed By: #### L 500.4050, L501.5200 #### [facility] [address] [place], [address] Glucose [Mass/Vol] 183 mg/dL High 70-99 [facility] Comment on above: Performed By: #### L 500.4050, L501.5200 #### [facility] [address] [place], [address] Potassium [Moles/Vol] 4.0 mmol/L Normal 3.3-5.1 [facility] Comment on above: Performed By: #### L 500.4050, L501.5200 #### [facility] [address] [place], [address] Sodium [Moles/Vol] 139 mmol/L Normal 133-145 [facility] Comment on above: Performed By: #### L 500.4050, L501.5200 #### [facility] [address] [place], [address] T PROT 6.2 g/dL Normal 5.9-8.[address] [facility] Comment on above: Performed By: #### L 500.4050, L501.5200 #### [facility] [address] [place], [address] Urea nitrogen [Mass/Vol] 16 mg/dL Normal 4-[address] [facility] Comment on above: Performed By: #### L 500.4050, L501.5200 #### [facility] [address] [place], [address] Emergency Department Summary on 05-22-2025 Emergency Department Summary [facility] Medical Records Department [address] [place] [address] Emergency Department Summary 05/22/25 MR#: [id number] Acct: [id number] Name: JERALD YODER Rep #: [id number] : 1960 65 From: Antonette Dominguez DO PCP: Dr. Linden Chavez, Status:DEP ER Location: ED HPI History of Present Illness Chief Complaint: Weakness Informant: patient Narrative Narrative: Patient is a 65-year-old male with history of insulin-dependent diabetes mellitus, hypothyroidism, pancreatitis, hypertension and coronary artery disease presenting with recurrent diarrhea, elevated blood glucose and generalized weakness. Patient states he had severe diarrhea 1 to 2 days ago however its improved a little bit today. He did have a very large episode of diarrhea today however. States has been trying to take Imodium Pepto-Bismol with no significantly. Has had some associated black discoloration. Was concerned also because his blood sugar was around 200 however and has been downtrending. Did take his morning insulin. Denies any nausea or vomiting. Does have crampy abdominal pain before the bowel movements. States he is been having these episodes diarrhea for about a year but it was particularly bad over the past few days. Does follow with his primary care doctor who did prescribe him medication for this however he had not been able to pick it up yet because it was too expensive. He anticipates being able to do that shortly however because he has a new insurance coverage. No other complaints or concerns reported at this time. [facility] Medical History Partial traumatic amputation of [...] tablet 5 mg PO BID diabetes 03/19/22 0507/22 History insulin glargine 100 unit/mL (3 10 [...] TID #90 caps 04/21/25 Un known Rx metformin 500 mg tablet 500 mg PO BID 30 days #60 tabs 02/22 Unknown Rx sulfamethoxazole 800 1 tab PO BID 7 days #14 tabs 05/03 Unknown Rx mg-trimethoprim 160 mg tablet (Bactrim DS) pantoprazole 20 mg tablet,delayed 20 mg PO DAILY #30 tabs 05/22/25 Unknown Rx release (Protonix) Allergy/AdvReac Type Severity Reaction Status Date / Time diphenhydramine HCl (From Allergy Rash Verified 05/22/25 07:02 Benadryl) Penicillins Allergy Rash Verified 05/22/25 07:02 venom-honey bee (bee venom Allergy Swelling Verified 05/22/25 07:02 (honey bee)) Surgical History H/O hernia repair Hx of left knee surgery Hx of inguinal herniorrhaphy History of coronary artery stent placement Social History household members: none Smoking Status: Never smoker substance use type: does not use ROS ROS ED Constitutional Constitutional ED: Denies chills or fever(s) Cardiovascular Cardiovascular: Denies chest pain Respiratory/Chest Respiratory/Chest: Denies cough Gastrointestinal Gastrointestinal: Reports abdominal pain and diarrhea; Denies nausea or vomiting Genitourinary Genitourinary ED: Denies dysuria or urinary frequency Musculoskeletal Musculoskeletal: Denies arthralgias or myalgias Integumentary Reports Abrasions and rash Neurologic Neurologic: Reports weakness; Denies headache(s) Hematologic/Lymphatic Hematologic/Lymphatic: Denies easy bleeding or easy bruising EXAM Physical Exam Const Suly (more content not included)... Normal [facility] Eosinophil percentageOrdered By: Antonette Dominguez on 05-22-2025 Eosinophils/100 WBC (Bld) 4.5 % 0-[address] [facility] Erythrocyte distribution wid th ratioOrdered By: Antonette Dominguez on 05-22-2025 Erythrocyte distribution width (RBC) [Ratio] 13.8 % 11.6-14.[address] [facility] Erythrocyte distribution wid th standard deviationOrdered By: Antonette Dominguez on 05-22-2025 Erythrocyte distribution width (RBC) [Ratio] 40.8 fl 35.1-43.[address] [facility] Glomerular filtration rate ( GFR) estimation/1.73 sq m using serum, plasma, or whole bOrdered By: Antonette Dominguez on 05-22-2025 GFR/1.73 sq M.predicted among non-blacks MDRD (S/P/Bld) [Vol rate/Area] 95 mL/min/{1.73_m2} >[address] [facility] Comment on above: mL/min/1.73m2 CKD-EP I Creatinine Equation (2020) Hematocrit Auto (Bld) [Volum e fraction]Ordered By: Antonette Dominguez on 05-22-2025 Hematocrit (Bld) [Volume fraction] 35.5 % Low 40-[address] [facility] Hemoglobin measurementOrdere d By: Antonette Dominguez on 05-22-2025 Hemoglobin (Bld) [Mass/Vol] 12.3 g/dL Low 13.0-16.[address] [facility] Immature granulocytes/100 WB C Auto (Bld)Ordered By: Antonette Dominguez on 05-22-2025 Immature granulocytes/100 WBC (Bld) 0.300 % 0.0-0.[address] [facility] Comment on above: IG% - Immature Granu locytes (promyelocytes, myelocytes and metamyelocytes) > 1% indicates that a LEFT SHIFT is Present. Laboratory - Chemistry and C hemistry - challengeOrdered By: Antonette Dominguez on 05-22-2025 AST [Catalytic activity/Vol] 13 U/L <[address] [facility] MCV (mean corpuscular volume ) determinationOrdered By: Antonette Dominguez on 05-22-2025 MCV (RBC) [Entitic vol] 82.0 fL 80-94 [facility] Magnesiumon 05-22-2025 Magnesium [Mass/Vol] 1.3 mg/dL Low 1.5-2.2 [facility] Comment on above: Performed By: #### L 500.4050, L501.5200 #### [facility] [address] [place], [address] Magnesium measurement (mass/ volume)Ordered By: Antonette Dominguez on 05-22-2025 Magnesium (Unsp spec) [Mass/Vol] 1.3 mg/dL Low 1.5-2.[address] [facility] Mean corpuscular hemoglobin (MCH) determinationOrdered By: Antonette Dominguez on 05-22-2025 MCH (RBC) [Entitic mass] 28.4 pg 27.0-32.[address] [facility] Mean corpuscular hemoglobin concentration (MCHC) determinationOrdered By: Antonette Dominguez on 05-22-2025 MCHC (RBC) [Mass/Vol] 34.6 g/dL 32-36 [facility] Mean platelet volume determi nationOrdered By: Antonette Dominguez on 05-22-2025 Platelet mean volume (Bld) [Entitic vol] 8.8 fL 6.2-12.[address] [facility] Monocyte percentageOrdered B y: Antonette Dominguez on 05-22-2025 Monocytes/100 WBC (Bld) 7.7 % 0-10 [facility] Neutrophil percentageOrdered By: Antonette Dominguez on 05-22-2025 Neutrophils/100 WBC (Bld) 67.1 % 47-[address] [facility] Nucleated red blood cell per centageOrdered By: Antonette Dominguez on 05-22-2025 Nucleated RBC/100 WBC (Bld) [Ratio] 0 % 0-[address] [facility] Platelet countOrdered By: Gibran Dominguez on 05-22-2025 Platelets (Bld) [#/Vol] 151 10*3/uL 150-[address] [facility] Potassium measurement (mass/ volume)Ordered By: Antonette Dominguez on 05-22-2025 Potassium (Unsp spec) [Mass/Vol] 4.0 mmol/L 3.3-5.[address] [facility] RBC Auto (Bld) [#/Vol]Ordere d By: Antonette Dominguez on 05-22-2025 RBC (Bld) [#/Vol] 4.33 10*6/uL Low 4.6-6.2 [facility] Serum creatinine measurement (mass/volume)Ordered By: Antonette Dominguez on 05-22-2025 Creatinine [Mass/Vol] 0.90 mg/dL 0.70-1.20 [facility] Serum globulin measurementOr dered By: Antonette Dominguez on 05-22-2025 Globulin (S) [Mass/Vol] 2.5 g/dL 2.2-4.2 [facility] Serum glucose measurement (m ass/volume)Ordered By: Antonette Dominguez on 05-22-2025 Glucose [Mass/Vol] 183 mg/dL High 70-99 [facility] Serum or plasma alanine wagoner otransferase (ALT) measurementOrdered By: Antonette Dominguez on 05-22-2025 ALT [Catalytic activity/Vol] 10 U/L <[address] [facility] Serum or plasma albumin yayo urement (mass/volume)Ordered By: Antonette Dominguez on 05-22-2025 Albumin [Mass/Vol] 3.6 g/dL 3.4-4.8 [facility] Serum or plasma albumin/glob ulin mass ratioOrdered By: Antonette Dominguez on 05-22-2025 Albumin/Globulin [Mass ratio] 1.4 {ratio} 0.9-2.[address] [facility] Serum or plasma alkaline andrzej sphatase measurementOrdered By: Antonette Dominguez on 05-22-2025 ALP [Catalytic activity/Vol] 79 U/L 40-[address] [facility] Serum or plasma calcium yayo urement (mass/volume)Ordered By: Antonette Dominguez on 05-22-2025 Calcium [Mass/Vol] 9.3 mg/dL 7.6-11.0 [facility] Serum or plasma urea nitroge n measurement (mass/volume)Ordered By: Antonette Dominguez on 05-22-2025 Urea nitrogen [Mass/Vol] 16 mg/dL 4-[address] [facility] Sodium levelOrdered By: Rubi Dominguez on 05-22-2025 Sodium [Moles/Vol] 139 mmol/L 133-145 [facility] Stool Occult Blood iFOBon STOB Positive Normal [facility] Comment on above: Performed By: #### M 100.7781 ####[facility] [id number] [place], [address] Stool gastrointestinal hemog lobin detection by immunologic methodOrdered By: Antonette Dominguez on 05-22-2025 Lower GI hemoglobin IA Ql (Stl) Positive Abnormal [facility] Total proteinOrdered By: Manasa Dominguez on 05-22-2025 Protein [Mass/Vol] 6.2 g/dL 5.9-8.4 [facility] White blood cell (WBC) count Ordered By: Antonettewen Dominguez on 05-22-2025 WBC (Bld) [#/Vol] 6.7 10*3/uL 4.4-11.0 [facility] Urine Cultureon 05-05-2025 [facility] Staphylococcus aureu s Slemp Count 80,000-100,000 Staphylococcus aureus: REACTION cefOXitin Susc Islt Doxycycline Islt NASRIN <=0.5 S Clindamycin.induced Susc Islt NEG Gentamicin Islt NASRIN <=0.5 S Linezolid Islt NASRIN 2 S Moxifloxacin Islt NASRIN <=0.25 S Nitrofurantoin Islt NASRIN <=16 S Oxacillin Susc Islt 0.5 S Tetracycline Islt NASRIN <=1 S TMP SMX Islt NASRIN <=10 S Vancomycin Islt NASRIN <=0.5 S Normal [facility] Comment on above: Performed By: #### M 100.2200 #### [facility] [address] [place], [address] 12 Lead EKGon 05-03-2025 12 Lead EKG [facility] Cardiovascular Services [address] [place] [address] 12 Lead EKG 05/03/25 1255 MR#: [id number] Acct: [id number] Name: JERALD YODER Rep #: [id number] : 1960 65 From: Cesar Mccoy MD [...] Left axis deviation Abnormal ECG Confirmed by TESSA TRACY, CESAR ([id number]), videotape editor CARLA HERNANDEZ ([id number]) on 05/06/2025 10:30:28 AM Referred By: Confirmed By: CESAR MCCOY MD 05/06/25 1030 Date Cesar Mccoy MD CC: Dr. Linden Chavez, DO; Dr. Pedro Krishnan, DO; ARCHIE Hopkins Signed Normal [facility] Absolute lymphocyte countOrd ered By: Cinthia Wilson on 05-03-2025 Lymphocytes Auto (Unsp spec) [#/Vol] 1.45 10*3/uL 0.83-4.[address] [facility] Absolute neutrophil countOrd ered By: Cinthia Wilson on 05-03-2025 Neutrophils (Bld) [#/Vol] 7.2 10*3/uL 2.0-7.[address] [facility] Anion gap in Serum or Plasma Ordered By: Cinthia Wilson on 05-03-2025 Anion gap [Moles/Vol] 12 mmol/L 5-15 [facility] Automated lymphocyte count a s percentage of total leukocytesOrdered By: Cinthia Wilson on 05-03-2025 Lymphocytes/100 WBC Auto (Unsp spec) 15.1 % Low 19-[address] [facility] BUN/creatinine ratioOrdered By: Cinthia Wilson on 05-03-2025 Urea nitrogen/Creatinine [Mass ratio] 25.5 mg/mg High 10-[address] [facility] Basophil percentageOrdered B y: Cinthia Wilson on 05-03-2025 Basophils/100 WBC (Bld) 0.6 % 0-1 [facility] Bedside Glucoseon 05-03-2025 FINGERSTICK GLU 226 mg/dL High 74-[address] [facility] Comment on above: Result Comment: TAYLOR SEALS OF PATIENT CARE PER NURSING PROTOCOL Performed By: #### L 500.2500, L501.4020, L100.0100 #### [facility] [address] [place], [address] Bilirubin Test strip Ql (U)O rdered By: Cinthia Wilson on 05-03-2025 Bilirubin Ql (U) Negative Negative [facility] Bilirubin, totalOrdered By: Cinthia Lópezantioneken on 05-03-2025 Bilirubin [Mass/Vol] 0.34 mg/dL 0.00-1.30 [facility] CBC W/Diff, Automatedon 07-0 Absolute Lymph 1.45 X10 3/uL Normal 0.83-4.[address] [facility] Comment on above: Performed By: #### L 501.080 #### [facility] [address] [place], [address] Absolute Neut 7.2 X10 3/uL Normal 2.0-7.[address] [facility] Comment on above: Performed By: #### L 501.080 #### [facility] [address] [place], [address] Basophils/100 WBC (Bld) 0.6 % Normal 0-1 [facility] Comment on above: Performed By: #### L 501.080 #### [facility] [address] [place], [address] Eosinophils/100 WBC (Bld) 2.1 % Normal 0-[address] [facility] Comment on above: Performed By: #### L 501.080 #### [facility] [address] [place], [address] Erythrocyte distribution width (RBC) [Ratio] 13.6 % Normal 11.6-14.[address] [facility] Comment on above: Performed By: #### L 501.080 #### [facility] [address] [place], [address] Hematocrit (Bld) [Volume fraction] 39.5 % Low 40-[address] [facility] Comment on above: Performed By: #### L 501.080 #### [facility] [address] [place], [address] Hemoglobin (Bld) [Mass/Vol] 14.0 g/dL Normal 13.0-16.[address] [facility] Comment on above: Performed By: #### L 501.080 #### [facility] [address] [place], [address] IG% 0.300 Normal 0.0-0.[address] [facility] Comment on above: Result Comment: IG% - Immature Granulocytes (promyelocytes, myelocytes and metamyelocytes) > 1% indicates that a LEFT SHIFT is Present. Performed By: #### L 501.080 #### [facility] [address] [place], [address] Lymphocytes/100 WBC (Bld) 15.1 % Low 19-[address] [facility] Comment on above: Performed By: #### L 501.080 #### [facility] [address] [place], [address] MCH (RBC) [Entitic mass] 28.6 pg Normal 27.0-32.[address] [facility] Comment on above: Performed By: #### L 501.080 #### [facility] [address] [place], [address] MCHC (RBC) [Mass/Vol] 35.4 g/dL Normal 32-36 [facility] Comment on above: Performed By: #### L 501.080 #### [facility] [address] [place], [address] MCV (RBC) [Entitic vol] 80.8 fL Normal 80-94 [facility] Comment on above: Performed By: #### L 501.080 #### [facility] [address] [place], [address] Monocytes/100 WBC (Bld) 6.8 % Normal 0-10 [facility] Comment on above: Performed By: #### L 501.080 #### [facility] [address] [place], [address] Neutrophils/100 WBC (Bld) 75.1 % High 47-[address] [facility] Comment on above: Performed By: #### L 501.080 #### [facility] [address] [place], [address] Nucleated RBC (Bld) [#/Vol] 0 10*3/uL Normal 0-[address] [facility] Comment on above: Performed By: #### L 501.080 #### [facility] [address] [place], [address] Platelet mean volume (Bld) [Entitic vol] 8.9 fL Normal 6.2-12.[address] [facility] Comment on above: Performed By: #### L 501.080 #### [facility] [address] [place], [address] Platelets (Bld) [#/Vol] 251 10*3/uL Normal 150-[address] [facility] Comment on above: Performed By: #### L 501.080 #### [facility] [address] [place], [address] RBC (Bld) [#/Vol] 4.89 10*6/uL Normal 4.6-6.2 [facility] Comment on above: Performed By: #### L 501.080 #### [facility] [address] [place], [address] RDW SD 39.5 fl Normal 35.1-43.[address] [facility] Comment on above: Performed By: #### L 501.080 #### [facility] [address] [place], [address] WBC (Bld) [#/Vol] 9.6 10*3/uL Normal 4.4-11.0 [facility] Comment on above: Performed By: #### L 501.080 #### [facility] [address] [place], [address] Carbon dioxide, total [Moles /volume] in Central venous bloodOrdered By: Cinthia Wilson on 05-03-2025 CO2 [Moles/Vol] 23.1 mmol/L 21.0-32.[address] [facility] Chloride assayOrdered By: Crissy Wilson on 05-03-2025 Chloride [Moles/Vol] 101 mmol/L 98-108 [facility] Comprehensive Metabolic Prof ilon 05-03-2025 Albumin [Mass/Vol] 4.2 g/dL Normal 3.4-4.8 [facility] Comment on above: Performed By: #### L 501.080 #### [facility] [address] [place], [address] Albumin/Globulin [Mass ratio] 1.3 {ratio} Normal 0.9-2.[address] [facility] Comment on above: Performed By: #### L 501.080 #### [facility] [address] [place], [address] ALK PHOS 112 U/L Normal 40-[address] [facility] Comment on above: Performed By: #### L 501.080 #### [facility] [address] [place], [address] ALT [Catalytic activity/Vol] 8 U/L Normal <=[address] [facility] Comment on above: Performed By: #### L 501.080 #### [facility] [address] [place], [address] AST [Catalytic activity/Vol] 14 U/L Normal <=[address] [facility] Comment on above: Performed By: #### L 501.080 #### [facility] [address] [place], [address] Bilirubin [Mass/Vol] 0.34 mg/dL Normal 0.00-1.30 [facility] Comment on above: Performed By: #### L 501.080 #### [facility] [address] [place], [address] BUN/CRE 25.5 RATIO High 10-[address] [facility] Comment on above: Performed By: #### L 501.080 #### [facility] [address] [place], [address] Calcium [Mass/Vol] 9.5 mg/dL Normal 7.6-11.0 [facility] Comment on above: Performed By: #### L 501.080 #### [facility] [address] [place], [address] Chloride [Moles/Vol] 101 mmol/L Normal 98-108 [facility] Comment on above: Performed By: #### L 501.080 #### [facility] [address] [place], [address] CO2 [Moles/Vol] 23.1 mmol/L Normal 21.0-32.[address] [facility] Comment on above: Performed By: #### L 501.080 #### [facility] [address] [place], [address] Creatinine [Mass/Vol] 0.89 mg/dL Normal 0.70-1.20 [facility] Comment on above: Performed By: #### L 501.080 #### [facility] [address] [place], [address] ECRCL 104.28 ml/min Normal 50-[address] [facility] Comment on above: Performed By: #### L 501.080 #### [facility] [address] [place], [address] GAP 12 Normal 5-[address] [facility] Comment on above: Performed By: #### L 501.080 #### [facility] [address] [place], [address] GFR/1.73 sq M.predicted among non-blacks MDRD (S/P/Bld) [Vol rate/Area] 95 mL/min/{1.73_m2} Normal >[address] [facility] Comment on above: Result Comment: mL/m in/1.73m2 CKD-EPI Creatinine Equation (2020) Performed By: #### L 501.080 #### [facility] [address] [place], [address] Globulin (S) [Mass/Vol] 3.1 g/dL Normal 2.2-4.2 [facility] Comment on above: Performed By: #### L 501.080 #### [facility] [address] [place], [address] Glucose [Mass/Vol] 215 mg/dL High 70-99 [facility] Comment on above: Performed By: #### L 501.080 #### [facility] [address] [place], [address] Potassium [Moles/Vol] 4.4 mmol/L Normal 3.3-5.1 [facility] Comment on above: Performed By: #### L 501.080 #### [facility] [address] [place], [address] Sodium [Moles/Vol] 136 mmol/L Normal 133-145 [facility] Comment on above: Performed By: #### L 501.080 #### [facility] [address] [place], [address] T PROT 7.3 g/dL Normal 5.9-8.[address] [facility] Comment on above: Performed By: #### L 501.080 #### [facility] [address] [place], [address] Urea nitrogen [Mass/Vol] 23 mg/dL High 4-[address] [facility] Comment on above: Performed By: #### L 501.080 #### [facility] [address] [place], [address] Emergency Department Summary on 05-03-2025 Emergency Department Summary [facility] Medical Records Department [address] [place] [address] Emergency Department Summary 05/03/25 MR#: [id number] Acct: [id number] Name: JERALD YODER Rep #: [id number] : 1960 65 From: Cinthia ALMANZA PCP: Dr. Linden Chavez, DO Status:DEP ER Location: ED Patient was seen and examined with physician senior care assistant Cinthia All components of the history [...] Agreed above Physical exam: Agree with above [facility] Patient is a 65-year-old male who presented [...] in stable condition Supervising attending attestation: Pedro SOLIS History of Present Illness Chief Complaint: Diarrhea [...] has another appointment with him on 05/24. [facility] Medical History Partial traumatic amputation of [...] tablet 5 mg PO BID diabetes 03/19/22 0507/22 History insulin glargine 100 unit/mL (3 10 [...] Insulin) levo (more content not included)... Normal [facility] Eosinophil percentageOrdered By: Cinthia Wilson on 05-03-2025 Eosinophils/100 WBC (Bld) 2.1 % 0-[address] [facility] Erythrocyte distribution wid th ratioOrdered By: Cinthia Wilson on 05-03-2025 Erythrocyte distribution width (RBC) [Ratio] 13.6 % 11.6-14.[address] [facility] Erythrocyte distribution wid th standard deviationOrdered By: Cinthia Wilson on 05-03-2025 Erythrocyte distribution width (RBC) [Ratio] 39.5 fl 35.1-43.[address] [facility] Glomerular filtration rate ( GFR) estimation/1.73 sq m using serum, plasma, or whole bOrdered By: Cinthia Wilson on 05-03-2025 GFR/1.73 sq M.predicted among non-blacks MDRD (S/P/Bld) [Vol rate/Area] 95 mL/min/{1.73_m2} >[address] [facility] Comment on above: mL/min/1.73m2 CKD-EP I Creatinine Equation (2020) [facility] deOrdered By: Pedro Krishnan on 05-03-2025 Glucose [Mass/Vol] 226 mg/dL High 74-106 [facility] Comment on above: MANAGEMENT OF PATIEN T CARE PER NURSING PROTOCOL Hematocrit Auto (Bld) [Volum e fraction]Ordered By: Cinthia Wilson on 05-03-2025 Hematocrit (Bld) [Volume fraction] 39.5 % Low 40-[address] [facility] Hemoglobin measurementOrdere d By: Cinthia Wlison on 05-03-2025 Hemoglobin (Bld) [Mass/Vol] 14.0 g/dL 13.0-16.[address] [facility] Immature granulocytes/100 WB C Auto (Bld)Ordered By: Cinthia Wilson on 05-03-2025 Immature granulocytes/100 WBC (Bld) 0.300 % 0.0-0.[address] [facility] Comment on above: IG% - Immature Granu locytes (promyelocytes, myelocytes and metamyelocytes) > 1% indicates that a LEFT SHIFT is Present. Ketones Test strip Ql (U)Ord ered By: Cinthia Wilson on 05-03-2025 Ketones Ql (U) Negative Negative [facility] - Chemistry and C hemistry - challengeOrdered By: Cinthia Wilson on 05-03-2025 AST [Catalytic activity/Vol] 14 U/L <[address] [facility] MCV (mean corpuscular volume ) determinationOrdered By: Cinthia Wilson on 05-03-2025 MCV (RBC) [Entitic vol] 80.8 fL 80-94 [facility] Mean corpuscular hemoglobin (MCH) determinationOrdered By: Cinthia Wilson on 05-03-2025 MCH (RBC) [Entitic mass] 28.6 pg 27.0-32.[address] [facility] Mean corpuscular hemoglobin concentration (MCHC) determinationOrdered By: Cinthia Wilson on 05-03-2025 MCHC (RBC) [Mass/Vol] 35.4 g/dL 32-36 [facility] Mean platelet volume determi nationOrdered By: Cinthia Wilson on 05-03-2025 Platelet mean volume (Bld) [Entitic vol] 8.9 fL 6.2-12.[address] [facility] Microscopic analysis of urin e for red blood cells (RBC)Ordered By: Cinthia Wilson on 05-03-2025 Microscopic analysis of urine for red blood cells (RBC) 0 SEEN /hpf 0-[address] [facility] Monocyte percentageOrdered B y: Cinthia Wilson on 05-03-2025 Monocytes/100 WBC (Bld) 6.8 % 0-10 [facility] Mucus LM Ql (Urine sed)Order ed By: Cinthia Wilson on 05-03-2025 Mucus Ql (Urine sed) 0 SEEN /hpf [facility] Neutrophil percentageOrdered By: Cinthia Wilson on 05-03-2025 Neutrophils/100 WBC (Bld) 75.1 % High 47-[address] [facility] Nitrite Test strip Ql (U)Ord ered By: Cinthia Wilson on 05-03-2025 Nitrite Ql (U) Negative Negative [facility] Nucleated red blood cell per centageOrdered By: Cinthia Wilson on 05-03-2025 Nucleated RBC/100 WBC (Bld) [Ratio] 0 % 0-[address] [facility] Platelet countOrdered By: Crissy Wilson on 05-03-2025 Platelets (Bld) [#/Vol] 251 10*3/uL 150-[address] [facility] Potassium measurement (mass/ volume)Ordered By: Cinthia Wilson on 05-03-2025 Potassium (Unsp spec) [Mass/Vol] 4.4 mmol/L 3.3-5.[address] [facility] Protein Test strip Ql (U)Ord ered By: Cinthia Wilson on 05-03-2025 Protein Ql (U) 30 mg/dl High Negative [facility] RBC Auto (Bld) [#/Vol]Ordere d By: Cinthia Wilson on 05-03-2025 RBC (Bld) [#/Vol] 4.89 10*6/uL 4.6-6.2 [facility] Serum creatinine measurement (mass/volume)Ordered By: Cinthia Wilson on 05-03-2025 Creatinine [Mass/Vol] 0.89 mg/dL 0.70-1.20 [facility] Serum globulin measurementOr dered By: Cinthia Wilson on 05-03-2025 Globulin (S) [Mass/Vol] 3.1 g/dL 2.2-4.2 [facility] Serum glucose measurement (m ass/volume)Ordered By: Cinthia Wilson on 05-03-2025 Glucose [Mass/Vol] 215 mg/dL High 70-99 [facility] Serum or plasma alanine wagoner otransferase (ALT) measurementOrdered By: Cinthia Wilson on 05-03-2025 ALT [Catalytic activity/Vol] 8 U/L <[address] [facility] Serum or plasma albumin yayo urement (mass/volume)Ordered By: Cinthia Wilson on 05-03-2025 Albumin [Mass/Vol] 4.2 g/dL 3.4-4.8 [facility] Serum or plasma albumin/glob ulin mass ratioOrdered By: Cinthia Wilson on 05-03-2025 Albumin/Globulin [Mass ratio] 1.3 {ratio} 0.9-2.[address] [facility] Serum or plasma alkaline andrzej sphatase measurementOrdered By: Cinthia Wilson on 05-03-2025 ALP [Catalytic activity/Vol] 112 U/L 40-[address] [facility] Serum or plasma calcium yayo urement (mass/volume)Ordered By: Cinthia Wilson on 05-03-2025 Calcium [Mass/Vol] 9.5 mg/dL 7.6-11.0 [facility] Serum or plasma urea nitroge n measurement (mass/volume)Ordered By: Cinthia Wilson on 05-03-2025 Urea nitrogen [Mass/Vol] 23 mg/dL High 4-[address] [facility] Sodium levelOrdered By: Cinthia Wilson on 05-03-2025 Sodium [Moles/Vol] 136 mmol/L 133-145 [facility] Squamous epithelial cells de tection in urine sediment by light microscopyOrdered By: Cinthia Wilson on 05-03-2025 Epithelial cells.squamous LM Ql (Urine sed) 0 SEEN /hpf 0-[address] [facility] Total proteinOrdered By: Martha Wilson on 05-03-2025 Protein [Mass/Vol] 7.3 g/dL 5.9-8.4 [facility] Urinalysis, Completeon 05-03 WBC >100 SEEN Normal 0-[address] [facility] Comment on above: Order Comment: NO NEVAREZOR TO SPECIFY Performed By: #### L 400.0001 ####[facility] [address] [place], [place], [id number] BACTERIA 0 SEEN Normal None Seen [facility] Comment on above: Order Comment: NO NEVAREZOR TO SPECIFY Performed By: #### L 400.0001 ####[facility] [address] [place], [place], [address] EPI,SQUAMOUS 0 SEEN Normal 0-[address] [facility] Comment on above: Order Comment: NO CTOR TO SPECIFY Performed By: #### L 400.0001 ####[facility] [address] [place], [address] Mucus Ql (Urine sed) 0 SEEN Normal [facility] Comment on above: Order Comment: NO CTOR TO SPECIFY Performed By: #### L 400.0001 ####[facility] [address] [place], [address] RBC 0 SEEN Normal 0-[address] [facility] Comment on above: Order Comment: NO CTOR TO SPECIFY Performed By: #### L 400.0001 ####[facility] [address] [place], [address] Urine clarityOrdered By: Martha Wilson on 05-03-2025 Clarity (U) Cloudy Clear [facility] Urine color determinationOrd ered By: Cinthia Wilson on 05-03-2025 Color (U) Yellow Yellow [facility] Urine cultureOrdered By: Martha Wilson on 05-03-2025 Bacteria identified Cx Nom (U) Staphylococcus aureus Abnormal [facility] Urine glucose detectionOrder ed By: Cinthia Wilson on 05-03-2025 Glucose Ql (U) 250 mg/dl High Normal [facility] Urine leukocyte esterase det ection by dipstickOrdered By: Cinthia Wilson on 05-03-2025 Leukocyte esterase Test strip Ql (U) 500 /ul High Negative [facility] Urine pHOrdered By: Cinthia massey on 05-03-2025 pH (U) 6.0 [pH] 5.0 - 8.[address] [facility] Urine sediment bacteria coun t by microscopy (number/high power field)Ordered By: Cinthia Wilson on 05-03-2025 Bacteria LM.HPF (Urine sed) [#/Area] 0 /[HPF] None Seen [facility] Urine specific gravity measu rementOrdered By: Cinthia Wilson on 05-03-2025 Specific gravity (U) [Rel density] 1.010 1.002-1.[address] [facility] Urine urobilinogen measureme ntOrdered By: Cinthia Wilson on 05-03-2025 Urobilinogen Ql (U) Normal mg/dl Normal [facility] White blood cell (WBC) count Ordered By: Cinthia Wilson on 05-03-2025 WBC (Bld) [#/Vol] 9.6 10*3/uL 4.4-11.0 [facility] White blood cell countOrdere d By: Cinthia Wilson on 05-03-2025 White blood cell count >100 SEEN /hpf 0-[address] [facility] Bilirubin Test strip Ql (U)O rdered By: Linden Chavez on 04-26-2025 Bilirubin Ql (U) Negative Negative [facility] Ketones Test strip Ql (U)Ord ered By: Linden Chavez on 04-26-2025 Ketones Ql (U) Negative Negative [facility] Microalb:Creat Ratio,Random URon 04-26-2025 Creatinine [Mass/Vol] 31.70 mg/dL Low 39.00-259.[address] [facility] Comment on above: Performed By: #### L 400.2010, L502.0250 ####[facility] [address] [place], [address] MALB:CREAT 564.7 mg/g CRE Normal [facility] Comment on above: Performed By: #### L 400.2010, L502.0250 ####[facility] [address] [place], [address] MICROALBUMIN,UR 179.0 mg/L Normal NO RANGE EST. [facility] Comment on above: Performed By: #### L 400.2010, L502.0250 ####[facility] [address] [place], [address] Nitrite Test strip Ql (U)Ord ered By: Linden Chavez on 04-26-2025 Nitrite Ql (U) Negative Negative [facility] Protein Test strip Ql (U)Ord ered By: Linden Chavez on 04-26-2025 Protein Ql (U) 100 mg/dl High Negative [facility] Random urine creatinine yayo urement (mass/volume)Ordered By: Linden Chavez on 06-27-2025 Creatinine Unsp time (U) [Mass/Vol] 31.70 mg/dL Low 39.00-259.[address] [facility] Urinalysis, Routine (Dipstic k)on 04-26-2025 BILIRUBIN URINE Negative Normal Negative [facility] Comment on above: Order Comment: MIACL BRIDGET CATCH Performed By: #### L 400.2010, L502.0250 ####[facility] [address] [place], [address] Clarity (U) Cloudy Normal Clear [facility] Comment on above: Order Comment: MIACL BRIDGET CATCH Performed By: #### L 400.2010, L502.0250 ####[facility] [address] [place], [address] Color (U) Yellow Normal Yellow [facility] Comment on above: Order Comment: MIACL BRIDGET CATCH Performed By: #### L 400.2010, L502.0250 ####[facility] [address] [place], [address] GLUCOSE, UR 1000 mg/dl Abnormal Normal [facility] Comment on above: Order Comment: MIACL BRIDGET CATCH Performed By: #### L 400.2010, L502.0250 ####[facility] [address] [place], [address] KETONE UR Negative Normal Negative [facility] Comment on above: Order Comment: MIACL BRIDGET CATCH Performed By: #### L 400.2010, L502.0250 ####[facility] [address] [place], [address] LEUK ESTERASE 500 /ul Abnormal Negative [facility] Comment on above: Order Comment: MIACL BRIDGET CATCH Performed By: #### L 400.2010, L502.0250 ####[facility] [address] [place], [address] Nitrite Ql (U) Negative Normal Negative [facility] Comment on above: Order Comment: MIACL BRIDGET CATCH Performed By: #### L 400.2010, L502.0250 ####[facility] [address] [place], [address] OCCULT BLOOD-UR 150 /ul Abnormal Negative [facility] Comment on above: Order Comment: MIACL BRIDGET CATCH Performed By: #### L 400.2010, L502.0250 ####[facility] [address] [place], [address] pH UR 7.0 Normal 5.0 - 8.[address] [facility] Comment on above: Order Comment: MIACL BRIDGET CATCH Performed By: #### L 400.2010, L502.0250 ####[facility] [address] [place], [address] PROT DIPSTX 100 mg/dl Abnormal Negative [facility] Comment on above: Order Comment: MIACL BRIDGET CATCH Performed By: #### L 400.2010, L502.0250 ####[facility] [address] [place], [address] SP.GR. DIPSTX 1.010 Normal 1.002-1.[address] [facility] Comment on above: Order Comment: MIACL BRIDGET CATCH Performed By: #### L 400.2010, L502.0250 ####[facility] [address] [place], [address] UROBILI Normal Normal Normal [facility] Comment on above: Order Comment: MIACL BRIDGET CATCH Performed By: #### L 400, L502.0250 ####[facility] [address] [place], [address] Urine albumin measurement wi th detection limit of 20 mg/L or less (mass/volume)Ordered By: Linden Chavez on 04-26-2025 Albumin DL <= 20 mg/L (U) [Mass/Vol] 179.0 mg/L NO RANGE EST. [facility] Urine clarityOrdered By: Noemy Chavez on 04-26-2025 Clarity (U) Cloudy Clear [facility] Urine color determinationOrd ered By: Linden Chavez on 04-26-2025 Color (U) Yellow Yellow [facility] Urine glucose detectionOrder ed By: Linden Chavez on 04-26-2025 Glucose Ql (U) 1000 mg/dl High Normal [facility] Urine leukocyte esterase det ection by dipstickOrdered By: Linden Chavez on 04-26-2025 Leukocyte esterase Test strip Ql (U) 500 /ul High Negative [facility] Urine pHOrdered By: Linden tripathi on 04-26-2025 pH (U) 7.0 [pH] 5.0 - 8.[address] [facility] Urine specific gravity measu rementOrdered By: Linden Chavez on 04-26-2025 Specific gravity (U) [Rel density] 1.010 1.002-1.[address] [facility] Urine urobilinogen measureme ntOrdered By: Linden Chavez on 04-26-2025 Urobilinogen Ql (U) Normal mg/dl Normal [facility] Celiac Disease Profileon ENDOMYSIAL IGA Negative Normal Negative [facility] Comment on above: Performed By: #### L 500.2500, L501.4020, L100.0100 #### [facility] [address] [place] [address] IMMUNOGLOB A QN 364 mg/dL Normal 61-[address] [facility] Comment on above: Result Comment: Perf ormed at: - [facility] [id number] [address] Conductor: Rasheed Denney PhD, Phone: [phone] Performed By: #### L 500.2500, L501.4020, L100.0100 #### [facility] [address] [facility] [address] tTG IGA <2 Normal 0-[address] [facility] Comment on above: Result Comment: Nega tive 0 - 3 Weak Positive 4 - 10 Positive >10 Tissue Transglutaminase (tTG) has been identified as the endomysial antigen. Studies have demonstr- ated that endomysial IgA antibodies have over 99% specificity for gluten sensitive enteropathy. Performed By: #### L 500.2500, L501.4020, L100.0100 #### [facility] [address] [place], [place], [id number] Bilirubin directOrdered By: Linden Chavez on 04-23-2025 Bilirubin.direct [Mass/Vol] 0.16 mg/dL 0.00-0.[address] [facility] Bilirubin, totalOrdered By: Linden Chavez on 04-23-2025 Bilirubin [Mass/Vol] 0.40 mg/dL 0.00-1.30 [facility] CRPon 04-23-2025 C-REACTIVE PROT 15.50 mg/L High 0.0-3.[address] [facility] Comment on above: Performed By: #### L 500.2500, L501.4020, L100.0100 #### [facility] [address] [place], [place], [id number] Calculated very low density lipoprotein (VLDL) cholesterol measurementOrdered By: Linden Chavez on 04-23-2025 Calculated very low density lipoprotein (VLDL) cholesterol measurement 37 mg/dL 5-[address] [facility] Erythrocyte Sed Rateon 04-23 SED RATE 12 mm/hr Normal 0-[address] [facility] Comment on above: Performed By: #### L 500.2500, L501.4020, L100.0100 #### [facility] [address] [place], [place], [id number] Erythrocyte sedimentation ra teOrdered By: Linden Chavez on 04-23-2025 ESR (Bld) [Velocity] 12 mm/h 0-20 [facility] Hemoglobin A1con 04-23-2025 HbA1c (Bld) [Mass fraction] 11.6 % High <=5.[address] [facility] Comment on above: Result Comment: Norm al < 5.7 % Prediabetic 5.7 - 6.4 % Diabetic >or= 6.5 % Please note range changes. Performed By: #### L 500.2500, L501.4020, L100.0100 #### [facility] [address] [place], [place], [id number] Hemoglobin A1c percentageOrd ered By: Linden Chavez on 04-23-2025 HbA1c (Bld) [Mass fraction] 11.6 % High <5.[address] [facility] Comment on above: Normal < 5.7 % Predi abetic 5.7 - 6.4 % Diabetic >or= 6.5 % Please note range changes. Hepatitis C Antibodyon 04-23 Hepatitis C Ab Non-Reactive Normal Nonreactive [facility] Comment on above: Result Comment: Reac tive: Presumptive evidence of antibodies to HCV. Follow CDC recommendations for supplemental testing. Non-Reactive: Antibodies to HCV were not detected; does not exclude the possibility of exposure to HCV Reactive Results are presumptive evidence of antibodies to HCV. Follow CDC recommendations for supplemental testing. Order confirmation testing: HCV Quant by PCR testing - HCVPCR #[id number] Non Reactive: < 0.8 Equivocal: >/= 0.8 to < 1.0 Reactive: >/= 1.0 The CDC requires that a reactive/equivocal HCV antibody result be sent out for confirmation. HCV Quant by PCR testing. Performed By: #### L 500.2500, L501.4020, L100.0100 #### [facility] [address] [place], [place], [phone] LDL calc ser/plasOrdered By: Linden Chavez on 04-23-2025 Cholesterol in LDL [Mass/Vol] 100 mg/dL [facility] Comment on above: Glvpnifvxd=881-603 m g/dL & Higher Bwad=338 mg/dL or greater Laboratory - Chemistry and C hemistry - challengeOrdered By: Linden Chavez on 04-23-2025 AST [Catalytic activity/Vol] 11 U/L <[address] [facility] Lipid Profileon 04-23-2025 CHOL:HDL 5.[address] [facility] Comment on above: Performed By: #### L 500.2500, L501.4020, L100.0100 #### [facility] [address] [place], [place], [id number] Cholesterol [Mass/Vol] 171 mg/dL Normal <=200 [facility] Comment on above: Result Comment: Chol esterol level, Desirable <200 mg/dL Borderline high cholesterol 200-239 mg/dL High cholesterol >=240 mg/dL Recommendations of the NCEP Adult Treatment Panel for the following risk-cutoff thresholds for the [place] population. Performed By: #### L 500.2500, L501.4020, L100.0100 #### [facility] [address] [place], [address] Cholesterol in HDL [Mass/Vol] 34 mg/dL Low [facility] Comment on above: Result Comment: Adeline onal Cholesterol Education Program (NCEP) guidelines: <40 mg/dL: Low HDL-cholesterol (major risk factor for CHD) >= 60 mg/dL: High HDL-cholesterol (negative risk factor for CHD) HDL-cholesterol is affected by a number of factors, e.g. smoking, exercise, hormones, sex and age. Performed By: #### L 500.2500, L501.4020, L100.0100 #### [facility] [address] [place], [address] Cholesterol in LDL [Mass/Vol] 100 mg/dL Normal [facility] Comment on above: Result Comment: Bord wrzjta=390-371 mg/dL Higher Yrns=575 mg/dL or greater Performed By: #### L 500.2500, L501.4020, L100.0100 #### [facility] [address] [place], [address] Cholesterol in VLDL [Mass/Vol] 37 mg/dL Normal 5-[address] [facility] Comment on above: Performed By: #### L 500.2500, L501.4020, L100.0100 #### [facility] [address] [place], [address] Triglyceride [Mass/Vol] 187 mg/dL Normal [facility] Comment on above: Result Comment: The drugs N-Acetylcysteine and Metamizole may falsely depress this assay. Normal range: <150 mg/dL Borderline High: 150-199 mg/dL High: 200-499 mg/dL Very High: >500 mg/dL Performed By: #### L 500.2500, L501.4020, L100.0100 #### [facility] [address] [place], [address] Liver Profileon 04-23-2025 Albumin [Mass/Vol] 3.9 g/dL Normal 3.4-4.8 [facility] Comment on above: Performed By: #### L 500.2500, L501.4020, L100.0100 #### [facility] [address] [place], [address] ALK PHOS 102 U/L Normal 40-[address] [facility] Comment on above: Performed By: #### L 500.2500, L501.4020, L100.0100 #### [facility] [address] [place], [address] ALT [Catalytic activity/Vol] 8 U/L Normal <=[address] [facility] Comment on above: Performed By: #### L 500.2500, L501.4020, L100.0100 #### [facility] [address] [place], [address] AST [Catalytic activity/Vol] 11 U/L Normal <=[address] [facility] Comment on above: Performed By: #### L 500.2500, L501.4020, L100.0100 #### [facility] [address] [place], [address] Bilirubin [Mass/Vol] 0.40 mg/dL Normal 0.00-1.30 [facility] Comment on above: Performed By: #### L 500.2500, L501.4020, L100.0100 #### [facility] [address] [place], [address] Bilirubin.direct [Mass/Vol] 0.16 mg/dL Normal 0.00-0.[address] [facility] Comment on above: Performed By: #### L 500.2500, L501.4020, L100.0100 #### [facility] [address] [place], [address] Globulin (S) [Mass/Vol] 3.0 g/dL Normal 2.2-4.2 [facility] Comment on above: Performed By: #### L 500.2500, L501.4020, L100.0100 #### [facility] [address] [place], [address] T PROT 6.9 g/dL Normal 5.9-8.[address] [facility] Comment on above: Performed By: #### L 500.2500, L501.4020, L100.0100 #### [facility] [address] [place], [address] PSA,Total - Annual Screenon 04-23-2025 PSA,TOT SCREEN 0.35 ng/mL Normal 0.02-4.[address] [facility] Comment on above: Result Comment: This [...] By: #### L 500.2500, L501.4020, L100.0100 #### [facility] [address] [place], [address] Screening total cholesterol/ high density lipoprotein (HDL) cholesterol ratioOrdered By: Linden Chavez on 04-23-2025 Cholesterol.total/Carol sterol in HDL [Mass ratio] 5.04 {ratio} [facility] Serum globulin measurementOr dered By: Linden Chavez on 04-23-2025 Globulin (S) [Mass/Vol] 3.0 g/dL 2.2-4.2 [facility] Serum or plasma C reactive p rotein measurement (mass/volume)Ordered By: Linden Chavez on 04-23-2025 CRP [Mass/Vol] 15.50 mg/L High 0.0-3.[address] [facility] Serum or plasma IgA measurem ent (mass/volume)Ordered By: Linden Chavez on 04-23-2025 IgA [Mass/Vol] 364 mg/dL 61-[address] [facility] Comment on above: Performed at: [place] [id number] Director: Rasheed Denney PhD, Phone: [phone] Serum or plasma alanine wagoner otransferase (ALT) measurementOrdered By: Linden Chavez on 04-23-2025 ALT [Catalytic activity/Vol] 8 U/L <[address] [facility] Serum or plasma albumin yayo urement (mass/volume)Ordered By: Linden Chavez on 04-23-2025 Albumin [Mass/Vol] 3.9 g/dL 3.4-4.8 [facility] Serum or plasma alkaline andrzej sphatase measurementOrdered By: Linden Chavez on 04-23-2025 ALP [Catalytic activity/Vol] 102 U/L 40-[address] [facility] Serum or plasma cholesterol in HDL measurement (mass/volume)Ordered By: Linden Chavez on 04-23-2025 Cholesterol in HDL [Mass/Vol] 34 mg/dL Low >[address] [facility] Comment on above: National Cholesterol Education Program (NCEP) guidelines:<40 mg/dL: Low HDL-cholesterol (major risk factor for CHD)>= 60 mg/dL: High HDL-cholesterol (negative risk factor for CHD)HDL-cholesterol is affected by a number of factors, e.g. smoking, exercise, hormones, sex and age. Serum or plasma cholesterol measurement (mass/volume)Ordered By: Linden Chavez on 04-23-2025 Cholesterol [Mass/Vol] 171 mg/dL <201 [facility] Comment on above: Cholesterol level, D esirable <200 mg/dLBorderline high cholesterol 200-239 mg/dLHigh cholesterol >=240 mg/dLRecommendations of the NCEP Adult Treatment Panel for the following risk-cutoff thresholds for the [place] population. Serum tissue transglutaminas e (tTG) IgA antibody assay (units/volume)Ordered By: Linden Chavez on 04-23-2025 tTG IgA Qn (S) <2 U/mL 0-[address] [facility] Comment on above: Negative 0 - 3 Weak Positive 4 - 10 Positive >10 Tissue Transglutaminase (tTG) has been identified as the endomysial antigen. Studies have demonstr- ated that endomysial IgA antibodies have over 99% specificity for gluten sensitive enteropathy. TSH DL <= 0.005 mIU/L QnOrde red By: Linden Chavez on 04-23-2025 TSH Qn 13.600 uIU/mL High 0.300-4.[address] [facility] Thyroid Stim Hormone (TSH)on 04-23-2025 TSH 13.600 uIU/mL High 0.300-4.[address] [facility] Comment on above: Performed By: #### L 500.2500, L501.4020, L100.0100 #### [facility] [address] [place], [address] Total proteinOrdered By: Noemy Chavez on 04-23-2025 Protein [Mass/Vol] 6.9 g/dL 5.9-8.4 [facility] Triglycerides measurementOrd ered By: Linden Chavez on 04-23-2025 Triglyceride [Mass/Vol] 187 mg/dL <199 [facility] Comment on above: The drugs N-Acetylcy steine and Metamizole may falsely depress this assay. Normal range: <150 mg/dLBorderline High: 150-199 mg/dLHigh: 200-499 mg/dLVery High: >500 mg/dL Emergency Department Summary on 04-21-2025 Emergency Department Summary [facility] Medical Records Department [address] [place] [address] Emergency Department Summary 04/21/25 MR#: [id number] Acct: [id number] Name: JERALD YODER Rep #: [id number] : 1960 65 From: Ar Calle MD [...] 96 9 (more content not included)... Normal [facility] Knee 4 or More Viewson 04-21 Knee 4 or More Views [facility] Imaging Services [address] [place] [address] Knee 4 or More Views MR#: [id number] Acct: [id number] Name: JERALD YODER Rep #: [id number] : 1960 M 65 From: Domenico Dewey DO PCP: Care Physician,No Primary Status: [facility] ER Study: Knee 4 or More Views Date of Exam: 04/21/25 Exam# [id number] Ordering Dr: Ar Calle MD PROCEDURE: KNEE 4 OR MORE VIEWS 04/21/2025 REASON FOR EXAM: INJURY/PAIN Initial encounter TECHNIQUE: KNEE 4 OR MORE VIEWS COMPARISON: None. FINDINGS: Bones: No fracture. No dislocation. Joints: Cartilage thinning and periarticular osteophytes indicate osteoarthritis Effusion: None. Soft tissues: Unremarkable Other: RAD/Knee 4 or More Views IMPRESSION: No acute process detected. Reading Location: PENDING SALE TO [facility] CC: Dr. 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 Emergency Department Summary on 03-26-2025 Emergency Department Summary [facility] Medical Records Department [address] [place] [address] Emergency Department Summary 03/26/25 MR#: [id number] Acct: [id number] Name: JERALD YODER Rep #: [id number] : 1960 64 From: Buster Pereyra DO PCP: Care Physician,No Primary Status:[facility] ER Location: ED HPI History of Present Illness Chief Complaint: [facility] Medical History (Updated 03/26/25 @ 22:22 by [...] of health (more content not included)... Normal [facility] Urine Cultureon 02-18-2025 [facility] Staphylococcus aureu s Slemp Count >100,000 Staphylococcus aureus: REACTION cefOXitin Susc Islt Doxycycline Islt NASRIN <=0.5 S Clindamycin.induced Susc Islt NEG Gentamicin Islt NASRIN <=0.5 S Linezolid Islt NASRIN 2 S Moxifloxacin Islt NASRIN <=0.25 S Nitrofurantoin Islt NASRIN <=16 S Oxacillin Susc Islt 0.5 S Tetracycline Islt NASRIN <=1 S TMP SMX Islt NASRIN <=10 S Vancomycin Islt NASRIN 1 S Normal [facility] Comment on above: Performed By: #### M 100.2543 #### [facility] Laboratory [facility] [place], [address] Absolute lymphocyte countOrd ered By: Johann Lemons on 02-16-2025 Lymphocytes Auto (Unsp spec) [#/Vol] 1.39 10*3/uL 0.83-4.[address] [facility] Absolute neutrophil countOrd ered By: Johann Lemons on 02-16-2025 Neutrophils (Bld) [#/Vol] 6.4 10*3/uL 2.0-7.[address] [facility] Absolute neutrophil count 6.4 X10^3/uL 2.0-7.[address] [facility] Anion gap [Moles/Vol]Ordered By: Johann Lemons on 02-16-2025 Anion gap in Serum or Plasma 10 - [facility] Anion gap in Serum or Plasma Ordered By: Johann Lemons on 02-16-2025 Anion gap [Moles/Vol] 10 mmol/L 03-14 [facility] Automated lymphocyte count a s percentage of total leukocytesOrdered By: Johann Lemons on 02-16-2025 Lymphocytes/100 WBC Auto (Unsp spec) 16.0 % Low - [facility] BUN/creatinine ratioOrdered By: Johann Lemons on 02-16-2025 Urea nitrogen/Creatinine [Mass ratio] 16.0 mg/mg 08-[address] [facility] BUN/creatinine ratio 16.0 RATIO 08-19 [facility] Base excess Calc (BldV) [Mol es/Vol]Ordered By: Johann Lemons on 02-16-2025 Venous blood base excess measurement 8 mmol/L High -1.0-3.[address] [facility] Basic Metabolic Profile (BMP )on 02-16-2025 BUN/CRE 16.0 RATIO Normal - [facility] Comment on above: Performed By: #### L 100.0100, L500.2500, L501.6901 ####[facility] [address] [place], [address] Calcium [Mass/Vol] 9.2 mg/dL Normal 7.6-11.0 [facility] Comment on above: Performed By: #### L 100.0100, L500.2500, L501.6901 ####[facility] [address] [place], [address] Chloride [Moles/Vol] 94 mmol/L Low 98-108 [facility] Comment on above: Performed By: #### L 100.0100, L500.2500, L501.6901 ####[facility] [address] [place], [address] CO2 [Moles/Vol] 27.2 mmol/L Normal 21.0-32.[address] [facility] Comment on above: Performed By: #### L 100.0100, L500.2500, L501.6901 ####[facility] [address] [place], [address] Creatinine [Mass/Vol] 0.90 mg/dL Normal 0.70-1.20 [facility] Comment on above: Performed By: #### L 100.0100, L500.2500, L501.6901 ####[facility] [address] [place], [address] ECRCL 104.50 ml/min Normal 50-[address] [facility] Comment on above: Performed By: #### L 100.0100, L500.2500, L501.6901 ####[facility] [address] [place], [address] GAP 10 Normal 5-[address] [facility] Comment on above: Performed By: #### L 100.0100, L500.2500, L501.6901 ####[facility] [address] [place], [address] GFR/1.73 sq M.predicted among non-blacks MDRD (S/P/Bld) [Vol rate/Area] 96 mL/min/{1.73_m2} Normal >[address] [facility] Comment on above: Result Comment: mL/m in/1.73m2 CKD-EPI Creatinine Equation (2020) Performed By: #### L 100.0100, L500.2500, L501.6901 ####[facility] [address] [place], [address] Glucose [Mass/Vol] 453 mg/dL Invalid Interpretation Code 70-[address] [facility] Comment on above: Result Comment: Crit ical Result(s) Called at 0505: by:?? NBURNS TO ENRRIQUE Results read back by same. Performed By: #### L 100.0100, L500.2500, L501.6901 ####[facility] [address] [place], [address] Potassium [Moles/Vol] 3.9 mmol/L Normal 3.3-5.1 [facility] Comment on above: Performed By: #### L 100.0100, L500.2500, L501.6901 ####[facility] [address] [place], [address] Sodium [Moles/Vol] 131 mmol/L Low 133-145 [facility] Comment on above: Performed By: #### L 100.0100, L500.2500, L501.6901 ####[facility] [address] [place], [address] Urea nitrogen [Mass/Vol] 14 mg/dL Normal 4-[address] [facility] Comment on above: Performed By: #### L 100.0100, L500.2500, L501.6901 ####[facility] [address] [place], [address] Basophil percentageOrdered B y: Johann Stevencandie on 02-16-2025 Basophils/100 WBC (Bld) 0.5 % 0-1 [facility] Basophil percentage 0.5 % 0-1 [facility] Bedside Glucoseon 02-16-2025 FINGERSTICK GLU 340 mg/dL High 74-[address] [facility] Comment on above: Result Comment: TAYLOR CORYENT OF PATIENT CARE PER NURSING PROTOCOL Performed By: #### L 500.2500, L501.4020, L100.0100 #### [facility] [address] [place], [address] FINGERSTICK GLU 341 mg/dL High 74-[address] [facility] Comment on above: Result Comment: TAYLOR GEMENT OF PATIENT CARE PER NURSING PROTOCOL Performed By: #### L 500.2500, L501.4020, L100.0100 #### [facility] [address] [place], [address] FINGERSTICK GLU 414 mg/dL High 74-[address] [facility] Comment on above: Result Comment: TAYLOR GEMENT OF PATIENT CARE PER NURSING PROTOCOL Performed By: #### L 500.2500, L501.4020, L100.0100 #### [facility] [address] [place], [address] Beta hydroxybutyrate [Mass/V ol]Ordered By: Johann Lemons on 02-16-2025 Beta-hydroxybutyrate 0.1 mmol/L 0.0-0.3 [facility] Beta-Hydroxbytyrateon 2024 BETA-HYDROXYBUT 0.1 mmol/L Normal 0.0-0.[address] [facility] Comment on above: Performed By: #### L 100.0100, L500.2500, L501.6901 ####[facility] [address] [place], [address] Beta-hydroxybutyrateOrdered By: Johann Lemons on 02-16-2025 Beta hydroxybutyrate [Mass/Vol] 0.1 mmol/L 0.0-0.[address] [facility] Bilirubin Test strip Ql (U)O rdered By: Johann Lemons on 02-16-2025 Bilirubin Ql (U) Negative Negative [facility] CBC W/Diff, Automatedon 01-29 Absolute Lymph 1.39 X10 3/uL Normal 0.83-4.[address] [facility] Comment on above: Performed By: #### L 100.0100, L500.2500, L501.6901 ####[facility] [address] [place], [address] Absolute Neut 6.4 X10 3/uL Normal 2.0-7.[address] [facility] Comment on above: Performed By: #### L 100.0100, L500.2500, L501.6901 ####[facility] [address] [place], [address] Basophils/100 WBC (Bld) 0.5 % Normal 0-1 [facility] Comment on above: Performed By: #### L 100.0100, L500.2500, L501.6901 ####[facility] [address] [place], [address] Eosinophils/100 WBC (Bld) 2.4 % Normal 0-[address] [facility] Comment on above: Performed By: #### L 100.0100, L500.2500, L501.6901 ####[facility] [address] [place], [address] Erythrocyte distribution width (RBC) [Ratio] 12.9 % Normal 11.6-14.[address] [facility] Comment on above: Performed By: #### L 100.0100, L500.2500, L501.6901 ####[facility] [address] [place], [address] Hematocrit (Bld) [Volume fraction] 34.5 % Low 40-[address] [facility] Comment on above: Performed By: #### L 100.0100, L500.2500, L501.6901 ####[facility] [address] [place], [address] Hemoglobin (Bld) [Mass/Vol] 12.2 g/dL Low 13.0-16.[address] [facility] Comment on above: Performed By: #### L 100.0100, L500.2500, L501.6901 ####[facility] [address] [place], [address] IG% 0.500 Normal 0.0-0.[address] [facility] Comment on above: Result Comment: IG% - Immature Granulocytes (promyelocytes, myelocytes and metamyelocytes) > 1% indicates that a LEFT SHIFT is Present. Performed By: #### L 100.0100, L500.2500, L501.6901 ####[facility] [address] [place], [address] Lymphocytes/100 WBC (Bld) 16.0 % Low 19-[address] [facility] Comment on above: Performed By: #### L 100.0100, L500.2500, L501.6901 ####[facility] [address] [place], [address] MCH (RBC) [Entitic mass] 28.0 pg Normal 27.0-32.[address] [facility] Comment on above: Performed By: #### L 100.0100, L500.2500, L501.6901 ####[facility] [address] [place], [address] MCHC (RBC) [Mass/Vol] 35.4 g/dL Normal 32-36 [facility] Comment on above: Performed By: #### L 100.0100, L500.2500, L501.6901 ####[facility] [address] [place], [address] MCV (RBC) [Entitic vol] 79.3 fL Low 80-94 [facility] Comment on above: Performed By: #### L 100.0100, L500.2500, L501.6901 ####[facility] [address] [place], [address] Monocytes/100 WBC (Bld) 7.1 % Normal 0-10 [facility] Comment on above: Performed By: #### L 100.0100, L500.2500, L501.6901 ####[facility] [address] [place], [address] Neutrophils/100 WBC (Bld) 73.5 % High 47-[address] [facility] Comment on above: Performed By: #### L 100.0100, L500.2500, L501.6901 ####[facility] [address] [place], [address] Nucleated RBC (Bld) [#/Vol] 0 10*3/uL Normal 0-[address] [facility] Comment on above: Performed By: #### L 100.0100, L500.2500, L501.6901 ####[facility] [address] [place], [address] Platelet mean volume (Bld) [Entitic vol] 8.8 fL Normal 6.2-12.[address] [facility] Comment on above: Performed By: #### L 100.0100, L500.2500, L501.6901 ####[facility] [address] [place], [address] Platelets (Bld) [#/Vol] 230 10*3/uL Normal 150-[address] [facility] Comment on above: Performed By: #### L 100.0100, L500.2500, L501.6901 ####[facility] [address] [place], [address] RBC (Bld) [#/Vol] 4.35 10*6/uL Low 4.6-6.2 [facility] Comment on above: Performed By: #### L 100.0100, L500.2500, L501.6901 ####[facility] [address] [place], [address] RDW SD 36.9 fl Normal 35.1-43.[address] [facility] Comment on above: Performed By: #### L 100.0100, L500.2500, L501.6901 ####[facility] [address] [place], [address] WBC (Bld) [#/Vol] 8.7 10*3/uL Normal 4.4-11.0 [facility] Comment on above: Performed By: #### L 100.0100, L500.2500, L501.6901 ####[facility] [address] [place], [address] CO2 (BldV) [Moles/Vol]Ordere d By: Johann Lemons on 02-16-2025 CO2 [Moles/Vol] 34 mmol/L High 23-[address] [facility] Venous blood total carbon dioxide measurement 34 mmol/L High 23-[address] [facility] CO2 (BldV) [Partial pressure ]Ordered By: Johann Lemons on 02-16-2025 Venous blood partial pressure of carbon dioxide measurement 54.5 mmHg High 41-[address] [facility] Calcium [Mass/Vol]Ordered By : Johann Lemons on 02-16-2025 Serum or plasma calcium measurement (mass/volume) 9.2 mg/dL 7.6-11.[address] [facility] Carbon dioxide, total [Moles /volume] in Central venous bloodOrdered By: Johann Lemons on 02-16-2025 CO2 [Moles/Vol] 27.2 mmol/L 21.0-32.[address] [facility] Carbon dioxide, total [Moles/volume] in Central venous blood 27.2 mmol/L 21.0-32.[address] [facility] Chest PA and Lateralon 02-16 Chest PA and Lateral [facility] Imaging Services [address] [place] [address] Chest PA and Lateral MR#: [id number] Acct: [id number] Name: JERALD YODER Rep #: [id number] : 1960 M 64 From: Tacho Alcaraz MD PCP: Care Physician,No Primary Status: REG ER Study: Chest PA and Lateral Date of Exam: 02/16/25 Exam# [id number] Ordering Dr: Johann Lemons DO PROCEDURE: CHEST [...] No evidence of acute disease. 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 Chloride assayOrdered By: Julia Lemons on 02-16-2025 Chloride [Moles/Vol] 94 mmol/L Low 98-108 [facility] Chloride assay 94 mmol/L Low 98-[address] [facility] Clarity (U)Ordered By: Roland Lemons on 02-16-2025 Urine clarity Turbid Clear [facility] Color (U)Ordered By: Johann Lemons on 02-16-2025 Urine color determination Yellow Yellow [facility] Creatinine [Mass/Vol]Ordered By: Johann Lemons on 02-16-2025 Serum creatinine measurement (mass/volume) 0.90 mg/dL 0.70-1.[address] [facility] Emergency Department Summary on 02-16-2025 Emergency Department Summary [facility] Medical Records Department [address] [place] [address] Emergency Department Summary 02/16/25 MR#: [id number] Acct: [id number] Name: JERALD YODER Rep #: [id number] : 1960 64 From: Johann Lemons DO [...] symptoms and therefore comes in for evaluation [facility] Medical History (Updated 02/16/25 @ 07:[address] Johann Lemons, DO) Partial traumatic amputation of left index [...] tablet 5 mg PO BID diabetes 03/19/22 0507/22 History insulin glargine 100 unit/mL (3 10 [...] mucous membranes (more content not included)... Normal [facility] Eosinophil percentageOrdered By: Johann Lemons on 02-16-2025 Eosinophils/100 WBC (Bld) 2.4 % 0-[address] [facility] Eosinophil percentage 2.4 % 0-5 [facility] Erythrocyte distribution wid th (RBC) [Ratio]Ordered By: Johann Lemons on 02-16-2025 Erythrocyte distribution width ratio 12.9 % 11.6-14.[address] [facility] Erythrocyte distribution width standard deviation 36.9 fl 35.1-43.[address] [facility] Erythrocyte distribution wid th ratioOrdered By: Johann Lemons on 02-16-2025 Erythrocyte distribution width (RBC) [Ratio] 12.9 % 11.6-14.[address] [facility] Erythrocyte distribution wid th standard deviationOrdered By: Johann Lemons on 02-16-2025 Erythrocyte distribution width (RBC) [Ratio] 36.9 fl 35.1-43.[address] [facility] Estimation of creatinine edinson aranceOrdered By: Johann Lemons on 02-16-2025 Estimation of creatinine clearance 104.50 ml/min 50-[address] [facility] GFR/1.73 sq M.predicted mari g non-blacks MDRD (S/P/Bld) [Vol rate/Area]Ordered By: Johann Lemons on 02-16-2025 Glomerular filtration rate (GFR) estimation/1.73 sq m using serum, plasma, or whole b 96 >[address] [facility] Glomerular filtration rate ( GFR) estimation/1.73 sq m using serum, plasma, or whole bOrdered By: Johann Lemons on 02-16-2025 GFR/1.73 sq M.predicted among non-blacks MDRD (S/P/Bld) [Vol rate/Area] 96 mL/min/{1.73_m2} >[address] [facility] Comment on above: mL/min/1.73m2 CKD-EP I Creatinine Equation (2020) Glucose Ql (U)Ordered By: Julia Lemons on 02-16-2025 Urine glucose detection 1000 mg/dl High Normal [facility] Glucose [Mass/Vol]Ordered By : Johann Lemons on 02-16-2025 Serum glucose measurement (mass/volume) 453 mg/dL High 70-[address] [facility] Glucose measurement at bedsi deOrdered By: Johann Lemons on 02-16-2025 Glucose [Mass/Vol] 340 mg/dL High 74-106 [facility] Comment on above: MANAGEMENT OF PATIEN T CARE PER NURSING PROTOCOL Glucose measurement at bedside 341 mg/dL High 74-[address] [facility] Hematocrit Auto (Bld) [Volum e fraction]Ordered By: Johann Lemons on 02-16-2025 Hematocrit (Bld) [Volume fraction] 34.5 % Low 40-[address] [facility] Automated blood hematocrit (percentage) 34.5 % Low 40-[address] [facility] Hemoglobin measurementOrdere d By: Johann Lemons on 02-16-2025 Hemoglobin (Bld) [Mass/Vol] 12.2 g/dL Low 13.0-16.[address] [facility] Hemoglobin measurement 12.2 g/dL Low 13.0-16.5 [facility] Immature granulocytes/100 WB C Auto (Bld)Ordered By: Johann Lemons on 02-16-2025 Immature granulocytes/100 WBC (Bld) 0.500 % 0.0-0.[address] [facility] Comment on above: IG% - Immature Granu locytes (promyelocytes, myelocytes and metamyelocytes) > 1% indicates that a LEFT SHIFT is Present. Automated immature granulocyte percentage 0.500 % 0.0-0.[address] [facility] Ketones Test strip Ql (U)Ord ered By: Johann Lemons on 02-16-2025 Ketones Ql (U) Negative Negative [facility] Leukocyte esterase Test stri p Ql (U)Ordered By: Johann Lemons on 02-16-2025 Urine leukocyte esterase detection by dipstick 500 /ul High Negative [facility] Lymphocytes Auto (Unsp spec) [#/Vol]Ordered By: Johann Lemons on 02-16-2025 Absolute lymphocyte count 1.39 X10^3/uL 0.83-4.[address] [facility] Lymphocytes/100 WBC Auto (Un sp spec)Ordered By: Johann Lemons on 02-16-2025 Automated lymphocyte count as percentage of total leukocytes 16.0 % Low 19-[address] [facility] MCV (RBC) [Entitic vol]Order ed By: Johann Lemons on 02-16-2025 MCV (mean corpuscular volume) determination 79.3 fL Low 80-[address] [facility] MCV (mean corpuscular volume ) determinationOrdered By: Johann Lemons on 02-16-2025 MCV (RBC) [Entitic vol] 79.3 fL Low 80-94 [facility] Mean corpuscular hemoglobin (MCH) determinationOrdered By: Johann Lemons on 02-16-2025 MCH (RBC) [Entitic mass] 28.0 pg 27.0-32.[address] [facility] Mean corpuscular hemoglobin (MCH) determination 28.0 pg 27.0-32.[address] [facility] Mean corpuscular hemoglobin concentration (MCHC) determinationOrdered By: Johann Lemons on 02-16-2025 MCHC (RBC) [Mass/Vol] 35.4 g/dL - [facility] Mean corpuscular hemoglobin concentration (MCHC) determination 35.4 g/dL -[address] [facility] Mean platelet volume determi nationOrdered By: Johann Lemons on 02-16-2025 Platelet mean volume (Bld) [Entitic vol] 8.8 fL 6.2-12.[address] [facility] Mean platelet volume determination 8.8 fl 6.2-12.[address] [facility] Microscopic analysis of urin e for red blood cells (RBC)Ordered By: Johann Lemons on 02-16-2025 Microscopic analysis of urine for red blood cells (RBC) 0 SEEN /hpf 0-[address] [facility] Microscopic analysis of urine for red blood cells (RBC) 0 SEEN /hpf [facility] Monocyte percentageOrdered B y: Johann Lemons on 02-16-2025 Monocytes/100 WBC (Bld) 7.1 % 0-10 [facility] Monocyte percentage 7.1 % 0-10 [facility] Mucus LM Ql (Urine sed)Order ed By: Johann Lemons on 02-16-2025 Mucus Ql (Urine sed) 0 SEEN /hpf [facility] Neutrophil percentageOrdered By: Johann Lemons on 02-16-2025 Neutrophils/100 WBC (Bld) 73.5 % High 47-[address] [facility] Neutrophil percentage 73.5 % High 47-70 [facility] Nitrite Test strip Ql (U)Ord ered By: Johann Lemons on 02-16-2025 Nitrite Ql (U) Positive High Negative [facility] Urine nitrite test by dipstick Positive High Negative [facility] No Panel InformationOrdered By: Johann Lemons on 02-16-2025 Blood Gas Sample Site Not entered [facility] Blood Gas Specimen Type GRACY [facility] Oxygen Delivery Device Not entered [facility] GRACY [facility] Not entered [facility] Nucleated red blood cell per centageOrdered By: Johann Lemons on 02-16-2025 Nucleated RBC/100 WBC (Bld) [Ratio] 0 % 0-[address] [facility] Nucleated red blood cell percentage 0 % 0-[address] [facility] Oxygen (BldV) [Partial press ure]Ordered By: Johann Lemons on 02-16-2025 Venous blood partial pressure of oxygen measurement 46 mmHg High 25-[address] [facility] Platelet countOrdered By: Julia Lemons on 02-16-2025 Platelets (Bld) [#/Vol] 230 10*3/uL 150-[address] [facility] Platelet count 230 K/mm3 150-[address] [facility] Potassium (Unsp spec) [Mass/ Vol]Ordered By: Johann Lemons on 02-16-2025 Potassium measurement (mass/volume) 3.9 mmol/L 3.3-5.[address] [facility] Potassium measurement (mass/ volume)Ordered By: Johann Lemons on 02-16-2025 Potassium (Unsp spec) [Mass/Vol] 3.9 mmol/L 3.3-5.[address] [facility] Protein Test strip Ql (U)Ord ered By: Johann Lemons on 02-16-2025 Protein Ql (U) 100 mg/dl High Negative [facility] Urine protein assay by test strip, semi-quantitative 100 mg/dl High Negative [facility] RBC Auto (Bld) [#/Vol]Ordere d By: Johann Lemons on 02-16-2025 RBC (Bld) [#/Vol] 4.35 10*6/uL Low 4.6-6.2 [facility] Automated blood erythrocyte count 4.35 M/mm3 Low 4.6-6.[address] [facility] Serum creatinine measurement (mass/volume)Ordered By: Johann Lemons on 02-16-2025 Creatinine [Mass/Vol] 0.90 mg/dL 0.70-1.20 [facility] Serum glucose measurement (m ass/volume)Ordered By: Johann Lemons on 02-16-2025 Glucose [Mass/Vol] 453 mg/dL High 70-99 [facility] Comment on above: Critical Result(s) C alled at 0505: by: MARYAM OSUNA Results read back by same. Serum or plasma calcium yayo urement (mass/volume)Ordered By: Johann Lemons on 02-16-2025 Calcium [Mass/Vol] 9.2 mg/dL 7.6-11.0 [facility] Serum or plasma urea nitroge n measurement (mass/volume)Ordered By: Johann Lemons on 02-16-2025 Urea nitrogen [Mass/Vol] 14 mg/dL 02-[address] [facility] Sodium levelOrdered By: Keith Lemons on 02-16-2025 Sodium [Moles/Vol] 131 mmol/L Low 133-145 [facility] Sodium level 131 mmol/L Low 133-[address] [facility] Specific gravity (U) [Rel de nsity]Ordered By: Johann Lemons on 02-16-2025 Urine specific gravity measurement 1.010 1.002-1.[address] [facility] Squamous epithelial cells de tection in urine sediment by light microscopyOrdered By: Johann Lemons on 02-16-2025 Epithelial cells.squamous LM Ql (Urine sed) 0 SEEN /hpf 0-[address] [facility] Urea nitrogen [Mass/Vol]Orde red By: Johann Lemons on 02-16-2025 Serum or plasma urea nitrogen measurement (mass/volume) 14 mg/dL 02-[address] [facility] Urinalysis, Completeon 02-16 WBC >100 SEEN Normal 0-[address] [facility] Comment on above: Order Comment: 'TROP ' Serial specimen #1, #2 or #3: 1 Performed By: #### L 500.2500, L501.4020, L100.0100 #### [facility] [address] [place], [place], [address] BACTERIA 0 SEEN Normal None Seen [facility] Comment on above: Order Comment: 'TROP ' Serial specimen #1, #2 or #3: 1 Performed By: #### L 500.2500, L501.4020, L100.0100 #### [facility] [address] [place], [address] EPI,SQUAMOUS 0 SEEN Normal [address] [place] [address] Comment on above: Order Comment: 'TROP ' Serial specimen #1, #2 or #3: 1 Performed By: #### L 500.2500, L501.4020, L100.0100 #### [facility] [address] [place], [address] Mucus Ql (Urine sed) 0 SEEN Normal [facility] Comment on above: Order Comment: 'TROP ' Serial specimen #1, #2 or #3: 1 Performed By: #### L 500.2500, L501.4020, L100.0100 #### [facility] [address] [place], [address] RBC 0 SEEN Normal 0-[address] [facility] Comment on above: Order Comment: 'TROP ' Serial specimen #1, #2 or #3: 1 Performed By: #### L 500.2500, L501.4020, L100.0100 #### [facility] [address] [place], [address] Urine blood detectionOrdered By: Johann Lemons on 02-16-2025 Urine blood detection 150 /ul High Negative [facility] Urine clarityOrdered By: Otoniel Lemons on 02-16-2025 Clarity (U) Turbid Clear [facility] Urine color determinationOrd ered By: Johann Lemons on 02-16-2025 Color (U) Yellow Yellow [facility] Urine cultureOrdered By: Otoniel Lemons on 02-16-2025 Bacteria identified Cx Nom (U) Staphylococcus aureus Abnormal [facility] Urine glucose detectionOrder ed By: Johann Lemons on 02-16-2025 Glucose Ql (U) 1000 mg/dl High Normal [facility] Urine leukocyte esterase det ection by dipstickOrdered By: Johann Lemons on 02-16-2025 Leukocyte esterase Test strip Ql (U) 500 /ul High Negative [facility] Urine pHOrdered By: Johann murcias on 02-16-2025 pH (U) 6.0 [pH] 5.0 - 8.[address] [facility] Urine sediment bacteria coun t by microscopy (number/high power field)Ordered By: Johann Lemons on 02-16-2025 Bacteria LM.HPF (Urine sed) [#/Area] 0 /[HPF] None Seen [facility] Urine specific gravity measu rementOrdered By: Johann Lemons on 02-16-2025 Specific gravity (U) [Rel density] 1.010 1.002-1.[address] [facility] Urine total bilirubin detect ion by test stripOrdered By: Johann Lemons on 02-16-2025 Urine total bilirubin detection by test strip Negative Negative [facility] Urine urobilinogen measureme ntOrdered By: Johann Lemons on 02-16-2025 Urobilinogen Ql (U) Normal mg/dl Normal [facility] Urobilinogen Ql (U)Ordered B y: Johann Lemons on 02-16-2025 Urine urobilinogen measurement Normal mg/dl Normal [facility] Venous Blood Gason Blood Gas Type GRACY Normal [facility] Comment on above: Performed By: #### L 500.2500, L501.4020, L100.0100 #### [facility] [address] [place], [address] CO2 [Moles/Vol] 34 mmol/L High 23-[address] [facility] Comment on above: Performed By: #### L 500.2500, L501.4020, L100.0100 #### [facility] [address] [place], [address] HCO3 (Bld) [Moles/Vol] 33 mmol/L High 22-26 [facility] Comment on above: Performed By: #### L 500.2500, L501.4020, L100.0100 #### [facility] [address] [place], [address] O2 Delivery Dev Not entered [facility] Comment on above: Performed By: #### L 500.2500, L501.4020, L100.0100 #### [facility] [address] [place], [address] SITE Not entered [facility] Comment on above: Performed By: #### L 500.2500, L501.4020, L100.0100 #### [facility] [address] [place], [address] VBG BE 8 mmol/L High -1.0-3.[address] [facility] Comment on above: Performed By: #### L 500.2500, L501.4020, L100.0100 #### [facility] [address] [place], [address] VBG pCO2 54.5 mmHg High 41-[address] [facility] Comment on above: Performed By: #### L 500.2500, L501.4020, L100.0100 #### [facility] [address] [place], [address] VBG pH 7.39 Normal 7.32-7.[address] [facility] Comment on above: Performed By: #### L 500.2500, L501.4020, L100.0100 #### [facility] [address] [place], [address] VBG PO2 46 mmHg High 25-[address] [facility] Comment on above: Performed By: #### L 500.2500, L501.4020, L100.0100 #### [facility] [address] [place], [address] VBG SO2 80 High 50-[address] [facility] Comment on above: Performed By: #### L 500.2500, L501.4020, L100.0100 #### [facility] [address] [place], [address] Venous blood base excess sarina surementOrdered By: Johann Lemons on 02-16-2025 Base excess Calc (BldV) [Moles/Vol] 8 mmol/L High -1.0-3.[address] [facility] Venous blood bicarbonate sarina surementOrdered By: Johann Lemons on 02-16-2025 HCO3 (Bld) [Moles/Vol] 33 mmol/L High 22-26 [facility] Venous blood bicarbonate measurement 33 mmol/L High 22-[address] [facility] Venous blood oxygen saturati on measurementOrdered By: Johann Lemons on 02-16-2025 Oxygen saturation in Blood 80 % High 50-[address] [facility] Venous blood oxygen saturation measurement 80 % High 50-[address] [facility] Venous blood pH measurementO rdered By: Johann Lemons on 02-16-2025 pH (BldV) 7.39 [pH] 7.32-7.[address] [facility] Venous blood partial pressur e of carbon dioxide measurementOrdered By: Johann Lemons on 02-16-2025 CO2 (BldV) [Partial pressure] 54.5 mm[Hg] High 41-[address] [facility] Venous blood partial pressur e of oxygen measurementOrdered By: Johann Lemons on 02-16-2025 Oxygen (BldV) [Partial pressure] 46 mm[Hg] High 25-[address] [facility] White blood cell (WBC) count Ordered By: Johann Lemons on 02-16-2025 WBC (Bld) [#/Vol] 8.7 10*3/uL 4.4-11.0 [facility] White blood cell (WBC) count 8.7 K/mm3 4.4-11.[address] [facility] White blood cell countOrdere d By: Johann Lemons on 02-16-2025 White blood cell count >100 SEEN /hpf 0-[address] [facility] White blood cell count >100 SEEN /hpf 0-[address] [facility] pH (BldV)Ordered By: Johann Lemons on 02-16-2025 Venous blood pH measurement 7.39 7.32-7.[address] [facility] pH (U)Ordered By: Wilmer on 02-16-2025 Urine pH 6.0 5.0 - 8.[address] [facility] Urine Cultureon 12-29-2024 [facility] Staphylococcus aureu s Slemp Count >100,000 Staphylococcus aureus: REACTION cefOXitin Susc Islt Doxycycline Islt NASRIN <=0.5 S Clindamycin.induced Susc Islt NEG Gentamicin Islt NASRIN <=0.5 S Linezolid Islt NASRIN 2 S Moxifloxacin Islt NASRIN <=0.25 S Nitrofurantoin Islt NASRIN <=16 S Oxacillin Susc Islt 0.5 S Tetracycline Islt NASRIN <=1 S TMP SMX Islt NASRIN <=10 S Vancomycin Islt NASRIN <=0.5 S Normal [facility] Comment on above: Performed By: #### M 100.7619 #### [facility] [address] [place], [address] Bacteria LM.HPF (Urine sed) [#/Area]Ordered By: ED PROVIDER on 12-27-2024 Urine sediment bacteria count by microscopy (number/high power field) 3+ /hpf None Seen [facility] Bilirubin Test strip Ql (U)O rdered By: ED PROVIDER on 12-27-2024 Bilirubin Ql (U) Negative Negative [facility] Clarity (U)Ordered By: ED DC OVIDER on 12-27-2024 Urine clarity Turbid Clear [facility] Color (U)Ordered By: ED PROV IDER on 12-27-2024 Urine color determination Yellow Yellow [facility] Emergency Department Summary on 12-27-2024 Emergency Department Summary [facility] Medical Records Department [address] [place] [address] Emergency Department Summary 12/27/24 MR#: [id number] Acct: [id number] Name: JERALD YODER Rep #: [id number] : 1960 64 From: Panchito Yun PCP: [...] Neck f (more content not included)... Normal [facility] Glucose Ql (U)Ordered By: ED PROVIDER on 12-27-2024 Urine glucose detection 1000 mg/dl High Normal [facility] Ketones Test strip Ql (U)Ord ered By: ED PROVIDER on 12-27-2024 Ketones Ql (U) Negative Negative [facility] Leukocyte esterase Test stri p Ql (U)Ordered By: ED PROVIDER on 12-27-2024 Urine leukocyte esterase detection by dipstick 500 /ul High Negative [facility] Microscopic analysis of urin e for red blood cells (RBC)Ordered By: ED PROVIDER on 12-27-2024 Microscopic analysis of urine for red blood cells (RBC) 25-50 SEEN /hpf 0-[address] [facility] Microscopic analysis of urine for red blood cells (RBC) 25-50 SEEN /hpf 0-[address] [facility] Mucus LM Ql (Urine sed)Order ed By: ED PROVIDER on 12-27-2024 Mucus Ql (Urine sed) 0 SEEN /hpf [facility] Nitrite Test strip Ql (U)Ord ered By: ED PROVIDER on 12-27-2024 Nitrite Ql (U) Positive High Negative [facility] Urine nitrite test by dipstick Positive High Negative [facility] Protein Test strip Ql (U)Ord ered By: ED PROVIDER on 12-27-2024 Protein Ql (U) 500 mg/dl High Negative [facility] Urine protein assay by test strip, semi-quantitative 500 mg/dl High Negative [facility] Specific gravity (U) [Rel de nsity]Ordered By: ED PROVIDER on 12-27-2024 Urine specific gravity measurement 1.015 1.002-1.[address] [facility] Squamous epithelial cells de tection in urine sediment by light microscopyOrdered By: ED PROVIDER on 12-27-2024 Epithelial cells.squamous LM Ql (Urine sed) 0 SEEN /hpf 0- [facility] Squamous epithelial cells detection in urine sediment by light microscopy 0 SEEN /hpf [facility] Urinalysis, Completeon 12-27 BACTERIA 3+ /hpf Normal None Seen [facility] Comment on above: Order Comment: 'TROP ' Serial specimen #1, #2 or #3: 1 Performed By: #### L 500.2500, L501.4020, L100.0100 #### [facility] [address] [place], [address] RBC 25-50 SEEN Normal [address] [place] [address] Comment on above: Order Comment: 'TROP ' Serial specimen #1, #2 or #3: 1 Performed By: #### L 500.2500, L501.4020, L100.0100 #### [facility] [address] [place], [address] WBC >100 SEEN Normal [address] [place] [address] Comment on above: Order Comment: 'TROP ' Serial specimen #1, #2 or #3: 1 Result Comment: Micr oscopic field is filled. Other elements may be obscured. Performed By: #### L 500.2500, L501.4020, L100.0100 #### [facility] [address] [place], [address] EPI,SQUAMOUS 0 SEEN Normal 0-[address] [facility] Comment on above: Order Comment: 'TROP ' Serial specimen #1, #2 or #3: 1 Performed By: #### L 500.2500, L501.4020, L100.0100 #### [facility] [address] [place], [address] Mucus Ql (Urine sed) 0 SEEN Normal [facility] Comment on above: Order Comment: 'TROP ' Serial specimen #1, #2 or #3: 1 Performed By: #### L 500.2500, L501.4020, L100.0100 #### [facility] [address] [place], [address] Urine blood detectionOrdered By: ED PROVIDER on 12-27-2024 Urine blood detection 250 /ul High Negative [facility] Urine clarityOrdered By: ED PROVIDER on 12-27-2024 Clarity (U) Turbid Clear [facility] Urine color determinationOrd ered By: ED PROVIDER on 12-27-2024 Color (U) Yellow Yellow [facility] Urine glucose detectionOrder ed By: ED PROVIDER on 12-27-2024 Glucose Ql (U) 1000 mg/dl High Normal [facility] Urine leukocyte esterase det ection by dipstickOrdered By: ED PROVIDER on 12-27-2024 Leukocyte esterase Test strip Ql (U) 500 /ul High Negative [facility] Urine pHOrdered By: ED PROVI CRISTINA on 12-27-2024 pH (U) 6.0 [pH] 5.0 - 8.[address] [facility] Urine sediment bacteria coun t by microscopy (number/high power field)Ordered By: ED PROVIDER on 12-27-2024 Bacteria LM.HPF (Urine sed) [#/Area] 3 /[HPF] None Seen [facility] Urine specific gravity measu rementOrdered By: ED PROVIDER on 12-27-2024 Specific gravity (U) [Rel density] 1.015 1.002-1.[address] [facility] Urine total bilirubin detect ion by test stripOrdered By: ED PROVIDER on 12-27-2024 Urine total bilirubin detection by test strip Negative Negative [facility] Urine urobilinogen measureme ntOrdered By: ED PROVIDER on 12-27-2024 Urobilinogen Ql (U) Normal mg/dl Normal [facility] Urobilinogen Ql (U)Ordered B y: ED PROVIDER on 12-27-2024 Urine urobilinogen measurement Normal mg/dl Normal [facility] White blood cell countOrdere d By: ED PROVIDER on 12-27-2024 White blood cell count >100 SEEN /hpf 0-[address] [facility] Comment on above: Microscopic field is filled. Other elements may be obscured. White blood cell count >100 SEEN /hpf 0-[address] [facility] pH (U)Ordered By: ED PROVIDE R on 12-27-2024 Urine pH 6.0 5.0 - 8.[address] [facility] Urine cultureOrdered By: Harley Castillo on 12-26-2024 Bacteria identified Cx Nom (U) Staphylococcus aureus Abnormal [facility] Urine culture Staphylococcus aureus Abnormal [facility] ALP [Catalytic activity/Vol] Ordered By: Avni Cash on 12-20-2024 Serum or plasma alkaline phosphatase measurement 117 U/L 45-[address] [facility] ALT [Catalytic activity/Vol] Ordered By: Avni Cash on 12-20-2024 Serum or plasma alanine aminotransferase (ALT) measurement 16 U/L 16-[address] [facility] Abdomen/Pelvis W IV Cont ONL Yon 12-20-2024 Abdomen/Pelvis W IV Cont ONLY [facility] Imaging Services [address] [place] [address] Abdomen/Pelvis W IV Cont ONLY MR#: [id number] Acct: [id number] Name: JERALD YODER Rep #: [id number] : 1960 M 64 From: Beck Quigley MD PCP: Care Physician,No Primary Status: REG ER Study: Abdomen/Pelvis W IV Cont ONLY Date of Exam: Exam# [id number] Ordering Dr: Avni Cash MD PROCEDURE: ABDOMEN/PELVIS [...] use of iterative reconstruction technique). Reading Location: [place] [address] CC: Dr. 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 Absolute lymphocyte countOrd ered By: Avni Cash on 12-20-2024 Lymphocytes Auto (Unsp spec) [#/Vol] 1.10 10*3/uL 0.83-4.[address] [facility] Absolute neutrophil countOrd ered By: Avni Cash on 12-20-2024 Neutrophils (Bld) [#/Vol] 6.6 10*3/uL 2.0-7.[address] [facility] Absolute neutrophil count 6.6 X10^3/uL 2.0-7.[address] [facility] Albumin [Mass/Vol]Ordered By : Avni Cash on 12-20-2024 Serum or plasma albumin measurement (mass/volume) 3.4 g/dL 3.2-5.[address] [facility] Albumin to globulin ratioOrd ered By: Avni Cash on 12-20-2024 Albumin/Globulin [Mass ratio] 0.8 {ratio} Low 0.9-2.[address] [facility] Albumin to globulin ratio 0.8 RATIO Low 0.9-2.[address] [facility] Automated lymphocyte count a s percentage of total leukocytesOrdered By: Avni Cash on 12-20-2024 Lymphocytes/100 WBC Auto (Unsp spec) 13.2 % Low 19-[address] [facility] Basophil percentageOrdered B y: Avni Cash on 12-20-2024 Basophils/100 WBC (Bld) 0.5 % 0-1 [facility] [facility] Basophil percentage 0.5 % 0-1 [facility] Bilirubin Test strip Ql (U)O rdered By: Avni Cash on 12-20-2024 Bilirubin Ql (U) Negative Negative [facility] Bilirubin, totalOrdered By: Avni Cash on 12-20-2024 Bilirubin [Mass/Vol] 0.70 mg/dL 0.20-1.00 [facility] Comment on above: For patients on eltr ombopag therapy, use of Dimension Gilliam TBIL is not recommended. Bilirubin, total 0.70 mg/dL 0.20-1.[address] [facility] Blood urea nitrogen (BUN)/cr eatinine ratioOrdered By: Avni Cash on 12-20-2024 Urea nitrogen/Creatinine [Mass ratio] 11.2 mg/mg 08-[address] [facility] Blood urea nitrogen (BUN)/creatinine ratio 11.2 RATIO 08-[address] [facility] CBC W/Diff, Automatedon 12-02 Absolute Lymph 1.10 X10 3/uL Normal 0.83-4.[address] [facility] Comment on above: Performed By: #### M 100.2199 #### [facility] [address] [place], [address] Absolute Neut 6.6 X10 3/uL Normal 2.0-7.[address] [facility] Comment on above: Performed By: #### M 100.2199 #### [facility] [address] [place], [address] Basophils/100 WBC (Bld) 0.5 % Normal 0-1 [facility] Comment on above: Performed By: #### M 100.2199 #### [facility] [address] [place], [address] Eosinophils/100 WBC (Bld) 1.7 % Normal 0-[address] [facility] Comment on above: Performed By: #### M 100.2200 #### [facility] [address] [place], [address] Erythrocyte distribution width (RBC) [Ratio] 13.9 % Normal 11.6-14.[address] [facility] Comment on above: Performed By: #### M 100.2200 #### [facility] [address] [place], [address] Hematocrit (Bld) [Volume fraction] 40.7 % Normal 40-[address] [facility] Comment on above: Performed By: #### M 100.2200 #### [facility] [address] [place], [address] Hemoglobin (Bld) [Mass/Vol] 14.4 g/dL Normal 13.0-16.[address] [facility] Comment on above: Performed By: #### M 100.2200 #### [facility] [address] [place], [address] IG% 0.800 Normal 0.0-0.[address] [facility] Comment on above: Result Comment: IG% - Immature Granulocytes (promyelocytes, myelocytes and metamyelocytes) > 1% indicates that a LEFT SHIFT is Present. Performed By: #### M 100.2200 #### [facility] [address] [place], [address] Lymphocytes/100 WBC (Bld) 13.2 % Low 19-[address] [facility] Comment on above: Performed By: #### M 100.2200 #### [facility] [address] [place], [address] MCH (RBC) [Entitic mass] 29.1 pg Normal 27.0-32.[address] [facility] Comment on above: Performed By: #### M 100.2200 #### [facility] [address] [place], [address] MCHC (RBC) [Mass/Vol] 35.4 g/dL Normal 32-36 [facility] Comment on above: Performed By: #### M 100.2200 #### [facility] [address] [place], [address] MCV (RBC) [Entitic vol] 82.2 fL Normal 80-94 [facility] Comment on above: Performed By: #### M 100.2200 #### [facility] [address] [place], [address] Monocytes/100 WBC (Bld) 5.3 % Normal 0-10 [facility] Comment on above: Performed By: #### M 100.2200 #### [facility] [address] [place], [address] Neutrophils/100 WBC (Bld) 78.5 % High 47-[address] [facility] Comment on above: Performed By: #### M 100.2200 #### [facility] [address] [place], [address] Nucleated RBC (Bld) [#/Vol] 0 10*3/uL Normal 0-[address] [facility] Comment on above: Performed By: #### M 100.2200 #### [facility] [address] [place], [address] Platelet mean volume (Bld) [Entitic vol] 9.3 fL Normal 6.2-12.[address] [facility] Comment on above: Performed By: #### M 100.2200 #### [facility] [address] [place], [address] Platelets (Bld) [#/Vol] 281 10*3/uL Normal 150-[address] [facility] Comment on above: Performed By: #### M 100.2200 #### [facility] [address] [place], [address] RBC (Bld) [#/Vol] 4.95 10*6/uL Normal 4.6-6.2 [facility] Comment on above: Performed By: #### M 100.2200 #### [facility] [address] [place], [address] RDW SD 41.1 fl Normal 35.1-43.[address] [facility] Comment on above: Performed By: #### M 100.2200 #### [facility] [address] [place], [address] WBC (Bld) [#/Vol] 8.4 10*3/uL Normal 4.4-11.0 [facility] Comment on above: Performed By: #### M 100.2200 #### [facility] [address] [place], [address] Calcium [Mass/Vol]Ordered By : Avni Cash on 12-20-2024 Serum or plasma calcium measurement (mass/volume) 9.7 mg/dL 8.5-10.[address] [facility] Carbon dioxide measurementOr dered By: Avni Cash on 12-20-2024 CO2 [Moles/Vol] 31.0 mmol/L 21.0-32.[address] [facility] Carbon dioxide measurement 31.0 mmol/L 21.0-32.[address] [facility] Chloride measurementOrdered By: Avni Cash on 12-20-2024 Chloride [Moles/Vol] 99 mmol/L 98-107 [facility] Chloride measurement 99 mmol/L 98-107 [facility] Clarity (U)Ordered By: Avni Cash on 12-20-2024 Urine clarity Clear Clear [facility] Color (U)Ordered By: Avni hauser on 12-20-2024 Urine color determination Yellow Yellow [facility] Comprehensive Metabolic Prof ilon 12-20-2024 Albumin [Mass/Vol] 3.4 g/dL Normal 3.2-5.0 [facility] Comment on above: Performed By: #### M 100.2200 #### [facility] [address] [place], [address] Albumin/Globulin [Mass ratio] 0.8 {ratio} Low 0.9-2.[address] [facility] Comment on above: Performed By: #### M 100.2200 #### [facility] [address] [place], [address] ALK P 117 U/L Normal 45-[address] [facility] Comment on above: Performed By: #### M 100.2200 #### [facility] [address] [place], [address] ALT [Catalytic activity/Vol] 16 U/L Normal 16-[address] [facility] Comment on above: Performed By: #### M 100.2200 #### [facility] [address] [place], [address] AST [Catalytic activity/Vol] 8 U/L Low 15-[address] [facility] Comment on above: Performed By: #### M 100.2200 #### [facility] [address] [place], [address] Bilirubin [Mass/Vol] 0.70 mg/dL Normal 0.20-1.00 [facility] Comment on above: Result Comment: For patients on eltrombopag therapy, use of Dimension Gilliam TBIL is not recommended. Performed By: #### M 100.2200 #### [facility] [address] [place], [address] BUN/CRE 11.2 RATIO Normal 10-[address] [facility] Comment on above: Performed By: #### M 100.2200 #### [facility] [address] [place], [address] CA,Total 9.7 mg/dL Normal 8.5-10.[address] [facility] Comment on above: Performed By: #### M 100.2200 #### [facility] [address] [place], [address] Chloride [Moles/Vol] 99 mmol/L Normal 98-107 [facility] Comment on above: Performed By: #### M 100.2200 #### [facility] [address] [place], [address] CO2 [Moles/Vol] 31.0 mmol/L Normal 21.0-32.[address] [facility] Comment on above: Performed By: #### M 100.2200 #### [facility] [address] [place], [address] Creatinine [Mass/Vol] 0.89 mg/dL Normal 0.70-1.30 [facility] Comment on above: Result Comment: The validity of the calculated GFR GFRAA in patients over 70 years has not been determined. Clinical correlation is essential. Performed By: #### M 100.2200 #### [facility] [address] [place], [address] EST GFR - AA 110 mL/min Normal >[address] [facility] Comment on above: Result Comment: Afri can Omani GFR Calc Performed By: #### M 100.2200 #### [facility] [address] [place], [address] GAP 5 Normal 5-[address] [facility] Comment on above: Performed By: #### M 100.2200 #### [facility] [address] [place], [address] GFR/1.73 sq M.predicted among non-blacks MDRD (S/P/Bld) [Vol rate/Area] 91 mL/min/{1.73_m2} Normal >[address] [facility] Comment on above: Result Comment: Non- GFR Calc Performed By: #### M 100.2200 #### [facility] [address] [place], [address] Globulin (S) [Mass/Vol] 4.1 g/dL Normal 2.2-4.2 [facility] Comment on above: Performed By: #### M 100.2200 #### [facility] [address] [place], [address] Glucose [Mass/Vol] 424 mg/dL High 74-106 [facility] Comment on above: Result Comment: Gluc ose result greater than or equal to 200 mg/dL suggests DIABETES MELLITUS per A.D.A. criteria. Performed By: #### M 100.2200 #### [facility] [address] [place], [address] Potassium [Moles/Vol] 4.3 mmol/L Normal 3.5-5.1 [facility] Comment on above: Performed By: #### M 100.2200 #### [facility] [address] [place], [address] Sodium [Moles/Vol] 135 mmol/L Low 136-145 [facility] Comment on above: Performed By: #### M 100.2200 #### [facility] [address] [place], [address] T PROT 7.5 g/dL Normal 6.4-8.[address] [facility] Comment on above: Performed By: #### M 100.2200 #### [facility] [address] [place], [address] Urea nitrogen [Mass/Vol] 10 mg/dL Normal 7-[address] [facility] Comment on above: Performed By: #### M 100.2200 #### [facility] [address] [place], [address] Creatinine [Mass/Vol]Ordered By: Avni Cash on 12-20-2024 Serum or plasma creatinine measurement (mass/volume) 0.89 mg/dL 0.70-1.[address] [facility] Emergency Department Summary on 12-20-2024 Emergency Department Summary [facility] Medical Records Department [address] [place] [address] Emergency Department Summary 12/20/24 MR#: [id number] Acct: [id number] Name: JERALD YODER Rep #: [id number] : 1960 64 From: Avni Cash MD [...] Genitourinary G (more content not included)... Normal [facility] Eosinophil percentageOrdered By: Avni Cash on 12-20-2024 Eosinophils/100 WBC (Bld) 1.7 % 0-[address] [facility] Eosinophil percentage 1.7 % 0-5 [facility] Erythrocyte distribution wid th (RBC) [Ratio]Ordered By: Avni Cash on 12-20-2024 Erythrocyte distribution width ratio 13.9 % 11.6-14.[address] [facility] Erythrocyte distribution width standard deviation 41.1 fl 35.1-43.[address] [facility] Erythrocyte distribution wid th ratioOrdered By: Avni Cash on 12-20-2024 Erythrocyte distribution width (RBC) [Ratio] 13.9 % 11.6-14.[address] [facility] Erythrocyte distribution wid th standard deviationOrdered By: Avni Cash on 12-20-2024 Erythrocyte distribution width (RBC) [Ratio] 41.1 fl 35.1-43.[address] [facility] Estimated glomerular filtrat ion rate (GFR) AmericanOrdered By: Avni Cash on 12-20-2024 Estimated glomerular filtration rate (GFR) 110 mL/min >[address] [facility] Glomerular filtration rate ( GFR) estimationOrdered By: Avni Cash on 12-20-2024 GFR/1.73 sq M.predicted among non-blacks MDRD (S/P/Bld) [Vol rate/Area] 91 mL/min/{1.73_m2} >[address] [facility] Comment on above: Non- GFR Calc Glomerular filtration rate (GFR) estimation 91 mL/min >[address] [facility] Glucose Ql (U)Ordered By: Vitor Cash on 12-20-2024 Urine glucose detection 1000 mg/dl High Normal [facility] Glucose measurementOrdered B y: Avni Shailesh on 12-20-2024 Glucose [Mass/Vol] 424 mg/dL High 74-106 [facility] Comment on above: Glucose result great er than or equal to 200 mg/dLsuggests DIABETES MELLITUS per A.D.A. criteria. Glucose measurement 424 mg/dL High 74-106 [facility] Hematocrit Auto (Bld) [Volum e fraction]Ordered By: Avni Cash on 12-20-2024 Hematocrit (Bld) [Volume fraction] 40.7 % 40-[address] [facility] Automated blood hematocrit (percentage) 40.7 % 40-[address] [facility] Hemoglobin measurementOrdere d By: Avni Cash on 12-20-2024 Hemoglobin (Bld) [Mass/Vol] 14.4 g/dL 13.0-16.[address] [facility] Hemoglobin measurement 14.4 g/dL 13.0-16.5 [facility] Hyaline casts LM.LPF (Urine sed) [#/Area]Ordered By: Avni Cash on 12-20-2024 Hyaline casts (Urine sed) [#/Area] 0 /[LPF] 0-[address] [facility] Urine sediment hyaline cast count by microscopy (number/low power field) 0-5 SEEN /lpf 0-[address] [facility] Immature granulocytes/100 WB C Auto (Bld)Ordered By: Avni Cash on 12-20-2024 Immature granulocytes/100 WBC (Bld) 0.800 % 0.0-0.[address] [facility] Comment on above: IG% - Immature Granu locytes (promyelocytes, myelocytes and metamyelocytes) > 1% indicates that a LEFT SHIFT is Present. Automated immature granulocyte percentage 0.800 % 0.0-0.[address] [facility] Ketones Test strip Ql (U)Ord ered By: Avni Cash on 12-20-2024 Ketones Ql (U) Negative Negative [facility] - Chemistry and C hemistry - challengeOrdered By: Avni Cash on 12-20-2024 AST [Catalytic activity/Vol] 8 U/L Low 15-[address] [facility] Lipaseon 12-20-2024 Lipase [Catalytic activity/Vol] 13 U/L Low 73-[address] [facility] Comment on above: Performed By: #### M 067.7590 #### [facility] [address] [place], [address] Lipase measurementOrdered By : Avni Cash on 12-20-2024 Lipase [Catalytic activity/Vol] 13 U/L Low 73-[address] [facility] Lipase measurement 13 U/L Low 73-393 [facility] Lymphocytes Auto (Unsp spec) [#/Vol]Ordered By: Avni Cash on 12-20-2024 Absolute lymphocyte count 1.10 X10^3/uL 0.83-4.[address] [facility] Lymphocytes/100 WBC Auto (Un sp spec)Ordered By: Avni Cash on 12-20-2024 Automated lymphocyte count as percentage of total leukocytes 13.2 % Low 19-[address] [facility] MCV (RBC) [Entitic vol]Order ed By: Avni Cash on 12-20-2024 MCV (mean corpuscular volume) determination 82.2 fL 80-[address] [facility] MCV (mean corpuscular volume ) determinationOrdered By: Avni Cash on 12-20-2024 MCV (RBC) [Entitic vol] 82.2 fL 80-94 [facility] Mean corpuscular hemoglobin (MCH) determinationOrdered By: Avni Cash on 12-20-2024 MCH (RBC) [Entitic mass] 29.1 pg 27.0-32.[address] [facility] Mean corpuscular hemoglobin (MCH) determination 29.1 pg 27.0-32.[address] [facility] Mean corpuscular hemoglobin concentration (MCHC) determinationOrdered By: Avni Cash on 12-20-2024 MCHC (RBC) [Mass/Vol] 35.4 g/dL 32-36 [facility] Mean corpuscular hemoglobin concentration (MCHC) determination 35.4 g/dL -[address] [facility] Mean platelet volume determi nationOrdered By: Avni Cash on 12-20-2024 Platelet mean volume (Bld) [Entitic vol] 9.3 fL 6.2-12.[address] [facility] Mean platelet volume determination 9.3 fl 6.2-12.[address] [facility] Microscopic analysis of urin e for red blood cells (RBC)Ordered By: Avni Cash on 12-20-2024 Microscopic analysis of urine for red blood cells (RBC) 0-5 SEEN /hpf 0-[address] [facility] Monocyte percentageOrdered B y: Avni Cash on 12-20-2024 Monocytes/100 WBC (Bld) 5.3 % 0-10 [facility] Monocyte percentage 5.3 % 0-10 [facility] Mucus LM Ql (Urine sed)Order ed By: Avni Cash on 12-20-2024 Mucus Ql (Urine sed) 0 SEEN /hpf [facility] Neutrophil percentageOrdered By: Avni Cash on 12-20-2024 Neutrophils/100 WBC (Bld) 78.5 % High 47-[address] [facility] Neutrophil percentage 78.5 % High 47-70 [facility] Nitrite Test strip Ql (U)Ord ered By: Avni Cash on 12-20-2024 Nitrite Ql (U) Negative Negative [facility] No Panel InformationOrdered By: Avni Cash on 12-20-2024 8 U/L Low 15-[address] [facility] Nucleated red blood cell per centageOrdered By: Avni Cash on 12-20-2024 Nucleated RBC/100 WBC (Bld) [Ratio] 0 % 0-[address] [facility] Nucleated red blood cell percentage 0 % 0-[address] [facility] Platelet countOrdered By: Vitor Cash on 12-20-2024 Platelets (Bld) [#/Vol] 281 10*3/uL 150-[address] [facility] Platelet count 281 K/mm3 150-[address] [facility] Potassium measurementOrdered By: Avni Cash on 12-20-2024 Potassium [Moles/Vol] 4.3 mmol/L 3.5-5.1 [facility] Potassium measurement 4.3 mmol/L 3.5-5.1 [facility] Protein Test strip Ql (U)Ord ered By: Avni Cash on 12-20-2024 Protein Ql (U) Negative Negative [facility] RBC Auto (Bld) [#/Vol]Ordere d By: Avni Cash on 12-20-2024 RBC (Bld) [#/Vol] 4.95 10*6/uL 4.6-6.2 [facility] Automated blood erythrocyte count 4.95 M/mm3 4.6-6.[address] [facility] Serum anion gap measurementO rdered By: Avni Cash on 12-20-2024 Anion gap [Moles/Vol] 5 mmol/L 5-15 [facility] Serum anion gap measurement 5 5-[address] [facility] Serum globulin measurementOr dered By: Avni Cash on 12-20-2024 Globulin (S) [Mass/Vol] 4.1 g/dL 2.2-4.2 [facility] Serum globulin measurement 4.1 g/dL 2.2-4.[address] [facility] Serum or plasma alanine wagoner otransferase (ALT) measurementOrdered By: Avni Cash on 12-20-2024 ALT [Catalytic activity/Vol] 16 U/L 16-[address] [facility] Serum or plasma albumin yayo urement (mass/volume)Ordered By: Avni Cash on 12-20-2024 Albumin [Mass/Vol] 3.4 g/dL 3.2-5.0 [facility] Serum or plasma alkaline andrzej sphatase measurementOrdered By: Avni Cash on 12-20-2024 ALP [Catalytic activity/Vol] 117 U/L 45-[address] [facility] Serum or plasma calcium yayo urement (mass/volume)Ordered By: Avni Cash on 12-20-2024 Calcium [Mass/Vol] 9.7 mg/dL 8.5-10.1 [facility] Serum or plasma creatinine m easurement (mass/volume)Ordered By: Avni Cash on 12-20-2024 Creatinine [Mass/Vol] 0.89 mg/dL 0.70-1.30 [facility] Comment on above: The validity of the calculated GFR & GFRAA in patients over 70 years has not been determined. Clinical correlation is essential. Serum or plasma urea nitroge n measurement (mass/volume)Ordered By: Avni Cash on 12-20-2024 Urea nitrogen [Mass/Vol] 10 mg/dL 7-[address] [facility] Sodium levelOrdered By: Avni Cash on 12-20-2024 Sodium [Moles/Vol] 135 mmol/L Low 136-145 [facility] Sodium level 135 mmol/L Low 136-[address] [facility] Specific gravity (U) [Rel de nsity]Ordered By: Avni Cash on 12-20-2024 Urine specific gravity measurement 1.010 1.002-1.[address] [facility] Squamous epithelial cells de tection in urine sediment by light microscopyOrdered By: Avni Cash on 12-20-2024 Epithelial cells.squamous LM Ql (Urine sed) 0 SEEN /hpf 0-[address] [facility] Squamous epithelial cells detection in urine sediment by light microscopy 0 SEEN /hpf [facility] Total proteinOrdered By: Geovani Cash on 12-20-2024 Protein [Mass/Vol] 7.5 g/dL 6.4-8.2 [facility] Total protein 7.5 g/dL 6.4-8.[address] [facility] Urea nitrogen [Mass/Vol]Orde red By: Avni Cash on 12-20-2024 Serum or plasma urea nitrogen measurement (mass/volume) 10 mg/dL 7-[address] [facility] Urinalysis, Completeon 12-20 CAST,HYALINE 0-5 SEEN Normal 0-[address] [facility] Comment on above: Order Comment: CLEAN CATCH Performed By: #### L 501.080 #### [facility] [address] [place], [address] RBC 0-5 SEEN Normal 0-[address] [facility] Comment on above: Order Comment: CLEAN CATCH Performed By: #### L 501.080 #### [facility] [address] [place], [address] WBC 0-5 SEEN Normal 0-[address] [facility] Comment on above: Order Comment: CLEAN CATCH Performed By: #### L 501.080 #### [facility] [address] [place], [address] YEAST 1+ /hpf Normal None Seen [facility] Comment on above: Order Comment: CLEAN CATCH Performed By: #### L 501.080 #### [facility] [address] [place], [address] BACTERIA 0 SEEN Normal None Seen [facility] Comment on above: Order Comment: CLEAN CATCH Performed By: #### L 501.080 #### [facility] [address] [place], [address] EPI,SQUAMOUS 0 SEEN Normal 0-[address] [facility] Comment on above: Order Comment: CLEAN CATCH Performed By: #### L 501.080 #### [facility] [address] [place], [address] Mucus Ql (Urine sed) 0 SEEN Normal [facility] Comment on above: Order Comment: CLEAN CATCH Performed By: #### L 501.080 #### [facility] [address] [place], [address] Urine blood detectionOrdered By: Avni Cash on 12-20-2024 Urine blood detection 10 /ul High Negative [facility] Urine clarityOrdered By: Geovani Cash on 12-20-2024 Clarity (U) Clear Clear [facility] Urine color determinationOrd ered By: Avni Cash on 12-20-2024 Color (U) Yellow Yellow [facility] Urine glucose detectionOrder ed By: Avni Cash on 12-20-2024 Glucose Ql (U) 1000 mg/dl High Normal [facility] Urine leukocyte esterase det ection by dipstickOrdered By: Avni Cash on 12-20-2024 Leukocyte esterase Test strip Ql (U) Negative Negative [facility] Urine pHOrdered By: Avni jiang on 12-20-2024 pH (U) 5.0 [pH] 5.0 - 8.[address] [facility] Urine sediment bacteria coun t by microscopy (number/high power field)Ordered By: Avni Cash on 12-20-2024 Bacteria LM.HPF (Urine sed) [#/Area] 0 /[HPF] None Seen [facility] Urine sediment yeast count b y microscopy (number/high powered field)Ordered By: Avni Cash on 12-20-2024 Yeast LM.HPF (Urine sed) [#/Area] 1 /[HPF] None Seen [facility] Urine specific gravity measu rementOrdered By: Avni Cash on 12-20-2024 Specific gravity (U) [Rel density] 1.010 1.002-1.[address] [facility] Urine total bilirubin detect ion by test stripOrdered By: Avni Cash on 12-20-2024 Urine total bilirubin detection by test strip Negative Negative [facility] Urine urobilinogen measureme ntOrdered By: Avni Cash on 12-20-2024 Urobilinogen Ql (U) Normal mg/dl Normal [facility] Urobilinogen Ql (U)Ordered B y: Avni Cash on 12-20-2024 Urine urobilinogen measurement Normal mg/dl Normal [facility] White blood cell (WBC) count Ordered By: Avni Cash on 12-20-2024 WBC (Bld) [#/Vol] 8.4 10*3/uL 4.4-11.0 [facility] White blood cell (WBC) count 8.4 K/mm3 4.4-11.[address] [facility] White blood cell countOrdere d By: Avni Cash on 12-20-2024 White blood cell count 0-5 SEEN /hpf 0-[address] [facility] White blood cell count 0-5 SEEN /hpf 0-[address] [facility] Yeast LM.HPF (Urine sed) [#/ Area]Ordered By: Avni Cash on 12-20-2024 Urine sediment yeast count by microscopy (number/high powered field) 1+ /hpf None Seen [facility] pH (U)Ordered By: Avni pena on 12-20-2024 Urine pH 5.0 5.0 - 8.[address] [facility] CNOVon 12-14-2024 CNOV Office Visit (UCWSTR ) JERALD YODER ([id number]) 1960 M Date Time Provider Department 12/14/24 9:30 AM [facility] During your visit today, we recorded the following information about you: Temperature Pulse Respiration Blood pressure 97.1 degrees 77/minute 18/minute 105/70 Weight 98.7 kg Ion Alfaro APRN.CNP 12/14/2024 9:40 AM Signed This note was created using [employer]. Subjective Jerald Yoder is a 64 [...] - CETIRIZINE 10 MG TABLET Ion Alfaro APRN.[employer] Allergies As of Date: 12/14/2024 Noted Allergy Reaction BEE STING 06/22/2011 7 - Swelling BENEDRYL (DIPHENHYDRAMINE) 06/22/2011 7 - Swelling PENICILLINS 06/22/2011 2 - Rash Date Reviewed: 12/14/2024 Reviewed by: Ion Alfaro APRN.[employer] - Fully Assessed Reason for Visit: Ear Problem [38] Cmt: Bilateral clogged x1 day Primary Visit Diagnosis:Eustachian tube dysfunction, bilateral [H69.93] Order(s):fluticasone (FLONASE ALLERGY RELIEF) 50 mcg/actuation nasal sprayUse 1 Surfside in each nostril once daily.Disp: 9.9 mLRfl: 0 cetirizine (ZYRTEC) 10 mg tabletTake 1 tablet by mouth once daily for 14 days.Disp: 14 tabletRfl: 0 Prescriptions as of 12/14/2024 - fluticasone (FLONASE ALLERGY RELIEF) 50 mcg/actuation nasal spray Use 1 Surfside in each nostril once daily. - cetirizine [...] Dx: 250.02. (more content not included)... Normal [facility] ALP [Catalytic activity/Vol] Ordered By: Barry Mathew on 12-08-2024 Serum or plasma alkaline phosphatase measurement 98 U/L 45-[address] [facility] ALT [Catalytic activity/Vol] Ordered By: Barry Mathew on 12-08-2024 Serum or plasma alanine aminotransferase (ALT) measurement 16 U/L 16-[address] [facility] Absolute lymphocyte countOrd ered By: Barry Mathew on 12-08-2024 Lymphocytes Auto (Unsp spec) [#/Vol] 1.25 10*3/uL 0.83-4.[address] [facility] Absolute neutrophil countOrd ered By: Barry Mathew on 12-08-2024 Neutrophils (Bld) [#/Vol] 4.1 10*3/uL 2.0-7.[address] [facility] Absolute neutrophil count 4.1 X10^3/uL 2.0-7.[address] [facility] Albumin [Mass/Vol]Ordered By : Barry Mathew on 12-08-2024 Serum or plasma albumin measurement (mass/volume) 3.5 g/dL 3.2-5.[address] [facility] Albumin to globulin ratioOrd ered By: Barry Mathew on 12-08-2024 Albumin/Globulin [Mass ratio] 0.9 {ratio} 0.9-2.[address] [facility] Albumin to globulin ratio 0.9 RATIO 0.9-2.[address] [facility] Automated lymphocyte count a s percentage of total leukocytesOrdered By: Barry Mathew on 12-08-2024 Lymphocytes/100 WBC Auto (Unsp spec) 20.7 % 19-[address] [facility] Bacteria LM.HPF (Urine sed) [#/Area]Ordered By: Barry Mathew on 12-08-2024 Urine sediment bacteria count by microscopy (number/high power field) 1+ /hpf None Seen [facility] Basophil percentageOrdered B y: Barry Mathew on 12-08-2024 Basophils/100 WBC (Bld) 0.7 % 0-1 [facility] Basophil percentage 0.7 % 0-1 [facility] Bilirubin Test strip Ql (U)O rdered By: Barry Ellisevan on 12-08-2024 Bilirubin Ql (U) Negative Negative [facility] Bilirubin, totalOrdered By: Barry Mathew on 12-08-2024 Bilirubin [Mass/Vol] 0.40 mg/dL 0.20-1.00 [facility] Comment on above: For patients on eltr ombopag therapy, use of Dimension Gilliam TBIL is not recommended. Bilirubin, total 0.40 mg/dL 0.20-1.[address] [facility] Blood urea nitrogen (BUN)/cr eatinine ratioOrdered By: Barry Mathew on 12-08-2024 Urea nitrogen/Creatinine [Mass ratio] 14.2 mg/mg 10- [facility] Blood urea nitrogen (BUN)/creatinine ratio 14.2 RATIO - [facility] CBC W/Diff, Automatedon Absolute Lymph 1.25 X10 3/uL Normal 0.83-4.[address] [facility] Comment on above: Performed By: #### L 500.2500, L501.4020, L100.0100 #### [facility] [address] [place], [address] Absolute Neut 4.1 X10 3/uL Normal 2.0-7.[address] [facility] Comment on above: Performed By: #### L 500.2500, L501.4020, L100.0100 #### [facility] [address] [place], [address] Basophils/100 WBC (Bld) 0.7 % Normal 0-1 [facility] Comment on above: Performed By: #### L 500.2500, L501.4020, L100.0100 #### [facility] [address] [place], [address] Eosinophils/100 WBC (Bld) 3.8 % Normal 0-[address] [facility] Comment on above: Performed By: #### L 500.2500, L501.4020, L100.0100 #### [facility] [address] [place], [address] Erythrocyte distribution width (RBC) [Ratio] 14.0 % Normal 11.6-14.[address] [facility] Comment on above: Performed By: #### L 500.2500, L501.4020, L100.0100 #### [facility] [address] [place], [address] Hematocrit (Bld) [Volume fraction] 38.6 % Low 40-[address] [facility] Comment on above: Performed By: #### L 500.2500, L501.4020, L100.0100 #### [facility] [address] [place], [address] Hemoglobin (Bld) [Mass/Vol] 13.6 g/dL Normal 13.0-16.[address] [facility] Comment on above: Performed By: #### L 500.2500, L501.4020, L100.0100 #### [facility] [address] [place], [address] IG% 0.500 Normal 0.0-0.[address] [facility] Comment on above: Result Comment: IG% - Immature Granulocytes (promyelocytes, myelocytes and metamyelocytes) > 1% indicates that a LEFT SHIFT is Present. Performed By: #### L 500.2500, L501.4020, L100.0100 #### [facility] [address] [place], [address] Lymphocytes/100 WBC (Bld) 20.7 % Normal 19-[address] [facility] Comment on above: Performed By: #### L 500.2500, L501.4020, L100.0100 #### [facility] [address] [place], [address] MCH (RBC) [Entitic mass] 28.5 pg Normal 27.0-32.[address] [facility] Comment on above: Performed By: #### L 500.2500, L501.4020, L100.0100 #### [facility] [address] [place], [address] MCHC (RBC) [Mass/Vol] 35.2 g/dL Normal 32-36 [facility] Comment on above: Performed By: #### L 500.2500, L501.4020, L100.0100 #### [facility] [address] [place], [address] MCV (RBC) [Entitic vol] 80.9 fL Normal 80-94 [facility] Comment on above: Performed By: #### L 500.2500, L501.4020, L100.0100 #### [facility] [address] [place], [address] Monocytes/100 WBC (Bld) 7.1 % Normal 0-10 [facility] Comment on above: Performed By: #### L 500.2500, L501.4020, L100.0100 #### [facility] [address] [place], [address] Neutrophils/100 WBC (Bld) 67.2 % Normal 47-[address] [facility] Comment on above: Performed By: #### L 500.2500, L501.4020, L100.0100 #### [facility] [address] [place], [address] Nucleated RBC (Bld) [#/Vol] 0 10*3/uL Normal 0-[address] [facility] Comment on above: Performed By: #### L 500.2500, L501.4020, L100.0100 #### [facility] [address] [place], [address] Platelet mean volume (Bld) [Entitic vol] 8.9 fL Normal 6.2-12.[address] [facility] Comment on above: Performed By: #### L 500.2500, L501.4020, L100.0100 #### [facility] [address] [place], [address] Platelets (Bld) [#/Vol] 226 10*3/uL Normal 150-[address] [facility] Comment on above: Performed By: #### L 500.2500, L501.4020, L100.0100 #### [facility] [address] [place], [address] RBC (Bld) [#/Vol] 4.77 10*6/uL Normal 4.6-6.2 [facility] Comment on above: Performed By: #### L 500.2500, L501.4020, L100.0100 #### [facility] [address] [place], [address] RDW SD 40.5 fl Normal 35.1-43.[address] [facility] Comment on above: Performed By: #### L 500.2500, L501.4020, L100.0100 #### [facility] [address] [place], [address] WBC (Bld) [#/Vol] 6.0 10*3/uL Normal 4.4-11.0 [facility] Comment on above: Performed By: #### L 500.2500, L501.4020, L100.0100 #### [facility] [address] [place], [address] Calcium [Mass/Vol]Ordered By : Barry Mathew on 12-08-2024 Serum or plasma calcium measurement (mass/volume) 9.0 mg/dL 8.5-10.[address] [facility] Carbon dioxide measurementOr dered By: Barry Mathew on 12-08-2024 CO2 [Moles/Vol] 30.0 mmol/L 21.0-32.[address] [facility] Carbon dioxide measurement 30.0 mmol/L 21.0-32.[address] [facility] Chloride measurementOrdered By: Barry Mathew on 12-08-2024 Chloride [Moles/Vol] 100 mmol/L 98-107 [facility] Chloride measurement 100 mmol/L 98-107 [facility] Clarity (U)Ordered By: Barry Mathew on 12-08-2024 Urine clarity Clear Clear [facility] Color (U)Ordered By: Barry gordon on 12-08-2024 Urine color determination Yellow Yellow [facility] Comprehensive Metabolic Prof ilon 12-08-2024 Albumin [Mass/Vol] 3.5 g/dL Normal 3.2-5.0 [facility] Comment on above: Performed By: #### L 500.2500, L501.4020, L100.0100 #### [facility] [address] [place], [address] Albumin/Globulin [Mass ratio] 0.9 {ratio} Normal 0.9-2.[address] [facility] Comment on above: Performed By: #### L 500.2500, L501.4020, L100.0100 #### [facility] [address] [place], [address] ALK P 98 U/L Normal 45-[address] [facility] Comment on above: Performed By: #### L 500.2500, L501.4020, L100.0100 #### [facility] [address] [place], [address] ALT [Catalytic activity/Vol] 16 U/L Normal 16-[address] [facility] Comment on above: Performed By: #### L 500.2500, L501.4020, L100.0100 #### [facility] [address] [place], [address] AST [Catalytic activity/Vol] 10 U/L Low 15-[address] [facility] Comment on above: Performed By: #### L 500.2500, L501.4020, L100.0100 #### [facility] [address] [place], [address] Bilirubin [Mass/Vol] 0.40 mg/dL Normal 0.20-1.00 [facility] Comment on above: Result Comment: For patients on eltrombopag therapy, use of Dimension Gilliam TBIL is not recommended. Performed By: #### L 500.2500, L501.4020, L100.0100 #### [facility] [address] [place], [address] BUN/CRE 14.2 RATIO Normal 10-[address] [facility] Comment on above: Performed By: #### L 500.2500, L501.4020, L100.0100 #### [facility] [address] [place], [address] CA,Total 9.0 mg/dL Normal 8.5-10.[address] [facility] Comment on above: Performed By: #### L 500.2500, L501.4020, L100.0100 #### [facility] [address] [place], [address] Chloride [Moles/Vol] 100 mmol/L Normal 98-107 [facility] Comment on above: Performed By: #### L 500.2500, L501.4020, L100.0100 #### [facility] [address] [place], [address] CO2 [Moles/Vol] 30.0 mmol/L Normal 21.0-32.[address] [facility] Comment on above: Performed By: #### L 500.2500, L501.4020, L100.0100 #### [facility] [address] [place], [address] Creatinine [Mass/Vol] 0.85 mg/dL Normal 0.70-1.30 [facility] Comment on above: Result Comment: The validity of the calculated GFR GFRAA in patients over 70 years has not been determined. Clinical correlation is essential. Performed By: #### L 500.2500, L501.4020, L100.0100 #### [facility] [address] [place], [address] ECRCL 110.65 ml/min Normal [facility] Comment on above: Performed By: #### L 500.2500, L501.4020, L100.0100 #### [facility] [address] [place], [address] EST GFR - AA 117 mL/min Normal >[address] [facility] Comment on above: Result Comment: Afri can Omani GFR Calc Performed By: #### L 500.2500, L501.4020, L100.0100 #### [facility] [address] [place], [address] GAP 6 Normal 5-[address] [facility] Comment on above: Performed By: #### L 500.2500, L501.4020, L100.0100 #### [facility] [address] [place], [address] GFR/1.73 sq M.predicted among non-blacks MDRD (S/P/Bld) [Vol rate/Area] 97 mL/min/{1.73_m2} Normal >[address] [facility] Comment on above: Result Comment: Non- GFR Calc Performed By: #### L 500.2500, L501.4020, L100.0100 #### [facility] [address] [place], [address] Globulin (S) [Mass/Vol] 3.8 g/dL Normal 2.2-4.2 [facility] Comment on above: Performed By: #### L 500.2500, L501.4020, L100.0100 #### [facility] [address] [place], [address] Glucose [Mass/Vol] 395 mg/dL High 74-106 [facility] Comment on above: Result Comment: Gluc ose result greater than or equal to 200 mg/dL suggests DIABETES MELLITUS per A.D.A. criteria. Performed By: #### L 500.2500, L501.4020, L100.0100 #### [facility] [address] [place], [address] Potassium [Moles/Vol] 3.9 mmol/L Normal 3.5-5.1 [facility] Comment on above: Performed By: #### L 500.2500, L501.4020, L100.0100 #### [facility] [address] [place], [address] Sodium [Moles/Vol] 136 mmol/L Normal 136-145 [facility] Comment on above: Performed By: #### L 500.2500, L501.4020, L100.0100 #### [facility] [address] [place], [address] T PROT 7.3 g/dL Normal 6.4-8.[address] [facility] Comment on above: Performed By: #### L 500.2500, L501.4020, L100.0100 #### [facility] [address] [place], [address] Urea nitrogen [Mass/Vol] 12 mg/dL Normal 7-[address] [facility] Comment on above: Performed By: #### L 500.2500, L501.4020, L100.0100 #### [facility] [address] [place], [address] Creatinine [Mass/Vol]Ordered By: Barry Mathew on 12-08-2024 Serum or plasma creatinine measurement (mass/volume) 0.85 mg/dL 0.70-1.[address] [facility] Emergency Department Summary on 12-08-2024 Emergency Department Summary [facility] Medical Records Department [address] [place] [address] Emergency Department Summary 12/08/24 MR#: [id number] Acct: [id number] Name: JERALD YODER Rep #: [id number] : 1960 64 From: Barry Mathew MD [...] 245. No other exacerbating or alleviating factors. [facility] Medical History Partial traumatic amputation of [...] 86 Respir (more content not included)... Normal [facility] Eosinophil percentageOrdered By: Barry aMthew on 12-08-2024 Eosinophils/100 WBC (Bld) 3.8 % 0-[address] [facility] Eosinophil percentage 3.8 % 0-5 [facility] Epithelial cells.squamous LM Ql (Urine sed)Ordered By: Barry Mathew on 12-08-2024 Squamous epithelial cells detection in urine sediment by light microscopy 0-5 SEEN /hpf 0-[address] [facility] Erythrocyte distribution wid th (RBC) [Ratio]Ordered By: Barry Mathew on 12-08-2024 Erythrocyte distribution width ratio 14.0 % 11.6-14.[address] [facility] Erythrocyte distribution width standard deviation 40.5 fl 35.1-43.[address] [facility] Erythrocyte distribution wid th ratioOrdered By: Barry Mathew on 12-08-2024 Erythrocyte distribution width (RBC) [Ratio] 14.0 % 11.6-14.[address] [facility] Erythrocyte distribution wid th standard deviationOrdered By: Barry Mathew on 12-08-2024 Erythrocyte distribution width (RBC) [Ratio] 40.5 fl 35.1-43.[address] [facility] Estimated glomerular filtrat ion rate (GFR) AmericanOrdered By: Barry Mathew on 12-08-2024 Estimated glomerular filtration rate (GFR) 117 mL/min >[address] [facility] Estimation of creatinine edinson aranceOrdered By: Barry Mathew on 12-08-2024 Estimation of creatinine clearance 110.65 ml/min [facility] Glomerular filtration rate ( GFR) estimationOrdered By: Barry Mathew on 12-08-2024 GFR/1.73 sq M.predicted among non-blacks MDRD (S/P/Bld) [Vol rate/Area] 97 mL/min/{1.73_m2} >[address] [facility] Comment on above: Non- GFR Calc Glomerular filtration rate (GFR) estimation 97 mL/min >[address] [facility] Glucose Ql (U)Ordered By: Franco Mathew on 12-08-2024 Urine glucose detection 1000 mg/dl High Normal [facility] Glucose measurementOrdered B y: Barry Mathew on 12-08-2024 Glucose [Mass/Vol] 395 mg/dL High 74-106 [facility] Comment on above: Glucose result great er than or equal to 200 mg/dLsuggests DIABETES MELLITUS per A.D.A. criteria. Glucose measurement 395 mg/dL High 74-106 [facility] Hematocrit Auto (Bld) [Volum e fraction]Ordered By: Barry Mathew on 12-08-2024 Hematocrit (Bld) [Volume fraction] 38.6 % Low 40-[address] [facility] Automated blood hematocrit (percentage) 38.6 % Low 40-[address] [facility] Hemoglobin measurementOrdere d By: Barry Mathew on 12-08-2024 Hemoglobin (Bld) [Mass/Vol] 13.6 g/dL 13.0-16.[address] [facility] Hemoglobin measurement 13.6 g/dL 13.0-16.5 [facility] Immature granulocytes/100 WB C Auto (Bld)Ordered By: Barry Mathew on 12-08-2024 Immature granulocytes/100 WBC (Bld) 0.500 % 0.0-0.[address] [facility] Comment on above: IG% - Immature Granu locytes (promyelocytes, myelocytes and metamyelocytes) > 1% indicates that a LEFT SHIFT is Present. Automated immature granulocyte percentage 0.500 % 0.0-0.[address] [facility] Influenza virus A and B and SARS-CoV-2 (COVID-19) and Respiratory syncytial virus RNAOrdered By: Barry Mathew on 12-08-2024 SARS-CoV-2 (COVID-19) RNA IOANA+probe Ql (Unsp spec) [facility] Ketones Test strip Ql (U)Ord ered By: Barry Mathew on 12-08-2024 Ketones Ql (U) Negative Negative [facility] Laboratory - Chemistry and C hemistry - challengeOrdered By: Barry Mathew on 12-08-2024 AST [Catalytic activity/Vol] 10 U/L Low 15-[address] [facility] Lymphocytes Auto (Unsp spec) [#/Vol]Ordered By: Barry Mathew on 12-08-2024 Absolute lymphocyte count 1.25 X10^3/uL 0.83-4.[address] [facility] Lymphocytes/100 WBC Auto (Un sp spec)Ordered By: Barry Mathew on 12-08-2024 Automated lymphocyte count as percentage of total leukocytes 20.7 % 19-[address] [facility] M100.678on 12-08-2024 M100.678 Pending SARS-CoV-2 (COVID 19) Negative INFLUENZA A Negative INFLUENZA B Negative RSV PCR Negative Normal [facility] Comment on above: Performed By: #### M 100.2200 #### [facility] [address] [place] [address], [address] MCV (RBC) [Entitic vol]Order ed By: Barry Mathew on 12-08-2024 MCV (mean corpuscular volume) determination 80.9 fL 80-[address] [facility] MCV (mean corpuscular volume ) determinationOrdered By: Barry Mathew on 12-08-2024 MCV (RBC) [Entitic vol] 80.9 fL 80-94 [facility] Mean corpuscular hemoglobin (MCH) determinationOrdered By: Barry Mathew on 12-08-2024 MCH (RBC) [Entitic mass] 28.5 pg 27.0-32.[address] [facility] Mean corpuscular hemoglobin (MCH) determination 28.5 pg 27.0-32.[address] [facility] Mean corpuscular hemoglobin concentration (MCHC) determinationOrdered By: Barry Mathew on 12-08-2024 MCHC (RBC) [Mass/Vol] 35.2 g/dL 32-36 [facility] Mean corpuscular hemoglobin concentration (MCHC) determination 35.2 g/dL 32-[address] [facility] Mean platelet volume determi nationOrdered By: Barry Mathew on 12-08-2024 Platelet mean volume (Bld) [Entitic vol] 8.9 fL 6.2-12.[address] [facility] Mean platelet volume determination 8.9 fl 6.2-12.[address] [facility] Microscopic analysis of urin e for red blood cells (RBC)Ordered By: Barry Mathew on 12-08-2024 Microscopic analysis of urine for red blood cells (RBC) 0 SEEN /hpf 0-[address] [facility] Monocyte percentageOrdered B y: Barry Mathew on 12-08-2024 Monocytes/100 WBC (Bld) 7.1 % 0-10 [facility] Monocyte percentage 7.1 % 0-10 [facility] Mucus LM Ql (Urine sed)Order ed By: Barry Mathew on 12-08-2024 Mucus Ql (Urine sed) 0 SEEN /hpf [facility] Neutrophil percentageOrdered By: Barry Mathew on 12-08-2024 Neutrophils/100 WBC (Bld) 67.2 % 47-[address] [facility] Neutrophil percentage 67.2 % 47-70 [facility] Nitrite Test strip Ql (U)Ord ered By: Barry Mathew on 12-08-2024 Nitrite Ql (U) Negative Negative [facility] No Panel InformationOrdered By: Barry Mathew on 12-08-2024 10 U/L Low 15-[address] [facility] Nucleated red blood cell per centageOrdered By: Barry Mathew on 12-08-2024 Nucleated RBC/100 WBC (Bld) [Ratio] 0 % 0-[address] [facility] Nucleated red blood cell percentage 0 % 0-[address] [facility] Platelet countOrdered By: Franco Mathew on 12-08-2024 Platelets (Bld) [#/Vol] 226 10*3/uL 150-[address] [facility] Platelet count 226 K/mm3 150-[address] [facility] Potassium measurementOrdered By: Barry Mathew on 12-08-2024 Potassium [Moles/Vol] 3.9 mmol/L 3.5-5.1 [facility] Potassium measurement 3.9 mmol/L 3.5-5.1 [facility] Protein Test strip Ql (U)Ord ered By: Barry Mathew on 12-08-2024 Protein Ql (U) Negative Negative [facility] RBC Auto (Bld) [#/Vol]Ordere d By: Barry Mathew on 12-08-2024 RBC (Bld) [#/Vol] 4.77 10*6/uL 4.6-6.2 [facility] Automated blood erythrocyte count 4.77 M/mm3 4.6-6.[address] [facility] Serum anion gap measurementO rdered By: Barry Mathew on 12-08-2024 Anion gap [Moles/Vol] 6 mmol/L 5-15 [facility] Serum anion gap measurement 6 5-[address] [facility] Serum globulin measurementOr dered By: Barry Mathew on 12-08-2024 Globulin (S) [Mass/Vol] 3.8 g/dL 2.2-4.2 [facility] Serum globulin measurement 3.8 g/dL 2.2-4.[address] [facility] Serum or plasma alanine wagoner otransferase (ALT) measurementOrdered By: Barry Mathew on 12-08-2024 ALT [Catalytic activity/Vol] 16 U/L 16-[address] [facility] Serum or plasma albumin yayo urement (mass/volume)Ordered By: Barry Mathew on 12-08-2024 Albumin [Mass/Vol] 3.5 g/dL 3.2-5.0 [facility] Serum or plasma alkaline andrzej sphatase measurementOrdered By: Barry Mathew on 12-08-2024 ALP [Catalytic activity/Vol] 98 U/L 45-[address] [facility] Serum or plasma calcium yayo urement (mass/volume)Ordered By: Barry Mathew on 12-08-2024 Calcium [Mass/Vol] 9.0 mg/dL 8.5-10.1 [facility] Serum or plasma creatinine m easurement (mass/volume)Ordered By: Barry Mathew on 12-08-2024 Creatinine [Mass/Vol] 0.85 mg/dL 0.70-1.30 [facility] Comment on above: The validity of the calculated GFR & GFRAA in patients over 70 years has not been determined. Clinical correlation is essential. Serum or plasma urea nitroge n measurement (mass/volume)Ordered By: Barry Mathew on 12-08-2024 Urea nitrogen [Mass/Vol] 12 mg/dL 05-[address] [facility] Sodium levelOrdered By: Barry Mathew on 12-08-2024 Sodium [Moles/Vol] 136 mmol/L 136-145 [facility] Sodium level 136 mmol/L 136-[address] [facility] Specific gravity (U) [Rel de nsity]Ordered By: Barry Mathew on 12-08-2024 Urine specific gravity measurement 1.010 1.002-1.[address] [facility] Squamous epithelial cells de tection in urine sediment by light microscopyOrdered By: Barry Mathew on 12-08-2024 Epithelial cells.squamous LM Ql (Urine sed) 0-5 SEEN /hpf 0-[address] [facility] Total proteinOrdered By: Silva Mathew on 12-08-2024 Protein [Mass/Vol] 7.3 g/dL 6.4-8.2 [facility] Total protein 7.3 g/dL 6.4-8.[address] [facility] Urea nitrogen [Mass/Vol]Orde red By: Barry Mathew on 12-08-2024 Serum or plasma urea nitrogen measurement (mass/volume) 12 mg/dL 05-[address] [facility] Urinalysis, Completeon 12-08 BACTERIA 1+ /hpf Normal None Seen [facility] Comment on above: Order Comment: NO RIVERA TO SPECIFY Performed By: #### M 100.2200 #### [facility] [address] [place], [place], [id number] EPI,SQUAMOUS 0-5 SEEN Normal 0-[address] [facility] Comment on above: Order Comment: NO NEVAREZOR TO SPECIFY Performed By: #### M 100.2200 #### [facility] [address] [place], [address] RBC 0 SEEN Normal 0-[address] [facility] Comment on above: Order Comment: NO NEVAREZOR TO SPECIFY Performed By: #### M 100.2200 #### [facility] [address] [place], [address] Mucus Ql (Urine sed) 0 SEEN Normal [facility] Comment on above: Order Comment: NO CTOR TO SPECIFY Performed By: #### M 100.2200 #### [facility] [address] [place], [address] WBC 0 SEEN Normal 0-[address] [facility] Comment on above: Order Comment: NO CTOR TO SPECIFY Performed By: #### M 100.2200 #### [facility] [address] [place], [place], [id number] Urine clarityOrdered By: Silva Mathew on 12-08-2024 Clarity (U) Clear Clear [facility] Urine color determinationOrd ered By: Barry Mathew on 12-08-2024 Color (U) Yellow Yellow [facility] Urine glucose detectionOrder ed By: Barry Mathew on 12-08-2024 Glucose Ql (U) 1000 mg/dl High Normal [facility] Urine leukocyte esterase det ection by dipstickOrdered By: Barry Mathew on 12-08-2024 Leukocyte esterase Test strip Ql (U) Negative Negative [facility] Urine pHOrdered By: Barry otoole on 12-08-2024 pH (U) 6.0 [pH] 5.0 - 8.[address] [facility] Urine sediment bacteria coun t by microscopy (number/high power field)Ordered By: Barry Mathew on 12-08-2024 Bacteria LM.HPF (Urine sed) [#/Area] 1 /[HPF] None Seen [facility] Urine specific gravity measu rementOrdered By: Barry Mathew on 12-08-2024 Specific gravity (U) [Rel density] 1.010 1.002-1.[address] [facility] Urine total bilirubin detect ion by test stripOrdered By: Barry Mathew on 12-08-2024 Urine total bilirubin detection by test strip Negative Negative [facility] Urine urobilinogen measureme ntOrdered By: Barry Mathew on 12-08-2024 Urobilinogen Ql (U) Normal mg/dl Normal [facility] Urobilinogen Ql (U)Ordered B y: Barry Mathew on 12-08-2024 Urine urobilinogen measurement Normal mg/dl Normal [facility] White blood cell (WBC) count Ordered By: Barry Mathew on 12-08-2024 WBC (Bld) [#/Vol] 6.0 10*3/uL 4.4-11.0 [facility] White blood cell (WBC) count 6.0 K/mm3 4.4-11.[address] [facility] White blood cell countOrdere d By: Barry Mathew on 12-08-2024 White blood cell count 0 SEEN /hpf 0-5 [facility] White blood cell count 0 SEEN /hpf [facility] pH (U)Ordered By: Barry garcia on 12-08-2024 Urine pH 6.0 5.0 - 8.[address] [facility] ALP [Catalytic activity/Vol] Ordered By: Pedro Krishnan on 11-27-2024 Serum or plasma alkaline phosphatase measurement 107 U/L 45-[address] [facility] ALT [Catalytic activity/Vol] Ordered By: Pedro Krishnan on 11-27-2024 Serum or plasma alanine aminotransferase (ALT) measurement 16 U/L 16-[address] [facility] Absolute lymphocyte countOrd ered By: Pedro Krishnan on 11-27-2024 Lymphocytes Auto (Unsp spec) [#/Vol] 1.51 10*3/uL 0.83-4.[address] [facility] Absolute neutrophil countOrd ered By: Pedro Krishnan on 11-27-2024 Neutrophils (Bld) [#/Vol] 6.6 10*3/uL 2.0-7.[address] [facility] Absolute neutrophil count 6.6 X10^3/uL 2.0-7.[address] [facility] Albumin [Mass/Vol]Ordered By : Pedro Krishnan on 11-27-2024 Serum or plasma albumin measurement (mass/volume) 3.6 g/dL 3.2-5.[address] [facility] Albumin to globulin ratioOrd ered By: Pedro Krishnan on 11-27-2024 Albumin/Globulin [Mass ratio] 1.0 {ratio} 0.9-2.[address] [facility] Albumin to globulin ratio 1.0 RATIO 0.9-2.[address] [facility] Automated lymphocyte count a s percentage of total leukocytesOrdered By: Pedro Krishnan on 11-27-2024 Lymphocytes/100 WBC Auto (Unsp spec) 16.8 % Low 19-[address] [facility] Bacteria LM.HPF (Urine sed) [#/Area]Ordered By: Pedro Krishnan on 11-27-2024 Urine sediment bacteria count by microscopy (number/high power field) RARE /hpf None Seen [facility] Basophil percentageOrdered B y: Pedro Krishnan on 11-27-2024 Basophils/100 WBC (Bld) 0.7 % 0-1 [facility] Basophil percentage 0.7 % 0-1 [facility] Bilirubin Test strip Ql (U)O rdered By: Pedro Krishnan on 11-27-2024 Bilirubin Ql (U) Negative Negative [facility] Bilirubin, totalOrdered By: Pedro Krishnan on 11-27-2024 Bilirubin [Mass/Vol] 0.40 mg/dL 0.20-1.00 [facility] Comment on above: For patients on eltr ombopag therapy, use of Dimension Gilliam TBIL is not recommended. Bilirubin, total 0.40 mg/dL 0.20-1.[address] [facility] Blood urea nitrogen (BUN)/cr eatinine ratioOrdered By: Pedro Krishnan on 11-27-2024 Urea nitrogen/Creatinine [Mass ratio] 12.7 mg/mg 10- [facility] Blood urea nitrogen (BUN)/creatinine ratio 12.7 RATIO 08-[address] [facility] CBC W/Diff, Automatedon 11-01 Absolute Lymph 1.51 X10 3/uL Normal 0.83-4.[address] [facility] Comment on above: Performed By: #### L 500.2500, L501.4020, L100.0100 #### [facility] [address] [place], [address] Absolute Neut 6.6 X10 3/uL Normal 2.0-7.[address] [facility] Comment on above: Performed By: #### L 500.2500, L501.4020, L100.0100 #### [facility] [address] [place], [address] Basophils/100 WBC (Bld) 0.7 % Normal 0-1 [facility] Comment on above: Performed By: #### L 500.2500, L501.4020, L100.0100 #### [facility] [address] [place], [address] Eosinophils/100 WBC (Bld) 2.8 % Normal 0-[address] [facility] Comment on above: Performed By: #### L 500.2500, L501.4020, L100.0100 #### [facility] [address] [place], [address] Erythrocyte distribution width (RBC) [Ratio] 14.2 % Normal 11.6-14.[address] [facility] Comment on above: Performed By: #### L 500.2500, L501.4020, L100.0100 #### [facility] [address] [place], [address] Hematocrit (Bld) [Volume fraction] 41.1 % Normal 40-[address] [facility] Comment on above: Performed By: #### L 500.2500, L501.4020, L100.0100 #### [facility] [address] [place], [address] Hemoglobin (Bld) [Mass/Vol] 14.2 g/dL Normal 13.0-16.[address] [facility] Comment on above: Performed By: #### L 500.2500, L501.4020, L100.0100 #### [facility] [address] [place], [address] IG% 0.300 Normal 0.0-0.[address] [facility] Comment on above: Result Comment: IG% - Immature Granulocytes (promyelocytes, myelocytes and metamyelocytes) > 1% indicates that a LEFT SHIFT is Present. Performed By: #### L 500.2500, L501.4020, L100.0100 #### [facility] [address] [place], [address] Lymphocytes/100 WBC (Bld) 16.8 % Low 19-[address] [facility] Comment on above: Performed By: #### L 500.2500, L501.4020, L100.0100 #### [facility] [address] [place], [address] MCH (RBC) [Entitic mass] 28.2 pg Normal 27.0-32.[address] [facility] Comment on above: Performed By: #### L 500.2500, L501.4020, L100.0100 #### [facility] [address] [place], [address] MCHC (RBC) [Mass/Vol] 34.5 g/dL Normal 32-36 [facility] Comment on above: Performed By: #### L 500.2500, L501.4020, L100.0100 #### [facility] [address] [place], [address] MCV (RBC) [Entitic vol] 81.7 fL Normal 80-94 [facility] Comment on above: Performed By: #### L 500.2500, L501.4020, L100.0100 #### [facility] [address] [place], [address] Monocytes/100 WBC (Bld) 5.5 % Normal 0-10 [facility] Comment on above: Performed By: #### L 500.2500, L501.4020, L100.0100 #### [facility] [address] [place], [address] Neutrophils/100 WBC (Bld) 73.9 % High 47-[address] [facility] Comment on above: Performed By: #### L 500.2500, L501.4020, L100.0100 #### [facility] [address] [place], [address] Nucleated RBC (Bld) [#/Vol] 0 10*3/uL Normal 0-[address] [facility] Comment on above: Performed By: #### L 500.2500, L501.4020, L100.0100 #### [facility] [address] [place], [address] Platelet mean volume (Bld) [Entitic vol] 9.3 fL Normal 6.2-12.[address] [facility] Comment on above: Performed By: #### L 500.2500, L501.4020, L100.0100 #### [facility] [address] [place], [address] Platelets (Bld) [#/Vol] 231 10*3/uL Normal 150-[address] [facility] Comment on above: Performed By: #### L 500.2500, L501.4020, L100.0100 #### [facility] [address] [place], [address] RBC (Bld) [#/Vol] 5.03 10*6/uL Normal 4.6-6.2 [facility] Comment on above: Performed By: #### L 500.2500, L501.4020, L100.0100 #### [facility] [address] [place], [address] RDW SD 41.3 fl Normal 35.1-43.[address] [facility] Comment on above: Performed By: #### L 500.2500, L501.4020, L100.0100 #### [facility] [address] [place], [address] WBC (Bld) [#/Vol] 9.0 10*3/uL Normal 4.4-11.0 [facility] Comment on above: Performed By: #### L 500.2500, L501.4020, L100.0100 #### [facility] [address] [place], [address] Calcium [Mass/Vol]Ordered By : Pedro Krishnan on 11-27-2024 Serum or plasma calcium measurement (mass/volume) 8.8 mg/dL 8.5-10.[address] [facility] Carbon dioxide measurementOr dered By: Pedro Krishnan on 11-27-2024 CO2 [Moles/Vol] 22.0 mmol/L 21.0-32.[address] [facility] Carbon dioxide measurement 22.0 mmol/L 21.0-32.[address] [facility] Chloride measurementOrdered By: Pedro Krishnan on 11-27-2024 Chloride [Moles/Vol] 101 mmol/L 98-107 [facility] Chloride measurement 101 mmol/L 98-107 [facility] Clarity (U)Ordered By: Pedro Krishnan on 11-27-2024 Urine clarity Clear Clear [facility] Color (U)Ordered By: Pedro persaud on 11-27-2024 Urine color determination Yellow Yellow [facility] Comprehensive Metabolic Prof ilon 11-27-2024 Albumin [Mass/Vol] 3.6 g/dL Normal 3.2-5.0 [facility] Comment on above: Performed By: #### L 500.2500, L501.4020, L100.0100 #### [facility] [address] [place], [address] Albumin/Globulin [Mass ratio] 1.0 {ratio} Normal 0.9-2.[address] [facility] Comment on above: Performed By: #### L 500.2500, L501.4020, L100.0100 #### [facility] [address] [place], [address] ALK P 107 U/L Normal 45-[address] [facility] Comment on above: Performed By: #### L 500.2500, L501.4020, L100.0100 #### [facility] [address] [place], [address] ALT [Catalytic activity/Vol] 16 U/L Normal 16-[address] [facility] Comment on above: Performed By: #### L 500.2500, L501.4020, L100.0100 #### [facility] [address] [place], [address] AST [Catalytic activity/Vol] 11 U/L Low 15-[address] [facility] Comment on above: Performed By: #### L 500.2500, L501.4020, L100.0100 #### [facility] [address] [place], [address] Bilirubin [Mass/Vol] 0.40 mg/dL Normal 0.20-1.00 [facility] Comment on above: Result Comment: For patients on eltrombopag therapy, use of Dimension Gilliam TBIL is not recommended. Performed By: #### L 500.2500, L501.4020, L100.0100 #### [facility] [address] [place], [address] BUN/CRE 12.7 RATIO Normal 10-[address] [facility] Comment on above: Performed By: #### L 500.2500, L501.4020, L100.0100 #### [facility] [address] [place], [address] CA,Total 8.8 mg/dL Normal 8.5-10.[address] [facility] Comment on above: Performed By: #### L 500.2500, L501.4020, L100.0100 #### [facility] [address] [place], [address] Chloride [Moles/Vol] 101 mmol/L Normal 98-107 [facility] Comment on above: Performed By: #### L 500.2500, L501.4020, L100.0100 #### [facility] [address] [place], [address] CO2 [Moles/Vol] 22.0 mmol/L Normal 21.0-32.[address] [facility] Comment on above: Performed By: #### L 500.2500, L501.4020, L100.0100 #### [facility] [address] [place], [address] Creatinine [Mass/Vol] 0.94 mg/dL Normal 0.70-1.30 [facility] Comment on above: Result Comment: The validity of the calculated GFR GFRAA in patients over 70 years has not been determined. Clinical correlation is essential. Performed By: #### L 500.2500, L501.4020, L100.0100 #### [facility] [address] [place], [address] EST GFR - AA 103 mL/min Normal >[address] [facility] Comment on above: Result Comment: Afri can Omani GFR Calc Performed By: #### L 500.2500, L501.4020, L100.0100 #### [facility] [address] [place], [address] GAP 10 Normal 5-[address] [facility] Comment on above: Performed By: #### L 500.2500, L501.4020, L100.0100 #### [facility] [address] [place], [address] GFR/1.73 sq M.predicted among non-blacks MDRD (S/P/Bld) [Vol rate/Area] 86 mL/min/{1.73_m2} Normal >[address] [facility] Comment on above: Result Comment: Non- GFR Calc Performed By: #### L 500.2500, L501.4020, L100.0100 #### [facility] [address] [place], [address] Globulin (S) [Mass/Vol] 3.7 g/dL Normal 2.2-4.2 [facility] Comment on above: Performed By: #### L 500.2500, L501.4020, L100.0100 #### [facility] [address] [place], [address] Glucose [Mass/Vol] 373 mg/dL High 74-106 [facility] Comment on above: Result Comment: Gluc ose result greater than or equal to 200 mg/dL suggests DIABETES MELLITUS per A.D.A. criteria. Performed By: #### L 500.2500, L501.4020, L100.0100 #### [facility] [address] [place], [address] Potassium [Moles/Vol] 3.8 mmol/L Normal 3.5-5.1 [facility] Comment on above: Performed By: #### L 500.2500, L501.4020, L100.0100 #### [facility] [address] [place], [address] Sodium [Moles/Vol] 133 mmol/L Low 136-145 [facility] Comment on above: Performed By: #### L 500.2500, L501.4020, L100.0100 #### [facility] [address] [place], [address] T PROT 7.3 g/dL Normal 6.4-8.[address] [facility] Comment on above: Performed By: #### L 500.2500, L501.4020, L100.0100 #### [facility] [address] [place], [address] Urea nitrogen [Mass/Vol] 12 mg/dL Normal 7-[address] [facility] Comment on above: Performed By: #### L 500.2500, L501.4020, L100.0100 #### [facility] [address] [place], [address] Creatinine [Mass/Vol]Ordered By: Pedro Krishnan on 11-27-2024 Serum or plasma creatinine measurement (mass/volume) 0.94 mg/dL 0.70-1.[address] [facility] Emergency Department Summary on 11-27-2024 Emergency Department Summary [facility] Medical Records Department [address] [place] [address] Emergency Department Summary 11/27/24 MR#: [id number] Acct: [id number] Name: JERALD YODER Rep #: [id number] : 1960 64 From: Pedro Krishnan DO [...] this and he has been passing gas. [facility] Medical History Partial traumatic amputation of [...] no juana (more content not included)... Normal [facility] Eosinophil percentageOrdered By: Pedro Krishnan on 11-27-2024 Eosinophils/100 WBC (Bld) 2.8 % 0-[address] [facility] Eosinophil percentage 2.8 % 0-5 [facility] Erythrocyte distribution wid th (RBC) [Ratio]Ordered By: Pedro Krishnan on 11-27-2024 Erythrocyte distribution width ratio 14.2 % 11.6-14.[address] [facility] Erythrocyte distribution width standard deviation 41.3 fl 35.1-43.[address] [facility] Erythrocyte distribution wid th ratioOrdered By: Pedro Krishnan on 11-27-2024 Erythrocyte distribution width (RBC) [Ratio] 14.2 % 11.6-14.[address] [facility] Erythrocyte distribution wid th standard deviationOrdered By: Pedro Krishnan on 11-27-2024 Erythrocyte distribution width (RBC) [Ratio] 41.3 fl 35.1-43.[address] [facility] Estimated glomerular filtrat ion rate (GFR) AmericanOrdered By: Pedro Krishnna on 11-27-2024 Estimated glomerular filtration rate (GFR) 103 mL/min >[address] [facility] Glomerular filtration rate ( GFR) estimationOrdered By: Pedro Krishnan on 11-27-2024 GFR/1.73 sq M.predicted among non-blacks MDRD (S/P/Bld) [Vol rate/Area] 86 mL/min/{1.73_m2} >[address] [facility] Comment on above: Non- GFR Calc Glomerular filtration rate (GFR) estimation 86 mL/min >[address] [facility] Glucose Ql (U)Ordered By: Bridger jacob Ariella on 11-27-2024 Urine glucose detection 1000 mg/dl High Normal [facility] Glucose measurementOrdered B y: Pedro Ariella on 11-27-2024 Glucose [Mass/Vol] 373 mg/dL High 74-106 [facility] Comment on above: Glucose result great er than or equal to 200 mg/dLsuggests DIABETES MELLITUS per A.D.A. criteria. Glucose measurement 373 mg/dL High 74-106 [facility] Hematocrit Auto (Bld) [Volum e fraction]Ordered By: Pedro Krishnan on 11-27-2024 Hematocrit (Bld) [Volume fraction] 41.1 % 40-[address] [facility] Automated blood hematocrit (percentage) 41.1 % 40-[address] [facility] Hemoglobin measurementOrdere d By: Pedro Krishnan on 11-27-2024 Hemoglobin (Bld) [Mass/Vol] 14.2 g/dL 13.0-16.[address] [facility] Hemoglobin measurement 14.2 g/dL 13.0-16.5 [facility] Immature granulocytes/100 WB C Auto (Bld)Ordered By: Pedro Krishnan on 11-27-2024 Immature granulocytes/100 WBC (Bld) 0.300 % 0.0-0.[address] [facility] Comment on above: IG% - Immature Granu locytes (promyelocytes, myelocytes and metamyelocytes) > 1% indicates that a LEFT SHIFT is Present. Automated immature granulocyte percentage 0.300 % 0.0-0.[address] [facility] Ketones Test strip Ql (U)Ord ered By: Pedro Krishnan on 11-27-2024 Ketones Ql (U) Negative Negative [facility] Laboratory - Chemistry and C hemistry - challengeOrdered By: Pedro Krishnan on 11-27-2024 AST [Catalytic activity/Vol] 11 U/L Low 15-[address] [facility] Lipaseon 11-27-2024 Lipase [Catalytic activity/Vol] 23 U/L Normal 13-[address] [facility] Comment on above: Result Comment: Oleksandr lopez note: LIPASE revised reference range effective 23. New Lipase methodology. Expected to produce lower values than the previous assay method. NEW Reference Range: 13 - 75 U/L Performed By: #### L 500.2500, L501.4020, L100.0100 #### [facility] [address] [place], [address] Lipase measurementOrdered By : Pedro Krishnan on 11-27-2024 Lipase [Catalytic activity/Vol] 23 U/L 13- [facility] Comment on above: Please note:LIPASE r evised reference range effective 23. New Lipase methodology. Expected to produce lower values than the previous assay method. NEW Reference Range: 13 - 75 U/L Lipase measurement 23 U/L 13-75 [facility] Lymphocytes Auto (Unsp spec) [#/Vol]Ordered By: Pedro Krishnan on 11-27-2024 Absolute lymphocyte count 1.51 X10^3/uL 0.83-4.[address] [facility] Lymphocytes/100 WBC Auto (Un sp spec)Ordered By: Pedro Krishnan on 11-27-2024 Automated lymphocyte count as percentage of total leukocytes 16.8 % Low 19-[address] [facility] MCV (RBC) [Entitic vol]Order ed By: Pedro Krishnan on 11-27-2024 MCV (mean corpuscular volume) determination 81.7 fL 80-[address] [facility] MCV (mean corpuscular volume ) determinationOrdered By: Pedro Krishnan on 11-27-2024 MCV (RBC) [Entitic vol] 81.7 fL 80-94 [facility] Mean corpuscular hemoglobin (MCH) determinationOrdered By: Pedro Krishnan on 11-27-2024 MCH (RBC) [Entitic mass] 28.2 pg 27.0-32.[address] [facility] Mean corpuscular hemoglobin (MCH) determination 28.2 pg 27.0-32.[address] [facility] Mean corpuscular hemoglobin concentration (MCHC) determinationOrdered By: Pedro Krishnan on 11-27-2024 MCHC (RBC) [Mass/Vol] 34.5 g/dL 32-36 [facility] Mean corpuscular hemoglobin concentration (MCHC) determination 34.5 g/dL 32-[address] [facility] Mean platelet volume determi nationOrdered By: Pedro Krishnan on 11-27-2024 Platelet mean volume (Bld) [Entitic vol] 9.3 fL 6.2-12.[address] [facility] Mean platelet volume determination 9.3 fl 6.2-12.[address] [facility] Microscopic analysis of urin e for red blood cells (RBC)Ordered By: Pedro Krishnan on 11-27-2024 Microscopic analysis of urine for red blood cells (RBC) 0-5 SEEN /hpf 0-[address] [facility] Monocyte percentageOrdered B y: Pedro Krishnan on 11-27-2024 Monocytes/100 WBC (Bld) 5.5 % 0-10 [facility] Monocyte percentage 5.5 % 0-10 [facility] Mucus LM Ql (Urine sed)Order ed By: Pedro Krishnan on 11-27-2024 Mucus Ql (Urine sed) 0 SEEN /hpf [facility] Mucus detection in urine sediment by light microscopy 0 SEEN /hpf [facility] Neutrophil percentageOrdered By: Pedro Krishnan on 11-27-2024 Neutrophils/100 WBC (Bld) 73.9 % High 47-[address] [facility] Neutrophil percentage 73.9 % High 47-70 [facility] Nitrite Test strip Ql (U)Ord ered By: Pedro Krishnan on 11-27-2024 Nitrite Ql (U) Negative Negative [facility] No Panel InformationOrdered By: Pedro Krishnan on 11-27-2024 11 U/L Low 15-[address] [facility] Nucleated red blood cell per centageOrdered By: Pedro Krishnan on 11-27-2024 Nucleated RBC/100 WBC (Bld) [Ratio] 0 % 0-[address] [facility] Nucleated red blood cell percentage 0 % 0-[address] [facility] Platelet countOrdered By: Bridger Krishnan on 11-27-2024 Platelets (Bld) [#/Vol] 231 10*3/uL 150-[address] [facility] Platelet count 231 K/mm3 150-[address] [facility] Potassium measurementOrdered By: Pedro Krishnan on 11-27-2024 Potassium [Moles/Vol] 3.8 mmol/L 3.5-5.1 [facility] Potassium measurement 3.8 mmol/L 3.5-5.1 [facility] Protein Test strip Ql (U)Ord ered By: Pedro Krishnan on 11-27-2024 Protein Ql (U) 30 mg/dl High Negative [facility] Urine protein assay by test strip, semi-quantitative 30 mg/dl High Negative [facility] RBC Auto (Bld) [#/Vol]Ordere d By: Pedro Krishnan on 11-27-2024 RBC (Bld) [#/Vol] 5.03 10*6/uL 4.6-6.2 [facility] Automated blood erythrocyte count 5.03 M/mm3 4.6-6.[address] [facility] Serum anion gap measurementO rdered By: Pedro Krishnan on 11-27-2024 Anion gap [Moles/Vol] 10 mmol/L 5-15 [facility] Serum anion gap measurement 10 5-[address] [facility] Serum globulin measurementOr dered By: Pedro Krishnan on 11-27-2024 Globulin (S) [Mass/Vol] 3.7 g/dL 2.2-4.2 [facility] Serum globulin measurement 3.7 g/dL 2.2-4.[address] [facility] Serum or plasma alanine wagoner otransferase (ALT) measurementOrdered By: Pedro Krishnan on 11-27-2024 ALT [Catalytic activity/Vol] 16 U/L 16-[address] [facility] Serum or plasma albumin yayo urement (mass/volume)Ordered By: Pedro Krishnan on 11-27-2024 Albumin [Mass/Vol] 3.6 g/dL 3.2-5.0 [facility] Serum or plasma alkaline andrzej sphatase measurementOrdered By: Pedro Krishnan on 11-27-2024 ALP [Catalytic activity/Vol] 107 U/L 45-[address] [facility] Serum or plasma calcium yayo urement (mass/volume)Ordered By: Pedro Krishnan on 11-27-2024 Calcium [Mass/Vol] 8.8 mg/dL 8.5-10.1 [facility] Serum or plasma creatinine m easurement (mass/volume)Ordered By: Pedro Krishnan on 11-27-2024 Creatinine [Mass/Vol] 0.94 mg/dL 0.70-1.30 [facility] Comment on above: The validity of the calculated GFR & GFRAA in patients over 70 years has not been determined. Clinical correlation is essential. Serum or plasma urea nitroge n measurement (mass/volume)Ordered By: Pedro Krishnan on 11-27-2024 Urea nitrogen [Mass/Vol] 12 mg/dL 05-[address] [facility] Sodium levelOrdered By: Vinicius Krishnan on 11-27-2024 Sodium [Moles/Vol] 133 mmol/L Low 136-145 [facility] Sodium level 133 mmol/L Low 136-[address] [facility] Specific gravity (U) [Rel de nsity]Ordered By: Pedro Krishnan on 11-27-2024 Urine specific gravity measurement 1.020 1.002-1.[address] [facility] Squamous epithelial cells de tection in urine sediment by light microscopyOrdered By: Pedro Krishnan on 11-27-2024 Epithelial cells.squamous LM Ql (Urine sed) 0-5 SEEN /hpf 0-[address] [facility] Total proteinOrdered By: Issac Krishnan on 11-27-2024 Protein [Mass/Vol] 7.3 g/dL 6.4-8.2 [facility] Total protein 7.3 g/dL 6.4-8.[address] [facility] Urea nitrogen [Mass/Vol]Orde red By: Pedro Krishnan on 11-27-2024 Serum or plasma urea nitrogen measurement (mass/volume) 12 mg/dL 05-[address] [facility] Urinalysis, Completeon 11-27 BACTERIA RARE Normal None Seen [facility] Comment on above: Order Comment: CLEAN CATCH Performed By: #### M 100.2199 #### [facility] [address] [place], [place], [id number] EPI,SQUAMOUS 0-5 SEEN Normal 0-[address] [facility] Comment on above: Order Comment: CLEAN CATCH Performed By: #### M 100.0 #### [facility] [address] [place], [address] RBC 0-5 SEEN Normal 0-[address] [facility] Comment on above: Order Comment: CLEAN CATCH Performed By: #### M 100.0 #### [facility] [address] [place], [address] WBC 0-5 SEEN Normal 0-[address] [facility] Comment on above: Order Comment: CLEAN CATCH Performed By: #### M 100.2200 #### [facility] [address] [place], [address] YEAST 1+ /hpf Normal None Seen [facility] Comment on above: Order Comment: CLEAN CATCH Performed By: #### M 100.2200 #### [facility] [address] [place], [address] Mucus Ql (Urine sed) 0 SEEN Normal [facility] Comment on above: Order Comment: CLEAN CATCH Performed By: #### M 100.2200 #### [facility] [address] [place], [address] Urine blood detectionOrdered By: Pedro Krishnan on 11-27-2024 Urine blood detection 10 /ul High Negative [facility] Urine clarityOrdered By: Issac Krishnan on 11-27-2024 Clarity (U) Clear Clear [facility] Urine color determinationOrd ered By: Pedro Krishnan on 11-27-2024 Color (U) Yellow Yellow [facility] Urine glucose detectionOrder ed By: Pedro Krishnan on 11-27-2024 Glucose Ql (U) 1000 mg/dl High Normal [facility] Urine leukocyte esterase det ection by dipstickOrdered By: Pedro Krishnan on 11-27-2024 Leukocyte esterase Test strip Ql (U) Negative Negative [facility] Urine pHOrdered By: Pedro wynne on 11-27-2024 pH (U) 6.0 [pH] 5.0 - 8.[address] [facility] Urine sediment bacteria coun t by microscopy (number/high power field)Ordered By: Pedro Krishnan on 11-27-2024 Bacteria LM.HPF (Urine sed) [#/Area] RARE /hpf None Seen [facility] Urine sediment yeast count b y microscopy (number/high powered field)Ordered By: Pedro Krishnan on 11-27-2024 Yeast LM.HPF (Urine sed) [#/Area] 1 /[HPF] None Seen [facility] Urine specific gravity measu rementOrdered By: Pedro Krishnan on 11-27-2024 Specific gravity (U) [Rel density] 1.020 1.002-1.[address] [facility] Urine total bilirubin detect ion by test stripOrdered By: ePdro Krishnan on 11-27-2024 Urine total bilirubin detection by test strip Negative Negative [facility] Urine urobilinogen measureme ntOrdered By: Pedro Krishnan on 11-27-2024 Urobilinogen Ql (U) Normal mg/dl Normal [facility] Urobilinogen Ql (U)Ordered B y: Pedro Krishnan on 11-27-2024 Urine urobilinogen measurement Normal mg/dl Normal [facility] White blood cell (WBC) count Ordered By: Pedro Krishnan on 11-27-2024 WBC (Bld) [#/Vol] 9.0 10*3/uL 4.4-11.0 [facility] White blood cell (WBC) count 9.0 K/mm3 4.4-11.[address] [facility] White blood cell countOrdere d By: Pedro Krishnan on 11-27-2024 White blood cell count 0-5 SEEN /hpf 0-[address] [facility] White blood cell count 0-5 SEEN /hpf 0-[address] [facility] Yeast LM.HPF (Urine sed) [#/ Area]Ordered By: Pedro Krishnan on 11-27-2024 Urine sediment yeast count by microscopy (number/high powered field) 1+ /hpf None Seen [facility] pH (U)Ordered By: Pedro perez on 11-27-2024 Urine pH 6.0 5.0 - 8.[address] [facility] Absolute neutrophil countOrd ered By: Johann Lemons on 10-30-2024 Absolute neutrophil count 4.5 X10^3/uL 2.0-7.[address] [facility] Basic Metabolic Profile (BMP )on 10-30-2024 BUN/CRE 21.2 RATIO High 10-[address] [facility] Comment on above: Performed By: #### L 501.080 #### [facility] Laboratory [facility] [place] [address], [address] CA,Total 9.0 mg/dL Normal 8.5-10.[address] [facility] Comment on above: Performed By: #### L 501.080 #### [facility] [address] [place], [address] Chloride [Moles/Vol] 101 mmol/L Normal 98-107 [facility] Comment on above: Performed By: #### L 501.080 #### [facility] [address] [place], [address] CO2 [Moles/Vol] 29.0 mmol/L Normal 21.0-32.[address] [facility] Comment on above: Performed By: #### L 501.080 #### [facility] [address] [place], [address] Creatinine [Mass/Vol] 0.90 mg/dL Normal 0.70-1.30 [facility] Comment on above: Result Comment: The validity of the calculated GFR GFRAA in patients over 70 years has not been determined. Clinical correlation is essential. Performed By: #### L 501.080 #### [facility] [address] [place], [address] EST GFR - AA 110 mL/min Normal >[address] [facility] Comment on above: Result Comment: Afri can Omani GFR Calc Performed By: #### L 501.080 #### [facility] [address] [place], [address] GAP 7 Normal 5-[address] [facility] Comment on above: Performed By: #### L 501.080 #### [facility] [address] [place], [address] GFR/1.73 sq M.predicted among non-blacks MDRD (S/P/Bld) [Vol rate/Area] 91 mL/min/{1.73_m2} Normal >[address] [facility] Comment on above: Result Comment: Non- GFR Calc Performed By: #### L 501.080 #### [facility] [address] [place], [address] Glucose [Mass/Vol] 361 mg/dL High 74-106 [facility] Comment on above: Result Comment: Gluc ose result greater than or equal to 200 mg/dL suggests DIABETES MELLITUS per A.D.A. criteria. Performed By: #### L 501.080 #### [facility] [address] [place], [address] Potassium [Moles/Vol] 3.8 mmol/L Normal 3.5-5.1 [facility] Comment on above: Performed By: #### L 501.080 #### [facility] [address] [place], [address] Sodium [Moles/Vol] 136 mmol/L Normal 136-145 [facility] Comment on above: Performed By: #### L 501.080 #### [facility] [address] [place], [address] Urea nitrogen [Mass/Vol] 19 mg/dL High 7-[address] [facility] Comment on above: Performed By: #### L 501.080 #### [facility] [address] [place], [address] Basophil percentageOrdered B y: Johann Lemons on 10-30-2024 Basophil percentage 0.4 % 0-1 [facility] Blood urea nitrogen (BUN)/cr eatinine ratioOrdered By: Johann Lemons on 10-30-2024 Blood urea nitrogen (BUN)/creatinine ratio 21.2 RATIO High 10-[address] [facility] CBC W/Diff, Automatedon 12-3 Absolute Lymph 1.53 X10 3/uL Normal 0.83-4.[address] [facility] Comment on above: Performed By: #### L 500.2500, L501.4020, L100.0100 #### [facility] [address] [place], [address] Absolute Neut 4.5 X10 3/uL Normal 2.0-7.[address] [facility] Comment on above: Performed By: #### L 500.2500, L501.4020, L100.0100 #### [facility] [address] [place], [address] Basophils/100 WBC (Bld) 0.4 % Normal 0-1 [facility] Comment on above: Performed By: #### L 500.2500, L501.4020, L100.0100 #### [facility] [address] [place], [address] Eosinophils/100 WBC (Bld) 3.5 % Normal 0-[address] [facility] Comment on above: Performed By: #### L 500.2500, L501.4020, L100.0100 #### [facility] [address] [place], [address] Erythrocyte distribution width (RBC) [Ratio] 13.2 % Normal 11.6-14.[address] [facility] Comment on above: Performed By: #### L 500.2500, L501.4020, L100.0100 #### [facility] [address] [place], [address] Hematocrit (Bld) [Volume fraction] 39.5 % Low 40-[address] [facility] Comment on above: Performed By: #### L 500.2500, L501.4020, L100.0100 #### [facility] [address] [place], [address] Hemoglobin (Bld) [Mass/Vol] 14.2 g/dL Normal 13.0-16.[address] [facility] Comment on above: Performed By: #### L 500.2500, L501.4020, L100.0100 #### [facility] [address] [place], [address] IG% 0.600 Normal 0.0-0.[address] [facility] Comment on above: Result Comment: IG% - Immature Granulocytes (promyelocytes, myelocytes and metamyelocytes) > 1% indicates that a LEFT SHIFT is Present. Performed By: #### L 500.2500, L501.4020, L100.0100 #### [facility] [address] [place], [address] Lymphocytes/100 WBC (Bld) 22.4 % Normal 19-[address] [facility] Comment on above: Performed By: #### L 500.2500, L501.4020, L100.0100 #### [facility] [address] [place], [address] MCH (RBC) [Entitic mass] 29.0 pg Normal 27.0-32.[address] [facility] Comment on above: Performed By: #### L 500.2500, L501.4020, L100.0100 #### [facility] [address] [place], [address] MCHC (RBC) [Mass/Vol] 35.9 g/dL Normal 32-36 [facility] Comment on above: Performed By: #### L 500.2500, L501.4020, L100.0100 #### [facility] [address] [place], [address] MCV (RBC) [Entitic vol] 80.6 fL Normal 80-94 [facility] Comment on above: Performed By: #### L 500.2500, L501.4020, L100.0100 #### [facility] [address] [place], [address] Monocytes/100 WBC (Bld) 7.2 % Normal 0-10 [facility] Comment on above: Performed By: #### L 500.2500, L501.4020, L100.0100 #### [facility] [address] [place], [address] Neutrophils/100 WBC (Bld) 65.9 % Normal 47-[address] [facility] Comment on above: Performed By: #### L 500.2500, L501.4020, L100.0100 #### [facility] [address] [place], [address] Nucleated RBC (Bld) [#/Vol] 0 10*3/uL Normal 0-[address] [facility] Comment on above: Performed By: #### L 500.2500, L501.4020, L100.0100 #### [facility] [address] [place], [address] Platelet mean volume (Bld) [Entitic vol] 9.1 fL Normal 6.2-12.[address] [facility] Comment on above: Performed By: #### L 500.2500, L501.4020, L100.0100 #### [facility] [address] [place], [address] Platelets (Bld) [#/Vol] 158 10*3/uL Normal 150-[address] [facility] Comment on above: Performed By: #### L 500.2500, L501.4020, L100.0100 #### [facility] [address] [place], [address] RBC (Bld) [#/Vol] 4.90 10*6/uL Normal 4.6-6.2 [facility] Comment on above: Performed By: #### L 500.2500, L501.4020, L100.0100 #### [facility] [address] [place], [address] RDW SD 38.2 fl Normal 35.1-43.[address] [facility] Comment on above: Performed By: #### L 500.2500, L501.4020, L100.0100 #### [facility] [address] [place], [address] WBC (Bld) [#/Vol] 6.8 10*3/uL Normal 4.4-11.0 [facility] Comment on above: Performed By: #### L 500.2500, L501.4020, L100.0100 #### [facility] [address] [place], [place], [id number] Calcium [Mass/Vol]Ordered By : Johann Lemons on 10-30-2024 Serum or plasma calcium measurement (mass/volume) 9.0 mg/dL 8.5-10.[address] [facility] Carbon dioxide measurementOr dered By: Johann Lemons on 10-30-2024 Carbon dioxide measurement 29.0 mmol/L 21.0-32.[address] [facility] Chloride measurementOrdered By: Johann Lemons on 10-30-2024 Chloride measurement 101 mmol/L 98-107 [facility] Clarity (U)Ordered By: Roland Lemons on 10-30-2024 Urine clarity Clear Clear [facility] Color (U)Ordered By: Johann Lemons on 10-30-2024 Urine color determination Yellow Yellow [facility] Creatinine [Mass/Vol]Ordered By: Johann Lemons on 10-30-2024 Serum or plasma creatinine measurement (mass/volume) 0.90 mg/dL 0.70-1.[address] [facility] Emergency Department Summary on 10-30-2024 Emergency Department Summary [facility] Medical Records Department [address] [place] [address] Emergency Department Summary 10/30/24 MR#: [id number] Acct: [id number] Name: JERALD YODER Rep #: [id number] : 1960 64 From: Johann Lemons DO [...] called EMS was brought in for evaluation [facility] Medical History Partial traumatic amputation of [...] [employer] (more content not included)... Normal [facility] Eosinophil percentageOrdered By: Johann Lemons on 10-30-2024 Eosinophil percentage 3.5 % 0-5 [facility] Erythrocyte distribution wid th (RBC) [Ratio]Ordered By: Johann Lemons on 10-30-2024 Erythrocyte distribution width ratio 13.2 % 11.6-14.[address] [facility] Erythrocyte distribution width standard deviation 38.2 fl 35.1-43.[address] [facility] Estimated glomerular filtrat ion rate (GFR) AmericanOrdered By: Johann Lemons on 10-30-2024 Estimated glomerular filtration rate (GFR) 110 mL/min >[address] [facility] Glomerular filtration rate ( GFR) estimationOrdered By: Johann Lemons on 10-30-2024 Glomerular filtration rate (GFR) estimation 91 mL/min >[address] [facility] Glucose Ql (U)Ordered By: Julia Lemons on 10-30-2024 Urine glucose detection 1000 mg/dl High Normal [facility] Glucose measurementOrdered B y: Johann Lemons on 10-30-2024 Glucose measurement 361 mg/dL High 74-106 [facility] Hematocrit Auto (Bld) [Volum e fraction]Ordered By: Johann Lemons on 10-30-2024 Automated blood hematocrit (percentage) 39.5 % Low 40-[address] [facility] Hemoglobin measurementOrdere d By: Johann Lemons on 10-30-2024 Hemoglobin measurement 14.2 g/dL 13.0-16.5 [facility] Immature granulocytes/100 WB C Auto (Bld)Ordered By: Johann Lemons on 10-30-2024 Automated immature granulocyte percentage 0.600 % 0.0-0.[address] [facility] Ketones Test strip Ql (U)Ord ered By: Johann Lemons on 10-30-2024 Urine ketones detection by test strip 5 mg/dl High Negative [facility] Lymphocytes Auto (Unsp spec) [#/Vol]Ordered By: Johann Lemons on 10-30-2024 Absolute lymphocyte count 1.53 X10^3/uL 0.83-4.[address] [facility] Lymphocytes/100 WBC Auto (Un sp spec)Ordered By: Johann Lemons on 10-30-2024 Automated lymphocyte count as percentage of total leukocytes 22.4 % 19-[address] [facility] M100.678on 10-30-2024 M100.678 Pending SARS-CoV-2 (COVID 19) Negative INFLUENZA A Negative INFLUENZA B Negative RSV PCR Negative Normal [facility] Comment on above: Performed By: #### L 500.2500, L501.4020, L100.0100 #### [facility] [address] [place], [address] MCV (RBC) [Entitic vol]Order ed By: Johann Lemons on 10-30-2024 MCV (mean corpuscular volume) determination 80.6 fL 80-[address] [facility] Magnesiumon 10-30-2024 Magnesium [Mass/Vol] 1.5 mg/dL Low 1.6-2.6 [facility] Comment on above: Performed By: #### L 501.080 #### [facility] [address] [place], [place], [id number] Magnesium measurementOrdered By: Johann Lemons on 10-30-2024 Magnesium measurement 1.5 mg/dL Low 1.6-2.6 [facility] Mean corpuscular hemoglobin (MCH) determinationOrdered By: Johann Lemons on 10-30-2024 Mean corpuscular hemoglobin (MCH) determination 29.0 pg 27.0-32.[address] [facility] Mean corpuscular hemoglobin concentration (MCHC) determinationOrdered By: Johann Lemons on 10-30-2024 Mean corpuscular hemoglobin concentration (MCHC) determination 35.9 g/dL 32-[address] [facility] Mean platelet volume determi nationOrdered By: Johann Lemons on 10-30-2024 Mean platelet volume determination 9.1 fl 6.2-12.[address] [facility] Monocyte percentageOrdered B y: Johann Lemons on 10-30-2024 Monocyte percentage 7.2 % 0-10 [facility] Neutrophil percentageOrdered By: Johann Lemons on 10-30-2024 Neutrophil percentage 65.9 % 47-70 [facility] Nucleated red blood cell per centageOrdered By: Johann Lemons on 10-30-2024 Nucleated red blood cell percentage 0 % 0-[address] [facility] Platelet countOrdered By: Julia Lemons on 10-30-2024 Platelet count 158 K/mm3 150-[address] [facility] Potassium measurementOrdered By: Johann Lemons on 10-30-2024 Potassium measurement 3.8 mmol/L 3.5-5.1 [facility] Protein Test strip Ql (U)Ord ered By: Johann Lemons on 10-30-2024 Urine protein assay by test strip, semi-quantitative 15 mg/dl High Negative [facility] RBC Auto (Bld) [#/Vol]Ordere d By: Johann Lemons on 10-30-2024 Automated blood erythrocyte count 4.90 M/mm3 4.6-6.[address] [facility] Serum anion gap measurementO rdered By: Johann Lemons on 10-30-2024 Serum anion gap measurement 7 5-[address] [facility] Sodium levelOrdered By: Keith Lemons on 10-30-2024 Sodium level 136 mmol/L 136-[address] [facility] Specific gravity (U) [Rel de nsity]Ordered By: Johann Lemons on 10-30-2024 Urine specific gravity measurement 1.015 1.002-1.[address] [facility] Urea nitrogen [Mass/Vol]Orde red By: Johann Lemons on 10-30-2024 Serum or plasma urea nitrogen measurement (mass/volume) 19 mg/dL High 7-[address] [facility] Urinalysis, Completeon 10-30 BACTERIA 0 SEEN Normal None Seen [facility] Comment on above: Order Comment: 'TROP ' Serial specimen #1, #2 or #3: 1 Performed By: #### L 500.2500, L501.4020, L100.0100 #### [facility] [address] [place], [address] EPI,SQUAMOUS 0 SEEN Normal 0-[address] [facility] Comment on above: Order Comment: 'TROP ' Serial specimen #1, #2 or #3: 1 Performed By: #### L 500.2500, L501.4020, L100.0100 #### [facility] [address] [place], [address] Mucus Ql (Urine sed) 0 SEEN Normal [facility] Comment on above: Order Comment: 'TROP ' Serial specimen #1, #2 or #3: 1 Performed By: #### L 500.2500, L501.4020, L100.0100 #### [facility] [address] [place], [address] RBC 0 SEEN Normal 0-[address] [facility] Comment on above: Order Comment: 'TROP ' Serial specimen #1, #2 or #3: 1 Performed By: #### L 500.2500, L501.4020, L100.0100 #### [facility] [address] [place], [address] WBC 0 SEEN Normal 0-[address] [facility] Comment on above: Order Comment: 'TROP ' Serial specimen #1, #2 or #3: 1 Performed By: #### L 500.2500, L501.4020, L100.0100 #### [facility] [address] [place], [address] Urine total bilirubin detect ion by test stripOrdered By: Johann Lemons on 10-30-2024 Urine total bilirubin detection by test strip Negative Negative [facility] Urobilinogen Ql (U)Ordered B y: Johann Lemons on 10-30-2024 Urine urobilinogen measurement Normal mg/dl Normal [facility] White blood cell (WBC) count Ordered By: Johann Lemons on 10-30-2024 White blood cell (WBC) count 6.8 K/mm3 4.4-11.[address] [facility] White blood cell countOrdere d By: Johann Lemons on 10-30-2024 White blood cell count 0 SEEN /hpf [facility] pH (U)Ordered By: Wilmer on 10-30-2024 Urine pH 6.0 5.0 - 8.[address] [facility] Chest 1 View (Portable)on Chest 1 View (Portable) [facility] Imaging Services [address] [place] [address] Chest 1 View (Portable) MR#: [id number] Acct: [id number] Name: JERALD YODER Rep #: [id number] : 1960 M 64 From: Dina Christina PCP: Dr. Linden Chavez DO Status: REG ER Study: Chest 1 View (Portable) Date of Exam: 10/29/24 Exam# [id number] Ordering Dr: [place] [id number] INDICATION: weakness EXAMINATION/TECHNIQUE: X-RAY - XR Chest [...] 1:07 EST Reading Location ID and State: [facility] / [place] Tel , Service support , CC: Dr. 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 12 Lead EKGon 10-19-2024 12 Lead EKG [facility] Cardiovascular Services [address] [place] [address] 12 Lead EKG 10/19/24 0422 MR#: [id number] Acct: [id number] Name: JERALD YODER Rep #: [id number] : 1960 64 From: Cesar Mccoy MD [...] ECG Confirmed by TESSA TRACY, CESAR ([id number]), videotape editor CARLA HERNANDEZ ([id number]) on 10/19/2024 8:17:03 AM Referred By: Confirmed By: CESAR MCCOY MD 10/19/24816 Date Cesar Mccoy MD CC: Dr. Live Ashley MD; Dr. Linden Chavez DO Signed Normal [facility] Absolute neutrophil countOrd ered By: Live Ashley on 10-19-2024 Absolute neutrophil count 4.7 X10^3/uL 2.0-7.[address] [facility] Basic Metabolic Profile (BMP )on 10-19-2024 BUN/CRE 14.7 RATIO Normal 08-[address] [facility] Comment on above: Order Comment: 'TROP ' Serial specimen #1, #2 or #3: 1 Performed By: #### L 500.2500, L501.4020, L100.0100 #### [facility] [address] [place], [address] CA,Total 8.8 mg/dL Normal 8.5-10.[address] [facility] Comment on above: Order Comment: 'TROP ' Serial specimen #1, #2 or #3: 1 Performed By: #### L 500.2500, L501.4020, L100.0100 #### [facility] [address] [place], [address] Chloride [Moles/Vol] 99 mmol/L Normal 98-107 [facility] Comment on above: Order Comment: 'TROP ' Serial specimen #1, #2 or #3: 1 Performed By: #### L 500.2500, L501.4020, L100.0100 #### [facility] [address] [place], [address] CO2 [Moles/Vol] 26.0 mmol/L Normal 21.0-32.[address] [facility] Comment on above: Order Comment: 'TROP ' Serial specimen #1, #2 or #3: 1 Performed By: #### L 500.2500, L501.4020, L100.0100 #### [facility] [address] [place], [address] Creatinine [Mass/Vol] 1.02 mg/dL Normal 0.70-1.30 [facility] Comment on above: Order Comment: 'TROP ' Serial specimen #1, #2 or #3: 1 Result Comment: The validity of the calculated GFR GFRAA in patients over 70 years has not been determined. Clinical correlation is essential. Performed By: #### L 500.2500, L501.4020, L100.0100 #### [facility] [address] [place], [address] ECRCL 92.21 ml/min Normal [facility] Comment on above: Order Comment: 'TROP ' Serial specimen #1, #2 or #3: 1 Performed By: #### L 500.2500, L501.4020, L100.0100 #### [facility] [address] [place], [address] EST GFR - AA 94 mL/min Normal >[address] [facility] Comment on above: Order Comment: 'TROP ' Serial specimen #1, #2 or #3: 1 Result Comment: Afri can Omani GFR Calc Performed By: #### L 500.2500, L501.4020, L100.0100 #### [facility] [address] [place], [address] GAP 5 Normal 5-[address] [facility] Comment on above: Order Comment: 'TROP ' Serial specimen #1, #2 or #3: 1 Performed By: #### L 500.2500, L501.4020, L100.0100 #### [facility] [address] [place], [address] GFR/1.73 sq M.predicted among non-blacks MDRD (S/P/Bld) [Vol rate/Area] 78 mL/min/{1.73_m2} Normal >[address] [facility] Comment on above: Order Comment: 'TROP ' Serial specimen #1, #2 or #3: 1 Result Comment: Non- GFR Calc Performed By: #### L 500.2500, L501.4020, L100.0100 #### [facility] [address] [place], [address] Glucose [Mass/Vol] 494 mg/dL Invalid Interpretation Code 74-[address] [facility] Comment on above: Order Comment: 'TROP ' Serial specimen #1, #2 or #3: 1 Result Comment: Crit ical Result(s) Called at: 04:42:01 10/19/2024 by: Carla Montgomery LSparr. Results read back by same. Glucose result greater than or equal to 200 mg/dL suggests DIABETES MELLITUS per A.D.A. criteria. Performed By: #### L 500.2500, L501.4020, L100.0100 #### [facility] [address] [place], [address] Potassium [Moles/Vol] 3.7 mmol/L Normal 3.5-5.1 [facility] Comment on above: Order Comment: 'TROP ' Serial specimen #1, #2 or #3: 1 Performed By: #### L 500.2500, L501.4020, L100.0100 #### [facility] [address] [place], [address] Sodium [Moles/Vol] 130 mmol/L Low 136-145 [facility] Comment on above: Order Comment: 'TROP ' Serial specimen #1, #2 or #3: 1 Performed By: #### L 500.2500, L501.4020, L100.0100 #### [facility] [address] [place], [address] Urea nitrogen [Mass/Vol] 15 mg/dL Normal 7-[address] [facility] Comment on above: Order Comment: 'TROP ' Serial specimen #1, #2 or #3: 1 Performed By: #### L 500.2500, L501.4020, L100.0100 #### [facility] [address] [place], [address] Basophil percentageOrdered B y: Live Gabi on 10-19-2024 Basophil percentage 1.0 % 0-1 [facility] Bedside Glucoseon 10-19-2024 FINGERSTICK GLU 263 mg/dL High [address] [facility] Comment on above: Result Comment: TAYLOR GEMENT OF PATIENT CARE PER NURSING PROTOCOL Performed By: #### L 501.080 #### [facility] [address] [place], [address] FINGERSTICK GLU 353 mg/dL High 74-[address] [facility] Comment on above: Result Comment: TAYLOR GEMENT OF PATIENT CARE PER NURSING PROTOCOL Performed By: #### L 501.080 #### [facility] [address] [place], [address] FINGERSTICK GLU > 500 Invalid Interpretation Code 74-[address] [facility] Comment on above: Result Comment: TAYLOR GEMENT OF PATIENT CARE PER NURSING PROTOCOL Performed By: #### M 100.2200 #### [facility] [address] [place], [address] Blood urea nitrogen (BUN)/cr eatinine ratioOrdered By: Live Ashley on 10-19-2024 Blood urea nitrogen (BUN)/creatinine ratio 14.7 RATIO 08-[address] [facility] CBC W/Diff, Automatedon 10-01 PLT EST ADEQUATE Normal ADEQ [facility] Comment on above: Performed By: #### L 500.2500, L501.4020, L100.0100 #### [facility] [address] [place], [address] RED CELL MORPH NORM C+C Normal NORM C C [facility] Comment on above: Performed By: #### L 500.2500, L501.4020, L100.0100 #### [facility] [address] [place], [address] SMEAR COMMENT SCANNED Normal [facility] Comment on above: Performed By: #### L 500.2500, L501.4020, L100.0100 #### [facility] [address] [place], [address] Calcium [Mass/Vol]Ordered By : Live Ashley on 10-19-2024 Serum or plasma calcium measurement (mass/volume) 8.8 mg/dL 8.5-10.[address] [facility] Carbon dioxide measurementOr dered By: Live Ashley on 10-19-2024 Carbon dioxide measurement 26.0 mmol/L 21.0-32.[address] [facility] Chest PA and Lateralon 10-19 Chest PA and Lateral [facility] Imaging Services [address] [place] [address] Chest PA and Lateral MR#: [id number] Acct: [id number] Name: JERALD YODER Rep #: [id number] : 1960 M 64 From: Johann Aldrich MD PCP: Dr. Linden Chavez, DO Status: REG ER Study: Chest PA and Lateral Date of Exam: 10/19/24 Exam# [id number] Ordering Dr: [place] [id number] EXAM: XR CHEST, 2 VIEWS CLINICAL INDICATION: [...] Live Ashley MD; Dr. 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 Chloride measurementOrdered By: Live Ashley on 10-19-2024 Chloride measurement 99 mmol/L 98-107 [facility] Clarity (U)Ordered By: Melissa Ashley on 10-19-2024 Urine clarity Clear Clear [facility] Color (U)Ordered By: Live Ashley on 10-19-2024 Urine color determination Yellow Yellow [facility] Creatinine [Mass/Vol]Ordered By: Live Ashley on 10-19-2024 Serum or plasma creatinine measurement (mass/volume) 1.02 mg/dL 0.70-1.[address] [facility] Emergency Department Summary on 10-19-2024 Emergency Department Summary [facility] Medical Records Department [address] [place] [address] Emergency Department Summary 10/19/24 MR#: [id number] Acct: [id number] Name: JERALD YODER Rep #: [id number] : 1960 64 From: Live Ashley MD [...] that lasted, he states about an hour. [facility] Medical History Partial traumatic amputation of [...] 104 P (more content not included)... Normal [facility] Eosinophil percentageOrdered By: Live Ashley on 10-19-2024 Eosinophil percentage 3.0 % 0-5 [facility] Epithelial cells.squamous LM Ql (Urine sed)Ordered By: Live Ashley on 10-19-2024 Squamous epithelial cells detection in urine sediment by light microscopy 0-5 SEEN /hpf 0-[address] [facility] Erythrocyte distribution wid th (RBC) [Ratio]Ordered By: Live Ashley on 10-19-2024 Erythrocyte distribution width ratio 13.2 % 11.6-14.[address] [facility] Erythrocyte distribution width standard deviation 38.4 fl 35.1-43.[address] [facility] Estimated glomerular filtrat ion rate (GFR) AmericanOrdered By: Live Ashley on 10-19-2024 Estimated glomerular filtration rate (GFR) 94 mL/min >[address] [facility] Estimation of creatinine edinson aranceOrdered By: Live Ashley on 10-19-2024 Estimation of creatinine clearance 92.21 ml/min [facility] Glomerular filtration rate ( GFR) estimationOrdered By: Live Ashley on 10-19-2024 Glomerular filtration rate (GFR) estimation 78 mL/min >[address] [facility] Glucose Ql (U)Ordered By: Dipak Ashley on 10-19-2024 Urine glucose detection 1000 mg/dl High Normal [facility] Glucose measurementOrdered B y: Live Ashley on 10-19-2024 Glucose measurement 494 mg/dL High 74-106 [facility] Glucose measurement at bedsi deOrdered By: Live Ashley on 10-19-2024 Glucose measurement at bedside 263 mg/dL High 74-[address] [facility] Hematocrit Auto (Bld) [Volum e fraction]Ordered By: Live Ashley on 10-19-2024 Automated blood hematocrit (percentage) 43.9 % 40-[address] [facility] Hemoglobin measurementOrdere d By: Live Ashley on 10-19-2024 Hemoglobin measurement 15.6 g/dL 13.0-16.5 [facility] Immature granulocytes/100 WB C Auto (Bld)Ordered By: Live Ashley on 10-19-2024 Automated immature granulocyte percentage 0.300 % 0.0-0.[address] [facility] L501.4020on 10-19-2024 TROPONIN-I HS < 3 Low 3.0-78.[address] [facility] Comment on above: Order Comment: 'TROP ' Serial specimen #1, #2 or #3: 1 Result Comment: Plea se Note: New Test Units and Gender Specific Reference Ranges. For more information see Policy Stat Procedure Gilliam High Sensitivity Troponin (TNIH) and attachments. Performed By: #### L 500.2500, L501.4020, L100.0100 #### [facility] [place], [address] Lymphocytes Auto (Unsp spec) [#/Vol]Ordered By: Live Ashley on 10-19-2024 Absolute lymphocyte count 2.40 X10^3/uL 0.83-4.[address] [facility] Lymphocytes/100 WBC Auto (Un sp spec)Ordered By: Live Ashley on 10-19-2024 Automated lymphocyte count as percentage of total leukocytes 30.0 % 19-[address] [facility] MCV (RBC) [Entitic vol]Order ed By: Live Ashley on 10-19-2024 MCV (mean corpuscular volume) determination 80.0 fL 80-[address] [facility] Manual differential comment Robert (Bld) [Interp]Ordered By: Live Ashley on 10-19-2024 Blood manual differential comment interpretation (narrative result) SCANNED [facility] Mean corpuscular hemoglobin (MCH) determinationOrdered By: Live Ashley on 10-19-2024 Mean corpuscular hemoglobin (MCH) determination 28.4 pg 27.0-32.[address] [facility] Mean corpuscular hemoglobin concentration (MCHC) determinationOrdered By: Live Ashley on 10-19-2024 Mean corpuscular hemoglobin concentration (MCHC) determination 35.5 g/dL 32-[address] [facility] Mean platelet volume determi nationOrdered By: Live Ashley on 10-19-2024 Mean platelet volume determination 10.0 fl 6.2-12.[address] [facility] Monocyte percentageOrdered B y: Live Ashley on 10-19-2024 Monocyte percentage 6.6 % 0-10 [facility] Neutrophil percentageOrdered By: Live Ashely on 10-19-2024 Neutrophil percentage 59.1 % 47-70 [facility] Nucleated red blood cell per centageOrdered By: Live Ashley on 10-19-2024 Nucleated red blood cell percentage 0 % 0-[address] [facility] Platelet countOrdered By: Dipak Ashley on 10-19-2024 Platelet count 150 K/mm3 150-[address] [facility] Platelets LM Ql (Bld)Ordered By: Live Ashley on 10-19-2024 Platelet estimate ADEQUATE ADEQ [facility] Potassium measurementOrdered By: Live Ashley on 10-19-2024 Potassium measurement 3.7 mmol/L 3.5-5.1 [facility] RBC Auto (Bld) [#/Vol]Ordere d By: Live Ashley on 10-19-2024 Automated blood erythrocyte count 5.49 M/mm3 4.6-6.[address] [facility] RBC morphology finding Nom ( Bld)Ordered By: Live Ashley on 10-19-2024 Erythrocyte morphology assessment NORM C+C NORMAL NORM C&C [facility] Serum anion gap measurementO rdered By: Live Ashley on 10-19-2024 Serum anion gap measurement 5 5-[address] [facility] Sodium levelOrdered By: Stevan Ashley on 10-19-2024 Sodium level 130 mmol/L Low 136-[address] [facility] Specific gravity (U) [Rel de nsity]Ordered By: Live Ashley on 10-19-2024 Urine specific gravity measurement 1.010 1.002-1.[address] [facility] Troponin IOrdered By: Srinivasa Ashley on 10-19-2024 Troponin I < 3 pg/mL Low 3.0-78.[address] [facility] Urea nitrogen [Mass/Vol]Orde red By: Live Ashley on 10-19-2024 Serum or plasma urea nitrogen measurement (mass/volume) 15 mg/dL 7-[address] [facility] Urinalysis, Completeon 10-19 EPI,SQUAMOUS 0-5 SEEN Normal 0-[address] [facility] Comment on above: Order Comment: CLEAN CATCH Performed By: #### M 100.2200 #### [facility] [address] [place], [place], [id number] BACTERIA 0 SEEN Normal None Seen [facility] Comment on above: Order Comment: CLEAN CATCH Performed By: #### M 100.2200 #### [facility] [address] [place], [place], [address] Mucus Ql (Urine sed) 0 SEEN Normal [facility] Comment on above: Order Comment: CLEAN CATCH Performed By: #### M 100.2200 #### [facility] [address] [place], [address] RBC 0 SEEN Normal 0-[address] [facility] Comment on above: Order Comment: CLEAN CATCH Performed By: #### M 100.2200 #### [facility] [address] [place], [address] WBC 0 SEEN Normal 0-[address] [facility] Comment on above: Order Comment: CLEAN CATCH Performed By: #### M 100.2200 #### [facility] [address] [place], [address] Urine total bilirubin detect ion by test stripOrdered By: Live Ashley on 10-19-2024 Urine total bilirubin detection by test strip Negative Negative [facility] Urobilinogen Ql (U)Ordered B y: Live Ashley on 10-19-2024 Urine urobilinogen measurement Normal mg/dl Normal [facility] White blood cell (WBC) count Ordered By: Live Ashley on 10-19-2024 White blood cell (WBC) count 8.0 K/mm3 4.4-11.[address] [facility] White blood cell countOrdere d By: Live Ashley on 10-19-2024 White blood cell count 0 SEEN /hpf [facility] pH (U)Ordered By: Live can on 10-19-2024 Urine pH 6.5 5.0 - 8.[address] [facility] Emergency Department Summary on 08-10-2024 Emergency Department Summary [facility] Medical Records Department [address] [place] [address] Emergency Department Summary 08/10/24 MR#: [id number] Acct: [id number] Name: JERALD YODER Rep #: [id number] : 1960 64 From: Adam Allen DO [...] mosquito bites. He denies any recent trauma. [facility] Medical History Partial traumatic amputation of [...] pain, diarrh (more content not included)... Normal [facility] Bedside Glucoseon 05-28-2024 FINGERSTICK GLU 402 mg/dL High 74-[address] [facility] Comment on above: Result Comment: TAYLOR SEALS OF PATIENT CARE PER NURSING PROTOCOL Performed By: #### L 501.080 #### [facility] Laboratory [address] [place], [address] Acetone Serumon 05-27-2024 ACETONE SERUM Negative Normal NEG [facility] Comment on above: Performed By: #### L 500.2500, L501.4020, L100.0100 #### [facility] [address] [place], [address] Basic Metabolic Profile (BMP )on 05-27-2024 BUN/CRE 15.5 RATIO Normal 10-[address] [facility] Comment on above: Performed By: #### L 500.2500, L501.4020, L100.0100 #### [facility] [address] [place], [address] CA,Total 9.1 mg/dL Normal 8.5-10.[address] [facility] Comment on above: Performed By: #### L 500.2500, L501.4020, L100.0100 #### [facility] [address] [place], [address] Chloride [Moles/Vol] 98 mmol/L Normal 98-107 [facility] Comment on above: Performed By: #### L 500.2500, L501.4020, L100.0100 #### [facility] [address] [place], [address] CO2 [Moles/Vol] 30.0 mmol/L Normal 21.0-32.[address] [facility] Comment on above: Performed By: #### L 500.2500, L501.4020, L100.0100 #### [facility] [address] [place], [address] Creatinine [Mass/Vol] 1.03 mg/dL Normal 0.70-1.30 [facility] Comment on above: Result Comment: The validity of the calculated GFR GFRAA in patients over 70 years has not been determined. Clinical correlation is essential. Performed By: #### L 500.2500, L501.4020, L100.0100 #### [facility] [address] [place], [address] ECRCL 91.31 ml/min Normal [facility] Comment on above: Performed By: #### L 500.2500, L501.4020, L100.0100 #### [facility] [address] [place], [address] EST GFR - AA 94 mL/min Normal >[address] [facility] Comment on above: Result Comment: Afri can Omani GFR Calc Performed By: #### L 500.2500, L501.4020, L100.0100 #### [facility] [address] [place], [address] GAP 7 Normal 5-[address] [facility] Comment on above: Performed By: #### L 500.2500, L501.4020, L100.0100 #### [facility] [address] [place], [address] GFR/1.73 sq M.predicted among non-blacks MDRD (S/P/Bld) [Vol rate/Area] 77 mL/min/{1.73_m2} Normal >[address] [facility] Comment on above: Result Comment: Non- GFR Calc Performed By: #### L 500.2500, L501.4020, L100.0100 #### [facility] [address] [place], [address] Glucose [Mass/Vol] 534 mg/dL Invalid Interpretation Code [address] [facility] Comment on above: Result Comment: Crit ical Result(s) Called at: 23:11:42 05/27/2024 by: Carla Townsend. Results read back by same. Glucose result greater than or equal to 200 mg/dL suggests DIABETES MELLITUS per A.D.A. criteria. Performed By: #### L 500.2500, L501.4020, L100.0100 #### [facility] [address] [place], [address] Potassium [Moles/Vol] 4.1 mmol/L Normal 3.5-5.1 [facility] Comment on above: Result Comment: Mode rate Hemolysis, Result may be falsely increased. Performed By: #### L 500.2500, L501.4020, L100.0100 #### [facility] [address] [place], [address] Sodium [Moles/Vol] 135 mmol/L Low 136-145 [facility] Comment on above: Performed By: #### L 500.2500, L501.4020, L100.0100 #### [facility] [address] [place], [address] Urea nitrogen [Mass/Vol] 16 mg/dL Normal 7-[address] [facility] Comment on above: Performed By: #### L 500.2500, L501.4020, L100.0100 #### [facility] [address] [place], [address] Bedside Glucoseon 05-27-2024 FINGERSTICK GLU > 500 Invalid Interpretation Code [address] [place] [address] Comment on above: Result Comment: TAYLOR SEALS OF PATIENT CARE PER NURSING PROTOCOL Performed By: #### L 501.080 #### [facility] [address] [place], [address] FINGERSTICK GLU 478 mg/dL Invalid Interpretation Code [facility] Comment on above: Result Comment: Dr Susan marie Followed MANAGEMENT OF PATIENT CARE PER NURSING PROTOCOL Performed By: #### L 501.080 #### [facility] [address] [place], [address] CBC W/Diff, Automatedon - Absolute Lymph 1.51 X10 3/uL Normal 0.83-4.[address] [facility] Comment on above: Performed By: #### L 500.2500, L501.4020, L100.0100 #### [facility] [address] [place], [address] Absolute Neut 3.8 X10 3/uL Normal 2.0-7.[address] [facility] Comment on above: Performed By: #### L 500.2500, L501.4020, L100.0100 #### [facility] [address] [place], [address] Basophils/100 WBC (Bld) 0.7 % Normal 0-1 [facility] Comment on above: Performed By: #### L 500.2500, L501.4020, L100.0100 #### [facility] [address] [place], [address] Eosinophils/100 WBC (Bld) 2.4 % Normal 0-[address] [facility] Comment on above: Performed By: #### L 500.2500, L501.4020, L100.0100 #### [facility] [address] [place], [address] Erythrocyte distribution width (RBC) [Ratio] 13.4 % Normal 11.6-14.[address] [facility] Comment on above: Performed By: #### L 500.2500, L501.4020, L100.0100 #### [facility] [address] [place], [address] Hematocrit (Bld) [Volume fraction] 40.4 % Normal 40-[address] [facility] Comment on above: Performed By: #### L 500.2500, L501.4020, L100.0100 #### [facility] [address] [place], [address] Hemoglobin (Bld) [Mass/Vol] 14.3 g/dL Normal 13.0-16.[address] [facility] Comment on above: Performed By: #### L 500.2500, L501.4020, L100.0100 #### [facility] [address] [place], [address] IG% 0.200 Normal 0.0-0.[address] [facility] Comment on above: Result Comment: IG% - Immature Granulocytes (promyelocytes, myelocytes and metamyelocytes) > 1% indicates that a LEFT SHIFT is Present. Performed By: #### L 500.2500, L501.4020, L100.0100 #### [facility] [address] [place], [address] Lymphocytes/100 WBC (Bld) 25.9 % Normal 19-[address] [facility] Comment on above: Performed By: #### L 500.2500, L501.4020, L100.0100 #### [facility] [address] [place], [address] MCH (RBC) [Entitic mass] 29.1 pg Normal 27.0-32.[address] [facility] Comment on above: Performed By: #### L 500.2500, L501.4020, L100.0100 #### [facility] [address] [place], [address] MCHC (RBC) [Mass/Vol] 35.4 g/dL Normal 32-36 [facility] Comment on above: Performed By: #### L 500.2500, L501.4020, L100.0100 #### [facility] [address] [place], [address] MCV (RBC) [Entitic vol] 82.3 fL Normal 80-94 [facility] Comment on above: Performed By: #### L 500.2500, L501.4020, L100.0100 #### [facility] [address] [place], [address] Monocytes/100 WBC (Bld) 6.3 % Normal 0-10 [facility] Comment on above: Performed By: #### L 500.2500, L501.4020, L100.0100 #### [facility] [address] [place], [address] Neutrophils/100 WBC (Bld) 64.5 % Normal 47-[address] [facility] Comment on above: Performed By: #### L 500.2500, L501.4020, L100.0100 #### [facility] [address] [place], [address] Nucleated RBC (Bld) [#/Vol] 0 10*3/uL Normal 0-[address] [facility] Comment on above: Performed By: #### L 500.2500, L501.4020, L100.0100 #### [facility] [address] [place], [address] Platelet mean volume (Bld) [Entitic vol] 9.5 fL Normal 6.2-12.[address] [facility] Comment on above: Performed By: #### L 500.2500, L501.4020, L100.0100 #### [facility] [address] [place], [address] Platelets (Bld) [#/Vol] 204 10*3/uL Normal 150-[address] [facility] Comment on above: Performed By: #### L 500.2500, L501.4020, L100.0100 #### [facility] [address] [place], [address] RBC (Bld) [#/Vol] 4.91 10*6/uL Normal 4.6-6.2 [facility] Comment on above: Performed By: #### L 500.2500, L501.4020, L100.0100 #### [facility] [address] [place], [address] RDW SD 39.8 fl Normal 35.1-43.[address] [facility] Comment on above: Performed By: #### L 500.2500, L501.4020, L100.0100 #### [facility] [address] [place], [address] WBC (Bld) [#/Vol] 5.8 10*3/uL Normal 4.4-11.0 [facility] Comment on above: Performed By: #### L 500.2500, L501.4020, L100.0100 #### [facility] [address] [place], [address] Emergency Department Summary on 05-27-2024 Emergency Department Summary [facility] Medical Records Department [address] [place] [address] Emergency Department Summary 05/27/24 MR#: [id number] Acct: [id number] Name: JERALD YODER Rep #: [id number] : 1960 64 From: Johann Lemons DO [...] he presents to the hospital for evaluation [facility] Medical History Partial traumatic amputation of [...] Respiratory Pat (more content not included)... Normal [facility] Lipaseon 05-27-2024 Lipase [Catalytic activity/Vol] 15 U/L Normal 13-[address] [facility] Comment on above: Result Comment: Oleksandr lopez note: LIPASE revised reference range effective 23. New Lipase methodology. Expected to produce lower values than the previous assay method. NEW Reference Range: 13 - 75 U/L Performed By: #### L 500.2500, L501.4020, L100.0100 #### [facility] [address] [place], [address] Liver Profileon 05-27-2024 Albumin [Mass/Vol] 3.3 g/dL Normal 3.2-5.0 [facility] Comment on above: Performed By: #### L 500.2500, L501.4020, L100.0100 #### [facility] [address] [place], [address] ALK P 77 U/L Normal 45-[address] [facility] Comment on above: Performed By: #### L 500.2500, L501.4020, L100.0100 #### [facility] [address] [place], [address] ALT [Catalytic activity/Vol] 23 U/L Normal 16-[address] [facility] Comment on above: Performed By: #### L 500.2500, L501.4020, L100.0100 #### [facility] [address] [place], [address] AST [Catalytic activity/Vol] 27 U/L Normal 15-[address] [facility] Comment on above: Result Comment: Mode rate Hemolysis, Result may be falsely increased. Performed By: #### L 500.2500, L501.4020, L100.0100 #### [facility] [address] [place], [address] Bilirubin [Mass/Vol] 0.50 mg/dL Normal 0.20-1.00 [facility] Comment on above: Result Comment: For patients on eltrombopag therapy, use of Dimension Gilliam TBIL is not recommended. Performed By: #### L 500.2500, L501.4020, L100.0100 #### [facility] [address] [place], [address] Bilirubin.direct [Mass/Vol] 0.07 mg/dL Normal 0.00-0.[address] [facility] Comment on above: Performed By: #### L 500.2500, L501.4020, L100.0100 #### [facility] [address] [place], [address] Globulin (S) [Mass/Vol] 3.5 g/dL Normal 2.2-4.2 [facility] Comment on above: Performed By: #### L 500.2500, L501.4020, L100.0100 #### [facility] [address] [place], [address] T PROT 6.8 g/dL Normal 6.4-8.[address] [facility] Comment on above: Performed By: #### L 500.2500, L501.4020, L100.0100 #### [facility] [address] [place], [address] Urinalysis, Completeon 05-27 EPI,SQUAMOUS 0-5 SEEN Normal 0-[address] [facility] Comment on above: Order Comment: COLLE CTOR TO SPECIFY Performed By: #### L 500.2500, L501.4020, L100.0100 #### [facility] [address] [place], [address] BACTERIA 0 SEEN Normal None Seen [facility] Comment on above: Order Comment: COLLE CTOR TO SPECIFY Performed By: #### L 500.2500, L501.4020, L100.0100 #### [facility] [address] [place], [address] Mucus Ql (Urine sed) 0 SEEN Normal [facility] Comment on above: Order Comment: COLLE CTOR TO SPECIFY Performed By: #### L 500.2500, L501.4020, L100.0100 #### [facility] [address] [place], [address] RBC 0 SEEN Normal 0-[address] [facility] Comment on above: Order Comment: COLLE CTOR TO SPECIFY Performed By: #### L 500.2500, L501.4020, L100.0100 #### [facility] [address] [place], [address] WBC 0 SEEN Normal 0-[address] [facility] Comment on above: Order Comment: NO CTOR TO SPECIFY Performed By: #### L 500.2500, L501.4020, L100.0100 #### [facility] [address] 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 Requesting ear irrigation. The history is provided by the patient. No automotive parts interpreter was used. Ear Problem There is pain [...] Colon polyp 2013 adenomatous Coronary artery disease DC in 1994 Diabetic neuropathy (HCC) DM (diabetes [...] Vaping Use (more content not included)... Normal [facility] Absolute lymphocyte countOrd ered By: Johann Lemons on 03-08-2024 Lymphocytes Auto (Unsp spec) [#/Vol] 1.65 10*3/uL 0.83-4.[address] [facility] Automated lymphocyte count a s percentage of total leukocytesOrdered By: Johann Lemons on 03-08-2024 Lymphocytes/100 WBC Auto (Unsp spec) 22.8 % 19-[address] [facility] Basophil percentageOrdered B y: Johann Lemons on 03-08-2024 Basophils/100 WBC (Bld) 0.6 % 0-1 [facility] Bilirubin [Mass/Vol] 0.60 mg/dL 0.20-1.[address] [facility] Comment on above: For patients on eltr ombopag therapy, use of Dimension Gilliam TBIL is not recommended. Chloride [Moles/Vol] 97 mmol/L 98-107 [facility] Eosinophils/100 WBC (Bld) 3.9 % 0-[address] [facility] Glucose [Mass/Vol] 520 mg/dL 74-106 [facility] Comment on above: Critical Result(s) C alled at: 07:30:39 03/08/2024 by: Darrell Santos to Dawna Vazquez. Results read back by same.Glucose result greater than or equal to 200 mg/dLsuggests DIABETES MELLITUS per A.D.A. criteria. Hemoglobin (Bld) [Mass/Vol] 14.8 g/dL 13.0-16.[address] [facility] Monocytes/100 WBC (Bld) 6.9 % 0-10 [facility] Neutrophils (Bld) [#/Vol] 4.8 10*3/uL 2.0-7.[address] [facility] Neutrophils/100 WBC (Bld) 65.4 % 47-[address] [facility] Potassium [Moles/Vol] 4.0 mmol/L 3.5-5.1 [facility] Protein [Mass/Vol] 7.2 g/dL 6.4-8.2 [facility] Sodium [Moles/Vol] 134 mmol/L 136-145 [facility] WBC (Bld) [#/Vol] 7.3 10*3/uL 4.4-11.0 [facility] Determination of erythrocyte mean corpuscular volume (MCV)Ordered By: Johann Lemons on 03-08-2024 MCV (RBC) [Entitic vol] 82.2 fL 80-94 [facility] Direct bilirubinOrdered By: Johann Lemons on 03-08-2024 Bilirubin.direct [Mass/Vol] 0.19 mg/dL 0.00-0.[address] [facility] Erythrocyte distribution wid th ratioOrdered By: Johann Lemons on 03-08-2024 Erythrocyte distribution width (RBC) [Ratio] 13.3 % 11.6-14.[address] [facility] Erythrocyte distribution wid th standard deviationOrdered By: Johann Lemons on 03-08-2024 Erythrocyte distribution width (RBC) [Entitic vol] 39.7 fL 35.1-43.[address] [facility] Hematocrit Auto (Bld) [Volum e fraction]Ordered By: Johann Lemons on 03-08-2024 Hematocrit (Bld) [Volume fraction] 42.9 % 40-[address] [facility] Immature granulocytes/100 WB C Auto (Bld)Ordered By: Johann Lemons on 03-08-2024 Immature granulocytes/100 WBC (Bld) 0.400 % 0.0-0.[address] [facility] Comment on above: IG% - Immature Granu locytes (promyelocytes, myelocytes and metamyelocytes) > 1% indicates that a LEFT SHIFT is Present. Laboratory - Chemistry and C hemistry - challengeOrdered By: Johann Lemons on 03-08-2024 ALP [Catalytic activity/Vol] 84 U/L 45-[address] [facility] ALT [Catalytic activity/Vol] 22 U/L 16-[address] [facility] CO2 [Moles/Vol] 31.0 mmol/L 21.0-32.[address] [facility] Globulin (S) [Mass/Vol] 3.5 g/dL 2.2-4.2 [facility] Lipase [Catalytic activity/Vol] 17 U/L 13-[address] [facility] Comment on above: Please note:LIPASE r evised reference range effective 23. New Lipase methodology. Expected to produce lower values than the previous assay method. NEW Reference Range: 13 - 75 U/L Urea nitrogen/Creatinine [Mass ratio] 16.7 mg/mg 10-[address] [facility] - Hematology and Cell countsOrdered By: Johann Lemons on 03-08-2024 MCH (RBC) [Entitic mass] 28.4 pg 27.0-32.[address] [facility] MCHC (RBC) [Mass/Vol] 34.5 g/dL 32-36 [facility] Nucleated RBC/100 WBC (Bld) [Ratio] 0 % 0-[address] [facility] Platelet mean volume (Bld) [Entitic vol] 9.6 fL 6.2-12.[address] [facility] Platelets (Bld) [#/Vol] 194 10*3/uL 150-[address] [facility] No Panel InformationOrdered By: Johann Lemons on 03-08-2024 Estimated Creatinine Clearance Calc 99.26 ml/min [facility] Estimated GFR (MDRD) Amer 102 mL/min >[address] [facility] Comment on above: GFR Calc Estimated GFR (MDRD) Non-Af Amer 84 mL/min >[address] [facility] Comment on above: Non- GFR Calc RBC Auto (Bld) [#/Vol]Ordere d By: Johann Lemons on 03-08-2024 RBC (Bld) [#/Vol] 5.22 10*6/uL 4.6-6.2 [facility] Serum or plasma calcium yayo urement (mass/volume)Ordered By: Johann Lemons on 03-08-2024 Calcium [Mass/Vol] 9.5 mg/dL 8.5-10.1 [facility] Serum or plasma creatinine m easurement (mass/volume)Ordered By: Johann Lemons on 03-08-2024 Creatinine [Mass/Vol] 0.96 mg/dL 0.70-1.30 [facility] Comment on above: The validity of the calculated GFR & GFRAA in patients over 70 years has not been determined. Clinical correlation is essential. Serum or plasma urea nitroge n measurement (mass/volume)Ordered By: Johann Lemons on 03-08-2024 Urea nitrogen [Mass/Vol] 16 mg/dL 7-[address] [facility] Thin prep Papanicolaou smear with manual screeningOrdered By: Johann Lemons on 03-08-2024 Thin prep Papanicolaou smear with manual screening 3.7 g/dL 3.2-5.[address] [facility] Thin prep Papanicolaou smear with manual screening 12 U/L 15-[address] [facility] Thin prep Papanicolaou smear with manual screening 6 5-[address] [facility] Absolute lymphocyte countOrd ered By: Keenan Wu on 02-07-2024 Lymphocytes Auto (Unsp spec) [#/Vol] 1.71 10*3/uL 0.83-4.[address] [facility] Automated lymphocyte count a s percentage of total leukocytesOrdered By: Keenan Wu on 02-07-2024 Lymphocytes/100 WBC Auto (Unsp spec) 17.4 % 19-[address] [facility] Basophil percentageOrdered B y: Keenan Wu on 02-07-2024 Basophil percentage 0 SEEN /hpf 0-5 [facility] Basophils/100 WBC (Bld) 0.5 % 0-1 [facility] Bilirubin [Mass/Vol] 0.60 mg/dL 0.20-1.00 [facility] Comment on above: For patients on eltr ombopag therapy, use of Dimension Gilliam TBIL is not recommended. Chloride [Moles/Vol] 98 mmol/L 98-107 [facility] Eosinophils/100 WBC (Bld) 3.1 % 0-[address] [facility] Glucose [Mass/Vol] 461 mg/dL 74-106 [facility] Comment on above: Critical Result(s) C alled at: 21:52:34 02/07/2024 by: [place] [id number]. Results read back by same.Glucose result greater than or equal to 200 mg/dLsuggests DIABETES MELLITUS per A.D.A. criteria. Hemoglobin (Bld) [Mass/Vol] 15.4 g/dL 13.0-16.[address] [facility] Monocytes/100 WBC (Bld) 5.4 % 0-10 [facility] Neutrophils (Bld) [#/Vol] 7.2 10*3/uL 2.0-7.[address] [facility] Neutrophils/100 WBC (Bld) 73.2 % 47-[address] [facility] Potassium [Moles/Vol] 3.9 mmol/L 3.5-5.1 [facility] Protein [Mass/Vol] 7.5 g/dL 6.4-8.2 [facility] Sodium [Moles/Vol] 134 mmol/L 136-145 [facility] WBC (Bld) [#/Vol] 9.9 10*3/uL 4.4-11.0 [facility] Bilirubin Test strip Ql (U)O rdered By: Keenan Wu on 02-07-2024 Bilirubin Ql (U) Negative Negative [facility] Determination of erythrocyte mean corpuscular volume (MCV)Ordered By: Keenan Wu on 02-07-2024 MCV (RBC) [Entitic vol] 82.1 fL 80-94 [facility] Erythrocyte distribution wid th ratioOrdered By: Keenan Wu on 02-07-2024 Erythrocyte distribution width (RBC) [Ratio] 13.6 % 11.6-14.[address] [facility] Erythrocyte distribution wid th standard deviationOrdered By: Keenan Wu on 02-07-2024 Erythrocyte distribution width (RBC) [Entitic vol] 40.1 fL 35.1-43.[address] [facility] Hematocrit Auto (Bld) [Volum e fraction]Ordered By: Keenan Wu on 02-07-2024 Hematocrit (Bld) [Volume fraction] 44.1 % 40-[address] [facility] Immature granulocytes/100 WB C Auto (Bld)Ordered By: Keenan Wu on 02-07-2024 Immature granulocytes/100 WBC (Bld) 0.400 % 0.0-0.[address] [facility] Comment on above: IG% - Immature Granu locytes (promyelocytes, myelocytes and metamyelocytes) > 1% indicates that a LEFT SHIFT is Present. Ketones Test strip Ql (U)Ord ered By: Keenan Wu on 02-07-2024 Ketones Ql (U) Negative Negative [facility] Laboratory - Chemistry and C hemistry - challengeOrdered By: Keenan Wu on 02-07-2024 Albumin/Globulin [Mass ratio] 1.1 {ratio} 0.9-2.[address] [facility] ALP [Catalytic activity/Vol] 105 U/L 45-[address] [facility] ALT [Catalytic activity/Vol] 20 U/L 16-[address] [facility] CO2 [Moles/Vol] 30.0 mmol/L 21.0-32.[address] [facility] Globulin (S) [Mass/Vol] 3.6 g/dL 2.2-4.2 [facility] Urea nitrogen/Creatinine [Mass ratio] 17.4 mg/mg 10-[address] [facility] - Drug toxicology Ordered By: Keenan Wu on 02-07-2024 Amphetamines Ql (U) Negative <1000 ng/mL [facility] Benzodiazepines Ql (U) Negative < 200 ng/mL [facility] Cannabinoids Screen Ql (U) Negative < 50 ng/mL [facility] Cocaine Ql (U) Negative < 300 ng/mL [facility] [facility] Ql (U) Negative < 300 ng/mL [facility] Laboratory - Hematology and Cell countsOrdered By: Keenan Wu on 02-07-2024 MCH (RBC) [Entitic mass] 28.7 pg 27.0-32.[address] [facility] MCHC (RBC) [Mass/Vol] 34.9 g/dL 32-36 [facility] Nucleated RBC/100 WBC (Bld) [Ratio] 0 % 0-[address] [facility] Platelet mean volume (Bld) [Entitic vol] 9.6 fL 6.2-12.[address] [facility] Platelets (Bld) [#/Vol] 255 10*3/uL 150-[address] [facility] Mucus LM Ql (Urine sed)Order ed By: Keenan Wu on 02-07-2024 Mucus Ql (Urine sed) 0 SEEN /hpf [facility] Nitrite Test strip Ql (U)Ord ered By: Keenan Wu on 02-07-2024 Nitrite Ql (U) Negative Negative [facility] No Panel InformationOrdered By: Keenan Wu on 02-07-2024 Ethyl Alcohol Level < 3.0 mg/dL [facility] Comment on above: The serum:whole bloo d ethanol ratio is approximately 1.14and varies slightly with hematocrit. Medical Alcohol reference interval and critical value innon-tolerant individuals; 50 - 100 Impairment 100 Intoxication 100 - 250 Severe Poisoning 250 - 400 Deep/possible fatal coma MDMA (Ecstasy) Screen Negative < 500 ng/mL [facility] Urine Barbiturates Screen Negative < 200 ng/mL [facility] Urine Drug Screen Comment [facility] Comment on above: CONFIRMATORY TESTING FOR [...] Methadone Screen Negative < 300 ng/mL [facility] Urine RBC 0 SEEN /hpf 0-[address] [facility] Estimated Creatinine Clearance Calc 87.42 ml/min [facility] Estimated GFR (MDRD) Amer 88 mL/min >[address] [facility] Comment on above: GFR Calc Estimated GFR (MDRD) Non-Af Amer 72 mL/min >[address] [facility] Comment on above: Non- GFR Calc Protein Test strip Ql (U)Ord ered By: Keenan Wu on 02-07-2024 Protein Ql (U) 15 mg/dl Negative [facility] RBC Auto (Bld) [#/Vol]Ordere d By: Keenan Wu on 02-07-2024 RBC (Bld) [#/Vol] 5.37 10*6/uL 4.6-6.2 [facility] Serum or plasma calcium yayo urement (mass/volume)Ordered By: Keenan Wu on 02-07-2024 Calcium [Mass/Vol] 10.2 mg/dL 8.5-10.1 [facility] Serum or plasma creatinine m easurement (mass/volume)Ordered By: Keenan Wu on 02-07-2024 Creatinine [Mass/Vol] 1.09 mg/dL 0.70-1.30 [facility] Comment on above: The validity of the calculated GFR & GFRAA in patients over 70 years has not been determined. Clinical correlation is essential. Serum or plasma urea nitroge n measurement (mass/volume)Ordered By: Keenan Wu on 02-07-2024 Urea nitrogen [Mass/Vol] 19 mg/dL 7-[address] [facility] Squamous epithelial cells de tection in urine sediment by light microscopyOrdered By: Keenan Wu on 02-07-2024 Epithelial cells.squamous LM Ql (Urine sed) 0 SEEN /hpf 0-[address] [facility] Thin prep Papanicolaou smear with manual screeningOrdered By: Keenan Wu on 02-07-2024 Thin prep Papanicolaou smear with manual screening 379 mg/dL 74-[address] [facility] Comment on above: MANAGEMENT OF PATIEN T CARE PER NURSING PROTOCOL Thin prep Papanicolaou smear with manual screening 3.9 g/dL 3.2-5.[address] [facility] Thin prep Papanicolaou smear with manual screening 12 U/L 15-[address] [facility] Thin prep Papanicolaou smear with manual screening 6 5-[address] [facility] Urine blood detectionOrdered By: Keenan Wu on 02-07-2024 RBC Ql (U) Negative Negative [facility] Urine clarityOrdered By: Osvaldo Wu on 02-07-2024 Clarity (U) Clear Clear [facility] Urine color determinationOrd ered By: Keenan Wu on 02-07-2024 Color (U) Yellow Yellow [facility] Urine glucose detectionOrder ed By: Keenan Wu on 02-07-2024 Glucose Ql (U) 1000 mg/dl Normal [facility] Urine leukocyte esterase det ection by dipstickOrdered By: Keenan Wu on 02-07-2024 Leukocyte esterase Test strip Ql (U) Negative Negative [facility] Urine pHOrdered By: Keenan overton on 02-07-2024 pH (U) 6.0 [pH] 5.0 - 8.[address] [facility] Urine phencyclidine (PCP) de tectionOrdered By: Keenan Wu on 02-07-2024 Phencyclidine Ql (U) Negative < 25 ng/mL [facility] Urine sediment bacteria coun t by microscopy (number/high power field)Ordered By: Keenan Wu on 02-07-2024 Bacteria LM.HPF (Urine sed) [#/Area] 0 /[HPF] None Seen [facility] Urine specific gravity measu rementOrdered By: Keenan Wu on 02-07-2024 Specific gravity (U) [Rel density] 1.015 1.002-1.[address] [facility] Urine urobilinogen measureme ntOrdered By: Keenan Wu on 02-07-2024 Urobilinogen Ql (U) Normal mg/dl Normal [facility] Amorphous sediment detection in urine sediment by light microscopyOrdered By: Shania Disla on 01-27-2024 Amorphous sediment LM Ql (Urine sed) [address] [facility] Basophil percentageOrdered B y: Shania Disla on 01-27-2024 Basophil percentage 0 SEEN /hpf 0-5 [facility] Bilirubin Test strip Ql (U)O rdered By: Shania Disla on 01-27-2024 Bilirubin Ql (U) Negative Negative [facility] Calcium oxalate crystals det ection in urine sediment by light microscopyOrdered By: Shania Disla on 01-27-2024 Calcium oxalate crystals LM Ql (Urine sed) 0 SEEN /hpf [facility] Hyaline casts LM.LPF (Urine sed) [#/Area]Ordered By: Shania Disla on 01-27-2024 Hyaline casts (Urine sed) [#/Area] 0 /[LPF] 0-[address] [facility] Ketones Test strip Ql (U)Ord ered By: Shania Disla on 01-27-2024 Ketones Ql (U) Negative Negative [facility] Magnesium ammonium phosphate crystal detectionOrdered By: Shania Disla on 01-27-2024 Triple phosphate crystals LM Ql (Urine sed) 0 SEEN /hpf [facility] Mucus LM Ql (Urine sed)Order ed By: Shania Disla on 01-27-2024 Mucus Ql (Urine sed) 0 SEEN /hpf [facility] Nitrite Test strip Ql (U)Ord ered By: Shania Disla on 01-27-2024 Nitrite Ql (U) Negative Negative [facility] No Panel InformationOrdered By: Shania Disla on 01-27-2024 Urine RBC 0 SEEN /hpf 0-[address] [facility] Protein Test strip Ql (U)Ord ered By: Shania Disla on 01-27-2024 Protein Ql (U) Negative Negative [facility] Squamous epithelial cells de tection in urine sediment by light microscopyOrdered By: Shania Disla on 01-27-2024 Epithelial cells.squamous LM Ql (Urine sed) 5-10 SEEN /hpf 0-[address] [facility] Thin prep Papanicolaou smear with manual screeningOrdered By: Shania Disla on 01-27-2024 Thin prep Papanicolaou smear with manual screening 277 mg/dL 74-[address] [facility] Comment on above: MANAGEMENT OF PATIEN T CARE PER NURSING PROTOCOL Urine blood detectionOrdered By: Shania Disla on 01-27-2024 RBC Ql (U) Negative Negative [facility] Urine clarityOrdered By: Anamaria Disla on 01-27-2024 Clarity (U) Clear Clear [facility] Urine coarse granular cast d etectionOrdered By: Shania Disla on 01-27-2024 Coarse Granular Casts LM Ql (Urine sed) 0 SEEN /lpf 0-5 /lpf [facility] Urine color determinationOrd ered By: Shania Disla on 01-27-2024 Color (U) Straw Yellow [facility] Urine glucose detectionOrder ed By: Shania Disla on 01-27-2024 Glucose Ql (U) 1000 mg/dl Normal [facility] Urine leukocyte esterase det ection by dipstickOrdered By: Shania Disla on 01-27-2024 Leukocyte esterase Test strip Ql (U) Negative Negative [facility] Urine pHOrdered By: Shania Disla on 01-27-2024 pH (U) 6.0 [pH] 5.0 - 8.[address] [facility] Urine sediment Trichomonas s pecies count by microscopy (number/low power field)Ordered By: Shania Disla on 01-27-2024 Trichomonas sp LM.LPF (Urine sed) [#/Area] 0 SEEN /hpf None Seen [facility] Urine sediment bacteria coun t by microscopy (number/high power field)Ordered By: Shania Disla on 01-27-2024 Bacteria LM.HPF (Urine sed) [#/Area] 0 /[HPF] None Seen [facility] Urine sediment erythrocyte c ast detection by light microscopyOrdered By: Shania Disla on 01-27-2024 RBC casts LM Ql (Urine sed) 0 SEEN /lpf None Seen [facility] Urine sediment fine granular cast count by microscopy (number/low power field)Ordered By: Shania Disla on 01-27-2024 Fine Granular Casts LM.LPF (Urine sed) [#/Area] 0 SEEN /lpf 0-[address] [facility] Urine sediment leukocyte pooja t count by microscopy (number/low power field)Ordered By: Shania Disla on 01-27-2024 WBC casts LM.LPF (Urine sed) [#/Area] 0 SEEN /lpf None Seen [facility] Urine sediment unidentified crystal count by microscopy (number/high powered field)Ordered By: Shania Disla on 01-27-2024 Unidentified crystals LM.HPF (Urine sed) [#/Area] 0 SEEN /hpf None Seen [facility] Urine sediment uric acid cry stal count by microscopy (number/high power field)Ordered By: Shania Disla on 01-27-2024 Urate crystals LM.HPF (Urine sed) [#/Area] 0 /[HPF] [facility] Urine sediment yeast count b y microscopy (number/high powered field)Ordered By: Shania Disla on 01-27-2024 Yeast LM.HPF (Urine sed) [#/Area] RARE /hpf None Seen [facility] Urine specific gravity measu rementOrdered By: Shania Disla on 01-27-2024 Specific gravity (U) [Rel density] 1.015 1.002-1.[address] [facility] Urine urobilinogen measureme ntOrdered By: Shania Disla on 01-27-2024 Urobilinogen Ql (U) Normal mg/dl Normal [facility] Waxy casts detection in urin e sediment by light microscopyOrdered By: Shania Disla on 01-27-2024 Waxy casts LM Ql (Urine sed) 0 SEEN /lpf None Seen [facility] Absolute lymphocyte countOrd ered By: Shania Disla on 01-26-2024 Lymphocytes Auto (Unsp spec) [#/Vol] 0.82 10*3/uL 0.83-4.[address] [facility] Automated lymphocyte count a s percentage of total leukocytesOrdered By: Shania Disla on 01-26-2024 Lymphocytes/100 WBC Auto (Unsp spec) 8.4 % 19-[address] [facility] Basophil percentageOrdered B y: Shania Disla on 01-26-2024 Basophils/100 WBC (Bld) 0.2 % 0-1 [facility] Bilirubin [Mass/Vol] 0.70 mg/dL 0.20-1.00 [facility] Comment on above: For patients on eltr ombopag therapy, use of Dimension Gilliam TBIL is not recommended. Chloride [Moles/Vol] 100 mmol/L 98-107 [facility] Eosinophils/100 WBC (Bld) 1.8 % 0-[address] [facility] Glucose [Mass/Vol] 553 mg/dL 74-106 [facility] Comment on above: Glucose result great er than or equal to 200 mg/dLsuggests DIABETES MELLITUS per A.D.A. criteria. Hemoglobin (Bld) [Mass/Vol] 14.3 g/dL 13.0-16.[address] [facility] Monocytes/100 WBC (Bld) 6.3 % 0-10 [facility] Neutrophils (Bld) [#/Vol] 8.1 10*3/uL 2.0-7.[address] [facility] Neutrophils/100 WBC (Bld) 83.0 % 47-[address] [facility] Potassium [Moles/Vol] 4.2 mmol/L 3.5-5.1 [facility] Protein [Mass/Vol] 6.8 g/dL 6.4-8.2 [facility] Sodium [Moles/Vol] 135 mmol/L 136-145 [facility] Comment on above: Critical Result(s) C alled at: 00:43:16 01/27/2024 by: Britney CHACON. Results read back by same. WBC (Bld) [#/Vol] 9.8 10*3/uL 4.4-11.0 [facility] Determination of erythrocyte mean corpuscular volume (MCV)Ordered By: Shania Disla on 01-26-2024 MCV (RBC) [Entitic vol] 82.4 fL 80-94 [facility] Direct bilirubinOrdered By: Shania Disla on 01-26-2024 Bilirubin.direct [Mass/Vol] 0.20 mg/dL 0.00-0.[address] [facility] Erythrocyte distribution wid th ratioOrdered By: Shania Disla on 01-26-2024 Erythrocyte distribution width (RBC) [Ratio] 13.4 % 11.6-14.[address] [facility] Erythrocyte distribution wid th standard deviationOrdered By: Shania Disla on 01-26-2024 Erythrocyte distribution width (RBC) [Entitic vol] 39.9 fL 35.1-43.[address] [facility] Hematocrit Auto (Bld) [Volum e fraction]Ordered By: Shania Disla on 01-26-2024 Hematocrit (Bld) [Volume fraction] 40.8 % 40-[address] [facility] Immature granulocytes/100 WB C Auto (Bld)Ordered By: Shania Disla on 01-26-2024 Immature granulocytes/100 WBC (Bld) 0.300 % 0.0-0.[address] [facility] Comment on above: IG% - Immature Granu locytes (promyelocytes, myelocytes and metamyelocytes) > 1% indicates that a LEFT SHIFT is Present. Laboratory - Chemistry and C hemistry - challengeOrdered By: Shania Disla on 01-26-2024 ALP [Catalytic activity/Vol] 71 U/L 45-[address] [facility] ALT [Catalytic activity/Vol] 24 U/L 16-[address] [facility] CO2 [Moles/Vol] 30.0 mmol/L 21.0-32.[address] [facility] Globulin (S) [Mass/Vol] 3.2 g/dL 2.2-4.2 [facility] Urea nitrogen/Creatinine [Mass ratio] 12.5 mg/mg 10-[address] [facility] Laboratory - Hematology and Cell countsOrdered By: Shania Disla on 01-26-2024 MCH (RBC) [Entitic mass] 28.9 pg 27.0-32.[address] [facility] MCHC (RBC) [Mass/Vol] 35.0 g/dL 32-36 [facility] Nucleated RBC/100 WBC (Bld) [Ratio] 0 % 0-[address] [facility] Platelet mean volume (Bld) [Entitic vol] 9.4 fL 6.2-12.[address] [facility] Platelets (Bld) [#/Vol] 167 10*3/uL 150-[address] [facility] Laboratory - Microbiology an d Antimicrobial susceptibilityOrdered By: Shania Disla on 01-26-2024 SARS-CoV-2 (COVID-19) RNA IOANA+probe Ql (Unsp spec) [facility] No Panel InformationOrdered By: Shania Disla on 01-26-2024 Estimated Creatinine Clearance Calc 85.08 ml/min [facility] Estimated GFR (MDRD) Amer 85 mL/min >[address] [facility] Comment on above: GFR Calc Estimated GFR (MDRD) Non-Af Amer 70 mL/min >[address] [facility] Comment on above: Non- GFR Calc RBC Auto (Bld) [#/Vol]Ordere d By: Shania Disla on 01-26-2024 RBC (Bld) [#/Vol] 4.95 10*6/uL 4.6-6.2 [facility] Serum or plasma acetone yayo urement (mass/volume)Ordered By: Shania Disla on 01-26-2024 Acetone [Mass/Vol] Negative NEG [facility] Serum or plasma calcium yayo urement (mass/volume)Ordered By: Shania Disla on 01-26-2024 Calcium [Mass/Vol] 9.3 mg/dL 8.5-10.1 [facility] Serum or plasma creatinine m easurement (mass/volume)Ordered By: Shania Disla on 01-26-2024 Creatinine [Mass/Vol] 1.12 mg/dL 0.70-1.30 [facility] Comment on above: The validity of the calculated GFR & GFRAA in patients over 70 years has not been determined. Clinical correlation is essential. Serum or plasma urea nitroge n measurement (mass/volume)Ordered By: Shania Disla on 01-26-2024 Urea nitrogen [Mass/Vol] 14 mg/dL 7-[address] [facility] Thin prep Papanicolaou smear with manual screeningOrdered By: Shania Disla on 01-26-2024 Thin prep Papanicolaou smear with manual screening 3.6 g/dL 3.2-5.[address] [facility] Thin prep Papanicolaou smear with manual screening 16 U/L 15-[address] [facility] Thin prep Papanicolaou smear with manual screening 5 5-[address] [facility] Erythrocyte sedimentation ra teOrdered By: Linden Chavez on 01-05-2024 ESR (Bld) [Velocity] 3 mm/h 0-20 [facility] No Panel InformationOrdered By: Linden Chavez on 01-05-2024 C-Reactive Protein Extended Range 3.41 mg/L 0.0-3.[address] [facility] Comment on above: C-Reactive Protein ( CRP) provides useful information for thediagnosis, therapy and monitoring of inflammatory processesand associated diseases. For the evaluation of Relative Riskfor Cardiovascular Disease, a High Sensitivity CRP (HSCRP)should be ordered. Endomysial IgA Antibody Negative Negative [facility] [place] Serum or plasma IgA measurem ent (mass/volume)Ordered By: Linden Chavez on 01-05-2024 IgA [Mass/Vol] 363 mg/dL 61-[address] [facility] Comment on above: Performed at: [facility] [place], [place] [id number] Director: Rasheed Denney PhD, Phone: [phone] Serum or plasma thyroid stim ulating hormone (TSH) measurement (units/volume)Ordered By: Linden Chavez on 01-05-2024 TSH Qn 8.45 uIU/mL 0.358-3.[address] [facility] Serum tissue transglutaminas e IgA antibody assay (units/volume)Ordered By: Linden Chavez on 01-05-2024 tTG IgA Qn (S) <2 U/mL 0-[address] [facility] Comment on above: Negative 0 - 3 Weak Positive 4 - 10 Positive >10 Tissue Transglutaminase (tTG) has been identified as the endomysial antigen. Studies have demonstr- ated that endomysial IgA antibodies have over 99% specificity for gluten sensitive enteropathy. Whole blood hemoglobin A1c/t otal hemoglobin ratio (mass fraction)Ordered By: Linden Chavez on 01-05-2024 HbA1c (Bld) [Mass fraction] 12.2 % 3.8-5.[address] [facility] Comment on above: Normal < 5.7 % Predi abetic 5.7 - 6.4 % Diabetic >or= 6.5 % Please note range changes. Basophil percentageOrdered B y: Shania Disla on 12-25-2023 Chloride [Moles/Vol] 102 mmol/L 98-107 [facility] Glucose [Mass/Vol] 476 mg/dL 74-106 [facility] Comment on above: Critical Result(s) C alled at: 09:52:20 12/25/2023 by: Santana Gaytan to Gabriela KOENIG (ER). Results read back by same.Glucose result greater than or equal to 200 mg/dLsuggests DIABETES MELLITUS per A.D.A. criteria. Potassium [Moles/Vol] 3.8 mmol/L 3.5-5.1 [facility] Sodium [Moles/Vol] 134 mmol/L 136-145 [facility] Laboratory - Chemistry and C hemistry - challengeOrdered By: Shania Disla on 12-25-2023 CO2 [Moles/Vol] 28.0 mmol/L 21.0-32.[address] [facility] Urea nitrogen/Creatinine [Mass ratio] 16.5 mg/mg 10-[address] [facility] No Panel InformationOrdered By: Sahnia Disla on 12-25-2023 Estimated Creatinine Clearance Calc 82.86 ml/min [facility] Estimated GFR (MDRD) Amer 82 mL/min >[address] [facility] Comment on above: GFR Calc Estimated GFR (MDRD) Non-Af Amer 68 mL/min >[address] [facility] Comment on above: Non- GFR Calc Serum or plasma calcium yayo urement (mass/volume)Ordered By: Shania Disla on 12-25-2023 Calcium [Mass/Vol] 9.3 mg/dL 8.5-10.1 [facility] Serum or plasma creatinine m easurement (mass/volume)Ordered By: Shania Disla on 12-25-2023 Creatinine [Mass/Vol] 1.15 mg/dL 0.70-1.30 [facility] Comment on above: The validity of the calculated GFR & GFRAA in patients over 70 years has not been determined. Clinical correlation is essential. Serum or plasma urea nitroge n measurement (mass/volume)Ordered By: Shania Disla on 12-25-2023 Urea nitrogen [Mass/Vol] 19 mg/dL 7-[address] [facility] Thin prep Papanicolaou smear with manual screeningOrdered By: Shania Disla on 12-25-2023 Thin prep Papanicolaou smear with manual screening 354 mg/dL 74-[address] [facility] Comment on above: MANAGEMENT OF PATIEN T CARE PER NURSING PROTOCOL Thin prep Papanicolaou smear with manual screening 4 5-[address] [facility] Absolute lymphocyte countOrd ered By: Barry Mathew on 11-22-2023 Lymphocytes Auto (Unsp spec) [#/Vol] 1.40 10*3/uL 0.83-4.[address] [facility] Automated lymphocyte count a s percentage of total leukocytesOrdered By: Barry Mathew on 11-22-2023 Lymphocytes/100 WBC Auto (Unsp spec) 18.9 % 19-[address] [facility] Basophil percentageOrdered B y: Barry Mathew on 11-22-2023 Basophil percentage 0-5 SEEN /hpf 0-5 [facility] Basophils/100 WBC (Bld) 0.4 % 0-1 [facility] Bilirubin [Mass/Vol] 0.80 mg/dL 0.20-1.00 [facility] Comment on above: For patients on eltr ombopag therapy, use of Dimension Gilliam TBIL is not recommended. Chloride [Moles/Vol] 101 mmol/L 98-107 [facility] Eosinophils/100 WBC (Bld) 4.5 % 0-[address] [facility] Glucose [Mass/Vol] 357 mg/dL 74-106 [facility] Comment on above: Glucose result great er than or equal to 200 mg/dLsuggests DIABETES MELLITUS per A.D.A. criteria. Hemoglobin (Bld) [Mass/Vol] 15.7 g/dL 13.0-16.[address] [facility] Monocytes/100 WBC (Bld) 5.0 % 0-10 [facility] Neutrophils (Bld) [#/Vol] 5.3 10*3/uL 2.0-7.[address] [facility] Neutrophils/100 WBC (Bld) 70.9 % 47-[address] [facility] Potassium [Moles/Vol] 3.8 mmol/L 3.5-5.1 [facility] Protein [Mass/Vol] 7.6 g/dL 6.4-8.2 [facility] Sodium [Moles/Vol] 137 mmol/L 136-145 [facility] WBC (Bld) [#/Vol] 7.4 10*3/uL 4.4-11.0 [facility] Bilirubin Test strip Ql (U)O rdered By: Barry Mathew on 11-22-2023 Bilirubin Ql (U) Negative Negative [facility] Determination of erythrocyte mean corpuscular volume (MCV)Ordered By: Barry Mathew on 11-22-2023 MCV (RBC) [Entitic vol] 81.6 fL 80-94 [facility] Erythrocyte distribution wid th ratioOrdered By: Barry Mathew on 11-22-2023 Erythrocyte distribution width (RBC) [Ratio] 13.4 % 11.6-14.[address] [facility] Erythrocyte distribution wid th standard deviationOrdered By: Barry Mathew on 11-22-2023 Erythrocyte distribution width (RBC) [Entitic vol] 39.2 fL 35.1-43.[address] [facility] Hematocrit Auto (Bld) [Volum e fraction]Ordered By: Barry Mathew on 11-22-2023 Hematocrit (Bld) [Volume fraction] 45.6 % 40-[address] [facility] Immature granulocytes/100 WB C Auto (Bld)Ordered By: Barry Mathew on 11-22-2023 Immature granulocytes/100 WBC (Bld) 0.300 % 0.0-0.[address] [facility] Comment on above: IG% - Immature Granu locytes (promyelocytes, myelocytes and metamyelocytes) > 1% indicates that a LEFT SHIFT is Present. Ketones Test strip Ql (U)Ord ered By: Barry Mathew on 11-22-2023 Ketones Ql (U) Negative Negative [facility] Laboratory - Chemistry and C hemistry - challengeOrdered By: Barry Mathew on 11-22-2023 Albumin/Globulin [Mass ratio] 0.9 {ratio} 0.9-2.[address] [facility] ALP [Catalytic activity/Vol] 100 U/L 45-[address] [facility] ALT [Catalytic activity/Vol] 16 U/L 16-[address] [facility] CO2 [Moles/Vol] 33.0 mmol/L 21.0-32.[address] [facility] Globulin (S) [Mass/Vol] 3.9 g/dL 2.2-4.2 [facility] Urea nitrogen/Creatinine [Mass ratio] 13.9 mg/mg 10-[address] [facility] Laboratory - Hematology and Cell countsOrdered By: Barry Mathew on 11-22-2023 MCH (RBC) [Entitic mass] 28.1 pg 27.0-32.[address] [facility] MCHC (RBC) [Mass/Vol] 34.4 g/dL 32-36 [facility] Nucleated RBC/100 WBC (Bld) [Ratio] 0 % 0-[address] [facility] Platelets (Bld) [#/Vol] 220 10*3/uL 150-[address] [facility] Mucus LM Ql (Urine sed)Order ed By: Barry Mathew on 11-22-2023 Mucus Ql (Urine sed) RARE /hpf [facility] Nitrite Test strip Ql (U)Ord ered By: Barry Mathew on 11-22-2023 Nitrite Ql (U) Negative Negative [facility] No Panel InformationOrdered By: Barry Mathew on 11-22-2023 Urine RBC 0 SEEN /hpf 0-[address] [facility] Estimated Creatinine Clearance Calc 101.37 ml/min [facility] Estimated GFR (MDRD) Amer 105 mL/min >[address] [facility] Comment on above: GFR Calc Estimated GFR (MDRD) Non-Af Amer 86 mL/min >[address] [facility] Comment on above: Non- GFR Calc Troponin I High Sensitivity 5 pg/mL 3.0-78.[address] [facility] Comment on above: Please Note: New Kira t Units and Gender Specific Reference Ranges. For more information see Policy Stat Procedure Gilliam High Sensitivity Troponin (TNIH) and attachments. Platelet mean volume Kamlesh-Ec ker (Bld) [Entitic vol]Ordered By: Barry Mathew on 11-22-2023 Platelet mean volume (Bld) [Entitic vol] 9.3 fL 6.2-12.[address] [facility] Protein Test strip Ql (U)Ord ered By: Barry Mathew on 11-22-2023 Protein Ql (U) 15 mg/dl Negative [facility] RBC Auto (Bld) [#/Vol]Ordere d By: Barry Mathew on 11-22-2023 RBC (Bld) [#/Vol] 5.59 10*6/uL 4.6-6.2 [facility] Serum or plasma calcium yayo urement (mass/volume)Ordered By: Barry Mathew on 11-22-2023 Calcium [Mass/Vol] 10.2 mg/dL 8.5-10.1 [facility] Serum or plasma creatinine m easurement (mass/volume)Ordered By: Barry Mathew on 11-22-2023 Creatinine [Mass/Vol] 0.94 mg/dL 0.70-1.30 [facility] Comment on above: The validity of the calculated GFR & GFRAA in patients over 70 years has not been determined. Clinical correlation is essential. Serum or plasma urea nitroge n measurement (mass/volume)Ordered By: Barry Mathew on 11-22-2023 Urea nitrogen [Mass/Vol] 13 mg/dL 7-[address] [facility] Squamous epithelial cells de tection in urine sediment by light microscopyOrdered By: Barry Mathew on 11-22-2023 Epithelial cells.squamous LM Ql (Urine sed) 0-5 SEEN /hpf 0-[address] [facility] Thin prep Papanicolaou smear with manual screeningOrdered By: Barry Mathew on 11-22-2023 Thin prep Papanicolaou smear with manual screening 3.7 g/dL 3.2-5.[address] [facility] Thin prep Papanicolaou smear with manual screening 9 U/L 15-[address] [facility] Thin prep Papanicolaou smear with manual screening 3 5-[address] [facility] Urine blood detectionOrdered By: Barry Mathew on 11-22-2023 RBC Ql (U) Negative Negative [facility] Urine clarityOrdered By: Silva Mathew on 11-22-2023 Clarity (U) Sl. Cloudy Clear [facility] Urine color determinationOrd ered By: Barry Mathew on 11-22-2023 Color (U) Yellow Yellow [facility] Urine glucose detectionOrder ed By: Barry Mathew on 11-22-2023 Glucose Ql (U) 1000 mg/dl Normal [facility] Urine leukocyte esterase det ection by dipstickOrdered By: Barry Mathew on 11-22-2023 Leukocyte esterase Test strip Ql (U) 25 /ul Negative [facility] Urine pHOrdered By: Barry otoole on 11-22-2023 pH (U) 5.0 [pH] 5.0 - 8.[address] [facility] Urine sediment bacteria coun t by microscopy (number/high power field)Ordered By: Barry Mathew on 11-22-2023 Bacteria LM.HPF (Urine sed) [#/Area] RARE /hpf None Seen [facility] Urine sediment yeast count b y microscopy (number/high powered field)Ordered By: Barry Mathew on 11-22-2023 Yeast LM.HPF (Urine sed) [#/Area] RARE /hpf None Seen [facility] Urine specific gravity measu rementOrdered By: Barry Mathew on 11-22-2023 Specific gravity (U) [Rel density] 1.020 1.002-1.[address] [facility] Urine urobilinogen measureme ntOrdered By: Barry Mathew on 11-22-2023 Urobilinogen Ql (U) 1 mg/dl Normal [facility] Absolute lymphocyte countOrd ered By: Live Ashley on 10-01-2023 Lymphocytes Auto (Unsp spec) [#/Vol] 1.41 10*3/uL 0.83-4.[address] [facility] Basophil percentageOrdered B y: Live Ashley on 10-01-2023 Basophils/100 WBC (Bld) 0.3 % 0-1 [facility] Chloride [Moles/Vol] 105 mmol/L 98-107 [facility] Eosinophils/100 WBC (Bld) 2.2 % 0-[address] [facility] Glucose [Mass/Vol] 429 mg/dL 74-106 [facility] Comment on above: Glucose result great er than or equal to 200 mg/dLsuggests DIABETES MELLITUS per A.D.A. criteria. Neutrophils (Bld) [#/Vol] 6.4 10*3/uL 2.0-7.[address] [facility] Neutrophils/100 WBC (Bld) 74.6 % 47-[address] [facility] Potassium [Moles/Vol] 4.0 mmol/L 3.5-5.1 [facility] Sodium [Moles/Vol] 137 mmol/L 136-145 [facility] WBC (Bld) [#/Vol] 8.6 10*3/uL 4.4-11.0 [facility] Blood erythrocytes count (nu mber/volume)Ordered By: Live Ashley on 10-01-2023 RBC (Bld) [#/Vol] 4.67 10*6/uL 4.6-6.2 [facility] Blood hemoglobin measurement (mass/volume)Ordered By: Live Ashley on 10-01-2023 Hemoglobin (Bld) [Mass/Vol] 13.4 g/dL 13.0-16.[address] [facility] Blood lymphocytes/100 leukoc ytesOrdered By: Live Ashley on 10-01-2023 Lymphocytes/100 WBC (Bld) 16.4 % 19-[address] [facility] Blood monocytes/100 leukocyt esOrdered By: Live Ashley on 10-01-2023 Monocytes/100 WBC (Bld) 6.3 % 0-10 [facility] Blood platelet mean volumeOr dered By: Live Ashley on 10-01-2023 Platelet mean volume (Bld) [Entitic vol] 9.4 fL 6.2-12.[address] [facility] Determination of erythrocyte mean corpuscular volume (MCV)Ordered By: Live Ashley on 10-01-2023 MCV (RBC) [Entitic vol] 84.4 fL 80-94 [facility] Hematocrit Auto (Bld) [Volum e fraction]Ordered By: Live Ashley on 10-01-2023 Hematocrit (Bld) [Volume fraction] 39.4 % 40-[address] [facility] Laboratory - Chemistry and C hemistry - challengeOrdered By: Live Ashley on 10-01-2023 CO2 [Moles/Vol] 28.0 mmol/L 21.0-32.[address] [facility] Urea nitrogen/Creatinine [Mass ratio] 14.9 mg/mg 10-[address] [facility] Laboratory - Hematology and Cell countsOrdered By: Live Ashley on 10-01-2023 Erythrocyte distribution width (RBC) [Entitic vol] 41.7 fL 35.1-43.[address] [facility] Erythrocyte distribution width (RBC) [Ratio] 13.7 % 11.6-14.[address] [facility] Immature granulocytes/100 WBC (Bld) 0.200 % 0.0-0.[address] [facility] Comment on above: IG% - Immature Granu locytes (promyelocytes, myelocytes and metamyelocytes) > 1% indicates that a LEFT SHIFT is Present. MCH (RBC) [Entitic mass] 28.7 pg 27.0-32.[address] [facility] Nucleated RBC/100 WBC (Bld) [Ratio] 0 % 0-[address] [facility] MCHC Auto (RBC) [Mass/Vol]Or dered By: Live Ashley on 10-01-2023 MCHC (RBC) [Mass/Vol] 34.0 g/dL 32-36 [facility] No Panel InformationOrdered By: Live Ashley on 10-01-2023 Estimated Creatinine Clearance Calc 83.59 ml/min [facility] Estimated GFR (MDRD) Amer 83 mL/min >[address] [facility] Comment on above: GFR Calc Estimated GFR (MDRD) Non-Af Amer 69 mL/min >[address] [facility] Comment on above: Non- GFR Calc Platelets bldOrdered By: Pankaj Ashley on 10-01-2023 Platelets (Bld) [#/Vol] 211 10*3/uL 150-[address] [facility] Serum or plasma calcium yayo urement (mass/volume)Ordered By: Live Ashley on 10-01-2023 Calcium [Mass/Vol] 8.8 mg/dL 8.5-10.1 [facility] Serum or plasma creatinine m easurement (mass/volume)Ordered By: Live Ashley on 10-01-2023 Creatinine [Mass/Vol] 1.14 mg/dL 0.70-1.30 [facility] Comment on above: The validity of the calculated GFR & GFRAA in patients over 70 years has not been determined. Clinical correlation is essential. Serum or plasma urea nitroge n measurement (mass/volume)Ordered By: Live Ashley on 10-01-2023 Urea nitrogen [Mass/Vol] 17 mg/dL 7-[address] [facility] Stool gastrointestinal hemog lobin detection by immunologic methodOrdered By: Live Ashley on 10-01-2023 Lower GI hemoglobin IA Ql (Stl) [facility] Lower GI hemoglobin IA Ql (Stl) [facility] Thin prep Papanicolaou smear with manual screeningOrdered By: Live Ashley on 10-01-2023 Thin prep Papanicolaou smear with manual screening 4 5-[address] [facility] Absolute lymphocyte countOrd ered By: Barry Mathew on 09-29-2023 Lymphocytes Auto (Unsp spec) [#/Vol] 1.47 10*3/uL 0.83-4.[address] [facility] Basophil percentageOrdered B y: Barry Mathew on 09-29-2023 Basophils/100 WBC (Bld) 0.6 % 0-1 [facility] Bilirubin [Mass/Vol] 0.40 mg/dL 0.20-1.00 [facility] Comment on above: For patients on eltr ombopag therapy, use of Dimension Gilliam TBIL is not recommended. Chloride [Moles/Vol] 105 mmol/L 98-107 [facility] Eosinophils/100 WBC (Bld) 1.7 % 0-[address] [facility] Glucose [Mass/Vol] 213 mg/dL 74-106 [facility] Comment on above: Glucose result great er than or equal to 200 mg/dLsuggests DIABETES MELLITUS per A.D.A. criteria. Neutrophils (Bld) [#/Vol] 8.5 10*3/uL 2.0-7.[address] [facility] Neutrophils/100 WBC (Bld) 78.5 % 47-[address] [facility] Potassium [Moles/Vol] 3.9 mmol/L 3.5-5.1 [facility] Protein [Mass/Vol] 7.2 g/dL 6.4-8.2 [facility] Sodium [Moles/Vol] 137 mmol/L 136-145 [facility] WBC (Bld) [#/Vol] 10.9 10*3/uL 4.4-11.0 [facility] Blood erythrocytes count (nu mber/volume)Ordered By: Barry Mathew on 09-29-2023 RBC (Bld) [#/Vol] 4.98 10*6/uL 4.6-6.2 [facility] Blood hemoglobin measurement (mass/volume)Ordered By: Barry Mathew on 09-29-2023 Hemoglobin (Bld) [Mass/Vol] 14.0 g/dL 13.0-16.[address] [facility] Blood lymphocytes/100 leukoc ytesOrdered By: Barry Mathew on 09-29-2023 Lymphocytes/100 WBC (Bld) 13.5 % 19-[address] [facility] Blood monocytes/100 leukocyt esOrdered By: Barry Mathew on 09-29-2023 Monocytes/100 WBC (Bld) 5.2 % 0-10 [facility] Blood platelet mean volumeOr dered By: Barry Mathew on 09-29-2023 Platelet mean volume (Bld) [Entitic vol] 9.2 fL 6.2-12.[address] [facility] Determination of erythrocyte mean corpuscular volume (MCV)Ordered By: Barry Mathew on 09-29-2023 MCV (RBC) [Entitic vol] 82.5 fL 80-94 [facility] Hematocrit Auto (Bld) [Volum e fraction]Ordered By: Barry Mathew on 09-29-2023 Hematocrit (Bld) [Volume fraction] 41.1 % 40-[address] [facility] Laboratory - Chemistry and C hemistry - challengeOrdered By: Barry Mathew on 09-29-2023 ALP [Catalytic activity/Vol] 100 U/L 45-[address] [facility] ALT [Catalytic activity/Vol] 14 U/L 16-[address] [facility] CO2 [Moles/Vol] 28.0 mmol/L 21.0-32.[address] [facility] Globulin (S) [Mass/Vol] 3.7 g/dL 2.2-4.2 [facility] Lipase [Catalytic activity/Vol] 13 U/L 13-[address] [facility] Comment on above: Please note:LIPASE r evised reference range effective 23. New Lipase methodology. Expected to produce lower values than the previous assay method. NEW Reference Range: 13 - 75 U/L Urea nitrogen/Creatinine [Mass ratio] 16.5 mg/mg 10-[address] [facility] Laboratory - Hematology and Cell countsOrdered By: Barry Mathew on 09-29-2023 Erythrocyte distribution width (RBC) [Entitic vol] 39.8 fL 35.1-43.[address] [facility] Erythrocyte distribution width (RBC) [Ratio] 13.4 % 11.6-14.[address] [facility] Immature granulocytes/100 WBC (Bld) 0.500 % 0.0-0.[address] [facility] Comment on above: IG% - Immature Granu locytes (promyelocytes, myelocytes and metamyelocytes) > 1% indicates that a LEFT SHIFT is Present. MCH (RBC) [Entitic mass] 28.1 pg 27.0-32.[address] [facility] Nucleated RBC/100 WBC (Bld) [Ratio] 0 % 0-[address] [facility] MCHC Auto (RBC) [Mass/Vol]Or dered By: Barry Mathew on 09-29-2023 MCHC (RBC) [Mass/Vol] 34.1 g/dL 32-36 [facility] No Panel InformationOrdered By: Barry Mathew on 09-29-2023 Estimated Creatinine Clearance Calc 92.51 ml/min [facility] Estimated GFR (MDRD) Amer 94 mL/min >[address] [facility] Comment on above: GFR Calc Estimated GFR (MDRD) Non-Af Amer 77 mL/min >[address] [facility] Comment on above: Non- GFR Calc Platelets bldOrdered By: Silva Mathew on 09-29-2023 Platelets (Bld) [#/Vol] 226 10*3/uL 150-[address] [facility] Serum or plasma albumin yayo urement (mass/volume)Ordered By: Barry Mathew on 09-29-2023 Albumin [Mass/Vol] 3.5 g/dL 3.2-5.0 [facility] Serum or plasma albumin/glob ulin mass ratioOrdered By: Barry Mathew on 09-29-2023 Albumin/Globulin [Mass ratio] 0.9 {ratio} 0.9-2.[address] [facility] Serum or plasma calcium yayo urement (mass/volume)Ordered By: Barry Mathew on 09-29-2023 Calcium [Mass/Vol] 8.7 mg/dL 8.5-10.1 [facility] Serum or plasma creatinine m easurement (mass/volume)Ordered By: Barry Mathew on 09-29-2023 Creatinine [Mass/Vol] 1.03 mg/dL 0.70-1.30 [facility] Comment on above: The validity of the calculated GFR & GFRAA in patients over 70 years has not been determined. Clinical correlation is essential. Serum or plasma urea nitroge n measurement (mass/volume)Ordered By: Barry Mathew on 09-29-2023 Urea nitrogen [Mass/Vol] 17 mg/dL 7-[address] [facility] Thin prep Papanicolaou smear with manual screeningOrdered By: Barry Mathew on 09-29-2023 Thin prep Papanicolaou smear with manual screening 9 U/L 15-[address] [facility] Thin prep Papanicolaou smear with manual screening 4 5-[address] [facility] Absolute lymphocyte countOrd ered By: Ar Calle on 07-29-2023 Lymphocytes Auto (Unsp spec) [#/Vol] 1.27 10*3/uL 0.83-4.[address] [facility] Basophil percentageOrdered B y: Ar Calle on 07-29-2023 Basophils/100 WBC (Bld) 0.7 % 0-1 [facility] Chloride [Moles/Vol] 100 mmol/L 98-107 [facility] Eosinophils/100 WBC (Bld) 2.4 % 0-[address] [facility] Glucose [Mass/Vol] 408 mg/dL 74-106 [facility] Comment on above: Glucose result great er than or equal to 200 mg/dLsuggests DIABETES MELLITUS per A.D.A. criteria. Neutrophils (Bld) [#/Vol] 6.2 10*3/uL 2.0-7.[address] [facility] Neutrophils/100 WBC (Bld) 74.4 % 47-[address] [facility] Potassium [Moles/Vol] 4.0 mmol/L 3.5-5.1 [facility] Sodium [Moles/Vol] 135 mmol/L 136-145 [facility] WBC (Bld) [#/Vol] 8.3 10*3/uL 4.4-11.0 [facility] Blood erythrocytes count (nu mber/volume)Ordered By: Ar Calle on 07-29-2023 RBC (Bld) [#/Vol] 4.62 10*6/uL 4.6-6.2 [facility] Blood hemoglobin measurement (mass/volume)Ordered By: Ar Calle on 07-29-2023 Hemoglobin (Bld) [Mass/Vol] 12.9 g/dL 13.0-16.[address] [facility] Blood lymphocytes/100 leukoc ytesOrdered By: Ar Calle on 07-29-2023 Lymphocytes/100 WBC (Bld) 15.2 % 19-[address] [facility] Blood monocytes/100 leukocyt esOrdered By: Ar Calle on 07-29-2023 Monocytes/100 WBC (Bld) 6.7 % 0-10 [facility] Blood platelet mean volumeOr dered By: Ar Calle on 07-29-2023 Platelet mean volume (Bld) [Entitic vol] 9.5 fL 6.2-12.[address] [facility] Determination of erythrocyte mean corpuscular volume (MCV)Ordered By: Ar Calle on 07-29-2023 MCV (RBC) [Entitic vol] 81.8 fL 80-94 [facility] Glucose Glucometer (BldC) [M ass/Vol]Ordered By: Arsusan Calle on 07-29-2023 Glucose [Mass/Vol] 400 mg/dL 74-106 [facility] Comment on above: MANAGEMENT OF PATIEN T CARE PER NURSING PROTOCOL Hematocrit Auto (Bld) [Volum e fraction]Ordered By: Arsusan Calle on 07-29-2023 Hematocrit (Bld) [Volume fraction] 37.8 % 40-[address] [facility] Laboratory - Chemistry and C hemistry - challengeOrdered By: Ar Calle on 07-29-2023 CO2 [Moles/Vol] 30.0 mmol/L 21.0-32.[address] [facility] Urea nitrogen/Creatinine [Mass ratio] 11.1 mg/mg 10-[address] [facility] Laboratory - Hematology and Cell countsOrdered By: Ar Calle on 07-29-2023 Erythrocyte distribution width (RBC) [Entitic vol] 39.1 fL 35.1-43.[address] [facility] Erythrocyte distribution width (RBC) [Ratio] 13.3 % 11.6-14.[address] [facility] Immature granulocytes/100 WBC (Bld) 0.600 % 0.0-0.[address] [facility] Comment on above: IG% - Immature Granu locytes (promyelocytes, myelocytes and metamyelocytes) > 1% indicates that a LEFT SHIFT is Present. MCH (RBC) [Entitic mass] 27.9 pg 27.0-32.[address] [facility] Nucleated RBC/100 WBC (Bld) [Ratio] 0 % 0-[address] [facility] MCHC Auto (RBC) [Mass/Vol]Or dered By: Arsusan Calle on 07-29-2023 MCHC (RBC) [Mass/Vol] 34.1 g/dL 32-36 [facility] No Panel InformationOrdered By: Arsusan Calle on 07-29-2023 Estimated Creatinine Clearance Calc 75.63 ml/min [facility] Estimated GFR (MDRD) Amer 74 mL/min >[address] [facility] Comment on above: GFR Calc Estimated GFR (MDRD) Non-Af Amer 61 mL/min >[address] [facility] Comment on above: Non- GFR Calc Troponin I High Sensitivity 4 pg/mL 3.0-78.[address] [facility] Comment on above: Please Note: New Kira t Units and Gender Specific Reference Ranges. For more information see Policy Stat Procedure Gilliam High Sensitivity Troponin (TNIH) and attachments. Platelets bldOrdered By: Ar Calle on 07-29-2023 Platelets (Bld) [#/Vol] 208 10*3/uL 150-[address] [facility] Serum or plasma calcium yayo urement (mass/volume)Ordered By: Arsusan Calle on 07-29-2023 Calcium [Mass/Vol] 8.5 mg/dL 8.5-10.1 [facility] Serum or plasma creatinine m easurement (mass/volume)Ordered By: Ar Calle on 07-29-2023 Creatinine [Mass/Vol] 1.26 mg/dL 0.70-1.30 [facility] Comment on above: The validity of the calculated GFR & GFRAA in patients over 70 years has not been determined. Clinical correlation is essential. Serum or plasma urea nitroge n measurement (mass/volume)Ordered By: Arsusan Calle on 07-29-2023 Urea nitrogen [Mass/Vol] 14 mg/dL 7-[address] [facility] Thin prep Papanicolaou smear with manual screeningOrdered By[facility] Thin prep Papanicolaou smear with manual screening 5 5-[address] [facility] Absolute lymphocyte countOrd ered By: Dr. Castillo on 03-07-2023 Lymphocytes Auto (Unsp spec) [#/Vol] 1.61 10*3/uL 0.83-4.[address] [facility] Basophil percentageOrdered B y: Dr. Castillo on 03-07-2023 Basophils/100 WBC (Bld) 0.5 % 0-1 [facility] Bilirubin [Mass/Vol] 0.60 mg/dL 0.20-1.00 [facility] Comment on above: For patients on eltr ombopag therapy, use of Dimension Gilliam TBIL is not recommended. Chloride [Moles/Vol] 104 mmol/L 98-107 [facility] Eosinophils/100 WBC (Bld) 3.1 % 0-[address] [facility] Glucose [Mass/Vol] 347 mg/dL 74-106 [facility] Comment on above: Glucose result great er than or equal to 200 mg/dLsuggests DIABETES MELLITUS per A.D.A. criteria. Neutrophils (Bld) [#/Vol] 5.0 10*3/uL 2.0-7.[address] [facility] Neutrophils/100 WBC (Bld) 67.8 % 47-[address] [facility] Potassium [Moles/Vol] 3.8 mmol/L 3.5-5.1 [facility] Protein [Mass/Vol] 7.3 g/dL 6.4-8.2 [facility] Sodium [Moles/Vol] 139 mmol/L 136-145 [facility] WBC (Bld) [#/Vol] 7.4 10*3/uL 4.4-11.0 [facility] Blood erythrocytes count (nu mber/volume)Ordered By: Dr. Castillo on 03-07-2023 RBC (Bld) [#/Vol] 5.02 10*6/uL 4.6-6.2 [facility] Blood hemoglobin measurement (mass/volume)Ordered By: Dr. Castillo on 03-07-2023 Hemoglobin (Bld) [Mass/Vol] 14.3 g/dL 13.0-16.[address] [facility] Blood lymphocytes/100 leukoc ytesOrdered By: Dr. Castillo on 03-07-2023 Lymphocytes/100 WBC (Bld) 21.8 % 19-[address] [facility] Blood monocytes/100 leukocyt esOrdered By: Dr. Castillo on 03-07-2023 Monocytes/100 WBC (Bld) 6.4 % 0-10 [facility] Blood platelet mean volumeOr dered By: Dr. Castillo on 03-07-2023 Platelet mean volume (Bld) [Entitic vol] 9.5 fL 6.2-12.[address] [facility] Determination of erythrocyte mean corpuscular volume (MCV)Ordered By: Dr. Castillo on 03-07-2023 MCV (RBC) [Entitic vol] 83.3 fL 80-94 [facility] Direct bilirubinOrdered By: Dr. Castillo on 03-07-2023 Bilirubin.direct [Mass/Vol] 0.12 mg/dL 0.00-0.[address] [facility] Glucose Glucometer (BldC) [M ass/Vol]Ordered By: Dr. Castillo on 03-07-2023 Glucose [Mass/Vol] 134 mg/dL 74-106 [facility] Comment on above: MANAGEMENT OF PATIEN T CARE PER NURSING PROTOCOL Hematocrit Auto (Bld) [Volum e fraction]Ordered By: Dr. Castillo on 03-07-2023 Hematocrit (Bld) [Volume fraction] 41.8 % 40-[address] [facility] Laboratory - Chemistry and C hemistry - challengeOrdered By: Dr. Castillo on 03-07-2023 ALP [Catalytic activity/Vol] 67 U/L 45-[address] [facility] ALT [Catalytic activity/Vol] 16 U/L 16-[address] [facility] CO2 [Moles/Vol] 27.0 mmol/L 21.0-32.[address] [facility] Globulin (S) [Mass/Vol] 3.8 g/dL 2.2-4.2 [facility] Lipase [Catalytic activity/Vol] 12 U/L 13-[address] [facility] Comment on above: Please note:LIPASE r evised reference range effective 23. New Lipase methodology. Expected to produce lower values than the previous assay method. NEW Reference Range: 13 - 75 U/L Urea nitrogen/Creatinine [Mass ratio] 12.5 mg/mg 10-[address] [facility] Laboratory - Hematology and Cell countsOrdered By: Dr. Castillo on 03-07-2023 Erythrocyte distribution width (RBC) [Entitic vol] 40.3 fL 35.1-43.[address] [facility] Erythrocyte distribution width (RBC) [Ratio] 13.3 % 11.6-14.[address] [facility] Immature granulocytes/100 WBC (Bld) 0.400 % 0.0-0.[address] [facility] Comment on above: IG% - Immature Granu locytes (promyelocytes, myelocytes and metamyelocytes) > 1% indicates that a LEFT SHIFT is Present. MCH (RBC) [Entitic mass] 28.5 pg 27.0-32.[address] [facility] Nucleated RBC/100 WBC (Bld) [Ratio] 0 % 0-[address] [facility] MCHC Auto (RBC) [Mass/Vol]Or dered By: Dr. Castillo on 03-07-2023 MCHC (RBC) [Mass/Vol] 34.2 g/dL 32-36 [facility] No Panel InformationOrdered By: Dr. Castillo on 03-07-2023 Estimated Creatinine Clearance Calc 85.63 ml/min [facility] Estimated GFR (MDRD) Amer 93 mL/min >[address] [facility] Comment on above: GFR Calc Estimated GFR (MDRD) Non-Af Amer 77 mL/min >[address] [facility] Comment on above: Non- GFR Calc Ethyl Alcohol Level < 3.0 mg/dL [facility] Comment on above: The serum:whole bloo d ethanol ratio is approximately 1.14and varies slightly with hematocrit. Medical Alcohol reference interval and critical value innon-tolerant individuals; 50 - 100 Impairment 100 Intoxication 100 - 250 Severe Poisoning 250 - 400 Deep/possible fatal coma Platelets bldOrdered By: Dr. Castillo on 03-07-2023 Platelets (Bld) [#/Vol] 214 10*3/uL 150-[address] [facility] Serum or plasma albumin yayo urement (mass/volume)Ordered By: Dr. Castillo on 03-07-2023 Albumin [Mass/Vol] 3.5 g/dL 3.2-5.0 [facility] Serum or plasma calcium yayo urement (mass/volume)Ordered By: Dr. Castillo on 03-07-2023 Calcium [Mass/Vol] 8.7 mg/dL 8.5-10.1 [facility] Serum or plasma creatinine m easurement (mass/volume)Ordered By: Dr. Castillo on 03-07-2023 Creatinine [Mass/Vol] 1.04 mg/dL 0.70-1.30 [facility] Comment on above: The validity of the calculated GFR & GFRAA in patients over 70 years has not been determined. Clinical correlation is essential. Serum or plasma urea nitroge n measurement (mass/volume)Ordered By: Dr. Castillo on 03-07-2023 Urea nitrogen [Mass/Vol] 13 mg/dL 7-[address] [facility] Thin prep Papanicolaou smear with manual screeningOrdered By: Dr. Castillo on 03-07-2023 Thin prep Papanicolaou smear with manual screening 13 U/L 15-[address] [facility] Thin prep Papanicolaou smear with manual screening 8 5-[address] [facility] Absolute lymphocyte countOrd ered By: Dr. Chavez on 01-18-2023 Lymphocytes Auto (Unsp spec) [#/Vol] 1.51 10*3/uL 0.83-4.[address] [facility] Basophil percentageOrdered B y: Dr. Chavez on 01-18-2023 Basophils/100 WBC (Bld) 0.5 % 0-1 [facility] Bilirubin [Mass/Vol] 0.90 mg/dL 0.20-1.00 [facility] Comment on above: For patients on eltr ombopag therapy, use of Dimension Gilliam TBIL is not recommended. Chloride [Moles/Vol] 105 mmol/L 98-107 [facility] Eosinophils/100 WBC (Bld) 2.6 % 0-[address] [facility] Glucose [Mass/Vol] 182 mg/dL 74-106 [facility] Comment on above: Fasting Glucose resu lt greater than or equal to 126 mg/dL suggests DIABETES MELLITUS per A.D.A. criteria. Neutrophils (Bld) [#/Vol] 6.0 10*3/uL 2.0-7.[address] [facility] Neutrophils/100 WBC (Bld) 71.9 % 47-[address] [facility] Potassium [Moles/Vol] 3.4 mmol/L 3.5-5.1 [facility] Protein [Mass/Vol] 6.9 g/dL 6.4-8.2 [facility] Sodium [Moles/Vol] 139 mmol/L 136-145 [facility] WBC (Bld) [#/Vol] 8.4 10*3/uL 4.4-11.0 [facility] Blood erythrocytes count (nu mber/volume)Ordered By: Dr. Chavez on 01-18-2023 RBC (Bld) [#/Vol] 5.01 10*6/uL 4.6-6.2 [facility] Blood hemoglobin measurement (mass/volume)Ordered By: Dr. Chavez on 01-18-2023 Hemoglobin (Bld) [Mass/Vol] 14.4 g/dL 13.0-16.[address] [facility] Blood lymphocytes/100 leukoc ytesOrdered By: Dr. Chavez on 01-18-2023 Lymphocytes/100 WBC (Bld) 18.0 % 19-[address] [facility] Blood monocytes/100 leukocyt esOrdered By: Dr. Chavez on 01-18-2023 Monocytes/100 WBC (Bld) 6.8 % 0-10 [facility] Blood platelet mean volumeOr dered By: Dr. Chavez on 01-18-2023 Platelet mean volume (Bld) [Entitic vol] 8.9 fL 6.2-12.[address] [facility] Clostridium difficile detect ion by polymerase chain reactionOrdered By: Bernard Chavez on 01-18-2023 C. difficile DNA IOANA+probe Ql (Unsp spec) [facility] Clostridium difficile detect ion by polymerase chain reactionOrdered By: Dr. Chavez on 01-18-2023 C. difficile DNA IOANA+probe Ql (Unsp spec) [facility] Determination of erythrocyte mean corpuscular volume (MCV)Ordered By: Dr. Chavez on 01-18-2023 MCV (RBC) [Entitic vol] 81.6 fL 80-94 [facility] Hematocrit Auto (Bld) [Volum e fraction]Ordered By: Dr. Chavez on 01-18-2023 Hematocrit (Bld) [Volume fraction] 40.9 % 40-[address] [facility] Laboratory - Chemistry and C hemistry - challengeOrdered By: Dr. Chavez on 01-18-2023 ALP [Catalytic activity/Vol] 64 U/L 45-[address] [facility] ALT [Catalytic activity/Vol] 14 U/L 16-[address] [facility] CO2 [Moles/Vol] 28.0 mmol/L 21.0-32.[address] [facility] Globulin (S) [Mass/Vol] 3.2 g/dL 2.2-4.2 [facility] Urea nitrogen/Creatinine [Mass ratio] 11.7 mg/mg 10-[address] [facility] Laboratory - Hematology and Cell countsOrdered By: Dr. Chavez on 01-18-2023 Erythrocyte distribution width (RBC) [Entitic vol] 39.6 fL 35.1-43.[address] [facility] Erythrocyte distribution width (RBC) [Ratio] 13.4 % 11.6-14.[address] [facility] Immature granulocytes/100 WBC (Bld) 0.200 % 0.0-0.[address] [facility] Comment on above: IG% - Immature Granu locytes (promyelocytes, myelocytes and metamyelocytes) > 1% indicates that a LEFT SHIFT is Present. MCH (RBC) [Entitic mass] 28.7 pg 27.0-32.[address] [facility] Nucleated RBC/100 WBC (Bld) [Ratio] 0 % 0-[address] [facility] MCHC Auto (RBC) [Mass/Vol]Or dered By: Dr. Chavez on 01-18-2023 MCHC (RBC) [Mass/Vol] 35.2 g/dL 32-36 [facility] No Panel InformationOrdered By: Dr. Chavez on 01-18-2023 Estimated Creatinine Clearance Calc 102.69 ml/min [facility] Estimated GFR (MDRD) Amer 105 mL/min >[address] [facility] Comment on above: GFR Calc Estimated GFR (MDRD) Non-Af Amer 86 mL/min >[address] [facility] Comment on above: Non- GFR Calc Platelets bldOrdered By: Dr. Chavez on 01-18-2023 Platelets (Bld) [#/Vol] 199 10*3/uL 150-[address] [facility] Serum or plasma albumin yayo urement (mass/volume)Ordered By: Dr. Chavez on 01-18-2023 Albumin [Mass/Vol] 3.7 g/dL 3.2-5.0 [facility] Serum or plasma albumin/glob ulin mass ratioOrdered By: Dr. Chavez on 01-18-2023 Albumin/Globulin [Mass ratio] 1.2 {ratio} 0.9-2.[address] [facility] Serum or plasma calcium yayo urement (mass/volume)Ordered By: Dr. Chavez on 01-18-2023 Calcium [Mass/Vol] 8.3 mg/dL 8.5-10.1 [facility] Serum or plasma creatinine m easurement (mass/volume)Ordered By: Dr. Chavez on 01-18-2023 Creatinine [Mass/Vol] 0.94 mg/dL 0.70-1.30 [facility] Comment on above: The validity of the calculated GFR & GFRAA in patients over 70 years has not been determined. Clinical correlation is essential. Serum or plasma urea nitroge n measurement (mass/volume)Ordered By: Dr. Chavez on 01-18-2023 Urea nitrogen [Mass/Vol] 11 mg/dL 7-[address] [facility] Stool lactoferrin detection by immunoassayOrdered By: Bernard Chavez on 01-18-2023 Lactoferrin IA Ql (Stl) [facility] [place] Stool lactoferrin detection by immunoassayOrdered By: Dr. Chavez on 01-18-2023 Lactoferrin IA Ql (Stl) [facility] Thin prep Papanicolaou smear with manual screeningOrdered By: Dr. Chavez on 01-18-2023 Thin prep Papanicolaou smear with manual screening 10 U/L 15- [facility] Thin prep Papanicolaou smear with manual screening 6 - [facility] Laboratory - Chemistry and C hemistry - challengeOrdered By: Dr. Chavez on 12-15-2022 Free T4 [Mass/Vol] 0.76 ng/dL 0.76-1.46 [facility] No Panel InformationOrdered By: Dr. Chavez on 12-15-2022 Thyroid Stimulating Hormone (TSH) 9.17 uIU/mL 0.358-3.[address] [facility] Absolute lymphocyte countOrd ered By: Dr. Wu on 12-11-2022 Lymphocytes Auto (Unsp spec) [#/Vol] 1.53 10*3/uL 0.83-4.[address] [facility] Basophil percentageOrdered B y: Dr. Wu on 12-11-2022 Basophil percentage 0 SEEN /hpf 0-5 [facility] Basophils/100 WBC (Bld) 0.6 % 0-1 [facility] Bilirubin [Mass/Vol] 0.60 mg/dL 0.20-1.00 [facility] Comment on above: For patients on eltr ombopag therapy, use of Dimension Gilliam TBIL is not recommended. Chloride [Moles/Vol] 104 mmol/L 98-107 [facility] Eosinophils/100 WBC (Bld) 3.4 % 0-[address] [facility] Glucose [Mass/Vol] 337 mg/dL 74-106 [facility] Comment on above: Glucose result great er than or equal to 200 mg/dLsuggests DIABETES MELLITUS per A.D.A. criteria. Neutrophils (Bld) [#/Vol] 4.6 10*3/uL 2.0-7.[address] [facility] Neutrophils/100 WBC (Bld) 67.1 % 47-[address] [facility] Potassium [Moles/Vol] 3.4 mmol/L 3.5-5.1 [facility] Protein [Mass/Vol] 6.7 g/dL 6.4-8.2 [facility] Sodium [Moles/Vol] 139 mmol/L 136-145 [facility] WBC (Bld) [#/Vol] 6.8 10*3/uL 4.4-11.0 [facility] Bilirubin Test strip Ql (U)O rdered By: Dr. Wu on 12-11-2022 Bilirubin Ql (U) Negative Negative [facility] Blood erythrocytes count (nu mber/volume)Ordered By: Dr. Wu on 12-11-2022 RBC (Bld) [#/Vol] 5.09 10*6/uL 4.6-6.2 [facility] Blood hemoglobin measurement (mass/volume)Ordered By: Dr. Wu on 12-11-2022 Hemoglobin (Bld) [Mass/Vol] 14.4 g/dL 13.0-16.[address] [facility] Blood lymphocytes/100 leukoc ytesOrdered By: Dr. Wu on 12-11-2022 Lymphocytes/100 WBC (Bld) 22.4 % 19-[address] [facility] Blood monocytes/100 leukocyt esOrdered By: Dr. Wu on 12-11-2022 Monocytes/100 WBC (Bld) 6.1 % 0-10 [facility] Blood platelet mean volumeOr dered By: Dr. Wu on 12-11-2022 Platelet mean volume (Bld) [Entitic vol] 9.5 fL 6.2-12.[address] [facility] Determination of erythrocyte mean corpuscular volume (MCV)Ordered By: Dr. Wu on 12-11-2022 MCV (RBC) [Entitic vol] 82.3 fL 80-94 [facility] Glucose Glucometer (BldC) [M ass/Vol]Ordered By: Dr. Wu on 12-11-2022 Glucose [Mass/Vol] 272 mg/dL 74-106 [facility] Comment on above: MANAGEMENT OF PATIEN T CARE PER NURSING PROTOCOL Hematocrit Auto (Bld) [Volum e fraction]Ordered By: Dr. Wu on 12-11-2022 Hematocrit (Bld) [Volume fraction] 41.9 % 40-[address] [facility] Influenza virus A and B and SARS-CoV-2 (COVID-19) Ag panel - Upper respiratory specimOrdered By: Dr. Wu on 12-11-2022 SARS-CoV-2 (COVID-19) RNA IOANA+probe Ql (Resp) [facility] Ketones Test strip Ql (U)Ord ered By: Dr. Wu on 12-11-2022 Ketones Ql (U) 5 mg/dl Negative [facility] Laboratory - Chemistry and C hemistry - challengeOrdered By: Dr. Wu on 12-11-2022 ALP [Catalytic activity/Vol] 72 U/L 45-[address] [facility] ALT [Catalytic activity/Vol] 12 U/L 16-[address] [facility] CO2 [Moles/Vol] 28.0 mmol/L 21.0-32.[address] [facility] Globulin (S) [Mass/Vol] 3.2 g/dL 2.2-4.2 [facility] Urea nitrogen/Creatinine [Mass ratio] 8.6 mg/mg 10-[address] [facility] Laboratory - Drug toxicology Ordered By: Dr. Wu on 12-11-2022 Amphetamines Ql (U) Negative <1000 ng/mL [facility] Benzodiazepines Ql (U) Negative < 200 ng/mL [facility] Cannabinoids Screen Ql (U) Negative < 50 ng/mL [facility] Cocaine Ql (U) Negative < 300 ng/mL [facility] Opiates Ql (U) Negative < 300 ng/mL [facility] Laboratory - Hematology and Cell countsOrdered By: Dr. Wu on 12-11-2022 Erythrocyte distribution width (RBC) [Entitic vol] 38.8 fL 35.1-43.[address] [facility] Erythrocyte distribution width (RBC) [Ratio] 13.2 % 11.6-14.[address] [facility] Immature granulocytes/100 WBC (Bld) 0.400 % 0.0-0.[address] [facility] Comment on above: IG% - Immature Granu locytes (promyelocytes, myelocytes and metamyelocytes) > 1% indicates that a LEFT SHIFT is Present. MCH (RBC) [Entitic mass] 28.3 pg 27.0-32.[address] [facility] Nucleated RBC/100 WBC (Bld) [Ratio] 0 % 0-[address] [facility] MCHC Auto (RBC) [Mass/Vol]Or dered By: Dr. Wu on 12-11-2022 MCHC (RBC) [Mass/Vol] 34.4 g/dL 32-36 [facility] Mucus LM Ql (Urine sed)Order ed By: Dr. Wu on 12-11-2022 Mucus Ql (Urine sed) RARE /hpf [facility] Nitrite Test strip Ql (U)Ord ered By: Dr. Wu on 12-11-2022 Nitrite Ql (U) Negative Negative [facility] No Panel InformationOrdered By: Dr. Wu on 12-11-2022 MDMA (Ecstasy) Screen Negative < 500 ng/mL [facility] Urine Barbiturates Screen Negative < 200 ng/mL [facility] Urine Drug Screen Comment [facility] Comment on above: CONFIRMATORY TESTING FOR [...] Methadone Screen Negative < 300 ng/mL [facility] Estimated Creatinine Clearance Calc 103.79 ml/min [facility] Estimated GFR (MDRD) Amer 105 mL/min >[address] [facility] Comment on above: GFR Calc Estimated GFR (MDRD) Non-Af Amer 87 mL/min >[address] [facility] Comment on above: Non- GFR Calc Ethyl Alcohol Level < 3.0 mg/dL [facility] Comment on above: The serum:whole bloo d ethanol ratio is approximately 1.14and varies slightly with hematocrit. Medical Alcohol reference interval and critical value innon-tolerant individuals; 50 - 100 Impairment 100 Intoxication 100 - 250 Severe Poisoning 250 - 400 Deep/possible fatal coma Troponin I High Sensitivity 6 pg/mL 3.0-78.[address] [facility] Comment on above: Please Note: New Kira t Units and Gender Specific Reference Ranges. For more information see Policy Stat Procedure Gilliam High Sensitivity Troponin (TNIH) and attachments. Platelets bldOrdered By: Dr. Wu on 12-11-2022 Platelets (Bld) [#/Vol] 202 10*3/uL 150-[address] [facility] Protein Test strip Ql (U)Ord ered By: Dr. Wu on 12-11-2022 Protein Ql (U) 15 mg/dl Negative [facility] Serum or plasma albumin yayo urement (mass/volume)Ordered By: Dr. Wu on 12-11-2022 Albumin [Mass/Vol] 3.5 g/dL 3.2-5.0 [facility] Serum or plasma albumin/glob ulin mass ratioOrdered By: Dr. Wu on 12-11-2022 Albumin/Globulin [Mass ratio] 1.1 {ratio} 0.9-2.[address] [facility] Serum or plasma calcium yayo urement (mass/volume)Ordered By: Dr. Wu on 12-11-2022 Calcium [Mass/Vol] 8.6 mg/dL 8.5-10.1 [facility] Serum or plasma creatinine m easurement (mass/volume)Ordered By: Dr. Wu on 12-11-2022 Creatinine [Mass/Vol] 0.93 mg/dL 0.70-1.30 [facility] Comment on above: The validity of the calculated GFR & GFRAA in patients over 70 years has not been determined. Clinical correlation is essential. Serum or plasma urea nitroge n measurement (mass/volume)Ordered By: Dr. Wu on 12-11-2022 Urea nitrogen [Mass/Vol] 8 mg/dL 7-[address] [facility] Squamous epithelial cells de tection in urine sediment by light microscopyOrdered By: Dr. Wu on 12-11-2022 Epithelial cells.squamous LM Ql (Urine sed) 0 SEEN /hpf 0-[address] [facility] Thin prep Papanicolaou smear with manual screeningOrdered By: Dr. uW on 12-11-2022 Thin prep Papanicolaou smear with manual screening 5 U/L 15-[address] [facility] Thin prep Papanicolaou smear with manual screening 7 5-[address] [facility] Urine blood detectionOrdered By: Dr. Wu on 12-11-2022 RBC Ql (U) Negative Negative [facility] RBC Ql (U) 0 SEEN /hpf 0-[address] [facility] Urine clarityOrdered By: Dr. Wu on 12-11-2022 Clarity (U) Clear Clear [facility] Urine color determinationOrd ered By: Dr. Wu on 12-11-2022 Color (U) Yellow Yellow [facility] Urine glucose detectionOrder ed By: Dr. Wu on 12-11-2022 Glucose Ql (U) 1000 mg/dl Normal [facility] Urine leukocyte esterase det ection by dipstickOrdered By: Dr. Wu on 12-11-2022 Leukocyte esterase Test strip Ql (U) Negative Negative [facility] Urine pHOrdered By: Dr. Humaz ya on 12-11-2022 pH (U) 6.0 [pH] 5.0 - 8.[address] [facility] Urine phencyclidine (PCP) de tectionOrdered By: Dr. Wu on 12-11-2022 Phencyclidine Ql (U) Negative < 25 ng/mL [facility] Urine sediment bacteria coun t by microscopy (number/high power field)Ordered By: Dr. Wu on 12-11-2022 Bacteria LM.HPF (Urine sed) [#/Area] 0 /[HPF] None Seen [facility] Urine specific gravity measu rementOrdered By: Dr. Wu on 12-11-2022 Specific gravity (U) [Rel density] 1.015 1.002-1.[address] [facility] Urobilinogen Auto test strip Ql (U)Ordered By: Dr. Wu on 12-11-2022 Urobilinogen Ql (U) Normal mg/dl Normal [facility] Absolute lymphocyte countOrd ered By: Dr. Castillo on 12-10-2022 Lymphocytes Auto (Unsp spec) [#/Vol] 1.79 10*3/uL 0.83-4.[address] [facility] Basophil percentageOrdered B y: Dr. Castillo on 12-10-2022 Basophil percentage 0 SEEN /hpf 0-5 [facility] Basophils/100 WBC (Bld) 0.5 % 0-1 [facility] Chloride [Moles/Vol] 106 mmol/L 98-107 [facility] Eosinophils/100 WBC (Bld) 3.3 % 0-[address] [facility] Glucose [Mass/Vol] 250 mg/dL 74-106 [facility] Comment on above: Glucose result great er than or equal to 200 mg/dLsuggests DIABETES MELLITUS per A.D.A. criteria. Neutrophils (Bld) [#/Vol] 5.0 10*3/uL 2.0-7.[address] [facility] Neutrophils/100 WBC (Bld) 64.8 % 47-[address] [facility] Potassium [Moles/Vol] 3.7 mmol/L 3.5-5.1 [facility] Sodium [Moles/Vol] 141 mmol/L 136-145 [facility] WBC (Bld) [#/Vol] 7.7 10*3/uL 4.4-11.0 [facility] Bilirubin Test strip Ql (U)O rdered By: Dr. Castillo on 12-10-2022 Bilirubin Ql (U) Negative Negative [facility] Blood erythrocytes count (nu mber/volume)Ordered By: Dr. Castillo on 12-10-2022 RBC (Bld) [#/Vol] 5.31 10*6/uL 4.6-6.2 [facility] Blood hemoglobin measurement (mass/volume)Ordered By: Dr. Castillo on 12-10-2022 Hemoglobin (Bld) [Mass/Vol] 15.1 g/dL 13.0-16.[address] [facility] Blood lymphocytes/100 leukoc ytesOrdered By: Dr. Castillo on 12-10-2022 Lymphocytes/100 WBC (Bld) 23.4 % 19-[address] [facility] Blood monocytes/100 leukocyt esOrdered By: Dr. Castillo on 12-10-2022 Monocytes/100 WBC (Bld) 7.3 % 0-10 [facility] Blood platelet mean volumeOr dered By: Dr. Castillo on 12-10-2022 Platelet mean volume (Bld) [Entitic vol] 9.3 fL 6.2-12.[address] [facility] Determination of erythrocyte mean corpuscular volume (MCV)Ordered By: Dr. Castillo on 12-10-2022 MCV (RBC) [Entitic vol] 81.7 fL 80-94 [facility] Glucose Glucometer (BldC) [M ass/Vol]Ordered By: Dr. Castillo on 12-10-2022 Glucose [Mass/Vol] 261 mg/dL 74-106 [facility] Comment on above: MANAGEMENT OF PATIEN T CARE PER NURSING PROTOCOL Hematocrit Auto (Bld) [Volum e fraction]Ordered By: Dr. Castillo on 12-10-2022 Hematocrit (Bld) [Volume fraction] 43.4 % 40-[address] [facility] Ketones Test strip Ql (U)Ord ered By: Dr. Castillo on 12-10-2022 Ketones Ql (U) Negative Negative [facility] Laboratory - Chemistry and C hemistry - challengeOrdered By: Dr. Castillo on 12-10-2022 CO2 [Moles/Vol] 30.0 mmol/L 21.0-32.[address] [facility] Urea nitrogen/Creatinine [Mass ratio] 9.8 mg/mg 10-[address] [facility] Laboratory - Hematology and Cell countsOrdered By: Dr. Castillo on 12-10-2022 Erythrocyte distribution width (RBC) [Entitic vol] 39.1 fL 35.1-43.[address] [facility] Erythrocyte distribution width (RBC) [Ratio] 13.3 % 11.6-14.[address] [facility] Immature granulocytes/100 WBC (Bld) 0.700 % 0.0-0.[address] [facility] Comment on above: IG% - Immature Granu locytes (promyelocytes, myelocytes and metamyelocytes) > 1% indicates that a LEFT SHIFT is Present. MCH (RBC) [Entitic mass] 28.4 pg 27.0-32.[address] [facility] Nucleated RBC/100 WBC (Bld) [Ratio] 0 % 0-[address] [facility] MCHC Auto (RBC) [Mass/Vol]Or dered By: Dr. Castillo on 12-10-2022 MCHC (RBC) [Mass/Vol] 34.8 g/dL 32-36 [facility] Mucus LM Ql (Urine sed)Order ed By: Dr. Castillo on 12-10-2022 Mucus Ql (Urine sed) 0 SEEN /hpf [facility] Nitrite Test strip Ql (U)Ord ered By: Dr. Castillo on 12-10-2022 Nitrite Ql (U) Negative Negative [facility] No Panel InformationOrdered By: Dr. Castillo on 12-10-2022 Estimated Creatinine Clearance Calc 94.63 ml/min [facility] Estimated GFR (MDRD) Amer 95 mL/min >[address] [facility] Comment on above: GFR Calc Estimated GFR (MDRD) Non-Af Amer 79 mL/min >[address] [facility] Comment on above: Non- GFR Calc Platelets bldOrdered By: Dr. Castillo on 12-10-2022 Platelets (Bld) [#/Vol] 251 10*3/uL 150-[address] [facility] Protein Test strip Ql (U)Ord ered By: Dr. Castillo on 12-10-2022 Protein Ql (U) 15 mg/dl Negative [facility] Serum or plasma calcium yayo urement (mass/volume)Ordered By: Dr. Castillo on 12-10-2022 Calcium [Mass/Vol] 9.3 mg/dL 8.5-10.1 [facility] Serum or plasma creatinine m easurement (mass/volume)Ordered By: Dr. Castillo on 12-10-2022 Creatinine [Mass/Vol] 1.02 mg/dL 0.70-1.30 [facility] Comment on above: The validity of the calculated GFR & GFRAA in patients over 70 years has not been determined. Clinical correlation is essential. Serum or plasma urea nitroge n measurement (mass/volume)Ordered By: Dr. Castillo on 12-10-2022 Urea nitrogen [Mass/Vol] 10 mg/dL 7-[address] [facility] Squamous epithelial cells de tection in urine sediment by light microscopyOrdered By: Dr. Castillo on 12-10-2022 Epithelial cells.squamous LM Ql (Urine sed) 0-5 SEEN /hpf 0-[address] [facility] Thin prep Papanicolaou smear with manual screeningOrdered By: Dr. Castillo on 12-10-2022 Thin prep Papanicolaou smear with manual screening 5 5-[address] [facility] Urine blood detectionOrdered By: Dr. Castillo on 12-10-2022 RBC Ql (U) Negative Negative [facility] RBC Ql (U) 0 SEEN /hpf 0-[address] [facility] Urine clarityOrdered By: Dr. Castillo on 12-10-2022 Clarity (U) Sl. Cloudy Clear [facility] Urine color determinationOrd ered By: Dr. Castillo on 12-10-2022 Color (U) Yellow Yellow [facility] Urine glucose detectionOrder ed By: Dr. Castillo on 12-10-2022 Glucose Ql (U) 1000 mg/dl Normal [facility] Urine leukocyte esterase det ection by dipstickOrdered By: Dr. Castillo on 12-10-2022 Leukocyte esterase Test strip Ql (U) Negative Negative [facility] Urine pHOrdered By: Dr. Castillo o n 12-10-2022 pH (U) 6.0 [pH] 5.0 - 8.[address] [facility] Urine sediment bacteria coun t by microscopy (number/high power field)Ordered By: Dr. Castillo on 12-10-2022 Bacteria LM.HPF (Urine sed) [#/Area] 0 /[HPF] None Seen [facility] Urine specific gravity measu rementOrdered By: Dr. Castillo on 12-10-2022 Specific gravity (U) [Rel density] 1.015 1.002-1.[address] [facility] Urobilinogen Auto test strip Ql (U)Ordered By: Dr. Castillo on 12-10-2022 Urobilinogen Ql (U) Normal mg/dl Normal [facility] Basophil percentageOrdered B y: Dr. Calle on 11-25-2022 Chloride [Moles/Vol] 102 mmol/L 98-107 [facility] Glucose [Mass/Vol] 429 mg/dL 74-106 [facility] Comment on above: Glucose result great er than or equal to 200 mg/dLsuggests DIABETES MELLITUS per A.D.A. criteria. Potassium [Moles/Vol] 4.0 mmol/L 3.5-5.1 [facility] Sodium [Moles/Vol] 136 mmol/L 136-145 [facility] Glucose Glucometer (BldC) [M ass/Vol]Ordered By: Dr. Calle on 11-25-2022 Glucose [Mass/Vol] 380 mg/dL 74-106 [facility] Comment on above: MANAGEMENT OF PATIEN T CARE PER NURSING PROTOCOL Laboratory - Chemistry and C hemistry - challengeOrdered By: Dr. Calle on 11-25-2022 CO2 [Moles/Vol] 28.0 mmol/L 21.0-32.[address] [facility] Urea nitrogen/Creatinine [Mass ratio] 11.3 mg/mg 10-[address] [facility] No Panel InformationOrdered By: Dr. Calle on 11-25-2022 Estimated Creatinine Clearance Calc 99.51 ml/min [facility] Estimated GFR (MDRD) Amer 101 mL/min >[address] [facility] Comment on above: GFR Calc Estimated GFR (MDRD) Non-Af Amer 83 mL/min >[address] [facility] Comment on above: Non- GFR Calc Serum or plasma calcium yayo urement (mass/volume)Ordered By: Dr. Calle on 11-25-2022 Calcium [Mass/Vol] 9.0 mg/dL 8.5-10.1 [facility] Serum or plasma creatinine m easurement (mass/volume)Ordered By: Dr. Calle on 11-25-2022 Creatinine [Mass/Vol] 0.97 mg/dL 0.70-1.30 [facility] Comment on above: The validity of the calculated GFR & GFRAA in patients over 70 years has not been determined. Clinical correlation is essential. Serum or plasma urea nitroge n measurement (mass/volume)Ordered By: Dr. Calle on 11-25-2022 Urea nitrogen [Mass/Vol] 11 mg/dL 7-[address] [facility] Thin prep Papanicolaou smear with manual screeningOrdered By: Dr. Calle on 11-25-2022 Thin prep Papanicolaou smear with manual screening 6 5-[address] [facility] Influenza virus A and B and SARS-CoV-2 (COVID-19) Ag panel - Upper respiratory specimOrdered By: Johann Lemons on 10-30-2022 SARS-CoV-2 (COVID-19) RNA IOANA+probe Ql (Resp) [facility] Absolute lymphocyte countOrd ered By: ED PROVIDER on 10-29-2022 Lymphocytes Auto (Unsp spec) [#/Vol] 1.87 10*3/uL 0.83-4.[address] [facility] Basophil percentageOrdered B y: ED PROVIDER on 10-29-2022 Basophils/100 WBC (Bld) 0.3 % 0-1 [facility] Chloride [Moles/Vol] 104 mmol/L 98-107 [facility] Eosinophils/100 WBC (Bld) 2.0 % 0-[address] [facility] Glucose [Mass/Vol] 361 mg/dL 74-106 [facility] Comment on above: Glucose result great er than or equal to 200 mg/dLsuggests DIABETES MELLITUS per A.D.A. criteria. Neutrophils (Bld) [#/Vol] 8.6 10*3/uL 2.0-7.[address] [facility] Neutrophils/100 WBC (Bld) 75.0 % 47-[address] [facility] Potassium [Moles/Vol] 4.0 mmol/L 3.5-5.1 [facility] Sodium [Moles/Vol] 136 mmol/L 136-145 [facility] WBC (Bld) [#/Vol] 11.5 10*3/uL 4.4-11.0 [facility] Blood erythrocytes count (nu mber/volume)Ordered By: ED PROVIDER on 10-29-2022 RBC (Bld) [#/Vol] 5.15 10*6/uL 4.6-6.2 [facility] Blood hemoglobin measurement (mass/volume)Ordered By: ED PROVIDER on 10-29-2022 Hemoglobin (Bld) [Mass/Vol] 14.8 g/dL 13.0-16.[address] [facility] Blood lymphocytes/100 leukoc ytesOrdered By: ED PROVIDER on 10-29-2022 Lymphocytes/100 WBC (Bld) 16.2 % 19-[address] [facility] Blood monocytes/100 leukocyt esOrdered By: ED PROVIDER on 10-29-2022 Monocytes/100 WBC (Bld) 6.2 % 0-10 [facility] [place] Blood platelet mean volumeOr dered By: ED PROVIDER on 10-29-2022 Platelet mean volume (Bld) [Entitic vol] 9.5 fL 6.2-12.[address] [facility] Determination of erythrocyte mean corpuscular volume (MCV)Ordered By: ED PROVIDER on 10-29-2022 MCV (RBC) [Entitic vol] 81.9 fL 80-94 [facility] Hematocrit Auto (Bld) [Volum e fraction]Ordered By: ED PROVIDER on 10-29-2022 Hematocrit (Bld) [Volume fraction] 42.2 % 40-[address] [facility] Laboratory - Chemistry and C hemistry - challengeOrdered By: ED PROVIDER on 10-29-2022 CO2 [Moles/Vol] 26.0 mmol/L 21.0-32.[address] [facility] Urea nitrogen/Creatinine [Mass ratio] 14.8 mg/mg 10-[address] [facility] Laboratory - Chemistry and C hemistry - challengeOrdered By: Johann Lemons on 10-29-2022 Magnesium [Mass/Vol] 1.7 mg/dL 1.6-2.6 [facility] Laboratory - Hematology and Cell countsOrdered By: ED PROVIDER on 10-29-2022 Erythrocyte distribution width (RBC) [Entitic vol] 38.6 fL 35.1-43.[address] [facility] Erythrocyte distribution width (RBC) [Ratio] 13.1 % 11.6-14.[address] [facility] Immature granulocytes/100 WBC (Bld) 0.300 % 0.0-0.[address] [facility] Comment on above: IG% - Immature Granu locytes (promyelocytes, myelocytes and metamyelocytes) > 1% indicates that a LEFT SHIFT is Present. MCH (RBC) [Entitic mass] 28.7 pg 27.0-32.[address] [facility] Nucleated RBC/100 WBC (Bld) [Ratio] 0 % 0-[address] [facility] MCHC Auto (RBC) [Mass/Vol]Or dered By: ED PROVIDER on 10-29-2022 MCHC (RBC) [Mass/Vol] 35.1 g/dL 32-36 [facility] No Panel InformationOrdered By: ED PROVIDER on 10-29-2022 Estimated Creatinine Clearance Calc 83.93 ml/min [facility] Estimated GFR (MDRD) Amer 83 mL/min >[address] [facility] Comment on above: GFR Calc Estimated GFR (MDRD) Non-Af Amer 68 mL/min >[address] [facility] Comment on above: Non- GFR Calc Platelets bldOrdered By: ED PROVIDER on 10-29-2022 Platelets (Bld) [#/Vol] 224 10*3/uL 150-[address] [facility] Serum or plasma calcium yayo urement (mass/volume)Ordered By: ED PROVIDER on 10-29-2022 Calcium [Mass/Vol] 8.9 mg/dL 8.5-10.1 [facility] Serum or plasma creatinine m easurement (mass/volume)Ordered By: ED PROVIDER on 10-29-2022 Creatinine [Mass/Vol] 1.15 mg/dL 0.70-1.30 [facility] Comment on above: The validity of the calculated GFR & GFRAA in patients over 70 years has not been determined. Clinical correlation is essential. Serum or plasma urea nitroge n measurement (mass/volume)Ordered By: ED PROVIDER on 10-29-2022 Urea nitrogen [Mass/Vol] 17 mg/dL 7-[address] [facility] Thin prep Papanicolaou smear with manual screeningOrdered By: ED PROVIDER on 10-29-2022 Thin prep Papanicolaou smear with manual screening 6 -[address] [facility] Absolute lymphocyte countOrd ered By: Dr. Wu on 09-18-2022 Lymphocytes Auto (Unsp spec) [#/Vol] 1.62 10*3/uL 0.83-4.[address] [facility] Basophil percentageOrdered B y: Dr. Wu on 09-18-2022 Basophils/100 WBC (Bld) 0.5 % 0-1 [facility] Bilirubin [Mass/Vol] 0.50 mg/dL 0.20-1.00 [facility] Comment on above: For patients on eltr ombopag therapy, use of Dimension Gilliam TBIL is not recommended. Chloride [Moles/Vol] 106 mmol/L 98-107 [facility] Eosinophils/100 WBC (Bld) 3.5 % 0-[address] [facility] Glucose [Mass/Vol] 262 mg/dL 74-106 [facility] Comment on above: Glucose result great er than or equal to 200 mg/dLsuggests DIABETES MELLITUS per A.D.A. criteria. Neutrophils (Bld) [#/Vol] 5.4 10*3/uL 2.0-7.[address] [facility] Neutrophils/100 WBC (Bld) 68.0 % 47-[address] [facility] Potassium [Moles/Vol] 3.7 mmol/L 3.5-5.1 [facility] Protein [Mass/Vol] 7.1 g/dL 6.4-8.2 [facility] Sodium [Moles/Vol] 137 mmol/L 136-145 [facility] WBC (Bld) [#/Vol] 7.9 10*3/uL 4.4-11.0 [facility] Blood erythrocytes count (nu mber/volume)Ordered By: Dr. Wu on 09-18-2022 RBC (Bld) [#/Vol] 4.87 10*6/uL 4.6-6.2 [facility] Blood hemoglobin measurement (mass/volume)Ordered By: Dr. Wu on 09-18-2022 Hemoglobin (Bld) [Mass/Vol] 14.6 g/dL 13.0-16.[address] [facility] Blood lymphocytes/100 leukoc ytesOrdered By: Dr. Wu on 09-18-2022 Lymphocytes/100 WBC (Bld) 20.4 % 19-[address] [facility] Blood monocytes/100 leukocyt esOrdered By: Dr. Wu on 09-18-2022 Monocytes/100 WBC (Bld) 7.2 % 0-10 [facility] Blood platelet mean volumeOr dered By: Dr. Wu on 09-18-2022 Platelet mean volume (Bld) [Entitic vol] 9.1 fL 6.2-12.[address] [facility] Determination of erythrocyte mean corpuscular volume (MCV)Ordered By: Dr. Wu on 09-18-2022 MCV (RBC) [Entitic vol] 83.2 fL 80-94 [facility] Hematocrit Auto (Bld) [Volum e fraction]Ordered By: Dr. Wu on 09-18-2022 Hematocrit (Bld) [Volume fraction] 40.5 % 40-[address] [facility] Laboratory - Chemistry and C hemistry - challengeOrdered By: Dr. Wu on 09-18-2022 ALP [Catalytic activity/Vol] 75 U/L 45-[address] [facility] ALT [Catalytic activity/Vol] 16 U/L 16-[address] [facility] CO2 [Moles/Vol] 24.0 mmol/L 21.0-32.[address] [facility] Globulin (S) [Mass/Vol] 3.5 g/dL 2.2-4.2 [facility] Lipase [Catalytic activity/Vol] 64 U/L 73-[address] [facility] Urea nitrogen/Creatinine [Mass ratio] 16.3 mg/mg 10-[address] [facility] Laboratory - Hematology and Cell countsOrdered By: Dr. Wu on 09-18-2022 Erythrocyte distribution width (RBC) [Entitic vol] 39.2 fL 35.1-43.[address] [facility] Erythrocyte distribution width (RBC) [Ratio] 13.1 % 11.6-14.[address] [facility] Immature granulocytes/100 WBC (Bld) 0.400 % 0.0-0.[address] [facility] Comment on above: IG% - Immature Granu locytes (promyelocytes, myelocytes and metamyelocytes) > 1% indicates that a LEFT SHIFT is Present. MCH (RBC) [Entitic mass] 30.0 pg 27.0-32.[address] [facility] Nucleated RBC/100 WBC (Bld) [Ratio] 0 % 0-[address] [facility] MCHC Auto (RBC) [Mass/Vol]Or dered By: Dr. Wu on 09-18-2022 MCHC (RBC) [Mass/Vol] 36.0 g/dL 32-36 [facility] No Panel InformationOrdered By: Dr. Wu on 09-18-2022 Estimated Creatinine Clearance Calc 98.49 ml/min [facility] Estimated GFR (MDRD) Amer 100 mL/min >[address] [facility] Comment on above: GFR Calc Estimated GFR (MDRD) Non-Af Amer 82 mL/min >[address] [facility] Comment on above: Non- GFR Calc Ethyl Alcohol Level < 3.0 mg/dL [facility] Comment on above: The serum:whole bloo d ethanol ratio is approximately 1.14and varies slightly with hematocrit. Medical Alcohol reference interval and critical value innon-tolerant individuals; 50 - 100 Impairment 100 Intoxication 100 - 250 Severe Poisoning 250 - 400 Deep/possible fatal coma Platelets bldOrdered By: Dr. Wu on 09-18-2022 Platelets (Bld) [#/Vol] 188 10*3/uL 150-[address] [facility] Serum or plasma albumin yayo urement (mass/volume)Ordered By: Dr. Wu on 09-18-2022 Albumin [Mass/Vol] 3.6 g/dL 3.2-5.0 [facility] Serum or plasma albumin/glob ulin mass ratioOrdered By: Dr. Wu on 09-18-2022 Albumin/Globulin [Mass ratio] 1.0 {ratio} 0.9-2.[address] [facility] Serum or plasma calcium yayo urement (mass/volume)Ordered By: Dr. Wu on 09-18-2022 Calcium [Mass/Vol] 9.1 mg/dL 8.5-10.1 [facility] Serum or plasma creatinine m easurement (mass/volume)Ordered By: Dr. Wu on 09-18-2022 Creatinine [Mass/Vol] 0.98 mg/dL 0.70-1.30 [facility] Comment on above: The validity of the calculated GFR & GFRAA in patients over 70 years has not been determined. Clinical correlation is essential. Serum or plasma urea nitroge n measurement (mass/volume)Ordered By: Dr. Wu on 09-18-2022 Urea nitrogen [Mass/Vol] 16 mg/dL 7-[address] [facility] Thin prep Papanicolaou smear with manual screeningOrdered By: Dr. Wu on 09-18-2022 Thin prep Papanicolaou smear with manual screening 9 U/L 15-[address] [facility] Thin prep Papanicolaou smear with manual screening 7 5-[address] [facility] Absolute lymphocyte countOrd ered By: Dr. Mathew on 08-07-2022 Lymphocytes Auto (Unsp spec) [#/Vol] 1.92 10*3/uL 0.83-4.[address] [facility] Basophil percentageOrdered B y: Dr. Mathew on 08-07-2022 Basophil percentage 0 SEEN /hpf 0-5 [facility] Basophils/100 WBC (Bld) 0.3 % 0-1 [facility] Bilirubin [Mass/Vol] 0.40 mg/dL 0.20-1.00 [facility] Comment on above: For patients on eltr ombopag therapy, use of Dimension Gilliam TBIL is not recommended. Chloride [Moles/Vol] 108 mmol/L 98-107 [facility] Eosinophils/100 WBC (Bld) 3.1 % 0-[address] [facility] Glucose [Mass/Vol] 194 mg/dL 74-106 [facility] Comment on above: Fasting Glucose resu lt greater than or equal to 126 mg/dL suggests DIABETES MELLITUS per A.D.A. criteria. Neutrophils (Bld) [#/Vol] 6.2 10*3/uL 2.0-7.[address] [facility] Neutrophils/100 WBC (Bld) 68.4 % 47-[address] [facility] Potassium [Moles/Vol] 3.6 mmol/L 3.5-5.1 [facility] Protein [Mass/Vol] 7.5 g/dL 6.4-8.2 [facility] Sodium [Moles/Vol] 142 mmol/L 136-145 [facility] WBC (Bld) [#/Vol] 9.1 10*3/uL 4.4-11.0 [facility] Bilirubin Test strip Ql (U)O rdered By: Dr. Mathew on 08-07-2022 Bilirubin Ql (U) Negative Negative [facility] Blood erythrocytes count (nu mber/volume)Ordered By: Dr. Mathew on 08-07-2022 RBC (Bld) [#/Vol] 5.01 10*6/uL 4.6-6.2 [facility] Blood hemoglobin measurement (mass/volume)Ordered By: Dr. Mathew on 08-07-2022 Hemoglobin (Bld) [Mass/Vol] 14.4 g/dL 13.0-16.[address] [facility] Blood lymphocytes/100 leukoc ytesOrdered By: Dr. Mathew on 08-07-2022 Lymphocytes/100 WBC (Bld) 21.1 % 19-[address] [facility] Blood monocytes/100 leukocyt esOrdered By: Dr. Mathew on 08-07-2022 Monocytes/100 WBC (Bld) 6.7 % 0-10 [facility] Blood platelet mean volumeOr dered By: Dr. Mathew on 08-07-2022 Platelet mean volume (Bld) [Entitic vol] 9.5 fL 6.2-12.[address] [facility] Determination of erythrocyte mean corpuscular volume (MCV)Ordered By: Dr. Mathew on 08-07-2022 MCV (RBC) [Entitic vol] 84.0 fL 80-94 [facility] Glucose Glucometer (BldC) [M ass/Vol]Ordered By: Dr. Mathew on 08-07-2022 Glucose [Mass/Vol] 193 mg/dL 74-106 [facility] Comment on above: MANAGEMENT OF PATIEN T CARE PER NURSING PROTOCOL Hematocrit Auto (Bld) [Volum e fraction]Ordered By: Dr. Mathew on 08-07-2022 Hematocrit (Bld) [Volume fraction] 42.1 % 40-[address] [facility] Ketones Test strip Ql (U)Ord ered By: Dr. Mathew on 08-07-2022 Ketones Ql (U) Negative Negative [facility] Laboratory - Chemistry and C hemistry - challengeOrdered By: Dr. Mathew on 08-07-2022 ALP [Catalytic activity/Vol] 77 U/L 45-[address] [facility] ALT [Catalytic activity/Vol] 16 U/L 16-[address] [facility] CO2 [Moles/Vol] 28.0 mmol/L 21.0-32.[address] [facility] Globulin (S) [Mass/Vol] 3.6 g/dL 2.2-4.2 [facility] Urea nitrogen/Creatinine [Mass ratio] 8.7 mg/mg 10-[address] [facility] Laboratory - Hematology and Cell countsOrdered By: Dr. Mathew on 08-07-2022 Erythrocyte distribution width (RBC) [Entitic vol] 42.5 fL 35.1-43.[address] [facility] Erythrocyte distribution width (RBC) [Ratio] 14.0 % 11.6-14.[address] [facility] Immature granulocytes/100 WBC (Bld) 0.400 % 0.0-0.[address] [facility] Comment on above: IG% - Immature Granu locytes (promyelocytes, myelocytes and metamyelocytes) > 1% indicates that a LEFT SHIFT is Present. MCH (RBC) [Entitic mass] 28.7 pg 27.0-32.[address] [facility] Nucleated RBC/100 WBC (Bld) [Ratio] 0 % 0-[address] [facility] MCHC Auto (RBC) [Mass/Vol]Or dered By: Dr. Mathew on 08-07-2022 MCHC (RBC) [Mass/Vol] 34.2 g/dL 32-36 [facility] Mucus LM Ql (Urine sed)Order ed By: Dr. Mathew on 08-07-2022 Mucus Ql (Urine sed) 0 SEEN /hpf [facility] Nitrite Test strip Ql (U)Ord ered By: Dr. Mathew on 08-07-2022 Nitrite Ql (U) Negative Negative [facility] No Panel InformationOrdered By: Dr. Mathew on 08-07-2022 Estimated Creatinine Clearance Calc 104.92 ml/min [facility] Estimated GFR (MDRD) Amer 107 mL/min >[address] [facility] Comment on above: GFR Calc Estimated GFR (MDRD) Non-Af Amer 89 mL/min >[address] [facility] Comment on above: Non- GFR Calc Platelets bldOrdered By: Dr. Mathew on 08-07-2022 Platelets (Bld) [#/Vol] 227 10*3/uL 150-[address] [facility] Protein Test strip Ql (U)Ord ered By: Dr. Mathew on 08-07-2022 Protein Ql (U) Negative Negative [facility] Serum or plasma albumin yayo urement (mass/volume)Ordered By: Dr. Mathew on 08-07-2022 Albumin [Mass/Vol] 3.9 g/dL 3.2-5.0 [facility] Serum or plasma albumin/glob ulin mass ratioOrdered By: Dr. Mathew on 08-07-2022 Albumin/Globulin [Mass ratio] 1.1 {ratio} 0.9-2.[address] [facility] Serum or plasma calcium yayo urement (mass/volume)Ordered By: Dr. Mathew on 08-07-2022 Calcium [Mass/Vol] 9.1 mg/dL 8.5-10.1 [facility] Serum or plasma creatinine m easurement (mass/volume)Ordered By: Dr. Mathew on 08-07-2022 Creatinine [Mass/Vol] 0.92 mg/dL 0.70-1.30 [facility] Comment on above: The validity of the calculated GFR & GFRAA in patients over 70 years has not been determined. Clinical correlation is essential. Serum or plasma urea nitroge n measurement (mass/volume)Ordered By: Dr. Mathew on 08-07-2022 Urea nitrogen [Mass/Vol] 8 mg/dL 7-[address] [facility] Squamous epithelial cells de tection in urine sediment by light microscopyOrdered By: Dr. Mathew on 08-07-2022 Epithelial cells.squamous LM Ql (Urine sed) 0 SEEN /hpf 0-[address] [facility] Thin prep Papanicolaou smear with manual screeningOrdered By: Dr. Mathew on 08-07-2022 Thin prep Papanicolaou smear with manual screening 7 U/L 15-[address] [facility] Thin prep Papanicolaou smear with manual screening 6 5-[address] [facility] Urine blood detectionOrdered By: Dr. Mathew on 08-07-2022 RBC Ql (U) Negative Negative [facility] RBC Ql (U) 0 SEEN /hpf 0-[address] [facility] Urine clarityOrdered By: Dr. Mathew on 08-07-2022 Clarity (U) Clear Clear [facility] Urine color determinationOrd ered By: Dr. Mathew on 08-07-2022 Color (U) Straw Yellow [facility] Urine glucose detectionOrder ed By: Dr. Mathew on 08-07-2022 Glucose Ql (U) Normal mg/dl Normal [facility] Urine leukocyte esterase det ection by dipstickOrdered By: Dr. Mathew on 08-07-2022 Leukocyte esterase Test strip Ql (U) Negative Negative [facility] Urine pHOrdered By: Dr. Sandra aguirre on 08-07-2022 pH (U) 6.0 [pH] 5.0 - 8.[address] [facility] Urine sediment bacteria coun t by microscopy (number/high power field)Ordered By: Dr. Mtahew on 08-07-2022 Bacteria LM.HPF (Urine sed) [#/Area] 0 /[HPF] None Seen [facility] Urine specific gravity measu rementOrdered By: Dr. Mathew on 08-07-2022 Specific gravity (U) [Rel density] 1.010 1.002-1.[address] [facility] Urobilinogen Auto test strip Ql (U)Ordered By: Dr. Mathew on 08-07-2022 Urobilinogen Ql (U) Normal mg/dl Normal [facility] Absolute lymphocyte counton 07-02-2022 Lymphocytes Auto (Unsp spec) [#/Vol] 1.81 10*3/uL 0.83-4.[address] [facility] Work Phone: Basophil percentageon 2021 Basophils/100 WBC (Bld) 0.4 % 0-1 [facility] Work Phone: Chloride [Moles/Vol] 107 mmol/L 98-107 [facility] Work Phone: Eosinophils/100 WBC (Bld) 2.5 % 0-[address] [facility] Work Phone: Glucose [Mass/Vol] 132 mg/dL 74-106 [facility] Work Phone: Comment on above: Fasting Glucose resu lt greater than or equal to 126 mg/dL suggests DIABETES MELLITUS per A.D.A. criteria. Neutrophils (Bld) [#/Vol] 4.9 10*3/uL 2.0-7.[address] [facility] Work Phone: Neutrophils/100 WBC (Bld) 64.6 % 47-[address] [facility] Work Phone: Potassium [Moles/Vol] 3.7 mmol/L 3.5-5.1 [facility] Work Phone: Sodium [Moles/Vol] 142 mmol/L 136-145 [facility] Work Phone: WBC (Bld) [#/Vol] 7.5 10*3/uL 4.4-11.0 [facility] Work Phone: [phone] Basophil percentage 0 SEEN /hpf 0-5 [facility] Work Phone: [phone] Bilirubin Test strip Ql (U)o n 07-02-2022 Bilirubin Ql (U) Negative Negative [facility] Work Phone: Blood erythrocytes count (nu mber/volume)on 07-02-2022 RBC (Bld) [#/Vol] 5.07 10*6/uL 4.6-6.2 [facility] Work Phone: [phone] Blood hemoglobin measurement (mass/volume)on 07-02-2022 Hemoglobin (Bld) [Mass/Vol] 14.5 g/dL 13.0-16.[address] [facility] Work Phone: Blood lymphocytes/100 leukoc yteson 07-02-2022 Lymphocytes/100 WBC (Bld) 24.1 % 19-[address] [facility] Work Phone: Blood monocytes/100 leukocyt eson 07-02-2022 Monocytes/100 WBC (Bld) 8.1 % 0-10 [facility] Work Phone: Blood platelet mean volumeon 07-02-2022 Platelet mean volume (Bld) [Entitic vol] 9.1 fL 6.2-12.[address] [facility] Work Phone: [phone] Determination of erythrocyte mean corpuscular volume (MCV)on 07-02-2022 MCV (RBC) [Entitic vol] 82.6 fL 80-94 [facility] Work Phone: [phone] Hematocrit Auto (Bld) [Volum e fraction]on 07-02-2022 Hematocrit (Bld) [Volume fraction] 41.9 % 40-[address] [facility] Work Phone: [phone] Ketones Test strip Ql (U)on 07-02-2022 Ketones Ql (U) Negative Negative [facility] Work Phone: [phone] Laboratory - Chemistry and C hemistry - challengeon 07-02-2022 CO2 [Moles/Vol] 30.0 mmol/L 21.0-32.[address] [facility] Work Phone: [phone] Urea nitrogen/Creatinine [Mass ratio] 16.1 mg/mg 10-[address] [facility] Work Phone: [phone] Laboratory - Hematology and Cell countson 07-02-2022 Erythrocyte distribution width (RBC) [Entitic vol] 40.1 fL 35.1-43.[address] [facility] Work Phone: [phone] Erythrocyte distribution width (RBC) [Ratio] 13.5 % 11.6-14.[address] [facility] Work Phone: [phone] Immature granulocytes/100 WBC (Bld) 0.300 % 0.0-0.[address] [facility] Work Phone: Comment on above: IG% - Immature Granu locytes (promyelocytes, myelocytes and metamyelocytes) > 1% indicates that a LEFT SHIFT is Present. MCH (RBC) [Entitic mass] 28.6 pg 27.0-32.[address] [facility] Work Phone: Nucleated RBC/100 WBC (Bld) [Ratio] 0 % 0-[address] [facility] Work Phone: MCHC Auto (RBC) [Mass/Vol]on 07-02-2022 MCHC (RBC) [Mass/Vol] 34.6 g/dL 32-36 [facility] Work Phone: Mucus LM Ql (Urine sed)on Mucus Ql (Urine sed) 1+ /hpf [facility] Work Phone: Nitrite Test strip Ql (U)on 07-02-2022 Nitrite Ql (U) Negative Negative [facility] Work Phone: No Panel Informationon 07-02 Estimated Creatinine Clearance Calc 110.95 ml/min [facility] Work Phone: Estimated GFR (MDRD) Amer 114 mL/min >[address] [facility] Work Phone: Comment on above: GFR Calc Estimated GFR (MDRD) Non-Af Amer 94 mL/min >[address] [facility] Work Phone: Comment on above: Non- GFR Calc Platelets bldon 07-02-2022 Platelets (Bld) [#/Vol] 189 10*3/uL 150-[address] [facility] Work Phone: Protein Test strip Ql (U)on 07-02-2022 Protein Ql (U) 15 mg/dl Negative [facility] Work Phone: Serum or plasma calcium yayo urement (mass/volume)on 07-02-2022 Calcium [Mass/Vol] 9.1 mg/dL 8.5-10.1 [facility] Work Phone: Serum or plasma creatinine m easurement (mass/volume)on 07-02-2022 Creatinine [Mass/Vol] 0.87 mg/dL 0.70-1.30 [facility] Work Phone: Comment on above: The validity of the calculated GFR & GFRAA in patients over 70 years has not been determined. Clinical correlation is essential. Serum or plasma urea nitroge n measurement (mass/volume)on 07-02-2022 Urea nitrogen [Mass/Vol] 14 mg/dL 7-[address] [facility] Work Phone: Squamous epithelial cells de tection in urine sediment by light microscopyon 07-02-2022 Epithelial cells.squamous LM Ql (Urine sed) 0-5 SEEN /hpf 0-[address] [facility] Work Phone: Thin prep Papanicolaou smear with manual screeningon 07-02-2022 Thin prep Papanicolaou smear with manual screening 5 5-[address] [facility] Work Phone: Urine blood detectionon RBC Ql (U) Negative Negative [facility] Work Phone: RBC Ql (U) 0 SEEN /hpf 0-[address] [facility] Work Phone: Urine clarityon 07-02-2022 Clarity (U) Clear Clear [facility] Work Phone: Urine color determinationon 07-02-2022 Color (U) Yellow Yellow [facility] Work Phone: Urine glucose detectionon Glucose Ql (U) 100 mg/dl Normal [facility] Work Phone: Urine leukocyte esterase det ection by dipstickon 07-02-2022 Leukocyte esterase Test strip Ql (U) Negative Negative [facility] Work Phone: Urine pHon 07-02-2022 pH (U) 7.0 [pH] 5.0 - 8.[address] [facility] Work Phone: Urine sediment bacteria coun t by microscopy (number/high power field)on 07-02-2022 Bacteria LM.HPF (Urine sed) [#/Area] 1 /[HPF] None Seen [facility] Work Phone: Urine specific gravity measu rementon 07-02-2022 Specific gravity (U) [Rel density] 1.010 1.002-1.[address] [facility] Work Phone: Urobilinogen Auto test strip Ql (U)on 07-02-2022 Urobilinogen Ql (U) 1 mg/dl Normal [facility] Work Phone: Absolute lymphocyte counton 04-26-2022 Lymphocytes Auto (Unsp spec) [#/Vol] 1.44 10*3/uL 0.83-4.[address] [facility] Work Phone: Basophil percentageon 2021 Basophil percentage 0 SEEN /hpf 0-5 [facility] Work Phone: Basophils/100 WBC (Bld) 0.3 % 0-1 [facility] Work Phone: Chloride [Moles/Vol] 109 mmol/L 98-107 [facility] Work Phone: Eosinophils/100 WBC (Bld) 4.3 % 0-[address] [facility] Work Phone: Glucose [Mass/Vol] 121 mg/dL 74-106 [facility] Work Phone: Comment on above: Fasting Glucose resu lt from 100 to 125 mg/dL suggests IMPAIRED HOMEOSTASIS per A.D.A. criteria. Neutrophils (Bld) [#/Vol] 4.4 10*3/uL 2.0-7.[address] [facility] Work Phone: Neutrophils/100 WBC (Bld) 66.3 % 47-[address] [facility] Work Phone: Potassium [Moles/Vol] 3.6 mmol/L 3.5-5.1 [facility] Work Phone: Sodium [Moles/Vol] 142 mmol/L 136-145 [facility] Work Phone: WBC (Bld) [#/Vol] 6.7 10*3/uL 4.4-11.0 [facility] Work Phone: [phone] Bilirubin Test strip Ql (U)o n 04-26-2022 Bilirubin Ql (U) Negative Negative [facility] Work Phone: [phone] Blood erythrocytes count (nu mber/volume)on 04-26-2022 RBC (Bld) [#/Vol] 4.97 10*6/uL 4.6-6.2 [facility] Work Phone: [phone] Blood hemoglobin measurement (mass/volume)on 04-26-2022 Hemoglobin (Bld) [Mass/Vol] 14.1 g/dL 13.0-16.[address] [facility] Work Phone: Blood lymphocytes/100 leukoc yteson 04-26-2022 Lymphocytes/100 WBC (Bld) 21.5 % 19-[address] [facility] Work Phone: Blood monocytes/100 leukocyt eson 04-26-2022 Monocytes/100 WBC (Bld) 7.3 % 0-10 [facility] Work Phone: [phone] Blood platelet mean volumeon 04-26-2022 Platelet mean volume (Bld) [Entitic vol] 9.1 fL 6.2-12.[address] [facility] Work Phone: Determination of erythrocyte mean corpuscular volume (MCV)on 04-26-2022 MCV (RBC) [Entitic vol] 80.7 fL 80-94 [facility] Work Phone: [phone] Hematocrit Auto (Bld) [Volum e fraction]on 04-26-2022 Hematocrit (Bld) [Volume fraction] 40.1 % 40-[address] [facility] Work Phone: [phone] Ketones Test strip Ql (U)on 04-26-2022 Ketones Ql (U) Negative Negative [facility] Work Phone: Laboratory - Chemistry and C hemistry - challengeon 04-26-2022 CO2 [Moles/Vol] 28.0 mmol/L 21.0-32.[address] [facility] Work Phone: Urea nitrogen/Creatinine [Mass ratio] 10.9 mg/mg 10-[address] [facility] Work Phone: Laboratory - Hematology and Cell countson 04-26-2022 Erythrocyte distribution width (RBC) [Entitic vol] 38.6 fL 35.1-43.[address] [facility] Work Phone: Erythrocyte distribution width (RBC) [Ratio] 13.4 % 11.6-14.[address] [facility] Work Phone: Immature granulocytes/100 WBC (Bld) 0.300 % 0.0-0.[address] [facility] Work Phone: Comment on above: IG% - Immature Granu locytes (promyelocytes, myelocytes and metamyelocytes) > 1% indicates that a LEFT SHIFT is Present. MCH (RBC) [Entitic mass] 28.4 pg 27.0-32.[address] [facility] Work Phone: Nucleated RBC/100 WBC (Bld) [Ratio] 0 % 0-[address] [facility] Work Phone: MCHC Auto (RBC) [Mass/Vol]on 04-26-2022 MCHC (RBC) [Mass/Vol] 35.2 g/dL 32-36 [facility] Work Phone: Mucus LM Ql (Urine sed)on Mucus Ql (Urine sed) 0 SEEN /hpf [facility] Work Phone: Nitrite Test strip Ql (U)on 04-26-2022 Nitrite Ql (U) Negative Negative [facility] Work Phone: No Panel Informationon 04-26 Troponin I High Sensitivity 3 pg/mL 3.0-78.[address] [facility] Work Phone: Comment on above: Please Note: New Kira t Units and Gender Specific Reference Ranges. For more information see Policy Stat Procedure Gilliam High Sensitivity Troponin (TNIH) and attachments. Estimated Creatinine Clearance Calc 116.30 ml/min [facility] Work Phone: Estimated GFR (MDRD) Amer 121 mL/min >[address] [facility] Work Phone: Comment on above: GFR Calc Estimated GFR (MDRD) Non-Af Amer 100 mL/min >[address] [facility] Work Phone: Comment on above: Non- GFR Calc Platelets bldon 04-26-2022 Platelets (Bld) [#/Vol] 191 10*3/uL 150-[address] [facility] Work Phone: Protein Test strip Ql (U)on 04-26-2022 Protein Ql (U) Negative Negative [facility] Work Phone: Serum or plasma calcium yayo urement (mass/volume)on 04-26-2022 Calcium [Mass/Vol] 8.8 mg/dL 8.5-10.1 [facility] Work Phone: Serum or plasma creatinine m easurement (mass/volume)on 04-26-2022 Creatinine [Mass/Vol] 0.83 mg/dL 0.70-1.30 [facility] Work Phone: Comment on above: The validity of the calculated GFR & GFRAA in patients over 70 years has not been determined. Clinical correlation is essential. Serum or plasma urea nitroge n measurement (mass/volume)on 04-26-2022 Urea nitrogen [Mass/Vol] 9 mg/dL 7-[address] [facility] Work Phone: Squamous epithelial cells de tection in urine sediment by light microscopyon 04-26-2022 Epithelial cells.squamous LM Ql (Urine sed) 0 SEEN /hpf 0-[address] [facility] Work Phone: Thin prep Papanicolaou smear with manual screeningon 04-26-2022 Thin prep Papanicolaou smear with manual screening 5 5-[address] [facility] Work Phone: Urine blood detectionon - RBC Ql (U) Negative Negative [facility] Work Phone: RBC Ql (U) 0 SEEN /hpf 0-[address] [facility] Work Phone: Urine clarityon 04-26-2022 Clarity (U) Clear Clear [facility] Work Phone: Urine color determinationon 04-26-2022 Color (U) Yellow Yellow [facility] Work Phone: Urine glucose detectionon Glucose Ql (U) Normal mg/dl Normal [facility] Work Phone: Urine leukocyte esterase det ection by dipstickon 04-26-2022 Leukocyte esterase Test strip Ql (U) Negative Negative [facility] Work Phone: Urine pHon 04-26-2022 pH (U) 6.0 [pH] 5.0 - 8.[address] [facility] Work Phone: Urine sediment bacteria coun t by microscopy (number/high power field)on 04-26-2022 Bacteria LM.HPF (Urine sed) [#/Area] 0 /[HPF] None Seen [facility] Work Phone: Urine specific gravity measu rementon 04-26-2022 Specific gravity (U) [Rel density] 1.010 1.002-1.[address] [facility] Work Phone: Urobilinogen Auto test strip Ql (U)on 04-26-2022 Urobilinogen Ql (U) Normal mg/dl Normal [facility] Work Phone: Glucose Glucometer (BldC) [M ass/Vol]on 03-20-2022 Glucose [Mass/Vol] 153 mg/dL 74-106 [facility] Work Phone: Comment on above: MANAGEMENT OF PATIEN T CARE PER NURSING PROTOCOL No Panel Informationon 03-20 D-Dimer Quantitative (PE/DVT) 0.75 FEU/ug/m 0.27-0.[address] [facility] Work Phone: Comment on above: D-Dimer ELEVATED (>0 .49): Additional studies and clinicalassessments are indicated to conclude diagnosis of:Deep Vein Thrombosis (DVT) or Pulmonary Embolism (PE)CRITICAL VALUE VERIFIED. CALLED TO RACIEL JONES03/20/22 0754 Loida Townsend.RESULTS READ BACK BY SAME . Absolute lymphocyte counton 03-19-2022 Lymphocytes Auto (Unsp spec) [#/Vol] 1.56 10*3/uL 0.83-4.[address] [facility] Work Phone: [phone] Assessment of wrist artery p atency prior to arterial punctureon 03-19-2022 Arterial patency Wrist artery --pre arterial puncture Positive [facility] Work Phone: [phone] Base excesson 03-19-2022 Base excess Calc (BldV) [Moles/Vol] 2 mmol/L -2-[address] [facility] Work Phone: Basophil percentageon 2021 Basophil percentage 0-5 SEEN /hpf 0-5 [facility] Work Phone: [phone] Basophil percentage 25.7 mmol/L 22-26 [facility] Work Phone: Basophils/100 WBC (Bld) 92 % 95-99 [facility] Work Phone: Basophils/100 WBC (Bld) 0.5 % 0-1 [facility] Work Phone: [phone] Bilirubin [Mass/Vol] 1.10 mg/dL 0.20-1.00 [facility] Work Phone: [phone] Comment on above: For patients on eltr ombopag therapy, use of Dimension Gilliam TBIL is not recommended. Chloride [Moles/Vol] 106 mmol/L 98-107 [facility] Work Phone: Eosinophils/100 WBC (Bld) 2.4 % 0-[address] [facility] Work Phone: [phone] Glucose [Mass/Vol] 167 mg/dL 74-106 [facility] Work Phone: [phone] Comment on above: Fasting Glucose resu lt greater than or equal to 126 mg/dL suggests DIABETES MELLITUS per A.D.A. criteria. Lactate [Moles/Vol] 1.2 mmol/L 0.4-2.0 [facility] Work Phone: [phone] Neutrophils (Bld) [#/Vol] 7.8 10*3/uL 2.0-7.[address] [facility] Work Phone: Neutrophils/100 WBC (Bld) 74.4 % 47-[address] [facility] Work Phone: Potassium [Moles/Vol] 3.6 mmol/L 3.5-5.1 [facility] Work [facility]: Protein [Mass/Vol] 7.2 g/dL 6.4-8.2 [facility] Work Phone: Sodium [Moles/Vol] 141 mmol/L 136-145 [facility] Work Phone: WBC (Bld) [#/Vol] 10.5 10*3/uL 4.4-11.0 [facility] Work Phone: Bilirubin Test strip Ql (U)o n 03-19-2022 Bilirubin Ql (U) Negative Negative [facility] Work Phone: Blood erythrocytes count (nu mber/volume)on 03-19-2022 RBC (Bld) [#/Vol] 5.05 10*6/uL 4.6-6.2 [facility] Work Phone: Blood hemoglobin measurement (mass/volume)on 03-19-2022 Hemoglobin (Bld) [Mass/Vol] 14.5 g/dL 13.0-16.[address] [facility] Work Phone: Blood lymphocytes/100 leukoc yteson 03-19-2022 Lymphocytes/100 WBC (Bld) 14.9 % 19-[address] [facility] Work Phone: Blood monocytes/100 leukocyt eson 03-19-2022 Monocytes/100 WBC (Bld) 7.3 % 0-10 [facility] Work Phone: Blood platelet mean volumeon 03-19-2022 Platelet mean volume (Bld) [Entitic vol] 9.1 fL 6.2-12.[address] [facility] Work Phone: CO2 (BldA) [Partial pressure ]on 03-19-2022 CO2 (Bld) [Partial pressure] 37.6 mm[Hg] 35-[address] [facility] Work Phone: [phone] Determination of erythrocyte mean corpuscular volume (MCV)on 03-19-2022 MCV (RBC) [Entitic vol] 83.4 fL 80-94 [facility] Work Phone: Hematocrit Auto (Bld) [Volum e fraction]on 03-19-2022 Hematocrit (Bld) [Volume fraction] 42.1 % 40-[address] [facility] Work Phone: INR in Blood by Coagulation assayon 03-19-2022 INR Coag (Bld) [Relative time] 1.1 {INR} [facility] Work Phone: [phone] Ketones Test strip Ql (U)on 03-19-2022 Ketones Ql (U) Negative Negative [facility] Work Phone: [phone] Laboratory - Chemistry and C hemistry - challengeon 03-19-2022 ALP [Catalytic activity/Vol] 68 U/L 45-[address] [facility] Work Phone: ALT [Catalytic activity/Vol] 14 U/L 16-[address] [facility] Work Phone: CO2 [Moles/Vol] 28.0 mmol/L 21.0-32.[address] [facility] Work Phone: [phone] Globulin (S) [Mass/Vol] 3.5 g/dL 2.2-4.2 [facility] Work Phone: [phone] Urea nitrogen/Creatinine [Mass ratio] 16.4 mg/mg 10-[address] [facility] Work Phone: Laboratory - Coagulationon 0 03-19-2022 PT Coag (PPP) [Time] 14.1 s 11.7-14.9 [facility] Work Phone: [phone] Laboratory - Hematology and Cell countson 03-19-2022 Erythrocyte distribution width (RBC) [Entitic vol] 41.2 fL 35.1-43.[address] [facility] Work Phone: [phone] Erythrocyte distribution width (RBC) [Ratio] 13.5 % 11.6-14.[address] [facility] Work Phone: Immature granulocytes/100 WBC (Bld) 0.500 % 0.0-0.[address] [facility] Work Phone: Comment on above: IG% - Immature Granu locytes (promyelocytes, myelocytes and metamyelocytes) > 1% indicates that a LEFT SHIFT is Present. MCH (RBC) [Entitic mass] 28.7 pg 27.0-32.[address] [facility] Work Phone: Nucleated RBC/100 WBC (Bld) [Ratio] 0 % 0-[address] [facility] Work Phone: MCHC Auto (RBC) [Mass/Vol]on 03-19-2022 MCHC (RBC) [Mass/Vol] 34.4 g/dL 32-36 [facility] Work Phone: Mucus LM Ql (Urine sed)on Mucus Ql (Urine sed) 0 SEEN /hpf [facility] Work Phone: Nitrite Test strip Ql (U)on 03-19-2022 Nitrite Ql (U) Negative Negative [facility] Work Phone: No Panel Informationon 03-19 SARS-CoV-2 & FLU Antigen (Rapid) [facility] Work Phone: Blood Gas Sample Site L Radial [facility] Work Phone: Blood Gas Specimen Type ART [facility] Work Phone: Blood Gas Total CO2 27 mmol/L [facility] Work [facility]: Oxygen Delivery Device Room Air [facility] Work Phone: Estimated Creatinine Clearance Calc 88.88 ml/min [facility] Work Phone: Estimated GFR (MDRD) Amer 87 mL/min >[address] [facility] Work Phone: Comment on above: GFR Calc Estimated GFR (MDRD) Non-Af Amer 72 mL/min >[address] [facility] Work Phone: Comment on above: Non- GFR Calc Troponin I High Sensitivity < 3 pg/mL 3.0-78.[address] [facility] Work Phone: Comment on above: Please Note: New Kira t Units and Gender Specific Reference Ranges. For more information see Policy Stat Procedure Gilliam High Sensitivity Troponin (TNIH) and attachments. Oxygen (BldA) [Partial press ure]on 03-19-2022 Oxygen (Bld) [Partial pressure] 62 mmHG 75-[address] [facility] Work Phone: Platelets bldon 03-19-2022 Platelets (Bld) [#/Vol] 278 10*3/uL 150-[address] [facility] Work Phone: Protein Test strip Ql (U)on 03-19-2022 Protein Ql (U) 30 mg/dl Negative [facility] Work Phone: Serum or plasma albumin yayo urement (mass/volume)on 03-19-2022 Albumin [Mass/Vol] 3.7 g/dL 3.2-5.0 [facility] Work Phone: Serum or plasma albumin/glob ulin mass ratioon 03-19-2022 Albumin/Globulin [Mass ratio] 1.1 {ratio} 0.9-2.[address] [facility] Work Phone: Serum or plasma calcium yayo urement (mass/volume)on 03-19-2022 Calcium [Mass/Vol] 9.0 mg/dL 8.5-10.1 [facility] Work Phone: Serum or plasma creatinine m easurement (mass/volume)on 03-19-2022 Creatinine [Mass/Vol] 1.10 mg/dL 0.70-1.30 [facility] Work Phone: Comment on above: The validity of the calculated GFR & GFRAA in patients over 70 years has not been determined. Clinical correlation is essential. Serum or plasma urea nitroge n measurement (mass/volume)on 03-19-2022 Urea nitrogen [Mass/Vol] 18 mg/dL 7-[address] [facility] Work Phone: [phone] Squamous epithelial cells de tection in urine sediment by light microscopyon 03-19-2022 Epithelial cells.squamous LM Ql (Urine sed) 0-5 SEEN /hpf 0-[address] [facility] Work Phone: [phone] Thin prep Papanicolaou smear with manual screeningon 03-19-2022 Thin prep Papanicolaou smear with manual screening 10 U/L 15-[address] [facility] Work Phone: Thin prep Papanicolaou smear with manual screening 7 5-[address] [facility] Work Phone: Urine blood detectionon 03-01 RBC Ql (U) Negative Negative [facility] Work Phone: [phone] RBC Ql (U) 0 SEEN /hpf 0-[address] [facility] Work Phone: [phone] Urine clarityon 03-19-2022 Clarity (U) Clear Clear [facility] Work Phone: [phone] Urine color determinationon 03-19-2022 Color (U) Yellow Yellow [facility] Work Phone: [phone] Urine glucose detectionon Glucose Ql (U) Normal mg/dl Normal [facility] Work Phone: [phone] Urine leukocyte esterase det ection by dipstickon 03-19-2022 Leukocyte esterase Test strip Ql (U) 25 /ul Negative [facility] Work Phone: [phone] Urine pHon 03-19-2022 pH (U) 5.0 [pH] 5.0 - 8.[address] [facility] Work Phone: [phone] Urine sediment bacteria coun t by microscopy (number/high power field)on 03-19-2022 Bacteria LM.HPF (Urine sed) [#/Area] 0 /[HPF] None Seen [facility] Work Phone: [phone] Urine specific gravity measu rementon 03-19-2022 Specific gravity (U) [Rel density] 1.020 1.002-1.[address] [facility] Work Phone: [phone] Urobilinogen Auto test strip Ql (U)on 03-19-2022 Urobilinogen Ql (U) 1 mg/dl [facility] Work [facility]: pH measurementon 03-19-2022 pH (Unsp spec) 7.44 [pH] 7.35-7.[address] [facility] Work Phone: [phone] Absolute lymphocyte counton 03-02-2022 Lymphocytes Auto (Unsp spec) [#/Vol] 1.57 10*3/uL 0.83-4.[address] [facility] Work Phone: [phone] Basophil percentageon 2021 Basophils/100 WBC (Bld) 0.7 % 0-1 [facility] Work Phone: [phone] Bilirubin [Mass/Vol] 0.40 mg/dL 0.20-1.00 [facility] Work Phone: Comment on above: For patients on eltr ombopag therapy, use of Dimension Gilliam TBIL is not recommended. Chloride [Moles/Vol] 108 mmol/L 98-107 [facility] Work Phone: [phone] Eosinophils/100 WBC (Bld) 3.8 % 0-[address] [facility] Work Phone: [phone] Glucose [Mass/Vol] 222 mg/dL 74-106 [facility] Work Phone: [phone] Comment on above: Glucose result great er than or equal to 200 mg/dLsuggests DIABETES MELLITUS per A.D.A. criteria. Neutrophils (Bld) [#/Vol] 4.8 10*3/uL 2.0-7.[address] [facility] Work Phone: [phone] Neutrophils/100 WBC (Bld) 66.5 % 47-[address] [facility] Work Phone: [phone] Potassium [Moles/Vol] 3.5 mmol/L 3.5-5.1 [facility] Work Phone: [phone] Protein [Mass/Vol] 7.2 g/dL 6.4-8.2 [facility] Work Phone: [phone] Sodium [Moles/Vol] 141 mmol/L 136-145 [facility] Work Phone: WBC (Bld) [#/Vol] 7.2 10*3/uL 4.4-11.0 [facility] Work Phone: Blood erythrocytes count (nu mber/volume)on 03-02-2022 RBC (Bld) [#/Vol] 4.75 10*6/uL 4.6-6.2 [facility] Work Phone: Blood hemoglobin measurement (mass/volume)on 03-02-2022 Hemoglobin (Bld) [Mass/Vol] 13.7 g/dL 13.0-16.[address] [facility] Work Phone: Blood lymphocytes/100 leukoc yteson 03-02-2022 Lymphocytes/100 WBC (Bld) 21.9 % 19-[address] [facility] Work Phone: Blood monocytes/100 leukocyt eson 03-02-2022 Monocytes/100 WBC (Bld) 6.8 % 0-10 [facility] Work Phone: Blood platelet mean volumeon 03-02-2022 Platelet mean volume (Bld) [Entitic vol] 9.6 fL 6.2-12.[address] [facility] Work Phone: [phone] Determination of erythrocyte mean corpuscular volume (MCV)on 03-02-2022 MCV (RBC) [Entitic vol] 82.1 fL 80-94 [facility] Work Phone: Hematocrit Auto (Bld) [Volum e fraction]on 03-02-2022 Hematocrit (Bld) [Volume fraction] 39.0 % 40-[address] [facility] Work Phone: [phone] Laboratory - Chemistry and C hemistry - challengeon 03-02-2022 ALP [Catalytic activity/Vol] 69 U/L 45-[address] [facility] Work Phone: ALT [Catalytic activity/Vol] 15 U/L 16-[address] [facility] Work Phone: [phone] CO2 [Moles/Vol] 26.0 mmol/L 21.0-32.[address] [facility] Work Phone: Globulin (S) [Mass/Vol] 3.5 g/dL 2.2-4.2 [facility] Work Phone: Urea nitrogen/Creatinine [Mass ratio] 14.9 mg/mg 10-[address] [facility] Work Phone: Laboratory - Hematology and Cell countson 03-02-2022 Erythrocyte distribution width (RBC) [Entitic vol] 40.8 fL 35.1-43.[address] [facility] Work Phone: Erythrocyte distribution width (RBC) [Ratio] 13.9 % 11.6-14.[address] [facility] Work Phone: Immature granulocytes/100 WBC (Bld) 0.300 % 0.0-0.[address] [facility] [facility] [address] [facility] Work Phone: Comment on above: IG% - Immature Granu locytes (promyelocytes, myelocytes and metamyelocytes) > 1% indicates that a LEFT SHIFT is Present. MCH (RBC) [Entitic mass] 28.8 pg 27.0-32.[address] [facility] Work Phone: Nucleated RBC/100 WBC (Bld) [Ratio] 0 % 0-[address] [facility] Work Phone: MCHC Auto (RBC) [Mass/Vol]on 03-02-2022 MCHC (RBC) [Mass/Vol] 35.1 g/dL 32-36 [facility] Work [facility]: No Panel Informationon 03-02 Estimated Creatinine Clearance Calc 104.00 ml/min [facility] Work Phone: Estimated GFR (MDRD) Amer 105 mL/min >[address] [facility] Work Phone: Comment on above: GFR Calc Estimated GFR (MDRD) Non-Af Amer 86 mL/min >[address] [facility] Work Phone: Comment on above: Non- GFR Calc Platelets bldon 03-02-2022 Platelets (Bld) [#/Vol] 221 10*3/uL 150-[address] [facility] Work Phone: [phone] Serum or plasma albumin yayo urement (mass/volume)on 03-02-2022 Albumin [Mass/Vol] 3.7 g/dL 3.2-5.0 [facility] Work Phone: [phone] Serum or plasma albumin/glob ulin mass ratioon 03-02-2022 Albumin/Globulin [Mass ratio] 1.1 {ratio} 0.9-2.[address] [facility] Work Phone: [phone] Serum or plasma calcium yayo urement (mass/volume)on 03-02-2022 Calcium [Mass/Vol] 8.5 mg/dL 8.5-10.1 [facility] Work Phone: Serum or plasma creatinine m easurement (mass/volume)on 03-02-2022 Creatinine [Mass/Vol] 0.94 mg/dL 0.70-1.30 [facility] Work Phone: Comment on above: The validity of the calculated GFR & GFRAA in patients over 70 years has not been determined. Clinical correlation is essential. Serum or plasma urea nitroge n measurement (mass/volume)on 03-02-2022 Urea nitrogen [Mass/Vol] 14 mg/dL 7-[address] [facility] Work Phone: Thin prep Papanicolaou smear with manual screeningon 03-02-2022 Thin prep Papanicolaou smear with manual screening 8 U/L 15-[address] [facility] Work Phone: Thin prep Papanicolaou smear with manual screening 7 5-[address] [facility] Work Phone: [phone] Absolute lymphocyte counton 01-31-2022 Lymphocytes Auto (Unsp spec) [#/Vol] 1.83 10*3/uL 0.83-4.[address] [facility] Work Phone: Basophil percentageon 2021 Basophils/100 WBC (Bld) 0.4 % 0-1 [facility] Work Phone: [phone] Bilirubin [Mass/Vol] 0.60 mg/dL 0.20-1.00 [facility] Work Phone: [phone] Comment on above: For patients on eltr ombopag therapy, use of Dimension Gilliam TBIL is not recommended. Chloride [Moles/Vol] 108 mmol/L 98-107 [facility] Work Phone: Eosinophils/100 WBC (Bld) 3.9 % 0-[address] [facility] Work Phone: [phone] Glucose [Mass/Vol] 172 mg/dL 74-106 [facility] Work Phone: [phone] Comment on above: Fasting Glucose resu lt greater than or equal to 126 mg/dL suggests DIABETES MELLITUS per A.D.A. criteria. Neutrophils (Bld) [#/Vol] 5.6 10*3/uL 2.0-7.[address] [facility] Work Phone: [phone] Neutrophils/100 WBC (Bld) 66.2 % 47-[address] [facility] Work Phone: [phone] Potassium [Moles/Vol] 3.7 mmol/L 3.5-5.1 [facility] Work Phone: [phone] Protein [Mass/Vol] 7.0 g/dL 6.4-8.2 [facility] Work Phone: [phone] Sodium [Moles/Vol] 140 mmol/L 136-145 [facility] Work Phone: [phone] WBC (Bld) [#/Vol] 8.4 10*3/uL 4.4-11.0 [facility] Work Phone: [phone] Blood erythrocytes count (nu mber/volume)on 01-31-2022 RBC (Bld) [#/Vol] 5.07 10*6/uL 4.6-6.2 [facility] Work Phone: [phone] Blood hemoglobin measurement (mass/volume)on 01-31-2022 Hemoglobin (Bld) [Mass/Vol] 14.5 g/dL 13.0-16.[address] [facility] Work Phone: Blood lymphocytes/100 leukoc yteson 01-31-2022 Lymphocytes/100 WBC (Bld) 21.8 % 19-[address] [facility] Work Phone: Blood monocytes/100 leukocyt eson 01-31-2022 Monocytes/100 WBC (Bld) 7.3 % 0-10 [facility] Work Phone: Blood platelet mean volumeon 01-31-2022 Platelet mean volume (Bld) [Entitic vol] 9.1 fL 6.2-12.[address] [facility] Work Phone: Determination of erythrocyte mean corpuscular volume (MCV)on 01-31-2022 MCV (RBC) [Entitic vol] 80.9 fL 80-94 [facility] Work Phone: Hematocrit Auto (Bld) [Volum e fraction]on 01-31-2022 Hematocrit (Bld) [Volume fraction] 41.0 % 40-[address] [facility] Work Phone: [phone] Laboratory - Chemistry and C hemistry - challengeon 01-31-2022 ALP [Catalytic activity/Vol] 68 U/L 45-[address] [facility] Work Phone: ALT [Catalytic activity/Vol] 14 U/L 16-[address] [facility] Work Phone: [phone] CO2 [Moles/Vol] 26.0 mmol/L 21.0-32.[address] [facility] Work Phone: [phone] Globulin (S) [Mass/Vol] 3.3 g/dL 2.2-4.2 [facility] Work Phone: Urea nitrogen/Creatinine [Mass ratio] 18.0 mg/mg 10-[address] [facility] Work Phone: Laboratory - Hematology and Cell countson 01-31-2022 Erythrocyte distribution width (RBC) [Entitic vol] 39.8 fL 35.1-43.[address] [facility] Work Phone: [phone] Erythrocyte distribution width (RBC) [Ratio] 13.8 % 11.6-14.[address] [facility] Work Phone: Immature granulocytes/100 WBC (Bld) 0.400 % 0.0-0.[address] [facility] Work Phone: Comment on above: IG% - Immature Granu locytes (promyelocytes, myelocytes and metamyelocytes) > 1% indicates that a LEFT SHIFT is Present. MCH (RBC) [Entitic mass] 28.6 pg 27.0-32.[address] [facility] Work Phone: Nucleated RBC/100 WBC (Bld) [Ratio] 0 % 0-[address] [facility] Work Phone: MCHC Auto (RBC) [Mass/Vol]on 01-31-2022 MCHC (RBC) [Mass/Vol] 35.4 g/dL 32-36 [facility] Work Phone: No Panel Informationon 01-31 Estimated Creatinine Clearance Calc 125.34 ml/min [facility] Work Phone: Estimated GFR (MDRD) Amer 131 mL/min >[address] [facility] Work Phone: Comment on above: GFR Calc Estimated GFR (MDRD) Non-Af Amer 108 mL/min >[address] [facility] Work Phone: Comment on above: Non- GFR Calc Platelets bldon 01-31-2022 Platelets (Bld) [#/Vol] 222 10*3/uL 150-[address] [facility] Work Phone: Serum or plasma albumin yayo urement (mass/volume)on 01-31-2022 Albumin [Mass/Vol] 3.7 g/dL 3.2-5.0 [facility] Work Phone: Serum or plasma albumin/glob ulin mass ratioon 01-31-2022 Albumin/Globulin [Mass ratio] 1.1 {ratio} 0.9-2.[address] [facility] Work Phone: Serum or plasma calcium yayo urement (mass/volume)on 01-31-2022 Calcium [Mass/Vol] 8.4 mg/dL 8.5-10.1 [facility] Work Phone: Serum or plasma creatinine m easurement (mass/volume)on 01-31-2022 Creatinine [Mass/Vol] 0.78 mg/dL 0.70-1.30 [facility] Work Phone: Comment on above: The validity of the calculated GFR & GFRAA in patients over 70 years has not been determined. Clinical correlation is essential. Serum or plasma urea nitroge n measurement (mass/volume)on 01-31-2022 Urea nitrogen [Mass/Vol] 14 mg/dL 7-[address] [facility] Work Phone: Thin prep Papanicolaou smear with manual screeningon 01-31-2022 Thin prep Papanicolaou smear with manual screening 13 U/L 15-[address] [facility] Work Phone: Thin prep Papanicolaou smear with manual screening 6 5-[address] [facility] Work Phone: Absolute lymphocyte counton 01-08-2022 Lymphocytes Auto (Unsp spec) [#/Vol] 1.33 10*3/uL 0.83-4.[address] [facility] Work Phone: Basophil percentageon 2021 Basophils/100 WBC (Bld) 0.3 % 0-1 [facility] Work Phone: Bilirubin [Mass/Vol] 0.60 mg/dL 0.20-1.00 [facility] Work Phone: Comment on above: For patients on eltr ombopag therapy, use of Dimension Gilliam TBIL is not recommended. Chloride [Moles/Vol] 104 mmol/L 98-107 [facility] Work Phone: Eosinophils/100 WBC (Bld) 0.5 % 0-[address] [facility] Work Phone: Glucose [Mass/Vol] 294 mg/dL 74-106 [facility] Work Phone: Comment on above: Glucose result great er than or equal to 200 mg/dLsuggests DIABETES MELLITUS per A.D.A. criteria. Neutrophils (Bld) [#/Vol] 8.1 10*3/uL 2.0-7.[address] [facility] Work Phone: Neutrophils/100 WBC (Bld) 80.9 % 47-[address] [facility] Work Phone: Potassium [Moles/Vol] 3.6 mmol/L 3.5-5.1 [facility] Work Phone: Protein [Mass/Vol] 7.6 g/dL 6.4-8.2 [facility] Work Phone: Sodium [Moles/Vol] 135 mmol/L 136-145 [facility] Work Phone: WBC (Bld) [#/Vol] 10.0 10*3/uL 4.4-11.0 [facility] Work Phone: Blood erythrocytes count (nu mber/volume)on 01-08-2022 RBC (Bld) [#/Vol] 5.06 10*6/uL 4.6-6.2 [facility] Work Phone: Blood hemoglobin measurement (mass/volume)on 01-08-2022 Hemoglobin (Bld) [Mass/Vol] 14.6 g/dL 13.0-16.[address] [facility] Work Phone: Blood lymphocytes/100 leukoc yteson 01-08-2022 Lymphocytes/100 WBC (Bld) 13.4 % 19-[address] [facility] Work Phone: Blood monocytes/100 leukocyt eson 01-08-2022 Monocytes/100 WBC (Bld) 4.4 % 0-10 [facility] Work Phone: Blood platelet mean volumeon 01-08-2022 Platelet mean volume (Bld) [Entitic vol] 9.2 fL 6.2-12.[address] [facility] Work Phone: Determination of erythrocyte mean corpuscular volume (MCV)on 01-08-2022 MCV (RBC) [Entitic vol] 81.0 fL 80-94 [facility] Work Phone: Hematocrit Auto (Bld) [Volum e fraction]on 01-08-2022 Hematocrit (Bld) [Volume fraction] 41.0 % 40-[address] [facility] Work Phone: [phone] Laboratory - Chemistry and C hemistry - challengeon 01-08-2022 ALP [Catalytic activity/Vol] 79 U/L 45-[address] [facility] Work Phone: ALT [Catalytic activity/Vol] 16 U/L 16-[address] [facility] Work Phone: [phone] CO2 [Moles/Vol] 25.0 mmol/L 21.0-32.[address] [facility] Work Phone: [phone] Globulin (S) [Mass/Vol] 3.6 g/dL 2.2-4.2 [facility] Work Phone: [phone] Urea nitrogen/Creatinine [Mass ratio] 16.8 mg/mg 10-[address] [facility] Work Phone: [phone] Laboratory - Hematology and Cell countson 01-08-2022 Erythrocyte distribution width (RBC) [Entitic vol] 40.0 fL 35.1-43.[address] [facility] Work Phone: [phone] Erythrocyte distribution width (RBC) [Ratio] 13.9 % 11.6-14.[address] [facility] Work Phone: [phone] Immature granulocytes/100 WBC (Bld) 0.500 % 0.0-0.[address] [facility] Work Phone: [phone] Comment on above: IG% - Immature Granu locytes (promyelocytes, myelocytes and metamyelocytes) > 1% indicates that a LEFT SHIFT is Present. MCH (RBC) [Entitic mass] 28.9 pg 27.0-32.[address] [facility] Work Phone: [phone] Nucleated RBC/100 WBC (Bld) [Ratio] 0 % 0-[address] [facility] Work Phone: [phone] MCHC Auto (RBC) [Mass/Vol]on 01-08-2022 MCHC (RBC) [Mass/Vol] 35.6 g/dL 32-36 [facility] Work Phone: [phone] No Panel Informationon 01-08 Estimated Creatinine Clearance Calc 96.79 ml/min [facility] Work Phone: Estimated GFR (MDRD) Amer 96 mL/min >[address] [facility] Work Phone: Comment on above: GFR Calc Estimated GFR (MDRD) Non-Af Amer 80 mL/min >[address] [facility] Work Phone: Comment on above: Non- GFR Calc Platelets bldon 01-08-2022 Platelets (Bld) [#/Vol] 228 10*3/uL 150-[address] [facility] Work Phone: Serum or plasma albumin yayo urement (mass/volume)on 01-08-2022 Albumin [Mass/Vol] 4.0 g/dL 3.2-5.0 [facility] Work Phone: Serum or plasma albumin/glob ulin mass ratioon 01-08-2022 Albumin/Globulin [Mass ratio] 1.1 {ratio} 0.9-2.[address] [facility] Work Phone: Serum or plasma calcium yayo urement (mass/volume)on 01-08-2022 Calcium [Mass/Vol] 9.3 mg/dL 8.5-10.1 [facility] Work Phone: Serum or plasma creatinine m easurement (mass/volume)on 01-08-2022 Creatinine [Mass/Vol] 1.01 mg/dL 0.70-1.30 [facility] Work Phone: Comment on above: The validity of the calculated GFR & GFRAA in patients over 70 years has not been determined. Clinical correlation is essential. Serum or plasma urea nitroge n measurement (mass/volume)on 01-08-2022 Urea nitrogen [Mass/Vol] 17 mg/dL 7-[address] [facility] Work Phone: Thin prep Papanicolaou smear with manual screeningon 01-08-2022 Thin prep Papanicolaou smear with manual screening 8 U/L 15-[address] [facility] Work Phone: Thin prep Papanicolaou smear with manual screening 6 5-[address] [facility] Work Phone: Absolute lymphocyte counton 01-07-2022 Lymphocytes Auto (Unsp spec) [#/Vol] 2.13 10*3/uL 0.83-4.[address] [facility] Work Phone: Basophil percentageon 2021 Basophils/100 WBC (Bld) 0.3 % 0-1 [facility] Work Phone: Bilirubin [Mass/Vol] 0.60 mg/dL 0.20-1.00 [facility] Work Phone: Comment on above: For patients on eltr ombopag therapy, use of Dimension Gilliam TBIL is not recommended. Chloride [Moles/Vol] 107 mmol/L 98-107 [facility] Work Phone: Eosinophils/100 WBC (Bld) 2.7 % 0-[address] [facility] Work Phone: Glucose [Mass/Vol] 150 mg/dL 74-106 [facility] Work Phone: Comment on above: Fasting Glucose resu lt greater than or equal to 126 mg/dL suggests DIABETES MELLITUS per A.D.A. criteria. Neutrophils (Bld) [#/Vol] 3.5 10*3/uL 2.0-7.[address] [facility] Work Phone: Neutrophils/100 WBC (Bld) 55.6 % 47-[address] [facility] Work Phone: Potassium [Moles/Vol] 3.4 mmol/L 3.5-5.1 [facility] Work Phone: Protein [Mass/Vol] 6.3 g/dL 6.4-8.2 [facility] Work Phone: Sodium [Moles/Vol] 139 mmol/L 136-145 [facility] Work Phone: WBC (Bld) [#/Vol] 6.3 10*3/uL 4.4-11.0 [facility] Work Phone: Blood erythrocytes count (nu mber/volume)on 01-07-2022 RBC (Bld) [#/Vol] 4.65 10*6/uL 4.6-6.2 [facility]: Blood hemoglobin measurement (mass/volume)on 01-07-2022 Hemoglobin (Bld) [Mass/Vol] 13.5 g/dL 13.0-16.[address] [facility] Work Phone: [phone] Blood lymphocytes/100 leukoc yteson 01-07-2022 Lymphocytes/100 WBC (Bld) 33.9 % 19-[address] [facility] Work Phone: [phone] Blood monocytes/100 leukocyt eson 01-07-2022 Monocytes/100 WBC (Bld) 7.2 % 0-10 [facility] Work Phone: Blood platelet mean volumeon 01-07-2022 Platelet mean volume (Bld) [Entitic vol] 9.4 fL 6.2-12.[address] [facility] Work Phone: Determination of erythrocyte mean corpuscular volume (MCV)on 01-07-2022 MCV (RBC) [Entitic vol] 82.2 fL 80-94 [facility] Work Phone: Glucose Glucometer (BldC) [M ass/Vol]on 01-07-2022 Glucose [Mass/Vol] 161 mg/dL 74-106 [facility] Work Phone: Comment on above: MANAGEMENT OF PATIEN T CARE PER NURSING PROTOCOL Hematocrit Auto (Bld) [Volum e fraction]on 01-07-2022 Hematocrit (Bld) [Volume fraction] 38.2 % 40-[address] [facility] Work Phone: Laboratory - Chemistry and C hemistry - challengeon 01-07-2022 ALP [Catalytic activity/Vol] 64 U/L 45-[address] [facility] Work Phone: ALT [Catalytic activity/Vol] 11 U/L 16-[address] [facility] Work Phone: CO2 [Moles/Vol] 27.0 mmol/L 21.0-32.[address] [facility] Work Phone: Globulin (S) [Mass/Vol] 3.1 g/dL 2.2-4.2 [facility] Work Phone: Urea nitrogen/Creatinine [Mass ratio] 12.9 mg/mg 10-[address] [facility] Work Phone: Laboratory - Hematology and Cell countson 01-07-2022 Erythrocyte distribution width (RBC) [Entitic vol] 40.8 fL 35.1-43.[address] [facility] Work Phone: Erythrocyte distribution width (RBC) [Ratio] 13.9 % 11.6-14.[address] [facility] Work Phone: Immature granulocytes/100 WBC (Bld) 0.300 % 0.0-0.[address] [facility] Work Phone: Comment on above: IG% - Immature Granu locytes (promyelocytes, myelocytes and metamyelocytes) > 1% indicates that a LEFT SHIFT is Present. MCH (RBC) [Entitic mass] 29.0 pg 27.0-32.[address] [facility] Work Phone: Nucleated RBC/100 WBC (Bld) [Ratio] 0 % 0-[address] [facility] Work Phone: MCHC Auto (RBC) [Mass/Vol]on 01-07-2022 MCHC (RBC) [Mass/Vol] 35.3 g/dL 32-36 [facility] Work Phone: No Panel Informationon 01-07 Estimated Creatinine Clearance Calc 139.66 ml/min [facility] Work Phone: Estimated GFR (MDRD) Amer 148 mL/min >[address] [facility] Work Phone: Comment on above: GFR Calc Estimated GFR (MDRD) Non-Af Amer 123 mL/min >[address] [facility] Work Phone: Comment on above: Non- GFR Calc Platelets bldon 01-07-2022 Platelets (Bld) [#/Vol] 208 10*3/uL 150-[address] [facility] Work Phone: Serum or plasma albumin yayo urement (mass/volume)on 01-07-2022 Albumin [Mass/Vol] 3.2 g/dL 3.2-5.0 [facility] Work Phone: Serum or plasma albumin/glob ulin mass ratioon 01-07-2022 Albumin/Globulin [Mass ratio] 1.0 {ratio} 0.9-2.[address] [facility] Work Phone: Serum or plasma calcium yayo urement (mass/volume)on 01-07-2022 Calcium [Mass/Vol] 8.4 mg/dL 8.5-10.1 [facility] Work Phone: Serum or plasma creatinine m easurement (mass/volume)on 01-07-2022 Creatinine [Mass/Vol] 0.70 mg/dL 0.70-1.30 [facility] Work Phone: Comment on above: The validity of the calculated GFR & GFRAA in patients over 70 years has not been determined. Clinical correlation is essential. Serum or plasma urea nitroge n measurement (mass/volume)on 01-07-2022 Urea nitrogen [Mass/Vol] 9 mg/dL 7-[address] [facility] Work Phone: Thin prep Papanicolaou smear with manual screeningon 01-07-2022 Thin prep Papanicolaou smear with manual screening 8 U/L 15-[address] [facility] Work Phone: Thin prep Papanicolaou smear with manual screening 5 5-[address] [facility] Work Phone: Erythrocyte sedimentation ra mau 01-05-2022 ESR (Bld) [Velocity] 4 mm/h 0-20 [facility] Work Phone: Serum or plasma C reactive p rotein measurement (mass/volume)on 01-05-2022 CRP [Mass/Vol] mg/L 0.0-3.[address] [facility] Work Phone: Comment on above: C-Reactive Protein ( CRP) provides useful information for thediagnosis, therapy and monitoring of inflammatory processesand associated diseases. For the evaluation of Relative Riskfor Cardiovascular Disease, a High Sensitivity CRP (HSCRP)should be ordered. Thin prep Papanicolaou smear with manual screeningon 01-05-2022 Thin prep Papanicolaou smear with manual screening 192 U/L 87-[address] [facility] Work Phone: Basophil percentageon 2021 Basophil percentage 0 SEEN /hpf 0-[address] [facility] Work Phone: [phone] Lactate [Moles/Vol] 1.1 mmol/L 0.4-2.0 [facility] Work [facility]: Bilirubin Test strip Ql (U)o n 01-04-2022 Bilirubin Ql (U) Negative Negative [facility] Work Phone: Ketones Test strip Ql (U)on 01-04-2022 Ketones Ql (U) 50 mg/dl Negative [facility] Work Phone: Laboratory - Chemistry and C hemistry - challengeon 01-04-2022 Lipase [Catalytic activity/Vol] 38 U/L 73-[address] [facility] Work Phone: Mucus LM Ql (Urine sed)on Mucus Ql (Urine sed) 0 SEEN /hpf [facility] Work Phone: Nitrite Test strip Ql (U)on 01-04-2022 Nitrite Ql (U) Negative Negative [facility] Work Phone: Protein Test strip Ql (U)on 01-04-2022 Protein Ql (U) 15 mg/dl Negative [facility] Work Phone: Squamous epithelial cells de tection in urine sediment by light microscopyon 01-04-2022 Epithelial cells.squamous LM Ql (Urine sed) 0 SEEN /hpf 0-[address] [facility] Work Phone: Urine blood detectionon RBC Ql (U) Negative Negative [facility] Work Phone: [phone] RBC Ql (U) 0 SEEN /hpf 0-[address] [facility] Work Phone: Urine clarityon 01-04-2022 Clarity (U) Clear Clear [facility] Work Phone: Urine color determinationon 01-04-2022 Color (U) Yellow Yellow [facility] Work Phone: Urine glucose detectionon Glucose Ql (U) 1000 mg/dl Normal [facility] Work Phone: Urine leukocyte esterase det ection by dipstickon 01-04-2022 Leukocyte esterase Test strip Ql (U) Negative Negative [facility] Work Phone: Urine pHon 01-04-2022 pH (U) 5.0 [pH] 5.0 - 8.[address] [facility] Work Phone: Urine sediment bacteria coun t by microscopy (number/high power field)on 01-04-2022 Bacteria LM.HPF (Urine sed) [#/Area] 0 /[HPF] None Seen [facility] Work Phone: Urine specific gravity measu rementon 01-04-2022 Specific gravity (U) [Rel density] 1.010 1.002-1.[address] [facility] Work Phone: Urobilinogen Auto test strip Ql (U)on 01-04-2022 Urobilinogen Ql (U) Normal mg/dl Normal [facility] Work Phone: Basophil percentageon 2021 [facility]ophil [facility] Work Phone: Comment on above: Test not performedhe molysis present redraw for k if indicatedPrevious reported result: TNP mmol/LEdited by: VEL on 11/12/21:2008 Chloride [Moles/Vol] 102 mmol/L 98-[address] [facility] Work Phone: Glucose [Mass/Vol] 326 mg/dL 74-106 [facility] Work Phone: Comment on above: Glucose result great er than or equal to 200 mg/dLsuggests DIABETES MELLITUS per A.D.A. criteria. Sodium [Moles/Vol] 135 mmol/L 136-145 [facility] Work Phone: Glucose Glucometer (BldC) [M ass/Vol]on 11-12-2021 Glucose [Mass/Vol] 324 mg/dL 70-110 [facility] Work Phone: Comment on above: MANAGEMENT OF PATIEN T CARE PER NURSING PROTOCOL Laboratory - Chemistry and C hemistry - challengeon 11-12-2021 CO2 [Moles/Vol] 26.0 mmol/L 21.0-32.[address] [facility] Work Phone: Urea nitrogen/Creatinine [Mass ratio] 13.4 mg/mg 10-[address] [facility] Work Phone: No Panel Informationon 11-12 Estimated Creatinine Clearance Calc 119.22 ml/min [facility] Work Phone: Estimated GFR (MDRD) Amer 122 mL/min >[address] [facility] Work Phone: Comment on above: GFR Calc Estimated GFR (MDRD) Non-Af Amer 101 mL/min >[address] [facility] Work Phone: Comment on above: Non- GFR Calc Serum or plasma calcium yayo urement (mass/volume)on 11-12-2021 Calcium [Mass/Vol] 8.6 mg/dL 8.5-10.1 [facility] Work Phone: Serum or plasma creatinine m easurement (mass/volume)on 11-12-2021 Creatinine [Mass/Vol] 0.82 mg/dL 0.70-1.30 [facility] Work Phone: Comment on above: The validity of the calculated GFR & GFRAA in patients over 70 years has not been determined. Clinical correlation is essential. Serum or plasma urea nitroge n measurement (mass/volume)on 11-12-2021 Urea nitrogen [Mass/Vol] 11 mg/dL 7-[address] [facility] Work Phone: Thin prep Papanicolaou smear with manual screeningon 01-13-2022 Thin prep Papanicolaou smear with manual screening 7 5-[address] [facility] Work Phone: Glucose,Bedsideon 10-07-2019 Glucose [Mass/Vol] 240 mg/dL High 70-100 [facility] Comment on above: Result Comment: Test performed by glucose meter. Results may be 10%-15% lower than serum/plasma values. (CLIA ID [id number]) Performed By: #### B MP3, HEMDF #### [address] [address] POCT Glucoseon 10-07-2019 Glucose [Mass/Vol] 240 mg/dL High 70 - 100 mg/dL [place] Comment on above: Test performed by gl ucose meter. Results may be 10%-15% lower than serum/plasma values. (CLIA ID [id number]) Interpretation and review of laboratory results Abnormal [place] Test Performed by [facility], [address] [place] [address] [place] Basic Metabolic Panelon 12-0 Anion gap [Moles/Vol] 7 Normal [facility] Comment on above: Performed By: #### H EMDF, BMP3M, MG3 #### [address] Calcium [Mass/Vol] 9.0 mg/dL Normal 8.4-10.4 [facility] Comment on above: Performed By: #### H EMDF, BMP3M, MG3 #### [address] [address] CO2 [Moles/Vol] 28 mmol/L Normal 22-30 [facility] Comment on above: Performed By: #### H EMDF, BMP3M, MG3 #### [address] [address] Creatinine [Mass/Vol] 0.73 mg/dL Normal 0.52-1.25 [facility] Comment on above: Performed By: #### H EMDF, BMP3M, MG3 #### [facility] [address] [address] GFR/1.73 sq M predicted among blacks MDRD (S/P/Bld) [Vol rate/Area] mL/min/{1.73_m2} Normal >60 [facility] Comment on above: Performed By: #### H EMDF, BMP3M, MG3 #### [facility] [address] [place] [address] GFR/1.73 sq M predicted among non-blacks MDRD (S/P/Bld) [Vol rate/Area] mL/min/{1.73_m2} Normal >60 [facility] Comment on above: Result Comment: Sour ce- MDRD equation with creatinine calibration to IDMS(NKDEP) eGFR not recommended for drug dose adjustment Performed By: #### H EMDLiz, BMP3M, MG3 #### [facility] [address] [place] [address] Glucose [Mass/Vol] 194 mg/dL High 70-100 [facility] Comment on above: Performed By: #### H EMDF, BMP3M, MG3 #### [place] [address] [place] [address] Urea nitrogen [Mass/Vol] 10 mg/dL Normal 7-20 [facility] Comment on above: Performed By: #### H EMDF, BMP3M, MG3 #### [facility] [address] [place] [address] Chloride [Moles/Vol] 105 mmol/L Normal 98-107 [facility] Comment on above: Performed By: #### H EMDF, BMP3M, MG3 #### [facility] [address] [place] [address] Potassium [Moles/Vol] 3.4 mmol/L Low 3.5-5.1 [facility] Comment on above: Performed By: #### H EMDF, BMP3M, MG3 #### [facility] [address] [place] [address] Sodium [Moles/Vol] 140 mmol/L Normal 135-145 [facility] Comment on above: Performed By: #### H EMDF, BMP3M, MG3 #### [address] [address] Basic Metabolic Panel w/ Ref pietro to MGon 10-06-2019 Anion gap [Moles/Vol] 7 mmol/L [place], [place] Calcium [Mass/Vol] 9.0 mg/dL 8.4 - 10. 4 mg/dL [place] Chloride [Moles/Vol] 105 mmol/L 98 - 10 7 mmol/L [place] CO2 [Moles/Vol] 28 mmol/L 22 - 30 mmol/L [place] Creatinine [Mass/Vol] 0.73 mg/dL 0.52 - 1.25 mg/dL [place] EGFR IF NonAfrican [place] >60.0 >60 mL/min [place] Comment on above: Source- MDRD equatio n with creatinine calibration to IDMS(NKDEP) eGFR not recommended for drug dose adjustment GFR/1.73 sq M predicted among blacks MDRD (S/P/Bld) [Vol rate/Area] mL/min/{1.73_m2} >60 mL/min [place] Glucose [Mass/Vol] 194 mg/dL High 70 - 100 mg/dL [place] Potassium [Moles/Vol] 3.4 mmol/L Low 3.5 - 5.1 mmol/L [place] Sodium [Moles/Vol] 140 mmol/L 135 - 145 mmol/L [place] Urea nitrogen [Mass/Vol] 10 mg/dL 7 - 20 mg/dL [place] CBC auto differentialon Absolute Baso # 0.1 10*3/uL 0 - 0.2 10*3/uL [place] Absolute Neut # 4.4 10*3/uL 1.8 - 7 10*3/uL [place] Basophils/100 WBC (Bld) 0.8 % 0 - 2 % [place] Eosinophils (Bld) [#/Vol] 0.2 10*3/uL 0 - 0.5 10*3/uL [place] Eosinophils/100 WBC (Bld) 2.8 % 1 - 6 % [place] Erythrocyte distribution width (RBC) [Ratio] 13.7 % 11.5 - 14.5 % [place] Granulocytes/100 WBC (Bld) 60.0 % 40 - 80 % [place] Hematocrit (Bld) [Volume fraction] 44.1 % 40 - 52 % [place] Hemoglobin (Bld) [Mass/Vol] 15.5 g/dL 13 - 18 g/dL [place] Lymphocytes (Bld) [#/Vol] 2.3 10*3/uL 1 - 4.3 10*3/uL [place] Lymphocytes/100 WBC (Bld) 30.7 % 20 - 40 % [place] MCH (RBC) [Entitic mass] 29.2 pg 26 - 34 pg [place] MCHC (RBC) [Mass/Vol] 35.2 % 32 - 36 % [place] MCV (RBC) [Entitic vol] 82.9 fL 80 - 98 fL [place], [place] Monocytes (Bld) [#/Vol] 0.4 10*3/uL 0 - 0.8 10*3/uL [place] Monocytes/100 WBC (Bld) 5.7 % 2 - 10 % [place] Platelet mean volume (Bld) [Entitic vol] 7.5 fL 7.4 - 10.4 fL [place] Platelets (Bld) [#/Vol] 196 10*3/uL 140 - 440 10*3/uL [place] RBC (Bld) [#/Vol] 5.32 10*6/uL 4.4 - 5.9 10*6/uL [place] WBC (Bld) [#/Vol] 7.4 10*3/uL 3.6 - 10.7 10*3/uL [place] Test Performed by [facility], [address] [place] [address] [place] Glucose,Bedsideon 10-06-2019 Glucose [Mass/Vol] 257 mg/dL High 70-100 [facility] Comment on above: Result Comment: Test performed by glucose meter. Results may be 10%-15% lower than serum/plasma values. (CLIA ID [id number]) Performed By: #### B MP3, HEMDF #### [place] [facility] [address] [place] [address] Glucose [Mass/Vol] 288 mg/dL [address] Comment on above: Result Comment: Test performed by glucose meter. Results may be 10%-15% lower than serum/plasma values. (CLIA ID [id number]) Performed By: #### B MP3, HEMDF #### [place] [facility] [address] [place] [address] Glucose [Mass/Vol] 198 mg/dL [address] Comment on above: Result Comment: Test performed by glucose meter. Results may be 10%-15% lower than serum/plasma values. (CLIA ID [id number]) Performed By: #### B GLU #### [place] [address] [place] [address] Glucose [Mass/Vol] 226 mg/dL [address] Comment on above: Result Comment: Test performed by glucose meter. Results may be 10%-15% lower than serum/plasma values. (CLIA ID [id number]) Performed By: #### B GLU #### [facility] [place] [address] Glucose [Mass/Vol] 207 mg/dL [address] Comment on above: Result Comment: Test performed by glucose meter. Results may be 10%-15% lower than serum/plasma values. (CLIA ID [id number]) Performed By: #### B GLU #### [place] [facility] [address] [place] [address] Glucose [Mass/Vol] 200 mg/dL [address] Comment on above: Result Comment: Test performed by glucose meter. Results may be 10%-15% lower than serum/plasma values. (CLIA ID [id number]) Performed By: #### B GLU #### [place] [address] [address] [place], [place] Hemogram w/ Autodiffon 10-06 Abs Baso Cnt 0.1 10*3/uL Normal 0.0-0.2 [facility] Comment on above: Performed By: #### H EMDF, BMP3M, MG3 #### [address] [address] [place], [place] Abs Neutrophile Cnt 4.4 10*3/uL Normal 1.8-7.0 [facility] Comment on above: Performed By: #### H EMDF, BMP3M, MG3 #### [address] [address] [address] [place], [place] Basophils/100 WBC (Bld) 0.8 % Normal 0.0-2.0 [facility] Comment on above: Performed By: #### H EMDF, BMP3M, MG3 #### [place] [address] [address] [place], [place] Eosinophils (Bld) [#/Vol] 0.2 10*3/uL Normal 0.0-0.5 [facility] Comment on above: Performed By: #### H EMDF, BMP3M, MG3 #### [place] [address] [place] Eosinophils/100 WBC (Bld) 2.8 % Normal 1.0-6.0 [facility] Comment on above: Performed By: #### H EMDF, BMP3M, MG3 #### [place] [address] [address] [place], [place] Erythrocyte distribution width (RBC) [Ratio] 13.7 % Normal 11.5-14.5 [facility] Comment on above: Performed By: #### H EMDF, BMP3M, MG3 #### [address] Granulocytes/100 WBC (Bld) 60.0 % Normal 40.0-80.0 [facility] Comment on above: Performed By: #### H EMDF, BMP3M, MG3 #### [place] [address] [place] Hematocrit (Bld) [Volume fraction] 44.1 % Normal 40.0-52.0 [facility] Comment on above: Performed By: #### H EMDF, BMP3M, MG3 #### [place] [address] [place], [place] Hemoglobin (Bld) [Mass/Vol] 15.5 g/dL Normal 13.0-18.0 [facility] Comment on above: Performed By: #### H EMDF, BMP3M, MG3 #### [place] [address] [place], [place] Lymphocytes (Bld) [#/Vol] 2.3 10*3/uL Normal 1.0-4.3 [facility] Comment on above: Performed By: #### H EMDF, BMP3M, MG3 #### [address] Lymphocytes/100 WBC (Bld) 30.7 % Normal 20.0-40.0 [facility] Comment on above: Performed By: #### H EMDF, BMP3M, MG3 #### [address] MCH (RBC) [Entitic mass] 29.2 pg Normal 26.0-34.0 [facility] Comment on above: Performed By: #### H EMDF, BMP3M, MG3 #### [address] MCHC (RBC) [Mass/Vol] 35.2 % Normal 32.0-36.0 [facility] Comment on above: Performed By: #### H EMDF, BMP3M, MG3 #### [address] MCV (RBC) [Entitic vol] 82.9 fL Normal 80.0-98.0 [facility] Comment on above: Performed By: #### H EMDF, BMP3M, MG3 #### [place] [address] [place], [place] Monocytes (Bld) [#/Vol] 0.4 10*3/uL Normal 0.0-0.8 [facility] Comment on above: Performed By: #### H EMDF, BMP3M, MG3 #### [place] [address] [address] [place], [place] Monocytes/100 WBC (Bld) 5.7 % Normal 2.0-10.0 [facility] Comment on above: Performed By: #### H EMDF, BMP3M, MG3 #### [place] [address] [address] [place], [place] Platelet mean volume (Bld) [Entitic vol] 7.5 fL Normal 7.4-10.4 [facility] Comment on above: Performed By: #### H EMDF, BMP3M, MG3 #### [place] [address] [address] [place], [place] Platelets (Bld) [#/Vol] 196 10*3/uL Normal 140-440 [facility] Comment on above: Performed By: #### H EMDF, BMP3M, MG3 #### [place] [address] [address] [place], [place] RBC (Bld) [#/Vol] 5.32 10*6/uL Normal 4.40-5.90 [facility] Comment on above: Performed By: #### H EMDF, BMP3M, MG3 #### [place] [address] [address] [place], [place] WBC (Bld) [#/Vol] 7.4 10*3/uL Normal 3.6-10.7 [facility] Comment on above: Performed By: #### H EMDF, BMP3M, MG3 #### [place] [address] [address] [place], [place] Magnesiumon 10-06-2019 Magnesium [Mass/Vol] 1.5 mg/dL Low 1.6-2.3 [facility] Comment on above: Performed By: #### H EMDF, BMP3M, MG3 #### [place] [address] [address] [place], [place] Magnesium [Mass/Vol] 1.5 mg/dL Low 1.6 - 2 .3 mg/dL [facility] [place] Otheron 10-06-2019 Interpretation and review of laboratory results Abnormal [facility] [place] Test Performed by [facility], [address] [place] [address] [facility] POCT Glucoseon 10-06-2019 Glucose [Mass/Vol] 257 mg/dL High 70 - 100 mg/dL [facility] Comment on above: Test performed by gl ucose meter. Results may be 10%-15% lower than serum/plasma values. (CLIA ID [id number]) Interpretation and review of laboratory results Abnormal [facility] [place] Test Performed by [facility], [address] [place] [address] [facility] Glucose [Mass/Vol] 288 mg/dL High 70 - 100 mg/dL [facility] Comment on above: Test performed by gl ucose meter. Results may be 10%-15% lower than serum/plasma values. (CLIA ID [id number]) Interpretation and review of laboratory results Abnormal [facility] Test Performed by [facility], [address] [place] [address] [facility] Glucose [Mass/Vol] 198 mg/dL High 70 - 100 mg/dL [facility] Comment on above: Test performed by gl ucose meter. Results may be 10%-15% lower than serum/plasma values. (CLIA ID [id number]) Interpretation and review of laboratory results Abnormal [facility] [place] Test Performed by [facility], [address] [place] [address] [facility] Glucose [Mass/Vol] 226 mg/dL High 70 - 100 mg/dL [facility] Comment on above: Test performed by gl ucose meter. Results may be 10%-15% lower than serum/plasma values. (CLIA ID [id number]) Interpretation and review of laboratory results Abnormal [facility] [place] Test Performed by [facility], [address]], [place] [address] [facility] Glucose [Mass/Vol] 207 mg/dL High 70 - 100 mg/dL [facility] [place] Comment on above: Test performed by gl ucose meter. Results may be 10%-15% lower than serum/plasma values. (CLIA ID [id number]) Interpretation and review of laboratory results Abnormal [facility] Test Performed by [facility], [address] [place] [address] [facility] [place] Glucose [Mass/Vol] 200 mg/dL High 70 - 100 mg/dL [facility] Comment on above: Test performed by ucose meter. Results may be 10%-15% lower than serum/plasma values. (CLIA ID [id number]) Interpretation and review of laboratory results Abnormal [facility] Test Performed by [facility], [address] [place] [address] [facility], [place] Surgical Pathologyon 019 Surgical Pathology [id number] [facility] PATHOLOGY AND LABORATORY MEDICINE [address] [place], [place] [id number] FINAL SURGICAL PATHOLOGY REPORT ___ NAME: JERALD YODER : 1960 59 Y M BILLING NO.: [id number] LOCATION: [facility] PROCEDURE 10/06/2019 DATE: SURGEON: BECCA RAMIREZ MD [...] characteristics determined by the clinical laboratories of [facility]. They have not been cleared by [...] negativity on decalcified specimens. Professional Performing Location: [address] [address]. DEPARTMENT OF PATHOLOGY AND LABORATORY MEDICINE [place], [place] [address] Normal [facility] Basic Metabolic Panelon 12-0 Anion gap [Moles/Vol] 9 Normal [facility] Comment on above: Performed By: #### B MP3, HEMDF #### [address] [address] [place] [address] Calcium [Mass/Vol] 9.3 mg/dL Normal 8.4-10.4 [facility] Comment on above: Performed By: #### B MP3, HEMDF #### [facility] [address] [place], [place] CO2 [Moles/Vol] 24 mmol/L Normal 22-30 [facility] Comment on above: Performed By: #### B MP3, HEMDF #### [facility] [address] [place], [place] Glucose [Mass/Vol] 317 mg/dL High 70-100 [facility] Comment on above: Performed By: #### B MP3, HEMDF #### [facility] [address] [place], [place] Urea nitrogen [Mass/Vol] 11 mg/dL Normal 7-20 [facility] Comment on above: Performed By: #### B MP3, HEMDF #### [facility] [address] [place], [place] Creatinine [Mass/Vol] 0.71 mg/dL Normal 0.52-1.25 [facility] Comment on above: Performed By: #### B MP3, HEMDF #### [facility] [address] [place], [place] GFR/1.73 sq M predicted among blacks MDRD (S/P/Bld) [Vol rate/Area] mL/min/{1.73_m2} Normal >60 [facility] Comment on above: Performed By: #### B MP3, HEMDF #### [facility] [address] [place], [place] GFR/1.73 sq M predicted among non-blacks MDRD (S/P/Bld) [Vol rate/Area] mL/min/{1.73_m2} Normal >60 [facility] Comment on above: Result Comment: Sour ce- MDRD equation with creatinine calibration to IDMS(NKDEP) eGFR not recommended for drug dose adjustment Performed By: #### B MP3, HEMDF #### [facility] [address] [place], [place] Chloride [Moles/Vol] 104 mmol/L Normal 98-107 [facility] Comment on above: Performed By: #### B MP3, HEMDF #### [facility] [address] [place] [address] Potassium [Moles/Vol] 4.1 mmol/L Normal 3.5-5.1 [facility] Comment on above: Performed By: #### B MP3, HEMDF #### [facility] [address] [place], [place] Sodium [Moles/Vol] 137 mmol/L Normal 135-145 [facility] Comment on above: Performed By: #### B MP3, HEMDF #### [facility] [address] [place], [place] Anion gap [Moles/Vol] 9 mmol/L [place], [place] Calcium [Mass/Vol] 9.3 mg/dL 8.4 - 10. 4 mg/dL [place] Chloride [Moles/Vol] 104 mmol/L 98 - 10 7 mmol/L [place] CO2 [Moles/Vol] 24 mmol/L 22 - 30 mmol/L [place] Creatinine [Mass/Vol] 0.71 mg/dL 0.52 - 1.25 mg/dL [place] EGFR IF NonAfrican [place] >60.0 >60 mL/min [place] Comment on above: Source- MDRD equatio n with creatinine calibration to IDMS(NKDEP) eGFR not recommended for drug dose adjustment GFR/1.73 sq M predicted among blacks MDRD (S/P/Bld) [Vol rate/Area] mL/min/{1.73_m2} >60 mL/min [place] Glucose [Mass/Vol] 317 mg/dL High 70 - 100 mg/dL [place] Interpretation and review of laboratory results Abnormal [place] Potassium [Moles/Vol] 4.1 mmol/L 3.5 - 5.1 mmol/L [place] Sodium [Moles/Vol] 137 mmol/L 135 - 145 mmol/L [place] Urea nitrogen [Mass/Vol] 11 mg/dL 7 - 20 mg/dL [place] Test Performed by [facility], [address] [place] [address], [place] [address] [place] CBC Auto Differentialon 12-0 Absolute Baso # 0.0 10*3/uL 0 - 0.2 10*3/uL [place] Absolute Neut # 3.9 10*3/uL 1.8 - 7 10*3/uL [place] Basophils/100 WBC (Bld) 0.7 % 0 - 2 % [place] Eosinophils (Bld) [#/Vol] 0.2 10*3/uL 0 - 0.5 10*3/uL [place] Eosinophils/100 WBC (Bld) 2.6 % 1 - 6 % [place] Erythrocyte distribution width (RBC) [Ratio] 13.5 % 11.5 - 14.5 % [place] Granulocytes/100 WBC (Bld) 62.2 % 40 - 80 % [place] Hematocrit (Bld) [Volume fraction] 42.8 % 40 - 52 % [place] Hemoglobin (Bld) [Mass/Vol] 15.0 g/dL 13 - 18 g/dL [place] Lymphocytes (Bld) [#/Vol] 1.7 10*3/uL 1 - 4.3 10*3/uL [place] Lymphocytes/100 WBC (Bld) 27.4 % 20 - 40 % [place] MCH (RBC) [Entitic mass] 28.8 pg 26 - 34 pg [place] MCHC (RBC) [Mass/Vol] 35.1 % 32 - 36 % [place] MCV (RBC) [Entitic vol] 82.3 fL 80 - 98 fL [place], [place] Monocytes (Bld) [#/Vol] 0.4 10*3/uL 0 - 0.8 10*3/uL [place] Monocytes/100 WBC (Bld) 7.1 % 2 - 10 % [place] Platelet mean volume (Bld) [Entitic vol] 7.4 fL 7.4 - 10.4 fL [place] Platelets (Bld) [#/Vol] 162 10*3/uL 140 - 440 10*3/uL [place] RBC (Bld) [#/Vol] 5.20 10*6/uL 4.4 - 5.9 10*6/uL [place] WBC (Bld) [#/Vol] 6.2 10*3/uL 3.6 - 10.7 10*3/uL [place] Test Performed by [facility], [address] [place], [place] [id number] [place] [address] Glucose,Bedsideon 10-05-2019 Glucose [Mass/Vol] 214 mg/dL High 70-100 [facility] Comment on above: Result Comment: Test performed by glucose meter. Results may be 10%-15% lower than serum/plasma values. (CLIA ID [id number]) Performed By: #### B GLU #### [address] [place] [address] [place], [place] Hemogram w/ Autodiffon 10-05 Abs Baso Cnt 0.0 10*3/uL Normal 0.0-0.2 [facility] Comment on above: Performed By: #### B MP3, HEMDF #### [address] Abs Neutrophile Cnt 3.9 10*3/uL Normal 1.8-7.0 [facility] Comment on above: Performed By: #### B MP3, HEMDF #### [address] Basophils/100 WBC (Bld) 0.7 % Normal 0.0-2.0 [facility] Comment on above: Performed By: #### B MP3, HEMDF #### [address] Eosinophils (Bld) [#/Vol] 0.2 10*3/uL Normal 0.0-0.5 [facility] Comment on above: Performed By: #### B MP3, HEMDF #### [address] [place] [address] Eosinophils/100 WBC (Bld) 2.6 % Normal 1.0-6.0 [facility] Comment on above: Performed By: #### B MP3, HEMDF #### [place] [place] [place] [place] Erythrocyte distribution width (RBC) [Ratio] 13.5 % Normal 11.5-14.5 [facility] Comment on above: Performed By: #### B MP3, HEMDF #### [place] [address] [place] [place], [place] Granulocytes/100 WBC (Bld) 62.2 % Normal 40.0-80.0 [facility] Comment on above: Performed By: #### B MP3, HEMDF #### [place] [place] [address] [place] Hematocrit (Bld) [Volume fraction] 42.8 % Normal 40.0-52.0 [facility] Comment on above: Performed By: #### B MP3, HEMDF #### [place] [address] [place] [place] Hemoglobin (Bld) [Mass/Vol] 15.0 g/dL Normal 13.0-18.0 [facility] Comment on above: Performed By: #### B MP3, HEMDF #### [place] [address] [place], [place] Lymphocytes (Bld) [#/Vol] 1.7 10*3/uL Normal 1.0-4.3 [facility] Comment on above: Performed By: #### B MP3, HEMDF #### [address] [place] [address] Lymphocytes/100 WBC (Bld) 27.4 % Normal 20.0-40.0 [facility] Comment on above: Performed By: #### B MP3, HEMDF #### [place] [address] [place] MCH (RBC) [Entitic mass] 28.8 pg Normal 26.0-34.0 [facility] Comment on above: Performed By: #### B MP3, HEMDF #### [facility] [address] [place], [place] MCHC (RBC) [Mass/Vol] 35.1 % Normal 32.0-36.0 [facility] Comment on above: Performed By: #### B MP3, HEMDF #### [facility] [address] [place], [place] MCV (RBC) [Entitic vol] 82.3 fL Normal 80.0-98.0 [facility] Comment on above: Performed By: #### B MP3, HEMDF #### [facility] [address] [place], [place] Monocytes (Bld) [#/Vol] 0.4 10*3/uL Normal 0.0-0.8 [facility] Comment on above: Performed By: #### B MP3, HEMDF #### [place] [address] [place], [place] Monocytes/100 WBC (Bld) 7.1 % Normal 2.0-10.0 [facility] Comment on above: Performed By: #### B MP3, HEMDF #### [place] [address] [place], [place] Platelet mean volume (Bld) [Entitic vol] 7.4 fL Normal 7.4-10.4 [facility] Comment on above: Performed By: #### B MP3, HEMDF #### [facility] [address] [place], [place] Platelets (Bld) [#/Vol] 162 10*3/uL Normal 140-440 [facility] Comment on above: Performed By: #### B MP3, HEMDF #### [place] [address] [place], [place] RBC (Bld) [#/Vol] 5.20 10*6/uL Normal 4.40-5.90 [facility] Comment on above: Performed By: #### B MP3, HEMDF #### [place] [address] [place], [place] WBC (Bld) [#/Vol] 6.2 10*3/uL Normal 3.6-10.7 [facility] Comment on above: Performed By: #### B MP3, HEMDF #### [address] [address] POCT Glucoseon 10-05-2019 Glucose [Mass/Vol] 214 mg/dL High 70 - 100 mg/dL [place] Comment on above: Test performed by gl ucose meter. Results may be 10%-15% lower than serum/plasma values. (CLIA ID [id number]) Interpretation and review of laboratory results Abnormal [place] Test Performed by [facility], [address] [place] [address] [place] Culture, urine Bacteria identified Cx Nom (U) Culture exhibits no growth. [facility] Work Phone: Laboratory - Microbiology an d Antimicrobial susceptibility Bacteria identified Cx Nom (Bld) No growth in [address] [facility] Work Phone: No Panel Information SARS-CoV-2 & FLU Antigen (Rapid) [facility] Work Phone: Vital Signs Date Time Vital Sign Value Performing Clinician Facility 05-22-2025 12:32-0400 Body temperature 97.8 [degF] No Primary Care Physician [facility] 05-22-2025 12:32-0400 Diastolic blood pressure 76 mm[Hg] No Primary Care Physician [facility] 05-22-2025 12:32-0400 Heart rate 66 /min No Primary Care Physician [facility] 05-22-2025 12:32-0400 Respiratory rate 18 /min No Primary Care Physician [facility] 05-22-2025 12:32-0400 SaO2% (BldA) [Mass fraction] 99 % No Primary Care Physician [facility] 05-22-2025 12:32-0400 Systolic blood pressure 129 mm[Hg] No Primary Care Physician [facility] 05-22-2025 07:03-0400 Body height 195.58 cm No Primary Care Physician [facility] 05-22-2025 07:03-0400 Body mass index (BMI) [Ratio] 26.6 kg/m2 No Primary Care Physician [facility] 05-22-2025 07:03-0400 Body weight 101.87 kg No Primary Care Physician [facility] 05-03-2025 14:16-0400 Body temperature 98 [degF] No Primary Care Physician [facility] 05-03-2025 14:16-0400 Diastolic blood pressure 77 mm[Hg] No Primary Care Physician [facility] 05-03-2025 14:16-0400 Heart rate 78 /min No Primary Care Physician [facility] 05-03-2025 14:16-0400 Respiratory rate 16 /min No Primary Care Physician [facility] 05-03-2025 14:16-0400 SaO2% (BldA) [Mass fraction] 97 % No Primary Care Physician [facility] 05-03-2025 14:16-0400 Systolic blood pressure 119 mm[Hg] No Primary Care Physician [facility] 05-03-2025 11:30-0400 Body mass index (BMI) [Ratio] 25.2 kg/m2 No Primary Care Physician [facility] 05-03-2025 11:30-0400 Body weight 96.4 kg No Primary Care Physician [facility] 05-03-2025 11:28-0400 Body height 195.58 cm No Primary Care Physician [facility] 04-21-2025 13:00-0400 Body temperature 97.1 [degF] No Primary Care Physician [facility] 04-21-2025 13:00-0400 Diastolic blood pressure 66 mm[Hg] No Primary Care Physician [facility] 04-21-2025 13:00-0400 Heart rate 64 /min No Primary Care Physician [facility] 04-21-2025 13:00-0400 Respiratory rate 14 /min No Primary Care Physician [facility] 04-21-2025 13:00-0400 SaO2% (BldA) [Mass fraction] 99 % No Primary Care Physician [facility] 04-21-2025 13:00-0400 Systolic blood pressure 141 mm[Hg] No Primary Care Physician [facility] 04-21-2025 10:51-0400 Body height 195.58 cm No Primary Care Physician [facility] 03-26-2025 21:56-0400 Body mass index (BMI) [Ratio] 25.2 kg/m2 Dr. Pedro Krishnan DO Work Phone: [facility] 03-26-2025 21:56-0400 Body weight 96.[address] Pedro Krishnan DO Work Phone: [facility] 03-26-2025 20:09-0400 Body height 195.[address] Pedro Krishnan DO Work Phone: [facility] 03-26-2025 20:09-0400 Body temperature 97.6 [degF] Dr. Pedro Krishnan DO Work Phone: [facility] 03-26-2025 20:09-0400 Diastolic blood pressure 76 mm[Hg] Dr. Pedro Krishnan DO Work Phone: [facility] 03-26-2025 20:09-0400 Heart rate 71 /min Dr. Pedro Krishnan DO Work Phone: [facility] 03-26-2025 20:09-0400 Respiratory rate 18 /min Dr. Pedro Krishnan DO Work Phone: [facility] 03-26-2025 20:09-0400 SaO2% (BldA) [Mass fraction] 99 % Dr. Pedro Krishnan DO Work Phone: [facility] 03-26-2025 20:09-0400 Systolic blood pressure 146 mm[Hg] Dr. Pedro Krishnan DO Work Phone: [facility] 02-16-2025 07:41-0400 Body temperature 98 [degF] Dr. Linden Chavez DO Work Phone: [facility] 02-16-2025 07:41-0400 Diastolic blood pressure 98 mm[Hg] Dr. Linden Chavez DO Work Phone: [facility] 02-16-2025 07:41-0400 Heart rate 77 /min Dr. Linden Chavez DO Work Phone: [facility] 02-16-2025 07:41-0400 Respiratory rate 19 /min Dr. Linden Chavez DO Work Phone: [facility] 02-16-2025 07:41-0400 SaO2% (BldA) [Mass fraction] 99 % Dr. Linden Chavez DO Work Phone: [facility] 02-16-2025 07:41-0400 Systolic blood pressure 107 mm[Hg] Dr. Linden Chavez DO Work Phone: [facility] 02-16-2025 04:01-0400 Body height 195.[address] Linden Chavez DO Work Phone: [facility] 02-16-2025 04:01-0400 Body mass index (BMI) [Ratio] 24.7 kg/m2 Dr. Linden Chavez DO Work Phone: [facility] 02-16-2025 04:01-0400 Body weight 94.[address] Linden Chavez DO Work Phone: [facility] 12-27-2024 01:46-0500 Body temperature 97.9 [degF] Dr. Linden Chavez DO Work Phone: [facility] 12-27-2024 01:46-0500 Diastolic blood pressure 80 mm[Hg] Dr. Linden Chavez DO Work Phone: [facility] 12-27-2024 01:46-0500 Heart rate 82 /min Dr. Linden Chavez DO Work Phone: [facility] 12-27-2024 01:46-0500 Respiratory rate 18 /min Dr. Linden Chavez DO Work Phone: [facility] 12-27-2024 01:46-0500 SaO2% (BldA) [Mass fraction] 95 % Dr. Linden Chavez DO Work Phone: [facility] 12-27-2024 01:46-0500 Systolic blood pressure 129 mm[Hg] Dr. Linden Chavez DO Work Phone: [facility] 12-26-2024 23:51-0500 Body mass index (BMI) [Ratio] 25.4 kg/m2 Dr. Linden Chavez DO Work Phone: [facility] 12-26-2024 23:51-0500 Body weight 97.[address] Linden Chavez DO Work Phone: [facility] 12-20-2024 20:13-0500 Body temperature 97.8 [degF] Dr. Linden Chavez DO Work Phone: [facility] 12-20-2024 20:13-0500 Diastolic blood pressure 98 mm[Hg] Dr. Linden Chavez DO Work Phone: [facility] 12-20-2024 20:13-0500 Heart rate 98 /min Dr. Linden Chavez DO Work Phone: [facility] 12-20-2024 20:13-0500 Respiratory rate 18 /min Dr. Linden Chavez DO Work Phone: [facility] 12-20-2024 20:13-0500 SaO2% (BldA) [Mass fraction] 97 % Dr. Linden Chavez DO Work Phone: [facility] 12-20-2024 20:13-0500 Systolic blood pressure 130 mm[Hg] Dr. Linden Chavez DO Work Phone: [facility] 12-14-2024 09:29-0500 Body mass index (BMI) [Ratio] 27.02 kg/m2 Ion Moomaw D[employer]LEXIA TEACHER.[employer] Work Phone: [facility] 12-14-2024 09:29-0500 Body temperature 97.11 [degF] Ion Moomaw D[employer]IA TEACHER.[employer] Work Phone: [facility] 12-14-2024 09:29-0500 Body weight 98.7 kg Ion Moomaw D[employer]IA TEACHER.[employer] Work Phone: [facility] 12-14-2024 09:29-0500 Diastolic blood pressure 70 mm[Hg] Ion Moomaw D[employer]IA TEACHER.[employer] Work Phone: [facility] 12-14-2024 09:29-0500 Heart rate 77 /min Ion Moomaw D[employer]IA TEACHER.[employer] Work Phone: [facility] 12-14-2024 09:29-0500 Respiratory rate 18 /min Ion Moomaw D[employer]IA TEACHER.[employer] Work Phone: [facility] 12-14-2024 09:29-0500 SaO2% (BldA) [Mass fraction] 97 % Ion Moomaw D[employer]IA TEACHER.[employer] Work Phone: [facility] 12-14-2024 09:29-0500 Systolic blood pressure 105 mm[Hg] Ion Moomaw D[employer]IA TEACHER.[employer] Work Phone: [facility] 12-08-2024 14:52-0500 Body temperature 97.4 [degF] Dr. iLnden Chavez DO Work Phone: [facility] 12-08-2024 14:52-0500 Diastolic blood pressure 102 mm[Hg] Dr. Linden Chavez DO Work Phone: [facility] 12-08-2024 14:52-0500 Heart rate 86 /min Dr. Linden Chavez DO Work Phone: [facility] 12-08-2024 14:52-0500 Respiratory rate 18 /min Dr. Linden Chavez DO Work Phone: [facility] 12-08-2024 14:52-0500 SaO2% (BldA) [Mass fraction] 95 % Dr. Linden Chavez DO Work Phone: [facility] 12-08-2024 14:52-0500 Systolic blood pressure 160 mm[Hg] Dr. Linden Chavez DO Work Phone: [facility] 12-08-2024 12:21-0500 Body mass index (BMI) [Ratio] 26.4 kg/m2 Dr. Linden Chavez DO Work Phone: [facility] 12-08-2024 12:21-0500 Body weight 101.[address] Linden Chavez DO Work Phone: [facility] 11-27-2024 16:07-0500 Body temperature 97.9 [degF] Dr. Linden Chavez DO Work Phone: [facility] 11-27-2024 16:07-0500 Diastolic blood pressure 69 mm[Hg] Dr. Linden Chavez DO Work Phone: [facility] 11-27-2024 16:07-0500 Heart rate 88 /min Dr. Linden Chavez DO Work Phone: [facility] 11-27-2024 16:07-0500 Respiratory rate 18 /min Dr. Linden Chavez DO Work Phone: [facility] 11-27-2024 16:07-0500 SaO2% (BldA) [Mass fraction] 96 % Dr. Linden Chavez DO Work Phone: [facility] 11-27-2024 16:07-0500 Systolic blood pressure 138 mm[Hg] Dr. Linden Chavez DO Work Phone: [facility] 10-30-2024 03:11-0500 Body temperature 97.4 [degF] Dr. Linden Chavez DO Work Phone: [facility] 10-30-2024 03:11-0500 Diastolic blood pressure 89 mm[Hg] Dr. Linden Chavez DO Work Phone: [facility] 10-30-2024 03:11-0500 Heart rate 77 /min Dr. Linden Chavez DO Work Phone: [facility] 10-30-2024 03:11-0500 Respiratory rate 18 /min Dr. Linden Chavez DO Work Phone: [facility] 10-30-2024 03:11-0500 SaO2% (BldA) [Mass fraction] 95 % Dr. Linden Chavez DO Work Phone: [facility] 10-30-2024 03:11-0500 Systolic blood pressure 103 mm[Hg] Dr. Linden Chavez DO Work Phone: [facility] 10-19-2024 06:50-0500 Body temperature 98.3 [degF] Dr. Linden Chavez DO Work Phone: [facility] 10-19-2024 06:50-0500 Diastolic blood pressure 75 mm[Hg] Dr. Linden Chavez DO Work Phone: [facility] 10-19-2024 06:50-0500 Heart rate 75 /min Dr. Linden Chavez DO Work Phone: [facility] 10-19-2024 06:50-0500 Respiratory rate 18 /min Dr. Linden Chavez DO Work Phone: [facility] 10-19-2024 06:50-0500 SaO2% (BldA) [Mass fraction] 96 % Dr. Linden Chavez DO Work Phone: [facility] 10-19-2024 06:50-0500 Systolic blood pressure 107 mm[Hg] Dr. Linden Chavez DO Work Phone: [facility] 10-19-2024 03:58-0500 Body mass index (BMI) [Ratio] 25.9 kg/m2 Dr. Linden Chavez DO Work Phone: [facility] 10-19-2024 03:58-0500 Body weight 99.[address] Linden Chavez DO Work Phone: [facility] 05-10-2024 19:42-0400 Body mass index (BMI) [Ratio] 27.65 kg/m2 Rosa Quinones APRN.[employer] Work Phone: [facility] 05-10-2024 19:42-0400 Body temperature 97.5 [degF] Rosa Quinones APRN.[employer] Work Phone: [facility] 05-10-2024 19:42-0400 Body weight 101 kg Rosa Quinones D[employer]IA TEACHER.[employer] Work Phone: [facility] 05-10-2024 19:42-0400 Diastolic blood pressure 81 mm[Hg] Rosa Quinones D[employer]IA TEACHER.[employer] Work Phone: [facility] 05-10-2024 19:42-0400 Heart rate 72 /min Rosa Quinones D[employer]IA TEACHER.[employer] Work Phone: [facility] 05-10-2024 19:42-0400 Respiratory rate 20 /min Rosa Quinones D[employer]IA TEACHER.[employer] Work Phone: [facility] 05-10-2024 19:42-0400 SaO2% (BldA) [Mass fraction] 96 % Rosa Quinones D[employer]IA TEACHER.[employer] Work Phone: [facility] 05-10-2024 19:42-0400 Systolic blood pressure 135 mm[Hg] Rosa Quinones D[employer]IA TEACHER.[employer] Work Phone: [facility] 03-09-2024 02:47-0400 Body temperature 98.7 [degF] [facility] 03-09-2024 02:47-0400 Diastolic blood pressure 71 mm[Hg] [facility] 03-09-2024 02:47-0400 Heart rate 79 /min [facility] 03-09-2024 02:47-0400 Respiratory rate 16 /min [facility] 03-09-2024 02:47-0400 SaO2% (BldA) [Mass fraction] 99 % [facility] 03-09-2024 02:47-0400 Systolic blood pressure 136 mm[Hg] [facility] 03-09-2024 01:35-0400 Body height 195.58 cm [facility] 03-09-2024 01:35-0400 Body mass index (BMI) [Ratio] 26.1 kg/m2 [facility] 03-09-2024 01:35-0400 Body weight 100 kg [facility] 03-08-2024 10:04-0400 Body temperature 98.4 [degF] [facility] 03-08-2024 10:04-0400 Diastolic blood pressure 87 mm[Hg] [facility] 03-08-2024 10:04-0400 Heart rate 79 /min [facility] 03-08-2024 10:04-0400 Respiratory rate 17 /min [facility] 03-08-2024 10:04-0400 SaO2% (BldA) [Mass fraction] 96 % [facility] 03-08-2024 10:04-0400 Systolic blood pressure 142 mm[Hg] [facility] 03-08-2024 06:24-0400 Body height 195.58 cm [facility] 03-08-2024 06:24-0400 Body mass index (BMI) [Ratio] 27.3 kg/m2 [facility] 03-08-2024 06:24-0400 Body weight 104.7 kg [facility] 02-08-2024 00:47-0400 Body temperature 98.4 [degF] [facility] 02-08-2024 00:47-0400 Diastolic blood pressure 67 mm[Hg] [facility] 02-08-2024 00:47-0400 Heart rate 92 /min [facility] 02-08-2024 00:47-0400 Respiratory rate 16 /min [facility] 02-08-2024 00:47-0400 SaO2% (BldA) [Mass fraction] 95 % [facility] 02-08-2024 00:47-0400 Systolic blood pressure 114 mm[Hg] [facility] 02-07-2024 19:16-0400 Body height 195.58 cm [facility] 02-07-2024 19:16-0400 Body mass index (BMI) [Ratio] 26.7 kg/m2 [facility] 02-07-2024 19:16-0400 Body weight 102.42 kg [facility] 01-27-2024 06:12-0400 Body temperature 97.8 [degF] [facility] 01-27-2024 06:12-0400 Diastolic blood pressure 60 mm[Hg] [facility] 01-27-2024 06:12-0400 Heart rate 66 /min [facility] 01-27-2024 06:12-0400 Respiratory rate 18 /min [facility] 01-27-2024 06:12-0400 SaO2% (BldA) [Mass fraction] 98 % [facility] 01-27-2024 06:12-0400 Systolic blood pressure 100 mm[Hg] [facility] 01-26-2024 23:30-0400 Body height 195.58 cm [facility] 01-26-2024 23:30-0400 Body mass index (BMI) [Ratio] 27.5 kg/m2 [facility] 01-26-2024 23:30-0400 Body weight 105.2 kg [facility] 12-25-2023 11:45-0500 Body temperature 97.4 [degF] [facility] 12-25-2023 11:45-0500 Diastolic blood pressure 81 mm[Hg] [facility] 12-25-2023 11:45-0500 Heart rate 74 /min [facility] 12-25-2023 11:45-0500 Respiratory rate 16 /min [facility] 12-25-2023 11:45-0500 SaO2% (BldA) [Mass fraction] 97 % [facility] 12-25-2023 11:45-0500 Systolic blood pressure 147 mm[Hg] [facility] 12-25-2023 08:45-0500 Body height 195.58 cm [facility] 12-25-2023 08:45-0500 Body mass index (BMI) [Ratio] 26.7 kg/m2 [facility] 12-25-2023 08:45-0500 Body weight 102.3 kg [facility] 12-18-2023 17:53-0500 Body temperature 98.2 [degF] [facility] 12-18-2023 17:53-0500 Diastolic blood pressure 61 mm[Hg] [facility] 12-18-2023 17:53-0500 Heart rate 77 /min [facility] 12-18-2023 17:53-0500 Respiratory rate 18 /min [facility] 12-18-2023 17:53-0500 SaO2% (BldA) [Mass fraction] 97 % [facility] 12-18-2023 17:53-0500 Systolic blood pressure 109 mm[Hg] [facility] 12-18-2023 16:22-0500 Body mass index (BMI) [Ratio] 26.7 kg/m2 [facility] 12-18-2023 16:22-0500 Body weight 102.2 kg [facility] 12-18-2023 15:34-0500 Body height 195.58 cm [facility] 12-08-2023 14:42-0500 Respiratory rate 18 /min [facility] 12-08-2023 12:40-0500 Body height 195.58 cm [facility] 12-08-2023 12:40-0500 Body temperature 99.7 [degF] [facility] 12-08-2023 12:40-0500 Diastolic blood pressure 82 mm[Hg] [facility] 12-08-2023 12:40-0500 Heart rate 75 /min [facility] 12-08-2023 12:40-0500 SaO2% (BldA) [Mass fraction] 95 % [facility] 12-08-2023 12:40-0500 Systolic blood pressure 115 mm[Hg] [facility] 11-22-2023 17:37-0500 Diastolic blood pressure 74 mm[Hg] [facility] 11-22-2023 17:37-0500 Heart rate 71 /min [facility] 11-22-2023 17:37-0500 Respiratory rate 16 /min [facility] 11-22-2023 17:37-0500 SaO2% (BldA) [Mass fraction] 98 % [facility] 11-22-2023 17:37-0500 Systolic blood pressure 118 mm[Hg] [facility] 11-22-2023 14:21-0500 Body height 195.58 cm [facility] 11-22-2023 14:21-0500 Body mass index (BMI) [Ratio] 26.2 kg/m2 [facility] 11-22-2023 14:21-0500 Body temperature 97.6 [degF] [facility] 11-22-2023 14:21-0500 Body weight 100.4 kg [facility] 09-30-2023 23:40-0500 Body height 196.01 cm [facility] 09-30-2023 23:40-0500 Body mass index (BMI) [Ratio] 28.3 kg/m2 [facility] 09-30-2023 23:40-0500 Body temperature 97.7 [degF] [facility] 09-30-2023 23:40-0500 Body weight 108.86 kg [facility] 09-30-2023 23:40-0500 Diastolic blood pressure 77 mm[Hg] [facility] 09-30-2023 23:40-0500 Heart rate 77 /min [facility] 09-30-2023 23:40-0500 Respiratory rate 18 /min [facility] 09-30-2023 23:40-0500 SaO2% (BldA) [Mass fraction] 95 % [facility] 09-30-2023 23:40-0500 Systolic blood pressure 127 mm[Hg] [facility] 09-29-2023 23:39-0500 Diastolic blood pressure 83 mm[Hg] [facility] 09-29-2023 23:39-0500 Systolic blood pressure 132 mm[Hg] [facility] 09-29-2023 19:23-0500 Body height 195.58 cm [facility] 09-29-2023 19:23-0500 Body mass index (BMI) [Ratio] 28.4 kg/m2 [facility] 09-29-2023 19:23-0500 Body temperature 97.6 [degF] [facility] 09-29-2023 19:23-0500 Body weight 108.86 kg [facility] 09-29-2023 19:23-0500 Heart rate 82 /min [facility] 09-29-2023 19:23-0500 Respiratory rate 18 /min [facility] 09-29-2023 19:23-0500 SaO2% (BldA) [Mass fraction] 96 % [facility] 08-26-2023 05:07-0400 Body height 195.58 cm [facility] 08-26-2023 05:07-0400 Body mass index (BMI) [Ratio] 27.2 kg/m2 [facility] 08-26-2023 05:07-0400 Body temperature 97.3 [degF] [facility] 08-26-2023 05:07-0400 Body weight 104.3 kg [facility] 08-26-2023 05:07-0400 Diastolic blood pressure 80 mm[Hg] [facility] 08-26-2023 05:07-0400 Heart rate 78 /min [facility] 08-26-2023 05:07-0400 Respiratory rate 18 /min [facility] 08-26-2023 05:07-0400 SaO2% (BldA) [Mass fraction] 98 % [facility] 08-26-2023 05:07-0400 Systolic blood pressure 144 mm[Hg] [facility] 08-18-2023 15:51-0400 Body temperature 97.59 [degF] Jimmy Connielefelicitas D[employer]IA TEACHER.[employer] Work Phone: [facility] 08-18-2023 15:51-0400 Body weight 102.97 kg Jimmy Ramos D[employer] TEACHER.[employer] Work Phone: [facility] 08-18-2023 15:51-0400 Diastolic blood pressure 80 mm[Hg] Jimmy Pendlebury D[employer] TEACHER.[employer] Work Phone: [facility] 08-18-2023 15:51-0400 Heart rate 74 /min Jimmy Pendlefelicitas D[employer]IA TEACHER.[employer] Work Phone: [facility] 08-18-2023 15:51-0400 Respiratory rate 20 /min Jimmy Pendlebury D[employer]IA TEACHER.[employer] Work Phone: [facility] 08-18-2023 15:51-0400 SaO2% (BldA) [Mass fraction] 98 % Jimmy Rosaleslefelicitas D[employer]IA TEACHER.[employer] Work Phone: [facility] 08-18-2023 15:51-0400 Systolic blood pressure 127 mm[Hg] Jimmy Pendlebury D[employer]IA TEACHER.[employer] Work Phone: [facility] 07-29-2023 13:51-0400 Diastolic blood pressure 101 mm[Hg] [facility] 07-29-2023 13:51-0400 Heart rate 86 /min [facility] 07-29-2023 13:51-0400 Respiratory rate 16 /min [facility] 07-29-2023 13:51-0400 SaO2% (BldA) [Mass fraction] 88 % [facility] 07-29-2023 13:51-0400 Systolic blood pressure 135 mm[Hg] [facility] 07-29-2023 09:08-0400 Body mass index (BMI) [Ratio] 28.2 kg/m2 [facility] 07-29-2023 09:08-0400 Body temperature 97.5 [degF] [facility] 07-29-2023 09:08-0400 Body weight 107.95 kg [facility] 05-12-2023 15:52-0400 Body height 195.58 cm [facility] 05-12-2023 15:52-0400 Body mass index (BMI) [Ratio] 28.4 kg/m2 [facility] 05-12-2023 15:52-0400 Body temperature 97.1 [degF] [facility] 05-12-2023 15:52-0400 Body weight 108.86 kg [facility] 05-12-2023 15:52-0400 Diastolic blood pressure 76 mm[Hg] [facility] 05-12-2023 15:52-0400 Heart rate 72 /min [facility] 05-12-2023 15:52-0400 Respiratory rate 14 /min [facility] 05-12-2023 15:52-0400 SaO2% (BldA) [Mass fraction] 94 % [facility] 05-12-2023 15:52-0400 Systolic blood pressure 125 mm[Hg] [facility] 03-07-2023 05:36-0400 Diastolic blood pressure 88 mm[Hg] [facility] 03-07-2023 05:36-0400 Heart rate 81 /min [facility] 03-07-2023 05:36-0400 Respiratory rate 18 /min [facility] 03-07-2023 05:36-0400 SaO2% (BldA) [Mass fraction] 96 % [facility] 03-07-2023 05:36-0400 Systolic blood pressure 141 mm[Hg] [facility] 03-07-2023 01:11-0400 Body height 187.96 cm [facility] 03-07-2023 01:11-0400 Body mass index (BMI) [Ratio] 30.2 kg/m2 [facility] 03-07-2023 01:11-0400 Body temperature 97.9 [degF] [facility] 03-07-2023 01:11-0400 Body weight 106.9 kg [facility] 01-18-2023 09:50-0400 Diastolic blood pressure 66 mm[Hg] [facility] 01-18-2023 09:50-0400 Heart rate 72 /min [facility] 01-18-2023 09:50-0400 Respiratory rate 15 /min [facility] 01-18-2023 09:50-0400 SaO2% (BldA) [Mass fraction] 98 % [facility] 01-18-2023 09:50-0400 Systolic blood pressure 143 mm[Hg] [facility] 01-18-2023 07:58-0400 Body height 195.58 cm [facility] 01-18-2023 07:58-0400 Body mass index (BMI) [Ratio] 27.2 kg/m2 [facility] 01-18-2023 07:58-0400 Body temperature 97.9 [degF] [facility] 01-18-2023 07:58-0400 Body weight 104.2 kg [facility] 12-11-2022 19:20-0500 Diastolic blood pressure 93 mm[Hg] [facility] 12-11-2022 19:20-0500 Heart rate 77 /min [facility] 12-11-2022 19:20-0500 Respiratory rate 16 /min [facility] 12-11-2022 19:20-0500 SaO2% (BldA) [Mass fraction] 96 % [facility] 12-11-2022 19:20-0500 Systolic blood pressure 154 mm[Hg] [facility] 12-11-2022 16:13-0500 Body height 195.58 cm [facility] 12-11-2022 16:13-0500 Body mass index (BMI) [Ratio] 27.7 kg/m2 [facility] 12-11-2022 16:13-0500 Body temperature 96.5 [degF] [facility] 12-11-2022 16:13-0500 Body weight 106.14 kg [facility] 12-10-2022 12:37-0500 Heart rate 78 /min [facility] 12-10-2022 12:37-0500 Respiratory rate 18 /min [facility] 12-10-2022 09:48-0500 Body height 195.58 cm [facility] 12-10-2022 09:48-0500 Body mass index (BMI) [Ratio] 27.8 kg/m2 [facility] 12-10-2022 09:48-0500 Body temperature 97.9 [degF] [facility] 12-10-2022 09:48-0500 Body weight 106.59 kg [facility] 12-10-2022 09:48-0500 Diastolic blood pressure 73 mm[Hg] [facility] 12-10-2022 09:48-0500 SaO2% (BldA) [Mass fraction] 99 % [facility] 12-10-2022 09:48-0500 Systolic blood pressure 109 mm[Hg] [facility] 11-25-2022 15:13-0500 Diastolic blood pressure 69 mm[Hg] [facility] 11-25-2022 15:13-0500 Heart rate 81 /min [facility] 11-25-2022 15:13-0500 Respiratory rate 16 /min [facility] 11-25-2022 15:13-0500 SaO2% (BldA) [Mass fraction] 97 % [facility] 11-25-2022 15:13-0500 Systolic blood pressure 137 mm[Hg] [facility] 11-25-2022 13:07-0500 Body height 195.58 cm [facility] 11-25-2022 13:07-0500 Body mass index (BMI) [Ratio] 27.7 kg/m2 [facility] 11-25-2022 13:07-0500 Body temperature 97.6 [degF] [facility] 11-25-2022 13:07-0500 Body weight 106.14 kg [facility] 10-30-2022 04:24-0500 Diastolic blood pressure 71 mm[Hg] [facility] 10-30-2022 04:24-0500 Heart rate 79 /min [facility] 10-30-2022 04:24-0500 Respiratory rate 16 /min [facility] 10-30-2022 04:24-0500 SaO2% (BldA) [Mass fraction] 95 % [facility] 10-30-2022 04:24-0500 Systolic blood pressure 115 mm[Hg] [facility] 10-29-2022 21:00-0500 Body mass index (BMI) [Ratio] 27.8 kg/m2 [facility] 10-29-2022 21:00-0500 Body temperature 97.3 [degF] [facility] 10-29-2022 21:00-0500 Body weight 106.59 kg [facility] 09-18-2022 10:21-0500 Body height 195.58 cm [facility] Work Phone: 09-18-2022 10:21-0500 Body mass index (BMI) [Ratio] 27.7 kg/m2 [facility] 09-18-2022 10:21-0500 Body temperature 97.4 [degF] [facility] 09-18-2022 10:21-0500 Body weight 106.14 kg [facility] 09-18-2022 10:21-0500 Diastolic blood pressure 94 mm[Hg] [facility] 09-18-2022 10:21-0500 Heart rate 77 /min [facility] 09-18-2022 10:21-0500 Respiratory rate 16 /min [facility] 09-18-2022 10:21-0500 SaO2% (BldA) [Mass fraction] 99 % [facility] 09-18-2022 10:21-0500 Systolic blood pressure 106 mm[Hg] [facility] 08-07-2022 22:15-0400 Diastolic blood pressure 70 mm[Hg] [facility] 08-07-2022 22:15-0400 Heart rate 83 /min [facility] 08-07-2022 22:15-0400 Respiratory rate 16 /min [facility] 08-07-2022 22:15-0400 SaO2% (BldA) [Mass fraction] 98 % [facility] 08-07-2022 22:15-0400 Systolic blood pressure 120 mm[Hg] [facility] 08-07-2022 18:39-0400 Body height 195.58 cm [facility] Work Phone: 08-07-2022 18:39-0400 Body mass index (BMI) [Ratio] 28.4 kg/m2 [facility] 08-07-2022 18:39-0400 Body temperature 97.8 [degF] [facility] 08-07-2022 18:39-0400 Body weight 108.86 kg [facility] 07-03-2022 00:40-0400 Heart rate 77 /min No Primary Care Physician [facility] Work Phone: 07-03-2022 00:40-0400 Respiratory rate 18 /min No Primary Care Physician [facility] Work Phone: 07-02-2022 20:57-0400 Body height 195.58 cm No Primary Care Physician [facility] Work Phone: 07-02-2022 20:57-0400 Body mass index (BMI) [Ratio] 27.8 kg/m2 No Primary Care Physician [facility] Work Phone: 07-02-2022 20:57-0400 Body temperature 97.8 [degF] No Primary Care Physician [facility] Work Phone: 07-02-2022 20:57-0400 Body weight 106.59 kg No Primary Care Physician [facility] Work Phone: 07-02-2022 20:57-0400 Diastolic blood pressure 97 mm[Hg] No Primary Care Physician [facility] Work Phone: 07-02-2022 20:57-0400 SaO2% (BldA) [Mass fraction] 99 % No Primary Care Physician [facility] Work Phone: 07-02-2022 20:57-0400 Systolic blood pressure 140 mm[Hg] No Primary Care Physician [facility] Work Phone: 05-26-2022 01:37-0400 Body height 195.58 cm No Primary Care Physician [facility] Work Phone: 05-26-2022 01:37-0400 Body mass index (BMI) [Ratio] 27.7 kg/m2 No Primary Care Physician [facility] Work Phone: 05-26-2022 01:37-0400 Body temperature 97.1 [degF] No Primary Care Physician [facility] Work Phone: 05-26-2022 01:37-0400 Body weight 106.14 kg No Primary Care Physician [facility] Work Phone: 05-26-2022 01:37-0400 Diastolic blood pressure 82 mm[Hg] No Primary Care Physician [facility] Work Phone: 05-26-2022 01:37-0400 Heart rate 79 /min No Primary Care Physician [facility] Work Phone: 05-26-2022 01:37-0400 Respiratory rate 16 /min No Primary Care Physician [facility] Work Phone: 05-26-2022 01:37-0400 SaO2% (BldA) [Mass fraction] 98 % No Primary Care Physician [facility] Work Phone: 05-26-2022 01:37-0400 Systolic blood pressure 137 mm[Hg] No Primary Care Physician [facility] Work Phone: 04-26-2022 18:38-0400 Heart rate 76 /min No Primary Care Physician [facility] Work Phone: 04-26-2022 18:38-0400 Respiratory rate 17 /min No Primary Care Physician [facility] Work Phone: 04-26-2022 18:38-0400 SaO2% (BldA) [Mass fraction] 97 % No Primary Care Physician [facility] Work Phone: 04-26-2022 14:33-0400 Body temperature 98 [degF] No Primary Care Physician [facility] Work Phone: 04-26-2022 14:33-0400 Diastolic blood pressure 74 mm[Hg] No Primary Care Physician [facility] Work Phone: 04-26-2022 14:33-0400 Heart rate 71 /min No Primary Care Physician [facility] Work Phone: 04-26-2022 14:33-0400 Respiratory rate 18 /min No Primary Care Physician [facility] Work Phone: 04-26-2022 14:33-0400 SaO2% (BldA) [Mass fraction] 99 % No Primary Care Physician [facility] Work Phone: 04-26-2022 14:33-0400 Systolic blood pressure 117 mm[Hg] No Primary Care Physician [facility] Work Phone: 04-26-2022 14:06-0400 Body height 195.58 cm No Primary Care Physician [facility] Work Phone: 04-26-2022 14:06-0400 Body mass index (BMI) [Ratio] 28.9 kg/m2 No Primary Care Physician [facility] Work Phone: 04-26-2022 14:06-0400 Body weight 110.67 kg No Primary Care Physician [facility] Work Phone: 03-20-2022 14:23-0400 Body temperature 99 [degF] No Primary Care Physician [facility] Work Phone: 03-20-2022 14:19-0400 Diastolic blood pressure 97 mm[Hg] No Primary Care Physician [facility] Work Phone: 03-20-2022 14:19-0400 Heart rate 70 /min No Primary Care Physician [facility] Work Phone: 03-20-2022 14:19-0400 Respiratory rate 16 /min No Primary Care Physician [facility] Work Phone: 03-20-2022 14:19-0400 SaO2% (BldA) [Mass fraction] 97 % No Primary Care Physician [facility] Work Phone: 03-20-2022 14:19-0400 Systolic blood pressure 156 mm[Hg] No Primary Care Physician [facility] Work Phone: 03-20-2022 12:29-0400 Body height 195.58 cm No Primary Care Physician [facility] Work Phone: 03-20-2022 12:29-0400 Body weight 98.6 kg No Primary Care Physician [facility] Work Phone: 03-19-2022 23:34-0400 Body mass index (BMI) [Ratio] 25.7 kg/m2 No Primary Care Physician [facility] Work Phone: 03-19-2022 23:08-0400 Body temperature 98.1 [degF] No Primary Care Physician [facility] Work Phone: 03-19-2022 23:08-0400 Diastolic blood pressure 89 mm[Hg] No Primary Care Physician [facility] Work Phone: 03-19-2022 23:08-0400 Heart rate 98 /min No Primary Care Physician [facility] Work Phone: 03-19-2022 23:08-0400 Respiratory rate 14 /min No Primary Care Physician [facility] Work Phone: 03-19-2022 23:08-0400 SaO2% (BldA) [Mass fraction] 97 % No Primary Care Physician [facility] Work Phone: 03-19-2022 23:08-0400 Systolic blood pressure 126 mm[Hg] No Primary Care Physician [facility] Work Phone: 03-19-2022 17:31-0400 Body height 195.58 cm No Primary Care Physician [facility] Work Phone: 03-19-2022 17:31-0400 Body mass index (BMI) [Ratio] 27.7 kg/m2 No Primary Care Physician [facility] Work Phone: 03-19-2022 17:31-0400 Body weight 106.14 kg No Primary Care Physician [facility] Work Phone: 03-02-2022 18:53-0400 Body height 195.58 cm No Primary Care Physician [facility] Work Phone: 03-02-2022 18:53-0400 Body mass index (BMI) [Ratio] 27.7 kg/m2 No Primary Care Physician [facility] Work Phone: 03-02-2022 18:53-0400 Body temperature 97.2 [degF] No Primary Care Physician [facility] Work Phone: 03-02-2022 18:53-0400 Body weight 106.14 kg No Primary Care Physician [facility] Work Phone: 03-02-2022 18:53-0400 Diastolic blood pressure 96 mm[Hg] No Primary Care Physician [facility] Work Phone: 03-02-2022 18:53-0400 Heart rate 82 /min No Primary Care Physician [facility] Work Phone: 03-02-2022 18:53-0400 Respiratory rate 15 /min No Primary Care Physician [facility] Work Phone: 03-02-2022 18:53-0400 SaO2% (BldA) [Mass fraction] 98 % No Primary Care Physician [facility] Work Phone: 03-02-2022 18:53-0400 Systolic blood pressure 145 mm[Hg] No Primary Care Physician [facility] Work Phone: 01-31-2022 09:08-0400 Diastolic blood pressure 77 mm[Hg] No Primary Care Physician [facility] Work Phone: 01-31-2022 09:08-0400 Heart rate 62 /min No Primary Care Physician [facility] Work Phone: 01-31-2022 09:08-0400 Respiratory rate 15 /min No Primary Care Physician [facility] Work Phone: 01-31-2022 09:08-0400 SaO2% (BldA) [Mass fraction] 98 % No Primary Care Physician [facility] Work Phone: 01-31-2022 09:08-0400 Systolic blood pressure 124 mm[Hg] No Primary Care Physician [facility] Work Phone: 01-31-2022 08:10-0400 Body mass index (BMI) [Ratio] 28.9 kg/m2 No Primary Care Physician [facility] Work Phone: 01-31-2022 08:10-0400 Body temperature 97.8 [degF] No Primary Care Physician [facility] Work Phone: 01-31-2022 08:10-0400 Body weight 110.67 kg No Primary Care Physician [facility] Work Phone: 01-08-2022 11:14-0500 Diastolic blood pressure 91 mm[Hg] No Primary Care Physician [facility] Work Phone: 01-08-2022 11:14-0500 Heart rate 78 /min No Primary Care Physician [facility] Work Phone: 01-08-2022 11:14-0500 Respiratory rate 16 /min No Primary Care Physician [facility] Work Phone: 01-08-2022 11:14-0500 Systolic blood pressure 136 mm[Hg] No Primary Care Physician [facility] Work Phone: 01-08-2022 10:14-0500 Diastolic blood pressure 91 mm[Hg] No Primary Care Physician [facility] Work Phone: 01-08-2022 10:14-0500 Heart rate 78 /min No Primary Care Physician [facility] Work Phone: 01-08-2022 10:14-0500 Respiratory rate 16 /min No Primary Care Physician [facility] Work Phone: 01-08-2022 10:14-0500 Systolic blood pressure 136 mm[Hg] No Primary Care Physician [facility] Work Phone: 01-08-2022 07:05-0500 Body mass index (BMI) [Ratio] 25.9 kg/m2 No Primary Care Physician [facility] Work Phone: 01-08-2022 07:05-0500 Body temperature 98.6 [degF] No Primary Care Physician [facility] Work Phone: 01-08-2022 07:05-0500 Body weight 99.4 kg No Primary Care Physician [facility] Work Phone: 01-08-2022 07:05-0500 SaO2% (BldA) [Mass fraction] 97 % No Primary Care Physician [facility] Work Phone: 01-08-2022 06:05-0500 Body mass index (BMI) [Ratio] 25.9 kg/m2 No Primary Care Physician [facility] Work Phone: 01-08-2022 06:05-0500 Body temperature 98.6 [degF] No Primary Care Physician [facility] Work Phone: 01-08-2022 06:05-0500 Body weight 99.4 kg No Primary Care Physician [facility] Work Phone: 01-08-2022 06:05-0500 SaO2% (BldA) [Mass fraction] 97 % No Primary Care Physician [facility] Work Phone: 01-07-2022 08:31-0500 Body temperature 98 [degF] No Primary Care Physician [facility] Work Phone: 01-07-2022 08:31-0500 Diastolic blood pressure 82 mm[Hg] No Primary Care Physician [facility] Work Phone: 01-07-2022 08:31-0500 Heart rate 70 /min No Primary Care Physician [facility] Work Phone: 01-07-2022 08:31-0500 Respiratory rate 16 /min No Primary Care Physician [facility] Work Phone: 01-07-2022 08:31-0500 SaO2% (BldA) [Mass fraction] 95 % No Primary Care Physician [facility] Work Phone: 01-07-2022 08:31-0500 Systolic blood pressure 138 mm[Hg] No Primary Care Physician [facility] Work Phone: 01-07-2022 07:31-0500 Body temperature 98 [degF] No Primary Care Physician [facility] Work Phone: 01-07-2022 07:31-0500 Diastolic blood pressure 82 mm[Hg] No Primary Care Physician [facility] Work Phone: 01-07-2022 07:31-0500 Heart rate 70 /min No Primary Care Physician [facility] Work Phone: 01-07-2022 07:31-0500 Respiratory rate 16 /min No Primary Care Physician [facility] Work Phone: 01-07-2022 07:31-0500 SaO2% (BldA) [Mass fraction] 95 % No Primary Care Physician [facility] Work Phone: 01-07-2022 07:31-0500 Systolic blood pressure 138 mm[Hg] No Primary Care Physician [facility] Work Phone: 01-05-2022 10:48-0500 Body weight 97.25 kg No Primary Care Physician [facility] Work Phone: 01-05-2022 09:55-0500 Body mass index (BMI) [Ratio] 25.4 kg/m2 No Primary Care Physician [facility] Work Phone: 01-05-2022 09:48-0500 Body weight 97.25 kg No Primary Care Physician [facility] Work Phone: 01-05-2022 08:55-0500 Body mass index (BMI) [Ratio] 25.4 kg/m2 No Primary Care Physician [facility] Work Phone: 11-12-2021 20:28-0500 Diastolic blood pressure 81 mm[Hg] No Primary Care Physician [facility] Work Phone: 11-12-2021 20:28-0500 Heart rate 71 /min No Primary Care Physician [facility] Work Phone: 11-12-2021 20:28-0500 Systolic blood pressure 128 mm[Hg] No Primary Care Physician [facility] Work Phone: 11-12-2021 17:55-0500 Body temperature 97.3 [degF] No Primary Care Physician [facility] Work Phone: 11-12-2021 17:55-0500 Respiratory rate 15 /min No Primary Care Physician [facility] Work Phone: 11-12-2021 17:55-0500 SaO2% (BldA) [Mass fraction] 96 % No Primary Care Physician [facility] Work Phone: 11-12-2021 17:53-0500 Body mass index (BMI) [Ratio] 28.2 kg/m2 No Primary Care Physician [facility] Work Phone: 11-12-2021 17:53-0500 Body weight 107.95 kg No Primary Care Physician [facility] Work Phone: 11-09-2021 08:52-0500 Diastolic blood pressure 92 mm[Hg] No Primary Care Physician [facility] Work Phone: 11-09-2021 08:52-0500 Heart rate 74 /min No Primary Care Physician [facility] Work Phone: 11-09-2021 08:52-0500 SaO2% (BldA) [Mass fraction] 95 % No Primary Care Physician [facility] Work Phone: 11-09-2021 08:52-0500 Systolic blood pressure 138 mm[Hg] No Primary Care Physician [facility] Work Phone: 11-09-2021 06:25-0500 Body mass index (BMI) [Ratio] 27.8 kg/m2 No Primary Care Physician [facility] Work Phone: 11-09-2021 06:25-0500 Body temperature 96.9 [degF] No Primary Care Physician [facility] Work Phone: 11-09-2021 06:25-0500 Body weight 106.59 kg No Primary Care Physician [facility] Work Phone: 11-09-2021 06:25-0500 Respiratory rate 18 /min No Primary Care Physician [facility] Work Phone: 10-07-2019 07:48-0500 Body Temperature 96.1 [degF] [place], [place] 10-07-2019 07:48-0500 BP Diastolic 90 mm[Hg] [place], [place] 10-07-2019 07:48-0500 BP Systolic 139 mm[Hg] [place], [place] 10-07-2019 07:48-0500 Pulse (Heart Rate) 72 /min [place], [place] 10-07-2019 07:48-0500 Pulse Oximetry 95 % [place], [place] 10-07-2019 07:48-0500 Respiratory Rate 16 /min [place], [place] 10-07-2019 06:06-0500 BMI (Body Mass Index) 26.7 kg/m2 Jocelyn Homero [place], [place] 10-07-2019 06:06-0500 Body weight 102.15 kg [place], [place] 10-06-2019 12:03-0500 Height 195.6 cm [place] Encounters Encounter Date Encounter Type Care Provider Facility Start: 05-23-2025 End: 05-23-2025 Patient encounter procedure Rosio AGUILLON -[facility] Work Phone: Start: 05-23-2025 End: 05-23-2025 ambulatory No Primary Care Physician -[facility] Start: 05-22-2025 End: 05-22-2025 Emergency department patient visit No Primary Care Physician -Emergency Department Work Phone: Start: 05-03-2025 End: 05-03-2025 Emergency department patient visit No Primary Care Physician -Emergency Department Work Phone: Start: 04-26-2025 End: 04-26-2025 ambulatory No Primary Care Physician -Laboratory Specimen Start: 04-26-2025 End: 04-26-[address] Linden Chavez DO -Laboratory Specimen Work Phone: Start: 04-26-2025 End: 04-26-2025 ambulatory [facility] Facility:[facility] Start: 04-23-2025 End: 04-23-2025 ambulatory No Primary Care Physician -Laboratory [place] [facility] Start: 04-23-2025 End: 04-23-[address] Linden Chavez DO -Laboratory [place] [facility] Start: 04-23-2025 End: 04-23-2025 ambulatory [facility] Facility:[facility] Start: 04-21-2025 End: 04-21-2025 Emergency department patient visit No Primary Care Physician -Emergency Department Work Phone: Start: 03-26-2025 End: 03-26-2025 Emergency department patient visit Dr. Pedro Krishnan DO Work Phone: -Emergency Department Work Phone: Start: 02-16-2025 End: 02-16-2025 Dr. Linden Chavez DO Work Phone: -Emergency Department Work Phone: Start: 02-16-2025 End: 02-16-2025 Emergency department patient visit Dr. Linden Chavez DO Work Phone: [facility] Work Phone: Start: 12-26-2024 End: 12-27-2024 Dr. Panchito Castillo DO -Emergency Departmen t Work Phone: Start: 12-26-2024 End: 12-27-2024 Emergency department patient visit Dr. Panchito Yun -Emergency Department Work Phone: Start: 12-20-2024 End: 12-20-2024 Dr. Avni Cash MD -Emergency Departmen t Work Phone: Start: 12-20-2024 End: 12-20-2024 Emergency department patient visit Dr. Avni Cash MD -Emergency Department Work Phone: Start: 12-14-2024 End: 12-14-2024 ambulatory Facility:[facility] Start: 12-14-2024 End: 12-14-2024 Patient encounter procedure Ion Alfaro [employer] Work Phone: [facility] Comment on above: Eustachian tube dysf unction, [...] Work Phone: Start: 10-29-2024 End: [facility]-30-[facility] Start: 10-29-2024 End: 10-30-2024 [facility] Start: 10-19-2024 End: 10-19-2024 Dr. Live Ashley MD -Emergency Department Work Phone: Start: 10-19-2024 End: 10-19-2024 Emergency department patient visit Live Ashley Facility:[facility] Start: 08-10-2024 End: 08-10-2024 Emergency department patient visit Adam Allen Facility:[facility] Start: 05-27-2024 End: 05-28-2024 Emergency department patient visit Johann Lemons Facility:[facility] Start: 05-10-2024 End: 05-10-2024 ambulatory Facility:[facility] Start: 05-10-2024 End: 05-10-2024 Patient encounter procedure Rosa Quinones APRN.[facility] Work Phone: [facility] Comment on above: Bilateral impacted c erumen (Primary Dx) Start: 03-09-2024 End: 03-09-2024 Emergency department patient visit [facility] Work Phone: Start: 03-08-2024 End: 03-08-2024 Emergency department patient visit [facility] Work Phone: Start: 02-07-2024 End: 02-08-2024 Emergency department patient visit [facility] Work Phone: Start: 01-26-2024 End: 01-27-2024 Emergency department patient visit [facility] Work Phone: Start: 01-05-2024 End: 01-05-2024 ambulatory [facility] Work Phone: Start: 01-05-2024 End: 01-05-2024 Patient encounter procedure [facility]-Mike Freed [facility] Start: 12-25-2023 End: 12-25-2023 Emergency department patient visit [facility] Work Phone: Start: 12-18-2023 End: 12-18-2023 Emergency department patient visit [facility] Work Phone: Start: 12-08-2023 End: 12-08-2023 Emergency department patient visit [facility] Work Phone: Start: 11-22-2023 End: 11-22-2023 Emergency department patient visit [facility] Work Phone: Start: 09-30-2023 End: 10-01-2023 Emergency department patient visit [facility] Work Phone: Start: 09-29-2023 End: 09-29-2023 Emergency department patient visit [facility] Work Phone: Start: 08-26-2023 End: 08-26-2023 Emergency department patient visit [facility] Work Phone: Start: 08-18-2023 End: 08-18-2023 Office outpatient visit 15 minutes Jimmy Ramos APRN.[employer] Work Phone: [facility] Comment on above: Bilateral impacted c erumen (Primary Dx) Start: 07-29-2023 End: 07-29-2023 Emergency department patient visit [facility] Work Phone: Start: 05-12-2023 End: 05-12-2023 Emergency department patient visit [facility] Work Phone: Start: 03-07-2023 End: 03-07-2023 Emergency department patient visit [facility] Start: 01-18-2023 End: 01-18-2023 Emergency department patient visit [facility] Start: 12-15-2022 End: 12-15-2022 ambulatory [facility] Work Phone: Start: 12-15-2022 End: 12-15-2022 Patient encounter procedure [facility]Mike Freed [facility] Start: 12-11-2022 End: 12-11-2022 Emergency department patient visit [facility] Start: 12-10-2022 End: 12-10-2022 Emergency department patient visit [facility] Start: 11-25-2022 End: 11-25-2022 Emergency department patient visit [facility] Start: 10-29-2022 End: 10-30-2022 Emergency department patient visit [facility] Start: 09-18-2022 End: 09-18-2022 Emergency department patient visit [facility] Start: 08-07-2022 End: 08-07-2022 Emergency department patient visit [facility] Start: 07-02-2022 End: 07-03-2022 Emergency department patient visit No Primary Care Physician [facility] Start: 05-26-2022 End: 05-26-2022 Emergency department patient visit No Primary Care Physician [facility] Start: 04-26-2022 End: 04-26-2022 Emergency department patient visit No Primary Care Physician [facility] Start: 03-20-2022 Non-patient / Non-visit No Primary Care Physician [facility] Start: 03-19-2022 End: 03-20-2022 Evaluation and management of inpatient No Primary Care Physician [facility]Medical Surgical 3 Start: 03-19-2022 Non-patient / Non-visit No Primary Care Physician [facility] Start: 03-02-2022 End: 03-02-2022 Emergency department patient visit No Primary Care Physician [facility] Start: 01-31-2022 End: 01-31-2022 Emergency department patient visit No Primary Care Physician [facility] Start: 01-08-2022 End: 01-08-2022 Emergency department patient visit No Primary Care Physician [facility] Start: 01-07-2022 Non-patient / Non-visit No Primary Care Physician [facility] Start: 01-06-2022 Non-patient / Non-visit No Primary Care Physician [facility] Start: 01-06-2022 Non-patient / Non-visit No Primary Care Physician [facility] Start: 01-05-2022 Non-patient / Non-visit No Primary Care Physician [facility] Start: 01-05-2022 Non-patient / Non-visit No Primary Care Physician [facility] Start: 01-04-2022 Non-patient / Non-visit No Primary Care Physician [facility] Start: 01-04-2022 End: 01-07-2022 Evaluation and management of inpatient No Primary Care Physician [facility] 3 Start: 11-12-2021 End: 11-12-2021 Emergency department patient visit No Primary Care Physician [facility] Start: 11-09-2021 End: 11-09-2021 Emergency department patient visit No Primary Care Physician [facility] Start: 10-05-2019 End: 10-07-2019 Evaluation and management of inpatient Jocelyn Valentin Work Phone: [facility] Oncology Procedures Date Procedure Procedure Detail Performing Clinician Start: 05-22-2025 Measurement of occul t blood in stool specimen using immunoassay No Primary Care Physician Start: 05-22-2025 Estimated creatinine clearance No Primary Care Physician Start: 05-03-2025 Urine culture No Primar y Care Physician Start: 05-03-2025 Urnls dip stick/tabl et reagent [...] HCV Quant by PCR testing - HCVPCR #[id number] Non Reactive: < 0.8 Equivocal: >/= 0.8 [...] d ev cleared fda spec home use [employer] Work Phone: Start: 10-06-2019 Gluc bld gluc mntr d ev cleared fda spec home use [employer] Work Phone: Start: 10-06-2019 Gluc bld gluc mntr d ev cleared fda spec home use [employer] Work Phone: Start: 10-06-2019 Gluc bld gluc mntr d ev cleared fda spec home use [employer] Work Phone: Start: 10-06-2019 HM ENDOSCOPY REPORT 3m Scanning Start: 10-06-2019 Gluc bld gluc mntr d ev cleared fda spec home use [employer] Work Phone: Start: 10-06-2019 Gluc bld gluc mntr d ev cleared fda spec home use [employer] Work Phone: Start: 10-06-2019 Gluc bld gluc mntr d ev cleared fda spec home use [employer] Work Phone: Start: 10-06-2019 Assay of magnesium [...] [facility] Work Phone: Start: 11-21-2013 [facility] [employer] TEACH[facility].[employer] Work Phone: Start: 06-22-2011 History of placement of stent for coronary artery disease S/P coronary artery stent placement Jimmy Ramos 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 Start: 05-03-2025 Bacteria identified in Urine by Culture Urine Culture [facility] Start: 05-03-2025 End: 05-03-[address] [facility] Start: 04-21-[address] [facility] Start: 03-26-[address] [facility] Start: 02-16-2025 End: 02-16-[address] [facility] Start: 12-27-[address] [facility] Start: 12-20-[address] [facility] Start: 12-08-[address] [facility] Start: 11-27-2024 End: 11-27-[address] [facility] Start: 10-30-[address] [facility] Start: 10-19-[address] [facility] Start: 07-01-2024 Covid-19 Vaccine ( season) Covid-19 Vaccine ( season) [facility] Start: 07-01-2024 Influenza vaccination Influenza Vaccine (#1) [facility] Start: 03-09-[address] [facility] Start: 03-08-[address] [facility] Start: 02-08-[address] [facility] Start: 01-27-[address] [facility] Start: 12-25-2023 End: 12-25-[address] [facility] Start: 12-18-[address] [facility] Start: 12-08-[address] [facility] Start: 11-22-[address] [facility] Start: 10-31-2023 Behavioral Health Screening Behavioral Health Screening [facility] Start: 10-01-[address] [facility] Start: 09-29-[address] [facility] Start: 09-29-[address] [facility] Start: 08-26-[address] [facility] Start: 07-01-2023 Covid-19 Vaccine ( season) Covid-19 Vaccine ( season) [facility] Start: 07-01-2023 Influenza vaccination Influenza Vaccine (#1) [facility] Start: 01-18-2023 Enteric precautions [facility] Start: 10-31-2022 Depression Assessment Depression Assessment [facility] Start: 10-29-[address] [facility] Start: 08-07-2022 Iv infusion hydration initial 31 min-1 hour HYDRATION IV INFUSION INIT [facility] Start: 04-26-2022 Electrocardiographic procedure [facility] Work Phone: Start: 03-20-2022 Patient discharge [facility] Work Phone: Start: 03-20-2022 Referral to occupational therapist [facility] Work Phone: Start: 03-20-2022 Referral to service [facility] Work Phone: Start: 03-19-2022 Ambulation without limitation [facility] Work Phone: Start: 03-19-2022 Assessment of risk of venous thromboembolism [facility] Work Phone: Start: 03-19-2022 Insertion of catheter into peripheral vein [facility] Work Phone: Start: 03-19-2022 Oxygen therapy [facility] Work Phone: Start: 03-19-2022 Providing care according to standard [facility] Work Phone: Start: 03-19-[address] [facility] Work Phone: Start: 03-19-2022 Admission procedure [facility] Work Phone: Start: 03-19-2022 Following clinical pathway protocol [facility] Work Phone: Start: 03-19-2022 Bacteria identified in Blood by Culture Blood Culture [facility] Work Phone: Start: 03-19-2022 Bacteria identified in Urine by Culture Urine Culture [facility] Work Phone: Start: 03-19-2022 Urine culture Urine Culture [facility] Work Phone: Start: 03-19-2022 Patient referral to dietitian [facility] Work Phone: Start: 03-02-2022 Enteric precautions [facility] Work Phone: Start: 01-07-2022 Patient discharge [facility] Work Phone: Start: 01-06-2022 Care regimes management [facility] Work Phone: Start: 01-06-[address] [facility] Work Phone: Start: 01-06-[address] [facility] Work Phone: Start: 01-04-2022 Following clinical pathway protocol [facility] Work Phone: Start: 01-04-2022 Ambulation without limitation [facility] Work Phone: Start: 01-04-2022 Assessment of risk of venous thromboembolism [facility] Work Phone: Start: 01-04-2022 Insertion of catheter into peripheral vein [facility] Work Phone: Start: 01-04-2022 Oxygen therapy [facility] Work Phone: Start: 01-04-2022 Providing care according to standard [facility] Work Phone: Start: 01-04-2022 Referral to gastroenterology service [facility] Work Phone: Start: 01-04-[address] [facility] Work Phone: Start: 01-04-2022 Catheterization of vein [facility] Work Phone: Start: 01-04-2022 Admission procedure [facility] Work Phone: Start: 01-04-2022 Egd transoral biopsy single/multiple EGD BIOPSY SINGLE/MULTIPLE [facility] Work Phone: Start: 01-04-2022 Egd transoral control bleeding any method EGD CONTROL BLEEDING ANY [facility] Work Phone: Start: 01-04-2022 Enteric precautions [facility] Work Phone: Start: 01-04-2022 Patient referral to dietitian [facility] Work Phone: Start: 05-13-2021 Glaucoma screening Dilated Retinal Exam [facility] Start: 05-13-2021 Hepatitis C antibody, confirmatory test Dilated Retinal Exam [facility] Start: 11-08-2020 Annual PCP Team Chronic Disease Visit Annual PCP Team Chronic Disease Visit [facility] Start: 10-06-2020 Creatinine monitoring Creatinine monitoring [place], [place] Start: 10-06-2020 Potassium monitoring Potassium monitoring [place], [place] Start: 2020 Hepatitis B Vaccine (1 of 3 - Risk 3-dose series) Hepatitis B Vaccine (1 of 3 - Risk 3-dose series) [facility] Start: 2020 RSV Vaccine (1 - 1-dose 60+ series) RSV Vaccine (1 - 1-dose 60+ series) [facility] Start: 2020 RSV Vaccine (1 - Risk 60-74 years 1-dose series) RSV Vaccine (1 - Risk 60-74 years 1-dose series) [facility] Start: 02-17-2020 3 comp foot exam completed [facility] Start: 02-17-2020 Diabetic foot examination Diabetic Foot Exam [facility] Start: 07-14-2019 Hepatitis B screening Urine Albumin:Creatinine Ratio [facility] Start: 07-14-2019 Hepatitis B surface antibody level LDL Cholesterol [facility] Start: 07-01-2019 Influenza vaccination Flu vaccine (#1) [place], [place] Start: 06-06-2019 Hemoglobin A1c measurement HbA1C [facility] Start: 06-06-2019 Hemoglobin A1c/Hemoglobin.total in Blood HbA1C [facility] Start: 11-21-2018 Colonoscopy Colonoscopy [facility] Start: 11-21-2018 Colorectal Cancer Screening Colorectal Cancer Screening [facility] Start: 11-21-2018 Screening for malignant neoplasm of colon [facility] Start: 2015 Prostate Cancer Screening Discussion Prostate Cancer Screening Discussion [facility] Start: 2015 Prostate specific antigen measurement Prostate Cancer Screening Discussion [facility] Start: 06-08-2014 Fecal Occult Blood Fecal Occult Blood [facility] Start: 06-08-2014 Screening for malignant neoplasm of colon Fecal Occult Blood [facility] Start: 07-22-2012 Pneumococcal vaccination [facility] Start: 07-22-2012 Pneumococcal Vaccine: 50+ (2 of 2 - PCV) Pneumococcal Vaccine: 50+ (2 of 2 - PCV) [facility] Start: 2010 Colon cancer screen colonoscopy Colon cancer screen colonoscopy [facility] Start: 2010 Shingles Vaccine (1 of 2) Shingles Vaccine (1 of 2) [facility] [place] Start: 2010 Shingrix Vaccine (1 of 2) Shingrix Vaccine (1 of 2) [facility] Start: 2005 Cologuard (FIT-DNA) Cologuard (FIT-DNA) [facility] Start: [address] Colonography [facility] Start: 2005 Screening for malignant neoplasm of colon [facility] Start: 2005 Sigmoidoscopy Sigmoidoscopy [facility] Start: 2000 Diabetes screen Diabetes screen [place], [place] Start: 1978 Annual PCP Team Chronic Disease Visit Annual PCP Team Chronic Disease Visit [facility] Start: 1978 Anxiety Screening Anxiety Screening [facility] Start: 1978 BP Controlled (<130/80) BP Controlled (<130/80) [facility] Start: 1978 Depression Screening Depression Screening [facility] Start: 1978 HIV Screening HIV Screening [facility] Start: 1978 HIV screening HIV Screening [facility] Start: 1975 HIV screen HIV screen [place], [place] Start: 1971 DTaP/Tdap/Td vaccine (1 - Tdap) DTaP/Tdap/Td vaccine ( - Tdap) [place], [place] Start: 1970 Lipid screen Lipid screen [place], [place] Start: 1960 Hepatitis C screen Hepatitis C screen [place], [place] Acetone [Presence] i n Serum or Plasma [facility] Amphetamine [Mass/vo lume] in Urine [facility] Benzodiazepine measu rement, urine [facility] Bilirubin measurement, urine [facility] C. difficile DNA Amplification C. difficile DNA Amplification [facility] Clostridioides diffi cile DNA [Presence] in Unspecified specimen by IOANA with probe detection [facility] Cocaine measurement, urine [facility] Gastrointestinal pat hogens panel - Stool by IOANA with probe detection [facility] Hemoglobin [Presence ] in Urine [facility] Initiate Oxygen Ther apy Protocol Initiate Oxygen Therapy Protocol Respiratory Care Routine Daily until discontinued starting 10/05/2019 [place], [place] Comment on above: Daily until discontinued starting 2018 Measurement of 3,4-methylenedioxymethampheta mine in urine [facility] Measurement of keton es in urine using dipstick [facility] Methadone measurement, urine [facility] Microscopic urinalysis [facility] Ova and parasites id entified in Unspecified specimen by Light microscopy [facility] Patient Education [facility] Work Phone: Patient referral [facility] Work Phone: pH of Urine [facility] pH of Urine [facility] Phencyclidine [Prese nce] in Urine [facility] POCT Glucose [facility] [place] Comment on above: As Needed until discontinued starting 4X Daily (AC & HS) u ntil discontinued starting 10/06/2019 Removal impacted cer umen irrigation/lvg unilat AMBULATORY EAR LAVAGE/IRRIGATION Procedures Routine Bilateral impacted cerumen Ordered: 05/10/2024 [facility] Work Phone: Comment on above: Ordered: 05/10/2024 Specific gravity of Urine [facility] Urinalysis, blood, qualitative [facility] Urine barbiturate measurement [facility] Urine cannabinoid measurement [facility] Urine culture [facility] Urine culture [facility] Urine dipstick for glucose [facility] Urine dipstick for l eukocyte esterase [facility] Urine dipstick for nitrite [facility] Urine dipstick for protein [facility] Urine examination [facility] Urine microscopy: ep ithelial cells [facility] Urine Microscopy: white cells [facility] Urine opiate measurement [facility] Urobilinogen [Presen ce] in Urine [facility] Immunizations Immunization Date Immunization Notes Care Provider Nury doyle 11-07-2021 Covid (Pfizer) No Primary Ca re Physician [facility] 04-23-2021 Covid (Moderna) No Primary C are Physician [facility] 03-26-2021 Covid (Moderna) No Primary C are Physician [facility] 11-08-2019 influenza virus vacc ine, unspecified formulation Jimmy Ramos APRN.[facility] Work Phone: [facility] 08-08-2012 tetanus and diphther ia toxoids, adsorbed, preservative free, for adult use (2 Lf of tetanus toxoid and 2 Lf of diphtheria toxoid) Jimmy Ramos APRN.CNP Work Phone: [facility] 07-22-2011 pneumococcal polysaccharide vaccine, 23 valent Jimmy Ramos APRN.[facility] Work Phone: [facility] Payers Date Payer Category Payer Medicare [id number] 2024 Self-pay [id number] 2023 Private Health Insurance [facility] [id number] 2023 Unknown [id number] 2022 Medicaid [id number] 2013 Unknown [id number] 2013 Unknown [id number] Unknown [id number]. 462 Unknown [id number]. 462 Unknown [id number]. 462 Unknown [id number]. 462 Unknown [id number]. 462 Unknown [id number]. 462 Unknown [id number]. 462 Unknown [id number]. 462 Unknown [id number]. 462 Unknown [id number]. 462 Unknown [id number]. 462 Unknown [id number]. 462 Unknown [id number]. 462 Unknown [id number]. 462 Unknown [id number]. 462 Unknown [id number]. 462 Social History Date Type Detail Facility Start: 10-06-2019 End: 05-22-2025 Tobacco smoking status WIIS Never smoker [facility] Start: 10-06-2019 Alcohol intake Ex-drinker (finding) [place], [place] Start: 10-06-2019 Alcohol Comment Last drinking 1993, Hx EtOH 10 years, never attended AA program [place], [place] Start: 1960 Sex Assigned At Not on file [place] Start: 03-02-2022 End: 03-09-2024 Tobacco smoking status [facility] Unknown if ever smoked [facility] Start: 05-16-2021 Rare [facility] Start: 11-25-2020 None [facility] Start: 11-24-2020 Alone [facility] Start: 05-16-2021 Non-smoker [facility] Start: 1960 Sex Assigned At Male [facility] Start: 08-18-2023 Tobacco use and exposure Former smokeless tobacco user [facility] End: 07-01-1978 History of tobacco use User of smokeless tobacco [facility] Start: 08-18-2023 End: 12-14-2024 Alcohol intake Current non-drinker of alcohol (finding) [facility] Start: 10-05-2020 End: 08-18-2023 History of Social function [facility] Start: 10-05-2020 End: 08-18-2023 Tobacco use panel [facility] Adult Depression Screening Assessment 5 [facility] Start: 08-18-2023 Tobacco Comment Quit when he s wallowed a wad of chew playing baseball! [facility] Start: 02-16-2025 Sex Male (finding) [facility] Medical Equipment Procedure Code Equipment Code Equipment Origin al Text Equipment Identifier Dates [id number], [id number] Start: 09-16-2017 Comment on above: Test blood sugar(s) 4 times daily. Dx: 250.02. InsulinDependent: Yes Use once daily with Lantus Goals Date Patient Goal Desired Activity /State Functional Status Date Assessment Result Facility 03-20-2022 Functional status Up ad hailee [facility] Work Phone: 01-07-2022 Functional status Ambulates [facility] Work Phone: 03-17-2015 Are you deaf, or do you have serious difficulty hearing No 03/17/2015 2:45 PM EDT Chantelle Jarrett Ma No [facility] 03-17-2015 Are you blind, or do you have serious difficulty seeing, even when wearing glasses No 03/17/2015 2:45 PM EDT Chantelle Jarrett Ma No [facility] 03-17-2015 Do you have serious difficulty walking or climbing stairs No 03/17/2015 2:45 PM EDT Chantelle Jarrett Ma No [facility] 03-17-2015 Do you have difficul ty dressing or bathing No 03/17/2015 2:45 PM EDT Chantelle Jarrett Ma No [facility] 03-17-2015 Because of a physica l, mental, or emotional condition, do you have difficulty doing errands alone such as visiting a physician's office or shopping No 03/17/2015 2:45 PM EDT Chantelle Jarrett Ma No [facility] Mental Status Date Assessment Result Facility 05-22-2025 Cognitive function Level Of Cons ciousness Awake;Alert;Appropriate;Fol lows Commands [facility] Work Phone: 02-16-2025 Cognitive function Follows Commands;Drows y [facility] Work Phone: 12-08-2024 Cognitive function Awake;Alert;Appropriat e [facility] Work Phone: 10-30-2024 Cognitive function Awake;Alert;Appropriat e [facility] Work Phone: 10-19-2024 Cognitive function Awake;Alert;A ppropriate;Fol lows Commands [facility] Work Phone: 02-07-2024 Cognitive function Level Of Cons ciousness Awake;Alert;Appropriate;Fol lows Commands [facility] Work Phone: 01-26-2024 Cognitive function Level Of Cons ciousness Awake;Alert;Appropriate;Fol lows Commands [facility] Work Phone: 12-25-2023 Cognitive function Level Of Cons ciousness Awake;Alert;Appropriate;Fol lows Commands [facility] Work Phone: 12-08-2023 Cognitive function Level Of Cons ciousness Awake;Alert;Appropriate;Fol lows Commands [facility] Work Phone: 11-22-2023 Cognitive function Level Of Cons ciousness Awake;Alert;Follows Commands [facility] Work Phone: 07-29-2023 Cognitive function Level Of Cons ciousness Awake;Alert;Appropriate;Fol lows Commands [facility] Work Phone: 12-10-2022 Cognitive function Level Of Cons ciousness Awake;Alert;Appropriate;Fol lows Commands [facility] Work Phone: 10-30-2022 Cognitive function Level Of Cons ciousness Awake;Alert;Appropriate;Fol lows Commands;Drowsy [facility] Work Phone: 08-07-2022 Cognitive function Level Of Cons ciousness Awake;Alert;Appropriate;Fol lows Commands [facility] Work Phone: 03-20-2022 Cognitive function Level Of Cons ciousness Drowsy [facility] Work Phone: 03-19-2022 Cognitive function [facility] Work Phone: 03-19-2022 Cognitive function Level Of Cons ciousness Awake;Appropriate;Follows Commands [facility] Work Phone: 01-06-2022 Cognitive function Voice/Name [facility] Work Phone: 03-17-2015 Because of a physica l, mental, or emotional condition, do you have serious difficulty concentrating, remembering, or making decisions No 03/17/2015 2:45 PM EDT Chantelle Jarrett Ma [facility] Clinical Notes 10-13-2015 to 04-21-2025 Ion Alfaro, DYSLEXIA TEACHER.[facility] - 12/14/2024 9:32 AM ESTRCristina helms - 05/10/2024 8:10 PM EDMike [facility] - 05/10/2024 8:10 PM EDRosa Huitron DYSLEXIA TEACHER.[facility] - 05/10/2024 7:47 PM EDT Note Date & Type Note Facility 04-21-2025 Discharge summary [facility] 04-21-2025 Radiology Diagnostic study note [facility] Imaging Services [address], [place] [address] Knee 4 or More Views MR#: [id number] Acct: [id number] Name: JERALD YODER Rep #: [id number] : 1960 M 65 From: Pet er Peer PCP: Care Physician,No Primary Status: REG ER Study:Knee 4 or More Views Date of Exam: 04/21/25 Exam# [id number] Ordering Dr: Zuleyka Calle MD PROCEDURE: KNEE 4 OR MORE VIEWS 04/21/2025 REASON FOR EXAM: INJURY/PAIN Initial encounter TECHNIQUE: KNEE 4 OR MORE VIEWS COMPARISON: None. FINDINGS: Bones: No fracture. No dislocation. Joints: Cartilage thinning and periarticular osteophytes indicate osteoarthritis Effusion: None. Soft tissues: Unremarkable Other: RAD/Knee 4 or More Views IMPRESSION: No acute process detected. Reading [facility] CC: Dr. Ar Calle MD; No Primary Care Physician ~ Tugboat Pilot: Signed [facility] 02-16-2025 Radiology Diagnostic study note [facility] 12-14-2024 Note HNO ID: [id number] Author: ION ALFARO APRN.ROTARY PEEL OVEN TENDER Service: ? Author Type: Nurse Practitioner Type: Progress Notes Filed: 12/14/2024 09:40 Note Text: This note was created using Appiny. Subjective Jerald Yoder is a 64 year [...] SPRAY,SUSPENSION - CETIRIZINE 10 MG TABLET Ion Antelmo, DYSLEXIA TEACHER.ROTARY PEEL OVEN TENDER [facility] 12-14-2024 History of Present illness Narrative This note was created using Appiny. Subjective Jerald Yoder is a 64 year [...] SPRAY,SUSPENSION - CETIRIZINE 10 MG TABLET Ion Moomaw, DYSLEXIA TEACHER.ROTARY PEEL OVEN TENDER documented in this encounter [facility] 05-10-2024 Nurse Note Ambulatory Ear Lavage Pre-treatment: Warm water Treatment: Both ears Equipment and Irrigation solution and Volume used: Single use syringe with single use irrigation tip Return flow appearance: Brown Patient tolerated procedure: yes Tympanic membrane assessment: Tympanic membrane assessed by LIP pre-procedure Josef Lee APRN [facility] 05-10-2024 Nurse Note Ambulatory Ear Lavage Pre-treatment: Warm water Treatment: Both ears Equipment and Irrigation solution and Volume used: Single use syringe with single use irrigation tip Return flow appearance: Brown Patient tolerated procedure: yes Tympanic membrane assessment: Tympanic membrane assessed by LIP pre-procedure Josef Lee APRN documented in this encounter [facility] 05-10-2024 Note HNO ID: [id number] Author: ROSA QUINONES APRN.CNP Service: ? Author Type: Nurse Practitioner Type: Progress Notes Filed: 05/11/2024 08:47 Note Text: This note was created using Viralicariter. Subjective Jerald Yoder is a 64 year [...] or chills Denies using homeopathic or OTC MICROBIOLOGY QUALITY CONTROL TECHNICIAN. Requesting ear irrigation. The history is provided by the patient. No automotive parts interpreter was used. Ear Problem There is pain [...] Colon polyp 2013 adenomatous Coronary artery disease DC in 1994 Diabetic neuropathy (HCC) DM (diabetes [...] and sore throat. (more content not included)... [facility] 05-10-2024 History of Present illness Narrative This note was created using Viralicariter. Subjective Jerald Yoder is a 64 year [...] or chills Denies using homeopathic or OTC MICROBIOLOGY QUALITY CONTROL TECHNICIAN. Requesting ear irrigation. The history is provided by the patient. No automotive parts interpreter was used. Ear Problem There is pain [...] Colon polyp 2013 adenomatous Coronary artery disease DC in 1994 Diabetic neuropathy (HCC) DM (diabetes [...] daily before breakfast. flash glucose scanning reader (SiO2 FactorySTYLE CLAUDIA 14 DAY READER) misc 1 Device [...] normal. - AMBULATORY EAR LAVAGE/IRRIGATION Rosa Quinones APRN.ROTARY PEEL OVEN TENDER documented in this encounter [facility] 02-07-2024 Discharge summary Note Date/Time February 07, 2024 9:10 pm [facility] Medical Records Department [address] [place] [address] Emergency Department Summary 02/07/24 MR#: [id number] Acct: [id number] Name: JERALD YODER Rep #:[id number] : [...] nausea or vomiting. Denies diarrhea or constipation. [facility] Medical History Back pain due to [...] 73.2 H Lymph % (Auto) 17.4 L Crawford % (Auto) 5.4 Eos % (Auto) 3.1 [...] Clarity Clear Urine pH 6.0 Ur Specific Avalon 1.015 Urine Protein 15 H Urine Glucose [...] (Auto) Neut % (Auto) Lymph % (Auto) Crawford % (Auto) Eos % (Auto) Baso % (Auto) Absolute Neuts (auto) Absolute Lymphs (auto) Nucleated RBC % Sodium Potassium Chloride Carbon Dioxide Anion Gap BUN Creatinine Estim Creat Clear Calc Est GFR (MDRD) Af Amer Est GFR (MDRD) Non-Af BUN/Creatinine Ratio Glucose Calcium Total Bilirubin AST ALT Alkaline Phosphatase Total Protein Albumin Globulin Albumin/Globulin Ratio Urine Color Urine Clarity Urine pH Ur Specific Avalon Urine Protein Urine Glucose (UA) Urine Ketones [...] your Primary Care Provider. Call [facility] ([phone]) or report to the closest Emergency Room. Call 911 if necessary. 02/08/24 0012 <Electronically signed by Keenan Wu DO> Cosigner Signature (if applicable): CC: Dr. Linden Chavez, DO ~ Signed [facility] Work Phone: 1(767) 152-420701-23-2024 Discharge summary Author Barry Mathew [facility] November 22, 2023 5:13pm Note Date/Time November 22, 2023 3 :08pm [facility] Medical Records Department [address] [place] [address] Emergency Department Summary 11/22/23 MR#: [id number] Acct: [id number] Name: JERALD YODER Rep #:[id number] : 1960 63 From: Barry Mathew MD PCP: Dr. Linden Chavez, Status:REG ER Location: ED HPI History of [...] states that while he was at his jjfodkj-ze-kgc's, he felt weak and fell, but did not hurt himself. He presents via EMS with generalized weakness. He states he has been eating and drinking well, to the point where he had 4 hotdogs prior to arrival. He denies any chestpain or shortness of breath. No exacerbating or alleviating factors. [facility] Medical History Back pain due to [...] not feel that he requires observation. His jnbibmr-jw-rsk is here. They are comfortable with discharge. [...] 70.9 H Lymph % (Auto) 18.9 L Crawford % (Auto) 5.0 Eos % (Auto) 4.5 [...] Sl. Cloudy Urine pH 5.0 Ur Specific Avalon 1.020 Urine Protein 15 H Urine Glucose [...] your Primary Care Provider. Call [facility] ([phone]) or report to the closest Emergency Room. Call 911 if necessary. 11/22/233 <Electronically signed by Barry Mathew MD> Cosigner Signature (if applicable): CC: Dr. Linden Chavez, ~ Signed [facility] Work Phone: 1(876) 140-574711-30-2023 Discharge summary [facility] 29, 2023 11:33pm Note Date/Time September 29, 2023 9:05pm [facility] Medical Records Department [address] [place] [address] Emergency Department Summary 09/29/23 MR#: [id number] Acct: [id number] Name: JERALD YODER Rep #:[id number] : 1960 63 From: Barry Mathew MD PCP: Dr. Linden Chavez DO Status:REG ER Location: ED HPI History of Present Illness Chief Complaint: Nausea/Vomiting/Diarrhea Narrative Narrative: 63-year-old male past medical history of hypertension, presents with nausea and diarrhea that he has had for the last 5 hours. He states he ate at the [employer] and had a salad with 6 ranch [...] No chest pain or shortness of breath. [facility] Medical History Back pain due to [...] 78.5 H Lymph % (Auto) 13.5 L Crawford % (Auto) 5.2 Eos % (Auto) 1.7 [...] your Primary Care Provider. Call [facility] ([phone]) or report to the closest Emergency Room. Call 911 if necessary. 09/29/232332 <Electronically signed by Barry Mathew MD> Cosigner Signature (if applicable): CC: Dr. Linden Chavez DO ~ Signed [facility] Work Phone: 1(942) 191-649210-19-2023 History of Present illness Narrative* Jimmy Ramos, SANDRA.ROTARY PEEL OVEN TENDER - 08/18/2023 4:12 PM EDT Subjective HPI [...] Colon polyp 2013 adenomatous Coronary artery disease DC in 1994 Diabetic neuropathy (HCC) DM (diabetes [...] of care. This note was generated using HRBoss software. It may contain errors in wording, punctuation, or spelling. Jimmy Ramos APRN.ROTARY PEEL OVEN TENDER [facility] Wu [facility] December 11, 2022 9:32pm Note Date/Time December 11, 2022 4:55pm [facility] Medical Records Department [address] [place] [address] Emergency Department Summary 12/11/22 MR#: [id number] Acct: [id number] Name: JERALD YODER FLETCHER Rep #:[id number] : 1960 62 From: [...] Hassan but has not made an appointment. [facility] Medical History Back pain due to [...] % (Auto) 67.1 Lymph % (Auto) 22.4 Crawford % (Auto) 6.1 Eos % (Auto) 3.4 [...] Color Urine Clarity Urine pH Ur Specific Avalon Urine Protein Urine Glucose (UA) Urine Ketones [...] (Auto) Neut % (Auto) Lymph % (Auto) Crawford % (Auto) Eos % (Auto) Baso % [...] Clarity Clear Urine pH 6.0 Ur Specific Avalon 1.015 Urine Protein 15 H Urine Glucose [...] 17:32 EST Reading Location ID and State: [address] [place] [address] Tel [phone], Service support , Discharge Plan Triage Chief [...] Primary Care Provider: Iván Hassan Referrals: Linden Chavez, [Med Staff - Blade Filer] - As soon as possible Disposition Disposition: Home, Self Care What to do if you have Problems For any increased pain, shortness of breath, bleeding, nausea or vomiting, chestpain, or any unexpected problems, contact your Primary Care Provider. Call [facility] ([phone]) or report to the closest Emergency Room. Call 911 if necessary. 12/11/222131 <Electronically signed by Keenan Wu DO> Cosigner Signature (if applicable): CC: Dr. Iván Hassan MD ~ Signed [facility] Work Phone: 1([phone]) 157-798201-26-[address] Calle [facility] November 25, 2022 3:03pm Note Date/Time November 25, 2022 1 :30pm [facility] Medical Records Department [address] [place] [address] Emergency Department Summary 11/25/22 MR#: [id number] Acct: [id number] Name: JERALD YODER Rep #:[id number] : [...] infectious symptoms. He denies chest pain, dyspnea, [place] exertion, orthopnea PND. He does endorse crampy [...] Plan Triage Chief Complaint: Nausea/Vomiting/Diarrhea ED Provider: Calle,Ar Dx/Rx/DC Orders Clinical Impression: Abdominal pain, vomiting, [...] on your insurance card issued to you [facility] 2. Increase fluid intake today 3. You need to take your medication as prescribed and you need to be compliant with your diet Disposition Disposition: Home, Self Care What to do if you have Problems For any increased pain, shortness of breath, bleeding, nausea or vomiting, chestpain, or any unexpected problems, contact your Primary Care Provider. Call [facility] ([phone]) or report to the closest Emergency Room. Call 911 if necessary. 11/25/22 1503 <Electronically signed by Ar Calle MD> Cosigner Signature (if applicable): CC: No Primary Care Physician ~ Signed [facility] Work Phone: [phone]) 168-547812-14-2015 History of Past illness Narrative* Problem Noted Date Diagnosed Date Resolved Date Ankle fracture, left 10/13/2015 017 COPD (chronic obstructive pulmonary disease) 1 11/17/2019 documented as of this encounter (statuses as of 08/18/2023) [facility]. Chavez [facility] January 18, 2023 9:52am Note Date/Time January 18, 2023 8:1 7am [facility] Medical Records Department [address] [place] [address] Emergency Department Summary 01/18/23 MR#: [id number] Acct: [id number] Name: JERALD YODER Rep #:[id number] : [...] he feels lightheaded when he stands up. [facility] Medical History Back pain due to [...] history of alcohol abuse. Medications: Reviewed in [employer], the nurse had just gone over them [...] 71.9 H Lymph % (Auto) 18.0 L Crawford % (Auto) 6.8 Eos % (Auto) 2.6 [...] your Primary Care Provider. Call [facility] ([phone]) or report to the closest Emergency Room. Call 911 if necessary. 01/18/2352 <Electronically signed by Bernard Chavez MD> Cosigner Signature (if applicable): CC: Dr. Linden Chavez DO ~ Signed [facility] Work Phone: Discharge summary Author [facility] March 08, 2024 8:59am Note Date/Time March 08, 2024 8:14am [facility] Medical Records Department [address] [place] [address] Emergency Department Summary 03/08/24 MR#: [id number] Acct: [id number] Name: JERALD YODER Rep #:[id number] : [...] therefore comes to the hospital for evaluation. [facility] Medical History Back pain due to [...] % (Auto) 65.4 Lymph % (Auto) 22.8 Crawford % (Auto) 6.9 Eos % (Auto) 3.9 [...] your Primary Care Provider. Call [facility] ([phone]) or report to the closest Emergency Room. Call 911 if necessary. 03/08/24 0859 <Electronically signed by Johann Lemons DO> Cosigner Signature (if applicable): CC: Dr. Linden Chavez DO ~ Signed [facility] Work Phone: Discharge summary Author Ar Calle [facility] Note Date/Time April 21, 2025 1:09 pm [facility] Medical Records Department [address] [place] [address] Emergency Department Summary 04/21/25 MR#: [id number] Acct: [id number] Name: JERALD YODER Rep #:[id number] : [...] Prior similar symptoms: No Recent Illness/Hospitalization: No PFSH PFSH Medical History Partial traumatic [...] IMPRESSION: No acute process detected. Reading [facility] Treatment and Re-Evaluation Narrative: [...] left knee, initial encounter, Coronary atherosclerosis of [place] coronary artery, Essential hypertension, HLD (hyperlipidemia), History [...] your insurance card issued to you by [employer] Language: Salvadorean Disposition Disposition: Home, Self Care What to do if you have Problems For any increased pain, shortness of breath, bleeding, nausea or vomiting, chestpain, or any unexpected problems, contact your Primary Care Provider. Call [facility] ([phone]) or report to the closest Emergency Room. Call 911 if necessary. 04/21/25 4969 <Electronically signed by Ar Calle MD> Cosigner Signature (if applicable): CC: No Primary Care Physician ~ Signed [facility] Work Phone: Evaluation note* Diagnosis Onset Date Resolution Status Abdominal pain resolved Diarrhea resolved Gastroparesis resolved Hyperglycemia resolved [facility] Work Phone: Evaluation note* Diagnosis Onset Date Resolution Status Abdominal pain resolved Diarrhea resolved Gastroparesis resolved Hyperglycemia resolved Acute diarrhea acute Generalized weakness acute Transient hypotension acute [facility] Work Phone: Evaluation note* Diagnosis Onset Date Resolution Status Abdominal pain resolved Diarrhea resolved Gastroparesis resolved Hyperglycemia resolved Acute diarrhea resolved Generalized weakness resolve d Transient hypotension resolv ed [facility] Work Phone: Evaluation note* Diagnosis Onset Date Resolution Status Acute diarrhea resolved Generalized weakness resolve d Transient hypotension resolv ed [facility] Work Phone: Evaluation noteNo assessment information available [facility] Work Phone: Evaluation note* Diagnosis Bilateral impacted cerumen- Primary Impacted cerumen [facility]* Diagnosis Bilateral impacted cerumen- Primary Impacted cerumen [facility]* Diagnosis Eustachian tube dysfunction, bilateral- Primary [facility] Work Phone[facility] Work Phone: Hospital Discharge instructions Additional Instructions 1. The name of your doctor is located on your insurance card issued to you from [facility] 2. Increase fluid intake today 3. You need to take your medication as prescribed and you need to be compliant with your [facility] Work Phone: Hospital Discharge instructions Additional Instructions Blood glucose 250. Labs stable EKG normal. Continue oral fluids. Follow-up with your doctor to restart heart your medications.[facility] Work Phone: Hospital Discharge instructions Additional Instructions Laboratory studies stable glucose 340s with no signs of DKA. Insulin with improvement down to 130s. Continue oral fluids for hydration. Follow-up with your doctor. Return if worsening symptoms.[facility] Work Phone: Hospital Discharge instructions Additional Instructions Pepto-Biserasmol will turn his stools black. This is an expected side effect of that medication, you are testing negative for blood, so likely due to that medication. If you take it in the future and to turn your stool black temporarily, you do not need to be concerned. If you see blood return to the ER.[facility] Work Phone: Hospital Discharge instructions Additional Instructions Your CT showed no broken bones. Use ice and take vfpa-zqe-wuzbjoc Tylenol and Motrin as needed for pain.[facility] Work Phone: Hospital Discharge instructions Additional Instructions Your CT scan showed no sign of bowel blockage. It did show changes consistent with constipation . Take MiraLAX as directed every day to prevent these recurrent issues . please keep yourself well-hydrated and continue to take your diabetic medication as directed. Return to the ER should you have any further concerns.[facility] Work Phone: Hospital Discharge instructions Additional Instructions When you get home drink half the bottle of magnesium citrate. If you do not have a bowel movement in 4 hours finished the bottle. Once the magnesium citrate is stimulated bowel movement continue to the MiraLAX daily to help with recurrent bowel movements and resolve your constipation.[facility] Work Phone: Hospital Discharge instructions Additional [...] the ER should you have any further concernsW[facility]Mer[facility] Work Phone: Hospital Discharge instructions Additional Instructions Thank you for trusting us with your care today! Please take Tylenol (2 pills, 650 mg), ibuprofen (2 pills, 400 mg) every 6 hours as needed for pain and fever control. Please return to the emergency department if your symptoms change or worsen. Please follow with your primary care physician for further outpatient evaluation and management.[facility] [facility] Work Phone: Hospital Discharge instructions Additional Instructions Call your doctor for follow-up. The name of your doctor is located on your insurance card issued to you by [facility] Work Phone: Hospital Discharge instructionsAdditional Instructions [...] high. Take all of the antibiotics as prescribed.[facility] Work Phone: Hospital Discharge instructionsAdditional Instructions Please stop taking ibuprofen or other NSAIDs as this can irritate to the stomach. There was microscopic blood in your stool today and you had a very mild anemia. You been started on an antacid. Possibly could have some subtle GI bleeding going on. Please follow-up closely with GI. Call the office to make an appointment and we will get you when in the next week. Let them know you are seen in the ER and told you need to come follow-up quickly.[facility] Work Phone: Reason for referral (narrative)No reason for referral information availableWThe [facility] Work Phone: Hospital Course * Zahira [...] DISCHARGE MEDICATIONS: Jerald Yoder Home Medication Instructions IFEOMA:[id number] Printed on:10/06/19 1522 Medication Information aspirin 81 [...] Complexity: follow up within 7-14 calendar days (75809) [] Severe Complexity: follow up within 7 calendar days (74235) FOLLOW UP TESTING, PENDING RESULTS OR REFERRALS [...] at most local grocery stores, pharmacies, and Delivery Agent-stores. ? If you have any questions about [...] be monitored and followed by the diet metallurgical lab technician. 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 Hostess Expl anation Advance Directives and Living Will Power of Meat Counter Worker Latest Code Status on File Code Status Date Activated Date Inactivated Comments Full Code 10/06/2019 11:12 AM Full Code 10/05/2019 5:27 PM 10/06/2019 11:12 AM Advance Directive Response Recorded Date/ Time Advance Directives No November 30, 2016 10:29am Living Will No March 02, 2022 7: 27pm Power of Meat Counter Worker No March 02, 2022 7:27pm Advance Directive Response Recorded Date/ Time Advance Directives No November 30, 2016 10:29am Living Will No March 19, 2022 5 :35pm Power of Meat Counter Worker No March 19, 2022 5:35pm Advance Directive Response Recorded Date/ Time Advance Directives No November 30, 2016 10:29am Living Will No March 19, 2022 1 1:38pm Power of Meat Counter Worker No March 19, 2022 11:38pm Advance Directive Response Recorded Date/ Time Advance Directives No November 30, 2016 10:29am Living Will No April 26, 2022 2:33pm Power of Meat Counter Worker No April 26 2:33pm Advance Directive Response Recorded Date/ Time Advance Directives No November 30, 2016 10:29am Living Will No May 26, 2022 1:38am Power of Meat Counter Worker No May 26 1:38am Advance Directive Response Recorded Date/ Time Advance Directives No November 30, 2016 10:29am Living Will No July 02 022 9:45pm Power of Meat Counter Worker No July 02, 2022 9:45pm Advance Directive Response Recorded Date/ Time Advance Directives No November 30, 2016 10:29am Living Will No August 07 6:50pm Power of Meat Counter Worker No August 07 6:50pm Advance Directive Response Recorded Date/ Time Advance Directives No November 30, 2016 9:29am Living Will No September 18 022 10:57am Power of Meat Counter Worker No September 18, 2022 10:57am Advance Directive Response Recorded Date/ Time Advance Directives No November 30, 2016 9:29am Living Will No November 25 2:07pm Power of Meat Counter Worker No November 25, 2022 2:07pm Advance Directive Response Recorded Date/ Time Advance Directives No November 30, 2016 9:29am Living Will No December 10 023 9:57am Power of Meat Counter Worker No December 10, 2022 9:57am Advance Directive Response Recorded Date/ Time Advance Directives No November 30, 2016 9:29am Living Will No December 11, 2 023 4:20pm Power of Meat Counter Worker No December 11, 2022 4:20pm Advance Directive Response Recorded Date/ Time Advance Directives No November 30, 2016 10:29am Living Will No January 18, 2023 8:03am Power of Meat Counter Worker No January 18 8:03am Advance Directive Response Recorded Date/ Time Advance Directives No November 30, 2016 10:29am Living Will No March 07, 2023 1: 12am Power of Meat Counter Worker No March 07, 2023 1:12am Advance Directive Response Recorded Date/ Time Advance Directives No November 30, 2016 10:29am Living Will No May 12, 2023 3:57pm Power of Meat Counter Worker No May 12 3:57pm Advance Directive Response Recorded Date/ Time Advance Directives No November 30, 2016 10:29am Living Will No August 26 5:10am Power of Meat Counter Worker No August 26, 2023 5:10am Advance Directive Response Recorded Date/ Time Advance Directives No November 30, 2016 9:29am Living Will No September 29 023 8:45pm Power of Meat Counter Worker No September 29, 2023 8:45pm Advance Directive Response Recorded Date/ Time Advance Directives No November 30, 2016 9:29am Living Will No September 30 11:40pm Power of Meat Counter Worker No September 30, 2023 11:40pm Advance Directive Response Recorded Date/ Time Advance Directives No November 30, 2016 9:29am Living Will No November 22 2:25pm Power of Meat Counter Worker No November 22, 2023 2:25pm Advance Directive Response Recorded Date/ Time Advance Directives No November 30, 2016 9:29am Living Will No December 08 12:56pm Power of Meat Counter Worker No December 08, 2023 12:56pm Advance Directive Response Recorded Date/ Time Advance Directives No November 30, 2016 9:29am Living Will No December 18 024 4:23pm Power of Meat Counter Worker No December 18, 2023 4:23pm Advance Directive Response Recorded Date/ Time Advance Directives No November 30, 2016 9:29am Living Will No December 25 024 8:47am Power of Meat Counter Worker No December 25, 2023 8:47am Advance Directive Response Recorded Date/ Time Advance Directives No November 30, 2016 10:29am Living Will No December 25 024 9:47am Power of Meat Counter Worker No December 25, 2023 9:47am Advance Directive Response Recorded Date/ Time Advance Directives No November 30, 2016 10:29am Living Will No January 26, 2024 11:41pm Power of Meat Counter Worker No January 25 11:41pm Advance Directive Response Recorded Date/ Time Advance Directives No November 30, 2016 10:29am Living Will No February 07, 2024 7:17pm Power of Meat Counter Worker No February 06 7:17pm Advance Directive Response Recorded Date/ Time Advance Directives No November 30, 2016 10:29am Living Will No March 08, 2024 6: 24am Power of Meat Counter Worker No March 08, 2024 6:24am Advance Directive Response Recorded Date/ Time Advance Directives No November 30, 2016 10:29am Living Will No March 09, 2024 1 :35am Power of Meat Counter Worker No March 09, 2024 1:35am Advance Directive Response Recorded Date/ Time Living Will No October 19, 024 4:56am Do you have a Healthcare Power of Meat Counter Worker? No October 19, 2024 4:56am Living Will No December 20 025 6:56pm Do you have a Healthcare Power of Meat Counter Worker? No December 20, 2024 6:56pm Living Will No October 30, 024 1:19am Do you have a Healthcare Power of Meat Counter Worker? No October 30, 2024 1:19am Living Will No November 27 2:38pm Do you have a Healthcare Power of Meat Counter Worker? No November 27, 2024 2:38pm Living Will No December 08 1:33pm Do you have a Healthcare Power of Meat Counter Worker? No December 08, 2024 1:33pm Living Will No December 27 025 2:11am Do you have a Healthcare Power of Meat Counter Worker? No December 27, 2024 2:11am Living Will No February 16, 2025 4:01am Do you have a Healthcare Power of Meat Counter Worker? No February 16, 2025 4:01am Advance Directives No November 30, 2016 10:29am Advance Directive Response Recorded Date/ Time Living Will No December 20 025 6:56pm Do you have a Healthcare Power of Meat Counter Worker? No December 20, 2024 6:56pm Living Will No November 27 2:38pm Do you have a Healthcare Power of Meat Counter Worker? No November 27, 2024 2:38pm Living Will No December 08 1:33pm Do you have a Healthcare Power of Meat Counter Worker? No December 08, 2024 1:33pm Living Will No December 27 025 2:11am Do you have a Healthcare Power of Meat Counter Worker? No December 27, 2024 2:11am Living Will No February 16, 2025 4:01am Do you have a Healthcare Power of Meat Counter Worker? No February 16, 2025 4:01am Do you have a Healthcare Power of Meat Counter Worker? No March 26, 2025 9:53pm Advance Directives No November 30, 2016 10:29am Advance Directive Response Recorded Date/ Time Living Will No December 27, 2:11am Do you have a Healthcare Power of Meat Counter Worker? No December 27, 2024 2:11am Living Will No February 16, 2025 4:01am Do you have a Healthcare Power of Meat Counter Worker? No February 16, 2025 4:01am Do you have a Healthcare Power of Meat Counter Worker? No March 26, 2025 9:53pm Do you have a Healthcare Power of Meat Counter Worker? No April 21, 2025 10:50am Advance Directives No November 30, 2016 10:29am Advance Directive Response Recorded Date/ Time Living Will No February 16, 2025 4:01am Do you have a Healthcare Power of Meat Counter Worker? No February 16, 2025 4:01am Do you have a Healthcare Power of Meat Counter Worker? No March 26, 2025 9:53pm Do you have a Healthcare Power of Meat Counter Worker? No April 21, 2025 10:50am Advance Directives No November 30, 2016 10:29am Advance Directive Response Recorded Date/ Time Living Will No February 16, 2025 4:01am Do you have a Healthcare Power of Meat Counter Worker? No February 16, 2025 4:01am Do you have a Healthcare Power of Meat Counter Worker? No March 26, 2025 9:53pm Do you have a Healthcare Power of Meat Counter Worker? No April 21, 2025 10:50am Do you have a Healthcare Power of Meat Counter Worker? No May 03, 2025 12:24pm Advance Directives No November 30, 2016 10:29am Advance Directive Response Recorded Date/ Time Living Will No February 16, 2025 4:01am Do you have a Healthcare Power of Meat Counter Worker? No February 16, 2025 4:01am Do you have a Healthcare Power of Meat Counter Worker? No March 26, 2025 9:53pm Do you have a Healthcare Power of Meat Counter Worker? No April 21, 2025 10:50am Do you have a Healthcare Power of Meat Counter Worker? No May 03, 2025 12:24pm Do you have a Healthcare Power of Meat Counter Worker? No May 22, 2025 7:01am Advance Directives No November 30, 2016 10:29am [...] OF MEDS May 03, 2025 11:27 am Chief Complaint Admit Date doesn't feel good February 16, 2025 4:0 1am back pain, restless legs March 26, 2025 8:08pm FALL April 21, 2025 10:5 0am OUT OF MEDS May 03, 2025 11:27 am weakness May 22, 2025 7:01 am Chief Complaint Admit Date doesn't feel good February 16, 2025 4:0 1am back pain, restless legs March 26, 2025 8:08pm FALL April 21, 2025 10:5 0am OUT OF MEDS May 03, 2025 11:27 am weakness May 22, 2025 7:01 am ER FOLLOW UP - BLEEDING May 23, 2025 11:09am Additional Source Comments (unrecognized sect ion and content) No Status Records FoundNo Status Records FoundNo Status Records Found INFORMATION SOURCE (unrecogn ized section and content) DATE CREATED AUTHOR 10/14/2019 [facility] DATE CREATED AUTHOR AUTHOR'S ORGANIZ ATION 12/16/2024 [facility] DATE CREATED AUTHOR AUTHOR'S ORGANIZ ATION 05/25/2025 [facility] Goals (unrecognized section and content) Goals [...] Member Role Status Dates Dr. Linden Chavez , DO Primary Care Provider Active Dr. Keenan Wu , DO Attending Provider, Emergency Provider Active Team Status: Inactive Member Role Status Dates Dr. Linden Chavez DO Primary Care Provider Active Dr. Buster Pereyra DO Emergency Provider Active Team Status: Inactive Member Role Status Dates Dr. Linden Chavez DO Primary Care Provider Active Dr. Buster Pereyra DO Attending Provider, Emergency P romalider Active Team Status: Inactive Member Role Status [...] Member Role/Relationship Status Dates Dr. Linden Chavez , DO Primary Care Provider Active Start: May 03, 2025 End: May 03, 2025 Dr. Perdo Krishnan , DO Emergency Provider Active Start: May 03, 2025 End: May 03, 2025 Team Status: Inactive Member Role/Relationship Status Dates Dr. Linden Chavez , DO Primary Care Provider Active Start: May 03, 2025 End: May 03, 2025 Dr. Pedro Krishnan , DO Attending Provider Active Start: May 03, 2025 End: May 03, 2025 Dr. Pedro Krishnan , DO Emergency Provider Active Start: May 03, 2025 End: May 03, 2025 Team Status: Inactive Member Role/Relationship Status Dates Dr. Linden Chavez , Primary Care Provider Active Start: May 22, 2025 End: May 22, 2025 Dr. Antonette Dominguez , DO Emergency Provider Active Start: May 22, 2025 End: May 22, 2025 Team Status: Inactive Member Role/Relationship Status Dates Dr. Linden Chavez DO Primary Care Provider Active Start: May 23, 2025 End: May 23, 2025 Dr. Linden Chavez , DO Referring Provider Active Start: May 23, 2025 End: May 23, 2025 HENNA Pearson Attending Provider Active S tart: May 23, 2025 End: May 23, 2025 Source Comments (unrecognize d section and content) In the event this informatio n is protected by the Federal Confidentiality of Alcohol and Drug Abuse Patient Records regulations: The Federal rules restrict any use of the information to criminally investigate or prosecute any alcohol or drug abuse patient.[facility] the event this information is protected by the Federal Confidentiality of Alcohol and Drug Abuse Patient Records regulations: The Federal rules restrict any use of the information to criminally investigate or prosecute any alcohol or drug abuse patient.[facility] the event this information is protected by the Federal Confidentiality of Alcohol and Drug Abuse Patient Records regulations: The Federal rules restrict any use of the information to criminally investigate or prosecute any alcohol or drug abuse patient.[facility] Reason for Visit (unrecogniz ed section [...] BE BASED ON THE PRIMARY CLINICAL RECORDS. [employer] [facility]. provides no warranty or guarantee of the accuracy or completeness of information in this document.
[2025-05-29 23:42] LABS: Mucous, Urine 0 SEEN /hpf (<or=2+); Squamous Epithelial Cells - UA 0 SEEN /hpf (0-5)
[2025-05-29 23:51] LABS: Color, Urine Yellow (Yellow); Glucose, Dipstick Normal (Normal); Ketone-Dipstick Negative (Negative); Leukocyte Esterase-Dipstick 500 /ul (Negative); Nitrite-Dipstick Positive (Negative); Occult Blood-Urine 25 /ul (Negative); Protein-Dipstick 30 mg/dl (Negative); Specific Gravity, Urine 1.020 (1.002-1.030); Urine Bilirubin Dipstick Negative (Negative)
[2025-05-30 00:06] LABS: Red Blood Cells-Urine 0-5 SEEN /hpf (0-5)
[2025-05-30 00:22] VITALS: BP 157/87; PULSE 83; RESP 15; TEMP 36.6; O2SAT 97
== END 2025-05-30 00:24 | disposition home or self-care (01) ==
PROVIDERS: Emergency Provider Emergency Medicine; PCP Family Medicine; Visit Provider Emergency Medicine
DX: R10.9 Unspecified abdominal pain (principal); J44.9 Chronic obstructive pulmonary disease, unspecified; Z79.4 Long term (current) use of insulin; E11.9 Type 2 diabetes mellitus without complications; R19.7 Diarrhea, unspecified; L28.2 Other prurigo; I10 Essential (primary) hypertension; E78.00 Pure hypercholesterolemia, unspecified; I25.2 Old myocardial infarction; Z79.84 Long term (current) use of oral hypoglycemic drugs; Z79.82 Long term (current) use of aspirin; Z95.5 Presence of coronary angioplasty implant and graft
CPT/HCPCS: 80053; 81001; 83690; 85025; 87077; 87086; 87088; 87186; 93005; 99283; A4216

== ENCOUNTER 2025-06-03 21:58 | Emergency (ER) | payer MEDICARE, OTHER, MEDICAID, SELFPAY ==
[2025-06-03 21:59] VITALS: BP 102/73; PULSE 80; RESP 18; TEMP 35.7; O2SAT 99; BMI 28.8
--- NOTE | 2025-06-03 22:25 | EDS_ITS ---
HPI History of Present Illness Chief Complaint: Nausea/Vomiting/Diarrhea Informant: patient and friend Narrative Narrative: Patient is a 65-year-old male with past medical history of hypertension hyperlipidemia and insulin-dependent diabetes. He states that he has food intolerances and will get diarrhea frequently. He states that this evening he had a hotdog as well as turkey gravy and after eating this he had 2 bouts of diarrhea. He states it was not dark or bloody in nature. He reports he is sick of this happening and is requesting medication to help prevent his symptoms. He denies any known sick contacts fevers chills or abdominal pain. 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 Esophageal candidiasis Current use of insulin Back pain due to injury Restless legs Injury of head and neck COPD (chronic obstructive pulmonary disease) High cholesterol History of stress test Depression Chronic pain Non-smoker Sleep apnea Diabetes Hyperlipidemia Hypertension Myocardial infarct Home Medications ?Medication ?Instructions ?Recorded ?Last Taken ?Type metformin 500 mg tablet,extended 500 mg PO BID diabete s 05/02/19 03/18/22 History release 24 hr glipizide 5 mg tablet 5 mg PO BID diabetes 2 03/18/22 History insulin glargine 100 unit/mL (3 10 unit subcut BID mya betes 03/19/22 03/18/22 History mL) subcutaneous pen (Lantus Solostar U-100 Insulin) hydrocortisone 1 % topical cream 1 applic topical TID PRN skin 08/26/23 Unknown Rx irritation #28.4 grams ibuprofen 600 mg tablet 600 mg PO Q8H PRN PRN pain # 20 08/26/23 Unknown Rx TABLETS insulin glargine 100 unit/mL 1 unit subcut QPM 3 Unknown History subcutaneous solution (Lantus U-100 Insulin) levothyroxine 100 mcg tablet 100 mcg PO DAILY 09/29/23 Unknown History cyclobenzaprine 10 mg tablet 10 mg PO TID PRN Muscle S pasm #15 08/10/24 Unknown Rx TABLETS aspirin 81 mg tablet,delayed 81 mg PO DAILY 02/16/25 U nknown History release (Adult Aspirin Regimen) doxycycline hyclate 100 mg capsule 100 mg PO BID 7 day s #14 caps 02/16/25 Unknown Rx gabapentin 100 mg capsule 100 mg PO TID #90 caps 04/21 Unknown Rx metformin 500 mg tablet 500 mg PO BID 30 days #60 ta bs 05/03/25 Unknown Rx sulfamethoxazole 800 1 tab PO BID 7 days #14 tabs 05/03/25 Unknown Rx mg-trimethoprim 160 mg tablet (Bactrim DS) pantoprazole 20 mg tablet,delayed 20 mg PO DAILY #30 t abs 05/22/25 Unknown Rx release (Protonix) qarixq-xqaxbrcj-peivldj 1 cap PO TID 05/23/25 Unknow n History 36,000-114,000-180,000 unit capsule,delay rel (Creon) hydroxyzine HCl 25 mg tablet 25 mg PO TID PRN itching #20 tabs 05/29/25 Unknown Rx nitrofurantoin 100 mg PO Q12H 5 days #10 ca ps 05/30/25 Unknown Rx monohydrate/macrocrystals 100 mg capsule (Macrobid) diphenoxylate-atropine 2.5 1 tab PO 4X/DAY PRN diarrhe a 5 06/03/25 Unknown Rx mg-0.025 mg tablet (Lomotil) days #20 tabs Allergy/AdvReac Type Severity Reaction Status Date / Time diphenhydramine HCl (From Allergy Rash Verified 05/29/25 22:05 Benadryl) Penicillins Allergy Rash Verified 05/29/25 22:05 venom-honey bee (bee venom Allergy Swelling Verified 05/29/25 22:05 (honey bee)) Surgical History H/O hernia repair Hx of left knee surgery Hx of inguinal herniorrhaphy History of coronary artery stent placement Social History household members: none Smoking Status: Never smoker substance use type: does not use ROS ROS ED Constitutional Constitutional ED: Denies chills or fever(s) ENT ENT ED: Denies sore throat Cardiovascular Cardiovascular: Denies chest pain Respiratory/Chest Respiratory/Chest: Denies cough or dyspnea Gastrointestinal Gastrointestinal: Reports diarrhea; Denies abdominal pain, melena, nausea or vomiting Musculoskeletal Musculoskeletal: Denies back pain or myalgias Integumentary Denies rash Neurologic Neurologic: Denies headache(s) Hematologic/Lymphatic Hematologic/Lymphatic: Denies easy bleeding or easy bruising EXAM Physical Exam Const Vital Signs: 06/03/25 21:59 Temperature 96.3 F L Temperature Source Temporal Pulse Rate 80 Respiratory Rate 18 Blood Pressure 102/73 Blood Pressure Mean 82 Pulse Ox 99 Oxygen Delivery Method Room Air Positive well nourished and well developed General Appearance ED: well developed; Negative for pallor HEENT Reports moist mucous membranes HEENT Narrative: No tongue or lip swelling no oral lesions no airway edema or compromise; no secondary findings in the posterior pharynx to suggest infection Eyes PERRL and EOMs intact bilaterally General Eye ED: Negative for scleral icterus Neck supple Resp normal respiratory effort and clear to auscultation bilaterally Cardio regular rate and regular rhythm GI non-tender, non-distended and no masses GI Narrative: Soft nontender nondistended with hyperactive bowel sounds; no voluntary guarding or rigidity or pulsatile mass Auscultation: hyperactive bowel sounds Palpation: soft Back/Spine no CVA tenderness Extremity Extremity Narrative: 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 His abdomen is soft and nonsurgi kierra. He reports his symptoms of diarrhea have been recurrent for quite some time and are also related to food intolerances. Without fevers chills or pain I have low concern for viral stomach infection such as norovirus or rotavirus. He does not have findings of significant dehydration so low concern for acute kidney injury or electrolyte abnormality. He denies blood or discoloration to the diarrhea going against GI bleed. Therefore this time I do not feel the need for imaging or laboratory studies. Patient be put on Lomotil to help reduce his reported occurrence of diarrhea and be referred to GI to discuss further testing and treatment options. However at this time his vitals are stable his abdomen is soft and nonsurgical and he is otherwise safe for discharge History & Record Review Discussion w/independent historian: Patient and Friend Discharge Plan Triage Chief Complaint: Nausea/Vomiting/Diarrhea ED Provider: Johann Lemons Dx/Rx/DC Orders Clinical Impression: Diarrhea, Essential hypertension, HLD (hyperlipidemia), Insulin dependent diabetes mellitus Instructions: Treating Diarrhea, ED Diarrhea, Unknown Cause Prescriptions: New diphenoxylate-atropine [Lomotil] 2.5-0.025 mg tablet 1 tab PO 4X/DAY PRN (Reason: diarrhea) 5 Days Qty: 20 0RF No Action Creon 36,000-114,000- 180,000 unit capsule,delayed release(DR/EC) 1 cap PO TID Rx Instructions: administer with meals and/or snacks metformin 500 MG tablet 500 mg PO BID Patient Comments: diabetes insulin glargine [Lantus Solostar U-100 Insulin] 100 unit/mL (3 mL) Insulin Pen 10 unit SUBCUT BID glipizide 5 mg tablet 5 mg PO BID Rx Instructions: Hold if glucose less than 130 mg/dl ibuprofen 600 mg tablet 600 mg PO Q8H PRN PRN (Reason: pain) Qty: 20 0RF hydrocortisone 1 % cream 1 applic topical TID PRN (Reason: skin irritation) Qty: 28.4 0RF levothyroxine 100 mcg tablet 100 mcg PO DAILY Patient Comments: Take 1 tab by mouth once daily on an empty stomach insulin glargine [Lantus U-100 Insulin] 100 unit/mL solution 1 unit subcut QPM cyclobenzaprine 10 mg tablet 10 mg PO TID PRN (Reason: Muscle Spasm) Qty: 15 0RF hydroxyzine HCl 25 mg tablet 25 mg PO TID PRN (Reason: itching) Qty: 20 0RF nitrofurantoin monohyd/m-cryst [Macrobid] 100 mg capsule 100 mg PO Q12H 5 Days Qty: 10 0RF Rx Instructions: must administer with a meal/food aspirin [Adult Aspirin Regimen] 81 mg tablet,delayed release (DR/EC) 81 mg PO DAILY doxycycline hyclate 100 mg capsule 100 mg PO BID 7 Days Qty: 14 0RF gabapentin 100 mg capsule 100 mg PO TID Qty: 90 0RF sulfamethoxazole-trimethoprim [Bactrim DS] 800-160 mg tablet 1 tab PO BID 7 Days Qty: 14 0RF metformin 500 mg tablet 500 mg PO BID 30 Days Qty: 60 0RF pantoprazole [Protonix] 20 mg tablet,delayed release (DR/EC) 20 mg PO DAILY Qty: 30 0RF Primary Care Provider: Linden Chavez Referrals: Linden Chavez DO [Primary Care Provider] - FriendDonaldo DO [Med Staff - Active Staff] - Activity Restrictions/Additional Instructions: Please take the Lomotil anywhere from 1-4 times a day to help prevent further episodes of diarrhea. Keep yourself well-hydrated. Follow-up with quality control scientist Dr. Obregon to discuss testing for potential food allergens or other causes of your diarrhea. Return to the ER should you have any further concerns Print Language: Monegasque Disposition Disposition: Home, Self Care Discharge Date/Time: 06/03/25 22:40
[2025-06-03] MEDS: Diphenoxylate/Atrop 1 Tablet 2 TABLET PO (22:36)
== END 2025-06-03 22:40 | disposition home or self-care (01) ==
PROVIDERS: Emergency Provider Emergency Medicine; PCP Family Medicine; Visit Provider Emergency Medicine
DX: R19.7 Diarrhea, unspecified (principal); J44.9 Chronic obstructive pulmonary disease, unspecified; E11.9 Type 2 diabetes mellitus without complications; Z79.4 Long term (current) use of insulin; I10 Essential (primary) hypertension; R11.2 Nausea with vomiting, unspecified; E78.5 Hyperlipidemia, unspecified; I25.2 Old myocardial infarction; Z79.84 Long term (current) use of oral hypoglycemic drugs; Z79.82 Long term (current) use of aspirin; K21.9 Gastro-esophageal reflux disease without esophagitis; Z79.899 Other long term (current) drug therapy; Z95.5 Presence of coronary angioplasty implant and graft
CPT/HCPCS: 99282

== ENCOUNTER 2025-06-14 01:29 | Emergency (ER) | payer MEDICARE, OTHER, MEDICAID, SELFPAY ==
[2025-06-14 01:31] VITALS: BP 125/82; PULSE 75; RESP 16; TEMP 36.9; O2SAT 98; BMI 26.3
--- NOTE | 2025-06-14 01:49 | EX.ED.DYSGE1 ---
HPI History of Present Illness Chief Complaint: Diarrhea Informant: patient Narrative Narrative: Patient is a 65-year-old male with past medical history of hypertension hyperlipidemia and COPD. He reports that this evening he ate 8 hot dogs. He states after this he began to have bouts of diarrhea which he describes as a combination of loose and watery stool. He states there is no blood or discoloration to either. He reports that he was using Lomotil to help with diarrhea and taking Creon. However he does not have either of those medications. He states that he is simply tired of having the diarrhea and therefore comes in for evaluation. He states there has been no recent travel outside the country or antibiotic use. 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 Esophageal candidiasis Current use of insulin Back pain due to injury Restless legs Injury of head and neck COPD (chronic obstructive pulmonary disease) High cholesterol History of stress test Depression Chronic pain Non-smoker Sleep apnea Diabetes Hyperlipidemia Hypertension Myocardial infarct Home Medications ?Medication ?Instructions ?Recorded ?Last Taken ?Type metformin 500 mg tablet,extended 500 mg PO BID diabetes 05/02/19 03/18/22 History release 24 hr glipizide 5 mg tablet 5 mg PO BID diabetes 03/19/22 03/18/22 History insulin glargine 100 unit/mL (3 10 unit subcut BID diabetes 03/19/22 03/18/22 History mL) subcutaneous pen (Lantus Solostar U-100 Insulin) hydrocortisone 1 % topical cream 1 applic topical TID PRN skin 08/26/23 Unknown Rx irritation #28.4 grams ibuprofen 600 mg tablet 600 mg PO Q8H PRN PRN pain #20 08/26/23 Unknown Rx TABLETS insulin glargine 100 unit/mL 1 unit subcut QPM 09/29/23 Unknown History subcutaneous solution (Lantus U-100 Insulin) levothyroxine 100 mcg tablet 100 mcg PO DAILY 09/29/23 Unknown History cyclobenzaprine 10 mg tablet 10 mg PO TID PRN Muscle Spasm #15 08/10/24 Unknown Rx TABLETS aspirin 81 mg tablet,delayed 81 mg PO DAILY 02/16/25 Unknown History release (Adult Aspirin Regimen) doxycycline hyclate 100 mg capsule 100 mg PO BID 7 days #14 caps 02/16/25 Unknown Rx gabapentin 100 mg capsule 100 mg PO TID #90 caps 04/21/25 Unknown Rx metformin 500 mg tablet 500 mg PO BID 30 days #60 tabs 05/03/25 Unknown Rx sulfamethoxazole 800 1 tab PO BID 7 days #14 tabs 05/03/25 Unknown Rx mg-trimethoprim 160 mg tablet (Bactrim DS) pantoprazole 20 mg tablet,delayed 20 mg PO DAILY #30 tabs 05/22/25 Unknown Rx release (Protonix) [id number] 1 cap PO TID 05/23/25 Unknown History 36,000-114,000-180,000 unit capsule,delay rel (Creon) hydroxyzine HCl 25 mg tablet 25 mg PO TID PRN itching #20 tabs 05/29/25 Unknown Rx nitrofurantoin 100 mg PO Q12H 5 days #10 caps 05/30/25 Unknown Rx monohydrate/macrocrystals 100 mg capsule (Macrobid) diphenoxylate-atropine 2.5 1 tab PO 4X/DAY PRN diarrhea 5 06/03/25 Unknown Rx mg-0.025 mg tablet (Lomotil) days #20 tabs diphenoxylate-atropine 2.5 1 tab PO 4X/DAY PRN diarrhea 5 06/14/25 Unknown Rx mg-0.025 mg tablet (Lomotil) days #20 tabs Allergy/AdvReac Type Severity Reaction Status Date / Time diphenhydramine HCl (From Allergy Rash Verified 06/14/25 01:33 Benadryl) Penicillins Allergy Rash Verified 06/14/25 01:33 venom-honey bee (bee venom Allergy Swelling Verified 06/14/25 01:33 (honey bee)) Surgical History H/O hernia repair Hx of left knee surgery Hx of inguinal herniorrhaphy History of coronary artery stent placement Social History household members: none Smoking Status: Never smoker substance use type: does not use ROS ROS ED Constitutional Constitutional ED: Denies chills or fever(s) ENT ENT ED: Denies sore throat Cardiovascular Cardiovascular: Denies chest pain Respiratory/Chest Respiratory/Chest: Denies cough or dyspnea Gastrointestinal Gastrointestinal: Reports abdominal pain and diarrhea; Denies nausea or vomiting Genitourinary Genitourinary ED: Denies dysuria Musculoskeletal Musculoskeletal: Denies myalgias Neurologic Neurologic: Denies headache(s) Hematologic/Lymphatic Hematologic/Lymphatic: Denies easy bleeding or easy bruising EXAM Physical Exam Const Vital Signs: 06/14/25 01:31 Temperature 98.5 F Temperature Source Oral Pulse Rate 75 Respiratory Rate 16 Blood Pressure 125/82 H Blood Pressure Mean 96 Pulse Ox 98 Oxygen Delivery Method Room Air Positive well nourished and well developed General Appearance ED: well developed HEENT Reports dry mucous membranes HEENT Narrative: No tongue or lip swelling no oral lesions no airway edema or compromise; no secondary findings in the posterior pharynx to suggest infection Mucous membranes are dry and tacky consistent with mild dehydration Mouth ED: Yes dry mucous membranes Mouth: dry mucous membranes Eyes PERRL and EOMs intact bilaterally General Eye ED: Negative for scleral icterus Neck supple Resp normal respiratory effort and clear to auscultation bilaterally Cardio regular rate and regular rhythm GI non-tender, non-distended and no masses GI Narrative: Abdomen is soft nontender and nondistended with hypoactive bowel sounds No voluntary guarding or rigidity or pulsatile mass Auscultation: hyperactive bowel sounds Palpation: soft Extremity normal to inspection Neuro oriented x3, CN's II-XII intact bilaterally and no sensory deficits noted Sensorium / Orientation: alert Motor Exam: strength 5/5 throughout Psych mental status grossly normal Skin No skin turgor normal Skin Narrative: Skin turgor is increased consistent with dehydration MDM MDM MDM Narrative Medical decision making narrative: Patient arrived to the ER with stable vitals. He reported he did not have bouts of diarrhea until after eating 8 hotdogs this evening. As the symptoms occurred after eating but not throughout the day and he denied any recent travel outside the country or antibiotic use my concern for infectious diarrhea such as C. difficile or Salmonella or E. coli is extremely low. His symptoms are most consistent with functional diarrhea which is exacerbated by the foods he eats. Clinically he has mild dehydration with dry mucous membranes and increased skin turgor. However I have very low concern for acute kidney injury based on his physical exam. Therefore I do not feel the need for IV blood work. I did order a stool series as patient has had visits for diarrhea on June 03 as well as today. However he could not produce a bowel movement which further indicates this is most likely functional diarrhea. After receiving IV hydration the patient reported feeling better and he had no bouts of diarrhea while in the ER. Therefore I do not feel the need for further intervention or workup and he is otherwise safe for discharge. History & Record Review Discussion w/independent historian: Patient Discharge Plan Triage Chief Complaint: Diarrhea ED Provider: Johann Lemons Dx/Rx/DC Orders Clinical Impression: Diarrhea, Dehydration, Essential hypertension, HLD (hyperlipidemia), DM (diabetes mellitus) Instructions: Treating Diarrhea, ED Dehydration (Adult) Prescriptions: New diphenoxylate-atropine [Lomotil] 2.5-0.025 mg tablet 1 tab PO 4X/DAY PRN (Reason: diarrhea) 5 Days Qty: 20 0RF No Action Creon 36,000-114,000- 180,000 unit capsule,delayed release(DR/EC) 1 cap PO TID Rx Instructions: administer with meals and/or snacks metformin 500 MG tablet 500 mg PO BID Patient Comments: diabetes insulin glargine [Lantus Solostar U-100 Insulin] 100 unit/mL (3 mL) Insulin Pen 10 unit SUBCUT BID glipizide 5 mg tablet 5 mg PO BID Rx Instructions: Hold if glucose less than 130 mg/dl ibuprofen 600 mg tablet 600 mg PO Q8H PRN PRN (Reason: pain) Qty: 20 0RF hydrocortisone 1 % cream 1 applic topical TID PRN (Reason: skin irritation) Qty: 28.4 0RF levothyroxine 100 mcg tablet 100 mcg PO DAILY Patient Comments: Take 1 tab by mouth once daily on an empty stomach insulin glargine [Lantus U-100 Insulin] 100 unit/mL solution 1 unit subcut QPM cyclobenzaprine 10 mg tablet 10 mg PO TID PRN (Reason: Muscle Spasm) Qty: 15 0RF hydroxyzine HCl 25 mg tablet 25 mg PO TID PRN (Reason: itching) Qty: 20 0RF nitrofurantoin monohyd/m-cryst [Macrobid] 100 mg capsule 100 mg PO Q12H 5 Days Qty: 10 0RF Rx Instructions: must administer with a meal/food diphenoxylate-atropine [Lomotil] 2.5-0.025 mg tablet 1 tab PO 4X/DAY PRN (Reason: diarrhea) 5 Days Qty: 20 0RF aspirin [Adult Aspirin Regimen] 81 mg tablet,delayed release (DR/EC) 81 mg PO DAILY doxycycline hyclate 100 mg capsule 100 mg PO BID 7 Days Qty: 14 0RF gabapentin 100 mg capsule 100 mg PO TID Qty: 90 0RF sulfamethoxazole-trimethoprim [Bactrim DS] 800-160 mg tablet 1 tab PO BID 7 Days Qty: 14 0RF metformin 500 mg tablet 500 mg PO BID 30 Days Qty: 60 0RF pantoprazole [Protonix] 20 mg tablet,delayed release (DR/EC) 20 mg PO DAILY Qty: 30 0RF Primary Care Provider: Linden Chavez Referrals: Linden Chavez DO [Primary Care Provider] - Activity Restrictions/Additional Instructions: Your history and exam indicate you have functional diarrhea. This is not due to an infection but it is due to gastric irritation from certain foods that you eat. Please try to avoid a large amount of hot dogs in the future as this is what caused symptoms on June 03 as well as today. You can use his Lomotil as directed to help control diarrhea. Please still follow-up with gastroenterology to discuss need for potential colonoscopy to further assess for other causes of your symptoms. Return to the ER should you have any further concerns Print Language: Finnish Disposition Disposition: Home, Self Care
[2025-06-14] MEDS: Diphenoxylate/Atrop 1 Tablet 2 TABLET PO (02:03)
[2025-06-14] MEDS: 0.9% Normal Saline (1000mL) 1,000 ML 999 ML IV (02:03)
[2025-06-14] MEDS: Creon 3,000 unit DR Capsule 1 CAP PO (02:04)
--- OUTSIDE RECORDS SUMMARY | 2025-06-14 02:17 | XMS RPT_ITS | CCD ---
Author Organization [facility] Care Team Providers Care Manager Agency Name Role Phone Unavailable Primary Care Provider [...] Dr. Linden Chavez DO Primary Care Provider [phone] Dr. Live Ashley MD Attending Provider Dr. [...] Provider Dr. Panchito Castillo DO Emergency Provider Dr. Pedro Krishnan DO Attending Provider Ariella SUMMERS, Dr. Vasquez Emergency Provider Care Physician, No Primary Primary Care Provider Unavailable Barry Mathew MD Attending Provider Barry Mathew MD Emergency Provider Dr. Avni Cash MD Attending Provider Dr. Avni Cash MD Emergency Provider Dr. Panchito Castillo DO Attending Provider Dr. Panchito Castillo DO Emergency Provider Dr. Johann Lemons DO Attending [...] Provider Dr. Pedro Krishnan DO [facility] Emergency Provider Dr. Linden Chavez DO Referring Provider [phone] Rosio Aranda Attending Provider Dr. Antonette Dominguez DO Attending Provider Scott, Linden Primary Care Unavailable Antonette Dominguez Attending Unavailable Scott, Linden Primary Care Unavailable Scott, Linden Referring Unavailable Rosio Tesfaye Attending Unavailable Scott, Linden Primary Care Unavailable Antonette Dominguez Attending Unavailable Scott, Linden Attending Unavailable Scott, Linden Primary Care Unavailable Scott, Linden Primary Care Unavailable Scott, Linden Attending Unavailable Scott, Linden Primary Care Unavailable Johann Lemons Attending Unavailable Buster Pereyra Attending Unavailable Care Physician, No Primary Primary Care Unava ilable Ar Calle Attending Unavailable Care Physician, No Primary Primary Care Unava ilable Scott, Linden Primary Care Unavailable Pedro Krishnan Attending Unavailable Scott, Linden Primary Care Unavailable Adam Allen Attending Unavailable Scott, Linden Primary Care Unavailable Live Ashley Attending Unavailable Barry Mathew Attending Unavailable Care Physician, No Primary Primary Care Unava ilable Care Physician, No Primary Primary Care Unava ilable Avni Cash Attending Unavailable Care Physician, No Primary Primary Care Unava ilable Panchito Castillo Attending Unavailable Scott, Linden Primary Care Unavailable Johann Lemons Attending Unavailable Pedro Krishnan Attending Unavailable Care Physician, No Primary Primary Care Unava ilable Care Physician, No Primary Primary Care Unava ilable Johann Lemons Attending Unavailable Allergies Allergy Classification Reported Allergen(s) Allergy Type Date of Onset Reaction(s) Facility (20 sources) bee venom Propensity to adverse reactions to drug 9 Swelling [place], [place] (2 sources) diphenhydrAMINE; Translations: [DIPHENHYDRAMINE] Drug Allergy 1 [place], [place] (8 sources) Penicillins; Translations: [PENICILLINS] Propensity to adverse reactions to drug 1 [place], [place] (20 sources) diphenhydrAMINE; Translations: [diphenhydramine HCl] Drug Allergy 2 [facility] (20 sources) Penicillins Allergy to substance 2 Rash [facility] (3 sources) diphenhydrAMINE Drug Allergy 1 Swelling [facility] Work Phone: (3 sources) Penicillins Drug Allergy 1 Rash [facility] Work Phone: (4 sources) Bee Sting; Translations: [BEE STING] Allergy to substance 1 Swelling [facility] Work Phone: (1 source) Penicillins Drug allergy (disorder) 5 [facility] (1 source) venom-honey bee Drug allergy (disorder) 5 [facility] Medications Current Medications Medication Drug Class(es) Dates Sig (Normalized) Sig (Original) [id number] 200 actuat albuterol 0.09 mg/actuat metered dose [...] structed every 4 hours as needed. amylase [id number] unt / lipase 52797 unt / protease [id number] unt delayed release oral capsule (3 sources) Start: 05-23-2025 take [id number] capsules by mouth three times daily at mealtime Ygaelc-Afleoduz-Jf ylase (Creon) 36,000-114,000- 180,000 unit capsule,delayed release(DR/EC) [...] Start: 06-13-2020 take 1 tablet by tom once daily aspirin, enteric coated (ASPIRIN, ENTERIC [...] once daily for 14 days. For cholesterol atropine sulfate 0.025 mg / diphenoxylate hydrochloride 2.5 mg oral tablet (20 sources) Anticholinergic, Cholinergic Muscarinic Antagonist, Antidiarrheal Start: 06-03-2025 Diphenoxylate-Atropine (Lomotil) 2.5-0.025 mg tablet Active 1 {tbl} PO 4 TIMES DAILY as needed for diarrhea 20 5 0 June 03, 2025 10:25pm Diarrhea Diarrhea, unspecified Start: 10-30-2022 End: 02-16-2025 Diphenoxylate-Atropine (Lomo til) 2.5-0.025 mg tablet Discontinued 1 {tbl} PO 4 TIMES DAILY NEEDED as needed for diarrhea 20 5 0 October 30, 2022 4:58am February 16, 2025 4:05am Diarrhea Diarrhea, unspecified Start: 10-30-2022 End: 02-16-2025 bisacodyl 10 mg rectal suppository (1 source) Stimulant Laxative Start: 10-05-2019 bisacodyl (DULCOLAX) suppository 10 mg cetirizine hydrochloride 10 mg oral tablet (1 source) Histamine-1 Receptor Antagonist Start: 12-14-2024 End: 12-28-2024 take 1 tablet by mouth once daily cetirizine (ZYRTEC) 10 mg tablet Indications: Eustachian tube dysfunction, bilateral Take 1 tablet by mouth once daily for 14 days. 14 tablet 12/14/2024 12/28/2024 Active cyclobenzaprine hydrochloride 10 mg oral tablet (20 sources) Muscle Relaxant Start: 08-26-2023 End: 08-10-2024 take 1 tablet by mouth three times daily as needed for muscle spasms Cyclobenzaprine 10 mg tablet Active 10 mg PO THREE TIMES A DAY as needed for Muscle Spasm 15 0 August 10, 2024 12:00am Start: 10-06-2019 End: [...] Indications: Eustachian tube dysfunction, bilateral Use 1 [place] in each nostril once daily. 9.9 mL 12/14/2024 Active gabapentin 100 mg oral capsule (11 sources) Anti-epileptic Agent Start: 04-21-20 25 take 1 capsule by mouth three times daily Gabapentin 100 mg capsule Active 100 mg PO THREE TIMES A DAY 90 0 April 21, 2025 12:00am Start: 11-12-2019 take 1 capsule by mo [facility] once daily at bedtime gabapentin (NEURONTIN) 300 [...] irritation 28.4 0 August 26, 2023 12:00am hydrOXYzine hydrochloride 25 mg oral tablet (2 sources) Antihistamine Start: 05-29-2025 take 1 tablet by mouth three times daily as needed Hydroxyzine Hcl 25 mg tablet Active 25 mg PO THREE TIMES A DAY as needed for itching 20 0 May 29, 2025 12:00am ibuprofen 600 mg oral tablet (20 sources) Nonsteroidal Anti-inflammatory Drug Start: 05-12-2023 End: 09-29-2023 take 1 tablet by mouth every eight hours as needed for pain Ibuprofen 600 mg tablet Active 600 mg PO EVERY 8 HOURS NEEDED as needed for pain 20 August 26, 2023 12:00am 3 ml insulin [...] Start: 01-30-2021 take 4 tablets by mo [facility] once daily metFORMIN ER (GLUCOPHAGE XR) 500 [...] 12:25pm Diabetes take 4 tablets by mo [facility] once daily at breakfast metFORMIN (GLUCOPHAGE-XR) 500 MG extended release tablet Take 2,000 mg by mouth daily (with breakfast) 0 Active Comment on above: Take 4 tablets by mo [facility] once daily for 14 days. naproxen 500 mg oral tablet (3 sources) Nonsteroidal Anti-inflammatory Drug Start: take 1 tablet by mouth twice daily at mealtime naproxen (NAPROSYN) 500 mg tablet Indications: Trapezius strain, left, initial encounter Take 1 tablet by mouth twice daily with meals. 20 tablet 09/12/2019 Active Comment on above: Take 1 tablet by [facility] twice daily with meals. nitrofurantoin, macrocrystals 25 mg / nitrofurantoin, monohydrate 75 mg oral capsule (2 sources) Nitrofuran Antibacterial Start: 025 take 1 capsule by mouth every twelve hours at mealtime Nitrofurantoin Monohyd/M-Cryst (Macrobid) 100 mg capsule Active 100 mg PO Q12H 10 5 0 May 30, 2025 12:00am must administer with a meal/food omeprazole 20 mg delayed release oral capsule (4 sources) Proton Pump Inhibitor Start: take 1 capsule by mouth once daily [...] Comment on above: Take 1 capsule by [facility] daily before breakfast for 14 days. 1/2 hr before meal. Oral Medication Containers misc (3 sources) Start: 4 Oral Medication Containers misc Indications: Diabetes mellitus, type II, insulin dependent (HCC) , Hypertension , Coronary artery disease , Hypothyroidism Use as directed 1 Each 0 04/26/2014 Active Comment on above: Use as directed pantoprazole 20 mg delayed release oral tablet (4 sources) Proton Pump Inhibitor Start: 5 take 1 tablet by mouth once daily Pantoprazole (Protonix) 20 mg tablet,delayed release (DR/EC) Active 20 mg PO DAILY 30 May 22, 2025 12:00am 3 ml sodium chloride 9 mg/ml injection (5 sources) Start: 9 sodium chloride flush 0.9 % injection 10 mL Start: 10-05-2019 End: 10-06-2019 0.9 % sodium chloride infusi on sulfamethoxazole 800 mg / trimethoprim 160 mg oral tablet (5 sources) Dihydrofolate Reductase Inhibitor Antibacterial, Sulfonamide Antimicrobial [...] / oxyCODONE hydrochloride 5 mg oral tablet (10 sources) Opioid Agonist Start: 08-10-2024 End: 10-19-2024 Oxycodone-Acetaminophen 5-32 5 mg tablet Discontinued 1 {tbl} PO EVERY 6 HOURS NEEDED as needed for Pain 12 3 August 10, 2024 October 19, 2024 5:01am Lumbar radiculopathy Radiculopathy, lumbar region Start: 08-10-2024 End: 10-19-2024 alogliptin 25 mg oral tablet (20 sources) Start: 09-02-2017 End: 05-03-2019 take 1 tablet by mouth once daily Alogliptin 25 MG tablet Discontinued 25 mg PO DAILY May 02, 2019 1:35pm May 03, 2019 8:59am Check with primary doctor canagliflozin 100 mg oral tablet (20 sources) Sodium-Glucose Cotransporter 2 Inhibitor Start: 12-12-2014 End: 05-03-2019 take 1 tablet by mouth once daily Canagliflozin (Invokana) 100 MG tablet Discontinued 100 mg PO DAILY December 12, 2014 1:00am May 03, 2019 8:59am Check with primary doctor cefdinir 300 mg oral capsule (10 sources) Cephalosporin Antibacterial Start: 12-27-2024 End: 02-16-2025 take 1 capsule by mouth every twelve hours Cefdinir 300 mg capsule Discontinued 300 mg PO Q12H 14 December 27, 2024 1:00am February 16, 2025 4:05am ciprofloxacin 500 mg oral tablet (20 sources) Quinolone Antimicrobial Start: 09-29-2023 End: 05-18-2024 [...] 8:34am magnesium citrate 58.2 mg/ml oral solution (18 sources) Start: 12-08-2023 End: 02-16-2025 Magnesium Citrate [...] premix meclizine hydrochloride 25 mg oral tablet (18 sources) Antiemetic Start: 12-08-2023 End: 02-16-2025 take [...] End: 11-11-2013 metroNIDAZOLE 500 mg oral tablet (20 sources) Nitroimidazole Antimicrobial Start: 09-29-2023 End: 05-18-2024 [...] remain phenazopyridine hydrochloride 200 mg oral tablet (10 sources) Start: 12-27-2024 End: 02-16-2025 take 1 tablet by mouth three times daily Phenazopyridine (Pyridium) 200 mg tablet Discontinued 200 mg PO THREE TIMES A DAY 10 0 December 27, 2024 1:00am February 16, 2025 4:06am polyethylene glycol 3350 02547 mg powder for oral solution (20 sources) Osmotic Laxative Start: 03-08-2024 End: 02-16-2025 [...] hernia without obstruction or gangrene] 10-05-2019 Episodic Abdominal pain (20 sources) Generalized abdominal pain; Translations: [Generalized abdominal pain] Onset: Episodic Acute and unspecified renal failure (20 [...] unspecified, without bleeding] 10-06-2019 Episodic Gastrointestinal hemorrhage (20 sources) Black feces; Translations: [Melena] 10-01-2023 Episodic [...] [Diarrhea, unspecified] 01-15-2022 Episodic Other gastrointestinal disorders (12 sources) Diarrhea, unspecified; Translations: [Diarrhea] Onset: Episodic Other gastrointestinal disorders (20 sources) Acute diarrhea; Translations: [Diarrhea, unspecified] 03-28-2022 Episodic Other gastrointestinal disorders (20 sources) Constipation; Translations: [Constipation, unspecified] 03-08-2024 Episodic Other gastrointestinal disorders (4 sources) Occult blood in stools; Translations: [Other fecal abnormalities] 05-22-2025 Episodic Other infections; including parasitic (20 sources) Infestation by Sarcoptes scabiei manjinder hominis; Translations: [Scabies] 06-03-2022 Episodic Other inflammatory condition of skin (2 sources) Pruritic rash; Translations: [Other prurigo] 05-29-2025 Episodic Other injuries and conditions due to external causes (20 sources) Heat cramp; Translations: [Heat cramp, initial encounter] 05-20-2019 Episodic Other injuries and conditions due to external causes (20 sources) Heat exposure; Translations: [Effect of heat and light, unspecified, initial encounter] 05-04-2022 Episodic Other injuries and conditions due to external causes (5 sources) Other specified injuries of thorax, initial encounter; Translations: [Contusion of rib on right side] 05-16-2021 Episodic Other lower respiratory disease (10 sources) History of chronic obstructive airway disease; Translations: [Personal history of other diseases of the respiratory system] 12-28-2024 Episodic Other nutritional; endocrine; and metabolic disorders (4 sources) Hypomagnesemia; Translations: [Hypomagnesemia] 05-22-2025 Chronic Other [...] [Cough, unspecified] Onset: 5 Urinary tract infections (12 sources) Acute urinary tract infection; Translations: [Urinary tract infection, site not specified] 01-04-2025 Episodic Viral infection (20 sources) Viral disease; Translations: [Viral infection, unspecified] 09-15-2020 Episodic Past or Other Problems Problem Classification Problem Date Documented Da te Episodic/Chronic Administrative/social admission (3 sources) Patient encounter status; Translations: [Encounter for disability determination] Onset: 11-30-2012 11-30-2012 Episodic Diseases of mouth; excluding dental (11 sources) Xerostomia; Translations: [Dry mouth, unspecified] Onset: [...] unspecified foot] Onset: 09-17-2011 09-17-2011 Episodic Unclassified (8 sources) Abrasion, left knee, initial encounter 04-21-2025 Results Test Name Value Interpretation Reference Range Facility Emergency Department Summary on 06-03-2025 Emergency Department Summary [facility] Medical Records Department [address] [place] [address] Emergency Department Summary 06/03/25 MR#: [id number] Acct: [id number] Name: JERALD YODER Rep #: [id number] : 1960 65 From: Johann Lemons DO PCP: Dr. Linden Chavez DO Status:DEP ER Location: ED HPI History of Present Illness Chief Complaint: Nausea/Vomiting/Diarrhe a Informant: patient and friend Narrative Narrative: Patient is a 65-year-old male with past medical history of hypertension hyperlipidemia and insulin- dependent diabetes. He states that he has food intolerances and will get diarrhea frequently. He states that this evening he had a hotdog as well as turkey gravy and after eating this he had 2 bouts of diarrhea. He states it was not dark or bloody in nature. He reports he is sick of this happening and is requesting medication to help prevent his symptoms. He denies any known sick contacts fevers chills or abdominal pain. [facility] Medical History Partial traumatic amputation of [...] #30 tabs 05/22/25 Unknown Rx release (Protonix) oomczt-edcbahol-eqmqnag 1 cap PO TID 05/23/25 Unknown Hist ory 36,000-114,000-180,000 unit capsule,delay rel (Creon) hydroxyzine HCl 25 mg tablet 25 mg PO TID PRN itching #20 tabs 05/29/25 Unknown Rx nitrofurantoin 100 mg PO Q12H 5 days #10 caps Unknown Rx monohydrate/macrocrysta ls 100 mg capsule (Macrobid) diphenoxylate-atropine 2.5 1 tab PO 4X/DAY PRN diarrhea 5 02/22 Unknown Rx mg-0.025 mg tablet (Lomotil) days #20 tabs Allergy/AdvReac Type Severity Reaction Status Date / Time diphenhydramine HCl (From Allergy Rash Verified 05/29/25 22:05 Benadryl) Penicillins Allergy Rash Verified 05/29/25 22:05 venom-honey bee (bee venom Allergy Swelling Verified 05/29/25 22:05 (honey bee)) Surgical History H/O hernia repair [...] Denies cough or dyspnea Gastrointestinal Gastrointestinal: Reports diarrhea; Denies abdominal pain, melena, nausea or vomiting Musculoskeletal Musculoskeletal: Denies back pain or myalgias Integumentary Denies rash Neurologic Neurologic: Denies headache(s) Hematologic/Lymphatic Hematologic/Lymphatic: Denies easy bleeding or easy bruising EXAM Physical Exam Const Vital Signs: 06/03/25 21:59 Temperature 96.3 F L Temperature Source Temporal Pulse Rate 80 Respiratory Rate 18 Blood Pressure 102/73 Blood Pressure M (more content not included)... Normal [facility] Urine Cultureon 06-01-2025 [facility] Staphylococcus aureu s [place] Count >100,000 Staphylococcus aureus: REACTION cefOXitin Susc Islt Doxycycline Islt NASRIN <=0.5 S Clindamycin.induced Susc Islt NEG Gentamicin Islt NASRIN <=0.5 S Linezolid Islt NASRIN 2 S Moxifloxacin Islt NASRIN <=0.25 S Nitrofurantoin Islt NASRIN <=16 S Oxacillin Susc Islt 0.5 S Tetracycline Islt NASRIN <=1 S TMP SMX Islt NASRIN <=10 S Vancomycin Islt NASRIN <=0.5 S Normal [facility] Comment on above: Performed By: #### M 100.2200 #### [facility] [address] [facility] [place], [address] Urinalysis, Completeon 05-30 BACTERIA 3+ /hpf Normal None Seen [facility] Comment on above: Order Comment: COLLE CTOR TO SPECIFY Performed By: #### L 400.0001 ####[facility] [address] [place], [address] RBC 0-5 SEEN Normal 0-5 [facility] Comment on above: Order Comment: COLLE CTOR TO SPECIFY Performed By: #### L 400.0001 ####[facility] [address] [place], [address] WBC 25-50 SEEN Normal 0-5 [facility] Comment on above: Order Comment: COLLE CTOR TO SPECIFY Performed By: #### L 400.0001 ####[facility] [address] [place], [address] 12 Lead EKGon 05-29-2025 12 Lead EKG [facility] Cardiovascular Services [address] [place] [address] 12 Lead EKG 05/29/25 2241 MR#: [id number] Acct: [id number] Name: JERALD YODER Rep #: [id number] : 1960 65 From: Cesar Mccoy MD Attending Dr: Status: DEP ER Ordering Dr: Antonette Dominguez DO Date: 05/29/25 Location: ED Sex: M C Admitted: Test Reason : GEN ILL Blood Pressure : */* mmHG Vent. Rate : 77 BPM Atrial Rate : 77 BPM P-R Int : 184 ms QRS Dur : 80 ms QT Int : 388 ms P-R-T Axes : 53 -41 29 degrees QTcB Int : 439 ms Normal sinus rhythm Left axis deviation Abnormal ECG Confirmed by TESSA TRACY, CESAR ([id number]), film and video editor CARLA HERNANDEZ ([id number]) on 05/30/2025 8:40:48 AM Referred By: Confirmed By: CESAR MCCOY MD 05/30/25 0818 Date Cesar Mccoy MD CC: Dr. Antonette Dominguez DO; Dr. Linden Chavez DO Signed Normal [facility] Absolute lymphocyte countOrd ered By: Antonette Dominguez on 05-29-2025 Lymphocytes Auto (Unsp spec) [#/Vol] 1.92 10*3/uL 0.83-4.51 [facility] Absolute neutrophil countOrd ered By: Antonette Dominguez on 05-29-2025 Neutrophils (Bld) [#/Vol] 5.0 10*3/uL 2.0-7.7 [facility] Anion gap in Serum or Plasma Ordered By: Antonette Dominguez on 05-29-2025 Anion gap [Moles/Vol] 11 mmol/L 5-15 [facility] Automated lymphocyte count a s percentage of total leukocytesOrdered By: Antonette Dominguez on 05-29-2025 Lymphocytes/100 WBC Auto (Unsp spec) 23.1 % - [facility] BUN/creatinine ratioOrdered By: Antonette Dominguez on 05-29-2025 Urea nitrogen/Creatinine [Mass ratio] 21.4 mg/mg High 10- [facility] Basophil percentageOrdered B y: Antonette Dominguez on 05-29-2025 Basophils/100 WBC (Bld) 0.8 % 0-1 [facility] Bilirubin Test strip Ql (U)O rdered By: Antonette Dominguez on 05-29-2025 Bilirubin Ql (U) Negative Negative [facility] Bilirubin, totalOrdered By: Antonette Dominguez on 05-29-2025 Bilirubin [Mass/Vol] 0.31 mg/dL 0.00-1.30 [facility] CBC W/Diff, Automatedon 05-02 Absolute Lymph 1.92 X10 3/uL Normal 0.83-4.51 [facility] Comment on above: Performed By: #### L 501.2450, L500.4050, L100.0100 ####[facility] [address] [place], [address] Absolute Neut 5.0 X10 3/uL Normal 2.0-7.7 [facility] Comment on above: Performed By: #### L 501.2450, [id number], L100.0100 ####[facility] [address] [place], [address] Basophils/100 WBC (Bld) 0.8 % Normal 0-1 [facility] Comment on above: Performed By: #### L 501.2450, [id number], L100.0100 ####[facility] [address] [place], [address] Eosinophils/100 WBC (Bld) 5.9 % High 0-5 [facility] Comment on above: Performed By: #### L 501.2450, L500.4050, L100.0100 ####[facility] [address] [place], [address] Erythrocyte distribution width (RBC) [Ratio] 13.7 % Normal 11.6-14.6 [facility] Comment on above: Performed By: #### L 501.2450, L500.4050, L100.0100 ####[facility] [address] [place], [address] Hematocrit (Bld) [Volume fraction] 36.6 % Low 40-54 [facility] Comment on above: Performed By: #### L 501.2450, [id number], L100.0100 ####[facility] [address] [place], [address] Hemoglobin (Bld) [Mass/Vol] 12.5 g/dL Low 13.0-16.5 [facility] Comment on above: Performed By: #### L 501.2450, [id number], L100.0100 ####[facility] [address] [place], [address] IG% 0.400 Normal 0.0-0.9 [facility] Comment on above: Result Comment: IG% - Immature Granulocytes (promyelocytes, myelocytes and metamyelocytes) > 1% indicates that a LEFT SHIFT is Present. Performed By: #### L 501.2450, L500.4050, L100.0100 ####[facility] [address] [place], [address] Lymphocytes/100 WBC (Bld) 23.1 % Normal 19-41 [facility] Comment on above: Performed By: #### L 501.2450, [id number], L100.0100 ####[facility] [address] [place], [address] MCH (RBC) [Entitic mass] 28.7 pg Normal 27.0-32.0 [facility] Comment on above: Performed By: #### L 501.2450, L500.4050, L100.0100 ####[facility] [address] [place], [address] MCHC (RBC) [Mass/Vol] 34.2 g/dL Normal 32-36 [facility] Comment on above: Performed By: #### L 501.2450, L500.4050, L100.0100 ####[facility] [address] [place], [address] MCV (RBC) [Entitic vol] 84.1 fL Normal 80-94 [facility] Comment on above: Performed By: #### L 501.2450, L500.4050, L100.0100 ####[facility] [address] [place], [address] Monocytes/100 WBC (Bld) 9.6 % Normal 0-10 [facility] Comment on above: Performed By: #### L 501.2450, [id number], L100.0100 ####[facility] [address] [place], [address] Neutrophils/100 WBC (Bld) 60.2 % Normal 47-70 [facility] Comment on above: Performed By: #### L 501.2450, [id number], L100.0100 ####[facility] [address] [place], [address] Nucleated RBC (Bld) [#/Vol] 0 10*3/uL Normal 0-5 [facility] Comment on above: Performed By: #### L 501.2450, L500.4050, L100.0100 ####[facility] [address] [place], [address] Platelet mean volume (Bld) [Entitic vol] 9.0 fL Normal 6.2-12.0 [facility] Comment on above: Performed By: #### L 501.2450, [id number], L100.0100 ####[facility] [address] [place], [address] Platelets (Bld) [#/Vol] 204 10*3/uL Normal 150-450 [facility] Comment on above: Performed By: #### L 501.2450, L500.4050, L100.0100 ####[facility] [address] [place], [address] RBC (Bld) [#/Vol] 4.35 10*6/uL Low 4.6-6.2 [facility] Comment on above: Performed By: #### L 501.2450, [id number], L100.0100 ####[facility] [address] [place], [address] RDW SD 42.3 fl Normal 35.1-43.9 [facility] Comment on above: Performed By: #### L 501.2450, [id number], L100.0100 ####[facility] [address] [place], [address] WBC (Bld) [#/Vol] 8.3 10*3/uL Normal 4.4-11.0 [facility] Comment on above: Performed By: #### L 501.2450, [id number], L100.0100 ####[facility] [address] [place], [address] Absolute Neut Normal 2.0-7.7 [facility] [facility] Comment on above: Result Comment: PER ETEAL,RN DUPLICATE ORDERS Performed By: #### L 100.0100, L500.4050 ####[facility] [address] [place], [address] HCT Normal 40-54 [facility] Comment on above: Result Comment: PER ETEAL,RN DUPLICATE ORDERS Performed By: #### L 100.0100, L500.4050 ####[facility] [address] [place], [address] HGB Normal 13.0-16.5 [facility] Comment on above: Result Comment: PER ETRAGHU,RN DUPLICATE ORDERS Performed By: #### L 100.0100, L500.4050 ####[facility] [address] [place], [address] MCH Normal 27.0-32.0 [facility] Comment on above: Result Comment: PER ETEAL,RN DUPLICATE ORDERS Performed By: #### L 100.0100, L500.4050 ####[facility] [address] [place], [address] MCHC Normal 32-36 [facility] Comment on above: Result Comment: PER ETEAL,RN DUPLICATE ORDERS Performed By: #### L 100.0100, L500.4050 ####[facility] [address] [place], [address] MCV Normal 80-94 [facility] Comment on above: Result Comment: PER ETEAL,RN DUPLICATE ORDERS Performed By: #### L 100.0100, L500.4050 ####[facility] [address] [place], [address] NEUT% Normal 47-70 [facility] Comment on above: Result Comment: PER ETEAL,RN DUPLICATE ORDERS Performed By: #### L 100.0100, L500.4050 ####[facility] [address] [place], [address] PLT Normal 150-450 [facility] Comment on above: Result Comment: PER GILSON,RN DUPLICATE ORDERS Performed By: #### L 100.0100, L500.4050 ####[facility] [address] [place], [address] RBC Normal 4.6-6.2 [facility] Comment on above: Result Comment: PER GILSON,RN DUPLICATE ORDERS Performed By: #### L 100.0100, L500.4050 ####[facility] [address] [place], [address] RDW CV Normal 11.6-14.6 [facility] Comment on above: Result Comment: PER GILSON,RN DUPLICATE ORDERS Performed By: #### L 100.0100, L500.4050 ####[facility] [address] [place], [address] RDW SD Normal 35.1-43.9 [facility] Comment on above: Result Comment: PER GILSON,RN DUPLICATE ORDERS Performed By: #### L 100.0100, L500.4050 ####[facility] [address] [place], [address] WBC Normal 4.4-11.0 [facility] Comment on above: Result Comment: PER GILSON,RN DUPLICATE ORDERS Performed By: #### L 100.0100, L500.4050 ####[facility] [address] [place], [address] Carbon dioxide, total [Moles /volume] in Central venous bloodOrdered By: Antonette Dominguez on 05-29-2025 CO2 [Moles/Vol] 23.3 mmol/L 21.0-32.0 [facility] Chloride assayOrdered By: Gibran Dominguez on 05-29-2025 Chloride [Moles/Vol] 107 mmol/L 98-108 [facility] Comprehensive Metabolic Prof ilon 05-29-2025 Albumin [Mass/Vol] 3.8 g/dL Normal 3.4-4.8 [facility] Comment on above: Performed By: #### L 501.2450, L500.4050, L100.0100 ####[facility] [address] [place], [address] Albumin/Globulin [Mass ratio] 1.4 {ratio} Normal 0.9-2.4 [facility] Comment on above: Performed By: #### L 501.2450, L500.4050, L100.0100 ####[facility] [address] [place], [address] ALK PHOS 83 U/L Normal 40-129 [facility] Comment on above: Performed By: #### L 501.2450, L500.4050, L100.0100 ####[facility] [address] [place], [address] ALT [Catalytic activity/Vol] 12 U/L Normal <=46 [facility] Comment on above: Performed By: #### L 501.2450, L500.4050, L100.0100 ####[facility] [address] [place], [address] AST [Catalytic activity/Vol] 16 U/L Normal <=37 [facility] Comment on above: Performed By: #### L 501.2450, L500.4050, L100.0100 ####[facility] [address] [place], [address] Bilirubin [Mass/Vol] 0.31 mg/dL Normal 0.00-1.30 [facility] Comment on above: Performed By: #### L 501.2450, L500.4050, L100.0100 ####[facility] [address] [place], [address] BUN/CRE 21.4 RATIO High 10-20 [facility] Comment on above: Performed By: #### L 501.2450, L500.4050, L100.0100 ####[facility] [address] [place], [address] Calcium [Mass/Vol] 8.9 mg/dL Normal 7.6-11.0 [facility] Comment on above: Performed By: #### L 501.2450, L500.4050, L100.0100 ####[facility] [address] [place], [address] Chloride [Moles/Vol] 107 mmol/L Normal 98-108 [facility] Comment on above: Performed By: #### L 501.2450, L500.4050, L100.0100 ####[facility] [address] [place], [address] CO2 [Moles/Vol] 23.3 mmol/L Normal 21.0-32.0 [facility] Comment on above: Performed By: #### L 501.2450, L500.4050, L100.0100 ####[facility] [address] [place], [address] Creatinine [Mass/Vol] 0.87 mg/dL Normal 0.70-1.20 [facility] Comment on above: Performed By: #### L 501.2450, L500.4050, L100.0100 ####[facility] [address] [place], [address] ECRCL 116.80 ml/min Normal 50-250 [facility] Comment on above: Performed By: #### L 501.2450, L500.4050, L100.0100 ####[facility] [address] [place], [address] GAP 11 Normal 5-15 [facility] Comment on above: Performed By: #### L 501.2450, L500.4050, L100.0100 ####[facility] [address] [place], [address] GFR/1.73 sq M.predicted among non-blacks MDRD (S/P/Bld) [Vol rate/Area] 96 mL/min/{1.73_m2} Normal >60 [facility] Comment on above: Result Comment: mL/m in/1.73m2 CKD-EPI Creatinine Equation (2020) Performed By: #### L 501.2450, L500.4050, L100.0100 ####[facility] [address] [place], [address] Globulin (S) [Mass/Vol] 2.8 g/dL Normal 2.2-4.2 [facility] Comment on above: Performed By: #### L 501.2450, L500.4050, L100.0100 ####[facility] [address] [place], [address] Glucose [Mass/Vol] 117 mg/dL High 70-99 [facility] Comment on above: Performed By: #### L 501.2450, L500.4050, L100.0100 ####[facility] [address] [place], [address] Potassium [Moles/Vol] 4.2 mmol/L Normal 3.3-5.1 [facility] Comment on above: Performed By: #### L 501.2450, L500.4050, L100.0100 ####[facility] [address] [place], [address] Sodium [Moles/Vol] 141 mmol/L Normal 133-145 [facility] Comment on above: Performed By: #### L 501.2450, L500.4050, L100.0100 ####[facility] [address] [place], [address] T PROT 6.6 g/dL Normal 5.9-8.4 [facility] Comment on above: Performed By: #### L 501.2450, L500.4050, L100.0100 ####[facility] [address] [place], [address] Urea nitrogen [Mass/Vol] 19 mg/dL Normal 4-19 [facility] Comment on above: Performed By: #### L 501.2450, L500.4050, L100.0100 ####[facility] [address] [place], [address] ALB Normal 3.4-4.8 [facility] Comment on above: Result Comment: PER ETEAL,RN DUPLICATE ORDERS Performed By: #### L 100.0100, L500.4050 ####[facility] [address] [place], [address] ALK PHOS Normal 40-129 [facility] Comment on above: Result Comment: PER ETEAL,RN DUPLICATE ORDERS Performed By: #### L 100.0100, L500.4050 ####[facility] [address] [place], [address] ALT Normal <=46 [facility] Comment on above: Result Comment: PER ETEAL,RN DUPLICATE ORDERS Performed By: #### L 100.0100, L500.4050 ####[facility] [address] [place], [address] AST Normal <=37 [facility] Comment on above: Result Comment: PER ETEAL,RN DUPLICATE ORDERS Performed By: #### L 100.0100, L500.4050 ####[facility] [address] [place], [address] BUN Normal 4-19 [facility] Comment on above: Result Comment: PER ETEAL,RN DUPLICATE ORDERS Performed By: #### L 100.0100, L500.4050 ####[facility] [address] [place], [address] BUN/CRE Normal 10-20 [facility] Comment on above: Result Comment: PER ETEAL,RN DUPLICATE ORDERS Performed By: #### L 100.0100, L500.4050 ####[facility] [address] [place], [address] Calcium Normal 7.6-11.0 [facility] Comment on above: Result Comment: PER ETEAL,RN DUPLICATE ORDERS Performed By: #### L 100.0100, L500.4050 ####[facility] [address] [place], [address] CL Normal 98-108 [facility] Comment on above: Result Comment: PER ETRAGHU,RN DUPLICATE ORDERS Performed By: #### L 100.0100, L500.4050 ####[facility] [address] [place], [address] CO2 Normal 21.0-32.0 [facility] Comment on above: Result Comment: PER ETRAGHU,RN DUPLICATE ORDERS Performed By: #### L 100.0100, L500.4050 ####[facility] [address] [place], [address] CREAT,SERUM Normal 0.70-1.20 [facility] Comment on above: Result Comment: PER ETEAL,RN DUPLICATE ORDERS Performed By: #### L 100.0100, L500.4050 ####[facility] [address] [place], [address] eGFR Normal >60 [facility] Comment on above: Result Comment: PER ETEAL,RN DUPLICATE ORDERS Performed By: #### L 100.0100, L500.4050 ####[facility] [address] [place], [address] GAP Normal 5-15 [facility] Comment on above: Result Comment: PER ETEAL,RN DUPLICATE ORDERS Performed By: #### L 100.0100, L500.4050 ####[facility] [address] [place], [address] GLU Normal 70-99 [facility] Comment on above: Result Comment: PER GILSON,RN DUPLICATE ORDERS Performed By: #### L 100.0100, L500.4050 ####[facility] [address] [place], [address] Potassium Normal 3.3-5.1 [facility] Comment on above: Result Comment: PER GILSON,RN DUPLICATE ORDERS Performed By: #### L 100.0100, L500.4050 ####[facility] [address] [place], [address] T BILI Normal 0.00-1.30 [facility] Comment on above: Result Comment: PER GILSON,RN DUPLICATE ORDERS Performed By: #### L 100.0100, L500.4050 ####[facility] [address] [place], [address] T PROT Normal 5.9-8.4 [facility] Comment on above: Result Comment: PER GILSON,RN DUPLICATE ORDERS Performed By: #### L 100.0100, L500.4050 ####[facility] [address] [place], [address] Comprehensive Metabolic Profil Normal 133-145 [facility] Comment on above: Result Comment: PER GILSON,RN DUPLICATE ORDERS Performed By: #### L 100.0100, L500.4050 ####[facility] [address] [place], [address] Emergency Department Summary on 05-29-2025 Emergency Department Summary [facility] Medical Records Department [address] [place] [address] Emergency Department Summary 05/29/25 MR#: [id number] Acct: [id number] Name: JERALD YODER Rep #: [id number] : 1960 65 From: Antonette Dominguez DO PCP: Dr. Linden Chavez DO Status:REG ER Location: ED HPI HPI - GI History of Present Illness Chief Complaint: Abd Pain Informant: patient Narrative Narrative: Patient 65-year-old male with history of COPD, insulin-dependent diabetes mellitus, hypertension, hyperlipidemia, pancreatitis and chronic diarrhea presenting with diarrhea. Patient has been having ongoing diarrhea for about a year but it is been worse today. He states he had a relatively large meal including baked beans, Saulsberry steak and hotdogs and after that the diarrhea developed. He denies any associated pain. Denies any nausea or vomiting. Denies any fever or chills. States this feels like his prior episodes of diarrhea. Does tell me that he did resume his insulin and his blood sugars been doing much better (in the 120s now). Taking his insulin twice a day. He also tells me that he has an ongoing itchy rash is wondering he can take for it. Of note patient has been seen for this complaint multiple times in the ER over the past 6 months. [facility] Medical History Partial traumatic amputation of [...] #30 tabs 05/22/25 Unknown Rx release (Protonix) rlxgpj-jztxgvds-lemewdr 1 cap PO TID 05/23/25 Unknown Hist ory 36,000-114,000-180,000 unit capsule,delay rel (Creon) hydroxyzine HCl 25 mg tablet 25 mg PO TID PRN itching #20 tabs 05/29/25 Unknown Rx Allergy/AdvReac Type Severity Reaction Status Date / Time diphenhydramine HCl (From Allergy Rash Verified 05/29/25 22:05 Benadryl) Penicillins Allergy Rash Verified 05/29/25 22:05 venom-honey bee (bee venom Allergy Swelling Verified 05/29/25 22:05 (honey bee)) Surgical History H/O hernia repair Hx of left knee surgery Hx of inguinal herniorrhaphy History of coronary artery stent placement Social History household members: none Smoking Status: Never smoker substance use type: does not use ROS ROS ED Constitutional Constitutional ED: Denies chills or fever(s) Respiratory/Chest Respiratory/Chest: Denies cough Gastrointestinal Gastrointestinal: Reports diarrhea; Denies abdominal pain, nausea or vomiting Genitourinary Genitourinary ED: Denies dysuria Musculoskeletal Musculoskeletal: Denies arthralgias or myalgias Integumentary Reports rash Neurologic Neurologic: Denies weakness EXAM Physical Exam Const Vital Signs: 05/29/25 22:05 Temperature 98.8 F Temperature Source Oral Pulse Rate 75 Respiratory Rate 16 Blood Pressure 125/76 H Blood Pressure Mean 92 Pulse Ox 98 Oxygen Delivery Method Room Air Positive well nourish (more content not included)... Normal [facility] Eosinophil percentageOrdered By: Antonette Dominguez on 05-29-2025 Eosinophils/100 WBC (Bld) 5.9 % High 0-5 [facility] Erythrocyte distribution wid th ratioOrdered By: Antonette Dominguez on 05-29-2025 Erythrocyte distribution width (RBC) [Ratio] 13.7 % 11.6-14.6 [facility] Erythrocyte distribution wid th standard deviationOrdered By: Antonette Dominguez on 05-29-2025 Erythrocyte distribution width (RBC) [Ratio] 42.3 fl 35.1-43.9 [facility] Glomerular filtration rate ( GFR) estimation/1.73 sq m using serum, plasma, or whole bOrdered By: Antonette Dominguez on 05-29-2025 GFR/1.73 sq M.predicted among non-blacks MDRD (S/P/Bld) [Vol rate/Area] 96 mL/min/{1.73_m2} >60 [facility] Comment on above: mL/min/1.73m2 CKD-EP I Creatinine Equation (2020) Hematocrit Auto (Bld) [Volum e fraction]Ordered By: Antonette Dominguez on 05-29-2025 Hematocrit (Bld) [Volume fraction] 36.6 % Low 40-54 [facility] Hemoglobin measurementOrdere d By: Antonette Dominguez on 05-29-2025 Hemoglobin (Bld) [Mass/Vol] 12.5 g/dL Low 13.0-16.5 [facility] Immature granulocytes/100 WB C Auto (Bld)Ordered By: Antonette Dominguez on 05-29-2025 Immature granulocytes/100 WBC (Bld) 0.400 % 0.0-0.9 [facility] Comment on above: IG% - Immature Granu locytes (promyelocytes, myelocytes and metamyelocytes) > 1% indicates that a LEFT SHIFT is Present. Ketones Test strip Ql (U)Ord ered By: Antonette Dominguez on 05-29-2025 Ketones Ql (U) Negative Negative [facility] - Chemistry and C hemistry - challengeOrdered By: Antonette Dominguez on 05-29-2025 AST [Catalytic activity/Vol] 16 U/L <38 [facility] Lipaseon 05-29-2025 Lipase [Catalytic activity/Vol] 24 U/L Normal 13-75 [facility] Comment on above: Result Comment: Oleksandr lopez note: LIPASE revised reference range effective 23. New Lipase methodology. Expected to produce lower values than the previous assay method. NEW Reference Range: 13 - 75 U/L Performed By: #### L 501.2450, L500.4050, L100.0100 ####[facility] [address] [place], [address] Lipase measurementOrdered By : Antonette Dominguez on 05-29-2025 Lipase [Catalytic activity/Vol] 24 U/L 13-75 [facility] Comment on above: Please note:LIPASE r evised reference range effective 23. New Lipase methodology. Expected to produce lower values than the previous assay method. NEW Reference Range: 13 - 75 U/L MCV (mean corpuscular volume ) determinationOrdered By: Antonette Dominguez on 05-29-2025 MCV (RBC) [Entitic vol] 84.1 fL 80-94 [facility] Mean corpuscular hemoglobin (MCH) determinationOrdered By: Antonette Dominguez on 05-29-2025 MCH (RBC) [Entitic mass] 28.7 pg 27.0-32.0 [facility] Mean corpuscular hemoglobin concentration (MCHC) determinationOrdered By: Antonette Dominguez on 05-29-2025 MCHC (RBC) [Mass/Vol] 34.2 g/dL 32-36 [facility] Mean platelet volume determi nationOrdered By: Antonette Dominguez on 05-29-2025 Platelet mean volume (Bld) [Entitic vol] 9.0 fL 6.2-12.0 [facility] Microscopic analysis of urin e for red blood cells (RBC)Ordered By: Antonette Dominguez on 05-29-2025 Microscopic analysis of urine for red blood cells (RBC) 0-5 SEEN /hpf 0-5 [facility] Monocyte percentageOrdered B y: Antonette Dominguez on 05-29-2025 Monocytes/100 WBC (Bld) 9.6 % 0-10 [facility] Mucus LM Ql (Urine sed)Order ed By: Antonette Dominguez on 05-29-2025 Mucus Ql (Urine sed) 0 SEEN /hpf [facility] Neutrophil percentageOrdered By: Antonette Dominguez on 05-29-2025 Neutrophils/100 WBC (Bld) 60.2 % 47-70 [facility] Nitrite Test strip Ql (U)Ord ered By: Antonette Dominguez on 05-29-2025 Nitrite Ql (U) Positive High Negative [facility] Nucleated red blood cell per centageOrdered By: Antonette Dominguez on 05-29-2025 Nucleated RBC/100 WBC (Bld) [Ratio] 0 % 0-5 [facility] Platelet countOrdered By: Gibran Dominguez on 05-29-2025 Platelets (Bld) [#/Vol] 204 10*3/uL 150-450 [facility] Potassium measurement (mass/ volume)Ordered By: Antonette Dominguez on 05-29-2025 Potassium (Unsp spec) [Mass/Vol] 4.2 mmol/L 3.3-5.1 [facility] Protein Test strip Ql (U)Ord ered By: Antonette Dominguez on 05-29-2025 Protein Ql (U) 30 mg/dl High Negative [facility] RBC Auto (Bld) [#/Vol]Ordere d By: Antonette Dominguez on 05-29-2025 RBC (Bld) [#/Vol] 4.35 10*6/uL Low 4.6-6.2 [facility] Serum creatinine measurement (mass/volume)Ordered By: Antonette Dominguez on 05-29-2025 Creatinine [Mass/Vol] 0.87 mg/dL 0.70-1.20 [facility] Serum globulin measurementOr dered By: Antonette Dominguez on 05-29-2025 Globulin (S) [Mass/Vol] 2.8 g/dL 2.2-4.2 [facility] Serum glucose measurement (m ass/volume)Ordered By: Antonette Dominguez on 05-29-2025 Glucose [Mass/Vol] 117 mg/dL High 70-99 [facility] Serum or plasma alanine wagoner otransferase (ALT) measurementOrdered By: Antonette Dominguez on 05-29-2025 ALT [Catalytic activity/Vol] 12 U/L <47 [facility] Serum or plasma albumin yayo urement (mass/volume)Ordered By: Antonette Dominguez on 05-29-2025 Albumin [Mass/Vol] 3.8 g/dL 3.4-4.8 [facility] Serum or plasma albumin/glob ulin mass ratioOrdered By: Antonette Dominguez on 05-29-2025 Albumin/Globulin [Mass ratio] 1.4 {ratio} 0.9-2.4 [facility] Serum or plasma alkaline andrzej sphatase measurementOrdered By: Antonette Dominguez on 05-29-2025 ALP [Catalytic activity/Vol] 83 U/L 40-129 [facility] Serum or plasma calcium yayo urement (mass/volume)Ordered By: Antonette Dominguez on 05-29-2025 Calcium [Mass/Vol] 8.9 mg/dL 7.6-11.0 [facility] Serum or plasma urea nitroge n measurement (mass/volume)Ordered By: Antonette Dominguez on 05-29-2025 Urea nitrogen [Mass/Vol] 19 mg/dL 4-19 [facility] Sodium levelOrdered By: Rubi Dominguez on 05-29-2025 Sodium [Moles/Vol] 141 mmol/L 133-145 [facility] Squamous epithelial cells de tection in urine sediment by light microscopyOrdered By: Antonette Dominguez on 05-29-2025 Epithelial cells.squamous LM Ql (Urine sed) 0 SEEN /hpf 0-5 [facility] Total proteinOrdered By: Manasa Dominguez on 05-29-2025 Protein [Mass/Vol] 6.6 g/dL 5.9-8.4 [facility] Urinalysis, Completeon 05-29 EPI,SQUAMOUS 0 SEEN Normal 0-5 [facility] Comment on above: Order Comment: COLLE CTOR TO SPECIFY Performed By: #### L 400.0001 ####[facility] [address] [place], [address] Mucus Ql (Urine sed) 0 SEEN Normal [facility] Comment on above: Order Comment: COLLE CTOR TO SPECIFY Performed By: #### L 400.0001 ####[facility] [address] [place], [address] BACTERIA Normal None Seen [facility] Comment on above: Order Comment: CLEAN CATCH Result Comment: Canc elled via OM: Duplicate Order Performed By: #### L 100.0100, L501.5200, L500.2500 #### [facility] [address] [place], [address] BILIRUBIN URINE Normal Negative [facility] Comment on above: Order Comment: CLEAN CATCH Result Comment: Canc elled via OM: Duplicate Order Performed By: #### L 100.0100, L501.5200, L500.2500 #### [facility] [address] [place], [address] Clarity (U) Normal Clear [facility] Comment on above: Order Comment: CLEAN CATCH Result Comment: Canc elled via OM: Duplicate Order Performed By: #### L 100.0100, L501.5200, L500.2500 #### [facility] [address] [place], [address] Color (U) Normal Yellow [facility] Comment on above: Order Comment: CLEAN CATCH Result Comment: Canc elled via OM: Duplicate Order Performed By: #### L 100.0100, L501.5200, L500.2500 #### [facility] [address] [place], [address] EPI,SQUAMOUS Normal 0-5 [facility] Comment on above: Order Comment: CLEAN CATCH Result Comment: Canc elled via OM: Duplicate Order Performed By: #### L 100.0100, L501.5200, L500.2500 #### [facility] [address] [place], [address] GLUCOSE, UR Normal Normal [facility] Comment on above: Order Comment: CLEAN CATCH Result Comment: Canc elled via OM: Duplicate Order Performed By: #### L 100.0100, L501.5200, L500.2500 #### [facility] [address] [place], [address] KETONE UR Normal Negative [facility] Comment on above: Order Comment: CLEAN CATCH Result Comment: Canc elled via OM: Duplicate Order Performed By: #### L 100.0100, L501.5200, L500.2500 #### [facility] [address] [place], [address] LEUK ESTERASE Normal Negative [facility] Comment on above: Order Comment: CLEAN CATCH Result Comment: Canc elled via OM: Duplicate Order Performed By: #### L 100.0100, L501.5200, L500.2500 #### [facility] [address] [place], [address] Mucus Ql (Urine sed) Normal [facility] Comment on above: Order Comment: CLEAN CATCH Result Comment: Canc elled via OM: Duplicate Order Performed By: #### L 100.0100, L501.5200, L500.2500 #### [facility] [address] [place], [address] Nitrite Ql (U) Normal Negative [facility] Comment on above: Order Comment: CLEAN CATCH Result Comment: Canc elled via OM: Duplicate Order Performed By: #### L 100.0100, L501.5200, L500.2500 #### [facility] [address] [place], [address] OCCULT BLOOD-UR Normal Negative [facility] Comment on above: Order Comment: CLEAN CATCH Result Comment: Canc elled via OM: Duplicate Order Performed By: #### L 100.0100, L501.5200, L500.2500 #### [facility] [address] [place], [address] pH UR Normal 5.0 - 8.0 [facility] Comment on above: Order Comment: CLEAN CATCH Result Comment: Canc elled via OM: Duplicate Order Performed By: #### L 100.0100, L501.5200, L500.2500 #### [facility] [address] [place], [address] PROT DIPSTX Normal Negative [facility] Comment on above: Order Comment: CLEAN CATCH Result Comment: Canc elled via OM: Duplicate Order Performed By: #### L 100.0100, L501.5200, L500.2500 #### [facility] [address] [place], [address] RBC Normal 0-5 [facility] Comment on above: Order Comment: CLEAN CATCH Result Comment: Canc elled via OM: Duplicate Order Performed By: #### L 100.0100, L501.5200, L500.2500 #### [facility] [address] [place], [address] SP.GR. DIPSTX Normal 1.002-1.030 [facility] Comment on above: Order Comment: CLEAN CATCH Result Comment: Canc elled via OM: Duplicate Order Performed By: #### L 100.0100, L501.5200, L500.2500 #### [facility] [address] [place], [address] UR Preservative Normal [facility] Comment on above: Order Comment: CLEAN CATCH Result Comment: Canc elled via OM: Duplicate Order Performed By: #### L 100.0100, L501.5200, L500.2500 #### [facility] [address] [place], [address] UROBILI Normal Normal [facility] Comment on above: Order Comment: CLEAN CATCH Result Comment: Canc elled via OM: Duplicate Order Performed By: #### L 100.0100, L501.5200, L500.2500 #### [facility] [address] [place], [address] WBC Normal 0-5 [facility] Comment on above: Order Comment: CLEAN CATCH Result Comment: Canc elled via OM: Duplicate Order Performed By: #### L 100.0100, L501.5200, L500.2500 #### [facility] [address] [place], [address] Urine clarityOrdered By: Manasa Dominguez on 05-29-2025 Clarity (U) Cloudy Clear [facility] Urine color determinationOrd ered By: Antonette Dominguez on 05-29-2025 Color (U) Yellow Yellow [facility] Urine cultureOrdered By: Manasa Dominguez on 05-29-2025 Bacteria identified Cx Nom (U) Staphylococcus aureus Abnormal [facility] Urine glucose detectionOrder ed By: Antonette Dominguez on 05-29-2025 Glucose Ql (U) Normal mg/dl Normal [facility] Urine leukocyte esterase det ection by dipstickOrdered By: Antonette Dominguez on 05-29-2025 Leukocyte esterase Test strip Ql (U) 500 /ul High Negative [facility] Urine pHOrdered By: Antonette salomon on 05-29-2025 pH (U) 6.0 [pH] 5.0 - 8.0 [facility] Urine sediment bacteria coun t by microscopy (number/high power field)Ordered By: Antonette Dominguez on 05-29-2025 Bacteria LM.HPF (Urine sed) [#/Area] 3 /[HPF] None Seen [facility] Urine specific gravity measu rementOrdered By: Antonette Dominguez on 05-29-2025 Specific gravity (U) [Rel density] 1.020 1.002-1.030 [facility] Urine urobilinogen measureme ntOrdered By: Antonette Dominguez on 05-29-2025 Urobilinogen Ql (U) Normal mg/dl Normal [facility] White blood cell (WBC) count Ordered By: Antonette Dominguez on 05-29-2025 WBC (Bld) [#/Vol] 8.3 10*3/uL 4.4-11.0 [facility] White blood cell countOrdere d By: Antonette Dominguez on 05-29-2025 White blood cell count 25-50 SEEN /hpf 0-5 [facility] Gastroenterology Visit Repor ton 05-23-2025 Gastroenterology Visit Report [facility] [address] [place] [address] OFFICE VISIT Date of Service: 05/23/25 MR#: [id number] Acct: [id number] Name: JERALD YODER Rep #: [id number] : 1960 Provider: HENNA myers Age/Sex: 65/M Location: [facility] Status: Signed Intake Vital Signs 05/22/25 07:03 [...] mg tablet 5 mg PO BID diabetes 03/19/22/07/25 History insulin glargine 100 unit/mL (3 10 [...] DAILY #30 tabs 05/22/25 Rx release (Protonix) qysiry-ycjepakt-brepssi 1 cap PO TID 05/23/25 05/23/25 His tory 36,000-114,000-180,000 unit capsule,delay rel (Creon) Have you fallen in the past year?: No PENDING SALE TO [facility] Medical History Partial traumatic amputation of [...] to the office today for establishment with [facility] regarding concerns of frequent diarrhea with urgency and incontinence. He had presented to [facility] emergency room on May 22, 2025 with [...] difficulty swal (more content not included)... Normal [facility] 12 Lead EKGon 05-22-2025 12 Lead EKG [facility] Cardiovascular Services [address] [place] [address] 12 Lead EKG 05/22/25 0753 MR#: [id number] Acct: [id number] Name: JERALD YODER Rep #: [id number] : 1960 65 From: Cliff Cook MD [...] ECG Confirmed by MITALI TRACY, TABBY ([id number]), film and video editor ТАТЬЯНА HUIZAR ([id number]) on 05/24/2025 1:13:34 PM Referred By: Confirmed By: TABBY COOK MD 05/24/25 1313 Date Cliff Cook MD CC: Dr. Antonette Dominguez, DO; Dr. Linden Chavez DO Signed Normal [facility] Absolute lymphocyte countOrd ered By: Antonette Dominguez on 05-22-2025 Lymphocytes Auto (Unsp spec) [#/Vol] 1.32 10*3/uL 0.83-4.51 [facility] Absolute neutrophil countOrd ered By: Antonette Dominguez on 05-22-2025 Neutrophils (Bld) [#/Vol] 4.5 10*3/uL 2.0-7.7 [facility] Anion gap in Serum or Plasma Ordered By: Antonette Dominguez on 05-22-2025 Anion gap [Moles/Vol] 10 mmol/L 5-15 [facility] Automated lymphocyte count a s percentage of total leukocytesOrdered By: Antonette Dominguez on 05-22-2025 Lymphocytes/100 WBC Auto (Unsp spec) 19.8 % 19-41 [facility] BUN/creatinine ratioOrdered By: Antonette Dominguez on 05-22-2025 Urea nitrogen/Creatinine [Mass ratio] 17.8 mg/mg 10-20 [facility] Basophil percentageOrdered B y: Antonette Dominguez on 05-22-2025 Basophils/100 WBC (Bld) 0.6 % 0-1 [facility] Bilirubin, totalOrdered By: Antonette Dominguez on 05-22-2025 Bilirubin [Mass/Vol] 0.27 mg/dL 0.00-1.30 [facility] CBC W/Diff, Automatedon 05-01 Absolute Lymph 1.32 X10 3/uL Normal 0.83-4.51 [facility] Comment on above: Performed By: #### M 100.2200 #### [facility] [address] [place], [address] Absolute Neut 4.5 X10 3/uL Normal 2.0-7.7 [facility] Comment on above: Performed By: #### M 100.2200 #### [facility] [address] [place], [address] Basophils/100 WBC (Bld) 0.6 % Normal 0-1 [facility] Comment on above: Performed By: #### M 100.2200 #### [facility] [address] [place], [address] Eosinophils/100 WBC (Bld) 4.5 % Normal 0-5 [facility] Comment on above: Performed By: #### M 100.2200 #### [facility] [address] [place], [address] Erythrocyte distribution width (RBC) [Ratio] 13.8 % Normal 11.6-14.6 [facility] Comment on above: Performed By: #### M 100.2200 #### [facility] [address] [place], [address] Hematocrit (Bld) [Volume fraction] 35.5 % Low 40-54 [facility] Comment on above: Performed By: #### M 100.2200 #### [facility] [address] [place], [address] Hemoglobin (Bld) [Mass/Vol] 12.3 g/dL Low 13.0-16.5 [facility] Comment on above: Performed By: #### M 100.2200 #### [facility] [address] [place], [address] IG% 0.300 Normal 0.0-0.9 [facility] Comment on above: Result Comment: IG% - Immature Granulocytes (promyelocytes, myelocytes and metamyelocytes) > 1% indicates that a LEFT SHIFT is Present. Performed By: #### M 100.2200 #### [facility] [address] [place], [address] Lymphocytes/100 WBC (Bld) 19.8 % Normal 19-41 [facility] Comment on above: Performed By: #### M 100.2200 #### [facility] [address] [place], [address] MCH (RBC) [Entitic mass] 28.4 pg Normal 27.0-32.0 [facility] Comment on above: Performed By: #### M 100.2200 #### [facility] [address] [place], [address] MCHC (RBC) [Mass/Vol] 34.6 g/dL Normal 32-36 [facility] Comment on above: Performed By: #### M 100.2200 #### [facility] [address] [place], [address] MCV (RBC) [Entitic vol] 82.0 fL Normal 80-94 [facility] Comment on above: Performed By: #### M 100.0 #### [facility] [address] [place], [address] Monocytes/100 WBC (Bld) 7.7 % Normal 0-10 [facility] Comment on above: Performed By: #### M 100.2200 #### [facility] [address] [place], [address] Neutrophils/100 WBC (Bld) 67.1 % Normal 47-70 [facility] Comment on above: Performed By: #### M 100.2200 #### [facility] [address] [place], [address] Nucleated RBC (Bld) [#/Vol] 0 10*3/uL Normal 0-5 [facility] Comment on above: Performed By: #### M 100.2200 #### [facility] [address] [place], [address] Platelet mean volume (Bld) [Entitic vol] 8.8 fL Normal 6.2-12.0 [facility] Comment on above: Performed By: #### M 100.2200 #### [facility] [address] [place], [address] Platelets (Bld) [#/Vol] 151 10*3/uL Normal 150-450 [facility] Comment on above: Performed By: #### M 100.2200 #### [facility] [address] [place], [address] RBC (Bld) [#/Vol] 4.33 10*6/uL Low 4.6-6.2 [facility] Comment on above: Performed By: #### M 100.2200 #### [facility] [address] [place], [address] RDW SD 40.8 fl Normal 35.1-43.9 [facility] Comment on above: Performed By: #### M 100.2200 #### [facility] [address] [place], [address] WBC (Bld) [#/Vol] 6.7 10*3/uL Normal 4.4-11.0 [facility] Comment on above: Performed By: #### M 100.2200 #### [facility] [address] [place], [address] Carbon dioxide, total [Moles /volume] in Central venous bloodOrdered By: Antonette Dominguez on 05-22-2025 CO2 [Moles/Vol] 29.9 mmol/L 21.0-32.0 [facility] Chloride assayOrdered By: Gibran Dominguez on 05-22-2025 Chloride [Moles/Vol] 100 mmol/L 98-108 [facility] Comprehensive Metabolic Prof ilon 05-22-2025 Albumin [Mass/Vol] 3.6 g/dL Normal 3.4-4.8 [facility] Comment on above: Performed By: #### L 500.4050, L501.5200 ####[facility] [address] [place], [address] Albumin/Globulin [Mass ratio] 1.4 {ratio} Normal 0.9-2.4 [facility] Comment on above: Performed By: #### L 500.4050, L501.5200 ####[facility] [address] [place], [address] ALK PHOS 79 U/L Normal 40-129 [facility] Comment on above: Performed By: #### L 500.4050, L501.5200 ####[facility] [address] [place], [address] ALT [Catalytic activity/Vol] 10 U/L Normal <=46 [facility] Comment on above: Performed By: #### L 500.4050, L501.5200 ####[facility] [address] [place], [address] AST [Catalytic activity/Vol] 13 U/L Normal <=37 [facility] Comment on above: Performed By: #### L 500.4050, L501.5200 ####[facility] [address] [place], [address] Bilirubin [Mass/Vol] 0.27 mg/dL Normal 0.00-1.30 [facility] Comment on above: Performed By: #### L 500.4050, L501.5200 ####[facility] [address] [place], [address] BUN/CRE 17.8 RATIO Normal 10-20 [facility] Comment on above: Performed By: #### L 500.4050, L501.5200 ####[facility] [address] [place], [address] Calcium [Mass/Vol] 9.3 mg/dL Normal 7.6-11.0 [facility] Comment on above: Performed By: #### L 500.4050, L501.5200 ####[facility] [address] [place], [address] Chloride [Moles/Vol] 100 mmol/L Normal 98-108 [facility] Comment on above: Performed By: #### L 500.4050, L501.5200 ####[facility] [address] [place], [address] CO2 [Moles/Vol] 29.9 mmol/L Normal 21.0-32.0 [facility] Comment on above: Performed By: #### L 500.4050, L501.5200 ####[facility] [address] [place], [address] Creatinine [Mass/Vol] 0.90 mg/dL Normal 0.70-1.20 [facility] Comment on above: Performed By: #### L 500.4050, L501.5200 ####[facility] [address] [place], [address] ECRCL 103.13 ml/min Normal 50-250 [facility] Comment on above: Performed By: #### L 500.4050, L501.5200 ####[facility] [address] [place], [address] GAP 10 Normal 5-15 [facility] Comment on above: Performed By: #### L 500.4050, L501.5200 ####[facility] [address] [place], [address] GFR/1.73 sq M.predicted among non-blacks MDRD (S/P/Bld) [Vol rate/Area] 95 mL/min/{1.73_m2} Normal >60 [facility] Comment on above: Result Comment: mL/m in/1.73m2 CKD-EPI Creatinine Equation (2020) Performed By: #### L 500.4050, L501.5200 ####[facility] [address] [place], [address] Globulin (S) [Mass/Vol] 2.5 g/dL Normal 2.2-4.2 [facility] Comment on above: Performed By: #### L 500.4050, L501.5200 ####[facility] [address] [place], [address] Glucose [Mass/Vol] 183 mg/dL High 70-99 [facility] Comment on above: Performed By: #### L 500.4050, L501.5200 ####[facility] [address] [place], [address] Potassium [Moles/Vol] 4.0 mmol/L Normal 3.3-5.1 [facility] Comment on above: Performed By: #### L 500.4050, L501.5200 ####[facility] [address] [place], [address] Sodium [Moles/Vol] 139 mmol/L Normal 133-145 [facility] Comment on above: Performed By: #### L 500.4050, L501.5200 ####[facility] [address] [place], [address] T PROT 6.2 g/dL Normal 5.9-8.4 [facility] Comment on above: Performed By: #### L 500.4050, L501.5200 ####[facility] [address] [place], [address] Urea nitrogen [Mass/Vol] 16 mg/dL Normal 4-19 [facility] Comment on above: Performed By: #### L 500.4050, L501.5200 ####[facility] [address] [place], [address] Emergency Department Summary on 05-22-2025 Emergency Department Summary [facility] Medical Records Department [address] [place] [address] Emergency Department Summary 05/22/25 MR#: [id number] Acct: [id number] Name: JERALD YODER Rep #: [id number] : 1960 65 From: Antonette Dominguez DO PCP: Dr. Linden Chavez DO Status:DEP [...] complaints or concerns reported at this time. [facility] Medical History Partial traumatic amputation of [...] Const Suly (more content not included)... Normal [facility] Eosinophil percentageOrdered By: Antonette Dominguez on 05-22-2025 Eosinophils/100 WBC (Bld) 4.5 % 0-5 [facility] Erythrocyte distribution wid th ratioOrdered By: Antonette Dominguez on 05-22-2025 Erythrocyte distribution width (RBC) [Ratio] 13.8 % 11.6-14.6 [facility] Erythrocyte distribution wid th standard deviationOrdered By: Antonette Dominguez on 05-22-2025 Erythrocyte distribution width (RBC) [Ratio] 40.8 fl 35.1-43.9 [facility] Glomerular filtration rate ( GFR) estimation/1.73 sq m using serum, plasma, or whole bOrdered By: Antonette Dominguez on 05-22-2025 GFR/1.73 sq M.predicted among non-blacks MDRD (S/P/Bld) [Vol rate/Area] 95 mL/min/{1.73_m2} >60 [facility] Comment on above: mL/min/1.73m2 CKD-EP I Creatinine Equation (2020) Hematocrit Auto (Bld) [Volum e fraction]Ordered By: Antonette Dominguez on 05-22-2025 Hematocrit (Bld) [Volume fraction] 35.5 % Low 40-54 [facility] Hemoglobin measurementOrdere d By: Antonette Dominguez on 05-22-2025 Hemoglobin (Bld) [Mass/Vol] 12.3 g/dL Low 13.0-16.5 [facility] Immature granulocytes/100 WB C Auto (Bld)Ordered By: Antonette Dominguez on 05-22-2025 Immature granulocytes/100 WBC (Bld) 0.300 % 0.0-0.9 [facility] Comment on above: IG% - Immature Granu locytes (promyelocytes, myelocytes and metamyelocytes) > 1% indicates that a LEFT SHIFT is Present. Laboratory - Chemistry and C hemistry - challengeOrdered By: Antonette Dominguez on 05-22-2025 AST [Catalytic activity/Vol] 13 U/L <38 [facility] MCV (mean corpuscular volume ) determinationOrdered By: Antonette Dominguez on 05-22-2025 MCV (RBC) [Entitic vol] 82.0 fL 80-94 [facility] Magnesiumon 05-22-2025 Magnesium [Mass/Vol] 1.3 mg/dL Low 1.5-2.2 [facility] Comment on above: Performed By: #### L 500.4050, L501.5200 ####[facility] [address] [place], [address] Magnesium measurement (mass/ volume)Ordered By: Antonette Dominguez on 05-22-2025 Magnesium (Unsp spec) [Mass/Vol] 1.3 mg/dL Low 1.5-2.2 [facility] Mean corpuscular hemoglobin (MCH) determinationOrdered By: Antonette Dominguez on 05-22-2025 MCH (RBC) [Entitic mass] 28.4 pg 27.0-32.0 [facility] Mean corpuscular hemoglobin concentration (MCHC) determinationOrdered By: Antonette Dominguez on 05-22-2025 MCHC (RBC) [Mass/Vol] 34.6 g/dL 32-36 [facility] Mean platelet volume determi nationOrdered By: Antonette Dominguez on 05-22-2025 Platelet mean volume (Bld) [Entitic vol] 8.8 fL 6.2-12.0 [facility] Monocyte percentageOrdered B y: Antonette Dominguez on 05-22-2025 Monocytes/100 WBC (Bld) 7.7 % 0-10 [facility] Neutrophil percentageOrdered By: Antonette Dominguez on 05-22-2025 Neutrophils/100 WBC (Bld) 67.1 % 47-70 [facility] Nucleated red blood cell per centageOrdered By: Antonette Dominguez on 05-22-2025 Nucleated RBC/100 WBC (Bld) [Ratio] 0 % 0-5 [facility] Platelet countOrdered By: Gibran Dominguez on 05-22-2025 Platelets (Bld) [#/Vol] 151 10*3/uL 150-450 [facility] Potassium measurement (mass/ volume)Ordered By: Antonette Dominguze on 05-22-2025 Potassium (Unsp spec) [Mass/Vol] 4.0 mmol/L 3.3-5.1 [facility] RBC Auto (Bld) [#/Vol]Ordere d By: Antonette Dominguez on 05-22-2025 RBC (Bld) [#/Vol] 4.33 10*6/uL Low 4.6-6.2 [facility] Serum creatinine measurement (mass/volume)Ordered By: Antonette Dominguez on 05-22-2025 Creatinine [Mass/Vol] 0.90 mg/dL 0.70-1.20 [facility] Serum globulin measurementOr dered By: Antonette Dominguez on 05-22-2025 Globulin (S) [Mass/Vol] 2.5 g/dL 2.2-4.2 [facility] Serum glucose measurement (m ass/volume)Ordered By: Antonette Dominguez on 05-22-2025 Glucose [Mass/Vol] 183 mg/dL High 70-99 [facility] Serum or plasma alanine wagoner otransferase (ALT) measurementOrdered By: Antonette Dominguez on 05-22-2025 ALT [Catalytic activity/Vol] 10 U/L <47 [facility] Serum or plasma albumin yayo urement (mass/volume)Ordered By: Antonette Dominguez on 05-22-2025 Albumin [Mass/Vol] 3.6 g/dL 3.4-4.8 [facility] Serum or plasma albumin/glob ulin mass ratioOrdered By: Antonette Dominguez on 05-22-2025 Albumin/Globulin [Mass ratio] 1.4 {ratio} 0.9-2.4 [facility] Serum or plasma alkaline andrzej sphatase measurementOrdered By: Antonette Dominguez on 05-22-2025 ALP [Catalytic activity/Vol] 79 U/L 40-129 [facility] Serum or plasma calcium yayo urement (mass/volume)Ordered By: Antonette Dominguez on 05-22-2025 Calcium [Mass/Vol] 9.3 mg/dL 7.6-11.0 [facility] Serum or plasma urea nitroge n measurement (mass/volume)Ordered By: Antonette Dominguez on 05-22-2025 Urea nitrogen [Mass/Vol] 16 mg/dL 4-19 [facility] Sodium levelOrdered By: Rubi Dominguez on 05-22-2025 Sodium [Moles/Vol] 139 mmol/L 133-145 [facility] Stool Occult Blood iFOBon STOB Positive Normal [facility] Comment on above: Performed By: #### M 100.2200 #### [facility] [address] [place], [address] Stool gastrointestinal hemog lobin detection by immunologic methodOrdered By: Antonette Dominguez on 05-22-2025 Lower GI hemoglobin IA Ql (Stl) Positive Abnormal [facility] Total proteinOrdered By: Manasa Dominguez on 05-22-2025 Protein [Mass/Vol] 6.2 g/dL 5.9-8.4 [facility] White blood cell (WBC) count Ordered By: Antonette Dominguez on 05-22-2025 WBC (Bld) [#/Vol] 6.7 10*3/uL 4.4-11.0 [facility] Urine Cultureon 05-05-2025 [facility] Staphylococcus aureu s [place] Count 80,000-100,000 Staphylococcus aureus: REACTION cefOXitin Susc Islt Doxycycline Islt NASRIN <=0.5 S Clindamycin.induced Susc Islt NEG Gentamicin Islt NASRIN <=0.5 S Linezolid Islt NASRIN 2 S Moxifloxacin Islt NASRIN <=0.25 S Nitrofurantoin Islt NASRIN <=16 S Oxacillin Susc Islt 0.5 S Tetracycline Islt NASRIN <=1 S TMP SMX Islt NASRIN <=10 S Vancomycin Islt NASRIN <=0.5 S Normal [facility] Comment on above: Performed By: #### M 100.9919 #### [facility] [address] [place], [address] 12 Lead EKGon 05-03-2025 12 Lead EKG [facility] Cardiovascular Services [address] [place] [address] 12 Lead EKG 05/03/25 1255 MR#: [id number] Acct: [id number] Name: JERALD YODER Rep #: [id number] : 1960 65 From: Cesar Mccoy MD [...] Abnormal ECG Confirmed by TESSA TRACY, CESAR ([id number]), film and video editor CARLA HERNANDEZ ([id number]) on 05/06/2025 10:30:28 AM Referred By: Confirmed By: CESAR MCCOY MD 05/06/25 1030 Date Cesar Mccoy MD CC: Dr. Linden Chavez, DO; Dr. Pedro Krishnan, ; ARCHIE Hopkins Signed Normal [facility] Absolute lymphocyte countOrd ered By: Cinthia Wilson on 05-03-2025 Lymphocytes Auto (Unsp spec) [#/Vol] 1.45 10*3/uL 0.83-4.51 [facility] Absolute neutrophil countOrd ered By: Cinthia Wilson on 05-03-2025 Neutrophils (Bld) [#/Vol] 7.2 10*3/uL 2.0-7.7 [facility] Anion gap in Serum or Plasma Ordered By: Cinthia Hemphillier on 05-03-2025 Anion gap [Moles/Vol] 12 mmol/L 5-15 [facility] Automated lymphocyte count a s percentage of total leukocytesOrdered By: Cinthia Hemphillken on 05-03-2025 Lymphocytes/100 WBC Auto (Unsp spec) 15.1 % Low 19-41 [facility] BUN/creatinine ratioOrdered By: Cinthia Lópezbryson on 05-03-2025 Urea nitrogen/Creatinine [Mass ratio] 25.5 mg/mg High 10-20 [facility] Basophil percentageOrdered B y: Cinthia Lópezbryson on 05-03-2025 Basophils/100 WBC (Bld) 0.6 % 0-1 [facility] Bedside Glucoseon 05-03-2025 FINGERSTICK GLU 226 mg/dL High 74-106 [facility] Comment on above: Result Comment: TAYLOR SEALS OF PATIENT CARE PER NURSING PROTOCOL Performed By: #### L 100.0100, L501.5200, L500.2500 #### [facility] [address] [place], [address] Bilirubin Test strip Ql (U)O rdered By: Cinthia Lópezbryson on 05-03-2025 Bilirubin Ql (U) Negative Negative [facility] Bilirubin, totalOrdered By: Cinthia Lópezbryson on 05-03-2025 Bilirubin [Mass/Vol] 0.34 mg/dL 0.00-1.30 [facility] CBC W/Diff, Automatedon Absolute Lymph 1.45 X10 3/uL Normal 0.83-4.51 [facility] Comment on above: Performed By: #### L 501.080 #### [facility] [address] [place], [address] Absolute Neut 7.2 X10 3/uL Normal 2.0-7.7 [facility] Comment on above: Performed By: #### L 501.080 #### [facility] [address] [place], [address] Basophils/100 WBC (Bld) 0.6 % Normal 0-1 [facility] Comment on above: Performed By: #### L 501.080 #### [facility] [address] [place], [address] Eosinophils/100 WBC (Bld) 2.1 % Normal 0-5 [facility] Comment on above: Performed By: #### L 501.080 #### [facility] [address] [place], [address] Erythrocyte distribution width (RBC) [Ratio] 13.6 % Normal 11.6-14.6 [facility] Comment on above: Performed By: #### L 501.080 #### [facility] [address] [place], [address] Hematocrit (Bld) [Volume fraction] 39.5 % Low 40-54 [facility] Comment on above: Performed By: #### L 501.080 #### [facility] [address] [place], [address] Hemoglobin (Bld) [Mass/Vol] 14.0 g/dL Normal 13.0-16.5 [facility] Comment on above: Performed By: #### L 501.080 #### [facility] [address] [place], [address] IG% 0.300 Normal 0.0-0.9 [facility] Comment on above: Result Comment: IG% - Immature Granulocytes (promyelocytes, myelocytes and metamyelocytes) > 1% indicates that a LEFT SHIFT is Present. Performed By: #### L 501.080 #### [facility] [address] [place], [address] Lymphocytes/100 WBC (Bld) 15.1 % Low 19-41 [facility] Comment on above: Performed By: #### L 501.080 #### [facility] [address] [place], [address] MCH (RBC) [Entitic mass] 28.6 pg Normal 27.0-32.0 [facility] Comment on above: Performed By: #### L 501.080 #### [facility] [address] [place], [address] MCHC (RBC) [Mass/Vol] 35.4 g/dL Normal 32-36 [facility] Comment on above: Performed By: #### L 501.080 #### [facility] [address] [place], [address] MCV (RBC) [Entitic vol] 80.8 fL Normal 80-94 [facility] Comment on above: Performed By: #### L 501.080 #### [facility] [address] [place], [address] Monocytes/100 WBC (Bld) 6.8 % Normal 0-10 [facility] Comment on above: Performed By: #### L 501.080 #### [facility] [address] [place], [address] Neutrophils/100 WBC (Bld) 75.1 % High 47-70 [facility] Comment on above: Performed By: #### L 501.080 #### [facility] [address] [place], [address] Nucleated RBC (Bld) [#/Vol] 0 10*3/uL Normal 0-5 [facility] Comment on above: Performed By: #### L 501.080 #### [facility] [address] [place], [address] Platelet mean volume (Bld) [Entitic vol] 8.9 fL Normal 6.2-12.0 [facility] Comment on above: Performed By: #### L 501.080 #### [facility] [address] [place], [address] Platelets (Bld) [#/Vol] 251 10*3/uL Normal 150-450 [facility] Comment on above: Performed By: #### L 501.080 #### [facility] [address] [place], [address] RBC (Bld) [#/Vol] 4.89 10*6/uL Normal 4.6-6.2 [facility] Comment on above: Performed By: #### L 501.080 #### [facility] [address] [place], [address] RDW SD 39.5 fl Normal 35.1-43.9 [facility] Comment on above: Performed By: #### L 501.080 #### [facility] [address] [place], [address] WBC (Bld) [#/Vol] 9.6 10*3/uL Normal 4.4-11.0 [facility] Comment on above: Performed By: #### L 501.080 #### [facility] [address] [place], [address] Carbon dioxide, total [Moles /volume] in Central venous bloodOrdered By: Cinthia Wilson on 05-03-2025 CO2 [Moles/Vol] 23.1 mmol/L 21.0-32.0 [facility] Chloride assayOrdered By: Crissy Wilson on 05-03-2025 Chloride [Moles/Vol] 101 mmol/L 98-108 [facility] Comprehensive Metabolic Prof ilon 05-03-2025 Albumin [Mass/Vol] 4.2 g/dL Normal 3.4-4.8 [facility] Comment on above: Performed By: #### L 501.080 #### [facility] [address] [place], [address] Albumin/Globulin [Mass ratio] 1.3 {ratio} Normal 0.9-2.4 [facility] Comment on above: Performed By: #### L 501.080 #### [facility] [address] [place], [address] ALK PHOS 112 U/L Normal 40-129 [facility] Comment on above: Performed By: #### L 501.080 #### [facility] [address] [place], [address] ALT [Catalytic activity/Vol] 8 U/L Normal <=46 [facility] Comment on above: Performed By: #### L 501.080 #### [facility] [address] [place], [address] AST [Catalytic activity/Vol] 14 U/L Normal <=37 [facility] Comment on above: Performed By: #### L 501.080 #### [facility] [address] [place], [address] Bilirubin [Mass/Vol] 0.34 mg/dL Normal 0.00-1.30 [facility] Comment on above: Performed By: #### L 501.080 #### [facility] [address] [place], [address] BUN/CRE 25.5 RATIO High 10-20 [facility] Comment on above: Performed By: #### L 501.080 #### [facility] [address] [place], [address] Calcium [Mass/Vol] 9.5 mg/dL Normal 7.6-11.0 [facility] Comment on above: Performed By: #### L 501.080 #### [facility] [address] [place], [address] Chloride [Moles/Vol] 101 mmol/L Normal 98-108 [facility] Comment on above: Performed By: #### L 501.080 #### [facility] [address] [place], [address] CO2 [Moles/Vol] 23.1 mmol/L Normal 21.0-32.0 [facility] Comment on above: Performed By: #### L 501.080 #### [facility] [address] [place], [address] Creatinine [Mass/Vol] 0.89 mg/dL Normal 0.70-1.20 [facility] Comment on above: Performed By: #### L 501.080 #### [facility] [address] [place], [address] ECRCL 104.28 ml/min Normal 50-250 [facility] Comment on above: Performed By: #### L 501.080 #### [facility] [address] [place], [address] GAP 12 Normal 5-15 [facility] Comment on above: Performed By: #### L 501.080 #### [facility] [address] [place], [address] GFR/1.73 sq M.predicted among non-blacks MDRD (S/P/Bld) [Vol rate/Area] 95 mL/min/{1.73_m2} Normal >60 [facility] Comment on above: Result Comment: mL/m in/1.73m2 CKD-EPI Creatinine Equation (2020) Performed By: #### L 501.080 #### [facility] [address] [place], [address] Globulin (S) [Mass/Vol] 3.1 g/dL Normal 2.2-4.2 [facility] Comment on above: Performed By: #### L 501.080 #### [facility] [address] [place], [address] Glucose [Mass/Vol] 215 mg/dL High 70-99 [facility] Comment on above: Performed By: #### L 501.080 #### [facility] [address] [place], [address] Potassium [Moles/Vol] 4.4 mmol/L Normal 3.3-5.1 [facility] Comment on above: Performed By: #### L 501.080 #### [facility] [address] [place], [address] Sodium [Moles/Vol] 136 mmol/L Normal 133-145 [facility] Comment on above: Performed By: #### L 501.080 #### [facility] [address] [place], [address] T PROT 7.3 g/dL Normal 5.9-8.4 [facility] Comment on above: Performed By: #### L 501.080 #### [facility] [address] [place], [address] Urea nitrogen [Mass/Vol] 23 mg/dL High 4-19 [facility] Comment on above: Performed By: #### L 501.080 #### [facility] [address] [place], [address] Emergency Department Summary on 05-03-2025 Emergency Department Summary [facility] Medical Records Department [address] [place] [address] Emergency Department Summary 05/03/25 MR#: [id number] Acct: [id number] Name: JERALD YODER Rep #: [id number] : 1960 65 From: Cinthia ALMANZA PCP: Dr. Linden Chavez, DO Status:DEP ER Location: ED Patient was seen and examined with physician physiotherapy assistant Cinthia All components of the history [...] has another appointment with him on 05/24. [facility] Medical History Partial traumatic amputation of [...] Insulin) levo (more content not included)... Normal [facility] Eosinophil percentageOrdered By: Cinthia Wilson on 05-03-2025 Eosinophils/100 WBC (Bld) 2.1 % 0-5 [facility] Erythrocyte distribution wid th ratioOrdered By: Cinthia Wilson on 05-03-2025 Erythrocyte distribution width (RBC) [Ratio] 13.6 % 11.6-14.6 [facility] Erythrocyte distribution wid th standard deviationOrdered By: Cinthia Wilson on 05-03-2025 Erythrocyte distribution width (RBC) [Ratio] 39.5 fl 35.1-43.9 [facility] Glomerular filtration rate ( GFR) estimation/1.73 sq m using serum, plasma, or whole bOrdered By: Cinthia Wilson on 05-03-2025 GFR/1.73 sq M.predicted among non-blacks MDRD (S/P/Bld) [Vol rate/Area] 95 mL/min/{1.73_m2} >60 [facility] Comment on above: mL/min/1.73m2 CKD-EP I Creatinine Equation (2020) [facility] deOrdered By: Pedro Krishnan on 05-03-2025 Glucose [Mass/Vol] 226 mg/dL High 74-106 [facility] Comment on above: MANAGEMENT OF PATIEN T CARE PER NURSING PROTOCOL Hematocrit Auto (Bld) [Volum e fraction]Ordered By: Cinthia Wilson on 05-03-2025 Hematocrit (Bld) [Volume fraction] 39.5 % Low 40-54 [facility] Hemoglobin measurementOrdere d By: Cinthia Wilson on 05-03-2025 Hemoglobin (Bld) [Mass/Vol] 14.0 g/dL 13.0-16.5 [facility] Immature granulocytes/100 WB C Auto (Bld)Ordered By: Cinthia Wilson on 05-03-2025 Immature granulocytes/100 WBC (Bld) 0.300 % 0.0-0.9 [facility] Comment on above: IG% - Immature Granu locytes (promyelocytes, myelocytes and metamyelocytes) > 1% indicates that a LEFT SHIFT is Present. Ketones Test strip Ql (U)Ord ered By: Cinthia Wilson on 05-03-2025 Ketones Ql (U) Negative Negative [facility] - Chemistry and C hemistry - challengeOrdered By: Cinthia Wilson on 05-03-2025 AST [Catalytic activity/Vol] 14 U/L <38 [facility] MCV (mean corpuscular volume ) determinationOrdered By: Cinthia Wilson on 05-03-2025 MCV (RBC) [Entitic vol] 80.8 fL 80-94 [facility] Mean corpuscular hemoglobin (MCH) determinationOrdered By: Cinthia Wilson on 05-03-2025 MCH (RBC) [Entitic mass] 28.6 pg 27.0-32.0 [facility] Mean corpuscular hemoglobin concentration (MCHC) determinationOrdered By: Cinthia Wilson on 05-03-2025 MCHC (RBC) [Mass/Vol] 35.4 g/dL 32-36 [facility] Mean platelet volume determi nationOrdered By: Cinthia Wilson on 05-03-2025 Platelet mean volume (Bld) [Entitic vol] 8.9 fL 6.2-12.0 [facility] Microscopic analysis of urin e for red blood cells (RBC)Ordered By: Cinthia Wilson on 05-03-2025 Microscopic analysis of urine for red blood cells (RBC) 0 SEEN /hpf 0-5 [facility] Monocyte percentageOrdered B y: Cinthia Wilson on 05-03-2025 Monocytes/100 WBC (Bld) 6.8 % 0-10 [facility] Mucus LM Ql (Urine sed)Order ed By: Cinthia Wilson on 05-03-2025 Mucus Ql (Urine sed) 0 SEEN /hpf [facility] Neutrophil percentageOrdered By: Cinthia Wilson on 05-03-2025 Neutrophils/100 WBC (Bld) 75.1 % High 47-70 [facility] Nitrite Test strip Ql (U)Ord ered By: Cinthia Wilson on 05-03-2025 Nitrite Ql (U) Negative Negative [facility] Nucleated red blood cell per centageOrdered By: Cinthia Wilson on 05-03-2025 Nucleated RBC/100 WBC (Bld) [Ratio] 0 % 0-5 [facility] Platelet countOrdered By: Crissy Wilson on 05-03-2025 Platelets (Bld) [#/Vol] 251 10*3/uL 150-450 [facility] Potassium measurement (mass/ volume)Ordered By: Cinthia Wilson on 05-03-2025 Potassium (Unsp spec) [Mass/Vol] 4.4 mmol/L 3.3-5.1 [facility] Protein Test strip Ql (U)Ord ered By: Cinthia Wilson on 05-03-2025 Protein Ql (U) 30 mg/dl High Negative [facility] RBC Auto (Bld) [#/Vol]Ordere d By: Cinthia Wilson on 05-03-2025 RBC (Bld) [#/Vol] 4.89 10*6/uL 4.6-6.2 [facility] Serum creatinine measurement (mass/volume)Ordered By: Cinthia Wilson on 05-03-2025 Creatinine [Mass/Vol] 0.89 mg/dL 0.70-1.20 [facility] Serum globulin measurementOr dered By: Cinthia Wilson on 05-03-2025 Globulin (S) [Mass/Vol] 3.1 g/dL 2.2-4.2 [facility] Serum glucose measurement (m ass/volume)Ordered By: Cinthia Wilson on 05-03-2025 Glucose [Mass/Vol] 215 mg/dL High 70-99 [facility] Serum or plasma alanine wagoner otransferase (ALT) measurementOrdered By: Cinthia Wilson on 05-03-2025 ALT [Catalytic activity/Vol] 8 U/L <47 [facility] Serum or plasma albumin yayo urement (mass/volume)Ordered By: Cinthia Wilson on 05-03-2025 Albumin [Mass/Vol] 4.2 g/dL 3.4-4.8 [facility] Serum or plasma albumin/glob ulin mass ratioOrdered By: Cinthia Wilson on 05-03-2025 Albumin/Globulin [Mass ratio] 1.3 {ratio} 0.9-2.4 [facility] Serum or plasma alkaline andrzej sphatase measurementOrdered By: Cinthia iWlson on 05-03-2025 ALP [Catalytic activity/Vol] 112 U/L 40-129 [facility] Serum or plasma calcium yayo urement (mass/volume)Ordered By: Cinthia Wilson on 05-03-2025 Calcium [Mass/Vol] 9.5 mg/dL 7.6-11.0 [facility] Serum or plasma urea nitroge n measurement (mass/volume)Ordered By: Cinthia Wilson on 05-03-2025 Urea nitrogen [Mass/Vol] 23 mg/dL High 4-19 [facility] Sodium levelOrdered By: Cinhtia Wilson on 05-03-2025 Sodium [Moles/Vol] 136 mmol/L 133-145 [facility] Squamous epithelial cells de tection in urine sediment by light microscopyOrdered By: Cinthia iWlson on 05-03-2025 Epithelial cells.squamous LM Ql (Urine sed) 0 SEEN /hpf 0-5 [facility] Total proteinOrdered By: Martha Wilson on 05-03-2025 Protein [Mass/Vol] 7.3 g/dL 5.9-8.4 [facility] Urinalysis, Completeon 05-03 WBC >100 SEEN Normal 0-5 [facility] Comment on above: Order Comment: NO CTOR TO SPECIFY Performed By: #### M 100.2200 #### [facility] [address] [place], [address] BACTERIA 0 SEEN Normal None Seen [facility] Comment on above: Order Comment: NO CTOR TO SPECIFY Performed By: #### M 100.2200 #### [facility] [address] [place], [address] EPI,SQUAMOUS 0 SEEN Normal 0-5 [facility] Comment on above: Order Comment: NO CTOR TO SPECIFY Performed By: #### M 100.2200 #### [facility] [address] [place], [address] Mucus Ql (Urine sed) 0 SEEN Normal [facility] Comment on above: Order Comment: NO CTOR TO SPECIFY Performed By: #### M 100.2200 #### [facility] [address] [place], [address] RBC 0 SEEN Normal 0-[address] [place] [address] Comment on above: Order Comment: NO CTOR TO SPECIFY Performed By: #### M 100.2200 #### [facility] [address] [place], [address] Urine clarityOrdered By: Martha Wilson on 05-03-2025 Clarity (U) Cloudy Clear [facility] Urine color determinationOrd ered By: Cinthia Wilson on 05-03-2025 Color (U) Yellow Yellow [facility] Urine cultureOrdered By: Martha Wilson on 05-03-2025 Bacteria identified Cx Nom (U) Staphylococcus aureus Abnormal [facility] Urine glucose detectionOrder ed By: Cinthia Wilson on 05-03-2025 Glucose Ql (U) 250 mg/dl High Normal [facility] Urine leukocyte esterase det ection by dipstickOrdered By: Cinthia Wilson on 05-03-2025 Leukocyte esterase Test strip Ql (U) 500 /ul High Negative [facility] Urine pHOrdered By: Cinthia massey on 05-03-2025 pH (U) 6.0 [pH] 5.0 - 8.0 [facility] Urine sediment bacteria coun t by microscopy (number/high power field)Ordered By: Cinthia Wilson on 05-03-2025 Bacteria LM.HPF (Urine sed) [#/Area] 0 /[HPF] None Seen [facility] Urine specific gravity measu rementOrdered By: Cinthia Wilson on 05-03-2025 Specific gravity (U) [Rel density] 1.010 1.002-1.030 [facility] Urine urobilinogen measureme ntOrdered By: Cinthia Wilson on 05-03-2025 Urobilinogen Ql (U) Normal mg/dl Normal [facility] White blood cell (WBC) count Ordered By: Cinthia Wilson on 05-03-2025 WBC (Bld) [#/Vol] 9.6 10*3/uL 4.4-11.0 [facility] White blood cell countOrdere d By: Cinthia Wilson on 05-03-2025 White blood cell count >100 SEEN /hpf 0-5 [facility] Bilirubin Test strip Ql (U)O rdered By: Linden Chavez on 04-26-2025 Bilirubin Ql (U) Negative Negative [facility] Ketones Test strip Ql (U)Ord ered By: Linden Chavez on 04-26-2025 Ketones Ql (U) Negative Negative [facility] Microalb:Creat Ratio,Random URon 04-26-2025 Creatinine [Mass/Vol] 31.70 mg/dL Low 39.00-259.00 [facility] Comment on above: Performed By: #### M 100.2200 #### [facility] [address] [place], [address] MALB:CREAT 564.7 mg/g CRE Normal [facility] Comment on above: Performed By: #### M 100.2200 #### [facility] [address] [place], [address] MICROALBUMIN,UR 179.0 mg/L Normal NO RANGE EST. [facility] Comment on above: Performed By: #### M 100.2200 #### [facility] [address] [place], [address] Nitrite Test strip Ql (U)Ord ered By: Linden Chavez on 04-26-2025 Nitrite Ql (U) Negative Negative [facility] Protein Test strip Ql (U)Ord ered By: Linden Chavez on 04-26-2025 Protein Ql (U) 100 mg/dl High Negative [facility] Random urine creatinine yayo urement (mass/volume)Ordered By: Linden Chavez on 04-26-2025 Creatinine Unsp time (U) [Mass/Vol] 31.70 mg/dL Low 39.00-259.00 [facility] Urinalysis, Routine (Dipstic k)on 04-26-2025 BILIRUBIN URINE Negative Normal Negative [facility] Comment on above: Order Comment: MIACL BRIDGET CATCH Performed By: #### M 100.2200 #### [facility] [address] [place], [address] Clarity (U) Cloudy Normal Clear [facility] Comment on above: Order Comment: MIACL BRIDGET CATCH Performed By: #### M 100.2200 #### [facility] [address] [place], [address] Color (U) Yellow Normal Yellow [facility] Comment on above: Order Comment: MIACL BRIDGET CATCH Performed By: #### M 100.2200 #### [facility] [address] [place], [address] GLUCOSE, UR 1000 mg/dl Abnormal Normal [facility] Comment on above: Order Comment: MIACL BRIDGET CATCH Performed By: #### M 100.2200 #### [facility] [address] [place], [address] KETONE UR Negative Normal Negative [facility] Comment on above: Order Comment: MIACL BRIDGET CATCH Performed By: #### M 100.2200 #### [facility] [address] [place], [address] LEUK ESTERASE 500 /ul Abnormal Negative [facility] Comment on above: Order Comment: MIACL BRIDGET CATCH Performed By: #### M 100.2199 #### [facility] [address] [place], [address] Nitrite Ql (U) Negative Normal Negative [facility] Comment on above: Order Comment: MIACL BRIDGET CATCH Performed By: #### M 100.2199 #### [facility] [address] [place], [address] OCCULT BLOOD-UR 150 /ul Abnormal Negative [facility] Comment on above: Order Comment: MIACL BRIDGET CATCH Performed By: #### M 100.0 #### [facility] [address] [place], [address] pH UR 7.0 Normal 5.0 - 8.0 [facility] Comment on above: Order Comment: MIACL BRIDGET CATCH Performed By: #### M 100.2200 #### [facility] [address] [place], [address] PROT DIPSTX 100 mg/dl Abnormal Negative [facility] Comment on above: Order Comment: MIACL BRIDGET CATCH Performed By: #### M 100.2200 #### [facility] [address] [place], [address] SP.GR. DIPSTX 1.010 Normal 1.002-1.030 [facility] Comment on above: Order Comment: MIACL BRIDGET CATCH Performed By: #### M 100.2200 #### [facility] [address] [place], [place], [id number] UROBILI Normal Normal Normal [facility] Comment on above: Order Comment: MIACL BRIDGET CATCH Performed By: #### M 100.2200 #### [facility] [address] [place], [place], [id number] Urine albumin measurement wi detection limit of 20 mg/L or less (mass/volume)Ordered By: Linden Chavez on 04-26-2025 Albumin DL <= 20 mg/L (U) [Mass/Vol] 179.0 mg/L NO RANGE EST. [facility] Urine clarityOrdered By: Noemy Chavez on 04-26-2025 Clarity (U) Cloudy Clear [facility] Urine color determinationOrd ered By: Linden Chavez on 04-26-2025 Color (U) Yellow Yellow [facility] Urine glucose detectionOrder ed By: Linden Chavez on 04-26-2025 Glucose Ql (U) 1000 mg/dl High Normal [facility] Urine leukocyte esterase det ection by dipstickOrdered By: Linden Chavez on 04-26-2025 Leukocyte esterase Test strip Ql (U) 500 /ul High Negative [facility] Urine pHOrdered By: Linden tripathi on 04-26-2025 pH (U) 7.0 [pH] 5.0 - 8.0 [facility] Urine specific gravity measu rementOrdered By: Linden Chavez on 04-26-2025 Specific gravity (U) [Rel density] 1.010 1.002-1.030 [facility] Urine urobilinogen measureme ntOrdered By: Linden Chavez on 04-26-2025 Urobilinogen Ql (U) Normal mg/dl Normal [facility] Celiac Disease Profileon ENDOMYSIAL IGA Negative Normal Negative [facility] Comment on above: Performed By: #### L 100.0100, L501.5200, L500.2500 #### [facility] [address] [place], [place], [id number] IMMUNOGLOB A QN 364 mg/dL Normal 61-437 [facility] Comment on above: Result Comment: Perf ormed at: [facility] [address] [id number] [employer] Technician: Rasheed Denney PhD, Phone: [phone] Performed By: #### L 100.0100, L501.5200, L500.2500 #### [facility] [address] [place], [place], [id number] tTG IGA <2 Normal 0-3 [facility] Comment on above: Result Comment: Nega tive 0 - 3 Weak Positive 4 - 10 Positive >10 Tissue Transglutaminase (tTG) has been identified as the endomysial antigen. Studies have demonstr- ated that endomysial IgA antibodies have over 99% specificity for gluten sensitive enteropathy. Performed By: #### L 100.0100, L501.5200, L500.2500 #### [facility] [address] [place], [address] Bilirubin directOrdered By: Linden Chavez on 04-23-2025 Bilirubin.direct [Mass/Vol] 0.16 mg/dL 0.00-0.30 [facility] Bilirubin, totalOrdered By: Linden Chavez on 04-23-2025 Bilirubin [Mass/Vol] 0.40 mg/dL 0.00-1.30 [facility] CRPon 04-23-2025 C-REACTIVE PROT 15.50 mg/L High 0.0-3.0 [facility] Comment on above: Performed By: #### L 100.0100, L501.5200, L500.2500 #### [facility] [address] [place], [address] Calculated very low density lipoprotein (VLDL) cholesterol measurementOrdered By: Linden Chavez on 04-23-2025 Calculated very low density lipoprotein (VLDL) cholesterol measurement 37 mg/dL 5-40 [facility] Erythrocyte Sed Rateon 04-23 SED RATE 12 mm/hr Normal 0-20 [facility] Comment on above: Performed By: #### L 100.0100, L501.5200, L500.2500 #### [facility] [address] [place], [place], [address] Erythrocyte sedimentation ra teOrdered By: Linden Chavez on 04-23-2025 ESR (Bld) [Velocity] 12 mm/h 0-20 [facility] Hemoglobin A1con 04-23-2025 HbA1c (Bld) [Mass fraction] 11.6 % High <=5.6 [facility] Comment on above: Result Comment: Norm al < 5.7 % Prediabetic 5.7 - 6.4 % Diabetic >or= 6.5 % Please note range changes. Performed By: #### L 100.0100, L501.5200, L500.2500 #### [facility] [address] [place], [place], [id number] Hemoglobin A1c percentageOrd ered By: Linden RiosScott on 04-23-2025 HbA1c (Bld) [Mass fraction] 11.6 % High <5.7 [facility] Comment on above: Normal < 5.7 % Predi abetic 5.7 - 6.4 % Diabetic >or= 6.5 % Please note range changes. Hepatitis C Antibodyon 04-23 Hepatitis C Ab Non-Reactive Normal Nonreactive [facility] Comment on above: Result Comment: Reac tive: Presumptive evidence of antibodies to HCV. Follow CDC recommendations for supplemental testing. Non-Reactive: Antibodies to HCV were not detected; does not exclude the possibility of exposure to HCV Reactive Results are presumptive evidence of antibodies to HCV. Follow CDC recommendations for supplemental testing. Order confirmation testing: HCV Quant by PCR testing - HCVPCR #[id number] Non Reactive: < 0.8 Equivocal: >/= 0.8 to < 1.0 Reactive: >/= 1.0 The CDC requires that a reactive/equivocal HCV antibody result be sent out for confirmation. HCV Quant by PCR testing. Performed By: #### L 100.0100, L501.5200, L500.2500 #### [facility] [address] [place], [address] LDL calc ser/plasOrdered By: Linden Chavez on 04-23-2025 Cholesterol in LDL [Mass/Vol] 100 mg/dL [facility] Comment on above: Qmqpzarhuo=796-483 m g/dL & Higher Rlpr=281 mg/dL or greater Laboratory - Chemistry and C hemistry - challengeOrdered By: Linden Chavez on 04-23-2025 AST [Catalytic activity/Vol] 11 U/L <38 [facility] Lipid Profileon 04-23-2025 CHOL:HDL 5.04 Normal [facility] Comment on above: Performed By: #### L 100.0100, L501.5200, L500.2500 #### [facility] [address] [place], [address] Cholesterol [Mass/Vol] 171 mg/dL Normal <=200 [facility] Comment on above: Result Comment: Chol esterol level, Desirable <200 mg/dL Borderline high cholesterol 200-239 mg/dL High cholesterol >=240 mg/dL Recommendations of the NCEP Adult Treatment Panel for the following risk-cutoff thresholds for the [place] population. Performed By: #### L 100.0100, L501.5200, L500.2500 #### [facility] [address] [place], [address] Cholesterol in HDL [Mass/Vol] 34 mg/dL Low [facility] Comment on above: Result Comment: Adeline onal Cholesterol Education Program (NCEP) guidelines: <40 mg/dL: Low HDL-cholesterol (major risk factor for CHD) >= 60 mg/dL: High HDL-cholesterol (negative risk factor for CHD) HDL-cholesterol is affected by a number of factors, e.g. smoking, exercise, hormones, sex and age. Performed By: #### L 100.0100, L501.5200, L500.2500 #### [facility] [address] [place], [address] Cholesterol in LDL [Mass/Vol] 100 mg/dL Normal [facility] Comment on above: Result Comment: Bord lbiqtc=529-050 mg/dL Higher Uuhs=017 mg/dL or greater Performed By: #### L 100.0100, L501.5200, L500.2500 #### [facility] [address] [place], [address] Cholesterol in VLDL [Mass/Vol] 37 mg/dL Normal 5-40 [facility] Comment on above: Performed By: #### L 100.0100, L501.5200, L500.2500 #### [facility] [address] [place], [address] Triglyceride [Mass/Vol] 187 mg/dL Normal [facility] Comment on above: Result Comment: The drugs N-Acetylcysteine and Metamizole may falsely depress this assay. Normal range: <150 mg/dL Borderline High: 150-199 mg/dL High: 200-499 mg/dL Very High: >500 mg/dL Performed By: #### L 100.0100, L501.5200, L500.2500 #### [facility] [address] [place], [address] Liver Profileon 04-23-2025 Albumin [Mass/Vol] 3.9 g/dL Normal 3.4-4.8 [facility] Comment on above: Performed By: #### L 100.0100, L501.5200, L500.2500 #### [facility] [address] [place], [address] ALK PHOS 102 U/L Normal 40-129 [facility] Comment on above: Performed By: #### L 100.0100, L501.5200, L500.2500 #### [facility] [address] [place], [address] ALT [Catalytic activity/Vol] 8 U/L Normal <=46 [facility] Comment on above: Performed By: #### L 100.0100, L501.5200, L500.2500 #### [facility] [address] [place], [address] AST [Catalytic activity/Vol] 11 U/L Normal <=37 [facility] Comment on above: Performed By: #### L 100.0100, L501.5200, L500.2500 #### [facility] [address] [place], [address] Bilirubin [Mass/Vol] 0.40 mg/dL Normal 0.00-1.30 [facility] Comment on above: Performed By: #### L 100.0100, L501.5200, L500.2500 #### [facility] [address] [place], [address] Bilirubin.direct [Mass/Vol] 0.16 mg/dL Normal 0.00-0.30 [facility] Comment on above: Performed By: #### L 100.0100, L501.5200, L500.2500 #### [facility] [address] [place], [address] Globulin (S) [Mass/Vol] 3.0 g/dL Normal 2.2-4.2 [facility] Comment on above: Performed By: #### L 100.0100, L501.5200, L500.2500 #### [facility] [address] [place], [address] T PROT 6.9 g/dL Normal 5.9-8.4 [facility] Comment on above: Performed By: #### L 100.0100, L501.5200, L500.2500 #### [facility] [address] [place], [address] PSA,Total - Annual Screenon 04-23-2025 PSA,TOT SCREEN 0.35 ng/mL Normal 0.02-4.00 [facility] Comment on above: Result Comment: This [...] confirm baseline values. Performed By: #### L 100.0100, L501.5200, L500.2500 #### [facility] [address] [place], [address] Screening total cholesterol/ high density lipoprotein (HDL) cholesterol ratioOrdered By: Linden Chavez on 04-23-2025 Cholesterol.total/Carol sterol in HDL [Mass ratio] 5.04 {ratio} [facility] Serum globulin measurementOr dered By: Linden Chavez on 04-23-2025 Globulin (S) [Mass/Vol] 3.0 g/dL 2.2-4.2 [facility] Serum or plasma C reactive p rotein measurement (mass/volume)Ordered By: Linden Chavez on 04-23-2025 CRP [Mass/Vol] 15.50 mg/L High 0.0-3.0 [facility] Serum or plasma IgA measurem ent (mass/volume)Ordered By: Linden Chavez on 04-23-2025 IgA [Mass/Vol] 364 mg/dL 61-437 [facility] Comment on above: Performed at: [address] [id number] Director: Rasheed Denney PhD, Phone: [phone] Serum or plasma alanine wagoner otransferase (ALT) measurementOrdered By: Linden Chavez on 04-23-2025 ALT [Catalytic activity/Vol] 8 U/L <47 [facility] Serum or plasma albumin yayo urement (mass/volume)Ordered By: Linden Chavez on 04-23-2025 Albumin [Mass/Vol] 3.9 g/dL 3.4-4.8 [facility] Serum or plasma alkaline andrzej sphatase measurementOrdered By: Linden Chavez on 04-23-2025 ALP [Catalytic activity/Vol] 102 U/L 40-129 [facility] Serum or plasma cholesterol in HDL measurement (mass/volume)Ordered By: Linden Chavez on 04-23-2025 Cholesterol in HDL [Mass/Vol] 34 mg/dL Low >40 [facility] Comment on above: National Cholesterol Education Program (NCEP) guidelines:<40 mg/dL: Low HDL-cholesterol (major risk factor for CHD)>= 60 mg/dL: High HDL-cholesterol (negative risk factor for CHD)HDL-cholesterol is affected by a number of factors, e.g. smoking, exercise, hormones, sex and age. Serum or plasma cholesterol measurement (mass/volume)Ordered By: Linden Chavez on 04-23-2025 Cholesterol [Mass/Vol] 171 mg/dL <201 [facility] Comment on above: Cholesterol level, D esirable <200 mg/dLBorderline high cholesterol 200-239 mg/dLHigh cholesterol >=240 mg/dLRecommendations of the NCEP Adult Treatment Panel for the following risk-cutoff thresholds for the [place] population. Serum tissue transglutaminas e (tTG) IgA antibody assay (units/volume)Ordered By: Linden Chavez on 04-23-2025 tTG IgA Qn (S) <2 U/mL 0-3 [facility] Comment on above: Negative 0 - 3 Weak Positive 4 - 10 Positive >10 Tissue Transglutaminase (tTG) has been identified as the endomysial antigen. Studies have demonstr- ated that endomysial IgA antibodies have over 99% specificity for gluten sensitive enteropathy. TSH DL <= 0.005 mIU/L QnOrde red By: Linden Chavez on 04-23-2025 TSH Qn 13.600 uIU/mL High 0.300-4.200 [facility] Thyroid Stim Hormone (TSH)on 04-23-2025 TSH 13.600 uIU/mL High 0.300-4.200 [facility] Comment on above: Performed By: #### L 100.0100, L501.5200, L500.2500 #### [facility] [address] [place], [address] Total proteinOrdered By: Noemy Chavez on 04-23-2025 Protein [Mass/Vol] 6.9 g/dL 5.9-8.4 [facility] Triglycerides measurementOrd ered By: Linden Chavez on 04-23-2025 Triglyceride [Mass/Vol] 187 mg/dL <199 [facility] Comment on above: The drugs N-Acetylcy steine and Metamizole may falsely depress this assay. Normal range: <150 mg/dLBorderline High: 150-199 mg/dLHigh: 200-499 mg/dLVery High: >500 mg/dL Emergency Department Summary on 04-21-2025 Emergency Department Summary [facility] Medical Records Department [address] [place] [address] Emergency Department Summary 04/21/25 MR#: [id number] Acct: [id number] Name: JERALD YODER Rep #: [id number] : 1960 65 From: Ar Calle MD [...] similar symptoms: No Recent Illness/Hospitalization : [facility] Medical History Partial traumatic amputation of [...] 96 9 (more content not included)... Normal [facility] Knee 4 or More Viewson 04-21 Knee 4 or More Views [facility] Imaging Services [address] [place] [address] Knee 4 or More Views MR#: [id number] Acct: [id number] Name: JERALD YODER Rep #: [id number] : 1960 M 65 From: Domenico Dewey DO PCP: Care Physician,No Primary Status: REG ER Study: Knee 4 or More Views Date of Exam: 04/21/25 Exam# [id number] Ordering Dr: Ar Calle MD PROCEDURE: KNEE 4 OR MORE VIEWS 04/21/2025 REASON FOR EXAM: INJURY/PAIN Initial encounter TECHNIQUE: KNEE 4 OR MORE VIEWS COMPARISON: None. FINDINGS: Bones: No fracture. No dislocation. Joints: Cartilage thinning and periarticular osteophytes indicate osteoarthritis Effusion: None. Soft tissues: Unremarkable Other: RAD/Knee 4 or More Views IMPRESSION: No acute process detected. Reading Location: [facility] CC: Dr. 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 Normal [facility] Urine Cultureon 02-18-2025 [facility] Staphylococcus aureu s [place] Count >100,000 Staphylococcus aureus: REACTION cefOXitin Susc Islt Doxycycline Islt NASRIN <=0.5 S Clindamycin.induced Susc Islt NEG Gentamicin Islt NASRIN <=0.5 S Linezolid Islt NASRIN 2 S Moxifloxacin Islt NASRIN <=0.25 S Nitrofurantoin Islt NASRIN <=16 S Oxacillin Susc Islt 0.5 S Tetracycline Islt NASRIN <=1 S TMP SMX Islt NASRIN <=10 S Vancomycin Islt NASRIN 1 S Normal [facility] Comment on above: Performed By: #### M 100.2200 #### [facility] [address] [place], [address] Absolute lymphocyte countOrd ered By: Johann Lemons on 02-16-2025 Lymphocytes Auto (Unsp spec) [#/Vol] 1.39 10*3/uL 0.83-4.51 [facility] Absolute neutrophil countOrd ered By: Johann Lemons on 02-16-2025 Neutrophils (Bld) [#/Vol] 6.4 10*3/uL 2.0-7.7 [facility] Absolute neutrophil count 6.4 X10^3/uL 2.0-7.7 [facility] Anion gap [Moles/Vol]Ordered By: Johann Lemons on 02-16-2025 Anion gap in Serum or Plasma 10 - [facility] Anion gap in Serum or Plasma Ordered By: Johann Lemons on 02-16-2025 Anion gap [Moles/Vol] 10 mmol/L - [facility] Automated lymphocyte count a s percentage of total leukocytesOrdered By: Johann Lemons on 02-16-2025 Lymphocytes/100 WBC Auto (Unsp spec) 16.0 % Low - [facility] BUN/creatinine ratioOrdered By: Johann Lemons on 02-16-2025 Urea nitrogen/Creatinine [Mass ratio] 16.0 mg/mg - [facility] BUN/creatinine ratio 16.0 RATIO 10-20 [facility] Base excess Calc (BldV) [Mol es/Vol]Ordered By: Johann Lemons on 02-16-2025 Venous blood base excess measurement 8 mmol/L High -1.0-3.5 [facility] Basic Metabolic Profile (BMP )on 02-16-2025 BUN/CRE 16.0 RATIO Normal 10-20 [facility] Comment on above: Performed By: #### L 100.0100, L501.5200, L500.2500 #### [facility] [address] [place], [address] Calcium [Mass/Vol] 9.2 mg/dL Normal 7.6-11.0 [facility] Comment on above: Performed By: #### L 100.0100, L501.5200, L500.2500 #### [facility] [address] [place], [address] Chloride [Moles/Vol] 94 mmol/L Low 98-108 [facility] Comment on above: Performed By: #### L 100.0100, L501.5200, L500.2500 #### [facility] [address] [place], [address] CO2 [Moles/Vol] 27.2 mmol/L Normal 21.0-32.0 [facility] Comment on above: Performed By: #### L 100.0100, L501.5200, L500.2500 #### [facility] [address] [place], [address] Creatinine [Mass/Vol] 0.90 mg/dL Normal 0.70-1.20 [facility] Comment on above: Performed By: #### L 100.0100, L501.5200, L500.2500 #### [facility] [address] [place], [address] ECRCL 104.50 ml/min Normal 50-250 [facility] Comment on above: Performed By: #### L 100.0100, L501.5200, L500.2500 #### [facility] [address] [place], [address] GAP 10 Normal 5-15 [facility] Comment on above: Performed By: #### L 100.0100, L501.5200, L500.2500 #### [facility] [address] [place], [address] GFR/1.73 sq M.predicted among non-blacks MDRD (S/P/Bld) [Vol rate/Area] 96 mL/min/{1.73_m2} Normal >60 [facility] Comment on above: Result Comment: mL/m in/1.73m2 CKD-EPI Creatinine Equation (2020) Performed By: #### L 100.0100, L501.5200, L500.2500 #### [facility] [address] [place], [address] Glucose [Mass/Vol] 453 mg/dL Invalid Interpretation Code 70-99 [facility] Comment on above: Result Comment: Crit ical Result(s) Called at 0505: by:?? NBURNS TO ENRRIQUE Results read back by same. Performed By: #### L 100.0100, L501.5200, L500.2500 #### [facility] [address] [place], [address] Potassium [Moles/Vol] 3.9 mmol/L Normal 3.3-5.1 [facility] Comment on above: Performed By: #### L 100.0100, L501.5200, L500.2500 #### [facility] [address] [place], [address] Sodium [Moles/Vol] 131 mmol/L Low 133-145 [facility] Comment on above: Performed By: #### L 100.0100, L501.5200, L500.2500 #### [facility] [address] [place], [address] Urea nitrogen [Mass/Vol] 14 mg/dL Normal 4-19 [facility] Comment on above: Performed By: #### L 100.0100, L501.5200, L500.2500 #### [facility] [address] [place], [address] Basophil percentageOrdered B y: Johann Lemons on 02-16-2025 Basophils/100 WBC (Bld) 0.5 % 0-1 [facility] Basophil percentage 0.5 % 0-1 [facility] Bedside Glucoseon 02-16-2025 FINGERSTICK GLU 340 mg/dL High 74-106 [facility] Comment on above: Result Comment: TAYLOR GEMENT OF PATIENT CARE PER NURSING PROTOCOL Performed By: #### L 100.0100, L501.5200, L500.2500 #### [facility] [address] [place], [address] FINGERSTICK GLU 341 mg/dL High 74-106 [facility] Comment on above: Result Comment: TAYLOR GEMENT OF PATIENT CARE PER NURSING PROTOCOL Performed By: #### L 100.0100, L501.5200, L500.2500 #### [facility] [address] [place], [address] FINGERSTICK GLU 414 mg/dL High 74-106 [facility] Comment on above: Result Comment: TAYLOR GEMENT OF PATIENT CARE PER NURSING PROTOCOL Performed By: #### L 100.0100, L501.5200, L500.2500 #### [facility] [address] [place], [address] Beta hydroxybutyrate [Mass/V ol]Ordered By: Johann Lemons on 02-16-2025 Beta-hydroxybutyrate 0.1 mmol/L 0.0-0.3 [facility] Beta-Hydroxbytyrateon 2024 BETA-HYDROXYBUT 0.1 mmol/L Normal 0.0-0.3 [facility] Comment on above: Performed By: #### L 100.0100, L501.5200, L500.2500 #### [facility] [address] [place], [address] Beta-hydroxybutyrateOrdered By: Johann Lemons on 02-16-2025 Beta hydroxybutyrate [Mass/Vol] 0.1 mmol/L 0.0-0.3 [facility] Bilirubin Test strip Ql (U)O rdered By: Johann Lemons on 02-16-2025 Bilirubin Ql (U) Negative Negative [facility] CBC W/Diff, Automatedon 01-29 Absolute Lymph 1.39 X10 3/uL Normal 0.83-4.51 [facility] Comment on above: Performed By: #### L 100.0100, L501.5200, L500.2500 #### [facility] [address] [place], [address] Absolute Neut 6.4 X10 3/uL Normal 2.0-7.7 [facility] Comment on above: Performed By: #### L 100.0100, L501.5200, L500.2500 #### [facility] [address] [place], [address] Basophils/100 WBC (Bld) 0.5 % Normal 0-1 [facility] Comment on above: Performed By: #### L 100.0100, L501.5200, L500.2500 #### [facility] [address] [place], [address] Eosinophils/100 WBC (Bld) 2.4 % Normal 0-5 [facility] Comment on above: Performed By: #### L 100.0100, L501.5200, L500.2500 #### [facility] [address] [place], [address] Erythrocyte distribution width (RBC) [Ratio] 12.9 % Normal 11.6-14.6 [facility] Comment on above: Performed By: #### L 100.0100, L501.5200, L500.2500 #### [facility] [address] [place], [address] Hematocrit (Bld) [Volume fraction] 34.5 % Low 40-54 [facility] Comment on above: Performed By: #### L 100.0100, L501.5200, L500.2500 #### [facility] [address] [place], [address] Hemoglobin (Bld) [Mass/Vol] 12.2 g/dL Low 13.0-16.5 [facility] Comment on above: Performed By: #### L 100.0100, L501.5200, L500.2500 #### [facility] [address] [place], [address] IG% 0.500 Normal 0.0-0.9 [facility] Comment on above: Result Comment: IG% - Immature Granulocytes (promyelocytes, myelocytes and metamyelocytes) > 1% indicates that a LEFT SHIFT is Present. Performed By: #### L 100.0100, L501.5200, L500.2500 #### [facility] [address] [place], [address] Lymphocytes/100 WBC (Bld) 16.0 % Low 19-41 [facility] Comment on above: Performed By: #### L 100.0100, L501.5200, L500.2500 #### [facility] [address] [place], [address] MCH (RBC) [Entitic mass] 28.0 pg Normal 27.0-32.0 [facility] Comment on above: Performed By: #### L 100.0100, L501.5200, L500.2500 #### [facility] [address] [place], [address] MCHC (RBC) [Mass/Vol] 35.4 g/dL Normal 32-36 [facility] Comment on above: Performed By: #### L 100.0100, L501.5200, L500.2500 #### [facility] [address] [place], [address] MCV (RBC) [Entitic vol] 79.3 fL Low 80-94 [facility] Comment on above: Performed By: #### L 100.0100, L501.5200, L500.2500 #### [facility] [address] [place], [address] Monocytes/100 WBC (Bld) 7.1 % Normal 0-10 [facility] Comment on above: Performed By: #### L 100.0100, L501.5200, L500.2500 #### [facility] [address] [place], [address] Neutrophils/100 WBC (Bld) 73.5 % High 47-70 [facility] Comment on above: Performed By: #### L 100.0100, L501.5200, L500.2500 #### [facility] [address] [place], [address] Nucleated RBC (Bld) [#/Vol] 0 10*3/uL Normal 0-5 [facility] Comment on above: Performed By: #### L 100.0100, L501.5200, L500.2500 #### [facility] [address] [place], [address] Platelet mean volume (Bld) [Entitic vol] 8.8 fL Normal 6.2-12.0 [facility] Comment on above: Performed By: #### L 100.0100, L501.5200, L500.2500 #### [facility] [address] [place], [address] Platelets (Bld) [#/Vol] 230 10*3/uL Normal 150-450 [facility] Comment on above: Performed By: #### L 100.0100, L501.5200, L500.2500 #### [facility] [address] [place], [address] RBC (Bld) [#/Vol] 4.35 10*6/uL Low 4.6-6.2 [facility] Comment on above: Performed By: #### L 100.0100, L501.5200, L500.2500 #### [facility] [address] [place], [address] RDW SD 36.9 fl Normal 35.1-43.9 [facility] Comment on above: Performed By: #### L 100.0100, L501.5200, L500.2500 #### [facility] [address] [place], [address] WBC (Bld) [#/Vol] 8.7 10*3/uL Normal 4.4-11.0 [facility] Comment on above: Performed By: #### L 100.0100, L501.5200, L500.2500 #### [facility] [address] [place], [address] CO2 (BldV) [Moles/Vol]Ordere d By: Johann Lemons on 02-16-2025 CO2 [Moles/Vol] 34 mmol/L High 23-33 [facility] Venous blood total carbon dioxide measurement 34 mmol/L High 23-33 [facility] CO2 (BldV) [Partial pressure ]Ordered By: Johann Lemons on 02-16-2025 Venous blood partial pressure of carbon dioxide measurement 54.5 mmHg High 41-51 [facility] Calcium [Mass/Vol]Ordered By : Johann Lemons on 02-16-2025 Serum or plasma calcium measurement (mass/volume) 9.2 mg/dL 7.6-11.0 [facility] Carbon dioxide, total [Moles /volume] in Central venous bloodOrdered By: Johann Lemons on 02-16-2025 CO2 [Moles/Vol] 27.2 mmol/L 21.0-32.0 [facility] Carbon dioxide, total [Moles/volume] in Central venous blood 27.2 mmol/L 21.0-32.0 [facility] Chest PA and Lateralon 02-16 Chest PA and Lateral [facility] Imaging Services [address] [place] [address] Chest PA and Lateral MR#: [id number] Acct: [id number] Name: JERALD YODER Rep #: [id number] : 1960 M 64 From: Tacho Alcaraz MD PCP: Care Physician,No Primary Status: REG ER Study: Chest PA and Lateral Date of Exam: 02/16/25 Exam# [id number] Ordering Dr: Johann Lemons DO PROCEDURE: CHEST [...] Johann Lemons DO; No 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 Normal [facility] Chloride assayOrdered By: Julia Lemons on 02-16-2025 Chloride [Moles/Vol] 94 mmol/L Low 98-108 [facility] Chloride assay 94 mmol/L Low 98-108 [facility] Clarity (U)Ordered By: Roland Lemons on 02-16-2025 Urine clarity Turbid Clear [facility] Color (U)Ordered By: Johann Lemons on 02-16-2025 Urine color determination Yellow Yellow [facility] [facility] Creatinine [Mass/Vol]Ordered By: Johann Lemons on 02-16-2025 Serum creatinine measurement (mass/volume) 0.90 mg/dL 0.70-1.20 [facility] Emergency Department Summary on 02-16-2025 Emergency Department Summary [facility] Medical Records Department [address] [place] [address] Emergency Department Summary 02/16/25 MR#: [id number] Acct: [id number] Name: JERALD YODER Rep #: [id number] : 1960 64 From: Johann Lemons DO [...] symptoms and therefore comes in for evaluation [facility] Medical History (Updated 02/16/25 @ 07:40 [...] mucous membranes (more content not included)... Normal [facility] Eosinophil percentageOrdered By: Johann Lemons on 02-16-2025 Eosinophils/100 WBC (Bld) 2.4 % 0-5 [facility] Eosinophil percentage 2.4 % 0-5 [facility] Erythrocyte distribution wid th (RBC) [Ratio]Ordered By: Johann Lemons on 02-16-2025 Erythrocyte distribution width ratio 12.9 % 11.6-14.6 [facility] Erythrocyte distribution width standard deviation 36.9 fl 35.1-43.9 [facility] Erythrocyte distribution wid th ratioOrdered By: Johann Lemons on 02-16-2025 Erythrocyte distribution width (RBC) [Ratio] 12.9 % 11.6-14.6 [facility] Erythrocyte distribution wid th standard deviationOrdered By: Johann Lemons on 02-16-2025 Erythrocyte distribution width (RBC) [Ratio] 36.9 fl 35.1-43.9 [facility] Estimation of creatinine edinson aranceOrdered By: Johann Lemons on 02-16-2025 Estimation of creatinine clearance 104.50 ml/min 50-250 [facility] GFR/1.73 sq M.predicted mari g non-blacks MDRD (S/P/Bld) [Vol rate/Area]Ordered By: Johann Lemons on 02-16-2025 Glomerular filtration rate (GFR) estimation/1.73 sq m using serum, plasma, or whole b 96 >60 [facility] Glomerular filtration rate ( GFR) estimation/1.73 sq m using serum, plasma, or whole bOrdered By: Johann Lemons on 02-16-2025 GFR/1.73 sq M.predicted among non-blacks MDRD (S/P/Bld) [Vol rate/Area] 96 mL/min/{1.73_m2} >60 [facility] Comment on above: mL/min/1.73m2 CKD-EP I Creatinine Equation (2020) Glucose Ql (U)Ordered By: Julia Lemons on 02-16-2025 Urine glucose detection 1000 mg/dl High Normal [facility] Glucose [Mass/Vol]Ordered By : Johann Lemons on 02-16-2025 Serum glucose measurement (mass/volume) 453 mg/dL High 70-99 [facility] Glucose measurement at bedsi deOrdered By: Johann Lemons on 02-16-2025 Glucose [Mass/Vol] 340 mg/dL High 74-106 [facility] Comment on above: MANAGEMENT OF PATIEN T CARE PER NURSING PROTOCOL Glucose measurement at bedside 341 mg/dL High 74-106 [facility] Hematocrit Auto (Bld) [Volum e fraction]Ordered By: Johann Lemons on 02-16-2025 Hematocrit (Bld) [Volume fraction] 34.5 % Low 40-54 [facility] Automated blood hematocrit (percentage) 34.5 % Low 40-54 [facility] Hemoglobin measurementOrdere d By: Johann Lemons on 02-16-2025 Hemoglobin (Bld) [Mass/Vol] 12.2 g/dL Low 13.0-16.5 [facility] Hemoglobin measurement 12.2 g/dL Low 13.0-16.5 [facility] Immature granulocytes/100 WB C Auto (Bld)Ordered By: Johann Lemons on 02-16-2025 Immature granulocytes/100 WBC (Bld) 0.500 % 0.0-0.9 [facility] Comment on above: IG% - Immature Granu locytes (promyelocytes, myelocytes and metamyelocytes) > 1% indicates that a LEFT SHIFT is Present. Automated immature granulocyte percentage 0.500 % 0.0-0.9 [facility] Ketones Test strip Ql (U)Ord ered By: Johann Lemons on 02-16-2025 Ketones Ql (U) Negative Negative [facility] Leukocyte esterase Test stri p Ql (U)Ordered By: Johann Lemons on 02-16-2025 Urine leukocyte esterase detection by dipstick 500 /ul High Negative [facility] Lymphocytes Auto (Unsp spec) [#/Vol]Ordered By: Johann Lemons on 02-16-2025 Absolute lymphocyte count 1.39 X10^3/uL 0.83-4.51 [facility] Lymphocytes/100 WBC Auto (Un sp spec)Ordered By: Johann Lemons on 02-16-2025 Automated lymphocyte count as percentage of total leukocytes 16.0 % Low 19-41 [facility] MCV (RBC) [Entitic vol]Order ed By: Johann Lemons on 02-16-2025 MCV (mean corpuscular volume) determination 79.3 fL Low 80-94 [facility] MCV (mean corpuscular volume ) determinationOrdered By: Johann Lemons on 02-16-2025 MCV (RBC) [Entitic vol] 79.3 fL Low 80-94 [facility] Mean corpuscular hemoglobin (MCH) determinationOrdered By: Johann Lemons on 02-16-2025 MCH (RBC) [Entitic mass] 28.0 pg 27.0-32.0 [facility] Mean corpuscular hemoglobin (MCH) determination 28.0 pg 27.0-32.0 [facility] Mean corpuscular hemoglobin concentration (MCHC) determinationOrdered By: Johann Lemons on 02-16-2025 MCHC (RBC) [Mass/Vol] 35.4 g/dL 32-36 [facility] Mean corpuscular hemoglobin concentration (MCHC) determination 35.4 g/dL 32-36 [facility] Mean platelet volume determi nationOrdered By: Johann Lemons on 02-16-2025 Platelet mean volume (Bld) [Entitic vol] 8.8 fL 6.2-12.0 [facility] Mean platelet volume determination 8.8 fl 6.2-12.0 [facility] Microscopic analysis of urin e for red blood cells (RBC)Ordered By: Johann Lemons on 02-16-2025 Microscopic analysis of urine for red blood cells (RBC) 0 SEEN /hpf 0-5 [facility] Microscopic analysis of urine for red blood cells (RBC) 0 SEEN /hpf [facility] Monocyte percentageOrdered B y: Johann Lemons on 02-16-2025 Monocytes/100 WBC (Bld) 7.1 % 0-10 [facility] Monocyte percentage 7.1 % 0-10 [facility] Mucus LM Ql (Urine sed)Order ed By: Johann Lemons on 02-16-2025 Mucus Ql (Urine sed) 0 SEEN /hpf [facility] Neutrophil percentageOrdered By: Johann Lemons on 02-16-2025 Neutrophils/100 WBC (Bld) 73.5 % High 47-70 [facility] Neutrophil percentage 73.5 % High 47-70 [facility] Nitrite Test strip Ql (U)Ord ered By: Johann Lemons on 02-16-2025 Nitrite Ql (U) Positive High Negative [facility] Urine nitrite test by dipstick Positive High Negative [facility] No Panel InformationOrdered By: Johann Lemons on 02-16-2025 Blood Gas Sample Site Not entered [facility] Blood Gas Specimen Type GRACY [facility] Oxygen Delivery Device Not entered [facility] GRACY [facility] Not entered [facility] Nucleated red blood cell per centageOrdered By: Johann Lemons on 02-16-2025 Nucleated RBC/100 WBC (Bld) [Ratio] 0 % 0-5 [facility] Nucleated red blood cell percentage 0 % 0-5 [facility] Oxygen (BldV) [Partial press ure]Ordered By: Johann Lemons on 02-16-2025 Venous blood partial pressure of oxygen measurement 46 mmHg High 25-40 [facility] Platelet countOrdered By: Julia Lemons on 02-16-2025 Platelets (Bld) [#/Vol] 230 10*3/uL 150-450 [facility] Platelet count 230 K/mm3 150-450 [facility] Potassium (Unsp spec) [Mass/ Vol]Ordered By: Johann Lemons on 02-16-2025 Potassium measurement (mass/volume) 3.9 mmol/L 3.3-5.1 [facility] Potassium measurement (mass/ volume)Ordered By: Johann Lemons on 02-16-2025 Potassium (Unsp spec) [Mass/Vol] 3.9 mmol/L 3.3-5.1 [facility] Protein Test strip Ql (U)Ord ered By: Johann Lemons on 02-16-2025 Protein Ql (U) 100 mg/dl High Negative [facility] Urine protein assay by test strip, semi-quantitative 100 mg/dl High Negative [facility] RBC Auto (Bld) [#/Vol]Ordere d By: Johann Lemons on 02-16-2025 RBC (Bld) [#/Vol] 4.35 10*6/uL Low 4.6-6.2 [facility] Automated blood erythrocyte count 4.35 M/mm3 Low 4.6-6.2 [facility] Serum creatinine measurement (mass/volume)Ordered By: Johann Lemons on 02-16-2025 Creatinine [Mass/Vol] 0.90 mg/dL 0.70-1.20 [facility] Serum glucose measurement (m ass/volume)Ordered By: Johann Lemons on 02-16-2025 Glucose [Mass/Vol] 453 mg/dL High 70-99 [facility] Comment on above: Critical Result(s) C alled at 0505: by: MARYAM OSUNA Results read back by same. Serum or plasma calcium yayo urement (mass/volume)Ordered By: Johann Lemons on 02-16-2025 Calcium [Mass/Vol] 9.2 mg/dL 7.6-11.0 [facility] Serum or plasma urea nitroge n measurement (mass/volume)Ordered By: Johann Lemons on 02-16-2025 Urea nitrogen [Mass/Vol] 14 mg/dL 02-16 [facility] Sodium levelOrdered By: Keith Lemons on 02-16-2025 Sodium [Moles/Vol] 131 mmol/L Low 133-145 [facility] Sodium level 131 mmol/L Low 133-145 [facility] Specific gravity (U) [Rel de nsity]Ordered By: Johann Lemons on 02-16-2025 Urine specific gravity measurement 1.010 1.002-1.030 [facility] Squamous epithelial cells de tection in urine sediment by light microscopyOrdered By: Johann Lemons on 02-16-2025 Epithelial cells.squamous LM Ql (Urine sed) 0 SEEN /hpf 0-5 [facility] Urea nitrogen [Mass/Vol]Orde red By: Johann Lemons on 02-16-2025 Serum or plasma urea nitrogen measurement (mass/volume) 14 mg/dL 02-16 [facility] Urinalysis, Completeon 02-16 WBC >100 SEEN Normal 0-5 [facility] Comment on above: Order Comment: CLEAN CATCH Performed By: #### L 100.0100, L501.5200, L500.2500 #### [facility] [address] [place], [address] BACTERIA 0 SEEN Normal None Seen [facility] Comment on above: Order Comment: CLEAN CATCH Performed By: #### L 100.0100, L501.5200, L500.2500 #### [facility] [address] [place], [address] EPI,SQUAMOUS 0 SEEN Normal 0-5 [facility] Comment on above: Order Comment: CLEAN CATCH Performed By: #### L 100.0100, L501.5200, L500.2500 #### [facility] [address] [place], [address] Mucus Ql (Urine sed) 0 SEEN Normal [facility] Comment on above: Order Comment: CLEAN CATCH Performed By: #### L 100.0100, L501.5200, L500.2500 #### [facility] [address] [place], [address] RBC 0 SEEN Normal [address] [place] [address] Comment on above: Order Comment: CLEAN CATCH Performed By: #### L 100.0100, L501.5200, L500.2500 #### [facility] [address] [place], [address] Urine blood detectionOrdered By: Johann Lemons on 02-16-2025 Urine blood detection 150 /ul High Negative [facility] Urine clarityOrdered By: Otoniel Lemons on 02-16-2025 Clarity (U) Turbid Clear [facility] Urine color determinationOrd ered By: Johann Lemons on 02-16-2025 Color (U) Yellow Yellow [facility] Urine cultureOrdered By: Otoniel Lemons on 02-16-2025 Bacteria identified Cx Nom (U) Staphylococcus aureus Abnormal [facility] Urine glucose detectionOrder ed By: Johann Lemons on 02-16-2025 Glucose Ql (U) 1000 mg/dl High Normal [facility] Urine leukocyte esterase det ection by dipstickOrdered By: Johann Lemons on 02-16-2025 Leukocyte esterase Test strip Ql (U) 500 /ul High Negative [facility] Urine pHOrdered By: Johann borjas on 02-16-2025 pH (U) 6.0 [pH] 5.0 - 8.0 [facility] Urine sediment bacteria coun t by microscopy (number/high power field)Ordered By: Johann Lemons on 02-16-2025 Bacteria LM.HPF (Urine sed) [#/Area] 0 /[HPF] None Seen [facility] Urine specific gravity measu rementOrdered By: Johann Lemons on 02-16-2025 Specific gravity (U) [Rel density] 1.010 1.002-1.030 [facility] Urine total bilirubin detect ion by test stripOrdered By: Johann Lemons on 02-16-2025 Urine total bilirubin detection by test strip Negative Negative [facility] Urine urobilinogen measureme ntOrdered By: Johann Lemons on 02-16-2025 Urobilinogen Ql (U) Normal mg/dl Normal [facility] Urobilinogen Ql (U)Ordered B y: Johann Lemons on 02-16-2025 Urine urobilinogen measurement Normal mg/dl Normal [facility] Venous Blood Gason Blood Gas Type GRACY Normal [facility] Comment on above: Performed By: #### L 100.0100, L501.5200, L500.2500 #### [facility] [address] [place], [address] CO2 [Moles/Vol] 34 mmol/L High 23-33 [facility] Comment on above: Performed By: #### L 100.0100, L501.5200, L500.2500 #### [facility] [address] [place], [address] HCO3 (Bld) [Moles/Vol] 33 mmol/L High 22-26 [facility] Comment on above: Performed By: #### L 100.0100, L501.5200, L500.2500 #### [facility] [address] [place], [address] O2 Delivery Dev Not entered Normal [facility] Comment on above: Performed By: #### L 100.0100, L501.5200, L500.2500 #### [facility] [address] [place], [address] SITE Not entered Normal [facility] Comment on above: Performed By: #### L 100.0100, L501.5200, L500.2500 #### [facility] [address] [place], [address] VBG BE 8 mmol/L High -1.0-3.5 [facility] Comment on above: Performed By: #### L 100.0100, L501.5200, L500.2500 #### [facility] [address] [place], [address] VBG pCO2 54.5 mmHg High 41-51 [facility] Comment on above: Performed By: #### L 100.0100, L501.5200, L500.2500 #### [facility] [address] [place], [address] VBG pH 7.39 Normal 7.32-7.42 [facility] Comment on above: Performed By: #### L 100.0100, L501.5200, L500.2500 #### [facility] [address] [place], [address] VBG PO2 46 mmHg High 25-40 [facility] Comment on above: Performed By: #### L 100.0100, L501.5200, L500.2500 #### [facility] [address] [place], [address] VBG SO2 80 High 50-70 [facility] Comment on above: Performed By: #### L 100.0100, L501.5200, L500.2500 #### [facility] [address] [place], [address] Venous blood base excess sarina surementOrdered By: Johann Lemons on 02-16-2025 Base excess Calc (BldV) [Moles/Vol] 8 mmol/L High -1.0-3.5 [facility] Venous blood bicarbonate sarina surementOrdered By: Johann Lemons on 02-16-2025 HCO3 (Bld) [Moles/Vol] 33 mmol/L High 22-26 [facility] Venous blood bicarbonate measurement 33 mmol/L High 22-26 [facility] Venous blood oxygen saturati on measurementOrdered By: Johann Lemons on 02-16-2025 Oxygen saturation in Blood 80 % High 50-70 [facility] Venous blood oxygen saturation measurement 80 % High 50-70 [facility] Venous blood pH measurementO rdered By: Johann Lemons on 02-16-2025 pH (BldV) 7.39 [pH] 7.32-7.42 [facility] Venous blood partial pressur e of carbon dioxide measurementOrdered By: Johann Lemons on 02-16-2025 CO2 (BldV) [Partial pressure] 54.5 mm[Hg] High 41-51 [facility] Venous blood partial pressur e of oxygen measurementOrdered By: Johann Lemons on 02-16-2025 Oxygen (BldV) [Partial pressure] 46 mm[Hg] High 25-40 [facility] White blood cell (WBC) count Ordered By: Johann Lemons on 02-16-2025 WBC (Bld) [#/Vol] 8.7 10*3/uL 4.4-11.0 [facility] White blood cell (WBC) count 8.7 K/mm3 4.4-11.0 [facility] White blood cell countOrdere d By: Johann Lemons on 02-16-2025 White blood cell count >100 SEEN /hpf 0-5 [facility] White blood cell count >100 SEEN /hpf 0-5 [facility] pH (BldV)Ordered By: Joahnn Lemons on 02-16-2025 Venous blood pH measurement 7.39 7.32-7.42 [facility] pH (U)Ordered By: Wilmer on 02-16-2025 Urine pH 6.0 5.0 - 8.0 [facility] Urine Cultureon 12-29-2024 [facility] Staphylococcus aureu s [place] Count >100,000 Staphylococcus aureus: REACTION cefOXitin Susc Islt Doxycycline Islt NASRIN <=0.5 S Clindamycin.induced Susc Islt NEG Gentamicin Islt NASRIN <=0.5 S Linezolid Islt NASRIN 2 S Moxifloxacin Islt NASRIN <=0.25 S Nitrofurantoin Islt NASRIN <=16 S Oxacillin Susc Islt 0.5 S Tetracycline Islt NASRIN <=1 S TMP SMX Islt NASRIN <=10 S Vancomycin Islt NASRIN <=0.5 S Normal [facility] Comment on above: Performed By: #### M 100.2200 #### [facility] [address] [facility] [place], [address] Bacteria LM.HPF (Urine sed) [#/Area]Ordered By: ED PROVIDER on 12-27-2024 Urine sediment bacteria count by microscopy (number/high power field) 3+ /hpf None Seen [facility] Bilirubin Test strip Ql (U)O rdered By: ED PROVIDER on 12-27-2024 Bilirubin Ql (U) Negative Negative [facility] Clarity (U)Ordered By: ED AR OVIDER on 12-27-2024 Urine clarity Turbid Clear [facility] Color (U)Ordered By: ED PROV IDER on 12-27-2024 Urine color determination Yellow Yellow [facility] Emergency Department Summary on 12-27-2024 Emergency Department Summary [facility] Medical Records Department [address] [facility] [place] [address] Emergency Department Summary 12/27/24 MR#: [id number] Acct: [id number] Name: JERALD YODER Rep #: [id number] : 1960 64 From: Panchito Yun PCP: [...] Neck f (more content not included)... Normal [facility] Glucose Ql (U)Ordered By: ED PROVIDER on 12-27-2024 Urine glucose detection 1000 mg/dl High Normal [facility] Ketones Test strip Ql (U)Ord ered By: ED PROVIDER on 12-27-2024 Ketones Ql (U) Negative Negative [facility] Leukocyte esterase Test stri p Ql (U)Ordered By: ED PROVIDER on 12-27-2024 Urine leukocyte esterase detection by dipstick 500 /ul High Negative [facility] Microscopic analysis of urin e for red blood cells (RBC)Ordered By: ED PROVIDER on 12-27-2024 Microscopic analysis of urine for red blood cells (RBC) 25-50 SEEN /hpf 0-5 [facility] Microscopic analysis of urine for red blood cells (RBC) 25-50 SEEN /hpf 0-5 [facility] Mucus LM Ql (Urine sed)Order ed By: ED PROVIDER on 12-27-2024 Mucus Ql (Urine sed) 0 SEEN /hpf [facility] Nitrite Test strip Ql (U)Ord ered By: ED PROVIDER on 12-27-2024 Nitrite Ql (U) Positive High Negative [facility] Urine nitrite test by dipstick Positive High Negative [facility] Protein Test strip Ql (U)Ord ered By: ED PROVIDER on 12-27-2024 Protein Ql (U) 500 mg/dl High Negative [facility] Urine protein assay by test strip, semi-quantitative 500 mg/dl High Negative [facility] Specific gravity (U) [Rel de nsity]Ordered By: ED PROVIDER on 12-27-2024 Urine specific gravity measurement 1.015 1.002-1.030 [facility] Squamous epithelial cells de tection in urine sediment by light microscopyOrdered By: ED PROVIDER on 12-27-2024 Epithelial cells.squamous LM Ql (Urine sed) 0 SEEN /hpf 0-5 [facility] Squamous epithelial cells detection in urine sediment by light microscopy 0 SEEN /hpf [facility] Urinalysis, Completeon 12-27 BACTERIA 3+ /hpf Normal None Seen [facility] Comment on above: Order Comment: CLEAN CATCH Performed By: #### L 100.0100, L501.5200, L500.2500 #### [facility] [address] [place], [address] RBC 25-50 SEEN Normal 0-5 [facility] Comment on above: Order Comment: CLEAN CATCH Performed By: #### L 100.0100, L501.5200, L500.2500 #### [facility] [address] [place], [address] WBC >100 SEEN Normal 0-5 [facility] Comment on above: Order Comment: CLEAN CATCH Result Comment: Micr oscopic field is filled. Other elements may be obscured. Performed By: #### L 100.0100, L501.5200, L500.2500 #### [facility] [address] [place], [address] EPI,SQUAMOUS 0 SEEN Normal [address] [place] [address] Comment on above: Order Comment: CLEAN CATCH Performed By: #### L 100.0100, L501.5200, L500.2500 #### [facility] [address] [place], [address] Mucus Ql (Urine sed) 0 SEEN Normal [facility] Comment on above: Order Comment: CLEAN CATCH Performed By: #### L 100.0100, L501.5200, L500.2500 #### [facility] [address] [place], [address] Urine blood detectionOrdered By: ED PROVIDER on 12-27-2024 Urine blood detection 250 /ul High Negative [facility] Urine clarityOrdered By: ED PROVIDER on 12-27-2024 Clarity (U) Turbid Clear [facility] Urine color determinationOrd ered By: ED PROVIDER on 12-27-2024 Color (U) Yellow Yellow [facility] Urine glucose detectionOrder ed By: ED PROVIDER on 12-27-2024 Glucose Ql (U) 1000 mg/dl High Normal [facility] Urine leukocyte esterase det ection by dipstickOrdered By: ED PROVIDER on 12-27-2024 Leukocyte esterase Test strip Ql (U) 500 /ul High Negative [facility] Urine pHOrdered By: ED PROVI CRISTINA on 12-27-2024 pH (U) 6.0 [pH] 5.0 - 8.0 [facility] Urine sediment bacteria coun t by microscopy (number/high power field)Ordered By: ED PROVIDER on 12-27-2024 Bacteria LM.HPF (Urine sed) [#/Area] 3 /[HPF] None Seen [facility] Urine specific gravity measu rementOrdered By: ED PROVIDER on 12-27-2024 Specific gravity (U) [Rel density] 1.015 1.002-1.030 [facility] Urine total bilirubin detect ion by test stripOrdered By: ED PROVIDER on 12-27-2024 Urine total bilirubin detection by test strip Negative Negative [facility] Urine urobilinogen measureme ntOrdered By: ED PROVIDER on 12-27-2024 Urobilinogen Ql (U) Normal mg/dl Normal [facility] Urobilinogen Ql (U)Ordered B y: ED PROVIDER on 12-27-2024 Urine urobilinogen measurement Normal mg/dl Normal [facility] White blood cell countOrdere d By: ED PROVIDER on 12-27-2024 White blood cell count >100 SEEN /hpf 0-5 [facility] Comment on above: Microscopic field is filled. Other elements may be obscured. White blood cell count >100 SEEN /hpf 0-5 [facility] pH (U)Ordered By: ED PROVIDE R on 12-27-2024 Urine pH 6.0 5.0 - 8.0 [facility] Urine cultureOrdered By: Harley Castillo on 12-26-2024 Bacteria identified Cx Nom (U) Staphylococcus aureus Abnormal [facility] Urine culture Staphylococcus aureus Abnormal [facility] ALP [Catalytic activity/Vol] Ordered By: Avni Cash on 12-20-2024 Serum or plasma alkaline phosphatase measurement 117 U/L 45-117 [facility] ALT [Catalytic activity/Vol] Ordered By: Avni Cash on 12-20-2024 Serum or plasma alanine aminotransferase (ALT) measurement 16 U/L 16-61 [facility] Abdomen/Pelvis W IV Cont ONL Yon 12-20-2024 Abdomen/Pelvis W IV Cont ONLY [facility] [address] [place], [place] [id number] Abdomen/Pelvis W IV Cont ONLY MR#: [id number] Acct: [id number] Name: JERALD YODER Rep #: [id number] : 1960 M 64 From: Beck Quigley MD PCP: Care Physician,No Primary Status: REG ER Study: Abdomen/Pelvis W IV Cont ONLY Date of Exam: Exam# [id number] Ordering Dr: Avni Cash MD PROCEDURE: ABDOMEN/PELVIS [...] use of iterative reconstruction technique). Reading Location: [place] [address] CC: Dr. Avni Cash MD; No 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 Normal [facility] Absolute lymphocyte countOrd ered By: Avni Cash on 12-20-2024 Lymphocytes Auto (Unsp spec) [#/Vol] 1.10 10*3/uL 0.83-4.51 [facility] Absolute neutrophil countOrd ered By: Avni Cash on 12-20-2024 Neutrophils (Bld) [#/Vol] 6.6 10*3/uL 2.0-7.7 [facility] Absolute neutrophil count 6.6 X10^3/uL 2.0-7.7 [facility] Albumin [Mass/Vol]Ordered By : Avni Cash on 12-20-2024 Serum or plasma albumin measurement (mass/volume) 3.4 g/dL 3.2-5.0 [facility] Albumin to globulin ratioOrd ered By: Avni Cash on 12-20-2024 Albumin/Globulin [Mass ratio] 0.8 {ratio} Low 0.9-2.4 [facility] Albumin to globulin ratio 0.8 RATIO Low 0.9-2.4 [facility] Automated lymphocyte count a s percentage of total leukocytesOrdered By: Avni Cash on 12-20-2024 Lymphocytes/100 WBC Auto (Unsp spec) 13.2 % Low 19-41 [facility] Basophil percentageOrdered B y: Avni Cash on 12-20-2024 Basophils/100 WBC (Bld) 0.5 % 0-1 [facility] Basophil percentage 0.5 % 0-1 [facility] Bilirubin Test strip Ql (U)O rdered By: Avni Cash on 12-20-2024 Bilirubin Ql (U) Negative Negative [facility] Bilirubin, totalOrdered By: Avni Cash on 12-20-2024 Bilirubin [Mass/Vol] 0.70 mg/dL 0.20-1.00 [facility] Comment on above: For patients on eltr ombopag therapy, use of Dimension Hubbell TBIL is not recommended. Bilirubin, total 0.70 mg/dL 0.20-1.00 [facility] Blood urea nitrogen (BUN)/cr eatinine ratioOrdered By: Avni Cash on 12-20-2024 Urea nitrogen/Creatinine [Mass ratio] 11.2 mg/mg 08-19 [facility] Blood urea nitrogen (BUN)/creatinine ratio 11.2 RATIO 08-19 [facility] CBC W/Diff, Automatedon 12-02 Absolute Lymph 1.10 X10 3/uL Normal 0.83-4.51 [facility] Comment on above: Performed By: #### L 100.0100, L501.5200, L500.2500 #### [facility] [address] [place] [address], [address] Absolute Neut 6.6 X10 3/uL Normal 2.0-7.7 [facility] Comment on above: Performed By: #### L 100.0100, L501.5200, L500.2500 #### [facility] [address] [place], [address] Basophils/100 WBC (Bld) 0.5 % Normal 0-1 [facility] Comment on above: Performed By: #### L 100.0100, L501.5200, L500.2500 #### [facility] [address] [place], [address] Eosinophils/100 WBC (Bld) 1.7 % Normal 0-5 [facility] Comment on above: Performed By: #### L 100.0100, L501.5200, L500.2500 #### [facility] [address] [place], [address] Erythrocyte distribution width (RBC) [Ratio] 13.9 % Normal 11.6-14.6 [facility] Comment on above: Performed By: #### L 100.0100, L501.5200, L500.2500 #### [facility] [address] [place], [address] Hematocrit (Bld) [Volume fraction] 40.7 % Normal 40-54 [facility] Comment on above: Performed By: #### L 100.0100, L501.5200, L500.2500 #### [facility] [address] [place], [address] Hemoglobin (Bld) [Mass/Vol] 14.4 g/dL Normal 13.0-16.5 [facility] Comment on above: Performed By: #### L 100.0100, L501.5200, L500.2500 #### [facility] [address] [place], [address] IG% 0.800 Normal 0.0-0.9 [facility] Comment on above: Result Comment: IG% - Immature Granulocytes (promyelocytes, myelocytes and metamyelocytes) > 1% indicates that a LEFT SHIFT is Present. Performed By: #### L 100.0100, L501.5200, L500.2500 #### [facility] [address] [place], [address] Lymphocytes/100 WBC (Bld) 13.2 % Low 19-41 [facility] Comment on above: Performed By: #### L 100.0100, L501.5200, L500.2500 #### [facility] [address] [place], [address] MCH (RBC) [Entitic mass] 29.1 pg Normal 27.0-32.0 [facility] Comment on above: Performed By: #### L 100.0100, L501.5200, L500.2500 #### [facility] [address] [place], [address] MCHC (RBC) [Mass/Vol] 35.4 g/dL Normal 32-36 [facility] Comment on above: Performed By: #### L 100.0100, L501.5200, L500.2500 #### [facility] [address] [place], [address] MCV (RBC) [Entitic vol] 82.2 fL Normal 80-94 [facility] Comment on above: Performed By: #### L 100.0100, L501.5200, L500.2500 #### [facility] [address] [place], [address] Monocytes/100 WBC (Bld) 5.3 % Normal 0-10 [facility] Comment on above: Performed By: #### L 100.0100, L501.5200, L500.2500 #### [facility] [address] [place], [address] Neutrophils/100 WBC (Bld) 78.5 % High 47-70 [facility] Comment on above: Performed By: #### L 100.0100, L501.5200, L500.2500 #### [facility] [address] [place], [address] Nucleated RBC (Bld) [#/Vol] 0 10*3/uL Normal 0-5 [facility] Comment on above: Performed By: #### L 100.0100, L501.5200, L500.2500 #### [facility] [address] [place], [address] Platelet mean volume (Bld) [Entitic vol] 9.3 fL Normal 6.2-12.0 [facility] Comment on above: Performed By: #### L 100.0100, L501.5200, L500.2500 #### [facility] [address] [place], [address] Platelets (Bld) [#/Vol] 281 10*3/uL Normal 150-450 [facility] Comment on above: Performed By: #### L 100.0100, L501.5200, L500.2500 #### [facility] [address] [place], [address] RBC (Bld) [#/Vol] 4.95 10*6/uL Normal 4.6-6.2 [facility] Comment on above: Performed By: #### L 100.0100, L501.5200, L500.2500 #### [facility] [address] [place], [address] RDW SD 41.1 fl Normal 35.1-43.9 [facility] Comment on above: Performed By: #### L 100.0100, L501.5200, L500.2500 #### [facility] [address] [place], [address] WBC (Bld) [#/Vol] 8.4 10*3/uL Normal 4.4-11.0 [facility] Comment on above: Performed By: #### L 100.0100, L501.5200, L500.2500 #### [facility] [address] [place], [address] Calcium [Mass/Vol]Ordered By : Avni Cash on 12-20-2024 Serum or plasma calcium measurement (mass/volume) 9.7 mg/dL 8.5-10.1 [facility] Carbon dioxide measurementOr dered By: Avni Cash on 12-20-2024 CO2 [Moles/Vol] 31.0 mmol/L 21.0-32.0 [facility] Carbon dioxide measurement 31.0 mmol/L 21.0-32.0 [facility] Chloride measurementOrdered By: Avni Cash on 12-20-2024 Chloride [Moles/Vol] 99 mmol/L 98-107 [facility] Chloride measurement 99 mmol/L 98-107 [facility] Clarity (U)Ordered By: Avni Cash on 12-20-2024 Urine clarity Clear Clear [facility] Color (U)Ordered By: Avni hauser on 12-20-2024 Urine color determination Yellow Yellow [facility] Comprehensive Metabolic Prof ilon 12-20-2024 Albumin [Mass/Vol] 3.4 g/dL Normal 3.2-5.0 [facility] Comment on above: Performed By: #### L 100.0100, L501.5200, L500.2500 #### [facility] [address] [place], [address] Albumin/Globulin [Mass ratio] 0.8 {ratio} Low 0.9-2.4 [facility] Comment on above: Performed By: #### L 100.0100, L501.5200, L500.2500 #### [facility] [address] [place], [address] ALK P 117 U/L Normal 45-117 [facility] Comment on above: Performed By: #### L 100.0100, L501.5200, L500.2500 #### [facility] [address] [place], [address] ALT [Catalytic activity/Vol] 16 U/L Normal 16-61 [facility] Comment on above: Performed By: #### L 100.0100, L501.5200, L500.2500 #### [facility] [address] [place], [address] AST [Catalytic activity/Vol] 8 U/L Low 15-37 [facility] Comment on above: Performed By: #### L 100.0100, L501.5200, L500.2500 #### [facility] [address] [place], [address] Bilirubin [Mass/Vol] 0.70 mg/dL Normal 0.20-1.00 [facility] Comment on above: Result Comment: For patients on eltrombopag therapy, use of Dimension Hubbell TBIL is not recommended. Performed By: #### L 100.0100, L501.5200, L500.2500 #### [facility] [address] [place], [address] BUN/CRE 11.2 RATIO Normal 10-20 [facility] Comment on above: Performed By: #### L 100.0100, L501.5200, L500.2500 #### [facility] [address] [place], [address] CA,Total 9.7 mg/dL Normal 8.5-10.1 [facility] Comment on above: Performed By: #### L 100.0100, L501.5200, L500.2500 #### [facility] [address] [place], [address] Chloride [Moles/Vol] 99 mmol/L Normal 98-107 [facility] Comment on above: Performed By: #### L 100.0100, L501.5200, L500.2500 #### [facility] [address] [place], [address] CO2 [Moles/Vol] 31.0 mmol/L Normal 21.0-32.0 [facility] Comment on above: Performed By: #### L 100.0100, L501.5200, L500.2500 #### [facility] [address] [place], [address] Creatinine [Mass/Vol] 0.89 mg/dL Normal 0.70-1.30 [facility] Comment on above: Result Comment: The validity of the calculated GFR GFRAA in patients over 70 years has not been determined. Clinical correlation is essential. Performed By: #### L 100.0100, L501.5200, L500.2500 #### [facility] [address] [place], [address] EST GFR - AA 110 mL/min Normal >60 [facility] Comment on above: Result Comment: Afri can [place]ar[place]uan GFR Calc Performed By: #### L 100.0100, L501.5200, L500.2500 #### [facility] [address] [place], [address] GAP 5 Normal 5-15 [facility] Comment on above: Performed By: #### L 100.0100, L501.5200, L500.2500 #### [facility] [address] [place], [address] GFR/1.73 sq M.predicted among non-blacks MDRD (S/P/Bld) [Vol rate/Area] 91 mL/min/{1.73_m2} Normal >60 [facility] Comment on above: Result Comment: Non- GFR Calc Performed By: #### L 100.0100, L501.5200, L500.2500 #### [facility] [address] [place], [address] Globulin (S) [Mass/Vol] 4.1 g/dL Normal 2.2-4.2 [facility] Comment on above: Performed By: #### L 100.0100, L501.5200, L500.2500 #### [facility] [address] [place], [address] Glucose [Mass/Vol] 424 mg/dL High 74-106 [facility] Comment on above: Result Comment: Gluc ose result greater than or equal to 200 mg/dL suggests DIABETES MELLITUS per A.D.A. criteria. Performed By: #### L 100.0100, L501.5200, L500.2500 #### [facility] [address] [place], [address] Potassium [Moles/Vol] 4.3 mmol/L Normal 3.5-5.1 [facility] Comment on above: Performed By: #### L 100.0100, L501.5200, L500.2500 #### [facility] [address] [place], [address] Sodium [Moles/Vol] 135 mmol/L Low 136-145 [facility] Comment on above: Performed By: #### L 100.0100, L501.5200, L500.2500 #### [facility] [address] [place], [address] T PROT 7.5 g/dL Normal 6.4-8.2 [facility] Comment on above: Performed By: #### L 100.0100, L501.5200, L500.2500 #### [facility] [address] [place], [address] Urea nitrogen [Mass/Vol] 10 mg/dL Normal 7-18 [facility] Comment on above: Performed By: #### L 100.0100, L501.5200, L500.2500 #### [facility] [address] [place], [address] Creatinine [Mass/Vol]Ordered By: Avni Cash on 12-20-2024 Serum or plasma creatinine measurement (mass/volume) 0.89 mg/dL 0.70-1.30 [facility] Emergency Department Summary on 12-20-2024 Emergency Department Summary [facility] Medical Records Department [address] [place] [address] Emergency Department Summary 12/20/24 MR#: [id number] Acct: [id number] Name: JERALD YODER Rep #: [id number] : 1960 64 From: Avni Cash MD [...] Genitourinary G (more content not included)... Normal [facility] Eosinophil percentageOrdered By: Avni Cash on 12-20-2024 Eosinophils/100 WBC (Bld) 1.7 % 0-5 [facility] Eosinophil percentage 1.7 % 0-5 [facility] Erythrocyte distribution wid th (RBC) [Ratio]Ordered By: Avni Cash on 12-20-2024 Erythrocyte distribution width ratio 13.9 % 11.6-14.6 [facility] Erythrocyte distribution width standard deviation 41.1 fl 35.1-43.9 [facility] Erythrocyte distribution wid th ratioOrdered By: Avni Cash on 12-20-2024 Erythrocyte distribution width (RBC) [Ratio] 13.9 % 11.6-14.6 [facility] Erythrocyte distribution wid th standard deviationOrdered By: Avni Cash on 12-20-2024 Erythrocyte distribution width (RBC) [Ratio] 41.1 fl 35.1-43.9 [facility] Estimated glomerular filtrat ion rate (GFR) AmericanOrdered By: Avni Cash on 12-20-2024 Estimated glomerular filtration rate (GFR) 110 mL/min >60 [facility] Glomerular filtration rate ( GFR) estimationOrdered By: Avni Cash on 12-20-2024 GFR/1.73 sq M.predicted among non-blacks MDRD (S/P/Bld) [Vol rate/Area] 91 mL/min/{1.73_m2} >60 [facility] Comment on above: Non- GFR Calc Glomerular filtration rate (GFR) estimation 91 mL/min >60 [facility] Glucose Ql (U)Ordered By: Vitor Cash on 12-20-2024 Urine glucose detection 1000 mg/dl High Normal [facility] Glucose measurementOrdered B y: Avni Cash on 12-20-2024 Glucose [Mass/Vol] 424 mg/dL High 74-106 [facility] Comment on above: Glucose result great er than or equal to 200 mg/dLsuggests DIABETES MELLITUS per A.D.A. criteria. Glucose measurement 424 mg/dL High 74-106 [facility] Hematocrit Auto (Bld) [Volum e fraction]Ordered By: Avni Cash on 12-20-2024 Hematocrit (Bld) [Volume fraction] 40.7 % 40-54 [facility] Automated blood hematocrit (percentage) 40.7 % 40-54 [facility] Hemoglobin measurementOrdere d By: Avni Cash on 12-20-2024 Hemoglobin (Bld) [Mass/Vol] 14.4 g/dL 13.0-16.5 [facility] Hemoglobin measurement 14.4 g/dL 13.0-16.5 [facility] Hyaline casts LM.LPF (Urine sed) [#/Area]Ordered By: Avni Cash on 12-20-2024 Hyaline casts (Urine sed) [#/Area] 0 /[LPF] 0-5 [facility] Urine sediment hyaline cast count by microscopy (number/low power field) 0-5 SEEN /lpf 0-5 [facility] Immature granulocytes/100 WB C Auto (Bld)Ordered By: Avni Cash on 12-20-2024 Immature granulocytes/100 WBC (Bld) 0.800 % 0.0-0.9 [facility] Comment on above: IG% - Immature Granu locytes (promyelocytes, myelocytes and metamyelocytes) > 1% indicates that a LEFT SHIFT is Present. Automated immature granulocyte percentage 0.800 % 0.0-0.9 [facility] Ketones Test strip Ql (U)Ord ered By: Avni Cash on 12-20-2024 Ketones Ql (U) Negative Negative [facility] - Chemistry and C hemistry - challengeOrdered By: Avni Cash on 12-20-2024 AST [Catalytic activity/Vol] 8 U/L Low 15-37 [facility] Lipaseon 12-20-2024 Lipase [Catalytic activity/Vol] 13 U/L Low 73-393 [facility] Comment on above: Performed By: #### L 501.080 #### [facility] [address] [place], [address] Lipase measurementOrdered By : Avni Cash on 12-20-2024 Lipase [Catalytic activity/Vol] 13 U/L Low 73-393 [facility] Lipase measurement 13 U/L Low 73-393 [facility] Lymphocytes Auto (Unsp spec) [#/Vol]Ordered By: Avni Cash on 12-20-2024 Absolute lymphocyte count 1.10 X10^3/uL 0.83-4.51 [facility] Lymphocytes/100 WBC Auto (Un sp spec)Ordered By: Avni Cash on 12-20-2024 Automated lymphocyte count as percentage of total leukocytes 13.2 % Low 19-41 [facility] MCV (RBC) [Entitic vol]Order ed By: Avni Cash on 12-20-2024 MCV (mean corpuscular volume) determination 82.2 fL 80-94 [facility] MCV (mean corpuscular volume ) determinationOrdered By: Avni Cash on 12-20-2024 MCV (RBC) [Entitic vol] 82.2 fL 80-94 [facility] Mean corpuscular hemoglobin (MCH) determinationOrdered By: Avni Cash on 12-20-2024 MCH (RBC) [Entitic mass] 29.1 pg 27.0-32.0 [facility] Mean corpuscular hemoglobin (MCH) determination 29.1 pg 27.0-32.0 [facility] Mean corpuscular hemoglobin concentration (MCHC) determinationOrdered By: Avni Cash on 12-20-2024 MCHC (RBC) [Mass/Vol] 35.4 g/dL 32-36 [facility] Mean corpuscular hemoglobin concentration (MCHC) determination 35.4 g/dL -36 [facility] Mean platelet volume determi nationOrdered By: Avni Cash on 12-20-2024 Platelet mean volume (Bld) [Entitic vol] 9.3 fL 6.2-12.0 [facility] Mean platelet volume determination 9.3 fl 6.2-12.0 [facility] Microscopic analysis of urin e for red blood cells (RBC)Ordered By: Avni Cash on 12-20-2024 Microscopic analysis of urine for red blood cells (RBC) 0-5 SEEN /hpf 0-5 [facility] Monocyte percentageOrdered B y: Avni Cash on 12-20-2024 Monocytes/100 WBC (Bld) 5.3 % 0-10 [facility] Monocyte percentage 5.3 % 0-10 [facility] Mucus LM Ql (Urine sed)Order ed By: Avni Cash on 12-20-2024 Mucus Ql (Urine sed) 0 SEEN /hpf [facility] Neutrophil percentageOrdered By: Avni Cash on 12-20-2024 Neutrophils/100 WBC (Bld) 78.5 % High 47-70 [facility] Neutrophil percentage 78.5 % High 47-70 [facility] Nitrite Test strip Ql (U)Ord ered By: Avni Cash on 12-20-2024 Nitrite Ql (U) Negative Negative [facility] No Panel InformationOrdered By: Avni Cash on 12-20-2024 8 U/L Low 15-37 [facility] Nucleated red blood cell per centageOrdered By: Avni Cash on 12-20-2024 Nucleated RBC/100 WBC (Bld) [Ratio] 0 % 0-5 [facility] Nucleated red blood cell percentage 0 % 0-5 [facility] Platelet countOrdered By: Vitor Cash on 12-20-2024 Platelets (Bld) [#/Vol] 281 10*3/uL 150-450 [facility] Platelet count 281 K/mm3 150-450 [facility] Potassium measurementOrdered By: Avni Cash on 12-20-2024 Potassium [Moles/Vol] 4.3 mmol/L 3.5-5.1 [facility] Potassium measurement 4.3 mmol/L 3.5-5.1 [facility] Protein Test strip Ql (U)Ord ered By: Avni Cash on 12-20-2024 Protein Ql (U) Negative Negative [facility] RBC Auto (Bld) [#/Vol]Ordere d By: Avni Cash on 12-20-2024 RBC (Bld) [#/Vol] 4.95 10*6/uL 4.6-6.2 [facility] Automated blood erythrocyte count 4.95 M/mm3 4.6-6.2 [facility] Serum anion gap measurementO rdered By: Avni Cash on 12-20-2024 Anion gap [Moles/Vol] 5 mmol/L 5-15 [facility] Serum anion gap measurement 5 5-15 [facility] Serum globulin measurementOr dered By: Avni Cash on 12-20-2024 Globulin (S) [Mass/Vol] 4.1 g/dL 2.2-4.2 [facility] Serum globulin measurement 4.1 g/dL 2.2-4.2 [facility] Serum or plasma alanine wagoner otransferase (ALT) measurementOrdered By: Avni Cash on 12-20-2024 ALT [Catalytic activity/Vol] 16 U/L 16-61 [facility] Serum or plasma albumin yayo urement (mass/volume)Ordered By: Avni Cash on 12-20-2024 Albumin [Mass/Vol] 3.4 g/dL 3.2-5.0 [facility] Serum or plasma alkaline andrzej sphatase measurementOrdered By: Avni Cash on 12-20-2024 ALP [Catalytic activity/Vol] 117 U/L 45-117 [facility] Serum or plasma calcium yayo urement (mass/volume)Ordered By: Avni Cash on 12-20-2024 Calcium [Mass/Vol] 9.7 mg/dL 8.5-10.1 [facility] Serum or plasma creatinine m easurement (mass/volume)Ordered By: Avni Cash on 12-20-2024 Creatinine [Mass/Vol] 0.89 mg/dL 0.70-1.30 [facility] Comment on above: The validity of the calculated GFR & GFRAA in patients over 70 years has not been determined. Clinical correlation is essential. Serum or plasma urea nitroge n measurement (mass/volume)Ordered By: Avni Cash on 12-20-2024 Urea nitrogen [Mass/Vol] 10 mg/dL 7-18 [facility] Sodium levelOrdered By: Avni Cash on 12-20-2024 Sodium [Moles/Vol] 135 mmol/L Low 136-145 [facility] Sodium level 135 mmol/L Low 136-145 [facility] Specific gravity (U) [Rel de nsity]Ordered By: Avni Cash on 12-20-2024 Urine specific gravity measurement 1.010 1.002-1.030 [facility] Squamous epithelial cells de tection in urine sediment by light microscopyOrdered By: Avni Cash on 12-20-2024 Epithelial cells.squamous LM Ql (Urine sed) 0 SEEN /hpf 0-5 [facility] Squamous epithelial cells detection in urine sediment by light microscopy 0 SEEN /hpf [facility] Total proteinOrdered By: Geovani Cash on 12-20-2024 Protein [Mass/Vol] 7.5 g/dL 6.4-8.2 [facility] Total protein 7.5 g/dL 6.4-8.2 [facility] Urea nitrogen [Mass/Vol]Orde red By: Avni Cash on 12-20-2024 Serum or plasma urea nitrogen measurement (mass/volume) 10 mg/dL 7-18 [facility] Urinalysis, Completeon 12-20 CAST,HYALINE 0-5 SEEN Normal 0-5 [facility] Comment on above: Order Comment: CLEAN CATCH Performed By: #### L 501.080 #### [facility] [address] [place], [address] RBC 0-5 SEEN Normal 0-5 [facility] Comment on above: Order Comment: CLEAN CATCH Performed By: #### L 501.080 #### [facility] [address] [place], [address] WBC 0-5 SEEN Normal 0-5 [facility] Comment on above: Order Comment: CLEAN CATCH Performed By: #### L 501.080 #### [facility] [address] [place], [address] YEAST 1+ /hpf Normal None Seen [facility] Comment on above: Order Comment: CLEAN CATCH Performed By: #### L 501.080 #### [facility] [address] [place], [address] BACTERIA 0 SEEN Normal None Seen [facility] Comment on above: Order Comment: CLEAN CATCH Performed By: #### L 501.080 #### [facility] [address] [place], [address] EPI,SQUAMOUS 0 SEEN Normal 0-5 [facility] Comment on above: Order Comment: CLEAN CATCH Performed By: #### L 501.080 #### [facility] [address] [place], [address] Mucus Ql (Urine sed) 0 SEEN Normal [facility] Comment on above: Order Comment: CLEAN CATCH Performed By: #### L 501.080 #### [facility] [address] [place], [place], [address] Urine blood detectionOrdered By: Avni Cash on 12-20-2024 Urine blood detection 10 /ul High Negative [facility] Urine clarityOrdered By: Geovani Cash on 12-20-2024 Clarity (U) Clear Clear [facility] Urine color determinationOrd ered By: Avni Cash on 12-20-2024 Color (U) Yellow Yellow [facility] Urine glucose detectionOrder ed By: Avni Cash on 12-20-2024 Glucose Ql (U) 1000 mg/dl High Normal [facility] Urine leukocyte esterase det ection by dipstickOrdered By: Avni Cash on 12-20-2024 Leukocyte esterase Test strip Ql (U) Negative Negative [facility] Urine pHOrdered By: Avni jiang on 12-20-2024 pH (U) 5.0 [pH] 5.0 - 8.0 [facility] Urine sediment bacteria coun t by microscopy (number/high power field)Ordered By: Avni Cash on 12-20-2024 Bacteria LM.HPF (Urine sed) [#/Area] 0 /[HPF] None Seen [facility] Urine sediment yeast count b y microscopy (number/high powered field)Ordered By: Avni Cash on 12-20-2024 Yeast LM.HPF (Urine sed) [#/Area] 1 /[HPF] None Seen [facility] Urine specific gravity measu rementOrdered By: Avni Cash on 12-20-2024 Specific gravity (U) [Rel density] 1.010 1.002-1.030 [facility] Urine total bilirubin detect ion by test stripOrdered By: Avni Cash on 12-20-2024 Urine total bilirubin detection by test strip Negative Negative [facility] Urine urobilinogen measureme ntOrdered By: Avni Cash on 12-20-2024 Urobilinogen Ql (U) Normal mg/dl Normal [facility] Urobilinogen Ql (U)Ordered B y: Avni Cash on 12-20-2024 Urine urobilinogen measurement Normal mg/dl Normal [facility] White blood cell (WBC) count Ordered By: Avni Cash on 12-20-2024 WBC (Bld) [#/Vol] 8.4 10*3/uL 4.4-11.0 [facility] White blood cell (WBC) count 8.4 K/mm3 4.4-11.0 [facility] White blood cell countOrdere d By: Avni Cash on 12-20-2024 White blood cell count 0-5 SEEN /hpf 0-5 [facility] White blood cell count 0-5 SEEN /hpf 0-5 [facility] Yeast LM.HPF (Urine sed) [#/ Area]Ordered By: Avni Cash on 12-20-2024 Urine sediment yeast count by microscopy (number/high powered field) 1+ /hpf None Seen [facility] pH (U)Ordered By: Avni pena on 12-20-2024 Urine pH 5.0 5.0 - 8.0 [facility] CNOVon 12-14-2024 CNOV Office Visit (UCWSTR ) JERALD YODER ([id number]) 1960 M Date Time Provider Department 12/14/24 9:30 AM [facility] WSTR [facility] During your visit today, we recorded the following information about you: Temperature Pulse Respiration Blood pressure 97.1 degrees 77/minute 18/minute 105/70 Weight 98.7 kg Ion Alfaro 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 Subjective Jerald Yoder is a 64 year [...] - CETIRIZINE 10 MG TABLET Ion Alfaro 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 Allergies As of Date: 12/14/2024 Noted Allergy Reaction BEE STING 06/22/2011 7 - Swelling BENEDRYL (DIPHENHYDRAMINE) 06/22/2011 7 - Swelling PENICILLINS 06/22/2011 2 - Rash Date Reviewed: 12/14/2024 Reviewed by: Ion Alfaro, SANDRA.FRAME PULLEY MORTISING MACHINE OPERATOR - Fully Assessed Reason for Visit: Ear Problem [38] Cmt: Bilateral clogged x1 day Primary Visit Diagnosis:Eustachian tube dysfunction, bilateral [H69.93] Order(s):fluticasone (FLONASE ALLERGY RELIEF) 50 mcg/actuation nasal sprayUse 1 Doswell in each nostril once daily.Disp: 9.9 mLRfl: 0 cetirizine (ZYRTEC) 10 mg tabletTake 1 tablet by mouth once daily for 14 days.Disp: 14 tabletRfl: 0 Prescriptions as of 12/14/2024 - fluticasone (FLONASE ALLERGY RELIEF) 50 mcg/actuation nasal spray Use 1 Doswell in each nostril once daily. - cetirizine [...] Dx: 250.02. (more content not included)... Normal [facility] ALP [Catalytic activity/Vol] Ordered By: Barry Mathew on 12-08-2024 Serum or plasma alkaline phosphatase measurement 98 U/L 45-117 [facility] ALT [Catalytic activity/Vol] Ordered By: Barry Mathew on 12-08-2024 Serum or plasma alanine aminotransferase (ALT) measurement 16 U/L 16-61 [facility] Absolute lymphocyte countOrd ered By: Barry Mathew on 12-08-2024 Lymphocytes Auto (Unsp spec) [#/Vol] 1.25 10*3/uL 0.83-4.51 [facility] Absolute neutrophil countOrd ered By: Barry Mathew on 12-08-2024 Neutrophils (Bld) [#/Vol] 4.1 10*3/uL 2.0-7.7 [facility] Absolute neutrophil count 4.1 X10^3/uL 2.0-7.7 [facility] Albumin [Mass/Vol]Ordered By : Barry Mathew on 12-08-2024 Serum or plasma albumin measurement (mass/volume) 3.5 g/dL 3.2-5.0 [facility] Albumin to globulin ratioOrd ered By: Barry Mathew on 12-08-2024 Albumin/Globulin [Mass ratio] 0.9 {ratio} 0.9-2.4 [facility] Albumin to globulin ratio 0.9 RATIO 0.9-2.4 [facility] Automated lymphocyte count a s percentage of total leukocytesOrdered By: Barry Mathew on 12-08-2024 Lymphocytes/100 WBC Auto (Unsp spec) 20.7 % 19-41 [facility] Bacteria LM.HPF (Urine sed) [#/Area]Ordered By: Barry Quincy on 12-08-2024 Urine sediment bacteria count by microscopy (number/high power field) 1+ /hpf None Seen [facility] Basophil percentageOrdered B y: Barry Ellisevan on 12-08-2024 Basophils/100 WBC (Bld) 0.7 % 0-1 [facility] Basophil percentage 0.7 % 0-1 [facility] Bilirubin Test strip Ql (U)O rdered By: Barry Mathew on 12-08-2024 Bilirubin Ql (U) Negative Negative [facility] Bilirubin, totalOrdered By: Barry Mathew on 12-08-2024 Bilirubin [Mass/Vol] 0.40 mg/dL 0.20-1.00 [facility] Comment on above: For patients on eltr ombopag therapy, use of Dimension Hubbell TBIL is not recommended. Bilirubin, total 0.40 mg/dL 0.20-1.00 [facility] Blood urea nitrogen (BUN)/cr eatinine ratioOrdered By: Barry Mathew on 12-08-2024 Urea nitrogen/Creatinine [Mass ratio] 14.2 mg/mg 10- [facility] Blood urea nitrogen (BUN)/creatinine ratio 14.2 RATIO 08-19 [facility] CBC W/Diff, Automatedon Absolute Lymph 1.25 X10 3/uL Normal 0.83-4.51 [facility] Comment on above: Performed By: #### L 100.0100, L501.5200, L500.2500 #### [facility] [address] [place], [address] Absolute Neut 4.1 X10 3/uL Normal 2.0-7.7 [facility] Comment on above: Performed By: #### L 100.0100, L501.5200, L500.2500 #### [facility] [address] [place], [address] Basophils/100 WBC (Bld) 0.7 % Normal 0-1 [facility] Comment on above: Performed By: #### L 100.0100, L501.5200, L500.2500 #### [facility] [address] [place], [address] Eosinophils/100 WBC (Bld) 3.8 % Normal 0-5 [facility] Comment on above: Performed By: #### L 100.0100, L501.5200, L500.2500 #### [facility] [address] [place], [address] Erythrocyte distribution width (RBC) [Ratio] 14.0 % Normal 11.6-14.6 [facility] Comment on above: Performed By: #### L 100.0100, L501.5200, L500.2500 #### [facility] [address] [place], [address] Hematocrit (Bld) [Volume fraction] 38.6 % Low 40-54 [facility] Comment on above: Performed By: #### L 100.0100, L501.5200, L500.2500 #### [facility] [address] [place], [address] Hemoglobin (Bld) [Mass/Vol] 13.6 g/dL Normal 13.0-16.5 [facility] Comment on above: Performed By: #### L 100.0100, L501.5200, L500.2500 #### [facility] [address] [place], [address] IG% 0.500 Normal 0.0-0.9 [facility] Comment on above: Result Comment: IG% - Immature Granulocytes (promyelocytes, myelocytes and metamyelocytes) > 1% indicates that a LEFT SHIFT is Present. Performed By: #### L 100.0100, L501.5200, L500.2500 #### [facility] [address] [place], [address] Lymphocytes/100 WBC (Bld) 20.7 % Normal 19-41 [facility] Comment on above: Performed By: #### L 100.0100, L501.5200, L500.2500 #### [facility] [address] [place], [address] MCH (RBC) [Entitic mass] 28.5 pg Normal 27.0-32.0 [facility] Comment on above: Performed By: #### L 100.0100, L501.5200, L500.2500 #### [facility] [address] [place], [address] MCHC (RBC) [Mass/Vol] 35.2 g/dL Normal 32-36 [facility] Comment on above: Performed By: #### L 100.0100, L501.5200, L500.2500 #### [facility] [address] [place], [address] MCV (RBC) [Entitic vol] 80.9 fL Normal 80-94 [facility] Comment on above: Performed By: #### L 100.0100, L501.5200, L500.2500 #### [facility] [address] [place], [address] Monocytes/100 WBC (Bld) 7.1 % Normal 0-10 [facility] Comment on above: Performed By: #### L 100.0100, L501.5200, L500.2500 #### [facility] [address] [place], [address] Neutrophils/100 WBC (Bld) 67.2 % Normal 47-70 [facility] Comment on above: Performed By: #### L 100.0100, L501.5200, L500.2500 #### [facility] [address] [place], [address] Nucleated RBC (Bld) [#/Vol] 0 10*3/uL Normal 0-5 [facility] Comment on above: Performed By: #### L 100.0100, L501.5200, L500.2500 #### [facility] [address] [place], [address] Platelet mean volume (Bld) [Entitic vol] 8.9 fL Normal 6.2-12.0 [facility] Comment on above: Performed By: #### L 100.0100, L501.5200, L500.2500 #### [facility] [address] [place], [address] Platelets (Bld) [#/Vol] 226 10*3/uL Normal 150-450 [facility] Comment on above: Performed By: #### L 100.0100, L501.5200, L500.2500 #### [facility] [address] [place], [address] RBC (Bld) [#/Vol] 4.77 10*6/uL Normal 4.6-6.2 [facility] Comment on above: Performed By: #### L 100.0100, L501.5200, L500.2500 #### [facility] [address] [place], [address] RDW SD 40.5 fl Normal 35.1-43.9 [facility] Comment on above: Performed By: #### L 100.0100, L501.5200, L500.2500 #### [facility] [address] [place], [address] WBC (Bld) [#/Vol] 6.0 10*3/uL Normal 4.4-11.0 [facility] Comment on above: Performed By: #### L 100.0100, L501.5200, L500.2500 #### [facility] [address] [place], [address] Calcium [Mass/Vol]Ordered By : Barry Mathew on 12-08-2024 Serum or plasma calcium measurement (mass/volume) 9.0 mg/dL 8.5-10.1 [facility] Carbon dioxide measurementOr dered By: Barry Mathew on 12-08-2024 CO2 [Moles/Vol] 30.0 mmol/L 21.0-32.0 [facility] Carbon dioxide measurement 30.0 mmol/L 21.0-32.0 [facility] Chloride measurementOrdered By: Barry Mathew on 12-08-2024 Chloride [Moles/Vol] 100 mmol/L 98-107 [facility] Chloride measurement 100 mmol/L 98-107 [facility] Clarity (U)Ordered By: Barry Mathew on 12-08-2024 Urine clarity Clear Clear [facility] Color (U)Ordered By: Barry gordon on 12-08-2024 Urine color determination Yellow Yellow [facility] Comprehensive Metabolic Prof ilon 12-08-2024 Albumin [Mass/Vol] 3.5 g/dL Normal 3.2-5.0 [facility] Comment on above: Performed By: #### L 100.0100, L501.5200, L500.2500 #### [facility] [address] [place], [address] Albumin/Globulin [Mass ratio] 0.9 {ratio} Normal 0.9-2.4 [facility] Comment on above: Performed By: #### L 100.0100, L501.5200, L500.2500 #### [facility] [address] [place], [address] ALK P 98 U/L Normal 45-117 [facility] Comment on above: Performed By: #### L 100.0100, L501.5200, L500.2500 #### [facility] [address] [place], [address] ALT [Catalytic activity/Vol] 16 U/L Normal 16-61 [facility] Comment on above: Performed By: #### L 100.0100, L501.5200, L500.2500 #### [facility] [address] [place], [address] AST [Catalytic activity/Vol] 10 U/L Low 15-37 [facility] Comment on above: Performed By: #### L 100.0100, L501.5200, L500.2500 #### [facility] [address] [place], [address] Bilirubin [Mass/Vol] 0.40 mg/dL Normal 0.20-1.00 [facility] Comment on above: Result Comment: For patients on eltrombopag therapy, use of Dimension Hubbell TBIL is not recommended. Performed By: #### L 100.0100, L501.5200, L500.2500 #### [facility] [address] [place], [address] BUN/CRE 14.2 RATIO Normal 10-20 [facility] Comment on above: Performed By: #### L 100.0100, L501.5200, L500.2500 #### [facility] [address] [place], [address] CA,Total 9.0 mg/dL Normal 8.5-10.1 [facility] Comment on above: Performed By: #### L 100.0100, L501.5200, L500.2500 #### [facility] [address] [place], [address] Chloride [Moles/Vol] 100 mmol/L Normal 98-107 [facility] Comment on above: Performed By: #### L 100.0100, L501.5200, L500.2500 #### [facility] [address] [place], [address] CO2 [Moles/Vol] 30.0 mmol/L Normal 21.0-32.0 [facility] Comment on above: Performed By: #### L 100.0100, L501.5200, L500.2500 #### [facility] [address] [place], [address] Creatinine [Mass/Vol] 0.85 mg/dL Normal 0.70-1.30 [facility] Comment on above: Result Comment: The validity of the calculated GFR GFRAA in patients over 70 years has not been determined. Clinical correlation is essential. Performed By: #### L 100.0100, L501.5200, L500.2500 #### [facility] [address] [place], [address] ECRCL 110.65 ml/min Normal [facility] Comment on above: Performed By: #### L 100.0100, L501.5200, L500.2500 #### [facility] [address] [place], [address] EST GFR - AA 117 mL/min Normal >60 [facility] Comment on above: Result Comment: Afri can [place] GFR Calc Performed By: #### L 100.0100, L501.5200, L500.2500 #### [facility] [address] [place], [address] GAP 6 Normal 5-15 [facility] Comment on above: Performed By: #### L 100.0100, L501.5200, L500.2500 #### [facility] [address] [place], [address] GFR/1.73 sq M.predicted among non-blacks MDRD (S/P/Bld) [Vol rate/Area] 97 mL/min/{1.73_m2} Normal >60 [facility] Comment on above: Result Comment: Non- GFR Calc Performed By: #### L 100.0100, L501.5200, L500.2500 #### [facility] [address] [place], [address] Globulin (S) [Mass/Vol] 3.8 g/dL Normal 2.2-4.2 [facility] Comment on above: Performed By: #### L 100.0100, L501.5200, L500.2500 #### [facility] [address] [place], [address] Glucose [Mass/Vol] 395 mg/dL High 74-106 [facility] Comment on above: Result Comment: Gluc ose result greater than or equal to 200 mg/dL suggests DIABETES MELLITUS per A.D.A. criteria. Performed By: #### L 100.0100, L501.5200, L500.2500 #### [facility] [address] [place], [address] Potassium [Moles/Vol] 3.9 mmol/L Normal 3.5-5.1 [facility] Comment on above: Performed By: #### L 100.0100, L501.5200, L500.2500 #### [facility] [address] [place], [address] Sodium [Moles/Vol] 136 mmol/L Normal 136-145 [facility] Comment on above: Performed By: #### L 100.0100, L501.5200, L500.2500 #### [facility] [address] [place], [address] T PROT 7.3 g/dL Normal 6.4-8.2 [facility] Comment on above: Performed By: #### L 100.0100, L501.5200, L500.2500 #### [facility] [address] [place], [address] Urea nitrogen [Mass/Vol] 12 mg/dL Normal 7-18 [facility] Comment on above: Performed By: #### L 100.0100, L501.5200, L500.2500 #### [facility] [address] [place], [address] Creatinine [Mass/Vol]Ordered By: Barry Mathew on 12-08-2024 Serum or plasma creatinine measurement (mass/volume) 0.85 mg/dL 0.70-1.30 [facility] Emergency Department Summary on 12-08-2024 Emergency Department Summary [facility] Medical Records Department [address] [place] [address] Emergency Department Summary 12/08/24 MR#: [id number] Acct: [id number] Name: JERALD YODER Rep #: [id number] : 1960 64 From: Barry Mathew MD [...] 245. No other exacerbating or alleviating factors. [facility] Medical History Partial traumatic amputation of [...] 86 Respir (more content not included)... Normal [facility] Eosinophil percentageOrdered By: Barry Mathew on 12-08-2024 Eosinophils/100 WBC (Bld) 3.8 % 0-5 [facility] Eosinophil percentage 3.8 % 0-5 [facility] Epithelial cells.squamous LM Ql (Urine sed)Ordered By: Barry Mathew on 12-08-2024 Squamous epithelial cells detection in urine sediment by light microscopy 0-5 SEEN /hpf 0-5 [facility] Erythrocyte distribution wid th (RBC) [Ratio]Ordered By: Barry Mathew on 12-08-2024 Erythrocyte distribution width ratio 14.0 % 11.6-14.6 [facility] Erythrocyte distribution width standard deviation 40.5 fl 35.1-43.9 [facility] Erythrocyte distribution wid th ratioOrdered By: Barry Mathew on 12-08-2024 Erythrocyte distribution width (RBC) [Ratio] 14.0 % 11.6-14.6 [facility] Erythrocyte distribution wid th standard deviationOrdered By: Barry Mathew on 12-08-2024 Erythrocyte distribution width (RBC) [Ratio] 40.5 fl 35.1-43.9 [facility] Estimated glomerular filtrat ion rate (GFR) AmericanOrdered By: Barry Mathew on 12-08-2024 Estimated glomerular filtration rate (GFR) 117 mL/min >60 [facility] Estimation of creatinine edinson aranceOrdered By: Barry Mathew on 12-08-2024 Estimation of creatinine clearance 110.65 ml/min [facility] Glomerular filtration rate ( GFR) estimationOrdered By: Barry Mathew on 12-08-2024 GFR/1.73 sq M.predicted among non-blacks MDRD (S/P/Bld) [Vol rate/Area] 97 mL/min/{1.73_m2} >60 [facility] Comment on above: Non- GFR Calc Glomerular filtration rate (GFR) estimation 97 mL/min >60 [facility] Glucose Ql (U)Ordered By: Franco Mathew on 12-08-2024 Urine glucose detection 1000 mg/dl High Normal [facility] Glucose measurementOrdered B y: Barry Mathew on 12-08-2024 Glucose [Mass/Vol] 395 mg/dL High 74-106 [facility] Comment on above: Glucose result great er than or equal to 200 mg/dLsuggests DIABETES MELLITUS per A.D.A. criteria. Glucose measurement 395 mg/dL High 74-106 [facility] Hematocrit Auto (Bld) [Volum e fraction]Ordered By: Barry Mathew on 12-08-2024 Hematocrit (Bld) [Volume fraction] 38.6 % Low 40-54 [facility] Automated blood hematocrit (percentage) 38.6 % Low 40-54 [facility] Hemoglobin measurementOrdere d By: Barry Mathew on 12-08-2024 Hemoglobin (Bld) [Mass/Vol] 13.6 g/dL 13.0-16.5 [facility] Hemoglobin measurement 13.6 g/dL 13.0-16.5 [facility] Immature granulocytes/100 WB C Auto (Bld)Ordered By: Barry Mathew on 12-08-2024 Immature granulocytes/100 WBC (Bld) 0.500 % 0.0-0.9 [facility] Comment on above: IG% - Immature Granu locytes (promyelocytes, myelocytes and metamyelocytes) > 1% indicates that a LEFT SHIFT is Present. Automated immature granulocyte percentage 0.500 % 0.0-0.9 [facility] Influenza virus A and B and SARS-CoV-2 (COVID-19) and Respiratory syncytial virus RNAOrdered By: Barry Mathew on 12-08-2024 SARS-CoV-2 (COVID-19) RNA IOANA+probe Ql (Unsp spec) [facility] Ketones Test strip Ql (U)Ord ered By: Barry Mathew on 12-08-2024 Ketones Ql (U) Negative Negative [facility] - Chemistry and C hemistry - challengeOrdered By: Barry Mathew on 12-08-2024 AST [Catalytic activity/Vol] 10 U/L Low 15-37 [facility] Lymphocytes Auto (Unsp spec) [#/Vol]Ordered By: Barry Mathew on 12-08-2024 Absolute lymphocyte count 1.25 X10^3/uL 0.83-4.51 [facility] Lymphocytes/100 WBC Auto (Un sp spec)Ordered By: Barry Mathew on 12-08-2024 Automated lymphocyte count as percentage of total leukocytes 20.7 % 19-41 [facility] M100.678on 12-08-2024 M100.678 Pending SARS-CoV-2 (COVID 19) Negative INFLUENZA A Negative INFLUENZA B Negative RSV PCR Negative Normal [facility] Comment on above: Performed By: #### M 100.2200 #### [facility] [address] [place], [place] [address], [address] MCV (RBC) [Entitic vol]Order ed By: Barry Mathew on 12-08-2024 MCV (mean corpuscular volume) determination 80.9 fL 80-94 [facility] MCV (mean corpuscular volume ) determinationOrdered By: Barry Mathew on 12-08-2024 MCV (RBC) [Entitic vol] 80.9 fL 80-94 [facility] Mean corpuscular hemoglobin (MCH) determinationOrdered By: Barry Mathew on 12-08-2024 MCH (RBC) [Entitic mass] 28.5 pg 27.0-32.0 [facility] Mean corpuscular hemoglobin (MCH) determination 28.5 pg 27.0-32.0 [facility] Mean corpuscular hemoglobin concentration (MCHC) determinationOrdered By: Barry Mathew on 12-08-2024 MCHC (RBC) [Mass/Vol] 35.2 g/dL 32-36 [facility] Mean corpuscular hemoglobin concentration (MCHC) determination 35.2 g/dL -36 [facility] Mean platelet volume determi nationOrdered By: Barry Mathew on 12-08-2024 Platelet mean volume (Bld) [Entitic vol] 8.9 fL 6.2-12.0 [facility] Mean platelet volume determination 8.9 fl 6.2-12.0 [facility] Microscopic analysis of urin e for red blood cells (RBC)Ordered By: Barry Mathew on 12-08-2024 Microscopic analysis of urine for red blood cells (RBC) 0 SEEN /hpf 0-5 [facility] Monocyte percentageOrdered B y: Barry Mathew on 12-08-2024 Monocytes/100 WBC (Bld) 7.1 % 0-10 [facility] Monocyte percentage 7.1 % 0-10 [facility] Mucus LM Ql (Urine sed)Order ed By: Barry Mathew on 12-08-2024 Mucus Ql (Urine sed) 0 SEEN /hpf [facility] Neutrophil percentageOrdered By: Barry Mathew on 12-08-2024 Neutrophils/100 WBC (Bld) 67.2 % 47-70 [facility] Neutrophil percentage 67.2 % 47-70 [facility] Nitrite Test strip Ql (U)Ord ered By: Barry Mathew on 12-08-2024 Nitrite Ql (U) Negative Negative [facility] No Panel InformationOrdered By: Barry Mathew on 12-08-2024 10 U/L Low 15-37 [facility] Nucleated red blood cell per centageOrdered By: Barry Mathew on 12-08-2024 Nucleated RBC/100 WBC (Bld) [Ratio] 0 % 0-5 [facility] Nucleated red blood cell percentage 0 % 0-5 [facility] Platelet countOrdered By: Franco Mathew on 12-08-2024 Platelets (Bld) [#/Vol] 226 10*3/uL 150-450 [facility] Platelet count 226 K/mm3 150-450 [facility] Potassium measurementOrdered By: Barry Mathew on 12-08-2024 Potassium [Moles/Vol] 3.9 mmol/L 3.5-5.1 [facility] Potassium measurement 3.9 mmol/L 3.5-5.1 [facility] Protein Test strip Ql (U)Ord ered By: Barry Mathew on 12-08-2024 Protein Ql (U) Negative Negative [facility] RBC Auto (Bld) [#/Vol]Ordere d By: Barry Mathew on 12-08-2024 RBC (Bld) [#/Vol] 4.77 10*6/uL 4.6-6.2 [facility] Automated blood erythrocyte count 4.77 M/mm3 4.6-6.2 [facility] Serum anion gap measurementO rdered By: Barry Mathew on 12-08-2024 Anion gap [Moles/Vol] 6 mmol/L 5-15 [facility] Serum anion gap measurement 6 5-15 [facility] Serum globulin measurementOr dered By: Barry Mathew on 12-08-2024 Globulin (S) [Mass/Vol] 3.8 g/dL 2.2-4.2 [facility] Serum globulin measurement 3.8 g/dL 2.2-4.2 [facility] Serum or plasma alanine wagoner otransferase (ALT) measurementOrdered By: Barry Mathew on 12-08-2024 ALT [Catalytic activity/Vol] 16 U/L 16-61 [facility] Serum or plasma albumin yayo urement (mass/volume)Ordered By: Barry Mathew on 12-08-2024 Albumin [Mass/Vol] 3.5 g/dL 3.2-5.0 [facility] Serum or plasma alkaline andrzej sphatase measurementOrdered By: Barry Mathew on 12-08-2024 ALP [Catalytic activity/Vol] 98 U/L 45-117 [facility] Serum or plasma calcium yayo urement (mass/volume)Ordered By: Barry Mathew on 12-08-2024 Calcium [Mass/Vol] 9.0 mg/dL 8.5-10.1 [facility] Serum or plasma creatinine m easurement (mass/volume)Ordered By: Barry Mathew on 12-08-2024 Creatinine [Mass/Vol] 0.85 mg/dL 0.70-1.30 [facility] Comment on above: The validity of the calculated GFR & GFRAA in patients over 70 years has not been determined. Clinical correlation is essential. Serum or plasma urea nitroge n measurement (mass/volume)Ordered By: Barry Mathew on 12-08-2024 Urea nitrogen [Mass/Vol] 12 mg/dL - [facility] Sodium levelOrdered By: Barry Mathew on 12-08-2024 Sodium [Moles/Vol] 136 mmol/L 136-145 [facility] Sodium level 136 mmol/L 136-145 [facility] Specific gravity (U) [Rel de nsity]Ordered By: Barry Mathew on 12-08-2024 Urine specific gravity measurement 1.010 1.002-1.030 [facility] Squamous epithelial cells de tection in urine sediment by light microscopyOrdered By: Barry Mathew on 12-08-2024 Epithelial cells.squamous LM Ql (Urine sed) 0-5 SEEN /hpf 0-5 [facility] Total proteinOrdered By: Silva Mathew on 12-08-2024 Protein [Mass/Vol] 7.3 g/dL 6.4-8.2 [facility] Total protein 7.3 g/dL 6.4-8.2 [facility] Urea nitrogen [Mass/Vol]Orde red By: Barry Mathew on 12-08-2024 Serum or plasma urea nitrogen measurement (mass/volume) 12 mg/dL 05-17 [facility] Urinalysis, Completeon 12-08 BACTERIA 1+ /hpf Normal None Seen [facility] Comment on above: Order Comment: NO CTOR TO SPECIFY Performed By: #### M 100.2200 #### [facility] [address] [place], [place], [id number] EPI,SQUAMOUS 0-5 SEEN Normal 0-5 [facility] Comment on above: Order Comment: NO CTOR TO SPECIFY Performed By: #### M 100.2200 #### [facility] [address] [place], [address] RBC 0 SEEN Normal 0-5 [facility] Comment on above: Order Comment: NO CTOR TO SPECIFY Performed By: #### M 100.2200 #### [facility] [address] [place], [address] Mucus Ql (Urine sed) 0 SEEN Normal [facility] Comment on above: Order Comment: NO CTOR TO SPECIFY Performed By: #### M 100.2200 #### [facility] [address] [place], [address] WBC 0 SEEN Normal 0-5 [facility] Comment on above: Order Comment: NO CTOR TO SPECIFY Performed By: #### M 100.2200 #### [facility] [address] [place], [address] Urine clarityOrdered By: Silva Mathew on 12-08-2024 Clarity (U) Clear Clear [facility] Urine color determinationOrd ered By: Barry Mathew on 12-08-2024 Color (U) Yellow Yellow [facility] Urine glucose detectionOrder ed By: Barry Mathew on 12-08-2024 Glucose Ql (U) 1000 mg/dl High Normal [facility] Urine leukocyte esterase det ection by dipstickOrdered By: Barry Mathew on 12-08-2024 Leukocyte esterase Test strip Ql (U) Negative Negative [facility] Urine pHOrdered By: Barry otoole on 12-08-2024 pH (U) 6.0 [pH] 5.0 - 8.0 [facility] Urine sediment bacteria coun t by microscopy (number/high power field)Ordered By: Barry Mathew on 12-08-2024 Bacteria LM.HPF (Urine sed) [#/Area] 1 /[HPF] None Seen [facility] Urine specific gravity measu rementOrdered By: Barry Mathew on 12-08-2024 Specific gravity (U) [Rel density] 1.010 1.002-1.030 [facility] Urine total bilirubin detect ion by test stripOrdered By: Barry Mathew on 12-08-2024 Urine total bilirubin detection by test strip Negative Negative [facility] Urine urobilinogen measureme ntOrdered By: Barry Mathew on 12-08-2024 Urobilinogen Ql (U) Normal mg/dl Normal [facility] Urobilinogen Ql (U)Ordered B y: Barry Mathew on 12-08-2024 Urine urobilinogen measurement Normal mg/dl Normal [facility] White blood cell (WBC) count Ordered By: Barry Mathew on 12-08-2024 WBC (Bld) [#/Vol] 6.0 10*3/uL 4.4-11.0 [facility] White blood cell (WBC) count 6.0 K/mm3 4.4-11.0 [facility] White blood cell countOrdere d By: Barry Mathew on 12-08-2024 White blood cell count 0 SEEN /hpf 0-5 [facility] White blood cell count 0 SEEN /hpf [facility] pH (U)Ordered By: Barry garcia on 12-08-2024 Urine pH 6.0 5.0 - 8.0 [facility] ALP [Catalytic activity/Vol] Ordered By: Pedro Krishnan on 11-27-2024 Serum or plasma alkaline phosphatase measurement 107 U/L 45-117 [facility] ALT [Catalytic activity/Vol] Ordered By: Pedro Krishnan on 11-27-2024 Serum or plasma alanine aminotransferase (ALT) measurement 16 U/L 16-61 [facility] Absolute lymphocyte countOrd ered By: Pedro Krishnan on 11-27-2024 Lymphocytes Auto (Unsp spec) [#/Vol] 1.51 10*3/uL 0.83-4.51 [facility] Absolute neutrophil countOrd ered By: Pedro Krishnan on 11-27-2024 Neutrophils (Bld) [#/Vol] 6.6 10*3/uL 2.0-7.7 [facility] Absolute neutrophil count 6.6 X10^3/uL 2.0-7.7 [facility] Albumin [Mass/Vol]Ordered By : Pedro Krishnan on 11-27-2024 Serum or plasma albumin measurement (mass/volume) 3.6 g/dL 3.2-5.0 [facility] Albumin to globulin ratioOrd ered By: Pedro Krishnan on 11-27-2024 Albumin/Globulin [Mass ratio] 1.0 {ratio} 0.9-2.4 [facility] Albumin to globulin ratio 1.0 RATIO 0.9-2.4 [facility] Automated lymphocyte count a s percentage of total leukocytesOrdered By: Pedro Krishnan on 11-27-2024 Lymphocytes/100 WBC Auto (Unsp spec) 16.8 % Low 19-41 [facility] Bacteria LM.HPF (Urine sed) [#/Area]Ordered By: Pedro Krishnan on 11-27-2024 Urine sediment bacteria count by microscopy (number/high power field) RARE /hpf None Seen [facility] Basophil percentageOrdered B y: Pedro Krishnan on 11-27-2024 Basophils/100 WBC (Bld) 0.7 % 0-1 [facility] Basophil percentage 0.7 % 0-1 [facility] Bilirubin Test strip Ql (U)O rdered By: Pedro Krishnan on 11-27-2024 Bilirubin Ql (U) Negative Negative [facility] Bilirubin, totalOrdered By: Pedro Krishnan on 11-27-2024 Bilirubin [Mass/Vol] 0.40 mg/dL 0.20-1.00 [facility] Comment on above: For patients on eltr ombopag therapy, use of Dimension Hubbell TBIL is not recommended. Bilirubin, total 0.40 mg/dL 0.20-1.00 [facility] Blood urea nitrogen (BUN)/cr eatinine ratioOrdered By: Pedro Krishnan on 11-27-2024 Urea nitrogen/Creatinine [Mass ratio] 12.7 mg/mg 10- [facility] Blood urea nitrogen (BUN)/creatinine ratio 12.7 RATIO 08-19 [facility] CBC W/Diff, Automatedon 11-01 Absolute Lymph 1.51 X10 3/uL Normal 0.83-4.51 [facility] Comment on above: Performed By: #### L 100.0100, L501.5200, L500.2500 #### [facility] [address] [place], [place], [id number] Absolute Neut 6.6 X10 3/uL Normal 2.0-7.7 [facility] Comment on above: Performed By: #### L 100.0100, L501.5200, L500.2500 #### [facility] [address] [place], [address] Basophils/100 WBC (Bld) 0.7 % Normal 0-1 [facility] Comment on above: Performed By: #### L 100.0100, L501.5200, L500.2500 #### [facility] [address] [place], [address] Eosinophils/100 WBC (Bld) 2.8 % Normal 0-5 [facility] Comment on above: Performed By: #### L 100.0100, L501.5200, L500.2500 #### [facility] [address] [place], [address] Erythrocyte distribution width (RBC) [Ratio] 14.2 % Normal 11.6-14.6 [facility] Comment on above: Performed By: #### L 100.0100, L501.5200, L500.2500 #### [facility] [address] [place], [address] Hematocrit (Bld) [Volume fraction] 41.1 % Normal 40-54 [facility] Comment on above: Performed By: #### L 100.0100, L501.5200, L500.2500 #### [facility] [address] [place], [address] Hemoglobin (Bld) [Mass/Vol] 14.2 g/dL Normal 13.0-16.5 [facility] Comment on above: Performed By: #### L 100.0100, L501.5200, L500.2500 #### [facility] [address] [place], [address] IG% 0.300 Normal 0.0-0.9 [facility] Comment on above: Result Comment: IG% - Immature Granulocytes (promyelocytes, myelocytes and metamyelocytes) > 1% indicates that a LEFT SHIFT is Present. Performed By: #### L 100.0100, L501.5200, L500.2500 #### [facility] [address] [place], [address] Lymphocytes/100 WBC (Bld) 16.8 % Low 19-41 [facility] Comment on above: Performed By: #### L 100.0100, L501.5200, L500.2500 #### [facility] [address] [place], [address] MCH (RBC) [Entitic mass] 28.2 pg Normal 27.0-32.0 [facility] Comment on above: Performed By: #### L 100.0100, L501.5200, L500.2500 #### [facility] [address] [place], [address] MCHC (RBC) [Mass/Vol] 34.5 g/dL Normal 32-36 [facility] Comment on above: Performed By: #### L 100.0100, L501.5200, L500.2500 #### [facility] [address] [place], [address] MCV (RBC) [Entitic vol] 81.7 fL Normal 80-94 [facility] Comment on above: Performed By: #### L 100.0100, L501.5200, L500.2500 #### [facility] [address] [place], [address] Monocytes/100 WBC (Bld) 5.5 % Normal 0-10 [facility] Comment on above: Performed By: #### L 100.0100, L501.5200, L500.2500 #### [facility] [address] [place], [address] Neutrophils/100 WBC (Bld) 73.9 % High 47-70 [facility] Comment on above: Performed By: #### L 100.0100, L501.5200, L500.2500 #### [facility] [address] [place], [address] Nucleated RBC (Bld) [#/Vol] 0 10*3/uL Normal 0-5 [facility] Comment on above: Performed By: #### L 100.0100, L501.5200, L500.2500 #### [facility] [address] [place], [address] Platelet mean volume (Bld) [Entitic vol] 9.3 fL Normal 6.2-12.0 [facility] Comment on above: Performed By: #### L 100.0100, L501.5200, L500.2500 #### [facility] [address] [place], [address] Platelets (Bld) [#/Vol] 231 10*3/uL Normal 150-450 [facility] Comment on above: Performed By: #### L 100.0100, L501.5200, L500.2500 #### [facility] [address] [place], [address] RBC (Bld) [#/Vol] 5.03 10*6/uL Normal 4.6-6.2 [facility] Comment on above: Performed By: #### L 100.0100, L501.5200, L500.2500 #### [facility] [address] [place], [address] RDW SD 41.3 fl Normal 35.1-43.9 [facility] Comment on above: Performed By: #### L 100.0100, L501.5200, L500.2500 #### [facility] [address] [place], [address] WBC (Bld) [#/Vol] 9.0 10*3/uL Normal 4.4-11.0 [facility] Comment on above: Performed By: #### L 100.0100, L501.5200, L500.2500 #### [facility] [address] [place], [address] Calcium [Mass/Vol]Ordered By : Pedro Krishnan on 11-27-2024 Serum or plasma calcium measurement (mass/volume) 8.8 mg/dL 8.5-10.1 [facility] Carbon dioxide measurementOr dered By: Pedro Krishnan on 11-27-2024 CO2 [Moles/Vol] 22.0 mmol/L 21.0-32.0 [facility] Carbon dioxide measurement 22.0 mmol/L 21.0-32.0 [facility] Chloride measurementOrdered By: Pedro Krishnan on 11-27-2024 Chloride [Moles/Vol] 101 mmol/L 98-107 [facility] Chloride measurement 101 mmol/L 98-107 [facility] Clarity (U)Ordered By: Pedro Krishnan on 11-27-2024 Urine clarity Clear Clear [facility] Color (U)Ordered By: Pedro persaud on 11-27-2024 Urine color determination Yellow Yellow [facility] Comprehensive Metabolic Prof ilon 11-27-2024 Albumin [Mass/Vol] 3.6 g/dL Normal 3.2-5.0 [facility] Comment on above: Performed By: #### L 100.0100, L501.5200, L500.2500 #### [facility] [address] [place], [address] Albumin/Globulin [Mass ratio] 1.0 {ratio} Normal 0.9-2.4 [facility] Comment on above: Performed By: #### L 100.0100, L501.5200, L500.2500 #### [facility] [address] [place], [address] ALK P 107 U/L Normal 45-117 [facility] Comment on above: Performed By: #### L 100.0100, L501.5200, L500.2500 #### [facility] [address] [place], [address] ALT [Catalytic activity/Vol] 16 U/L Normal 16-61 [facility] Comment on above: Performed By: #### L 100.0100, L501.5200, L500.2500 #### [facility] [address] [place], [address] AST [Catalytic activity/Vol] 11 U/L Low 15-37 [facility] Comment on above: Performed By: #### L 100.0100, L501.5200, L500.2500 #### [facility] [address] [place], [address] Bilirubin [Mass/Vol] 0.40 mg/dL Normal 0.20-1.00 [facility] Comment on above: Result Comment: For patients on eltrombopag therapy, use of Dimension Hubbell TBIL is not recommended. Performed By: #### L 100.0100, L501.5200, L500.2500 #### [facility] [address] [place], [address] BUN/CRE 12.7 RATIO Normal 10-20 [facility] Comment on above: Performed By: #### L 100.0100, L501.5200, L500.2500 #### [facility] [address] [place], [address] CA,Total 8.8 mg/dL Normal 8.5-10.1 [facility] Comment on above: Performed By: #### L 100.0100, L501.5200, L500.2500 #### [facility] [address] [place], [address] Chloride [Moles/Vol] 101 mmol/L Normal 98-107 [facility] Comment on above: Performed By: #### L 100.0100, L501.5200, L500.2500 #### [facility] [address] [place], [address] CO2 [Moles/Vol] 22.0 mmol/L Normal 21.0-32.0 [facility] Comment on above: Performed By: #### L 100.0100, L501.5200, L500.2500 #### [facility] [address] [place], [address] Creatinine [Mass/Vol] 0.94 mg/dL Normal 0.70-1.30 [facility] Comment on above: Result Comment: The validity of the calculated GFR GFRAA in patients over 70 years has not been determined. Clinical correlation is essential. Performed By: #### L 100.0100, L501.5200, L500.2500 #### [facility] [address] [place], [address] EST GFR - AA 103 mL/min Normal >60 [facility] Comment on above: Result Comment: Afri can [place]ar[place] GFR Calc Performed By: #### L 100.0100, L501.5200, L500.2500 #### [facility] [address] [place], [address] GAP 10 Normal 5-15 [facility] Comment on above: Performed By: #### L 100.0100, L501.5200, L500.2500 #### [facility] [address] [place], [address] GFR/1.73 sq M.predicted among non-blacks MDRD (S/P/Bld) [Vol rate/Area] 86 mL/min/{1.73_m2} Normal >60 [facility] Comment on above: Result Comment: Non- GFR Calc Performed By: #### L 100.0100, L501.5200, L500.2500 #### [facility] [address] [place], [address] Globulin (S) [Mass/Vol] 3.7 g/dL Normal 2.2-4.2 [facility] Comment on above: Performed By: #### L 100.0100, L501.5200, L500.2500 #### [facility] [address] [place], [address] Glucose [Mass/Vol] 373 mg/dL High 74-106 [facility] Comment on above: Result Comment: Gluc ose result greater than or equal to 200 mg/dL suggests DIABETES MELLITUS per A.D.A. criteria. Performed By: #### L 100.0100, L501.5200, L500.2500 #### [facility] [address] [place], [address] Potassium [Moles/Vol] 3.8 mmol/L Normal 3.5-5.1 [facility] Comment on above: Performed By: #### L 100.0100, L501.5200, L500.2500 #### [facility] [address] [place], [address] Sodium [Moles/Vol] 133 mmol/L Low 136-145 [facility] Comment on above: Performed By: #### L 100.0100, L501.5200, L500.2500 #### [facility] [address] [place], [address] T PROT 7.3 g/dL Normal 6.4-8.2 [facility] Comment on above: Performed By: #### L 100.0100, L501.5200, L500.2500 #### [facility] [address] [place], [address] Urea nitrogen [Mass/Vol] 12 mg/dL Normal 7-18 [facility] Comment on above: Performed By: #### L 100.0100, L501.5200, L500.2500 #### [facility] [address] [place], [address] Creatinine [Mass/Vol]Ordered By: Pedro Krishnan on 11-27-2024 Serum or plasma creatinine measurement (mass/volume) 0.94 mg/dL 0.70-1.30 [facility] Emergency Department Summary on 11-27-2024 Emergency Department Summary [facility] Medical Records Department [address] [place] [address] Emergency Department Summary 11/27/24 MR#: [id number] Acct: [id number] Name: JERALD YODER Rep #: [id number] : 1960 64 From: Pedro Krishnan DO [...] this and he has been passing gas. [facility] Medical History Partial traumatic amputation of [...] no juana (more content not included)... Normal [facility] Eosinophil percentageOrdered By: Pedro Krishnan on 11-27-2024 Eosinophils/100 WBC (Bld) 2.8 % 0-5 [facility] Eosinophil percentage 2.8 % 0-5 [facility] Erythrocyte distribution wid th (RBC) [Ratio]Ordered By: Pedro Krishnan on 11-27-2024 Erythrocyte distribution width ratio 14.2 % 11.6-14.6 [facility] Erythrocyte distribution width standard deviation 41.3 fl 35.1-43.9 [facility] Erythrocyte distribution wid th ratioOrdered By: Pedro Krishnan on 11-27-2024 Erythrocyte distribution width (RBC) [Ratio] 14.2 % 11.6-14.6 [facility] Erythrocyte distribution wid th standard deviationOrdered By: Perdo Krishnan on 11-27-2024 Erythrocyte distribution width (RBC) [Ratio] 41.3 fl 35.1-43.9 [facility] Estimated glomerular filtrat ion rate (GFR) AmericanOrdered By: Pedro Krishnan on 11-27-2024 Estimated glomerular filtration rate (GFR) 103 mL/min >60 [facility] Glomerular filtration rate ( GFR) estimationOrdered By: Pedro Krishnan on 11-27-2024 GFR/1.73 sq M.predicted among non-blacks MDRD (S/P/Bld) [Vol rate/Area] 86 mL/min/{1.73_m2} >60 [facility] Comment on above: Non- GFR Calc Glomerular filtration rate (GFR) estimation 86 mL/min >60 [facility] Glucose Ql (U)Ordered By: Bridger Krishnan on 11-27-2024 Urine glucose detection 1000 mg/dl High Normal [facility] Glucose measurementOrdered B y: Pedro Ariella on 11-27-2024 Glucose [Mass/Vol] 373 mg/dL High 74-106 [facility] Comment on above: Glucose result great er than or equal to 200 mg/dLsuggests DIABETES MELLITUS per A.D.A. criteria. Glucose measurement 373 mg/dL High 74-106 [facility] Hematocrit Auto (Bld) [Volum e fraction]Ordered By: Pedro Krishnan on 11-27-2024 Hematocrit (Bld) [Volume fraction] 41.1 % 40-54 [facility] Automated blood hematocrit (percentage) 41.1 % 40-54 [facility] Hemoglobin measurementOrdere d By: Pedro Krishnan on 11-27-2024 Hemoglobin (Bld) [Mass/Vol] 14.2 g/dL 13.0-16.5 [facility] Hemoglobin measurement 14.2 g/dL 13.0-16.5 [facility] Immature granulocytes/100 WB C Auto (Bld)Ordered By: Pedro Krishnan on 11-27-2024 Immature granulocytes/100 WBC (Bld) 0.300 % 0.0-0.9 [facility] Comment on above: IG% - Immature Granu locytes (promyelocytes, myelocytes and metamyelocytes) > 1% indicates that a LEFT SHIFT is Present. Automated immature granulocyte percentage 0.300 % 0.0-0.9 [facility] Ketones Test strip Ql (U)Ord ered By: Pedro Krishnan on 11-27-2024 Ketones Ql (U) Negative Negative [facility] - Chemistry and C hemistry - challengeOrdered By: Pedro Krishnan on 11-27-2024 AST [Catalytic activity/Vol] 11 U/L Low 15-37 [facility] Lipaseon 11-27-2024 Lipase [Catalytic activity/Vol] 23 U/L Normal 13-75 [facility] Comment on above: Result Comment: Oleksandr lopez note: LIPASE revised reference range effective 23. New Lipase methodology. Expected to produce lower values than the previous assay method. NEW Reference Range: 13 - 75 U/L Performed By: #### L 100.0100, L501.5200, L500.2500 #### [facility] [place], [address] Lipase measurementOrdered By : Pedro Krishnan on 11-27-2024 Lipase [Catalytic activity/Vol] 23 U/L 13-75 [facility] Comment on above: Please note:LIPASE r evised reference range effective 23. New Lipase methodology. Expected to produce lower values than the previous assay method. NEW Reference Range: 13 - 75 U/L Lipase measurement 23 U/L 13-75 [facility] Lymphocytes Auto (Unsp spec) [#/Vol]Ordered By: Pedro Krishnan on 11-27-2024 Absolute lymphocyte count 1.51 X10^3/uL 0.83-4.51 [facility] Lymphocytes/100 WBC Auto (Un sp spec)Ordered By: Pedro Krishnan on 11-27-2024 Automated lymphocyte count as percentage of total leukocytes 16.8 % Low 19-41 [facility] MCV (RBC) [Entitic vol]Order ed By: Pedro Krishnan on 11-27-2024 MCV (mean corpuscular volume) determination 81.7 fL 80-94 [facility] MCV (mean corpuscular volume ) determinationOrdered By: Pedro Krishnan on 11-27-2024 MCV (RBC) [Entitic vol] 81.7 fL 80-94 [facility] Mean corpuscular hemoglobin (MCH) determinationOrdered By: Pedro Krishnan on 11-27-2024 MCH (RBC) [Entitic mass] 28.2 pg 27.0-32.0 [facility] Mean corpuscular hemoglobin (MCH) determination 28.2 pg 27.0-32.0 [facility] Mean corpuscular hemoglobin concentration (MCHC) determinationOrdered By: Pedro Krishnan on 11-27-2024 MCHC (RBC) [Mass/Vol] 34.5 g/dL 32-36 [facility] Mean corpuscular hemoglobin concentration (MCHC) determination 34.5 g/dL 32-36 [facility] Mean platelet volume determi nationOrdered By: Pedro Krishnan on 11-27-2024 Platelet mean volume (Bld) [Entitic vol] 9.3 fL 6.2-12.0 [facility] Mean platelet volume determination 9.3 fl 6.2-12.0 [facility] Microscopic analysis of urin e for red blood cells (RBC)Ordered By: Pedro Krishnan on 11-27-2024 Microscopic analysis of urine for red blood cells (RBC) 0-5 SEEN /hpf 0-5 [facility] Monocyte percentageOrdered B y: Pedro Krishnan on 11-27-2024 Monocytes/100 WBC (Bld) 5.5 % 0-10 [facility] Monocyte percentage 5.5 % 0-10 [facility] Mucus LM Ql (Urine sed)Order ed By: Pedro Krishnan on 11-27-2024 Mucus Ql (Urine sed) 0 SEEN /hpf [facility] Mucus detection in urine sediment by light microscopy 0 SEEN /hpf [facility] Neutrophil percentageOrdered By: Pedro Krishnan on 11-27-2024 Neutrophils/100 WBC (Bld) 73.9 % High 47-70 [facility] Neutrophil percentage 73.9 % High 47-70 [facility] Nitrite Test strip Ql (U)Ord ered By: Pedro Krishnan on 11-27-2024 Nitrite Ql (U) Negative Negative [facility] No Panel InformationOrdered By: Pedro Krishnan on 11-27-2024 11 U/L Low 15-37 [facility] Nucleated red blood cell per centageOrdered By: Pedro Krishnan on 11-27-2024 Nucleated RBC/100 WBC (Bld) [Ratio] 0 % 0-5 [facility] Nucleated red blood cell percentage 0 % 0-5 [facility] Platelet countOrdered By: Bridger Krishnan on 11-27-2024 Platelets (Bld) [#/Vol] 231 10*3/uL 150-450 [facility] Platelet count 231 K/mm3 150-450 [facility] Potassium measurementOrdered By: Pedro Krishnan on 11-27-2024 Potassium [Moles/Vol] 3.8 mmol/L 3.5-5.1 [facility] Potassium measurement 3.8 mmol/L 3.5-5.1 [facility] Protein Test strip Ql (U)Ord ered By: Pedro Krishnan on 11-27-2024 Protein Ql (U) 30 mg/dl High Negative [facility] Urine protein assay by test strip, semi-quantitative 30 mg/dl High Negative [facility] RBC Auto (Bld) [#/Vol]Ordere d By: Pedro Krishnan on 11-27-2024 RBC (Bld) [#/Vol] 5.03 10*6/uL 4.6-6.2 [facility] Automated blood erythrocyte count 5.03 M/mm3 4.6-6.2 [facility] Serum anion gap measurementO rdered By: Pedro Krishnan on 11-27-2024 Anion gap [Moles/Vol] 10 mmol/L 5-15 [facility] Serum anion gap measurement 10 5-15 [facility] Serum globulin measurementOr dered By: Pedro Krishnan on 11-27-2024 Globulin (S) [Mass/Vol] 3.7 g/dL 2.2-4.2 [facility] Serum globulin measurement 3.7 g/dL 2.2-4.2 [facility] Serum or plasma alanine wagoner otransferase (ALT) measurementOrdered By: Pedro Krishnan on 11-27-2024 ALT [Catalytic activity/Vol] 16 U/L 16-61 [facility] Serum or plasma albumin yayo urement (mass/volume)Ordered By: Pedro Krishnan on 11-27-2024 Albumin [Mass/Vol] 3.6 g/dL 3.2-5.0 [facility] Serum or plasma alkaline andrzej sphatase measurementOrdered By: Pedro Krishnan on 11-27-2024 ALP [Catalytic activity/Vol] 107 U/L 45-117 [facility] Serum or plasma calcium yayo urement (mass/volume)Ordered By: Pedro Krishnan on 11-27-2024 Calcium [Mass/Vol] 8.8 mg/dL 8.5-10.1 [facility] Serum or plasma creatinine m easurement (mass/volume)Ordered By: Pedro Krishnan on 11-27-2024 Creatinine [Mass/Vol] 0.94 mg/dL 0.70-1.30 [facility] Comment on above: The validity of the calculated GFR & GFRAA in patients over 70 years has not been determined. Clinical correlation is essential. Serum or plasma urea nitroge n measurement (mass/volume)Ordered By: Pedro Krishnan on 11-27-2024 Urea nitrogen [Mass/Vol] 12 mg/dL 05-17 [facility] Sodium levelOrdered By: Vinicius Krishnan on 11-27-2024 Sodium [Moles/Vol] 133 mmol/L Low 136-145 [facility] Sodium level 133 mmol/L Low 136-145 [facility] Specific gravity (U) [Rel de nsity]Ordered By: Pedro Krishnan on 11-27-2024 Urine specific gravity measurement 1.020 1.002-1.030 [facility] Squamous epithelial cells de tection in urine sediment by light microscopyOrdered By: Pedro Krishnan on 11-27-2024 Epithelial cells.squamous LM Ql (Urine sed) 0-5 SEEN /hpf 0-5 [facility] Total proteinOrdered By: Issac Krishnan on 11-27-2024 Protein [Mass/Vol] 7.3 g/dL 6.4-8.2 [facility] Total protein 7.3 g/dL 6.4-8.2 [facility] Urea nitrogen [Mass/Vol]Orde red By: Pedro Krishnan on 11-27-2024 Serum or plasma urea nitrogen measurement (mass/volume) 12 mg/dL 05-17 [facility] Urinalysis, Completeon 11-27 BACTERIA RARE Normal None Seen [facility] Comment on above: Order Comment: CLEAN CATCH Performed By: #### L 100.0100, L501.5200, L500.2500 #### [facility] [address] [place], [address] EPI,SQUAMOUS 0-5 SEEN Normal 0-5 [facility] Comment on above: Order Comment: CLEAN CATCH Performed By: #### L 100.0100, L501.5200, L500.2500 #### [facility] [address] [place], [address] RBC 0-5 SEEN Normal 0-5 [facility] Comment on above: Order Comment: CLEAN CATCH Performed By: #### L 100.0100, L501.5200, L500.2500 #### [facility] [address] [place], [address] WBC 0-5 SEEN Normal 0-5 [facility] Comment on above: Order Comment: CLEAN CATCH Performed By: #### L 100.0100, L501.5200, L500.2500 #### [facility] [address] [place], [address] YEAST 1+ /hpf Normal None Seen [facility] Comment on above: Order Comment: CLEAN CATCH Performed By: #### L 100.0100, L501.5200, L500.2500 #### [facility] [address] [place], [address] Mucus Ql (Urine sed) 0 SEEN Normal [facility] Comment on above: Order Comment: CLEAN CATCH Performed By: #### L 100.0100, L501.5200, L500.2500 #### [facility] [address] [place], [address] Urine blood detectionOrdered By: Pedro Krishnan on 11-27-2024 Urine blood detection 10 /ul High Negative [facility] Urine clarityOrdered By: Issac Krishnan on 11-27-2024 Clarity (U) Clear Clear [facility] Urine color determinationOrd ered By: Pedro Krishnan on 11-27-2024 Color (U) Yellow Yellow [facility] Urine glucose detectionOrder ed By: Pedro Krishnan on 11-27-2024 Glucose Ql (U) 1000 mg/dl High Normal [facility] Urine leukocyte esterase det ection by dipstickOrdered By: Pedro Krishnan on 11-27-2024 Leukocyte esterase Test strip Ql (U) Negative Negative [facility] Urine pHOrdered By: Pedro wynne on 11-27-2024 pH (U) 6.0 [pH] 5.0 - 8.0 [facility] Urine sediment bacteria coun t by microscopy (number/high power field)Ordered By: Pedro Krishnan on 11-27-2024 Bacteria LM.HPF (Urine sed) [#/Area] RARE /hpf None Seen [facility] Urine sediment yeast count b y microscopy (number/high powered field)Ordered By: Pedro Krishnan on 11-27-2024 Yeast LM.HPF (Urine sed) [#/Area] 1 /[HPF] None Seen [facility] Urine specific gravity measu rementOrdered By: Pedro Krishnan on 11-27-2024 Specific gravity (U) [Rel density] 1.020 1.002-1.030 [facility] Urine total bilirubin detect ion by test stripOrdered By: Pedro Krishnan on 11-27-2024 Urine total bilirubin detection by test strip Negative Negative [facility] Urine urobilinogen measureme ntOrdered By: Pedro Krishnan on 11-27-2024 Urobilinogen Ql (U) Normal mg/dl Normal [facility] Urobilinogen Ql (U)Ordered B y: Pedro Krishnan on 11-27-2024 Urine urobilinogen measurement Normal mg/dl Normal [facility] White blood cell (WBC) count Ordered By: Pedro Krishnan on 11-27-2024 WBC (Bld) [#/Vol] 9.0 10*3/uL 4.4-11.0 [facility] White blood cell (WBC) count 9.0 K/mm3 4.4-11.0 [facility] White blood cell countOrdere d By: Pedro Krishnan on 11-27-2024 White blood cell count 0-5 SEEN /hpf 0-5 [facility] White blood cell count 0-5 SEEN /hpf 0-5 [facility] Yeast LM.HPF (Urine sed) [#/ Area]Ordered By: Pedro Krishnan on 11-27-2024 Urine sediment yeast count by microscopy (number/high powered field) 1+ /hpf None Seen [facility] pH (U)Ordered By: Pedro perez on 11-27-2024 Urine pH 6.0 5.0 - 8.0 [facility] Absolute neutrophil countOrd ered By: Johann Lemons on 10-30-2024 Absolute neutrophil count 4.5 X10^3/uL 2.0-7.7 [facility] Basic Metabolic Profile (BMP )on 10-30-2024 BUN/CRE 21.2 RATIO High 10-20 [facility] Comment on above: Performed By: #### L 100.0100, L501.5200, L500.2500 #### [facility] [address] [place], [address] CA,Total 9.0 mg/dL Normal 8.5-10.1 [facility] Comment on above: Performed By: #### L 100.0100, L501.5200, L500.2500 #### [facility] [address] [place], [address] Chloride [Moles/Vol] 101 mmol/L Normal 98-107 [facility] Comment on above: Performed By: #### L 100.0100, L501.5200, L500.2500 #### [facility] [address] [place], [address] CO2 [Moles/Vol] 29.0 mmol/L Normal 21.0-32.0 [facility] Comment on above: Performed By: #### L 100.0100, L501.5200, L500.2500 #### [facility] [address] [place], [address] Creatinine [Mass/Vol] 0.90 mg/dL Normal 0.70-1.30 [facility] Comment on above: Result Comment: The validity of the calculated GFR GFRAA in patients over 70 years has not been determined. Clinical correlation is essential. Performed By: #### L 100.0100, L501.5200, L500.2500 #### [facility] [address] [place], [address] EST GFR - AA 110 mL/min Normal >60 [facility] Comment on above: Result Comment: Afri can Nicaraguan GFR Calc Performed By: #### L 100.0100, L501.5200, L500.2500 #### [facility] [address] [place], [address] GAP 7 Normal 5-15 [facility] Comment on above: Performed By: #### L 100.0100, L501.5200, L500.2500 #### [facility] [address] [place], [address] GFR/1.73 sq M.predicted among non-blacks MDRD (S/P/Bld) [Vol rate/Area] 91 mL/min/{1.73_m2} Normal >60 [facility] Comment on above: Result Comment: Non- GFR Calc Performed By: #### L 100.0100, L501.5200, L500.2500 #### [facility] [address] [place], [address] Glucose [Mass/Vol] 361 mg/dL High 74-106 [facility] Comment on above: Result Comment: Gluc ose result greater than or equal to 200 mg/dL suggests DIABETES MELLITUS per A.D.A. criteria. Performed By: #### L 100.0100, L501.5200, L500.2500 #### [facility] [address] [place], [address] Potassium [Moles/Vol] 3.8 mmol/L Normal 3.5-5.1 [facility] Comment on above: Performed By: #### L 100.0100, L501.5200, L500.2500 #### [facility] [address] [place], [address] Sodium [Moles/Vol] 136 mmol/L Normal 136-145 [facility] Comment on above: Performed By: #### L 100.0100, L501.5200, L500.2500 #### [facility] [address] [place], [address] Urea nitrogen [Mass/Vol] 19 mg/dL High 7-18 [facility] Comment on above: Performed By: #### L 100.0100, L501.5200, L500.2500 #### [facility] [address] [place], [address] Basophil percentageOrdered B y: Johann Lemons on 10-30-2024 Basophil percentage 0.4 % 0-1 [facility] Blood urea nitrogen (BUN)/cr eatinine ratioOrdered By: Johann Cristo on 10-30-2024 Blood urea nitrogen (BUN)/creatinine ratio 21.2 RATIO High 10-20 [facility] CBC W/Diff, Automatedon 12-12 29-2023 Absolute Lymph 1.53 X10 3/uL Normal 0.83-4.51 [facility] Comment on above: Performed By: #### L 100.0100, L501.5200, L500.2500 #### [facility] [address] [place], [address] Absolute Neut 4.5 X10 3/uL Normal 2.0-7.7 [facility] Comment on above: Performed By: #### L 100.0100, L501.5200, L500.2500 #### [facility] [address] [place], [address] Basophils/100 WBC (Bld) 0.4 % Normal 0-1 [facility] Comment on above: Performed By: #### L 100.0100, L501.5200, L500.2500 #### [facility] [address] [place], [address] Eosinophils/100 WBC (Bld) 3.5 % Normal 0-5 [facility] Comment on above: Performed By: #### L 100.0100, L501.5200, L500.2500 #### [facility] [address] [place], [address] Erythrocyte distribution width (RBC) [Ratio] 13.2 % Normal 11.6-14.6 [facility] Comment on above: Performed By: #### L 100.0100, L501.5200, L500.2500 #### [facility] [address] [place], [address] Hematocrit (Bld) [Volume fraction] 39.5 % Low 40-54 [facility] Comment on above: Performed By: #### L 100.0100, L501.5200, L500.2500 #### [facility] [address] [place], [address] Hemoglobin (Bld) [Mass/Vol] 14.2 g/dL Normal 13.0-16.5 [facility] Comment on above: Performed By: #### L 100.0100, L501.5200, L500.2500 #### [facility] [address] [place], [address] IG% 0.600 Normal 0.0-0.9 [facility] Comment on above: Result Comment: IG% - Immature Granulocytes (promyelocytes, myelocytes and metamyelocytes) > 1% indicates that a LEFT SHIFT is Present. Performed By: #### L 100.0100, L501.5200, L500.2500 #### [facility] [address] [place], [address] Lymphocytes/100 WBC (Bld) 22.4 % Normal 19-41 [facility] Comment on above: Performed By: #### L 100.0100, L501.5200, L500.2500 #### [facility] [address] [place], [address] MCH (RBC) [Entitic mass] 29.0 pg Normal 27.0-32.0 [facility] Comment on above: Performed By: #### L 100.0100, L501.5200, L500.2500 #### [facility] [address] [place], [address] MCHC (RBC) [Mass/Vol] 35.9 g/dL Normal 32-36 [facility] Comment on above: Performed By: #### L 100.0100, L501.5200, L500.2500 #### [facility] [address] [place], [address] MCV (RBC) [Entitic vol] 80.6 fL Normal 80-94 [facility] Comment on above: Performed By: #### L 100.0100, L501.5200, L500.2500 #### [facility] [address] [place], [address] Monocytes/100 WBC (Bld) 7.2 % Normal 0-10 [facility] Comment on above: Performed By: #### L 100.0100, L501.5200, L500.2500 #### [facility] [address] [place], [address] Neutrophils/100 WBC (Bld) 65.9 % Normal 47-70 [facility] Comment on above: Performed By: #### L 100.0100, L501.5200, L500.2500 #### [facility] [address] [place], [address] Nucleated RBC (Bld) [#/Vol] 0 10*3/uL Normal 0-5 [facility] Comment on above: Performed By: #### L 100.0100, L501.5200, L500.2500 #### [facility] [address] [place], [address] Platelet mean volume (Bld) [Entitic vol] 9.1 fL Normal 6.2-12.0 [facility] Comment on above: Performed By: #### L 100.0100, L501.5200, L500.2500 #### [facility] [address] [place], [address] Platelets (Bld) [#/Vol] 158 10*3/uL Normal 150-450 [facility] Comment on above: Performed By: #### L 100.0100, L501.5200, L500.2500 #### [facility] [address] [place], [address] RBC (Bld) [#/Vol] 4.90 10*6/uL Normal 4.6-6.2 [facility] Comment on above: Performed By: #### L 100.0100, L501.5200, L500.2500 #### [facility] [address] [place], [address] RDW SD 38.2 fl Normal 35.1-43.9 [facility] Comment on above: Performed By: #### L 100.0100, L501.5200, L500.2500 #### [facility] [address] [place], [address] WBC (Bld) [#/Vol] 6.8 10*3/uL Normal 4.4-11.0 [facility] Comment on above: Performed By: #### L 100.0100, L501.5200, L500.2500 #### [facility] [address] [place], [address] Calcium [Mass/Vol]Ordered By : Johann Lemons on 10-30-2024 Serum or plasma calcium measurement (mass/volume) 9.0 mg/dL 8.5-10.1 [facility] Carbon dioxide measurementOr dered By: Johann Lemons on 10-30-2024 Carbon dioxide measurement 29.0 mmol/L 21.0-32.0 [facility] Chloride measurementOrdered By: Johann Lemons on 10-30-2024 Chloride measurement 101 mmol/L 98-107 [facility] Clarity (U)Ordered By: Roland Lemons on 10-30-2024 Urine clarity Clear Clear [facility] Color (U)Ordered By: Johann Lemons on 10-30-2024 Urine color determination Yellow Yellow [facility] Creatinine [Mass/Vol]Ordered By: Johann Lemons on 10-30-2024 Serum or plasma creatinine measurement (mass/volume) 0.90 mg/dL 0.70-1.30 [facility] Emergency Department Summary on 10-30-2024 Emergency Department Summary [facility] Medical Records Department [address] [place] [address] Emergency Department Summary 10/30/24 MR#: [id number] Acct: [id number] Name: JERALD YODER Rep #: [id number] : 1960 64 From: Johann Lemons DO [...] called EMS was brought in for evaluation [facility] Medical History Partial traumatic amputation of [...] [employer] [place] (more content not included)... Normal [facility] Eosinophil percentageOrdered By: Johann Lemons on 10-30-2024 Eosinophil percentage 3.5 % 0-5 [facility] Erythrocyte distribution wid th (RBC) [Ratio]Ordered By: Johann Lemons on 10-30-2024 Erythrocyte distribution width ratio 13.2 % 11.6-14.6 [facility] Erythrocyte distribution width standard deviation 38.2 fl 35.1-43.9 [facility] Estimated glomerular filtrat ion rate (GFR) AmericanOrdered By: Johann Lemons on 10-30-2024 Estimated glomerular filtration rate (GFR) 110 mL/min >60 [facility] Glomerular filtration rate ( GFR) estimationOrdered By: Johann Lemons on 10-30-2024 Glomerular filtration rate (GFR) estimation 91 mL/min >60 [facility] Glucose Ql (U)Ordered By: Julia Lemons on 10-30-2024 Urine glucose detection 1000 mg/dl High Normal [facility] Glucose measurementOrdered B y: Johann Lemons on 10-30-2024 Glucose measurement 361 mg/dL High 74-106 [facility] Hematocrit Auto (Bld) [Volum e fraction]Ordered By: Johann Lemons on 10-30-2024 Automated blood hematocrit (percentage) 39.5 % Low 40-54 [facility] Hemoglobin measurementOrdere d By: Johann Lemons on 10-30-2024 Hemoglobin measurement 14.2 g/dL 13.0-16.5 [facility] Immature granulocytes/100 WB C Auto (Bld)Ordered By: Johann Lemons on 10-30-2024 Automated immature granulocyte percentage 0.600 % 0.0-0.9 [facility] Ketones Test strip Ql (U)Ord ered By: Johann Lemons on 10-30-2024 Urine ketones detection by test strip 5 mg/dl High Negative [facility] Lymphocytes Auto (Unsp spec) [#/Vol]Ordered By: Johann Lemons on 10-30-2024 Absolute lymphocyte count 1.53 X10^3/uL 0.83-4.51 [facility] Lymphocytes/100 WBC Auto (Un sp spec)Ordered By: Johann Lemons on 10-30-2024 Automated lymphocyte count as percentage of total leukocytes 22.4 % 19-41 [facility] M100.678on 10-30-2024 M100.678 Pending SARS-CoV-2 (COVID 19) Negative INFLUENZA A Negative INFLUENZA B Negative RSV PCR Negative Normal [facility] Comment on above: Performed By: #### L 501.080 #### [facility] [address] [facility] [place], [address] MCV (RBC) [Entitic vol]Order ed By: Johann Lemons on 10-30-2024 MCV (mean corpuscular volume) determination 80.6 fL 80-94 [facility] Magnesiumon 10-30-2024 Magnesium [Mass/Vol] 1.5 mg/dL Low 1.6-2.6 [facility] Comment on above: Performed By: #### L 100.0100, L501.5200, L500.2500 #### [facility] [address] [place], [address] Magnesium measurementOrdered By: Johann Lemons on 10-30-2024 Magnesium measurement 1.5 mg/dL Low 1.6-2.6 [facility] Mean corpuscular hemoglobin (MCH) determinationOrdered By: Johann Lemons on 10-30-2024 Mean corpuscular hemoglobin (MCH) determination 29.0 pg 27.0-32.0 [facility] Mean corpuscular hemoglobin concentration (MCHC) determinationOrdered By: Johann Lemons on 10-30-2024 Mean corpuscular hemoglobin concentration (MCHC) determination 35.9 g/dL 32-36 [facility] Mean platelet volume determi nationOrdered By: Johann Lemons on 10-30-2024 Mean platelet volume determination 9.1 fl 6.2-12.0 [facility] Monocyte percentageOrdered B y: Johann Lemons on 10-30-2024 Monocyte percentage 7.2 % 0-10 [facility] Neutrophil percentageOrdered By: Johann Lemons on 10-30-2024 Neutrophil percentage 65.9 % 47-70 [facility] Nucleated red blood cell per centageOrdered By: Johann Lemons on 10-30-2024 Nucleated red blood cell percentage 0 % 0-5 [facility] Platelet countOrdered By: Julia Lemons on 10-30-2024 Platelet count 158 K/mm3 150-450 [facility] Potassium measurementOrdered By: Johann Lemons on 10-30-2024 Potassium measurement 3.8 mmol/L 3.5-5.1 [facility] Protein Test strip Ql (U)Ord ered By: Johann Lemons on 10-30-2024 Urine protein assay by test strip, semi-quantitative 15 mg/dl High Negative [facility] RBC Auto (Bld) [#/Vol]Ordere d By: Johann Lemons on 10-30-2024 Automated blood erythrocyte count 4.90 M/mm3 4.6-6.2 [facility] Serum anion gap measurementO rdered By: Johann Lemons on 10-30-2024 Serum anion gap measurement 7 5-15 [facility] Sodium levelOrdered By: Keith Lemons on 10-30-2024 Sodium level 136 mmol/L 136-145 [facility] Specific gravity (U) [Rel de nsity]Ordered By: Johann Lemons on 10-30-2024 Urine specific gravity measurement 1.015 1.002-1.030 [facility] Urea nitrogen [Mass/Vol]Orde red By: Johann Lemons on 10-30-2024 Serum or plasma urea nitrogen measurement (mass/volume) 19 mg/dL High 7-18 [facility] Urinalysis, Completeon 10-30 BACTERIA 0 SEEN Normal None Seen [facility] Comment on above: Order Comment: NO CTOR TO SPECIFY Performed By: #### L 501.080 #### [facility] [address] [place], [address] EPI,SQUAMOUS 0 SEEN Normal 0-5 [facility] Comment on above: Order Comment: NO CTOR TO SPECIFY Performed By: #### L 501.080 #### [facility] [address] [place], [address] Mucus Ql (Urine sed) 0 SEEN Normal [facility] Comment on above: Order Comment: NO CTOR TO SPECIFY Performed By: #### L 501.080 #### [facility] [address] [place], [address] RBC 0 SEEN Normal 0-5 [facility] Comment on above: Order Comment: NO CTOR TO SPECIFY Performed By: #### L 501.080 #### [facility] [address] [place], [address] WBC 0 SEEN Normal 0-[address] [place] [address] Comment on above: Order Comment: NO CTOR TO SPECIFY Performed By: #### L 501.080 #### [facility] [address] [place], [address] Urine total bilirubin detect ion by test stripOrdered By: Johann Lemons on 10-30-2024 Urine total bilirubin detection by test strip Negative Negative [facility] Urobilinogen Ql (U)Ordered B y: Johann Lemons on 10-30-2024 Urine urobilinogen measurement Normal mg/dl Normal [facility] White blood cell (WBC) count Ordered By: Johann Lemons on 10-30-2024 White blood cell (WBC) count 6.8 K/mm3 4.4-11.0 [facility] White blood cell countOrdere d By: Johann Lemons on 10-30-2024 White blood cell count 0 SEEN /hpf [facility] pH (U)Ordered By: Wilmer on 10-30-2024 Urine pH 6.0 5.0 - 8.0 [facility] Chest 1 View (Portable)on Chest 1 View (Portable) [facility] Imaging Services [address] [place] [address] Chest 1 View (Portable) MR#: [id number] Acct: [id number] Name: JERALD YODER Rep #: [id number] : 1960 M 64 From: Dina Christina PCP: Dr. Linden Chavez DO Status: REG ER Study: Chest 1 View (Portable) Date of Exam: 10/29/24 Exam# [id number] Ordering Dr: [place] [id number] INDICATION: weakness EXAMINATION/TECHNIQUE: X-RAY - XR Chest [...] Location ID and State: [facility] / [place] Tel , Service support , CC: Dr. Linden Chavez DO; Johann Lemons DO Barrel Loader And Cleaner: Signed Normal [facility] 12 Lead EKGon 10-19-2024 12 Lead EKG [facility] Cardiovascular Services [address] [place] [address] 12 Lead EKG 10/19/24 0422 MR#: [id number] Acct: [id number] Name: JERALD YODER Rep #: [id number] : 1960 64 From: Cesar Mccoy MD [...] ECG Confirmed by TESSA TRACY, CESAR ([id number]), film and video editor CARLA HERNANDEZ ([id number]) on 10/19/2024 8:17:03 AM Referred By: Confirmed By: CESAR MCCOY MD 10/19/24 0817 Date Cesar Mccoy MD CC: Dr. Live Ashley MD; Dr. Linden hCavez, DO Signed Normal [facility] Absolute neutrophil countOrd ered By: Live Ashley on 10-19-2024 Absolute neutrophil count 4.7 X10^3/uL 2.0-7.7 [facility] Basic Metabolic Profile (BMP )on 10-19-2024 BUN/CRE 14.7 RATIO Normal 08-19 [facility] Comment on above: Order Comment: 'TROP ' Serial specimen #1, #2 or #3: 1 Performed By: #### L 500.2500, L501.4020, L100.0100 #### [facility] [address] [place], [address] CA,Total 8.8 mg/dL Normal 8.5-10.1 [facility] Comment on above: Order Comment: 'TROP ' Serial specimen #1, #2 or #3: 1 Performed By: #### L 500.2500, L501.4020, L100.0100 #### [facility] [address] [place], [address] Chloride [Moles/Vol] 99 mmol/L Normal 98-107 [facility] Comment on above: Order Comment: 'TROP ' Serial specimen #1, #2 or #3: 1 Performed By: #### L 500.2500, L501.4020, L100.0100 #### [facility] [address] [place], [address] CO2 [Moles/Vol] 26.0 mmol/L Normal 21.0-32.0 [facility] Comment on above: Order Comment: 'TROP ' Serial specimen #1, #2 or #3: 1 Performed By: #### L 500.2500, L501.4020, L100.0100 #### [facility] [address] [place], [address] Creatinine [Mass/Vol] 1.02 mg/dL Normal 0.70-1.30 [facility] Comment on above: Order Comment: 'TROP ' Serial specimen #1, #2 or #3: 1 Result Comment: The validity of the calculated GFR GFRAA in patients over 70 years has not been determined. Clinical correlation is essential. Performed By: #### L 500.2500, L501.4020, L100.0100 #### [facility] [address] [place], [address] ECRCL 92.21 ml/min Normal [facility] Comment on above: Order Comment: 'TROP ' Serial specimen #1, #2 or #3: 1 Performed By: #### L 500.2500, L501.4020, L100.0100 #### [facility] [address] [place], [address] EST GFR - AA 94 mL/min Normal >60 [facility] Comment on above: Order Comment: 'TROP ' Serial specimen #1, #2 or #3: 1 Result Comment: Afri can Nicaraguan GFR Calc Performed By: #### L 500.2500, L501.4020, L100.0100 #### [facility] [address] [place], [address] GAP 5 Normal 5-15 [facility] Comment on above: Order Comment: 'TROP ' Serial specimen #1, #2 or #3: 1 Performed By: #### L 500.2500, L501.4020, L100.0100 #### [facility] [address] [place], [address] GFR/1.73 sq M.predicted among non-blacks MDRD (S/P/Bld) [Vol rate/Area] 78 mL/min/{1.73_m2} Normal >60 [facility] Comment on above: Order Comment: 'TROP ' Serial specimen #1, #2 or #3: 1 Result Comment: Non- GFR Calc Performed By: #### L 500.2500, L501.4020, L100.0100 #### [facility] [address] [place], [address] Glucose [Mass/Vol] 494 mg/dL Invalid Interpretation Code 74-106 [facility] Comment on above: Order Comment: 'TROP ' Serial specimen #1, #2 or #3: 1 Result Comment: Crit ical Result(s) Called at: 04:42:01 10/19/2024 by: Carla Montgomery LSparr. Results read back by same. Glucose result greater than or equal to 200 mg/dL suggests DIABETES MELLITUS per A.D.A. criteria. Performed By: #### L 500.2500, L501.4020, L100.0100 #### [facility] [address] [place], [address] Potassium [Moles/Vol] 3.7 mmol/L Normal 3.5-5.1 [facility] Comment on above: Order Comment: 'TROP ' Serial specimen #1, #2 or #3: 1 Performed By: #### L 500.2500, L501.4020, L100.0100 #### [facility] [address] [place], [address] Sodium [Moles/Vol] 130 mmol/L Low 136-145 [facility] Comment on above: Order Comment: 'TROP ' Serial specimen #1, #2 or #3: 1 Performed By: #### L 500.2500, L501.4020, L100.0100 #### [facility] [address] [place], [address] Urea nitrogen [Mass/Vol] 15 mg/dL Normal 7-18 [facility] Comment on above: Order Comment: 'TROP ' Serial specimen #1, #2 or #3: 1 Performed By: #### L 500.2500, L501.4020, L100.0100 #### [facility] [address] [place], [address] Basophil percentageOrdered B y: Live Ashley on 10-19-2024 Basophil percentage 1.0 % 0-1 [facility] Bedside Glucoseon 10-19-2024 FINGERSTICK GLU 263 mg/dL High [address] [place] [address] Comment on above: Result Comment: TAYLOR GEMENT OF PATIENT CARE PER NURSING PROTOCOL Performed By: #### L 501.080 #### [facility] [address] [place], [address] FINGERSTICK GLU 353 mg/dL High [address] [place] [address] Comment on above: Result Comment: TAYLOR GEMENT OF PATIENT CARE PER NURSING PROTOCOL Performed By: #### L 501.080 #### [facility] [address] [place], [address] FINGERSTICK GLU > 500 Invalid Interpretation Code [address] [place] [address] Comment on above: Result Comment: TAYLOR GEMENT OF PATIENT CARE PER NURSING PROTOCOL Performed By: #### L 100.0100, L501.5200, L500.2500 #### [facility] [address] [place], [address] Blood urea nitrogen (BUN)/cr eatinine ratioOrdered By: Live Ashley on 10-19-2024 Blood urea nitrogen (BUN)/creatinine ratio 14.7 RATIO 08-19 [facility] CBC W/Diff, Automatedon 10-01 PLT EST ADEQUATE Normal ADEQ [facility] Comment on above: Performed By: #### L 500.2500, L501.4020, L100.0100 #### [facility] [address] [place], [address] RED CELL MORPH NORM C+C Normal NORM C C [facility] Comment on above: Performed By: #### L 500.2500, L501.4020, L100.0100 #### [facility] [address] [place], [address] SMEAR COMMENT SCANNED Normal [facility] Comment on above: Performed By: #### L 500.2500, L501.4020, L100.0100 #### [facility] [address] [place], [address] Calcium [Mass/Vol]Ordered By : Live Ashley on 10-19-2024 Serum or plasma calcium measurement (mass/volume) 8.8 mg/dL 8.5-10.1 [facility] Carbon dioxide measurementOr dered By: Live Ashley on 10-19-2024 Carbon dioxide measurement 26.0 mmol/L 21.0-32.0 [facility] Chest PA and Lateralon 10-19 Chest PA and Lateral [facility] Imaging Services [address] [place] [address] Chest PA and Lateral MR#: [id number] Acct: [id number] Name: JERALD YODER Rep #: [id number] : 1960 M 64 From: Johann Aldrich MD PCP: Dr. Lidnen Chavez, DO Status: REG ER Study: Chest PA and Lateral Date of Exam: 10/19/24 Exam# [id number] Ordering Dr: [place] [id number] EXAM: XR CHEST, 2 VIEWS CLINICAL INDICATION: [...] Live Ashley MD; Dr. Linden Chavez DO Barrel Loader And Cleaner: Signed Normal [facility] Chloride measurementOrdered By: Live Ashley on 10-19-2024 Chloride measurement 99 mmol/L 98-107 [facility] Clarity (U)Ordered By: Melissa Ashley on 10-19-2024 Urine clarity Clear Clear [facility] Color (U)Ordered By: Live Ashley on 10-19-2024 Urine color determination Yellow Yellow [facility] Creatinine [Mass/Vol]Ordered By: Live Ashley on 10-19-2024 Serum or plasma creatinine measurement (mass/volume) 1.02 mg/dL 0.70-1.30 [facility] Emergency Department Summary on 10-19-2024 Emergency Department Summary [facility] Medical Records Department [address] [place] [address] Emergency Department Summary 10/19/24 MR#: [id number] Acct: [id number] Name: JERALD YODER Rep #: [id number] : 1960 64 From: Live Ashley MD [...] that lasted, he states about an hour. [facility] Medical History Partial traumatic amputation of [...] 104 P (more content not included)... Normal [facility] Eosinophil percentageOrdered By: Live Ashley on 10-19-2024 Eosinophil percentage 3.0 % 0-5 [facility] Epithelial cells.squamous LM Ql (Urine sed)Ordered By: Live Ashley on 10-19-2024 Squamous epithelial cells detection in urine sediment by light microscopy 0-5 SEEN /hpf 0-5 [facility] Erythrocyte distribution wid th (RBC) [Ratio]Ordered By: Live Ashley on 10-19-2024 Erythrocyte distribution width ratio 13.2 % 11.6-14.6 [facility] Erythrocyte distribution width standard deviation 38.4 fl 35.1-43.9 [facility] Estimated glomerular filtrat ion rate (GFR) AmericanOrdered By: Live Ashley on 10-19-2024 Estimated glomerular filtration rate (GFR) 94 mL/min >60 [facility] Estimation of creatinine edinson aranceOrdered By: Live Ashley on 10-19-2024 Estimation of creatinine clearance 92.21 ml/min [facility] Glomerular filtration rate ( GFR) estimationOrdered By: Live Ashley on 10-19-2024 Glomerular filtration rate (GFR) estimation 78 mL/min >60 [facility] Glucose Ql (U)Ordered By: Dipak Ashley on 10-19-2024 Urine glucose detection 1000 mg/dl High Normal [facility] Glucose measurementOrdered B y: Live Ashley on 10-19-2024 Glucose measurement 494 mg/dL High 74-106 [facility] Glucose measurement at bedsi deOrdered By: Live Ashley on 10-19-2024 Glucose measurement at bedside 263 mg/dL High 74-106 [facility] Hematocrit Auto (Bld) [Volum e fraction]Ordered By: Live Ashley on 10-19-2024 Automated blood hematocrit (percentage) 43.9 % 40-54 [facility] Hemoglobin measurementOrdere d By: Live Ashley on 10-19-2024 Hemoglobin measurement 15.6 g/dL 13.0-16.5 [facility] Immature granulocytes/100 WB C Auto (Bld)Ordered By: Live Ashley on 10-19-2024 Automated immature granulocyte percentage 0.300 % 0.0-0.9 [facility] L501.4020on 10-19-2024 TROPONIN-I HS < 3 Low 3.0-78.0 [facility] Comment on above: Order Comment: 'TROP ' Serial specimen #1, #2 or #3: 1 Result Comment: Plea se Note: New Test Units and Gender Specific Reference Ranges. For more information see Policy Stat Procedure Hubbell High Sensitivity Troponin (TNIH) and attachments. Performed By: #### L 500.2500, L501.4020, L100.0100 #### [facility] [address] [place], [address] Lymphocytes Auto (Unsp spec) [#/Vol]Ordered By: Live Ashley on 10-19-2024 Absolute lymphocyte count 2.40 X10^3/uL 0.83-4.51 [facility] Lymphocytes/100 WBC Auto (Un sp spec)Ordered By: Live Ashley on 10-19-2024 Automated lymphocyte count as percentage of total leukocytes 30.0 % 19-41 [facility] MCV (RBC) [Entitic vol]Order ed By: Live Ashley on 10-19-2024 MCV (mean corpuscular volume) determination 80.0 fL 80-94 [facility] Manual differential comment Robert (Bld) [Interp]Ordered By: Live Ashlye on 10-19-2024 Blood manual differential comment interpretation (narrative result) SCANNED [facility] Mean corpuscular hemoglobin (MCH) determinationOrdered By: Live Ashley on 10-19-2024 Mean corpuscular hemoglobin (MCH) determination 28.4 pg 27.0-32.0 [facility] Mean corpuscular hemoglobin concentration (MCHC) determinationOrdered By: Live Ashley on 10-19-2024 Mean corpuscular hemoglobin concentration (MCHC) determination 35.5 g/dL 32-36 [facility] Mean platelet volume determi nationOrdered By: Live Ashley on 10-19-2024 Mean platelet volume determination 10.0 fl 6.2-12.0 [facility] Monocyte percentageOrdered B y: Live Ashley on 10-19-2024 Monocyte percentage 6.6 % 0-10 [facility] Neutrophil percentageOrdered By: Live Ashley on 10-19-2024 Neutrophil percentage 59.1 % 47-70 [facility] Nucleated red blood cell per centageOrdered By: Live Ashley on 10-19-2024 Nucleated red blood cell percentage 0 % 0-5 [facility] Platelet countOrdered By: Dipak Ashley on 10-19-2024 Platelet count 150 K/mm3 150-450 [facility] Platelets LM Ql (Bld)Ordered By: Live Ashley on 10-19-2024 Platelet estimate ADEQUATE ADEQ [facility] Potassium measurementOrdered By: Live Ashley on 10-19-2024 Potassium measurement 3.7 mmol/L 3.5-5.1 [facility] RBC Auto (Bld) [#/Vol]Ordere d By: Live Ashley on 10-19-2024 Automated blood erythrocyte count 5.49 M/mm3 4.6-6.2 [facility] RBC morphology finding Nom ( Bld)Ordered By: Live Ashley on 10-19-2024 Erythrocyte morphology assessment NORM C+C NORMAL NORM C&C [facility] Serum anion gap measurementO rdered By: Live Ashley on 10-19-2024 Serum anion gap measurement 5 5-15 [facility] Sodium levelOrdered By: Stevan Ashley on 10-19-2024 Sodium level 130 mmol/L Low 136-145 [facility] Specific gravity (U) [Rel de nsity]Ordered By: Live Ashley on 10-19-2024 Urine specific gravity measurement 1.010 1.002-1.030 [facility] Troponin IOrdered By: Srinivasa Ashley on 10-19-2024 Troponin I < 3 pg/mL Low 3.0-78.0 [facility] Urea nitrogen [Mass/Vol]Orde red By: Live Ashley on 10-19-2024 Serum or plasma urea nitrogen measurement (mass/volume) 15 mg/dL 7-18 [facility] Urinalysis, Completeon 10-19 EPI,SQUAMOUS 0-5 SEEN Normal 0-5 [facility] Comment on above: Order Comment: CLEAN CATCH Performed By: #### L 100.0100, L501.5200, L500.2500 #### [facility] [address] [place], [address] BACTERIA 0 SEEN Normal None Seen [facility] Comment on above: Order Comment: CLEAN CATCH Performed By: #### L 100.0100, L501.5200, L500.2500 #### [facility] [address] [place], [address] Mucus Ql (Urine sed) 0 SEEN Normal [facility] Comment on above: Order Comment: CLEAN CATCH Performed By: #### L 100.0100, L501.5200, L500.2500 #### [facility] [address] [place], [address] RBC 0 SEEN Normal 0-5 [facility] Comment on above: Order Comment: CLEAN CATCH Performed By: #### L 100.0100, L501.5200, L500.2500 #### [facility] [address] [place], [address] WBC 0 SEEN Normal 0-5 [facility] Comment on above: Order Comment: CLEAN CATCH Performed By: #### L 100.0100, L501.5200, L500.2500 #### [facility] [address] [place], [address] Urine total bilirubin detect ion by test stripOrdered By: Live Ashley on 10-19-2024 Urine total bilirubin detection by test strip Negative Negative [facility] Urobilinogen Ql (U)Ordered B y: Live Ashley on 10-19-2024 Urine urobilinogen measurement Normal mg/dl Normal [facility] White blood cell (WBC) count Ordered By: Live Ashley on 10-19-2024 White blood cell (WBC) count 8.0 K/mm3 4.4-11.0 [facility] White blood cell countOrdere d By: Live Ashley on 10-19-2024 White blood cell count 0 SEEN /hpf [facility] pH (U)Ordered By: Live Overton juan josé on 10-19-2024 Urine pH 6.5 5.0 - 8.0 [facility] Emergency Department Summary on 08-10-2024 Emergency Department Summary [facility] Medical Records Department [address] [place] [address] Emergency Department Summary 08/10/24 MR#: [id number] Acct: [id number] Name: JERALD YODER Rep #: [id number] : 1960 64 From: Adam Allen DO [...] mosquito bites. He denies any recent trauma. [facility] Medical History Partial traumatic amputation of [...] pain, diarrh (more content not included)... 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 Requesting ear irrigation. The history is provided by the patient. No bronze plater was used. Ear Problem There is pain [...] Colon polyp 2013 adenomatous Coronary artery disease [place] in 1994 Diabetic neuropathy (HCC) DM (diabetes [...] Vaping Use (more content not included)... Normal [facility] Absolute lymphocyte countOrd ered By: Johann Lemons on 03-08-2024 Lymphocytes Auto (Unsp spec) [#/Vol] 1.65 10*3/uL 0.83-4.51 [facility] Automated lymphocyte count a s percentage of total leukocytesOrdered By: Johann Lemons on 03-08-2024 Lymphocytes/100 WBC Auto (Unsp spec) 22.8 % 19-41 [facility] Basophil percentageOrdered B y: Johann Lemons on 03-08-2024 Basophils/100 WBC (Bld) 0.6 % 0-1 [facility] Bilirubin [Mass/Vol] 0.60 mg/dL 0.20-1.00 [facility] Comment on above: For patients on eltr ombopag therapy, use of Dimension Hubbell TBIL is not recommended. Chloride [Moles/Vol] 97 mmol/L 98-107 [facility] Eosinophils/100 WBC (Bld) 3.9 % 0-5 [facility] Glucose [Mass/Vol] 520 mg/dL 74-106 [facility] Comment on above: Critical Result(s) C alled at: 07:30:39 03/08/2024 by: Darrell Santos to Dawna Vazquez. Results read back by same.Glucose result greater than or equal to 200 mg/dLsuggests DIABETES MELLITUS per A.D.A. criteria. Hemoglobin (Bld) [Mass/Vol] 14.8 g/dL 13.0-16.5 [facility] Monocytes/100 WBC (Bld) 6.9 % 0-10 [facility] Neutrophils (Bld) [#/Vol] 4.8 10*3/uL 2.0-7.7 [facility] Neutrophils/100 WBC (Bld) 65.4 % 47-70 [facility] Potassium [Moles/Vol] 4.0 mmol/L 3.5-5.1 [facility] Protein [Mass/Vol] 7.2 g/dL 6.4-8.2 [facility] Sodium [Moles/Vol] 134 mmol/L 136-145 [facility] WBC (Bld) [#/Vol] 7.3 10*3/uL 4.4-11.0 [facility] Determination of erythrocyte mean corpuscular volume (MCV)Ordered By: Johann Lemons on 03-08-2024 MCV (RBC) [Entitic vol] 82.2 fL 80-94 [facility] Direct bilirubinOrdered By: Johann Lemons on 03-08-2024 Bilirubin.direct [Mass/Vol] 0.19 mg/dL 0.00-0.30 [facility] Erythrocyte distribution wid th ratioOrdered By: Johann Lemons on 03-08-2024 Erythrocyte distribution width (RBC) [Ratio] 13.3 % 11.6-14.6 [facility] Erythrocyte distribution wid th standard deviationOrdered By: Johann Lemons on 03-08-2024 Erythrocyte distribution width (RBC) [Entitic vol] 39.7 fL 35.1-43.9 [facility] Hematocrit Auto (Bld) [Volum e fraction]Ordered By: Johann Lemons on 03-08-2024 Hematocrit (Bld) [Volume fraction] 42.9 % 40-54 [facility] Immature granulocytes/100 WB C Auto (Bld)Ordered By: Johann Lemons on 03-08-2024 Immature granulocytes/100 WBC (Bld) 0.400 % 0.0-0.9 [facility] Comment on above: IG% - Immature Granu locytes (promyelocytes, myelocytes and metamyelocytes) > 1% indicates that a LEFT SHIFT is Present. Laboratory - Chemistry and C hemistry - challengeOrdered By: Johann Lemons on 03-08-2024 ALP [Catalytic activity/Vol] 84 U/L 45-117 [facility] ALT [Catalytic activity/Vol] 22 U/L 16-61 [facility] CO2 [Moles/Vol] 31.0 mmol/L 21.0-32.0 [facility] Globulin (S) [Mass/Vol] 3.5 g/dL 2.2-4.2 [facility] Lipase [Catalytic activity/Vol] 17 U/L 13-75 [facility] Comment on above: Please note:LIPASE r evised reference range effective 23. New Lipase methodology. Expected to produce lower values than the previous assay method. NEW Reference Range: 13 - 75 U/L Urea nitrogen/Creatinine [Mass ratio] 16.7 mg/mg 10-20 [facility] - Hematology and Cell countsOrdered By: Johann Lemons on 03-08-2024 MCH (RBC) [Entitic mass] 28.4 pg 27.0-32.0 [facility] MCHC (RBC) [Mass/Vol] 34.5 g/dL 32-36 [facility] Nucleated RBC/100 WBC (Bld) [Ratio] 0 % 0-5 [facility] Platelet mean volume (Bld) [Entitic vol] 9.6 fL 6.2-12.0 [facility] Platelets (Bld) [#/Vol] 194 10*3/uL 150-450 [facility] No Panel InformationOrdered By: Johann Lemons on 03-08-2024 Estimated Creatinine Clearance Calc 99.26 ml/min [facility] Estimated GFR (MDRD) Amer 102 mL/min >60 [facility] Comment on above: GFR Calc Estimated GFR (MDRD) Non-Af Amer 84 mL/min >60 [facility] Comment on above: Non- GFR Calc RBC Auto (Bld) [#/Vol]Ordere d By: Johann Lemons on 03-08-2024 RBC (Bld) [#/Vol] 5.22 10*6/uL 4.6-6.2 [facility] Serum or plasma calcium yayo urement (mass/volume)Ordered By: Johann Lemons on 03-08-2024 Calcium [Mass/Vol] 9.5 mg/dL 8.5-10.1 [facility] Serum or plasma creatinine m easurement (mass/volume)Ordered By: Johann Lemons on 03-08-2024 Creatinine [Mass/Vol] 0.96 mg/dL 0.70-1.30 [facility] Comment on above: The validity of the calculated GFR & GFRAA in patients over 70 years has not been determined. Clinical correlation is essential. Serum or plasma urea nitroge n measurement (mass/volume)Ordered By: Johann Lemons on 03-08-2024 Urea nitrogen [Mass/Vol] 16 mg/dL 7-18 [facility] Thin prep Papanicolaou smear with manual screeningOrdered By: Johann Lemons on 03-08-2024 Thin prep Papanicolaou smear with manual screening 3.7 g/dL 3.2-5.0 [facility] Thin prep Papanicolaou smear with manual screening 12 U/L 15-37 [facility] Thin prep Papanicolaou smear with manual screening 6 5-15 [facility] Absolute lymphocyte countOrd ered By: Keenan Wu on 02-07-2024 Lymphocytes Auto (Unsp spec) [#/Vol] 1.71 10*3/uL 0.83-4.51 [facility] Automated lymphocyte count a s percentage of total leukocytesOrdered By: Keenan Wu on 02-07-2024 Lymphocytes/100 WBC Auto (Unsp spec) 17.4 % 19-41 [facility] Basophil percentageOrdered B y: Keenan Wu on 02-07-2024 Basophil percentage 0 SEEN /hpf 0-5 [facility] Basophils/100 WBC (Bld) 0.5 % 0-1 [facility] Bilirubin [Mass/Vol] 0.60 mg/dL 0.20-1.00 [facility] Comment on above: For patients on eltr ombopag therapy, use of Dimension Hubbell TBIL is not recommended. Chloride [Moles/Vol] 98 mmol/L 98-107 [facility] Eosinophils/100 WBC (Bld) 3.1 % 0-5 [facility] Glucose [Mass/Vol] 461 mg/dL 74-106 [facility] Comment on above: Critical Result(s) C alled at: 21:52:34 02/07/2024 by: GLORIA MORA TO MMARTIN2. Results read back by same.Glucose result greater than or equal to 200 mg/dLsuggests DIABETES MELLITUS per A.D.A. criteria. Hemoglobin (Bld) [Mass/Vol] 15.4 g/dL 13.0-16.5 [facility] Monocytes/100 WBC (Bld) 5.4 % 0-10 [facility] Neutrophils (Bld) [#/Vol] 7.2 10*3/uL 2.0-7.7 [facility] Neutrophils/100 WBC (Bld) 73.2 % 47-70 [facility] Potassium [Moles/Vol] 3.9 mmol/L 3.5-5.1 [facility] Protein [Mass/Vol] 7.5 g/dL 6.4-8.2 [facility] Sodium [Moles/Vol] 134 mmol/L 136-145 [facility] WBC (Bld) [#/Vol] 9.9 10*3/uL 4.4-11.0 [facility] Bilirubin Test strip Ql (U)O rdered By: Keenan Wu on 02-07-2024 Bilirubin Ql (U) Negative Negative [facility] Determination of erythrocyte mean corpuscular volume (MCV)Ordered By: Keenan Wu on 02-07-2024 MCV (RBC) [Entitic vol] 82.1 fL 80-94 [facility] Erythrocyte distribution wid th ratioOrdered By: Keenan Wu on 02-07-2024 Erythrocyte distribution width (RBC) [Ratio] 13.6 % 11.6-14.6 [facility] Erythrocyte distribution wid th standard deviationOrdered By: Keenan Wu on 02-07-2024 Erythrocyte distribution width (RBC) [Entitic vol] 40.1 fL 35.1-43.9 [facility] Hematocrit Auto (Bld) [Volum e fraction]Ordered By: Keenan Wu on 02-07-2024 Hematocrit (Bld) [Volume fraction] 44.1 % 40-54 [facility] Immature granulocytes/100 WB C Auto (Bld)Ordered By: Keenan Wu on 02-07-2024 Immature granulocytes/100 WBC (Bld) 0.400 % 0.0-0.9 [facility] Comment on above: IG% - Immature Granu locytes (promyelocytes, myelocytes and metamyelocytes) > 1% indicates that a LEFT SHIFT is Present. Ketones Test strip Ql (U)Ord ered By: Keenan Wu on 02-07-2024 Ketones Ql (U) Negative Negative [facility] - Chemistry and C hemistry - challengeOrdered By: Keenan Wu on 02-07-2024 Albumin/Globulin [Mass ratio] 1.1 {ratio} 0.9-2.4 [facility] ALP [Catalytic activity/Vol] 105 U/L 45-117 [facility] ALT [Catalytic activity/Vol] 20 U/L 16-61 [facility] CO2 [Moles/Vol] 30.0 mmol/L 21.0-32.0 [facility] Globulin (S) [Mass/Vol] 3.6 g/dL 2.2-4.2 [facility] Urea nitrogen/Creatinine [Mass ratio] 17.4 mg/mg 10-20 [facility] - Drug toxicology Ordered By: Keenan Wu on 02-07-2024 Amphetamines Ql (U) Negative <1000 ng/mL [facility] Benzodiazepines Ql (U) Negative < 200 ng/mL [facility] Cannabinoids Screen Ql (U) Negative < 50 ng/mL [facility] Cocaine Ql (U) Negative < 300 ng/mL [facility] Opiates Ql (U) Negative < 300 ng/mL [facility] - Hematology and Cell countsOrdered By: Keenan Wu on 02-07-2024 MCH (RBC) [Entitic mass] 28.7 pg 27.0-32.0 [facility] MCHC (RBC) [Mass/Vol] 34.9 g/dL 32-36 [facility] Nucleated RBC/100 WBC (Bld) [Ratio] 0 % 0-5 [facility] Platelet mean volume (Bld) [Entitic vol] 9.6 fL 6.2-12.0 [facility] Platelets (Bld) [#/Vol] 255 10*3/uL 150-450 [facility] Mucus LM Ql (Urine sed)Order ed By: Keenan Wu on 02-07-2024 Mucus Ql (Urine sed) 0 SEEN /hpf [facility] Nitrite Test strip Ql (U)Ord ered By: Keenan Wu on 02-07-2024 Nitrite Ql (U) Negative Negative [facility] No Panel InformationOrdered By: Keenan Wu on 02-07-2024 Ethyl Alcohol Level < 3.0 mg/dL [facility] Comment on above: The serum:whole bloo d ethanol ratio is approximately 1.14and varies slightly with hematocrit. Medical Alcohol reference interval and critical value innon-tolerant individuals; 50 - 100 Impairment 100 Intoxication 100 - 250 Severe Poisoning 250 - 400 Deep/possible fatal coma MDMA (Ecstasy) Screen Negative < 500 ng/mL [facility] Urine Barbiturates Screen Negative < 200 ng/mL [facility] Urine Drug Screen Comment [facility] Comment on above: CONFIRMATORY TESTING FOR [...] Methadone Screen Negative < 300 ng/mL [facility] Urine RBC 0 SEEN /hpf 0-5 [facility] Estimated Creatinine Clearance Calc 87.42 ml/min [facility] Estimated GFR (MDRD) Amer 88 mL/min >60 [facility] Comment on above: GFR Calc Estimated GFR (MDRD) Non-Af Amer 72 mL/min >60 [facility] Comment on above: Non- GFR Calc Protein Test strip Ql (U)Ord ered By: Keenan Wu on 02-07-2024 Protein Ql (U) 15 mg/dl Negative [facility] RBC Auto (Bld) [#/Vol]Ordere d By: Keenan Wu on 02-07-2024 RBC (Bld) [#/Vol] 5.37 10*6/uL 4.6-6.2 [facility] Serum or plasma calcium yayo urement (mass/volume)Ordered By: Keenan Wu on 02-07-2024 Calcium [Mass/Vol] 10.2 mg/dL 8.5-10.1 [facility] Serum or plasma creatinine m easurement (mass/volume)Ordered By: Keenan Wu on 02-07-2024 Creatinine [Mass/Vol] 1.09 mg/dL 0.70-1.30 [facility] Comment on above: The validity of the calculated GFR & GFRAA in patients over 70 years has not been determined. Clinical correlation is essential. Serum or plasma urea nitroge n measurement (mass/volume)Ordered By: Keenan Wu on 02-07-2024 Urea nitrogen [Mass/Vol] 19 mg/dL 7-18 [facility] Squamous epithelial cells de tection in urine sediment by light microscopyOrdered By: Keenan Wu on 02-07-2024 Epithelial cells.squamous LM Ql (Urine sed) 0 SEEN /hpf 0-5 [facility] Thin prep Papanicolaou smear with manual screeningOrdered By: Keenan Wu on 02-07-2024 Thin prep Papanicolaou smear with manual screening 379 mg/dL 74-106 [facility] Comment on above: MANAGEMENT OF PATIEN T CARE PER NURSING PROTOCOL Thin prep Papanicolaou smear with manual screening 3.9 g/dL 3.2-5.0 [facility] Thin prep Papanicolaou smear with manual screening 12 U/L 15-37 [facility] Thin prep Papanicolaou smear with manual screening 6 5-15 [facility] Urine blood detectionOrdered By: Keenan Wu on 02-07-2024 RBC Ql (U) Negative Negative [facility] Urine clarityOrdered By: Osvaldo Wu on 02-07-2024 Clarity (U) Clear Clear [facility] Urine color determinationOrd ered By: Keenan Wu on 02-07-2024 Color (U) Yellow Yellow [facility] Urine glucose detectionOrder ed By: Keenan Wu on 02-07-2024 Glucose Ql (U) 1000 mg/dl Normal [facility] Urine leukocyte esterase det ection by dipstickOrdered By: Keenan Wu on 02-07-2024 Leukocyte esterase Test strip Ql (U) Negative Negative [facility] Urine pHOrdered By: Keenan overton on 02-07-2024 pH (U) 6.0 [pH] 5.0 - 8.0 [facility] Urine phencyclidine (PCP) de tectionOrdered By: Keenan Wu on 02-07-2024 Phencyclidine Ql (U) Negative < 25 ng/mL [facility] Urine sediment bacteria coun t by microscopy (number/high power field)Ordered By: Keenan Wu on 02-07-2024 Bacteria LM.HPF (Urine sed) [#/Area] 0 /[HPF] None Seen [facility] Urine specific gravity measu rementOrdered By: Keenan Wu on 02-07-2024 Specific gravity (U) [Rel density] 1.015 1.002-1.030 [facility] Urine urobilinogen measureme ntOrdered By: Keenan Wu on 02-07-2024 Urobilinogen Ql (U) Normal mg/dl Normal [facility] Amorphous sediment detection in urine sediment by light microscopyOrdered By: Shania Disla on 01-27-2024 Amorphous sediment LM Ql (Urine sed) 0 SEEN [facility] Basophil percentageOrdered B y: Shania Disla on 01-27-2024 Basophil percentage 0 SEEN /hpf 0-5 [facility] Bilirubin Test strip Ql (U)O rdered By: Shania Disla on 01-27-2024 Bilirubin Ql (U) Negative Negative [facility] Calcium oxalate crystals det ection in urine sediment by light microscopyOrdered By: Shania Disla on 01-27-2024 Calcium oxalate crystals LM Ql (Urine sed) 0 SEEN /hpf [facility] Hyaline casts LM.LPF (Urine sed) [#/Area]Ordered By: Shania Disla on 01-27-2024 Hyaline casts (Urine sed) [#/Area] 0 /[LPF] 0-5 [facility] Ketones Test strip Ql (U)Ord ered By: Shania Disla on 01-27-2024 Ketones Ql (U) Negative Negative [facility] Magnesium ammonium phosphate crystal detectionOrdered By: Shania Disla on 01-27-2024 Triple phosphate crystals LM Ql (Urine sed) 0 SEEN /hpf [facility] Mucus LM Ql (Urine sed)Order ed By: Shania Disla on 01-27-2024 Mucus Ql (Urine sed) 0 SEEN /hpf [facility] Nitrite Test strip Ql (U)Ord ered By: Shania Disla on 01-27-2024 Nitrite Ql (U) Negative Negative [facility] No Panel InformationOrdered By: Shania Disla on 01-27-2024 Urine RBC 0 SEEN /hpf 0-5 [facility] Protein Test strip Ql (U)Ord ered By: Shania Disla on 01-27-2024 Protein Ql (U) Negative Negative [facility] Squamous epithelial cells de tection in urine sediment by light microscopyOrdered By: Shania Disla on 01-27-2024 Epithelial cells.squamous LM Ql (Urine sed) 5-10 SEEN /hpf 0-5 [facility] Thin prep Papanicolaou smear with manual screeningOrdered By: Shania Disla on 01-27-2024 Thin prep Papanicolaou smear with manual screening 277 mg/dL 74-106 [facility] Comment on above: MANAGEMENT OF PATIEN T CARE PER NURSING PROTOCOL Urine blood detectionOrdered By: Shania Disla on 01-27-2024 RBC Ql (U) Negative Negative [facility] Urine clarityOrdered By: Anamaria Disla on 01-27-2024 Clarity (U) Clear Clear [facility] Urine coarse granular cast d etectionOrdered By: Shania Disla on 01-27-2024 Coarse Granular Casts LM Ql (Urine sed) 0 SEEN /lpf 0-5 /lpf [facility] Urine color determinationOrd ered By: Shania Disla on 01-27-2024 Color (U) Straw Yellow [facility] Urine glucose detectionOrder ed By: Shania Disla on 01-27-2024 Glucose Ql (U) 1000 mg/dl Normal [facility] Urine leukocyte esterase det ection by dipstickOrdered By: Shania Disla on 01-27-2024 Leukocyte esterase Test strip Ql (U) Negative Negative [facility] Urine pHOrdered By: Shania Disla on 01-27-2024 pH (U) 6.0 [pH] 5.0 - 8.0 [facility] Urine sediment Trichomonas s pecies count by microscopy (number/low power field)Ordered By: Shania Disla on 01-27-2024 Trichomonas sp LM.LPF (Urine sed) [#/Area] 0 SEEN /hpf None Seen [facility] Urine sediment bacteria coun t by microscopy (number/high power field)Ordered By: Shania Disla on 01-27-2024 Bacteria LM.HPF (Urine sed) [#/Area] 0 /[HPF] None Seen [facility] Urine sediment erythrocyte c ast detection by light microscopyOrdered By: Shania Disla on 01-27-2024 RBC casts LM Ql (Urine sed) 0 SEEN /lpf None Seen [facility] Urine sediment fine granular cast count by microscopy (number/low power field)Ordered By: Shania Disla on 01-27-2024 Fine Granular Casts LM.LPF (Urine sed) [#/Area] 0 SEEN /lpf 0-5 [facility] Urine sediment leukocyte pooja t count by microscopy (number/low power field)Ordered By: Shania Disla on 01-27-2024 WBC casts LM.LPF (Urine sed) [#/Area] 0 SEEN /lpf None Seen [facility] Urine sediment unidentified crystal count by microscopy (number/high powered field)Ordered By: Shaina Disla on 01-27-2024 Unidentified crystals LM.HPF (Urine sed) [#/Area] 0 SEEN /hpf None Seen [facility] Urine sediment uric acid cry stal count by microscopy (number/high power field)Ordered By: Shania Disla on 01-27-2024 Urate crystals LM.HPF (Urine sed) [#/Area] 0 /[HPF] [facility] Urine sediment yeast count b y microscopy (number/high powered field)Ordered By: Shania Disla on 01-27-2024 Yeast LM.HPF (Urine sed) [#/Area] RARE /hpf None Seen [facility] Urine specific gravity measu rementOrdered By: Shania Disla on 01-27-2024 Specific gravity (U) [Rel density] 1.015 1.002-1.030 [facility] Urine urobilinogen measureme ntOrdered By: Shania Disla on 01-27-2024 Urobilinogen Ql (U) Normal mg/dl Normal [facility] Waxy casts detection in urin e sediment by light microscopyOrdered By: Shania Disla on 01-27-2024 Waxy casts LM Ql (Urine sed) 0 SEEN /lpf None Seen [facility] Absolute lymphocyte countOrd ered By: Shania Disla on 01-26-2024 Lymphocytes Auto (Unsp spec) [#/Vol] 0.82 10*3/uL 0.83-4.51 [facility] Automated lymphocyte count a s percentage of total leukocytesOrdered By: Shania Disla on 01-26-2024 Lymphocytes/100 WBC Auto (Unsp spec) 8.4 % 19-41 [facility] Basophil percentageOrdered B y: Shania Disla on 01-26-2024 Basophils/100 WBC (Bld) 0.2 % 0-1 [facility] Bilirubin [Mass/Vol] 0.70 mg/dL 0.20-1.00 [facility] Comment on above: For patients on eltr ombopag therapy, use of Dimension Hubbell TBIL is not recommended. Chloride [Moles/Vol] 100 mmol/L 98-107 [facility] Eosinophils/100 WBC (Bld) 1.8 % 0-5 [facility] Glucose [Mass/Vol] 553 mg/dL 74-106 [facility] Comment on above: Glucose result great er than or equal to 200 mg/dLsuggests DIABETES MELLITUS per A.D.A. criteria. Hemoglobin (Bld) [Mass/Vol] 14.3 g/dL 13.0-16.5 [facility] Monocytes/100 WBC (Bld) 6.3 % 0-10 [facility] Neutrophils (Bld) [#/Vol] 8.1 10*3/uL 2.0-7.7 [facility] Neutrophils/100 WBC (Bld) 83.0 % 47-70 [facility] Potassium [Moles/Vol] 4.2 mmol/L 3.5-5.1 [facility] Protein [Mass/Vol] 6.8 g/dL 6.4-8.2 [facility] Sodium [Moles/Vol] 135 mmol/L 136-145 [facility] Comment on above: Critical Result(s) C alled at: 00:43:16 01/27/2024 by: Britney CHACON. Results read back by same. WBC (Bld) [#/Vol] 9.8 10*3/uL 4.4-11.0 [facility] Determination of erythrocyte mean corpuscular volume (MCV)Ordered By: Shania Disla on 01-26-2024 MCV (RBC) [Entitic vol] 82.4 fL 80-94 [facility] Direct bilirubinOrdered By: Shania Disla on 01-26-2024 Bilirubin.direct [Mass/Vol] 0.20 mg/dL 0.00-0.30 [facility] Erythrocyte distribution wid th ratioOrdered By: Shania Disla on 01-26-2024 Erythrocyte distribution width (RBC) [Ratio] 13.4 % 11.6-14.6 [facility] Erythrocyte distribution wid th standard deviationOrdered By: Shania Disla on 01-26-2024 Erythrocyte distribution width (RBC) [Entitic vol] 39.9 fL 35.1-43.9 [facility] Hematocrit Auto (Bld) [Volum e fraction]Ordered By: Shania Disla on 01-26-2024 Hematocrit (Bld) [Volume fraction] 40.8 % 40-54 [facility] Immature granulocytes/100 WB C Auto (Bld)Ordered By: Shania Disla on 01-26-2024 Immature granulocytes/100 WBC (Bld) 0.300 % 0.0-0.9 [facility] Comment on above: IG% - Immature Granu locytes (promyelocytes, myelocytes and metamyelocytes) > 1% indicates that a LEFT SHIFT is Present. Laboratory - Chemistry and C hemistry - challengeOrdered By: Shania Disla on 01-26-2024 ALP [Catalytic activity/Vol] 71 U/L 45-117 [facility] ALT [Catalytic activity/Vol] 24 U/L 16-61 [facility] CO2 [Moles/Vol] 30.0 mmol/L 21.0-32.0 [facility] Globulin (S) [Mass/Vol] 3.2 g/dL 2.2-4.2 [facility] Urea nitrogen/Creatinine [Mass ratio] 12.5 mg/mg 10-20 [facility] Laboratory - Hematology and Cell countsOrdered By: Shania Disla on 01-26-2024 MCH (RBC) [Entitic mass] 28.9 pg 27.0-32.0 [facility] MCHC (RBC) [Mass/Vol] 35.0 g/dL 32-36 [facility] Nucleated RBC/100 WBC (Bld) [Ratio] 0 % 0-5 [facility] Platelet mean volume (Bld) [Entitic vol] 9.4 fL 6.2-12.0 [facility] Platelets (Bld) [#/Vol] 167 10*3/uL 150-450 [facility] Laboratory - Microbiology an d Antimicrobial susceptibilityOrdered By: Shania Disla on 01-26-2024 SARS-CoV-2 (COVID-19) RNA IOANA+probe Ql (Unsp spec) [facility] No Panel InformationOrdered By: Shania Disla on 01-26-2024 Estimated Creatinine Clearance Calc 85.08 ml/min [facility] Estimated GFR (MDRD) Amer 85 mL/min >60 [facility] Comment on above: GFR Calc Estimated GFR (MDRD) Non-Af Amer 70 mL/min >60 [facility] Comment on above: Non- GFR Calc RBC Auto (Bld) [#/Vol]Ordere d By: Shania Disla on 01-26-2024 RBC (Bld) [#/Vol] 4.95 10*6/uL 4.6-6.2 [facility] Serum or plasma acetone yayo urement (mass/volume)Ordered By: Shania Disla on 01-26-2024 Acetone [Mass/Vol] Negative NEG [facility] Serum or plasma calcium yayo urement (mass/volume)Ordered By: Shania Disla on 01-26-2024 Calcium [Mass/Vol] 9.3 mg/dL 8.5-10.1 [facility] Serum or plasma creatinine m easurement (mass/volume)Ordered By: Shania Disla on 01-26-2024 Creatinine [Mass/Vol] 1.12 mg/dL 0.70-1.30 [facility] Comment on above: The validity of the calculated GFR & GFRAA in patients over 70 years has not been determined. Clinical correlation is essential. Serum or plasma urea nitroge n measurement (mass/volume)Ordered By: Shania Disla on 01-26-2024 Urea nitrogen [Mass/Vol] 14 mg/dL 7-18 [facility] Thin prep Papanicolaou smear with manual screeningOrdered By: Shania Disla on 01-26-2024 Thin prep Papanicolaou smear with manual screening 3.6 g/dL 3.2-5.0 [facility] Thin prep Papanicolaou smear with manual screening 16 U/L 15-37 [facility] Thin prep Papanicolaou smear with manual screening 5 5-15 [facility] Erythrocyte sedimentation ra teOrdered By: Linden Chavez on 01-05-2024 ESR (Bld) [Velocity] 3 mm/h 0-20 [facility] No Panel InformationOrdered By: Linden Chavez on 01-05-2024 C-Reactive Protein Extended Range 3.41 mg/L 0.0-3.0 [facility] Comment on above: C-Reactive Protein ( CRP) provides useful information for thediagnosis, therapy and monitoring of inflammatory processesand associated diseases. For the evaluation of Relative Riskfor Cardiovascular Disease, a High Sensitivity CRP (HSCRP)should be ordered. Endomysial IgA Antibody Negative Negative [facility] Serum or plasma IgA measurem ent (mass/volume)Ordered By: Linden Chavez on 01-05-2024 IgA [Mass/Vol] 363 mg/dL 61-437 [facility] Comment on above: Performed at: [address] [id number] Director: Rasheed Denney PhD, Phone: [phone] Serum or plasma thyroid stim ulating hormone (TSH) measurement (units/volume)Ordered By: Linden Chavez on 01-05-2024 TSH Qn 8.45 uIU/mL 0.358-3.74 [facility] Serum tissue transglutaminas e IgA antibody assay (units/volume)Ordered By: Linden Chavez on 01-05-2024 tTG IgA Qn (S) <2 U/mL 0-3 [facility] Comment on above: Negative 0 - 3 Weak Positive 4 - 10 Positive >10 Tissue Transglutaminase (tTG) has been identified as the endomysial antigen. Studies have demonstr- ated that endomysial IgA antibodies have over 99% specificity for gluten sensitive enteropathy. Whole blood hemoglobin A1c/t otal hemoglobin ratio (mass fraction)Ordered By: Linden Chavez on 01-05-2024 HbA1c (Bld) [Mass fraction] 12.2 % 3.8-5.6 [facility] Comment on above: Normal < 5.7 % Predi abetic 5.7 - 6.4 % Diabetic >or= 6.5 % Please note range changes. Basophil percentageOrdered B y: Shaniapenny Disla on 12-25-2023 Chloride [Moles/Vol] 102 mmol/L 98-107 [facility] Glucose [Mass/Vol] 476 mg/dL 74-106 [facility] Comment on above: Critical Result(s) C alled at: 09:52:20 12/25/2023 by: Santana Ochoa RN (ER). Results read back by same.Glucose result greater than or equal to 200 mg/dLsuggests DIABETES MELLITUS per A.D.A. criteria. Potassium [Moles/Vol] 3.8 mmol/L 3.5-5.1 [facility] Sodium [Moles/Vol] 134 mmol/L 136-145 [facility] Laboratory - Chemistry and C hemistry - challengeOrdered By: Shania Disla on 12-25-2023 CO2 [Moles/Vol] 28.0 mmol/L 21.0-32.0 [facility] Urea nitrogen/Creatinine [Mass ratio] 16.5 mg/mg 10-20 [facility] No Panel InformationOrdered By: Shania Disla on 12-25-2023 Estimated Creatinine Clearance Calc 82.86 ml/min [facility] Estimated GFR (MDRD) Amer 82 mL/min >60 [facility] Comment on above: GFR Calc Estimated GFR (MDRD) Non-Af Amer 68 mL/min >60 [facility] Comment on above: Non- GFR Calc Serum or plasma calcium yayo urement (mass/volume)Ordered By: Shania Disla on 12-25-2023 Calcium [Mass/Vol] 9.3 mg/dL 8.5-10.1 [facility] Serum or plasma creatinine m easurement (mass/volume)Ordered By: Shania Disla on 12-25-2023 Creatinine [Mass/Vol] 1.15 mg/dL 0.70-1.30 [facility] Comment on above: The validity of the calculated GFR & GFRAA in patients over 70 years has not been determined. Clinical correlation is essential. Serum or plasma urea nitroge n measurement (mass/volume)Ordered By: Shania Disla on 12-25-2023 Urea nitrogen [Mass/Vol] 19 mg/dL 7-18 [facility] Thin prep Papanicolaou smear with manual screeningOrdered By: Shania Disla on 12-25-2023 Thin prep Papanicolaou smear with manual screening 354 mg/dL 74-106 [facility] Comment on above: MANAGEMENT OF PATIEN T CARE PER NURSING PROTOCOL Thin prep Papanicolaou smear with manual screening 4 5-15 [facility] Absolute lymphocyte countOrd ered By: Barry Mathew on 11-22-2023 Lymphocytes Auto (Unsp spec) [#/Vol] 1.40 10*3/uL 0.83-4.51 [facility] Automated lymphocyte count a s percentage of total leukocytesOrdered By: Barry Mathew on 11-22-2023 Lymphocytes/100 WBC Auto (Unsp spec) 18.9 % 19-41 [facility] Basophil percentageOrdered B y: Barry aMthew on 11-22-2023 Basophil percentage 0-5 SEEN /hpf 0-5 [facility] Basophils/100 WBC (Bld) 0.4 % 0-1 [facility] Bilirubin [Mass/Vol] 0.80 mg/dL 0.20-1.00 [facility] Comment on above: For patients on eltr ombopag therapy, use of Dimension Hubbell TBIL is not recommended. Chloride [Moles/Vol] 101 mmol/L 98-107 [facility] Eosinophils/100 WBC (Bld) 4.5 % 0-5 [facility] Glucose [Mass/Vol] 357 mg/dL 74-106 [facility] Comment on above: Glucose result great er than or equal to 200 mg/dLsuggests DIABETES MELLITUS per A.D.A. criteria. Hemoglobin (Bld) [Mass/Vol] 15.7 g/dL 13.0-16.5 [facility] Monocytes/100 WBC (Bld) 5.0 % 0-10 [facility] Neutrophils (Bld) [#/Vol] 5.3 10*3/uL 2.0-7.7 [facility] Neutrophils/100 WBC (Bld) 70.9 % 47-70 [facility] Potassium [Moles/Vol] 3.8 mmol/L 3.5-5.1 [facility] Protein [Mass/Vol] 7.6 g/dL 6.4-8.2 [facility] Sodium [Moles/Vol] 137 mmol/L 136-145 [facility] WBC (Bld) [#/Vol] 7.4 10*3/uL 4.4-11.0 [facility] Bilirubin Test strip Ql (U)O rdered By: Barry Mathew on 11-22-2023 Bilirubin Ql (U) Negative Negative [facility] Determination of erythrocyte mean corpuscular volume (MCV)Ordered By: Barry Mathew on 11-22-2023 MCV (RBC) [Entitic vol] 81.6 fL 80-94 [facility] Erythrocyte distribution wid th ratioOrdered By: Barry Mathew on 11-22-2023 Erythrocyte distribution width (RBC) [Ratio] 13.4 % 11.6-14.6 [facility] Erythrocyte distribution wid th standard deviationOrdered By: Barry Mathew on 11-22-2023 Erythrocyte distribution width (RBC) [Entitic vol] 39.2 fL 35.1-43.9 [facility] Hematocrit Auto (Bld) [Volum e fraction]Ordered By: Barry Mathew on 11-22-2023 Hematocrit (Bld) [Volume fraction] 45.6 % 40-54 [facility] Immature granulocytes/100 WB C Auto (Bld)Ordered By: Barry Mathew on 11-22-2023 Immature granulocytes/100 WBC (Bld) 0.300 % 0.0-0.9 [facility] Comment on above: IG% - Immature Granu locytes (promyelocytes, myelocytes and metamyelocytes) > 1% indicates that a LEFT SHIFT is Present. Ketones Test strip Ql (U)Ord ered By: Barry Mathew on 11-22-2023 Ketones Ql (U) Negative Negative [facility] Laboratory - Chemistry and C hemistry - challengeOrdered By: Barry Mathew on 11-22-2023 Albumin/Globulin [Mass ratio] 0.9 {ratio} 0.9-2.4 [facility] ALP [Catalytic activity/Vol] 100 U/L 45-117 [facility] ALT [Catalytic activity/Vol] 16 U/L 16-61 [facility] CO2 [Moles/Vol] 33.0 mmol/L 21.0-32.0 [facility] Globulin (S) [Mass/Vol] 3.9 g/dL 2.2-4.2 [facility] Urea nitrogen/Creatinine [Mass ratio] 13.9 mg/mg 10-20 [facility] Laboratory - Hematology and Cell countsOrdered By: Barry Mathew on 11-22-2023 MCH (RBC) [Entitic mass] 28.1 pg 27.0-32.0 [facility] MCHC (RBC) [Mass/Vol] 34.4 g/dL 32-36 [facility] Nucleated RBC/100 WBC (Bld) [Ratio] 0 % 0-5 [facility] Platelets (Bld) [#/Vol] 220 10*3/uL 150-450 [facility] Mucus LM Ql (Urine sed)Order ed By: Barry Mathew on 11-22-2023 Mucus Ql (Urine sed) RARE /hpf [facility] Nitrite Test strip Ql (U)Ord ered By: Barry Mathew on 11-22-2023 Nitrite Ql (U) Negative Negative [facility] No Panel InformationOrdered By: Barry Mathew on 11-22-2023 Urine RBC 0 SEEN /hpf 0-5 [facility] Estimated Creatinine Clearance Calc 101.37 ml/min [facility] Estimated GFR (MDRD) Amer 105 mL/min >60 [facility] Comment on above: GFR Calc Estimated GFR (MDRD) Non-Af Amer 86 mL/min >60 [facility] Comment on above: Non- GFR Calc Troponin I High Sensitivity 5 pg/mL 3.0-78.0 [facility] Comment on above: Please Note: New Kira t Units and Gender Specific Reference Ranges. For more information see Policy Stat Procedure Hubbell High Sensitivity Troponin (TNIH) and attachments. Platelet mean volume Kamlesh-Ec ker (Bld) [Entitic vol]Ordered By: Barry Mathew on 11-22-2023 Platelet mean volume (Bld) [Entitic vol] 9.3 fL 6.2-12.0 [facility] Protein Test strip Ql (U)Ord ered By: Barry Mathew on 11-22-2023 Protein Ql (U) 15 mg/dl Negative [facility] RBC Auto (Bld) [#/Vol]Ordere d By: Barry Mathew on 11-22-2023 RBC (Bld) [#/Vol] 5.59 10*6/uL 4.6-6.2 [facility] Serum or plasma calcium yayo urement (mass/volume)Ordered By: Barry Mathew on 11-22-2023 Calcium [Mass/Vol] 10.2 mg/dL 8.5-10.1 [facility] Serum or plasma creatinine m easurement (mass/volume)Ordered By: Barry Mathew on 11-22-2023 Creatinine [Mass/Vol] 0.94 mg/dL 0.70-1.30 [facility] Comment on above: The validity of the calculated GFR & GFRAA in patients over 70 years has not been determined. Clinical correlation is essential. Serum or plasma urea nitroge n measurement (mass/volume)Ordered By: Barry Mathew on 11-22-2023 Urea nitrogen [Mass/Vol] 13 mg/dL 7-18 [facility] Squamous epithelial cells de tection in urine sediment by light microscopyOrdered By: Barry Mathew on 11-22-2023 Epithelial cells.squamous LM Ql (Urine sed) 0-5 SEEN /hpf 0-5 [facility] Thin prep Papanicolaou smear with manual screeningOrdered By: Barry Mathew on 11-22-2023 Thin prep Papanicolaou smear with manual screening 3.7 g/dL 3.2-5.0 [facility] Thin prep Papanicolaou smear with manual screening 9 U/L 15-37 [facility] Thin prep Papanicolaou smear with manual screening 3 5-15 [facility] Urine blood detectionOrdered By: Barry Mathew on 11-22-2023 RBC Ql (U) Negative Negative [facility] Urine clarityOrdered By: Silva Mathew on 11-22-2023 Clarity (U) Sl. Cloudy Clear [facility] Urine color determinationOrd ered By: Barry Mathew on 11-22-2023 Color (U) Yellow Yellow [facility] Urine glucose detectionOrder ed By: Barry Mathew on 11-22-2023 Glucose Ql (U) 1000 mg/dl Normal [facility] Urine leukocyte esterase det ection by dipstickOrdered By: Barry Mathew on 11-22-2023 Leukocyte esterase Test strip Ql (U) 25 /ul Negative [facility] Urine pHOrdered By: Barry otoole on 11-22-2023 pH (U) 5.0 [pH] 5.0 - 8.0 [facility] Urine sediment bacteria coun t by microscopy (number/high power field)Ordered By: Barry Mathew on 11-22-2023 Bacteria LM.HPF (Urine sed) [#/Area] RARE /hpf None Seen [facility] Urine sediment yeast count b y microscopy (number/high powered field)Ordered By: Barry Mathew on 11-22-2023 Yeast LM.HPF (Urine sed) [#/Area] RARE /hpf None Seen [facility] Urine specific gravity measu rementOrdered By: Barry Mathew on 11-22-2023 Specific gravity (U) [Rel density] 1.020 1.002-1.030 [facility] Urine urobilinogen measureme ntOrdered By: Barry Mathew on 11-22-2023 Urobilinogen Ql (U) 1 mg/dl Normal [facility] Absolute lymphocyte countOrd ered By: Live Ashley on 10-01-2023 Lymphocytes Auto (Unsp spec) [#/Vol] 1.41 10*3/uL 0.83-4.51 [facility] Basophil percentageOrdered B y: Live Ashley on 10-01-2023 Basophils/100 WBC (Bld) 0.3 % 0-1 [facility] Chloride [Moles/Vol] 105 mmol/L 98-107 [facility] Eosinophils/100 WBC (Bld) 2.2 % 0-5 [facility] Glucose [Mass/Vol] 429 mg/dL 74-106 [facility] Comment on above: Glucose result great er than or equal to 200 mg/dLsuggests DIABETES MELLITUS per A.D.A. criteria. Neutrophils (Bld) [#/Vol] 6.4 10*3/uL 2.0-7.7 [facility] Neutrophils/100 WBC (Bld) 74.6 % 47-70 [facility] Potassium [Moles/Vol] 4.0 mmol/L 3.5-5.1 [facility] Sodium [Moles/Vol] 137 mmol/L 136-145 [facility] WBC (Bld) [#/Vol] 8.6 10*3/uL 4.4-11.0 [facility] Blood erythrocytes count (nu mber/volume)Ordered By: Live Ashley on 10-01-2023 RBC (Bld) [#/Vol] 4.67 10*6/uL 4.6-6.2 [facility] Blood hemoglobin measurement (mass/volume)Ordered By: Live Ashley on 10-01-2023 Hemoglobin (Bld) [Mass/Vol] 13.4 g/dL 13.0-16.5 [facility] Blood lymphocytes/100 leukoc ytesOrdered By: Live Ashley on 10-01-2023 Lymphocytes/100 WBC (Bld) 16.4 % 19-41 [facility] Blood monocytes/100 leukocyt esOrdered By: Live Ashley on 10-01-2023 Monocytes/100 WBC (Bld) 6.3 % 0-10 [facility] Blood platelet mean volumeOr dered By: Live Ashley on 10-01-2023 Platelet mean volume (Bld) [Entitic vol] 9.4 fL 6.2-12.0 [facility] Determination of erythrocyte mean corpuscular volume (MCV)Ordered By: Live Ashley on 10-01-2023 MCV (RBC) [Entitic vol] 84.4 fL 80-94 [facility] Hematocrit Auto (Bld) [Volum e fraction]Ordered By: Live Ashlye on 10-01-2023 Hematocrit (Bld) [Volume fraction] 39.4 % 40-54 [facility] - Chemistry and C hemistry - challengeOrdered By: Live Ashley on 10-01-2023 CO2 [Moles/Vol] 28.0 mmol/L 21.0-32.0 [facility] Urea nitrogen/Creatinine [Mass ratio] 14.9 mg/mg 10-20 [facility] - Hematology and Cell countsOrdered By: Live Ashley on 10-01-2023 Erythrocyte distribution width (RBC) [Entitic vol] 41.7 fL 35.1-43.9 [facility] Erythrocyte distribution width (RBC) [Ratio] 13.7 % 11.6-14.6 [facility] Immature granulocytes/100 WBC (Bld) 0.200 % 0.0-0.9 [facility] Comment on above: IG% - Immature Granu locytes (promyelocytes, myelocytes and metamyelocytes) > 1% indicates that a LEFT SHIFT is Present. MCH (RBC) [Entitic mass] 28.7 pg 27.0-32.0 [facility] Nucleated RBC/100 WBC (Bld) [Ratio] 0 % 0-5 [facility] MCHC Auto (RBC) [Mass/Vol]Or dered By: Live Ashely on 10-01-2023 MCHC (RBC) [Mass/Vol] 34.0 g/dL 32-36 [facility] No Panel InformationOrdered By: Live Ashley on 10-01-2023 Estimated Creatinine Clearance Calc 83.59 ml/min [facility] Estimated GFR (MDRD) Amer 83 mL/min >60 [facility] Comment on above: GFR Calc Estimated GFR (MDRD) Non-Af Amer 69 mL/min >60 [facility] Comment on above: Non- GFR Calc Platelets bldOrdered By: Pankaj Ashley on 10-01-2023 Platelets (Bld) [#/Vol] 211 10*3/uL 150-450 [facility] Serum or plasma calcium yayo urement (mass/volume)Ordered By: Live Ashley on 10-01-2023 Calcium [Mass/Vol] 8.8 mg/dL 8.5-10.1 [facility] Serum or plasma creatinine m easurement (mass/volume)Ordered By: Live Ashley on 10-01-2023 Creatinine [Mass/Vol] 1.14 mg/dL 0.70-1.30 [facility] Comment on above: The validity of the calculated GFR & GFRAA in patients over 70 years has not been determined. Clinical correlation is essential. Serum or plasma urea nitroge n measurement (mass/volume)Ordered By: Live Ashley on 10-01-2023 Urea nitrogen [Mass/Vol] 17 mg/dL 7-18 [facility] Stool gastrointestinal hemog lobin detection by immunologic methodOrdered By: Live Ashley on 10-01-2023 Lower GI hemoglobin IA Ql (Stl) [facility] Lower GI hemoglobin IA Ql (Stl) [facility] Thin prep Papanicolaou smear with manual screeningOrdered By: Live Ashley on 10-01-2023 Thin prep Papanicolaou smear with manual screening 4 5-15 [facility] Absolute lymphocyte countOrd ered By: Barry Mathew on 09-29-2023 Lymphocytes Auto (Unsp spec) [#/Vol] 1.47 10*3/uL 0.83-4.51 [facility] Basophil percentageOrdered B y: Barry Mathew on 09-29-2023 Basophils/100 WBC (Bld) 0.6 % 0-1 [facility] Bilirubin [Mass/Vol] 0.40 mg/dL 0.20-1.00 [facility] Comment on above: For patients on eltr ombopag therapy, use of Dimension Hubbell TBIL is not recommended. Chloride [Moles/Vol] 105 mmol/L 98-107 [facility] Eosinophils/100 WBC (Bld) 1.7 % 0-5 [facility] Glucose [Mass/Vol] 213 mg/dL 74-106 [facility] Comment on above: Glucose result great er than or equal to 200 mg/dLsuggests DIABETES MELLITUS per A.D.A. criteria. Neutrophils (Bld) [#/Vol] 8.5 10*3/uL 2.0-7.7 [facility] Neutrophils/100 WBC (Bld) 78.5 % 47-70 [facility] Potassium [Moles/Vol] 3.9 mmol/L 3.5-5.1 [facility] Protein [Mass/Vol] 7.2 g/dL 6.4-8.2 [facility] Sodium [Moles/Vol] 137 mmol/L 136-145 [facility] WBC (Bld) [#/Vol] 10.9 10*3/uL 4.4-11.0 [facility] Blood erythrocytes count (nu mber/volume)Ordered By: Barry Mathew on 09-29-2023 RBC (Bld) [#/Vol] 4.98 10*6/uL 4.6-6.2 [facility] Blood hemoglobin measurement (mass/volume)Ordered By: Barry Mathew on 09-29-2023 Hemoglobin (Bld) [Mass/Vol] 14.0 g/dL 13.0-16.5 [facility] Blood lymphocytes/100 leukoc ytesOrdered By: Barry Mathew on 09-29-2023 Lymphocytes/100 WBC (Bld) 13.5 % 19-41 [facility] Blood monocytes/100 leukocyt esOrdered By: Barry Mathew on 09-29-2023 Monocytes/100 WBC (Bld) 5.2 % 0-10 [facility] Blood platelet mean volumeOr dered By: Barry Mathew on 09-29-2023 Platelet mean volume (Bld) [Entitic vol] 9.2 fL 6.2-12.0 [facility] Determination of erythrocyte mean corpuscular volume (MCV)Ordered By: Barry Mathew on 09-29-2023 MCV (RBC) [Entitic vol] 82.5 fL 80-94 [facility] Hematocrit Auto (Bld) [Volum e fraction]Ordered By: Barry Mathew on 09-29-2023 Hematocrit (Bld) [Volume fraction] 41.1 % 40-54 [facility] - Chemistry and C hemistry - challengeOrdered By: Barry Mathew on 09-29-2023 ALP [Catalytic activity/Vol] 100 U/L 45-117 [facility] ALT [Catalytic activity/Vol] 14 U/L 16-61 [facility] CO2 [Moles/Vol] 28.0 mmol/L 21.0-32.0 [facility] Globulin (S) [Mass/Vol] 3.7 g/dL 2.2-4.2 [facility] Lipase [Catalytic activity/Vol] 13 U/L 13-75 [facility] Comment on above: Please note:LIPASE r evised reference range effective 23. New Lipase methodology. Expected to produce lower values than the previous assay method. NEW Reference Range: 13 - 75 U/L Urea nitrogen/Creatinine [Mass ratio] 16.5 mg/mg 10-20 [facility] - Hematology and Cell countsOrdered By: Barry Mathew on 09-29-2023 Erythrocyte distribution width (RBC) [Entitic vol] 39.8 fL 35.1-43.9 [facility] Erythrocyte distribution width (RBC) [Ratio] 13.4 % 11.6-14.6 [facility] Immature granulocytes/100 WBC (Bld) 0.500 % 0.0-0.9 [facility] Comment on above: IG% - Immature Granu locytes (promyelocytes, myelocytes and metamyelocytes) > 1% indicates that a LEFT SHIFT is Present. MCH (RBC) [Entitic mass] 28.1 pg 27.0-32.0 [facility] Nucleated RBC/100 WBC (Bld) [Ratio] 0 % 0-[facility] Auto (RBC) [Mass/Vol]Or dered By: Barry Mathew on 09-29-2023 MCHC (RBC) [Mass/Vol] 34.1 g/dL 32-36 [facility] No Panel InformationOrdered By: Barry Mathew on 09-29-2023 Estimated Creatinine Clearance Calc 92.51 ml/min [facility] Estimated GFR (MDRD) Amer 94 mL/min >60 [facility] Comment on above: GFR Calc Estimated GFR (MDRD) Non-Af Amer 77 mL/min >60 [facility] Comment on above: Non- GFR Calc Platelets bldOrdered By: Silva Mathew on 09-29-2023 Platelets (Bld) [#/Vol] 226 10*3/uL 150-450 [facility] Serum or plasma albumin yayo urement (mass/volume)Ordered By: Barry Mathew on 09-29-2023 Albumin [Mass/Vol] 3.5 g/dL 3.2-5.0 [facility] Serum or plasma albumin/glob ulin mass ratioOrdered By: Barry Mathew on 09-29-2023 Albumin/Globulin [Mass ratio] 0.9 {ratio} 0.9-2.4 [facility] Serum or plasma calcium yayo urement (mass/volume)Ordered By: Barry Mathew on 09-29-2023 Calcium [Mass/Vol] 8.7 mg/dL 8.5-10.1 [facility] Serum or plasma creatinine m easurement (mass/volume)Ordered By: Barry Mathew on 09-29-2023 Creatinine [Mass/Vol] 1.03 mg/dL 0.70-1.30 [facility] Comment on above: The validity of the calculated GFR & GFRAA in patients over 70 years has not been determined. Clinical correlation is essential. Serum or plasma urea nitroge n measurement (mass/volume)Ordered By: Barry Mathew on 09-29-2023 Urea nitrogen [Mass/Vol] 17 mg/dL 7-18 [facility] Thin prep Papanicolaou smear with manual screeningOrdered By: Barry Mathew on 09-29-2023 Thin prep Papanicolaou smear with manual screening 9 U/L 15-37 [facility] Thin prep Papanicolaou smear with manual screening 4 5-15 [facility] Absolute lymphocyte countOrd ered By: Ar Calle on 07-29-2023 Lymphocytes Auto (Unsp spec) [#/Vol] 1.27 10*3/uL 0.83-4.51 [facility] Basophil percentageOrdered B y: Ar Calle on 07-29-2023 Basophils/100 WBC (Bld) 0.7 % 0-1 [facility] Chloride [Moles/Vol] 100 mmol/L 98-107 [facility] Eosinophils/100 WBC (Bld) 2.4 % 0-5 [facility] Glucose [Mass/Vol] 408 mg/dL 74-106 [facility] Comment on above: Glucose result great er than or equal to 200 mg/dLsuggests DIABETES MELLITUS per A.D.A. criteria. Neutrophils (Bld) [#/Vol] 6.2 10*3/uL 2.0-7.7 [facility] Neutrophils/100 WBC (Bld) 74.4 % 47-70 [facility] Potassium [Moles/Vol] 4.0 mmol/L 3.5-5.1 [facility] Sodium [Moles/Vol] 135 mmol/L 136-145 [facility] WBC (Bld) [#/Vol] 8.3 10*3/uL 4.4-11.0 [facility] Blood erythrocytes count (nu mber/volume)Ordered By: Ar Calle on 07-29-2023 RBC (Bld) [#/Vol] 4.62 10*6/uL 4.6-6.2 [facility] Blood hemoglobin measurement (mass/volume)Ordered By: Arlupe Calle on 07-29-2023 Hemoglobin (Bld) [Mass/Vol] 12.9 g/dL 13.0-16.5 [facility] Blood lymphocytes/100 leukoc ytesOrdered By: Ar Calle on 07-29-2023 Lymphocytes/100 WBC (Bld) 15.2 % 19-41 [facility] Blood monocytes/100 leukocyt esOrdered By: Ar Calle on 07-29-2023 Monocytes/100 WBC (Bld) 6.7 % 0-10 [facility] Blood platelet mean volumeOr dered By: Ar Calle on 07-29-2023 Platelet mean volume (Bld) [Entitic vol] 9.5 fL 6.2-12.0 [facility] Determination of erythrocyte mean corpuscular volume (MCV)Ordered By: Ar Calle on 07-29-2023 MCV (RBC) [Entitic vol] 81.8 fL 80-94 [facility] Glucose Glucometer (BldC) [M ass/Vol]Ordered By: Ar Calle on 07-29-2023 Glucose [Mass/Vol] 400 mg/dL 74-106 [facility] Comment on above: MANAGEMENT OF PATIEN T CARE PER NURSING PROTOCOL Hematocrit Auto (Bld) [Volum e fraction]Ordered By: Ar Calle on 07-29-2023 Hematocrit (Bld) [Volume fraction] 37.8 % 40-54 [facility] - Chemistry and C hemistry - challengeOrdered By: Arlupe Calle on 07-29-2023 CO2 [Moles/Vol] 30.0 mmol/L 21.0-32.0 [facility] Urea nitrogen/Creatinine [Mass ratio] 11.1 mg/mg 10-20 [facility] - Hematology and Cell countsOrdered By: Ar Calle on 07-29-2023 Erythrocyte distribution width (RBC) [Entitic vol] 39.1 fL 35.1-43.9 [facility] Erythrocyte distribution width (RBC) [Ratio] 13.3 % 11.6-14.6 [facility] Immature granulocytes/100 WBC (Bld) 0.600 % 0.0-0.9 [facility] Comment on above: IG% - Immature Granu locytes (promyelocytes, myelocytes and metamyelocytes) > 1% indicates that a LEFT SHIFT is Present. MCH (RBC) [Entitic mass] 27.9 pg 27.0-32.0 [facility] Nucleated RBC/100 WBC (Bld) [Ratio] 0 % 0-5 [facility] MCHC Auto (RBC) [Mass/Vol]Or dered By: Ar Calle on 07-29-2023 MCHC (RBC) [Mass/Vol] 34.1 g/dL 32-36 [facility] No Panel InformationOrdered By: Ar Calle on 07-29-2023 Estimated Creatinine Clearance Calc 75.63 ml/min [facility] Estimated GFR (MDRD) Amer 74 mL/min >60 [facility] Comment on above: GFR Calc Estimated GFR (MDRD) Non-Af Amer 61 mL/min >60 [facility] Comment on above: Non- GFR Calc Troponin I High Sensitivity 4 pg/mL 3.0-78.0 [facility] Comment on above: Please Note: New Kira t Units and Gender Specific Reference Ranges. For more information see Policy Stat Procedure Hubbell High Sensitivity Troponin (TNIH) and attachments. Platelets bldOrdered By: Arlupe Calle on 07-29-2023 Platelets (Bld) [#/Vol] 208 10*3/uL 150-450 [facility] Serum or plasma calcium yayo urement (mass/volume)Ordered By: Ar Calle on 07-29-2023 Calcium [Mass/Vol] 8.5 mg/dL 8.5-10.1 [facility] Serum or plasma creatinine m easurement (mass/volume)Ordered By: Arlupe Calle on 07-29-2023 Creatinine [Mass/Vol] 1.26 mg/dL 0.70-1.30 [facility] Comment on above: The validity of the calculated GFR & GFRAA in patients over 70 years has not been determined. Clinical correlation is essential. Serum or plasma urea nitroge n measurement (mass/volume)Ordered By: Arlupe Calle on 07-29-2023 Urea nitrogen [Mass/Vol] 14 mg/dL 7-18 [facility] Thin prep Papanicolaou smear with manual screeningOrdered By: Arlupe Calle on 07-29-2023 Thin prep Papanicolaou smear with manual screening 5 5-15 [facility] Absolute lymphocyte countOrd ered By: Dr. Castillo on 03-07-2023 Lymphocytes Auto (Unsp spec) [#/Vol] 1.61 10*3/uL 0.83-4.51 [facility] Basophil percentageOrdered B y: Dr. Castillo on 03-07-2023 Basophils/100 WBC (Bld) 0.5 % 0-1 [facility] Bilirubin [Mass/Vol] 0.60 mg/dL 0.20-1.00 [facility] Comment on above: For patients on eltr ombopag therapy, use of Dimension Hubbell TBIL is not recommended. Chloride [Moles/Vol] 104 mmol/L 98-107 [facility] Eosinophils/100 WBC (Bld) 3.1 % 0-5 [facility] Glucose [Mass/Vol] 347 mg/dL 74-106 [facility] Comment on above: Glucose result great er than or equal to 200 mg/dLsuggests DIABETES MELLITUS per A.D.A. criteria. Neutrophils (Bld) [#/Vol] 5.0 10*3/uL 2.0-7.7 [facility] Neutrophils/100 WBC (Bld) 67.8 % 47-70 [facility] Potassium [Moles/Vol] 3.8 mmol/L 3.5-5.1 [facility] Protein [Mass/Vol] 7.3 g/dL 6.4-8.2 [facility] Sodium [Moles/Vol] 139 mmol/L 136-145 [facility] WBC (Bld) [#/Vol] 7.4 10*3/uL 4.4-11.0 [facility] Blood erythrocytes count (nu mber/volume)Ordered By: Dr. Castillo on 03-07-2023 RBC (Bld) [#/Vol] 5.02 10*6/uL 4.6-6.2 [facility] Blood hemoglobin measurement (mass/volume)Ordered By: Dr. Castillo on 03-07-2023 Hemoglobin (Bld) [Mass/Vol] 14.3 g/dL 13.0-16.5 [facility] Blood lymphocytes/100 leukoc ytesOrdered By: Dr. Castillo on 03-07-2023 Lymphocytes/100 WBC (Bld) 21.8 % 19-41 [facility] Blood monocytes/100 leukocyt esOrdered By: Dr. Castillo on 03-07-2023 Monocytes/100 WBC (Bld) 6.4 % 0-10 [facility] Blood platelet mean volumeOr dered By: Dr. Castillo on 03-07-2023 Platelet mean volume (Bld) [Entitic vol] 9.5 fL 6.2-12.0 [facility] Determination of erythrocyte mean corpuscular volume (MCV)Ordered By: Dr. Castillo on 03-07-2023 MCV (RBC) [Entitic vol] 83.3 fL 80-94 [facility] Direct bilirubinOrdered By: Dr. Castillo on 03-07-2023 Bilirubin.direct [Mass/Vol] 0.12 mg/dL 0.00-0.30 [facility] Glucose Glucometer (BldC) [M ass/Vol]Ordered By: Dr. Castillo on 03-07-2023 Glucose [Mass/Vol] 134 mg/dL 74-106 [facility] Comment on above: MANAGEMENT OF PATIEN T CARE PER NURSING PROTOCOL Hematocrit Auto (Bld) [Volum e fraction]Ordered By: Dr. Castillo on 03-07-2023 Hematocrit (Bld) [Volume fraction] 41.8 % 40-54 [facility] - Chemistry and C hemistry - challengeOrdered By: Dr. Castillo on 03-07-2023 ALP [Catalytic activity/Vol] 67 U/L 45-117 [facility] ALT [Catalytic activity/Vol] 16 U/L 16-61 [facility] CO2 [Moles/Vol] 27.0 mmol/L 21.0-32.0 [facility] Globulin (S) [Mass/Vol] 3.8 g/dL 2.2-4.2 [facility] Lipase [Catalytic activity/Vol] 12 U/L 13-75 [facility] Comment on above: Please note:LIPASE r evised reference range effective 23. New Lipase methodology. Expected to produce lower values than the previous assay method. NEW Reference Range: 13 - 75 U/L Urea nitrogen/Creatinine [Mass ratio] 12.5 mg/mg 10-20 [facility] - Hematology and Cell countsOrdered By: Dr. Castillo on 03-07-2023 Erythrocyte distribution width (RBC) [Entitic vol] 40.3 fL 35.1-43.9 [facility] Erythrocyte distribution width (RBC) [Ratio] 13.3 % 11.6-14.6 [facility] Immature granulocytes/100 WBC (Bld) 0.400 % 0.0-0.9 [facility] Comment on above: IG% - Immature Granu locytes (promyelocytes, myelocytes and metamyelocytes) > 1% indicates that a LEFT SHIFT is Present. MCH (RBC) [Entitic mass] 28.5 pg 27.0-32.0 [facility] Nucleated RBC/100 WBC (Bld) [Ratio] 0 % 0-5 [facility] MCHC Auto (RBC) [Mass/Vol]Or dered By: Dr. Castillo on 03-07-2023 MCHC (RBC) [Mass/Vol] 34.2 g/dL 32-36 [facility] No Panel InformationOrdered By: Dr. Castillo on 03-07-2023 Estimated Creatinine Clearance Calc 85.63 ml/min [facility] Estimated GFR (MDRD) Amer 93 mL/min >60 [facility] Comment on above: GFR Calc Estimated GFR (MDRD) Non-Af Amer 77 mL/min >60 [facility] Comment on above: Non- GFR Calc Ethyl Alcohol Level < 3.0 mg/dL [facility] Comment on above: The serum:whole bloo d ethanol ratio is approximately 1.14and varies slightly with hematocrit. Medical Alcohol reference interval and critical value innon-tolerant individuals; 50 - 100 Impairment 100 Intoxication 100 - 250 Severe Poisoning 250 - 400 Deep/possible fatal coma Platelets bldOrdered By: Dr. Castillo on 03-07-2023 Platelets (Bld) [#/Vol] 214 10*3/uL 150-450 [facility] Serum or plasma albumin yayo urement (mass/volume)Ordered By: Dr. Castillo on 03-07-2023 Albumin [Mass/Vol] 3.5 g/dL 3.2-5.0 [facility] Serum or plasma calcium yayo urement (mass/volume)Ordered By: Dr. Castillo on 03-07-2023 Calcium [Mass/Vol] 8.7 mg/dL 8.5-10.1 [facility] Serum or plasma creatinine m easurement (mass/volume)Ordered By: Dr. Castillo on 03-07-2023 Creatinine [Mass/Vol] 1.04 mg/dL 0.70-1.30 [facility] Comment on above: The validity of the calculated GFR & GFRAA in patients over 70 years has not been determined. Clinical correlation is essential. Serum or plasma urea nitroge n measurement (mass/volume)Ordered By: Dr. Castillo on 03-07-2023 Urea nitrogen [Mass/Vol] 13 mg/dL 7-18 [facility] Thin prep Papanicolaou smear with manual screeningOrdered By: Dr. Castillo on 03-07-2023 Thin prep Papanicolaou smear with manual screening 13 U/L 15-37 [facility] Thin prep Papanicolaou smear with manual screening 8 5-15 [facility] Absolute lymphocyte countOrd ered By: Dr. Chavez on 01-18-2023 Lymphocytes Auto (Unsp spec) [#/Vol] 1.51 10*3/uL 0.83-4.51 [facility] Basophil percentageOrdered B y: Dr. Chavez on 01-18-2023 Basophils/100 WBC (Bld) 0.5 % 0-1 [facility] Bilirubin [Mass/Vol] 0.90 mg/dL 0.20-1.00 [facility] Comment on above: For patients on eltr ombopag therapy, use of Dimension Hubbell TBIL is not recommended. Chloride [Moles/Vol] 105 mmol/L 98-107 [facility] Eosinophils/100 WBC (Bld) 2.6 % 0-5 [facility] Glucose [Mass/Vol] 182 mg/dL 74-106 [facility] Comment on above: Fasting Glucose resu lt greater than or equal to 126 mg/dL suggests DIABETES MELLITUS per A.D.A. criteria. Neutrophils (Bld) [#/Vol] 6.0 10*3/uL 2.0-7.7 [facility] Neutrophils/100 WBC (Bld) 71.9 % 47-70 [facility] Potassium [Moles/Vol] 3.4 mmol/L 3.5-5.1 [facility] Protein [Mass/Vol] 6.9 g/dL 6.4-8.2 [facility] Sodium [Moles/Vol] 139 mmol/L 136-145 [facility] WBC (Bld) [#/Vol] 8.4 10*3/uL 4.4-11.0 [facility] Blood erythrocytes count (nu mber/volume)Ordered By: Dr. Chavez on 01-18-2023 RBC (Bld) [#/Vol] 5.01 10*6/uL 4.6-6.2 [facility] Blood hemoglobin measurement (mass/volume)Ordered By: Dr. Chavez on 01-18-2023 Hemoglobin (Bld) [Mass/Vol] 14.4 g/dL 13.0-16.5 [facility] Blood lymphocytes/100 leukoc ytesOrdered By: Dr. Chavez on 01-18-2023 Lymphocytes/100 WBC (Bld) 18.0 % 19-41 [facility] Blood monocytes/100 leukocyt esOrdered By: Dr. Chavez on 01-18-2023 Monocytes/100 WBC (Bld) 6.8 % 0-10 [facility] Blood platelet mean volumeOr dered By: Dr. Chavez on 01-18-2023 Platelet mean volume (Bld) [Entitic vol] 8.9 fL 6.2-12.0 [facility] Clostridium difficile detect ion by polymerase chain reactionOrdered By: Bernard Chavez on 01-18-2023 C. difficile DNA IOANA+probe Ql (Unsp spec) [facility] Clostridium difficile detect ion by polymerase chain reactionOrdered By: Dr. Chavez on 01-18-2023 C. difficile DNA IOANA+probe Ql (Unsp spec) [facility] Determination of erythrocyte mean corpuscular volume (MCV)Ordered By: Dr. Chavez on 01-18-2023 MCV (RBC) [Entitic vol] 81.6 fL 80-94 [facility] Hematocrit Auto (Bld) [Volum e fraction]Ordered By: Dr. Chavez on 01-18-2023 Hematocrit (Bld) [Volume fraction] 40.9 % 40-54 [facility] Laboratory - Chemistry and C hemistry - challengeOrdered By: Dr. Chavez on 01-18-2023 ALP [Catalytic activity/Vol] 64 U/L 45-117 [facility] ALT [Catalytic activity/Vol] 14 U/L 16-61 [facility] CO2 [Moles/Vol] 28.0 mmol/L 21.0-32.0 [facility] Globulin (S) [Mass/Vol] 3.2 g/dL 2.2-4.2 [facility] Urea nitrogen/Creatinine [Mass ratio] 11.7 mg/mg 10-20 [facility] Laboratory - Hematology and Cell countsOrdered By: Dr. Chavez on 01-18-2023 Erythrocyte distribution width (RBC) [Entitic vol] 39.6 fL 35.1-43.9 [facility] Erythrocyte distribution width (RBC) [Ratio] 13.4 % 11.6-14.6 [facility] Immature granulocytes/100 WBC (Bld) 0.200 % 0.0-0.9 [facility] Comment on above: IG% - Immature Granu locytes (promyelocytes, myelocytes and metamyelocytes) > 1% indicates that a LEFT SHIFT is Present. MCH (RBC) [Entitic mass] 28.7 pg 27.0-32.0 [facility] Nucleated RBC/100 WBC (Bld) [Ratio] 0 % 0-5 [facility] MCHC Auto (RBC) [Mass/Vol]Or dered By: Dr. Chavez on 01-18-2023 MCHC (RBC) [Mass/Vol] 35.2 g/dL 32-36 [facility] No Panel InformationOrdered By: Dr. Chavez on 01-18-2023 Estimated Creatinine Clearance Calc 102.69 ml/min [facility] Estimated GFR (MDRD) Amer 105 mL/min >60 [facility] Comment on above: GFR Calc Estimated GFR (MDRD) Non-Af Amer 86 mL/min >60 [facility] Comment on above: Non- GFR Calc Platelets bldOrdered By: Dr. Chavez on 01-18-2023 Platelets (Bld) [#/Vol] 199 10*3/uL 150-450 [facility] Serum or plasma albumin yayo urement (mass/volume)Ordered By: Dr. Chavez on 01-18-2023 Albumin [Mass/Vol] 3.7 g/dL 3.2-5.0 [facility] Serum or plasma albumin/glob ulin mass ratioOrdered By: Dr. Chavez on 01-18-2023 Albumin/Globulin [Mass ratio] 1.2 {ratio} 0.9-2.4 [facility] Serum or plasma calcium yayo urement (mass/volume)Ordered By: Dr. Chavez on 01-18-2023 Calcium [Mass/Vol] 8.3 mg/dL 8.5-10.1 [facility] Serum or plasma creatinine m easurement (mass/volume)Ordered By: Dr. Chavez on 01-18-2023 Creatinine [Mass/Vol] 0.94 mg/dL 0.70-1.30 [facility] Comment on above: The validity of the calculated GFR & GFRAA in patients over 70 years has not been determined. Clinical correlation is essential. Serum or plasma urea nitroge n measurement (mass/volume)Ordered By: Dr. Chavez on 01-18-2023 Urea nitrogen [Mass/Vol] 11 mg/dL 7-18 [facility] Stool lactoferrin detection by immunoassayOrdered By: Bernard Chavez on 01-18-2023 Lactoferrin IA Ql (Stl) [facility] Stool lactoferrin detection by immunoassayOrdered By: Dr. Chavez on 01-18-2023 Lactoferrin IA Ql (Stl) [facility] Thin prep Papanicolaou smear with manual screeningOrdered By: Dr. Chavez on 01-18-2023 Thin prep Papanicolaou smear with manual screening 10 U/L 15-37 [facility] Thin prep Papanicolaou smear with manual screening 6 5-15 [facility] Laboratory - Chemistry and C hemistry - challengeOrdered By: Dr. Chavez on 12-15-2022 Free T4 [Mass/Vol] 0.76 ng/dL 0.76-1.46 [facility] No Panel InformationOrdered By: Dr. Chavez on 12-15-2022 Thyroid Stimulating Hormone (TSH) 9.17 uIU/mL 0.358-3.74 [facility] Absolute lymphocyte countOrd ered By: Dr. Wu on 12-11-2022 Lymphocytes Auto (Unsp spec) [#/Vol] 1.53 10*3/uL 0.83-4.51 [facility] Basophil percentageOrdered B y: Dr. Wu on 12-11-2022 Basophil percentage 0 SEEN /hpf 0-5 [facility] Basophils/100 WBC (Bld) 0.6 % 0-1 [facility] Bilirubin [Mass/Vol] 0.60 mg/dL 0.20-1.00 [facility] Comment on above: For patients on eltr ombopag therapy, use of Dimension Hubbell TBIL is not recommended. Chloride [Moles/Vol] 104 mmol/L 98-107 [facility] Eosinophils/100 WBC (Bld) 3.4 % 0-5 [facility] Glucose [Mass/Vol] 337 mg/dL 74-106 [facility] Comment on above: Glucose result great er than or equal to 200 mg/dLsuggests DIABETES MELLITUS per A.D.A. criteria. Neutrophils (Bld) [#/Vol] 4.6 10*3/uL 2.0-7.7 [facility] Neutrophils/100 WBC (Bld) 67.1 % 47-70 [facility] Potassium [Moles/Vol] 3.4 mmol/L 3.5-5.1 [facility] Protein [Mass/Vol] 6.7 g/dL 6.4-8.2 [facility] Sodium [Moles/Vol] 139 mmol/L 136-145 [facility] WBC (Bld) [#/Vol] 6.8 10*3/uL 4.4-11.0 [facility] Bilirubin Test strip Ql (U)O rdered By: Dr. Wu on 12-11-2022 Bilirubin Ql (U) Negative Negative [facility] Blood erythrocytes count (nu mber/volume)Ordered By: Dr. Wu on 12-11-2022 RBC (Bld) [#/Vol] 5.09 10*6/uL 4.6-6.2 [facility] Blood hemoglobin measurement (mass/volume)Ordered By: Dr. Wu on 12-11-2022 Hemoglobin (Bld) [Mass/Vol] 14.4 g/dL 13.0-16.5 [facility] Blood lymphocytes/100 leukoc ytesOrdered By: Dr. Wu on 12-11-2022 Lymphocytes/100 WBC (Bld) 22.4 % 19-41 [facility] Blood monocytes/100 leukocyt esOrdered By: Dr. Wu on 12-11-2022 Monocytes/100 WBC (Bld) 6.1 % 0-10 [facility] Blood platelet mean volumeOr dered By: Dr. Wu on 12-11-2022 Platelet mean volume (Bld) [Entitic vol] 9.5 fL 6.2-12.0 [facility] Determination of erythrocyte mean corpuscular volume (MCV)Ordered By: Dr. Wu on 12-11-2022 MCV (RBC) [Entitic vol] 82.3 fL 80-94 [facility] Glucose Glucometer (BldC) [M ass/Vol]Ordered By: Dr. Wu on 12-11-2022 Glucose [Mass/Vol] 272 mg/dL 74-106 [facility] Comment on above: MANAGEMENT OF PATIEN T CARE PER NURSING PROTOCOL Hematocrit Auto (Bld) [Volum e fraction]Ordered By: Dr. Wu on 12-11-2022 Hematocrit (Bld) [Volume fraction] 41.9 % 40-54 [facility] Influenza virus A and B and SARS-CoV-2 (COVID-19) Ag panel - Upper respiratory specimOrdered By: Dr. Wu on 12-11-2022 SARS-CoV-2 (COVID-19) RNA IOANA+probe Ql (Resp) [facility] Ketones Test strip Ql (U)Ord ered By: Dr. Wu on 12-11-2022 Ketones Ql (U) 5 mg/dl Negative [facility] Laboratory - Chemistry and C hemistry - challengeOrdered By: Dr. Wu on 12-11-2022 ALP [Catalytic activity/Vol] 72 U/L 45-117 [facility] ALT [Catalytic activity/Vol] 12 U/L 16-61 [facility] CO2 [Moles/Vol] 28.0 mmol/L 21.0-32.0 [facility] Globulin (S) [Mass/Vol] 3.2 g/dL 2.2-4.2 [facility] Urea nitrogen/Creatinine [Mass ratio] 8.6 mg/mg 10-20 [facility] Laboratory - Drug toxicology Ordered By: Dr. Wu on 12-11-2022 Amphetamines Ql (U) Negative <1000 ng/mL [facility] Benzodiazepines Ql (U) Negative < 200 ng/mL [facility] Cannabinoids Screen Ql (U) Negative < 50 ng/mL [facility] Cocaine Ql (U) Negative < 300 ng/mL [facility] Opiates Ql (U) Negative < 300 ng/mL [facility] Laboratory - Hematology and Cell countsOrdered By: Dr. Wu on 12-11-2022 Erythrocyte distribution width (RBC) [Entitic vol] 38.8 fL 35.1-43.9 [facility] Erythrocyte distribution width (RBC) [Ratio] 13.2 % 11.6-14.6 [facility] Immature granulocytes/100 WBC (Bld) 0.400 % 0.0-0.9 [facility] Comment on above: IG% - Immature Granu locytes (promyelocytes, myelocytes and metamyelocytes) > 1% indicates that a LEFT SHIFT is Present. MCH (RBC) [Entitic mass] 28.3 pg 27.0-32.0 [facility] Nucleated RBC/100 WBC (Bld) [Ratio] 0 % 0-5 [facility] MCHC Auto (RBC) [Mass/Vol]Or dered By: Dr. Wu on 12-11-2022 MCHC (RBC) [Mass/Vol] 34.4 g/dL 32-36 [facility] Mucus LM Ql (Urine sed)Order ed By: Dr. Wu on 12-11-2022 Mucus Ql (Urine sed) RARE /hpf [facility] Nitrite Test strip Ql (U)Ord ered By: Dr. Wu on 12-11-2022 Nitrite Ql (U) Negative Negative [facility] No Panel InformationOrdered By: Dr. Wu on 12-11-2022 MDMA (Ecstasy) Screen Negative < 500 ng/mL [facility] Urine Barbiturates Screen Negative < 200 ng/mL [facility] Urine Drug Screen Comment [facility] Comment on above: CONFIRMATORY TESTING FOR [...] Methadone Screen Negative < 300 ng/mL [facility] Estimated Creatinine Clearance Calc 103.79 ml/min [facility] Estimated GFR (MDRD) Amer 105 mL/min >60 [facility] Comment on above: GFR Calc Estimated GFR (MDRD) Non-Af Amer 87 mL/min >60 [facility] Comment on above: Non- GFR Calc Ethyl Alcohol Level < 3.0 mg/dL [facility] Comment on above: The serum:whole bloo d ethanol ratio is approximately 1.14and varies slightly with hematocrit. Medical Alcohol reference interval and critical value innon-tolerant individuals; 50 - 100 Impairment 100 Intoxication 100 - 250 Severe Poisoning 250 - 400 Deep/possible fatal coma Troponin I High Sensitivity 6 pg/mL 3.0-78.0 [facility] Comment on above: Please Note: New Kira t Units and Gender Specific Reference Ranges. For more information see Policy Stat Procedure Hubbell High Sensitivity Troponin (TNIH) and attachments. Platelets bldOrdered By: Dr. Wu on 12-11-2022 Platelets (Bld) [#/Vol] 202 10*3/uL 150-450 [facility] Protein Test strip Ql (U)Ord ered By: Dr. Wu on 12-11-2022 Protein Ql (U) 15 mg/dl Negative [facility] Serum or plasma albumin yayo urement (mass/volume)Ordered By: Dr. Wu on 12-11-2022 Albumin [Mass/Vol] 3.5 g/dL 3.2-5.0 [facility] Serum or plasma albumin/glob ulin mass ratioOrdered By: Dr. Wu on 12-11-2022 Albumin/Globulin [Mass ratio] 1.1 {ratio} 0.9-2.4 [facility] Serum or plasma calcium yayo urement (mass/volume)Ordered By: Dr. Wu on 12-11-2022 Calcium [Mass/Vol] 8.6 mg/dL 8.5-10.1 [facility] Serum or plasma creatinine m easurement (mass/volume)Ordered By: Dr. Wu on 12-11-2022 Creatinine [Mass/Vol] 0.93 mg/dL 0.70-1.30 [facility] Comment on above: The validity of the calculated GFR & GFRAA in patients over 70 years has not been determined. Clinical correlation is essential. Serum or plasma urea nitroge n measurement (mass/volume)Ordered By: Dr. Wu on 12-11-2022 Urea nitrogen [Mass/Vol] 8 mg/dL 7-18 [facility] Squamous epithelial cells de tection in urine sediment by light microscopyOrdered By: Dr. Wu on 12-11-2022 Epithelial cells.squamous LM Ql (Urine sed) 0 SEEN /hpf 0-5 [facility] Thin prep Papanicolaou smear with manual screeningOrdered By: Dr. Wu on 12-11-2022 Thin prep Papanicolaou smear with manual screening 5 U/L 15-37 [facility] Thin prep Papanicolaou smear with manual screening 7 5-15 [facility] Urine blood detectionOrdered By: Dr. Wu on 12-11-2022 RBC Ql (U) Negative Negative [facility] RBC Ql (U) 0 SEEN /hpf 0-5 [facility] Urine clarityOrdered By: Dr. Wu on 12-11-2022 Clarity (U) Clear Clear [facility] Urine color determinationOrd ered By: Dr. Wu on 12-11-2022 Color (U) Yellow Yellow [facility] Urine glucose detectionOrder ed By: Dr. Wu on 12-11-2022 Glucose Ql (U) 1000 mg/dl Normal [facility] Urine leukocyte esterase det ection by dipstickOrdered By: Dr. Wu on 12-11-2022 Leukocyte esterase Test strip Ql (U) Negative Negative [facility] Urine pHOrdered By: Dr. Humza ya on 12-11-2022 pH (U) 6.0 [pH] 5.0 - 8.0 [facility] Urine phencyclidine (PCP) de tectionOrdered By: Dr. Wu on 12-11-2022 Phencyclidine Ql (U) Negative < 25 ng/mL [facility] Urine sediment bacteria coun t by microscopy (number/high power field)Ordered By: Dr. Wu on 12-11-2022 Bacteria LM.HPF (Urine sed) [#/Area] 0 /[HPF] None Seen [facility] Urine specific gravity measu rementOrdered By: Dr. Wu on 12-11-2022 Specific gravity (U) [Rel density] 1.015 1.002-1.030 [facility] Urobilinogen Auto test strip Ql (U)Ordered By: Dr. Wu on 12-11-2022 Urobilinogen Ql (U) Normal mg/dl Normal [facility] Absolute lymphocyte countOrd ered By: Dr. Castillo on 12-10-2022 Lymphocytes Auto (Unsp spec) [#/Vol] 1.79 10*3/uL 0.83-4.51 [facility] Basophil percentageOrdered B y: Dr. Castillo on 12-10-2022 Basophil percentage 0 SEEN /hpf 0-5 [facility] Basophils/100 WBC (Bld) 0.5 % 0-1 [facility] Chloride [Moles/Vol] 106 mmol/L 98-107 [facility] Eosinophils/100 WBC (Bld) 3.3 % 0-5 [facility] Glucose [Mass/Vol] 250 mg/dL 74-106 [facility] Comment on above: Glucose result great er than or equal to 200 mg/dLsuggests DIABETES MELLITUS per A.D.A. criteria. Neutrophils (Bld) [#/Vol] 5.0 10*3/uL 2.0-7.7 [facility] Neutrophils/100 WBC (Bld) 64.8 % 47-70 [facility] Potassium [Moles/Vol] 3.7 mmol/L 3.5-5.1 [facility] Sodium [Moles/Vol] 141 mmol/L 136-145 [facility] WBC (Bld) [#/Vol] 7.7 10*3/uL 4.4-11.0 [facility] Bilirubin Test strip Ql (U)O rdered By: Dr. Castillo on 12-10-2022 Bilirubin Ql (U) Negative Negative [facility] Blood erythrocytes count (nu mber/volume)Ordered By: Dr. Castillo on 12-10-2022 RBC (Bld) [#/Vol] 5.31 10*6/uL 4.6-6.2 [facility] Blood hemoglobin measurement (mass/volume)Ordered By: Dr. Castillo on 12-10-2022 Hemoglobin (Bld) [Mass/Vol] 15.1 g/dL 13.0-16.5 [facility] Blood lymphocytes/100 leukoc ytesOrdered By: Dr. Castillo on 12-10-2022 Lymphocytes/100 WBC (Bld) 23.4 % 19-41 [facility] Blood monocytes/100 leukocyt esOrdered By: Dr. Castillo on 12-10-2022 Monocytes/100 WBC (Bld) 7.3 % 0-10 [facility] Blood platelet mean volumeOr dered By: Dr. Castillo on 12-10-2022 Platelet mean volume (Bld) [Entitic vol] 9.3 fL 6.2-12.0 [facility] Determination of erythrocyte mean corpuscular volume (MCV)Ordered By: Dr. Castillo on 12-10-2022 MCV (RBC) [Entitic vol] 81.7 fL 80-94 [facility] Glucose Glucometer (BldC) [M ass/Vol]Ordered By: Dr. Castillo on 12-10-2022 Glucose [Mass/Vol] 261 mg/dL 74-106 [facility] Comment on above: MANAGEMENT OF PATIEN T CARE PER NURSING PROTOCOL Hematocrit Auto (Bld) [Volum e fraction]Ordered By: Dr. Castillo on 12-10-2022 Hematocrit (Bld) [Volume fraction] 43.4 % 40-54 [facility] Ketones Test strip Ql (U)Ord ered By: Dr. Castillo on 12-10-2022 Ketones Ql (U) Negative Negative [facility] Laboratory - Chemistry and C hemistry - challengeOrdered By: Dr. Castillo on 12-10-2022 CO2 [Moles/Vol] 30.0 mmol/L 21.0-32.0 [facility] Urea nitrogen/Creatinine [Mass ratio] 9.8 mg/mg 10-20 [facility] Laboratory - Hematology and Cell countsOrdered By: Dr. Castillo on 12-10-2022 Erythrocyte distribution width (RBC) [Entitic vol] 39.1 fL 35.1-43.9 [facility] Erythrocyte distribution width (RBC) [Ratio] 13.3 % 11.6-14.6 [facility] Immature granulocytes/100 WBC (Bld) 0.700 % 0.0-0.9 [facility] Comment on above: IG% - Immature Granu locytes (promyelocytes, myelocytes and metamyelocytes) > 1% indicates that a LEFT SHIFT is Present. MCH (RBC) [Entitic mass] 28.4 pg 27.0-32.0 [facility] Nucleated RBC/100 WBC (Bld) [Ratio] 0 % [facility] ([facility]) [Mass/Vol]Or dered By: Dr. Castillo on 12-10-2022 MCHC (RBC) [Mass/Vol] 34.8 g/dL 32-36 [facility] Mucus LM Ql (Urine sed)Order ed By: Dr. Castillo on 12-10-2022 Mucus Ql (Urine sed) 0 SEEN /hpf [facility] Nitrite Test strip Ql (U)Ord ered By: Dr. Castillo on 12-10-2022 Nitrite Ql (U) Negative Negative [facility] No Panel InformationOrdered By: Dr. Castillo on 12-10-2022 Estimated Creatinine Clearance Calc 94.63 ml/min [facility] Estimated GFR (MDRD) Amer 95 mL/min >60 [facility] Comment on above: GFR Calc Estimated GFR (MDRD) Non-Af Amer 79 mL/min >60 [facility] Comment on above: Non- GFR Calc Platelets bldOrdered By: Dr. Castillo on 12-10-2022 Platelets (Bld) [#/Vol] 251 10*3/uL 150-450 [facility] Protein Test strip Ql (U)Ord ered By: Dr. Castillo on 12-10-2022 Protein Ql (U) 15 mg/dl Negative [facility] Serum or plasma calcium yayo urement (mass/volume)Ordered By: Dr. Castillo on 12-10-2022 Calcium [Mass/Vol] 9.3 mg/dL 8.5-10.1 [facility] Serum or plasma creatinine m easurement (mass/volume)Ordered By: Dr. Castillo on 12-10-2022 Creatinine [Mass/Vol] 1.02 mg/dL 0.70-1.30 [facility] Comment on above: The validity of the calculated GFR & GFRAA in patients over 70 years has not been determined. Clinical correlation is essential. Serum or plasma urea nitroge n measurement (mass/volume)Ordered By: Dr. Castillo on 12-10-2022 Urea nitrogen [Mass/Vol] 10 mg/dL 7-18 [facility] Squamous epithelial cells de tection in urine sediment by light microscopyOrdered By: Dr. Castillo on 12-10-2022 Epithelial cells.squamous LM Ql (Urine sed) 0-5 SEEN /hpf 0-5 [facility] Thin prep Papanicolaou smear with manual screeningOrdered By: Dr. Castillo on 12-10-2022 Thin prep Papanicolaou smear with manual screening 5 5-15 [facility] Urine blood detectionOrdered By: Dr. Castillo on 12-10-2022 RBC Ql (U) Negative Negative [facility] RBC Ql (U) 0 SEEN /hpf 0-5 [facility] Urine clarityOrdered By: Dr. Castillo on 12-10-2022 Clarity (U) Sl. Cloudy Clear [facility] Urine color determinationOrd ered By: Dr. Castillo on 12-10-2022 Color (U) Yellow Yellow [facility] Urine glucose detectionOrder ed By: Dr. Castillo on 12-10-2022 Glucose Ql (U) 1000 mg/dl Normal [facility] Urine leukocyte esterase det ection by dipstickOrdered By: Dr. Castillo on 12-10-2022 Leukocyte esterase Test strip Ql (U) Negative Negative [facility] Urine pHOrdered By: Dr. Castillo o n 12-10-2022 pH (U) 6.0 [pH] 5.0 - 8.0 [facility] Urine sediment bacteria coun t by microscopy (number/high power field)Ordered By: Dr. Castillo on 12-10-2022 Bacteria LM.HPF (Urine sed) [#/Area] 0 /[HPF] None Seen [facility] Urine specific gravity measu rementOrdered By: Dr. Castillo on 12-10-2022 Specific gravity (U) [Rel density] 1.015 1.002-1.030 [facility] Urobilinogen Auto test strip Ql (U)Ordered By: Dr. Castillo on 12-10-2022 Urobilinogen Ql (U) Normal mg/dl Normal [facility] Basophil percentageOrdered B y: Dr. Calle on 11-25-2022 Chloride [Moles/Vol] 102 mmol/L 98-107 [facility] Glucose [Mass/Vol] 429 mg/dL 74-106 [facility] Comment on above: Glucose result great er than or equal to 200 mg/dLsuggests DIABETES MELLITUS per A.D.A. criteria. Potassium [Moles/Vol] 4.0 mmol/L 3.5-5.1 [facility] Sodium [Moles/Vol] 136 mmol/L 136-145 [facility] Glucose Glucometer (BldC) [M ass/Vol]Ordered By: Dr. Calle on 11-25-2022 Glucose [Mass/Vol] 380 mg/dL 74-106 [facility] Comment on above: MANAGEMENT OF PATIEN T CARE PER NURSING PROTOCOL Laboratory - Chemistry and C hemistry - challengeOrdered By: Dr. Calle on 11-25-2022 CO2 [Moles/Vol] 28.0 mmol/L 21.0-32.0 [facility] Urea nitrogen/Creatinine [Mass ratio] 11.3 mg/mg 10-20 [facility] No Panel InformationOrdered By: Dr. Calle on 11-25-2022 Estimated Creatinine Clearance Calc 99.51 ml/min [facility] Estimated GFR (MDRD) Amer 101 mL/min >60 [facility] Comment on above: GFR Calc Estimated GFR (MDRD) Non-Af Amer 83 mL/min >60 [facility] Comment on above: Non- GFR Calc Serum or plasma calcium yayo urement (mass/volume)Ordered By: Dr. Calle on 11-25-2022 Calcium [Mass/Vol] 9.0 mg/dL 8.5-10.1 [facility] Serum or plasma creatinine m easurement (mass/volume)Ordered By: Dr. Calle on 11-25-2022 Creatinine [Mass/Vol] 0.97 mg/dL 0.70-1.30 [facility] Comment on above: The validity of the calculated GFR & GFRAA in patients over 70 years has not been determined. Clinical correlation is essential. Serum or plasma urea nitroge n measurement (mass/volume)Ordered By: Dr. Calle on 11-25-2022 Urea nitrogen [Mass/Vol] 11 mg/dL 7-18 [facility] Thin prep Papanicolaou smear with manual screeningOrdered By: Dr. Calle on 11-25-2022 Thin prep Papanicolaou smear with manual screening 6 5-15 [facility] Influenza virus A and B and SARS-CoV-2 (COVID-19) Ag panel - Upper respiratory specimOrdered By: Johann Lemons on 10-30-2022 SARS-CoV-2 (COVID-19) RNA IOANA+probe Ql (Resp) [facility] Absolute lymphocyte countOrd ered By: ED PROVIDER on 10-29-2022 Lymphocytes Auto (Unsp spec) [#/Vol] 1.87 10*3/uL 0.83-4.51 [facility] Basophil percentageOrdered B y: ED PROVIDER on 10-29-2022 Basophils/100 WBC (Bld) 0.3 % 0-1 [facility] Chloride [Moles/Vol] 104 mmol/L 98-107 [facility] Eosinophils/100 WBC (Bld) 2.0 % 0-5 [facility] Glucose [Mass/Vol] 361 mg/dL 74-106 [facility] Comment on above: Glucose result great er than or equal to 200 mg/dLsuggests DIABETES MELLITUS per A.D.A. criteria. Neutrophils (Bld) [#/Vol] 8.6 10*3/uL 2.0-7.7 [facility] Neutrophils/100 WBC (Bld) 75.0 % 47-70 [facility] Potassium [Moles/Vol] 4.0 mmol/L 3.5-5.1 [facility] Sodium [Moles/Vol] 136 mmol/L 136-145 [facility] WBC (Bld) [#/Vol] 11.5 10*3/uL 4.4-11.0 [facility] Blood erythrocytes count (nu mber/volume)Ordered By: ED PROVIDER on 10-29-2022 RBC (Bld) [#/Vol] 5.15 10*6/uL 4.6-6.2 [facility] Blood hemoglobin measurement (mass/volume)Ordered By: ED PROVIDER on 10-29-2022 Hemoglobin (Bld) [Mass/Vol] 14.8 g/dL 13.0-16.5 [facility] Blood lymphocytes/100 leukoc ytesOrdered By: ED PROVIDER on 10-29-2022 Lymphocytes/100 WBC (Bld) 16.2 % 19-41 [facility] Blood monocytes/100 leukocyt esOrdered By: ED PROVIDER on 10-29-2022 Monocytes/100 WBC (Bld) 6.2 % 0-10 [facility] Blood platelet mean volumeOr dered By: ED PROVIDER on 10-29-2022 Platelet mean volume (Bld) [Entitic vol] 9.5 fL 6.2-12.0 [facility] Determination of erythrocyte mean corpuscular volume (MCV)Ordered By: ED PROVIDER on 10-29-2022 MCV (RBC) [Entitic vol] 81.9 fL 80-94 [facility] Hematocrit Auto (Bld) [Volum e fraction]Ordered By: ED PROVIDER on 10-29-2022 Hematocrit (Bld) [Volume fraction] 42.2 % 40-54 [facility] Laboratory - Chemistry and C hemistry - challengeOrdered By: ED PROVIDER on 10-29-2022 CO2 [Moles/Vol] 26.0 mmol/L 21.0-32.0 [facility] Urea nitrogen/Creatinine [Mass ratio] 14.8 mg/mg 10-20 [facility] Laboratory - Chemistry and C hemistry - challengeOrdered By: Johann Lemons on 10-29-2022 Magnesium [Mass/Vol] 1.7 mg/dL 1.6-2.6 [facility] Laboratory - Hematology and Cell countsOrdered By: ED PROVIDER on 10-29-2022 Erythrocyte distribution width (RBC) [Entitic vol] 38.6 fL 35.1-43.9 [facility] Erythrocyte distribution width (RBC) [Ratio] 13.1 % 11.6-14.6 [facility] Immature granulocytes/100 WBC (Bld) 0.300 % 0.0-0.9 [facility] Comment on above: IG% - Immature Granu locytes (promyelocytes, myelocytes and metamyelocytes) > 1% indicates that a LEFT SHIFT is Present. MCH (RBC) [Entitic mass] 28.7 pg 27.0-32.0 [facility] Nucleated RBC/100 WBC (Bld) [Ratio] 0 % 0-5 [facility] MCHC Auto (RBC) [Mass/Vol]Or dered By: ED PROVIDER on 10-29-2022 MCHC (RBC) [Mass/Vol] 35.1 g/dL 32-36 [facility] No Panel InformationOrdered By: ED PROVIDER on 10-29-2022 Estimated Creatinine Clearance Calc 83.93 ml/min [facility] Estimated GFR (MDRD) Amer 83 mL/min >60 [facility] Comment on above: GFR Calc Estimated GFR (MDRD) Non-Af Amer 68 mL/min >60 [facility] Comment on above: Non- GFR Calc Platelets bldOrdered By: ED PROVIDER on 10-29-2022 Platelets (Bld) [#/Vol] 224 10*3/uL 150-450 [facility] Serum or plasma calcium yayo urement (mass/volume)Ordered By: ED PROVIDER on 10-29-2022 Calcium [Mass/Vol] 8.9 mg/dL 8.5-10.1 [facility] Serum or plasma creatinine m easurement (mass/volume)Ordered By: ED PROVIDER on 10-29-2022 Creatinine [Mass/Vol] 1.15 mg/dL 0.70-1.30 [facility] Comment on above: The validity of the calculated GFR & GFRAA in patients over 70 years has not been determined. Clinical correlation is essential. Serum or plasma urea nitroge n measurement (mass/volume)Ordered By: ED PROVIDER on 10-29-2022 Urea nitrogen [Mass/Vol] 17 mg/dL 7-18 [facility] Thin prep Papanicolaou smear with manual screeningOrdered By: ED PROVIDER on 10-29-2022 Thin prep Papanicolaou smear with manual screening 6 5-15 [facility] Absolute lymphocyte countOrd ered By: Dr. Wu on 09-18-2022 Lymphocytes Auto (Unsp spec) [#/Vol] 1.62 10*3/uL 0.83-4.51 [facility] Basophil percentageOrdered B y: Dr. Wu on 09-18-2022 Basophils/100 WBC (Bld) 0.5 % 0-1 [facility] Bilirubin [Mass/Vol] 0.50 mg/dL 0.20-1.00 [facility] Comment on above: For patients on eltr ombopag therapy, use of Dimension Hubbell TBIL is not recommended. Chloride [Moles/Vol] 106 mmol/L 98-107 [facility] Eosinophils/100 WBC (Bld) 3.5 % 0-5 [facility] Glucose [Mass/Vol] 262 mg/dL 74-106 [facility] Comment on above: Glucose result great er than or equal to 200 mg/dLsuggests DIABETES MELLITUS per A.D.A. criteria. Neutrophils (Bld) [#/Vol] 5.4 10*3/uL 2.0-7.7 [facility] Neutrophils/100 WBC (Bld) 68.0 % 47-70 [facility] Potassium [Moles/Vol] 3.7 mmol/L 3.5-5.1 [facility] Protein [Mass/Vol] 7.1 g/dL 6.4-8.2 [facility] Sodium [Moles/Vol] 137 mmol/L 136-145 [facility] WBC (Bld) [#/Vol] 7.9 10*3/uL 4.4-11.0 [facility] Blood erythrocytes count (nu mber/volume)Ordered By: Dr. Wu on 09-18-2022 RBC (Bld) [#/Vol] 4.87 10*6/uL 4.6-6.2 [facility] Blood hemoglobin measurement (mass/volume)Ordered By: Dr. Wu on 09-18-2022 Hemoglobin (Bld) [Mass/Vol] 14.6 g/dL 13.0-16.5 [facility] Blood lymphocytes/100 leukoc ytesOrdered By: Dr. Wu on 09-18-2022 Lymphocytes/100 WBC (Bld) 20.4 % 19-41 [facility] Blood monocytes/100 leukocyt esOrdered By: Dr. Wu on 09-18-2022 Monocytes/100 WBC (Bld) 7.2 % 0-10 [facility] Blood platelet mean volumeOr dered By: Dr. Wu on 09-18-2022 Platelet mean volume (Bld) [Entitic vol] 9.1 fL 6.2-12.0 [facility] Determination of erythrocyte mean corpuscular volume (MCV)Ordered By: Dr. Wu on 09-18-2022 MCV (RBC) [Entitic vol] 83.2 fL 80-94 [facility] Hematocrit Auto (Bld) [Volum e fraction]Ordered By: Dr. Wu on 09-18-2022 Hematocrit (Bld) [Volume fraction] 40.5 % 40-54 [facility] Laboratory - Chemistry and C hemistry - challengeOrdered By: Dr. Wu on 09-18-2022 ALP [Catalytic activity/Vol] 75 U/L 45-117 [facility] ALT [Catalytic activity/Vol] 16 U/L 16-61 [facility] CO2 [Moles/Vol] 24.0 mmol/L 21.0-32.0 [facility] Globulin (S) [Mass/Vol] 3.5 g/dL 2.2-4.2 [facility] Lipase [Catalytic activity/Vol] 64 U/L 73-393 [facility] Urea nitrogen/Creatinine [Mass ratio] 16.3 mg/mg 10-20 [facility] Laboratory - Hematology and Cell countsOrdered By: Dr. Wu on 09-18-2022 Erythrocyte distribution width (RBC) [Entitic vol] 39.2 fL 35.1-43.9 [facility] Erythrocyte distribution width (RBC) [Ratio] 13.1 % 11.6-14.6 [facility] Immature granulocytes/100 WBC (Bld) 0.400 % 0.0-0.9 [facility] Comment on above: IG% - Immature Granu locytes (promyelocytes, myelocytes and metamyelocytes) > 1% indicates that a LEFT SHIFT is Present. MCH (RBC) [Entitic mass] 30.0 pg 27.0-32.0 [facility] Nucleated RBC/100 WBC (Bld) [Ratio] 0 % 0-5 [facility] MCHC Auto (RBC) [Mass/Vol]Or dered By: Dr. Wu on 09-18-2022 MCHC (RBC) [Mass/Vol] 36.0 g/dL 32-36 [facility] No Panel InformationOrdered By: Dr. Wu on 09-18-2022 Estimated Creatinine Clearance Calc 98.49 ml/min [facility] Estimated GFR (MDRD) Amer 100 mL/min >60 [facility] Comment on above: GFR Calc Estimated GFR (MDRD) Non-Af Amer 82 mL/min >60 [facility] Comment on above: Non- GFR Calc Ethyl Alcohol Level < 3.0 mg/dL [facility] Comment on above: The serum:whole bloo d ethanol ratio is approximately 1.14and varies slightly with hematocrit. Medical Alcohol reference interval and critical value innon-tolerant individuals; 50 - 100 Impairment 100 Intoxication 100 - 250 Severe Poisoning 250 - 400 Deep/possible fatal coma Platelets bldOrdered By: Dr. Wu on 09-18-2022 Platelets (Bld) [#/Vol] 188 10*3/uL 150-450 [facility] Serum or plasma albumin yayo urement (mass/volume)Ordered By: Dr. Wu on 09-18-2022 Albumin [Mass/Vol] 3.6 g/dL 3.2-5.0 [facility] Serum or plasma albumin/glob ulin mass ratioOrdered By: Dr. Wu on 09-18-2022 Albumin/Globulin [Mass ratio] 1.0 {ratio} 0.9-2.4 [facility] Serum or plasma calcium yayo urement (mass/volume)Ordered By: Dr. Wu on 09-18-2022 Calcium [Mass/Vol] 9.1 mg/dL 8.5-10.1 [facility] Serum or plasma creatinine m easurement (mass/volume)Ordered By: Dr. Wu on 09-18-2022 Creatinine [Mass/Vol] 0.98 mg/dL 0.70-1.30 [facility] Comment on above: The validity of the calculated GFR & GFRAA in patients over 70 years has not been determined. Clinical correlation is essential. Serum or plasma urea nitroge n measurement (mass/volume)Ordered By: Dr. Wu on 09-18-2022 Urea nitrogen [Mass/Vol] 16 mg/dL 7-18 [facility] Thin prep Papanicolaou smear with manual screeningOrdered By: Dr. Wu on 09-18-2022 Thin prep Papanicolaou smear with manual screening 9 U/L 15-37 [facility] Thin prep Papanicolaou smear with manual screening 7 5-15 [facility] Absolute lymphocyte countOrd ered By: Dr. Mathew on 08-07-2022 Lymphocytes Auto (Unsp spec) [#/Vol] 1.92 10*3/uL 0.83-4.51 [facility] Basophil percentageOrdered B y: Dr. Mathew on 08-07-2022 Basophil percentage 0 SEEN /hpf 0-5 [facility] Basophils/100 WBC (Bld) 0.3 % 0-1 [facility] Bilirubin [Mass/Vol] 0.40 mg/dL 0.20-1.00 [facility] Comment on above: For patients on eltr ombopag therapy, use of Dimension Hubbell TBIL is not recommended. Chloride [Moles/Vol] 108 mmol/L 98-107 [facility] Eosinophils/100 WBC (Bld) 3.1 % 0-5 [facility] Glucose [Mass/Vol] 194 mg/dL 74-106 [facility] Comment on above: Fasting Glucose resu lt greater than or equal to 126 mg/dL suggests DIABETES MELLITUS per A.D.A. criteria. Neutrophils (Bld) [#/Vol] 6.2 10*3/uL 2.0-7.7 [facility] Neutrophils/100 WBC (Bld) 68.4 % 47-70 [facility] Potassium [Moles/Vol] 3.6 mmol/L 3.5-5.1 [facility] Protein [Mass/Vol] 7.5 g/dL 6.4-8.2 [facility] Sodium [Moles/Vol] 142 mmol/L 136-145 [facility] WBC (Bld) [#/Vol] 9.1 10*3/uL 4.4-11.0 [facility] Bilirubin Test strip Ql (U)O rdered By: Dr. Mathew on 08-07-2022 Bilirubin Ql (U) Negative Negative [facility] Blood erythrocytes count (nu mber/volume)Ordered By: Dr. Mathew on 08-07-2022 RBC (Bld) [#/Vol] 5.01 10*6/uL 4.6-6.2 [facility] Blood hemoglobin measurement (mass/volume)Ordered By: Dr. Mathew on 08-07-2022 Hemoglobin (Bld) [Mass/Vol] 14.4 g/dL 13.0-16.5 [facility] Blood lymphocytes/100 leukoc ytesOrdered By: Dr. Mathew on 08-07-2022 Lymphocytes/100 WBC (Bld) 21.1 % 19-41 [facility] Blood monocytes/100 leukocyt esOrdered By: Dr. Mathew on 08-07-2022 Monocytes/100 WBC (Bld) 6.7 % 0-10 [facility] Blood platelet mean volumeOr dered By: Dr. Mathew on 08-07-2022 Platelet mean volume (Bld) [Entitic vol] 9.5 fL 6.2-12.0 [facility] Determination of erythrocyte mean corpuscular volume (MCV)Ordered By: Dr. Mathew on 08-07-2022 MCV (RBC) [Entitic vol] 84.0 fL 80-94 [facility] Glucose Glucometer (BldC) [M ass/Vol]Ordered By: Dr. Mathew on 08-07-2022 Glucose [Mass/Vol] 193 mg/dL 74-106 [facility] Comment on above: MANAGEMENT OF PATIEN T CARE PER NURSING PROTOCOL Hematocrit Auto (Bld) [Volum e fraction]Ordered By: Dr. Mathew on 08-07-2022 Hematocrit (Bld) [Volume fraction] 42.1 % 40-54 [facility] Ketones Test strip Ql (U)Ord ered By: Dr. Mathew on 08-07-2022 Ketones Ql (U) Negative Negative [facility] Laboratory - Chemistry and C hemistry - challengeOrdered By: Dr. Mathew on 08-07-2022 ALP [Catalytic activity/Vol] 77 U/L 45-117 [facility] ALT [Catalytic activity/Vol] 16 U/L 16-61 [facility] CO2 [Moles/Vol] 28.0 mmol/L 21.0-32.0 [facility] Globulin (S) [Mass/Vol] 3.6 g/dL 2.2-4.2 [facility] Urea nitrogen/Creatinine [Mass ratio] 8.7 mg/mg 10-20 [facility] Laboratory - Hematology and Cell countsOrdered By: Dr. Mathew on 08-07-2022 Erythrocyte distribution width (RBC) [Entitic vol] 42.5 fL 35.1-43.9 [facility] Erythrocyte distribution width (RBC) [Ratio] 14.0 % 11.6-14.6 [facility] Immature granulocytes/100 WBC (Bld) 0.400 % 0.0-0.9 [facility] Comment on above: IG% - Immature Granu locytes (promyelocytes, myelocytes and metamyelocytes) > 1% indicates that a LEFT SHIFT is Present. MCH (RBC) [Entitic mass] 28.7 pg 27.0-32.0 [facility] Nucleated RBC/100 WBC (Bld) [Ratio] 0 % 0-5 [facility] MCHC Auto (RBC) [Mass/Vol]Or dered By: Dr. Mathew on 08-07-2022 MCHC (RBC) [Mass/Vol] 34.2 g/dL 32-36 [facility] Mucus LM Ql (Urine sed)Order ed By: Dr. Mathew on 08-07-2022 Mucus Ql (Urine sed) 0 SEEN /hpf [facility] Nitrite Test strip Ql (U)Ord ered By: Dr. Mathew on 08-07-2022 Nitrite Ql (U) Negative Negative [facility] No Panel InformationOrdered By: Dr. Mathew on 08-07-2022 Estimated Creatinine Clearance Calc 104.92 ml/min [facility] Estimated GFR (MDRD) Amer 107 mL/min >60 [facility] Comment on above: GFR Calc Estimated GFR (MDRD) Non-Af Amer 89 mL/min >60 [facility] Comment on above: Non- GFR Calc Platelets bldOrdered By: Dr. Mathew on 08-07-2022 Platelets (Bld) [#/Vol] 227 10*3/uL 150-450 [facility] Protein Test strip Ql (U)Ord ered By: Dr. Mathew on 08-07-2022 Protein Ql (U) Negative Negative [facility] Serum or plasma albumin yayo urement (mass/volume)Ordered By: Dr. Mathew on 08-07-2022 Albumin [Mass/Vol] 3.9 g/dL 3.2-5.0 [facility] Serum or plasma albumin/glob ulin mass ratioOrdered By: Dr. Mathew on 08-07-2022 Albumin/Globulin [Mass ratio] 1.1 {ratio} 0.9-2.4 [facility] Serum or plasma calcium yayo urement (mass/volume)Ordered By: Dr. Mathew on 08-07-2022 Calcium [Mass/Vol] 9.1 mg/dL 8.5-10.1 [facility] Serum or plasma creatinine m easurement (mass/volume)Ordered By: Dr. Mathew on 08-07-2022 Creatinine [Mass/Vol] 0.92 mg/dL 0.70-1.30 [facility] Comment on above: The validity of the calculated GFR & GFRAA in patients over 70 years has not been determined. Clinical correlation is essential. Serum or plasma urea nitroge n measurement (mass/volume)Ordered By: Dr. Mathew on 08-07-2022 Urea nitrogen [Mass/Vol] 8 mg/dL 7-18 [facility] Squamous epithelial cells de tection in urine sediment by light microscopyOrdered By: Dr. Mathew on 08-07-2022 Epithelial cells.squamous LM Ql (Urine sed) 0 SEEN /hpf 0-5 [facility] Thin prep Papanicolaou smear with manual screeningOrdered By: Dr. Mathew on 08-07-2022 Thin prep Papanicolaou smear with manual screening 7 U/L 15-37 [facility] Thin prep Papanicolaou smear with manual screening 6 5-15 [facility] Urine blood detectionOrdered By: Dr. Mathew on 08-07-2022 RBC Ql (U) Negative Negative [facility] RBC Ql (U) 0 SEEN /hpf 0-5 [facility] Urine clarityOrdered By: Dr. Mathew on 08-07-2022 Clarity (U) Clear Clear [facility] Urine color determinationOrd ered By: Dr. Mathew on 08-07-2022 Color (U) Straw Yellow [facility] Urine glucose detectionOrder ed By: Dr. Mathew on 08-07-2022 Glucose Ql (U) Normal mg/dl Normal [facility] Urine leukocyte esterase det ection by dipstickOrdered By: Dr. Mathew on 08-07-2022 Leukocyte esterase Test strip Ql (U) Negative Negative [facility] Urine pHOrdered By: Dr. Sandra aguirre on 08-07-2022 pH (U) 6.0 [pH] 5.0 - 8.0 [facility] Urine sediment bacteria coun t by microscopy (number/high power field)Ordered By: Dr. Mathew on 08-07-2022 Bacteria LM.HPF (Urine sed) [#/Area] 0 /[HPF] None Seen [facility] Urine specific gravity measu rementOrdered By: Dr. Mathew on 08-07-2022 Specific gravity (U) [Rel density] 1.010 1.002-1.030 [facility] Urobilinogen Auto test strip Ql (U)Ordered By: Dr. Mathew on 08-07-2022 Urobilinogen Ql (U) Normal mg/dl Normal [facility] Absolute lymphocyte counton 07-02-2022 Lymphocytes Auto (Unsp spec) [#/Vol] 1.81 10*3/uL 0.83-4.51 [facility] Work Phone: Basophil percentageon 2021 Basophils/100 WBC (Bld) 0.4 % 0-1 [facility] Work Phone: Chloride [Moles/Vol] 107 mmol/L 98-107 [facility] Work Phone: Eosinophils/100 WBC (Bld) 2.5 % 0-5 [facility] Work Phone: Glucose [Mass/Vol] 132 mg/dL 74-106 [facility] Work Phone: Comment on above: Fasting Glucose resu lt greater than or equal to 126 mg/dL suggests DIABETES MELLITUS per A.D.A. criteria. Neutrophils (Bld) [#/Vol] 4.9 10*3/uL 2.0-7.7 [facility] Work Phone: Neutrophils/100 WBC (Bld) 64.6 % 47-70 [facility] Work Phone: Potassium [Moles/Vol] 3.7 mmol/L 3.5-5.1 [facility] Work Phone: Sodium [Moles/Vol] 142 mmol/L 136-145 [facility] Work Phone: WBC (Bld) [#/Vol] 7.5 10*3/uL 4.4-11.0 [facility] Work Phone: Basophil percentage 0 SEEN /hpf 0-5 [facility] Work Phone: Bilirubin Test strip Ql (U)o n 07-02-2022 Bilirubin Ql (U) Negative Negative [facility] Work Phone: [phone] Blood erythrocytes count (nu mber/volume)on 07-02-2022 RBC (Bld) [#/Vol] 5.07 10*6/uL 4.6-6.2 [facility] Work Phone: [phone] Blood hemoglobin measurement (mass/volume)on 07-02-2022 Hemoglobin (Bld) [Mass/Vol] 14.5 g/dL 13.0-16.5 [facility] Work Phone: Blood lymphocytes/100 leukoc yteson 07-02-2022 Lymphocytes/100 WBC (Bld) 24.1 % 19-41 [facility] Work Phone: Blood monocytes/100 leukocyt eson 07-02-2022 Monocytes/100 WBC (Bld) 8.1 % 0-10 [facility] Work Phone: Blood platelet mean volumeon 07-02-2022 Platelet mean volume (Bld) [Entitic vol] 9.1 fL 6.2-12.0 [facility] Work Phone: [phone] Determination of erythrocyte mean corpuscular volume (MCV)on 07-02-2022 MCV (RBC) [Entitic vol] 82.6 fL 80-94 [facility] Work Phone: Hematocrit Auto (Bld) [Volum e fraction]on 07-02-2022 Hematocrit (Bld) [Volume fraction] 41.9 % 40-54 [facility] Work Phone: [phone] Ketones Test strip Ql (U)on 07-02-2022 Ketones Ql (U) Negative Negative [facility] Work Phone: [phone] Laboratory - Chemistry and C hemistry - challengeon 07-02-2022 CO2 [Moles/Vol] 30.0 mmol/L 21.0-32.0 [facility] Work Phone: [phone] Urea nitrogen/Creatinine [Mass ratio] 16.1 mg/mg 10-20 [facility] Work Phone: Laboratory - Hematology and Cell countson 07-02-2022 Erythrocyte distribution width (RBC) [Entitic vol] 40.1 fL 35.1-43.9 [facility] Work Phone: Erythrocyte distribution width (RBC) [Ratio] 13.5 % 11.6-14.6 [facility] Work Phone: Immature granulocytes/100 WBC (Bld) 0.300 % 0.0-0.9 [facility] Work Phone: Comment on above: IG% - Immature Granu locytes (promyelocytes, myelocytes and metamyelocytes) > 1% indicates that a LEFT SHIFT is Present. MCH (RBC) [Entitic mass] 28.6 pg 27.0-32.0 [facility] Work Phone: Nucleated RBC/100 WBC (Bld) [Ratio] 0 % 0-5 [facility] Work Phone: MCHC Auto (RBC) [Mass/Vol]on 07-02-2022 MCHC (RBC) [Mass/Vol] 34.6 g/dL 32-36 [facility] Work Phone: Mucus LM Ql (Urine sed)on Mucus Ql (Urine sed) 1+ /hpf [facility] Work Phone: Nitrite Test strip Ql (U)on 07-02-2022 Nitrite Ql (U) Negative Negative [facility] Work Phone: No Panel Informationon 07-02 Estimated Creatinine Clearance Calc 110.95 ml/min [facility] Work Phone: Estimated GFR (MDRD) Amer 114 mL/min >60 [facility] Work Phone: Comment on above: GFR Calc Estimated GFR (MDRD) Non-Af Amer 94 mL/min >60 [facility] Work Phone: Comment on above: Non- GFR Calc Platelets bldon 07-02-2022 Platelets (Bld) [#/Vol] 189 10*3/uL 150-450 [facility] Work Phone: Protein Test strip Ql (U)on 07-02-2022 Protein Ql (U) 15 mg/dl Negative [facility] Work Phone: Serum or plasma calcium yayo urement (mass/volume)on 07-02-2022 Calcium [Mass/Vol] 9.1 mg/dL 8.5-10.1 [facility] Work Phone: Serum or plasma creatinine m easurement (mass/volume)on 07-02-2022 Creatinine [Mass/Vol] 0.87 mg/dL 0.70-1.30 [facility] Work Phone: Comment on above: The validity of the calculated GFR & GFRAA in patients over 70 years has not been determined. Clinical correlation is essential. Serum or plasma urea nitroge n measurement (mass/volume)on 07-02-2022 Urea nitrogen [Mass/Vol] 14 mg/dL 7-18 [facility] Work Phone: Squamous epithelial cells de tection in urine sediment by light microscopyon 07-02-2022 Epithelial cells.squamous LM Ql (Urine sed) 0-5 SEEN /hpf 0-5 [facility] Work Phone: Thin prep Papanicolaou smear with manual screeningon 07-02-2022 Thin prep Papanicolaou smear with manual screening 5 5-15 [facility] Work Phone: Urine blood detectionon RBC Ql (U) Negative Negative [facility] Work Phone: RBC Ql (U) 0 SEEN /hpf 0-5 [facility] Work Phone: Urine clarityon 07-02-2022 Clarity (U) Clear Clear [facility] Work Phone: Urine color determinationon 07-02-2022 Color (U) Yellow Yellow [facility] Work Phone: Urine glucose detectionon Glucose Ql (U) 100 mg/dl Normal [facility] Work Phone: Urine leukocyte esterase det ection by dipstickon 07-02-2022 Leukocyte esterase Test strip Ql (U) Negative Negative [facility] Work Phone: Urine pHon 07-02-2022 pH (U) 7.0 [pH] 5.0 - 8.0 [facility] Work Phone: Urine sediment bacteria coun t by microscopy (number/high power field)on 07-02-2022 Bacteria LM.HPF (Urine sed) [#/Area] 1 /[HPF] None Seen [facility] Work Phone: Urine specific gravity measu rementon 07-02-2022 Specific gravity (U) [Rel density] 1.010 1.002-1.030 [facility] Work Phone: Urobilinogen Auto test strip Ql (U)on 07-02-2022 Urobilinogen Ql (U) 1 mg/dl Normal [facility] Work Phone: Absolute lymphocyte counton 04-26-2022 Lymphocytes Auto (Unsp spec) [#/Vol] 1.44 10*3/uL 0.83-4.51 [facility] Work Phone: Basophil percentageon 2021 Basophil percentage 0 SEEN /hpf 0-5 [facility] Work Phone: Basophils/100 WBC (Bld) 0.3 % 0-1 [facility] Work Phone: Chloride [Moles/Vol] 109 mmol/L 98-107 [facility] Work Phone: Eosinophils/100 WBC (Bld) 4.3 % 0-5 [facility] Work Phone: Glucose [Mass/Vol] 121 mg/dL 74-106 [facility] Work Phone: Comment on above: Fasting Glucose resu lt from 100 to 125 mg/dL suggests IMPAIRED HOMEOSTASIS per A.D.A. criteria. Neutrophils (Bld) [#/Vol] 4.4 10*3/uL 2.0-7.7 [facility] Work Phone: Neutrophils/100 WBC (Bld) 66.3 % 47-70 [facility] Work Phone: Potassium [Moles/Vol] 3.6 mmol/L 3.5-5.1 [facility] Work Phone: Sodium [Moles/Vol] 142 mmol/L 136-145 [facility] Work Phone: WBC (Bld) [#/Vol] 6.7 10*3/uL 4.4-11.0 [facility] Work Phone: Bilirubin Test strip Ql (U)o n 04-26-2022 Bilirubin Ql (U) Negative Negative [facility] Work Phone: Blood erythrocytes count (nu mber/volume)on 04-26-2022 RBC (Bld) [#/Vol] 4.97 10*6/uL 4.6-6.2 [facility]: Blood hemoglobin measurement (mass/volume)on 04-26-2022 Hemoglobin (Bld) [Mass/Vol] 14.1 g/dL 13.0-16.5 [facility] Work Phone: Blood lymphocytes/100 leukoc yteson 04-26-2022 Lymphocytes/100 WBC (Bld) 21.5 % 19-41 [facility] Work Phone: Blood monocytes/100 leukocyt eson 04-26-2022 Monocytes/100 WBC (Bld) 7.3 % 0-10 [facility] Work Phone: Blood platelet mean volumeon 04-26-2022 Platelet mean volume (Bld) [Entitic vol] 9.1 fL 6.2-12.0 [facility] Work Phone: [phone] Determination of erythrocyte mean corpuscular volume (MCV)on 04-26-2022 MCV (RBC) [Entitic vol] 80.7 fL 80-94 [facility] Work Phone: Hematocrit Auto (Bld) [Volum e fraction]on 06-27-2022 Hematocrit (Bld) [Volume fraction] 40.1 % 40-54 [facility] Work Phone: Ketones Test strip Ql (U)on 04-26-2022 Ketones Ql (U) Negative Negative [facility] Work Phone: Laboratory - Chemistry and C hemistry - challengeon 04-26-2022 CO2 [Moles/Vol] 28.0 mmol/L 21.0-32.0 [facility] Work Phone: Urea nitrogen/Creatinine [Mass ratio] 10.9 mg/mg 10-20 [facility] Work Phone: Laboratory - Hematology and Cell countson 04-26-2022 Erythrocyte distribution width (RBC) [Entitic vol] 38.6 fL 35.1-43.9 [facility] Work Phone: Erythrocyte distribution width (RBC) [Ratio] 13.4 % 11.6-14.6 [facility] Work Phone: Immature granulocytes/100 WBC (Bld) 0.300 % 0.0-0.9 [facility] Work Phone: Comment on above: IG% - Immature Granu locytes (promyelocytes, myelocytes and metamyelocytes) > 1% indicates that a LEFT SHIFT is Present. MCH (RBC) [Entitic mass] 28.4 pg 27.0-32.0 [facility] Work Phone: Nucleated RBC/100 WBC (Bld) [Ratio] 0 % 0-5 [facility] Work Phone: [phone] MCHC Auto (RBC) [Mass/Vol]on 04-26-2022 MCHC (RBC) [Mass/Vol] 35.2 g/dL 32-36 [facility] Work Phone: Mucus LM Ql (Urine sed)on Mucus Ql (Urine sed) 0 SEEN /hpf [facility] Work Phone: [phone] Nitrite Test strip Ql (U)on 04-26-2022 Nitrite Ql (U) Negative Negative [facility] Work Phone: No Panel Informationon 04-26 Troponin I High Sensitivity 3 pg/mL 3.0-78.0 [facility] Work Phone: Comment on above: Please Note: New Kira t Units and Gender Specific Reference Ranges. For more information see Policy Stat Procedure [place]bell High Sensitivity Troponin (TNIH) and attachments. Estimated Creatinine Clearance Calc 116.30 ml/min [facility] Work Phone: Estimated GFR (MDRD) Amer 121 mL/min >60 [facility] Work Phone: Comment on above: GFR Calc Estimated GFR (MDRD) Non-Af Amer 100 mL/min >60 [facility] Work Phone: Comment on above: Non- GFR Calc Platelets bldon 04-26-2022 Platelets (Bld) [#/Vol] 191 10*3/uL 150-450 [facility] Work Phone: Protein Test strip Ql (U)on 04-26-2022 Protein Ql (U) Negative Negative [facility] Work Phone: Serum or plasma calcium yayo urement (mass/volume)on 04-26-2022 Calcium [Mass/Vol] 8.8 mg/dL 8.5-10.1 [facility] Work Phone: Serum or plasma creatinine m easurement (mass/volume)on 04-26-2022 Creatinine [Mass/Vol] 0.83 mg/dL 0.70-1.30 [facility] Work Phone: Comment on above: The validity of the calculated GFR & GFRAA in patients over 70 years has not been determined. Clinical correlation is essential. Serum or plasma urea nitroge n measurement (mass/volume)on 04-26-2022 Urea nitrogen [Mass/Vol] 9 mg/dL 7-18 [facility] Work Phone: Squamous epithelial cells de tection in urine sediment by light microscopyon 04-26-2022 Epithelial cells.squamous LM Ql (Urine sed) 0 SEEN /hpf 0-5 [facility] Work Phone: Thin prep Papanicolaou smear with manual screeningon 04-26-2022 Thin prep Papanicolaou smear with manual screening 5 5-15 [facility] Work Phone: Urine blood detectionon 04-01 RBC Ql (U) Negative Negative [facility] Work Phone: RBC Ql (U) 0 SEEN /hpf 0-5 [facility] Work Phone: Urine clarityon 04-26-2022 Clarity (U) Clear Clear [facility] Work Phone: Urine color determinationon 04-26-2022 Color (U) Yellow Yellow [facility] Work Phone: Urine glucose detectionon Glucose Ql (U) Normal mg/dl Normal [facility] Work Phone: Urine leukocyte esterase det ection by dipstickon 04-26-2022 Leukocyte esterase Test strip Ql (U) Negative Negative [facility] Work Phone: Urine pHon 04-26-2022 pH (U) 6.0 [pH] 5.0 - 8.0 [facility] Work Phone: Urine sediment bacteria coun t by microscopy (number/high power field)on 04-26-2022 Bacteria LM.HPF (Urine sed) [#/Area] 0 /[HPF] None Seen [facility] Work Phone: Urine specific gravity measu rementon 04-26-2022 Specific gravity (U) [Rel density] 1.010 1.002-1.030 [facility] Work Phone: Urobilinogen Auto test strip Ql (U)on 04-26-2022 Urobilinogen Ql (U) Normal mg/dl Normal [facility] Work Phone: Glucose Glucometer (BldC) [M ass/Vol]on 03-20-2022 Glucose [Mass/Vol] 153 mg/dL 74-106 [facility] Work Phone: Comment on above: MANAGEMENT OF PATIEN T CARE PER NURSING PROTOCOL No Panel Informationon 03-20 D-Dimer Quantitative (PE/DVT) 0.75 FEU/ug/m 0.27-0.49 [facility] Work Phone: Comment on above: D-Dimer ELEVATED (>0 .49): Additional studies and clinicalassessments are indicated to conclude diagnosis of:Deep Vein Thrombosis (DVT) or Pulmonary Embolism (PE)CRITICAL VALUE VERIFIED. CALLED TO RACIEL JONES03/20/22 0754 Loida Townsend.RESULTS READ BACK BY SAME . Absolute lymphocyte counton 03-19-2022 Lymphocytes Auto (Unsp spec) [#/Vol] 1.56 10*3/uL 0.83-4.51 [facility] Work Phone: Assessment of wrist artery p atency prior to arterial punctureon 03-19-2022 Arterial patency Wrist artery --pre arterial puncture Positive [facility] Work Phone: Base excesson 03-19-2022 Base excess Calc (BldV) [Moles/Vol] 2 mmol/L -2-2 [facility] Work Phone: Basophil percentageon 2021 Basophil percentage 0-5 SEEN /hpf 0-5 [facility] Work Phone: Basophil percentage 25.7 mmol/L 22-26 [facility] Work Phone: Basophils/100 WBC (Bld) 92 % 95-99 [facility] Work Phone: [phone] Basophils/100 WBC (Bld) 0.5 % 0-1 [facility] Work Phone: Bilirubin [Mass/Vol] 1.10 mg/dL 0.20-1.00 [facility] Work Phone: Comment on above: For patients on eltr ombopag therapy, use of Dimension Hubbell TBIL is not recommended. Chloride [Moles/Vol] 106 mmol/L 98-107 [facility] Work Phone: [phone] Eosinophils/100 WBC (Bld) 2.4 % 0-5 [facility] Work Phone: Glucose [Mass/Vol] 167 mg/dL 74-106 [facility] Work Phone: Comment on above: Fasting Glucose resu lt greater than or equal to 126 mg/dL suggests DIABETES MELLITUS per A.D.A. criteria. Lactate [Moles/Vol] 1.2 mmol/L 0.4-2.0 [facility] Work Phone: Neutrophils (Bld) [#/Vol] 7.8 10*3/uL 2.0-7.7 [facility] Work Phone: Neutrophils/100 WBC (Bld) 74.4 % 47-70 [facility] Work Phone: Potassium [Moles/Vol] 3.6 mmol/L 3.5-5.1 [facility] Work Phone: Protein [Mass/Vol] 7.2 g/dL 6.4-8.2 [facility] Work Phone: Sodium [Moles/Vol] 141 mmol/L 136-145 [facility] Work Phone: WBC (Bld) [#/Vol] 10.5 10*3/uL 4.4-11.0 [facility] Work Phone: Bilirubin Test strip Ql (U)o n 03-19-2022 Bilirubin Ql (U) Negative Negative [facility] Work Phone: Blood erythrocytes count (nu mber/volume)on 03-19-2022 RBC (Bld) [#/Vol] 5.05 10*6/uL 4.6-6.2 [facility] Work Phone: Blood hemoglobin measurement (mass/volume)on 03-19-2022 Hemoglobin (Bld) [Mass/Vol] 14.5 g/dL 13.0-16.5 [facility] Work Phone: Blood lymphocytes/100 leukoc yteson 03-19-2022 Lymphocytes/100 WBC (Bld) 14.9 % 19-41 [facility] Work Phone: Blood monocytes/100 leukocyt eson 03-19-2022 Monocytes/100 WBC (Bld) 7.3 % 0-10 [facility] Work Phone: Blood platelet mean volumeon 03-19-2022 Platelet mean volume (Bld) [Entitic vol] 9.1 fL 6.2-12.0 [facility] Work Phone: CO2 (BldA) [Partial pressure ]on 03-19-2022 CO2 (Bld) [Partial pressure] 37.6 mm[Hg] 35-45 [facility] Work Phone: Determination of erythrocyte mean corpuscular volume (MCV)on 03-19-2022 MCV (RBC) [Entitic vol] 83.4 fL 80-94 [facility] Work Phone: Hematocrit Auto (Bld) [Volum e fraction]on 03-19-2022 Hematocrit (Bld) [Volume fraction] 42.1 % 40-54 [facility] Work Phone: INR in Blood by Coagulation assayon 03-19-2022 INR Coag (Bld) [Relative time] 1.1 {INR} [facility] Work Phone: Ketones Test strip Ql (U)on 03-19-2022 Ketones Ql (U) Negative Negative [facility] Work Phone: [phone] Laboratory - Chemistry and C hemistry - challengeon 03-19-2022 ALP [Catalytic activity/Vol] 68 U/L 45-117 [facility] Work Phone: ALT [Catalytic activity/Vol] 14 U/L 16-61 [facility] Work Phone: CO2 [Moles/Vol] 28.0 mmol/L 21.0-32.0 [facility] Work Phone: Globulin (S) [Mass/Vol] 3.5 g/dL 2.2-4.2 [facility] Work Phone: [phone] Urea nitrogen/Creatinine [Mass ratio] 16.4 mg/mg 10-20 [facility] Work Phone: Laboratory - Coagulationon 0 03-19-2022 PT Coag (PPP) [Time] 14.1 s 11.7-14.9 [facility] Work Phone: Laboratory - Hematology and Cell countson 03-19-2022 Erythrocyte distribution width (RBC) [Entitic vol] 41.2 fL 35.1-43.9 [facility] Work Phone: Erythrocyte distribution width (RBC) [Ratio] 13.5 % 11.6-14.6 [facility] Work Phone: Immature granulocytes/100 WBC (Bld) 0.500 % 0.0-0.9 [facility] Work Phone: Comment on above: IG% - Immature Granu locytes (promyelocytes, myelocytes and metamyelocytes) > 1% indicates that a LEFT SHIFT is Present. MCH (RBC) [Entitic mass] 28.7 pg 27.0-32.0 [facility] Work Phone: Nucleated RBC/100 WBC (Bld) [Ratio] 0 % 0-5 [facility] Work Phone: MCHC Auto (RBC) [Mass/Vol]on 03-19-2022 MCHC (RBC) [Mass/Vol] 34.4 g/dL 32-36 [facility] Work Phone: Mucus LM Ql (Urine sed)on Mucus Ql (Urine sed) 0 SEEN /hpf [facility] Work Phone: Nitrite Test strip Ql (U)on 03-19-2022 Nitrite Ql (U) Negative Negative [facility] Work Phone: No Panel Informationon 03-19 SARS-CoV-2 & FLU Antigen (Rapid) [facility] Work Phone: Blood Gas Sample Site L Radial [facility] Work Phone: Blood Gas Specimen Type ART [facility] Work Phone: Blood Gas Total CO2 27 mmol/L [facility] Work Phone: Oxygen Delivery Device Room Air [facility] Work Phone: Estimated Creatinine Clearance Calc 88.88 ml/min [facility] Work Phone: Estimated GFR (MDRD) Amer 87 mL/min >60 [facility] Work Phone: Comment on above: GFR Calc Estimated GFR (MDRD) Non-Af Amer 72 mL/min >60 [facility] Work Phone: Comment on above: Non- GFR Calc Troponin I High Sensitivity < 3 pg/mL 3.0-78.0 [facility] Work Phone: Comment on above: Please Note: New Kira t Units and Gender Specific Reference Ranges. For more information see Policy Stat Procedure Hubbell High Sensitivity Troponin (TNIH) and attachments. Oxygen (BldA) [Partial press ure]on 03-19-2022 Oxygen (Bld) [Partial pressure] 62 mmHG 75-100 [facility] Work Phone: Platelets bldon 03-19-2022 Platelets (Bld) [#/Vol] 278 10*3/uL 150-450 [facility] Work Phone: Protein Test strip Ql (U)on 03-19-2022 Protein Ql (U) 30 mg/dl Negative [facility] Work Phone: Serum or plasma albumin yayo urement (mass/volume)on 03-19-2022 Albumin [Mass/Vol] 3.7 g/dL 3.2-5.0 [facility] Work Phone: Serum or plasma albumin/glob ulin mass ratioon 03-19-2022 Albumin/Globulin [Mass ratio] 1.1 {ratio} 0.9-2.4 [facility] Work Phone: Serum or plasma calcium yayo urement (mass/volume)on 03-19-2022 Calcium [Mass/Vol] 9.0 mg/dL 8.5-10.1 [facility] Work Phone: Serum or plasma creatinine m easurement (mass/volume)on 03-19-2022 Creatinine [Mass/Vol] 1.10 mg/dL 0.70-1.30 [facility] Work Phone: Comment on above: The validity of the calculated GFR & GFRAA in patients over 70 years has not been determined. Clinical correlation is essential. Serum or plasma urea nitroge n measurement (mass/volume)on 03-19-2022 Urea nitrogen [Mass/Vol] 18 mg/dL 7-18 [facility] Work Phone: Squamous epithelial cells de tection in urine sediment by light microscopyon 03-19-2022 Epithelial cells.squamous LM Ql (Urine sed) 0-5 SEEN /hpf 0-5 [facility] Work Phone: Thin prep Papanicolaou smear with manual screeningon 03-19-2022 Thin prep Papanicolaou smear with manual screening 10 U/L 15-37 [facility] Work Phone: Thin prep Papanicolaou smear with manual screening 7 5-15 [facility] Work Phone: Urine blood detectionon 03-01 RBC Ql (U) Negative Negative [facility] Work Phone: RBC Ql (U) 0 SEEN /hpf 0-5 [facility] Work Phone: Urine clarityon 03-19-2022 Clarity (U) Clear Clear [facility] Work Phone: Urine color determinationon 03-19-2022 Color (U) Yellow Yellow [facility] Work Phone: Urine glucose detectionon Glucose Ql (U) Normal mg/dl Normal [facility] Work Phone: Urine leukocyte esterase det ection by dipstickon 03-19-2022 Leukocyte esterase Test strip Ql (U) 25 /ul Negative [facility] Work Phone: Urine pHon 03-19-2022 pH (U) 5.0 [pH] 5.0 - 8.0 [facility] Work Phone: Urine sediment bacteria coun t by microscopy (number/high power field)on 03-19-2022 Bacteria LM.HPF (Urine sed) [#/Area] 0 /[HPF] None Seen [facility] Work Phone: Urine specific gravity measu rementon 03-19-2022 Specific gravity (U) [Rel density] 1.020 1.002-1.030 [facility] Work Phone: Urobilinogen Auto test strip Ql (U)on 03-19-2022 Urobilinogen Ql (U) 1 mg/dl Normal [facility] Work Phone: [phone] pH measurementon 03-19-2022 pH (Unsp spec) 7.44 [pH] 7.35-7.45 [facility] Work Phone: [phone] Absolute lymphocyte counton 03-02-2022 Lymphocytes Auto (Unsp spec) [#/Vol] 1.57 10*3/uL 0.83-4.51 [facility] Work Phone: Basophil percentageon 2021 Basophils/100 WBC (Bld) 0.7 % 0-1 [facility] Work Phone: Bilirubin [Mass/Vol] 0.40 mg/dL 0.20-1.00 [facility] Work Phone: Comment on above: For patients on eltr ombopag therapy, use of Dimension Hubbell TBIL is not recommended. Chloride [Moles/Vol] 108 mmol/L 98-107 [facility] Work Phone: [phone] Eosinophils/100 WBC (Bld) 3.8 % 0-5 [facility] Work Phone: [phone] Glucose [Mass/Vol] 222 mg/dL 74-106 [facility] Work Phone: Comment on above: Glucose result great er than or equal to 200 mg/dLsuggests DIABETES MELLITUS per A.D.A. criteria. Neutrophils (Bld) [#/Vol] 4.8 10*3/uL 2.0-7.7 [facility] Work Phone: [phone] Neutrophils/100 WBC (Bld) 66.5 % 47-70 [facility] Work Phone: Potassium [Moles/Vol] 3.5 mmol/L 3.5-5.1 [facility] Work Phone: Protein [Mass/Vol] 7.2 g/dL 6.4-8.2 [facility] Work Phone: Sodium [Moles/Vol] 141 mmol/L 136-145 [place] [facility] Work Phone: WBC (Bld) [#/Vol] 7.2 10*3/uL 4.4-11.0 [facility] Work Phone: Blood erythrocytes count (nu mber/volume)on 03-02-2022 RBC (Bld) [#/Vol] 4.75 10*6/uL 4.6-6.2 [facility]: Blood hemoglobin measurement (mass/volume)on 03-02-2022 Hemoglobin (Bld) [Mass/Vol] 13.7 g/dL 13.0-16.5 [facility] Work Phone: Blood lymphocytes/100 leukoc yteson 03-02-2022 Lymphocytes/100 WBC (Bld) 21.9 % 19-41 [facility] Work Phone: Blood monocytes/100 leukocyt eson 03-02-2022 Monocytes/100 WBC (Bld) 6.8 % 0-10 [facility] Work Phone: Blood platelet mean volumeon 03-02-2022 Platelet mean volume (Bld) [Entitic vol] 9.6 fL 6.2-12.0 [facility] Work Phone: Determination of erythrocyte mean corpuscular volume (MCV)on 03-02-2022 MCV (RBC) [Entitic vol] 82.1 fL 80-94 [facility] Work Phone: Hematocrit Auto (Bld) [Volum e fraction]on 03-02-2022 Hematocrit (Bld) [Volume fraction] 39.0 % 40-54 [facility] Work Phone: Laboratory - Chemistry and C hemistry - challengeon 03-02-2022 ALP [Catalytic activity/Vol] 69 U/L 45-117 [facility] Work Phone: ALT [Catalytic activity/Vol] 15 U/L 16-61 [facility] Work Phone: [phone] CO2 [Moles/Vol] 26.0 mmol/L 21.0-32.0 [facility] Work Phone: [phone] Globulin (S) [Mass/Vol] 3.5 g/dL 2.2-4.2 [facility] Work Phone: [phone] Urea nitrogen/Creatinine [Mass ratio] 14.9 mg/mg 10-20 [facility] Work Phone: [phone] Laboratory - Hematology and Cell countson 03-02-2022 Erythrocyte distribution width (RBC) [Entitic vol] 40.8 fL 35.1-43.9 [facility] Work Phone: [phone] Erythrocyte distribution width (RBC) [Ratio] 13.9 % 11.6-14.6 [facility] Work Phone: [phone] Immature granulocytes/100 WBC (Bld) 0.300 % 0.0-0.9 [facility] Work Phone: [phone] Comment on above: IG% - Immature Granu locytes (promyelocytes, myelocytes and metamyelocytes) > 1% indicates that a LEFT SHIFT is Present. MCH (RBC) [Entitic mass] 28.8 pg 27.0-32.0 [facility] Work Phone: [phone] Nucleated RBC/100 WBC (Bld) [Ratio] 0 % 0-5 [facility] Work Phone: [phone] MCHC Auto (RBC) [Mass/Vol]on 03-02-2022 MCHC (RBC) [Mass/Vol] 35.1 g/dL 32-36 [facility] Work Phone: [phone] No Panel Informationon 03-02 Estimated Creatinine Clearance Calc 104.00 ml/min [facility] Work Phone: Estimated GFR (MDRD) Amer 105 mL/min >60 [facility] Work Phone: Comment on above: GFR Calc Estimated GFR (MDRD) Non-Af Amer 86 mL/min >60 [facility] Work Phone: Comment on above: Non- GFR Calc Platelets bldon 03-02-2022 Platelets (Bld) [#/Vol] 221 10*3/uL 150-450 [facility] Work Phone: Serum or plasma albumin yayo urement (mass/volume)on 03-02-2022 Albumin [Mass/Vol] 3.7 g/dL 3.2-5.0 [facility] Work Phone: Serum or plasma albumin/glob ulin mass ratioon 03-02-2022 Albumin/Globulin [Mass ratio] 1.1 {ratio} 0.9-2.4 [facility] Work Phone: Serum or plasma calcium yayo urement (mass/volume)on 03-02-2022 Calcium [Mass/Vol] 8.5 mg/dL 8.5-10.1 [facility] Work Phone: Serum or plasma creatinine m easurement (mass/volume)on 03-02-2022 Creatinine [Mass/Vol] 0.94 mg/dL 0.70-1.30 [facility] Work Phone: Comment on above: The validity of the calculated GFR & GFRAA in patients over 70 years has not been determined. Clinical correlation is essential. Serum or plasma urea nitroge n measurement (mass/volume)on 03-02-2022 Urea nitrogen [Mass/Vol] 14 mg/dL 7-18 [facility] Work Phone: Thin prep Papanicolaou smear with manual screeningon 03-02-2022 Thin prep Papanicolaou smear with manual screening 8 U/L 15-37 [facility] Work Phone: Thin prep Papanicolaou smear with manual screening 7 5-15 [facility] Work Phone: Absolute lymphocyte counton 01-31-2022 Lymphocytes Auto (Unsp spec) [#/Vol] 1.83 10*3/uL 0.83-4.51 [facility] Work Phone: Basophil percentageon 2021 Basophils/100 WBC (Bld) 0.4 % 0-1 [facility] Work Phone: Bilirubin [Mass/Vol] 0.60 mg/dL 0.20-1.00 [facility] Work Phone: Comment on above: For patients on eltr ombopag therapy, use of Dimension Hubbell TBIL is not recommended. Chloride [Moles/Vol] 108 mmol/L 98-107 [facility] Work Phone: Eosinophils/100 WBC (Bld) 3.9 % 0-5 [facility] Work Phone: [phone] Glucose [Mass/Vol] 172 mg/dL 74-106 [facility] Work Phone: [phone] Comment on above: Fasting Glucose resu lt greater than or equal to 126 mg/dL suggests DIABETES MELLITUS per A.D.A. criteria. Neutrophils (Bld) [#/Vol] 5.6 10*3/uL 2.0-7.7 [facility] Work Phone: Neutrophils/100 WBC (Bld) 66.2 % 47-70 [facility] Work Phone: Potassium [Moles/Vol] 3.7 mmol/L 3.5-5.1 [facility] Work Phone: Protein [Mass/Vol] 7.0 g/dL 6.4-8.2 [facility] Work Phone: Sodium [Moles/Vol] 140 mmol/L 136-145 [facility] Work Phone: WBC (Bld) [#/Vol] 8.4 10*3/uL 4.4-11.0 [facility] Work Phone: Blood erythrocytes count (nu mber/volume)on 01-31-2022 RBC (Bld) [#/Vol] 5.07 10*6/uL 4.6-6.2 [facility] Work Phone: [phone] Blood hemoglobin measurement (mass/volume)on 01-31-2022 Hemoglobin (Bld) [Mass/Vol] 14.5 g/dL 13.0-16.5 [facility] Work Phone: Blood lymphocytes/100 leukoc yteson 01-31-2022 Lymphocytes/100 WBC (Bld) 21.8 % 19-41 [facility] Work Phone: Blood monocytes/100 leukocyt eson 01-31-2022 Monocytes/100 WBC (Bld) 7.3 % 0-10 [facility] Work Phone: Blood platelet mean volumeon 01-31-2022 Platelet mean volume (Bld) [Entitic vol] 9.1 fL 6.2-12.0 [facility] Work Phone: [phone] Determination of erythrocyte mean corpuscular volume (MCV)on 01-31-2022 MCV (RBC) [Entitic vol] 80.9 fL 80-94 [facility] Work Phone: [phone] Hematocrit Auto (Bld) [Volum e fraction]on 01-31-2022 Hematocrit (Bld) [Volume fraction] 41.0 % 40-54 [facility] Work Phone: [phone] Laboratory - Chemistry and C hemistry - challengeon 01-31-2022 ALP [Catalytic activity/Vol] 68 U/L 45-117 [facility] Work Phone: ALT [Catalytic activity/Vol] 14 U/L 16-61 [facility] Work Phone: [phone] CO2 [Moles/Vol] 26.0 mmol/L 21.0-32.0 [facility] Work Phone: [phone] Globulin (S) [Mass/Vol] 3.3 g/dL 2.2-4.2 [facility] Work Phone: [phone] Urea nitrogen/Creatinine [Mass ratio] 18.0 mg/mg 10-20 [facility] Work Phone: Laboratory - Hematology and Cell countson 01-31-2022 Erythrocyte distribution width (RBC) [Entitic vol] 39.8 fL 35.1-43.9 [facility] Work Phone: Erythrocyte distribution width (RBC) [Ratio] 13.8 % 11.6-14.6 [facility] Work Phone: Immature granulocytes/100 WBC (Bld) 0.400 % 0.0-0.9 [facility] Work Phone: Comment on above: IG% - Immature Granu locytes (promyelocytes, myelocytes and metamyelocytes) > 1% indicates that a LEFT SHIFT is Present. MCH (RBC) [Entitic mass] 28.6 pg 27.0-32.0 [facility] Work Phone: Nucleated RBC/100 WBC (Bld) [Ratio] 0 % 0-5 [facility] Work Phone: MCHC Auto (RBC) [Mass/Vol]on 01-31-2022 MCHC (RBC) [Mass/Vol] 35.4 g/dL 32-36 [facility] Work Phone: No Panel Informationon 01-31 Estimated Creatinine Clearance Calc 125.34 ml/min [facility] Work Phone: Estimated GFR (MDRD) Amer 131 mL/min >60 [facility] Work Phone: Comment on above: GFR Calc Estimated GFR (MDRD) Non-Af Amer 108 mL/min >60 [facility] Work Phone: Comment on above: Non- GFR Calc Platelets bldon 01-31-2022 Platelets (Bld) [#/Vol] 222 10*3/uL 150-450 [facility] Work Phone: Serum or plasma albumin yayo urement (mass/volume)on 01-31-2022 Albumin [Mass/Vol] 3.7 g/dL 3.2-5.0 [facility] Work Phone: Serum or plasma albumin/glob ulin mass ratioon 01-31-2022 Albumin/Globulin [Mass ratio] 1.1 {ratio} 0.9-2.4 [facility] Work Phone: Serum or plasma calcium yayo urement (mass/volume)on 01-31-2022 Calcium [Mass/Vol] 8.4 mg/dL 8.5-10.1 [facility] Work Phone: Serum or plasma creatinine m easurement (mass/volume)on 01-31-2022 Creatinine [Mass/Vol] 0.78 mg/dL 0.70-1.30 [facility] Work Phone: Comment on above: The validity of the calculated GFR & GFRAA in patients over 70 years has not been determined. Clinical correlation is essential. Serum or plasma urea nitroge n measurement (mass/volume)on 01-31-2022 Urea nitrogen [Mass/Vol] 14 mg/dL 7-18 [facility] Work Phone: Thin prep Papanicolaou smear with manual screeningon 01-31-2022 Thin prep Papanicolaou smear with manual screening 13 U/L 15-37 [facility] Work Phone: Thin prep Papanicolaou smear with manual screening 6 5-15 [facility] Work Phone: Absolute lymphocyte counton 01-08-2022 Lymphocytes Auto (Unsp spec) [#/Vol] 1.33 10*3/uL 0.83-4.51 [facility] Work Phone: Basophil percentageon 2021 Basophils/100 WBC (Bld) 0.3 % 0-1 [facility] Work Phone: Bilirubin [Mass/Vol] 0.60 mg/dL 0.20-1.00 [facility] Work Phone: Comment on above: For patients on eltr ombopag therapy, use of Dimension Hubbell TBIL is not recommended. Chloride [Moles/Vol] 104 mmol/L 98-107 [facility] Work Phone: Eosinophils/100 WBC (Bld) 0.5 % 0-5 [facility] Work Phone: Glucose [Mass/Vol] 294 mg/dL 74-106 [facility] Work Phone: Comment on above: Glucose result great er than or equal to 200 mg/dLsuggests DIABETES MELLITUS per A.D.A. criteria. Neutrophils (Bld) [#/Vol] 8.1 10*3/uL 2.0-7.7 [facility] Work Phone: Neutrophils/100 WBC (Bld) 80.9 % 47-70 [facility] Work Phone: Potassium [Moles/Vol] 3.6 mmol/L 3.5-5.1 [facility] Work Phone: Protein [Mass/Vol] 7.6 g/dL 6.4-8.2 [facility] Work Phone: Sodium [Moles/Vol] 135 mmol/L 136-145 [facility] Work Phone: WBC (Bld) [#/Vol] 10.0 10*3/uL 4.4-11.0 [facility] Work Phone: Blood erythrocytes count (nu mber/volume)on 01-08-2022 RBC (Bld) [#/Vol] 5.06 10*6/uL 4.6-6.2 [facility] Work Phone: Blood hemoglobin measurement (mass/volume)on 01-08-2022 Hemoglobin (Bld) [Mass/Vol] 14.6 g/dL 13.0-16.5 [facility] Work Phone: Blood lymphocytes/100 leukoc yteson 01-08-2022 Lymphocytes/100 WBC (Bld) 13.4 % 19-41 [facility] Work Phone: Blood monocytes/100 leukocyt eson 01-08-2022 Monocytes/100 WBC (Bld) 4.4 % 0-10 [facility] Work Phone: Blood platelet mean volumeon 01-08-2022 Platelet mean volume (Bld) [Entitic vol] 9.2 fL 6.2-12.0 [facility] Work Phone: Determination of erythrocyte mean corpuscular volume (MCV)on 01-08-2022 MCV (RBC) [Entitic vol] 81.0 fL 80-94 [facility] Work Phone: [phone] Hematocrit Auto (Bld) [Volum e fraction]on 01-08-2022 Hematocrit (Bld) [Volume fraction] 41.0 % 40-54 [facility] Work Phone: [phone] Laboratory - Chemistry and C hemistry - challengeon 01-08-2022 ALP [Catalytic activity/Vol] 79 U/L 45-117 [facility] Work Phone: ALT [Catalytic activity/Vol] 16 U/L 16-61 [facility] Work Phone: [phone] CO2 [Moles/Vol] 25.0 mmol/L 21.0-32.0 [facility] Work Phone: [phone] Globulin (S) [Mass/Vol] 3.6 g/dL 2.2-4.2 [facility] Work Phone: [phone] Urea nitrogen/Creatinine [Mass ratio] 16.8 mg/mg 10-20 [facility] Work Phone: [phone] Laboratory - Hematology and Cell countson 01-08-2022 Erythrocyte distribution width (RBC) [Entitic vol] 40.0 fL 35.1-43.9 [facility] [facility]: [phone] Erythrocyte distribution width (RBC) [Ratio] 13.9 % 11.6-14.6 [facility] Work Phone: [phone] Immature granulocytes/100 WBC (Bld) 0.500 % 0.0-0.9 [facility] Work Phone: [phone] Comment on above: IG% - Immature Granu locytes (promyelocytes, myelocytes and metamyelocytes) > 1% indicates that a LEFT SHIFT is Present. MCH (RBC) [Entitic mass] 28.9 pg 27.0-32.0 [facility] Work Phone: Nucleated RBC/100 WBC (Bld) [Ratio] 0 % 0-5 [facility] Work Phone: MCHC Auto (RBC) [Mass/Vol]on 01-08-2022 MCHC (RBC) [Mass/Vol] 35.6 g/dL 32-36 [facility] Work Phone: No Panel Informationon 01-08 Estimated Creatinine Clearance Calc 96.79 ml/min [facility] Work Phone: Estimated GFR (MDRD) Amer 96 mL/min >60 [facility] Work Phone: Comment on above: GFR Calc Estimated GFR (MDRD) Non-Af Amer 80 mL/min >60 [facility] Work Phone: Comment on above: Non- GFR Calc Platelets bldon 01-08-2022 Platelets (Bld) [#/Vol] 228 10*3/uL 150-450 [facility] Work Phone: Serum or plasma albumin yayo urement (mass/volume)on 01-08-2022 Albumin [Mass/Vol] 4.0 g/dL 3.2-5.0 [facility] Work Phone: Serum or plasma albumin/glob ulin mass ratioon 01-08-2022 Albumin/Globulin [Mass ratio] 1.1 {ratio} 0.9-2.4 [facility] Work Phone: Serum or plasma calcium yayo urement (mass/volume)on 01-08-2022 Calcium [Mass/Vol] 9.3 mg/dL 8.5-10.1 [facility] Work Phone: Serum or plasma creatinine m easurement (mass/volume)on 01-08-2022 Creatinine [Mass/Vol] 1.01 mg/dL 0.70-1.30 [facility] Work Phone: Comment on above: The validity of the calculated GFR & GFRAA in patients over 70 years has not been determined. Clinical correlation is essential. Serum or plasma urea nitroge n measurement (mass/volume)on 01-08-2022 Urea nitrogen [Mass/Vol] 17 mg/dL 7-18 [facility] Work Phone: [phone] Thin prep Papanicolaou smear with manual screeningon 01-08-2022 Thin prep Papanicolaou smear with manual screening 8 U/L 15-37 [facility] Work Phone: Thin prep Papanicolaou smear with manual screening 6 5-15 [facility] Work Phone: Absolute lymphocyte counton 01-07-2022 Lymphocytes Auto (Unsp spec) [#/Vol] 2.13 10*3/uL 0.83-4.51 [facility] Work Phone: [phone] Basophil percentageon 2021 Basophils/100 WBC (Bld) 0.3 % 0-1 [facility] Work Phone: [phone] Bilirubin [Mass/Vol] 0.60 mg/dL 0.20-1.00 [facility] Work Phone: [phone] Comment on above: For patients on eltr ombopag therapy, use of Dimension Hubbell TBIL is not recommended. Chloride [Moles/Vol] 107 mmol/L 98-107 [facility] Work Phone: [phone] Eosinophils/100 WBC (Bld) 2.7 % 0-5 [facility] Work Phone: [phone] Glucose [Mass/Vol] 150 mg/dL 74-106 [facility] Work Phone: Comment on above: Fasting Glucose resu lt greater than or equal to 126 mg/dL suggests DIABETES MELLITUS per A.D.A. criteria. Neutrophils (Bld) [#/Vol] 3.5 10*3/uL 2.0-7.7 [facility] Work Phone: [phone] Neutrophils/100 WBC (Bld) 55.6 % 47-70 [facility] Work Phone: [phone] Potassium [Moles/Vol] 3.4 mmol/L 3.5-5.1 [facility] Work Phone: [phone] Protein [Mass/Vol] 6.3 g/dL 6.4-8.2 [facility] Work Phone: [phone] Sodium [Moles/Vol] 139 mmol/L 136-145 [facility] Work Phone: [phone] WBC (Bld) [#/Vol] 6.3 10*3/uL 4.4-11.0 [facility] Work Phone: [phone] Blood erythrocytes count (nu mber/volume)on 01-07-2022 RBC (Bld) [#/Vol] 4.65 10*6/uL 4.6-6.2 [facility] Work Phone: Blood hemoglobin measurement (mass/volume)on 01-07-2022 Hemoglobin (Bld) [Mass/Vol] 13.5 g/dL 13.0-16.5 [facility] Work Phone: Blood lymphocytes/100 leukoc yteson 01-07-2022 Lymphocytes/100 WBC (Bld) 33.9 % 19-41 [facility] Work Phone: Blood monocytes/100 leukocyt eson 01-07-2022 Monocytes/100 WBC (Bld) 7.2 % 0-10 [facility] Work Phone: [phone] Blood platelet mean volumeon 01-07-2022 Platelet mean volume (Bld) [Entitic vol] 9.4 fL 6.2-12.0 [facility] Work Phone: Determination of erythrocyte mean corpuscular volume (MCV)on 01-07-2022 MCV (RBC) [Entitic vol] 82.2 fL 80-94 [facility] Work Phone: [phone] Glucose Glucometer (BldC) [M ass/Vol]on 01-07-2022 Glucose [Mass/Vol] 161 mg/dL 74-106 [facility] Work Phone: Comment on above: MANAGEMENT OF PATIEN T CARE PER NURSING PROTOCOL Hematocrit Auto (Bld) [Volum e fraction]on 01-07-2022 Hematocrit (Bld) [Volume fraction] 38.2 % 40-54 [facility] Work Phone: [phone] Laboratory - Chemistry and C hemistry - challengeon 01-07-2022 ALP [Catalytic activity/Vol] 64 U/L 45-117 [facility] Work Phone: [phone] ALT [Catalytic activity/Vol] 11 U/L 16-61 [facility] Work Phone: [phone] CO2 [Moles/Vol] 27.0 mmol/L 21.0-32.0 [facility] Work Phone: [phone] Globulin (S) [Mass/Vol] 3.1 g/dL 2.2-4.2 [facility] Work Phone: [phone] Urea nitrogen/Creatinine [Mass ratio] 12.9 mg/mg 10-20 [facility] Work Phone: [phone] Laboratory - Hematology and Cell countson 01-07-2022 Erythrocyte distribution width (RBC) [Entitic vol] 40.8 fL 35.1-43.9 [facility] Work Phone: [phone] Erythrocyte distribution width (RBC) [Ratio] 13.9 % 11.6-14.6 [facility] Work Phone: [phone] Immature granulocytes/100 WBC (Bld) 0.300 % 0.0-0.9 [facility] Work Phone: [phone] Comment on above: IG% - Immature Granu locytes (promyelocytes, myelocytes and metamyelocytes) > 1% indicates that a LEFT SHIFT is Present. MCH (RBC) [Entitic mass] 29.0 pg 27.0-32.0 [facility] Work Phone: [phone] Nucleated RBC/100 WBC (Bld) [Ratio] 0 % 0-5 [facility] Work Phone: [phone] MCHC Auto (RBC) [Mass/Vol]on 01-07-2022 MCHC (RBC) [Mass/Vol] 35.3 g/dL 32-36 [facility] Work Phone: [phone] No Panel Informationon 01-07 Estimated Creatinine Clearance Calc 139.66 ml/min [facility] Work Phone: Estimated GFR (MDRD) Amer 148 mL/min >60 [facility] Work Phone: Comment on above: GFR Calc Estimated GFR (MDRD) Non-Af Amer 123 mL/min >60 [facility] Work Phone: Comment on above: Non- GFR Calc Platelets bldon 01-07-2022 Platelets (Bld) [#/Vol] 208 10*3/uL 150-450 [facility] Work Phone: Serum or plasma albumin yayo urement (mass/volume)on 01-07-2022 Albumin [Mass/Vol] 3.2 g/dL 3.2-5.0 [facility] Work Phone: Serum or plasma albumin/glob ulin mass ratioon 01-07-2022 Albumin/Globulin [Mass ratio] 1.0 {ratio} 0.9-2.4 [facility] Work Phone: Serum or plasma calcium yayo urement (mass/volume)on 01-07-2022 Calcium [Mass/Vol] 8.4 mg/dL 8.5-10.1 [facility] Work Phone: Serum or plasma creatinine m easurement (mass/volume)on 01-07-2022 Creatinine [Mass/Vol] 0.70 mg/dL 0.70-1.30 [facility] Work Phone: Comment on above: The validity of the calculated GFR & GFRAA in patients over 70 years has not been determined. Clinical correlation is essential. Serum or plasma urea nitroge n measurement (mass/volume)on 01-07-2022 Urea nitrogen [Mass/Vol] 9 mg/dL 7-18 [facility] Work Phone: Thin prep Papanicolaou smear with manual screeningon 01-07-2022 Thin prep Papanicolaou smear with manual screening 8 U/L 15-37 [facility] Work Phone: Thin prep Papanicolaou smear with manual screening 5 5-15 [facility] Work Phone: Erythrocyte sedimentation ra mau 01-05-2022 ESR (Bld) [Velocity] 4 mm/h 0-20 [facility] Work Phone: Serum or plasma C reactive p rotein measurement (mass/volume)on 01-05-2022 CRP [Mass/Vol] mg/L 0.0-3.0 [facility] Work Phone: Comment on above: C-Reactive Protein ( CRP) provides useful information for thediagnosis, therapy and monitoring of inflammatory processesand associated diseases. For the evaluation of Relative Riskfor Cardiovascular Disease, a High Sensitivity CRP (HSCRP)should be ordered. Thin prep Papanicolaou smear with manual screeningon 01-05-2022 Thin prep Papanicolaou smear with manual screening 192 U/L 87-241 [facility] Work Phone: Basophil percentageon 2021 Basophil percentage 0 SEEN /hpf 0-5 [facility] Work Phone: Lactate [Moles/Vol] 1.1 mmol/L 0.4-2.0 [facility] Work Phone: Bilirubin Test strip Ql (U)o n 01-04-2022 Bilirubin Ql (U) Negative Negative [facility] Work Phone: Ketones Test strip Ql (U)on 01-04-2022 Ketones Ql (U) 50 mg/dl Negative [facility] Work Phone: Laboratory - Chemistry and C hemistry - challengeon 01-04-2022 Lipase [Catalytic activity/Vol] 38 U/L 73-393 [facility] Work Phone: Mucus LM Ql (Urine sed)on Mucus Ql (Urine sed) 0 SEEN /hpf [facility] Work Phone: Nitrite Test strip Ql (U)on 01-04-2022 Nitrite Ql (U) Negative Negative [facility] Work Phone: Protein Test strip Ql (U)on 01-04-2022 Protein Ql (U) 15 mg/dl Negative [facility] Work Phone: Squamous epithelial cells de tection in urine sediment by light microscopyon 01-04-2022 Epithelial cells.squamous LM Ql (Urine sed) 0 SEEN /hpf 0-5 [facility] Work Phone: Urine blood detectionon 03-0 RBC Ql (U) Negative Negative [facility] Work Phone: RBC Ql (U) 0 SEEN /hpf 0-5 [facility] Work Phone: Urine clarityon 01-04-2022 Clarity (U) Clear Clear [facility] Work Phone: Urine color determinationon 01-04-2022 Color (U) Yellow Yellow [facility] Work Phone: Urine glucose detectionon Glucose Ql (U) 1000 mg/dl Normal [facility] Work Phone: Urine leukocyte esterase det ection by dipstickon 01-04-2022 Leukocyte esterase Test strip Ql (U) Negative Negative [facility] Work Phone: Urine pHon 01-04-2022 pH (U) 5.0 [pH] 5.0 - 8.0 [facility] Work Phone: Urine sediment bacteria coun t by microscopy (number/high power field)on 01-04-2022 Bacteria LM.HPF (Urine sed) [#/Area] 0 /[HPF] None Seen [facility] Work Phone: Urine specific gravity measu rementon 01-04-2022 Specific gravity (U) [Rel density] 1.010 1.002-1.030 [facility] Work Phone: Urobilinogen Auto test strip Ql (U)on 01-04-2022 Urobilinogen Ql (U) Normal mg/dl Normal [facility] Work Phone: Basophil percentageon 2021 Basophil percentage TNP [facility] Work Phone: Comment on above: Test not performedhe molysis present redraw for k if indicatedPrevious reported result: TNP mmol/LEdited by: VEL on 11/12/21:2009 Chloride [Moles/Vol] 102 mmol/L 98-107 [facility] Work Phone: Glucose [Mass/Vol] 326 mg/dL 74-106 [facility] Work Phone: Comment on above: Glucose result great er than or equal to 200 mg/dLsuggests DIABETES MELLITUS per A.D.A. criteria. Sodium [Moles/Vol] 135 mmol/L 136-145 [facility] Work Phone: Glucose Glucometer (BldC) [M ass/Vol]on 11-12-2021 Glucose [Mass/Vol] 324 mg/dL 70-110 [facility] Work Phone: Comment on above: MANAGEMENT OF PATIEN T CARE PER NURSING PROTOCOL Laboratory - Chemistry and C hemistry - challengeon 11-12-2021 CO2 [Moles/Vol] 26.0 mmol/L 21.0-32.0 [facility] Work Phone: Urea nitrogen/Creatinine [Mass ratio] 13.4 mg/mg 10-20 [facility] Work Phone: No Panel Informationon 11-12 Estimated Creatinine Clearance Calc 119.22 ml/min [facility] Work Phone: Estimated GFR (MDRD) Amer 122 mL/min >60 [facility] Work Phone: Comment on above: GFR Calc Estimated GFR (MDRD) Non-Af Amer 101 mL/min >60 [facility] Work Phone: Comment on above: Non- GFR Calc Serum or plasma calcium yayo urement (mass/volume)on 11-12-2021 Calcium [Mass/Vol] 8.6 mg/dL 8.5-10.1 [facility] Work Phone: Serum or plasma creatinine m easurement (mass/volume)on 11-12-2021 Creatinine [Mass/Vol] 0.82 mg/dL 0.70-1.30 [facility] Work Phone: Comment on above: The validity of the calculated GFR & GFRAA in patients over 70 years has not been determined. Clinical correlation is essential. Serum or plasma urea nitroge n measurement (mass/volume)on 11-12-2021 Urea nitrogen [Mass/Vol] 11 mg/dL 7-18 [facility] Work Phone: Thin prep Papanicolaou smear with manual screeningon 11-12-2021 Thin prep Papanicolaou smear with manual screening 7 5-15 [facility] Work Phone: Glucose,Bedsideon 10-07-2019 Glucose [Mass/Vol] 240 mg/dL High 70-100 [facility] Comment on above: Result Comment: Test performed by glucose meter. Results may be 10%-15% lower than serum/plasma values. (CLIA ID [id number]) Performed By: #### B MP3, HEMDF #### [facility] [address] [place] [address] POCT Glucoseon 10-07-2019 Glucose [Mass/Vol] 240 mg/dL High 70 - 100 mg/dL [place], [place] Comment on above: Test performed by gl ucose meter. Results may be 10%-15% lower than serum/plasma values. (CLIA ID [id number]) Interpretation and review of laboratory results Abnormal [place], [place] Test Performed by [facility], [facility] [place] [address] [place], [place] Basic Metabolic Panelon 12 Anion gap [Moles/Vol] 7 Normal [facility] Comment on above: Performed By: #### H EMDF, BMP3M, MG3 #### [facility] [address] [place] [address] Calcium [Mass/Vol] 9.0 mg/dL Normal 8.4-10.4 [facility] Comment on above: Performed By: #### H EMDF, BMP3M, MG3 #### [facility] [address] [place] [address] CO2 [Moles/Vol] 28 mmol/L Normal 22-30 [facility] Comment on above: Performed By: #### H EMDF, BMP3M, MG3 #### [place] [address] [address] [place], [place] Creatinine [Mass/Vol] 0.73 mg/dL Normal 0.52-1.25 [facility] Comment on above: Performed By: #### H EMDF, BMP3M, MG3 #### [place] [address] [address] [place] GFR/1.73 sq M predicted among blacks MDRD (S/P/Bld) [Vol rate/Area] mL/min/{1.73_m2} Normal >60 [facility] Comment on above: Performed By: #### H EMDF, BMP3M, MG3 #### [place] [address] [address] [place], [place] GFR/1.73 sq M predicted among non-blacks MDRD (S/P/Bld) [Vol rate/Area] mL/min/{1.73_m2} Normal >60 [facility] Comment on above: Result Comment: Sour ce- MDRD equation with creatinine calibration to IDMS(NKDEP) eGFR not recommended for drug dose adjustment Performed By: #### H EMDF, BMP3M, MG3 #### [place] [address] [address] [place], [place] Glucose [Mass/Vol] 194 mg/dL High 70-100 [facility] Comment on above: Performed By: #### H EMDF, BMP3M, MG3 #### [place] [address] [address] [place], [place] Urea nitrogen [Mass/Vol] 10 mg/dL Normal 7-20 [facility] Comment on above: Performed By: #### H EMDF, BMP3M, MG3 #### [place] [address] [address] [place], [place] Chloride [Moles/Vol] 105 mmol/L Normal 98-107 [facility] Comment on above: Performed By: #### H EMDF, BMP3M, MG3 #### [place] [address] [address] [place] Potassium [Moles/Vol] 3.4 mmol/L Low 3.5-5.1 [facility] Comment on above: Performed By: #### H ATIYA BOURNE3Sunny, MG3 #### [facility] [address] [place] [address] Sodium [Moles/Vol] 140 mmol/L Normal 135-145 [facility] Comment on above: Performed By: #### H DAYANNA BOURNE, MG3 #### [facility] [address] [place] [address] Basic Metabolic Panel w/ Ref pietro to MGon 10-06-2019 Anion gap [Moles/Vol] 7 mmol/L [place], [place] Calcium [Mass/Vol] 9.0 mg/dL 8.4 - 10. 4 mg/dL [place], [place] Chloride [Moles/Vol] 105 mmol/L 98 - 10 7 mmol/L [place] CO2 [Moles/Vol] 28 mmol/L 22 - 30 mmol/L [place] Creatinine [Mass/Vol] 0.73 mg/dL 0.52 - 1.25 mg/dL [place] EGFR IF NonAfrican [place] >60.0 >60 mL/min [place], [place] Comment on above: Source- MDRD equatio n with creatinine calibration to IDMS(NKDEP) eGFR not recommended for drug dose adjustment GFR/1.73 sq M predicted among blacks MDRD (S/P/Bld) [Vol rate/Area] mL/min/{1.73_m2} >60 mL/min [place] Glucose [Mass/Vol] 194 mg/dL High 70 - 100 mg/dL [place] Potassium [Moles/Vol] 3.4 mmol/L Low 3.5 - 5.1 mmol/L [place] Sodium [Moles/Vol] 140 mmol/L 135 - 145 mmol/L [place] Urea nitrogen [Mass/Vol] 10 mg/dL 7 - 20 mg/dL [place] CBC auto differentialon 120 Absolute Baso # 0.1 10*3/uL 0 - 0.2 10*3/uL [place] Absolute Neut # 4.4 10*3/uL 1.8 - 7 10*3/uL [place] Basophils/100 WBC (Bld) 0.8 % 0 - 2 % [place], [place] Eosinophils (Bld) [#/Vol] 0.2 10*3/uL 0 - 0.5 10*3/uL [place] Eosinophils/100 WBC (Bld) 2.8 % 1 - 6 % [place] Erythrocyte distribution width (RBC) [Ratio] 13.7 % 11.5 - 14.5 % [place] Granulocytes/100 WBC (Bld) 60.0 % 40 - 80 % [place] Hematocrit (Bld) [Volume fraction] 44.1 % 40 - 52 % [place] Hemoglobin (Bld) [Mass/Vol] 15.5 g/dL 13 - 18 g/dL [place] Lymphocytes (Bld) [#/Vol] 2.3 10*3/uL 1 - 4.3 10*3/uL [place] Lymphocytes/100 WBC (Bld) 30.7 % 20 - 40 % [place] MCH (RBC) [Entitic mass] 29.2 pg 26 - 34 pg [place] MCHC (RBC) [Mass/Vol] 35.2 % 32 - 36 % [place], [place] MCV (RBC) [Entitic vol] 82.9 fL 80 - 98 fL [place], [place] Monocytes (Bld) [#/Vol] 0.4 10*3/uL 0 - 0.8 10*3/uL [place], [place] Monocytes/100 WBC (Bld) 5.7 % 2 - 10 % [place], [place] Platelet mean volume (Bld) [Entitic vol] 7.5 fL 7.4 - 10.4 fL [place] Platelets (Bld) [#/Vol] 196 10*3/uL 140 - 440 10*3/uL [place] RBC (Bld) [#/Vol] 5.32 10*6/uL 4.4 - 5.9 10*6/uL [facility], [place] WBC (Bld) [#/Vol] 7.4 10*3/uL 3.6 - 10.7 10*3/uL [facility], [place] Test Performed by [facility], [address] [place] [address] [place], [place] Glucose,Bedsideon 10-06-2019 Glucose [Mass/Vol] 257 mg/dL [address] Comment on above: Result Comment: Test performed by glucose meter. Results may be 10%-15% lower than serum/plasma values. (CLIA ID [id number]) Performed By: #### B MP3, HEMDF #### [place] [address] [place] [address] Glucose [Mass/Vol] 288 mg/dL [facility] [address] Comment on above: Result Comment: Test performed by glucose meter. Results may be 10%-15% lower than serum/plasma values. (CLIA ID [id number]) Performed By: #### B MP3, HEMDF #### [facility] [address] [place] [address] Glucose [Mass/Vol] 198 mg/dL [address] Comment on above: Result Comment: Test performed by glucose meter. Results may be 10%-15% lower than serum/plasma values. (CLIA ID [id number]) Performed By: #### B GLU #### [place] [address] [place] [address] Glucose [Mass/Vol] 226 mg/dL [facility] [address] Comment on above: Result Comment: Test performed by glucose meter. Results may be 10%-15% lower than serum/plasma values. (CLIA ID [id number]) Performed By: #### B GLU #### [place] [address] [place] [address] Glucose [Mass/Vol] 207 mg/dL [facility] [address] Comment on above: Result Comment: Test performed by glucose meter. Results may be 10%-15% lower than serum/plasma values. (CLIA ID [id number]) Performed By: #### B GLU #### [facility] [address] [place], [place] Glucose [Mass/Vol] 200 mg/dL High 70-100 [facility] Comment on above: Result Comment: Test performed by glucose meter. Results may be 10%-15% lower than serum/plasma values. (CLIA ID [id number]) Performed By: #### B GLU #### [facility] [address] [place], [place] Hemogram w/ Autodiffon 10-06 Abs Baso Cnt 0.1 10*3/uL Normal 0.0-0.2 [facility] Comment on above: Performed By: #### H EMDF, BMP3M, MG3 #### [place] [address] [address] [place], [place] Abs Neutrophile Cnt 4.4 10*3/uL Normal 1.8-7.0 [facility] Comment on above: Performed By: #### H EMDF, BMP3M, MG3 #### [place] [address] [address] [place], [place] Basophils/100 WBC (Bld) 0.8 % Normal 0.0-2.0 [facility] Comment on above: Performed By: #### H EMDF, BMP3M, MG3 #### [place] [address] [address] [place] Eosinophils (Bld) [#/Vol] 0.2 10*3/uL Normal 0.0-0.5 [facility] Comment on above: Performed By: #### H EMDF, BMP3M, MG3 #### [place] [address] [address] [place] Eosinophils/100 WBC (Bld) 2.8 % Normal 1.0-6.0 [facility] Comment on above: Performed By: #### H EMDF, BMP3M, MG3 #### [place] [address] [address] [place] Erythrocyte distribution width (RBC) [Ratio] 13.7 % Normal 11.5-14.5 [facility] Comment on above: Performed By: #### H EMDF, BMP3M, MG3 #### [address] Granulocytes/100 WBC (Bld) 60.0 % Normal 40.0-80.0 [facility] Comment on above: Performed By: #### H EMDF, BMP3M, MG3 #### [address] Hematocrit (Bld) [Volume fraction] 44.1 % Normal 40.0-52.0 [facility] Comment on above: Performed By: #### H EMDF, BMP3M, MG3 #### [address] Hemoglobin (Bld) [Mass/Vol] 15.5 g/dL Normal 13.0-18.0 [facility] Comment on above: Performed By: #### H EMDF, BMP3M, MG3 #### [address] Lymphocytes (Bld) [#/Vol] 2.3 10*3/uL Normal 1.0-4.3 [facility] Comment on above: Performed By: #### H EMDF, BMP3M, MG3 #### [address] Lymphocytes/100 WBC (Bld) 30.7 % Normal 20.0-40.0 [facility] Comment on above: Performed By: #### H EMDF, BMP3M, MG3 #### [address] MCH (RBC) [Entitic mass] 29.2 pg Normal 26.0-34.0 [facility] Comment on above: Performed By: #### H EMDF, BMP3M, MG3 #### [address] MCHC (RBC) [Mass/Vol] 35.2 % Normal 32.0-36.0 [facility] Comment on above: Performed By: #### H EMDF, BMP3M, MG3 #### [address] MCV (RBC) [Entitic vol] 82.9 fL Normal 80.0-98.0 [facility] Comment on above: Performed By: #### H EMDF, BMP3M, MG3 #### [address] Monocytes (Bld) [#/Vol] 0.4 10*3/uL Normal 0.0-0.8 [facility] Comment on above: Performed By: #### H EMDF, BMP3M, MG3 #### [address] Monocytes/100 WBC (Bld) 5.7 % Normal 2.0-10.0 [facility] Comment on above: Performed By: #### H EMDF, BMP3M, MG3 #### [address] Platelet mean volume (Bld) [Entitic vol] 7.5 fL Normal 7.4-10.4 [facility] Comment on above: Performed By: #### H EMDF, BMP3M, MG3 #### [address] Platelets (Bld) [#/Vol] 196 10*3/uL Normal 140-440 [facility] Comment on above: Performed By: #### H EMDF, BMP3M, MG3 #### [address] [place] RBC (Bld) [#/Vol] 5.32 10*6/uL Normal 4.40-5.90 [facility] Comment on above: Performed By: #### H EMDF, BMP3M, MG3 #### [address] WBC (Bld) [#/Vol] 7.4 10*3/uL Normal 3.6-10.7 [facility] Comment on above: Performed By: #### H EMDF, BMP3M, MG3 #### [facility] [address] [place] [address] Magnesiumon 10-06-2019 Magnesium [Mass/Vol] 1.5 mg/dL Low 1.6-2.3 [facility] Comment on above: Performed By: #### H EMDF, BMP3M, MG3 #### [facility] [address] [place] [address] Magnesium [Mass/Vol] 1.5 mg/dL Low 1.6 - 2 .3 mg/dL [facility]- [place], [place] Otheron 10-06-2019 Interpretation and review of laboratory results Abnormal [facility]- [place], [place] Test Performed by [facility], [facility] [place] [address] [facility] [place], [place] POCT Glucoseon 10-06-2019 Glucose [Mass/Vol] 257 mg/dL High 70 - 100 mg/dL [facility], [place] Comment on above: Test performed by gl ucose meter. Results may be 10%-15% lower than serum/plasma values. (CLIA ID [id number]) Interpretation and review of laboratory results Abnormal [facility]- [place] Test Performed by [facility], [facility] [place] [address] [facility] [place], [place] Glucose [Mass/Vol] 288 mg/dL High 70 - 100 mg/dL [facility]- [place], [place] Comment on above: Test performed by gl ucose meter. Results may be 10%-15% lower than serum/plasma values. (CLIA ID [id number]) Interpretation and review of laboratory results Abnormal [facility] Test Performed by [facility], [address] [place] [address] [facility] [place] Glucose [Mass/Vol] 198 mg/dL High 70 - 100 mg/dL [facility] [place], [place] Comment on above: Test performed by gl ucose meter. Results may be 10%-15% lower than serum/plasma values. (CLIA ID [id number]) Interpretation and review of laboratory results Abnormal [facility] Test Performed by [facility], [address] [place] [address] [facility] [place] Glucose [Mass/Vol] 226 mg/dL High 70 - 100 mg/dL [facility] [place] Comment on above: Test performed by gl ucose meter. Results may be 10%-15% lower than serum/plasma values. (CLIA ID [id number]) Interpretation and review of laboratory results Abnormal [facility] Test Performed by [facility], [facility] [place] [address] [facility]- [place] Glucose [Mass/Vol] 207 mg/dL High 70 - 100 mg/dL [facility] Comment on above: Test performed by gl ucose meter. Results may be 10%-15% lower than serum/plasma values. (CLIA ID [id number]) Interpretation and review of laboratory results Abnormal [facility] Test Performed by [facility], [address] [place] [address] [facility]- [place] Glucose [Mass/Vol] 200 mg/dL High 70 - 100 mg/dL [facility]- [place] Comment on above: Test performed by gl ucose meter. Results may be 10%-15% lower than serum/plasma values. (CLIA ID [id number]) Interpretation and review of laboratory results Abnormal [facility]- [place] Test Performed by [facility], [address] [place] [address] [facility]- [place] Surgical Pathologyon 019 Surgical Pathology [id number] [facility] PATHOLOGY AND LABORATORY MEDICINE [address] [place] [address] [id number] FINAL SURGICAL PATHOLOGY REPORT ___ NAME: JERALD YODER : 1960 59 Y M BILLING NO.: [id number] LOCATION: [address] [place] [address] PROCEDURE 10/06/2019 DATE: SURGEON: BECCA RAMIREZ MD [...] characteristics determined by the clinical laboratories of [facility]. They have not been cleared by [...] negativity on decalcified specimens. Professional Performing Location: [address] [place] [address]. DEPARTMENT OF PATHOLOGY AND LABORATORY MEDICINE [place], [place] [address] Normal [facility] Basic Metabolic Panelon 12-0 Anion gap [Moles/Vol] 9 Normal [facility] Comment on above: Performed By: #### B MP3, HEMDF #### [facility] [address] [place] [address] Calcium [Mass/Vol] 9.3 mg/dL Normal 8.4-10.4 [facility] Comment on above: Performed By: #### B MP3, HEMDF #### [address] [place] [address] [place] [address] CO2 [Moles/Vol] 24 mmol/L Normal 22-30 [facility] Comment on above: Performed By: #### B MP3, HEMDF #### [address] [address] [place] [address] Glucose [Mass/Vol] 317 mg/dL High 70-100 [facility] Comment on above: Performed By: #### B MP3, HEMDF #### [address] [address] [place] [address] Urea nitrogen [Mass/Vol] 11 mg/dL Normal 7-20 [facility] Comment on above: Performed By: #### B MP3, HEMDF #### [address] [address] [place] [address] Creatinine [Mass/Vol] 0.71 mg/dL Normal 0.52-1.25 [facility] Comment on above: Performed By: #### B MP3, HEMDF #### [facility] [address] [place] [address] GFR/1.73 sq M predicted among blacks MDRD (S/P/Bld) [Vol rate/Area] mL/min/{1.73_m2} Normal >60 [facility] Comment on above: Performed By: #### B MP3, HEMDF #### [facility] [address] [place] [address] GFR/1.73 sq M predicted among non-blacks MDRD (S/P/Bld) [Vol rate/Area] mL/min/{1.73_m2} Normal >60 [facility] Comment on above: Result Comment: Sour ce- MDRD equation with creatinine calibration to IDMS(NKDEP) eGFR not recommended for drug dose adjustment Performed By: #### B MP3, HEMDF #### [facility] [address] [place] [address] Chloride [Moles/Vol] 104 mmol/L Normal 98-107 [facility] Comment on above: Performed By: #### B MP3, HEMDF #### [facility] [address] [place] [address] Potassium [Moles/Vol] 4.1 mmol/L Normal 3.5-5.1 [facility] Comment on above: Performed By: #### B MP3, HEMDF #### [facility] [address] [place] [address] Sodium [Moles/Vol] 137 mmol/L Normal 135-145 [facility] Comment on above: Performed By: #### B MP3, HEMDF #### [facility] [address] [place] [address] Anion gap [Moles/Vol] 9 mmol/L [facility] [place] Calcium [Mass/Vol] 9.3 mg/dL 8.4 - 10. 4 mg/dL [facility], [place] Chloride [Moles/Vol] 104 mmol/L 98 - 10 7 mmol/L [facility], [place] CO2 [Moles/Vol] 24 mmol/L 22 - 30 mmol/L [facility], [place] Creatinine [Mass/Vol] 0.71 mg/dL 0.52 - 1.25 mg/dL [facility], [place] EGFR IF NonAfrican [place] >60.0 >60 mL/min [place], [place] Comment on above: Source- MDRD equatio n with creatinine calibration to IDMS(NKDEP) eGFR not recommended for drug dose adjustment GFR/1.73 sq M predicted among blacks MDRD (S/P/Bld) [Vol rate/Area] mL/min/{1.73_m2} >60 mL/min [facility] [place] Glucose [Mass/Vol] 317 mg/dL High 70 - 100 mg/dL [place], [place] Interpretation and review of laboratory results Abnormal [place] Potassium [Moles/Vol] 4.1 mmol/L 3.5 - 5.1 mmol/L [place] Sodium [Moles/Vol] 137 mmol/L 135 - 145 mmol/L [place] Urea nitrogen [Mass/Vol] 11 mg/dL 7 - 20 mg/dL [place] Test Performed by [facility], [address] [place] [address] [place], [place] CBC Auto Differentialon 12-0 Absolute Baso # 0.0 10*3/uL 0 - 0.2 10*3/uL [place] Absolute Neut # 3.9 10*3/uL 1.8 - 7 10*3/uL [place], [place] Basophils/100 WBC (Bld) 0.7 % 0 - 2 % [place], [place] Eosinophils (Bld) [#/Vol] 0.2 10*3/uL 0 - 0.5 10*3/uL [place] Eosinophils/100 WBC (Bld) 2.6 % 1 - 6 % [place] Erythrocyte distribution width (RBC) [Ratio] 13.5 % 11.5 - 14.5 % [place] Granulocytes/100 WBC (Bld) 62.2 % 40 - 80 % [place] Hematocrit (Bld) [Volume fraction] 42.8 % 40 - 52 % [place] Hemoglobin (Bld) [Mass/Vol] 15.0 g/dL 13 - 18 g/dL [place] Lymphocytes (Bld) [#/Vol] 1.7 10*3/uL 1 - 4.3 10*3/uL [place] Lymphocytes/100 WBC (Bld) 27.4 % 20 - 40 % [place] MCH (RBC) [Entitic mass] 28.8 pg 26 - 34 pg [place] MCHC (RBC) [Mass/Vol] 35.1 % 32 - 36 % [place], [place] MCV (RBC) [Entitic vol] 82.3 fL 80 - 98 fL [place], [place] Monocytes (Bld) [#/Vol] 0.4 10*3/uL 0 - 0.8 10*3/uL [place], [place] Monocytes/100 WBC (Bld) 7.1 % 2 - 10 % [place], [place] Platelet mean volume (Bld) [Entitic vol] 7.4 fL 7.4 - 10.4 fL [place], [place] Platelets (Bld) [#/Vol] 162 10*3/uL 140 - 440 10*3/uL [place] RBC (Bld) [#/Vol] 5.20 10*6/uL 4.4 - 5.9 10*6/uL [place] WBC (Bld) [#/Vol] 6.2 10*3/uL 3.6 - 10.7 10*3/uL [place] Test Performed by [facility], [address] [place] [id number] [place] [address] Glucose,Bedsideon 10-05-2019 Glucose [Mass/Vol] 214 mg/dL High 70-100 [facility] Comment on above: Result Comment: Test performed by glucose meter. Results may be 10%-15% lower than serum/plasma values. (CLIA ID [id number]) Performed By: #### B GLU #### [address] Hemogram w/ Autodiffon 10-05 Abs Baso Cnt 0.0 10*3/uL Normal 0.0-0.2 [facility] Comment on above: Performed By: #### B MP3, HEMDF #### [address] [address] [place] Abs Neutrophile Cnt 3.9 10*3/uL Normal 1.8-7.0 [facility] Comment on above: Performed By: #### B MP3, HEMDF #### [address] Basophils/100 WBC (Bld) 0.7 % Normal 0.0-2.0 [facility] Comment on above: Performed By: #### B MP3, HEMDF #### [address] [address] [address] [place] Eosinophils (Bld) [#/Vol] 0.2 10*3/uL Normal 0.0-0.5 [facility] Comment on above: Performed By: #### B MP3, HEMDF #### [address] [address] [address] [place] Eosinophils/100 WBC (Bld) 2.6 % Normal 1.0-6.0 [facility] Comment on above: Performed By: #### B MP3, HEMDF #### [address] [address] [place] Erythrocyte distribution width (RBC) [Ratio] 13.5 % Normal 11.5-14.5 [facility] Comment on above: Performed By: #### B MP3, HEMDF #### [address] [address] [place] Granulocytes/100 WBC (Bld) 62.2 % Normal 40.0-80.0 [facility] Comment on above: Performed By: #### B MP3, HEMDF #### [address] [address] [place] Hematocrit (Bld) [Volume fraction] 42.8 % Normal 40.0-52.0 [facility] Comment on above: Performed By: #### B MP3, HEMDF #### [address] [address] [address] [place] Hemoglobin (Bld) [Mass/Vol] 15.0 g/dL Normal 13.0-18.0 [facility] Comment on above: Performed By: #### B MP3, HEMDF #### [address] Lymphocytes (Bld) [#/Vol] 1.7 10*3/uL Normal 1.0-4.3 [facility] Comment on above: Performed By: #### B MP3, HEMDF #### [address] [address] [address] [place] Lymphocytes/100 WBC (Bld) 27.4 % Normal 20.0-40.0 [facility] Comment on above: Performed By: #### B MP3, HEMDF #### [address] [address] [address] [place] MCH (RBC) [Entitic mass] 28.8 pg Normal 26.0-34.0 [facility] Comment on above: Performed By: #### B MP3, HEMDF #### [address] [address] [address] [place] MCHC (RBC) [Mass/Vol] 35.1 % Normal 32.0-36.0 [facility] Comment on above: Performed By: #### B MP3, HEMDF #### [address] [address] [address] [place] MCV (RBC) [Entitic vol] 82.3 fL Normal 80.0-98.0 [facility] Comment on above: Performed By: #### B MP3, HEMDF #### [address] [address] [address] [place] Monocytes (Bld) [#/Vol] 0.4 10*3/uL Normal 0.0-0.8 [facility] Comment on above: Performed By: #### B MP3, HEMDF #### [address] [address] [address] [place], [place] Monocytes/100 WBC (Bld) 7.1 % Normal 2.0-10.0 [facility] Comment on above: Performed By: #### B MP3, HEMDF #### [address] [address] [address] [place] Platelet mean volume (Bld) [Entitic vol] 7.4 fL Normal 7.4-10.4 [facility] Comment on above: Performed By: #### B MP3, HEMDF #### [address] [address] [address] [place] Platelets (Bld) [#/Vol] 162 10*3/uL Normal 140-440 [facility] Comment on above: Performed By: #### B MP3, HEMDF #### [facility] [address] [place] [address] RBC (Bld) [#/Vol] 5.20 10*6/uL Normal 4.40-5.90 [facility] Comment on above: Performed By: #### B MP3, HEMDF #### [address] [address] [place] [address] WBC (Bld) [#/Vol] 6.2 10*3/uL Normal 3.6-10.7 [facility] Comment on above: Performed By: #### B MP3, HEMDF #### [address] [address] [place] [address] POCT Glucoseon 10-05-2019 Glucose [Mass/Vol] 214 mg/dL High 70 - 100 mg/dL [place], [place] Comment on above: Test performed by gl ucose meter. Results may be 10%-15% lower than serum/plasma values. (CLIA ID [id number]) Interpretation and review of laboratory results Abnormal [place] Test Performed by [facility], [address] [place] [address] [place], [place] Culture, urine Bacteria identified Cx Nom (U) Culture exhibits no growth. [facility] Work Phone: Laboratory - Microbiology an d Antimicrobial susceptibility Bacteria identified Cx Nom (Bld) No growth in 5 days. [facility] Work Phone: No Panel Information SARS-CoV-2 & FLU Antigen (Rapid) [facility] Work Phone: Vital Signs Date Time Vital Sign Value Performing Clinician Facility 06-03-2025 21:59-0400 Body height 195.58 cm No Primary Care Physician [facility] 06-03-2025 21:59-0400 Body mass index (BMI) [Ratio] 28.8 kg/m2 No Primary Care Physician [facility] 06-03-2025 21:59-0400 Body temperature 96.3 [degF] No Primary Care Physician [facility] 06-03-2025 21:59-0400 Body weight 110.22 kg No Primary Care Physician [facility] 06-03-2025 21:59-0400 Diastolic blood pressure 73 mm[Hg] No Primary Care Physician [facility] 06-03-2025 21:59-0400 Heart rate 80 /min No Primary Care Physician [facility] 06-03-2025 21:59-0400 Respiratory rate 18 /min No Primary Care Physician [facility] 06-03-2025 21:59-0400 SaO2% (BldA) [Mass fraction] 99 % No Primary Care Physician [facility] 06-03-2025 21:59-0400 Systolic blood pressure 102 mm[Hg] No Primary Care Physician [facility] 05-30-2025 00:22-0400 Body temperature 98 [degF] No Primary Care Physician [facility] 05-30-2025 00:22-0400 Diastolic blood pressure 87 mm[Hg] No Primary Care Physician [facility] 05-30-2025 00:22-0400 Heart rate 83 /min No Primary Care Physician [facility] 05-30-2025 00:22-0400 Respiratory rate 15 /min No Primary Care Physician [facility] 05-30-2025 00:22-0400 SaO2% (BldA) [Mass fraction] 97 % No Primary Care Physician [facility] 05-30-2025 00:22-0400 Systolic blood pressure 157 mm[Hg] No Primary Care Physician [facility] 05-29-2025 22:05-0400 Body height 195.58 cm No Primary Care Physician [facility] 05-29-2025 22:05-0400 Body mass index (BMI) [Ratio] 28.8 kg/m2 No Primary Care Physician [facility] 05-29-2025 22:05-0400 Body weight 110.22 kg No Primary Care Physician [facility] 05-22-2025 12:32-0400 Body temperature 97.8 [degF] No Primary Care Physician [facility] 05-22-2025 12:32-0400 Diastolic blood pressure 76 mm[Hg] No Primary Care Physician [facility] 05-22-2025 12:32-0400 Heart rate 66 /min No Primary Care Physician [facility] 05-22-2025 12:32-0400 Respiratory rate 18 /min No Primary Care Physician [facility] 05-22-2025 12:32-0400 SaO2% (BldA) [Mass fraction] 99 % No Primary Care Physician [facility] 05-22-2025 12:32-0400 Systolic blood pressure 129 mm[Hg] No Primary Care Physician [facility] 05-22-2025 07:03-0400 Body height 195.58 cm No Primary Care Physician [facility] 05-22-2025 07:03-0400 Body mass index (BMI) [Ratio] 26.6 kg/m2 No Primary Care Physician [facility] 05-22-2025 07:03-0400 Body weight 101.87 kg No Primary Care Physician [facility] 05-03-2025 14:16-0400 Body temperature 98 [degF] No Primary Care Physician [facility] 05-03-2025 14:16-0400 Diastolic blood pressure 77 mm[Hg] No Primary Care Physician [facility] 05-03-2025 14:16-0400 Heart rate 78 /min No Primary Care Physician [facility] 05-03-2025 14:16-0400 Respiratory rate 16 /min No Primary Care Physician [facility] 05-03-2025 14:16-0400 SaO2% (BldA) [Mass fraction] 97 % No Primary Care Physician [facility] 05-03-2025 14:16-0400 Systolic blood pressure 119 mm[Hg] No Primary Care Physician [facility] 05-03-2025 11:30-0400 Body mass index (BMI) [Ratio] 25.2 kg/m2 No Primary Care Physician [facility] 05-03-2025 11:30-0400 Body weight 96.4 kg No Primary Care Physician [facility] 05-03-2025 11:28-0400 Body height 195.58 cm No Primary Care Physician [facility] 04-21-2025 13:00-0400 Body temperature 97.1 [degF] No Primary Care Physician [facility] 04-21-2025 13:00-0400 Diastolic blood pressure 66 mm[Hg] No Primary Care Physician [facility] 04-21-2025 13:00-0400 Heart rate 64 /min No Primary Care Physician [facility] 04-21-2025 13:00-0400 Respiratory rate 14 /min No Primary Care Physician [facility] 04-21-2025 13:00-0400 SaO2% (BldA) [Mass fraction] 99 % No Primary Care Physician [facility] 04-21-2025 13:00-0400 Systolic blood pressure 141 mm[Hg] No Primary Care Physician [facility] 04-21-2025 10:51-0400 Body height 195.58 cm No Primary Care Physician [facility] 03-26-2025 21:56-0400 Body mass index (BMI) [Ratio] 25.2 kg/m2 Dr. Pedro Krishnan DO Work Phone: 0(084)666-897805 [place] [address] 03-26-2025 21:56-0400 Body weight 96.[address] Pedro Krishnan DO Work Phone: 2(150)473-721305 [place] [address] 03-26-2025 20:09-0400 Body height 195.[address] Pedro Krishnan DO Work Phone: 6(464)524-868205 [place] [address] 03-26-2025 20:09-0400 Body temperature 97.6 [degF] Dr. Pedro Krishnan DO Work Phone: 4(279)769-452805 [place] [address] 03-26-2025 20:09-0400 Diastolic blood pressure 76 mm[Hg] Dr. Pedro Krishnan DO Work Phone: [facility] 03-26-2025 20:09-0400 Heart rate 71 /min Dr. Pedro Krishnan DO Work Phone: [facility] 03-26-2025 20:09-0400 Respiratory rate 18 /min Dr. Pedro Krishnan DO Work Phone: [facility] 03-26-2025 20:09-0400 SaO2% (BldA) [Mass fraction] 99 % Dr. Pedro Krishnan DO Work Phone: [facility] 03-26-2025 20:09-0400 Systolic blood pressure 146 mm[Hg] Dr. Pedro Krishnan DO Work Phone: [facility] 02-16-2025 07:41-0400 Body temperature 98 [degF] Dr. Linden Chavez DO Work Phone: [facility] 02-16-2025 07:41-0400 Diastolic blood pressure 98 mm[Hg] Dr. Linden Chavez DO Work Phone: [facility] 02-16-2025 07:41-0400 Heart rate 77 /min Dr. Linden Chavez DO Work Phone: [facility] 02-16-2025 07:41-0400 Respiratory rate 19 /min Dr. Linden Chavez DO Work Phone: [facility] 02-16-2025 07:41-0400 SaO2% (BldA) [Mass fraction] 99 % Dr. Linden Chavez DO Work Phone: [facility] 02-16-2025 07:41-0400 Systolic blood pressure 107 mm[Hg] Dr. Linden Chavez DO Work Phone: [facility] 02-16-2025 04:01-0400 Body height 195.[address] Linden Chavez DO Work Phone: [facility] 02-16-2025 04:01-0400 Body mass index (BMI) [Ratio] 24.7 kg/m2 Dr. Linden Chavez DO Work Phone: [facility] 02-16-2025 04:01-0400 Body weight 94.[address] Linden Chavez DO Work Phone: [facility] 12-27-2024 01:46-0500 Body temperature 97.9 [degF] Dr. Linden Chavez DO Work Phone: [facility] 12-27-2024 01:46-0500 Diastolic blood pressure 80 mm[Hg] Dr. Linden Chavez DO Work Phone: [facility] 12-27-2024 01:46-0500 Heart rate 82 /min Dr. Linden Chavez DO Work Phone: [facility] 12-27-2024 01:46-0500 Respiratory rate 18 /min Dr. Linden Chavez DO Work Phone: [facility] 12-27-2024 01:46-0500 SaO2% (BldA) [Mass fraction] 95 % Dr. Linden Chavez DO Work Phone: [facility] 12-27-2024 01:46-0500 Systolic blood pressure 129 mm[Hg] Dr. Linden Chavez DO Work Phone: [facility] 12-26-2024 23:51-0500 Body mass index (BMI) [Ratio] 25.4 kg/m2 Dr. Linden Chavez DO Work Phone: [facility] 12-26-2024 23:51-0500 Body weight 97.[address] Linden Chavez DO Work Phone: [facility] 12-20-2024 20:13-0500 Body temperature 97.8 [degF] Dr. Linden Chavez DO Work Phone: [facility] 12-20-2024 20:13-0500 Diastolic blood pressure 98 mm[Hg] Dr. Linden Chavez DO Work Phone: [facility] 12-20-2024 20:13-0500 Heart rate 98 /min Dr. Lniden Chavez DO Work Phone: [facility] 12-20-2024 20:13-0500 Respiratory rate 18 /min Dr. Linden Chavez DO Work Phone: [facility] 12-20-2024 20:13-0500 SaO2% (BldA) [Mass fraction] 97 % Dr. Linden Chavez DO Work Phone: [facility] 12-20-2024 20:13-0500 Systolic blood pressure 130 mm[Hg] Dr. Linden Chavez DO Work Phone: [facility] 12-14-2024 09:29-0500 Body mass index (BMI) [Ratio] 27.02 kg/m2 Ion Alfaro APRN.CNP Work Phone: [facility] 12-14-2024 09:29-0500 Body temperature 97.11 [degF] Ion Moomaw FLOOR COVERING PRINTER.FRAME PULLEY MORTISING MACHINE OPERATOR Work Phone: [facility] 12-14-2024 09:29-0500 Body weight 98.7 kg Ion Moomaw FLOOR COVERING PRINTER.FRAME PULLEY MORTISING MACHINE OPERATOR Work Phone: [facility] 12-14-2024 09:29-0500 Diastolic blood pressure 70 mm[Hg] Ion Moomaw FLOOR COVERING PRINTER.FRAME PULLEY MORTISING MACHINE OPERATOR Work Phone: [facility] 12-14-2024 09:29-0500 Heart rate 77 /min Ion Moomaw FLOOR COVERING PRINTER.FRAME PULLEY MORTISING MACHINE OPERATOR Work Phone: [facility] 12-14-2024 09:29-0500 Respiratory rate 18 /min Ion Moomaw FLOOR COVERING PRINTER.FRAME PULLEY MORTISING MACHINE OPERATOR Work Phone: [facility] 12-14-2024 09:29-0500 SaO2% (BldA) [Mass fraction] 97 % Ion Moomaw FLOOR COVERING PRINTER.FRAME PULLEY MORTISING MACHINE OPERATOR Work Phone: [facility] 12-14-2024 09:29-0500 Systolic blood pressure 105 mm[Hg] Ion Moomaw FLOOR COVERING PRINTER.FRAME PULLEY MORTISING MACHINE OPERATOR Work Phone: [facility] 12-08-2024 14:52-0500 Body temperature 97.4 [degF] Dr. Linden Chavez DO Work Phone: [facility] 12-08-2024 14:52-0500 Diastolic blood pressure 102 mm[Hg] Dr. Linden Chavez DO Work Phone: [facility] 12-08-2024 14:52-0500 Heart rate 86 /min Dr. Linden Chavez DO Work Phone: [facility] 12-08-2024 14:52-0500 Respiratory rate 18 /min Dr. Linden Chavez DO Work Phone: [facility] 12-08-2024 14:52-0500 SaO2% (BldA) [Mass fraction] 95 % Dr. Linden Chavez DO Work Phone: [facility] 12-08-2024 14:52-0500 Systolic blood pressure 160 mm[Hg] Dr. Linden Chavez DO Work Phone: [facility] 12-08-2024 12:21-0500 Body mass index (BMI) [Ratio] 26.4 kg/m2 Dr. Linden Chavez DO Work Phone: [facility] 12-08-2024 12:21-0500 Body weight 101.[address] Linden Chavez DO Work Phone: [facility] 11-27-2024 16:07-0500 Body temperature 97.9 [degF] Dr. Linden Chavez DO Work Phone: [facility] 11-27-2024 16:07-0500 Diastolic blood pressure 69 mm[Hg] Dr. Linden Chavez DO Work Phone: [facility] 11-27-2024 16:07-0500 Heart rate 88 /min Dr. Linden Chavez DO Work Phone: [facility] 11-27-2024 16:07-0500 Respiratory rate 18 /min Dr. Linden Chavez DO Work Phone: [facility] 11-27-2024 16:07-0500 SaO2% (BldA) [Mass fraction] 96 % Dr. Linden Chavez DO Work Phone: [facility] 11-27-2024 16:07-0500 Systolic blood pressure 138 mm[Hg] Dr. Linden Chavez DO Work Phone: [facility] 10-30-2024 03:11-0500 Body temperature 97.4 [degF] Dr. Linden Chavez DO Work Phone: [facility] 10-30-2024 03:11-0500 Diastolic blood pressure 89 mm[Hg] Dr. Linden Chavez DO Work Phone: [facility] 10-30-2024 03:11-0500 Heart rate 77 /min Dr. Linden Chavez DO Work Phone: [facility] [facility] 10[facility]24 03:11-0500 Respiratory rate 18 /min Dr. Linden Chavez DO Work Phone: [facility] 10-30-2024 03:11-0500 SaO2% (BldA) [Mass fraction] 95 % Dr. Linden Chavez DO Work Phone: [facility] 10-30-2024 03:11-0500 Systolic blood pressure 103 mm[Hg] Dr. Linden Chavez DO Work Phone: [facility] 10-19-2024 06:50-0500 Body temperature 98.3 [degF] Dr. Linden Chavez DO Work Phone: [facility] 10-19-2024 06:50-0500 Diastolic blood pressure 75 mm[Hg] Dr. Linden Chavez DO Work Phone: [facility] 10-19-2024 06:50-0500 Heart rate 75 /min Dr. Linden Chavez DO Work Phone: [facility] 10-19-2024 06:50-0500 Respiratory rate 18 /min Dr. Linden Chavez DO Work Phone: [facility] 10-19-2024 06:50-0500 SaO2% (BldA) [Mass fraction] 96 % Dr. Linden Chavez DO Work Phone: [facility] 10-19-2024 06:50-0500 Systolic blood pressure 107 mm[Hg] Dr. Linden Chavez DO Work Phone: [facility] 10-19-2024 03:58-0500 Body mass index (BMI) [Ratio] 25.9 kg/m2 Dr. Linden Chavez DO Work Phone: [facility] 10-19-2024 03:58-0500 Body weight 99.[address] Linden Chavez DO Work Phone: [facility] 05-10-2024 19:42-0400 Body mass index (BMI) [Ratio] 27.65 kg/m2 Rosa Quinones FLOOR COVERING PRINTER.FRAME PULLEY MORTISING MACHINE OPERATOR Work Phone: [facility] 05-10-2024 19:42-0400 Body temperature 97.5 [degF] Rosa Quinones FLOOR COVERING PRINTER.FRAME PULLEY MORTISING MACHINE OPERATOR Work Phone: [facility] 05-10-2024 19:42-0400 Body weight 101 kg Rosa Quinones FLOOR COVERING PRINTER.FRAME PULLEY MORTISING MACHINE OPERATOR Work Phone: [facility] 05-10-2024 19:42-0400 Diastolic blood pressure 81 mm[Hg] Rosa Quinones FLOOR COVERING PRINTER.FRAME PULLEY MORTISING MACHINE OPERATOR Work Phone: [facility] 05-10-2024 19:42-0400 Heart rate 72 /min Rosa Quinones FLOOR COVERING PRINTER.FRAME PULLEY MORTISING MACHINE OPERATOR Work Phone: [facility] 05-10-2024 19:42-0400 Respiratory rate 20 /min Rosa Quinones FLOOR COVERING PRINTER.FRAME PULLEY MORTISING MACHINE OPERATOR Work Phone: [facility] 05-10-2024 19:42-0400 SaO2% (BldA) [Mass fraction] 96 % Rosa Quinones FLOOR COVERING PRINTER.FRAME PULLEY MORTISING MACHINE OPERATOR Work Phone: [facility] 05-10-2024 19:42-0400 Systolic blood pressure 135 mm[Hg] Rosa Quinones FLOOR COVERING PRINTER.FRAME PULLEY MORTISING MACHINE OPERATOR Work Phone: [facility] 03-09-2024 02:47-0400 Body temperature 98.7 [degF] [facility] 03-09-2024 02:47-0400 Diastolic blood pressure 71 mm[Hg] [facility] 03-09-2024 02:47-0400 Heart rate 79 /min [facility] 03-09-2024 02:47-0400 Respiratory rate 16 /min [facility] 03-09-2024 02:47-0400 SaO2% (BldA) [Mass fraction] 99 % [facility] 03-09-2024 02:47-0400 Systolic blood pressure 136 mm[Hg] [facility] 03-09-2024 01:35-0400 Body height 195.58 cm [facility] 03-09-2024 01:35-0400 Body mass index (BMI) [Ratio] 26.1 kg/m2 [facility] 03-09-2024 01:35-0400 Body weight 100 kg [facility] 03-08-2024 10:04-0400 Body temperature 98.4 [degF] [facility] 03-08-2024 10:04-0400 Diastolic blood pressure 87 mm[Hg] [facility] 03-08-2024 10:04-0400 Heart rate 79 /min [facility] 03-08-2024 10:04-0400 Respiratory rate 17 /min [facility] 03-08-2024 10:04-0400 SaO2% (BldA) [Mass fraction] 96 % [facility] 03-08-2024 10:04-0400 Systolic blood pressure 142 mm[Hg] [facility] 03-08-2024 06:24-0400 Body height 195.58 cm [facility] 03-08-2024 06:24-0400 Body mass index (BMI) [Ratio] 27.3 kg/m2 [facility] 03-08-2024 06:24-0400 Body weight 104.7 kg [facility] 02-08-2024 00:47-0400 Body temperature 98.4 [degF] [facility] 02-08-2024 00:47-0400 Diastolic blood pressure 67 mm[Hg] [facility] 02-08-2024 00:47-0400 Heart rate 92 /min [facility] 02-08-2024 00:47-0400 Respiratory rate 16 /min [facility] 02-08-2024 00:47-0400 SaO2% (BldA) [Mass fraction] 95 % [facility] 02-08-2024 00:47-0400 Systolic blood pressure 114 mm[Hg] [facility] 02-07-2024 19:16-0400 Body height 195.58 cm [facility] 02-07-2024 19:16-0400 Body mass index (BMI) [Ratio] 26.7 kg/m2 [facility] 02-07-2024 19:16-0400 Body weight 102.42 kg [facility] 01-27-2024 06:12-0400 Body temperature 97.8 [degF] [facility] 01-27-2024 06:12-0400 Diastolic blood pressure 60 mm[Hg] [facility] 01-27-2024 06:12-0400 Heart rate 66 /min [facility] 01-27-2024 06:12-0400 Respiratory rate 18 /min [facility] 01-27-2024 06:12-0400 SaO2% (BldA) [Mass fraction] 98 % [facility] 01-27-2024 06:12-0400 Systolic blood pressure 100 mm[Hg] [facility] 01-26-2024 23:30-0400 Body height 195.58 cm [facility] 01-26-2024 23:30-0400 Body mass index (BMI) [Ratio] 27.5 kg/m2 [facility] 01-26-2024 23:30-0400 Body weight 105.2 kg [facility] 12-25-2023 11:45-0500 Body temperature 97.4 [degF] [facility] 12-25-2023 11:45-0500 Diastolic blood pressure 81 mm[Hg] [facility] 12-25-2023 11:45-0500 Heart rate 74 /min [facility] 12-25-2023 11:45-0500 Respiratory rate 16 /min [facility] 12-25-2023 11:45-0500 SaO2% (BldA) [Mass fraction] 97 % [facility] 12-25-2023 11:45-0500 Systolic blood pressure 147 mm[Hg] [facility] 12-25-2023 08:45-0500 Body height 195.58 cm [facility] 12-25-2023 08:45-0500 Body mass index (BMI) [Ratio] 26.7 kg/m2 [facility] 12-25-2023 08:45-0500 Body weight 102.3 kg [facility] 12-18-2023 17:53-0500 Body temperature 98.2 [degF] [facility] 12-18-2023 17:53-0500 Diastolic blood pressure 61 mm[Hg] [facility] 12-18-2023 17:53-0500 Heart rate 77 /min [facility] 12-18-2023 17:53-0500 Respiratory rate 18 /min [facility] 12-18-2023 17:53-0500 SaO2% (BldA) [Mass fraction] 97 % [facility] 12-18-2023 17:53-0500 Systolic blood pressure 109 mm[Hg] [facility] 12-18-2023 16:22-0500 Body mass index (BMI) [Ratio] 26.7 kg/m2 [facility] 12-18-2023 16:22-0500 Body weight 102.2 kg [facility] 12-18-2023 15:34-0500 Body height 195.58 cm [facility] 12-08-2023 14:42-0500 Respiratory rate 18 /min [facility] 12-08-2023 12:40-0500 Body height 195.58 cm [facility] 12-08-2023 12:40-0500 Body temperature 99.7 [degF] [facility] 12-08-2023 12:40-0500 Diastolic blood pressure 82 mm[Hg] [facility] 12-08-2023 12:40-0500 Heart rate 75 /min [facility] 12-08-2023 12:40-0500 SaO2% (BldA) [Mass fraction] 95 % [facility] 12-08-2023 12:40-0500 Systolic blood pressure 115 mm[Hg] [facility] 11-22-2023 17:37-0500 Diastolic blood pressure 74 mm[Hg] [facility] 11-22-2023 17:37-0500 Heart rate 71 /min [facility] 11-22-2023 17:37-0500 Respiratory rate 16 /min [facility] 11-22-2023 17:37-0500 SaO2% (BldA) [Mass fraction] 98 % [facility] 11-22-2023 17:37-0500 Systolic blood pressure 118 mm[Hg] [facility] 11-22-2023 14:21-0500 Body height 195.58 cm [facility] 11-22-2023 14:21-0500 Body mass index (BMI) [Ratio] 26.2 kg/m2 [facility] 11-22-2023 14:21-0500 Body temperature 97.6 [degF] [facility] 11-22-2023 14:21-0500 Body weight 100.4 kg [facility] 09-30-2023 23:40-0500 Body height 196.01 cm [facility] 09-30-2023 23:40-0500 Body mass index (BMI) [Ratio] 28.3 kg/m2 [facility] 09-30-2023 23:40-0500 Body temperature 97.7 [degF] [facility] 09-30-2023 23:40-0500 Body weight 108.86 kg [facility] 09-30-2023 23:40-0500 Diastolic blood pressure 77 mm[Hg] [facility] 09-30-2023 23:40-0500 Heart rate 77 /min [facility] 09-30-2023 23:40-0500 Respiratory rate 18 /min [facility] 09-30-2023 23:40-0500 SaO2% (BldA) [Mass fraction] 95 % [facility] 09-30-2023 23:40-0500 Systolic blood pressure 127 mm[Hg] [facility] 09-29-2023 23:39-0500 Diastolic blood pressure 83 mm[Hg] [facility] 09-29-2023 23:39-0500 Systolic blood pressure 132 mm[Hg] [facility] 09-29-2023 19:23-0500 Body height 195.58 cm [facility] 09-29-2023 19:23-0500 Body mass index (BMI) [Ratio] 28.4 kg/m2 [facility] 09-29-2023 19:23-0500 Body temperature 97.6 [degF] [facility] 09-29-2023 19:23-0500 Body weight 108.86 kg [facility] 09-29-2023 19:23-0500 Heart rate 82 /min [facility] 09-29-2023 19:23-0500 Respiratory rate 18 /min [facility] 09-29-2023 19:23-0500 SaO2% (BldA) [Mass fraction] 96 % [facility] 08-26-2023 05:07-0400 Body height 195.58 cm [facility] 08-26-2023 05:07-0400 Body mass index (BMI) [Ratio] 27.2 kg/m2 [facility] 08-26-2023 05:07-0400 Body temperature 97.3 [degF] [facility] 08-26-2023 05:07-0400 Body weight 104.3 kg [facility] 08-26-2023 05:07-0400 Diastolic blood pressure 80 mm[Hg] [facility] 08-26-2023 05:07-0400 Heart rate 78 /min [facility] 08-26-2023 05:07-0400 Respiratory rate 18 /min [facility] 08-26-2023 05:07-0400 SaO2% (BldA) [Mass fraction] 98 % [facility] 08-26-2023 05:07-0400 Systolic blood pressure 144 mm[Hg] [facility] 08-18-2023 15:51-0400 Body temperature 97.59 [degF] Jimmy Ramos 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 Work Phone: [facility] 08-18-2023 15:51-0400 Body weight 102.97 kg Jimmy Ramos FLOOR COVERING PRINTER.FRAME PULLEY MORTISING MACHINE OPERATOR Work Phone: [facility] 08-18-2023 15:51-0400 Diastolic blood pressure 80 mm[Hg] Jimmy Ramos FLOOR COVERING PRINTER.FRAME PULLEY MORTISING MACHINE OPERATOR Work Phone: [facility] 08-18-2023 15:51-0400 Heart rate 74 /min Jimmy Ramos FLOOR COVERING PRINTER.FRAME PULLEY MORTISING MACHINE OPERATOR Work Phone: [facility] 08-18-2023 15:51-0400 Respiratory rate 20 /min [facility] F[facility] COVERING PRINTER.FRAME PULLEY MORTISING MACHINE OPERATOR Work Phone: [facility] 08-18-2023 15:51-0400 SaO2% (BldA) [Mass fraction] 98 % [facility] FLOOR COVERING PRINTER.FRAME PULLEY MORTISING MACHINE OPERATOR Work Phone: [facility] 08-18-2023 15:51-0400 Systolic blood pressure 127 mm[Hg] [facility] F[facility]OR COVERING PRINTER.FRAME PULLEY MORTISING MACHINE OPERATOR Work Phone: [facility] 07-29-2023 13:51-0400 Diastolic blood pressure 101 mm[Hg] [facility] 07-29-2023 13:51-0400 Heart rate 86 /min [facility] 07-29-2023 13:51-0400 Respiratory rate 16 /min [facility] 07-29-2023 13:51-0400 SaO2% (BldA) [Mass fraction] 88 % [facility] 07-29-2023 13:51-0400 Systolic blood pressure 135 mm[Hg] [facility] 07-29-2023 09:08-0400 Body mass index (BMI) [Ratio] 28.2 kg/m2 [facility] 07-29-2023 09:08-0400 Body temperature 97.5 [degF] [facility] 07-29-2023 09:08-0400 Body weight 107.95 kg [facility] 05-12-2023 15:52-0400 Body height 195.58 cm [facility] 05-12-2023 15:52-0400 Body mass index (BMI) [Ratio] 28.4 kg/m2 [facility] 05-12-2023 15:52-0400 Body temperature 97.1 [degF] [facility] 05-12-2023 15:52-0400 Body weight 108.86 kg [facility] 05-12-2023 15:52-0400 Diastolic blood pressure 76 mm[Hg] [facility] 05-12-2023 15:52-0400 Heart rate 72 /min [facility] 05-12-2023 15:52-0400 Respiratory rate 14 /min [facility] 05-12-2023 15:52-0400 SaO2% (BldA) [Mass fraction] 94 % [facility] 05-12-2023 15:52-0400 Systolic blood pressure 125 mm[Hg] [facility] 03-07-2023 05:36-0400 Diastolic blood pressure 88 mm[Hg] [facility] 03-07-2023 05:36-0400 Heart rate 81 /min [facility] 03-07-2023 05:36-0400 Respiratory rate 18 /min [facility] 03-07-2023 05:36-0400 SaO2% (BldA) [Mass fraction] 96 % [facility] 03-07-2023 05:36-0400 Systolic blood pressure 141 mm[Hg] [facility] 03-07-2023 01:11-0400 Body height 187.96 cm [facility] 03-07-2023 01:11-0400 Body mass index (BMI) [Ratio] 30.2 kg/m2 [facility] 03-07-2023 01:11-0400 Body temperature 97.9 [degF] [facility] 03-07-2023 01:11-0400 Body weight 106.9 kg [facility] 01-18-2023 09:50-0400 Diastolic blood pressure 66 mm[Hg] [facility] 01-18-2023 09:50-0400 Heart rate 72 /min [facility] 01-18-2023 09:50-0400 Respiratory rate 15 /min [facility] 01-18-2023 09:50-0400 SaO2% (BldA) [Mass fraction] 98 % [facility] 01-18-2023 09:50-0400 Systolic blood pressure 143 mm[Hg] [facility] 01-18-2023 07:58-0400 Body height 195.58 cm [facility] 01-18-2023 07:58-0400 Body mass index (BMI) [Ratio] 27.2 kg/m2 [facility] 01-18-2023 07:58-0400 Body temperature 97.9 [degF] [facility] 01-18-2023 07:58-0400 Body weight 104.2 kg [facility] 12-11-2022 19:20-0500 Diastolic blood pressure 93 mm[Hg] [facility] 12-11-2022 19:20-0500 Heart rate 77 /min [facility] 12-11-2022 19:20-0500 Respiratory rate 16 /min [facility] 12-11-2022 19:20-0500 SaO2% (BldA) [Mass fraction] 96 % [facility] 12-11-2022 19:20-0500 Systolic blood pressure 154 mm[Hg] [facility] 12-11-2022 16:13-0500 Body height 195.58 cm [facility] 12-11-2022 16:13-0500 Body mass index (BMI) [Ratio] 27.7 kg/m2 [facility] 12-11-2022 16:13-0500 Body temperature 96.5 [degF] [facility] 12-11-2022 16:13-0500 Body weight 106.14 kg [facility] 12-10-2022 12:37-0500 Heart rate 78 /min [facility] 12-10-2022 12:37-0500 Respiratory rate 18 /min [facility] 12-10-2022 09:48-0500 Body height 195.58 cm [facility] 12-10-2022 09:48-0500 Body mass index (BMI) [Ratio] 27.8 kg/m2 [facility] 12-10-2022 09:48-0500 Body temperature 97.9 [degF] [facility] 12-10-2022 09:48-0500 Body weight 106.59 kg [facility] 12-10-2022 09:48-0500 Diastolic blood pressure 73 mm[Hg] [facility] 12-10-2022 09:48-0500 SaO2% (BldA) [Mass fraction] 99 % [facility] 12-10-2022 09:48-0500 Systolic blood pressure 109 mm[Hg] [facility] 11-25-2022 15:13-0500 Diastolic blood pressure 69 mm[Hg] [facility] 11-25-2022 15:13-0500 Heart rate 81 /min [facility] 11-25-2022 15:13-0500 Respiratory rate 16 /min [facility] 11-25-2022 15:13-0500 SaO2% (BldA) [Mass fraction] 97 % [facility] 11-25-2022 15:13-0500 Systolic blood pressure 137 mm[Hg] [facility] 11-25-2022 13:07-0500 Body height 195.58 cm [facility] 11-25-2022 13:07-0500 Body mass index (BMI) [Ratio] 27.7 kg/m2 [facility] 11-25-2022 13:07-0500 Body temperature 97.6 [degF] [facility] 11-25-2022 13:07-0500 Body weight 106.14 kg [facility] 10-30-2022 04:24-0500 Diastolic blood pressure 71 mm[Hg] [facility] 10-30-2022 04:24-0500 Heart rate 79 /min [facility] 10-30-2022 04:24-0500 Respiratory rate 16 /min [facility] 10-30-2022 04:24-0500 SaO2% (BldA) [Mass fraction] 95 % [facility] 10-30-2022 04:24-0500 Systolic blood pressure 115 mm[Hg] [facility] 10-29-2022 21:00-0500 Body mass index (BMI) [Ratio] 27.8 kg/m2 [facility] 10-29-2022 21:00-0500 Body temperature 97.3 [degF] [facility] 10-29-2022 21:00-0500 Body weight 106.59 kg [facility] 09-18-2022 10:21-0500 Body height 195.58 cm [facility] Work Phone: 09-18-2022 10:21-0500 Body mass index (BMI) [Ratio] 27.7 kg/m2 [facility] 09-18-2022 10:21-0500 Body temperature 97.4 [degF] [facility] 09-18-2022 10:21-0500 Body weight 106.14 kg [facility] 09-18-2022 10:21-0500 Diastolic blood pressure 94 mm[Hg] [facility] 09-18-2022 10:21-0500 Heart rate 77 /min [facility] 09-18-2022 10:21-0500 Respiratory rate 16 /min [facility] 09-18-2022 10:21-0500 SaO2% (BldA) [Mass fraction] 99 % [facility] 09-18-2022 10:21-0500 Systolic blood pressure 106 mm[Hg] [facility] 08-07-2022 22:15-0400 Diastolic blood pressure 70 mm[Hg] [facility] 08-07-2022 22:15-0400 Heart rate 83 /min [facility] 08-07-2022 22:15-0400 Respiratory rate 16 /min [facility] 08-07-2022 22:15-0400 SaO2% (BldA) [Mass fraction] 98 % [facility] 08-07-2022 22:15-0400 Systolic blood pressure 120 mm[Hg] [facility] 08-07-2022 18:39-0400 Body height 195.58 cm [facility] Work Phone: 08-07-2022 18:39-0400 Body mass index (BMI) [Ratio] 28.4 kg/m2 [facility] 08-07-2022 18:39-0400 Body temperature 97.8 [degF] [facility] 08-07-2022 18:39-0400 Body weight 108.86 kg [facility] 07-03-2022 00:40-0400 Heart rate 77 /min No Primary Care Physician [facility] Work Phone: 07-03-2022 00:40-0400 Respiratory rate 18 /min No Primary Care Physician [facility] Work Phone: 07-02-2022 20:57-0400 Body height 195.58 cm No Primary Care Physician [facility] Work Phone: 07-02-2022 20:57-0400 Body mass index (BMI) [Ratio] 27.8 kg/m2 No Primary Care Physician [facility] Work Phone: 07-02-2022 20:57-0400 Body temperature 97.8 [degF] No Primary Care Physician [facility] Work Phone: 07-02-2022 20:57-0400 Body weight 106.59 kg No Primary Care Physician [facility] Work Phone: 07-02-2022 20:57-0400 Diastolic blood pressure 97 mm[Hg] No Primary Care Physician [facility] Work Phone: 07-02-2022 20:57-0400 SaO2% (BldA) [Mass fraction] 99 % No Primary Care Physician [facility] Work Phone: 07-02-2022 20:57-0400 Systolic blood pressure 140 mm[Hg] No Primary Care Physician [facility] Work Phone: 05-26-2022 01:37-0400 Body height 195.58 cm No Primary Care Physician [facility] Work Phone: 05-26-2022 01:37-0400 Body mass index (BMI) [Ratio] 27.7 kg/m2 No Primary Care Physician [facility] Work Phone: 05-26-2022 01:37-0400 Body temperature 97.1 [degF] No Primary Care Physician [facility] Work Phone: 05-26-2022 01:37-0400 Body weight 106.14 kg No Primary Care Physician [facility] Work Phone: 05-26-2022 01:37-0400 Diastolic blood pressure 82 mm[Hg] No Primary Care Physician [facility] Work Phone: 05-26-2022 01:37-0400 Heart rate 79 /min No Primary Care Physician [facility] Work Phone: 05-26-2022 01:37-0400 Respiratory rate 16 /min No Primary Care Physician [facility] Work Phone: 05-26-2022 01:37-0400 SaO2% (BldA) [Mass fraction] 98 % No Primary Care Physician [facility] Work Phone: 05-26-2022 01:37-0400 Systolic blood pressure 137 mm[Hg] No Primary Care Physician [facility] Work Phone: 04-26-2022 18:38-0400 Heart rate 76 /min No Primary Care Physician [facility] Work Phone: 04-26-2022 18:38-0400 Respiratory rate 17 /min No Primary Care Physician [facility] Work Phone: 04-26-2022 18:38-0400 SaO2% (BldA) [Mass fraction] 97 % No Primary Care Physician [facility] Work Phone: 04-26-2022 14:33-0400 Body temperature 98 [degF] No Primary Care Physician [facility] Work Phone: 04-26-2022 14:33-0400 Diastolic blood pressure 74 mm[Hg] No Primary Care Physician [facility] Work Phone: 04-26-2022 14:33-0400 Heart rate 71 /min No Primary Care Physician [facility] Work Phone: 04-26-2022 14:33-0400 Respiratory rate 18 /min No Primary Care Physician [facility] Work Phone: 04-26-2022 14:33-0400 SaO2% (BldA) [Mass fraction] 99 % No Primary Care Physician [facility] Work Phone: 04-26-2022 14:33-0400 Systolic blood pressure 117 mm[Hg] No Primary Care Physician [facility] Work Phone: 04-26-2022 14:06-0400 Body height 195.58 cm No Primary Care Physician [facility] Work Phone: 04-26-2022 14:06-0400 Body mass index (BMI) [Ratio] 28.9 kg/m2 No Primary Care Physician [facility] Work Phone: 04-26-2022 14:06-0400 Body weight 110.67 kg No Primary Care Physician [facility] Work Phone: 03-20-2022 14:23-0400 Body temperature 99 [degF] No Primary Care Physician [facility] Work Phone: 03-20-2022 14:19-0400 Diastolic blood pressure 97 mm[Hg] No Primary Care Physician [facility] Work Phone: 03-20-2022 14:19-0400 Heart rate 70 /min No Primary Care Physician [facility] Work Phone: 03-20-2022 14:19-0400 Respiratory rate 16 /min No Primary Care Physician [facility] Work Phone: 03-20-2022 14:19-0400 SaO2% (BldA) [Mass fraction] 97 % No Primary Care Physician [facility] Work Phone: 03-20-2022 14:19-0400 Systolic blood pressure 156 mm[Hg] No Primary Care Physician [facility] Work Phone: 03-20-2022 12:29-0400 Body height 195.58 cm No Primary Care Physician [facility] Work Phone: 03-20-2022 12:29-0400 Body weight 98.6 kg No Primary Care Physician [facility] Work Phone: 03-19-2022 23:34-0400 Body mass index (BMI) [Ratio] 25.7 kg/m2 No Primary Care Physician [facility] Work Phone: 03-19-2022 23:08-0400 Body temperature 98.1 [degF] No Primary Care Physician [facility] Work Phone: 03-19-2022 23:08-0400 Diastolic blood pressure 89 mm[Hg] No Primary Care Physician [facility] Work Phone: 03-19-2022 23:08-0400 Heart rate 98 /min No Primary Care Physician [facility] Work Phone: 03-19-2022 23:08-0400 Respiratory rate 14 /min No Primary Care Physician [facility] Work Phone: 03-19-2022 23:08-0400 SaO2% (BldA) [Mass fraction] 97 % No Primary Care Physician [facility] Work Phone: 03-19-2022 23:08-0400 Systolic blood pressure 126 mm[Hg] No Primary Care Physician [facility] Work Phone: 03-19-2022 17:31-0400 Body height 195.58 cm No Primary Care Physician [facility] Work Phone: 03-19-2022 17:31-0400 Body mass index (BMI) [Ratio] 27.7 kg/m2 No Primary Care Physician [facility] Work Phone: 03-19-2022 17:31-0400 Body weight 106.14 kg No Primary Care Physician [facility] Work Phone: 03-02-2022 18:53-0400 Body height 195.58 cm No Primary Care Physician [facility] Work Phone: 03-02-2022 18:53-0400 Body mass index (BMI) [Ratio] 27.7 kg/m2 No Primary Care Physician [facility] Work Phone: 03-02-2022 18:53-0400 Body temperature 97.2 [degF] No Primary Care Physician [facility] Work Phone: 03-02-2022 18:53-0400 Body weight 106.14 kg No Primary Care Physician [facility] Work Phone: 03-02-2022 18:53-0400 Diastolic blood pressure 96 mm[Hg] No Primary Care Physician [facility] Work Phone: 03-02-2022 18:53-0400 Heart rate 82 /min No Primary Care Physician [facility] Work Phone: 03-02-2022 18:53-0400 Respiratory rate 15 /min No Primary Care Physician [facility] Work Phone: 03-02-2022 18:53-0400 SaO2% (BldA) [Mass fraction] 98 % No Primary Care Physician [facility] Work Phone: 03-02-2022 18:53-0400 Systolic blood pressure 145 mm[Hg] No Primary Care Physician [facility] Work Phone: 01-31-2022 09:08-0400 Diastolic blood pressure 77 mm[Hg] No Primary Care Physician [facility] Work Phone: 01-31-2022 09:08-0400 Heart rate 62 /min No Primary Care Physician [facility] Work Phone: 01-31-2022 09:08-0400 Respiratory rate 15 /min No Primary Care Physician [facility] Work Phone: 01-31-2022 09:08-0400 SaO2% (BldA) [Mass fraction] 98 % No Primary Care Physician [facility] Work Phone: 01-31-2022 09:08-0400 Systolic blood pressure 124 mm[Hg] No Primary Care Physician [facility] Work Phone: 01-31-2022 08:10-0400 Body mass index (BMI) [Ratio] 28.9 kg/m2 No Primary Care Physician [facility] Work Phone: 01-31-2022 08:10-0400 Body temperature 97.8 [degF] No Primary Care Physician [facility] Work Phone: 01-31-2022 08:10-0400 Body weight 110.67 kg No Primary Care Physician [facility] Work Phone: 01-08-2022 11:14-0500 Diastolic blood pressure 91 mm[Hg] No Primary Care Physician [facility] Work Phone: 01-08-2022 11:14-0500 Heart rate 78 /min No Primary Care Physician [facility] Work Phone: 01-08-2022 11:14-0500 Respiratory rate 16 /min No Primary Care Physician [facility] Work Phone: 01-08-2022 11:14-0500 Systolic blood pressure 136 mm[Hg] No Primary Care Physician [facility] Work Phone: 01-08-2022 10:14-0500 Diastolic blood pressure 91 mm[Hg] No Primary Care Physician [facility] Work Phone: 01-08-2022 10:14-0500 Heart rate 78 /min No Primary Care Physician [facility] Work Phone: 01-08-2022 10:14-0500 Respiratory rate 16 /min No Primary Care Physician [facility] Work Phone: 01-08-2022 10:14-0500 Systolic blood pressure 136 mm[Hg] No Primary Care Physician [facility] Work Phone: 01-08-2022 07:05-0500 Body mass index (BMI) [Ratio] 25.9 kg/m2 No Primary Care Physician [facility] Work Phone: 01-08-2022 07:05-0500 Body temperature 98.6 [degF] No Primary Care Physician [facility] Work Phone: 01-08-2022 07:05-0500 Body weight 99.4 kg No Primary Care Physician [facility] Work Phone: 01-08-2022 07:05-0500 SaO2% (BldA) [Mass fraction] 97 % No Primary Care Physician [facility] Work Phone: 01-08-2022 06:05-0500 Body mass index (BMI) [Ratio] 25.9 kg/m2 No Primary Care Physician [facility] Work Phone: 01-08-2022 06:05-0500 Body temperature 98.6 [degF] No Primary Care Physician [facility] Work Phone: 01-08-2022 06:05-0500 Body weight 99.4 kg No Primary Care Physician [facility] Work Phone: 01-08-2022 06:05-0500 SaO2% (BldA) [Mass fraction] 97 % No Primary Care Physician [facility] Work Phone: 01-07-2022 08:31-0500 Body temperature 98 [degF] No Primary Care Physician [facility] Work Phone: 01-07-2022 08:31-0500 Diastolic blood pressure 82 mm[Hg] No Primary Care Physician [facility] Work Phone: 01-07-2022 08:31-0500 Heart rate 70 /min No Primary Care Physician [facility] Work Phone: 01-07-2022 08:31-0500 Respiratory rate 16 /min No Primary Care Physician [facility] Work Phone: 01-07-2022 08:31-0500 SaO2% (BldA) [Mass fraction] 95 % No Primary Care Physician [facility] Work Phone: 01-07-2022 08:31-0500 Systolic blood pressure 138 mm[Hg] No Primary Care Physician [facility] Work Phone: 01-07-2022 07:31-0500 Body temperature 98 [degF] No Primary Care Physician [facility] Work Phone: 01-07-2022 07:31-0500 Diastolic blood pressure 82 mm[Hg] No Primary Care Physician [facility] Work Phone: 01-07-2022 07:31-0500 Heart rate 70 /min No Primary Care Physician [facility] Work Phone: 01-07-2022 07:31-0500 Respiratory rate 16 /min No Primary Care Physician [facility] Work Phone: 01-07-2022 07:31-0500 SaO2% (BldA) [Mass fraction] 95 % No Primary Care Physician [facility] Work Phone: 01-07-2022 07:31-0500 Systolic blood pressure 138 mm[Hg] No Primary Care Physician [facility] Work Phone: 01-05-2022 10:48-0500 Body weight 97.25 kg No Primary Care Physician [facility] Work Phone: 01-05-2022 09:55-0500 Body mass index (BMI) [Ratio] 25.4 kg/m2 No Primary Care Physician [facility] Work Phone: 01-05-2022 09:48-0500 Body weight 97.25 kg No Primary Care Physician [facility] Work Phone: 01-05-2022 08:55-0500 Body mass index (BMI) [Ratio] 25.4 kg/m2 No Primary Care Physician [facility] Work Phone: 11-12-2021 20:28-0500 Diastolic blood pressure 81 mm[Hg] No Primary Care Physician [facility] Work Phone: 11-12-2021 20:28-0500 Heart rate 71 /min No Primary Care Physician [facility] Work Phone: 11-12-2021 20:28-0500 Systolic blood pressure 128 mm[Hg] No Primary Care Physician [facility] Work Phone: 11-12-2021 17:55-0500 Body temperature 97.3 [degF] No Primary Care Physician [facility] Work Phone: 11-12-2021 17:55-0500 Respiratory rate 15 /min No Primary Care Physician [facility] Work Phone: 11-12-2021 17:55-0500 SaO2% (BldA) [Mass fraction] 96 % No Primary Care Physician [facility] Work Phone: 11-12-2021 17:53-0500 Body mass index (BMI) [Ratio] 28.2 kg/m2 No Primary Care Physician [facility] Work Phone: 11-12-2021 17:53-0500 Body weight 107.95 kg No Primary Care Physician [facility] Work Phone: 11-09-2021 08:52-0500 Diastolic blood pressure 92 mm[Hg] No Primary Care Physician [facility] Work Phone: 11-09-2021 08:52-0500 Heart rate 74 /min No Primary Care Physician [facility] Work Phone: 11-09-2021 08:52-0500 SaO2% (BldA) [Mass fraction] 95 % No Primary Care Physician [facility] Work Phone: 11-09-2021 08:52-0500 Systolic blood pressure 138 mm[Hg] No Primary Care Physician [facility] Work Phone: 11-09-2021 06:25-0500 Body mass index (BMI) [Ratio] 27.8 kg/m2 No Primary Care Physician [facility] Work Phone: 11-09-2021 06:25-0500 Body temperature 96.9 [degF] No Primary Care Physician [facility] Work Phone: 11-09-2021 06:25-0500 Body weight 106.59 kg No Primary Care Physician [facility] Work Phone: 11-09-2021 06:25-0500 Respiratory rate 18 /min No Primary Care Physician [facility] Work Phone: 10-07-2019 07:48-0500 Body Temperature 96.1 [degF] [facility], [place] 10-07-2019 07:48-0500 BP Diastolic 90 mm[Hg] [facility] , [place] 10-07-2019 07:48-0500 BP Systolic 139 mm[Hg] [facility] [place] 10-07-2019 07:48-0500 Pulse (Heart Rate) 72 /min [facility] 10-07-2019 07:48-0500 Pulse Oximetry 95 % [facility] , [place] 10-07-2019 07:48-0500 Respiratory Rate 16 /min Jocelyn Martinez [facility], [place] 10-07-2019 06:06-0500 BMI (Body Mass Index) 26.7 kg/m2 Jocelyn Martinez [facility], [place] 10-07-2019 06:06-0500 Body weight 102.15 kg Jocelyn Martinez [facility] , [place] 10-06-2019 12:03-0500 Height 195.6 cm Jocelyn Valentin [facility] , [place] Encounters Encounter Date Encounter Type Care Provider Facility Start: 06-03-2025 End: 06-03-2025 Emergency department patient visit No Primary Care Physician -Emergency Department Work Phone: Start: 05-29-2025 End: 05-30-2025 Emergency department patient visit No Primary Care Physician -Emergency Department Work Phone: Start: 05-23-2025 End: 05-23-2025 Patient encounter procedure Rosio AGUILLON -[facility] Work Phone: Start: 05-23-2025 End: 05-23-2025 ambulatory No Primary Care Physician -[facility] Start: 05-22-2025 End: 05-22-2025 Emergency department [...] Work Phone: Start: 04-26-2025 End: 04-26-2025 ambulatory Linden Chavez Facility:[facility] Start: 04-23-2025 End: 04-23-2025 ambulatory No Primary Care Physician -Laboratory Mike GEORGE Start: 04-23-2025 End: 04-23-[address] Linden Chavez DO -Laboratory Mike ANTONIO Start: 04-23-2025 End: 04-23-2025 ambulatory Linden Chavez Facility:[facility] Start: 04-21-2025 End: 04-21-2025 Emergency department patient visit No Primary Care Physician -Emergency Department Work Phone: Start: 03-26-2025 End: 03-26-2025 Emergency department patient visit Dr. Pedro Krishnan DO Work Phone: -Emergency Department Work Phone: Start: 02-16-2025 End: 02-16-2025 Dr. Linden Chavez DO Work Phone: -Emergency Department Work Phone: Start: 02-16-2025 End: 02-16-2025 Emergency department patient visit Dr. Linden Chavez DO Work Phone: [facility] Work Phone: Start: 12-26-2024 End: 12-27-2024 [...] Work Phone: Start: 12-14-2024 End: 12-14-2024 ambulatory Facility:[facility] Start: 12-14-2024 End: 12-14-2024 Patient encounter procedure Ion Alfaro FLOOR COVERING PRINTER.FRAME PULLEY MORTISING MACHINE OPERATOR Work Phone: [facility] Comment on above: [...] Work Phone: Start: 10-29-2024 End: 10-30-2024 Johann Stevencandie DO -Emergency Departmen t Work Phone: Start: 10-29-2024 End: 10-30-2024 Emergency department patient visit [facility] Facility:[facility] Start: 10-19-2024 End: 10-19-2024 Dr. Live Ashley MD -Emergency Department Work Phone: Start: 10-19-2024 End: 10-19-2024 Emergency department patient visit [facility] Facility:[facility] Start: 08-10-2024 End: 08-10-2024 Emergency department patient visit [facility] Facility:[facility] Start: 05-10-2024 End: 05-10-2024 ambulatory Facility:[facility] Start: 05-10-2024 End: 05-10-2024 Patient encounter procedure Rosa Quinones FLOOR COVERING PRINTER.FRAME PULLEY MORTISING MACHINE OPERATOR Work Phone: [facility] Comment on above: Bilateral impacted c eruraudel (Primary Dx) Start: 03-09-2024 End: 03-09-2024 Emergency department patient visit [facility]-Emergency Department Work Phone: Start: 03-08-2024 End: 03-08-2024 Emergency department patient visit [facility]-Emergency Department Work Phone: Start: 02-07-2024 End: 02-08-2024 Emergency department patient visit [facility]-Emergency Department Work Phone: Start: 01-26-2024 End: 01-27-2024 Emergency department patient visit [facility]-Emergency Department Work Phone: Start: 01-05-2024 End: 01-05-2024 ambulatory [facility] Work Phone: Start: 01-05-2024 End: 01-05-2024 Patient encounter procedure [facility]-Mike Freed [facility] Start: 12-25-2023 End: 12-25-2023 Emergency department patient visit [facility]-Emergency Department Work Phone: Start: 12-18-2023 End: 12-18-2023 Emergency department patient visit [facility]-Emergency Department Work Phone: Start: 12-08-2023 End: 12-08-2023 Emergency department patient visit [facility]-Emergency Department Work Phone: Start: 11-22-2023 End: 11-22-2023 [facility] Start: 09-30-2023 End: 10-01-2023 Emergency department patient visit [facility]-Emergency Department Work Phone: Start: 09-29-2023 End: 09-29-2023 Emergency department patient visit [facility]-Emergency Department Work Phone: Start: 08-26-2023 End: 08-26-2023 [facility] Start: 08-18-2023 End: 08-18-2023 Office outpatient visit 15 minutes Jmimy Ramos 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 Work 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: [facility] Comment on above: Bilateral impacted c erumen (Primary Dx) Start: 07-29-2023 End: 07-29-2023 [facility] Start: 05-12-2023 End: 05-12-2023 [facility] Start: 03-07-2023 End: 03-07-2023 Emergency department patient visit [facility]-Emergency Department Start: 01-18-2023 End: 01-18-2023 Emergency department patient visit [facility]-Emergency Department Start: 12-15-2022 End: 12-15-2022 [facility]ulatory [facility] Work Phone: Start: 12-15-2022 End: 12-15-2022 Patient encounter procedure [facility]-[place], Mike Mendez [facility] Start: 12-11-2022 End: 12-11-2022 Emergency department patient visit [facility]-Emergency Department Start: 12-10-2022 End: 12-10-2022 Emergency department patient visit [facility]-Emergency Department Start: 11-25-2022 End: 11-25-2022 [facility] Start: 10-29-2022 End: 10-30-2022 Emergency department patient visit [facility]-Emergency Department Start: 09-18-2022 End: 09-18-2022 Emergency department patient visit [facility]-Emergency Department Start: 08-07-2022 End: 08-07-2022 Emergency department patient visit [facility]-Emergency Department Start: 07-02-2022 End: 07-03-2022 Emergency department patient visit No [facility] Start: 05-26-2022 End: 05-26-2022 Emergency department patient visit No Primary Care Physician [facility]-Emergency Department Start: 04-26-2022 End: 04-26-2022 Emergency department [facility] visit No [facility] Start: 03-20-2022 Non-patient / Non-visit No Primary Care Physician [facility] Inpatient Physicians Start: 03-19-2022 End: 03-20-2022 Evaluation and management of inpatient No Primary Care Physician [facility]-Medical Surgical 3 Start: 03-19-2022 Non-patient / Non-visit No Primary Care Physician [facility] Inpatient Physicians Start: 03-02-2022 End: 03-02-2022 Emergency department patient visit No Primary Care Physician [facility]-Emergency Department Start: 01-31-2022 End: 01-31-2022 Emergency department patient visit No Primary Care Physician [facility]-Emergency Department Start: 01-08-2022 End: 01-08-2022 Emergency department [facility] visit No [facility] Start: 01-07-2022 Non-patient / Non-visit No Primary Care Physician [facility] Inpatient Physicians Start: 01-06-2022 Non-patient / Non-visit No Primary Care Physician [facility] Start: 01-06-2022 Non-patient / Non-visit No Primary Care Physician [facility] Inpatient Physicians Start: 01-05-2022 Non-patient / Non-visit No Primary Care Physician [facility] Start: 01-05-2022 Non-patient / Non-visit No Primary Care Physician [facility] Inpatient Physicians Start: 01-04-2022 Non-patient / Non-visit No Primary Care Physician [facility] Start: 01-04-2022 End: 01-07-2022 Evaluation and management of inpatient No Primary Care Physician [facility] Surgical 3 Start: 11-12-2021 End: 11-12-2021 Emergency department patient visit No Primary Care Physician [facility]-Emergency Department Start: 11-09-2021 End: 11-09-2021 Emergency department patient visit No Primary Care Physician [facility]-Emergency Department Start: 10-05-2019 End: 10-07-2019 Evaluation and management of inpatient Jocelyn Valentin Work Phone: [id number] On[facility] Procedures Date Procedure Procedure Detail Performing Clinician Start: 05-29-2025 Urnls dip stick/tabl et reagent auto microscopy No Primary Care Physician Start: 05-29-2025 Estimated creatinine clearance No Primary Care Physician Start: 05-29-2025 Urine culture No Primar y Care Physician Start: 05-22-2025 Measurement of occul t blood [...] HCV Quant by PCR testing - HCVPCR [id number] Non Reactive: < 0.8 Equivocal: >/= 0.8 [...] and pelvis with intravenous contrast Dr. Linden Cahvez DO Work Phone: Start: 12-20-2024 Urnls dip [...] REFLEX TO MG FOR LOW K Zahira Ramez Work Phone: Start: 10-06-2019 Blood count complete auto&auto difrntl wbc Zahira Myrick Work Phone: Start: 10-05-2019 Gluc bld gluc mntr d ev cleared fda spec home use Jocelyn Valentin Work Phone: Start: 10-05-2019 Basic metabolic pane l calcium total Zahira Myrick Work Phone: Start: 10-05-2019 Blood count complete auto&auto difrntl wbc Zahira Mercadosteffanie Work Phone: Start: 11-21-2013 Colonoscopy Jimmy justice FLOOR COVERING PRINTER.FRAME PULLEY MORTISING MACHINE OPERATOR Work Phone: Start: 06-22-2011 History of placement of stent for coronary artery disease S/P coronary artery stent placement Jimmy Ramos FLOOR COVERING PRINTER.FRAME PULLEY MORTISING MACHINE OPERATOR Work Phone: Bacteria identified in Blood by [...] DTaP,Tdap,Td Vaccine (2 - Td or Tdap) [facility] Start: 12-14-2025 BP Controlled (<130/80) BP Controlled (<130/80) [facility] Start: 06-03-2025 [facility] Start: 05-30-2025 [facility] Start: 05-29-2025 [facility] Start: 05-29-2025 Enteric precautions [facility] Start: 05-29-2025 Bacteria identified in Urine by Culture Urine Culture [facility] Start: 05-22-2025 [facility] Start: 05-03-2025 Bacteria identified in Urine by Culture Urine Culture [facility] Start: 05-03-2025 End: 05-03-2025 [facility] Start: 04-21-2025 [facility] Start: 03-26-2025 [facility] Start: 02-16-2025 End: 02-16-2025 [facility] Start: 12-27-2024 [facility] Start: 12-20-2024 [facility] Start: 12-08-2024 [facility] Start: 11-27-2024 End: 11-27-2024 [facility] Start: 10-30-2024 [facility] Start: 10-19-2024 [facility] Start: 07-01-2024 Covid-19 Vaccine ( season) Covid-19 Vaccine ( season) [facility] Start: 07-01-2024 Influenza vaccination Influenza Vaccine (#1) [facility] Start: 03-09-2024 [facility] Start: 03-08-2024 [facility] Start: 02-08-2024 [facility] Start: 01-27-2024 [facility] Start: 12-25-2023 End: 12-25-2023 [facility] Start: 12-18-2023 [facility] Start: 12-08-2023 [facility] Start: 11-22-2023 [facility] Start: 10-31-2023 Behavioral Health Screening Behavioral Health Screening [facility] Start: 10-01-2023 [facility] Start: 09-29-2023 [facility] Start: 09-29-2023 [facility] Start: 08-26-2023 [facility] Start: 07-01-2023 Covid-19 Vaccine ( season) Covid-19 Vaccine ( season) [facility] Start: 07-01-2023 Influenza vaccination [facility] Start: 01-18-2023 Enteric precautions [facility] Start: 10-31-2022 Depression Assessment Depression Assessment [facility] Start: 10-29-2022 [facility] Start: 08-07-2022 Iv infusion hydration initial 31 min-1 hour HYDRATION IV INFUSION INIT [facility] Start: 04-26-2022 Electrocardiographic procedure [facility] Work Phone: Start: 03-20-2022 Patient discharge [facility] Work Phone: Start: 03-20-2022 Referral to occupational therapist [facility] Work Phone: Start: 03-20-2022 Referral to service [facility] Work Phone: Start: 03-19-2022 Ambulation without limitation [facility] Work Phone: Start: 03-19-2022 Assessment of risk of venous thromboembolism [facility] Work Phone: Start: 03-19-2022 Insertion of catheter into peripheral vein [facility] Work Phone: Start: 03-19-2022 Oxygen therapy [facility] Work Phone: Start: 03-19-2022 Providing care according to standard [facility] Work Phone: Start: 03-19-2022 [facility] Work Phone: Start: 03-19-2022 Admission procedure [facility] Work Phone: Start: 03-19-2022 Following clinical pathway protocol [facility] Work Phone: Start: 03-19-2022 Bacteria identified in Blood by Culture Blood Culture [facility] Work Phone: Start: 03-19-2022 Bacteria identified in Urine by Culture Urine Culture [facility] Work Phone: Start: 03-19-2022 Urine culture Urine Culture [facility] Work Phone: Start: 03-19-2022 Patient referral to dietitian [facility] Work Phone: Start: 03-02-2022 Enteric precautions [facility] Work Phone: Start: 01-07-2022 Patient discharge [facility] Work Phone: Start: 01-06-2022 Care regimes management [facility] Work Phone: Start: 01-06-2022 Notification of physician [facility] Work Phone: Start: 01-06-2022 [facility] Work Phone: Start: 01-04-2022 Following clinical pathway protocol [facility] Work Phone: Start: 01-04-2022 Ambulation without limitation [facility] Work Phone: Start: 01-04-2022 Assessment of risk of venous thromboembolism [facility] Work Phone: Start: 01-04-2022 Insertion of catheter into peripheral vein [facility] Work Phone: Start: 01-04-2022 Oxygen therapy [facility] Work Phone: Start: 01-04-2022 Providing care according to standard [facility] Work Phone: Start: 01-04-2022 Referral to gastroenterology service [facility] Work Phone: Start: 01-04-2022 [facility] Work Phone: Start: 01-04-2022 Catheterization of vein [facility] Work Phone: Start: 01-04-2022 Admission procedure [facility] Work Phone: Start: 01-04-2022 Egd transoral biopsy single/multiple EGD BIOPSY SINGLE/MULTIPLE [facility] Work Phone: Start: 01-04-2022 Egd transoral control bleeding any method EGD CONTROL BLEEDING ANY [facility] Work Phone: Start: 01-04-2022 Enteric precautions [facility] Work Phone: Start: 01-04-2022 Patient referral to dietitian [facility] Work Phone: Start: 05-13-2021 Glaucoma screening Dilated Retinal Exam [facility] Start: 05-13-2021 Hepatitis C antibody, confirmatory test Dilated Retinal Exam [facility] Start: 11-08-2020 Annual PCP Team Chronic Disease Visit Annual PCP Team Chronic Disease Visit [facility] Start: 10-06-2020 Creatinine monitoring Creatinine monitoring [place], [place] Start: 10-06-2020 Potassium monitoring Potassium monitoring [place], [place] Start: 2020 Hepatitis B Vaccine (1 of 3 - Risk 3-dose series) Hepatitis B Vaccine (1 of 3 - Risk 3-dose series) [facility] Start: 2020 RSV Vaccine (1 - 1-dose 60+ series) RSV Vaccine (1 - 1-dose 60+ series) [facility] Start: 2020 RSV Vaccine (1 - Risk 60-74 years 1-dose series) RSV Vaccine (1 - Risk 60-74 years 1-dose series) [facility] Start: 02-17-2020 3 comp foot exam [facility] Start: 02-17-2020 Diabetic foot examination Diabetic Foot Exam [facility] Start: 07-14-2019 Hepatitis B screening Urine Albumin:Creatinine Ratio [facility] Start: 07-14-2019 Hepatitis B surface antibody level LDL Cholesterol [facility] Start: 07-01-2019 Influenza vaccination Flu vaccine (#1) [place], [place] Start: 06-06-2019 Hemoglobin A1c measurement HbA1C [facility] Start: 06-06-2019 Hemoglobin A1c/Hemoglobin.total in Blood HbA1C [facility] Start: 11-21-2018 Colonoscopy Colonoscopy [facility] Start: 11-21-2018 Colorectal Cancer Screening Colorectal Cancer Screening [facility] Start: 11-21-2018 Screening for malignant neoplasm of colon [facility] Start: 2015 Prostate Cancer Screening Discussion Prostate Cancer Screening Discussion [facility] Start: 2015 Prostate specific antigen measurement Prostate Cancer Screening Discussion [facility] Start: 06-08-2014 Fecal Occult Blood Fecal Occult Blood [facility] Start: 06-08-2014 Screening for malignant neoplasm of colon Fecal Occult Blood [facility] Start: 07-22-2012 Pneumococcal vaccination [facility] Start: 07-22-2012 Pneumococcal Vaccine: 50+ (2 of 2 - PCV) Pneumococcal Vaccine: 50+ (2 of 2 - PCV) [facility] Start: 2010 Colon cancer screen colonoscopy Colon cancer screen colonoscopy [place], [place] Start: 2010 Shingles Vaccine (1 of 2) Shingles Vaccine (1 of 2) [place] Start: 2010 Shingrix Vaccine (1 of 2) Shingrix Vaccine (1 of 2) [facility] Start: 2005 Cologuard (FIT-DNA) Cologuard (FIT-DNA) [facility] Start: [address] Colonography [facility] Start: 2005 Screening for malignant neoplasm of colon [facility] Start: 2005 Sigmoidoscopy Sigmoidoscopy [facility] Start: 2000 Diabetes screen Diabetes screen [place], [place] Start: 1978 Annual PCP Team Chronic Disease Visit Annual PCP Team Chronic Disease Visit [facility] Start: 1978 Anxiety Screening Anxiety Screening [facility] Start: 1978 BP Controlled (<130/80) BP Controlled (<130/80) [facility] Start: 1978 Depression Screening Depression Screening [facility] Start: 1978 HIV Screening HIV Screening [facility] Start: 1978 HIV screening HIV Screening [facility] Start: 1975 HIV screen HIV screen [place], [place] Start: 1971 DTaP/Tdap/Td vaccine (1 - Tdap) DTaP/Tdap/Td vaccine (1 - Tdap) [place], [place] Start: 1970 Lipid screen Lipid screen [place], [place] Start: 1960 Hepatitis C screen Hepatitis C screen [place], [place] Acetone [Presence] i n Serum or Plasma [facility] Amphetamine [Mass/vo lume] in Urine [facility] Benzodiazepine measu rement, urine [facility] Bilirubin measurement, urine [facility] C. difficile DNA Amplification C. difficile DNA Amplification [facility] Clostridioides diffi cile DNA [Presence] in Unspecified specimen by IOANA with probe detection [facility] Clostridioides diffi cile DNA [Presence] in Unspecified specimen by IOANA with probe detection [facility] Cocaine measurement, urine [facility] Gastrointestinal pat hogens panel - Stool by IOANA with probe detection [facility] Hemoglobin [Presence ] in Urine [facility] Initiate Oxygen Ther apy Protocol Initiate Oxygen Therapy Protocol Respiratory Care Routine Daily until discontinued starting 10/05/2019 [place], [place] Comment on above: Daily until discontinued starting 2018 Lactoferrin [Presenc e] in Stool by Immunoassay [facility] Measurement of 3,4-methylenedioxymethampheta mine in urine [facility] Measurement of keton es in urine using dipstick [facility] Methadone measurement, urine [facility] Microscopic urinalysis [facility] Ova and parasites id entified in Unspecified specimen by Light microscopy [facility] Patient Education [facility] Work Phone: Patient referral [facility] Work Phone: pH of Urine [facility] pH of Urine [facility] Phencyclidine [Prese nce] in Urine [facility] POCT Glucose [facility], [place] Comment on above: As Needed until discontinued starting 4X Daily (AC & HS) u ntil discontinued starting 10/06/2019 Removal impacted cer umen irrigation/lvg unilat AMBULATORY EAR LAVAGE/IRRIGATION Procedures Routine Bilateral impacted cerumen Ordered: 05/10/2024 [facility] Work Phone: Comment on above: Ordered: 05/10/2024 Specific gravity of Urine [facility] Urinalysis, blood, qualitative [facility] Urine barbiturate measurement [facility] Urine cannabinoid measurement [facility] Urine culture [facility] Urine culture [facility] Urine culture [facility] Urine dipstick for glucose [facility] Urine dipstick for l eukocyte esterase [facility] Urine dipstick for nitrite [facility] Urine dipstick for protein [facility] Urine examination [facility] Urine microscopy: ep ithelial cells [facility] Urine Microscopy: white cells [facility] Urine opiate measurement [facility] Urobilinogen [Presen ce] in Urine [facility] Immunizations Immunization Date Immunization Notes Care Provider Fa cility 11-07-2021 Covid (Pfizer) No Primary Ca re Physician [facility] 04-23-2021 Covid (Moderna) No Primary C are Physician [facility] 03-26-2021 Covid (Moderna) No Primary C are Physician [facility] 11-08-2019 influenza virus vacc ine, unspecified formulation Jimmy Ramos FLOOR COVERING PRINTER.FRAME PULLEY MORTISING MACHINE OPERATOR Work Phone: [facility] 08-08-2012 tetanus and diphther ia toxoids, adsorbed, preservative free, for adult use (2 Lf of tetanus toxoid and 2 Lf of diphtheria toxoid) Jimmy Ramos FLOOR COVERING PRINTER.FRAME PULLEY MORTISING MACHINE OPERATOR Work Phone: [facility] 07-22-2011 pneumococcal polysaccharide vaccine, 23 valent Jimmy Ramos FLOOR COVERING PRINTER.FRAME PULLEY MORTISING MACHINE OPERATOR Work Phone: [facility] Payers Date Payer Category Payer Medicare [id number] 2024 Self-pay [id number] 2023 Private Health Insurance [facility] Member Subscriber Plan / Payer (Effective 2023-Present) Name: Jerald Yoder Relation to Subscriber: Self Name: Jerald Yoder Payer ID: Not on file Group ID: [id number] Type: Indemnity Address: [place] [id number] 2023 Unknown [id number] 2022 Medicaid [id number] 2013 Unknown [id number] 2013 Unknown [id number] Unknown [id number]. 462 Unknown [id number] 2.16.840.1.674386.3.579.2. 462 Unknown [id number] 2.16.840.1.688892.3.579.2. 462 Unknown [id number] 2.16.840.1.946792.3.579.2. 462 Unknown [id number] 2.16.840.1.507205.3.579.2. 462 Unknown [id number] 2.16.840.1.118164.3.579.2. 462 Unknown [id number] 2.16.840.1.059486.3.579.2. 462 Unknown [id number] 2.16.840.1.438295.3.579.2. 462 Unknown [id number] 2.16.840.1.379200.3.579.2. 462 Unknown [id number] 2.16.840.1.176180.3.579.2. 462 Unknown [id number] 2.16.840.1.868520.3.579.2. 462 Unknown [id number] 2.16.840.1.517080.3.579.2. 462 Unknown [id number] 2.16.840.1.196207.3.579.2. 462 Unknown [id number] 2.16.840.1.673252.3.579.2. 462 Unknown [id number] 2..840.1.433944.3.579.2. 462 Unknown [id number] 2.16.840.1.461799.3.579.2. 462 Unknown [id number] 2.16.840.1.614112.3.579.2. 462 Social History Date Type Detail Facility Start: 10-06-2019 End: 06-03-2025 Tobacco smoking status NHIS Never smoker [facility] Start: 10-06-2019 Alcohol intake Ex-drinker (finding) [place], [place] Start: 10-06-2019 Alcohol Comment Last drinking 1992, Hx EtOH 10 years, never attended AA program [place], [place] Start: 1960 Sex Assigned At Not on file [place] Start: 03-02-2022 End: 03-09-2024 Tobacco smoking status AZIS Unknown if ever smoked [facility] Start: 05-16-2021 Rare [facility] Start: 11-25-2020 None [facility] Start: 11-24-2020 Alone [facility] Start: 05-16-2021 Non-smoker [facility] Start: 1960 Sex Assigned At Male [facility] Start: 08-18-2023 Tobacco use and exposure Former smokeless tobacco user [facility] End: 07-01-1978 History of tobacco use User of smokeless tobacco [facility] Start: 08-18-2023 End: 12-14-2024 Alcohol intake Current non-drinker of alcohol (finding) [facility] Start: 10-05-2020 End: 08-18-2023 History of Social function [facility] Start: 10-05-2020 End: 08-18-2023 Tobacco use panel [facility] Adult Depression Screening Assessment 5 [facility] Start: 08-18-2023 Tobacco Comment Quit when he s wallowed a wad of chew playing baseball! [facility] Start: 02-16-2025 Sex Male (finding) [facility] Medical Equipment Procedure Code Equipment Code Equipment Origin al Text Equipment Identifier Dates [id number], [id number] Start: 09-16-2017 Comment on above: Test blood sugar(s) 4 times daily. Dx: 250.02. InsulinDependent: Yes Use once daily with Lantus Goals Date Patient Goal Desired Activity /State Functional Status Date Assessment Result Facility 03-20-2022 Functional status Up ad hailee [facility] Work Phone: 01-07-2022 Functional status Ambulates [facility] Work Phone: 03-17-2015 Are you deaf, or do you have serious difficulty hearing No 03/17/2015 2:45 PM EDT Chantelle Jarrett Ma No [facility] 03-17-2015 Are you blind, or do you have serious difficulty seeing, even when wearing glasses No 03/17/2015 2:45 PM EDT Chantelle Jarrett Ma No [facility] 03-17-2015 Do you have serious difficulty walking or climbing stairs No 03/17/2015 2:45 PM EDT Chantelle Jarrett Ma No [facility] 03-17-2015 Do you have difficul ty dressing or bathing No 03/17/2015 2:45 PM EDT Chantelle Jarrett Ma No [facility] 03-17-2015 Because of a physica l, mental, or emotional condition, do you have difficulty doing errands alone such as visiting a physician's office or shopping No 03/17/2015 2:45 PM EDT Chantelle Jarrett Ma No [facility] Mental Status Date Assessment Result Facility 05-22-2025 Cognitive function Level Of Cons ciousness Awake;Alert;Appropriate;Fol lows Commands [facility] Work Phone: 02-16-2025 Cognitive function Follows Commands;Drows y [facility] Work Phone: 12-08-2024 Cognitive function Awake;Alert;Appropriat e [facility] Work Phone: 10-30-2024 Cognitive function Awake;Alert;Appropriat e [facility] Work Phone: 10-19-2024 Cognitive function Awake;Alert;A ppropriate;Fol lows Commands [facility] Work Phone: 02-07-2024 Cognitive function Level Of Cons ciousness Awake;Alert;Appropriate;Fol lows Commands [facility] Work Phone: 01-26-2024 Cognitive function Level Of Cons ciousness Awake;Alert;Appropriate;Fol lows Commands [facility] Work Phone: 12-25-2023 Cognitive function Level Of Cons ciousness Awake;Alert;Appropriate;Fol lows Commands [facility] Work Phone: 12-08-2023 Cognitive function Level Of Cons ciousness Awake;Alert;Appropriate;Fol lows Commands [facility] Work Phone: 11-22-2023 Cognitive function Level Of Cons ciousness Awake;Alert;Follows Commands [facility] Work Phone: 07-29-2023 Cognitive function Level Of Cons ciousness Awake;Alert;Appropriate;Fol lows Commands [facility] Work Phone: 12-10-2022 Cognitive function Level Of Cons ciousness Awake;Alert;Appropriate;Fol lows Commands [facility] Work Phone: 10-30-2022 Cognitive function Level Of Cons ciousness Awake;Alert;Appropriate;Fol lows Commands;Drowsy [facility] Work Phone: 08-07-2022 Cognitive function Level Of Cons ciousness Awake;Alert;Appropriate;Fol lows Commands [facility] Work Phone: 03-20-2022 Cognitive function Level Of Cons ciousness Drowsy [facility] Work Phone: 03-19-[address] [facility] Work Phone: 03-19-2022 Cognitive function Level Of Cons ciousness Awake;Appropriate;Follows Commands [facility] Work Phone: 01-06-2022 Cognitive function Voice/Name [facility] Work Phone: 03-17-2015 Because of a physica l, mental, or emotional condition, do you have serious difficulty concentrating, remembering, or making decisions No 03/17/2015 2:45 PM EDT [place] Chantelle Pollack No [facility] Clinical Notes 10-13-2015 to 06-03-2025 Note Date & Type Note Facility 06-03-2025 Hospital Discharge instructions Additional Instructions Please take the Lomotil anywhere from 1-4 times a day to help prevent further episodes of diarrhea. Keep yourself well-hydrated. Follow-up with childhood teacher Dr. Obregon to discuss testing for potential food allergens or other causes of your diarrhea. Return to the ER should you have any further concerns [facility] Work Phone: 05-30-2025 Discharge summary [facility] 05-29-2025 Discharge summary Note Date/Time May 30, 2025 12:17am [facility] Medical Records Department [address] [place] [address] Emergency Department Summary 05/29/25 MR#: [id number] Acct: [id number] Name: JERALD YODER Rep #:[id number] : 1960 65 From: Antonette Davis PCP: Dr. Linden Chavez DO Status:REG ER Location: ED HPI HPI - GI History of Present Illness Chief Complaint: Abd Pain Informant: patient Narrative Narrative: Patient 65-year-old male with history of COPD, insulin-dependent diabetes mellitus, hypertension, hyperlipidemia, pancreatitis and chronic diarrhea presenting with diarrhea. Patient has been having ongoing diarrhea for about a year but it is been worse today. He states he had a relatively large meal including baked beans, Saulsberry steak and hotdogs and after that the diarrhea developed. He denies any associated pain. Denies any nausea or vomiting. Denies any fever or chills. States this feels like his prior episodes of diarrhea. Does tell me that he did resume his insulin and his blood sugars been doing muchbetter (in the 120s now). Taking his insulin twice a day. He also tells me that he has an ongoing itchy rash is wondering he can take for it. Of note patient has been seen for this complaint multiple times in the ER over the past 6 months. [facility] Medical History Partial traumatic amputation of [...] PO TID #90 caps 04/21 Unknown Rx metformin 500 mg tablet 500 mg PO BID 30 days #60 ta bs 05/03/25 Unknown Rx sulfamethoxazole 800 1 tab PO BID 7 days #14 tabs 05/03/25 Unknown Rx mg-trimethoprim 160 mg tablet (Bactrim DS) pantoprazole 20 mg tablet,delayed 20 mg PO DAILY #30 t abs 05/22/25 Unknown Rx release (Protonix) lbkalu-merycdhc-yocobpa 1 cap PO TID 05/23/25 Unknow n History 36,000-114,000-180,000 unit capsule,delay rel (Creon) hydroxyzine HCl 25 mg tablet 25 mg PO TID PRN itching #20 tabs 05/29/25 Unknown Rx Allergy/AdvReac Type Severity Reaction Status Date / Time diphenhydramine HCl (From Allergy Rash Verified 05/29/25 22:05 Benadryl) Penicillins Allergy Rash Verified 05/29/25 22:05 venom-honey bee (bee venom Allergy Swelling Verified 05/29/25 22:05 (honey bee)) Surgical History H/O hernia repair Hx of left knee surgery Hx of inguinal herniorrhaphy History of coronary artery stent placement Social History household members: none Smoking Status: Never smoker substance use type: does not use ROS ROS ED Constitutional Constitutional ED: Denies chills or fever(s) Respiratory/Chest Respiratory/Chest: Denies cough Gastrointestinal Gastrointestinal: Reports diarrhea; Denies abdominal pain, nausea or vomiting Genitourinary Genitourinary ED: Denies dysuria Musculoskeletal Musculoskeletal: Denies arthralgias or myalgias Integumentary Reports rash Neurologic Neurologic: Denies weakness EXAM Physical Exam Const Vital Signs: 05/29/25 22:05 Temperature 98.8 F Temperature Source Oral Pulse Rate 75 Respiratory Rate 16 Blood Pressure 125/76 H Blood Pressure Mean 92 Pulse Ox 98 Oxygen Delivery Method Room Air Positive well nourished and well developed General Appearance ED: well developed and NAD HEENT Reports moist mucous membranes Neck supple Resp normal respiratory effort and clear to auscultation bilaterally Cardio regular rate and regular rhythm GI non-tender and non-distended Auscultation: normoactive bowel sounds Palpation: soft; Negative for tender or guarding Extremity General Extremety ED: Negative for edema General Extremity: Negative for edema Neuro moves all extremities Sensorium / Orientation: alert, oriented to person, oriented to place and oriented to time Motor Exam: Negative for general weakness Psych mental status grossly normal and thought process normal Skin Skin Narrative: Scattered abrasions and ulcerated scabbed over lesions on the extremities and most pronounced on the right back consistent with prurigo MDM MDM MDM Narrative Medical decision making narrative: Patient evaluated for recurrent diarrhea. He is well-appearing normal vital signs. Differential includes infectious diarrhea, chronic diarrhea (patient is on Creon), diverticulitis (lower suspicion as no fever, pain or leukocytosis), functional diarrhea and electrolyte derangement/TARYN. Lab work largely normal and reassuring. Denies any bleeding associated with hisdiarrhea. Do not think he requires any CT imaging. I did order urinalysis and's stool studies however patient unable provide samples. I do not think he needs to stay longer so she is more of a chronic condition is not having any urinary symptoms and that he has a benign abdominal exam. For his itching will prescribe hydroxyzine to see if this helps. Is given return precautions. Encouraged an appointment with his family doctor. I discussed to avoid eating a particularly heavy meals and space out his eating more throughout the day. He verbalized understand this. Discharged home in stable condition. Did review GI visit note from 05/23/2025?was offered colonoscopy refused. Encouraged to increase his Creon to 3 capsules with every meal, 2 capsule with asnack and 1 capsule with beverage that contains calories. Was not taking it correctly. Lab Data Attestation: I reviewed the patient's lab results. Labs: Laboratory Results - last 24 hr 05/29/25 22:25 WBC 8.3 RBC 4.35 L Hgb 12.5 L Hct 36.6 L MCV 84.1 MCH 28.7 MCHC 34.2 RDW Std Deviation 42.3 RDW Coeff of Manjinder 13.7 Plt Count 204 MPV 9.0 Immature Gran % (Auto) 0.400 Neut % (Auto) 60.2 Lymph % (Auto) 23.1 Crawford % (Auto) 9.6 Eos % (Auto) 5.9 H Baso % (Auto) 0.8 Absolute Neuts (auto) 5.0 Absolute Lymphs (auto) 1.92 Nucleated RBC % 0 Sodium 141 Potassium 4.2 Chloride 107 Carbon Dioxide 23.3 Anion Gap 11 BUN 19 Creatinine 0.87 Estim Creat Clear Calc 116.80 Est GFR (MDRD) Non-Af 96 BUN/Creatinine Ratio 21.4 H Glucose 117 H Calcium 8.9 Total Bilirubin 0.31 AST 16 ALT 12 Alkaline Phosphatase 83 Total Protein 6.6 Albumin 3.8 Globulin 2.8 Albumin/Globulin Ratio 1.4 Lipase 24 Discharge Plan Triage Chief Complaint: Abd Pain Other Complaint: Diarrhea ED Provider: Antonette Dominguez Dx/Rx/DC Orders Clinical Impression: Diarrhea, Prurigo Instructions: ED Diarrhea, Unknown Cause Prescriptions: New hydroxyzine HCl 25 mg tablet 25 mg PO TID PRN (Reason: itching) Qty: 20 0RF No Action Creon 36,000-114,000- 180,000 unit capsule,delayed release(DR/EC) 1 cap PO TID Rx Instructions: administer with meals and/or snacks metformin 500 MG tablet 500 mg PO [...] PO BID 7 Days Qty: 14 0RF gabapentin 100 mg capsule 100 mg PO TID Qty: 90 0RF sulfamethoxazole-trimethoprim [Bactrim DS] 800-160 mg tablet 1 tab PO BID 7 Days Qty: 14 0RF metformin 500 mg tablet 500 mg PO BID 30 Days Qty: 60 0RF pantoprazole [Protonix] 20 mg tablet,delayed release (DR/EC) 20 mg PO DAILY Qty: 30 0RF Primary Care Provider: Linden Chavez Referrals: Linden Chavez DO [Primary Care Provider] - Activity Restrictions/Additional Instructions: Avoid eating overly heavy meals. Your lab work and vital signs were normal today. Per the GI office notes if you eat a heavy meal you should actually take 3 capsules of your Creon. You should have 2 capsules with snacks and 1 capsule of beverages that contain calories. Print Language: Chilean Disposition Disposition: Home, Self Care What to do if you have Problems For any increased pain, shortness of breath, bleeding, nausea or vomiting, chestpain, or any unexpected problems, contact your Primary Care Provider. Call [facility] ([phone]) or report to the closest Emergency Room. Call 911 if necessary. 05/29/25 2326 <Electronically signed by Antonette Dominguez DO> Cosigner Signature (if applicable): CC: Dr. Linden Chavez DO ~ Signed ADDENDUM by Dr. Antonette Dominguez DO on 05/29/25 at 2330 EKG reviewed by emergency medicine physician Normal sinus rhythm rate 77 bpm Left axis deviation Normal intervals Normal ST segment 05/29/252329<Electronically signed by Antonette Dominguez DO> Cosigner Signature (if applicable): cc: Dr. Linden Chavez DO ~* Signed ADDENDUM by Dr. Antonette Dominguez DO on 05/30/25 at 0016 Urinalysis shows nitrates, bacteria and white blood cells. Will be started on Macrobid. Urine culture sent. First dose is given in the emergency room. Diagnosis?urinary tract infection Diarrhea?chronic 05/30/25 0016<Electronically signed by Antonette Dominguez DO> Cosigner Signature (if applicable): cc: Dr. Linden Chavez DO ~* Signed [facility] Work Phone: 1(294) 350-723507-24-2025 Evaluation note* Diagnosis Onset Date Resolution Status Admit Date Diarrhea inactive May 23 11:09am [facility] Work Phone: 1(870) 582-436606-22-2025 Discharge summary [facility] Medical Records Department [address] [place] [address] Emergency Department Summary 04/21/25 MR#: [id number] Acct: [id number] Name: JERALD YODER Rep #:[id number] : [...] and trauma to the anterior left knee. Hestates it is not painful just feels weird [...] similar symptoms: No Recent Illness/Hospitalization: No PFSH PFS Medical History Partial traumatic amputation [...] to inspection, nondistended, normoactive bowel sounds, non-tender, non- distended and no masses GI Narrative: There is no pain ovation of the right or left iliac bone, right or left ischial tuberosity or pubicsymphysis. Auscultation: normoactive bowel sounds Back/Spine no thoracic [...] He was instructed to follow-up with his doctorfor dose adjustments. Discharge Plan Triage Chief Complaint: Fall ED Provider: Ar Calle Dx/Rx/DC Orders Clinical Impression: Contusion of left knee, initial encounter, Coronary atherosclerosis of saxman coronary artery, Essential hypertension, HLD (hyperlipidemia), History [...] is located on your insurance card issued toy by [employer] Language: Chilean Disposition Disposition: Home, Self Care What to do if you have Problems For any increased pain, shortness of breath, bleeding, nausea or vomiting, chestpain, or any unexpected problems, contact your Primary Care Provider. Call [facility] ([phone]) or report tothe closest Emergency Room. Call 911 if necessary. 04/21/25 1309 Cosigner Signature (if applicable): CC: No Primary Care Physician ~ Signed [facility]06-22-2025 Radiology Diagnostic study note [facility] Imaging Services [address] [place] [address] Knee 4 or More Views MR#: [id number] Acct: [id number] Name: JERALD YODER Rep #: [id number] : 1960 M 65 From: Pet er Peer DO PCP: Care Physician,No Primary Status: REG ER Study:Knee 4 or More Views Date of Exam: 04/21/25 Exam# [id number] Ordering Dr: Zuleyka Calle MD PROCEDURE: KNEE 4 OR MORE VIEWS 04/21/2025 REASON FOR EXAM: INJURY/PAIN Initial encounter TECHNIQUE: KNEE 4 OR MORE VIEWS COMPARISON: None. FINDINGS: Bones: No fracture. No dislocation. Joints: Cartilage thinning and periarticular osteophytes indicate osteoarthritis Effusion: None. Soft tissues: Unremarkable Other: RAD/Knee 4 or More Views IMPRESSION: No acute process detected. Reading [facility] CC: Dr. Ar Calle MD; No Primary Care Physician ~ Barrel Loader And Cleaner: Signed [facility]04-19-2025 Radiology Diagnostic study noteW[facility]Ohio[facility]25 NoteHNO ID: [id number] Author: ION ALFARO 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 Service: ? Author Type: Nurse Practitioner [...] - CETIRIZINE 10 MG TABLET Ion Alfaro [facility] History of Present illness Narrative* Ion Alfaro APRN.TAMY - 12/14/2024 9:32 AM EST This note was created using MODLOFTriter. Subjective Jerald Yoder is a 64 year [...] kg (217 lb 9.5 oz) SpO2 97% BMI27.02 kg/m Physical Exam Vitals and nursing note [...] - CETIRIZINE 10 MG TABLET Ion Alfaro 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 documented in this encounterGrand [facility] Nurse Note* Cristina Dominguez - 05/10/2024 8:10 PM EDT Ambulatory Ear Lavage Pre-treatment: Warm water Treatment: Both ears Equipment and Irrigation solution and Volume used: Single use syringe with single use irrigation tip Return flow appearance: Deandre Patient tolerated procedure: yes Tympanic membrane assessment: Tympanic membrane assessed by LIP pre-procedure Josef Lee APRN [facility]07-11-2024 Nurse Note* Cristina Dominguez - 05/10/2024 8:10 PM EDT Ambulatory Ear Lavage Pre-treatment: Warm water Treatment: Both ears Equipment and Irrigation solution and Volume used: Single use syringe with single use irrigation tip Return flow appearance: Deandre Patient tolerated procedure: yes Tympanic membrane assessment: Tympanic membrane assessed by LIP pre-procedure Josef Lee APRN documented in this encounterGrand Lake [facility]07-11-2024 NoteHNO ID: [id number] Author: ROSA QUINONES 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 Service: ? Author Type: Nurse Practitioner Type: Progress Notes Filed: 05/11/2024 08:47 Note Text: This note was created using MODLOFTriter. Subjective Jerald Yoder is a 64 year [...] or chills Denies using homeopathic or OTC OPERATING COST CLERK. Requesting ear irrigation. The history is provided by the patient. No bronze plater was used. Ear Problem There is pain [...] Colon polyp 2013 adenomatous Coronary artery disease AL in 1994 Diabetic neuropathy (HCC) DM (diabetes mellitus) (HCC) Femur fracture (HCC) GERD (gastroesophageal reflux disease) Heart attack (HCC) 1999 Hyperthyroidism 1993 I131 treatment... Mac. Hypothyroidism s/p I131 treatment Nasal fracture Overweight Pneumonia PAST SURGICAL HISTORY Procedure Laterality Date AMP /TH 11/01 JT/PHALANX W/NEURECT W/DIR CLSR left index-partial [...] daily before breakfast. flash glucose scanning reader ([employer] CLAUDIA 14 DAY READER) misc 1 Device [...] rhinorrhea and sore throat. (more content not included)...[facility]07[facility] History of Present illness Narrative* Rosa Quinones APRN.[facility] - 05/10/2024 7:47 PM EDT This note was created using MODLOFTriter. Subjective Jerald Yoder is a 64 year [...] or chills Denies using homeopathic or OTC OPERATING COST CLERK. Requesting ear irrigation. The history is provided by the patient. No bronze plater was used. Ear Problem There is pain [...] Colon polyp 2013 adenomatous Coronary artery disease [place] in 1994 Diabetic neuropathy (HCC) DM (diabetes [...] Puffs as instructed every 4 hours asneeded. gabapentin (NEURONTIN) 300 mg capsule Take 1 [...] breakfast for 14 days. 1/2hr before meal. FAMILY HISTORY Problem Relation Age [...] kg (222 lb 10.6 oz) SpO2 96% BMI27.65 kg/m Physical Exam Vitals and nursing note [...] normal. - AMBULATORY EAR LAVAGE/IRRIGATION Rosa Quinones 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 documented in this encounterGrand [facility]04-09-2024 Discharge summary Author Keenan Wu [facility] February 08, 2024 12:12am Note Date/Time February 07, 2024 9:10 pm [facility] Medical Records Department [address] [place] [address] Emergency Department Summary 02/07/24 MR#: [id number] Acct: [id number] Name: JERALD YODER Rep #:[id number] : [...] nausea or vomiting. Denies diarrhea or constipation. [facility] Medical History Back pain due to [...] Clarity Clear Urine pH 6.0 Ur Specific Kittrell 1.015 Urine Protein 15 H Urine Glucose [...] Color Urine Clarity Urine pH Ur Specific Kittrell Urine Protein Urine Glucose (UA) Urine Ketones [...] your Primary Care Provider. Call [facility] ([phone]) or report to the closest Emergency Room. Call 911 if necessary. 02/08/24 0012 <Electronically signed by Keenan Wu DO> Cosigner Signature (if applicable): CC: Dr. Linden Chavez DO ~ Signed [facility] Work Phone: 1(806) 346-900901-23-2024 Discharge summary Author Barry Mathew [facility] November 22, 2023 5:13pm Note Date/Time November 22, 2023 3 :08pm [facility] Medical Records Department [address] [place] [address] Emergency Department Summary 11/22/23 MR#: [id number] Acct: [id number] Name: JERALD YODER Rep #:[id number] : [...] states that while he was at his lhkxfgs-cx-axw's, he felt weak and fell, but did not hurt himself. He presents via EMS with generalized weakness. He states he has been eating and drinking well, to the point where he had 4 hotdogs prior to arrival. He denies any chestpain or shortness of breath. No exacerbating or alleviating factors. [facility] Medical History Back pain due to [...] not feel that he requires observation. His llknvji-se-aga is here. They are comfortable with discharge. [...] Sl. Cloudy Urine pH 5.0 Ur Specific Kittrell 1.020 Urine Protein 15 H Urine Glucose [...] Signed: Brent Gray MD at 15:48 EST Reading Location ID and State: [facility] / [place] , Service support , Discharge Plan Triage Chief [...] your Primary Care Provider. Call [facility] ([phone]) or report to the closest Emergency Room. Call 911 if necessary. 11/22/231712 <Electronically signed by Barry Mathew MD> Cosigner Signature (if applicable): CC: Dr. Linden Chavez DO ~ Signed [facility] Work Phone: 1(348) 875-215611-30-2023 Discharge summary Author Barry Mathew [facility] September 29, 2023 11:33pm Note Date/Time September 29, 2023 9:05pm [facility] Medical Records Department [address] [place] [address] Emergency Department Summary 09/29/23 MR#: [id number] Acct: [id number] Name: JERALD YODER Rep #:[id number] : 1960 63 From: Barry Mathew MD PCP: Dr. Linden Chavez DO Status:REG ER Location: ED HPI History of Present Illness Chief Complaint: Nausea/Vomiting/Diarrhea Narrative Narrative: 63-year-old male past medical history of hypertension, presents with nausea and diarrhea that he has had for the last 5 hours. He states he ate at the [employer]? and had a salad with 6 ranch [...] No chest pain or shortness of breath. [facility] Medical History Back pain due to [...] Signed: Aung Oglesby MD at 22:26 EST Reading Location ID and State: [address] [place] [address] Tel , Service support , Discharge Plan Triage Chief Complaint: Nausea/Vomiting/Diarrhea [...] your Primary Care Provider. Call [facility] ([phone]) or report to the closest Emergency Room. Call 911 if necessary. 09/29/236 <Electronically signed by Barry Mathew MD> Cosigner Signature (if applicable): CC: Dr. Linden Chavez DO ~ Signed [facility] Work Phone: 1(889) 583-105110-19-2023 History of Present illness Narrative* Jimmy Ramos, SANDRA.FRAME PULLEY MORTISING MACHINE OPERATOR - 08/18/2023 4:12 PM EDT Subjective HPI [...] Colon polyp 2013 adenomatous Coronary artery disease [place] in 1994 Diabetic neuropathy (HCC) DM (diabetes [...] daily before breakfast. flash glucose scanning reader ([employer] CLAUDIA 14 DAY READER) misc 1 Device [...] of care. This note was generated using rubberit software. It may contain errors in wording, punctuation, or spelling. Jimmy Ramos 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 documented in this encounterGrand Lake [facility]02-11-[address] Wu [facility] December 11, 2022 9:32pm Note Date/Time December 11, 2022 4:55pm [facility] Medical Records Department [address] [place] [address] Emergency Department Summary 12/11/22 MR#: [id number] Acct: [id number] Name: JERALD YODER Rep #:[id number] : [...] Hassan but has not made an appointment. [facility] Medical History Back pain due to [...] Color Urine Clarity Urine pH Ur Specific Kittrell Urine Protein Urine Glucose (UA) Urine Ketones [...] Clarity Clear Urine pH 6.0 Ur Specific Kittrell 1.015 Urine Protein 15 H Urine Glucose [...] 17:32 EST Reading Location ID and State: [address] [place] [address] Tel [phone], Service support , Discharge Plan Triage Chief [...] Referrals: Linden Chavez DO [Med Staff - [facility]] - As soon as possible Disposition Disposition: Home, Self Care What to do if you have Problems For any increased pain, shortness of breath, bleeding, nausea or vomiting, chestpain, or any unexpected problems, contact your Primary Care Provider. Call [facility] ([phone]) or report to the closest Emergency Room. Call 911 if necessary. 12/11/222131 <Electronically signed by Keenan Wu DO> Cosigner Signature (if applicable): CC: Dr. Iván Hassan MD ~ Signed [facility] Work Phone: 1(433) 383-694601-26-[address] Calle [facility] November 25, 2022 3:03pm Note Date/Time November 25, 2022 1 :30pm [facility] Medical Records Department [address] [place] [address] Emergency Department Summary 11/25/22 MR#: [id number] Acct: [id number] Name: JERALD YODER Rep #:[id number] : [...] infectious symptoms. He denies chest pain, dyspnea, [place] exertion, orthopnea PND. He does endorse crampy [...] 24 hr 500 mg PO BID diabetes 07/03/19 [History Last Taken 03/18/22] fluconazole 200 mg [...] Plan Triage Chief Complaint: Nausea/Vomiting/Diarrhea ED Provider: CalleAr Dx/Rx/DC Orders Clinical Impression: Abdominal pain, vomiting, [...] on your insurance card issued to you [facility] 2. Increase fluid intake today 3. You need to take your medication as prescribed and you need to be compliant with your diet Disposition Disposition: Home, Self Care What to do if you have Problems For any increased pain, shortness of breath, bleeding, nausea or vomiting, chestpain, or any unexpected problems, contact your Primary Care Provider. Call [facility] ([phone]) or report to the closest Emergency Room. Call 911 if necessary. 11/25/22 1503 <Electronically signed by Ar Calle MD> Cosigner Signature (if applicable): CC: No Primary Care Physician ~ Signed [facility] Work Phone: [phone]) 520-863712-14-2015 History of Past illness Narrative* Problem Noted Date Diagnosed Date Resolved Date Ankle fracture, left 10/13/2015 017 COPD (chronic obstructive pulmonary disease) 1 11/17/2019 documented as of this encounter (statuses as of 08/18/2023) [facility]. Chavez [facility] January 18, 2023 9:52am Note Date/Time January 18, 2023 8:1 7am [facility] Medical Records Department [address] [place] [address] Emergency Department Summary 01/18/23 MR#: [id number] Acct: [id number] Name: JERADL YODER Rep #:[id number] : 1960 62 [...] he feels lightheaded when he stands up. [facility] Medical History Back pain due to [...] history of alcohol abuse. Medications: Reviewed in [place], the nurse had just gone over them [...] your Primary Care Provider. Call [facility] ([phone]) or report to the closest Emergency Room. Call 911 if necessary. 01/18/23 0952 <Electronically signed by Bernard Chavez MD> Cosigner Signature (if applicable): CC: Dr. Linden Chavez DO ~ Signed [facility] Work Phone: Discharge summary Author [facility] March 08, 2024 8:59am Note Date/Time March 08, 2024 8:14am [facility] Medical Records Department [address] [place] [address] Emergency Department Summary 03/08/24 MR#: [id number] Acct: [id number] Name: JERALD YODER Rep #:[id number] : [...] therefore comes to the hospital for evaluation. [facility] Medical History Back pain due to [...] ID and State: [facility] / [place] , Service support , Acute abdominal series [...] your Primary Care Provider. Call [facility] ([phone]) or report to the closest Emergency Room. Call 911 if necessary. 03/08/24 0859 <Electronically signed by Johann Lemons DO> Cosigner Signature (if applicable): CC: Dr. Linden Chavez DO ~ Signed [facility] Work Phone: Discharge summary Author Ar Calle [facility] Note Date/Time April 21, 2025 1:09 pm [facility] Medical Records Department [address] [place] [address] Emergency Department Summary 04/21/25 MR#: [id number] Acct: [id number] Name: JERALD YODER Rep #:[id number] : [...] IMPRESSION: No acute process detected. Reading [facility] Treatment and Re-Evaluation Narrative: Patient [...] left knee, initial encounter, Coronary atherosclerosis of saxman coronary artery, Essential hypertension, HLD (hyperlipidemia), History [...] your insurance card issued to you by [employer] Language: Chilean Disposition Disposition: Home, Self Care What to do if you have Problems For any increased pain, shortness of breath, bleeding, nausea or vomiting, chestpain, or any unexpected problems, contact your Primary Care Provider. Call [facility] ([phone]) or report to the closest Emergency Room. Call 911 if necessary. 04/21/25 1309 <Electronically signed by Ar Calle MD> Cosigner Signature (if applicable): CC: No Primary Care Physician ~ Signed [facility] Work Phone: Evaluation note* Diagnosis Onset Date Resolution Status Abdominal pain resolved Diarrhea resolved Gastroparesis resolved Hyperglycemia resolved [facility] Work Phone: Evaluation note* Diagnosis Onset Date Resolution Status Abdominal pain resolved Diarrhea resolved Gastroparesis resolved Hyperglycemia resolved Acute diarrhea acute Generalized weakness acute Transient hypotension acute [facility] Work Phone: Evaluation note* Diagnosis Onset Date Resolution Status Abdominal pain resolved Diarrhea resolved Gastroparesis resolved Hyperglycemia resolved Acute diarrhea resolved Generalized weakness resolve d Transient hypotension resolv ed [facility] Work Phone: Evaluation note* Diagnosis Onset Date Resolution Status Acute diarrhea resolved Generalized weakness resolve d Transient hypotension resolv ed [facility] Work Phone: Evaluation noteNo assessment information available [facility] Work Phone: Evaluation note* Diagnosis Bilateral impacted cerumen- Primary Impacted cerumen [facility] Diagnosis Bilateral impacted cerumen- Primary Impacted cerumen documented in this encounter [facility]* Diagnosis Eustachian tube dysfunction, bilateral- Primary documented in this encounter [facility] Dis[facility] instructionsW[facility] Work Phone: Hospital Discharge instructionsCl[facility] Work Phone: Hospital Discharge instructionsCl[facility] Work Phone: Hospital Discharge instructions Additional Instructions 1. The name of your doctor is located on your insurance card issued to you from [facility] 2. Increase fluid intake today 3. You need to take your medication as prescribed and you need to be compliant with your dietWUC Medical Center Work Phone: Hospital Discharge instructions Additional Instructions Blood glucose 250. Labs stable EKG normal. Continue oral fluids. Follow-up with your doctor to restart heart your medications.[facility] Work Phone: Hospital Discharge instructions Additional Instructions Laboratory studies stable glucose 340s with no signs of DKA. Insulin with improvement down to 130s. Continue oral fluids for hydration. Follow-up with your doctor. Return if worsening symptoms.[facility] Work Phone: Hospital Discharge instructions Additional Instructions Pepto-Bismol will turn his stools black. This is an expected side effect of that medication, you are testing negative for blood, so likely due to that medication. If you take it in the future and to turn your stool black temporarily, you do not need to be concerned. If you see blood return to the ER.[facility] Work Phone: Hospital Discharge instructions Additional Instructions Your CT showed no broken bones. Use ice and take tkdc-igi-wcjhwmg Tylenol and Motrin as needed for pain.[facility] Work Phone: Hospital Discharge instructions Additional Instructions Your CT scan showed no sign of bowel blockage. It did show changes consistent with constipation . Take MiraLAX as directed every day to prevent these recurrent issues . please keep yourself well-hydrated and continue to take your diabetic medication as directed. Return to the ER should you have any further concerns.[facility] Work Phone: Hospital Discharge instructions Additional Instructions When you get home drink half the bottle of magnesium citrate. If you do not have a bowel movement in 4 hours finished the bottle. Once the magnesium citrate is stimulated bowel movement continue to the MiraLAX daily to help with recurrent bowel movements and resolve your constipation.[facility] Work Phone: Hospital Discharge instructions Additional [...] the ER should you have any further concernsWooOhioHealth [facility]in [facility] Hospital Work Phone: Hospital Discharge instructions Additional Instructions Thank you for trusting us with your care today! Please take Tylenol (2 pills, 650 mg), ibuprofen (2 pills, 400 mg) every 6 hours as needed for pain and fever control. Please return to the emergency department if your symptoms change or worsen. Please follow with your primary care physician for further outpatient evaluation and management.[facility] Work Phone: Hospital Discharge instructions Additional Instructions Call your doctor for follow-up. The name of your doctor is located on your insurance card issued to you by [facility] Work Phone: Hospital Discharge instructionsAdditional Instructions [...] high. Take all of the antibiotics as prescribed.[facility] Work Phone: Hospital Discharge instructionsAdditional Instructions [...] and told you need to come follow-up quickly.[facility] Work Phone: Hospital Discharge instructionsAdditional Instructions Avoid eating overly heavy meals. Your lab work and vital signs were normal today. Per the GI office notes if you eat a heavy meal you should actually take 3 capsules of your Creon. You should have 2 capsules with snacks and 1 capsule of beverages that contain calories.[facility] Work Phone: Reason for referral (narrative)No reason for referral information availableWUC Medical Center Work Phone: Hospital Course * [...] DISCHARGE MEDICATIONS: Jerald Yoder Home Medication Instructions IFEOMA:[id number] Printed on:10/06/19 1522 Medication Information aspirin 81 [...] Complexity: follow up within 7-14 calendar days (88841) [] Severe Complexity: follow up within 7 calendar days (41807) FOLLOW UP TESTING, PENDING RESULTS OR REFERRALS [...] at most local grocery stores, pharmacies, and [employer]. ? If you have any questions about [...] monitored and followed by the diet metallurgical technician. * Vini Calloway RN - 10/06/2019 [...] FoundDocuments on File Type Date Recorded Patient Supervisor Cloth Winding Expl anation Advance Directives and Living Will Power of Baby Nurse Latest Code Status on File Code Status Date Activated Date Inactivated Comments Full Code 10/06/2019 11:12 AM Full Code 10/05/2019 5:27 PM 10/06/2019 11:12 AM Advance Directive Response Recorded Date/ Time Advance Directives No November 30, 2016 10:29am Living Will No March 02, 2022 7: 27pm Power of Baby Nurse No March 02, 2022 7:27pm Advance Directive Response Recorded Date/ Time Advance Directives No November 30, 2016 10:29am Living Will No March 19, 2022 5 :35pm Power of Baby Nurse No March 19, 2022 5:35pm Advance Directive Response Recorded Date/ Time Advance Directives No November 30, 2016 10:29am Living Will No March 19, 2022 1 1:38pm Power of Baby Nurse No March 19, 2022 11:38pm Advance Directive Response Recorded Date/ Time Advance Directives No November 30, 2016 10:29am Living Will No April 26, 2022 2:33pm Power of Baby Nurse No April 26 2:33pm Advance Directive Response Recorded Date/ Time Advance Directives No November 30, 2016 10:29am Living Will No May 26, 2022 1:38am Power of Baby Nurse No May 26 1:38am Advance Directive Response Recorded Date/ Time Advance Directives No November 30, 2016 10:29am Living Will No July 02 9:45pm Power of Baby Nurse No July 02, 2022 9:45pm Advance Directive Response Recorded Date/ Time Advance Directives No November 30, 2016 10:29am Living Will No August 07 6:50pm Power of Baby Nurse No August 07 022 6:50pm Advance Directive Response Recorded Date/ Time Advance Directives No November 30, 2016 9:29am Living Will No September 18 022 10:57am Power of Baby Nurse No September 18, 2022 10:57am Advance Directive Response Recorded Date/ Time Advance Directives No November 30, 2016 9:29am Living Will No November 25 2:07pm Power of Baby Nurse No November 25, 2022 2:07pm Advance Directive Response Recorded Date/ Time Advance Directives No November 30, 2016 9:29am Living Will No December 10 2 023 9:57am Power of Baby Nurse No December 10, 2022 9:57am Advance Directive Response Recorded Date/ Time Advance Directives No November 30, 2016 9:29am Living Will No December 11, 2 023 4:20pm Power of Baby Nurse No December 11, 2022 4:20pm Advance Directive Response Recorded Date/ Time Advance Directives No November 30, 2016 10:29am Living Will No January 18, 2023 8:03am Power of Baby Nurse No January 18 8:03am Advance Directive Response Recorded Date/ Time Advance Directives No November 30, 2016 10:29am Living Will No March 07, 2023 1: 12am Power of Baby Nurse No March 07, 2023 1:12am Advance Directive Response Recorded Date/ Time Advance Directives No November 30, 2016 10:29am Living Will No May 12, 2023 3:57pm Power of Baby Nurse No May 12 3:57pm Advance Directive Response Recorded Date/ Time Advance Directives No November 30, 2016 10:29am Living Will No August 26 5:10am Power of Baby Nurse No August 26, 2023 5:10am Advance Directive Response Recorded Date/ Time Advance Directives No November 30, 2016 9:29am Living Will No September 29 023 8:45pm Power of Baby Nurse No September 29, 2023 8:45pm Advance Directive Response Recorded Date/ Time Advance Directives No November 30, 2016 9:29am Living Will No September 30 11:40pm Power of Baby Nurse No September 30, 2023 11:40pm Advance Directive Response Recorded Date/ Time Advance Directives No November 30, 2016 9:29am Living Will No November 22 2:25pm Power of Baby Nurse No November 22, 2023 2:25pm Advance Directive Response Recorded Date/ Time Advance Directives No November 30, 2016 9:29am Living Will No December 08 12:56pm Power of Baby Nurse No December 08, 2023 12:56pm Advance Directive Response Recorded Date/ Time Advance Directives No November 30, 2016 9:29am Living Will No December 18 024 4:23pm Power of Baby Nurse No December 18, 2023 4:23pm Advance Directive Response Recorded Date/ Time Advance Directives No November 30, 2016 9:29am Living Will No December 25 024 8:47am Power of Baby Nurse No December 25, 2023 8:47am Advance Directive Response Recorded Date/ Time Advance Directives No November 30, 2016 10:29am Living Will No December 25 024 9:47am Power of Baby Nurse No December 25, 2023 9:47am Advance Directive Response Recorded Date/ Time Advance Directives No November 30, 2016 10:29am Living Will No January 26, 2024 11:41pm Power of Baby Nurse No January 25 11:41pm Advance Directive Response Recorded Date/ Time Advance Directives No November 30, 2016 10:29am Living Will No February 07, 2024 7:17pm Power of Baby Nurse No February 06 7:17pm Advance Directive Response Recorded Date/ Time Advance Directives No November 30, 2016 10:29am Living Will No March 08, 2024 6: 24am Power of Baby Nurse No March 08, 2024 6:24am Advance Directive Response Recorded Date/ Time Advance Directives No November 30, 2016 10:29am Living Will No March 09, 2024 1 :35am Power of Baby Nurse No March 09, 2024 1:35am Advance Directive Response Recorded Date/ Time Living Will No October 19, 2 024 4:56am Do you have a Healthcare Power of Baby Nurse? No October 19, 2024 4:56am Living Will No December 20 2 025 6:56pm Do you have a Healthcare Power of Baby Nurse? No December 20, 2024 6:56pm Living Will No October 30, 2 024 1:19am Do you have a Healthcare Power of Baby Nurse? No October 30, 2024 1:19am Living Will No November 27 2:38pm Do you have a Healthcare Power of Baby Nurse? No November 27, 2024 2:38pm Living Will No December 08 1:33pm Do you have a Healthcare Power of Baby Nurse? No December 08, 2024 1:33pm Living Will No December 27, 2 025 2:11am Do you have a Healthcare Power of Baby Nurse? No December 27, 2024 2:11am Living Will No February 16, 2025 4:01am Do you have a Healthcare Power of Baby Nurse? No February 16, 2025 4:01am Advance Directives No November 30, 2016 10:29am Advance Directive Response Recorded Date/ Time Living Will No December 20, 2 025 6:56pm Do you have a Healthcare Power of Baby Nurse? No December 20, 2024 6:56pm Living Will No November 27 2:38pm Do you have a Healthcare Power of Baby Nurse? No Cris 28th, 2025 2:38pm Living Will No December 08 1:33pm Do you have a Healthcare Power of Baby Nurse? No December 08, 2024 1:33pm Living Will No December 27, 025 2:11am Do you have a Healthcare Power of Baby Nurse? No December 27, 2024 2:11am Living Will No February 16, 2025 4:01am Do you have a Healthcare Power of Baby Nurse? No February 16, 2025 4:01am Do you have a Healthcare Power of Baby Nurse? No March 26, 2025 9:53pm Advance Directives No November 30, 2016 10:29am Advance Directive Response Recorded Date/ Time Living Will No December 27 025 2:11am Do you have a Healthcare Power of Baby Nurse? No December 27, 2024 2:11am Living Will No February 16, 2025 4:01am Do you have a Healthcare Power of Baby Nurse? No February 16, 2025 4:01am Do you have a Healthcare Power of Baby Nurse? No March 26, 2025 9:53pm Do you have a Healthcare Power of Baby Nurse? No April 21, 2025 10:50am Advance Directives No November 30, 2016 10:29am Advance Directive Response Recorded Date/ Time Living Will No February 16, 2025 4:01am Do you have a Healthcare Power of Baby Nurse? No February 16, 2025 4:01am Do you have a Healthcare Power of Baby Nurse? No March 26, 2025 9:53pm Do you have a Healthcare Power of Baby Nurse? No April 21, 2025 10:50am Advance Directives No November 30, 2016 10:29am Advance Directive Response Recorded Date/ Time Living Will No February 16, 2025 4:01am Do you have a Healthcare Power of Baby Nurse? No February 16, 2025 4:01am Do you have a Healthcare Power of Baby Nurse? No March 26, 2025 9:53pm Do you have a Healthcare Power of Baby Nurse? No April 21, 2025 10:50am Do you have a Healthcare Power of Baby Nurse? No May 03, 2025 12:24pm Advance Directives No November 30, 2016 10:29am Advance Directive Response Recorded Date/ Time Living Will No February 16, 2025 4:01am Do you have a Healthcare Power of Baby Nurse? No February 16, 2025 4:01am Do you have a Healthcare Power of Baby Nurse? No March 26, 2025 9:53pm Do you have a Healthcare Power of Baby Nurse? No April 21, 2025 10:50am Do you have a Healthcare Power of Baby Nurse? No May 03, 2025 12:24pm Do you have a Healthcare Power of Baby Nurse? No May 22, 2025 7:01am Advance Directives No November 30, 2016 10:29am Advance Directive Response Recorded Date/ Time Do you have a Healthcare Power of Baby Nurse? No May 29, 2025 10:58pm Living Will No February 16, 2025 4:01am Do you have a Healthcare Power of Baby Nurse? No February 16, 2025 4:01am Do you have a Healthcare Power of Baby Nurse? No March 26, 2025 9:53pm Do you have a Healthcare Power of Baby Nurse? No April 21, 2025 10:50am Do you have a Healthcare Power of Baby Nurse? No May 03, 2025 12:24pm Do you have a Healthcare Power of Baby Nurse? No May 22, 2025 7:01am Advance Directives No November 30, 2016 10:29am Advance Directive Response Recorded Date/ Time Do you have a Healthcare Power of Baby Nurse? No May 29, 2025 10:58pm Do you have a Healthcare Power of Baby Nurse? No June 03, 2025 10:16pm Living Will No February 16, 2025 4:01am Do you have a Healthcare Power of Baby Nurse? No February 16, 2025 4:01am Do you have a Healthcare Power of Baby Nurse? No March 26, 2025 9:53pm Do you have a Healthcare Power of Baby Nurse? No April 21, 2025 10:50am Do you have a Healthcare Power of Baby Nurse? No May 03, 2025 12:24pm Do you have a Healthcare Power of Baby Nurse? No May 22, 2025 7:01am Advance Directives [...] UP - BLEEDING May 23, 2025 11:09am Chief Complaint Admit Date doesn't feel good February 16, 2025 4:0 1am back pain, restless legs March 26, 2025 8:08pm FALL April 21, 2025 10:5 0am OUT OF MEDS May 03, 2025 11:27 am weakness May 22, 2025 7:01 am ER FOLLOW UP - BLEEDING May 23, 2025 11:09am ABDOMINAL PAIN AND DIARRHEA May 29, 2 025 10:04pm Reason for Visit Admit Date Diarrhea May 23, 2025 11:0 9am Chief Complaint Admit Date doesn't feel good February 16, 2025 4:0 1am back pain, restless legs March 26, 2025 8:08pm FALL April 21, 2025 10:5 0am OUT OF MEDS May 03, 2025 11:27 am weakness May 22, 2025 7:01 am ER FOLLOW UP - BLEEDING May 23, 2025 11:09am ABDOMINAL PAIN AND DIARRHEA May 29, 2 025 10:04pm diarrhea June 03, 2025 9:5 8pm Additional Source Comments (unrecognized sect ion and content) No Status Records FoundNo Status Records FoundNo Status Records Found INFORMATION SOURCE (unrecogn ized section and content) DATE CREATED AUTHOR 10/14/2019 [facility] DATE CREATED AUTHOR AUTHOR'S ORGANIZ ATION 12/16/2024 [facility] DATE CREATED AUTHOR AUTHOR'S ORGANIZ ATION 06/08/2025 [facility] Goals (unrecognized section and content) Goals [...] Care Physician Primary Care Provider Active Dr. rA Calle MD Emergency Provider Active Team Status: [...] Castillo DO Emergency Provider Active Dr. Iván aHssan MD Primary Care Provider Active Team Status: [...] End: February 16, 2025 Dr. Johann Lemons , Emergency Provider Active Start: February 16, 2025 [...] May 03, 2025 Dr. Pedro Krishnan DO Attending Provider Active Start: May 03, 2025 End: May 03, 2025 Dr. Pedro Krishnan DO Emergency Provider Active Start: May 03, 2025 End: May 03, 2025 Team Status: Inactive Member Role/Relationship Status Dates Dr. Linden Chavez DO Primary Care Provider Active Start: May 22, 2025 End: May 22, 2025 Dr. Antonette Dominguez DO Emergency Provider Active Start: May 22, 2025 End: May 22, 2025 Team Status: Inactive Member Role/Relationship Status Dates Dr. Linden Chavez DO Primary Care Provider Active Start: May 23, 2025 End: May 23, 2025 Dr. Linden Chavez DO Referring Provider Active Start: May 23, 2025 End: May 23, 2025 HENNA Pearson Attending Provider Active S tart: May 23, 2025 End: May 23, 2025 Team Status: Inactive Member Role/Relationship Status Dates Dr. Linden Chavez DO Primary Care Provider Active Start: May 29, 2025 End: May 30, 2025 Dr. Antonette Dominguez , DO Emergency Provider Active Start: May 29, 2025 End: May 30, 2025 Team Status: Inactive Member Role/Relationship Status Dates Dr. Linden Chavez , DO Primary Care Provider Active Start: May 22, 2025 End: May 22, 2025 Dr. Antonette Dominguez , DO Attending Provider Active Start: May 22, 2025 End: May 22, 2025 Dr. Antonette Dominguez , DO Emergency Provider Active Start: May 22, 2025 End: May 22, 2025 Team Status: Inactive Member Role/Relationship Status Dates Dr. Linden Chavez , DO Primary Care Provider Active Start: June 03, 2025 End: June 03, 2025 Dr. Johann Lemons , DO Emergency Provider Active Start: June 03, 2025 End: June 03, 2025 Source Comments (unrecognize d section and content) In the event this informatio n is protected by the Federal Confidentiality of Alcohol and Drug Abuse Patient Records regulations: The Federal rules restrict any use of the information to criminally investigate or prosecute any alcohol or drug abuse patient.[facility] the event this information is protected by the Federal Confidentiality of Alcohol and Drug Abuse Patient Records regulations: The Federal rules restrict any use of the information to criminally investigate or prosecute any alcohol or drug abuse patient.[facility] the event this information is protected by the Federal Confidentiality of Alcohol and Drug Abuse Patient Records regulations: The Federal rules restrict any use of the information to criminally investigate or prosecute any alcohol or drug abuse patient.[facility] Reason for Visit (unrecogniz ed [...] BE BASED ON THE PRIMARY CLINICAL RECORDS. [facility]. provides no warranty or guarantee of the accuracy or completeness of information in this document.
[2025-06-14 03:17] VITALS: BP 109/67; PULSE 79; RESP 16; TEMP 36.4; O2SAT 96
== END 2025-06-14 03:18 | disposition home or self-care (01) ==
PROVIDERS: Emergency Provider Emergency Medicine; PCP Family Medicine; Visit Provider Emergency Medicine
DX: R19.7 Diarrhea, unspecified (principal); J44.9 Chronic obstructive pulmonary disease, unspecified; E11.9 Type 2 diabetes mellitus without complications; Z79.4 Long term (current) use of insulin; E86.0 Dehydration; E78.5 Hyperlipidemia, unspecified; I10 Essential (primary) hypertension; I25.2 Old myocardial infarction; Z79.84 Long term (current) use of oral hypoglycemic drugs; Z79.82 Long term (current) use of aspirin; Z95.5 Presence of coronary angioplasty implant and graft
CPT/HCPCS: 96360; 99283; A4216

== ENCOUNTER 2025-07-22 19:50 | Emergency (ER) | payer MEDICARE, OTHER, MEDICAID, SELFPAY ==
[2025-07-22 19:50] VITALS: BP 142/87; PULSE 78; RESP 18; TEMP 36.6; O2SAT 98
[2025-07-22 20:32] VITALS: BMI 26.6
--- NOTE | 2025-07-22 20:55 | EX.ED.DYSGE1 ---
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 Esophageal candidiasis Current use of insulin Back pain due to injury Restless legs Injury of head and neck COPD (chronic obstructive pulmonary disease) High cholesterol History of stress test Depression Chronic pain Non-smoker Sleep apnea Diabetes Hyperlipidemia Hypertension Myocardial infarct Home Medications ?Medication ?Instructions ?Recorded ?Last Taken ?Type metformin 500 mg tablet,extended 500 mg PO BID diabetes 05/02/19 03/18/22 History release 24 hr glipizide 5 mg tablet 5 mg PO BID diabetes 03/19/22 03/18/22 History insulin glargine 100 unit/mL (3 10 unit subcut BID diabetes 03/19/22 03/18/22 History mL) subcutaneous pen (Lantus Solostar U-100 Insulin) hydrocortisone 1 % topical cream 1 applic topical TID PRN skin 08/26/23 Unknown Rx irritation #28.4 grams ibuprofen 600 mg tablet 600 mg PO Q8H PRN PRN pain #20 08/26/23 Unknown Rx TABLETS insulin glargine 100 unit/mL 1 unit subcut QPM 09/29/23 Unknown History subcutaneous solution (Lantus U-100 Insulin) levothyroxine 100 mcg tablet 100 mcg PO DAILY 09/29/23 Unknown History cyclobenzaprine 10 mg tablet 10 mg PO TID PRN Muscle Spasm #15 08/10/24 Unknown Rx TABLETS aspirin 81 mg tablet,delayed 81 mg PO DAILY 02/16/25 Unknown History release (Adult Aspirin Regimen) doxycycline hyclate 100 mg capsule 100 mg PO BID 7 days #14 caps 02/16/25 Unknown Rx gabapentin 100 mg capsule 100 mg PO TID #90 caps 04/21/25 Unknown Rx metformin 500 mg tablet 500 mg PO BID 30 days #60 tabs 05/03/25 Unknown Rx sulfamethoxazole 800 1 tab PO BID 7 days #14 tabs 05/03/25 Unknown Rx mg-trimethoprim 160 mg tablet (Bactrim DS) pantoprazole 20 mg tablet,delayed 20 mg PO DAILY #30 tabs 05/22/25 Unknown Rx release (Protonix) [id number] 1 cap PO TID 05/23/25 Unknown History 36,000-114,000-180,000 unit capsule,delay rel (Creon) hydroxyzine HCl 25 mg tablet 25 mg PO TID PRN itching #20 tabs 05/29/25 Unknown Rx nitrofurantoin 100 mg PO Q12H 5 days #10 caps 05/30/25 Unknown Rx monohydrate/macrocrystals 100 mg capsule (Macrobid) diphenoxylate-atropine 2.5 1 tab PO 4X/DAY PRN diarrhea 5 06/03/25 Unknown Rx mg-0.025 mg tablet (Lomotil) days #20 tabs diphenoxylate-atropine 2.5 1 tab PO 4X/DAY PRN diarrhea 5 06/14/25 Unknown Rx mg-0.025 mg tablet (Lomotil) days #20 tabs Allergy/AdvReac Type Severity Reaction Status Date / Time diphenhydramine HCl (From Allergy Rash Verified 07/22/25 19:51 Benadryl) Penicillins Allergy Rash Verified 07/22/25 19:51 venom-honey bee (bee venom Allergy Swelling Verified 07/22/25 19:51 (honey bee)) Surgical History H/O hernia repair Hx of left knee surgery Hx of inguinal herniorrhaphy History of coronary artery stent placement Social History household members: none Smoking Status: Never smoker substance use type: does not use EXAM Physical Exam Const Vital Signs: 07/22/25 19:50 07/22/25 22:00 Temperature 97.8 F Temperature Source Oral Pulse Rate 78 81 Respiratory Rate 18 20 H Blood Pressure 142/87 H 143/83 H Blood Pressure Mean 105 103 Pulse Ox 98 98 Oxygen Delivery Method Room Air Room Air MDM MDM MDM Narrative Medical decision making narrative: HISTORY OF PRESENT ILLNESS: Chief complaint: Diarrhea 65-year-old male history of hypertension, hyperlipidemia, type 2 diabetes, hypothyroidism, CAD, history of alcohol abuse. Patient notes 4 episodes of loose to watery stool. No blood in the stool. No recent travel or antibiotics. No hospitalizations. No vomiting chest pain or shortness of breath. No palpitations. No syncope. No dark stools noted. REVIEW OF SYSTEMS: Pertinent positives: Diarrhea Pertinent negatives: Vomiting, abdominal pain PHYSICAL EXAM: Nursing triage notes reviewed, Vital signs reviewed Constitutional: please see [facility] HENT: MMM Eyes: Pupils equal round and reactive to light, Extraocular muscles intact Neck: No stridor, no JVD, full neck ROM Lungs: Clear to auscultation, No wheezing or rales. No increased work of breathing, no conversational dyspnea, no accessory muscle use, no nasal flaring. No respiratory distress noted Heart: Regular rate and rhythm, No murmurs, No rubs and No gallops, 2+ distal pulses (radial, femoral, posterior tibial) in all extremities Abdomen: Soft, there is no tenderness, rigidity, rebound or guarding, no obvious peritoneal signs, no palpable pulsatile abdominal masses, no auscultated abdominal bruit : No CVAT Extremities: No edema Neuro: No new focal neurological deficits, cranial nerves II through XII intact, 5/5 strength in all present extremities. Intact sensation to light touch in all present extremities, 2+ reflexes bilateral patella tendons. Skin: No rash or lesions noted MEDICAL DECISION MAKING: Chief Complaint: please see HPI External records reviewed: Reviewed prior ED encounters where she was evaluated for diarrhea. Factors affecting care: alcohol abuse Social determinants of health: endorses alcohol use History obtained from others: none Consults: none [facility] Narrative: Patient was initially hemodynamically stable, afebrile and nontoxic-appearing. Abdominal exam completely benign. I considered the following differential diagnosis: Dehydration, acute kidney injury, acute surgical abdominal process I obtained a lab evaluation to further determine if the patient was suffering from a life-threatening etiology. I initially resuscitated patient with IV fluids. (1 L normal saline) ALL IMAGES (IF OBTAINED) HAVE BEEN PERSONALLY REVIEWED AND INTERPRETED BY MYSELF. EKG with normal sinus rhythm, left ax deviation, no STEMI CBC without leukocytosis, severe anemia, no thrombocytopenia. BMP without significant electrolyte abnormalities, there is mild renal insufficiency consistent with dehydration, no evidence hepatobiliary pathology Patient was without nausea or vomiting. He is able to tolerate p.o. He is signs of mild dehydration. Encouraged adequate p.o. intake in the form Body Armor, Pedialyte or Gatorade. No indication for admission at this time. The patient and/or family, caregivers express understanding. The patient and/or family, caregivers agrees with the plan. Shared decision making: I will have a discussion with the patient and or visitors regarding risk/benefits of further testing or admission. They will be made aware of of the risk/benefits inherent in this decision they will be given the opportunity to voice understanding. Total critical care time today provided was at least 0 minutes. This excludes separately billable procedures. Critical care time (if documented) is secondary to the patient having high probability of clinically significant/life threatening deterioration in the patient's condition which required my urgent intervention. Impression: 1. Acute on chronic diarrhea 2. History of alcohol use 3. Dehyrdration Dispo: discharge home This note was generated with [employer] dictation software. It may contain incorrect words, spelling, and punctuation that were not noted in review of the chart prior to signing. Lab Data Labs: Laboratory Results - last 24 hr 07/22/25 20:35 WBC 7.8 RBC 4.78 Hgb 13.9 Hct 39.1 L MCV 81.8 MCH 29.1 MCHC 35.5 RDW Std Deviation 40.1 RDW Coeff of Manjinder 13.5 Plt Count 226 MPV 9.4 Immature Gran % (Auto) 0.400 Neut % (Auto) 67.5 Lymph % (Auto) 20.1 [place] % (Auto) 7.4 Eos % (Auto) 4.1 Baso % (Auto) 0.5 Absolute Neuts (auto) 5.2 Absolute Lymphs (auto) 1.56 Nucleated RBC % 0 Sodium 138 Potassium 4.0 Chloride 102 Carbon Dioxide 25.2 Anion Gap 11 BUN 18 Creatinine 1.46 H Estim Creat Clear Calc 63.57 Est GFR (MDRD) Non-Af 53 L BUN/Creatinine Ratio 12.1 Glucose 178 H Calcium 9.6 Total Bilirubin 0.33 AST 21 ALT 15 Alkaline Phosphatase 83 Total Protein 7.0 Albumin 4.0 Globulin 3.0 Albumin/Globulin Ratio 1.3 Discharge Plan Triage Chief Complaint: Diarrhea ED Provider: Buster Pereyra Dx/Rx/DC Orders Prescriptions: No Action Creon 36,000-114,000- 180,000 unit capsule,delayed release(DR/EC) 1 cap PO TID Rx Instructions: administer with meals and/or snacks metformin 500 MG tablet 500 mg PO BID Patient Comments: diabetes insulin glargine [Lantus Solostar U-100 Insulin] 100 unit/mL (3 mL) Insulin Pen 10 unit SUBCUT BID glipizide 5 mg tablet 5 mg PO BID Rx Instructions: Hold if glucose less than 130 mg/dl ibuprofen 600 mg tablet 600 mg PO Q8H PRN PRN (Reason: pain) Qty: 20 0RF hydrocortisone 1 % cream 1 applic topical TID PRN (Reason: skin irritation) Qty: 28.4 0RF levothyroxine 100 mcg tablet 100 mcg PO DAILY Patient Comments: Take 1 tab by mouth once daily on an empty stomach insulin glargine [Lantus U-100 Insulin] 100 unit/mL solution 1 unit subcut QPM cyclobenzaprine 10 mg tablet 10 mg PO TID PRN (Reason: Muscle Spasm) Qty: 15 0RF hydroxyzine HCl 25 mg tablet 25 mg PO TID PRN (Reason: itching) Qty: 20 0RF nitrofurantoin monohyd/m-cryst [Macrobid] 100 mg capsule 100 mg PO Q12H 5 Days Qty: 10 0RF Rx Instructions: must administer with a meal/food diphenoxylate-atropine [Lomotil] 2.5-0.025 mg tablet 1 tab PO 4X/DAY PRN (Reason: diarrhea) 5 Days Qty: 20 0RF diphenoxylate-atropine [Lomotil] 2.5-0.025 mg tablet 1 tab PO 4X/DAY PRN (Reason: diarrhea) 5 Days Qty: 20 0RF aspirin [Adult Aspirin Regimen] 81 mg tablet,delayed release (DR/EC) 81 mg PO DAILY doxycycline hyclate 100 mg capsule 100 mg PO BID 7 Days Qty: 14 0RF gabapentin 100 mg capsule 100 mg PO TID Qty: 90 0RF sulfamethoxazole-trimethoprim [Bactrim DS] 800-160 mg tablet 1 tab PO BID 7 Days Qty: 14 0RF metformin 500 mg tablet 500 mg PO BID 30 Days Qty: 60 0RF pantoprazole [Protonix] 20 mg tablet,delayed release (DR/EC) 20 mg PO DAILY Qty: 30 0RF Primary Care Provider: Linden Chavez Referrals: Linden Chavez DO [Primary Care Provider, Family Practice] Print Language: Togolese
--- NOTE | 2025-07-22 21:28 | EKG12_ITS ---
Test Reason : DYSRHYTHMIA Blood Pressure : */* mmHG Vent. Rate : 75 BPM Atrial Rate : 75 BPM P-R Int : 192 ms QRS Dur : 88 ms QT Int : 390 ms P-R-T Axes : 45 -50 35 degrees QTcB Int : 435 ms Normal sinus rhythm Left anterior fascicular block Abnormal ECG Confirmed by TESSA TRACY, MENDY ([id number]), book editor JADEN HERNANDEZ ([id number]) on 07/23/2025 7:33:02 AM Referred By: Confirmed By: MENDY ZARATE MD
--- OUTSIDE RECORDS SUMMARY | 2025-07-22 21:28 | XMS RPT_ITS | CCD ---
Author Organization [facility] Care Team Providers Care Button And Buckle Maker Name Role Phone Unavailable Primary Care Provider [...] Unavailable Barry Mathew MD Attending Provider Barry Mtahew MD Emergency Provider Dr. Avni Cash MD [...] Provider Dr. Pedro Krishnan DO [facility] Emergency Provider Scott SUMMERS, Dr. Cheatham Referring Provider Brien POLITICAL ANTHROPOLOGIST-CRosio Attending Provider nAgelica SUMMERS, Dr. Whitman Attending Provider Care Physician, No Primary Primary Care Provider Unavailable Cristo SUMMERS, Dr. Wills Attending Provider Cristo SUMMERS, Dr. Wills Emergency Provider Roddy SUMMERS, Dr. Goins Attending Provider Roddy DO, Dr. Goins Emergency Provider Luc TRACY, Dr. Joyner Attending Provider Luc TRACY, Dr. Joyner Emergency Provider Scott SUMMERS, Dr. Cheatham Primary Care Provider Scott SUMMERS, Dr. Cheatham Attending Provider Ariella SUMMERS, Dr. Vasquez Attending Provider Ariella SUMMERS, Dr. Vasquez Emergency Provider Angelica SUMMERS, Dr. Whitman Attending Provider Angelica SUMMERS, Dr. Whitman Emergency Provider Scott SUMMERS, Dr. Cheatham Referring Provider Brien POLITICAL ANTHROPOLOGIST-CRosio Attending Provider [phone] Care Physician, No Primary Primary Care Unava ilable Buster Pereyra Attending Unavailable Johann Lemons Attending Unavailable Scott, Linden Primary Care Unavailable Johann Lemons Attending Unavailable Scott, Linden Primary Care Unavailable Care Physician, No Primary Primary Care Unava ilable Barry Mathew Attending Unavailable Pedro Krishnan Attending Unavailable Scott, Linden Primary Care Unavailable Donaldo Obregon Attending Unavailable Scott, Linden Primary Care Unavailable Adam Allen Attending Unavailable Scott, Linden Primary Care Unavailable Live Ashley Attending Unavailable Scott, Linden Primary Care Unavailable Scott, Linden Attending Unavailable Scott, Linden Primary Care Unavailable Scott, Linden Attending Unavailable Scott, Linden Primary Care Unavailable Care Physician, No Primary Primary Care Unava ilable Calle Ar Attending Unavailable Johann Lemons Attending Unavailable Linden Chavez Primary Care Unavailable Antonette Dominguez Attending Unavailable Linden Chavez Primary Care Unavailable Antonette Dominguez Attending Unavailable Linden Chavez Primary Care Unavailable Rosio Tesfaye Attending Unavailable Linden Chavez Referring Unavailable Linden Chavez Primary Care Unavailable Care Physician, No Primary Primary Care Unava ilable Pedro Krishnan Attending Unavailable Care Physician, No Primary Primary Care Unava ilable Avni Cash Attending Unavailable Panchito Castillo Attending Unavailable Care Physician, No Primary Primary Care Unava ilable Johann Lemons Attending Unavailable Care Physician, No Primary Primary Care Unava ilable Allergies Allergy Classification Reported Allergen(s) Allergy Type Date of Onset Reaction(s) Facility (20 sources) bee venom Propensity to adverse reactions to drug 9 [place], [place] (2 sources) diphenhydrAMINE; Translations: [DIPHENHYDRAMINE] Drug Allergy 1 [place], [place] (8 sources) Penicillins; Translations: [PENICILLINS] Propensity to adverse reactions to drug 1 [place], [place] (20 sources) diphenhydrAMINE; Translations: [diphenhydramine HCl] Drug Allergy 2 [facility] (20 sources) Penicillins Allergy to substance 2 [facility] (3 sources) diphenhydrAMINE Drug Allergy 1 [facility] Work Phone: (3 sources) Penicillins Drug Allergy [address] [facility] Work Phone: (4 sources) Bee Sting; Translations: [BEE STING] Allergy to substance 1 [facility] Work Phone: (1 source) Penicillins Drug allergy (disorder) 5 [facility] Repository (1 source) venom-honey bee Drug allergy (disorder) 5 [facility] Repository Medications Current Medications Medication Drug Class(es) Dates Sig (Normalized) Sig (Original) [id number] 200 actuat albuterol 0.09 mg/actuat metered dose [...] structed every 4 hours as needed. amylase [id number] unt / lipase [id number] unt / protease [id number] unt delayed release oral capsule (4 sources) Start: 05-23-2025 Start: 05-23-2025 take [id number] ca psules by mouth three times daily at mealtime Utcivo-Leyrbuni-Kilajix (Creon) 36,000-114,000- 180,000 unit capsule,delayed release(DR/EC) Active 1 NMA PO THREE TIMES A DAY May 23, 2025 12:00am administer with meals and/or snacks aspirin 81 mg delayed release oral tablet (20 sources) Platelet Aggregation Inhibitor, Nonsteroidal Anti-inflammatory Drug Start: 02-16-2025 Start: 06-13-2020 take 1 tablet by tom th once daily aspirin, enteric coated (ASPIRIN, ENTERIC COATED) 81 mg EC tablet Take 1 tablet by mouth once daily. 30 tablet 11 06/13/2020 Active Start: 11-26-2013 End: 11-26-2013 take 1 tablet by tom th once [...] Anticholinergic, Cholinergic Muscarinic Antagonist, Antidiarrheal Start: 06-03-2025 Start: 06-03-2025 Diphenoxylate- Atropine (Lomotil) 2.5-0.025 mg tablet Active 1 {tbl} PO 4 TIMES DAILY as needed for diarrhea 20 5 0 June 03, 2025 10:25pm Diarrhea Diarrhea, unspecified Start: 10-30-2022 End: 02-16-2025 Start: 10-30-2022 End: 02-16-2025 Diphenoxylate-Atropine (Lomo til) 2.5-0.025 mg tablet Discontinued 1 {tbl} PO 4 TIMES DAILY NEEDED as needed for diarrhea 20 5 0 October 30, 2022 4:58am February 16, 2025 4:05am Diarrhea Diarrhea, unspecified bisacodyl 10 mg rectal suppository (1 source) [...] sources) Muscle Relaxant Start: 08-26-2023 End: 08-10-2024 Start: 10-06-2019 End: 10-06-2019 cyclobenzaprine (FLEXERIL) t ablet 10 mg Start: 06-22-2016 End: 11-14-2016 doxycycline hyclate 100 mg o ral capsule (20 sources) Tetracycline-class Drug Start: 02-16-2025 Start: 10-27-2018 End: 11-06-2018 empagliflozin 10 mg oral tablet (3 sources) [...] Comment on above: Take 1 tablet by [facility] once daily. Take 1 tablet once daily [...] 14 DAY SENSOR) kit (3 sources) Start: 9 flash glucose sensor (FREESTYLE CLAUDIA 14 DAY SENSOR) kit 1 Device four times daily. 2 Kit 3 03/08/2019 Active Comment on above: 1 Device four times daily. fluticasone propionate 0.05 mg/actuat metered dose nasal spray (1 source) Corticosteroid Start: 5 take 1 spray(s) nasal route once daily fluticasone (FLONASE ALLERGY RELIEF) 50 mcg/actuation nasal spray Indications: Eustachian tube dysfunction, bilateral Use 1 [place] in each nostril once daily. 9.9 mL 12/14/2024 Active gabapentin 100 mg oral capsule (12 sources) Anti-epileptic Agent Start: 5 Start: 11-12-2019 take 1 capsule by [facility] once daily at bedtime gabapentin (NEURONTIN) 300 mg capsule Indications: Lumbar radiculopathy Take 1 capsule by mouth daily at bedtime for 30 days. 30 capsule 11/12/2019 Active Comment on above: Take 1 capsule by [facility] daily at bedtime for 30 days. glucagon (rdna) 1 mg injection (1 source) Antihypoglycemic Agent Start: 10-05-2019 glucagon (rDNA) injection 1 mg 150 ml glucose 50 mg/ml injection (3 sources) Start: 10-05-2019 glucose (GLUTOSE) 40 % oral gel 15 g Start: 10-05-2019 dextrose 50 % IV solution Start: 10-05-2019 dextrose 5 % s olution hydrocortisone 10 mg/ml topi tabitha cream (20 sources) Corticosteroid Start: 08-26-2023 hydrOXYzine hydrochloride 25 mg oral tablet (3 sources) Antihistamine Start: 05-29-2025 ibuprofen 600 mg oral tablet (20 sources) Nonsteroidal Anti-inflammatory Drug Start: 05-12-2023 End: 09-29-2023 3 ml insulin glargine 100 un t/ml pen injector (20 sources) Insulin Analog Start: 03-19-2022 Start: 03-19-2022 Insulin Glargi ne (Lantus Solostar U-100 Insulin) 100 unit/mL (3 mL) Insulin Pen Active 10 U SC TWICE A DAY March 19, 2022 12:00am diabetes Start: 04-30-2019 inject 82 [IU] by fuentes bcutaneous injection once daily before breakfast insulin [...] March 06, 2017 12:56am Start: 08-16-2013 End: 05-12-2019 Start: 08-16-2013 End: 05-12-2019 Start: 08-16-2013 End: [...] vial 0-12 Units Start: 05-12-2019 End: 01-03-2020 Start: 05-12-2019 End: 01-03-2020 insulin lispro (ADMELOG [...] 0.7 ml/ml medicated pad (3 sources) Start: 09-05-2015 Alcohol Swabs (ALCOHOL PADS) padm Indications: Diabetes mellitus, type II, insulin dependent (HCC) , Diabetes mellitus, type II, insulin dependent (HCC) Use to cleanse skin prior to giving insulin 150 Each 11 09/05/2015 Active Comment on above: Use to cleanse skin prior to giving insulin levothyroxine sodium 0.1 mg oral tablet (20 sources) l-Thyroxine Start: 09-29-2023 Start: 12-06-2020 take 1 tablet by tom once daily for thyroid dysfunction levothyroxine (SYNTHROID) [...] oral tablet (20 sources) Biguanide Start: 05-03-2025 Start: 12-11-2022 End: 09-29-2023 Start: 12-11-2022 End: 09-29-2023 take 1 tablet [...] tablet 01/30/2021 Active Start: 12-01-2016 End: 05-02-2019 Start: 11-30-2016 End: 05-02-2019 Start: 11-30-2016 End: 05-02-2019 take 1 tablet by mouth twice daily Metformin 500 MG tablet Active 500 mg PO TWICE A DAY May 02, 2019 1:35pm diabetes Start: 11-30-2016 End: 12-01-2016 take 1 tablet by mouth once daily Metformin 500 MG Tab.Er.24h Discontinued 2000 mg PO DAILY November 30, 2016 1:00am December 01, 2016 12:25pm Diabetes take 4 tablets by mo uth once daily at breakfast metFORMIN (GLUCOPHAGE-XR) 500 MG extended release tablet Take 2,000 mg by mouth daily (with breakfast) 0 Active Comment on above: Take 4 tablets by mo uth once daily for 14 days. naproxen 500 mg oral tablet (3 sources) Nonsteroidal Anti-inflammatory Drug Start: 09-12-20 19 take 1 tablet by mouth twice daily at mealtime naproxen (NAPROSYN) 500 mg tablet Indications: Trapezius strain, left, initial encounter Take 1 tablet by mouth twice daily with meals. 20 tablet 09/12/2019 Active Comment on above: Take 1 tablet by tom twice daily with meals. nitrofurantoin, macrocrystals 25 mg / nitrofurantoin, monohydrate 75 mg oral capsule (3 sources) Nitrofuran Antibacterial Start: 05-30-20 25 omeprazole 20 mg delayed release oral capsule (4 sources) Proton Pump Inhibitor Start: 01-31-20 21 take 1 capsule by mouth once daily [...] on above: Take 1 capsule by mo [facility] daily before breakfast for 14 days. 1/2 hr before meal. Oral Medication Containers misc (3 sources) Start: 04-26-2014 Oral Medication Containers misc Indications: Diabetes mellitus, type II, insulin dependent (HCC) , Hypertension , Coronary artery disease , Hypothyroidism Use as directed 1 Each 0 04/26/2014 Active Comment on above: Use as directed pantoprazole 20 mg delayed release oral tablet (5 sources) Proton Pump Inhibitor Start: 05-22-2025 3 ml sodium chloride 9 mg/ml injection (5 sources) Start: 10-05-2019 sodium chloride flush 0.9 % injection 10 mL Start: 10-05-2019 End: 10-06-2019 0.9 % sodium chloride infusi on sulfamethoxazole 800 mg / trimethoprim 160 mg oral tablet (6 sources) Dihydrofolate Reductase Inhibitor Antibacterial, Sulfonamide Antimicrobial Start: 05-03-2025 Start: 05-03-2025 Sulfamethoxazo le-Trimethoprim (Bactrim Ds) 800-160 mg tablet Active 1 {tbl} PO TWICE A DAY 14 7 0 May 03, 2025 12:00am (4 sources) Start: 09-29-2023 Start: 12-11-2022 End: 09-29-2023 Completed/Discontinued Medications Medication Drug Class(es) Dates Sig (Normalized) Sig (Original) acetaminophen 325 mg / HYDROcodone bitartrate 5 mg oral tablet (20 sources) Opioid Agonist Start: 06-22-2016 End: 11-14-2016 Start: 06-22-2016 End: 11-14-2016 Hydrocodone-Acetaminophen 1 TABLET tablet Discontinued 1 - 2 {tbl} PO EVERY 4 HOURS NEEDED as needed for Pain 12 0 June 22, 2016 12:00am November 14, 2016 10:55am Start: 06-22-2016 End: 11-14-2016 take 1 tablet by mouth every four hours as needed Hydrocodone-Acetaminophen Discontinued 1 - 2 TABLET PO EVERY 4 HOURS NEEDED June 22, 2016 12:00am November 14, 2016 10:55am acetaminophen 325 mg / oxyCO DONE hydrochloride 5 mg oral tablet (11 sources) Opioid Agonist Start: 08-10-2024 End: 10-19-2024 Start: 08-10-2024 End: 10-19-2024 Oxycodone-Acetaminophen 5-32 5 mg tablet Discontinued 1 {tbl} PO EVERY 6 HOURS NEEDED as needed for Pain 12 3 0 August 10, 2024 October 19, 2024 5:01am Lumbar radiculopathy Radiculopathy, lumbar region alogliptin 25 mg oral tablet (20 sources) Start: 09-02-2017 End: 05-03-2019 canagliflozin 100 mg oral tablet (20 sources) Sodium-Glucose Cotransporter 2 Inhibitor Start: 12-12-2014 End: 05-03-2019 cefdinir 300 mg oral capsule (11 sources) Cephalosporin Antibacterial Start: 12-27-2024 End: 02-16-2025 ciprofloxacin 500 mg oral tablet (20 sources) Quinolone Antimicrobial Start: 09-29-2023 End: 05-18-2024 dicyclomine hydrochloride 20 mg oral tablet (20 sources) Anticholinergic Start: 08-07-2022 End: 02-16-2025 fluconazole 200 mg oral tabl et (20 sources) Azole Antifungal Start: 01-07-2022 End: 08-10-2024 glipiZIDE 5 mg oral tablet (20 sources) Sulfonylurea Start: 12-11-2022 End: 09-29-2023 Start: 01-07-2022 End: 03-19-2022 Start: 01-07-2022 End: 09-29-2023 take 1 tablet by mouth once daily Glipizide 5 mg tablet Discontinued 5 mg PO DAILY 60 0 December 11, 2022 1:00am September 29, 2023 9:48pm 12 hr guaiFENesin 600 mg ext ended release oral tablet (20 sources) Start: 12-01-2016 End: 03-07-2017 magnesium citrate 58.2 mg/ml oral solution (19 sources) Start: 12-08-2023 End: 02-16-2025 Start: 12-08-2023 End: 02-16-2025 Magnesium Citrate (Citrate O f Magnesia) solution Discontinued 300 mL PO DAILY as needed for constipation 296 0 December 08, 2023 1:00am February 16, 2025 4:06am Drink one half bottle if no bowel movement within 4 hours drink the second half of the bottle Start: 12-08-2023 Magnesium Citr ate (Citrate Of [...] premix meclizine hydrochloride 25 mg oral tablet (19 sources) Antiemetic Start: 12-08-2023 End: 02-16-2025 Methylprednisolone (20 sources) Corticosteroid Start: 08-16-2013 End: 11-11-2013 Methylprednisolone 4 MG Box Discontinued 4 mg PO DIRECTED August 16, 2013 12:00am November 11, 2013 4:50pm Start: 08-16-2013 End: 11-11-2013 metroNIDAZOLE 500 mg oral tablet (20 sources) Nitroimidazole Antimicrobial Start: 09-29-2023 End: 05-18-2024 1 ml morphine sulfate 4 mg/ml cartridge (1 source) Opioid Agonist Start: 10-06-2019 End: 10-06-2019 morphine (PF) injection 2 mg Start: 10-06-2019 End: 10-06-2019 morphine (PF) injection 2 mg ondansetron 4 mg disintegrat ing oral tablet (20 sources) Serotonin-3 Receptor Antagonist Start: 04-26-2022 End: 02-16-2025 Start: 04-26-2022 End: 04-19-2025 take 1 tablet by mouth every eight hours as needed for nausea Ondansetron 4 mg tablet,disintegrating Discontinued 4 mg PO EVERY 8 HOURS NEEDED as needed for Nausea 10 0 December 25, 2023 1:00am March 08, 2024 6:50am Start: 10-05-2019 ondansetron (Z OFRAN) injection 4 mg permethrin 50 mg/ml topical cream (20 sources) Pyrethroid Start: 05-26-2022 End: 09-29-2023 phenazopyridine hydrochloride 200 mg oral tablet (11 sources) Start: 12-27-2024 End: 02-16-2025 polyethylene glycol 3350 56168 mg powder for oral solution (20 sources) Osmotic Laxative Start: 03-08-2024 End: 02-16-2025 microencapsulated potassium chloride 10 meq extended release oral tablet (2 sources) Start: 10-06-2019 End: 10-06-2019 potassium chloride (KLOR-CON M) extended release tablet 30 mEq Start: 10-06-2019 End: 10-06-2019 potassium chloride 10 mEq/10 0 mL IVPB (Peripheral Line) predniSONE 10 mg oral tablet (20 sources) Start: 05-26-2022 End: 09-29-2023 Start: 02-24-2018 End: 05-12-2019 traMADol hydrochloride 50 mg oral tablet (20 sources) Opioid Agonist Start: 07-03-2022 End: 09-29-2023 Problems Active Problems Problem Classification Problem Date [...] Translations: [Chronic obstructive pulmonary disease, unspecified] Onset: Resolved: 0 11-17-2019 Chronic Chronic obstructive pulmonary [...] [Constipation, unspecified] 03-08-2024 Episodic Other gastrointestinal disorders (5 sources) Occult blood in stools; Translations: [Other fecal abnormalities] 05-22-2025 Episodic Other infections; including parasitic (20 sources) Infestation by Sarcoptes scabiei manjinder hominis; Translations: [Scabies] 06-03-2022 Episodic Other inflammatory condition of skin (3 sources) Pruritic rash; Translations: [Other prurigo] 05-29-2025 Episodic Other injuries and conditions due to external causes (20 sources) Heat cramp; Translations: [Heat cramp, initial encounter] 05-20-2019 Episodic Other injuries and conditions due to external causes (20 sources) Heat exposure; Translations: [Effect of heat and light, unspecified, initial encounter] 05-04-2022 Episodic Other injuries and conditions due to external causes (6 sources) Other specified injuries of thorax, initial encounter; Translations: [Contusion of rib on right side] 05-16-2021 Episodic Other lower respiratory disease (11 sources) History of chronic obstructive airway disease; Translations: [Personal history of other diseases of the respiratory system] 12-28-2024 Episodic Other nutritional; endocrine; and metabolic disorders (5 sources) Hypomagnesemia; Translations: [Hypomagnesemia] 05-22-2025 Chronic Other [...] Translations: [Altered mental status, unspecified] 08-06-2023 Episodic Sprains and strains (20 sources) Strain [...] Translations: [Cough, unspecified] Onset: Urinary tract infections (14 sources) Acute urinary tract infection; Translations: [Urinary tract infection, site not specified] 01-04-2025 Episodic Viral infection (20 sources) Viral disease; Translations: [Viral infection, unspecified] 09-15-2020 Episodic Past or Other Problems Problem Classification Problem Date Documented Da te Episodic/Chronic Administrative/social admission (3 sources) Patient encounter status; Translations: [Encounter for disability determination] Onset: 11-30-2012 11-30-2012 Episodic Diseases of mouth; excluding dental (12 sources) Xerostomia; Translations: [Dry mouth, unspecified] Onset: [...] Translations: [Acute left-sided low back pain] Onset: 06-22-2011 07-11-2022 Episodic Unclassified (8 sources) Abrasion, left knee, initial encounter 04-21-2025 Results Test Name Value Interpretation Reference Range Facility Emergency Department Summary on 06-14-2025 Emergency Department Summary Normal [facility] Emergency Department Summary on 06-03-2025 Emergency Department Summary Normal [facility] Urine Cultureon 06-01-2025 URC Normal [facility] Comment on above: Performed By: #### M [id number] ####[facility] [address] [place], [address] Urinalysis, Completeon 05-30 BACTERIA 3+ /hpf Normal None Seen [facility] Comment on above: Order Comment: NO CTOR TO SPECIFY Performed By: #### L 400.0001 ####[facility] [address] [place], [place], [id number] RBC 0-5 SEEN Normal 0-5 [facility] Comment on above: Order Comment: NO CTOR TO SPECIFY Performed By: #### L [id number] ####[facility] [address] [place], [place], [id number] WBC 25-50 SEEN Normal 0-5 [facility] Comment on above: Order Comment: NO CTOR TO SPECIFY Performed By: #### L [id number] ####[facility] [address] [place], [place], [id number] 12 Lead EKGon 05-29-2025 12 Lead EKG Normal [facility] Absolute lymphocyte countOrd ered By: Antonette Dominguez on 05-29-2025 Lymphocytes Auto (Unsp spec) [#/Vol] 1.92 10*3/uL 0.83-4.51 [facility] Absolute neutrophil countOrd ered By: Antonette Dominguez on 05-29-2025 Neutrophils (Bld) [#/Vol] 5.0 10*3/uL 2.0-7.7 [facility] Anion gap in Serum or Plasma Ordered By: Antonette Dominguez on 05-29-2025 Anion gap [Moles/Vol] 11 mmol/L 5-15 [facility] Automated lymphocyte count a s percentage of total leukocytesOrdered By: Antonette Dominguez on 05-29-2025 Lymphocytes/100 WBC Auto (Unsp spec) 23.1 % 19-41 [facility] BUN/creatinine ratioOrdered By: Antonette Dominguez on 05-29-2025 Urea nitrogen/Creatinine [Mass ratio] 21.4 mg/mg High 10-20 [facility] Basophil percentageOrdered B y: Antonette Dominguez on 05-29-2025 Basophils/100 WBC (Bld) 0.8 % 0-1 [facility] Bilirubin Test strip Ql (U)O rdered By: Antonette Dominguez on 05-29-2025 Bilirubin Ql (U) Negative Negative [facility] Bilirubin, totalOrdered By: Antonette Dominguez on 05-29-2025 Bilirubin [Mass/Vol] 0.31 mg/dL 0.00-1.30 [facility] CBC W/Diff, Automatedon 05-02 Absolute Lymph 1.92 X10 3/uL Normal 0.83-4.51 [facility] Comment on above: Performed By: #### L [id number], [id number], L100.0100 ####[facility] [address] [place], [address] Absolute Neut 5.0 X10 3/uL Normal 2.0-7.7 [facility] Comment on above: Performed By: #### L [id number], [id number], L100.0100 ####[facility] [address] [place], [address] Basophils/100 WBC (Bld) 0.8 % Normal 0-1 [facility] Comment on above: Performed By: #### L [id number], [id number], L100.0100 ####[facility] [address] [place], [address] Eosinophils/100 WBC (Bld) 5.9 % High 0-5 [facility] Comment on above: Performed By: #### L [id number], [id number], L100.0100 ####[facility] [address] [place], [address] Erythrocyte distribution width (RBC) [Ratio] 13.7 % Normal 11.6-14.6 [facility] Comment on above: Performed By: #### L [id number], [id number], L100.0100 ####[facility] [address] [place], [address] Hematocrit (Bld) [Volume fraction] 36.6 % Low 40-54 [facility] Comment on above: Performed By: #### L [id number], [id number], L100.0100 ####[facility] [address] [place], [address] Hemoglobin (Bld) [Mass/Vol] 12.5 g/dL Low 13.0-16.5 [facility] Comment on above: Performed By: #### L [id number], [id number], L100.0100 ####[facility] [address] [place], [address] IG% 0.400 Normal 0.0-0.9 [facility] Comment on above: Result Comment: IG% - Immature Granulocytes (promyelocytes, myelocytes andmetamyelocytes) > 1% indicates that a LEFT SHIFT is Present. Performed By: #### L [id number], [id number], L100.0100 ####[facility] [address] [place], [address] Lymphocytes/100 WBC (Bld) 23.1 % Normal 19-41 [facility] Comment on above: Performed By: #### L [id number], [id number], L100.0100 ####[facility] [address] [place], [address] MCH (RBC) [Entitic mass] 28.7 pg Normal 27.0-32.0 [facility] Comment on above: Performed By: #### L [id number], [id number], L100.0100 ####[facility] [address] [place], [address] MCHC (RBC) [Mass/Vol] 34.2 g/dL Normal 32-36 [facility] Comment on above: Performed By: #### L [id number], [id number], [id number] ####[facility] [address] [place], [address] MCV (RBC) [Entitic vol] 84.1 fL Normal 80-94 [facility] Comment on above: Performed By: #### L [id number], [id number], [id number] ####[facility] [address] [place], [address] Monocytes/100 WBC (Bld) 9.6 % Normal 0-10 [facility] Comment on above: Performed By: #### L [id number], [id number], [id number] ####[facility] [facility] [address] [place], [address] Neutrophils/100 WBC (Bld) 60.2 % Normal 47-70 [facility] Comment on above: Performed By: #### L 501.2450, L500.4050, L100.0100 ####[facility] [address] [place], [address] Nucleated RBC (Bld) [#/Vol] 0 10*3/uL Normal 0-5 [facility] Comment on above: Performed By: #### L 501.2450, L500.4050, L100.0100 ####[facility] [address] [place], [address] Platelet mean volume (Bld) [Entitic vol] 9.0 fL Normal 6.2-12.0 [facility] Comment on above: Performed By: #### L 501.2450, L500.4050, L100.0100 ####[facility] [address] [place], [address] Platelets (Bld) [#/Vol] 204 10*3/uL Normal 150-450 [facility] Comment on above: Performed By: #### L 501.2450, L500.4050, L100.0100 ####[facility] [address] [place], [address] RBC (Bld) [#/Vol] 4.35 10*6/uL Low 4.6-6.2 [facility] Comment on above: Performed By: #### L 501.2450, L500.4050, L100.0100 ####[facility] [address] [place], [address] RDW SD 42.3 fl Normal 35.1-43.9 [facility] Comment on above: Performed By: #### L 501.2450, L500.4050, L100.0100 ####[facility] [address] [place], [address] WBC (Bld) [#/Vol] 8.3 10*3/uL Normal 4.4-11.0 [facility] Comment on above: Performed By: #### L 501.2450, L500.4050, L100.0100 ####[facility] [address] [place], [address] Absolute Neut Normal 2.0-7.7 [facility] Comment on above: Result Comment: PER GILSONRN DUPLICATE ORDERS Performed By: #### L 100.0100, L500.4050 ####[facility] [address] [place], [address] HCT Normal 40-54 [facility] Comment on above: Result Comment: PER GILSONRN DUPLICATE ORDERS Performed By: #### L 100.0100, L500.4050 ####[facility] [address] [place], [address] HGB Normal 13.0-16.5 [facility] Comment on above: Result Comment: PER GILSONRN DUPLICATE ORDERS Performed By: #### L 100.0100, L500.4050 ####[facility] [address] [place], [address] MCH Normal 27.0-32.0 [facility] Comment on above: Result Comment: PER ETEAL,RN DUPLICATE ORDERS Performed By: #### L 100.0100, L500.4050 ####[facility] [address] [place], [address] MCHC Normal 32-36 [facility] Comment on above: Result Comment: PER ETEAL,RN DUPLICATE ORDERS Performed By: #### L 100.0100, L500.4050 ####[facility] [address] [place], [address] MCV Normal 80-94 [facility] Comment on above: Result Comment: PER ETEAL,RN DUPLICATE ORDERS Performed By: #### L 100.0100, L500.4050 ####[facility] [address] [place], [address] NEUT% Normal 47-70 [facility] Comment on above: Result Comment: PER ETEAL,RN DUPLICATE ORDERS Performed By: #### L 100.0100, L500.4050 ####[facility] [address] [place], [address] PLT Normal 150-450 [facility] Comment on above: Result Comment: PER ETEAL,RN DUPLICATE ORDERS Performed By: #### L 100.0100, L500.4050 ####[facility] [address] [place], [address] RBC Normal 4.6-6.2 [facility] Comment on above: Result Comment: PER ETEAL,RN DUPLICATE ORDERS Performed By: #### L 100.0100, L500.4050 ####[facility] [address] [place], [address] RDW CV Normal 11.6-14.6 [facility] Comment on above: Result Comment: PER ETEAL,RN DUPLICATE ORDERS Performed By: #### L 100.0100, L500.4050 ####[facility] [address] [place], [address] RDW SD Normal 35.1-43.9 [facility] Comment on above: Result Comment: SUNITHA RIGGINS RN DUPLICATE ORDERS Performed By: #### L 100.0100, L500.4050 ####[facility] [address] [place], [address] WBC Normal 4.4-11.0 [facility] Comment on above: Result Comment: PER GILSONRN DUPLICATE ORDERS Performed By: #### L 100.0100, L500.4050 ####[facility] [address] [place], [address] Carbon dioxide, total [Moles /volume] in Central venous bloodOrdered By: Antonette Dominguez on 05-29-2025 CO2 [Moles/Vol] 23.3 mmol/L 21.0-32.0 [facility] Chloride assayOrdered By: Gibran Dominguez on 05-29-2025 Chloride [Moles/Vol] 107 mmol/L 98-108 [facility] Comprehensive Metabolic Prof ilon 05-29-2025 Albumin [Mass/Vol] 3.8 g/dL Normal 3.4-4.8 [facility] Comment on above: Performed By: #### L 501.2450, L500.4050, L100.0100 ####[facility] [address] [place], [address] Albumin/Globulin [Mass ratio] 1.4 {ratio} Normal 0.9-2.4 [facility] Comment on above: Performed By: #### L 501.2450, L500.4050, L100.0100 ####[facility] [address] [place], [address] ALK PHOS 83 U/L Normal 40-129 [facility] Comment on above: Performed By: #### L 501.2450, L500.4050, L100.0100 ####[facility] [address] [place], [address] ALT [Catalytic activity/Vol] 12 U/L Normal <=46 [facility] Comment on above: Performed By: #### L 501.2450, L500.4050, L100.0100 ####[facility] [address] [place], [address] AST [Catalytic activity/Vol] 16 U/L Normal <=37 [facility] Comment on above: Performed By: #### L 501.2450, L500.4050, L100.0100 ####[facility] [address] [place], [address] Bilirubin [Mass/Vol] 0.31 mg/dL Normal 0.00-1.30 [facility] Comment on above: Performed By: #### L 501.2450, L500.4050, L100.0100 ####[facility] [address] [place], [address] BUN/CRE 21.4 RATIO High 10-20 [facility] Comment on above: Performed By: #### L 501.2450, L500.4050, L100.0100 ####[facility] [address] [place], [address] Calcium [Mass/Vol] 8.9 mg/dL Normal 7.6-11.0 [facility] Comment on above: Performed By: #### L 501.2450, L500.4050, L100.0100 ####[facility] [address] [place], [address] Chloride [Moles/Vol] 107 mmol/L Normal 98-108 [facility] Comment on above: Performed By: #### L 501.2450, L500.4050, L100.0100 ####[facility] [address] [place], [address] CO2 [Moles/Vol] 23.3 mmol/L Normal 21.0-32.0 [facility] Comment on above: Performed By: #### L 501.2450, L500.4050, L100.0100 ####[facility] [address] [place], [address] Creatinine [Mass/Vol] 0.87 mg/dL Normal 0.70-1.20 [facility] Comment on above: Performed By: #### L 501.2450, L500.4050, L100.0100 ####[facility] [address] [place], [address] ECRCL 116.80 ml/min Normal 50-250 [facility] Comment on above: Performed By: #### L 501.2450, L500.4050, L100.0100 ####[facility] [address] [place], [address] GAP 11 Normal 5-15 [facility] Comment on above: Performed By: #### L 501.2450, L500.4050, L100.0100 ####[facility] [address] [place], [address] GFR/1.73 sq M.predicted among non-blacks MDRD (S/P/Bld) [Vol rate/Area] 96 mL/min/{1.73_m2} Normal >60 [facility] Comment on above: Result Comment: mL/m in/1.73m2 CKD-EPI Creatinine Equation (2020) Performed By: #### L 501.2450, L500.4050, L100.0100 ####[facility] [address] [place], [address] Globulin (S) [Mass/Vol] 2.8 g/dL Normal 2.2-4.2 [facility] Comment on above: Performed By: #### L 501.2450, L500.4050, L100.0100 ####[facility] [address] [place], [address] Glucose [Mass/Vol] 117 mg/dL High 70-99 [facility] Comment on above: Performed By: #### L 501.2450, L500.4050, L100.0100 ####[facility] [address] [place], [address] Potassium [Moles/Vol] 4.2 mmol/L Normal 3.3-5.1 [facility] Comment on above: Performed By: #### L 501.2450, L500.4050, L100.0100 ####[facility] [address] [place], [address] Sodium [Moles/Vol] 141 mmol/L Normal 133-145 [facility] Comment on above: Performed By: #### L 501.2450, L500.4050, L100.0100 ####[facility] [address] [place], [address] T PROT 6.6 g/dL Normal 5.9-8.4 [facility] Comment on above: Performed By: #### L 501.2450, L500.4050, L100.0100 ####[facility] [address] [place], [address] Urea nitrogen [Mass/Vol] 19 mg/dL Normal 4-19 [facility] Comment on above: Performed By: #### L 501.2450, L500.4050, L100.0100 ####[facility] [address] [place], [address] ALB Normal 3.4-4.8 [facility] Comment on above: Result Comment: SUNITHA RIGGINS RN DUPLICATE ORDERS Performed By: #### L 100.0100, L500.4050 ####[facility] [address] [place], [address] ALK PHOS Normal 40-129 [facility] Comment on above: Result Comment: PER ETEAL,RN DUPLICATE ORDERS Performed By: #### L 100.0100, L500.4050 ####[facility] [address] [place], [address] ALT Normal <=46 [facility] Comment on above: Result Comment: PER ETEAL,RN DUPLICATE ORDERS Performed By: #### L 100.0100, L500.4050 ####[facility] [address] [place], [address] AST Normal <=37 [facility] Comment on above: Result Comment: PER ETEAL,RN DUPLICATE ORDERS Performed By: #### L 100.0100, L500.4050 ####[facility] [address] [place], [address] BUN Normal 4-19 [facility] Comment on above: Result Comment: PER ETEAL,RN DUPLICATE ORDERS Performed By: #### L 100.0100, L500.4050 ####[facility] [address] [place], [address] BUN/CRE Normal 10-20 [facility] Comment on above: Result Comment: PER ETEAL,RN DUPLICATE ORDERS Performed By: #### L 100.0100, L500.4050 ####[facility] [address] [place], [address] Calcium Normal 7.6-11.0 [facility] Comment on above: Result Comment: PER ETEAL,RN DUPLICATE ORDERS Performed By: #### L 100.0100, L500.4050 ####[facility] [address] [place], [address] CL Normal 98-108 [facility] Comment on above: Result Comment: PER ETEAL,RN DUPLICATE ORDERS Performed By: #### L 100.0100, L500.4050 ####[facility] [address] [place], [address] CO2 Normal 21.0-32.0 [facility] Comment on above: Result Comment: PER ETEAL,RN DUPLICATE ORDERS Performed By: #### L 100.0100, L500.4050 ####[facility] [address] [place], [address] CREAT,SERUM Normal 0.70-1.20 [facility] Comment on above: Result Comment: PER ETEAL,RN DUPLICATE ORDERS Performed By: #### L 100.0100, L500.4050 ####[facility] [address] [place], [address] eGFR Normal >60 [facility] Comment on above: Result Comment: PER ETEAL,RN DUPLICATE ORDERS Performed By: #### L 100.0100, L500.4050 ####[facility] [address] [place], [address] GAP Normal 5-15 [facility] Comment on above: Result Comment: PER ETEAL,RN DUPLICATE ORDERS Performed By: #### L 100.0100, L500.4050 ####[facility] [address] [place], [address] GLU Normal 70-99 [facility] Comment on above: Result Comment: PER ETEAL,RN DUPLICATE ORDERS Performed By: #### L 100.0100, L500.4050 ####[facility] [address] [place], [address] Potassium Normal 3.3-5.1 [facility] Comment on above: Result Comment: PER ETEAL,RN DUPLICATE ORDERS Performed By: #### L 100.0100, L500.4050 ####[facility] [address] [place], [address] T BILI Normal 0.00-1.30 [facility] Comment on above: Result Comment: PER ETEAL,RN DUPLICATE ORDERS Performed By: #### L 100.0100, L500.4050 ####[facility] [address] [place], [address] T PROT Normal 5.9-8.4 [facility] Comment on above: Result Comment: SUNITHA RIGGINS RN DUPLICATE ORDERS Performed By: #### L 100.0100, L500.4050 ####[facility] [address] [place], [address] Comprehensive Metabolic Profil Normal 133-145 [facility] Comment on above: Result Comment: SUNITHA RIGGINS RN DUPLICATE ORDERS Performed By: #### L 100.0100, L500.4050 ####[facility] [address] [place], [address] Emergency Department Summary on 05-29-2025 Emergency Department Summary Normal [facility] Eosinophil percentageOrdered By: Antonette Dominguez on 05-29-2025 Eosinophils/100 WBC (Bld) 5.9 % High 0-5 [facility] Erythrocyte distribution wid th ratioOrdered By: Antonette Dominguez on 05-29-2025 Erythrocyte distribution width (RBC) [Ratio] 13.7 % 11.6-14.6 [facility] Erythrocyte distribution wid th standard deviationOrdered By: Antonette Dominguez on 05-29-2025 Erythrocyte distribution width (RBC) [Ratio] 42.3 fl 35.1-43.9 [facility] Glomerular filtration rate ( GFR) estimation/1.73 sq m using serum, plasma, or whole bOrdered By: Antonette Dominguez on 05-29-2025 GFR/1.73 sq M.predicted among non-blacks MDRD (S/P/Bld) [Vol rate/Area] 96 mL/min/{1.73_m2} >60 [facility] Comment on above: mL/min/1.73m2 CKD-EP I Creatinine Equation (2020) Hematocrit Auto (Bld) [Volum e fraction]Ordered By: Antonette Dominguez on 05-29-2025 Hematocrit (Bld) [Volume fraction] 36.6 % Low 40-54 [facility] Hemoglobin measurementOrdere d By: Antonette Dominguez on 05-29-2025 Hemoglobin (Bld) [Mass/Vol] 12.5 g/dL Low 13.0-16.5 [facility] Immature granulocytes/100 WB C Auto (Bld)Ordered By: Antonette Dominguez on 05-29-2025 Immature granulocytes/100 WBC (Bld) 0.400 % 0.0-0.9 [facility] Comment on above: IG% - Immature Granu locytes (promyelocytes, myelocytes and metamyelocytes) > 1% indicates that a LEFT SHIFT is Present. Ketones Test strip Ql (U)Ord ered By: Antonette Dominguez on 05-29-2025 Ketones Ql (U) Negative Negative [facility] Laboratory - Chemistry and C hemistry - challengeOrdered By: Antonette Dominguez on 05-29-2025 AST [Catalytic activity/Vol] 16 U/L <38 [facility] Lipaseon 05-29-2025 Lipase [Catalytic activity/Vol] 24 U/L Normal 13-75 [facility] Comment on above: Result Comment: Oleksandr lopez note:LIPASE revised reference range effective 23.New Lipase methodology. Expected to produce lower valuesthan the previous assay method.NEW Reference Range: 13 - 75 U/L Performed By: #### L 501.2450, L500.4050, L100.0100 ####[facility] [address] [place], [address] Lipase measurementOrdered By : Antonette Dominguez on 05-29-2025 Lipase [Catalytic activity/Vol] 24 U/L 13-75 [facility] Comment on above: Please note:LIPASE r evised reference range effective 23. New Lipase methodology. Expected to produce lower values than the previous assay method. NEW Reference Range: 13 - 75 U/L MCV (mean corpuscular volume ) determinationOrdered By: Antonette Dominguez on 05-29-2025 MCV (RBC) [Entitic vol] 84.1 fL 80-94 [facility] Mean corpuscular hemoglobin (MCH) determinationOrdered By: Antonette Dominguez on 05-29-2025 MCH (RBC) [Entitic mass] 28.7 pg 27.0-32.0 [facility] Mean corpuscular hemoglobin concentration (MCHC) determinationOrdered By: Antonette Dominguez on 05-29-2025 MCHC (RBC) [Mass/Vol] 34.2 g/dL 32-36 [facility] Mean platelet volume determi nationOrdered By: Antonette Dominguez on 05-29-2025 Platelet mean volume (Bld) [Entitic vol] 9.0 fL 6.2-12.0 [facility] Microscopic analysis of urin e for red blood cells (RBC)Ordered By: Antonette Dominguez on 05-29-2025 Microscopic analysis of urine for red blood cells (RBC) 0-5 SEEN /hpf 0-5 [facility] Monocyte percentageOrdered B y: Antonette Dominguez on 05-29-2025 Monocytes/100 WBC (Bld) 9.6 % 0-10 [facility] Mucus LM Ql (Urine sed)Order ed By: Antonette Dominguez on 05-29-2025 Mucus Ql (Urine sed) 0 SEEN /hpf [facility] Neutrophil percentageOrdered By: Antonette Dominguez on 05-29-2025 Neutrophils/100 WBC (Bld) 60.2 % 47-70 [facility] Nitrite Test strip Ql (U)Ord ered By: Antonette Dominguez on 05-29-2025 Nitrite Ql (U) Positive High Negative [facility] No Panel InformationOrdered By: Antonette Dominguez on 05-29-2025 16 U/L <38 [facility] Nucleated red blood cell per centageOrdered By: Antonette Dominguez on 05-29-2025 Nucleated RBC/100 WBC (Bld) [Ratio] 0 % 0-5 [facility] Platelet countOrdered By: Gibran Dominguez on 05-29-2025 Platelets (Bld) [#/Vol] 204 10*3/uL 150-450 [facility] Potassium measurement (mass/ volume)Ordered By: Antonette Dominguez on 05-29-2025 Potassium (Unsp spec) [Mass/Vol] 4.2 mmol/L 3.3-5.1 [facility] Protein Test strip Ql (U)Ord ered By: Antonette Dominguez on 05-29-2025 Protein Ql (U) 30 mg/dl High Negative [facility] RBC Auto (Bld) [#/Vol]Ordere d By: Antonette Dominguez on 05-29-2025 RBC (Bld) [#/Vol] 4.35 10*6/uL Low 4.6-6.2 [facility] Serum creatinine measurement (mass/volume)Ordered By: Antonette Dominguez on 05-29-2025 Creatinine [Mass/Vol] 0.87 mg/dL 0.70-1.20 [facility] Serum globulin measurementOr dered By: Antonette Dominguez on 05-29-2025 Globulin (S) [Mass/Vol] 2.8 g/dL 2.2-4.2 [facility] Serum glucose measurement (m ass/volume)Ordered By: Antonette Dominguez on 05-29-2025 Glucose [Mass/Vol] 117 mg/dL High 70-99 [facility] Serum or plasma alanine wagoner otransferase (ALT) measurementOrdered By: Antonette Dominguez on 05-29-2025 ALT [Catalytic activity/Vol] 12 U/L <47 [facility] Serum or plasma albumin yayo urement (mass/volume)Ordered By: Antonette Dominguez on 05-29-2025 Albumin [Mass/Vol] 3.8 g/dL 3.4-4.8 [facility] Serum or plasma albumin/glob ulin mass ratioOrdered By: Antonette Dominguez on 05-29-2025 Albumin/Globulin [Mass ratio] 1.4 {ratio} 0.9-2.4 [facility] Serum or plasma alkaline andrzej sphatase measurementOrdered By: Antonette Dominugez on 05-29-2025 ALP [Catalytic activity/Vol] 83 U/L 40-129 [facility] Serum or plasma calcium yayo urement (mass/volume)Ordered By: Antonette Dominguez on 05-29-2025 Calcium [Mass/Vol] 8.9 mg/dL 7.6-11.0 [facility] Serum or plasma urea nitroge n measurement (mass/volume)Ordered By: Antonette Dominguez on 05-29-2025 Urea nitrogen [Mass/Vol] 19 mg/dL 4-19 [facility] Sodium levelOrdered By: Rubi Dominguez on 05-29-2025 Sodium [Moles/Vol] 141 mmol/L 133-145 [facility] Squamous epithelial cells de tection in urine sediment by light microscopyOrdered By: Antonettewen Dominguez on 05-29-2025 Epithelial cells.squamous LM Ql (Urine sed) 0 SEEN /hpf 0-5 [facility] Total proteinOrdered By: Manasa julio Dominguez on 05-29-2025 Protein [Mass/Vol] 6.6 g/dL 5.9-8.4 [facility] Urinalysis, Completeon 05-29 EPI,SQUAMOUS 0 SEEN Normal 0-5 [facility] Comment on above: Order Comment: NO CTOR TO SPECIFY Performed By: #### L 400.0001 ####[facility] [address] [place], [address] Mucus Ql (Urine sed) 0 SEEN Normal [facility] Comment on above: Order Comment: NO NEVAREZOR TO SPECIFY Performed By: #### L 400.0001 ####[facility] [address] [place], [address] BACTERIA Normal None Seen [facility] Comment on above: Order Comment: CLEAN CATCH Result Comment: Canc elled via OM: Duplicate Order Performed By: #### L 400.0001 ####[facility] [address] [place], [address] BILIRUBIN URINE Normal Negative [facility] Comment on above: Order Comment: CLEAN CATCH Result Comment: Canc elled via OM: Duplicate Order Performed By: #### L 400.0001 ####[facility] [address] [place], [address] Clarity (U) Normal Clear [facility] Comment on above: Order Comment: CLEAN CATCH Result Comment: Canc elled via OM: Duplicate Order Performed By: #### L 400.0001 ####[facility] [address] [place], [address] Color (U) Normal Yellow [facility] Comment on above: Order Comment: CLEAN CATCH Result Comment: Canc elled via OM: Duplicate Order Performed By: #### L 400.0001 ####[facility] [address] [place], [address] EPI,SQUAMOUS Normal 0-5 [facility] Comment on above: Order Comment: CLEAN CATCH Result Comment: Canc elled via OM: Duplicate Order Performed By: #### L 400.0001 ####[facility] [address] [place], [address] GLUCOSE, UR Normal Normal [facility] Comment on above: Order Comment: CLEAN CATCH Result Comment: Canc elled via OM: Duplicate Order Performed By: #### L 400.0001 ####[facility] [address] [place], [address] KETONE UR Normal Negative [facility] Comment on above: Order Comment: CLEAN CATCH Result Comment: Canc elled via OM: Duplicate Order Performed By: #### L 400.0001 ####[facility] [address] [place], [address] LEUK ESTERASE Normal Negative [facility] Comment on above: Order Comment: CLEAN CATCH Result Comment: Canc elled via OM: Duplicate Order Performed By: #### L 400.0001 ####[facility] [address] [place], [address] Mucus Ql (Urine sed) Normal [facility] Comment on above: Order Comment: CLEAN CATCH Result Comment: Canc elled via OM: Duplicate Order Performed By: #### L 400.0001 ####[facility] [address] [place], [address] Nitrite Ql (U) Normal Negative [facility] Comment on above: Order Comment: CLEAN CATCH Result Comment: Canc elled via OM: Duplicate Order Performed By: #### L 400.0001 ####[facility] [address] [place], [address] OCCULT BLOOD-UR Normal Negative [facility] Comment on above: Order Comment: CLEAN CATCH Result Comment: Canc elled via OM: Duplicate Order Performed By: #### L 400.0001 ####[facility] [address] [place], [address] pH UR Normal 5.0 - 8.0 [facility] Comment on above: Order Comment: CLEAN CATCH Result Comment: Canc elled via OM: Duplicate Order Performed By: #### L 400.0001 ####[facility] [address] [place], [address] PROT DIPSTX Normal Negative [facility] Comment on above: Order Comment: CLEAN CATCH Result Comment: Canc elled via OM: Duplicate Order Performed By: #### L 400.0001 ####[facility] [address] [place], [address] RBC Normal 0-5 [facility] Comment on above: Order Comment: CLEAN CATCH Result Comment: Canc elled via OM: Duplicate Order Performed By: #### L 400.0001 ####[facility] [address] [place], [address] SP.GR. DIPSTX Normal 1.002-1.030 [facility] Comment on above: Order Comment: CLEAN CATCH Result Comment: Canc elled via OM: Duplicate Order Performed By: #### L 400.0001 ####[facility] [address] [place], [address] UR Preservative Normal [facility] Comment on above: Order Comment: CLEAN CATCH Result Comment: Canc elled via OM: Duplicate Order Performed By: #### L 400.0001 ####[facility] [address] [place], [address] UROBILI Normal Normal [facility] Comment on above: Order Comment: CLEAN CATCH Result Comment: Canc elled via OM: Duplicate Order Performed By: #### L 400.0001 ####[facility] [address] [place], [place], [address] WBC Normal 0-5 [facility] Comment on above: Order Comment: CLEAN CATCH Result Comment: Canc elled via OM: Duplicate Order Performed By: #### L 400.0001 ####[facility] [address] [place], [place], [address] Urine clarityOrdered By: Manasa Dominguez on 05-29-2025 Clarity (U) Cloudy Clear [facility] Urine color determinationOrd ered By: Antonette Dominguez on 05-29-2025 Color (U) Yellow Yellow [facility] Urine cultureOrdered By: Manasa Dominguez on 05-29-2025 Bacteria identified Cx Nom (U) Staphylococcus aureus Abnormal [facility] Urine glucose detectionOrder ed By: Antonette Dominguez on 05-29-2025 Glucose Ql (U) Normal mg/dl Normal [facility] Urine leukocyte esterase det ection by dipstickOrdered By: Antonette Dominguez on 05-29-2025 Leukocyte esterase Test strip Ql (U) 500 /ul High Negative [facility] Urine pHOrdered By: Antonette salomon on 05-29-2025 pH (U) 6.0 [pH] 5.0 - 8.0 [facility] Urine sediment bacteria coun t by microscopy (number/high power field)Ordered By: Antonette Dominguez on 05-29-2025 Bacteria LM.HPF (Urine sed) [#/Area] 3 /[HPF] None Seen [facility] Urine specific gravity measu rementOrdered By: Antonette Dominguez on 05-29-2025 Specific gravity (U) [Rel density] 1.020 1.002-1.030 [facility] Urine urobilinogen measureme ntOrdered By: Antonette Dominguez on 05-29-2025 Urobilinogen Ql (U) Normal mg/dl Normal [facility] White blood cell (WBC) count Ordered By: Antonette Dominguez on 05-29-2025 WBC (Bld) [#/Vol] 8.3 10*3/uL 4.4-11.0 [facility] White blood cell countOrdere d By: Antonette Dominguez on 05-29-2025 White blood cell count 25-50 SEEN /hpf 0-5 [facility] Gastroenterology Visit Repor ton 05-23-2025 Gastroenterology Visit Report Normal [facility] 12 Lead EKGon 05-22-2025 12 Lead EKG Normal [facility] Absolute lymphocyte countOrd ered By: Antonette Dominguez on 05-22-2025 Lymphocytes Auto (Unsp spec) [#/Vol] 1.32 10*3/uL 0.83-4.51 [facility] Absolute neutrophil countOrd ered By: Antonette Dominguez on 05-22-2025 Neutrophils (Bld) [#/Vol] 4.5 10*3/uL 2.0-7.7 [facility] Anion gap in Serum or Plasma Ordered By: Antonette Dominguez on 05-22-2025 Anion gap [Moles/Vol] 10 mmol/L 5-15 [facility] Automated lymphocyte count a s percentage of total leukocytesOrdered By: Antonette Dominguez on 05-22-2025 Lymphocytes/100 WBC Auto (Unsp spec) 19.8 % 19-41 [facility] BUN/creatinine ratioOrdered By: Antonette Dominguez on 05-22-2025 Urea nitrogen/Creatinine [Mass ratio] 17.8 mg/mg 10-20 [facility] Basophil percentageOrdered B y: Antonette Dominguez on 05-22-2025 Basophils/100 WBC (Bld) 0.6 % 0-1 [facility] Bilirubin, totalOrdered By: Antonette Dominguez on 05-22-2025 Bilirubin [Mass/Vol] 0.27 mg/dL 0.00-1.30 [facility] CBC W/Diff, Automatedon 05-01 Absolute Lymph 1.32 X10 3/uL Normal 0.83-4.51 [facility] Comment on above: Performed By: #### L 100.0100 ####[facility] [address] [place], [address] Absolute Neut 4.5 X10 3/uL Normal 2.0-7.7 [facility] Comment on above: Performed By: #### L 100.0100 ####[facility] [address] [place], [address] Basophils/100 WBC (Bld) 0.6 % Normal 0-1 [facility] Comment on above: Performed By: #### L 100.0100 ####[facility] [address] [place], [address] Eosinophils/100 WBC (Bld) 4.5 % Normal 0-5 [facility] Comment on above: Performed By: #### L 100.0100 ####[facility] [address] [place], [address] Erythrocyte distribution width (RBC) [Ratio] 13.8 % Normal 11.6-14.6 [facility] Comment on above: Performed By: #### L 100.0100 ####[facility] [address] [place], [address] Hematocrit (Bld) [Volume fraction] 35.5 % Low 40-54 [facility] Comment on above: Performed By: #### L 100.0100 ####[facility] [address] [place], [address] Hemoglobin (Bld) [Mass/Vol] 12.3 g/dL Low 13.0-16.5 [facility] Comment on above: Performed By: #### L 100.0100 ####[facility] [address] [place], [address] IG% 0.300 Normal 0.0-0.9 [facility] Comment on above: Result Comment: IG% - Immature Granulocytes (promyelocytes, myelocytes andmetamyelocytes) > 1% indicates that a LEFT SHIFT is Present. Performed By: #### L 100.0100 ####[facility] [address] [place], [address] Lymphocytes/100 WBC (Bld) 19.8 % Normal 19-41 [facility] Comment on above: Performed By: #### L 100.0100 ####[facility] [address] [place], [address] MCH (RBC) [Entitic mass] 28.4 pg Normal 27.0-32.0 [facility] Comment on above: Performed By: #### L 100.0100 ####[facility] [address] [place], [address] MCHC (RBC) [Mass/Vol] 34.6 g/dL Normal 32-36 [facility] Comment on above: Performed By: #### L 100.0100 ####[facility] [address] [place], [address] MCV (RBC) [Entitic vol] 82.0 fL Normal 80-94 [facility] Comment on above: Performed By: #### L 100.0100 ####[facility] [address] [place], [address] Monocytes/100 WBC (Bld) 7.7 % Normal 0-10 [facility] Comment on above: Performed By: #### L 100.0100 ####[facility] [address] [place], [address] Neutrophils/100 WBC (Bld) 67.1 % Normal 47-70 [facility] Comment on above: Performed By: #### L 100.0100 ####[facility] [address] [place], [address] Nucleated RBC (Bld) [#/Vol] 0 10*3/uL Normal 0-5 [facility] Comment on above: Performed By: #### L 100.0100 ####[facility] [address] [place], [address] Platelet mean volume (Bld) [Entitic vol] 8.8 fL Normal 6.2-12.0 [facility] Comment on above: Performed By: #### L 100.0100 ####[facility] [address] [place], [address] Platelets (Bld) [#/Vol] 151 10*3/uL Normal 150-450 [facility] Comment on above: Performed By: #### L 100.0100 ####[facility] [address] [place], [address] RBC (Bld) [#/Vol] 4.33 10*6/uL Low 4.6-6.2 [facility] Comment on above: Performed By: #### L 100.0100 ####[facility] [address] [place], [address] RDW SD 40.8 fl Normal 35.1-43.9 [facility] Comment on above: Performed By: #### L 100.0100 ####[facility] [address] [place], [address] WBC (Bld) [#/Vol] 6.7 10*3/uL Normal 4.4-11.0 [facility] Comment on above: Performed By: #### L 100.0100 ####[facility] [address] [place], [address] Carbon dioxide, total [Moles /volume] in Central venous bloodOrdered By: Antonette Dominguez on 05-22-2025 CO2 [Moles/Vol] 29.9 mmol/L 21.0-32.0 [facility] Chloride assayOrdered By: Gibran Dominguez on 05-22-2025 Chloride [Moles/Vol] 100 mmol/L 98-108 [facility] Comprehensive Metabolic Prof ilon 05-22-2025 Albumin [Mass/Vol] 3.6 g/dL Normal 3.4-4.8 [facility] Comment on above: Performed By: #### L 500.4050, L501.5200 ####[facility] [address] [place], [address] Albumin/Globulin [Mass ratio] 1.4 {ratio} Normal 0.9-2.4 [facility] Comment on above: Performed By: #### L 500.4050, L501.5200 ####[facility] [address] [place], [address] ALK PHOS 79 U/L Normal 40-129 [facility] Comment on above: Performed By: #### L 500.4050, L501.5200 ####[facility] [address] [place], [address] ALT [Catalytic activity/Vol] 10 U/L Normal <=46 [facility] Comment on above: Performed By: #### L 500.4050, L501.5200 ####[facility] [address] [place], [address] AST [Catalytic activity/Vol] 13 U/L Normal <=37 [facility] Comment on above: Performed By: #### L 500.4050, L501.5200 ####[facility] [address] [place], [address] Bilirubin [Mass/Vol] 0.27 mg/dL Normal 0.00-1.30 [facility] Comment on above: Performed By: #### L 500.4050, L501.5200 ####[facility] [address] [place], [address] BUN/CRE 17.8 RATIO Normal 10-20 [facility] Comment on above: Performed By: #### L 500.4050, L501.5200 ####[facility] [address] [place], [address] Calcium [Mass/Vol] 9.3 mg/dL Normal 7.6-11.0 [facility] Comment on above: Performed By: #### L 500.4050, L501.5200 ####[facility] [address] [place], [address] Chloride [Moles/Vol] 100 mmol/L Normal 98-108 [facility] Comment on above: Performed By: #### L 500.4050, L501.5200 ####[facility] [address] [place], [address] CO2 [Moles/Vol] 29.9 mmol/L Normal 21.0-32.0 [facility] Comment on above: Performed By: #### L 500.4050, L501.5200 ####[facility] [address] [place], [address] Creatinine [Mass/Vol] 0.90 mg/dL Normal 0.70-1.20 [facility] Comment on above: Performed By: #### L 500.4050, L501.5200 ####[facility] [address] [place], [address] ECRCL 103.13 ml/min Normal 50-250 [facility] Comment on above: Performed By: #### L 500.4050, L501.5200 ####[facility] [address] [place], [address] GAP 10 Normal 5-15 [facility] Comment on above: Performed By: #### L 500.4050, L501.5200 ####[facility] [address] [place], [address] GFR/1.73 sq M.predicted among non-blacks MDRD (S/P/Bld) [Vol rate/Area] 95 mL/min/{1.73_m2} Normal >60 [facility] Comment on above: Result Comment: mL/m in/1.73m2 CKD-EPI Creatinine Equation (2020) Performed By: #### L 500.4050, L501.5200 ####[facility] [address] [place], [address] Globulin (S) [Mass/Vol] 2.5 g/dL Normal 2.2-4.2 [facility] Comment on above: Performed By: #### L 500.4050, L501.5200 ####[facility] [address] [place], [address] Glucose [Mass/Vol] 183 mg/dL High 70-99 [facility] Comment on above: Performed By: #### L 500.4050, L501.5200 ####[facility] [address] [place], [address] Potassium [Moles/Vol] 4.0 mmol/L Normal 3.3-5.1 [facility] Comment on above: Performed By: #### L 500.4050, L501.5200 ####[facility] [address] [place], [address] Sodium [Moles/Vol] 139 mmol/L Normal 133-145 [facility] Comment on above: Performed By: #### L 500.4050, L501.5200 ####[facility] [address] [place], [address] T PROT 6.2 g/dL Normal 5.9-8.4 [facility] Comment on above: Performed By: #### L 500.4050, L501.5200 ####[facility] [address] [place], [address] Urea nitrogen [Mass/Vol] 16 mg/dL Normal 4-19 [facility] Comment on above: Performed By: #### L 500.4050, L501.5200 ####[facility] [address] [place], [address] Emergency Department Summary on 05-22-2025 Emergency Department Summary Normal [facility] Eosinophil percentageOrdered By: Antonette Dominguez on 05-22-2025 Eosinophils/100 WBC (Bld) 4.5 % 0-5 [facility] Erythrocyte distribution wid th ratioOrdered By: Antonette Dominguez on 05-22-2025 Erythrocyte distribution width (RBC) [Ratio] 13.8 % 11.6-14.6 [facility] Erythrocyte distribution wid th standard deviationOrdered By: Antonette Dominguez on 05-22-2025 Erythrocyte distribution width (RBC) [Ratio] 40.8 fl 35.1-43.9 [facility] Glomerular filtration rate ( GFR) estimation/1.73 sq m using serum, plasma, or whole bOrdered By: Antonette Dominguez on 05-22-2025 GFR/1.73 sq M.predicted among non-blacks MDRD (S/P/Bld) [Vol rate/Area] 95 mL/min/{1.73_m2} >60 [facility] Comment on above: mL/min/1.73m2 CKD-EP I Creatinine Equation (2020) Hematocrit Auto (Bld) [Volum e fraction]Ordered By: Antonette Dominguez on 05-22-2025 Hematocrit (Bld) [Volume fraction] 35.5 % Low 40-54 [facility] Hemoglobin measurementOrdere d By: Antonette Dominguez on 05-22-2025 Hemoglobin (Bld) [Mass/Vol] 12.3 g/dL Low 13.0-16.5 [facility] Immature granulocytes/100 WB C Auto (Bld)Ordered By: Antonette Dominguez on 05-22-2025 Immature granulocytes/100 WBC (Bld) 0.300 % 0.0-0.9 [facility] Comment on above: IG% - Immature Granu locytes (promyelocytes, myelocytes and metamyelocytes) > 1% indicates that a LEFT SHIFT is Present. Laboratory - Chemistry and C hemistry - challengeOrdered By: Antonettewen Dominguez 05-22-2025 AST [Catalytic activity/Vol] 13 U/L <38 [facility] MCV (mean corpuscular volume ) determinationOrdered By: Antonettewen Dominguez 05-22-2025 MCV (RBC) [Entitic vol] 82.0 fL 80-94 [facility] Magnesiumon 05-22-2025 Magnesium [Mass/Vol] 1.3 mg/dL Low 1.5-2.2 [facility] Comment on above: Performed By: #### L 500.4050, L501.5200 ####[facility] [address] [place], [place], [address] Magnesium measurement (mass/ volume)Ordered By: Antonette Dominguez on 05-22-2025 Magnesium (Unsp spec) [Mass/Vol] 1.3 mg/dL Low 1.5-2.2 [facility] Mean corpuscular hemoglobin (MCH) determinationOrdered By: Antonette Dominguez on 05-22-2025 MCH (RBC) [Entitic mass] 28.4 pg 27.0-32.0 [facility] Mean corpuscular hemoglobin concentration (MCHC) determinationOrdered By: Antonette Dominguez on 05-22-2025 MCHC (RBC) [Mass/Vol] 34.6 g/dL 32-36 [facility] Mean platelet volume determi nationOrdered By: Antonette Dominguez on 05-22-2025 Platelet mean volume (Bld) [Entitic vol] 8.8 fL 6.2-12.0 [facility] Monocyte percentageOrdered B y: Antonette Dominguez on 05-22-2025 Monocytes/100 WBC (Bld) 7.7 % 0-10 [facility] Neutrophil percentageOrdered By: Antonette Dominguez on 05-22-2025 Neutrophils/100 WBC (Bld) 67.1 % 47-70 [facility] No Panel InformationOrdered By: Antonette Dominguez on 05-22-2025 13 U/L <38 [facility] Nucleated red blood cell per centageOrdered By: Antonette Dmoinguez on 05-22-2025 Nucleated RBC/100 WBC (Bld) [Ratio] 0 % 0-5 [facility] Platelet countOrdered By: Gibran Dominguez on 05-22-2025 Platelets (Bld) [#/Vol] 151 10*3/uL 150-450 [facility] Potassium measurement (mass/ volume)Ordered By: Antonette Dominguez on 05-22-2025 Potassium (Unsp spec) [Mass/Vol] 4.0 mmol/L 3.3-5.1 [facility] RBC Auto (Bld) [#/Vol]Ordere d By: Antonette Dominguez on 05-22-2025 RBC (Bld) [#/Vol] 4.33 10*6/uL Low 4.6-6.2 [facility] Serum creatinine measurement (mass/volume)Ordered By: Antonette Dominguez on 05-22-2025 Creatinine [Mass/Vol] 0.90 mg/dL 0.70-1.20 [facility] Serum globulin measurementOr dered By: Antonette Dominguez on 05-22-2025 Globulin (S) [Mass/Vol] 2.5 g/dL 2.2-4.2 [facility] Serum glucose measurement (m ass/volume)Ordered By: Antonette Dominguez on 05-22-2025 Glucose [Mass/Vol] 183 mg/dL High 70-99 [facility] Serum or plasma alanine wagoner otransferase (ALT) measurementOrdered By: Antonette Dominguez on 05-22-2025 ALT [Catalytic activity/Vol] 10 U/L <47 [facility] Serum or plasma albumin yayo urement (mass/volume)Ordered By: Antonette Dominguez on 05-22-2025 Albumin [Mass/Vol] 3.6 g/dL 3.4-4.8 [facility] Serum or plasma albumin/glob ulin mass ratioOrdered By: Antonette Dominguez on 05-22-2025 Albumin/Globulin [Mass ratio] 1.4 {ratio} 0.9-2.4 [facility] Serum or plasma alkaline andrzej sphatase measurementOrdered By: Antonette Dominguez on 05-22-2025 ALP [Catalytic activity/Vol] 79 U/L 40-129 [facility] Serum or plasma calcium yayo urement (mass/volume)Ordered By: Antonette Dominguez on 05-22-2025 Calcium [Mass/Vol] 9.3 mg/dL 7.6-11.0 [facility] Serum or plasma urea nitroge n measurement (mass/volume)Ordered By: Antonette Dominguez on 05-22-2025 Urea nitrogen [Mass/Vol] 16 mg/dL 4-19 [facility] Sodium levelOrdered By: Rubi Dominguez on 05-22-2025 Sodium [Moles/Vol] 139 mmol/L 133-145 [facility] Stool Occult Blood iFOBon STOB Positive Normal [facility] Comment on above: Performed By: #### M 100.7900 ####[facility] [address] [place], [place], [address] Stool gastrointestinal hemog lobin detection by immunologic methodOrdered By: Antonette Dominguez on 05-22-2025 Lower GI hemoglobin IA Ql (Stl) Positive Abnormal [facility] Total proteinOrdered By: Manasa Dominguez on 05-22-2025 Protein [Mass/Vol] 6.2 g/dL 5.9-8.4 [facility] White blood cell (WBC) count Ordered By: Antonette Dominguez on 05-22-2025 WBC (Bld) [#/Vol] 6.7 10*3/uL 4.4-11.0 [facility] Urine Cultureon 05-05-2025 URC Normal [facility] Comment on above: Performed By: #### M 100.2209 ####[facility] [address] [place], [place], [id number] 12 Lead EKGon 05-03-2025 12 Lead EKG Normal [facility] Absolute lymphocyte countOrd ered By: Cinthia Wilson on 05-03-2025 Lymphocytes Auto (Unsp spec) [#/Vol] 1.45 10*3/uL 0.83-4.51 [facility] Absolute neutrophil countOrd ered By: Cinthia Wilson on 05-03-2025 Neutrophils (Bld) [#/Vol] 7.2 10*3/uL 2.0-7.7 [facility] Anion gap in Serum or Plasma Ordered By: Cinthia Wilson on 05-03-2025 Anion gap [Moles/Vol] 12 mmol/L 5-15 [facility] Automated lymphocyte count a s percentage of total leukocytesOrdered By: Cinthia Wilson on 05-03-2025 Lymphocytes/100 WBC Auto (Unsp spec) 15.1 % Low 19-41 [facility] BUN/creatinine ratioOrdered By: Cinthia Wilson on 05-03-2025 Urea nitrogen/Creatinine [Mass ratio] 25.5 mg/mg High 10-20 [facility] Basophil percentageOrdered B y: Cinthia Wilson on 05-03-2025 Basophils/100 WBC (Bld) 0.6 % 0-1 [facility] Bedside Glucoseon 05-03-2025 FINGERSTICK GLU 226 mg/dL High 74-106 [facility] Comment on above: Result Comment: TAYLOR SEALS OF PATIENT CARE PER NURSING PROTOCOL Performed By: #### L 501.080 ####[facility] [address] [place], [address] Bilirubin Test strip Ql (U)O rdered By: Cinthia Wilson on 05-03-2025 Bilirubin Ql (U) Negative Negative [facility] Bilirubin, totalOrdered By: Cinthia Wilson on 05-03-2025 Bilirubin [Mass/Vol] 0.34 mg/dL 0.00-1.30 [facility] CBC W/Diff, Automatedon Absolute Lymph 1.45 X10 3/uL Normal 0.83-4.51 [facility] Comment on above: Performed By: #### L 500.4050, L100.0100 ####[facility] [address] [place], [address] Absolute Neut 7.2 X10 3/uL Normal 2.0-7.7 [facility] Comment on above: Performed By: #### L 500.4050, L100.0100 ####[facility] [address] [place], [address] Basophils/100 WBC (Bld) 0.6 % Normal 0-1 [facility] Comment on above: Performed By: #### L 500.4050, L100.0100 ####[facility] [address] [place], [address] Eosinophils/100 WBC (Bld) 2.1 % Normal 0-5 [facility] Comment on above: Performed By: #### L 500.4050, L100.0100 ####[facility] [address] [place], [address] Erythrocyte distribution width (RBC) [Ratio] 13.6 % Normal 11.6-14.6 [facility] Comment on above: Performed By: #### L 500.4050, L100.0100 ####[facility] [address] [place], [address] Hematocrit (Bld) [Volume fraction] 39.5 % Low 40-54 [facility] Comment on above: Performed By: #### L 500.4050, L100.0100 ####[facility] [address] [place], [address] Hemoglobin (Bld) [Mass/Vol] 14.0 g/dL Normal 13.0-16.5 [facility] Comment on above: Performed By: #### L 500.4050, L100.0100 ####[facility] [address] [place], [address] IG% 0.300 Normal 0.0-0.9 [facility] Comment on above: Result Comment: IG% - Immature Granulocytes (promyelocytes, myelocytes andmetamyelocytes) > 1% indicates that a LEFT SHIFT is Present. Performed By: #### L 500.4050, L100.0100 ####[facility] [address] [place], [address] Lymphocytes/100 WBC (Bld) 15.1 % Low 19-41 [facility] Comment on above: Performed By: #### L 500.4050, L100.0100 ####[facility] [address] [place], [address] MCH (RBC) [Entitic mass] 28.6 pg Normal 27.0-32.0 [facility] Comment on above: Performed By: #### L 500.4050, L100.0100 ####[facility] [address] [place], [address] MCHC (RBC) [Mass/Vol] 35.4 g/dL Normal 32-36 [facility] Comment on above: Performed By: #### L 500.4050, L100.0100 ####[facility] [address] [place], [address] MCV (RBC) [Entitic vol] 80.8 fL Normal 80-94 [facility] Comment on above: Performed By: #### L 500.4050, L100.0100 ####[facility] [address] [place], [address] Monocytes/100 WBC (Bld) 6.8 % Normal 0-10 [facility] Comment on above: Performed By: #### L 500.4050, L100.0100 ####[facility] [address] [place], [address] Neutrophils/100 WBC (Bld) 75.1 % High 47-70 [facility] Comment on above: Performed By: #### L 500.4050, L100.0100 ####[facility] [address] [place], [address] Nucleated RBC (Bld) [#/Vol] 0 10*3/uL Normal 0-5 [facility] Comment on above: Performed By: #### L 500.4050, L100.0100 ####[facility] [address] [place], [address] Platelet mean volume (Bld) [Entitic vol] 8.9 fL Normal 6.2-12.0 [facility] Comment on above: Performed By: #### L 500.4050, L100.0100 ####[facility] [address] [place], [address] Platelets (Bld) [#/Vol] 251 10*3/uL Normal 150-450 [facility] Comment on above: Performed By: #### L 500.4050, L100.0100 ####[facility] [address] [place], [address] RBC (Bld) [#/Vol] 4.89 10*6/uL Normal 4.6-6.2 [facility] Comment on above: Performed By: #### L 500.4050, L100.0100 ####[facility] [address] [place], [address] RDW SD 39.5 fl Normal 35.1-43.9 [facility] Comment on above: Performed By: #### L 500.4050, L100.0100 ####[facility] [address] [place], [address] WBC (Bld) [#/Vol] 9.6 10*3/uL Normal 4.4-11.0 [facility] Comment on above: Performed By: #### L 500.4050, L100.0100 ####[facility] [address] [place], [address] Carbon dioxide, total [Moles /volume] in Central venous bloodOrdered By: Cinthia Wilson on 05-03-2025 CO2 [Moles/Vol] 23.1 mmol/L 21.0-32.0 [facility] Chloride assayOrdered By: Crissy Wilson on 05-03-2025 Chloride [Moles/Vol] 101 mmol/L 98-108 [facility] Comprehensive Metabolic Prof ilon 05-03-2025 Albumin [Mass/Vol] 4.2 g/dL Normal 3.4-4.8 [facility] Comment on above: Performed By: #### L 500.4050, L100.0100 ####[facility] [address] [place], [address] Albumin/Globulin [Mass ratio] 1.3 {ratio} Normal 0.9-2.4 [facility] Comment on above: Performed By: #### L 500.4050, L100.0100 ####[facility] [address] [place], [address] ALK PHOS 112 U/L Normal 40-129 [facility] Comment on above: Performed By: #### L 500.4050, L100.0100 ####[facility] [address] [place], [address] ALT [Catalytic activity/Vol] 8 U/L Normal <=46 [facility] Comment on above: Performed By: #### L 500.4050, L100.0100 ####[facility] [address] [place], [address] AST [Catalytic activity/Vol] 14 U/L Normal <=37 [facility] Comment on above: Performed By: #### L 500.4050, L100.0100 ####[facility] [address] [place], [address] Bilirubin [Mass/Vol] 0.34 mg/dL Normal 0.00-1.30 [facility] Comment on above: Performed By: #### L 500.4050, L100.0100 ####[facility] [address] [place], [address] BUN/CRE 25.5 RATIO High 10-20 [facility] Comment on above: Performed By: #### L 500.4050, L100.0100 ####[facility] [address] [place], [address] Calcium [Mass/Vol] 9.5 mg/dL Normal 7.6-11.0 [facility] Comment on above: Performed By: #### L 500.4050, L100.0100 ####[facility] [address] [place], [address] Chloride [Moles/Vol] 101 mmol/L Normal 98-108 [facility] Comment on above: Performed By: #### L 500.4050, L100.0100 ####[facility] [address] [place], [address] CO2 [Moles/Vol] 23.1 mmol/L Normal 21.0-32.0 [facility] Comment on above: Performed By: #### L 500.4050, L100.0100 ####[facility] [address] [place], [address] Creatinine [Mass/Vol] 0.89 mg/dL Normal 0.70-1.20 [facility] Comment on above: Performed By: #### L 500.4050, L100.0100 ####[facility] [address] [place], [address] ECRCL 104.28 ml/min Normal 50-250 [facility] Comment on above: Performed By: #### L 500.4050, L100.0100 ####[facility] [address] [place], [address] GAP 12 Normal 5-15 [facility] Comment on above: Performed By: #### L 500.4050, L100.0100 ####[facility] [address] [place], [address] GFR/1.73 sq M.predicted among non-blacks MDRD (S/P/Bld) [Vol rate/Area] 95 mL/min/{1.73_m2} Normal >60 [facility] Comment on above: Result Comment: mL/m in/1.73m2 CKD-EPI Creatinine Equation (2020) Performed By: #### L 500.4050, L100.0100 ####[facility] [address] [place], [address] Globulin (S) [Mass/Vol] 3.1 g/dL Normal 2.2-4.2 [facility] Comment on above: Performed By: #### L 500.4050, L100.0100 ####[facility] [address] [place], [address] Glucose [Mass/Vol] 215 mg/dL High 70-99 [facility] Comment on above: Performed By: #### L 500.4050, L100.0100 ####[facility] [address] [place], [address] Potassium [Moles/Vol] 4.4 mmol/L Normal 3.3-5.1 [facility] Comment on above: Performed By: #### L 500.4050, L100.0100 ####[facility] [address] [place], [address] Sodium [Moles/Vol] 136 mmol/L Normal 133-145 [facility] Comment on above: Performed By: #### L 500.4050, L100.0100 ####[facility] [address] [place], [address] T PROT 7.3 g/dL Normal 5.9-8.4 [facility] Comment on above: Performed By: #### L 500.4050, L100.0100 ####[facility] [address] [place], [address] Urea nitrogen [Mass/Vol] 23 mg/dL High 4-19 [facility] Comment on above: Performed By: #### L 500.4050, L100.0100 ####[facility] [address] [place], [address] Emergency Department Summary on 05-03-2025 Emergency Department Summary Normal [facility] Eosinophil percentageOrdered By: Cinthia Wilson on 05-03-2025 Eosinophils/100 WBC (Bld) 2.1 % 0-5 [facility] Erythrocyte distribution wid th ratioOrdered By: Cinthia Wilson on 05-03-2025 Erythrocyte distribution width (RBC) [Ratio] 13.6 % 11.6-14.6 [facility] Erythrocyte distribution wid th standard deviationOrdered By: Cinthia Wilson on 05-03-2025 Erythrocyte distribution width (RBC) [Ratio] 39.5 fl 35.1-43.9 [facility] Glomerular filtration rate ( GFR) estimation/1.73 sq m using serum, plasma, or whole bOrdered By: Cinthia Wilson on 05-03-2025 GFR/1.73 sq M.predicted among non-blacks MDRD (S/P/Bld) [Vol rate/Area] 95 mL/min/{1.73_m2} >60 [facility] Comment on above: mL/min/1.73m2 CKD-EP I Creatinine Equation (2020) Gl[facility] at [facility] deOrdered By: Pedro Krishnan on 05-03-2025 Glucose [Mass/Vol] 226 mg/dL High 74-106 [facility] Comment on above: MANAGEMENT OF PATIEN T CARE PER NURSING PROTOCOL Hematocrit Auto (Bld) [Volum e fraction]Ordered By: Cinthia Wilson on 05-03-2025 Hematocrit (Bld) [Volume fraction] 39.5 % Low 40-54 [facility] Hemoglobin measurementOrdere d By: Cinthia Wilson on 05-03-2025 Hemoglobin (Bld) [Mass/Vol] 14.0 g/dL 13.0-16.5 [facility] Immature granulocytes/100 WB C Auto (Bld)Ordered By: Cinthia Wilson on 05-03-2025 Immature granulocytes/100 WBC (Bld) 0.300 % 0.0-0.9 [facility] Comment on above: IG% - Immature Granu locytes (promyelocytes, myelocytes and metamyelocytes) > 1% indicates that a LEFT SHIFT is Present. Ketones Test strip Ql (U)Ord ered By: Cinthia Wilson on 05-03-2025 Ketones Ql (U) Negative Negative [facility] Laboratory - Chemistry and C hemistry - challengeOrdered By: Cinthia Wilson on 05-03-2025 AST [Catalytic activity/Vol] 14 U/L <38 [facility] MCV (mean corpuscular volume ) determinationOrdered By: Cinthia Wilson on 05-03-2025 MCV (RBC) [Entitic vol] 80.8 fL 80-94 [facility] Mean corpuscular hemoglobin (MCH) determinationOrdered By: Cinthia Wilson on 05-03-2025 MCH (RBC) [Entitic mass] 28.6 pg 27.0-32.0 [facility] Mean corpuscular hemoglobin concentration (MCHC) determinationOrdered By: Cinthia Wilson on 05-03-2025 MCHC (RBC) [Mass/Vol] 35.4 g/dL 32-36 [facility] Mean platelet volume determi nationOrdered By: Cinthia Wilson on 05-03-2025 Platelet mean volume (Bld) [Entitic vol] 8.9 fL 6.2-12.0 [facility] Microscopic analysis of urin e for red blood cells (RBC)Ordered By: Cinthia Wislon on 05-03-2025 Microscopic analysis of urine for red blood cells (RBC) 0 SEEN /hpf 0-5 [facility] Monocyte percentageOrdered B y: Cinthia Wilson on 05-03-2025 Monocytes/100 WBC (Bld) 6.8 % 0-10 [facility] Mucus LM Ql (Urine sed)Order ed By: Cinthia Wilson on 05-03-2025 Mucus Ql (Urine sed) 0 SEEN /hpf [facility] Neutrophil percentageOrdered By: Cinthia Wilson on 05-03-2025 Neutrophils/100 WBC (Bld) 75.1 % High 47-70 [facility] Nitrite Test strip Ql (U)Ord ered By: Cinthia Wilson on 05-03-2025 Nitrite Ql (U) Negative Negative [facility] No Panel InformationOrdered By: Cinthia Wilson on 05-03-2025 14 U/L <38 [facility] Nucleated red blood cell per centageOrdered By: Cinthia Wilson on 05-03-2025 Nucleated RBC/100 WBC (Bld) [Ratio] 0 % 0-5 [facility] Platelet countOrdered By: Crissy Wilson on 05-03-2025 Platelets (Bld) [#/Vol] 251 10*3/uL 150-450 [facility] Potassium measurement (mass/ volume)Ordered By: Cinthia Wilson on 05-03-2025 Potassium (Unsp spec) [Mass/Vol] 4.4 mmol/L 3.3-5.1 [facility] Protein Test strip Ql (U)Ord ered By: Cinthia Wilson on 05-03-2025 Protein Ql (U) 30 mg/dl High Negative [facility] RBC Auto (Bld) [#/Vol]Ordere d By: Cinthia Wilson on 05-03-2025 RBC (Bld) [#/Vol] 4.89 10*6/uL 4.6-6.2 [facility] Serum creatinine measurement (mass/volume)Ordered By: Cinthia Wilson on 05-03-2025 Creatinine [Mass/Vol] 0.89 mg/dL 0.70-1.20 [facility] Serum globulin measurementOr dered By: Cinthia Wilson on 05-03-2025 Globulin (S) [Mass/Vol] 3.1 g/dL 2.2-4.2 [facility] Serum glucose measurement (m ass/volume)Ordered By: Cinthia Wilson on 05-03-2025 Glucose [Mass/Vol] 215 mg/dL High 70-99 [facility] Serum or plasma alanine wagoner otransferase (ALT) measurementOrdered By: Cinthia Wilson on 05-03-2025 ALT [Catalytic activity/Vol] 8 U/L <47 [facility] Serum or plasma albumin yayo urement (mass/volume)Ordered By: Cinthia Wilson on 05-03-2025 Albumin [Mass/Vol] 4.2 g/dL 3.4-4.8 [facility] Serum or plasma albumin/glob ulin mass ratioOrdered By: Cinthia Wilson on 05-03-2025 Albumin/Globulin [Mass ratio] 1.3 {ratio} 0.9-2.4 [facility] Serum or plasma alkaline andrzej sphatase measurementOrdered By: Cinthia Wilson on 05-03-2025 ALP [Catalytic activity/Vol] 112 U/L 40-129 [facility] Serum or plasma calcium yayo urement (mass/volume)Ordered By: Cinthia Wilson on 05-03-2025 Calcium [Mass/Vol] 9.5 mg/dL 7.6-11.0 [facility] Serum or plasma urea nitroge n measurement (mass/volume)Ordered By: Cinthia Wilson on 05-03-2025 Urea nitrogen [Mass/Vol] 23 mg/dL High 4-19 [facility] Sodium levelOrdered By: Cinthia Wilson on 05-03-2025 Sodium [Moles/Vol] 136 mmol/L 133-145 [facility] Squamous epithelial cells de tection in urine sediment by light microscopyOrdered By: Cinthia Wilson on 05-03-2025 Epithelial cells.squamous LM Ql (Urine sed) 0 SEEN /hpf 0-5 [facility] Total proteinOrdered By: Martha Wilson on 05-03-2025 Protein [Mass/Vol] 7.3 g/dL 5.9-8.4 [facility] Urinalysis, Completeon 05-03 WBC >100 SEEN Normal 0-5 [facility] Comment on above: Order Comment: NO NEVAREZOR TO SPECIFY Performed By: #### L 400.0001 ####[facility] [address] [facility] [address] BACTERIA 0 SEEN Normal None Seen [facility] Comment on above: Order Comment: NO NEVAREZOR TO SPECIFY Performed By: #### L 400.0001 ####[facility] [address] [place], [address] EPI,SQUAMOUS 0 SEEN Normal [address] [place] [address] Comment on above: Order Comment: NO NEVAREZOR TO SPECIFY Performed By: #### L 400.0001 ####[facility] [address] [place], [address] Mucus Ql (Urine sed) 0 SEEN Normal [facility] Comment on above: Order Comment: NO NEVAREZOR TO SPECIFY Performed By: #### L 400.0001 ####[facility] [address] [place], [address] RBC 0 SEEN Normal 0-[address] [place] [address] Comment on above: Order Comment: COLLE CTOR TO SPECIFY Performed By: #### L 400.0001 ####[facility] [address] [place], [address] Urine clarityOrdered By: Martha Wilson on 05-03-2025 Clarity (U) Cloudy Clear [facility] Urine color determinationOrd ered By: Cinthia Wilson on 05-03-2025 Color (U) Yellow Yellow [facility] Urine cultureOrdered By: Martha Wilson on 05-03-2025 Bacteria identified Cx Nom (U) Staphylococcus aureus Abnormal [facility] Urine glucose detectionOrder ed By: Cinthia Wilson on 05-03-2025 Glucose Ql (U) 250 mg/dl High Normal [facility] Urine leukocyte esterase det ection by dipstickOrdered By: Cinthia Wilson on 05-03-2025 Leukocyte esterase Test strip Ql (U) 500 /ul High Negative [facility] Urine pHOrdered By: Cinthia massey on 05-03-2025 pH (U) 6.0 [pH] 5.0 - 8.0 [facility] Urine sediment bacteria coun t by microscopy (number/high power field)Ordered By: Cinthia Wilson on 05-03-2025 Bacteria LM.HPF (Urine sed) [#/Area] 0 /[HPF] None Seen [facility] Urine specific gravity measu rementOrdered By: Cinthia Wilson on 05-03-2025 Specific gravity (U) [Rel density] 1.010 1.002-1.030 [facility] Urine urobilinogen measureme ntOrdered By: Cinthia Wilson on 05-03-2025 Urobilinogen Ql (U) Normal mg/dl Normal [facility] White blood cell (WBC) count Ordered By: Cinthia Wilson on 05-03-2025 WBC (Bld) [#/Vol] 9.6 10*3/uL 4.4-11.0 [facility] White blood cell countOrdere d By: Cinthia Wilson on 05-03-2025 White blood cell count >100 SEEN /hpf 0-5 [facility] Bilirubin Test strip Ql (U)O rdered By: Linden Chavez on 04-26-2025 Bilirubin Ql (U) Negative Negative [facility] Ketones Test strip Ql (U)Ord ered By: Linden Chavez on 04-26-2025 Ketones Ql (U) Negative Negative [facility] Microalb:Creat Ratio,Random URon 04-26-2025 Creatinine [Mass/Vol] 31.70 mg/dL Low 39.00-259.00 [facility] Comment on above: Performed By: #### L 502.0250, L400.2010 ####[facility] [address] [place], [address] MALB:CREAT 564.7 mg/g CRE Normal [facility] Comment on above: Performed By: #### L 502.0250, L400.2010 ####[facility] [address] [place], [address] MICROALBUMIN,UR 179.0 mg/L Normal NO RANGE EST. [facility] Comment on above: Performed By: #### L 502.0250, L400.2010 ####[facility] [address] [place], [address] Nitrite Test strip Ql (U)Ord ered By: Linden Chavez on 04-26-2025 Nitrite Ql (U) Negative Negative [facility] Protein Test strip Ql (U)Ord ered By: Linden Chavez on 04-26-2025 Protein Ql (U) 100 mg/dl High Negative [facility] Random urine creatinine yayo urement (mass/volume)Ordered By: Linden Chavez on 04-26-2025 Creatinine Unsp time (U) [Mass/Vol] 31.70 mg/dL Low 39.00-259.00 [facility] Urinalysis, Routine (Dipstic k)on 04-26-2025 BILIRUBIN URINE Negative Normal Negative [facility] Comment on above: Order Comment: MIACL BRIDGET CATCH Performed By: #### L 502.0250, L400.2010 ####[facility] [address] [place], [address] Clarity (U) Cloudy Normal Clear [facility] Comment on above: Order Comment: MIACL BRIDGET CATCH Performed By: #### L 502.0250, L400.2010 ####[facility] [address] [place], [address] Color (U) Yellow Normal Yellow [facility] Comment on above: Order Comment: MIACL BRIDGET CATCH Performed By: #### L 502.0250, L4.2010 ####[facility] [address] [place], [address] GLUCOSE, UR 1000 mg/dl Abnormal Normal [facility] Comment on above: Order Comment: MIACL BRIDGET CATCH Performed By: #### L 502.0250, L4 ####[facility] [address] [place], [address] KETONE UR Negative Normal Negative [facility] Comment on above: Order Comment: MIACL BRIDGET CATCH Performed By: #### L 502.0250, L4 ####[facility] [address] [place], [address] LEUK ESTERASE 500 /ul Abnormal Negative [facility] Comment on above: Order Comment: MIACL BRIDGET CATCH Performed By: #### L 502.0250, L400 ####[facility] [address] [place], [address] Nitrite Ql (U) Negative Normal Negative [facility] Comment on above: Order Comment: MIACL BRIDGET CATCH Performed By: #### L 502.0250, L400 ####[facility] [address] [place], [address] OCCULT BLOOD-UR 150 /ul Abnormal Negative [facility] Comment on above: Order Comment: MIACL BRIDGET CATCH Performed By: #### L 502.0250, L400 ####[facility] [address] [place], [address] pH UR 7.0 Normal 5.0 - 8.0 [facility] Comment on above: Order Comment: MIACL BRIDGET CATCH Performed By: #### L 502.0250, L400.2010 ####[facility] [address] [place], [address] PROT DIPSTX 100 mg/dl Abnormal Negative [facility] Comment on above: Order Comment: MIACL BRIDGET CATCH Performed By: #### L 502.0250, L400.2010 ####[facility] [address] [place], [address] SP.GR. DIPSTX 1.010 Normal 1.002-1.030 [facility] Comment on above: Order Comment: MIACL BRIDGET CATCH Performed By: #### L 502.0250, L400.2010 ####[facility] [address] [place], [address] UROBILI Normal Normal Normal [facility] Comment on above: Order Comment: MIACL BRIDGET CATCH Performed By: #### L 502.0250, L400.2010 ####[facility] [address] [place], [address] Urine albumin measurement wi th detection limit of 20 mg/L or less (mass/volume)Ordered By: Linden Chavez on 04-26-2025 Albumin DL <= 20 mg/L (U) [Mass/Vol] 179.0 mg/L NO RANGE EST. [facility] Urine clarityOrdered By: Noemy Chavez on 04-26-2025 Clarity (U) Cloudy Clear [facility] Urine color determinationOrd ered By: Linden Chavez on 04-26-2025 Color (U) Yellow Yellow [facility] Urine glucose detectionOrder ed By: Linden Chavez on 04-26-2025 Glucose Ql (U) 1000 mg/dl High Normal [facility] Urine leukocyte esterase det ection by dipstickOrdered By: Linden Chavez on 04-26-2025 Leukocyte esterase Test strip Ql (U) 500 /ul High Negative [facility] Urine pHOrdered By: Linden Jamilwill sebastianlazaro on 04-26-2025 pH (U) 7.0 [pH] 5.0 - 8.0 [facility] Urine specific gravity measu rementOrdered By: Linden Scott on 04-26-2025 Specific gravity (U) [Rel density] 1.010 1.002-1.030 [facility] Urine urobilinogen measureme ntOrdered By: Linden Chavez on 04-26-2025 Urobilinogen Ql (U) Normal mg/dl Normal [facility] Celiac Disease Profileon ENDOMYSIAL IGA Negative Normal Negative [facility] Comment on above: Performed By: #### L 501.9910, L3410.2400, L101.9900, L501.6710, L501.9985, L3890.6301, L500.3400, L500.4100, L501.9520 ####[facility] [address] [place], [address] IMMUNOGLOB A QN 364 mg/dL Normal 61-437 [facility] Comment on above: Result Comment: Perf ormed at: - [place] [place] [id number] Director: Rasheed Denney PhD, Phone: [phone] Performed By: #### L 501.9910, L3410.2400, L101.9900, L501.6710, L501.9985, L3890.6301, L500.3400, L500.4100, L501.9520 ####[facility] [address] [place], [address] tTG IGA <2 Normal 0-3 [facility] Comment on above: Result Comment: Nega tive 0 - 3 Weak Positive 4 - 10 Positive >10 Tissue Transglutaminase (tTG) has been identified as the endomysial antigen. Studies have demonstr- ated that endomysial IgA antibodies have over 99% specificity for gluten sensitive enteropathy. Performed By: #### L 501.9910, L3410.2400, L101.9900, L501.6710, L501.9985, L3890.6301, L500.3400, L500.4100, L501.9520 ####[facility] [address] [place], [place], [phone] Bilirubin directOrdered By: Linden Chavez on 04-23-2025 Bilirubin.direct [Mass/Vol] 0.16 mg/dL 0.00-0.30 [facility] Bilirubin, totalOrdered By: Linden Chavez on 04-23-2025 Bilirubin [Mass/Vol] 0.40 mg/dL 0.00-1.30 [facility] CRPon 04-23-2025 C-REACTIVE PROT 15.50 mg/L High 0.0-3.0 [facility] Comment on above: Performed By: #### L 501.9910, L3410.2400, L101.9900, L501.6710, L501.9985, L3890.6301, L500.3400, L500.4100, L501.9520 ####[facility] [address] [place], [place], [phone] Calculated very low density lipoprotein (VLDL) cholesterol measurementOrdered By: Linden Chavez on 04-23-2025 Calculated very low density lipoprotein (VLDL) cholesterol measurement 37 mg/dL 5-40 [facility] Erythrocyte Sed Rateon 04-23 SED RATE 12 mm/hr Normal 0-20 [facility] Comment on above: Performed By: #### L 501.9910, L3410.2400, L101.9900, L501.6710, L501.9985, L3890.6301, L500.3400, L500.4100, L501.9520 ####[facility] [address] [place], [place], [phone] Erythrocyte sedimentation ra teOrdered By: Linden Chavez on 04-23-2025 ESR (Bld) [Velocity] 12 mm/h 0-20 [facility] Hemoglobin A1con 04-23-2025 HbA1c (Bld) [Mass fraction] 11.6 % High <=5.6 [facility] Comment on above: Result Comment: Norm al < 5.7 % Prediabetic 5.7 - 6.4 % Diabetic >or= 6.5 % Please note range changes. Performed By: #### L 501.9910, L3410.2400, L101.9900, L501.6710, L501.9985, L3890.6301, L500.3400, L500.4100, L501.9520 ####[facility] [address] [place], [address] Hemoglobin A1c percentageOrd ered By: Linden Chavez on 04-23-2025 HbA1c (Bld) [Mass fraction] 11.6 % High <5.7 [facility] Comment on above: Normal < 5.7 % Predi abetic 5.7 - 6.4 % Diabetic >or= 6.5 % Please note range changes. Hepatitis C Antibodyon 04-23 Hepatitis C Ab Non-Reactive Normal Nonreactive [facility] Comment on above: Result Comment: Reac tive: Presumptive evidence of antibodies to HCV. [facility] testing.Non-Reactive: Antibodies to HCV were not detected; does notexclude the possibility of exposure to HCVReactive Results are presumptive evidence of antibodies toHCV. Follow CDC recommendations for supplemental testing.Order confirmation testing: HCV Quant by PCR testing -[facility]CV[facility] #[id number] Non Reactive: < 0.8 Equivocal: >/= 0.8 to < 1.0 Reactive: >/= 1.0The CDC requires that a reactive/equivocal HCV antibodyresult be sent out for confirmation. HCV Quant by PCRtesting. Performed By: #### L 501.9910, L3410.2400, L101.9900, L501.6710, L501.9985, L3890.6301, L500.3400, L500.4100, L501.9520 ####[facility] [address] [place], [place], [phone] LDL calc ser/plasOrdered By: Linden Chavez on 04-23-2025 Cholesterol in LDL [Mass/Vol] 100 mg/dL [facility] Comment on above: Hnnueulztt=989-636 m g/dL & Higher Ouky=084 mg/dL or greater Laboratory - Chemistry and C hemistry - challengeOrdered By: Linden Chavez on 04-23-2025 AST [Catalytic activity/Vol] 11 U/L <38 [facility] Lipid Profileon 04-23-2025 CHOL:HDL 5.04 Normal [facility] Comment on above: Performed By: #### L 501.9910, L3410.2400, L101.9900, L501.6710, L501.9985, L3890.6301, L500.3400, L500.4100, L501.9520 ####[facility] [address] [place], [address] Cholesterol [Mass/Vol] 171 mg/dL Normal <=200 [facility] Comment on above: Result Comment: Chol esterol level, Desirable <200 mg/dLBorderline high cholesterol 200-239 mg/dLHigh cholesterol >=240 mg/dLRecommendations of the NCEP Adult Treatment Panel for thefollowing risk-cutoff thresholds for the [place] Americanpulation. Performed By: #### L 501.9910, L3410.2400, L101.9900, L501.6710, L501.9985, L3890.6301, L500.3400, L500.4100, L501.9520 ####[facility] [address] [place], [place], [phone] Cholesterol in HDL [Mass/Vol] 34 mg/dL Low [facility] Comment on above: Result Comment: Adeline onal Cholesterol Education Program (NCEP) guidelines:<40 mg/dL: Low HDL-cholesterol (major risk factor for CHD)>= 60 mg/dL: High HDL-cholesterol (negative risk factor forCHD)HDL-cholesterol is affected by a number of factors, e.g.smoking, exercise, hormones, sex and age. Performed By: #### L 501.9910, L3410.2400, L101.9900, L501.6710, L501.9985, L3890.6301, L500.3400, L500.4100, L501.9520 ####[facility] [address] [place], [address] Cholesterol in LDL [Mass/Vol] 100 mg/dL Normal [facility] Comment on above: Result Comment: Bord crbxng=373-846 mg/dL Higher Flga=527 mg/dL or greater Performed By: #### L 501.9910, L3410.2400, L101.9900, L501.6710, L501.9985, L3890.6301, L500.3400, L500.4100, L501.9520 ####[facility] [address] [place], [address] Cholesterol in VLDL [Mass/Vol] 37 mg/dL Normal 5-40 [facility] Comment on above: Performed By: #### L 501.9910, L3410.2400, L101.9900, L501.6710, L501.9985, L3890.6301, L500.3400, L500.4100, L501.9520 ####[facility] [address] [place], [place], [phone] Triglyceride [Mass/Vol] 187 mg/dL Normal [facility] Comment on above: Result Comment: The drugs N-Acetylcysteine and Metamizole may falselydepress this assay.Normal range: <150 mg/dLBorderline High: 150-199 mg/dLHigh: 200-499 mg/dLVery High: >500 mg/dL Performed By: #### L 501.9910, L3410.2400, L101.9900, L501.6710, L501.9985, L3890.6301, L500.3400, L500.4100, L501.9520 ####[facility] [address] [place], [place], [phone] Liver Profileon 04-23-2025 Albumin [Mass/Vol] 3.9 g/dL Normal 3.4-4.8 [facility] Comment on above: Performed By: #### L 501.9910, L3410.2400, L101.9900, L501.6710, L501.9985, L3890.6301, L500.3400, L500.4100, L501.9520 ####[facility] [address] [place], [address] ALK PHOS 102 U/L Normal 40-129 [facility] Comment on above: Performed By: #### L 501.9910, L3410.2400, L101.9900, L501.6710, L501.9985, L3890.6301, L500.3400, L500.4100, L501.9520 ####[facility] [address] [place], [place], [phone] ALT [Catalytic activity/Vol] 8 U/L Normal <=46 [facility] Comment on above: Performed By: #### L 501.9910, L3410.2400, L101.9900, L501.6710, L501.9985, L3890.6301, L500.3400, L500.4100, L501.9520 ####[facility] [address] [place], [address] AST [Catalytic activity/Vol] 11 U/L Normal <=37 [facility] Comment on above: Performed By: #### L 501.9910, L3410.2400, L101.9900, L501.6710, L501.9985, L3890.6301, L500.3400, L500.4100, L501.9520 ####[facility] [address] [place], [place], [phone] Bilirubin [Mass/Vol] 0.40 mg/dL Normal 0.00-1.30 [facility] Comment on above: Performed By: #### L 501.9910, L3410.2400, L101.9900, L501.6710, L501.9985, L3890.6301, L500.3400, L500.4100, L501.9520 ####[facility] [address] [place], [place], [phone] Bilirubin.direct [Mass/Vol] 0.16 mg/dL Normal 0.00-0.30 [facility] Comment on above: Performed By: #### L 501.9910, L3410.2400, L101.9900, L501.6710, L501.9985, L3890.6301, L500.3400, L500.4100, L501.9520 ####[facility] [address] [place], [place], [phone] Globulin (S) [Mass/Vol] 3.0 g/dL Normal 2.2-4.2 [facility] Comment on above: Performed By: #### L 501.9910, L3410.2400, L101.9900, L501.6710, L501.9985, L3890.6301, L500.3400, L500.4100, L501.9520 ####[facility] [address] [place], [place], [phone] T PROT 6.9 g/dL Normal 5.9-8.4 [facility] Comment on above: Performed By: #### L 501.9910, L3410.2400, L101.9900, L501.6710, L501.9985, L3890.6301, L500.3400, L500.4100, L501.9520 ####[facility] [address] [place], [place], [phone] No Panel InformationOrdered By: Linden Chavez on 04-23-2025 11 U/L <38 [facility] PSA,Total - Annual Screenon 04-23-2025 PSA,TOT SCREEN 0.35 ng/mL Normal 0.02-4.00 [facility] Comment on above: Result Comment: This test was performed using the [employer] tPSAmethod. Measured values of a patient??sample can varydepending on the testing procedure used. PSA valuesdetermined on patient samples by different testingprocedures cannot be used interchangeably. If there is achange in PSA assays while monitoring therapy, sequentialtesting should be performed to confirm baseline values. Performed By: #### L 501.9910, L3410.2400, L101.9900, L501.6710, L501.9985, L3890.6301, L500.3400, L500.4100, L501.9520 ####[facility] [address] [place], [address] Screening total cholesterol/ high density lipoprotein (HDL) cholesterol ratioOrdered By: Linden Chavez on 04-23-2025 Cholesterol.total/Carol sterol in HDL [Mass ratio] 5.04 {ratio} [facility] Serum globulin measurementOr dered By: Linden Chavez on 04-23-2025 Globulin (S) [Mass/Vol] 3.0 g/dL 2.2-4.2 [facility] Serum or plasma C reactive p rotein measurement (mass/volume)Ordered By: Linden Chavez on 04-23-2025 CRP [Mass/Vol] 15.50 mg/L High 0.0-3.0 [facility] Serum or plasma IgA measurem ent (mass/volume)Ordered By: Linden Chavez on 04-23-2025 IgA [Mass/Vol] 364 mg/dL 61-437 [facility] Comment on above: Performed at: [address] [id number] Director: Rasheed Denney PhD, Phone: [phone] Serum or plasma alanine wagoner otransferase (ALT) measurementOrdered By: Linden Chavez on 04-23-2025 ALT [Catalytic activity/Vol] 8 U/L <47 [facility] Serum or plasma albumin yayo urement (mass/volume)Ordered By: Linden Chavez on 04-23-2025 Albumin [Mass/Vol] 3.9 g/dL 3.4-4.8 [facility] Serum or plasma alkaline andrzej sphatase measurementOrdered By: Linden Chavez on 04-23-2025 ALP [Catalytic activity/Vol] 102 U/L 40-129 [facility] Serum or plasma cholesterol in HDL measurement (mass/volume)Ordered By: Linden Chavez on 04-23-2025 Cholesterol in HDL [Mass/Vol] 34 mg/dL Low >40 [facility] Comment on above: National Cholesterol Education Program (NCEP) guidelines:<40 mg/dL: Low HDL-cholesterol (major risk factor for CHD)>= 60 mg/dL: High HDL-cholesterol (negative risk factor for CHD)HDL-cholesterol is affected by a number of factors, e.g. smoking, exercise, hormones, sex and age. Serum or plasma cholesterol measurement (mass/volume)Ordered By: Linden Chavez on 04-23-2025 Cholesterol [Mass/Vol] 171 mg/dL <201 [facility] Comment on above: Cholesterol level, D esirable <200 mg/dLBorderline high cholesterol 200-239 mg/dLHigh cholesterol >=240 mg/dLRecommendations of the NCEP Adult Treatment Panel for the following risk-cutoff thresholds for the [place] population. Serum tissue transglutaminas e (tTG) IgA antibody assay (units/volume)Ordered By: Linden Chavez on 04-23-2025 tTG IgA Qn (S) <2 U/mL 0-3 [facility] Comment on above: Negative 0 - 3 Weak Positive 4 - 10 Positive >10 Tissue Transglutaminase (tTG) has been identified as the endomysial antigen. Studies have demonstr- ated that endomysial IgA antibodies have over 99% specificity for gluten sensitive enteropathy. TSH DL <= 0.005 mIU/L QnOrde red By: Linden Chavez on 04-23-2025 TSH Qn 13.600 uIU/mL High 0.300-4.200 [facility] Thyroid Stim Hormone (TSH)on 04-23-2025 TSH 13.600 uIU/mL High 0.300-4.200 [facility] Comment on above: Performed By: #### L 501.9910, L3410.2400, L101.9900, L501.6710, L501.9985, L3890.6301, L500.3400, L500.4100, L501.9520 ####[facility] [address] [place], [place], [address] Total proteinOrdered By: Noemy Chavez on 04-23-2025 Protein [Mass/Vol] 6.9 g/dL 5.9-8.4 [facility] Triglycerides measurementOrd ered By: Linden Scott on 04-23-2025 Triglyceride [Mass/Vol] 187 mg/dL <199 [facility] Comment on above: The drugs N-Acetylcy steine and Metamizole may falsely depress this assay. Normal range: <150 mg/dLBorderline High: 150-199 mg/dLHigh: 200-499 mg/dLVery High: >500 mg/dL Emergency Department Summary on 04-21-2025 Emergency Department Summary Normal [facility] Knee 4 or More Viewson 04-21 Knee 4 or More Views Normal [facility] Emergency Department Summary on 03-26-2025 Emergency Department Summary Normal [facility] Urine Cultureon 02-18-2025 URC Normal [facility] Comment on above: Performed By: #### M 100.2206 ####[facility] [address] [place], [place], [phone] Absolute lymphocyte countOrd ered By: Johann Lemons on 02-16-2025 Lymphocytes Auto (Unsp spec) [#/Vol] 1.39 10*3/uL 0.83-4.51 [facility] Absolute neutrophil countOrd ered By: Johann Lemons on 02-16-2025 Neutrophils (Bld) [#/Vol] 6.4 10*3/uL 2.0-7.7 [facility] Absolute neutrophil count 6.4 X10^3/uL 2.0-7.7 [facility] Anion gap [Moles/Vol]Ordered By: Johann Lemons on 02-16-2025 Anion gap in Serum or Plasma 10 5-15 [facility] Anion gap in Serum or Plasma Ordered By: Johann Lemons on 02-16-2025 Anion gap [Moles/Vol] 10 mmol/L 5-15 [facility] Automated lymphocyte count a s percentage of total leukocytesOrdered By: Johann Lemons on 02-16-2025 Lymphocytes/100 WBC Auto (Unsp spec) 16.0 % Low 19-41 [facility] BUN/creatinine ratioOrdered By: Johann Lemons on 02-16-2025 Urea nitrogen/Creatinine [Mass ratio] 16.0 mg/mg 10- [facility] BUN/creatinine ratio 16.0 RATIO 10-20 [facility] Base excess Calc (BldV) [Mol es/Vol]Ordered By: Johann Lemons on 02-16-2025 Venous blood base excess measurement 8 mmol/L High -1.0-3.5 [facility] Basic Metabolic Profile (BMP )on 02-16-2025 BUN/CRE 16.0 RATIO Normal - [facility] Comment on above: Performed By: #### L 100.0100, L500.2500, L501.6901 ####[facility] [address] [place], [address] Calcium [Mass/Vol] 9.2 mg/dL Normal 7.6-11.0 [facility] Comment on above: Performed By: #### L 100.0100, L500.2500, L501.6901 ####[facility] [address] [place], [address] Chloride [Moles/Vol] 94 mmol/L Low 98-108 [facility] Comment on above: Performed By: #### L 100.0100, L500.2500, L501.6901 ####[facility] [address] [place], [address] CO2 [Moles/Vol] 27.2 mmol/L Normal 21.0-32.0 [facility] Comment on above: Performed By: #### L 100.0100, L500.2500, L501.6901 ####[facility] [address] [place], [address] Creatinine [Mass/Vol] 0.90 mg/dL Normal 0.70-1.20 [facility] Comment on above: Performed By: #### L 100.0100, L500.2500, L501.6901 ####[facility] [address] [place], [address] ECRCL 104.50 ml/min Normal 50-250 [facility] Comment on above: Performed By: #### L 100.0100, L500.2500, L501.6901 ####[facility] [address] [place], [address] GAP 10 Normal 5-15 [facility] Comment on above: Performed By: #### L 100.0100, L500.2500, L501.6901 ####[facility] [address] [place], [address] GFR/1.73 sq M.predicted among non-blacks MDRD (S/P/Bld) [Vol rate/Area] 96 mL/min/{1.73_m2} Normal >60 [facility] Comment on above: Result Comment: mL/m in/1.73m2 CKD-EPI Creatinine Equation (2020) Performed By: #### L 100.0100, L500.2500, L501.6901 ####[facility] [address] [place], [address] Glucose [Mass/Vol] 453 mg/dL Invalid Interpretation Code 70-99 [facility] Comment on above: Result Comment: Crit ical Result(s) Called at 0505: by:?? NBURNS TO ALAMMERSResults read back by same. Performed By: #### L 100.0100, L500.2500, L501.6901 ####[facility] [address] [place], [address] Potassium [Moles/Vol] 3.9 mmol/L Normal 3.3-5.1 [facility] Comment on above: Performed By: #### L 100.0100, L500.2500, L501.6901 ####[facility] [address] [place], [address] Sodium [Moles/Vol] 131 mmol/L Low 133-145 [facility] Comment on above: Performed By: #### L 100.0100, L500.2500, L501.6901 ####[facility] [address] [place], [address] Urea nitrogen [Mass/Vol] 14 mg/dL Normal - [facility] Comment on above: Performed By: #### L 100.0100, L500.2500, L501.6901 ####[facility] [address] [place], [address] Basophil percentageOrdered B y: Johann Lemons on 02-16-2025 Basophils/100 WBC (Bld) 0.5 % 0-1 [facility] Basophil percentage 0.5 % 0-1 [facility] Bedside Glucoseon 02-16-2025 FINGERSTICK GLU 340 mg/dL High 74-106 [facility] Comment on above: Result Comment: TAYLOR GEMENT OF PATIENT CARE PER NURSING PROTOCOL Performed By: #### L 501.080 ####[facility] [address] [place], [address] FINGERSTICK GLU 341 mg/dL High 74-106 [facility] Comment on above: Result Comment: TAYLOR GEMENT OF PATIENT CARE PER NURSING PROTOCOL Performed By: #### L 501.080 ####[facility] [address] [place], [address] FINGERSTICK GLU 414 mg/dL High 74-106 [facility] Comment on above: Result Comment: TAYLOR GEMENT OF PATIENT CARE PER NURSING PROTOCOL Performed By: #### L 501.080 ####[facility] [address] [place], [address] Beta hydroxybutyrate [Mass/V ol]Ordered By: Johann Lemons on 02-16-2025 Beta-hydroxybutyrate 0.1 mmol/L 0.0-0.3 [facility] Beta-Hydroxbytyrateon 2024 BETA-HYDROXYBUT 0.1 mmol/L Normal 0.0-0.3 [facility] Comment on above: Performed By: #### L 100.0100, L500.2500, L501.6901 ####[facility] [address] [place], [address] Beta-hydroxybutyrateOrdered By: Johann Lemons on 02-16-2025 Beta hydroxybutyrate [Mass/Vol] 0.1 mmol/L 0.0-0.3 [facility] Bilirubin Test strip Ql (U)O rdered By: Johann Lemons on 02-16-2025 Bilirubin Ql (U) Negative Negative [facility] CBC W/Diff, Automatedon 01-29 Absolute Lymph 1.39 X10 3/uL Normal 0.83-4.51 [facility] Comment on above: Performed By: #### L 100.0100, L500.2500, L501.6901 ####[facility] [address] [place], [address] Absolute Neut 6.4 X10 3/uL Normal 2.0-7.7 [facility] Comment on above: Performed By: #### L 100.0100, L500.2500, L501.6901 ####[facility] [address] [place], [address] Basophils/100 WBC (Bld) 0.5 % Normal 0-1 [facility] Comment on above: Performed By: #### L 100.0100, L500.2500, L501.6901 ####[facility] [address] [place], [address] Eosinophils/100 WBC (Bld) 2.4 % Normal 0-5 [facility] Comment on above: Performed By: #### L 100.0100, L500.2500, L501.6901 ####[facility] [address] [place], [address] Erythrocyte distribution width (RBC) [Ratio] 12.9 % Normal 11.6-14.6 [facility] Comment on above: Performed By: #### L 100.0100, L500.2500, L501.6901 ####[facility] [address] [place], [address] Hematocrit (Bld) [Volume fraction] 34.5 % Low 40-54 [facility] Comment on above: Performed By: #### L 100.0100, L500.2500, L501.6901 ####[facility] [address] [place], [address] Hemoglobin (Bld) [Mass/Vol] 12.2 g/dL Low 13.0-16.5 [facility] Comment on above: Performed By: #### L 100.0100, L500.2500, L501.6901 ####[facility] [address] [place], [address] IG% 0.500 Normal 0.0-0.9 [facility] Comment on above: Result Comment: IG% - Immature Granulocytes (promyelocytes, myelocytes andmetamyelocytes) > 1% indicates that a LEFT SHIFT is Present. Performed By: #### L 100.0100, L500.2500, L501.6901 ####[facility] [address] [place], [address] Lymphocytes/100 WBC (Bld) 16.0 % Low 19-41 [facility] Comment on above: Performed By: #### L 100.0100, L500.2500, L501.6901 ####[facility] [address] [place], [address] MCH (RBC) [Entitic mass] 28.0 pg Normal 27.0-32.0 [facility] Comment on above: Performed By: #### L 100.0100, L500.2500, L501.6901 ####[facility] [address] [place], [address] MCHC (RBC) [Mass/Vol] 35.4 g/dL Normal 32-36 [facility] Comment on above: Performed By: #### L 100.0100, L500.2500, L501.6901 ####[facility] [address] [place], [address] MCV (RBC) [Entitic vol] 79.3 fL Low 80-94 [facility] Comment on above: Performed By: #### L 100.0100, L500.2500, L501.6901 ####[facility] [address] [place], [address] Monocytes/100 WBC (Bld) 7.1 % Normal 0-10 [facility] Comment on above: Performed By: #### L 100.0100, L500.2500, L501.6901 ####[facility] [address] [place], [address] Neutrophils/100 WBC (Bld) 73.5 % High 47-70 [facility] Comment on above: Performed By: #### L 100.0100, L500.2500, L501.6901 ####[facility] [address] [place], [address] Nucleated RBC (Bld) [#/Vol] 0 10*3/uL Normal 0-5 [facility] Comment on above: Performed By: #### L 100.0100, L500.2500, L501.6901 ####[facility] [address] [place], [address] Platelet mean volume (Bld) [Entitic vol] 8.8 fL Normal 6.2-12.0 [facility] Comment on above: Performed By: #### L 100.0100, L500.2500, L501.6901 ####[facility] [address] [place], [address] Platelets (Bld) [#/Vol] 230 10*3/uL Normal 150-450 [facility] Comment on above: Performed By: #### L 100.0100, L500.2500, L501.6901 ####[facility] [address] [place], [address] RBC (Bld) [#/Vol] 4.35 10*6/uL Low 4.6-6.2 [facility] Comment on above: Performed By: #### L 100.0100, L500.2500, L501.6901 ####[facility] [address] [place], [address] RDW SD 36.9 fl Normal 35.1-43.9 [facility] Comment on above: Performed By: #### L 100.0100, L500.2500, L501.6901 ####[facility] [address] [place], [address] WBC (Bld) [#/Vol] 8.7 10*3/uL Normal 4.4-11.0 [facility] Comment on above: Performed By: #### L 100.0100, L500.2500, L501.6901 ####[facility] [address] [place], [address] CO2 (BldV) [Moles/Vol]Ordere d By: Johann Lemons on 02-16-2025 CO2 [Moles/Vol] 34 mmol/L High 23-33 [facility] Venous blood total carbon dioxide measurement 34 mmol/L High 23-33 [facility] CO2 (BldV) [Partial pressure ]Ordered By: Johann Lemons on 02-16-2025 Venous blood partial pressure of carbon dioxide measurement 54.5 mmHg High 41-51 [facility] Calcium [Mass/Vol]Ordered By : Johann Lemons on 02-16-2025 Serum or plasma calcium measurement (mass/volume) 9.2 mg/dL 7.6-11.0 [facility] Carbon dioxide, total [Moles /volume] in Central venous bloodOrdered By: Johann Lemons on 02-16-2025 CO2 [Moles/Vol] 27.2 mmol/L 21.0-32.0 [facility] Carbon dioxide, total [Moles/volume] in Central venous blood 27.2 mmol/L 21.0-32.0 [facility] Chest PA and Lateralon 02-16 Chest PA and Lateral Normal [facility] Chloride assayOrdered By: Julia Lemons on 02-16-2025 Chloride [Moles/Vol] 94 mmol/L Low 98-108 [facility] Chloride assay 94 mmol/L Low 98-108 [facility] Clarity (U)Ordered By: Roland Lemons on 02-16-2025 Urine clarity Turbid Clear [facility] Color (U)Ordered By: Johann Lemons on 02-16-2025 Urine color determination Yellow Yellow [facility] Creatinine [Mass/Vol]Ordered By: Johann Lemons on 02-16-2025 Serum creatinine measurement (mass/volume) 0.90 mg/dL 0.70-1.20 [facility] Emergency Department Summary on 02-16-2025 Emergency Department Summary Normal [facility] Eosinophil percentageOrdered By: Johann Lemons on 02-16-2025 Eosinophils/100 WBC (Bld) 2.4 % 0-5 [facility] Eosinophil percentage 2.4 % 0-5 [facility] Erythrocyte distribution wid th (RBC) [Ratio]Ordered By: Johann Lemons on 02-16-2025 Erythrocyte distribution width ratio 12.9 % 11.6-14.6 [facility] Erythrocyte distribution width standard deviation 36.9 fl 35.1-43.9 [facility] Erythrocyte distribution wid th ratioOrdered By: Johann Lemons on 02-16-2025 Erythrocyte distribution width (RBC) [Ratio] 12.9 % 11.6-14.6 [facility] Erythrocyte distribution wid th standard deviationOrdered By: Johann Lemons on 02-16-2025 Erythrocyte distribution width (RBC) [Ratio] 36.9 fl 35.1-43.9 [facility] Estimation of creatinine edinson aranceOrdered By: Johann Lemons on 02-16-2025 Estimation of creatinine clearance 104.50 ml/min 50-250 [facility] GFR/1.73 sq M.predicted mari g non-blacks MDRD (S/P/Bld) [Vol rate/Area]Ordered By: Johann Lemons on 02-16-2025 Glomerular filtration rate (GFR) estimation/1.73 sq m using serum, plasma, or whole b 96 >60 [facility] Glomerular filtration rate ( GFR) estimation/1.73 sq m using serum, plasma, or whole bOrdered By: Johann Lemons on 02-16-2025 GFR/1.73 sq M.predicted among non-blacks MDRD (S/P/Bld) [Vol rate/Area] 96 mL/min/{1.73_m2} >60 [facility] Comment on above: mL/min/1.73m2 CKD-EP I Creatinine Equation (2020) Glucose Ql (U)Ordered By: Julia Lemons on 02-16-2025 Urine glucose detection 1000 mg/dl High Normal [facility] Glucose [Mass/Vol]Ordered By : Johann Lemons on 02-16-2025 Serum glucose measurement (mass/volume) 453 mg/dL High 70-99 [facility] Glucose measurement at bedsi deOrdered By: Johann Lemons on 02-16-2025 Glucose [Mass/Vol] 340 mg/dL High 74-106 [facility] Comment on above: MANAGEMENT OF PATIEN T CARE PER NURSING PROTOCOL Glucose measurement at bedside 341 mg/dL High 74-106 [facility] Hematocrit Auto (Bld) [Volum e fraction]Ordered By: Johann Lemons on 02-16-2025 Hematocrit (Bld) [Volume fraction] 34.5 % Low 40-54 [facility] Automated blood hematocrit (percentage) 34.5 % Low 40-54 [facility] Hemoglobin measurementOrdere d By: Johann Lemons on 02-16-2025 Hemoglobin (Bld) [Mass/Vol] 12.2 g/dL Low 13.0-16.5 [facility] Hemoglobin measurement 12.2 g/dL Low 13.0-16.5 [facility] Immature granulocytes/100 WB C Auto (Bld)Ordered By: Johann Lemons on 02-16-2025 Immature granulocytes/100 WBC (Bld) 0.500 % 0.0-0.9 [facility] Comment on above: IG% - Immature Granu locytes (promyelocytes, myelocytes and metamyelocytes) > 1% indicates that a LEFT SHIFT is Present. Automated immature granulocyte percentage 0.500 % 0.0-0.9 [facility] Ketones Test strip Ql (U)Ord ered By: Johann Lemons on 02-16-2025 Ketones Ql (U) Negative Negative [facility] Leukocyte esterase Test stri p Ql (U)Ordered By: Johann Lemons on 02-16-2025 Urine leukocyte esterase detection by dipstick 500 /ul High Negative [facility] Lymphocytes Auto (Unsp spec) [#/Vol]Ordered By: Johann Lemons on 02-16-2025 Absolute lymphocyte count 1.39 X10^3/uL 0.83-4.51 [facility] Lymphocytes/100 WBC Auto (Un sp spec)Ordered By: Johann Lemons on 02-16-2025 Automated lymphocyte count as percentage of total leukocytes 16.0 % Low 19-41 [facility] MCV (RBC) [Entitic vol]Order ed By: Johann Lemons on 02-16-2025 MCV (mean corpuscular volume) determination 79.3 fL Low 80-94 [facility] MCV (mean corpuscular volume ) determinationOrdered By: Johann Lemons on 02-16-2025 MCV (RBC) [Entitic vol] 79.3 fL Low 80-94 [facility] Mean corpuscular hemoglobin (MCH) determinationOrdered By: Johann Lemons on 02-16-2025 MCH (RBC) [Entitic mass] 28.0 pg 27.0-32.0 [facility] Mean corpuscular hemoglobin (MCH) determination 28.0 pg 27.0-32.0 [facility] Mean corpuscular hemoglobin concentration (MCHC) determinationOrdered By: Johann Lemons on 02-16-2025 MCHC (RBC) [Mass/Vol] 35.4 g/dL - [facility] Mean corpuscular hemoglobin concentration (MCHC) determination 35.4 g/dL -36 [facility] Mean platelet volume determi nationOrdered By: Johann Lemons on 02-16-2025 Platelet mean volume (Bld) [Entitic vol] 8.8 fL 6.2-12.0 [facility] Mean platelet volume determination 8.8 fl 6.2-12.0 [facility] Microscopic analysis of urin e for red blood cells (RBC)Ordered By: Johann Lemons on 02-16-2025 Microscopic analysis of urine for red blood cells (RBC) 0 SEEN /hpf 0-5 [facility] Microscopic analysis of urine for red blood cells (RBC) 0 SEEN /hpf [facility] Monocyte percentageOrdered B y: Johann Lemons on 02-16-2025 Monocytes/100 WBC (Bld) 7.1 % 0-10 [facility] Monocyte percentage 7.1 % 0-10 [facility] Mucus LM Ql (Urine sed)Order ed By: Johann Lemons on 02-16-2025 Mucus Ql (Urine sed) 0 SEEN /hpf [facility] Neutrophil percentageOrdered By: Johann Lemons on 02-16-2025 Neutrophils/100 WBC (Bld) 73.5 % High 47-70 [facility] Neutrophil percentage 73.5 % High 47-70 [facility] Nitrite Test strip Ql (U)Ord ered By: Johann Lemons on 02-16-2025 Nitrite Ql (U) Positive High Negative [facility] Urine nitrite test by dipstick Positive High Negative [facility] No Panel InformationOrdered By: Johann Lemons on 02-16-2025 Blood Gas Sample Site Not entered [facility] Blood Gas Specimen Type GRACY [facility] Oxygen Delivery Device Not entered [facility] GRACY [facility] Not entered [facility] Nucleated red blood cell per centageOrdered By: Johann Lemons on 02-16-2025 Nucleated RBC/100 WBC (Bld) [Ratio] 0 % 0-5 [facility] Nucleated red blood cell percentage 0 % 0-5 [facility] Oxygen (BldV) [Partial press ure]Ordered By: Johann Lemons on 02-16-2025 Venous blood partial pressure of oxygen measurement 46 mmHg High 25-40 [facility] Platelet countOrdered By: Julia Lemons on 02-16-2025 Platelets (Bld) [#/Vol] 230 10*3/uL 150-450 [facility] Platelet count 230 K/mm3 150-450 [facility] Potassium (Unsp spec) [Mass/ Vol]Ordered By: Johann Lemons on 02-16-2025 Potassium measurement (mass/volume) 3.9 mmol/L 3.3-5.1 [facility] Potassium measurement (mass/ volume)Ordered By: Johann Lemons on 02-16-2025 Potassium (Unsp spec) [Mass/Vol] 3.9 mmol/L 3.3-5.1 [facility] Protein Test strip Ql (U)Ord ered By: Johann Lemons on 02-16-2025 Protein Ql (U) 100 mg/dl High Negative [facility] Urine protein assay by test strip, semi-quantitative 100 mg/dl High Negative [facility] RBC Auto (Bld) [#/Vol]Ordere d By: Johann Lemons on 02-16-2025 RBC (Bld) [#/Vol] 4.35 10*6/uL Low 4.6-6.2 [facility] Automated blood erythrocyte count 4.35 M/mm3 Low 4.6-6.2 [facility] Serum creatinine measurement (mass/volume)Ordered By: Johann Lemons on 02-16-2025 Creatinine [Mass/Vol] 0.90 mg/dL 0.70-1.20 [facility] Serum glucose measurement (m ass/volume)Ordered By: Johann Lemons on 02-16-2025 Glucose [Mass/Vol] 453 mg/dL High 70-99 [facility] Comment on above: Critical Result(s) C alled at 0505: by: MARYAM OSUNA Results read back by same. Serum or plasma calcium yayo urement (mass/volume)Ordered By: Johann Lemons on 02-16-2025 Calcium [Mass/Vol] 9.2 mg/dL 7.6-11.0 [facility] Serum or plasma urea nitroge n measurement (mass/volume)Ordered By: Johann Lemons on 02-16-2025 Urea nitrogen [Mass/Vol] 14 mg/dL 02-16 [facility] Sodium levelOrdered By: Keith Lemons on 02-16-2025 Sodium [Moles/Vol] 131 mmol/L Low 133-145 [facility] Sodium level 131 mmol/L Low 133-145 [facility] Specific gravity (U) [Rel de nsity]Ordered By: Johann Lemons on 02-16-2025 Urine specific gravity measurement 1.010 1.002-1.030 [facility] Squamous epithelial cells de tection in urine sediment by light microscopyOrdered By: Johann Lemons on 02-16-2025 Epithelial cells.squamous LM Ql (Urine sed) 0 SEEN /hpf 0- [facility] Urea nitrogen [Mass/Vol]Orde red By: Johann Lemons on 02-16-2025 Serum or plasma urea nitrogen measurement (mass/volume) 14 mg/dL 02-16 [facility] Urinalysis, Completeon 02-16 WBC >100 SEEN Normal 0-5 [facility] Comment on above: Order Comment: CLEAN CATCH Performed By: #### L 400.0001 ####[facility] [address] [place], [address] BACTERIA 0 SEEN Normal None Seen [facility] Comment on above: Order Comment: CLEAN CATCH Performed By: #### L 400.0001 ####[facility] [address] [place], [address] EPI,SQUAMOUS 0 SEEN Normal [address] [place] [address] Comment on above: Order Comment: CLEAN CATCH Performed By: #### L 400.0001 ####[facility] [address] [place], [address] Mucus Ql (Urine sed) 0 SEEN Normal [facility] Comment on above: Order Comment: CLEAN CATCH Performed By: #### L 400.0001 ####[facility] [address] [place], [address] RBC 0 SEEN Normal 0-5 [facility] Comment on above: Order Comment: CLEAN CATCH Performed By: #### L 400.0001 ####[facility] [address] [place], [place], [id number] Urine blood detectionOrdered By: Johann Lemons on 02-16-2025 Urine blood detection 150 /ul High Negative [facility] Urine clarityOrdered By: Otoniel Lemons on 02-16-2025 Clarity (U) Turbid Clear [facility] Urine color determinationOrd ered By: Johann Lemons on 02-16-2025 Color (U) Yellow Yellow [facility] Urine cultureOrdered By: Otoniel Lemons on 02-16-2025 Bacteria identified Cx Nom (U) Staphylococcus aureus Abnormal [facility] Urine glucose detectionOrder ed By: Johann Lemons on 02-16-2025 Glucose Ql (U) 1000 mg/dl High Normal [facility] Urine leukocyte esterase det ection by dipstickOrdered By: Johann Lemons on 02-16-2025 Leukocyte esterase Test strip Ql (U) 500 /ul High Negative [facility] Urine pHOrdered By: Johann borjas on 02-16-2025 pH (U) 6.0 [pH] 5.0 - 8.0 [facility] [place] Urine sediment bacteria coun t by microscopy (number/high power field)Ordered By: Johann Lemons on 02-16-2025 Bacteria LM.HPF (Urine sed) [#/Area] 0 /[HPF] None Seen [facility] Urine specific gravity measu rementOrdered By: Johann Lemons on 02-16-2025 Specific gravity (U) [Rel density] 1.010 1.002-1.030 [facility] Urine total bilirubin detect ion by test stripOrdered By: Johann Lemons on 02-16-2025 Urine total bilirubin detection by test strip Negative Negative [facility] Urine urobilinogen measureme ntOrdered By: Johann Lemons on 02-16-2025 Urobilinogen Ql (U) Normal mg/dl Normal [facility] Urobilinogen Ql (U)Ordered B y: Johann Lemons on 02-16-2025 Urine urobilinogen measurement Normal mg/dl Normal [facility] Venous Blood Gason Blood Gas Type GRACY [facility] [place] Comment on above: Performed By: #### L 9000.0810 ####[facility] [address] [place], [address] CO2 [Moles/Vol] 34 mmol/L High 23-33 [facility] Comment on above: Performed By: #### L 9000.0810 ####[facility] [address] [place], [address] HCO3 (Bld) [Moles/Vol] 33 mmol/L High 22-26 [facility] Comment on above: Performed By: #### L 9000.0810 ####[facility] [address] [place], [address] O2 Delivery Dev Not entered [facility] [place] Comment on above: Performed By: #### L 9000.0810 ####[facility] [address] [place], [address] SITE Not entered [facility] [place] Comment on above: Performed By: #### L 9000.0810 ####[facility] [address] [place], [address] VBG BE 8 mmol/L High -1.0-3.5 [facility] Comment on above: Performed By: #### L 9000.0810 ####[facility] [address] [place], [address] VBG pCO2 54.5 mmHg High 41-51 [facility] Comment on above: Performed By: #### L 9000.0810 ####[facility] [address] [place], [address] VBG pH 7.39 Normal 7.32-7.42 [facility] Comment on above: Performed By: #### L 9000.0810 ####[facility] [address] [place], [address] VBG PO2 46 mmHg High 25-40 [facility] Comment on above: Performed By: #### L 9000.0810 ####[facility] [address] [place], [place], [id number] VBG SO2 80 High 50-70 [facility] Comment on above: Performed By: #### L 9000.0810 ####[facility] [address] [place], [place], [id number] Venous blood base excess sarina surementOrdered By: Johann Lemons on 02-16-2025 Base excess Calc (BldV) [Moles/Vol] 8 mmol/L High -1.0-3.5 [facility] Venous blood bicarbonate sarina surementOrdered By: Johann Lemons on 02-16-2025 HCO3 (Bld) [Moles/Vol] 33 mmol/L High 22-26 [facility] Venous blood bicarbonate measurement 33 mmol/L High 22-26 [facility] Venous blood oxygen saturati on measurementOrdered By: Johann Lemons on 02-16-2025 Oxygen saturation in Blood 80 % High 50-70 [facility] Venous blood oxygen saturation measurement 80 % High 50-70 [facility] Venous blood pH measurementO rdered By: Johann Lemons on 02-16-2025 pH (BldV) 7.39 [pH] 7.32-7.42 [facility] Venous blood partial pressur e of carbon dioxide measurementOrdered By: Johann Lemons on 02-16-2025 CO2 (BldV) [Partial pressure] 54.5 mm[Hg] High 41-51 [facility] Venous blood partial pressur e of oxygen measurementOrdered By: Johann Lemons on 02-16-2025 Oxygen (BldV) [Partial pressure] 46 mm[Hg] High 25-40 [facility] White blood cell (WBC) count Ordered By: Johann Lemons on 02-16-2025 WBC (Bld) [#/Vol] 8.7 10*3/uL 4.4-11.0 [facility] White blood cell (WBC) count 8.7 K/mm3 4.4-11.0 [facility] White blood cell countOrdere d By: Johann Lemons on 02-16-2025 White blood cell count >100 SEEN /hpf 0-5 [facility] White blood cell count >100 SEEN /hpf 0-5 [facility] pH (BldV)Ordered By: Johann Lemons on 02-16-2025 Venous blood pH measurement 7.39 7.32-7.42 [facility] pH (U)Ordered By: Wilmer on 02-16-2025 Urine pH 6.0 5.0 - 8.0 [facility] Urine Cultureon 12-29-2024 URC Normal [facility] Comment on above: Performed By: #### M 100.2200 ####[facility] [address] [place], [address] Bacteria LM.HPF (Urine sed) [#/Area]Ordered By: ED PROVIDER on 12-27-2024 Urine sediment bacteria count by microscopy (number/high power field) 3+ /hpf None Seen [facility] Bilirubin Test strip Ql (U)O rdered By: ED PROVIDER on 12-27-2024 Bilirubin Ql (U) Negative Negative [facility] Clarity (U)Ordered By: ED [place] OVIDER on 12-27-2024 Urine clarity Turbid Clear [facility] Color (U)Ordered By: ED PROV IDER on 12-27-2024 Urine color determination Yellow Yellow [facility] Emergency Department Summary on 12-27-2024 Emergency Department Summary Normal [facility] Glucose Ql (U)Ordered By: ED PROVIDER on 12-27-2024 Urine glucose detection 1000 mg/dl High Normal [facility] Ketones Test strip Ql (U)Ord ered By: ED PROVIDER on 12-27-2024 Ketones Ql (U) Negative Negative [facility] Leukocyte esterase Test stri p Ql (U)Ordered By: ED PROVIDER on 12-27-2024 Urine leukocyte esterase detection by dipstick 500 /ul High Negative [facility] Microscopic analysis of urin e for red blood cells (RBC)Ordered By: ED PROVIDER on 12-27-2024 Microscopic analysis of urine for red blood cells (RBC) 25-50 SEEN /hpf 0-5 [facility] Microscopic analysis of urine for red blood cells (RBC) 25-50 SEEN /hpf 0-5 [facility] Mucus LM Ql (Urine sed)Order ed By: ED PROVIDER on 12-27-2024 Mucus Ql (Urine sed) 0 SEEN /hpf [facility] Nitrite Test strip Ql (U)Ord ered By: ED PROVIDER on 12-27-2024 Nitrite Ql (U) Positive High Negative [facility] Urine nitrite test by dipstick Positive High Negative [facility] Protein Test strip Ql (U)Ord ered By: ED PROVIDER on 12-27-2024 Protein Ql (U) 500 mg/dl High Negative [facility] Urine protein assay by test strip, semi-quantitative 500 mg/dl High Negative [facility] Specific gravity (U) [Rel de nsity]Ordered By: ED PROVIDER on 12-27-2024 Urine specific gravity measurement 1.015 1.002-1.030 [facility] Squamous epithelial cells de tection in urine sediment by light microscopyOrdered By: ED PROVIDER on 12-27-2024 Epithelial cells.squamous LM Ql (Urine sed) 0 SEEN /hpf 0- [facility] Squamous epithelial cells detection in urine sediment by light microscopy 0 SEEN /hpf [facility] Urinalysis, Completeon 12-27 BACTERIA 3+ /hpf Normal None Seen [facility] Comment on above: Order Comment: CLEAN CATCH Performed By: #### L 400.0001 ####[facility] [address] [place], [place], [id number] RBC 25-50 SEEN Normal 0-5 [facility] Comment on above: Order Comment: CLEAN CATCH Performed By: #### L 400.0001 ####[facility] [address] [place], [address] WBC >100 SEEN Normal 0-5 [facility] Comment on above: Order Comment: CLEAN CATCH Result Comment: Micr oscopic field is filled. Other elements may beobscured. Performed By: #### L 400.0001 ####[facility] [address] [place], [address] EPI,SQUAMOUS 0 SEEN Normal 0-[address] [place] [address] Comment on above: Order Comment: CLEAN CATCH Performed By: #### L [id number] ####[facility] [address] [place], [place], [address] Mucus Ql (Urine sed) 0 SEEN Normal [facility] Comment on above: Order Comment: CLEAN CATCH Performed By: #### L 400.0001 ####[facility] [address] [place], [place], [address] Urine blood detectionOrdered By: ED PROVIDER on 12-27-2024 Urine blood detection 250 /ul High Negative [facility] Urine clarityOrdered By: ED PROVIDER on 12-27-2024 Clarity (U) Turbid Clear [facility] Urine color determinationOrd ered By: ED PROVIDER on 12-27-2024 Color (U) Yellow Yellow [facility] Urine glucose detectionOrder ed By: ED PROVIDER on 12-27-2024 Glucose Ql (U) 1000 mg/dl High Normal [facility] Urine leukocyte esterase det ection by dipstickOrdered By: ED PROVIDER on 12-27-2024 Leukocyte esterase Test strip Ql (U) 500 /ul High Negative [facility] Urine pHOrdered By: ED PROVI CRISTINA on 12-27-2024 pH (U) 6.0 [pH] 5.0 - 8.0 [facility] Urine sediment bacteria coun t by microscopy (number/high power field)Ordered By: ED PROVIDER on 12-27-2024 Bacteria LM.HPF (Urine sed) [#/Area] 3 /[HPF] None Seen [facility] Urine specific gravity measu rementOrdered By: ED PROVIDER on 12-27-2024 Specific gravity (U) [Rel density] 1.015 1.002-1.030 [facility] Urine total bilirubin detect ion by test stripOrdered By: ED PROVIDER on 12-27-2024 Urine total bilirubin detection by test strip Negative Negative [facility] Urine urobilinogen measureme ntOrdered By: ED PROVIDER on 12-27-2024 Urobilinogen Ql (U) Normal mg/dl Normal [facility] Urobilinogen Ql (U)Ordered B y: ED PROVIDER on 12-27-2024 Urine urobilinogen measurement Normal mg/dl Normal [facility] White blood cell countOrdere d By: ED PROVIDER on 12-27-2024 White blood cell count >100 SEEN /hpf 0-5 [facility] Comment on above: Microscopic field is filled. Other elements may be obscured. White blood cell count >100 SEEN /hpf 0-5 [facility] pH (U)Ordered By: ED PROVIDE R on 12-27-2024 Urine pH 6.0 5.0 - 8.0 [facility] Urine cultureOrdered By: Harley Castillo on 12-26-2024 Bacteria identified Cx Nom (U) Staphylococcus aureus Abnormal [facility] Urine culture Staphylococcus aureus Abnormal [facility] ALP [Catalytic activity/Vol] Ordered By: Avni Cash on 12-20-2024 Serum or plasma alkaline phosphatase measurement 117 U/L 45-117 [facility] ALT [Catalytic activity/Vol] Ordered By: Avni Cash on 12-20-2024 Serum or plasma alanine aminotransferase (ALT) measurement 16 U/L 16-61 [facility] Abdomen/Pelvis W IV Cont ONL Yon 12-20-2024 Abdomen/Pelvis W IV Cont ONLY Normal [facility] Absolute lymphocyte countOrd ered By: Avni Cash on 12-20-2024 Lymphocytes Auto (Unsp spec) [#/Vol] 1.10 10*3/uL 0.83-4.51 [facility] Absolute neutrophil countOrd ered By: Avni Cash on 12-20-2024 Neutrophils (Bld) [#/Vol] 6.6 10*3/uL 2.0-7.7 [facility] Absolute neutrophil count 6.6 X10^3/uL 2.0-7.7 [facility] Albumin [Mass/Vol]Ordered By : Avni Cash on 12-20-2024 Serum or plasma albumin measurement (mass/volume) 3.4 g/dL 3.2-5.0 [facility] Albumin to globulin ratioOrd ered By: Avni Cash on 12-20-2024 Albumin/Globulin [Mass ratio] 0.8 {ratio} Low 0.9-2.4 [facility] Albumin to globulin ratio 0.8 RATIO Low 0.9-2.4 [facility] Automated lymphocyte count a s percentage of total leukocytesOrdered By: Avni Cash on 12-20-2024 Lymphocytes/100 WBC Auto (Unsp spec) 13.2 % Low 19-41 [facility] Basophil percentageOrdered B y: Avni Cash on 12-20-2024 Basophils/100 WBC (Bld) 0.5 % 0-1 [facility] Basophil percentage 0.5 % 0-1 [facility] Bilirubin Test strip Ql (U)O rdered By: Avni Cash on 12-20-2024 Bilirubin Ql (U) Negative Negative [facility] Bilirubin, totalOrdered By: Avni Cash on 12-20-2024 Bilirubin [Mass/Vol] 0.70 mg/dL 0.20-1.00 [facility] Comment on above: For patients on eltr ombopag therapy, use of Dimension [place] TBIL is not recommended. Bilirubin, total 0.70 mg/dL 0.20-1.00 [facility] Blood urea nitrogen (BUN)/cr eatinine ratioOrdered By: Avni Cash on 12-20-2024 Urea nitrogen/Creatinine [Mass ratio] 11.2 mg/mg 08-19 [facility] Blood urea nitrogen (BUN)/creatinine ratio 11.2 RATIO 08-19 [facility] CBC W/Diff, Automatedon 12-02 Absolute Lymph 1.10 X10 3/uL Normal 0.83-4.51 [facility] Comment on above: Performed By: #### L 500.4050, L501.2450, L100.0100 ####[facility] [address] [place], [address] Absolute Neut 6.6 X10 3/uL Normal 2.0-7.7 [facility] Comment on above: Performed By: #### L 500.4050, L501.2450, L100.0100 ####[facility] [address] [place], [address] Basophils/100 WBC (Bld) 0.5 % Normal 0-1 [facility] Comment on above: Performed By: #### L 500.4050, L501.2450, L100.0100 ####[facility] [address] [place], [address] Eosinophils/100 WBC (Bld) 1.7 % Normal 0-5 [facility] Comment on above: Performed By: #### L 500.4050, L501.2450, L100.0100 ####[facility] [address] [place], [address] Erythrocyte distribution width (RBC) [Ratio] 13.9 % Normal 11.6-14.6 [facility] Comment on above: Performed By: #### L 500.4050, L501.2450, L100.0100 ####[facility] [address] [place], [address] Hematocrit (Bld) [Volume fraction] 40.7 % Normal 40-54 [facility] Comment on above: Performed By: #### L 500.4050, L501.2450, L100.0100 ####[facility] [address] [place], [address] Hemoglobin (Bld) [Mass/Vol] 14.4 g/dL Normal 13.0-16.5 [facility] Comment on above: Performed By: #### L 500.4050, L501.2450, L100.0100 ####[facility] [address] [place], [address] IG% 0.800 Normal 0.0-0.9 [facility] Comment on above: Result Comment: IG% - Immature Granulocytes (promyelocytes, myelocytes andmetamyelocytes) > 1% indicates that a LEFT SHIFT is Present. Performed By: #### L 500.4050, L501.2450, L100.0100 ####[facility] [address] [place], [address] Lymphocytes/100 WBC (Bld) 13.2 % Low 19-41 [facility] Comment on above: Performed By: #### L 500.4050, L501.2450, L100.0100 ####[facility] [address] [place], [address] MCH (RBC) [Entitic mass] 29.1 pg Normal 27.0-32.0 [facility] Comment on above: Performed By: #### L 500.4050, L501.2450, L100.0100 ####[facility] [address] [place], [address] MCHC (RBC) [Mass/Vol] 35.4 g/dL Normal 32-36 [facility] Comment on above: Performed By: #### L 500.4050, L501.2450, L100.0100 ####[facility] [address] [place], [address] MCV (RBC) [Entitic vol] 82.2 fL Normal 80-94 [facility] Comment on above: Performed By: #### L 500.4050, L501.2450, L100.0100 ####[facility] [address] [place], [address] Monocytes/100 WBC (Bld) 5.3 % Normal 0-10 [facility] Comment on above: Performed By: #### L 500.4050, L501.2450, L100.0100 ####[facility] [address] [place], [address] Neutrophils/100 WBC (Bld) 78.5 % High 47-70 [facility] Comment on above: Performed By: #### L 500.4050, L501.2450, L100.0100 ####[facility] [address] [place], [address] Nucleated RBC (Bld) [#/Vol] 0 10*3/uL Normal 0-5 [facility] Comment on above: Performed By: #### L 500.4050, L501.2450, L100.0100 ####[facility] [address] [place], [address] Platelet mean volume (Bld) [Entitic vol] 9.3 fL Normal 6.2-12.0 [facility] Comment on above: Performed By: #### L 500.4050, L501.2450, L100.0100 ####[facility] [address] [place], [address] Platelets (Bld) [#/Vol] 281 10*3/uL Normal 150-450 [facility] Comment on above: Performed By: #### L 500.4050, L501.2450, L100.0100 ####[facility] [address] [place], [address] RBC (Bld) [#/Vol] 4.95 10*6/uL Normal 4.6-6.2 [facility] Comment on above: Performed By: #### L 500.4050, L501.2450, L100.0100 ####[facility] [address] [place], [address] RDW SD 41.1 fl Normal 35.1-43.9 [facility] Comment on above: Performed By: #### L 500.4050, L501.2450, L100.0100 ####[facility] [address] [place], [address] WBC (Bld) [#/Vol] 8.4 10*3/uL Normal 4.4-11.0 [facility] Comment on above: Performed By: #### L 500.4050, L501.2450, L100.0100 ####[facility] [address] [place], [address] Calcium [Mass/Vol]Ordered By : Avni Cash on 12-20-2024 Serum or plasma calcium measurement (mass/volume) 9.7 mg/dL 8.5-10.1 [facility] Carbon dioxide measurementOr dered By: Avni Cash on 12-20-2024 CO2 [Moles/Vol] 31.0 mmol/L 21.0-32.0 [facility] Carbon dioxide measurement 31.0 mmol/L 21.0-32.0 [facility] Chloride measurementOrdered By: Avni Cash on 12-20-2024 Chloride [Moles/Vol] 99 mmol/L 98-107 [facility] Chloride measurement 99 mmol/L 98-107 [facility] Clarity (U)Ordered By: Avni Cash on 12-20-2024 Urine clarity Clear Clear [facility] Color (U)Ordered By: Avni hauser on 12-20-2024 Urine color determination Yellow Yellow [facility] Comprehensive Metabolic Prof ilon 12-20-2024 Albumin [Mass/Vol] 3.4 g/dL Normal 3.2-5.0 [facility] Comment on above: Performed By: #### L 500.4050, L501.2450, L100.0100 ####[facility] [address] [place], [address] Albumin/Globulin [Mass ratio] 0.8 {ratio} Low 0.9-2.4 [facility] Comment on above: Performed By: #### L 500.4050, L501.2450, L100.0100 ####[facility] [address] [place], [address] ALK P 117 U/L Normal 45-117 [facility] Comment on above: Performed By: #### L 500.4050, L501.2450, L100.0100 ####[facility] [address] [place], [address] ALT [Catalytic activity/Vol] 16 U/L Normal 16-61 [facility] Comment on above: Performed By: #### L 500.4050, L501.2450, L100.0100 ####[facility] [address] [place], [address] AST [Catalytic activity/Vol] 8 U/L Low 15-37 [facility] Comment on above: Performed By: #### L 500.4050, L501.2450, L100.0100 ####[facility] [address] [place], [address] Bilirubin [Mass/Vol] 0.70 mg/dL Normal 0.20-1.00 [facility] Comment on above: Result Comment: For patients on eltrombopag therapy, use of Dimension [place] TBIL is not recommended. Performed By: #### L 500.4050, L501.2450, L100.0100 ####[facility] [address] [place], [address] BUN/CRE 11.2 RATIO Normal 10-20 [facility] Comment on above: Performed By: #### L 500.4050, L501.2450, L100.0100 ####[facility] [address] [place], [address] CA,Total 9.7 mg/dL Normal 8.5-10.1 [facility] Comment on above: Performed By: #### L 500.4050, L501.2450, L100.0100 ####[facility] [address] [place], [address] Chloride [Moles/Vol] 99 mmol/L Normal 98-107 [facility] Comment on above: Performed By: #### L 500.4050, L501.2450, L100.0100 ####[facility] [address] [place], [address] CO2 [Moles/Vol] 31.0 mmol/L Normal 21.0-32.0 [facility] Comment on above: Performed By: #### L 500.4050, L501.2450, L100.0100 ####[facility] [address] [place], [address] Creatinine [Mass/Vol] 0.89 mg/dL Normal 0.70-1.30 [facility] Comment on above: Result Comment: The validity of the calculated GFR GFRAA in patients over70 years has not been determined. Clinical correlation isessential. Performed By: #### L 500.4050, L501.2450, L100.0100 ####[facility] [id number] [place], [address] EST GFR - AA 110 mL/min Normal >60 [facility] Comment on above: Result Comment: Afri can Vietnamese GFR Calc Performed By: #### L 500.4050, L501.2450, L100.0100 ####[facility] [address] [place], [address] GAP 5 Normal 5-15 [facility] Comment on above: Performed By: #### L 500.4050, L501.2450, L100.0100 ####[facility] [address] [place], [address] GFR/1.73 sq M.predicted among non-blacks MDRD (S/P/Bld) [Vol rate/Area] 91 mL/min/{1.73_m2} Normal >60 [facility] Comment on above: Result Comment: Non- GFR Calc Performed By: #### L 500.4050, L501.2450, L100.0100 ####[facility] [address] [place], [address] Globulin (S) [Mass/Vol] 4.1 g/dL Normal 2.2-4.2 [facility] Comment on above: Performed By: #### L 500.4050, L501.2450, L100.0100 ####[facility] [address] [place], [address] Glucose [Mass/Vol] 424 mg/dL High 74-106 [facility] Comment on above: Result Comment: Gluc ose result greater than or equal to 200 mg/dLsuggests DIABETES MELLITUS per A.D.A. criteria. Performed By: #### L 500.4050, L501.2450, L100.0100 ####[facility] [address] [place], [address] Potassium [Moles/Vol] 4.3 mmol/L Normal 3.5-5.1 [facility] Comment on above: Performed By: #### L 500.4050, L501.2450, L100.0100 ####[facility] [address] [place], [address] Sodium [Moles/Vol] 135 mmol/L Low 136-145 [facility] Comment on above: Performed By: #### L 500.4050, L501.2450, L100.0100 ####[facility] [address] [place], [address] T PROT 7.5 g/dL Normal 6.4-8.2 [facility] Comment on above: Performed By: #### L 500.4050, L501.2450, L100.0100 ####[facility] [address] [place], [address] Urea nitrogen [Mass/Vol] 10 mg/dL Normal 7-18 [facility] Comment on above: Performed By: #### L 500.4050, L501.2450, L100.0100 ####[facility] [address] [place], [address] Creatinine [Mass/Vol]Ordered By: Avni Cash on 12-20-2024 Serum or plasma creatinine measurement (mass/volume) 0.89 mg/dL 0.70-1.30 [facility] Emergency Department Summary on 12-20-2024 Emergency Department Summary Normal [facility] Eosinophil percentageOrdered By: Avni Cash on 12-20-2024 Eosinophils/100 WBC (Bld) 1.7 % 0-5 [facility] Eosinophil percentage 1.7 % 0-5 [facility] Erythrocyte distribution wid th (RBC) [Ratio]Ordered By: Avni Cash on 12-20-2024 Erythrocyte distribution width ratio 13.9 % 11.6-14.6 [facility] Erythrocyte distribution width standard deviation 41.1 fl 35.1-43.9 [facility] Erythrocyte distribution wid th ratioOrdered By: Avni Cash on 12-20-2024 Erythrocyte distribution width (RBC) [Ratio] 13.9 % 11.6-14.6 [facility] Erythrocyte distribution wid th standard deviationOrdered By: Avni Cash on 12-20-2024 Erythrocyte distribution width (RBC) [Ratio] 41.1 fl 35.1-43.9 [facility] Estimated glomerular filtrat ion rate (GFR) AmericanOrdered By: Avni Cash on 12-20-2024 Estimated glomerular filtration rate (GFR) 110 mL/min >60 [facility] Glomerular filtration rate ( GFR) estimationOrdered By: Avni Cash on 12-20-2024 GFR/1.73 sq M.predicted among non-blacks MDRD (S/P/Bld) [Vol rate/Area] 91 mL/min/{1.73_m2} >60 [facility] Comment on above: Non- GFR Calc Glomerular filtration rate (GFR) estimation 91 mL/min >60 [facility] Glucose Ql (U)Ordered By: Vitor Cash on 12-20-2024 Urine glucose detection 1000 mg/dl High Normal [facility] Glucose measurementOrdered B y: Avni Cash on 12-20-2024 Glucose [Mass/Vol] 424 mg/dL High 74-106 [facility] Comment on above: Glucose result great er than or equal to 200 mg/dLsuggests DIABETES MELLITUS per A.D.A. criteria. Glucose measurement 424 mg/dL High 74-106 [facility] Hematocrit Auto (Bld) [Volum e fraction]Ordered By: Avni Cash on 12-20-2024 Hematocrit (Bld) [Volume fraction] 40.7 % 40-54 [facility] Automated blood hematocrit (percentage) 40.7 % -54 [facility] Hemoglobin measurementOrdere d By: Avni Cash on 12-20-2024 Hemoglobin (Bld) [Mass/Vol] 14.4 g/dL 13.0-16.5 [facility] Hemoglobin measurement 14.4 g/dL 13.0-16.5 [facility] Hyaline casts LM.LPF (Urine sed) [#/Area]Ordered By: Avni Cash on 12-20-2024 Hyaline casts (Urine sed) [#/Area] 0 /[LPF] 0-5 [facility] Urine sediment hyaline cast count by microscopy (number/low power field) 0-5 SEEN /lpf 0-5 [facility] Immature granulocytes/100 WB C Auto (Bld)Ordered By: Avni Cash on 12-20-2024 Immature granulocytes/100 WBC (Bld) 0.800 % 0.0-0.9 [facility] Comment on above: IG% - Immature Granu locytes (promyelocytes, myelocytes and metamyelocytes) > 1% indicates that a LEFT SHIFT is Present. Automated immature granulocyte percentage 0.800 % 0.0-0.9 [facility] Ketones Test strip Ql (U)Ord ered By: Avni Cash on 12-20-2024 Ketones Ql (U) Negative Negative [facility] Laboratory - Chemistry and C hemistry - challengeOrdered By: Avni Cash on 12-20-2024 AST [Catalytic activity/Vol] 8 U/L Low 15-37 [facility] Lipaseon 12-20-2024 Lipase [Catalytic activity/Vol] 13 U/L Low 73-393 [facility] Comment on above: Performed By: #### L 500.4050, L501.2450, L100.0100 ####[facility] [address] [place], [address] Lipase measurementOrdered By : Avni Cash on 12-20-2024 Lipase [Catalytic activity/Vol] 13 U/L Low 73-393 [facility] Lipase measurement 13 U/L Low 73-393 [facility] Lymphocytes Auto (Unsp spec) [#/Vol]Ordered By: Avni Cash on 12-20-2024 Absolute lymphocyte count 1.10 X10^3/uL 0.83-4.51 [facility] Lymphocytes/100 WBC Auto (Un sp spec)Ordered By: Avni Cash on 12-20-2024 Automated lymphocyte count as percentage of total leukocytes 13.2 % Low 19-41 [facility] MCV (RBC) [Entitic vol]Order ed By: Avni Cash on 12-20-2024 MCV (mean corpuscular volume) determination 82.2 fL 80-94 [facility] MCV (mean corpuscular volume ) determinationOrdered By: Avni Cash on 12-20-2024 MCV (RBC) [Entitic vol] 82.2 fL 80-94 [facility] Mean corpuscular hemoglobin (MCH) determinationOrdered By: Avni Cash on 12-20-2024 MCH (RBC) [Entitic mass] 29.1 pg 27.0-32.0 [facility] Mean corpuscular hemoglobin (MCH) determination 29.1 pg 27.0-32.0 [facility] Mean corpuscular hemoglobin concentration (MCHC) determinationOrdered By: Avni Cash on 12-20-2024 MCHC (RBC) [Mass/Vol] 35.4 g/dL 32-36 [facility] Mean corpuscular hemoglobin concentration (MCHC) determination 35.4 g/dL -36 [facility] Mean platelet volume determi nationOrdered By: Avni Cash on 12-20-2024 Platelet mean volume (Bld) [Entitic vol] 9.3 fL 6.2-12.0 [facility] Mean platelet volume determination 9.3 fl 6.2-12.0 [facility] Microscopic analysis of urin e for red blood cells (RBC)Ordered By: Avni Cash on 12-20-2024 Microscopic analysis of urine for red blood cells (RBC) 0-5 SEEN /hpf 0-5 [facility] Monocyte percentageOrdered B y: Avni Cash on 12-20-2024 Monocytes/100 WBC (Bld) 5.3 % 0-10 [facility] Monocyte percentage 5.3 % 0-10 [facility] Mucus LM Ql (Urine sed)Order ed By: Avni Cash on 12-20-2024 Mucus Ql (Urine sed) 0 SEEN /hpf [facility] Neutrophil percentageOrdered By: Avni Cash on 12-20-2024 Neutrophils/100 WBC (Bld) 78.5 % High 47-70 [facility] Neutrophil percentage 78.5 % High 47-70 [facility] Nitrite Test strip Ql (U)Ord ered By: Avni Cash on 12-20-2024 Nitrite Ql (U) Negative Negative [facility] No Panel InformationOrdered By: Avni Cash on 12-20-2024 8 U/L Low 15-37 [facility] Nucleated red blood cell per centageOrdered By: Avni Cash on 12-20-2024 Nucleated RBC/100 WBC (Bld) [Ratio] 0 % 0-5 [facility] Nucleated red blood cell percentage 0 % 0-5 [facility] Platelet countOrdered By: Vitor Cash on 12-20-2024 Platelets (Bld) [#/Vol] 281 10*3/uL 150-450 [facility] Platelet count 281 K/mm3 150-450 [facility] Potassium measurementOrdered By: Avni Cash on 12-20-2024 Potassium [Moles/Vol] 4.3 mmol/L 3.5-5.1 [facility] Potassium measurement 4.3 mmol/L 3.5-5.1 [facility] Protein Test strip Ql (U)Ord ered By: Avni Cash on 12-20-2024 Protein Ql (U) Negative Negative [facility] RBC Auto (Bld) [#/Vol]Ordere d By: Avni Cash on 12-20-2024 RBC (Bld) [#/Vol] 4.95 10*6/uL 4.6-6.2 [facility] Automated blood erythrocyte count 4.95 M/mm3 4.6-6.2 [facility] Serum anion gap measurementO rdered By: Avni Cash on 12-20-2024 Anion gap [Moles/Vol] 5 mmol/L 5-15 [facility] Serum anion gap measurement 5 5-15 [facility] Serum globulin measurementOr dered By: Avni Cash on 12-20-2024 Globulin (S) [Mass/Vol] 4.1 g/dL 2.2-4.2 [facility] Serum globulin measurement 4.1 g/dL 2.2-4.2 [facility] Serum or plasma alanine wagoner otransferase (ALT) measurementOrdered By: Avni Cash on 12-20-2024 ALT [Catalytic activity/Vol] 16 U/L 16-61 [facility] Serum or plasma albumin yayo urement (mass/volume)Ordered By: Avni Cash on 12-20-2024 Albumin [Mass/Vol] 3.4 g/dL 3.2-5.0 [facility] Serum or plasma alkaline andrzej sphatase measurementOrdered By: Avni Cash on 12-20-2024 ALP [Catalytic activity/Vol] 117 U/L 45-117 [facility] Serum or plasma calcium yayo urement (mass/volume)Ordered By: Avni Cash on 12-20-2024 Calcium [Mass/Vol] 9.7 mg/dL 8.5-10.1 [facility] Serum or plasma creatinine m easurement (mass/volume)Ordered By: Avni Cash on 12-20-2024 Creatinine [Mass/Vol] 0.89 mg/dL 0.70-1.30 [facility] Comment on above: The validity of the calculated GFR & GFRAA in patients over 70 years has not been determined. Clinical correlation is essential. Serum or plasma urea nitroge n measurement (mass/volume)Ordered By: Avni Cash on 12-20-2024 Urea nitrogen [Mass/Vol] 10 mg/dL - [facility] Sodium levelOrdered By: Avni Cash on 12-20-2024 Sodium [Moles/Vol] 135 mmol/L Low 136-145 [facility] Sodium level 135 mmol/L Low 136-145 [facility] Specific gravity (U) [Rel de nsity]Ordered By: Avni Cash on 12-20-2024 Urine specific gravity measurement 1.010 1.002-1.030 [facility] Squamous epithelial cells de tection in urine sediment by light microscopyOrdered By: Avni Cash on 12-20-2024 Epithelial cells.squamous LM Ql (Urine sed) 0 SEEN /hpf 0-5 [facility] Squamous epithelial cells detection in urine sediment by light microscopy 0 SEEN /hpf [facility] Total proteinOrdered By: Geovani Cash on 12-20-2024 Protein [Mass/Vol] 7.5 g/dL 6.4-8.2 [facility] Total protein 7.5 g/dL 6.4-8.2 [facility] Urea nitrogen [Mass/Vol]Orde red By: Avni Cash on 12-20-2024 Serum or plasma urea nitrogen measurement (mass/volume) 10 mg/dL - [facility] Urinalysis, Completeon 12-20 CAST,HYALINE 0-5 SEEN Normal 0-5 [facility] Comment on above: Order Comment: CLEAN CATCH Performed By: #### L 400.0001 ####[facility] [address] [place], [address] RBC 0-5 SEEN Normal 0-5 [facility] Comment on above: Order Comment: CLEAN CATCH Performed By: #### L 400.0001 ####[facility] [address] [place], [address] WBC 0-5 SEEN Normal 0-5 [facility] Comment on above: Order Comment: CLEAN CATCH Performed By: #### L [id number] ####[facility] [address] [place], [address] YEAST 1+ /hpf Normal None Seen [facility] Comment on above: Order Comment: CLEAN CATCH Performed By: #### L [id number] ####[facility] [address] [place], [address] BACTERIA 0 SEEN Normal None Seen [facility] Comment on above: Order Comment: CLEAN CATCH Performed By: #### L [id number] ####[facility] [address] [place], [address] EPI,SQUAMOUS 0 SEEN Normal 0-5 [facility] Comment on above: Order Comment: CLEAN CATCH Performed By: #### L [id number] ####[facility] [address] [place], [address] Mucus Ql (Urine sed) 0 SEEN Normal [facility] Comment on above: Order Comment: CLEAN CATCH Performed By: #### L 400.0001 ####[facility] [address] [place], [address] Urine blood detectionOrdered By: Avni Cash on 12-20-2024 Urine blood detection 10 /ul High Negative [facility] Urine clarityOrdered By: Geovani Cash on 12-20-2024 Clarity (U) Clear Clear [facility] Urine color determinationOrd ered By: Avni Cash on 02-20-2025 Color (U) Yellow Yellow [facility] Urine glucose detectionOrder ed By: Avni Cash on 12-20-2024 Glucose Ql (U) 1000 mg/dl High Normal [facility] Urine leukocyte esterase det ection by dipstickOrdered By: Avni Cash on 12-20-2024 Leukocyte esterase Test strip Ql (U) Negative Negative [facility] Urine pHOrdered By: Avni jiang on 12-20-2024 pH (U) 5.0 [pH] 5.0 - 8.0 [facility] Urine sediment bacteria coun t by microscopy (number/high power field)Ordered By: Avni Cash on 12-20-2024 Bacteria LM.HPF (Urine sed) [#/Area] 0 /[HPF] None Seen [facility] Urine sediment yeast count b y microscopy (number/high powered field)Ordered By: Avni Cash on 12-20-2024 Yeast LM.HPF (Urine sed) [#/Area] 1 /[HPF] None Seen [facility] Urine specific gravity measu rementOrdered By: Avni Cash on 12-20-2024 Specific gravity (U) [Rel density] 1.010 1.002-1.030 [facility] Urine total bilirubin detect ion by test stripOrdered By: Avni Cash on 12-20-2024 Urine total bilirubin detection by test strip Negative Negative [facility] Urine urobilinogen measureme ntOrdered By: Avni Cash on 12-20-2024 Urobilinogen Ql (U) Normal mg/dl Normal [facility] Urobilinogen Ql (U)Ordered B y: Avni Cash on 12-20-2024 Urine urobilinogen measurement Normal mg/dl Normal [facility] White blood cell (WBC) count Ordered By: Avni Cash on 12-20-2024 WBC (Bld) [#/Vol] 8.4 10*3/uL 4.4-11.0 [facility] White blood cell (WBC) count 8.4 K/mm3 4.4-11.0 [facility] White blood cell countOrdere d By: Avni Cash on 12-20-2024 White blood cell count 0-5 SEEN /hpf 0-5 [facility] White blood cell count 0-5 SEEN /hpf 0-5 [facility] Yeast LM.HPF (Urine sed) [#/ Area]Ordered By: Avni Cash on 12-20-2024 Urine sediment yeast count by microscopy (number/high powered field) 1+ /hpf None Seen [facility] pH (U)Ordered By: Avni pena on 12-20-2024 Urine pH 5.0 5.0 - 8.0 [facility] CNOVon 12-14-2024 CNOV Office Visit ([facility]STR ) JERALD YODER ([id number]) 1960 M Date Time Provider Department [facility] 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 Subjective Jerald Yoder is a 64 year [...] - CETIRIZINE 10 MG TABLET Ion Alfaro APRN.HYDROELECTRIC COMPONENT MACHINIST Allergies As of Date: 12/14/2024 Noted Allergy Reaction BEE STING 06/22/2011 7 - Swelling BENEDRYL (DIPHENHYDRAMINE) 06/22/2011 7 - Swelling PENICILLINS 06/22/2011 2 - Rash Date Reviewed: 12/14/2024 Reviewed by: Ion Alfaro APRN.HYDROELECTRIC COMPONENT MACHINIST - Fully Assessed Reason for Visit: Ear Problem [38] Cmt: Bilateral clogged x1 day Primary Visit Diagnosis:Eustachian tube dysfunction, bilateral [H69.93] Order(s):fluticasone (FLONASE ALLERGY RELIEF) 50 mcg/actuation nasal sprayUse 1 [place] in each nostril once daily.Disp: 9.9 mLRfl: 0 cetirizine (ZYRTEC) 10 mg tabletTake 1 tablet by mouth once daily for 14 days.Disp: 14 tabletRfl: 0 Prescriptions as of 12/14/2024 - fluticasone (FLONASE ALLERGY RELIEF) 50 mcg/actuation nasal spray Use 1 [place] in each nostril once daily. - cetirizine [...] Dx: 250.02. (more content not included)... Normal [facility] ALP [Catalytic activity/Vol] Ordered By: Barry Mathew on 12-08-2024 Serum or plasma alkaline phosphatase measurement 98 U/L 45-117 [facility] ALT [Catalytic activity/Vol] Ordered By: Barry Mathew on 12-08-2024 Serum or plasma alanine aminotransferase (ALT) measurement 16 U/L 16-61 [facility] Absolute lymphocyte countOrd ered By: Barry Mathew on 12-08-2024 Lymphocytes Auto (Unsp spec) [#/Vol] 1.25 10*3/uL 0.83-4.51 [facility] Absolute neutrophil countOrd ered By: Barry Mathew on 12-08-2024 Neutrophils (Bld) [#/Vol] 4.1 10*3/uL 2.0-7.7 [facility] Absolute neutrophil count 4.1 X10^3/uL 2.0-7.7 [facility] Albumin [Mass/Vol]Ordered By : Barry Mathew on 12-08-2024 Serum or plasma albumin measurement (mass/volume) 3.5 g/dL 3.2-5.0 [facility] Albumin to globulin ratioOrd ered By: Barry Mathew on 12-08-2024 Albumin/Globulin [Mass ratio] 0.9 {ratio} 0.9-2.4 [facility] Albumin to globulin ratio 0.9 RATIO 0.9-2.4 [facility] Automated lymphocyte count a s percentage of total leukocytesOrdered By: Barry Mathew on 12-08-2024 Lymphocytes/100 WBC Auto (Unsp spec) 20.7 % 19-41 [facility] Bacteria LM.HPF (Urine sed) [#/Area]Ordered By: Barry Mathew on 12-08-2024 Urine sediment bacteria count by microscopy (number/high power field) 1+ /hpf None Seen [facility] Basophil percentageOrdered B y: Barry Mathew on 12-08-2024 Basophils/100 WBC (Bld) 0.7 % 0-1 [facility] Basophil percentage 0.7 % 0-1 [facility] Bilirubin Test strip Ql (U)O rdered By: Barry Mathew on 12-08-2024 Bilirubin Ql (U) Negative Negative [facility] Bilirubin, totalOrdered By: Barry Mathew on 12-08-2024 Bilirubin [Mass/Vol] 0.40 mg/dL 0.20-1.00 [facility] Comment on above: For patients on eltr ombopag therapy, use of Dimension [place] TBIL is not recommended. Bilirubin, total 0.40 mg/dL 0.20-1.00 [facility] Blood urea nitrogen (BUN)/cr eatinine ratioOrdered By: Barry Mathew on 12-08-2024 Urea nitrogen/Creatinine [Mass ratio] 14.2 mg/mg 10-20 [facility] Blood urea nitrogen (BUN)/creatinine ratio 14.2 RATIO -20 [facility] CBC W/Diff, Automatedon 02-0 -2024 Absolute Lymph 1.25 X10 3/uL Normal 0.83-4.51 [facility] Comment on above: Performed By: #### L 500.4050, L100.0100 ####[facility] [address] [place], [address] Absolute Neut 4.1 X10 3/uL Normal 2.0-7.7 [facility] Comment on above: Performed By: #### L 500.4050, L100.0100 ####[facility] [address] [place], [address] Basophils/100 WBC (Bld) 0.7 % Normal 0-1 [facility] Comment on above: Performed By: #### L 500.4050, L100.0100 ####[facility] [address] [place], [address] Eosinophils/100 WBC (Bld) 3.8 % Normal 0-5 [facility] Comment on above: Performed By: #### L 500.4050, L100.0100 ####[facility] [address] [place], [address] Erythrocyte distribution width (RBC) [Ratio] 14.0 % Normal 11.6-14.6 [facility] Comment on above: Performed By: #### L 500.4050, L100.0100 ####[facility] [address] [place], [address] Hematocrit (Bld) [Volume fraction] 38.6 % Low 40-54 [facility] Comment on above: Performed By: #### L 500.4050, L100.0100 ####[facility] [address] [place], [address] Hemoglobin (Bld) [Mass/Vol] 13.6 g/dL Normal 13.0-16.5 [facility] Comment on above: Performed By: #### L 500.4050, L100.0100 ####[facility] [address] [place], [address] IG% 0.500 Normal 0.0-0.9 [facility] Comment on above: Result Comment: IG% - Immature Granulocytes (promyelocytes, myelocytes andmetamyelocytes) > 1% indicates that a LEFT SHIFT is Present. Performed By: #### L 500.4050, L100.0100 ####[facility] [address] [place], [address] Lymphocytes/100 WBC (Bld) 20.7 % Normal 19-41 [facility] Comment on above: Performed By: #### L 500.4050, L100.0100 ####[facility] [address] [place], [address] MCH (RBC) [Entitic mass] 28.5 pg Normal 27.0-32.0 [facility] Comment on above: Performed By: #### L 500.4050, L100.0100 ####[facility] [address] [place], [address] MCHC (RBC) [Mass/Vol] 35.2 g/dL Normal 32-36 [facility] Comment on above: Performed By: #### L 500.4050, L100.0100 ####[facility] [address] [place], [address] MCV (RBC) [Entitic vol] 80.9 fL Normal 80-94 [facility] Comment on above: Performed By: #### L 500.4050, L100.0100 ####[facility] [address] [place], [address] Monocytes/100 WBC (Bld) 7.1 % Normal 0-10 [facility] Comment on above: Performed By: #### L 500.4050, L100.0100 ####[facility] [address] [place], [address] Neutrophils/100 WBC (Bld) 67.2 % Normal 47-70 [facility] Comment on above: Performed By: #### L 500.4050, L100.0100 ####[facility] [address] [place], [address] Nucleated RBC (Bld) [#/Vol] 0 10*3/uL Normal 0-5 [facility] Comment on above: Performed By: #### L 500.4050, L100.0100 ####[facility] [address] [place], [address] Platelet mean volume (Bld) [Entitic vol] 8.9 fL Normal 6.2-12.0 [facility] Comment on above: Performed By: #### L 500.4050, L100.0100 ####[facility] [address] [place], [address] Platelets (Bld) [#/Vol] 226 10*3/uL Normal 150-450 [facility] Comment on above: Performed By: #### L 500.4050, L100.0100 ####[facility] [address] [place], [address] RBC (Bld) [#/Vol] 4.77 10*6/uL Normal 4.6-6.2 [facility] Comment on above: Performed By: #### L 500.4050, L100.0100 ####[facility] [address] [place], [address] RDW SD 40.5 fl Normal 35.1-43.9 [facility] Comment on above: Performed By: #### L 500.4050, L100.0100 ####[facility] [address] [place], [address] WBC (Bld) [#/Vol] 6.0 10*3/uL Normal 4.4-11.0 [facility] Comment on above: Performed By: #### L 500.4050, L100.0100 ####[facility] [address] [place], [address] Calcium [Mass/Vol]Ordered By : Barry Mathew on 12-08-2024 Serum or plasma calcium measurement (mass/volume) 9.0 mg/dL 8.5-10.1 [facility] Carbon dioxide measurementOr dered By: Barry Mathew on 12-08-2024 CO2 [Moles/Vol] 30.0 mmol/L 21.0-32.0 [facility] Carbon dioxide measurement 30.0 mmol/L 21.0-32.0 [facility] Chloride measurementOrdered By: Barry Mathew on 12-08-2024 Chloride [Moles/Vol] 100 mmol/L 98-107 [facility] Chloride measurement 100 mmol/L 98-107 [facility] Clarity (U)Ordered By: Barry Mathew on 12-08-2024 Urine clarity Clear Clear [facility] Color (U)Ordered By: Barry gordon on 12-08-2024 Urine color determination Yellow Yellow [facility] Comprehensive Metabolic Prof ilon 12-08-2024 Albumin [Mass/Vol] 3.5 g/dL Normal 3.2-5.0 [facility] Comment on above: Performed By: #### L 500.4050, L100.0100 ####[facility] [address] [place], [address] Albumin/Globulin [Mass ratio] 0.9 {ratio} Normal 0.9-2.4 [facility] Comment on above: Performed By: #### L 500.4050, L100.0100 ####[facility] [address] [place], [address] ALK P 98 U/L Normal 45-117 [facility] Comment on above: Performed By: #### L 500.4050, L100.0100 ####[facility] [address] [place], [address] ALT [Catalytic activity/Vol] 16 U/L Normal 16-61 [facility] Comment on above: Performed By: #### L 500.4050, L100.0100 ####[facility] [address] [place], [address] AST [Catalytic activity/Vol] 10 U/L Low 15-37 [facility] Comment on above: Performed By: #### L 500.4050, L100.0100 ####[facility] [address] [place], [address] Bilirubin [Mass/Vol] 0.40 mg/dL Normal 0.20-1.00 [facility] Comment on above: Result Comment: For patients on eltrombopag therapy, use of Dimension [place] TBIL is not recommended. Performed By: #### L 500.4050, L100.0100 ####[facility] [address] [place], [address] BUN/CRE 14.2 RATIO Normal 10-20 [facility] Comment on above: Performed By: #### L 500.4050, L100.0100 ####[facility] [address] [place], [address] CA,Total 9.0 mg/dL Normal 8.5-10.1 [facility] Comment on above: Performed By: #### L 500.4050, L100.0100 ####[facility] [address] [place], [address] Chloride [Moles/Vol] 100 mmol/L Normal 98-107 [facility] Comment on above: Performed By: #### L 500.4050, L100.0100 ####[facility] [address] [place], [address] CO2 [Moles/Vol] 30.0 mmol/L Normal 21.0-32.0 [facility] Comment on above: Performed By: #### L 500.4050, L100.0100 ####[facility] [address] [place], [address] Creatinine [Mass/Vol] 0.85 mg/dL Normal 0.70-1.30 [facility] Comment on above: Result Comment: The validity of the calculated GFR GFRAA in patients over70 years has not been determined. Clinical correlation isessential. Performed By: #### L 500.4050, L100.0100 ####[facility] [address] [place], [address] ECRCL 110.65 ml/min Normal [facility] Comment on above: Performed By: #### L 500.4050, L100.0100 ####[facility] [address] [place], [address] EST GFR - AA 117 mL/min Normal >60 [facility] Comment on above: Result Comment: Afri can Vietnamese GFR Calc Performed By: #### L 500.4050, L100.0100 ####[facility] [address] [place], [address] GAP 6 Normal 5-15 [facility] Comment on above: Performed By: #### L 500.4050, L100.0100 ####[facility] [address] [place], [address] GFR/1.73 sq M.predicted among non-blacks MDRD (S/P/Bld) [Vol rate/Area] 97 mL/min/{1.73_m2} Normal >60 [facility] Comment on above: Result Comment: Non- GFR Calc Performed By: #### L 500.4050, L100.0100 ####[facility] [address] [place], [address] Globulin (S) [Mass/Vol] 3.8 g/dL Normal 2.2-4.2 [facility] Comment on above: Performed By: #### L 500.4050, L100.0100 ####[facility] [address] [place], [address] Glucose [Mass/Vol] 395 mg/dL High 74-106 [facility] Comment on above: Result Comment: Gluc ose result greater than or equal to 200 mg/dLsuggests DIABETES MELLITUS per A.D.A. criteria. Performed By: #### L 500.4050, L100.0100 ####[facility] [address] [place], [address] Potassium [Moles/Vol] 3.9 mmol/L Normal 3.5-5.1 [facility] Comment on above: Performed By: #### L 500.4050, L100.0100 ####[facility] [address] [place], [address] Sodium [Moles/Vol] 136 mmol/L Normal 136-145 [facility] Comment on above: Performed By: #### L 500.4050, L100.0100 ####[facility] [address] [place], [address] T PROT 7.3 g/dL Normal 6.4-8.2 [facility] Comment on above: Performed By: #### L 500.4050, L100.0100 ####[facility] [address] [place], [address] Urea nitrogen [Mass/Vol] 12 mg/dL Normal 7-18 [facility] Comment on above: Performed By: #### L 500.4050, L100.0100 ####[facility] [address] [place], [address] Creatinine [Mass/Vol]Ordered By: Barry Mathew on 12-08-2024 Serum or plasma creatinine measurement (mass/volume) 0.85 mg/dL 0.70-1.30 [facility] Emergency Department Summary on 12-08-2024 Emergency Department Summary Normal [facility] Eosinophil percentageOrdered By: Barry Mathew on 12-08-2024 Eosinophils/100 WBC (Bld) 3.8 % 0-5 [facility] Eosinophil percentage 3.8 % 0-5 [facility] Epithelial cells.squamous LM Ql (Urine sed)Ordered By: Barry Mathew on 12-08-2024 Squamous epithelial cells detection in urine sediment by light microscopy 0-5 SEEN /hpf 0-5 [facility] Erythrocyte distribution wid th (RBC) [Ratio]Ordered By: Barry Mathew on 12-08-2024 Erythrocyte distribution width ratio 14.0 % 11.6-14.6 [facility] Erythrocyte distribution width standard deviation 40.5 fl 35.1-43.9 [facility] Erythrocyte distribution wid th ratioOrdered By: Barry Mathew on 12-08-2024 Erythrocyte distribution width (RBC) [Ratio] 14.0 % 11.6-14.6 [facility] Erythrocyte distribution wid th standard deviationOrdered By: Barry Mathew on 12-08-2024 Erythrocyte distribution width (RBC) [Ratio] 40.5 fl 35.1-43.9 [facility] Estimated glomerular filtrat ion rate (GFR) AmericanOrdered By: Barry Mathew on 12-08-2024 Estimated glomerular filtration rate (GFR) 117 mL/min >60 [facility] Estimation of creatinine edinson aranceOrdered By: Barry Mathew on 12-08-2024 Estimation of creatinine clearance 110.65 ml/min [facility] Glomerular filtration rate ( GFR) estimationOrdered By: Barry Mathew on 12-08-2024 GFR/1.73 sq M.predicted among non-blacks MDRD (S/P/Bld) [Vol rate/Area] 97 mL/min/{1.73_m2} >60 [facility] Comment on above: Non- GFR Calc Glomerular filtration rate (GFR) estimation 97 mL/min >60 [facility] Glucose Ql (U)Ordered By: Franco Mathew on 12-08-2024 Urine glucose detection 1000 mg/dl High Normal [facility] Glucose measurementOrdered B y: Barry Mathew on 12-08-2024 Glucose [Mass/Vol] 395 mg/dL High 74-106 [facility] Comment on above: Glucose result great er than or equal to 200 mg/dLsuggests DIABETES MELLITUS per A.D.A. criteria. Glucose measurement 395 mg/dL High 74-106 [facility] Hematocrit Auto (Bld) [Volum e fraction]Ordered By: Barry Mathew on 12-08-2024 Hematocrit (Bld) [Volume fraction] 38.6 % Low 40-54 [facility] Automated blood hematocrit (percentage) 38.6 % Low 40-54 [facility] Hemoglobin measurementOrdere d By: Barry Mathew on 12-08-2024 Hemoglobin (Bld) [Mass/Vol] 13.6 g/dL 13.0-16.5 [facility] Hemoglobin measurement 13.6 g/dL 13.0-16.5 [facility] Immature granulocytes/100 WB C Auto (Bld)Ordered By: Barry Mathew on 12-08-2024 Immature granulocytes/100 WBC (Bld) 0.500 % 0.0-0.9 [facility] Comment on above: IG% - Immature Granu locytes (promyelocytes, myelocytes and metamyelocytes) > 1% indicates that a LEFT SHIFT is Present. Automated immature granulocyte percentage 0.500 % 0.0-0.9 [facility] Influenza virus A and B and SARS-CoV-2 (COVID-19) and Respiratory syncytial virus RNAOrdered By: Barry Mathew on 12-08-2024 SARS-CoV-2 (COVID-19) RNA IOANA+probe Ql (Unsp spec) [facility] Ketones Test strip Ql (U)Ord ered By: Barry Mathew on 12-08-2024 Ketones Ql (U) Negative Negative [facility] Laboratory - Chemistry and C hemistry - challengeOrdered By: Barry Mathew on 12-08-2024 AST [Catalytic activity/Vol] 10 U/L Low 15-37 [facility] Lymphocytes Auto (Unsp spec) [#/Vol]Ordered By: Barry Mathew on 12-08-2024 Absolute lymphocyte count 1.25 X10^3/uL 0.83-4.51 [facility] Lymphocytes/100 WBC Auto (Un sp spec)Ordered By: Barry Mathew on 12-08-2024 Automated lymphocyte count as percentage of total leukocytes 20.7 % 19-41 [facility] M100.678on 12-08-2024 M100.678 Pending SARS-CoV-2 (COVID 19) Negative INFLUENZA A Negative INFLUENZA B Negative RSV PCR Negative Normal [facility] Comment on above: Performed By: #### L 400.0001, M100.678 ####[facility] [address] [place], [address] MCV (RBC) [Entitic vol]Order ed By: Barry Mathew on 12-08-2024 MCV (mean corpuscular volume) determination 80.9 fL 80-94 [facility] MCV (mean corpuscular volume ) determinationOrdered By: Barry Mathew on 12-08-2024 MCV (RBC) [Entitic vol] 80.9 fL 80-94 [facility] Mean corpuscular hemoglobin (MCH) determinationOrdered By: Barry Mathew on 12-08-2024 MCH (RBC) [Entitic mass] 28.5 pg 27.0-32.0 [facility] Mean corpuscular hemoglobin (MCH) determination 28.5 pg 27.0-32.0 [facility] Mean corpuscular hemoglobin concentration (MCHC) determinationOrdered By: Barry Mathew on 12-08-2024 MCHC (RBC) [Mass/Vol] 35.2 g/dL 32-36 [facility] Mean corpuscular hemoglobin concentration (MCHC) determination 35.2 g/dL 32-36 [facility] Mean platelet volume determi nationOrdered By: Barry Mathew on 12-08-2024 Platelet mean volume (Bld) [Entitic vol] 8.9 fL 6.2-12.0 [facility] Mean platelet volume determination 8.9 fl 6.2-12.0 [facility] Microscopic analysis of urin e for red blood cells (RBC)Ordered By: Barry Mathew on 12-08-2024 Microscopic analysis of urine for red blood cells (RBC) 0 SEEN /hpf 0-5 [facility] Monocyte percentageOrdered B y: Barry Mathew on 12-08-2024 Monocytes/100 WBC (Bld) 7.1 % 0-10 [facility] Monocyte percentage 7.1 % 0-10 [facility] Mucus LM Ql (Urine sed)Order ed By: Barry Mathew on 12-08-2024 Mucus Ql (Urine sed) 0 SEEN /hpf [facility] Neutrophil percentageOrdered By: Barry Mathew on 12-08-2024 Neutrophils/100 WBC (Bld) 67.2 % 47-70 [facility] Neutrophil percentage 67.2 % 47-70 [facility] Nitrite Test strip Ql (U)Ord ered By: Barry Mathew on 12-08-2024 Nitrite Ql (U) Negative Negative [facility] No Panel InformationOrdered By: Barry Mathew on 12-08-2024 10 U/L Low 15-37 [facility] Nucleated red blood cell per centageOrdered By: Barry Mathew on 12-08-2024 Nucleated RBC/100 WBC (Bld) [Ratio] 0 % 0-5 [facility] Nucleated red blood cell percentage 0 % 0-5 [facility] Platelet countOrdered By: Franco Mathew on 12-08-2024 Platelets (Bld) [#/Vol] 226 10*3/uL 150-450 [facility] Platelet count 226 K/mm3 150-450 [facility] Potassium measurementOrdered By: Barry Mathew on 12-08-2024 Potassium [Moles/Vol] 3.9 mmol/L 3.5-5.1 [facility] Potassium measurement 3.9 mmol/L 3.5-5.1 [facility] Protein Test strip Ql (U)Ord ered By: Barry Mathew on 12-08-2024 Protein Ql (U) Negative Negative [facility] RBC Auto (Bld) [#/Vol]Ordere d By: Barry Mathew on 12-08-2024 RBC (Bld) [#/Vol] 4.77 10*6/uL 4.6-6.2 [facility] Automated blood erythrocyte count 4.77 M/mm3 4.6-6.2 [facility] Serum anion gap measurementO rdered By: Barry Mathew on 12-08-2024 Anion gap [Moles/Vol] 6 mmol/L 5-15 [facility] Serum anion gap measurement 6 5-15 [facility] Serum globulin measurementOr dered By: Barry Mathew on 12-08-2024 Globulin (S) [Mass/Vol] 3.8 g/dL 2.2-4.2 [facility] Serum globulin measurement 3.8 g/dL 2.2-4.2 [facility] Serum or plasma alanine wagoner otransferase (ALT) measurementOrdered By: Barry Mathew on 12-08-2024 ALT [Catalytic activity/Vol] 16 U/L 16-61 [facility] Serum or plasma albumin yayo urement (mass/volume)Ordered By: Barry Mathew on 12-08-2024 Albumin [Mass/Vol] 3.5 g/dL 3.2-5.0 [facility] Serum or plasma alkaline andrzej sphatase measurementOrdered By: Barry Mathew on 12-08-2024 ALP [Catalytic activity/Vol] 98 U/L 45-117 [facility] Serum or plasma calcium yayo urement (mass/volume)Ordered By: Barry Mathew on 12-08-2024 Calcium [Mass/Vol] 9.0 mg/dL 8.5-10.1 [facility] Serum or plasma creatinine m easurement (mass/volume)Ordered By: Barry Mathew on 12-08-2024 Creatinine [Mass/Vol] 0.85 mg/dL 0.70-1.30 [facility] Comment on above: The validity of the calculated GFR & GFRAA in patients over 70 years has not been determined. Clinical correlation is essential. Serum or plasma urea nitroge n measurement (mass/volume)Ordered By: Barry Mathew on 12-08-2024 Urea nitrogen [Mass/Vol] 12 mg/dL 7-18 [facility] Sodium levelOrdered By: Barry Mathew on 12-08-2024 Sodium [Moles/Vol] 136 mmol/L 136-145 [facility] Sodium level 136 mmol/L 136-145 [facility] Specific gravity (U) [Rel de nsity]Ordered By: Barry Mathew on 12-08-2024 Urine specific gravity measurement 1.010 1.002-1.030 [facility] Squamous epithelial cells de tection in urine sediment by light microscopyOrdered By: Barry Mathew on 12-08-2024 Epithelial cells.squamous LM Ql (Urine sed) 0-5 SEEN /hpf 0-5 [facility] Total proteinOrdered By: Silva Mathew on 12-08-2024 Protein [Mass/Vol] 7.3 g/dL 6.4-8.2 [facility] Total protein 7.3 g/dL 6.4-8.2 [facility] Urea nitrogen [Mass/Vol]Orde red By: Barry Mathew on 12-08-2024 Serum or plasma urea nitrogen measurement (mass/volume) 12 mg/dL 7-18 [facility] Urinalysis, Completeon 12-08 BACTERIA 1+ /hpf Normal None Seen [facility] Comment on above: Order Comment: NO CTOR TO SPECIFY Performed By: #### L 400.0001, M1.678 ####[facility] [address] [place], [address] EPI,SQUAMOUS 0-5 SEEN Normal 0-5 [facility] Comment on above: Order Comment: NO CTOR TO SPECIFY Performed By: #### L 400.0001, M100.678 ####[facility] [address] [place], [address] RBC 0 SEEN Normal 0-5 [facility] Comment on above: Order Comment: NO CTOR TO SPECIFY Performed By: #### L 400.0001, M100.678 ####[facility] [address] [place], [address] Mucus Ql (Urine sed) 0 SEEN Normal [facility] Comment on above: Order Comment: NO CTOR TO SPECIFY Performed By: #### L 400.0001, M100.678 ####[facility] [address] [place], [address] WBC 0 SEEN Normal 0-5 [facility] Comment on above: Order Comment: COLLE CTOR TO SPECIFY Performed By: #### L 400.0001, M100.678 ####[facility] [address] [place], [address] Urine clarityOrdered By: Silva Mathew on 12-08-2024 Clarity (U) Clear Clear [facility] Urine color determinationOrd ered By: Barry Mathew on 12-08-2024 Color (U) Yellow Yellow [facility] Urine glucose detectionOrder ed By: Barry Mathew on 12-08-2024 Glucose Ql (U) 1000 mg/dl High Normal [facility] Urine leukocyte esterase det ection by dipstickOrdered By: Barry Mathew on 12-08-2024 Leukocyte esterase Test strip Ql (U) Negative Negative [facility] Urine pHOrdered By: Barry otoole on 12-08-2024 pH (U) 6.0 [pH] 5.0 - 8.0 [facility] Urine sediment bacteria coun t by microscopy (number/high power field)Ordered By: Barry Mathew on 12-08-2024 Bacteria LM.HPF (Urine sed) [#/Area] 1 /[HPF] None Seen [facility] Urine specific gravity measu rementOrdered By: Barry Mathew on 12-08-2024 Specific gravity (U) [Rel density] 1.010 1.002-1.030 [facility] Urine total bilirubin detect ion by test stripOrdered By: Barry Mathew on 12-08-2024 Urine total bilirubin detection by test strip Negative Negative [facility] Urine urobilinogen measureme ntOrdered By: Barry Mathew on 12-08-2024 Urobilinogen Ql (U) Normal mg/dl Normal [facility] Urobilinogen Ql (U)Ordered B y: Barry Mathew on 12-08-2024 Urine urobilinogen measurement Normal mg/dl Normal [facility] White blood cell (WBC) count Ordered By: Barry Mathew on 12-08-2024 WBC (Bld) [#/Vol] 6.0 10*3/uL 4.4-11.0 [facility] White blood cell (WBC) count 6.0 K/mm3 4.4-11.0 [facility] White blood cell countOrdere d By: Barry Mathew on 12-08-2024 White blood cell count 0 SEEN /hpf 0-5 [facility] White blood cell count 0 SEEN /hpf [facility] pH (U)Ordered By: Barry garcia on 12-08-2024 Urine pH 6.0 5.0 - 8.0 [facility] ALP [Catalytic activity/Vol] Ordered By: Pedro Krishnan on 11-27-2024 Serum or plasma alkaline phosphatase measurement 107 U/L 45-117 [facility] ALT [Catalytic activity/Vol] Ordered By: Pedro Krishnan on 11-27-2024 Serum or plasma alanine aminotransferase (ALT) measurement 16 U/L 16-61 [facility] Absolute lymphocyte countOrd ered By: Pedro Krishnan on 11-27-2024 Lymphocytes Auto (Unsp spec) [#/Vol] 1.51 10*3/uL 0.83-4.51 [facility] Absolute neutrophil countOrd ered By: Pedro Krishnan on 11-27-2024 Neutrophils (Bld) [#/Vol] 6.6 10*3/uL 2.0-7.7 [facility] Absolute neutrophil count 6.6 X10^3/uL 2.0-7.7 [facility] Albumin [Mass/Vol]Ordered By : Pedro Krishnan on 11-27-2024 Serum or plasma albumin measurement (mass/volume) 3.6 g/dL 3.2-5.0 [facility] Albumin to globulin ratioOrd ered By: Pedro Krishnan on 11-27-2024 Albumin/Globulin [Mass ratio] 1.0 {ratio} 0.9-2.4 [facility] Albumin to globulin ratio 1.0 RATIO 0.9-2.4 [facility] Automated lymphocyte count a s percentage of total leukocytesOrdered By: Pedro Krishnan on 11-27-2024 Lymphocytes/100 WBC Auto (Unsp spec) 16.8 % Low 19-41 [facility] Bacteria LM.HPF (Urine sed) [#/Area]Ordered By: Pedro Krishnan on 11-27-2024 Urine sediment bacteria count by microscopy (number/high power field) RARE /hpf None Seen [facility] Basophil percentageOrdered B y: Pedro Krishnan on 11-27-2024 Basophils/100 WBC (Bld) 0.7 % 0-1 [facility] Basophil percentage 0.7 % 0-1 [facility] Bilirubin Test strip Ql (U)O rdered By: Pedro Krishnan on 11-27-2024 Bilirubin Ql (U) Negative Negative [facility] Bilirubin, totalOrdered By: Pedro Ariella on 11-27-2024 Bilirubin [Mass/Vol] 0.40 mg/dL 0.20-1.00 [facility] Comment on above: For patients on eltr ombopag therapy, use of Dimension [place] TBIL is not recommended. Bilirubin, total 0.40 mg/dL 0.20-1.00 [facility] Blood urea nitrogen (BUN)/cr eatinine ratioOrdered By: Pedro Krishnan on 11-27-2024 Urea nitrogen/Creatinine [Mass ratio] 12.7 mg/mg 08-19 [facility] Blood urea nitrogen (BUN)/creatinine ratio 12.7 RATIO 08-19 [facility] CBC W/Diff, Automatedon 11-01 Absolute Lymph 1.51 X10 3/uL Normal 0.83-4.51 [facility] Comment on above: Performed By: #### L 100.0100, L501.2450, L500.4050 ####[facility] [address] [place], [address] Absolute Neut 6.6 X10 3/uL Normal 2.0-7.7 [facility] Comment on above: Performed By: #### L 100.0100, L501.2450, L500.4050 ####[facility] [address] [place], [address] Basophils/100 WBC (Bld) 0.7 % Normal 0-1 [facility] Comment on above: Performed By: #### L 100.0100, L501.2450, L500.4050 ####[facility] [address] [place], [address] Eosinophils/100 WBC (Bld) 2.8 % Normal 0-5 [facility] Comment on above: Performed By: #### L 100.0100, L501.2450, L500.4050 ####[facility] [address] [place], [address] Erythrocyte distribution width (RBC) [Ratio] 14.2 % Normal 11.6-14.6 [facility] Comment on above: Performed By: #### L 100.0100, L501.2450, L500.4050 ####[facility] [address] [place], [address] Hematocrit (Bld) [Volume fraction] 41.1 % Normal 40-54 [facility] Comment on above: Performed By: #### L 100.0100, L501.2450, L500.4050 ####[facility] [address] [place], [address] Hemoglobin (Bld) [Mass/Vol] 14.2 g/dL Normal 13.0-16.5 [facility] Comment on above: Performed By: #### L 100.0100, L501.2450, L500.4050 ####[facility] [address] [place], [address] IG% 0.300 Normal 0.0-0.9 [facility] Comment on above: Result Comment: IG% - Immature Granulocytes (promyelocytes, myelocytes andmetamyelocytes) > 1% indicates that a LEFT SHIFT is Present. Performed By: #### L 100.0100, L501.2450, L500.4050 ####[facility] [address] [place], [address] Lymphocytes/100 WBC (Bld) 16.8 % Low 19-41 [facility] Comment on above: Performed By: #### L 100.0100, L501.2450, L500.4050 ####[facility] [address] [place], [address] MCH (RBC) [Entitic mass] 28.2 pg Normal 27.0-32.0 [facility] Comment on above: Performed By: #### L 100.0100, L501.2450, L500.4050 ####[facility] [address] [place], [address] MCHC (RBC) [Mass/Vol] 34.5 g/dL Normal 32-36 [facility] Comment on above: Performed By: #### L 100.0100, L501.2450, L500.4050 ####[facility] [address] [place], [address] MCV (RBC) [Entitic vol] 81.7 fL Normal 80-94 [facility] Comment on above: Performed By: #### L 100.0100, L501.2450, L500.4050 ####[facility] [address] [place], [address] Monocytes/100 WBC (Bld) 5.5 % Normal 0-10 [facility] Comment on above: Performed By: #### L 100.0100, L501.2450, L500.4050 ####[facility] [address] [place], [address] Neutrophils/100 WBC (Bld) 73.9 % High 47-70 [facility] Comment on above: Performed By: #### L 100.0100, L501.2450, L500.4050 ####[facility] [address] [place], [address] Nucleated RBC (Bld) [#/Vol] 0 10*3/uL Normal 0-5 [facility] Comment on above: Performed By: #### L 100.0100, L501.2450, L500.4050 ####[facility] [address] [place], [address] Platelet mean volume (Bld) [Entitic vol] 9.3 fL Normal 6.2-12.0 [facility] Comment on above: Performed By: #### L 100.0100, L501.2450, L500.4050 ####[facility] [address] [place], [address] Platelets (Bld) [#/Vol] 231 10*3/uL Normal 150-450 [facility] Comment on above: Performed By: #### L 100.0100, L501.2450, [id number] ####[facility] [address] [place], [address] RBC (Bld) [#/Vol] 5.03 10*6/uL Normal 4.6-6.2 [facility] Comment on above: Performed By: #### L 100.0100, L501.2450, [id number] ####[facility] [address] [place], [address] RDW SD 41.3 fl Normal 35.1-43.9 [facility] Comment on above: Performed By: #### L 100.0100, L501.2450, L500.4050 ####[facility] [address] [place], [address] WBC (Bld) [#/Vol] 9.0 10*3/uL Normal 4.4-11.0 [facility] Comment on above: Performed By: #### L 100.0100, L501.2450, L500.4050 ####[facility] [address] [place], [address] Calcium [Mass/Vol]Ordered By : Pedro Krishnan on 11-27-2024 Serum or plasma calcium measurement (mass/volume) 8.8 mg/dL 8.5-10.1 [facility] Carbon dioxide measurementOr dered By: Pedro Krishnan on 11-27-2024 CO2 [Moles/Vol] 22.0 mmol/L 21.0-32.0 [facility] Carbon dioxide measurement 22.0 mmol/L 21.0-32.0 [facility] Chloride measurementOrdered By: Pedro Krishnan on 11-27-2024 Chloride [Moles/Vol] 101 mmol/L 98-107 [facility] Chloride measurement 101 mmol/L 98-107 [facility] Clarity (U)Ordered By: Pedro Krishnan on 11-27-2024 Urine clarity Clear Clear [facility] Color (U)Ordered By: Pedro persaud on 11-27-2024 Urine color determination Yellow Yellow [facility] Comprehensive Metabolic Prof ilon 11-27-2024 Albumin [Mass/Vol] 3.6 g/dL Normal 3.2-5.0 [facility] Comment on above: Performed By: #### L 100.0100, L501.2450, L500.4050 ####[facility] [address] [place], [address] Albumin/Globulin [Mass ratio] 1.0 {ratio} Normal 0.9-2.4 [facility] Comment on above: Performed By: #### L 100.0100, L501.2450, L500.4050 ####[facility] [address] [place], [address] ALK P 107 U/L Normal 45-117 [facility] Comment on above: Performed By: #### L 100.0100, L501.2450, L500.4050 ####[facility] [address] [place], [address] ALT [Catalytic activity/Vol] 16 U/L Normal 16-61 [facility] Comment on above: Performed By: #### L 100.0100, L501.2450, L500.4050 ####[facility] [address] [place], [address] AST [Catalytic activity/Vol] 11 U/L Low 15-37 [facility] Comment on above: Performed By: #### L 100.0100, L501.2450, L500.4050 ####[facility] [address] [place], [address] Bilirubin [Mass/Vol] 0.40 mg/dL Normal 0.20-1.00 [facility] Comment on above: Result Comment: For patients on eltrombopag therapy, use of Dimension [place] TBIL is not recommended. Performed By: #### L 100.0100, L501.2450, L500.4050 ####[facility] [address] [place], [address] BUN/CRE 12.7 RATIO Normal 10-20 [facility] Comment on above: Performed By: #### L 100.0100, L501.2450, L500.4050 ####[facility] [address] [place], [address] CA,Total 8.8 mg/dL Normal 8.5-10.1 [facility] Comment on above: Performed By: #### L 100.0100, L501.2450, L500.4050 ####[facility] [address] [place], [address] Chloride [Moles/Vol] 101 mmol/L Normal 98-107 [facility] Comment on above: Performed By: #### L 100.0100, L501.2450, L500.4050 ####[facility] [address] [place], [address] CO2 [Moles/Vol] 22.0 mmol/L Normal 21.0-32.0 [facility] Comment on above: Performed By: #### L 100.0100, L501.2450, L500.4050 ####[facility] [address] [place], [address] Creatinine [Mass/Vol] 0.94 mg/dL Normal 0.70-1.30 [facility] Comment on above: Result Comment: The validity of the calculated GFR GFRAA in patients over70 years has not been determined. Clinical correlation isessential. Performed By: #### L 100.0100, L501.2450, L500.4050 ####[facility] [address] [place], [address] EST GFR - AA 103 mL/min Normal >60 [facility] Comment on above: Result Comment: Afri can Vietnamese GFR Calc Performed By: #### L 100.0100, L501.2450, L500.4050 ####[facility] [address] [place], [address] GAP 10 Normal 5-15 [facility] Comment on above: Performed By: #### L 100.0100, L501.2450, L500.4050 ####[facility] [address] [place], [address] GFR/1.73 sq M.predicted among non-blacks MDRD (S/P/Bld) [Vol rate/Area] 86 mL/min/{1.73_m2} Normal >60 [facility] Comment on above: Result Comment: Non- GFR Calc Performed By: #### L 100.0100, L501.2450, L500.4050 ####[facility] [address] [place], [address] Globulin (S) [Mass/Vol] 3.7 g/dL Normal 2.2-4.2 [facility] Comment on above: Performed By: #### L 100.0100, L501.2450, L500.4050 ####[facility] [address] [place], [address] Glucose [Mass/Vol] 373 mg/dL High 74-106 [facility] Comment on above: Result Comment: Gluc ose result greater than or equal to 200 mg/dLsuggests DIABETES MELLITUS per A.D.A. criteria. Performed By: #### L 100.0100, L501.2450, L500.4050 ####[facility] [address] [place], [address] Potassium [Moles/Vol] 3.8 mmol/L Normal 3.5-5.1 [facility] Comment on above: Performed By: #### L 100.0100, L501.2450, L500.4050 ####[facility] [address] [place], [address] Sodium [Moles/Vol] 133 mmol/L Low 136-145 [facility] Comment on above: Performed By: #### L 100.0100, L501.2450, L500.4050 ####[facility] [address] [place], [address] T PROT 7.3 g/dL Normal 6.4-8.2 [facility] Comment on above: Performed By: #### L 100.0100, L501.2450, L500.4050 ####[facility] [address] [place], [address] Urea nitrogen [Mass/Vol] 12 mg/dL Normal 7-18 [facility] Comment on above: Performed By: #### L 100.0100, L501.2450, L500.4050 ####[facility] [address] [place], [address] Creatinine [Mass/Vol]Ordered By: Pedro Krishnan on 11-27-2024 Serum or plasma creatinine measurement (mass/volume) 0.94 mg/dL 0.70-1.30 [facility] Emergency Department Summary on 11-27-2024 Emergency Department Summary Normal [facility] Eosinophil percentageOrdered By: Pedro Krishnan on 11-27-2024 Eosinophils/100 WBC (Bld) 2.8 % 0-5 [facility] Eosinophil percentage 2.8 % 0-5 [facility] Erythrocyte distribution wid th (RBC) [Ratio]Ordered By: Pedro Krishnan on 11-27-2024 Erythrocyte distribution width ratio 14.2 % 11.6-14.6 [facility] Erythrocyte distribution width standard deviation 41.3 fl 35.1-43.9 [facility] Erythrocyte distribution wid th ratioOrdered By: Pedro Krishnan on 11-27-2024 Erythrocyte distribution width (RBC) [Ratio] 14.2 % 11.6-14.6 [facility] Erythrocyte distribution wid th standard deviationOrdered By: Pedro Krishnan on 11-27-2024 Erythrocyte distribution width (RBC) [Ratio] 41.3 fl 35.1-43.9 [facility] Estimated glomerular filtrat ion rate (GFR) AmericanOrdered By: Pedro Krishnan on 11-27-2024 Estimated glomerular filtration rate (GFR) 103 mL/min >60 [facility] Glomerular filtration rate ( GFR) estimationOrdered By: Pedro Krishnan on 11-27-2024 GFR/1.73 sq M.predicted among non-blacks MDRD (S/P/Bld) [Vol rate/Area] 86 mL/min/{1.73_m2} >60 [facility] Comment on above: Non- GFR Calc Glomerular filtration rate (GFR) estimation 86 mL/min >60 [facility] Glucose Ql (U)Ordered By: Bridger Krishnan on 11-27-2024 Urine glucose detection 1000 mg/dl High Normal [facility] Glucose measurementOrdered B y: Pedro Krishnan on 11-27-2024 Glucose [Mass/Vol] 373 mg/dL High 74-106 [facility] Comment on above: Glucose result great er than or equal to 200 mg/dLsuggests DIABETES MELLITUS per A.D.A. criteria. Glucose measurement 373 mg/dL High 74-106 [facility] Hematocrit Auto (Bld) [Volum e fraction]Ordered By: Pedro Krishnan on 11-27-2024 Hematocrit (Bld) [Volume fraction] 41.1 % 40-54 [facility] Automated blood hematocrit (percentage) 41.1 % 40-54 [facility] Hemoglobin measurementOrdere d By: Pedro Krishnan on 11-27-2024 Hemoglobin (Bld) [Mass/Vol] 14.2 g/dL 13.0-16.5 [facility] Hemoglobin measurement 14.2 g/dL 13.0-16.5 [facility] Immature granulocytes/100 WB C Auto (Bld)Ordered By: Pedro Krishnan on 11-27-2024 Immature granulocytes/100 WBC (Bld) 0.300 % 0.0-0.9 [facility] Comment on above: IG% - Immature Granu locytes (promyelocytes, myelocytes and metamyelocytes) > 1% indicates that a LEFT SHIFT is Present. Automated immature granulocyte percentage 0.300 % 0.0-0.9 [facility] Ketones Test strip Ql (U)Ord ered By: Pedro Krishnan on 11-27-2024 Ketones Ql (U) Negative Negative [facility] Laboratory - Chemistry and C hemistry - challengeOrdered By: Pedro Krishnan on 11-27-2024 AST [Catalytic activity/Vol] 11 U/L Low 15-37 [facility] Lipaseon 11-27-2024 Lipase [Catalytic activity/Vol] 23 U/L Normal 13-75 [facility] Comment on above: Result Comment: Plea se note:LIPASE revised reference range effective 23.New Lipase methodology. Expected to produce lower valuesthan the previous assay method.NEW Reference Range: 13 - 75 U/L Performed By: #### L 100.0100, L501.2450, L500.4050 ####[facility] [address] [place], [address] Lipase measurementOrdered By : Pedro Krishnan on 11-27-2024 Lipase [Catalytic activity/Vol] 23 U/L 13-75 [facility] Comment on above: Please note:LIPASE r evised reference range effective 23. New Lipase methodology. Expected to produce lower values than the previous assay method. NEW Reference Range: 13 - 75 U/L Lipase measurement 23 U/L 13-75 [facility] Lymphocytes Auto (Unsp spec) [#/Vol]Ordered By: Pedro Krishnan on 11-27-2024 Absolute lymphocyte count 1.51 X10^3/uL 0.83-4.51 [facility] Lymphocytes/100 WBC Auto (Un sp spec)Ordered By: Pedro Krishnan on 11-27-2024 Automated lymphocyte count as percentage of total leukocytes 16.8 % Low 19-41 [facility] MCV (RBC) [Entitic vol]Order ed By: Pedro Krishnan on 11-27-2024 MCV (mean corpuscular volume) determination 81.7 fL 80-94 [facility] MCV (mean corpuscular volume ) determinationOrdered By: Pedro Krishnan on 11-27-2024 MCV (RBC) [Entitic vol] 81.7 fL 80-94 [facility] Mean corpuscular hemoglobin (MCH) determinationOrdered By: Pedro Krishnan on 11-27-2024 MCH (RBC) [Entitic mass] 28.2 pg 27.0-32.0 [facility] Mean corpuscular hemoglobin (MCH) determination 28.2 pg 27.0-32.0 [facility] Mean corpuscular hemoglobin concentration (MCHC) determinationOrdered By: Pedro Krishnan on 11-27-2024 MCHC (RBC) [Mass/Vol] 34.5 g/dL 32-36 [facility] Mean corpuscular hemoglobin concentration (MCHC) determination 34.5 g/dL 32-36 [facility] Mean platelet volume determi nationOrdered By: Pedro Krishnan on 11-27-2024 Platelet mean volume (Bld) [Entitic vol] 9.3 fL 6.2-12.0 [facility] Mean platelet volume determination 9.3 fl 6.2-12.0 [facility] Microscopic analysis of urin e for red blood cells (RBC)Ordered By: Pedro Krishnan on 11-27-2024 Microscopic analysis of urine for red blood cells (RBC) 0-5 SEEN /hpf 0-5 [facility] Monocyte percentageOrdered B y: Pedro Krishnan on 11-27-2024 Monocytes/100 WBC (Bld) 5.5 % 0-10 [facility] Monocyte percentage 5.5 % 0-10 [facility] Mucus LM Ql (Urine sed)Order ed By: Pedro Krishnan on 11-27-2024 Mucus Ql (Urine sed) 0 SEEN /hpf [facility] Mucus detection in urine sediment by light microscopy 0 SEEN /hpf [facility] Neutrophil percentageOrdered By: Pedro Krishnan on 11-27-2024 Neutrophils/100 WBC (Bld) 73.9 % High 47-70 [facility] Neutrophil percentage 73.9 % High 47-70 [facility] Nitrite Test strip Ql (U)Ord ered By: Pedro Krishnan on 11-27-2024 Nitrite Ql (U) Negative Negative [facility] No Panel InformationOrdered By: Pedro Krishnan on 11-27-2024 11 U/L Low 15-37 [facility] Nucleated red blood cell per centageOrdered By: Pedro Krishnan on 11-27-2024 Nucleated RBC/100 WBC (Bld) [Ratio] 0 % 0-5 [facility] Nucleated red blood cell percentage 0 % 0-5 [facility] Platelet countOrdered By: Bridger Krishnan on 11-27-2024 Platelets (Bld) [#/Vol] 231 10*3/uL 150-450 [facility] Platelet count 231 K/mm3 150-450 [facility] Potassium measurementOrdered By: Pedro Krishnan on 11-27-2024 Potassium [Moles/Vol] 3.8 mmol/L 3.5-5.1 [facility] Potassium measurement 3.8 mmol/L 3.5-5.1 [facility] Protein Test strip Ql (U)Ord ered By: Pedro Krishnan on 11-27-2024 Protein Ql (U) 30 mg/dl High Negative [facility] Urine protein assay by test strip, semi-quantitative 30 mg/dl High Negative [facility] RBC Auto (Bld) [#/Vol]Ordere d By: Pedro Krishnan on 11-27-2024 RBC (Bld) [#/Vol] 5.03 10*6/uL 4.6-6.2 [facility] Automated blood erythrocyte count 5.03 M/mm3 4.6-6.2 [facility] Serum anion gap measurementO rdered By: Pedro Krishnan on 11-27-2024 Anion gap [Moles/Vol] 10 mmol/L 5-15 [facility] Serum anion gap measurement 10 5-15 [facility] Serum globulin measurementOr dered By: Pedro Krishnan on 11-27-2024 Globulin (S) [Mass/Vol] 3.7 g/dL 2.2-4.2 [facility] Serum globulin measurement 3.7 g/dL 2.2-4.2 [facility] Serum or plasma alanine wagoner otransferase (ALT) measurementOrdered By: Pedro Krishnan on 11-27-2024 ALT [Catalytic activity/Vol] 16 U/L 16-61 [facility] Serum or plasma albumin yayo urement (mass/volume)Ordered By: Pedro Krishnan on 11-27-2024 Albumin [Mass/Vol] 3.6 g/dL 3.2-5.0 [facility] Serum or plasma alkaline andrzej sphatase measurementOrdered By: Pedro Krishnan on 11-27-2024 ALP [Catalytic activity/Vol] 107 U/L 45-117 [facility] Serum or plasma calcium yayo urement (mass/volume)Ordered By: Pedro Krishnan on 11-27-2024 Calcium [Mass/Vol] 8.8 mg/dL 8.5-10.1 [facility] Serum or plasma creatinine m easurement (mass/volume)Ordered By: Pedro Krishnan on 11-27-2024 Creatinine [Mass/Vol] 0.94 mg/dL 0.70-1.30 [facility] Comment on above: The validity of the calculated GFR & GFRAA in patients over 70 years has not been determined. Clinical correlation is essential. Serum or plasma urea nitroge n measurement (mass/volume)Ordered By: Pedro Krishnan on 11-27-2024 Urea nitrogen [Mass/Vol] 12 mg/dL 7-18 [facility] Sodium levelOrdered By: Vinicius Krishnan on 11-27-2024 Sodium [Moles/Vol] 133 mmol/L Low 136-145 [facility] Sodium level 133 mmol/L Low 136-145 [facility] Specific gravity (U) [Rel de nsity]Ordered By: Pedro Krishnan on 11-27-2024 Urine specific gravity measurement 1.020 1.002-1.030 [facility] Squamous epithelial cells de tection in urine sediment by light microscopyOrdered By: Pedro Krishnan on 11-27-2024 Epithelial cells.squamous LM Ql (Urine sed) 0-5 SEEN /hpf 0-5 [facility] Total proteinOrdered By: Issac Krishnan on 11-27-2024 Protein [Mass/Vol] 7.3 g/dL 6.4-8.2 [facility] Total protein 7.3 g/dL 6.4-8.2 [facility] Urea nitrogen [Mass/Vol]Orde red By: Pedro Krishnan on 11-27-2024 Serum or plasma urea nitrogen measurement (mass/volume) 12 mg/dL 7-18 [facility] Urinalysis, Completeon 11-27 BACTERIA RARE Normal None Seen [facility] Comment on above: Order Comment: CLEAN CATCH Performed By: #### L 400.0001 ####[facility] [address] [place], [address] EPI,SQUAMOUS 0-5 SEEN Normal 0-5 [facility] Comment on above: Order Comment: CLEAN CATCH Performed By: #### L 400.0001 ####[facility] [address] [facility] [address] RBC 0-5 SEEN Normal 0-5 [facility] Comment on above: Order Comment: CLEAN CATCH Performed By: #### L 400.0001 ####[facility] [address] [place], [address] WBC 0-5 SEEN Normal 0-5 [facility] Comment on above: Order Comment: CLEAN CATCH Performed By: #### L 400.0001 ####[facility] [address] [place], [address] YEAST 1+ /hpf Normal None Seen [facility] Comment on above: Order Comment: CLEAN CATCH Performed By: #### L 400.0001 ####[facility] [address] [place], [address] Mucus Ql (Urine sed) 0 SEEN Normal [facility] Comment on above: Order Comment: CLEAN CATCH Performed By: #### L 400.0001 ####[facility] [address] [place], [address] Urine blood detectionOrdered By: Pedro Krishnan on 11-27-2024 Urine blood detection 10 /ul High Negative [facility] Urine clarityOrdered By: Issac Krishnan on 11-27-2024 Clarity (U) Clear Clear [facility] Urine color determinationOrd ered By: Pedro Krishnan on 11-27-2024 Color (U) Yellow Yellow [facility] Urine glucose detectionOrder ed By: Pedro Krishnan on 11-27-2024 Glucose Ql (U) 1000 mg/dl High Normal [facility] Urine leukocyte esterase det ection by dipstickOrdered By: Pedro Krishnan on 11-27-2024 Leukocyte esterase Test strip Ql (U) Negative Negative [facility] Urine pHOrdered By: Pedro wynne on 11-27-2024 pH (U) 6.0 [pH] 5.0 - 8.0 [facility] Urine sediment bacteria coun t by microscopy (number/high power field)Ordered By: Pedro Krishnan on 11-27-2024 Bacteria LM.HPF (Urine sed) [#/Area] RARE /hpf None Seen [facility] Urine sediment yeast count b y microscopy (number/high powered field)Ordered By: Pedro Krishnan on 11-27-2024 Yeast LM.HPF (Urine sed) [#/Area] 1 /[HPF] None Seen [facility] Urine specific gravity measu rementOrdered By: Pedro Krishnan on 11-27-2024 Specific gravity (U) [Rel density] 1.020 1.002-1.030 [facility] Urine total bilirubin detect ion by test stripOrdered By: Pedro Krishnan on 11-27-2024 Urine total bilirubin detection by test strip Negative Negative [facility] Urine urobilinogen measureme ntOrdered By: Pedro Krishnan on 11-27-2024 Urobilinogen Ql (U) Normal mg/dl Normal [facility] Urobilinogen Ql (U)Ordered B y: Pedro Krishnan on 11-27-2024 Urine urobilinogen measurement Normal mg/dl Normal [facility] White blood cell (WBC) count Ordered By: Pedro Krishnan on 11-27-2024 WBC (Bld) [#/Vol] 9.0 10*3/uL 4.4-11.0 [facility] White blood cell (WBC) count 9.0 K/mm3 4.4-11.0 [facility] White blood cell countOrdere d By: Pedro Krishnan on 11-27-2024 White blood cell count 0-5 SEEN /hpf 0-5 [facility] White blood cell count 0-5 SEEN /hpf 0-5 [facility] Yeast LM.HPF (Urine sed) [#/ Area]Ordered By: Pedro Krishnan on 11-27-2024 Urine sediment yeast count by microscopy (number/high powered field) 1+ /hpf None Seen [facility] pH (U)Ordered By: Pedro perez on 11-27-2024 Urine pH 6.0 5.0 - 8.0 [facility] Absolute neutrophil countOrd ered By: Johann Lemons on 10-30-2024 Absolute neutrophil count 4.5 X10^3/uL 2.0-7.7 [facility] Basic Metabolic Profile (BMP )on 10-30-2024 BUN/CRE 21.2 RATIO High 10-20 [facility] Comment on above: Performed By: #### L 100.0100, L501.5200, L500.2500 ####[facility] [address] [place], [address] CA,Total 9.0 mg/dL Normal 8.5-10.1 [facility] Comment on above: Performed By: #### L 100.0100, L501.5200, L500.2500 ####[facility] [address] [place], [address] Chloride [Moles/Vol] 101 mmol/L Normal 98-107 [facility] Comment on above: Performed By: #### L 100.0100, L501.5200, L500.2500 ####[facility] [address] [place], [address] CO2 [Moles/Vol] 29.0 mmol/L Normal 21.0-32.0 [facility] Comment on above: Performed By: #### L 100.0100, L501.5200, L500.2500 ####[facility] [address] [place], [address] Creatinine [Mass/Vol] 0.90 mg/dL Normal 0.70-1.30 [facility] Comment on above: Result Comment: The validity of the calculated GFR GFRAA in patients over70 years has not been determined. Clinical correlation isessential. Performed By: #### L 100.0100, L501.5200, L500.2500 ####[facility] [address] [place], [address] EST GFR - AA 110 mL/min Normal >60 [facility] Comment on above: Result Comment: Afri can Vietnamese GFR Calc Performed By: #### L 100.0100, L501.5200, L500.2500 ####[facility] [address] [place], [address] GAP 7 Normal 5-15 [facility] Comment on above: Performed By: #### L 100.0100, L501.5200, L500.2500 ####[facility] [address] [place], [address] GFR/1.73 sq M.predicted among non-blacks MDRD (S/P/Bld) [Vol rate/Area] 91 mL/min/{1.73_m2} Normal >60 [facility] Comment on above: Result Comment: Non- GFR Calc Performed By: #### L 100.0100, L501.5200, L500.2500 ####[facility] [address] [place], [address] Glucose [Mass/Vol] 361 mg/dL High 74-106 [facility] Comment on above: Result Comment: Gluc ose result greater than or equal to 200 mg/dLsuggests DIABETES MELLITUS per A.D.A. criteria. Performed By: #### L 100.0100, L501.5200, L500.2500 ####[facility] [address] [place], [address] Potassium [Moles/Vol] 3.8 mmol/L Normal 3.5-5.1 [facility] Comment on above: Performed By: #### L 100.0100, L501.5200, L500.2500 ####[facility] [address] [place], [address] Sodium [Moles/Vol] 136 mmol/L Normal 136-145 [facility] Comment on above: Performed By: #### L 100.0100, L501.5200, L500.2500 ####[facility] [address] [place], [address] Urea nitrogen [Mass/Vol] 19 mg/dL High 7-18 [facility] Comment on above: Performed By: #### L 100.0100, L501.5200, L500.2500 ####[facility] [address] [place], [address] Basophil percentageOrdered B y: Johann Lemons on 10-30-2024 Basophil percentage 0.4 % 0-1 [facility] Blood urea nitrogen (BUN)/cr eatinine ratioOrdered By: Johann Lemons on 10-30-2024 Blood urea nitrogen (BUN)/creatinine ratio 21.2 RATIO High 10-20 [facility] CBC W/Diff, Automatedon 12- Absolute Lymph 1.53 X10 3/uL Normal 0.83-4.51 [facility] Comment on above: Performed By: #### L 100.0100, L501.5200, L500.2500 ####[facility] [address] [place], [address] Absolute Neut 4.5 X10 3/uL Normal 2.0-7.7 [facility] Comment on above: Performed By: #### L 100.0100, L501.5200, L500.2500 ####[facility] [address] [place], [address] Basophils/100 WBC (Bld) 0.4 % Normal 0-1 [facility] Comment on above: Performed By: #### L 100.0100, L501.5200, L500.2500 ####[facility] [address] [place], [address] Eosinophils/100 WBC (Bld) 3.5 % Normal 0-5 [facility] Comment on above: Performed By: #### L 100.0100, L501.5200, L500.2500 ####[facility] [address] [place], [address] Erythrocyte distribution width (RBC) [Ratio] 13.2 % Normal 11.6-14.6 [facility] Comment on above: Performed By: #### L 100.0100, L501.5200, L500.2500 ####[facility] [address] [place], [address] Hematocrit (Bld) [Volume fraction] 39.5 % Low 40-54 [facility] Comment on above: Performed By: #### L 100.0100, L501.5200, L500.2500 ####[facility] [address] [place], [address] Hemoglobin (Bld) [Mass/Vol] 14.2 g/dL Normal 13.0-16.5 [facility] Comment on above: Performed By: #### L 100.0100, L501.5200, L500.2500 ####[facility] [address] [place], [address] IG% 0.600 Normal 0.0-0.9 [facility] Comment on above: Result Comment: IG% - Immature Granulocytes (promyelocytes, myelocytes andmetamyelocytes) > 1% indicates that a LEFT SHIFT is Present. Performed By: #### L 100.0100, L501.5200, L500.2500 ####[facility] [address] [place], [address] Lymphocytes/100 WBC (Bld) 22.4 % Normal 19-41 [facility] Comment on above: Performed By: #### L 100.0100, L501.5200, L500.2500 ####[facility] [address] [place], [address] MCH (RBC) [Entitic mass] 29.0 pg Normal 27.0-32.0 [facility] Comment on above: Performed By: #### L 100.0100, L501.5200, L500.2500 ####[facility] [address] [place], [address] MCHC (RBC) [Mass/Vol] 35.9 g/dL Normal 32-36 [facility] Comment on above: Performed By: #### L 100.0100, L501.5200, L500.2500 ####[facility] [address] [place], [address] MCV (RBC) [Entitic vol] 80.6 fL Normal 80-94 [facility] Comment on above: Performed By: #### L 100.0100, L501.5200, L500.2500 ####[facility] [address] [place], [address] Monocytes/100 WBC (Bld) 7.2 % Normal 0-10 [facility] Comment on above: Performed By: #### L 100.0100, L501.5200, L500.2500 ####[facility] [address] [place], [address] Neutrophils/100 WBC (Bld) 65.9 % Normal 47-70 [facility] Comment on above: Performed By: #### L 100.0100, L501.5200, L500.2500 ####[facility] [address] [place], [address] Nucleated RBC (Bld) [#/Vol] 0 10*3/uL Normal 0-5 [facility] Comment on above: Performed By: #### L 100.0100, L501.5200, L500.2500 ####[facility] [address] [place], [address] Platelet mean volume (Bld) [Entitic vol] 9.1 fL Normal 6.2-12.0 [facility] Comment on above: Performed By: #### L 100.0100, L501.5200, L500.2500 ####[facility] [address] [place], [address] Platelets (Bld) [#/Vol] 158 10*3/uL Normal 150-450 [facility] Comment on above: Performed By: #### L 100.0100, L501.5200, L500.2500 ####[facility] [address] [place], [address] RBC (Bld) [#/Vol] 4.90 10*6/uL Normal 4.6-6.2 [facility] Comment on above: Performed By: #### L 100.0100, L501.5200, L500.2500 ####[facility] [address] [place], [address] RDW SD 38.2 fl Normal 35.1-43.9 [facility] Comment on above: Performed By: #### L 100.0100, L501.5200, L500.2500 ####[facility] [address] [place], [address] WBC (Bld) [#/Vol] 6.8 10*3/uL Normal 4.4-11.0 [facility] Comment on above: Performed By: #### L 100.0100, L501.5200, L500.2500 ####[facility] [address] [place], [address] Calcium [Mass/Vol]Ordered By : Johann Lemons on 10-30-2024 Serum or plasma calcium measurement (mass/volume) 9.0 mg/dL 8.5-10.1 [facility] Carbon dioxide measurementOr dered By: Johann Lemons on 10-30-2024 Carbon dioxide measurement 29.0 mmol/L 21.0-32.0 [facility] Chloride measurementOrdered By: Johann Lemons on 10-30-2024 Chloride measurement 101 mmol/L 98-107 [facility] Clarity (U)Ordered By: Roland Lemons on 10-30-2024 Urine clarity Clear Clear [facility] Color (U)Ordered By: Johann Lemons on 10-30-2024 Urine color determination Yellow Yellow [facility] Creatinine [Mass/Vol]Ordered By: Johann Lemons on 10-30-2024 Serum or plasma creatinine measurement (mass/volume) 0.90 mg/dL 0.70-1.30 [facility] Emergency Department Summary on 10-30-2024 Emergency Department Summary Normal [facility] Eosinophil percentageOrdered By: Johann Lemons on 10-30-2024 Eosinophil percentage 3.5 % 0-5 [facility] Erythrocyte distribution wid th (RBC) [Ratio]Ordered By: Johann Lemons on 10-30-2024 Erythrocyte distribution width ratio 13.2 % 11.6-14.6 [facility] Erythrocyte distribution width standard deviation 38.2 fl 35.1-43.9 [facility] Estimated glomerular filtrat ion rate (GFR) AmericanOrdered By: Johann Lemons on 10-30-2024 Estimated glomerular filtration rate (GFR) 110 mL/min >60 [facility] Glomerular filtration rate ( GFR) estimationOrdered By: Johann Lemons on 10-30-2024 Glomerular filtration rate (GFR) estimation 91 mL/min >60 [facility] Glucose Ql (U)Ordered By: Julia Lemons on 10-30-2024 Urine glucose detection 1000 mg/dl High Normal [facility] Glucose measurementOrdered B y: Johann Lemons on 10-30-2024 Glucose measurement 361 mg/dL High 74-106 [facility] Hematocrit Auto (Bld) [Volum e fraction]Ordered By: Johann Lemons on 10-30-2024 Automated blood hematocrit (percentage) 39.5 % Low 40-54 [facility] Hemoglobin measurementOrdere d By: Johann Lemons on 10-30-2024 Hemoglobin measurement 14.2 g/dL 13.0-16.5 [facility] Immature granulocytes/100 WB C Auto (Bld)Ordered By: Johann Lemons on 10-30-2024 Automated immature granulocyte percentage 0.600 % 0.0-0.9 [facility] Ketones Test strip Ql (U)Ord ered By: Johann Lemons on 10-30-2024 Urine ketones detection by test strip 5 mg/dl High Negative [facility] Lymphocytes Auto (Unsp spec) [#/Vol]Ordered By: Johann Lemons on 10-30-2024 Absolute lymphocyte count 1.53 X10^3/uL 0.83-4.51 [facility] Lymphocytes/100 WBC Auto (Un sp spec)Ordered By: Johann Lemons on 10-30-2024 Automated lymphocyte count as percentage of total leukocytes 22.4 % 19-41 [facility] M100.678on 10-30-2024 M100.678 Pending SARS-CoV-2 (COVID 19) Negative INFLUENZA A Negative INFLUENZA B Negative RSV PCR Negative Normal [facility] Comment on above: Performed By: #### M 100.678, L400.0001 ####[facility] [address] [place], [place], [id number] MCV (RBC) [Entitic vol]Order ed By: Johann Lemons on 10-30-2024 MCV (mean corpuscular volume) determination 80.6 fL 80-94 [facility] Magnesiumon 10-30-2024 Magnesium [Mass/Vol] 1.5 mg/dL Low 1.6-2.6 [facility] Comment on above: Performed By: #### L 100.0100, L501.5200, L500.2500 ####[facility] [address] [facility] [place], [address] Magnesium measurementOrdered By: Johann Lemons on 10-30-2024 Magnesium measurement 1.5 mg/dL Low 1.6-2.6 [facility] Mean corpuscular hemoglobin (MCH) determinationOrdered By: Johann Lemons on 10-30-2024 Mean corpuscular hemoglobin (MCH) determination 29.0 pg 27.0-32.0 [facility] Mean corpuscular hemoglobin concentration (MCHC) determinationOrdered By: Johann Lemons on 10-30-2024 Mean corpuscular hemoglobin concentration (MCHC) determination 35.9 g/dL 32-36 [facility] Mean platelet volume determi nationOrdered By: Johann Lemons on 10-30-2024 Mean platelet volume determination 9.1 fl 6.2-12.0 [facility] Monocyte percentageOrdered B y: Johann Lemons on 10-30-2024 Monocyte percentage 7.2 % 0-10 [facility] Neutrophil percentageOrdered By: Johann Lemons on 10-30-2024 Neutrophil percentage 65.9 % 47-70 [facility] Nucleated red blood cell per centageOrdered By: Johann Lemons on 10-30-2024 Nucleated red blood cell percentage 0 % 0-5 [facility] Platelet countOrdered By: Julia Lemons on 10-30-2024 Platelet count 158 K/mm3 150-450 [facility] Potassium measurementOrdered By: Johann Lemons on 10-30-2024 Potassium measurement 3.8 mmol/L 3.5-5.1 [facility] Protein Test strip Ql (U)Ord ered By: Johann Lemons on 10-30-2024 Urine protein assay by test strip, semi-quantitative 15 mg/dl High Negative [facility] RBC Auto (Bld) [#/Vol]Ordere d By: Johann Lemons on 10-30-2024 Automated blood erythrocyte count 4.90 M/mm3 4.6-6.2 [facility] Serum anion gap measurementO rdered By: Johann Lemons on 10-30-2024 Serum anion gap measurement 7 5-15 [facility] Sodium levelOrdered By: Keith Lemons on 10-30-2024 Sodium level 136 mmol/L 136-145 [facility] Specific gravity (U) [Rel de nsity]Ordered By: Johann Lemons on 10-30-2024 Urine specific gravity measurement 1.015 1.002-1.030 [facility] Urea nitrogen [Mass/Vol]Orde red By: Johann Lemons on 10-30-2024 Serum or plasma urea nitrogen measurement (mass/volume) 19 mg/dL High 7-18 [facility] Urinalysis, Completeon 10-30 BACTERIA 0 SEEN Normal None Seen [facility] Comment on above: Order Comment: NO CTOR TO SPECIFY Performed By: #### M 100.678, L400.0001 ####[facility] [address] [place], [address] EPI,SQUAMOUS 0 SEEN Normal 0-5 [facility] Comment on above: Order Comment: NO CTOR TO SPECIFY Performed By: #### M 100.678, L400.0001 ####[facility] [address] [place], [address] Mucus Ql (Urine sed) 0 SEEN Normal [facility] Comment on above: Order Comment: NO CTOR TO SPECIFY Performed By: #### M 100.678, L400.0001 ####[facility] [address] [place], [address] RBC 0 SEEN Normal 0-5 [facility] Comment on above: Order Comment: NO CTOR TO SPECIFY Performed By: #### M 100.678, L400.0001 ####[facility] [address] [place], [address] WBC 0 SEEN Normal 0-5 [facility] Comment on above: Order Comment: NO CTOR TO SPECIFY Performed By: #### M 100.678, L400.0001 ####[facility] [address] [place], [address] Urine total bilirubin detect ion by test stripOrdered By: Johann Lemons on 10-30-2024 Urine total bilirubin detection by test strip Negative Negative [facility] Urobilinogen Ql (U)Ordered B y: Johann Lemons on 10-30-2024 Urine urobilinogen measurement Normal mg/dl Normal [facility] White blood cell (WBC) count Ordered By: Johann Lemons on 10-30-2024 White blood cell (WBC) count 6.8 K/mm3 4.4-11.0 [facility] White blood cell countOrdere d By: Johann Lemons on 10-30-2024 White blood cell count 0 SEEN /hpf [facility] pH (U)Ordered By: Wilmer on 10-30-2024 Urine pH 6.0 5.0 - 8.0 [facility] Chest 1 View (Portable)on Chest 1 View (Portable) Normal [facility] 12 Lead EKGon 10-19-2024 12 Lead EKG Normal [facility] Absolute neutrophil countOrd ered By: Live Ashley on 10-19-2024 Absolute neutrophil count 4.7 X10^3/uL 2.0-7.7 [facility] Basic Metabolic Profile (BMP )on 10-19-2024 BUN/CRE 14.7 RATIO Normal 08-19 [facility] Comment on above: Order Comment: 'TROP ' Serial specimen #1, #2 or #3: 1 Performed By: #### L 500.2500, L501.4020, L100.0100 ####[facility] [address] [place], [address] CA,Total 8.8 mg/dL Normal 8.5-10.1 [facility] Comment on above: Order Comment: 'TROP ' Serial specimen #1, #2 or #3: 1 Performed By: #### L 500.2500, L501.4020, L100.0100 ####[facility] [address] [place], [address] Chloride [Moles/Vol] 99 mmol/L Normal 98-107 [facility] Comment on above: Order Comment: 'TROP ' Serial specimen #1, #2 or #3: 1 Performed By: #### L 500.2500, L501.4020, L100.0100 ####[facility] [address] [place], [address] CO2 [Moles/Vol] 26.0 mmol/L Normal 21.0-32.0 [facility] Comment on above: Order Comment: 'TROP ' Serial specimen #1, #2 or #3: 1 Performed By: #### L 500.2500, L501.4020, L100.0100 ####[facility] [address] [place], [address] Creatinine [Mass/Vol] 1.02 mg/dL Normal 0.70-1.30 [facility] Comment on above: Order Comment: 'TROP ' Serial specimen #1, #2 or #3: 1 Result Comment: The validity of the calculated GFR GFRAA in patients over70 years has not been determined. Clinical correlation isessential. Performed By: #### L 500.2500, L501.4020, L100.0100 ####[facility] [address] [place], [address] ECRCL 92.21 ml/min Normal [facility] Comment on above: Order Comment: 'TROP ' Serial specimen #1, #2 or #3: 1 Performed By: #### L 500.2500, L501.4020, L100.0100 ####[facility] [address] [place], [address] EST GFR - AA 94 mL/min Normal >60 [facility] Comment on above: Order Comment: 'TROP ' Serial specimen #1, #2 or #3: 1 Result Comment: Afri can Vietnamese GFR Calc Performed By: #### L 500.2500, L501.4020, L100.0100 ####[facility] [address] [place], [address] GAP 5 Normal 5-15 [facility] Comment on above: Order Comment: 'TROP ' Serial specimen #1, #2 or #3: 1 Performed By: #### L 500.2500, L501.4020, L100.0100 ####[facility] [address] [place], [address] GFR/1.73 sq M.predicted among non-blacks MDRD (S/P/Bld) [Vol rate/Area] 78 mL/min/{1.73_m2} Normal >60 [facility] Comment on above: Order Comment: 'TROP ' Serial specimen #1, #2 or #3: 1 Result Comment: Non- GFR Calc Performed By: #### L 500.2500, L501.4020, L100.0100 ####[facility] [address] [place], [address] Glucose [Mass/Vol] 494 mg/dL Invalid Interpretation Code 74-106 [facility] Comment on above: Order Comment: 'TROP ' Serial specimen #1, #2 or #3: 1 Result Comment: Crit ical Result(s) Called at: 04:42:01 10/19/2024 by:Carla Montgomery LSparr. Results read back by same.Glucose result greater than or equal to 200 mg/dLsuggests DIABETES MELLITUS per A.D.A. criteria. Performed By: #### L 500.2500, L501.4020, L100.0100 ####[facility] [address] [place], [address] Potassium [Moles/Vol] 3.7 mmol/L Normal 3.5-5.1 [facility] Comment on above: Order Comment: 'TROP ' Serial specimen #1, #2 or #3: 1 Performed By: #### L 500.2500, L501.4020, L100.0100 ####[facility] [address] [place], [address] Sodium [Moles/Vol] 130 mmol/L Low 136-145 [facility] Comment on above: Order Comment: 'TROP ' Serial specimen #1, #2 or #3: 1 Performed By: #### L 500.2500, L501.4020, L100.0100 ####[facility] [address] [place], [address] Urea nitrogen [Mass/Vol] 15 mg/dL Normal 7- [facility] Comment on above: Order Comment: 'TROP ' Serial specimen #1, #2 or #3: 1 Performed By: #### L 500.2500, L501.4020, L100.0100 ####[facility] [address] [place], [address] Basophil percentageOrdered B y: Live Ashley on 10-19-2024 Basophil percentage 1.0 % 0-1 [facility] Bedside Glucoseon 10-19-2024 FINGERSTICK GLU 263 mg/dL High 74-106 [facility] Comment on above: Result Comment: TAYLOR GEMENT OF PATIENT CARE PER NURSING PROTOCOL Performed By: #### L 501.080 ####[facility] [address] [place], [address] FINGERSTICK GLU 353 mg/dL High 74-106 [facility] Comment on above: Result Comment: TAYLOR GEMENT OF PATIENT CARE PER NURSING PROTOCOL Performed By: #### L 501.080 ####[facility] [address] [place], [address] FINGERSTICK GLU > 500 Invalid Interpretation Code 74-106 [facility] Comment on above: Result Comment: TAYLOR GEMENT OF PATIENT CARE PER NURSING PROTOCOL Performed By: #### L 501.080 ####[facility] [address] [place], [address] Blood urea nitrogen (BUN)/cr eatinine ratioOrdered By: Live Ashley on 10-19-2024 Blood urea nitrogen (BUN)/creatinine ratio 14.7 RATIO - [facility] CBC W/Diff, Automatedon 10-01 PLT EST ADEQUATE Normal ADEQ [facility] Comment on above: Performed By: #### L 500.2500, L501.4020, L100.0100 ####[facility] [address] [place], [address] RED CELL MORPH NORM C+C Normal NORM C C [facility] Comment on above: Performed By: #### L 500.2500, L501.4020, L100.0100 ####[facility] [address] [place], [address] SMEAR COMMENT SCANNED Normal [facility] Comment on above: Performed By: #### L 500.2500, L501.4020, L100.0100 ####[facility] [address] [place], [address] Calcium [Mass/Vol]Ordered By : Live Ashley on 10-19-2024 Serum or plasma calcium measurement (mass/volume) 8.8 mg/dL 8.5-10.1 [facility] Carbon dioxide measurementOr dered By: Live Ashley on 10-19-2024 Carbon dioxide measurement 26.0 mmol/L 21.0-32.0 [facility] Chest PA and Lateralon 10-19 Chest PA and Lateral Normal [facility] Chloride measurementOrdered By: Live Ashley on 10-19-2024 Chloride measurement 99 mmol/L 98-107 [facility] Clarity (U)Ordered By: Melissa Ashley on 10-19-2024 Urine clarity Clear Clear [facility] Color (U)Ordered By: Live Ashley on 10-19-2024 Urine color determination Yellow Yellow [facility] Creatinine [Mass/Vol]Ordered By: Live Ashley on 10-19-2024 Serum or plasma creatinine measurement (mass/volume) 1.02 mg/dL 0.70-1.30 [facility] Emergency Department Summary on 10-19-2024 Emergency Department Summary Normal [facility] Eosinophil percentageOrdered By: Live Ashley on 10-19-2024 Eosinophil percentage 3.0 % 0-5 [facility] Epithelial cells.squamous LM Ql (Urine sed)Ordered By: Live Ashley on 10-19-2024 Squamous epithelial cells detection in urine sediment by light microscopy 0-5 SEEN /hpf 0-5 [facility] Erythrocyte distribution wid th (RBC) [Ratio]Ordered By: Live Ashley on 10-19-2024 Erythrocyte distribution width ratio 13.2 % 11.6-14.6 [facility] Erythrocyte distribution width standard deviation 38.4 fl 35.1-43.9 [facility] Estimated glomerular filtrat ion rate (GFR) AmericanOrdered By: Live Ashley on 10-19-2024 Estimated glomerular filtration rate (GFR) 94 mL/min >60 [facility] Estimation of creatinine edinson aranceOrdered By: Live Ashley on 10-19-2024 Estimation of creatinine clearance 92.21 ml/min [facility] Glomerular filtration rate ( GFR) estimationOrdered By: Live Ashley on 10-19-2024 Glomerular filtration rate (GFR) estimation 78 mL/min >60 [facility] Glucose Ql (U)Ordered By: Dipak Ashley on 10-19-2024 Urine glucose detection 1000 mg/dl High Normal [facility] Glucose measurementOrdered B y: Live Ashley on 10-19-2024 Glucose measurement 494 mg/dL High 74-106 [facility] Glucose measurement at bedsi deOrdered By: Live Ashley on 10-19-2024 Glucose measurement at bedside 263 mg/dL High 74-106 [facility] Hematocrit Auto (Bld) [Volum e fraction]Ordered By: Live Ashley on 10-19-2024 Automated blood hematocrit (percentage) 43.9 % 40-54 [facility] Hemoglobin measurementOrdere d By: Live Ashley on 10-19-2024 Hemoglobin measurement 15.6 g/dL 13.0-16.5 [facility] Immature granulocytes/100 WB C Auto (Bld)Ordered By: Live Ashley on 10-19-2024 Automated immature granulocyte percentage 0.300 % 0.0-0.9 [facility] L501.4020on 10-19-2024 TROPONIN-I HS < 3 Low 3.0-78.0 [facility] Comment on above: Order Comment: 'TROP ' Serial specimen #1, #2 or #3: 1 Result Comment: Plea se Note: New Test Units and Gender Specific Reference Ranges. For more information see Policy Stat Procedure [place] High Sensitivity Troponin (TNIH) and attachments. Performed By: #### L 500.2500, L501.4020, L100.0100 ####[facility] [address] [place], [address] Lymphocytes Auto (Unsp spec) [#/Vol]Ordered By: Live Ashley on 10-19-2024 Absolute lymphocyte count 2.40 X10^3/uL 0.83-4.51 [facility] Lymphocytes/100 WBC Auto (Un sp spec)Ordered By: Live Ashley on 10-19-2024 Automated lymphocyte count as percentage of total leukocytes 30.0 % 19-41 [facility] MCV (RBC) [Entitic vol]Order ed By: Live Ashley on 10-19-2024 MCV (mean corpuscular volume) determination 80.0 fL 80-94 [facility] Manual differential comment Robert (Bld) [Interp]Ordered By: Live Ashley on 10-19-2024 Blood manual differential comment interpretation (narrative result) SCANNED [facility] Mean corpuscular hemoglobin (MCH) determinationOrdered By: Live Ashley on 10-19-2024 Mean corpuscular hemoglobin (MCH) determination 28.4 pg 27.0-32.0 [facility] Mean corpuscular hemoglobin concentration (MCHC) determinationOrdered By: Live Ashley on 10-19-2024 Mean corpuscular hemoglobin concentration (MCHC) determination 35.5 g/dL 32-36 [facility] Mean platelet volume determi nationOrdered By: Live Ashley on 10-19-2024 Mean platelet volume determination 10.0 fl 6.2-12.0 [facility] Monocyte percentageOrdered B y: Live Ashley on 10-19-2024 Monocyte percentage 6.6 % 0-10 [facility] Neutrophil percentageOrdered By: Live Ashley on 10-19-2024 Neutrophil percentage 59.1 % 47-70 [facility] Nucleated red blood cell per centageOrdered By: Live Ashley on 10-19-2024 Nucleated red blood cell percentage 0 % 0-5 [facility] Platelet countOrdered By: Dipak Ashley on 10-19-2024 Platelet count 150 K/mm3 150-450 [facility] Platelets LM Ql (Bld)Ordered By: Live Ashley on 10-19-2024 Platelet estimate ADEQUATE ADEQ [facility] Potassium measurementOrdered By: Live Ashley on 10-19-2024 Potassium measurement 3.7 mmol/L 3.5-5.1 [facility] RBC Auto (Bld) [#/Vol]Ordere d By: Live Ashley on 10-19-2024 Automated blood erythrocyte count 5.49 M/mm3 4.6-6.2 [facility] RBC morphology finding Nom ( Bld)Ordered By: Live Ashley on 10-19-2024 Erythrocyte morphology assessment NORM C+C NORMAL NORM C&C [facility] Serum anion gap measurementO rdered By: Live Ashley on 10-19-2024 Serum anion gap measurement 5 5-15 [facility] Sodium levelOrdered By: Stevan Ashley on 10-19-2024 Sodium level 130 mmol/L Low 136-145 [facility] Specific gravity (U) [Rel de nsity]Ordered By: Live Ashley on 10-19-2024 Urine specific gravity measurement 1.010 1.002-1.030 [facility] Troponin IOrdered By: Srinivasa Ashley on 10-19-2024 Troponin I < 3 pg/mL Low 3.0-78.0 [facility] Urea nitrogen [Mass/Vol]Orde red By: Live Ashley on 10-19-2024 Serum or plasma urea nitrogen measurement (mass/volume) 15 mg/dL 7-18 [facility] Urinalysis, Completeon 10-19 EPI,SQUAMOUS 0-5 SEEN Normal 0-5 [facility] Comment on above: Order Comment: CLEAN CATCH Performed By: #### L 400.0001 ####[facility] [address] [facility] [id number] BACTERIA 0 SEEN Normal None Seen [facility] Comment on above: Order Comment: CLEAN CATCH Performed By: #### L 400.0001 ####[facility] [address] [facility] [id number] Mucus Ql (Urine sed) 0 SEEN Normal [facility] Comment on above: Order Comment: CLEAN CATCH Performed By: #### L 400.0001 ####[facility] [address] [facility] [address] RBC 0 SEEN Normal 0-5 [facility] Comment on above: Order Comment: CLEAN CATCH Performed By: #### L 400.0001 ####[facility] [address] [place], [address] WBC 0 SEEN Normal 0-5 [facility] Comment on above: Order Comment: CLEAN CATCH Performed By: #### L 400.0001 ####[facility] [address] [place], [place], [id number] Urine total bilirubin detect ion by test stripOrdered By: Live Ashley on 10-19-2024 Urine total bilirubin detection by test strip Negative Negative [facility] Urobilinogen Ql (U)Ordered B y: Live Ashley on 10-19-2024 Urine urobilinogen measurement Normal mg/dl Normal [facility] White blood cell (WBC) count Ordered By: Live Ashley on 10-19-2024 White blood cell (WBC) count 8.0 K/mm3 4.4-11.0 [facility] White blood cell countOrdere d By: Live sAhley on 10-19-2024 White blood cell count 0 SEEN /hpf [facility] pH (U)Ordered By: Live can on 10-19-2024 Urine pH 6.5 5.0 - 8.0 [facility] Emergency Department Summary on 08-10-2024 Emergency Department Summary Normal [facility] CNOVon 05-10-2024 CNOV Office Visit (UCWSTR ) JERALD YODER ([id number]) 1960 M Date Time Provider Department 05/10/24 7:30 PM [facility] During your visit today, we recorded the following information about you: Temperature Pulse Respiration Blood pressure 97.5 degrees 72/minute 20/minute 135/81 Weight 101 kg Rosa Quinones 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 Requesting ear irrigation. The history is provided by the patient. No language path was used. Ear Problem There is pain [...] Vaping Use (more content not included)... Normal [facility] Absolute lymphocyte countOrd ered By: Johann Lemons on 03-08-2024 Lymphocytes Auto (Unsp spec) [#/Vol] 1.65 10*3/uL 0.83-4.51 [facility] Automated lymphocyte count a s percentage of total leukocytesOrdered By: Johann Lemons on 03-08-2024 Lymphocytes/100 WBC Auto (Unsp spec) 22.8 % 19-41 [facility] Basophil percentageOrdered B y: Johann Lemons on 03-08-2024 Basophils/100 WBC (Bld) 0.6 % 0-1 [facility] Bilirubin [Mass/Vol] 0.60 mg/dL 0.20-1.00 [facility] Comment on above: For patients on eltr ombopag therapy, use of Dimension [place] TBIL is not recommended. Chloride [Moles/Vol] 97 mmol/L 98-107 [facility] Eosinophils/100 WBC (Bld) 3.9 % 0-5 [facility] Glucose [Mass/Vol] 520 mg/dL 74-106 [facility] Comment on above: Critical Result(s) C alled at: 07:30:39 03/08/2024 by: Darrell Santos to Dawna Vazquez. Results read back by same.Glucose result greater than or equal to 200 mg/dLsuggests DIABETES MELLITUS per A.D.A. criteria. Hemoglobin (Bld) [Mass/Vol] 14.8 g/dL 13.0-16.5 [facility] Monocytes/100 WBC (Bld) 6.9 % 0-10 [facility] Neutrophils (Bld) [#/Vol] 4.8 10*3/uL 2.0-7.7 [facility] Neutrophils/100 WBC (Bld) 65.4 % 47-70 [facility] Potassium [Moles/Vol] 4.0 mmol/L 3.5-5.1 [facility] Protein [Mass/Vol] 7.2 g/dL 6.4-8.2 [facility] Sodium [Moles/Vol] 134 mmol/L 136-145 [facility] WBC (Bld) [#/Vol] 7.3 10*3/uL 4.4-11.0 [facility] Determination of erythrocyte mean corpuscular volume (MCV)Ordered By: Johann Lemons on 03-08-2024 MCV (RBC) [Entitic vol] 82.2 fL 80-94 [facility] Direct bilirubinOrdered By: Johann Lemons on 03-08-2024 Bilirubin.direct [Mass/Vol] 0.19 mg/dL 0.00-0.30 [facility] Erythrocyte distribution wid th ratioOrdered By: Johann Leomns on 03-08-2024 Erythrocyte distribution width (RBC) [Ratio] 13.3 % 11.6-14.6 [facility] Erythrocyte distribution wid th standard deviationOrdered By: Johann Lemons on 03-08-2024 Erythrocyte distribution width (RBC) [Entitic vol] 39.7 fL 35.1-43.9 [facility] Hematocrit Auto (Bld) [Volum e fraction]Ordered By: Johann Lemons on 03-08-2024 Hematocrit (Bld) [Volume fraction] 42.9 % 40-54 [facility] Immature granulocytes/100 WB C Auto (Bld)Ordered By: Johann Lemons on 03-08-2024 Immature granulocytes/100 WBC (Bld) 0.400 % 0.0-0.9 [facility] Comment on above: IG% - Immature Granu locytes (promyelocytes, myelocytes and metamyelocytes) > 1% indicates that a LEFT SHIFT is Present. Laboratory - Chemistry and C hemistry - challengeOrdered By: Johann Lemons on 03-08-2024 ALP [Catalytic activity/Vol] 84 U/L 45-117 [facility] ALT [Catalytic activity/Vol] 22 U/L 16-61 [facility] CO2 [Moles/Vol] 31.0 mmol/L 21.0-32.0 [facility] Globulin (S) [Mass/Vol] 3.5 g/dL 2.2-4.2 [facility] Lipase [Catalytic activity/Vol] 17 U/L 13-75 [facility] Comment on above: Please note:LIPASE r evised reference range effective 23. New Lipase methodology. Expected to produce lower values than the previous assay method. NEW Reference Range: 13 - 75 U/L Urea nitrogen/Creatinine [Mass ratio] 16.7 mg/mg 10-20 [facility] Laboratory - Hematology and Cell countsOrdered By: Johann Lemons on 03-08-2024 MCH (RBC) [Entitic mass] 28.4 pg 27.0-32.0 [facility] MCHC (RBC) [Mass/Vol] 34.5 g/dL 32-36 [facility] Nucleated RBC/100 WBC (Bld) [Ratio] 0 % 0-5 [facility] Platelet mean volume (Bld) [Entitic vol] 9.6 fL 6.2-12.0 [facility] Platelets (Bld) [#/Vol] 194 10*3/uL 150-450 [facility] No Panel InformationOrdered By: Johann Lemons on 03-08-2024 Estimated Creatinine Clearance Calc 99.26 ml/min [facility] Estimated GFR (MDRD) Amer 102 mL/min >60 [facility] Comment on above: GFR Calc Estimated GFR (MDRD) Non-Af Amer 84 mL/min >60 [facility] Comment on above: Non- GFR Calc RBC Auto (Bld) [#/Vol]Ordere d By: Johann Lemons on 03-08-2024 RBC (Bld) [#/Vol] 5.22 10*6/uL 4.6-6.2 [facility] Serum or plasma calcium yayo urement (mass/volume)Ordered By: Johann Lemons on 03-08-2024 Calcium [Mass/Vol] 9.5 mg/dL 8.5-10.1 [facility] Serum or plasma creatinine m easurement (mass/volume)Ordered By: Johann Lemons on 03-08-2024 Creatinine [Mass/Vol] 0.96 mg/dL 0.70-1.30 [facility] Comment on above: The validity of the calculated GFR & GFRAA in patients over 70 years has not been determined. Clinical correlation is essential. Serum or plasma urea nitroge n measurement (mass/volume)Ordered By: Johann Lemons on 03-08-2024 Urea nitrogen [Mass/Vol] 16 mg/dL 7-18 [facility] Thin prep Papanicolaou smear with manual screeningOrdered By: Johann Lemons on 03-08-2024 Thin prep Papanicolaou smear with manual screening 3.7 g/dL 3.2-5.0 [facility] Thin prep Papanicolaou smear with manual screening 12 U/L 15-37 [facility] Thin prep Papanicolaou smear with manual screening 6 5-15 [facility] Absolute lymphocyte countOrd ered By: Keenan Wu on 02-07-2024 Lymphocytes Auto (Unsp spec) [#/Vol] 1.71 10*3/uL 0.83-4.51 [facility] Automated lymphocyte count a s percentage of total leukocytesOrdered By: Keenan Wu on 02-07-2024 Lymphocytes/100 WBC Auto (Unsp spec) 17.4 % 19-41 [facility] Basophil percentageOrdered B y: Keenan Wu on 02-07-2024 Basophil percentage 0 SEEN /hpf 0-5 [facility] Basophils/100 WBC (Bld) 0.5 % 0-1 [facility] Bilirubin [Mass/Vol] 0.60 mg/dL 0.20-1.00 [facility] Comment on above: For patients on eltr ombopag therapy, use of Dimension [place] TBIL is not recommended. Chloride [Moles/Vol] 98 mmol/L 98-107 [facility] Eosinophils/100 WBC (Bld) 3.1 % 0-5 [facility] Glucose [Mass/Vol] 461 mg/dL 74-106 [facility] Comment on above: Critical Result(s) C alled at: 21:52:34 02/07/2024 by: GLORIA MORA TO MMARTIN2. Results read back by same.Glucose result greater than or equal to 200 mg/dLsuggests DIABETES MELLITUS per A.D.A. criteria. Hemoglobin (Bld) [Mass/Vol] 15.4 g/dL 13.0-16.5 [facility] Monocytes/100 WBC (Bld) 5.4 % 0-10 [facility] Neutrophils (Bld) [#/Vol] 7.2 10*3/uL 2.0-7.7 [facility] Neutrophils/100 WBC (Bld) 73.2 % 47-70 [facility] Potassium [Moles/Vol] 3.9 mmol/L 3.5-5.1 [facility] Protein [Mass/Vol] 7.5 g/dL 6.4-8.2 [facility] Sodium [Moles/Vol] 134 mmol/L 136-145 [facility] WBC (Bld) [#/Vol] 9.9 10*3/uL 4.4-11.0 [facility] Bilirubin Test strip Ql (U)O rdered By: Keenan Wu on 02-07-2024 Bilirubin Ql (U) Negative Negative [facility] Determination of erythrocyte mean corpuscular volume (MCV)Ordered By: Keenan Wu on 02-07-2024 MCV (RBC) [Entitic vol] 82.1 fL 80-94 [facility] Erythrocyte distribution wid th ratioOrdered By: Keenan Wu on 02-07-2024 Erythrocyte distribution width (RBC) [Ratio] 13.6 % 11.6-14.6 [facility] Erythrocyte distribution wid th standard deviationOrdered By: Keenan Wu on 02-07-2024 Erythrocyte distribution width (RBC) [Entitic vol] 40.1 fL 35.1-43.9 [facility] Hematocrit Auto (Bld) [Volum e fraction]Ordered By: Keenan Wu on 02-07-2024 Hematocrit (Bld) [Volume fraction] 44.1 % 40-54 [facility] Immature granulocytes/100 WB C Auto (Bld)Ordered By: Keenan Wu on 02-07-2024 Immature granulocytes/100 WBC (Bld) 0.400 % 0.0-0.9 [facility] Comment on above: IG% - Immature Granu locytes (promyelocytes, myelocytes and metamyelocytes) > 1% indicates that a LEFT SHIFT is Present. Ketones Test strip Ql (U)Ord ered By: Keenan Wu on 02-07-2024 Ketones Ql (U) Negative Negative [facility] Laboratory - Chemistry and C hemistry - challengeOrdered By: Keenan Wu on 02-07-2024 Albumin/Globulin [Mass ratio] 1.1 {ratio} 0.9-2.4 [facility] ALP [Catalytic activity/Vol] 105 U/L 45-117 [facility] ALT [Catalytic activity/Vol] 20 U/L 16-61 [facility] CO2 [Moles/Vol] 30.0 mmol/L 21.0-32.0 [facility] Globulin (S) [Mass/Vol] 3.6 g/dL 2.2-4.2 [facility] Urea nitrogen/Creatinine [Mass ratio] 17.4 mg/mg 10-20 [facility] Laboratory - Drug toxicology Ordered By: Keenan uW on 02-07-2024 Amphetamines Ql (U) Negative <1000 ng/mL [facility] Benzodiazepines Ql (U) Negative < 200 ng/mL [facility] Cannabinoids Screen Ql (U) Negative < 50 ng/mL [facility] Cocaine Ql (U) Negative < 300 ng/mL [facility] Opiates Ql (U) Negative < 300 ng/mL [facility] Laboratory - Hematology and Cell countsOrdered By: Keenan Wu on 02-07-2024 MCH (RBC) [Entitic mass] 28.7 pg 27.0-32.0 [facility] MCHC (RBC) [Mass/Vol] 34.9 g/dL 32-36 [facility] Nucleated RBC/100 WBC (Bld) [Ratio] 0 % 0-5 [facility] Platelet mean volume (Bld) [Entitic vol] 9.6 fL 6.2-12.0 [facility] Platelets (Bld) [#/Vol] 255 10*3/uL 150-450 [facility] Mucus LM Ql (Urine sed)Order ed By: Keenan Wu on 02-07-2024 Mucus Ql (Urine sed) 0 SEEN /hpf [facility] Nitrite Test strip Ql (U)Ord ered By: Keenan Wu on 02-07-2024 Nitrite Ql (U) Negative Negative [facility] No Panel InformationOrdered By: Keenan Wu on 02-07-2024 Ethyl Alcohol Level < 3.0 mg/dL [facility] Comment on above: The serum:whole bloo d ethanol ratio is approximately 1.14and varies slightly with hematocrit. Medical Alcohol reference interval and critical value innon-tolerant individuals; 50 - 100 Impairment 100 Intoxication 100 - 250 Severe Poisoning 250 - 400 Deep/possible fatal coma MDMA (Ecstasy) Screen Negative < 500 ng/mL [facility] Urine Barbiturates Screen Negative < 200 ng/mL [facility] Urine Drug Screen Comment [facility] Comment on above: CONFIRMATORY TESTING FOR ALL [...] Methadone Screen Negative < 300 ng/mL [facility] Urine RBC 0 SEEN /hpf 0-5 [facility] Estimated Creatinine Clearance Calc 87.42 ml/min [facility] Estimated GFR (MDRD) Amer 88 mL/min >60 [facility] Comment on above: GFR Calc Estimated GFR (MDRD) Non-Af Amer 72 mL/min >60 [facility] Comment on above: Non- GFR Calc Protein Test strip Ql (U)Ord ered By: Keenan Wu on 02-07-2024 Protein Ql (U) 15 mg/dl Negative [facility] RBC Auto (Bld) [#/Vol]Ordere d By: Keenan uW on 02-07-2024 RBC (Bld) [#/Vol] 5.37 10*6/uL 4.6-6.2 [facility] Serum or plasma calcium yayo urement (mass/volume)Ordered By: Keenan Wu on 02-07-2024 Calcium [Mass/Vol] 10.2 mg/dL 8.5-10.1 [facility] Serum or plasma creatinine m easurement (mass/volume)Ordered By: Keenan Wu on 02-07-2024 Creatinine [Mass/Vol] 1.09 mg/dL 0.70-1.30 [facility] Comment on above: The validity of the calculated GFR & GFRAA in patients over 70 years has not been determined. Clinical correlation is essential. Serum or plasma urea nitroge n measurement (mass/volume)Ordered By: Keenan Wu on 02-07-2024 Urea nitrogen [Mass/Vol] 19 mg/dL 7-18 [facility] Squamous epithelial cells de tection in urine sediment by light microscopyOrdered By: Keenan Wu on 02-07-2024 Epithelial cells.squamous LM Ql (Urine sed) 0 SEEN /hpf 0-5 [facility] Thin prep Papanicolaou smear with manual screeningOrdered By: Keenan Wu on 02-07-2024 Thin prep Papanicolaou smear with manual screening 379 mg/dL 74-106 [facility] Comment on above: MANAGEMENT OF PATIEN T CARE PER NURSING PROTOCOL Thin prep Papanicolaou smear with manual screening 3.9 g/dL 3.2-5.0 [facility] Thin prep Papanicolaou smear with manual screening 12 U/L 15-37 [facility] Thin prep Papanicolaou smear with manual screening 6 5-15 [facility] Urine blood detectionOrdered By: Keenan Wu on 02-07-2024 RBC Ql (U) Negative Negative [facility] Urine clarityOrdered By: Osvaldo Wu on 02-07-2024 Clarity (U) Clear Clear [facility] Urine color determinationOrd ered By: Keenan Wu on 02-07-2024 Color (U) Yellow Yellow [facility] Urine glucose detectionOrder ed By: Keenan Wu on 02-07-2024 Glucose Ql (U) 1000 mg/dl Normal [facility] Urine leukocyte esterase det ection by dipstickOrdered By: Keenan Wu on 02-07-2024 Leukocyte esterase Test strip Ql (U) Negative Negative [facility] Urine pHOrdered By: Keenan overton on 02-07-2024 pH (U) 6.0 [pH] 5.0 - 8.0 [facility] Urine phencyclidine (PCP) de tectionOrdered By: Keenan Wu on 02-07-2024 Phencyclidine Ql (U) Negative < 25 ng/mL [facility] Urine sediment bacteria coun t by microscopy (number/high power field)Ordered By: Keenan Wu on 02-07-2024 Bacteria LM.HPF (Urine sed) [#/Area] 0 /[HPF] None Seen [facility] Urine specific gravity measu rementOrdered By: Keenan Wu on 02-07-2024 Specific gravity (U) [Rel density] 1.015 1.002-1.030 [facility] Urine urobilinogen measureme ntOrdered By: Keenan Wu on 02-07-2024 Urobilinogen Ql (U) Normal mg/dl Normal [facility] Amorphous sediment detection in urine sediment by light microscopyOrdered By: Shania Disla on 01-27-2024 Amorphous sediment LM Ql (Urine sed) 0 SEEN [facility] Basophil percentageOrdered B y: Shania Disla on 01-27-2024 Basophil percentage 0 SEEN /hpf 0-5 [facility] Bilirubin Test strip Ql (U)O rdered By: Shania Disla on 01-27-2024 Bilirubin Ql (U) Negative Negative [facility] Calcium oxalate crystals det ection in urine sediment by light microscopyOrdered By: Shania Disla on 01-27-2024 Calcium oxalate crystals LM Ql (Urine sed) 0 SEEN /hpf [facility] Hyaline casts LM.LPF (Urine sed) [#/Area]Ordered By: Shania Disla on 01-27-2024 Hyaline casts (Urine sed) [#/Area] 0 /[LPF] 0-5 [facility] Ketones Test strip Ql (U)Ord ered By: Shania Disla on 01-27-2024 Ketones Ql (U) Negative Negative [facility] Magnesium ammonium phosphate crystal detectionOrdered By: Shania Disla on 01-27-2024 Triple phosphate crystals LM Ql (Urine sed) 0 SEEN /hpf [facility] Mucus LM Ql (Urine sed)Order ed By: Shania Disla on 01-27-2024 Mucus Ql (Urine sed) 0 SEEN /hpf [facility] Nitrite Test strip Ql (U)Ord ered By: Shania Disla on 01-27-2024 Nitrite Ql (U) Negative Negative [facility] No Panel InformationOrdered By: Shania Disla on 01-27-2024 Urine RBC 0 SEEN /hpf 0-5 [facility] Protein Test strip Ql (U)Ord ered By: Shania Disla on 01-27-2024 Protein Ql (U) Negative Negative [facility] Squamous epithelial cells de tection in urine sediment by light microscopyOrdered By: Shania Disla on 01-27-2024 Epithelial cells.squamous LM Ql (Urine sed) 5-10 SEEN /hpf 0-5 [facility] Thin prep Papanicolaou smear with manual screeningOrdered By: Shania Disla on 01-27-2024 Thin prep Papanicolaou smear with manual screening 277 mg/dL 74-106 [facility] Comment on above: MANAGEMENT OF PATIEN T CARE PER NURSING PROTOCOL Urine blood detectionOrdered By: Shania Disla on 01-27-2024 RBC Ql (U) Negative Negative [facility] Urine clarityOrdered By: Anamaria Disla on 01-27-2024 Clarity (U) Clear Clear [facility] Urine coarse granular cast d etectionOrdered By: Shania Disla on 01-27-2024 Coarse Granular Casts LM Ql (Urine sed) 0 SEEN /lpf 0-5 /lpf [facility] Urine color determinationOrd ered By: Shania Disla on 01-27-2024 Color (U) Straw Yellow [facility] Urine glucose detectionOrder ed By: Shania Disla on 01-27-2024 Glucose Ql (U) 1000 mg/dl Normal [facility] Urine leukocyte esterase det ection by dipstickOrdered By: Shania Disla on 01-27-2024 Leukocyte esterase Test strip Ql (U) Negative Negative [facility] Urine pHOrdered By: Shania Disla on 01-27-2024 pH (U) 6.0 [pH] 5.0 - 8.0 [facility] Urine sediment Trichomonas s pecies count by microscopy (number/low power field)Ordered By: Shania Disla on 01-27-2024 Trichomonas sp LM.LPF (Urine sed) [#/Area] 0 SEEN /hpf None Seen [facility] Urine sediment bacteria coun t by microscopy (number/high power field)Ordered By: Shania Disla on 01-27-2024 Bacteria LM.HPF (Urine sed) [#/Area] 0 /[HPF] None Seen [facility] Urine sediment erythrocyte c ast detection by light microscopyOrdered By: Shania Disla on 01-27-2024 RBC casts LM Ql (Urine sed) 0 SEEN /lpf None Seen [facility] Urine sediment fine granular cast count by microscopy (number/low power field)Ordered By: Shania Disla on 01-27-2024 Fine Granular Casts LM.LPF (Urine sed) [#/Area] 0 SEEN /lpf 0-5 [facility] Urine sediment leukocyte pooja t count by microscopy (number/low power field)Ordered By: Shania Disla on 01-27-2024 WBC casts LM.LPF (Urine sed) [#/Area] 0 SEEN /lpf None Seen [facility] Urine sediment unidentified crystal count by microscopy (number/high powered field)Ordered By: Shania Disla on 01-27-2024 Unidentified crystals LM.HPF (Urine sed) [#/Area] 0 SEEN /hpf None Seen [facility] Urine sediment uric acid cry stal count by microscopy (number/high power field)Ordered By: Shania Disla on 01-27-2024 Urate crystals LM.HPF (Urine sed) [#/Area] 0 /[HPF] [facility] Urine sediment yeast count b y microscopy (number/high powered field)Ordered By: Shania Disla on 01-27-2024 Yeast LM.HPF (Urine sed) [#/Area] RARE /hpf None Seen [facility] Urine specific gravity measu rementOrdered By: Shania Disla on 01-27-2024 Specific gravity (U) [Rel density] 1.015 1.002-1.030 [facility] Urine urobilinogen measureme ntOrdered By: Shania Disla on 01-27-2024 Urobilinogen Ql (U) Normal mg/dl Normal [facility] Waxy casts detection in urin e sediment by light microscopyOrdered By: Shania Disla on 01-27-2024 Waxy casts LM Ql (Urine sed) 0 SEEN /lpf None Seen [facility] Absolute lymphocyte countOrd ered By: Shania Disla on 01-26-2024 Lymphocytes Auto (Unsp spec) [#/Vol] 0.82 10*3/uL 0.83-4.51 [facility] Automated lymphocyte count a s percentage of total leukocytesOrdered By: Shania Disla on 01-26-2024 Lymphocytes/100 WBC Auto (Unsp spec) 8.4 % 19-41 [facility] Basophil percentageOrdered B y: Shania Disla on 01-26-2024 Basophils/100 WBC (Bld) 0.2 % 0-1 [facility] Bilirubin [Mass/Vol] 0.70 mg/dL 0.20-1.00 [facility] Comment on above: For patients on eltr ombopag therapy, use of Dimension [place] TBIL is not recommended. Chloride [Moles/Vol] 100 mmol/L 98-107 [facility] Eosinophils/100 WBC (Bld) 1.8 % 0-5 [facility] Glucose [Mass/Vol] 553 mg/dL 74-106 [facility] Comment on above: Glucose result great er than or equal to 200 mg/dLsuggests DIABETES MELLITUS per A.D.A. criteria. Hemoglobin (Bld) [Mass/Vol] 14.3 g/dL 13.0-16.5 [facility] Monocytes/100 WBC (Bld) 6.3 % 0-10 [facility] Neutrophils (Bld) [#/Vol] 8.1 10*3/uL 2.0-7.7 [facility] Neutrophils/100 WBC (Bld) 83.0 % 47-70 [facility] Potassium [Moles/Vol] 4.2 mmol/L 3.5-5.1 [facility] Protein [Mass/Vol] 6.8 g/dL 6.4-8.2 [facility] Sodium [Moles/Vol] 135 mmol/L 136-145 [facility] Comment on above: Critical Result(s) C alled at: 00:43:16 01/27/2024 by: Britney Beasley to [employer]. Results read back by same. WBC (Bld) [#/Vol] 9.8 10*3/uL 4.4-11.0 [facility] Determination of erythrocyte mean corpuscular volume (MCV)Ordered By: Shania Disla on 01-26-2024 MCV (RBC) [Entitic vol] 82.4 fL 80-94 [facility] Direct bilirubinOrdered By: Shania Disla on 01-26-2024 Bilirubin.direct [Mass/Vol] 0.20 mg/dL 0.00-0.30 [facility] Erythrocyte distribution wid th ratioOrdered By: Shania Disla on 01-26-2024 Erythrocyte distribution width (RBC) [Ratio] 13.4 % 11.6-14.6 [facility] Erythrocyte distribution wid th standard deviationOrdered By: Shania Disla on 01-26-2024 Erythrocyte distribution width (RBC) [Entitic vol] 39.9 fL 35.1-43.9 [facility] Hematocrit Auto (Bld) [Volum e fraction]Ordered By: Shania Disla on 01-26-2024 Hematocrit (Bld) [Volume fraction] 40.8 % 40-54 [facility] Immature granulocytes/100 WB C Auto (Bld)Ordered By: Shania Disla on 01-26-2024 Immature granulocytes/100 WBC (Bld) 0.300 % 0.0-0.9 [facility] Comment on above: IG% - Immature Granu locytes (promyelocytes, myelocytes and metamyelocytes) > 1% indicates that a LEFT SHIFT is Present. Laboratory - Chemistry and C hemistry - challengeOrdered By: Shania Disla on 01-26-2024 ALP [Catalytic activity/Vol] 71 U/L 45-117 [facility] ALT [Catalytic activity/Vol] 24 U/L 16-61 [facility] CO2 [Moles/Vol] 30.0 mmol/L 21.0-32.0 [facility] Globulin (S) [Mass/Vol] 3.2 g/dL 2.2-4.2 [facility] Urea nitrogen/Creatinine [Mass ratio] 12.5 mg/mg 10-20 [facility] Laboratory - Hematology and Cell countsOrdered By: Shaniajazmin Disla on 01-26-2024 MCH (RBC) [Entitic mass] 28.9 pg 27.0-32.0 [facility] MCHC (RBC) [Mass/Vol] 35.0 g/dL 32-36 [facility] Nucleated RBC/100 WBC (Bld) [Ratio] 0 % 0-5 [facility] Platelet mean volume (Bld) [Entitic vol] 9.4 fL 6.2-12.0 [facility] Platelets (Bld) [#/Vol] 167 10*3/uL 150-450 [facility] Laboratory - Microbiology an d Antimicrobial susceptibilityOrdered By: Shania Disla on 01-26-2024 SARS-CoV-2 (COVID-19) RNA IOANA+probe Ql (Unsp spec) [facility] No Panel InformationOrdered By: Shania Disla on 01-26-2024 Estimated Creatinine Clearance Calc 85.08 ml/min [facility] Estimated GFR (MDRD) Amer 85 mL/min >60 [facility] Comment on above: GFR Calc Estimated GFR (MDRD) Non-Af Amer 70 mL/min >60 [facility] Comment on above: Non- GFR Calc RBC Auto (Bld) [#/Vol]Ordere d By: Shania Disla on 01-26-2024 RBC (Bld) [#/Vol] 4.95 10*6/uL 4.6-6.2 [facility] Serum or plasma acetone yayo urement (mass/volume)Ordered By: Shania Disla on 01-26-2024 Acetone [Mass/Vol] Negative NEG [facility] Serum or plasma calcium yyao urement (mass/volume)Ordered By: Shania Disla on 01-26-2024 Calcium [Mass/Vol] 9.3 mg/dL 8.5-10.1 [facility] Serum or plasma creatinine m easurement (mass/volume)Ordered By: Shania Disla on 01-26-2024 Creatinine [Mass/Vol] 1.12 mg/dL 0.70-1.30 [facility] Comment on above: The validity of the calculated GFR & GFRAA in patients over 70 years has not been determined. Clinical correlation is essential. Serum or plasma urea nitroge n measurement (mass/volume)Ordered By: Shania Disla on 01-26-2024 Urea nitrogen [Mass/Vol] 14 mg/dL 7-18 [facility] Thin prep Papanicolaou smear with manual screeningOrdered By: Shania Disla on 01-26-2024 Thin prep Papanicolaou smear with manual screening 3.6 g/dL 3.2-5.0 [facility] Thin prep Papanicolaou smear with manual screening 16 U/L 15-37 [facility] Thin prep Papanicolaou smear with manual screening 5 5-15 [facility] Erythrocyte sedimentation ra teOrdered By: Linden Chavez on 01-05-2024 ESR (Bld) [Velocity] 3 mm/h 0-20 [facility] No Panel InformationOrdered By: Linden Chavez on 01-05-2024 C-Reactive Protein Extended Range 3.41 mg/L 0.0-3.0 [facility] Comment on above: C-Reactive Protein ( CRP) provides useful information for thediagnosis, therapy and monitoring of inflammatory processesand associated diseases. For the evaluation of Relative Riskfor Cardiovascular Disease, a High Sensitivity CRP (HSCRP)should be ordered. Endomysial IgA Antibody Negative Negative [facility] Serum or plasma IgA measurem ent (mass/volume)Ordered By: Linden Chavez on 01-05-2024 IgA [Mass/Vol] 363 mg/dL 61-437 [facility] Comment on above: Performed at: [place] [id number] Director: Rasheed Denney PhD, Phone: [phone] Serum or plasma thyroid stim ulating hormone (TSH) measurement (units/volume)Ordered By: Linden Chavez on 01-05-2024 TSH Qn 8.45 uIU/mL 0.358-3.74 [facility] Serum tissue transglutaminas e IgA antibody assay (units/volume)Ordered By: Linden Chavez on 01-05-2024 tTG IgA Qn (S) <2 U/mL 0-3 [facility] Comment on above: Negative 0 - 3 Weak Positive 4 - 10 Positive >10 Tissue Transglutaminase (tTG) has been identified as the endomysial antigen. Studies have demonstr- ated that endomysial IgA antibodies have over 99% specificity for gluten sensitive enteropathy. Whole blood hemoglobin A1c/t otal hemoglobin ratio (mass fraction)Ordered By: Linden Chavez on 01-05-2024 HbA1c (Bld) [Mass fraction] 12.2 % 3.8-5.6 [facility] Comment on above: Normal < 5.7 % Predi abetic 5.7 - 6.4 % Diabetic >or= 6.5 % Please note range changes. Basophil percentageOrdered B y: Shania Disla on 12-25-2023 Chloride [Moles/Vol] 102 mmol/L 98-107 [facility] Glucose [Mass/Vol] 476 mg/dL 74-106 [facility] Comment on above: Critical Result(s) C alled at: 09:52:20 12/25/2023 by: Santana Gaytan to Gabriela KOENIG (ER). Results read back by same.Glucose result greater than or equal to 200 mg/dLsuggests DIABETES MELLITUS per A.D.A. criteria. Potassium [Moles/Vol] 3.8 mmol/L 3.5-5.1 [facility] Sodium [Moles/Vol] 134 mmol/L 136-145 [facility] Laboratory - Chemistry and C hemistry - challengeOrdered By: Shania Disla on 12-25-2023 CO2 [Moles/Vol] 28.0 mmol/L 21.0-32.0 [facility] Urea nitrogen/Creatinine [Mass ratio] 16.5 mg/mg 10-20 [facility] No Panel InformationOrdered By: Shania Disla on 12-25-2023 Estimated Creatinine Clearance Calc 82.86 ml/min [facility] Estimated GFR (MDRD) Amer 82 mL/min >60 [facility] Comment on above: GFR Calc Estimated GFR (MDRD) Non-Af Amer 68 mL/min >60 [facility] Comment on above: Non- GFR Calc Serum or plasma calcium yayo urement (mass/volume)Ordered By: Shania Disla on 12-25-2023 Calcium [Mass/Vol] 9.3 mg/dL 8.5-10.1 [facility] Serum or plasma creatinine m easurement (mass/volume)Ordered By: Shania Disla on 12-25-2023 Creatinine [Mass/Vol] 1.15 mg/dL 0.70-1.30 [facility] Comment on above: The validity of the calculated GFR & GFRAA in patients over 70 years has not been determined. Clinical correlation is essential. Serum or plasma urea nitroge n measurement (mass/volume)Ordered By: Shania Disla on 12-25-2023 Urea nitrogen [Mass/Vol] 19 mg/dL 7-18 [facility] Thin prep Papanicolaou smear with manual screeningOrdered By: Shania Disla on 12-25-2023 Thin prep Papanicolaou smear with manual screening 354 mg/dL 74-106 [facility] Comment on above: MANAGEMENT OF PATIEN T CARE PER NURSING PROTOCOL Thin prep Papanicolaou smear with manual screening 4 5-15 [facility] Absolute lymphocyte countOrd ered By: Barry Ellisevan on 11-22-2023 Lymphocytes Auto (Unsp spec) [#/Vol] 1.40 10*3/uL 0.83-4.51 [facility] Automated lymphocyte count a s percentage of total leukocytesOrdered By: Barry Mathew on 11-22-2023 Lymphocytes/100 WBC Auto (Unsp spec) 18.9 % 19-41 [facility] Basophil percentageOrdered B y: Barry Mathew on 11-22-2023 Basophil percentage 0-5 SEEN /hpf 0-5 [facility] Basophils/100 WBC (Bld) 0.4 % 0-1 [facility] Bilirubin [Mass/Vol] 0.80 mg/dL 0.20-1.00 [facility] Comment on above: For patients on eltr ombopag therapy, use of Dimension [place] TBIL is not recommended. Chloride [Moles/Vol] 101 mmol/L 98-107 [facility] Eosinophils/100 WBC (Bld) 4.5 % 0-5 [facility] Glucose [Mass/Vol] 357 mg/dL 74-106 [facility] Comment on above: Glucose result great er than or equal to 200 mg/dLsuggests DIABETES MELLITUS per A.D.A. criteria. Hemoglobin (Bld) [Mass/Vol] 15.7 g/dL 13.0-16.5 [facility] Monocytes/100 WBC (Bld) 5.0 % 0-10 [facility] Neutrophils (Bld) [#/Vol] 5.3 10*3/uL 2.0-7.7 [facility] Neutrophils/100 WBC (Bld) 70.9 % 47-70 [facility] Potassium [Moles/Vol] 3.8 mmol/L 3.5-5.1 [facility] Protein [Mass/Vol] 7.6 g/dL 6.4-8.2 [facility] Sodium [Moles/Vol] 137 mmol/L 136-145 [facility] WBC (Bld) [#/Vol] 7.4 10*3/uL 4.4-11.0 [facility] Bilirubin Test strip Ql (U)O rdered By: Barry Mathew on 11-22-2023 Bilirubin Ql (U) Negative Negative [facility] Determination of erythrocyte mean corpuscular volume (MCV)Ordered By: Barry Mathew on 11-22-2023 MCV (RBC) [Entitic vol] 81.6 fL 80-94 [facility] Erythrocyte distribution wid th ratioOrdered By: Barry Mathew on 11-22-2023 Erythrocyte distribution width (RBC) [Ratio] 13.4 % 11.6-14.6 [facility] Erythrocyte distribution wid th standard deviationOrdered By: Barry Mathew on 11-22-2023 Erythrocyte distribution width (RBC) [Entitic vol] 39.2 fL 35.1-43.9 [facility] Hematocrit Auto (Bld) [Volum e fraction]Ordered By: Barry Mathew on 11-22-2023 Hematocrit (Bld) [Volume fraction] 45.6 % 40-54 [facility] Immature granulocytes/100 WB C Auto (Bld)Ordered By: Barry Mathew on 11-22-2023 Immature granulocytes/100 WBC (Bld) 0.300 % 0.0-0.9 [facility] Comment on above: IG% - Immature Granu locytes (promyelocytes, myelocytes and metamyelocytes) > 1% indicates that a LEFT SHIFT is Present. Ketones Test strip Ql (U)Ord ered By: Barry Mathew on 11-22-2023 Ketones Ql (U) Negative Negative [facility] Laboratory - Chemistry and C hemistry - challengeOrdered By: Barry Mathew on 11-22-2023 Albumin/Globulin [Mass ratio] 0.9 {ratio} 0.9-2.4 [facility] ALP [Catalytic activity/Vol] 100 U/L 45-117 [facility] ALT [Catalytic activity/Vol] 16 U/L 16-61 [facility] CO2 [Moles/Vol] 33.0 mmol/L 21.0-32.0 [facility] Globulin (S) [Mass/Vol] 3.9 g/dL 2.2-4.2 [facility] Urea nitrogen/Creatinine [Mass ratio] 13.9 mg/mg 10-20 [facility] Laboratory - Hematology and Cell countsOrdered By: Barry Mathew on 11-22-2023 MCH (RBC) [Entitic mass] 28.1 pg 27.0-32.0 [facility] MCHC (RBC) [Mass/Vol] 34.4 g/dL 32-36 [facility] Nucleated RBC/100 WBC (Bld) [Ratio] 0 % 0-5 [facility] Platelets (Bld) [#/Vol] 220 10*3/uL 150-450 [facility] Mucus LM Ql (Urine sed)Order ed By: Barry Mathew on 11-22-2023 Mucus Ql (Urine sed) RARE /hpf [facility] Nitrite Test strip Ql (U)Ord ered By: Barry Mathew on 11-22-2023 Nitrite Ql (U) Negative Negative [facility] No Panel InformationOrdered By: Barry Mathew on 11-22-2023 Urine RBC 0 SEEN /hpf 0-5 [facility] Estimated Creatinine Clearance Calc 101.37 ml/min [facility] Estimated GFR (MDRD) Amer 105 mL/min >60 [facility] Comment on above: GFR Calc Estimated GFR (MDRD) Non-Af Amer 86 mL/min >60 [facility] Comment on above: Non- GFR Calc Troponin I High Sensitivity 5 pg/mL 3.0-78.0 [facility] Comment on above: Please Note: New Kira t Units and Gender Specific Reference Ranges. For more information see Policy Stat Procedure [place] High Sensitivity Troponin (TNIH) and attachments. Platelet mean volume Kamlesh-Ec ker (Bld) [Entitic vol]Ordered By: Barry Mathew on 11-22-2023 Platelet mean volume (Bld) [Entitic vol] 9.3 fL 6.2-12.0 [facility] Protein Test strip Ql (U)Ord ered By: Barry Mathew on 11-22-2023 Protein Ql (U) 15 mg/dl Negative [facility] RBC Auto (Bld) [#/Vol]Ordere d By: Barry Mathew on 11-22-2023 RBC (Bld) [#/Vol] 5.59 10*6/uL 4.6-6.2 [facility] Serum or plasma calcium yayo urement (mass/volume)Ordered By: Barry Mathew on 11-22-2023 Calcium [Mass/Vol] 10.2 mg/dL 8.5-10.1 [facility] Serum or plasma creatinine m easurement (mass/volume)Ordered By: Barry Mathew on 11-22-2023 Creatinine [Mass/Vol] 0.94 mg/dL 0.70-1.30 [facility] Comment on above: The validity of the calculated GFR & GFRAA in patients over 70 years has not been determined. Clinical correlation is essential. Serum or plasma urea nitroge n measurement (mass/volume)Ordered By: Barry Mathew on 11-22-2023 Urea nitrogen [Mass/Vol] 13 mg/dL 7-18 [facility] Squamous epithelial cells de tection in urine sediment by light microscopyOrdered By: Barry Mathew on 11-22-2023 Epithelial cells.squamous LM Ql (Urine sed) 0-5 SEEN /hpf 0-5 [facility] Thin prep Papanicolaou smear with manual screeningOrdered By: Barry Mathew on 11-22-2023 Thin prep Papanicolaou smear with manual screening 3.7 g/dL 3.2-5.0 [facility] Thin prep Papanicolaou smear with manual screening 9 U/L 15-37 [facility] Thin prep Papanicolaou smear with manual screening 3 5-15 [facility] Urine blood detectionOrdered By: Barry Mathew on 11-22-2023 RBC Ql (U) Negative Negative [facility] Urine clarityOrdered By: Silva Mathew on 11-22-2023 Clarity (U) Sl. Cloudy Clear [facility] Urine color determinationOrd ered By: Barry Mathew on 11-22-2023 Color (U) Yellow Yellow [facility] Urine glucose detectionOrder ed By: Barry Mathew on 11-22-2023 Glucose Ql (U) 1000 mg/dl Normal [facility] Urine leukocyte esterase det ection by dipstickOrdered By: Barry Mathew on 01-23-2024 Leukocyte esterase Test strip Ql (U) 25 /ul Negative [facility] Urine pHOrdered By: Barry otoole on 11-22-2023 pH (U) 5.0 [pH] 5.0 - 8.0 [facility] Urine sediment bacteria coun t by microscopy (number/high power field)Ordered By: Barry Mathew on 11-22-2023 Bacteria LM.HPF (Urine sed) [#/Area] RARE /hpf None Seen [facility] Urine sediment yeast count b y microscopy (number/high powered field)Ordered By: Barry Mathew on 11-22-2023 Yeast LM.HPF (Urine sed) [#/Area] RARE /hpf None Seen [facility] Urine specific gravity measu rementOrdered By: Barry Mathew on 11-22-2023 Specific gravity (U) [Rel density] 1.020 1.002-1.030 [facility] Urine urobilinogen measureme ntOrdered By: Barry Mathew on 11-22-2023 Urobilinogen Ql (U) 1 mg/dl Normal [facility] Absolute lymphocyte countOrd ered By: Live Ashley on 10-01-2023 Lymphocytes Auto (Unsp spec) [#/Vol] 1.41 10*3/uL 0.83-4.51 [facility] Basophil percentageOrdered B y: Live Ashley on 10-01-2023 Basophils/100 WBC (Bld) 0.3 % 0-1 [facility] Chloride [Moles/Vol] 105 mmol/L 98-107 [facility] Eosinophils/100 WBC (Bld) 2.2 % 0-5 [facility] Glucose [Mass/Vol] 429 mg/dL 74-106 [facility] Comment on above: Glucose result great er than or equal to 200 mg/dLsuggests DIABETES MELLITUS per A.D.A. criteria. Neutrophils (Bld) [#/Vol] 6.4 10*3/uL 2.0-7.7 [facility] Neutrophils/100 WBC (Bld) 74.6 % 47-70 [facility] Potassium [Moles/Vol] 4.0 mmol/L 3.5-5.1 [facility] Sodium [Moles/Vol] 137 mmol/L 136-145 [facility] WBC (Bld) [#/Vol] 8.6 10*3/uL 4.4-11.0 [facility] Blood erythrocytes count (nu mber/volume)Ordered By: Live Ashley on 10-01-2023 RBC (Bld) [#/Vol] 4.67 10*6/uL 4.6-6.2 [facility] Blood hemoglobin measurement (mass/volume)Ordered By: Live Ashley on 10-01-2023 Hemoglobin (Bld) [Mass/Vol] 13.4 g/dL 13.0-16.5 [facility] Blood lymphocytes/100 leukoc ytesOrdered By: Live Ashley on 10-01-2023 Lymphocytes/100 WBC (Bld) 16.4 % 19-41 [facility] Blood monocytes/100 leukocyt esOrdered By: Live Ashley on 10-01-2023 Monocytes/100 WBC (Bld) 6.3 % 0-10 [facility] Blood platelet mean volumeOr dered By: Live Ashley on 10-01-2023 Platelet mean volume (Bld) [Entitic vol] 9.4 fL 6.2-12.0 [facility] Determination of erythrocyte mean corpuscular volume (MCV)Ordered By: Live Ashley on 10-01-2023 MCV (RBC) [Entitic vol] 84.4 fL 80-94 [facility] Hematocrit Auto (Bld) [Volum e fraction]Ordered By: Live Ashley on 10-01-2023 Hematocrit (Bld) [Volume fraction] 39.4 % 40-54 [facility] Laboratory - Chemistry and C hemistry - challengeOrdered By: Live Ashley on 10-01-2023 CO2 [Moles/Vol] 28.0 mmol/L 21.0-32.0 [facility] Urea nitrogen/Creatinine [Mass ratio] 14.9 mg/mg 10-20 [facility] Laboratory - Hematology and Cell countsOrdered By: Live Ashley on 10-01-2023 Erythrocyte distribution width (RBC) [Entitic vol] 41.7 fL 35.1-43.9 [facility] Erythrocyte distribution width (RBC) [Ratio] 13.7 % 11.6-14.6 [facility] Immature granulocytes/100 WBC (Bld) 0.200 % 0.0-0.9 [facility] Comment on above: IG% - Immature Granu locytes (promyelocytes, myelocytes and metamyelocytes) > 1% indicates that a LEFT SHIFT is Present. MCH (RBC) [Entitic mass] 28.7 pg 27.0-32.0 [facility] Nucleated RBC/100 WBC (Bld) [Ratio] 0 % 0-5 [facility] MCHC Auto (RBC) [Mass/Vol]Or dered By: Live Ashley on 10-01-2023 MCHC (RBC) [Mass/Vol] 34.0 g/dL 32-36 [facility] No Panel InformationOrdered By: Live Ashley on 10-01-2023 Estimated Creatinine Clearance Calc 83.59 ml/min [facility] Estimated GFR (MDRD) Amer 83 mL/min >60 [facility] Comment on above: GFR Calc Estimated GFR (MDRD) Non-Af Amer 69 mL/min >60 [facility] Comment on above: Non- GFR Calc Platelets bldOrdered By: Pankaj Ashley on 10-01-2023 Platelets (Bld) [#/Vol] 211 10*3/uL 150-450 [facility] Serum or plasma calcium yayo urement (mass/volume)Ordered By: Live Ashley on 10-01-2023 Calcium [Mass/Vol] 8.8 mg/dL 8.5-10.1 [facility] Serum or plasma creatinine m easurement (mass/volume)Ordered By: Live Ashley on 10-01-2023 Creatinine [Mass/Vol] 1.14 mg/dL 0.70-1.30 [facility] Comment on above: The validity of the calculated GFR & GFRAA in patients over 70 years has not been determined. Clinical correlation is essential. Serum or plasma urea nitroge n measurement (mass/volume)Ordered By: Live Ashley on 10-01-2023 Urea nitrogen [Mass/Vol] 17 mg/dL 7-18 [facility] Stool gastrointestinal hemog lobin detection by immunologic methodOrdered By: Live Ashley on 10-01-2023 Lower GI hemoglobin IA Ql (Stl) [facility] Lower GI hemoglobin IA Ql (Stl) [facility] Thin prep Papanicolaou smear with manual screeningOrdered By: Live Ashley on 10-01-2023 Thin prep Papanicolaou smear with manual screening 4 5-15 [facility] Absolute lymphocyte countOrd ered By: Barry Mathew on 09-29-2023 Lymphocytes Auto (Unsp spec) [#/Vol] 1.47 10*3/uL 0.83-4.51 [facility] Basophil percentageOrdered B y: Barry Mathew on 09-29-2023 Basophils/100 WBC (Bld) 0.6 % 0-1 [facility] Bilirubin [Mass/Vol] 0.40 mg/dL 0.20-1.00 [facility] Comment on above: For patients on eltr ombopag therapy, use of Dimension [place] TBIL is not recommended. Chloride [Moles/Vol] 105 mmol/L 98-107 [facility] Eosinophils/100 WBC (Bld) 1.7 % 0-5 [facility] Glucose [Mass/Vol] 213 mg/dL 74-106 [facility] Comment on above: Glucose result great er than or equal to 200 mg/dLsuggests DIABETES MELLITUS per A.D.A. criteria. Neutrophils (Bld) [#/Vol] 8.5 10*3/uL 2.0-7.7 [facility] Neutrophils/100 WBC (Bld) 78.5 % 47-70 [facility] Potassium [Moles/Vol] 3.9 mmol/L 3.5-5.1 [facility] Protein [Mass/Vol] 7.2 g/dL 6.4-8.2 [facility] Sodium [Moles/Vol] 137 mmol/L 136-145 [facility] WBC (Bld) [#/Vol] 10.9 10*3/uL 4.4-11.0 [facility] Blood erythrocytes count (nu mber/volume)Ordered By: Barry Mathew on 09-29-2023 RBC (Bld) [#/Vol] 4.98 10*6/uL 4.6-6.2 [facility] Blood hemoglobin measurement (mass/volume)Ordered By: Barry Mathew on 09-29-2023 Hemoglobin (Bld) [Mass/Vol] 14.0 g/dL 13.0-16.5 [facility] Blood lymphocytes/100 leukoc ytesOrdered By: Barry Mathew on 09-29-2023 Lymphocytes/100 WBC (Bld) 13.5 % 19-41 [facility] Blood monocytes/100 leukocyt esOrdered By: Barry Mathew on 09-29-2023 Monocytes/100 WBC (Bld) 5.2 % 0-10 [facility] Blood platelet mean volumeOr dered By: Barry Mathew on 09-29-2023 Platelet mean volume (Bld) [Entitic vol] 9.2 fL 6.2-12.0 [facility] Determination of erythrocyte mean corpuscular volume (MCV)Ordered By: Barry Mathew on 09-29-2023 MCV (RBC) [Entitic vol] 82.5 fL 80-94 [facility] Hematocrit Auto (Bld) [Volum e fraction]Ordered By: Barry Mathew on 09-29-2023 Hematocrit (Bld) [Volume fraction] 41.1 % 40-54 [facility] Laboratory - Chemistry and C hemistry - challengeOrdered By: Barry Mathew on 09-29-2023 ALP [Catalytic activity/Vol] 100 U/L 45-117 [facility] ALT [Catalytic activity/Vol] 14 U/L 16-61 [facility] CO2 [Moles/Vol] 28.0 mmol/L 21.0-32.0 [facility] Globulin (S) [Mass/Vol] 3.7 g/dL 2.2-4.2 [facility] Lipase [Catalytic activity/Vol] 13 U/L 13-75 [facility] Comment on above: Please note:LIPASE r evised reference range effective 23. New Lipase methodology. Expected to produce lower values than the previous assay method. NEW Reference Range: 13 - 75 U/L Urea nitrogen/Creatinine [Mass ratio] 16.5 mg/mg 10-20 [facility] Laboratory - Hematology and Cell countsOrdered By: Barry Mathew on 09-29-2023 Erythrocyte distribution width (RBC) [Entitic vol] 39.8 fL 35.1-43.9 [facility] Erythrocyte distribution width (RBC) [Ratio] 13.4 % 11.6-14.6 [facility] Immature granulocytes/100 WBC (Bld) 0.500 % 0.0-0.9 [facility] Comment on above: IG% - Immature Granu locytes (promyelocytes, myelocytes and metamyelocytes) > 1% indicates that a LEFT SHIFT is Present. MCH (RBC) [Entitic mass] 28.1 pg 27.0-32.0 [facility] Nucleated RBC/100 WBC (Bld) [Ratio] 0 % 0-5 [facility] MCHC Auto (RBC) [Mass/Vol]Or dered By: Barry Mathew on 09-29-2023 MCHC (RBC) [Mass/Vol] 34.1 g/dL 32-36 [facility] No Panel InformationOrdered By: Barry Mathew on 09-29-2023 Estimated Creatinine Clearance Calc 92.51 ml/min [facility] Estimated GFR (MDRD) Amer 94 mL/min >60 [facility] Comment on above: GFR Calc Estimated GFR (MDRD) Non-Af Amer 77 mL/min >60 [facility] Comment on above: Non- GFR Calc Platelets bldOrdered By: Silva Mathew on 09-29-2023 Platelets (Bld) [#/Vol] 226 10*3/uL 150-450 [facility] Serum or plasma albumin yayo urement (mass/volume)Ordered By: Barry Mathew on 09-29-2023 Albumin [Mass/Vol] 3.5 g/dL 3.2-5.0 [facility] Serum or plasma albumin/glob ulin mass ratioOrdered By: Barry Mathew on 09-29-2023 Albumin/Globulin [Mass ratio] 0.9 {ratio} 0.9-2.4 [facility] Serum or plasma calcium yayo urement (mass/volume)Ordered By: Barry Mathew on 09-29-2023 Calcium [Mass/Vol] 8.7 mg/dL 8.5-10.1 [facility] Serum or plasma creatinine m easurement (mass/volume)Ordered By: Barry Mathew on 09-29-2023 Creatinine [Mass/Vol] 1.03 mg/dL 0.70-1.30 [facility] Comment on above: The validity of the calculated GFR & GFRAA in patients over 70 years has not been determined. Clinical correlation is essential. Serum or plasma urea nitroge n measurement (mass/volume)Ordered By: Barry Mathew on 09-29-2023 Urea nitrogen [Mass/Vol] 17 mg/dL 7-18 [facility] Thin prep Papanicolaou smear with manual screeningOrdered By: Barry Mathew on 09-29-2023 Thin prep Papanicolaou smear with manual screening 9 U/L 15-37 [facility] Thin prep Papanicolaou smear with manual screening 4 5-15 [facility] Absolute lymphocyte countOrd ered By: Arlupe Calle on 07-29-2023 Lymphocytes Auto (Unsp spec) [#/Vol] 1.27 10*3/uL 0.83-4.51 [facility] Basophil percentageOrdered B y: Ar Calle on 07-29-2023 Basophils/100 WBC (Bld) 0.7 % 0-1 [facility] Chloride [Moles/Vol] 100 mmol/L 98-107 [facility] Eosinophils/100 WBC (Bld) 2.4 % 0-5 [facility] Glucose [Mass/Vol] 408 mg/dL 74-106 [facility] Comment on above: Glucose result great er than or equal to 200 mg/dLsuggests DIABETES MELLITUS per A.D.A. criteria. Neutrophils (Bld) [#/Vol] 6.2 10*3/uL 2.0-7.7 [facility] Neutrophils/100 WBC (Bld) 74.4 % 47-70 [facility] Potassium [Moles/Vol] 4.0 mmol/L 3.5-5.1 [facility] Sodium [Moles/Vol] 135 mmol/L 136-145 [facility] WBC (Bld) [#/Vol] 8.3 10*3/uL 4.4-11.0 [facility] Blood erythrocytes count (nu mber/volume)Ordered By: Ar Calle on 07-29-2023 RBC (Bld) [#/Vol] 4.62 10*6/uL 4.6-6.2 [facility] Blood hemoglobin measurement (mass/volume)Ordered By: Ar Calle on 07-29-2023 Hemoglobin (Bld) [Mass/Vol] 12.9 g/dL 13.0-16.5 [facility] Blood lymphocytes/100 leukoc ytesOrdered By: Ar Calle on 07-29-2023 Lymphocytes/100 WBC (Bld) 15.2 % 19-41 [facility] Blood monocytes/100 leukocyt esOrdered By: Ar Calle on 07-29-2023 Monocytes/100 WBC (Bld) 6.7 % 0-10 [facility] Blood platelet mean volumeOr dered By: Ar Calle on 07-29-2023 Platelet mean volume (Bld) [Entitic vol] 9.5 fL 6.2-12.0 [facility] Determination of erythrocyte mean corpuscular volume (MCV)Ordered By: Ar Calle on 07-29-2023 MCV (RBC) [Entitic vol] 81.8 fL 80-94 [facility] Glucose Glucometer (dC) [M ass/Vol]Ordered By: Ar Calle on 07-29-2023 Glucose [Mass/Vol] 400 mg/dL 74-106 [facility] Comment on above: MANAGEMENT OF PATIEN T CARE PER NURSING PROTOCOL Hematocrit Auto (Bld) [Volum e fraction]Ordered By: Ar Calle on 07-29-2023 Hematocrit (Bld) [Volume fraction] 37.8 % 40-54 [facility] Laboratory - Chemistry and C hemistry - challengeOrdered By: Ar Calle on 07-29-2023 CO2 [Moles/Vol] 30.0 mmol/L 21.0-32.0 [facility] Urea nitrogen/Creatinine [Mass ratio] 11.1 mg/mg 10-20 [facility] Laboratory - Hematology and Cell countsOrdered By: Arlupe Calle on 07-29-2023 Erythrocyte distribution width (RBC) [Entitic vol] 39.1 fL 35.1-43.9 [facility] Erythrocyte distribution width (RBC) [Ratio] 13.3 % 11.6-14.6 [facility] Immature granulocytes/100 WBC (Bld) 0.600 % 0.0-0.9 [facility] Comment on above: IG% - Immature Granu locytes (promyelocytes, myelocytes and metamyelocytes) > 1% indicates that a LEFT SHIFT is Present. MCH (RBC) [Entitic mass] 27.9 pg 27.0-32.0 [facility] Nucleated RBC/100 WBC (Bld) [Ratio] 0 % 0-5 [facility] MCHC Auto (RBC) [Mass/Vol]Or dered By: Ar Calle on 07-29-2023 MCHC (RBC) [Mass/Vol] 34.1 g/dL 32-36 [facility] No Panel InformationOrdered By: Ar Calle on 07-29-2023 Estimated Creatinine Clearance Calc 75.63 ml/min [facility] Estimated GFR (MDRD) Amer 74 mL/min >60 [facility] Comment on above: GFR Calc Estimated GFR (MDRD) Non-Af Amer 61 mL/min >60 [facility] Comment on above: Non- GFR Calc Troponin I High Sensitivity 4 pg/mL 3.0-78.0 [facility] Comment on above: Please Note: New Kira t Units and Gender Specific Reference Ranges. For more information see Policy Stat Procedure [place] High Sensitivity Troponin (TNIH) and attachments. Platelets bldOrdered By: Arlupe Calle on 07-29-2023 Platelets (Bld) [#/Vol] 208 10*3/uL 150-450 [facility] Serum or plasma calcium yayo urement (mass/volume)Ordered By: Ar Calle on 07-29-2023 Calcium [Mass/Vol] 8.5 mg/dL 8.5-10.1 [facility] Serum or plasma creatinine m easurement (mass/volume)Ordered By: Ar Calle on 07-29-2023 Creatinine [Mass/Vol] 1.26 mg/dL 0.70-1.30 [facility] Comment on above: The validity of the calculated GFR & GFRAA in patients over 70 years has not been determined. Clinical correlation is essential. Serum or plasma urea nitroge n measurement (mass/volume)Ordered By: Ar Calle on 07-29-2023 Urea nitrogen [Mass/Vol] 14 mg/dL 7-18 [facility] Thin prep Papanicolaou smear with manual screeningOrdered By: Ar Calle on 07-29-2023 Thin prep Papanicolaou smear with manual screening 5 5-15 [facility] Absolute lymphocyte countOrd ered By: Dr. Castillo on 03-07-2023 Lymphocytes Auto (Unsp spec) [#/Vol] 1.61 10*3/uL 0.83-4.51 [facility] Basophil percentageOrdered B y: Dr. Castillo on 03-07-2023 Basophils/100 WBC (Bld) 0.5 % 0-1 [facility] Bilirubin [Mass/Vol] 0.60 mg/dL 0.20-1.00 [facility] Comment on above: For patients on eltr ombopag therapy, use of Dimension [place] TBIL is not recommended. Chloride [Moles/Vol] 104 mmol/L 98-107 [facility] Eosinophils/100 WBC (Bld) 3.1 % 0-5 [facility] Glucose [Mass/Vol] 347 mg/dL 74-106 [facility] Comment on above: Glucose result great er than or equal to 200 mg/dLsuggests DIABETES MELLITUS per A.D.A. criteria. Neutrophils (Bld) [#/Vol] 5.0 10*3/uL 2.0-7.7 [facility] Neutrophils/100 WBC (Bld) 67.8 % 47-70 [facility] Potassium [Moles/Vol] 3.8 mmol/L 3.5-5.1 [facility] Protein [Mass/Vol] 7.3 g/dL 6.4-8.2 [facility] Sodium [Moles/Vol] 139 mmol/L 136-145 [facility] WBC (Bld) [#/Vol] 7.4 10*3/uL 4.4-11.0 [facility] Blood erythrocytes count (nu mber/volume)Ordered By: Dr. Castillo on 03-07-2023 RBC (Bld) [#/Vol] 5.02 10*6/uL 4.6-6.2 [facility] Blood hemoglobin measurement (mass/volume)Ordered By: Dr. Castillo on 03-07-2023 Hemoglobin (Bld) [Mass/Vol] 14.3 g/dL 13.0-16.5 [facility] Blood lymphocytes/100 leukoc ytesOrdered By: Dr. Castillo on 03-07-2023 Lymphocytes/100 WBC (Bld) 21.8 % 19-41 [facility] Blood monocytes/100 leukocyt esOrdered By: Dr. Castillo on 03-07-2023 Monocytes/100 WBC (Bld) 6.4 % 0-10 [facility] Blood platelet mean volumeOr dered By: Dr. Castillo on 03-07-2023 Platelet mean volume (Bld) [Entitic vol] 9.5 fL 6.2-12.0 [facility] Determination of erythrocyte mean corpuscular volume (MCV)Ordered By: Dr. Castillo on 03-07-2023 MCV (RBC) [Entitic vol] 83.3 fL 80-94 [facility] Direct bilirubinOrdered By: Dr. Castillo on 03-07-2023 Bilirubin.direct [Mass/Vol] 0.12 mg/dL 0.00-0.30 [facility] Glucose Glucometer (dC) [M ass/Vol]Ordered By: Dr. Castillo on 03-07-2023 Glucose [Mass/Vol] 134 mg/dL 74-106 [facility] Comment on above: MANAGEMENT OF PATIEN T CARE PER NURSING PROTOCOL Hematocrit Auto (Bld) [Volum e fraction]Ordered By: Dr. Castillo on 03-07-2023 Hematocrit (Bld) [Volume fraction] 41.8 % 40-54 [facility] Laboratory - Chemistry and C hemistry - challengeOrdered By: Dr. Castillo on 03-07-2023 ALP [Catalytic activity/Vol] 67 U/L 45-117 [facility] ALT [Catalytic activity/Vol] 16 U/L 16-61 [facility] CO2 [Moles/Vol] 27.0 mmol/L 21.0-32.0 [facility] Globulin (S) [Mass/Vol] 3.8 g/dL 2.2-4.2 [facility] Lipase [Catalytic activity/Vol] 12 U/L 13-75 [facility] Comment on above: Please note:LIPASE r evised reference range effective 23. New Lipase methodology. Expected to produce lower values than the previous assay method. NEW Reference Range: 13 - 75 U/L Urea nitrogen/Creatinine [Mass ratio] 12.5 mg/mg 10-20 [facility] Laboratory - Hematology and Cell countsOrdered By: Dr. Castillo on 03-07-2023 Erythrocyte distribution width (RBC) [Entitic vol] 40.3 fL 35.1-43.9 [facility] Erythrocyte distribution width (RBC) [Ratio] 13.3 % 11.6-14.6 [facility] Immature granulocytes/100 WBC (Bld) 0.400 % 0.0-0.9 [facility] Comment on above: IG% - Immature Granu locytes (promyelocytes, myelocytes and metamyelocytes) > 1% indicates that a LEFT SHIFT is Present. MCH (RBC) [Entitic mass] 28.5 pg 27.0-32.0 [facility] Nucleated RBC/100 WBC (Bld) [Ratio] 0 % 0-5 [facility] MCHC Auto (RBC) [Mass/Vol]Or dered By: Dr. Castillo on 03-07-2023 MCHC (RBC) [Mass/Vol] 34.2 g/dL 32-36 [facility] No Panel InformationOrdered By: Dr. Castillo on 03-07-2023 Estimated Creatinine Clearance Calc 85.63 ml/min [facility] Estimated GFR (MDRD) Amer 93 mL/min >60 [facility] Comment on above: GFR Calc Estimated GFR (MDRD) Non-Af Amer 77 mL/min >60 [facility] Comment on above: Non- GFR Calc Ethyl Alcohol Level < 3.0 mg/dL [facility] Comment on above: The serum:whole bloo d ethanol ratio is approximately 1.14and varies slightly with hematocrit. Medical Alcohol reference interval and critical value innon-tolerant individuals; 50 - 100 Impairment 100 Intoxication 100 - 250 Severe Poisoning 250 - 400 Deep/possible fatal coma Platelets bldOrdered By: Dr. Castillo on 03-07-2023 Platelets (Bld) [#/Vol] 214 10*3/uL 150-450 [facility] Serum or plasma albumin yayo urement (mass/volume)Ordered By: Dr. Castillo on 03-07-2023 Albumin [Mass/Vol] 3.5 g/dL 3.2-5.0 [facility] Serum or plasma calcium yayo urement (mass/volume)Ordered By: Dr. Castillo on 03-07-2023 Calcium [Mass/Vol] 8.7 mg/dL 8.5-10.1 [facility] Serum or plasma creatinine m easurement (mass/volume)Ordered By: Dr. Castillo on 03-07-2023 Creatinine [Mass/Vol] 1.04 mg/dL 0.70-1.30 [facility] Comment on above: The validity of the calculated GFR & GFRAA in patients over 70 years has not been determined. Clinical correlation is essential. Serum or plasma urea nitroge n measurement (mass/volume)Ordered By: Dr. Castillo on 03-07-2023 Urea nitrogen [Mass/Vol] 13 mg/dL 7-18 [facility] Thin prep Papanicolaou smear with manual screeningOrdered By: Dr. Castillo on 03-07-2023 Thin prep Papanicolaou smear with manual screening 13 U/L 15-37 [facility] Thin prep Papanicolaou smear with manual screening 8 5-15 [facility] Absolute lymphocyte countOrd ered By: Dr. Chavez on 01-18-2023 Lymphocytes Auto (Unsp spec) [#/Vol] 1.51 10*3/uL 0.83-4.51 [facility] Basophil percentageOrdered B y: Dr. Chavez on 01-18-2023 Basophils/100 WBC (Bld) 0.5 % 0-1 [facility] Bilirubin [Mass/Vol] 0.90 mg/dL 0.20-1.00 [facility] Comment on above: For patients on eltr ombopag therapy, use of Dimension [place] TBIL is not recommended. Chloride [Moles/Vol] 105 mmol/L 98-107 [facility] Eosinophils/100 WBC (Bld) 2.6 % 0-5 [facility] Glucose [Mass/Vol] 182 mg/dL 74-106 [facility] Comment on above: Fasting Glucose resu lt greater than or equal to 126 mg/dL suggests DIABETES MELLITUS per A.D.A. criteria. Neutrophils (Bld) [#/Vol] 6.0 10*3/uL 2.0-7.7 [facility] Neutrophils/100 WBC (Bld) 71.9 % 47-70 [facility] Potassium [Moles/Vol] 3.4 mmol/L 3.5-5.1 [facility] Protein [Mass/Vol] 6.9 g/dL 6.4-8.2 [facility] Sodium [Moles/Vol] 139 mmol/L 136-145 [facility] WBC (Bld) [#/Vol] 8.4 10*3/uL 4.4-11.0 [facility] Blood erythrocytes count (nu mber/volume)Ordered By: Dr. Chavez on 01-18-2023 RBC (Bld) [#/Vol] 5.01 10*6/uL 4.6-6.2 [facility] Blood hemoglobin measurement (mass/volume)Ordered By: Dr. Chavez on 01-18-2023 Hemoglobin (Bld) [Mass/Vol] 14.4 g/dL 13.0-16.5 [facility] Blood lymphocytes/100 leukoc ytesOrdered By: Dr. Chavez on 01-18-2023 Lymphocytes/100 WBC (Bld) 18.0 % 19-41 [facility] Blood monocytes/100 leukocyt esOrdered By: Dr. Chavez on 01-18-2023 Monocytes/100 WBC (Bld) 6.8 % 0-10 [facility] Blood platelet mean volumeOr dered By: Dr. Chavez on 01-18-2023 Platelet mean volume (Bld) [Entitic vol] 8.9 fL 6.2-12.0 [facility] Clostridium difficile detect ion by polymerase chain reactionOrdered By: Bernard Chavez on 01-18-2023 C. difficile DNA IOANA+probe Ql (Unsp spec) [facility] Clostridium difficile detect ion by polymerase chain reactionOrdered By: Dr. Chavez on 01-18-2023 C. difficile DNA IOANA+probe Ql (Unsp spec) [facility] Determination of erythrocyte mean corpuscular volume (MCV)Ordered By: Dr. Chavez on 01-18-2023 MCV (RBC) [Entitic vol] 81.6 fL 80-94 [facility] Hematocrit Auto (Bld) [Volum e fraction]Ordered By: Dr. Chavez on 01-18-2023 Hematocrit (Bld) [Volume fraction] 40.9 % 40-54 [facility] Laboratory - Chemistry and C hemistry - challengeOrdered By: Dr. Chavez on 01-18-2023 ALP [Catalytic activity/Vol] 64 U/L 45-117 [facility] ALT [Catalytic activity/Vol] 14 U/L 16-61 [facility] CO2 [Moles/Vol] 28.0 mmol/L 21.0-32.0 [facility] Globulin (S) [Mass/Vol] 3.2 g/dL 2.2-4.2 [facility] Urea nitrogen/Creatinine [Mass ratio] 11.7 mg/mg 10-20 [facility] Laboratory - Hematology and Cell countsOrdered By: Dr. Chavez on 01-18-2023 Erythrocyte distribution width (RBC) [Entitic vol] 39.6 fL 35.1-43.9 [facility] Erythrocyte distribution width (RBC) [Ratio] 13.4 % 11.6-14.6 [facility] Immature granulocytes/100 WBC (Bld) 0.200 % 0.0-0.9 [facility] Comment on above: IG% - Immature Granu locytes (promyelocytes, myelocytes and metamyelocytes) > 1% indicates that a LEFT SHIFT is Present. MCH (RBC) [Entitic mass] 28.7 pg 27.0-32.0 [facility] Nucleated RBC/100 WBC (Bld) [Ratio] 0 % 0-5 [facility] MCHC Auto (RBC) [Mass/Vol]Or dered By: Dr. Chavez on 01-18-2023 MCHC (RBC) [Mass/Vol] 35.2 g/dL 32-36 [facility] No Panel InformationOrdered By: Dr. Chavez on 01-18-2023 Estimated Creatinine Clearance Calc 102.69 ml/min [facility] Estimated GFR (MDRD) Amer 105 mL/min >60 [facility] Comment on above: GFR Calc Estimated GFR (MDRD) Non-Af Amer 86 mL/min >60 [facility] Comment on above: Non- GFR Calc Platelets bldOrdered By: Dr. Chavez on 01-18-2023 Platelets (Bld) [#/Vol] 199 10*3/uL 150-450 [facility] Serum or plasma albumin yayo urement (mass/volume)Ordered By: Dr. Chavez on 01-18-2023 Albumin [Mass/Vol] 3.7 g/dL 3.2-5.0 [facility] Serum or plasma albumin/glob ulin mass ratioOrdered By: Dr. Chavez on 01-18-2023 Albumin/Globulin [Mass ratio] 1.2 {ratio} 0.9-2.4 [facility] Serum or plasma calcium yayo urement (mass/volume)Ordered By: Dr. Chavez on 01-18-2023 Calcium [Mass/Vol] 8.3 mg/dL 8.5-10.1 [facility] Serum or plasma creatinine m easurement (mass/volume)Ordered By: Dr. Chavez on 01-18-2023 Creatinine [Mass/Vol] 0.94 mg/dL 0.70-1.30 [facility] Comment on above: The validity of the calculated GFR & GFRAA in patients over 70 years has not been determined. Clinical correlation is essential. Serum or plasma urea nitroge n measurement (mass/volume)Ordered By: Dr. Chavez on 01-18-2023 Urea nitrogen [Mass/Vol] 11 mg/dL 7-18 [facility] Stool lactoferrin detection by immunoassayOrdered By: Bernard Chavez on 01-18-2023 Lactoferrin IA Ql (Stl) [facility] Stool lactoferrin detection by immunoassayOrdered By: Dr. Chavez on 01-18-2023 Lactoferrin IA Ql (Stl) [facility] Thin prep Papanicolaou smear with manual screeningOrdered By: Dr. Chavez on 01-18-2023 Thin prep Papanicolaou smear with manual screening 10 U/L 15-37 [facility] Thin prep Papanicolaou smear with manual screening 6 5-15 [facility] Laboratory - Chemistry and C hemistry - challengeOrdered By: Dr. Chavez on 12-15-2022 Free T4 [Mass/Vol] 0.76 ng/dL 0.76-1.46 [facility] No Panel InformationOrdered By: Dr. Chavez on 12-15-2022 Thyroid Stimulating Hormone (TSH) 9.17 uIU/mL 0.358-3.74 [facility] Absolute lymphocyte countOrd ered By: Dr. Wu on 12-11-2022 Lymphocytes Auto (Unsp spec) [#/Vol] 1.53 10*3/uL 0.83-4.51 [facility] Basophil percentageOrdered B y: Dr. Wu on 12-11-2022 Basophil percentage 0 SEEN /hpf 0-5 [facility] Basophils/100 WBC (Bld) 0.6 % 0-1 [facility] Bilirubin [Mass/Vol] 0.60 mg/dL 0.20-1.00 [facility] Comment on above: For patients on eltr ombopag therapy, use of Dimension [place] TBIL is not recommended. Chloride [Moles/Vol] 104 mmol/L 98-107 [facility] Eosinophils/100 WBC (Bld) 3.4 % 0-5 [facility] Glucose [Mass/Vol] 337 mg/dL 74-106 [facility] Comment on above: Glucose result great er than or equal to 200 mg/dLsuggests DIABETES MELLITUS per A.D.A. criteria. Neutrophils (Bld) [#/Vol] 4.6 10*3/uL 2.0-7.7 [facility] Neutrophils/100 WBC (Bld) 67.1 % 47-70 [facility] Potassium [Moles/Vol] 3.4 mmol/L 3.5-5.1 [facility] Protein [Mass/Vol] 6.7 g/dL 6.4-8.2 [facility] Sodium [Moles/Vol] 139 mmol/L 136-145 [facility] WBC (Bld) [#/Vol] 6.8 10*3/uL 4.4-11.0 [facility] Bilirubin Test strip Ql (U)O rdered By: Dr. Wu on 12-11-2022 Bilirubin Ql (U) Negative Negative [facility] Blood erythrocytes count (nu mber/volume)Ordered By: Dr. Wu on 12-11-2022 RBC (Bld) [#/Vol] 5.09 10*6/uL 4.6-6.2 [facility] Blood hemoglobin measurement (mass/volume)Ordered By: Dr. Wu on 12-11-2022 Hemoglobin (Bld) [Mass/Vol] 14.4 g/dL 13.0-16.5 [facility] Blood lymphocytes/100 leukoc ytesOrdered By: Dr. Wu on 12-11-2022 Lymphocytes/100 WBC (Bld) 22.4 % 19-41 [facility] Blood monocytes/100 leukocyt esOrdered By: Dr. Wu on 12-11-2022 Monocytes/100 WBC (Bld) 6.1 % 0-10 [facility] Blood platelet mean volumeOr dered By: Dr. Wu on 12-11-2022 Platelet mean volume (Bld) [Entitic vol] 9.5 fL 6.2-12.0 [facility] Determination of erythrocyte mean corpuscular volume (MCV)Ordered By: Dr. Wu on 12-11-2022 MCV (RBC) [Entitic vol] 82.3 fL 80-94 [facility] Glucose Glucometer (dC) [M ass/Vol]Ordered By: Dr. Wu on 12-11-2022 Glucose [Mass/Vol] 272 mg/dL 74-106 [facility] Comment on above: MANAGEMENT OF PATIEN T CARE PER NURSING PROTOCOL Hematocrit Auto (Bld) [Volum e fraction]Ordered By: Dr. Wu on 12-11-2022 Hematocrit (Bld) [Volume fraction] 41.9 % 40-54 [facility] Influenza virus A and B and SARS-CoV-2 (COVID-19) Ag panel - Upper respiratory specimOrdered By: Dr. Wu on 12-11-2022 SARS-CoV-2 (COVID-19) RNA IOANA+probe Ql (Resp) [facility] Ketones Test strip Ql (U)Ord ered By: Dr. Wu on 12-11-2022 Ketones Ql (U) 5 mg/dl Negative [facility] Laboratory - Chemistry and C hemistry - challengeOrdered By: Dr. Wu on 12-11-2022 ALP [Catalytic activity/Vol] 72 U/L 45-117 [facility] ALT [Catalytic activity/Vol] 12 U/L 16-61 [facility] CO2 [Moles/Vol] 28.0 mmol/L 21.0-32.0 [facility] Globulin (S) [Mass/Vol] 3.2 g/dL 2.2-4.2 [facility] Urea nitrogen/Creatinine [Mass ratio] 8.6 mg/mg 10-20 [facility] Laboratory - Drug toxicology Ordered By: Dr. Wu on 12-11-2022 Amphetamines Ql (U) Negative <1000 ng/mL [facility] Benzodiazepines Ql (U) Negative < 200 ng/mL [facility] Cannabinoids Screen Ql (U) Negative < 50 ng/mL [facility] Cocaine Ql (U) Negative < 300 ng/mL [facility] Opiates Ql (U) Negative < 300 ng/mL [facility] Laboratory - Hematology and Cell countsOrdered By: Dr. Wu on 12-11-2022 Erythrocyte distribution width (RBC) [Entitic vol] 38.8 fL 35.1-43.9 [facility] Erythrocyte distribution width (RBC) [Ratio] 13.2 % 11.6-14.6 [facility] Immature granulocytes/100 WBC (Bld) 0.400 % 0.0-0.9 [facility] Comment on above: IG% - Immature Granu locytes (promyelocytes, myelocytes and metamyelocytes) > 1% indicates that a LEFT SHIFT is Present. MCH (RBC) [Entitic mass] 28.3 pg 27.0-32.0 [facility] Nucleated RBC/100 WBC (Bld) [Ratio] 0 % 0-5 [facility] MCHC Auto (RBC) [Mass/Vol]Or dered By: Dr. Wu on 12-11-2022 MCHC (RBC) [Mass/Vol] 34.4 g/dL 32-36 [facility] Mucus LM Ql (Urine sed)Order ed By: Dr. Wu on 12-11-2022 Mucus Ql (Urine sed) RARE /hpf [facility] Nitrite Test strip Ql (U)Ord ered By: Dr. Wu on 12-11-2022 Nitrite Ql (U) Negative Negative [facility] No Panel InformationOrdered By: Dr. Wu on 12-11-2022 MDMA (Ecstasy) Screen Negative < 500 ng/mL [facility] Urine Barbiturates Screen Negative < 200 ng/mL [facility] Urine Drug Screen Comment [facility] Comment on above: CONFIRMATORY TESTING FOR ALL [...] Methadone Screen Negative < 300 ng/mL [facility] Estimated Creatinine Clearance Calc 103.79 ml/min [facility] Estimated GFR (MDRD) Amer 105 mL/min >60 [facility] Comment on above: GFR Calc Estimated GFR (MDRD) Non-Af Amer 87 mL/min >60 [facility] Comment on above: Non- GFR Calc Ethyl Alcohol Level < 3.0 mg/dL [facility] Comment on above: The serum:whole bloo d ethanol ratio is approximately 1.14and varies slightly with hematocrit. Medical Alcohol reference interval and critical value innon-tolerant individuals; 50 - 100 Impairment 100 Intoxication 100 - 250 Severe Poisoning 250 - 400 Deep/possible fatal coma Troponin I High Sensitivity 6 pg/mL 3.0-78.0 [facility] Comment on above: Please Note: New Kira t Units and Gender Specific Reference Ranges. For more information see Policy Stat Procedure [place] High Sensitivity Troponin (TNIH) and attachments. Platelets bldOrdered By: Dr. Wu on 12-11-2022 Platelets (Bld) [#/Vol] 202 10*3/uL 150-450 [facility] Protein Test strip Ql (U)Ord ered By: Dr. Wu on 12-11-2022 Protein Ql (U) 15 mg/dl Negative [facility] Serum or plasma albumin yayo urement (mass/volume)Ordered By: Dr. Wu on 12-11-2022 Albumin [Mass/Vol] 3.5 g/dL 3.2-5.0 [facility] Serum or plasma albumin/glob ulin mass ratioOrdered By: Dr. Wu on 12-11-2022 Albumin/Globulin [Mass ratio] 1.1 {ratio} 0.9-2.4 [facility] Serum or plasma calcium yayo urement (mass/volume)Ordered By: Dr. Wu on 12-11-2022 Calcium [Mass/Vol] 8.6 mg/dL 8.5-10.1 [facility] Serum or plasma creatinine m easurement (mass/volume)Ordered By: Dr. Wu on 12-11-2022 Creatinine [Mass/Vol] 0.93 mg/dL 0.70-1.30 [facility] Comment on above: The validity of the calculated GFR & GFRAA in patients over 70 years has not been determined. Clinical correlation is essential. Serum or plasma urea nitroge n measurement (mass/volume)Ordered By: Dr. Wu on 12-11-2022 Urea nitrogen [Mass/Vol] 8 mg/dL 7-18 [facility] Squamous epithelial cells de tection in urine sediment by light microscopyOrdered By: Dr. Wu on 12-11-2022 Epithelial cells.squamous LM Ql (Urine sed) 0 SEEN /hpf 0-5 [facility] Thin prep Papanicolaou smear with manual screeningOrdered By: Dr. Wu on 12-11-2022 Thin prep Papanicolaou smear with manual screening 5 U/L 15-37 [facility] Thin prep Papanicolaou smear with manual screening 7 5-15 [facility] Urine blood detectionOrdered By: Dr. Wu on 12-11-2022 RBC Ql (U) Negative Negative [facility] RBC Ql (U) 0 SEEN /hpf 0-5 [facility] Urine clarityOrdered By: Dr. Wu on 12-11-2022 Clarity (U) Clear Clear [facility] Urine color determinationOrd ered By: Dr. Wu on 12-11-2022 Color (U) Yellow Yellow [facility] Urine glucose detectionOrder ed By: Dr. Wu on 12-11-2022 Glucose Ql (U) 1000 mg/dl Normal [facility] Urine leukocyte esterase det ection by dipstickOrdered By: Dr. Wu on 12-11-2022 Leukocyte esterase Test strip Ql (U) Negative Negative [facility] Urine pHOrdered By: Dr. Humza ya on 12-11-2022 pH (U) 6.0 [pH] 5.0 - 8.0 [facility] Urine phencyclidine (PCP) de tectionOrdered By: Dr. Wu on 12-11-2022 Phencyclidine Ql (U) Negative < 25 ng/mL [facility] Urine sediment bacteria coun t by microscopy (number/high power field)Ordered By: Dr. Wu on 12-11-2022 Bacteria LM.HPF (Urine sed) [#/Area] 0 /[HPF] None Seen [facility] Urine specific gravity measu rementOrdered By: Dr. Wu on 12-11-2022 Specific gravity (U) [Rel density] 1.015 1.002-1.030 [facility] Urobilinogen Auto test strip Ql (U)Ordered By: Dr. Wu on 12-11-2022 Urobilinogen Ql (U) Normal mg/dl Normal [facility] Absolute lymphocyte countOrd ered By: Dr. Castillo on 12-10-2022 Lymphocytes Auto (Unsp spec) [#/Vol] 1.79 10*3/uL 0.83-4.51 [facility] Basophil percentageOrdered B y: Dr. Castillo on 12-10-2022 Basophil percentage 0 SEEN /hpf 0-5 [facility] Basophils/100 WBC (Bld) 0.5 % 0-1 [facility] Chloride [Moles/Vol] 106 mmol/L 98-107 [facility] Eosinophils/100 WBC (Bld) 3.3 % 0-5 [facility] Glucose [Mass/Vol] 250 mg/dL 74-106 [facility] Comment on above: Glucose result great er than or equal to 200 mg/dLsuggests DIABETES MELLITUS per A.D.A. criteria. Neutrophils (Bld) [#/Vol] 5.0 10*3/uL 2.0-7.7 [facility] Neutrophils/100 WBC (Bld) 64.8 % 47-70 [facility] Potassium [Moles/Vol] 3.7 mmol/L 3.5-5.1 [facility] Sodium [Moles/Vol] 141 mmol/L 136-145 [facility] WBC (Bld) [#/Vol] 7.7 10*3/uL 4.4-11.0 [facility] Bilirubin Test strip Ql (U)O rdered By: Dr. Castillo on 12-10-2022 Bilirubin Ql (U) Negative Negative [facility] Blood erythrocytes count (nu mber/volume)Ordered By: Dr. Castillo on 12-10-2022 RBC (Bld) [#/Vol] 5.31 10*6/uL 4.6-6.2 [facility] Blood hemoglobin measurement (mass/volume)Ordered By: Dr. Castillo on 12-10-2022 Hemoglobin (Bld) [Mass/Vol] 15.1 g/dL 13.0-16.5 [facility] Blood lymphocytes/100 leukoc ytesOrdered By: Dr. Castillo on 12-10-2022 Lymphocytes/100 WBC (Bld) 23.4 % 19-41 [facility] Blood monocytes/100 leukocyt esOrdered By: Dr. Castillo on 12-10-2022 Monocytes/100 WBC (Bld) 7.3 % 0-10 [facility] Blood platelet mean volumeOr dered By: Dr. Castillo on 12-10-2022 Platelet mean volume (Bld) [Entitic vol] 9.3 fL 6.2-12.0 [facility] Determination of erythrocyte mean corpuscular volume (MCV)Ordered By: Dr. Castillo on 12-10-2022 MCV (RBC) [Entitic vol] 81.7 fL 80-94 [facility] Glucose Glucometer (BldC) [M ass/Vol]Ordered By: Dr. Castillo on 12-10-2022 Glucose [Mass/Vol] 261 mg/dL 74-106 [facility] Comment on above: MANAGEMENT OF PATIEN T CARE PER NURSING PROTOCOL Hematocrit Auto (Bld) [Volum e fraction]Ordered By: Dr. Castillo on 12-10-2022 Hematocrit (Bld) [Volume fraction] 43.4 % 40-54 [facility] Ketones Test strip Ql (U)Ord ered By: Dr. Castillo on 12-10-2022 Ketones Ql (U) Negative Negative [facility] Laboratory - Chemistry and C hemistry - challengeOrdered By: Dr. Castillo on 12-10-2022 CO2 [Moles/Vol] 30.0 mmol/L 21.0-32.0 [facility] Urea nitrogen/Creatinine [Mass ratio] 9.8 mg/mg 10-20 [facility] Laboratory - Hematology and Cell countsOrdered By: Dr. Castillo on 12-10-2022 Erythrocyte distribution width (RBC) [Entitic vol] 39.1 fL 35.1-43.9 [facility] Erythrocyte distribution width (RBC) [Ratio] 13.3 % 11.6-14.6 [facility] Immature granulocytes/100 WBC (Bld) 0.700 % 0.0-0.9 [facility] Comment on above: IG% - Immature Granu locytes (promyelocytes, myelocytes and metamyelocytes) > 1% indicates that a LEFT SHIFT is Present. MCH (RBC) [Entitic mass] 28.4 pg 27.0-32.0 [facility] Nucleated RBC/100 WBC (Bld) [Ratio] 0 % 0-5 [facility] MCHC Auto (RBC) [Mass/Vol]Or dered By: Dr. Castillo on 12-10-2022 MCHC (RBC) [Mass/Vol] 34.8 g/dL 32-36 [facility] Mucus LM Ql (Urine sed)Order ed By: Dr. Castillo on 12-10-2022 Mucus Ql (Urine sed) 0 SEEN /hpf [facility] Nitrite Test strip Ql (U)Ord ered By: Dr. Castillo on 12-10-2022 Nitrite Ql (U) Negative Negative [facility] No Panel InformationOrdered By: Dr. Castillo on 12-10-2022 Estimated Creatinine Clearance Calc 94.63 ml/min [facility] Estimated GFR (MDRD) Amer 95 mL/min >60 [facility] Comment on above: GFR Calc Estimated GFR (MDRD) Non-Af Amer 79 mL/min >60 [facility] Comment on above: Non- GFR Calc Platelets bldOrdered By: Dr. Castillo on 12-10-2022 Platelets (Bld) [#/Vol] 251 10*3/uL 150-450 [facility] Protein Test strip Ql (U)Ord ered By: Dr. Castillo on 12-10-2022 Protein Ql (U) 15 mg/dl Negative [facility] Serum or plasma calcium yayo urement (mass/volume)Ordered By: Dr. Castillo on 12-10-2022 Calcium [Mass/Vol] 9.3 mg/dL 8.5-10.1 [facility] Serum or plasma creatinine m easurement (mass/volume)Ordered By: Dr. Castillo on 12-10-2022 Creatinine [Mass/Vol] 1.02 mg/dL 0.70-1.30 [facility] Comment on above: The validity of the calculated GFR & GFRAA in patients over 70 years has not been determined. Clinical correlation is essential. Serum or plasma urea nitroge n measurement (mass/volume)Ordered By: Dr. Castillo on 12-10-2022 Urea nitrogen [Mass/Vol] 10 mg/dL 7-18 [facility] Squamous epithelial cells de tection in urine sediment by light microscopyOrdered By: Dr. Castillo on 12-10-2022 Epithelial cells.squamous LM Ql (Urine sed) 0-5 SEEN /hpf 0-5 [facility] Thin prep Papanicolaou smear with manual screeningOrdered By: Dr. Castillo on 12-10-2022 Thin prep Papanicolaou smear with manual screening 5 5-15 [facility] Urine blood detectionOrdered By: Dr. Castillo on 12-10-2022 RBC Ql (U) Negative Negative [facility] RBC Ql (U) 0 SEEN /hpf 0-5 [facility] Urine clarityOrdered By: Dr. Castillo on 12-10-2022 Clarity (U) Sl. Cloudy Clear [facility] Urine color determinationOrd ered By: Dr. Castillo on 12-10-2022 Color (U) Yellow Yellow [facility] Urine glucose detectionOrder ed By: Dr. Castillo on 12-10-2022 Glucose Ql (U) 1000 mg/dl Normal [facility] Urine leukocyte esterase det ection by dipstickOrdered By: Dr. Castillo on 12-10-2022 Leukocyte esterase Test strip Ql (U) Negative Negative [facility] Urine pHOrdered By: Dr. Castillo o n 12-10-2022 pH (U) 6.0 [pH] 5.0 - 8.0 [facility] Urine sediment bacteria coun t by microscopy (number/high power field)Ordered By: Dr. Castillo on 12-10-2022 Bacteria LM.HPF (Urine sed) [#/Area] 0 /[HPF] None Seen [facility] Urine specific gravity measu rementOrdered By: Dr. Castillo on 12-10-2022 Specific gravity (U) [Rel density] 1.015 1.002-1.030 [facility] Urobilinogen Auto test strip Ql (U)Ordered By: Dr. Castillo on 12-10-2022 Urobilinogen Ql (U) Normal mg/dl Normal [facility] Basophil percentageOrdered B y: Dr. Calle on 11-25-2022 Chloride [Moles/Vol] 102 mmol/L 98-107 [facility] Glucose [Mass/Vol] 429 mg/dL 74-106 [facility] Comment on above: Glucose result great er than or equal to 200 mg/dLsuggests DIABETES MELLITUS per A.D.A. criteria. Potassium [Moles/Vol] 4.0 mmol/L 3.5-5.1 [facility] Sodium [Moles/Vol] 136 mmol/L 136-145 [facility] Glucose Glucometer (BldC) [M ass/Vol]Ordered By: Dr. Calle on 11-25-2022 Glucose [Mass/Vol] 380 mg/dL 74-106 [facility] Comment on above: MANAGEMENT OF PATIEN T CARE PER NURSING PROTOCOL Laboratory - Chemistry and C hemistry - challengeOrdered By: Dr. Calle on 11-25-2022 CO2 [Moles/Vol] 28.0 mmol/L 21.0-32.0 [facility] Urea nitrogen/Creatinine [Mass ratio] 11.3 mg/mg 10-20 [facility] No Panel InformationOrdered By: Dr. Calle on 11-25-2022 Estimated Creatinine Clearance Calc 99.51 ml/min [facility] Estimated GFR (MDRD) Amer 101 mL/min >60 [facility] Comment on above: GFR Calc Estimated GFR (MDRD) Non-Af Amer 83 mL/min >60 [facility] Comment on above: Non- GFR Calc Serum or plasma calcium yayo urement (mass/volume)Ordered By: Dr. Calle on 11-25-2022 Calcium [Mass/Vol] 9.0 mg/dL 8.5-10.1 [facility] Serum or plasma creatinine m easurement (mass/volume)Ordered By: Dr. Calle on 11-25-2022 Creatinine [Mass/Vol] 0.97 mg/dL 0.70-1.30 [facility] Comment on above: The validity of the calculated GFR & GFRAA in patients over 70 years has not been determined. Clinical correlation is essential. Serum or plasma urea nitroge n measurement (mass/volume)Ordered By: Dr. Calle on 11-25-2022 Urea nitrogen [Mass/Vol] 11 mg/dL 7-18 [facility] Thin prep Papanicolaou smear with manual screeningOrdered By: Dr. Calle on 11-25-2022 Thin prep Papanicolaou smear with manual screening 6 5-15 [facility] Influenza virus A and B and SARS-CoV-2 (COVID-19) Ag panel - Upper respiratory specimOrdered By: Johann Lemons on 10-30-2022 SARS-CoV-2 (COVID-19) RNA IOANA+probe Ql (Resp) [facility] Absolute lymphocyte countOrd ered By: ED PROVIDER on 10-29-2022 Lymphocytes Auto (Unsp spec) [#/Vol] 1.87 10*3/uL 0.83-4.51 [facility] Basophil percentageOrdered B y: ED PROVIDER on 10-29-2022 Basophils/100 WBC (Bld) 0.3 % 0-1 [facility] Chloride [Moles/Vol] 104 mmol/L 98-107 [facility] Eosinophils/100 WBC (Bld) 2.0 % 0-5 [facility] Glucose [Mass/Vol] 361 mg/dL 74-106 [facility] Comment on above: Glucose result great er than or equal to 200 mg/dLsuggests DIABETES MELLITUS per A.D.A. criteria. Neutrophils (Bld) [#/Vol] 8.6 10*3/uL 2.0-7.7 [facility] Neutrophils/100 WBC (Bld) 75.0 % 47-70 [facility] Potassium [Moles/Vol] 4.0 mmol/L 3.5-5.1 [facility] Sodium [Moles/Vol] 136 mmol/L 136-145 [facility] WBC (Bld) [#/Vol] 11.5 10*3/uL 4.4-11.0 [facility] Blood erythrocytes count (nu mber/volume)Ordered By: ED PROVIDER on 10-29-2022 RBC (Bld) [#/Vol] 5.15 10*6/uL 4.6-6.2 [facility] Blood hemoglobin measurement (mass/volume)Ordered By: ED PROVIDER on 10-29-2022 Hemoglobin (Bld) [Mass/Vol] 14.8 g/dL 13.0-16.5 [facility] Blood lymphocytes/100 leukoc ytesOrdered By: ED PROVIDER on 10-29-2022 Lymphocytes/100 WBC (Bld) 16.2 % 19-41 [facility] Blood monocytes/100 leukocyt esOrdered By: ED PROVIDER on 10-29-2022 Monocytes/100 WBC (Bld) 6.2 % 0-10 [facility] Blood platelet mean volumeOr dered By: ED PROVIDER on 10-29-2022 Platelet mean volume (Bld) [Entitic vol] 9.5 fL 6.2-12.0 [facility] Determination of erythrocyte mean corpuscular volume (MCV)Ordered By: ED PROVIDER on 10-29-2022 MCV (RBC) [Entitic vol] 81.9 fL 80-94 [facility] Hematocrit Auto (Bld) [Volum e fraction]Ordered By: ED PROVIDER on 10-29-2022 Hematocrit (Bld) [Volume fraction] 42.2 % 40-54 [facility] Laboratory - Chemistry and C hemistry - challengeOrdered By: ED PROVIDER on 10-29-2022 CO2 [Moles/Vol] 26.0 mmol/L 21.0-32.0 [facility] Urea nitrogen/Creatinine [Mass ratio] 14.8 mg/mg 10-20 [facility] Laboratory - Chemistry and C hemistry - challengeOrdered By: Johann Lemons on 10-29-2022 Magnesium [Mass/Vol] 1.7 mg/dL 1.6-2.6 [facility] Laboratory - Hematology and Cell countsOrdered By: ED PROVIDER on 10-29-2022 Erythrocyte distribution width (RBC) [Entitic vol] 38.6 fL 35.1-43.9 [facility] Erythrocyte distribution width (RBC) [Ratio] 13.1 % 11.6-14.6 [facility] Immature granulocytes/100 WBC (Bld) 0.300 % 0.0-0.9 [facility] Comment on above: IG% - Immature Granu locytes (promyelocytes, myelocytes and metamyelocytes) > 1% indicates that a LEFT SHIFT is Present. MCH (RBC) [Entitic mass] 28.7 pg 27.0-32.0 [facility] Nucleated RBC/100 WBC (Bld) [Ratio] 0 % 0-5 [facility] MCHC Auto (RBC) [Mass/Vol]Or dered By: ED PROVIDER on 10-29-2022 MCHC (RBC) [Mass/Vol] 35.1 g/dL 32-36 [facility] No Panel InformationOrdered By: ED PROVIDER on 10-29-2022 Estimated Creatinine Clearance Calc 83.93 ml/min [facility] Estimated GFR (MDRD) Amer 83 mL/min >60 [facility] Comment on above: GFR Calc Estimated GFR (MDRD) Non-Af Amer 68 mL/min >60 [facility] Comment on above: Non- GFR Calc Platelets bldOrdered By: ED PROVIDER on 10-29-2022 Platelets (Bld) [#/Vol] 224 10*3/uL 150-450 [facility] Serum or plasma calcium yayo urement (mass/volume)Ordered By: ED PROVIDER on 10-29-2022 Calcium [Mass/Vol] 8.9 mg/dL 8.5-10.1 [facility] Serum or plasma creatinine m easurement (mass/volume)Ordered By: ED PROVIDER on 10-29-2022 Creatinine [Mass/Vol] 1.15 mg/dL 0.70-1.30 [facility] Comment on above: The validity of the calculated GFR & GFRAA in patients over 70 years has not been determined. Clinical correlation is essential. Serum or plasma urea nitroge n measurement (mass/volume)Ordered By: ED PROVIDER on 10-29-2022 Urea nitrogen [Mass/Vol] 17 mg/dL 7-18 [facility] Thin prep Papanicolaou smear with manual screeningOrdered By: ED PROVIDER on 10-29-2022 Thin prep Papanicolaou smear with manual screening 6 5-15 [facility] Absolute lymphocyte countOrd ered By: Dr. Wu on 09-18-2022 Lymphocytes Auto (Unsp spec) [#/Vol] 1.62 10*3/uL 0.83-4.51 [facility] Basophil percentageOrdered B y: Dr. Wu on 09-18-2022 Basophils/100 WBC (Bld) 0.5 % 0-1 [facility] Bilirubin [Mass/Vol] 0.50 mg/dL 0.20-1.00 [facility] Comment on above: For patients on eltr ombopag therapy, use of Dimension [place] TBIL is not recommended. Chloride [Moles/Vol] 106 mmol/L 98-107 [facility] Eosinophils/100 WBC (Bld) 3.5 % 0-5 [facility] Glucose [Mass/Vol] 262 mg/dL 74-106 [facility] Comment on above: Glucose result great er than or equal to 200 mg/dLsuggests DIABETES MELLITUS per A.D.A. criteria. Neutrophils (Bld) [#/Vol] 5.4 10*3/uL 2.0-7.7 [facility] Neutrophils/100 WBC (Bld) 68.0 % 47-70 [facility] Potassium [Moles/Vol] 3.7 mmol/L 3.5-5.1 [facility] Protein [Mass/Vol] 7.1 g/dL 6.4-8.2 [facility] Sodium [Moles/Vol] 137 mmol/L 136-145 [facility] WBC (Bld) [#/Vol] 7.9 10*3/uL 4.4-11.0 [facility] Blood erythrocytes count (nu mber/volume)Ordered By: Dr. Wu on 09-18-2022 RBC (Bld) [#/Vol] 4.87 10*6/uL 4.6-6.2 [facility] Blood hemoglobin measurement (mass/volume)Ordered By: Dr. Wu on 09-18-2022 Hemoglobin (Bld) [Mass/Vol] 14.6 g/dL 13.0-16.5 [facility] Blood lymphocytes/100 leukoc ytesOrdered By: Dr. Wu on 09-18-2022 Lymphocytes/100 WBC (Bld) 20.4 % 19-41 [facility] Blood monocytes/100 leukocyt esOrdered By: Dr. Wu on 09-18-2022 Monocytes/100 WBC (Bld) 7.2 % 0-10 [facility] Blood platelet mean volumeOr dered By: Dr. Wu on 09-18-2022 Platelet mean volume (Bld) [Entitic vol] 9.1 fL 6.2-12.0 [facility] Determination of erythrocyte mean corpuscular volume (MCV)Ordered By: Dr. Wu on 09-18-2022 MCV (RBC) [Entitic vol] 83.2 fL 80-94 [facility] Hematocrit Auto (Bld) [Volum e fraction]Ordered By: Dr. Wu on 09-18-2022 Hematocrit (Bld) [Volume fraction] 40.5 % 40-54 [facility] Laboratory - Chemistry and C hemistry - challengeOrdered By: Dr. Wu on 09-18-2022 ALP [Catalytic activity/Vol] 75 U/L 45-117 [facility] ALT [Catalytic activity/Vol] 16 U/L 16-61 [facility] CO2 [Moles/Vol] 24.0 mmol/L 21.0-32.0 [facility] Globulin (S) [Mass/Vol] 3.5 g/dL 2.2-4.2 [facility] Lipase [Catalytic activity/Vol] 64 U/L 73-393 [facility] Urea nitrogen/Creatinine [Mass ratio] 16.3 mg/mg 10-20 [facility] Laboratory - Hematology and Cell countsOrdered By: Dr. Wu on 09-18-2022 Erythrocyte distribution width (RBC) [Entitic vol] 39.2 fL 35.1-43.9 [facility] Erythrocyte distribution width (RBC) [Ratio] 13.1 % 11.6-14.6 [facility] Immature granulocytes/100 WBC (Bld) 0.400 % 0.0-0.9 [facility] Comment on above: IG% - Immature Granu locytes (promyelocytes, myelocytes and metamyelocytes) > 1% indicates that a LEFT SHIFT is Present. MCH (RBC) [Entitic mass] 30.0 pg 27.0-32.0 [facility] Nucleated RBC/100 WBC (Bld) [Ratio] 0 % 0-5 [facility] MCHC Auto (RBC) [Mass/Vol]Or dered By: Dr. Wu on 09-18-2022 MCHC (RBC) [Mass/Vol] 36.0 g/dL 32-36 [facility] No Panel InformationOrdered By: Dr. Wu on 09-18-2022 Estimated Creatinine Clearance Calc 98.49 ml/min [facility] Estimated GFR (MDRD) Amer 100 mL/min >60 [facility] Comment on above: GFR Calc Estimated GFR (MDRD) Non-Af Amer 82 mL/min >60 [facility] Comment on above: Non- GFR Calc Ethyl Alcohol Level < 3.0 mg/dL [facility] Comment on above: The serum:whole bloo d ethanol ratio is approximately 1.14and varies slightly with hematocrit. Medical Alcohol reference interval and critical value innon-tolerant individuals; 50 - 100 Impairment 100 Intoxication 100 - 250 Severe Poisoning 250 - 400 Deep/possible fatal coma Platelets bldOrdered By: Dr. Wu on 09-18-2022 Platelets (Bld) [#/Vol] 188 10*3/uL 150-450 [facility] Serum or plasma albumin yayo urement (mass/volume)Ordered By: Dr. Wu on 09-18-2022 Albumin [Mass/Vol] 3.6 g/dL 3.2-5.0 [facility] Serum or plasma albumin/glob ulin mass ratioOrdered By: Dr. Wu on 09-18-2022 Albumin/Globulin [Mass ratio] 1.0 {ratio} 0.9-2.4 [facility] Serum or plasma calcium yayo urement (mass/volume)Ordered By: Dr. Wu on 09-18-2022 Calcium [Mass/Vol] 9.1 mg/dL 8.5-10.1 [facility] Serum or plasma creatinine m easurement (mass/volume)Ordered By: Dr. Wu on 09-18-2022 Creatinine [Mass/Vol] 0.98 mg/dL 0.70-1.30 [facility] Comment on above: The validity of the calculated GFR & GFRAA in patients over 70 years has not been determined. Clinical correlation is essential. Serum or plasma urea nitroge n measurement (mass/volume)Ordered By: Dr. Wu on 09-18-2022 Urea nitrogen [Mass/Vol] 16 mg/dL 7-18 [facility] Thin prep Papanicolaou smear with manual screeningOrdered By: Dr. Wu on 09-18-2022 Thin prep Papanicolaou smear with manual screening 9 U/L 15-37 [facility] Thin prep Papanicolaou smear with manual screening 7 5-15 [facility] Absolute lymphocyte countOrd ered By: Dr. Mathew on 08-07-2022 Lymphocytes Auto (Unsp spec) [#/Vol] 1.92 10*3/uL 0.83-4.51 [facility] Basophil percentageOrdered B y: Dr. Mathew on 08-07-2022 Basophil percentage 0 SEEN /hpf 0-5 [facility] Basophils/100 WBC (Bld) 0.3 % 0-1 [facility] Bilirubin [Mass/Vol] 0.40 mg/dL 0.20-1.00 [facility] Comment on above: For patients on eltr ombopag therapy, use of Dimension [place] TBIL is not recommended. Chloride [Moles/Vol] 108 mmol/L 98-107 [facility] Eosinophils/100 WBC (Bld) 3.1 % 0-5 [facility] Glucose [Mass/Vol] 194 mg/dL 74-106 [facility] Comment on above: Fasting Glucose resu lt greater than or equal to 126 mg/dL suggests DIABETES MELLITUS per A.D.A. criteria. Neutrophils (Bld) [#/Vol] 6.2 10*3/uL 2.0-7.7 [facility] Neutrophils/100 WBC (Bld) 68.4 % 47-70 [facility] Potassium [Moles/Vol] 3.6 mmol/L 3.5-5.1 [facility] Protein [Mass/Vol] 7.5 g/dL 6.4-8.2 [facility] Sodium [Moles/Vol] 142 mmol/L 136-145 [facility] WBC (Bld) [#/Vol] 9.1 10*3/uL 4.4-11.0 [facility] Bilirubin Test strip Ql (U)O rdered By: Dr. Mathew on 08-07-2022 Bilirubin Ql (U) Negative Negative [facility] Blood erythrocytes count (nu mber/volume)Ordered By: Dr. Mathew on 08-07-2022 RBC (Bld) [#/Vol] 5.01 10*6/uL 4.6-6.2 [facility] Blood hemoglobin measurement (mass/volume)Ordered By: Dr. Mathew on 08-07-2022 Hemoglobin (Bld) [Mass/Vol] 14.4 g/dL 13.0-16.5 [facility] Blood lymphocytes/100 leukoc ytesOrdered By: Dr. Mathew on 08-07-2022 Lymphocytes/100 WBC (Bld) 21.1 % 19-41 [facility] Blood monocytes/100 leukocyt esOrdered By: Dr. Mathew on 08-07-2022 Monocytes/100 WBC (Bld) 6.7 % 0-10 [facility] Blood platelet mean volumeOr dered By: Dr. Mathew on 08-07-2022 Platelet mean volume (Bld) [Entitic vol] 9.5 fL 6.2-12.0 [facility] Determination of erythrocyte mean corpuscular volume (MCV)Ordered By: Dr. Mathew on 08-07-2022 MCV (RBC) [Entitic vol] 84.0 fL 80-94 [facility] Glucose Glucometer (BldC) [M ass/Vol]Ordered By: Dr. Mathew on 08-07-2022 Glucose [Mass/Vol] 193 mg/dL 74-106 [facility] Comment on above: MANAGEMENT OF PATIEN T CARE PER NURSING PROTOCOL Hematocrit Auto (Bld) [Volum e fraction]Ordered By: Dr. Mathew on 08-07-2022 Hematocrit (Bld) [Volume fraction] 42.1 % 40-54 [facility] Ketones Test strip Ql (U)Ord ered By: Dr. Mathew on 08-07-2022 Ketones Ql (U) Negative Negative [facility] Laboratory - Chemistry and C hemistry - challengeOrdered By: Dr. Mathew on 08-07-2022 ALP [Catalytic activity/Vol] 77 U/L 45-117 [facility] ALT [Catalytic activity/Vol] 16 U/L 16-61 [facility] CO2 [Moles/Vol] 28.0 mmol/L 21.0-32.0 [facility] Globulin (S) [Mass/Vol] 3.6 g/dL 2.2-4.2 [facility] Urea nitrogen/Creatinine [Mass ratio] 8.7 mg/mg 10-20 [facility] Laboratory - Hematology and Cell countsOrdered By: Dr. Mathew on 08-07-2022 Erythrocyte distribution width (RBC) [Entitic vol] 42.5 fL 35.1-43.9 [facility] Erythrocyte distribution width (RBC) [Ratio] 14.0 % 11.6-14.6 [facility] Immature granulocytes/100 WBC (Bld) 0.400 % 0.0-0.9 [facility] Comment on above: IG% - Immature Granu locytes (promyelocytes, myelocytes and metamyelocytes) > 1% indicates that a LEFT SHIFT is Present. MCH (RBC) [Entitic mass] 28.7 pg 27.0-32.0 [facility] Nucleated RBC/100 WBC (Bld) [Ratio] 0 % 0-5 [facility] MCHC Auto (RBC) [Mass/Vol]Or dered By: Dr. Mathew on 08-07-2022 MCHC (RBC) [Mass/Vol] 34.2 g/dL 32-36 [facility] Mucus LM Ql (Urine sed)Order ed By: Dr. Mathew on 08-07-2022 Mucus Ql (Urine sed) 0 SEEN /hpf [facility] Nitrite Test strip Ql (U)Ord ered By: Dr. Mathew on 08-07-2022 Nitrite Ql (U) Negative Negative [facility] No Panel InformationOrdered By: Dr. Mathew on 08-07-2022 Estimated Creatinine Clearance Calc 104.92 ml/min [facility] Estimated GFR (MDRD) Amer 107 mL/min >60 [facility] Comment on above: GFR Calc Estimated GFR (MDRD) Non-Af Amer 89 mL/min >60 [facility] Comment on above: Non- GFR Calc Platelets bldOrdered By: Dr. Mathew on 08-07-2022 Platelets (Bld) [#/Vol] 227 10*3/uL 150-450 [facility] Protein Test strip Ql (U)Ord ered By: Dr. Mathew on 08-07-2022 Protein Ql (U) Negative Negative [facility] Serum or plasma albumin yayo urement (mass/volume)Ordered By: Dr. Mathew on 08-07-2022 Albumin [Mass/Vol] 3.9 g/dL 3.2-5.0 [facility] Serum or plasma albumin/glob ulin mass ratioOrdered By: Dr. Mathew on 08-07-2022 Albumin/Globulin [Mass ratio] 1.1 {ratio} 0.9-2.4 [facility] Serum or plasma calcium yayo urement (mass/volume)Ordered By: Dr. Mathew on 08-07-2022 Calcium [Mass/Vol] 9.1 mg/dL 8.5-10.1 [facility] Serum or plasma creatinine m easurement (mass/volume)Ordered By: Dr. Mathew on 08-07-2022 Creatinine [Mass/Vol] 0.92 mg/dL 0.70-1.30 [facility] Comment on above: The validity of the calculated GFR & GFRAA in patients over 70 years has not been determined. Clinical correlation is essential. Serum or plasma urea nitroge n measurement (mass/volume)Ordered By: Dr. Mathew on 08-07-2022 Urea nitrogen [Mass/Vol] 8 mg/dL 7-18 [facility] Squamous epithelial cells de tection in urine sediment by light microscopyOrdered By: Dr. Mathew on 08-07-2022 Epithelial cells.squamous LM Ql (Urine sed) 0 SEEN /hpf 0-5 [facility] Thin prep Papanicolaou smear with manual screeningOrdered By: Dr. Mathew on 08-07-2022 Thin prep Papanicolaou smear with manual screening 7 U/L 15-37 [facility] Thin prep Papanicolaou smear with manual screening 6 5-15 [facility] Urine blood detectionOrdered By: Dr. Mathew on 08-07-2022 RBC Ql (U) Negative Negative [facility] RBC Ql (U) 0 SEEN /hpf 0-5 [facility] Urine clarityOrdered By: Dr. Mathew on 08-07-2022 Clarity (U) Clear Clear [facility] Urine color determinationOrd ered By: Dr. Mathew on 08-07-2022 Color (U) Straw Yellow [facility] Urine glucose detectionOrder ed By: Dr. Mathew on 08-07-2022 Glucose Ql (U) Normal mg/dl Normal [facility] Urine leukocyte esterase det ection by dipstickOrdered By: Dr. Mathew on 08-07-2022 Leukocyte esterase Test strip Ql (U) Negative Negative [facility] Urine pHOrdered By: Dr. Flores ica on 08-07-2022 pH (U) 6.0 [pH] 5.0 - 8.0 [facility] Urine sediment bacteria coun t by microscopy (number/high power field)Ordered By: Dr. Mathew on 08-07-2022 Bacteria LM.HPF (Urine sed) [#/Area] 0 /[HPF] None Seen [facility] Urine specific gravity measu rementOrdered By: Dr. Mathew on 08-07-2022 Specific gravity (U) [Rel density] 1.010 1.002-1.030 [facility] Urobilinogen Auto test strip Ql (U)Ordered By: Dr. Mathew on 08-07-2022 Urobilinogen Ql (U) Normal mg/dl Normal [facility] Absolute lymphocyte counton 07-02-2022 Lymphocytes Auto (Unsp spec) [#/Vol] 1.81 10*3/uL 0.83-4.51 [facility] Work Phone: Basophil percentageon 2021 Basophils/100 WBC (Bld) 0.4 % 0-1 [facility] Work Phone: Chloride [Moles/Vol] 107 mmol/L 98-107 [facility] Work Phone: Eosinophils/100 WBC (Bld) 2.5 % 0-5 [facility] Work Phone: Glucose [Mass/Vol] 132 mg/dL 74-106 [facility] Work Phone: Comment on above: Fasting Glucose resu lt greater than or equal to 126 mg/dL suggests DIABETES MELLITUS per A.D.A. criteria. Neutrophils (Bld) [#/Vol] 4.9 10*3/uL 2.0-7.7 [facility] Work Phone: Neutrophils/100 WBC (Bld) 64.6 % 47-70 [facility] Work Phone: Potassium [Moles/Vol] 3.7 mmol/L 3.5-5.1 [facility] Work Phone: Sodium [Moles/Vol] 142 mmol/L 136-145 [facility] Work Phone: [phone] WBC (Bld) [#/Vol] 7.5 10*3/uL 4.4-11.0 [facility] Work Phone: [phone] Basophil percentage 0 SEEN /hpf 0-5 [facility] Work Phone: [phone] Bilirubin Test strip Ql (U)o n 07-02-2022 Bilirubin Ql (U) Negative Negative [facility] Work Phone: [phone] Blood erythrocytes count (nu mber/volume)on 07-02-2022 RBC (Bld) [#/Vol] 5.07 10*6/uL 4.6-6.2 [facility] Work Phone: [phone] Blood hemoglobin measurement (mass/volume)on 07-02-2022 Hemoglobin (Bld) [Mass/Vol] 14.5 g/dL 13.0-16.5 [facility] Work Phone: Blood lymphocytes/100 leukoc yteson 07-02-2022 Lymphocytes/100 WBC (Bld) 24.1 % 19-41 [facility] Work Phone: Blood monocytes/100 leukocyt eson 07-02-2022 Monocytes/100 WBC (Bld) 8.1 % 0-10 [facility] Work Phone: [phone] Blood platelet mean volumeon 07-02-2022 Platelet mean volume (Bld) [Entitic vol] 9.1 fL 6.2-12.0 [facility] Work Phone: [phone] Determination of erythrocyte mean corpuscular volume (MCV)on 07-02-2022 MCV (RBC) [Entitic vol] 82.6 fL 80-94 [facility] Work Phone: Hematocrit Auto (Bld) [Volum e fraction]on 07-02-2022 Hematocrit (Bld) [Volume fraction] 41.9 % 40-54 [facility] Work Phone: [phone] Ketones Test strip Ql (U)on 07-02-2022 Ketones Ql (U) Negative Negative [facility] Work Phone: Laboratory - Chemistry and C hemistry - challengeon 07-02-2022 CO2 [Moles/Vol] 30.0 mmol/L 21.0-32.0 [facility] Work Phone: Urea nitrogen/Creatinine [Mass ratio] 16.1 mg/mg 10-20 [facility] Work Phone: Laboratory - Hematology and Cell countson 07-02-2022 Erythrocyte distribution width (RBC) [Entitic vol] 40.1 fL 35.1-43.9 [facility] Work Phone: Erythrocyte distribution width (RBC) [Ratio] 13.5 % 11.6-14.6 [facility] Work Phone: Immature granulocytes/100 WBC (Bld) 0.300 % 0.0-0.9 [facility] Work Phone: Comment on above: IG% - Immature Granu locytes (promyelocytes, myelocytes and metamyelocytes) > 1% indicates that a LEFT SHIFT is Present. MCH (RBC) [Entitic mass] 28.6 pg 27.0-32.0 [facility] Work Phone: Nucleated RBC/100 WBC (Bld) [Ratio] 0 % 0-5 [facility] Work Phone: MCHC Auto (RBC) [Mass/Vol]on 07-02-2022 MCHC (RBC) [Mass/Vol] 34.6 g/dL 32-36 [facility] Work Phone: Mucus LM Ql (Urine sed)on Mucus Ql (Urine sed) 1+ /hpf [facility] Work Phone: Nitrite Test strip Ql (U)on 07-02-2022 Nitrite Ql (U) Negative Negative [facility] Work Phone: No Panel Informationon 07-02 Estimated Creatinine Clearance Calc 110.95 ml/min [facility] Work Phone: Estimated GFR (MDRD) Amer 114 mL/min >60 [facility] Work Phone: Comment on above: GFR Calc Estimated GFR (MDRD) Non-Af Amer 94 mL/min >60 [facility] Work Phone: Comment on above: Non- GFR Calc Platelets bldon 07-02-2022 Platelets (Bld) [#/Vol] 189 10*3/uL 150-450 [facility] Work Phone: Protein Test strip Ql (U)on 07-02-2022 Protein Ql (U) 15 mg/dl Negative [facility] Work Phone: Serum or plasma calcium yayo urement (mass/volume)on 07-02-2022 Calcium [Mass/Vol] 9.1 mg/dL 8.5-10.1 [facility] Work Phone: Serum or plasma creatinine m easurement (mass/volume)on 07-02-2022 Creatinine [Mass/Vol] 0.87 mg/dL 0.70-1.30 [facility] Work Phone: Comment on above: The validity of the calculated GFR & GFRAA in patients over 70 years has not been determined. Clinical correlation is essential. Serum or plasma urea nitroge n measurement (mass/volume)on 07-02-2022 Urea nitrogen [Mass/Vol] 14 mg/dL 7-18 [facility] Work Phone: Squamous epithelial cells de tection in urine sediment by light microscopyon 07-02-2022 Epithelial cells.squamous LM Ql (Urine sed) 0-5 SEEN /hpf 0-5 [facility] Work Phone: Thin prep Papanicolaou smear with manual screeningon 07-02-2022 Thin prep Papanicolaou smear with manual screening 5 5-15 [facility] Work Phone: Urine blood detectionon RBC Ql (U) Negative Negative [facility] Work Phone: RBC Ql (U) 0 SEEN /hpf 0-5 [facility] Work Phone: Urine clarityon 07-02-2022 Clarity (U) Clear Clear [facility] Work Phone: [phone] Urine color determinationon 07-02-2022 Color (U) Yellow Yellow [facility] Work Phone: Urine glucose detectionon Glucose Ql (U) 100 mg/dl Normal [facility] Work Phone: Urine leukocyte esterase det ection by dipstickon 07-02-2022 Leukocyte esterase Test strip Ql (U) Negative Negative [facility] Work Phone: [phone] Urine pHon 07-02-2022 pH (U) 7.0 [pH] 5.0 - 8.0 [facility] Work Phone: [phone] Urine sediment bacteria coun t by microscopy (number/high power field)on 07-02-2022 Bacteria LM.HPF (Urine sed) [#/Area] 1 /[HPF] None Seen [facility] Work Phone: Urine specific gravity measu rementon 07-02-2022 Specific gravity (U) [Rel density] 1.010 1.002-1.030 [facility] Work Phone: [phone] Urobilinogen Auto test strip Ql (U)on 07-02-2022 Urobilinogen Ql (U) 1 mg/dl Normal [facility] Work Phone: [phone] Absolute lymphocyte counton 04-26-2022 Lymphocytes Auto (Unsp spec) [#/Vol] 1.44 10*3/uL 0.83-4.51 [facility] Work Phone: Basophil percentageon 2021 Basophil percentage 0 SEEN /hpf 0-5 [facility] Work Phone: Basophils/100 WBC (Bld) 0.3 % 0-1 [facility] Work Phone: Chloride [Moles/Vol] 109 mmol/L 98-107 [facility] Work Phone: Eosinophils/100 WBC (Bld) 4.3 % 0-5 [facility] Work Phone: Glucose [Mass/Vol] 121 mg/dL 74-106 [facility] Work Phone: [phone] Comment on above: Fasting Glucose resu lt from 100 to 125 mg/dL suggests IMPAIRED HOMEOSTASIS per A.D.A. criteria. Neutrophils (Bld) [#/Vol] 4.4 10*3/uL 2.0-7.7 [facility] Work Phone: Neutrophils/100 WBC (Bld) 66.3 % 47-70 [facility] Work Phone: [phone] Potassium [Moles/Vol] 3.6 mmol/L 3.5-5.1 [facility] Work Phone: Sodium [Moles/Vol] 142 mmol/L 136-145 [facility] Work Phone: WBC (Bld) [#/Vol] 6.7 10*3/uL 4.4-11.0 [facility] Work Phone: [phone] Bilirubin Test strip Ql (U)o n 04-26-2022 Bilirubin Ql (U) Negative Negative [facility] Work Phone: [phone] Blood erythrocytes count (nu mber/volume)on 04-26-2022 RBC (Bld) [#/Vol] 4.97 10*6/uL 4.6-6.2 [facility] Work Phone: [phone] Blood hemoglobin measurement (mass/volume)on 04-26-2022 Hemoglobin (Bld) [Mass/Vol] 14.1 g/dL 13.0-16.5 [facility] Work Phone: Blood lymphocytes/100 leukoc yteson 04-26-2022 Lymphocytes/100 WBC (Bld) 21.5 % 19-41 [facility] Work Phone: Blood monocytes/100 leukocyt eson 04-26-2022 Monocytes/100 WBC (Bld) 7.3 % 0-10 [facility] Work Phone: Blood platelet mean volumeon 04-26-2022 Platelet mean volume (Bld) [Entitic vol] 9.1 fL 6.2-12.0 [facility] Work Phone: Determination of erythrocyte mean corpuscular volume (MCV)on 04-26-2022 MCV (RBC) [Entitic vol] 80.7 fL 80-94 [facility] Work Phone: Hematocrit Auto (Bld) [Volum e fraction]on 04-26-2022 Hematocrit (Bld) [Volume fraction] 40.1 % 40-54 [facility] Work Phone: Ketones Test strip Ql (U)on 04-26-2022 Ketones Ql (U) Negative Negative [facility] Work Phone: Laboratory - Chemistry and C hemistry - challengeon 04-26-2022 CO2 [Moles/Vol] 28.0 mmol/L 21.0-32.0 [facility] Work Phone: Urea nitrogen/Creatinine [Mass ratio] 10.9 mg/mg 10-20 [facility] Work Phone: Laboratory - Hematology and Cell countson 04-26-2022 Erythrocyte distribution width (RBC) [Entitic vol] 38.6 fL 35.1-43.9 [facility] Work Phone: [phone] Erythrocyte distribution width (RBC) [Ratio] 13.4 % 11.6-14.6 [facility] Work Phone: Immature granulocytes/100 WBC (Bld) 0.300 % 0.0-0.9 [facility] Work Phone: Comment on above: IG% - Immature Granu locytes (promyelocytes, myelocytes and metamyelocytes) > 1% indicates that a LEFT SHIFT is Present. MCH (RBC) [Entitic mass] 28.4 pg 27.0-32.0 [facility] Work Phone: [phone] Nucleated RBC/100 WBC (Bld) [Ratio] 0 % 0-5 [facility] Work Phone: MCHC Auto (RBC) [Mass/Vol]on 04-26-2022 MCHC (RBC) [Mass/Vol] 35.2 g/dL 32-36 [facility] Work Phone: Mucus LM Ql (Urine sed)on Mucus Ql (Urine sed) 0 SEEN /hpf [facility] Work Phone: Nitrite Test strip Ql (U)on 04-26-2022 Nitrite Ql (U) Negative Negative [facility] Work Phone: No Panel Informationon 04-26 Troponin I High Sensitivity 3 pg/mL 3.0-78.0 [facility] Work Phone: Comment on above: Please Note: New Kira t Units and Gender Specific Reference Ranges. For more information see Policy Stat Procedure [place] High Sensitivity Troponin (TNIH) and attachments. Estimated Creatinine Clearance Calc 116.30 ml/min [facility] Work Phone: Estimated GFR (MDRD) Amer 121 mL/min >60 [facility] Work Phone: Comment on above: GFR Calc Estimated GFR (MDRD) Non-Af Amer 100 mL/min >60 [facility] Work Phone: Comment on above: Non- GFR Calc Platelets bldon 04-26-2022 Platelets (Bld) [#/Vol] 191 10*3/uL 150-450 [facility] Work Phone: Protein Test strip Ql (U)on 04-26-2022 Protein Ql (U) Negative Negative [facility] Work Phone: Serum or plasma calcium yayo urement (mass/volume)on 04-26-2022 Calcium [Mass/Vol] 8.8 mg/dL 8.5-10.1 [facility] Work Phone: Serum or plasma creatinine m easurement (mass/volume)on 04-26-2022 Creatinine [Mass/Vol] 0.83 mg/dL 0.70-1.30 [facility] Work Phone: Comment on above: The validity of the calculated GFR & GFRAA in patients over 70 years has not been determined. Clinical correlation is essential. Serum or plasma urea nitroge n measurement (mass/volume)on 04-26-2022 Urea nitrogen [Mass/Vol] 9 mg/dL 7-18 [facility] Work Phone: Squamous epithelial cells de tection in urine sediment by light microscopyon 04-26-2022 Epithelial cells.squamous LM Ql (Urine sed) 0 SEEN /hpf 0-5 [facility] Work Phone: Thin prep Papanicolaou smear with manual screeningon 04-26-2022 Thin prep Papanicolaou smear with manual screening 5 5-15 [facility] Work Phone: [phone] Urine blood detectionon 04-01 RBC Ql (U) Negative Negative [facility] Work Phone: [phone] RBC Ql (U) 0 SEEN /hpf 0-5 [facility] Work Phone: [phone] Urine clarityon 04-26-2022 Clarity (U) Clear Clear [facility] Work Phone: Urine color determinationon 04-26-2022 Color (U) Yellow Yellow [facility] Work Phone: Urine glucose detectionon Glucose Ql (U) Normal mg/dl Normal [facility] Work Phone: Urine leukocyte esterase det ection by dipstickon 04-26-2022 Leukocyte esterase Test strip Ql (U) Negative Negative [facility] Work Phone: [phone] Urine pHon 04-26-2022 pH (U) 6.0 [pH] 5.0 - 8.0 [facility] Work Phone: [phone] Urine sediment bacteria coun t by microscopy (number/high power field)on 04-26-2022 Bacteria LM.HPF (Urine sed) [#/Area] 0 /[HPF] None Seen [facility] Work Phone: Urine specific gravity measu rementon 04-26-2022 Specific gravity (U) [Rel density] 1.010 1.002-1.030 [facility] Work Phone: Urobilinogen Auto test strip Ql (U)on 04-26-2022 Urobilinogen Ql (U) Normal mg/dl Normal [facility] Work Phone: Glucose Glucometer (BldC) [M ass/Vol]on 03-20-2022 Glucose [Mass/Vol] 153 mg/dL 74-106 [facility] Work Phone: Comment on above: MANAGEMENT OF PATIEN T CARE PER NURSING PROTOCOL No Panel Informationon 03-20 D-Dimer Quantitative (PE/DVT) 0.75 FEU/ug/m 0.27-0.49 [facility] Work Phone: Comment on above: D-Dimer ELEVATED (>0 .49): Additional studies and clinicalassessments are indicated to conclude diagnosis of:Deep Vein Thrombosis (DVT) or Pulmonary Embolism (PE)CRITICAL VALUE VERIFIED. CALLED TO RACIEL JONES03/20/22 0757 Loida Townsend.RESULTS READ BACK BY SAME . Absolute lymphocyte counton 03-19-2022 Lymphocytes Auto (Unsp spec) [#/Vol] 1.56 10*3/uL 0.83-4.51 [facility] Work Phone: Assessment of wrist artery p atency prior to arterial punctureon 03-19-2022 Arterial patency Wrist artery --pre arterial puncture Positive [facility] Work Phone: Base excesson 03-19-2022 Base excess Calc (BldV) [Moles/Vol] 2 mmol/L -2-2 [facility] Work Phone: Basophil percentageon 2021 Basophil percentage 0-5 SEEN /hpf 0-5 [facility] Work Phone: Basophil percentage 25.7 mmol/L 22-26 [facility] Work Phone: Basophils/100 WBC (Bld) 92 % 95-99 [facility] Work Phone: Basophils/100 WBC (Bld) 0.5 % 0-1 [facility] Work Phone: Bilirubin [Mass/Vol] 1.10 mg/dL 0.20-1.00 [facility] Work Phone: [phone] Comment on above: For patients on eltr ombopag therapy, use of Dimension [place] TBIL is not recommended. Chloride [Moles/Vol] 106 mmol/L 98-107 [facility] Work Phone: Eosinophils/100 WBC (Bld) 2.4 % 0-5 [facility] Work Phone: Glucose [Mass/Vol] 167 mg/dL 74-106 [facility] Work Phone: Comment on above: Fasting Glucose resu lt greater than or equal to 126 mg/dL suggests DIABETES MELLITUS per A.D.A. criteria. Lactate [Moles/Vol] 1.2 mmol/L 0.4-2.0 [facility] Work Phone: Neutrophils (Bld) [#/Vol] 7.8 10*3/uL 2.0-7.7 [facility] Work Phone: Neutrophils/100 WBC (Bld) 74.4 % 47-70 [facility] Work Phone: Potassium [Moles/Vol] 3.6 mmol/L 3.5-5.1 [facility] Work Phone: Protein [Mass/Vol] 7.2 g/dL 6.4-8.2 [facility] Work Phone: Sodium [Moles/Vol] 141 mmol/L 136-145 [facility] Work Phone: WBC (Bld) [#/Vol] 10.5 10*3/uL 4.4-11.0 [facility] Work Phone: Bilirubin Test strip Ql (U)o n 03-19-2022 Bilirubin Ql (U) Negative Negative [facility] Work Phone: Blood erythrocytes count (nu mber/volume)on 03-19-2022 RBC (Bld) [#/Vol] 5.05 10*6/uL 4.6-6.2 [facility] Work Phone: Blood hemoglobin measurement (mass/volume)on 03-19-2022 Hemoglobin (Bld) [Mass/Vol] 14.5 g/dL 13.0-16.5 [facility] Work Phone: Blood lymphocytes/100 leukoc yteson 03-19-2022 Lymphocytes/100 WBC (Bld) 14.9 % 19-41 [facility] Work Phone: Blood monocytes/100 leukocyt eson 03-19-2022 Monocytes/100 WBC (Bld) 7.3 % 0-10 [facility] Work Phone: Blood platelet mean volumeon 03-19-2022 Platelet mean volume (Bld) [Entitic vol] 9.1 fL 6.2-12.0 [facility] Work Phone: CO2 (BldA) [Partial pressure ]on 03-19-2022 CO2 (Bld) [Partial pressure] 37.6 mm[Hg] 35-45 [facility] Work Phone: Determination of erythrocyte mean corpuscular volume (MCV)on 03-19-2022 MCV (RBC) [Entitic vol] 83.4 fL 80-94 [facility] Work Phone: Hematocrit Auto (Bld) [Volum e fraction]on 03-19-2022 Hematocrit (Bld) [Volume fraction] 42.1 % 40-54 [facility] Work Phone: [phone] INR in Blood by Coagulation assayon 03-19-2022 INR Coag (Bld) [Relative time] 1.1 {INR} [facility] Work Phone: Ketones Test strip Ql (U)on 03-19-2022 Ketones Ql (U) Negative Negative [facility] Work Phone: [phone] Laboratory - Chemistry and C hemistry - challengeon 03-19-2022 ALP [Catalytic activity/Vol] 68 U/L 45-117 [facility] Work Phone: ALT [Catalytic activity/Vol] 14 U/L 16-61 [facility] Work Phone: CO2 [Moles/Vol] 28.0 mmol/L 21.0-32.0 [facility] Work Phone: [phone] Globulin (S) [Mass/Vol] 3.5 g/dL 2.2-4.2 [facility] Work Phone: [phone] Urea nitrogen/Creatinine [Mass ratio] 16.4 mg/mg 10-20 [facility] Work Phone: [phone] Laboratory - Coagulationon 0 03-19-2022 PT Coag (PPP) [Time] 14.1 s 11.7-14.9 [facility] Work Phone: [phone] Laboratory - Hematology and Cell countson 03-19-2022 Erythrocyte distribution width (RBC) [Entitic vol] 41.2 fL 35.1-43.9 [facility] Work Phone: [phone] Erythrocyte distribution width (RBC) [Ratio] 13.5 % 11.6-14.6 [facility] Work Phone: [phone] Immature granulocytes/100 WBC (Bld) 0.500 % 0.0-0.9 [facility] Work Phone: [phone] Comment on above: IG% - Immature Granu locytes (promyelocytes, myelocytes and metamyelocytes) > 1% indicates that a LEFT SHIFT is Present. MCH (RBC) [Entitic mass] 28.7 pg 27.0-32.0 [facility] Work Phone: [phone] Nucleated RBC/100 WBC (Bld) [Ratio] 0 % 0-5 [facility] Work Phone: [phone] MCHC Auto (RBC) [Mass/Vol]on 03-19-2022 MCHC (RBC) [Mass/Vol] 34.4 g/dL 32-36 [facility] Work Phone: [phone] Mucus LM Ql (Urine sed)on Mucus Ql (Urine sed) 0 SEEN /hpf [facility] Work Phone: [phone] Nitrite Test strip Ql (U)on 03-19-2022 Nitrite Ql (U) Negative Negative [facility] Work Phone: No Panel Informationon 03-19 SARS-CoV-2 & FLU Antigen (Rapid) [facility] Work Phone: Blood Gas Sample Site L Radial [facility] Work Phone: Blood Gas Specimen Type ART [facility] Work Phone: Blood Gas Total CO2 27 mmol/L [facility] Work Phone: Oxygen Delivery Device Room Air [facility] Work Phone: Estimated Creatinine Clearance Calc 88.88 ml/min [facility] Work Phone: Estimated GFR (MDRD) Amer 87 mL/min >60 [facility] Work Phone: Comment on above: GFR Calc Estimated GFR (MDRD) Non-Af Amer 72 mL/min >60 [facility] Work Phone: Comment on above: Non- GFR Calc Troponin I High Sensitivity < 3 pg/mL 3.0-78.0 [facility] Work Phone: Comment on above: Please Note: New Kira t Units and Gender Specific Reference Ranges. For more information see Policy Stat Procedure [place] High Sensitivity Troponin (TNIH) and attachments. Oxygen (BldA) [Partial press ure]on 03-19-2022 Oxygen (Bld) [Partial pressure] 62 mmHG 75-100 [facility] Work Phone: Platelets bldon 03-19-2022 Platelets (Bld) [#/Vol] 278 10*3/uL 150-450 [facility] Work Phone: Protein Test strip Ql (U)on 03-19-2022 Protein Ql (U) 30 mg/dl Negative [facility] Work Phone: Serum or plasma albumin yayo urement (mass/volume)on 03-19-2022 Albumin [Mass/Vol] 3.7 g/dL 3.2-5.0 [facility] Work Phone: Serum or plasma albumin/glob ulin mass ratioon 03-19-2022 Albumin/Globulin [Mass ratio] 1.1 {ratio} 0.9-2.4 [facility] Work Phone: Serum or plasma calcium yayo urement (mass/volume)on 03-19-2022 Calcium [Mass/Vol] 9.0 mg/dL 8.5-10.1 [facility] Work Phone: Serum or plasma creatinine m easurement (mass/volume)on 03-19-2022 Creatinine [Mass/Vol] 1.10 mg/dL 0.70-1.30 [facility] Work Phone: Comment on above: The validity of the calculated GFR & GFRAA in patients over 70 years has not been determined. Clinical correlation is essential. Serum or plasma urea nitroge n measurement (mass/volume)on 03-19-2022 Urea nitrogen [Mass/Vol] 18 mg/dL 7-18 [facility] Work Phone: Squamous epithelial cells de tection in urine sediment by light microscopyon 03-19-2022 Epithelial cells.squamous LM Ql (Urine sed) 0-5 SEEN /hpf 0-5 [facility] Work Phone: Thin prep Papanicolaou smear with manual screeningon 03-19-2022 Thin prep Papanicolaou smear with manual screening 10 U/L 15-37 [facility] Work Phone: [phone] Thin prep Papanicolaou smear with manual screening 7 5-15 [facility] Work Phone: Urine blood detectionon 03-01 0 RBC Ql (U) Negative Negative [facility] Work Phone: RBC Ql (U) 0 SEEN /hpf 0-5 [facility] Work Phone: Urine clarityon 03-19-2022 Clarity (U) Clear Clear [facility] Work Phone: Urine color determinationon 03-19-2022 Color (U) Yellow Yellow [facility] Work Phone: Urine glucose detectionon Glucose Ql (U) Normal mg/dl Normal [facility] Work Phone: [phone] Urine leukocyte esterase det ection by dipstickon 03-19-2022 Leukocyte esterase Test strip Ql (U) 25 /ul Negative [facility] Work Phone: Urine pHon 03-19-2022 pH (U) 5.0 [pH] 5.0 - 8.0 [facility] Work Phone: [phone] Urine sediment bacteria coun t by microscopy (number/high power field)on 03-19-2022 Bacteria LM.HPF (Urine sed) [#/Area] 0 /[HPF] None Seen [facility] Work Phone: Urine specific gravity measu rementon 03-19-2022 Specific gravity (U) [Rel density] 1.020 1.002-1.030 [facility] Work Phone: [phone] Urobilinogen Auto test strip Ql (U)on 03-19-2022 Urobilinogen Ql (U) 1 mg/dl Normal [facility] Work Phone: [phone] pH measurementon 03-19-2022 pH (Unsp spec) 7.44 [pH] 7.35-7.45 [facility] Work Phone: [phone] Absolute lymphocyte counton 03-02-2022 Lymphocytes Auto (Unsp spec) [#/Vol] 1.57 10*3/uL 0.83-4.51 [facility] Work Phone: [phone] Basophil percentageon 2021 Basophils/100 WBC (Bld) 0.7 % 0-1 [facility] Work Phone: [phone] Bilirubin [Mass/Vol] 0.40 mg/dL 0.20-1.00 [facility] Work Phone: [phone] Comment on above: For patients on eltr ombopag therapy, use of Dimension [place] TBIL is not recommended. Chloride [Moles/Vol] 108 mmol/L 98-107 [facility] Work Phone: [phone] Eosinophils/100 WBC (Bld) 3.8 % 0-5 [facility] Work Phone: [phone] Glucose [Mass/Vol] 222 mg/dL 74-106 [facility] Work Phone: Comment on above: Glucose result great er than or equal to 200 mg/dLsuggests DIABETES MELLITUS per A.D.A. criteria. Neutrophils (Bld) [#/Vol] 4.8 10*3/uL 2.0-7.7 [facility] Work Phone: Neutrophils/100 WBC (Bld) 66.5 % 47-70 [facility] Work Phone: Potassium [Moles/Vol] 3.5 mmol/L 3.5-5.1 [facility] Work Phone: Protein [Mass/Vol] 7.2 g/dL 6.4-8.2 [facility] Work Phone: Sodium [Moles/Vol] 141 mmol/L 136-145 [facility] Work Phone: WBC (Bld) [#/Vol] 7.2 10*3/uL 4.4-11.0 [facility] Work Phone: Blood erythrocytes count (nu mber/volume)on 03-02-2022 RBC (Bld) [#/Vol] 4.75 10*6/uL 4.6-6.2 [facility] Work Phone: Blood hemoglobin measurement (mass/volume)on 03-02-2022 Hemoglobin (Bld) [Mass/Vol] 13.7 g/dL 13.0-16.5 [facility] Work Phone: Blood lymphocytes/100 leukoc yteson 03-02-2022 Lymphocytes/100 WBC (Bld) 21.9 % 19-41 [facility] Work Phone: Blood monocytes/100 leukocyt eson 03-02-2022 Monocytes/100 WBC (Bld) 6.8 % 0-10 [facility] Work Phone: Blood platelet mean volumeon 03-02-2022 Platelet mean volume (Bld) [Entitic vol] 9.6 fL 6.2-12.0 [facility] Work Phone: [phone] Determination of erythrocyte mean corpuscular volume (MCV)on 03-02-2022 MCV (RBC) [Entitic vol] 82.1 fL 80-94 [facility] Work Phone: [phone] Hematocrit Auto (Bld) [Volum e fraction]on 03-02-2022 Hematocrit (Bld) [Volume fraction] 39.0 % 40-54 [facility] Work Phone: [phone] Laboratory - Chemistry and C hemistry - challengeon 03-02-2022 ALP [Catalytic activity/Vol] 69 U/L 45-117 [facility] Work Phone: ALT [Catalytic activity/Vol] 15 U/L 16-61 [facility] Work Phone: [phone] CO2 [Moles/Vol] 26.0 mmol/L 21.0-32.0 [facility] Work Phone: [phone] Globulin (S) [Mass/Vol] 3.5 g/dL 2.2-4.2 [facility] Work Phone: [phone] Urea nitrogen/Creatinine [Mass ratio] 14.9 mg/mg 10-20 [facility] Work Phone: [phone] Laboratory - Hematology and Cell countson 03-02-2022 Erythrocyte distribution width (RBC) [Entitic vol] 40.8 fL 35.1-43.9 [facility] Work Phone: [phone] Erythrocyte distribution width (RBC) [Ratio] 13.9 % 11.6-14.6 [facility] Work Phone: [phone] Immature granulocytes/100 WBC (Bld) 0.300 % 0.0-0.9 [facility] Work Phone: [phone] Comment on above: IG% - Immature Granu locytes (promyelocytes, myelocytes and metamyelocytes) > 1% indicates that a LEFT SHIFT is Present. MCH (RBC) [Entitic mass] 28.8 pg 27.0-32.0 [facility] Work Phone: [phone] Nucleated RBC/100 WBC (Bld) [Ratio] 0 % 0-5 [facility] Work Phone: MCHC Auto (RBC) [Mass/Vol]on 03-02-2022 MCHC (RBC) [Mass/Vol] 35.1 g/dL 32-36 [facility] Work Phone: No Panel Informationon 03-02 Estimated Creatinine Clearance Calc 104.00 ml/min [facility] Work Phone: Estimated GFR (MDRD) Amer 105 mL/min >60 [facility] Work Phone: Comment on above: GFR Calc Estimated GFR (MDRD) Non-Af Amer 86 mL/min >60 [facility] Work Phone: Comment on above: Non- GFR Calc Platelets bldon 03-02-2022 Platelets (Bld) [#/Vol] 221 10*3/uL 150-450 [facility] Work Phone: Serum or plasma albumin yayo urement (mass/volume)on 03-02-2022 Albumin [Mass/Vol] 3.7 g/dL 3.2-5.0 [facility] Work Phone: Serum or plasma albumin/glob ulin mass ratioon 03-02-2022 Albumin/Globulin [Mass ratio] 1.1 {ratio} 0.9-2.4 [facility] Work Phone: Serum or plasma calcium yayo urement (mass/volume)on 03-02-2022 Calcium [Mass/Vol] 8.5 mg/dL 8.5-10.1 [facility] Work Phone: Serum or plasma creatinine m easurement (mass/volume)on 03-02-2022 Creatinine [Mass/Vol] 0.94 mg/dL 0.70-1.30 [facility] Work Phone: Comment on above: The validity of the calculated GFR & GFRAA in patients over 70 years has not been determined. Clinical correlation is essential. Serum or plasma urea nitroge n measurement (mass/volume)on 03-02-2022 Urea nitrogen [Mass/Vol] 14 mg/dL 7-18 [facility] Work Phone: Thin prep Papanicolaou smear with manual screeningon 03-02-2022 Thin prep Papanicolaou smear with manual screening 8 U/L 15-37 [facility] Work Phone: Thin prep Papanicolaou smear with manual screening 7 5-15 [facility] Work Phone: [phone] Absolute lymphocyte counton 01-31-2022 Lymphocytes Auto (Unsp spec) [#/Vol] 1.83 10*3/uL 0.83-4.51 [facility] Work Phone: Basophil percentageon 2021 Basophils/100 WBC (Bld) 0.4 % 0-1 [facility] Work Phone: [phone] Bilirubin [Mass/Vol] 0.60 mg/dL 0.20-1.00 [facility] Work Phone: [phone] Comment on above: For patients on eltr ombopag therapy, use of Dimension [place] TBIL is not recommended. Chloride [Moles/Vol] 108 mmol/L 98-107 [facility] Work Phone: Eosinophils/100 WBC (Bld) 3.9 % 0-5 [facility] Work Phone: [phone] Glucose [Mass/Vol] 172 mg/dL 74-106 [facility] Work Phone: [phone] Comment on above: Fasting Glucose resu lt greater than or equal to 126 mg/dL suggests DIABETES MELLITUS per A.D.A. criteria. Neutrophils (Bld) [#/Vol] 5.6 10*3/uL 2.0-7.7 [facility] Work Phone: Neutrophils/100 WBC (Bld) 66.2 % 47-70 [facility] Work Phone: Potassium [Moles/Vol] 3.7 mmol/L 3.5-5.1 [facility] Work Phone: [phone] Protein [Mass/Vol] 7.0 g/dL 6.4-8.2 [facility] Work Phone: Sodium [Moles/Vol] 140 mmol/L 136-145 [facility] Work Phone: WBC (Bld) [#/Vol] 8.4 10*3/uL 4.4-11.0 [facility] Work Phone: Blood erythrocytes count (nu mber/volume)on 01-31-2022 RBC (Bld) [#/Vol] 5.07 10*6/uL 4.6-6.2 [facility] Work Phone: Blood hemoglobin measurement (mass/volume)on 01-31-2022 Hemoglobin (Bld) [Mass/Vol] 14.5 g/dL 13.0-16.5 [facility] Work Phone: Blood lymphocytes/100 leukoc yteson 01-31-2022 Lymphocytes/100 WBC (Bld) 21.8 % 19-41 [facility] Work Phone: Blood monocytes/100 leukocyt eson 01-31-2022 Monocytes/100 WBC (Bld) 7.3 % 0-10 [facility] Work Phone: Blood platelet mean volumeon 01-31-2022 Platelet mean volume (Bld) [Entitic vol] 9.1 fL 6.2-12.0 [facility] Work Phone: [phone] Determination of erythrocyte mean corpuscular volume (MCV)on 01-31-2022 MCV (RBC) [Entitic vol] 80.9 fL 80-94 [facility] Work Phone: Hematocrit Auto (Bld) [Volum e fraction]on 01-31-2022 Hematocrit (Bld) [Volume fraction] 41.0 % 40-54 [facility] Work Phone: [phone] Laboratory - Chemistry and C hemistry - challengeon 01-31-2022 ALP [Catalytic activity/Vol] 68 U/L 45-117 [facility] Work Phone: ALT [Catalytic activity/Vol] 14 U/L 16-61 [facility] Work Phone: CO2 [Moles/Vol] 26.0 mmol/L 21.0-32.0 [facility] Work Phone: Globulin (S) [Mass/Vol] 3.3 g/dL 2.2-4.2 [facility] Work Phone: Urea nitrogen/Creatinine [Mass ratio] 18.0 mg/mg 10-20 [facility] Work Phone: Laboratory - Hematology and Cell countson 01-31-2022 Erythrocyte distribution width (RBC) [Entitic vol] 39.8 fL 35.1-43.9 [facility] Work Phone: Erythrocyte distribution width (RBC) [Ratio] 13.8 % 11.6-14.6 [facility] Work Phone: Immature granulocytes/100 WBC (Bld) 0.400 % 0.0-0.9 [facility] Work Phone: Comment on above: IG% - Immature Granu locytes (promyelocytes, myelocytes and metamyelocytes) > 1% indicates that a LEFT SHIFT is Present. MCH (RBC) [Entitic mass] 28.6 pg 27.0-32.0 [facility] Work Phone: Nucleated RBC/100 WBC (Bld) [Ratio] 0 % 0-5 [facility] Work Phone: MCHC Auto (RBC) [Mass/Vol]on 01-31-2022 MCHC (RBC) [Mass/Vol] 35.4 g/dL 32-36 [facility] Work Phone: No Panel Informationon 01-31 Estimated Creatinine Clearance Calc 125.34 ml/min [facility] Work Phone: Estimated GFR (MDRD) Amer 131 mL/min >60 [facility] Work Phone: Comment on above: GFR Calc Estimated GFR (MDRD) Non-Af Amer 108 mL/min >60 [facility] Work Phone: Comment on above: Non- GFR Calc Platelets bldon 01-31-2022 Platelets (Bld) [#/Vol] 222 10*3/uL 150-450 [facility] Work Phone: Serum or plasma albumin yayo urement (mass/volume)on 01-31-2022 Albumin [Mass/Vol] 3.7 g/dL 3.2-5.0 [facility] Work Phone: [phone] Serum or plasma albumin/glob ulin mass ratioon 01-31-2022 Albumin/Globulin [Mass ratio] 1.1 {ratio} 0.9-2.4 [facility] Work Phone: [phone] Serum or plasma calcium yayo urement (mass/volume)on 01-31-2022 Calcium [Mass/Vol] 8.4 mg/dL 8.5-10.1 [facility] Work Phone: Serum or plasma creatinine m easurement (mass/volume)on 01-31-2022 Creatinine [Mass/Vol] 0.78 mg/dL 0.70-1.30 [facility] Work Phone: Comment on above: The validity of the calculated GFR & GFRAA in patients over 70 years has not been determined. Clinical correlation is essential. Serum or plasma urea nitroge n measurement (mass/volume)on 01-31-2022 Urea nitrogen [Mass/Vol] 14 mg/dL 7-18 [facility] Work Phone: Thin prep Papanicolaou smear with manual screeningon 01-31-2022 Thin prep Papanicolaou smear with manual screening 13 U/L 15-37 [facility] Work Phone: Thin prep Papanicolaou smear with manual screening 6 5-15 [facility] Work Phone: Absolute lymphocyte counton 01-08-2022 Lymphocytes Auto (Unsp spec) [#/Vol] 1.33 10*3/uL 0.83-4.51 [facility] Work Phone: Basophil percentageon 2021 Basophils/100 WBC (Bld) 0.3 % 0-1 [facility] Work Phone: [phone] Bilirubin [Mass/Vol] 0.60 mg/dL 0.20-1.00 [facility] Work Phone: [phone] Comment on above: For patients on eltr ombopag therapy, use of [employer] [place] TBIL is not recommended. Chloride [Moles/Vol] 104 mmol/L 98-107 [facility] Work Phone: Eosinophils/100 WBC (Bld) 0.5 % 0-5 [facility] Work Phone: Glucose [Mass/Vol] 294 mg/dL 74-106 [facility] Work Phone: Comment on above: Glucose result great er than or equal to 200 mg/dLsuggests DIABETES MELLITUS per A.D.A. criteria. Neutrophils (Bld) [#/Vol] 8.1 10*3/uL 2.0-7.7 [facility] Work Phone: Neutrophils/100 WBC (Bld) 80.9 % 47-70 [facility] Work Phone: Potassium [Moles/Vol] 3.6 mmol/L 3.5-5.1 [facility] Work Phone: Protein [Mass/Vol] 7.6 g/dL 6.4-8.2 [facility] Work Phone: Sodium [Moles/Vol] 135 mmol/L 136-145 [facility] Work Phone: WBC (Bld) [#/Vol] 10.0 10*3/uL 4.4-11.0 [facility] Work Phone: Blood erythrocytes count (nu mber/volume)on 01-08-2022 RBC (Bld) [#/Vol] 5.06 10*6/uL 4.6-6.2 [facility] Work Phone: Blood hemoglobin measurement (mass/volume)on 01-08-2022 Hemoglobin (Bld) [Mass/Vol] 14.6 g/dL 13.0-16.5 [facility] Work Phone: Blood lymphocytes/100 leukoc yteson 01-08-2022 Lymphocytes/100 WBC (Bld) 13.4 % 19-41 [facility] Work Phone: Blood monocytes/100 leukocyt eson 01-08-2022 Monocytes/100 WBC (Bld) 4.4 % 0-10 [facility] Work Phone: Blood platelet mean volumeon 01-08-2022 Platelet mean volume (Bld) [Entitic vol] 9.2 fL 6.2-12.0 [facility] Work Phone: Determination of erythrocyte mean corpuscular volume (MCV)on 01-08-2022 MCV (RBC) [Entitic vol] 81.0 fL 80-94 [facility] Work Phone: Hematocrit Auto (Bld) [Volum e fraction]on 01-08-2022 Hematocrit (Bld) [Volume fraction] 41.0 % 40-54 [facility] Work Phone: [phone] Laboratory - Chemistry and C hemistry - challengeon 01-08-2022 ALP [Catalytic activity/Vol] 79 U/L 45-117 [facility] Work Phone: ALT [Catalytic activity/Vol] 16 U/L 16-61 [facility] Work Phone: [phone] CO2 [Moles/Vol] 25.0 mmol/L 21.0-32.0 [facility] Work Phone: [phone] Globulin (S) [Mass/Vol] 3.6 g/dL 2.2-4.2 [facility] Work Phone: Urea nitrogen/Creatinine [Mass ratio] 16.8 mg/mg 10-20 [facility] Work Phone: [phone] Laboratory - Hematology and Cell countson 01-08-2022 Erythrocyte distribution width (RBC) [Entitic vol] 40.0 fL 35.1-43.9 [facility] Work Phone: [phone] Erythrocyte distribution width (RBC) [Ratio] 13.9 % 11.6-14.6 [facility] Work Phone: Immature granulocytes/100 WBC (Bld) 0.500 % 0.0-0.9 [facility] Work Phone: Comment on above: IG% - Immature Granu locytes (promyelocytes, myelocytes and metamyelocytes) > 1% indicates that a LEFT SHIFT is Present. MCH (RBC) [Entitic mass] 28.9 pg 27.0-32.0 [facility] Work Phone: Nucleated RBC/100 WBC (Bld) [Ratio] 0 % 0-5 [facility] Work Phone: MCHC Auto (RBC) [Mass/Vol]on 01-08-2022 MCHC (RBC) [Mass/Vol] 35.6 g/dL 32-36 [facility] Work Phone: No Panel Informationon 01-08 Estimated Creatinine Clearance Calc 96.79 ml/min [facility] Work Phone: Estimated GFR (MDRD) Amer 96 mL/min >60 [facility] Work Phone: Comment on above: GFR Calc Estimated GFR (MDRD) Non-Af Amer 80 mL/min >60 [facility] Work Phone: Comment on above: Non- GFR Calc Platelets bldon 01-08-2022 Platelets (Bld) [#/Vol] 228 10*3/uL 150-450 [facility] Work Phone: Serum or plasma albumin yayo urement (mass/volume)on 01-08-2022 Albumin [Mass/Vol] 4.0 g/dL 3.2-5.0 [facility] Work Phone: Serum or plasma albumin/glob ulin mass ratioon 01-08-2022 Albumin/Globulin [Mass ratio] 1.1 {ratio} 0.9-2.4 [facility] Work Phone: Serum or plasma calcium yayo urement (mass/volume)on 01-08-2022 Calcium [Mass/Vol] 9.3 mg/dL 8.5-10.1 [facility] Work Phone: Serum or plasma creatinine m easurement (mass/volume)on 01-08-2022 Creatinine [Mass/Vol] 1.01 mg/dL 0.70-1.30 [facility] Work Phone: Comment on above: The validity of the calculated GFR & GFRAA in patients over 70 years has not been determined. Clinical correlation is essential. Serum or plasma urea nitroge n measurement (mass/volume)on 01-08-2022 Urea nitrogen [Mass/Vol] 17 mg/dL 7-18 [facility] Work Phone: Thin prep Papanicolaou smear with manual screeningon 01-08-2022 Thin prep Papanicolaou smear with manual screening 8 U/L 15-37 [facility] Work Phone: Thin prep Papanicolaou smear with manual screening 6 5-15 [facility] Work Phone: Absolute lymphocyte counton 01-07-2022 Lymphocytes Auto (Unsp spec) [#/Vol] 2.13 10*3/uL 0.83-4.51 [facility] Work Phone: Basophil percentageon 2021 Basophils/100 WBC (Bld) 0.3 % 0-1 [facility] Work Phone: Bilirubin [Mass/Vol] 0.60 mg/dL 0.20-1.00 [facility] Work Phone: Comment on above: For patients on eltr ombopag therapy, use of [employer] [place] TBIL is not recommended. Chloride [Moles/Vol] 107 mmol/L 98-107 [facility] Work Phone: Eosinophils/100 WBC (Bld) 2.7 % 0-5 [facility] Work Phone: Glucose [Mass/Vol] 150 mg/dL 74-106 [facility] Work Phone: Comment on above: Fasting Glucose resu lt greater than or equal to 126 mg/dL suggests DIABETES MELLITUS per A.D.A. criteria. Neutrophils (Bld) [#/Vol] 3.5 10*3/uL 2.0-7.7 [facility] Work Phone: Neutrophils/100 WBC (Bld) 55.6 % 47-70 [facility] Work Phone: Potassium [Moles/Vol] 3.4 mmol/L 3.5-5.1 [facility] Work Phone: Protein [Mass/Vol] 6.3 g/dL 6.4-8.2 [facility] Work Phone: Sodium [Moles/Vol] 139 mmol/L 136-145 [facility] Work Phone: WBC (Bld) [#/Vol] 6.3 10*3/uL 4.4-11.0 [facility] Work Phone: Blood erythrocytes count (nu mber/volume)on 01-07-2022 RBC (Bld) [#/Vol] 4.65 10*6/uL 4.6-6.[facility]: Blood hemoglobin measurement (mass/volume)on 01-07-2022 Hemoglobin (Bld) [Mass/Vol] 13.5 g/dL 13.0-16.5 [facility] Work Phone: Blood lymphocytes/100 leukoc yteson 01-07-2022 Lymphocytes/100 WBC (Bld) 33.9 % 19-41 [facility] Work Phone: Blood monocytes/100 leukocyt eson 01-07-2022 Monocytes/100 WBC (Bld) 7.2 % 0-10 [facility] Work Phone: Blood platelet mean volumeon 01-07-2022 Platelet mean volume (Bld) [Entitic vol] 9.4 fL 6.2-12.0 [facility] Work Phone: Determination of erythrocyte mean corpuscular volume (MCV)on 01-07-2022 MCV (RBC) [Entitic vol] 82.2 fL 80-94 [facility] Work Phone: Glucose Glucometer (BldC) [M ass/Vol]on 01-07-2022 Glucose [Mass/Vol] 161 mg/dL 74-106 [facility] Work Phone: Comment on above: MANAGEMENT OF PATIEN T CARE PER NURSING PROTOCOL Hematocrit Auto (Bld) [Volum e fraction]on 01-07-2022 Hematocrit (Bld) [Volume fraction] 38.2 % 40-54 [facility] Work Phone: Laboratory - Chemistry and C hemistry - challengeon 01-07-2022 ALP [Catalytic activity/Vol] 64 U/L 45-117 [facility] Work Phone: ALT [Catalytic activity/Vol] 11 U/L 16-61 [facility] Work Phone: CO2 [Moles/Vol] 27.0 mmol/L 21.0-32.0 [facility] Work Phone: Globulin (S) [Mass/Vol] 3.1 g/dL 2.2-4.2 [facility] Work Phone: Urea nitrogen/Creatinine [Mass ratio] 12.9 mg/mg 10-20 [facility] Work Phone: Laboratory - Hematology and Cell countson 01-07-2022 Erythrocyte distribution width (RBC) [Entitic vol] 40.8 fL 35.1-43.9 [facility] Work Phone: Erythrocyte distribution width (RBC) [Ratio] 13.9 % 11.6-14.6 [facility] Work Phone: Immature granulocytes/100 WBC (Bld) 0.300 % 0.0-0.9 [facility] Work Phone: Comment on above: IG% - Immature Granu locytes (promyelocytes, myelocytes and metamyelocytes) > 1% indicates that a LEFT SHIFT is Present. MCH (RBC) [Entitic mass] 29.0 pg 27.0-32.0 [facility] Work Phone: Nucleated RBC/100 WBC (Bld) [Ratio] 0 % 0-5 [facility] Work Phone: MCHC Auto (RBC) [Mass/Vol]on 01-07-2022 MCHC (RBC) [Mass/Vol] 35.3 g/dL 32-36 [facility] Work Phone: No Panel Informationon 01-07 Estimated Creatinine Clearance Calc 139.66 ml/min [facility] Work Phone: Estimated GFR (MDRD) Amer 148 mL/min >60 [facility] Work Phone: Comment on above: GFR Calc Estimated GFR (MDRD) Non-Af Amer 123 mL/min >60 [facility] Work Phone: Comment on above: Non- GFR Calc Platelets bldon 01-07-2022 Platelets (Bld) [#/Vol] 208 10*3/uL 150-450 [facility] Work Phone: Serum or plasma albumin yayo urement (mass/volume)on 01-07-2022 Albumin [Mass/Vol] 3.2 g/dL 3.2-5.0 [facility] Work Phone: Serum or plasma albumin/glob ulin mass ratioon 01-07-2022 Albumin/Globulin [Mass ratio] 1.0 {ratio} 0.9-2.4 [facility] Work Phone: Serum or plasma calcium yayo urement (mass/volume)on 01-07-2022 Calcium [Mass/Vol] 8.4 mg/dL 8.5-10.1 [facility] Work Phone: Serum or plasma creatinine m easurement (mass/volume)on 01-07-2022 Creatinine [Mass/Vol] 0.70 mg/dL 0.70-1.30 [facility] Work Phone: Comment on above: The validity of the calculated GFR & GFRAA in patients over 70 years has not been determined. Clinical correlation is essential. Serum or plasma urea nitroge n measurement (mass/volume)on 01-07-2022 Urea nitrogen [Mass/Vol] 9 mg/dL 7-18 [facility] Work Phone: Thin prep Papanicolaou smear with manual screeningon 01-07-2022 Thin prep Papanicolaou smear with manual screening 8 U/L 15-37 [facility] Work Phone: Thin prep Papanicolaou smear with manual screening 5 5-15 [facility] Work Phone: Erythrocyte sedimentation ra mau 01-05-2022 ESR (Bld) [Velocity] 4 mm/h 0-20 [facility] Work Phone: Serum or plasma C reactive p rotein measurement (mass/volume)on 01-05-2022 CRP [Mass/Vol] mg/L 0.0-3.0 [facility] Work Phone: Comment on above: C-Reactive Protein ( CRP) provides useful information for thediagnosis, therapy and monitoring of inflammatory processesand associated diseases. For the evaluation of Relative Riskfor Cardiovascular Disease, a High Sensitivity CRP (HSCRP)should be ordered. Thin prep Papanicolaou smear with manual screeningon 01-05-2022 Thin prep Papanicolaou smear with manual screening 192 U/L 87-241 [facility] Work Phone: Basophil percentageon 2021 Basophil percentage 0 SEEN /hpf 0-5 [facility] Work Phone: Lactate [Moles/Vol] 1.1 mmol/L 0.4-2.0 [facility] Work Phone: Bilirubin Test strip Ql (U)o n 01-04-2022 Bilirubin Ql (U) Negative Negative [facility] Work Phone: Ketones Test strip Ql (U)on 01-04-2022 Ketones Ql (U) 50 mg/dl Negative [facility] Work Phone: Laboratory - Chemistry and C hemistry - challengeon 01-04-2022 Lipase [Catalytic activity/Vol] 38 U/L 73-393 [facility] Work Phone: Mucus LM Ql (Urine sed)on Mucus Ql (Urine sed) 0 SEEN /hpf [facility] Work Phone: Nitrite Test strip Ql (U)on 01-04-2022 Nitrite Ql (U) Negative Negative [facility] Work Phone: Protein Test strip Ql (U)on 01-04-2022 Protein Ql (U) 15 mg/dl Negative [facility] Work Phone: Squamous epithelial cells de tection in urine sediment by light microscopyon 01-04-2022 Epithelial cells.squamous LM Ql (Urine sed) 0 SEEN /hpf 0-5 [facility] Work Phone: Urine blood detectionon RBC Ql (U) Negative Negative [facility] Work Phone: RBC Ql (U) 0 SEEN /hpf 0-5 [facility] Work Phone: Urine clarityon 01-04-2022 Clarity (U) Clear Clear [facility] Work Phone: Urine color determinationon 01-04-2022 Color (U) Yellow Yellow [facility] Work Phone: Urine glucose detectionon Glucose Ql (U) 1000 mg/dl Normal [facility] Work Phone: Urine leukocyte esterase det ection by dipstickon 01-04-2022 Leukocyte esterase Test strip Ql (U) Negative Negative [facility] Work Phone: Urine pHon 01-04-2022 pH (U) 5.0 [pH] 5.0 - 8.0 [facility] Work Phone: Urine sediment bacteria coun t by microscopy (number/high power field)on 01-04-2022 Bacteria LM.HPF (Urine sed) [#/Area] 0 /[HPF] None Seen [facility] Work Phone: Urine specific gravity measu rementon 01-04-2022 Specific gravity (U) [Rel density] 1.010 1.002-1.030 [facility] Work Phone: Urobilinogen Auto test strip Ql (U)on 01-04-2022 Urobilinogen Ql (U) Normal mg/dl Normal [facility] Work Phone: Basophil percentageon 2021 [facility] Work Phone: Comment on above: Test not performedhe molysis present redraw for k if indicatedPrevious reported result: TNP mmol/LEdited by: VEL on 11/12/21:2009 Chloride [Moles/Vol] 102 mmol/L 98-107 [facility] Work Phone: Glucose [Mass/Vol] 326 mg/dL 74-106 [facility] Work Phone: Comment on above: Glucose result great er than or equal to 200 mg/dLsuggests DIABETES MELLITUS per A.D.A. criteria. Sodium [Moles/Vol] 135 mmol/L 136-145 [facility] Work Phone: Glucose Glucometer (BldC) [M ass/Vol]on 11-12-2021 Glucose [Mass/Vol] 324 mg/dL 70-110 [facility] Work Phone: Comment on above: MANAGEMENT OF PATIEN T CARE PER NURSING PROTOCOL Laboratory - Chemistry and C hemistry - challengeon 11-12-2021 CO2 [Moles/Vol] 26.0 mmol/L 21.0-32.0 [facility] Work Phone: Urea nitrogen/Creatinine [Mass ratio] 13.4 mg/mg 10-20 [facility] Work Phone: No Panel Informationon 11-12 Estimated Creatinine Clearance Calc 119.22 ml/min [facility] Work Phone: Estimated GFR (MDRD) Amer 122 mL/min >60 [facility] Work Phone: Comment on above: GFR Calc Estimated GFR (MDRD) Non-Af Amer 101 mL/min >60 [facility] Work Phone: Comment on above: Non- GFR Calc Serum or plasma calcium yayo urement (mass/volume)on 11-12-2021 Calcium [Mass/Vol] 8.6 mg/dL 8.5-10.1 [facility] Work Phone: Serum or plasma creatinine m easurement (mass/volume)on 11-12-2021 Creatinine [Mass/Vol] 0.82 mg/dL 0.70-1.30 [facility] Work Phone: Comment on above: The validity of the calculated GFR & GFRAA in patients over 70 years has not been determined. Clinical correlation is essential. Serum or plasma urea nitroge n measurement (mass/volume)on 11-12-2021 Urea nitrogen [Mass/Vol] 11 mg/dL 7-18 [facility] Work Phone: Thin prep Papanicolaou smear with manual screeningon 11-12-2021 Thin prep Papanicolaou smear with manual screening 7 5-15 [facility] Work Phone: Glucose,Bedsideon 10-07-2019 Glucose [Mass/Vol] 240 mg/dL High 70-100 [facility] Comment on above: Result Comment: Test performed by glucose meter. Results may be 10%-15% lower than serum/plasma values. (CLIA ID [id number]) Performed By: #### B MP3, HEMDF #### [address] [address] [place] [address] POCT Glucoseon 10-07-2019 Glucose [Mass/Vol] 240 mg/dL High 70 - 100 mg/dL [place], [place] Comment on above: Test performed by gl ucose meter. Results may be 10%-15% lower than serum/plasma values. (CLIA ID [id number]) Interpretation and review of laboratory results Abnormal [place], [place] Test Performed by [facility] [place] [address] [place], [place] Basic Metabolic Panelon 12-0 Anion gap [Moles/Vol] 7 Normal [facility] Comment on above: Performed By: #### H EMDF, BMP3M, MG3 #### [address] [address] [place], [place] Calcium [Mass/Vol] 9.0 mg/dL Normal 8.4-10.4 [facility] Comment on above: Performed By: #### H EMDF, BMP3M, MG3 #### [address] [address] [place], [place] CO2 [Moles/Vol] 28 mmol/L Normal 22-30 [facility] Comment on above: Performed By: #### H EMDF, BMP3M, MG3 #### [address] [address] [place], [place] Creatinine [Mass/Vol] 0.73 mg/dL Normal 0.52-1.25 [facility] Comment on above: Performed By: #### H EMDF, BMP3M, MG3 #### [address] [place] [address] GFR/1.73 sq M predicted among blacks MDRD (S/P/Bld) [Vol rate/Area] mL/min/{1.73_m2} Normal >60 [facility] Comment on above: Performed By: #### H EMDF, BMP3M, MG3 #### [address] [address] [place], [place] GFR/1.73 sq M predicted among non-blacks MDRD (S/P/Bld) [Vol rate/Area] mL/min/{1.73_m2} Normal >60 [facility] Comment on above: Result Comment: Sour ce- MDRD equation with creatinine calibration to IDMS(NKDEP) eGFR not recommended for drug dose adjustment Performed By: #### H EMDF, BMP3M, MG3 #### [address] [address] [place] [address] Glucose [Mass/Vol] 194 mg/dL High 70-100 [facility] Comment on above: Performed By: #### H EMDF, BMP3M, MG3 #### [address] [address] [place] [address] Urea nitrogen [Mass/Vol] 10 mg/dL Normal 7-20 [facility] Comment on above: Performed By: #### H EMDF, BMP3M, MG3 #### [facility] [address] [place] [address] Chloride [Moles/Vol] 105 mmol/L Normal 98-107 [facility] Comment on above: Performed By: #### H EMDF, BMP3M, MG3 #### [facility] [address] [place], [place] Potassium [Moles/Vol] 3.4 mmol/L Low 3.5-5.1 [facility] Comment on above: Performed By: #### H EMDF, BMP3M, MG3 #### [facility] [address] [place] [address] Sodium [Moles/Vol] 140 mmol/L Normal 135-145 [facility] Comment on above: Performed By: #### H EMDF, BMP3M, MG3 #### [facility] [address] [place], [place] Basic Metabolic Panel w/ Ref pietro to MGon 10-06-2019 Anion gap [Moles/Vol] 7 mmol/L [place], [place] Calcium [Mass/Vol] 9.0 mg/dL 8.4 - 10. 4 mg/dL [place] Chloride [Moles/Vol] 105 mmol/L 98 - 10 7 mmol/L [place] CO2 [Moles/Vol] 28 mmol/L 22 - 30 mmol/L [place] Creatinine [Mass/Vol] 0.73 mg/dL 0.52 - 1.25 mg/dL [place] EGFR IF NonAfrican Vietnamese >60.0 >60 mL/min [place] Comment on above: Source- MDRD equatio n with creatinine calibration to IDMS(NKDEP) eGFR not recommended for drug dose adjustment GFR/1.73 sq M predicted among blacks MDRD (S/P/Bld) [Vol rate/Area] mL/min/{1.73_m2} >60 mL/min [place] Glucose [Mass/Vol] 194 mg/dL High 70 - 100 mg/dL [place] Potassium [Moles/Vol] 3.4 mmol/L Low 3.5 - 5.1 mmol/L [place] Sodium [Moles/Vol] 140 mmol/L 135 - 145 mmol/L [place] Urea nitrogen [Mass/Vol] 10 mg/dL 7 - 20 mg/dL [place] CBC auto differentialon 12-0 Absolute Baso # 0.1 10*3/uL 0 - 0.2 10*3/uL [place] Absolute Neut # 4.4 10*3/uL 1.8 - 7 10*3/uL [place] Basophils/100 WBC (Bld) 0.8 % 0 - 2 % [place], [place] Eosinophils (Bld) [#/Vol] 0.2 10*3/uL 0 - 0.5 10*3/uL [place] Eosinophils/100 WBC (Bld) 2.8 % 1 - 6 % [place] Erythrocyte distribution width (RBC) [Ratio] 13.7 % 11.5 - 14.5 % [place] Granulocytes/100 WBC (Bld) 60.0 % 40 - 80 % [place] Hematocrit (Bld) [Volume fraction] 44.1 % 40 - 52 % [place] Hemoglobin (Bld) [Mass/Vol] 15.5 g/dL 13 - 18 g/dL [place] Lymphocytes (Bld) [#/Vol] 2.3 10*3/uL 1 - 4.3 10*3/uL [place] Lymphocytes/100 WBC (Bld) 30.7 % 20 - 40 % [place] MCH (RBC) [Entitic mass] 29.2 pg 26 - 34 pg [place] MCHC (RBC) [Mass/Vol] 35.2 % 32 - 36 % [place] MCV (RBC) [Entitic vol] 82.9 fL 80 - 98 fL [place], [place] Monocytes (Bld) [#/Vol] 0.4 10*3/uL 0 - 0.8 10*3/uL [place] Monocytes/100 WBC (Bld) 5.7 % 2 - 10 % [place] Platelet mean volume (Bld) [Entitic vol] 7.5 fL 7.4 - 10.4 fL [place] Platelets (Bld) [#/Vol] 196 10*3/uL 140 - 440 10*3/uL [place] RBC (Bld) [#/Vol] 5.32 10*6/uL 4.4 - 5.9 10*6/uL [place] WBC (Bld) [#/Vol] 7.4 10*3/uL 3.6 - 10.7 10*3/uL [place] Test Performed by [facility], [address] [place] [address] [place], [place] Glucose,Bedsideon 10-06-2019 Glucose [Mass/Vol] 257 mg/dL [address] Comment on above: Result Comment: Test performed by glucose meter. Results may be 10%-15% lower than serum/plasma values. (CLIA ID [id number]) Performed By: #### B MP3, HEMDF #### [address] [address] [place] [address] Glucose [Mass/Vol] 288 mg/dL [address] Comment on above: Result Comment: Test performed by glucose meter. Results may be 10%-15% lower than serum/plasma values. (CLIA ID [id number]) Performed By: #### B MP3, HEMDF #### [address] [place] [address] Glucose [Mass/Vol] 198 mg/dL High [address] Comment on above: Result Comment: Test performed by glucose meter. Results may be 10%-15% lower than serum/plasma values. (CLIA ID [id number]) Performed By: #### B GLU #### [facility] [address] [place] [address] Glucose [Mass/Vol] 226 mg/dL High [address] Comment on above: Result Comment: Test performed by glucose meter. Results may be 10%-15% lower than serum/plasma values. (CLIA ID [id number]) Performed By: #### B GLU #### [address] [address] [place], [place] Glucose [Mass/Vol] 207 mg/dL High 70-100 [facility] Comment on above: Result Comment: Test performed by glucose meter. Results may be 10%-15% lower than serum/plasma values. (CLIA ID [id number]) Performed By: #### B GLU #### [address] [address] [place], [place] Glucose [Mass/Vol] 200 mg/dL High 70-100 [facility] Comment on above: Result Comment: Test performed by glucose meter. Results may be 10%-15% lower than serum/plasma values. (CLIA ID [id number]) Performed By: #### B GLU #### [address] [address] [place], [place] Hemogram w/ [employer] 10-06 Abs Baso Cnt 0.1 10*3/uL Normal 0.0-0.2 [facility] Comment on above: Performed By: #### H EMDF, BMP3M, MG3 #### [place] [address] [place], [place] Abs Neutrophile Cnt 4.4 10*3/uL Normal 1.8-7.0 [facility] Comment on above: Performed By: #### H EMDF, BMP3M, MG3 #### [place] [address] [place] Basophils/100 WBC (Bld) 0.8 % Normal 0.0-2.0 S [facility] Comment on above: Performed By: #### H EMDF, BMP3M, MG3 #### [address] Eosinophils (Bld) [#/Vol] 0.2 10*3/uL Normal 0.0-0.5 [facility] Comment on above: Performed By: #### H EMDF, BMP3M, MG3 #### [address] Eosinophils/100 WBC (Bld) 2.8 % Normal 1.0-6.0 [facility] Comment on above: Performed By: #### H EMDF, BMP3M, MG3 #### [address] Erythrocyte distribution width (RBC) [Ratio] 13.7 % Normal 11.5-14.5 [facility] Comment on above: Performed By: #### H EMDF, BMP3M, MG3 #### [address] Granulocytes/100 WBC (Bld) 60.0 % Normal 40.0-80.0 [facility] Comment on above: Performed By: #### H EMDF, BMP3M, MG3 #### [address] Hematocrit (Bld) [Volume fraction] 44.1 % Normal 40.0-52.0 [facility] Comment on above: Performed By: #### H EMDF, BMP3M, MG3 #### [address] Hemoglobin (Bld) [Mass/Vol] 15.5 g/dL Normal 13.0-18.0 [facility] Comment on above: Performed By: #### H EMDF, BMP3M, MG3 #### [address] Lymphocytes (Bld) [#/Vol] 2.3 10*3/uL Normal 1.0-4.3 [facility] Comment on above: Performed By: #### H EMDF, BMP3M, MG3 #### [address] Lymphocytes/100 WBC (Bld) 30.7 % Normal 20.0-40.0 [facility] Comment on above: Performed By: #### H EMDF, BMP3M, MG3 #### [address] MCH (RBC) [Entitic mass] 29.2 pg Normal 26.0-34.0 [facility] Comment on above: Performed By: #### H EMDF, BMP3M, MG3 #### [address] [place] [address] [place], [place] MCHC (RBC) [Mass/Vol] 35.2 % Normal 32.0-36.0 [facility] Comment on above: Performed By: #### H EMDF, BMP3M, MG3 #### [address] [place] [address] [place], [place] MCV (RBC) [Entitic vol] 82.9 fL Normal 80.0-98.0 S [facility] Comment on above: Performed By: #### H EMDF, BMP3M, MG3 #### [address] [address] [place] Monocytes (Bld) [#/Vol] 0.4 10*3/uL Normal 0.0-0.8 [facility] Comment on above: Performed By: #### H EMDF, BMP3M, MG3 #### [address] [place] [address] [place], [place] Monocytes/100 WBC (Bld) 5.7 % Normal 2.0-10.0 S [facility] Comment on above: Performed By: #### H EMDF, BMP3M, MG3 #### [address] [place] [address] [place] Platelet mean volume (Bld) [Entitic vol] 7.5 fL Normal 7.4-10.4 [facility] Comment on above: Performed By: #### H EMDF, BMP3M, MG3 #### [address] [address] [place], [place] Platelets (Bld) [#/Vol] 196 10*3/uL Normal 140-440 [facility] Comment on above: Performed By: #### H EMDF, BMP3M, MG3 #### [address] [place] [address] [place] RBC (Bld) [#/Vol] 5.32 10*6/uL Normal 4.40-5.90 [facility] Comment on above: Performed By: #### H EMDF, BMP3M, MG3 #### [facility] [address] [place] [address] WBC (Bld) [#/Vol] 7.4 10*3/uL Normal 3.6-10.7 [facility] Comment on above: Performed By: #### H EMDF, BMP3M, MG3 #### [facility] [address] [place] [address] Magnesiumon 10-06-2019 Magnesium [Mass/Vol] 1.5 mg/dL Low 1.6-2.3 [facility] Comment on above: Performed By: #### H EMDF, BMP3M, MG3 #### [facility] [address] [place] [address] Magnesium [Mass/Vol] 1.5 mg/dL Low 1.6 - 2 .3 mg/dL [place], [place] Otheron 10-06-2019 Interpretation and review of laboratory results Abnormal [employer] [place] Test Performed by [facility], [place] [address] [place], [place] POCT Glucoseon 10-06-2019 Glucose [Mass/Vol] 257 mg/dL High 70 - 100 mg/dL [place], [place] Comment on above: Test performed by gl ucose meter. Results may be 10%-15% lower than serum/plasma values. (CLIA ID [id number]) Interpretation and review of laboratory results Abnormal [employer] Test Performed by [facility], [facility] [place] [address] [place], [place] Glucose [Mass/Vol] 288 mg/dL High 70 - 100 mg/dL [place] Comment on above: Test performed by gl ucose meter. Results may be 10%-15% lower than serum/plasma values. (CLIA ID [id number]) Interpretation and review of laboratory results Abnormal [employer], [place] Test Performed by [facility], [facility] [place] [address] [place], [place] Glucose [Mass/Vol] 198 mg/dL High 70 - 100 mg/dL [facility] [place] Comment on above: Test performed by gl ucose meter. Results may be 10%-15% lower than serum/plasma values. (CLIA ID [id number]) Interpretation and review of laboratory results Abnormal [facility] [place] Test Performed by [employer] [facility], [facility] [place] [address] [facility] [place] Glucose [Mass/Vol] 226 mg/dL High 70 - 100 mg/dL [facility] [place] Comment on above: Test performed by gl ucose meter. Results may be 10%-15% lower than serum/plasma values. (CLIA ID [id number]) Interpretation and review of laboratory results Abnormal [facility] [place] Test Performed by [employer] [facility], [facility] [place] [address] [facility] [place] Glucose [Mass/Vol] 207 mg/dL High 70 - 100 mg/dL [facility] [place] Comment on above: Test performed by gl ucose meter. Results may be 10%-15% lower than serum/plasma values. (CLIA ID [id number]) Interpretation and review of laboratory results Abnormal [facility] [place] Test Performed by [employer] [facility], [place] [address] [facility] [place] Glucose [Mass/Vol] 200 mg/dL High 70 - 100 mg/dL [facility] [place] Comment on above: Test performed by gl ucose meter. Results may be 10%-15% lower than serum/plasma values. (CLIA ID [id number]) Interpretation and review of laboratory results Abnormal [facility] [place] Test Performed by [employer] [facility], [address] [place] [address] [facility] [place] Surgical Pathologyon 019 Surgical Pathology [id number] [facility] PATHOLOGY AND LABORATORY MEDICINE [address] [place] [address] FINAL SURGICAL PATHOLOGY REPORT ___ NAME: JERALD YODER : 1960 59 Y Sunny ZAMUDIO NO.: [id number] LOCATION: I [id number] 01 PROCEDURE 10/06/2019 DATE: SURGEON: BECCA [...] characteristics determined by the clinical laboratories of [facility] [employer] [facility]. They have not been cleared by [...] negativity on decalcified specimens. Professional Performing Location: [address] [address]. DEPARTMENT OF PATHOLOGY AND LABORATORY MEDICINE [place], [place] Normal [facility] Basic Metabolic Panelon 12-0 Anion gap [Moles/Vol] 9 Normal [facility] Comment on above: Performed By: #### B MP3, HEMDF #### [address] Calcium [Mass/Vol] 9.3 mg/dL Normal 8.4-10.4 [facility] Comment on above: Performed By: #### B MP3, HEMDF #### [address] CO2 [Moles/Vol] 24 mmol/L Normal 22-30 [facility] Comment on above: Performed By: #### B MP3, HEMDF #### [address] Glucose [Mass/Vol] 317 mg/dL High 70-100 [facility] Comment on above: Performed By: #### B MP3, HEMDF #### [address] Urea nitrogen [Mass/Vol] 11 mg/dL Normal 7-20 [facility] Comment on above: Performed By: #### B MP3, HEMDF #### [address] Creatinine [Mass/Vol] 0.71 mg/dL Normal 0.52-1.25 [facility] Comment on above: Performed By: #### B MP3, HEMDF #### [address] GFR/1.73 sq M predicted among blacks MDRD (S/P/Bld) [Vol rate/Area] mL/min/{1.73_m2} Normal >60 [facility] Comment on above: Performed By: #### B CHRISTIAN3, HEMDF #### [address] [place] [address] [place], [place] GFR/1.73 sq M predicted among non-blacks MDRD (S/P/Bld) [Vol rate/Area] mL/min/{1.73_m2} Normal >60 [facility] Comment on above: Result Comment: Sour ce- MDRD equation with creatinine calibration to IDMS(NKDEP) eGFR not recommended for drug dose adjustment Performed By: #### Kathi BERUMEN, HEMDF #### [address] [place] [address] [place], [place] Chloride [Moles/Vol] 104 mmol/L Normal 98-107 [facility] Comment on above: Performed By: #### Kathi BERUMEN, HEMDF #### [address] [place] [address] [place], [place] Potassium [Moles/Vol] 4.1 mmol/L Normal 3.5-5.1 [facility] Comment on above: Performed By: #### Kathi BERUMEN, HEMDF #### [address] [place] [address] [place], [place] Sodium [Moles/Vol] 137 mmol/L Normal 135-145 [facility] Comment on above: Performed By: #### Kathi BERUMEN, HEMDF #### [address] [place] [address] [place], [place] Anion gap [Moles/Vol] 9 mmol/L [facility], [place] Calcium [Mass/Vol] 9.3 mg/dL 8.4 - 10. 4 mg/dL [facility], [place] Chloride [Moles/Vol] 104 mmol/L 98 - 10 7 mmol/L [facility], [place] CO2 [Moles/Vol] 24 mmol/L 22 - 30 mmol/L [facility], [place] Creatinine [Mass/Vol] 0.71 mg/dL 0.52 - 1.25 mg/dL [facility], [place] EGFR IF NonAfrican Vietnamese >60.0 >60 mL/min [place], [place] Comment on above: Source- MDRD equatio n with creatinine calibration to IDMS(NKDEP) eGFR not recommended for drug dose adjustment GFR/1.73 sq M predicted among blacks MDRD (S/P/Bld) [Vol rate/Area] mL/min/{1.73_m2} >60 mL/min [place] Glucose [Mass/Vol] 317 mg/dL High 70 - 100 mg/dL [place] Interpretation and review of laboratory results Abnormal [place] Potassium [Moles/Vol] 4.1 mmol/L 3.5 - 5.1 mmol/L [place] Sodium [Moles/Vol] 137 mmol/L 135 - 145 mmol/L [place] Urea nitrogen [Mass/Vol] 11 mg/dL 7 - 20 mg/dL [place] Test Performed by [facility], [address] [place] [address] [place], [place] CBC Auto Differentialon 12-0 Absolute Baso # 0.0 10*3/uL 0 - 0.2 10*3/uL [place] Absolute Neut # 3.9 10*3/uL 1.8 - 7 10*3/uL [place] Basophils/100 WBC (Bld) 0.7 % 0 - 2 % [place] Eosinophils (Bld) [#/Vol] 0.2 10*3/uL 0 - 0.5 10*3/uL [place] Eosinophils/100 WBC (Bld) 2.6 % 1 - 6 % [place] Erythrocyte distribution width (RBC) [Ratio] 13.5 % 11.5 - 14.5 % [place] Granulocytes/100 WBC (Bld) 62.2 % 40 - 80 % [place] Hematocrit (Bld) [Volume fraction] 42.8 % 40 - 52 % [place] Hemoglobin (Bld) [Mass/Vol] 15.0 g/dL 13 - 18 g/dL [place] Lymphocytes (Bld) [#/Vol] 1.7 10*3/uL 1 - 4.3 10*3/uL [place] Lymphocytes/100 WBC (Bld) 27.4 % 20 - 40 % [place] MCH (RBC) [Entitic mass] 28.8 pg 26 - 34 pg [place] MCHC (RBC) [Mass/Vol] 35.1 % 32 - 36 % [place], [place] MCV (RBC) [Entitic vol] 82.3 fL 80 - 98 fL [place], [place] Monocytes (Bld) [#/Vol] 0.4 10*3/uL 0 - 0.8 10*3/uL [place], [place] Monocytes/100 WBC (Bld) 7.1 % 2 - 10 % [place], [place] Platelet mean volume (Bld) [Entitic vol] 7.4 fL 7.4 - 10.4 fL [place] Platelets (Bld) [#/Vol] 162 10*3/uL 140 - 440 10*3/uL [place] RBC (Bld) [#/Vol] 5.20 10*6/uL 4.4 - 5.9 10*6/uL [place] WBC (Bld) [#/Vol] 6.2 10*3/uL 3.6 - 10.7 10*3/uL [place] Test Performed by [facility], [address] [place] [address] [place], [place] Glucose,Bedsideon 10-05-2019 Glucose [Mass/Vol] 214 mg/dL High 70-100 [facility] Comment on above: Result Comment: Test performed by glucose meter. Results may be 10%-15% lower than serum/plasma values. (CLIA ID [id number]) Performed By: #### B GLU #### [address] [address] Hemogram w/ [employer] 10-05 Abs Baso Cnt 0.0 10*3/uL Normal 0.0-0.2 [facility] Comment on above: Performed By: #### B MP3, HEMDF #### [facility] [address] [place] [address] Abs Neutrophile Cnt 3.9 10*3/uL Normal 1.8-7.0 [facility] Comment on above: Performed By: #### B MP3, HEMDF #### [facility] [address] [place] [address] Basophils/100 WBC (Bld) 0.7 % Normal 0.0-2.0 [facility] Comment on above: Performed By: #### B MP3, HEMDF #### [facility] [address] [place] [address] Eosinophils (Bld) [#/Vol] 0.2 10*3/uL Normal 0.0-0.5 [facility] Comment on above: Performed By: #### B MP3, HEMDF #### [facility] [address] [place] [address] Eosinophils/100 WBC (Bld) 2.6 % Normal 1.0-6.0 [facility] Comment on above: Performed By: #### B MP3, HEMDF #### [facility] [address] [place], [place] Erythrocyte distribution width (RBC) [Ratio] 13.5 % Normal 11.5-14.5 [facility] Comment on above: Performed By: #### B MP3, HEMDF #### [facility] [address] [place] [address] Granulocytes/100 WBC (Bld) 62.2 % Normal 40.0-80.0 [facility] Comment on above: Performed By: #### B MP3, HEMDF #### [facility] [address] [place] [address] Hematocrit (Bld) [Volume fraction] 42.8 % Normal 40.0-52.0 [facility] Comment on above: Performed By: #### B MP3, HEMDF #### [facility] [address] [place] [address] Hemoglobin (Bld) [Mass/Vol] 15.0 g/dL Normal 13.0-18.0 [facility] Comment on above: Performed By: #### B MP3, HEMDF #### [facility] [address] [place], [place] Lymphocytes (Bld) [#/Vol] 1.7 10*3/uL Normal 1.0-4.3 [facility] Comment on above: Performed By: #### B MP3, HEMDF #### [address] [address] [place], [place] Lymphocytes/100 WBC (Bld) 27.4 % Normal 20.0-40.0 [facility] Comment on above: Performed By: #### B MP3, HEMDF #### [address] [place] [address] [place] MCH (RBC) [Entitic mass] 28.8 pg Normal 26.0-34.0 [facility] Comment on above: Performed By: #### B MP3, HEMDF #### [address] [place] [address] [place] MCHC (RBC) [Mass/Vol] 35.1 % Normal 32.0-36.0 [facility] Comment on above: Performed By: #### B MP3, HEMDF #### [address] [place] [address] [place] MCV (RBC) [Entitic vol] 82.3 fL Normal 80.0-98.0 S [facility] Comment on above: Performed By: #### B MP3, HEMDF #### [address] [place] [address] [place] Monocytes (Bld) [#/Vol] 0.4 10*3/uL Normal 0.0-0.8 [facility] Comment on above: Performed By: #### B MP3, HEMDF #### [address] [place] [address] [place] Monocytes/100 WBC (Bld) 7.1 % Normal 2.0-10.0 S [facility] Comment on above: Performed By: #### B MP3, HEMDF #### [address] [place] [address] [place] Platelet mean volume (Bld) [Entitic vol] 7.4 fL Normal 7.4-10.4 [facility] Comment on above: Performed By: #### B MP3, HEMDF #### [address] [place] [address] [place] Platelets (Bld) [#/Vol] 162 10*3/uL Normal 140-440 [facility] Comment on above: Performed By: #### B MP3, HEMDF #### [address] [place] [address] [place] RBC (Bld) [#/Vol] 5.20 10*6/uL Normal 4.40-5.90 [facility] Comment on above: Performed By: #### B MP3, HEMDF #### [address] WBC (Bld) [#/Vol] 6.2 10*3/uL Normal 3.6-10.7 [facility] Comment on above: Performed By: #### B MP3, HEMDF #### [address] POCT Glucoseon 10-05-2019 Glucose [Mass/Vol] 214 mg/dL High 70 - 100 mg/dL [place] Comment on above: Test performed by gl ucose meter. Results may be 10%-15% lower than serum/plasma values. (CLIA ID [id number]) Interpretation and review of laboratory results Abnormal [place], [place] Test Performed by [place] [address] [place], [place] Culture, urine Bacteria identified Cx Nom (U) Culture exhibits no growth. [facility] Work Phone: Laboratory - Microbiology an d Antimicrobial susceptibility Bacteria identified Cx Nom (Bld) No growth in 5 days. [facility] Work Phone: No Panel Information SARS-CoV-2 & FLU Antigen (Rapid) [facility] Work Phone: Vital Signs Date Time Vital Sign Value Performing Clinician Facility 06-14-2025 03:17-0400 Body temperature 97.6 [degF] No Primary Care Physician [facility] 06-14-2025 03:17-0400 Diastolic blood pressure 67 mm[Hg] No Primary Care Physician [facility] 06-14-2025 03:17-0400 Heart rate 79 /min No Primary Care Physician [facility] 06-14-2025 03:17-0400 Respiratory rate 16 /min No Primary Care Physician [facility] 06-14-2025 03:17-0400 SaO2% (BldA) [Mass fraction] 96 % No Primary Care Physician [facility] 06-14-2025 03:17-0400 Systolic blood pressure 109 mm[Hg] No Primary Care Physician [facility] 06-14-2025 01:31-0400 Body height 195.58 cm No Primary Care Physician [facility] 06-14-2025 01:31-0400 Body mass index (BMI) [Ratio] 26.3 kg/m2 No Primary Care Physician [facility] 06-14-2025 01:31-0400 Body weight 100.7 kg No Primary Care Physician [facility] 06-03-2025 21:59-0400 Body height 195.58 cm No Primary Care Physician [facility] 06-03-2025 21:59-0400 Body mass index (BMI) [Ratio] 28.8 kg/m2 No Primary Care Physician [facility] 06-03-2025 21:59-0400 Body temperature 96.3 [degF] No Primary Care Physician [facility] 06-03-2025 21:59-0400 Body weight 110.22 kg No Primary Care Physician [facility] 06-03-2025 21:59-0400 Diastolic blood pressure 73 mm[Hg] No Primary Care Physician [facility] 06-03-2025 21:59-0400 Heart rate 80 /min No Primary Care Physician [facility] 06-03-2025 21:59-0400 Respiratory rate 18 /min No Primary Care Physician [facility] 06-03-2025 21:59-0400 SaO2% (BldA) [Mass fraction] 99 % No Primary Care Physician [facility] 06-03-2025 21:59-0400 Systolic blood pressure 102 mm[Hg] No Primary Care Physician [facility] 05-30-2025 00:22-0400 Body temperature 98 [degF] No Primary Care Physician [facility] 05-30-2025 00:22-0400 Diastolic blood pressure 87 mm[Hg] No Primary Care Physician [facility] 05-30-2025 00:22-0400 Heart rate 83 /min No Primary Care Physician [facility] 05-30-2025 00:22-0400 Respiratory rate 15 /min No Primary Care Physician [facility] 05-30-2025 00:22-0400 SaO2% (BldA) [Mass fraction] 97 % No Primary Care Physician [facility] 05-30-2025 00:22-0400 Systolic blood pressure 157 mm[Hg] No Primary Care Physician [facility] 05-29-2025 22:05-0400 Body height 195.58 cm No Primary Care Physician [facility] 05-29-2025 22:05-0400 Body mass index (BMI) [Ratio] 28.8 kg/m2 No Primary Care Physician [facility] 05-29-2025 22:05-0400 Body weight 110.22 kg No Primary Care Physician [facility] 05-22-2025 12:32-0400 Body temperature 97.8 [degF] No Primary Care Physician [facility] 05-22-2025 12:32-0400 Diastolic blood pressure 76 mm[Hg] No Primary Care Physician [facility] 05-22-2025 12:32-0400 Heart rate 66 /min No Primary Care Physician [facility] 05-22-2025 12:32-0400 Respiratory rate 18 /min No Primary Care Physician [facility] 05-22-2025 12:32-0400 SaO2% (BldA) [Mass fraction] 99 % No Primary Care Physician [facility] 05-22-2025 12:32-0400 Systolic blood pressure 129 mm[Hg] No Primary Care Physician [facility] 05-22-2025 07:03-0400 Body height 195.58 cm No Primary Care Physician [facility] 05-22-2025 07:03-0400 Body mass index (BMI) [Ratio] 26.6 kg/m2 No Primary Care Physician [facility] 05-22-2025 07:03-0400 Body weight 101.87 kg No Primary Care Physician [facility] 05-03-2025 14:16-0400 Body temperature 98 [degF] No Primary Care Physician [facility] 05-03-2025 14:16-0400 Diastolic blood pressure 77 mm[Hg] No Primary Care Physician [facility] 05-03-2025 14:16-0400 Heart rate 78 /min No Primary Care Physician [facility] 05-03-2025 14:16-0400 Respiratory rate 16 /min No Primary Care Physician [facility] 05-03-2025 14:16-0400 SaO2% (BldA) [Mass fraction] 97 % No Primary Care Physician [facility] 05-03-2025 14:16-0400 Systolic blood pressure 119 mm[Hg] No Primary Care Physician [facility] 05-03-2025 11:30-0400 Body mass index (BMI) [Ratio] 25.2 kg/m2 No Primary Care Physician [facility] 05-03-2025 11:30-0400 Body weight 96.4 kg No Primary Care Physician [facility] 05-03-2025 11:28-0400 Body height 195.58 cm No Primary Care Physician [facility] 04-21-2025 13:00-0400 Body temperature 97.1 [degF] No Primary Care Physician [facility] 04-21-2025 13:00-0400 Diastolic blood pressure 66 mm[Hg] No Primary Care Physician [facility] 04-21-2025 13:00-0400 Heart rate 64 /min No Primary Care Physician [facility] 04-21-2025 13:00-0400 Respiratory rate 14 /min No Primary Care Physician [facility] 04-21-2025 13:00-0400 SaO2% (BldA) [Mass fraction] 99 % No Primary Care Physician [facility] 04-21-2025 13:00-0400 Systolic blood pressure 141 mm[Hg] No Primary Care Physician [facility] 04-21-2025 10:51-0400 Body height 195.58 cm No Primary Care Physician [facility] 03-26-2025 21:56-0400 Body mass index (BMI) [Ratio] 25.2 kg/m2 Dr. Pedro Krishnan DO Work Phone: [facility] 03-26-2025 21:56-0400 Body weight 96.[address] Pedro Krishnan DO Work Phone: [facility] 03-26-2025 20:09-0400 Body height 195.[address] Pedro Krishnan DO Work Phone: [facility] 03-26-2025 20:09-0400 Body temperature 97.6 [degF] Dr. Pedro Krishnan DO Work Phone: [facility] 03-26-2025 20:09-0400 Diastolic blood pressure 76 mm[Hg] Dr. Pedro Krishnan DO Work Phone: [facility] 03-26-2025 20:09-0400 Heart rate 71 /min Dr. Pedro Krishnan DO Work Phone: [facility] 03-26-2025 20:09-0400 Respiratory rate 18 /min Dr. Pedro Krishnan DO Work Phone: [facility] 03-26-2025 20:09-0400 SaO2% (BldA) [Mass fraction] 99 % Dr. Pedro Krishnan DO Work Phone: [facility] 03-26-2025 20:09-0400 Systolic blood pressure 146 mm[Hg] Dr. Pedro Krishnan DO Work Phone: [facility] 02-16-2025 07:41-0400 Body temperature 98 [degF] Dr. Linden Chavez DO Work Phone: [facility] [facility] 02-16-2025 07:41-0400 Diastolic blood pressure 98 mm[Hg] Dr. Linden Chavez DO Work Phone: [facility] 02-16-2025 07:41-0400 Heart rate 77 /min Dr. Linden Chavez DO Work Phone: [facility] 02-16-2025 07:41-0400 Respiratory rate 19 /min Dr. Linden Chavez DO Work Phone: [facility] 02-16-2025 07:41-0400 SaO2% (BldA) [Mass fraction] 99 % Dr. Linden Chavez DO Work Phone: [facility] 02-16-2025 07:41-0400 Systolic blood pressure 107 mm[Hg] Dr. Linden Chavez DO Work Phone: [facility] 02-16-2025 04:01-0400 Body height 195.[address] Linden Chavez DO Work Phone: [facility] 02-16-2025 04:01-0400 Body mass index (BMI) [Ratio] 24.7 kg/m2 Dr. Linden Chavez DO Work Phone: [facility] 02-16-2025 04:01-0400 Body weight 94.[address] Linden Chavez DO Work Phone: [facility] 12-27-2024 01:46-0500 Body temperature 97.9 [degF] Dr. Linden Chavez DO Work Phone: [facility] 12-27-2024 01:46-0500 Diastolic blood pressure 80 mm[Hg] Dr. Linden Chavez DO Work Phone: [facility] 12-27-2024 01:46-0500 Heart rate 82 /min Dr. Linden Chavez DO Work Phone: [facility] 12-27-2024 01:46-0500 Respiratory rate 18 /min Dr. Linden Chavez DO Work Phone: [facility] 12-27-2024 01:46-0500 SaO2% (BldA) [Mass fraction] 95 % Dr. Linden Chavez DO Work Phone: [facility] 12-27-2024 01:46-0500 Systolic blood pressure 129 mm[Hg] Dr. Linden Chavez DO Work Phone: [facility] 12-26-2024 23:51-0500 Body mass index (BMI) [Ratio] 25.4 kg/m2 Dr. Linden Chavez DO Work Phone: [facility] 12-26-2024 23:51-0500 Body weight 97.[address] Linden Chavez DO Work Phone: [facility] 12-20-2024 20:13-0500 Body temperature 97.8 [degF] Dr. Linden Chavez DO Work Phone: [facility] 12-20-2024 20:13-0500 Diastolic blood pressure 98 mm[Hg] Dr. Linden Chavez DO Work Phone: [facility] 12-20-2024 20:13-0500 Heart rate 98 /min Dr. Linden Chavez DO Work Phone: [facility] 12-20-2024 20:13-0500 Respiratory rate 18 /min Dr. Linden Chavez DO Work Phone: [facility] 12-20-2024 20:13-0500 SaO2% (BldA) [Mass fraction] 97 % Dr. Linden Chavez DO Work Phone: [facility] 12-20-2024 20:13-0500 Systolic blood pressure 130 mm[Hg] Dr. Linden Chavez DO Work Phone: [facility] 12-14-2024 09:29-0500 Body mass index (BMI) [Ratio] 27.02 kg/m2 Ion Antelmo PROJECT LEADER.HYDROELECTRIC COMPONENT MACHINIST Work Phone: [facility] 12-14-2024 09:29-0500 Body temperature 97.11 [degF] Ion Moomaw PROJECT LEADER.HYDROELECTRIC COMPONENT MACHINIST Work Phone: [facility] 12-14-2024 09:29-0500 Body weight 98.7 kg Ion Moomaw PROJECT LEADER.HYDROELECTRIC COMPONENT MACHINIST Work Phone: [facility] 12-14-2024 09:29-0500 Diastolic blood pressure 70 mm[Hg] Ion Moomaw PROJECT LEADER.HYDROELECTRIC COMPONENT MACHINIST Work Phone: [facility] 12-14-2024 09:29-0500 Heart rate 77 /min Ion Moomaw PROJECT LEADER.HYDROELECTRIC COMPONENT MACHINIST Work Phone: [facility] 12-14-2024 09:29-0500 Respiratory rate 18 /min Ion Moomaw PROJECT LEADER.HYDROELECTRIC COMPONENT MACHINIST Work Phone: [facility] 12-14-2024 09:29-0500 SaO2% (BldA) [Mass fraction] 97 % Ion Moomaw PROJECT LEADER.HYDROELECTRIC COMPONENT MACHINIST Work Phone: [facility] 12-14-2024 09:29-0500 Systolic blood pressure 105 mm[Hg] Ion Moomaw PROJECT LEADER.HYDROELECTRIC COMPONENT MACHINIST Work Phone: [facility] 12-08-2024 14:52-0500 Body temperature 97.4 [degF] Dr. Linden Chavez DO Work Phone: [facility] 12-08-2024 14:52-0500 Diastolic blood pressure 102 mm[Hg] Dr. Linden Chavez DO Work Phone: [facility] 12-08-2024 14:52-0500 Heart rate 86 /min Dr. Linden Chavez DO Work Phone: [facility] 12-08-2024 14:52-0500 Respiratory rate 18 /min Dr. Linden Chavez DO Work Phone: [facility] 12-08-2024 14:52-0500 SaO2% (BldA) [Mass fraction] 95 % Dr. Linden Chavez DO Work Phone: [facility] 12-08-2024 14:52-0500 Systolic blood pressure 160 mm[Hg] Dr. Linden Chavez DO Work Phone: [facility] 12-08-2024 12:21-0500 Body mass index (BMI) [Ratio] 26.4 kg/m2 Dr. Linden Chavez DO Work Phone: [facility] 12-08-2024 12:21-0500 Body weight 101.[address] Linden Chavez DO Work Phone: [facility] 11-27-2024 16:07-0500 Body temperature 97.9 [degF] Dr. Linden Chavez DO Work Phone: [facility] 11-27-2024 16:07-0500 Diastolic blood pressure 69 mm[Hg] Dr. Linden Chavez DO Work Phone: [facility] 11-27-2024 16:07-0500 Heart rate 88 /min Dr. Linden Chavez DO Work Phone: [facility] 11-27-2024 16:07-0500 Respiratory rate 18 /min Dr. Linden Chavez DO Work Phone: [facility] 11-27-2024 16:07-0500 SaO2% (BldA) [Mass fraction] 96 % Dr. Linden Chavez DO Work Phone: [facility] 11-27-2024 16:07-0500 Systolic blood pressure 138 mm[Hg] Dr. Linden Chavez DO Work Phone: [facility] 10-30-2024 03:11-0500 Body temperature 97.4 [degF] Dr. Linden Chavez DO Work Phone: [facility] 10-30-2024 03:11-0500 Diastolic blood pressure 89 mm[Hg] Dr. Linden Chavez DO Work Phone: [facility] 10-30-2024 03:11-0500 Heart rate 77 /min Dr. Linden Chavez DO Work Phone: [facility] 10-30-2024 03:11-0500 Respiratory rate 18 /min Dr. Linden Chavez DO Work Phone: [facility] 10-30-2024 03:11-0500 SaO2% (BldA) [Mass fraction] 95 % Dr. Linden Chavez DO Work Phone: [facility] 10-30-2024 03:11-0500 Systolic blood pressure 103 mm[Hg] Dr. Linden Chavez DO Work Phone: [facility] 10-19-2024 06:50-0500 Body temperature 98.3 [degF] Dr. Linden Chavez DO Work Phone: [facility] 10-19-2024 06:50-0500 Diastolic blood pressure 75 mm[Hg] Dr. Linden Chavez DO Work Phone: [facility] 10-19-2024 06:50-0500 Heart rate 75 /min Dr. Linden Chavez DO Work Phone: [facility] 10-19-2024 06:50-0500 Respiratory rate 18 /min Dr. Linden Chavez DO Work Phone: [facility] 10-19-2024 06:50-0500 SaO2% (BldA) [Mass fraction] 96 % Dr. Linden Chavez DO Work Phone: [facility] 10-19-2024 06:50-0500 Systolic blood pressure 107 mm[Hg] Dr. Linden Chavez DO Work Phone: [facility] 10-19-2024 03:58-0500 Body mass index (BMI) [Ratio] 25.9 kg/m2 Dr. Linden Chavez DO Work Phone: [facility] 10-19-2024 03:58-0500 Body weight 99.[address] Linden Chavez DO Work Phone: [facility] 05-10-2024 19:42-0400 Body mass index (BMI) [Ratio] 27.65 kg/m2 Rosa Quinones APRN.HYDROELECTRIC COMPONENT MACHINIST Work Phone: [facility] 05-10-2024 19:42-0400 Body temperature 97.5 [degF] Rosa Quinones APRN.HYDROELECTRIC COMPONENT MACHINIST Work Phone: [facility] 05-10-2024 19:42-0400 Body weight 101 kg Rosa Quinones PROJECT LEADER.HYDROELECTRIC COMPONENT MACHINIST Work Phone: [facility] 05-10-2024 19:42-0400 Diastolic blood pressure 81 mm[Hg] Rosa Quinones PROJECT LEADER.HYDROELECTRIC COMPONENT MACHINIST Work Phone: [facility] 05-10-2024 19:42-0400 Heart rate 72 /min Rosa Quinones PROJECT LEADER.HYDROELECTRIC COMPONENT MACHINIST Work Phone: [facility] 05-10-2024 19:42-0400 Respiratory rate 20 /min Rosa Quinones PROJECT LEADER.HYDROELECTRIC COMPONENT MACHINIST Work Phone: [facility] 05-10-2024 19:42-0400 SaO2% (BldA) [Mass fraction] 96 % Rosa Quinones PROJECT LEADER.HYDROELECTRIC COMPONENT MACHINIST Work Phone: [facility] 05-10-2024 19:42-0400 Systolic blood pressure 135 mm[Hg] Rosa Quinones PROJECT LEADER.HYDROELECTRIC COMPONENT MACHINIST Work Phone: [facility] 03-09-2024 02:47-0400 Body temperature 98.7 [degF] [facility] 03-09-2024 02:47-0400 Diastolic blood pressure 71 mm[Hg] [facility] 03-09-2024 02:47-0400 Heart rate 79 /min [facility] 03-09-2024 02:47-0400 Respiratory rate 16 /min [facility] 03-09-2024 02:47-0400 SaO2% (BldA) [Mass fraction] 99 % [facility] 03-09-2024 02:47-0400 Systolic blood pressure 136 mm[Hg] [facility] 03-09-2024 01:35-0400 Body height 195.58 cm [facility] 03-09-2024 01:35-0400 Body mass index (BMI) [Ratio] 26.1 kg/m2 [facility] 03-09-2024 01:35-0400 Body weight 100 kg [facility] 03-08-2024 10:04-0400 Body temperature 98.4 [degF] [facility] 03-08-2024 10:04-0400 Diastolic blood pressure 87 mm[Hg] [facility] 03-08-2024 10:04-0400 Heart rate 79 /min [facility] 03-08-2024 10:04-0400 Respiratory rate 17 /min [facility] 03-08-2024 10:04-0400 SaO2% (BldA) [Mass fraction] 96 % [facility] 03-08-2024 10:04-0400 Systolic blood pressure 142 mm[Hg] [facility] 03-08-2024 06:24-0400 Body height 195.58 cm [facility] 03-08-2024 06:24-0400 Body mass index (BMI) [Ratio] 27.3 kg/m2 [facility] 03-08-2024 06:24-0400 Body weight 104.7 kg [facility] 02-08-2024 00:47-0400 Body temperature 98.4 [degF] [facility] 02-08-2024 00:47-0400 Diastolic blood pressure 67 mm[Hg] [facility] 02-08-2024 00:47-0400 Heart rate 92 /min [facility] 02-08-2024 00:47-0400 Respiratory rate 16 /min [facility] 02-08-2024 00:47-0400 SaO2% (BldA) [Mass fraction] 95 % [facility] 02-08-2024 00:47-0400 Systolic blood pressure 114 mm[Hg] [facility] 02-07-2024 19:16-0400 Body height 195.58 cm [facility] 02-07-2024 19:16-0400 Body mass index (BMI) [Ratio] 26.7 kg/m2 [facility] 02-07-2024 19:16-0400 Body weight 102.42 kg [facility] 01-27-2024 06:12-0400 Body temperature 97.8 [degF] [facility] 01-27-2024 06:12-0400 Diastolic blood pressure 60 mm[Hg] [facility] 01-27-2024 06:12-0400 Heart rate 66 /min [facility] 01-27-2024 06:12-0400 Respiratory rate 18 /min [facility] 01-27-2024 06:12-0400 SaO2% (BldA) [Mass fraction] 98 % [facility] 01-27-2024 06:12-0400 Systolic blood pressure 100 mm[Hg] [facility] 01-26-2024 23:30-0400 Body height 195.58 cm [facility] 01-26-2024 23:30-0400 Body mass index (BMI) [Ratio] 27.5 kg/m2 [facility] 01-26-2024 23:30-0400 Body weight 105.2 kg [facility] 12-25-2023 11:45-0500 Body temperature 97.4 [degF] [facility] 12-25-2023 11:45-0500 Diastolic blood pressure 81 mm[Hg] [facility] 12-25-2023 11:45-0500 Heart rate 74 /min [facility] 12-25-2023 11:45-0500 Respiratory rate 16 /min [facility] 12-25-2023 11:45-0500 SaO2% (BldA) [Mass fraction] 97 % [facility] 12-25-2023 11:45-0500 Systolic blood pressure 147 mm[Hg] [facility] 12-25-2023 08:45-0500 Body height 195.58 cm [facility] 12-25-2023 08:45-0500 Body mass index (BMI) [Ratio] 26.7 kg/m2 [facility] 12-25-2023 08:45-0500 Body weight 102.3 kg [facility] 12-18-2023 17:53-0500 Body temperature 98.2 [degF] [facility] 12-18-2023 17:53-0500 Diastolic blood pressure 61 mm[Hg] [facility] 12-18-2023 17:53-0500 Heart rate 77 /min [facility] 12-18-2023 17:53-0500 Respiratory rate 18 /min [facility] 12-18-2023 17:53-0500 SaO2% (BldA) [Mass fraction] 97 % [facility] 12-18-2023 17:53-0500 Systolic blood pressure 109 mm[Hg] [facility] 12-18-2023 16:22-0500 Body mass index (BMI) [Ratio] 26.7 kg/m2 [facility] 12-18-2023 16:22-0500 Body weight 102.2 kg [facility] 12-18-2023 15:34-0500 Body height 195.58 cm [facility] 12-08-2023 14:42-0500 Respiratory rate 18 /min [facility] 12-08-2023 12:40-0500 Body height 195.58 cm [facility] 12-08-2023 12:40-0500 Body temperature 99.7 [degF] [facility] 12-08-2023 12:40-0500 Diastolic blood pressure 82 mm[Hg] [facility] 12-08-2023 12:40-0500 Heart rate 75 /min [facility] 12-08-2023 12:40-0500 SaO2% (BldA) [Mass fraction] 95 % [facility] 12-08-2023 12:40-0500 Systolic blood pressure 115 mm[Hg] [facility] 11-22-2023 17:37-0500 Diastolic blood pressure 74 mm[Hg] [facility] 11-22-2023 17:37-0500 Heart rate 71 /min [facility] 11-22-2023 17:37-0500 Respiratory rate 16 /min [facility] 11-22-2023 17:37-0500 SaO2% (BldA) [Mass fraction] 98 % [facility] 11-22-2023 17:37-0500 Systolic blood pressure 118 mm[Hg] [facility] 11-22-2023 14:21-0500 Body height 195.58 cm [facility] 11-22-2023 14:21-0500 Body mass index (BMI) [Ratio] 26.2 kg/m2 [facility] 11-22-2023 14:21-0500 Body temperature 97.6 [degF] [facility] 11-22-2023 14:21-0500 Body weight 100.4 kg [facility] 09-30-2023 23:40-0500 Body height 196.01 cm [facility] 09-30-2023 23:40-0500 Body mass index (BMI) [Ratio] 28.3 kg/m2 [facility] 09-30-2023 23:40-0500 Body temperature 97.7 [degF] [facility] 09-30-2023 23:40-0500 Body weight 108.86 kg [facility] 09-30-2023 23:40-0500 Diastolic blood pressure 77 mm[Hg] [facility] 09-30-2023 23:40-0500 Heart rate 77 /min [facility] 09-30-2023 23:40-0500 Respiratory rate 18 /min [facility] 09-30-2023 23:40-0500 SaO2% (BldA) [Mass fraction] 95 % [facility] 09-30-2023 23:40-0500 Systolic blood pressure 127 mm[Hg] [facility] 09-29-2023 23:39-0500 Diastolic blood pressure 83 mm[Hg] [facility] 09-29-2023 23:39-0500 Systolic blood pressure 132 mm[Hg] [facility] 09-29-2023 19:23-0500 Body height 195.58 cm [facility] 09-29-2023 19:23-0500 Body mass index (BMI) [Ratio] 28.4 kg/m2 [facility] 09-29-2023 19:23-0500 Body temperature 97.6 [degF] [facility] 09-29-2023 19:23-0500 Body weight 108.86 kg [facility] 09-29-2023 19:23-0500 Heart rate 82 /min [facility] 09-29-2023 19:23-0500 Respiratory rate 18 /min [facility] 09-29-2023 19:23-0500 SaO2% (BldA) [Mass fraction] 96 % [facility] 08-26-2023 05:07-0400 Body height 195.58 cm [facility] 08-26-2023 05:07-0400 Body mass index (BMI) [Ratio] 27.2 kg/m2 [facility] 08-26-2023 05:07-0400 Body temperature 97.3 [degF] [facility] 08-26-2023 05:07-0400 Body weight 104.3 kg [facility] 08-26-2023 05:07-0400 Diastolic blood pressure 80 mm[Hg] [facility] 08-26-2023 05:07-0400 Heart rate 78 /min [facility] 08-26-2023 05:07-0400 Respiratory rate 18 /min [facility] 08-26-2023 05:07-0400 SaO2% (BldA) [Mass fraction] 98 % [facility] 08-26-2023 05:07-0400 Systolic blood pressure 144 mm[Hg] [facility] 08-18-2023 15:51-0400 Body temperature 97.59 [degF] [facility] PROJECT LEADER.HYDROELECTRIC COMPONENT MACHINIST Work Phone: [facility] 08-18-2023 15:51-0400 Body weight 102.97 [facility] PROJECT LEADER.HYDROELECTRIC COMPONENT MACHINIST Work Phone: [facility] 08-18-2023 15:51-0400 Diastolic blood pressure 80 mm[Hg] Jimmy Pendlebury PROJECT LEADER.HYDROELECTRIC COMPONENT MACHINIST Work Phone: [facility] 08-18-2023 15:51-0400 Heart rate 74 /min Jimmy Pendlebury PROJECT LEADER.HYDROELECTRIC COMPONENT MACHINIST Work Phone: [facility] 08-18-2023 15:51-0400 Respiratory rate 20 /min Jimmy Pendlebury PROJECT LEADER.HYDROELECTRIC COMPONENT MACHINIST Work Phone: [facility] 08-18-2023 15:51-0400 SaO2% (BldA) [Mass fraction] 98 % Jimmy Pendlebury PROJECT LEADER.HYDROELECTRIC COMPONENT MACHINIST Work Phone: [facility] 08-18-2023 15:51-0400 Systolic blood pressure 127 mm[Hg] Jimmy Pendlebury PROJECT LEADER.HYDROELECTRIC COMPONENT MACHINIST Work Phone: [facility] 07-29-2023 13:51-0400 Diastolic blood pressure 101 mm[Hg] [facility] 07-29-2023 13:51-0400 Heart rate 86 /min [facility] 07-29-2023 13:51-0400 Respiratory rate 16 /min [facility] 07-29-2023 13:51-0400 SaO2% (BldA) [Mass fraction] 88 % [facility] 07-29-2023 13:51-0400 Systolic blood pressure 135 mm[Hg] [facility] 07-29-2023 09:08-0400 Body mass index (BMI) [Ratio] 28.2 kg/m2 [facility] 07-29-2023 09:08-0400 Body temperature 97.5 [degF] [facility] 07-29-2023 09:08-0400 Body weight 107.95 kg [facility] 05-12-2023 15:52-0400 Body height 195.58 cm [facility] 05-12-2023 15:52-0400 Body mass index (BMI) [Ratio] 28.4 kg/m2 [facility] 05-12-2023 15:52-0400 Body temperature 97.1 [degF] [facility] 05-12-2023 15:52-0400 Body weight 108.86 kg [facility] 05-12-2023 15:52-0400 Diastolic blood pressure 76 mm[Hg] [facility] 05-12-2023 15:52-0400 Heart rate 72 /min [facility] 05-12-2023 15:52-0400 Respiratory rate 14 /min [facility] 05-12-2023 15:52-0400 SaO2% (BldA) [Mass fraction] 94 % [facility] 05-12-2023 15:52-0400 Systolic blood pressure 125 mm[Hg] [facility] 03-07-2023 05:36-0400 Diastolic blood pressure 88 mm[Hg] [facility] 03-07-2023 05:36-0400 Heart rate 81 /min [facility] 03-07-2023 05:36-0400 Respiratory rate 18 /min [facility] 03-07-2023 05:36-0400 SaO2% (BldA) [Mass fraction] 96 % [facility] 03-07-2023 05:36-0400 Systolic blood pressure 141 mm[Hg] [facility] 03-07-2023 01:11-0400 Body height 187.96 cm [facility] 03-07-2023 01:11-0400 Body mass index (BMI) [Ratio] 30.2 kg/m2 [facility] 03-07-2023 01:11-0400 Body temperature 97.9 [degF] [facility] 03-07-2023 01:11-0400 Body weight 106.9 kg [facility] 01-18-2023 09:50-0400 Diastolic blood pressure 66 mm[Hg] [facility] 01-18-2023 09:50-0400 Heart rate 72 /min [facility] 01-18-2023 09:50-0400 Respiratory rate 15 /min [facility] 01-18-2023 09:50-0400 SaO2% (BldA) [Mass fraction] 98 % [facility] 01-18-2023 09:50-0400 Systolic blood pressure 143 mm[Hg] [facility] 01-18-2023 07:58-0400 Body height 195.58 cm [facility] 01-18-2023 07:58-0400 Body mass index (BMI) [Ratio] 27.2 kg/m2 [facility] 01-18-2023 07:58-0400 Body temperature 97.9 [degF] [facility] 01-18-2023 07:58-0400 Body weight 104.2 kg [facility] 12-11-2022 19:20-0500 Diastolic blood pressure 93 mm[Hg] [facility] 12-11-2022 19:20-0500 Heart rate 77 /min [facility] 12-11-2022 19:20-0500 Respiratory rate 16 /min [facility] 12-11-2022 19:20-0500 SaO2% (BldA) [Mass fraction] 96 % [facility] 12-11-2022 19:20-0500 Systolic blood pressure 154 mm[Hg] [facility] 12-11-2022 16:13-0500 Body height 195.58 cm [facility] 12-11-2022 16:13-0500 Body mass index (BMI) [Ratio] 27.7 kg/m2 [facility] [facility] 12-11-2022 16:13-0500 Body temperature 96.5 [degF] [facility] 12-11-2022 16:13-0500 Body weight 106.14 kg [facility] 12-10-2022 12:37-0500 Heart rate 78 /min [facility] 12-10-2022 12:37-0500 Respiratory rate 18 /min [facility] 12-10-2022 09:48-0500 Body height 195.58 cm [facility] 12-10-2022 09:48-0500 Body mass index (BMI) [Ratio] 27.8 kg/m2 [facility] 12-10-2022 09:48-0500 Body temperature 97.9 [degF] [facility] 12-10-2022 09:48-0500 Body weight 106.59 kg [facility] 12-10-2022 09:48-0500 Diastolic blood pressure 73 mm[Hg] [facility] 12-10-2022 09:48-0500 SaO2% (BldA) [Mass fraction] 99 % [facility] 12-10-2022 09:48-0500 Systolic blood pressure 109 mm[Hg] [facility] 11-25-2022 15:13-0500 Diastolic blood pressure 69 mm[Hg] [facility] 11-25-2022 15:13-0500 Heart rate 81 /min [facility] 11-25-2022 15:13-0500 Respiratory rate 16 /min [facility] 11-25-2022 15:13-0500 SaO2% (BldA) [Mass fraction] 97 % [facility] 11-25-2022 15:13-0500 Systolic blood pressure 137 mm[Hg] [facility] 11-25-2022 13:07-0500 Body height 195.58 cm [facility] 11-25-2022 13:07-0500 Body mass index (BMI) [Ratio] 27.7 kg/m2 [facility] 11-25-2022 13:07-0500 Body temperature 97.6 [degF] [facility] 11-25-2022 13:07-0500 Body weight 106.14 kg [facility] 10-30-2022 04:24-0500 Diastolic blood pressure 71 mm[Hg] [facility] 10-30-2022 04:24-0500 Heart rate 79 /min [facility] 10-30-2022 04:24-0500 Respiratory rate 16 /min [facility] 10-30-2022 04:24-0500 SaO2% (BldA) [Mass fraction] 95 % [facility] 10-30-2022 04:24-0500 Systolic blood pressure 115 mm[Hg] [facility] 10-29-2022 21:00-0500 Body mass index (BMI) [Ratio] 27.8 kg/m2 [facility] 10-29-2022 21:00-0500 Body temperature 97.3 [degF] [facility] 10-29-2022 21:00-0500 Body weight 106.59 kg [facility] 09-18-2022 10:21-0500 Body height 195.58 cm [facility] Work Phone: 09-18-2022 10:21-0500 Body mass index (BMI) [Ratio] 27.7 kg/m2 [facility] 09-18-2022 10:21-0500 Body temperature 97.4 [degF] [facility] 09-18-2022 10:21-0500 Body weight 106.14 kg [facility] 09-18-2022 10:21-0500 Diastolic blood pressure 94 mm[Hg] [facility] 09-18-2022 10:21-0500 Heart rate 77 /min [facility] 09-18-2022 10:21-0500 Respiratory rate 16 /min [facility] 09-18-2022 10:21-0500 SaO2% (BldA) [Mass fraction] 99 % [facility] 09-18-2022 10:21-0500 Systolic blood pressure 106 mm[Hg] [facility] 08-07-2022 22:15-0400 Diastolic blood pressure 70 mm[Hg] [facility] 08-07-2022 22:15-0400 Heart rate 83 /min [facility] 08-07-2022 22:15-0400 Respiratory rate 16 /min [facility] 08-07-2022 22:15-0400 SaO2% (BldA) [Mass fraction] 98 % [facility] 08-07-2022 22:15-0400 Systolic blood pressure 120 mm[Hg] [facility] 08-07-2022 18:39-0400 Body height 195.58 cm [facility] Work Phone: 08-07-2022 18:39-0400 Body mass index (BMI) [Ratio] 28.4 kg/m2 [facility] 08-07-2022 18:39-0400 Body temperature 97.8 [degF] [facility] 08-07-2022 18:39-0400 Body weight 108.86 kg [facility] 07-03-2022 00:40-0400 Heart rate 77 /min No Primary Care Physician [facility] Work Phone: 07-03-2022 00:40-0400 Respiratory rate 18 /min No Primary Care Physician [facility] Work Phone: 07-02-2022 20:57-0400 Body height 195.58 cm No Primary Care Physician [facility] Work Phone: 07-02-2022 20:57-0400 Body mass index (BMI) [Ratio] 27.8 kg/m2 No Primary Care Physician [facility] Work Phone: 07-02-2022 20:57-0400 Body temperature 97.8 [degF] No Primary Care Physician [facility] Work Phone: 07-02-2022 20:57-0400 Body weight 106.59 kg No Primary Care Physician [facility] Work Phone: 07-02-2022 20:57-0400 Diastolic blood pressure 97 mm[Hg] No Primary Care Physician [facility] Work Phone: 07-02-2022 20:57-0400 SaO2% (BldA) [Mass fraction] 99 % No Primary Care Physician [facility] Work Phone: 07-02-2022 20:57-0400 Systolic blood pressure 140 mm[Hg] No Primary Care Physician [facility] Work Phone: 05-26-2022 01:37-0400 Body height 195.58 cm No Primary Care Physician [facility] Work Phone: 05-26-2022 01:37-0400 Body mass index (BMI) [Ratio] 27.7 kg/m2 No Primary Care Physician [facility] Work Phone: 05-26-2022 01:37-0400 Body temperature 97.1 [degF] No Primary Care Physician [facility] Work Phone: 05-26-2022 01:37-0400 Body weight 106.14 kg No Primary Care Physician [facility] Work Phone: 05-26-2022 01:37-0400 Diastolic blood pressure 82 mm[Hg] No Primary Care Physician [facility] Work Phone: 05-26-2022 01:37-0400 Heart rate 79 /min No Primary Care Physician [facility] Work Phone: 05-26-2022 01:37-0400 Respiratory rate 16 /min No Primary Care Physician [facility] Work Phone: 05-26-2022 01:37-0400 SaO2% (BldA) [Mass fraction] 98 % No Primary Care Physician [facility] Work Phone: 05-26-2022 01:37-0400 Systolic blood pressure 137 mm[Hg] No Primary Care Physician [facility] Work Phone: 04-26-2022 18:38-0400 Heart rate 76 /min No Primary Care Physician [facility] Work Phone: 04-26-2022 18:38-0400 Respiratory rate 17 /min No Primary Care Physician [facility] Work Phone: 04-26-2022 18:38-0400 SaO2% (BldA) [Mass fraction] 97 % No Primary Care Physician [facility] Work Phone: 04-26-2022 14:33-0400 Body temperature 98 [degF] No Primary Care Physician [facility] Work Phone: 04-26-2022 14:33-0400 Diastolic blood pressure 74 mm[Hg] No Primary Care Physician [facility] Work Phone: 04-26-2022 14:33-0400 Heart rate 71 /min No Primary Care Physician [facility] Work Phone: 04-26-2022 14:33-0400 Respiratory rate 18 /min No Primary Care Physician [facility] Work Phone: 04-26-2022 14:33-0400 SaO2% (BldA) [Mass fraction] 99 % No Primary Care Physician [facility] Work Phone: 04-26-2022 14:33-0400 Systolic blood pressure 117 mm[Hg] No Primary Care Physician [facility] Work Phone: 04-26-2022 14:06-0400 Body height 195.58 cm No Primary Care Physician [facility] Work Phone: 04-26-2022 14:06-0400 Body mass index (BMI) [Ratio] 28.9 kg/m2 No Primary Care Physician [facility] Work Phone: 04-26-2022 14:06-0400 Body weight 110.67 kg No Primary Care Physician [facility] Work Phone: 03-20-2022 14:23-0400 Body temperature 99 [degF] No Primary Care Physician [facility] Work Phone: 03-20-2022 14:19-0400 Diastolic blood pressure 97 mm[Hg] No Primary Care Physician [facility] Work Phone: 03-20-2022 14:19-0400 Heart rate 70 /min No Primary Care Physician [facility] Work Phone: 03-20-2022 14:19-0400 Respiratory rate 16 /min No Primary Care Physician [facility] Work Phone: 03-20-2022 14:19-0400 SaO2% (BldA) [Mass fraction] 97 % No Primary Care Physician [facility] Work Phone: 03-20-2022 14:19-0400 Systolic blood pressure 156 mm[Hg] No Primary Care Physician [facility] Work Phone: 03-20-2022 12:29-0400 Body height 195.58 cm No Primary Care Physician [facility] Work Phone: 03-20-2022 12:29-0400 Body weight 98.6 kg No Primary Care Physician [facility] Work Phone: 03-19-2022 23:34-0400 Body mass index (BMI) [Ratio] 25.7 kg/m2 No Primary Care Physician [facility] Work Phone: 03-19-2022 23:08-0400 Body temperature 98.1 [degF] No Primary Care Physician [facility] Work Phone: 03-19-2022 23:08-0400 Diastolic blood pressure 89 mm[Hg] No Primary Care Physician [facility] Work Phone: 03-19-2022 23:08-0400 Heart rate 98 /min No Primary Care Physician [facility] Work Phone: 03-19-2022 23:08-0400 Respiratory rate 14 /min No Primary Care Physician [facility] Work Phone: 03-19-2022 23:08-0400 SaO2% (BldA) [Mass fraction] 97 % No Primary Care Physician [facility] Work Phone: 03-19-2022 23:08-0400 Systolic blood pressure 126 mm[Hg] No Primary Care Physician [facility] Work Phone: 03-19-2022 17:31-0400 Body height 195.58 cm No Primary Care Physician [facility] Work Phone: 03-19-2022 17:31-0400 Body mass index (BMI) [Ratio] 27.7 kg/m2 No Primary Care Physician [facility] Work Phone: 03-19-2022 17:31-0400 Body weight 106.14 kg No Primary Care Physician [facility] Work Phone: 03-02-2022 18:53-0400 Body height 195.58 cm No Primary Care Physician [facility] Work Phone: 03-02-2022 18:53-0400 Body mass index (BMI) [Ratio] 27.7 kg/m2 No Primary Care Physician [facility] Work Phone: 03-02-2022 18:53-0400 Body temperature 97.2 [degF] No Primary Care Physician [facility] Work Phone: 03-02-2022 18:53-0400 Body weight 106.14 kg No Primary Care Physician [facility] Work Phone: 03-02-2022 18:53-0400 Diastolic blood pressure 96 mm[Hg] No Primary Care Physician [facility] Work Phone: 03-02-2022 18:53-0400 Heart rate 82 /min No Primary Care Physician [facility] Work Phone: 03-02-2022 18:53-0400 Respiratory rate 15 /min No Primary Care Physician [facility] Work Phone: 03-02-2022 18:53-0400 SaO2% (BldA) [Mass fraction] 98 % No Primary Care Physician [facility] Work Phone: 03-02-2022 18:53-0400 Systolic blood pressure 145 mm[Hg] No Primary Care Physician [facility] Work Phone: 01-31-2022 09:08-0400 Diastolic blood pressure 77 mm[Hg] No Primary Care Physician [facility] Work Phone: 01-31-2022 09:08-0400 Heart rate 62 /min No Primary Care Physician [facility] Work Phone: 01-31-2022 09:08-0400 Respiratory rate 15 /min No Primary Care Physician [facility] Work Phone: 01-31-2022 09:08-0400 SaO2% (BldA) [Mass fraction] 98 % No Primary Care Physician [facility] Work Phone: 01-31-2022 09:08-0400 Systolic blood pressure 124 mm[Hg] No Primary Care Physician [facility] Work Phone: 01-31-2022 08:10-0400 Body mass index (BMI) [Ratio] 28.9 kg/m2 No Primary Care Physician [facility] Work Phone: 01-31-2022 08:10-0400 Body temperature 97.8 [degF] No Primary Care Physician [facility] Work Phone: 01-31-2022 08:10-0400 Body weight 110.67 kg No Primary Care Physician [facility] Work Phone: 01-08-2022 11:14-0500 Diastolic blood pressure 91 mm[Hg] No Primary Care Physician [facility] Work Phone: 01-08-2022 11:14-0500 Heart rate 78 /min No Primary Care Physician [facility] Work Phone: 01-08-2022 11:14-0500 Respiratory rate 16 /min No Primary Care Physician [facility] Work Phone: 01-08-2022 11:14-0500 Systolic blood pressure 136 mm[Hg] No Primary Care Physician [facility] Work Phone: 01-08-2022 10:14-0500 Diastolic blood pressure 91 mm[Hg] No Primary Care Physician [facility] Work Phone: 01-08-2022 10:14-0500 Heart rate 78 /min No Primary Care Physician [facility] Work Phone: 01-08-2022 10:14-0500 Respiratory rate 16 /min No Primary Care Physician [facility] Work Phone: 01-08-2022 10:14-0500 Systolic blood pressure 136 mm[Hg] No Primary Care Physician [facility] Work Phone: 01-08-2022 07:05-0500 Body mass index (BMI) [Ratio] 25.9 kg/m2 No Primary Care Physician [facility] Work Phone: 01-08-2022 07:05-0500 Body temperature 98.6 [degF] No Primary Care Physician [facility] Work Phone: 01-08-2022 07:05-0500 Body weight 99.4 kg No Primary Care Physician [facility] Work Phone: 01-08-2022 07:05-0500 SaO2% (BldA) [Mass fraction] 97 % No Primary Care Physician [facility] Work Phone: 01-08-2022 06:05-0500 Body mass index (BMI) [Ratio] 25.9 kg/m2 No Primary Care Physician [facility] Work Phone: 01-08-2022 06:05-0500 Body temperature 98.6 [degF] No Primary Care Physician [facility] Work Phone: 01-08-2022 06:05-0500 Body weight 99.4 kg No Primary Care Physician [facility] Work Phone: 01-08-2022 06:05-0500 SaO2% (BldA) [Mass fraction] 97 % No Primary Care Physician [facility] Work Phone: 01-07-2022 08:31-0500 Body temperature 98 [degF] No Primary Care Physician [facility] Work Phone: 01-07-2022 08:31-0500 Diastolic blood pressure 82 mm[Hg] No Primary Care Physician [facility] Work Phone: 01-07-2022 08:31-0500 Heart rate 70 /min No Primary Care Physician [facility] Work Phone: 01-07-2022 08:31-0500 Respiratory rate 16 /min No Primary Care Physician [facility] Work Phone: 01-07-2022 08:31-0500 SaO2% (BldA) [Mass fraction] 95 % No Primary Care Physician [facility] Work Phone: 01-07-2022 08:31-0500 Systolic blood pressure 138 mm[Hg] No Primary Care Physician [facility] Work Phone: 01-07-2022 07:31-0500 Body temperature 98 [degF] No Primary Care Physician [facility] Work Phone: 01-07-2022 07:31-0500 Diastolic blood pressure 82 mm[Hg] No Primary Care Physician [facility] Work Phone: 01-07-2022 07:31-0500 Heart rate 70 /min No Primary Care Physician [facility] Work Phone: 01-07-2022 07:31-0500 Respiratory rate 16 /min No Primary Care Physician [facility] Work Phone: 01-07-2022 07:31-0500 SaO2% (BldA) [Mass fraction] 95 % No Primary Care Physician [facility] Work Phone: 01-07-2022 07:31-0500 Systolic blood pressure 138 mm[Hg] No Primary Care Physician [facility] Work Phone: 01-05-2022 10:48-0500 Body weight 97.25 kg No Primary Care Physician [facility] Work Phone: 01-05-2022 09:55-0500 Body mass index (BMI) [Ratio] 25.4 kg/m2 No Primary Care Physician [facility] Work Phone: 01-05-2022 09:48-0500 Body weight 97.25 kg No Primary Care Physician [facility] Work Phone: 01-05-2022 08:55-0500 Body mass index (BMI) [Ratio] 25.4 kg/m2 No Primary Care Physician [facility] Work Phone: 11-12-2021 20:28-0500 Diastolic blood pressure 81 mm[Hg] No Primary Care Physician [facility] Work Phone: 11-12-2021 20:28-0500 Heart rate 71 /min No Primary Care Physician [facility] Work Phone: 11-12-2021 20:28-0500 Systolic blood pressure 128 mm[Hg] No Primary Care Physician [facility] Work Phone: 11-12-2021 17:55-0500 Body temperature 97.3 [degF] No Primary Care Physician [facility] Work Phone: 11-12-2021 17:55-0500 Respiratory rate 15 /min No Primary Care Physician [facility] Work Phone: 11-12-2021 17:55-0500 SaO2% (BldA) [Mass fraction] 96 % No Primary Care Physician [facility] Work Phone: 11-12-2021 17:53-0500 Body mass index (BMI) [Ratio] 28.2 kg/m2 No Primary Care Physician [facility] Work Phone: 11-12-2021 17:53-0500 Body weight 107.95 kg No Primary Care Physician [facility] Work Phone: 11-09-2021 08:52-0500 Diastolic blood pressure 92 mm[Hg] No Primary Care Physician [facility] Work Phone: 11-09-2021 08:52-0500 Heart rate 74 /min No Primary Care Physician [facility] Work Phone: 11-09-2021 08:52-0500 SaO2% (BldA) [Mass fraction] 95 % No Primary Care Physician [facility] Work Phone: 11-09-2021 08:52-0500 Systolic blood pressure 138 mm[Hg] No Primary Care Physician [facility] Work Phone: 11-09-2021 06:25-0500 Body mass index (BMI) [Ratio] 27.8 kg/m2 No Primary Care Physician [facility] Work Phone: 11-09-2021 06:25-0500 Body temperature 96.9 [degF] No Primary Care Physician [facility] Work Phone: 11-09-2021 06:25-0500 Body weight 106.59 kg No Primary Care Physician [facility] Work Phone: 11-09-2021 06:25-0500 Respiratory rate 18 /min No Primary Care Physician [facility] Work Phone: 10-07-2019 07:48-0500 Body Temperature 96.1 [degF] [facility], [place] 10-07-2019 07:48-0500 BP Diastolic 90 mm[Hg] [place], [place] 10-07-2019 07:48-0500 BP Systolic 139 mm[Hg] [place], [place] 10-07-2019 07:48-0500 Pulse (Heart Rate) 72 /min [place], [place] 10-07-2019 07:48-0500 Pulse Oximetry 95 % [place], [place] 10-07-2019 07:48-0500 Respiratory Rate 16 /min [place], [place] 10-07-2019 06:06-0500 BMI (Body Mass Index) 26.7 kg/m2 [place], [place] 10-07-2019 06:06-0500 Body weight 102.15 kg [place], [place] 10-06-2019 12:03-0500 Height 195.6 cm [place] Encounters Encounter Date Encounter Type Care Provider Facility Start: 08-01-2025 ambulatory Donaldo Friend Facility :[facility] Start: 06-14-2025 End: 06-14-2025 No Primary Care Physician -Emergency Department Work Phone: Start: 06-14-2025 End: 06-14-2025 Emergency department patient visit No Primary Care Physician -Emergency Department Start: 06-03-2025 End: 06-03-2025 No Primary Care Physician -Emergency Department Work Phone: Start: 06-03-2025 End: 06-03-2025 Emergency department patient visit No Primary Care Physician -Emergency Department Work Phone: Start: 05-29-2025 End: 05-30-2025 Dr. Antonette Dominguez DO -Emergency Departme nt Work Phone: Start: 05-29-2025 End: 05-30-2025 Emergency department patient visit No Primary Care Physician -Emergency Department Work Phone: Start: 05-23-2025 End: 05-23-2025 Patient encounter procedure Rosio Tesfaye NP-C -[facility] Work Phone: Start: 05-23-2025 End: 05-23-2025 Rosio Tesfaye NP-C -[facility] Work Phone: Start: 05-23-2025 End: 05-23-2025 ambulatory No Primary Care Physician -[facility] Start: 05-22-2025 End: 05-22-2025 Dr. Antonette Dominguez DO -Emergency Departme nt Work Phone: Start: 05-22-2025 End: 05-22-2025 Emergency department patient visit No Primary Care Physician -Emergency Department Work Phone: Start: 05-03-2025 End: 05-03-2025 Dr. Pedro Krishnan DO -Emergency Departmen t Work Phone: Start: 05-03-2025 End: 05-03-2025 Emergency department patient visit No Primary Care Physician -Emergency Department Work Phone: Start: 04-26-2025 End: 04-26-2025 ambulatory No Primary Care Physician -Laboratory Specimen Start: 04-26-2025 End: 04-26-[address] Linden Chavez DO -Laboratory Specimen Work Phone: Start: 04-26-2025 End: 04-26-2025 Dr. Linden Chavez DO -Laboratory Specime n Work Phone: Start: 04-26-2025 End: 04-26-2025 ambulatory Linden Chavez Facility:[facility] Start: 04-23-2025 End: 04-23-2025 ambulatory No Primary Care Physician -Laboratory [facility] Start: 04-23-2025 End: 04-23-[address] Linden Chavez DO -Laboratory [facility] Start: 04-23-2025 End: 04-23-2025 Dr. Linden Chavez DO -Laboratory [facility] Start: 04-23-2025 End: 04-23-2025 ambulatory Linden Chavez Facility:[facility] Start: 04-21-2025 End: 04-21-2025 Dr. Ar Calle MD -Emergency Departmen t Work Phone: Start: 04-21-2025 End: 04-21-2025 Emergency department patient visit No Primary Care Physician -Emergency Department Work Phone: Start: 03-26-2025 End: 03-26-2025 Dr. Buster Pereyra DO -Emergency Departia nt Work Phone: Start: 03-26-2025 End: 03-26-2025 Emergency department patient visit Dr. Pedro Krishnan DO Work Phone: -Emergency Department Work Phone: Start: 02-16-2025 End: 02-16-2025 Dr. Linden Chavez DO Work Phone: -Emergency Department Work Phone: Start: 02-16-2025 End: 02-16-2025 Emergency department patient visit Dr. Linden Chavez DO Work Phone: [facility] Work Phone: Start: 12-26-2024 End: 12-27-2024 Dr. Panchito Yun -Emergency Departmen t Work Phone: Start: 12-26-2024 End: 12-27-2024 Emergency department patient visit Dr. Panchito Yun -Emergency Department Work Phone: Start: 12-20-2024 End: 12-20-2024 Dr. Avni Cash MD -Emergency Departmen t Work Phone: Start: 12-20-2024 End: 12-20-2024 Emergency department patient visit Dr. Avni Cash MD -Emergency Department Work Phone: Start: 12-14-2024 End: 12-14-2024 ambulatory Facility:[facility] Start: 12-14-2024 End: 12-14-2024 Patient encounter procedure Ion Alfaro PROJECT LEADER.HYDROELECTRIC COMPONENT MACHINIST Work Phone: [facility] Comment on above: Eustachian tube dysf [...] Phone: Start: 10-29-2024 End: 10-30-2024 Johann Lemons -Emergency Departmen t Work Phone: Start: 10-29-2024 End: 10-30-2024 Emergency department patient visit Johann Bigler Facility:[facility] Start: 10-19-2024 End: 10-19-2024 Dr. Live Ashley MD -Emergency Department Work Phone: Start: 10-19-2024 End: 10-19-2024 Emergency department patient visit Live Ashley Facility:[facility] Start: 08-10-2024 End: 08-10-2024 Emergency department patient visit Adam Allen Facility:[facility] Start: 05-10-2024 End: 05-10-2024 ambulatory Facility:[facility] Start: 05-10-2024 End: 05-10-2024 Patient encounter procedure Rosa Quinones APRN.HYDROELECTRIC COMPONENT MACHINIST Work Phone: [facility] Comment on above: Bilateral impacted c francie (Primary Dx) Start: 03-09-2024 End: 03-09-2024 Emergency department patient visit [facility]-Emergency Department Work Phone: Start: 03-08-2024 End: 03-08-2024 Emergency department patient visit [facility]-Emergency Department Work Phone: Start: 02-07-2024 End: 02-08-2024 Emergency department patient visit [facility]-Emergency Department Work Phone: Start: 01-26-2024 End: 01-27-2024 Emergency department patient visit [facility]-Emergency Department Work Phone: Start: 01-05-2024 End: 01-05-2024 ambulatory [facility] Work Phone: Start: 01-05-2024 End: 01-05-2024 Patient encounter procedure [facility]-Mike Freed [facility] Start: 12-25-2023 End: 12-25-2023 Emergency department patient visit [facility]-Emergency Department Work Phone: Start: 12-18-2023 End: 12-18-2023 Emergency department patient visit [facility]-Emergency Department Work Phone: Start: 12-08-2023 End: 12-08-2023 Emergency department patient visit [facility]-Emergency Department Work Phone: Start: 11-22-2023 End: 11-22-2023 Emergency department patient visit [facility]-Emergency Department Work Phone: Start: 09-30-2023 End: 10-01-2023 [facility] Start: 09-29-2023 End: 09-29-2023 [facility] Start: 08-26-2023 End: 08-26-2023 [facility] Start: 08-18-2023 End: 08-18-2023 Office outpatient visit 15 minutes Jimmy Rachel PROJECT LEADER.HYDROELECTRIC COMPONENT MACHINIST Work Phone: [facility] Comment on above: Bilateral impacted c erumen (Primary Dx) Start: 07-29-2023 End: 07-29-2023 [facility] Start: 05-12-2023 End: 05-12-2023 Emergency department patient visit [facility]-Emergency Department Work Phone: Start: 03-07-2023 End: 03-07-2023 Emergency department patient visit [facility]-Emergency Department Start: 01-18-2023 End: 01-18-2023 Emergency department patient visit [facility]-Emergency Department Start: 12-15-2022 End: 12-15-2022 ambulatory [facility] Work Phone: Start: 12-15-2022 End: 12-15-2022 Patient encounter procedure [facility]-Mike Freed [facility] Start: 12-11-2022 End: 12-11-2022 Emergency department patient visit [facility]-Emergency Department Start: 12-10-2022 End: 12-10-2022 [facility] Start: 11-25-2022 End: 11-25-2022 Emergency department patient visit [facility]-Emergency Department Start: 10-29-2022 End: 10-30-2022 Emergency department patient visit [facility]-Emergency Department Start: 09-18-2022 End: 09-18-2022 Emergency department patient visit [facility]-Emergency Department Start: 08-07-2022 End: 08-07-2022 Emergency department patient visit [facility]-Emergency Department Start: 07-02-2022 End: 07-03-2022 Emergency department patient visit No Primary Care Physician [facility]-Emergency Department Start: 05-26-2022 End: 05-26-2022 Emergency department patient visit No Primary Care Physician [facility]-Emergency Department Start: 04-26-2022 End: 04-26-2022 Emergency department patient visit No Primary Care Physician [facility]-Emergency Department Start: 03-20-2022 Non-patient / Non-visit No Primary Care Physician [facility] Start: 03-19-2022 End: 03-20-2022 Evaluation and management of inpatient No Primary Care Physician [facility]-Medical Surgical 3 Start: 03-19-2022 Non-patient / Non-visit No Primary Care Physician [facility] Start: 03-02-2022 End: 03-02-2022 Emergency department patient visit No Primary Care Physician [facility]-Emergency Department Start: 01-31-2022 End: 01-31-2022 Emergency department patient visit No Primary Care Physician [facility]-Emergency Department Start: 01-08-2022 End: 01-08-2022 Emergency department patient visit No Primary Care Physician [facility]-Emergency Department Start: 01-07-2022 Non-patient / Non-visit No Primary Care Physician [facility] Start: 01-06-2022 Non-patient / Non-visit No Primary Care Physician [facility] Start: 01-06-2022 Non-patient / Non-visit No Primary Care Physician [facility] Start: 01-05-2022 Non-patient / Non-visit No Primary Care Physician [facility] Start: 01-05-2022 Non-patient / Non-visit No Primary Care Physician [facility] Start: 01-04-2022 Non-patient / Non-visit No Primary Care Physician [facility] Start: 01-04-2022 End: 01-07-2022 Evaluation and management of inpatient [facility] Start: 11-12-2021 End: 11-12-2021 Emergency department patient visit No Primary Care Physician [facility]-Emergency Department Start: 11-09-2021 End: 11-09-2021 Emergency department patient visit No Primary Care Physician [facility]-Emergency Department Start: 10-05-2019 End: 10-07-2019 Evaluation and management of inpatient Jocelyn Valentin Work Phone: [id number] Procedures Date Procedure Procedure Detail Performing Clinician Start: 05-29-2025 Urine microscopy: re d cells No Primary Care Physician Start: 05-29-2025 Urnls dip stick/tabl et reagent auto microscopy No Primary Care Physician Start: 05-29-2025 Blood count smear mc rscp w/mnl difrntl wbc count No Primary Care Physician Start: 05-29-2025 Estimated creatinine clearance No Primary Care Physician Start: 05-29-2025 Mean corpuscular hemoglobin concentration determination No Primary Care Physician Start: 05-29-2025 Nucleated red blood cell count procedure No Primary Care Physician Start: 05-29-2025 Platelet mean volume determination No Primary Care Physician Start: 05-29-2025 Triacylglycerol lipa se measurement No Primary Care Physician Start: 05-29-2025 Urine culture No Primar y Care Physician Start: 05-22-2025 Measurement of occul t blood in stool specimen using immunoassay No Primary Care Physician Start: 05-22-2025 Blood count smear mc rscp w/mnl difrntl wbc count No Primary Care Physician Start: 05-22-2025 Estimated creatinine clearance No Primary Care Physician Start: 05-22-2025 Mean corpuscular hemoglobin concentration determination No Primary Care Physician Start: 05-22-2025 Nucleated red blood cell count procedure No Primary Care Physician Start: 05-22-2025 Platelet mean volume determination No Primary Care Physician Start: 05-03-2025 Urine culture No Primar y Care Physician Start: 05-03-2025 Urine microscopy: re d cells No Primary Care Physician Start: 05-03-2025 Urnls dip stick/tabl et reagent auto microscopy No Primary Care Physician Start: 05-03-2025 Blood count smear mc rscp w/mnl difrntl wbc count No Primary Care Physician Start: 05-03-2025 Estimated creatinine clearance No Primary Care Physician Start: 05-03-2025 Mean corpuscular hemoglobin concentration determination No Primary Care Physician Start: 05-03-2025 Nucleated red blood cell count procedure No Primary Care Physician Start: 05-03-2025 Platelet mean volume determination No Primary Care Physician Start: 04-26-2025 Urine microalbumin/creatinine ratio measurement No Primary Care Physician Start: 04-26-2025 Urnls dip stick/tabl et reagent auto microscopy No Primary Care Physician Start: 04-23-2025 Assay of triglycerides No Primary Care Physician Start: 04-23-2025 Endomysial [...] HCV Quant by PCR testing - HCVPCR #[id number] Non Reactive: < 0.8 Equivocal: >/= 0.8 [...] be performed to confirm baseline values. Start: 04-23-2025 Total cholesterol:HD L ratio measurement No Primary Care Physician Start: 04-21-2025 X-ray of knee, four or more views No Primary Care Physician Start: 02-16-[address] Pedro Krishnan DO Work Phone: Start: 02-16-2025 Urine microscopy: re d cells No Primary Care Physician Start: 02-16-2025 Urnls dip stick/tabl et reagent auto microscopy Dr. Pedro Krishnan DO Work Phone: Start: 02-16-2025 Venous oxygen satura tion measurement No Primary Care Physician Start: 02-16-2025 X-ray of chest, PA a nd lateral views Dr. Linden Chavez DO Work Phone: Start: 02-16-2025 Blood count smear mc rscp w/mnl difrntl wbc count No Primary Care Physician Start: 02-16-[address] Pedro Krishnan DO Work Phone: Start: 02-16-2025 Mean corpuscular hemoglobin concentration determination No Primary Care Physician Start: 02-16-2025 Nucleated red blood cell count procedure No Primary Care Physician Start: 02-16-2025 Platelet mean volume determination No Primary Care Physician Start: 12-27-[address] Linden Chavez [...] use Jocelyn Homero Work Phone: Start: 10-06-2019 [facility] ENDOSCOPY REPORT 3m Scanning Start: 10-06-2019 Gluc bld gluc mntr d ev cleared fda spec home use Jocelyn Valentin Work Phone: Start: 10-06-2019 Gluc bld gluc mntr d ev cleared fda spec home use [employer] Work Phone: Start: 10-06-2019 Gluc bld gluc mntr d ev cleared fda spec home use Jocelyn Homero Work Phone: Start: 10-06-2019 Assay of magnesium [...] Work Phone: Start: 11-21-2013 Colonoscopy Jimmy justice PROJECT LEADER.HYDROELECTRIC COMPONENT MACHINIST Work Phone: Start: 06-22-2011 History of placement of stent for coronary artery disease S/P coronary artery stent placement Jimmy Rachel PROJECT LEADER.HYDROELECTRIC COMPONENT MACHINIST Work Phone: Bacteria identified in Blood by [...] DTaP,Tdap,Td Vaccine (2 - Td or Tdap) [facility] Start: 12-14-2025 BP Controlled (<130/80) BP Controlled (<130/80) [facility] Start: 06-14-2025 [facility] Start: 06-14-2025 Enteric precautions [facility] Start: 06-03-2025 [facility] Start: 05-30-2025 [facility] Start: 05-29-2025 [facility] Start: 05-29-2025 Enteric precautions [facility] Start: 05-29-2025 Bacteria identified in Urine by Culture Urine Culture [facility] Start: 05-22-2025 [facility] Start: 05-03-2025 Bacteria identified in Urine by Culture Urine Culture [facility] Start: 05-03-2025 End: 05-03-2025 [facility] Start: 04-21-2025 [facility] Start: 03-26-2025 [facility] Start: 02-16-2025 End: 02-16-2025 [facility] Start: 12-27-2024 [facility] Start: 12-20-2024 [facility] Start: 12-08-2024 [facility] Start: 11-27-2024 End: 11-27-2024 [facility] Start: 10-30-2024 [facility] Start: 10-19-2024 [facility] Start: 07-01-2024 Covid-19 Vaccine ( season) Covid-19 Vaccine ( season) [facility] Start: 07-01-2024 Influenza vaccination Influenza Vaccine (#1) [facility] Start: 03-09-2024 [facility] Start: 03-08-2024 [facility] Start: 02-08-2024 [facility] Start: 01-27-2024 [facility] Start: 12-25-2023 End: 12-25-2023 [facility] Start: 12-18-2023 [facility] Start: 12-08-2023 [facility] Start: 11-22-2023 [facility] Start: 10-31-2023 Behavioral Health Screening Behavioral Health Screening [facility] Start: 10-01-2023 [facility] Start: 09-29-2023 [facility] Start: 09-29-2023 [facility] Start: 08-26-2023 [facility] Start: 07-01-2023 Covid-19 Vaccine ( season) Covid-19 Vaccine ( season) [facility] Start: 07-01-2023 Influenza vaccination Influenza Vaccine (#1) [facility] Start: 01-18-2023 Enteric precautions [facility] Start: 10-31-2022 Depression Assessment Depression Assessment [facility] Start: 10-29-2022 [facility] Start: 08-07-2022 Iv infusion hydration initial 31 min-1 hour HYDRATION IV INFUSION INIT [facility] Start: 04-26-2022 Electrocardiographic procedure [facility] Work Phone: Start: 03-20-2022 Patient discharge [facility] Work Phone: Start: 03-20-2022 Referral to occupational therapist [facility] Work Phone: Start: 03-20-2022 Referral to service [facility] Work Phone: Start: 03-19-2022 Ambulation without limitation [facility] Work Phone: Start: 03-19-2022 Assessment of risk of venous thromboembolism [facility] Work Phone: Start: 03-19-2022 Insertion of catheter into peripheral vein [facility] Work Phone: Start: 03-19-2022 Oxygen therapy [facility] Work Phone: Start: 03-19-2022 Providing care according to standard [facility] Work Phone: Start: 03-19-2022 [facility] Work Phone: Start: 03-19-2022 Admission procedure [facility] Work Phone: Start: 03-19-2022 Following clinical pathway protocol [facility] Work Phone: Start: 03-19-2022 Bacteria identified in Blood by Culture Blood Culture [facility] Work Phone: Start: 03-19-2022 Bacteria identified in Urine by Culture Urine Culture [facility] Work Phone: Start: 03-19-2022 Urine culture Urine Culture [facility] Work Phone: Start: 03-19-2022 Patient referral to dietitian [facility] Work Phone: Start: 03-02-2022 Enteric precautions [facility] Work Phone: Start: 01-07-2022 Patient discharge [facility] Work Phone: Start: 01-06-2022 Care regimes management [facility] Work Phone: Start: 01-06-2022 Notification of physician [facility] Work Phone: Start: 01-06-2022 [facility] Work Phone: Start: 01-04-2022 Following clinical pathway protocol [facility] Work Phone: Start: 01-04-2022 Ambulation without limitation [facility] Work Phone: Start: 01-04-2022 Assessment of risk of venous thromboembolism [facility] Work Phone: Start: 01-04-2022 Insertion of catheter into peripheral vein [facility] Work Phone: Start: 01-04-2022 Oxygen therapy [facility] Work Phone: Start: 01-04-2022 Providing care according to standard [facility] Work Phone: Start: 01-04-2022 Referral to gastroenterology service [facility] Work Phone: Start: 01-04-2022 [facility] Work Phone: Start: 01-04-2022 Catheterization of vein [facility] Work Phone: Start: 01-04-2022 Admission procedure [facility] Work Phone: Start: 01-04-2022 Egd transoral biopsy single/multiple EGD BIOPSY SINGLE/MULTIPLE [facility] Work Phone: Start: 01-04-2022 Egd transoral control bleeding any method EGD CONTROL BLEEDING ANY [facility] Work Phone: Start: 01-04-2022 Enteric precautions [facility] Work Phone: Start: 01-04-2022 Patient referral to dietitian [facility] Work Phone: Start: 05-13-2021 Glaucoma screening Dilated Retinal Exam [facility] Start: 05-13-2021 Hepatitis C antibody, confirmatory test Dilated Retinal Exam [facility] Start: 11-08-2020 Annual PCP Team Chronic Disease Visit Annual PCP Team Chronic Disease Visit [facility] Start: 10-06-2020 Creatinine monitoring Creatinine monitoring [place], [place] Start: 10-06-2020 Potassium monitoring Potassium monitoring [place], [place] Start: 2020 Hepatitis B Vaccine (1 of 3 - Risk 3-dose series) Hepatitis B Vaccine (1 of 3 - Risk 3-dose series) [facility] Start: 2020 RSV Vaccine (1 - 1-dose 60+ series) RSV Vaccine (1 - 1-dose 60+ series) [facility] Start: 2020 RSV Vaccine (1 - Risk 60-74 years 1-dose series) RSV Vaccine (1 - Risk 60-74 years 1-dose series) [facility] Start: 02-17-2020 3 comp foot exam completed Diabetic Foot Exam [facility] Start: 02-17-2020 Diabetic foot examination Diabetic Foot Exam [facility] Start: 07-14-2019 Hepatitis B screening Urine Albumin:Creatinine Ratio [facility] Start: 07-14-2019 Hepatitis B surface antibody level LDL Cholesterol [facility] Start: 07-01-2019 Influenza vaccination Flu vaccine (#1) [place], [place] Start: 06-06-2019 Hemoglobin A1c measurement HbA1C [facility] Start: 06-06-2019 Hemoglobin A1c/Hemoglobin.total in Blood HbA1C [facility] Start: 11-21-2018 Colonoscopy Colonoscopy [facility] Start: 11-21-2018 Colorectal Cancer Screening Colorectal Cancer Screening [facility] Start: 11-21-2018 Screening for malignant neoplasm of colon [facility] Start: 2015 Prostate Cancer Screening Discussion Prostate Cancer Screening Discussion [facility] Start: 2015 Prostate specific antigen measurement Prostate Cancer Screening Discussion [facility] Start: 06-08-2014 Fecal Occult Blood Fecal Occult Blood [facility] Start: 06-08-2014 Screening for malignant neoplasm of colon Fecal Occult Blood [facility] Start: 07-22-2012 Pneumococcal vaccination [facility] Start: 07-22-2012 Pneumococcal Vaccine: 50+ (2 of 2 - PCV) Pneumococcal Vaccine: 50+ (2 of 2 - PCV) [facility] Start: 2010 Colon cancer screen colonoscopy Colon cancer screen colonoscopy [place], [place] Start: 2010 Shingles Vaccine (1 of 2) Shingles Vaccine (1 of 2) [place], [place] Start: 2010 Shingrix Vaccine (1 of 2) Shingrix Vaccine (1 of 2) [facility] Start: 2005 Cologuard (FIT-DNA) Cologuard (FIT-DNA) [facility] Start: [address] Colonography [facility] Start: 2005 Screening for malignant neoplasm of colon [facility] Start: 2005 Sigmoidoscopy Sigmoidoscopy [facility] Start: 2000 Diabetes screen Diabetes screen [place], [place] Start: 1978 Annual PCP Team Chronic Disease Visit Annual PCP Team Chronic Disease Visit [facility] Start: 1978 Anxiety Screening Anxiety Screening [facility] Start: 1978 BP Controlled (<130/80) BP Controlled (<130/80) [facility] Start: 1978 Depression Screening Depression Screening [facility] Start: 1978 HIV Screening HIV Screening [facility] Start: 1978 HIV screening HIV Screening [facility] Start: 1975 HIV screen HIV screen [place], [place] Start: 1971 DTaP/Tdap/Td vaccine (1 - Tdap) DTaP/Tdap/Td vaccine (1 - Tdap) [place], [place] Start: 1970 Lipid screen Lipid screen [place], [place] Start: 1960 Hepatitis C screen Hepatitis C screen [place] Acetone [Presence] i n Serum or Plasma [facility] Amphetamine [Mass/vo lume] in Urine [facility] Benzodiazepine measu rement, urine [facility] Bilirubin measurement, urine [facility] C. difficile DNA Amplification C. difficile DNA Amplification [facility] Clostridioides diffi cile DNA [Presence] in Unspecified specimen by IOANA with probe detection [facility] Clostridioides diffi cile DNA [Presence] in Unspecified specimen by IOANA with probe detection [facility] Cocaine measurement, urine [facility] Gastrointestinal pat hogens panel - Stool by IOANA with probe detection [facility] Hemoglobin [Presence ] in Urine [facility] Initiate Oxygen Ther apy Protocol Initiate Oxygen Therapy Protocol Respiratory Care Routine Daily until discontinued starting 10/05/2019 [place], [place] Comment on above: Daily until discontinued starting 2018 Lactoferrin [Presenc e] in Stool by Immunoassay [facility] Measurement of 3,4-methylenedioxymethampheta mine in urine [facility] Measurement of keton es in urine using dipstick [facility] Methadone measurement, urine [facility] Microscopic urinalysis [facility] Ova and parasites id entified in Unspecified specimen by Light microscopy [facility] Patient Education [facility] Work Phone: Patient referral [facility] Work Phone: pH of Urine [facility] pH of Urine [facility] Phencyclidine [Prese nce] in Urine [facility] POCT Glucose [facility] [place] Comment on above: As Needed until discontinued starting 4X Daily (AC & HS) u ntil discontinued starting 10/06/2019 Removal impacted cer umen irrigation/lvg unilat AMBULATORY EAR LAVAGE/IRRIGATION Procedures Routine Bilateral impacted cerumen Ordered: 05/10/2024 [facility] Work Phone: Comment on above: Ordered: 05/10/2024 Specific gravity of Urine [facility] Urinalysis, blood, qualitative [facility] Urine barbiturate measurement [facility] Urine cannabinoid measurement [facility] Urine culture [facility] Urine culture [facility] Urine culture [facility] Urine dipstick for glucose [facility] Urine dipstick for l eukocyte esterase [facility] Urine dipstick for nitrite [facility] Urine dipstick for protein [facility] Urine examination [facility] Urine microscopy: ep ithelial cells [facility] Urine Microscopy: white cells [facility] Urine opiate measurement [facility] Urobilinogen [Presen ce] in Urine [facility] Immunizations Immunization Date Immunization Notes Care Provider Fa cility 11-07-2021 Covid (Pfizer) No Primary Ca re Physician [facility] 04-23-2021 Covid (Moderna) No Primary C are Physician [facility] 03-26-2021 Covid (Moderna) No Primary C are Physician [facility] 11-08-2019 influenza virus vacc ine, unspecified formulation Jimmy Ramos APRN.CNP Work Phone: [facility] 08-08-2012 tetanus and diphther ia toxoids, adsorbed, preservative free, for adult use (2 Lf of tetanus toxoid and 2 Lf of diphtheria toxoid) Jimmy Ramos PROJECT LEADER.HYDROELECTRIC COMPONENT MACHINIST Work Phone: [facility] 07-22-2011 pneumococcal polysaccharide vaccine, 23 valent Jimmy Ramos PROJECT LEADER.HYDROELECTRIC COMPONENT MACHINIST Work Phone: [facility] Payers Date Payer Category Payer Self-pay [id number] 2025 Medicare [id number] 2024 Self-pay [id number] 2023 Private Health Insurance [facility] [id number] 2023 Unknown [id number] 2022 Medicaid [id number] 2013 Unknown [id number] 2013 Unknown [id number] Unknown [id number] [id number]. 462 Unknown [id number] 2.16840.1.794075.3.579.2. 462 Unknown [id number] 2.16840.1.165479.3.579.2. 462 Unknown [id number] 2.16840.1.938973.3.579.2. 462 Unknown [id number] 2.16.840.1.539521.3.579.2. 462 Unknown [id number] 2.16.840.1.218399.3.579.2. 462 Unknown [id number] 2.16.840.1.781418.3.579.2. 462 Unknown [id number] 2.16.840.1.380487.3.579.2. 462 Unknown [id number] 2.16.840.1.719232.3.579.2. 462 Unknown [id number] 2.16.840.1.055000.3.579.2. 462 Unknown [id number] 2.16.840.1.301562.3.579.2. 462 Unknown [id number] 2.16.840.1.446202.3.579.2. 462 Unknown [id number] 2.16840.1.843228.3.579.2. 462 Unknown [id number] 2.16.840.1.861680.3.579.2. 462 Unknown [id number] 2.16.840.1.517246.3.579.2. 462 Unknown [id number] 2.16840.1.131944.3.579.2. 462 Unknown [id number] 2.16840.1.902210.3.579.2. 462 Unknown [id number] 2.16840.1.989987.3.579.2. 462 Unknown [id number] 2.16840.1.813774.3.579.2. 462 Social History Date Type Detail Facility Start: 10-06-2019 End: 06-14-2025 Tobacco smoking status NHIS Never smoker [facility] Start: 10-06-2019 Alcohol intake Ex-drinker (finding) [place], [place] Start: 10-06-2019 Alcohol Comment Last drinking 1993, Hx EtOH 10 years, never attended AA program [place], [place] Start: 1960 Sex Assigned At Not on file M [facility] Start: 03-02-2022 End: 03-09-2024 Tobacco smoking status NHIS Unknown if ever smoked [facility] Start: 05-16-2021 Rare [facility] Start: 11-25-2020 None [facility] Start: 11-24-2020 Alone [facility] Start: 05-16-2021 Non-smoker [facility] Start: 1960 Sex Assigned At Male [facility] Start: 08-18-2023 Tobacco use and exposure Former smokeless tobacco user [facility] End: 07-01-1978 History of tobacco use User of smokeless tobacco [facility] Start: 08-18-2023 End: 12-14-2024 Alcohol intake Current non-drinker of alcohol (finding) [facility] Start: 10-05-2020 End: 08-18-2023 History of Social function [facility] Start: 10-05-2020 End: 08-18-2023 Tobacco use panel [facility] Adult Depression Screening Assessment 5 [facility] Start: 08-18-2023 Tobacco Comment Quit when he s wallowed a wad of chew playing baseball! [facility] Start: 02-16-2025 Sex Male (finding) [facility] Medical Equipment Procedure Code Equipment Code Equipment Origin al Text Equipment Identifier Dates [id number], [id number] Start: 09-16-2017 Comment on above: Test blood sugar(s) 4 times daily. Dx: 250.02. InsulinDependent: Yes Use once daily with Lantus Goals Date Patient Goal Desired Activity /State Functional Status Date Assessment Result Facility 03-20-2022 Functional status Up ad hailee [facility] Work Phone: 01-07-2022 Functional status Ambulates [facility] Work Phone: 03-17-2015 Are you deaf, or do you have serious difficulty hearing No 03/17/2015 2:45 PM EDT Chantelle Jarrett Ma No [facility] 03-17-2015 Are you blind, or do you have serious difficulty seeing, even when wearing glasses No 03/17/2015 2:45 PM EDT Chantelle Jarrett Ma No [facility] 03-17-2015 Do you have serious difficulty walking or climbing stairs No 03/17/2015 2:45 PM EDT Chantelle Jarrett Ma Jaki No [facility] 03-17-2015 Do you have difficul ty dressing or bathing No 03/17/2015 2:45 PM EDT Chantelle Jarrett Ma No [facility] 03-17-2015 Because of a physica l, mental, or emotional condition, do you have difficulty doing errands alone such as visiting a physician's office or shopping No 03/17/2015 2:45 PM EDT Chantelle Jarrett Ma No [facility] Mental Status Date Assessment Result Facility 05-22-2025 Cognitive function Awake;Alert;A ppropriate;Fol lows Commands [facility] Work Phone: 02-16-2025 Cognitive function Follows Commands;Drows y [facility] Work Phone: 12-08-2024 Cognitive function Awake;Alert;Appropriat e [facility] Work Phone: 10-30-2024 Cognitive function Awake;Alert;Appropriat [facility] Work Phone: 10-19-2024 Cognitive function Awake;Alert;A ppropriate;Fol lows Commands [facility] Work Phone: 02-07-2024 Cognitive function Level Of Cons ciousness Awake;Alert;Appropriate;Fol lows Commands [facility] Work Phone: 01-26-2024 Cognitive function Level Of Cons ciousness Awake;Alert;Appropriate;Fol lows Commands [facility] Work Phone: 12-25-2023 Cognitive function Level Of Cons ciousness Awake;Alert;Appropriate;Fol lows Commands [facility] Work Phone: 12-08-2023 Cognitive function Level Of Cons ciousness Awake;Alert;Appropriate;Fol lows Commands [facility] Work Phone: 11-22-2023 Cognitive function Level Of Cons ciousness Awake;Alert;Follows Commands [facility] Work Phone: 07-29-2023 Cognitive function Level Of Cons ciousness Awake;Alert;Appropriate;Fol lows Commands [facility] Work Phone: 12-10-2022 Cognitive function Level Of Cons ciousness Awake;Alert;Appropriate;Fol lows Commands [facility] Work Phone: 10-30-2022 Cognitive function Level Of Cons ciousness Awake;Alert;Appropriate;Fol lows Commands;Drowsy [facility] Work Phone: 08-07-2022 Cognitive function Level Of Cons ciousness Awake;Alert;Appropriate;Fol lows Commands [facility] Work Phone: 03-20-2022 Cognitive function Level Of Cons ciousness Drowsy [facility] Work Phone: 03-19-2022 Cognitive function [facility] Work Phone: 03-19-2022 Cognitive function Level Of Cons ciousness Awake;Appropriate;Follows Commands [facility] Work Phone: 01-06-2022 Cognitive function Voice/Name [facility] Work Phone: 03-17-2015 Because of a physica l, mental, or emotional condition, do you have serious difficulty concentrating, remembering, or making decisions No 03/17/2015 2:45 PM EDT Luiza Herrmann, Chantelle Pollack No [facility] Clinical Notes 10-13-2015 to 06-03-2025 Note Date & Type Note Facility 06-03-2025 Hospital Discharge instructions Additional Instructions Your history and exam indicate you have functional diarrhea. This is not due to an infection but it is due to gastric irritation from certain foods that you eat. Please try to avoid a large amount of hot dogs in the future as this is what caused symptoms on June 03 as well as today. You can use his Lomotil as directed to help control diarrhea. Please still follow-up with gastroenterology to discuss need for potential colonoscopy to further assess for other causes of your symptoms. Return to the ER should you have any further concerns [facility] Work Phone: 06-03-2025 Hospital Discharge instructions Additional Instructions Please take the Lomotil anywhere from 1-4 times a day to help prevent further episodes of diarrhea. Keep yourself well-hydrated. Follow-up with ssds mk [address] Obregon to discuss testing for potential food allergens or other causes of your diarrhea. Return to the ER should you have any further concerns [facility] Work Phone: 05-30-2025 Discharge summary [facility] 05-29-2025 Discharge summary Note Date/Time May 30, 2025 12:17am [facility] Medical Records Department [address] [place] [address] Emergency Department Summary 05/29/25 MR#: [id number] Acct: [id number] Name: JERALD YODER Rep #:[id number] : [...] the ER over the past 6 months. [facility] Medical History Partial traumatic amputation [...] t abs 05/22/25 Unknown Rx release (Protonix) cppdba-rqnlaomy-nymxpfa 1 cap PO TID 05/23/25 Unknow n [...] % (Auto) 60.2 Lymph % (Auto) 23.1 Evangeline % (Auto) 9.6 Eos % (Auto) 5.9 [...] Referrals: Linden Chavez, [Primary Care Provider] - Activity Restrictions/Additional Instructions: Avoid eating overly heavy meals. Your lab work and vital signs were normal today. Per the GI office notes if you eat a heavy meal you should actually take 3 capsules of your Creon. You should have 2 capsules with snacks and 1 capsule of beverages that contain calories. Print Language: [place] Disposition Disposition: Home, Self Care What to do if you have Problems For any increased pain, shortness of breath, bleeding, nausea or vomiting, chestpain, or any unexpected problems, contact your Primary Care Provider. Call [facility] ([phone]) or report to the closest Emergency Room. Call 911 if necessary. 05/29/25 2326 <Electronically signed by Antonette Dominguez DO> Cosigner Signature (if applicable): CC: Dr. Linden Chavez DO ~ Signed ADDENDUM by Dr. Antonette Dominguez DO on 05/29/25 at 2330 EKG reviewed by emergency medicine physician Normal sinus rhythm rate 77 bpm Left axis deviation Normal intervals Normal ST segment 05/29/25 2330<Electronically signed by Antonette Dominguez DO> Cosigner Signature [...] cc: Dr. Linden Chavez DO ~* Signed [facility] Work Phone: 1(377) 368-639907-24-2025 Evaluation note* Diagnosis Onset Date Resolution Status Admit Date Diarrhea inactive May 23 11:09am [facility] Work Phone: 1(317) 430-442106-22-2025 Discharge summary [facility] Medical Records Department [address] [place] [address] Emergency Department Summary 04/21/25 MR#: [id number] Acct: [id number] Name: JERALD YODER Rep #:[id number] : [...] 100 mcg tablet 100 mcg PO DAILY 11/30/23 Unknown History cyclobenzaprine 10 mg tablet 10 [...] his right and left leg and feet. Ragland Coma Scale: document GCS findings Spontaneous Obeys [...] IMPRESSION: No acute process detected. Reading [facility] Treatment and Re-Evaluation Narrative: Patient was formed of his x-ray results. Patient was informed that his pain andnumbness is due to his diabetic neuropathy. He was started on gabapentin. He was instructed to follow-up with his doctorfor dose adjustments. Discharge Plan Triage Chief Complaint: Fall ED Provider: Ar Calle Dx/Rx/DC Orders Clinical Impression: Contusion of left knee, initial encounter, Coronary atherosclerosis of chilkat coronary artery, Essential hypertension, HLD (hyperlipidemia), History [...] is located on your insurance card [facility] by [facility] Print Language: [place] Disposition Disposition: Home, Self Care What to do if you have Problems For any increased pain, shortness of breath, bleeding, nausea or vomiting, chestpain, or any unexpected problems, contact your Primary Care Provider. Call [facility] ([phone]) or report tothe closest Emergency Room. Call 911 if necessary. 04/21/25 1309 Cosigner Signature (if applicable): CC: No Primary Care Physician ~ Signed [facility]06-22-2025 Radiology Diagnostic study note [facility] Imaging Services [address] [place] [address] Knee 4 or More Views MR#: [id number] Acct: [id number] Name: JERALD YODER Rep #: [id number] : 1960 M 65 From: Pet er Peer DO PCP: Care Physician,No Primary Status: REG ER Study:Knee 4 or More Views Date of Exam: 04/21/25 Exam# [id number] Ordering Dr: Zuleyka Calle MD PROCEDURE: KNEE 4 OR MORE VIEWS 04/21/2025 REASON FOR EXAM: INJURY/PAIN Initial encounter TECHNIQUE: KNEE 4 OR MORE VIEWS COMPARISON: None. FINDINGS: Bones: No fracture. No dislocation. Joints: Cartilage thinning and periarticular osteophytes indicate osteoarthritis Effusion: None. Soft tissues: Unremarkable Other: RAD/Knee 4 or More Views IMPRESSION: No acute process detected. Reading Location: [facility] CC: Dr. Ar Calle MD; No Primary Care Physician ~ Transitional Living Specialist: Signed [facility]04-19-2025 Radiology [facility] NoteHNO ID: [id number] Author: ION ALFARO APRN.HYDROELECTRIC COMPONENT MACHINIST Service: ? Author Type: Nurse Practitioner Type: [...] - CETIRIZINE 10 MG TABLET Ion Alfaro APRN.[facility] History of Present illness Narrative* Ion Alfaro APRN.TAMY - 12/14/2024 9:32 AM EST This note was created using NoteWriter. Subjective [...] - CETIRIZINE 10 MG TABLET Ion Alfaro APRN.HYDROELECTRIC COMPONENT MACHINIST [facility] Nurse Note* Cristina Dominguez - 05/10/2024 8:10 PM EDT Ambulatory Ear Lavage Pre-treatment: Warm water Treatment: Both ears Equipment and Irrigation solution and Volume used: Single use syringe with single use irrigation tip Return flow appearance: Brown Patient tolerated procedure: yes Tympanic membrane assessment: Tympanic membrane assessed by LIP pre-procedure Josef Lee APRN [facility]07-11-2024 Nurse Note* Cristina Dominguez - 05/10/2024 8:10 PM EDT Ambulatory Ear Lavage Pre-treatment: Warm water Treatment: Both ears Equipment and Irrigation solution and Volume used: Single use syringe with single use irrigation tip Return flow appearance: Brown Patient tolerated procedure: yes Tympanic membrane assessment: Tympanic membrane assessed by LIP pre-procedure Josef Lee APRN documented in [facility]-2024 NoteHNO ID: [id number] Author: ROSA QUINONES APRN.HYDROELECTRIC COMPONENT MACHINIST Service: ? Author Type: Nurse Practitioner Type: Progress Notes Filed: 05/11/2024 08:47 Note Text: This note was created using [employer] Medical[employer]. Subjective Jerald Yoder is a 64 year [...] or chills Denies using 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 Requesting ear irrigation. The history is provided by the patient. No language path was used. Ear Problem There is pain [...] rhinorrhea and sore throat. (more content not included)...[facility]07-11-2024 History of Present illness Narrative* Rosa Quinones APRN.[facility] - 05/10/2024 7:47 PM EDT This note was created using [employer]. Subjective Jerald Yoder is a 64 year [...] or chills Denies using 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 Requesting ear irrigation. The history is provided by the patient. No language path was used. Ear Problem There is pain [...] normal. - AMBULATORY EAR LAVAGE/IRRIGATION Rosa Quinones APRN.HYDROELECTRIC COMPONENT MACHINIST documented in [facility] Discharge summary Author Keenan Wu [facility] February 08, 2024 12:12am Note Date/Time February 07, 2024 9:10 pm [facility] Medical Records Department [address] [place] [address] Emergency Department Summary 02/07/24 MR#: [id number] Acct: [id number] Name: JERALD YODER Rep #:[id number] : [...] nausea or vomiting. Denies diarrhea or constipation. [facility] Medical History Back pain due [...] 73.2 H Lymph % (Auto) 17.4 L Evangeline % (Auto) 5.4 Eos % (Auto) 3.1 [...] Clarity Clear Urine pH 6.0 Ur Specific [place] 1.015 Urine Protein 15 H Urine Glucose [...] (Auto) Neut % (Auto) Lymph % (Auto) Evangeline % (Auto) Eos % (Auto) Baso % (Auto) Absolute Neuts (auto) Absolute Lymphs (auto) Nucleated RBC % Sodium Potassium Chloride Carbon Dioxide Anion Gap BUN Creatinine Estim Creat Clear Calc Est GFR (MDRD) Af Amer Est GFR (MDRD) Non-Af BUN/Creatinine Ratio Glucose Calcium Total Bilirubin AST ALT Alkaline Phosphatase Total Protein Albumin Globulin Albumin/Globulin Ratio Urine Color Urine Clarity Urine pH Ur Specific [place] Urine Protein Urine Glucose (UA) Urine Ketones [...] your Primary Care Provider. Call [facility] ([phone]) or report to the closest Emergency Room. Call 911 if necessary. 02/08/2411 <Electronically signed by Keenan Wu DO> Cosigner Signature (if applicable): CC: Dr. Linden Chavez DO ~ Signed [facility] Work Phone: 1(207) 315-458101-23-2024 Discharge summary Author Barry Mathew [facility] November 22, 2023 5:13pm Note Date/Time November 22, 2023 3 :08pm [facility] Medical Records Department [address] [place] [address] Emergency Department Summary 11/22/23 MR#: [id number] Acct: [id number] Name: JERALD YODER Rep #:[id number] : [...] states that while he was at his uphptjb-ja-ibj's, he felt weak and fell, but did not hurt himself. He presents via EMS with generalized weakness. He states he has been eating and drinking well, to the point where he had 4 hotdogs prior to arrival. He denies any chestpain or shortness of breath. No exacerbating or alleviating factors. [facility] Medical History Back pain due [...] U-100 Insulin) 10 unit subcut BID diabetes 05/20/22 [History Last Taken 03/18/22] ondansetron 4 mg [...] Oxygen Delivery Method Room Air Room Air [facility] Narrative Medical decision making narrative: In the [...] not feel that he requires observation. His xwvmewf-ay-jde is here. They are comfortable with discharge. [...] 70.9 H Lymph % (Auto) 18.9 L Evangeline % (Auto) 5.0 Eos % (Auto) 4.5 [...] Sl. Cloudy Urine pH 5.0 Ur Specific [place] 1.020 Urine Protein 15 H Urine Glucose [...] your Primary Care Provider. Call [facility] ([phone]) or report to the closest Emergency Room. Call 911 if necessary. 11/22/231712 <Electronically signed by Barry Mathew MD> Cosigner Signature (if applicable): CC: Dr. Linden Chavez, ~ Signed [facility] Work Phone: 1(175) 104-157911-30-2023 Discharge summary Author [facility] September 29, 2023 11:33pm Note Date/Time September 29, 2023 9:05pm [facility] Medical Records Department [address] [place] [address] Emergency Department Summary 09/29/23 MR#: [id number] Acct: [id number] Name: JERALD YODER Rep #:[id number] : 1960 63 From: Barry Mathew MD PCP: Dr. Linden Chavez DO Status:REG ER Location: ED HPI History of Present Illness Chief Complaint: Nausea/Vomiting/Diarrhea Narrative Narrative: 63-year-old male past medical history of hypertension, presents with nausea and diarrhea that he has had for the last 5 hours. He states he ate at the [employer] and had a salad with 6 ranch [...] No chest pain or shortness of breath. [facility] Medical History Back pain due [...] 78.5 H Lymph % (Auto) 13.5 L Evangeline % (Auto) 5.2 Eos % (Auto) 1.7 [...] your Primary Care Provider. Call [facility] ([phone]) or report to the closest Emergency Room. Call 911 if necessary. 09/29/232332 <Electronically signed by Barry Mathew MD> Cosigner Signature (if applicable): CC: Dr. Linden Chavez DO ~ Signed [facility] Work Phone: [phone]) 255-775410-19-2023 History of Present illness Narrative* Jimmy Ramos, SANDRA.HYDROELECTRIC COMPONENT MACHINIST - 08/18/2023 4:12 PM EDT Subjective HPI [...] of care. This note was generated using [employer] software. It may contain errors in wording, punctuation, or spelling. Jimmy Ramos APRN.HYDROELECTRIC COMPONENT MACHINIST documented in [facility] Wu [facility] December 11, 2022 9:32pm Note Date/Time December 11, 2022 4:55pm [facility] Medical Records Department [address] [place] [id number] Emergency Department Summary 12/11/22 MR#: [id number] Acct: [id number] Name: JERALD YODER Rep #:[id number] : [...] Hassan but has not made an appointment. [facility] Medical History Back pain due [...] % (Auto) 67.1 Lymph % (Auto) 22.4 Evangeline % (Auto) 6.1 Eos % (Auto) 3.4 [...] Color Urine Clarity Urine pH Ur Specific [place] Urine Protein Urine Glucose (UA) Urine Ketones [...] (Auto) Neut % (Auto) Lymph % (Auto) Evangeline % (Auto) Eos % (Auto) Baso % [...] Clarity Clear Urine pH 6.0 Ur Specific [place] 1.015 Urine Protein 15 H Urine Glucose [...] 17:32 EST Reading Location ID and State: [address] [place] [address] Tel [phone], Service support , Discharge Plan Triage Chief [...] Referrals: Linden Chavez DO [Med Staff - Roller Coaster Engineer] - As soon as possible Disposition Disposition: Home, Self Care What to do if you have Problems For any increased pain, shortness of breath, bleeding, nausea or vomiting, chestpain, or any unexpected problems, contact your Primary Care Provider. Call [facility] ([phone]) or report to the closest Emergency Room. Call 911 if necessary. 12/11/222131 <Electronically signed by Keenan Wu DO> Cosigner Signature (if applicable): CC: Dr. Iván Hassan MD ~ Signed [facility] Work Phone: [phone]) 531-865301-26-[address] Calle [facility] November 25, 2022 3:03pm Note Date/Time November 25, 2022 1 :30pm [facility] Medical Records Department [address] [place] [address] Emergency Department Summary 11/25/22 MR#: [id number] Acct: [id number] Name: JERALD YODER Rep #:[id number] : [...] infectious symptoms. He denies chest pain, dyspnea, [place] exertion, orthopnea PND. He does endorse crampy [...] Plan Triage Chief Complaint: Nausea/Vomiting/Diarrhea ED Provider: Zuleyka Calleo Dx/Rx/DC Orders Clinical Impression: Abdominal pain, vomiting, [...] your Primary Care Provider. Call [facility] ([phone]) or report to the closest Emergency Room. Call 911 if necessary. 11/25/22 4880 <Electronically signed by Ar Calle MD> Cosigner Signature (if applicable): CC: No Primary Care Physician ~ Signed [facility] Work Phone: [phone]) 835-616912-14-2015 History of Past illness Narrative* Problem Noted Date Diagnosed Date Resolved Date Ankle fracture, left 10/13/2015 017 COPD (chronic obstructive pulmonary disease) 1 11/17/2019 documented as of this encounter (statuses as of 08/18/2023) [facility]. Chavez [facility] January 18, 2023 9:52am Note Date/Time January 18, 2023 8:1 7am [facility] Medical Records Department [address] [place] [address] Emergency Department Summary 01/18/23 MR#: [id number] Acct: [id number] Name: JERALD YODER Rep #:[id number] : 1960 62 From: Bernard Chavez MD PCP: Dr. Linden Chavez, Status:REG ER [...] he feels lightheaded when he stands up. [facility] Medical History Back pain due [...] history of alcohol abuse. Medications: Reviewed in [employer], the nurse had just gone over them [...] 71.9 H Lymph % (Auto) 18.0 L Evangeline % (Auto) 6.8 Eos % (Auto) 2.6 [...] your Primary Care Provider. Call [facility] ([phone]) or report to the closest Emergency Room. Call 911 if necessary. 01/18/23 0952 <Electronically signed by Bernard Chavez MD> Cosigner Signature (if applicable): CC: Dr. Linden Chavez DO ~ Signed [facility] Work Phone: Discharge summary Author [facility] March 08, 2024 8:59am Note Date/Time March 08, 2024 8:14am [facility] Medical Records Department [address] [place] [address] Emergency Department Summary 03/08/24 MR#: [id number] Acct: [id number] Name: JERALD YODER Rep #:[id number] : [...] therefore comes to the hospital for evaluation. [facility] Medical History Back pain due [...] % (Auto) 65.4 Lymph % (Auto) 22.8 Evangeline % (Auto) 6.9 Eos % (Auto) 3.9 [...] 7:52 EDT Reading Location ID and State: [facility] / [place] , Service support , Acute abdominal series [...] your Primary Care Provider. Call [facility] ([phone]) or report to the closest Emergency Room. Call 911 if necessary. 03/08/24 0859 <Electronically signed by Johann Lemons DO> Cosigner Signature (if applicable): CC: Dr. Linden Chavez DO ~ Signed [facility] Work Phone: Discharge summary Author Ar Calle [facility] Note Date/Time April 21, 2025 1:09 pm [facility] Medical Records Department [address] [place] [address] Emergency Department Summary 04/21/25 MR#: [id number] Acct: [id number] Name: JERALD YODER Rep #:[id number] : [...] his right and left leg and feet. Ragland Coma Scale: document GCS findings Spontaneous Obeys [...] IMPRESSION: No acute process detected. Reading [facility] and Re-Evaluation Narrative: Patient was [...] left knee, initial encounter, Coronary atherosclerosis of chilkat coronary artery, Essential hypertension, HLD (hyperlipidemia), History [...] your insurance card issued to you by [employer] Language: [place] Islander Disposition Disposition: Home, Self Care What to do if you have Problems For any increased pain, shortness of breath, bleeding, nausea or vomiting, chestpain, or any unexpected problems, contact your Primary Care Provider. Call [facility] ([phone]) or report to the closest Emergency Room. Call 911 if necessary. 04/21/25 1309 <Electronically signed by Ar Calle MD> Cosigner Signature (if applicable): CC: No Primary Care Physician ~ Signed [facility] Work Phone: Discharge summary Author Johann Lemons [facility] Note Date/Time June 14, 2025 3: 09am [facility] Medical Records Department [address] [place] [address] Emergency Department Summary 06/14/25 MR#: [id number] Acct: [id number] Name: JERALD YODER Rep #:[id number] : 1960 65 From: Johann Lemons DO PCP: Dr. Linden Chavez DO Status:REG ER Location: ED HPI History of Present Illness Chief Complaint: Diarrhea Informant: patient Narrative Narrative: Patient is a 65-year-old male with past medical history of hypertension hyperlipidemia and COPD. He reports that this evening he ate 8 hot dogs. He states after this he began to have bouts of diarrhea which he describes as a combination of loose and watery stool. He states there is no blood or discoloration to either. He reports that he was using Lomotil to help with diarrhea and taking Creon. However he does not have either of those medications. He states that he is simply tired of having the diarrhea and therefore comes in for evaluation. He states there has been no recent travel outside the country or antibiotic use. [facility] Medical History Partial traumatic amputation [...] t abs 05/22/25 Unknown Rx release (Protonix) qphshy-[id number]-[id number] 1 cap PO TID 05/23/25 Unknow n History 36,000-114,000-180,000 unit capsule,delay rel (Creon) hydroxyzine HCl 25 mg tablet 25 mg PO TID PRN itching #20 tabs 05/29/25 Unknown Rx nitrofurantoin 100 mg PO Q12H 5 days #10 ca ps 05/30/25 Unknown Rx monohydrate/macrocrystals 100 mg capsule (Macrobid) diphenoxylate-atropine 2.5 1 tab PO 4X/DAY PRN diarrhe a 5 06/03/25 Unknown Rx mg-0.025 mg tablet (Lomotil) days #20 tabs diphenoxylate-atropine 2.5 1 tab PO 4X/DAY PRN diarrhe a 5 06/14/25 Unknown Rx mg-0.025 mg tablet (Lomotil) days #20 tabs Allergy/AdvReac Type Severity Reaction Status Date / Time diphenhydramine HCl (From Allergy Rash Verified 06/14/25 01:33 Benadryl) Penicillins Allergy Rash Verified 06/14/25 01:33 venom-honey bee (bee venom Allergy Swelling Verified 06/14/25 01:33 (honey bee)) Surgical History H/O hernia repair [...] ED: Denies dysuria Musculoskeletal Musculoskeletal: Denies myalgias Neurologic Neurologic: Denies headache(s) Hematologic/Lymphatic Hematologic/Lymphatic: Denies easy bleeding or easy bruising EXAM Physical Exam Const Vital Signs: 06/14/25 01:31 Temperature 98.5 F Temperature Source Oral Pulse Rate 75 Respiratory Rate 16 Blood Pressure 125/82 H Blood Pressure Mean 96 Pulse Ox 98 Oxygen Delivery Method Room Air Positive well nourished and well developed General Appearance ED: well developed HEENT Reports dry mucous membranes HEENT Narrative: No tongue or lip swelling no oral lesions no airway edema or compromise; no secondary findings in the posterior pharynx to suggest infection Mucous membranes are dry and tacky consistent with mild dehydration Mouth ED: Yes dry mucous membranes Mouth: dry mucous membranes Eyes PERRL and EOMs intact bilaterally General Eye ED: Negative for scleral icterus Neck supple Resp normal respiratory effort and clear to auscultation bilaterally Cardio regular rate and regular rhythm GI non-tender, non-distended and no masses GI Narrative: Abdomen is soft nontender and nondistended with hypoactive bowel sounds No voluntary guarding or rigidity or pulsatile mass Auscultation: hyperactive bowel sounds Palpation: soft Extremity normal to inspection Neuro oriented x3, CN's II-XII intact bilaterally and no sensory deficits noted Sensorium / Orientation: alert Motor Exam: strength 5/5 throughout Psych mental status grossly normal Skin No skin turgor normal Skin Narrative: Skin turgor is increased consistent with dehydration MDM MDM MDM Narrative Medical decision making narrative: Patient arrived to the ER with stable vitals. He reported he did not have boutsof diarrhea until after eating 8 hotdogs this evening. As the symptoms occurredafter eating but not throughout the day and he denied any recent travel outside the country or antibiotic use my concern for infectious diarrhea such as C. difficile or Salmonella or E. coli is extremely low. His symptoms are most consistent with functional diarrhea which is exacerbated by the foods he eats. Clinically he has mild dehydration with dry mucous membranes and increased skin turgor. However I have very low concern for acute kidney injury based on his physical exam. Therefore I do not feel the need for IV blood work. I did ordera stool series as patient has had visits for diarrhea on June 03 as well as today. However he could not produce a bowel movement which further indicates this is most likely functional diarrhea. After receiving IV hydration the patientreported feeling better and he had no bouts of diarrhea while in the ER. Therefore I do not feel the need for further intervention or workup and he is otherwise safe for discharge. History & Record Review Discussion w/independent historian: Patient Discharge Plan Triage Chief Complaint: Diarrhea ED Provider: Johann Lemons Dx/Rx/DC Orders Clinical Impression: Diarrhea, Dehydration, Essential hypertension, HLD (hyperlipidemia), DM (diabetes mellitus) Instructions: Treating Diarrhea, ED Dehydration (Adult) Prescriptions: New diphenoxylate-atropine [Lomotil] 2.5-0.025 mg tablet 1 tab PO 4X/DAY PRN (Reason: diarrhea) 5 Days Qty: 20 0RF No Action Creon 36,000-114,000- [...] PRN (Reason: Muscle Spasm) Qty: 15 0RF hydroxyzine HCl 25 mg tablet 25 mg PO TID PRN (Reason: itching) Qty: 20 0RF nitrofurantoin monohyd/m-cryst [Macrobid] 100 mg capsule 100 mg PO Q12H 5 Days Qty: 10 0RF Rx Instructions: must administer with a meal/food diphenoxylate-atropine [Lomotil] 2.5-0.025 mg tablet 1 tab PO 4X/DAY PRN (Reason: diarrhea) 5 Days Qty: 20 0RF aspirin [Adult Aspirin Regimen] 81 mg [...] Care Provider] - Activity Restrictions/Additional Instructions: Your history and exam indicate you have functional diarrhea. This is not due christine infection but it is due to gastric irritation from certain foods that you eat. Please try to avoid a large amount of hot dogs in the future as this is what caused symptoms on June 03 as well as today. You can use his Lomotil as directed to help control diarrhea. Please still follow-up with gastroenterologyto discuss need for potential colonoscopy to further assess for other causes of your symptoms. Return to the ER should you have any further concerns Print Language: [place]er Disposition Disposition: Home, Self Care What to do if you have Problems For any increased pain, shortness of breath, bleeding, nausea or vomiting, chestpain, or any unexpected problems, contact your Primary Care Provider. Call [employer] [facility] ([phone]) or report to the closest Emergency Room. Call 911 if necessary. 06/14/25 0309 <Electronically signed by Johann Lemons DO> Cosigner Signature (if applicable): CC: Dr. Linden Chavez DO ~ Signed [facility] Work Phone: Evaluation note* Diagnosis Onset Date Resolution Status Abdominal pain resolved Diarrhea resolved Gastroparesis resolved Hyperglycemia resolved [facility] Work Phone: Evaluation note* Diagnosis Onset Date Resolution Status Abdominal pain resolved Diarrhea resolved Gastroparesis resolved Hyperglycemia resolved Acute diarrhea acute Generalized weakness acute Transient hypotension acute [facility] Work Phone: Evaluation note* Diagnosis Onset Date Resolution Status Abdominal pain resolved Diarrhea resolved Gastroparesis resolved Hyperglycemia resolved Acute diarrhea resolved Generalized weakness resolve d Transient hypotension resolv ed [facility] Work Phone: Evaluation note* Diagnosis Onset Date Resolution Status Acute diarrhea resolved Generalized weakness resolve d Transient hypotension resolv ed [facility] Work Phone: Evaluation noteNo assessment information available [facility] Work Phone: Evaluation note* Diagnosis Bilateral impacted cerumen- Primary Impacted cerumen documented in this encounter [facility]* Diagnosis Bilateral impacted cerumen- Primary Impacted cerumen documented in this encounter [facility]* Diagnosis Eustachian tube dysfunction, bilateral- Primary documented in this encounter [facility] Work Phone: Hospital Discharge instructions[facility] Work Phone: [facility] Discharge instructions[facility] Work Phone: Hospital Discharge instructions Additional Instructions 1. The name of your doctor is located on your insurance card issued to you from [facility] 2. Increase fluid intake today 3. You need to take your medication as prescribed and you need to be compliant with your [facility]WMer[facility] Work Phone: Hospital Discharge instructions Additional Instructions Blood glucose 250. Labs stable EKG normal. Continue oral fluids. Follow-up with your doctor to restart heart your medications.[facility] Work Phone: Hospital Discharge instructions Additional Instructions Laboratory studies stable glucose 340s with no signs of DKA. Insulin with improvement down to 130s. Continue oral fluids for hydration. Follow-up with your doctor. Return if worsening symptoms.[facility] Work Phone: Hospital Discharge instructions Additional Instructions Pepto-Biserasmol will turn his stools black. This is an expected side effect of that medication, you are testing negative for blood, so likely due to that medication. If you take it in the future and to turn your stool black temporarily, you do not need to be concerned. If you see blood return to the ER.[facility] Work Phone: Hospital Discharge instructions Additional Instructions Your CT showed no broken bones. Use ice and take [id number] Tylenol and Motrin as needed for pain.[facility] Work Phone: Hospital Discharge instructions Additional Instructions Your CT scan showed no sign of bowel blockage. It did show changes consistent with constipation . Take MiraLAX as directed every day to prevent these recurrent issues . please keep yourself well-hydrated and continue to take your diabetic medication as directed. Return to the ER should you have any further concerns.[facility] Work Phone: Hospital Discharge instructions Additional Instructions When you get home drink half the bottle of magnesium citrate. If you do not have a bowel movement in 4 hours finished the bottle. Once the magnesium citrate is stimulated bowel movement continue to the MiraLAX daily to help with recurrent bowel movements and resolve your constipation.[facility] Work Phone: Hospital Discharge instructions Additional Instructions [...] the ER should you have any further concernsW[facility]Tr[facility] Work Phone: Hospital Discharge instructions [...] care physician for further outpatient evaluation and management.[facility] Work Phone: Hospital Discharge instructions Additional Instructions Call your doctor for follow-up. The name of your doctor is located on your insurance card issued to you by [facility] Work Phone: Hospital Discharge instructionsAdditional Instructions [...] high. Take all of the antibiotics as prescribed.[facility] Work Phone: Hospital Discharge instructionsAdditional Instructions Please [...] and told you need to come follow-up quickly.[facility] Work Phone: Hospital Discharge instructionsAdditional Instructions Avoid eating overly heavy meals. Your lab work and vital signs were normal today. Per the GI office notes if you eat a heavy meal you should actually take 3 capsules of your Creon. You should have 2 capsules with snacks and 1 capsule of beverages that contain calories.[facility] Work Phone: Reason for referral (narrative)No reason for referral information availableWMercy Health [facility] Work Phone: Hospital Course * Zahira [...] DISCHARGE MEDICATIONS: Jerald Yoder Home Medication Instructions IFEOMA:[id number] Printed on:10/06/19 1522 Medication Information aspirin 81 [...] Complexity: follow up within 7-14 calendar days (68440) [] Severe Complexity: follow up within 7 calendar days (88344) FOLLOW UP TESTING, PENDING RESULTS OR REFERRALS [...] at most local grocery stores, pharmacies, and [employer] super-stores. ? If you have any questions [...] be monitored and followed by the diet seal delivery vehicle team technician. * Vini Calloway RN - 10/06/2019 [...] FoundDocuments on File Type Date Recorded Patient Child Life Assistant Expl anation Advance Directives and Living Will Power of Clinical Immunologist Latest Code Status on File Code Status Date Activated Date Inactivated Comments Full Code 10/06/2019 11:12 AM Full Code 10/05/2019 5:27 PM 10/06/2019 11:12 AM Advance Directive Response Recorded Date/ Time Advance Directives No November 30, 2016 10:29am Living Will No March 02, 2022 7: 27pm Power of Clinical Immunologist No March 02, 2022 7:27pm Advance Directive Response Recorded Date/ Time Advance Directives No November 30, 2016 10:29am Living Will No March 19, 2022 5 :35pm Power of Clinical Immunologist No March 19, 2022 5:35pm Advance Directive Response Recorded Date/ Time Advance Directives No November 30, 2016 10:29am Living Will No March 19, 2022 1 1:38pm Power of Clinical Immunologist No March 19, 2022 11:38pm Advance Directive Response Recorded Date/ Time Advance Directives No November 30, 2016 10:29am Living Will No April 26, 2022 2:33pm Power of Clinical Immunologist No April 26 2:33pm Advance Directive Response Recorded Date/ Time Advance Directives No November 30, 2016 10:29am Living Will No May 26, 2022 1:38am Power of Clinical Immunologist No May 26 1:38am Advance Directive Response Recorded Date/ Time Advance Directives No November 30, 2016 10:29am Living Will No July 02 9:45pm Power of Clinical Immunologist No July 02, 2022 9:45pm Advance Directive Response Recorded Date/ Time Advance Directives No November 30, 2016 10:29am Living Will No August 07 6:50pm Power of Clinical Immunologist No August 07 022 6:50pm Advance Directive Response Recorded Date/ Time Advance Directives No November 30, 2016 9:29am Living Will No September 18 022 10:57am Power of Clinical Immunologist No September 18, 2022 10:57am Advance Directive Response Recorded Date/ Time Advance Directives No November 30, 2016 9:29am Living Will No November 25 2:07pm Power of Clinical Immunologist No November 25, 2022 2:07pm Advance Directive Response Recorded Date/ Time Advance Directives No November 30, 2016 9:29am Living Will No December 10 023 9:57am Power of Clinical Immunologist No December 10, 2022 9:57am Advance Directive Response Recorded Date/ Time Advance Directives No November 30, 2016 9:29am Living Will No December 11 023 4:20pm Power of Clinical Immunologist No December 11, 2022 4:20pm Advance Directive Response Recorded Date/ Time Advance Directives No November 30, 2016 10:29am Living Will No January 18, 2023 8:03am Power of Clinical Immunologist No January 18 8:03am Advance Directive Response Recorded Date/ Time Advance Directives No November 30, 2016 10:29am Living Will No March 07, 2023 1: 12am Power of Clinical Immunologist No March 07, 2023 1:12am Advance Directive Response Recorded Date/ Time Advance Directives No November 30, 2016 10:29am Living Will No May 12, 2023 3:57pm Power of Clinical Immunologist No May 12 3:57pm Advance Directive Response Recorded Date/ Time Advance Directives No November 30, 2016 10:29am Living Will No August 26 5:10am Power of Clinical Immunologist No August 26, 2023 5:10am Advance Directive Response Recorded Date/ Time Advance Directives No November 30, 2016 9:29am Living Will No September 29 023 8:45pm Power of Clinical Immunologist No September 29, 2023 8:45pm Advance Directive Response Recorded Date/ Time Advance Directives No November 30, 2016 9:29am Living Will No September 30 11:40pm Power of Clinical Immunologist No September 30, 2023 11:40pm Advance Directive Response Recorded Date/ Time Advance Directives No November 30, 2016 9:29am Living Will No November 22 2:25pm Power of Clinical Immunologist No November 22, 2023 2:25pm Advance Directive Response Recorded Date/ Time Advance Directives No November 30, 2016 9:29am Living Will No December 08 12:56pm Power of Clinical Immunologist No December 08, 2023 12:56pm Advance Directive Response Recorded Date/ Time Advance Directives No November 30, 2016 9:29am Living Will No December 18 4:23pm Power of Clinical Immunologist No December 18, 2023 4:23pm Advance Directive Response Recorded Date/ Time Advance Directives No November 30, 2016 9:29am Living Will No December 25 024 8:47am Power of Clinical Immunologist No December 25, 2023 8:47am Advance Directive Response Recorded Date/ Time Advance Directives No November 30, 2016 10:29am Living Will No December 25 024 9:47am Power of Clinical Immunologist No December 25, 2023 9:47am Advance Directive Response Recorded Date/ Time Advance Directives No November 30, 2016 10:29am Living Will No January 26, 2024 11:41pm Power of Clinical Immunologist No January 25 11:41pm Advance Directive Response Recorded Date/ Time Advance Directives No November 30, 2016 10:29am Living Will No February 07, 2024 7:17pm Power of Clinical Immunologist No February 06 7:17pm Advance Directive Response Recorded Date/ Time Advance Directives No November 30, 2016 10:29am Living Will No March 08, 2024 6: 24am Power of Clinical Immunologist No March 08, 2024 6:24am Advance Directive Response Recorded Date/ Time Advance Directives No November 30, 2016 10:29am Living Will No March 09, 2024 1 :35am Power of Clinical Immunologist No March 09, 2024 1:35am Advance Directive Response Recorded Date/ Time Living Will No October 19 024 4:56am Do you have a Healthcare Power of Clinical Immunologist? No October 19, 2024 4:56am Living Will No December 20 025 6:56pm Do you have a Healthcare Power of Clinical Immunologist? No December 20, 2024 6:56pm Living Will No October 30 024 1:19am Do you have a Healthcare Power of Clinical Immunologist? No October 30, 2024 1:19am Living Will No November 27 2:38pm Do you have a Healthcare Power of Clinical Immunologist? No November 27, 2024 2:38pm Living Will No December 08 1:33pm Do you have a Healthcare Power of Clinical Immunologist? No December 08, 2024 1:33pm Living Will No December 27 2 025 2:11am Do you have a Healthcare Power of Clinical Immunologist? No December 27, 2024 2:11am Living Will No February 16, 2025 4:01am Do you have a Healthcare Power of Clinical Immunologist? No February 16, 2025 4:01am Advance Directives No November 30, 2016 10:29am Advance Directive Response Recorded Date/ Time Living Will No December 20 025 6:56pm Do you have a Healthcare Power of Clinical Immunologist? No December 20, 2024 6:56pm Living Will No November 27 2:38pm Do you have a Healthcare Power of Clinical Immunologist? No November 27, 2024 2:38pm Living Will No December 08 1:33pm Do you have a Healthcare Power of Clinical Immunologist? No December 08, 2024 1:33pm Living Will No December 27, 025 2:11am Do you have a Healthcare Power of Clinical Immunologist? No December 27, 2024 2:11am Living Will No February 16, 2025 4:01am Do you have a Healthcare Power of Clinical Immunologist? No February 16, 2025 4:01am Do you have a Healthcare Power of Clinical Immunologist? No March 26, 2025 9:53pm Advance Directives No November 30, 2016 10:29am Advance Directive Response Recorded Date/ Time Living Will No December 27 025 2:11am Do you have a Healthcare Power of Clinical Immunologist? No December 27, 2024 2:11am Living Will No February 16, 2025 4:01am Do you have a Healthcare Power of Clinical Immunologist? No February 16, 2025 4:01am Do you have a Healthcare Power of Clinical Immunologist? No March 26, 2025 9:53pm Do you have a Healthcare Power of Clinical Immunologist? No April 21, 2025 10:50am Advance Directives No November 30, 2016 10:29am Advance Directive Response Recorded Date/ Time Living Will No February 16, 2025 4:01am Do you have a Healthcare Power of Clinical Immunologist? No February 16, 2025 4:01am Do you have a Healthcare Power of Clinical Immunologist? No March 26, 2025 9:53pm Do you have a Healthcare Power of Clinical Immunologist? No April 21, 2025 10:50am Advance Directives No November 30, 2016 10:29am Advance Directive Response Recorded Date/ Time Living Will No February 16, 2025 4:01am Do you have a Healthcare Power of Clinical Immunologist? No February 16, 2025 4:01am Do you have a Healthcare Power of Clinical Immunologist? No March 26, 2025 9:53pm Do you have a Healthcare Power of Clinical Immunologist? No April 21, 2025 10:50am Do you have a Healthcare Power of Clinical Immunologist? No May 03, 2025 12:24pm Advance Directives No November 30, 2016 10:29am Advance Directive Response Recorded Date/ Time Living Will No February 16, 2025 4:01am Do you have a Healthcare Power of Clinical Immunologist? No February 16, 2025 4:01am Do you have a Healthcare Power of Clinical Immunologist? No March 26, 2025 9:53pm Do you have a Healthcare Power of Clinical Immunologist? No April 21, 2025 10:50am Do you have a Healthcare Power of Clinical Immunologist? No May 03, 2025 12:24pm Do you have a Healthcare Power of Clinical Immunologist? No May 22, 2025 7:01am Advance Directives No November 30, 2016 10:29am Advance Directive Response Recorded Date/ Time Do you have a Healthcare Power of Clinical Immunologist? No May 29, 2025 10:58pm Living Will No February 16, 2025 4:01am Do you have a Healthcare Power of Clinical Immunologist? No February 16, 2025 4:01am Do you have a Healthcare Power of Clinical Immunologist? No March 26, 2025 9:53pm Do you have a Healthcare Power of Clinical Immunologist? No April 21, 2025 10:50am Do you have a Healthcare Power of Clinical Immunologist? No May 03, 2025 12:24pm Do you have a Healthcare Power of Clinical Immunologist? No May 22, 2025 7:01am Advance Directives No November 30, 2016 10:29am Advance Directive Response Recorded Date/ Time Do you have a Healthcare Power of Clinical Immunologist? No May 29, 2025 10:58pm Do you have a Healthcare Power of Clinical Immunologist? No June 03, 2025 10:16pm Living Will No February 16, 2025 4:01am Do you have a Healthcare Power of Clinical Immunologist? No February 16, 2025 4:01am Do you have a Healthcare Power of Clinical Immunologist? No March 26, 2025 9:53pm Do you have a Healthcare Power of Clinical Immunologist? No April 21, 2025 10:50am Do you have a Healthcare Power of Clinical Immunologist? No May 03, 2025 12:24pm Do you have a Healthcare Power of Clinical Immunologist? No May 22, 2025 7:01am Advance Directives No November 30, 2016 10:29am Advance Directive Response Recorded Date/ Time Do you have a Healthcare Power of Clinical Immunologist? No May 29, 2025 10:58pm Do you have a Healthcare Power of Clinical Immunologist? No June 03, 2025 10:16pm Do you have a Healthcare Power of Clinical Immunologist? No June 14, 2025 1:30am Living Will No February 16, 2025 4:01am Do you have a Healthcare Power of Clinical Immunologist? No February 16, 2025 4:01am Do you have a Healthcare Power of Clinical Immunologist? No March 26, 2025 9:53pm Do you have a Healthcare Power of Clinical Immunologist? No April 21, 2025 10:50am Do you have a Healthcare Power of Clinical Immunologist? No May 03, 2025 12:24pm Do you have a Healthcare Power of Clinical Immunologist? No May 22, 2025 7:01am Advance Directives [...] 1 2:20pm N/V December 20, 2024 12:17pm LUOG WHEN I PEE December 26, 2024 11:50pm [...] 10:04pm diarrhea June 03, 2025 9:5 8pm Chief Complaint Admit Date doesn't feel good February 16, 2025 4:0 1am back pain, restless legs March 26, 2025 8:08pm FALL April 21, 2025 10:5 0am OUT OF MEDS May 03, 2025 11:27 am weakness May 22, 2025 7:01 am ER FOLLOW UP - BLEEDING May 23, 2025 11:09am ABDOMINAL PAIN AND DIARRHEA May 29 2 025 10:04pm diarrhea June 03, 2025 9:5 8pm CRAMPING DIARHEA June 14, 2025 1: 29am Additional Source Comments (unrecognized sect ion and content) No Status Records FoundNo Status Records FoundNo Status Records Found INFORMATION SOURCE (unrecogn ized section and content) DATE CREATED AUTHOR 10/14/2019 [facility] DATE CREATED AUTHOR AUTHOR'S ORGANIZ ATION 12/16/2024 [facility] DATE CREATED AUTHOR AUTHOR'S ORGANIZ ATION 07/19/2025 [facility] Goals (unrecognized section and content) Goals may [...] Chvaez DO Primary Care Provider Active Dr. Panchito [...] Inactive Member Role Status Dates Dr. Linden Cahvez DO Primary Care Provider Active Dr. Keenan [...] May 03, 2025 Dr. Pedro Krishnan , Attending Provider Active Start: May 03, 2025 End: May 03, 2025 Dr. Pedro Krishnan , Emergency Provider Active Start: May 03, 2025 [...] End: May 30, 2025 Dr. Antonette Dominguez DO Emergency Provider Active Start: May 29, 2025 End: May 30, 2025 Team Status: Inactive Member Role/Relationship Status Dates Dr. Linden Chavez DO Primary Care Provider Active Start: May 22, 2025 End: May 22, 2025 Dr. Antonette Dominguez DO Attending Provider Active Start: May 22, 2025 End: May 22, 2025 Dr. Antonette Dominguez DO Emergency Provider Active Start: May 22, 2025 End: May 22, 2025 Team Status: Inactive Member Role/Relationship Status Dates Dr. Linden Chavez DO Primary Care Provider Active Start: June 03, 2025 End: June 03, 2025 Dr. Johann Lemons , DO Emergency Provider Active Start: June 03, 2025 End: June 03, 2025 Team Status: Inactive Member Role/Relationship Status Dates Dr. Linden Chavez , DO Primary Care Provider Active Start: May 29, 2025 End: May 30, 2025 Dr. Antonette Dominguez , DO Attending Provider Active Start: May 29, 2025 End: May 30, 2025 Dr. Antonette Dominguez , DO Emergency Provider Active Start: May 29, 2025 End: May 30, 2025 Team Status: Inactive Member Role/Relationship Status Dates Dr. Linden Chavez , DO Primary Care Provider Active Start: June 14, 2025 End: June 14, 2025 Dr. Johann Lemons , DO Emergency Provider Active Start: June 14, 2025 End: June 14, 2025 Source Comments (unrecognize d section and content) In the event this informatio n is protected by the Federal Confidentiality of Alcohol and Drug Abuse Patient Records regulations: The Federal rules restrict any use of the information to criminally investigate or prosecute any alcohol or drug abuse patient.[facility] the event this information is protected by the Federal Confidentiality of Alcohol and Drug Abuse Patient Records regulations: The Federal rules restrict any use of the information to criminally investigate or prosecute any alcohol or drug abuse patient.[facility] the event this information is protected by the Federal Confidentiality of Alcohol and Drug Abuse Patient Records regulations: The Federal rules restrict any use of the information to criminally investigate or prosecute any alcohol or drug abuse patient.[facility] Reason for Visit (unrecogniz ed section [...] BE BASED ON THE PRIMARY CLINICAL RECORDS. [facility]. provides no warranty or guarantee of the accuracy or completeness of information in this document.
[2025-07-22] MEDS: 0.9% Normal Saline (1000mL) 1,000 ML 1000 ML IV (21:34)
[2025-07-22 21:51] LABS: Hematocrit 39.1 % (40-54); Hemoglobin 13.9 g/dL (13.0-16.5); Immature Granulocytes Count 0.030 X10^3/uL (0.0-0.0); Mean Corp Hgb Conc 35.5 g/dL (32-36); Mean Corpuscular Volume 81.8 fL (80-94); Mean Platelet Vol. 9.4 fl (6.2-12.0); NRBC Flagged by Analyzer 0 % (0-5); Platelet Count 226 K/mm3 (150-450); RBC Distribution Width CV 13.5 % (11.6-14.6); RBC Distribution Width SD 40.1 fl (35.1-43.9); Red Blood Count 4.78 M/mm3 (4.6-6.2); White Blood Count 7.8 K/mm3 (4.4-11.0)
[2025-07-22 22:00] VITALS: BP 143/83; PULSE 81; RESP 20; O2SAT 98
[2025-07-22 22:37] LABS: AST(SGOT) 21 U/L (<=37); Alanine Aminotransfer ALT/SGPT 15 U/L (<=46); Albumin, Serum 4.0 g/dL (3.4-4.8); Alkaline Phosphatase 83 U/L (40-129); Anion Gap 11 (5-15); BUN 18 mg/dL (4-19); BUN/Creat Ratio 12.1 RATIO (10-20); Calcium,Total 9.6 mg/dL (7.6-11.0); Carbon Dioxide 25.2 mmol/L (21.0-32.0); Chloride 102 mmol/L (98-108); Estimated Creatinine Clearance 63.57 ml/min (50-250); Globulin 3.0 g/dL (2.2-4.2); Glucose 178 mg/dL (70-99); Potassium 4.0 mmol/L (3.3-5.1)
[2025-07-22 23:01] VITALS: BP 159/88; PULSE 83; RESP 19; TEMP 36.7; O2SAT 98
== END 2025-07-22 23:14 | disposition home or self-care (01) ==
PROVIDERS: Emergency Provider Emergency Medicine; PCP Family Medicine; Visit Provider Emergency Medicine
DX: K52.9 Noninfective gastroenteritis and colitis, unspecified (principal); J44.9 Chronic obstructive pulmonary disease, unspecified; E11.9 Type 2 diabetes mellitus without complications; I25.10 Atherosclerotic heart disease of native coronary artery without angina pectoris; E86.0 Dehydration; G47.30 Sleep apnea, unspecified; I25.2 Old myocardial infarction; Z95.5 Presence of coronary angioplasty implant and graft
CPT/HCPCS: 80053; 85025; 93005; 99284

== ENCOUNTER 2025-07-25 07:42 | Emergency (ER) | payer MEDICARE, OTHER, MEDICAID, SELFPAY ==
[2025-07-25 07:42] VITALS: BP 132/88; PULSE 73; RESP 14; TEMP 36.2; O2SAT 98
[2025-07-25 07:51] VITALS: BMI 26.6
--- NOTE | 2025-07-25 07:59 | EDS_ITS ---
HPI HPI - GI History of Present Illness Chief Complaint: Abd Pain Informant: patient Narrative Narrative: Patient is a 65-year-old male with history of chronic diarrhea, diabetes mellitus, hypertension, pancreatitis and coronary artery disease presenting with nausea and upset stomach. Patient states he went to breakfast and while he was taking his first bite of breakfast he started to feel that his stomach was upset and got nauseous. He did not eat. On the way home his stomach started to bother him more and he felt more more like he was going to vomit so he decided come to the emergency room. Does not have any abdominal pain besides his stomach hurting/the feeling the need to vomit. States he had diarrhea at 4 AM however the is not abnormal for him. Does not report any black or blood in his stool. Notes that he has not been able to check his blood sugar recently because the pharmacy gave him the wrong testing supplies. States his feet feel numb right now however he has a hard time telling me whether this is new or c hronic. Does state that he supposed to be on medicine for his stomach but it is too expensive so he cannot take it, but has a hard time recalling which medication it is. Denies any chest pain or shortness of breath. Denies recent fever or chills. Denies any recent URI symptoms such as nasal congestion or sore throat. No other complaints or concerns at this time. 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 Esophageal candidiasis Current use of insulin Back pain due to injury Restless legs Injury of head and neck COPD (chronic obstructive pulmonary disease) High cholesterol History of stress test Depression Chronic pain Non-smoker Sleep apnea Diabetes Hyperlipidemia Hypertension Myocardial infarct Home Medications ?Medication ?Instructions ?Recorded ?Last Taken ?Type glipizide 5 mg tablet 5 mg PO BID diabetes 03/19/2 2 03/18/22 History insulin glargine 100 unit/mL (3 18 unit subcut BID mya betes 03/19/22 03/18/22 History mL) subcutaneous pen (Lantus Solostar U-100 Insulin) hydrocortisone 1 % topical cream 1 applic topical TID PRN skin 08/26/23 Unknown Rx irritation #28.4 grams ibuprofen 600 mg tablet 600 mg PO Q8H PRN PRN pain # 20 08/26/23 Unknown Rx TABLETS insulin glargine 100 unit/mL 1 unit subcut QPM 3 Unknown History subcutaneous solution (Lantus U-100 Insulin) levothyroxine 100 mcg tablet 100 mcg PO DAILY 09/29/23 Unknown History cyclobenzaprine 10 mg tablet 10 mg PO TID PRN Muscle S pasm #15 08/10/24 Unknown Rx TABLETS doxycycline hyclate 100 mg capsule 100 mg PO BID 7 day s #14 caps 02/16/25 Unknown Rx sulfamethoxazole 800 1 tab PO BID 7 days #14 tabs 05/03/25 Unknown Rx mg-trimethoprim 160 mg tablet (Bactrim DS) pantoprazole 20 mg tablet,delayed 20 mg PO DAILY #30 t abs 05/22/25 Unknown Rx release (Protonix) [id number] 1 cap PO TID 05/23/25 Unknow n History 36,000-114,000-180,000 unit capsule,delay rel (Creon) hydroxyzine HCl 25 mg tablet 25 mg PO TID PRN itching #20 tabs 05/29/25 Unknown Rx nitrofurantoin 100 mg PO Q12H 5 days #10 ca ps 05/30/25 Unknown Rx monohydrate/macrocrystals 100 mg capsule (Macrobid) diphenoxylate-atropine 2.5 1 tab PO 4X/DAY PRN diarrhe a 5 06/03/25 Unknown Rx mg-0.025 mg tablet (Lomotil) days #20 tabs diphenoxylate-atropine 2.5 1 tab PO 4X/DAY PRN diarrhe a 5 06/14/25 Unknown Rx mg-0.025 mg tablet (Lomotil) days #20 tabs ondansetron 4 mg disintegrating 4 mg PO Q8H PRN PRN Na usea #10 tabs 07/25/25 Unknown Rx tablet Allergy/AdvReac Type Severity Reaction Status Date / Time diphenhydramine HCl (From Allergy Rash Verified 07/25/25 07:43 Benadryl) Penicillins Allergy Rash Verified 07/25/25 07:43 venom-honey bee (bee venom Allergy Swelling Verified 07/25/25 07:43 (honey bee)) Surgical History H/O hernia repair Hx of left knee surgery Hx of inguinal herniorrhaphy History of coronary artery stent placement Social History household members: none Smoking Status: Never smoker substance use type: does not use ROS ROS ED Constitutional Constitutional ED: Denies chills, fever(s) or sweats ENT ENT ED: Denies rhinorrhea or sore throat Cardiovascular Cardiovascular: Denies chest pain Respiratory/Chest Respiratory/Chest: Denies cough or dyspnea Gastrointestinal Gastrointestinal: Reports diarrhea and nausea; Denies abdominal pain, melena or vomiting Musculoskeletal Musculoskeletal: Denies arthralgias or myalgias Integumentary Denies rash Neurologic Neurologic: Reports paresthesias EXAM Physical Exam Const Vital Signs: 07/25/25 07:42 07/25/25 09:42 07/25/25 10:54 Temperature 97.1 F L 97.1 F L Temperature Source Temporal Temporal Pulse Rate 73 78 80 Respiratory Rate 14 18 16 Blood Pressure 132/88 H 157/88 H 135/78 H Blood Pressure Mean 102 111 97 Pulse Ox 98 96 99 Oxygen Delivery Method Room Air Room Air Room Air Positive well nourished and well developed General Appearance ED: well developed and NAD; Negative for pallor HEENT Reports moist mucous membranes HEENT Narrative: chronic abrasion/wound to right cheek normocephalic Eyes PERRL and EOMs intact bilaterally Neck supple Resp normal respiratory effort and clear to auscultation bilaterally Cardio regular rate and regular rhythm GI non-tender and non-distended Auscultation: normoactive bowel sounds Palpation: soft; Negative for tender or guarding Extremity full ROM Neuro Neuro Narrative: Moving all extremities. Subjective paresthesias to the bilateral feet however sensation intact to the bilateral lower legs and upper extremities. Sensorium / Orientation: alert, oriented to person, oriented to place and o riented to time Psych mental status grossly normal and thought process normal Skin General Skin Exam: Negative for jaundice or pallor MDM MDM MDM Narrative Medical decision making narrative: Patient evaluated for sudden onset of nausea and upset stomach. Feels like he is going to throw up. Otherwise well-appearing. Vital signs normal. No associated fever or viral illness. No history of any abdominal surgeries is a lower suspicion for small bowel obstruction especially as he had an episode of diarrhea this morning (this is chronic for him). Will obtain EKG to ensure this is not an anginal equivalent. Differential also includes gastritis, viral syndrome, pancreatitis. He is not have any right upper quadrant pain so lower suspicion for cholecystitis. Will obtain liver enzymes for further evaluation however. Patient given IV fluids and Zofran. On repeat evaluation patient feeling improved. No vomiting in the ER. Workup shows a normal white blood cell count. CMP unremarkable except for chronically elevated glucose at 198. He has normal anion gap. Low suspicion for HH NK or DKA. Patient was given IV fluids in the emergency room. Urinalysis is chronically infected. He is asymptomatic. Review of his urine cultures from the last year shows that he always test positive for Staphylococcus aureus that is pansensitive. He is previously been treated. At this point I suspect he is colonized as he is asymptomatic. He has no associate urinary symptoms, fever or leukocytosis. Will give him referral for urology but hold off on treatment at this time. Patient agreeable. Given return precautions. Discharged home in stable condition peer Lab Data Attestation: I reviewed the patient's lab results. Labs: Laboratory Results - last 24 hr 07/25/25 07/25/25 08:10 10:00 WBC 7.1 RBC 4.55 L Hgb 13.5 Hct 37.4 L MCV 82.2 MCH 29.7 MCHC 36.1 H RDW Std Deviation 39.9 RDW Coeff of Manjinder 13.6 Plt Count 193 MPV 9.2 Immature Gran % (Auto) 0.600 Neut % (Auto) 70.3 H Lymph % (Auto) 16.9 L [place] % (Auto) 8.2 Eos % (Auto) 3.4 Baso % (Auto) 0.6 Absolute Neuts (auto) 5.0 Absolute Lymphs (auto) 1.20 Nucleated RBC % 0 Sodium 141 Potassium 3.6 Chloride 104 Carbon Dioxide 26.8 Anion Gap 11 BUN 20 H Creatinine 0.87 Estim Creat Clear Calc 106.68 Est GFR (MDRD) Non-Af 96 BUN/Creatinine Ratio 22.6 H Glucose 198 H Calcium 9.0 Total Bilirubin 0.35 AST 16 ALT 11 Alkaline Phosphatase 74 Total Protein 6.7 Albumin 4.1 Globulin 2.6 Albumin/Globulin Ratio 1.6 Lipase 11 L Urine Color Yellow Urine Clarity Cloudy Urine pH 6.0 Ur Specific [place] 1.015 Urine Protein 30 H Urine Glucose (UA) Normal Urine Ketones Negative Urine Occult Blood 25 H Urine Nitrite Positive H Urine Bilirubin Negative Urine Urobilinogen Normal Ur Leukocyte Esterase 500 H Urine RBC 0 SEEN Urine WBC 25-50 SEEN Ur Squamous Epith Cells 0 SEEN Urine Bacteria 3+ Urine Mucus 0 SEEN Rhythm Strip Rhythm Strip: Sinus Rhythm Rate: 73 Ectopy: None EKG Initial EKG: Attestation: I personally reviewed and interpreted this EKG as follows: Interpretation: Sinus Rhythm Comments: Normal sinus rhythm rate of 73 bpm Normal axis Normal normals Left anterior fascicular block Normal ST segments Prior EKG tracings: available for review Prior: Unchanged Discharge Plan Triage Chief Complaint: Abd Pain ED Provider: Antonette Dominguez Dx/Rx/DC Orders Clinical Impression: Nausea, DM (diabetes mellitus), Chronic urinary tract infection Instructions: ED Vomit & Diarrhea Nonspec Adult Prescriptions: New ondansetron 4 mg tablet,disintegrating 4 mg PO Q8H PRN PRN (Reason: Nausea) Qty: 10 0RF No Action Creon 36,000-114,000- 180,000 unit capsule,delayed release(DR/EC) 1 cap PO TID Rx Instructions: administer with meals and/or snacks insulin glargine [Lantus Solostar U-100 Insulin] 100 unit/mL (3 mL) Insulin Pen 18 unit SUBCUT BID glipizide 5 mg tablet 5 mg PO BID Rx Instructions: Hold if glucose less than 130 mg/dl ibuprofen 600 mg tablet 600 mg PO Q8H PRN PRN (Reason: pain) Qty: 20 0RF hydrocortisone 1 % cream 1 applic topical TID PRN (Reason: skin irritation) Qty: 28.4 0RF levothyroxine 100 mcg tablet 100 mcg PO DAILY Patient Comments: Take 1 tab by mouth once daily on an empty stomach insulin glargine [Lantus U-100 Insulin] 100 unit/mL solution 1 unit subcut QPM cyclobenzaprine 10 mg tablet 10 mg PO TID PRN (Reason: Muscle Spasm) Qty: 15 0RF hydroxyzine HCl 25 mg tablet 25 mg PO TID PRN (Reason: itching) Qty: 20 0RF nitrofurantoin monohyd/m-cryst [Macrobid] 100 mg capsule 100 mg PO Q12H 5 Days Qty: 10 0RF Rx Instructions: must administer with a meal/food diphenoxylate-atropine [Lomotil] 2.5-0.025 mg tablet 1 tab PO 4X/DAY PRN (Reason: diarrhea) 5 Days Qty: 20 0RF diphenoxylate-atropine [Lomotil] 2.5-0.025 mg tablet 1 tab PO 4X/DAY PRN (Reason: diarrhea) 5 Days Qty: 20 0RF doxycycline hyclate 100 mg capsule 100 mg PO BID 7 Days Qty: 14 0RF sulfamethoxazole-trimethoprim [Bactrim DS] 800-160 mg tablet 1 tab PO BID 7 Days Qty: 14 0RF pantoprazole [Protonix] 20 mg tablet,delayed release (DR/EC) 20 mg PO DAILY Qty: 30 0RF Primary Care Provider: Linden Chavez Referrals: Linden Chavez DO [Primary Care Provider, [facility]] Activity Restrictions/Additional Instructions: Your lab work was overall stable. No signs of pancreatitis were severe normality. Your urine continues to show signs of a urinary tract infection and at this point I suspect you are colonized. If you develop fever, urinary symptoms such as discomfort, blood in your urine or lower abdominal pain please return in the emergency room. Print Language: Estonian Disposition Disposition: Home, Self Care
--- NOTE | 2025-07-25 08:03 | EKG12_ITS ---
Test Reason : Blood Pressure : */* mmHG Vent. Rate : 73 BPM Atrial Rate : 73 BPM P-R Int : 194 ms QRS Dur : 92 ms QT Int : 418 ms P-R-T Axes : 52 -46 36 degrees QTcB Int : 460 ms Normal sinus rhythm Left anterior fascicular block Abnormal ECG Confirmed by Joseph Rizo ([id number]), newspaper copy editor JADEN HERNANDEZ ([id number]) on 07/26/2025 5:49:13 AM Referred By: Confirmed By: Joseph Rizo
[2025-07-25] MEDS: 0.9% Normal Saline (1000mL) 1,000 ML 999 ML IV (08:15)
[2025-07-25 08:25] LABS: Hematocrit 37.4 % (40-54); Hemoglobin 13.5 g/dL (13.0-16.5); Immature Granulocytes Count 0.040 X10^3/uL (0.0-0.0); Mean Corp Hgb Conc 36.1 g/dL (32-36); Mean Corpuscular Volume 82.2 fL (80-94); Mean Platelet Vol. 9.2 fl (6.2-12.0); NRBC Flagged by Analyzer 0 % (0-5); Platelet Count 193 K/mm3 (150-450); RBC Distribution Width CV 13.6 % (11.6-14.6); RBC Distribution Width SD 39.9 fl (35.1-43.9); Red Blood Count 4.55 M/mm3 (4.6-6.2); White Blood Count 7.1 K/mm3 (4.4-11.0)
[2025-07-25 08:42] LABS: AST(SGOT) 16 U/L (<=37); Alanine Aminotransfer ALT/SGPT 11 U/L (<=46); Albumin, Serum 4.1 g/dL (3.4-4.8); Alkaline Phosphatase 74 U/L (40-129); Anion Gap 11 (5-15); BUN 20 mg/dL (4-19); BUN/Creat Ratio 22.6 RATIO (10-20); Calcium,Total 9.0 mg/dL (7.6-11.0); Carbon Dioxide 26.8 mmol/L (21.0-32.0); Chloride 104 mmol/L (98-108); Estimated Creatinine Clearance 106.68 ml/min (50-250); Globulin 2.6 g/dL (2.2-4.2); Glucose 198 mg/dL (70-99); Lipase 11 U/L (13-75); Potassium 3.6 mmol/L (3.3-5.1)
[2025-07-25 09:42] VITALS: BP 157/88; PULSE 78; RESP 18; TEMP 36.2; O2SAT 96
[2025-07-25 10:10] LABS: Mucous, Urine 0 SEEN /hpf (<or=2+); Red Blood Cells-Urine 0 SEEN /hpf (0-5); Squamous Epithelial Cells - UA 0 SEEN /hpf (0-5)
[2025-07-25 10:13] LABS: Color, Urine Yellow (Yellow); Glucose, Dipstick Normal (Normal); Ketone-Dipstick Negative (Negative); Leukocyte Esterase-Dipstick 500 /ul (Negative); Nitrite-Dipstick Positive (Negative); Occult Blood-Urine 25 /ul (Negative); Protein-Dipstick 30 mg/dl (Negative); Specific Gravity, Urine 1.015 (1.002-1.030); Urine Bilirubin Dipstick Negative (Negative)
[2025-07-25 10:54] VITALS: BP 135/78; PULSE 80; RESP 16; O2SAT 99
[2025-07-25 11:20] VITALS: BP 131/80; PULSE 81; RESP 18; TEMP 36.8; O2SAT 97
== END 2025-07-25 11:20 | disposition home or self-care (01) ==
PROVIDERS: Emergency Provider Emergency Medicine; PCP Family Medicine; Visit Provider Emergency Medicine
DX: N39.0 Urinary tract infection, site not specified (principal); J44.9 Chronic obstructive pulmonary disease, unspecified; E11.9 Type 2 diabetes mellitus without complications; I10 Essential (primary) hypertension; I25.10 Atherosclerotic heart disease of native coronary artery without angina pectoris; R11.0 Nausea; E78.00 Pure hypercholesterolemia, unspecified; I25.2 Old myocardial infarction; Z79.84 Long term (current) use of oral hypoglycemic drugs; Z79.899 Other long term (current) drug therapy; Z95.5 Presence of coronary angioplasty implant and graft
CPT/HCPCS: 80053; 81001; 83690; 85025; 93005; 96374; 99283; A4216; J2405

== ENCOUNTER 2025-07-27 06:02 | Emergency (ER) | payer MEDICARE, OTHER, MEDICAID, SELFPAY ==
--- OUTSIDE RECORDS SUMMARY | 2024-12-14 10:30 | XMS RPT_ITS ---
Author Name Auto Generated Organization OH[facility] PROBLEMS No Problem Records Found PROCEDURES No Procedure Records Found RESULTS PROGRESS Observed: 12/14/2024 9:32 AM Status: COMPLETED Source: [facility] HNO ID: [id number] Author: ION RODRIGES APRN.MAGNETIC OBSERVER Service: ? Author Type: Nurse Practitioner Type: Progress Notes Filed: 12/14/2024 09:40 Note Text: This note was created using Mercateo. Subjective Jerald Yoder is a 64 year old male. HPI Pt complains of ear congestion for the last day. He is concerned that his ears are full of wax. Review of Systems Constitutional: Negative for fever. HENT: Positive for ear pain. Negative for sore throat. Respiratory: Negative for cough. Neurological: Negative for headaches. Objective BP 105/70 Pulse 77 Temp 36.2 ?C (97.1 ?F) Resp 18 Wt 98.7 kg (217 lb 9.5 oz) SpO2 97% BMI 27.02 kg/m? Physical Exam Vitals and nursing note reviewed. Constitutional: General: He is not in acute distress. Appearance: Normal appearance. He is not ill-appearing. HENT: Head: Normocephalic. Right Ear: Tympanic membrane normal. There is no impacted cerumen. Left Ear: Tympanic membrane normal. There is no impacted cerumen. Mouth/Throat: Mouth: Mucous membranes are moist. Eyes: Conjunctiva/sclera: Conjunctivae normal. Cardiovascular: Rate and Rhythm: Normal rate and regular rhythm. Pulmonary: Effort: Pulmonary effort is normal. Breath sounds: Normal breath sounds. Musculoskeletal: General: Normal range of motion. Cervical back: Normal range of motion. Skin: General: Skin is warm and dry. Neurological: General: No focal deficit present. Mental Status: He is alert. Psychiatric: Mood and Affect: Mood normal. Behavior: Behavior normal. Assessment and Plan ASSESSMENT/PLAN: 1. Eustachian tube dysfunction, bilateral - ICD9: 381.81, ICD10: H69.93 Discussed with patient that he does have a small amount of wax in the bilateral ear canals but there is no impacted cerumen. I feel his symptoms are more consistent with some mild eustachian tube dysfunction and recommended medications as noted below. He is diabetic so no steroids were prescribed. - FLUTICASONE PROPIONATE 50 MCG/ACTUATION NASAL SPRAY,SUSPENSION - CETIRIZINE 10 MG TABLET Ion Rodriges APRN.CNP CNOV Observed: 12/14/2024 9:30 AM Status: COMPLETED Source: [facility] Office Visit ([facility]) JERALD YODER ([id number]) 1960 M Date Time Provider Department 12/14/24 9:30 AM [facility] During your visit today, we recorded the following information about you: Temperature Pulse Respiration Blood pressure 97.1 degrees 77/minute 18/minute 105/70 Weight 98.7 kg Ion Rodriges APRN.CNP 12/14/2024 9:40 AM Signed This note was created using Vune Labriter. Subjective Jerald Yoder is a 64 year old male. HPI Pt complains of ear congestion for the last day. He is concerned that his ears are full of wax. Review of Systems Constitutional: Negative for fever. HENT: Positive for ear pain. Negative for sore throat. Respiratory: Negative for cough. Neurological: Negative for headaches. Objective BP 105/70 Pulse 77 Temp 36.2 ?C (97.1 ?F) Resp 18 Wt 98.7 kg (217 lb 9.5 oz) SpO2 97% BMI 27.02 kg/m? Physical Exam Vitals and nursing note reviewed. Constitutional: General: He is not in acute distress. Appearance: Normal appearance. He is not ill-appearing. HENT: Head: Normocephalic. Right Ear: Tympanic membrane normal. There is no impacted cerumen. Left Ear: Tympanic membrane normal. There is no impacted cerumen. Mouth/Throat: Mouth: Mucous membranes are moist. Eyes: Conjunctiva/sclera: Conjunctivae normal. Cardiovascular: Rate and Rhythm: Normal rate and regular rhythm. Pulmonary: Effort: Pulmonary effort is normal. Breath sounds: Normal breath sounds. Musculoskeletal: General: Normal range of motion. Cervical back: Normal range of motion. Skin: General: Skin is warm and dry. Neurological: General: No focal deficit present. Mental Status: He is alert. Psychiatric: Mood and Affect: Mood normal. Behavior: Behavior normal. Assessment and Plan ASSESSMENT/PLAN: 1. Eustachian tube dysfunction, bilateral - ICD9: 381.81, ICD10: H69.93 Discussed with patient that he does have a small amount of wax in the bilateral ear canals but there is no impacted cerumen. I feel his symptoms are more consistent with some mild eustachian tube dysfunction and recommended medications as noted below. He is diabetic so no steroids were prescribed. - FLUTICASONE PROPIONATE 50 MCG/ACTUATION NASAL SPRAY,SUSPENSION - CETIRIZINE 10 MG TABLET Ion Rodriges APRN.MAGNETIC OBSERVER Allergies As of Date: 12/14/2024 Noted Allergy Reaction BEE STING 06/22/2011 7 - Swelling BENEDRYL (DIPHENHYDRAMINE) 06/22/2011 7 - Swelling PENICILLINS 06/22/2011 2 - Rash Date Reviewed: 12/14/2024 Reviewed by: Ion Rodriges APRN.MAGNETIC OBSERVER - Fully Assessed Reason for Visit: Ear Problem [38] Cmt: Bilateral clogged x1 day Primary Visit Diagnosis:Eustachian tube dysfunction, bilateral [H69.93] Order(s):fluticasone (FLONASE ALLERGY RELIEF) 50 mcg/actuation nasal sprayUse 1 [place] in each nostril once daily.Disp: 9.9 mLRfl: 0 cetirizine (ZYRTEC) 10 mg tabletTake 1 tablet by mouth once daily for 14 days.Disp: 14 tabletRfl: 0 Prescriptions as of 12/14/2024 - fluticasone (FLONASE ALLERGY RELIEF) 50 mcg/actuation nasal spray Use 1 [place] in each nostril once daily. - cetirizine (ZYRTEC) 10 mg tablet Take 1 tablet by mouth once daily for 14 days. - metFORMIN ER (GLUCOPHAGE XR) 500 mg 24 hr tablet Take 4 tablets by mouth once daily for 14 days. - omeprazole (PRILOSEC) 20 mg capsule Take 1 capsule by mouth daily before breakfast for 14 days. 1/2 hr before meal. - atorvastatin (LIPITOR) 40 mg tablet Take 1 tablet by mouth once daily for 14 days. For cholesterol - lisinopril (ZESTRIL, PRINIVIL) 20 mg tablet Take 1 tablet by mouth once daily. - empagliflozin (JARDIANCE) 10 mg tablet Take 1 tablet by mouth once daily. Take 1 tablet once daily in the morning - levothyroxine (SYNTHROID) 175 mcg tablet Take 1 tablet by mouth once daily. Take on empty stomach. For Thyroid. - aspirin, enteric coated (ASPIRIN, ENTERIC COATED) 81 mg EC tablet Take 1 tablet by mouth once daily. - albuterol HFA (VENTOLIN HFA) 90 mcg/actuation inhaler Inhale 2 Puffs as instructed every 4 hours as needed. - gabapentin (NEURONTIN) 300 mg capsule Take 1 capsule by mouth daily at bedtime for 30 days. - insulin lispro (ADMELOG SOLOSTAR U-100 INSULIN) 100 unit/mL inpn Inject 13 Units subcutaneously three times daily before meals. - naproxen (NAPROSYN) 500 mg tablet Take 1 tablet by mouth twice daily with meals. - insulin glargine (LANTUS U-100 INSULIN) 100 unit/mL injection Inject 82 Units subcutaneously daily before breakfast. - flash glucose scanning reader (FREESTYLE CLAUDIA 14 DAY READER) misc 1 Device four times daily. - flash glucose sensor (FREESTYLE CLAUDIA 14 DAY SENSOR) kit 1 Device four times daily. - Insulin Syringe-Needle U-100 0.5 mL 31 gauge x 5/16 syrg Use once daily with Lantus - blood sugar diagnostic (FREESTYLE LITE STRIPS) test strip Test blood sugar(s) 4 times daily. Dx: 250.02. InsulinDependent: Yes - Alcohol Swabs (ALCOHOL PADS) padm Use to cleanse skin prior to giving insulin - Oral Medication Containers misc Use as directed Problem List As Of Date 12/14/2024 Noted Resolved Diabetes mellitus, type II, insulin dependent [*06/22/2011 COPD (chronic obstructive pulmonary disease) (H*06/22/2011 11/17/2019 Low back pain [M54.50] 06/22/2011 Hypertension [I10] 06/22/2011 Coronary artery disease [I25.10] 06/22/2011 S/P coronary artery stent placement [Z95.5] 06/22/2011 Hypothyroidism [E03.9] 07/22/2011 Foot pain [M79.673] 09/17/2011 Issue of medical certificate for disability exa*11/30/2012 Lumbago [M54.50] 11/30/2012 Ankle fracture, left [S82.892A] 10/13/2015 09/16/2017 Coronary artery disease involving lime heart *09/09/2016 Prescriptions ordered this encounter Disp Refills Start End FLUTICASONE PROPIONATE 50 MCG/ACTUAT* 9.9 * 0 12/14/2024 Route: EACH NOSTRIL Sig: Use 1 [place] in each nostril once daily. CETIRIZINE 10 MG TABLET 14 t* 0 12/14/2024 12/28/2024 Route: ORAL Sig: Take 1 tablet by mouth once daily for 14 days. Encounter Status:Closed by ION RODRIGES on 12/14/24 ALLERGIES DATE TYPE / CODE NAME / CODE REACTION SEVERITY SOURCE 06/22/2011 Environ/[id number]( SNOMED CT) BEE STING SWELLING [facility] 06/22/2011 DRUG INGREDI/606319843( SNOMED CT) DIPHENHYDRAMINE SWELLING [facility] 06/22/2011 Drug Class/[id number](SN OMED CT) PENICILLINS RASH [facility] ENCOUNTERS ADMIT/DISCHARGE ACCOUNT NUMBER ADMITTING ENCOUNTER CLASS LOC ATION SOURCE 12/14/2024/ [id number] Ambulatory [facility] HospitalBuild ing:LILLIAM [facility] PAYERS ENCOUNTER GUARANTOR PAYER SUBSCRIBER SOURCE 12/14/2024 Primary Insurance:[employer] Number: [id number] Date:[id number] Name:Jennifer ALVAREZ: [id number] [address] [address] [facility] 12/14/2024 Secondary Insurance:[employer] MEDICAIDPolicy Number: [id number] Date:[id number] Name:Edward GRANTB: [id number] [address] [address] [facility]
[2025-07-27 06:05] VITALS: BP 92/59; PULSE 80; RESP 20; TEMP 36.8; O2SAT 94; BMI 26.2
--- NOTE | 2025-07-27 06:07 | ED.VIS.CHEST ---
HPI History of Present Illness Chief Complaint: Chest Pain 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 Esophageal candidiasis Current use of insulin Back pain due to injury Restless legs Injury of head and neck COPD (chronic obstructive pulmonary disease) High cholesterol History of stress test Depression Chronic pain Non-smoker Sleep apnea Diabetes Hyperlipidemia Hypertension Myocardial infarct Home Medications ?Medication ?Instructions ?Recorded ?Last Taken ?Type glipizide 5 mg tablet 5 mg PO BID diabetes 03/19/22 03/18/22 History insulin glargine 100 unit/mL (3 18 unit subcut BID diabetes 03/19/22 03/18/22 History mL) subcutaneous pen (Lantus Solostar U-100 Insulin) hydrocortisone 1 % topical cream 1 applic topical TID PRN skin 08/26/23 Unknown Rx irritation #28.4 grams ibuprofen 600 mg tablet 600 mg PO Q8H PRN PRN pain #20 08/26/23 Unknown Rx TABLETS insulin glargine 100 unit/mL 1 unit subcut QPM 09/29/23 Unknown History subcutaneous solution (Lantus U-100 Insulin) levothyroxine 100 mcg tablet 100 mcg PO DAILY 09/29/23 Unknown History cyclobenzaprine 10 mg tablet 10 mg PO TID PRN Muscle Spasm #15 08/10/24 Unknown Rx TABLETS doxycycline hyclate 100 mg capsule 100 mg PO BID 7 days #14 caps 02/16/25 Unknown Rx sulfamethoxazole 800 1 tab PO BID 7 days #14 tabs 05/03/25 Unknown Rx mg-trimethoprim 160 mg tablet (Bactrim DS) pantoprazole 20 mg tablet,delayed 20 mg PO DAILY #30 tabs 05/22/25 Unknown Rx release (Protonix) [id number] 1 cap PO TID 05/23/25 Unknown History 36,000-114,000-180,000 unit capsule,delay rel (Creon) hydroxyzine HCl 25 mg tablet 25 mg PO TID PRN itching #20 tabs 05/29/25 Unknown Rx nitrofurantoin 100 mg PO Q12H 5 days #10 caps 05/30/25 Unknown Rx monohydrate/macrocrystals 100 mg capsule (Macrobid) diphenoxylate-atropine 2.5 1 tab PO 4X/DAY PRN diarrhea 5 06/14/25 Unknown Rx mg-0.025 mg tablet (Lomotil) days #20 tabs ondansetron 4 mg disintegrating 4 mg PO Q8H PRN PRN Nausea #10 tabs 07/25/25 Unknown Rx tablet Allergy/AdvReac Type Severity Reaction Status Date / Time diphenhydramine HCl (From Allergy Rash Verified 07/27/25 06:04 Benadryl) Penicillins Allergy Rash Verified 07/27/25 06:04 venom-honey bee (bee venom Allergy Swelling Verified 07/27/25 06:04 (honey bee)) Family History no significant family his Surgical History Hx of colonoscopy H/O hernia repair Hx of left knee surgery Hx of inguinal herniorrhaphy History of coronary artery stent placement Social History household members: none Smoking Status: Never smoker substance use type: does not use EXAM Physical Exam Const Vital Signs: 07/27/25 06:05 07/27/25 06:20 07/27/25 06:21 Temperature 98.2 F Temperature Source Oral Pulse Rate 80 78 Respiratory Rate 20 H 18 Blood Pressure 92/59 L 111/68 Blood Pressure Mean 70 82 Pulse Ox 94 97 Oxygen Delivery Method Room Air Room Air Room Air MDM MDM MDM Narrative Medical decision making narrative: HISTORY OF PRESENT ILLNESS: Chief complaint: Chest pain 65-year-old male hypertension, hyperlipidemia, type 2 diabetes, hypothyroidism, CAD, history of alcohol abuse. Patient noted to have chest pain 1 hour ago. He further states pain is not exertional. It is midsternal is not ripping or tearing. Does not radiate. Denies fever or chills but does note cough productive of yellow sputum. Denies new leg swelling. Denies unilateral leg swelling or any other VTE risk factors. Patient denies sudden onset of pain, no tearing sensation, no migratory symptoms, no new numbness, weakness or loss of sensation. Patient denies family history or personal history of Connective tissue disorders (Marfan's Syndrome, Anusha Danlos etc) REVIEW OF SYSTEMS: Pertinent positives: Chest pain Pertinent negatives: Shortness of breath, diaphoresis and nausea PHYSICAL EXAM: Nursing triage notes reviewed, Vital signs reviewed Constitutional: please see mdm HENT: MMM Eyes: Pupils equal round and reactive to light, Extraocular muscles intact Neck: No stridor, no JVD, full neck ROM Lungs: Clear to auscultation, No wheezing or rales. No increased work of breathing, no conversational dyspnea, no accessory muscle use, no nasal flaring. No respiratory distress noted Heart: Regular rate and rhythm, No murmurs, No rubs and No gallops, 2+ distal pulses (radial, femoral, posterior tibial) in all extremities Abdomen: Soft, there is no tenderness, rigidity, rebound or guarding, no obvious peritoneal signs, no palpable pulsatile abdominal masses, no auscultated abdominal bruit : No CVAT Extremities: No edema Neuro: No new focal neurological deficits, cranial nerves II through XII intact, 5/5 strength in all present extremities. Intact sensation to light touch in all present extremities, 2+ reflexes bilateral patella tendons. Skin: No rash or lesions noted MEDICAL DECISION MAKING: Chief Complaint: please see [facility] External records reviewed: Frequent ED utilizer. Reviewed stress echocardiogram from 2019 which showed no stress-induced ischemia. Factors affecting care: n as per [facility] Social determinants of health: Patient alcohol use History obtained from others: none Consults: none at this time [facility] Narrative: Patient was initially hemodynamically stable, afebrile and nontoxic-appearing. Exam without focal cardiopulmonary abnormalities. No stigmata of VTE, aortic dissection or CHF on initial exam. No pulse deficits. I considered the following differential diagnosis: ACS, arrhythmia, anemia, electrolyte disturbance, pneumothorax, pneumonia, pericarditis, aortic dissection, PE I obtained a broad lab and imaging work to further determine if the patient was suffering from a life-threatening etiology. Consider pulmonary embolism or aortic dissection potential etiologies given reported chest pain the patient's history and clinical exam not consistent with these etiologies. As such D-dimer and CTA of the chest is not indicated at this time ALL IMAGES (IF OBTAINED) HAVE BEEN PERSONALLY REVIEWED AND INTERPRETED BY MYSELF. EKG with normal sinus rhythm at 75, left ax deviation, no STEMI Initial troponin indeterminate. Will await delta troponin values CBC with no leukocytosis, no anemia or thrombocytopenia BMP without evidence of significant electrolyte abnormalities, no anion gap, no acute kidney injury. Noted baseline hyperglycemia I have personally reviewed the patient's chest x-ray. Chest x-ray is unremarkable for pulmonary edema, pneumothorax, pneumonia or focal cardiopulmonary abnormality. The patient and/or family, caregivers express understanding. The patient and/or family, caregivers agrees with the plan. Shared decision making: I will have a discussion with the patient and or visitors regarding risk/benefits of further testing or admission. They will be made aware of of the risk/benefits inherent in this decision they will be given the opportunity to voice understanding. Total critical care time today provided was at least 0 minutes. This excludes separately billable procedures. Critical care time (if documented) is secondary to the patient having high probability of clinically significant/life threatening deterioration in the patient's condition which required my urgent intervention. Impression: 1. Chest pain 2. History of alcohol Dispo: Signed out to a.m. ED attending physician pending delta troponin This note was generated with [employer] dictation software. It may contain incorrect words, spelling, and punctuation that were not noted in review of the chart prior to signing. Lab Data Labs: Laboratory Results - last 24 hr 07/27/25 07/27/25 05:54 06:10 WBC 6.4 RBC 4.70 Hgb 13.8 Hct 39.7 L MCV 84.5 MCH 29.4 MCHC 34.8 RDW Std Deviation 41.8 RDW Coeff of Manjinder 13.5 Plt Count 209 MPV 9.4 Immature Gran % (Auto) 0.300 Neut % (Auto) 66.2 Lymph % (Auto) 22.5 [place] % (Auto) 7.4 Eos % (Auto) 3.0 Baso % (Auto) 0.6 Absolute Neuts (auto) 4.2 Absolute Lymphs (auto) 1.43 Nucleated RBC % 0 Sodium 140 Potassium 3.9 Chloride 104 Carbon Dioxide 26.2 Anion Gap 9 BUN 17 Creatinine 0.97 Estim Creat Clear Calc 95.68 Est GFR (MDRD) Non-Af 86 BUN/Creatinine Ratio 17.2 Glucose 233 H Calcium 9.2 Troponin T High Sens 31 H POC Glucose 210 H Discharge Plan Triage Chief Complaint: Chest Pain ED Provider: Buster Pereyra Dx/Rx/DC Orders Prescriptions: No Action Creon 36,000-114,000- 180,000 unit capsule,delayed release(DR/EC) 1 cap PO TID Rx Instructions: administer with meals and/or snacks insulin glargine [Lantus Solostar U-100 Insulin] 100 unit/mL (3 mL) Insulin Pen 18 unit SUBCUT BID glipizide 5 mg tablet 5 mg PO BID Rx Instructions: Hold if glucose less than 130 mg/dl ibuprofen 600 mg tablet 600 mg PO Q8H PRN PRN (Reason: pain) Qty: 20 0RF hydrocortisone 1 % cream 1 applic topical TID PRN (Reason: skin irritation) Qty: 28.4 0RF levothyroxine 100 mcg tablet 100 mcg PO DAILY Patient Comments: Take 1 tab by mouth once daily on an empty stomach insulin glargine [Lantus U-100 Insulin] 100 unit/mL solution 1 unit subcut QPM cyclobenzaprine 10 mg tablet 10 mg PO TID PRN (Reason: Muscle Spasm) Qty: 15 0RF hydroxyzine HCl 25 mg tablet 25 mg PO TID PRN (Reason: itching) Qty: 20 0RF nitrofurantoin monohyd/m-cryst [Macrobid] 100 mg capsule 100 mg PO Q12H 5 Days Qty: 10 0RF Rx Instructions: must administer with a meal/food diphenoxylate-atropine [Lomotil] 2.5-0.025 mg tablet 1 tab PO 4X/DAY PRN (Reason: diarrhea) 5 Days Qty: 20 0RF ondansetron 4 mg tablet,disintegrating 4 mg PO Q8H PRN PRN (Reason: Nausea) Qty: 10 0RF doxycycline hyclate 100 mg capsule 100 mg PO BID 7 Days Qty: 14 0RF sulfamethoxazole-trimethoprim [Bactrim DS] 800-160 mg tablet 1 tab PO BID 7 Days Qty: 14 0RF pantoprazole [Protonix] 20 mg tablet,delayed release (DR/EC) 20 mg PO DAILY Qty: 30 0RF Primary Care Provider: Linden Chavez Referrals: Linden Chavez DO [Primary Care Provider, Family Practice] Print Language: Faroese
[2025-07-27 06:20] VITALS: BP 111/68; PULSE 78; RESP 18; O2SAT 97
--- NOTE | 2025-07-27 06:21 | EKG12_ITS ---
Test Reason : CP Blood Pressure : */* mmHG Vent. Rate : 75 BPM Atrial Rate : 75 BPM P-R Int : 194 ms QRS Dur : 98 ms QT Int : 412 ms P-R-T Axes : 47 -51 35 degrees QTcB Int : 460 ms Normal sinus rhythm Left anterior fascicular block Abnormal ECG Confirmed by BRISA WEN ([id number]), scientific publications editor ТАТЬЯНА HUIZAR ([id number]) on 07/29/2025 8:45:46 AM Referred By: Confirmed By: BRISA WEN
[2025-07-27 06:29] LABS: Hematocrit 39.7 % (40-54); Hemoglobin 13.8 g/dL (13.0-16.5); Immature Granulocytes Count 0.020 X10^3/uL (0.0-0.0); Mean Corp Hgb Conc 34.8 g/dL (32-36); Mean Corpuscular Volume 84.5 fL (80-94); Mean Platelet Vol. 9.4 fl (6.2-12.0); NRBC Flagged by Analyzer 0 % (0-5); Platelet Count 209 K/mm3 (150-450); RBC Distribution Width CV 13.5 % (11.6-14.6); RBC Distribution Width SD 41.8 fl (35.1-43.9); Red Blood Count 4.70 M/mm3 (4.6-6.2); White Blood Count 6.4 K/mm3 (4.4-11.0)
--- NOTE | 2025-07-27 06:40 | RAD_ITS ---
PROCEDURE: CHEST 1 VIEW (PORTABLE) 07/27/2025 REASON FOR EXAM: CHEST PAIN TECHNIQUE: Frontal view of the chest. COMPARISON: Chest x-ray 02/16/2025. FINDINGS: Hardware: Monitor electrodes overlie the chest. Heart: No cardiomegaly. Lungs: Atelectasis in the lung bases. No pleural effusion or pneumothorax. Bones: No acute bony abnormalities. RAD/Chest 1 View (Portable) IMPRESSION: Atelectasis in the lung bases. Reading Location: [id number]
[2025-07-27 06:54] LABS: Anion Gap 9 (5-15); BUN 17 mg/dL (4-19); BUN/Creat Ratio 17.2 RATIO (10-20); Calcium,Total 9.2 mg/dL (7.6-11.0); Carbon Dioxide 26.2 mmol/L (21.0-32.0); Chloride 104 mmol/L (98-108); Estimated Creatinine Clearance 95.68 ml/min (50-250); Glucose 233 mg/dL (70-99); Potassium 3.9 mmol/L (3.3-5.1); Troponin T High Sensitivity 31 ng/L (<=22)
[2025-07-27 07:03] VITALS: BP 103/66; PULSE 71; RESP 16; O2SAT 94
[2025-07-27 08:00] VITALS: BP 136/85; PULSE 78; RESP 14; O2SAT 97
[2025-07-27 08:53] LABS: Troponin T High Sens 2 HR 26 ng/L (<=22)
[2025-07-27 09:09] VITALS: BP 151/82; PULSE 78; RESP 18; TEMP 37; O2SAT 98
== END 2025-07-27 09:10 | disposition home or self-care (01) ==
PROVIDERS: Emergency Provider Emergency Medicine; PCP Family Medicine; Visit Provider Emergency Medicine
DX: R07.9 Chest pain, unspecified (principal); J44.9 Chronic obstructive pulmonary disease, unspecified; E11.9 Type 2 diabetes mellitus without complications; I25.10 Atherosclerotic heart disease of native coronary artery without angina pectoris; G47.30 Sleep apnea, unspecified; Z95.5 Presence of coronary angioplasty implant and graft
CPT/HCPCS: 71045; 80048; 82962; 84484; 85025; 93005; 99285; A4216

== ENCOUNTER → 2025-08-01 | Outpatient (CLI) | payer MEDICARE, MEDICAID, SELFPAY ==
--- NOTE | 2025-08-01 | LES_PTH ---
PATIENT: JERALD OLIVER LOC: [facility] U#:[id number] AGE/SX: 65/M ROOM: RE08/01/[address]: Dr. Tacho Hidalgo MD : [id number] BED: DIS: 08/01/2025 SPEC #: [id number] RECD: 08/01/25 15:44 STATUS: RICHARD MATEUS #: [id number] JOHN: 08/01/25 00:[address]: Tacho Hidalgo DEPT: SURGICAL PATHOLOGY RECD BY: Casey Truong ENTERED: 08/02/25 06:39 SP TYPE: Lesion OTHR DR: Dr. Linden Chavez, DO Tissues: A - Skin of face, NOS Procedures: Surgery Specimen Level IV HEADER OPERATION: Biopsy of right cheek lesion PRE-OP DIAGNOSIS: Right cheek lesion TISSUE SUBMITTED: A- Right cheek lesion, superior MICROSCOPIC DIAGNOSIS A. Skin, right cheek superior, "lesion", biopsy: * Basal cell carcinoma, ulcerated, involving an inked edge of the tissue. MICROSCOPIC DESCRIPTION Slides are reviewed. GROSS DESCRIPTION A. Received in formalin labeled with the patient's name and date of . Designated as " right cheek lesion superior #1" is a 0.7 x 0.2 x 0.2 cm gabriel-red, focally congested shaggy and disrupted portion of apparent skin. The resection margin is inked green. Entirely submitted in 1 cassette. MA 08/02/2025PT:[id number]
== END | disposition home or self-care (01) ==
LOC: LABSPEC 15:51
PROVIDERS: PCP Family Medicine; Referring Provider Surgery Plastic and Reconstructive Surgery; Visit Provider Surgery Plastic and Reconstructive Surgery
DX: C44.319 Basal cell carcinoma of skin of other parts of face (principal)
CPT/HCPCS: 88305

== ENCOUNTER 2025-08-07 23:06 | Emergency (ER) | payer MEDICARE, MEDICAID, SELFPAY ==
[2025-08-07 23:07] VITALS: BP 146/83; PULSE 73; RESP 18; TEMP 35.8; O2SAT 98
[2025-08-07 23:26] VITALS: BMI 26.4
--- NOTE | 2025-08-07 23:41 | EX.ED.DYSGE1 ---
HPI History of Present Illness Chief Complaint: Abd Pain Narrative Narrative: Chief complaint and HPI: 65-year-old male with past medical history of DM, HTN, HLD, hypothyroidism presents for evaluation of lower abdominal pain. Onset of symptoms this evening. Denies any fever, chills, shortness of breath, chest pain, nausea, vomiting, diarrhea, dysuria. States he was mildly constipated today but did have a bowel movement this morning. Review of systems: See HPI Medications: As listed on the chart Allergies: As listed on the chart PFSH: Per chart Vital signs: As listed on the chart. Reviewed. 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 Esophageal candidiasis Current use of insulin Back pain due to injury Restless legs Injury of head and neck COPD (chronic obstructive pulmonary disease) High cholesterol History of stress test Depression Chronic pain Non-smoker Sleep apnea Diabetes Hyperlipidemia Hypertension Myocardial infarct Home Medications ?Medication ?Instructions ?Recorded ?Last Taken ?Type glipizide 5 mg tablet 5 mg PO BID diabetes 03/19/22 03/18/22 History insulin glargine 100 unit/mL (3 18 unit subcut BID diabetes 03/19/22 03/18/22 History mL) subcutaneous pen (Lantus Solostar U-100 Insulin) insulin glargine 100 unit/mL 1 unit subcut QPM 09/29/23 Unknown History subcutaneous solution (Lantus U-100 Insulin) pantoprazole 20 mg tablet,delayed 20 mg PO DAILY #30 tabs 05/22/25 Unknown Rx release (Protonix) hydroxyzine HCl 25 mg tablet 25 mg PO TID PRN itching #20 tabs 05/29/25 Unknown Rx nitrofurantoin 100 mg PO Q12H 5 days #10 caps 05/30/25 Unknown Rx monohydrate/macrocrystals 100 mg capsule (Macrobid) ondansetron 4 mg disintegrating 4 mg PO Q8H PRN PRN Nausea #10 tabs 07/25/25 Unknown Rx tablet insulin human U-100 NPH-regulr 15 unit subcut BID 07/27/25 Unknown History 70-30 mix 100 unit/mL subcutaneous susp (Humulin 70/30 U-100 Insulin) levothyroxine 125 mcg tablet 125 mcg PO DAILY 07/27/25 Unknown History metformin 500 mg tablet 500 mg PO BID 07/27/25 Unknown History diphenoxylate-atropine 2.5 1 tab PO 4X/DAY PRN diarrhea 08/01/25 Unknown History mg-0.025 mg tablet insulin syringe-needle U-100 0.3 #10 ea 08/01/25 Unknown History mL 31 gauge x 15/64 Allergy/AdvReac Type Severity Reaction Status Date / Time diphenhydramine HCl (From Allergy Rash Verified 08/07/25 23:07 Benadryl) Penicillins Allergy Rash Verified 08/07/25 23:07 venom-honey bee (bee venom Allergy Swelling Verified 08/07/25 23:07 (honey bee)) Family History no significant family his Surgical History Hx of colonoscopy H/O hernia repair Hx of left knee surgery Hx of inguinal herniorrhaphy History of coronary artery stent placement Social History household members: none Smoking Status: Never smoker substance use type: does not use additional social history: pt denies vaping, denies edibles,denies marijuana use, denies blood clots, EXAM Physical Exam Const Vital Signs: 08/07/25 23:07 08/08/25 01:06 Temperature 96.5 F L Temperature Source Temporal Pulse Rate 73 72 Respiratory Rate 18 16 Blood Pressure 146/83 H 152/88 H Blood Pressure Mean 104 109 Pulse Ox 98 97 Oxygen Delivery Method Room Air MDM MDM MDM Narrative Medical decision making narrative: 65-year-old male with past medical history of DM, HTN, HLD, hypothyroidism presents for evaluation of lower abdominal pain. Onset of symptoms this evening. Denies any fever, chills, shortness of breath, chest pain, nausea, vomiting, diarrhea, dysuria. On presentation, patient no acute distress. Differential diagnosis includes but is not limited to viral gastroenteritis, constipation, pancreatitis, diverticulitis, UTI. NS bolus, Toradol, Zofran ordered for symptoms. Laboratory workup ordered including CT abdomen and pelvis. CBC without leukocytosis or anemia. Platelets unremarkable. CMP unremarkable. Lipase unremarkable. UA positive for UTI. Urine culture sent. On chart review, patient always has a positive urine. Last cultures have grew out pansensitive Staph aureus. Patient currently not endorsing any dysuria or urinary frequency however given his multiple untreated UTIs, I cannot say this is not a source of his abdominal pain therefore will treat with Bactrim DS. First dose given here. Prescription will be sent. CT abdomen pelvis shows mild circumferential wall thickening of the rectum, p similar to previous studies. Large amount of stool throughout the colon. Consistent with patient's constipation. On reevaluation, patient's abdominal pain has improved. He was offered an enema for his constipation but declined. Will send him home with a bowel regiment. Follow-up with primary care physician. Return precautions explained. He confirmed understand the plan. Patient will discharge home. Impression: 1. Abdominal pain 2. UTI 3. Constipation Lab Data Labs: Laboratory Results - last 24 hr 08/07/25 08/08/25 23:59 01:37 WBC 6.3 RBC 4.56 L Hgb 13.1 Hct 38.4 L MCV 84.2 MCH 28.7 MCHC 34.1 RDW Std Deviation 41.3 RDW Coeff of Manjinder 13.4 Plt Count 190 MPV 9.4 Immature Gran % (Auto) 0.300 Neut % (Auto) 65.4 Lymph % (Auto) 21.2 [place] % (Auto) 9.5 Eos % (Auto) 3.0 Baso % (Auto) 0.6 Absolute Neuts (auto) 4.1 Absolute Lymphs (auto) 1.34 Nucleated RBC % 0 Sodium 143 Potassium 4.3 Chloride 106 Carbon Dioxide 27.3 Anion Gap 10 BUN 15 Creatinine 0.92 Estim Creat Clear Calc 100.88 Est GFR (MDRD) Non-Af 93 BUN/Creatinine Ratio 16.8 Glucose 120 H Calcium 9.1 Total Bilirubin 0.31 AST 15 ALT 10 Alkaline Phosphatase 64 Total Protein 6.8 Albumin 3.9 Globulin 2.9 Albumin/Globulin Ratio 1.4 Lipase 10 L Urine Color Yellow Urine Clarity Cloudy Urine pH 6.0 Ur Specific [place] 1.015 Urine Protein 30 H Urine Glucose (UA) Normal Urine Ketones Negative Urine Occult Blood 50 H Urine Nitrite Positive H Urine Bilirubin Negative Urine Urobilinogen Normal Ur Leukocyte Esterase 500 H Urine RBC 0-5 SEEN Urine WBC >100 SEEN Ur Squamous Epith Cells 0-5 SEEN Ur Renal Epithelial Cell 0-5 SEEN Urine Bacteria 1+ Urine Mucus RARE Radiography Diagnostic Testing: Clinical Impression(s) from Imaging Studies Abdomen/Pelvis CT 08/08/25 23:39 IMPRESSION: 1. Mild circumferential wall thickening of the rectum, similar to the previous study and concerning for proctitis. 2. Large amount of stool throughout the colon. 3. Stable severe lower lumbar spondylosis with mild dextro convex lumbar scoliosis. Reading Location: [facility] Discharge Plan Triage Chief Complaint: Abd Pain ED Provider: Lewis Lyn Dx/Rx/DC Orders Prescriptions: No Action diphenoxylate-atropine 2.5-0.025 mg tablet 1 tab PO 4X/DAY PRN (Reason: diarrhea) (DME) insulin syringe-needle U-100 0.3 mL 31 gauge x 15/64 syringe See Rx Instructions .ROUTE BID Qty: 10 Rx Instructions: As directed insulin glargine [Lantus Solostar U-100 Insulin] 100 unit/mL (3 mL) Insulin Pen 18 unit SUBCUT BID glipizide 5 mg tablet 5 mg PO BID Rx Instructions: Hold if glucose less than 130 mg/dl insulin glargine [Lantus U-100 Insulin] 100 unit/mL solution 1 unit subcut QPM hydroxyzine HCl 25 mg tablet 25 mg PO TID PRN (Reason: itching) Qty: 20 0RF nitrofurantoin monohyd/m-cryst [Macrobid] 100 mg capsule 100 mg PO Q12H 5 Days Qty: 10 0RF Rx Instructions: must administer with a meal/food ondansetron 4 mg tablet,disintegrating 4 mg PO Q8H PRN PRN (Reason: Nausea) Qty: 10 0RF pantoprazole [Protonix] 20 mg tablet,delayed release (DR/EC) 20 mg PO DAILY Qty: 30 0RF metformin 500 mg tablet 500 mg PO BID Humulin 70/30 U-100 Insulin 100 unit/mL (70-30) suspension 15 unit subcut BID levothyroxine 125 mcg tablet 125 mcg PO DAILY Primary Care Provider: Linden Chavez Referrals: Linden Chavez DO [Primary Care Provider, Family Practice] Print Language: Bruneian
[2025-08-07] MEDS: 0.9% Normal Saline (1000mL) 1,000 ML 999 ML IV (23:57)
[2025-08-08 00:36] LABS: Hematocrit 38.4 % (40-54); Hemoglobin 13.1 g/dL (13.0-16.5); Immature Granulocytes Count 0.020 X10^3/uL (0.0-0.0); Mean Corp Hgb Conc 34.1 g/dL (32-36); Mean Corpuscular Volume 84.2 fL (80-94); Mean Platelet Vol. 9.4 fl (6.2-12.0); NRBC Flagged by Analyzer 0 % (0-5); Platelet Count 190 K/mm3 (150-450); RBC Distribution Width CV 13.4 % (11.6-14.6); RBC Distribution Width SD 41.3 fl (35.1-43.9); Red Blood Count 4.56 M/mm3 (4.6-6.2); White Blood Count 6.3 K/mm3 (4.4-11.0)
[2025-08-08 00:50] LABS: AST(SGOT) 15 U/L (<=37); Alanine Aminotransfer ALT/SGPT 10 U/L (<=46); Albumin, Serum 3.9 g/dL (3.4-4.8); Alkaline Phosphatase 64 U/L (40-129); Anion Gap 10 (5-15); BUN 15 mg/dL (4-19); BUN/Creat Ratio 16.8 RATIO (10-20); Calcium,Total 9.1 mg/dL (7.6-11.0); Carbon Dioxide 27.3 mmol/L (21.0-32.0); Chloride 106 mmol/L (98-108); Estimated Creatinine Clearance 100.88 ml/min (50-250); Globulin 2.9 g/dL (2.2-4.2); Glucose 120 mg/dL (70-99); Lipase 10 U/L (13-75); Potassium 4.3 mmol/L (3.3-5.1)
[2025-08-08 01:06] VITALS: BP 152/88; PULSE 72; RESP 16; O2SAT 97
[2025-08-08 01:50] LABS: Color, Urine Yellow (Yellow); Glucose, Dipstick Normal (Normal); Ketone-Dipstick Negative (Negative); Leukocyte Esterase-Dipstick 500 /ul (Negative); Nitrite-Dipstick Positive (Negative); Occult Blood-Urine 50 /ul (Negative); Protein-Dipstick 30 mg/dl (Negative); Specific Gravity, Urine 1.015 (1.002-1.030); Urine Bilirubin Dipstick Negative (Negative)
[2025-08-08 02:06] LABS: Red Blood Cells-Urine 0-5 SEEN /hpf (0-5)
[2025-08-08 02:07] LABS: Mucous, Urine RARE /hpf (<or=2+); Squamous Epithelial Cells - UA 0-5 SEEN /hpf (0-5)
[2025-08-08 02:14] VITALS: BP 152/88; PULSE 72; RESP 16; TEMP 36.8; O2SAT 97
[2025-08-08] MEDS: Smz/Tmp Ds Tablet 1 TABLET PO (02:21)
--- NOTE | 2025-08-08 23:39 | CT_ITS ---
PROCEDURE: ABDOMEN/PELVIS W IV CONT ONLY 08/08/2025 REASON FOR EXAM: ABDOMINAL PAIN TECHNIQUE: Procedure Code: [id number] Modality: CT Procedure: ABDOMEN/PELVIS W IV CONT ONLY Coronal and Sagittal reconstruction series were provided. CONTRAST: VOLUME: mL One or more dose reduction techniques were used (e.g., Automated exposure control, adjustment of the mA and/or kV according to patient size, use of iterative reconstruction technique. COMPARISON: 12/20/2024. FINDINGS: Reticular and linear densities within both lung bases are similar to the previous study and likely represent scarring and/or subsegmental atelectasis. The liver, gallbladder, pancreas, spleen, adrenal glands, kidneys, and urinary bladder appear unremarkable. A large amount of stool is noted within the colon. No evidence of a bowel obstruction. Mild circumferential wall thickening of the rectum is concerning for proctitis, with a similar appearance on the previous study as well.. The appendix is visualized and unremarkable. No intraperitoneal free air or free fluid. No abdominal nor pelvic lymphadenopathy. No acute osseous abnormality. No acute fracture. Severe degenerative changes are noted within the lower lumbar spine and a mild dextro convex lumbar scoliosis, unchanged. 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 CT/Abdomen/Pelvis W IV Cont ONLY IMPRESSION: 1. Mild circumferential wall thickening of the rectum, similar to the previous study and concerning for proctitis. 2. Large amount of stool throughout the colon. 3. Stable severe lower lumbar spondylosis with mild dextro convex lumbar scoli osis. Reading Location: [id number]
== END 2025-08-08 02:23 | disposition home or self-care (01) ==
PROVIDERS: Emergency Provider Surgery; PCP Family Medicine; Visit Provider Surgery
DX: N39.0 Urinary tract infection, site not specified (principal); J44.9 Chronic obstructive pulmonary disease, unspecified; E11.9 Type 2 diabetes mellitus without complications; Z79.4 Long term (current) use of insulin; K59.00 Constipation, unspecified; I10 Essential (primary) hypertension; E78.5 Hyperlipidemia, unspecified; E03.9 Hypothyroidism, unspecified; I25.2 Old myocardial infarction; Z95.5 Presence of coronary angioplasty implant and graft; Z79.84 Long term (current) use of oral hypoglycemic drugs; Z79.890 Hormone replacement therapy; Z79.899 Other long term (current) drug therapy
CPT/HCPCS: 74177; 80053; 81001; 83690; 85025; 87077; 87086; 87088; 87186; 96361; 96374; 96375; 96376; 99284; P9612; Q9967; J2405

== ENCOUNTER → 2025-08-08 | Outpatient (CLI) | payer MEDICARE, MEDICAID, SELFPAY ==
[2025-08-08 10:41] LABS: Hematocrit 38.0 % (40-54); Hemoglobin 13.1 g/dL (13.0-16.5); Immature Granulocytes Count 0.010 X10^3/uL (0.0-0.0); Mean Corp Hgb Conc 34.5 g/dL (32-36); Mean Corpuscular Volume 83.3 fL (80-94); Mean Platelet Vol. 9.0 fl (6.2-12.0); NRBC Flagged by Analyzer 0 % (0-5); Platelet Count 181 K/mm3 (150-450); RBC Distribution Width CV 13.3 % (11.6-14.6); RBC Distribution Width SD 39.9 fl (35.1-43.9); Red Blood Count 4.56 M/mm3 (4.6-6.2); White Blood Count 5.5 K/mm3 (4.4-11.0)
[2025-08-08 11:25] LABS: AST(SGOT) 19 U/L (<=37); Alanine Aminotransfer ALT/SGPT 10 U/L (<=46); Albumin, Serum 3.9 g/dL (3.4-4.8); Alkaline Phosphatase 62 U/L (40-129); Anion Gap 9 (5-15); BUN 14 mg/dL (4-19); BUN/Creat Ratio 15.7 RATIO (10-20); Calcium,Total 9.1 mg/dL (7.6-11.0); Carbon Dioxide 27.4 mmol/L (21.0-32.0); Chloride 105 mmol/L (98-108); Globulin 2.8 g/dL (2.2-4.2); Glucose 157 mg/dL (70-99); Potassium 4.0 mmol/L (3.3-5.1)
[2025-08-09 04:07] LABS: Prealbumin 20 mg/dL (10-36)
== END | disposition home or self-care (01) ==
LOC: LAB 10:22
PROVIDERS: PCP Family Medicine; Visit Provider Surgery Plastic and Reconstructive Surgery
DX: E11.9 Type 2 diabetes mellitus without complications (principal); Z79.4 Long term (current) use of insulin
CPT/HCPCS: 36415; 80053; 83036; 84134; 85025

== ENCOUNTER → 2025-08-22 | Outpatient (CLI) | payer MEDICARE, MEDICAID, SELFPAY | END | disposition home or self-care (01) | LOC: CT 17:41 | PROVIDERS: PCP Family Medicine; Referring Provider Surgery Plastic and Reconstructive Surgery; Visit Provider Surgery Plastic and Reconstructive Surgery | DX: D48.7 Neoplasm of uncertain behavior of other specified sites (principal) | CPT/HCPCS: 70496; 70498; Q9967 ==